=== PATIENT | male | born 1960 | race Caucasian/White ===

== ENCOUNTER 2023-10-04 11:27 | Outpatient (OUT) | payer MEDICARE, SELFPAY ==
--- NOTE | 2023-10-04 11:50 | XR_ITS ---
The [address] [address] Patient Name: MATEO STEARNS MRN: [id number] date: 1960 Sex: M Assigned Patient Location: [facility] Current Patient Location: [facility] Accession/Order Number: [id number] Exam Date: 10/04/2023 11:43 Report Date: 10/04/2023 13:50 At the request of: TANYA FELTON Procedure: XR hand RT min 3V PROCEDURE: XR hand RT min 3V COMPARISON: None. HISTORY: Right Hand Pain M79.641 FINDINGS: BONES:No acute fracture or dislocation. Flexion deformity of the fifth finger. Degenerative changes, severe at the first carpometacarpal joint where [id number]-[id number] articulation and proliferative osteophyte formation is observed SOFT TISSUES:Negative. No visible soft tissue swelling. EFFUSION:None visible. OTHER: Negative. XR/XR hand RT min 3V IMPRESSION: Osteoarthritis Electronically authenticated by: OK CISNEROS Date: 10/04/2023 13:50
--- NOTE | 2023-10-04 11:50 | XR_ITS ---
The [address] [address] Patient Name: MATEO STEARNS MRN: [id number] date: 1960 Sex: M Assigned Patient Location: [facility] Current Patient Location: [facility] Accession/Order Number: [id number] Exam Date: 10/04/2023 11:43 Report Date: 10/04/2023 16:13 At the request of: TANYA FELTON Procedure: XR cervical spine 2-3V XR cervical spine 2-3V, 10/04/2023 11:43 AM EST, [id number] INDICATION: Cervical Pain COMPARISON: None TECHNIQUE: 4 views submitted. FINDINGS: The bones appear osteopenic. There is grade 1 anterolisthesis of C4 on C5. No acute fracture or subluxation is identified. There is moderate disc space narrowing at C6/C7 and moderate anterior osteophyte formation at C3-C4, C5-C6 and C6-C7.. The visualized soft tissues appear unremarkable. There is bilateral facet arthropathy. XR/XR cervical spine 2-3V IMPRESSION: Degenerative changes. No acute fracture or subluxation is seen. Electronically authenticated by: JERRICA CHAIREZ Date: 10/04/2023 16:13
== END 2023-10-04 11:28 | disposition home or self-care (01) ==
LOC: RAD 11:31
PROVIDERS: PCP Nurse Practitioner; Visit Provider Nurse Practitioner
DX: M79.641 Pain in right hand (principal); M47.812 Spondylosis without myelopathy or radiculopathy, cervical region; M19.041 Primary osteoarthritis, right hand
CPT/HCPCS: 72040; 73130

== ENCOUNTER 2023-11-30 12:32 | Outpatient (OUT) | payer MEDICARE, SELFPAY ==
--- OUTSIDE RECORDS SUMMARY | 2023-11-30 12:36 | XMS_ITS | CCD ---
Author Name Unknown Address [address] [place] [address] Organization [facility] Care Team Providers Care Expedition Supervisor Name Role Phone Bryan Quick Attending Provider [phone] TANYA FELTON Primary Care Physician AICHHOLZ, GENERAL INTERNAL MEDICINE PHYSICIAN TANYA Primary Care Unavailable DR LEONOR MA Consulting Unavailable SAMSA ., ROBERTO Admitting Unavailable SAMSA ., ROBERTO Attending Unavailable SAMSA ., ROBERTO Consulting Unavailable AICHHOLZ, GENERAL INTERNAL MEDICINE PHYSICIAN TANYA Admitting Unavailable AICHHOLZ, GENERAL INTERNAL MEDICINE PHYSICIAN TANYA Attending Unavailable AICHHOLZ, GENERAL INTERNAL MEDICINE PHYSICIAN TANYA Consulting Unavailable AICHHOLZ, GENERAL INTERNAL MEDICINE PHYSICIAN TANYA Primary Care Unavailable AICHHOLZ, GENERAL INTERNAL MEDICINE PHYSICIAN TANAY Admitting Unavailable AICHHOLZ, GENERAL INTERNAL MEDICINE PHYSICIAN TANYA Primary Care Unavailable AICHHOLZ, GENERAL INTERNAL MEDICINE PHYSICIAN TANYA Attending Unavailable AICHHOLZ, GENERAL INTERNAL MEDICINE PHYSICIAN TANYA Consulting Unavailable AICHHOLZ, GENERAL INTERNAL MEDICINE PHYSICIAN TANYA Primary Care Unavailable DR LEONOR MA Consulting Unavailable SAMSA ., ROBERTO Admitting Unavailable SAMSA ., ROBERTO Attending Unavailable SAMSA ., ROBERTO Consulting Unavailable DR LEONOR MA Consulting Unavailable SAMSA ., ROBERTO Admitting Unavailable SAMSA ., ROBERTO Attending Unavailable SAMSA ., ROBERTO Consulting Unavailable DR ELSA NOBLE Admitting Unavailable DR OK CISNEROS V Consulting Unavailable AICHHOLZ, GENERAL INTERNAL MEDICINE PHYSICIAN TANYA Primary Care Unavailable DR ELSA NOBLE Attending Unavailable DR ELSA NOBLE Consulting Unavailable SAMSA ., ROBERTO Admitting Unavailable AICHHOLZ, GENERAL INTERNAL MEDICINE PHYSICIAN TANYA Primary Care Unavailable SAMSA ., ROBERTO Attending Unavailable SAMSA ., ROBERTO Consulting Unavailable SAMSA ., ROBERTO Admitting Unavailable AICHHOLZ, GENERAL INTERNAL MEDICINE PHYSICIAN TANYA Primary Care Unavailable ANIL, DR LEONOR Reina Consulting Unavailable SAMSA ., ROBERTO Attending Unavailable SAMSA ., ROBERTO Consulting Unavailable DIONY, Pino Reina Attending Unavailable VALDEZ, Pino Reina Referring Unavailable VALDEZ, Pino Reina Admitting Unavailable VALDEZ, Pino Reina Attending Unavailable VALDEZ, Pino Reina Attending Unavailable VALDEZ, Pino Reina Attending Unavailable VALDEZ, Pino Reina Attending Unavailable VALDEZ, Pino Reina Attending Unavailable VALDEZ, Pino R Referring Unavailable VALDEZ, Pino Reina Admitting Unavailable Allergies Allergy Classification Reported Allergen(s) Allergy Type Date of Onset Reaction(s) Facility (1 source) No Known Medication Allergies; Translations: [No Known Medication Allergies] Propensity to adverse reactions (disorder) [facility] Repository Medications Current Medications Medication Drug Class(es) Dates Sig (Normalized) Sig (Original) aspirin 81 mg oral tablet (6 sources) Platelet Aggregation Inhibitor, Nonsteroidal Anti-inflammatory Drug Start: 08-05-2022 take 81 mg by mouth once daily aspirin 81 mg, Oral, Daily Start Date: 08/05/22 Status: Ordered Start: 05-17-2022 [facility] 81 MG TABLET [facility] ASP[facility]IN [facility] 81 MG TABLET Start Date: 05/17/22 Status: Ordered Tessalon Perles (4 sources) Non-narcotic Antitussive Start: 08-05-2022 Tessalon Perles Oral, q12hr, PRN Cough Start Date: 08/05/22 Status: Ordered budesonide-formo terol 160 mcg-4.5 mcg/inh Inh Aer w/adapter (6 sources) Start: 05-17-2022 take 2 puff(s) by inhalation twice daily budesonide-form oterol 160 mcg-4.5 mcg/inh Inh Aer w/adapter 2 puff(s), Inhalation, BID, Refill(s) 0 Start Date: 05/17/22 Status: Ordered Start: 05-17-2022 budesonide-for moterol 160 mcg-4.5 mcg/inh Inh Aer w/adapter Refill(s) 0 Start Date: 05/17/22 Status: Ordered 24 hr dilTIAZem hydrochloride 180 mg extended release oral capsule (6 sources) Calcium Channel Torres Start: 05-17-2022 take 1 capsule by mouth once daily Dilt-XR 180 mg/24 hours oral capsule, extended release 180 mg = 1 cap(s), Oral, Daily, Refills(s) 0 Start Date: 05/17/22 Status: Ordered Start: 05-17-2022 Dilt-XR 180 mg /24 hours oral capsule, extended release Refills(s) 0 Start Date: 05/17/22 Status: Ordered Protonix (4 sources) Proton Pump Inhibitor Start: 08-05-2022 take 1 dose by mouth once daily roflumilast 0.5 mg oral tablet (6 sources) Phosphodiesterase 4 Inhibitor Start: 05-17-2022 take 1 tablet by mouth once daily Daliresp 500 mcg oral tablet 500 mcg = 1 tab(s), Oral, Daily, Refills(s) 0 Start Date: 05/17/22 Status: Ordered 60 actuat tiotropium 0.0025 mg/actuat inhalation spray (6 sources) Anticholinergic Start: 05-17-2022 take 1 puff(s) by inhalation once daily Spiriva Respimat 60 ACT 2.5 mcg/inh inhalation aerosol one puff, Inhalation, Daily, Refills(s) 0 Start Date: 05/17/22 Status: Ordered Start: 05-17-2022 Spiriva Respim at 60 ACT 2.5 mcg/inh inhalation aerosol Refills(s) 0 Start Date: 05/17/22 Status: Ordered Ventolin HFA 90 mcg/inh Aerosol-Adpt (6 sources) Start: 05-17-2022 take 1 puff(s) by inhalation every four hours Ventolin HFA 90 mcg/inh Aerosol-Adpt 1 puff(s), Inhalation, q4hr Shortness of breath or wheezing, Refill(s) 0 Start Date: 05/17/22 Status: Ordered Start: 05-17-2022 Ventolin HFA 9 0 mcg/inh Aerosol-Adpt Refill(s) 0 Start Date: 05/17/22 Status: Ordered Problems Active Problems Problem Classification Problem Date Documented Da te Episodic/Chronic Alcohol-related disorders (1 source) Alcohol dependence, uncomplicated; Translations: [ALCOHOL DEPENDENCE UNCOMPLICATED] Onset: 2 Chronic Cancer of prostate (2 sources) Malignant neoplasm of prostate; Translations: [Malignant tumor of prostate] Onset: 3 Chronic Chronic obstructive pulmonary disease and bronchiectasis (1 source) Emphysema, unspecified; Translations: [EMPHYSEMA UNSPECIFIED] Onset: 2 Chronic Esophageal disorders (6 sources) Gastroesophageal reflux disease 04-19-2022 Chronic Gout and other crystal arthropathies (6 sources) Gout 04-19-2022 Chronic Osteoarthritis (6 sources) Arthritis 04-19-2022 Chronic Other gastrointestinal disorders (6 sources) Scrotal mass 04-19-2022 Episodic Other nervous system disorders (6 sources) Neuropathy 04-19-2022 Chronic Other screening for suspected conditions (not mental disorders or infectious disease) (1 source) Encounter for screening for malignant neoplasm of prostate; Translations: [Screening for malignant neoplasm done] Onset: 2 Episodic Other skin disorders (3 sources) Sebaceous cyst of skin; Translations: [Sebaceous cyst] Onset: 2 Episodic Pleurisy; pneumothorax; pulmonary collapse (6 sources) Focal atelectasis 04-19-2022 Episodic Respiratory failure; insufficiency; arrest (adult) (6 sources) Chronic hypoxemic respiratory failure 04-19-2022 Chronic Unclassified (6 sources) Patient encounter status 05-17-2022 Unclassified (6 sources) Sebaceous cyst of skin 05-17-2022 Unclassified (1 source) COUGH, UNSPECIFIED; Translations: [COUGH, UNSPECIFIED] Onset: 2 Unclassified (1 source) CONTACT W/AND (SUSP) EXPOS COVID-19; Translations: [CONTACT W/AND (SUSP) EXPOS COVID-19] Onset: 2 Past or Other Problems Problem Classification Problem Date Documented Da te Episodic/Chronic Other aftercare (1 source) Other intermodal 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 service (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 therapy; Translations: [OTH LOCATE TECHNICIAN CURRENT DRUG THERAPY] Onset: 08-13-2022 Episodic Other lower respiratory disease (4 sources) Other nonspecific abnormal finding of lung field; Translations: [OTH NONSPECIFIC ABN FIND LNG FIELD] Onset: 01-04-2023 Episodic Other lower respiratory disease (1 source) Hemoptysis; Translations: [HEMOPTYSIS] Onset: 08-19-2022 Episodic Other lower respiratory disease (4 sources) Pleurodynia; Translations: [PLEURODYNIA] Onset: 08-12-2022 Episodic Other lower respiratory disease (4 sources) Shortness of breath; Translations: [SHORTNESS OF BREATH] Onset: 05-03-2022 Episodic Other nutritional; endocrine; and metabolic disorders (1 source) Abnormal weight loss; Translations: [ABNORMAL WEIGHT LOSS] Onset: 08-19-2022 Episodic Screening and history of mental health and substance abuse codes (1 source) Personal history of nicotine dependence; Translations: [PERSONAL HISTORY OF NICOTINE DEPEND] Onset: 08-13-2022 Episodic Results Test Name Value Interpretation Reference Range Facility IntraOperative Documentson 0 06-09-2023 IntraOperative Documents [id number] #1.00CD:127 [facility] Ambulatory Visit Summaryon 0 06-06-2023 Ambulatory Visit Summary MATEO STEARNS :1960 Visit Date:06/06/2023 Ambulatory Visit Instructions Your Diagnosis Prostate cancer Sebaceous cyst Tests Performed Urnls Dip Stick Auto w/o Microscopy POC 90211 Your Care Team Attending Physician - DIONY CHANDLER, Pino Reina Primary Care Physician - TANYA FELTON CNP This Is Your Medications List Contact prescribing physician if questions or concerns albuterol (Ventolin HFA 90 mcg/inh Aerosol-Adpt) aspirin benzonatate (Tessalon Perles) budesonide-formotero l (budesonide-formoter ol 160 mcg-4.5 mcg/inh Inh Aer w/adapter) diltiazem (Dilt-XR 180 mg/24 hours oral capsule, extended release) pantoprazole (Protonix) roflumilast (Daliresp 500 mcg oral tablet) tiotropium (Spiriva Respimat 60 ACT 2.5 mcg/inh inhalation aerosol) Procedures Performed Arthroplasty of the hip, Colonoscopy, Procedure on foot, Transrectal needle biopsy of prostate. Discharge Vitals Heart Rate (Peripheral) 72 Respiratory Rate 16 Blood Pressure 130/76 Height 175 cm Height 69 in Weight 64 kg Weight 140.8 lb BMI 20.9 What to do next Scheduled Follow-Up Appointments Tuesday 10:45 AM EST With: DIONY CHANDLER, Pino Reina Where: [facility] Patient Educationon 06-06-20 23 Patient Education Oncology Prostate Cancer The prostate is a small gland that produces fluid that makes up semen (seminal fluid). It is located below the bladder in men, in front of the rectum. Prostate cancer is the abnormal growth of cells in the prostate gland. What are the causes? The exact cause of this condition is not known. What increases the risk? You are more likely to develop this condition if: ? You are 65 years of age or older. ? You have a family history of prostate cancer. ? You have a family history of breast and ovarian cancer. ? You have genes that are passed from parent to child (inherited), such as BRCA1 and BRCA2. ? You have Goss syndrome. men and men of descent are diagnosed with prostate cancer at higher rates than other men. The reasons for this are not well understood and are likely due to a combination of genetic and environmental factors. What are the signs or symptoms? Symptoms of this condition include: ? Problems with urination. This may include: ? A weak or interrupted flow of urine. ? Trouble starting or stopping urination. ? Trouble emptying the bladder all the way. ? The need to urinate more often, especially at night. ? Blood in urine or semen. ? Persistent pain or discomfort in the lower back, lower abdomen, or hips. ? Trouble getting an erection. ? Weakness or numbness in the legs or feet. How is this diagnosed? This condition can be diagnosed with: ? A digital rectal exam. For this exam, a health care provider inserts a gloved finger into the rectum to feel the prostate gland. ? A blood test called a prostate-specific antigen (PSA) test. ? A procedure in which a sample of tissue is taken from the prostate and checked under a microscope (prostate biopsy). ? An imaging test called transrectal ultrasonography. Once the condition is diagnosed, tests will be done to determine how far the cancer has spread. This is called staging the cancer. Staging may involve imaging tests, such as a bone scan, CT scan, PET scan, or MRI. Stages of prostate cancer The stages of prostate cancer are as follows: ? Stage 1 (I). At this stage, the cancer is found in the prostate only. The cancer is not visible on imaging tests, and it is usually found by accident, such as during prostate surgery. ? Stage 2 (II). At this stage, the cancer is more advanced than it is in stage 1, but the cancer has not spread outside the prostate. ? Stage 3 (III). At this stage, the cancer has spread beyond the outer layer of the prostate to nearby tissues. The cancer may be found in the seminal vesicles, which are near the bladder and the prostate. ? Stage 4 (IV). At this stage, the cancer has spread to other parts of the body, such as the lymph nodes, bones, bladder, rectum, liver, or lungs. Prostate cancer grading Prostate cancer is also graded according to how the cancer cells look under a microscope. This is called the Hunters score and the total score can range from 6?10, indicating how likely it is that the cancer will spread (metastasize) to other parts of the body. The higher the score, the greater the likelihood that the cancer will spread. ? Brenden 6 or lower: This indicates that the cancer cells look similar to normal prostate cells (well differentiated). ? Hunters 7: This indicates that the cancer cells look somewhat similar to normal prostate cells (moderately differentiated). ? Brenden 8, 9, or 10: This indicates that the cancer cells look very different than normal prostate cells (poorly differentiated). How is this treated? Treatment for this condition depends on several factors, including the stage of the cancer, your age, personal preferences, and your overall health. Talk with your health care provider about treatment options that are recommended for you. Common treatments include: ? Observation for early stage prostate cancer (active surveillance). This involves having exams, blood tests, and in some cases, more biopsies. For some men, this is the only treatment needed. ? Surgery. Types of surgeries include: ? Open surgery (radical prostatectomy). In this surgery, a larger incision is made to remove the prostate. ? A laparoscopic radical prostatectomy. This is a surgery to remove the prostate and lymph nodes through several small incisions. It is often referred to as a minimally invasive surgery. ? A robotic radical prostatectomy. This is laparoscopic surgery to remove the prostate and lymph nodes with the help of robotic arms that are controlled by the surgeon. ? Cryoablation. This is surgery to freeze and destroy cancer cells. ? Radiation treatment. Types of radiation treatment include: ? External beam radiation. This type aims beams of radiation from outside the body at the prostate to destroy cancerous cells. ? Brachytherapy. This type uses radioactive needles, seeds, wires, or tubes that are implanted into the prostate gland. Like external be (more content not included)... Normal [facility] Urology Office/Clinic Noteon 06-06-2023 Urology Office/Clinic Note Chief Complaint elevated PSA HPI Staff Pt is here to review TRUS Bx pathology today. TRUS Bx done 05/17/23 due to a significant rise in his PSA. Pathology report shows 2 positive cores, left base and left lateral base with a GS of 6(3+3) in both. Current PSA done 04/08/23 was 4.46 and previous done 03/15/22 was 0.11. Previous dx of scrotal sebaceous cyst. Dysuria: no Incomplete bladder emptying: no Hematuria: no Frequency: no Urgency: no Nocturia: 1x Stream: no straining good stream Leaking: no Post void dripping: yes Wearing pads/ Depends: no Urge incontinence: no Stress incontinence: no Incontinence without Sensory Awareness: no Abdominal pain: no Flank pain: no Sexual complaints: no History of Present Illness Tests reviewed: reviewed UA, pathology report I have reviewed the previous health record information and history for this patient from Dr. Valdez. I have reviewed and verified the staff HPI to be accurate for this encounter. There have been no associated fever, chills, flank pain, or blood in the urine. Denies any urinary infections since last encounter. Review of Systems PHQ Score Initial Depression Screen Score: 0 ROS - Provider Constitutional: denies weight loss, denies hot flashes. Eyes: denies eye problems. Gastrointestinal: denies nausea, denies vomiting. Cardiovascular: denies chest pain or angina. Integumentary: no dryness Musculoskeletal: denies musculoskeletal symptoms. ENMT: denies otolaryngeal symptoms. Respiratory: no shortness of breath. Heme/Lymph: denies easy bleeding tendency, denies easy bruising tendency. Psychiatric: no confusion, no anxiety. Genitourinary: See HPI. Physical Exam Vitals & Measurements HR: 72(Peripheral) RR: 16 BP: 130/76 HT: 69 in HT: 175 cm WT: 64 kg WT: 140.8 lb BMI: 20.9 General Appearance: alert, no distress, well nourished, well developed male. Genitourinary: normal scrotum, normal testes, normal urethra, normal epididymis, normal vas deferens/spermatic cord. Flank Pain: none. Bladder: nonpalpable. Assessment/Plan 1. Prostate cancer (C61: Malignant neoplasm of prostate) ACTIVE SURVEILLANCE. Denies family history of Prostate cancer. PSA 03/15/2022 was 0.11 04/08/23 - 4.46 S/p TRUS/bx 05/17/23 - Brenden score 6 (3+3) in 2 cores each one is less than 10%. 2 HGPINs. The pathology report was reviewed with the patient in detail today. The report confirms evidence of malignancy. This was discussed with the patient and all questions were answered in terms the patient could understand completely, along with the implications. We will be making plans for further treatment and evaluation as the results demand. Discussed with patient, due to low GS, active surveillance is appropriate. The patient understands and agrees with this plan. -Follow up with PSA and ANNE-MARIE in 6 months or sooner if needed. Pt understands and agrees with plan. All questions/concerns were discussed. Pt to call the office if he encounters any issues prior. Pt acknowledges understanding. 2. Sebaceous cyst (L72.3: Sebaceous cyst) S/p excision of hemiscrotal 2 cm scrotal cyst 01/25/23. Path shows epidermal inclusion cyst, benign. UA today shows trace-lysed blood. Follow-up With When Contact Information DIONY CHANDLER, Pino Reina, FLAQUITO In 6 months [facility] [address], [place] [phone]- [phone] Additional Instructions: PSA and ANNE-MARIE Patient Education Prostate Cancer I, Vesta Cortes, personally scribed for Dr. Valdez on 06/06/2023 11:47:20. . Documentation recorded by the scribeVesta, accurately reflects the services(s) I performed and decisions made by me. Authenticated by Dr. Valdez on 06/06/2023 11:52:45. Problem List/Past Medical History Ongoing Arthritis Chronic GERD Chronic hypoxemic respiratory failure Gout Lobular atelectasis Neuropathy Prostate cancer Screening PSA (prostate specific antigen) Scrotal cyst Sebaceous cyst Historical No qualifying data Procedure/Surgical History Arthroplasty of the hip, Colonoscopy, Procedure on foot, Transrectal needle biopsy of prostate. Medications aspirin, 81 mg, Oral, Daily budesonide-formotero l 160 mcg-4.5 mcg/inh Inh Aer w/adapter, 2 puff(s), Inhalation, BID Daliresp 500 mcg oral tablet, 500 mcg= 1 tab(s), Oral, Daily Dilt-XR 180 mg/24 hours oral capsule, extended release, 180 mg= 1 cap(s), Oral, Daily Protonix, unknown dose, Oral, Daily Spiriva Respimat 60 ACT 2.5 mcg/inh inhalation aerosol, one puff, Inhalation, Daily Tessalon Perles, Oral, q12hr, PRN Ventolin HFA 90 mcg/inh Aerosol-Adpt, 1 puff(s), Inhalation, q4hr, PRN Allergies No Known Medication Allergies Social History Alcohol - Denies Alcohol Use, 06/06/2023 Substance Abuse - Denies Substance Abuse, 06/06/2023 Tobacco Former smoker, quit more than 30 days ago Tobacco Use:. Never Smokeless Tobacco Use:. Cigarettes, 02/07/2023 (more content not included)... Normal [facility] Comment on above: Result Comment: Elec tronically Signed By: Pino VALDEZ MD\.br\Date and Time Signed: 06/06/23 11:52 EDT\.br\Electronically Co-Signed By: Vesta Cortes\.br\Date and Time Co-Signed: 06/06/23 11:47 EDT Prostate Histology ([facility]) on 05-24-2023 Prostate Histology Diagnosis Info Invalid Interpretation Code [facility] Comment on above: Result Comment: A:Pr ostate,Left Lateral Base:Needle Biopsy Interpretation - - Acinar adenocarcinoma of prostate; Brenden score 6(3+3); Tumor measures 0.12 cm in length; 8% of the core involved by tumor; 1 of 1 core involved (see comment). MicroScopic Description - B:Prostate,Left Lateral Mid:Needle Biopsy Interpretation - - Benign prostatic tissue. MicroScopic Description - C:Prostate,Left Lateral Red Bud:Needle Biopsy Interpretation - - Benign prostatic tissue. MicroScopic Description - D:Prostate,Left Base:Needle Biopsy Interpretation - - Acinar adenocarcinoma of prostate; Hunters score 6(3+3); Tumor measures 0.08 cm in length; 4% of the core involved by tumor; 1 of 1 core involved (see comment). MicroScopic Description - - High-grade prostatic intraepithelial neoplasia (HGPIN). E:Prostate,Left Mid:Needle Biopsy Interpretation - - Benign prostatic tissue. MicroScopic Description - F:Prostate,Left Red Bud:Needle Biopsy Interpretation - - Atypical small acinar glands. MicroScopic Description - G:Prostate,Right Base:Needle Biopsy Interpretation - - Benign prostatic tissue. MicroScopic Description - H:Prostate,Right Mid:Needle Biopsy Interpretation - - Benign prostatic tissue. MicroScopic Description - I:Prostate,Right Red Bud:Needle Biopsy Interpretation - - High-grade prostatic intraepithelial neoplasia (HGPIN). MicroScopic Description - J:Prostate,Right Lateral Base:Needle Biopsy Interpretation - - High-grade prostatic intraepithelial neoplasia (HGPIN). MicroScopic Description - K:Prostate,Right Lateral Mid:Needle Biopsy Interpretation - - Benign prostatic tissue. MicroScopic Description - L:Prostate,Right Lateral Red Bud:Needle Biopsy Interpretation - - Benign prostatic tissue. MicroScopic Description - Gross Description Site ID:A color rivera-white fixative Formalin cores 1 units cm Site ID:B color rivera-white fixative Formalin cores 1 units cm Site ID:C color rivera-white fixative Formalin cores 1 units cm Site ID:D color rivera-white fixative Formalin cores 1 units cm Site ID:E color rivera-white fixative Formalin cores 1 units cm Site ID:F color rivera-white fixative Formalin cores 1 units cm Site ID:G color rivera-white fixative Formalin cores 1 units cm Site ID:H color rivera-white fixative Formalin cores 1 units cm Site ID:I color rivera-white fixative Formalin cores 1 units cm Site ID:J color rivera-white fixative Formalin cores 1 units cm Site ID:K color rivera-white fixative Formalin cores 1 units cm Site ID:L color rivera-white fixative Formalin cores 1 units cm Highest grade group: Brenden score 3+3=6, grade group 1. Highest percentage of core involvement: 8 % Cribriform pattern 4: Absent A and D: Adenocarcinoma cells demonstrate lack of basal cell lining per immunostain HMW cytokeratins /p63 and luminal positivity for P504S (PIN4 immunostain). This Grade Group system was recently endorsed by both the International Society of Urological Pathology (ISUP, 2015) and the World Health Organization (WHO). The use of one or more reagents in the above tests is regulated as an analytic specific reagent (ASR). The performance characteristics were determined by the [employer], [place]. They have not been cleared by the [place] Food and Drug Administration. The FDA has determined that such clearance or approval is not necessary. Appropriate positive and negative controls are performed and are acceptable. Electronically signed by : on: 05/24/2023 12:41:39 Performed By: #### 1 [id number] ####[facility] [id number] [place] [address] Consent for Procedure/Surger yon 05-17-2023 Consent for Procedure/Surgery [id number] 3#1.00CD:127 Normal [facility] Consent for Treatmenton 2 Consent for Treatment [id number] #1.00CD:127 Normal [facility] IntraOperative Documentson 0 05-17-2023 IntraOperative Documents [id number] 5#1.00CD:127 Normal [facility] Main OR Intraoperative Recor don 05-17-2023 Main OR Intraoperative Record IntraOp Document Type FTURO Summary Primary Physician: Pino VALDEZ MD Finalized Date/Time: 05/17/23 11:14:47 Pt. Name: JINNYMATEO/Sex: 1960 Male Med Rec #: [id number] Physician: Pino VALDEZ MD Financial #: [id number] Pt. Type: O Room/Bed: / Admit/Disch: 05/17/23 10:34:13 - Institution: Case Times FTURO Entry 1 Patient Times In Room 05/17/23 10:56:00 Out Room 05/17/23 11:14:00 Procedure Times Start 05/17/23 11:01:00 Stop 05/17/23 11:09:00 Anesthesia Times Last Modified By: Diana Kiran RN 05/17/23 11:14:41 Case Attendance FTURO Entry 1 Entry 2 Entry 3 Case Attendee DIONY CHANDLER, Pino Redding SANITATION SUPERVISOR, Diana Albarran RN Role Performed Surgeon - Primary Scrub - Primary Talent Advisor - Primary Time In 05/17/23 10:56:00 05/17/23 10:56:00 05/17/23 10:56:00 Time Out 05/17/23 11:14:00 05/17/23 11:14:00 05/17/23 11:14:00 Procedure PROSTATE TRANSRECTAL PROSTATE TRANSRECTAL PROSTATE TRANSRECTAL ULTRASOUND WITH BIO(.) ULTRASOUND WITH BIO(.) ULTRASOUND WITH BIO(.) Comments Last Modified By: Diana Kiran RN, RN, Diana Silvestre RN 05/17/23 11:14:43 05/17/23 11:14:43 05/17/23 11:14:43 Surgical Procedures FTURO Entry 1 Procedure Description Procedure PROSTATE TRANSRECTAL Modifiers . ULTRASOUND WITH BIOPSY Surgeon Description PROSTATE TRANSRECTAL ULTRASOUND WITH BIOPSY Primary Procedure Yes Primary Surgeon Pino VALDEZ MD Start 05/17/23 11:01:00 Stop 05/17/23 11:09:00 Anesthesia Type Local Surgical Service Urology Wound Class 2 - Clean-Contaminated Last Modified By: Diana Kiran RN 05/17/23 11:09:09 General Case Data FTURO Pre-Care Text: Classifies surgical wound, implements aseptic technique, initiates traffic control Entry 1 Case Information OR URO 1 FT Case Level None Wound Class 2 - Clean-Contaminated Specialty Urology Preop Diagnosis ELEVATED PSA Postop Same As Preop Yes Postop Diagnosis ELEVATED PSA Outcomes Met? Yes Last Modified By: Diana Kiran RN 05/17/23 11:05:23 Post-Care Text: The patient is free from signs and symptoms of infection EU IntraOp - FTURO Pre-Care Text: Implements protective measures prior to operative or invasive procedure, confirms identity before the operative or invasive procedure, verifies operative procedure, surgical site, and laterality Entry 1 EU Perioperative Protocols Procedure(s) PROSTATE TRANSRECTAL Patient Identity Birthday, ID Band ULTRASOUND WITH BIO(.) Verified (select at Check, Patient least 2): Participation Consents / H and P HandP, Surgery/Procedure Operative Site N/A Verified Consent Marking Verified Surgical Site Yes Laterality Verified Yes Verified Procedure Verified Yes Correct Patient Yes Position Verified Availability Equipment, Medication Time Out Pino VALDEZ MD, Verified (If Participants Chanell Redding CST, Applicable) Diana Kiran RN Time Out Complete 05/17/23 10:57:00 Allergies Reviewed? Yes Allergies Reviewed Self/Patient With Body Position Lateral, right side up Prep Area NONE Prep Agents None Skin. Condition Dry, Warm, Unable to Description UNABLE TO VISUALIZE DUE Visualize TO PATIENT PARTIALLY CLOTHED Additional FISH, Other (See Specimens Comment PROSTATE TISSUE X 12 Specimens Collected Comment) SPECIMENS Vitals - EU Blood Pressure 124/80 Pulse 76 bpm Respirations 20 br/min SPO2 97 % EBL 0 IandO - EU Total Intake 0 mL Total Output 0 mL Outcomes Met? Yes Last Modified By: Diana Kiran RN 05/17/23 11:07:17 Post-Care Text: The patient is free from signs and symptoms of injury caused by extraneous objects Sign Out FTURO Entry 1 Before Patient Leaves OR Nurse verbally Yes Nurse verbally Yes confirms with the confirms with the team the name of team that the procedure(s) instrument, sponge, recorded and needle counts are correct (or N/A) Nurse verbally Yes Nurse verbally Yes confirms with the confirms with the team how the team whether there specimen is labeled are any equipment (including patient problems to be name), if applicable addressed Sign Out Complete 05/17/23 11:09:00 Last Modified By: Diana Kiran RN 05/17/23 11:09:08 Case Comments Finalized By: Diana Kiran RN Document Signatures Signed By: Diana Kiran RN 05/17/23 11:14 Normal [facility] Main OR Preoperative Recordo n 05-17-2023 Main OR Preoperative Record Holding Area Document Type FTURO Summary Primary Physician: Pino VALDEZ MD Finalized Date/Time: 05/17/23 10:57:44 Pt. Name: MATEO STEARNS/Sex: 1960 Male Med Rec #: [id number] Physician: Pino VALDEZ MD Financial #: [id number] Pt. Type: O Room/Bed: / Admit/Disch: 05/17/23 10:34:13 - Institution: Case Times Holding FTURO Pre-Care Text: Verifies consent for planned procedure, identifies individual values and wishes concerning care, includes family members in perioperative teaching Secures patient's records' belongings, and valuables, maintains patient's dignity and privacy, and maintains patient confidentiality Entry 1 In Holding 05/17/23 10:47:00 Outcomes Met? Yes Last Modified By: Annia Andersen LPN 05/17/23 10:47:02 Post-Care Text: The patient participates in decisions affecting his or her perioperative plan of care The patient's right to privacy is maintained Surgery Checklist FTURO Entry 1 Patient Birthday, ID Band Procedure Surgical Consent, With Identification: Check, Patient Verification: Patient Participation NPO after Midnight: n/a Date/Time: 05/17/23 10:48:00 Personal Items: Glasses Personal Items glasses Comment: Complaints of Pain: No Skin Integrity Intact, [place], Warm, & Dry Vitals - EU Blood Pressure 124/80 Pulse 76 bpm Respirations 20 br/min SPO2 97 % RN Reviewed Yes Last Modified By: Diana Kiran RN 05/17/23 10:57:42 General Comments: Temp 37.0 Finalized By: Diana Kiran RN Document Signatures Signed By: Annia Andersen LPN 05/17/23 10:51 Diana Kiran RN 05/17/23 10:57 Normal [facility] Operative Reporton Operative Report Patient: MATEO STEARNS Age: 62 years Sex: Male : 1960 Associated Diagnoses: None Author: Pino VALDEZ MD Procedure Operative Information Details: Date/ Time: 05/17/2023 11:14:00. Pre-Op Dx: Elevated PSA - R97.20. Post-Op Dx: Same. Anesthesia Type: Local, Periprostatic Nerve Block. Procedure: Transrectal Ultrasound and Transrectal Ultrasound-Guided Biopsy of the Prostate. Complications: None. Risks/Benefits/Infor med Consent: Surgical risks, benefits, details of the procedure have been explained to the patient, Full informed consent has been obtained. Intraoperative Information Prepped: The patient was brought to the office suite, placed in the modified left lateral Vazquez position, The patient was draped appropriately, 80 mg Gentamicin IM injection administered. Procedure: Then 2% Xylocaine jelly was used for intrarectal anesthesia, After waiting several minutes, a well lubricated ultrasound probe was introduced per rectum, The prostate was carefully evaluated in the AP and Sagittal views. Volume: 26 CC. Specimens Removed: A total of 12 biopsies were taken, 6 from each side, and sent to pathology. Devices Implanted: None. Postoperative Information Discharge: The patient tolerated the procedure well and was discharged home in satisfactory condition, The patient was instructed to (Finish antibiotics, Avoid strenuous activity, Go to the emergency room for gross bleeding, fever, or chills). Radiology Report Procedure: Transrectal Ultrasound of the Prostate, Transrectal US guided needle biopsy of the prostate. Narrative: Ultrasound probe is introduced and performed in the longitudinal and transverse plains, The gland measures (49 MM Length, 43 MM Width, 24 MM Depth, with a calculated volume of 26 CC), The prostatic capsule and seminal vesicles appear to be within normal limits, The peripheral zone demonstrates No abnormalities, Rest of the prostate demonstrates No abnormalities, Ultrasound guidance was then utilized to obtain 12 biopsies, These were sent to pathology for evaluation. Normal [facility] Comment on above: Result Comment: Elec tronically Signed By: DIONY CHANDLER, Pino [email or web address].[email or web address]\Date and Time Signed: 05/17/23 11:16 EDT Outpatient Surgery Discharge Instructionon 05-17-2023 Outpatient Surgery Discharge Instruction [id number] 3#[email or web address]:127 Normal [facility] Patient Educationon 05-17-20 23 Patient Education Custom Transrectal Ultrasound of the Prostate with US guided biopsy ? Even though there are no visible incisions, multiple prostate biopsies have been taken through the rectum and you need to follow some instructions to minimize the risks of bleeding. ? You may see some blood in your urine and stool for up to 1 week (and blood in the semen for several months) ? Diet -You may resume your normal diet, but you may want to avoid alcohol, carbonated drinks, caffeine, and spicy foods, which may increase the irritation from the surgery. -Drink plenty of water to keep the urine clear. ? Activity -You should limit any physical activity for about 48 hours -No heavy lifting or straining (10 pound limit) -No driving a car and limit long car rides for 2 days -No strenuous exercise -No sexual intercourse until this is discussed with your doctor ? Bowels -Try to keep your bowel movements soft to minimize straining to have a bowel movement. -You may use a stool softener or over the counter laxative if needed -Difficult bowel movement may lead to straining and bleeding from the prostate ? Medications -You may resume your home medications unless instructed otherwise -Hold aspirin, ibuprofen, Coumadin (warfarin) and other blood thinners for about two days or until there is no active bleeding unless otherwise instructed -Finish the antibiotic which you have already started ? Things to watch for which would require an Emergency Room visit or call 911: (this is not a complete list) -Persistent or heavy bleeding or blood clots from the rectum or in the urine -Inability to urinate -Fever over 101.5 degrees Fahrenheit, with or without chills -Severe drug reactions with itching, hives or rash -Tenderness or swelling of the calves, chest pain, or shortness of breath ? Please call the office to arrange for your post-operative appointment in 1-2 weeks [phone] or [phone] Normal [facility] Prostate Histology ([facility]) on 05-17-2023 PH Method of Extraction Needle Biopsy Normal [facility] Comment on above: Performed By: #### 1 [id number] ####[facility] [address] [place] [address] PH Number of Jars 2 Invalid Interpretation Code [facility] Comment on above: Performed By: #### 1 [id number] ####[facility] [address] [address] PH Specimen 1 L Base Prostate Normal [facility] Comment on above: Performed By: #### 1 [id number] ####[facility] [address] [address] PH Specimen 10 R Lat Bse Prost Normal [facility] Comment on above: Performed By: #### 1 [id number] ####[facility] [address] [place] [address] PH Specimen 11 R Lat Mid Prost Normal [facility] Comment on above: Performed By: #### 1 [id number] ####[facility] [address] [place] [address] PH Specimen 12 R Lat Apx Prost Normal [facility] Comment on above: Performed By: #### 1 [id number] ####[facility] [address] [place] [address] PH Specimen 2 L Mid Prostate Normal [facility] Comment on above: Performed By: #### 1 [id number] ####[facility] [address] [place] [address] PH Specimen 3 L Apx Prostate Normal [facility] Comment on above: Performed By: #### 1 [id number] ####[facility] [address] [place] [address] PH Specimen 4 L Lat Bse Prost Normal [facility] Comment on above: Performed By: #### 1 [id number] ####[facility] [address] [place] [address] PH Specimen 5 L Lat Mid Prost Normal [facility] Comment on above: Performed By: #### 1 [id number] ####[facility] [address] [place] [address] PH Specimen 6 L Lat Apx Prost Normal [facility] Comment on above: Performed By: #### 1 [id number] ####[facility] [address] [place] [address] PH Specimen 7 R Base Prostate Normal [facility] Comment on above: Performed By: #### 1 [id number] ####[facility] [address] [place] [address] PH Specimen 8 R Mid Prostate Normal [facility] Comment on above: Performed By: #### 1 [id number] ####[facility] [address] [place] [address] PH Specimen 9 R Apx Prostate Normal [facility] Comment on above: Performed By: #### 1 [id number] ####[facility] [address] [place] [address] PH Type of Service Technical Only Normal [facility] Comment on above: Performed By: #### 1 [id number] ####[facility] [address] [place] [address] Lab Reportson 05-16-2023 Lab Reports [id number] #1.00CD:127 Normal [facility] Insurance Correspondenceon 0 04-29-2023 Insurance Correspondence [id number] 5#1.00CD:127 Normal [facility] PSA, FREE AND TOTAL RATIOon 04-13-2023 % Free PSA 12.1 % Normal [facility] Comment on above: Result Comment: The table below lists the probability of prostate cancer for men with non-suspicious ANNE-MARIE results and total PSA between 4 and 10 ng/mL, by patient age (Ernestine et al, DONALDO 1998, 279:1542). % Free PSA 50-64 yr 65-75 yr 0.00-10.00% 56% 55% 10.01-15.00% 24% 35% 15.01-20.00% 17% 23% 20.01-25.00% 10% 20% >25.00% 5% 9% Please note: Ernestine et al did not make specific recommendations regarding the use of percent free PSA for any other population of men. Performed By: #### H ISTGAL #### [facility] [address] [place] [address] Dr. James Crowley Prostate specific Ag [Mass/Vol] 3.4 ng/mL Normal 0.0-4.0 [facility] Comment on above: Result Comment: Rosa Elena HILLIA methodology. . According to the [employer], Serum PSA should decrease and remain at undetectable levels after radical prostatectomy. The AUA defines biochemical recurrence as an initial PSA value 0.2 ng/mL or greater followed by a subsequent confirmatory PSA value 0.2 ng/mL or greater. Values obtained with different assay methods or kits cannot be used interchangeably. Results cannot be interpreted as absolute evidence of the presence or absence of malignant disease. Performed By: #### H ISTGAL #### [facility] [address] [address] [address] James Crowley PSA, Free 0.41 ng/mL Normal N/A [facility] Comment on above: Result Comment: Roch e ECLIA methodology. Performed By: #### H ISTGAL #### [facility] [address] [address] [address] James Crowley CBC AUTO DIFFon 04-08-2023 BASO # 0.1 103/ul Normal 0.0-0.1 [facility] Comment on above: Performed By: #### C BC #### [facility] [address] [place] [address] Dr. James Crowley Basophils/100 WBC (Bld) 0.5 % Normal 0.2-2.0 [facility] Comment on above: Performed By: #### C BC #### [facility] [address] [place] [address] Dr. James Crowley EO # 0.1 103/ul Normal 0.0-0.7 [facility] Comment on above: Performed By: #### C BC #### [facility] [address] [place] [address] Dr. James Crowley Eosinophils/100 WBC (Bld) 1.3 % Normal 0.9-7.0 [facility] Comment on above: Performed By: #### C BC #### [facility] [address] [place] [address] Dr. James Crowley Erythrocyte distribution width (RBC) [Ratio] 13.5 % Normal 11.0-15.0 [facility] Comment on above: Performed By: #### C BC #### [facility] [address] [place] [address] Dr. James Crowley Hematocrit (Bld) [Volume fraction] 48.4 % Normal 42.0-54.0 [facility] Comment on above: Performed By: #### C BC #### [facility] [address] [place] [address] Dr. James Crowley Hemoglobin (Bld) [Mass/Vol] 15.6 g/dL Normal 14.0-18.0 [facility] Comment on above: Performed By: #### C BC #### [facility] [address] [place] [address] Dr. James Crowley IG # 0.08 10e3/ul Critically high 0.00-0.03 [facility] Comment on above: Performed By: #### C BC #### [facility] [address] [place] [address] Dr. James Crowley IG % 0.8 % Critically high 0.0-0.5 [facility] Comment on above: Performed By: #### C BC #### [facility] [address] [place] [address] Dr. James Crowley LYMPH # 3.1 103/ul Normal 1.2-3.8 [facility] Comment on above: Performed By: #### C BC #### [facility] [address] [place] [address] Dr. James Crowley Lymphocytes/100 WBC (Bld) 29.8 % Normal 20.5-60.0 [facility] Comment on above: Performed By: #### C BC #### [facility] [address] [place] [address] Dr. James Crowley MANUAL DIFF REQ NO Normal [facility] Comment on above: Performed By: #### C BC #### [facility] [address] [place] [address] Dr. James Crowley MCH (RBC) [Entitic mass] 29.3 pg Normal 25.9-34.0 [facility] Comment on above: Performed By: #### C BC #### [facility] [address] [place] [address] Dr. James Crowley MCHC (RBC) [Mass/Vol] 32.2 g/dL Normal 29.9-35.2 [facility] Comment on above: Performed By: #### C BC #### [facility] [address] [place] [address] Dr. James Crowley MCV (RBC) [Entitic vol] 90.8 fL Normal 80.0-94.0 [facility] Comment on above: Performed By: #### C BC #### [facility] [address] [place] [address] Dr. James Crowley MONO # 0.6 103/ul Normal 0.3-0.8 [facility] Comment on above: Performed By: #### C BC #### [facility] [address] [place] [address] Dr. James Crowley Monocytes/100 WBC (Bld) 5.9 % Normal 1.7-12.0 [facility] Comment on above: Performed By: #### C BC #### [facility] [address] [place] [address] Dr. James Crowley NEUT # 6.4 103/ul Normal 1.4-6.5 [facility] Comment on above: Performed By: #### C BC #### [facility] [address] [place] [address] Dr. James Crowley Neutrophils/100 WBC (Bld) 61.7 % Normal 43.0-75.0 [facility] Comment on above: Performed By: #### C BC #### [facility] [address] [place] [address] Dr. James Crowley Platelet mean volume (Bld) [Entitic vol] 9.1 fL Critically low 9.5-13.5 [facility] Comment on above: Performed By: #### C BC #### [facility] [address] [place] [address] Dr. James Crowley PLT 320 103/ul Normal 150-450 [facility] Comment on above: Performed By: #### C BC #### [facility] [address] [place] [address] Dr. James Crowley RBC 5.33 106/ul Normal 4.70-6.10 [facility] Comment on above: Performed By: #### C BC #### [facility] [address] [place] [address] Dr. James Crowley WBC 10.4 103/ul Normal 4.0-11.0 [facility] Comment on above: Performed By: #### C BC #### [facility] [address] [place] [address] CHEST W CONon 04-08-2023 CT CHEST W CON EXAMINATION: CT CHEST W CON HISTORY: Lung field abnormal ; follow-up right lung base mass COMPARISON: CT chest 01/04/2023, 10/07/2022, 03/08/2019 TECHNIQUE: Multi-planar CT images were created with IV contrast. Axial, Coronal, and Sagittal images. Dose reduction techniques were achieved by using automated exposure control and/or adjustment of mA and/or kV according to patient size and/or use of iterative reconstruction technique. FINDINGS: LUNGS: Emphysematous changes. 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 PLEURA: No mass, effusion, or pneumothorax. VASCULATURE: No abnormality. AYLA: No mass or adenopathy. MEDIASTINUM: Calcified lymph nodes. CARDIAC: No enlargement, pericardial thickening, or significant calcification. AORTA: Saccular aneurysm projecting left lateral from distal aortic arch, 3.5 cm in total diameter. CHEST WALL: No mass or axillary adenopathy. BONES: No bone lesion or fracture. LIMITED ABDOMEN: No suspicious findings Limited images of the upper abdomen. OTHER: Negative. IMPRESSION: 1. Moderate-marked emphysematous changes throughout the lungs. 2. Clearing of previously seen right basilar infiltrates. No suspicious nodules or findings. 3. Stable saccular aneurysm of distal aortic arch, 3.5 cm in diameter. Electronically authenticated by: LEONOR MA Date: 2023-04-08 10:41 Normal [facility] LIPID PROFILEon 04-08-2023 CHOL-HDL RATIO NORM SEE BELOW Normal [facility] Comment on above: Result Comment: 3.3 - 4.4 LOW RISK 4.4 - 7.1 AVERAGE RISK 7.1 - 11.0 MODERATE RISK >11.0 HIGH RISK Performed By: #### U NEO, LIPID #### [facility] [address] [address] [address] James Crowley Cholesterol [Mass/Vol] 204 mg/dL Critically high <=200 [facility] Comment on above: Performed By: #### U NEO, LIPID #### [facility] [address] [address] [address] James Crowley Cholesterol in HDL [Mass/Vol] 55 mg/dL Normal 40-60 [facility] Comment on above: Performed By: #### U NEO, LIPID #### [facility] [address] [place], [place] [address] Dr. James Crowley Cholesterol in LDL [Mass/Vol] 115.2 mg/dL Normal [facility] Comment on above: Performed By: #### U NEO, LIPID #### [facility] [address] [address] [address] James Crowley Cholesterol.total/Cho lesterol in HDL [Mass ratio] 3.7 {ratio} Normal [facility] Comment on above: Performed By: #### U NEO, LIPID #### [facility] [address] [address] [address] James Crowley HDL NORMAL > or = 60 mg/dl - LOW CARDIOVASCULAR RISK <40 mg/dl - HIGH CARDIOVASCULAR RISK Normal [facility] Comment on above: Performed By: #### U NEO, LIPID #### [facility] [address] [address] [address] James Crowley LDL CALC NORMAL SEE BELOW Normal [facility] Comment on above: Result Comment: <100 mg/dl OPTIMAL 100 - 129 mg/dl NEAR OR ABOVE OPTIMAL 130 - 159 mg/dl BORDERLINE HIGH 160 - 189 mg/dl HIGH >190 mg/dl VERY HIGH Performed By: #### U NEO, LIPID #### [facility] [address] [address] [address] James Crowley Triglyceride [Mass/Vol] 169 mg/dL Critically high <=150 [facility] [facility] Comment on above: Performed By: #### U NEO, LIPID #### [facility] [address] [address] [address] James Crowley VLDL CALC 33.8 mg/dL Normal [facility] Comment on above: Performed By: #### U NEO, LIPID #### [facility] [address] [address] [address] James Crowley PROF 14(COMP METB)on 023 Albumin [Mass/Vol] 3.7 g/dL Normal 3.4-5.0 [facility] Comment on above: Performed By: #### U NEO, LIPID #### [facility] [address] [address] [address] James Crowley Albumin/Globulin [Mass ratio] 0.9 {ratio} Normal [facility] Comment on above: Performed By: #### U NEO, LIPID #### [facility] [address] [address] [address] James Crowley ALP [Catalytic activity/Vol] 86 U/L Normal 46-116 [facility] Comment on above: Performed By: #### U NEO, LIPID #### [facility] [address] [address] [address] James Crowley ALT [Catalytic activity/Vol] 33 U/L Normal 16-63 [facility] Comment on above: Performed By: #### U NEO, LIPID #### [facility] [address] [address] [address] James Crowley Anion gap [Moles/Vol] 14.8 mmol/L Normal [facility] Comment on above: Performed By: #### U NEO, LIPID #### [facility] [address] [address] [address] James Crowley AST [Catalytic activity/Vol] 16 U/L Normal 15-37 [facility] Comment on above: Performed By: #### U NEO, LIPID #### [facility] [address] [address] [address] James Crowley Bilirubin [Mass/Vol] 0.7 mg/dL Normal 0.2-1.0 [facility] Comment on above: Performed By: #### U NEO, LIPID #### [facility] [address] [address] [address] James Crowley Calcium [Mass/Vol] 9.1 mg/dL Normal 8.5-10.1 [facility] Comment on above: Performed By: #### U NEO, LIPID #### [facility] [address] [place] [address] Dr. James Crowley Chloride [Moles/Vol] 107 mmol/L Normal 98-107 [facility] Comment on above: Performed By: #### U NEO, LIPID #### [facility] [address] [address] [address] James Crowley CO2 [Moles/Vol] 28.0 mmol/L Normal 21.0-32.0 [facility] [place] Comment on above: Performed By: #### U NEO, LIPID #### [facility] [address] [place] [address] Dr. James Crowley Creatinine [Mass/Vol] 1.10 mg/dL Normal 0.70-1.30 [facility] Comment on above: Performed By: #### U NEO, LIPID #### [facility] [address] [address] [address] James Crowley EGFR-AF MEXICAN >60 Normal >=60 [facility] Comment on above: Performed By: #### U NEO, LIPID #### [facility] [address] [address] [address] James Crowley EGFR-NON AF MEXICAN >60 Normal >=60 [facility] Comment on above: Performed By: #### U NEO, LIPID #### [facility] [address] [place] [address] Dr. James Crowley Globulin (S) [Mass/Vol] 3.9 g/dL Normal [facility] Comment on above: Performed By: #### U NEO, LIPID #### [facility] [address] [place] [address] Dr. James Crowley Glucose [Mass/Vol] 98 mg/dL Normal 74-106 [facility] Comment on above: Performed By: #### U NEO, LIPID #### [facility] [address] [place] [address] Dr. James Crowley Potassium [Moles/Vol] 3.8 mmol/L Normal 3.5-5.1 [facility] Comment on above: Performed By: #### U NEO, LIPID #### [facility] [address] [address] [address] James Crowley Protein [Mass/Vol] 7.6 g/dL Normal 6.4-8.2 [facility] Comment on above: Performed By: #### U NEO, LIPID #### [facility] [address] [place] [address] Dr. James Crowley Sodium [Moles/Vol] 146 mmol/L Critically high 136-145 [facility] Comment on above: Performed By: #### U NEO, LIPID #### [facility] [address] [place] [address] Dr. James Crowley Urea nitrogen [Mass/Vol] 18.0 mg/dL Normal 7.0-18.0 [facility] Comment on above: Performed By: #### U NEO, LIPID #### [facility] [address] [address] [address] James Crowley Urea nitrogen/Creatinine [Mass ratio] 16.4 mg/mg Normal [facility] Comment on above: Performed By: #### U NEO, LIPID #### [facility] [address] [address] [address] James Crowley URIC ACID SERUMon 04-08-2023 Urate [Mass/Vol] 6.7 mg/dL Normal 3.5-7.2 [facility] [place] Comment on above: Performed By: #### U NEO, LIPID #### [facility] [address] [address] [address] James Crowley Patient Educationon 02-08-20 Patient Education Oncology Cancer Screening for Men A cancer screening is a test or exam that checks for cancer. Your health care provider will recommend specific cancer screenings based on your age, personal history, and family history of cancer. Work with your health care provider to create a cancer screening schedule that protects your health. Why is cancer screening done? Cancer screening is done to look for cancer in the very early stages, before it spreads and becomes harder to treat and before you would start to notice symptoms. Finding cancer early improves the chances of successful treatment. It may save your life. Who should be screened for cancer? All men should be screened for colorectal cancer and skin cancer. Your health care provider may recommend screenings for other types of cancer if: ? You had cancer before. ? You have a family member with cancer. ? You have abnormal genes that could increase the risk of cancer. ? You have risk factors for certain cancers, such as smoking. When you should be screened for cancer depends on: ? Your age. ? Your medical history and your family's medical history. ? Certain lifestyle factors, such as smoking. ? Environmental exposure, such as to asbestos. What are some common cancer screenings? Lung cancer Lung cancer screening is done with a CT scan that looks for abnormal cells in the lungs. Discuss lung cancer screening with your health care provider if you are 55?74 years old and if any of the following apply to you: ? You currently smoke. ? You used to smoke heavily. ? You have a smoking history of 1 pack a day for 30 years or 2 packs a day for 15 years. ? You have quit smoking within the past 15 years. If you smoke heavily or if you used to smoke, you may need to be screened every year. Prostate cancer Prostate cancer screening is done with blood tests and an exam in which a health care provider uses a gloved finger to check prostate size (digital rectal exam). You may need to be screened for prostate cancer if: ? You have risk factors of prostate cancer, such as being or having a close family member with prostate cancer. ? You have inherited gene changes or a genetic condition, including BRCA1 or BRCA2 gene mutations or Goss syndrome. ? You have symptoms of prostate cancer, such as problems urinating or erectile dysfunction. Prostate cancer screening for men with average risk may start at age 50. Men with risk factors may need to be screened earlier at age 40?45. Once you have been screened for prostate cancer, future screening may be recommended based on the results of your blood tests. Colorectal cancer All adults should have screening for colorectal cancer starting at age 50 and continuing until age 75. Your health care provider may recommend screening at age 45. You will have tests every 1?10 years, depending on your results and the type of screening test. If you have a family history of colon or rectal cancer or other risk factors, you may need to start having screenings earlier. Talk with your health care provider about which screening test is right for you and how often you should be screened. Colorectal cancer screening looks for cancer or for growths called polyps that often form before cancer starts. Tests to look for cancer or polyps include: ? Colonoscopy or flexible sigmoidoscopy. For these procedures, a flexible tube with a small camera is inserted into the rectum. ? CT colonography. This test uses X-rays and a contrast dye to check the colon for polyps. If a polyp is found, you may need to have a colonoscopy so the polyp can be located and removed. Tests to look for cancer in the stool (feces) include: ? Guaiac-based fecal occult blood test (FOBT). This test detects blood in stool. It can be done at home with a kit. ? Fecal immunochemical test (FIT). This test detects blood in stool. For this test, you will need to collect stool samples at home. ? Stool DNA test. This test looks for blood in stool and any changes in DNA that can lead to colon cancer. For this test, you will need to collect a stool sample at home and send it to a lab. Skin cancer Skin cancer screening is done by checking the skin for unusual moles or spots and any changes in existing moles. Your health care provider should check your skin for signs of skin cancer at every physical exam. You should check your skin every month and tell your health care provider right away if anything looks unusual. Men with a xpytba-boki-uykjog risk for skin cancer may want to see a neuroscience specialist (bar assistant) for an annual body check. Where to find more information ? National Cancer [place]: https://www.cancer.g ov/about-cancer/scre ening ? Centers for Disease Control and Prevention: https://www.cdc.gov/ cancer/dcpc/preventi on/screening.htm ? [employer]: https://www.cancer.o rg/latest-news/4-can lzz-wigypmwlg-jsbnn- for-men.html Contact a health care (more content not included)... Normal [facility] Urology Office/Clinic Noteon 02-07-2023 Urology Office/Clinic Note Chief Complaint PO HPI Staff PO excision of 2cm scrotal cyst done 01/25/23, review pathology report. Previous DX: PSA screening, scrotal cyst, sebaceous cyst. Dysuria: denies pain or burning Incomplete bladder emptying: denies Hematuria: denies visible blood Frequency: denies Urgency: denies Nocturia: 1x a night Stream: denies hesitancy, denies weak stream Leaking: denies Post void dripping: denies Wearing pads/ Depends: denies Urge incontinence: denies Stress incontinence: denies Incontinence without Sensory Awareness: denies Abdominal pain: denies Flank pain: denies Sexual complaints: denies History of Present Illness Tests reviewed: reviewed UA, pathology. I have reviewed the previous health record information and history for this patient from Dr. Valdez. I have reviewed and verified the staff HPI to be accurate for this encounter. There have been no associated fever, chills, flank pain, or blood in the urine. Denies any urinary infections since last encounter. Review of Systems PHQ Score Initial Depression Screen Score: 0 ROS - Provider Constitutional: denies weight loss, denies hot flashes. Eyes: denies eye problems. Gastrointestinal: denies nausea, denies vomiting. Cardiovascular: denies chest pain or angina. Integumentary: no dryness Musculoskeletal: denies musculoskeletal symptoms. ENMT: denies otolaryngeal symptoms. Respiratory: no shortness of breath. Heme/Lymph: denies easy bleeding tendency, denies easy bruising tendency. Psychiatric: no confusion, no anxiety. Genitourinary: See HPI. Physical Exam Vitals & Measurements HR: 74(Peripheral) BP: 138/77 HT: 69 in HT: 175.0 cm WT: 64 kg WT: 140.8 lb BMI: 20.9 General Appearance: alert, no distress, well nourished, well developed male. Genitourinary: normal scrotum, normal testes, normal urethra, normal epididymis, normal vas deferens/spermatic cord. Flank Pain: none. Bladder: nonpalpable. Assessment/Plan PCP monitors PSA. 1. Sebaceous cyst (L72.3: Sebaceous cyst) S/p excision of hemiscrotal 2 cm scrotal cyst 01/25/23. Path shows epidermal inclusion cyst. UA today negative for blood and infection. Path reviewed with pt, benign. Denies any urinary habit complaints or complications PO. PE: stitch reaction. Follow up PRN. Pt understands and agrees with plan. Follow-up With When Contact Information DIONY CHANDLER, Pino Reina, URL [facility] [address] [place] [address]- Additional Instructions: PRN Patient Education Cancer Screening for Men IRadha, personally scribed for Dr. Valdez on 02/07/2023 12:59:37. . Documentation recorded by the scribe, Radha Nobles, accurately reflects the services(s) I performed and decisions made by me. Authenticated by Dr. Valdez on 02/07/2023 13:05:29. Problem List/Past Medical History Ongoing Arthritis Chronic GERD Chronic hypoxemic respiratory failure Gout Lobular atelectasis Neuropathy Screening PSA (prostate specific antigen) Scrotal cyst Sebaceous cyst Historical No qualifying data Procedure/Surgical History Arthroplasty of the hip, Colonoscopy, Procedure on foot. Medications aspirin, 81 mg, Oral, Daily budesonide-formotero l 160 mcg-4.5 mcg/inh Inh Aer w/adapter, 2 puff(s), Inhalation, BID Daliresp 500 mcg oral tablet, 500 mcg= 1 tab(s), Oral, Daily Dilt-XR 180 mg/24 hours oral capsule, extended release, 180 mg= 1 cap(s), Oral, Daily Protonix, unknown dose, Oral, Daily Spiriva Respimat 60 ACT 2.5 mcg/inh inhalation aerosol, one puff, Inhalation, Daily Tessalon Perles, Oral, q12hr, PRN Ventolin HFA 90 mcg/inh Aerosol-Adpt, 1 puff(s), Inhalation, q4hr, PRN Allergies No Known Medication Allergies Social History Tobacco Former smoker, quit more than 30 days ago Tobacco Use:. Never Smokeless Tobacco Use:. Cigarettes, 02/07/2023 Family History Alcoholism: Father. Emphysema: Father. Immunizations Vaccine Date Status SARS-CoV-2 (COVID-19) mRNAMUL.[id number] 09/25/2022 Recorded SARS-CoV-2 (COVID-19) mRNA BNT-162b2 vax 05/26/2021 Recorded SARS-CoV-2 (COVID-19) mRNA BNT-162b2 vax 05/05/2021 Recorded diphtheria/pertussis , acel/tetanus adult 03/11/2021 Recorded Lab Results Ambulatory Point of Care Results Bilirubin Urine Dipstick: 1+ Small (02/07/23 12:43:00) Blood Urine Dipstick: Negative (02/07/23 12:43:00) Glucose Urine Dipstick: Negative (02/07/23 12:43:00) Ketones Urine Dipstick: Negative (02/07/23 12:43:00) Leukocytes Urine Dipstick: Negative (02/07/23 12:43:00) Nitrite Urine Dipstick: Negative (02/07/23 12:43:00) Protein Urine Dipstick: Negative (02/07/23 12:43:00) Specific [place] Urine Dipstick: 1.010 (02/07/23 12:43:00) Urine Appearance Urine Dipstick: Clear (02/07/23 12:43:00) Urine Color Urine Dipstick: Light yellow (02/07/23 12:43:00) Urobilinogen Urine Dipstick: Normal 0.2-1 EU/dl (02/07/23 12:43:00) pH Uri (more content not included)... Normal [facility] Comment on above: Result Comment: Elec tronically Signed By: Pino VALDEZ MD\.br\Date and Time Signed: 02/07/23 13:05 EDT\.br\Electronically Co-Signed By: Radha Nobles\.br\Date and Time Co-Signed: 02/07/23 13:00 EDT Consent for Procedure/Surger yon 01-25-2023 Consent for Procedure/Surgery [id number] 8#1.00CD:127 [facility] Consent for Treatmenton - Consent for Treatment [id number] #1.00CD:127 [facility] IntraOperative Documentson 0 01-25-2023 IntraOperative Documents [id number] 3#1.00CD:127 [facility] Main OR Intraoperative Recor don 01-25-2023 Main OR Intraoperative Record IntraOp Document Type FTURO Summary Primary Physician: Pino VALDEZ MD Finalized Date/Time: 01/25/23 14:02:36 Pt. Name: MATEO STEARNS/Sex: 1960 Male Med Rec #: [id number] Physician: Pino VALDEZ MD Financial #: [id number] Pt. Type: O Room/Bed: / Admit/Disch: 01/25/23 12:39:00 - Institution: Case Times FTURO Entry 1 Patient Times In Room 01/25/23 13:35:00 Out Room 01/25/23 14:06:00 Procedure Times Start 01/25/23 13:40:00 Stop 01/25/23 14:01:00 Anesthesia Times Last Modified By: Jigar RN, Kinjal NINO 01/25/23 14:01:59 Case Attendance FTURO Entry 1 Entry 2 Entry 3 Case Attendee DIONY CHANDLER, Pino Kimball RN, CNOR, Oswaldo MORENO, Diana Layton Role Performed Surgeon - Primary Talent Advisor - Primary Scrub - Primary Time In 01/25/23 13:35:00 01/25/23 13:35:00 01/25/23 13:35:00 Time Out 01/25/23 14:06:00 01/25/23 14:06:00 01/25/23 14:06:00 Procedure SCROTAL/PERINEAL SCROTAL/PERINEAL SCROTAL/PERINEAL ABSCESS IandD(.) ABSCESS IandD(.) ABSCESS IandD(.) Comments Last Modified By: Jigar RN, CNOR, Jigar RN, CNOR, Jigar MCLEAN, BRADLEYOR, Kinjal 01/25/23 Kinjal 01/25/23 Kinjal 01/25/23 14:02:00 14:02:00 14:02:00 Surgical Procedures FTURO Entry 1 Procedure Description Procedure SCROTAL/PERINEAL Modifiers . ABSCESS IandD Surgeon Description EXCISION OF SCROTAL CYST Primary Procedure Yes Primary Surgeon DIONY CHANDLER, Pino Reina Start 01/25/23 13:40:00 Stop 01/25/23 14:01:00 Anesthesia Type Local Surgical Service Urology Wound Class 4 - Dirty Last Modified By: Jigar MCLEAN, Kinjal NINO 01/25/23 14:02:03 General Case Data FTURO Pre-Care Text: Classifies surgical wound, implements aseptic technique, initiates traffic control Entry 1 Case Information OR URO 1 FT Case Level None Wound Class 4 - Dirty Specialty Urology Preop Diagnosis SCROTAL CYST Postop Same As Preop Yes Postop Diagnosis SCROTAL CYST Outcomes Met? Yes Last Modified By: Jigar MCLEAN, MICA, Kinjal 01/25/23 13:50:35 Post-Care Text: The patient is free from signs and symptoms of infection EU IntraOp - FTURO Pre-Care Text: Implements protective measures prior to operative or invasive procedure, confirms identity before the operative or invasive procedure, verifies operative procedure, surgical site, and laterality Entry 1 EU Perioperative Protocols Procedure(s) SCROTAL/PERINEAL Patient Identity Birthday, Patient ABSCESS IandD(.) Verified (select at Participation least 2): Consents / H and P HandP, Surgery/Procedure Operative Site N/A Verified Consent Marking Verified Surgical Site Yes Laterality Verified n/a Verified Procedure Verified Yes Availability Equipment, Medication Verified (If Applicable) Time Out Pino VALDEZ MD, Time Out Complete 01/25/23 13:34:00 Participants MICA Kimball RN, Ruthann, McClain CST, Kimberly A Allergies Reviewed? Yes Allergies Reviewed Self/Patient With Body Position Supine Prep Area scrotum Prep Agents Betadine Solution Skin. Condition Unable to Visualize Additional Tissue Specimens Collected Vitals - EU Blood Pressure 146/95 Pulse 107 bpm Respirations SPO2 EBL 0 IandO - EU Total Intake 0 mL Total Output 0 mL Outcomes Met? Yes Last Modified By: MICA Kimball RN, Ruthann 01/25/23 13:52:45 Post-Care Text: The patient is free from signs and symptoms of injury caused by extraneous objects Sign Out FTURO Entry 1 Before Patient Leaves OR Nurse verbally Yes Nurse verbally Yes confirms with the confirms with the team the name of team that the procedure(s) instrument, sponge, recorded and needle counts are correct (or N/A) Nurse verbally Yes Nurse verbally Yes confirms with the confirms with the team how the team whether there specimen is labeled are any equipment (including patient problems to be name), if applicable addressed Sign Out Complete 01/25/23 14:04:00 Last Modified By: MICA Kimball RN, Ruthann 01/25/23 14:02:35 Case Comments Finalized By: MICA Kimball RN, Ruthann Document Signatures Signed By: MICA Kimball RN, Ruthann 01/25/23 14:02 Normal [facility] Main OR Preoperative Recordo n 01-25-2023 Main OR Preoperative Record Holding Area Document Type FTURO Summary Primary Physician: Pino VALDEZ MD Finalized Date/Time: 01/25/23 13:41:59 Pt. Name: MATEO STEARNS/Sex: 1960 Male Med Rec #: [id number] Physician: Pino VALDEZ MD Financial #: [id number] Pt. Type: O Room/Bed: / Admit/Disch: 01/25/23 12:39:00 - Institution: Case Times Holding FTURO Pre-Care Text: Verifies consent for planned procedure, identifies individual values and wishes concerning care, includes family members in perioperative teaching Secures patient's records' belongings, and valuables, maintains patient's dignity and privacy, and maintains patient confidentiality Entry 1 In Holding 01/25/23 12:59:00 Outcomes Met? Yes Last Modified By: Domonique Mcleod LPN 01/25/23 12:59:09 Post-Care Text: The patient participates in decisions affecting his or her perioperative plan of care The patient's right to privacy is maintained Surgery Checklist FTURO Entry 1 Patient Birthday, Patient Procedure History and Physical, Identification: Participation Verification: Surgical Consent, With Patient NPO after Midnight: No Date/Time: 01/25/23 12:59:00 Personal Items: Glasses Personal Items clothes Comment: Limitations: na Complaints of Pain: No Pain Comment: na Skin Integrity Intact, [place], Warm, & Dry Vitals - EU Blood Pressure 146/95 Pulse 107 bpm Respirations 18 br/min SPO2 91 % RN Reviewed Yes Last Modified By: MICA Kimball RN, Ruthann 01/25/23 13:41:58 General Comments: temp:36.7 Finalized By: MICA Kimball RN, Ruthann Document Signatures Signed By: Domonique Mcleod LPN 01/25/23 13:01 MICA Kimball RN, Ruthann 01/25/23 13:42 Normal [facility] Operative Reporton Operative Report Patient: MATEO STEARNS Age: 62 years Sex: Male : 1960 Associated Diagnoses: None Author: Pino VALDEZ MD Procedure Operative Information Details: Date/ Time: 01/25/2023 14:10:00. Pre-Op Dx: Condyloma - A63.0, Large scrotal cyst. Post-Op Dx: Scrotal cyst was excised. Anesthesia Type: Local. Procedure: Local Excision of Penile Condyloma, Local excision of a large scrotal cyst. Complications: None. Risks/Benefits/Infor med Consent: Surgical risks, benefits, details of the procedure have been explained to the patient, Full informed consent has been obtained. Intraoperative Information Prepped: The patient was brought to the procedure room, The patient was placed on the table in the supine position, The areas were prepped with Betadine. Anesthesia: The lesions were then anesthetized with infiltrated xylocaine by creating a wheal in the skin underneath them. Procedure: I then used a forceps and a scalpel and excised the lesions, The Bovie was used to coagulate, I then used a 4-0 Vicryl in an interrupted fashion to close the defect, Sterile dressing was applied. Devices Implanted: None. Postoperative Information Discharge: Patient tolerated the procedure well, Follow up will be in a week to remove the sutures. Normal [facility] Comment on above: Result Comment: Elec tronically Signed By: DIONY CHANDLER, Pino Bynum.br\Date and Time Signed: 01/25/23 14:11 EST Patient Educationon 01-25-20 Patient Education Custom Excision Penile Condyloma ? After excision may feel some minor discomfort over the treated areas, sometimes described as a stinging feeling much like a minor burn. ? In the next day or so, small scabs will form. Do not attempt to remove these scabs. ? The following instructions must be followed closely: -If you need pain pills, start before pain becomes intense. Antibiotics and pain pills are frequently less upsetting to your stomach if you take them with food such as crackers or bread. -If you have excessive or persistent pain, swelling, bleeding, nausea, vomiting, difficulty voiding, or any problems, you should first call your surgeon for advice. If you are unable to contact your surgeon, seek help from a hospital emergency room. ? If you were given drugs to make you drowsy or pain medication follow these instructions: -You should spend the remainder of the day and evening resting -You should not attempt to walk, including going to the bathroom without assistance. You may be lightheaded from the medication you received. -Eat light today to avoid nausea. You should be able to return to your normal diet 24 to 36 hours after your procedure. -For the next 24 hours, do not consume alcohol, attempt to drive, use power tools, sign important documents or make important decisions. After that only do so if you feel perfectly normal and alert. -Follow carefully and verbal or written instructions your surgeon may give you. ? Surgeons written instructions with a copy given to patient: -No sex for 2 weeks -You may shower the next day after your procedure. -Take the pain medication and antibiotics as directed Normal [facility] CT CHEST WO CONon 01-04-2023 CT CHEST WO CON EXAMINATION: CT CHEST WO CON HISTORY: Lung field abnormal ; follow-up right upper lobe mass COMPARISON: CT chest 10/07/2022, 08/18/2022 TECHNIQUE: Axial, Coronal, and Sagittal images were created without the administration of IV contrast material. Dose reduction techniques were achieved by using automated exposure control and/or adjustment of mA and/or kV according to patient size and/or use of iterative reconstruction technique. FINDINGS: LUNGS: 2.6 x 1.6 x 1.2 cm new spiculated opacity within anterior lateral right lower lobe adjacent the chest wall. Stable small spiculated opacities scattered within the right upper lobe. Stable, chronic collapse of right middle lobe of uncertain etiology. Marked emphysematous changes throughout the lungs. PLEURA: No mass, effusion, or pneumothorax. VASCULATURE: No abnormality. AYLA: No mass or adenopathy. MEDIASTINUM: No mass or adenopathy. CARDIAC: No enlargement or pericardial thickening. AORTA: No aneurysm or dissection. CHEST WALL: No mass or axillary adenopathy. BONES: No bone lesion or fracture. LIMITED ABDOMEN: No suspicious findings. Limited images of the upper abdomen. OTHER: Negative. IMPRESSION: 1. Interval development of a 2.6 cm spiculated opacity within anterior lateral right lung base; new infectious infiltrates are most likely. Follow-up CT chest without contrast in 3 months to document stability or clearing is needed to exclude malignancy. 2. Stable small spiculated opacities scattered within right upper lobe favoring chronic scarring. 3. Marked emphysematous changes. Electronically authenticated by: LEONOR MA Date: 2023-01-04 10:[address] [facility] [address] CHEST WO CONon 10-07-2022 CT CHEST WO CON EXAMINATION: CT CHEST WO CON HISTORY: Lung field abnormal ; follow-up pulmonary nodules COMPARISON: CT chest 08/18/2022, 04/09/2022 TECHNIQUE: Axial, Coronal, and Sagittal images were created without the administration of IV contrast material. Dose reduction techniques were achieved by using automated exposure control and/or adjustment of mA and/or kV according to patient size and/or use of iterative reconstruction technique. FINDINGS: LUNGS: Spiculated nodular opacities with some stranding within the right upper and middle lobes; decreased in size since prior study. Area of consolidation versus passive atelectasis within medial middle lobe; stable to slightly decreased, with partially patent bronchi. Moderate emphysematous changes. PLEURA: No mass, effusion, or pneumothorax. VASCULATURE: No abnormality. AYLA: Calcified left hilar lymph nodes. No enlarged lymph nodes. MEDIASTINUM: Multiple calcified small lymph nodes. CARDIAC: No enlargement or pericardial thickening. AORTA: No aneurysm or dissection. CHEST WALL: No mass or axillary adenopathy. BONES: No bone lesion or fracture. LIMITED ABDOMEN: Small stone within gallbladder. Limited images of the upper abdomen. OTHER: Negative. IMPRESSION: 1. Interval decrease in size of the spiculated opacities within the right upper lobe and middle lobe which were new on the 08/18/2022 study. Findings favor resolving infectious infiltrate. Consider follow-up CT chest without contrast in 2-3 months to document complete clearing. 2. Chronic granulomatous disease. 3. Cholelithiasis. Electronically authenticated by: LEONOR MA Date: 2022-10-07 16:05 Normal [facility] ACID FAST SMEAR AND CXon Acid Fast Culture Negative Normal [facility] Comment on above: Result Comment: No a tomi fast bacilli isolated after 6 weeks. Performed By: #### U NEO, LIPID #### [facility] [address] [address] [address] James Crowley Acid Fast Smear Negative Normal [facility] Comment on above: Performed By: #### U NEO, LIPID #### [facility] [address] [address] [address] James Crowley [employer] Specimen Processing Concentration Normal [facility] Comment on above: Performed By: #### U NEO, LIPID #### [facility] [address] [address] [address] James Crowley FUNGAL AB QUANTITAIVE DOUBLE IMMUNODIFFUon 08-22-2022 Aspergillus flavus Negative Normal Neg:<1:1 [facility] Comment on above: Performed By: #### F UNGUYI #### [facility] [address] [address] [address] James Crowley Aspergillus fumigatus Negative Normal Neg:<1:1 [facility] Comment on above: Performed By: #### F UNGUYI #### [facility] [address] [address] [address] James Crowley Aspergillus niger Negative Normal Neg:<1:1 [facility] Comment on above: Performed By: #### F UNGUYI #### [facility] [address] [address] [address] James Crowley Blastomyces Negative Normal Neg:<1:1 [facility] Comment on above: Performed By: #### F UNGUYI #### [facility] [address] [address] [address] James Crowley [place] B VIRUS ANTIBODIES on 08-21-2022 [place] B-1 Ab Negative Normal Neg:<1:8 [facility] Comment on above: Performed By: #### C OXSBV #### [facility] [address] [place] [address] Dr. James Crowley [place] B-2 Ab Negative Normal Neg:<1:8 [facility] Comment on above: Performed By: #### C OXSBV #### [facility] [address] [address] [address] James Crowley coxsackie B-3 Ab Negative Normal Neg:<1:8 [facility] Comment on above: Performed By: #### C OXSBV #### [facility] [address] [place] [address] Dr. James Crowley [place] B-4 Ab Negative Normal Neg:<1:8 [facility] Comment on above: Performed By: #### C OXSBV #### [facility] [address] [address] [address] James Crowley [place] B-5 Ab Negative Normal Neg:<1:8 [facility] Comment on above: Performed By: #### C OXSBV #### [facility] [address] [address] [address] James Crowley [place] B-6 Ab Negative Normal Neg:<1:8 [facility] Comment on above: Performed By: #### C OXSBV #### [facility] [address] [address] [address] James Crowley HISTOPLASMA CAP AB QUANT DID on 08-21-2022 Histoplasma Mycelial CF Ab. Negative Normal Neg:<1:2 [facility] Comment on above: Performed By: #### H ISTGAL #### [facility] [address] [place] [address] Dr. James Crowley Histoplasma Yeast CF Ab Negative Normal Neg:<1:2 [facility] Comment on above: Performed By: #### H ISTGAL #### [facility] [address] [place] [address] Dr. James Crowley [place] A VIRUS AB IGMon 0 08-20-2022 [place] A16 IgM Negative Normal Neg:<1:10 [facility] Comment on above: Performed By: #### C OXSIGM #### [facility] [address] [place] [address] Dr. James Crowley [place] A24 IgM Negative Normal Neg:<1:10 [facility] Comment on above: Performed By: #### C OXSIGM #### [facility] [address] [place] [address] Dr. James Crowley [place] A7 IgM Negative Normal Neg:<1:10 [facility] [place] Comment on above: Performed By: #### C OXSIGM #### [facility] [address] [place] [address] Dr. James Crowley [place] A9 IgM Negative Normal Neg:<1:10 [facility] Comment on above: Performed By: #### C OXSIGM #### [facility] [address] [place] [address] Dr. James Crowley HISTOPLASMA GALACTOMANNAN AG URINEon 08-20-2022 Histoplasma Gal'shwetha Ag <0.5 Normal <0.5 ng/mL [facility] Comment on above: Performed By: #### H ISTGAL #### [facility] [address] [place] [address] Dr. James Crowley QUANTIFERON TB GOLD PLUSon 0 08-20-2022 QuantiFERON Criteria Comment Normal [facility] Comment on above: Result Comment: Vick tiFERON-TB Gold Plus is a qualitative indirect test for M tuberculosis infection (including disease) and is intended for use in conjunction with risk assessment, radiography, and other medical and diagnostic evaluations. The QuantiFERON-TB Gold Plus result is determined by subtracting the Nil value from either TB antigen (Ag) value. The Mitogen tube serves as a control for the test. Performed By: #### Q NTTB #### [facility] [address] [place] [address] Dr. James Crowley QuantiFERON Incubation Incubation performed. Normal [facility] Comment on above: Performed By: #### Q NTTB #### [facility] [address] [place] [address] Dr. James Crowley QuantiFERON Mitogen Value >10.00 Normal [facility] Comment on above: Performed By: #### Q NTTB #### [facility] [address] [place] [address] Dr. James Crowley QuantiFERON Nil Value 0.04 IU/mL Normal [facility] Comment on above: Performed By: #### Q NTTB #### [facility] [address] [place] [address] Dr. James Crowley QuantiFERON TB1 Ag Value 0.04 IU/mL Normal [facility] Comment on above: Performed By: #### Q NTTB #### [facility] [address] [place] [address] Dr. James Crowley QuantiFERON TB2 Ag Value 0.05 IU/mL Normal [facility] Comment on above: Performed By: #### Q NTTB #### [facility] [address] [place] [address] Dr. James Crowley QuantiFERON-TB Gold Plus Negative Normal Negative [facility] Comment on above: Result Comment: No r esponse to M tuberculosis antigens detected. Infection with M tuberculosis is unlikely, but high risk individuals should be considered for additional testing (ATS/IDSA/CDC Clinical Practice Guidelines, 2017). The reference range is an Antigen minus Nil result of <0.35 IU/mL. Chemiluminescence immunoassay methodology Performed By: #### Q NTTB #### [facility] [address], [place] [address] Dr. James Crowley CREATININEon 08-18-2022 Creatinine [Mass/Vol] 0.97 mg/dL Normal 0.70-1.30 [facility] Comment on above: Performed By: #### H ISTGAL #### [facility] [address] [address] [address] James Crowley EGFR-AF MEXICAN >60 Normal >=60 [facility] [place] Comment on above: Performed By: #### H ISTGAL #### [facility] [address], [place] [address] Dr. James Crowley EGFR-NON AF MEXICAN >60 Normal >=60 [facility] Comment on above: Performed By: #### H ISTGAL #### [facility] [address] [address] [address] CHEST W CONon 08-18-2022 CT CHEST W CON EXAMINATION: CT CHEST W CON HISTORY: Imaging result abnormal ; right chest pain, acute cough, bloody sputum COMPARISON: CT chest 08/10/2022 TECHNIQUE: Multi-planar CT images were created with IV contrast. Axial, Coronal, and Sagittal images. Dose reduction techniques were achieved by using automated exposure control and/or adjustment of mA and/or kV according to patient size and/or use of iterative reconstruction technique. FINDINGS: LUNGS: Multiple new spiculated opacities scattered within right lung, largest is within lateral aspect of right upper lobe posterior segment, 3.6 x 2.2 x 1.2 cm. Stable, chronic atelectatic collapse versus consolidation of right middle lobe. Small, new patchy opacity within posterior left lung base. PLEURA: No mass, effusion, or pneumothorax. VASCULATURE: No abnormality. AYLA: Calcified lymph nodes. MEDIASTINUM: Calcified lymph nodes suggestive of chronic granulomatous disease. CARDIAC: No enlargement, pericardial thickening, or significant calcification. AORTA: No aneurysm or dissection. CHEST WALL: No mass or axillary adenopathy. BONES: No bone lesion or fracture. LIMITED ABDOMEN: No suspicious findings Limited images of the upper abdomen. OTHER: Negative. IMPRESSION: 1. Multiple new spiculated masses versus infectious infiltrate, predominantly involving the right lung. Findings are new since 04/09/2022. 2. Stable complete collapse of right middle lobe of uncertain etiology. Electronically authenticated by: LEONOR MA Date: 2022-08-18 10:27 Normal [facility] CULTURE SPUTUMon 08-18-2022 CULTURE SPUTUM Isolate 1 Haemophilus parainfluenzae Moderate growth of Normal [facility] Comment on above: Result Comment: Beta -Lactamase: Negative Performed By: #### H ISTGAL #### [facility] [address] [address] [address] James Crowley SPUTUM GRAM STAINon 08-18-20 22 COMMENTS Normal [facility] Comment on above: Performed By: #### H ISTGAL #### [facility] [address] [address] [address] James Crowley DIPHTHEROIDS Normal [facility] Comment on above: Performed By: #### H ISTGAL #### [facility] [address] [address] [address] James Crowley EPITHELIALS <25 Normal [facility] Comment on above: Performed By: #### H ISTGAL #### [facility] [address] [address] [address] James Crowley FUNGAL ELEMENTS Normal [facility] Comment on above: Performed By: #### H ISTGAL #### [facility] [address] [address] [address] James Crowley GRAM NEG BACILLI Normal [facility] Comment on above: Performed By: #### H ISTGAL #### [facility] [address] [address] [address] James KAN NEG DIPPLOCOCCI FEW Normal [facility] Comment on above: Performed By: #### H ISTGAL #### [facility] [address] [address] [address] James Crowley GRAM POS BACILLI Normal [facility] Comment on above: Performed By: #### H ISTGAL #### [facility] [address] [address] [address] James Crowley GRAM POSITIVE COCCI FEW Normal [facility] Comment on above: Performed By: #### H ISTGAL #### [facility] [address], [place] [address] Dr. James Crowley WBC (Bld) [#/Vol] 10*3/uL Normal [facility] Comment on above: Performed By: #### H ISTGAL #### [facility] [address], [place] [address] Dr. James Crowley XR RIBS RT PA Jmaes 2 XR RIBS RT PA CH EXAMINATION: XR RIBS RT PA CH HISTORY: Rib pain COMPARISON: 02/22/2022, 04/09/2022 FINDINGS: LUNGS: Focal density identified in the right midlung significantly increased from the prior exam PLEURA: No pneumothorax, effusion, or pleural thickening. MEDIASTINUM: Soft tissue fullness inferior right hilum CARDIAC: No cardiomegaly or cardiac silhouette abnormality. RIBS: No acute rib fracture OTHER: Negative. IMPRESSION: Increase in focal density in the right midlung. Malignancy should be considered. CT follow-up with contrast is recommended Electronically authenticated by: OK CISNEROS Date: 2022-08-12 13:02 Normal [facility] Covid-19 PCR (CVDTB)on SARS-CoV-2 (COVID-19) RNA SOURAV+probe Ql (Unsp spec) Not detected Normal NOT DETECTED [facility] Comment on above: Result Comment: When diagnostic testing is negative, the possibility of a false negative should be considered in the context of a patient's recent exposures and the presence of clinical signs and symptoms consistent with SARS-CoV-2. This test is not yet approved or cleared by the [place] FDA. When there are no FDA-approved or cleared tests available, and other criteria are met, FDA can make tests available under an emergency access mechanism called an Emergency Use Authorization (EUA). The EUA for this test is supported by the Test Evaluator of Health and Human Service's declaration that circumstances exist to justify the emergency use of in vitro diagnostics for the detection and/or diagnosis of the virus that causes COVID-19. This EUA will remain in effect for the duration of the COVID-19 declaration justifying emergency of IVDs, unless it is terminated or revoked by the FDA (after which the test may no longer be used). Performed By: #### C VDTBH #### [address] [address] [address] James Rey 03-24-2021 L Specimen: [id number] Received: 03/24/21 Status: [place] Barnesalisa Num: [id number] Spec Type: Surgical Subm Dr: Bryan Quick MD Tissues: A Skin-Other than Cyst, tag, debridement or plastic repair (LT NASAL DORSUM) Procedures: HE Stain, Gross/Micro L4 Patient Age/Sex Location Account Attending Physician Mateo Stearns/Oj CÁRDENAS [id number] Bryan Quick MD SPEC NUM: RECD: 03/24/21 STATUS: [place] MATHEWS NUM: [id number] FRANCISCA: 03/24/21 [facility] DR: Bryan Quick MD ENTERED: 03/24/[address] [facility] [address]: SPEC TYPE: Surgical DEPT: S ORDERED: HE Stain, Gross/Micro L4 ORDERED: HE Stain, Gross/Micro L4 Pathological Diagnosis Skin, left nasal dorsum, biopsy: - Actinic keratosis and solar elastosis - Epidermal inclusion cyst Clinical Information Mass increasing in size primary biopsy Gross Description Received in formalin labeled with the patient's name, number and left nasal dorsum are 2 rivera-pink to red, ragged tissue fragments that measure 1.2 cm and 1.4 cm. The resection margin is indeterminate. Entirely submitted in one cassette labeled A1. (SM/JS) Microscopic Description One glass slide with H E stained material has been examined. The microscopic findings support the above pathologic diagnosis. [id number] Specimen: Received: 03/24/21 Status: [place] Barnesalisa Num: [id number] Spec Type: Surgical Subm Dr: Bryan Quick MD Tissues: A Skin-Other than Cyst, tag, debridement or plastic repair (LT NASAL DORSUM) Procedures: HE Stain, Gross/Micro L4 Patient: Mateo Stearns [id number] (Continued) Signed (signature on file) Cindy Garcia MD 03/25/21 1824 [facility] Vital Signs Date Time Vital Sign Value Performing Clinician Dom jesus 06-06-2023 10:36-0400 Blood Pressure Location Pino VALDEZ [facility] 06-06-2023 10:36-0400 Diastolic blood pressure 76 mm[Hg] Pino VALDEZ [facility] 06-06-2023 10:36-0400 Heart rate 72 /min Pino VALDEZ [facility] 06-06-2023 10:36-0400 Respiratory rate 16 /min Pino VALDEZ [facility] 06-06-2023 10:36-0400 Systolic blood pressure 130 mm[Hg] Pino VALDEZ [facility] 02-07-2023 12:42-0400 Blood Pressure Location Pino VALDEZ [facility] 02-07-2023 12:42-0400 Diastolic blood pressure 77 mm[Hg] Pino VALDEZ [facility] 02-07-2023 12:42-0400 Heart rate 74 /min Pino VALDEZ [facility] 02-07-2023 12:42-0400 Systolic blood pressure 138 mm[Hg] Pino VALDEZ [facility] 05-17-2022 12:56-0400 Blood Pressure Location Pino VALDEZ [facility] 05-17-2022 12:56-0400 Diastolic blood pressure 87 mm[Hg] Pino VALDEZ [facility] 05-17-2022 12:56-0400 Heart rate 79 /min Pino VALDEZ [facility] 05-17-2022 12:56-0400 Respiratory rate 16 /min Pino VALDEZ [facility] 05-17-2022 12:56-0400 Systolic blood pressure 139 mm[Hg] Pino VALDEZ [facility] Encounters Encounter Date Encounter Type Care Provider Facility Start: 01-02-2024 ambulatory Pino Omalleyi ty:[facility] Start: 07-22-2023 ambulatory Pino Omalleyi ty:[facility] Start: 06-06-2023 End: 06-07-2023 ambulatory Pnio VALDEZ Facility:[facility] Start: 06-06-2023 End: 06-06-2023 Patient encounter procedure [facility] Start: 05-17-2023 End: 05-18-2023 ambulatory Pino VALDEZ Facility[facility] Start: 05-17-2023 End: 05-17-2023 Patient encounter procedure Pino VALDEZ [facility] Start: 04-12-2023 End: 04-13-2023 ambulatory [facility] TANYA AICHMACIEL Facility:[facility] Start: 04-08-2023 End: 04-09-2023 ambulatory [facility] PHYSICIAN TANYA AICJERICHOZ Facility:[facility] Start: 02-07-2023 End: 02-08-2023 ambulatory Pino VALDEZ Facility:[facility] Start: 02-07-2023 End: 02-07-2023 Patient encounter procedure [facility] Start: 01-25-2023 End: 01-26-2023 ambulatory Pino VALDEZ Facility:[facility] Start: 01-04-2023 End: 01-05-2023 ambulatory [facility] PHYSICIAN TANYA AICHDIAMONDZ Facility:[facility] Start: 10-07-2022 End: 10-08-2022 ambulatory [facility] PHYSICIAN TANYA AICKashmirDIAMONDZ Facility:[facility] Start: 08-18-2022 End: 08-19-2022 ambulatory ROBERTO ALVES . Facility:[facility] Start: 08-12-2022 End: 08-12-[address] ELSA RAE . Facility:[facility] Start: 07-20-2022 End: 08-11-2022 Pre-admission assessment Pinomichelle VALDEZ [facility] Start: 05-17-2022 End: 06-16-2022 Pre-admission assessment Pino Latosha VALDEZ [facility] Start: 05-17-2022 End: 05-17-2022 Patient encounter procedure Pino VALDEZ [facility] Start: 05-03-2022 End: 05-03-2022 ambulatory ROBERTO ALVES . Facility: Start: 03-24-2021 End: 03-24-2021 Departed Referred Bryan Quick Work Phone: [facility] [place] Procedures Date Procedure Procedure Detail Performing Clinician Start: 04-08-2023 PSA screening [facility]IC[facility] PHYSICIAN TANYA FELTON Comment on above: Performed By: #### P [facility] #### [facility] [address] [place] [address] Dr. James Jeffries Pino VALDEZ Procedure on foot Pino LAKESHA LEON Repair of hip Pino VALDEZ Comment on above: Both hips Both hips Transrectal needle b iopsy of prostate Pino VALDEZ Immunizations Immunization Date Immunization Notes Care Provider Jenni dominguez 09-25-2022 SARS-CoV-2 (COVID-19 ) [id number] Pino VALDEZ [facility] 05-26-2021 SARS-CoV-2 (COVID-19 ) mRNA BNT-162b2 vax Pinomichelle VALDEZ [facility] 05-05-2021 SARS-CoV-2 (COVID-19 ) mRNA BNT-162b2 vax Pinomichelle VALDEZ [facility] 03-11-2021 tetanus toxoid, redu liyah diphtheria toxoid, and acellular pertussis vaccine, adsorbed Pinomichelle VALDEZ [facility] [facility] Payers Date Payer Category Payer Medicaid [id number] 1961 Medicare [id number] 1961 Unknown [id number] 1960 Unknown [id number] 2.16.84 [id number] 1958 Unknown [id number] 2.16.84 0.1.190302.3.579.2.593 1958 Unknown [id number] 2.16.84 0.1.274242.3.579.2.593 1958 Unknown [id number] 2.16.84 0.1.053157.3.579.2.593 1958 Unknown [id number] 2.16.84 0.1.376927.3.579.2.593 1958 Unknown [id number] 2.16.84 0.1.648711.3.579.2.593 1958 Unknown [id number] 2.16.84 0.1.684589.3.579.2.593 1958 Unknown [id number] 2.16.84 0.1.335774.3.579.2.593 1958 Unknown [id number] 2.16.8 40.1.561910.3.579.2.727 1958 Unknown [id number] 2.16.8 40.1.555300.3.579.2.727 1958 Unknown [id number] 2.16.8 40.1.501146.3.579.2.727 1958 Unknown [id number] 2.16.8 40.1.584785.3.579.2.727 1958 Unknown [id number] 2.16.8 40.1.900062.3.579.2.727 1958 Unknown [id number] 2.16.8 40.1.174964.3.579.2.727 Self-pay Self Pay [id number] Social History Date Type Detail Facility [facility] Start: 1960 Sex Assigned At Male [facility] Start: 05-17-2022 End: 02-07-2023 Tobacco smoking status Ex-smoker (finding) [facility] Sex Assigned At Male [facility] Tobacco smoking status Never [facility] Goals Date Patient Goal Desired Activity /State Functional Status Date Assessment Result Facility 06-06-2023 Functional Status N/A [facility] 05-17-2023 Functional Status N/A [facility] 02-07-2023 Functional Status N/A [facility] 08-05-2022 N/A [facility] 06-11-2022 Functional Status N/A [facility] 05-17-2022 Functional Status N/A [facility] Clinical Notes 05-17-2022 to 06-06-2023 Note Date & Type Note Facility 06-06-2023 Hospital Discharg e instructions Patient Education 06/06/2023 11:47:03 Prostate Cancer Prostate Cancer The prostate is a small gland that produces fluid that makes up semen (seminal fluid). It is located below the bladder in men, in front of the rectum. Prostate cancer is the abnormal growth of cells in the prostate gland. What are the causes? The exact cause of this condition is not known. What increases the risk? You are more likely to develop this condition if: You are 65 years of age or older. You have a family history of prostate cancer. You have a family history of breast and ovarian cancer. You have genes that are passed from parent to child (inherited), such as BRCA1 and BRCA2. You have Goss syndrome. men and men of descent are diagnosed with prostate cancer at higher rates than other men. The reasons for this are not well understood and are likely due to a combination of genetic and environmental factors. What are the signs or symptoms? Symptoms of this condition include: Problems with urination. This may include: ?A weak or interrupted flow of urine. ?Trouble starting or stopping urination. ?Trouble emptying the bladder all the way. ?The need to urinate more often, especially at night. Blood in urine or semen. Persistent pain or discomfort in the lower back, lower abdomen, or hips. Trouble getting an erection. Weakness or numbness in the legs or feet. How is this diagnosed? This condition can be diagnosed with: A digital rectal exam. For this exam, a health care provider inserts a gloved finger into the rectum to feel the prostate gland. A blood test called a prostate-specific antigen (PSA) test. A procedure in which a sample of tissue is taken from the prostate and checked under a microscope (prostate biopsy). An imaging test called transrectal ultrasonography. Once the condition is diagnosed, tests will be done to determine how far the cancer has spread. This is called staging the cancer. Staging may involve imaging tests, such as a bone scan, CT scan, PET scan, or MRI. Stages of prostate cancer The stages of prostate cancer are as follows: Stage 1 (I). At this stage, the cancer is found in the prostate only. The cancer is not visible on imaging tests, and it is usually found by accident, such as during prostate surgery. Stage 2 (II). At this stage, the cancer is more advanced than it is in stage 1, but the cancer has not spread outside the prostate. Stage 3 (III). At this stage, the cancer has spread beyond the outer layer of the prostate to nearby tissues. The cancer may be found in the seminal vesicles, which are near the bladder and the prostate. Stage 4 (IV). At this stage, the cancer has spread to other parts of the body, such as the lymph nodes, bones, bladder, rectum, liver, or lungs. Prostate cancer grading Prostate cancer is also graded according to how the cancer cells look under a microscope. This is called the Brenden score and the total score can range from 6 10, indicating how likely it is that the cancer will spread (metastasize) to other parts of the body. The higher the score, the greater the likelihood that the cancer will spread. Hunters 6 or lower: This indicates that the cancer cells look similar to normal prostate cells (well differentiated). Hunters 7: This indicates that the cancer cells look somewhat similar to normal prostate cells (moderately differentiated). Brenden 8, 9, or 10: This indicates that the cancer cells look very different than normal prostate cells (poorly differentiated). How is this treated? Treatment for this condition depends on several factors, including the stage of the cancer, your age, personal preferences, and your overall health. Talk with your health care provider about treatment options that are recommended for you. Common treatments include: Observation for early stage prostate cancer (active surveillance). This involves having exams, blood tests, and in some cases, more biopsies. For some men, this is the only treatment needed. Surgery. Types of surgeries include: ?Open surgery (radical prostatectomy). In this surgery, a larger incision is made to remove the prostate. ?A laparoscopic radical prostatectomy. This is a surgery to remove the prostate and lymph nodes through several small incisions. It is often referred to as a minimally invasive surgery. ?A robotic radical prostatectomy. This is laparoscopic surgery to remove the prostate and lymph nodes with the help of robotic arms that are controlled by the surgeon. ?Cryoablation. This is surgery to freeze and destroy cancer cells. Radiation treatment. Types of radiation treatment include: ?External beam radiation. This type aims beams of radiation from outside the body at the prostate to destroy cancerous cells. ?Brachytherapy. This type uses radioactive needles, seeds, wires, or tubes that are implanted into the prostate gland. Like external beam radiation, brachytherapy destroys cancerous cells. An advantage is that this type of radiation limits the damage to surrounding tissue and has fewer side effects. Chemotherapy. This treatment kills cancer cells or stops them from multiplying. It kills both cancer cells and normal cells. Targeted therapy. This treatment uses medicines to kill cancer cells without damaging normal cells. Hormone treatment. This treatment involves taking medicines that act on testosterone, one of the male hormones, by: ?Stopping your body from producing testosterone. ?Blocking testosterone from reaching cancer cells. Follow these instructions at home: Lifestyle Do not use any products that contain nicotine or tobacco. These products include cigarettes, chewing tobacco, and vaping devices, such as e-cigarettes. If you need help quitting, ask your health care provider. Eat a healthy diet. To do this: ?Eat foods that are high in fiber. These include beans, whole grains, and fresh fruits and vegetables. ?Limit foods that are high in fat and sugar. These include fried or sweet foods. Treatment for prostate cancer may affect sexual function. If you have a partner, continue to have intimate moments. This may include touching, holding, hugging, and caressing your partner. Get plenty of sleep. Consider joining a support group for men who have prostate cancer. Meeting with a support group may help you learn to manage the stress of having cancer. General instructions Take msgp-tgw-onospwk and prescription medicines only as told by your health care provider. If you have to go to the hospital, notify your cancer specialist (oncologist). Keep all follow-up visits. This is important. Where to find more information [employer] [employer]: www.cancer.org [employer] [employer]: www.cancer.net National Cancer [place]: www.cancer.gov Contact a health care provider if: You have new or increasing trouble urinating. You have new or increasing blood in your urine. You have new or increasing pain in your hips, back, or chest. Get help right away if: You have weakness or numbness in your legs. You cannot control urination or your bowel movements (incontinence). You have chills or a fever. Summary The prostate is a small gland that is involved in the production of semen. It is located below a man's bladder, in front of the rectum. Prostate cancer is the abnormal growth of cells in the prostate gland. Treatment for this condition depends on the stage of the cancer, your age, personal preferences, and your overall health. Talk with your health care provider about treatment options that are recommended for you. Consider joining a support group for men who have prostate cancer. Meeting with a support group may help you learn to manage the stress of having cancer. This information is not intended to replace advice given to you by your health care provider. Make sure you discuss any questions you have with your health care provider. Document Revised: 02/10/2022 Document Reviewed: 02/10/2022 [email or web address] Patient Education 2022 [employer]. Follow Up Care 04/27/2023 15:15:09 With:DIONY CHANDLER, Pino Reina, URL Address: [facility] [address], [place] [address] [phone] When:Within 6 Month(s) Comments:PSA and ANNE-MARIE [facility] 05-17-2023 Note [id number]:[id number] [facility] 05-17-2023 Hospital Discharg e instructions Patient Education 05/17/2023 11:13:15 [facility] - Transrectal Ultrasound of the Prostate with US guided biopsy Discharge Instructions (CUSTOM) Transrectal Ultrasound of the Prostate with US guided biopsy Even though there are no visible incisions, multiple prostate biopsies have been taken through the rectum and you need to follow some instructions to minimize the risks of bleeding. You may see some blood in your urine and stool for up to 1 week (and blood in the semen for several months) Diet -You may resume your normal diet, but you may want to avoid alcohol, carbonated drinks, caffeine, and spicy foods, which may increase the irritation from the surgery. -Drink plenty of water to keep the urine clear. Activity -You should limit any physical activity for about 48 hours -No heavy lifting or straining (10 pound limit) -No driving a car and limit long car rides for 2 days -No strenuous exercise -No sexual intercourse until this is discussed with your doctor Bowels -Try to keep your bowel movements soft to minimize straining to have a bowel movement. -You may use a stool softener or over the counter laxative if needed -Difficult bowel movement may lead to straining and bleeding from the prostate Medications -You may resume your home medications unless instructed otherwise -Hold aspirin, ibuprofen, Coumadin (warfarin) and other blood thinners for about two days or until there is no active bleeding unless otherwise instructed -Finish the antibiotic which you have already started Things to watch for which would require an Emergency Room visit or call 911: (this is not a complete list) -Persistent or heavy bleeding or blood clots from the rectum or in the urine -Inability to urinate -Fever over 101.5 degrees Fahrenheit, with or without chills -Severe drug reactions with itching, hives or rash -Tenderness or swelling of the calves, chest pain, or shortness of breath Please call the office to arrange for your post-operative appointment in 1-2 weeks [phone] or [phone] Follow Up Care 04/27/2023 15:25:07 With:Pino VALDEZ Address: [facility] [address] [place] [address]- Business (1) When: Unknown Comments:Keep scheduled appointment [facility] 02-07-2023 Hospital Discharg e instructions Patient Education 02/07/2023 08:26:26 Cancer Screening for Men Cancer Screening for Men A cancer screening is a test or exam that checks for cancer. Your health care provider will recommend specific cancer screenings based on your age, personal history, and family history of cancer. Work with your health care provider to create a cancer screening schedule that protects your health. Why is cancer screening done? Cancer screening is done to look for cancer in the very early stages, before it spreads and becomes harder to treat and before you would start to notice symptoms. Finding cancer early improves the chances of successful treatment. It may save your life. Who should be screened for cancer? All men should be screened for colorectal cancer and skin cancer. Your health care provider may recommend screenings for other types of cancer if: You had cancer before. You have a family member with cancer. You have abnormal genes that could increase the risk of cancer. You have risk factors for certain cancers, such as smoking. When you should be screened for cancer depends on: Your age. Your medical history and your family's medical history. Certain lifestyle factors, such as smoking. Environmental exposure, such as to asbestos. What are some common cancer screenings? Lung cancer Lung cancer screening is done with a CT scan that looks for abnormal cells in the lungs. Discuss lung cancer screening with your health care provider if you are 55 74 years old and if any of the following apply to you: You currently smoke. You used to smoke heavily. You have a smoking history of 1 pack a day for 30 years or 2 packs a day for 15 years. You have quit smoking within the past 15 years. If you smoke heavily or if you used to smoke, you may need to be screened every year. Prostate cancer Prostate cancer screening is done with blood tests and an exam in which a health care provider uses a gloved finger to check prostate size (digital rectal exam). You may need to be screened for prostate cancer if: You have risk factors of prostate cancer, such as being or having a close family member with prostate cancer. You have inherited gene changes or a genetic condition, including BRCA1 or BRCA2 gene mutations or Goss syndrome. You have symptoms of prostate cancer, such as problems urinating or erectile dysfunction. Prostate cancer screening for men with average risk may start at age 50. Men with risk factors may need to be screened earlier at age 40 45. Once you have been screened for prostate cancer, future screening may be recommended based on the results of your blood tests. Colorectal cancer All adults should have screening for colorectal cancer starting at age 50 and continuing until age 75. Your health care provider may recommend screening at age 45. You will have tests every 1 10 years, depending on your results and the type of screening test. If you have a family history of colon or rectal cancer or other risk factors, you may need to start having screenings earlier. Talk with your health care provider about which screening test is right for you and how often you should be screened. Colorectal cancer screening looks for cancer or for growths called polyps that often form before cancer starts. Tests to look for cancer or polyps include: Colonoscopy or flexible sigmoidoscopy. For these procedures, a flexible tube with a small camera is inserted into the rectum. CT colonography. This test uses X-rays and a contrast dye to check the colon for polyps. If a polyp is found, you may need to have a colonoscopy so the polyp can be located and removed. Tests to look for cancer in the stool (feces) include: Guaiac-based fecal occult blood test (FOBT). This test detects blood in stool. It can be done at home with a kit. Fecal immunochemical test (FIT). This test detects blood in stool. For this test, you will need to collect stool samples at home. Stool DNA test. This test looks for blood in stool and any changes in DNA that can lead to colon cancer. For this test, you will need to collect a stool sample at home and send it to a lab. Skin cancer Skin cancer screening is done by checking the skin for unusual moles or spots and any changes in existing moles. Your health care provider should check your skin for signs of skin cancer at every physical exam. You should check your skin every month and tell your health care provider right away if anything looks unusual. Men with a wupupu-bset-hbwxtq risk for skin cancer may want to see a neuroscience specialist (bar assistant) for an annual body check. Where to find more information National Cancer [place]: https://www.cancer.gov/about-ca ncer/screening Centers for Disease Control and Prevention: https://www.cdc.gov/cancer/dcpc /prevention/screening.htm [employer] [employer]: https://www.cancer.org/latest-n ews/2-zawrry-jdgjypowy-tests-fo r-men.html Contact a health care provider if: You have concerns about any signs or symptoms of cancer, such as: ?Moles that have an unusual shape or color. ?Changes in existing moles. ?A sore on your skin that does not heal. ?Blood in your urine or stool. ?Fatigue that does not go away. ?Frequent pain or cramping in your abdomen. ?Coughing or trouble breathing that does not go away. ?Coughing up blood. ?Losing weight without trying. ?Changes in urination habits. ?Painful urination or ejaculation. Summary Be aware of and watch for signs and symptoms of cancer, especially symptoms of lung cancer, prostate cancer, colorectal cancer, and skin cancer. Early detection of cancer with cancer screening may save your life. Talk with your health care provider about your specific cancer risks. Work together with your health care provider to create a cancer screening plan that is right for you. This information is not intended to replace advice given to you by your health care provider. Make sure you discuss any questions you have with your health care provider. Document Released: 08/11/2017 Document Revised: 08/03/2019 Document Reviewed: 08/11/2017 [email or web address] Patient Education 2020 [employer]. Follow Up Care 12/10/2022 10:33:39 With:DIONY CHANDLER, Pino Reina, URL Address: [facility] [address] , [place] [address]- When: Unknown [facility] 01-25-2023 Note [id number]:[id number] [facility] 05-17-2022 Hospital Discharg e instructions Patient Education 05/17/2022 13:40:29 Epidermal Cyst, Njke-nm-Hhoj Epidermal Cyst An epidermal cyst is a small, painless lump under your skin. The cyst contains a grayish-white, bad-smelling substance (keratin). Do not try to pop or open an epidermal cyst yourself. What are the causes? A blocked hair follicle. A hair that curls and re-enters the skin instead of growing straight out of the skin. A blocked pore. Irritated skin. An injury to the skin. Certain conditions that are passed along from parent to child (inherited). Human papillomavirus (HPV). Long-term sun damage to the skin. What increases the risk? Having acne. Being overweight. Being 30-40 years old. What are the signs or symptoms? These cysts are usually harmless, but they can get infected. Symptoms of infection may include: Redness. Inflammation. Tenderness. Warmth. Fever. A grayish-white, bad-smelling substance drains from the cyst. Pus drains from the cyst. How is this treated? In many cases, epidermal cysts go away on their own without treatment. If a cyst becomes infected, treatment may include: Opening and draining the cyst, done by a doctor. After draining, you may need minor surgery to remove the rest of the cyst. Antibiotic medicine. Shots of medicines (steroids) that help to reduce inflammation. Surgery to remove the cyst. Surgery may be done if the cyst: ?Becomes large. ?Bothers you. ?Has a chance of turning into cancer. Do not try to open a cyst yourself. Follow these instructions at home: Take trgz-pvj-cqhuqfe and prescription medicines only as told by your doctor. If you were prescribed an antibiotic medicine, take it it as told by your doctor. Do not stop using the antibiotic even if you start to feel better. Keep the area around your cyst clean and dry. Wear loose, dry clothing. Avoid touching your cyst. Check your cyst every day for signs of infection. Check for: ?Redness, swelling, or pain. ?Fluid or blood. ?Warmth. ?Pus or a bad smell. Keep all follow-up visits as told by your doctor. This is important. How is this prevented? Wear clean, dry, clothing. Avoid wearing tight clothing. Keep your skin clean and dry. Take showers or baths every day. Contact a doctor if: Your cyst has symptoms of infection. Your condition does not improve or gets worse. You have a cyst that looks different from other cysts you have had. You have a fever. Get help right away if: Redness spreads from the cyst into the area close by. Summary An epidermal cyst is a sac made of skin tissue. If a cyst becomes infected, treatment may include surgery to open and drain the cyst, or to remove it. Take pxbv-paf-vusrkgb and prescription medicines only as told by your doctor. Contact a doctor if your condition is not improving or is getting worse. Keep all follow-up visits as told by your doctor. This is important. This information is not intended to replace advice given to you by your health care provider. Make sure you discuss any questions you have with your health care provider. Document Released: 12/22/2005 Document Revised: 03/06/2020 Document Reviewed: 08/23/2019 [email or web address] Patient Education 2020 [employer]. 04/19/2022 08:23:29 Testicular Self-Exam Testicular Self-Exam A self-examination of your testicles (testicular self-exam) involves looking at and feeling your testicles for abnormal lumps or swelling. Several things can cause swelling, lumps, or pain in your testicles. Some of these causes are: Injuries. Inflammation. Infection. Buildup of fluids around your testicle (hydrocele). Twisted testicles (testicular torsion). Testicular cancer. Why is it important to do a testicular self-exam? Self-examination of the testicles and the left and right groin areas may be recommended if you are at risk for testicular cancer. Your groin is where your lower abdomen meets your upper thighs. You may be at risk for testicular cancer if you have: An undescended testicle (cryptorchidism). A history of previous testicular cancer. A family history of testicular cancer. How to do a testicular self-exam The testicles are easiest to examine after a warm bath or shower. They are more difficult to examine when you are cold. This is because the muscles attached to the testicles retract and pull them up higher or into the abdomen. A normal testicle is egg-shaped and feels firm. It is smooth and not tender. The spermatic cord can be felt as a firm, spaghetti-like cord at the back of your testicle. Look and feel for changes Stand and hold your penis away from your body. Look at each testicle to check for lumps or swelling. Roll each testicle between your thumb and forefinger, feeling the entire testicle. Feel for: ?Lumps. ?Swelling. ?Discomfort. Check the groin area between your abdomen and upper thighs on both sides of your body. Look and feel for any swelling or bumps that are tender. These could be enlarged lymph nodes. Contact a health care provider if: You find any bumps or lumps, such as a small, hard, pea-sized lump. You find swelling, pain, or soreness. You see or feel any other changes in your testicles. Summary A self-examination of your testicles (testicular self-exam) involves looking at and feeling your testicles for any changes. Self-examination of the testicles and the left and right groin areas may be recommended if you are at risk for testicular cancer. You should check each of your testicles for lumps, swelling, or discomfort. You should check for swelling or tender bumps in your groin area between your lower abdomen and upper thighs. This information is not intended to replace advice given to you by your health care provider. Make sure you discuss any questions you have with your health care provider. Document Released: 02/20/2002 Document Revised: 03/06/2020 Document Reviewed: 10/10/2017 [email or web address] Patient Education 2020 [employer]. Follow Up Care 03/17/2022 10:53:14 With:Pino VALDEZ MD, URL Address: [facility] [address] , [place] [address]- When: Unknown [facility] Evaluation + Plan note Future Appointments Appointment Date:06/08/2022 08:45:00 AM Scheduled Provider: Location:[facility] Appointment Type:Urology CALL PAT FT Appointment Date:06/15/2022 09:00:00 AM Scheduled Provider: Location:[facility] Appointment Type:Urology FT [facility] Evaluation + Plan note Future Appointments Appointment Date:08/23/2022 12:30:00 PM Scheduled Provider:Pino VALDEZ MD Location:[facility] Appointment Type:URO Office Visit [facility] Evaluation + Plan note Future Appointments Appointment Date:06/06/2023 09:45:00 AM Scheduled Provider:Pino VALDEZ MD [facility] App[facility] Type:[facility]O Office Visit Diagnostic Tests PendingProstate Histology ([facility]) 05/17/23 [facility] Evaluation + Plan note Future Appointments Appointment Date:12/09/2023 10:45:00 AM Scheduled Provider:Pino VALDEZ MD Location:[facility] Appointment Type:URO Office Visit Diagnostic Tests PendingPSA Total 06/06/23 [facility] Evaluation note No Assessments Infor mation Available [facility] Hospital course Narrative No data available for this section [facility] Discharge instructions No data available for this section [facility] Progress note No data available for this section [facility] Summary Purpose Family History No Family History Records FoundNo Family History Records FoundNo Family History Records Found Advance Directives No Advanced Directives Records FoundNo Advanced Directives Records FoundNo Advanced Directives Records Found Additional Source Comments (unrecognized sect ion and content) No Status Records FoundNo Status Records FoundNo Status Records Found INFORMATION SOURCE (unrecogn ized section and content) DATE CREATED AUTHOR 04/01/2021 [facility] DATE CREATED AUTHOR AUTHOR'S ORGANIZ ATION 04/13/2023 [facility] DATE CREATED AUTHOR AUTHOR'S ORGANIZ ATION 11/25/2023 [facility] Care Team (unrecognized sect ion and content) Personnel Name: TANYA FELTON CNP Address: [address] Personnel Name: TANYA FELTON CNP Address: [address] Personnel Name: TANYA FELTON CNP Address: [address] [place] [address] [place] Personnel Name: TANYA FELTON CNP Address: Address: [address] [place] [address] Personnel Name: TANYA FELTON CNP Address: Address: [address] [place] [address] Personnel Name: TANYA FELTON CNP Address: Address: [address] [place] [address] FOR RECORDS PERTAINING TO PATIENTS WHO ARE OR HAVE BEEN ENROLLED IN A CHEMICAL DEPENDENCY/SUBSTANCEABUSE PROGRAM, SOME INFORMATION MAY BE OMITTED. This clinical summary was aggregated from multiple sources. Caution should be exercised in using it in the provision of clinical care. This summary normalizes information from multiple sources, and as a consequence, information in this document may materially change the coding, format and clinical context of patient data. In addition, data may be omitted in some cases. CLINICAL DECISIONS SHOULD BE BASED ON THE PRIMARY CLINICAL RECORDS. [facility], [facility]. provides no warranty or guarantee of the accuracy or completeness of information in this document.
[2023-11-30 13:32] LABS: Prostate Specific Antigen Dx 4.22 ng/mL (<=4.00)
== END 2023-11-30 12:33 | disposition home or self-care (01) ==
LOC: LAB 12:33
PROVIDERS: PCP Nurse Practitioner; Visit Provider Urology
DX: C61 Malignant neoplasm of prostate (principal); L72.3 Sebaceous cyst
CPT/HCPCS: 36415; 84153

== ENCOUNTER 2024-01-05 16:25 | Emergency (ER) | payer MEDICARE, MEDICAID, SELFPAY ==
[2024-01-05] VITALS (10 sets, daily range): BP systolic 136; BP diastolic 73; PULSE 89–102; RESP 18–26; TEMP 37.4; O2SAT 81–96; BMI 21.4
--- OUTSIDE RECORDS SUMMARY | 2024-01-05 16:35 | XMS_ITS | CCD ---
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 Name Role Phone Abdelrahman [place] Attending Provider TANYA FELTON Primary Care Physician [phone] AICHHOLZ, COURT COMMISSIONER TANYA Primary Care Unavailable DR LEONOR MA Consulting Unavailable SAMSA ., ROBERTO Admitting Unavailable SAMSA ., ROBERTO Attending Unavailable SAMSA ., ROBERTO Consulting Unavailable AICHHOLZ, COURT COMMISSIONER TANYA Admitting Unavailable AICHHOLZ, COURT COMMISSIONER TANYA Attending Unavailable AICHHOLZ, COURT COMMISSIONER TANYA Consulting Unavailable AICHHOLZ, COURT COMMISSIONER TANYA Primary Care Unavailable AICHHOLZ, COURT COMMISSIONER TANYA Admitting Unavailable AICHHOLZ, COURT COMMISSIONER TANYA Primary Care Unavailable AICHHOLZ, COURT COMMISSIONER TANYA Attending Unavailable AICHHOLZ, COURT COMMISSIONER TANYA Consulting Unavailable AICHHOLZ, COURT COMMISSIONER TANYA Primary Care Unavailable DR LEONOR AM Consulting Unavailable SAMSA ., ROBERTO Admitting Unavailable SAMSA ., ROBERTO Attending Unavailable SAMSA ., ROBERTO Consulting Unavailable DR LEONOR MA Consulting Unavailable SAMSA ., ROBERTO Admitting Unavailable SAMSA ., ROBERTO Attending Unavailable SAMSA ., ROBERTO Consulting Unavailable DR ELSA NOBLE Admitting Unavailable DR OK CISNEROS V Consulting Unavailable AICHHOLZ, COURT COMMISSIONER TANYA Primary Care Unavailable DR ELSA NOBLE Attending Unavailable DR ELSA NOBLE Consulting Unavailable SAMSA ., ROBERTO Admitting Unavailable AICHHOLZ, COURT COMMISSIONER TANYA Primary Care Unavailable SAMSA ., ROBERTO Attending Unavailable SAMSA ., ROBERTO Consulting Unavailable SAMSA ., ROBERTO Admitting Unavailable AICHHOLZ, COURT COMMISSIONER TANYA Primary Care Unavailable ZIEBER, DR LEONOR R Consulting Unavailable SAMSA ., ROBERTO Attending Unavailable SAMSA ., ROBERTO Consulting Unavailable DIONY, Pino Reina Attending Unavailable VALDEZ, Pino Reina Attending Unavailable VALDEZ, Pino Reina Attending Unavailable VALDEZ, Pino Reina Referring Unavailable VALDEZ, Pino Reina Attending Unavailable VALDEZ, Pino Reina Admitting Unavailable VALDEZ, Pino Reina Attending Unavailable VALDEZ, Pino Reina Admitting Unavailable VALDEZ, Pino Reina Referring Unavailable VALDEZ, Pino Reina Attending Unavailable VALDEZ, Pino Reina Attending Unavailable Allergies Allergy Classification Reported Allergen(s) Allergy Type Date of Onset Reaction(s) Facility (1 source) No Known Medication Allergies; Translations: [No Known Medication Allergies] Propensity to adverse reactions (disorder) [facility] Repository Medications Current Medications Medication Drug [...] te Episodic/Chronic Other aftercare (1 source) Other jail (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 therapy; Translations: [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 Your health care provider may also give you more specific instructions. If you have problems or questions, contact your health care provider. What can I expect after the procedure? After the procedure, it is common to have: ? Pain and discomfort near your rectum, especially while sitting. ? Vanleer-colored urine due to small amounts of blood in your urine. ? A burning feeling while urinating. ? Blood in your stool (feces) or bleeding from your rectum. ? Blood in your semen. Follow these instructions at home: Medicines ? Take pcra-wms-dlijejr and prescription medicines only as told by your health care provider. ? If you were given a sedative during your procedure, it can affect you for several hours. Do not drive or operate machinery until your health care provider says that it is safe. ? If you were prescribed an antibiotic medicine, take it as told by your health care provider. Do not stop using the antibiotic even if you start to feel better. Activity ? Return to your normal activities as told by your health care provider. Ask your health care provider what activities are safe for you. ? Ask your health care provider when it is okay for you to resume sexual activity. ? You may have to avoid lifting. Ask your health care provider how much you can safely lift. General instructions ? Drink enough fluid to keep your urine pale yellow. ? Watch your urine, stool, and semen for new or increased bleeding. ? Keep all follow-up visits. This is important. Contact a health care provider if: ? You have any of the following: ? Blood clots in your urine or stool. ? Blood in your urine more than 2 weeks after the procedure. ? Blood in your semen more than 2 months after the procedure. ? New or increased bleeding in your urine, stool, or semen. ? Severe pain in your abdomen. ? Your urine smells bad or unusual. ? You have trouble urinating. ? Your lower abdomen feels firm. ? You have problems getting an erection. ? You have nausea or you vomit. Get help right away if: ? You have a fever or chills. This could be a sign of infection. ? You have bright red urine. ? You have severe pain that does not get better with medicine. ? You cannot urinate. Summary ? After this procedure, it is common to have pain and discomfort around your rectum, especially while sitting. ? You may have blood in your urine and stool after the procedure. ? It is common to have blood in your semen after this procedure. ? Get help right away if you have a fever or chills. This could be a sign of infection. This information is not intended to replace advice given to you by your health care provider. Make sure you discuss any questions you have with your health care provider. Document Revised: 05/10/2022 Document Reviewed: 05/10/2022 [employer] Patient Education ? 2022 [employer]. Transrectal Ultrasound-Guided Prostate Biopsy A transrectal ultrasound-guided prostate biopsy is a procedure to remove samples of prostate tissue for testing. The prostate is a walnut-sized gland that is located below the bladder and in front of the rectum. During this procedure, a small device (probe) is lubricated and put inside the rectum. The probe sends out sound waves that make a picture of the prostate and surrounding tissues (transrectal ultrasound). The images are used to help guide the process of removing the samples. The samples are taken to a lab to be checked for prostate cancer. This procedure is usually done to evaluate the prostate gland of men who have raised (elevated) levels of prostate-specific antigen (PSA), which can be a sign of prostate cancer or prostate enlargement related to aging (benign prostatic hyperplasia, or BPH). Tell a health care provider about: ? Any allergies you have. ? All medicines you are taking, including vitamins, herbs, eye drops, creams, and qgon-mqb-pepzsqu medicines. ? Any problems you or family members have had with anesthetic medicines. ? Any bleeding problems you have. ? Any surgeries you have had. ? Any medical conditions you have. ? Any prostate infections you have had. What are the risks? Generally, this is a safe procedure. However, problems may occur, including: ? Prostate infection. ? Bleeding from the rectum. ? Blood in the urine. ? Allergic reactions to medicines. ? Damage to surrounding structures such as blood vessels, organs, or muscles. ? Difficulty passing urine. ? Nerve damage. This is usually temporary. What happens before the procedure? Medicines Ask your health care provider about: ? Changing or stopping your regular medicines. This is especially important if you are taking diabetes medicines or blood thinners. ? Taking medicines such as aspirin (more content not included)... Normal [facility] Urology Office/Clinic Noteon 01-02-2024 Urology Office/Clinic Note Chief Complaint prostate cancer (ACTIVE SURVEILLANCE) HPI Staff 6 month f/u with PSA. Dx: prostate cancer (ACTIVE SURVEILLANCE) TRUS BX 05/17/23 PSA: 11/30/23 - 4. Dysuria: no Incomplete bladder emptying: no Hematuria: no Frequency: no Urgency: no Nocturia: 2x Stream: very little straining Leaking: rare Post void dripping: rare Wearing pads/ Depends: no Urge incontinence: no Stress incontinence: no Incontinence without Sensory Awareness: no Abdominal pain: no Flank pain: no Sexual complaints: no History of Present Illness Tests reviewed: reviewed UA, PSA I have reviewed the previous health record information and history for this patient from Dr. Valdez. I have reviewed and verified the staff HPI to be accurate for this encounter. Review of Systems PHQ Score Initial Depression Screen Score: 0 SCORE ROS - Provider Constitutional: denies weight loss, [...] HPI. Physical Exam Vitals & Measurements HR: 82(Peripheral) RR: 16 BP: 127/74 HT: 69 in HT: 175 cm WT: 63.1 kg WT: 138.82 lb BMI: 20.6 General Appearance: alert, no distress, well nourished, well developed male. Genitourinary: normal scrotum, normal testes, normal urethra, normal epididymis, normal vas deferens/spermatic cord. Flank Pain: none. Bladder: nonpalpable. Prostate: normal prostate, estimated weight 25 gms, no hard nodule observed. Assessment/Plan 1. Prostate cancer (C61: Malignant neoplasm of prostate) ACTIVE SURVEILLANCE. PSA 03/15/22 - 0.11 04/08/23 - 4.46 11/30/23 - 4.22 ANNE-MARIE: 25g, benign No family history of prostate cancer. S/p TRUS/bx 05/17/23 - Kulpmont score 6 (3+3) in 2 cores each one is less than 10%. 2 HGPINs. States he has mild post void dribbling and occasionally gets up during the night to void. Not bothersome enough to warrant treatment. Discussed PSA level w/ pt, has decreased from prior. Discussed prostate biopsy will need repeated for restaging given most recent biopsy was almost a year ago. -Will schedule repeat TRUS of Prostate with Biopsy. The procedural risks, benefits, details, and treatment alternatives have been discussed with the patient. These include minimal to severe bleeding, infection, blood in the semen, inability to urinate, and severe infection requiring hospitalization and IV antibiotics, among others. Full informed consent has been obtained. Will order Local anesthesia. 2. Sebaceous cyst (L72.3: Sebaceous cyst) S/p excision of hemiscrotal 2 cm scrotal cyst 01/25/23. Path shows epidermal inclusion cyst, benign. UA today negative for blood and infection. Follow-up With When Contact Information DIONY CHANDLER, Pino Reina, URL [facility] [address], [place] [address]- [phone] Additional Instructions: sched repeat TRUS/bx Patient Education Transrectal Ultrasound-Guided Prostate Biopsy, Care After Transrectal Ultrasound-Guided Prostate Biopsy Vesta Mcguire, personally scribed for Dr. Valdez on 01/02/2024 13:51:44. . Documentation recorded by the scribeVesta, accurately reflects the services(s) I performed and decisions made by me. Authenticated by Dr. Valdez on 01/02/2024 13:53:37. Problem List/Past Medical History Ongoing Arthritis Chronic [...] release, 180 mg= 1 cap(s), Oral, Daily predniSONE 10 mg Tab Protonix, unknown dose, Oral, Daily Roflumilast 500 mcg oral tablet Spiriva Respimat 60 ACT 2.5 mcg/inh inhalation [...] 02/07/2023 Family History Alcoholism: Father. Emphysema: Father. I (more content not included)... Normal [facility] Comment on above: Result Comment: Elec tronically Signed By: Pino VALDEZ MD\.br\Date and Time Signed: 01/02/24 13:53 EST\.br\Electronically Co-Signed By: Vesta Cortes.br\Date and Time Co-Signed: 01/02/24 13:52 EST Lab Reportson 12-01-2023 Lab Reports [id number] #1.00TIFF [facility] IntraOperative Documentson 0 06-09-2023 IntraOperative Documents [id number] #1.00CD:127 [facility] Ambulatory Visit Summaryon 0 06-06-2023 Ambulatory Visit Summary MATEO STEARNS :1960 Visit Date:06/06/2023 Ambulatory Visit Instructions Your Diagnosis Prostate cancer Sebaceous cyst Tests Performed Urnls Dip Stick Auto w/o Microscopy POC 99963 Your Care Team Attending Physician - Pino VALDEZ MD Primary Care Physician - TANYA FELTON CNP [...] CHANDLER, Pino Reina Where: [facility] Patient Educationon 06-06-20 23 Patient [...] to normal prostate cells (well differentiated). ? Brenden 7: This indicates that the cancer cells [...] external be (more content not included)... Normal [facility] Urology Office/Clinic Noteon 06-06-2023 Urology Office/Clinic Note [...] 04/08/23 - 4.46 S/p TRUS/bx 05/17/23 - Kulpmont score 6 (3+3) in 2 cores each [...] months [facility] [address], [place] [address] [phone] Additional Instructions: PSA and ANNE-MARIE Patient Education Prostate Cancer I, Vesta Cortes, personally scribed for Dr. Valdez on 06/06/2023 11:47:20. . Documentation recorded by the scribe, Vesta Cortes, accurately reflects the services(s) I performed and [...] Cigarettes, 02/07/2023 (more content not included)... Normal [facility] Comment on above: Result Comment: Elec tronically Signed By: Pino VALDEZ MD\.br\Date and Time Signed: 06/06/23 11:52 EDT\.br\Electronically Co-Signed By: Vesta Cortes\.br\Date and Time Co-Signed: 06/06/23 11:47 EDT Prostate Histology ([facility]) on 05-24-2023 Prostate Histology Diagnosis Info Invalid Interpretation Code [facility] Comment on above: Result Comment: A:Pr ostate,Left Lateral Base:Needle Biopsy Interpretation - - Acinar adenocarcinoma of prostate; Kulpmont score 6(3+3); Tumor measures 0.12 cm in length; 8% of the core involved by tumor; 1 of 1 core involved (see comment). MicroScopic Description - B:Prostate,Left Lateral Mid:Needle Biopsy Interpretation - - Benign prostatic tissue. MicroScopic Description - C:Prostate,Left Lateral Whitestone:Needle Biopsy Interpretation - - Benign prostatic tissue. MicroScopic Description - D:Prostate,Left Base:Needle Biopsy Interpretation - - Acinar adenocarcinoma of prostate; Brenden score 6(3+3); Tumor measures 0.08 cm in length; 4% of the core involved by tumor; 1 of 1 core involved (see comment). MicroScopic Description - - High-grade prostatic intraepithelial neoplasia (HGPIN). E:Prostate,Left Mid:Needle Biopsy Interpretation - - Benign prostatic tissue. MicroScopic Description - F:Prostate,Left Whitestone:Needle Biopsy Interpretation - - Atypical small acinar glands. MicroScopic Description - G:Prostate,Right Base:Needle Biopsy Interpretation - - Benign prostatic tissue. MicroScopic Description - H:Prostate,Right Mid:Needle Biopsy Interpretation - - Benign prostatic tissue. MicroScopic Description - I:Prostate,Right Whitestone:Needle Biopsy Interpretation - - High-grade prostatic intraepithelial neoplasia (HGPIN). MicroScopic Description - J:Prostate,Right Lateral Base:Needle Biopsy Interpretation - - High-grade prostatic intraepithelial neoplasia (HGPIN). MicroScopic Description - K:Prostate,Right Lateral Mid:Needle Biopsy Interpretation - - Benign prostatic tissue. MicroScopic Description - L:Prostate,Right Lateral Whitestone:Needle Biopsy Interpretation - - Benign prostatic tissue. [...] cores 1 units cm Highest grade group: Kulpmont score 3+3=6, grade group 1. Highest percentage [...] The performance characteristics were determined by the [employer] [place], [place]. They have not been cleared by the [place] Food and Drug Administration. The FDA has determined that such clearance or approval is not necessary. Appropriate positive and negative controls are performed and are acceptable. Electronically signed by : on: 05/24/2023 12:41:39 Performed By: #### 1 [id number] ####[facility] [address] [place] [address] Consent for Procedure/Surger yon 05-17-2023 Consent for Procedure/Surgery [id number] 3#1.00CD:127 Normal [facility] Consent for Treatmenton 04-29 Consent for Treatment [id number] #1.00CD:127 Normal [facility] IntraOperative Documentson 0 05-17-2023 IntraOperative Documents [id number] 5#1.00CD:127 Normal [facility] Main OR Intraoperative Recor don 05-17-2023 Main OR Intraoperative Record IntraOp Document Type FTURO Summary Primary Physician: Pino VALDEZ MD Finalized Date/Time: 05/17/23 11:14:47 Pt. Name: MATEO STEARNS Schuyler BolañosB./Sex: 1960 Male Med Rec #: [id number] Physician: Pino VALDEZ MD Financial #: [id number] Pt. Type: O Room/Bed: / Admit/Disch: 05/17/23 10:34:13 - Institution: Case Times FTURO Entry 1 Patient Times In Room 05/17/23 10:56:00 Out Room 05/17/23 11:14:00 Procedure Times Start 05/17/23 11:01:00 Stop 05/17/23 11:09:00 Anesthesia Times Last Modified By: Diana Kiran RN 05/17/23 11:14:41 Case Attendance FTURO Entry 1 Entry 2 Entry 3 Case Attendee Pino VALDEZ MD INSPECTOR PROCESS, Chanell Kiran RN, Diana Kirby Performed Surgeon - Primary Scrub - Primary Crt - Primary Time In 05/17/23 10:56:00 05/17/23 [...] Position Verified Availability Equipment, Medication Time Out DIONY CHANDLER, Pino Reina, Verified (If Participants Chanell Redding CST, Applicable) [...] By: Diana Kiran RN 05/17/23 11:14 Normal [facility] Main OR Preoperative Recordo n 05-17-2023 Main OR Preoperative Record Holding Area Document Type FTURO Summary Primary Physician: Pino VALDEZ MD Finalized Date/Time: 05/17/23 10:57:44 Pt. Name: MATEO STEARNS /Sex: 1960 Male Med Rec #: [id number] Physician: Pino VALDEZ MD Financial #: [id number] Pt. Type: O Room/Bed: / Admit/Disch: 05/17/23 [...] Complaints of Pain: No Skin Integrity Intact, Vanleer, Warm, & Dry Vitals - EU Blood Pressure 124/80 Pulse 76 bpm Respirations 20 br/min SPO2 97 % RN Reviewed Yes Last Modified By: Diana Kiran RN 05/17/23 10:57:42 General Comments: Temp 37.0 Finalized By: Diana Kiran RN Document Signatures Signed By: Annia Andersen LPN 05/17/23 10:51 Diana Kiran RN 05/17/23 10:57 Normal [facility] Operative Reporton Operative Report Patient: MATEO [...] were sent to pathology for evaluation. Normal [facility] Comment on above: Result Comment: Elec tronically Signed By: DIONY CHANDLER, Pino Arrington\Date and Time Signed: 05/17/23 11:16 EDT Outpatient Surgery Discharge Instructionon 05-17-2023 Outpatient Surgery Discharge Instruction [id number] 3#1.00CD:127 Normal [facility] Patient Educationon 05-17-20 Patient Education Custom Transrectal Ultrasound of the [...] for your post-operative appointment in 1-2 weeks [phone] or [phone] Normal [facility] Prostate Histology ([facility]) on 05-17-2023 PH Method of Extraction Needle Biopsy Normal [facility] Comment on above: Performed By: #### 1 [id number] ####[facility] [address] [place] [address] PH Number of Jars 2 Invalid Interpretation Code [facility] Comment on above: Performed By: #### 1 [id number] ####[facility] [address] [place] [address] PH Specimen 1 L Base Prostate Normal [facility] Comment on above: Performed By: #### 1 [id number] ####[facility] [address] [place] [address] PH Specimen 10 R Lat Bse Prost Normal [facility] Comment on above: Performed By: #### 1 [id number] ####[facility] [address] [place] [address] PH Specimen 11 R Lat Mid Prost Normal [facility] Comment on above: Performed By: #### 1 [id number] ####[facility] [address] [place] [address] PH Specimen 12 R Lat Apx Prost Normal [facility] Comment on above: Performed By: #### 1 [id number] ####[facility] [address] [place] [address] PH Specimen 2 L Mid Prostate Normal [facility] Comment on above: Performed By: #### 1 [id number] ####[facility] [address] [place] [address] PH Specimen 3 L Apx Prostate Normal [facility] Comment on above: Performed By: #### 1 [id number] ####[facility] [address] [place] [address] PH Specimen 4 L Lat Bse Prost Normal [facility] Comment on above: Performed By: #### 1 [id number] ####[facility] [address] [place] [address] PH Specimen 5 L Lat Mid Prost Normal [facility] Comment on above: Performed By: #### 1 [id number] ####[facility] [address] [place] [address] PH Specimen 6 L Lat Apx Prost Normal [facility] Comment on above: Performed By: #### 1 [id number] ####[facility] [address] [address] PH Specimen 7 R Base Prostate Normal [facility] Comment on above: Performed By: #### 1 [id number] ####[facility] [address] [address] PH Specimen 8 R Mid Prostate Normal [facility] Comment on above: Performed By: #### 1 [id number] ####[facility] [address] [address] PH Specimen 9 R Apx Prostate Normal [facility] Comment on above: Performed By: #### 1 [id number] ####[facility] [address] [place] [address] PH Type of Service Technical Only Normal [facility] Comment on above: Performed By: #### 1 [id number] ####[facility] [address] [place] [address] Lab Reportson 05-16-2023 Lab Reports [id number] #1.00CD:127 Normal [facility] Insurance Correspondenceon 0 04-29-2023 Insurance Correspondence [id number] 5#1.00CD:127 Normal [facility] PSA, FREE AND TOTAL RATIOon 04-13-2023 % Free PSA 12.1 % Normal [facility] Comment on above: Result Comment: The table [...] men. Performed By: #### H ISTGAL #### [facility] [address] [place] [address] Dr. James Crowley Prostate specific Ag [Mass/Vol] 3.4 ng/mL Normal 0.0-4.0 [facility] Comment on above: Result Comment: Rosa Elena HILLIA methodology. . According to the [place] [employer], Serum PSA should decrease and [...] disease. Performed By: #### H ISTGAL #### [facility] [address] [place] [address] Dr. James Crowley PSA, Free 0.41 ng/mL Normal N/A [facility] Comment on above: Result Comment: Rosa Elena edwards ECLIA methodology. Performed By: #### H ISTGAL #### [facility] [address] [place] [address] Dr. James Crowley CBC AUTO DIFFon 04-08-2023 BASO # 0.1 103/ul Normal 0.0-0.1 [facility] Comment on above: Performed By: #### C BC #### [facility] [address] [place] [address] Dr. James Crowley Basophils/100 WBC (Bld) 0.5 % Normal 0.2-2.0 [facility] Comment on above: Performed By: #### C BC #### [facility] [address] [place] [address] Dr. James Crowley EO # 0.1 103/ul Normal 0.0-0.7 [facility] Comment on above: Performed By: #### C BC #### [facility] [address] [place] [address] Dr. James Crowley Eosinophils/100 WBC (Bld) 1.3 % Normal 0.9-7.0 [facility] Comment on above: Performed By: #### C BC #### [facility] [address] [place] [address] Dr. James Crowley Erythrocyte distribution width (RBC) [Ratio] 13.5 % Normal 11.0-15.0 [facility] Comment on above: Performed By: #### C BC #### [facility] [address] [place] [address] Dr. James Crowley Hematocrit (Bld) [Volume fraction] 48.4 % Normal 42.0-54.0 [facility] Comment on above: Performed By: #### C BC #### [facility] [place] [facility] [address] [place] [address] Dr. James Crowley Hemoglobin (Bld) [Mass/Vol] 15.6 g/dL Normal 14.0-18.0 [facility] Comment on above: Performed By: #### C BC #### [facility] [place] [facility] [address] [place] [address] Dr. James Crowley IG # 0.08 10e3/ul Critically high 0.00-0.03 [facility] Comment on above: Performed By: #### C BC #### [facility] [place] [facility] [address] [place] [address] Dr. James Crowley IG % 0.8 % Critically high 0.0-0.5 [facility] Comment on above: Performed By: #### C BC #### [facility] [place] [facility] [address] [place] [address] Dr. James Crowley LYMPH # 3.1 103/ul Normal 1.2-3.8 [facility] [place] [facility] Comment on above: Performed By: #### C BC #### [facility] [place] [facility] [address] [place] [address] Dr. James Crowley Lymphocytes/100 WBC (Bld) 29.8 % Normal 20.5-60.0 [facility] Comment on above: Performed By: #### C BC #### [facility] [place] [facility] [address] [place] [address] Dr. James Crowley MANUAL DIFF REQ NO Normal [facility] Comment on above: Performed By: #### C BC #### [facility] [place] [facility] [address] [place] [address] Dr. James Crowley MCH (RBC) [Entitic mass] 29.3 pg Normal 25.9-34.0 [facility] Comment on above: Performed By: #### C BC #### [facility] [place] [facility] [address] [place] [address] Dr. James Crowley MCHC (RBC) [Mass/Vol] 32.2 g/dL Normal 29.9-35.2 [facility] Comment on above: Performed By: #### C BC #### [facility] [place] [facility] [address] [place] [address] Dr. James Crowley MCV (RBC) [Entitic vol] 90.8 fL Normal 80.0-94.0 [facility] Comment on above: Performed By: #### C BC #### [facility] [place] [facility] [address] [place] [address] Dr. James Crowley MONO # 0.6 103/ul Normal 0.3-0.8 [facility] Comment on above: Performed By: #### C BC #### [facility] [place] [facility] [address] [place] [address] Dr. James Crowley Monocytes/100 WBC (Bld) 5.9 % Normal 1.7-12.0 [facility] Comment on above: Performed By: #### C BC #### [facility] [place] [facility] [address] [place] [address] Dr. James Crowley NEUT # 6.4 103/ul Normal 1.4-6.5 [facility] Comment on above: Performed By: #### C BC #### [facility] [place] [facility] [address] [place] [address] Dr. James Crowley Neutrophils/100 WBC (Bld) 61.7 % Normal 43.0-75.0 [facility] Comment on above: Performed By: #### C BC #### [facility] [place] [facility] [address] [address] [address] James Crowley Platelet mean volume (Bld) [Entitic vol] 9.1 fL Critically low 9.5-13.5 [facility] Comment on above: Performed By: #### C BC #### [facility] [place] [facility] [address] [address] [address] James Crowley PLT 320 103/ul Normal 150-450 [facility] [place] [facility] Comment on above: Performed By: #### C BC #### [facility] [place] [facility] [address] [address] [address] James Crowley RBC 5.33 106/ul Normal 4.70-6.10 [facility] Comment on above: Performed By: #### C BC #### [facility] [place] [facility] [address] [address] [address] James Crowley WBC 10.4 103/ul Normal 4.0-11.0 [facility] [place] [facility] Comment on above: Performed By: #### C BC #### [facility] [place] [facility] [address] [place] [address] CHEST W CONon [...] by: LEONOR MA Date: 2023-04-08 10:41 Normal [facility] LIPID PROFILEon 04-08-2023 CHOL-HDL RATIO NORM SEE BELOW Normal [facility] Comment on above: Result Comment: 3.3 - 4.4 LOW RISK 4.4 - 7.1 AVERAGE RISK 7.1 - 11.0 MODERATE RISK >11.0 HIGH RISK Performed By: #### U NEO, LIPID #### [facility] [place] [facility] [address] [address] [address] James Crowley Cholesterol [Mass/Vol] 204 mg/dL Critically high <=200 [facility] Comment on above: Performed By: #### U NEO, LIPID #### [facility] [place] [facility] [address] [address] [address] James Crowley Cholesterol in HDL [Mass/Vol] 55 mg/dL Normal 40-60 [facility] Comment on above: Performed By: #### U NEO, LIPID #### [facility] [place] [facility] [address] [address] [address] James Crowley Cholesterol in LDL [Mass/Vol] 115.2 mg/dL Normal [facility] Comment on above: Performed By: #### U NEO, LIPID #### [facility] [place] [facility] [address] [address] [address] James Crowley Cholesterol.total/Cho lesterol in HDL [Mass ratio] 3.7 {ratio} Normal [facility] Comment on above: Performed By: #### U NEO, LIPID #### [facility] [place] [facility] [address] [address] [address] James Crowley HDL NORMAL > or = 60 mg/dl - LOW CARDIOVASCULAR RISK <40 mg/dl - HIGH CARDIOVASCULAR RISK Normal [facility] Comment on above: Performed By: #### U NEO, LIPID #### [facility] [place] [facility] [address] [address] [address] James Crowley LDL CALC NORMAL SEE BELOW Normal [facility] Comment on above: Result Comment: <100 mg/dl OPTIMAL 100 - 129 mg/dl NEAR OR ABOVE OPTIMAL 130 - 159 mg/dl BORDERLINE HIGH 160 - 189 mg/dl HIGH >190 mg/dl VERY HIGH Performed By: #### U NEO, LIPID #### [facility] [place] [facility] [address] [address] [address] James Crowley Triglyceride [Mass/Vol] 169 mg/dL Critically high <=150 [facility] Comment on above: Performed By: #### U NEO, LIPID #### [facility] [place] [facility] [address] [address] [address] James Crowley VLDL CALC 33.8 mg/dL Normal [facility] Comment on above: Performed By: #### U NEO, LIPID #### [facility] [place] [facility] [address] [address] [address] James Crowley PROF 14(COMP METB)on 023 Albumin [Mass/Vol] 3.7 g/dL Normal 3.4-5.0 [facility] Comment on above: Performed By: #### U NEO, LIPID #### [facility] [place] [facility] [address] [address] [address] James Crowley Albumin/Globulin [Mass ratio] 0.9 {ratio} Normal [facility] Comment on above: Performed By: #### U NEO, LIPID #### [facility] [place] [facility] [address] [address] [address] James Crowley ALP [Catalytic activity/Vol] 86 U/L Normal 46-116 [facility] Comment on above: Performed By: #### U NEO, LIPID #### [facility] [place] [facility] [address] [address] [address] James Crowley ALT [Catalytic activity/Vol] 33 U/L Normal 16-63 [facility] Comment on above: Performed By: #### U NEO, LIPID #### [facility] [place] [facility] [address] [address] [address] James Crowley Anion gap [Moles/Vol] 14.8 mmol/L Normal [facility] Comment on above: Performed By: #### U NEO, LIPID #### [facility] [place] [facility] [address] [address] [address] James Crowley AST [Catalytic activity/Vol] 16 U/L Normal 15-37 [facility] Comment on above: Performed By: #### U NEO, LIPID #### [facility] [place] [facility] [address] [address] [address] aJmes Crowley Bilirubin [Mass/Vol] 0.7 mg/dL Normal 0.2-1.0 [facility] Comment on above: Performed By: #### U NEO, LIPID #### [facility] [place] [facility] [address] [address] [address] James Crowley Calcium [Mass/Vol] 9.1 mg/dL Normal 8.5-10.1 [facility] Comment on above: Performed By: #### U NEO, LIPID #### [facility] [place] [facility] [address] [address] [address] James Crowley Chloride [Moles/Vol] 107 mmol/L Normal 98-107 [facility] Comment on above: Performed By: #### U NEO, LIPID #### [facility] [place] [facility] [address] [address] [address] James Crowley CO2 [Moles/Vol] 28.0 mmol/L Normal 21.0-32.0 [facility] Comment on above: Performed By: #### U NEO, LIPID #### [facility] [place] [facility] [address] [address] [address] James Crowley Creatinine [Mass/Vol] 1.10 mg/dL Normal 0.70-1.30 [facility] Comment on above: Performed By: #### U NEO, LIPID #### [facility] [place] [facility] [address] [address] [address] James Crowley EGFR-AF ALGERIAN >60 Normal >=60 [facility] Comment on above: Performed By: #### U NEO, LIPID #### [facility] [place] [facility] [address] [address] [address] James Crowley EGFR-NON AF ALGERIAN >60 Normal >=60 [facility] Comment on above: Performed By: #### U NEO, LIPID #### [facility] [place] [facility] [address] [address] [address] James Crowley Globulin (S) [Mass/Vol] 3.9 g/dL Normal [facility] Comment on above: Performed By: #### U NEO, LIPID #### [facility] [place] [facility] [address] [address] [address] James Crowley Glucose [Mass/Vol] 98 mg/dL Normal 74-106 [facility] Comment on above: Performed By: #### U NEO, LIPID #### [facility] [place] [facility] [address] [address] [address] James Crowley Potassium [Moles/Vol] 3.8 mmol/L Normal 3.5-5.1 [facility] Comment on above: Performed By: #### U NEO, LIPID #### [facility] [place] [facility] [address] [place] [address] Dr. James Crowley Protein [Mass/Vol] 7.6 g/dL Normal 6.4-8.2 [facility] Comment on above: Performed By: #### U NEO, LIPID #### [facility] [place] [facility] [address] [address] [address] James Crowley Sodium [Moles/Vol] 146 mmol/L Critically high 136-145 [facility] Comment on above: Performed By: #### U NEO, LIPID #### [facility] [place] [facility] [address] [address] [address] James Crowley Urea nitrogen [Mass/Vol] 18.0 mg/dL Normal 7.0-18.0 [facility] Comment on above: Performed By: #### U NEO, LIPID #### [facility] [place] [facility] [address] [address] [address] James Crowley Urea nitrogen/Creatinine [Mass ratio] 16.4 mg/mg Normal [facility] Comment on above: Performed By: #### U NEO, LIPID #### [facility] [place] [facility] [address] [address] [address] James Crowley URIC ACID SERUMon 04-08-2023 Urate [Mass/Vol] 6.7 mg/dL Normal 3.5-7.2 [facility] Comment on above: Performed By: #### U NEO, LIPID #### [facility] [place] [facility] [address] [place], [place] [address] Dr. James Crowley Patient Educationon 02-08-20 23 Patient Education Oncology Cancer Screening for Men [...] if anything looks unusual. Men with a ksgxnk-alsi-kbcdpn risk for skin cancer may want to see a property specialist (leg breaker) for an annual body check. Where to find more information ? National Cancer [employer]: https://www.cancer.g ov/about-cancer/scre ening ? Centers for Disease Control and Prevention: https://www.cdc.gov/ cancer/dcpc/preventi on/screening.htm ? [place] [employer]: https://www.cancer.o rg/latest-news/4-can lqj-whhsaynsf-lujrg- for-men.html Contact a health care (more content not included)... Normal [facility] Urology Office/Clinic Noteon 02-07-2023 Urology Office/Clinic [...] Pino Reina, URL [facility] [address], [place] [address]- Additional Instructions: PRN Patient Education Cancer Screening for Men I, Radha Nobles, personally scribed for Dr. Valdez on 02/07/2023 [...] Father. Immunizations Vaccine Date Status SARS-CoV-2 (COVID-19) [id number] 09/25/2022 Recorded SARS-CoV-2 (COVID-19) mRNA BNT-162b2 vax [...] Protein Urine Dipstick: Negative (02/07/23 12:43:00) Specific [place] Urine Dipstick: 1.010 (02/07/23 12:43:00) Urine Appearance Urine Dipstick: Clear (02/07/23 12:43:00) Urine Color Urine Dipstick: Light yellow (02/07/23 12:43:00) Urobilinogen Urine Dipstick: Normal 0.2-1 EU/dl (02/07/23 12:43:00) pH Uri (more content not included)... Normal [facility] Comment on above: Result Comment: Elec tronically Signed By: Pino VALDEZ MD\.br\Date and Time Signed: 02/07/23 13:05 EDT\.br\Electronically Co-Signed By: Radha Nobles\.br\Date and Time Co-Signed: 02/07/23 13:00 EDT Consent for Procedure/Surger yon 01-25-2023 Consent for Procedure/Surgery [id number] 8#1.00CD:127 [facility] Consent for Treatmenton 12-30 Consent for Treatment [id number] #1.00CD:127 [facility] IntraOperative Documentson 0 01-25-2023 IntraOperative Documents [id number] 3#1.00CD:127 [facility] Main OR Intraoperative Recor don 01-25-2023 Main OR Intraoperative Record IntraOp Document Type FTURO Summary Primary Physician: Pino VALDEZ MD Finalized Date/Time: 01/25/23 14:02:36 Pt. Name: MATEO STEARNS Schuyler Strickland./Sex: 1960 Male Med Rec #: [id number] Physician: Pino VALDEZ MD Financial #: [id number] Pt. Type: O Room/Bed: / Admit/Disch: 01/25/23 12:39:00 - Institution: Case Times FTURO Entry 1 Patient Times In Room 01/25/23 13:35:00 Out Room 01/25/23 14:06:00 Procedure Times Start 01/25/23 13:40:00 Stop 01/25/23 14:01:00 Anesthesia Times Last Modified By: Jigar MCLEAN, Kinjal NINO 01/25/23 14:01:59 Case Attendance FTURO Entry 1 Entry 2 Entry 3 Case Attendee DIONY CHANDLER, Pino Kimball RN, CNOR, Oswaldo MORENO, Diana Layton Role Performed Surgeon - Primary Crt - Primary Scrub - Primary Time In 01/25/23 13:35:00 01/25/23 13:35:00 01/25/23 13:35:00 Time Out 01/25/23 14:06:00 01/25/23 14:06:00 01/25/23 14:06:00 Procedure SCROTAL/PERINEAL SCROTAL/PERINEAL SCROTAL/PERINEAL ABSCESS IandD(.) ABSCESS IandD(.) ABSCESS IandD(.) Comments Last Modified By: Jigar MCLEAN, BRADLEYOR, Jigar MCLEAN, BRADLEYOR, Jigar MCLEAN, MICA, Kinjal 01/25/23 Kinjal 01/25/23 Kinjal 01/25/23 14:02:00 14:02:00 14:02:00 Surgical Procedures FTURO Entry 1 Procedure Description Procedure SCROTAL/PERINEAL Modifiers . ABSCESS IandD Surgeon Description EXCISION OF SCROTAL CYST Primary Procedure Yes Primary Surgeon Pino VALDEZ MD Start 01/25/23 13:40:00 Stop 01/25/23 14:01:00 Anesthesia Type Local Surgical Service Urology Wound Class 4 - Dirty Last Modified By: MICA Kimball RN, Kinjal 01/25/23 14:02:03 General Case Data FTURO Pre-Care Text: Classifies surgical wound, implements aseptic technique, initiates traffic control Entry 1 Case Information OR URO 1 FT Case Level None Wound Class 4 - Dirty Specialty Urology Preop Diagnosis SCROTAL CYST Postop Same As Preop Yes Postop Diagnosis SCROTAL CYST Outcomes Met? Yes Last Modified By: MICA Kimball RN, Kinjal 01/25/23 13:50:35 Post-Care Text: The patient [...] MD, Time Out Complete 01/25/23 13:34:00 Participants Jigar MCLEAN, BRADLEYOR, Oswaldo Layton CST, Kimberly A Allergies Reviewed? Yes Allergies [...] MICA Kimball RN, Ruthann 01/25/23 14:02 Normal [facility] Main OR Preoperative Recordo n 01-25-2023 Main OR Preoperative Record Holding Area Document Type FTURO Summary Primary Physician: Pino VALDEZ MD Finalized Date/Time: 01/25/23 13:41:59 Pt. Name: JINNYMATEO./Sex: 1960 Male Med Rec #: [id number] Physician: Pino VALDEZ MD Financial #: [id number] Pt. Type: O Room/Bed: / Admit/Disch: 01/25/23 [...] No Pain Comment: na Skin Integrity Intact, [place], Warm, & Dry Vitals - EU Blood Pressure 146/95 Pulse 107 bpm Respirations 18 br/min SPO2 91 % RN Reviewed Yes Last Modified By: MICA Kimball RN, Ruthann 01/25/23 13:41:58 General Comments: temp:36.7 Finalized By: MICA Kimball RN, Ruthann Document Signatures Signed By: Domonique Mcleod LPN 01/25/23 13:01 MICA Kimball RN, Ruthann 01/25/23 13:42 Normal [facility] Operative Reporton Operative Report Patient: MATEO [...] a week to remove the sutures. Normal [facility] Comment on above: Result Comment: Elec tronically Signed By: Pino VALDEZ MD\.br\Date and Time Signed: 01/25/23 14:11 EST Patient [...] pain medication and antibiotics as directed Normal [facility] CT CHEST WO CONon 01-04-2023 CT [...] by: LEONOR MA Date: 2023-01-04 10:52 Normal [facility] CT CHEST WO CONon 10-07-2022 CT CHEST [...] by: LEONOR MA Date: 2022-10-07 16:05 Normal [facility] [place] [facility] ACID FAST SMEAR AND CXon Acid Fast Culture Negative Normal [facility] Comment on above: Result Comment: No a tomi fast bacilli isolated after 6 weeks. Performed By: #### U NEO, LIPID #### [facility] [place] [facility] [address] [place] [address] Dr. James Crowley Acid Fast Smear Negative Normal [facility] Comment on above: Performed By: #### U NEO, LIPID #### [facility] [place] [facility] [address] [place] [address] Dr. James Crowley [employer] Specimen Processing Concentration Normal [facility] [place] [facility] Comment on above: Performed By: #### U NEO, LIPID #### [facility] [place] [facility] [address] [place] [address] Dr. James Crowley FUNGAL AB QUANTITAIVE DOUBLE IMMUNODIFFUon 08-22-2022 Aspergillus flavus Negative Normal Neg:<1:1 [facility] Comment on above: Performed By: #### F UNGUYI #### [facility] [place] [facility] [address] [place] [address] Dr. James Corwley Aspergillus fumigatus Negative Normal Neg:<1:1 [facility] Comment on above: Performed By: #### F UNGUYI #### [facility] [place] [facility] [address] [place] [address] Dr. James Crowley Aspergillus niger Negative Normal Neg:<1:1 [facility] Comment on above: Performed By: #### F UNGUYI #### [facility] [place] [facility] [address] [place] [address] Dr. James Crowley Blastomyces Negative Normal Neg:<1:1 [facility] Comment on above: Performed By: #### F UNGUYI #### [facility] [place] [facility] [address] [place] [address] Dr. Yilan Crowley [place] B VIRUS ANTIBODIES on 08-21-2022 [place] B-1 Ab Negative Normal Neg:<1:8 [facility] Comment on above: Performed By: #### C OXSBV #### [facility] [place] [facility] [address] [address] [address] James Crowley [place] B-2 Ab Negative Normal Neg:<1:8 [facility] Comment on above: Performed By: #### C OXSBV #### [facility] [place] [facility] [address] [address] [address] James Crowley [place]xs[place]ie B-3 Ab Negative Normal Neg:<1:8 [facility] Comment on above: Performed By: #### C OXSBV #### [facility] [place] [facility] [address] [place] [address] Dr. James Crowley [place] B-4 Ab Negative Normal Neg:<1:8 [facility] Comment on above: Performed By: #### C OXSBV #### [facility] [place] [facility] [address] [place] [address] Dr. James Crowley [place] B-5 Ab Negative Normal Neg:<1:8 [facility] Comment on above: Performed By: #### C OXSBV #### [facility] [place] [facility] [address] [place] [address] Dr. James Crowley [place] B-6 Ab Negative Normal Neg:<1:8 [facility] Comment on above: Performed By: #### C OXSBV #### [facility] [place] [facility] [address] [address] [address] James Crowley HISTOPLASMA CAP AB QUANT DID on 08-21-2022 Histoplasma Mycelial CF Ab. Negative Normal Neg:<1:2 [facility] [place] [facility] Comment on above: Performed By: #### H ISTGAL #### [facility] [place] [facility] [address] [place] [address] Dr. James Crowley Histoplasma Yeast CF Ab Negative Normal Neg:<1:2 [facility] [place] [facility] Comment on above: Performed By: #### H ISTGAL #### [facility] [place] [facility] [address] [address] [address] James Crowley [place] A VIRUS AB IGMon 0 08-20-2022 [place] A16 IgM Negative Normal Neg:<1:10 [facility] Comment on above: Performed By: #### C OXSIGM #### [facility] [place] [facility] [address] [address] [address] James Crowley [place] A24 IgM Negative Normal Neg:<1:10 [facility] Comment on above: Performed By: #### C OXSIGM #### [facility] [place] [facility] [address] [place] [address] Dr. James Crowley [place] A7 IgM Negative Normal Neg:<1:10 [facility] Comment on above: Performed By: #### C OXSIGM #### [facility] [place] [facility] [address] [place] [address] Dr. James Crowley [place] A9 IgM Negative Normal Neg:<1:10 [facility] Comment on above: Performed By: #### C OXSIGM #### [facility] [place] [facility] [address] [place] [address] Dr. James Crowley HISTOPLASMA GALACTOMANNAN AG URINEon 08-20-2022 Histoplasma Gal'shwetha Ag <0.5 Normal <0.5 ng/mL [facility] Comment on above: Performed By: #### H ISTGAL #### [facility] [place] [facility] [address] [place] [address] Dr. James Crowley QUANTIFERON TB GOLD PLUSon 0 08-20-2022 QuantiFERON Criteria Comment Normal [facility] [place] [facility] Comment on above: Result Comment: Vick tiFERON-TB [...] test. Performed By: #### Q NTTB #### [facility] [place] [facility] [address] [place] [address] Dr. James Crowley QuantiFERON Incubation Incubation performed. Normal [facility] [place] [facility] Comment on above: Performed By: #### Q NTTB #### [facility] [place] [facility] [address] [address] [address] James Crowley QuantiFERON Mitogen Value >10.00 Normal [facility] Comment on above: Performed By: #### Q NTTB #### [facility] [place] [facility] [address] [place] [address] Dr. James Crowley QuantiFERON Nil Value 0.04 IU/mL Normal [facility] Comment on above: Performed By: #### Q NTTB #### [facility] [place] [facility] [address] [place] [address] Dr. James Crowley QuantiFERON TB1 Ag Value 0.04 IU/mL Normal [facility] Comment on above: Performed By: #### Q NTTB #### [facility] [place] [facility] [address] [place] [address] Dr. James Crowley QuantiFERON TB2 Ag Value 0.05 IU/mL Normal [facility] Comment on above: Performed By: #### Q NTTB #### [facility] [place] [facility] [address] [place] [address] Dr. James Crowley QuantiFERON-TB Gold Plus Negative Normal Negative [facility] Comment on above: Result Comment: No r esponse to M tuberculosis antigens detected. Infection with M tuberculosis is unlikely, but high risk individuals should be considered for additional testing (ATS/IDSA/CDC Clinical Practice Guidelines, 2017). The reference range is an Antigen minus Nil result of <0.35 IU/mL. Chemiluminescence immunoassay methodology Performed By: #### Q NTTB #### [facility] [place] [facility] [address] [place] [address] Dr. James Crowley CREATININEon 08-18-2022 Creatinine [Mass/Vol] 0.97 mg/dL Normal 0.70-1.30 [facility] [place] [facility] Comment on above: Performed By: #### H ISTGAL #### [facility] [place] [facility] [address] [place] [address] Dr. James Crowley EGFR-AF ALGERIAN >60 Normal >=60 [facility] Comment on above: Performed By: #### H ISTGAL #### [facility] [place] [facility] [address] [address] [address] James Crowley EGFR-NON AF ALGERIAN >60 Normal >=60 [facility] [place] [facility] Comment on above: Performed By: #### H ISTGAL #### [facility] [place] [facility] [address] CHEST W CONon [...] LEONOR MA Date: 2022-08-18 10:27 Normal [facility] [place] [facility] CULTURE SPUTUMon 08-18-2022 CULTURE SPUTUM Isolate 1 Haemophilus parainfluenzae Moderate growth of Normal [facility] [place] [facility] Comment on above: Result Comment: Beta -Lactamase: Negative Performed By: #### H ISTGAL #### [facility] [place] [facility] [address] [address] [address] James Crowley SPUTUM GRAM STAINon 08-18-20 22 COMMENTS Normal [facility] [place] [facility] Comment on above: Performed By: #### H ISTGAL #### [facility] [place] [facility] [address] [address] [address] James Crowley DIPHTHEROIDS Normal [facility] [place] [facility] Comment on above: Performed By: #### H ISTGAL #### [facility] [place] [facility] [address] [address] [address] James Crowley EPITHELIALS <25 Normal [facility] [place] [facility] Comment on above: Performed By: #### H ISTGAL #### [facility] [address] [address] [address] James Crowley FUNGAL ELEMENTS Normal [facility] Comment on above: Performed By: #### H ISTGAL #### [facility] [address] [address] [address] James Crowley GRAM NEG BACILLI [facility] Comment on above: Performed By: #### H ISTGAL #### [facility] [address] [address] [address] aJmes Crowley GRAM NEG DIPPLOCOCCI FEW Normal [facility] Comment on above: Performed By: #### H ISTGAL #### [facility] [address] [address] [address] James Crowley GRAM POS BACILLI Normal [facility] Comment on above: Performed By: #### H ISTGAL #### [facility] [address] [address] [address] James Crowley GRAM POSITIVE COCCI FEW Normal [facility] Comment on above: Performed By: #### H ISTGAL #### [facility] [address] [address] [address] James Crowley WBC (Bld) [#/Vol] 10*3/uL Normal [facility] Comment on above: Performed By: #### H ISTGAL #### [facility] [address] [address] [address] James Crowley XR RIBS RT PA James 2 XR RIBS RT PA CH EXAMINATION: [...] [place] CISNEROS Date: 2022-08-12 13:02 Normal [facility] Covid-19 PCR (CVDTBH)on SARS-CoV-2 (COVID-19) RNA SOURAV+probe Ql (Unsp spec) Not detected Normal NOT DETECTED [facility] Comment on above: Result Comment: When diagnostic [...] for this test is supported by the Child Care Lead Teacher of Health and Human Service's declaration that [...] longer be used). Performed By: #### C VDTB #### [facility] [address] [place] [address] Dr. James Rey 03-24-2021 L Specimen: [id number] Received: 03/24/21 Status: BOSTON Nix Num: [id number] Spec Type: Surgical Subm Dr: Bryan Quick MD Tissues: A Skin-Other than Cyst, tag, debridement or plastic repair (LT NASAL DORSUM) Procedures: HE Stain, Gross/Micro L4 Patient Age/Sex Location Account Attending Physician Mateo Stearns 60/Oj ID [id number] Bryan Quick MD SPEC NUM: RECD: 03/24/21 STATUS: BOSTON LEONKeo NUM: [id number] FRANCISCA: 03/24/[address] [facility] [address]: Bryan Quick MD ENTERED: 03/24/[address]: MYAH TYPE: Surgical DEPT: S ORDERED: HE Stain, [...] microscopic findings support the above pathologic diagnosis. [id number] Specimen: [id number] Received: 03/24/21 Status: BOSTON Nix Num: [id number] Spec Type: Surgical Subm Dr: Bryan Quick MD Tissues: A Skin-Other than Cyst, tag, debridement or plastic repair (LT NASAL DORSUM) Procedures: HE Stain, Gross/Micro L4 Patient: Mateo Stearns [id number] (Continued) Signed (signature on file) Cindy Garcia MD 03/25/21 1824 [facility] Vital Signs Date Time Vital Sign Value Performing Clinician Dom jesus 06-06-2023 10:36-0400 Blood Pressure Location [employer] [facility] 06-06-2023 10:36-0400 Diastolic blood pressure 76 mm[Hg] Pino VALDEZ [facility] 06-06-2023 10:36-0400 Heart rate 72 /min Pino VALDEZ [facility] 06-06-2023 10:36-0400 Respiratory rate 16 /min Pino VALDEZ [facility] 06-06-2023 10:36-0400 Systolic blood pressure 130 mm[Hg] Pino VALDEZ [facility] 02-07-2023 12:42-0400 Blood Pressure Location Pino VALDEZ [facility] 02-07-2023 12:42-0400 Diastolic blood pressure 77 mm[Hg] Pino VALDEZ [facility] 02-07-2023 12:42-0400 Heart rate 74 /min Pino VALDEZ [facility] 02-07-2023 12:42-0400 Systolic blood pressure 138 mm[Hg] Pino VALDEZ [facility] 05-17-2022 12:56-0400 Blood Pressure Location Pino VALDEZ [facility] 05-17-2022 12:56-0400 Diastolic blood pressure 87 mm[Hg] Pinomichelle VALDEZ [facility] 05-17-2022 12:56-0400 Heart rate 79 /min Pinomichelle VALDEZ [facility] 05-17-2022 12:56-0400 Respiratory rate 16 /min Pino VALDEZ [facility] 05-17-2022 12:56-0400 Systolic blood pressure 139 mm[Hg] Pino VALDEZ [facility] [employer] Encounters Encounter Date Encounter Type Care Provider Facility Start: 05-21-2024 ambulatory Pino VALDEZ [facility]ili [facility] Start: 01-02-2024 End: 01-03-2024 ambulatory Pino VALDEZ Facility:[facility] Start: 07-22-2023 ambulatory Pino VALDEZ Facili ty:[facility] Start: 06-06-2023 End: 06-07-2023 ambulatory Pinomichelle VALDEZ Facility:[facility] [place] Start: 06-06-2023 End: 06-06-2023 Patient encounter procedure Pino VALDEZ [facility] Start: 05-17-2023 End: 05-18-2023 ambulatory Pino VALDEZ Facility:[facility] Start: 05-17-2023 End: 05-17-2023 Patient encounter procedure Pion VALDEZ [facility] Start: 04-12-2023 End: 04-13-2023 ambulatory PROMISE FELTON Facility:[facility] Start: 04-08-2023 End: 04-09-[address] COMMISSIONER TANYA AICSUKHWINDER Facility: Start: 02-07-2023 End: 02-08-2023 ambulatory Pino R VALDEZ Facility:[facility] Start: 02-07-2023 End: 02-07-2023 Patient encounter procedure Pino VALDEZ [facility] Start: 01-25-2023 End: 01-26-2023 ambulatory Pino Reina VALDEZ Facility:[facility] Start: 01-04-2023 End: 01-05-[address] COMMISSIONER TANYA FELTON Facility:[facility] Start: 10-07-2022 End: 10-08-[address] COMMISSIONER TANYA PURNIMA Facility:[facility] Start: 08-18-2022 End: 08-19-2022 ambulatory ROBERTO ALVES . Facility:[facility] Start: 08-12-2022 End: 08-12-[address] ELSA RAE . Facility:[facility] Start: 07-20-2022 End: 08-11-2022 Pre-admission assessment Pino VALDEZ [facility] Start: 05-17-2022 End: 06-16-2022 Pre-admission assessment Pino Latosha DIONY [facility] Start: 05-17-2022 End: 05-17-2022 Patient encounter procedure Pino Latosha DIONY [facility] Start: 05-03-2022 End: 05-03-2022 ambulatory ROBERTO ALVES . Facility:[facility] Start: 03-24-2021 End: 03-24-2021 Departed Referred Bryan Quick Work Phone: [facility] [place] Procedures Date Procedure Procedure Detail Performing Clinician Start: 04-08-2023 PSA screening PROMISE FELTON Comment on above: Performed By: #### P [facility] #### [facility] [address] [address] [address] James Crowley Colonoscopy Pino VALDEZ Procedure on foot Pino LEON Repair of hip Pino VALDEZ Comment on above: Both hips Both hips Transrectal needle b iopsy of prostate Pino VALDEZ Immunizations Immunization Date Immunization Notes Care Provider Jenni dominguez 09-25-2022 SARS-CoV-2 (COVID-19 ) mRNAMUL.[id number] Pino VALDEZ [facility] 05-26-2021 SARS-CoV-2 (COVID-19 ) mRNA BNT-162b2 vax Pino VALDEZ [facility] 05-05-2021 SARS-CoV-2 (COVID-19 ) mRNA BNT-162b2 vax Pino VALDEZ [facility] 03-11-2021 tetanus toxoid, redu liyah diphtheria toxoid, and acellular pertussis vaccine, adsorbed Pino VALDEZ [facility] Payers Date Payer Category Payer Medicaid [id number] 1961 Medicare [id number] 1961 Unknown [id number] 1960 Unknown [id number] 2.16.84 0.1.650307.3.579.2.593 1960 Unknown [id number] 2.16.84 0.1.831643.3.579.2.593 1958 Unknown [id number] 2.16.84 0.1.243784.3.579.2.593 1958 Unknown [id number] 2.16.84 0.1.222918.3.579.2.593 1958 Unknown [id number] 2.16.84 0.1.293705.3.579.2.593 1958 Unknown [id number] 2.16.84 0.1.864118.3.579.2.593 1958 Unknown [id number] 2.16.84 0.1.691665.3.579.2.593 1958 Unknown [id number] 2.16.84 0.1.950437.3.579.2.593 1958 Unknown [id number] 2.16.8 40.1.448007.3.579.2.727 1958 Unknown [id number] 2.16.8 40.1.761188.3.579.2.727 1958 Unknown [id number] 2.16.8 40.1.717524.3.579.2.727 1958 Unknown [id number] 2.16.8 40.1.556889.3.579.2.727 1958 Unknown [id number] 2.16.8 40.1.150987.3.579.2.727 1958 Unknown [id number] 2.16.8 40.1.272580.3.579.2.727 1960 Unknown [id number] 2.16.8 40.1.756933.3.579.2.727 Self-pay Self Pay [id number] Social History Date Type Detail Facility Tobacco smoking stat [facility] Unknown if ever smoked [facility] Start: 1960 [facility] Start: 05-17-2022 End: 02-07-2023 Tobacco smoking status Ex-smoker (finding) [facility] Sex Assigned At Male [facility] Tobacco smoking status Never [facility] Goals Date Patient Goal Desired Activity /State Functional Status Date Assessment Result Facility 06-06-2023 Functional Status N/A [facility] 05-17-2023 Functional Status N/A [facility] 02-07-2023 Functional Status N/A [facility] 08-05-2022 N/A [facility] 06-11-2022 Functional Status N/A [facility] 05-17-2022 Functional Status N/A [facility] Clinical Notes 05-17-2022 to 06-06-2023 Note Date [...] under a microscope. This is called the Kulpm[place] score and the total score can range from 6 10, indicating how likely it is that the cancer will spread (metastasize) to other parts of the body. The higher the score, the greater the likelihood that the cancer will spread. Brenden 6 or lower: This indicates that the cancer cells look similar to normal prostate cells (well differentiated). Brenden 7: This indicates that the cancer cells [...] stress of having cancer. General instructions Take vafq-tjp-yupapwl and prescription medicines only as told by your health care provider. If you have to go to the hospital, notify your cancer specialist (oncologist). Keep all follow-up visits. This is important. Where to find more information [place] [employer]: www.cancer.org [place] Society of Clinical Oncology: www.cancer.net National Cancer Hazard: www.cancer.gov Contact a health care provider if: [...] provider. Document Revised: 02/10/2022 Document Reviewed: 02/10/2022 [employer] Patient Education 2022 ExtendEvent. Follow Up Care 04/27/2023 15:15:09 With:DIONY CHANDLER, Pino Reina, URL Address: [facility] [address] , [place] [address]- [phone] When:Within 6 Month(s) Comments:PSA and ANNE-MARIE [facility] 05-17-2023 Note [id number]#[id number]:127 [facility] 05-17-2023 Hospital Discharg e instructions Patient [...] for your post-operative appointment in 1-2 weeks [phone] or [phone] Follow Up Care 04/27/2023 15:25:07 With:Pino VALDEZ Address: [facility] [address] , [place] [address]- Business (1) When: Unknown Comments:Keep scheduled appointment [facility] 02-07-2023 Hospital Discharg e instructions Patient Education [...] including BRCA1 or BRCA2 gene mutations or Gsos syndrome. You have symptoms of prostate cancer, [...] if anything looks unusual. Men with a vgkigq-bwta-elzoaq risk for skin cancer may want to see a property specialist (leg breaker) for an annual body check. Where to find more information National Cancer Hazard: https://www.cancer.gov/about-ca ncer/screening Centers for Disease Control and Prevention: https://www.cdc.gov/cancer/dcpc /prevention/screening.htm [place] [employer]: https://www.cancer.org/latest-n ews/2-gmoytz-gjhulodps-tests-fo r-men.html Contact a health care provider if: [...] 08/11/2017 Document Revised: 08/03/2019 Document Reviewed: 08/11/2017 [employer] Patient Education 2020 ExtendEvent. Follow Up Care 12/10/2022 10:33:39 With:DIONY CHANDLER, Pino Reina, URL Address: [facility] [address], [place] [address]- When: Unknown [facility] 01-25-2023 Note [id number]:127 [facility] 05-17-2022 Hospital Discharg e instructions Patient Education 05/17/2022 13:40:29 Epidermal Cyst, Rjyk-qq-Oivv Epidermal Cyst An epidermal cyst is a [...] yourself. Follow these instructions at home: Take wsur-rrt-wkftxzu and prescription medicines only as told by [...] the cyst, or to remove it. Take gyhk-umf-krofwrn and prescription medicines only as told by [...] 12/22/2005 Document Revised: 03/06/2020 Document Reviewed: 08/23/2019 [employer] Patient Education 2020 ExtendEvent. 04/19/2022 08:23:29 Testicular Self-Exam Testicular Self-Exam A [...] 02/20/2002 Document Revised: 03/06/2020 Document Reviewed: 10/10/2017 [employer] Patient Education 2020 ExtendEvent. Follow Up Care 03/17/2022 10:53:14 With:Pino VALDEZ MD, URL Address: [facility] [address], [place] [address]- When: Unknown [facility] Evaluation + Plan note Future Appointments Appointment Date:06/08/2022 08:45:00 AM Scheduled Provider: Location:[facility] Appointment Type:Urology CALL PAT FT Appointment Date:06/15/2022 09:00:00 AM Scheduled Provider: Location:[facility] Appointment Type:Urology FT [facility] Evaluation + Plan note Future Appointments Appointment Date:08/23/2022 12:30:00 PM Scheduled Provider:Pino VALDEZ MD Location:[facility] Appointment Type:URO Office Visit [facility] Evaluation + Plan note Future Appointments Appointment Date:06/06/2023 09:45:00 AM Scheduled Provider:Pino VALDEZ MD Location:[facility] Appointment Type:URO Office Visit Diagnostic Tests PendingProstate Histology ([facility]) 05/17/23 [facility] Evaluation + Plan note Future Appointments Appointment Date:12/09/2023 10:45:00 AM Scheduled Provider:Pino VALDEZ MD Location:[facility] Appointment Type:URO Office Visit Diagnostic Tests PendingPSA Total 06/06/23 [facility] Evaluation note No Assessments Infor mation Available [facility] Hospital course Narrative No data available for this section [facility] Hospital Discharge instructions No data available for this section [facility] note No data available for this section [facility] Summary Purpose Family History No Family History Records FoundNo Family History Records FoundNo Family History Records Found Advance Directives No Advanced Directives Records FoundNo Advanced Directives Records FoundNo Advanced Directives Records Found Additional Source Comments (unrecognized sect ion and content) No Status Records FoundNo Status Records FoundNo Status Records Found INFORMATION SOURCE (unrecogn ized section and content) DATE CREATED AUTHOR 04/01/2021 [facility] DATE CREATED AUTHOR AUTHOR'S ORGANIZ ATION 04/13/2023 [facility] DATE CREATED AUTHOR AUTHOR'S ORGANIZ ATION 01/03/2024 [facility] Care Team (unrecognized sect ion and content) Personnel Name: TANYA FELTON CNP Address: [address] [place] [address] Personnel Name: TANYA FELTON CNP Address: [address] [place] [address] [place] Personnel Name: TANYA FELTON CNP Address: [address] [place] [address] Personnel Name: TANYA FELTON CNP Address: Address: [address] [place] [address] Personnel Name: TANYA FELTON CNP Address: Address: [address] [place] [address] Personnel Name: TANYA FELTON CNP Address: Address: [address] [place] [address] FOR RECORDS PERTAINING TO PATIENTS WHO ARE [...] BE BASED ON THE PRIMARY CLINICAL RECORDS. [facility] provides no warranty or guarantee of the accuracy or completeness of information in this document.
--- NOTE | 2024-01-05 16:38 | ECG_ITS ---
[facility] Test Date: 2024-01-05 Pat Name: MATEO STEARNS Department: Room: - Gender: Male Die Sinker: : 1960 Requested By: TANYA FELTON Order Number: [id number] Reading MD: DOYLE LOMELI Measurements Intervals [place] Rate: 92 P: 70 NC: 128 QRS: 64 QRSD: 92 T: 270 QT: 310 QTc: 360 Interpretive Statements 1100 Sinus rhythm 4068 Nonspecific Twave abnormality 9130 borderline ECG Electronically Signed On 01-06-2024 6:49:28 EST by DOYLE LOMELI
--- NOTE | 2024-01-05 16:43 | ED_ITS ---
HPI - SOB/Dyspnea General Chief Complaint: Shortness of Breath/Dyspnea Stated Complaint: Shortness of Breath Time Seen by Provider: 01/05/24 16:29 Source: patient Mode of arrival: Wheelchair Limitations: no limitations History of Present Illness HPI Narrative: Patient presents with increased shortness of breath and reddish brown sputum over the last 2 days. He has home O2 to use as needed . He woke around 4am with increased shortness of breath and pain along the right rib cage made worse with coughing and movement. His home O2 sat dropped to 89% on 2LPM NC. No relief with his home inhalers. No chest pain. No GI or symptoms. Hx COPD and sees Dr Shea. Kathie Sánchez is his PCP. Related Data Home Medications Medication Instructions Recorded Confirmed albuterol sulfate 90 mcg/actuation 1 inh inhalation Q4H PRN shortness 01/05/24 01/05/24 aerosol inhaler of breath or wheezing aspirin 81 mg tablet,delayed 81 mg PO DAILY 01/05/24 01/05/24 release budesonide-formoterol HFA 160 2 puff inhalation BID 01/05/24 01/05/24 mcg-4.5 mcg/actuation aerosol inhaler diltiazem HCl 180 mg 180 mg PO DAILY 01/05/24 01/05/24 capsule,extended release 24 hr, controlled pantoprazole 40 mg tablet,delayed 40 mg PO DAILY 01/05/24 01/05/24 release prednisone 10 mg tablet 10 mg PO DAILY 01/05/24 01/05/24 roflumilast 500 mcg tablet 500 mcg PO DAILY 01/05/24 01/05/24 tiotropium bromide 2.5 2 inh inhalation DAILY PRN 01/05/24 01/05/24 mcg/actuation mist for inhalation shortness of breath (Spiriva Respimat) Previous Rx's Medication Instructions Recorded levofloxacin 750 mg tablet 750 mg PO DAILY 4 days #4 tabs 01/05/24 prednisone 20 mg tablet 40 mg (2 x 20 mg) PO DAILY 5 days 01/05/24 #10 tabs Allergies Allergy/AdvReac Type Severity Reaction Status Date / Time No Known Drug Allergies Allergy Verified 01/05/24 16:38 Exam Narrative Exam Narrative: Nurses notes and vital signs reviewed and patient IS hypoxic - only 83% on RA - he was placed on 4LPM NC and sat increased to 96%. afebrile General: tachypneic with frequent cough producing reddish brown sputum. Skin: Warm, dry, no pallor noted. No rash. Head: Normocephalic, atraumatic. Neck: Supple, non-tender. No cervical lymphadenopathy. Eye: Pupils are equal, round and EOMI. No scleral icterus. Ears, Nose, Mouth, and Throat: Oral mucosa is moist Cardiovascular: Tachycardia. Respiratory: Accessory muscle use. Tachypnea but no respiratory distress. Frequent productive cough. Lungs with decreased air exchange globally. Expiratory wheezing and scattered rhonchi Musculoskeletal: normal ROM, no calf or popliteal tenderness, no lower extremity edema/swelling GI: Abdomen is soft, non-distended. Normal bowel sounds. No tenderness to palpation. No rebound, guarding, or rigidity noted. Neurological: A&O x4. No cranial nerve dysfunction observed. No truncal ataxia. Moves all extremities. Sensation intact. Psychiatric: Cooperative and interactive. Normal mood and affect. Constitutional Vital Signs, click to edit/add: Last Vital Signs Temp 99.4 F 01/05/24 16:29 Pulse 98 H 01/05/24 17:20 Resp 19 01/05/24 17:20 BP 136/73 01/05/24 16:33 Pulse Ox 93 L 01/05/24 17:21 O2 Del Method Nasal Cannula 01/05/24 17:21 O2 Flow Rate 3 01/05/24 17:21 Course Vital Signs Vital signs: Vital Signs Temperature 99.4 F 01/05/24 16:29 Pulse Rate 102 H 01/05/24 16:29 Respiratory Rate 26 H 01/05/24 16:29 Blood Pressure 136/73 01/05/24 16:29 Pulse Oximetry 83 L 01/05/24 16:29 Oxygen Delivery Method Room Air 01/05/24 16:29 Temperature 99.4 F 01/05/24 16:29 Pulse Rate 98 H 01/05/24 17:20 Respiratory Rate 19 01/05/24 17:20 Blood Pressure 136/73 01/05/24 16:33 Pulse Oximetry 93 L 01/05/24 17:21 Oxygen Delivery Method Nasal Cannula 01/05/24 17:21 Oxygen Delivery Flow Rate 3 01/05/24 17:21 MDM - SOB/Dyspnea MDM Narrative Medical decision making narrative: Patient was placed on rn cardiac rehab and EKG obtained. Blood drawn and sent for evaluation, including lactate, procalcitonin and blood cultures per sepsis protocol. He was sent for CT angio chest. Patient ordered to receive IV Solumedrol and Duoneb treatment. White blood cell count 23.3 with no left shift. Lactate is normal. Procalcitonin is elevated at 2.44. Swabs for COVID and influenza were negative. He was ordered to receive IV Levaquin. CMP notable for slightly elevated BUN at 23, elevated total bilirubin at 1.6 with direct bilirubin of 0.3. CTA chest = right lung pneumonia most prominently in the right middle lobe. No pulmonary embolism. The patient was informed of results and discharged home with prescription for additional Levaquin, course of 40mg daily prednisone - up from his daily dose of 10mg - and recommendation to return to the emergency department if he worsened. he will call Dr Shea tomorrow and discuss his progress with treatment and any necessary out-patient follow up. Lab Data Attestation: I reviewed the patient's lab results. Labs: Lab Results 01/05/24 01/05/24 Range/Units 16:44 16:45 WBC 23.3 H (4.0-11.0) 10^3/uL RBC 4.94 (4.70-6.10) 10^6/uL Hgb 14.6 (14.0-18.0) g/dL Hct 44.4 (42.0-54.0) % MCV 89.9 (80.0-94.0) fL MCH 29.6 (25.9-34.0) pg MCHC 32.9 (29.9-35.2) g/dL RDW 14.2 (11.0-15.0) % Plt Count 288 (150-450) 10^3/uL MPV 8.9 L (9.5-13.5) fL Seg Neuts % (Manual) 81.0 Band Neutrophils % 5.0 (0-5) % Lymphocytes % (Manual) 10.0 L (20.5-60.0) % Monocytes % (Manual) 4.0 (1.7-12.0) % Eosinophils % (Manual) 0.0 L (0.9-7.0) % Basophils % (Manual) 0.0 L (0.2-2.0) % Neutrophils # (Manual) 18.87 H (1.4-6.5) 10^3/uL Band Neutrophils # 1.2 H (0.0-0.3) 10^3/uL Lymphocytes # (Manual) 2.33 (1.20-3.80) 10^3/uL Monocytes # (Manual) 0.93 H (0.30-0.80) 10^3/uL Eosinophils # (Manual) 0.00 (0.00-0.70) 10^3/uL Basophils # (Manual) 0.00 (0.00-0.10) 10^3/uL Sodium 141 (136-145) mmol/L Potassium 3.8 (3.5-5.1) mmol/L Chloride 104 (98-107) mmol/L Carbon Dioxide 22.8 (21.0-32.0) mmol/L Anion Gap 18.0 BUN 23.0 H (7.0-18.0) mg/dL Creatinine 0.99 (0.70-1.30) mg/dL Est GFR ( Amer) >60 (>=60) Est GFR (Non-Af Amer) >60 (>=60) BUN/Creatinine Ratio 23.2 Glucose 121 H (74-106) mg/dL Lactate 1.5 (0.4-2.0) mmol/L Calcium 9.2 (8.5-10.1) mg/dL Total Bilirubin 1.6 H (0.2-1.0) mg/dL Direct Bilirubin 0.3 H (0.0-0.2) mg/dL AST 17 (15-37) U/L ALT 20 (16-63) U/L Alkaline Phosphatase 73 (46-116) U/L Troponin I High Sens 8.6 (4.0-76.1) pg/mL NT-Pro-B Natriuret Pep 264.0 (<=900.0) pg/mL Total Protein 7.4 (6.4-8.2) g/dL Albumin 3.5 (3.4-5.0) g/dL Globulin 3.9 g/dL Albumin/Globulin Ratio 0.9 Procalcitonin 2.44 H (0.00-0.50) ng/mL Influenza Type A Ag Negative Influenza Type B Ag Negative SARS-CoV-2 Ag (CV2AG) Negative (NEGATIVE) Imaging Data CT scan - chest: Radiologist's impression: ITS Impressions Chest CTA 01/05/24 17:51 IMPRESSION: 1. No pulmonary embolism. 2. Findings compatible with pneumonia in the right lung, most prominently in the right middle lobe. Recommend follow-up chest CT in 3 months after treatment to exclude underlying malignancy. 3. Saccular thoracic aortic aneurysm versus penetrating atheromatous ulcer. 4. Upper abdominal penetrating atheromatous ulcer. 5. Emphysema. Electronically authenticated by: KELBY LOYD Date: 01/05/2024 18:12 ECG Data Attestation: I personally reviewed and interpreted this ECG as follows: Interpretation: EKG interpretation: Emergency Department physician interpretation. Normal sin us rhythm at 92bpm. Normal axis, normal intervals and non specific T wave changes. No ST segment elevation or depression. Discharge Plan Discharge Chief Complaint: Shortness of Breath/Dyspnea Clinical Impression: Acute infective exacerbation of chronic obstructive airway disease, Community acquired pneumonia Patient Disposition: Home, Self-Care Time of Disposition Decision: 18:24 Prescriptions / Home Meds: New levofloxacin 750 mg tablet 750 mg PO DAILY 4 Days Qty: 4 0RF prednisone 20 mg tablet 40 mg PO DAILY 5 Days Qty: 10 0RF No Action albuterol sulfate 90 mcg/actuation HFA aerosol inhaler 1 inh INHALATION Q4H PRN (Reason: shortness of breath or wheezing) aspirin 81 mg tablet,delayed release (DR/EC) 81 mg PO DAILY budesonide-formoterol 160-4.5 mcg/actuation HFA aerosol inhaler 2 puff INHALATION BID diltiazem HCl 180 mg capsule,ext.rel 24h degradable 180 mg PO DAILY pantoprazole 40 mg tablet,delayed release (DR/EC) 40 mg PO DAILY prednisone 10 mg tablet 10 mg PO DAILY roflumilast 500 mcg tablet 500 mcg PO DAILY Spiriva Respimat 2.5 mcg/actuation mist 2 inh INHALATION DAILY PRN (Reason: shortness of breath) Instructions: COPD (Chronic Obstructive Pulmonary Disease) (ED), Community Acquired Pneumonia (ED) Stand Alone Forms: Portal Instructions Referrals: Kathie Sánchez [facility] OPERATOR [Primary Care Provider] - 1 week
[2024-01-05 16:56] LABS: Hematocrit 44.4 % (42.0-54.0); Hemoglobin 14.6 g/dL (14.0-18.0); Mean Corpuscular HGB Conc 32.9 g/dL (29.9-35.2); Mean Corpuscular Hemoglobin 29.6 pg (25.9-34.0); Mean Corpuscular Volume 89.9 fL (80.0-94.0); Mean Platelet Volume 8.9 fL (9.5-13.5); Platelet Count 288 10^3/uL (150-450); Red Blood Count 4.94 10^6/uL (4.70-6.10); Red Cell Distribution Width 14.2 % (11.0-15.0); White Blood Count 23.3 10^3/uL (4.0-11.0)
[2024-01-05] MEDS: METHYLPREDNISOLONE SOD SUCC PF 125 MG/2 ML VIAL IVP (17:00)
[2024-01-05 17:12] LABS: Influenza Virus A Antigen Negative; Influenza Virus B Antigen Negative; Internal Control Within Normal Limits; SARS-CoV-2 Ag NEGATIVE (NEGATIVE)
[2024-01-05 17:12] LABS: Band Neutrophils Absolute 1.2 10^3/uL (0.0-0.3); Lymphocytes Absolute Manual 2.33 10^3/uL (1.20-3.80); Monocytes Absolute Manual 0.93 10^3/uL (0.30-0.80); Segmented Neut Absolute Manual 18.87 10^3/uL (1.4-6.5)
[2024-01-05 17:17] LABS: Alanine Aminotransferase 20 U/L (16-63); Albumin Globulin Ratio 0.9; Albumin Level 3.5 g/dL (3.4-5.0); Alkaline Phosphatase 73 U/L (46-116); Aspartate Amino Transferase 17 U/L (15-37); Bilirubin Direct 0.3 mg/dL (0.0-0.2); Bilirubin Total 1.6 mg/dL (0.2-1.0); Globulin 3.9 g/dL; Total Protein 7.4 g/dL (6.4-8.2)
[2024-01-05 17:22] LABS: Lactate/Lactic Acid 1.5 mmol/L (0.4-2.0)
[2024-01-05 17:27] LABS: BUN Creatinine Ratio 23.2; Calcium 9.2 mg/dL (8.5-10.1); Carbon Dioxide 22.8 mmol/L (21.0-32.0); Chloride 104 mmol/L (98-107); Estimated GFR (African America >60 (>=60); Estimated GFR (Non-African Ame >60 (>=60); Glucose 121 mg/dL (74-106); PROCALCITONIN 2.44 ng/mL (0.00-0.50); Potassium 3.8 mmol/L (3.5-5.1); Sodium 141 mmol/L (136-145); Troponin I High Sensitivity 8.6 pg/mL (4.0-76.1)
--- NOTE | 2024-01-05 17:51 | CT_ITS ---
[address] [address] Patient Name: MATEO STEARNS MRN: [id number] date: 1960 Sex: M Assigned Patient Location: ER Current Patient Location: Accession/Order Number: [id number] Exam Date: 01/05/2024 17:40 Report Date: 01/05/2024 18:12 At the request of: ELSA RAE Procedure: CT angio chest EXAM: CT pulmonary angiogram of the chest using 100 mL of IV iodinated contrast. 3-D imaging was performed. Dose reduction technique used: Automated exposure control and/or adjustment of the mA and/or kV according to patient size and/or use of iterative reconstruction technique. REASON FOR EXAM: hemoptysis, shortness of breath COMPARISON: CT scan dated 04/08/2023 FINDINGS: No pulmonary emboli. No aortic dissection. No pneumothorax. No pleural effusion. No acute fractures. No definite lymphadenopathy in the chest. Right middle lobe airspace opacities and consolidation. Small amount of patchy opacities in the right lung base medially, these have a somewhat nodular appearance. Scattered mucus plugging in the right lung. Saccular aneurysm versus penetrating atheromatous ulcer at the junction of the distal aortic arch and proximal descending thoracic aorta, maximal aortic caliber at this level measures 3.6 cm. Upper abdominal aorta penetrating atheromatous ulcer. Coronary atherosclerotic calcifications. Centrilobular emphysema in both lungs. Remainder unremarkable. CT/CT angio chest IMPRESSION: 1. No pulmonary embolism. 2. Findings compatible with pneumonia in the right lung, most prominently in the right middle lobe. Recommend follow-up chest CT in 3 months after treatment to exclude underlying malignancy. 3. Saccular thoracic aortic aneurysm versus penetrating atheromatous ulcer. 4. Upper abdominal penetrating atheromatous ulcer. 5. Emphysema. Electronically authenticated by: KELBY LYOD Date: 01/05/2024 18:12
[2024-01-05] MEDS: LEVOFLOXACIN IN DEXTROSE 5 % 750 MG/150 ML IV.SOLN 100 MG IV (18:04)
[2024-01-05] MEDS: IPRATROPIUM/ALBUTEROL SULFATE 3 ML AMPUL.NEB IH (18:22)
== END 2024-01-05 18:57 | disposition home or self-care (01) ==
PROVIDERS: Emergency Provider Emergency Medicine; PCP Nurse Practitioner
DX: J18.9 Pneumonia, unspecified organism (principal); J44.0 Chronic obstructive pulmonary disease with (acute) lower respiratory infection; J44.1 Chronic obstructive pulmonary disease with (acute) exacerbation; Z79.82 Long term (current) use of aspirin; Z79.51 Long term (current) use of inhaled steroids; Z79.899 Other long term (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 therapy
CPT/HCPCS: 36415; 71275; 80048; 80076; 83605; 83880; 84145; 84484; 85007; 85027; 87040; 87804; 87811; 93005; 94640; 96374; 96375; 99285; J2930; Q9967

== ENCOUNTER 2024-02-28 11:38 | Outpatient (OUT) | payer MEDICARE, MEDICAID, SELFPAY ==
--- OUTSIDE RECORDS SUMMARY | 2024-02-28 11:56 | XMS_ITS | CCD ---
Author Organization [facility] Care Team Providers Care Compounder Name Role Phone Bryan Quick Attending Provider KATHIE SÁNCHEZ Primary Care Physician AICHHOLZ, POWER MACHINE OPERATOR KATHIE Primary Care Unavailable DR LEONOR MA Consulting Unavailable SAMSA ., ROBERTO Admitting Unavailable SAMSA ., ROBERTO Attending Unavailable SAMSA ., ROBERTO Consulting Unavailable AICHHOLZ, POWER MACHINE OPERATOR KATHIE Admitting Unavailable AICHHOLZ, POWER MACHINE OPERATOR KATHIE Attending Unavailable AICHHOLZ, POWER MACHINE OPERATOR KATHIE Consulting Unavailable AICHHOLZ, POWER MACHINE OPERATOR KATHIE Primary Care Unavailable AICHHOLZ, POWER MACHINE OPERATOR KATHIE Admitting Unavailable AICHHOLZ, POWER MACHINE OPERATOR KATHIE Primary Care Unavailable AICHHOLZ, POWER MACHINE OPERATOR KATHIE Attending Unavailable AICHHOLZ, POWER MACHINE OPERATOR KATHIE Consulting Unavailable AICHHOLZ, POWER MACHINE OPERATOR KATHIE Primary Care Unavailable DR LEONOR MA Consulting Unavailable SAMSA ., ROBERTO Admitting Unavailable SAMSA ., ROBERTO Attending Unavailable SAMSA ., ROBERTO Consulting Unavailable DR LEONOR MA Consulting Unavailable SAMSA ., ROBERTO Admitting Unavailable SAMSA ., ROBERTO Attending Unavailable SAMSA ., ROBERTO Consulting Unavailable DR ELSA NOBLE Admitting Unavailable DR OK CISNEROS V Consulting Unavailable AICHHOLZ, POWER MACHINE OPERATOR KATHIE Primary Care Unavailable DR ELSA NOBLE Attending Unavailable DR ELSA NOBLE Consulting Unavailable SAMSA ., ROBERTO Admitting Unavailable AICHHOLZ, POWER MACHINE OPERATOR KATHIE Primary Care Unavailable SAMSA ., ROBERTO Attending Unavailable SAMSA ., ROBERTO Consulting Unavailable SAMSA ., ROBERTO Admitting Unavailable AICHHOLZ, POWER MACHINE OPERATOR KATHIE Primary Care Unavailable DR LEONOR MA Consulting Unavailable SAMSA ., ROBERTO Attending Unavailable SAMSA ., ROBERTO Consulting Unavailable Pino VALDEZ R Attending Unavailable VALDEZ, Pino R Attending Unavailable VALDEZ, Pino R Attending Unavailable VALDEZ, Pino R Referring Unavailable VALDEZ, Pino R Attending Unavailable VALDEZ, Pino R Admitting Unavailable VALDEZ, Pino R Attending Unavailable VALDEZ, Pino R Admitting Unavailable VALDEZ, Pino R Referring Unavailable VALDEZ, Pino R Attending Unavailable VALDEZ, Pino R Attending Unavailable Princess POST HOLE DIGGING MACHINE OPERATOR, Kathie Unavailable Lanre CHANDLER, Curt Primary Care Provider Allergies Allergy Classification Reported Allergen(s) Allergy Type Date of Onset Reaction(s) Facility (1 source) No Known Medication Allergies; Translations: [No Known Medication Allergies] Propensity to adverse reactions (disorder) [facility] Repository Medications Current Medications Medication Drug Class(es) Dates Sig (Normalized) Sig (Original) [id number] 200 actuat albuterol 0.09 mg/actuat metered dose inhaler (1 source) beta2-Adrenergic Agonist take 2 puff(s) by inhalation every four hours for wheezing albuterol HFA 90 mcg/act inhaler Inhale 2 puffs every 4 (four) hours if needed for wheezing 0 Active amoxicillin 500 mg oral tablet (1 source) Penicillin-class Antibacterial Start: 06-24-2023 take 4 tablets by mouth once at mealtime amoxicillin (Amoxil) 500 MG tablet Indications: History of hip replacement, unspecified laterality 4 tabs PO once 30-60 mins before procedure with food 4 tablet 3 06/24/2023 Active aspirin 81 mg delayed release oral tablet (7 sources) Platelet Aggregation Inhibitor, Nonsteroidal Anti-inflammatory Drug Start: 11-12-2023 End: 02-10-2024 take 1 tablet by mouth in the morning aspirin (Aspirin Low Dose) 81 MG EC tablet Indications: Paroxysmal atrial fibrillation (CMS/HCC) Take 1 tablet (81 mg) by mouth in the morning. 90 tablet 3 11/12/2023 02/10/2024 Active Start: 08-05-2022 take 81 mg by mouth once daily aspirin 81 mg, Oral, Daily Start Date: 08/05/22 Status: Ordered Start: 05-17-2022 [facility] ASP[facility] 81 MG TABLET [facility] ASPIRIN EC 81 MG TABLET Start Date: 05/17/22 Status: Ordered Mike Alvarez (5 sources) Non-narcotic Antitussive Start: 08-05-2022 Malou neil Perles Oral, q12hr, PRN Cough Start Date: 08/05/22 Status: Ordered take 1 capsule by mo [facility] three times daily as needed for cough benzonatate (Tessalon) 200 MG capsule Ta ke 200 mg by mouth 3 (three) times a day as needed for cough Do not crush or chew. 0 Active 60 actuat budesonide 0.16 mg/actuat / formoterol fumarate 0.0045 mg/actuat metered dose inhaler (1 source) Corticosteroid, beta2-Adrenergic Agonist take 2 puff(s) by inhalation in the morning budesonide-formoterol (Symbicort) 160-4.5 MCG/ACT inhaler Inhale 2 puffs in the morning and 2 puffs before bedtime. Rinse mouth with water after use to reduce aftertaste and incidence of candidiasis. Do not swallow.. 0 Active budesonide-formo terol 160 mcg-4.5 mcg/inh Inh Aer w/adapter (6 sources) Start: 2021 take 2 puff(s) by inhalation twice daily budesonide-formoterol 160 mcg-4.5 mcg/inh Inh Aer w/adapter 2 puff(s), Inhalation, BID, Refill(s) 0 Start Date: 05/17/22 Status: Ordered Start: 05-17-2022 budesonide-for moterol 160 mcg-4.5 mcg/inh Inh Aer w/adapter Refill(s) 0 Start Date: 05/17/22 Status: Ordered 24 hr dilTIAZem hydrochloride 180 mg extended release oral capsule (7 sources) Calcium Channel Torres Start: 05-17-2022 take 1 capsule by mouth once daily Dilt-XR 180 mg/24 hours oral capsule, extended release 180 mg = 1 cap(s), Oral, Daily, Refills(s) 0 Start Date: 05/17/22 Status: Ordered Start: 05-17-2022 Dilt-XR 180 mg /24 hours oral capsule, extended release Refills(s) 0 Start Date: 05/17/22 Status: Ordered take 1 capsule by [facility] every twenty-four hours in the morning dilTIAZem XR (Dilacor XR) 180 MG 24 hr capsule Take 180 mg by mouth in the morning. 0 Active 12 hr guaiFENesin 600 mg extended release oral tablet (1 source) take 1 tablet by mouth in the morning, then take 1 tablet by mouth every twelve hours at bedtime guaiFENesin (Mucinex) 600 MG 12 hr tablet Take 1,200 mg by mouth in the morning and 1,200 mg before bedtime. Do not crush, chew, or split.. 0 Active ibuprofen 800 mg oral tablet (1 source) Nonsteroidal Anti-inflammatory Drug take 1 tablet by mouth every six hours as needed for pain ibuprofen 800 MG tablet Take 800 mg by mouth every 6 (six) hours if needed for mild pain 0 Active pantoprazole 40 mg delayed release oral tablet (5 sources) Proton Pump Inhibitor Start: 12-06-19 End: 03-05-20 take 1 tablet by mouth in the morning pantoprazole (ProtoNix) 40 MG EC tablet Indications: Gastro-esophageal reflux disease without esophagitis Take 1 tablet (40 mg) by mouth in the morning. 90 tablet 1 12/06/2023 03/05/2024 Active Start: 08-05-2022 take 1 dose by mouth once willie y predniSONE 10 mg oral tablet (1 source) take 1 tablet by mouth in the morning predniSONE (Deltasone) 10 MG tablet Take 10 mg by mouth in the morning. 0 Active roflumilast 0.5 mg oral tablet (7 sources) Phosphodiesterase 4 Inhibitor Start: 05-17-20 take 1 tablet by mouth once daily Daliresp 500 mcg oral tablet 500 mcg = 1 tab(s), Oral, Daily, Refills(s) 0 Start Date: 05/17/22 Status: Ordered take 1 tablet by mouth once willie y Roflumilast (Daliresp) 500 MCG tablet Take 500 mcg by mouth 1 (one) time each day 0 Active sodium chloride 9 mg/ml inhalation solution (1 source) sodium chloride 0.9 % nebulizer solution Take 3 mL by nebulization if needed for wheezing 0 Active 60 actuat tiotropium 0.0025 mg/actuat inhalation spray (7 sources) Anticholinergic Start: 2 take 1 puff(s) by inhalation once daily Spiriva Respimat 60 ACT 2.5 mcg/inh inhalation aerosol one puff, Inhalation, Daily, Refills(s) 0 Start Date: 05/17/22 Status: Ordered Start: 05-17-2022 Spiriva Respim at 60 ACT 2.5 mcg/inh inhalation aerosol Refills(s) 0 Start Date: 05/17/22 Status: Ordered take 2 puff(s) by in halation in the morning tiotropium (Spiriva Respimat) 2.5 MCG/ACT inhaler Inhale 2 puffs in the morning. 0 Active Ventolin HFA 90 mcg/inh Aerosol-Adpt (6 sources) [...] [Malignant tumor of prostate] Onset: 3 Chronic Cardiac dysrhythmias (1 source) Atrial fibrillation; Translations: [Unspecified atrial fibrillation] Onset: 3 11-12-2023 Chronic Chronic obstructive pulmonary disease and bronchiectasis (1 source) Emphysema, unspecified; Translations: [EMPHYSEMA UNSPECIFIED] Onset: 2 Chronic Esophageal disorders (7 sources) Gastroesophageal reflux disease; Translations: [Gastro-esophageal reflux disease without esophagitis] Onset: 4 04-19-2022 Chronic Gout and other crystal arthropathies (6 sources) Gout 04-19-2022 Chronic Osteoarthritis (6 sources) Arthritis 04-19-2022 Chronic Other gastrointestinal disorders (6 sources) Scrotal mass 04-19-2022 Episodic Other nervous system disorders (6 sources) Neuropathy 04-19-2022 Chronic Other nervous system disorders (1 source) Carpal tunnel syndrome of right wrist; Translations: [Carpal tunnel syndrome, right upper limb] Onset: 3 10-27-2023 Chronic Other screening for suspected conditions (not [...] te Episodic/Chronic Other aftercare (1 source) Other oysterman (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 therapy; Translations: [OTH FDC CURRENT DRUG THERAPY] Onset: 08-13-2022 Episodic Other [...] near your rectum, especially while sitting. ? [place]-colored urine due to small amounts of blood in your urine. ? A burning feeling while urinating. ? Blood in your stool (feces) or bleeding from your rectum. ? Blood in your semen. Follow these instructions at home: Medicines ? Take uvzu-ani-irsllau and prescription medicines only as told by [...] provider. Document Revised: 05/10/2022 Document Reviewed: 05/10/2022 Dr. Z Patient Education ? 2022 [employer]. Transrectal Ultrasound-Guided Prostate Biopsy A transrectal ultrasound-guided [...] including vitamins, herbs, eye drops, creams, and ijng-huo-ijjhkey medicines. ? Any problems you or family [...] as aspirin (more content not included)... Normal [facility] Urology Office/Clinic Noteon 01-02-2024 Urology Office/Clinic Note Chief Complaint prostate cancer (ACTIVE SURVEILLANCE) HPI Staff 6 month f/u with PSA. Dx: prostate cancer (ACTIVE SURVEILLANCE) TRUS BX 05/17/23 PSA: 11/30/23 - 4.22 Dysuria: no Incomplete bladder emptying: no Hematuria: [...] of prostate cancer. S/p TRUS/bx 05/17/23 - Brenden score 6 [...] [facility] [address], [place] [address]- [phone] Additional Instructions: sched repeat TRUS/bx Patient Education Transrectal Ultrasound-Guided Prostate Biopsy, Care After Transrectal Ultrasound-Guided Prostate Biopsy IVesta, personally scribed for Dr. Valdez on 01/02/2024 13:51:44. . Documentation recorded by the scribe, Vesta [...] Father. I (more content not included)... Normal [facility] Comment on above: Result Comment: Elec tronically Signed By: Pino VALDEZ MD\.br\Date and Time Signed: 01/02/24 13:53 EST\.br\Electronically Co-Signed By: Vesta Cortes\.br\Date and Time Co-Signed: 01/02/24 13:52 EST Lab Reportson 12-01-2023 Lab Reports [id number] #1.00TIFF [facility] IntraOperative Documentson 0 06-09-2023 IntraOperative Documents [id number] #1.00CD:127 [facility] Ambulatory Visit Summaryon 0 06-06-2023 Ambulatory Visit Summary JINNYJOSE ANGEL MARSHALLHEMA Payan :1960 Visit Date:06/06/2023 Ambulatory Visit Instructions Your Diagnosis Prostate cancer Sebaceous cyst Tests Performed Urnls Dip Stick Auto w/o Microscopy POC [id number] Your Care Team Attending Physician - Pino VALDEZ MD Primary Care Physician - KATHIE SÁNCHEZ CNP This Is Your Medications List Contact [...] CHANDLER, Pino Reina Where: [facility] Patient Educationon 06-06-20 Patient Education Oncology Prostate Cancer The prostate [...] under a microscope. This is called the [place] score and the total score can range from 6?10, indicating how likely it is that the cancer will spread (metastasize) to other parts of the body. The higher the score, the greater the likelihood that the cancer will spread. ? [place] 6 or lower: This indicates that the cancer cells look similar to normal prostate cells (well differentiated). ? [place] 7: This indicates that the cancer cells [...] external be (more content not included)... Normal [facility] Urology Office/Clinic Noteon 06-06-2023 Urology Office/Clinic Note [...] 04/08/23 - 4.46 S/p TRUS/bx 05/17/23 - [place] score 6 (3+3) in 2 cores each [...] Follow-up With When Contact Information DIONY CHANDLER, FLAQUITO Marcelino In 6 months [facility] [address] [place] [address] [phone] Additional Instructions: PSA and ANNE-MARIE Patient Education [...] Cigarettes, 02/07/2023 (more content not included)... Normal [facility] Comment on above: Result Comment: Elec tronically Signed By: Pino VALDEZ MD\.br\Date and Time Signed: 06/06/23 11:52 EDT\.br\Electronically Co-Signed By: Vesta Cortes\.br\Date and Time Co-Signed: 06/06/23 11:47 EDT Prostate Histology ([facility]) on 05-24-2023 Prostate Histology Diagnosis Info Invalid Interpretation Code [facility] Comment on above: Result Comment: A:Pr ostate,Left Lateral Base:Needle Biopsy Interpretation - - Acinar adenocarcinoma of prostate; Brenden score 6(3+3); Tumor measures 0.12 cm in length; 8% of the core involved by tumor; 1 of 1 core involved (see comment). MicroScopic Description - B:Prostate,Left Lateral Mid:Needle Biopsy Interpretation - - Benign prostatic tissue. MicroScopic Description - C:Prostate,Left Lateral [place]:Needle Biopsy Interpretation - - Benign prostatic tissue. [...] Benign prostatic tissue. MicroScopic Description - F:Prostate,Left [place]:Needle Biopsy Interpretation - - Atypical small acinar glands. MicroScopic Description - G:Prostate,Right Base:Needle Biopsy Interpretation - - Benign prostatic tissue. MicroScopic Description - H:Prostate,Right Mid:Needle Biopsy Interpretation - - Benign prostatic tissue. MicroScopic Description - I:Prostate,Right [place]:Needle Biopsy Interpretation - - High-grade prostatic intraepithelial neoplasia (HGPIN). MicroScopic Description - J:Prostate,Right Lateral Base:Needle Biopsy Interpretation - - High-grade prostatic intraepithelial neoplasia (HGPIN). MicroScopic Description - K:Prostate,Right Lateral Mid:Needle Biopsy Interpretation - - Benign prostatic tissue. MicroScopic Description - L:Prostate,Right Lateral [place]:Needle Biopsy Interpretation - - Benign prostatic tissue. [...] The performance characteristics were determined by the [employer] MD. They have not been cleared by the US Food and Drug Administration. The FDA has determined that such clearance or approval is not necessary. Appropriate positive and negative controls are performed and are acceptable. Electronically signed by : on: 05/24/2023 12:41:39 Performed By: #### 1 [id number] ####[facility] [address] [place] [address] Consent for Procedure/Surger yon 05-17-2023 Consent for Procedure/Surgery [id number] 3#1.00CD:127 Normal [facility] Consent for Treatmenton 2 Consent for Treatment [id number] #1.00CD:127 Normal [facility] IntraOperative Documentson 0 05-17-2023 IntraOperative Documents [id number] 5#1.00CD:127 [facility] Main OR Intraoperative Recor don 05-17-2023 Main OR Intraoperative Record IntraOp Document Type FTURO Summary Primary Physician: Pino VALDEZ MD Finalized Date/Time: 05/17/23 11:14:47 Pt. Name: MATEO STEARNS.O.B./Sex: 1960 Male Med Rec #: [id number] Physician: Pino VALDEZ MD Financial #: [id number] Pt. Type: O Room/Bed: / Admit/Disch: 05/17/23 10:34:13 - Institution: Case Times FTURO Entry 1 Patient Times In Room 05/17/23 10:56:00 Out Room 05/17/23 11:14:00 Procedure Times Start 05/17/23 11:01:00 Stop 05/17/23 11:09:00 Anesthesia Times Last Modified By: Diana Kiran RN 05/17/23 11:14:41 Case Attendance FTURO Entry 1 Entry 2 Entry 3 Case Attendee DIONY CHANDLER, Pino [place] [employer] MAKER, Chanell Kiran RN, Diana Freeman Role Performed Surgeon - Primary Scrub - Primary Medical Supervisor - Primary Time In 05/17/23 10:56:00 05/17/23 [...] By: Diana Kiran RN 05/17/23 11:14 Normal [facility] Main OR Preoperative Recordo n 05-17-2023 Main OR Preoperative Record Holding Area Document Type FTURO Summary Primary Physician: Pino VALDEZ MD Finalized Date/Time: 05/17/23 10:57:44 Pt. Name: MATEO STEARNS /Sex: 1960 Male Med Rec #: [id number] Physician: Pino VALDEZ MD Financial #: [id number] Pt. Type: O Room/Bed: / Admit/Disch: 05/17/23 [...] Complaints of Pain: No Skin Integrity Intact, [place], Warm, & Dry Vitals - EU Blood Pressure 124/80 Pulse 76 bpm Respirations 20 br/min SPO2 97 % RN Reviewed Yes Last Modified By: Diana Kiran RN 05/17/23 10:57:42 General Comments: Temp 37.0 Finalized By: Diana Kiran RN Document Signatures Signed By: Annia Andersen LPN 05/17/23 10:51 Diana Kiran RN 05/17/23 10:57 Normal [facility] Operative Reporton Operative Report Patient: MATEO STEARNS [...] were sent to pathology for evaluation. Normal [facility] Comment on above: Result Comment: Elec tronically Signed By: Pino VALDEZ MD\.br\Date and Time Signed: 05/17/23 11:16 EDT Outpatient Surgery Discharge Instructionon 05-17-2023 Outpatient Surgery Discharge Instruction [id number] 3#1.00CD:127 Normal [facility] Patient Educationon 05-17-20 Patient Education Custom Transrectal [...] for your post-operative appointment in 1-2 weeks [phone] or [phone] Normal [facility] Prostate Histology ([facility]) on 05-17-2023 PH Method of Extraction Needle Biopsy Normal [facility] Comment on above: Performed By: #### 1 [id number] ####[facility] [address] [place] [address] PH Number of Jars 2 Invalid Interpretation Code [facility] Comment on above: Performed By: #### 1 [id number] ####[facility] [address] [place] [address] PH Specimen 1 L Base Prostate Normal [facility] Comment on above: Performed By: #### 1 [id number] ####[facility] [address] [place] [address] PH Specimen 10 R Lat Bse Prost Normal [facility] Comment on above: Performed By: #### 1 [id number] ####[facility] [address] [place] [address] PH Specimen 11 R Lat Mid Prost Normal [facility] Comment on above: Performed By: #### 1 [id number] ####[facility] [address] [place] [address] PH Specimen 12 R Lat Apx Prost Normal [facility] Comment on above: Performed By: #### 1 [id number] ####[facility] [address] [place] [address] PH Specimen 2 L Mid Prostate Normal [facility] Comment on above: Performed By: #### 1 [id number] ####[facility] [address] [place] [address] PH Specimen 3 L Apx Prostate Normal [facility] Comment on above: Performed By: #### 1 [id number] ####[facility] [address] [place] [address] PH Specimen 4 L Lat Bse Prost Normal [facility] Comment on above: Performed By: #### 1 [id number] ####[facility] [address] [place] [address] PH Specimen 5 L Lat Mid Prost Normal [facility] Comment on above: Performed By: #### 1 [id number] ####[facility] [address] [place] [address] PH Specimen 6 L Lat Apx Prost Normal [facility] Comment on above: Performed By: #### 1 [id number] ####[facility] [address] [place] [address] PH Specimen 7 R Base Prostate Normal [facility] Comment on above: Performed By: #### 1 [id number] ####[facility] [address] [place] [address] PH Specimen 8 R Mid Prostate Normal [facility] Comment on above: Performed By: #### 1 [id number] ####[facility] [address] [place] [address] PH Specimen 9 R Apx Prostate Normal [facility] Comment on above: Performed By: #### 1 [id number] ####[facility] [address] [place] [address] PH Type of Service Technical Only Normal [facility] Comment on above: Performed By: #### 1 [id number] ####[facility] [address] [facility] [place] [address] Lab Reportson 05-16-2023 Lab Reports [id number] #1.00CD:127 Normal [facility] Insurance Correspondenceon 0 04-29-2023 Insurance Correspondence [id number] 5#1.00CD:127 Normal [facility] PSA, FREE AND TOTAL RATIOon 04-13-2023 % Free PSA 12.1 % Normal [facility] Comment on above: Result Comment: [...] men. Performed By: #### H ISTGAL #### [facility] [address] [place] [address] Dr. James Crowley Prostate specific Ag [Mass/Vol] 3.4 ng/mL Normal 0.0-4.0 [facility] Comment on above: Result Comment: Rosa Elena HILLIA methodology. . According to the [employer], Serum PSA should decrease and [...] disease. Performed By: #### H ISTGAL #### [facility] [address] [place] [address] Dr. James Crowley PSA, Free 0.41 ng/mL Normal N/A [facility] Comment on above: Result Comment: Rosa Elena edwards ECLIA methodology. Performed By: #### H ISTGAL #### [facility] [address] [place] [address] Dr. James Crowley CBC AUTO DIFFon 04-08-2023 BASO # 0.1 103/ul Normal 0.0-0.1 [facility] Comment on above: Performed By: #### C BC #### [facility] [address] [place] [address] Dr. James Crowley Basophils/100 WBC (Bld) 0.5 % Normal 0.2-2.0 [facility] Comment on above: Performed By: #### C BC #### [facility] [address] [place] [address] Dr. James Crowley EO # 0.1 103/ul Normal 0.0-0.7 [facility] Comment on above: Performed By: #### C BC #### [facility] [address] [place] [address] Dr. James Crowley Eosinophils/100 WBC (Bld) 1.3 % Normal 0.9-7.0 [facility] Comment on above: Performed By: #### C BC #### [facility] [address] [place] [address] Dr. James Crowley Erythrocyte distribution width (RBC) [Ratio] 13.5 % Normal 11.0-15.0 [facility] Comment on above: Performed By: #### C BC #### [facility] [address] [place] [address] Dr. James Crowley Hematocrit (Bld) [Volume fraction] 48.4 % Normal 42.0-54.0 [facility] Comment on above: Performed By: #### C BC #### [facility] [address] [place] [address] Dr. James Crowley Hemoglobin (Bld) [Mass/Vol] 15.6 g/dL Normal 14.0-18.0 [facility] Comment on above: Performed By: #### C BC #### [facility] [address] [place] [address] Dr. James Crowley IG # 0.08 10e3/ul Critically high 0.00-0.03 [facility] Comment on above: Performed By: #### C BC #### [facility] [address] [place] [address] Dr. James Crowley IG % 0.8 % Critically high 0.0-0.5 [facility] Comment on above: Performed By: #### C BC #### [facility] [address] [place] [address] Dr. James Crowley LYMPH # 3.1 103/ul Normal 1.2-3.8 [facility] Comment on above: Performed By: #### C BC #### [facility] [address] [place] [address] Dr. James Crowley Lymphocytes/100 WBC (Bld) 29.8 % Normal 20.5-60.0 [facility] Comment on above: Performed By: #### C BC #### [facility] [address] [place] [address] Dr. James Crowley MANUAL DIFF REQ NO Normal [facility] [facility] Comment on above: Performed By: #### C BC #### [facility] [address] [address] [address] James Crowley MCH (RBC) [Entitic mass] 29.3 pg Normal 25.9-34.0 [facility] Comment on above: Performed By: #### C BC #### [facility] [address] [place] [address] Dr. James Crowley MCHC (RBC) [Mass/Vol] 32.2 g/dL Normal 29.9-35.2 [facility] Comment on above: Performed By: #### C BC #### [facility] [address] [place] [address] Dr. James Crowley MCV (RBC) [Entitic vol] 90.8 fL Normal 80.0-94.0 [facility] Comment on above: Performed By: #### C BC #### [facility] [address] [place] [address] Dr. James Crowley MONO # 0.6 103/ul Normal 0.3-0.8 [facility] Comment on above: Performed By: #### C BC #### [facility] [address] [place] [address] Dr. James Crowley Monocytes/100 WBC (Bld) 5.9 % Normal 1.7-12.0 [facility] Comment on above: Performed By: #### C BC #### [facility] [address] [place] [address] Dr. James Crowley NEUT # 6.4 103/ul Normal 1.4-6.5 [facility] Comment on above: Performed By: #### C BC #### [facility] [address] [place] [address] Dr. James Crowley Neutrophils/100 WBC (Bld) 61.7 % Normal 43.0-75.0 [facility] Comment on above: Performed By: #### C BC #### [facility] [address] [place] [address] Dr. James Crowley Platelet mean volume (Bld) [Entitic vol] 9.1 fL Critically low 9.5-13.5 [facility] Comment on above: Performed By: #### C BC #### [facility] [address], [place] [address] Dr. James Crowley PLT 320 103/ul Normal 150-450 [facility] Comment on above: Performed By: #### C BC #### [facility] [address] [address] [address] James Crowley RBC 5.33 106/ul Normal 4.70-6.10 [facility] Comment on above: Performed By: #### C BC #### [facility] [id number] James Crowley WBC 10.4 103/ul Normal 4.0-11.0 [facility] Comment on above: Performed By: #### C BC #### [facility] [id number] James Crowley CT CHEST W CONon [...] by: LEONOR MA Date: 2023-04-08 10:41 Normal [facility] LIPID PROFILEon 04-08-2023 CHOL-HDL RATIO NORM SEE BELOW Normal [facility] Comment on above: Result Comment: 3.3 - 4.4 LOW RISK 4.4 - 7.1 AVERAGE RISK 7.1 - 11.0 MODERATE RISK >11.0 HIGH RISK Performed By: #### U NEO, LIPID #### [facility] [address], [place] [address] Dr. James Crowley Cholesterol [Mass/Vol] 204 mg/dL Critically high <=200 [facility] Comment on above: Performed By: #### U NEO, LIPID #### [facility] [address], [place] [address] Dr. James Crowley Cholesterol in HDL [Mass/Vol] 55 mg/dL Normal 40-60 [facility] Comment on above: Performed By: #### U NEO, LIPID #### [facility] [address], [place] [address] Dr. James Crowley Cholesterol in LDL [Mass/Vol] 115.2 mg/dL Normal [facility] Comment on above: Performed By: #### U NEO, LIPID #### [facility] [address], [place] [address] Dr. James Crowley Cholesterol.total/Cho lesterol in HDL [Mass ratio] 3.7 {ratio} Normal [facility] Comment on above: Performed By: #### U NEO, LIPID #### [facility] [address], [place] [address] Dr. James Crowley HDL NORMAL > or = 60 mg/dl - LOW CARDIOVASCULAR RISK <40 mg/dl - HIGH CARDIOVASCULAR RISK Normal [facility] Comment on above: Performed By: #### U NEO, LIPID #### [facility] [address], [place] [address] Dr. James Crowley LDL CALC NORMAL SEE BELOW Normal [facility] Comment on above: Result Comment: <100 mg/dl OPTIMAL 100 - 129 mg/dl NEAR OR ABOVE OPTIMAL 130 - 159 mg/dl BORDERLINE HIGH 160 - 189 mg/dl HIGH >190 mg/dl VERY HIGH Performed By: #### U NEO, LIPID #### [facility] [address] [address] [address] James Crowley Triglyceride [Mass/Vol] 169 mg/dL Critically high <=150 [facility] Comment on above: Performed By: #### U NEO, LIPID #### [facility] [address] [place] [address] Dr. James Crowley VLDL CALC 33.8 mg/dL Normal [facility] Comment on above: Performed By: #### U NEO, LIPID #### [facility] [address] [address] [address] James Crowley PROF 14(COMP METB)on 023 Albumin [Mass/Vol] 3.7 g/dL Normal 3.4-5.0 [facility] Comment on above: Performed By: #### U NEO, LIPID #### [facility] [address] [place] [address] Dr. James Crowley Albumin/Globulin [Mass ratio] 0.9 {ratio} Normal [facility] Comment on above: Performed By: #### U NEO, LIPID #### [facility] [address] [place] [address] Dr. James Crowley ALP [Catalytic activity/Vol] 86 U/L Normal 46-116 [facility] Comment on above: Performed By: #### U NEO, LIPID #### [facility] [address] [place] [address] Dr. James Crowley ALT [Catalytic activity/Vol] 33 U/L Normal 16-63 [facility] Comment on above: Performed By: #### U NEO, LIPID #### [facility] [address] [place] [address] Dr. James Crowley Anion gap [Moles/Vol] 14.8 mmol/L Normal [facility] Comment on above: Performed By: #### U NEO, LIPID #### [facility] [address] [place] [address] Dr. James Crowley AST [Catalytic activity/Vol] 16 U/L Normal 15-37 [facility] Comment on above: Performed By: #### U NEO, LIPID #### [facility] [address] [place] [address] Dr. James Crowley Bilirubin [Mass/Vol] 0.7 mg/dL Normal 0.2-1.0 [facility] Comment on above: Performed By: #### U NEO, LIPID #### [facility] [address] [address] [address] James Crowley Calcium [Mass/Vol] 9.1 mg/dL Normal 8.5-10.1 [facility] Comment on above: Performed By: #### U NEO, LIPID #### [facility] [address] [address] [address] James Crowley Chloride [Moles/Vol] 107 mmol/L Normal 98-107 [facility] Comment on above: Performed By: #### U NEO, LIPID #### [facility] [address] [place] [address] Dr. James Crowley CO2 [Moles/Vol] 28.0 mmol/L Normal 21.0-32.0 [facility] Comment on above: Performed By: #### U NEO, LIPID #### [facility] [address] [place] [address] Dr. James Crowley Creatinine [Mass/Vol] 1.10 mg/dL Normal 0.70-1.30 [facility] Comment on above: Performed By: #### U NEO, LIPID #### [facility] [address] [place] [address] Dr. James Crowley EGFR-AF SWEDISH >60 Normal >=60 [facility] Comment on above: Performed By: #### U NEO, LIPID #### [facility] [address] [place] [address] Dr. James Crowley EGFR-NON AF SWEDISH >60 Normal >=60 [facility] Comment on above: Performed By: #### U NEO, LIPID #### [facility] [address] [place] [address] Dr. James Crowley Globulin (S) [Mass/Vol] 3.9 g/dL Normal [facility] Comment on above: Performed By: #### U NEO, LIPID #### [facility] [address] [place] [address] Dr. James Crowley Glucose [Mass/Vol] 98 mg/dL Normal 74-106 [facility] Comment on above: Performed By: #### U NEO, LIPID #### [facility] [address] [address] [address] James Crowley Potassium [Moles/Vol] 3.8 mmol/L Normal 3.5-5.1 [facility] Comment on above: Performed By: #### U NEO, LIPID #### [facility] [address] [address] [address] Jmaes Crowley Protein [Mass/Vol] 7.6 g/dL Normal 6.4-8.2 [facility] Comment on above: Performed By: #### U NEO, LIPID #### [facility] [address] [address] [address] James Crowley Sodium [Moles/Vol] 146 mmol/L Critically high 136-145 [facility] Comment on above: Performed By: #### U NEO, LIPID #### [facility] [address] [address] [address] James Crowley Urea nitrogen [Mass/Vol] 18.0 mg/dL Normal 7.0-18.0 [facility] Comment on above: Performed By: #### U NEO, LIPID #### [facility] [address] [place] [address] Dr. James Crowley Urea nitrogen/Creatinine [Mass ratio] 16.4 mg/mg Normal [facility] Comment on above: Performed By: #### U NEO, LIPID #### [facility] [address] [place] [address] Dr. James Crowley URIC ACID SERUMon 04-08-2023 Urate [Mass/Vol] 6.7 mg/dL Normal 3.5-7.2 [facility] Comment on above: Performed By: #### U NEO, LIPID #### [facility] [address] [place] [address] Dr. James Crowley Patient Educationon 02-08-20 23 [...] if anything looks unusual. Men with a euvtcb-oywq-oymcna risk for skin cancer may want to see a alteration specialist (course instructor) for an annual body check. Where to find more information ? National Cancer [place]: https://www.cancer.g ov/about-cancer/scre ening ? Centers for Disease Control and Prevention: https://www.cdc.gov/ cancer/dcpc/preventi on/screening.htm ? [employer]: https://www.cancer.o rg/latest-news/4-can lyb-hjdrjluwo-jmfos- for-men.html Contact a health care (more content not included)... Normal [facility] Office/Clinic Noteon 02-07-2023 Urology Office/Clinic Note [...] Pino Reina, URL [facility] [address] [place] [address]- Additional Instructions: PRN Patient Education Cancer Screening [...] Father. Immunizations Vaccine Date Status SARS-CoV-2 (COVID-19) mRNAMUL.[id number] 09/25/2022 Recorded SARS-CoV-2 (COVID-19) mRNA BNT-162b2 vax [...] Protein Urine Dipstick: Negative (02/07/23 12:43:00) Specific [place] Urine Dipstick: 1.010 (02/07/23 12:43:00) Urine Appearance Urine Dipstick: Clear (02/07/23 12:43:00) Urine Color Urine Dipstick: Light yellow (02/07/23 12:43:00) Urobilinogen Urine Dipstick: Normal 0.2-1 EU/dl (02/07/23 12:43:00) pH Uri (more content not included)... [facility] Comment on above: Result Comment: Elec tronically Signed By: Pino VALDEZ MD\.br\Date and Time Signed: 02/07/23 13:05 EDT\.br\Electronically Co-Signed By: Radha Nobles\.br\Date and Time Co-Signed: 02/07/23 13:00 EDT Consent for Procedure/Surger yon 01-25-2023 Consent for Procedure/Surgery [id number] 8#1.00CD:127 [facility] Consent for Treatmenton 12-30 Consent for Treatment [id number] #1.00CD:127 [facility] IntraOperative Documentson 0 01-25-2023 IntraOperative Documents [id number] 3#1.00CD:127 Normal [facility] Main OR Intraoperative Recor don 01-25-2023 Main OR Intraoperative Record IntraOp Document Type FTURO Summary Primary Physician: Pino VALDEZ MD Finalized Date/Time: 01/25/23 14:02:36 Pt. Name: MATEO STEARNS Schuyler BolañosB./Sex: 1960 Male Med Rec #: [id number] Physician: Pino VALDEZ MD Financial #: [id number] Pt. Type: O Room/Bed: / Admit/Disch: 01/25/23 12:39:00 - Institution: Case Times FTURO Entry 1 Patient Times In Room 01/25/23 13:35:00 Out Room 01/25/23 14:06:00 Procedure Times Start 01/25/23 13:40:00 Stop 01/25/23 14:01:00 Anesthesia Times Last Modified By: Jigar MCLEAN, BRADLEYOR, Kinjal 01/25/23 14:01:59 Case Attendance FTURO Entry 1 Entry 2 Entry 3 Case Attendee DIONY CHANDLER, Pino Kimball RN, CNOR, Oswaldo MORENO, Diana Layton Role Performed Surgeon - Primary Medical Supervisor - Primary Scrub - Primary Time In 01/25/23 13:35:00 01/25/23 13:35:00 01/25/23 13:35:00 Time Out 01/25/23 14:06:00 01/25/23 14:06:00 01/25/23 14:06:00 Procedure SCROTAL/PERINEAL SCROTAL/PERINEAL SCROTAL/PERINEAL ABSCESS IandD(.) ABSCESS IandD(.) ABSCESS IandD(.) Comments Last Modified By: Jigar RN, CNOR, Jigar RN, CNOR, Jigar RN, CNOR, Kinjal 01/25/23 Kinjal 01/25/23 Kinjal 01/25/23 14:02:00 14:02:00 14:02:00 Surgical Procedures FTURO Entry 1 Procedure Description Procedure SCROTAL/PERINEAL Modifiers . ABSCESS IandD Surgeon Description EXCISION OF SCROTAL CYST Primary Procedure Yes Primary Surgeon Pino VALDEZ MD Start 01/25/23 13:40:00 Stop 01/25/23 14:01:00 Anesthesia Type Local Surgical Service Urology Wound Class 4 - Dirty Last Modified By: MICA Kimball RN, Ruthann 01/25/23 14:02:03 General Case Data FTURO Pre-Care Text: Classifies surgical wound, implements aseptic technique, initiates traffic control Entry 1 Case Information OR URO 1 FT Case Level None Wound Class 4 - Dirty Specialty Urology Preop Diagnosis SCROTAL CYST Postop Same As Preop Yes Postop Diagnosis SCROTAL CYST Outcomes Met? Yes Last Modified By: MICA Kimball RN, Ruthann 01/25/23 13:50:35 Post-Care Text: The patient is [...] Participants MICA Kimball RN, Ruthann, McClain CST, Diana Chaparro Allergies Reviewed? Yes Allergies Reviewed Self/Patient With [...] MICA Kimball RN, Ruthann 01/25/23 14:02 Normal [facility] Main OR Preoperative Recordo n 01-25-2023 Main OR Preoperative Record Holding Area Document Type FTURO Summary Primary Physician: Pino VALDEZ MD Finalized Date/Time: 01/25/23 13:41:59 Pt. Name: MATEO STEARNS Schuyler Strickland./Sex: 1960 Male Med Rec #: [id number] Physician: Pino VALDEZ MD Financial #: [id number] Pt. Type: O Room/Bed: / Admit/Disch: 01/25/23 [...] No Pain Comment: na Skin Integrity Intact, [place], Warm, & Dry Vitals - EU Blood Pressure 146/95 Pulse 107 bpm Respirations 18 br/min SPO2 91 % RN Reviewed Yes Last Modified By: MICA Kimball RN, Ruthann 01/25/23 13:41:58 General Comments: temp:36.7 Finalized By: MICA Kimball RN, Ruthann Document Signatures Signed By: Harsha MEJIADomonique Oj 01/25/23 13:01 MICA Kimball RN, Ruthann 01/25/23 13:42 Normal [facility] Operative Reporton Operative Report Patient: MATEO STEARNS [...] a week to remove the sutures. Normal [facility] Comment on above: Result Comment: Elec tronically Signed By: Pino VALDEZ MD\.br\Date and Time Signed: 01/25/23 14:11 EST Patient Educationon 01-25-20 23 Patient Education Custom Excision Penile Condyloma ? [...] pain medication and antibiotics as directed Normal [facility] CT CHEST WO CONon 01-04-2023 CT CHEST [...] by: LEONOR MA Date: 2023-01-04 10:52 Normal [facility] CT CHEST WO CONon 10-07-2022 [...] by: LEONOR MA Date: 2022-10-07 16:05 Normal [facility] ACID FAST SMEAR AND CXon Acid Fast Culture Negative Normal [facility] Comment on above: Result Comment: No a tomi fast bacilli isolated after 6 weeks. Performed By: #### U NEO, LIPID #### [facility] [address] [address] [address] James Crowley Acid Fast Smear Negative Normal [facility] Comment on above: Performed By: #### U NEO, LIPID #### [facility] [address] [address] [address] James Crowley [employer] Specimen Processing Concentration Normal [facility] Comment on above: Performed By: #### U NEO, LIPID #### [facility] [address] [address] [address] James Crowley FUNGAL AB QUANTITAIVE DOUBLE IMMUNODIFFUon 08-22-2022 Aspergillus flavus Negative Normal Neg:<1:1 [facility] Comment on above: Performed By: #### F UNGUYI #### [facility] [address] [address] [address] James Crowley Aspergillus fumigatus Negative Normal Neg:<1:1 [facility] Comment on above: Performed By: #### F UNGUYI #### [facility] [address] [address] [address] James Crowley Aspergillus niger Negative Normal Neg:<1:1 [facility] Comment on above: Performed By: #### F UNGUYI #### [facility] [address] [address] [address] James Crowley Blastomyces Negative Normal Neg:<1:1 [facility] Comment on above: Performed By: #### F UNGUYI #### [facility] [address] [place] [address] Dr. James Crowley [place] B VIRUS ANTIBODIES on 08-21-2022 [place] B-1 Ab Negative Normal Neg:<1:8 [facility] Comment on above: Performed By: #### C OXSBV #### [facility] [address] [place] [address] Dr. James Crowley [place] B-2 Ab Negative Normal Neg:<1:8 [facility] Comment on above: Performed By: #### C OXSBV #### [facility] [address] [address] [address] James Crowley [place] B-3 Ab Negative Normal Neg:<1:8 [facility] Comment on above: Performed By: #### C OXSBV #### [facility] [address] [address] [address] James Crowley [place] B-4 Ab Negative Normal Neg:<1:8 [facility] Comment on above: Performed By: #### C OXSBV #### [facility] [address] [address] [address] James Crowley [place] B-5 Ab Negative Normal Neg:<1:8 [facility] Comment on above: Performed By: #### C OXSBV #### [facility] [address] [address] [address] James Crowley [place] B-6 Ab Negative Normal Neg:<1:8 [facility] Comment on above: Performed By: #### C OXSBV #### [facility] [address] [address] [address] James Crowley HISTOPLASMA CAP AB QUANT DID on 08-21-2022 Histoplasma Mycelial CF Ab. Negative Normal Neg:<1:2 [facility] Comment on above: Performed By: #### H ISTGAL #### [facility] [address] [address] [address] James Crowley Histoplasma Yeast CF Ab Negative Normal Neg:<1:2 [facility] Comment on above: Performed By: #### H ISTGAL #### [facility] [address] [address] [address] James Crowley [place] A VIRUS AB IGMon 0 08-20-2022 [place] A16 IgM Negative Normal Neg:<1:10 [facility] Comment on above: Performed By: #### C OXSIGM #### [facility] [address] [address] [address] James Crowley [place] A24 IgM Negative Normal Neg:<1:10 [facility] Comment on above: Performed By: #### C OXSIGM #### [facility] [address] [place] [address] Dr. James Desir A7 IgM Negative Normal Neg:<1:10 [facility] Comment on above: Performed By: #### C OXSIGM #### [facility] [address] [place] [address] Dr. James Desir A9 IgM Negative Normal Neg:<1:10 [facility] Comment on above: Performed By: #### C OXSIGM #### [facility] [address] [place] [address] Dr. James Crowley HISTOPLASMA GALACTOMANNAN AG URINEon 08-20-2022 Histoplasma Gal'shwetha Ag <0.5 Normal <0.5 ng/mL [facility] Comment on above: Performed By: #### H ISTGAL #### [facility] [address] [place] [address] Dr. James Crowley QUANTIFERON TB GOLD PLUSon 0 08-20-2022 QuantiFERON Criteria Comment [facility] Comment on above: Result Comment: Vick tiFERON-TB [...] test. Performed By: #### Q NTTB #### [facility] [address] [place] [address] Dr. James Crowley QuantiFERON Incubation Incubation performed. Normal [facility] Comment on above: Performed By: #### Q NTTB #### [facility] [address] [place] [address] Dr. James Crowley QuantiFERON Mitogen Value >10.00 Normal [facility] Comment on above: Performed By: #### Q NTTB #### [facility] [address] [place] [address] Dr. James Crowley QuantiFERON Nil Value 0.04 IU/mL Normal [facility] Comment on above: Performed By: #### Q NTTB #### [facility] [address] [address] [address] James Crowley QuantiFERON TB1 Ag Value 0.04 IU/mL Normal [facility] Comment on above: Performed By: #### Q NTTB #### [facility] [address] [address] [address] James Crowley QuantiFERON TB2 Ag Value 0.05 IU/mL Normal [facility] Comment on above: Performed By: #### Q NTTB #### [facility] [address] [address] [address] James Crowley QuantiFERON-TB Gold Plus Negative Normal Negative [facility] Comment on above: Result Comment: No r esponse to M tuberculosis antigens detected. Infection with M tuberculosis is unlikely, but high risk individuals should be considered for additional testing (ATS/IDSA/CDC Clinical Practice Guidelines, 2017). The reference range is an Antigen minus Nil result of <0.35 IU/mL. Chemiluminescence immunoassay methodology Performed By: #### Q NTTB #### [facility] [address] [place] [address] Dr. James Crowley CREATININEon 08-18-2022 Creatinine [Mass/Vol] 0.97 mg/dL Normal 0.70-1.30 [facility] Comment on above: Performed By: #### H ISTGAL #### [facility] [address] [place] [address] Dr. James Crowley EGFR-AF SWEDISH >60 Normal >=60 [facility] Comment on above: Performed By: #### H ISTGAL #### [facility] [address] [place] [address] Dr. James Crowley EGFR-NON AF SWEDISH >60 Normal >=60 [facility] Comment on above: Performed By: #### H ISTGAL #### [facility] [address] [place] [address] CHEST W CONon [...] LEONOR MA Date: 2022-08-18 10:27 Normal [facility] CULTURE SPUTUMon 08-18-2022 CULTURE SPUTUM Isolate 1 Haemophilus parainfluenzae Moderate growth of Normal [facility] Comment on above: Result Comment: Beta -Lactamase: Negative Performed By: #### H ISTGAL #### [facility] [address] [address] [address] James Crowley SPUTUM GRAM STAINon 08-18-20 22 COMMENTS Normal [facility] Comment on above: Performed By: #### H ISTGAL #### [facility] [address] [address] [address] James Crowley DIPHTHEROIDS Normal [facility] Comment on above: Performed By: #### H ISTGAL #### [facility] [address] [address] [address] James Crowley EPITHELIALS <25 Normal [facility] Comment on above: Performed By: #### H ISTGAL #### [facility] [address] [address] [address] James Crowley FUNGAL ELEMENTS Normal [facility] Comment on above: Performed By: #### H ISTGAL #### [facility] [address] [address] [address] James Crowley GRAM NEG BACILLI Normal [facility] [facility] Comment on above: Performed By: #### H ISTGAL #### [facility] [address] [address] [address] James KAN NEG DIPPLOCOCCI FEW Normal [facility] Comment on above: Performed By: #### H ISTGAL #### [facility] [address] [address] [address] James Crowley GRAM POS BACILLI Normal The [facility] Comment on above: Performed By: #### H ISTGAL #### [facility] [address] [address] [address] James Crowley GRAM POSITIVE COCCI FEW Normal The [facility] Comment on above: Performed By: #### H ISTGAL #### [facility] [address] [address] [address] James Crowley WBC (Bld) [#/Vol] 10*3/uL Normal The [facility] Comment on above: Performed By: #### H ISTGAL #### [facility] [address] [address] [address] James Crowley XR RIBS RT PA [...] [place] CISNEROS Date: 2022-08-12 13:02 Normal [facility] Covid-19 PCR (CVDTB)on SARS-CoV-2 (COVID-19) RNA SOURAV+probe Ql (Unsp spec) Not detected Normal NOT DETECTED [facility] Comment on above: Result Comment: [...] for this test is supported by the [place] of Health and Human Service's declaration that [...] longer be used). Performed By: #### [facility] #### [facility] [address] [place] [address] Dr. James Rey 03-24-2021 L Specimen: [id number] Received: 03/24/21 Status: [place] Nix Num: [id number] Spec Type: Surgical Subm Dr: Bryan Quick MD Tissues: A Skin-Other than Cyst, tag, debridement or plastic repair (LT NASAL DORSUM) Procedures: HE Stain, Gross/Micro L4 Patient Age/Sex Location Account Attending Physician Mateo Sterans/M [place] [id number] Bryan Quick MD SPEC NUM: [id number] RECD: 03/24/21 STATUS: [place] NIX NUM: [id number] FRANCISCA: 03/24/[address] [facility] DR: Bryan Quick MD ENTERED: 03/24/[address] [facility] [address]: MYAH TYPE: Surgical DEPT: S ORDERED: [...] microscopic findings support the above pathologic diagnosis. [id number] Specimen: [id number] Received: 03/24/21 Status: [place] Dinah Num: [id number] Spec Type: Surgical Subm Dr: Bryan Quick MD Tissues: A Skin-Other than Cyst, tag, debridement or plastic repair (LT NASAL DORSUM) Procedures: HE Stain, Gross/Micro L4 Patient: Mateo Stearns [id number] (Continued) Signed (signature on file) Cindy Garcia MD 03/25/[address] [facility] Vital Signs Date Time Vital Sign Value Performing Clinician Dom jesus 06-06-2023 10:36-0400 Blood Pressure Location Pino VALDEZ [facility] 06-06-2023 10:36-0400 Diastolic blood pressure 76 mm[Hg] Pino VALDEZ [facility] 06-06-2023 10:36-0400 Heart rate 72 /min Pino VALDEZ [facility] 06-06-2023 10:36-0400 Respiratory rate 16 /min Pino VALDEZ [facility] 06-06-2023 10:36-0400 Systolic blood pressure 130 mm[Hg] Pino VALDEZ [facility] 02-07-2023 12:42-0400 Blood Pressure Location Pino VALDEZ [facility] 02-07-2023 12:42-0400 Diastolic blood pressure 77 mm[Hg] Pino VALDEZ [facility] 02-07-2023 12:42-0400 Heart rate 74 /min Pino VALDEZ [facility] 02-07-2023 12:42-0400 Systolic blood pressure 138 mm[Hg] Pino VALDEZ [facility] 05-17-2022 12:56-0400 Blood Pressure Location Pino VALDEZ [facility] 05-17-2022 12:56-0400 Diastolic blood pressure 87 mm[Hg] Pino VALDEZ [facility] 05-17-2022 12:56-0400 Heart rate 79 /min Pino VALDEZ [facility] 05-17-2022 12:56-0400 Respiratory rate 16 /min Pino VALDEZ [facility] 05-17-2022 12:56-0400 Systolic blood pressure 139 mm[Hg] Pino VALDEZ [facility] Encounters Encounter Date Encounter Type Care Provider Facility Start: 05-21-2024 ambulatory Pino Omalleyi ty:[facility] [place] Start: 01-05-2024 Clinisync Result Encounter Generic External Data Provider [facility] External Department Unsolicited Start: 01-05-2024 Clinisync Result Encounter Generic External Data Provider [facility] External Department Unsolicited Start: 01-02-2024 End: 01-03-2024 ambulatory Pino VALDEZ Facility:[facility] Start: 07-22-2023 ambulatory Pino Omalleyi ty:[facility] [place] Start: 06-06-2023 End: 06-07-2023 ambulatory Pino VALDEZ Facility:[facility] Start: 06-06-2023 End: 06-06-2023 Patient encounter procedure Pino VALDEZ [facility] [place] Start: 05-17-2023 End: 05-18-2023 ambulatory Pino VALDEZ Facility:[facility] Start: 05-17-2023 End: 05-17-2023 Patient encounter procedure Pino VALDEZ [facility] Start: 04-12-2023 End: 04-13-2023 ambulatory PROMISE SÁNCHEZ Facility:[facility] Start: 04-08-2023 End: 04-09-2023 ambulatory PROMISE SÁNCHEZ Facility:[facility] Start: 02-07-2023 End: 02-08-2023 ambulatory Pino VALDEZ Facility:[facility] Start: 02-07-2023 End: 02-07-2023 Patient encounter procedure Pino VALDEZ [facility] Start: 01-25-2023 End: 01-26-2023 ambulatory Pino VALDEZ Facility:[facility] Start: 01-04-2023 End: 01-05-2023 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 Facility:[facility] Start: 08-12-2022 End: 08-12-[address] ELSA RAE . Facility:[facility] Start: 07-20-2022 End: 08-11-2022 Pre-admission assessment Pino VALDEZ [facility] Start: 05-17-2022 End: 06-16-2022 Pre-admission assessment Pino VLADEZ [facility] Start: 05-17-2022 End: 05-17-2022 Patient encounter procedure Pino VALDEZ [facility] Start: 05-03-2022 End: 05-03-2022 ambulatory ROBERTO ALVES . Facility:[facility] Start: 03-24-2021 End: 03-24-2021 Departed Referred Bryan Quick Work Phone: [facility] [place] Procedures Date Procedure Procedure Detail Performing Clinician Start: 01-05-2024 BLOOD CULTURE 2 Generic External Data Provider Start: 01-05-2024 BLOOD CULTURE 1 Generic External Data Provider Start: 04-08-2023 PSA screening POWER MACHINE OPERATOR KATHIE HAHNDIAMONDMatias Comment on above: Performed By: #### P [facility] #### [facility] [address] [address] [address] James Crowley Colonoscopy Pino VALDEZ Procedure on foot Pino LEON Repair of hip Pino VALDEZ Comment on above: Both hips Both hips Transrectal needle b iopsy of prostate Pino VALDEZ Plan of Treatment Date Care Activity Detail Author Start: 07-29-2023 Influenza vaccination Influenza Vacc ine (#1) [facility] Start: 2023 Pneumococcal Vaccine : 65+ Years (1 - PCV) Pneumococcal Vaccine: 65+ Years (1 - PCV) [facility] Start: 1960 Medicare Annual Well ness (AWV) Medicare Annual Wellness (AWV) [facility] Start: 1960 Screening for malign ant neoplasm of colon [facility] BLOOD CULTURE 1 BLOOD CULTURE 1 Lab Routine 01/05/2024 4:58 PM EST [facility] BLOOD CULTURE 2 BLOOD CULTURE 2 Lab Routine 01/05/2024 5:04 PM EST [facility] Immunizations Immunization Date Immunization Notes Care Provider Jenni [facility] 09-25-2022 SARS-CoV-2 (COVID-19 ) mRNAMUL.[id number] Pino VALDEZ [facility] 05-26-2021 SARS-CoV-2 (COVID-19 ) mRNA BNT-162b2 vax Pinomichelle VALDEZ [facility] 05-05-2021 SARS-CoV-2 (COVID-19 ) mRNA BNT-162b2 vax Pinomichelle VALDEZ [facility] 03-11-2021 tetanus toxoid, redu liyah diphtheria toxoid, and acellular pertussis vaccine, adsorbed Pinomichelle VALDEZ [facility] Payers Date Payer Category Payer Medicare ANTHEM MEDICARE ADVANTAGE ANTHEM MEDICARE ADVANTAGE [id number] 2022-Present [address] [place] [address] [id number] 2020 Medicaid MEDICAID [facility] [id number] 2020-Present [phone] [address] [place] [address] Medicaid [id number] 1959 Medicaid [id number] 1959 Medicare [id number] 1959 Unknown [id number] 1958 Unknown [id number] [id number] 1958 Unknown [id number] 2.16.840.1.836028.3.579.2.593 1958 Unknown [id number] 2.16.840.1.354406.3.579.2.593 1958 Unknown [id number] 2.16.840.1.250133.3.579.2.593 1958 Unknown [id number] 2.16.840.1.116395.3.579.2.593 1958 Unknown [id number] 2.16.840.1.553340.3.579.2.593 1958 Unknown [id number] 2.16.840.1.017613.3.579.2.593 1958 Unknown [id number] 2.16.840.1.931582.3.579.2.593 1958 Unknown [id number] 2.16.840.1.752291.3.579.2.727 1958 Unknown [id number] 2.16.840.1.656311.3.579.2.727 1958 Unknown [id number] 2.16.840.1.279553.3.579.2.727 1958 Unknown [id number] 2.16.840.1.097299.3.579.2.727 1958 Unknown [id number] 2.16.840.1.667261.3.579.2.727 1958 Unknown [id number] 2.16.840.1.976798.3.579.2.727 1958 Unknown [id number] 2.16.840.1.378667.3.579.2.727 Self-pay Self Pay [id number] Social History Date Type Detail [facility] Start: 1960 Sex Assigned At Male F [facility] Start: 05-17-2022 End: 11-13-2023 Tobacco smoking status Ex-smoker (finding) [facility] Start: 11-13-2023 Sex Assigned At Male [facility] Tobacco smoking status Never [facility] End: 11-28-2015 History of tobacco use Current smoker [facility] End: 11-28-2015 History of tobacco use Cigarette Smoker [facility] Start: 11-13-2023 Cigarettes smoked current (pack per day) - Reported 2 [facility] Start: 11-13-2023 Alcohol intake Ex-drinker (finding) [facility] Start: 1960 Sex Assigned At Not on file [facility] Goals Date Patient Goal Desired Activity /State Functional Status Date Assessment Result Facility 06-06-2023 Functional Status N/A [facility] 05-17-2023 Functional Status N/A [facility] 02-07-2023 Functional Status N/A [facility] 08-05-2022 N/A [facility] 06-11-2022 Functional Status N/A [facility] 05-17-2022 Functional Status N/A [facility] Clinical Notes 05-17-2022 [...] the likelihood that the cancer will spread. [place] 6 or lower: This indicates that the cancer cells look similar to normal prostate cells (well differentiated). [place] 7: This indicates that the cancer cells look somewhat similar to normal prostate cells (moderately differentiated). [place] 8, 9, or 10: This indicates that [...] stress of having cancer. General instructions Take mkel-hxd-qkttjrg and prescription medicines only as told by your health care provider. If you have to go to the hospital, notify your cancer specialist (oncologist). Keep all follow-up visits. This is important. Where to find more information [place] [employer]: www.cancer.org [place] Society of Clinical Oncology: www.cancer.net National Cancer [place]: www.cancer.gov Contact a health care provider if: [...] provider. Document Revised: 02/10/2022 Document Reviewed: 02/10/2022 Dr. Z Patient Education 2022 OMGPOP. Follow Up Care 04/27/2023 15:15:09 With:DIONY CHANDLER, Pino Reina, URL Address: [facility] [address] [place] [address]- [phone] When:Within 6 Month(s) Comments:PSA and ANNE-MARIE [facility] 05-17-2023 Note [id number]#[id number]:127 [facility] 05-17-2023 Hospital Discharg e instructions Patient Education [...] for your post-operative appointment in 1-2 weeks [phone] or [phone] Follow Up Care 04/27/2023 15:25:07 With:Pino VALDEZ Address: [facility] [address], [place] [address]- Business (1) When: Unknown Comments:Keep scheduled appointment [facility] 02-07-2023 Hospital Discharg e instructions Patient Education [...] if anything looks unusual. Men with a lvmydt-kkie-mocdpr risk for skin cancer may want to see a alteration specialist (course instructor) for an annual body check. Where to find more information National Cancer [place]: https://www.cancer.gov/about-ca ncer/screening Centers for Disease Control and Prevention: https://www.cdc.gov/cancer/dcpc /prevention/screening.htm [place] [employer]: https://www.cancer.org/latest-n ews/7-egeneb-ecfpnkrcj-tests-fo r-men.html Contact a health care provider if: [...] 08/11/2017 Document Revised: 08/03/2019 Document Reviewed: 08/11/2017 Dr. Z Patient Education 2020 OMGPOP. Follow Up Care 12/10/2022 10:33:39 With:DIONY CHANDLER, Pino Reina, URL Address: [facility] [address], [place] [address]- When: Unknown [facility] 01-25-2023 Note [id number]:127 [facility] 05-17-2022 Hospital Discharg e instructions Patient Education 05/17/2022 13:40:29 Epidermal Cyst, Yojh-ia-Iqre Epidermal Cyst An epidermal cyst is a [...] yourself. Follow these instructions at home: Take oamf-gyh-xqmsuru and prescription medicines only as told by [...] the cyst, or to remove it. Take suft-sqg-pbbchtg and prescription medicines only as told by [...] 12/22/2005 Document Revised: 03/06/2020 Document Reviewed: 08/23/2019 Dr. Z Patient Education 2019 OMGPOP. 04/19/2022 08:23:29 Testicular Self-Exam Testicular Self-Exam A [...] 02/20/2002 Document Revised: 03/06/2020 Document Reviewed: 10/10/2017 Dr. Z Patient Education 2020 OMGPOP. Follow Up Care 03/17/2022 10:53:14 With:DIONY CHANDLER, Pino Reina, URL Address: [facility] [address], [place] [address]- When: Unknown [facility] Evaluation + Plan note Future Appointments Appointment Date:06/08/2022 08:45:00 AM Scheduled Provider: Location:[facility] Appointment Type:Urology CALL PAT FT Appointment Date:06/15/2022 09:00:00 AM Scheduled Provider: Location:[facility] Appointment Type:Urology FT [facility] Evaluation + Plan note Future Appointments Appointment Date:08/23/2022 12:30:00 PM Scheduled Provider:Pino VALDEZ MD Location:[facility] Appointment Type:URO Office Visit [facility] Evaluation + Plan note Future Appointments Appointment Date:06/06/2023 09:45:00 AM Scheduled Provider:Pino VALDEZ MD [facility] Appointment Type:URO Office Visit Diagnostic Tests PendingProstate Histology ([facility]) 05/17/23 [facility] Evaluation + Plan note Future Appointments Appointment Date:12/09/2023 10:45:00 AM Scheduled Provider:Pino VALDEZ MD Location:[facility] Appointment Type:URO Office Visit Diagnostic Tests PendingPSA Total 06/06/23 [facility] Evaluation note No Assessments Infor mation Available [facility] Hospital course Narrative No data available for this section [facility] Hospital Discharge instructions No data available for this section [facility] [place] note No data available for this section [facility] [place] Summary Purpose Family History No Family History Records FoundNo Family History Records FoundNo Family History Records Found Advance Directives No Advanced Directives Records FoundNo Advanced Directives Records FoundNo Advanced Directives Records Found Additional Source Comments (unrecognized sect ion and content) No Status Records FoundNo Status Records FoundNo Status Records Found INFORMATION SOURCE (unrecogn ized section and content) DATE CREATED AUTHOR 04/01/2021 [facility] DATE CREATED AUTHOR AUTHOR'S ORGANIZ ATION 04/13/2023 [facility] DATE CREATED AUTHOR AUTHOR'S ORGANIZ ATION 01/03/2024 [facility] Care Team (unrecognized sect ion and content) Compounder Relationship Specialty Start Date End Date Curt De Dios MD [address] [place] [address] PCP - General Family Medicine 11/11/23 Kathie Sánchez NP [address] [place] [address] Nurse Practitioner Family Medicine 10/03/23 FOR RECORDS PERTAINING TO PATIENTS WHO ARE [...] BE BASED ON THE PRIMARY CLINICAL RECORDS. [employer] provides no warranty or guarantee of the accuracy or completeness of information in this document.
[2024-02-28 12:04] LABS: Basophils Absolute Auto 0.1 10^3/uL (0.0-0.1); Basophils Percent Auto 0.4 % (0.2-2.0); Eosinophils Absolute Auto 0.1 10^3/uL (0.0-0.7); Eosinophils Percent Auto 0.4 % (0.9-7.0); Hemoglobin 14.3 g/dL (14.0-18.0); Immature Granulocytes Abs Auto 0.15 10^3/uL (0.00-0.03); Immature Granulocytes Pct Auto 1.1 % (0.0-0.5); Lymphocytes Absolute Auto 1.7 10^3/uL (1.2-3.8); Lymphocytes Percent Auto 12.6 % (20.5-60.0); Mean Corpuscular HGB Conc 31.8 g/dL (29.9-35.2); Mean Corpuscular Hemoglobin 29.5 pg (25.9-34.0); Mean Corpuscular Volume 92.8 fL (80.0-94.0); Mean Platelet Volume 8.6 fL (9.5-13.5); Monocytes Absolute Auto 0.6 10^3/uL (0.3-0.8); Monocytes Percent Auto 4.3 % (1.7-12.0); Neutrophils Absolute Auto 10.7 10^3/uL (1.4-6.5); Neutrophils Percent Auto 81.2 % (43.0-75.0); Platelet Count 301 10^3/uL (150-450); Red Blood Count 4.85 10^6/uL (4.70-6.10); Red Cell Distribution Width 13.9 % (11.0-15.0); White Blood Count 13.2 10^3/uL (4.0-11.0)
[2024-02-28 13:18] LABS: Alanine Aminotransferase 27 U/L (16-63); Albumin Level 3.5 g/dL (3.4-5.0); Alkaline Phosphatase 71 U/L (46-116); Anion Gap 12.5; Aspartate Amino Transferase 16 U/L (15-37); BUN Creatinine Ratio 15.4; Bilirubin Total 0.9 mg/dL (0.2-1.0); Carbon Dioxide 29.9 mmol/L (21.0-32.0); Chloride 103 mmol/L (98-107); Chol HDL Ratio 2.9; Cholesterol 185 mg/dL (<=200); Estimated GFR (African America >60 (>=60); Estimated GFR (Non-African Ame >60 (>=60); Globulin 3.4 g/dL; Glucose 99 mg/dL (74-106); HDL Cholesterol 63 mg/dL (40-60); Potassium 3.4 mmol/L (3.5-5.1); Sodium 142 mmol/L (136-145); Total Protein 6.9 g/dL (6.4-8.2); Triglycerides 121 mg/dL (<=150); Uric Acid 6.9 mg/dL (3.5-7.2); VLDL CHOLESTEROL 24.2 mg/dL
[2024-02-28 13:21] LABS: Bilirubin Urine NEGATIVE (NEGATIVE); Blood Urine NEGATIVE (NEGATIVE); Clarity Urine CLEAR (CLEAR); Color Urine DK. YELLOW (YELLOW); Glucose Urine UA NEGATIVE (NEGATIVE); Ketones Urine NEGATIVE (NEGATIVE); Leukocyte Esterase Urine NEGATIVE (NEGATIVE); Nitrite Urine NEGATIVE (NEGATIVE); Protein Urine NEGATIVE (NEG/TRACE); Specific Gravity Urine 1.025 (1.005-1.025); Urine Microscopic Indicated NO; Urobilinogen Urine 0.2 EU/dL (0.2-1.0); pH Urine 6.5 (5.0-9.0)
== END 2024-02-28 11:39 | disposition home or self-care (01) ==
LOC: LAB 11:41
PROVIDERS: PCP Nurse Practitioner; Visit Provider Nurse Practitioner
DX: J44.9 Chronic obstructive pulmonary disease, unspecified (principal); E78.2 Mixed hyperlipidemia; M1A.9XX0 Chronic gout, unspecified, without tophus (tophi); I48.0 Paroxysmal atrial fibrillation; K21.9 Gastro-esophageal reflux disease without esophagitis
CPT/HCPCS: 36415; 80053; 80061; 81003; 84550; 85025

== ENCOUNTER 2024-04-09 12:33 | Outpatient (OUT) | payer MEDICARE, MEDICAID, SELFPAY ==
--- NOTE | 2024-04-09 12:45 | CT_ITS ---
[address] [address] Patient Name: MATEO STEARNS MRN: [id number] date: 1960 Sex: M Assigned Patient Location: CT Current Patient Location: CT Accession/Order Number: [id number] Exam Date: 04/09/2024 12:51 Report Date: 04/09/2024 15:18 At the request of: ROBERTO ALVES Procedure: CT chest wo con EXAMINATION: CT chest wo con HISTORY: Pneumonia J18.0, Collapse Of Lung Tissue J98.11 COMPARISON: 01/15/2024 TECHNIQUE: Multi-planar CT images were created with IV contrast. Axial, Coronal, and Sagittal images. Dose reduction techniques were achieved by using automated exposure control and/or adjustment of mA and/or kV according to patient size and/or use of iterative reconstruction technique. FINDINGS: LUNGS: Near complete resolution of right upper and right middle lobe infiltrates with some residual groundglass opacities likely representing chronic scarring. Moderate diffuse centrilobular emphysema. No new significant pulmonary nodule or mass PLEURA: No mass, effusion, or pneumothorax. VASCULATURE: No abnormality. AYLA: No mass or adenopathy. 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 BONES: No bone lesion or fracture. LIMITED ABDOMEN: No suspicious findings. Limited images of the upper abdomen. OTHER: Negative. CT/CT chest wo con IMPRESSION: Near complete resolution of right upper/middle lobe pneumonia Moderate diffuse emphysema Electronically authenticated by: [place] CISNEROS Date: 04/09/2024 15:18
--- OUTSIDE RECORDS SUMMARY | 2024-04-09 12:47 | XMS_ITS | CCD ---
Author Organization [facility] Care Team Providers Care Health Insurance Assessor Name Role Phone Bryan Quick Attending Provider AICKATHIE PRETTY Primary Care Physician AICHHOLZ, DISTRIBUTION OPERATION SUPERVISOR KATHIE Primary Care Unavailable DR LEONOR MA Consulting Unavailable SAMSA ., ROBERTO Admitting Unavailable SAMSA ., ROBERTO Attending Unavailable SAMSA ., ROBERTO Consulting Unavailable AICHHOLZ, DISTRIBUTION OPERATION SUPERVISOR KATHIE Admitting Unavailable AICHHOLZ, DISTRIBUTION OPERATION SUPERVISOR KATHIE Attending Unavailable AICHHOLZ, DISTRIBUTION OPERATION SUPERVISOR KATHIE Consulting Unavailable AICHHOLZ, DISTRIBUTION OPERATION SUPERVISOR KATHIE Primary Care Unavailable AICHHOLZ, DISTRIBUTION OPERATION SUPERVISOR KATHIE Admitting Unavailable AICHHOLZ, DISTRIBUTION OPERATION SUPERVISOR KATHIE Primary Care Unavailable AICHHOLZ, DISTRIBUTION OPERATION SUPERVISOR KATHIE Attending Unavailable AICHHOLZ, DISTRIBUTION OPERATION SUPERVISOR KATHIE Consulting Unavailable AICHHOLZ, DISTRIBUTION OPERATION SUPERVISOR KATHIE Primary Care Unavailable DR LEOONR MA Consulting Unavailable SAMSA ., ROBERTO Admitting Unavailable SAMSA ., ROBERTO Attending Unavailable SAMSA ., ROBERTO Consulting Unavailable DR LEONOR MA Consulting Unavailable SAMSA ., ROBERTO Admitting Unavailable SAMSA ., ROBERTO Attending Unavailable SAMSA ., ROBERTO Consulting Unavailable DR ELSA NOBLE Admitting Unavailable DR OK CISNEROS V Consulting Unavailable AICHHOLZ, DISTRIBUTION OPERATION SUPERVISOR KATHIE Primary Care Unavailable DR ELSA NOBLE Attending Unavailable DR ELSA NOBLE Consulting Unavailable SAMSA ., ROBERTO Admitting Unavailable AICHHOLZ, DISTRIBUTION OPERATION SUPERVISOR KATHIE Primary Care Unavailable SAMSA ., ROBERTO Attending Unavailable SAMSA ., ROBERTO Consulting Unavailable SAMSA ., ROBERTO Admitting Unavailable AICHHOLZ, DISTRIBUTION OPERATION SUPERVISOR KATHIE Primary Care Unavailable DR LEONOR MA Consulting Unavailable SAMSA ., ROBERTO Attending Unavailable SAMSA ., ROBERTO Consulting Unavailable VALDEZ, Pino R Attending Unavailable VALDEZ, Pino R Attending Unavailable VALDEZ, Pino R Attending Unavailable VALDEZ, Pino R Referring Unavailable VALDEZ, Pino R Attending Unavailable VALDEZ, Pino R Admitting Unavailable VALDEZ, Pino R Attending Unavailable VALDEZ, Pino R Admitting Unavailable VALDEZ, Pino R Referring Unavailable VALDEZ, Pino R Attending Unavailable VALDEZ, Pino R Attending Unavailable Princess LIGHT OIL OPERATOR, Kathie Unavailable Curt De Dios MD Primary Care Provider KATHIE SÁNCHEZ Attending Unavailable Allergies Allergy Classification Reported Allergen(s) Allergy Type Date of Onset Reaction(s) Facility (1 source) No Known Medication Allergies; Translations: [No Known Medication Allergies] Propensity to adverse reactions (disorder) [facility] Repository Medications Current Medications Medication Drug Class(es) Dates Sig (Normalized) Sig (Original) [id number] 200 actuat albuterol 0.09 mg/actuat metered dose [...] 08/05/22 Status: Ordered take 1 capsule by [facility] three times daily as needed for cough [...] 05/17/22 Status: Ordered take 1 capsule by [facility] every twenty-four hours in the morning dilTIAZem [...] te Episodic/Chronic Other aftercare (1 source) 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 ? [place]-colored urine due to small amounts of blood in your urine. ? A burning feeling while urinating. ? Blood in your stool (feces) or bleeding from your rectum. ? Blood in your semen. Follow these instructions at home: Medicines ? Take esog-uos-xgroikv and prescription medicines only as told by [...] provider. Document Revised: 05/10/2022 Document Reviewed: 05/10/2022 [email or web address] Patient Education ? 2022 [employer]. Transrectal Ultrasound-Guided Prostate Biopsy A transrectal ultrasound-guided [...] including vitamins, herbs, eye drops, creams, and ufnw-wjr-pitryzv medicines. ? Any problems you or family [...] aspirin (more content not included)... Normal [facility] Urology Office/Clinic Noteon 01-02-2024 Urology [...] [facility] [address], [place] [address] [phone] Additional Instructions: sched repeat TRUS/bx Patient Education [...] Emphysema: Father. I (more content not included)... [facility] Comment on above: Result Comment: Elec tronically Signed By: Pino VALDEZ MD\.br\Date and Time Signed: 01/02/24 13:53 EST\.br\Electronically Co-Signed By: Vesta Cortes\.br\Date and Time Co-Signed: 01/02/24 13:52 EST Lab Reportson 12-01-2023 Lab Reports [id number] #1.00TIFF [facility] IntraOperative Documentson 0 06-09-2023 IntraOperative Documents [id number] #1.00CD:127 [facility] Ambulatory Visit Summaryon 0 06-06-2023 Ambulatory Visit Summary JINNY ALIARAJANIHEMA Payan :1960 Visit Date:06/06/2023 Ambulatory Visit Instructions Your Diagnosis Prostate cancer Sebaceous cyst Tests Performed Urnls Dip Stick Auto w/o Microscopy POC 40039 Your Care Team Attending Physician - Pino [...] CHANDLER, Pino Reina Where: [facility] [place] Patient Educationon 06-06-20 23 Patient Education Oncology [...] likelihood that the cancer will spread. ? [place] 6 or lower: This indicates that the cancer cells look similar to normal prostate cells (well differentiated). ? [place] 7: This indicates that the cancer cells look somewhat similar to normal prostate cells (moderately differentiated). ? [place] 8, 9, or 10: This indicates that [...] external be (more content not included)... Normal [facility] Urology Office/Clinic Noteon 06-06-2023 Urology Office/Clinic Note [...] 04/08/23 - 4.46 S/p TRUS/bx 05/17/23 - Somerset score 6 (3+3) in 2 cores each [...] trace-lysed blood. Follow-up With When Contact Information Pino VALDEZ MD, URL In 6 months [facility] [address] [place] [address] [phone] Additional Instructions: PSA and ANNE-MARIE Patient Education [...] Cigarettes, 02/07/2023 (more content not included)... Normal [facility] Comment on above: Result Comment: Elec tronically Signed By: Pino VALDEZ MD\.br\Date and Time Signed: 06/06/23 11:52 EDT\.br\Electronically Co-Signed By: Vesta Cortes\.br\Date and Time Co-Signed: 06/06/23 11:47 EDT Prostate Histology ([facility]) on 05-24-2023 Prostate Histology Diagnosis Info Invalid Interpretation Code [facility] Comment on above: Result Comment: A:Pr ostate,Left Lateral Base:Needle Biopsy Interpretation - - Acinar adenocarcinoma of prostate; Brenden score 6(3+3); Tumor measures 0.12 cm in length; 8% of the core involved by tumor; 1 of 1 core involved (see comment). MicroScopic Description - B:Prostate,Left Lateral Mid:Needle Biopsy Interpretation - - Benign prostatic tissue. MicroScopic Description - C:Prostate,Left Lateral [place]:Needle Biopsy Interpretation - - Benign prostatic tissue. MicroScopic Description - D:Prostate,Left Base:Needle Biopsy Interpretation - - Acinar adenocarcinoma of prostate; [place] score 6(3+3); Tumor measures 0.08 cm in length; 4% of the core involved by tumor; 1 of 1 core involved (see comment). MicroScopic Description - - High-grade prostatic intraepithelial neoplasia (HGPIN). E:Prostate,Left Mid:Needle Biopsy Interpretation - - Benign prostatic tissue. MicroScopic Description - F:Prostate,Left [place]:Needle Biopsy Interpretation - - Atypical small acinar glands. MicroScopic Description - G:Prostate,Right Base:Needle Biopsy Interpretation - - Benign prostatic tissue. MicroScopic Description - H:Prostate,Right Mid:Needle Biopsy Interpretation - - Benign prostatic tissue. MicroScopic Description - I:Prostate,Right [place]:Needle Biopsy Interpretation - - High-grade prostatic intraepithelial neoplasia (HGPIN). MicroScopic Description - J:Prostate,Right Lateral Base:Needle Biopsy Interpretation - - High-grade prostatic intraepithelial neoplasia (HGPIN). MicroScopic Description - K:Prostate,Right Lateral Mid:Needle Biopsy Interpretation - - Benign prostatic tissue. MicroScopic Description - L:Prostate,Right Lateral [place]:Needle Biopsy Interpretation - - Benign prostatic tissue. [...] cores 1 units cm Highest grade group: [place] score 3+3=6, grade group 1. Highest percentage [...] The performance characteristics were determined by the PeekTila MD. They have not been cleared by the US Food and Drug Administration. The FDA has determined that such clearance or approval is not necessary. Appropriate positive and negative controls are performed and are acceptable. Electronically signed by : on: 05/24/2023 12:41:39 Performed By: #### 1 [id number] ####[facility] [address] [place] [address] Consent for Procedure/Surger yon 05-17-2023 Consent for Procedure/Surgery [id number] 3#1.00CD:127 Normal [facility] Consent for Treatmenton 04-29 Consent for Treatment [id number] #1.00CD:127 Normal [facility] IntraOperative Documentson 0 05-17-2023 IntraOperative Documents [id number]#1.00CD:127 [facility] Main OR Intraoperative Recor don 05-17-2023 Main OR Intraoperative Record IntraOp Document Type FTURO Summary Primary Physician: Pino VALDEZ MD Finalized Date/Time: 05/17/23 11:14:47 Pt. Name: MATEO STEARNS Nuha/Sex: 1960 Male Med Rec #: [id number] Physician: Pino VALDEZ MD Financial #: [id number] Pt. Type: O Room/Bed: / Admit/Disch: 05/17/23 10:34:13 - Institution: Case Times FTURO Entry 1 Patient Times In Room 05/17/23 10:56:00 Out Room 05/17/23 11:14:00 Procedure Times Start 05/17/23 11:01:00 Stop 05/17/23 11:09:00 Anesthesia Times Last Modified By: Diana Kiran RN 05/17/23 11:14:41 Case Attendance FTURO Entry 1 Entry 2 Entry 3 Case Attendee DIONY CHANDLER, Pino Redding DIRECTOR CUSTOM, Chanell Kiran RN, Diana Freeman Role Performed Surgeon - Primary Scrub - Primary Cartoon Designer - Primary Time In 05/17/23 10:56:00 05/17/23 10:56:00 05/17/23 10:56:00 Time Out 05/17/23 11:14:00 05/17/23 11:14:00 05/17/23 11:14:00 Procedure PROSTATE TRANSRECTAL PROSTATE TRANSRECTAL PROSTATE TRANSRECTAL ULTRASOUND WITH BIO(.) ULTRASOUND WITH BIO(.) ULTRASOUND WITH BIO(.) Comments Last Modified By: Qiana MCLEAN, Diana Kiran RN, Diana Silvestre RN 05/17/23 11:14:43 05/17/23 [...] By: Diana Kiran RN 05/17/23 11:14 Normal [facility] Main OR Preoperative Recordo n 05-17-2023 Main OR Preoperative Record Holding Area Document Type FTURO Summary Primary Physician: Pino VALDEZ MD Finalized Date/Time: 05/17/23 10:57:44 Pt. Name: MATEO STEARNS /Sex: 1960 Male Med Rec #: [id number] Physician: Pino VALDEZ MD Financial #: [id number] Pt. Type: O Room/Bed: / Admit/Disch: 05/17/23 [...] Complaints of Pain: No Skin Integrity Intact, [place], Warm, & Dry Vitals - EU Blood Pressure 124/80 Pulse 76 bpm Respirations 20 br/min SPO2 97 % RN Reviewed Yes Last Modified By: Diana Kiran RN 05/17/23 10:57:42 General Comments: Temp 37.0 Finalized By: Diana Kiran RN Document Signatures Signed By: Annia Andersen LPN 05/17/23 10:51 Diana Kiran RN 05/17/23 10:57 Normal [facility] Operative Reporton Operative Report Patient: MATEO STEARNS [...] were sent to pathology for evaluation. Normal [facility] Comment on above: Result Comment: Elec tronically Signed By: Pino VALDEZ MD\.br\Date and Time Signed: 05/17/23 11:16 EDT Outpatient Surgery Discharge Instructionon 05-17-2023 Outpatient Surgery Discharge Instruction [id number] 3#1.00CD:127 Normal [facility] Patient Educationon 05-17-20 23 Patient Education Custom [...] for your post-operative appointment in 1-2 weeks [phone] or [phone] Normal [facility] Prostate Histology ([facility]) on 05-17-2023 PH Method of Extraction Needle Biopsy Normal [facility] Comment on above: Performed By: #### 1 [id number] ####[facility] [address] [place] [address] PH Number of Jars 2 Invalid Interpretation Code [facility] Comment on above: Performed By: #### 1 [id number] ####[facility] [address] [place] [address] PH Specimen 1 L Base Prostate Normal [facility] Comment on above: Performed By: #### 1 [id number] ####[facility] [address] [place] [address] PH Specimen 10 R Lat Bse Prost Normal [facility] Comment on above: Performed By: #### 1 [id number] ####[facility] [address] [address] PH Specimen 11 R Lat Mid Prost Normal [facility] Comment on above: Performed By: #### 1 [id number] ####[facility] [address] [place] [address] PH Specimen 12 R Lat Apx Prost Normal [facility] Comment on above: Performed By: #### 1 [id number] ####[facility] [address] [place] [address] PH Specimen 2 L Mid Prostate Normal [facility] Comment on above: Performed By: #### 1 [id number] ####[facility] [address] [place] [address] PH Specimen 3 L Apx Prostate Normal [facility] Comment on above: Performed By: #### 1 [id number] ####[facility] [address] [place] [address] PH Specimen 4 L Lat Bse Prost Normal [facility] Comment on above: Performed By: #### 1 [id number] ####[facility] [address] [place] [address] PH Specimen 5 L Lat Mid Prost Normal [facility] Comment on above: Performed By: #### 1 [id number] ####[facility] [address] [place] [address] PH Specimen 6 L Lat Apx Prost Normal [facility] Comment on above: Performed By: #### 1 [id number] ####[facility] [address] [place] [address] PH Specimen 7 R Base Prostate Normal [facility] Comment on above: Performed By: #### 1 [id number] ####[facility] [address] [place] [address] PH Specimen 8 R Mid Prostate Normal [facility] Comment on above: Performed By: #### 1 [id number] ####[facility] [address] [place] [address] PH Specimen 9 R Apx Prostate Normal [facility] Comment on above: Performed By: #### 1 [id number] ####[facility] [address] [place] [address] PH Type of Service Technical Only Normal [facility] Comment on above: Performed By: #### 1 [id number] ####[facility] [address] [address] Lab Reportson 05-16-2023 Lab Reports [id number] #1.00CD:127 Normal [facility] Insurance Correspondenceon 0 04-29-2023 Insurance Correspondence [id number] 5#1.00CD:127 Normal [facility] PSA, FREE AND TOTAL RATIOon 04-13-2023 % Free PSA 12.1 % Normal [facility] Comment on above: Result Comment: The table [...] men. Performed By: #### H ISTGAL #### [facility] [address] [place] [address] Dr. James Crowley Prostate specific Ag [Mass/Vol] 3.4 ng/mL Normal 0.0-4.0 [facility] Comment on above: Result Comment: Rosa Elena DESHPANDE methodology. . According to the [employer], Serum PSA should decrease and [...] disease. Performed By: #### H ISTGAL #### [facility] [address] [place] [address] Dr. James Crowley PSA, Free 0.41 ng/mL Normal N/A [facility] Comment on above: Result Comment: Rosa Elena edwards ECLABIODUN methodology. Performed By: #### H ISTGAL #### [facility] [address] [place] [address] Dr. James Crowley CBC AUTO DIFFon 04-08-2023 BASO # 0.1 103/ul Normal 0.0-0.1 [facility] Comment on above: Performed By: #### C BC #### [facility] [address] [place] [address] Dr. James Crowley Basophils/100 WBC (Bld) 0.5 % Normal 0.2-2.0 [facility] Comment on above: Performed By: #### C BC #### [facility] [address] [place] [address] Dr. James Crowley EO # 0.1 103/ul Normal 0.0-0.7 [facility] Comment on above: Performed By: #### C BC #### [facility] [address] [place] [address] Dr. James Crowley Eosinophils/100 WBC (Bld) 1.3 % Normal 0.9-7.0 [facility] Comment on above: Performed By: #### C BC #### [facility] [address] [place] [address] Dr. James Crowley Erythrocyte distribution width (RBC) [Ratio] 13.5 % Normal 11.0-15.0 [facility] Comment on above: Performed By: #### C BC #### [facility] [address] [place] [address] Dr. James Crowley Hematocrit (Bld) [Volume fraction] 48.4 % Normal 42.0-54.0 [facility] Comment on above: Performed By: #### C BC #### [facility] [address] [place] [address] Dr. James Crowley Hemoglobin (Bld) [Mass/Vol] 15.6 g/dL Normal 14.0-18.0 [facility] Comment on above: Performed By: #### C BC #### [facility] [address] [place] [address] Dr. James Crowley IG # 0.08 10e3/ul Critically high 0.00-0.03 [facility] Comment on above: Performed By: #### C BC #### [facility] [address] [place] [address] Dr. James Crowley IG % 0.8 % Critically high 0.0-0.5 [facility] Comment on above: Performed By: #### C BC #### [facility] [address] [place] [address] Dr. James Crowley LYMPH # 3.1 103/ul Normal 1.2-3.8 [facility] Comment on above: Performed By: #### C BC #### [facility] [address] [place] [address] Dr. James Crowley Lymphocytes/100 WBC (Bld) 29.8 % Normal 20.5-60.0 [facility] Comment on above: Performed By: #### C BC #### [facility] [address] [place] [address] Dr. James Crowley MANUAL DIFF REQ NO Normal [facility] Comment on above: Performed By: #### C BC #### [facility] [address] [address] [address] James Crowley MCH (RBC) [Entitic mass] 29.3 pg Normal 25.9-34.0 [facility] Comment on above: Performed By: #### C BC #### [facility] [address] [place] [address] Dr. James Crowley MCHC (RBC) [Mass/Vol] 32.2 g/dL Normal 29.9-35.2 [facility] Comment on above: Performed By: #### C BC #### [facility] [address] [place] [address] Dr. James Crowley MCV (RBC) [Entitic vol] 90.8 fL Normal 80.0-94.0 [facility] Comment on above: Performed By: #### C BC #### [facility] [address] [place] [address] Dr. James Crowley MONO # 0.6 103/ul Normal 0.3-0.8 [facility] Comment on above: Performed By: #### C BC #### [facility] [address] [place] [address] Dr. James Crowley Monocytes/100 WBC (Bld) 5.9 % Normal 1.7-12.0 [facility] Comment on above: Performed By: #### C BC #### [facility] [address] [place] [address] Dr. James Crowley NEUT # 6.4 103/ul Normal 1.4-6.5 [facility] Comment on above: Performed By: #### C BC #### [facility] [address] [place] [address] Dr. James Crowley Neutrophils/100 WBC (Bld) 61.7 % Normal 43.0-75.0 [facility] Comment on above: Performed By: #### C BC #### [facility] [address] [place] [address] Dr. James Crowley Platelet mean volume (Bld) [Entitic vol] 9.1 fL Critically low 9.5-13.5 [facility] Comment on above: Performed By: #### C BC #### [facility] [address] [place], [place] [address] Dr. James Crowley PLT 320 103/ul Normal 150-450 [facility] Comment on above: Performed By: #### C BC #### [facility] [id number] James Crowley RBC 5.33 106/ul Normal 4.70-6.10 [facility] Comment on above: Performed By: #### C BC #### [facility] [id number] James Crowley WBC 10.4 103/ul Normal 4.0-11.0 [facility] Comment on above: Performed By: #### C BC #### [facility] [id number]ley [address] CHEST W CONon [...] by: LEONOR MA Date: 2023-04-08 10:41 Normal [facility] LIPID PROFILEon 04-08-2023 CHOL-HDL RATIO NORM SEE BELOW Normal [facility] Comment on above: Result Comment: 3.3 - 4.4 LOW RISK 4.4 - 7.1 AVERAGE RISK 7.1 - 11.0 MODERATE RISK >11.0 HIGH RISK Performed By: #### U NEO, LIPID #### [facility] [address] [address] [address] James Crowley Cholesterol [Mass/Vol] 204 mg/dL Critically high <=200 [facility] Comment on above: Performed By: #### U NEO, LIPID #### [facility] [address] [address] [address] James Crowley Cholesterol in HDL [Mass/Vol] 55 mg/dL Normal 40-60 [facility] Comment on above: Performed By: #### U NEO, LIPID #### [facility] [address] [address] [address] James Crowley Cholesterol in LDL [Mass/Vol] 115.2 mg/dL Normal [facility] Comment on above: Performed By: #### U NEO, LIPID #### [facility] [address] [address] [address] James Crowley Cholesterol.total/Cho lesterol in HDL [Mass ratio] 3.7 {ratio} Normal [facility] Comment on above: Performed By: #### U NEO, LIPID #### [facility] [address] [address] [address] James Crowley HDL NORMAL > or = 60 mg/dl - LOW CARDIOVASCULAR RISK <40 mg/dl - HIGH CARDIOVASCULAR RISK Normal [facility] Comment on above: Performed By: #### U NEO, LIPID #### [facility] [address] [address] [address] James Crowley LDL CALC NORMAL SEE BELOW Normal [facility] Comment on above: Result Comment: <100 mg/dl OPTIMAL 100 - 129 mg/dl NEAR OR ABOVE OPTIMAL 130 - 159 mg/dl BORDERLINE HIGH 160 - 189 mg/dl HIGH >190 mg/dl VERY HIGH Performed By: #### U NEO, LIPID #### [facility] [address] [address] [address] James Crowley Triglyceride [Mass/Vol] 169 mg/dL Critically high <=150 [facility] Comment on above: Performed By: #### U NEO, LIPID #### [facility] [address] [place] [address] Dr. James Crowley VLDL CALC 33.8 mg/dL Normal [facility] Comment on above: Performed By: #### U NEO, LIPID #### [facility] [address] [address] [address] James Crowley PROF 14(COMP METB)on 023 Albumin [Mass/Vol] 3.7 g/dL Normal 3.4-5.0 [facility] Comment on above: Performed By: #### U NEO, LIPID #### [facility] [address] [place] [address] Dr. James Crowley Albumin/Globulin [Mass ratio] 0.9 {ratio} Normal [facility] Comment on above: Performed By: #### U NEO, LIPID #### [facility] [address] [place] [address] Dr. James Crowley ALP [Catalytic activity/Vol] 86 U/L Normal 46-116 [facility] Comment on above: Performed By: #### U NEO, LIPID #### [facility] [address] [place] [address] Dr. James Crowley ALT [Catalytic activity/Vol] 33 U/L Normal 16-63 [facility] Comment on above: Performed By: #### U NEO, LIPID #### [facility] [address] [place] [address] Dr. James Crowley Anion gap [Moles/Vol] 14.8 mmol/L Normal [facility] Comment on above: Performed By: #### U NEO, LIPID #### [facility] [address] [place] [address] Dr. James Crowley AST [Catalytic activity/Vol] 16 U/L Normal 15-37 [facility] Comment on above: Performed By: #### U NEO, LIPID #### [facility] [address] [place] [address] Dr. James Crowley Bilirubin [Mass/Vol] 0.7 mg/dL Normal 0.2-1.0 [facility] Comment on above: Performed By: #### U NEO, LIPID #### [facility] [address] [place] [address] Dr. James Crowley Calcium [Mass/Vol] 9.1 mg/dL Normal 8.5-10.1 [facility] Comment on above: Performed By: #### U NEO, LIPID #### [facility] [address] [place] [address] Dr. James Crowley Chloride [Moles/Vol] 107 mmol/L Normal 98-107 [facility] Comment on above: Performed By: #### U NEO, LIPID #### [facility] [address] [place] [address] Dr. James Crowley CO2 [Moles/Vol] 28.0 mmol/L Normal 21.0-32.0 [facility] Comment on above: Performed By: #### U ENO, LIPID #### [facility] [address] [place] [address] Dr. James Crowley Creatinine [Mass/Vol] 1.10 mg/dL Normal 0.70-1.30 [facility] Comment on above: Performed By: #### U NEO, LIPID #### [facility] [address] [place] [address] Dr. James Crowley EGFR-AF NAURUAN >60 Normal >=60 [facility] Comment on above: Performed By: #### U NEO, LIPID #### [facility] [address] [place] [address] Dr. James Crowley EGFR-NON AF NAURUAN >60 Normal >=60 [facility] Comment on above: Performed By: #### U ENO, LIPID #### [facility] [address] [place] [address] Dr. James Crowley Globulin (S) [Mass/Vol] 3.9 g/dL Normal [facility] Comment on above: Performed By: #### U NEO, LIPID #### [facility] [address] [place] [address] Dr. James Crowley Glucose [Mass/Vol] 98 mg/dL Normal 74-106 [facility] Comment on above: Performed By: #### U NEO, LIPID #### [facility] [address] [place] [address] Dr. James Crowley Potassium [Moles/Vol] 3.8 mmol/L Normal 3.5-5.1 [facility] Comment on above: Performed By: #### U NEO, LIPID #### [facility] [address] [address] [address] James Crowley Protein [Mass/Vol] 7.6 g/dL Normal 6.4-8.2 [facility] Comment on above: Performed By: #### U NEO, LIPID #### [facility] [address] [place] [address] Dr. James Crowley Sodium [Moles/Vol] 146 mmol/L Critically high 136-145 [facility] Comment on above: Performed By: #### U NEO, LIPID #### [facility] [address] [place] [address] Dr. James Crowley Urea nitrogen [Mass/Vol] 18.0 mg/dL Normal 7.0-18.0 [facility] Comment on above: Performed By: #### U NEO, LIPID #### [facility] [address] [place] [address] Dr. James Crowley Urea nitrogen/Creatinine [Mass ratio] 16.4 mg/mg Normal [facility] Comment on above: Performed By: #### U NEO, LIPID #### [facility] [address] [place] [address] Dr. James Crowley URIC ACID SERUMon 04-08-2023 Urate [Mass/Vol] 6.7 mg/dL Normal 3.5-7.2 [facility] Comment on above: Performed By: #### U NEO, LIPID #### [facility] [address] [place] [address] Dr. James Crowley Patient Educationon 02-08-20 23 [...] if anything looks unusual. 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 Where to find more information ? National Cancer [place]: https://www.cancer.g ov/about-cancer/scre ening ? Centers for Disease Control and Prevention: https://www.cdc.gov/ cancer/dcpc/preventi on/screening.htm ? [employer]: https://www.cancer.o rg/latest-news/4-can kqp-njylpllrx-akffo- for-men.html Contact a health care (more content not included)... Normal [facility] Urology Office/Clinic Noteon 02-07-2023 Urology Office/Clinic Note [...] Urology [address], [place] [address]- Additional Instructions: PRN Patient Education Cancer Screening [...] Father. Immunizations Vaccine Date Status SARS-CoV-2 (COVID-19) [id number] 09/25/2022 Recorded SARS-CoV-2 (COVID-19) mRNA BNT-162b2 vax [...] Protein Urine Dipstick: Negative (02/07/23 12:43:00) Specific [place] Urine Dipstick: 1.010 (02/07/23 12:43:00) Urine Appearance Urine Dipstick: Clear (02/07/23 12:43:00) Urine Color Urine Dipstick: Light yellow (02/07/23 12:43:00) Urobilinogen Urine Dipstick: Normal 0.2-1 EU/dl (02/07/23 12:43:00) pH Uri (more content not included)... [facility] Comment on above: Result Comment: Elec tronically Signed By: Pino VALDEZ MD\.br\Date and Time Signed: 02/07/23 13:05 EDT\.br\Electronically Co-Signed By: Radha Nobles\.br\Date and Time Co-Signed: 02/07/23 13:00 EDT Consent for Procedure/Surger yon 01-25-2023 Consent for Procedure/Surgery [id number] 8#1.00CD:127 [facility] Consent for Treatmenton 12-30 Consent for Treatment [id number] #1.00CD:127 [facility] IntraOperative Documentson 0 01-25-2023 IntraOperative Documents [id number] 3#1.00CD:127 Normal [facility] Main OR Intraoperative Recor don 01-25-2023 Main OR Intraoperative Record IntraOp Document Type FTURO Summary Primary Physician: Pino VALDEZ MD Finalized Date/Time: 01/25/23 14:02:36 Pt. Name: MATEO STEARNS Schuyler Murray/Sex: 1960 Male Med Rec #: [id number] Physician: Pino VALDEZ MD Financial #: [id number] Pt. Type: O Room/Bed: / Admit/Disch: 01/25/23 12:39:00 - Institution: Case Times FTURO Entry 1 Patient Times In Room 01/25/23 13:35:00 Out Room 01/25/23 14:06:00 Procedure Times Start 01/25/23 13:40:00 Stop 01/25/23 14:01:00 Anesthesia Times Last Modified By: Jigar MCLEAN, BRADLEYOR, Kinjal 01/25/23 14:01:59 Case Attendance FTURO Entry 1 Entry 2 Entry 3 Case Attendee Pino VALDEZ MD RN, CNOR, Oswaldo MORENO, Diana Layton Role Performed Surgeon - Primary Cartoon Designer - Primary Scrub - Primary Time In 01/25/23 13:35:00 01/25/23 13:35:00 01/25/23 13:35:00 Time Out 01/25/23 14:06:00 01/25/23 14:06:00 01/25/23 14:06:00 Procedure SCROTAL/PERINEAL SCROTAL/PERINEAL SCROTAL/PERINEAL ABSCESS IandD(.) ABSCESS IandD(.) ABSCESS IandD(.) Comments Last Modified By: Jigar RN, CNOR, Jigar RN, CNOR, Jigar RN, BRADLEYOR, Kinjal 01/25/23 Kinjal 01/25/23 Kinjal 01/25/23 [...] MICA Kimball RN, Ruthann 01/25/23 14:02 Normal [facility] Main OR Preoperative Recordo n 01-25-2023 Main OR Preoperative Record Holding Area Document Type FTURO Summary Primary Physician: Pino VALDEZ MD Finalized Date/Time: 01/25/23 13:41:59 Pt. Name: MATEO STEARNS /Sex: 1960 Male Med Rec #: [id number] Physician: Pino VALDEZ MD Financial #: [id number] Pt. Type: O Room/Bed: / Admit/Disch: 01/25/23 [...] No Pain Comment: na Skin Integrity Intact, [place], Warm, & Dry Vitals - EU Blood Pressure 146/95 Pulse 107 bpm Respirations 18 br/min SPO2 91 % RN Reviewed Yes Last Modified By: MICA Kimball RN, Ruthann 01/25/23 13:41:58 General Comments: temp:36.7 Finalized By: Jigar MCLEAN, Kinjal NINO Document Signatures Signed By: Harsha MEJIADomonique Oj 01/25/23 13:01 MICA Kimball RN, Ruthann 01/25/23 13:42 Normal [facility] Operative Reporton Operative Report Patient: MATEO STEARNS [...] a week to remove the sutures. Normal [facility] Comment on above: Result Comment: Elec tronically [...] pain medication and antibiotics as directed Normal [facility] CT CHEST WO CONon 01-04-2023 CT CHEST [...] by: LEONOR MA Date: 2023-01-04 10:52 Normal [facility] CT CHEST WO CONon 10-07-2022 CT CHEST [...] LEONOR MA Date: 2022-10-07 16:05 Normal [facility] ACID FAST SMEAR AND CXon Acid Fast Culture Negative Normal [facility] Comment on above: Result Comment: No a tomi fast bacilli isolated after 6 weeks. Performed By: #### U NEO, LIPID #### [facility] [address] [address] [address] James Crowley Acid Fast Smear Negative Normal [facility] Comment on above: Performed By: #### U NEO, LIPID #### [facility] [address] [address] [address] James Crowley [employer] Specimen Processing Concentration Normal [facility] Comment on above: Performed By: #### U NEO, LIPID #### [facility] [address] [address] [address] James Crowley FUNGAL AB QUANTITAIVE DOUBLE IMMUNODIFFUon 08-22-2022 Aspergillus flavus Negative Normal Neg:<1:1 [facility] Comment on above: Performed By: #### F UNGUYI #### [facility] [address] [address] [address] James Crowley Aspergillus fumigatus Negative Normal Neg:<1:1 [facility] Comment on above: Performed By: #### F UNGUYI #### [facility] [address] [address] [address] James Crowley Aspergillus niger Negative Normal Neg:<1:1 [facility] Comment on above: Performed By: #### F UNGUYI #### [facility] [address] [address] [address] James Crowlye Blastomyces Negative Normal Neg:<1:1 [facility] Comment on above: Performed By: #### F UNGUYI #### [facility] [address] [place] [address] Dr. James Crowley COXSACKIE B VIRUS ANTIBODIES on 08-21-2022 [place] B-1 Ab Negative Normal Neg:<1:8 [facility] Comment on above: Performed By: #### C OXSBV #### [facility] [address] [place] [address] Dr. James Crowley [place]ie B-2 Ab Negative Normal Neg:<1:8 [facility] Comment on above: Performed By: #### C OXSBV #### [facility] [address] [address] [address] James Crowley coxsackie B-3 Ab Negative Normal Neg:<1:8 [facility] Comment on above: Performed By: #### C OXSBV #### [facility] [address] [address] [address] James Crowley [place] B-4 Ab Negative Normal Neg:<1:8 [facility] Comment on above: Performed By: #### C OXSBV #### [facility] [address] [address] [address] James Crowley [place] B-5 Ab Negative Normal Neg:<1:8 [facility] Comment on above: Performed By: #### C OXSBV #### [facility] [address] [address] [address] James Crowley Coxsarembertoie B-6 Ab Negative Normal Neg:<1:8 [facility] Comment on above: Performed By: #### C OXSBV #### [facility] [address] [address] [address] James Crowley HISTOPLASMA CAP AB QUANT DID on 08-21-2022 Histoplasma Mycelial CF Ab. Negative Normal Neg:<1:2 [facility] Comment on above: Performed By: #### H ISTGAL #### [facility] [address] [address] [address] James Crowley Histoplasma Yeast CF Ab Negative Normal Neg:<1:2 [facility] Comment on above: Performed By: #### H ISTGAL #### [facility] [address] [address] [address] James Crowley [place] A VIRUS AB IGMon 0 08-20-2022 [place] A16 IgM Negative Normal Neg:<1:10 [facility] Comment on above: Performed By: #### C OXSIGM #### [facility] [address] [address] [address] James Crowley [place] A24 IgM Negative Normal Neg:<1:10 [facility] Comment on above: Performed By: #### C OXSIGM #### [facility] [address] [place] [address] Dr. James Crowley [place] A7 IgM Negative Normal Neg:<1:10 [facility] Comment on above: Performed By: #### C OXSIGM #### [facility] [address] [place] [address] Dr. James Crowley [place] A9 IgM Negative Normal Neg:<1:10 [facility] Comment on above: Performed By: #### C OXSIGM #### [facility] [address] [place] [address] Dr. James Crowley HISTOPLASMA GALACTOMANNAN AG URINEon 08-20-2022 Histoplasma Gal'shwetha Ag <0.5 Normal <0.5 ng/mL [facility] Comment on above: Performed By: #### H ISTGAL #### [facility] [address] [place] [address] Dr. James Crowley QUANTIFERON TB GOLD PLUSon 0 08-20-2022 QuantiFERON Criteria Comment [facility] Comment on above: Result Comment: Vick [...] test. Performed By: #### Q NTTB #### [facility] [address] [place] [address] Dr. James Crowley QuantiFERON Incubation Incubation performed. Normal [facility] Comment on above: Performed By: #### Q NTTB #### [facility] [address] [place] [address] Dr. James Crowley QuantiFERON Mitogen Value >10.00 Normal [facility] Comment on above: Performed By: #### Q NTTB #### [facility] [address] [place] [address] Dr. James Crowley QuantiFERON Nil Value 0.04 IU/mL Normal [facility] Comment on above: Performed By: #### Q NTTB #### [facility] [address] [place] [address] Dr. James Crowley QuantiFERON TB1 Ag Value 0.04 IU/mL Normal [facility] Comment on above: Performed By: #### Q NTTB #### [facility] [address] [place] [address] Dr. James Crowley QuantiFERON TB2 Ag Value 0.05 IU/mL Normal [facility] Comment on above: Performed By: #### Q NTTB #### [facility] [address] [place] [address] Dr. James Crowley QuantiFERON-TB Gold Plus Negative Normal Negative [facility] Comment on above: Result Comment: No r esponse to M tuberculosis antigens detected. Infection with M tuberculosis is unlikely, but high risk individuals should be considered for additional testing (ATS/IDSA/CDC Clinical Practice Guidelines, 2017). The reference range is an Antigen minus Nil result of <0.35 IU/mL. Chemiluminescence immunoassay methodology Performed By: #### Q NTTB #### [facility] [address] [place] [address] Dr. James Crowley CREATININEon 08-18-2022 Creatinine [Mass/Vol] 0.97 mg/dL Normal 0.70-1.30 [facility] Comment on above: Performed By: #### H ISTGAL #### [facility] [address] [place] [address] Dr. James Crowley EGFR-AF NAURUAN >60 Normal >=60 [facility] Comment on above: Performed By: #### H ISTGAL #### [facility] [address] [place] [address] Dr. James Crowley EGFR-NON AF NAURUAN >60 Normal >=60 [facility] Comment on above: Performed By: #### H ISTGAL #### [facility] [address] [place] [address] CHEST W CONon [...] LEONOR MA Date: 2022-08-18 10:27 Normal [facility] CULTURE SPUTUMon 08-18-2022 CULTURE SPUTUM Isolate 1 Haemophilus parainfluenzae Moderate growth of Normal [facility] Comment on above: Result Comment: Beta -Lactamase: Negative Performed By: #### H ISTGAL #### [facility] [address] [address] [address] James Crowley SPUTUM GRAM STAINon 08-18-20 22 COMMENTS Normal [facility] Comment on above: Performed By: #### H ISTGAL #### [facility] [address] [address] [address] James Crowley DIPHTHEROIDS Normal [facility] Comment on above: Performed By: #### H ISTGAL #### [facility] [address] [address] [address] James Crowley EPITHELIALS <25 Normal [facility] Comment on above: Performed By: #### H ISTGAL #### [facility] [address] [address] [address] James Crowley FUNGAL ELEMENTS Normal [facility] Comment on above: Performed By: #### H ISTGAL #### [facility] [address] [address] [address] James Crowley GRAM NEG BACILLI Normal [facility] Comment on above: Performed By: #### H ISTGAL #### [facility] [address] [address] [address] James KAN NEG DIPPLOCOCCI FEW Normal [facility] Comment on above: Performed By: #### H ISTGAL #### [facility] [address] [address] [address] James Crowley GRAM POS BACILLI Normal [facility] Comment on above: Performed By: #### H ISTGAL #### [facility] [address] [address] [address] James Crowley GRAM POSITIVE COCCI FEW Normal [facility] Comment on above: Performed By: #### H ISTGAL #### [facility] [address] [address] [address] James Crowley WBC (Bld) [#/Vol] 10*3/uL Normal [facility] Comment on above: Performed By: #### H ISTGAL #### [facility] [address] [address] [address] James Crowley XR RIBS RT PA [...] with contrast is recommended Electronically authenticated by: KO CISNEROS Date: 2022-08-12 13:02 Normal [facility] Covid-19 PCR (CVDTBH)on SARS-CoV-2 (COVID-19) RNA SOURAV+probe Ql (Unsp spec) Not detected Normal NOT DETECTED [facility] Comment on above: Result Comment: When diagnostic [...] for this test is supported by the [place] Man of Health and Human Service's declaration that [...] used). Performed By: #### C VDTB #### [facility] [address] [place] [address] Dr. James Rey 03-24-2021 L Specimen: [id number] Received: 03/24/21 Status: [place] Nix Num: [id number] Spec Type: Surgical Subm Dr: Brayn Quick MD Tissues: A Skin-Other than Cyst, tag, debridement or plastic repair (LT NASAL DORSUM) Procedures: HE Stain, Gross/Micro L4 Patient Age/Sex Location Account Attending Physician Mateo Stearns/M [place] [id number] Bryan Quick MD SPEC NUM: [id number] RECD: 03/24/21 STATUS: [place] NIX NUM: [id number] FRANCISCA: 03/24/[address] [facility] DR: Bryan Quick MD ENTERED: 03/24/[address] [facility] [address]: MYAH TYPE: Surgical DEPT: S ORDERED: [...] microscopic findings support the above pathologic diagnosis. [id number] Specimen: [id number] Received: 03/24/21 Status: [place] Dinah Num: [id number] Spec Type: Surgical Subm Dr: Bryan Quick MD Tissues: A Skin-Other than Cyst, tag, debridement or plastic repair (LT NASAL DORSUM) Procedures: REINA Stain, Gross/Micro L4 Patient: Mateo Stearns [id number] (Continued) Signed (signature on file) Cindy Garcia MD 03/25/21 0527 [facility] Vital Signs Date Time Vital Sign Value Performing Clinician Dom jesus 06-06-2023 10:36-0400 Blood Pressure Location Pino VALDEZ [facility] 06-06-2023 10:36-0400 Diastolic blood pressure 76 mm[Hg] Pino VALDEZ [facility] 06-06-2023 10:36-0400 Heart rate 72 /min Pino VALDEZ [facility] 06-06-2023 10:36-0400 Respiratory rate 16 /min Pino VALDEZ [facility] 06-06-2023 10:36-0400 Systolic blood pressure 130 mm[Hg] Pino VALDEZ [facility] 02-07-2023 12:42-0400 Blood Pressure Location Pino VALDEZ [facility] 02-07-2023 12:42-0400 Diastolic blood pressure 77 mm[Hg] Pino VALDEZ [facility] 02-07-2023 12:42-0400 Heart rate 74 /min Pino VALDEZ [facility] 02-07-2023 12:42-0400 Systolic blood pressure 138 mm[Hg] Pino VALDEZ [facility] 05-17-2022 12:56-0400 Blood Pressure Location Pino VALDEZ [facility] 05-17-2022 12:56-0400 Diastolic blood pressure 87 mm[Hg] Pino VALDEZ [facility] 05-17-2022 12:56-0400 Heart rate 79 /min Pino VALDEZ [facility] 05-17-2022 12:56-0400 Respiratory rate 16 /min P[facility] VALDEZ [facility] 05-17-2022 12:56-0400 Systolic blood pressure 139 mm[Hg] Pino VALDEZ [facility] Encounters Encounter Date Encounter Type Care Provider Facility Start: 05-21-2024 ambulatory Pino VALDEZ Facili ty:[facility] Start: 02-28-2024 End: 02-28-2024 ambulatory KATHIE PRINCESS Not Available Start: 01-05-2024 Clinisync Result Encounter Generic External Data Provider [facility] External Department Unsolicited Start: 01-05-2024 Clinisync Result Encounter Generic External Data Provider [facility] External Department Unsolicited Start: 01-02-2024 End: 01-03-2024 ambulatory Pino VALDEZ Facility:[facility] Start: 07-22-2023 ambulatory Pino Omalleyi ty:[facility] Start: 06-06-2023 End: 06-07-2023 ambulatory Pino VALDEZ Facility:[facility] Start: 06-06-2023 End: 06-06-2023 Patient encounter procedure Pino VALDEZ [facility] Start: 05-17-2023 End: 05-18-2023 ambulatory Pino VALDEZ Facility:[facility] Start: 05-17-2023 End: 05-17-2023 Patient encounter procedure Pino VALDEZ [facility] Start: 04-12-2023 End: 04-13-2023 ambulatory DISTRIBUTION OPERATION SUPERVISOR KATHIE SÁNCHEZ Facility:[facility] Start: 04-08-2023 End: 04-09-2023 ambulatory DISTRIBUTION OPERATION SUPERVISOR KATHIE PRINCESS Facility: Start: 02-07-2023 End: 02-08-2023 ambulatory Pino Reina DIONY Facility:[facility] Start: 02-07-2023 End: 02-07-2023 Patient encounter procedure Pino VALDEZ [facility] Start: 01-25-2023 End: 01-26-2023 ambulatory Pino Latosha DIONY Facility:[facility] Start: 01-04-2023 End: 01-05-2023 ambulatory DISTRIBUTION OPERATION SUPERVISOR KATHIE SÁNCHEZ Facility:[facility] Start: 10-07-2022 End: 10-08-2022 ambulatory DISTRIBUTION OPERATION SUPERVISOR KATHIE SÁNCHEZ Facility:[facility] Start: 08-18-2022 End: 08-19-2022 ambulatory ROBERTO SAMSA . Facility:[facility] Start: 08-12-2022 End: 08-12-[address] ELSA RAE . Facility:[facility] Start: 07-20-2022 End: 08-11-2022 Pre-admission assessment Pino VALDEZ [facility] Start: 05-17-2022 End: 06-16-2022 Pre-admission assessment Pino VALDEZ [facility] Start: 05-17-2022 End: 05-17-2022 Patient encounter procedure Pino VALDEZ [facility] Start: 05-03-2022 End: 05-03-2022 ambulatory ROBERTO SAMSA . Facility:[facility] Start: 03-24-2021 End: 03-24-2021 Departed Referred Bryan Quick Work Phone: [facility] [place] Procedures Date Procedure Procedure Detail Performing Clinician Start: 01-05-2024 BLOOD CULTURE 2 Generic External Data Provider Start: 01-05-2024 BLOOD CULTURE 1 Generic External Data Provider Start: 04-08-2023 PSA screening PROMISE KATHIE PRINCESS Comment on above: Performed By: #### P [facility] #### [facility] [address] [address] [address] James Crowley Colonoscopy Pino VALDEZ Procedure on foot Pino LEON Repair of hip Pino VALDEZ Comment on above: Both hips Both hips Transrectal needle b iopsy of prostate Pino VALDEZ Plan of Treatment Date Care Activity Detail Author Start: 07-29-2023 Influenza vaccination Influenza Vacc ine (#1) [facility] Start: 2023 Pneumococcal Vaccine : 65+ Years (1 - PCV) Pneumococcal Vaccine: 65+ Years (1 - PCV) [facility] Start: 1960 Medicare Annual Well ness (AWV) Medicare Annual Wellness (AWV) [facility] Start: 1960 Screening for malign ant neoplasm of colon [facility] BLOOD CULTURE 1 BLOOD CULTURE 1 Lab Routine 01/05/2024 4:58 PM EST [facility] BLOOD CULTURE 2 BLOOD CULTURE 2 Lab Routine 01/05/2024 5:04 PM EST [facility] Healthcare Immunizations Immunization Date Immunization Notes Care Provider [facility] 09-25-2022 SARS-CoV-2 (COVID-19 ) mRNAMUL.[id number] Pino VALDEZ [facility] 05-26-2021 SARS-CoV-2 (COVID-19 ) mRNA BNT-162b2 vax Pino VALDEZ [facility] 05-05-2021 SARS-CoV-2 (COVID-19 ) mRNA BNT-162b2 vax Pino VALDEZ [facility] 03-11-2021 tetanus toxoid, redu liyah diphtheria toxoid, and acellular pertussis vaccine, adsorbed Pino VALDEZ [facility] Payers Date Payer Category Payer Medicare ANTHEM MEDICARE ADVANTAGE ANTHEM MEDICARE ADVANTAGE [id number] 2022-Present [address] [place] [address] [id number] 2020 Medicaid MEDICAID [place] [facility] [id number] 2020-Present [phone] [address] [place] [address] Medicaid [id number] 1959 Medicaid [id number] 1959 Medicare [id number] 1959 Unknown [id number] 1958 Unknown [id number] 2.16.840.1.953702.3.579.2.593 1958 Unknown [id number] 2.16.840.1.322763.3.579.2.593 1958 Unknown [id number] 2.16.840.1.318291.3.579.2.593 1958 Unknown [id number] 2.16.840.1.596752.3.579.2.593 1958 Unknown [id number] 2.16.840.1.704261.3.579.2.593 1958 Unknown [id number] 2.16.840.1.823590.3.579.2.593 1958 Unknown [id number] 2.16.840.1.328434.3.579.2.593 1958 Unknown [id number] 2.16.840.1.455393.3.579.2.593 1958 Unknown [id number] 2.16.840.1.562527.3.579.2.727 1958 Unknown [id number] 2.16.840.1.436023.3.579.2.727 1958 Unknown [id number] 2.16.840.1.272213.3.579.2.727 1958 Unknown [id number] 2.16.840.1.960067.3.579.2.72 1958 Unknown [id number] 2.16.840.1.296404.3.579.2.72 1958 Unknown [id number] 2.16.840.1.731495.3.579.2.727 1958 Unknown [id number] 2.16.840.1.619365.3.579.2.72 1958 Unknown [id number] 2.16.840.1.468758.3.579.2.1259 Self-pay Self Pay [id number] Social History Date Type Detail Facility Tobacco smoking stat [facility] Unknown if ever smoked [facility] Start: 1960 Sex Assigned At Male [facility] Start: 05-17-2022 End: 11-13-2023 Tobacco smoking status Ex-smoker (finding) [facility] Start: 11-13-2023 [facility] At [facility] Tobacco smoking status [facility] End: 11-28-2015 History of tobacco use Current smoker [facility] End: 11-28-2015 History of tobacco use Cigarette Smoker [facility] Start: 11-13-2023 Cigarettes smoked current (pack per day) - Reported 2 [facility] Start: 11-13-2023 Alcohol intake Ex-drinker (finding) [facility] Start: 1960 Sex Assigned At Not on file [facility] Goals Date Patient Goal Desired Activity /State Functional Status Date Assessment Result Facility 06-06-2023 Functional Status N/A [facility] 05-17-2023 Functional Status N/A [facility] 02-07-2023 Functional Status N/A [facility] 08-05-2022 N/A [facility] 06-11-2022 Functional Status N/A [facility] 05-17-2022 Functional Status N/A [facility] Clinical Notes 05-17-2022 to 06-06-2023 Note [...] stress of having cancer. General instructions Take osgo-ggy-ocltxhh and prescription medicines only as told by your health care provider. If you have to go to the hospital, notify your cancer specialist (oncologist). Keep all follow-up visits. This is important. Where to find more information [employer]: www.cancer.org Indian Society of Clinical Oncology: www.cancer.net National Cancer [place]: www.cancer.gov Contact a health care provider if: [...] provider. Document Revised: 02/10/2022 Document Reviewed: 02/10/2022 [email or web address] Patient Education 2022 [employer] Follow Up Care 04/27/2023 15:15:09 With:DIONY CHANDLER, Pino Reina, URL Address: [facility] [address] [place] [address]- [phone] When:Within 6 Month(s) Comments:PSA and ANNE-MARIE [facility] 05-17-2023 Note [id number]:127 [facility] 05-17-2023 Hospital Discharg e instructions Patient Education [...] for your post-operative appointment in 1-2 weeks [phone] or [phone] Follow Up Care 04/27/2023 15:25:07 With:Pino VALDEZ Address: [facility] [address], [place] [address]- Business (1) When: Unknown Comments:Keep scheduled appointment [facility] 02-07-2023 Hospital Discharg e instructions Patient [...] if anything looks unusual. Men with a nmvxph-rghm-mjkwzp risk for skin cancer may want to see a performance improvement specialist (deck officer) for an annual body check. Where to find more information National Cancer [place]: https://www.cancer.gov/about-ca ncer/screening Centers for Disease Control and Prevention: https://www.cdc.gov/cancer/dcpc /prevention/screening.htm Indian Cancer Society: https://www.cancer.org/latest-n ews/9-cixppy-zngeuoxdv-tests-fo r-men.html Contact a health care provider if: [...] 08/11/2017 Document Revised: 08/03/2019 Document Reviewed: 08/11/2017 [email or web address] Patient Education 2020 [employer] Follow Up Care 12/10/2022 10:33:39 With:DIONY CHANDLER, Pino Reina, URL Address: [facility] [address], [place] [address]- When: Unknown [facility] 01-25-2023 Note [id number]:127 [facility] 05-17-2022 Hospital Discharg e instructions Patient Education 05/17/2022 13:40:29 Epidermal Cyst, Xafs-qz-Ugyd Epidermal Cyst An epidermal cyst is a [...] yourself. Follow these instructions at home: Take xlom-lzf-edcqwti and prescription medicines only as told by [...] the cyst, or to remove it. Take rdyr-dtz-cqerndf and prescription medicines only as told by [...] 12/22/2005 Document Revised: 03/06/2020 Document Reviewed: 08/23/2019 [email or web address] Patient Education 2020 [email or web address] 04/19/2022 08:23:29 Testicular Self-Exam Testicular Self-Exam A [...] 02/20/2002 Document Revised: 03/06/2020 Document Reviewed: 10/10/2017 [email or web address] Patient Education 2020 [employer] Follow Up Care 03/17/2022 10:53:14 With:DIONY CHANDLER, Pino Reina, URL Address: [facility] [address], [place] [address]- When: Unknown [facility] Evaluation + Plan note Future Appointments Appointment Date:06/08/2022 08:45:00 AM Scheduled Provider: Location:[facility] Appointment Type:Urology CALL PAT FT Appointment Date:06/15/2022 09:00:00 AM Scheduled Provider: Location:[facility] Appointment Type:Urology FT [facility] Evaluation + Plan note Future Appointments Appointment Date:08/23/2022 12:30:00 PM Scheduled Provider:Pino VALDEZ MD Location:[facility] Appointment Type:URO Office Visit [facility] Evaluation + Plan note Future Appointments Appointment Date:06/06/2023 09:45:00 AM Scheduled Provider:Pino VALDEZ MD Location:[facility] Appointment Type:URO Office Visit Diagnostic Tests PendingProstate Histology ([facility]) 05/17/23 [facility] Evaluation + Plan note Future Appointments Appointment Date:12/09/2023 10:45:00 AM Scheduled Provider:Pino VALDEZ MD Location:[facility] Appointment Type:URO Office Visit Diagnostic Tests PendingPSA Total 06/06/23 [facility] Evaluation note No Assessments Infor mation Available [facility] Hospital course Narrative No data available for this section [facility] Hospital Discharge instructions No data available for this section [facility] Progress note No data available for this section [facility] Summary Purpose Family History No Family History Records FoundNo Family History Records FoundNo Family History Records FoundNo Family History Records Found Advance Directives No Advanced Directives Records FoundNo Advanced Directives Records FoundNo Advanced Directives Records FoundNo Advanced Directives Records Found Additional Source Comments (unrecognized sect ion and content) No Status Records FoundNo Status Records FoundNo Status Records FoundNo Status Records Found INFORMATION SOURCE (unrecogn ized section and content) DATE CREATED AUTHOR 04/01/2021 [facility] DATE CREATED AUTHOR AUTHOR'S ORGANIZ ATION 04/13/2023 [facility] DATE CREATED AUTHOR AUTHOR'S ORGANIZ ATION 01/03/2024 [facility] DATE CREATED AUTHOR AUTHOR'S ORGANIZ ATION 02/29/2024 [facility] EPIC Care Team (unrecognized sect ion and content) Health Insurance Assessor Relationship Specialty Start Date End Date Curt De Dios MD [address] [place] [place] [id number] PCP - General Family Medicine 11/11/23 Kathie Sánchez NP [address] [place] [id number] Nurse Practitioner Family Medicine 10/03/23 FOR RECORDS [...] BE BASED ON THE PRIMARY CLINICAL RECORDS. [facility]. provides no warranty or guarantee of the accuracy or completeness of information in this document.
== END 2024-04-09 12:34 | disposition home or self-care (01) ==
PROVIDERS: PCP Nurse Practitioner; Visit Provider Internal Medicine
DX: J18.9 Pneumonia, unspecified organism (principal); J98.11 Atelectasis
CPT/HCPCS: 71250

== ENCOUNTER 2024-06-21 14:21 | Outpatient (OUT) | payer MEDICARE, MEDICAID, SELFPAY ==
--- OUTSIDE RECORDS SUMMARY | 2024-06-21 14:47 | XMS_ITS | CCD ---
Author Organization [facility] Informat ion [facility] Care Team Providers Care Mission Systems Engineer Name Role Phone Bryan Quick Attending Provider [phone] KATHIE SÁNCHEZ Primary Care Physician [phone] AICHHOLZ, SPA ASSISTANT MANAGER KATHIE Primary Care Unavailable DR LEONOR MA Consulting Unavailable SAMSA ., ROBERTO Admitting Unavailable SAMSA ., ROBERTO Attending Unavailable SAMSA ., ROBERTO Consulting Unavailable AICHHOLZ, SPA ASSISTANT MANAGER KATHIE Admitting Unavailable AICHHOLZ, SPA ASSISTANT MANAGER KATHIE Attending Unavailable AICHHOLZ, SPA ASSISTANT MANAGER KATHIE Consulting Unavailable AICHHOLZ, SPA ASSISTANT MANAGER KATHIE Primary Care Unavailable AICHHOLZ, SPA ASSISTANT MANAGER KATHIE Admitting Unavailable AICHHOLZ, SPA ASSISTANT MANAGER KATHIE Primary Care Unavailable AICHHOLZ, SPA ASSISTANT MANAGER KATHIE Attending Unavailable AICHHOLZ, SPA ASSISTANT MANAGER KATHIE Consulting Unavailable AICHHOLZ, SPA ASSISTANT MANAGER KATHIE Primary Care Unavailable DR LEONOR MA Consulting Unavailable SAMSA ., ROBERTO Admitting Unavailable SAMSA ., ROBERTO Attending Unavailable SAMSA ., ROBERTO Consulting Unavailable DR LEONOR MA Consulting Unavailable SAMSA ., ROBERTO Admitting Unavailable SAMSA ., ROBERTO Attending Unavailable SAMSA ., ROBERTO Consulting Unavailable DR ELSA NOBLE Admitting Unavailable DR OK CISNEROS V Consulting Unavailable AICHHOLZ, SPA ASSISTANT MANAGER KATHIE Primary Care Unavailable DR ELSA NOBLE Attending Unavailable DR ELSA NOBLE Consulting Unavailable SAMSA ., ROBERTO Admitting Unavailable AICHHOLZ, SPA ASSISTANT MANAGER KATHIE Primary Care Unavailable SAMSA ., ROBERTO Attending Unavailable SAMSA ., ROBERTO Consulting Unavailable SAMSA ., ROBERTO Admitting Unavailable AICHHOLZ, SPA ASSISTANT MANAGER KATHIE Primary Care Unavailable DR LEONOR MA Consulting Unavailable SAMSA ., ROBERTO Attending Unavailable SAMSA ., ROBERTO Consulting Unavailable Aichholz DAG COATER, Kathie Unavailable Curt De Dios MD Primary Care Provider KATHIE SÁNCHEZ Attending Unavailable Pino VALDEZ Attending Unavailable Pino VALDEZ Attending Unavailable Pino VALDEZ Attending Unavailable Pino VALDEZ Attending Unavailable Pino VALDEZ Admitting Unavailable Pino VALDEZ Referring Unavailable Pino VALDEZ Attending Unavailable Peter Arceo DO Primary Care Provider AMANDEEP CRISOSTOMO Attending Unavailable PETER ARCEO Primary Care Unavailab le Allergies Allergy Classification Reported Allergen(s) Allergy Type Date of Onset Reaction(s) Facility (1 source) No Known Medication Allergies; Translations: [No Known Medication Allergies] Propensity to adverse reactions (disorder) [facility] Repository Medications Current Medications Medication Drug Class(es) Dates Sig (Normalized) Sig (Original) Albuterol (2 sources) beta2-Adrenergic Agonist ALBUTER OL SULFATE (PROVENTIL HFA INHALATION) Inhale as instructed. 0 Active take 2 puff(s) by in halation every four hours for wheezing albuterol HFA [...] aspirin 81 mg delayed release oral tablet (10 sources) Platelet Aggregation Inhibitor, Nonsteroidal Anti-inflammatory Drug [...] Start Date: 05/17/22 Status: Ordered Tessalon Perles (8 sources) Non-narcotic Antitussive Start: 08-05-2022 Malou Alvarez Oral, q12hr, PRN Cough Start Date: 08/05/22 Status: Ordered take 1 capsule by [facility] three times daily as needed for cough Benzonatate 200 mg capsule take 1 capsul e by mouth 3 times a day as needed for cough 0 Active Budesonide / formoterol (2 sources) Corticosteroid, beta2-Adrenergic Agonist take 2 puff(s) by mouth twice daily budesonide-formoterol (SYMBICORT) 160-4.5 mcg/actuation inhaler INHALE 2 PUFFS INTO THE LUNGS TWICE A DAY FOR 90 DAYS *RINSE MOUTH AFTER USE* 0 Active take 2 puff(s) by in halation in the morning budesonide-formoterol (Symbicort) 160-4. 5 MCG/ACT inhaler Inhale 2 puffs in the morning and 2 puffs before bedtime. Rinse mouth with water after use to reduce aftertaste and incidence of candidiasis. Do not swallow.. 0 Active budesonide-formoterol 160 mcg-4.5 mcg/inh Inh Aer w/adapter (8 sources) Start: 05-17-2022 take 2 puff(s) by inhalation twice daily budesonide-formoterol 160 mcg-4.5 mcg/inh Inh Aer w/adapter 2 puff(s), Inhalation, BID, Refill(s) 0 Start Date: 05/17/22 Status: Ordered Start: 05-17-2022 budesonide-for moterol 160 mcg-4.5 mcg/inh Inh Aer w/adapter Refill(s) 0 Start Date: 05/17/22 Status: Ordered cycloSPORINE 0.5 mg/ml ophthalmic suspension (1 source) Calcineurin Inhibitor Immunosuppressant Start: 05-14-2024 take 1 drop(s) into the eye(s) twice daily RESTASIS 0.05 % ophthalmic emulsion APPLY ONE DROP IN BOTH EYES 2 TIMES A DAY. 0 05/14/2024 Active 24 hr dilTIAZem hydrochloride 180 mg extended release oral capsule (10 sources) Calcium Channel Torres Start: 05-17-2022 take 1 capsule by mouth once daily Dilt-XR 180 mg/24 hours oral capsule, extended release 180 mg = 1 cap(s), Oral, Daily, Refills(s) 0 Start Date: 05/17/22 Status: Ordered Start: 05-17-2022 Dilt-XR 180 mg /24 hours oral capsule, extended release Refills(s) 0 Start Date: 05/17/22 Status: Ordered take 1 capsule by mo [facility] every twenty-four hours in the morning dilTIAZem XR (Dilacor XR) 180 MG 24 hr capsule Take 180 mg by mouth in the morning. 0 Active doxycycline hyclate 100 mg oral tablet (1 source) Tetracycline-class Drug Start: 05-16-2013 take 1 tablet by mouth twice daily doxycycline 100 mg tablet Take 1 tablet by mouth twice daily. 14 tablet 0 05/16/2013 Active fluticasone / salmeterol (1 source) Corticosteroid, beta2-Adrenergic Agonist take 1 puff(s) by inhalation twice daily fluticasone-salm eterol (ADVAIR DISKUS) 250-50 mcg/dose DsDv Inhale 1 Puff as instructed twice daily. 0 Active 12 hr guaiFENesin 600 mg extended release oral tablet (2 sources) guaiFENesin (MUCINEX) 600 mg 12 hr tablet Take 1,200 mg by mouth. 0 Active Ibuprofen (2 sources) Nonsteroidal Anti-inflammatory Drug IBUPROFEN (ADVIL ORAL) Take by mouth. 0 Active take 1 tablet by dominique every six hours as needed for pain ibuprofen 800 MG tablet Take 800 mg by mouth every 6 (six) hours if needed for mild pain 0 Active pantoprazole 40 mg delayed release oral tablet (8 sources) Proton Pump Inhibitor Start: 08-05-2022 take 1 dose by mouth once daily Start: 05-30-2019 End: 08-26-2024 take 1 tablet by mouth in the morning pantoprazole (ProtoNix) 40 MG EC tablet Indications: Gastro-esophageal reflux disease without esophagitis Take 1 tablet (40 mg) by mouth in the morning. 90 tablet 1 12/06/2023 03/05/2024 Active predniSONE (4 sources) Start: 01-02-2024 predniSONE 10 mg Tab Refills(s) 0 Start Date: 01/02/24 Status: Ordered Start: 05-16-2013 predniSONE 20 mg tablet Take 2 pills daily x 3 days 6 tablet 0 05/16/2013 Active take 1 tablet by dominique in the morning predniSONE (Deltasone) 10 MG tablet Take 10 mg by mouth in the morning. 0 Active Roflumilast (12 sources) Phosphodiesterase 4 Inhibitor Start: 01-02-2024 Roflumilast 500 mcg oral tablet Refills(s) 0 Start Date: 01/02/24 Status: Ordered Start: 05-17-2022 take 1 tablet by dominique th once daily Daliresp 500 mcg oral tablet 500 mcg = 1 tab(s), Oral, Daily, Refills(s) 0 Start Date: 05/17/22 Status: Ordered take 1 tablet by dominique th once daily roflumilast (DALIRESP) 500 mcg tab Take 500 mcg by mouth once daily. 0 Active sodium chloride 9 mg/ml inhalation solution (1 source) sodium chloride 0.9 % nebulizer solution Take 3 mL by nebulization if needed for wheezing 0 Active Sodium Phosphate, Dibasic / Sodium Phosphate, Monobasic (1 source) Start: 4 Fleet Enema 133 mL, Rectal, Once, 133 mL, Refill(s) 0, [facility]pharmacy #[id number], 175, cm, 01/02/24 12:45:00 EST, Height/Length Dosing, 63.1, kg, 01/02/24 12:45:00 EST, Weight Dosing Start Date: 04/17/24 Status: Ordered 60 actuat tiotropium 0.0025 mg/actuat inhalation spray (10 sources) Anticholinergic Start: 2 take 1 puff(s) by inhalation once daily Spiriva Respimat 60 ACT 2.5 mcg/inh inhalation aerosol one puff, Inhalation, Daily, Refills(s) 0 Start Date: 05/17/22 Status: Ordered Start: 05-17-2022 Spiriva Respim at 60 ACT 2.5 mcg/inh inhalation aerosol Refills(s) 0 Start Date: 05/17/22 Status: Ordered take 1 capsule by in halation once daily tiotropium (SPIRIVA WITH HANDIHALER) 18 mcg inhalation capsule Inhale 18 mcg as instructed once daily. 0 Active take 2 puff(s) by in halation in the morning tiotropium (Spiriva Respimat) 2.5 MCG/ACT inhaler Inhale 2 puffs in the morning. 0 Active Ventolin HFA 90 mcg/inh Aerosol-Adpt (8 sources) Start: 05-17-2022 take 1 puff(s) by inhalation every four hours Ventolin HFA 90 mcg/inh Aerosol-Adpt 1 puff(s), Inhalation, q4hr Shortness of breath or wheezing, Refill(s) 0 Start Date: 05/17/22 Status: Ordered Start: 05-17-2022 Ventolin HFA 9 0 mcg/inh Aerosol-Adpt Refill(s) 0 Start Date: 05/17/22 Status: Ordered Problems Active Problems Problem Classification Problem Date Documented Da te Episodic/Chronic Alcohol-related disorders (2 sources) Alcohol dependence, uncomplicated; Translations: [Alcoholism] Onset: 3 05-16-2013 Chronic Cancer of prostate (6 sources) Malignant neoplasm of prostate; Translations: [Malignant tumor of prostate] Onset: 3 Chronic Cardiac dysrhythmias (1 source) Atrial fibrillation; Translations: [Unspecified atrial fibrillation] Onset: 3 11-12-2023 Chronic Chronic obstructive pulmonary disease and bronchiectasis (2 sources) Emphysema, unspecified; Translations: [Chronic obstructive lung disease] Onset: 3 05-16-2013 Chronic Esophageal disorders (9 sources) Gastroesophageal reflux disease; Translations: [Gastro-esophageal reflux disease without esophagitis] Onset: 4 04-19-2022 Chronic Gout and other crystal arthropathies (8 sources) Gout 04-19-2022 Chronic Osteoarthritis (8 sources) Arthritis 04-19-2022 Chronic Other gastrointestinal disorders (8 sources) Scrotal mass 04-19-2022 Episodic Other nervous system disorders (8 sources) Neuropathy 04-19-2022 Chronic Other nervous system disorders (1 source) Carpal tunnel syndrome of right wrist; Translations: [Carpal tunnel syndrome, right upper limb] Onset: 3 10-27-2023 Chronic Other screening for suspected conditions (not mental disorders or infectious disease) (2 sources) Encounter for screening for malignant neoplasm of prostate; Translations: [Screening for malignant neoplasm done] Onset: 2 Episodic Other skin disorders (4 sources) Sebaceous cyst of skin; Translations: [Sebaceous cyst] Onset: 2 Episodic Pleurisy; pneumothorax; pulmonary collapse (8 sources) Focal atelectasis 04-19-2022 Episodic Respiratory failure; insufficiency; arrest (adult) (8 sources) Chronic hypoxemic respiratory failure 04-19-2022 Chronic Unclassified (8 sources) Patient encounter status 05-17-2022 Unclassified (8 sources) Sebaceous cyst of skin 05-17-2022 Unclassified (1 source) COUGH, UNSPECIFIED; Translations: [COUGH, UNSPECIFIED] Onset: 2 Unclassified (1 source) CONTACT W/AND (SUSP) EXPOS COVID-19; Translations: [CONTACT W/AND (SUSP) EXPOS COVID-19] Onset: 2 Past or Other Problems Problem Classification Problem Date Documented Date Episodic/Chronic Other aftercare (1 source) Other termination clerk (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 therapy; Translations: [OTH CERTIFIED PERSONAL CHEF CURRENT DRUG THERAPY] Onset: 08-13-2022 Episodic Other [...] [SHORTNESS OF BREATH] Onset: 05-03-2022 Episodic Other nervous system disorders (1 source) Impairment of balance; Translations: [Other abnormalities of gait and mobility] Onset: 05-16-2013 05-16-2013 Episodic Other nutritional; endocrine; and metabolic disorders (1 source) Abnormal weight loss; Translations: [ABNORMAL WEIGHT LOSS] Onset: 08-19-2022 Episodic Residual codes; unclassified (1 source) Tobacco user; Translations: [Tobacco use] Onset: 05-16-2013 05-16-2013 Episodic Screening and history of mental health and substance abuse codes (1 source) Personal history of nicotine dependence; Translations: [PERSONAL HISTORY OF NICOTINE DEPEND] Onset: 08-13-2022 Episodic Substance-related disorders (1 source) Marijuana user; Translations: [Cannabis use, unspecified, uncomplicated] Onset: 05-16-2013 05-16-2013 Episodic Results Test Name Value Interpretation Reference Range Facility URINALYSIS, REFLEX MICROSCOP ICon 07-05-2024 Bilirubin Ql (U) Negative Negative [facility] Clarity (Unsp spec) Clear [facility] Color (U) Yellow Yellow [facility] Glucose Test strip (U) [Mass/Vol] Negative Negative [facility] Hemoglobin Ql (U) Negative Negative [facility] Interpretation and review of laboratory results Normal [facility] Ketones Ql (U) Negative Negative [facility] Leukocyte esterase Test strip Ql (U) Negative Negative [facility] Nitrite Ql (U) Negative Negative [facility] pH (U) 5.5 [pH] NINF - 8.5 [facility] Protein (U) [Mass/Vol] Negative Negative [facility] Specific gravity (U) [Rel density] 1.009 1.005 - 1.030 [facility] Urobilinogen Ql (U) 0.2 EU/dL 0.2-1.0 EU/dL [facility] This test was developed and its performance characteristics determined by [facility]'s [facility] [place] ([facility]). It has not been cleared or approved by the FDA. -MI is regulated under CLIA as qualified to perform high-complexity testing. This test is used for clinical purposes. It should not be regarded as investigational or for research. [facility] Bilirubin Ql (U) Negative Normal Negative [facility] Comment on above: Order Comment: Speci men Type: URINE SPECIMEN Ordering Facility: [facility] Address: [address] [place] [address] Performed By: #### L [id number] #### [facility] CLIA [id number] [address] [place] [address] [place] Clarity (Unsp spec) Clear Normal Clear [facility] Comment on above: Order Comment: Speci men Type: URINE SPECIMEN Ordering Facility: [facility] Address: [address] [place] [address] Performed By: #### L [id number] #### [facility] CLIA [id number] [address] [place] [address] [place] Color (U) Yellow Normal Yellow [facility] Comment on above: Order Comment: Speci men Type: URINE SPECIMEN Ordering Facility: [facility] Address: [address] [id number] Performed By: #### L [id number] #### [facility] CLIA [id number] [address] [id number] [place] Glucose Test strip (U) [Mass/Vol] Negative Normal Negative [facility] Comment on above: Order Comment: Speci men Type: URINE SPECIMEN Ordering Facility: [facility] Address: [address] [id number] Performed By: #### L [id number] #### [facility] CLIA [id number] [address] [place] [address] [place] Hemoglobin Ql (U) Negative Normal Negative [facility] Comment on above: Order Comment: Speci men Type: URINE SPECIMEN Ordering Facility: [facility] Address: [address] [place] [address] Performed By: #### L [id number] #### [facility] CLIA [id number] [address] [place] [address] [place] Ketones Ql (U) Negative Normal Negative [facility] Comment on above: Order Comment: Speci men Type: URINE SPECIMEN Ordering Facility: [facility] Address: [address] [id number] Performed By: #### L [id number] #### [facility] CLIA [id number] [address] [place], [place] [id number] [place] Leukocyte esterase Test strip Ql (U) Negative Normal Negative [facility] Comment on above: Order Comment: Speci men Type: URINE SPECIMEN Ordering Facility: [facility] Address: [address] [place], [place] [id number] Performed By: #### L [id number] #### [facility] CLIA [id number] [address] [place], [place] [id number] [place] Nitrite Ql (U) Negative Normal Negative [facility] Comment on above: Order Comment: Speci men Type: URINE SPECIMEN Ordering Facility: [facility] Address: [address] [place] [address] Performed By: #### L [id number] #### [facility] CLIA [id number] [address] [place] [address] [place] pH (U) 5.5 [pH] Normal <8.5 [facility] Comment on above: Order Comment: Speci men Type: URINE SPECIMEN Ordering Facility: [facility] Address: [address] [place] [address] Performed By: #### L [id number] #### [facility] CLIA [id number] [address] [place] [address] [place] Protein (U) [Mass/Vol] Negative Normal Negative [facility] Comment on above: Order Comment: Speci men Type: URINE SPECIMEN Ordering Facility: [facility] Address: [address] [place] [address] Performed By: #### L [id number] #### [facility] CLIA [id number] [address] [place] [address] [place] Specific gravity (U) [Rel density] 1.009 Normal 1.005-1.030 [facility] Comment on above: Order Comment: Speci men Type: URINE SPECIMEN Ordering Facility: [facility] Address: [address] [place] [address] Performed By: #### L [id number] #### [facility] CLIA [id number] [address] [place] [address] [place] Urobilinogen Ql (U) 0.2 EU/dL Normal 0.2-1.0 EU/dL [facility] Comment on above: Order Comment: Speci men Type: URINE SPECIMEN Ordering Facility: [facility] Address: [address] [place] [address] Performed By: #### L [id number] #### [facility] CLIA [id number] [address] [id number] [place] Ambulatory Visit Summaryon 0 05-21-2024 Ambulatory Visit Summary MATEO STEARNS :1960 Visit Date:05/21/2024 Ambulatory Visit Instructions Your Diagnosis Prostate cancer Sebaceous cyst Your Care Team Attending Physician - Pino VALDEZ MD Primary Care Physician - KATHIE SÁNCHEZ CNP This Is Your Medications List Contact prescribing physician if questions or concerns albuterol (Ventolin HFA 90 mcg/inh Aerosol-Adpt) aspirin benzonatate (Tessalon Perles) budesonide-formotero l (budesonide-formoter ol 160 mcg-4.5 mcg/inh Inh Aer w/adapter) diltiazem (Dilt-XR 180 mg/24 hours oral capsule, extended release) pantoprazole (Protonix) predniSONE (predniSONE 10 mg Tab) roflumilast (Daliresp 500 mcg oral tablet) roflumilast (Roflumilast 500 mcg oral tablet) tiotropium (Spiriva Respimat 60 ACT 2.5 mcg/inh inhalation aerosol) Procedures Performed Transrectal biopsy of prostate using ultrasound (US) guidance (05/01/2024), Arthroplasty of the hip, Colonoscopy, Procedure on foot, Transrectal needle biopsy of prostate. Discharge Vitals Temperature (Temporal Artery) 37 ?C Heart Rate (Peripheral) 76 Respiratory Rate 16 Blood Pressure 139/84 Height 175 cm Height 69 in Weight 64 kg Weight 140.8 lb BMI 20.9 What to do next You Need to Schedule the Following Appointments Follow Up with DIONY CHANDLER, Pino Reina, URL When: Where: [facility] [address] , [place] [address] [phone] Someone Will Contact You Regarding These Appointments [facility] External Ambulatory Referral, Other (needs to be filled in), Other Referral, Referral to [facility] to discuss prostatectomy, 05/21/24 12:41:00 EDT, Prostate cancer Medications What How Much When Instructions Unchanged albuterol (Ventolin HFA 90 mcg/ inh Aerosol-Adpt) 1 Puffs Inhalation Every 4 hours as needed for Shortness of breath or wheezing Contact prescribing physician if questions or concerns Unchanged aspirin 81 Milligram By Mouth Every day Contact prescribing physician if questions or concerns Unchanged benzonatate (Tessalon Perles) By Mouth Every 12 hours as needed for Cough Contact prescribing physician if questions or concerns Unchanged budesonide-formotero l (budesonide-formoter ol 160 mcg-4.5 mcg/ inh Inh Aer w/ adapter) 2 Puffs Inhalation 2 times a day Contact prescribing physician if questions or concerns Unchanged diltiazem (Dilt-XR 180 mg/ 24 hours oral capsule, extended release) 1 Capsules By Mouth Every day Contact prescribing physician if questions or concerns Unchanged pantoprazole (Protonix) unknown dose By Mouth Every day Contact prescribing physician if questions or concerns Unchanged predniSONE (predniSONE 10 mg Tab) Contact prescribing physician if questions or concerns Unchanged roflumilast (Daliresp 500 mcg oral tablet) 1 Tablets By Mouth Every day Contact prescribing physician if questions or concerns Unchanged roflumilast (Roflumilast 500 mcg oral tablet) Contact prescribing physician if questions or concerns Unchanged tiotropium (Spiriva Respimat 60 ACT 2.5 mcg/ inh inhalation aerosol) one puff Inhalation Every day Contact prescribing physician if questions or concerns Allergies No Known Medication Allergies Problems Ongoing - Any problem that you are currently receiving treatment for. Arthritis Chronic GERD Chronic hypoxemic respiratory failure Gout Lobular atelectasis Neuropathy Prostate cancer Screening PSA (prostate specific antigen) Scrotal cyst Sebaceous cyst Patient Survey You may receive a survey via text or e-mail asking about your office visit. Please share your experience with us by completing your survey. We appreciate your feedback and thank you for choosing us for your care. Education Materials Prostate Cancer The prostate is a small [...] ? The need to urinate more often, espec (more content not included)... Normal [facility] Patient Educationon 05-21-20 Patient Education Oncology Prostate Cancer The prostate [...] likelihood that the cancer will spread. ? [place] 6 or lower: This indicates that the [...] Normal [facility] Urology Office/Clinic Noteon 05-21-2024 Urology Office/Clinic Note Chief Complaint prostate cancer HPI Staff Here to review path report from TRUS/bx done 05/01/24. Last seen in office 01/02/24. Dx: prostate cancer, sebaceous cyst. Dysuria: no Incomplete bladder emptying: no Hematuria: none Frequency: no Urgency: no Nocturia: 2x Stream: good steady no straining Leaking: no Post void dripping: yes Wearing pads/ Depends: no Urge incontinence: no Stress incontinence: no Incontinence without Sensory Awareness: no Abdominal pain: no Flank pain: no Sexual complaints: no History of Present Illness Tests reviewed: reviewed path report I have reviewed the previous health [...] See HPI. Physical Exam Vitals & Measurements T: 37 ?C(Temporal Artery) HR: 76(Peripheral) RR: 16 BP: 139/84 HT: 69 in HT: 175 cm WT: 64 kg WT: 140.8 lb BMI: 20.9 General Appearance: alert, no distress, well nourished, well developed male. Assessment/Plan 1. Prostate cancer (C61: Malignant neoplasm of prostate) ACTIVE SURVEILLANCE. PSA 03/15/22 - 0.11 04/08/23 - 4.46 11/30/23 - 4.22 ANNE-MARIE 04/01/24: 25g, benign No family history of prostate cancer. S/p TRUS/bx 05/17/23 - [place] score 6 (3+3) in 2 cores, each one is less than 10%. 2 HGPINs. S/p TRUS/bx 05/01/24 - [place] 6 (3+3) in 9/12 cores. 30% core involvement. No perineural invasion identified. EMERALD in left lateral apex. Had some pain/discomfort in perineum and with BMs but denies any PO complications. The pathology report was reviewed with the patient in detail today. The report confirms evidence of malignancy which is present in more cores. I discussed with the patient all the treatment options, including brachytherapy, EBRT, SBRT, ADT, combination of therapy options. I went over the pros and cons of each therapy. Explained possible SEs of radiation. Explained that he has high volume cancer and treatment is highly recommended. Discussed referral to radiation oncology or to [facility] to discuss prostatectomy. Pt is very interested in surgical removal. -Referral to [facility] for [facility] 2. Sebaceous cyst (L72.3: Sebaceous cyst) S/p excision of hemiscrotal 2 cm scrotal cyst 01/25/23. Path shows epidermal inclusion cyst, benign.[1] Follow-up With When Contact Information DIONY CHANDLER, Pino Reina, [facility] [address] , [facility] [place] [address] [phone] Additional Instructions: referral to [facility] to discuss prostatectomy Patient Education Prostate Cancer Vesta Mcguire, personally scribed for Dr. Valdez on 05/21/2024 12:43:00. . Documentation recorded by the evansibVesta edwards, accurately reflects the services(s) I performed and decisions made by me. Authenticated by Dr. Valdez on 05/21/2024 12:44:28. Problem List/Past Medical History Ongoing Arthritis Chronic GERD Chronic hypoxemic respiratory failure Gout Lobular atelectasis Neuropathy Prostate cancer Screening PSA (prostate specific antigen) Scrotal cyst Sebaceous cyst Historical No qualifying data Procedure/Surgical History Transrectal biopsy of prostate using ultrasound (US) guidance (05/01/2024), Arthroplasty of the hip, Colonoscopy, Procedure on [...] Tobacco Use:. Never Smokeless Tobacco Use:. Cigarettes, Household tobacco concerns: No. Yes, 05/21/2024 Family History Alcoholism: Father. Emphysema: Father. Immunizations Vaccine Date Status zoster vaccine, inactivated 09/17/2023 Recorded zoste (more content not included)... Normal [facility] Comment on above: Result Comment: Elec tronically Signed By: Pino VALDEZ MD\.br\Date and Time Signed: 05/21/24 12:44 EDT\.br\Electronically Co-Signed By: Vesta Cortes\.br\Date and Time Co-Signed: 05/21/24 12:43 EDT Coding Summary.on 05-17-2024 Coding Summary. GJVMMpck18ZOp0gVb+PG hlYWQ+XH1VOHCkC85elS IiiT5wD6FBEXjZIrreGX GJCFiMVpWberWaWG8bmF NjZXJu IC8+LR8cFWUxLiljrHUd e8U1bZN0O32nja9pIKyz aYW9XABjPvZosdefr4vt iEa8YDeyOeohJhMj FCNzjU00ESO1gB84Ru54 zQMgvIIpr6lloLp0JwPi HBJxZDM0iIaqLXlzm2Iq PWZpD53jmLDbq1Q1 IGNvbGxhcHNlOyBlbXB0 bN6oWYiumugcs5jmwvuv Ulv8qx26uKXlx7Y8tOH5 K2WtyvE7CSYggAZx XmelxFVAgN0kctzcd5ng vrrwKxYcOGLiXBx4LZm5 ZKXmeCcdJwDtWT16CTR9 USJhkeQqT5YyVLMg eJetSgK3n2G0Yn5IZ4LW DrmlH6XYAQXAEOkbbTM+ HO16uf36B9DzExfcPlf4 SKXqTBP6rXP2lP1s BRYrQQjan3T6oFY6V9Dl ujRdlo5hh1zaZXPgGLrw Y95rzWRph4O6GVPikTQ8 KEKkoTzrOoOpoG57 Oyc+MTOxzZsou2SpYdhy c5ggc1efnMd5HbmlYVHk jjLemKpcEXD3j2MqWi0p FIAuqZX3lEL3fS8b DqErMnT8NWnrX378EnUl hWEyXuqoQ08dV6AiyOR+ HVKkXmq8KBMgcKfxGA5u E2PjRKCeaybvkKFx zUqeBP4wLGQgerrcFITc hO7pYHYfK3g7VeGrBpE3 FLvqS9JeUNHtsbiqUf13 pR5oYsInMpD4DVok K4XfnlP2BHIfePCkXOmg AND6Z48ti4I5LPKcTYUb QPH7sXE6dO9xkArpmlwa bGVmdDsgdmVydGlj YEsfJHdoA683SXRpzPsj PkNvZGluZyBEYXRlOiAg MDYvMjAvMjAyNDwvdGQ+ BMYiGDY0lNkuMIWo rCNqKZxjMk5egPzthOow VN2yFHOrmsrxWRUdhT5x HVAnwEBwdAkyOD3yINZw wfqvw879HyMaOMV2 JBNhyJRfY2UjmW5bNqNs FRKgXHCwF6DdyMTsHUgi F648ZYyaPcC5TDCkypMf U8DwFFUlrVvkNiV9 u7Z3Lf3Uw1BtyxsyK2Wy qQXhKhNxVhptVKk2K3La PjwvdHI+TE27KLOiAP93 DKs4MUB9wCwkNQsg WPKuV2ZlfT7kUeQtWFFu ZGRkOyc+PHRhYmxlIHdp ZHRoPScxMDAlJyBzdHls UA1oAr8fQQIyLTYv aZzbrBHaHzOat6bjALGn DSldKX9vaNwxZ3IgvUC1 KADyq1h0Rp60K22vT1Ka dXA+YMMqsBA3jKV8 uA8kKxHkBxP4YXsaT780 FsGbgWMiTvavz0qpo7kd lIf0AmX4BVMqdvOndHlc CHH2a1CcUw70Z77u IHdpZHRoPSIxNSUiIHZh hWwmbr3myB8cOe6+PGNv vAT0fPY6zM6fUvLgPnM0 MRzuS006LvKkaWBu Kiilf8wtd9kycCo9YiCx CJXloeSheKfyDVD5z7Zs Nz27I5RgzQelw4XqFyl9 ks94qMNiv7R2ySM7 P1WdJVQxztprsWZedFoy DE2mZFMbxahxKWQpqW0e RVZlP0z3MuQfFtG1MXos B9XryuX5SWUysYCp MNLtdHDBcQ8cambci4el mmveMzFiIXCkEKi5YAu5 CHAnkSswJmLeAKF3OyV4 BJF3oWWtjB3uqIko cummhE9oOuq+LFI5eEOg aEWYRK3kGmpmmFV+PHRk OVF1lGfiGDxeKDImzQ2s DWPhB2r0UbCwTwJ7 RQdkL6OyihZ3LGRorEVk NKEmkJIHoA2ipjfwj5iq kagpNsUlCQFzRAo9ULq5 LWFsaWduOiBsZWZ0 CzG3DHW1lMPfgN0dzNcw cymxbW5iBdp+QmlydGgg OZH8HRx8F1NoCzy3CIBl pFonVW7ysWPdYIfr Je7exBbcfWqnAG7gTHWx lmglo175IzLgd3caVXYv pGFkIOkrBZL6T16an3D0 VSOnSAEyIAB8qSR3 xW7oiBuvhgeeoOZcjVki buGumSavEUfaMFgaE648 WIZjqVpuTkIhPAx4W2Wn Woi3WYSmzPwhPX0u qXCmSZdqBa2wrSsgdOkc PV0iEHZkhnimf468HwDk r1qaYZKaaAMtGUbsBLI3 U11by7M3WAIdCLLz MIR1bNF1lH3moHufgkic bGVmdDsgdmVydGljYWwt MVqvK859LUNppLbqKdEr bUf9X1NgNfx0CHOu eCtkEY1shHGjYEuwOw4k oKzvuKjqTK1oSQPsgmvi t991BfWbb8kpJJKcyJLl DJtcSNA9P41aq1O7 WGDsKDCjKUD8eYE9yJ8m bGlnbjogbGVmdDsgdmVy tPhkALdrPAbmJ341JIFh cDsnPlBhdGllbnQg ZGekBTn5K8RbCwwxsPY+ MT57URYrRV81yFCkpNYz r3wdoOp8ImQuPLCmIDS4 wUozMLemv5NtKNFc S35jcATwk9L6TMWbbOoo mEOcKsMlfAE7jZ4mEFvv tqcik2ainmlqIiyzi1mv su64mG61D85oPLyz ZHRoPSIzMCUiIHZhbGln ag5eiK7aPs8+PGNvbCB3 fHS4aZ7fFVYfJkB9KGyz T231MlFmjDSuTgvy u0eep6vntZn9ZnE0KZUt bqIopRqsCWO1m9CjHn88 D76tOWarLTToKWKqFWWd ZCWlbNlqbd7psC8o Ii8+WLPcpAW8iWE5kU7b OgRqMoT0KMgnW624IjXk qJGeDvpkW56wD1QmhOK+ AFIoKwo9CNRdpUhh TL6bqGBsAVsoJb2rBVS7 NtYtZaVwKFmjL5CbCGGs mhirkmirhLQ8IONxRESp sT40Yx1usXqmUFUl kVGMhV3cuvvwk5jfhljz CzLjMRXlIRa9XJb0AJGn uLftBvKsBNU9TcR6SEJ9 jKNtlH6voQxrbqwf rO2zZ0FzBJVkygfuIl48 uQ9yEsWwUkQ3VKzlMiw+ KA2TGHmoS7gRCJNDC9ST RVIgVzwvdGQ+PHRk KZT6vUgnAZnyCUZmkM4d NLFbI9v2QuApLuJ6ZRtf T9PvPRGjhniwTm46kH3i FwOeFoU3VPndH3Ym itP0LGXxlFDkRWdrNIF4 A42bm9I8KXDfWYAyJFS0 xOJ8zT0seVebtaxzpXQg dDsgdmVydGljYWwt QAxcL017FQVhkCaiQqF4 SoB2OtK8EOi5M5KvKub3 OXQuwNjiGP3zgHDzWQxv Ux4cwZtqqDxrXY5m WEGkhsdbCETavA9aSUDj fCHvkKipEE2cYHQspwkj a719TwJdJRV3KBLorKFl U1VsdC7dBsDpDRLf VLTqK1GqxZCnVKjiW093 ZMlhLsF6RDTybqIqE5Vg MEOzyPrkMfI5e1Y8Om78 NSBZZWFyczwvdGQ+ MLLdQLU6cJzbDPosQRRd nF6lKCAdZ6e6MmZuLtE9 ZXtlO7MiJTOebcmhTr64 cM5mZkMbTvQ5GSxx O7CdnjN3EQPjmHPjWPfk OFH7V61st3S4IXXaRRGr ZOR3dUR8vP0gkEvhodvk bGVmdDsgdmVydGlj YHunWNdqO973OTOlpPvs Yv5yiLY5E7WwQvx1NDEl iNmfSQ0qgFEqVKhxGh2i tPfnaJalUJ2dRUPs aesiSUSwwD6kHTBelIXj tYkfWH9vVJZnafaah545 AaAhQTC4PTZhkXZaE7Ez aP7vXtBeULNkOSYx O9IebEVjTNlwP762JQzt LaA0FAWoqsHeK2OrNABy fQgxVtW6x6D8Qk5OjCZb SMJlUY38SB69QH79 D3QwRuizeAKpkHZ+PHRh YmxlIHdpZHRoPScxMDAl VgBlpWzwWF5vQu0oOSRd LWNvbGxhcHNlOiBj i0tmYJQnFOlbDA7shOmw U1XdiWH3LSHws5j1Bd83 G40hZ7McjMD+PGNvbCB3 sTW3oI2sDcCsNgB5 DPuvB403NeHspXRhUfho q2fiz9jlxVd6VyNxCXYk cgQzzObnWHZ8h1WlKb06 U25oIXjsFAFgBFOi XRLzFNKcoYdtsy5pjG4u Ii8+XPXumGP9lZW8eT7o XuXpBjW6UBnwA658YcDk jDQiMcdtZ26fJ3Xb dXA+CGNfHjd8IHKehOla YI2xyNJmDFdlMg4dNQI7 LdBiPfLjEYomH8VyEAKy iwqdkmnaoVZ4IWPt AIXggP58Nv4csOrnCy0k IBSzJGB4HWJokEPzI9Yu sA1wOsFqFBPkWZVgL2Xw eLLyQQkgF080WAlq RfF8PSHfzwZfE1RzFKSo aYaxUeQ4r6L1Cf5HqLor sKBcIO2oLaQrGVj7L3Si Tzz9DMYjwPozWF7c nGCkXAxqAm4yrOnlgOrf QA8tRFCtccnhq728IxQy j7oeAVSkwJJjLRioTFQ2 K80pr8W3PHOrMNUf UDS4rQU1vC5lfPfibymz bGVmdDsgdmVydGljYWwt MMfyG325ZPOloZreYvIQ Ujk9B4NhBwa9OMUq eKuzZM4ynMKbQHhwOx2e xQrkuJqzAY2tJLHiennm j699MnSgl0ubLYPkzKKk WKesVZG5B89ag7Q7 RKIwJJJiCIS9zMK6jZ9z bGlnbjogbGVmdDsgdmVy sMewQBghCTvoQ094LRVg dRgkCf9ZQpd8T4Cw Mni8ZKTadWnaYJ1jjIOi MJfmSz4zqEsoiEieZJ7y EGGyzmelh635PuMui4pd IDEwcHQgVGltZXM7 X03oi0E1HVWwBXFpYNZ0 yVY0lS0bsIohxrimrXUr dDsgdmVydGljYWwtYWxp T614WNZzwMbaCyGa eWVyOjwvdGQ+XM41wm85 M3ZqQhwePvt2MNGiLEK2 fIA7xY0jEZPuGIeyg0X4 nUM2F8ZgfgAyuc3m x0wrUJTvMDleD (more content not included)... Normal [facility] Prostate Histology ([facility]) on 05-16-2024 Prostate Histology Diagnosis Info Invalid Interpretation Code [facility] Comment on above: Order Comment: left base x 3 bites Left lateral mid x 3 bites Left apex x 4 bites Result Comment: A:Pr ostate,Left Lateral Base:Needle Biopsy Interpretation - - Acinar adenocarcinoma of prostate; [place] score 6(3+3); Tumor measures 0.6 cm in length; 30% of the core involved by tumor; 1 of 1 core involved; Perineural invasion not identified. MicroScopic Description - B:Prostate,Left Base:Needle Biopsy Interpretation - - Benign prostatic tissue. MicroScopic Description - C:Prostate,Left Lateral Mid:Needle Biopsy Interpretation - - Acinar adenocarcinoma of prostate; [place] score 6(3+3); Tumor measures 0.1 cm in length; 8% of the core involved by tumor; 1 of 1 core involved; Perineural invasion not identified. MicroScopic Description - D:Prostate,Left Mid:Needle Biopsy Interpretation - - Acinar adenocarcinoma of prostate; [place] score 6(3+3); Tumor measures 0.1 cm in length; 6% of the core involved by tumor; 1 of 1 core involved; Perineural invasion not identified. MicroScopic Description - E:Prostate,Left Lateral [place]:Needle Biopsy Interpretation - - Atypical glands suspicious but not diagnostic for adenocarcinoma. MicroScopic Description - F:Prostate,Left [place]:Needle Biopsy Interpretation - - Benign prostatic tissue. MicroScopic Description - G:Prostate,Right Base:Needle Biopsy Interpretation - - Benign prostatic tissue. MicroScopic Description - H:Prostate,Right Lateral Base:Needle Biopsy Interpretation - - Benign prostatic tissue. MicroScopic Description - I:Prostate,Right Mid:Needle Biopsy Interpretation - - Benign prostatic tissue. MicroScopic Description - J:Prostate,Right Lateral Mid:Needle Biopsy Interpretation - - Benign prostatic tissue. MicroScopic Description - K:Prostate,Right [place]:Needle Biopsy Interpretation - - Benign prostatic tissue. MicroScopic Description - L:Prostate,Right Lateral [place]:Needle Biopsy Interpretation - - Benign prostatic tissue. MicroScopic Description - M:Prostate,Left Base:Needle Biopsy Interpretation - - Acinar adenocarcinoma of prostate; [place] score 6(3+3); Tumor measures 0.2 cm in length; 9% of the core involved by tumor; 1 of 1 core involved; Perineural invasion not identified. MicroScopic Description - N:Prostate,Left Base:Needle Biopsy Interpretation - - Acinar adenocarcinoma of prostate; [place] score 6(3+3); Tumor measures 0.4 cm in length; 16% of the core involved by tumor; 2 of 3 cores involved; Perineural invasion not identified. MicroScopic Description - O:Prostate,Left Lateral Mid:Needle Biopsy Interpretation - - Acinar adenocarcinoma of prostate; [place] score 6(3+3); Tumor measures 0.1 cm in length; 8% of the core involved by tumor; 1 of 1 core involved; Perineural invasion not identified. MicroScopic Description - P:Prostate,Left Lateral Mid:Needle Biopsy Interpretation - - Acinar adenocarcinoma of prostate; [place] score 6(3+3); Tumor measures 0.1 cm in length; 25% of the core involved by tumor; 1 of 2 cores involved; Perineural invasion not identified. MicroScopic Description - Q:Prostate,Left [place]:Needle Biopsy Interpretation - - Acinar adenocarcinoma of prostate; [place] score 6(3+3); Tumor measures 0.1 cm in length; 3% of the core involved by tumor; 1 of 2 cores involved; MicroScopic Description - R:Prostate,Left [place]:Needle Biopsy Interpretation - - Benign prostatic tissue. MicroScopic Description - Gross Description Site ID:A color rivera-white fixative Formalin cores 1 units cm Site ID:B color rivera-white fixative Formalin cores 1 units cm Site ID:C color rivera-white fixative Formalin cores 2 units cm Site ID:D color rivera-white fixative Formalin cores 1 units cm Site ID:E color rivera-white fixative Formalin cores 1 units cm May Not Survive Processing Site ID:F color rivera-white fixative Formalin cores 1 units cm Site ID:G color rivera-white fixative Formalin cores 1 units cm Site ID:H color rivera-white fixative Formalin cores 1 units cm fragmented Site ID:I color rivera-white fixative Formalin cores 1 units cm coily Site ID:J color rivera-white fixative Formalin cores 1 units cm coily Site ID:K color rivera-white fixative Formalin cores 1 units cm wispy Site ID:L color rivera-white fixative Formalin cores 1 units cm Site ID:M color rivera-white fixative Formalin cores 1 units cm Site ID:N color rivera-white fixative Formalin cores 2 units cm Site ID:O color rivera-white fixative Formalin cores 1 units cm Site ID:P color rivera-white fixative Formalin cores 1 units cm Site ID:Q color rivera-white fixative Formalin cores 2 units cm Site ID:R color rivera-white fixative Formalin cores 2 units cm Immunohistochemical staining with PIN4 performed on parts A, C, D, L, M, N, O, P, Q and R which supports the diagnosis. Electronically signed by : on: 05/16/2024 11:46:32 Performed By: #### 1 [id number] #### [facility] [address] [place] [address] Consent for Procedure/Surger yon 05-01-2024 Consent for Procedure/Surgery [id number] #1.00TIFF Normal [facility] Consent for Treatmenton -0 Consent for Treatment [id number] #1.00TIFF Normal [facility] IntraOperative Documentson 0 05-01-2024 IntraOperative Documents [id number] #1.00TIFF Normal [facility] Main OR Intraoperative Recor don 05-01-2024 Main OR Intraoperative Record IntraOp Document Type FTURO Summary Primary Physician: Pino VALDEZ MD Finalized Date/Time: 05/01/24 12:17:31 Pt. Name: MATEO STEARNS Schuyler Breen/Sex: 1960 Male Med Rec #: [id number] Physician: iPno VALDEZ MD Financial #: [id number] Pt. Type: O Room/Bed: / Admit/Disch: 05/01/24 10:18:15 - Institution: Case Times FTURO Entry 1 Patient Times In Room 05/01/24 11:31:00 Out Room 05/01/24 12:03:00 Procedure Times Start 05/01/24 11:35:00 Stop 05/01/24 11:56:00 Anesthesia Times Last Modified By: Gila MCLEAN, aMra Whitlock 05/01/24 12:03:31 Case Attendance FTURO Entry 1 Entry 2 Entry 3 Case Attendee DIONY CHANDLER, Pino Wong RN, Mara Chacon CST, Diana A Vanesa P Role Performed Surgeon - Primary Volleyball Commentator - Primary Scrub - Primary Time In 05/01/24 11:31:00 05/01/24 11:31:00 05/01/24 11:31:00 Time Out 05/01/24 12:03:00 05/01/24 12:03:00 05/01/24 12:03:00 Procedure PROSTATE TRANSRECTAL PROSTATE TRANSRECTAL PROSTATE TRANSRECTAL ULTRASOUND WITH BIO(.) ULTRASOUND WITH BIO(.) ULTRASOUND WITH BIO(.) Comments Last Modified By: Gila MCLEAN, Mara Wong RN, Mara Wong RN, Mara Whitlock 05/01/24 Vanesa P 05/01/24 Vanesa P 05/01/24 12:03:31 12:03:31 12:03:31 Surgical Procedures FTURO Entry 1 Procedure Description Procedure PROSTATE TRANSRECTAL Modifiers . ULTRASOUND WITH BIOPSY Surgeon Description PROSTATE TRANSRECTAL ULTRASOUND WITH BIOPSY Primary Procedure Yes Primary Surgeon Pino VALDEZ MD Start 05/01/24 11:35:00 Stop 05/01/24 11:56:00 Anesthesia Type Local Surgical Service Urology Wound Class 2 - Clean-Contaminated Last Modified By: Gila MCLEAN, Mara Whitlock 05/01/24 11:56:48 General Case Data FTURO Pre-Care Text: Classifies surgical wound, implements aseptic technique, initiates traffic control Entry 1 Case Information OR URO 1 FT Case Level None Wound Class 2 - Clean-Contaminated Specialty Urology Preop Diagnosis PROSTATE CANCER Postop Same As Preop Yes Postop Diagnosis PROSTATE CANCER Outcomes Met? Yes Last Modified By: Gila MCLEAN, Mara Whitlock 05/01/24 11:40:52 Post-Care Text: The patient is free from [...] Laterality Verified n/a Verified Procedure Verified Yes Correct Patient Yes Position Verified Availability Equipment, Medication Time Out Pino VALDEZ MD, Verified (If Participants Mara Wong RN Applicable) Oswaldo Corey CST Diana Krysta Time Out Complete 05/01/24 11:35:00 Allergies Reviewed? Yes Allergies Reviewed Self/Patient With Body Position Lateral, right side up Prep Area RECTAL AREA Prep Agents Betadine Solution Skin. Condition Unable to Visualize Description CLOTHED Vitals - EU Blood Pressure Pulse Respirations SPO2 IandO - EU Outcomes Met? Yes Last Modified By: Mara Wong RN 05/01/24 11:41:59 Post-Care Text: The patient is free from signs and symptoms of injury caused by extraneous objects General Comments: SPECIMEN: 1) LEFT BASE 2) LEFT APEX ADDITIONAL SPECIMEN SENT -Chencho WONG RN Sign Out FTURO Entry 1 Before Patient Leaves OR Nurse verbally Yes Nurse verbally Yes confirms with the confirms with the team the name of team that the procedure(s) instrument, sponge, recorded and needle counts are correct (or N/A) Nurse verbally n/a Nurse verbally Yes confirms with the confirms with the team how the team whether there specimen is labeled are any equipment (including patient problems to be name), if applicable addressed Sign Out Complete 05/01/24 11:56:00 Last Modified By: Mara Wong RN 05/01/24 11:56:48 Case Comments Finalized By: Mara Wong RN Document Signatures Signed By: Mara Wong RN 05/01/24 12:17 Normal [facility] Main OR Preoperative Recordo n 05-01-2024 Main OR Preoperative Record Holding Area Document Type FTURO Summary Primary Physician: Pino VALDEZ MD Finalized Date/Time: 05/01/24 11:27:32 Pt. Name: MATEO STEARNS/Sex: 1960 Male Med Rec #: [id number] Physician: Pino VALDEZ MD Financial #: [id number] Pt. Type: O Room/Bed: / Admit/Disch: 05/01/24 10:18:15 - Institution: Case Times Holding FTURO Pre-Care Text: Verifies consent for planned procedure, identifies individual values and wishes concerning care, includes family members in perioperative teaching Secures patient's records' belongings, and valuables, maintains patient's dignity and privacy, and maintains patient confidentiality Entry 1 In Holding 05/01/24 11:21:00 Outcomes Met? Yes Last Modified By: MICA Kimball RN, Ruthann 05/01/24 11:21:12 Post-Care Text: The patient participates in decisions affecting his or her perioperative plan of care The patient's right to privacy is maintained Surgery Checklist FTURO Entry 1 Patient Birthday, ID Band Procedure History and Physical, Identification: Check, Patient Verification: Surgical Consent, With Participation Patient NPO after Midnight: n/a Personal Items: Glasses Personal Items clothes Limitations: a-fib Comment: Complaints of Pain: No Skin Integrity Unable to Visualize Vitals - EU Blood Pressure 150/69 Pulse 93 bpm Respirations 16 br/min SPO2 90 % Additional None RN Reviewed Yes Specimens Collected Last Modified By: MICA Kimball RN, Ruthann 05/01/24 11:22:47 Finalized By: MICA Kimball RN, Ruthann Document Signatures Signed By: MICA Kimball RN, Ruthann 05/01/24 11:22 MICA Kimball RN, Ruthann 05/01/24 11:25 MICA Kimball RN, Ruthann 05/01/24 11:27 Normal [facility] Operative Reporton Operative Report Patient: MATEO STEARNS Age: 63 years Sex: Male : 1960 Associated Diagnoses: None Author: Pino VALDEZ MD Procedure Operative Information Details: Date/ Time: 05/01/2024 12:01:00. Pre-Op Dx: Hx of Prostate CA - Z85.46. Post-Op Dx: Same. Anesthesia Type: Local, Periprostatic [...] in the AP and Sagittal views. Volume: 18 CC. Specimens Removed: 3 biopsies were taken from the left base. 3 biopsies were taken from the left lateral base. 2 biopsies from the left mid and 4 biopsies from the left apex. 2 biopsies were taken from each of the base mid and apex on the right side. Devices Implanted: None. Postoperative Information Discharge: The [...] longitudinal and transverse plains, The gland measures (41 MM Length, 39 MM Width, 21 MM Depth, with a calculated volume of 18 CC), The prostatic capsule and seminal vesicles appear to be within normal limits, The peripheral zone demonstrates No abnormalities, Rest of the prostate demonstrates No abnormalities, Ultrasound guidance was then utilized to obtain 12 biopsies, These were sent to pathology for evaluation, 18 total biopsies were taken. Normal [facility] Comment on above: Result Comment: Elec tronically Signed By: DIONY CHANDLER, Pino [email or web address].[email or web address]\Date and Time Signed: 05/01/24 12:04 EDT Outpatient Surgery Discharge Instructionon 05-01-2024 Outpatient Surgery Discharge Instruction [id number] #1.00TIFF Normal [facility] Patient Educationon 05-01-20 24 Patient Education Custom Transrectal Ultrasound of the [...] for your post-operative appointment in 1-2 weeks [phone] or [phone] Normal [facility] Prostate Histology ([facility]) on 05-01-2024 PH Method of Extraction Needle Biopsy Normal [facility] Comment on above: Order Comment: left base x 3 bites Left lateral mid x 3 bites Left apex x 4 bites Performed By: #### 1 [id number] #### [facility] [address] [place] [address] PH Number of Jars 3 Invalid Interpretation Code [facility] Comment on above: Order Comment: left base x 3 bites Left lateral mid x 3 bites Left apex x 4 bites Performed By: #### 1 [id number] #### [facility] [address] [place] [address] PH Specimen 1 L Apx Prostate Normal [facility] Comment on above: Order Comment: left base x 3 bites Left lateral mid x 3 bites Left apex x 4 bites Performed By: #### 1 [id number] #### [facility] [address] [place] [address] PH Specimen 10 R Lat Bse Prost Normal [facility] Comment on above: Order Comment: left base x 3 bites Left lateral mid x 3 bites Left apex x 4 bites Performed By: #### 1 [id number] #### [facility] [address] [place] [address] PH Specimen 11 R Lat Mid Prost Normal [facility] Comment on above: Order Comment: left base x 3 bites Left lateral mid x 3 bites Left apex x 4 bites Performed By: #### 1 [id number] #### [facility] [address] [place] [address] PH Specimen 12 R Lat Apx Prost Normal [facility] Comment on above: Order Comment: left base x 3 bites Left lateral mid x 3 bites Left apex x 4 bites Performed By: #### 1 [id number] #### [facility] [address] [place] [address] PH Specimen 2 L Base Prostate Normal [facility] Comment on above: Order Comment: left base x 3 bites Left lateral mid x 3 bites Left apex x 4 bites Performed By: #### 1 [id number] #### [facility] [address] [place] [address] PH Specimen 3 L Lat Apx Prost Normal [facility] Comment on above: Order Comment: left base x 3 bites Left lateral mid x 3 bites Left apex x 4 bites Performed By: #### 1 [id number] #### [facility] [address] [place] [address] PH Specimen 4 L Lat Bse Prost Normal [facility] Comment on above: Order Comment: left base x 3 bites Left lateral mid x 3 bites Left apex x 4 bites Performed By: #### 1 [id number] #### [facility] [address] [place] [address] PH Specimen 5 L Lat Mid Prost Normal [facility] Comment on above: Order Comment: left base x 3 bites Left lateral mid x 3 bites Left apex x 4 bites Performed By: #### 1 [id number] #### [facility] [address] [place] [address] PH Specimen 6 L Mid Prostate Normal [facility] Comment on above: Order Comment: left base x 3 bites Left lateral mid x 3 bites Left apex x 4 bites Performed By: #### 1 [id number] #### [facility] [address] [place] [address] PH Specimen 7 R Apx Prostate Normal [facility] Comment on above: Order Comment: left base x 3 bites Left lateral mid x 3 bites Left apex x 4 bites Performed By: #### 1 [id number] #### [facility] [address] [place] [address] PH Specimen 8 R Base Prostate Normal [facility] Comment on above: Order Comment: left base x 3 bites Left lateral mid x 3 bites Left apex x 4 bites Performed By: #### 1 [id number] #### [facility] [address] [place] [address] PH Specimen 9 R Mid Prostate Normal [facility] Comment on above: Order Comment: left base x 3 bites Left lateral mid x 3 bites Left apex x 4 bites Performed By: #### 1 [id number] #### [facility] [address] [place] [address] PH Type of Service Technical Only Normal [facility] Comment on above: Order Comment: left base x 3 bites Left lateral mid x 3 bites Left apex x 4 bites Performed By: #### 1 [id number] #### [facility] [address] [place] [address] Patient Educationon 01-02-20 24 Patient Education Oncology Transrectal Ultrasound-Guided Prostate Biopsy, [...] near your rectum, especially while sitting. ? [place]-colored urine due to small amounts of blood in your urine. ? A burning feeling while urinating. ? Blood in your stool (feces) or bleeding from your rectum. ? Blood in your semen. Follow these instructions at home: Medicines ? Take [id number] and prescription medicines only as told by [...] provider. Document Revised: 05/10/2022 Document Reviewed: 05/10/2022 Service Route Patient Education ? 2022 [employer]. Transrectal Ultrasound-Guided Prostate Biopsy A transrectal ultrasound-guided [...] including vitamins, herbs, eye drops, creams, and ztzb-pnc-wicrxlo medicines. ? Any problems you or family [...] as aspirin (more content not included)... Normal [facility] Urology Office/Clinic Noteon 01-02-2024 Urology [...] of prostate cancer. S/p TRUS/bx 05/17/23 - [place] score 6 (3+3) in 2 cores each [...] When Contact Information DIONY CHANDLER, Pino Reina, [facility] [address], [place] [address]- [phone] Additional Instructions: sched repeat TRUS/bx Patient Education Transrectal Ultrasound-Guided Prostate Biopsy, Care After Transrectal Ultrasound-Guided Prostate Biopsy I, Vesta Cortes, personally scribed for Dr. Valdez on 01/02/2024 [...] Father. I (more content not included)... Normal [facility] Comment on above: Result Comment: Elec tronically Signed By: Pino VALDEZ MD\.br\Date and Time Signed: 01/02/24 13:53 EST\.br\Electronically Co-Signed By: Vesta Cortes\.br\Date and Time Co-Signed: 01/02/24 13:52 EST Lab Reportson 12-01-2023 Lab Reports [id number] Normal [facility] Ambulatory Visit Summaryon 0 06-06-2023 Ambulatory Visit Summary JINNYALIARAJANIHEMA Payan :1960 Visit Date:06/06/2023 Ambulatory Visit Instructions Your Diagnosis Prostate cancer Sebaceous cyst Tests Performed Urnls Dip Stick Auto w/o Microscopy POC 34621 Your Care Team Attending Physician - Pino [...] Follow-Up Appointments Tuesday 10:45 AM EST With: Pino VALDEZ MD Where: [facility] [place] [facility] Patient Educationon 06-06-20 23 Patient [...] likelihood that the cancer will spread. ? [place] 6 or lower: This indicates that the cancer cells look similar to normal prostate cells (well differentiated). ? [place] 7: This indicates that the cancer cells look somewhat similar to normal prostate cells (moderately differentiated). ? [place] 8, 9, or 10: This indicates that [...] 04/08/23 - 4.46 S/p TRUS/bx 05/17/23 - [place] score 6 (3+3) in 2 cores each [...] Contact Information DIONY CHANDLER, Pino Reina, URL In 6 months [facility] [address], [place] [address] [phone] Additional Instructions: PSA and ANNE-MARIE Patient Education [...] Cortes\.br\Date and Time Co-Signed: 06/06/23 11:47 EDT PSA, FREE AND TOTAL RATIOon 04-13-2023 % Free PSA 12.1 % Normal [facility] Comment on above: Result Comment: The table [...] men. Performed By: #### H ISTGAL #### [facility] [address] [place] [address] Dr. James Crowley Prostate specific Ag [Mass/Vol] 3.4 ng/mL Normal 0.0-4.0 [facility] Comment on above: Result Comment: Rosa Elena DESHPANDE methodology. . According to the [place] [employer], Serum PSA should decrease and [...] disease. Performed By: #### H ISTGAL #### [facility] [address] [place] [address] Dr. James Crowley PSA, Free 0.41 ng/mL Normal N/A [facility] Comment on above: Result Comment: Rosa Elena DESHPANDE methodology. Performed By: #### H ISTGAL #### [facility] [address] [place] [address] Dr. James Crowley CBC AUTO DIFFon 04-08-2023 BASO # 0.1 103/ul Normal 0.0-0.1 [facility] Comment on above: Performed By: #### C BC #### [facility] [address] [place] [address] Dr. James Crowley Basophils/100 WBC (Bld) 0.5 % Normal 0.2-2.0 [facility] Comment on above: Performed By: #### C BC #### [facility] [address] [place] [address] Dr. James Crowley EO # 0.1 103/ul Normal 0.0-0.7 [facility] Comment on above: Performed By: #### C BC #### [facility] [address] [place] [address] Dr. James Crowley Eosinophils/100 WBC (Bld) 1.3 % Normal 0.9-7.0 [facility] Comment on above: Performed By: #### C BC #### [facility] [address] [place] [address] Dr. James Crowley Erythrocyte distribution width (RBC) [Ratio] 13.5 % Normal 11.0-15.0 [facility] Comment on above: Performed By: #### C BC #### [facility] [address] [place] [address] Dr. James Crowley Hematocrit (Bld) [Volume fraction] 48.4 % Normal 42.0-54.0 [facility] Comment on above: Performed By: #### C BC #### [facility] [address] [place] [address] Dr. James Crowley Hemoglobin (Bld) [Mass/Vol] 15.6 g/dL Normal 14.0-18.0 [facility] Comment on above: Performed By: #### C BC #### [facility] [address] [place] [address] Dr. James Crowley IG # 0.08 10e3/ul Critically high 0.00-0.03 [facility] Comment on above: Performed By: #### C BC #### [facility] [address] [place] [address] Dr. James Crowley IG % 0.8 % Critically high 0.0-0.5 [facility] Comment on above: Performed By: #### C BC #### [facility] [address] [place] [address] Dr. James Crowley LYMPH # 3.1 103/ul Normal 1.2-3.8 [facility] Comment on above: Performed By: #### C BC #### [facility] [address] [place] [address] Dr. James Crowley Lymphocytes/100 WBC (Bld) 29.8 % Normal 20.5-60.0 [facility] Comment on above: Performed By: #### C BC #### [facility] [address] [place] [address] Dr. James Crowley MANUAL DIFF REQ NO Normal [facility] Comment on above: Performed By: #### C BC #### [facility] [address] [place] [address] Dr. James Crowley MCH (RBC) [Entitic mass] 29.3 pg Normal 25.9-34.0 [facility] Comment on above: Performed By: #### C BC #### [facility] [address] [place] [address] Dr. James Crowley MCHC (RBC) [Mass/Vol] 32.2 g/dL Normal 29.9-35.2 [facility] Comment on above: Performed By: #### C BC #### [facility] [address] [place] [address] Dr. James Crowley MCV (RBC) [Entitic vol] 90.8 fL Normal 80.0-94.0 [facility] Comment on above: Performed By: #### C BC #### [facility] [address] [place] [address] Dr. James Crowley MONO # 0.6 103/ul Normal 0.3-0.8 [facility] Comment on above: Performed By: #### C BC #### [facility] [address] [place] [address] Dr. James Crowley Monocytes/100 WBC (Bld) 5.9 % Normal 1.7-12.0 [facility] Comment on above: Performed By: #### C BC #### [facility] [address] [place] [address] Dr. James Crowley NEUT # 6.4 103/ul Normal 1.4-6.5 [facility] Comment on above: Performed By: #### C BC #### [facility] [address] [place] [address] Dr. James Crowley Neutrophils/100 WBC (Bld) 61.7 % Normal 43.0-75.0 [facility] Comment on above: Performed By: #### C BC #### [facility] [address] [place] [address] Dr. James rCowley Platelet mean volume (Bld) [Entitic vol] 9.1 fL Critically low 9.5-13.5 [facility] Comment on above: Performed By: #### C BC #### [facility] [address] [place], [place] [address] Dr. James Crowley PLT 320 103/ul Normal 150-450 [facility] Comment on above: Performed By: #### C BC #### [facility] [address] [address] [address] James Crowley RBC 5.33 106/ul Normal 4.70-6.10 [facility] Comment on above: Performed By: #### C BC #### [facility] [id number] James Crowley WBC 10.4 103/ul Normal 4.0-11.0 [facility] Comment on above: Performed By: #### C BC #### [facility] [address] [address] [address] CHEST W CONon [...] by: LEONOR MA Date: 2023-04-08 10:41 Normal [facility] LIPID PROFILEon 04-08-2023 CHOL-HDL RATIO NORM SEE BELOW Normal [facility] Comment on above: Result Comment: 3.3 - 4.4 LOW RISK 4.4 - 7.1 AVERAGE RISK 7.1 - 11.0 MODERATE RISK >11.0 HIGH RISK Performed By: #### U NEO, LIPID #### [facility] [address], [place] [address] Dr. James Crowley Cholesterol [Mass/Vol] 204 mg/dL Critically high <=200 [facility] Comment on above: Performed By: #### U NEO, LIPID #### [facility] [address] [address] [address] James Crowley Cholesterol in HDL [Mass/Vol] 55 mg/dL Normal 40-60 [facility] Comment on above: Performed By: #### U NEO, LIPID #### [facility] [address] [address] [address] James Crowley Cholesterol in LDL [Mass/Vol] 115.2 mg/dL Normal [facility] Comment on above: Performed By: #### U NEO, LIPID #### [facility] [address], [place] [address] Dr. James Crowley Cholesterol.total/C holesterol in HDL [Mass ratio] 3.7 {ratio} Normal [facility] Comment on above: Performed By: #### U NEO, LIPID #### [facility] [address] [place], [place] [address] Dr. James Crowley HDL NORMAL > or = 60 mg/dl - LOW CARDIOVASCULAR RISK <40 mg/dl - HIGH CARDIOVASCULAR RISK Normal [facility] Comment on above: Performed By: #### U NEO, LIPID #### [facility] [id number] James Crowley LDL CALC NORMAL SEE BELOW Normal [facility] Comment on above: Result Comment: <100 mg/dl OPTIMAL 100 - 129 mg/dl NEAR OR ABOVE OPTIMAL 130 - 159 mg/dl BORDERLINE HIGH 160 - 189 mg/dl HIGH >190 mg/dl VERY HIGH Performed By: #### U NEO, LIPID #### [facility] [address] [address] [address] James Crowley Triglyceride [Mass/Vol] 169 mg/dL Critically high <=150 [facility] Comment on above: Performed By: #### U NEO, LIPID #### [facility] [address] [address] [address] James Crowley VLDL CALC 33.8 mg/dL Normal [facility] Comment on above: Performed By: #### U NEO, LIPID #### [facility] [address] [address] [address] James Crowley PROF 14(COMP METB)on 023 Albumin [Mass/Vol] 3.7 g/dL Normal 3.4-5.0 [facility] Comment on above: Performed By: #### U NEO, LIPID #### [facility] [address] [place] [address] Dr. James Crowley Albumin/Globulin [Mass ratio] 0.9 {ratio} Normal [facility] Comment on above: Performed By: #### U NEO, LIPID #### [facility] [address] [place] [address] Dr. James Crowley ALP [Catalytic activity/Vol] 86 U/L Normal 46-116 [facility] Comment on above: Performed By: #### U NEO, LIPID #### [facility] [address] [address] [address] James Crowley ALT [Catalytic activity/Vol] 33 U/L Normal 16-63 [facility] Comment on above: Performed By: #### U NEO, LIPID #### [facility] [address] [address] [address] James Crowley Anion gap [Moles/Vol] 14.8 mmol/L Normal [facility] Comment on above: Performed By: #### U NEO, LIPID #### [facility] [address] [address] [address] James Crowley AST [Catalytic activity/Vol] 16 U/L Normal 15-37 [facility] Comment on above: Performed By: #### U NEO, LIPID #### [facility] [address] [address] [address] James Crowley Bilirubin [Mass/Vol] 0.7 mg/dL Normal 0.2-1.0 [facility] Comment on above: Performed By: #### U NEO, LIPID #### [facility] [address] [address] [address] James Crowley Calcium [Mass/Vol] 9.1 mg/dL Normal 8.5-10.1 [facility] Comment on above: Performed By: #### U NEO, LIPID #### [facility] [address] [address] [address] James Crowley Chloride [Moles/Vol] 107 mmol/L Normal 98-107 [facility] Comment on above: Performed By: #### U NEO, LIPID #### [facility] [address] [address] [address] James Crowley CO2 [Moles/Vol] 28.0 mmol/L Normal 21.0-32.0 [place] Comment on above: Performed By: #### U NEO, LIPID #### [facility] [address] [place] [address] Dr. James Crowley Creatinine [Mass/Vol] 1.10 mg/dL Normal 0.70-1.30 [facility] Comment on above: Performed By: #### U NEO, LIPID #### [facility] [address] [place] [address] Dr. James Crowley EGFR-AF ECUADOREAN >60 Normal >=60 [place] Comment on above: Performed By: #### U NEO, LIPID #### [facility] [address] [address] [address] James Crowley EGFR-NON AF ECUADOREAN >60 Normal >=60 [facility] Comment on above: Performed By: #### U NEO, LIPID #### [facility] [address] [place] [address] Dr. James Crowley Globulin (S) [Mass/Vol] 3.9 g/dL Normal [facility] Comment on above: Performed By: #### U NEO, LIPID #### [facility] [address] [address] [address] James Crowley Glucose [Mass/Vol] 98 mg/dL Normal 74-106 [facility] Comment on above: Performed By: #### U NEO, LIPID #### [facility] [address] [address] [address] James Crowley Potassium [Moles/Vol] 3.8 mmol/L Normal 3.5-5.1 [facility] Comment on above: Performed By: #### U NEO, LIPID #### [facility] [address] [address] [address] James Crowley Protein [Mass/Vol] 7.6 g/dL Normal 6.4-8.2 [facility] Comment on above: Performed By: #### U NEO, LIPID #### [facility] [address] [address] [address] James Crowley Sodium [Moles/Vol] 146 mmol/L Critically high 136-145 [facility] Comment on above: Performed By: #### U NEO, LIPID #### [facility] [address] [address] [address] James Crowley Urea nitrogen [Mass/Vol] 18.0 mg/dL Normal 7.0-18.0 [facility] Comment on above: Performed By: #### U NEO, LIPID #### [facility] [address] [address] [address] James Crowley Urea nitrogen/Creatinine [Mass ratio] 16.4 mg/mg Normal [facility] Comment on above: Performed By: #### U NEO, LIPID #### [facility] [address] [address] [address] James Crowley URIC ACID SERUMon 04-08-2023 Urate [Mass/Vol] 6.7 mg/dL Normal 3.5-7.2 [place] Comment on above: Performed By: #### U NEO, LIPID #### [facility] [address] [address] [address] CHEST WO CONon 01-04-2023 CT CHEST [...] by: LEONOR MA Date: 2023-01-04 10:52 Normal [facility] [address] CHEST WO CONon 10-07-2022 CT CHEST [...] by: LEONOR MA Date: 2022-10-07 16:05 Normal [facility] ACID FAST SMEAR AND CXon Acid Fast Culture Negative Normal [facility] Comment on above: Result Comment: No a tomi fast bacilli isolated after 6 weeks. Performed By: #### U NEO, LIPID #### [facility] [address] [address] [address] James Crowley Acid Fast Smear Negative Normal [facility] Comment on above: Performed By: #### U NEO, LIPID #### [facility] [address] [address] [address] James Crowley [employer] Specimen Processing Concentration Normal [facility] Comment on above: Performed By: #### U NEO, LIPID #### [facility] [address] [address] [address] James Crowley FUNGAL AB QUANTITAIVE DOUBLE IMMUNODIFFUon 08-22-2022 Aspergillus flavus Negative Normal Neg:<1:1 [facility] Comment on above: Performed By: #### F UNGUYI #### [facility] [address] [address] [address] James Crowley Aspergillus fumigatus Negative Normal Neg:<1:1 [facility] Comment on above: Performed By: #### F UNGUYI #### [facility] [address] [address] [address] James Crowley Aspergillus niger Negative Normal Neg:<1:1 [facility] Comment on above: Performed By: #### F UNGUYI #### [facility] [address] [address] [address] James Crowley Blastomyces Negative Normal Neg:<1:1 [facility] Comment on above: Performed By: #### F UNGUYI #### [facility] [address] [address] [address] James Crowley COXSACKIE B VIRUS ANTIBODIES on 08-21-2022 [place] B-1 Ab Negative Normal Neg:<1:8 [facility] Comment on above: Performed By: #### C OXSBV #### [facility] [address] [place] [address] Dr. James Crowley [place] B-2 Ab Negative Normal Neg:<1:8 [facility] Comment on above: Performed By: #### C OXSBV #### [facility] [address] [place] [address] Dr. James Crowley coxsackie B-3 Ab Negative Normal Neg:<1:8 [facility] Comment on above: Performed By: #### C OXSBV #### [facility] [address] [place] [address] Dr. James Crowley [place] B-4 Ab Negative Normal Neg:<1:8 [facility] Comment on above: Performed By: #### C OXSBV #### [facility] [address] [address] [address] James Crowley [place] B-5 Ab Negative Normal Neg:<1:8 [facility] Comment on above: Performed By: #### C OXSBV #### [facility] [address] [address] [address] James Crowley [place] B-6 Ab Negative Normal Neg:<1:8 [facility] Comment on above: Performed By: #### C OXSBV #### [facility] [address] [address] [address] James Crowley HISTOPLASMA CAP AB QUANT DID on 08-21-2022 Histoplasma Mycelial CF Ab. Negative Normal Neg:<1:2 [facility] Comment on above: Performed By: #### H ISTGAL #### [facility] [address] [address] [address] James Crowley Histoplasma Yeast CF Ab Negative Normal Neg:<1:2 [facility] Comment on above: Performed By: #### H ISTGAL #### [facility] [address] [address] [address] James Crowley COX[place] A VIRUS AB IGMon 0 08-20-2022 [place] A16 IgM Negative Normal Neg:<1:10 [facility] Comment on above: Performed By: #### C OXSIGM #### [facility] [address] [place] [address] Dr. James Crowley [place] A24 IgM Negative Normal Neg:<1:10 [facility] Comment on above: Performed By: #### C OXSIGM #### [facility] [address] [address] [address] James Crowley [place] A7 IgM Negative Normal Neg:<1:10 [place] Comment on above: Performed By: #### C OXSIGM #### [facility] [address] [address] [address] James Crowley [place] A9 IgM Negative Normal Neg:<1:10 [facility] Comment on above: Performed By: #### C OXSIGM #### [facility] [address] [address] [address] James Crowley HISTOPLASMA GALACTOMANNAN AG URINEon 08-20-2022 Histoplasma Gal'shwetha Ag <0.5 Normal <0.5 ng/mL [facility] Comment on above: Performed By: #### H ISTGAL #### [facility] [address] [address] [address] James Crowley QUANTIFERON TB GOLD PLUSon 0 08-20-2022 QuantiFERON Criteria Comment Normal [facility] Comment on above: Result Comment: Vick [...] test. Performed By: #### Q NTTB #### [facility] [address] [place] [address] Dr. James Crowley QuantiFERON Incubation Incubation performed. Normal [facility] Comment on above: Performed By: #### Q NTTB #### [facility] [address] [place] [address] Dr. James Crowley QuantiFERON Mitogen Value >10.00 Normal [facility] Comment on above: Performed By: #### Q NTTB #### [facility] [address] [place] [address] Dr. James Crowley QuantiFERON Nil Value 0.04 IU/mL Normal [facility] Comment on above: Performed By: #### Q NTTB #### [facility] [address] [place] [address] Dr. James Crowley QuantiFERON TB1 Ag Value 0.04 IU/mL Normal [facility] Comment on above: Performed By: #### Q NTTB #### [facility] [address] [place] [address] Dr. James Crowley QuantiFERON TB2 Ag Value 0.05 IU/mL Normal [facility] Comment on above: Performed By: #### Q NTTB #### [facility] [address] [place] [address] Dr. James Crowley QuantiFERON-TB Gold Plus Negative Normal Negative [facility] Comment on above: Result Comment: No r esponse to M tuberculosis antigens detected. Infection with M tuberculosis is unlikely, but high risk individuals should be considered for additional testing (ATS/IDSA/CDC Clinical Practice Guidelines, 2017). The reference range is an Antigen minus Nil result of <0.35 IU/mL. Chemiluminescence immunoassay methodology Performed By: #### Q NTTB #### [facility] [address] [address] [address] James Crowley CREATININEon 08-18-2022 Creatinine [Mass/Vol] 0.97 mg/dL Normal 0.70-1.30 [facility] Comment on above: Performed By: #### H ISTGAL #### [facility] [address] [place], [place] [address] Dr. James Crowley EGFR-AF ECUADOREAN >60 Normal >=60 [place] Comment on above: Performed By: #### H ISTGAL #### [facility] [address] [address] [address] James Crowley EGFR-NON AF ECUADOREAN >60 Normal >=60 [facility] Comment on above: Performed By: #### H ISTGAL #### [facility] [address] [address] [address] CHEST W CONon [...] LEONOR MA Date: 2022-08-18 10:27 Normal [facility] CULTURE SPUTUMon 08-18-2022 CULTURE SPUTUM Isolate 1 Haemophilus parainfluenzae Moderate growth of Normal [facility] Comment on above: Result Comment: Beta -Lactamase: Negative Performed By: #### H ISTGAL #### [facility] [address] [address] [address] James Crowley SPUTUM GRAM STAINon 08-18-20 22 COMMENTS Normal [facility] Comment on above: Performed By: #### H ISTGAL #### [facility] [address] [address] [address] James Crowley DIPHTHEROIDS [facility] Comment on above: Performed By: #### H ISTGAL #### [facility] [address] [address] [address] James Crowley EPITHELIALS <25 Normal [facility] Comment on above: Performed By: #### H ISTGAL #### [facility] [address] [address] [address] James Crowley FUNGAL ELEMENTS Normal [facility] Comment on above: Performed By: #### H ISTGAL #### [facility] [address] [address] [address] James Crowley GRAM NEG BACILLI Normal [place] Comment on above: Performed By: #### H ISTGAL #### [facility] [address] [address] [address] James KAN NEG DIPPLOCOCCI FEW [facility] Comment on above: Performed By: #### H ISTGAL #### [facility] [address] [address] [address] James Crowley GRAM POS BACILLI Normal [facility] Comment on above: Performed By: #### H ISTGAL #### [facility] [address] [address] [address] James Crowley GRAM POSITIVE COCCI FEW Normal [facility] Comment on above: Performed By: #### H ISTGAL #### [facility] [address], [place] [address] Dr. James Crowley WBC (Bld) [#/Vol] 10*3/uL Normal [facility] Comment on above: Performed By: #### H ISTGAL #### [facility] [address] [address] [address] James Crowley XR RIBS RT PA [...] [place] CISNEROS Date: 2022-08-12 13:02 Normal [facility] Covid-19 PCR (CVDTB)on SARS-CoV-2 (COVID-19) RNA SOURAV+probe Ql (Unsp spec) Not detected Normal NOT DETECTED [facility] Comment on above: Result Comment: When [...] for this test is supported by the [place] of Health and Human Service's declaration that [...] used). Performed By: #### C VDTBH #### [facility] [address] [place] [id number] [address] James Rey 03-24-2021 L Specimen: [id number] Received: 03/24/21 Status: [place] Nix Num: [id number] Spec Type: Surgical Subm Dr: Bryan Quick MD Tissues: A Skin-Other than Cyst, tag, debridement or plastic repair (LT NASAL DORSUM) Procedures: HE Stain, Gross/Micro L4 Patient Age/Sex Location Account Attending Physician Mateo Stearns/Oj CÁRDENAS [id number] Bryan Quick MD SPEC NUM: RECD: 03/24/21 STATUS: [place] NIX NUM: [id number] FRANCISCA: 03/24/21 [facility] DR: Bryan Quick MD ENTERED: 03/24/[address] [facility] [address]: SPEC TYPE: Surgical DEPT: S ORDERED: HE Stain, Gross/Micro L4 ORDERED: HE Stain, Gross/Micro L4 Pathological Diagnosis Skin, left nasal dorsum, biopsy: - Actinic keratosis and solar elastosis - Epidermal inclusion cyst Clinical Information Mass increasing in size primary biopsy Gross Description Received in formalin labeled with the patient's name, number and left nasal dorsum are 2 rviera-pink to red, ragged tissue fragments that measure 1.2 cm and 1.4 cm. The resection margin is indeterminate. Entirely submitted in one cassette labeled A1. (SM/JS) Microscopic Description One glass slide with H E stained material has been examined. The microscopic findings support the above pathologic diagnosis. [id number] Specimen: Received: 03/24/21 Status: [place] Nix Num: [id number] Spec Type: Surgical Subm Dr: Bryan Quick MD Tissues: A Skin-Other than Cyst, tag, debridement or plastic repair (LT NASAL DORSUM) Procedures: HE Stain, Gross/Micro L4 Patient: Mateo Stearns [id number] (Continued) Signed (signature on file) Cindy Garcia MD 03/25/21 1824 [facility] Vital Signs Date Time Vital Sign Value Performing Clinician Dom jesus 05-21-2024 11:35-0400 Blood Pressure Location Pino Audacious [facility] 05-21-2024 11:35-0400 Body temperature 98.6 [degF] Pino Audacious [facility] 05-21-2024 11:35-0400 Diastolic blood pressure 84 mm[Hg] Pino VALDEZ [facility] 05-21-2024 11:35-0400 Heart rate 76 /min Pino [facility]acious [facility] 05-21-2024 11:35-0400 Respiratory rate 16 /min Pino Audacious [facility] 05-21-2024 11:35-0400 Systolic blood pressure 139 mm[Hg] Pino VALDEZ [facility] 06-06-2023 10:36-0400 Blood Pressure Location Pino VALDEZ [facility] 06-06-2023 10:36-0400 Diastolic blood pressure 76 mm[Hg] Pino VALDEZ [facility] 06-06-2023 10:36-0400 Heart rate 72 /min Pino VALDEZ [facility] 06-06-2023 10:36-0400 Respiratory rate 16 /min Pino VALDEZ [facility] 06-06-2023 10:36-0400 Systolic blood pressure 130 mm[Hg] Pino VALDEZ [facility] 02-07-2023 12:42-0400 Blood Pressure Location Pino VALDEZ [facility] 02-07-2023 12:42-0400 Diastolic blood pressure 77 mm[Hg] Pino VALDEZ [facility] 02-07-2023 12:42-0400 Heart rate 74 /min Pino VALDEZ [facility] 02-07-2023 12:42-0400 Systolic blood pressure 138 mm[Hg] Pino VALDEZ [facility] 05-17-2022 12:56-0400 Blood Pressure Location Pino VALDEZ [facility] 05-17-2022 12:56-0400 Diastolic blood pressure 87 mm[Hg] Pino VALDEZ [facility] 05-17-2022 12:56-0400 Heart rate 79 /min Pinomichelle VALDEZ [facility] 05-17-2022 12:56-0400 Respiratory rate 16 /min Pino VALDEZ [facility] [place] 05-17-2022 12:56-0400 Systolic blood pressure 139 mm[Hg] Pino VALDEZ [facility] En[facility]ters Encounter Date Encounter Type Care Provider Facility Start: 06-01-2024 End: 06-01-2024 ambulatory Amandeep Crisostomo MD Work Phone: Urology Start: 05-21-2024 End: 05-21-2024 ambulatory Pino VALDEZ Facility:[facility] Start: 05-21-2024 End: 05-21-2024 Patient encounter procedure Pino VALDEZ [facility] [place] Start: 05-01-2024 End: 05-01-2024 ambulatory Pino VALDEZ [facility] Start: 05-01-2024 End: 05-01-2024 Patient encounter procedure Pino VALDEZ [facility] Start: 02-28-2024 End: 02-28-2024 ambulatory KATHIE SÁNCHEZ Not Available Start: 01-05-2024 Clinisync Result Encounter Generic External Data Provider [facility] External Department Unsolicited Start: 01-05-2024 Clinisync Result Encounter Generic External Data Provider [facility] External Department Unsolicited Start: 01-02-2024 End: 01-02-2024 ambulatory Pino VALDEZ Facility:[facility] Start: 07-22-2023 ambulatory Pino Omalleyi ty:[facility] [place] Start: 06-06-2023 End: 06-06-2023 ambulatory Pino VALDEZ Facility:[facility] [place] Start: 06-06-2023 End: 06-06-2023 Patient encounter procedure Pino VALDEZ [facility] Start: 05-17-2023 End: 05-17-2023 Patient encounter procedure Pino VALDEZ [facility] Start: 04-12-2023 End: 04-13-2023 ambulatory SPA ASSISTANT MANAGER KATHIE SÁNCHEZ Facility:[facility] Start: 04-08-2023 End: 04-09-2023 ambulatory SPA ASSISTANT MANAGER KATHIE AICKashmirDIAMONDMatias Facility:[facility] Start: 02-07-2023 End: 02-07-2023 Patient encounter procedure Pino VALDEZ [facility] Start: 01-04-2023 End: 01-05-2023 ambulatory SPA ASSISTANT MANAGER KATHIE SÁNCHEZ Facility:[facility] Start: 10-07-2022 End: 10-08-2022 ambulatory SPA ASSISTANT MANAGER KATHIE AICSUKHWINDER Facility:[facility] Start: 08-18-2022 End: 08-19-2022 ambulatory ROBERTO ALVES . Facility:[facility] Start: 08-12-2022 End: 08-12-[address] ELSA RAE . Facility:[facility] Start: 07-20-2022 End: 08-11-2022 Pre-admission assessment Pino VALDEZ [facility] Start: 05-17-2022 End: 06-16-2022 Pre-admission assessment Pino VALDEZ [facility] Start: 05-17-2022 End: 05-17-2022 Patient encounter procedure Pino VALDEZ [facility] Start: 05-03-2022 End: 05-03-2022 ambulatory ROBERTO ALVES . Facility: Start: 03-24-2021 End: 03-24-2021 Departed Referred Bryan Quick Work Phone: [facility] [place] Procedures Date Procedure Procedure Detail Performing Clinician Start: 06-01-2024 Urnls dip stick/tabl et rgnt auto w/o microscopy Bulk Order Provider Start: 05-01-2024 Transrectal biopsy o f prostate using ultrasound guidance Pinomichelle VALDEZ Start: 01-05-2024 BLOOD CULTURE 2 Generic External Data Provider Start: 01-05-2024 BLOOD CULTURE 1 Generic External Data Provider Start: 04-08-2023 PSA screening SPA ASSISTANT MANAGER KATHIE SÁNCHEZ Comment on above: Performed By: #### [facility] #### [facility] [address] [place] [address] Dr. James Crowley Colonoscopy Pino VALDEZ Procedure on foot Pino LAKESHA LEON Repair of hip Pino VALDEZ Comment on above: Both hips Both hips Transrectal needle b iopsy of prostate Pino VALDEZ Plan of Treatment Date Care Activity Detail Author Start: 03-11-2031 Urine microalbumin profile DTaP,Tdap,Td Vaccine (2 - Td or Tdap) [facility] Start: 07-29-2024 Influenza vaccination Influenza Vacc ine (#1) [facility] Start: 11-28-2023 Advance Directive Discussion Advance Directive Discussion [facility] Start: 11-28-2023 Behavioral Health Screening Behavioral Health Screening [facility] Start: 07-29-2023 Covid-19 Vaccine ( season) Covid-19 Vaccine ( season) [facility] Start: 07-29-2023 Influenza vaccination Influenza Vacc ine (#1) [facility] Start: 2023 Pneumococcal Vaccine : 65+ Years (1 - PCV) Pneumococcal Vaccine: 65+ Years (1 - PCV) [facility] Start: 2018 RSV Vaccine (1 - 1-d ose 60+ series) RSV Vaccine (1 - 1-dose 60+ series) [facility] Start: 2013 Prostate specific an tigen measurement Prostate Cancer Screening Discussion [facility] Start: 2003 Diabetes Screening Diabetes Screenin g [facility] Start: 2003 Screening for malign ant neoplasm of colon [facility] Start: 1993 Lipid panel Lipid Screening [facility] Start: 1988 Zoledronic acid therapy Alpha- 1 Antitrypsin Deficiency Screening [facility] Start: 1976 Annual PCP Team 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 Therapy sully Disease Visit Annual PCP Team Chronic Disease Visit [facility] Start: 1976 Hepatitis C screening Hepatitis C Sc reening [facility] Start: 1976 HIV screening HIV Screening [facility] Start: 1976 Spirometry Spirometry [facility] Start: 1964 Pneumococcal Vaccine : 65+ (1 of 2 - PCV) Pneumococcal Vaccine: 65+ (1 of 2 - PCV) [facility] Start: 1958 Abdominal aortic ane urysm screening Abdominal Aortic Aneurysm Screening [facility] Start: 1958 Medicare Annual Well ness (AWV) Medicare Annual Wellness (AWV) [facility] Start: 1958 Screening for malign ant neoplasm of colon [facility] BLOOD CULTURE 1 BLOOD CULTURE 1 Lab Routine 01/05/2024 4:58 PM EST [facility] BLOOD CULTURE 2 BLOOD CULTURE 2 Lab Routine 01/05/2024 5:04 PM EST [facility] Immunizations Immunization Date Immunization Notes Care Provider Jenni dominguez 09-17-2023 zoster vaccine recombinant Pino VALDEZ [facility] 07-04-2023 zoster vaccine recombinant Pino VALDEZ [facility] 09-25-2022 SARS-CoV-2 (COVID-19 ) [id number] Pino VALDEZ [facility] 05-26-2021 SARS-CoV-2 (COVID-19 ) mRNA BNT-162b2 vax Pino VALDEZ [facility] 05-05-2021 SARS-CoV-2 (COVID-19 ) mRNA BNT-162b2 vax Pino VALDEZ [facility] 03-11-2021 tetanus toxoid, redu liyah diphtheria toxoid, and acellular pertussis vaccine, adsorbed Pino VALDEZ [facility] Payers Date Payer Category Payer Unknown [facility] MEDICARE ADVANTAGE HMO [id number] 2023-Present [phone] [address] [place] [address] O [id number] 2022 Medicare [facility]MERLY [facility] MEDICARE ADVANTAGE FORMERLY [facility] MEDICARE ADVANTAGE [id number] 2022-Present [address] [place] [address] [id number] 2020 Medicaid MEDICAID [facility] [id number] 2020-Present [phone] [address] [place] [address] Medicaid [id number] 1959 Medicaid [id number] 1959 Medicare [id number] 1959 Unknown [id number] 1958 Unknown [id number] 1958 Unknown [id number] [id number] 1958 Unknown [id number] [id number] 1958 Unknown [id number] 1958 Unknown [id number] [id number] 1958 Unknown [id number] [id number] 1958 Unknown [id number] [id number] 1958 Unknown [id number] [id number] 1958 Unknown [id number] [id number] 1958 Unknown [id number] [id number] 1958 Unknown [id number] [id number] 1958 Unknown [id number] [id number] 1958 Unknown [id number] [id number] 1958 Unknown [id number] [id number] Self-pay Self Pay [id number] Social History Date Type Detail [facility] Start: 1960 Sex Assigned At Male F [facility] Start: 05-17-2022 End: 05-21-2024 Tobacco smoking status Ex-smoker (finding) [facility] Start: 11-13-2023 End: 06-01-2024 Sex Assigned At Male [facility] Tobacco smoking status Never [facility] End: 11-28-2015 History of tobacco use Current smoker [facility] End: 11-28-2015 History of tobacco use Cigarette Smoker [facility] Start: 11-13-2023 End: 06-01-2024 Cigarettes smoked current (pack per day) - Reported 2 [facility] Start: 11-13-2023 Alcohol intake Ex-drinker (finding) [facility] Start: 1960 Sex Assigned At Not on file [facility] Start: 05-16-2013 Tobacco smoking stat [facility] Smokes tobacco daily [facility] Start: 05-16-2013 Tobacco use and exposure Smokeless tobacco non-user [facility] Start: 05-16-2013 Alcohol intake Current drinke r of alcohol (finding) [facility] Goals Date Patient Goal Desired Activity /State Functional Status Date Assessment Result Facility 05-21-2024 Functional Status N/A [facility] 06-06-2023 Functional Status N/A [facility] 05-17-2023 Functional Status N/A [facility] 02-07-2023 Functional Status N/A [facility] 08-05-2022 N/A [facility] 06-11-2022 Functional Status N/A [facility] 05-17-2022 Functional Status N/A [facility] Clinical Notes 05-17-2022 to 06-01-2024 Note Date & Type Note Facility 06-01-2024 Note Patient Outreach (UR OLMN) MATEO STEARNS ([id number]) 1960 M Date Time Provider Department 06/01/24 AMANDEEP CRISOSTOMO During your visit today, we recorded the following information about you: Allergies As of Date: 06/01/2024 (No Known Allergies) Date Reviewed: 06/01/2024 Reviewed by: Garrett Davis MA - Fully Assessed Visit Diagnosis:Screening for genitourinary condition [Z13.89] Order(s):URINALYSIS, REFLEX MICROSCOPIC [[id number]] Order #: [id number]. #:[id number] Prescriptions as of 06/04/2024 - aspirin, enteric coated (ASPIRIN, ENTERIC COATED) 81 mg EC tablet TAKE 1 TABLET (81 MG) BY MOUTH IN THE MORNING - Benzonatate 200 mg capsule take 1 capsule by mouth 3 times a day as needed for cough - budesonide-formoterol (SYMBICORT) 160-4.5 mcg/actuation inhaler INHALE 2 PUFFS INTO THE LUNGS TWICE A DAY FOR 90 DAYS *RINSE MOUTH AFTER USE* - RESTASIS 0.05 % ophthalmic emulsion APPLY ONE DROP IN BOTH EYES 2 TIMES A DAY. - dilTIAZem XR (DILACOR XR) 180 mg 24 hr capsule Take 180 mg by mouth once daily. - guaiFENesin (MUCINEX) 600 mg 12 hr tablet Take 1,200 mg by mouth. - pantoprazole DR (PROTONIX) 40 mg tablet Take 40 mg by mouth. - roflumilast (DALIRESP) 500 mcg tab Take 500 mcg by mouth once daily. - tiotropium (SPIRIVA WITH HANDIHALER) 18 mcg inhalation capsule Inhale 18 mcg as instructed once daily. - ALBUTEROL SULFATE (PROVENTIL HFA INHALATION) Inhale as instructed. - IBUPROFEN (ADVIL ORAL) Take by mouth. - fluticasone-salmeterol (ADVAIR DISKUS) 250-50 mcg/dose DsDv Inhale 1 Puff as instructed twice daily. - doxycycline 100 mg tablet Take 1 tablet by mouth twice daily. - predniSONE 20 mg tablet Take 2 pills daily x 3 days Problem List As Of Date 06/01/2024 Noted Resolved Imbalance [R26.89] 05/16/2013 COPD (chronic obstructive pulmonary disease) [J*05/16/2013 Tobacco abuse [Z72.0] 05/16/2013 Alcoholism [F10.20] 05/16/2013 Marijuana smoker [F12.90] 05/16/2013 Encounter Status:Closed by ZAHEER DOYLEUSER on 06/04/24 [facility] 05-21-2024 Hospital Discharg e instructions Patient Education 05/21/2024 12:39:10 Prostate Cancer Prostate Cancer The prostate is [...] under a microscope. This is called the [place] score and the total score can range from 6 10, indicating how likely it is that the cancer will spread (metastasize) to other parts of the body. The higher the score, the greater the likelihood that the cancer will spread. [place] 6 or lower: This indicates that the cancer cells look similar to normal prostate cells (well differentiated). Bren[place] 7: This indicates that the cancer cells look somewhat similar to normal prostate cells (moderately differentiated). [place] 8, 9, or 10: This indicates that [...] stress of having cancer. General instructions Take ucnk-qll-wrbeozx and prescription medicines only as told by your health care provider. If you have to go to the hospital, notify your cancer specialist (oncologist). Keep all follow-up visits. This is important. Where to find more information [place] [employer]: www.cancer.org [place] Society of Clinical Oncology: www.cancer.net National Cancer [place]: www.cancer.gov Contact a health care provider if: [...] provider. Document Revised: 02/10/2022 Document Reviewed: 02/10/2022 Service Route Patient Education 2022 [employer]. Follow Up Care 01/02/2024 13:58:04 With:DIONY CHANDLER, Pino Reina, URL Address: [facility] [address] , [place] [address]- [phone] When: Unknown [facility] 05-01-2024 Hospital Discharg e instructions Patient Education 05/01/2024 11:59:06 [facility] - Transrectal Ultrasound of the Prostate [...] for your post-operative appointment in 1-2 weeks [phone] or [phone] Follow Up Care 03/15/2024 14:41:59 With:Pino VALDEZ Address: [address] [place] [address]- Business (1) When: Unknown Comments:Keep scheduled appointment [facility] 05-01-2024 Note [id number] [facility] 06-06-2023 Hospital Discharg e instructions Patient Education [...] similar to normal prostate cells (well differentiated). [place] 7: This indicates that the cancer cells [...] stress of having cancer. General instructions Take vkco-yrg-swwwmrw and prescription medicines only as told by your health care provider. If you have to go to the hospital, notify your cancer specialist (oncologist). Keep all follow-up visits. This is important. Where to find more information [place] [employer]: www.cancer.org [place] Society of Clinical Oncology: www.cancer.net National Cancer [place]: www.cancer.gov Contact a health care provider if: [...] provider. Document Revised: 02/10/2022 Document Reviewed: 02/10/2022 Service Route Patient Education 2022 [employer]. Follow Up Care 04/27/2023 15:15:09 With:DIONY CHANDLER, Pino Reina, URL Address: [facility] [address] , [place] [address]- [phone] When:Within 6 Month(s) Comments:PSA and ANNE-MARIE [facility] [place] 05-17-2023 Hospital Discharg e instructions Patient Education [...] for your post-operative appointment in 1-2 weeks [phone] or [phone] Follow Up Care 04/27/2023 15:25:07 With:Pino VALDEZ Address: [facility] [address], [place] [address]- Business (1) When: Unknown Comments:Keep scheduled appointment [facility] 02-07-2023 Hospital Discharg e instructions [...] if anything looks unusual. Men with a ptjodp-wtim-lvhkhx risk for skin cancer may want to see a distribution specialist (mechanic welder truck driver) for an annual body check. Where to find more information National Cancer [place]: https://www.cancer.gov/about-ca ncer/screening Centers for Disease Control and Prevention: https://www.cdc.gov/cancer/dcpc /prevention/screening.htm [place] [employer]: https://www.cancer.org/latest-n ews/3-gphzdd-gvoyqaoee-tests-fo r-men.html Contact a health care provider if: [...] 08/11/2017 Document Revised: 08/03/2019 Document Reviewed: 08/11/2017 Service Route Patient Education 2020 [employer]. Follow Up Care 12/10/2022 10:33:39 With:DIONY CHANDLER, Pino Reina, URL Address: [facility] [address] [place] [address]- When: Unknown [facility] 05-17-2022 Hospital Discharg e instructions Patient Education 05/17/2022 13:40:29 Epidermal Cyst, Esss-oi-Maow Epidermal Cyst An epidermal cyst is a [...] yourself. Follow these instructions at home: Take huqj-chd-ryqmnfv and prescription medicines only as told by [...] the cyst, or to remove it. Take zlno-nbg-lipgala and prescription medicines only as told by [...] 12/22/2005 Document Revised: 03/06/2020 Document Reviewed: 08/23/2019 Service Route Patient Education 2019 [employer]. 04/19/2022 08:23:29 Testicular Self-Exam Testicular Self-Exam A [...] 02/20/2002 Document Revised: 03/06/2020 Document Reviewed: 10/10/2017 Service Route Patient Education 2020 [employer]. Follow Up Care 03/17/2022 10:53:14 With:Pino VALDEZ MD, URL Address: [facility] [address], [place] [address]- When: Unknown [facility] Evaluation + Plan note Future Appointments Appointment Date:06/08/2022 08:45:00 AM Scheduled Provider: Location:[facility] Appointment Type:Urology CALL PAT FT Appointment Date:06/15/2022 09:00:00 AM Scheduled Provider: Location:[facility] Appointment Type:Urology FT [facility] Evaluation + Plan note Future Appointments Appointment Date:08/23/2022 12:30:00 PM Scheduled Provider:Pino VALDEZ MD [facility] App[facility] Type:URO Office Visit [facility] Evaluation + Plan note Future Appointments Appointment Date:06/06/2023 09:45:00 AM Scheduled Provider:Pino VALDEZ MD [facility] Appoint[facility] Type:URO Office Visit Diagnostic Tests PendingProstate Histology ([facility]) 05/17/23 [facility] Evaluation + Plan note Future Appointments Appointment Date:12/09/2023 10:45:00 AM Scheduled Provider:Pino VALDEZ MD [facility] Appoint[facility] Type:URO Office Visit Diagnostic Tests PendingPSA Total 7/10/23 [facility] Evaluation + Plan note Future Appointments Appointment Date:05/21/2024 11:30:00 AM Scheduled Provider:Pino VALDEZ MD Location:[facility] Appointment Type:URO Office Visit Diagnostic Tests PendingProstate Histology ([facility]) 05/01/24 [facility] Evaluation + Plan note [facility] Evaluation note No Assessments Infor mation Available [facility] Evaluation note Diagnosis Screening for genitourinary condition Screening for other and unspecified genitourinary condition documented in [facility] Narrative No data available for this section [facility] [employer] [facility] Discharge instructions No data available for this section [facility] No data available for this section [facility] [employer] reason for referral (narrative) Referred by: Pino VALDEZ MD [facility] [employer] Summary Purpose Family History No Family History Records FoundNo Family History Records FoundNo Family History Records Found No data available for this section No Family History Records Found No data available for this section No Family History Records FoundNo Family History [...] section and content) DATE CREATED AUTHOR 04/01/2021 [facility] [facility] DATE CREATED AUTHOR AUTHOR'S ORGANIZ ATION 04/13/2023 [facility] pital DATE CREATED AUTHOR AUTHOR'S ORGANIZ ATION 02/29/2024 [facility] DATE CREATED AUTHOR AUTHOR'S ORGANIZ ATION 05/18/2024 Robert Melendez [facility] DATE CREATED AUTHOR AUTHOR'S ORGANIZ ATION 05/22/2024 Robert Plumas [facility] DATE CREATED AUTHOR AUTHOR'S ORGANIZ ATION 06/12/2024 [facility] Care Team (unrecognized sect ion and content) Mission Systems Engineer Relationship Specialty Start Date End Date Curt De Dios MD [address] [place] [id number] PCP - General Family Medicine 11/11/23 Kathie Sánchez NP [address] [place] [address] Nurse Practitioner Family Medicine 10/03/23 Mission Systems Engineer Relationship Specialty Start Date End Date Peter Arceo DO PCP - General Family Medicine 05/11/13 Source Comments (unrecognize d section and content) In the event this informatio n is protected by the Federal Confidentiality of Alcohol and Drug Abuse Patient Records regulations: The Federal rules restrict any use of the information to criminally investigate or prosecute any alcohol or drug abuse patient.[facility] FOR RECORDS PERTAINING TO PATIENTS WHO ARE [...] BE BASED ON THE PRIMARY CLINICAL RECORDS. [facility]. provides no warranty or guarantee of the accuracy or completeness of information in this document.
[2024-06-21 15:58] LABS: Prostate Specific Antigen Dx 6.82 ng/mL (<=4.00)
== END 2024-06-21 14:22 | disposition home or self-care (01) ==
LOC: LAB 14:24
PROVIDERS: PCP Nurse Practitioner
DX: C61 Malignant neoplasm of prostate (principal)
CPT/HCPCS: 36415; 84153

== ENCOUNTER 2024-09-07 09:53 | Outpatient (OUT) | payer MEDICARE, MEDICAID, SELFPAY ==
--- OUTSIDE RECORDS SUMMARY | 2024-09-07 10:00 | XMS_ITS | CCD ---
Author Organization [facility] Care Team Providers Care Loading Manager Name Role Phone Bryan Quick Attending Provider PURNIMA KATHIE Les Primary Care Physician [phone] AICHHOLZ, AIRCRAFT MAINTENANCE INSTRUCTOR KATHIE Primary Care Unavailable DR LEONOR MA Consulting Unavailable SAMSA ., ROBERTO Admitting Unavailable SAMSA ., ROBERTO Attending Unavailable SAMSA ., ROBERTO Consulting Unavailable AICHHOLZ, AIRCRAFT MAINTENANCE INSTRUCTOR KATHIE Admitting Unavailable AICHHOLZ, AIRCRAFT MAINTENANCE INSTRUCTOR KATHIE Attending Unavailable AICHHOLZ, AIRCRAFT MAINTENANCE INSTRUCTOR KATHIE Consulting Unavailable AICHHOLZ, AIRCRAFT MAINTENANCE INSTRUCTOR KATHIE Primary Care Unavailable AICHHOLZ, AIRCRAFT MAINTENANCE INSTRUCTOR KATHIE Admitting Unavailable AICHHOLZ, AIRCRAFT MAINTENANCE INSTRUCTOR KATHIE Primary Care Unavailable AICHHOLZ, AIRCRAFT MAINTENANCE INSTRUCTOR KATHIE Attending Unavailable AICHHOLZ, AIRCRAFT MAINTENANCE INSTRUCTOR KATHIE Consulting Unavailable AICHHOLZ, AIRCRAFT MAINTENANCE INSTRUCTOR KATHIE Primary Care Unavailable DR LEONOR MA Consulting Unavailable SAMSA ., ROBERTO Admitting Unavailable SAMSA ., ROBERTO Attending Unavailable SAMSA ., ROBERTO Consulting Unavailable DR LEONOR MA Consulting Unavailable SAMSA ., ROBERTO Admitting Unavailable SAMSA ., ROBERTO Attending Unavailable SAMSA ., ROBERTO Consulting Unavailable DR ELSA NOBLE Admitting Unavailable DR OK CISNEROS V Consulting Unavailable AICHHOLZ, AIRCRAFT MAINTENANCE INSTRUCTOR KATHIE Primary Care Unavailable DR ELSA NOBLE Attending Unavailable DR ELSA NBOLE Consulting Unavailable SAMSA ., ROBERTO Admitting Unavailable AICHHOLZ, AIRCRAFT MAINTENANCE INSTRUCTOR KATHIE Primary Care Unavailable SAMSA ., ROBERTO Attending Unavailable SAMSA ., ROBERTO Consulting Unavailable SAMSA ., ROBERTO Admitting Unavailable AICHHOLZ, AIRCRAFT MAINTENANCE INSTRUCTOR KATHIE Primary Care Unavailable DR LEONOR MA Consulting Unavailable SAMSA ., ROBERTO Attending Unavailable SAMSA ., ROBERTO Consulting Unavailable Aichholz COUNTER CONTROL OPERATOR, Kathie Unavailable Curt De Dios MD Primary Care Provider [phone] KATHIE SÁNCHEZ Attending Unavailable VALDEZ, Rufina Reina Attending Unavailable VALDEZ, Rufina R Attending Unavailable VALDEZ, Rufina R Attending Unavailable VALDEZ, Rufina R Attending Unavailable VALDEZ, Rufina R Admitting Unavailable VALDEZ, Rufina R Referring Unavailable VALDEZ, Rufina R Attending Unavailable ArceoPeter harvey DO Primary Care Provider Kathie Sánchez CNP Primary Care Provider Peter Arceo DO Primary Care Provider Severo FRENCH Attending Unavailable KATHIE SÁNCHEZ Primary Care Unavailable RUFINA VALDEZ Referring Unavailable ARCEOPETER HARVEY Primary Care Unavailab Severo Nice Attending Unavailable ARCEOPETER HARVEY Primary Care Unavailab AMANDEEP Bridges Attending Unavailable Allergies Allergy Classification Reported Allergen(s) Allergy Type Date of Onset Reaction(s) Facility (1 source) No Known Medication Allergies; Translations: [No Known Medication Allergies] Propensity to adverse reactions (disorder) [facility] Repository Medications Current Medications Medication Drug Class(es) Dates Sig (Normalized) Sig (Original) Albuterol (5 sources) beta2-Adrenergic Agonist ALBUTER OL SULFATE (PROVENTIL [...] aspirin 81 mg delayed release oral tablet (13 sources) Platelet Aggregation Inhibitor, Nonsteroidal Anti-inflammatory Drug [...] Start Date: 05/17/22 Status: Ordered Mike Alvarez (11 sources) Non-narcotic Antitussive Start: 08-05-2022 Malou Alvarez Oral, q12hr, PRN Cough Start Date: 08/05/22 Status: Ordered take [address] [facility] three times daily as needed for cough Benzonatate 200 mg capsule take 1 capsul e by mouth 3 times a day as needed for cough 0 Active Budesonide / formoterol (5 sources) Corticosteroid, beta2-Adrenergic Agonist take 2 puff(s) [...] Status: Ordered cycloSPORINE 0.5 mg/ml ophthalmic suspension (4 sources) Calcineurin Inhibitor Immunosuppressant Start: 05-14-2024 take 1 drop(s) into the eye(s) twice daily RESTASIS 0.05 % ophthalmic emulsion APPLY ONE DROP IN BOTH EYES 2 TIMES A DAY. 0 05/14/2024 Active 24 hr dilTIAZem hydrochloride 180 mg extended release oral capsule (13 sources) Calcium Channel Torres Start: 05-17-2022 take 1 capsule by mouth once daily Dilt-XR 180 mg/24 hours oral capsule, extended release 180 mg = 1 cap(s), Oral, Daily, Refills(s) 0 Start Date: 05/17/22 Status: Ordered Start: 05-17-2022 Dilt-XR 180 mg /24 hours oral capsule, extended release Refills(s) 0 Start Date: 05/17/22 Status: Ordered take [address] [facility] every twenty-four hours in the morning dilTIAZem XR (Dilacor XR) 180 MG 24 hr capsule Take 180 mg by mouth in the morning. 0 Active doxycycline hyclate 100 mg oral tablet (4 sources) Tetracycline-class Drug Start: 05-16-2013 take 1 tablet by mouth twice daily doxycycline 100 mg tablet Take 1 tablet by mouth twice daily. 14 tablet 0 05/16/2013 Active fluticasone / salmeterol (4 sources) Corticosteroid, beta2-Adrenergic Agonist take 1 puff(s) by inhalation twice daily fluticasone-salm eterol (ADVAIR DISKUS) 250-50 mcg/dose DsDv Inhale 1 Puff as instructed twice daily. 0 Active 12 hr guaiFENesin 600 mg extended release oral tablet (5 sources) guaiFENesin (MUCINEX) 600 mg 12 hr tablet Take 1,200 mg by mouth. 0 Active Ibuprofen (5 sources) Nonsteroidal Anti-inflammatory Drug IBUPROFEN (ADVIL ORAL) Take by mouth. 0 Active take 1 tablet by [facility] every six hours as needed for pain ibuprofen 800 MG tablet Take 800 mg by mouth every 6 (six) hours if needed for mild pain 0 Active pantoprazole 40 mg delayed release oral tablet (11 sources) Proton Pump Inhibitor Start: 08-05-2022 take 1 dose by mouth once daily Start: 05-30-2019 End: 08-26-[address] (PROTONIX) 4 0 mg tablet Take 40 mg by mouth. 0 05/30/2019 08/26/2024 Active predniSONE (7 sources) Start: 01-02-2024 predniSONE 10 mg Tab Refills(s) 0 Start Date: 01/02/24 Status: Ordered Start: 05-16-2013 predniSONE 20 mg tablet Take 2 pills daily x 3 days 6 tablet 0 05/16/2013 Active take 1 tablet by dominique in the morning predniSONE (Deltasone) 10 MG tablet Take 10 mg by mouth in the morning. 0 Active Roflumilast (15 sources) Phosphodiesterase 4 Inhibitor Start: 01-02-2024 Roflumilast 500 mcg oral tablet Refills(s) 0 Start Date: 01/02/24 Status: Ordered Start: 05-17-2022 take 1 tablet by dominique th once daily Daliresp 500 mcg oral tablet 500 mcg = 1 tab(s), Oral, Daily, Refills(s) 0 Start Date: 05/17/22 Status: Ordered take 1 tablet by dominique once daily roflumilast (DALIRESP) 500 mcg tab Take 500 mcg by mouth once daily. 0 Active sodium chloride 9 mg/ml inhalation solution (1 source) sodium chloride 0.9 % nebulizer solution Take 3 mL by nebulization if needed for wheezing 0 Active Sodium Phosphate, Dibasic / Sodium Phosphate, Monobasic (1 source) Start: 4 Fleet Enema 133 mL, Rectal, Once, 133 mL, Refill(s) 0, [facility]pharm[facility] #[id number], 175, cm, 01/02/24 12:45:00 EST, Height/Length Dosing, 63.1, kg, 01/02/24 12:45:00 EST, Weight Dosing Start Date: 04/17/24 Status: Ordered 60 actuat tiotropium 0.0025 mg/actuat inhalation spray (13 sources) Anticholinergic Start: 2 take 1 puff(s) [...] Date Documented Da te Episodic/Chronic Alcohol-related disorders (5 sources) Alcohol dependence, uncomplicated; Translations: [Alcoholism] Onset: 3 05-16-2013 Chronic Cancer of prostate (11 sources) Malignant neoplasm of prostate; Translations: [Malignant tumor of prostate] Onset: 3 Chronic Cardiac dysrhythmias (1 source) Atrial fibrillation; Translations: [Unspecified atrial fibrillation] Onset: 3 11-12-2023 Chronic Chronic obstructive pulmonary disease and bronchiectasis (5 sources) Emphysema, unspecified; Translations: [Chronic obstructive lung [...] Date Episodic/Chronic Other aftercare (1 source) Other long term care social worker (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 therapy; Translations: [OTH NURSING HOME CURRENT DRUG THERAPY] Onset: 08-13-2022 Episodic Other [...] Onset: 05-03-2022 Episodic Other nervous system disorders (4 sources) Impairment of balance; Translations: [Other abnormalities of gait and mobility] Onset: 05-16-2013 05-16-2013 Episodic Other nutritional; endocrine; and metabolic disorders (1 source) Abnormal weight loss; Translations: [ABNORMAL WEIGHT LOSS] Onset: 08-19-2022 Episodic Residual codes; unclassified (4 sources) Tobacco user; Translations: [Tobacco use] Onset: 05-16-2013 05-16-2013 Episodic Screening and history of mental health and substance abuse codes (1 source) Personal history of nicotine dependence; Translations: [PERSONAL HISTORY OF NICOTINE DEPEND] Onset: 08-13-2022 Episodic Substance-related disorders (4 sources) Marijuana user; Translations: [Cannabis use, unspecified, uncomplicated] Onset: 05-16-2013 05-16-2013 Episodic Results Test Name Value Interpretation Reference Range Facility [facility] 07-12-2024 CNOV Office Visit (RADTSA) MATEO STEARNS ([id number]) 1960 M Date Time Provider Department 07/12/24 1:15 PM Severo FRENCH During your visit today, we recorded the following information about you: Temperature Pulse Respiration Blood pressure 98.1 degrees 95/minute 18/minute 157/83 Weight 67.8 kg Severo French MD 07/12/2024 1:34 PM Signed Radiation Oncology - Prostate Cancer Follow-up note PATIENT NAME: Mateo Stearns PATIENT DIAGNOSIS: 63 year old male with prostate adenocarcinoma, initial PSA 4.46, biopsy Brenden score 3 + 3 = 6 (grade group 1), clinical stage T1c, N0, M0, stage I [cT1a-c/T2a, N0, M0, PSA <10, GG 1] (AJCC 8th ed.), s/p TRUS Random biopsy. HPI: Patient here for follow-up. He had Decipher testing. Decipher score: 0.43 (low risk) PSA 11/30/2023 4.22. 06/21/2024 6.8 Prior Radiation Therapy, Collagen Vascular Disease, or Inflammatory Bowel Disease: No Any implanted or external electric devices? No Currently on Anticoagulation: No History of Hip Replacement: No History of Prior TURP: No ALLERGIES No Known Allergies aspirin, enteric coated (ASPIRIN, ENTERIC COATED) 81 mg EC tablet TAKE 1 TABLET (81 MG) BY MOUTH IN THE MORNING Benzonatate 200 mg capsule take 1 capsule by mouth 3 times a day as needed for cough budesonide-formotero l (SYMBICORT) 160-4.5 mcg/actuation inhaler INHALE 2 PUFFS INTO THE LUNGS TWICE A DAY FOR 90 DAYS *RINSE MOUTH AFTER USE* RESTASIS 0.05 % ophthalmic emulsion APPLY ONE DROP IN BOTH EYES 2 TIMES A DAY. dilTIAZem XR (DILACOR XR) 180 mg 24 hr capsule Take 180 mg by mouth once daily. guaiFENesin (MUCINEX) 600 mg 12 hr tablet Take 1,[address] (PROTONIX) 40 mg tablet Take 40 mg by mouth. roflumilast (DALIRESP) 500 mcg tab Take 500 mcg by mouth once daily. tiotropium (SPIRIVA WITH HANDIHALER) 18 mcg inhalation capsule Inhale 18 mcg as instructed once daily. ALBUTEROL SULFATE (PROVENTIL HFA INHALATION) Inhale as instructed. IBUPROFEN (ADVIL ORAL) Take by mouth. fluticasone-salmeter ol (ADVAIR DISKUS) 250-50 mcg/dose DsDv Inhale 1 Puff as instructed twice daily. doxycycline 100 mg tablet Take 1 tablet by mouth twice daily. predniSONE 20 mg tablet Take 2 pills daily x 3 days PAST MEDICAL HISTORY No date: Atrial fibrillation (HCC) No date: COPD (chronic obstructive pulmonary disease) ([facility]) No date: Emphysema of lung ([facility]) No date: GERD (gastroesophageal reflux disease) PAST SURGICAL HISTORY 1967: ELBOW; Left No date: FOOT RIGHT OP SURGERY No date: REVISE MEDIAN N/CARPAL TUNNEL SURG; Left No date: TOTAL HIP REPLACEMENT; Bilateral FAMILY HISTORY Problem Relation Age of Onset COPD Father Social History Tobacco Use Smoking status: Former Packs/day: 2.50 Years: 37.00 Additional pack years: 0.00 Total pack years: 92.50 Types: Cigarettes Quit date: 2016 Years since quittin.6 Smokeless tobacco: Never Vaping Use Vaping Use: Never used Substance Use Topics Alcohol use: Not Currently Comment: quit 2016 Drug use: Not Currently Frequency: 2.0 times per week Types: Marijuana REVIEW OF SYSTEMS: GENERAL: feeling well without fatigue, no recent change in weight NECK: denies swelling or pain in neck RESPIRATORY: chronic lung disease under good control with current medication CARDIOVASCULAR: no chest pain, no palpitations MUSCULOSKELETAL: denies any painful or swollen joints, no muscle aches SKIN: no rash ENDOCRINE: denies cold/heat intolerance, denies polyuria or polydipsia, no goiter As noted in HPI PHYSICAL EXAM: VS: BP 157/83 Pulse 95 Temp 36.7 ?C (98.1 ?F) Resp 18 Wt 67.8 kg (149 lb 7.6 oz) SpO2 95% BMI 23.41 kg/m? KARNOFSKY PERFORMANCE STATUS: 100 General Appearance: Alert and oriented. No acute distress. Lymphatics: No palpable lymphadenopathy. GENITOURINARY: Deferred exam RECTAL: Deferred exam RADIOLOGY/LABORATORY DATA: see HPI ASSESSMENT/PLAN: Prostate adenocarcinoma, initial PSA 4.46, biopsy Franklin score 3 + 3 = 6 (grade group 1), clinical stage T1c, N0, M0, stage I [cT1a-c/T2a, N0, M0, PSA <10, GG 1] (AJCC 8th ed.), s/p TRUS Random biopsy. Prostate cancer (C61), 2019 NCCN Risk Group: Low Risk Group Clinical State: Localized Cancer - New Diagnosis Discussed options at length with the patient again. Patient still unsure what he wants to do in terms of treatment. We again discussed active surveillance. Discussed his decipher test for which is low risk but close to intermediate risk. Patient has had a second PSA drawn that has risen from 4.2-6.8 in 6 months. Patient did not want to make that decision at this time but seems to be leaning toward definitive treatment, at this time not interested in surgery. He does however want to wait a couple months and I think this would not be unreasonable can potentially be checked (more content not included)... Normal [facility] CNOVon 06-21-2024 CNOV Office Visit (ENRIQUEA) MATEO STEARNS ([id number]) 1960 M Date Time Provider Department 06/21/24 1:15 PM Severo FRENCH During your visit today, we recorded the following information about you: Temperature Pulse Respiration Blood pressure 97.5 degrees 86/minute 20/minute 124/75 Weight Height 67.8 kg 1.702 m Inez CallJACKIE 06/21/2024 1:50 PM Signed Pacemaker/Defibrilla tor?N Previous Cancer(s)?N Previous Radiation?N Lupus/Scleroderma?N On body monitoring device?N AUA= 5 Severo French MD 06/21/2024 1:50 PM Signed Radiation Oncology - Prostate Cancer New Patient/Consult Note PATIENT NAME: Mateo Stearns PATIENT REQUESTING PROVIDER: Dr. Valdez DIAGNOSIS: 63 year old male with prostate adenocarcinoma, initial PSA 4.46, biopsy Brenden score 3 + 3 = 6 (grade group 1), clinical stage T1c, N0, M0, stage I [cT1a-c/T2a, N0, M0, PSA <10, GG 1] (AJCC 8th ed.), s/p TRUS Random biopsy. HPI: 63 year old male with prostate adenocarcinoma who presents for an opinion regarding the role of radiation therapy in the management of the patient's disease. Final recommendations will be communicated back to the requesting physician by way of the shared medical record, or letter to requesting physician via US mail. The patient was diagnosed with prostate cancer and comes in today to discuss treatment options. Patient initially presented April 2023 with elevated PSA and prostate biopsy demonstrating Brenden 6 adenocarcinoma in 2 cores. (Left lateral base and left base) He was placed on active surveillance. PSA 11/30/2023 was 4.22. He underwent repeat prostate biopsy on 05/01/2024 with the finding of adenocarcinoma, Brenden 6 (3+3) from left lateral base, left base, left, left mid, left apical cores. (6/16 cores involoved) Staging Studies: None Previous Treatment for Prostate Cancer: None Genomic Testing: None The patient reports the following pertinent history: Urinary frequency (D/N): 4-6/1-2 Dysuria: No Incontinence: 1- No pads Hematuria: No - Total AUA Score: Were doing on his Bowel Movement Frequency: 1/day Bowel Movement Quality: Normal Blood per Rectum: No Last Colonoscopy: na Baseline Erectile Function: 5- No erections Androgen Deprivation: none Prior Radiation Therapy, Collagen Vascular Disease, or Inflammatory Bowel Disease: No Any implanted or external electric devices? No Currently on Anticoagulation: No History of Hip Replacement: No History of Prior TURP: No ALLERGIES No Known Allergies aspirin, enteric coated (ASPIRIN, ENTERIC COATED) 81 mg EC tablet TAKE 1 TABLET (81 MG) BY MOUTH IN THE MORNING Benzonatate 200 mg capsule take 1 capsule by mouth 3 times a day as needed for cough budesonide-formotero l (SYMBICORT) 160-4.5 mcg/actuation inhaler INHALE 2 PUFFS INTO THE LUNGS TWICE A DAY FOR 90 DAYS *RINSE MOUTH AFTER USE* RESTASIS 0.05 % ophthalmic emulsion APPLY ONE DROP IN BOTH EYES 2 TIMES A DAY. dilTIAZem XR (DILACOR XR) 180 mg 24 hr capsule Take 180 mg by mouth once daily. guaiFENesin (MUCINEX) 600 mg 12 hr tablet Take 1,[address] (PROTONIX) 40 mg tablet Take 40 mg by mouth. roflumilast (DALIRESP) 500 mcg tab Take 500 mcg by mouth once daily. tiotropium (SPIRIVA WITH HANDIHALER) 18 mcg inhalation capsule Inhale 18 mcg as instructed once daily. ALBUTEROL SULFATE (PROVENTIL HFA INHALATION) Inhale as instructed. IBUPROFEN (ADVIL ORAL) Take by mouth. fluticasone-salmeter ol (ADVAIR DISKUS) 250-50 mcg/dose DsDv Inhale 1 Puff as instructed twice daily. doxycycline 100 mg tablet Take 1 tablet by mouth twice daily. predniSONE 20 mg tablet Take 2 pills daily x 3 days PAST MEDICAL HISTORY Diagnosis Date Atrial fibrillation (HCC) COPD (chronic obstructive pulmonary disease) (HCC) Emphysema of lung (HCC) GERD (gastroesophageal reflux disease) PAST SURGICAL HISTORY Procedure Laterality Date ELBOW Left 1967 FOOT RIGHT OP SURGERY REVISE MEDIAN N/CARPAL TUNNEL SURG Left TOTAL HIP REPLACEMENT Bilateral FAMILY HISTORY Problem Relation Age of Onset COPD Father Social History Tobacco Use Smoking status: Former Packs/day: 2.50 Years: 37.00 Additional pack years: 0.00 Total pack years: 92.50 Types: Cigarettes Quit date: 2016 Years since quittin.5 Smokeless tobacco: Never Vaping Use Vaping Use: Never used Substance Use Topics Alcohol use: Not Currently Comment: quit 2016 Drug use: Not Currently Frequency: 2.0 times per week Types: Marijuana REVIEW OF SYSTEMS: GENERAL: feeling well without fatigue, no recent change in weight NECK: denies swelling or pain in neck RESPIRATORY: chronic lung disease under good control with current medication CARDIOVASCULAR: no chest pain, no palpitations MUSCULOSKELETAL: denies any painful or swollen joints, no muscle aches (more content not included)... Normal [facility] CNOVon 06-01-2024 CNOV Office Visit (UROLMN) JINNYMATEO Payan ([id number]) 1960 M Date Time Provider Department 06/01/24 1:45 PM AMANDEEP CRISOSTOMO UROADYN During your visit today, we recorded the following information about you: Pulse Blood pressure Weight Height 88/minute 138/81 68 kg 1.753 m Amandeep Crisostomo MD 06/24/2024 4:18 PM Signed Referring Provider: Chief Complaint: Recently diagnosed CaP HPI: 63 year old male from [place], [place] with a PMHx of COPD (40 pack-year smoker), Afib (on ASA), and GERD diagnosed with CAP in 05/20 which showed 2 cores of Franklin 6 disease. He has sever COPD with shortness of breath on exertion and O2 saturation in high 80s. He was started on . In , his PSA was 4.22 and his urology decided to repeat a biopsy with 8/18 cores positive for Brenden 6 disease. Past surgical Hx: total hip replacement, denies any abdominal surgeries History: Voiding history: wakes up 3-4x a night, strong stream, denies any gross hematuria No longer sexually active and does not really have erections Family History of Genitourinary Cancer: Unsure REVIEW OF SYSTEMS GENERAL:No weight loss, malaise or fevers., SEE HPI HEENT:Negative for frequent or significant headaches, No changes in hearing or vision, no nose bleeds or other nasal problems RESPIRATORY: Severe COPD, Wheezing, Shortness of breath CARDIOVASCULAR: Negative for chest pain, leg swelling or palpitations. GASTROINTESTINAL: Negative for abdominal discomfort, blood in stools or black stools or change in bowel habits GENITOURINARY: No history of dysuria, frequency or incontinence MUSCULOSKELETAL: Negative for joint pain or swelling, back pain or muscle pain. NEUROLOGIC:Negative for focal numbness or weakness, headaches and dizziness or syncope. HEMATOLOGIC/LYMPHATI C/IMMUNOLOGIC:Negati ve for prolonged bleeding, bruising easily or swollen nodes. ENDOCRINE: Negative for cold or heat intolerance, polyuria, polydipsia and goiter. The remainder of the ROS was negative. HISTORIES PAST MEDICAL HISTORY Diagnosis Date COPD (chronic obstructive pulmonary disease) Current Outpatient Medications Medication Sig RESTASIS 0.05 % ophthalmic emulsion APPLY ONE DROP IN BOTH EYES 2 TIMES A DAY. pantoprazole DR (PROTONIX) 40 mg tablet Take 40 mg by mouth. aspirin, enteric coated (ASPIRIN, ENTERIC COATED) 81 mg EC tablet TAKE 1 TABLET (81 MG) BY MOUTH IN THE MORNING Benzonatate 200 mg capsule take 1 capsule by mouth 3 times a day as needed for cough budesonide-formotero l (SYMBICORT) 160-4.5 mcg/actuation inhaler INHALE 2 PUFFS INTO THE LUNGS TWICE A DAY FOR 90 DAYS *RINSE MOUTH AFTER USE* dilTIAZem XR (DILACOR XR) 180 mg 24 hr capsule Take 180 mg by mouth once daily. guaiFENesin (MUCINEX) 600 mg 12 hr tablet Take 1,200 mg by mouth. roflumilast (DALIRESP) 500 mcg tab Take 500 mcg by mouth once daily. tiotropium (SPIRIVA WITH HANDIHALER) 18 mcg inhalation capsule Inhale 18 mcg as instructed once daily. ALBUTEROL SULFATE (PROVENTIL HFA INHALATION) Inhale as instructed. IBUPROFEN (ADVIL ORAL) Take by mouth. fluticasone-salmeter ol (ADVAIR DISKUS) 250-50 mcg/dose DsDv Inhale 1 Puff as instructed twice daily. doxycycline 100 mg tablet Take 1 tablet by mouth twice daily. predniSONE 20 mg tablet Take 2 pills daily x 3 days No current facility-administere d medications for this visit. FAMILY HISTORY Problem Relation Age of Onset COPD Father Cancer Maternal Grandmother Cancer Maternal Grandfather Cancer Paternal Grandmother Cancer Paternal Grandfather SOCIAL HISTORY Social History Tobacco Use Smoking status: Every Day Packs/day: 2.50 Years: 37.00 Additional pack years: 0.00 Total pack years: 92.50 Types: Cigarettes Smokeless tobacco: Never Substance Use Topics Alcohol use: Yes Drug use: Yes Frequency: 2.0 times per week Types: Marijuana PHYSICAL EXAMINATION General appearance: Well appearing, alert, in no acute distress, and well-hydrated, well nourished Back: no pain to palpation over spine or costovertebral angles, reflexes are 2+ and symmetric, motor and sensory appear to be normal Lungs: Positive findings: wheezing Heart: Not examined Abdomen: Normal abdominal exam, Abdomen soft, non-tender. Bowel sounds normal. No masses, organomegaly Extremities: Extremities normal. No deformities, edema, or skin discoloration. Good capillary refill. Musculoskeletal: Spine range of motion normal. Muscular strength intact, No joint swelling, deformity, or tenderness Genitourinary: Deferred LABS PSA 12/21: 4.22 IMAGING No imaging to review Assessment 63 year old male from [place], [place] with a PMHx of COPD (40 pack-year smoker and poor oxygenation status), Afib (on ASA), and GERD diagnosed with CAP in 05/20 which showed 2 cores of Franklin 6 disease. Recently had more + cores on a repeat biopsy and is here (more content not included)... Normal [facility] URINALYSIS, REFLEX MICROSCOP ICon 06-01-2024 Bilirubin Ql (U) Negative Negative [facility] Clarity (Unsp spec) Clear Clear [facility] Color (U) Yellow Yellow [facility] Glucose Test strip (U) [Mass/Vol] Negative Negative [facility] Hemoglobin Ql (U) Negative Negative [facility] Interpretation and review of laboratory results Normal [facility] Ketones Ql (U) Negative Negative [facility] Leukocyte esterase Test strip Ql (U) Negative Negative [facility] Nitrite Ql (U) Negative Negative [facility] pH (U) 5.5 [pH] NINF - 8.5 [facility] Protein (U) [Mass/Vol] Negative Negative [facility] Specific gravity (U) [Rel density] 1.009 1.005 - 1.030 [facility] Urobilinogen Ql (U) 0.2 EU/dL 0.2-1.0 EU/dL [facility] This test was developed and its performance characteristics determined by [facility]'s Amandeep Meza [facility] Issue ([facility] It has not been cleared or approved by the FDA. [facility] is regulated under CLIA as qualified to perform high-complexity testing. This test is used for clinical purposes. It should not be regarded as investigational or for research. [facility] Bilirubin Ql (U) Negative Normal Negative [facility] Comment on above: Order Comment: Speci men Type: URINE SPECIMEN Ordering Facility: [facility] Address: [address] [place] [address] Performed By: #### L [id number] #### [facility] CLIA [id number] [address] [place] [address] [place] Clarity (Unsp spec) Clear Normal Clear [facility] Comment on above: Order Comment: Speci men Type: URINE SPECIMEN Ordering Facility: [facility] Address: [address] [place] [address] Performed By: #### L [id number] #### [facility] CLIA [id number] [address] [place] [address] [place] Color (U) Yellow Normal Yellow [facility] Comment on above: Order Comment: Speci men Type: URINE SPECIMEN Ordering Facility: [facility] Address: [address] [place] [address] Performed By: #### L [id number] #### [facility] CLIA [id number] [address] [place] [address] [place] Glucose Test strip (U) [Mass/Vol] Negative Normal Negative [facility] Comment on above: Order Comment: Speci men Type: URINE SPECIMEN Ordering Facility: [facility] Address: [address] [place] [address] Performed By: #### L [id number] #### [facility] CLIA [id number] [address] [place] [address] [place] Hemoglobin Ql (U) Negative Normal Negative [facility] Comment on above: Order Comment: Speci men Type: URINE SPECIMEN Ordering Facility: [facility] Address: [address] [place] [address] Performed By: #### L [id number] #### [facility] CLIA [id number] [address] [place] [address] [place] Ketones Ql (U) Negative Normal Negative [facility] Comment on above: Order Comment: Speci men Type: URINE SPECIMEN Ordering Facility: [facility] Address: [address] [place] [address] Performed By: #### L [id number] #### [facility] CLIA [id number] [address] [place] [address] [place] Leukocyte esterase Test strip Ql (U) Negative Normal Negative [facility] Comment on above: Order Comment: Speci men Type: URINE SPECIMEN Ordering Facility: [facility] Address: [address] [place] [address] Performed By: #### L [id number] #### [facility] CLIA [id number] [address] [place] [address] [place] Nitrite Ql (U) Negative Normal Negative [facility] Comment on above: Order Comment: Speci men Type: URINE SPECIMEN Ordering Facility: [facility] Address: [address] [place] [address] Performed By: #### L [id number] #### [facility] CLIA [id number] [address] [place] [address] [place] pH (U) 5.5 [pH] Normal <8.5 [facility] Comment on above: Order Comment: Speci men Type: URINE SPECIMEN Ordering Facility: [facility] Address: [address] [place] [address] Performed By: #### L [id number] #### [facility] CLIA [id number] [address] [place] [address] [place] Protein (U) [Mass/Vol] Negative Normal Negative [facility] Comment on above: Order Comment: Speci men Type: URINE SPECIMEN Ordering Facility: [facility] Address: [address] [place] [address] Performed By: #### L [id number] #### [facility] CLIA [id number] [address] [place] [address] [place] Specific gravity (U) [Rel density] 1.009 Normal 1.005-1.030 [facility] Comment on above: Order Comment: Speci men Type: URINE SPECIMEN Ordering Facility: [facility] Address: [address] [place] [address] Performed By: #### L [id number] #### [facility] CLIA [id number] [address] [place] [address] [place] Urobilinogen Ql (U) 0.2 EU/dL Normal 0.2-1.0 EU/dL [facility] Comment on above: Order Comment: Speci men Type: URINE SPECIMEN Ordering Facility: [facility] Address: [address] [place] [address] Performed By: #### L [id number] #### [facility] CLIA [id number] [address] [place] [address] [place] Ambulatory Visit Summaryon 0 05-21-2024 Ambulatory Visit Summary MATEO STEARNS :1960 Visit Date:05/21/2024 Ambulatory Visit Instructions Your Diagnosis Prostate cancer Sebaceous cyst Your Care Team Attending Physician - DIONY CHANDLER, Rufina Reina Primary Care Physician - KATHIE SÁNCHEZ CNP [...] Following Appointments Follow Up with DIONY CHANDLER, FLAQUITO Marcelino When: Where: [facility] [address], [place] [phone] Someone Will Contact You Regarding These Appointments [facility] External Ambulatory Referral, Other (needs to be [...] often, espec (more content not included)... Normal [facility] Patient Educationon 05-21-20 Patient Education Oncology Prostate [...] under a microscope. This is called the Franklin score and the total score can range [...] external be (more content not included)... Normal [facility] Urology Office/Clinic Noteon 05-21-2024 Urology Office/Clinic Note [...] of prostate cancer. S/p TRUS/bx 05/17/23 - Franklin score 6 (3+3) in 2 cores, each one is less than 10%. 2 HGPINs. S/p TRUS/bx 05/01/24 - Franklin 6 (3+3) in 9/12 cores. 30% core [...] Follow-up With When Contact Information DIONY CHANDLER, Rufina Reina, URL [facility] [address] [place] [phone] Additional Instructions: referral to [facility] to discuss prostatectomy Patient Education Prostate Cancer I, Vesta Cortes, personally scribed for Dr. aVldez on 05/21/2024 12:43:00. . Documentation recorded by the scribe, Vesta [...] Recorded zoste (more content not included)... Normal [facility] Comment on above: Result Comment: Elec tronically Signed By: Rufina VALDEZ MD\.br\Date and Time Signed: 05/21/24 12:44 EDT\.br\Electronically Co-Signed By: Vesta Cortes\.br\Date and Time Co-Signed: 05/21/24 12:43 EDT Coding Summary.on 05-17-2024 Coding Summary. LZQEPgyl63KOv4gNy+PG hlYWQ+JI3NFRCdC84ggB EfdV5zD9FELZpXUfupWJ XUJWwTLnEadeEkCU4emQ NjZXJu IC8+SD6zWPYrZptacEQn s5J6uTK9Q04bfb7bEWbd wBC6FWBnSmMmlfazx2bp nIn9BOlyQcnpTbWq YCFydQ61UIZ9lN75Ow80 uXYslQLos2cghQh4UkHo QWFiSPS0tChwEAypn2Ql GFCcM35maRZrj6O3 IGNvbGxhcHNlOyBlbXB0 iF1hGUorixood2qbavtc Unq1dn28lNStf9J8qUN3 L9JdxdB2LTOeyKVv PtvnsMDJvA0kqodxx1wj vdihVxBqUUEnPOt6KNj2 TAZthVmfItFjHX80HLT2 JJVeklEjG0WwGTPi hTjrVxA6v8S9Mh8CC2MR HnqxV4EEEHPKROpcjOR+ VC52lc13P1JgEpglVsh9 ETXmFTD0oSI8nM0n VXDrEYwvu2L4iPU0I6Js xmFogl8qj0cjGZHtIZss W75ftNBym7S6HIXxvOX7 HQMjiGtlYkWpuZ85 Oyc+TDTviEtup4HiXdev n0hsp0shqMr2PfpyZRPw tfVouRhdKHK7e0OlXo9d GXMazLG2kJT8pD6t BcEpTvG9UMkqD861HpWf jISmQdffG34tO3ZyfLM+ BPEwVvp1MRLitUxvOU6l N7CaFBSeztcpjOJu rIuaBO1wJHJvmwlgKMIr bU0nNMAxL0e2HqKsNdM5 WUyoA8AdXRDgnojqRx73 iI2rDePpXmB3UWox Z3LvjlT6MNChcXAzBCug QSB5Y05yk8O7AVYgUJYq UIW4wDN0aR3mpAycbgdl bGVmdDsgdmVydGlj ZGlxKSiaJ025RBRzaDdf PkNvZGluZyBEYXRlOiAg MDYvMjAvMjAyNDwvdGQ+ PUMyGKG6iEiwZKCm yPJaRAupUk0doXtlvKvp NH0eEGOlcwcjJIUqnD9i EKHfmWBhcIbpBX4aUJQv usnok202GhTeVQZ5 VLYofIOxR7TmcE8lZdKt AZJuQMMjD7EjuTEyYOel J175SDmzRsF8JMKfccFa E2CyFZPkkFlwZcY1 b2G2Um8Le6YudytyL3Sd hTVbInNjUnzzCMk3H7Mg PjwvdHI+ZM31VTGkYJ67 KUn7JEH5fQdiQWes FTFyN7XobE0xRtQhIRXl ZGRkOyc+PHRhYmxlIHdp ZHRoPScxMDAlJyBzdHls UB8wIe8zYTTqRQBx iEfhjSXkMsCxj8dyQASw ANdaMQ3dbQjrD0IgnYM5 OLElo9i0Kz19E55dP3Ug dXA+TDVgbBX3cLV7 pY3xSjUnGmH1AQfjF793 VeMjrOJlGdxly3nqz6oj vFc7RqD8YOJqheIolBpk BLJ7u9VdMk91U93w IHdpZHRoPSIxNSUiIHZh uVjtpi7fbS6pJn5+PGNv tEK1bPI5pG6pHaWnDzL1 JUpkX488MfAsaWVf Rldol1bty3vpnDb4KuZx QEClhkEasAhqKDC6b7Zm Gi57P9XkvZowk7XtMic0 vy34eCKud8P9gHJ2 B4KxJFWtrrougEJyxNpr ET1oDQZpkwpuBVYfhL9a ZKHcB9u0FkOaDtT8RQbl R3SerwR3QDRqgEHy ALTvrCSCfC8culwym8xv hveyQrFoZAJlUGg9AJd6 VOBnlDtnTpBqVXQ5PoX5 JNS7lSRsyO3yqUsk ttlgoK4qWmf+NMT3dAGc rPORSI4zOsxtiZG+PHRk XQD7eKmuQYltJLDesP3p OEMrQ6q4McOtBmX7 NPtpS6AmnuJ6USNqsSGi HHTmtXRGsU0smnaxq0di pxyhOlKbNANbQXv3OZy4 LWFsaWduOiBsZWZ0 HhG2IKJ7rEVzeZ0jhPje bbqndR0sGud+QmlydGgg NYF4FMs2S5WzBjb5QDXj kTpmMF3wpKSgUVkn Ig1vcRikbJoeIL6pMTLt iicka131AjDfu0ukKUEb dHNwOYnuCHY4P86cl0M6 ORZkCIIjJXM1gOM7 dR3hgSufgnbnxBOxiAsi ojQtoKrdJQtmYPuxG358 AXGpkTcyEjDeBLu3J1Rx Szc8VUNqyDnvDJ8a fLRkIHmbGq2rbSrjyFoe ZK5qHCVmunymt225GdQb o8euVTFwlFFuQWtyUCG7 P15fy8G2HPOgNHEh WCU9nPK7pW8gzAhsfogq bGVmdDsgdmVydGljYWwt IAewD686YHLskHwjMgUr eRj1U9FbQcy0JJJx aGbeRB5adTPdFDngDz7u dJwgiUcqUD6jMLFhzkfm r487XkVia3vfLGDhkNHq HPezGKR2U24ag7Q1 RQSnPDVrYDD2yOL1sM3h bGlnbjogbGVmdDsgdmVy gWqhTSxkXFxyB748BYOm cDsnPlBhdGllbnQg TGbjHKk9K0HuCwrulJW+ GC66SZDfWX95mNVvgXVa q2vrsGy5PcKuIWLxMOK4 nAouZIwxq4JwESPw P54dlNSwu4D9LYTtmMrz vOVgHcOztGE1cB6rPDti dlcbj2pbmuiwOeufk0zv kl71xT04B10bFSvd ZHRoPSIzMCUiIHZhbGln js3zdC7cXw7+PGNvbCB3 tHU4qP5zCXIrOuF8SDfk J490JmVdrKGqXevj u5iwx9untRs5ReV2GHCi epSgtYoqACW4y0QaXc94 U25vYXcyEWVkLHGbTRVq QIQjfUjswg2lqW2m Ii8+ATHqkDN7gNK2aU5i WnWmGjQ1UCsuQ172LaDl zIPpQkduQ71hB9IwwAE+ VPIeNfy3ZMOoqYot PQ2ypITbYYjyPz4rHBU8 LaHwNmAyCGcwM3SoKKCo ehyqohsyhVI9JEUhECKw wD71Wr9emXghRFKs gQXYzO9jqneyi7xttuxn BbUaQWJdFTj5PNk1ICUx uVnpPkEnCQW7DcQ8KBY5 nHRxdR4epWpkrhub kY1iV1EfHPGufsxfAs37 fS0rQlRfIiW9QTmhCkz+ BI7BXKymU9gRKESJT9OA RVIgVzwvdGQ+PHRk LIK6kIpzMPomUNAzmS6z HXNrF7s9OpLoWaH7QGhi M5GaVMPdpehkBf90vG3k IiHpGuE8HAioD5Gi thH0QTZexHJvJYynKRA8 D70mn3A9XLOtTKWlEGM4 vHF7kN8fsTznrbqaqQEb dDsgdmVydGljYWwt OOtkR995WMQmeMzhOiK9 RwN2GwA3ELn6I1WdTcn6 NBBiwJxiTQ4yzLRlGBxc Yv7vdKgmjOheQL5m GTJtrvrqHWCidH3oIMOy wSCaiLkxGO2eVMHqwztr g850ZwWbBQK5HZSqyKUq K0XpaJ4mXnIoGQYt DTEhZ7YltLNdLKnmU217 RNqeKzD2RIZzvbTbI2Rs TQTyuQxlBkC7a5F7Qi57 NSBZZWFyczwvdGQ+ WLKrIWU9qJbtJVdzVGUn uD5zIHZvL1j7CwNzXzU5 PUkgK7HyQDGgiiksTd82 kT3sZxXhCpK8JMyp H1WxvdE1VLGzgDWrTDxw DJY7P31il8U2LRUuMHWj QNL2rJN5uD4cdTotzson bGVmdDsgdmVydGlj QWslJOssN774OYLiyTom Xv2scZQ4C4IcHfc8BNYi yCfcDY6wgOUoEYnsRt5w zQfnhVkmPG8fUVHz cymzNEXdnT7kDUGkkOOp nTeuFO0yWZHqtunrv870 SvGhNLU1XCXmmFMwK5Ar xL2gQeWuNCNqSMMv H7WeqBWbPOhgF610IBvo OwH5SGGwctKiK4OrTCKv cHfjOvB7l0Y8Hu9ErJYh MZDuXD01SW77IZ29 R5KaQocpiEWoqMI+PHRh YmxlIHdpZHRoPScxMDAl KdIqlTklMS6xDh8cKBDk LWNvbGxhcHNlOiBj y7kmJBGnYPbtCQ4eiOai A5KfhET9MKDdf1p5Tq15 X42iO6WhzVE+PGNvbCB3 kMG9sJ4vJoShRzD6 ACawI842RqIkkRXlZawl h0kvx4izlXq2PtMuRHEu foHekVidOKK1d2JrQr87 Q59tBRgwKXAnHZWf LBRrHKQxrTctty3gsN2n Ii8+RUTisIG3iJG4yD8b RyNyFhL7BLesI813AuId pPSoAkzgM93oC7Mf dXA+QRVlZud3MUVmxSgu MN9fkHDsGTefNy7eEWP9 DeXbGuRgHXhqN3VwVMSg qvojaxjqeNK7ROBp MGQomE71Tq9ygGqcPu2x YLTuJSJ2FRKohEDiS6Vf cI8rUlRkKTUzETVnK5Uv oLGdRCkbK406HKjr WvS2GNWnmnZoZ0SnEQGx hSndHcL4k0I7Jm8CqMni qNTnOB9zMbXcZKs9R4Vv Ees1TJCbsJsrJJ6p lXYtBZopQh3kmKhejVkz OM2ySAHoeydqv484MkNn j3rvUNHfaPBoMUyfRFD1 W69jg1R0TVOsABIp YSP8gXK5lB8vmRsqqixj bGVmdDsgdmVydGljYWwt TLkhL080ZFHzxOdnIwOC Xen4S1NySvu6XKZj sSlkQV6ekHOrQKrrNh5i aPbguKkcZH4kTFLecope z395XsMev5ctJLUgiASi BLjrNCP0D57ml7O0 IFTcTUWfPWK1rFA3zN5l bGlnbjogbGVmdDsgdmVy yDjkAIvyGNszY976SHGh uYqzTa9YPpf9M9Iv Cfu7SFUvwCdjCK9szSYd ZCjlBl4baHfkhLttJA4i MCVrqiawi177NyNmc7gm IDEwcHQgVGltZXM7 F05xw3M3BQUtKNQrCRA6 fKY4jG6cmFjjofeqsMIx dDsgdmVydGljYWwtYWxp G518XVQfaSypUhRw eWVyOjwvdGQ+CD11mj82 P7XrKqlpJrk8SKAnYUO4 qCW2zA2pEMHhDEwde1U9 qUX1I3GjsyKkyq5p w1vaTFCeVWasH (more content not included)... Normal [facility] Prostate Histology ([facility]) on 05-16-2024 Prostate Histology Diagnosis Info Invalid Interpretation Code [facility] Comment on above: Order Comment: left base x 3 bites Left lateral mid x 3 bites Left apex x 4 bites Result Comment: A:Pr ostate,Left Lateral Base:Needle Biopsy Interpretation - - Acinar adenocarcinoma of prostate; Franklin score 6(3+3); Tumor measures 0.6 cm in length; 30% of the core involved by tumor; 1 of 1 core involved; Perineural invasion not identified. MicroScopic Description - B:Prostate,Left Base:Needle Biopsy Interpretation - - Benign prostatic tissue. MicroScopic Description - C:Prostate,Left Lateral Mid:Needle Biopsy Interpretation - - Acinar adenocarcinoma of prostate; Franklin score 6(3+3); Tumor measures 0.1 cm in length; 8% of the core involved by tumor; 1 of 1 core involved; Perineural invasion not identified. MicroScopic Description - D:Prostate,Left Mid:Needle Biopsy Interpretation - - Acinar adenocarcinoma of prostate; Franklin score 6(3+3); Tumor measures 0.1 cm in length; 6% of the core involved by tumor; 1 of 1 core involved; Perineural invasion not identified. MicroScopic Description - E:Prostate,Left Lateral [place]:Needle Biopsy Interpretation - - Atypical glands suspicious but not diagnostic for adenocarcinoma. MicroScopic Description - F:Prostate,Left [place]:Needle Biopsy Interpretation - - Benign prostatic tissue. MicroScopic Description - G:Prostate,Right Base:Needle Biopsy Interpretation - - Benign prostatic tissue. MicroScopic Description - H:Prostate,Right Lateral Base:Needle Biopsy Interpretation - - Benign prostatic tissue. MicroScopic Description - I:Prostate,Right Mid:Needle Biopsy Interpretation - - Benign prostatic tissue. MicroScopic Description - J:Prostate,Right Lateral Mid:Needle Biopsy Interpretation - - Benign prostatic tissue. MicroScopic Description - K:Prostate,Right [place]:Needle Biopsy Interpretation - - Benign prostatic tissue. MicroScopic Description - L:Prostate,Right Lateral [place]:Needle Biopsy Interpretation - - Benign prostatic tissue. MicroScopic Description - M:Prostate,Left Base:Needle Biopsy Interpretation - - Acinar adenocarcinoma of prostate; Brenden score 6(3+3); Tumor measures 0.2 cm in length; 9% of the core involved by tumor; 1 of 1 core involved; Perineural invasion not identified. MicroScopic Description - N:Prostate,Left Base:Needle Biopsy Interpretation - - Acinar adenocarcinoma of prostate; Brenden score 6(3+3); Tumor measures 0.4 cm in length; 16% of the core involved by tumor; 2 of 3 cores involved; Perineural invasion not identified. MicroScopic Description - O:Prostate,Left Lateral Mid:Needle Biopsy Interpretation - - Acinar adenocarcinoma of prostate; Franklin score 6(3+3); Tumor measures 0.1 cm in [...] invasion not identified. MicroScopic Description - Q:Prostate,Left [place]:Needle Biopsy Interpretation - - Acinar adenocarcinoma of prostate; Franklin score 6(3+3); Tumor measures 0.1 cm in length; 3% of the core involved by tumor; 1 of 2 cores involved; MicroScopic Description - R:Prostate,Left [place]:Needle Biopsy Interpretation - - Benign prostatic tissue. [...] on: 05/16/2024 11:46:32 Performed By: #### 1 [id number] #### [address] [address] Consent for Procedure/Surger yon 05-01-2024 Consent for Procedure/Surgery [id number] #1.00TIFF Normal [facility] Consent for Treatmenton Consent for Treatment [id number] #1.00TIFF Normal [facility] IntraOperative Documentson 0 05-01-2024 IntraOperative Documents [id number] #1.00TIFF Normal [facility] Main OR Intraoperative Recor don 05-01-2024 Main OR Intraoperative Record IntraOp Document Type FTURO Summary Primary Physician: Rufina VALDEZ MD Finalized Date/Time: 05/01/24 12:17:31 Pt. Name: MATEO STEARNS Nuha/Sex: 1960 Male Med Rec #: [id number] Physician: Rufina VALDEZ MD Financial #: [id number] Pt. Type: O Room/Bed: / Admit/Disch: 05/01/24 10:18:15 - Institution: Case Times FTURO Entry 1 Patient Times In Room 05/01/24 11:31:00 Out Room 05/01/24 12:03:00 Procedure Times Start 05/01/24 11:35:00 Stop 05/01/24 11:56:00 Anesthesia Times Last Modified By: Gila MCLEAN, Mara Whitlock 05/01/24 12:03:31 Case Attendance FTURO Entry 1 Entry 2 Entry 3 Case Attendee DIONY CHANDLER, Rufina Wong RN, Mara Chacon CST, Diana Whitlock Role Performed Surgeon - Primary Garage Door Service Technician - Primary Scrub - Primary Time In 05/01/24 11:31:00 05/01/24 11:31:00 05/01/24 11:31:00 Time Out 05/01/24 12:03:00 05/01/24 12:03:00 05/01/24 12:03:00 Procedure PROSTATE TRANSRECTAL PROSTATE TRANSRECTAL PROSTATE TRANSRECTAL ULTRASOUND WITH BIO(.) ULTRASOUND WITH BIO(.) ULTRASOUND WITH BIO(.) Comments Last Modified By: Gila MCLEAN, Mara Wong RN, Mara Wong RN, Mara Whitlock 05/01/24 Vanesa Whitlock 05/01/24 Vanesa P 05/01/24 12:03:31 12:03:31 12:03:31 Surgical Procedures FTURO Entry 1 Procedure Description Procedure PROSTATE TRANSRECTAL Modifiers . ULTRASOUND WITH BIOPSY Surgeon Description PROSTATE TRANSRECTAL ULTRASOUND WITH BIOPSY Primary Procedure Yes Primary Surgeon Rufina VALDEZ MD Start 05/01/24 11:35:00 Stop 05/01/24 [...] CANCER Outcomes Met? Yes Last Modified By: Mara Wong RN 05/01/24 11:40:52 Post-Care Text: The patient is [...] Position Verified Availability Equipment, Medication Time Out IDONY CHANDLER, Rufina Reina, Verified (If Participants Mara Wong RN Applicable) Oswaldo Corey CST, Diana Chaparro Time Out Complete 05/01/24 11:35:00 Allergies Reviewed? [...] By: Mara Wong RN 05/01/24 12:17 Normal [facility] Main OR Preoperative Recordo n 05-01-2024 Main OR Preoperative Record Holding Area Document Type FTURO Summary Primary Physician: Rufina VALDEZ MD Finalized Date/Time: 05/01/24 11:27:32 Pt. Name: MATEO STEARNS Schuyler Breen/Sex: 1960 Male Med Rec #: [id number] Physician: Rufina VALDEZ MD Financial #: [id number] Pt. Type: O Room/Bed: / Admit/Disch: 05/01/24 [...] RN, Ruthann 05/01/24 11:25 MICA Kimball RN, Kinjal 05/01/24 11:27 Normal [facility] Operative Reporton Operative Report Patient: MATEO STEARNS Age: 63 years Sex: Male : 1960 Associated Diagnoses: None Author: Rufina VALDEZ MD Procedure Operative Information Details: Date/ [...] evaluation, 18 total biopsies were taken. Normal [facility] Comment on above: Result Comment: Elec jordinally Signed By: DIONY CHANDLER, Rufina Arrington\Date and Time Signed: 05/01/24 12:04 EDT Outpatient Surgery Discharge Instructionon 05-01-2024 Outpatient Surgery Discharge Instruction [id number] #1.00TIFF Normal [facility] Patient Educationon 05-01-20 Patient Education Custom Transrectal Ultrasound of the [...] for your post-operative appointment in 1-2 weeks [phone] or [phone] Normal [facility] Prostate Histology ([facility]) on 05-01-2024 PH Method of Extraction Needle Biopsy Normal [facility] Comment on above: Order Comment: left base x 3 bites Left lateral mid x 3 bites Left apex x 4 bites Performed By: #### 1 [id number] #### [facility] [address] [place] [address] PH Number of Jars 3 Invalid Interpretation Code [facility] Comment on above: Order Comment: left base x 3 bites Left lateral mid x 3 bites Left apex x 4 bites Performed By: #### 1 [id number] #### [facility] [address] [place] [address] PH Specimen 1 L Apx Prostate Normal [facility] Comment on above: Order Comment: left base x 3 bites Left lateral mid x 3 bites Left apex x 4 bites Performed By: #### 1 [id number] #### [facility] [address] [place] [address] PH Specimen 10 R Lat Bse Prost Normal [facility] Comment on above: Order Comment: left base x 3 bites Left lateral mid x 3 bites Left apex x 4 bites Performed By: #### 1 [id number] #### [facility] [address] [place] [address] PH Specimen 11 R Lat Mid Prost Normal [facility] Comment on above: Order Comment: left base x 3 bites Left lateral mid x 3 bites Left apex x 4 bites Performed By: #### 1 [id number] #### [facility] [address] [place] [address] PH Specimen 12 R Lat Apx Prost Normal [facility] Comment on above: Order Comment: left base x 3 bites Left lateral mid x 3 bites Left apex x 4 bites Performed By: #### 1 [id number] #### [facility] [address] [place] [address] PH Specimen 2 L Base Prostate Normal [facility] Comment on above: Order Comment: left base x 3 bites Left lateral mid x 3 bites Left apex x 4 bites Performed By: #### 1 [id number] #### [facility] [address] [place] [address] PH Specimen 3 L Lat Apx Prost Normal [facility] Comment on above: Order Comment: left base x 3 bites Left lateral mid x 3 bites Left apex x 4 bites Performed By: #### 1 [id number] #### [facility] [address] [place] [address] PH Specimen 4 L Lat Bse Prost Normal [facility] Comment on above: Order Comment: left base x 3 bites Left lateral mid x 3 bites Left apex x 4 bites Performed By: #### 1 [id number] #### [facility] [address] [place] [address] PH Specimen 5 L Lat Mid Prost Normal [facility] Comment on above: Order Comment: left base x 3 bites Left lateral mid x 3 bites Left apex x 4 bites Performed By: #### 1 [id number] #### [facility] [address] [place] [address] PH Specimen 6 L Mid Prostate Normal [facility] Comment on above: Order Comment: left base x 3 bites Left lateral mid x 3 bites Left apex x 4 bites Performed By: #### 1 [id number] #### [facility] [address] [place] [address] PH Specimen 7 R Apx Prostate Normal [facility] Comment on above: Order Comment: left base x 3 bites Left lateral mid x 3 bites Left apex x 4 bites Performed By: #### 1 [id number] #### [facility] [address] [place] [address] PH Specimen 8 R Base Prostate Normal [facility] Comment on above: Order Comment: left base x 3 bites Left lateral mid x 3 bites Left apex x 4 bites Performed By: #### 1 [id number] #### [facility] [address] [place] [address] PH Specimen 9 R Mid Prostate Normal [facility] Comment on above: Order Comment: left base x 3 bites Left lateral mid x 3 bites Left apex x 4 bites Performed By: #### 1 [id number] #### [facility] [address] [place] [address] PH Type of Service Technical Only Normal [facility] Comment on above: Order Comment: left base x 3 bites Left lateral mid x 3 bites Left apex x 4 bites Performed By: #### 1 [id number] #### [facility] [address] [place] [address] Patient Educationon 01-02-20 Patient Education Oncology Transrectal [...] near your rectum, especially while sitting. ? [place]-colored urine due to small amounts of blood in your urine. ? A burning feeling while urinating. ? Blood in your stool (feces) or bleeding from your rectum. ? Blood in your semen. Follow these instructions at home: Medicines ? Take egkv-rpe-dguyyje and prescription medicines only as told by [...] provider. Document Revised: 05/10/2022 Document Reviewed: 05/10/2022 [employer] Patient Education ? 2022 [email or web address]. Transrectal Ultrasound-Guided Prostate Biopsy A transrectal ultrasound-guided [...] including vitamins, herbs, eye drops, creams, and wtej-osk-drdratp medicines. ? Any problems you or family [...] as aspirin (more content not included)... Normal [facility] Office/Clinic Noteon 01-02-2024 Urology Office/Clinic Note [...] Follow-up With When Contact Information DIONY CHANDLER, Rufina Reina, URL [facility] [address] [place] [phone] Additional Instructions: sched repeat TRUS/bx Patient Education [...] Father. I (more content not included)... Normal [facility] Comment on above: Result Comment: Elec tronically Signed By: Rufina VALDEZ MD\.br\Date and Time Signed: 01/02/24 13:53 EST\.br\Electronically Co-Signed By: Vesta Cortes\.br\Date and Time Co-Signed: 01/02/24 13:52 EST Lab Reportson 12-01-2023 Lab Reports [id number] [facility] Ambulatory Visit Summaryon 0 06-06-2023 Ambulatory Visit Summary MATEO STEARNS :1960 Visit Date:06/06/2023 Ambulatory Visit Instructions Your Diagnosis Prostate cancer Sebaceous cyst Tests Performed Urnls Dip Stick Auto w/o Microscopy POC 68560 Your Care Team Attending Physician - Rufina VALDEZ MD Primary Care Physician - KATHIE [...] Tuesday 10:45 AM EST With: DIONY CHANDLER, Rufina Reina Where: [facility] [...] under a microscope. This is called the Franklin score and the total score can range [...] external be (more content not included)... Normal [facility] Urology Office/Clinic Noteon 06-06-2023 Urology Office/Clinic [...] Follow-up With When Contact Information DIONY CHANDLER, Rufina Reina, URL In 6 months [facility] [address], [place] [address] [phone] Additional Instructions: PSA and ANNE-MARIE Patient Education [...] Cigarettes, 02/07/2023 (more content not included)... Normal [facility] Comment on above: Result Comment: Elec tronically Signed By: Rufina VALDEZ MD\.br\Date and Time Signed: 06/06/23 11:52 EDT\.br\Electronically Co-Signed By: Vesta Cortes\.br\Date and Time Co-Signed: 06/06/23 11:47 EDT PSA, FREE AND TOTAL RATIOon 04-13-2023 % Free PSA 12.1 % Normal [facility] Comment on above: Result Comment: The [...] men. Performed By: #### H ISTGAL #### [facility] [address] [address] [address] James Crowley Prostate specific Ag [Mass/Vol] 3.4 ng/mL Normal 0.0-4.0 [facility] Comment on above: Result Comment: Rosa Elena DESHPANDE methodology. . According to the [place] [employer], Serum PSA should decrease and [...] disease. Performed By: #### H ISTGAL #### [facility] [address] [address] [address] James Crowley PSA, Free 0.41 ng/mL Normal N/A [facility] Comment on above: Result Comment: Rosa Elena DESHPANDE methodology. Performed By: #### H ISTGAL #### [facility] [address] [place] [address] Dr. James Crowley CBC AUTO DIFFon 04-08-2023 BASO # 0.1 103/ul Normal 0.0-0.1 [facility] Comment on above: Performed By: #### C BC #### [facility] [address] [place] [address] Dr. James Crowley Basophils/100 WBC (Bld) 0.5 % Normal 0.2-2.0 [facility] Comment on above: Performed By: #### C BC #### [facility] [address] [place] [address] Dr. James Crowley EO # 0.1 103/ul Normal 0.0-0.7 [facility] Comment on above: Performed By: #### C BC #### [facility] [address] [place] [address] Dr. James Crowley Eosinophils/100 WBC (Bld) 1.3 % Normal 0.9-7.0 [facility] Comment on above: Performed By: #### C BC #### [facility] [address] [place] [address] Dr. James Crowley Erythrocyte distribution width (RBC) [Ratio] 13.5 % Normal 11.0-15.0 [facility] Comment on above: Performed By: #### C BC #### [facility] [address] [place] [address] Dr. James Crowley Hematocrit (Bld) [Volume fraction] 48.4 % Normal 42.0-54.0 [facility] Comment on above: Performed By: #### C BC #### [facility] [address] [place] [address] Dr. James Crowley Hemoglobin (Bld) [Mass/Vol] 15.6 g/dL Normal 14.0-18.0 [facility] Comment on above: Performed By: #### C BC #### [facility] [address] [place] [address] Dr. James Crowley IG # 0.08 10e3/ul Critically high 0.00-0.03 [facility] Comment on above: Performed By: #### C BC #### [facility] [address] [place] [address] Dr. James Crowley IG % 0.8 % Critically high 0.0-0.5 [facility] Comment on above: Performed By: #### C BC #### [facility] [address] [place] [address] Dr. James Crowley LYMPH # 3.1 103/ul Normal 1.2-3.8 [facility] Comment on above: Performed By: #### C BC #### [facility] [address] [place] [address] Dr. James Crowley Lymphocytes/100 WBC (Bld) 29.8 % Normal 20.5-60.0 [facility] Comment on above: Performed By: #### C BC #### [facility] [address] [place] [address] Dr. James Crowley MANUAL DIFF REQ NO Normal [facility] Comment on above: Performed By: #### C BC #### [facility] [address] [place] [address] Dr. James Crowley MCH (RBC) [Entitic mass] 29.3 pg Normal 25.9-34.0 [facility] Comment on above: Performed By: #### C BC #### [facility] [address] [place] [address] Dr. James Crowley MCHC (RBC) [Mass/Vol] 32.2 g/dL Normal 29.9-35.2 [facility] Comment on above: Performed By: #### C BC #### [facility] [address] [place] [address] Dr. James Crowley MCV (RBC) [Entitic vol] 90.8 fL Normal 80.0-94.0 [facility] Comment on above: Performed By: #### C BC #### [facility] [address] [place] [address] Dr. James Crowley MONO # 0.6 103/ul Normal 0.3-0.8 [facility] Comment on above: Performed By: #### C BC #### [facility] [address] [address] [address] James Crowley Monocytes/100 WBC (Bld) 5.9 % Normal 1.7-12.0 [facility] Comment on above: Performed By: #### C BC #### [facility] [address] [address] [address] James Crowley NEUT # 6.4 103/ul Normal 1.4-6.5 [facility] Comment on above: Performed By: #### C BC #### [facility] [address] [address] [address] James Crowley Neutrophils/100 WBC (Bld) 61.7 % Normal 43.0-75.0 [facility] Comment on above: Performed By: #### C BC #### [facility] [address] [place] [address] Dr. James Crowley Platelet mean volume (Bld) [Entitic vol] 9.1 fL Critically low 9.5-13.5 [facility] Comment on above: Performed By: #### C BC #### [facility] [address] [place] [address] Dr. James Crowley PLT 320 103/ul Normal 150-450 [facility] Comment on above: Performed By: #### C BC #### [facility] [address] [place] [address] Dr. James Crowley RBC 5.33 106/ul Normal 4.70-6.10 [facility] Comment on above: Performed By: #### C BC #### [facility] [address] [place] [address] Dr. James Crowley WBC 10.4 103/ul Normal 4.0-11.0 [facility] Comment on above: Performed By: #### C BC #### [facility] [address] [place] [address] CHEST W CONon [...] by: LEONOR MA Date: 2023-04-08 10:41 Normal [facility] LIPID PROFILEon 04-08-2023 CHOL-HDL RATIO NORM SEE BELOW Normal [facility] Comment on above: Result Comment: 3.3 - 4.4 LOW RISK 4.4 - 7.1 AVERAGE RISK 7.1 - 11.0 MODERATE RISK >11.0 HIGH RISK Performed By: #### U NEO, LIPID #### [facility] [address] [address] [address] James Crowley Cholesterol [Mass/Vol] 204 mg/dL Critically high <=200 [facility] Comment on above: Performed By: #### U NEO, LIPID #### [facility] [address] [address] [address] James Crowley Cholesterol in HDL [Mass/Vol] 55 mg/dL Normal 40-60 [facility] Comment on above: Performed By: #### U NEO, LIPID #### [facility] [address] [address] [address] James Crowley Cholesterol in LDL [Mass/Vol] 115.2 mg/dL Normal [facility] Comment on above: Performed By: #### U NEO, LIPID #### [facility] [address] [address] [address] James Crowley Cholesterol.total/C holesterol in HDL [Mass ratio] 3.7 {ratio} Normal [facility] Comment on above: Performed By: #### U NEO, LIPID #### [facility] [address] [address] [address] James Crowley HDL NORMAL > or = 60 mg/dl - LOW CARDIOVASCULAR RISK <40 mg/dl - HIGH CARDIOVASCULAR RISK Normal [facility] Comment on above: Performed By: #### U NEO, LIPID #### [facility] [address] [address] [address] James Crowley LDL CALC NORMAL SEE BELOW Normal [facility] Comment on above: Result Comment: <100 mg/dl OPTIMAL 100 - 129 mg/dl NEAR OR ABOVE OPTIMAL 130 - 159 mg/dl BORDERLINE HIGH 160 - 189 mg/dl HIGH >190 mg/dl VERY HIGH Performed By: #### U NEO, LIPID #### [facility] [address] [address] [address] James Crowley Triglyceride [Mass/Vol] 169 mg/dL Critically high <=150 [facility] Comment on above: Performed By: #### U NEO, LIPID #### [facility] [address] [address] [address] James Crowley VLDL CALC 33.8 mg/dL Normal [facility] Comment on above: Performed By: #### U NEO, LIPID #### [facility] [address] [address] [address] James Crowley PROF 14(COMP METB)on 023 Albumin [Mass/Vol] 3.7 g/dL Normal 3.4-5.0 [facility] Comment on above: Performed By: #### U NEO, LIPID #### [facility] [address] [address] [address] James Crowley Albumin/Globulin [Mass ratio] 0.9 {ratio} Normal [facility] Comment on above: Performed By: #### U NEO, LIPID #### [facility] [address] [address] [address] James Crowley ALP [Catalytic activity/Vol] 86 U/L Normal 46-116 [facility] Comment on above: Performed By: #### U NEO, LIPID #### [facility] [address] [address] [address] James Crowley ALT [Catalytic activity/Vol] 33 U/L Normal 16-63 [facility] Comment on above: Performed By: #### U NEO, LIPID #### [facility] [address] [address] [address] James Crowley Anion gap [Moles/Vol] 14.8 mmol/L Normal [facility] Comment on above: Performed By: #### U NEO, LIPID #### [facility] [address] [address] [address] James Crowley AST [Catalytic activity/Vol] 16 U/L Normal 15-37 [facility] Comment on above: Performed By: #### U NEO, LIPID #### [facility] [address] [address] [address] James Crowley Bilirubin [Mass/Vol] 0.7 mg/dL Normal 0.2-1.0 [facility] Comment on above: Performed By: #### U NEO, LIPID #### [facility] [address] [address] [address] James Crowley Calcium [Mass/Vol] 9.1 mg/dL Normal 8.5-10.1 [facility] Comment on above: Performed By: #### U NEO, LIPID #### [facility] [address] [address] [address] James Crowley Chloride [Moles/Vol] 107 mmol/L Normal 98-107 [facility] Comment on above: Performed By: #### U NEO, LIPID #### [facility] [address] [address] [address] James Crowley CO2 [Moles/Vol] 28.0 mmol/L Normal 21.0-32.0 [facility] Comment on above: Performed By: #### U NEO, LIPID #### [facility] [address] [address] [address] James Crowley Creatinine [Mass/Vol] 1.10 mg/dL Normal 0.70-1.30 [facility] Comment on above: Performed By: #### U NEO, LIPID #### [facility] [address] [address] [address] James Crowley EGFR-AF [place] >60 Normal >=60 [facility] Comment on above: Performed By: #### U NEO, LIPID #### [facility] [address] [address] [address] James Crowley EGFR-NON AF [place] >60 Normal >=60 [facility] Comment on above: Performed By: #### U NEO, LIPID #### [facility] [address] [address] [address] James Crowley Globulin (S) [Mass/Vol] 3.9 g/dL Normal [facility] Comment on above: Performed By: #### U NEO, LIPID #### [facility] [address] [address] [address] James Crowley Glucose [Mass/Vol] 98 mg/dL Normal 74-106 [facility] Comment on above: Performed By: #### U NEO, LIPID #### [facility] [address] [address] [address] James Crowley Potassium [Moles/Vol] 3.8 mmol/L Normal 3.5-5.1 [facility] Comment on above: Performed By: #### U NEO, LIPID #### [facility] [address] [address] [address] James Crowley Protein [Mass/Vol] 7.6 g/dL Normal 6.4-8.2 [facility] Comment on above: Performed By: #### U NEO, LIPID #### [facility] [address] [address] [address] James Crowley Sodium [Moles/Vol] 146 mmol/L Critically high 136-[address] [facility] Comment on above: Performed By: #### U NEO, LIPID #### [facility] [address] [place], [place] [address] Dr. James Crowley Urea nitrogen [Mass/Vol] 18.0 mg/dL Normal 7.0-18.0 [facility] Comment on above: Performed By: #### U NEO, LIPID #### [facility] [address] [place], [place] [address] Dr. James Crowley Urea nitrogen/Creatinine [Mass ratio] 16.4 mg/mg Normal [facility] Comment on above: Performed By: #### U NEO, LIPID #### [facility] [address] [place], [place] [address] Dr. James Crowley URIC ACID SERUMon 04-08-2023 Urate [Mass/Vol] 6.7 mg/dL Normal 3.5-7.2 [facility] Comment on above: Performed By: #### U NEO, LIPID #### [facility] [address] [address] [address] CHEST WO CONon [...] LEONOR MA Date: 2023-01-04 10:52 Normal [facility] CT CHEST WO CONon 10-07-2022 CT CHEST [...] LEONOR MA Date: 2022-10-07 16:05 Normal [facility] ACID FAST SMEAR AND CXon Acid Fast Culture Negative Normal [facility] Comment on above: Result Comment: No a tomi fast bacilli isolated after 6 weeks. Performed By: #### U NEO, LIPID #### [facility] [address] [address] [address] James Crowley Acid Fast Smear Negative Normal [facility] Comment on above: Performed By: #### U NEO, LIPID #### [facility] [address] [address] [address] James Crowley [employer] Specimen Processing Concentration Normal [facility] Comment on above: Performed By: #### U NEO, LIPID #### [facility] [address] [address] [address] James Crowley FUNGAL AB QUANTITAIVE DOUBLE IMMUNODIFFUon 08-22-2022 Aspergillus flavus Negative Normal Neg:<1:1 [facility] Comment on above: Performed By: #### F UNGUYI #### [facility] [address] [address] [address] James Crowley Aspergillus fumigatus Negative Normal Neg:<1:1 [facility] Comment on above: Performed By: #### F UNGUYI #### [facility] [address] [address] [address] James Crowley Aspergillus niger Negative Normal Neg:<1:1 [facility] Comment on above: Performed By: #### F UNGUYI #### [facility] [address] [address] [address] James Crowley Blastomyces Negative Normal Neg:<1:1 [facility] Comment on above: Performed By: #### F UNGUYI #### [facility] [address] [address] [address] James Crowley COXSACKIE B VIRUS ANTIBODIES on 08-21-2022 [place] B-1 Ab Negative Normal Neg:<1:8 [facility] Comment on above: Performed By: #### C OXSBV #### [facility] [address] [address] [address] James Crowley [place] B-2 Ab Negative Normal Neg:<1:8 [facility] Comment on above: Performed By: #### C OXSBV #### [facility] [address] [address] [address] Yilan Crowley coxsackie B-3 Ab Negative Normal Neg:<1:8 [facility] Comment on above: Performed By: #### C OXSBV #### [facility] [address] [place] [address] Dr. James Crowley Coxsarembertoie B-4 Ab Negative Normal Neg:<1:8 [facility] Comment on above: Performed By: #### C OXSBV #### [facility] [address] [place] [address] Dr. James Crowley Coxsare[place]toie B-5 Ab Negative Normal Neg:<1:8 [facility] Comment on above: Performed By: #### C OXSBV #### [facility] [address] [place] [address] Dr. James Crowley Coxsaerinn B-6 Ab Negative Normal Neg:<1:8 [facility] Comment on above: Performed By: #### C OXSBV #### [facility] [address] [place] [address] Dr. James Crowley HISTOPLASMA CAP AB QUANT DID on 08-21-2022 Histoplasma Mycelial CF Ab. Negative Normal Neg:<1:2 [facility] Comment on above: Performed By: #### H ISTGAL #### [facility] [address] [place] [address] Dr. James Crowley Histoplasma Yeast CF Ab Negative Normal Neg:<1:2 [facility] Comment on above: Performed By: #### H ISTGAL #### [facility] [address] [place] [address] Dr. James Crowley [place] A VIRUS AB IGMon 0 08-20-2022 [place] A16 IgM Negative Normal Neg:<1:10 [facility] Comment on above: Performed By: #### C OXSIGM #### [facility] [address] [place] [address] Dr. James Crowley [place] A24 IgM Negative Normal Neg:<1:10 [facility] Comment on above: Performed By: #### C OXSIGM #### [facility] [address] [place] [address] Dr. James Crowley Coxsaer[place] A7 IgM Negative Normal Neg:<1:10 [facility] Comment on above: Performed By: #### C OXSIGM #### [facility] [address] [place] [address] Dr. James Altamiranosaerinn A9 IgM Negative Normal Neg:<1:10 [facility] Comment on above: Performed By: #### C OXSIGM #### [facility] [address] [place] [address] Dr. James Crowley HISTOPLASMA GALACTOMANNAN AG URINEon 08-20-2022 Histoplasma Gal'shwetha Ag <0.5 Normal <0.5 ng/mL [facility] Comment on above: Performed By: #### H ISTGAL #### [facility] [address] [place] [address] Dr. James Crowley QUANTIFERON TB GOLD PLUSon 0 08-20-2022 QuantiFERON Criteria Comment Normal [facility] Comment on above: Result Comment: Vick [...] test. Performed By: #### Q NTTB #### [facility] [address] [place] [address] Dr. James Crowley QuantiFERON Incubation Incubation performed. Normal [facility] Comment on above: Performed By: #### Q NTTB #### [facility] [address] [place] [address] Dr. James Crowley QuantiFERON Mitogen Value >10.00 Normal [facility] Comment on above: Performed By: #### Q NTTB #### [facility] [address] [place] [address] Dr. James Crowley QuantiFERON Nil Value 0.04 IU/mL Normal [facility] Comment on above: Performed By: #### Q NTTB #### [facility] [address] [place] [address] Dr. James Crowley QuantiFERON TB1 Ag Value 0.04 IU/mL Normal [facility] Comment on above: Performed By: #### Q NTTB #### [facility] [address] [place] [address] Dr. James Crowley QuantiFERON TB2 Ag Value 0.05 IU/mL Normal [facility] Comment on above: Performed By: #### Q NTTB #### [facility] [address] [address] [address] James Crowley QuantiFERON-TB Gold Plus Negative Normal Negative [facility] Comment on above: Result Comment: No r esponse to M tuberculosis antigens detected. Infection with M tuberculosis is unlikely, but high risk individuals should be considered for additional testing (ATS/IDSA/CDC Clinical Practice Guidelines, 2017). The reference range is an Antigen minus Nil result of <0.35 IU/mL. Chemiluminescence immunoassay methodology Performed By: #### Q NTTB #### [facility] [address] [place] [address] Dr. James Crowley CREATININEon 08-18-2022 Creatinine [Mass/Vol] 0.97 mg/dL Normal 0.70-1.30 [facility] Comment on above: Performed By: #### H ISTGAL #### [facility] [address] [place] [address] Dr. James Crowley EGFR-AF [place] >60 Normal >=60 [facility] Comment on above: Performed By: #### H ISTGAL #### [facility] [address] [place] [address] Dr. James Crowley EGFR-NON AF [place] >60 Normal >=60 [facility] Comment on above: Performed By: #### H ISTGAL #### [facility] [address] [place] [address] CHEST W CONon [...] LEONOR MA Date: 2022-08-18 10:27 Normal [facility] CULTURE SPUTUMon 08-18-2022 CULTURE SPUTUM Isolate 1 Haemophilus parainfluenzae Moderate growth of Normal [facility] Comment on above: Result Comment: Beta -Lactamase: Negative Performed By: #### H ISTGAL #### [facility] [address] [address] [address] James Crowley SPUTUM GRAM STAINon 08-18-20 22 COMMENTS Normal [facility] Comment on above: Performed By: #### H ISTGAL #### [facility] [address] [address] [address] James Crolwey DIPHTHEROIDS Normal [facility] Comment on above: Performed By: #### H ISTGAL #### [facility] [address] [address] [address] James Crowley EPITHELIALS <25 Normal [facility] Comment on above: Performed By: #### H ISTGAL #### [facility] [address] [address] [address] James Crowley FUNGAL ELEMENTS Normal [facility] Comment on above: Performed By: #### H ISTGAL #### [facility] [address] [address] [address] James Crowley GRAM NEG BACILLI Normal [facility] Comment on above: Performed By: #### H ISTGAL #### [facility] [address] [address] [address] James Crowley GRAM NEG DIPPLOCOCCI FEW Normal [facility] Comment on above: Performed By: #### H ISTGAL #### [facility] [address] [address] [address] James Crowley GRAM POS BACILLI Normal [facility] Comment on above: Performed By: #### H ISTGAL #### [facility] [address] [address] [address] James Crowley GRAM POSITIVE COCCI FEW Normal [facility] Comment on above: Performed By: #### H ISTGAL #### [facility] [address] [address] [address] James Crowley WBC (Bld) [#/Vol] 10*3/uL Normal [facility] Comment on above: Performed By: #### H ISTGAL #### [facility] [address] [address] [address] James Crowley XR RIBS RT PA [...] [place] CISNEROS Date: 2022-08-12 13:02 Normal [facility] Covid-19 PCR (CVDTBH)on SARS-CoV-2 (COVID-19) RNA SOURAV+probe Ql (Unsp spec) Not detected Normal NOT DETECTED [facility] Comment on above: Result Comment: When diagnostic [...] for this test is supported by the [place] of Health and Human Service's declaration that [...] longer be used). Performed By: #### C [facility] #### [facility] [address] [place] [address] Dr. James Rey 03-24-2021 L Specimen: [id number] Received: 03/24/21 Status: [place] Nix Num: [id number] Spec Type: Surgical Subm Dr: Bryan Quick MD Tissues: A Skin-Other than Cyst, tag, debridement or plastic repair (LT NASAL DORSUM) Procedures: HE Stain, Gross/Micro L4 Patient Age/Sex Location Account Attending Physician Mateo Stearns 60/M [place] [id number] Bryan Quick MD SPEC NUM: [id number] RECD: 03/24/21 STATUS: [place] NIX NUM: [id number] FRANCISCA: 03/24/21 [facility] DR: Bryan Quick MD ENTERED: 03/24/[address] [facility] [address]: MYAH TYPE: Surgical DEPT: S ORDERED: [...] microscopic findings support the above pathologic diagnosis. [id number] Specimen: [id number] Received: 03/24/21 Status: [place] Dinah Num: [id number] Spec Type: Surgical Subm Dr: Bryan Quick MD Tissues: A Skin-Other than Cyst, tag, debridement or plastic repair (LT NASAL DORSUM) Procedures: HE Stain, Gross/Micro L4 Patient: Mateo Stearns [id number] (Continued) Signed (signature on file) Cindy Garcia MD 03/25/21 7913 [facility] Vital Signs Date Time Vital Sign Value Performing Clinician Gregoryi ann marie 07-12-2024 13:06-0400 Body mass index (BMI) [Ratio] 23.41 kg/m2 NA Engeler MD Work Phone: [facility] 07-12-2024 13:06-0400 Body temperature 98.1 [degF] MEI French MD Work Phone: [facility] 07-12-2024 13:06-0400 Body weight 67.8 kg MEI French MD Work Phone: [facility] 07-12-2024 13:06-0400 Diastolic blood pressure 83 mm[Hg] MEI French MD Work Phone: [facility] 07-12-2024 13:06-0400 Heart rate 95 /min MEI French MD Work Phone: [facility] 07-12-2024 13:06-0400 Respiratory rate 18 /min MEI French MD Work Phone: [facility] 07-12-2024 13:06-0400 SaO2% (BldA) [Mass fraction] 95 % MEI French MD Work Phone: [facility] 07-12-2024 13:06-0400 Systolic blood pressure 157 mm[Hg] MEI French MD Work Phone: [facility] 06-21-2024 13:13-0400 Body height 170.2 cm MEI French MD Work Phone: [facility] 06-21-2024 13:13-0400 Body mass index (BMI) [Ratio] 23.41 kg/m2 MEI French MD Work Phone: [facility] 06-21-2024 13:13-0400 Body temperature 97.5 [degF] MEI French MD Work Phone: [facility] 06-21-2024 13:13-0400 Body weight 67.8 kg MEI French MD Work Phone: [facility] 06-21-2024 13:13-0400 Diastolic blood pressure 75 mm[Hg] MEI French MD Work Phone: [facility] 06-21-2024 13:13-0400 Heart rate 86 /min MEI French MD Work Phone: [facility] 06-21-2024 13:13-0400 Respiratory rate 20 /min MEI French MD Work Phone: [facility] 06-21-2024 13:13-0400 SaO2% (BldA) [Mass fraction] 95 % MEI French MD Work Phone: [facility] 06-21-2024 13:13-0400 Systolic blood pressure 124 mm[Hg] MEI French MD Work Phone: [facility] 06-01-2024 13:13-0400 Body height 175.3 cm Amandeep Crisostomo MD Work Phone: [facility] 06-01-2024 13:13-0400 Body mass index (BMI) [Ratio] 22.14 kg/m2 Amandeep Crisostomo MD Work Phone: [facility] 06-01-2024 13:13-0400 Body weight 68 kg Amandeep Crisostomo MD Work Phone: [facility] 06-01-2024 13:13-0400 Diastolic blood pressure 81 mm[Hg] Amandeep Crisostomo MD Work Phone: [facility] 06-01-2024 13:13-0400 Heart rate 88 /min Amandeep Crisostomo MD Work Phone: [facility] 06-01-2024 13:13-0400 Systolic blood pressure 138 mm[Hg] Amandeep Crisostomo MD Work Phone: [facility] 05-21-2024 11:35-0400 Blood Pressure Location Rufina VALDEZ [facility] 05-21-2024 11:35-0400 Body temperature 98.6 [degF] Rufina VALDEZ [facility] 05-21-2024 11:35-0400 Diastolic blood pressure 84 mm[Hg] Rufina VALDEZ [facility] 05-21-2024 11:35-0400 Heart rate 76 /min Rufina VALDEZ [facility] 05-21-2024 11:35-0400 Respiratory rate 16 /min Rufina VALDEZ [facility] 05-21-2024 11:35-0400 Systolic blood pressure 139 mm[Hg] Rufina VALDEZ [facility] 06-06-2023 10:36-0400 Blood Pressure Location Rufina VALDEZ [facility] 06-06-2023 10:36-0400 Diastolic blood pressure 76 mm[Hg] Rufina VALDEZ [facility] 06-06-2023 10:36-0400 Heart rate 72 /min Rufina VALDEZ [facility] 06-06-2023 10:36-0400 Respiratory rate 16 /min Rufina VALDEZ [facility] 06-06-2023 10:36-0400 Systolic blood pressure 130 mm[Hg] Rufina VALDEZ [facility] 02-07-2023 12:42-0400 Blood Pressure Location Rufina VALDEZ [facility] 02-07-2023 12:42-0400 Diastolic blood pressure 77 mm[Hg] Rufina VALDEZ [facility] 02-07-2023 12:42-0400 Heart rate 74 /min Rufina VALDEZ [facility] 02-07-2023 12:42-0400 Systolic blood pressure 138 mm[Hg] Rufina VALDEZ [facility] 05-17-2022 12:56-0400 Blood Pressure Location Rufina VALDEZ [facility] 05-17-2022 12:56-0400 Diastolic blood pressure 87 mm[Hg] Rufina VALDEZ [facility] 05-17-2022 12:56-0400 Heart rate 79 /min Rufina VALDEZ [facility] 05-17-2022 12:56-0400 Respiratory rate 16 /min Rufinamichelle VALDEZ [facility] 05-17-2022 12:56-0400 Systolic blood pressure 139 mm[Hg] Rufina VALDEZ [facility] Encounters Encounter Date Encounter Type Care Provider Facility Start: 07-12-2024 End: 07-12-2024 ambulatory Severo FRENCH Facility:[facility] Start: 07-12-2024 End: 07-12-2024 Patient encounter procedure Severo French MD Work Phone: Radiation Oncology Comment on above: Malignant neoplasm o f prostate (HCC) (Primary Dx) Start: 06-21-2024 End: 06-21-2024 ambulatory RUFINA VALDEZ Facility:[facility] Start: 06-21-2024 End: 06-21-2024 Patient encounter procedure Severo French MD Work Phone: Radiation Oncology Comment on above: Malignant neoplasm o f prostate (HCC) (Primary Dx) Start: 06-01-2024 End: 06-01-2024 ambulatory Amandeep Crisostomo MD Work Phone: Urology Start: 06-01-2024 End: 06-01-2024 Patient encounter procedure Amandeep Crisostomo MD Work Phone: Urology Comment on above: Prostate cancer (HCC ) (Primary Dx) Start: 05-21-2024 End: 05-21-2024 ambulatory Rufina VALDEZ Facility:[facility] Start: 05-21-2024 End: 05-21-2024 Patient encounter procedure Rufina VALDEZ [facility] Start: 05-01-2024 End: 05-01-2024 ambulatory Rufina VALDEZ Facility:[facility] Start: 05-01-2024 End: 05-01-2024 Patient encounter procedure Rufina VALDEZ [facility] Start: 02-28-2024 End: 02-28-2024 ambulatory KATHIE PURNIMA Not Available Start: 01-05-2024 Clinisync Result Encounter Generic External Data Provider [facility] External [facility] Unsolicited Start: 01-05-2024 Clinisync Result Encounter Generic External Data Provider [facility] External Department Unsolicited Start: 01-02-2024 End: 01-02-2024 ambulatory Rufina VALDEZ Facility:[facility] Start: 07-22-2023 ambulatory Rufina VALDEZ Facili ty:[facility] Start: 06-06-2023 End: 06-06-2023 ambulatory Rufina VALDEZ Facility:[facility] Start: 06-06-2023 End: 06-06-2023 Patient encounter procedure Rufina VALDEZ [facility] Start: 05-17-2023 End: 05-17-2023 Patient encounter procedure Rufina VALDEZ [facility] Start: 04-12-2023 End: 04-13-2023 ambulatory PROMISE SÁNCHEZ Facility:[facility] Start: 04-08-2023 End: 04-09-2023 ambulatory PROMISE SÁNCHEZ Facility:[facility] Start: 02-07-2023 End: 02-07-2023 Patient encounter procedure Rufina VALDEZ [facility] Start: 01-04-2023 End: 01-05-2023 ambulatory PROMISE 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 Facility:[facility] Start: 08-12-2022 End: 08-12-[address] ELSA RAE . Facility:[facility] Start: 07-20-2022 End: 08-11-2022 Pre-admission assessment Rufina VALDEZ [facility] Start: 05-17-2022 End: 06-16-2022 Pre-admission assessment Rufina VALDEZ [facility] Start: 05-17-2022 End: 05-17-2022 Patient encounter procedure Rufina VALDZE [facility] Start: 05-03-2022 End: 05-03-2022 ambulatory ROBERTO ALVES . 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 James Crowley Colonoscopy Rufina VALDEZ Procedure on foot Rufina LEON Repair of hip Rufina VALDEZ Comment on above: Both hips Both hips Transrectal needle b iopsy of prostate Rufina VALDEZ Plan of Treatment Date Care Activity Detail Author Start: 03-11-2031 Urine microalbumin profile DTaP,Tdap,Td Vaccine (2 - Td or Tdap) [facility] Start: 09-21-2024 End: 12-21-2024 Prostate specific Ag [Mass/volume] in Serum or Plasma PROSTATE-SPECIFIC ANTIGEN DIAGNOSTIC Lab Routine Malignant neoplasm of prostate (HCC) Expected: 09/21/2024, Expires: 12/21/2024 [facility] Work Phone: Comment on above: Expected: 09/21/2024 , Expires: 12/21/2024 Start: 09-11-2024 End: 09-11-2024 Patient encounter procedure 09/11/2024 1:45 PM EDT Office Visit Radiation Oncology [address] [place] [address] [place] [address] Severo French MD [address] [place] [address] [place] [address] 2 month rv [facility] Comment on above: 2 month rv Start: 07-29-2024 Influenza vaccination Influenza Vacc ine (#1) [facility] Start: 07-12-2024 End: 07-12-2024 Patient encounter procedure 07/12/2024 1:15 PM EDT Office Visit Radiation Oncology [address] [place] [address] [place] [address] Severo French MD [address] [place] [address] 3 week rv-Decipher results Rad[facility] Oncology Comment on above: 3 week rv-Decipher r esults Start: 06-01-2024 End: 08-31-2024 Prostate specific Ag [Mass/volume] in Serum or Plasma PROSTATE-SPECIFIC ANTIGEN DIAGNOSTIC Lab Routine Prostate cancer (HCC) Expected: 06/01/2024, Expires: 08/31/2024 [facility] Work Phone: Comment on above: Expected: 06/01/2024 , Expires: 08/31/2024 Start: 11-28-2023 Advance Directive Discussion Advance Directive Discussion [facility] Start: 11-28-2023 Behavioral Health Screening Behavioral Health Screening [facility] Start: 07-29-2023 Covid-19 Vaccine () Covid-19 Vaccine () [facility] Start: 07-29-2023 Influenza vaccination Influenza Vacc ine (#1) [facility] Start: 2023 Pneumococcal Vaccine : 65+ Years (1 - PCV) Pneumococcal Vaccine: 65+ Years (1 - PCV) [facility] Start: 2018 RSV Vaccine (1 - 1-d ose 60+ series) RSV Vaccine (1 - 1-dose 60+ series) [facility] Start: 2013 Prostate specific antigen measurement Prostate Cancer Screening Discussion [facility] Start: 2008 Screening for malign ant neoplasm of lung Lung Cancer Screening [facility] Start: 2003 Diabetes Screening Diabetes Screenin g [facility] Start: 2003 Screening for malign ant neoplasm of colon [facility] Start: 1993 Lipid panel Lipid Screening [facility] Start: 1988 Zoledronic acid therapy Alpha- 1 Antitrypsin Deficiency Screening [facility] Start: 1976 Annual PCP Team Custom Shoemaker sully Disease Visit Annual PCP Team Chronic Disease Visit [facility] Start: 1976 Anxiety Screening Anxiety Screening [facility] Start: 1976 Depression Screening Depression Scre ening [facility] Start: 1976 Hepatitis C screening Hepatitis C Sc reening [facility] Start: 1976 HIV screening HIV Screening [facility] Start: 1976 Spirometry Spirometry [facility] Start: 1964 Pneumococcal Vaccine : 65+ (1 of 2 - PCV) Pneumococcal Vaccine: 65+ (1 of 2 - PCV) [facility] Start: 1958 Abdominal aortic aneurysm screening Abdominal Aortic Aneurysm Screening [facility] Start: 1958 Medicare Annual Wellness (AWV) Medicare Annual Wellness (AWV) [facility] Start: 1958 Screening for malign ant neoplasm of colon [facility] BLOOD CULTURE 1 BLOOD CULTURE 1 Lab Routine 01/05/2024 4:58 PM EST [facility] BLOOD CULTURE 2 BLOOD CULTURE 2 Lab Routine 01/05/2024 5:04 PM EST [facility] End: 06-01-2025 Prostate specific Ag [Mass/volume] in Serum or Plasma PROSTATE-SPECIFIC ANTIGEN DIAGNOSTIC Lab Routine Prostate cancer (HCC) Every 6 months for 3 Occurrences starting 06/01/2024 until 06/01/2025 [facility] Comment on above: Every 6 months for 3 Occurrences starting 06/01/2024 until 06/01/2025 Immunizations Immunization Date Immunization Notes Care Provider Jenni dominguez 09-17-2023 zoster vaccine recombinant Rufina VALDEZ [facility] 07-04-2023 zoster vaccine recombinant Rufina VALDEZ [facility] 09-25-2022 SARS-CoV-2 (COVID-19 ) [id number] Rufina VALDEZ [facility] 05-26-2021 SARS-CoV-2 (COVID-19 ) mRNA BNT-162e5 vax Rufina VALDEZ [facility] 05-05-2021 SARS-CoV-2 (COVID-19 ) mRNA BNT-162b2 vax Rufina VALDEZ [facility] 03-11-2021 tetanus toxoid, redu liyah diphtheria toxoid, and acellular pertussis vaccine, adsorbed Rufina VALDEZ [facility] Payers Date Payer Category Payer Unknown [employer] S [employer] BL[employer] MEDICARE ADVANTAGE HMO [id number] 2023-Present [phone] [address] [place] [address] HMO [id number] 2022 Medicare ANTHEM MEDICARE ADVANTAGE [facility] MEDICARE ADVANTAGE [id number] 2022-Present [address] [place] [address] [id number] 2020 Medicaid MEDICAID [facility] [id number] 2020-Present [phone] [address] [place] [address] Medicaid [id number] 1959 Medicaid [id number] 1959 Medicare [id number] 1959 Unknown [id number] 1958 Unknown [id number] 1958 Unknown [id number] 1958 Unknown [id number] 1958 Unknown [id number] 1958 Unknown [id number] 1958 Unknown [id number] 1958 Unknown [id number] [id number] 1958 Unknown [id number] [id number] 1958 Unknown [id number] 1958 Unknown [id number] 1958 Unknown [id number] [id number] 1958 Unknown [id number] [id number] 1958 Unknown [id number] [id number] 1958 Unknown [id number] Self-pay Self Pay [id number] Social History Date Type Detail Facility Tobacco smoking stat [facility] Unknown if ever smoked [facility] Start: 1960 Sex Assigned At Male [facility] Start: 05-17-2022 End: 06-21-2024 Tobacco smoking status Ex-smoker (finding) [facility] Start: 11-13-2023 End: 06-21-2024 Sex Assigned At Male [facility] Tobacco smoking status Never [facility] End: 11-28-2016 History of tobacco use Current smoker [facility] End: 11-28-2016 History of tobacco use Cigarette Smoker [facility] Start: 11-13-2023 End: 06-21-2024 Cigarettes smoked current (pack per day) - Reported 2 [facility] Start: 11-13-2023 End: 07-12-2024 Alcohol intake Ex-drinker (finding) [facility] Start: 1960 Sex Assigned At Not on file N [facility] Start: 05-16-2013 Tobacco smoking stat us [facility] Smokes tobacco daily [facility] Start: 05-16-2013 End: 06-21-2024 Tobacco use and exposure Smokeless tobacco non-user [facility] Start: 05-16-2013 Alcohol intake Current drinke r of alcohol (finding) [facility] Start: 06-21-2024 Alcohol Comment quit 2015 [facility] Goals Date Patient Goal Desired Activity /State Functional Status Date Assessment Result Facility 05-21-2024 Functional Status N/A [facility] 06-06-2023 Functional Status N/A [facility] 05-17-2023 Functional Status N/A [facility] 02-07-2023 Functional Status N/A [facility] 08-05-2022 N/A [facility] 06-11-2022 Functional Status N/A [facility] 05-17-2022 Functional Status N/A [facility] Clinical Notes 05-17-2022 to 07-12-2024 Severo French MD - 07/12/2024 1:15 PM Severo Henderson MD - 06/21/2024 1:17 PM Inez Devi LPN - 06/21/2024 1:08 PM Inez Devi LPN - 06/21/2024 1:08 PM EDT Note Date & Type Note Facility 07-12-2024 History of Presen t illness Narrative Radiation Oncology - Prostate Cancer Follow-up note PATIENT NAME: Mateo Stearns PATIENT DIAGNOSIS: 63 year old male with prostate adenocarcinoma, initial PSA 4.46, biopsy Franklin score 3 + 3 = 6 (grade group 1), clinical stage T1c, N0, M0, stage I [cT1a-c/T2a, N0, M0, PSA <10, GG 1] (AJCC 8th ed.), s/p TRUS Random biopsy. HPI: Patient here for follow-up. He had Decipher testing. Decipher score: 0.43 (low risk) PSA 11/30/2023 4.22. 06/21/2024 6.8 Prior Radiation Therapy, Collagen Vascular Disease, or Inflammatory Bowel Disease: No Any implanted or external electric devices? No Currently on Anticoagulation: No History of Hip Replacement: No History of Prior TURP: No ALLERGIES No Known Allergies aspirin, enteric coated (ASPIRIN, ENTERIC COATED) 81 mg EC tablet TAKE 1 TABLET (81 MG) BY MOUTH IN THE MORNING Benzonatate 200 mg capsule take 1 capsule by mouth 3 times a day as needed for cough budesonide-formoterol (SYMBICORT) 160-4.5 mcg/actuation inhaler INHALE 2 PUFFS INTO THE LUNGS TWICE A DAY FOR 90 DAYS *RINSE MOUTH AFTER USE* RESTASIS 0.05 % ophthalmic emulsion APPLY ONE DROP IN BOTH EYES 2 TIMES A DAY. dilTIAZem XR (DILACOR XR) 180 mg 24 hr capsule Take 180 mg by mouth once daily. guaiFENesin (MUCINEX) 600 mg 12 hr tablet Take 1,[address]op[address] (PROTONIX) 40 mg tablet Take 40 mg by mouth. roflumilast (DALIRESP) 500 mcg tab Take 500 mcg by mouth once daily. tiotropium (SPIRIVA WITH HANDIHALER) 18 mcg inhalation capsule Inhale 18 mcg as instructed once daily. ALBUTEROL SULFATE (PROVENTIL HFA INHALATION) Inhale as instructed. IBUPROFEN (ADVIL ORAL) Take by mouth. fluticasone-salmeterol (ADVAIR DISKUS) 250-50 mcg/dose DsDv Inhale 1 Puff as instructed twice daily. doxycycline 100 mg tablet Take 1 tablet by mouth twice daily. predniSONE 20 mg tablet Take 2 pills daily x 3 days PAST MEDICAL HISTORY No date: Atrial fibrillation (HCC) No date: COPD (chronic obstructive pulmonary disease) (HCC) No date: Emphysema of lung (HCC) No date: GERD (gastroesophageal reflux disease) PAST SURGICAL HISTORY 1966: ELBOW; Left No date: FOOT RIGHT OP SURGERY No date: REVISE MEDIAN N/CARPAL TUNNEL SURG; Left No date: TOTAL HIP REPLACEMENT; Bilateral FAMILY HISTORY Problem Relation Age of Onset COPD Father Social History Tobacco Use Smoking status: Former Packs/day: 2.50 Years: 37.00 Additional pack years: 0.00 Total pack years: 92.50 Types: Cigarettes Quit date: 2016 Years since quittin.6 Smokeless tobacco: Never Vaping Use Vaping Use: Never used Substance Use Topics Alcohol use: Not Currently Comment: quit 2015 Drug use: Not Currently Frequency: 2.0 times per week Types: Marijuana REVIEW OF SYSTEMS: GENERAL: feeling well without fatigue, no recent change in weight NECK: denies swelling or pain in neck RESPIRATORY: chronic lung disease under good control with current medication CARDIOVASCULAR: no chest pain, no palpitations MUSCULOSKELETAL: denies any painful or swollen joints, no muscle aches SKIN: no rash ENDOCRINE: denies cold/heat intolerance, denies polyuria or polydipsia, no goiter As noted in HPI PHYSICAL EXAM: VS: BP 157/83 Pulse 95 Temp 36.7 C (98.1 F) Resp 18 Wt 67.8 kg (149 lb 7.6 oz) SpO2 95% BMI 23.41 kg/m KARNOFSKY PERFORMANCE STATUS: 100 General Appearance: Alert and oriented. No acute distress. Lymphatics: No palpable lymphadenopathy. GENITOURINARY: Deferred exam RECTAL: Deferred exam RADIOLOGY/LABORATORY DATA: see HPI ASSESSMENT/PLAN: Prostate adenocarcinoma, initial PSA 4.46, biopsy Brenden score 3 + 3 = 6 (grade group 1), clinical stage T1c, N0, M0, stage I [cT1a-c/T2a, N0, M0, PSA <10, GG 1] (AJCC 8th ed.), s/p TRUS Random biopsy. Prostate cancer (C61), 2019 NCCN Risk Group: Low Risk Group Clinical State: Localized Cancer - New Diagnosis Discussed options at length with the patient again. Patient still unsure what he wants to do in terms of treatment. We again discussed active surveillance. Discussed his decipher test for which is low risk but close to intermediate risk. Patient has had a second PSA drawn that has risen from 4.2-6.8 in 6 months. Patient did not want to make that decision at this time but seems to be leaning toward definitive treatment, at this time not interested in surgery. He does however want to wait a couple months and I think this would not be unreasonable can potentially be checked PSA in 2 to 3 months. Signed by: Severo French MD cc: Kathie Sánchez, AIRCRAFT MAINTENANCE INSTRUCTOR ([facility]) [address] [place] [address] Rufina Valdez [address] [place] [address] documented in this encounter [facility] 07-12-2024 Note HNO ID: [id number] Author: Severo FRENCH MD Service: ? Author Type: Physician Type: Progress Notes Filed: 07/12/2024 13:34 Note Text: Radiation Oncology - Prostate Cancer Follow-up note PATIENT NAME: Mateo Stearns PATIENT DIAGNOSIS: 63 year old male with prostate adenocarcinoma, initial PSA 4.46, biopsy Brenden score 3 + 3 = 6 (grade group 1), clinical stage T1c, N0, M0, stage I [cT1a-c/T2a, N0, M0, PSA <10, GG 1] (AJCC 8th ed.), s/p TRUS Random biopsy. HPI: Patient here for follow-up. He had Decipher testing. Decipher score: 0.43 (low risk) PSA 11/30/2023 4.22. 06/21/2024 6.8 Prior Radiation Therapy, Collagen Vascular Disease, or Inflammatory Bowel Disease: No Any implanted or external electric devices? No Currently on Anticoagulation: No History of Hip Replacement: No History of Prior TURP: No ALLERGIES No Known Allergies aspirin, enteric coated (ASPIRIN, ENTERIC COATED) 81 mg EC tablet TAKE 1 TABLET (81 MG) BY MOUTH IN THE MORNING Benzonatate 200 mg capsule take 1 capsule by mouth 3 times a day as needed for cough budesonide-formoterol (SYMBICORT) 160-4.5 mcg/actuation inhaler INHALE 2 PUFFS INTO THE LUNGS TWICE A DAY FOR 90 DAYS *RINSE MOUTH AFTER USE* RESTASIS 0.05 % ophthalmic emulsion APPLY ONE DROP IN BOTH EYES 2 TIMES A DAY. dilTIAZem XR (DILACOR XR) 180 mg 24 hr capsule Take 180 mg by mouth once daily. guaiFENesin (MUCINEX) 600 mg 12 hr tablet Take 1,[address] (PROTONIX) 40 mg tablet Take 40 mg by mouth. roflumilast (DALIRESP) 500 mcg tab Take 500 mcg by mouth once daily. tiotropium (SPIRIVA WITH HANDIHALER) 18 mcg inhalation capsule Inhale 18 mcg as instructed once daily. ALBUTEROL SULFATE (PROVENTIL HFA INHALATION) Inhale as instructed. IBUPROFEN (ADVIL ORAL) Take by mouth. fluticasone-salmeterol (ADVAIR DISKUS) 250-50 mcg/dose DsDv Inhale 1 Puff as instructed twice daily. doxycycline 100 mg tablet Take 1 tablet by mouth twice daily. predniSONE 20 mg tablet Take 2 pills daily x 3 days PAST MEDICAL HISTORY No date: Atrial fibrillation (HCC) No date: COPD (chronic obstructive pulmonary disease) (HCC) No date: Emphysema of lung (HCC) No date: GERD (gastroesophageal reflux disease) PAST SURGICAL HISTORY 1967: ELBOW; Left No date: FOOT RIGHT OP SURGERY No date: REVISE MEDIAN N/CARPAL TUNNEL SURG; Left No date: TOTAL HIP REPLACEMENT; Bilateral FAMILY HISTORY Problem Relation Age of Onset COPD Father Social History Tobacco Use Smoking status: Former Packs/day: 2.50 Years: 37.00 Additional pack years: 0.00 Total pack years: 92.50 Types: Cigarettes Quit date: 2016 Years since quittin.6 Smokeless tobacco: Never Vaping Use Vaping Use: Never used Substance Use Topics Alcohol use: Not Currently Comment: quit 2015 Drug use: Not Currently Frequency: 2.0 times per week Types: Marijuana REVIEW OF SYSTEMS: GENERAL: feeling well without fatigue, no recent change in weight NECK: denies swelling or pain in neck RESPIRATORY: chronic lung disease under good control with current medication CARDIOVASCULAR: no chest pain, no palpitations MUSCULOSKELETAL: denies any painful or swollen joints, no muscle aches SKIN: no rash ENDOCRINE: denies cold/heat intolerance, denies polyuria or polydipsia, no goiter As noted in HPI PHYSICAL EXAM: VS: BP 157/83 Pulse 95 Temp 36.7 ?C (98.1 ?F) Resp 18 Wt 67.8 kg (149 lb 7.6 oz) SpO2 95% BMI 23.41 kg/m? KARNOFSKY PERFORMANCE STATUS: 100 General Appearance: Alert and oriented. No acute distress. Lymphatics: No palpable lymphadenopathy. GENITOURINARY: Deferred exam RECTAL: Deferred exam RADIOLOGY/LABORATORY DATA: see HPI ASSESSMENT/PLAN: Prostate adenocarcinoma, initial PSA 4.46, biopsy Franklin score 3 + 3 = 6 (grade group 1), clinical stage T1c, N0, M0, stage I [cT1a-c/T2a, N0, M0, PSA <10, GG 1] (AJCC 8th ed.), s/p TRUS Random biopsy. Prostate cancer (C61), 2019 NCCN Risk Group: Low Risk Group Clinical State: Localized Cancer - New Diagnosis Discussed options at length with the patient again. Patient still unsure what he wants to do in terms of treatment. We again discussed active surveillance. Discussed his decipher test for which is low risk but close to intermediate risk. Patient has had a second PSA drawn that has risen from 4.2-6.8 in 6 months. Patient did not want to make that decision at this time but seems to be leaning toward definitive treatment, at this time not interested in surgery. He does however want to wait a couple months and I think this would not be unreasonable can potentially be checked PSA in 2 to 3 months. Signed by: Severo French MD cc: Kathie Sánchez, AIRCRAFT MAINTENANCE INSTRUCTOR ([facility]) [address] [place] [address] Rufina Valdez [address] [place] [address] [facility] 06-21-2024 Note HNO ID: [id number] Author: Severo FRENCH MD Service: ? Author Type: Physician Type: Progress Notes Filed: 06/21/2024 13:50 Note Text: Radiation Oncology - Prostate Cancer New Patient/Consult Note PATIENT NAME: Mateo Stearns PATIENT REQUESTING PROVIDER: Dr. Valdez DIAGNOSIS: 63 year old male with prostate adenocarcinoma, initial PSA 4.46, biopsy Franklin score 3 + 3 = 6 (grade group 1), clinical stage T1c, N0, M0, stage I [cT1a-c/T2a, N0, M0, PSA <10, GG 1] (AJCC 8th ed.), s/p TRUS Random biopsy. HPI: 63 year old male with prostate adenocarcinoma who presents for an opinion regarding the role of radiation therapy in the management of the patient's disease. Final recommendations will be communicated back to the requesting physician by way of the shared medical record, or letter to requesting physician via [place] mail. The patient was diagnosed with prostate cancer and comes in today to discuss treatment options. Patient initially presented April 2023 with elevated PSA and prostate biopsy demonstrating Brenden 6 adenocarcinoma in 2 cores. (Left lateral base and left base) He was placed on active surveillance. PSA 11/30/2023 was 4.22. He underwent repeat prostate biopsy on 05/01/2024 with the finding of adenocarcinoma, Franklin 6 (3+3) from left lateral base, left base, left, left mid, left apical cores. (05/13 cores involoved) Staging Studies: None Previous Treatment for Prostate Cancer: None Genomic Testing: None The patient reports the following pertinent history: Urinary frequency (D/N): 4-6/1-2 Dysuria: No Incontinence: 1- No pads Hematuria: No - Total AUA Score: Were doing on his Bowel Movement Frequency: 1/day Bowel Movement Quality: Normal Blood per Rectum: No Last Colonoscopy: na Baseline Erectile Function: 5- No erections Androgen Deprivation: none Prior Radiation Therapy, Collagen Vascular Disease, or Inflammatory Bowel Disease: No Any implanted or external electric devices? No Currently on Anticoagulation: No History of Hip Replacement: No History of Prior TURP: No ALLERGIES No Known Allergies aspirin, enteric coated (ASPIRIN, ENTERIC COATED) 81 mg EC tablet TAKE 1 TABLET (81 MG) BY MOUTH IN THE MORNING Benzonatate 200 mg capsule take 1 capsule by mouth 3 times a day as needed for cough budesonide-formoterol (SYMBICORT) 160-4.5 mcg/actuation inhaler INHALE 2 PUFFS INTO THE LUNGS TWICE A DAY FOR 90 DAYS *RINSE MOUTH AFTER USE* RESTASIS 0.05 % ophthalmic emulsion APPLY ONE DROP IN BOTH EYES 2 TIMES A DAY. dilTIAZem XR (DILACOR XR) 180 mg 24 hr capsule Take 180 mg by mouth once daily. guaiFENesin (MUCINEX) 600 mg 12 hr tablet Take 1,[address] mouth[address] (PROTONIX) 40 mg tablet Take 40 mg by mouth. roflumilast (DALIRESP) 500 mcg tab Take 500 mcg by mouth once daily. tiotropium (SPIRIVA WITH HANDIHALER) 18 mcg inhalation capsule Inhale 18 mcg as instructed once daily. ALBUTEROL SULFATE (PROVENTIL HFA INHALATION) Inhale as instructed. IBUPROFEN (ADVIL ORAL) Take by mouth. fluticasone-salmeterol (ADVAIR DISKUS) 250-50 mcg/dose DsDv Inhale 1 Puff as instructed twice daily. doxycycline 100 mg tablet Take 1 tablet by mouth twice daily. predniSONE 20 mg tablet Take 2 pills daily x 3 days PAST MEDICAL HISTORY Diagnosis Date Atrial fibrillation (HCC) COPD (chronic obstructive pulmonary disease) (HCC) Emphysema of lung (HCC) GERD (gastroesophageal reflux disease) PAST SURGICAL HISTORY Procedure Laterality Date ELBOW Left 1967 FOOT RIGHT OP SURGERY REVISE MEDIAN N/CARPAL TUNNEL SURG Left TOTAL HIP REPLACEMENT Bilateral FAMILY HISTORY Problem Relation Age of Onset COPD Father Social History Tobacco Use Smoking status: Former Packs/day: 2.50 Years: 37.00 Additional pack years: 0.00 Total pack years: 92.50 Types: Cigarettes Quit date: 2016 Years since quittin.5 Smokeless tobacco: Never Vaping Use Vaping Use: Never used Substance Use Topics Alcohol use: Not Currently Comment: quit 2015 Drug use: Not Currently Frequency: 2.0 times per week Types: Marijuana REVIEW OF SYSTEMS: GENERAL: feeling well without fatigue, no recent change in weight NECK: denies swelling or pain in neck RESPIRATORY: chronic lung disease under good control with current medication CARDIOVASCULAR: no chest pain, no palpitations MUSCULOSKELETAL: denies any painful or swollen joints, no muscle aches SKIN: no rash ENDOCRINE: denies cold/heat intolerance, denies polyuria or polydipsia, no goiter As noted in HPI PHYSICAL EXAM: VS: BP 124/75 Pulse 86 Temp 36.4 ?C (97.5 ?F) Resp 20 Ht 170.2 cm (5' 7 ) Wt 67.8 kg (149 lb 7.6 oz) SpO2 95% BMI 23.41 kg/m? KARNOFSKY PERFORMANCE STATUS: 100 General Appearance: Alert and oriented. No acute distress. HEENT: NCAT. Sclera anicteric. PERRL. EOMI. Neck: Normal ROM. No palpable cervical or supraclavicular adenopathy. Chest: No respir (more content not included)... [facility] 06-21-2024 History of Presen t illness Narrative Radiation Oncology - Prostate Cancer New Patient/Consult Note PATIENT NAME: Mateo Stearns PATIENT REQUESTING PROVIDER: Dr. Valdez DIAGNOSIS: 63 year old male with prostate adenocarcinoma, initial PSA 4.46, biopsy Brenden score 3 + 3 = 6 (grade group 1), clinical stage T1c, N0, M0, stage I [cT1a-c/T2a, N0, M0, PSA <10, GG 1] (AJCC 8th ed.), s/p TRUS Random biopsy. HPI: 63 year old male with prostate adenocarcinoma who presents for an opinion regarding the role of radiation therapy in the management of the patient's disease. Final recommendations will be communicated back to the requesting physician by way of the shared medical record, or letter to requesting physician via [place] mail. The patient was diagnosed with prostate cancer and comes in today to discuss treatment options. Patient initially presented April 2023 with elevated PSA and prostate biopsy demonstrating Franklin 6 adenocarcinoma in 2 cores. (Left lateral base and left base) He was placed on active surveillance. PSA 11/30/2023 was 4.22. He underwent repeat prostate biopsy on 05/01/2024 with the finding of adenocarcinoma, Franklin 6 (3+3) from left lateral base, left base, left, left mid, left apical cores. (6/16 cores involoved) Staging Studies: None Previous Treatment for Prostate Cancer: None Genomic Testing: None The patient reports the following pertinent history: Urinary frequency (D/N): 4-6/1-2 Dysuria: No Incontinence: 1- No pads Hematuria: No - Total AUA Score: Were doing on his Bowel Movement Frequency: 1/day Bowel Movement Quality: Normal Blood per Rectum: No Last Colonoscopy: na Baseline Erectile Function: 5- No erections Androgen Deprivation: none Prior Radiation Therapy, Collagen Vascular Disease, or Inflammatory Bowel Disease: No Any implanted or external electric devices? No Currently on Anticoagulation: No History of Hip Replacement: No History of Prior TURP: No ALLERGIES No Known Allergies aspirin, enteric coated (ASPIRIN, ENTERIC COATED) 81 mg EC tablet TAKE 1 TABLET (81 MG) BY MOUTH IN THE MORNING Benzonatate 200 mg capsule take 1 capsule by mouth 3 times a day as needed for cough budesonide-formoterol (SYMBICORT) 160-4.5 mcg/actuation inhaler INHALE 2 PUFFS INTO THE LUNGS TWICE A DAY FOR 90 DAYS *RINSE MOUTH AFTER USE* RESTASIS 0.05 % ophthalmic emulsion APPLY ONE DROP IN BOTH EYES 2 TIMES A DAY. dilTIAZem XR (DILACOR XR) 180 mg 24 hr capsule Take 180 mg by mouth once daily. guaiFENesin (MUCINEX) 600 mg 12 hr tablet Take 1,[address] (PROTONIX) 40 mg tablet Take 40 mg by mouth. roflumilast (DALIRESP) 500 mcg tab Take 500 mcg by mouth once daily. tiotropium (SPIRIVA WITH HANDIHALER) 18 mcg inhalation capsule Inhale 18 mcg as instructed once daily. ALBUTEROL SULFATE (PROVENTIL HFA INHALATION) Inhale as instructed. IBUPROFEN (ADVIL ORAL) Take by mouth. fluticasone-salmeterol (ADVAIR DISKUS) 250-50 mcg/dose DsDv Inhale 1 Puff as instructed twice daily. doxycycline 100 mg tablet Take 1 tablet by mouth twice daily. predniSONE 20 mg tablet Take 2 pills daily x 3 days PAST MEDICAL HISTORY Diagnosis Date Atrial fibrillation (HCC) COPD (chronic obstructive pulmonary disease) (HCC) Emphysema of lung (HCC) GERD (gastroesophageal reflux disease) PAST SURGICAL HISTORY Procedure Laterality Date ELBOW Left 1967 FOOT RIGHT OP SURGERY REVISE MEDIAN N/CARPAL TUNNEL SURG Left TOTAL HIP REPLACEMENT Bilateral FAMILY HISTORY Problem Relation Age of Onset COPD Father Social History Tobacco Use Smoking status: Former Packs/day: 2.50 Years: 37.00 Additional pack years: 0.00 Total pack years: 92.50 Types: Cigarettes Quit date: 2016 Years since quittin.5 Smokeless tobacco: Never Vaping Use Vaping Use: Never used Substance Use Topics Alcohol use: Not Currently Comment: quit 2016 Drug use: Not Currently Frequency: 2.0 times per week Types: Marijuana REVIEW OF SYSTEMS: GENERAL: feeling well without fatigue, no recent change in weight NECK: denies swelling or pain in neck RESPIRATORY: chronic lung disease under good control with current medication CARDIOVASCULAR: no chest pain, no palpitations MUSCULOSKELETAL: denies any painful or swollen joints, no muscle aches SKIN: no rash ENDOCRINE: denies cold/heat intolerance, denies polyuria or polydipsia, no goiter As noted in HPI PHYSICAL EXAM: VS: BP 124/75 Pulse 86 Temp 36.4 C (97.5 F) Resp 20 Ht 170.2 cm (5' 7 ) Wt 67.8 kg (149 lb 7.6 oz) SpO2 95% BMI 23.41 kg/m KARNOFSKY PERFORMANCE STATUS: 100 General Appearance: Alert and oriented. No acute distress. HEENT: NCAT. Sclera anicteric. PERRL. EOMI. Neck: Normal ROM. No palpable cervical or supraclavicular adenopathy. Chest: No respiratory distress. Lungs clear to auscultation bilaterally. Heart: Regular rate and rhythm. Abdomen: Soft. Nontender. Nondistended. Musculoskeletal: No edema. Normal ROM in extremities. No bone or spine tenderness. Neuro: Speech fluent. Gait normal. No focal deficits. Skin: No rashes noted Lymphatics: No palpable lymphadenopathy. GENITOURINARY: Deferred exam RECTAL: Deferred exam RADIOLOGY/LABORATORY DATA: see HPI ASSESSMENT/PLAN: Prostate adenocarcinoma, initial PSA 4.46, biopsy Franklin score 3 + 3 = 6 (grade group 1), clinical stage T1c, N0, M0, stage I [cT1a-c/T2a, N0, M0, PSA <10, GG 1] (AJCC 8th ed.), s/p TRUS Random biopsy. Prostate cancer (C61), 2019 NCCN Risk Group: Low Risk Group Clinical State: Localized Cancer - New Diagnosis Patient presents with a localized low risk adenocarcinoma of the prostate. Initially on active surveillance with increased percentage of biopsy cores involved on second biopsy. Patient is seeking opinions regarding potential treatment options. He is considering surgery versus active surveillance. I did discuss with him general options for localized low risk prostate cancer. We discussed both active surveillance and definitive treatment strategies. Discussed at length potential options including radiation and brachytherapy. I do feel patient would be appropriate For brachytherapy. Potential acute and long-term risks discussed. Patient still somewhat hesitant about pursuing treatment given his other medical issues. I would like to obtain decipher test to help with further management decisions. Will plan to see him back after this. Signed by: Severo French MD cc: Kathie Sánchez, AIRCRAFT MAINTENANCE INSTRUCTOR ([facility]) [address] [place] [address] Rufina Valdez [address] [place] [id number] documented in this encounter [facility] 06-21-2024 Nurse Note Pacemaker/Defibrillator?N Previous Cancer(s)?N Previous Radiation?N Lupus/Scleroderma?N On body monitoring device?N AUA= 5 [facility] 06-21-2024 Nurse Note Pacemaker/Defibrillator?N Previous Cancer(s)?N Previous Radiation?N Lupus/Scleroderma?N On body monitoring device?N AUA= 5 documented in this encounter [facility] 06-01-2024 Note HNO ID: [id number] Author: AMANDEEP CRISOSTOMO MD Service: ? Author Type: Physician Type: Progress Notes Filed: 06/24/2024 16:18 Note Text: Referring Provider: Chief Complaint: Recently diagnosed CaP HPI: 63 year old male from [place], [place] with a PMHx of COPD (40 pack-year smoker), Afib (on ASA), and GERD diagnosed with CAP in 05/20 which showed 2 cores of Brenden 6 disease. He has sever COPD with shortness of breath on exertion and O2 saturation in high 80s. He was started on . In , his PSA was 4.22 and his urology decided to repeat a biopsy with 8/18 cores positive for Franklin 6 disease. Past surgical Hx: total hip replacement, denies any abdominal surgeries History: Voiding history: wakes up 3-4x a night, strong stream, denies any gross hematuria No longer sexually active and does not really have erections Family History of Genitourinary Cancer: Unsure REVIEW OF SYSTEMS GENERAL:No weight loss, malaise or fevers., SEE HPI HEENT:Negative for frequent or significant headaches, No changes in hearing or vision, no nose bleeds or other nasal problems RESPIRATORY: Severe COPD, Wheezing, Shortness of breath CARDIOVASCULAR: Negative for chest pain, leg swelling or palpitations. GASTROINTESTINAL: Negative for abdominal discomfort, blood in stools or black stools or change in bowel habits GENITOURINARY: No history of dysuria, frequency or incontinence MUSCULOSKELETAL: Negative for joint pain or swelling, back pain or muscle pain. NEUROLOGIC:Negative for focal numbness or weakness, headaches and dizziness or syncope. HEMATOLOGIC/LYMPHATIC/IMMUNOLOG IC:Negative for prolonged bleeding, bruising easily or swollen nodes. ENDOCRINE: Negative for cold or heat intolerance, polyuria, polydipsia and goiter. The remainder of the ROS was negative. HISTORIES PAST MEDICAL HISTORY Diagnosis Date COPD (chronic obstructive pulmonary disease) Current Outpatient Medications Medication Sig RESTASIS 0.05 % ophthalmic emulsion APPLY ONE DROP IN BOTH EYES 2 TIMES A DAY. pantoprazole DR (PROTONIX) 40 mg tablet Take 40 mg by mouth. aspirin, enteric coated (ASPIRIN, ENTERIC COATED) 81 mg EC tablet TAKE 1 TABLET (81 MG) BY MOUTH IN THE MORNING Benzonatate 200 mg capsule take 1 capsule by mouth 3 times a day as needed for cough budesonide-formoterol (SYMBICORT) 160-4.5 mcg/actuation inhaler INHALE 2 PUFFS INTO THE LUNGS TWICE A DAY FOR 90 DAYS *RINSE MOUTH AFTER USE* dilTIAZem XR (DILACOR XR) 180 mg 24 hr capsule Take 180 mg by mouth once daily. guaiFENesin (MUCINEX) 600 mg 12 hr tablet Take 1,200 mg by mouth. roflumilast (DALIRESP) 500 mcg tab Take 500 mcg by mouth once daily. tiotropium (SPIRIVA WITH HANDIHALER) 18 mcg inhalation capsule Inhale 18 mcg as instructed once daily. ALBUTEROL SULFATE (PROVENTIL HFA INHALATION) Inhale as instructed. IBUPROFEN (ADVIL ORAL) Take by mouth. fluticasone-salmeterol (ADVAIR DISKUS) 250-50 mcg/dose DsDv Inhale 1 Puff as instructed twice daily. doxycycline 100 mg tablet Take 1 tablet by mouth twice daily. predniSONE 20 mg tablet Take 2 pills daily x 3 days No current facility-administered medications for this visit. FAMILY HISTORY Problem Relation Age of Onset COPD Father Cancer Maternal Grandmother Cancer Maternal Grandfather Cancer Paternal Grandmother Cancer Paternal Grandfather SOCIAL HISTORY Social History Tobacco Use Smoking status: Every Day Packs/day: 2.50 Years: 37.00 Additional pack years: 0.00 Total pack years: 92.50 Types: Cigarettes Smokeless tobacco: Never Substance Use Topics Alcohol use: Yes Drug use: Yes Frequency: 2.0 times per week Types: Marijuana PHYSICAL EXAMINATION General appearance: Well appearing, alert, in no acute distress, and well-hydrated, well nourished Back: no pain to palpation over spine or costovertebral angles, reflexes are 2+ and symmetric, motor and sensory appear to be normal Lungs: Positive findings: wheezing Heart: Not examined Abdomen: Normal abdominal exam, Abdomen soft, non-tender. Bowel sounds normal. No masses, organomegaly Extremities: Extremities normal. No deformities, edema, or skin discoloration. Good capillary refill. Musculoskeletal: Spine range of motion normal. Muscular strength intact, No joint swelling, deformity, or tenderness Genitourinary: Deferred LABS PSA 12/21: 4.22 IMAGING No imaging to review Assessment 63 year old male from [place], [place] with a PMHx of COPD (40 pack-year smoker and poor oxygenation status), Afib (on ASA), and GERD diagnosed with CAP in 05/20 which showed 2 cores of Franklin 6 disease. Recently had more + cores on a repeat biopsy and is here to discuss treatment options. He currently has low risk disease. We discussed the treatment options which include continued active surveillance, RARP, and XRT including EBRT or brachytherapy. Given patient's COPD status he may not be best candidate for surgery an (more content not included)... [facility] 06-01-2024 History of Presen t illness Narrative Referring Provider: Chief Complaint: Recently diagnosed CaP HPI: 63 year old male from [place], [place] with a PMHx of COPD (40 pack-year smoker), Afib (on ASA), and GERD diagnosed with CAP in 05/20 which showed 2 cores of Franklin 6 disease. He has sever COPD with shortness of breath on exertion and O2 saturation in high 80s. He was started on . In , his PSA was 4.22 and his urology decided to repeat a biopsy with 8/18 cores positive for Brenden 6 disease. Past surgical Hx: total hip replacement, denies any abdominal surgeries History: Voiding history: wakes up 3-4x a night, strong stream, denies any gross hematuria No longer sexually active and does not really have erections Family History of Genitourinary Cancer: Unsure REVIEW OF SYSTEMS GENERAL:No weight loss, malaise or fevers., SEE HPI HEENT:Negative for frequent or significant headaches, No changes in hearing or vision, no nose bleeds or other nasal problems RESPIRATORY: Severe COPD, Wheezing, Shortness of breath CARDIOVASCULAR: Negative for chest pain, leg swelling or palpitations. GASTROINTESTINAL: Negative for abdominal discomfort, blood in stools or black stools or change in bowel habits GENITOURINARY: No history of dysuria, frequency or incontinence MUSCULOSKELETAL: Negative for joint pain or swelling, back pain or muscle pain. NEUROLOGIC:Negative for focal numbness or weakness, headaches and dizziness or syncope. HEMATOLOGIC/LYMPHATIC/IMMUNOLOG IC:Negative for prolonged bleeding, bruising easily or swollen nodes. ENDOCRINE: Negative for cold or heat intolerance, polyuria, polydipsia and goiter. The remainder of the ROS was negative. HISTORIES PAST MEDICAL HISTORY Diagnosis Date COPD (chronic obstructive pulmonary disease) Current Outpatient Medications Medication Sig RESTASIS 0.05 % ophthalmic emulsion APPLY ONE DROP IN BOTH EYES 2 TIMES A DAY. pantoprazole DR (PROTONIX) 40 mg tablet Take 40 mg by mouth. aspirin, enteric coated (ASPIRIN, ENTERIC COATED) 81 mg EC tablet TAKE 1 TABLET (81 MG) BY MOUTH IN THE MORNING Benzonatate 200 mg capsule take 1 capsule by mouth 3 times a day as needed for cough budesonide-formoterol (SYMBICORT) 160-4.5 mcg/actuation inhaler INHALE 2 PUFFS INTO THE LUNGS TWICE A DAY FOR 90 DAYS *RINSE MOUTH AFTER USE* dilTIAZem XR (DILACOR XR) 180 mg 24 hr capsule Take 180 mg by mouth once daily. guaiFENesin (MUCINEX) 600 mg 12 hr tablet Take 1,200 mg by mouth. roflumilast (DALIRESP) 500 mcg tab Take 500 mcg by mouth once daily. tiotropium (SPIRIVA WITH HANDIHALER) 18 mcg inhalation capsule Inhale 18 mcg as instructed once daily. ALBUTEROL SULFATE (PROVENTIL HFA INHALATION) Inhale as instructed. IBUPROFEN (ADVIL ORAL) Take by mouth. fluticasone-salmeterol (ADVAIR DISKUS) 250-50 mcg/dose DsDv Inhale 1 Puff as instructed twice daily. doxycycline 100 mg tablet Take 1 tablet by mouth twice daily. predniSONE 20 mg tablet Take 2 pills daily x 3 days No current facility-administered medications for this visit. FAMILY HISTORY Problem Relation Age of Onset COPD Father Cancer Maternal Grandmother Cancer Maternal Grandfather Cancer Paternal Grandmother Cancer Paternal Grandfather SOCIAL HISTORY Social History Tobacco Use Smoking status: Every Day Packs/day: 2.50 Years: 37.00 Additional pack years: 0.00 Total pack years: 92.50 Types: Cigarettes Smokeless tobacco: Never Substance Use Topics Alcohol use: Yes Drug use: Yes Frequency: 2.0 times per week Types: Marijuana PHYSICAL EXAMINATION General appearance: Well appearing, alert, in no acute distress, and well-hydrated, well nourished Back: no pain to palpation over spine or costovertebral angles, reflexes are 2+ and symmetric, motor and sensory appear to be normal Lungs: Positive findings: wheezing Heart: Not examined Abdomen: Normal abdominal exam, Abdomen soft, non-tender. Bowel sounds normal. No masses, organomegaly Extremities: Extremities normal. No deformities, edema, or skin discoloration. Good capillary refill. Musculoskeletal: Spine range of motion normal. Muscular strength intact, No joint swelling, deformity, or tenderness Genitourinary: Deferred LABS PSA 12/21: 4.22 IMAGING No imaging to review Assessment 63 year old male from [place], [place] with a PMHx of COPD (40 pack-year smoker and poor oxygenation status), Afib (on ASA), and GERD diagnosed with CAP in 05/20 which showed 2 cores of Franklin 6 disease. Recently had more + cores on a repeat biopsy and is here to discuss treatment options. He currently has low risk disease. We discussed the treatment options which include continued active surveillance, RARP, and XRT including EBRT or brachytherapy. Given patient's COPD status he may not be best candidate for surgery and may benefit from continued surveillance. Plan -Continue with -PSA today and then PSA every 6 months -Follow-up with Tisha Kirby in 6 months Amandeep Crisostomo MD documented in this encounter [facility] 06-01-2024 Note Patient Outreach (UR OLMN) MATEO STEARNS ([id number]) 1960 M Date Time Provider Department 06/01/24 AMANDEEP CRISOSTOMO During your visit today, we recorded the following information about you: Allergies As of Date: 06/01/2024 (No Known Allergies) Date Reviewed: 06/01/2024 Reviewed by: Garrett Davis MA - Fully Assessed Visit Diagnosis:Screening for genitourinary condition [Z13.89] Order(s):URINALYSIS, REFLEX MICROSCOPIC [CSY7755] Order #: [id number]. #:[id number] Prescriptions as of 06/04/2024 - aspirin, enteric [...] Marijuana smoker [F12.90] 05/16/2013 Encounter Status:Closed by YANIRA, PRODUSER on 06/04/24 [facility] 05-21-2024 Hospital Discharg e instructions Patient [...] under a microscope. This is called the Franklin score and the total score can range from 6 10, indicating how likely it is that the cancer will spread (metastasize) to other parts of the body. The higher the score, the greater the likelihood that the cancer will spread. Franklin 6 or lower: This indicates that the cancer cells look similar to normal prostate cells (well differentiated). Franklin 7: This indicates that the cancer cells look somewhat similar to normal prostate cells (moderately differentiated). Franklin 8, 9, or 10: This indicates that [...] stress of having cancer. General instructions Take cnre-fyv-gfvvibu and prescription medicines only as told by your health care provider. If you have to go to the hospital, notify your cancer specialist (oncologist). Keep all follow-up visits. This is important. Where to find more information [place] [employer]: www.cancer.org [place] Society of Clinical Oncology: www.cancer.net National Cancer Issue: www.cancer.gov Contact a health care provider if: [...] provider. Document Revised: 02/10/2022 Document Reviewed: 02/10/2022 [employer] Patient Education 2022 [email or web address]. Follow Up Care 01/02/2024 13:58:04 With:DIONY CHANDLER, Rufina Reina, URL Address: [facility] [address] , [place] [address] [phone] When: Unknown [facility] 05-01-2024 Hospital Discharg e instructions Patient Education [...] for your post-operative appointment in 1-2 weeks [phone] or [phone] Follow Up Care 03/15/2024 14:41:59 With:Rufina VALDEZ Address: [address] [place], [place] [id number] [facility] (1) When: Unknown Comments:Keep scheduled appointment [facility] 05-01-2024 Note [id number] [facility] 06-06-2023 Hospital Discharg e instructions Patient Education [...] the likelihood that the cancer will spread. Franklin 6 or lower: This indicates that the cancer cells look similar to normal prostate cells (well differentiated). Brenden 7: This indicates that the cancer cells look somewhat similar to normal prostate cells (moderately differentiated). Franklin 8, 9, or 10: This indicates that [...] stress of having cancer. General instructions Take jtja-ibn-qcvquee and prescription medicines only as told by your health care provider. If you have to go to the hospital, notify your cancer specialist (oncologist). Keep all follow-up visits. This is important. Where to find more information [place] [employer]: www.cancer.org [place] [employer] of Clinical Oncology: www.cancer.net National Cancer Issue: www.cancer.gov Contact a health care provider if: [...] provider. Document Revised: 02/10/2022 Document Reviewed: 02/10/2022 [employer] Patient Education 2022 [email or web address]. Follow Up Care 04/27/2023 15:15:09 With:DIONY CHANDLER, Rufina Reina, URL Address: [facility] [address] , [place] [address] [phone] When:Within 6 Month(s) Comments:PSA and ANNE-MARIE [facility] 05-17-2023 Hospital Discharg e instructions Patient Education [...] for your post-operative appointment in 1-2 weeks [phone] or [phone] Follow Up Care 04/27/2023 15:25:07 With:Rufina VALDEZ Address: [facility] [address] [place] [address]- Business (1) When: Unknown Comments:Keep scheduled appointment [facility] 02-07-2023 Hospital Discharg e instructions [...] if anything looks unusual. Men with a wynmcz-oqyi-bemync risk for skin cancer may want to see a personnel placement specialist (manager food) for an annual body check. Where to find more information National Cancer Issue: https://www.cancer.gov/about-ca ncer/screening Centers for Disease Control and Prevention: https://www.cdc.gov/cancer/dcpc /prevention/screening.htm [place] [employer] Society: https://www.cancer.org/latest-n ews/7-phwufx-dsrlmtwhw-tests-fo r-men.html Contact a health care provider if: [...] 08/11/2017 Document Revised: 08/03/2019 Document Reviewed: 08/11/2017 [employer] Patient Education 2020 [email or web address]. Follow Up Care 12/10/2022 10:33:39 With:DIONY CHANDLER, Rufina Reina, URL Address: [facility] [address] , [place] [address]- When: Unknown [facility] 05-17-2022 Hospital Discharg e instructions Patient Education 05/17/2022 13:40:29 Epidermal Cyst, Hvbp-az-Orve Epidermal Cyst An epidermal cyst is a [...] yourself. Follow these instructions at home: Take anng-rdi-htxgkvj and prescription medicines only as told by [...] the cyst, or to remove it. Take bepn-qic-xsqhbym and prescription medicines only as told by [...] 12/22/2005 Document Revised: 03/06/2020 Document Reviewed: 08/23/2019 [employer] Patient Education 2019 [email or web address]. 04/19/2022 08:23:29 Testicular Self-Exam Testicular Self-Exam A [...] 02/20/2002 Document Revised: 03/06/2020 Document Reviewed: 10/10/2017 [employer] Patient Education 2020 [email or web address]. Follow Up Care 03/17/2022 10:53:14 With:Rufina VALDEZ MD, URL Address: [facility] [address], [place] [address]- When: Unknown [facility] Evaluation + Plan note Future Appointments Appointment Date:06/08/2022 08:45:00 AM Scheduled Provider: Location:[facility] Appointment Type:Urology CALL PAT FT Appointment Date:06/15/2022 09:00:00 AM Scheduled Provider: Location:[facility] Appointment Type:Urology FT [facility] Evaluation + Plan note Future Appointments Appointment Date:08/23/2022 12:30:00 PM Scheduled Provider:Rufina VALDEZ MD Location:[facility] Appointment Type:URO Office Visit [facility] Evaluation + Plan note Future Appointments Appointment Date:06/06/2023 09:45:00 AM Scheduled Provider:Rufina VALDEZ MD [facility] Type:[facility]O Office Visit Diagnostic Tests PendingProstate Histology ([facility]) 05/17/23 [facility] Evaluation + Plan note Future Appointments Appointment Date:12/09/2023 10:45:00 AM Scheduled Provider:Rufina VALDEZ MD Location:[facility] Appointment Type:URO Office Visit Diagnostic Tests PendingPSA Total 06/06/23 [facility] GI Track Evaluation + Plan note Future Appointments Appointment Date:05/21/2024 11:30:00 AM Scheduled Provider:Rufina VALDEZ MD Location:[facility] Appointment Type:URO Office Visit Diagnostic Tests PendingProstate Histology ([facility]) 05/01/24 [facility] Evaluation + Plan note [facility] GI Track Evaluation note No Assessments Infor mation [facility] Evaluation note Diagnosis Screening for genitourinary condition Screening for other and unspecified genitourinary condition [facility] Diagnosis Malignant neoplasm of prostate (HCC)- Primary Malignant neoplasm of prostate documented in this encounter [facility] note* Diagnosis Prostate cancer (HCC)- Primary Malignant neoplasm of prostate documented in this encounter [facility] note* Diagnosis Malignant neoplasm of prostate (HCC)- Primary Malignant neoplasm of prostate [facility] N[facility] No data available for this section [facility] Hospital Discharge instructions No data available for this section [facility] No data available for this section [facility] GI Track reason for referral (narrative) Referred by: Rufina VALDEZ MD [facility] GI Track Summary Purpose Family History No Family History [...] section and content) DATE CREATED AUTHOR 04/01/2021 [facility] [place] [facility] DATE CREATED AUTHOR AUTHOR'S ORGANIZ ATION 04/13/2023 [facility] DATE CREATED AUTHOR AUTHOR'S ORGANIZ ATION 02/29/2024 [facility] EP[facility] DATE CREATED AUTHOR AUTHOR'S ORGANIZ ATION 05/18/2024 [facility] DATE CREATED AUTHOR AUTHOR'S ORGANIZ ATION 05/22/2024 [facility] DATE CREATED AUTHOR AUTHOR'S ORGANIZ ATION 07/14/2024 [facility] Care Team (unrecognized sect ion and content) Loading Manager Relationship Specialty Start Date End Date Curt De Dios MD [address] [place] [id number] PCP - General Family Medicine 11/11/23 Kathie Sánchez, COUNTER CONTROL OPERATOR [address] [place] [phone] Nurse Practitioner Family Medicine 10/03/23 Loading Manager Relationship Specialty Start Date End Date Peter Arceo DO PCP - General Family Medicine 05/11/13 Loading Manager Relationship Specialty Start Date End Date Kathie Sánchez AIRCRAFT MAINTENANCE INSTRUCTOR [address], [place] [id number] PCP - General Family Medicine 06/21/24 Loading Manager Relationship Specialty Start Date End Date Peter Arceo DO PCP - General Family Medicine 05/11/13 06/20/24 Loading Manager Relationship Specialty Start Date End Date RichKathie lynch Jessika, AIRCRAFT MAINTENANCE INSTRUCTOR [address] [place] [address] PCP - General Family Medicine 06/21/24 Source Comments (unrecognize d section and content) In the event this informatio n is protected by the Federal Confidentiality of Alcohol and Drug Abuse Patient Records regulations: The Federal rules restrict any use of the information to criminally investigate or prosecute any alcohol or drug abuse patient.[facility] the event this information is protected by the Federal Confidentiality of Alcohol and Drug Abuse Patient Records regulations: The Federal rules restrict any use of the information to criminally investigate or prosecute any alcohol or drug abuse patient.[facility] the event this information is protected by the Federal Confidentiality of Alcohol and Drug Abuse Patient Records regulations: The Federal rules restrict any use of the information to criminally investigate or prosecute any alcohol or drug abuse patient.[facility] the event this information is protected by the Federal Confidentiality of Alcohol and Drug Abuse Patient Records regulations: The Federal rules restrict any use of the information to criminally investigate or prosecute any alcohol or drug abuse patient.[facility] Reason for Visit (unrecogniz ed section and content) Reason Comments Consult Reason Comments New Patient Elevated PSA Reason Comments Prostate Cancer FOR RECORDS PERTAINING TO PATIENTS WHO ARE [...] BE BASED ON THE PRIMARY CLINICAL RECORDS. [employer] [facility]. provides no warranty or guarantee of the accuracy or completeness of information in this document.
== END 2024-09-07 09:54 | disposition home or self-care (01) ==
PROVIDERS: PCP Nurse Practitioner; Visit Provider Radiology Radiation Oncology
DX: C61 Malignant neoplasm of prostate (principal)
CPT/HCPCS: 36415; 84153

== ENCOUNTER 2024-09-14 09:23 | Outpatient (OUT) | payer MEDICARE, MEDICAID, SELFPAY ==
--- OUTSIDE RECORDS SUMMARY | 2024-09-14 09:27 | XMS_ITS | CCD ---
[facility] Care Team Providers Care Staff Command And Control Officer Name Role Phone Bryan Quick Attending Provider KATHIE SÁNCHEZ Primary Care Physician [phone] AICHHOLZ, TUFTING MACHINE OPERATOR KATHIE Primary Care Unavailable DR LEONOR MA Consulting Unavailable SAMSA ., ROBERTO Admitting Unavailable SAMSA ., ROBERTO Attending Unavailable SAMSA ., ROBERTO Consulting Unavailable AICHHOLZ, TUFTING MACHINE OPERATOR KATHIE Admitting Unavailable AICHHOLZ, TUFTING MACHINE OPERATOR KATHIE Attending Unavailable AICHHOLZ, TUFTING MACHINE OPERATOR KATHIE Consulting Unavailable AICHHOLZ, TUFTING MACHINE OPERATOR KATHIE Primary Care Unavailable AICHHOLZ, TUFTING MACHINE OPERATOR KATHIE Admitting Unavailable AICHHOLZ, TUFTING MACHINE OPERATOR KATHIE Primary Care Unavailable AICHHOLZ, TUFTING MACHINE OPERATOR KATHIE Attending Unavailable AICHHOLZ, TUFTING MACHINE OPERATOR KATHIE Consulting Unavailable AICHHOLZ, TUFTING MACHINE OPERATOR KATHIE Primary Care Unavailable DR LEONOR MA Consulting Unavailable SAMSA ., ROBERTO Admitting Unavailable SAMSA ., ROBERTO Attending Unavailable SAMSA ., ROBERTO Consulting Unavailable DR LEONOR MA Consulting Unavailable SAMSA ., ROBERTO Admitting Unavailable SAMSA ., ROBERTO Attending Unavailable SAMSA ., ROBERTO Consulting Unavailable DR ELSA NOBLE Admitting Unavailable DR OK CISNEROS V Consulting Unavailable AICHHOLZ, TUFTING MACHINE OPERATOR KATHIE Primary Care Unavailable DR ELSA NOBLE Attending Unavailable DR ELSA NOBLE Consulting Unavailable SAMSA ., ROBERTO Admitting Unavailable AICHHOLZ, TUFTING MACHINE OPERATOR KATHIE Primary Care Unavailable SAMSA ., ROBERTO Attending Unavailable SAMSA ., ROBERTO Consulting Unavailable SAMSA ., ROBERTO Admitting Unavailable AICHHOLZ, TUFTING MACHINE OPERATOR KATHIE Primary Care Unavailable DR LEONOR MA Consulting Unavailable SAMSA ., ROBERTO Attending Unavailable SAMSA ., ROBERTO Consulting Unavailable Aichholz HOSPITALITY RECRUITER, Kathie Unavailable Lanre CHANDLER, Curt Primary Care Provider [phone] KATHIE SÁNCHEZ Attending Unavailable Rufina VALDEZ Attending Unavailable Rufina VALDEZ Attending Unavailable DIONY, Rufina Reina Attending Unavailable Rufina VALDEZ Attending Unavailable Rufina VALDEZ Admitting Unavailable DIONY, Rufina Reina Referring Unavailable Rufina VALDEZ Attending Unavailable Arceo DO, Peter Cruz Primary Care Provider Princess TUFTING MACHINE OPERATOR, Kathie Rosen Primary Care Provider Arceo DO, Peter Cruz Primary Care Provider Princess HOSPITALITY RECRUITER, Kathie Unavailable Princess HOSPITALITY RECRUITER, Kathie Unavailable Curt De Dios MD Primary Care Provider Princess HOSPITALITY RECRUITER, Kathie Unavailable AMANDEEP CRISOSTOMO Attending Unavailable PETER ARCEO Primary Care Unavailab Severo Nice Referring Unavailable KATHIE SÁNCHEZ Primary Care Unavailable PRINCESS, KATHIE ROSEN Primary Care Unavailable Severo FRENCH Attending Unavailable KATHIE SÁNCHEZ Primary Care Unavailable Severo FRENCH Attending Unavailable Severo FRENCH Attending Unavailable PETER ARCEO Primary Care Unavailab RUFINA Man Referring Unavailable Allergies Allergy Classification Reported Allergen(s) Allergy Type Date of Onset Reaction(s) Facility (1 source) No Known Medication Allergies; Translations: [No Known Medication Allergies] Propensity to adverse reactions (disorder) [facility] Repository Medications Current Medications Medication Drug Class(es) Dates Sig (Normalized) Sig (Original) Albuterol (7 sources) beta2-Adrenergic Agonist ALBUTER OL SULFATE (PROVENTIL HFA INHALATION) Inhale as instructed. Active take 2 puff(s) by in halation every four hours for wheezing albuterol HFA 90 mcg/act inhaler Inhale 2 puffs every 4 (four) hours if needed for wheezing Active ALBUTEROL SULFAT E (PROVENTIL HFA INHALATION) Inhale as instructed. 0 Active amoxicillin 500 mg oral tablet (1 source) Penicillin-class Antibacterial Start: 06-24-2023 take 4 tablets by mouth once at mealtime amoxicillin (Amoxil) 500 MG tablet Indications: History of hip replacement, unspecified laterality 4 tabs PO once 30-60 mins before procedure with food 4 tablet 3 06/24/2023 Active aspirin 81 mg delayed release oral tablet (15 sources) Platelet Aggregation Inhibitor, Nonsteroidal Anti-inflammatory Drug [...] Start Date: 05/17/22 Status: Ordered Mike Alvarez (13 sources) Non-narcotic Antitussive Start: 08-05-2022 Malou Alvarez Oral, q12hr, PRN Cough Start Date: 08/05/22 Status: Ordered take 1 capsule by [facility] three times daily as needed for cough Benzonatate 200 mg capsule take 1 capsul e by mouth 3 times a day as needed for cough Active Budesonide / formoterol (7 sources) Corticosteroid, beta2-Adrenergic Agonist take 2 puff(s) by mouth twice daily budesonide-formoterol (SYMBICORT) 160-4.5 mcg/actuation inhaler INHALE 2 PUFFS INTO THE LUNGS TWICE A DAY FOR 90 DAYS *RINSE MOUTH AFTER USE* Active take 2 puff(s) by in halation in the morning budesonide-formoterol (Symbicort) 160-4. 5 MCG/ACT inhaler Inhale 2 puffs in the morning and 2 puffs before bedtime. Rinse mouth with water after use to reduce aftertaste and incidence of candidiasis. Do not swallow.. Active take 2 puff(s) by mouth twice da sujit budesonide-formoterol (SYMBICORT) 160-4.5 mcg/actuation inhaler INHALE 2 PUFFS INTO THE LUNGS TWICE A DAY FOR 90 DAYS *RINSE MOUTH AFTER USE* 0 Active budesonide-formoterol 160 mcg-4.5 mcg/inh Inh Aer w/adapter (8 sources) Start: 05-17-2022 take 2 puff(s) by inhalation twice daily budesonide-formoterol 160 mcg-4.5 mcg/inh Inh Aer w/adapter 2 puff(s), Inhalation, BID, Refill(s) 0 Start Date: 05/17/22 Status: Ordered Start: 05-17-2022 budesonide-for moterol 160 mcg-4.5 mcg/inh Inh Aer w/adapter Refill(s) 0 Start Date: 05/17/22 Status: Ordered cycloSPORINE 0.5 mg/ml ophthalmic suspension (5 sources) Calcineurin Inhibitor Immunosuppressant Start: 05-14-2024 take 1 drop(s) into the eye(s) twice daily RESTASIS 0.05 % ophthalmic emulsion APPLY ONE DROP IN BOTH EYES 2 TIMES A DAY. 05/14/2024 Active 24 hr dilTIAZem hydrochloride 180 mg extended release oral capsule (15 sources) Calcium Channel Torres Start: 07-16-2024 End: 10-14-2024 take 1 capsule by mouth once daily dilTIAZem XR (Dilacor XR) 180 MG 24 hr capsule Indications: Atrial fibrillation (CMS/HCC) Take 1 capsule (180 mg) by mouth Daily 90 capsule 1 07/16/2024 10/14/2024 Active Start: 05-17-2022 take 1 capsule by [facility] once daily Dilt-XR 180 mg/24 hours oral capsule, extended release 180 mg = 1 cap(s), Oral, Daily, Refills(s) 0 Start Date: 05/17/22 Status: Ordered Start: 05-17-2022 Dilt-XR 180 mg /24 hours oral capsule, extended release Refills(s) 0 Start Date: 05/17/22 Status: Ordered take 1 capsule by [facility] every twenty-four hours in the morning dilTIAZem XR (Dilacor XR) 180 MG 24 hr capsule Take 180 mg by mouth in the morning. 0 Active doxycycline hyclate 100 mg oral tablet (5 sources) Tetracycline-class Drug Start: 05-16-2013 take 1 tablet by mouth twice daily doxycycline 100 mg tablet Take 1 tablet by mouth twice daily. 14 tablet 0 05/16/2013 Active fluticasone / salmeterol (5 sources) Corticosteroid, beta2-Adrenergic Agonist take 1 puff(s) by inhalation twice daily fluticasone-salm eterol (ADVAIR DISKUS) 250-50 mcg/dose DsDv Inhale 1 Puff as instructed twice daily. Active take 1 puff(s) by in halation twice daily fluticasone-salmeterol (ADVAIR DISKUS) 2 50-50 mcg/dose DsDv Inhale 1 Puff as instructed twice daily. 0 Active 12 hr guaiFENesin 600 mg extended release oral tablet (7 sources) guaiFENesin (MUC INEX) 600 mg 12 hr tablet Take 1,200 mg by mouth. Active Ibuprofen (7 sources) Nonsteroidal Anti-inflammatory Drug IBUPROFEN (ADVIL ORAL) Take by mouth. Active take 1 tablet by dominique th every six hours as needed for pain ibuprofen 800 MG tablet Take 800 mg by mouth every 6 (six) hours if needed for mild pain Active IBUPROFEN (ADVIL ORAL) Take by mouth. 0 Active pantoprazole 40 mg delayed release oral tablet (13 sources) Proton Pump Inhibitor Start: 08-05-2022 take 1 dose by mouth once daily Start: 05-30-2019 End: 08-26-[address] (PROTONIX) 4 0 mg tablet Take 40 mg by mouth. 05/30/2019 Active predniSONE 10 mg oral tablet (10 sources) Start: 01-02-2024 predniSONE (DE LTASONE) 10 mg tablet Refills(s) 0 01/02/2024 Active Start: 01-02-2024 predniSONE 10 mg Tab Refills(s) 0 Start Date: 01/02/24 Status: Ordered Start: 05-16-2013 predniSONE 20 mg tablet Take 2 pills daily x 3 days 6 tablet 0 05/16/2013 Active Roflumilast (17 sources) Phosphodiesterase 4 Inhibitor Start: 01-02-2024 Roflumilast [...] Take 500 mcg by mouth once daily. Active sodium chloride 9 mg/ml inhalation solution (2 sources) sodium chloride 0.9 % nebulizer solution Take 3 mL by nebulization if needed for wheezing Active Sodium Phosphate, Dibasic / Sodium Phosphate, Monobasic (1 source) Start: 4 Fleet Enema 133 mL, Rectal, Once, 133 mL, Refill(s) 0, [facility]/pharmacy #[id number], 175, cm, 01/02/24 12:45:00 EST, Height/Length Dosing, 63.1, kg, 01/02/24 12:45:00 EST, Weight Dosing Start Date: 04/17/24 Status: Ordered 60 actuat tiotropium 0.0025 mg/actuat inhalation spray (15 sources) Anticholinergic Start: 2 take 1 puff(s) [...] Inhale 18 mcg as instructed once daily. Active take 2 puff(s) by in halation in the morning tiotropium (Spiriva Respimat) 2.5 MCG/ACT inhaler Inhale 2 puffs in the morning. Active Ventolin HFA 90 mcg/inh Aerosol-Adpt (8 [...] Date Documented Da te Episodic/Chronic Alcohol-related disorders (7 sources) Alcohol dependence, uncomplicated; Translations: [Alcoholism] Onset: 3 05-16-2013 Chronic Anxiety disorders (1 source) Anxiety disorder; Translations: [Anxiety disorder, unspecified] Onset: 7 02-28-2024 Chronic Aortic; peripheral; and visceral artery aneurysms (1 source) Abdominal aortic aneurysm without rupture; Translations: [Abdominal aortic aneurysm (AAA) without rupture] Onset: 4 04-10-2024 Chronic Cancer of prostate (13 sources) Malignant neoplasm of prostate; Translations: [Malignant tumor of prostate] Onset: 3 Chronic Cardiac dysrhythmias (2 sources) Atrial fibrillation; Translations: [Unspecified atrial fibrillation] Onset: 3 11-12-2023 Chronic Chronic obstructive pulmonary disease and bronchiectasis (8 sources) Emphysema, unspecified; Translations: [Chronic obstructive lung disease] Onset: 3 05-16-2013 Chronic Disorders of lipid metabolism (1 source) Mixed hyperlipidemia; Translations: [Mixed hyperlipidemia] Onset: 4 02-28-2024 Chronic Esophageal disorders (10 sources) Gastroesophageal reflux disease; Translations: [Gastro-esophageal reflux disease without esophagitis] Onset: 4 04-19-2022 Chronic Gout and other crystal arthropathies (9 sources) Gout; Translations: [Gout, unspecified] Onset: 4 04-19-2022 Chronic Osteoarthritis (9 sources) Arthritis; Translations: [Osteoarthritis of left hip joint] Onset: 7 04-19-2022 Chronic Other gastrointestinal disorders (8 sources) Scrotal mass 04-19-2022 Episodic Other nervous system disorders (9 sources) Neuropathy; Translations: [Polyneuropathy, unspecified] Onset: 4 04-19-2022 Chronic Other nervous system disorders (2 sources) Carpal tunnel syndrome of right wrist; Translations: [...] 04-19-2022 Episodic Respiratory failure; insufficiency; arrest (adult) (9 sources) Chronic hypoxemic respiratory failure; Translations: [Chronic respiratory failure with hypoxia] Onset: 04-19-2022 Chronic Unclassified (8 sources) Patient encounter status 05-17-2022 Unclassified (8 sources) Sebaceous cyst of skin 05-17-2022 Unclassified (1 source) COUGH, UNSPECIFIED; Translations: [COUGH, UNSPECIFIED] Onset: 2 Unclassified (1 source) CONTACT W/AND (SUSP) EXPOS COVID-19; Translations: [CONTACT W/AND (SUSP) EXPOS COVID-19] Onset: 2 Past or Other Problems Problem Classification Problem Date Documented Date Episodic/Chronic Mood disorders (1 source) Mood disorders Onset: 02-28-2024 02-28-2024 Other aftercare (1 source) Other vermin exterminator (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 therapy; Translations: [OTH CUSTODIAL CURRENT DRUG THERAPY] Onset: 08-13-2022 Episodic Other [...] [SHORTNESS OF BREATH] Onset: 05-03-2022 Episodic Other lower respiratory disease (1 source) Lung mass; Translations: [Other nonspecific abnormal finding of lung field] Onset: 02-28-2024 02-28-2024 Episodic Other nervous system disorders (5 sources) Impairment of balance; Translations: [Other abnormalities of gait and mobility] Onset: 05-16-2013 05-16-2013 Episodic Other nutritional; endocrine; and metabolic disorders (1 source) Abnormal weight loss; Translations: [ABNORMAL WEIGHT LOSS] Onset: 08-19-2022 Episodic Residual codes; unclassified (5 sources) Tobacco user; Translations: [Tobacco use] Onset: 05-16-2013 05-16-2013 Episodic Screening and history of mental health and substance abuse codes (1 source) Personal history of nicotine dependence; Translations: [PERSONAL HISTORY OF NICOTINE DEPEND] Onset: 08-13-2022 Episodic Spondylosis; intervertebral disc disorders; other back problems (1 source) Lumbar radiculopathy; Translations: [Radiculopathy, lumbar region] Onset: 02-28-2024 02-28-2024 Episodic Substance-related disorders (5 sources) Marijuana user; Translations: [Cannabis use, unspecified, uncomplicated] Onset: 05-16-2013 05-16-2013 Episodic Unclassified (1 source) Onset: 02-28-2024 02-28-2024 Results Test Name Value Interpretation Reference Range Facility [facility] PSA, DIAGNOSTICon 09-07 Interpretation and review of laboratory results Abnormal [facility] PROSTATE SPECIFIC ANTIGEN DX 7.20 ng/mL High NINF - 4.00 ng/mL [facility] CNOVon 07-12-2024 CNOV Office Visit (RADTSA) JINNYMATEO Payan ([id number]) 1960 M Date Time Provider Department 07/12/24 [...] ASSESSMENT/PLAN: Prostate adenocarcinoma, initial PSA 4.46, biopsy Offerle score 3 + 3 = 6 (grade [...] be checked (more content not included)... Normal [facility] CNOVon 06-21-2024 CNOV Office Visit (RADTSA) MATEO STEARNS ([id number]) 1960 M Date Time Provider Department 06/21/24 1:15 PM Severo FRENCH During your visit today, we recorded the following information about you: Temperature Pulse Respiration Blood pressure 97.5 degrees 86/minute 20/minute 124/75 Weight Height 67.8 kg 1.702 m Dayanna Call LPN 06/21/2024 1:50 PM Signed Pacemaker/Defibrilla tor?N Previous Cancer(s)?N Previous Radiation?N Lupus/Scleroderma?N On body monitoring device?N AUA= 5 Severo French MD 06/21/2024 1:50 PM Signed Radiation Oncology - Prostate Cancer New Patient/Consult Note PATIENT NAME: Mateo Stearns PATIENT REQUESTING PROVIDER: Dr. Valdez DIAGNOSIS: 63 year old male with prostate adenocarcinoma, initial PSA 4.46, biopsy Offerle score 3 + 3 = 6 (grade [...] muscle aches (more content not included)... Normal [facility] CNOVon 06-01-2024 CNOV Office Visit (UROLMN) MATEO STEARNS ([id number]) 1960 M Date Time Provider Department 06/01/24 1:45 PM AMANDEEP CRISOSTOMO During your visit today, we recorded the following information about you: Pulse Blood pressure Weight Height 88/minute 138/81 68 kg 1.753 m Amandeep Crisostomo MD 06/24/2024 4:18 PM Signed Referring Provider: Chief Complaint: Recently diagnosed CaP HPI: 63 year old male from [place], [place] with a PMHx of COPD (40 pack-year smoker), Afib (on ASA), and GERD diagnosed with CAP in 05/20 which showed 2 cores of Offerle 6 disease. He has sever COPD with shortness of breath on exertion and O2 saturation in high 80s. He was started on . In , his PSA was 4.22 and his urology decided to repeat a biopsy with 8/18 cores positive for Offerle 6 disease. Past surgical Hx: total hip [...] review Assessment 63 year old male from [place], [place] with a PMHx of COPD (40 pack-year smoker and poor oxygenation status), Afib (on ASA), and GERD diagnosed with CAP in 05/20 which showed 2 cores of Offerle 6 disease. Recently had more + cores on a repeat biopsy and is here (more content not included)... Normal [facility] URINALYSIS, REFLEX MICROSCOP ICon 06-01-2024 Bilirubin Ql (U) Negative Negative [facility] Clarity (Unsp spec) Clear Clear [facility] Color (U) Yellow Yellow [facility] Glucose Test strip (U) [Mass/Vol] Negative Negative [facility] Hemoglobin Ql (U) Negative Negative [facility] Interpretation and review of laboratory results Normal [facility] Ketones Ql (U) Negative Negative [facility] Leukocyte esterase Test strip Ql (U) Negative Negative [facility] Nitrite Ql (U) Negative Negative [facility] pH (U) 5.5 [pH] NINF - 8.5 [facility] Protein (U) [Mass/Vol] Negative Negative [facility] Specific gravity (U) [Rel density] 1.009 1.005 - 1.030 [facility] Urobilinogen Ql (U) 0.2 EU/dL 0.2-1.0 EU/dL [facility] This test was developed and its performance characteristics determined by [facility]'s [facility] ([facility]). It has not been cleared or approved by the FDA. [facility] is regulated under CLIA as qualified to perform high-complexity testing. This test is used for clinical purposes. It should not be regarded as investigational or for research. [facility] Bilirubin Ql (U) Negative Normal Negative [facility] Comment on above: Order Comment: Speci men Type: URINE SPECIMEN Ordering Facility: [facility] Address: [address] [place] [address] Performed By: #### L [id number] #### [facility] CLIA [id number] [address] [place] [address] [place] Clarity (Unsp spec) Clear Normal Clear [facility] Comment on above: Order Comment: Speci men Type: URINE SPECIMEN Ordering Facility: [facility] Address: [address] [place] [address] Performed By: #### L [id number] #### [facility] CLIA [id number] [address] [place] [address] [place] Color (U) Yellow Normal Yellow [facility] Comment on above: Order Comment: Speci men Type: URINE SPECIMEN Ordering Facility: [facility] Address: [address] [place] [address] Performed By: #### L [id number] #### [facility] CLIA [id number] [address] [place] [address] [place] Glucose Test strip (U) [Mass/Vol] Negative Normal Negative [facility] Comment on above: Order Comment: Speci men Type: URINE SPECIMEN Ordering Facility: [facility] Address: [address] [place] [address] Performed By: #### L [id number] #### [facility] CLIA [id number] [address] [place] [address] [place] Hemoglobin Ql (U) Negative Normal Negative [facility] Comment on above: Order Comment: Speci men Type: URINE SPECIMEN Ordering Facility: [facility] Address: [address] [place] [address] Performed By: #### L [id number] #### [facility] CLIA [id number] [address] [place] [address] [place] Ketones Ql (U) Negative Normal Negative [facility] Comment on above: Order Comment: Speci men Type: URINE SPECIMEN Ordering Facility: [facility] Address: [address] [place] [address] Performed By: #### L [id number] #### [facility] CLIA [id number] [address] [place] [address] [place] Leukocyte esterase Test strip Ql (U) Negative Normal Negative [facility] Comment on above: Order Comment: Speci men Type: URINE SPECIMEN Ordering Facility: [facility] Address: [address] [place] [address] Performed By: #### L [id number] #### [facility] CLIA [id number] [address] [place] [address] [place] Nitrite Ql (U) Negative Normal Negative [facility] Comment on above: Order Comment: Speci men Type: URINE SPECIMEN Ordering Facility: [facility] Address: [address] [place] [address] Performed By: #### L [id number] #### [facility] CLIA [id number] [address] [place] [address] [place] pH (U) 5.5 [pH] Normal <8.5 [facility] Comment on above: Order Comment: Speci men Type: URINE SPECIMEN Ordering Facility: [facility] Address: [address] [place] [address] Performed By: #### L [id number] #### [facility] CLIA [id number] [address] [place] [address] [place] Protein (U) [Mass/Vol] Negative Normal Negative [facility] Comment on above: Order Comment: Speci men Type: URINE SPECIMEN Ordering Facility: [facility] Address: [address] [place] [address] Performed By: #### L [id number] #### [facility] CLIA [id number] [address] [place] [address] [place] Specific gravity (U) [Rel density] 1.009 Normal 1.005-1.030 [facility] Comment on above: Order Comment: Speci men Type: URINE SPECIMEN Ordering Facility: [facility] Address: [address] [place] [address] Performed By: #### L [id number] #### [facility] CLIA [id number] [address] [place] [address] [place] Urobilinogen Ql (U) 0.2 EU/dL Normal 0.2-1.0 EU/dL [facility] Comment on above: Order Comment: Speci men Type: URINE SPECIMEN Ordering Facility: [facility] Address: [address] [place] [address] Performed By: #### L [id number] #### [facility] CLIA [id number] [address] [place] [address] [place] Ambulatory Visit Summaryon 0 05-21-2024 Ambulatory Visit Summary MATEO STEARNS :1960 Visit Date:05/21/2024 Ambulatory Visit Instructions Your Diagnosis Prostate cancer Sebaceous cyst Your Care Team Attending Physician - Rufina [...] Following Appointments Follow Up with DIONY CHANDLER, Rufina Reina, URL When: Where: [facility] [address] , [place] [address]- [phone] Someone Will Contact You Regarding These Appointments [facility] External Ambulatory Referral, Other (needs to be [...] often, espec (more content not included)... Normal [facility] Patient Educationon 05-21-20 Patient Education [...] under a microscope. This is called the Offerle score and the total score can range [...] be (more content not included)... Normal [facility] Urology Office/Clinic Noteon 05-21-2024 Urology [...] of prostate cancer. S/p TRUS/bx 05/17/23 - Offerle score 6 (3+3) in 2 cores, each one is less than 10%. 2 HGPINs. S/p TRUS/bx 05/01/24 - Offerle 6 (3+3) in 9/12 cores. 30% core [...] Rufina Reina, URL [facility] [address], [place] [address]- [phone] Additional Instructions: referral to [facility] to discuss [...] Recorded zoste (more content not included)... Normal [facility] Comment on above: Result Comment: Elec tronically Signed By: Rufina VALDEZ MD\.br\Date and Time Signed: 05/21/24 12:44 EDT\.br\Electronically Co-Signed By: Vesta Cortes\.br\Date and Time Co-Signed: 05/21/24 12:43 EDT Coding Summary.on 05-17-2024 Coding Summary. DOGULddo03VKg1uPu+PG hlYWQ+XU3AWSKvJ68tcX AahA9yJ3AMFWiJSisnXP FTADdGAzRhhaBpAD2cyI NjZXJu IC8+CY9eGPYfIqqgyOJg a9V4kAV4Z21vkn5yUOha vUU9ROZdDqZrwqgye7fz bOc4YTgqMnnxZuVe POWygJ74SIL8iK55Jj50 bCNmoLEhk7finDo3KcHd FFObDWG4gRmlLSzcx1In SFWhO39uwQCry3E0 IGNvbGxhcHNlOyBlbXB0 eO7hZFuevpevw3wduhka Ixu2oi82oDHuk0R7kME1 T3GvjeF4LABmiCOv MpctqQBJaF1krkbme8ux clokUcOdIFToTWn4JFu3 KPLwgBvvLjRxPH27GQR9 SFCcguIsN8NkZNHp kNzpXoA7c9G1Bn4SY7QP FatnX4VSBXRYQBwvoLT+ AS59kw33X5JzSmjhCcq1 PLViBNO7tJM7aH6p TKAxOSeoa6Y0aRV8U6Xl jyMxlh6lj1pzXWVcFSsp W07kaDByl8G1GSNhjOD3 LXFazIasArQpdG92 Oyc+DSIvrFndm5MwDncp p4mal3vqsNt5XrvwEJLa ckYjlNehRPM1i5TuLh2y QFVkaZA1gBJ5aC7z AlEcTrQ9KSrbJ007FqAh fKJoGiqlS92hK9BhnYL+ ZSAdUfd1RCVaqKlhKK3b K7BpDLKkrmsaeJCp kKgcII5bIJUjpvrhBVCv tB1iBWWqB8t4QkTiUeX8 DFfkB1NnKDHaftmaEq89 oU1fYvFsFdP7IIdc U8TupyR3DUIcdWWyHCsd QIF7Q99kn4C2EGXdMHMi JVM9iNX0hT2axHphzbxf bGVmdDsgdmVydGlj QTsaRIkmF154YCImvMxo PkNvZGluZyBEYXRlOiAg MDYvMjAvMjAyNDwvdGQ+ SIAcYAO0mIfpKEVj zVXgVTvnKz9cvFtubDap PW5jBIDocuflKDEaoO4t UJPkaUMrjHdqJV9hJYWm fmlte215IwZeCKX1 YBAbtHHqP3VluB2aFuTl YEUcJVLlG6LvxHInFXnx L679DCqtXwW2UHSjvfRs W9OpSHSiaVxxWcZ4 p2H0Ok4Kp2ImtuukP8Xr kJVfCqIuIvhmIOv6P2Sy PjwvdHI+UA82HCQmUJ95 RIj6HHM2rPboUNhl JMYuB4PrmE2iNbXlJRJj ZGRkOyc+PHRhYmxlIHdp ZHRoPScxMDAlJyBzdHls KJ5vWn1lGNZyUOWh mYyhoJGkUaTke0ajKRLx OCoaQB2fnUjmG1BlqPR1 ZHOir1v7Rs57F46lJ6Rd dXA+HFDdpMR2jVE3 uV8vVgBaBiV5RPymE614 WbBepSOtAwvwu4etg5xh zHz4OfY5AYJyjkLwcBtb ZFR9w0XvZo60O34a IHdpZHRoPSIxNSUiIHZh vIdexn0zcJ3mIt9+PGNv iQV9pHU8sM5dJlVnKcC1 QRejA567LmUvpMTc Vwdox9oua3jpfJo4GoDf JVWxfiWxnKjdWNR4h4Hd Ye81C8DfuFjes9DoNia6 hz77iYFkr5D8fNJ2 X6EtZJSkzaypgLMcaJds OO1pZXBpxkyiXFKqkI1r PSLuN1x2EqUjTuU4XQid A2WrkiU4BLMueRXi DYAncJZFrF5rmxoul5vc swgoIjBhBHPuDSf1OJc9 QLIlxUkbDzDfJEN7McH1 VPL0eZTdsH2qgXto ecjzvH1eAgn+EAE4zOAd tJUDLA7kTgoywMN+PHRk WFA1cUtcBUbaTOGjcL7o QYEgH7b3RoAhArT1 INjvK8LnwhJ0DHHvqQDz WOMitRWIgQ1zgavjv8tu vgakNxPkYEKsJJa1XCi8 LWFsaWduOiBsZWZ0 AeW9IFL6dBOnwD6acWrq wemwuN1fOwb+QmlydGgg YUO4AJj9R2QwHju1RSHk qJrxSD5lbGGoKCax Ol4gxCvltJysGZ5xVGBy yijme020EiWih7usONUf kNYjGAhyPQZ6T96pp4R9 HFUbNMQrWRY4mIH7 lC9alOrqnreieULysHan euBqrDqdWRjuSDvqW249 NWGvvGwhGnMkYWq5O0Mp Czt4SUWnnJdvQD8p tPDmAOetIf3pgJsncBmb JA2lHNWscxzfa506NyVo v7sePTNcdIEyYMfsOJQ5 J80gj8N2COUzRKFt OXE7jUN4aD6kbNktndhy bGVmdDsgdmVydGljYWwt VTdzG636AOPmaRjhDzOb eNe2Z2FrHen4PDMu yWlwES1izJXiPEekRu8v uRyhmGyeVG5nFKPxuflo v380IiWwu0vbDMFksILj FLubOGG9W89oc8S4 UKAhNRHbWVI5jMT6iZ8j bGlnbjogbGVmdDsgdmVy lWtpQMncSJxwF743ZECh cDsnPlBhdGllbnQg ILwqXYa0S3DyQmxtaEQ+ ZW07UABvVK14hCXgbLSk l2tioAx2KhUkZEWsTXL7 fWsoYBxam5FaXGHy W58ppZSuk0V3CVWhlNeq xKRqIgAekRF5qZ4bZMfo lfgyx6uhciswEdbiz0zi is08hA04K16qWVvy ZHRoPSIzMCUiIHZhbGln ps0bsV6eCz3+PGNvbCB3 bRD9lU7iNLJaFnW5CPtz Y467CwUoiAIsMbfh z0jiq6mjzAq7AeS7POYw vfEsuMjvIMT1s6YjIl68 B64cSFmtOADoUOSsJEYn AVSivItwrd9vvG3v Ii8+CLXhyWI5rTL3uF2s YwKdQcJ1XCumT038HkJv fVWfStzpB17xK1EcmWG+ XFGkEsw1GMAjvMle BX8muYPdVKzhUw4rBYW2 NiKyEpKrEXjgX3EeFTVi iibwlgafnON2FYYhXDDi wP60Bq2sfOupWVPx sWLMxM3gqckyo5nrivrp SkOhFAHkDVp9GNd0EIHb qRfrAaKkETB0XsO2HLO2 xHOqwQ8huMudxtbp wC7rY9KcUIVbxhsyJp11 yS1sTpVeQfK7GVnpHmk+ BK0FXAoyK4rXSAVRF2XA RVIgVzwvdGQ+PHRk YTF9qDnwXLjlIKNpgA2s IATxZ8o2NcWaFsI8PZvr U2GhGZLrinfwTf84dR6q WuPsQfG0WJgnW6Tc leG9DCMoiSSaVPrdGCT6 G20tk8N1UZEwRFUlSAA4 fIC1cK5upPpjsoyybXAs dDsgdmVydGljYWwt OSgdP367OQKpiQpnUsB7 MeF0ThS1TZa6V7IyLdt4 ZCUcmIguRW5agVKeXYpr Xt6fjUeyaCnuXF7j FZVwuobbHRRvnZ7yQATg uIGepIfzAD9uJSFlrvye r244VrKnPVX1STInsMRk I2UikK0yZwYkAFXu OSFlB0OcmGTwOWofA166 XEzhMhH6YHXxedRnB6Ss IKCaaWopDsY2n1N8Ir24 NSBZZWFyczwvdGQ+ ONYxTOC0aLqaSZklSLVw hJ4pYYPlN4n4CmDwDmC5 WFomZ5WlXZHysondLw08 hC3bCiBgQoW6WAbs L8XmaeM2MLZtxRSjXFux ECQ1E15ky0U7EKCuBFWz RZX6yDR7nJ8euIvhqcgp bGVmdDsgdmVydGlj ZQxyLUsdB296TMNxsKtr Qt5wzOJ9J3PrJzx8UNKd iCkyEU2neFRaIBheZt2i aHlztXzhNH4hPIPq enjfJVSqkR7lAVTioVGb uWraOB1eTBLhthvmq227 AtIjTSB8EGUpnJIsL3Uc fE0nRvWbZKWsXDHi G3RrvBEnVJcfE843JFwv RuM0PEWkpfDjQ6ZkXWFj rAckTjK6i8O2Xx8BsHGb RVLaVR78VO45UA93 A0JrRsiuxPUhqFF+PHRh YmxlIHdpZHRoPScxMDAl GhWboOkcPX0qZc4zWDTl LWNvbGxhcHNlOiBj n3rmFYZtQEthPM1coHil V3LriJI6IRSyx4z2Ui19 F45rZ4ReiDC+PGNvbCB3 dCC9lP3eBiLoSpK5 LQkxA961FzEvdVCiFakz d1eud9lidXw7CiChPLYr bzNkdSynZEP8p1PyOu73 U02hHFydGKCpWGSt IUUoWVZsmPnfdo8teL9h Ii8+KXAsxGS5jZJ5wN4t MwGdAuE2FIpaU106WyUy uUBvEuanI59zZ8Uv dXA+NVYiBfn6KSOsjQwd WO0uyJRpMXgpUh0vKZG8 TeDuHiVlVRuiI2ZhKYBn xrfbaskpaQW7NAHz VBXmnC81Dn1yqFkzDc8t CZElKIV5DCEwbZFcZ8Qh iL2wGnUoKRUpCXJgN0To aRLjVOuaO636DYlj EzR3BHHjfuNiB9GvCRJl lKwdYhR6v0J6Ty7LdSlz bGAfEB8oOkMvIBl8J7Ig Fip7LAXbbVqoCW3s kMKlYXtpRm2zpZuahWwo QM6vWMRvbtvru588JgJq m4xxTROyiEIeIGfjSJN6 M24pe3V6LRXiLGUj ZDX5rCH1yD6iiLjtulga bGVmdDsgdmVydGljYWwt BIfvP682WOGbpYidRaJR Gbs1P5AtUqo1ABHk eLjzAN5wzJSpGVgwQb3h mFeitQetGE4dRKKcrdqt u157RhGxd6ylKKOnsLLx MCyvVRA8O37mb5M5 AFNpJVCdRGX4tIT5oZ5p bGlnbjogbGVmdDsgdmVy eDinLDvxNFtrJ637FKJc rNdzNo2PZge7K3Oz Fwc8DCHttFonWE8tgTMy DEyfCh8miQgxgLejXB6x ZYCjqlxsd991PaBrd1fx IDEwcHQgVGltZXM7 V27ak1L5OVRiCIJoPZZ5 gCI9mO9wkWpfmnkkhNQd dDsgdmVydGljYWwtYWxp T579OMRimLalKlFb eWVyOjwvdGQ+MY27ev27 J5BbCrwgOva2KFOiXCH3 pGC1aF9gTHDrSMhgp6O8 hYI5D0CqgpLhxr6v z2yyJVNvVIgiR (more content not included)... Normal [facility] Prostate Histology ([facility]) on 05-16-2024 Prostate Histology Diagnosis Info Invalid Interpretation Code [facility] Comment on above: Order Comment: left base x 3 bites Left lateral mid x 3 bites Left apex x 4 bites Result Comment: A:Pr ostate,Left Lateral Base:Needle Biopsy Interpretation - - Acinar adenocarcinoma of prostate; Offerle score 6(3+3); Tumor measures 0.6 cm in length; 30% of the core involved by tumor; 1 of 1 core involved; Perineural invasion not identified. MicroScopic Description - B:Prostate,Left Base:Needle Biopsy Interpretation - - Benign prostatic tissue. MicroScopic Description - C:Prostate,Left Lateral Mid:Needle Biopsy Interpretation - - Acinar adenocarcinoma of prostate; Offerle score 6(3+3); Tumor measures 0.1 cm in [...] not identified. MicroScopic Description - E:Prostate,Left Lateral [place]:Needle Biopsy Interpretation - - Atypical glands suspicious but not diagnostic for adenocarcinoma. MicroScopic Description - F:Prostate,Left [place]:Needle Biopsy Interpretation - - Benign prostatic tissue. MicroScopic Description - G:Prostate,Right Base:Needle Biopsy Interpretation - - Benign prostatic tissue. MicroScopic Description - H:Prostate,Right Lateral Base:Needle Biopsy Interpretation - - Benign prostatic tissue. MicroScopic Description - I:Prostate,Right Mid:Needle Biopsy Interpretation - - Benign prostatic tissue. MicroScopic Description - J:Prostate,Right Lateral Mid:Needle Biopsy Interpretation - - Benign prostatic tissue. MicroScopic Description - K:Prostate,Right [place]:Needle Biopsy Interpretation - - Benign prostatic tissue. MicroScopic Description - L:Prostate,Right Lateral [place]:Needle Biopsy Interpretation - - Benign prostatic tissue. MicroScopic Description - M:Prostate,Left Base:Needle Biopsy Interpretation - - Acinar adenocarcinoma of prostate; Brenden score 6(3+3); Tumor measures 0.2 cm in length; 9% of the core involved by tumor; 1 of 1 core involved; Perineural invasion not identified. MicroScopic Description - N:Prostate,Left Base:Needle Biopsy Interpretation - - Acinar adenocarcinoma of prostate; Offerle score 6(3+3); Tumor measures 0.4 cm in length; 16% of the core involved by tumor; 2 of 3 cores involved; Perineural invasion not identified. MicroScopic Description - O:Prostate,Left Lateral Mid:Needle Biopsy Interpretation - - Acinar adenocarcinoma of prostate; Offerle score 6(3+3); Tumor measures 0.1 cm in [...] invasion not identified. MicroScopic Description - Q:Prostate,Left [place]:Needle Biopsy Interpretation - - Acinar adenocarcinoma of prostate; Brenden score 6(3+3); Tumor measures 0.1 cm in length; 3% of the core involved by tumor; 1 of 2 cores involved; MicroScopic Description - R:Prostate,Left [place]:Needle Biopsy Interpretation - - Benign prostatic tissue. [...] on: 05/16/2024 11:46:32 Performed By: #### 1 [id number] #### [facility] [address] [place] [address] Consent for Procedure/Surger yon 05-01-2024 Consent for Procedure/Surgery [id number] #1.00TIFF Normal [facility] Consent for Treatmenton 06-0 Consent for Treatment [id number] #1.00TIFF Normal [facility] IntraOperative Documentson 0 05-01-2024 IntraOperative Documents [id number] #1.00TIFF Normal [facility] Main OR Intraoperative Recor don 05-01-2024 Main OR Intraoperative Record IntraOp Document Type FTURO Summary Primary Physician: Rufina VALDEZ MD Finalized Date/Time: 05/01/24 12:17:31 Pt. Name: MATEO STEARNS/Sex: 1960 Male Med Rec #: [id number] Physician: Rufina VALDEZ MD Financial #: [id number] Pt. Type: O Room/Bed: / Admit/Disch: 05/01/24 [...] Diana Whitlock Role Performed Surgeon - Primary Director Of User Experience - Primary Scrub - Primary Time In [...] Position Verified Availability Equipment, Medication Time Out Rufina VALDEZ MD, Verified (If Participants Gila MCLEAN, Mara Applicable) Oswaldo Corey CST, Kimberly A Time Out Complete 05/01/24 11:35:00 Allergies Reviewed? [...] By: Mara Wong RN 05/01/24 12:17 Normal [facility] Main OR Preoperative Recordo n 05-01-2024 Main OR Preoperative Record Holding Area Document Type FTURO Summary Primary Physician: Rufina VALDEZ MD Finalized Date/Time: 05/01/24 11:27:32 Pt. Name: JOSE ANGEL STEARNSHEMA Strickland./Sex: 1960 Male Med Rec #: [id number] Physician: Rufina VALDEZ MD Financial #: [id number] Pt. Type: O Room/Bed: / Admit/Disch: 05/01/24 10:18:15 - Institution: Case Times Holding FTURO Pre-Care Text: Verifies consent for planned procedure, identifies individual values and wishes concerning care, includes family members in perioperative teaching Secures patient's records' belongings, and valuables, maintains patient's dignity and privacy, and maintains patient confidentiality Entry 1 In Holding 05/01/24 11:21:00 Outcomes Met? Yes Last Modified By: Jigar MCLEAN, Kinjal NINO 05/01/24 11:21:12 Post-Care Text: The patient participates [...] MICA Kimball RN, Ruthann 05/01/24 11:27 Normal [facility] Operative Reporton Operative Report Patient: MATEO [...] evaluation, 18 total biopsies were taken. Normal [facility] Comment on above: Result Comment: Elec tronically Signed By: DIONY CHANDLER, Rufina Bynum.brenda\Date and Time Signed: 05/01/24 12:04 EDT Outpatient Surgery Discharge Instructionon 05-01-2024 Outpatient Surgery Discharge Instruction [id number] #1.00TIFF Normal [facility] Patient Educationon 05-01-20 24 Patient Education Custom [...] for your post-operative appointment in 1-2 weeks [phone] or [phone] Normal [facility] Prostate Histology ([facility]) on 05-01-2024 PH Method of Extraction Needle Biopsy Normal [facility] Comment on above: Order Comment: left base x 3 bites Left lateral mid x 3 bites Left apex x 4 bites Performed By: #### 1 [id number] #### [facility] [address] [place] [address] PH Number of Jars 3 Invalid Interpretation Code [facility] Comment on above: Order Comment: left base x 3 bites Left lateral mid x 3 bites Left apex x 4 bites Performed By: #### 1 [id number] #### [facility] [address] [place] [address] PH Specimen 1 L Apx Prostate Normal [facility] Comment on above: Order Comment: left base x 3 bites Left lateral mid x 3 bites Left apex x 4 bites Performed By: #### 1 [id number] #### [facility] [address] [place] [address] PH Specimen 10 R Lat Bse Prost Normal [facility] Comment on above: Order Comment: left base x 3 bites Left lateral mid x 3 bites Left apex x 4 bites Performed By: #### 1 [id number] #### [facility] [address] [place] [address] PH Specimen 11 R Lat Mid Prost Normal [facility] Comment on above: Order Comment: left base x 3 bites Left lateral mid x 3 bites Left apex x 4 bites Performed By: #### 1 [id number] #### [facility] [address] [place] [address] PH Specimen 12 R Lat Apx Prost Normal [facility] Comment on above: Order Comment: left base x 3 bites Left lateral mid x 3 bites Left apex x 4 bites Performed By: #### 1 [id number] #### [facility] [address] [place] [address] PH Specimen 2 L Base Prostate Normal [facility] Comment on above: Order Comment: left base x 3 bites Left lateral mid x 3 bites Left apex x 4 bites Performed By: #### 1 [id number] #### [facility] [address] [place] [address] PH Specimen 3 L Lat Apx Prost Normal [facility] Comment on above: Order Comment: left base x 3 bites Left lateral mid x 3 bites Left apex x 4 bites Performed By: #### 1 [id number] #### [facility] [address] [place] [address] PH Specimen 4 L Lat Bse Prost Normal [facility] Comment on above: Order Comment: left base x 3 bites Left lateral mid x 3 bites Left apex x 4 bites Performed By: #### 1 [id number] #### [facility] [address] [place] [address] PH Specimen 5 L Lat Mid Prost Normal [facility] Comment on above: Order Comment: left base x 3 bites Left lateral mid x 3 bites Left apex x 4 bites Performed By: #### 1 [id number] #### [facility] [address] [place] [address] PH Specimen 6 L Mid Prostate Normal [facility] Comment on above: Order Comment: left base x 3 bites Left lateral mid x 3 bites Left apex x 4 bites Performed By: #### 1 [id number] #### [facility] [address] [place] [address] PH Specimen 7 R Apx Prostate Normal [facility] Comment on above: Order Comment: left base x 3 bites Left lateral mid x 3 bites Left apex x 4 bites Performed By: #### 1 [id number] #### [facility] [address] [place] [address] PH Specimen 8 R Base Prostate Normal [facility] Comment on above: Order Comment: left base x 3 bites Left lateral mid x 3 bites Left apex x 4 bites Performed By: #### 1 [id number] #### [facility] [address] [place] [address] PH Specimen 9 R Mid Prostate Normal [facility] Comment on above: Order Comment: left base x 3 bites Left lateral mid x 3 bites Left apex x 4 bites Performed By: #### 1 [id number] #### [facility] [address] [place] [address] PH Type of Service Technical Only Normal [facility] Comment on above: Order Comment: left base x 3 bites Left lateral mid x 3 bites Left apex x 4 bites Performed By: #### 1 [id number] #### [facility] [address] [place] [address] Patient Educationon 01-02-20 24 Patient Education Oncology [...] near your rectum, especially while sitting. ? [place]-colored urine due to small amounts of blood in your urine. ? A burning feeling while urinating. ? Blood in your stool (feces) or bleeding from your rectum. ? Blood in your semen. Follow these instructions at home: Medicines ? Take xczl-tbl-sthwhot and prescription medicines only as told by [...] provider. Document Revised: 05/10/2022 Document Reviewed: 05/10/2022 [employer] Patient Education ? 2022 [employer] Transrectal Ultrasound-Guided Prostate Biopsy A transrectal ultrasound-guided [...] including vitamins, herbs, eye drops, creams, and fpnl-qls-fnxndwj medicines. ? Any problems you or family [...] as aspirin (more content not included)... Normal [facility] Urology Office/Clinic Noteon 01-02-2024 Urology Office/Clinic [...] Reina, URL [facility] [address] [place] [address] [phone] Additional Instructions: sched repeat TRUS/bx Patient Education [...] Emphysema: Father. I (more content not included)... [facility] Comment on above: Result Comment: Elec tronically Signed By: Rufina VALDEZ MD\.br\Date and Time Signed: 01/02/24 13:53 EST\.br\Electronically Co-Signed By: Vesta Cortes\.br\Date and Time Co-Signed: 01/02/24 13:52 EST Lab Reportson 12-01-2023 Lab Reports [id number] #1.00TIFF [facility] Ambulatory Visit Summaryon 0 06-06-2023 Ambulatory Visit Summary MATEO STEARNS :1960 Visit Date:06/06/2023 Ambulatory Visit Instructions Your Diagnosis Prostate cancer Sebaceous cyst Tests Performed Urnls Dip Stick Auto w/o Microscopy POC 77068 Your Care Team Attending Physician - Rufina [...] Follow-Up Appointments Tuesday 10:45 AM EST With: Rufina VALDEZ MD Where: [facility] Patient Educationon 06-06-20 Patient Education Oncology [...] external be (more content not included)... Normal [facility] Urology Office/Clinic Noteon 06-06-2023 Urology [...] [facility] [address], [place] [address] [phone] Additional Instructions: PSA and ANNE-MARIE Patient Education Prostate Cancer IVesta, personally scribed for Dr. Valdez on 06/06/2023 11:47:20. . Documentation recorded by the Vesta zapata, accurately reflects the services(s) I performed and [...] Cigarettes, 02/07/2023 (more content not included)... Normal [facility] Comment on above: Result Comment: Elec tronically Signed By: Rufina VALDEZ MD\.br\Date and Time Signed: 06/06/23 11:52 EDT\.br\Electronically Co-Signed By: Vesta Cortes\.br\Date and Time Co-Signed: 06/06/23 11:47 EDT PSA, FREE AND TOTAL RATIOon 04-13-2023 % Free PSA 12.1 % Normal [facility] Comment on above: Result Comment: [...] men. Performed By: #### H ISTGAL #### [facility] [address] [place] [address] Dr. James Crowley Prostate specific Ag [Mass/Vol] 3.4 ng/mL Normal 0.0-4.0 [facility] Comment on above: Result Comment: Rosa Elena DESHPANDE methodology. . According to the [employer], Serum PSA should decrease and [...] disease. Performed By: #### H ISTGAL #### [facility] [address] [place] [address] Dr. James Crowley PSA, Free 0.41 ng/mL Normal N/A [facility] Comment on above: Result Comment: Rosa Elena DESHPANDE methodology. Performed By: #### H ISTGAL #### [facility] [address] [place] [address] Dr. James Crowley CBC AUTO DIFFon 04-08-2023 BASO # 0.1 103/ul Normal 0.0-0.1 [facility] Comment on above: Performed By: #### C BC #### [facility] [address] [place] [address] Dr. James Crowley Basophils/100 WBC (Bld) 0.5 % Normal 0.2-2.0 [facility] Comment on above: Performed By: #### C BC #### [facility] [address] [place] [address] Dr. James Crowley EO # 0.1 103/ul Normal 0.0-0.7 [facility] Comment on above: Performed By: #### C BC #### [facility] [address] [place] [address] Dr. James Crowley Eosinophils/100 WBC (Bld) 1.3 % Normal 0.9-7.0 [facility] Comment on above: Performed By: #### C BC #### [facility] [address] [place] [address] Dr. James Crowley Erythrocyte distribution width (RBC) [Ratio] 13.5 % Normal 11.0-15.0 [facility] Comment on above: Performed By: #### C BC #### [facility] [address] [place] [address] Dr. James Crowley Hematocrit (Bld) [Volume fraction] 48.4 % Normal 42.0-54.0 [facility] Comment on above: Performed By: #### C BC #### [facility] [address] [place] [address] Dr. James Crowley Hemoglobin (Bld) [Mass/Vol] 15.6 g/dL Normal 14.0-18.0 [facility] Comment on above: Performed By: #### C BC #### [facility] [address] [place] [address] Dr. James Crowley IG # 0.08 10e3/ul Critically high 0.00-0.03 [facility] Comment on above: Performed By: #### C BC #### [facility] [address] [place] [address] Dr. James Crowley IG % 0.8 % Critically high 0.0-0.5 [facility] Comment on above: Performed By: #### C BC #### [facility] [address] [place] [address] Dr. James Crowley LYMPH # 3.1 103/ul Normal 1.2-3.8 [facility] Comment on above: Performed By: #### C BC #### [facility] [address] [place] [address] Dr. James Crowley Lymphocytes/100 WBC (Bld) 29.8 % Normal 20.5-60.0 [facility] Comment on above: Performed By: #### C BC #### [facility] [address] [place] [address] Dr. James Crowley MANUAL DIFF REQ NO Normal [facility] Comment on above: Performed By: #### C BC #### [facility] [address] [place] [address] Dr. James Crowley MCH (RBC) [Entitic mass] 29.3 pg Normal 25.9-34.0 [facility] Comment on above: Performed By: #### C BC #### [facility] [address] [place] [address] Dr. James Crowley MCHC (RBC) [Mass/Vol] 32.2 g/dL Normal 29.9-35.[address] [facility] Comment on above: Performed By: #### C BC #### [facility] [address] [place] [address] Dr. James Crowley MCV (RBC) [Entitic vol] 90.8 fL Normal 80.0-94.0 [facility] Comment on above: Performed By: #### C BC #### [facility] [address] [place] [address] Dr. James Crowley MONO # 0.6 103/ul Normal 0.3-0.8 [facility] Comment on above: Performed By: #### C BC #### [facility] [address] [place] [address] Dr. James Crowley Monocytes/100 WBC (Bld) 5.9 % Normal 1.7-12.0 [facility] Comment on above: Performed By: #### C BC #### [facility] [address] [place] [address] Dr. James Crowley NEUT # 6.4 103/ul Normal 1.4-6.[address] [facility] Comment on above: Performed By: #### C BC #### [facility] [address] [place] [address] Dr. James Crowley Neutrophils/100 WBC (Bld) 61.7 % Normal 43.0-75.[address] [facility] Comment on above: Performed By: #### C BC #### [facility] [address] [place] [address] Dr. James Crowley Platelet mean volume (Bld) [Entitic vol] 9.1 fL Critically low 9.5-13.5 [facility] Comment on above: Performed By: #### C BC #### [facility] [address] [place] [address] Dr. James Crowley PLT 320 103/ul Normal 150-450 [facility] Comment on above: Performed By: #### C BC #### [facility] [address] [place], [place] [address] Dr. James Crowley RBC 5.33 106/ul Normal 4.70-6.10 [facility] Comment on above: Performed By: #### C BC #### [facility] [address] [place], [place] [address] Dr. James Crowley WBC 10.4 103/ul Normal 4.0-11.0 [facility] Comment on above: Performed By: #### C BC #### [facility] [address] [place], [place] [address] CHEST W CONon [...] MA Date: 2023-04-08 10:41 Normal [facility] LIPID PROFILEon 04-08-2023 CHOL-HDL RATIO NORM SEE BELOW Normal [facility] Comment on above: Result Comment: 3.3 - 4.4 LOW RISK 4.4 - 7.1 AVERAGE RISK 7.1 - 11.0 MODERATE RISK >11.0 HIGH RISK Performed By: #### U NEO, LIPID #### [facility] [address] [address] [address] Jamse Crowley Cholesterol [Mass/Vol] 204 mg/dL Critically high <=200 [facility] Comment on above: Performed By: #### U NEO, LIPID #### [facility] [address] [address] Dr. James Crowley Cholesterol in HDL [Mass/Vol] 55 mg/dL Normal 40-60 [facility] Comment on above: Performed By: #### U NEO, LIPID #### [facility] [address] [address] [address] James Crowley Cholesterol in LDL [Mass/Vol] 115.2 mg/dL Normal [facility] Comment on above: Performed By: #### U NEO, LIPID #### [facility] [address] [address] [address] James Crowley Cholesterol.total/C holesterol in HDL [Mass ratio] 3.7 {ratio} Normal [facility] Comment on above: Performed By: #### U NEO, LIPID #### [facility] [address] [address] [address] James Crowley HDL NORMAL > or = 60 mg/dl - LOW CARDIOVASCULAR RISK <40 mg/dl - HIGH CARDIOVASCULAR RISK Normal [facility] Comment on above: Performed By: #### U NEO, LIPID #### [facility] [address] [address] [address] James Crowley LDL CALC NORMAL SEE BELOW Normal [facility] Comment on above: Result Comment: <100 mg/dl OPTIMAL 100 - 129 mg/dl NEAR OR ABOVE OPTIMAL 130 - 159 mg/dl BORDERLINE HIGH 160 - 189 mg/dl HIGH >190 mg/dl VERY HIGH Performed By: #### U NEO, LIPID #### [facility] [address] [address] [address] James Crowley Triglyceride [Mass/Vol] 169 mg/dL Critically high <=150 [facility] Comment on above: Performed By: #### U NEO, LIPID #### [facility] [address] [address] [address] James Crowley VLDL CALC 33.8 mg/dL Normal [facility] Comment on above: Performed By: #### U NEO, LIPID #### [facility] [address] [address] [address] James Crowley PROF 14(COMP METB)on 023 Albumin [Mass/Vol] 3.7 g/dL Normal 3.4-5.0 [facility] Comment on above: Performed By: #### U NEO, LIPID #### [facility] [address] [place] [address] Dr. James Crowley Albumin/Globulin [Mass ratio] 0.9 {ratio} Normal [facility] Comment on above: Performed By: #### U NEO, LIPID #### [facility] [address] [address] [address] James Crowley ALP [Catalytic activity/Vol] 86 U/L Normal 46-116 [facility] Comment on above: Performed By: #### U NEO, LIPID #### [facility] [address] [address] [address] James Crowley ALT [Catalytic activity/Vol] 33 U/L Normal 16-63 [facility] Comment on above: Performed By: #### U NEO, LIPID #### [facility] [address] [address] [address] James Crowley Anion gap [Moles/Vol] 14.8 mmol/L Normal [facility] Comment on above: Performed By: #### U NEO, LIPID #### [facility] [address] [address] [address] James Crowley AST [Catalytic activity/Vol] 16 U/L Normal 15-37 [facility] Comment on above: Performed By: #### U NEO, LIPID #### [facility] [address] [address] [address] James Crowley Bilirubin [Mass/Vol] 0.7 mg/dL Normal 0.2-1.0 [facility] Comment on above: Performed By: #### U NEO, LIPID #### [facility] [address] [address] [address] James Crowley Calcium [Mass/Vol] 9.1 mg/dL Normal 8.5-10.1 [facility] Comment on above: Performed By: #### U NEO, LIPID #### [facility] [address] [address] [address] James Crowley Chloride [Moles/Vol] 107 mmol/L Normal 98-107 [facility] Comment on above: Performed By: #### U NEO, LIPID #### [facility] [address] [address] [address] James Crowley CO2 [Moles/Vol] 28.0 mmol/L Normal 21.0-32.0 [facility] Comment on above: Performed By: #### U NEO, LIPID #### [facility] [address] [address] [address] James Crowley Creatinine [Mass/Vol] 1.10 mg/dL Normal 0.70-1.30 [facility] Comment on above: Performed By: #### U NEO, LIPID #### [facility] [address] [address] [address] James Crowley EGFR-AF CYMRO >60 Normal >=60 [facility] Comment on above: Performed By: #### U NEO, LIPID #### [facility] [address] [address] [address] James Crowley EGFR-NON AF CYMRO >60 Normal >=[address] [facility] Comment on above: Performed By: #### U NEO, LIPID #### [facility] [address] [address] [address] James Crowley Globulin (S) [Mass/Vol] 3.9 g/dL Normal [facility] Comment on above: Performed By: #### U NEO, LIPID #### [facility] [address] [address] [address] James Crowley Glucose [Mass/Vol] 98 mg/dL Normal 74-[address] [facility] Comment on above: Performed By: #### U NEO, LIPID #### [facility] [address] [address] [address] James Crowley Potassium [Moles/Vol] 3.8 mmol/L Normal 3.5-5.1 [facility] Comment on above: Performed By: #### U NEO, LIPID #### [facility] [address] [address] [address] James Crowley Protein [Mass/Vol] 7.6 g/dL Normal 6.4-8.2 [facility] Comment on above: Performed By: #### U NEO, LIPID #### [facility] [address] [address] [address] James Crowley Sodium [Moles/Vol] 146 mmol/L Critically high 136-145 [facility] Comment on above: Performed By: #### U NEO, LIPID #### [facility] [address] [address] [address] James Crowley Urea nitrogen [Mass/Vol] 18.0 mg/dL Normal 7.0-18.0 [facility] Comment on above: Performed By: #### U NEO, LIPID #### [facility] [address] [address] [address] James Crowley Urea nitrogen/Creatinine [Mass ratio] 16.4 mg/mg Normal [facility] Comment on above: Performed By: #### U NEO, LIPID #### [facility] [address] [address] [address] James Crowley URIC ACID SERUMon 04-08-2023 Urate [Mass/Vol] 6.7 mg/dL Normal 3.5-7.2 [facility] Comment on above: Performed By: #### U NEO, LIPID #### [facility] [address] [place] [address] CHEST WO CONon [...] MA Date: 2023-01-04 10:52 Normal [facility] CT CHEST WO CONon 10-07-2022 [...] LEONOR MA Date: 2022-10-07 16:05 Normal [facility] ACID FAST SMEAR AND CXon Acid Fast Culture Negative Normal [facility] Comment on above: Result Comment: No a tomi fast bacilli isolated after 6 weeks. Performed By: #### U NEO, LIPID #### [facility] [address] [place] [address] Dr. James Crowley Acid Fast Smear Negative Normal [facility] Comment on above: Performed By: #### U NEO, LIPID #### [facility] [address] [address] [address] James Crowley [employer] Specimen Processing Concentration Normal [facility] Comment on above: Performed By: #### U NEO, LIPID #### [facility] [address] [address] [address] James Crowley FUNGAL AB QUANTITAIVE DOUBLE IMMUNODIFFUon 08-22-2022 Aspergillus flavus Negative Normal Neg:<1:1 [facility] Comment on above: Performed By: #### F UNGUYI #### [facility] [address] [address] [address] James Crowley Aspergillus fumigatus Negative Normal Neg:<1:1 [facility] Comment on above: Performed By: #### F UNGUYI #### [facility] [address] [place] [address] Dr. James Crowley Aspergillus niger Negative Normal Neg:<1:1 [facility] Comment on above: Performed By: #### F UNGUYI #### [facility] [address] [place] [address] Dr. James Crowley Blastomyces Negative Normal Neg:<1:[address] [facility] Comment on above: Performed By: #### F UNGUYI #### [facility] [address] [place] [address] Dr. James Crowley COXSACKIE B VIRUS ANTIBODIES on 08-21-2022 Coxsackie B-1 Ab Negative Normal Neg:<1:8 [facility] Comment on above: Performed By: #### C OXSBV #### [facility] [address] [place] [address] Dr. James Crowley Coxsackie B-2 Ab Negative Normal Neg:<1:8 [facility] Comment on above: Performed By: #### C OXSBV #### [facility] [address] [place] [address] Dr. James Crowley coxsackie B-3 Ab Negative Normal Neg:<1:8 [facility] Comment on above: Performed By: #### C OXSBV #### [facility] [address] [place] [address] Dr. James Crowley Coxsackie B-4 Ab Negative Normal Neg:<1:8 [facility] Comment on above: Performed By: #### C OXSBV #### [facility] [address] [place] [address] Dr. James Crowley Coxsackie B-5 Ab Negative Normal Neg:<1:8 [facility] Comment on above: Performed By: #### C OXSBV #### [facility] [address] [place] [address] Dr. James Crowley Coxsackie B-6 Ab Negative Normal Neg:<1:8 [facility] Comment on above: Performed By: #### C OXSBV #### [facility] [address] [place] [address] Dr. James Crowley HISTOPLASMA CAP AB QUANT DID on 08-21-2022 Histoplasma Mycelial CF Ab. Negative Normal Neg:<1:[address] [facility] Comment on above: Performed By: #### H ISTGAL #### [facility] [address] [address] [address] James Crowley Histoplasma Yeast CF Ab Negative Normal Neg:<1:[address] [facility] Comment on above: Performed By: #### H ISTGAL #### [facility] [address] [address] [address] James Crowley COX[place] A VIRUS AB IGMon 0 08-20-2022 [place] A16 IgM Negative Normal Neg:<1:10 [facility] Comment on above: Performed By: #### C OXSIGM #### [facility] [address] [address] [address] James Crowley [place] A24 IgM Negative Normal Neg:<1:10 [facility] Comment on above: Performed By: #### C OXSIGM #### [facility] [address] [place] [address] Dr. James Crowley [place]ie A7 IgM Negative Normal Neg:<1:10 [facility] Comment on above: Performed By: #### C OXSIGM #### [facility] [address] [place] [address] Dr. James Crowley [place] A9 IgM Negative Normal Neg:<1:10 [facility] Comment on above: Performed By: #### C OXSIGM #### [facility] [address] [place] [address] Dr. aJmes Crowley HISTOPLASMA GALACTOMANNAN AG URINEon 08-20-2022 Histoplasma Gal'shwetha Ag <0.5 Normal <0.5 ng/mL [facility] Comment on above: Performed By: #### H ISTGAL #### [facility] [address] [place] [address] Dr. James Crowley QUANTIFERON TB GOLD PLUSon 0 08-20-2022 QuantiFERON Criteria Comment Normal [facility] Comment on above: Result Comment: Vick tiFERON-TB [...] test. Performed By: #### Q NTTB #### [facility] [address] [place] [address] Dr. James Crowley QuantiFERON Incubation Incubation performed. Normal [facility] Comment on above: Performed By: #### Q NTTB #### [facility] [address] [place] [address] Dr. James Crowley QuantiFERON Mitogen Value >10.00 Normal [facility] Comment on above: Performed By: #### Q NTTB #### [facility] [address] [place] [address] Dr. James Crowley QuantiFERON Nil Value 0.04 IU/mL Normal [facility] Comment on above: Performed By: #### Q NTTB #### [facility] [address] [place] [address] Dr. James Crowley QuantiFERON TB1 Ag Value 0.04 IU/mL Normal [facility] Comment on above: Performed By: #### Q NTTB #### [facility] [address] [place] [address] Dr. James Crowley QuantiFERON TB2 Ag Value 0.05 IU/mL Normal [facility] Comment on above: Performed By: #### Q NTTB #### [facility] [address] [place] [address] Dr. James Crowley QuantiFERON-TB Gold Plus Negative Normal Negative [facility] Comment on above: Result Comment: No r esponse to M tuberculosis antigens detected. Infection with M tuberculosis is unlikely, but high risk individuals should be considered for additional testing (ATS/IDSA/CDC Clinical Practice Guidelines, 2017). The reference range is an Antigen minus Nil result of <0.35 IU/mL. Chemiluminescence immunoassay methodology Performed By: #### Q NTTB #### [facility] [address] [place] [address] Dr. James Crowley CREATININEon 08-18-2022 Creatinine [Mass/Vol] 0.97 mg/dL Normal 0.70-1.30 [facility] Comment on above: Performed By: #### H ISTGAL #### [facility] [address] [address] [address] James Crowley EGFR-AF CYMRO >60 Normal >=60 [facility] Comment on above: Performed By: #### H ISTGAL #### [facility] [address] [address] [address] James Crowley EGFR-NON AF CYMRO >60 Normal >=[address] [facility] Comment on above: Performed By: #### H ISTGAL #### [facility] [address] [address] CHEST W CONon [...] LEONOR MA Date: 2022-08-18 10:[address] [facility] CULTURE SPUTUMon 08-18-2022 CULTURE SPUTUM Isolate 1 Haemophilus parainfluenzae Moderate growth of Normal [facility] Comment on above: Result Comment: Beta -Lactamase: Negative Performed By: #### H ISTGAL #### [facility] [address] [address] [address] James Crowley SPUTUM GRAM STAINon 08-18-20 COMMENTS Normal [facility] Comment on above: Performed By: #### H ISTGAL #### [facility] [address] [address] [address] James Crowley DIPHTHEROIDS Normal [facility] Comment on above: Performed By: #### H ISTGAL #### [facility] [address] [address] [address] James Crowley EPITHELIALS <25 Normal [facility] Comment on above: Performed By: #### H ISTGAL #### [facility] [address] [address] [address] James Crowley FUNGAL ELEMENTS Normal [facility] Comment on above: Performed By: #### H ISTGAL #### [facility] [address] [address] [address] James Crowley GRAM NEG BACILLI [facility] Comment on above: Performed By: #### H ISTGAL #### [facility] [address] [address] [address] James KAN NEG DIPPLOCOCCI FEW [facility] Comment on above: Performed By: #### H ISTGAL #### [facility] [address] [address] [address] James KAN POS BACILLI Normal [facility] Comment on above: Performed By: #### H ISTGAL #### [facility] [address] [address] [address] James Crowley GRAM POSITIVE COCCI FEW Normal [facility] Comment on above: Performed By: #### H ISTGAL #### [facility] [address] [address] [address] James Crowley WBC (Bld) [#/Vol] 10*3/uL Normal [facility] Comment on above: Performed By: #### H ISTGAL #### [facility] [address] [address] [address] James Crowley XR RIBS RT PA [...] [place] CISNEROS Date: 2022-08-12 13:[address] [facility] Covid-19 PCR (CVDTB)on SARS-CoV-2 (COVID-19) RNA SOURAV+probe Ql (Unsp spec) Not detected Normal NOT DETECTED [facility] Comment on above: Result Comment: [...] for this test is supported by the [employer] of [employer] and Human Service's declaration that [...] longer be used). Performed By: #### [facility] #### [facility] [address] [address] [address] James Rey 03-24-2021 L Specimen: Received: 03/24/21 Status: [place] Barnesalisa Num: [id number] Spec Type: Surgical Subm Dr: Bryan Quick MD Tissues: A Skin-Other than Cyst, tag, debridement or plastic repair (LT NASAL DORSUM) Procedures: HE Stain, Gross/Micro L4 Patient Age/Sex Location Account Attending Physician Mateo Stearns/Oj CÁRDENAS [id number] Bryan Quick MD SPEC NUM: RECD: 03/24/21 STATUS: [place] BISI NUM: [id number] FRANCISCA: 03/24/[address]: Bryan Quick MD ENTERED: 03/24/[address]: SPEC TYPE: Surgical DEPT: S ORDERED: [...] microscopic findings support the above pathologic diagnosis. [id number] Specimen: [id number] Received: 03/24/21 Status: [place] Nix Num: [id number] Spec Type: Surgical Subm Dr: Bryan Quick MD Tissues: A Skin-Other than Cyst, tag, debridement or plastic repair (LT NASAL DORSUM) Procedures: HE Stain, Gross/Micro L4 Patient: Mateo Stearns [id number] (Continued) Signed (signature on file) Cindy Garcia MD 03/25/21 1824 [facility] Vital Signs Date Time Vital Sign Value Performing Clinician Dom jesus 07-12-2024 13:06-0400 Body mass index (BMI) [Ratio] 23.41 kg/m2 MEI French MD Work Phone: [facility] 07-12-2024 13:06-0400 Body temperature 98.1 [degF] MEI French MD Work Phone: [facility] 07-12-2024 13:06-0400 Body weight 67.8 kg MEI French MD Work Phone: [facility] 07-12-2024 13:06-0400 Diastolic blood pressure 83 mm[Hg] MEI French MD Work Phone: [facility] 07-12-2024 13:06-0400 Heart rate 95 /min MEI French MD Work Phone: [facility] 07-12-2024 13:06-0400 Respiratory rate 18 /min MEI French MD Work Phone: [facility] 07-12-2024 13:06-0400 SaO2% (BldA) [Mass fraction] 95 % MEI French MD Work Phone: [facility] 07-12-2024 13:06-0400 Systolic blood pressure 157 mm[Hg] MEI French MD Work Phone: [facility] 06-21-2024 13:13-0400 Body height 170.2 cm MEI French MD Work Phone: [facility] 06-21-2024 13:13-0400 Body mass index (BMI) [Ratio] 23.41 kg/m2 MEI French MD Work Phone: [facility] 06-21-2024 13:13-0400 Body temperature 97.5 [degF] MEI French MD Work Phone: [facility] 06-21-2024 13:13-0400 Body weight 67.8 kg MEI French MD Work Phone: [facility] 06-21-2024 13:13-0400 Diastolic blood pressure 75 mm[Hg] MEI French MD Work Phone: [facility] 06-21-2024 13:13-0400 Heart rate 86 /min MEI French MD Work Phone: [facility] 06-21-2024 13:13-0400 Respiratory rate 20 /min MEI French MD Work Phone: [facility] 06-21-2024 13:13-0400 SaO2% (BldA) [Mass fraction] 95 % MEI French MD Work Phone: [facility] 06-21-2024 13:13-0400 Systolic blood pressure 124 mm[Hg] MEI French MD Work Phone: [facility] 06-01-2024 13:13-0400 Body height 175.3 cm Amandeep Crisostomo MD Work Phone: [facility] 06-01-2024 13:13-0400 Body mass index (BMI) [Ratio] 22.14 kg/m2 Amandeep Crisostomo MD Work Phone: [facility] 06-01-2024 13:13-0400 Body weight 68 kg Amandeep Crisostomo MD Work Phone: [facility] 06-01-2024 13:13-0400 Diastolic blood pressure 81 mm[Hg] Amandeep Crisostomo MD Work Phone: [facility] 06-01-2024 13:13-0400 Heart rate 88 /min Amandeep Crisostomo MD Work Phone: [facility] 06-01-2024 13:13-0400 Systolic blood pressure 138 mm[Hg] Amandeep Crisostomo MD Work Phone: [facility] 05-21-2024 11:35-0400 Blood Pressure Location Rufina VALDEZ [facility] 05-21-2024 11:35-0400 Body temperature 98.6 [degF] Rufina VALDEZ [facility] 05-21-2024 11:35-0400 Diastolic blood pressure 84 mm[Hg] Rufina VALDEZ [facility] 05-21-2024 11:35-0400 Heart rate 76 /min Rufina VALDEZ [facility] 05-21-2024 11:35-0400 Respiratory rate 16 /min Rufina VALDEZ [facility] 05-21-2024 11:35-0400 Systolic blood pressure 139 mm[Hg] Rufina VALDEZ [facility] 06-06-2023 10:36-0400 Blood Pressure Location Rufina VALDEZ [facility] 06-06-2023 10:36-0400 Diastolic blood pressure 76 mm[Hg] Rufina VALDEZ [facility] 06-06-2023 10:36-0400 Heart rate 72 /min Rufina VALDEZ [facility] 06-06-2023 10:36-0400 Respiratory rate 16 /min Rufina VALDEZ [facility] 06-06-2023 10:36-0400 Systolic blood pressure 130 mm[Hg] Rufina VALDEZ [facility] 02-07-2023 12:42-0400 Blood Pressure Location Rufina VALDEZ [facility] 02-07-2023 12:42-0400 Diastolic blood pressure 77 mm[Hg] Rufina VALDEZ [facility] 02-07-2023 12:42-0400 Heart rate 74 /min Rufina VALDEZ [facility] 02-07-2023 12:42-0400 Systolic blood pressure 138 mm[Hg] Rufina VALDEZ [facility] 05-17-2022 12:56-0400 Blood Pressure Location Rufina VALDEZ [facility] 05-17-2022 12:56-0400 Diastolic blood pressure 87 mm[Hg] Rufina VALDEZ [facility] 05-17-2022 12:56-0400 Heart rate 79 /min Rufina VALDEZ [facility] 05-17-2022 12:56-0400 Respiratory rate 16 /min Rufina VALDEZ [facility] 05-17-2022 12:56-0400 Systolic blood pressure 139 mm[Hg] Rufina VALDEZ [facility] Encounters Encounter Date Encounter Type Care Provider Facility Start: 09-11-2024 End: 09-11-2024 ambulatory Severo FRENCH Facility:[facility] Comment on above: Patient Education Start: 09-07-2024 End: 09-07-2024 Clinisync Result Encounter Generic External Data Provider [facility] External Department Unsolicited Start: 09-07-2024 End: 09-07-2024 Clinisync Result Encounter Generic External Data Provider [facility] External Department Unsolicited Start: 07-12-2024 End: 07-12-2024 ambulatory KATHIE JAYE SÁNCHEZ Facility:[facility] Start: 07-12-2024 End: 07-12-2024 Patient encounter procedure Severo French MD Work Phone: Radiation Oncology Comment on above: Malignant neoplasm o f prostate (HCC) (Primary Dx) Start: 06-21-2024 End: 06-21-2024 ambulatory Severo FRENCH Facility:[facility] Start: 06-21-2024 End: 06-21-2024 Patient encounter procedure [...] Start: 05-21-2024 End: 05-21-2024 ambulatory Rufina VALDEZ Facility:[place] Start: 05-21-2024 End: 05-21-2024 Patient encounter procedure Rufina VALDEZ [facility] [place] Start: 05-01-2024 End: 05-01-2024 ambulatory Rufina VALDEZ Facility[place] Start: 05-01-2024 End: 05-01-2024 Patient encounter procedure Rufina VALDEZ [facility] Start: 02-28-2024 Patient encounter procedure Generic Provider [facility] Start: 02-28-2024 End: 02-28-2024 ambulatory KATHIE AICHHOLZ Not Available Start: 01-05-2024 Clinisync Result Encounter Generic External Data Provider [facility] Unsolicited Start: 01-05-2024 Clinisync Result Encounter Generic External Data Provider [facility] Unsolicited Start: 01-02-2024 End: 01-02-2024 ambulatory Rufina VALDEZ Facility:[place] Start: 07-22-2023 ambulatory Rufina VALDEZ Facili ty:[place] Start: 06-06-2023 End: 06-06-2023 ambulatory Rufina VALDEZ Facility:[place] Start: 06-06-2023 End: 06-06-2023 Patient encounter procedure Rufina VALDEZ [facility] Start: 05-17-2023 End: 05-17-2023 Patient encounter procedure Rufina VALDEZ [facility] Start: 04-12-2023 End: 04-13-2023 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 Facility:[facility] Start: 08-12-2022 End: 08-12-[address] ELSA RAE . Facility:[facility] Start: 07-20-2022 End: 08-11-2022 Pre-admission assessment Rufina VALDEZ [facility] Start: 05-17-2022 End: 06-16-2022 Pre-admission assessment Rufina VALDEZ [facility] Start: 05-17-2022 End: 05-17-2022 Patient encounter procedure Rufina VALDEZ [facility] Start: 05-03-2022 End: 05-03-2022 ambulatory ROBERTO ALVES . Facility:[facility] Start: 03-24-2021 End: 03-24-2021 Departed Referred Bryan Quick Work Phone: [facility] [place] Procedures Date Procedure Procedure Detail Performing Clinician Start: 09-07-2024 MHPT PSA, DIAGNOSTIC Ge neric External Data Provider Start: 06-01-2024 Urnls dip stick/tabl et rgnt auto w/o microscopy Bulk Order Provider Start: 05-01-2024 Transrectal biopsy o f prostate using ultrasound guidance Rufina VALDEZ Start: 01-05-2024 BLOOD CULTURE 2 Generic External Data Provider Start: 01-05-2024 BLOOD CULTURE 1 Generic External Data Provider Start: 04-08-2023 PSA screening PROMISE SÁNCHEZ Comment on above: Performed By: #### P [facility] #### [facility] [address] [place] [address] Dr. James Crowley Start: 10-19-2022 Colonoscopy Generic Pr ovider Colonoscopy Rufina VALDEZ Procedure on foot Rufina LEON Repair of hip Rufina VALDEZ Comment on above: Both hips Both hips Transrectal needle b iopsy of prostate Rufina VALDEZ Plan of Treatment Date Care Activity Detail Author Start: 10-19-2032 Screening for malign ant neoplasm of colon [facility] Start: 03-11-2031 Urine microalbumin profile DTaP,Tdap,Td Vaccine (2 - Td or Tdap) [facility] Start: 09-07-2029 Prostate specific antigen measurement Prostate Cancer Screening Discussion [facility] Start: 02-27-2025 Medicare Annual Wellness (AWV) Medicare Annual Wellness (AWV) [facility] Start: 02-27-2025 Pneumococcal Vaccine : 65+ Years (1 of 2 - PCV) Pneumococcal Vaccine: 65+ Years (1 of 2 - PCV) [facility] Comment on above: Postponed from 07/21 (Patient Refused) Start: 09-21-2024 End: 12-21-2024 Prostate specific Ag [Mass/volume] in Serum or Plasma PROSTATE-SPECIFIC ANTIGEN DIAGNOSTIC Lab Routine Malignant neoplasm of prostate (HCC) Expected: 09/21/2024, Expires: 12/21/2024 [facility] Work Phone: Comment on above: Expected: 09/21/2024 , Expires: 12/21/2024 Start: 09-17-2024 End: 09-17-2024 Patient encounter procedure Radiation Oncology Comment on above: Pre Sim - treating P norbert - SHAYY Sim - treating Pelvi s - SHAYY Start: 09-13-2024 End: 09-13-2024 Patient encounter procedure 09/13/2024 10:30 AM EDT Office Visit [facility] [address] [place] [address] Kathie Sánchez, DONALD [address] [place] [id number] [facility] Start: 09-11-2024 End: 09-11-2024 Patient encounter procedure 09/11/2024 1:45 PM EDT Office Visit Rad[facility] On[facility] [address] [place] [address] [place] [address] Severo French MD [address] [place] [address] 2 month rv Radiation Oncology Comment on above: 2 month rv Start: 07-29-2024 Covid-19 Vaccine ( season) Covid-19 Vaccine ( season) [facility] Start: 07-29-2024 Influenza vaccination Influenza Vacc ine (#1) [facility] Start: 07-12-2024 End: 07-12-2024 Patient encounter procedure 07/12/2024 1:15 PM EDT Office Visit Radiation Oncology [address] [place] [address] Severo French MD [address] [place] [address] 3 week rv-Decipher results Radiation Oncology Comment on above: 3 week rv-Decipher r esults Start: 06-01-2024 End: 08-31-2024 Prostate specific Ag [Mass/volume] in Serum or Plasma PROSTATE-SPECIFIC ANTIGEN DIAGNOSTIC Lab Routine Prostate cancer (HCC) Expected: 06/01/2024, Expires: 08/31/2024 [facility] Work Phone: Comment on above: Expected: 06/01/2024 , Expires: 08/31/2024 Start: 11-28-2023 Advance Directive Discussion Advance Directive Discussion [facility] Start: 11-28-2023 Behavioral Health Screening Behavioral Health Screening [facility] Start: 07-29-2023 Covid-19 Vaccine ( season) Covid-19 Vaccine () [facility] Start: 07-29-2023 Influenza vaccination Influenza Vacc ine (#1) [facility] Start: 2023 Pneumococcal Vaccine : 65+ Years (1 - PCV) Pneumococcal Vaccine: 65+ Years (1 - PCV) [facility] Start: 2018 RSV Vaccine (1 - 1-d ose 60+ series) RSV Vaccine (1 - 1-dose 60+ series) [facility] Start: 2013 Prostate specific antigen measurement Prostate Cancer Screening Discussion [facility] Start: 2008 Screening for malign ant neoplasm of lung Lung Cancer Screening [facility] Start: 2003 Diabetes Screening Diabetes Screenin g [facility] Start: 2003 Screening for malign ant neoplasm of colon [facility] Start: 1993 Lipid panel Lipid Screening [facility] Start: 1988 Zoledronic acid therapy Alpha- 1 Antitrypsin Deficiency Screening [facility] Start: 1976 Annual PCP Team [employer] Disease Visit Annual PCP Team Chronic Disease Visit [facility] Start: 1976 Anxiety Screening Anxiety Screening [facility] Start: 1976 Depression Screening Depression Scre ening [facility] Start: 1976 Hepatitis C screening Hepatitis C Sc reening [facility] Start: 1976 HIV screening HIV Screening [facility] Start: 1976 Spirometry Spirometry [facility] Start: 1964 Pneumococcal Vaccine : 65+ (1 of 2 - PCV) Pneumococcal Vaccine: 65+ (1 of 2 - PCV) [facility] Start: 1958 Abdominal aortic aneurysm screening Abdominal Aortic Aneurysm Screening [facility] Start: 1958 Medicare Annual Wellness (AWV) Medicare Annual Wellness (AWV) [facility] Start: 1958 Screening for malign ant neoplasm of colon [facility] BLOOD CULTURE 1 BLOOD CULTURE 1 Lab Routine 01/05/2024 4:58 PM EST [facility] BLOOD CULTURE 2 BLOOD CULTURE 2 Lab Routine 01/05/2024 5:04 PM EST [facility] End: 06-01-2025 Prostate specific Ag [Mass/volume] in Serum or Plasma PROSTATE-SPECIFIC ANTIGEN DIAGNOSTIC Lab Routine Prostate cancer (HCC) Every 6 months for 3 Occurrences starting 06/01/2024 until 06/01/2025 [facility] Comment on above: Every 6 months for 3 Occurrences starting 06/01/2024 until 06/01/2025 Immunizations Immunization Date Immunization Notes Care Provider Jenni dominguez 09-17-2023 zoster vaccine recombinant Rufina VALDEZ [facility] 07-04-2023 zoster vaccine recombinant Rufina VALDEZ [facility] 09-25-2022 SARS-CoV-2 (COVID-19 ) [id number] Rufina VALDEZ [facility] 05-26-2021 SARS-CoV-2 (COVID-19 ) mRNA BNT-162b2 vax Rufina VALDEZ [facility] 05-05-2021 SARS-CoV-2 (COVID-19 ) mRNA BNT-162b2 vax Rufina VALDEZ [facility] 03-11-2021 tetanus toxoid, redu liyah diphtheria toxoid, and acellular pertussis vaccine, adsorbed Rufinamichelle VALDEZ [facility] Payers Date Payer Category Payer Unknown [facility] MEDICARE ADVANTAGE O [id number] 2023-Present [phone] [address] [place] [address] O [id number] 2022 Medicare [facility] MEDICARE ADVANTAGE [facility] MEDICARE ADVANTAGE [id number] 2022-Present [address] [place] [address] [id number] 2020 Medicaid MEDICAID [facility] [id number] 2020-Present [phone] [address] [place] [address] Medicaid [id number] 1959 Medicaid [id number] 1959 Medicare [id number] 1959 Unknown [id number] 1958 Unknown [id number] 1958 Unknown [id number] 1958 Unknown [id number] 1958 Unknown [id number] 1958 Unknown [id number] 1958 Unknown [id number] 1958 Unknown [id number] 1958 Unknown [id number] [id number] 1958 Unknown [id number] 1958 Unknown [id number] 1958 Unknown [id number] 1958 Unknown [id number] 1958 Unknown [id number] 1958 Unknown [id number] Self-pay Self Pay [id number] Social History Date Type Detail Facility Tobacco smoking stat [facility] Unknown if ever smoked [facility] Start: 1960 Sex Assigned At Male F [facility] Start: 05-17-2022 End: 09-11-2024 Tobacco smoking status Ex-smoker (finding) [facility] Start: 11-13-2023 End: 06-21-2024 Sex Assigned At Male [facility] Tobacco smoking status Never [facility] Start: 11-28-1975 End: 11-28-2016 History of tobacco use Current smoker [facility] Start: 11-28-1975 End: 11-28-2016 History of tobacco use Cigarette Smoker [facility] Start: 11-13-2023 End: 06-21-2024 Cigarettes smoked current (pack per day) - Reported 2 [facility] Start: 11-13-2023 End: 09-11-2024 Alcohol intake Ex-drinker (finding) [facility] Start: 1960 Sex Assigned At Not on file N [facility] Start: 05-16-2013 Tobacco smoking stat us WIIS Smokes tobacco daily [facility] Start: 05-16-2013 End: 09-11-2024 Tobacco use and exposure Smokeless tobacco non-user [facility] Start: 05-16-2013 Alcohol intake Current drinke r of alcohol (finding) [facility] Start: 06-21-2024 Alcohol Comment quit 2016 [facility] Within the last year , have you been afraid of your partner or ex-partner? No [facility] Do you belong to any clubs or organizations such as orthodox groups, unions, fraternal or athletic groups, or school groups? Yes [facility] Are you now , , , , never or living with a partner? [facility] How often to you hav e a drink containing alcohol? Never [facility] How hard is it for y ou to pay for the very basics like food, housing, medical care, and heating Not very hard [facility] Do you feel stress - tense, restless, nervous, or anxious, or unable to sleep at night because your mind is troubled all the time - these days [OSQ] Only a little [facility] (I/We) worried vanessa er (my/our) food would run out before (I/we) got money to buy more. Never true [facility] Goals Date Patient Goal Desired Activity /State Functional Status Date Assessment Result Facility 05-21-2024 Functional Status N/A [facility] 06-06-2023 Functional Status N/A [facility] 05-17-2023 Functional Status N/A [facility] 02-07-2023 Functional Status N/A [facility] 08-05-2022 N/A [facility] 06-11-2022 Functional Status N/A [facility] 05-17-2022 Functional Status N/A [facility] Clinical Notes 05-17-2022 to 09-11-2024 Dayanna Call LPN - 09/11/2024 2:21 PM Dayanna Devi LPN - 09/11/2024 2:21 PM Severo Henderson MD - 07/12/2024 1:15 PM Severo Henderson MD - 06/21/2024 1:17 PM EDT Note Date & Type Note Facility 09-11-2024 Nurse Note Radiation Therapy - Patient Education Note PATIENT NAME: Mateo Stearns PATIENT September 11, 2024 [facility] FACILITY/LOCATION: [facility] READINESS TO LEARN Cognitive Ability: Alert and oriented Motivation to learn: Interested Family Support: unable to assess. Yang is currently raising his 5 year old grandson alone. He states he's very independent and will do well. Instruction provide to: Patient Patient learns best by: Multiple Methods Factors effecting learning: None Physical limitations effecting learning: None LEARNING RESPONSE Diagnosis: Pt simulated today for radiation therapy to pelvis. Education Topic/Teaching Points: Radiation therapy, Side effects, and OTV: Method of instruction: Written instruction/Handouts Verbal instruction Patient /Family response: Patient verbalized understanding of radiation treatments, side effects, OTV, and transportation. Follow-up plan: Patient instructed to call with any further issues Recommend - Recommend continued instruction and follow up as directed Contact information given. Supplemental material: Informational handouts on Bladder function, Diarrhea, Fatigue, Skin changes, and patient education binder. Referral (recommendation): None, Pt denied need for social work, van service, and water mangle tender. Was PED reviewed? No Patient has an Onbody or Implanted device: No Signed by: Dayanna Call RN [facility] 09-11-2024 Nurse Note Radiation Therapy - Patient Education Note PATIENT NAME: Mateo Stearns PATIENT September 11, 2024 [facility] FACILITY/LOCATION: [facility] READINESS TO LEARN Cognitive Ability: Alert and oriented Motivation to learn: Interested Family Support: unable to assess. Yang is currently raising his 5 year old grandson alone. He states he's very independent and will do well. Instruction provide to: Patient Patient learns best by: Multiple Methods Factors effecting learning: None Physical limitations effecting learning: None LEARNING RESPONSE Diagnosis: Pt simulated today for radiation therapy to pelvis. Education Topic/Teaching Points: Radiation therapy, Side effects, and OTV: Method of instruction: Written instruction/Handouts Verbal instruction Patient /Family response: Patient verbalized understanding of radiation treatments, side effects, OTV, and transportation. Follow-up plan: Patient instructed to call with any further issues Recommend - Recommend continued instruction and follow up as directed Contact information given. Supplemental material: Informational handouts on Bladder function, Diarrhea, Fatigue, Skin changes, and patient education binder. Referral (recommendation): None, Pt denied need for social work, van service, and water mangle tender. Was PED reviewed? No Patient has an Onbody or Implanted device: No Signed by: Dayanna Call RN documented in this encounter [facility] 09-11-2024 Note Education (RADSLIMEA) MATEO STEARNS ([id number]) 1960 M Date Time Provider Department 09/11/24 DAYANNA CALL Reason for Visit: Patient Education [91] Visit Notes: >> Dayanna Call LPN Tue Sep 11, 2024 2:21 PM Status: Signed Radiation Therapy - Patient Education Note PATIENT NAME: Mateo Stearns PATIENT September 11, 2024 [facility] FACILITY/LOCATION: [facility] READINESS TO LEARN Cognitive Ability: Alert and oriented Motivation to learn: Interested Family Support: unable to assess. Yang is currently raising his 5 year old grandson alone. He states he's very independent and will do well. Instruction provide to: Patient Patient learns best by: Multiple Methods Factors effecting learning: None Physical limitations effecting learning: None LEARNING RESPONSE Diagnosis: Pt simulated today for radiation therapy to pelvis. Education Topic/Teaching Points: Radiation therapy, Side effects, and OTV: Method of instruction: Written instruction/Handouts Verbal instruction Patient /Family response: Patient verbalized understanding of radiation treatments, side effects, OTV, and transportation. Follow-up plan: Patient instructed to call with any further issues Recommend - Recommend continued instruction and follow up as directed Contact information given. Supplemental material: Informational handouts on Bladder function, Diarrhea, Fatigue, Skin changes, and patient education binder. Referral (recommendation): None, Pt denied need for social work, van service, and water mangle tender. Was PED reviewed? No Patient has an Onbody or Implanted device: No Signed by: Dayanna Call RN During your visit today, we recorded the following information about you: Allergies As of Date: 09/11/2024 (No Known Allergies) Date Reviewed: 09/11/2024 Reviewed by: Dayanna Call LPN - Fully Assessed Prescriptions as of 09/11/2024 - predniSONE (DELTASONE) 10 mg tablet Refills(s) 0 - aspirin, enteric coated (ASPIRIN, ENTERIC COATED) [...] Take 2 pills daily x 3 days Encounter Status:Closed by DAYANNA CALL on 09/11/24 [facility] 07-12-2024 History of Presen t illness Narrative [...] No date: COPD (chronic obstructive pulmonary disease) ([facility]) No date: Emphysema of lung ([facility]) No date: GERD (gastroesophageal reflux disease) PAST [...] ASSESSMENT/PLAN: Prostate adenocarcinoma, initial PSA 4.46, biopsy Offerle score 3 + 3 = 6 (grade [...] by: Severo French MD cc: Kathie Sánchez, TUFTING MACHINE OPERATOR ([facility]) [address] [place] [address] Rufina Valdez [address] [place] [address] documented in this encounter [facility] 07-12-2024 Note HNO ID: [id number] Author: Severo FRENCH MD Service: ? Author [...] by: Severo French MD cc: Kathie Sánchez, TUFTING MACHINE OPERATOR ([facility]) [address] [place] [address] Rufina Valdez [address] [place] [address] [facility] 06-21-2024 Note HNO ID: [id number] Author: Severo FRENCH MD Service: ? Author [...] on 05/01/2024 with the finding of adenocarcinoma, Offerle 6 (3+3) from left lateral base, left [...] Chest: No respir (more content not included)... [facility] 06-21-2024 History of Presen t illness Narrative Radiation Oncology - Prostate Cancer New Patient/Consult Note PATIENT NAME: Mateo Stearns PATIENT REQUESTING PROVIDER: Dr. [place]dez DIAGNOSIS: 63 year old male with prostate adenocarcinoma, initial PSA 4.46, biopsy Offerle score 3 + 3 = 6 (grade [...] with elevated PSA and prostate biopsy demonstrating Offerle 6 adenocarcinoma in 2 cores. (Left lateral [...] ASSESSMENT/PLAN: Prostate adenocarcinoma, initial PSA 4.46, biopsy Offerle score 3 + 3 = 6 (grade [...] by: Severo French MD cc: Kathie Sánchez, TUFTING MACHINE OPERATOR ([facility]) [address] [place] [address] Rufina Valdez [address] [place] [address] documented in this encounter [facility] 06-21-2024 Nurse Note Pacemaker/Defibrillator?N Previous Cancer(s)?N Previous Radiation?N Lupus/Scleroderma?N On body monitoring device?N AUA= 5 [facility] 06-21-2024 Nurse Note Pacemaker/Defibrillator?N Previous Cancer(s)?N Previous Radiation?N Lupus/Scleroderma?N On body monitoring device?N AUA= 5 documented in this encounter [facility] 06-01-2024 Note HNO ID: [id number] Author: AMANDEEP CRISOSTOMO MD Service: ? Author Type: Physician Type: Progress Notes Filed: 06/24/2024 16:18 Note Text: Referring Provider: Chief Complaint: Recently diagnosed CaP HPI: 63 year old male from [place], [place] with a PMHx of COPD (40 pack-year smoker), Afib (on ASA), and GERD diagnosed with CAP in 05/20 which showed 2 cores of Offerle 6 disease. He has sever COPD with [...] review Assessment 63 year old male from [place], [place] with a PMHx of COPD (40 pack-year smoker and poor oxygenation status), Afib (on ASA), and GERD diagnosed with CAP in 05/20 which showed 2 cores of Brenden 6 disease. Recently had more + cores on a repeat biopsy and is here to discuss treatment options. He currently has low risk disease. We discussed the treatment options which include continued active surveillance, RARP, and XRT including EBRT or brachytherapy. Given patient's COPD status he may not be best candidate for surgery an (more content not included)... [facility] 06-01-2024 History of Presen t illness Narrative Referring Provider: Chief Complaint: Recently diagnosed CaP HPI: 63 year old male from [place], [place] with a PMHx of COPD (40 pack-year smoker), Afib (on ASA), and GERD diagnosed with CAP in 05/20 which showed 2 cores of Offerle 6 disease. He has sever COPD with shortness of breath on exertion and O2 saturation in high 80s. He was started on . In , his PSA was 4.22 and his urology decided to repeat a biopsy with 8/18 cores positive for Offerle 6 disease. Past surgical Hx: total hip [...] review Assessment 63 year old male from [place], [place] with a PMHx of COPD (40 pack-year smoker and poor oxygenation status), Afib (on ASA), and GERD diagnosed with CAP in 05/20 which showed 2 cores of Offerle 6 disease. Recently had more + cores [...] Amandeep Crisostomo MD documented in this encounter [facility] 06-01-2024 Note Patient Outreach (UR OLMN) MATEO STEARNS ([id number]) 1960 M Date Time Provider Department 06/01/24 AMANDEEP CRISOSTOMO During your visit today, we recorded the following information about you: Allergies As of Date: 06/01/2024 (No Known Allergies) Date Reviewed: 06/01/2024 Reviewed by: Garrett Davis MA - Fully Assessed Visit Diagnosis:Screening for genitourinary condition [Z13.89] Order(s):URINALYSIS, REFLEX MICROSCOPIC [LUF9557] Order #: [id number]. #:[id number] Prescriptions as of 06/04/2024 - aspirin, enteric [...] Marijuana smoker [F12.90] 05/16/2013 Encounter Status:Closed by NESHA DOYLE on 06/04/24 [facility] 05-21-2024 Hospital Discharg e instructions Patient [...] the likelihood that the cancer will spread. Offerle 6 or lower: This indicates that the cancer cells look similar to normal prostate cells (well differentiated). Brenden 7: This indicates that the cancer cells look somewhat similar to normal prostate cells (moderately differentiated). Offerle 8, 9, or 10: This indicates that [...] stress of having cancer. General instructions Take vbng-ong-qhiiyzc and prescription medicines only as told by your health care provider. If you have to go to the hospital, notify your cancer specialist (oncologist). Keep all follow-up visits. This is important. Where to find more information [employer]: www.cancer.org [place] Society of Clinical Oncology: www.cancer.net National Cancer Capac: www.cancer.gov Contact a health care provider if: [...] provider. Document Revised: 02/10/2022 Document Reviewed: 02/10/2022 [employer] Patient Education 2022 [employer]. Follow Up Care 01/02/2024 13:58:04 With:DIONY CHANDLER, Rufina Reina, URL Address: [facility] [address] , [place] [address]- [phone] When: Unknown [facility] 05-01-2024 Hospital Discharg e instructions [...] for your post-operative appointment in 1-2 weeks [phone] or [phone] Follow Up Care 03/15/2024 14:41:59 With:Rufina DIONY Address: [address] [place] [address] [place] [address]- Business (1) When: Unknown Comments:Keep scheduled appointment [facility] 05-01-2024 Note [id number] [facility] 06-06-2023 Hospital Discharg e instructions Patient [...] under a microscope. This is called the Offerle score and the total score can range [...] similar to normal prostate cells (moderately differentiated). Offerle 8, 9, or 10: This indicates that [...] stress of having cancer. General instructions Take ktaz-tjs-xenidba and prescription medicines only as told by your health care provider. If you have to go to the hospital, notify your cancer specialist (oncologist). Keep all follow-up visits. This is important. Where to find more information [employer] Society: www.cancer.org [employer] Society of Clinical Oncology: www.cancer.net National Cancer Capac: www.cancer.gov Contact a health care provider if: [...] provider. Document Revised: 02/10/2022 Document Reviewed: 02/10/2022 [employer] Patient Education 2022 [employer]. Follow Up Care 04/27/2023 15:15:09 With:DIONY CHANDLER, Rufina Reina, URL Address: [facility] [address] , [place] [address]- [phone] When:Within 6 Month(s) Comments:PSA and ANNE-MARIE [facility] 05-17-2023 Hospital Discharg e instructions [...] for your post-operative appointment in 1-2 weeks [phone] or [phone] Follow Up Care 04/27/2023 15:25:07 With:Rufina VALDEZ Address: [facility] [address], [place] [address]- Business (1) When: Unknown Comments:Keep scheduled appointment [facility] 02-07-2023 Hospital Discharg e instructions Patient [...] if anything looks unusual. Men with a edogpr-teck-ehthss risk for skin cancer may want to see a tuberculosis specialist (fuel cell designer) for an annual body check. Where to find more information National Cancer Capac: https://www.cancer.gov/about-ca ncer/screening Centers for Disease Control and Prevention: https://www.cdc.gov/cancer/dcpc /prevention/screening.htm [employer] Society: https://www.cancer.org/latest-n ews/3-uvxtzl-huijsfsaz-tests-fo r-men.html Contact a health care provider if: [...] 08/11/2017 Document Revised: 08/03/2019 Document Reviewed: 08/11/2017 [employer] Patient Education 2020 [employer] Follow Up Care 12/10/2022 10:33:39 With:DIONY CHANDLER, Rufina Reina, URL Address: [facility] [address], [place] [address]- When: Unknown [facility] [place] 05-17-2022 Hospital Discharg e instructions Patient Education 05/17/2022 13:40:29 Epidermal Cyst, Getq-js-Urny Epidermal Cyst An epidermal cyst is a [...] yourself. Follow these instructions at home: Take ouyi-fka-ohzegmt and prescription medicines only as told by [...] the cyst, or to remove it. Take fuij-ozj-inqcosc and prescription medicines only as told by [...] 12/22/2005 Document Revised: 03/06/2020 Document Reviewed: 08/23/2019 [employer] Patient Education 2020 [employer] 04/19/2022 08:23:29 Testicular Self-Exam Testicular Self-Exam [...] 02/20/2002 Document Revised: 03/06/2020 Document Reviewed: 10/10/2017 [employer] Patient Education 2019 [employer] Follow Up Care 03/17/2022 10:53:14 With:Rufina VALDEZ MD, URL Address: [facility] [address], [place] [address]- When: Unknown [facility] Evaluation + Plan note Future Appointments Appointment Date:06/08/2022 08:45:00 AM Scheduled Provider: Location:[facility] Appointment Type:Urology CALL PAT FT Appointment Date:06/15/2022 09:00:00 AM Scheduled Provider: Location:[facility] Appointment Type:Urology FT [facility] Evaluation + Plan note Future Appointments Appointment Date:08/23/2022 12:30:00 PM Scheduled Provider:Rufina VALDEZ MD Location:[facility] Appointment Type:URO Office Visit [facility] Evaluation + Plan note Future Appointments Appointment Date:06/06/2023 09:45:00 AM Scheduled Provider:Rufina VALDEZ MD Location:[facility] Appointment Type:URO Office Visit Diagnostic Tests PendingProstate Histology ([facility]) 05/17/23 [facility] Evaluation + Plan note Future Appointments Appointment Date:12/09/2023 10:45:00 AM Scheduled Provider:[facility] Office Visit Diagnostic Tests PendingPSA Total 06/06/23 [facility] Evaluation + Plan note Future Appointments Appointment Date:05/21/2024 11:30:00 AM Scheduled Provider:Rufina VALDEZ MD Location:[facility] Appointment Type:URO Office Visit Diagnostic Tests PendingProstate Histology ([facility]) 05/01/24 [facility] Evaluation + Plan note [facility] Evaluation note No Assessments Infor mation Available [facility] Evaluation note Diagnosis Screening for genitourinary condition Screening for other and unspecified genitourinary condition documented [facility] Diagnosis Malignant neoplasm of prostate (HCC)- Primary Malignant neoplasm of prostate [facility] Diagnosis Prostate cancer (HCC)- Primary Malignant neoplasm of prostate documented in [facility]* Diagnosis Malignant neoplasm of prostate (HCC)- Primary Malignant neoplasm of prostate documented in this [facility] Narrative No data available for this section [facility] Hospital Discharge instructions No data available for this section [facility] No data available for this section [facility] [employer] reason for referral (narrative) Referred by: DIONY CHANDLER, Rufina Reina [facility] [employer] Summary Purpose Family History No Family History [...] section and content) DATE CREATED AUTHOR 04/01/2021 [facility] DATE CREATED AUTHOR AUTHOR'S ORGANIZ ATION 04/13/2023 [facility] DATE CREATED AUTHOR AUTHOR'S ORGANIZ ATION 02/29/2024 [facility] EPIC DATE CREATED AUTHOR AUTHOR'S ORGANIZ ATION 05/18/[address] [facility] DATE CREATED AUTHOR AUTHOR'S ORGANIZ ATION 05/22/[address] [facility] DATE CREATED AUTHOR AUTHOR'S ORGANIZ ATION 09/13/2024 [facility] Care Team (unrecognized sect ion and content) Staff Command And Control Officer Relationship Specialty Start Date End Date Curt De Dios MD [address] [place] [phone] PCP - General Family Medicine 11/11/23 Kathie Sánchez NP [address] [place] [phone] Nurse Practitioner Family Medicine 10/03/23 Staff Command And Control Officer Relationship Specialty Start Date End Date Peter Arceo DO PCP - General Family Medicine 05/11/13 Staff Command And Control Officer Relationship Specialty Start Date End Date Kathie Sánchez CNP [address] [place] [address] PCP - General Family Medicine 06/21/24 Staff Command And Control Officer Relationship Specialty Start Date End Date Peter Arceo DO PCP - General Family Medicine 05/11/13 06/20/24 Staff Command And Control Officer Relationship Specialty Start Date End Date Kathie Sánchez TUFTING MACHINE OPERATOR [address] [place] [address] PCP - General Family Medicine 06/21/24 Staff Command And Control Officer Relationship Specialty Start Date End Date Kathie Sánchez NP [address] [place] [phone] PCP - Crow LAFLEUR 12/29/23 Curt De Dios MD [address] [place] [phone] PCP - General Family Medicine 02/28/24 Kathie Sánchez NP [address] [place] [address] Nurse Practitioner Family Medicine 10/03/23 Kathie Sánchez NP [address] [place] [phone] Nurse Practitioner Family Medicine 02/28/24 Staff Command And Control Officer Relationship Specialty Start Date End Date Kathie Sánchez CNP [address] [place], [place] [id number] PCP - General Family Medicine 06/21/24 Source Comments (unrecognize d section and content) In the event this informatio n is protected by the Federal Confidentiality of Alcohol and Drug Abuse Patient Records regulations: The Federal rules restrict any use of the information to criminally investigate or prosecute any alcohol or drug abuse patient.[facility] Hospital[facility] the event this information is protected by the Federal Confidentiality of Alcohol and Drug Abuse Patient Records regulations: The Federal rules restrict any use of the information to criminally investigate or prosecute any alcohol or drug abuse patient.[facility] HospitalIn the event this information is protected by the Federal Confidentiality of Alcohol and Drug Abuse Patient Records regulations: The Federal rules restrict any use of the information to criminally investigate or prosecute any alcohol or drug abuse patient.[facility] HospitalIn the event this information is protected by the Federal Confidentiality of Alcohol and Drug Abuse Patient Records regulations: The Federal rules restrict any use of the information to criminally investigate or prosecute any alcohol or drug abuse patient.[facility] HospitalIn the event this information is protected by the Federal Confidentiality of Alcohol and Drug Abuse Patient Records regulations: The Federal rules restrict any use of the information to criminally investigate or prosecute any alcohol or drug abuse patient.[facility] Reason for Visit (unrecogniz ed section and content) Reason Comments Consult Reason Comments New Patient Elevated PSA Reason Comments Prostate Cancer Reason Comments Patient Education FOR RECORDS PERTAINING TO PATIENTS WHO ARE [...] BE BASED ON THE PRIMARY CLINICAL RECORDS. [employer] [facility]. provides no warranty or guarantee of the accuracy or completeness of information in this document.
--- NOTE | 2024-09-14 09:30 | XR_ITS ---
The [address] [address] Patient Name: MATEO STEARNS MRN: [id number] date: 1960 Sex: M Assigned Patient Location: [facility] Current Patient Location: Accession/Order Number: [id number] Exam Date: 09/14/2024 09:38 Report Date: 09/17/2024 14:00 At the request of: TANYA FELTON Procedure: XR cervical spine 2-3V EXAMINATION: XR cervical spine 2-3V HISTORY: Degenerative Disc Disease Cervical COMPARISON: 10/04/2023 FINDINGS: BONES: 4 mm anterolisthesis of C4 on C5. Mild to moderate spondylosis. Moderate facet osteoarthropathy. DISC SPACES: Altered level disc space narrowing PARASPINOUS: Negative. No paraspinous abnormality is seen. OTHER: Negative. XR/XR cervical spine 2-3V IMPRESSION: Stable moderate degenerative changes and L4 anterolisthesis Electronically authenticated by: OK CISNEROS Date: 09/17/2024 14:00
== END 2024-09-14 09:24 | disposition home or self-care (01) ==
PROVIDERS: PCP Nurse Practitioner; Visit Provider Nurse Practitioner
DX: M50.30 Other cervical disc degeneration, unspecified cervical region (principal)
CPT/HCPCS: 72040

== ENCOUNTER 2024-11-28 12:55 | Emergency (ER) | payer MEDICARE, MEDICAID, SELFPAY ==
--- OUTSIDE RECORDS SUMMARY | 2024-11-28 13:01 | XMS_ITS | CCD ---
Author Organization [facility] Care Team Providers Care Industrial Management Teacher Name Role Phone Bryan Quick Attending Provider [phone] PRINCESS KATHIE Les Primary Care Physician AICHHOLZ, TANK BUILDER SUPERVISOR KATHIE Primary Care Unavailable DR LEONOR MA Consulting Unavailable SAMSA ., ROBERTO Admitting Unavailable SAMSA ., ROBERTO Attending Unavailable SAMSA ., ROBERTO Consulting Unavailable AICHHOLZ, TANK BUILDER SUPERVISOR KATHIE Admitting Unavailable AICHHOLZ, TANK BUILDER SUPERVISOR KATHIE Attending Unavailable AICHHOLZ, TANK BUILDER SUPERVISOR KATHIE Consulting Unavailable AICHHOLZ, TANK BUILDER SUPERVISOR KATHIE Primary Care Unavailable AICHHOLZ, TANK BUILDER SUPERVISOR KATHIE Admitting Unavailable AICHHOLZ, TANK BUILDER SUPERVISOR KATHIE Primary Care Unavailable AICHHOLZ, TANK BUILDER SUPERVISOR KATHIE Attending Unavailable AICHHOLZ, TANK BUILDER SUPERVISOR KATHIE Consulting Unavailable AICHHOLZ, TANK BUILDER SUPERVISOR KATHIE Primary Care Unavailable DR LEONOR MA Consulting Unavailable SAMSA ., ROBERTO Admitting Unavailable SAMSA ., ROBERTO Attending Unavailable SAMSA ., ROBERTO Consulting Unavailable DR LEONOR MA Consulting Unavailable SAMSA ., ROBERTO Admitting Unavailable SAMSA ., ROBERTO Attending Unavailable SAMSA ., ROBERTO Consulting Unavailable DR ELSA NOBLE Admitting Unavailable DR OK CISNEROS V Consulting Unavailable AICHHOLZ, TANK BUILDER SUPERVISOR KATHIE Primary Care Unavailable DR ELSA NOBLE Attending Unavailable DR ELSA NOBLE Consulting Unavailable SAMSA ., ROBERTO Admitting Unavailable AICHHOLZ, TANK BUILDER SUPERVISOR KATHIE Primary Care Unavailable SAMSA ., ROBERTO Attending Unavailable SAMSA ., ROBERTO Consulting Unavailable SAMSA ., ROBERTO Admitting Unavailable AICHHOLZ, TANK BUILDER SUPERVISOR KATHIE Primary Care Unavailable DR LEONOR MA Consulting Unavailable SAMSA ., ROBERTO Attending Unavailable SAMSA ., ROBERTO Consulting Unavailable Aichholz CHECK PILOT, Kathie Unavailable Lanre CHANDLER, Curt Primary Care Provider [phone] VORA, Rufina R Attending Unavailable VORA, Rufina R Attending Unavailable VORA, Rufina R Attending Unavailable VORA, Rufina R Attending Unavailable VORA, Rufina R Admitting Unavailable VORA, Rufina R Referring Unavailable VORA, Rufina R Attending Unavailable Bhat DO, Peter Cruz Primary Care Provider Aichholz TANK BUILDER SUPERVISOR, Kathie Jessika Primary Care Provider Bhat DO, Peter Cruz Primary Care Provider Aichholz CHECK PILOT, Kathie Unavailable Aichholz CHECK PILOT, Kathie Unavailable Lanre CHANDLER, Curt Primary Care Provider [phone] Aichholz CHECK PILOT, Kathie Unavailable Umu Schultz Unavailable Unavailable AICHHOLZ, KATHIE Attending Unavailable AICHHOLZ, KATHIE Attending Unavailable AICHHOLZ, KATHIE Attending Unavailable ENGELER, G GOPAL Referring Unavailable AICHHOLZ, KATHIE JESSIKA Primary Care Unavailable ENGELER, G GOPAL Referring Unavailable AICHHOLZ, KATHIE JESSIKA Primary Care Unavailable ENGELER, G GOPAL Attending Unavailable AICHHOLZ, KATHIE JESSIKA Primary Care Unavailable ENGELER, G GOPAL Referring Unavailable AICHHOLZ, KATHIE JESSIKA Primary Care Unavailable ENGELER, G GOPAL Referring Unavailable AICHHOLZ, KATHIE JESSIKA Primary Care Unavailable ENGELER, G GOPAL Attending Unavailable AICHHOLZ, KATHIE JESSIKA Primary Care Unavailable ENGELER, G GOPAL Referring Unavailable AICHHOLZ, KATHIE JESSIKA Primary Care Unavailable ENGELER, G GOPAL Referring Unavailable AICHHOLZ, KATHIE JESSIKA Primary Care Unavailable ENGELER, G GOPAL Attending Unavailable AICHHOLZ, KATHIE JESSIKA Primary Care Unavailable ENGELER, G GOPAL Attending Unavailable AICHHOLZ, KATHIE JESSIKA Primary Care Unavailable ENGELER, G GOPAL Referring Unavailable AICHHOLZ, KATHIE JESSIKA Primary Care Unavailable ENGELER, G GOPAL Referring Unavailable AICHHOLZ, KATHIE JESSIKA Primary Care Unavailable ENGELER, G GOPAL Referring Unavailable AICHHOLZ, KATHIE JESSIKA Primary Care Unavailable AICHHOLZ, KATHIE JESSIKA Primary Care Unavailable ENGELER, G GOPAL Referring Unavailable AICHHOLZ, KATHIE JESSIKA Primary Care Unavailable ENGELER, G GOPAL Referring Unavailable AICHHOLZ, KATHIE JESSIKA Primary Care Unavailable ENGELER, G GOPAL Referring Unavailable AICHHOLZ, KATHIE JESSIKA Primary Care Unavailable ENGELER, G GOPAL Attending Unavailable [facility] Primary Care Unavailable AICHHOLZ, KATHIE JESSIKA Primary Care Unavailable ENGELER, G GOPAL Referring Unavailable ENGELER, G GOPAL Referring Unavailable AICHHOLZ, KATHIE JESSIKA Primary Care Unavailable ENGELER, G GOPAL Attending Unavailable AICHHOLZ, KATHIE JESSIKA Primary Care Unavailable ENGELER, G GOPAL Referring Unavailable AICHHOLZ, KATHIE JESSIKA Primary Care Unavailable ENGELER, G GOPAL Attending Unavailable AICHOLZ, KATHIE JESSIKA Primary Care Unavailable ENGELER, G GOPAL Referring Unavailable AICHHOLZ, KATHIE JESSIKA Primary Care Unavailable ENGELER, G GOPAL Referring Unavailable AICHHOLZ, KATHIE JESSIKA Primary Care Unavailable ENGELER, G GOPAL Referring Unavailable AICHHOLZ, KATHIE JESSIKA Primary Care Unavailable ENGELER, G GOPAL Attending Unavailable ENGELER, G GOPAL Referring Unavailable AICHHOLZ, KATHIE JESSIKA Primary Care Unavailable ENGELER, G GOPAL Referring Unavailable AICHOLZ, KATHIE JESSIKA Primary Care Unavailable ENGELER, G GOPAL Referring Unavailable AICHOLZ, KATHIE JESSIKA Primary Care Unavailable ENGELER, G GOPAL Attending Unavailable AICHOLZ, KATHIE JESSIKA Primary Care Unavailable ENGELER, G GOPAL Referring Unavailable AICHOLZ, KATHIE JESSIKA Primary Care Unavailable ENGELER, G GOPAL Attending Unavailable RUFINA VORA Referring Unavailable BHATPETER A Primary Care Unavailable AMANDEEP CRISOSTOMO Unavailable PETER BHAT Primary Care Unavailable ENGELER, G GOPAL Referring Unavailable AICHHOLZ, KATHIE JESSIKA Primary Care Unavailable ENGELER, G GOPAL Attending Unavailable AICHHOLZ, KATHIE JESSIKA Primary Care Unavailable ENGELER, G GOPAL Referring Unavailable AICHHOLZ, KATHIE JESSIKA Primary Care Unavailable ENGELER, G GOPAL Referring Unavailable AICHHOLZ, KATHIE JESSIKA Primary Care Unavailable ENGELER, G GOPAL Attending Unavailable ENGELER, G GOPAL Referring Unavailable AICHHOLZ, KATHIE JESSIKA Primary Care Unavailable ENGINGERSevero Attending Unavailable ENGELER, G GOPAL Referring Unavailable AICHOLZ, KATHIE JESSIKA Primary Care Unavailable AICHHOLMatias, KATHIE JESSIKA Primary Care Unavailable ENGELER, Severo MILLER Attending Unavailable ENGELER, G GOPAL Referring Unavailable AICHOLZ, KATHIE JESSIKA Primary Care Unavailable ENGELER, G GOPAL Referring Unavailable AICHOLZ, KATHIE JESSIKA Primary Care Unavailable ENGELER, G GOPAL Referring Unavailable [facility] K[facility]IE JESSIKA Primary Care Unavailable ENGELER, G GOPAL Referring Unavailable AICHOLZ, KATHIE JESSIKA Primary Care Unavailable ENGELER, G GOPAL Referring Unavailable AICHOLZ, KATHIE JESSIKA Primary Care Unavailable ENGELER, G GOPAL Referring Unavailable [facility] K[facility] JESSIKA Primary Care Unavailable Allergies Allergy Classification Reported Allergen(s) Allergy Type Date of Onset Reaction(s) Facility (1 source) No Known Medication Allergies; Translations: [No Known Medication Allergies] Propensity to adverse reactions (disorder) [facility] Medications Current Medications Medication Drug Class(es) Dates Sig (Normalized) Sig (Original) Albuterol (20 sources) beta2-Adrenergic Agonist take 2 puff(s) by inhalation every four hours for wheezing albuterol HFA 90 mcg/act inhaler Inhale 2 puffs every 4 (four) hours if needed for wheezing Active ALBUTEROL SULFAT E (PROVENTIL HFA INHALATION) Inhale as instructed. Active ALBUTEROL SULFAT E (PROVENTIL HFA INHALATION) [...] aspirin 81 mg delayed release oral tablet (20 sources) Platelet Aggregation Inhibitor, Nonsteroidal Anti-inflammatory Drug [...] Start Date: 05/17/22 Status: Ordered Tessalon Perles (20 sources) Non-narcotic Antitussive Start: 08-05-2022 Malou Alvarez Oral, q12hr, PRN Cough Start Date: 08/05/22 Status: Ordered take 1 capsule by [facility] three times daily as needed for cough Benzonatate 200 mg capsule take 1 capsul e by mouth 3 times a day as needed for cough Active Budesonide / formoterol (20 sources) Corticosteroid, beta2-Adrenergic Agonist take 2 puff(s) [...] AFTER USE* Active take 2 puff(s) by mouth twice [...] Status: Ordered cycloSPORINE 0.5 mg/ml ophthalmic suspension (20 sources) Calcineurin Inhibitor Immunosuppressant Start: 05-14-2024 take 1 drop(s) into the eye(s) twice daily RESTASIS 0.05 % ophthalmic emulsion APPLY ONE DROP IN BOTH EYES 2 TIMES A DAY. 05/14/2024 Active Start: 05-14-2024 take 1 drop(s) into the eye(s) every twelve hours Restasis 0.05 % ophthalmic emulsion Administer 1 drop into both eyes every 12 (twelve) hours 05/14/2024 Active doxycycline hyclate 100 mg oral tablet (20 sources) Tetracycline-class Drug Start: 05-16-2013 take 1 tablet by mouth twice daily doxycycline 100 mg tablet Take 1 tablet by mouth twice daily. 14 tablet 0 05/16/2013 Active fluticasone / salmeterol (20 sources) Corticosteroid, beta2-Adrenergic Agonist take 1 puff(s) by inhalation twice daily fluticasone-salm eterol (ADVAIR DISKUS) 250-50 mcg/dose DsDv Inhale 1 Puff as instructed twice daily. Active take 1 puff(s) by in halation twice daily fluticasone-salmeterol (ADVAIR DISKUS) 2 50-50 mcg/dose DsDv Inhale 1 Puff as instructed twice daily. 0 Active 12 hr guaiFENesin 600 mg extended release oral tablet (20 sources) guaiFENesin (MUC INEX) 600 mg 12 hr tablet Take 1,200 mg by mouth. Active predniSONE 10 mg oral tablet (20 sources) Start: 01-02-2024 predniSONE (DE LTASONE) 10 mg tablet Refills(s) 0 01/02/2024 Active Start: 01-02-2024 predniSONE 10 mg Tab Refills(s) 0 Start Date: 01/02/24 Status: Ordered Start: 05-16-2013 predniSONE 20 mg tablet Take 2 pills daily x 3 days 6 tablet 0 05/16/2013 Active Roflumilast (20 sources) Phosphodiesterase 4 Inhibitor Start: 01-02-2024 Roflumilast [...] Active sodium chloride 9 mg/ml inhalation solution (10 sources) sodium chloride 0.9 % nebulizer solution Take 3 mL by nebulization if needed for wheezing Active Sodium Phosphate, Dibasic / Sodium Phosphate, Monobasic (1 source) Start: 4 Fleet Enema 133 mL, Rectal, Once, 133 mL, Refill(s) 0, [facility]/pharmacy #[id number], 175, cm, 01/02/24 12:45:00 EST, Height/Length Dosing, 63.1, kg, 01/02/24 12:45:00 EST, Weight Dosing Start Date: 04/17/24 Status: Ordered 60 actuat tiotropium 0.0025 mg/actuat inhalation spray (20 sources) Anticholinergic Start: 2 take 1 puff(s) [...] Refill(s) 0 Start Date: 05/17/22 Status: Ordered Completed/Discontinued Medications Medication Drug Class(es) Dates Sig (Normalized) Sig (Original) 24 hr dilTIAZem hydrochloride 180 mg extended release oral capsule (20 sources) Calcium Channel Torres Start: 05-17-2022 End: 01-14-2025 take 1 capsule by mouth once daily dilTIAZem XR (Dilacor XR) 180 MG 24 hr capsule Indications: Atrial fibrillation (CMS/HCC) Take 1 capsule (180 mg) by mouth Daily 90 capsule 1 07/16/2024 10/16/2024 Discontinued (Reorder) Start: 05-17-2022 Dilt-XR 180 mg /24 hours oral capsule, extended release Refills(s) 0 Start Date: 05/17/22 Status: Ordered take 1 capsule by [facility] every twenty-four hours in the morning dilTIAZem XR (Dilacor XR) 180 MG 24 hr capsule Take 180 mg by mouth in the morning. 0 Active ibuprofen 800 mg oral tablet (20 sources) Nonsteroidal Anti-inflammatory Drug Start: 09-13-2024 End: 10-13-2024 take 1 tablet by mouth every eight hours for pain ibuprofen 800 MG tablet Indications: Other chronic pain Take 1 tablet (800 mg) by mouth every 8 (eight) hours if needed for mild pain Take with food 90 tablet 1 09/13/2024 10/13/2024 End: 09-13-2024 take 1 tablet by mouth every six hours as needed for pain ibuprofen 800 MG tablet Take 800 mg by mouth every 6 (six) hours if needed for mild pain 09/13/2024 Discontinued (Reorder) IBUPROFEN (ADVIL ORAL) Take by mouth. Active IBUPROFEN (ADVIL ORAL) Take by mouth. 0 Active pantoprazole 40 mg delayed release oral tablet (20 sources) Proton Pump Inhibitor Start: 08-05-2022 take 1 dose by mouth once daily Start: 05-30-2019 End: 01-14-[address] (PROTONIX) 4 0 mg tablet Take 40 mg by mouth. 05/30/2019 Active tiZANidine 4 mg oral tablet (9 sources) Central alpha-2 Adrenergic Agonist Start: 09-13-2024 End: 01-14-2025 tiZANidine (Zanaflex) 4 MG tablet Indications: DDD (degenerative disc disease), cervical Take 1 tablet (4 mg) by mouth as needed at bedtime for muscle spasms for up to 15 days May take 1/2-1 pill at bedtime 15 tablet 09/13/2024 10/16/2024 Discontinued (Reorder) Problems Active Problems Problem Classification Problem Date Documented Da te Episodic/Chronic Alcohol-related disorders (20 sources) Alcohol dependence, uncomplicated; Translations: [Alcoholism] Onset: 3 05-16-2013 Chronic Anxiety disorders (9 sources) Anxiety disorder; Translations: [Anxiety disorder, unspecified] Onset: 7 02-28-2024 Chronic Aortic; peripheral; and visceral artery aneurysms (20 sources) Abdominal aortic aneurysm without rupture; Translations: [Abdominal aortic aneurysm (AAA) without rupture] Onset: 4 04-10-2024 Chronic Cancer of prostate (20 sources) Malignant neoplasm of prostate; Translations: [Malignant tumor of prostate] Onset: 3 Chronic Cardiac dysrhythmias (12 sources) Atrial fibrillation; Translations: [Unspecified atrial fibrillation] Onset: 3 11-12-2023 Chronic Chronic obstructive pulmonary disease and bronchiectasis (20 sources) Emphysema, unspecified; Translations: [Chronic obstructive lung disease] Onset: 3 05-16-2013 Chronic Coagulation and hemorrhagic disorders (10 sources) Thrombophilia; Translations: [Other thrombophilia] Onset: 4 09-13-2024 Chronic Disorders of lipid metabolism (9 sources) Mixed hyperlipidemia; Translations: [Mixed hyperlipidemia] Onset: 4 02-28-2024 Chronic Esophageal disorders (20 sources) Gastroesophageal reflux disease; Translations: [Gastro-esophageal reflux disease without esophagitis] Onset: 4 04-19-2022 Chronic Gout and other crystal arthropathies (17 sources) Gout; Translations: [Gout, unspecified] Onset: 4 04-19-2022 Chronic Osteoarthritis (17 sources) Arthritis; Translations: [Osteoarthritis of left hip joint] Onset: 7 04-19-2022 Chronic Other gastrointestinal disorders (16 sources) Scrotal mass; Translations: [Follicular cyst of the skin and subcutaneous tissue, unspecified] Onset: 4 04-19-2022 Episodic Other nervous system disorders (17 sources) Neuropathy; Translations: [Polyneuropathy, unspecified] Onset: 4 04-19-2022 Chronic Other nervous system disorders (10 sources) Carpal tunnel syndrome of right wrist; Translations: [Carpal tunnel syndrome, right upper limb] Onset: 3 10-27-2023 Chronic Other nervous system disorders (9 sources) Chronic pain; Translations: [Other chronic pain] Onset: 4 09-13-2024 Chronic Other screening for suspected conditions (not mental disorders or infectious disease) (2 sources) Encounter for screening for malignant neoplasm of prostate; Translations: [Screening for malignant neoplasm done] Onset: 2 Episodic Other skin disorders (4 sources) Sebaceous cyst of skin; Translations: [Sebaceous cyst] Onset: 2 Episodic Peripheral and visceral atherosclerosis (10 sources) Atherosclerosis of aorta; Translations: [Atherosclerosis of aorta] Onset: 4 09-13-2024 Chronic Pleurisy; pneumothorax; pulmonary collapse (8 sources) Focal atelectasis 04-19-2022 Episodic Respiratory failure; insufficiency; arrest (adult) (19 sources) Chronic hypoxemic respiratory failure; Translations: [Chronic respiratory failure with hypoxia] Onset: 4 04-19-2022 Chronic Spondylosis; intervertebral disc disorders; other back problems (11 sources) Degeneration of cervical intervertebral disc; Translations: [Other cervical disc degeneration, unspecified cervical region] Onset: 4 09-13-2024 Chronic Unclassified (8 sources) Patient encounter status 05-17-2022 Unclassified (8 sources) Sebaceous cyst of skin 05-17-2022 Unclassified (1 source) COUGH, UNSPECIFIED; Translations: [COUGH, UNSPECIFIED] Onset: 2 Unclassified (1 source) CONTACT W/AND (SUSP) EXPOS COVID-19; Translations: [CONTACT W/AND (SUSP) EXPOS COVID-19] Onset: 2 Past or Other Problems Problem Classification Problem Date Documented Date Episodic/Chronic Mood disorders (9 sources) Mood disorders Onset: 02-28-2024 02-28-2024 Other aftercare (1 source) Other snf (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 therapy; Translations: [OTH CUSTODIAL CURRENT [...] Onset: 05-03-2022 Episodic Other lower respiratory disease (9 sources) Lung mass; Translations: [Other nonspecific abnormal finding of lung field] Onset: 02-28-2024 02-28-2024 Episodic Other nervous system disorders (20 sources) Impairment of balance; Translations: [Other abnormalities of gait and mobility] Onset: 05-16-2013 05-16-2013 Episodic Other nutritional; endocrine; and metabolic disorders (1 source) Abnormal weight loss; Translations: [ABNORMAL WEIGHT LOSS] Onset: 08-19-2022 Episodic Residual codes; unclassified (20 sources) Tobacco user; Translations: [Tobacco use] Onset: 05-16-2013 05-16-2013 Episodic Screening and history of mental health and substance abuse codes (1 source) Personal history of nicotine dependence; Translations: [PERSONAL HISTORY OF NICOTINE DEPEND] Onset: 08-13-2022 Episodic Spondylosis; intervertebral disc disorders; other back problems (9 sources) Lumbar radiculopathy; Translations: [Radiculopathy, lumbar region] Onset: 02-28-2024 02-28-2024 Episodic Substance-related disorders (20 sources) Marijuana user; Translations: [Cannabis use, unspecified, uncomplicated] Onset: 05-16-2013 05-16-2013 Episodic Unclassified (9 sources) Onset: 02-28-2024 02-28-2024 Results Test Name Value Interpretation Reference Range Facility [facility] 11-02-2024 CNOV Office Visit (RADTSA ) MATEO STEARNS ([id number]) 1960 M Date Time Provider Department 11/02/24 10:30 AM Severo DENT During your visit today, we recorded the following information about you: Temperature Pulse Respiration Blood pressure 98.4 degrees 100/minute 18/minute 118/82 Severo Dent MD 11/09/2024 11:44 AM Signed Radiation Oncology - On Treatment Review (OTR) Note PATIENT NAME: Mateo Stearns PATIENT DIAGNOSIS: Prostate adenocarcinoma, initial PSA 4.46, biopsy [place] score 3 + 3 = 6 (grade group 1), clinical stage T1c, N0, M0, stage I [cT1a-c/T2a, N0, M0, PSA <10, GG 1] (AJCC 8th ed.), s/p TRUS Random biopsy. COURSE: definitive AREA TREATED: Pelvis/prostate CURRENT DOSE: 7000 cGy in 28fx PLANNED DOSE: 7000 cGy in 28 fx SUBJECTIVE: No significant changes. EXAM: 11/02/24 1033 BP: 118/82 Pulse: 100 Resp: 18 Temp: 36.9 ?C (98.4 ?F) SpO2: 97% KPS: 100 General Appearance: Alert and oriented. No acute distress. Radiation dermatitis: No IMAGING/LAB RESULTS: Hemoglobin (g/dL) Date Value 10/11/2024 14.8 Hematocrit (%) Date Value 10/11/2024 43.8 WBC (k/uL) Date Value 10/11/2024 14.12 Platelet Count (k/uL) Date Value 10/11/2024 317 Treatment chart checked: Yes Patient treatment site reviewed and verified:Yes Port films reviewed and current:Yes Medications started: None ASSESSMENT/PLAN: Patient finishes today. He has done well. Follow-up as scheduled. Severo Dent MD Allergies As of Date: 11/02/2024 (No Known Allergies) Date Reviewed: 10/15/2024 Reviewed by: Dayanna Call LPN - Fully Assessed Reason for Visit: Radiotherapy On-treatment Visit [1722] Primary Visit Diagnosis:Malignant neoplasm of prostate (HCC) [C61] Order(s):PROSTATE-SPE CIFIC ANTIGEN DIAGNOSTIC [SQPSA] Order #: [id number] FUTURE Prescriptions as of 11/09/2024 - predniSONE (DELTASONE) 10 mg tablet Refills(s) [...] IBUPROFEN (ADVIL ORAL) Take by mouth. - fluticasone-salmetero l (ADVAIR DISKUS) 250-50 mcg/dose DsDv Inhale 1 Puff as instructed twice daily. - doxycycline 100 mg tablet Take 1 tablet by mouth twice daily. - predniSONE 20 mg tablet Take 2 pills daily x 3 days Problem List As Of Date 11/02/2024 Noted Resolved Imbalance [R26.89] 05/16/2013 COPD (chronic obstructive pulmonary disease) [J*05/16/2013 Tobacco abuse [Z72.0] 05/16/2013 Alcoholism [F10.20] 05/16/2013 Marijuana smoker [F12.90] 05/16/2013 Prostate cancer (HCC) [C61] 06/24/2024 Encounter Status:Closed by Severo DENT on 11/09/24 [facility] 10[facility]29-[facility]24 CNOV Office Visit (RADTSA ) MATEO STEARNS ([id number]) 1960 Date Time Provider Department 10/29/24 10:30 AM Severo DENT During your visit today, we recorded the following information about you: Temperature Pulse Respiration Blood pressure 97.9 degrees 81/minute 18/minute 126/84 Weight 67.7 kg Severo Dent MD 10/29/2024 10:54 AM Signed Radiation Oncology - On Treatment Review (OTR) Note PATIENT NAME: Mateo Stearns PATIENT DIAGNOSIS: Prostate adenocarcinoma, initial PSA 4.46, biopsy [place] score 3 + 3 = 6 (grade group 1), clinical stage T1c, N0, M0, stage I [cT1a-c/T2a, N0, M0, PSA <10, GG 1] (AJCC 8th ed.), s/p TRUS Random biopsy. COURSE: definitive AREA TREATED: Pelvis/prostate CURRENT DOSE: 6000 cGy in 24 fx PLANNED DOSE: 7000 cGy in 28 fx SUBJECTIVE: No significant changes. Mild diarrhea. Mild increased urinary frequency. EXAM: 10/29/24 1028 BP: 126/84 Pulse: 81 Resp: 18 Temp: 36.6 ?C (97.9 ?F) SpO2: 95% Weight: 67.7 kg (149 lb 4 oz) KPS: 100 General Appearance: Alert and oriented. No acute distress. Radiation dermatitis: No IMAGING/LAB RESULTS: Hemoglobin (g/dL) Date Value 10/11/2024 14.8 Hematocrit (%) Date Value 10/11/2024 43.8 WBC (k/uL) Date Value 10/11/2024 14.12 Platelet Count (k/uL) Date Value 10/11/2024 317 Treatment chart checked: Yes Patient treatment site reviewed and verified:Yes Port films reviewed and current:Yes Medications started: None ASSESSMENT/PLAN:Patie nt doing well. Chart and imaging reviewed. Continue radiation as outlined. Patient will finish later this week. Follow-up care discussed. Severo Dent MD Allergies As of Date: 10/29/2024 (No Known Allergies) Date Reviewed: 10/15/2024 Reviewed by: Dayanna Call LPN - Fully Assessed Reason for Visit: Radiotherapy On-treatment Visit [1722] Primary Visit Diagnosis:Malignant neoplasm of prostate (HCC) [C61] Prescriptions as of 10/29/2024 - predniSONE (DELTASONE) 10 mg tablet Refills(s) [...] IBUPROFEN (ADVIL ORAL) Take by mouth. - fluticasone-salmetero l (ADVAIR DISKUS) 250-50 mcg/dose DsDv Inhale 1 Puff as instructed twice daily. - doxycycline 100 mg tablet Take 1 tablet by mouth twice daily. - predniSONE 20 mg tablet Take 2 pills daily x 3 days Problem List As Of Date 10/29/2024 Noted Resolved Imbalance [R26.89] 05/16/2013 COPD (chronic obstructive pulmonary disease) [J*05/16/2013 Tobacco abuse [Z72.0] 05/16/2013 Alcoholism [F10.20] 05/16/2013 Marijuana smoker [F12.90] 05/16/2013 Prostate cancer (HCC) [C61] 06/24/2024 Encounter Status:Closed by Severo DENT on 10/29/24 [facility] 10[facility]22-2024 CNOV Office Visit (RADTSA ) MATEO STEARNS ([id number]) 1960 M Date Time Provider Department 10/22/24 10:30 AM Severo DENT RADTSA During your visit today, we recorded the following information about you: Temperature Pulse Respiration Blood pressure 97.1 degrees 71/minute 18/minute 127/81 Weight 67.6 kg Severo Dent MD 10/22/2024 10:51 AM Signed Radiation Oncology - On Treatment Review (OTR) Note PATIENT NAME: Mateo Stearns PATIENT DIAGNOSIS: Prostate adenocarcinoma, initial PSA 4.46, biopsy [place] score 3 + 3 = 6 (grade group 1), clinical stage T1c, N0, M0, stage I [cT1a-c/T2a, N0, M0, PSA <10, GG 1] (AJCC 8th ed.), s/p TRUS Random biopsy. COURSE: definitive AREA TREATED: Pelvis/prostate CURRENT DOSE: 5250 cGy in 21 fx PLANNED DOSE: 7000 cGy in 28 fx SUBJECTIVE: Diarrhea well-controlled with Imodium. Stable mild dysuria. No other changes. EXAM: 10/22/24 1026 BP: 127/81 Pulse: 71 Resp: 18 Temp: 36.2 ?C (97.1 ?F) SpO2: 91% Weight: 67.6 kg (149 lb 0.5 oz) KPS: 100 General Appearance: Alert and oriented. No acute distress. Radiation dermatitis: No IMAGING/LAB RESULTS: Hemoglobin (g/dL) Date Value 10/11/2024 14.8 Hematocrit (%) Date Value 10/11/2024 43.8 WBC (k/uL) Date Value 10/11/2024 14.12 Platelet Count (k/uL) Date Value 10/11/2024 317 Treatment chart checked: Yes Patient treatment site reviewed and verified:Yes Port films reviewed and current:Yes Medications started: None ASSESSMENT/PLAN:Leandro nt doing well. Chart and imaging reviewed. Continue radiation as outlined. G Gopal Dent MD Allergies As of Date: 10/22/2024 (No Known Allergies) Date Reviewed: 10/15/2024 Reviewed by: Dayanna Call LPN - Fully Assessed Reason for Visit: Radiotherapy On-treatment Visit [1722] Primary Visit Diagnosis:Malignant neoplasm of prostate (HCC) [C61] Prescriptions as of 10/22/2024 - predniSONE (DELTASONE) 10 mg tablet Refills(s) [...] IBUPROFEN (ADVIL ORAL) Take by mouth. - fluticasone-salmetero l (ADVAIR DISKUS) 250-50 mcg/dose DsDv Inhale 1 Puff as instructed twice daily. - doxycycline 100 mg tablet Take 1 tablet by mouth twice daily. - predniSONE 20 mg tablet Take 2 pills daily x 3 days Problem List As Of Date 10/22/2024 Noted Resolved Imbalance [R26.89] 05/16/2013 COPD (chronic obstructive pulmonary disease) [J*05/16/2013 Tobacco abuse [Z72.0] 05/16/2013 Alcoholism [F10.20] 05/16/2013 Marijuana smoker [F12.90] 05/16/2013 Prostate cancer (HCC) [C61] 06/24/2024 Encounter Status:Closed by Severo DENT on 10/22/24 [facility] CNOVon 10-15-2024 CNOV Office Visit (RADTSA ) JINNYMATEO Payan ([id number]) 1960 Date Time Provider Department 10/15/24 10:30 AM Severo DENT RADTSA During your visit today, we recorded the following information about you: Temperature Pulse Respiration Blood pressure 97.8 degrees 87/minute 16/minute 121/81 Weight 67.9 kg Severo Dent MD 10/15/2024 3:22 PM Signed Radiation Oncology - On Treatment Review (OTR) Note PATIENT NAME: Mateo Stearns PATIENT DIAGNOSIS: Prostate adenocarcinoma, initial PSA 4.46, biopsy [place] score 3 + 3 = 6 (grade group 1), clinical stage T1c, N0, M0, stage I [cT1a-c/T2a, N0, M0, PSA <10, GG 1] (AJCC 8th ed.), s/p TRUS Random biopsy. COURSE: definitive AREA TREATED: Pelvis/prostate CURRENT DOSE: 3750 cGy in 15 fx PLANNED DOSE: 7000 cGy in 28 fx SUBJECTIVE: Has had some mild diarrhea over the last week. Mild dysuria. No other changes. EXAM: 10/15/24 1045 BP: 121/81 Pulse: 87 Resp: 16 Temp: 36.6 ?C (97.8 ?F) SpO2: 95% Weight: 67.9 kg (149 lb 11.1 oz) KPS: 100 General Appearance: Alert and oriented. No acute distress. Radiation dermatitis: No IMAGING/LAB RESULTS: Hemoglobin (g/dL) Date Value 10/11/2024 14.8 Hematocrit (%) Date Value 10/11/2024 43.8 WBC (k/uL) Date Value 10/11/2024 14.12 Platelet Count (k/uL) Date Value 10/11/2024 317 Treatment chart checked: Yes Patient treatment site reviewed and verified:Yes Port films reviewed and current:Yes Medications started: None ASSESSMENT/PLAN: Patient doing well. Discussed diet and Imodium use for diarrhea. Chart and imaging reviewed. Continue radiation as outlined. WBC slightly elevated may reflect recent URI. I did recheck in 2 weeks. Severo Dent MD Allergies As of Date: 10/15/2024 (No Known Allergies) Date Reviewed: 10/15/2024 Reviewed by: Dayanna Call LPN - Fully Assessed Reason for Visit: Radiotherapy On-treatment Visit [1722] Primary Visit Diagnosis:Malignant neoplasm of prostate (HCC) [C61] Prescriptions as of 10/15/2024 - predniSONE (DELTASONE) 10 mg tablet Refills(s) [...] IBUPROFEN (ADVIL ORAL) Take by mouth. - fluticasone-salmetero l (ADVAIR DISKUS) 250-50 mcg/dose DsDv Inhale 1 Puff as instructed twice daily. - doxycycline 100 mg tablet Take 1 tablet by mouth twice daily. - predniSONE 20 mg tablet Take 2 pills daily x 3 days Problem List As Of Date 10/15/2024 Noted Resolved Imbalance [R26.89] 05/16/2013 COPD (chronic obstructive pulmonary disease) [J*05/16/2013 Tobacco abuse [Z72.0] 05/16/2013 Alcoholism [F10.20] 05/16/2013 Marijuana smoker [F12.90] 05/16/2013 Prostate cancer (HCC) [C61] 06/24/2024 Encounter Status:Closed by Severo DENT on 10/15/24 [facility] CBC W Auto Differential pane l (Bld)on 10-11-2024 Basophils (Bld) [#/Vol] 0.04 10*3/uL [facility] Differential cell count method Nom (Bld) Auto [facility] Eosinophils (Bld) [#/Vol] 0.07 10*3/uL [facility] Immature granulocytes (Bld) [#/Vol] 0.16 10*3/uL High [facility] Immature granulocytes/100 WBC (Bld) 1.1 % [facility] Lymphocytes (Bld) [#/Vol] 1.10 10*3/uL [facility] Monocytes (Bld) [#/Vol] 0.45 10*3/uL [facility] Neutrophils (Bld) [#/Vol] 12.30 10*3/uL High [facility] Nucleated RBC (Bld) [#/Vol] [facility] Nucleated RBC/100 WBC (Bld) [Ratio] 0.0 % /100 WBC [facility] Platelet mean volume (Bld) [Entitic vol] 8.6 fL Low 9.0 - 12.7 fL [facility] Platelets (Bld) [#/Vol] 317 10*3/uL [facility] WBC (Bld) [#/Vol] 14.12 10*3/uL High [facility] Basophils (Bld) [#/Vol] 0.04 10*3/uL Normal <0.11 [facility] Comment on above: Order Comment: Speci men Type: BLOOD SPECIMENOrdering Facility: [facility] Address: [address] [place] [address] Performed By: #### 5 7021-8 ####[facility] [id number] [place] [address] Basophils/100 WBC (Bld) 0.3 % Normal [facility] Comment on above: Order Comment: Speci men Type: BLOOD SPECIMENOrdering Facility: [facility] Address: [address] [place] [address] Performed By: #### 5 7021-8 ####[facility] [id number] [place] [address] Differential cell count method Nom (Bld) Auto Normal [facility] Comment on above: Order Comment: Speci men Type: BLOOD SPECIMENOrdering Facility: [facility] Address: [address] [place] [address] Performed By: #### 5 7021-8 ####[facility] [id number] [place] [address] Eosinophils (Bld) [#/Vol] 0.07 10*3/uL Normal <0.46 [facility] Comment on above: Order Comment: Speci men Type: BLOOD SPECIMENOrdering Facility: [facility] Address: [address] [place] [address] Performed By: #### 5 7021-8 ####[facility] [id number] [place] [address] Eosinophils/100 WBC (Bld) 0.5 % Normal [facility] Comment on above: Order Comment: Speci men Type: BLOOD SPECIMENOrdering Facility: [facility] Address: [address] [place] [address] Performed By: #### 5 7021-8 ####[facility] [id number] [place] [address] Erythrocyte distribution width (RBC) [Ratio] 13.6 % Normal 11.5-15.0 [facility] Comment on above: Order Comment: Speci men Type: BLOOD SPECIMENOrdering Facility: [facility] Address: [address] [place] [address] Performed By: #### 5 7021-8 ####[facility] [id number] [place] [address] Hematocrit (Bld) [Volume fraction] 43.8 % Normal 39.0-51.0 [facility] Comment on above: Order Comment: Speci men Type: BLOOD SPECIMENOrdering Facility: [facility] Address: [address] [place] [address] Performed By: #### 5 7021-8 ####[facility] [id number] [place] [address] Hemoglobin (Bld) [Mass/Vol] 14.8 g/dL Normal 13.0-17.0 [facility] Comment on above: Order Comment: Speci men Type: BLOOD SPECIMENOrdering Facility: [facility] Address: [address] [place] [address] Performed By: #### 5 7021-8 ####[facility] [id number] [place] [address] Immature granulocytes (Bld) [#/Vol] 0.16 10*3/uL High <0.10 [facility] Comment on above: Order Comment: Speci men Type: BLOOD SPECIMENOrdering Facility: [facility] Address: [address] [place], [place] [address] Performed By: #### 5 7021-8 ####[facility] [id number] [place] [address] Immature granulocytes/100 WBC (Bld) 1.1 % Normal [facility] Comment on above: Order Comment: Speci men Type: BLOOD SPECIMENOrdering Facility: [facility] Address: [address] [place] [address] Performed By: #### 5 7021-8 ####[facility] [id number] [place] [address] Lymphocytes (Bld) [#/Vol] 1.10 10*3/uL Normal 1.00-4.00 [facility] Comment on above: Order Comment: Speci men Type: BLOOD SPECIMENOrdering Facility: [facility] Address: [address] [place] [address] Performed By: #### 5 7021-8 ####[facility] [id number] [place] [address] Lymphocytes/100 WBC (Bld) 7.8 % Normal [facility] Comment on above: Order Comment: Speci men Type: BLOOD SPECIMENOrdering Facility: [facility] Address: [address] [place] [address] Performed By: #### 5 7021-8 ####[facility] [id number] [place] [address] MCH (RBC) [Entitic mass] 30.4 pg Normal 26.0-34.0 [facility] Comment on above: Order Comment: Speci men Type: BLOOD SPECIMENOrdering Facility: [facility] Address: [address] [place] [address] Performed By: #### 5 7021-8 ####[facility] [id number] [place] [address] MCHC (RBC) [Mass/Vol] 33.8 g/dL Normal 30.5-36.0 [facility] Comment on above: Order Comment: Speci men Type: BLOOD SPECIMENOrdering Facility: [facility] Address: [address] [place] [address] Performed By: #### 5 7021-8 ####[facility] [id number] [place] [address] MCV (RBC) [Entitic vol] 89.9 fL Normal 80.0-100.0 [facility] Comment on above: Order Comment: Speci men Type: BLOOD SPECIMENOrdering Facility: [facility] Address: [address] [place] [address] Performed By: #### 5 7021-8 ####[facility] [id number] [place] [address] Monocytes (Bld) [#/Vol] 0.45 10*3/uL Normal <0.87 [facility] Comment on above: Order Comment: Speci men Type: BLOOD SPECIMENOrdering Facility: [facility] Address: [address] [place] [address] Performed By: #### 5 7021-8 ####[facility] [id number] [place] [address] Monocytes/100 WBC (Bld) 3.2 % Normal [facility] Comment on above: Order Comment: Speci men Type: BLOOD SPECIMENOrdering Facility: [facility] Address: [address] [place] [address] Performed By: #### 5 7021-8 ####[facility] [id number] [place] [address] Neutrophils (Bld) [#/Vol] 12.30 10*3/uL High 1.45-7.50 [facility] Comment on above: Order Comment: Speci men Type: BLOOD SPECIMENOrdering Facility: [facility] Address: [address] [place] [address] Performed By: #### 5 7021-8 ####[facility] [id number] [place] [address] Neutrophils/100 WBC (Bld) 87.1 % Normal [facility] Comment on above: Order Comment: Speci men Type: BLOOD SPECIMENOrdering Facility: [facility] Address: [address] [place] [address] Performed By: #### 5 7021-8 ####[facility] [id number] [place] [address] Nucleated RBC (Bld) [#/Vol] 10*3/uL Normal <0.01 [facility] Comment on above: Order Comment: Speci men Type: BLOOD SPECIMENOrdering Facility: [facility] Address: [address] [place] [address] Performed By: #### 5 7021-8 ####[facility] [id number] [place] [address] Nucleated RBC/100 WBC (Bld) [Ratio] 0.0 /100 WBC Normal [facility] Comment on above: Order Comment: Speci men Type: BLOOD SPECIMENOrdering Facility: [facility] Address: [address] [place] [address] Performed By: #### 5 7021-8 ####[facility] [id number] [place] [address] Platelet mean volume (Bld) [Entitic vol] 8.6 fL Low 9.0-12.7 [facility] Comment on above: Order Comment: Speci men Type: BLOOD SPECIMENOrdering Facility: [facility] Address: [address] [place] [address] Performed By: #### 5 7021-8 ####[facility] [id number] [place] [address] Platelets (Bld) [#/Vol] 317 10*3/uL Normal 150-400 [facility] Comment on above: Order Comment: Speci men Type: BLOOD SPECIMENOrdering Facility: [facility] Address: [address] [place] [address] Performed By: #### 5 7021-8 ####[facility] [id number] [place] [address] RBC (Bld) [#/Vol] 4.87 10*6/uL Normal 4.20-6.00 [facility] Comment on above: Order Comment: Speci men Type: BLOOD SPECIMENOrdering Facility: [facility] Address: [address] [place] [address] Performed By: #### 5 7021-8 ####[facility] LABCLIA [id number] [place] [address] WBC (Bld) [#/Vol] 14.12 10*3/uL High 3.70-11.00 [facility] Comment on above: Order Comment: Speci men Type: BLOOD SPECIMENOrdering Facility: [facility] Address: [address] [place] [address] Performed By: #### 5 7021-8 ####[facility] LABCLIA [id number] [place] [address] [facility] CBC W AUTO DIFF BLDon [facility] BASOPHILS # BLD AUTO 0.04 [facility] DIFFERENTIAL METHOD BLD Auto [facility] EOSINOPHIL # BLD AUTO 0.07 [facility] LYMPHOCYTES # BLD AUTO 1.1 [facility] MONOCYTES # BLD AUTO 0.45 [facility] NEUTROPHILS # BLD AUTO 12.3 [facility] NRBC # BLD AUTO <0.01 [facility] NRBC/100 WBC BLD-RTO 0 /100 WBC [facility] PLATELET # BLD AUTO 317 [facility] PMV BLD AUTO 8.6 fL Low 9.0 - 12.7 fL [facility] WBC # BLD AUTO 14.12 [facility] IMM GRANULOCYTES # BLD AUTO 0.16 High [facility] IMM GRANULOCYTES/LEUK NFR BLD AUTO 1.1 % [facility] Specimen Type: BLOOD SPECIMEN Ordering Facility: [facility] Address: [address] [place] [address] Original Ordering Provider: Severo Mohan 10-11-2024 CNOV Office Visit (RADTSA ) JINNYMATEO ([id number]) 1960 M Date Time Provider Department 10/11/24 10:45 AM LAB/PORT RADT ANA ALCALA During your visit today, we recorded the following information about you: Dayanna Call LPN 10/11/2024 10:55 AM Signed Mateo Stearns presents in office today for: Lab Draw only . Ordering Provider: Gopal Dent M.D. Test (s) ordered: CBC Method for obtaining blood: Phlebotomy was performed, accessing left antecubital vein. Needle removed intact. Dressing secured. Patient denies discomfort, dizziness, light-headedness or weakness and left the department without assist. Dayanna Call LPN Referring Provider: Severo DENT [[id number]] Allergies As of Date: 10/11/2024 (No Known Allergies) Date Reviewed: 10/01/2024 Reviewed by: Mona Melvin RN - Fully Assessed Visit Diagnosis:Malignant neoplasm of prostate (HCC) [C61] Order(s):COMPLETE BLOOD COUNT AND DIFFERENTIAL [SQCBCDIF] Order #: [id number]. #:[id number] Prescriptions as of 10/11/2024 - predniSONE (DELTASONE) 10 mg tablet Refills(s) [...] 1,200 mg by mouth. - pantoprazole DR PagePROTONIX) 40 mg tablet Take 40 mg by mouth. - roflumilast (DALIRESP) 500 mcg tab Take 500 mcg by mouth once daily. - tiotropium (SPIRIVA WITH HANDIHALER) 18 mcg inhalation capsule Inhale 18 mcg as instructed once daily. - ALBUTEROL SULFATE (PROVENTIL HFA INHALATION) Inhale as instructed. - IBUPROFEN (ADVIL ORAL) Take by mouth. - fluticasone-salmetero l (ADVAIR DISKUS) 250-50 mcg/dose DsDv Inhale 1 Puff as instructed twice daily. - doxycycline 100 mg tablet Take 1 tablet by mouth twice daily. - predniSONE 20 mg tablet Take 2 pills daily x 3 days Problem List As Of Date 10/11/2024 Noted Resolved Imbalance [R26.89] 05/16/2013 COPD (chronic obstructive pulmonary disease) [J*05/16/2013 Tobacco abuse [Z72.0] 05/16/2013 Alcoholism [F10.20] 05/16/2013 Marijuana smoker [F12.90] 05/16/2013 Prostate cancer (HCC) [C61] 06/24/2024 Visit Notes: >> Dayanna Call LPN Janina Oct 11, 2024 10:55 AM Status: Signed Mateo Stearns presents in office today for: Lab Draw only . Ordering Provider: Gopal Dent M.D. Test (s) ordered: CBC Method for obtaining blood: Phlebotomy was performed, accessing left antecubital vein. Needle removed intact. Dressing secured. Patient denies discomfort, dizziness, light-headedness or weakness and left the department without assist. Dayanna Call LPN Encounter Status:Closed by DAYANNA CALL on 10/11/24 Normal [facility] - Hematology and Cell countson 10-11-2024 Basophils/100 WBC (Bld) 0.3 % [facility] Eosinophils/100 WBC (Bld) 0.5 % [facility] Erythrocyte distribution width (RBC) [Ratio] 13.6 % 11.5 - 15.0 % [facility] Hematocrit (Bld) [Volume fraction] 43.8 % 39.0 - 51.0 % [facility] Hemoglobin (Bld) [Mass/Vol] 14.8 g/dL 13.0 - 17.0 g/dL [facility] Lymphocytes/100 WBC (Bld) 7.8 % [facility] MCH (RBC) [Entitic mass] 30.4 pg 26.0 - 34.0 pg [facility] MCHC (RBC) [Mass/Vol] 33.8 g/dL 30.5 - 36.0 g/dL [facility] MCV (RBC) [Entitic vol] 89.9 fL 80.0 - 100.0 fL [facility] Monocytes/100 WBC (Bld) 3.2 % [facility] Neutrophils/100 WBC (Bld) 87.1 % [facility] RBC (Bld) [#/Vol] 4.87 10*6/uL 4.20 - 6.0 0 m/uL [facility] No Panel Informationon 10-11 Interpretation and review of laboratory results Abnormal [facility] CNOVon 10-08-2024 CNOV Office Visit (RADTSA ) JINNYMATEO Payan ([id number]) 1960 M Date Time Provider Department 10/08/24 10:30 AM Severo DENT During your visit today, we recorded the following information about you: Temperature Pulse Respiration Blood pressure 96.7 degrees 103/minute 18/minute 165/76 Weight 68.6 kg Severo Dent MD 10/08/2024 2:18 PM Signed Radiation Oncology - On Treatment Review (OTR) Note PATIENT NAME: Mateo Stearns PATIENT DIAGNOSIS: Prostate adenocarcinoma, initial PSA 4.46, biopsy [place] score 3 + 3 = 6 (grade group 1), clinical stage T1c, N0, M0, stage I [cT1a-c/T2a, N0, M0, PSA <10, GG 1] (AJCC 8th ed.), s/p TRUS Random biopsy. COURSE: definitive AREA TREATED: Pelvis/prostate CURRENT DOSE: 2500 cGy in 10 fx PLANNED DOSE: 7000 cGy in 28 fx SUBJECTIVE: Has some mild sinus symptoms, improving. Mild dysuria. No other issues. Denies fever. EXAM: 10/08/24 1034 BP: 165/76 Pulse: 103 Resp: 18 Temp: (!) 35.9 ?C (96.7 ?F) SpO2: 90% Weight: 68.6 kg (151 lb 3.8 oz) KPS: 100 General Appearance: Alert and oriented. No acute distress. Radiation dermatitis: No IMAGING/LAB RESULTS: Hemoglobin (g/dL) Date Value 10/04/2024 15.0 Hematocrit (%) Date Value 10/04/2024 43.9 WBC (k/uL) Date Value 10/04/2024 11.30 Platelet Count (k/uL) Date Value 10/04/2024 330 Treatment chart checked: Yes Patient treatment site reviewed and verified:Yes Port films reviewed and current:Yes Medications started: None ASSESSMENT/PLAN: Patient doing well. Mild URI improving. Chart and imaging reviewed. Continue radiation as outlined. Slight elevation WBC recheck this week. Severo Dent MD Allergies As of Date: 10/08/2024 (No Known Allergies) Date Reviewed: 10/01/2024 Reviewed by: Mona Melvin RN - Fully Assessed Primary Visit Diagnosis:Malignant neoplasm of prostate (HCC) [C61] Order(s):COMPLETE BLOOD COUNT AND DIFFERENTIAL [SQCBCDIF] Order #: [id number] FUTURE Prescriptions as of 10/08/2024 - predniSONE (DELTASONE) 10 mg tablet Refills(s) [...] IBUPROFEN (ADVIL ORAL) Take by mouth. - fluticasone-salmetero l (ADVAIR DISKUS) 250-50 mcg/dose DsDv Inhale 1 Puff as instructed twice daily. - doxycycline 100 mg tablet Take 1 tablet by mouth twice daily. - predniSONE 20 mg tablet Take 2 pills daily x 3 days Problem List As Of Date 10/08/2024 Noted Resolved Imbalance [R26.89] 05/16/2013 COPD (chronic obstructive pulmonary disease) [J*05/16/2013 Tobacco abuse [Z72.0] 05/16/2013 Alcoholism [F10.20] 05/16/2013 Marijuana smoker [F12.90] 05/16/2013 Prostate cancer (HCC) [C61] 06/24/2024 Encounter Status:Closed by Severo DENT on 10/08/24 Normal [facility] CBC W Auto Differential pane l (Bld)on 10-04-2024 Basophils (Bld) [#/Vol] 0.03 10*3/uL [facility] Differential cell count method Nom (Bld) Auto [facility] Eosinophils (Bld) [#/Vol] [facility] Eosinophils/100 WBC (Bld) 0.0 % [facility] Hemoglobin (Bld) [Mass/Vol] 15.0 g/dL 13.0 - 17.0 g/dL [facility] Immature granulocytes (Bld) [#/Vol] 0.10 10*3/uL High [facility] Immature granulocytes/100 WBC (Bld) 0.9 % [facility] Lymphocytes (Bld) [#/Vol] 1.30 10*3/uL [facility] Monocytes (Bld) [#/Vol] 0.40 10*3/uL [facility] Neutrophils (Bld) [#/Vol] 9.47 10*3/uL High [facility] Nucleated RBC (Bld) [#/Vol] NINF [facility] Nucleated RBC/100 WBC (Bld) [Ratio] 0.0 % /100 WBC [facility] Platelet mean volume (Bld) [Entitic vol] 8.6 fL Low 9.0 - 12.7 fL [facility] Platelets (Bld) [#/Vol] 330 10*3/uL [facility] WBC (Bld) [#/Vol] 11.30 10*3/uL High [facility] Basophils (Bld) [#/Vol] 0.03 10*3/uL Normal <0.11 [facility] Comment on above: Order Comment: Speci men Type: BLOOD SPECIMENOrdering Facility: [facility] Address: [address] [place] [address] Performed By: #### 5 7021-8 ####[facility] [id number] [place] [address] Basophils/100 WBC (Bld) 0.3 % Normal [facility] Comment on above: Order Comment: Speci men Type: BLOOD SPECIMENOrdering Facility: [facility] Address: [address] [place] [address] Performed By: #### 5 7021-8 ####[facility] [id number] [place] [address] Differential cell count method Nom (Bld) Auto Normal [facility] Comment on above: Order Comment: Speci men Type: BLOOD SPECIMENOrdering Facility: [facility] Address: [address] [place] [address] Performed By: #### 5 7021-8 ####[facility] [id number] [place] [address] Eosinophils (Bld) [#/Vol] 10*3/uL Normal <0.46 [facility] Comment on above: Order Comment: Speci men Type: BLOOD SPECIMENOrdering Facility: [facility] Address: [address] [place] [address] Performed By: #### 5 7021-8 ####[facility] [id number] [place] [address] Eosinophils/100 WBC (Bld) 0.0 % Normal [facility] Comment on above: Order Comment: Speci men Type: BLOOD SPECIMENOrdering Facility: [facility] Address: [address] [place] [address] Performed By: #### 5 7021-8 ####[facility] [id number] [place] [address] Erythrocyte distribution width (RBC) [Ratio] 13.5 % Normal 11.5-15.0 [facility] Comment on above: Order Comment: Speci men Type: BLOOD SPECIMENOrdering Facility: [facility] Address: [address] [place] [address] Performed By: #### 5 7021-8 ####[facility] [id number] [place] [address] Hematocrit (Bld) [Volume fraction] 43.9 % Normal 39.0-51.0 [facility] Comment on above: Order Comment: Speci men Type: BLOOD SPECIMENOrdering Facility: [facility] Address: [address] [place] [address] Performed By: #### 5 7021-8 ####[facility] [id number] [place] [address] Hemoglobin (Bld) [Mass/Vol] 15.0 g/dL Normal 13.0-17.0 [facility] Comment on above: Order Comment: Speci men Type: BLOOD SPECIMENOrdering Facility: [facility] [facility] Address: [address] [place] [address] Performed By: #### 5 7021-8 ####[facility] [id number] [place] [address] Immature granulocytes (Bld) [#/Vol] 0.10 10*3/uL High <0.10 [facility] Comment on above: Order Comment: Speci men Type: BLOOD SPECIMENOrdering Facility: [facility] Address: [address] [place] [address] Performed By: #### 5 7021-8 ####[facility] [id number] [place] [address] Immature granulocytes/100 WBC (Bld) 0.9 % Normal [facility] Comment on above: Order Comment: Speci men Type: BLOOD SPECIMENOrdering Facility: [facility] Address: [address] [place] [address] Performed By: #### 5 7021-8 ####[facility] [id number] [place] [address] Lymphocytes (Bld) [#/Vol] 1.30 10*3/uL Normal 1.00-4.00 [facility] Comment on above: Order Comment: Speci men Type: BLOOD SPECIMENOrdering Facility: [facility] Address: [address] [place] [address] Performed By: #### 5 7021-8 ####[facility] [id number] [place] [address] Lymphocytes/100 WBC (Bld) 11.5 % Normal [facility] Comment on above: Order Comment: Speci men Type: BLOOD SPECIMENOrdering Facility: [facility] Address: [address] [place] [address] Performed By: #### 5 7021-8 ####[facility] [id number] [place] [address] MCH (RBC) [Entitic mass] 30.5 pg Normal 26.0-34.0 [facility] Comment on above: Order Comment: Speci men Type: BLOOD SPECIMENOrdering Facility: [facility] Address: [address] [place] [address] Performed By: #### 5 7021-8 ####[facility] [id number] [place] [address] MCHC (RBC) [Mass/Vol] 34.2 g/dL Normal 30.5-36.0 [facility] Comment on above: Order Comment: Speci men Type: BLOOD SPECIMENOrdering Facility: [facility] Address: [address] [place] [address] Performed By: #### 5 7021-8 ####[facility] [id number] [place] [address] MCV (RBC) [Entitic vol] 89.2 fL Normal 80.0-100.0 [facility] Comment on above: Order Comment: Speci men Type: BLOOD SPECIMENOrdering Facility: [facility] Address: [address] [place] [address] Performed By: #### 5 7021-8 ####[facility] [id number] [place] [address] Monocytes (Bld) [#/Vol] 0.40 10*3/uL Normal <0.87 [facility] Comment on above: Order Comment: Speci men Type: BLOOD SPECIMENOrdering Facility: [facility] Address: [address] [place] [address] Performed By: #### 5 7021-8 ####[facility] [id number] [place] [address] Monocytes/100 WBC (Bld) 3.5 % Normal [facility] Comment on above: Order Comment: Speci men Type: BLOOD SPECIMENOrdering Facility: [facility] Address: [address] [place] [address] Performed By: #### 5 7021-8 ####[facility] [id number] [place] [address] Neutrophils (Bld) [#/Vol] 9.47 10*3/uL High 1.45-7.50 [facility] Comment on above: Order Comment: Speci men Type: BLOOD SPECIMENOrdering Facility: [facility] Address: [address] [place] [address] Performed By: #### 5 7021-8 ####[facility] [id number] [place] [address] Neutrophils/100 WBC (Bld) 83.8 % Normal [facility] Comment on above: Order Comment: Speci men Type: BLOOD SPECIMENOrdering Facility: [facility] Address: [address] [place] [address] Performed By: #### 5 7021-8 ####[facility] [id number] [place] [address] Nucleated RBC (Bld) [#/Vol] 10*3/uL Normal <0.01 [facility] Comment on above: Order Comment: Speci men Type: BLOOD SPECIMENOrdering Facility: [facility] Address: [address] [place] [address] Performed By: #### 5 7021-8 ####[facility] [id number] [place] [address] Nucleated RBC/100 WBC (Bld) [Ratio] 0.0 /100 WBC Normal [facility] Comment on above: Order Comment: Speci men Type: BLOOD SPECIMENOrdering Facility: [facility] Address: [address] [place] [address] Performed By: #### 5 7021-8 ####[facility] [id number] [place] [address] Platelet mean volume (Bld) [Entitic vol] 8.6 fL Low 9.0-12.7 [facility] Comment on above: Order Comment: Speci men Type: BLOOD SPECIMENOrdering Facility: [facility] Address: [address] [place] [address] Performed By: #### 5 7021-8 ####[facility] [id number] [place] [address] Platelets (Bld) [#/Vol] 330 10*3/uL Normal 150-400 [facility] Comment on above: Order Comment: Speci men Type: BLOOD SPECIMENOrdering Facility: [facility] Address: [address] [place] [address] Performed By: #### 5 7021-8 ####[facility] LABIA [id number] [place] [address] RBC (Bld) [#/Vol] 4.92 10*6/uL Normal 4.20-6.00 [facility] Comment on above: Order Comment: Speci men Type: BLOOD SPECIMENOrdering Facility: [facility] Address: [address] [place] [address] Performed By: #### 5 7021-8 ####[facility] LABIA [id number] [place] [address] WBC (Bld) [#/Vol] 11.30 10*3/uL High 3.70-11.00 [facility] Comment on above: Order Comment: Speci men Type: BLOOD SPECIMENOrdering Facility: [facility] Address: [address] [place] [address] Performed By: #### 5 7021-8 ####[facility] LABIA [id number] [place] [address] [facility] CBC W AUTO DIFF BLDon [facility] BASOPHILS # BLD AUTO 0.03 [facility] DIFFERENTIAL METHOD BLD Auto [facility] EOSINOPHIL # BLD AUTO <0.03 [facility] LYMPHOCYTES # BLD AUTO 1.3 [facility] MONOCYTES # BLD AUTO 0.4 [facility] NEUTROPHILS # BLD AUTO 9.47 High [facility] NRBC # BLD AUTO <0.01 [facility] NRBC/100 WBC BLD-RTO 0 /100 WBC [facility] PLATELET # BLD AUTO 330 [facility] PMV BLD AUTO 8.6 fL Low 9.0 - 12.7 fL [facility] WBC # BLD AUTO 11.3 High [facility] Eosinophils/100 WBC (Bld) 0 % [facility] Hemoglobin (Bld) [Mass/Vol] 15 g/dL 13.0 - 17.0 g/dL [facility] IMM GRANULOCYTES # BLD AUTO 0.1 High NINF [facility] IMM GRANULOCYTES/LEUK NFR BLD AUTO 0.9 % [facility] Specimen Type: BLOOD SPECIMEN Ordering Facility: [facility] Address: [facility] [place] [address] Original Ordering Provider: Severo DENT CLINISYELAINA Mohan 10-04-2024 CNOV Office Visit (RADTSA ) MATEO STEARNS ([id number]) 1960 M Date Time Provider Department 10/04/24 2:30 PM LAB/PORT RADT ANA ALCALA During your visit today, we recorded the following information about you: Dayanna Call LPN 10/04/2024 3:20 PM Signed Mateo Stearns presents in office today for: Lab Draw only . Ordering Provider: Gopal Dent M.D. Test (s) ordered: CBC Method for obtaining blood: Phlebotomy was performed, accessing left antecubital vein. Needle removed intact. Dressing secured. Patient denies discomfort, dizziness, light-headedness or weakness and left the department without assist. Dayanna Call LPN Allergies As of Date: 10/04/2024 (No Known Allergies) Date Reviewed: 10/01/2024 Reviewed by: Mona Melvin, RN - Fully Assessed Visit Diagnosis:Malignant neoplasm of prostate (HCC) [C61] Order(s):COMPLETE BLOOD COUNT AND DIFFERENTIAL [SQCBCDIF] Order #: [id number]. #:[id number] Prescriptions as of 10/04/2024 - predniSONE (DELTASONE) 10 mg tablet Refills(s) [...] IBUPROFEN (ADVIL ORAL) Take by mouth. - fluticasone-salmetero l (ADVAIR DISKUS) 250-50 mcg/dose DsDv Inhale 1 Puff as instructed twice daily. - doxycycline 100 mg tablet Take 1 tablet by mouth twice daily. - predniSONE 20 mg tablet Take 2 pills daily x 3 days Problem List As Of Date 10/04/2024 Noted Resolved Imbalance [R26.89] 05/16/2013 COPD (chronic obstructive pulmonary disease) [J*05/16/2013 Tobacco abuse [Z72.0] 05/16/2013 Alcoholism [F10.20] 05/16/2013 Marijuana smoker [F12.90] 05/16/2013 Prostate cancer (HCC) [C61] 06/24/2024 Visit Notes: >> Dayanna Call LPN Janina Oct 04, 2024 3:20 PM Status: Signed Mateo Stearns presents in office today for: Lab Draw only . Ordering Provider: Gopal Dent M.D. Test (s) ordered: CBC Method for obtaining blood: Phlebotomy was performed, accessing left antecubital vein. Needle removed intact. Dressing secured. Patient denies discomfort, dizziness, light-headedness or weakness and left the department without assist. Dayanna Call LPN Encounter Status:Closed by DAYANNA CALL on 10/04/24 Normal [facility] - Hematology and Cell countson 10-04-2024 Basophils/100 WBC (Bld) 0.3 % [facility] Erythrocyte distribution width (RBC) [Ratio] 13.5 % 11.5 - 15.0 % [facility] Hematocrit (Bld) [Volume fraction] 43.9 % 39.0 - 51.0 % [facility] Lymphocytes/100 WBC (Bld) 11.5 % [facility] MCH (RBC) [Entitic mass] 30.5 pg 26.0 - 34.0 pg [facility] MCHC (RBC) [Mass/Vol] 34.2 g/dL 30.5 - 36.0 g/dL [facility] MCV (RBC) [Entitic vol] 89.2 fL 80.0 - 100.0 fL [facility] Monocytes/100 WBC (Bld) 3.5 % [facility] Neutrophils/100 WBC (Bld) 83.8 % [facility] RBC (Bld) [#/Vol] 4.92 10*6/uL 4.20 - 6.0 0 m/uL [facility] No Panel Informationon 10-04 Interpretation and review of laboratory results Abnormal [facility] CNOVon 10-01-2024 CNOV Office Visit (RADTSA ) MATEO STEARNS ([id number]) 1960 M Date Time Provider Department 10/01/24 10:30 AM Severo DENT During your visit today, we recorded the following information about you: Temperature Pulse Respiration Blood pressure 97.9 degrees 99/minute 18/minute 129/83 Weight 67.6 kg Severo Dent MD 10/01/2024 10:51 AM Signed Radiation Oncology - On Treatment Review (OTR) Note PATIENT NAME: Mateo Stearns PATIENT DIAGNOSIS: Prostate adenocarcinoma, initial PSA 4.46, biopsy Brenden score 3 + 3 = 6 (grade group 1), clinical stage T1c, N0, M0, stage I [cT1a-c/T2a, N0, M0, PSA <10, GG 1] (AJCC 8th ed.), s/p TRUS Random biopsy. COURSE: definitive AREA TREATED: Pelvis/prostate CURRENT DOSE: 1250 cGy in 5 fx PLANNED DOSE: 7000 cGy in 28 fx SUBJECTIVE: Has some mild sinus symptoms no other issues. EXAM: 10/01/24 1042 BP: 129/83 Pulse: 99 Resp: 18 Temp: 36.6 ?C (97.9 ?F) SpO2: (!) 87% Weight: 67.6 kg (149 lb 0.5 oz) KPS: 100 General Appearance: Alert and oriented. No acute distress. Radiation dermatitis: No IMAGING/LAB RESULTS: None Treatment chart checked: Yes Patient treatment site reviewed and verified:Yes Port films reviewed and current:Yes Medications started: None ASSESSMENT/PLAN: Patient doing well. Chart and imaging reviewed. Continue radiation as outlined. Severo Dent MD Allergies As of Date: 10/01/2024 (No Known Allergies) Date Reviewed: 10/01/2024 Reviewed by: Mona Melvin RN - Fully Assessed Primary Visit Diagnosis:Malignant neoplasm of prostate (HCC) [C61] Prescriptions as of 10/01/2024 - predniSONE (DELTASONE) 10 mg tablet Refills(s) [...] IBUPROFEN (ADVIL ORAL) Take by mouth. - fluticasone-salmetero l (ADVAIR DISKUS) 250-50 mcg/dose DsDv Inhale 1 Puff as instructed twice daily. - doxycycline 100 mg tablet Take 1 tablet by mouth twice daily. - predniSONE 20 mg tablet Take 2 pills daily x 3 days Problem List As Of Date 10/01/2024 Noted Resolved Imbalance [R26.89] 05/16/2013 COPD (chronic obstructive pulmonary disease) [J*05/16/2013 Tobacco abuse [Z72.0] 05/16/2013 Alcoholism [F10.20] 05/16/2013 Marijuana smoker [F12.90] 05/16/2013 Prostate cancer (HCC) [C61] 06/24/2024 Encounter Status:Closed by Severo DENT on 10/01/24 [facility] CNOVon 09-25-2024 CNOV Office Visit (RADTSA ) MATEO STEARNS ([id number]) 1960 M Date Time Provider Department 09/25/24 2:00 PM Severo DENT RADTSA During your visit today, we recorded the following information about you: Weight 67.1 kg Severo Dent MD 09/26/2024 4:56 PM Signed Radiation Oncology - On Treatment Review (OTR) Note PATIENT NAME: Mateo Stearns PATIENT DIAGNOSIS: Prostate adenocarcinoma, initial PSA 4.46, biopsy Brenden score 3 + 3 = 6 (grade group 1), clinical stage T1c, N0, M0, stage I [cT1a-c/T2a, N0, M0, PSA <10, GG 1] (AJCC 8th ed.), s/p TRUS Random biopsy. COURSE: definitive AREA TREATED: Pelvis/prostate CURRENT DOSE: 250 cGy in 1 fx PLANNED DOSE: 7000 cGy in 28 fx SUBJECTIVE: Here to start radiation, doing well. EXAM: KPS: 100 General Appearance: Alert and oriented. No acute distress. Radiation dermatitis: No IMAGING/LAB RESULTS: None Treatment chart checked: Yes Patient treatment site reviewed and verified:Yes Port films reviewed and current:Yes Medications started: None ASSESSMENT/PLAN: Patient starting radiation today. Plan of care and expectations again reviewed. Plan, MU calculations and qa report reviewed. Initial imaging including cone beam ct and verification reviewed and approved. First treatment given. Continue radiation as prescribed. Severo Dent MD Referring Provider: Severo DENT [[id number]] Allergies As of Date: 09/25/2024 (No Known Allergies) Date Reviewed: 09/25/2024 Reviewed by: Mona Melvin RN - Fully Assessed Reason for Visit: Radiotherapy On-treatment Visit [1722] Primary Visit Diagnosis:Malignant neoplasm of prostate (HCC) [C61] Prescriptions as of 09/26/2024 - predniSONE (DELTASONE) 10 mg tablet Refills(s) [...] IBUPROFEN (ADVIL ORAL) Take by mouth. - fluticasone-salmetero l (ADVAIR DISKUS) 250-50 mcg/dose DsDv Inhale 1 Puff as instructed twice daily. - doxycycline 100 mg tablet Take 1 tablet by mouth twice daily. - predniSONE 20 mg tablet Take 2 pills daily x 3 days Problem List As Of Date 09/25/2024 Noted Resolved Imbalance [R26.89] 05/16/2013 COPD (chronic obstructive pulmonary disease) [J*05/16/2013 Tobacco abuse [Z72.0] 05/16/2013 Alcoholism [F10.20] 05/16/2013 Marijuana smoker [F12.90] 05/16/2013 Prostate cancer (HCC) [C61] 06/24/2024 Encounter Status:Closed by Severo DENT on 09/26/24 [facility] 09-24-2024 [facility] Telephone (RADTSA) MATEO STEARNS ([id number]) 1960 M Date Time Provider Department 09/24/24 Severo DENT RADSLIME During your visit today, we recorded the following information about you: Dayanna Call LPN 09/24/2024 10:56 AM Signed CBC order pending your approval. Dayanna Call RN Allergies As of Date: 09/24/2024 (No Known Allergies) Date Reviewed: 09/11/2024 Reviewed by: Dayanna Call LPN - Fully Assessed Reason for Visit: Orders [681] Cmt: CBC Primary Visit Diagnosis:Malignant neoplasm of prostate (HCC) [C61] Order(s):COMPLETE BLOOD COUNT AND DIFFERENTIAL [SQCBCDIF] Order #: [id number] FUTURE Prescriptions as of 09/24/2024 - predniSONE (DELTASONE) 10 mg tablet Refills(s) [...] IBUPROFEN (ADVIL ORAL) Take by mouth. - fluticasone-salmetero l (ADVAIR DISKUS) 250-50 mcg/dose DsDv Inhale 1 Puff as instructed twice daily. - doxycycline 100 mg tablet Take 1 tablet by mouth twice daily. - predniSONE 20 mg tablet Take 2 pills daily x 3 days Problem List As Of Date 09/24/2024 Noted Resolved Imbalance [R26.89] 05/16/2013 COPD (chronic obstructive pulmonary disease) [J*05/16/2013 Tobacco abuse [Z72.0] 05/16/2013 Alcoholism [F10.20] 05/16/2013 Marijuana smoker [F12.90] 05/16/2013 Prostate cancer (HCC) [C61] 06/24/2024 Encounter Status:Closed by DAYANNA CALL on 09/24/24 [facility] 09-17-2024 CNOV Office Visit (RADTSA ) JINNYMATEO Payan ([id number]) 1960 M Date Time Provider Department 09/17/24 11:45 AM Severo DENT During your visit today, we recorded the following information about you: Referring Provider: Severo DENT [[id number]] Allergies As of Date: 09/17/2024 (No Known Allergies) Date Reviewed: 09/11/2024 Reviewed by: Dayanna Call LPN - Fully Assessed Reason for Visit: Simulation Request Form [4065] Primary Visit Diagnosis:Malignant neoplasm of prostate (HCC) [C61] Order(s):RADIATION TREATMENT PER RADIATION ONCOLOGIST PLAN [2620047] Order #: [id number]: 1 PT ED CANCER [1400793] Order #: [id number]: 1 CT SIM PLANNING RADIATION ONCOLOGY [3755657] Order #: [id number] Prescriptions as of 09/17/2024 - predniSONE (DELTASONE) 10 mg tablet Refills(s) [...] IBUPROFEN (ADVIL ORAL) Take by mouth. - fluticasone-salmetero l (ADVAIR DISKUS) 250-50 mcg/dose DsDv Inhale 1 Puff as instructed twice daily. - doxycycline 100 mg tablet Take 1 tablet by mouth twice daily. - predniSONE 20 mg tablet Take 2 pills daily x 3 days Problem List As Of Date 09/17/2024 Noted Resolved Imbalance [R26.89] 05/16/2013 COPD (chronic obstructive pulmonary disease) [J*05/16/2013 Tobacco abuse [Z72.0] 05/16/2013 Alcoholism [F10.20] 05/16/2013 Marijuana smoker [F12.90] 05/16/2013 Prostate cancer (HCC) [C61] 06/24/2024 Encounter Status:Closed by Severo DENT on 09/17/24 [facility] 09-14-2024 [facility] Telephone (RADTSA) MATEO STEARNS ([id number]) 1960 Date Time Provider Department 09/14/24 Severo DENT RADmobintentA During your visit today, we recorded the following information about you: Mona Melvin RN 09/14/2024 12:28 PM Signed PT called in with multiple financial concerns regarding his treatment. He would like to speak to someone regarding if his treatment will be authorized and what out of pocket costs he may have. PSS- can you set him up with the correct dept for this? He also mentioned needing assistance with gas driving back and forth. I let him know I will send this to [employer] to reach out to him to see what assistance she may be able to provide with mileage reimbursement or gas cards. [employer]- please contact pt. CARIDAD Hirsch Autumn, HUC 09/14/2024 12:50 PM Signed I called and spoke with the Patient and I have him scheduled with a PFA appointment (Phone call) to discuss his Financial Questions on 09/18/24 at 9 am. DARRIUS Mckee Allergies As of Date: 09/14/2024 (No Known Allergies) Date Reviewed: 09/11/2024 Reviewed by: Dayanna Call LPN - Fully Assessed Reason for Visit: Financial Questions [Other] Prescriptions as of 09/14/2024 - predniSONE (DELTASONE) 10 mg tablet Refills(s) [...] IBUPROFEN (ADVIL ORAL) Take by mouth. - fluticasone-salmetero l (ADVAIR DISKUS) 250-50 mcg/dose DsDv Inhale 1 Puff as instructed twice daily. - doxycycline 100 mg tablet Take 1 tablet by mouth twice daily. - predniSONE 20 mg tablet Take 2 pills daily x 3 days Problem List As Of Date 09/14/2024 Noted Resolved Imbalance [R26.89] 05/16/2013 COPD (chronic obstructive pulmonary disease) [J*05/16/2013 Tobacco abuse [Z72.0] 05/16/2013 Alcoholism [F10.20] 05/16/2013 Marijuana smoker [F12.90] 05/16/2013 Prostate cancer (HCC) [C61] 06/24/2024 Encounter Status:Closed by MONA MELVIN on 09/14/24 [facility] CNOVon 09-11-2024 CNOV Office Visit (RADTSA ) MATEO STEARNS ([id number]) 1960 M Date Time Provider Department 09/11/24 1:45 PM Severo DENT During your visit today, we recorded the following information about you: Temperature Pulse Respiration Blood pressure 97.8 degrees 80/minute 18/minute 146/82 Weight 68.1 kg Dayanna Call LPN 09/11/2024 1:44 PM Signed AUA= 3 Severo Dent MD 09/18/2024 12:03 PM Signed Radiation Oncology - Prostate Cancer Follow-up note PATIENT NAME: Mateo Stearns PATIENT DIAGNOSIS: Prostate adenocarcinoma, initial PSA 4.46, biopsy Brenden score 3 + 3 = 6 (grade group 1), clinical stage T1c, N0, M0, stage I [cT1a-c/T2a, N0, M0, PSA <10, GG 1] (AJCC 8th ed.), s/p TRUS Random biopsy. HPI: Patient in for follow-up to discuss treatment options again. Laboratory: Decipher genomic risk score: 0.43 (low risk) PSA. (no units) Date Value 09/07/2024 7.20 11/30/2023 4.22. 06/21/2024 6.8 Prior Radiation Therapy, Collagen Vascular Disease, or Inflammatory Bowel Disease: No Any implanted or external electric devices? No Currently on Anticoagulation: No History of Hip Replacement: No History of Prior TURP: No ALLERGIES No Known Allergies predniSONE (DELTASONE) 10 mg tablet Refills(s) 0 aspirin, enteric coated (ASPIRIN, ENTERIC COATED) 81 [...] instructed. IBUPROFEN (ADVIL ORAL) Take by mouth. fluticasone-salmetero l (ADVAIR DISKUS) 250-50 mcg/dose DsDv Inhale 1 Puff as instructed twice daily. doxycycline 100 mg tablet Take 1 tablet by mouth twice daily. predniSONE 20 mg tablet Take 2 pills daily x 3 days (Patient not taking: Reported on 09/11/2024) PAST MEDICAL HISTORY Diagnosis Date Atrial fibrillation (HCC) COPD (chronic obstructive pulmonary disease) (HCC) Emphysema of lung (HCC) GERD (gastroesophageal reflux disease) PAST SURGICAL HISTORY Procedure Laterality Date ELBOW Left 1967 FOOT RIGHT OP SURGERY REVISE MEDIAN N/CARPAL TUNNEL SURG Left TOTAL HIP REPLACEMENT Bilateral FAMILY HISTORY Problem Relation Age of Onset COPD Father Social History Tobacco Use Smoking status: Former Current packs/day: 0.00 Average packs/day: 2.5 packs/day for 37.0 years (92.5 ttl pk-yrs) Types: Cigarettes Start date: 1979 Quit date: 2017 Years since quittin.8 Smokeless tobacco: Never Vaping Use Vaping status: Never Used Substance Use Topics Alcohol use: Not Currently [...] noted in HPI PHYSICAL EXAM: VS: BP 146/82 Pulse 80 Temp 36.6 ?C (97.8 ?F) Resp 18 Wt 68.1 kg (150 lb 2.1 oz) SpO2 94% BMI 23.51 kg/m? KARNOFSKY PERFORMANCE STATUS: 100 General Appearance: Alert and oriented. No acute distress. Lymphatics: No palpable lymphadenopathy. GENITOURINARY: Deferred exam RECTAL: Deferred exam RADIOLOGY/LABORATORY DATA: see HPI ASSESSMENT/PLAN: Prostate adenocarcinoma, initial PSA 4.46, biopsy [place] score 3 + 3 = 6 (grade group 1), clinical stage T1c, N0, M0, stage I [cT1a-c/T2a, N0, M0, PSA <10, GG 1] (AJCC 8th ed.), s/p TRUS Random biopsy. Prostate cancer (C61), 2019 NCCN Risk Group: Low Risk Group Clinical State: Localized Cancer - New Diagnosis Patient states he does not want to pursue surgery or invasive procedures. Does not want to consider prostate brachytherapy. Does want to consider external beam treatment. Discussed both acute and potential long-term effects of all options. Again discussed watchful waiting. Will plan to proceed with definitive course of treatment, 70 Gy and 28 fractions using IMRT a (more content not included)... Normal [facility] PSA, DIAGNOSTICon 09-07 Interpretation and review of laboratory results Abnormal [facility] PROSTATE SPECIFIC ANTIGEN DX 7.20 ng/mL High NINF - 4.00 ng/mL [facility] CLINISYNC No Panel Informationon 09-07 [facility] CNOVon 07-12-2024 CNOV Office Visit (RADTSA ) MATEO STEARNS ([id number]) 1960 M Date Time Provider Department 07/12/24 1:15 PM Severo DENT During your visit today, we recorded the following information about you: Temperature Pulse Respiration Blood pressure 98.1 degrees 95/minute 18/minute 157/83 Weight 67.8 kg Severo Dent MD 07/12/2024 1:34 PM Signed Radiation Oncology - Prostate Cancer Follow-up note PATIENT NAME: Mateo Stearns PATIENT DIAGNOSIS: 63 year old male with prostate adenocarcinoma, initial PSA 4.46, biopsy [place] score 3 + 3 = 6 (grade [...] instructed. IBUPROFEN (ADVIL ORAL) Take by mouth. fluticasone-salmetero l (ADVAIR DISKUS) 250-50 mcg/dose DsDv Inhale 1 [...] ASSESSMENT/PLAN: Prostate adenocarcinoma, initial PSA 4.46, biopsy [place] score 3 + 3 = 6 (grade [...] be checked (more content not included)... Normal [facility] CNOVon 06-21-2024 CNOV Office Visit (RADTSA ) JINNYMATEO MARSHALL ([id number]) 1960 M Date Time Provider Department 06/21/24 1:15 PM Severo DENT During your visit today, we recorded the following information about you: Temperature Pulse Respiration Blood pressure 97.5 degrees 86/minute 20/minute 124/75 Weight Height 67.8 kg 1.702 m Dayanna Call LPN 06/21/2024 1:50 PM Signed Pacemaker/Defibrillat or?N Previous Cancer(s)?N Previous Radiation?N Lupus/Scleroderma?N On body monitoring device?N AUA= 5 Severo Dent MD 06/21/2024 1:50 PM Signed Radiation Oncology - Prostate Cancer New Patient/Consult Note PATIENT NAME: Mateo Stearns PATIENT REQUESTING PROVIDER: Dr. Vora DIAGNOSIS: 63 year old male with prostate adenocarcinoma, initial PSA 4.46, biopsy [place] score 3 + 3 = 6 (grade [...] instructed. IBUPROFEN (ADVIL ORAL) Take by mouth. fluticasone-salmetero l (ADVAIR DISKUS) 250-50 mcg/dose DsDv Inhale 1 [...] muscle aches (more content not included)... Normal [facility] CNOVon 06-01-2024 CNOV Office Visit (ZAK ) MATEO STEARNS ([id number]) 1960 Date Time Provider Department 06/01/24 1:45 PM AMANDEEP CRISOSTOMO During your visit today, we recorded the following information about you: Pulse Blood pressure Weight Height 88/minute 138/81 68 kg 1.753 m Amandeep Crisostomo MD 06/24/2024 4:18 PM Signed Referring Provider: Chief Complaint: Recently diagnosed CaP HPI: 63 year old male from [place], [place] with a PMHx of COPD (40 [...] a biopsy with 8/18 cores positive for [place] 6 disease. Past surgical Hx: total hip [...] or weakness, headaches and dizziness or syncope. HEMATOLOGIC/LYMPHATIC /IMMUNOLOGIC:Negative for prolonged bleeding, bruising easily or swollen [...] instructed. IBUPROFEN (ADVIL ORAL) Take by mouth. fluticasone-salmetero l (ADVAIR DISKUS) 250-50 mcg/dose DsDv Inhale 1 [...] review Assessment 63 year old male from [place], [place] with a PMHx of COPD (40 pack-year smoker and poor oxygenation status), Afib (on ASA), and GERD diagnosed with CAP in 05/20 which showed 2 cores of Brenden 6 disease. Recently had more + cores on a repeat biopsy and is here (more content not included)... Normal [facility] URINALYSIS, REFLEX MICROSCOP ICon 06-01-2024 Bilirubin Ql (U) Negative Negative [facility] Clarity (Unsp spec) Clear Clear [facility] Color (U) Yellow Yellow [facility] Glucose Test strip (U) [Mass/Vol] Negative Negative [facility] Hemoglobin Ql (U) Negative Negative [facility] Interpretation and review of laboratory results Normal [facility] Ketones Ql (U) Negative Negative [facility] Leukocyte esterase Test strip Ql (U) Negative Negative [facility] Nitrite Ql (U) Negative Negative [facility] pH (U) 5.5 [pH] NINF - 8.5 [facility] Protein (U) [Mass/Vol] Negative Negative [facility] Specific gravity (U) [Rel density] 1.009 1.005 - 1.030 [facility] Urobilinogen Ql (U) 0.2 EU/dL 0.2-1.0 EU/dL [facility] This test was developed and its performance characteristics determined by [facility]'s Amandeep JHarley [facility] Pathology and Laboratory Medicine [place] (-[facility]). It has not been cleared or approved by the FDA. -[facility] is regulated under CLIA as qualified to perform high-complexity testing. This test is used for clinical purposes. It should not be regarded as investigational or for research. [facility] Bilirubin Ql (U) Negative Normal Negative [facility] Comment on above: Order Comment: Speci men Type: URINE SPECIMENOrdering Facility: [facility] Address: [address] [place] [address] Performed By: #### L [id number] ####[facility] LABCLIA [id number] [place] [address] [place] Clarity (Unsp spec) Clear Normal Clear [facility] Comment on above: Order Comment: Speci men Type: URINE SPECIMENOrdering Facility: [facility] Address: [address] [place] [address] Performed By: #### L [id number] ####[facility] LABCLIA [id number] [place] [address] [place] Color (U) Yellow Normal Yellow [facility] Comment on above: Order Comment: Speci men Type: URINE SPECIMENOrdering Facility: [facility] Address: [address] [place] [address] Performed By: #### L [id number] ####[facility] LABCLIA [id number] [place] [address] [place] Glucose Test strip (U) [Mass/Vol] Negative Normal Negative [facility] Comment on above: Order Comment: Speci men Type: URINE SPECIMENOrdering Facility: [facility] Address: [address] [place] [address] Performed By: #### L [id number] ####[facility] LABCLIA [id number] [place] [address] [place] Hemoglobin Ql (U) Negative Normal Negative [facility] Comment on above: Order Comment: Speci men Type: URINE SPECIMENOrdering Facility: [facility] Address: [address] [place] [address] Performed By: #### L [id number] ####[facility] LABCLIA [id number] [place] [address] [place] Ketones Ql (U) Negative Normal Negative [facility] Comment on above: Order Comment: Speci men Type: URINE SPECIMENOrdering Facility: [facility] Address: [address] [id number] Performed By: #### L [id number] ####[facility] LABCLIA [id number] [place] [address] [place] Leukocyte esterase Test strip Ql (U) Negative Normal Negative [facility] Comment on above: Order Comment: Speci men Type: URINE SPECIMENOrdering Facility: [facility] Address: [address] [place] [address] Performed By: #### L [id number] ####[facility] LABCLIA [id number] [place] [address] [place] Nitrite Ql (U) Negative Normal Negative [facility] Comment on above: Order Comment: Speci men Type: URINE SPECIMENOrdering Facility: [facility] Address: [address] [place] [address] Performed By: #### L [id number] ####[facility] LABCLIA [id number] [place] [address] [place] pH (U) 5.5 [pH] Normal <8.5 [facility] Comment on above: Order Comment: Speci men Type: URINE SPECIMENOrdering Facility: [facility] Address: [address] [place] [address] Performed By: #### L [id number] ####[facility] LABIA [id number] [place] [address] [place] Protein (U) [Mass/Vol] Negative Normal Negative [facility] Comment on above: Order Comment: Speci men Type: URINE SPECIMENOrdering Facility: [facility] Address: [address] [place] [address] Performed By: #### L [id number] ####[facility] LABIA [id number] [place] [address] [place] Specific gravity (U) [Rel density] 1.009 Normal 1.005-1.030 [facility] Comment on above: Order Comment: Speci men Type: URINE SPECIMENOrdering Facility: [facility] Address: [address] [place] [address] Performed By: #### L [id number] ####[facility] LABCLIA [id number] [place] [address] [place] Urobilinogen Ql (U) 0.2 EU/dL Normal 0.2-1.0 EU/dL [facility] Comment on above: Order Comment: Speci men Type: URINE SPECIMENOrdering Facility: [facility] Address: [address] [place] [address] Performed By: #### L [id number] ####[facility] LABCLIA [id number] [address] [address] [place] Ambulatory Visit Summaryon [...] 90 mcg/inh Aerosol-Adpt) aspirin benzonatate (Tessalon Perles) budesonide-formoterol (budesonide-formotero l 160 mcg-4.5 mcg/inh Inh Aer w/adapter) diltiazem [...] Follow Up with DIONY CHANDLER, Rufina Reina, URMaximiliano When: Where: [facility] [address] , [place] [address] [phone] Someone Will Contact You Regarding These Appointments [facility] External Ambulatory Referral, Other (needs [...] prescribing physician if questions or concerns Unchanged budesonide-formoterol (budesonide-formotero l 160 mcg-4.5 mcg/ inh Inh Aer w/ [...] often, espec (more content not included)... Normal [facility] Patient Educationon 05-21-20 Patient Education Oncology [...] under a microscope. This is called the [place] score and the total score can range from 6?10, indicating how likely it is that the cancer will spread (metastasize) to other parts of the body. The higher the score, the greater the likelihood that the cancer will spread. ? [place] 6 or lower: This indicates that the [...] external be (more content not included)... Normal [facility] Urology Office/Clinic Noteon 05-21-2024 Urology Office/Clinic [...] and history for this patient from Dr. Vora. I have reviewed and verified the staff [...] - Brenden score 6 (3+3) in 2 cores, each one is less than 10%. 2 HGPINs. S/p TRUS/bx 05/01/24 - [place] 6 (3+3) in 9/12 cores. 30% core [...] [facility] [address], [place] [address] [phone] Additional Instructions: referral to [facility] to discuss prostatectomy Patient Education Prostate Cancer Vesta Mcguire, personally scribed for Dr. Vora on 05/21/2024 12:43:00. . Documentation recorded by the scribe, Vesta Cortes, accurately reflects the services(s) I performed and decisions made by me. Authenticated by Dr. Vora on 05/21/2024 12:44:28. Problem List/Past Medical History [...] prostate. Medications aspirin, 81 mg, Oral, Daily budesonide-formoterol 160 mcg-4.5 mcg/inh Inh Aer w/adapter, 2 [...] Recorded zoste (more content not included)... Normal [facility] Comment on above: Result Comment: Elec tronically Signed By: Rufina VORA MD\.br\Date and Time Signed: 05/21/24 12:44 EDT\.br\Electronically Co-Signed By: Vesta Cortes\.br\Date and Time Co-Signed: 05/21/24 12:43 EDT Coding Summary.on 05-17-2024 Coding Summary. IAOGZbyz34LFt4qJs+PG h lYWQ+TC3BMSGoM36ciNXf wL3tP2CEFFwOSzrbVZMJB YcCGvXvojSpIP0hmIWqUJ Ju IC8+GD6pNJUrHraddJMbk 5O2iSV2Q84xtb5vEFsljT U2AHLdLcZxoobvb9okvZg 6IDcuNmluOyBt AHMynA34KEH5qP11Xs47i SFsnNHhj0dyhEq4PmXnXG XmVTP9dMtiNVcfa2DfLPX cP76fbARmn0Q4 VQDxcRnvjBKfHjLoqIX4g U8aOHqjkgvyj9dncbpgVh k3mg68iVPqd2M9kTW8I7X oonY8IYDmpJZl JxeirFTZtY6rxhgum5igr lvnKsHuBGJjPRy3FYe6RF RasCbkHgVoKL76MWA5WGS owcQtO2BaGFYi dHsjZdA3d5H4Qp3CU6TEC srjX1BWJTACCFqupDS+PC 78cb69D9DdRcvjSnh6NNX aSMR7pMO4pA7k URMzTOpxs0E2hGX1P9Hwv fAprc4vv1efODXhNNwuK5 1noAPob1O1GGNvvSF6PEY yoAepQaJeeZ57 Oyc+LNQotBiiw8QkVvvrd 5dup0espWh8ZgwoQGXcis BaxQhiLHO4k8QbOn1jVVB khDS9wTB3dD3z TpKyFpF5NEphK317ZdGvo LLbAmvhX89qR4EqdJT+PH ImYkp0AWFihFivZZ6xU3E hZGRpbmctbGVm kPlkSB7xOHQwjvlyVAJcd Z6yATLhY8t7RzKwPmL6WP fkZ7WlLVZjieooHi99tB1 zQgHhUsN8APbf S9AnrjY2VULaqHBqSXzkS ZO5P25ve7J7WSVpJXQpZJ S5rLW2bL9gcHiiyurkkVQ mdDsgdmVydGlj AZvnSBomO512KOFhaToiN kNvZGluZyBEYXRlOiAgMD YvMjAvMjAyNDwvdGQ+PHR tBXG0mRmhQDNy yVYgMLwjAi9vcDbauBofH K3ySFJxuzziDJJuiC5fFG QmzYQzoTteYN0xZDKvrql yr685XmXtJYV0 CAMffPWrI2BssF7aOdFxF IQySQYyS5ZpsSMvIDqxQ0 60ILdeDyS0MGYqlxDpG2Y sLWFsaWduOiB0 z4L7Gs3Wh0TadjtkV5Bll EUaIqQoLipeENg5W3JeMo wvdHI+WY34MQIqJF29KDe 8GTG5xBnaZFxz GFQwM4AavK6vRrUyKDHlI GRkOyc+PHRhYmxlIHdpZH RoPScxMDAlJyBzdHlsZT0 xPv3uBJNyGZWu oIxrwPImEjAtq3zfMWPeX CzxUI3bcLybQ9LdkRP0II Piq0g8Wq76L40dQ8UazGW +BTBcoFQ3bIK6 uB9yAzEdLwM7QQsnM059B bUkuMHnEfgok5peb9ycsK n9BgO9MIPvtxYsrErzKCJ 3s7VbPz32N69q IHdpZHRoPSIxNSUiIHZhb Eylhj4rdU3pFm0+PGNvbC Y9qRL7iS1oQkDrRkP0NMh vP353YcIedDEo Jywah0rou8wklWv9EhPjD UTpvlIzvYtmPRH8x9OrPc 48Q3WscEazq8MgClg1vz7 0mNPaa2Q4rYQ1 O6OwKOWgurgpcAXqdDhlW Y4zUKBdcgxbEDTrpD6vUY RlQ9c5NqJfDwK0RZzvZ1A fbfW3FLKebZFu YJKsgDWZyK1vvbwnx9qnb gtbVfRzKTLpHUl1AWb1KS OujIbdDeCnRJO1AxC3IEN 3lDRfaN8czPzv bdxszM9zRoa+CQK2zPAjt MUPCS9sQrgtoZB+PHRkIH O4sOldOEexABGniW6bDVV vH0j4BtXxCtN3 EHovC3MlqyG9XTLkkNNsM RTieDIQwO4sikofr3drve ebNgIkCEJyCYn6GAc8XQX saWduOiBsZWZ0 WuI3GCH9jGSqnX2gtBsjn fdynG9qWzj+QmlydGggRG L2TTb9W3CpMoy6TZIoyJi cQU5klHRqGYqm Zi4hzWljvTsvQA3zSJHxp dxej921NxUdi8ciEJMxwZ DgEPamFEK5U73jk9U9NXC kRZDyMYG3jLV5 kC6mkFvyyhxeyZYbsQqdb dUdiHprFGtxSAxlX717SC CoxPnbLnTgQZg8V6BcUjq 2AYSivIbxXZ1h eYRuESliVd6jmDpcoZutB Q1dGUWlthnfr503LrJmv6 cwJNXriZJvSKnsYEI1D02 zu6M5UZWmBRAz UWP9qNW8pH1nzJpgpvcat GVmdDsgdmVydGljYWwtYW xqB365KABsrWjbJiTmwQc 0H9PfQvd9RGCm kDhfDR4hbHKuERlzYz8go JoptTxnLR7gDDDjuybvh9 49JeZvf1hiLDCcoVXuRNh iQUK5N20uh4F1 WYGnDBKpRDT2gXF3fB6ks GlnbjogbGVmdDsgdmVydG ezTCjpPLdoX534IRTkgUo nPlBhdGllbnQg NJvzYVy6S9IhOrxpmSZ+P R14LWMcVJ08hHVinONlb8 tdiCn9LsCsISVzCBJ3eNk yRXuil5DmRRDf Y25khPMkl3Q5HGHxuQsyt GRqGqHazFA9dQ1sPUtjda ksv3zvfucdQtame1dumx1 3fX08Q59tZDha ZHRoPSIzMCUiIHZhbGlnb c3klE4rAy0+AHMcySZ1tU Z1aR9fAFLsZwC6HRroW64 9InRvcCIvPjxj h6zcj4sskGs1SlV8PSYau dVznUfzNTO0n7ZuCc47S6 9sIHdpZHRoPSIyMCUiIHZ olItuoq3bnZ8t Ii8+FCBnhHK8bMH3vB6wW pTbTmG8AMltZ928SxEknN JzCdyeQ36lO8EimOJ+PHR qUxd8LQGlvZay KY1wpWLiIEutUu5mNEV3P uHfLyViHLdgI6ClOBHpfg zmmazkvCG4FDQoQNFkpR4 2Hp7ghYehUKBf iSKUwD8jdjlyi8hiymqyU cOyUWCiMLt6JCr8PZHsvO plNdFfEHA9LnH5EYZ7uQT euA5ziFpfofii wK2uT5BvSKFpksewZd60a U4yKdSuSlC0AUsyNij+SE 9KBJphQ2sXUQAZK6PMHXS gVzwvdGQ+PHRk ZJZ2rPloCYfhRZVsbL1qL EZnT7g7GcCuZdI1FUapX6 UzUZKkvllhUq88gD8eIuM cKyU1IXquO6Ao deV3SIKcgUIoWFtcAGZ3A 52fd9R5WZIdEJVoAYR0dU I5wA6flWsguiesnZNsdBb gdmVydGljYWwt TZrsX158SWQtiBveMdV6T aT0DbB8QPr8A5TqYep0HK QuaHgwUS7kgTJnLJnvBk9 omKkpdHahWJ9q FRAhcgvaJNRzrD8mCEPno BRueJeyOO5gAQXxirhng6 34WnVkSAT2ZZYdiAJxY0W peY5vSiJmFGTt MMSaD3JvsNRaCWlqZ473V ZieWxN6ECNfycLyI8SxSH DrvLrjRlX7b8M5Th99CQR ZZWFyczwvdGQ+ PAToGWQ9oUdhQDepDAMih K9zVXBgR0r7WjReKeU1NR ngC8VqSSEzhkkaZw06kQ0 aEcZyAjW9RCbl U1JvzuA2XHNzwTCnTOhuX OA3F82sc9Z8WAVrXXMgOY S9mAL3lO0ieObjuezanHS mdDsgdmVydGlj YPwfKOarN773YWAatHrkH p2baJY6Q3ZnZzt1ZDYsuR ydWE6raNSaBVhcPp4mgBb brRdtGT3nBYJt powjUIPrqE6fPDOilTJhm WihKY9mWXXlqhgqj047Xv PrRMW5LNUmjJHlJ3EajQ3 yOiAjMDAwMDAw V4DqrBYbJQxbN079UUofP dX1TWJlwlBkE5UzHSArjS lfSdJ8t1R7Cq4QoKMbGXO gNS00KO08KN74 Q8LaVqhvvVLtnAD+PHRhY mxlIHdpZHRoPScxMDAlJy XnwQwzHW0eMh0tNFYhYUI vbGxhcHNlOiBj a9jgNFCwMVxrLA8ugOkyT 7VokYI2BGBwg5t2Of91Z4 2pJ5OvjMK+SDAgfTL5oAV 4mK3jHaKyCiT2 FZxrM415PnZlfBVxEefab 4vei5xuxAe8XdZeLDSovg EneJegWHX4l6XmSu37X98 sIHdpZHRoPSIy TAXtHWNlcQpyvi7goV2tQ i8+BTKynJR7lTG4aG6hIv KrCyP8FNwqN611GuAwgLR bQofrY90cT1Sk dXA+PQZmCya5XWEctZeaM S2rqEDuOOuiNo4fPJU3Yq UzVyJkTJjhM2QdYWKepuy ldfxwzEF0OAWl GLFukP67Ni8hpVmdRg3xV CTpYQK9RAWjyJCuN1OuuA 7gMgHcDUAtSLDeP3YbrXY mKCohB644VHxf PhI5VHXbnuZjH3IpYWDvh WmvGqZ2x3R3Bg8DhOpdaB FxZX8iTsFkEKz9R8WzUmu 2TNGcxXxfEX0x zKJyTKflDn8fxUlkdYdbG V3jLSMnjgdft304VpVpq6 hjTODkhOQfJQcqTQK8O55 da5R7BQUtYEFi SAZ9eSJ9cT0zyPfzsgisp GVmdDsgdmVydGljYWwtYW toS060KHNzgSszLbVQUhj 7P5ZrNuv4TFIf cAifOA9gtOOxULpuAu2sx EzewHllEW3dSMMtlgrvu3 30MuWse0faKUVskCBbFGh lXZE5Y05ph4V6 YFBlIZLnARH7rPB3qQ5oh GlnbjogbGVmdDsgdmVydG mrTGdaYYhvD141RDDarMd rRt9WPxn5X2Oj Xrx1PPQarXyhDN7rdBIjG ZxzCb4alEvwrUppPU8tFY Agndjtv989HqLzn4caEZU wcHQgVGltZXM7 U52nm6B7LYTeVGHzFYN8l PR0jW0ajViueoghbLFodS hdasQmpQgyHHiwDOfjC68 6IHRvcDsnPlBh eWVyOjwvdGQ+YB27pv48O 7OjEzenRar9CTZdSNM7qX S4bY3oFAXcRBjec5Y5zSK 9K0FpqjTncx0b d7mhEPGhXHmlR (more content not included)... Normal [facility] Prostate Histology ([facility]) on 05-16-2024 Prostate Histology Diagnosis Info Invalid Interpretation Code [facility] Comment on above: Order Comment: [...] not identified. MicroScopic Description - E:Prostate,Left Lateral Fulda:Needle Biopsy Interpretation - - Atypical glands suspicious but not diagnostic for adenocarcinoma. MicroScopic Description - F:Prostate,Left Fulda:Needle Biopsy Interpretation - - Benign prostatic tissue. MicroScopic Description - G:Prostate,Right Base:Needle Biopsy Interpretation - - Benign prostatic tissue. MicroScopic Description - H:Prostate,Right Lateral Base:Needle Biopsy Interpretation - - Benign prostatic tissue. MicroScopic Description - I:Prostate,Right Mid:Needle Biopsy Interpretation - - Benign prostatic tissue. MicroScopic Description - J:Prostate,Right Lateral Mid:Needle Biopsy Interpretation - - Benign prostatic tissue. MicroScopic Description - K:Prostate,Right Fulda:Needle Biopsy Interpretation - - Benign prostatic tissue. MicroScopic Description - L:Prostate,Right Lateral Fulda:Needle Biopsy Interpretation - - Benign prostatic tissue. [...] invasion not identified. MicroScopic Description - Q:Prostate,Left Fulda:Needle Biopsy Interpretation - - Acinar adenocarcinoma of prostate; Brenden score 6(3+3); Tumor measures 0.1 cm in length; 3% of the core involved by tumor; 1 of 2 cores involved; MicroScopic Description - R:Prostate,Left Fulda:Needle Biopsy Interpretation - - Benign prostatic tissue. [...] on: 05/16/2024 11:46:32 Performed By: #### 1 [id number] #### [facility] [address] [place] [address] Consent for Procedure/Surger yon 05-01-2024 Consent for Procedure/Surgery [id number] .00TIFF Normal [facility] Consent for Treatmenton 060 Consent for Treatment [id number] .00TIFF Normal [facility] IntraOperative Documentson 0 05-01-2024 IntraOperative Documents [id number] .00TIFF [facility] Main OR Intraoperative Recor don 05-01-2024 Main OR Intraoperative Record IntraOp Document Type FTURO Summary Primary Physician: Rufina VORA MD Finalized Date/Time: 05/01/24 12:17:31 Pt. Name: MATEO STEARNS/Sex: 1960 Male Med Rec #: [id number] Physician: Rufina VORA MD Financial #: [id number] Pt. Type: O Room/Bed: / Admit/Disch: 05/01/24 [...] Diana Whitlock Role Performed Surgeon - Primary Terrazzo Finisher - Primary Scrub - Primary Time In [...] WITH BIOPSY Primary Procedure Yes Primary Surgeon DIONY CHANDLER, Rufina Reina Start 05/01/24 11:35:00 Stop 05/01/24 11:56:00 Anesthesia [...] Verified Availability Equipment, Medication Time Out Rufina VORA MD, Verified (If Participants Gila MCLEAN, Mara Randhawa) Vanesa Whitlock, Oswaldo HOMEWORKER, Diana A Time Out Complete 05/01/24 11:35:00 Allergies [...] By: Mara Wong RN 05/01/24 12:17 Normal [facility] Main OR Preoperative Recordo n 05-01-2024 Main OR Preoperative Record Holding Area Document Type FTURO Summary Primary Physician: Rufina VORA MD Finalized Date/Time: 05/01/24 11:27:32 Pt. Name: MATEO STEARNS./Sex: 1960 Male Med Rec #: [id number] Physician: Rufina VORA MD Financial #: [id number] Pt. Type: O Room/Bed: / Admit/Disch: 05/01/24 [...] MICA Kimball RN, Ruthann 05/01/24 11:27 Normal [facility] Operative Reporton Operative Report Patient: MATEO STEARNS Age: 63 years Sex: Male : 1960 Associated Diagnoses: None Author: Rufina VORA MD Procedure Operative Information Details: Date/ Time: 05/01/2024 12:01:00. Pre-Op Dx: Hx of Prostate CA - Z85.46. Post-Op Dx: Same. Anesthesia Type: Local, Periprostatic Nerve Block. Procedure: Transrectal Ultrasound and Transrectal Ultrasound-Guided Biopsy of the Prostate. Complications: None. Risks/Benefits/Inform ed Consent: Surgical risks, benefits, details of the [...] evaluation, 18 total biopsies were taken. Normal [facility] Comment on above: Result Comment: Elec tronically Signed By: DIONY CHANDLER, Rufina Bynum.brenda\Date and Time Signed: 05/01/24 12:04 EDT Outpatient Surgery Discharge Instructionon 05-01-2024 Outpatient Surgery Discharge Instruction [id number] .[id number] Normal [facility] Patient Educationon 05-01-20 Patient Education Custom [...] for your post-operative appointment in 1-2 weeks [phone] or [phone] Normal [facility] Prostate Histology ([facility]) on 05-01-2024 PH Method of Extraction Needle Biopsy Normal [facility] Comment on above: Order Comment: left base x 3 bites Left lateral mid x 3 bites Left apex x 4 bites Performed By: #### 1 [id number] #### [facility] [address] [place] [address] PH Number of Jars 3 Invalid Interpretation Code [facility] Comment on above: Order Comment: left base x 3 bites Left lateral mid x 3 bites Left apex x 4 bites Performed By: #### 1 [id number] #### [facility] [address] [place] [address] PH Specimen 1 L Apx Prostate Normal [facility] Comment on above: Order Comment: left base x 3 bites Left lateral mid x 3 bites Left apex x 4 bites Performed By: #### 1 [id number] #### [facility] [address] [place] [address] PH Specimen 10 R Lat Bse Prost Normal [facility] Comment on above: Order Comment: left base x 3 bites Left lateral mid x 3 bites Left apex x 4 bites Performed By: #### 1 [id number] #### [facility] [address] [place] [address] PH Specimen 11 R Lat Mid Prost Normal [facility] Comment on above: Order Comment: left base x 3 bites Left lateral mid x 3 bites Left apex x 4 bites Performed By: #### 1 [id number] #### [facility] [address] [place] [address] PH Specimen 12 R Lat Apx Prost Normal [facility] Comment on above: Order Comment: left base x 3 bites Left lateral mid x 3 bites Left apex x 4 bites Performed By: #### 1 [id number] #### [facility] [address] [place] [address] PH Specimen 2 L Base Prostate Normal [facility] Comment on above: Order Comment: left base x 3 bites Left lateral mid x 3 bites Left apex x 4 bites Performed By: #### 1 [id number] #### [facility] [address] [place] [address] PH Specimen 3 L Lat Apx Prost Normal [facility] Comment on above: Order Comment: left base x 3 bites Left lateral mid x 3 bites Left apex x 4 bites Performed By: #### 1 [id number] #### [facility] [address] [place] [address] PH Specimen 4 L Lat Bse Prost Normal [facility] Comment on above: Order Comment: left base x 3 bites Left lateral mid x 3 bites Left apex x 4 bites Performed By: #### 1 [id number] #### [facility] [address] [place] [address] PH Specimen 5 L Lat Mid Prost Normal [facility] Comment on above: Order Comment: left base x 3 bites Left lateral mid x 3 bites Left apex x 4 bites Performed By: #### 1 [id number] #### [facility] [address] [place] [address] PH Specimen 6 L Mid Prostate Normal [facility] Comment on above: Order Comment: left base x 3 bites Left lateral mid x 3 bites Left apex x 4 bites Performed By: #### 1 [id number] #### [facility] [address] [place] [address] PH Specimen 7 R Apx Prostate Normal [facility] Comment on above: Order Comment: left base x 3 bites Left lateral mid x 3 bites Left apex x 4 bites Performed By: #### 1 [id number] #### [facility] [address] [place] [address] PH Specimen 8 R Base Prostate Normal [facility] Comment on above: Order Comment: left base x 3 bites Left lateral mid x 3 bites Left apex x 4 bites Performed By: #### 1 [id number] #### [facility] [address] [place] [address] PH Specimen 9 R Mid Prostate Normal [facility] Comment on above: Order Comment: left base x 3 bites Left lateral mid x 3 bites Left apex x 4 bites Performed By: #### 1 [id number] #### [facility] [address] [place] [address] PH Type of Service Technical Only Normal [facility] Comment on above: Order Comment: left base x 3 bites Left lateral mid x 3 bites Left apex x 4 bites Performed By: #### 1 [id number] #### [facility] [address] [place] [address] Patient Educationon 01-02-20 24 Patient Education Oncology [...] near your rectum, especially while sitting. ? [place]-colored urine due to small amounts of blood in your urine. ? A burning feeling while urinating. ? Blood in your stool (feces) or bleeding from your rectum. ? Blood in your semen. Follow these instructions at home: Medicines ? Take ifck-jfk-ehhrwdo and prescription medicines only as told by [...] provider. Document Revised: 05/10/2022 Document Reviewed: 05/10/2022 [employer] Patient Education ? 2022 [employer]. Transrectal Ultrasound-Guided Prostate Biopsy A transrectal ultrasound-guided [...] including vitamins, herbs, eye drops, creams, and [id number] medicines. ? Any problems you or family [...] aspirin (more content not included)... Normal [facility] Urology Office/Clinic Noteon 01-02-2024 Urology Office/Clinic Note [...] and history for this patient from Dr. Vora. I have reviewed and verified the staff [...] of prostate cancer. S/p TRUS/bx 05/17/23 - [place] score 6 (3+3) in 2 cores each [...] When Contact Information DIONY CHANDLER, Rufina Reina, [facility] [address] , [place] [address]- [phone] Additional Instructions: sched repeat TRUS/bx Patient Education Transrectal Ultrasound-Guided Prostate Biopsy, Care After Transrectal Ultrasound-Guided Prostate Biopsy I, Vesta Cortes, personally scribed for Dr. Vora on 01/02/2024 13:51:44. . Documentation recorded by the scribe, Vesta Cortes, accurately reflects the services(s) I performed and decisions made by me. Authenticated by Dr. Vora on 01/02/2024 13:53:37. Problem List/Past Medical History Ongoing Arthritis Chronic GERD Chronic hypoxemic respiratory failure Gout Lobular atelectasis Neuropathy Prostate cancer Screening PSA (prostate specific antigen) Scrotal cyst Sebaceous cyst Historical No qualifying data Procedure/Surgical History Arthroplasty of the hip, Colonoscopy, Procedure on foot, Transrectal needle biopsy of prostate. Medications aspirin, 81 mg, Oral, Daily budesonide-formoterol 160 mcg-4.5 mcg/inh Inh Aer w/adapter, 2 [...] Father. I (more content not included)... Normal [facility] Comment on above: Result Comment: Elec tronically Signed By: Rufina VORA MD\.br\Date and Time Signed: 01/02/24 13:53 EST\.br\Electronically Co-Signed By: Vesta Cortes\.br\Date and Time Co-Signed: 01/02/24 13:52 EST Lab Reportson 12-01-2023 Lab Reports [id number] .[id number] [facility] Ambulatory Visit Summaryon 0 06-06-2023 Ambulatory Visit Summary MATEO STEARNS :1960 Visit Date:06/06/2023 Ambulatory Visit Instructions Your Diagnosis Prostate cancer Sebaceous cyst Tests Performed Urnls Dip Stick Auto w/o Microscopy POC 91318 Your Care Team Attending Physician - Rufina VORA MD Primary Care Physician - KATHIE SÁNCHEZ CNP This Is Your Medications List Contact prescribing physician if questions or concerns albuterol (Ventolin HFA 90 mcg/inh Aerosol-Adpt) aspirin benzonatate (Tessalon Perles) budesonide-formoterol (budesonide-formotero l 160 mcg-4.5 mcg/inh Inh Aer w/adapter) diltiazem [...] CHANDLER, Rufina Reina Where: [facility] [place] Normal [facility] Patient Educationon 06-06-20 23 Patient Education Oncology [...] to normal prostate cells (well differentiated). ? [place] 7: This indicates that the cancer cells [...] external be (more content not included)... Normal [facility] Urology Office/Clinic Noteon 06-06-2023 Urology Office/Clinic [...] and history for this patient from Dr. Vora. I have reviewed and verified the staff [...] months [facility] [address], [place] [address] [phone] Additional Instructions: PSA and ANNE-MARIE Patient Education Prostate Cancer I, Vesta Cortes, personally scribed for Dr. Vora on 06/06/2023 11:47:20. . Documentation recorded by the scribe, Vesta Cortes, accurately reflects the services(s) I performed and decisions made by me. Authenticated by Dr. Vora on 06/06/2023 11:52:45. Problem List/Past Medical History Ongoing Arthritis Chronic GERD Chronic hypoxemic respiratory failure Gout Lobular atelectasis Neuropathy Prostate cancer Screening PSA (prostate specific antigen) Scrotal cyst Sebaceous cyst Historical No qualifying data Procedure/Surgical History Arthroplasty of the hip, Colonoscopy, Procedure on foot, Transrectal needle biopsy of prostate. Medications aspirin, 81 mg, Oral, Daily budesonide-formoterol 160 mcg-4.5 mcg/inh Inh Aer w/adapter, 2 [...] Cigarettes, 02/07/2023 (more content not included)... Normal [facility] Comment on above: Result Comment: Elec tronically Signed By: Rufina VORA MD\.br\Date and Time Signed: 06/06/23 11:52 EDT\.br\Electronically Co-Signed By: Vesta Cortes.br\Date and Time Co-Signed: 06/06/23 11:47 EDT PSA, FREE AND TOTAL RATIOon 04-13-2023 % Free PSA 12.1 % Normal [facility] Comment on above: Result Comment: The [...] men. Performed By: #### H ISTGAL #### [facility] [address] [place] [address] Dr. James Crowley Prostate specific Ag [Mass/Vol] 3.4 ng/mL Normal 0.0-4.0 [facility] Comment on above: Result Comment: Rosa Elena DESHPANDE methodology. . According to the [employer], Serum PSA should decrease and [...] disease. Performed By: #### H ISTGAL #### [facility] [address] [place] [address] Dr. James Crowley PSA, Free 0.41 ng/mL Normal N/A [facility] Comment on above: Result Comment: Rosa Elena edwards ECLIA methodology. Performed By: #### H ISTGAL #### [facility] [address] [place] [address] Dr. James Crowley CBC AUTO DIFFon 04-08-2023 BASO # 0.1 103/ul Normal 0.0-0.1 [facility] Comment on above: Performed By: #### C BC #### [facility] [address] [place] [address] Dr. James Crowley Basophils/100 WBC (Bld) 0.5 % Normal 0.2-2.0 [facility] Comment on above: Performed By: #### C BC #### [facility] [address] [place] [address] Dr. James Crowley EO # 0.1 103/ul Normal 0.0-0.7 [facility] Comment on above: Performed By: #### C BC #### [facility] [address] [place] [address] Dr. James Crowley Eosinophils/100 WBC (Bld) 1.3 % Normal 0.9-7.0 [facility] Comment on above: Performed By: #### C BC #### [facility] [address] [place] [address] Dr. James Crowley Erythrocyte distribution width (RBC) [Ratio] 13.5 % Normal 11.0-15.0 [facility] Comment on above: Performed By: #### C BC #### [facility] [address] [place] [address] Dr. James Crowley Hematocrit (Bld) [Volume fraction] 48.4 % Normal 42.0-54.0 [facility] Comment on above: Performed By: #### C BC #### [facility] [address] [place] [address] Dr. James Crowley Hemoglobin (Bld) [Mass/Vol] 15.6 g/dL Normal 14.0-18.0 [facility] Comment on above: Performed By: #### C BC #### [facility] [address] [place] [address] Dr. James Crowley IG # 0.08 10e3/ul Critically high 0.00-0.03 [facility] Comment on above: Performed By: #### C BC #### [facility] [address] [place] [address] Dr. James Crowley IG % 0.8 % Critically high 0.0-0.5 [facility] Comment on above: Performed By: #### C BC #### [facility] [address] [place] [address] Dr. James Crowley LYMPH # 3.1 103/ul Normal 1.2-3.8 [facility] Comment on above: Performed By: #### C BC #### [facility] [address] [place] [address] Dr. James Crowley Lymphocytes/100 WBC (Bld) 29.8 % Normal 20.5-60.0 [facility] Comment on above: Performed By: #### C BC #### [facility] [address] [place] [address] Dr. James Crowley MANUAL DIFF REQ NO Normal [facility] Comment on above: Performed By: #### C BC #### [facility] [address] [place] [address] Dr. James Crowley MCH (RBC) [Entitic mass] 29.3 pg Normal 25.9-34.0 [facility] Comment on above: Performed By: #### C BC #### [facility] [address] [place] [address] Dr. James Crowley MCHC (RBC) [Mass/Vol] 32.2 g/dL Normal 29.9-35.2 [facility] Comment on above: Performed By: #### C BC #### [facility] [address] [place] [address] Dr. James Crowley MCV (RBC) [Entitic vol] 90.8 fL Normal 80.0-94.0 [facility] Comment on above: Performed By: #### C BC #### [facility] [address] [place] [address] Dr. James Crowley MONO # 0.6 103/ul Normal 0.3-0.8 [facility] Comment on above: Performed By: #### C BC #### [facility] [address] [place] [address] Dr. Jaems Crowley Monocytes/100 WBC (Bld) 5.9 % Normal 1.7-12.0 [facility] Comment on above: Performed By: #### C BC #### [facility] [address] [place] [address] Dr. James Crowley NEUT # 6.4 103/ul Normal 1.4-6.5 [facility] Comment on above: Performed By: #### C BC #### [facility] [address] [place] [address] Dr. James Crowley Neutrophils/100 WBC (Bld) 61.7 % Normal 43.0-75.0 [facility] Comment on above: Performed By: #### C BC #### [facility] [address] [place] [address] Dr. James Crowley Platelet mean volume (Bld) [Entitic vol] 9.1 fL Critically low 9.5-13.5 [facility] Comment on above: Performed By: #### C BC #### [facility] [address] [address] [address] James Crowley PLT 320 103/ul Normal 150-450 [facility] Comment on above: Performed By: #### C BC #### [facility] [address] [place] [address] Dr. James Crowley RBC 5.33 106/ul Normal 4.70-6.10 [facility] Comment on above: Performed By: #### C BC #### [facility] [address] [place] [address] Dr. James Crowley WBC 10.4 103/ul Normal 4.0-11.0 [facility] Comment on above: Performed By: #### C BC #### [facility] [address] [place] [address] CHEST W CONon 04-08-2023 CT CHEST W CON EXAMINATION: CT CHES T W CON HISTORY: Lung field abnormal ; [...] by: LEONOR MA Date: 2023-04-08 10:41 Normal [facility] LIPID PROFILEon 04-08-2023 CHOL-HDL RATIO NORM SEE BELOW Normal [facility] Comment on above: Result Comment: 3.3 - 4.4 LOW RISK 4.4 - 7.1 AVERAGE RISK 7.1 - 11.0 MODERATE RISK >11.0 HIGH RISK Performed By: #### U NEO, LIPID #### [facility] [address] [address] [address] James Crowley Cholesterol [Mass/Vol] 204 mg/dL Critically high <=200 [facility] Comment on above: Performed By: #### U NEO, LIPID #### [facility] [address] [address] [address] James Crowley Cholesterol in HDL [Mass/Vol] 55 mg/dL Normal 40-60 [facility] Comment on above: Performed By: #### U NEO, LIPID #### [facility] [address] [address] [address] James Crowley Cholesterol in LDL [Mass/Vol] 115.2 mg/dL Normal [facility] Comment on above: Performed By: #### U NEO, LIPID #### [facility] [address] [address] [address] James Crowley Cholesterol.total/C holesterol in HDL [Mass ratio] 3.7 {ratio} Normal [facility] Comment on above: Performed By: #### U NEO, LIPID #### [facility] [address] [address] [address] James Crowley HDL NORMAL > or = 60 mg/dl - LO W CARDIOVASCULAR RISK <40 mg/dl - HIGH CARDIOVASCULAR RISK Normal [facility] Comment on above: Performed By: #### U NEO, LIPID #### [facility] [address] [address] [address] James Crowley LDL CALC NORMAL SEE BELOW Normal [facility] Comment on above: Result Comment: <100 mg/dl OPTIMAL 100 - 129 mg/dl NEAR OR ABOVE OPTIMAL 130 - 159 mg/dl BORDERLINE HIGH 160 - 189 mg/dl HIGH >190 mg/dl VERY HIGH Performed By: #### U NEO, LIPID #### [facility] [address] [address] [address] James Crowley Triglyceride [Mass/Vol] 169 mg/dL Critically high <=150 [facility] Comment on above: Performed By: #### U NEO, LIPID #### [facility] [address] [address] [address] James Crowley VLDL CALC 33.8 mg/dL Normal [facility] Comment on above: Performed By: #### U NEO, LIPID #### [facility] [address] [address] [address] James Crowley PROF 14(COMP METB)on 023 Albumin [Mass/Vol] 3.7 g/dL Normal 3.4-5.0 [facility] Comment on above: Performed By: #### U NEO, LIPID #### [facility] [address] [address] [address] James Crowley Albumin/Globulin [Mass ratio] 0.9 {ratio} Normal [facility] Comment on above: Performed By: #### U NEO, LIPID #### [facility] [address] [address] [address] James Crowley ALP [Catalytic activity/Vol] 86 U/L Normal 46-116 [facility] Comment on above: Performed By: #### U NEO, LIPID #### [facility] [address] [address] [address] James Crowley ALT [Catalytic activity/Vol] 33 U/L Normal 16-63 [facility] Comment on above: Performed By: #### U NEO, LIPID #### [facility] [address] [address] [address] James Crowley Anion gap [Moles/Vol] 14.8 mmol/L Normal [facility] Comment on above: Performed By: #### U NEO, LIPID #### [facility] [address] [address] [address] James Crowley AST [Catalytic activity/Vol] 16 U/L Normal 15-37 [facility] Comment on above: Performed By: #### U NEO, LIPID #### [facility] [address] [address] [address] James Crowley Bilirubin [Mass/Vol] 0.7 mg/dL Normal 0.2-1.0 [facility] Comment on above: Performed By: #### U NEO, LIPID #### [facility] [address] [address] [address] James Crowley Calcium [Mass/Vol] 9.1 mg/dL Normal 8.5-10.1 [facility] Comment on above: Performed By: #### U NEO, LIPID #### [facility] [address] [place] [address] Dr. James Crowley Chloride [Moles/Vol] 107 mmol/L Normal 98-107 [facility] Comment on above: Performed By: #### U NEO, LIPID #### [facility] [address] [place] [address] Dr. James Crowley CO2 [Moles/Vol] 28.0 mmol/L Normal 21.0-32.0 [facility] Comment on above: Performed By: #### U NEO, LIPID #### [facility] [address] [place] [address] Dr. James Crowley Creatinine [Mass/Vol] 1.10 mg/dL Normal 0.70-1.30 [facility] Comment on above: Performed By: #### U NEO, LIPID #### [facility] [address] [place] [address] Dr. James Crowley EGFR-AF NEW ZEALANDER >60 Normal >=60 [facility] Comment on above: Performed By: #### U NEO, LIPID #### [facility] [address] [address] [address] James Crowley EGFR-NON AF [place]ANDER >60 Normal >=60 [facility] Comment on above: Performed By: #### U NEO, LIPID #### [facility] [address] [address] [address] James Crowley Globulin (S) [Mass/Vol] 3.9 g/dL Normal [facility] Comment on above: Performed By: #### U NEO, LIPID #### [facility] [address] [address] [address] James Crowley Glucose [Mass/Vol] 98 mg/dL Normal 74-106 [facility] Comment on above: Performed By: #### U NEO, LIPID #### [facility] [address] [address] [address] James Crowley Potassium [Moles/Vol] 3.8 mmol/L Normal 3.5-5.1 [facility] Comment on above: Performed By: #### U NEO, LIPID #### [facility] [address] [address] [address] James Crowley Protein [Mass/Vol] 7.6 g/dL Normal 6.4-8.2 [facility] Comment on above: Performed By: #### U NEO, LIPID #### [facility] [address] [address] [address] James Crowley Sodium [Moles/Vol] 146 mmol/L Critically high 136-145 [facility] Comment on above: Performed By: #### U NEO, LIPID #### [facility] [address] [address] [address] James Crowley Urea nitrogen [Mass/Vol] 18.0 mg/dL Normal 7.0-18.0 [facility] Comment on above: Performed By: #### U NEO, LIPID #### [facility] [address] [address] [address] James Crowley Urea nitrogen/Creatinine [Mass ratio] 16.4 mg/mg Normal [facility] Comment on above: Performed By: #### U NEO, LIPID #### [facility] [address] [address] [address] James Crowley URIC ACID SERUMon 04-08-2023 Urate [Mass/Vol] 6.7 mg/dL Normal 3.5-7.2 [facility] Comment on above: Performed By: #### U NEO, LIPID #### [facility] [address] CHEST WO CONon 01-04-2023 CT CHEST WO CON EXAMINATION: CT CHES T WO CON HISTORY: Lung field abnormal ; [...] LEONOR MA Date: 2023-01-04 10:52 Normal [facility] CT CHEST WO CONon 10-07-2022 CT CHEST WO CON EXAMINATION: CT CHES T WO CON HISTORY: Lung field abnormal ; [...] by: LEONOR MA Date: 2022-10-07 16:05 Normal [facility] ACID FAST SMEAR AND CXon Acid Fast Culture Negative Normal [facility] Comment on above: Result Comment: No a tomi fast bacilli isolated after 6 weeks. Performed By: #### U NEO, LIPID #### [facility] [address] [address] [address] James Crowley Acid Fast Smear Negative Normal [facility] Comment on above: Performed By: #### U NEO, LIPID #### [facility] [address] [address] [address] James Crowley [employer] Specimen Processing Concentration Normal [facility] Comment on above: Performed By: #### U NEO, LIPID #### [facility] [address] [address] [address] James Crowley FUNGAL AB QUANTITAIVE DOUBLE IMMUNODIFFUon 08-22-2022 Aspergillus flavus Negative Normal Neg:<1:1 [facility] Comment on above: Performed By: #### F UNGUYI #### [facility] [address] [address] [address] James Crowley Aspergillus fumigatus Negative Normal Neg:<1:1 [facility] Comment on above: Performed By: #### F UNGUYI #### [facility] [address] [address] [address] James Crowley Aspergillus niger Negative Normal Neg:<1:1 [facility] Comment on above: Performed By: #### F UNGUYI #### [facility] [address] [address] [address] James Crowley Blastomyces Negative Normal Neg:<1:1 [facility] Comment on above: Performed By: #### F UNGUYI #### [facility] [address] [address] [address] James Crowley COXSACKIE B VIRUS ANTIBODIES on 08-21-2022 [place] B-1 Ab Negative Normal Neg:<1:8 [facility] Comment on above: Performed By: #### C OXSBV #### [facility] [address] [address] [address] James Crowley [place] B-2 Ab Negative Normal Neg:<1:8 [facility] Comment on above: Performed By: #### C OXSBV #### [facility] [address] [place] [address] Dr. James Crowley coxsackie B-3 Ab Negative Normal Neg:<1:8 [facility] Comment on above: Performed By: #### C OXSBV #### [facility] [address] [address] [address] James Crowley [place] B-4 Ab Negative Normal Neg:<1:8 [facility] Comment on above: Performed By: #### C OXSBV #### [facility] [address] [address] [address] James Crowley [place] B-5 Ab Negative Normal Neg:<1:8 [facility] Comment on above: Performed By: #### C OXSBV #### [facility] [address] [address] [address] James Crowley [place] B-6 Ab Negative Normal Neg:<1:8 [facility] Comment on above: Performed By: #### C OXSBV #### [facility] [address] [place] [address] Dr. James Crowley HISTOPLASMA CAP AB QUANT DID on 08-21-2022 Histoplasma Mycelial CF Ab. Negative Normal Neg:<1:2 [facility] Comment on above: Performed By: #### H ISTGAL #### [facility] [address] [address] [address] James Cleaningoplasma Yeast CF Ab Negative Normal Neg:<1:2 [facility] Comment on above: Performed By: #### H ISTGAL #### [facility] [address] [place] [address] Dr. James Crowley [place] A VIRUS AB IGMon 0 08-20-2022 [place] A16 IgM Negative Normal Neg:<1:10 [facility] Comment on above: Performed By: #### C OXSIGM #### [facility] [address] [place] [address] Dr. James Crowley Coxsarembertoie A24 IgM Negative Normal Neg:<1:10 [facility] Comment on above: Performed By: #### C OXSIGM #### [facility] [address] [place] [address] Dr. James Crowley Coxsaremberto[place] A7 IgM Negative Normal Neg:<1:10 [facility] Comment on above: Performed By: #### C OXSIGM #### [facility] [address] [place] [address] Dr. James Altamiranosarembertoie A9 IgM Negative Normal Neg:<1:10 [facility] Comment on above: Performed By: #### C OXSIGM #### [facility] [address] [place] [address] Dr. James Crowley HISTOPLASMA GALACTOMANNAN AG URINEon 08-20-2022 Histoplasma Gal'shwetha Ag <0.5 Normal <0.5 ng/mL [facility] Comment on above: Performed By: #### H ISTGAL #### [facility] [address] [address] [address] James Crowley QUANTIFERON TB GOLD PLUSon 0 08-20-2022 QuantiFERON Criteria Comment Normal [facility] Comment on above: Result Comment: Vick [...] test. Performed By: #### Q NTTB #### [facility] [address] [place] [address] Dr. James Crowley QuantiFERON Incubation Incubation performed. Normal [facility] Comment on above: Performed By: #### Q NTTB #### [facility] [address] [place] [address] Dr. James Crowley QuantiFERON Mitogen Value >10.00 Normal [facility] Comment on above: Performed By: #### Q NTTB #### [facility] [address] [place] [address] Dr. James Crowley QuantiFERON Nil Value 0.04 IU/mL Normal [facility] Comment on above: Performed By: #### Q NTTB #### [facility] [address] [place] [address] Dr. James Crowley QuantiFERON TB1 Ag Value 0.04 IU/mL Normal [facility] Comment on above: Performed By: #### Q NTTB #### [facility] [address] [place] [address] Dr. James Crowley QuantiFERON TB2 Ag Value 0.05 IU/mL Normal [facility] Comment on above: Performed By: #### Q NTTB #### [facility] [address] [place] [address] Dr. James Crowley QuantiFERON-TB Gold Plus Negative Normal Negative [facility] Comment on above: Result Comment: No r esponse to M tuberculosis antigens detected. Infection with M tuberculosis is unlikely, but high risk individuals should be considered for additional testing (ATS/IDSA/CDC Clinical Practice Guidelines, 2017). The reference range is an Antigen minus Nil result of <0.35 IU/mL. Chemiluminescence immunoassay methodology Performed By: #### Q NTTB #### [facility] [address] [address] [address] James Crowley CREATININEon 08-18-2022 Creatinine [Mass/Vol] 0.97 mg/dL Normal 0.70-1.30 [facility] Comment on above: Performed By: #### H ISTGAL #### [facility] [address] [place] [address] Dr. James Crowley EGFR-AF NEW ZEALANDER >60 Normal >=60 [facility] Comment on above: Performed By: #### H ISTGAL #### [facility] [address] [place] [address] Dr. James Crowley EGFR-NON AF NEW ZEALANDER >60 Normal >=60 [facility] Comment on above: Performed By: #### H ISTGAL #### [facility] [address] [place] [address] CHEST W CONon 08-18-2022 CT CHEST W CON EXAMINATION: CT CHES T W CON HISTORY: Imaging result abnormal ; [...] LEONOR MA Date: 2022-08-18 10:27 Normal [facility] CULTURE SPUTUMon 08-18-2022 CULTURE SPUTUM Isolate 1 Haemophilus parainfluenzae Moderate growth of Normal [facility] Comment on above: Result Comment: Beta -Lactamase: Negative Performed By: #### H ISTGAL #### [facility] [address] [place] [address] Dr. James Crowley SPUTUM GRAM STAINon 08-18-20 22 COMMENTS Normal [facility] Comment on above: Performed By: #### H ISTGAL #### [facility] [address] [place] [address] Dr. James Crowley DIPHTHEROIDS Normal [facility] Comment on above: Performed By: #### H ISTGAL #### [facility] [address] [address] [address] James Crowley EPITHELIALS <25 Normal [facility] Comment on above: Performed By: #### H ISTGAL #### [facility] [address] [address] [address] James Crowley FUNGAL ELEMENTS Normal [facility] Comment on above: Performed By: #### H ISTGAL #### [facility] [address] [address] [address] James Crowley GRAM NEG BACILLI Normal [facility] Comment on above: Performed By: #### H ISTGAL #### [facility] [address] [address] [address] James KAN NEG DIPPLOCOCCI FEW Normal [facility] Comment on above: Performed By: #### H ISTGAL #### [facility] [address] [place] [address] Dr. James Crowley GRAM POS BACILLI Normal [facility] Comment on above: Performed By: #### H ISTGAL #### [facility] [address] [place], [place] [address] Dr. James Crowley GRAM POSITIVE COCCI FEW Normal [facility] Comment on above: Performed By: #### H ISTGAL #### [facility] [address] [place], [place] [address] Dr. James Crowley WBC (Bld) [#/Vol] 10*3/uL Normal [facility] Comment on above: Performed By: #### H ISTGAL #### [facility] [address] [place], [place] [address] Dr. James Crowley XR RIBS RT PA James XR RIBS RT PA CH EXAMINATION: XR [...] [place] CISNEROS Date: 2022-08-12 13:02 Normal [facility] Covid-19 PCR (CVDTB)on SARS-CoV-2 (COVID-19) RNA SOURAV+probe Ql (Unsp spec) Not detected Normal NOT DETECTED [facility] Comment on above: Result Comment: [...] for this test is supported by the Automation Operator of Health and Human Service's declaration [...] used). Performed By: #### C VDTBH #### [facility] [address] [place] [address] Dr. James Rey 03-24-2021 L - -------- Specimen: [id number] Received: 03/24/21 Status: BOSTON Mathews Num: [id number] Spec Type: Surgical Subm Dr: Bryan Quick MD Tissues: A Skin-Other than Cyst, tag, debridement or plastic repair (LT NASAL DORSUM) Procedures: HE Stain, Gross/Micro L4 -------- Patient Age/Sex Location Account Attending Physician -------- Mateo Stearns/Oj CÁRDENAS [id number] Bryan Quick MD -------- SPEC NUM: RECD: 03/24/21 STATUS: DONTASaturnino MATHEWS NUM: [id number] FRANCISCA: 03/24/[address] [facility] DR: Bryan Quick MD ENTERED: 03/24/[address] [facility] [address]: MYAH TYPE: Surgical DEPT: S [...] microscopic findings support the above pathologic diagnosis. [id number] -------- -------- Specimen: Received: 03/24/21 Status: BOSTON Mathews Num: [id number] Spec Type: Surgical Subm Dr: Bryan Quick MD Tissues: A Skin-Other than Cyst, tag, debridement or plastic repair (LT NASAL DORSUM) Procedures: HE Stain, Gross/Micro L4 -------- Patient: Mateo Stearns [id number] (Continued) -------- Signed (signature on file) Cindy Garcia MD 03/25/211823 [facility] Vital Signs Date Time Vital Sign Value Performing Clinician Facility 11-02-2024 10:33-0500 Body temperature 98.4 [degF] MEI Dent MD Work Phone: [facility] 11-02-2024 10:33-0500 Diastolic blood pressure 82 mm[Hg] MEI Dent MD Work Phone: [facility] 11-02-2024 10:33-0500 Heart rate 100 /min MEI Dent MD Work Phone: [facility] 11-02-2024 10:33-0500 Respiratory rate 18 /min MEI Dent MD Work Phone: [facility] 11-02-2024 10:33-0500 SaO2% (BldA) [Mass fraction] 97 % MEI Dent MD Work Phone: [facility] 11-02-2024 10:33-0500 Systolic blood pressure 118 mm[Hg] MEI Dent MD Work Phone: [facility] 10-29-2024 10:28-0500 Body mass index (BMI) [Ratio] 23.38 kg/m2 MEI Dent MD Work Phone: [facility] 10-29-2024 10:28-0500 Body temperature 97.9 [degF] MEI Dent MD Work Phone: [facility] 10-29-2024 10:28-0500 Body weight 67.7 kg MEI Dent MD Work Phone: [facility] 10-29-2024 10:28-0500 Diastolic blood pressure 84 mm[Hg] MEI Dent MD Work Phone: [facility] 10-29-2024 10:28-0500 Heart rate 81 /min MEI Dent MD Work Phone: [facility] 10-29-2024 10:28-0500 Respiratory rate 18 /min MEI Dent MD Work Phone: [facility] 10-29-2024 10:28-0500 SaO2% (BldA) [Mass fraction] 95 % MEI Dent MD Work Phone: [facility] 10-29-2024 10:28-0500 Systolic blood pressure 126 mm[Hg] MEI Dent MD Work Phone: [facility] 10-22-2024 10:26-0500 Body mass index (BMI) [Ratio] 23.34 kg/m2 MEI Dent MD Work Phone: [facility] 10-22-2024 10:26-0500 Body temperature 97.11 [degF] MEI Dent MD Work Phone: [facility] 10-22-2024 10:26-0500 Body weight 67.6 kg MEI Dent MD Work Phone: [facility] 10-22-2024 10:26-0500 Diastolic blood pressure 81 mm[Hg] MEI Dent MD Work Phone: [facility] 10-22-2024 10:26-0500 Heart rate 71 /min MEI Dent MD Work Phone: [facility] 10-22-2024 10:26-0500 Respiratory rate 18 /min MEI Dent MD Work Phone: [facility] 10-22-2024 10:26-0500 SaO2% (BldA) [Mass fraction] 91 % MEI Dent MD Work Phone: [facility] 10-22-2024 10:26-0500 Systolic blood pressure 127 mm[Hg] EMI Dent MD Work Phone: [facility] 10-16-2024 10:59-0500 Body height 175.3 cm Kathie Sánchez CHECK PILOT Work Phone: [facility] 10-16-2024 10:59-0500 Body mass index (BMI) [Ratio] 22.21 kg/m2 Kathie Princess CHECK PILOT Work Phone: [facility] 10-16-2024 10:59-0500 Body temperature 98.01 [degF] Kathie Marimarz CHECK PILOT Work Phone: [facility] 10-16-2024 10:59-0500 Body weight 68.22 kg Kathie Princess CHECK PILOT Work Phone: [facility] 10-16-2024 10:59-0500 Diastolic blood pressure 78 mm[Hg] Kathie Marimarz CHECK PILOT Work Phone: [facility] 10-16-2024 10:59-0500 Heart rate 78 /min Kathie Marimarz CHECK PILOT Work Phone: [facility] 10-16-2024 10:59-0500 Respiratory rate 20 /min Kathie Princess CHECK PILOT Work Phone: [facility] 10-16-2024 10:59-0500 SaO2% (BldA) [Mass fraction] 92 % Kathie Princess CHECK PILOT Work Phone: [facility] 10-16-2024 10:59-0500 Systolic blood pressure 110 mm[Hg] Kathie Hunterrach CHECK PILOT Work Phone: [facility] 10-15-2024 10:45-0500 Body mass index (BMI) [Ratio] 23.45 kg/m2 MEI Dent MD Work Phone: [facility] 10-15-2024 10:45-0500 Body temperature 97.81 [degF] MEI Dent MD Work Phone: [facility] 10-15-2024 10:45-0500 Body weight 67.9 kg MEI Dent MD Work Phone: [facility] 10-15-2024 10:45-0500 Diastolic blood pressure 81 mm[Hg] MEI Dent MD Work Phone: [facility] 10-15-2024 10:45-0500 Heart rate 87 /min MEI Dent MD Work Phone: [facility] 10-15-2024 10:45-0500 Respiratory rate 16 /min MEI Dent MD Work Phone: [facility] 10-15-2024 10:45-0500 SaO2% (BldA) [Mass fraction] 95 % MEI Dent MD Work Phone: [facility] 10-15-2024 10:45-0500 Systolic blood pressure 121 mm[Hg] MEI Dent MD Work Phone: [facility] 10-08-2024 10:34-0500 Body mass index (BMI) [Ratio] 23.69 kg/m2 MEI Dent MD Work Phone: [facility] 10-08-2024 10:34-0500 Body temperature 96.69 [degF] MEI Dent MD Work Phone: [facility] 10-08-2024 10:34-0500 Body weight 68.6 kg MEI Dent MD Work Phone: [facility] 10-08-2024 10:34-0500 Diastolic blood pressure 76 mm[Hg] MEI Dent MD Work Phone: [facility] 10-08-2024 10:34-0500 Heart rate 103 /min MEI Detn MD Work Phone: [facility] 10-08-2024 10:34-0500 Respiratory rate 18 /min MEI Dent MD Work Phone: [facility] 10-08-2024 10:34-0500 SaO2% (BldA) [Mass fraction] 90 % MEI Dent MD Work Phone: [facility] 10-08-2024 10:34-0500 Systolic blood pressure 165 mm[Hg] MEI Dent MD Work Phone: [facility] 10-01-2024 10:42-0500 Body mass index (BMI) [Ratio] 23.34 kg/m2 MEI Dent MD Work Phone: [facility] 10-01-2024 10:42-0500 Body temperature 97.9 [degF] MEI Dent MD Work Phone: [facility] 10-01-2024 10:42-0500 Body weight 67.6 kg MEI Dent MD Work Phone: [facility] 10-01-2024 10:42-0500 Diastolic blood pressure 83 mm[Hg] MEI Dent MD Work Phone: [facility] 10-01-2024 10:42-0500 Heart rate 99 /min MEI Dent MD Work Phone: [facility] 10-01-2024 10:42-0500 Respiratory rate 18 /min MEI Dent MD Work Phone: [facility] 10-01-2024 10:42-0500 SaO2% (BldA) [Mass fraction] 87 % MEI Dent MD Work Phone: [facility] Comment on above: Wearing mask, Normal for him with mask o n 10-01-2024 10:42-0500 Systolic blood pressure 129 mm[Hg] MEI Dent MD Work Phone: [facility] 09-25-2024 14:15-0400 Body mass index (BMI) [Ratio] 23.17 kg/m2 MEI Dent MD Work Phone: [facility] 09-25-2024 14:15-0400 Body weight 67.1 kg MEI Dent MD Work Phone: [facility] 09-13-2024 10:27-0400 Body height 175.3 cm Kathie Sánchez CHECK PILOT Work Phone: [facility] 09-13-2024 10:27-0400 Body mass index (BMI) [Ratio] 21.8 kg/m2 Kathietopher Sánchez CHECK PILOT Work Phone: [facility] 09-13-2024 10:27-0400 Body temperature 98.4 [degF] Kathietopher Sánchez CHECK PILOT Work Phone: [facility] 09-13-2024 10:27-0400 Body weight 66.95 kg Kathietopher Sánchez CHECK PILOT Work Phone: [facility] 09-13-2024 10:27-0400 Heart rate 96 /min Kathie Sánchez CHECK PILOT Work Phone: [facility] 09-13-2024 10:27-0400 Respiratory rate 10 /min Kathie Princess CHECK PILOT Work Phone: [facility] 09-13-2024 10:27-0400 SaO2% (BldA) [Mass fraction] 97 % Kathie Sánchez CHECK PILOT Work Phone: [facility] 09-11-2024 13:33-0400 Body mass index (BMI) [Ratio] 23.51 kg/m2 MEI Dent MD Work Phone: [facility] 09-11-2024 13:33-0400 Body temperature 97.81 [degF] MEI Dent MD Work Phone: [facility] 09-11-2024 13:33-0400 Body weight 68.1 kg MEI Dent MD Work Phone: [facility] 09-11-2024 13:33-0400 Diastolic blood pressure 82 mm[Hg] MEI Dent MD Work Phone: [facility] 09-11-2024 13:33-0400 Heart rate 80 /min MEI Dent MD Work Phone: [facility] 09-11-2024 13:33-0400 Respiratory rate 18 /min MEI Dent MD Work Phone: [facility] 09-11-2024 13:33-0400 SaO2% (BldA) [Mass fraction] 94 % MEI Dent MD Work Phone: [facility] 09-11-2024 13:33-0400 Systolic blood pressure 146 mm[Hg] MEI Dent MD Work Phone: [facility] 07-12-2024 13:06-0400 Body mass index (BMI) [Ratio] 23.41 kg/m2 MEI Dent MD Work Phone: [facility] 07-12-2024 13:06-0400 Body temperature 98.1 [degF] MEI Dent MD Work Phone: [facility] 07-12-2024 13:06-0400 Body weight 67.8 kg MEI Dent MD Work Phone: [facility] 07-12-2024 13:06-0400 Diastolic blood pressure 83 mm[Hg] MEI Dent MD Work Phone: [facility] 07-12-2024 13:06-0400 Heart rate 95 /min MEI Dent MD Work Phone: [facility] 07-12-2024 13:06-0400 Respiratory rate 18 /min MEI Dent MD Work Phone: [facility] 07-12-2024 13:06-0400 SaO2% (BldA) [Mass fraction] 95 % MEI Dent MD Work Phone: [facility] 07-12-2024 13:06-0400 Systolic blood pressure 157 mm[Hg] MEI Dent MD Work Phone: [facility] 06-21-2024 13:13-0400 Body height 170.2 cm MEI Dent MD Work Phone: [facility] 06-21-2024 13:13-0400 Body mass index (BMI) [Ratio] 23.41 kg/m2 MEI Dent MD Work Phone: [facility] 06-21-2024 13:13-0400 Body temperature 97.5 [degF] NA Manolo CHANDLER Work Phone: [facility] 06-21-2024 13:13-0400 Body weight 67.8 kg MEI Dent MD Work Phone: [facility] 06-21-2024 13:13-0400 Diastolic blood pressure 75 mm[Hg] MEI Dent MD Work Phone: [facility] 06-21-2024 13:13-0400 Heart rate 86 /min MEI Dent MD Work Phone: [facility] 06-21-2024 13:13-0400 Respiratory rate 20 /min MEI Dent MD Work Phone: [facility] 06-21-2024 13:13-0400 SaO2% (BldA) [Mass fraction] 95 % MEI Dent MD Work Phone: [facility] 06-21-2024 13:13-0400 Systolic blood pressure 124 mm[Hg] MEI Dent MD Work Phone: [facility] 06-01-2024 13:13-0400 Body height 175.3 cm Amandeep Crisostomo MD Work Phone: [facility] 06-01-2024 13:13-0400 Body mass index (BMI) [Ratio] 22.14 kg/m2 Amandeep Crisostomo MD Work Phone: [facility] 06-01-2024 13:13-0400 Body weight 68 kg Amandeep Crisostomo MD Work Phone: [facility] 06-01-2024 13:13-0400 Diastolic blood pressure 81 mm[Hg] Amandeep Crisostomo MD Work Phone: [facility] 06-01-2024 13:13-0400 Heart rate 88 /min Amandeep Crisostomo MD Work Phone: [facility] 06-01-2024 13:13-0400 Systolic blood pressure 138 mm[Hg] Amandeep Crisostomo MD Work Phone: [facility] 05-21-2024 11:35-0400 Blood Pressure Location Rufina VORA [facility] 05-21-2024 11:35-0400 Body temperature 98.6 [degF] Rufina VORA [facility] 05-21-2024 11:35-0400 Diastolic blood pressure 84 mm[Hg] Rufina VORA [facility] 05-21-2024 11:35-0400 Heart rate 76 /min Rufina VORA [facility] 05-21-2024 11:35-0400 Respiratory rate 16 /min Rufina VORA [facility] 05-21-2024 11:35-0400 Systolic blood pressure 139 mm[Hg] Rufina VORA [facility] 06-06-2023 10:36-0400 Blood Pressure Location Rufina VORA [facility] 06-06-2023 10:36-0400 Diastolic blood pressure 76 mm[Hg] Rufina VORA [facility] 06-06-2023 10:36-0400 Heart rate 72 /min Rufina VORA [facility] 06-06-2023 10:36-0400 Respiratory rate 16 /min Rufina VORA [facility] 06-06-2023 10:36-0400 Systolic blood pressure 130 mm[Hg] Rufina VORA [facility] 02-07-2023 12:42-0400 Blood Pressure Location Rufian VORA [facility] 02-07-2023 12:42-0400 Diastolic blood pressure 77 mm[Hg] Rufina VORA [facility] 02-07-2023 12:42-0400 Heart rate 74 /min Rufina VORA [facility] 02-07-2023 12:42-0400 Systolic blood pressure 138 mm[Hg] Rufina VORA [facility] 05-17-2022 12:56-0400 Blood Pressure Location Rufina VORA [facility] 05-17-2022 12:56-0400 Diastolic blood pressure 87 mm[Hg] Rufina VORA [facility] 05-17-2022 12:56-0400 Heart rate 79 /min Rufina VORA [facility] 05-17-2022 12:56-0400 Respiratory rate 16 /min Rufina VORA [facility] 05-17-2022 12:56-0400 Systolic blood pressure 139 mm[Hg] Rufina VORA [facility] En[facility] Encounter Date Encounter Type Care Provider Facility Start: 11-26-2024 End: 11-26-2024 Social Gregoria DESHPANDE Hematology/Oncology Start: 11-02-2024 End: 11-09-2024 Radiation Oncology Note Severo Dent MD Work Phone: [facility] Comment on above: Completion Note Start: 11-02-2024 End: 11-09-2024 Patient encounter procedure Severo Dent MD Work Phone: [facility]iation [facility]cology Comment on above: Malignant neoplasm o f prostate (HCC) (Primary Dx) Start: 11-02-2024 End: 11-02-2024 ambulatory Severo DENT Facility:[facility] Start: 11-01-2024 End: 11-01-2024 ambulatory Severo DENT Facility:[facility] Start: 10-31-2024 End: 10-31-2024 ambulatory Severo DENT Facility:[facility] Start: 10-30-2024 End: 10-30-2024 ambulatory Severo DENT Facility:[facility] Start: 10-29-2024 End: 10-29-2024 Patient encounter procedure Severo Dent MD Work Phone: Radiation Oncology Comment on above: Malignant neoplasm o f prostate (HCC) (Primary Dx) Start: 10-29-2024 End: 10-29-2024 ambulatory Severo DENT Facility:[facility] Start: 10-26-2024 End: 10-26-2024 Work Umu Fidencio SAF[employer] Hematology/Oncology Start: 10-24-2024 End: 10-24-2024 ambulatory Severo DENT Facility:[facility] Start: 10-23-2024 End: 10-23-2024 ambulatory Severo DENT Facility:[facility] Start: 10-22-2024 End: 10-22-2024 Patient encounter procedure Severo Dent MD Work Phone: Radiation Oncology Comment on above: Malignant neoplasm o f prostate (HCC) (Primary Dx) Start: 10-22-2024 End: 10-22-2024 ambulatory Severo DENT Facility:[facility] Start: 10-21-2024 End: 10-21-2024 ambulatory Severo DENT Facility:[facility] Start: 10-19-2024 End: 10-19-2024 ambulatory Severo DENT Facility:[facility] Start: 10-18-2024 End: 10-18-2024 ambulatory Severo DENT Facility:[facility] Start: 10-17-2024 End: 10-17-2024 ambulatory Severo DENT Facility:[facility] Start: 10-16-2024 End: 10-16-2024 Bamboo flowsheet Kathie Sánchez CHECK PILOT Work Phone: [facility] Start: 10-16-2024 End: 10-16-2024 Bamboo flowsheet Kathie Sánchez CHECK PILOT Work Phone: [facility] Start: 10-16-2024 End: 10-16-2024 Office outpatient visit 15 minutes Kathie Sánchez CHECK PILOT Work Phone: [facility] Comment on above: DDD (degenerative di sc disease), cervical (Primary Dx); Atrial fibrillation (CMS/HCC); Gastro-esophageal reflux disease without esophagitis; Prostate cancer (CMS/HCC) Start: 10-16-2024 End: 10-16-2024 ambulatory KAHTIE SÁNCHEZ Not Available Start: 10-15-2024 End: 10-15-2024 Patient encounter procedure Severo Dent MD Work Phone: Radiation Oncology Comment on above: Malignant neoplasm o f prostate (HCC) (Primary Dx) Start: 10-15-2024 End: 10-15-2024 ambulatory Severo GOPAL DENT Facility:[facility] Start: 10-12-2024 End: 10-12-2024 ambulatory Severo DENT Facility:[facility] Start: 10-11-2024 End: 10-11-2024 Clinisync Result Encounter Generic External Data Provider [facility] External Department Unsolicited Start: 10-11-2024 End: 10-11-2024 Clinisync Result Encounter Generic External Data Provider [facility] External Department Unsolicited Start: 10-11-2024 End: 10-11-2024 Patient encounter procedure [facility] Work Phone: Radiation Oncology Comment on above: Malignant neoplasm o f prostate (HCC) Start: 10-11-2024 End: 10-11-2024 ambulatory Severo GOPAL DENT Facility:[facility] Start: 10-10-2024 End: 10-10-2024 ambulatory Severo DENT Facility:[facility] Start: 10-09-2024 End: 10-09-2024 ambulatory KATHIE SÁNCHEZ Facility:[facility] Start: 10-08-2024 End: 10-08-2024 Patient encounter procedure Severo Dent MD Work Phone: Radiation Oncology Comment on above: Malignant neoplasm o f prostate (HCC) (Primary Dx) Start: 10-08-2024 End: 10-08-2024 ambulatory Severo DENT Facility:[facility] Start: 10-05-2024 End: 10-05-2024 ambulatory Severo DENT Facility:[facility] Start: 10-04-2024 End: 10-05-2024 ambulatory KATHIE SÁNCHEZ Facility:[facility] Start: 10-04-2024 End: 10-04-2024 Patient encounter procedure [facility] [place] Work Phone: Radiation Oncology Comment on above: Malignant neoplasm o f prostate (HCC) Start: 10-04-2024 End: 10-04-2024 Clinisync Result Encounter Generic External Data Provider [facility] External Department Unsolicited Start: 10-04-2024 End: 10-04-2024 Clinisync Result Encounter Generic External Data Provider [facility] External Department Unsolicited Start: 10-03-2024 End: 10-03-2024 ambulatory Severo DENT Facility:[facility] Start: 10-02-2024 End: 10-02-2024 ambulatory Severo DENT Facility:[facility] Start: 10-01-2024 End: 10-01-2024 Patient encounter procedure Severo Dent MD Work Phone: Radiation Oncology Comment on above: Malignant neoplasm o f prostate (HCC) (Primary Dx) Start: 10-01-2024 End: 10-01-2024 ambulatory Severo DENT Facility:[facility] Start: 09-28-2024 End: 09-28-2024 ambulatory Severo DENT Facility:[facility] Start: 09-27-2024 End: 09-27-2024 ambulatory Severo DENT Facility:[facility] Start: 09-26-2024 End: 09-26-2024 ambulatory Severo DENT Facility:[facility] Start: 09-25-2024 End: 09-25-2024 Social Work [facility] Hematology/Oncology Comment on above: Malignant neoplasm o f prostate (HCC) (Primary Dx) Start: 09-24-2024 End: 09-24-2024 Telephone encounter Severo Dent MD Work Phone: Radiation Oncology Comment on above: Orders (CBC ) Start: 09-18-2024 End: 09-18-2024 Social Work [facility] Hematology/Oncology Start: 09-17-2024 End: 09-27-2024 Radiation Oncology Note Severo Dent MD Work Phone: Radiation Oncology Comment on above: Simulation Note Treatment Planning Start: 09-17-2024 End: 09-18-2024 ambulatory Severo DENT Facility:[facility] Start: 09-17-2024 End: 09-27-2024 Patient encounter procedure Severo Dent MD Work Phone: Radiation Oncology Comment on above: Malignant neoplasm o f prostate (HCC) (Primary Dx) Start: 09-14-2024 End: 09-14-2024 Telephone encounter Severo Gopal Dent MD Work Phone: Radiation Oncology Comment on above: Financial Questions Start: 09-13-2024 End: 09-13-2024 Bamboo flowsheet Kathie Sánchez CHECK PILOT Work Phone: [facility] Start: 09-13-2024 End: 09-13-2024 Bamboo flowsheet Kathie Sánchez CHECK PILOT Work Phone: [facility] Start: 09-13-2024 End: 09-13-2024 Office outpatient visit 15 minutes Kathie Sánchez CHECK PILOT Work Phone: [facility] Comment on above: DDD (degenerative di sc disease), cervical (Primary Dx); Other thrombophilia (CMS/HCC); Chronic respiratory failure with hypoxia (CMS/HCC); Abdominal aortic aneurysm, without rupture, unspecified (CMS/HCC); Thoracic aortic aneurysm, without rupture, unspecified (CMS/HCC); Atherosclerosis of aorta (CMS/HCC); Other chronic pain Start: 09-13-2024 End: 09-13-2024 ambulatory KATHIE SÁNCHEZ Not Available Start: 09-11-2024 End: 09-11-2024 ambulatory Dayanna Call LPN Radiation Oncology Comment on above: Patient Education Start: 09-11-2024 End: 09-11-2024 Patient encounter procedure Severo Gopal Dent MD Work Phone: Radiation Oncology Comment on above: Malignant neoplasm o f prostate (HCC) (Primary Dx) Start: 09-07-2024 End: 09-07-2024 Clinisync Result Encounter Generic External Data Provider [facility] External Department Unsolicited Start: 09-07-2024 End: 09-07-2024 Clinisync Result Encounter Generic External Data Provider [facility] External Department Unsolicited Start: 07-12-2024 End: 07-12-2024 ambulatory Severo DENT Facility:[facility] Start: 07-12-2024 End: 07-12-2024 Patient encounter procedure G Gopal Engeler MD Work Phone: Radiation Oncology Comment on above: Malignant neoplasm o f prostate (HCC) (Primary Dx) Start: 06-21-2024 End: 06-21-2024 ambulatory Severo DENT Facility:[facility] Start: 06-21-2024 End: 06-21-2024 Patient encounter procedure Severo Dent MD Work Phone: Radiation Oncology Comment on above: Malignant neoplasm o f prostate (HCC) (Primary Dx) Start: 06-01-2024 End: 06-01-2024 ambulatory Amandeep Crisostomo MD Work Phone: Urology Start: 06-01-2024 End: 06-01-2024 Patient encounter procedure Amandeep Crisostomo MD Work Phone: Urology Comment on above: Prostate cancer (HCC ) (Primary Dx) Start: 05-21-2024 End: 05-21-2024 ambulatory Rufina VORA Facility:[facility] Start: 05-21-2024 End: 05-21-2024 Patient encounter procedure Rufina VORA [facility] Start: 05-01-2024 End: 05-01-2024 ambulatory Rufina VORA Facility:[facility] Start: 05-01-2024 End: 05-01-2024 Patient encounter procedure Rufina VORA [facility] Start: 02-28-2024 Patient encounter procedure Generic Provider [facility] Start: 02-28-2024 End: 02-28-2024 ambulatory KATHIE SÁNCHEZ Not Available Start: 01-05-2024 Clinisync Result Encounter Generic External Data Provider [facility] External Department Unsolicited Start: 01-05-2024 Clinisync Result Encounter Generic External Data Provider [facility] External Department Unsolicited Start: 01-02-2024 End: 01-02-2024 ambulatory Rufina VORA Facility:[facility] Start: 07-22-2023 ambulatory [facility]ufina VOR[facility] Start: 06-06-2023 End: 06-06-2023 ambulatory Rufina VORA Facility:[facility] Start: 06-06-2023 End: 06-06-2023 Patient encounter procedure Rufina VORA [facility] Start: 05-17-2023 End: 05-17-2023 Patient encounter procedure Rufina VORA [facility] Start: 04-12-2023 End: 04-13-2023 ambulatory TANK BUILDER SUPERVISOR KATHIE AICSUKHWINDER Facility:[facility] Start: 04-08-2023 End: 04-09-2023 ambulatory TANK BUILDER SUPERVISOR KATHIE AICSUKHWINDER Facility:[facility] Start: 02-07-2023 End: 02-07-2023 Patient encounter procedure Rufina VORA [facility] Start: 01-04-2023 End: 01-05-2023 ambulatory TANK BUILDER SUPERVISOR KATHIE PRINCESS Facility:[facility] Start: 10-07-2022 End: 10-08-2022 ambulatory TANK BUILDER SUPERVISOR KATHIE AICKashmirHOLZ Facility:[facility] Start: 08-18-2022 End: 08-19-2022 ambulatory ROBERTO JOSELYN . Facility:[facility] Start: 08-12-2022 End: 08-12-[address] ESLA RAE . Facility:[facility] Start: 07-20-2022 End: 08-11-2022 Pre-admission assessment Rufina VORA [facility] Start: 05-17-2022 End: 06-16-2022 Pre-admission assessment Rufina VORA [facility] Start: 05-17-2022 End: 05-17-2022 Patient encounter procedure Rufina VORA [facility] Start: 05-03-2022 End: 05-03-2022 ambulatory ROBERTO ALVES . Facility: Start: 03-24-2021 End: 03-24-2021 Departed Referred Bryan Quick Work Phone: [facility] [place] Procedures Date Procedure Procedure Detail Performing Clinician Start: 10-11-2024 [facility] CBC W AUTO DIFF BLD Generic External Data Provider Start: 10-11-2024 Blood count complete auto&auto difrntl wbc G Gopal Dent MD Work Phone: Start: 10-04-2024 [facility] CBC W AUTO DIFF BLD Generic External Data Provider Start: 10-04-2024 Blood count complete auto&auto difrntl wbc G Gopal Dent MD Work Phone: Start: 09-07-2024 PSA screening [facility] Provi kd Start: 09-07-2024 MHPT PSA, DIAGNOSTIC Ge neric External Data Provider Start: 06-01-2024 Urnls dip stick/tabl et rgnt auto w/o microscopy Bulk Order Provider Start: 05-01-2024 Transrectal biopsy o f prostate using ultrasound guidance Rufina VORA Start: 01-05-2024 BLOOD CULTURE 2 Generic External Data Provider Start: 01-05-2024 BLOOD CULTURE 1 Generic External Data Provider Start: 04-08-2023 PSA screening PROMISE SÁNCHEZ Comment on above: Performed By: #### [facility] #### [facility] [address] [place] [address] Dr. James Crowley Start: 10-19-2022 Colonoscopy Generic Pr ovider Colonoscopy Rufina VORA Procedure on foot Rufina LEON Repair of hip Rufina VORA Comment on above: Both hips Both hips Transrectal needle b iopsy of prostate Rufina VORA Plan of Treatment Date Care Activity Detail Author Start: 10-19-2032 Screening for malign ant neoplasm of colon [facility] Start: 03-11-2031 Urine microalbumin profile DTaP,Tdap,Td Vaccine (2 - Td or Tdap) [facility] Start: 09-07-2029 Prostate specific antigen measurement Prostate Cancer Screening Discussion [facility] Start: 02-27-2025 Medicare Annual Well ness (AWV) Medicare Annual Wellness (AWV) [facility] Start: 02-27-2025 Pneumococcal Vaccine : 65+ Years (1 of 2 - PCV) Pneumococcal Vaccine: 65+ Years (1 of 2 - PCV) [facility] Comment on above: Postponed from 07/21 (Patient Refused) Start: 12-17-2024 End: 12-17-2024 Patient encounter procedure 12/17/2024 9:40 AM EST Office Visit [facility] [address] [place] [address] Kathie Sánchez NP [address] [place] [address] [facility] Start: 12-12-2024 End: 12-12-2024 Patient encounter procedure 12/12/2024 10:00 AM EST Office Visit Radiation Oncology [address] [place] [address] [place] [address] Severo Dent MD [address] [place] [address] 3-4 week follow up Radiation Oncology Comment on above: 3-4 week follow up Start: 11-30-2024 End: 11-30-2024 Patient encounter procedure Radiation Oncology Comment on above: 3-4 week follow up Start: 11-27-2024 End: 02-26-2025 Prostate specific Ag [Mass/volume] in Serum or Plasma PROSTATE-SPECIFIC ANTIGEN DIAGNOSTIC Lab Routine Malignant neoplasm of prostate (HCC) Expected: 11/27/2024, Expires: 02/26/2025 [facility] Work Phone: Comment on above: Expected: 11/27/2024 , Expires: 02/26/2025 Start: 11-23-2024 End: 11-23-2024 Patient encounter procedure 11/23/2024 10:00 AM EST Office Visit [facility] [address] [place] [address] labs [facility] Comment on above: labs Start: 11-02-2024 End: 11-02-2024 Patient encounter procedure 11/02/2024 10:15 AM EST Appointment Radiation Oncology [address] [place] [address] Prostate Radiation Oncology Comment on above: Prostate Start: 11-01-2024 End: 11-01-2024 Patient encounter procedure Radiation Oncology Comment on above: Prostate FINAL OTV Fx Start: 10-31-2024 End: 10-31-2024 Patient encounter procedure 10/31/2024 10:15 AM EST Appointment Radiation Oncology [address] [place] [address] Prostate Radiation Oncology Comment on above: Prostate Start: 10-30-2024 End: 10-30-2024 Patient encounter procedure 10/30/2024 10:15 AM EST Appointment Radiation Oncology [address] [place] [address] Prostate Radiation Oncology Comment on above: Prostate Start: 10-29-2024 End: 10-29-2024 Patient encounter procedure Radiation Oncology Comment on above: Prostate Location: [facility] Start: 10-24-2024 End: 10-24-2024 Patient encounter procedure 10/24/2024 10:15 AM EST Appointment Radiation Oncology [address] [place] [address] Prostate Radiation Oncology Comment on above: Prostate Start: 10-23-2024 End: 10-23-2024 Patient encounter procedure 10/23/2024 10:15 AM EST Appointment Radiation Oncology [address] [place] [address] Prostate Radiation Oncology Comment on above: Prostate Start: 10-22-2024 End: 10-22-2024 Patient encounter procedure Radiation Oncology Comment on above: Prostate Location: [facility] Start: 10-21-2024 End: 10-21-2024 Patient encounter procedure 10/21/2024 10:15 AM EST Appointment Radiation Oncology [address] [facility] [place] [address] Prostate Radiation Oncology Comment on above: Prostate Start: 10-19-2024 End: 10-19-2024 Patient encounter procedure 10/19/2024 10:15 AM EST Appointment Radiation Oncology [address] [facility] [address] [place] [address] Prostate Radiation Oncology Comment on above: Prostate Start: 10-18-2024 End: 10-18-2024 Patient encounter procedure 10/18/2024 10:15 AM EST Appointment Radiation Oncology [address] [facility] [facility] [place] [address] Prostate Radiation Oncology Comment on above: Prostate Start: 10-17-2024 End: 10-17-2024 Patient encounter procedure 10/17/2024 10:15 AM EST Appointment Radiation Oncology [address] [facility] [facility] [place] [address] Prostate Radiation Oncology Comment on above: Prostate Start: 10-16-2024 End: 10-16-2024 Patient encounter procedure [facility] Comment on above: Prostate DDD (degenerative di sc disease), cervical (Primary Dx); Atrial fibrillation (CMS/HCC); Gastro-esophageal reflux disease without esophagitis Start: 10-15-2024 End: 10-15-2024 Patient encounter procedure Radiation Oncology Comment on above: Prostate Location: [facility] Start: 10-12-2024 End: 10-12-2024 Patient encounter procedure 10/12/2024 10:15 AM EST Appointment Radiation Oncology [address] [place] [address] Prostate Radiation Oncology Comment on above: Prostate Start: 10-11-2024 End: 01-10-2025 CBC W Auto Differential panel - Blood COMPLETE BLOOD COUNT AND DIFFERENTIAL Lab Routine Malignant neoplasm of prostate (HCC) Expected: 10/11/2024, Expires: 01/10/2025 [facility] Work Phone: Comment on above: Expected: 10/11/2024 , Expires: 01/10/2025 Start: 10-11-2024 End: 10-11-2024 Patient encounter procedure 10/11/2024 10:30 AM EST Appointment Radiation Oncology [address] [place] [address] Prostate Radiation Oncology Comment on above: Prostate Start: 10-10-2024 End: 10-10-2024 Patient encounter procedure 10/10/2024 10:30 AM EST Appointment Radiation Oncology [address] [place] [address] Prostate Radiation Oncology Comment on above: Prostate Start: 10-09-2024 End: 10-09-2024 Patient encounter procedure 10/09/2024 10:30 AM EST Appointment Radiation Oncology [address] [place] [address] Prostate Radiation Oncology Comment on above: Prostate Start: 10-08-2024 End: 10-08-2024 Patient encounter procedure Radiation Oncology Comment on above: Prostate Location: [facility] Start: 10-05-2024 End: 10-05-2024 Patient encounter procedure 10/05/2024 10:15 AM EST Appointment Radiation Oncology [address] [place] [address] Prostate Radiation Oncology Comment on above: Prostate Start: 10-04-2024 End: 10-04-2024 Patient encounter procedure 10/04/2024 2:15 PM EST Appointment Radiation Oncology [address] [place] [address] Prostate - appt in [place] before Radiation Oncology Comment on above: Prostate - appt in [place] before Start: 10-04-2024 End: 01-03-2025 CBC W Auto Differential panel - Blood COMPLETE BLOOD COUNT AND DIFFERENTIAL Lab Routine Malignant neoplasm of prostate (HCC) Expected: 10/04/2024, Expires: 01/03/2025 [facility] Work Phone: Comment on above: Expected: 10/04/2024 , Expires: 01/03/2025 Start: 10-04-2024 End: 10-04-2024 Patient encounter procedure 10/04/2024 10:15 AM EST Appointment Radiation Oncology [address] [place] [address] Prostate Radiation Oncology Comment on above: Prostate Start: 10-03-2024 End: 10-03-2024 Patient encounter procedure 10/03/2024 10:15 AM EST Appointment Radiation Oncology [address] [place] [address] Prostate Radiation Oncology Comment on above: Prostate Start: 10-02-2024 End: 10-02-2024 Patient encounter procedure 10/02/2024 10:15 AM EST Appointment Radiation Oncology [address] [place] [address] Prostate Radiation Oncology Comment on above: Prostate Start: 10-01-2024 End: 10-01-2024 Patient encounter procedure Radiation Oncology Comment on above: Prostate Location: [facility] Start: 09-28-2024 End: 09-28-2024 Patient encounter procedure 09/28/2024 2:45 PM EDT Appointment Radiation Oncology [address] [place] [address] Prostate Radiation Oncology Comment on above: Prostate Start: 09-27-2024 End: 09-27-2024 Patient encounter procedure 09/27/2024 2:45 PM EDT Appointment Radiation Oncology [address] [place] [address] Prostate Radiation Oncology Comment on above: Prostate Start: 09-26-2024 End: 09-26-2024 Patient encounter procedure 09/26/2024 11:30 AM EDT Appointment Radiation Oncology [address] [place] [address] Prostate Radiation Oncology Comment on above: Prostate Start: 09-25-2024 End: 09-25-2024 Patient encounter procedure Radiation Oncology Comment on above: NEW START PROSTATE Prostate - would lik e 10:3010:45 Start: 09-21-2024 End: 12-21-2024 Prostate specific Ag [Mass/volume] in Serum or Plasma PROSTATE-SPECIFIC ANTIGEN DIAGNOSTIC Lab Routine Malignant neoplasm of prostate (HCC) Expected: 09/21/2024, Expires: 12/21/2024 [facility] Work Phone: Comment on above: Expected: 09/21/2024 , Expires: 12/21/2024 Start: 09-18-2024 End: 09-18-2024 Patient encounter procedure 09/18/2024 9:00 AM EDT Office [place] [address] Financial Questions for upcoming treatments [facility] Screening Comment on above: Financial Questions for upcoming treatments Start: 09-17-2024 End: 09-17-2024 Patient encounter procedure Radiation Oncology Comment on above: Pre Sim - treating P norbert - SHAYY Sim - treating Pelvi s - SHAYY Start: 09-13-2024 End: 09-13-2025 XR Cervical spine 2 or 3 Views XR cervical spine 2 or 3 views Imaging Routine DDD (degenerative disc disease), cervical Expected: 09/13/2024 (Approximate), Expires: 09/13/2025 [facility] Work Phone: Comment on above: Expected: 09/13/2024 (Approximate), Expires: 09/13/2025 Start: 09-13-2024 End: 09-13-2024 Patient encounter procedure [facility] Comment on above: Other thrombophilia (CMS/HCC); Chronic respiratory failure with hypoxia (CMS/HCC); Abdominal aortic aneurysm, without rupture, unspecified (CMS/HCC); Thoracic aortic aneurysm, without rupture, unspecified (CMS/HCC); Atherosclerosis of aorta (CMS/HCC) Start: 09-11-2024 End: 09-11-2024 Patient encounter procedure 09/11/2024 1:45 PM EDT Office Visit Radiation Oncology [address] [facility] [place] [address] Severo Dent MD [address] [place] [address] [place] [address] 2 month rv Radiation Oncology Comment on above: 2 month rv Start: 07-29-2024 Covid-19 Vaccine ( season) Covid-19 Vaccine ( season) [facility] Start: 07-29-2024 Influenza vaccination Influenza Vacc ine (#1) [facility] Start: 07-12-2024 End: 07-12-2024 Patient encounter procedure 07/12/2024 1:15 PM EDT Office Visit Radiation Oncology [address] [facility] [facility] [place] [address] Severo Dent MD [address] [place] [address] [place] [address] 3 week rv-Decipher results Radiation Oncology Comment on above: 3 week rv-Decipher r esults Start: 06-01-2024 End: 08-31-2024 Prostate specific Ag [Mass/volume] in Serum or Plasma PROSTATE-SPECIFIC ANTIGEN DIAGNOSTIC Lab Routine Prostate cancer (HCC) Expected: 06/01/2024, Expires: 08/31/2024 [facility] Work Phone: Comment on above: Expected: 06/01/2024 , Expires: 08/31/2024 Start: 11-28-2023 Advance Directive Discussion Advance Directive Discussion [facility] Start: 11-28-2023 Behavioral Health Screening Behavioral Health Screening [facility] Start: 07-29-2023 Covid-19 Vaccine () Covid-19 Vaccine () [facility] Start: 07-29-2023 Influenza vaccination Influenza Vacc ine (#1) [facility] Start: 2023 Pneumococcal Vaccine : 65+ Years (1 - PCV) Pneumococcal Vaccine: 65+ Years (1 - PCV) [facility] Start: 2018 RSV Vaccine (1 - 1-d ose 60+ series) RSV Vaccine (1 - 1-dose 60+ series) [facility] Start: 2013 Prostate specific antigen measurement Prostate Cancer Screening Discussion [facility] Start: 2008 Screening for malign ant neoplasm of lung Lung Cancer Screening [facility] Start: 2003 Diabetes Screening Diabetes Screenin g [facility] Start: 2003 Screening for malign ant neoplasm of colon [facility] Start: 1993 Lipid panel Lipid Screening [facility] Start: 1988 Zoledronic acid therapy Alpha- 1 Antitrypsin Deficiency Screening [facility] Start: 1976 Annual PCP Team Credit Associate sully Disease Visit Annual PCP Team Chronic Disease Visit [facility] Start: 1976 Anxiety Screening Anxiety Screening [facility] Start: 1976 Depression Screening Depression Scre ening [facility] Start: 1976 Hepatitis C screening Hepatitis C Sc lissett [facility] Start: 1976 HIV screening HIV Screening [facility] Start: 1976 Spirometry Spirometry [facility] Start: 1964 Pneumococcal Vaccine : 65+ (1 of 2 - PCV) Pneumococcal Vaccine: 65+ (1 of 2 - PCV) [facility] Start: 1958 Abdominal aortic aneurysm screening Abdominal Aortic Aneurysm Screening [facility] Start: 1958 Medicare Annual Well ness (AWV) Medicare Annual Wellness (AWV) [facility] Start: 1958 Screening for malign ant neoplasm of colon [facility] BLOOD CULTURE 1 BLOOD CULTURE 1 Lab Routine 01/05/2024 4:58 PM EST [facility] BLOOD CULTURE 2 BLOOD CULTURE 2 Lab Routine 01/05/2024 5:04 PM EST [facility] CT Guidance for radiation treatment of Unspecified body region CT SIM PLANNING RADIATION ONCOLOGY Radiology Routine Malignant neoplasm of prostate (HCC) Ordered: 09/17/2024 [facility] Work Phone: Comment on above: Ordered: 09/17/2024 End: 06-01-2025 Prostate specific Ag [Mass/volume] in Serum or Plasma PROSTATE-SPECIFIC ANTIGEN DIAGNOSTIC Lab Routine Prostate cancer (HCC) Every 6 months for 3 Occurrences starting 06/01/2024 until 06/01/2025 [facility] Comment on above: Every 6 months for 3 Occurrences starting 06/01/2024 until 06/01/2025 Immunizations Immunization Date Immunization Notes Care Provider Fa [facility] 08-17-2024 Pneumococcal Conjuga te PCV 20 Kathie Sánchez NP Work Phone: [facility] 08-17-2024 RSV, recombinant, protein subunit RSVpreF, adjuvant reconstitu, 120mcg/0.5mL, PF (Arexvy) Kathie Sánchez NP Work Phone: [facility] 09-17-2023 zoster vaccine recombinant Rufina VORA [facility] 07-04-2023 zoster vaccine recombinant Rufina VORA [facility] 09-25-2022 SARS-CoV-2 (COVID-19 ) [id number] Rufina VORA [facility] 05-26-2021 SARS-CoV-2 (COVID-19 ) mRNA BNT-162b2 vax Rufina VORA [facility] 05-05-2021 SARS-CoV-2 (COVID-19 ) mRNA BNT-162b2 vax Rufina VORA [facility] 03-11-2021 tetanus toxoid, redu liyah diphtheria toxoid, and acellular pertussis vaccine, adsorbed Rufina VORA [facility] Payers Date Payer Category Payer Unknown [facility] MEDICARE ADVANTAGE HMO [id number] 2023-Present [phone] [address] [place] [id number] [id number] 2022 Medicare FOR[facility]LY [facility] MEDICARE ADVANTAGE FORMERLY [facility] MEDICARE ADVANTAGE [id number] 2022-Present [address] [place] [address] [id number] 2022 Medicare (Managed Care) [facility] Member Subscriber Plan / Payer (Effective 2022-Present) Name: Mateo Stearns Relation to Subscriber: Self Name: Mateo Stearns Payer ID: Not on file Group ID: [id number] Type: Not on file Address: [address] [id number] 2020 Medicaid [id number] 1959 Medicaid [id number] 1959 Medicare [id number] 1959 Unknown [id number] 1958 Unknown [id number] 2.16.840.1.415261.3.579.2. 593 1958 Unknown [id number] 2.16.840.1.726193.3.579.2. 593 1958 Unknown [id number] 2.16.840.1.103419.3.579.2. 593 1958 Unknown [id number] 2.16.840.1.144466.3.579.2. 593 1958 Unknown [id number] 2.16.840.1.257928.3.579.2. 593 1958 Unknown [id number] 2.16.840.1.711942.3.579.2. 593 1958 Unknown [id number] 2.16.840.1.005436.3.579.2. 593 1958 Unknown [id number] 2.16.840.1.628425.3.579.2. 593 1958 Unknown [id number] 2.16.840.1.402408.3.579.2. 727 1958 Unknown [id number] 2.16.840.1.225701.3.579.2. 727 1958 Unknown [id number] 2.16.840.1.259313.3.579.2. 727 1958 Unknown [id number] 2.16.840.1.038158.3.579.2. 727 1958 Unknown [id number] 2.16.840.1.972965.3.579.2. 727 1958 Unknown [id number] 2.16.840.1.661082.3.579.2. 1259 1958 Unknown [id number] 2.16.840.1.939706.3.579.2. 1259 1958 Unknown [id number] 2.16.840.1.433032.3.579.2. 1259 Self-pay Self Pay [id number] Social History Date Type Detail [facility] Start: 1960 Sex Assigned At Male [facility] Start: 05-17-2022 End: 09-11-2024 Tobacco smoking status Ex-smoker (finding) [facility] Start: 11-13-2023 End: 06-21-2024 Sex Assigned At Male [facility] Tobacco smoking status Never [facility] Start: 11-28-1975 End: 11-28-2016 History of tobacco use Current smoker [facility] Start: 11-28-1975 End: 11-28-2016 History of tobacco use Cigarette Smoker [facility] Start: 11-13-2023 End: 06-21-2024 Cigarettes smoked current (pack per day) - Reported 2 [facility] Start: 11-13-2023 End: 11-02-2024 Alcohol intake Ex-drinker (finding) [facility] Start: 1960 Sex Assigned At Not on file N [facility] Start: 05-16-2013 [facility] Start: 05-16-2013 End: 09-11-2024 Tobacco use and exposure Smokeless tobacco non-user [facility] Start: 05-16-2013 Alcohol intake Current drinke r of alcohol (finding) [facility] Start: 06-21-2024 Alcohol Comment quit 2016 [facility] Within the last year , have you been afraid of your partner or ex-partner? No [facility] Do you belong to any clubs or organizations such as religion groups, unions, fraternal or athletic groups, or [...] Only a little [facility] (I/We) worried wheth er (my/our) food would run out before (I/we) got money to buy more. Never true [facility] Goals Date Patient Goal Desired Activity /State Functional Status Date Assessment Result Facility 05-21-2024 Functional Status N/A [facility] 06-06-2023 Functional Status N/A [facility] 05-17-2023 Functional Status N/A [facility] 02-07-2023 Functional Status N/A [facility] 08-05-2022 N/A [facility] 06-11-2022 Functional Status N/A [facility] 05-17-2022 Functional Status N/A [facility] Clinical Notes 05-17-2022 to 11-26-2024 Umu Nicolas LSW - 11/26/2024 1:08 PM Severo Melo MD - 11/02/2024 10:42 AM Severo Melo MD - 11/02/2024 12:00 AM Severo Melo MD - 10/29/2024 10:24 AM EST Note Date & Type Note Facility 11-26-2024 Note HNO ID: [id number] Author: UMU NICOLAS LSW Service: ? Author Type: Flight Surveyor Type: Progress Notes Filed: 11/26/2024 13:09 Note Text: SOCIAL WORK FOLLOW UP NOTE[facility] Date of service:11/26/24 TOPICS ADDRESSED: community resources PLAN: Continue follow up as needed Assigned SW listed in Care Team tab: Yes SW completed and faxed October 2024 mileage reimbursement log to [facility]. SUSANNA Sotomayor [facility] 11-26-2024 History of Present illness Narrative SOCIAL WORK FOLLOW UP NOTE: [facility] Date of service:11/26/24 TOPICS ADDRESSED: community resources PLAN: Continue follow up as needed Assigned SW listed in Care Team tab: Yes SW completed and faxed October 2024 mileage reimbursement log to [facility]. SUSANNA Sotomayor documented in this encounter [facility] 11-02-2024 Note HNO ID: [id number] Author: Severo DENT MD Service: ? Author Type: Physician Type: Progress Notes Filed: 11/09/2024 11:44 Note Text: Radiation Oncology - On Treatment Review (OTR) Note PATIENT NAME: Mateo Stearns PATIENT DIAGNOSIS: Prostate adenocarcinoma, initial PSA 4.46, biopsy [place] score 3 + 3 = 6 (grade group 1), clinical stage T1c, N0, M0, stage I [cT1a-c/T2a, N0, M0, PSA <10, GG 1] (AJCC 8th ed.), s/p TRUS Random biopsy. COURSE: definitive AREA TREATED: Pelvis/prostate CURRENT DOSE: 7000 cGy in 28fx PLANNED DOSE: 7000 cGy in 28 fx SUBJECTIVE: No significant changes. EXAM: 11/02/24 1033 BP: 118/82 Pulse: 100 Resp: 18 Temp: 36.9 ?C (98.4 ?F) SpO2: 97% KPS: 100 General Appearance: Alert and oriented. No acute distress. Radiation dermatitis: No IMAGING/LAB RESULTS: Hemoglobin (g/dL) Date Value 10/11/2024 14.8 Hematocrit (%) Date Value 10/11/2024 43.8 WBC (k/uL) Date Value 10/11/2024 14.12 Platelet Count (k/uL) Date Value 10/11/2024 317 Treatment chart checked: Yes Patient treatment site reviewed and verified:Yes Port films reviewed and current:Yes Medications started: None ASSESSMENT/PLAN: Patient finishes today. He has done well. Follow-up as scheduled. Severo Dent MD [facility] 11-02-2024 History of Present illness Narrative Radiation Oncology - On Treatment Review (OTR) Note PATIENT NAME: Mateo Stearns PATIENT DIAGNOSIS: Prostate adenocarcinoma, initial PSA 4.46, biopsy Brenden score 3 + 3 = 6 (grade group 1), clinical stage T1c, N0, M0, stage I [cT1a-c/T2a, N0, M0, PSA <10, GG 1] (AJCC 8th ed.), s/p TRUS Random biopsy. COURSE: definitive AREA TREATED: Pelvis/prostate CURRENT DOSE: 7000 cGy in 28fx PLANNED DOSE: 7000 cGy in 28 fx SUBJECTIVE: No significant changes. EXAM: 11/02/24 1033 BP: 118/82 Pulse: 100 Resp: 18 Temp: 36.9 C (98.4 F) SpO2: 97% KPS: 100 General Appearance: Alert and oriented. No acute distress. Radiation dermatitis: No IMAGING/LAB RESULTS: Hemoglobin (g/dL) Date Value 10/11/2024 14.8 Hematocrit (%) Date Value 10/11/2024 43.8 WBC (k/uL) Date Value 10/11/2024 14.12 Platelet Count (k/uL) Date Value 10/11/2024 317 Treatment chart checked: Yes Patient treatment site reviewed and verified:Yes Port films reviewed and current:Yes Medications started: None ASSESSMENT/PLAN: Patient finishes today. He has done well. Follow-up as scheduled. Severo Dent MD documented in this encounter [facility] 11-02-2024 History of Present illness Narrative [facility] Radiation Oncology Department RADIATION ONCOLOGY - COMPLETION NOTE PATIENT: MATEO STEARNS: 1960 DATES OF TREATMENT: 09/25/24 - 11/02/24 DIAGNOSIS: Prostate adenocarcinoma, initial PSA 4.46, biopsy [place] score 3 + 3 = 6 (grade group 1), clinical stage T1c, N0, M0, stage I [cT1a-c/T2a, N0, M0, PSA <10, GG 1] (AJCC 8th ed.), s/p TRUS Random biopsy. AREA TREATED: PROSTATEPELVIS DELIVERED DOSE: Area: PROSTATEPELVIS 7,000 cGy in 28 fractions, 2 ARCS, VMAT, 10MV WITH DAILY CBCT TOTAL: 7,000 cGy in 28 fractions ELAPSED TIME: 38 days. CLINICAL SUMMARY: The patient tolerated radiation with overall good tolerance. The patient was able to complete treatment as intended without break interruption or modification of prescription plan. The disease response will be assessed in clinic. The patient will be seen again in 4 weeks for post radiation follow-up. Staff Physician Gopal Dent M.D. / KAYA 42:37 PM Electronically Signed cc: Kathie Sánchez, PROMISE Vora documented in this encounter [facility] 11-02-2024 Note HNO ID: [id number] Author: Severo DENT MD Service: ? Author Type: Physician Type: Progress Notes Filed: 11/08/2024 14:37 Note Text: [facility] Radiation Oncology Department RADIATION ONCOLOGY - COMPLETION NOTE PATIENT: MATEO STEARNS: 1960 DATES OF TREATMENT: 09/25/24 - 11/02/24 DIAGNOSIS: Prostate adenocarcinoma, initial PSA 4.46, biopsy Brenden score 3 + 3 = 6 (grade group 1), clinical stage T1c, N0, M0, stage I [cT1a-c/T2a, N0, M0, PSA <10, GG 1] (AJCC 8th ed.), s/p TRUS Random biopsy. AREA TREATED: PROSTATEPELVIS DELIVERED DOSE: Area: PROSTATEPELVIS 7,000 cGy in 28 fractions, 2 ARCS, VMAT, 10MV WITH DAILY CBCT TOTAL: 7,000 cGy in 28 fractions ELAPSED TIME: 38 days. CLINICAL SUMMARY: The patient tolerated radiation with overall good tolerance. The patient was able to complete treatment as intended without break interruption or modification of prescription plan. The disease response will be assessed in clinic. The patient will be seen again in 4 weeks for post radiation follow-up. Staff Physician Gopal Dent M.D. / NRS :37 PM Electronically Signed cc: Kathie Sánchez, PROMISE Vora [facility] 10-29-2024 Note HNO ID: [id number] Author: Severo DENT MD Service: ? Author Type: Physician Type: Progress Notes Filed: 10/29/2024 10:54 Note Text: Radiation Oncology - On Treatment Review (OTR) Note PATIENT NAME: Mateo Stearns PATIENT DIAGNOSIS: Prostate adenocarcinoma, initial PSA 4.46, biopsy [place] score 3 + 3 = 6 (grade group 1), clinical stage T1c, N0, M0, stage I [cT1a-c/T2a, N0, M0, PSA <10, GG 1] (AJCC 8th ed.), s/p TRUS Random biopsy. COURSE: definitive AREA TREATED: Pelvis/prostate CURRENT DOSE: 6000 cGy in 24 fx PLANNED DOSE: 7000 cGy in 28 fx SUBJECTIVE: No significant changes. Mild diarrhea. Mild increased urinary frequency. EXAM: 10/29/24 1028 BP: 126/84 Pulse: 81 Resp: 18 Temp: 36.6 ?C (97.9 ?F) SpO2: 95% Weight: 67.7 kg (149 lb 4 oz) KPS: 100 General Appearance: Alert and oriented. No acute distress. Radiation dermatitis: No IMAGING/LAB RESULTS: Hemoglobin (g/dL) Date Value 10/11/2024 14.8 Hematocrit (%) Date Value 10/11/2024 43.8 WBC (k/uL) Date Value 10/11/2024 14.12 Platelet Count (k/uL) Date Value 10/11/2024 317 Treatment chart checked: Yes Patient treatment site reviewed and verified:Yes Port films reviewed and current:Yes Medications started: None ASSESSMENT/PLAN:Patient doing well. Chart and imaging reviewed. Continue radiation as outlined. Patient will finish later this week. Follow-up care discussed. Severo Dent MD [facility] 10-29-2024 History of Present illness Narrative Radiation Oncology - On Treatment Review (OTR) Note PATIENT NAME: Mateo Stearns PATIENT DIAGNOSIS: Prostate adenocarcinoma, initial PSA 4.46, biopsy [place] score 3 + 3 = 6 (grade group 1), clinical stage T1c, N0, M0, stage I [cT1a-c/T2a, N0, M0, PSA <10, GG 1] (AJCC 8th ed.), s/p TRUS Random biopsy. COURSE: definitive AREA TREATED: Pelvis/prostate CURRENT DOSE: 6000 cGy in 24 fx PLANNED DOSE: 7000 cGy in 28 fx SUBJECTIVE: No significant changes. Mild diarrhea. Mild increased urinary frequency. EXAM: 10/29/24 1028 BP: 126/84 Pulse: 81 Resp: 18 Temp: 36.6 C (97.9 F) SpO2: 95% Weight: 67.7 kg (149 lb 4 oz) KPS: 100 General Appearance: Alert and oriented. No acute distress. Radiation dermatitis: No IMAGING/LAB RESULTS: Hemoglobin (g/dL) Date Value 10/11/2024 14.8 Hematocrit (%) Date Value 10/11/2024 43.8 WBC (k/uL) Date Value 10/11/2024 14.12 Platelet Count (k/uL) Date Value 10/11/2024 317 Treatment chart checked: Yes Patient treatment site reviewed and verified:Yes Port films reviewed and current:Yes Medications started: None ASSESSMENT/PLAN:Patient doing well. Chart and imaging reviewed. Continue radiation as outlined. Patient will finish later this week. Follow-up care discussed. Severo Dent MD documented in this encounter [facility] 10-26-2024 Note HNO ID: [id number] Author: UMU NICOLAS LSW Service: ? Author Type: Flight Surveyor Type: Progress Notes Filed: 10/26/2024 10:44 Note Text: SOCIAL WORK FOLLOW UP NOTE: [facility] Date of service:10/26/24 TOPICS ADDRESSED: community resources PLAN: Continue follow up as needed Assigned SW listed in Care Team tab: Yes SW completed and faxed September 2024 mileage reimbursement log to [facility] SUSANNA Sotomayor [facility] 10-26-2024 History of Present illness Narrative SOCIAL WORK FOLLOW UP NOTE: [facility] Date of service:10/26/24 TOPICS ADDRESSED: community resources PLAN: Continue follow up as needed Assigned SW listed in Care Team tab: Yes SW completed and faxed September 2024 mileage reimbursement log to [facility] SUSANNA Sotomayor documented in this encounter [facility] 10-22-2024 Note HNO ID: [id number] Author: Severo DENT MD Service: ? Author Type: Physician Type: Progress Notes Filed: 10/22/2024 10:51 Note Text: Radiation Oncology - On Treatment Review (OTR) Note PATIENT NAME: Mateo Stearns PATIENT DIAGNOSIS: Prostate adenocarcinoma, initial PSA 4.46, biopsy [place] score 3 + 3 = 6 (grade group 1), clinical stage T1c, N0, M0, stage I [cT1a-c/T2a, N0, M0, PSA <10, GG 1] (AJCC 8th ed.), s/p TRUS Random biopsy. COURSE: definitive AREA TREATED: Pelvis/prostate CURRENT DOSE: 5250 cGy in 21 fx PLANNED DOSE: 7000 cGy in 28 fx SUBJECTIVE: Diarrhea well-controlled with Imodium. Stable mild dysuria. No other changes. EXAM: 10/22/24 1026 BP: 127/81 Pulse: 71 Resp: 18 Temp: 36.2 ?C (97.1 ?F) SpO2: 91% Weight: 67.6 kg (149 lb 0.5 oz) KPS: 100 General Appearance: Alert and oriented. No acute distress. Radiation dermatitis: No IMAGING/LAB RESULTS: Hemoglobin (g/dL) Date Value 10/11/2024 14.8 Hematocrit (%) Date Value 10/11/2024 43.8 WBC (k/uL) Date Value 10/11/2024 14.12 Platelet Count (k/uL) Date Value 10/11/2024 317 Treatment chart checked: Yes Patient treatment site reviewed and verified:Yes Port films reviewed and current:Yes Medications started: None ASSESSMENT/PLAN:Patient doing well. Chart and imaging reviewed. Continue radiation as outlined. Severo Dent MD [facility] 10-22-2024 History of Present illness Narrative Radiation Oncology - On Treatment Review (OTR) Note PATIENT NAME: Mateo Stearns PATIENT DIAGNOSIS: Prostate adenocarcinoma, initial PSA 4.46, biopsy [place] score 3 + 3 = 6 (grade group 1), clinical stage T1c, N0, M0, stage I [cT1a-c/T2a, N0, M0, PSA <10, GG 1] (AJCC 8th ed.), s/p TRUS Random biopsy. COURSE: definitive AREA TREATED: Pelvis/prostate CURRENT DOSE: 5250 cGy in 21 fx PLANNED DOSE: 7000 cGy in 28 fx SUBJECTIVE: Diarrhea well-controlled with Imodium. Stable mild dysuria. No other changes. EXAM: 10/22/24 1026 BP: 127/81 Pulse: 71 Resp: 18 Temp: 36.2 C (97.1 F) SpO2: 91% Weight: 67.6 kg (149 lb 0.5 oz) KPS: 100 General Appearance: Alert and oriented. No acute distress. Radiation dermatitis: No IMAGING/LAB RESULTS: Hemoglobin (g/dL) Date Value 10/11/2024 14.8 Hematocrit (%) Date Value 10/11/2024 43.8 WBC (k/uL) Date Value 10/11/2024 14.12 Platelet Count (k/uL) Date Value 10/11/2024 317 Treatment chart checked: Yes Patient treatment site reviewed and verified:Yes Port films reviewed and current:Yes Medications started: None ASSESSMENT/PLAN:Patient doing well. Chart and imaging reviewed. Continue radiation as outlined. Severo Dent MD documented in this encounter [facility] 10-16-2024 History of Present illness Narrative Associated Problem(s): Prostate cancer (CMS/HCC) Continue with radiation treatment Images from the original note were not included. Mateo Stearns is a 64 y.o. male presents with chief complaint of No chief complaint on file. HPI: Recheck on Cervical neck pain: Since last visit had xrays, NSAID, as well as muscle relaxer script Does feel like the pain has improved some, still with pain and intermittent NT in the C7-C8 dermatome of LUE Not acute neck pain. Muscle relaxers are helping as well SUBJECTIVE: MEDICATIONS: Current Outpatient Medications Medication Instructions albuterol HFA 90 mcg/act inhaler 2 puffs, Inhalation, Every 4 hours PRN aspirin 81 mg, Oral, Daily benzonatate (TESSALON) 200 mg, Oral, 3 times daily PRN, Do not crush or chew. budesonide-formoterol (Symbicort) 160-4.5 MCG/ACT inhaler 2 puffs, Inhalation, 2 times daily RT, Rinse mouth with water after use to reduce aftertaste and incidence of candidiasis. Do not swallow. dilTIAZem XR (DILACOR XR) 180 mg, Oral, Daily guaiFENesin (MUCINEX) 1,200 mg, Oral, 2 times daily, Do not crush, chew, or split. pantoprazole (PROTONIX) 40 mg, Oral, Daily before breakfast predniSONE (DELTASONE) 10 mg, Oral, Daily Restasis 0.05 % ophthalmic emulsion 1 drop, Every 12 hours Roflumilast (DALIRESP) 500 mcg, Oral, Daily sodium chloride 0.9 % nebulizer solution 3 mL, Nebulization, As needed tiotropium (Spiriva Respimat) 2.5 MCG/ACT inhaler 2 puffs, Inhalation, Daily tiZANidine (ZANAFLEX) 4 mg, Oral, Nightly PRN, May take 1/2-1 pill at bedtime ALLERGIES: No Known Allergies REVIEW OF SYMPTOMS: Review of Systems Constitutional: Negative for activity change, appetite change, chills, fatigue, fever and unexpected weight change. HENT: Negative for congestion, ear pain, nosebleeds, rhinorrhea, sinus pressure, sneezing, sore throat, trouble swallowing and voice change. Eyes: Negative for pain, discharge and visual disturbance. Respiratory: Positive for cough, shortness of breath and wheezing. Negative for apnea and chest tightness. Cardiovascular: Negative for chest pain, palpitations and leg swelling. Gastrointestinal: Negative for abdominal distention, abdominal pain, blood in stool, constipation, diarrhea, nausea and vomiting. Genitourinary: Negative for decreased urine volume, difficulty urinating, dysuria, flank pain and hematuria. Musculoskeletal: Positive for neck pain and neck stiffness. Negative for arthralgias, back pain, joint swelling and myalgias. Skin: Negative for color change, rash and wound. Neurological: Positive for numbness. Negative for dizziness, tremors, seizures, weakness and headaches. Psychiatric/Behavioral: Negative for agitation, decreased concentration, hallucinations, self-injury, sleep disturbance and suicidal ideas. The patient is not nervous/anxious. Hematological: Negative for adenopathy. Does not bruise/bleed easily. Endocrine: Negative for cold intolerance, heat intolerance, polydipsia, polyphagia and polyuria. Allergic/Immunologic: Negative for environmental allergies and food allergies. PAST MEDICAL HISTORY Past Medical History: Diagnosis Date Alcoholism (CMS/HCC) Atrial fibrillation (CMS/HCC) Azygos lobe Carpal tunnel syndrome, bilateral Centrilobular emphysema (CMS/HCC) Chronic GERD 12/06/2023 Chronic hypoxemic respiratory failure (CMS/HCC) Chronic lumbar radiculopathy Collapse of left lung 2014 (L) LUNG COLLAPSE / CHEST TUBE COPD (chronic obstructive pulmonary disease) (CMS/HCC) 2016 COPD / IMFLAMMATION OF LUNG DENIES BLOODBORNE DISEASES Elevated PSA Gout, arthritis History of pneumothorax History of tobacco abuse Hyperlipidemia (CMS/HCC) Lobular atelectasis Neuropathy Prostate cancer (CMS/HCC) Right lower lobe lung mass Scrotal mass Tubular adenoma polyp of rectum [place] poylps. Past Surgical History: Procedure Laterality Date BRONCHOSCOPY CARPAL TUNNEL RELEASE Left 05/03/[address] MARQUIS COLONOSCOPY W/ POLYPECTOMY CYST REMOVAL Cyst removed on chest and face CYST REMOVAL Excision of inflamed inclusion cyst left buttocks 4.5 cm. Intermediate closure of 4.5 cm left buttock FOOT SURGERY Right FRACTURE SURGERY Right 2006 HEEL FX W/ PINNING TOTAL HIP ARTHROPLASTY Right 06/16/2017 DR MARQUIS TOTAL HIP ARTHROPLASTY Left 11/15/2017 DR MARQUIS family history includes Alcohol abuse in his father; Chronic bronchitis in his mother; Emphysema in his father; Heart disease in his father and mother; Hypertension in his father. OBJECTIVE: Visit Vitals BP 110/78 (BP Location: Left arm, Patient Position: Sitting, BP Cuff Size: Adult long) Pulse 78 Temp 98 F (Temporal) Resp 20 Ht 5' 9 Wt 150 lb 6.4 oz SpO2 92% BMI 22.21 kg/m Smoking Status Former BSA 1.82 m Physical Exam Vitals and nursing note reviewed. Constitutional: Appearance: Normal appearance. HENT: Head: Normocephalic. Right Ear: External ear normal. Left Ear: External ear normal. Nose: Nose normal. Mouth/Throat: Mouth: Mucous membranes are moist. Pharynx: Oropharynx is clear. Eyes: Extraocular Movements: Extraocular movements intact. Conjunctiva/sclera: Conjunctivae normal. Cardiovascular: Rate and Rhythm: Normal rate and regular rhythm. Pulses: Normal pulses. Heart sounds: Normal heart sounds. Pulmonary: Effort: Pulmonary effort is normal. Breath sounds: Wheezing present. Musculoskeletal: Cervical back: Neck supple. Right lower leg: No edema. Left lower leg: No edema. Comments: Decreased end ROM all planes for cervical spine, +tightness in trap region Skin: General: Skin is warm and dry. Capillary Refill: Capillary refill takes 2 to 3 seconds. Neurological: General: No focal deficit present. Mental Status: He is alert. Psychiatric: Mood and Affect: Mood normal. Behavior: Behavior normal. Thought Content: Thought content normal. Judgment: Judgment normal. ASSESSMENT AND PLAN: Follow up in about 2 months (around 12/16/2024) for Recheck. Problem List Items Addressed This Visit Atrial fibrillation (CMS/HCC) Relevant Medications dilTIAZem XR (Dilacor XR) 180 MG 24 hr capsule Prostate cancer (CMS/HCC) Continue with radiation treatment DDD (degenerative disc disease), cervical - Primary Since last visit had xray neck, on NSAIDS and muscle relaxers Is doing somewhat better, is requesting a refill on his muscle relaxers Time spent describing DDD, role of dermatomes in helping to isolate where more of issues is at, discussed spondylthesis as well Offered pain mgmt referral, he has declined this . PT has declined as well At this point he is doing better, but is also doing radiation therapy daily. I have given him some hand out on neck stretching exercises, he will try these We will fu in 2 months and at that time he should be through his cancer treatments and we will see how is doing with HEP and his symtpoms Relevant Medications tiZANidine (Zanaflex) 4 MG tablet Other Visit Diagnoses Gastro-esophageal reflux disease without esophagitis Relevant Medications pantoprazole (ProtoNix) 40 MG EC tablet Associated Problem(s): DDD (degenerative disc disease), cervical Since last visit had xray neck, on NSAIDS and muscle relaxers Is doing somewhat better, is requesting a refill on his muscle relaxers Time spent describing DDD, role of dermatomes in helping to isolate where more of issues is at, discussed spondylthesis as well Offered pain mgmt referral, he has declined this . PT has declined as well At this point he is doing better, but is also doing radiation therapy daily. I have given him some hand out on neck stretching exercises, he will try these We will fu in 2 months and at that time he should be through his cancer treatments and we will see how is doing with HEP and his symtpoms documented in this encounter [facility] 10-16-2024 Instructions Kathie Sánchez NP - 10/16/2024 11:00 AM EST Will give you some hand outs on stretching exercises Follow up in November 2024 for recheck documented in this encounter [facility] 10-15-2024 Note HNO ID: [id number] Author: Severo DENT MD Service: ? Author Type: Physician Type: Progress Notes Filed: 10/15/2024 15:22 Note Text: Radiation Oncology - On Treatment Review (OTR) Note PATIENT NAME: Mateo Stearns PATIENT DIAGNOSIS: Prostate adenocarcinoma, initial PSA 4.46, biopsy [place] score 3 + 3 = 6 (grade group 1), clinical stage T1c, N0, M0, stage I [cT1a-c/T2a, N0, M0, PSA <10, GG 1] (AJCC 8th ed.), s/p TRUS Random biopsy. COURSE: definitive AREA TREATED: Pelvis/prostate CURRENT DOSE: 3750 cGy in 15 fx PLANNED DOSE: 7000 cGy in 28 fx SUBJECTIVE: Has had some mild diarrhea over the last week. Mild dysuria. No other changes. EXAM: 10/15/24 1045 BP: 121/81 Pulse: 87 Resp: 16 Temp: 36.6 ?C (97.8 ?F) SpO2: 95% Weight: 67.9 kg (149 lb 11.1 oz) KPS: 100 General Appearance: Alert and oriented. No acute distress. Radiation dermatitis: No IMAGING/LAB RESULTS: Hemoglobin (g/dL) Date Value 10/11/2024 14.8 Hematocrit (%) Date Value 10/11/2024 43.8 WBC (k/uL) Date Value 10/11/2024 14.12 Platelet Count (k/uL) Date Value 10/11/2024 317 Treatment chart checked: Yes Patient treatment site reviewed and verified:Yes Port films reviewed and current:Yes Medications started: None ASSESSMENT/PLAN: Patient doing well. Discussed diet and Imodium use for diarrhea. Chart and imaging reviewed. Continue radiation as outlined. WBC slightly elevated may reflect recent URI. I did recheck in 2 weeks. Severo Dent MD [facility] 10-15-2024 History of Present illness Narrative Radiation Oncology - On Treatment Review (OTR) Note PATIENT NAME: Mateo Stearns PATIENT DIAGNOSIS: Prostate adenocarcinoma, initial PSA 4.46, biopsy [place] score 3 + 3 = 6 (grade group 1), clinical stage T1c, N0, M0, stage I [cT1a-c/T2a, N0, M0, PSA <10, GG 1] (AJCC 8th ed.), s/p TRUS Random biopsy. COURSE: definitive AREA TREATED: Pelvis/prostate CURRENT DOSE: 3750 cGy in 15 fx PLANNED DOSE: 7000 cGy in 28 fx SUBJECTIVE: Has had some mild diarrhea over the last week. Mild dysuria. No other changes. EXAM: 10/15/24 1045 BP: 121/81 Pulse: 87 Resp: 16 Temp: 36.6 C (97.8 F) SpO2: 95% Weight: 67.9 kg (149 lb 11.1 oz) KPS: 100 General Appearance: Alert and oriented. No acute distress. Radiation dermatitis: No IMAGING/LAB RESULTS: Hemoglobin (g/dL) Date Value 10/11/2024 14.8 Hematocrit (%) Date Value 10/11/2024 43.8 WBC (k/uL) Date Value 10/11/2024 14.12 Platelet Count (k/uL) Date Value 10/11/2024 317 Treatment chart checked: Yes Patient treatment site reviewed and verified:Yes Port films reviewed and current:Yes Medications started: None ASSESSMENT/PLAN: Patient doing well. Discussed diet and Imodium use for diarrhea. Chart and imaging reviewed. Continue radiation as outlined. WBC slightly elevated may reflect recent URI. I did recheck in 2 weeks. Severo Dent MD documented in this encounter [facility] 10-11-2024 Nurse Note Mateo Stearns presents in office today for: Lab Draw only . Ordering Provider: Gopal Dent M.D. Test (s) ordered: CBC Method for obtaining blood: Phlebotomy was performed, accessing left antecubital vein. Needle removed intact. Dressing secured. Patient denies discomfort, dizziness, light-headedness or weakness and left the department without assist. Dayanna Call LPN [facility] 10-11-2024 Nurse Note Mateo Stearns presents in office today for: Lab Draw only . Ordering Provider: Gopal Dent M.D. Test (s) ordered: CBC Method for obtaining blood: Phlebotomy was performed, accessing left antecubital vein. Needle removed intact. Dressing secured. Patient denies discomfort, dizziness, light-headedness or weakness and left the department without assist. Dayanna Call LPN documented in this encounter [facility] 10-08-2024 Note HNO ID: [id number] Author: Severo DENT MD Service: ? Author Type: Physician Type: Progress Notes Filed: 10/08/2024 14:18 Note Text: Radiation Oncology - On Treatment Review (OTR) Note PATIENT NAME: Mateo Stearns PATIENT DIAGNOSIS: Prostate adenocarcinoma, initial PSA 4.46, biopsy [place] score 3 + 3 = 6 (grade group 1), clinical stage T1c, N0, M0, stage I [cT1a-c/T2a, N0, M0, PSA <10, GG 1] (AJCC 8th ed.), s/p TRUS Random biopsy. COURSE: definitive AREA TREATED: Pelvis/prostate CURRENT DOSE: 2500 cGy in 10 fx PLANNED DOSE: 7000 cGy in 28 fx SUBJECTIVE: Has some mild sinus symptoms, improving. Mild dysuria. No other issues. Denies fever. EXAM: 10/08/24 1034 BP: 165/76 Pulse: 103 Resp: 18 Temp: (!) 35.9 ?C (96.7 ?F) SpO2: 90% Weight: 68.6 kg (151 lb 3.8 oz) KPS: 100 General Appearance: Alert and oriented. No acute distress. Radiation dermatitis: No IMAGING/LAB RESULTS: Hemoglobin (g/dL) Date Value 10/04/2024 15.0 Hematocrit (%) Date Value 10/04/2024 43.9 WBC (k/uL) Date Value 10/04/2024 11.30 Platelet Count (k/uL) Date Value 10/04/2024 330 Treatment chart checked: Yes Patient treatment site reviewed and verified:Yes Port films reviewed and current:Yes Medications started: None ASSESSMENT/PLAN: Patient doing well. Mild URI improving. Chart and imaging reviewed. Continue radiation as outlined. Slight elevation WBC recheck this week. Severo Dent MD [facility] 10-08-2024 History of Present illness Narrative Radiation Oncology - On Treatment Review (OTR) Note PATIENT NAME: Mateo Stearns PATIENT DIAGNOSIS: Prostate adenocarcinoma, initial PSA 4.46, biopsy [place] score 3 + 3 = 6 (grade group 1), clinical stage T1c, N0, M0, stage I [cT1a-c/T2a, N0, M0, PSA <10, GG 1] (AJCC 8th ed.), s/p TRUS Random biopsy. COURSE: definitive AREA TREATED: Pelvis/prostate CURRENT DOSE: 2500 cGy in 10 fx PLANNED DOSE: 7000 cGy in 28 fx SUBJECTIVE: Has some mild sinus symptoms, improving. Mild dysuria. No other issues. Denies fever. EXAM: 10/08/24 1034 BP: 165/76 Pulse: 103 Resp: 18 Temp: (!) 35.9 C (96.7 F) SpO2: 90% Weight: 68.6 kg (151 lb 3.8 oz) KPS: 100 General Appearance: Alert and oriented. No acute distress. Radiation dermatitis: No IMAGING/LAB RESULTS: Hemoglobin (g/dL) Date Value 10/04/2024 15.0 Hematocrit (%) Date Value 10/04/2024 43.9 WBC (k/uL) Date Value 10/04/2024 11.30 Platelet Count (k/uL) Date Value 10/04/2024 330 Treatment chart checked: Yes Patient treatment site reviewed and verified:Yes Port films reviewed and current:Yes Medications started: None ASSESSMENT/PLAN: Patient doing well. Mild URI improving. Chart and imaging reviewed. Continue radiation as outlined. Slight elevation WBC recheck this week. Severo Dent MD documented in this encounter [facility] 10-04-2024 Nurse Note Mateo Stearns presents in office today for: Lab Draw only . Ordering Provider: Gopal Dent M.D. Test (s) ordered: CBC Method for obtaining blood: Phlebotomy was performed, accessing left antecubital vein. Needle removed intact. Dressing secured. Patient denies discomfort, dizziness, light-headedness or weakness and left the department without assist. Dayanna Call LPN [facility] 10-04-2024 Nurse Note Mateo Stearns presents in office today for: Lab Draw only . Ordering Provider: Gopal Dent M.D. Test (s) ordered: CBC Method for obtaining blood: Phlebotomy was performed, accessing left antecubital vein. Needle removed intact. Dressing secured. Patient denies discomfort, dizziness, light-headedness or weakness and left the department without assist. Dayanna Call LPN documented in this encounter [facility] 10-01-2024 Note HNO ID: [id number] Author: Severo DENT MD Service: ? Author Type: Physician Type: Progress Notes Filed: 10/01/2024 10:51 Note Text: Radiation Oncology - On Treatment Review (OTR) Note PATIENT NAME: Mateo Stearns PATIENT DIAGNOSIS: Prostate adenocarcinoma, initial PSA 4.46, biopsy [place] score 3 + 3 = 6 (grade group 1), clinical stage T1c, N0, M0, stage I [cT1a-c/T2a, N0, M0, PSA <10, GG 1] (AJCC 8th ed.), s/p TRUS Random biopsy. COURSE: definitive AREA TREATED: Pelvis/prostate CURRENT DOSE: 1250 cGy in 5 fx PLANNED DOSE: 7000 cGy in 28 fx SUBJECTIVE: Has some mild sinus symptoms no other issues. EXAM: 10/01/24 1042 BP: 129/83 Pulse: 99 Resp: 18 Temp: 36.6 ?C (97.9 ?F) SpO2: (!) 87% Weight: 67.6 kg (149 lb 0.5 oz) KPS: 100 General Appearance: Alert and oriented. No acute distress. Radiation dermatitis: No IMAGING/LAB RESULTS: None Treatment chart checked: Yes Patient treatment site reviewed and verified:Yes Port films reviewed and current:Yes Medications started: None ASSESSMENT/PLAN: Patient doing well. Chart and imaging reviewed. Continue radiation as outlined. Severo Dent MD [facility] 10-01-2024 History of Present illness Narrative Radiation Oncology - On Treatment Review (OTR) Note PATIENT NAME: Mateo Stearns PATIENT DIAGNOSIS: Prostate adenocarcinoma, initial PSA 4.46, biopsy [place] score 3 + 3 = 6 (grade group 1), clinical stage T1c, N0, M0, stage I [cT1a-c/T2a, N0, M0, PSA <10, GG 1] (AJCC 8th ed.), s/p TRUS Random biopsy. COURSE: definitive AREA TREATED: Pelvis/prostate CURRENT DOSE: 1250 cGy in 5 fx PLANNED DOSE: 7000 cGy in 28 fx SUBJECTIVE: Has some mild sinus symptoms no other issues. EXAM: 10/01/24 1042 BP: 129/83 Pulse: 99 Resp: 18 Temp: 36.6 C (97.9 F) SpO2: (!) 87% Weight: 67.6 kg (149 lb 0.5 oz) KPS: 100 General Appearance: Alert and oriented. No acute distress. Radiation dermatitis: No IMAGING/LAB RESULTS: None Treatment chart checked: Yes Patient treatment site reviewed and verified:Yes Port films reviewed and current:Yes Medications started: None ASSESSMENT/PLAN: Patient doing well. Chart and imaging reviewed. Continue radiation as outlined. Severo Dent MD documented in this encounter [facility] 09-25-2024 Note HNO ID: [id number] Author: [employer] NICOLAS LSW Service: ? Author Type: Flight Surveyor Type: Progress Notes Filed: 09/25/2024 14:02 Note Text: SOCIAL WORK FOLLOW UP NOTE: [facility] Date of service:09/25/24 TOPICS ADDRESSED: community resources PLAN: Continue follow up as needed Assigned SW listed in Care Team tab: Yes SW completed and faxed a mileage reimbursement form on the Patient's behalf to [facility] for the month of August 2024. SUSANNA Sotomayor [facility] 09-25-2024 History of Present illness Narrative SOCIAL WORK FOLLOW UP NOTE: [facility] Date of service:09/25/24 TOPICS ADDRESSED: community resources PLAN: Continue follow up as needed Assigned SW listed in Care Team tab: Yes SW completed and faxed a mileage reimbursement form on the Patient's behalf to [facility] for the month of August 2024. SUSANNA Sotomayor documented in this encounter [facility] 09-25-2024 History of Present illness Narrative Radiation Oncology - On Treatment Review (OTR) Note PATIENT NAME: Mateo Stearns PATIENT DIAGNOSIS: Prostate adenocarcinoma, initial PSA 4.46, biopsy [place] score 3 + 3 = 6 (grade group 1), clinical stage T1c, N0, M0, stage I [cT1a-c/T2a, N0, M0, PSA <10, GG 1] (AJCC 8th ed.), s/p TRUS Random biopsy. COURSE: definitive AREA TREATED: Pelvis/prostate CURRENT DOSE: 250 cGy in 1 fx PLANNED DOSE: 7000 cGy in 28 fx SUBJECTIVE: Here to start radiation, doing well. EXAM: KPS: 100 General Appearance: Alert and oriented. No acute distress. Radiation dermatitis: No IMAGING/LAB RESULTS: None Treatment chart checked: Yes Patient treatment site reviewed and verified:Yes Port films reviewed and current:Yes Medications started: None ASSESSMENT/PLAN: Patient starting radiation today. Plan of care and expectations again reviewed. Plan, MU calculations and qa report reviewed. Initial imaging including cone beam ct and verification reviewed and approved. First treatment given. Continue radiation as prescribed. Severo Dnet MD documented in this encounter [facility] 09-25-2024 Note HNO ID: [id number] Author: Severo DENT MD Service: ? Author Type: Physician Type: Progress Notes Filed: 09/26/2024 16:56 Note Text: Radiation Oncology - On Treatment Review (OTR) Note PATIENT NAME: Mateo Stearns PATIENT DIAGNOSIS: Prostate adenocarcinoma, initial PSA 4.46, biopsy [place] score 3 + 3 = 6 (grade group 1), clinical stage T1c, N0, M0, stage I [cT1a-c/T2a, N0, M0, PSA <10, GG 1] (AJCC 8th ed.), s/p TRUS Random biopsy. COURSE: definitive AREA TREATED: Pelvis/prostate CURRENT DOSE: 250 cGy in 1 fx PLANNED DOSE: 7000 cGy in 28 fx SUBJECTIVE: Here to start radiation, doing well. EXAM: KPS: 100 General Appearance: Alert and oriented. No acute distress. Radiation dermatitis: No IMAGING/LAB RESULTS: None Treatment chart checked: Yes Patient treatment site reviewed and verified:Yes Port films reviewed and current:Yes Medications started: None ASSESSMENT/PLAN: Patient starting radiation today. Plan of care and expectations again reviewed. Plan, MU calculations and qa report reviewed. Initial imaging including cone beam ct and verification reviewed and approved. First treatment given. Continue radiation as prescribed. Severo Dent MD [facility] 09-24-2024 Telephone encounter Note CBC order pending your approval. Dayanna Call RN [facility] 09-24-2024 Miscellaneous Notes CBC order pending your approval. Dayanna Call RN documented in this encounter [facility] 09-18-2024 Note HNO ID: [id number] Author: [employer] NICOLAS LSW Service: ? Author Type: Flight Surveyor Type: Progress Notes Filed: 09/18/2024 14:01 Note Text: SOCIAL WORK FOLLOW UP NOTE: [facility] Date of service:09/18/24 Mateo Stearns is being seen for a follow up social work visit. Today's visit includes: patient TOPICS ADDRESSED: finances and community resources PLAN: Assist with financial support applications, Continue follow up as needed , and Referral to community resource Assigned SW listed in Care Team tab: Yes Referral received to discuss financial assistance programs. SW called Patient and offered a referral to [facility] for their mileage reimbursement. Patient was agreeable and a referral was made. This SW will begin to submit monthly mileage logs to [facility] on the Patient's behalf. SW will remain available and will follow up as appropriate. SUSANNA Sotomayor [facility] 09-18-2024 History of Present illness Narrative SOCIAL WORK FOLLOW UP NOTE: [facility] Date of service:09/18/24 Mateo Stearns is being seen for a follow up social work visit. Today's visit includes: patient TOPICS ADDRESSED: finances and community resources PLAN: Assist with financial support applications, Continue follow up as needed , and Referral to community resource Assigned SW listed in Care Team tab: Yes Referral received to discuss financial assistance programs. SW called Patient and offered a referral to [facility] for their mileage reimbursement. Patient was agreeable and a referral was made. This SW will begin to submit monthly mileage logs to [facility] on the Patient's behalf. SW will remain available and will follow up as appropriate. SUSANNA Sotomayor documented in this encounter [facility] 09-17-2024 History of Present illness Narrative JINNY ALIAJACKELINE Payan [id number] 09/17/2024 [facility] Radiation Oncology Department SIMULATION NOTE DATE OF SIMULATION: 09/17/2024 THERAPIST: Sabina Rico MACHINE: [employer] DIAGNOSIS: Malignant neoplasm of [id number] AREA: PELVIS CONTRAST: None <Select> Consent in Epic: Yes PATIENT POSITION: Supine. FIXATION DEVICE: In order to achieve accurate and reproducible treatments, the patient is immobilized with THE ORFIT AIO SYSTEM. A time-out was conducted and recorded by the therapist. CT scan was completed for target localization and planning. Field arrangement will be determined after plan has been completed. The patient is scheduled for a verification simulation on the treatment machine to ensure proper set-up and field arrangement is correct prior to the first treatment of primary and boost ren if applicable. Patient education will be completed per nursing. Electronically Signed Gopal Dent M.D. / MARIUSZ 44:32 PM documented in this encounter [facility] 09-17-2024 History of Present illness Narrative JINNYJOSE ANGEL MARSHALLHEMA Payan [id number] 09/17/2024 [facility] Department of Radiation Oncology Treatment Planning Note For reasons stated in the consult note, Mateo Stearns is a candidate for radiation therapy. Based on review and interpretation of the relevant diagnostic studies together with the exam findings, Mateo Stearns was simulated on 09/17/2024 at which time the target volume and/or requisite ren were delineated, as indicated in the simulation note, to be treated according to the prescription. The treatment target and organs at risk were contoured on the simulation scan using the fused MRI /. After reviewing multiple treatment plans with dosimetry, the best plan was approved to deliver the prescribed course of radiation to the target area using inverse planning to allow for the best isodose distribution, treating to the 97% isodose line with 10MV and 2 ren. Custom MLC asym jaws for IMRT were the treatment devices used to shape/modify the beams. Limiting dose to normal tissue was confirmed upon review of the calculated dose volume histogram. IMRT planning was used because it best met the dose/volume constraints for the organs at risk for this patient, better than what could be achieved using conventional or 3D planning. The specific dose requirements for the PTV, organs at risk and dose-volume histograms are contained in this treatment plan and/or elsewhere in the medical record. A completed summary of this plan dated 09/21/2024 incorporated herein by reference includes dose, beam arrangements, energy, blocking, isodose distribution, and/or ports and DVH. Electronically Signed Gopal Dent M.D. :19 AM documented in this encounter [facility] 09-17-2024 Note HNO ID: [id number] Author: Severo DENT MD Service: ? Author Type: Physician Type: Progress Notes Filed: 09/18/2024 16:32 Note Text: MATEO STEARNS [id number] 09/17/2024 [facility] Radiation Oncology Department SIMULATION NOTE DATE OF SIMULATION: 09/17/2024 THERAPIST: Sabina Rico MACHINE: [employer] DIAGNOSIS: Malignant neoplasm of [id number] AREA: PELVIS CONTRAST: None Consent in Epic: Yes PATIENT POSITION: Supine. FIXATION DEVICE: In order to achieve accurate and reproducible treatments, the patient is immobilized with THE ORFIT AIO SYSTEM. A time-out was conducted and recorded by the therapist. CT scan was completed for target localization and planning. Field arrangement will be determined after plan has been completed. The patient is scheduled for a verification simulation on the treatment machine to ensure proper set-up and field arrangement is correct prior to the first treatment of primary and boost ren if applicable. Patient education will be completed per nursing. Electronically Signed Gopal Dent M.D. / KG :32 PM [facility] 09-17-2024 Note HNO ID: [id number] Author: Severo DENT MD Service: ? Author Type: Physician Type: Progress Notes Filed: 09/26/2024 08:19 Note Text: MATEO STEARNS [id number] 09/17/2024 [facility] Department of Radiation Oncology Treatment Planning Note For reasons stated in the consult note, Mateo Stearns is a candidate for radiation therapy. Based on review and interpretation of the relevant diagnostic studies together with the exam findings, Mateo Stearns was simulated on 09/17/2024 at which time the target volume and/or requisite ren were delineated, as indicated in the simulation note, to be treated according to the prescription. The treatment target and organs at risk were contoured on the simulation scan using the fused MRI /. After reviewing multiple treatment plans with dosimetry, the best plan was approved to deliver the prescribed course of radiation to the target area using inverse planning to allow for the best isodose distribution, treating to the 97% isodose line with 10MV and 2 ren. Custom MLC asym jaws for IMRT were the treatment devices used to shape/modify the beams. Limiting dose to normal tissue was confirmed upon review of the calculated dose volume histogram. IMRT planning was used because it best met the dose/volume constraints for the organs at risk for this patient, better than what could be achieved using conventional or 3D planning. The specific dose requirements for the PTV, organs at risk and dose-volume histograms are contained in this treatment plan and/or elsewhere in the medical record. A completed summary of this plan dated 09/21/2024 incorporated herein by reference includes dose, beam arrangements, energy, blocking, isodose distribution, and/or ports and DVH. Electronically Signed Gopal Dent M.D. :19 AM [facility] 09-14-2024 Telephone encounter Note I called and spoke with the Patient and I have him scheduled with a [facility] appointment (Phone call) to discuss his Financial Questions on 09/18/24 at 9 am. DARRIUS Mckee [facility] 09-14-2024 Miscellaneous Notes I called and spoke with the Patient and I have him scheduled with a [facility] appointment (Phone call) to discuss his Financial Questions on 09/18/24 at 9 am. DARRIUS Mckee PT called in with multiple financial concerns regarding his treatment. He would like to speak to someone regarding if his treatment will be authorized and what out of pocket costs he may have. PSS- can you set him up with the correct dept for this? He also mentioned needing assistance with gas driving back and forth. I let him know I will send this to [employer] to reach out to him to see what assistance she may be able to provide with mileage reimbursement or gas cards. [facility]- please contact pt. Mona Melvin RN documented in this encounter [facility] 09-14-2024 Telephone encounter Note PT called in with multiple financial concerns regarding his treatment. He would like to speak to someone regarding if his treatment will be authorized and what out of pocket costs he may have. PSS- can you set him up with the correct dept for this? He also mentioned needing assistance with gas driving back and forth. I let him know I will send this to [employer] to reach out to him to see what assistance she may be able to provide with mileage reimbursement or gas cards. [facility]- please contact pt. Mona Melvin RN [facility] 09-13-2024 History of Present illness Narrative Associated Problem(s): DDD (degenerative disc disease), cervical Check xray, trial muscle relaxer Stretching exercises, fu in 4 weeks Consider further work up if needed (PT/pain mgmt/MRI) Associated Problem(s): Other chronic pain Wanted refill of prn ibuprofen Pt is going to start radiation prep on Tuesday he is doing 5 weeks Pt has been having left arm pain that starts in the back/left shoulder blade goes down the arm and tingling in the arm/hands Images from the original note were not included. Mateo Stearns is a 64 y.o. male presents with chief complaint of No chief complaint on file. HPI: Here for recheck: COPD: continue with Samsa, no major changes in his condition Prostate Cancer: is going to be starting external beam radiation in the next week of so C/o left shoulder blade and arm pain : 3 weeks, no injury, constant, no decreased strength, +NT in the C7-C8 dermatome pattern, pain described as achy. Mild neck pain, no ant shoulder pain SUBJECTIVE: MEDICATIONS: Current Outpatient Medications Medication Instructions albuterol HFA 90 mcg/act inhaler 2 puffs, Inhalation, Every 4 hours PRN aspirin 81 mg, Oral, Daily benzonatate (TESSALON) 200 mg, Oral, 3 times daily PRN, Do not crush or chew. budesonide-formoterol (Symbicort) 160-4.5 MCG/ACT inhaler 2 puffs, Inhalation, 2 times daily RT, Rinse mouth with water after use to reduce aftertaste and incidence of candidiasis. Do not swallow. dilTIAZem XR (DILACOR XR) 180 mg, Oral, Daily guaiFENesin (MUCINEX) 1,200 mg, Oral, 2 times daily, Do not crush, chew, or split. ibuprofen 800 mg, Oral, Every 8 hours PRN, Take with food pantoprazole (PROTONIX) 40 mg, Oral, Daily before breakfast predniSONE (DELTASONE) 10 mg, Oral, Daily Restasis 0.05 % ophthalmic emulsion 1 drop, Every 12 hours Roflumilast (DALIRESP) 500 mcg, Oral, Daily sodium chloride 0.9 % nebulizer solution 3 mL, Nebulization, As needed tiotropium (Spiriva Respimat) 2.5 MCG/ACT inhaler 2 puffs, Inhalation, Daily tiZANidine (ZANAFLEX) 4 mg, Oral, Nightly PRN, May take 1/2-1 pill at bedtime ALLERGIES: No Known Allergies REVIEW OF SYMPTOMS: Review of Systems Constitutional: Negative for activity change, appetite change and unexpected weight change. HENT: Negative for ear pain, nosebleeds, sneezing, trouble swallowing and voice change. Eyes: Negative for pain, discharge and visual disturbance. Respiratory: Positive for cough, shortness of breath and wheezing. Negative for apnea and chest tightness. Cardiovascular: Negative for leg swelling. Gastrointestinal: Negative for abdominal distention, blood in stool, constipation and diarrhea. Genitourinary: Negative for decreased urine volume, difficulty urinating, dysuria and hematuria. Musculoskeletal: Positive for arthralgias and neck stiffness. Skin: Negative for color change. Neurological: Negative for dizziness, tremors and seizures. Psychiatric/Behavioral: Negative for agitation, decreased concentration, hallucinations, self-injury and suicidal ideas. The patient is not nervous/anxious. Hematological: Negative for adenopathy. Does not bruise/bleed easily. Endocrine: Negative for cold intolerance, heat intolerance, polydipsia and polyuria. Allergic/Immunologic: Negative for environmental allergies and food allergies. PAST MEDICAL HISTORY Past Medical History: Diagnosis Date Alcoholism (CMS/HCC) Atrial fibrillation ([facility]/HCC) Azygos lobe Carpal tunnel syndrome, bilateral Centrilobular emphysema (CMS/HCC) Chronic GERD 12/06/2023 Chronic hypoxemic respiratory failure (CMS/HCC) Chronic lumbar radiculopathy Collapse of left lung 2014 (L) LUNG COLLAPSE / CHEST TUBE COPD (chronic obstructive pulmonary disease) (CMS/HCC) 2016 COPD / IMFLAMMATION OF LUNG DENIES BLOODBORNE DISEASES Elevated PSA Gout, arthritis History of pneumothorax History of tobacco abuse Hyperlipidemia (CMS/HCC) Lobular atelectasis Neuropathy Prostate cancer (CMS/HCC) Right lower lobe lung mass Scrotal mass Tubular adenoma polyp of rectum [place] poylps. Past Surgical History: Procedure Laterality Date BRONCHOSCOPY CARPAL TUNNEL RELEASE Left 05/03/[address] MARQUIS COLONOSCOPY W/ POLYPECTOMY CYST REMOVAL Cyst removed on chest and face CYST REMOVAL Excision of inflamed inclusion cyst left buttocks 4.5 cm. Intermediate closure of 4.5 cm left buttock FOOT SURGERY Right FRACTURE SURGERY Right 2006 HEEL FX W/ PINNING TOTAL HIP ARTHROPLASTY Right 06/16/2017 DR MARQUIS TOTAL HIP ARTHROPLASTY Left 11/15/2017 DR MARQUIS family history includes Alcohol abuse in his father; Chronic bronchitis in his mother; Emphysema in his father; Heart disease in his father and mother; Hypertension in his father. OBJECTIVE: Visit Vitals Pulse 96 Temp 98.4 F (Temporal) Resp 10 Ht 5' 9 Wt 147 lb 9.6 oz SpO2 97% BMI 21.80 kg/m Smoking Status Former BSA 1.81 m Physical Exam Vitals and nursing note reviewed. Constitutional: Appearance: Normal appearance. HENT: Head: Normocephalic. Right Ear: External ear normal. Left Ear: External ear normal. Nose: Nose normal. Mouth/Throat: Mouth: Mucous membranes are moist. Pharynx: Oropharynx is clear. Eyes: Extraocular Movements: Extraocular movements intact. Conjunctiva/sclera: Conjunctivae normal. Neck: Vascular: No carotid bruit. Cardiovascular: Rate and Rhythm: Normal rate and regular rhythm. Pulses: Normal pulses. Heart sounds: Normal heart sounds. Pulmonary: Effort: Pulmonary effort is normal. Breath sounds: Wheezing (exp) and rhonchi present. Abdominal: General: Bowel sounds are normal. Palpations: Abdomen is soft. There is no mass. Tenderness: There is no abdominal tenderness. There is no guarding. Hernia: A hernia is present. Musculoskeletal: Cervical back: Neck supple. Right lower leg: No edema. Left lower leg: No edema. Comments: Cervical neck: forward flexed, left shoulder blade pain with end range flex/ext and rotation. Hand grasps=bilat, DTR's 2+ bilat UE Skin: General: Skin is warm and dry. Capillary Refill: Capillary refill takes 2 to 3 seconds. Neurological: General: No focal deficit present. Mental Status: He is alert. Psychiatric: Mood and Affect: Mood normal. Behavior: Behavior normal. Thought Content: Thought content normal. Judgment: Judgment normal. ASSESSMENT AND PLAN: No follow-ups on file. Problem List Items Addressed This Visit Chronic respiratory failure with hypoxia (CMS/HCC) Fu per dr alves Atherosclerosis of aorta (CMS/HCC) Per CT Thoracic aortic aneurysm, without rupture, unspecified (CMS/HCC) Per CT Other thrombophilia (CMS/HCC) On anti coagulation DDD (degenerative disc disease), cervical - Primary Check xray, trial muscle relaxer Stretching exercises, fu in 4 weeks Consider further work up if needed (PT/pain mgmt/MRI) Relevant Medications tiZANidine (Zanaflex) 4 MG tablet Other Relevant Orders XR cervical spine 2 or 3 views Other chronic pain Wanted refill of prn ibuprofen Relevant Medications ibuprofen 800 MG tablet Other Visit Diagnoses Abdominal aortic aneurysm, without rupture, unspecified (CMS/HCC) Associated Problem(s): Other thrombophilia (CMS/HCC) On anti coagulation Associated Problem(s): Atherosclerosis of aorta (CMS/HCC) Per CT Associated Problem(s): Thoracic aortic aneurysm, without rupture, unspecified (CMS/HCC) Per CT Associated Problem(s): Chronic respiratory failure with hypoxia (CMS/HCC) Fu per dr alves documented in this encounter [facility] 09-11-2024 Nurse Note Radiation Therapy - Patient Education Note PATIENT NAME: Mateo Stearns PATIENT September 11, 2024 [facility]/LOCATION: [facility] READINESS TO LEARN Cognitive Ability: Alert and oriented Motivation to learn: Interested Family Support: unable to assess. Alia is currently raising his 5 year old [...] need for social work, van service, and silk worker. Was PED reviewed? No Patient has an Onbody or Implanted device: No Signed by: Dayanna Call RN [facility] 09-11-2024 Nurse Note Radiation Therapy - Patient Education Note PATIENT NAME: Mateo Stearns PATIENT September 11, 2024 [facility]/LOCATION: [facility] READINESS TO LEARN Cognitive Ability: Alert and oriented Motivation to learn: Interested Family Support: unable to assess. Alia is currently raising his 5 year old [...] need for social work, van service, and silk worker. Was PED reviewed? No Patient has an Onbody or Implanted device: No Signed by: Dayanna Call RN documented in this encounter [facility] 09-11-2024 History of Present illness Narrative Radiation Oncology - Prostate Cancer Follow-up note PATIENT NAME: Mateo Stearns PATIENT DIAGNOSIS: Prostate adenocarcinoma, initial PSA 4.46, biopsy [place] score 3 + 3 = 6 (grade group 1), clinical stage T1c, N0, M0, stage I [cT1a-c/T2a, N0, M0, PSA <10, GG 1] (AJCC 8th ed.), s/p TRUS Random biopsy. HPI: Patient in for follow-up to discuss treatment options again. Laboratory: [employer] genomic risk score: 0.43 (low risk) PSA. (no units) Date Value 09/07/2024 7.20 11/30/2023 4.22. 06/21/2024 6.8 Prior Radiation Therapy, Collagen Vascular Disease, or Inflammatory Bowel Disease: No Any implanted or external electric devices? No Currently on Anticoagulation: No History of Hip Replacement: No History of Prior TURP: No ALLERGIES No Known Allergies predniSONE (DELTASONE) 10 mg tablet Refills(s) 0 aspirin, enteric coated (ASPIRIN, ENTERIC COATED) 81 [...] Take 2 pills daily x 3 days (Patient not taking: Reported on 09/11/2024) PAST MEDICAL HISTORY Diagnosis Date Atrial fibrillation (HCC) COPD (chronic obstructive pulmonary disease) (HCC) Emphysema of lung (HCC) GERD (gastroesophageal reflux disease) PAST SURGICAL HISTORY Procedure Laterality Date ELBOW Left 1967 FOOT RIGHT OP SURGERY REVISE MEDIAN N/CARPAL TUNNEL SURG Left TOTAL HIP REPLACEMENT Bilateral FAMILY HISTORY Problem Relation Age of Onset COPD Father Social History Tobacco Use Smoking status: Former Current packs/day: 0.00 Average packs/day: 2.5 packs/day for 37.0 years (92.5 ttl pk-yrs) Types: Cigarettes Start date: 1979 Quit date: 2016 Years since quittin.8 Smokeless tobacco: Never Vaping Use Vaping status: Never Used Substance Use Topics Alcohol use: Not Currently [...] noted in HPI PHYSICAL EXAM: VS: BP 146/82 Pulse 80 Temp 36.6 C (97.8 F) Resp 18 Wt 68.1 kg (150 lb 2.1 oz) SpO2 94% BMI 23.51 kg/m KARNOFSKY PERFORMANCE STATUS: 100 General Appearance: [...] State: Localized Cancer - New Diagnosis Patient states he does not want to pursue surgery or invasive procedures. Does not want to consider prostate brachytherapy. Does want to consider external beam treatment. Discussed both acute and potential long-term effects of all options. Again discussed watchful waiting. Will plan to proceed with definitive course of treatment, 70 Gy and 28 fractions using IMRT and IGRT. Signed by: Severo Dent MD cc: Kathie Sánchez, TANK BUILDER SUPERVISOR ([facility]) [address] [place] [address] Rufina Vora [address] [place] [address] documented in this encounter [facility] 09-11-2024 Note HNO ID: [id number] Author: Severo DENT MD Service: ? Author Type: Physician Type: Progress Notes Filed: 09/18/2024 12:03 Note Text: Radiation Oncology - Prostate Cancer Follow-up note PATIENT NAME: Mateo Stearns PATIENT DIAGNOSIS: Prostate adenocarcinoma, initial PSA 4.46, biopsy Brenden score 3 + 3 = 6 (grade group 1), clinical stage T1c, N0, M0, stage I [cT1a-c/T2a, N0, M0, PSA <10, GG 1] (AJCC 8th ed.), s/p TRUS Random biopsy. HPI: Patient in for follow-up to discuss treatment options again. Laboratory: [employer] genomic risk score: 0.43 (low risk) PSA. (no units) Date Value 09/07/2024 7.20 11/30/2023 4.22. 06/21/2024 6.8 Prior Radiation Therapy, Collagen Vascular Disease, or Inflammatory Bowel Disease: No Any implanted or external electric devices? No Currently on Anticoagulation: No History of Hip Replacement: No History of Prior TURP: No ALLERGIES No Known Allergies predniSONE (DELTASONE) 10 mg tablet Refills(s) 0 aspirin, enteric coated (ASPIRIN, ENTERIC COATED) 81 [...] Take 2 pills daily x 3 days (Patient not taking: Reported on 09/11/2024) PAST MEDICAL HISTORY Diagnosis Date Atrial fibrillation (HCC) COPD (chronic obstructive pulmonary disease) (HCC) Emphysema of lung (HCC) GERD (gastroesophageal reflux disease) PAST SURGICAL HISTORY Procedure Laterality Date ELBOW Left 1967 FOOT RIGHT OP SURGERY REVISE MEDIAN N/CARPAL TUNNEL SURG Left TOTAL HIP REPLACEMENT Bilateral FAMILY HISTORY Problem Relation Age of Onset COPD Father Social History Tobacco Use Smoking status: Former Current packs/day: 0.00 Average packs/day: 2.5 packs/day for 37.0 years (92.5 ttl pk-yrs) Types: Cigarettes Start date: 1979 Quit date: 2017 Years since quittin.8 Smokeless tobacco: Never Vaping Use Vaping status: Never Used Substance Use Topics Alcohol use: Not Currently [...] noted in HPI PHYSICAL EXAM: VS: BP 146/82 Pulse 80 Temp 36.6 ?C (97.8 ?F) Resp 18 Wt 68.1 kg (150 lb 2.1 oz) SpO2 94% BMI 23.51 kg/m? KARNOFSKY PERFORMANCE STATUS: 100 General Appearance: [...] State: Localized Cancer - New Diagnosis Patient states he does not want to pursue surgery or invasive procedures. Does not want to consider prostate brachytherapy. Does want to consider external beam treatment. Discussed both acute and potential long-term effects of all options. Again discussed watchful waiting. Will plan to proceed with definitive course of treatment, 70 Gy and 28 fractions using IMRT and IGRT. Signed by: Severo Dent MD cc: Kathie Sánchez TANK BUILDER SUPERVISOR ([facility]) [address] [place] [address] Rufina Vora [address] [place] [address] [facility] 09-11-2024 Nurse Note AUA= 3 [facility] 09-11-2024 Nurse Note AUA= 3 documented in this encounter [facility] 09-11-2024 Note Education (RADTSA) MATEO STEARNS ([id number]) 1960 M Date Time Provider Department 09/11/24 DAYANNA CALL Reason for Visit: Patient Education [91] Visit Notes: >> Dayanna Call LPN Tue Sep 11, 2024 2:21 PM Status: Signed Radiation Therapy - Patient Education Note PATIENT NAME: Mateo Stearns PATIENT September 11, 2024 [facility] [place]/LOCATION: [facility] READINESS TO LEARN Cognitive Ability: Alert and oriented Motivation to learn: Interested Family Support: unable to assess. Alia is currently raising his 5 year old [...] need for social work, van service, and silk worker. Was PED reviewed? No Patient has an [...] Encounter Status:Closed by DAYANNA CALL on 09/11/24 [facility] 07-12-2024 History of Present illness Narrative Radiation Oncology - Prostate Cancer [...] No date: COPD (chronic obstructive pulmonary disease) ([facility]) No date: Emphysema of lung ([facility]) No date: GERD (gastroesophageal [...] ASSESSMENT/PLAN: Prostate adenocarcinoma, initial PSA 4.46, biopsy [place] score 3 + 3 = 6 (grade [...] 2 to 3 months. Signed by: Severo Dent MD cc: Kathie Sánchez, TANK BUILDER SUPERVISOR ([facility]) [address] [place] [address] Rufina Vora [address] [place] [address] documented in this encounter [facility] 07-12-2024 Note HNO ID: [id number] Author: Severo DENT MD Service: ? Author Type: Physician Type: [...] 2 to 3 months. Signed by: Severo Dent MD cc: Kathie Sánchez, TANK BUILDER SUPERVISOR ([facility]) [address] [place] [address] Rufina Vora [address] [place] [address] [facility] 06-21-2024 Note HNO ID: [id number] Author: Severo DENT MD Service: ? Author Type: Physician Type: Progress Notes Filed: 06/21/2024 13:50 Note Text: Radiation Oncology - Prostate Cancer New Patient/Consult Note PATIENT NAME: Mateo Stearns PATIENT REQUESTING PROVIDER: Dr. Vora DIAGNOSIS: 63 year old male with prostate [...] with elevated PSA and prostate biopsy demonstrating [place] 6 adenocarcinoma in 2 cores. (Left lateral base and left base) He was placed on active surveillance. PSA 11/30/2023 was 4.22. He underwent repeat prostate biopsy on 05/01/2024 with the finding of adenocarcinoma, [place] 6 (3+3) from left lateral base, left [...] Chest: No respir (more content not included)... [facility] 06-21-2024 History of Present illness Narrative Radiation Oncology - Prostate Cancer New Patient/Consult Note PATIENT NAME: Mateo Stearns PATIENT REQUESTING PROVIDER: Dr. Vora DIAGNOSIS: 63 year old male with prostate adenocarcinoma, initial PSA 4.46, biopsy [place] score 3 + 3 = 6 (grade [...] on 05/01/2024 with the finding of adenocarcinoma, [place] 6 (3+3) from left lateral base, left [...] him back after this. Signed by: Severo Dent MD cc: Kathie Sánchez, TANK BUILDER SUPERVISOR ([facility]) [address] [place] [address] Rufina Vora [address] [place] [address] documented in this encounter [facility] 06-21-2024 Nurse Note Pacemaker/Defibrillator?N Previous Cancer(s)?N Previous Radiation?N Lupus/Scleroderma?N On body monitoring device?N AUA= 5 [facility] 06-21-2024 Nurse Note Pacemaker/Defibrillator?N Previous Cancer(s)?N Previous Radiation?N Lupus/Scleroderma?N On body monitoring device?N AUA= 5 documented in this encounter [facility] 06-01-2024 Note HNO ID: [id number] Author: AMANDEEP CRISOSTOMO MD Service: ? Author Type: Physician Type: Progress Notes Filed: 06/24/2024 16:18 Note Text: Referring Provider: Chief Complaint: Recently diagnosed CaP HPI: 63 year old male from [place], [place] with a PMHx of COPD (40 [...] a biopsy with 8/18 cores positive for [place] 6 disease. Past surgical Hx: total hip [...] or weakness, headaches and dizziness or syncope. HEMATOLOGIC/LYMPHATIC/IMMUNOLOGIC :Negative for prolonged bleeding, bruising easily or swollen [...] review Assessment 63 year old male from [place], [place] with a PMHx of COPD (40 pack-year smoker and poor oxygenation status), Afib (on ASA), and GERD diagnosed with CAP in 05/20 which showed 2 cores of [place] 6 disease. Recently had more + cores on a repeat biopsy and is here to discuss treatment options. He currently has low risk disease. We discussed the treatment options which include continued active surveillance, RARP, and XRT including EBRT or brachytherapy. Given patient's COPD status he may not be best candidate for surgery an (more content not included)... [facility] 06-01-2024 History of Present illness Narrative Referring Provider: Chief Complaint: Recently diagnosed CaP HPI: 63 year old male from [place], [place] with a PMHx of COPD (40 [...] or weakness, headaches and dizziness or syncope. HEMATOLOGIC/LYMPHATIC/IMMUNOLOGIC :Negative for prolonged bleeding, bruising easily or swollen [...] review Assessment 63 year old male from [place], [place] with a PMHx of COPD (40 [...] Amandeep Crisostomo MD documented in this encounter [facility] 06-01-2024 Note Patient Outreach (UR OLMN) MATEO STEARNS ([id number]) 1960 M Date Time Provider Department 06/01/24 AMANDEEP CRISOSTOMO During your visit today, we recorded the following information about you: Allergies As of Date: 06/01/2024 (No Known Allergies) Date Reviewed: 06/01/2024 Reviewed by: Garrett Davis MA - Fully Assessed Visit Diagnosis:Screening for genitourinary condition [Z13.89] Order(s):URINALYSIS, REFLEX MICROSCOPIC [[id number]] Order #: [id number]. #:[id number] Prescriptions as of 06/04/2024 - aspirin, enteric [...] Encounter Status:Closed by NESHA DOYLE on 06/04/24 [facility] 05-21-2024 Hospital Discharge instructions Patient Education 05/21/2024 12:39:10 Prostate Cancer [...] stress of having cancer. General instructions Take chla-fff-bssxiyc and prescription medicines only as told by your health care provider. If you have to go to the hospital, notify your cancer specialist (oncologist). Keep all follow-up visits. This is important. Where to find more information [employer] Cancer Society: www.cancer.org [place] Society of Clinical Oncology: www.cancer.net National Cancer [place]: www.cancer.gov Contact a health care provider if: [...] provider. Document Revised: 02/10/2022 Document Reviewed: 02/10/2022 [employer] Patient Education 2022 [employer]. Follow Up Care 01/02/2024 13:58:04 With:DIONY CHANDLER, HIRAM MarcelinoL Address: [facility] [address] [place] [address]- [phone] When: Unknown [facility] [place] 05-01-2024 Hospital Discharge instructions Patient Education 05/01/2024 11:59:06 EU - [...] for your post-operative appointment in 1-2 weeks [phone] or [phone] Follow Up Care 03/15/2024 14:41:59 With:Rufina VORA Address: [address] [place] [id number]- Business (1) When: Unknown Comments:Keep scheduled appointment [facility] 05-01-2024 Note [id number] [facility] 06-06-2023 Hospital Discharge instructions Patient Education 06/06/2023 11:47:03 Prostate Cancer [...] the likelihood that the cancer will spread. [place] 6 or lower: This indicates that the cancer cells look similar to normal prostate cells (well differentiated). [place] 7: This indicates that the cancer cells look somewhat similar to normal prostate cells (moderately differentiated). [place] 8, 9, or 10: This indicates that [...] stress of having cancer. General instructions Take foun-dga-vpwwqmf and prescription medicines only as told by your health care provider. If you have to go to the hospital, notify your cancer specialist (oncologist). Keep all follow-up visits. This is important. Where to find more information [employer] Cancer Society: www.cancer.org [place] Society of Clinical Oncology: www.cancer.net National Cancer [place]: www.cancer.gov Contact a health care provider if: [...] provider. Document Revised: 02/10/2022 Document Reviewed: 02/10/2022 [employer] Patient Education 2022 [employer]. Follow Up Care 04/27/2023 15:15:09 With:DIONY CHANDLER, Rufina Reina, URL Address: [facility] [address] , [place] [phone] When:Within 6 Month(s) Comments:PSA and ANNE-MARIE [facility] [place] 05-17-2023 Hospital Discharge instructions Patient Education 05/17/2023 11:13:15 EU - [...] for your post-operative appointment in 1-2 weeks [phone] or [phone] Follow Up Care 04/27/2023 15:25:07 With:Rufina VORA Address: [facility] [address] , [place] [address]- [facility] (1) When: Unknown Comments:Keep scheduled appointment [facility] 02-07-2023 Hospital Discharge instructions Patient Education 02/07/2023 08:26:26 Cancer Screening [...] if anything looks unusual. Men with a nouarw-dphl-xkyhrk risk for skin cancer may want to see a event specialist food demonstrator (collar turner) for an annual body check. Where to find more information National Cancer [place]: https://www.cancer.gov/about-canc er/screening Centers for Disease Control and Prevention: https://www.cdc.gov/cancer/dcpc/p revention/screening.htm [place] Cancer Society: https://www.cancer.org/latest-new s/5-abiaod-kphzlrbpm-dukji-yft-kq n.html Contact a health care provider if: You [...] 08/11/2017 Document Revised: 08/03/2019 Document Reviewed: 08/11/2017 [employer] Patient Education 2020 [employer] Follow Up Care 12/10/2022 10:33:39 With:DIONY CHANDLER, Rufina Reina, URL Address: [facility] [address], [place] [address]- When: Unknown [facility] 05-17-2022 Hospital Discharge instructions Patient Education 05/17/2022 13:40:29 Epidermal Cyst, Hjdr-gs-Syra Epidermal Cyst An epidermal cyst is a [...] yourself. Follow these instructions at home: Take tbbb-tdc-cuymqbb and prescription medicines only as told by [...] the cyst, or to remove it. Take omrd-kny-rsipzen and prescription medicines only as told by [...] 12/22/2005 Document Revised: 03/06/2020 Document Reviewed: 08/23/2019 [employer] Patient Education 2019 [employer] 04/19/2022 08:23:29 Testicular Self-Exam Testicular Self-Exam [...] 02/20/2002 Document Revised: 03/06/2020 Document Reviewed: 10/10/2017 [employer] Patient Education 2020 [employer] Follow Up Care 03/17/2022 10:53:14 With:Rufina VORA MD, URL Address: [facility] [address], [place] [address]- When: Unknown [facility] Evaluation + Plan note Future Appointments Appointment Date:06/08/2022 08:45:00 AM Scheduled Provider: Location:[facility] Appointment Type:Urology CALL PAT FT Appointment Date:06/15/2022 09:00:00 AM Scheduled Provider: Location:[facility] Appointment Type:Urology FT [facility] Evaluation + Plan note Future Appointments Appointment Date:08/23/2022 12:30:00 PM Scheduled Provider:Rufina VORA MD Location:[facility] Appointment Type:URO Office Visit [facility] Evaluation + Plan note Future Appointments Appointment Date:06/06/2023 09:45:00 AM Scheduled Provider:Rufina VORA MD Location:[facility] Appointment Type:URO Office Visit Diagnostic Tests PendingProstate Histology ([facility]) 05/17/23 [facility] Evaluation + Plan note Future Appointments Appointment Date:12/09/2023 10:45:00 AM Scheduled Provider:Rufina VORA MD Location:[facility] Appointment Type:URO Office Visit Diagnostic Tests PendingPSA Total 06/06/23 [facility] Evaluation + Plan note Future Appointments Appointment Date:05/21/2024 11:30:00 AM Scheduled Provider:[facility]uf[facility]A [facility] Office Visit Diagnostic Tests PendingProstate Histology ([facility]) 05/01/24 [facility] Evaluation + Plan note [facility] Evaluation note No Assessments Infor mation Available [facility] Evaluation note Diagnosis Screening for genitourinary condition Screening for other and unspecified genitourinary condition [facility] Diagnosis Malignant neoplasm of prostate (HCC)- Primary Malignant neoplasm of prostate [facility] Diagnosis Prostate cancer (HCC)- Primary Malignant neoplasm of prostate [facility] Diagnosis Malignant neoplasm of prostate (HCC)- Primary Malignant neoplasm of prostate [facility] Diagnosis Encounter for subsequent annual wellness visit (AWV) in Medicare patient- Primary Chronic obstructive pulmonary disease, unspecified COPD type (CMS/HCC) Paroxysmal atrial fibrillation (CMS/HCC) Atrial fibrillation Chronic GERD Chronic gout without tophus, unspecified cause, unspecified site Mixed hyperlipidemia (CMS/HCC) Mixed hyperlipidemia DDD (degenerative disc disease), cervical- Primary Degeneration of cervical intervertebral disc Other thrombophilia (CMS/HCC) Chronic respiratory failure with hypoxia (CMS/HCC) Abdominal aortic aneurysm, without rupture, unspecified (CMS/HCC) Thoracic aortic aneurysm, without rupture, unspecified (CMS/HCC) Atherosclerosis of aorta (CMS/HCC) Atherosclerosis of aorta Other chronic pain [facility] Malignant neoplasm of prostate (HCC)- Primary Malignant neoplasm of prostate [facility] Diagnosis Malignant neoplasm of prostate (HCC)- Primary Malignant neoplasm of prostate [facility] Diagnosis Malignant neoplasm of prostate (HCC)- Primary Malignant neoplasm of prostate documented in this encounter [facility] ClinicEvaluation note* Diagnosis Malignant neoplasm of prostate (HCC)- Primary Malignant neoplasm of prostate [facility] Diagnosis Malignant neoplasm of prostate (HCC)- Primary Malignant neoplasm of prostate [facility] Diagnosis Malignant neoplasm of prostate (HCC) Malignant neoplasm of prostate [facility] Diagnosis Malignant neoplasm of prostate (HCC)- Primary Malignant neoplasm of prostate [facility] Diagnosis Malignant neoplasm of prostate (HCC) Malignant neoplasm of prostate [facility] Diagnosis Malignant neoplasm of prostate (HCC)- Primary Malignant neoplasm of prostate [facility] Diagnosis Encounter for subsequent annual wellness visit (AWV) in Medicare patient- Primary Chronic obstructive pulmonary disease, unspecified COPD type (CMS/HCC) Paroxysmal atrial fibrillation (CMS/HCC) Atrial fibrillation Chronic GERD Chronic gout without tophus, unspecified cause, unspecified site Mixed hyperlipidemia (CMS/HCC) Mixed hyperlipidemia DDD (degenerative disc disease), cervical- Primary Degeneration of cervical intervertebral disc Other thrombophilia (CMS/HCC) Chronic respiratory failure with hypoxia (CMS/HCC) Abdominal aortic aneurysm, without rupture, unspecified (CMS/HCC) Thoracic aortic aneurysm, without rupture, unspecified (CMS/HCC) Atherosclerosis of aorta (CMS/HCC) Atherosclerosis of aorta Other chronic pain DDD (degenerative disc disease), cervical- Primary Degeneration of cervical intervertebral disc Atrial fibrillation (CMS/HCC) Atrial fibrillation Gastro-esophageal reflux disease without esophagitis Prostate cancer (CMS/HCC) Malignant neoplasm of prostate documented in this encounter [facility]* Diagnosis Malignant neoplasm of prostate (HCC)- Primary Malignant neoplasm of prostate [facility] Diagnosis Malignant neoplasm of prostate (HCC)- Primary Malignant neoplasm of prostate [facility] Narrative No data available for this section [facility] Hospital Discharge instructions No data available for this section [facility] No data available for this section [facility] reason for referral (narrative) Referred by: Rufina VORA MD [facility] Summary Purpose Family History No Family [...] Directives Records FoundNo Advanced Directives Records Found Reason for Referral Specialty Diagnoses / Procedures Referred By Contac t Referred To Contact Diagnoses Malignant neoplasm of prostate (HCC) Procedures CT SIM PLANNING RADIATION ONCOLOGY THER RAD 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 Severo Dent MD [address] [place] [address] [place] [address] Referral ID Status Reason Start Date Expiration Date Visits Requested Visits Authorized [id number] New Request PCP Requested Referral 4 12/16/2024 1 1 Additional Source Comments (unrecognized sect ion and content) No Status Records FoundNo Status Records FoundNo Status Records FoundNo Status Records FoundNo Status Records FoundNo Status Records Found INFORMATION SOURCE (unrecogn ized section and content) DATE CREATED AUTHOR 04/01/2021 [facility] DATE CREATED AUTHOR AUTHOR'S ORGANIZ ATION 04/13/2023 [facility] DATE CREATED AUTHOR AUTHOR'S ORGANIZ ATION 05/18/2024 [facility] DATE CREATED AUTHOR AUTHOR'S ORGANIZ ATION 05/22/2024 [facility] DATE CREATED AUTHOR AUTHOR'S ORGANIZ ATION 10/18/2024 [facility] dical Specialists [facility] DATE CREATED AUTHOR AUTHOR'S ORGANIZ ATION 11/27/2024 [facility] Care Team (unrecognized sect ion and content) Industrial Management Teacher Relationship Specialty Start Date End Date Curt De Dios MD [address] [place] [phone] PCP - General Family Medicine 11/11/23 Kathie Sánchez, CHECK PILOT [address] [place] [address] Nurse Practitioner Family Medicine 10/03/23 Industrial Management Teacher Relationship Specialty Start Date End Date Peter Bhat DO PCP - General Family Medicine 05/11/13 Industrial Management Teacher Relationship Specialty Start Date End Date Kathie Sánchez TANK BUILDER SUPERVISOR [address], [place] [id number] PCP - General Family Medicine 06/21/24 Industrial Management Teacher Relationship Specialty Start Date End Date Peter Bhat PCP - General Family Medicine 05/11/13 06/20/24 Industrial Management Teacher Relationship Specialty Start Date End Date Kathie Sánchez, TANK BUILDER SUPERVISOR [address] [place] [address] PCP - General Family Medicine 06/21/24 Industrial Management Teacher Relationship Specialty Start Date End Date Kathie Sánchez NP [address] [place] [phone] PCP - [facility] 12/29/23 Curt De Dios MD [address] [place] [phone] PCP - General Family Medicine 02/28/24 Kathie Sánchez NP [address] [place] [phone] Nurse Practitioner Family Medicine 10/03/23 Kathie Sánchez NP [address] [place] [phone] Nurse Practitioner Family Medicine 02/28/24 Industrial Management Teacher Relationship Specialty Start Date End Date Kathie Sánchez, TANK BUILDER SUPERVISOR [address] [place] [address] PCP - General Family Medicine 06/21/24 Industrial Management Teacher Relationship Specialty Start Date End Date Kathie Sánchez NP [address] [place] [address] PCP - [facility] 12/29/23 Curt De Dios MD [address] [place] [address] PCP - General Family Medicine 02/28/24 Kathie Sánchez NP [address] [place] [address] Nurse Practitioner Family Medicine 10/03/23 Kathie Sánchez NP [address] [place] [address] Nurse Practitioner Family Medicine 02/28/24 Industrial Management Teacher Relationship Specialty Start Date End Date Kathie Sánchez NP [address] [place] [address] PCP - [facility] 12/29/23 Curt De Dios MD [address] [place] [address] PCP - General Family Medicine 02/28/24 Kathie Sánchez NP [address] [place] [address] Nurse Practitioner Family Medicine 10/03/23 Kathie Sánchez NP [address] [place] [address] Nurse Practitioner Family Medicine 02/28/24 Industrial Management Teacher Relationship Specialty Start Date End Date Kathie Sánchez CNP [address] [place] [address] PCP - General Family Medicine 06/21/24 Industrial Management Teacher Relationship Specialty Start Date End Date Kathie Sánchez CNP [address] [place] [address] PCP - General Family Medicine 06/21/24 Industrial Management Teacher Relationship Specialty Start Date End Date Kathie Sánchez CNP [address] [place] [address] PCP - General Family Medicine 06/21/24 Umu Nicolas, SAFETY BELT INSTALLER Flight Surveyor 09/18/24 Industrial Management Teacher Relationship Specialty Start Date End Date Kathie Sánchez CNP [address] [place] [address] PCP - General Family Medicine 06/21/24 Umu Nicolas, SAFETY BELT INSTALLER Flight Surveyor 09/18/24 Industrial Management Teacher Relationship Specialty Start Date End Date Kathie Sánchez CNP [address] [place] [address] PCP - General Family Medicine 06/21/24 Umu Nicolas, SAFETY BELT INSTALLER Flight Surveyor 09/18/24 Industrial Management Teacher Relationship Specialty Start Date End Date Kathie Sánchez CNP [address] [place] [address] PCP - General Family Medicine 06/21/24 Umu Nicolas, SAFETY BELT INSTALLER Flight Surveyor 09/18/24 Industrial Management Teacher Relationship Specialty Start Date End Date Kathie Sánchez TANK BUILDER SUPERVISOR [address] [place] [address] PCP - General Family Medicine 06/21/24 Umu Nicolas, SAFETY BELT INSTALLER Flight Surveyor 09/18/24 Industrial Management Teacher Relationship Specialty Start Date End Date Kathie Sánchez TANK BUILDER SUPERVISOR [address] [place] [address] PCP - General Family Medicine 06/21/24 Umu Nicolas, SAFETY BELT INSTALLER Flight Surveyor 09/18/24 Industrial Management Teacher Relationship Specialty Start Date End Date Kathie Sánchez CNP [address] [place] [address] PCP - General Family Medicine 06/21/24 Umu Nicolas, SAFETY BELT INSTALLER Flight Surveyor 09/18/24 Industrial Management Teacher Relationship Specialty Start Date End Date Kathie Sánchez TANK BUILDER SUPERVISOR [address] [place] [address] PCP - General Family Medicine 06/21/24 Umu Nicolas, SAFETY BELT INSTALLER Flight Surveyor 09/18/24 Industrial Management Teacher Relationship Specialty Start Date End Date Kathie Sánchez NP [address] [place] [phone] PCP - [facility] 12/29/23 Curt De Dios MD [address] [place] [address] PCP - General Family Medicine 02/28/24 Kathie Sánchez NP [address] [place] [address] Nurse Practitioner Family Medicine 10/03/23 Kathie Sánchez NP [address] [place] [address] Nurse Practitioner Family Medicine 02/28/24 Industrial Management Teacher Relationship Specialty Start Date End Date Kathie Sánchez CNP [address] [place] [address] PCP - General Family Medicine 06/21/24 Umu Nicolas LSW Flight Surveyor 09/18/24 Industrial Management Teacher Relationship Specialty Start Date End Date Kathie Sánchez CNP [address] [place] [address] PCP - General Family Medicine 06/21/24 Umu Nicolas LSW Flight Surveyor 09/18/24 Industrial Management Teacher Relationship Specialty Start Date End Date Kathie Sánchez CNP [address] [place] [address] PCP - General Family Medicine 06/21/24 Umu Nicolas LSW Flight Surveyor 09/18/24 Industrial Management Teacher Relationship Specialty Start Date End Date Kathie Sánchez NP [address] [place] [address] PCP - [facility] 12/29/23 Curt De Dios MD [address] [place] [address] PCP - General Family Medicine 02/28/24 Kathie Sánchez NP [address] [place] [address] Nurse Practitioner Family Medicine 10/03/23 Kathie Sánchez NP [address] [place] [address] Nurse Practitioner Family Medicine 02/28/24 Industrial Management Teacher Relationship Specialty Start Date End Date Kathie Sánchez NP [address] [place] [address] PCP - [facility] 12/29/23 Curt De Dios MD [address] [place] [address] PCP - General Family Medicine 02/28/24 Kathie Sánchez NP [address] [place] [address] Nurse Practitioner Family Medicine 10/03/23 Kathie Sánchez NP [address] [place] [address] Nurse Practitioner Family Medicine 02/28/24 Industrial Management Teacher Relationship Specialty Start Date End Date Kathie Sánchez NP [address] [place] [address] PCP - [facility] 12/29/23 Curt De Dios MD [address] [place] [address] PCP - General Family Medicine 02/28/24 Kathie Sánchez NP [address] [place] [address] Nurse Practitioner Family Medicine 10/03/23 Kathie Sánchez NP [address] [place] [address] Nurse Practitioner Family Medicine 02/28/24 Industrial Management Teacher Relationship Specialty Start Date End Date Kathie Sánchez CNP [address] [place] [address] PCP - General Family Medicine 06/21/24 Umu Nicolas LSW Flight Surveyor 09/18/24 Industrial Management Teacher Relationship Specialty Start Date End Date Kathie Sánchez CNP [address] [place] [address] PCP - General Family Medicine 06/21/24 Umu Nicolas, SAFETY BELT INSTALLER Flight Surveyor 09/18/24 Industrial Management Teacher Relationship Specialty Start Date End Date Kathie Sánchez CNP [address] [place] [address] PCP - General Family Medicine 06/21/24 Umu Nicolas LSW Flight Surveyor 09/18/24 Industrial Management Teacher Relationship Specialty Start Date End Date Kathie Sánchez CNP [address] [place] [address] PCP - General Family Medicine 06/21/24 Umu Nicolas, SAFETY BELT INSTALLER Flight Surveyor 09/18/24 Industrial Management Teacher Relationship Specialty Start Date End Date Kathie Sánchez CNP [address] [place] [address] PCP - General Family Medicine 06/21/24 Umu Nicolas LSW Flight Surveyor 09/18/24 Source Comments (unrecognize d section and content) In the event this informatio n is protected by the Federal Confidentiality of Alcohol and Drug Abuse Patient Records regulations: The Federal rules restrict any use of the information to criminally investigate or prosecute any alcohol or drug abuse patient.[facility] the event this information is protected by the Federal Confidentiality of Alcohol and Drug Abuse Patient Records regulations: The Federal rules restrict any use of the information to criminally investigate or prosecute any alcohol or drug abuse patient.[facility] the event this information is protected by the Federal Confidentiality of Alcohol and Drug Abuse Patient Records regulations: The Federal rules restrict any use of the information to criminally investigate or prosecute any alcohol or drug abuse patient.[facility] the event this information is protected by the Federal Confidentiality of Alcohol and Drug Abuse Patient Records regulations: The Federal rules restrict any use of the information to criminally investigate or prosecute any alcohol or drug abuse patient.[facility] the event this information is protected by the Federal Confidentiality of Alcohol and Drug Abuse Patient Records regulations: The Federal rules restrict any use of the information to criminally investigate or prosecute any alcohol or drug abuse patient.[facility] the event this information is protected by the Federal Confidentiality of Alcohol and Drug Abuse Patient Records regulations: The Federal rules restrict any use of the information to criminally investigate or prosecute any alcohol or drug abuse patient.[facility] Hospital[facility] the event this information is protected by the Federal Confidentiality of Alcohol and Drug Abuse Patient Records regulations: The Federal rules restrict any use of the information to criminally investigate or prosecute any alcohol or drug abuse patient.[facility] HospitalIn the event this information is protected by the Federal Confidentiality of Alcohol and Drug Abuse Patient Records regulations: The Federal rules restrict any use of the information to criminally investigate or prosecute any alcohol or drug abuse patient.[facility] Hospital[facility] the event this information is protected by the Federal Confidentiality of Alcohol and Drug Abuse Patient Records regulations: The Federal rules restrict any use of the information to criminally investigate or prosecute any alcohol or drug abuse patient.[facility] HospitalIn the event this information is protected by the Federal Confidentiality of Alcohol and Drug Abuse Patient Records regulations: The Federal rules restrict any use of the information to criminally investigate or prosecute any alcohol or drug abuse patient.[facility] Hospital[facility] the event this information is protected by the Federal Confidentiality of Alcohol and Drug Abuse Patient Records regulations: The Federal rules restrict any use of the information to criminally investigate or prosecute any alcohol or drug abuse patient.[facility] Hospital[facility] the event this information is protected by the Federal Confidentiality of Alcohol and Drug Abuse Patient Records regulations: The Federal rules restrict any use of the information to criminally investigate or prosecute any alcohol or drug abuse patient.[facility] HospitalIn the event this information is protected by the Federal Confidentiality of Alcohol and Drug Abuse Patient Records regulations: The Federal rules restrict any use of the information to criminally investigate or prosecute any alcohol or drug abuse patient.[facility] HospitalIn the event this information is protected by the Federal Confidentiality of Alcohol and Drug Abuse Patient Records regulations: The Federal rules restrict any use of the information to criminally investigate or prosecute any alcohol or drug abuse patient.[facility] Hospital[facility] the event this information is protected by the Federal Confidentiality of Alcohol and Drug Abuse Patient Records regulations: The Federal rules restrict any use of the information to criminally investigate or prosecute any alcohol or drug abuse patient.[facility] HospitalIn the event this information is protected by the Federal Confidentiality of Alcohol and Drug Abuse Patient Records regulations: The Federal rules restrict any use of the information to criminally investigate or prosecute any alcohol or drug abuse patient.[facility] HospitalIn the event this information is protected by the Federal Confidentiality of Alcohol and Drug Abuse Patient Records regulations: The Federal rules restrict any use of the information to criminally investigate or prosecute any alcohol or drug abuse patient.[facility] HospitalIn the event this information is protected by the Federal Confidentiality of Alcohol and Drug Abuse Patient Records regulations: The Federal rules restrict any use of the information to criminally investigate or prosecute any alcohol or drug abuse patient.[facility] HospitalIn the event this information is protected by the Federal Confidentiality of Alcohol and Drug Abuse Patient Records regulations: The Federal rules restrict any use of the information to criminally investigate or prosecute any alcohol or drug abuse patient.[facility] HospitalIn the event this information is protected by the Federal Confidentiality of Alcohol and Drug Abuse Patient Records regulations: The Federal rules restrict any use of the information to criminally investigate or prosecute any alcohol or drug abuse patient.[facility] HospitalIn the event this information is protected by the Federal Confidentiality of Alcohol and Drug Abuse Patient Records regulations: The Federal rules restrict any use of the information to criminally investigate or prosecute any alcohol or drug abuse patient.[facility] HospitalIn the event this information is protected by the Federal Confidentiality of Alcohol and Drug Abuse Patient Records regulations: The Federal rules restrict any use of the information to criminally investigate or prosecute any alcohol or drug abuse patient.[facility] HospitalIn the event this information is protected by the Federal Confidentiality of Alcohol and Drug Abuse Patient Records regulations: The Federal rules restrict any use of the information to criminally investigate or prosecute any alcohol or drug abuse patient.[facility] HospitalIn the event this information is protected by the Federal Confidentiality of Alcohol and Drug Abuse Patient Records regulations: The Federal rules restrict any use of the information to criminally investigate or prosecute any alcohol or drug abuse patient.[facility] HospitalIn the event this information is protected by the Federal Confidentiality of Alcohol and Drug Abuse Patient Records regulations: The Federal rules restrict any use of the information to criminally investigate or prosecute any alcohol or drug abuse patient.[facility] Reason for Visit (unrecogniz ed section and content) Reason Comments Consult Reason Comments New Patient Elevated PSA Reason Comments Prostate Cancer Reason Comments Patient Education Reason Comments Financial Questions Reason Onset Date Comments Simulation Request Form 09/17/2024 Reason Comments Orders CBC Reason Comments Radiotherapy On-treatment Visit FOR RECORDS PERTAINING TO PATIENTS WHO ARE [...] BE BASED ON THE PRIMARY CLINICAL RECORDS. [facility]. provides no warranty or guarantee of the accuracy or completeness of information in this document.
[2024-11-28 13:46] VITALS: BP 109/76; PULSE 91; TEMP 37.2; O2SAT 92; BMI 23.2
--- NOTE | 2024-11-28 13:57 | XR_ITS ---
[address] [address] Patient Name: MATEO STEARNS MRN: [id number] date: 1960 Sex: M Assigned Patient Location: ER Current Patient Location: ER Accession/Order Number: [id number] Exam Date: 11/28/2024 14:02 Report Date: 11/28/2024 15:01 At the request of: REANNA JEAN Procedure: XR chest 2V EXAM: XR chest 2V INDICATION: SOB. COMPARISON: Chest x-ray 08/12/2022. TECHNIQUE: Two views of the chest FINDINGS: Normal cardiomediastinal contours. Normal pulmonary vasculature. Emphysema. No acute infiltrate. Right midlung linear scarring. No pleural effusion or pneumothorax. No acute osseous abnormality. XR/XR chest 2V IMPRESSION: No acute cardiopulmonary process. Electronically authenticated by: NICOLE JAMES Date: 11/28/2024 15:01
--- NOTE | 2024-11-28 14:54 | ECG_ITS ---
[facility] Test Date: 2024-11-28 Pat Name: MATEO STEARNS Department: Room: - Gender: Male Plasma Processor: : 1960 Requested By: [id number] Order Number: [id number] Reading MD: DOYLE LOMELI Measurements Intervals [place] Rate: 97 P: 77 MA: 132 QRS: 83 QRSD: 78 T: 90 QT: 320 QTc: 375 Interpretive Statements 1100 Sinus rhythm 4068 Nonspecific [place] abnormality 9130 borderline ECG Compared to ECG 01/05/2024 16:40:34 No significant changes Electronically Signed On 12-01-2024 8:07:28 EST by DOYLE LOMELI
--- NOTE | 2024-11-28 14:55 | ED.URI1 ---
HPI - URI/Sore Throat General Chief Complaint: Upper Respiratory Infection Stated Complaint: SOB, CONGESTED, COUGH Time Seen by Provider: 11/28/24 14:49 Source: patient Limitations: no limitations History of Present Illness HPI Narrative: Patient is a 64-year-old male with a history of COPD who presents to the emergency department for difficulty breathing last night, he states he is feeling better this morning but is still having bodyaches and productive cough. He is concerned he may have pneumonia. He was seen in this emergency department 1 year ago and diagnosed with right-sided pneumonia. He states he feels the same as he did previously. He has had no objective fevers or hemoptysis. He denies chest pain. He is supposed to wear oxygen at nighttime, he states he typically only uses it as needed, last night he was feeling more short of breath and weak and did use his oxygen by nasal cannula. He is a former smoker. Related Data Home Medications ?Medication ?Instructions ?Recorded ?Confirmed albuterol sulfate 90 mcg/actuation 1 inh inhalation Q4H PRN shortness 01/05/24 11/28/24 aerosol inhaler of breath or wheezing aspirin 81 mg tablet,delayed 81 mg PO DAILY 01/05/24 11/28/24 release budesonide-formoterol HFA 160 2 puff inhalation BID 01/05/24 11/28/24 mcg-4.5 mcg/actuation aerosol inhaler diltiazem HCl 180 mg 180 mg PO DAILY 01/05/24 11/28/24 capsule,extended release 24 hr, controlled pantoprazole 40 mg tablet,delayed 40 mg PO DAILY 01/05/24 11/28/24 release prednisone 10 mg tablet 10 mg PO DAILY 01/05/24 11/28/24 roflumilast 500 mcg tablet 500 mcg PO DAILY 01/05/24 11/28/24 tiotropium bromide 2.5 2 inh inhalation DAILY PRN 01/05/24 11/28/24 mcg/actuation mist for inhalation shortness of breath (Spiriva Respimat) Previous Rx's ?Medication ?Instructions ?Recorded albuterol sulfate 2.5 mg/3 mL 2.5 mg (3 mL) inhalation Q6H PRN 11/28/24 (0.083 %) solution for nebulization shortness of breath or wheezing #90 mL doxycycline hyclate 100 mg tablet 100 mg PO BID 10 days #20 tabs 11/28/24 methylprednisolone 4 mg tablets in See Rx Instructions .Route 11/28/24 a dose pack (Medrol (Blas)) .COMPLEX #21 ea Allergies Allergy/AdvReac Type Severity Reaction Status Date / Time No Known Drug Allergies Allergy Verified 11/28/24 13:53 Review of Systems ROS Constitutional Denies: fever or chills Ears, nose, mouth, and throat Denies: throat pain or nasal congestion Cardiovascular Denies: chest pain Respiratory Reports: shortness of breath, cough, wheezing and change in phlegm color; Denies: coughing up blood Gastrointestinal Denies: nausea, vomiting or diarrhea Musculoskeletal Denies: back pain Integumentary/Breast Denies: rash Neurological Denies: numbness in extremities or weakness in extremities Hematologic/Lymphatic Denies: easy bruising or easy bleeding PFSH PFSH Social History Little interest or pleasure in doing things: not at all Feeling down, depressed, or hopeless: not at all Exam Narrative Exam Narrative: Gen.: Awake, alert, in no distress Head: Normocephalic, atraumatic ENT: Moist mucous membranes Respiratory: No respiratory distress, speaks in full sentences, scattered expiratory rhonchi Cardio: Regular rate and rhythm Extremities: Moves extremities equally Psych: Normal mood and affect Neuro: No focal neuro deficit Skin: Warm, dry, intact Constitutional Vital Signs, click to edit/add: Last Vital Signs Temp 99 F 11/28/24 13:46 Pulse 96 H 11/28/24 15:11 Resp 11/28/24 13:46 BP 109/76 11/28/24 13:46 Pulse Ox 95 11/28/24 15:11 O2 Del Method Room Air 11/28/24 15:11 Course Vital Signs Vital signs: Vital Signs Temperature 99 F 11/28/24 13:46 Pulse Rate 91 H 11/28/24 13:46 Respiratory Rate 11/28/24 13:46 Blood Pressure 109/76 11/28/24 13:46 Pulse Oximetry 92 L 11/28/24 13:46 Temperature 99 F 11/28/24 13:46 Pulse Rate 96 H 11/28/24 15:11 Respiratory Rate 11/28/24 13:46 Blood Pressure 109/76 11/28/24 13:46 Pulse Oximetry 95 11/28/24 15:11 Oxygen Delivery Method Room Air 11/28/24 15:11 MDM - URI/Sore Throat MDM Narrative Medical decision making narrative: Patient declined IV placement and labs. He states he is essentially just coming to the emergency department to make sure he does not have pneumonia. He has as needed oxygen as needed at home. He was given oral prednisone as he declined Solu-Medrol. Breathing treatment given in the ER. He should continue breathing treatments at home, he will be placed on an antibiotic and steroid taper. Follow-up with PCP and return to the emergency department if symptoms change or worsen. SUPERVISED APC VISIT, PHYSICIAN ATTESTATION: Based on the medical record the care appears appropriate. ? Medical Records Attestation: I reviewed the patient's medical records. Lab Data Attestation: I reviewed the patient's lab results. Labs: Lab Results 11/28/24 Range/Units 13:56 Influenza Type A Ag Negative Influenza Type B Ag Negative SARS-CoV-2 Ag (CV2AG) Negative (NEGATIVE) Imaging Data Chest x-ray: Attestation: I have reviewed the pertinent imaging results. Radiologist's impression: ITS Impressions Chest X-Ray 11/28/24 13:57 IMPRESSION: No acute cardiopulmonary process. Electronically authenticated by: NICOLE JAMES Date: 11/28/2024 15:01 Discharge Plan Discharge Chief Complaint: Upper Respiratory Infection Clinical Impression: Acute infective exacerbation of chronic obstructive airway disease, Upper respiratory infection Patient Disposition: Home, Self-Care Time of Disposition Decision: 16:07 Condition: Good Prescriptions / Home Meds: New albuterol sulfate 2.5 mg /3 mL (0.083 %) solution for nebulization 2.5 mg inhalation Q6H PRN (Reason: shortness of breath or wheezing) Qty: 90 0RF methylprednisolone [Medrol (Blas)] 4 mg tablets,dose pack See Rx Instructions .ROUTE .COMPLEX Qty: 21 0RF Rx Instructions: Taper as directed doxycycline hyclate 100 mg tablet 100 mg PO BID 10 Days Qty: 20 0RF No Action albuterol sulfate 90 mcg/actuation HFA aerosol inhaler 1 inh INHALATION Q4H PRN (Reason: shortness of breath or wheezing) aspirin 81 mg tablet,delayed release (DR/EC) 81 mg PO DAILY budesonide-formoterol 160-4.5 mcg/actuation HFA aerosol inhaler 2 puff INHALATION BID diltiazem HCl 180 mg capsule,ext.rel 24h degradable 180 mg PO DAILY pantoprazole 40 mg tablet,delayed release (DR/EC) 40 mg PO DAILY prednisone 10 mg tablet 10 mg PO DAILY roflumilast 500 mcg tablet 500 mcg PO DAILY Spiriva Respimat 2.5 mcg/actuation mist 2 inh INHALATION DAILY PRN (Reason: shortness of breath) Print Language: Malaysian Instructions: Upper Respiratory Infection (ED), COPD (Chronic Obstructive Pulmonary Disease) (ED) Referrals: Kathie Sánchez [employer] [Primary Care Provider] - 1 week
[2024-11-28] MEDS: ALBUTEROL SULFATE 2.5 MG/3 ML VIAL NEB IH (15:09)
[2024-11-28 15:11] VITALS: PULSE 96; O2SAT 95
[2024-11-28] MEDS: PREDNISONE 20 MG TABLET 60 MG PO (15:53)
[2024-11-28 16:03] LABS: Influenza Virus A Antigen Negative; Influenza Virus B Antigen Negative; Internal Control Within Normal Limits; SARS-CoV-2 Ag NEGATIVE (NEGATIVE)
[2024-11-28 16:04] LABS: Internal Control Within Normal Limits
--- NOTE | 2024-11-28 16:37 | PC.NURSE ---
patient concerned with pneumonia since last night he started to feel like his cold was getting worse. patient states that he has been treating his cold symtpoms with dayquil and he feels better but did not take it today. moist cough, patient always takes prednisone and muscinex to help loosen secreations from copd. had an episode of weakness and chill last night. able to ambulate with steady gait here.
[2024-11-28 16:41] VITALS: BP 160/80; PULSE 93; O2SAT 95
== END 2024-11-28 16:41 | disposition home or self-care (01) ==
PROVIDERS: Emergency Provider Emergency Medicine; PCP Nurse Practitioner
DX: J44.1 Chronic obstructive pulmonary disease with (acute) exacerbation (principal); J06.9 Acute upper respiratory infection, unspecified; Z87.01 Personal history of pneumonia (recurrent); Z87.891 Personal history of nicotine dependence
CPT/HCPCS: 71046; 80053; 82800; 83605; 83880; 84484; 87040; 87804; 87811; 93005; 94640; 99285; J7512

== ENCOUNTER 2024-12-05 10:21 | Outpatient (OUT) | payer MEDICARE, MEDICAID, SELFPAY | END 2024-12-05 10:22 | disposition home or self-care (01) | LOC: LAB 10:23 | PROVIDERS: PCP Nurse Practitioner; Visit Provider Radiology Radiation Oncology | DX: C61 Malignant neoplasm of prostate (principal) | CPT/HCPCS: 36415; 84153 ==

== ENCOUNTER 2024-12-05 10:37 | Emergency (ER) | payer MEDICARE, MEDICAID, SELFPAY ==
[2024-12-05 10:52] VITALS: BP 108/58; PULSE 76; TEMP 36.4; O2SAT 95; BMI 22.7
--- NOTE | 2024-12-05 11:55 | ED.GENADUL1 ---
HPI HPI - General Adult General Chief complaint: Back Pain/Injury Stated complaint: UPPER BACK PAIN, L RIB PAIN Time Seen by Provider: 12/05/24 10:38 Source: patient Mode of arrival: walk-in History of Present Illness HPI narrative: Patient presents to ED complaining of left thoracic back pain. He has recently had a cough and was seen in the ER. Chest x-ray showed no acute pneumonia. He was placed on antibiotics and steroids. He stopped the steroids with 2-1/2 days left because he was not sure if they were helping or making the back pain worse. He said his pain is not too bad right now but it comes and goes and will feel like sharp stabbing pain sometimes. He said he took Motrin but it did not really help. He also reports recently he had his doctor tell him that he had a cervical spine disc issue. He was having some pain that was radiating down the back of his arm into his fingers and causing pain and tingling. He does have severe arthritis and has been a chronic smoker his whole life. Patient states the cough is actually getting better but the back pain comes and goes still. Pain is reproducible on palpation and worse with a cough or sneeze. No distress he is resting comfortably in the room no other complaints at this time Related Data Home Medications ?Medication ?Instructions ?Recorded ?Confirmed albuterol sulfate 90 mcg/actuation 1 inh inhalation Q4H PRN shortness 01/05/24 12/05/24 aerosol inhaler of breath or wheezing aspirin 81 mg tablet,delayed 81 mg PO DAILY 01/05/24 12/05/24 release budesonide-formoterol HFA 160 2 puff inhalation BID 01/05/24 12/05/24 mcg-4.5 mcg/actuation aerosol inhaler diltiazem HCl 180 mg 180 mg PO DAILY 01/05/24 12/05/24 capsule,extended release 24 hr, controlled pantoprazole 40 mg tablet,delayed 40 mg PO DAILY 01/05/24 12/05/24 release roflumilast 500 mcg tablet 500 mcg PO DAILY 01/05/24 12/05/24 tiotropium bromide 2.5 2 inh inhalation DAILY PRN 01/05/24 12/05/24 mcg/actuation mist for inhalation shortness of breath (Spiriva Respimat) Previous Rx's ?Medication ?Instructions ?Recorded albuterol sulfate 2.5 mg/3 mL 2.5 mg (3 mL) inhalation Q6H PRN 11/28/24 (0.083 %) solution for nebulization shortness of breath or wheezing #90 mL methylprednisolone 4 mg tablets in See Rx Instructions .Route 11/28/24 a dose pack (Medrol (Blas)) .COMPLEX #21 ea hydrocodone 5 mg-acetaminophen 325 1 tab PO Q6H PRN pain #14 tabs 12/05/24 mg tablet Allergies Allergy/AdvReac Type Severity Reaction Status Date / Time No Known Drug Allergies Allergy Verified 12/05/24 10:48 Opioid HPI Opioid Management Most Recent Opioid Data: Last Pain Scale 8 12/05/24 11:25 12/05/24 Review of Systems ROS Status of ROS 10 or more systems reviewed and unremarkable except as noted in history and below PFSH [facility] Social History Little interest or pleasure in doing things: not at all Feeling down, depressed, or hopeless: not at all Exam Narrative Exam Narrative: General: alert, no acute distress Cardiovascular: regular rate and rhythm, normal peripheral perfusion. Respiratory: Lungs CTA, respirations non labored. Extremities: no deformity, no trauma. Neurological: oriented x 4, LOC appropriate for age. Tenderness to palpation in the thoracic paraspinal muscles and scapular region. Normal distal pulses and sensation and strength Constitutional Vital Signs, click to edit/add: Last Vital Signs Temp 97.5 F L 12/05/24 10:52 Pulse 76 12/05/24 10:52 Resp 18 12/05/24 10:52 BP 108/58 12/05/24 10:52 Pulse Ox 95 12/05/24 10:52 O2 Del Method Room Air 12/05/24 10:52 Course Vital Signs Vital signs: Vital Signs Temperature 97.5 F L 12/05/24 10:52 Pulse Rate 76 12/05/24 10:52 Respiratory Rate 18 12/05/24 10:52 Blood Pressure 108/58 12/05/24 10:52 Pulse Oximetry 95 12/05/24 10:52 Oxygen Delivery Method Room Air 12/05/24 10:52 Temperature 97.5 F L 12/05/24 10:52 Pulse Rate 76 12/05/24 10:52 Respiratory Rate 18 12/05/24 10:52 Blood Pressure 108/58 12/05/24 10:52 Pulse Oximetry 95 12/05/24 10:52 Oxygen Delivery Method Room Air 12/05/24 10:52 Medical Decision Making [facility] Narrative Medical decision making narrative: Patient was instructed to finish out the steroids as this may help the pain. It sounds like it is muscle spasms and tenderness from the recent cough and cold. Patient most likely also has arthritis in his thoracic spine since he does have it in his hips and his neck as well. I will send him home with some [place] for pain if needed. Follow-up with his primary provider outpatient if this is not getting better. Return to ED certainly if worsening symptoms or concerns. Patient was neurologically intact comfortable with care plan for home Differential Diagnosis Differential Diagnosis: Thoracic back strain, arthritis, pneumonia, pneumothorax Discharge Plan Discharge Chief Complaint: Back Pain/Injury Clinical Impression: Thoracic back pain Patient Disposition: Home, Self-Care Time of Disposition Decision: 11:20 Condition: Good Mode of Transportation: Private Vehicle Prescriptions / Home Meds: New hydrocodone-acetaminophen 5-325 mg tablet 1 tab PO Q6H PRN (Reason: pain) Qty: 14 0RF No Action albuterol sulfate 90 mcg/actuation HFA aerosol inhaler 1 inh INHALATION Q4H PRN (Reason: shortness of breath or wheezing) aspirin 81 mg tablet,delayed release (DR/EC) 81 mg PO DAILY budesonide-formoterol 160-4.5 mcg/actuation HFA aerosol inhaler 2 puff INHALATION BID diltiazem HCl 180 mg capsule,ext.rel 24h degradable 180 mg PO DAILY pantoprazole 40 mg tablet,delayed release (DR/EC) 40 mg PO DAILY roflumilast 500 mcg tablet 500 mcg PO DAILY Spiriva Respimat 2.5 mcg/actuation mist 2 inh INHALATION DAILY PRN (Reason: shortness of breath) albuterol sulfate 2.5 mg /3 mL (0.083 %) solution for nebulization 2.5 mg inhalation Q6H PRN (Reason: shortness of breath or wheezing) Qty: 90 0RF methylprednisolone [Medrol (Blas)] 4 mg tablets,dose pack See Rx Instructions .ROUTE .COMPLEX Qty: 21 0RF Rx Instructions: Taper as directed Print Language: Nepali Instructions: Back Pain (ED) Referrals: Kathie Sánchez NP [Primary Care Provider] - 1 week Discharge Date/Time: 12/05/24 11:28
== END 2024-12-05 11:28 | disposition home or self-care (01) ==
PROVIDERS: Emergency Provider Emergency Medicine; PCP Nurse Practitioner
DX: M54.6 Pain in thoracic spine (principal); C61 Malignant neoplasm of prostate
CPT/HCPCS: 36415; 84153; 99283

== ENCOUNTER 2025-01-10 11:42 | Emergency (ER) | payer MEDICARE, MEDICAID, SELFPAY ==
[2025-01-10 11:47] VITALS: BP 142/84; PULSE 119; TEMP 36.6; O2SAT 96; BMI 21.4
--- OUTSIDE RECORDS SUMMARY | 2025-01-10 11:49 | XMS_ITS | CCD ---
Author Organization [facility] Care Team Providers Care Managing Partner Name Role Phone Bryan Quick Attending Provider [phone] AICHMACIEL KATHIE J Primary Care Physician AICHHOLZ, ROOF DESIGNER KATHIE Primary Care Unavailable DR LEONOR MA Consulting Unavailable SAMSA ., ROBERTO Admitting Unavailable SAMSA ., ROBERTO Attending Unavailable SAMSA ., ROBERTO Consulting Unavailable AICHHOLZ, ROOF DESIGNER KATHIE Admitting Unavailable AICHHOLZ, ROOF DESIGNER KATHIE Attending Unavailable AICHHOLZ, ROOF DESIGNER KATHIE Consulting Unavailable AICHHOLZ, ROOF DESIGNER KATHIE Primary Care Unavailable AICHHOLZ, ROOF DESIGNER KATHIE Admitting Unavailable AICHHOLZ, ROOF DESIGNER KATHIE Primary Care Unavailable AICHHOLZ, ROOF DESIGNER KATHIE Attending Unavailable AICHHOLZ, ROOF DESIGNER KATHIE Consulting Unavailable AICHHOLZ, ROOF DESIGNER KATHIE Primary Care Unavailable DR LEONOR MA Consulting Unavailable SAMSA ., ROBERTO Admitting Unavailable SAMSA ., ROBERTO Attending Unavailable SAMSA ., ROBERTO Consulting Unavailable DR LEONOR MA Consulting Unavailable SAMSA ., ROBERTO Admitting Unavailable SAMSA ., ROBERTO Attending Unavailable SAMSA ., ROBERTO Consulting Unavailable DR ELSA NOBLE Admitting Unavailable DR OK CISNEROS V Consulting Unavailable AICHHOLZ, ROOF DESIGNER KATHIE Primary Care Unavailable DR ELSA NOBLE Attending Unavailable DR ELSA NOBLE Consulting Unavailable SAMSA ., ROBERTO Admitting Unavailable AICHHOLZ, ROOF DESIGNER KATHIE Primary Care Unavailable SAMSA ., ROBERTO Attending Unavailable SAMSA ., ROBERTO Consulting Unavailable SAMSA ., ROBERTO Admitting Unavailable AICHHOLZ, ROOF DESIGNER KATHIE Primary Care Unavailable DR LEONOR MA Consulting Unavailable SAMSA ., ROBERTO Attending Unavailable SAMSA ., ROBERTO Consulting Unavailable Aichholz WIND COMMISSIONING TECHNICIAN, Kathie Unavailable Lanre CHANDLER, Curt Primary Care Provider VORARufina R Attending Unavailable VORA, Rufina R Attending Unavailable VORA, Rufina R Attending Unavailable VORA, Rufina R Attending Unavailable VORA, Rufina R Admitting Unavailable VORA, Rufina R Referring Unavailable VORA, Rufina R Attending Unavailable Bhat DO, Peter Cruz Primary Care Provider Aichholz ROOF DESIGNER, Kathie Rosen Primary Care Provider Bhat DO, Peter Cruz Primary Care Provider Aichholz WIND COMMISSIONING TECHNICIAN, Kathie Unavailable Aichholz WIND COMMISSIONING TECHNICIAN, Kathie Unavailable Lanre CHANDLER, Curt Primary Care Provider [phone] Aichholz WIND COMMISSIONING TECHNICIAN, Kathie Unavailable Umu Schultz Unavailable Unavailable ENGELER, G GOPAL Referring Unavailable AICHHOLZ, KATHIE JAYE Primary Care Unavailable ENGELER, G GOPAL Referring Unavailable AICHHOLZ, KATHIE JAYE Primary Care Unavailable ENGELER, G GOPAL Referring Unavailable AICHHOLZ, KATHIE JAYE Primary Care Unavailable ENGELER, G GOPAL Referring Unavailable AICHHOLZ, KATHIE JAYE Primary Care Unavailable ENGELER, G GOPAL Referring Unavailable AICHHOLZ, KATHIE JAYE Primary Care Unavailable ENGELER, G GOPAL Referring Unavailable AICHHOLZ, KATHIE JAYE Primary Care Unavailable ENGELER, G GOPAL Referring Unavailable AICHHOLZ, KATHIE JAYE Primary Care Unavailable ENGELER, G GOPAL Referring Unavailable AICHHOLZ, KATHIE JAYE Primary Care Unavailable ENGELER, G GOPAL Attending Unavailable AICHHOLZ, KATHIE JAYE Primary Care Unavailable ENGELER, G GOPAL Attending Unavailable AICHHOLZ, KATHIE JAYE Primary Care Unavailable ENGELER, G GOPAL Attending Unavailable AICHHOLZ, KATHIE JAYE Primary Care Unavailable RUFINA VORA Referring Unavailable ENGELER, G GOPAL Attending Unavailable BHAT, PETER A Primary Care Unavailable AMANDEEP CRISOSTOMO Attending Unavailable BHAT, PETER A Primary Care Unavailable ENGELER, G GOPAL Attending Unavailable AICHHOLZ, KATHIE JAYE Primary Care Unavailable ENGELER, G GOPAL Attending Unavailable AICHHOLZ, KATHIE JAYE Primary Care Unavailable ENGELER, G GOPAL Referring Unavailable AICHHOLZ, KATHIE JAYE Primary Care Unavailable ENGELER, G GOPAL Referring Unavailable AICHHOLZ, KATHIE JAYE Primary Care Unavailable AICHHOLZ, KATHIE JAYE Primary Care Unavailable AICHHOLZ, KATHIE JAYE Primary Care Unavailable ENGELER, G GOPAL Referring Unavailable ENGELER, G GOPAL Attending Unavailable AICHHOLZ, KATHIE JAYE Primary Care Unavailable ENGELER, G GOPAL Referring Unavailable ENGELER, G GOPAL Attending Unavailable AICHHOLZ, KATHIE JAYE Primary Care Unavailable ENGELER, G GOPAL Referring Unavailable AICHHOLZ, KATHIE JAYE Primary Care Unavailable ENGELER, G GOPAL Referring Unavailable AICHHOLZ, KATHIE JAYE Primary Care Unavailable ENGELER, G GOPAL Attending Unavailable AICHHOLZ, KATHIE JAYE Primary Care Unavailable ENGELER, G GOPAL Referring Unavailable AICHHOLZ, KATHIE JAYE Primary Care Unavailable ENGELER, G GOPAL Attending Unavailable ENGELER, G GOPAL Referring Unavailable AICHHOLZ, KATHIE JAYE Primary Care Unavailable ENGELER, G GOPAL Attending Unavailable ENGELER, G GOPAL Referring Unavailable AICHHOLZ, KATHIE JAYE Primary Care Unavailable ENGELER, G GOPAL Referring Unavailable AICHHOLZ, KATHIE JAYE Primary Care Unavailable ENGELER, G GOPAL Referring Unavailable AICHHOLZ, KATHIE JAYE Primary Care Unavailable ENGELER, G GOPAL Attending Unavailable AICHHOLZ, KATHIE JAYE Primary Care Unavailable ENGELER, G GOPAL Referring Unavailable AICHHOLZ, KATHIE JAYE Primary Care Unavailable ENGELER, G GOPAL Attending Unavailable AICHHOLZ, KATHIE JAYE Primary Care Unavailable ENGELER, G GOPAL Referring Unavailable AICHHOLZ, KATHIE JAYE Primary Care Unavailable ENGELER, G GOPAL Attending Unavailable AICHHOLZ, KATHIE JAYE Primary Care Unavailable ENGELER, G GOPAL Referring Unavailable AICHHOLZ, KATHIE JAYE Primary Care Unavailable ENGELER, G GOPAL Referring Unavailable AICHHOLZ, KATHIE JAYE Primary Care Unavailable ENGELER, G GOPAL Referring Unavailable AICHHOLZ, KATHIE JAYE Primary Care Unavailable ENGELER, G GOPAL Referring Unavailable AICHHOLZ, KATHIE JAYE Primary Care Unavailable ENGELER, G GOPAL Referring Unavailable AICHHOLZ, KATHIE JAYE Primary Care Unavailable ENGELER, G GOPAL Referring Unavailable AICHHOLZ, KATHIE JAYE Primary Care Unavailable ENGELER, G GOPAL Attending Unavailable AICHHOLZ, KATHIE JAYE Primary Care Unavailable ENGELER, G GOPAL Referring Unavailable AICHHOLZ, KATHIE JAYE Primary Care Unavailable ENGELER, G GOPAL Referring Unavailable AICHHOLZ, KATHIE JAYE Primary Care Unavailable ENGELER, G GOPAL Referring Unavailable AICHHOLZ, KATHIE JAYE Primary Care Unavailable ENGELER, G GOPAL Referring Unavailable AICHHOLZ, KATHIE JAYE Primary Care Unavailable ENGELER, G GOPAL Referring Unavailable AICHHOLZ, KATHIE JAYE Primary Care Unavailable ENGELER, G GOPAL Referring Unavailable AICHHOLZ, KATHIE JAYE Primary Care Unavailable Lissa Garza MA Unavailable Unavailable Andrade Pendleton OD Unavailable KAREN VALDOVINOS Attending Unavailable PRINCESS, KATHIE Attending Unavailable KATHIE SÁNCHEZ Attending Unavailable RICHKATHIE ST Attending Unavailable Rufina VORA Attending Unavailable Allergies Allergy Classification Reported Allergen(s) Allergy Type Date of Onset Reaction(s) Facility (2 sources) No Known Medication Allergies; Translations: [No Known Medication Allergies] Propensity to adverse reactions (disorder) [facility] Medications Current Medications Medication Drug Class(es) Dates Sig (Normalized) Sig (Original) acetaminophen 325 mg / HYDROcodone bitartrate 5 mg oral tablet (2 sources) Opioid Agonist Start: 12-05-2024 HYDROcodone-aceta minophen ([place]) 5-325 MG tablet 12/05/2024 Active albuterol 0.83 mg/ml inhalation solution (20 sources) beta2-Adrenergic Agonist Start: 11-28-2024 albuterol (2.5 MG/3ML) 0.083% nebulizer solution INHALE 1 VIAL VIA NEBULIZER EVERY 6 HOURS NEEDED FOR SHORTNESS OF BREATH OR WHEEZING 11/28/2024 Active take 2 puff(s) by in halation [...] Platelet Aggregation Inhibitor, Nonsteroidal Anti-inflammatory Drug Start: 11-11-2024 End: 02-09-2025 take 1 tablet by mouth once daily aspirin ([facility] Aspirin Low Dose) 81 MG EC tablet Indications: Paroxysmal atrial fibrillation (CMS/HCC) Take 1 tablet (81 mg) by mouth Daily 90 tablet 3 11/11/2024 02/09/2025 Active Start: 11-12-2023 End: 02-10-2024 take 1 tablet [...] (20 sources) Non-narcotic Antitussive Start: 08-05-2022 Malou neil Perles Oral, q12hr, PRN Cough Start Date: 08/05/22 Status: Ordered take 1 capsule by [facility] three times daily as needed for cough benzonatate (Tessalon) 200 MG capsule Ta ke 200 mg by mouth 3 (three) times a day as needed for cough Do not crush or chew. Active 60 actuat budesonide 0.16 mg/actuat / formoterol fumarate 0.0045 mg/actuat metered dose inhaler (20 sources) Corticosteroid, beta2-Adrenergic Agonist take 2 [...] Refill(s) 0 Start Date: 05/17/22 Status: Ordered Comirnaty 30 MCG/0.3ML suspension prefilled syringe (2 sources) Start: 09-21-2024 Comirnaty 30 MCG/0.3ML suspension prefilled syringe 09/21/2024 Active cycloSPORINE 0.5 mg/ml ophthalmic suspension (20 sources) Calcineurin Inhibitor Immunosuppressant Start: 05-14-2024 take 1 drop(s) into the eye(s) every twelve hours Restasis 0.05 % ophthalmic emulsion Administer 1 drop into both eyes every 12 (twelve) hours 05/14/2024 Active Start: 05-14-2024 take 1 drop(s) [...] mg) by mouth Daily 90 capsule 1 10/16/2024 01/14/2025 Active Start: 05-17-2022 Dilt-XR 180 mg /24 hours oral capsule, extended release Refills(s) 0 Start Date: 05/17/22 Status: Ordered take 1 capsule by [facility] every twenty-four hours in the morning dilTIAZem [...] mg extended release oral tablet (20 sources) take 1 tablet by mouth in the morning, then take 1 tablet by mouth every twelve hours at bedtime guaiFENesin (Mucinex) 600 MG 12 hr tablet Take 1,200 mg by mouth in the morning and 1,200 mg before bedtime. Do not crush, chew, or split.. Active pantoprazole 40 mg delayed release oral tablet (20 sources) Proton Pump Inhibitor Start: 2 take 1 dose by mouth once daily Start: 05-30-2019 End: 01-14-2025 take 1 tablet by mouth before mealtime pantoprazole (ProtoNix) 40 MG EC tablet Indications: Gastro-esophageal reflux disease without esophagitis Take 1 tablet (40 mg) by mouth in the morning. Take before meals. 90 tablet 1 10/16/2024 01/14/2025 Active Hefeisqfkog-Gwgphmln-Epkspcc ac 1-0.5-0.075 % solution (1 source) Start: 01-02-2025 Xktdzsqqmpt-Nkaxuhwj-Zeidfaf ac 1-0.5-0.075 % solution Indications: Age-related nuclear cataract of both eyes Administer 1 drop into affected eye(s) in the morning and 1 drop at noon and 1 drop in the evening and 1 drop before bedtime. 10 mL 1 01/02/2025 Active predniSONE 10 mg oral tablet (20 sources) Start: 01-02-2024 predniSONE (DELTASONE) 10 mg tablet Refills(s) 0 01/02/2024 Active [...] take 1 tablet by dominique once daily Roflumilast (Daliresp) 500 MCG tablet Take 500 mcg by mouth 1 (one) time each day Active sodium chloride 9 mg/ml inhalation solution (13 sources) sodium chloride 0.9 % nebulizer solution Take 3 mL by nebulization if needed for wheezing Active Sodium Phosphate, Dibasic / Sodium Phosphate, Monobasic (1 source) Start: 4 Fleet Enema 133 mL, Rectal, Once, 133 mL, Refill(s) 0, [facility]/pharmacy #[id number], 175, cm, 01/02/24 12:45:00 EST, [...] Inhale 2 puffs in the morning. Active take 1 capsule by in halation once daily tiotropium (SPIRIVA WITH HANDIHALER) 18 mcg inhalation capsule Inhale 18 mcg as instructed once daily. Active tiZANidine 4 mg oral tablet (13 sources) Central alpha-2 Adrenergic Agonist Start: 09-13-2024 End: 01-14-2025 tiZANidine (Zanaflex) 4 MG tablet Indications: DDD (degenerative disc disease), cervical Take 1 tablet (4 mg) by mouth as needed at bedtime for muscle spasms May take 1/2-1 pill at bedtime 90 tablet 10/16/2024 01/14/2025 Active Ventolin HFA 90 mcg/inh Aerosol-Adpt (8 [...] Drug Class(es) Dates Sig (Normalized) Sig (Original) ibuprofen 800 mg oral tablet (20 sources) [...] (ADVIL ORAL) Take by mouth. 0 Active Problems Active Problems Problem Classification Problem Date Documented Date Episodic/Chronic Anxiety disorders (12 sources) Anxiety disorder; Translations: [Anxiety disorder, unspecified] Onset: 11-17-2017 02-28-2024 Chronic Aortic; peripheral; and visceral artery aneurysms (20 sources) Abdominal aortic aneurysm without rupture; Translations: [Abdominal aortic aneurysm (AAA) without rupture] Onset: 04-10-2024 04-10-2024 Chronic Cancer of prostate (20 sources) Malignant neoplasm of prostate; Translations: [Malignant tumor of prostate] Onset: 06-06-2023 Chronic Cardiac dysrhythmias (15 sources) Atrial fibrillation; Translations: [Unspecified atrial fibrillation] Onset: 11-12-2023 11-12-2023 Chronic Cataract (2 sources) Bilateral age-related nuclear cataracts; Translations: [Age-related nuclear cataract, bilateral] Onset: 01-02-2025 01-02-2025 Chronic Chronic obstructive pulmonary disease and bronchiectasis (20 sources) Emphysema, unspecified; Translations: [Chronic obstructive lung disease] Onset: 05-16-2013 05-16-2013 Chronic Coagulation and hemorrhagic disorders (13 sources) Thrombophilia; Translations: [Other thrombophilia] Onset: 09-13-2024 09-13-2024 Chronic Disorders of lipid metabolism (12 sources) Mixed hyperlipidemia; Translations: [Mixed hyperlipidemia] Onset: 02-28-2024 02-28-2024 Chronic Esophageal disorders (20 sources) Gastroesophageal reflux disease; Translations: [Gastro-esophageal reflux disease without esophagitis] Onset: 12-06-2023 04-19-2022 Chronic Gout and other crystal arthropathies (20 sources) Gout; Translations: [Gout, unspecified] Onset: 02-28-2024 04-19-2022 Chronic Osteoarthritis (20 sources) Arthritis; Translations: [Osteoarthritis of left hip joint] Onset: 11-14-2017 04-19-2022 Chronic Other nervous system disorders (20 sources) Neuropathy; Translations: [Polyneuropathy, unspecified] Onset: 02-28-2024 04-19-2022 Chronic Other nervous system disorders (13 sources) Carpal tunnel syndrome of right wrist; Translations: [Carpal tunnel syndrome, right upper limb] Onset: 10-27-2023 10-27-2023 Chronic Other nervous system disorders (12 sources) Chronic pain; Translations: [Other chronic pain] Onset: 09-13-2024 09-13-2024 Chronic Other screening for suspected conditions (not mental disorders or infectious disease) (2 sources) Encounter for screening for malignant neoplasm of prostate; Translations: [Screening for malignant neoplasm done] Onset: 05-17-2022 Episodic Other skin disorders (4 sources) Sebaceous cyst of skin; Translations: [Sebaceous cyst] Onset: 05-17-2022 Episodic Peripheral and visceral atherosclerosis (13 sources) Atherosclerosis of aorta; Translations: [Atherosclerosis of aorta] Onset: 09-13-2024 09-13-2024 Chronic Pleurisy; pneumothorax; pulmonary collapse (8 sources) Focal atelectasis 04-19-2022 Episodic Respiratory failure; insufficiency; arrest (adult) (20 sources) Chronic hypoxemic respiratory failure; Translations: [Chronic respiratory failure with hypoxia] Onset: 02-28-2024 04-19-2022 Chronic Spondylosis; intervertebral disc disorders; other back problems (14 sources) Degeneration of cervical intervertebral disc; Translations: [Other cervical disc degeneration, unspecified cervical region] Onset: 09-13-2024 09-13-2024 Chronic Unclassified (8 sources) Patient encounter status 05-17-2022 Unclassified (8 sources) Sebaceous cyst of skin 05-17-2022 Unclassified (1 source) COUGH, UNSPECIFIED; Translations: [COUGH, UNSPECIFIED] Onset: 05-06-2022 Unclassified (1 source) CONTACT W/AND (SUSP) EXPOS COVID-19; Translations: [CONTACT W/AND (SUSP) EXPOS COVID-19] Onset: 05-06-2022 Past or Other Problems Problem Classification Problem Date Documented Da te Episodic/Chronic Alcohol-related disorders (20 sources) Alcohol dependence, uncomplicated; Translations: [Alcoholism] Onset: 05-16-2013 Resolved: 12-17-2024 05-16-2013 Chronic Mood disorders (12 sources) Mood disorders Onset: 02-28-2024 02-28-2024 Other aftercare (1 source) Other prison (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 therapy; Translations: [OTH [facility] CURRENT DRUG THERAPY] Onset: 08-13-2022 Episodic Other gastrointestinal disorders (19 sources) Scrotal mass; Translations: [Follicular cyst of the skin and subcutaneous tissue, unspecified] Onset: 09-13-2024 04-19-2022 Episodic Other lower respiratory disease (4 sources) [...] Onset: 05-03-2022 Episodic Other lower respiratory disease (12 sources) Lung mass; Translations: [Other nonspecific abnormal [...] Spondylosis; intervertebral disc disorders; other back problems (12 sources) Lumbar radiculopathy; Translations: [Radiculopathy, lumbar region] Onset: 02-28-2024 02-28-2024 Episodic Substance-related disorders (20 sources) Marijuana user; Translations: [Cannabis use, unspecified, uncomplicated] Onset: 05-16-2013 05-16-2013 Episodic Unclassified (12 sources) Onset: 02-28-2024 02-28-2024 Results Test Name Value Interpretation Reference Range Facility [facility] Eye[facility]Orbit - bilateralon 0 01-02-2025 Diagnosis: Cataract both eyes (OU) Testing Indication: Performed for preop measurements in the determination of an intraocular lens (IOL) for both eyes (OU) Test Reliability: Good quality both eyes (OU) Interpretation: Good measurements for intraocular lens (IOL) calculation purposes. Calculation made for both eyes (OU). [facility] Radiology Study observation (narrative) [facility] MHPT PSA, DIAGNOSTICon 12-05 Interpretation and review of laboratory results Abnormal [facility] PROSTATE SPECIFIC ANTIGEN DX 4.2 ng/mL High NINF - 4.00 ng/mL [facility]IN[facility] No Panel Informationon 12-05 [facility] CNOVon 11-02-2024 CNOV Office Visit (RADTSA ) JINNYMATEO Payan ([id number]) 1960 M Date Time Provider Department 11/02/24 10:30 AM Severo DENT During your visit today, we recorded the following information about you: Temperature Pulse Respiration Blood pressure 98.4 degrees 100/minute 18/minute 118/82 Severo Dent MD 11/09/2024 11:44 AM Signed Radiation Oncology - On Treatment Review (OTR) Note PATIENT NAME: Mateo Stearns PATIENT DIAGNOSIS: Prostate adenocarcinoma, initial PSA 4.46, biopsy Hewitt score 3 + 3 = 6 (grade [...] Order(s):PROSTATE-SPE CIFIC ANTIGEN DIAGNOSTIC [SQPSA] Order #: [id number] FUTURE Prescriptions as of 11/09/2024 - predniSONE [...] Encounter Status:Closed by Severo DENT on 11/09/24 [facility] CNOVon 10-29-2024 CNOV Office Visit (RADTSA ) MATEO STEARNS ([id number]) 1960 M Date Time Provider Department 10/29/24 10:30 AM Severo DENT [facility] During your visit today, we recorded the following information about you: Temperature Pulse Respiration Blood pressure 97.9 degrees 81/minute 18/minute 126/84 Weight 67.7 kg Severo Dent MD 10/29/2024 10:54 AM Signed Radiation Oncology - On Treatment Review (OTR) Note PATIENT NAME: Mateo Stearns PATIENT DIAGNOSIS: Prostate adenocarcinoma, initial PSA 4.46, biopsy Hewitt score 3 + 3 = 6 (grade [...] Encounter Status:Closed by Severo DENT on 10/29/24 [facility] CNOVon 10-22-2024 CNOV Office Visit (RADTSA ) MATEO STEARNS ([id number]) 1960 M Date Time Provider Department 10/22/24 10:30 AM Severo DENT RADTSA During your visit today, we recorded the following information about you: Temperature Pulse Respiration Blood pressure 97.1 degrees 71/minute 18/minute 127/81 Weight 67.6 kg Severo Dent MD 10/22/2024 10:51 AM Signed Radiation Oncology - On Treatment Review (OTR) Note PATIENT NAME: Mateo Stearns PATIENT DIAGNOSIS: Prostate adenocarcinoma, initial PSA 4.46, biopsy Hewitt score 3 + 3 = 6 (grade [...] Severo Dent MD Allergies As of Date: 10/22/2024 [...] Encounter Status:Closed by Severo DENT on 10/22/24 [facility] 10-15-2024 CNOV Office Visit (ENRIQUEA ) MATEO STEARNS ([id number]) 1960 M Date Time Provider Department 10/15/24 10:30 AM Severo DENT During your visit [...] Status:Closed by Severo DENT on 10/15/24 Normal [facility] CBC W Auto Differential pane l (Bld)on 10-11-2024 Basophils (Bld) [#/Vol] 0.04 10*3/uL [facility] Differential cell count method Nom (Bld) Auto [facility] Eosinophils (Bld) [#/Vol] 0.07 10*3/uL [facility] Immature granulocytes (Bld) [#/Vol] 0.16 10*3/uL High [facility] Immature granulocytes/100 WBC (Bld) 1.1 % [facility] Lymphocytes (Bld) [#/Vol] 1.10 10*3/uL [facility] Monocytes (Bld) [#/Vol] 0.45 10*3/[facility] Neutrophils (Bld) [#/Vol] 12.30 10*3/uL High [facility] Nucleated RBC (Bld) [#/Vol] [facility] Nucleated RBC/100 WBC (Bld) [Ratio] 0.0 % /100 WBC [facility] Platelet mean volume (Bld) [Entitic vol] 8.6 fL Low 9.0 - 12.7 fL [facility] Platelets (Bld) [#/Vol] 317 10*3/uL [facility] WBC (Bld) [#/Vol] 14.12 10*3/uL High [facility] Basophils (Bld) [#/Vol] 0.04 10*3/uL Normal <0.11 [facility] Comment on above: Order Comment: Speci men Type: BLOOD SPECIMENOrdering Facility: [facility] Address: [address] [place] [address] Performed By: #### 5 7021-8 ####[facility] LABCLIA [id number] [place] [address] Basophils/100 WBC (Bld) 0.3 % Normal [facility] Comment on above: Order Comment: Speci men Type: BLOOD SPECIMENOrdering Facility: [facility] Address: [address] [place] [address] Performed By: #### 5 7021-8 ####[facility]CLIA [id number] [place] [address] Differential cell count method Nom (Bld) Auto Normal [facility] Comment on above: Order Comment: Speci men Type: BLOOD SPECIMENOrdering Facility: [facility] Address: [address] [place] [address] Performed By: #### 5 7021-8 ####[facility]CL[facility] [id number] [place] [address] Eosinophils (Bld) [#/Vol] 0.07 10*3/uL Normal <0.46 [facility] Comment on above: Order Comment: Speci men Type: BLOOD SPECIMENOrdering Facility: [facility] Address: [address] [place] [address] Performed By: #### 5 7021-8 ####[facility]CLIA [id number] [place] [address] Eosinophils/100 WBC (Bld) 0.5 % Normal [facility] Comment on above: Order Comment: Speci men Type: BLOOD SPECIMENOrdering Facility: [facility] Address: [address] [place] [address] Performed By: #### 5 7021-8 ####[facility] LABIA [id number] [place] [address] Erythrocyte distribution width (RBC) [Ratio] 13.6 % Normal 11.5-15.0 [facility] Comment on above: Order Comment: Speci men Type: BLOOD SPECIMENOrdering Facility: [facility] Address: [address] [place] [address] Performed By: #### 5 7021-8 ####[facility]CL[facility] [id number] [place] [address] Hematocrit (Bld) [Volume fraction] 43.8 % Normal 39.0-51.0 [facility] Comment on above: Order Comment: Speci men Type: BLOOD SPECIMENOrdering Facility: [facility] Address: [address] [place] [address] Performed By: #### 5 7021-8 ####[facility] LABIA [id number] [place] [address] Hemoglobin (Bld) [Mass/Vol] 14.8 g/dL Normal 13.0-17.0 [facility] Comment on above: Order Comment: Speci men Type: BLOOD SPECIMENOrdering Facility: [facility] Address: [address] [place] [address] Performed By: #### 5 7021-8 ####[facility]CLIA [id number] [place] [address] Immature granulocytes (Bld) [#/Vol] 0.16 10*3/uL High <0.10 [facility] Comment on above: Order Comment: Speci men Type: BLOOD SPECIMENOrdering Facility: [facility] Address: [address] [place] [address] Performed By: #### 5 7021-8 ####[facility] LABCLIA [id number] [place] [address] Immature granulocytes/100 WBC (Bld) 1.1 % Normal [facility] Comment on above: Order Comment: Speci men Type: BLOOD SPECIMENOrdering Facility: [facility] Address: [address] [place] [address] Performed By: #### 5 7021-8 ####[facility] LABCLIA [id number] [place] [address] Lymphocytes (Bld) [#/Vol] 1.10 10*3/uL Normal 1.00-4.00 [facility] Comment on above: Order Comment: Speci men Type: BLOOD SPECIMENOrdering Facility: [facility] Address: [address] [place] [address] Performed By: #### 5 7021-8 ####[facility] LABCLIA [id number] [place] [address] Lymphocytes/100 WBC (Bld) 7.8 % Normal [facility] Comment on above: Order Comment: Speci men Type: BLOOD SPECIMENOrdering Facility: [facility] Address: [address] [place] [address] Performed By: #### 5 7021-8 ####[facility] LABCLIA [id number] [place] [address] MCH (RBC) [Entitic mass] 30.4 pg Normal 26.0-34.0 [facility] Comment on above: Order Comment: Speci men Type: BLOOD SPECIMENOrdering Facility: [facility] Address: [address] [place] [address] Performed By: #### 5 7021-8 ####[facility] LABCLIA [id number] [place] [address] MCHC (RBC) [Mass/Vol] 33.8 g/dL Normal 30.5-36.0 [facility] Comment on above: Order Comment: Speci men Type: BLOOD SPECIMENOrdering Facility: [facility] Address: [address] [place] [address] Performed By: #### 5 7021-8 ####[facility] LABIA [id number] [place] [address] MCV (RBC) [Entitic vol] 89.9 fL Normal 80.0-100.0 [facility] Comment on above: Order Comment: Speci men Type: BLOOD SPECIMENOrdering Facility: [facility] Address: [address] [place] [address] Performed By: #### 5 7021-8 ####[facility] LABIA [id number] [place] [address] Monocytes (Bld) [#/Vol] 0.45 10*3/uL Normal <0.87 [facility] Comment on above: Order Comment: Speci men Type: BLOOD SPECIMENOrdering Facility: [facility] Address: [address] [place] [address] Performed By: #### 5 7021-8 ####[facility] LABIA [id number] [place] [address] Monocytes/100 WBC (Bld) 3.2 % Normal [facility] Comment on above: Order Comment: Speci men Type: BLOOD SPECIMENOrdering Facility: [facility] Address: [address] [place] [address] Performed By: #### 5 7021-8 ####[facility] LABCLIA [id number] [place] [address] Neutrophils (Bld) [#/Vol] 12.30 10*3/uL High 1.45-7.50 [facility] Comment on above: Order Comment: Speci men Type: BLOOD SPECIMENOrdering Facility: [facility] Address: [address] [place] [address] Performed By: #### 5 7021-8 ####[facility] LABCLIA [id number] [place] [address] Neutrophils/100 WBC (Bld) 87.1 % Normal [facility] Comment on above: Order Comment: Speci men Type: BLOOD SPECIMENOrdering Facility: [facility] Address: [address] [place] [address] Performed By: #### 5 7021-8 ####[facility] LABCLIA [id number] [place] [address] Nucleated RBC (Bld) [#/Vol] 10*3/uL Normal <0.01 [facility] Comment on above: Order Comment: Speci men Type: BLOOD SPECIMENOrdering Facility: [facility] Address: [address] [place] [address] Performed By: #### 5 7021-8 ####[facility] LABCLIA [id number] [place] [address] Nucleated RBC/100 WBC (Bld) [Ratio] 0.0 /100 WBC Normal [facility] Comment on above: Order Comment: Speci men Type: BLOOD SPECIMENOrdering Facility: [facility] Address: [address] [place] [address] Performed By: #### 5 7021-8 ####[facility] LABIA [id number] [place] [address] Platelet mean volume (Bld) [Entitic vol] 8.6 fL Low 9.0-12.7 [facility] Comment on above: Order Comment: Speci men Type: BLOOD SPECIMENOrdering Facility: [facility] Address: [address] [place] [address] Performed By: #### 5 7021-8 ####[facility] LABCLIA [id number] [place] [address] Platelets (Bld) [#/Vol] 317 10*3/uL Normal 150-400 [facility] Comment on above: Order Comment: Speci men Type: BLOOD SPECIMENOrdering Facility: [facility] Address: [address] [place] [address] Performed By: #### 5 7021-8 ####[facility] LABIA [id number] [place] [address] RBC (Bld) [#/Vol] 4.87 10*6/uL Normal 4.20-6.00 [facility] Comment on above: Order Comment: Speci men Type: BLOOD SPECIMENOrdering Facility: [facility] Address: [address] [place] [address] Performed By: #### 5 7021-8 ####[facility] LABIA [id number] [place] [address] WBC (Bld) [#/Vol] 14.12 10*3/uL High 3.70-11.00 [facility] Comment on above: Order Comment: Speci men Type: BLOOD SPECIMENOrdering Facility: [facility] Address: [address] [place] [address] Performed By: #### 5 7021-8 ####[facility] LABIA [id number] [place] [address] [facility] CBC W AUTO DIFF BLDon [facility] BASOPHILS # BLD AUTO 0.04 [facility] DIFFERENTIAL METHOD BLD Auto [facility] EOSINOPHIL # BLD AUTO 0.07 [facility] LYMPHOCYTES # BLD AUTO 1.1 [facility] MONOCYTES # BLD AUTO 0.45 [facility] NEUTROPHILS # BLD AUTO 12.3 High [facility] NRBC # BLD AUTO <0.01 [facility] NRBC/100 WBC BLD-RTO 0 /100 WBC [facility] PLATELET # BLD AUTO 317 [facility] PMV BLD AUTO 8.6 fL Low 9.0 - 12.7 fL [facility] WBC # BLD AUTO 14.12 High [facility] IMM GRANULOCYTES # BLD AUTO 0.16 High [facility] IMM GRANULOCYTES/LEUK NFR BLD AUTO 1.1 % [facility] Specimen Type: BLOOD SPECIMEN [facility] Address: [address] [place] [address] Original Ordering Provider: Severo DENT [facility] 10-11-2024 CNOV Office Visit (RADTSA ) MATEO STEARNS ([id number]) 1960 M Date Time Provider Department 10/11/24 10:45 AM LAB/PORT MIRELLAT ANA ALCALA During your visit today, we [...] Dayanna Call LPN Referring Provider: Severo DENT [[id number]] Allergies As of Date: 10/11/2024 (No Known Allergies) Date Reviewed: 10/01/2024 Reviewed by: Mona Melvin, CARIDAD - Fully Assessed Visit Diagnosis:Malignant neoplasm of prostate (HCC) [C61] Order(s):COMPLETE BLOOD COUNT AND DIFFERENTIAL [SQCBCDIF] Order #: [id number]. #:[id number] Prescriptions as of 10/11/2024 - predniSONE (DELTASONE) [...] 06/24/2024 Visit Notes: >> Dayanna Call LPN [facility] Oct 11, 2024 10:55 AM Status: Signed [...] Status:Closed by DAYANNA CALL on 10/11/24 Normal [facility] Laboratory - Hematology and Cell countson 10-11-2024 Basophils/100 WBC (Bld) 0.3 % [facility] Eosinophils/100 WBC (Bld) 0.5 % [facility] Erythrocyte distribution width (RBC) [Ratio] 13.6 % 11.5 - 15.0 % [facility] Hematocrit (Bld) [Volume fraction] 43.8 % 39.0 - 51.0 % [facility] Hemoglobin (Bld) [Mass/Vol] 14.8 g/dL 13.0 - 17.0 g/dL [facility] Lymphocytes/100 WBC (Bld) 7.8 % [facility] MCH (RBC) [Entitic mass] 30.4 pg 26.0 - 34.0 pg [facility] MCHC (RBC) [Mass/Vol] 33.8 g/dL 30.5 - 36.0 g/dL [facility] MCV (RBC) [Entitic vol] 89.9 fL 80.0 - 100.0 fL [facility] Monocytes/100 WBC (Bld) 3.2 % [facility] Neutrophils/100 WBC (Bld) 87.1 % [facility] RBC (Bld) [#/Vol] 4.87 10*6/uL 4.20 - 6.0 0 m/uL [facility] No Panel Informationon 10-11 Interpretation and review of laboratory results Abnormal [facility] CNOVon 10-08-2024 CNOV Office Visit (RADTSA ) MATEO [id number]) 1960 M Date Time Provider Department 10/08/24 [...] Date Reviewed: 10/01/2024 Reviewed by: Mona Melvin, CARIDAD - Fully Assessed Primary Visit Diagnosis:Malignant neoplasm of prostate (HCC) [C61] Order(s):COMPLETE BLOOD COUNT AND DIFFERENTIAL [SQCBCDIF] Order #: [id number] FUTURE Prescriptions as of 10/08/2024 - predniSONE [...] 05/16/2013 Marijuana smoker [F12.90] 05/16/2013 Prostate cancer ([facility]) [C61] 06/24/2024 Encounter Status:Closed by Severo DENT on 10/08/24 Normal [facility] CBC W Auto Differential pane l (Bld)on 10-04-2024 Basophils (Bld) [#/Vol] 0.03 10*3/uL [facility] Differential cell count method Nom (Bld) Auto [facility] Eosinophils (Bld) [#/Vol] [facility] Eosinophils/100 WBC (Bld) 0.0 % [facility] Hemoglobin (Bld) [Mass/Vol] 15.0 g/dL 13.0 - 17.0 g/dL [facility] Immature granulocytes (Bld) [#/Vol] 0.10 10*3/uL High [facility] Immature granulocytes/100 WBC (Bld) 0.9 % [facility] Lymphocytes (Bld) [#/Vol] 1.30 10*3/uL [facility] Monocytes (Bld) [#/Vol] 0.40 10*3/uL [facility] Neutrophils (Bld) [#/Vol] 9.47 10*3/uL High [facility] Nucleated RBC (Bld) [#/Vol] [facility] Nucleated RBC/100 WBC (Bld) [Ratio] 0.0 % /100 WBC [facility] Platelet mean volume (Bld) [Entitic vol] 8.6 fL Low 9.0 - 12.7 fL [facility] Platelets (Bld) [#/Vol] 330 10*3/uL [facility] WBC (Bld) [#/Vol] 11.30 10*3/uL High [facility] Basophils (Bld) [#/Vol] 0.03 10*3/uL Normal <0.11 [facility] Comment on above: Order Comment: Speci men Type: BLOOD SPECIMENOrdering Facility: [facility] Address: [address] [place] [address] Performed By: #### 5 7021-8 ####[facility] LABCLIA [id number] [place] [address] Basophils/100 WBC (Bld) 0.3 % Normal [facility] Comment on above: Order Comment: Speci men Type: BLOOD SPECIMENOrdering Facility: [facility] Address: [address] [place] [address] Performed By: #### 5 7021-8 ####[facility] LABCLIA [id number] [place] [address] Differential cell count method Nom (Bld) Auto Normal [facility] Comment on above: Order Comment: Speci men Type: BLOOD SPECIMENOrdering Facility: [facility] Address: [address] [place] [address] Performed By: #### 5 7021-8 ####[facility] LABCLIA [id number] [place] [address] Eosinophils (Bld) [#/Vol] 10*3/uL Normal <0.46 [facility] Comment on above: Order Comment: Speci men Type: BLOOD SPECIMENOrdering Facility: [facility] Address: [address] [place] [address] Performed By: #### 5 7021-8 ####[facility] LABCLIA [id number] [place] [address] Eosinophils/100 WBC (Bld) 0.0 % Normal [facility] Comment on above: Order Comment: Speci men Type: BLOOD SPECIMENOrdering Facility: [facility] Address: [address] [place] [address] Performed By: #### 5 7021-8 ####[facility] LABCLIA [id number] [place] [address] Erythrocyte distribution width (RBC) [Ratio] 13.5 % Normal 11.5-15.0 [facility] Comment on above: Order Comment: Speci men Type: BLOOD SPECIMENOrdering Facility: [facility] Address: [address] [place] [address] Performed By: #### 5 7021-8 ####[facility] LABCLIA [id number] [place] [address] Hematocrit (Bld) [Volume fraction] 43.9 % Normal 39.0-51.0 [facility] Comment on above: Order Comment: Speci men Type: BLOOD SPECIMENOrdering Facility: [facility] Address: [address] [place] [address] Performed By: #### 5 7021-8 ####[facility] LABCLIA [id number] [place] [address] Hemoglobin (Bld) [Mass/Vol] 15.0 g/dL Normal 13.0-17.0 [facility] Comment on above: Order Comment: Speci men Type: BLOOD SPECIMENOrdering Facility: [facility] Address: [address] [place] [address] Performed By: #### 5 7021-8 ####[facility] LABCLIA [id number] [place] [address] Immature granulocytes (Bld) [#/Vol] 0.10 10*3/uL High <0.10 [facility] Comment on above: Order Comment: Speci men Type: BLOOD SPECIMENOrdering Facility: [facility] Address: [address] [place] [address] Performed By: #### 5 7021-8 ####[facility] LABCLIA [id number] [place] [address] Immature granulocytes/100 WBC (Bld) 0.9 % Normal [facility] Comment on above: Order Comment: Speci men Type: BLOOD SPECIMENOrdering Facility: [facility] Address: [address] [place] [address] Performed By: #### 5 7021-8 ####[facility] LABCLIA [id number] [place] [address] Lymphocytes (Bld) [#/Vol] 1.30 10*3/uL Normal 1.00-4.00 [facility] Comment on above: Order Comment: Speci men Type: BLOOD SPECIMENOrdering Facility: [facility] Address: [address] [place] [address] Performed By: #### 5 7021-8 ####[facility] LABCLIA [id number] [place] [address] Lymphocytes/100 WBC (Bld) 11.5 % Normal [facility] Comment on above: Order Comment: Speci men Type: BLOOD SPECIMENOrdering Facility: [facility] Address: [address] [place] [address] Performed By: #### 5 7021-8 ####[facility] LABCLIA [id number] [place] [address] MCH (RBC) [Entitic mass] 30.5 pg Normal 26.0-34.0 [facility] Comment on above: Order Comment: Speci men Type: BLOOD SPECIMENOrdering Facility: [facility] Address: [address] [place] [address] Performed By: #### 5 7021-8 ####[facility] LABCLIA [id number] [place] [address] MCHC (RBC) [Mass/Vol] 34.2 g/dL Normal 30.5-36.0 [facility] Comment on above: Order Comment: Speci men Type: BLOOD SPECIMENOrdering Facility: [facility] Address: [address] [place] [address] Performed By: #### 5 7021-8 ####[facility] LABIA [id number] [place] [address] MCV (RBC) [Entitic vol] 89.2 fL Normal 80.0-100.0 [facility] Comment on above: Order Comment: Speci men Type: BLOOD SPECIMENOrdering Facility: [facility] Address: [address] [place] [address] Performed By: #### 5 7021-8 ####[facility] LABIA [id number] [place] [address] Monocytes (Bld) [#/Vol] 0.40 10*3/uL Normal <0.87 [facility] Comment on above: Order Comment: Speci men Type: BLOOD SPECIMENOrdering Facility: [facility] Address: [address] [place] [address] Performed By: #### 5 7021-8 ####[facility] LABCLIA [id number] [place] [address] Monocytes/100 WBC (Bld) 3.5 % Normal [facility] Comment on above: Order Comment: Speci men Type: BLOOD SPECIMENOrdering Facility: [facility] Address: [address] [place] [address] Performed By: #### 5 7021-8 ####[facility] LABCLIA [id number] [place] [address] Neutrophils (Bld) [#/Vol] 9.47 10*3/uL High 1.45-7.50 [facility] Comment on above: Order Comment: Speci men Type: BLOOD SPECIMENOrdering Facility: [facility] Address: [address] [place] [address] Performed By: #### 5 7021-8 ####[facility] LABCLIA [id number] [place] [address] Neutrophils/100 WBC (Bld) 83.8 % Normal [facility] Comment on above: Order Comment: Speci men Type: BLOOD SPECIMENOrdering Facility: [facility] Address: [address] [place] [address] Performed By: #### 5 7021-8 ####[facility] LABCLIA [id number] [place] [address] Nucleated RBC (Bld) [#/Vol] 10*3/uL Normal <0.01 [facility] Comment on above: Order Comment: Speci men Type: BLOOD SPECIMENOrdering Facility: [facility] Address: [address] [place] [address] Performed By: #### 5 7021-8 ####[facility] LABCLIA [id number] [place] [address] Nucleated RBC/100 WBC (Bld) [Ratio] 0.0 /100 WBC Normal [facility] Comment on above: Order Comment: Speci men Type: BLOOD SPECIMENOrdering Facility: [facility] Address: [address] [place] [address] Performed By: #### 5 7021-8 ####[facility] LABCLIA [id number] [place] [address] Platelet mean volume (Bld) [Entitic vol] 8.6 fL Low 9.0-12.7 [facility] Comment on above: Order Comment: Speci men Type: BLOOD SPECIMENOrdering Facility: [facility] Address: [address] [place] [address] Performed By: #### 5 7021-8 ####[facility] LABCLIA [id number] [place] [address] Platelets (Bld) [#/Vol] 330 10*3/uL Normal 150-400 [facility] Comment on above: Order Comment: Speci men Type: BLOOD SPECIMENOrdering Facility: [facility] Address: [address] [place] [address] Performed By: #### 5 7021-8 ####[facility] LABCLIA [id number] [place] [address] RBC (Bld) [#/Vol] 4.92 10*6/uL Normal 4.20-6.00 [facility] Comment on above: Order Comment: Speci men Type: BLOOD SPECIMENOrdering Facility: [facility] Address: [address] [place] [address] Performed By: #### 5 7021-8 ####[facility] LABCLIA [id number] [place] [address] WBC (Bld) [#/Vol] 11.30 10*3/uL High 3.70-11.00 [facility] Comment on above: Order Comment: Speci men Type: BLOOD SPECIMENOrdering Facility: [facility] Address: [address] [place] [address] Performed By: #### 5 7021-8 ####[facility] LABCLIA [id number] [place] [address] [facility] CBC W AUTO DIFF BLDon [facility] BASOPHILS # BLD AUTO 0.03 [facility] DIFFERENTIAL METHOD BLD Auto [facility] EOSINOPHIL # BLD AUTO <0.03 [facility] LYMPHOCYTES # BLD AUTO 1.3 [facility] MONOCYTES # BLD AUTO 0.4 [facility] NEUTROPHILS # BLD AUTO 9.47 High [facility] NRBC # BLD AUTO <0.01 [facility] NRBC/100 WBC BLD-RTO 0 /100 WBC [facility] CCF PLATELET # BLD AUTO 330 [facility] PMV BLD AUTO 8.6 fL Low 9.0 - 12.7 fL [facility] WBC # BLD AUTO 11.3 High [facility] Eosinophils/100 WBC (Bld) 0 % [facility] Hemoglobin (Bld) [Mass/Vol] 15 g/dL 13.0 - 17.0 g/dL [facility] IMM GRANULOCYTES # BLD AUTO 0.1 High [facility] IMM GRANULOCYTES/LEUK NFR BLD AUTO 0.9 % [facility] Specimen Type: BLOOD SPECIMEN [facility] Address: [address] [place] [address] Original Ordering Provider: Severo DENT CLINBETO Mohan 10-04-2024 CNOV Office Visit (RADTSA ) MATEO STEARNS ([id number]) 1960 M Date Time Provider Department 10/04/24 2:30 PM LAB/PORT RAJESH ANA RADTSA During your visit today, we recorded [...] BLOOD COUNT AND DIFFERENTIAL [SQCBCDIF] Order #: [id number]. #:[id number] Prescriptions as of 10/04/2024 - predniSONE (DELTASONE) [...] 06/24/2024 Visit Notes: >> Dayanna Call LPN [facility] Oct 04, 2024 3:20 PM Status: Signed Aliadelma Schuyler Stearns presents in office today for: Lab Draw only . Ordering Provider: Gopal Dent M.D. Test (s) ordered: CBC Method for obtaining blood: Phlebotomy was performed, accessing left antecubital vein. Needle removed intact. Dressing secured. Patient denies discomfort, dizziness, light-headedness or weakness and left the department without assist. Dayanna Call LPN Encounter Status:Closed by DAYANNA CALL on 10/04/24 Normal [facility] - Hematology and Cell countson 10-04-2024 Basophils/100 WBC (Bld) 0.3 % [facility] Erythrocyte distribution width (RBC) [Ratio] 13.5 % 11.5 - 15.0 % [facility] Hematocrit (Bld) [Volume fraction] 43.9 % 39.0 - 51.0 % [facility] Lymphocytes/100 WBC (Bld) 11.5 % [facility] MCH (RBC) [Entitic mass] 30.5 pg 26.0 - 34.0 pg [facility] MCHC (RBC) [Mass/Vol] 34.2 g/dL 30.5 - 36.0 g/dL [facility] MCV (RBC) [Entitic vol] 89.2 fL 80.0 - 100.0 fL [facility] Monocytes/100 WBC (Bld) 3.5 % [facility] Neutrophils/100 WBC (Bld) 83.8 % [facility] RBC (Bld) [#/Vol] 4.92 10*6/uL 4.20 - 6.0 0 m/uL [facility] No Panel Informationon 10-04 Interpretation and review of laboratory results Abnormal [facility] CNOVon 10-01-2024 CNOV Office Visit (RADTSA ) MATEO STEARNS ([id number]) 1960 M Date Time Provider Department 10/01/24 10:30 AM Severo DENT During your visit today, we recorded the following information about you: Temperature Pulse Respiration Blood pressure 97.9 degrees 99/minute 18/minute 129/83 Weight 67.6 kg Severo Dent MD 10/01/2024 10:51 AM Signed Radiation Oncology - On Treatment Review (OTR) Note PATIENT NAME: Mateo Stearns PATIENT DIAGNOSIS: Prostate adenocarcinoma, initial PSA 4.46, biopsy Hewitt score 3 + 3 = 6 (grade [...] Encounter Status:Closed by Severo DENT on 10/01/24 [facility] CNOVon 09-25-2024 CNOV Office Visit (RADTSA ) MATEO STEARNS ([id number]) 1960 M Date Time Provider Department 09/25/24 2:00 PM Severo DENT During your visit today, we recorded the following information about you: Weight 67.1 kg Severo Dent MD 09/26/2024 4:56 PM Signed Radiation Oncology - On Treatment Review (OTR) Note PATIENT NAME: Mateo Stearns PATIENT DIAGNOSIS: Prostate adenocarcinoma, initial PSA 4.46, biopsy Hewitt score 3 + 3 = 6 (grade [...] Severo Dent MD Referring Provider: Severo DENT [[id number]] Allergies As of Date: 09/25/2024 (No Known Allergies) Date Reviewed: 09/25/2024 Reviewed by: Mona Melvin, CARIDAD - Fully Assessed Reason for Visit: Radiotherapy [...] Encounter Status:Closed by Severo DENT on 09/26/24 [facility] Tracy 09-24-2024 SANDEE Telephone (MIRELLAContractor CopilotA) MATEO STEARNS ([id number]) 1960 M Date Time Provider Department 09/24/24 Sevreo DENT During your visit today, we recorded [...] BLOOD COUNT AND DIFFERENTIAL [SQCBCDIF] Order #: [id number] FUTURE Prescriptions as of 09/24/2024 - predniSONE [...] Encounter Status:Closed by DAYANNA CALL on 09/24/24 [facility] CNOVon 09-17-2024 CNOV Office Visit (ENRIQUEA ) MATEO STEARNS ([id number]) 1960 M Date Time Provider Department 09/17/24 11:45 AM Severo DENT During your visit today, we recorded the following information about you: Referring Provider: Severo DENT [[id number]] Allergies As of Date: 09/17/2024 (No Known Allergies) Date Reviewed: 09/11/2024 Reviewed by: Dayanna Call LPN - Fully Assessed Reason for Visit: Simulation Request Form [7384] Primary Visit Diagnosis:Malignant neoplasm of prostate (HCC) [C61] Order(s):RADIATION TREATMENT PER RADIATION ONCOLOGIST PLAN [[id number]] Order #: [id number]: 1 PT ED CANCER [[id number]] Order #: [id number]: 1 CT SIM PLANNING RADIATION ONCOLOGY [2803991] Order #: [id number] Prescriptions as of 09/17/2024 - predniSONE (DELTASONE) [...] Encounter Status:Closed by Severo DENT on 09/17/24 [facility] [place] 09-14-2024 SANDEE Telephone ([employer]) JINNYMATEO MARSHALL ([id number]) 1960 M Date Time Provider Department 09/14/24 Severo DENT During your visit today, we [...] Encounter Status:Closed by MONA MELVIN on 09/14/24 [facility] CNOVon 09-11-2024 CNOV Office Visit (RADTSA ) MATEO STEARNS ([id number]) 1960 M Date Time Provider Department 09/11/24 1:45 PM Severo DENT During your visit today, we recorded the following information about you: Temperature Pulse Respiration Blood pressure 97.8 degrees 80/minute 18/minute 146/82 Weight 68.1 kg Dayanna Call LPN 09/11/2024 1:44 PM Signed AUA= 3 Severo Dent MD 09/18/2024 12:03 PM Signed Radiation Oncology - Prostate Cancer Follow-up note PATIENT NAME: Mateo Payan Jinny PATIENT DIAGNOSIS: Prostate adenocarcinoma, initial PSA 4.46, biopsy Hewitt score 3 + 3 = 6 (grade group 1), clinical stage T1c, N0, M0, stage I [cT1a-c/T2a, N0, M0, PSA <10, GG 1] (AJCC 8th ed.), s/p TRUS Random biopsy. HPI: Patient in for follow-up to discuss treatment options again. Laboratory: Burstly genomic risk score: 0.43 (low risk) PSA. [...] IMRT a (more content not included)... [facility] Interpretation and review of laboratory results Abnormal [facility] PROSTATE SPECIFIC ANTIGEN DX 7.20 ng/mL High NINF - 4.00 ng/mL [facility] CLINISYNC No Panel Informationon 09-07 [facility] CNOVon 07-12-2024 CNOV Office Visit (RADTSA ) MATEO STEARNS ([id number]) 1960 M Date Time Provider Department 07/12/24 [...] No date: COPD (chronic obstructive pulmonary disease) ([facility]ERLY [facility]) No date: Emphysema of lung ([facility]) No date: GERD (gastroesophageal reflux disease) PAST [...] pack years: 92.50 Types: Cigarettes Quit date: 2017 Years since quittin.6 Smokeless tobacco: Never Vaping [...] ASSESSMENT/PLAN: Prostate adenocarcinoma, initial PSA 4.46, biopsy Hewitt score 3 + 3 = 6 (grade [...] be checked (more content not included)... Normal [facility] CNOVon 06-21-2024 CNOV Office Visit (RADTSA ) MATEO STEARNS ([id number]) 1960 Oj Date Time Provider Department 06/21/24 1:15 PM Severo DENT During your visit today, we recorded the following information about you: Temperature Pulse Respiration Blood pressure 97.5 degrees 86/minute 20/minute 124/75 Weight Height 67.8 kg 1.702 m Dayanna CallJACKIE 06/21/2024 1:50 PM Signed Pacemaker/Defibrillat or?N Previous [...] with elevated PSA and prostate biopsy demonstrating Hewitt 6 adenocarcinoma in 2 cores. (Left lateral base and left base) He was placed on active surveillance. PSA 11/30/2023 was 4.22. He underwent repeat prostate biopsy on 05/01/2024 with the finding of adenocarcinoma, Hewitt 6 (3+3) from left lateral base, left [...] muscle aches (more content not included)... Normal [facility] CNOVon 06-01-2024 CNOV Office Visit (UROLMN ) MATEO STEARNS ([id number]) 1960 M Date Time Provider Department 06/01/24 1:45 PM AMANDEEP CRISOSTOMO UROOh During your visit today, we recorded the following information about you: Pulse Blood pressure Weight Height 88/minute 138/81 68 kg 1.753 m Amandeep Crisostomo MD 06/24/2024 4:18 PM Signed Referring Provider: Chief Complaint: Recently diagnosed CaP HPI: 63 year old male from [place], [place] with a PMHx of COPD (40 pack-year smoker), Afib (on ASA), and GERD diagnosed with CAP in 05/20 which showed 2 cores of Hewitt 6 disease. He has sever COPD with shortness of breath on exertion and O2 saturation in high 80s. He was started on . In , his PSA was 4.22 and his urology decided to repeat a biopsy with 8/18 cores positive for Hewitt 6 disease. Past surgical Hx: total hip [...] review Assessment 63 year old male from [place], [place] with a PMHx of COPD (40 pack-year smoker and poor oxygenation status), Afib (on ASA), and GERD diagnosed with CAP in 05/20 which showed 2 cores of Brenden 6 disease. Recently had more + cores on a repeat biopsy and is here (more content not included)... Normal [facility] URINALYSIS, REFLEX MICROSCOP ICon 06-01-2024 Bilirubin Ql (U) Negative Negative [facility] Clarity (Unsp spec) Clear Clear [facility] Color (U) Yellow Yellow [facility] Glucose Test strip (U) [Mass/Vol] Negative Negative [facility] Hemoglobin Ql (U) Negative Negative [facility] Interpretation and review of laboratory results Normal [facility] Ketones Ql (U) Negative Negative [facility] Leukocyte esterase Test strip Ql (U) Negative Negative [facility] Nitrite Ql (U) Negative Negative [facility] pH (U) 5.5 [pH] NINF - 8.5 [facility] Protein (U) [Mass/Vol] Negative Negative [facility] Specific gravity (U) [Rel density] 1.009 1.005 - 1.030 [facility] Urobilinogen Ql (U) 0.2 EU/dL 0.2-1.0 EU/dL [facility] This test was developed and its performance characteristics determined by [facility]'s [facility] [place] ([facility]). It has not been cleared or approved by the FDA. [facility] is regulated under CLIA as qualified to perform high-complexity testing. This test is used for clinical purposes. It should not be regarded as investigational or for research. [facility] Bilirubin Ql (U) Negative Normal Negative [facility] Comment on above: Order Comment: Speci men Type: URINE SPECIMENOrdering Facility: [facility] Address: [address] [place] [address] Performed By: #### L [id number] ####[facility] LABCLIA [id number] [place] [address] [place] Clarity (Unsp spec) Clear Normal [facility] Comment on above: Order Comment: Speci men Type: URINE SPECIMENOrdering Facility: [facility] Address: [address] [place] [address] Performed By: #### L [id number] ####[facility] LABCLIA [id number] [place] [address] [place] Color (U) Yellow Normal Yellow [facility] Comment on above: Order Comment: Speci men Type: URINE SPECIMENOrdering Facility: [facility] Address: [address] [place] [address] Performed By: #### L [id number] ####[facility] LABCLIA [id number] [place] [address] [place] Glucose Test strip (U) [Mass/Vol] Negative Normal Negative [facility] Comment on above: Order Comment: Speci men Type: URINE SPECIMENOrdering Facility: [facility] Address: [address] [place] [address] Performed By: #### L [id number] ####[facility] LABCLIA [id number] [place] [address] [place] Hemoglobin Ql (U) Negative Normal Negative [facility] Comment on above: Order Comment: Speci men Type: URINE SPECIMENOrdering Facility: [facility] Address: [address] [place] [address] Performed By: #### L [id number] ####[facility] LABCLIA [id number] [place] [address] [place] Ketones Ql (U) Negative Normal Negative [facility] Comment on above: Order Comment: Speci men Type: URINE SPECIMENOrdering Facility: [facility] Address: [address] [place] [address] Performed By: #### L [id number] ####[facility] LABCLIA [id number] [place] [address] [place] Leukocyte esterase Test strip Ql (U) Negative Normal Negative [facility] Comment on above: Order Comment: Speci men Type: URINE SPECIMENOrdering Facility: [facility] Address: [address] [place] [address] Performed By: #### L [id number] ####[facility] LABCLIA [id number] [place] [address] [place] Nitrite Ql (U) Negative Normal Negative [facility] Comment on above: Order Comment: Speci men Type: URINE SPECIMENOrdering Facility: [facility] Address: [address] [place] [address] Performed By: #### L [id number] ####[facility] LABCLIA [id number] [place] [address] [place] pH (U) 5.5 [pH] Normal <8.5 [facility] Comment on above: Order Comment: Speci men Type: URINE SPECIMENOrdering Facility: [facility] Address: [address] [place] [address] Performed By: #### L [id number] ####[facility] LABCLIA [id number] [place] [address] [place] Protein (U) [Mass/Vol] Negative Normal Negative [facility] Comment on above: Order Comment: Speci men Type: URINE SPECIMENOrdering Facility: [facility] Address: [address] [place] [address] Performed By: #### L [id number] ####[facility] LABIA [id number] [place] [address] [place] [facility] Specific gravity (U) [Rel density] 1.009 Normal 1.005-1.030 [facility] Comment on above: Order Comment: Speci men Type: URINE SPECIMENOrdering Facility: [facility] Address: [address] [place] [address] Performed By: #### L [id number] ####[facility] LABIA [id number] [address] [place] Urobilinogen Ql (U) 0.2 EU/dL Normal 0.2-1.0 EU/dL [facility] Comment on above: Order Comment: Speci men Type: URINE SPECIMENOrdering Facility: [facility] Address: [address] [place] [address] Performed By: #### L [id number] ####[facility] [id number] [address] [place] Ambulatory Visit Summaryon 0 05-21-2024 Ambulatory Visit Summary MATEO STEARNS Schuyler :1960 Visit Date:05/21/2024 Ambulatory Visit Instructions Your [...] Where: [facility] [address], [place] [address] [phone] Someone Will Contact You Regarding These Appointments [facility] External Ambulatory Referral, Other (needs to be [...] often, espec (more content not included)... Normal [facility] Patient Educationon 05-21-20 Patient Education Oncology Prostate [...] under a microscope. This is called the Hewitt score and the total score can range from 6?10, indicating how likely it is that the cancer will spread (metastasize) to other parts of the body. The higher the score, the greater the likelihood that the cancer will spread. ? Hewitt 6 or lower: This indicates that the cancer cells look similar to normal prostate cells (well differentiated). ? Brenden 7: This indicates that the cancer cells look somewhat similar to normal prostate cells (moderately differentiated). ? Hewitt 8, 9, or 10: This indicates that [...] be (more content not included)... Normal [facility] Urology Office/Clinic Noteon 05-21-2024 Urology [...] of prostate cancer. S/p TRUS/bx 05/17/23 - Hewitt score 6 (3+3) in 2 cores, each one is less than 10%. 2 HGPINs. S/p TRUS/bx 05/01/24 - Brenden 6 (3+3) in 9/12 cores. 30% core [...] Follow-up With When Contact Information DIONY CHANDLER, uRfina Reina, URL [facility] [address], [place] [address] [phone] Additional Instructions: referral to [facility] to discuss prostatectomy Patient Education Prostate Cancer I, Vesta Cortes, personally scribed for Dr. Vora on 05/21/2024 [...] Recorded zoste (more content not included)... Normal [facility] Comment on above: Result Comment: Elec tronically Signed By: DIONY CHANDLER, Rufina Reina\.br\Date and Time Signed: 05/21/24 12:44 EDT\.br\Electronically Co-Signed By: Vesta Cortes\.br\Date and Time Co-Signed: 05/21/24 12:43 EDT Coding Summary.on 05-17-2024 Coding Summary. DDVWBwsi64JZc9wVa+PG h lYWQ+XE2ZSPEbO69kyQBy xK8rT1RTYXzZYlytNEFXK WhFYcYyzhDoFY9fpFOwBR Ju IC8+NR2wWPTgMvqrlZAtc 1D5zHR8J42gph7uKPqbgO V5MONuMaHnuobcy0cctSk 6IDcuNmluOyBt IMNzwC84JAK0pQ68Cc05w MUrzIPuy6hrrXv6EgMjWB HsUSO4gTnjCTgpv5CeIMZ uT15chTNgh4V6 ZGQpoLlgkZLgRoGvwKD5i L8vRPxvkgptz7jpdrgvCc f7uj56xRJfy7B4jPB9Y8P zzjE2MWWjeEGb CfproWOKfT1mdhjwu9ltj pjrZnRaXFCxZAp0OIj5LS YanWomUpTuOJ71FHN3BVI citQpE6TxIREe oKpvUiB0b7C7Xr9TA2JCC ojjN5LEREJHELoxuVW+PC 74ju10Q8XyBxatTrb3NUM jGQD0xZK0vB7f DDCcNPdsv8J2lJX4B6Akc sRocz7xw8zbWENzKSpgO0 7hzSPhk4G2JGJhnVK0AMM flRttZwXykQ75 Oyc+YYOcuBbay6SkWzecm 3tcg4ywnSg5NnvyYHIthx RxsBxbTAC3b5IdYl2wZWG ftUM3hNT4bJ2l RbHcIpH6NBotH533VwVwx ZTuXcizA14iC6JezTU+PH FvVxp5YVKiuMkpBO5zJ7Y hZGRpbmctbGVm wExwHV1qNAJvhxykBWEdi F2vBOGwH6x8HjQmWnZ7WG gsP8AoKUTjakfoJp92pM5 eUgMcEpN2CKdd I7EbloX6PPEowTUhLAkwT EK3S96qq1N3HMYsGUWhSG E5dUG4zX8atDjgobzluDX mdDsgdmVydGlj OTdcMKlrC362XSPjmNuuK kNvZGluZyBEYXRlOiAgMD YvMjAvMjAyNDwvdGQ+PHR cUVE8kAtkLDNo sOJzMYtyVo1rgZkefPspG E5kDTKihhkpNRWeqL3xNY FolESzeJwcVP2lOXAubmd vr624EhPnOLD4 LLPnxPAfR5HqzN4wTxZyK YYfDUWcD6ZelQCpQDqcY5 12QJwzDfC7MQFeeaGsX4Q sLWFsaWduOiB0 l2O2Tl9Tq3MdoxetR3Ehx RFsXlQmUzueWGr6P8LxNv wvdHI+ZI37GMQwBC93GId 9AWC9aFhbCQsb KJDlK8UttR3qNyEyYNCeH GRkOyc+PHRhYmxlIHdpZH RoPScxMDAlJyBzdHlsZT0 bUn0pTJHjNVFw gLbzkVKjYqMbs1ahCLClY EmxVV0qeOuqL1EyoPQ0CA Mbj2v2Yw51Q09kY2YulNO +CTPxiGK5ySV3 vK9kVbNdRdM3FGgcT209E tUyhZCsSctav6bnn3zbrG r1UtA0GUNdydOwoZrlYZY 0w4IcSy04W59v IHdpZHRoPSIxNSUiIHZhb Njqii7leK0nVt3+PGNvbC Q2dGF6wB0jUsGiOdM1LXs qM395FvUalWAy Ikdkr0lsm8acqXa1AwDpF AIsnvYvzPzkXCT1x4JhUk 80D0EttPicu4QiVrb0vo6 2nCCea5B2vGS7 X5NuKTHambfjkHUdpCptK Z6lHMXkfpxsHPExkI5pOJ DeX8a2BlXaFpU5CYojN8P legH2QFVtiCNf LGKdwPGLtU8ldqzyk2mkv wxwFfTwMAEpMXy5EAa1DW AzmBfdShExCYM6NlD4BME 5lKBjiQ9myVjt cieisI7wPvr+ZRJ7fNMpf XJIUQ6dBsqghEO+PHRkIH X8rOebBRjeRWToiO7dPYB nF2m0DfAlNpY8 XLtpD1KfwtZ9JXTwbUQtP AGnzKSDcN7bbirwf3ykol orJsWeAGIpWMl0IGj2HAG saWduOiBsZWZ0 CeY7XVW7cZJayZ8guKady jiszA3hCii+QmlydGggRG L0PWg3N7RbGeb9MOUniUv sIC4kzDQhNQog Dv1hyMejgClgGW8cIGDit efok309IvKvr1svCHSzhH JgAYuzSFX5I29cp4Q7FXE nBUWwMMX3tBG4 cQ2yxMbgboahqDOxlLkac cVomQrxRThsWIiuV644TJ UfyGmxPdEgIXj7K3OzKtb 2RKLmdHpnBJ8b hTJpCKahTe7fzVwmsYwmR A8xMEGafzwzl545ZoIhu1 yhHFQteJYtBMxhLGM4B36 ck7L6ZJXjDOUk KJE4sIU7tX8srFdjvdoqa GVmdDsgdmVydGljYWwtYW qpX463QOCdwOarJzAidLc 1N0PtEpp3LQSy hCwlCG1kvSWcWQweHz4gp JiygJxpOJ7tJYOvqokra7 80XtLpa1tuVDPttYBpUAs jVYD9D67yu4W4 JDXpKRTaEZB4gZG9kM2ws GlnbjogbGVmdDsgdmVydG ulGImwDAdqJ496XTTwdSh nPlBhdGllbnQg WVqbHDi6D2BrStndvXJ+P A01NSFzAJ13zLPqjNQbw3 mraIy3LmXoCTRkSYL1gGi uBLhoz4ZsWJOe V10wqXKnp5L9FDSfuWneb XOmOxPmbZX8cE4nHJqijj kdw2eszhrxBuror1imvz0 1pO72O08tKCqv ZHRoPSIzMCUiIHZhbGlnb y6ohJ7oHf9+FIJbuVC0cH E7cZ5dBUHoMgT3XXgdJ99 9InRvcCIvPjxj m4wpx4glzUq2WgI2KXImb tTwmIcdWID0k4AyKv17R3 9sIHdpZHRoPSIyMCUiIHZ nnIsdls5bxJ5t Ii8+RHYhoUI3sMB4kU2qO gLuLsJ9TZxiS291MuEzyC QuFstbE01eF4MthWX+PHR mFcb3AZDbyQxv WU3lgYAaMWstKg7wZSQ3W xXcYhUzHRcmC5LtRYApnb iwvbqqnJY1BHCtJQIdwK6 3Tk7hhEtsLHAw aTXPqB2bjcjzh6ixomkzA qUlUZSwXQw5HFq9DRIppA suYpHqQAZ4FkV6TVN4tXO mwF9sqMneuwdj pD3hD3FeKWHirhnnVa24j H3oXfAlNuG3GGotMcx+SE 4EUOusW4jDPDDDA3CHAPR gVzwvdGQ+PHRk HPM2gGwuUExrGHOqwN8mX NXkK8k0YqZdIyX8OHtdX2 UdVHRwkyjdSk24cU8pKeY oQyU7KUenU6Pn pvH2ZWEsaBNnNYfeJTR9F 50py4Y1GYSuBVGjNLX7fS K8gA7epWaoqzuinCWofAx gdmVydGljYWwt FEvlO141IXDioDwrLkA6H bI8ZzM7ZWi3T4RlPcg0TN IdaAwhCE2fuTZrPWubIq4 mtXzlqRolDX0p TUCoihamGCMavH6tPVBsc DOruJjuQG5yNPMmiuimi3 26BkObCYI6XZDuhLDkV3K qwF1iJhZvTDLo GFTiE8IsiGToFKxfD339P TwdQuG6PEBeeiMzI6ObIK KjeFdeGrN1l5M4Da22DGP ZZWFyczwvdGQ+ WCDzNSJ0hCcwUXzdXYCbr X8sOTOkS6f9GyMmYgM0BM erQ9JpLJQmfuofVz80mB9 eDwKdTzY4NTwx S1KerbR2YWUdxTDcXXukM HV9I01zt8P7HSXmLFWeDE R9xQJ3pN1jhQihjttrtRB mdDsgdmVydGlj ETjoMVliD498USMagCqnC c7toBE5Y4WmRry3EPEznY swVK3njHYfXIxrBl0tnDn viKgeUQ1dSNWx pmxyPALzsM2vGMEahJEzk WvtRS5vINStvulfi694Ub HbQSQ7IVDqtEDlF5GxzG5 yOiAjMDAwMDAw E3VahJNcECgsM755CWkzT iM0GPOnqzLjT3IfCOLeaV kkVdY4e8B7Dk9ZpTIyAFU pJE26YC10KL49 Q6HgWrkpzNUkbDM+PHRhY mxlIHdpZHRoPScxMDAlJy OlfHtkFZ3eUn1nEERdJBH vbGxhcHNlOiBj t8voZIOgZBhsAY7aqXntH 6EybJN9WPHea8x9Wm66G5 3sO9FayFL+KTHmgZY3cLC 3cS8bOkSxZrB6 RIqxS895ZgZntZDiCvkqe 7ckg4bqtCo7ZaYiMUBjhs OfjVbpSQZ7p6QmHn46U70 sIHdpZHRoPSIy YXPfDSHnaAixxb3dvO7qU i8+LGJykST2cJV8zB3qJg RqKoB4WYaxA335MyLvfXI gMlzkM94hK8Ui dXA+ZHXrByq4ELJbzAckF N7ztHAwRFvxWi4xPFN7Sz XwPiOlEIbsT9LdJKMqrdw dxzcwlGG1THUp ATWifA05Ji8qiFmiMy2gC ZGcQKP9PCYdoLPxW8JneW 6wVrXjVLXkTOLwF4RokHI gFDulR208AVat BeD5VZDsteWrC4PvOBYvv PdsPvQ5p6V1Hp1WyLnpfH YeBR3xOwIyXQv6M2IvLez 6EEXzmEmnIZ4e pZOeBKzeSm4vrCqlvAaoX A2zIVSqqblbg754UqFhx7 znRMMfqTVpGRxkEMC5Y81 re9K3MBPhZZJp LLI1hAP8gR3fsLjocbgmu GVmdDsgdmVydGljYWwtYW kzB773JCPldAfrGdCTVbt 0M0DbTtn7SFPv nKnaSJ9loUMuKObgCt8oq ZqitFzoPE6oBGHhdkhwt9 67UvTfw7laEDGkzDBeFAs vMWQ6D96oj4U0 NYQhBAHpURH1gXW2qA1dt GlnbjogbGVmdDsgdmVydG mxIYkzLDtbG832XEXatDv nFr8SEdr3N5Ar Vcv5GUDhnVjoGH0tgXWhX KtoHz3iqNdlrAwfIO6tQH Dyswjri456LzOkr1tlDGC wcHQgVGltZXM7 D27jj2D7ZUElBHBzXOT1t VO4vY7miKmowqmmnNNnlJ fpsvPtaRfhGEzuICkvK17 6IHRvcDsnPlBh eWVyOjwvdGQ+SJ10kp15H 6ThXvcqPgw1AKSpDWC7qP L7vC9vLZRoNKmzb1D1aCG 5T6HrvwMedf7q n9aiAWBjJBpoU (more content not included)... Normal [facility] Prostate Histology ([facility]) on 05-16-2024 Prostate Histology Diagnosis Info Invalid Interpretation Code [facility] Comment on above: Order Comment: left base [...] Interpretation - - Acinar adenocarcinoma of prostate; Hewitt score 6(3+3); Tumor measures 0.1 cm in [...] not identified. MicroScopic Description - E:Prostate,Left Lateral [place]:Needle Biopsy Interpretation - - Atypical glands suspicious but not diagnostic for adenocarcinoma. MicroScopic Description - F:Prostate,Left [place]:Needle Biopsy Interpretation - - Benign prostatic tissue. MicroScopic Description - G:Prostate,Right Base:Needle Biopsy Interpretation - - Benign prostatic tissue. MicroScopic Description - H:Prostate,Right Lateral Base:Needle Biopsy Interpretation - - Benign prostatic tissue. MicroScopic Description - I:Prostate,Right Mid:Needle Biopsy Interpretation - - Benign prostatic tissue. MicroScopic Description - J:Prostate,Right Lateral Mid:Needle Biopsy Interpretation - - Benign prostatic tissue. MicroScopic Description - K:Prostate,Right [place]:Needle Biopsy Interpretation - - Benign prostatic tissue. MicroScopic Description - L:Prostate,Right Lateral [place]:Needle Biopsy Interpretation - - Benign prostatic tissue. MicroScopic Description - M:Prostate,Left Base:Needle Biopsy Interpretation - - Acinar adenocarcinoma of prostate; Hewitt score 6(3+3); Tumor measures 0.2 cm in [...] Interpretation - - Acinar adenocarcinoma of prostate; Hewitt score 6(3+3); Tumor measures 0.1 cm in length; 8% of the core involved by tumor; 1 of 1 core involved; Perineural invasion not identified. MicroScopic Description - P:Prostate,Left Lateral Mid:Needle Biopsy Interpretation - - Acinar adenocarcinoma of prostate; Hewitt score 6(3+3); Tumor measures 0.1 cm in length; 25% of the core involved by tumor; 1 of 2 cores involved; Perineural invasion not identified. MicroScopic Description - Q:Prostate,Left [place]:Needle Biopsy Interpretation - - Acinar adenocarcinoma of prostate; Brenden score 6(3+3); Tumor measures 0.1 cm in length; 3% of the core involved by tumor; 1 of 2 cores involved; MicroScopic Description - R:Prostate,Left [place]:Needle Biopsy Interpretation - - Benign prostatic tissue. [...] on: 05/16/2024 11:46:32 Performed By: #### 1 [id number] #### [address] [address] Consent for Procedure/Surger yon 05-01-2024 Consent for Procedure/Surgery [id number] .[id number] Normal [facility] Consent for Treatmenton Consent for Treatment [id number] Normal [facility] IntraOperative Documentson 0 05-01-2024 IntraOperative Documents [id number] .[id number] Normal [facility] Main OR Intraoperative Recor don 05-01-2024 Main OR Intraoperative Record IntraOp Document Type FTURO Summary Primary Physician: Rufina VORA MD Finalized Date/Time: 05/01/24 12:17:31 Pt. Name: MATEO STEARNS /Sex: 1960 Male Med Rec #: [id number] Physician: Rufina VORA MD Financial #: [id number] Pt. Type: O Room/Bed: / Admit/Disch: 05/01/24 [...] Diana Whitlock Role Performed Surgeon - Primary Wrapping Machine Helper - Primary Scrub - Primary Time In [...] BIOPSY Primary Procedure Yes Primary Surgeon Rufina VORA MD Start 05/01/24 11:35:00 Stop 05/01/24 11:56:00 Anesthesia Type Local Surgical Service Urology Wound Class 2 - Clean-Contaminated Last Modified By: Mara Wong RN 05/01/24 11:56:48 General Case Data FTURO Pre-Care [...] Availability Equipment, Medication Time Out DIONY CHANDLER, Rufina Reina, Verified (If Participants Gila MCLEAN, Mara Applicable) Oswaldo Corey CST, Diana Chaparro Time [...] By: Mara Wong RN 05/01/24 12:17 Normal [facility] Main OR Preoperative Recordo n 05-01-2024 Main OR Preoperative Record Holding Area Document Type FTURO Summary Primary Physician: Rufina VORA MD Finalized Date/Time: 05/01/24 11:27:32 Pt. Name: JINNY ALIARAJANIHEMA Breen/Sex: 1960 Male Med Rec #: [id number] Physician: Rufina VORA MD Financial #: [id number] Pt. Type: O Room/Bed: / Admit/Disch: 05/01/24 [...] Kimball RN, Ruthann 05/01/24 11:22:47 Finalized By: Jigar RN, CNOR, Kinjal Document Signatures Signed By: MICA Kimball RN, Kinjal 05/01/24 11:22 MICA Kimball RN, Kinjal 05/01/24 11:25 MICA Kimball RN, Kinjal 05/01/24 11:27 Normal [facility] Operative Reporton Operative Report Patient: [...] evaluation, 18 total biopsies were taken. Normal [facility] Comment on above: Result Comment: Rigo grijalva Signed By: DIONY CHANDLER, Rufina Arrington\Date and Time Signed: 05/01/24 12:04 EDT Outpatient Surgery Discharge Instructionon 05-01-2024 Outpatient Surgery Discharge Instruction [id number] Normal [facility] Patient Educationon 05-01-20 Patient Education Custom Transrectal [...] for your post-operative appointment in 1-2 weeks [phone] or [phone] Normal [facility] Prostate Histology ([facility]) on 05-01-2024 PH Method of Extraction Needle Biopsy Normal [facility] Comment on above: Order Comment: left base x 3 bites Left lateral mid x 3 bites Left apex x 4 bites Performed By: #### 1 [id number] #### [facility] [address] [place] [address] PH Number of Jars 3 Invalid Interpretation Code [facility] Comment on above: Order Comment: left base x 3 bites Left lateral mid x 3 bites Left apex x 4 bites Performed By: #### 1 [id number] #### [facility] [address] [place] [address] PH Specimen 1 L Apx Prostate Normal [facility] Comment on above: Order Comment: left base x 3 bites Left lateral mid x 3 bites Left apex x 4 bites Performed By: #### 1 [id number] #### [facility] [address] [place] [address] PH Specimen 10 R Lat Bse Prost [facility] Comment on above: Order Comment: left base x 3 bites Left lateral mid x 3 bites Left apex x 4 bites Performed By: #### 1 [id number] #### [facility] [address] [place] [address] PH Specimen 11 R Lat Mid Prost [facility] Comment on above: Order Comment: left base x 3 bites Left lateral mid x 3 bites Left apex x 4 bites Performed By: #### 1 [id number] #### [facility] [address] [place] [address] PH Specimen 12 R Lat Apx Prost [facility] Comment on above: Order Comment: left base x 3 bites Left lateral mid x 3 bites Left apex x 4 bites Performed By: #### 1 [id number] #### [facility] [address] [place] [address] PH Specimen 2 L Base Prostate Normal [facility] Comment on above: Order Comment: left base x 3 bites Left lateral mid x 3 bites Left apex x 4 bites Performed By: #### 1 [id number] #### [facility] [address] [place] [address] PH Specimen 3 L Lat Apx Prost Normal [facility] Comment on above: Order Comment: left base x 3 bites Left lateral mid x 3 bites Left apex x 4 bites Performed By: #### 1 [id number] #### [facility] [address] [place] [address] PH Specimen 4 L Lat Bse Prost Normal [facility] Comment on above: Order Comment: left base x 3 bites Left lateral mid x 3 bites Left apex x 4 bites Performed By: #### 1 [id number] #### [facility] [address] [place] [address] PH Specimen 5 L Lat Mid Prost Normal [facility] Comment on above: Order Comment: left base x 3 bites Left lateral mid x 3 bites Left apex x 4 bites Performed By: #### 1 [id number] #### [facility] [address] [place] [address] PH Specimen 6 L Mid Prostate Normal [facility] Comment on above: Order Comment: left base x 3 bites Left lateral mid x 3 bites Left apex x 4 bites Performed By: #### 1 [id number] #### [facility] [address] [place] [address] PH Specimen 7 R Apx Prostate Normal [facility] Comment on above: Order Comment: left base x 3 bites Left lateral mid x 3 bites Left apex x 4 bites Performed By: #### 1 [id number] #### [facility] [address] [place] [address] PH Specimen 8 R Base Prostate Normal [facility] Comment on above: Order Comment: left base x 3 bites Left lateral mid x 3 bites Left apex x 4 bites Performed By: #### 1 [id number] #### [facility] [address] [place] [address] PH Specimen 9 R Mid Prostate Normal [facility] Comment on above: Order Comment: left base x 3 bites Left lateral mid x 3 bites Left apex x 4 bites Performed By: #### 1 [id number] #### [facility] [address] [place] [address] PH Type of Service Technical Only Normal [facility] Comment on above: Order Comment: left base x 3 bites Left lateral mid x 3 bites Left apex x 4 bites Performed By: #### 1 [id number] #### [facility] [address] [place] [address] Patient Educationon 01-02-20 Patient Education Oncology Transrectal [...] near your rectum, especially while sitting. ? Adeline-colored urine due to small amounts of blood in your urine. ? A burning feeling while urinating. ? Blood in your stool (feces) or bleeding from your rectum. ? Blood in your semen. Follow these instructions at home: Medicines ? Take tuco-faf-fsxnnwz and prescription medicines only as told by [...] provider. Document Revised: 05/10/2022 Document Reviewed: 05/10/2022 [employer] Patient Education ? 2022 [employer]. Transrectal Ultrasound-Guided Prostate Biopsy A transrectal ultrasound-guided [...] including vitamins, herbs, eye drops, creams, and ncfe-qlj-mffudru medicines. ? Any problems you or family [...] as aspirin (more content not included)... Normal [facility] Office/Clinic Noteon 01-02-2024 Urology Office/Clinic Note [...] of prostate cancer. S/p TRUS/bx 05/17/23 - Hewitt score 6 (3+3) in 2 cores each [...] Reina, URL [facility] [address] [place] [address] [phone] Additional Instructions: sched repeat TRUS/bx Patient Education Transrectal Ultrasound-Guided Prostate Biopsy, Care After Transrectal Ultrasound-Guided Prostate Biopsy Vesta Mcguire, personally scribed for Dr. Vora on 01/02/2024 [...] Emphysema: Father. I (more content not included)... [facility] Comment on above: Result Comment: Elec tronically Signed By: Rufina VORA MD\.br\Date and Time Signed: 01/02/24 13:53 EST\.br\Electronically Co-Signed By: Vesta Cortesbr\Date and Time Co-Signed: 01/02/24 13:52 EST Lab Reportson 12-01-2023 Lab Reports [id number] [facility] Ambulatory Visit Summaryon 0 06-06-2023 Ambulatory Visit Summary MATEO STEARNS :1960 Visit Date:06/06/2023 Ambulatory Visit Instructions Your Diagnosis Prostate cancer Sebaceous cyst Tests Performed Urnls Dip Stick Auto w/o Microscopy POC 18315 Your Care Team Attending Physician - Rufina [...] CHANDLER, Rufina Reina Where: [facility] Patient Educationon 06-06-20 23 Patient Education Oncology [...] under a microscope. This is called the Hewitt score and the total score can range from 6?10, indicating how likely it is that the cancer will spread (metastasize) to other parts of the body. The higher the score, the greater the likelihood that the cancer will spread. ? Hewitt 6 or lower: This indicates that the [...] external be (more content not included)... Normal [facility] Office/Clinic Noteon 06-06-2023 Urology Office/Clinic Note [...] 04/08/23 - 4.46 S/p TRUS/bx 05/17/23 - Hewitt score 6 (3+3) in 2 cores each [...] When Contact Information DIONY CHANDLER, Rufina Reina, FLAQUITO In 6 months [facility] [address], [place] [address]- [phone] Additional Instructions: PSA and ANNE-MARIE Patient Education [...] Cigarettes, 02/07/2023 (more content not included)... Normal [facility] Comment on above: Result Comment: Elec tronically Signed By: Rufina VORA MD\.br\Date and Time Signed: 06/06/23 11:52 EDT\.br\Electronically Co-Signed By: Vesta Cortes\.br\Date and Time Co-Signed: 06/06/23 11:47 EDT PSA, FREE AND TOTAL RATIOon 04-13-2023 % Free PSA 12.1 % Normal [facility] Comment on above: Result Comment: The [...] #### H ISTGAL #### [facility] [address] [place] [address] Dr. James Crowley Prostate specific Ag [Mass/Vol] 3.4 ng/mL Normal 0.0-4.0 [facility] Comment on above: Result Comment: Rosa Elena DESHPANDE methodology. . According to the [place] [employer], Serum PSA should decrease [...] #### H ISTGAL #### [facility] [address] [place] [address] Dr. James Crowley PSA, Free 0.41 ng/mL Normal N/A [facility] Comment on above: Result Comment: Rosa Elena DESHPANDE methodology. Performed By: #### H ISTGAL #### [facility] [address] [place] [address] Dr. James Crowley CBC AUTO DIFFon 04-08-2023 BASO # 0.1 103/ul Normal 0.0-0.1 [facility] Comment on above: Performed By: #### C BC #### [facility] [address] [place] [address] Dr. James Crowley Basophils/100 WBC (Bld) 0.5 % Normal 0.2-2.0 [facility] Comment on above: Performed By: #### C BC #### [facility] [address] [place] [address] Dr. James Crowley EO # 0.1 103/ul Normal 0.0-0.7 [facility] Comment on above: Performed By: #### C BC #### [facility] [address] [place] [address] Dr. James Crowley Eosinophils/100 WBC (Bld) 1.3 % Normal 0.9-7.0 [facility] Comment on above: Performed By: #### C BC #### [facility] [address] [place] [address] Dr. James Crowley Erythrocyte distribution width (RBC) [Ratio] 13.5 % Normal 11.0-15.0 [facility] Comment on above: Performed By: #### C BC #### [facility] [address] [place] [address] Dr. James Crowley Hematocrit (Bld) [Volume fraction] 48.4 % Normal 42.0-54.0 [facility] Comment on above: Performed By: #### C BC #### [facility] [address] [place] [address] Dr. James Crowley Hemoglobin (Bld) [Mass/Vol] 15.6 g/dL Normal 14.0-18.0 [facility] Comment on above: Performed By: #### C BC #### [facility] [address] [place] [address] Dr. James Crowley IG # 0.08 10e3/ul Critically high 0.00-0.03 [facility] Comment on above: Performed By: #### C BC #### [facility] [address] [place] [address] Dr. James Crowley IG % 0.8 % Critically high 0.0-0.5 [facility] Comment on above: Performed By: #### C BC #### [facility] [address] [place] [address] Dr. James Crowley LYMPH # 3.1 103/ul Normal 1.2-3.8 [facility] Comment on above: Performed By: #### C BC #### [facility] [address] [place] [address] Dr. James Crowley Lymphocytes/100 WBC (Bld) 29.8 % Normal 20.5-60.0 [facility] Comment on above: Performed By: #### C BC #### [facility] [address] [place] [address] Dr. James Crowley MANUAL DIFF REQ NO Normal [facility] Comment on above: Performed By: #### C BC #### [facility] [address] [place] [address] Dr. James Crowley MCH (RBC) [Entitic mass] 29.3 pg Normal 25.9-34.0 [facility] Comment on above: Performed By: #### C BC #### [facility] [address] [place] [address] Dr. James Crowley MCHC (RBC) [Mass/Vol] 32.2 g/dL Normal 29.9-35.[address] [facility] Comment on above: Performed By: #### C BC #### [facility] [address] [place] [address] Dr. James Crowley MCV (RBC) [Entitic vol] 90.8 fL Normal 80.0-94.0 [facility] Comment on above: Performed By: #### C BC #### [facility] [address] [place] [address] Dr. James Crowley MONO # 0.6 103/ul Normal 0.3-0.[address] [facility] Comment on above: Performed By: #### C BC #### [facility] [address] [place] [address] Dr. James Crowley Monocytes/100 WBC (Bld) 5.9 % Normal 1.7-12.[address] [facility] Comment on above: Performed By: #### C BC #### [facility] [address] [place] [address] Dr. James Crowley NEUT # 6.4 103/ul Normal 1.4-6.[address] [facility] Comment on above: Performed By: #### C BC #### [facility] [address] [place] [address] Dr. James Crowley Neutrophils/100 WBC (Bld) 61.7 % Normal 43.0-75.[address] [facility] Comment on above: Performed By: #### C BC #### [facility] [address] [place] [address] Dr. James Crowley Platelet mean volume (Bld) [Entitic vol] 9.1 fL Critically low 9.5-13.[address] [facility] Comment on above: Performed By: #### C BC #### [facility] [address] [place] [address] Dr. James Crowley PLT 320 103/ul Normal 150-[address] [facility] Comment on above: Performed By: #### C BC #### [facility] [address] [place] [address] Dr. James Crowley RBC 5.33 106/ul Normal 4.70-6.[address] [facility] Comment on above: Performed By: #### C BC #### [facility] [address] [place] [address] Dr. James Crowley WBC 10.4 103/ul Normal 4.0-11.[address] [facility] Comment on above: Performed By: #### C BC #### [facility] [address] [place] [address] CHEST W CONon [...] MA Date: 2023-04-08 10:41 Normal [facility] LIPID PROFILEon 04-08-2023 CHOL-HDL RATIO NORM SEE BELOW Normal [facility] Comment on above: Result Comment: 3.3 - 4.4 LOW RISK 4.4 - 7.1 AVERAGE RISK 7.1 - 11.0 MODERATE RISK >11.0 HIGH RISK Performed By: #### U NEO, LIPID #### [facility] [address] [place], [place] [address] Dr. James Crowley Cholesterol [Mass/Vol] 204 mg/dL Critically high <=200 [facility] Comment on above: Performed By: #### U NEO, LIPID #### [facility] [address] [place], [place] [address] Dr. James Crowley Cholesterol in HDL [Mass/Vol] 55 mg/dL Normal 40-60 [facility] Comment on above: Performed By: #### U NEO, LIPID #### [facility] [address] [place] [address] [address] James Crowley Cholesterol in LDL [Mass/Vol] 115.2 mg/dL Normal [facility] Comment on above: Performed By: #### U NEO, LIPID #### [facility] [address] [place] [address] [address] James Crowley Cholesterol.total/C holesterol in HDL [Mass ratio] 3.7 {ratio} Normal [facility] Comment on above: Performed By: #### U NEO, LIPID #### [facility] [address] [place] [address] [address] James Crowely HDL NORMAL > or = 60 mg/dl - LO W CARDIOVASCULAR RISK <40 mg/dl - HIGH CARDIOVASCULAR RISK Normal [facility] Comment on above: Performed By: #### U NEO, LIPID #### [facility] [address] [place] [address] [address] James Crowley LDL CALC NORMAL SEE BELOW Normal [facility] Comment on above: Result Comment: <100 mg/dl OPTIMAL 100 - 129 mg/dl NEAR OR ABOVE OPTIMAL 130 - 159 mg/dl BORDERLINE HIGH 160 - 189 mg/dl HIGH >190 mg/dl VERY HIGH Performed By: #### U NEO, LIPID #### [facility] [address] [address] [address] James Crowley Triglyceride [Mass/Vol] 169 mg/dL Critically high <=[address] [facility] Comment on above: Performed By: #### U NEO, LIPID #### [facility] [address] [place] [address] [address] James Crowley VLDL CALC 33.8 mg/dL Normal [facility] Comment on above: Performed By: #### U NEO, LIPID #### [facility] [address] [id number] James Crowley PROF 14(COMP METB)on 023 Albumin [Mass/Vol] 3.7 g/dL Normal 3.4-5.0 [facility] Comment on above: Performed By: #### U NEO, LIPID #### [facility] [address] [address] [address] James Crowley Albumin/Globulin [Mass ratio] 0.9 {ratio} Normal [facility] Comment on above: Performed By: #### U NEO, LIPID #### [facility] [address] [place] [address] [address] James Crowley ALP [Catalytic activity/Vol] 86 U/L Normal 46-116 [facility] Comment on above: Performed By: #### U NEO, LIPID #### [facility] [address] [address] [address] James Crowley ALT [Catalytic activity/Vol] 33 U/L Normal 16-63 [facility] Comment on above: Performed By: #### U NEO, LIPID #### [facility] [address] [place] [address] Dr. James Crowley Anion gap [Moles/Vol] 14.8 mmol/L Normal [facility] Comment on above: Performed By: #### U NEO, LIPID #### [facility] [address] [place] [address] Dr. James Crowley AST [Catalytic activity/Vol] 16 U/L Normal 15-37 [facility] Comment on above: Performed By: #### U NEO, LIPID #### [facility] [address] [place] [address] Dr. James Crowley Bilirubin [Mass/Vol] 0.7 mg/dL Normal 0.2-1.0 [facility] Comment on above: Performed By: #### U NEO, LIPID #### [facility] [address] [place] [address] Dr. James Crowley Calcium [Mass/Vol] 9.1 mg/dL Normal 8.5-10.1 [facility] Comment on above: Performed By: #### U NEO, LIPID #### [facility] [address] [place] [address] Dr. James Crowley Chloride [Moles/Vol] 107 mmol/L Normal 98-107 [facility] Comment on above: Performed By: #### U NEO, LIPID #### [facility] [address] [address] [address] James Crowley CO2 [Moles/Vol] 28.0 mmol/L Normal 21.0-32.0 [facility] Comment on above: Performed By: #### U NEO, LIPID #### [facility] [address] [place] [address] Dr. James Crowley Creatinine [Mass/Vol] 1.10 mg/dL Normal 0.70-1.[address] [facility] Comment on above: Performed By: #### U NEO, LIPID #### [facility] [address] [place] [address] Dr. James Crowley EGFR-AF NIGERIAN >60 Normal >=60 [facility] Comment on above: Performed By: #### U NEO, LIPID #### [facility] [address] [place] [address] Dr. James Crowley EGFR-NON AF NIGERIAN >60 Normal >=[address] [facility] Comment on above: Performed By: #### U NEO, LIPID #### [facility] [address] [place] [address] Dr. James Crowley Globulin (S) [Mass/Vol] 3.9 g/dL Normal [facility] Comment on above: Performed By: #### U NEO, LIPID #### [facility] [address] [place] [address] Dr. James Crowley Glucose [Mass/Vol] 98 mg/dL Normal 74-106 [facility] Comment on above: Performed By: #### U NEO, LIPID #### [facility] [address] [place] [address] Dr. James Crowley Potassium [Moles/Vol] 3.8 mmol/L Normal 3.5-5.[address] [facility] Comment on above: Performed By: #### U NEO, LIPID #### [facility] [address] [place] [address] Dr. James Crowley Protein [Mass/Vol] 7.6 g/dL Normal 6.4-8.2 [facility] Comment on above: Performed By: #### U NEO, LIPID #### [facility] [address] [place] [address] Dr. James Crowley Sodium [Moles/Vol] 146 mmol/L Critically high 136-145 [facility] Comment on above: Performed By: #### U NEO, LIPID #### [facility] [address] [address] [address] James Crowley Urea nitrogen [Mass/Vol] 18.0 mg/dL Normal 7.0-18.0 [facility] Comment on above: Performed By: #### U NEO, LIPID #### [facility] [address] [address] [address] James Crowley Urea nitrogen/Creatinine [Mass ratio] 16.4 mg/mg Normal [facility] Comment on above: Performed By: #### U NEO, LIPID #### [facility] [address] [place] [address] Dr. James Crowley URIC ACID SERUMon 04-08-2023 Urate [Mass/Vol] 6.7 mg/dL Normal 3.5-7.2 [facility] Comment on above: Performed By: #### U NEO, LIPID #### [facility] [address] [place] [address] CHEST WO CONon [...] LEONOR MA Date: 2023-01-04 10:52 Normal [facility] CT CHEST WO CONon 10-07-2022 CT [...] 2022-10-07 16:05 Normal [facility] ACID FAST SMEAR AND CXon Acid Fast Culture Negative Normal [facility] Comment on above: Result Comment: No a tomi fast bacilli isolated after 6 weeks. Performed By: #### U NEO, LIPID #### [facility] [address] [address] [address] James Crowley Acid Fast Smear Negative Normal [facility] Comment on above: Performed By: #### U NEO, LIPID #### [facility] [address] [address] [address] James Crowley AF[employer] Specimen Processing Concentration Normal [facility] Comment on above: Performed By: #### U NEO, LIPID #### [facility] [address] [address] [address] James Crowley FUNGAL AB QUANTITAIVE DOUBLE IMMUNODIFFUon 08-22-2022 Aspergillus flavus Negative Normal Neg:<1:1 [facility] Comment on above: Performed By: #### F UNGUYI #### [facility] [address] [address] [address] James Crowley Aspergillus fumigatus Negative Normal Neg:<1:1 [facility] Comment on above: Performed By: #### F UNGUYI #### [facility] [address] [address] [address] James Crowley Aspergillus niger Negative Normal Neg:<1:1 [facility] Comment on above: Performed By: #### F UNGUYI #### [facility] [address] [address] [address] James Crowley Blastomyces Negative Normal Neg:<1:1 [facility] Comment on above: Performed By: #### F UNGUYI #### [facility] [address] [place] [address] Dr. James Crowley COXSACKIE B VIRUS ANTIBODIES on 08-21-2022 Coxsackie B-1 Ab Negative Normal Neg:<1:8 [facility] Comment on above: Performed By: #### C OXSBV #### [facility] [address] [place] [address] Dr. James Crowley Coxsackie B-2 Ab Negative Normal Neg:<1:8 [facility] Comment on above: Performed By: #### C OXSBV #### [facility] [address] [address] [address] James Crowley coxsackie B-3 Ab Negative Normal Neg:<1:8 [facility] Comment on above: Performed By: #### C OXSBV #### [facility] [address] [address] [address] James Crowley Coxsackie B-4 Ab Negative Normal Neg:<1:8 [facility] Comment on above: Performed By: #### C OXSBV #### [facility] [address] [place] [address] Dr. James Crowley Coxsackie B-5 Ab Negative Normal Neg:<1:8 [facility] Comment on above: Performed By: #### C OXSBV #### [facility] [address] [place] [address] Dr. James Crowley Coxsackie B-6 Ab Negative Normal Neg:<1:8 [facility] Comment on above: Performed By: #### C OXSBV #### [facility] [address] [place] [address] Dr. James Crowley HISTOPLASMA CAP AB QUANT DID on 08-21-2022 Histoplasma Mycelial CF Ab. Negative Normal Neg:<1:2 [facility] Comment on above: Performed By: #### H ISTGAL #### [facility] [address] [place] [address] Dr. James Crowley Histoplasma Yeast CF Ab Negative Normal Neg:<1:[address] [facility] Comment on above: Performed By: #### H ISTGAL #### [facility] [address] [place] [address] Dr. James Crowley COXSACKIE A VIRUS AB IGMon 0 08-20-2022 Cox[place]ie A16 IgM Negative Normal Neg:<1:10 [facility] Comment on above: Performed By: #### C OXSIGM #### [facility] [address] [place] [address] Dr. James Crowley Coxsackie A24 IgM Negative Normal Neg:<1:10 [facility] Comment on above: Performed By: #### C OXSIGM #### [facility] [address] [place] [address] Dr. James Crowley Coxsackie A7 IgM Negative Normal Neg:<1:10 [facility] Comment on above: Performed By: #### C OXSIGM #### [facility] [address] [place] [address] Dr. James Crowley Coxsackie A9 IgM Negative Normal Neg:<1:10 [facility] Comment on above: Performed By: #### C OXSIGM #### [facility] [address] [place] [address] Dr. James Crowley HISTOPLASMA GALACTOMANNAN AG URINEon 08-20-2022 Histoplasma Gal'shwteha Ag <0.5 Normal <0.5 ng/mL [facility] Comment on above: Performed By: #### H ISTGAL #### [facility] [address] [place] [address] Dr. James Crowley QUANTIFERON TB GOLD PLUSon 0 08-20-2022 QuantiFERON Criteria Comment [facility] Comment on above: Result Comment: Vick [...] #### Q NTTB #### [facility] [address] [place] [address] Dr. James Crowley QuantiFERON Incubation Incubation performed. Normal [facility] Comment on above: Performed By: #### Q NTTB #### [facility] [address] [place] [address] Dr. James Crowley QuantiFERON Mitogen Value >10.00 Normal [facility] Comment on above: Performed By: #### Q NTTB #### [facility] [address] [place] [address] Dr. James Crowley QuantiFERON Nil Value 0.04 IU/mL [facility] [facility] Comment on above: Performed By: #### Q NTTB #### [facility] [address] [place] [address] Dr. James Crowley QuantiFERON TB1 Ag Value 0.04 IU/mL Normal [facility] Comment on above: Performed By: #### Q NTTB #### [facility] [address] [place] [address] Dr. James Crowley QuantiFERON TB2 Ag Value 0.05 IU/mL Normal [facility] Comment on above: Performed By: #### Q NTTB #### [facility] [address] [place] [address] Dr. James Crwoley QuantiFERON-TB Gold Plus Negative Normal Negative [facility] Comment on above: Result Comment: No r esponse to M tuberculosis antigens detected. Infection with M tuberculosis is unlikely, but high risk individuals should be considered for additional testing (ATS/IDSA/CDC Clinical Practice Guidelines, 2017). The reference range is an Antigen minus Nil result of <0.35 IU/mL. Chemiluminescence immunoassay methodology Performed By: #### Q NTTB #### [facility] [address] [place] [address] Dr. James Crowley CREATININEon 08-18-2022 Creatinine [Mass/Vol] 0.97 mg/dL Normal 0.70-1.30 [facility] Comment on above: Performed By: #### H ISTGAL #### [facility] [address] [place] [address] Dr. James Crowley EGFR-AF NIGERIAN >60 Normal >=60 [facility] Comment on above: Performed By: #### H ISTGAL #### [facility] [address] [place] [address] Dr. James Crowley EGFR-NON AF NIGERIAN >60 Normal >=60 [facility] Comment on above: Performed By: #### H ISTGAL #### [facility] [address] [place] [address] CHEST W CONon 08-18-2022 CT CHEST [...] 2022-08-18 10:27 Normal [address] [facility] CULTURE SPUTUMon 08-18-2022 CULTURE SPUTUM Isolate 1 Haemophilus parainfluenzae Moderate growth of Normal The [facility] Comment on above: Result Comment: Beta -Lactamase: Negative Performed By: #### H ISTGAL #### [facility] [address] [address] [address] James Crowley SPUTUM GRAM STAINon 08-18-20 22 COMMENTS Normal [facility] Comment on above: Performed By: #### H ISTGAL #### [facility] [address] [address] [address] James Crowley DIPHTHEROIDS Normal The [facility] Comment on above: Performed By: #### H ISTGAL #### [facility] [address] [address] [address] James Crowley EPITHELIALS <25 Normal [address] [facility] Comment on above: Performed By: #### H ISTGAL #### [facility] [address] [address] [address] James Crowley FUNGAL ELEMENTS Normal [facility] Comment on above: Performed By: #### H ISTGAL #### [facility] [address] [address] [address] James Crowley GRAM NEG BACILLI Normal [facility] Comment on above: Performed By: #### H ISTGAL #### [facility] [address] [address] [address] James Crowley GRAM NEG DIPPLOCOCCI FEW Normal The [facility] Comment on above: Performed By: #### H ISTGAL #### [facility] [address] [address] [address] James Crowley GRAM POS BACILLI Normal [facility] Comment on above: Performed By: #### H ISTGAL #### [facility] [address] [address] [address] James Crowley GRAM POSITIVE COCCI FEW Normal [facility] Comment on above: Performed By: #### H ISTGAL #### [facility] [address] [address] [address] James Crowley WBC (Bld) [#/Vol] 10*3/uL Normal [facility] Comment on above: Performed By: #### H ISTGAL #### [facility] [address] [address] [address] James Crowley XR RIBS RT PA [...] 2022-08-12 13:02 Normal [address] [facility] Covid-19 PCR (CVDTBH)on SARS-CoV-2 (COVID-19) RNA SOURAV+probe Ql (Unsp spec) Not detected Normal NOT DETECTED The [facility] Comment on above: Result Comment: When [...] for this test is supported by the [employer] of Health and Human Service's declaration that [...] longer be used). Performed By: #### [facility] #### [facility] [address] [place] [address] Dr. James Rey 03-24-2021 L - -------- Specimen: [id number] Received: 03/24/21 Status: [place] Nix Num: [id number] Spec Type: Surgical Subm Dr: Bryan Quick MD Tissues: A Skin-Other than Cyst, tag, debridement or plastic repair (LT NASAL DORSUM) Procedures: HE Stain, Gross/Micro L4 -------- Patient Age/Sex Location Account Attending Physician -------- Mateo Stearns 60/M [place] [id number] Bryan Quick MD -------- SPEC NUM: [id number] RECD: 03/24/21 STATUS: [place] BISI NUM: [id number] FRANCISCA: 03/24/[address] [facility] [address]: Bryan Quick MD ENTERED: 03/24/[address] [facility] [address]: MYAH TYPE: Surgical DEPT: S ORDERED: [...] microscopic findings support the above pathologic diagnosis. [id number] -------- -------- Specimen: [id number] Received: 03/24/21 Status: [place] Nix Num: [id number] Spec Type: Surgical Subm Dr: Bryan Quick MD Tissues: A Skin-Other than Cyst, tag, debridement or plastic repair (LT NASAL DORSUM) Procedures: HE Stain, Gross/Micro L4 -------- Patient: Mateo Stearns [id number] (Continued) -------- Signed (signature on file) Cindy Garcia MD 03/25/21 9127 [facility] Vital Signs Date Time Vital Sign Value Performing Clinician Facility 12-12-2024 09:53-0500 Body mass index (BMI) [Ratio] 22.69 kg/m2 MEI Dent MD Work Phone: [facility] 12-12-2024 09:53-0500 Body temperature 98.71 [degF] MEI Dent MD Work Phone: [facility] 12-12-2024 09:53-0500 Body weight 65.7 kg MEI Dent MD Work Phone: [facility] 12-12-2024 09:53-0500 Diastolic blood pressure 88 mm[Hg] MEI Dent MD Work Phone: [facility] 12-12-2024 09:53-0500 Heart rate 81 /min MEI Dent MD Work Phone: [facility] 12-12-2024 09:53-0500 Respiratory rate 18 /min MEI Dent MD Work Phone: [facility] 12-12-2024 09:53-0500 SaO2% (BldA) [Mass fraction] 90 % MEI Dent MD Work Phone: [facility] 12-12-2024 09:53-0500 Systolic blood pressure 131 mm[Hg] MEI Dent MD Work Phone: [facility] 11-02-2024 10:33-0500 Body temperature 98.4 [degF] MEI Dent MD Work Phone: [facility] 11-02-2024 10:33-0500 Diastolic blood pressure 82 mm[Hg] MEI Dent MD Work Phone: [facility] 11-02-2024 10:33-0500 Heart rate 100 /min EMI Dent MD Work Phone: [facility] 11-02-2024 10:33-0500 Respiratory rate 18 /min MEI Dent MD Work Phone: [facility] 11-02-2024 10:33-0500 SaO2% (BldA) [Mass fraction] 97 % MEI Dent MD Work Phone: [facility] 11-02-2024 10:33-0500 Systolic blood pressure 118 mm[Hg] MEI Dent MD Work Phone: [facility] 10-29-2024 10:28-0500 Body mass index (BMI) [Ratio] 23.38 kg/m2 MEI Dent MD Work Phone: [facility] 10-29-2024 10:28-0500 Body temperature 97.9 [degF] MEI Dent MD Work Phone: [facility] 10-29-2024 10:28-0500 Body weight 67.7 kg MEI Dent MD Work Phone: [facility] 10-29-2024 10:28-0500 Diastolic blood pressure 84 mm[Hg] MEI Dent MD Work Phone: [facility] 10-29-2024 10:28-0500 Heart rate 81 /min MEI Dent MD Work Phone: [facility] 10-29-2024 10:28-0500 Respiratory rate 18 /min MEI Dent MD Work Phone: [facility] 10-29-2024 10:28-0500 SaO2% (BldA) [Mass fraction] 95 % MEI Dent MD Work Phone: [facility] 10-29-2024 10:28-0500 Systolic blood pressure 126 mm[Hg] MEI Dent MD Work Phone: [facility] 10-22-2024 10:26-0500 Body mass index (BMI) [Ratio] 23.34 kg/m2 MEI Dent MD Work Phone: [facility] 10-22-2024 10:26-0500 Body temperature 97.11 [degF] MEI Dent MD Work Phone: [facility] 10-22-2024 10:26-0500 Body weight 67.6 kg MEI Dent MD Work Phone: [facility] 10-22-2024 10:26-0500 Diastolic blood pressure 81 mm[Hg] MEI Dent MD Work Phone: [facility] 10-22-2024 10:26-0500 Heart rate 71 /min MEI Dent MD Work Phone: [facility] 10-22-2024 10:26-0500 Respiratory rate 18 /min MEI Dent MD Work Phone: [facility] 10-22-2024 10:26-0500 SaO2% (BldA) [Mass fraction] 91 % MEI Dent MD Work Phone: [facility] 10-22-2024 10:26-0500 Systolic blood pressure 127 mm[Hg] MEI Dent MD Work Phone: [facility] 10-16-2024 10:59-0500 Body height 175.3 cm Kathie Sánchez WIND COMMISSIONING TECHNICIAN Work Phone: [facility] 10-16-2024 10:59-0500 Body mass index (BMI) [Ratio] 22.21 kg/m2 Kathie Princess WIND COMMISSIONING TECHNICIAN Work Phone: [facility] 10-16-2024 10:59-0500 Body temperature 98.01 [degF] Kathie Princess WIND COMMISSIONING TECHNICIAN Work Phone: [facility] 10-16-2024 10:59-0500 Body weight 68.22 kg Kathie Princess WIND COMMISSIONING TECHNICIAN Work Phone: [facility] 10-16-2024 10:59-0500 Diastolic blood pressure 78 mm[Hg] Kathie Princess WIND COMMISSIONING TECHNICIAN Work Phone: [facility] 10-16-2024 10:59-0500 Heart rate 78 /min Kathie Princess WIND COMMISSIONING TECHNICIAN Work Phone: [facility] 10-16-2024 10:59-0500 Respiratory rate 20 /min Kathie Princess WIND COMMISSIONING TECHNICIAN Work Phone: [facility] 10-16-2024 10:59-0500 SaO2% (BldA) [Mass fraction] 92 % Kathie Huntermaciel WIND COMMISSIONING TECHNICIAN Work Phone: [facility] 10-16-2024 10:59-0500 Systolic blood pressure 110 mm[Hg] Kathie Richemmaciel WIND COMMISSIONING TECHNICIAN Work Phone: [facility] 10-15-2024 10:45-0500 Body mass index (BMI) [Ratio] 23.45 kg/m2 MEI Dent MD Work Phone: [facility] 10-15-2024 10:45-0500 Body temperature 97.81 [degF] MEI Dent MD Work Phone: [facility] 10-15-2024 10:45-0500 Body weight 67.9 kg MEI Dent MD Work Phone: [facility] 10-15-2024 10:45-0500 Diastolic blood pressure 81 mm[Hg] MEI Dent MD Work Phone: [facility] 10-15-2024 10:45-0500 Heart rate 87 /min MEI Dent MD Work Phone: [facility] 10-15-2024 10:45-0500 Respiratory rate 16 /min MEI Dent MD Work Phone: [facility] 10-15-2024 10:45-0500 SaO2% (BldA) [Mass fraction] 95 % MEI Dent MD Work Phone: [facility] 10-15-2024 10:45-0500 Systolic blood pressure 121 mm[Hg] MEI Dent MD Work Phone: [facility] 10-08-2024 10:34-0500 Body mass index (BMI) [Ratio] 23.69 kg/m2 MEI Dent MD Work Phone: [facility] 10-08-2024 10:34-0500 Body temperature 96.69 [degF] MEI Dent MD Work Phone: [facility] 10-08-2024 10:34-0500 Body weight 68.6 kg MEI Dent MD Work Phone: [facility] 10-08-2024 10:34-0500 Diastolic blood pressure 76 mm[Hg] MEI Dent MD Work Phone: [facility] 10-08-2024 10:34-0500 Heart rate 103 /min MEI Dent MD Work Phone: [facility] 10-08-2024 10:34-0500 Respiratory rate 18 /min MEI Dent MD Work Phone: [facility] 10-08-2024 10:34-0500 SaO2% (BldA) [Mass fraction] 90 % MEI Dent MD Work Phone: [facility] 10-08-2024 10:34-0500 Systolic blood pressure 165 mm[Hg] MEI Dent MD Work Phone: [facility] 10-01-2024 10:42-0500 Body mass index (BMI) [Ratio] 23.34 kg/m2 MEI Dent MD Work Phone: [facility] 10-01-2024 10:42-0500 Body temperature 97.9 [degF] MEI Dent MD Work Phone: [facility] 10-01-2024 10:42-0500 Body weight 67.6 kg MEI Dent MD Work Phone: [facility] 10-01-2024 10:42-0500 Diastolic blood pressure 83 mm[Hg] MEI Dent MD Work Phone: [facility] 10-01-2024 10:42-0500 Heart rate 99 /min MEI Dent MD Work Phone: [facility] 10-01-2024 10:42-0500 Respiratory rate 18 /min MEI Dent MD Work Phone: [facility] 10-01-2024 10:42-0500 SaO2% (BldA) [Mass fraction] 87 % MEI Dent MD Work Phone: [facility] Comment on above: Wearing mask, Normal for him with mask o n 10-01-2024 10:42-0500 Systolic blood pressure 129 mm[Hg] MEI Dent MD Work Phone: [facility] 09-25-2024 14:15-0400 Body mass index (BMI) [Ratio] 23.17 kg/m2 MEI Dent MD Work Phone: [facility] 09-25-2024 14:15-0400 Body weight 67.1 kg MEI Dent MD Work Phone: [facility] 09-13-2024 10:27-0400 Body height 175.3 cm Kathie Sánchez WIND COMMISSIONING TECHNICIAN Work Phone: [facility] 09-13-2024 10:27-0400 Body mass index (BMI) [Ratio] 21.8 kg/m2 Kathie Princess WIND COMMISSIONING TECHNICIAN Work Phone: [facility] 09-13-2024 10:27-0400 Body temperature 98.4 [degF] Kathie Princess WIND COMMISSIONING TECHNICIAN Work Phone: [facility] 09-13-2024 10:27-0400 Body weight 66.95 kg Kathie Princess WIND COMMISSIONING TECHNICIAN Work Phone: [facility] 09-13-2024 10:27-0400 Heart rate 96 /min Kathie Marimarz WIND COMMISSIONING TECHNICIAN Work Phone: [facility] 09-13-2024 10:27-0400 Respiratory rate 10 /min Kathie Marimarz WIND COMMISSIONING TECHNICIAN Work Phone: [facility] 09-13-2024 10:27-0400 SaO2% (BldA) [Mass fraction] 97 % Kathie Princess WIND COMMISSIONING TECHNICIAN Work Phone: [facility] 09-11-2024 13:33-0400 Body mass index (BMI) [Ratio] 23.51 kg/m2 MEI Dent MD Work Phone: [facility] 09-11-2024 13:33-0400 Body temperature 97.81 [degF] MEI Dent MD Work Phone: [facility] 09-11-2024 13:33-0400 Body weight 68.1 kg MEI Dent MD Work Phone: [facility] 09-11-2024 13:33-0400 Diastolic blood pressure 82 mm[Hg] MEI Dent MD Work Phone: [facility] 09-11-2024 13:33-0400 Heart rate 80 /min MEI Dent MD Work Phone: [facility] 09-11-2024 13:33-0400 Respiratory rate 18 /min MEI Dent MD Work Phone: [facility] 09-11-2024 13:33-0400 SaO2% (BldA) [Mass fraction] 94 % MEI Dent MD Work Phone: [facility] 09-11-2024 13:33-0400 Systolic blood pressure 146 mm[Hg] MEI Dent MD Work Phone: [facility] 07-12-2024 13:06-0400 Body mass index (BMI) [Ratio] 23.41 kg/m2 MEI Dent MD Work Phone: [facility] 07-12-2024 13:06-0400 Body temperature 98.1 [degF] MEI Dent MD Work Phone: [facility] 07-12-2024 13:06-0400 Body weight 67.8 kg MEI Dent MD Work Phone: [facility] 07-12-2024 13:06-0400 Diastolic blood pressure 83 mm[Hg] MEI Dent MD Work Phone: [facility] 07-12-2024 13:06-0400 Heart rate 95 /min MEI Dent MD Work Phone: [facility] 07-12-2024 13:06-0400 Respiratory rate 18 /min MEI Dent MD Work Phone: [facility] 07-12-2024 13:06-0400 SaO2% (BldA) [Mass fraction] 95 % MEI Dent MD Work Phone: [facility] 07-12-2024 13:06-0400 Systolic blood pressure 157 mm[Hg] NA Manolo CHANDLER Work Phone: [facility] 06-21-2024 13:13-0400 Body height 170.2 cm NA Manolo CHANDLER Work Phone: [facility] 06-21-2024 13:13-0400 Body mass index (BMI) [Ratio] 23.41 kg/m2 MEI Dent MD Work Phone: [facility] 06-21-2024 13:13-0400 Body temperature 97.5 [degF] NA Manolo CHANDLER Work Phone: [facility] 06-21-2024 13:13-0400 Body weight 67.8 kg MEI Dent MD Work Phone: [facility] 06-21-2024 13:13-0400 Diastolic blood pressure 75 mm[Hg] MEI Dent MD Work Phone: [facility] 06-21-2024 13:13-0400 Heart rate 86 /min MEI Dent MD Work Phone: [facility] 06-21-2024 13:13-0400 Respiratory rate 20 /min MEI Dent MD Work Phone: [facility] 06-21-2024 13:13-0400 SaO2% (BldA) [Mass fraction] 95 % MEI Dent MD Work Phone: [facility] 06-21-2024 13:13-0400 Systolic blood pressure 124 mm[Hg] MEI Dent MD Work Phone: [facility] 06-01-2024 13:13-0400 Body height 175.3 cm Amandeep Crisostomo MD Work Phone: [facility] 06-01-2024 13:13-0400 Body mass index (BMI) [Ratio] 22.14 kg/m2 Amandeep Crisostomo MD Work Phone: [facility] 06-01-2024 13:13-0400 Body weight 68 kg Amandeep Crisostomo MD Work Phone: [facility] 06-01-2024 13:13-0400 Diastolic blood pressure 81 mm[Hg] Amandeep Crisostomo MD Work Phone: [facility] 06-01-2024 13:13-0400 Heart rate 88 /min Amandeep Crisostomo MD Work Phone: [facility] 06-01-2024 13:13-0400 Systolic blood pressure 138 mm[Hg] Amandeep Crisostomo MD Work Phone: [facility] 05-21-2024 11:35-0400 Blood Pressure Location Rufina VORA [facility] 05-21-2024 11:35-0400 Body temperature 98.6 [degF] Rufina VORA [facility] 05-21-2024 11:35-0400 Diastolic blood pressure 84 mm[Hg] Rufina VORA [facility] 05-21-2024 11:35-0400 Heart rate 76 /min Rufina VORA [facility] 05-21-2024 11:35-0400 Respiratory rate 16 /min Rufina VORA [facility] 05-21-2024 11:35-0400 Systolic blood pressure 139 mm[Hg] Rufina VORA [facility] 06-06-2023 10:36-0400 Blood Pressure Location Rufina VORA [facility] 06-06-2023 10:36-0400 Diastolic blood pressure 76 mm[Hg] Rufina VORA [facility] 06-06-2023 10:36-0400 Heart rate 72 /min Rufina VORA [facility] 06-06-2023 10:36-0400 Respiratory rate 16 /min Rufina VORA [facility] 06-06-2023 10:36-0400 Systolic blood pressure 130 mm[Hg] Rufina VORA [facility] 02-07-2023 12:42-0400 Blood Pressure Location Rufina VORA [facility] 02-07-2023 12:42-0400 Diastolic blood pressure 77 mm[Hg] Rufina VORA [facility] 02-07-2023 12:42-0400 Heart rate 74 /min Rufina VORA [facility] 02-07-2023 12:42-0400 Systolic blood pressure 138 mm[Hg] Rufina VORA [facility] 05-17-2022 12:56-0400 Blood Pressure Location Rufina VORA [facility] 05-17-2022 12:56-0400 Diastolic blood pressure 87 mm[Hg] Rufina VORA [facility] 05-17-2022 12:56-0400 Heart rate 79 /min Rufina VORA [facility] 05-17-2022 12:56-0400 Respiratory rate 16 /min Rufina VORA [facility] 05-17-2022 12:56-0400 Systolic blood pressure 139 mm[Hg] Rufina VORA [facility] Encounters Encounter Date Encounter Type Care Provider Facility Start: 01-11-2025 ambulatory Rufina Omalleyi ty:[facility] Start: 01-02-2025 End: 01-02-2025 Bamboo flowsheet Karen Valdovinos DO Work Phone: [facility] Start: 01-02-2025 End: 01-02-2025 Bamboo flowsheet Karen Valdovinos DO Work Phone: [facility] Start: 01-02-2025 End: 01-02-2025 ambulatory KAREN VALDOVINOS Not Available Start: 12-12-2024 End: 12-12-2024 ambulatory Severo DENT Facility:[facility] Start: 12-12-2024 End: 12-12-2024 Patient encounter procedure Severo Dent MD Work Phone: [facility] Comment on above: Malignant neoplasm o f prostate (HCC) (Primary Dx) Start: 12-05-2024 End: 12-05-2024 Clinisync Result Encounter Generic External Data Provider [facility] External Department Unsolicited Start: 12-05-2024 End: 12-05-2024 Clinisync Result Encounter Generic External Data Provider [facility] External Department Unsolicited Start: 11-26-2024 End: 11-26-2024 Social Work [facility] H[facility] Start: 11-02-2024 End: 11-09-2024 Radiation Oncology Note Severo Dent MD Work Phone: [facility] Comment on above: Completion Note Start: 11-02-2024 End: 11-09-2024 Patient encounter procedure Severo Dent MD Work Phone: [facility] Comment on above: Malignant neoplasm o f prostate (HCC) (Primary Dx) Start: 11-02-2024 End: 11-02-2024 ambulatory Severo DENT Facility:[facility] Start: 11-01-2024 End: 11-01-2024 ambulatory Severo DENT Facility:[facility] Start: 10-31-2024 End: 10-31-2024 ambulatory Severo DENT Facility:[facility] Start: 10-30-2024 End: 10-30-2024 ambulatory Severo DENT Facility:[facility] Start: 10-29-2024 End: 10-29-2024 Patient encounter procedure Severo Dent MD Work Phone: [facility] Comment on above: Malignant neoplasm o f prostate (HCC) (Primary Dx) Start: 10-29-2024 End: 10-29-2024 ambulatory Severo DENT Facility:[facility] Start: 10-26-2024 End: 10-26-2024 Social Work [facility] H[facility]/On[facility] Start: 10-24-2024 End: 10-24-2024 ambulatory Severo DENT Facility:[facility] Start: 10-23-2024 End: 10-23-2024 ambulatory Severo DENT Facility:[facility] Start: 10-22-2024 End: 10-22-2024 Patient encounter procedure Severo Dent MD Work Phone: [facility] Comment on above: Malignant neoplasm o f prostate (HCC) (Primary Dx) Start: 10-22-2024 End: 10-22-2024 ambulatory Severo DENT Facility:[facility] Start: 10-21-2024 End: 10-21-2024 ambulatory Severo DENT Facility:[facility] Start: 10-19-2024 End: 10-19-2024 ambulatory Severo DENT Facility:[facility] Start: 10-18-2024 End: 10-18-2024 ambulatory Severo DENT Facility:[facility] Start: 10-17-2024 End: 10-17-2024 ambulatory Severo DENT Facility:[facility] Start: 10-16-2024 End: 10-16-2024 Bamboo flowsheet Kathie Sánchez NP Work Phone: [facility] Start: 10-16-2024 End: 10-16-2024 Bamboo flowsheet Kathie Sánchez WIND COMMISSIONING TECHNICIAN Work Phone: [facility] Start: 10-16-2024 End: 10-16-2024 Office outpatient visit 15 minutes Kathie Sánchez NP Work Phone: [facility] Comment on above: DDD (degenerative di sc disease), cervical (Primary Dx); Atrial fibrillation (CMS/HCC); Gastro-esophageal reflux disease without esophagitis; Prostate cancer (CMS/HCC) Start: 10-16-2024 End: 10-16-2024 ambulatory Severo DENT Facility:[facility] Start: 10-15-2024 End: 10-15-2024 Patient encounter procedure Severo Dent MD Work Phone: [facility]cology Comment on above: Malignant neoplasm o f prostate (HCC) (Primary Dx) Start: 10-15-2024 End: 10-15-2024 ambulatory Severo DENT Facility:[facility] Start: 10-12-2024 End: 10-12-2024 ambulatory Severo PEREZLatosha Facility:[facility] Start: 10-11-2024 End: 10-11-2024 Clinisync Result Encounter Generic External Data Provider [facility] External Department Unsolicited Start: 10-11-2024 End: 10-11-2024 Clinisync Result Encounter Generic External Data Provider [facility] External Department Unsolicited Start: 10-11-2024 End: 10-11-2024 Patient encounter procedure Lab/Jacky Perez Work Phone: [facility]cology Comment on above: Malignant neoplasm o f prostate (HCC) Start: 10-11-2024 End: 10-11-2024 ambulatory Severo DENT Facility:[facility] Start: 10-10-2024 End: 10-10-2024 ambulatory [facility]ENT [facility] [facility] Start: 10-09-2024 End: 10-09-2024 ambulatory Severo GOPAL DENT Facility:[facility] Start: 10-08-2024 End: 10-08-2024 Patient encounter procedure Severo Dent MD Work Phone: Radiation Oncology Comment on above: Malignant neoplasm o f prostate (HCC) (Primary Dx) Start: 10-08-2024 End: 10-08-2024 ambulatory Severo GOPAL DENT Facility:[facility] Start: 10-05-2024 End: 10-05-2024 ambulatory Severo GOPAL DENT Facility:[facility] Start: 10-04-2024 End: 10-05-2024 ambulatory KATHIE SÁNCHEZ Facility:[facility] Start: 10-04-2024 End: 10-04-2024 Patient encounter procedure Lab/Port Rajesh Perez Work Phone: Radiation Oncology Comment on above: Malignant neoplasm o f prostate (HCC) Start: 10-04-2024 End: 10-04-2024 Clinisync Result Encounter Generic External Data Provider [facility] External Department Unsolicited Start: 10-04-2024 End: 10-04-2024 Clinisync Result Encounter Generic External Data Provider [facility] External Department Unsolicited Start: 10-03-2024 End: 10-03-2024 ambulatory Severo DENT Facility:[facility] Start: 10-02-2024 End: 10-02-2024 ambulatory Severo DENT Facility:[facility] Start: 10-01-2024 End: 10-01-2024 Patient encounter procedure Severo Dent MD Work Phone: Radiation Oncology Comment on above: Malignant neoplasm o f prostate (HCC) (Primary Dx) Start: 10-01-2024 End: 10-01-2024 ambulatory Severo DENT Facility:[facility] Start: 09-28-2024 End: 09-28-2024 ambulatory Severo DENT Facility:[facility] Start: 09-27-2024 End: 09-27-2024 ambulatory Severo DENT Facility:[facility] Start: 09-26-2024 End: 09-26-2024 ambulatory Severo DENT Facility:[facility] Start: 09-25-2024 End: 09-25-2024 Social Work [facility] Hematology/Oncology Comment on above: Malignant neoplasm o f prostate (HCC) (Primary Dx) Start: 09-24-2024 End: 09-24-2024 Telephone encounter Severo Dent MD Work Phone: Radiation Oncology Comment on above: Orders (CBC ) Start: 09-18-2024 End: 09-18-2024 Social Work [facility] Hematology/Oncology Start: 09-17-2024 End: 09-27-2024 Radiation Oncology Note Severo Dent MD Work Phone: Radiation Oncology Comment on above: Simulation Note Treatment Planning Start: 09-17-2024 End: 09-18-2024 ambulatory Severo DENT Facility:[facility] Start: 09-17-2024 End: 09-27-2024 Patient encounter procedure Severo Dent MD Work Phone: Radiation Oncology Comment on above: Malignant neoplasm o f prostate (HCC) (Primary Dx) Start: 09-14-2024 End: 09-14-2024 Telephone encounter Severo Dent MD Work Phone: Radiation Oncology Comment on above: Financial Questions Start: 09-13-2024 End: 09-13-2024 Bamboo flowsheet Kathie Sánchez WIND COMMISSIONING TECHNICIAN Work Phone: [facility] Start: 09-13-2024 End: 09-13-2024 Bamboo flowsheet Kathie Sánchez WIND COMMISSIONING TECHNICIAN Work Phone: [facility] Start: 09-13-2024 End: 09-13-2024 Office outpatient visit 15 minutes Kathie Princess WIND COMMISSIONING TECHNICIAN Work Phone: [facility] Comment on above: DDD (degenerative di sc disease), cervical (Primary Dx); Other thrombophilia (CMS/HCC); Chronic respiratory failure with hypoxia (CMS/HCC); Abdominal aortic aneurysm, without rupture, unspecified (CMS/HCC); Thoracic aortic aneurysm, without rupture, unspecified (CMS/HCC); Atherosclerosis of aorta (CMS/HCC); Other chronic pain Start: 09-13-2024 End: 09-13-2024 ambulatory KATHIE PRINCESS Not Available Start: 09-11-2024 End: 09-11-2024 ambulatory Dayanna Call LPN Radiation Oncology Comment on above: Patient Education Start: 09-11-2024 End: 09-11-2024 Patient encounter procedure Severo Dent MD Work Phone: Radiation Oncology Comment on above: Malignant neoplasm o f prostate (HCC) (Primary Dx) Start: 09-07-2024 End: 09-07-2024 Clinisync Result Encounter Generic External Data Provider [facility] External Department Unsolicited Start: 09-07-2024 End: 09-07-2024 Clinisync Result Encounter Generic External Data Provider [facility] External Department Unsolicited Start: 07-12-2024 End: 07-12-2024 ambulatory Severo DENT Facility:[facility] Start: 07-12-2024 End: 07-12-2024 Patient encounter procedure Severo Dent MD Work Phone: Radiation Oncology Comment on above: Malignant neoplasm o f prostate (HCC) (Primary Dx) Start: 06-21-2024 End: 06-21-2024 ambulatory RUFINA VORA Facility:[facility] Start: 06-21-2024 End: 06-21-2024 Patient encounter [...] Start: 05-21-2024 End: 05-21-2024 ambulatory Rufina VORA Facility:[facility] Start: 05-21-2024 End: 05-21-2024 Patient encounter procedure Rufina VORA [facility] Start: 05-01-2024 End: 05-01-2024 ambulatory Rufina VORA Facility:[facility] Start: 05-01-2024 End: 05-01-2024 Patient encounter procedure Rufina VORA [facility] Start: 02-28-2024 Patient encounter procedure Generic Provider [facility] Start: 02-28-2024 End: 02-28-2024 ambulatory KATHIE SÁNCHEZ Not Available Start: 01-05-2024 Clinisync Result Encounter Generic External Data Provider [facility] External Department Unsolicited Start: 01-05-2024 Clinisync Result Encounter Generic External Data Provider [facility] External Department Unsolicited Start: 01-02-2024 End: 01-02-2024 ambulatory Rufina VORA Facility:[facility] Start: 07-22-2023 ambulatory Rufina VORA Facili ty:[facility] Start: 06-06-2023 End: 06-06-2023 ambulatory Rufina VORA Facility:[facility] Start: 06-06-2023 End: 06-06-2023 Patient encounter procedure Rufina VORA [facility] Start: 05-17-2023 End: 05-17-2023 Patient encounter procedure Rufina VORA [facility] Start: 04-12-2023 End: 04-13-2023 ambulatory ROOF DESIGNER KATHIE SÁNCHEZ Facility:[facility] Start: 04-08-2023 End: 04-09-2023 ambulatory PROMISE SÁNCHEZ Facility:[facility] Start: 02-07-2023 End: 02-07-2023 Patient encounter procedure Rufina VORA [facility] Start: 01-04-2023 End: 01-05-2023 ambulatory PROMISE SÁNCHEZ Facility:[facility] Start: 10-07-2022 End: 10-08-2022 ambulatory ROOF DESIGNER KATHIE SÁNCHEZ Facility:[facility] Start: 08-18-2022 End: 08-19-2022 ambulatory ROBERTO ALVES . Facility:[facility] Start: 08-12-2022 End: 08-12-[address] ELSA RAE . Facility:[facility] Start: 07-20-2022 End: 08-11-2022 Pre-admission assessment Rufina VORA [facility] Start: 05-17-2022 End: 06-16-2022 Pre-admission assessment Rufina VORA [facility] Start: 05-17-2022 End: 05-17-2022 Patient encounter procedure Rufina VORA [facility] Start: 05-03-2022 End: 05-03-2022 ambulatory ROBERTO ALVES . Facility:[facility] Start: 03-24-2021 End: 03-24-2021 Departed Referred Bryan Abdelrahman Work Phone: [facility] [place] Procedures Date Procedure Procedure Detail Performing Clinician Start: 01-02-2025 Oph bmtry prtl coher intrfrmtry io lens pwr erna Valdovinos DO Work Phone: Start: 01-02-2025 End: 01-02-2025 Ophth medical xm&eval compre new pt 1/> vst Age-related nuclear cataract of both eyes Karen Valdovinos DO Work Phone: Comment on above: Age-related nuclear cataract of both eyes (Primary Dx) Start: 12-05-2024 PSA screening [facility] Provi kd Start: 12-05-2024 MHPT PSA, DIAGNOSTIC Ge neric External Data Provider Start: 10-11-2024 [facility] CBC W AUTO DIFF [...] External Data Provider Start: 04-08-2023 PSA screening ROOF DESIGNER KATHIE HUNTERDIAMONDMatias Comment on above: Performed By: #### P [facility] #### [facility] [address] [place] [address] Dr. James Crowley Start: 10-19-2022 Colonoscopy Generic Pr ovider Colonoscopy Rufina VORA Procedure on foot Rufina LEON Repair of hip Rufina VORA Comment on above: Both hips Both hips Transrectal needle biopsy of prostate Rufina VORA Plan of Treatment Date Care Activity Detail Author Start: 10-19-2032 Screening for malign ant neoplasm of colon [facility] Start: 03-11-2031 Urine microalbumin profile DTaP,Tdap,Td Vaccine (2 - Td or Tdap) [facility] Start: 12-05-2029 Prostate specific antigen measurement Prostate Cancer Screening Discussion [facility] Start: 09-07-2029 Prostate specific antigen measurement Prostate Cancer Screening Discussion [facility] Start: 06-12-2025 End: 06-12-2025 ambulatory 06/12/2025 11:00 AM EDT Visit (SP) Office Hematology/Oncology [address] [place] [address] Cat Baker APRN.ROOF DESIGNER [address] [place] [address] survivorship Hematology/Oncology Comment on above: survivorship Start: 06-12-2025 End: 06-12-2025 Patient encounter procedure 06/12/2025 10:30 AM EDT Office Visit Radiation Oncology [address] [place] [address] Severo Dent MD [address] [place] [address] 6 month Follow up Radiation Oncology Comment on above: 6 month Follow up Start: 06-11-2025 End: 09-10-2025 Prostate specific Ag [Mass/volume] in Serum or Plasma PROSTATE-SPECIFIC ANTIGEN DIAGNOSTIC Lab Routine Malignant neoplasm of prostate (HCC) Expected: 06/11/2025 (Approximate), Expires: 09/10/2025 [facility] Work Phone: Comment on above: Expected: 06/11/2025 (Approximate), Expires: 09/10/2025 Start: 02-27-2025 Medicare Annual Well ness (AWV) Medicare Annual Wellness (AWV) [facility] Start: 02-27-2025 Pneumococcal Vaccine : 65+ Years (1 of 2 - PCV) Pneumococcal Vaccine: 65+ Years (1 of 2 - PCV) [facility] Comment on above: Postponed from 07/21 (Patient Refused) Start: 01-08-2025 End: 01-08-2025 Patient encounter procedure 01/08/2025 9:00 AM EST Office Visit [facility] [address] [place] [address] Kathie Sánchez, DONALD [address] [place] [id number] [facility] Start: 01-02-2025 End: 01-02-2025 Patient encounter procedure [facility] Comment on above: Arrived Start: 12-17-2024 End: 12-17-2024 Patient encounter procedure 12/17/2024 9:40 AM EST Office Visit [facility] [address] [place] [address] Kathie Sánchez NP [address] [place] [phone] [facility] Start: 12-12-2024 End: 12-12-2024 Patient encounter procedure 12/12/2024 10:00 AM EST Office Visit Radiation Oncology [address] [place] [address] [place] [address] Severo Dent MD [address] [place] [address] 3-4 week follow up Radiation Oncology Comment on above: 3-4 week follow up Start: 11-30-2024 End: 11-30-2024 Patient encounter procedure Radiation Oncology Comment on above: 3-4 week follow up Start: 11-28-2024 Advance Directive Discussion Advance Directive Discussion [facility] Start: 11-27-2024 End: 02-26-2025 Prostate specific Ag [Mass/volume] in Serum or Plasma PROSTATE-SPECIFIC ANTIGEN DIAGNOSTIC Lab Routine Malignant neoplasm of prostate (HCC) Expected: 11/27/2024, Expires: 02/26/2025 [facility] Work Phone: Comment on above: Expected: 11/27/2024 , Expires: 02/26/2025 Start: 11-23-2024 End: 11-23-2024 Patient encounter procedure 11/23/2024 10:00 AM EST Office Visit [facility] [address] [place] [address] labs [facility] Comment on above: labs Start: 11-02-2024 End: 11-02-2024 Patient encounter procedure 11/02/2024 10:15 AM EST Appointment Radiation Oncology [address] [place] [address] Prostate Radiation Oncology Comment on above: Prostate Start: 11-01-2024 End: 11-01-2024 Patient encounter procedure Radiation Oncology Comment on above: Prostate FINAL OTV Fx Start: 10-31-2024 End: 10-31-2024 Patient encounter procedure 10/31/2024 10:15 AM EST Appointment Radiation Oncology [address] [place] [address] Prostate Radiation Oncology Comment on above: Prostate Start: 10-30-2024 End: 10-30-2024 Patient encounter procedure 10/30/2024 10:15 AM EST Appointment Radiation Oncology [address] [place] [address] Prostate Radiation Oncology Comment on above: Prostate Start: 10-29-2024 End: 10-29-2024 Patient encounter procedure Radiation Oncology Comment on above: Prostate Location: [facility] Start: 10-24-2024 End: 10-24-2024 Patient encounter procedure 10/24/2024 10:15 AM EST Appointment Radiation Oncology [address] [place] [address] Prostate Radiation Oncology Comment on above: Prostate Start: 10-23-2024 End: 10-23-2024 Patient encounter procedure 10/23/2024 10:15 AM EST Appointment Radiation Oncology [address] [place] [address] Prostate Radiation Oncology Comment on above: Prostate Start: 10-22-2024 End: 10-22-2024 Patient encounter procedure Radiation Oncology Comment on above: Prostate Location: [facility] Start: 10-21-2024 End: 10-21-2024 Patient encounter procedure 10/21/2024 10:15 AM EST Appointment Radiation Oncology [address] [place] [address] Prostate Radiation Oncology Comment on above: Prostate Start: 10-19-2024 End: 10-19-2024 Patient encounter procedure 10/19/2024 10:15 AM EST Appointment Radiation Oncology [address] [place] [address] Prostate Radiation Oncology Comment on above: Prostate Start: 10-18-2024 End: 10-18-2024 Patient encounter procedure 10/18/2024 10:15 AM EST Appointment Radiation On[facility] [address] [facility] [address] [place] [address] Prostate Radiation Oncology Comment on above: Prostate Start: 10-17-2024 End: 10-17-2024 Patient encounter procedure 10/17/2024 10:15 AM EST Appointment Radiation Oncology [address] [facility] [place] [address] Prostate Radiation Oncology Comment on above: Prostate [...] Radiation Oncology [address] [place] [address] Prostate Radiation Oncology Comment on above: Prostate Start: 10-11-2024 End: 01-10-2025 CBC W Auto Differential panel - Blood COMPLETE BLOOD COUNT AND DIFFERENTIAL Lab Routine Malignant neoplasm of prostate (HCC) Expected: 10/11/2024, Expires: 01/10/2025 [facility] Work Phone: Comment on above: Expected: 10/11/2024 , Expires: 01/10/2025 Start: 10-11-2024 End: 10-11-2024 Patient encounter procedure 10/11/2024 10:30 AM EST Appointment Radiation Oncology [address] [place] [address] Prostate Radiation Oncology Comment on above: Prostate Start: 10-10-2024 End: 10-10-2024 Patient encounter procedure 10/10/2024 10:30 AM EST Appointment Radiation Oncology [address] [place] [address] Prostate Radiation Oncology Comment on above: Prostate Start: 10-09-2024 End: 10-09-2024 Patient encounter procedure 10/09/2024 10:30 AM EST Appointment Radiation Oncology [address] [place] [address] Prostate Radiation Oncology Comment on above: Prostate Start: 10-08-2024 End: 10-08-2024 Patient encounter procedure Radiation Oncology Comment on above: Prostate Location: [facility] Start: 10-05-2024 End: 10-05-2024 Patient encounter procedure 10/05/2024 10:15 AM EST Appointment Radiation Oncology [address] [place] [address] Prostate Radiation Oncology Comment on above: Prostate Start: 10-04-2024 End: 10-04-2024 Patient encounter procedure 10/04/2024 2:15 PM EST Appointment Radiation Oncology [address] [place] [address] Prostate - appt in [place] before Radiation Oncology Comment on above: Prostate - appt in [place] before Start: 10-04-2024 End: 01-03-2025 CBC W Auto Differential panel - Blood COMPLETE BLOOD COUNT AND DIFFERENTIAL Lab Routine Malignant neoplasm of prostate (HCC) Expected: 10/04/2024, Expires: 01/03/2025 [facility] Work Phone: Comment on above: Expected: 10/04/2024 , Expires: 01/03/2025 Start: 10-04-2024 End: 10-04-2024 Patient encounter procedure 10/04/2024 10:15 AM EST Appointment Radiation Oncology [address] [place] [address] Prostate Radiation Oncology Comment on above: Prostate Start: 10-03-2024 End: 10-03-2024 Patient encounter procedure 10/03/2024 10:15 AM EST Appointment Radiation Oncology [address] [place] [address] Prostate Radiation Oncology Comment on above: Prostate Start: 10-02-2024 End: 10-02-2024 Patient encounter procedure 10/02/2024 10:15 AM EST Appointment Radiation Oncology [address] [place] [address] Prostate Radiation Oncology Comment on above: Prostate Start: 10-01-2024 End: 10-01-2024 Patient encounter procedure Radiation Oncology Comment on above: Prostate Location: [facility] Start: 09-28-2024 End: 09-28-2024 Patient encounter procedure 09/28/2024 2:45 PM EDT Appointment Radiation Oncology [address] [place] [address] Prostate Radiation Oncology Comment on above: Prostate Start: 09-27-2024 End: 09-27-2024 Patient encounter procedure 09/27/2024 2:45 PM EDT Appointment Radiation Oncology [address] [place] [address] Prostate Radiation Oncology Comment on above: Prostate Start: 09-26-2024 End: 09-26-2024 Patient encounter procedure 09/26/2024 11:30 AM EDT Appointment Radiation Oncology [address] [place] [address] Prostate Radiation Oncology Comment on above: Prostate Start: 09-25-2024 End: 09-25-2024 Patient encounter procedure Radiation Oncology Comment on above: [place] PROSTATE Prostate - would lik e 10:10:45 Start: 09-21-2024 End: 12-21-2024 Prostate specific Ag [Mass/volume] in Serum or Plasma PROSTATE-SPECIFIC ANTIGEN DIAGNOSTIC Lab Routine Malignant neoplasm of prostate (HCC) Expected: 09/21/2024, Expires: 12/21/2024 [facility] Work Phone: Comment on above: Expected: 09/21/2024 , Expires: 12/21/2024 Start: 09-18-2024 End: 09-18-2024 Patient encounter procedure 09/18/2024 9:00 AM EDT Office [place] [address] Financial Questions for upcoming treatments Financial Clearance [...] disease), cervical Expected: 09/13/2024 (Approximate), Expires: 09/13/2025 [facility] Work Phone: Comment on above: Expected: 09/13/2024 (Approximate), Expires: 09/13/2025 Start: 09-13-2024 End: 09-13-2024 Patient encounter procedure [facility] Comment on above: Other thrombophilia (CMS/HCC); Chronic respiratory failure with hypoxia (CMS/HCC); Abdominal aortic aneurysm, without rupture, unspecified (CMS/HCC); Thoracic aortic aneurysm, without rupture, unspecified (CMS/HCC); Atherosclerosis of aorta (CMS/HCC) Start: 09-11-2024 End: 09-11-2024 Patient encounter procedure 09/11/2024 1:45 PM EDT Office Visit Radiation Oncology [address] [place] [address] Severo Dent MD [address] [place] [address] [place] [address] 2 month rv Radiation Oncology Comment on above: 2 month rv Start: 07-29-2024 Covid-19 Vaccine ( season) Covid-19 Vaccine () [facility] Start: 07-29-2024 Influenza vaccination Influenza Vacc ine (#1) [facility] Start: 07-12-2024 End: 07-12-2024 Patient encounter procedure 07/12/2024 1:15 PM EDT Office Visit Radiation Oncology [address] [place] [address] Severo Dent MD [address] [place] [address] [place] [address] 3 week rv-Decipher results Radiation Oncology Comment on above: 3 week rv-Decipher r esults Start: 06-01-2024 End: 08-31-2024 Prostate specific Ag [Mass/volume] in Serum or Plasma PROSTATE-SPECIFIC ANTIGEN DIAGNOSTIC Lab Routine Prostate cancer (HCC) Expected: 06/01/2024, Expires: 08/31/2024 [facility] Work Phone: Comment on above: Expected: 06/01/2024 , Expires: 08/31/2024 Start: 11-28-2023 Advance Directive Discussion Advance Directive Discussion [facility] Start: 11-28-2023 Behavioral Health Screening Behavioral Health Screening [facility] Start: 07-29-2023 Covid-19 Vaccine () Covid-19 Vaccine () [facility] Start: 07-29-2023 Influenza vaccination Influenza Vacc ine (#1) [facility] Start: 2023 Pneumococcal Vaccine : 65+ Years (1 - PCV) Pneumococcal Vaccine: 65+ Years (1 - PCV) [facility] Start: 2018 RSV Vaccine (1 - 1-d ose 60+ series) RSV Vaccine (1 - 1-dose 60+ series) [facility] Start: 2013 Prostate specific antigen measurement Prostate Cancer Screening Discussion [facility] Start: 2008 Screening for malign ant neoplasm of lung Lung Cancer Screening [facility] Start: 2003 Diabetes Screening Diabetes Screenin g [facility] Start: 2003 Screening for malign ant neoplasm of colon [facility] Start: 1993 Lipid panel Lipid Screening [facility] Start: 1988 Zoledronic acid therapy Alpha- 1 Antitrypsin Deficiency Screening [facility] Start: 1976 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 Annual PCP Team Chronic Disease Visit [facility] Start: 1976 Anxiety Screening Anxiety Screening [facility] Start: 1976 Depression Screening Depression Scre ening [facility] Start: 1976 Hepatitis C screening Hepatitis C Sc lissett [facility] Start: 1976 HIV screening HIV Screening [facility] Start: 1976 Spirometry Spirometry [facility] Start: 1964 Pneumococcal Vaccine : 65+ (1 of 2 - PCV) Pneumococcal Vaccine: 65+ (1 of 2 - PCV) [facility] Start: 1958 Abdominal aortic aneurysm screening Abdominal Aortic Aneurysm Screening [facility] Start: 1958 Medicare Annual Well ness (AWV) Medicare Annual Wellness (AWV) [facility] Start: 1958 Screening for malign ant neoplasm of colon [facility] BLOOD CULTURE 1 BLOOD CULTURE 1 Lab Routine 01/05/2024 4:58 PM EST [facility] BLOOD CULTURE 2 BLOOD CULTURE 2 Lab Routine 01/05/2024 5:04 PM EST [facility] CT Guidance for radiation treatment of Unspecified body region CT SIM PLANNING RADIATION ONCOLOGY Radiology Routine Malignant neoplasm of prostate (HCC) Ordered: 09/17/2024 [facility] Work Phone: Comment on above: Ordered: 09/17/2024 End: 06-01-2025 Prostate specific Ag [Mass/volume] in Serum or Plasma PROSTATE-SPECIFIC ANTIGEN DIAGNOSTIC Lab Routine Prostate cancer (HCC) Every 6 months for 3 Occurrences starting 06/01/2024 until 06/01/2025 [facility] Comment on above: Every 6 months for 3 Occurrences starting 06/01/2024 until 06/01/2025 Immunizations Immunization Date Immunization Notes Care Provider Fa [facility] 08-17-2024 Pneumococcal Conjuga te PCV 20 Kathie Sánchez NP Work Phone: [facility] 08-17-2024 RSV, recombinant, protein subunit RSVpreF, adjuvant reconstitu, 120mcg/0.5mL, PF (Arexvy) Kathie Sánchez NP Work Phone: [facility] 09-17-2023 zoster vaccine recombinant Rufina VROA [facility] 07-04-2023 zoster vaccine recombinant Rufina VORA [facility] 09-25-2022 SARS-CoV-2 (COVID-19 ) [id number] Rufina VORA [facility] 05-26-2021 SARS-CoV-2 (COVID-19 ) mRNA BNT-162b2 vax Rufina VORA [facility] 05-05-2021 SARS-CoV-2 (COVID-19 ) mRNA BNT-162b2 vax Rufina DIONY [facility] 03-11-2021 tetanus toxoid, redu liyah diphtheria toxoid, and acellular pertussis vaccine, adsorbed Rufina DIONY [facility] Payers Date Payer Category Payer Unknown [facility] ANTH MEDICARE ADVANTAGE HMO [id number] 2023-Present [phone] [address] [place] [phone] O [id number] 2022 Medicare [employer]AGE [employer]AGE [id number] 2022-Present [address] [place] [id number] 2022 Medicare (Managed Care) [facility] [id number] 2020 Medicaid [id number] 1959 Medicaid [id number] 1959 Medicare [id number] 1959 Unknown [id number] 1960 Unknown [id number] [id number]. 593 1960 Unknown [id number] 2.16.840.1.316855.3.579.2. 593 1960 Unknown [id number] 2.16.840.1.642716.3.579.2. 593 1960 Unknown [id number] 2.16.840.1.733255.3.579.2. 593 1960 Unknown [id number] 2.16.840.1.484953.3.579.2. 593 1960 Unknown [id number] 2.16.840.1.664167.3.579.2. 593 1960 Unknown [id number] 2.16.840.1.065736.3.579.2. 593 1960 Unknown [id number] 2.16.840.1.096205.3.579.2. 593 1960 Unknown [id number] 2.16.840.1.569230.3.579.2. 727 1960 Unknown [id number] 2.16.840.1.992754.3.579.2. 727 1960 Unknown [id number] 2.16.840.1.069720.3.579.2. 727 1960 Unknown [id number] 2.16.840.1.373463.3.579.2. 727 1960 Unknown [id number] 2.16.840.1.468361.3.579.2. 727 1960 Unknown [id number] 2.16.840.1.539530.3.579.2. 1259 1960 Unknown [id number] 2.16.840.1.645592.3.579.2. 1259 1960 Unknown [id number] 2.16.840.1.540002.3.579.2. 1259 1960 Unknown [id number] 2.16.840.1.651260.3.579.2. 1259 1960 Unknown [id number] 2.16.840.1.756805.3.579.2. 727 Self-pay Self Pay [id number] Social History Date Type Detail Facility [facility] Start: 1960 Sex Assigned At Male [facility] Start: 05-17-2022 End: 11-13-2023 Tobacco smoking status Ex-smoker (finding) [facility] Start: 11-13-2023 End: 02-28-2024 Sex Assigned At Male [facility] Tobacco smoking status Never [facility] Start: 11-28-1975 End: 11-28-2016 History of tobacco use Current smoker [facility] Start: 11-28-1975 End: 11-28-2016 History of tobacco use Cigarette Smoker [facility] Start: 11-13-2023 End: 02-28-2024 Cigarettes smoked current (pack per day) - Reported 2 [facility] Start: 11-13-2023 End: 01-02-2025 Alcohol intake Ex-drinker (finding) [facility] Start: 1960 Sex Assigned At Not on file [facility] Start: 05-16-2013 [facility] Start: 05-16-2013 End: 09-11-2024 Tobacco use and exposure Smokeless tobacco non-user [facility] Start: 05-16-2013 Alcohol intake Current drinke r of alcohol (finding) [facility] Start: 06-21-2024 Alcohol Comment quit [address] [place] [address] Within the last year , have you been afraid of your partner or ex-partner? No [facility] Do you belong to any clubs or organizations such as bahai groups, unions, fraternal or athletic groups, or [...] Facility 05-21-2024 Functional Status N/A [facility] 06-06-2023 Functional Status N/A [facility] 05-17-2023 Functional Status N/A [facility] 02-07-2023 Functional Status N/A [facility] 08-05-2022 N/A [facility] 06-11-2022 Functional Status N/A [facility] 05-17-2022 Functional Status N/A [facility] Clinical Notes 05-17-2022 to 01-02-2025 Karen Valdovinos, - 01/02/2025 10:45 AM Severo Melo MD - 12/12/2024 10:00 AM Mona Eugene RN - 12/12/2024 9:56 AM Umu Gallaghre LSW - 11/26/2024 1:08 PM ESTPatient Instructions Note Date & Type Note Facility 01-02-2025 History of Present illness Narrative Images from the original note were not included. Subjective Patient ID: Mateo Stearns is a 64 y.o. male. Chief Complaint Cataract HPI Cataract In both eyes. Associated symptoms include blurred vision, glare and haloes. Severity is moderate. Onset was gradual. Frequency is constant. Context: distance vision, mid-range vision and near vision. Since onset it is gradually worsening. Treatments tried include eye drops and glasses. Response to treatment was no improvement. Comments Pt presents for cataract evaluation referred by Dr. Pendleton. Pt uses glasses fulltime they are OTC readers +1.50. States he has dry eyes both eyes (OU) is using restasis BID both eyes (OU). Pt states he wants to know if there are any procedures for dry eye help. Does states he has never tried warm compresses. Pt states he does not see well in the daylight. Pt was having radiation treatments for his prostate ( had 28 treatments) denies any use of flomax. No Flomax No latex allergies No pacemakers or Defib Last edited by Karen Valdovinos DO on 01/02/2025 11:29 AM. Current Outpatient Medications (Ophthalmic Agents) Medication Sig Dispense Refill Uojkjhzlbzg-Gadkfdwf-Gcsrrigqc 1-0.5-0.075 % solution Administer 1 drop into affected eye(s) in the morning and 1 drop at noon and 1 drop in the evening and 1 drop before bedtime. 10 mL 1 Restasis 0.05 % ophthalmic emulsion Administer 1 drop into both eyes every 12 (twelve) hours No current facility-administered medications for this visit. (Ophthalmic Agents) Current Outpatient Medications (Other) Medication Sig Dispense Refill albuterol (2.5 MG/3ML) 0.083% nebulizer solution INHALE 1 VIAL VIA NEBULIZER EVERY 6 HOURS NEEDED FOR SHORTNESS OF BREATH OR WHEEZING albuterol HFA 90 mcg/act inhaler Inhale 2 puffs every 4 (four) hours if needed for wheezing aspirin ([facility] Aspirin Low Dose) 81 MG EC tablet Take 1 tablet (81 mg) by mouth Daily 90 tablet 3 benzonatate (Tessalon) 200 MG capsule Take 200 mg by mouth 3 (three) times a day as needed for cough Do not crush or chew. budesonide-formoterol (Symbicort) 160-4.5 MCG/ACT inhaler Inhale 2 puffs in the morning and 2 puffs before bedtime. Rinse mouth with water after use to reduce aftertaste and incidence of candidiasis. Do not swallow.. Comirnaty 30 MCG/0.3ML suspension prefilled syringe dilTIAZem XR (Dilacor XR) 180 MG 24 hr capsule Take 1 capsule (180 mg) by mouth Daily 90 capsule 1 guaiFENesin (Mucinex) 600 MG 12 hr tablet Take 1,200 mg by mouth in the morning and 1,200 mg before bedtime. Do not crush, chew, or split.. HYDROcodone-acetaminophen ([place]) 5-325 MG tablet pantoprazole (ProtoNix) 40 MG EC tablet Take 1 tablet (40 mg) by mouth in the morning. Take before meals. 90 tablet 1 Roflumilast (Daliresp) 500 MCG tablet Take 500 mcg by mouth 1 (one) time each day sodium chloride 0.9 % nebulizer solution Take 3 mL by nebulization if needed for wheezing tiotropium (Spiriva Respimat) 2.5 MCG/ACT inhaler Inhale 2 puffs in the morning. tiZANidine (Zanaflex) 4 MG tablet Take 1 tablet (4 mg) by mouth as needed at bedtime for muscle spasms May take 1/2-1 pill at bedtime 90 tablet 0 No current facility-administered medications for this visit. (Other) Past Medical History: Diagnosis Date Alcoholism ([facility]) Atrial fibrillation ([facility]) Azygos lobe Carpal tunnel syndrome, bilateral Centrilobular emphysema ([facility]) Chronic GERD 12/06/2023 Chronic hypoxemic respiratory failure ([facility]) Chronic lumbar radiculopathy Collapse of left lung 2014 (L) LUNG COLLAPSE / CHEST TUBE COPD (chronic obstructive pulmonary disease) ([facility]/HCC) 2016 COPD / IMFLAMMATION OF LUNG DENIES BLOODBORNE DISEASES Elevated PSA Gout, arthritis History of pneumothorax History of tobacco abuse Hyperlipidemia ([facility]) Lobular atelectasis Neuropathy Prostate cancer ([facility]) Right lower lobe lung mass Scrotal mass Tubular adenoma polyp of rectum Tubularvillas poylps. No Known Allergies Review of Systems Constitutional: Negative. HENT: Negative. Eyes: Negative. Respiratory: Negative. Cardiovascular: Negative. Gastrointestinal: Negative. Genitourinary: Negative. Musculoskeletal: Negative. Skin: Negative. Neurological: Negative. Psychiatric/Behavioral: Negative. Hematological: Negative. Endocrine: Negative. Allergic/Immunologic: Negative. Objective Base Eye Exam Visual Acuity (Snellen - Linear) Right Left Dist sc 20/60 -1 20/50 Dist cc 20/60 -2 20/50 Correction: Glasses Tonometry (Applanation, 11:31 AM) Right Left Pressure 16 17 Pupils Pupils Right PERRL Left PERRL Visual Pandey Left Right Full Full Extraocular Movement Right Left Full, Ortho Full, Ortho Neuro/Psych Oriented x3: Yes Dilation Both eyes: 1.0% Mydriacyl @ 11:08 AM Additional Tests Keratometry K1 Newbury K2 Newbury Right 42.25 2 43.50 92 Left 42.00 152 42.50 62 Glare Testing High Right 20/200 Left 20/200 Slit Lamp and Fundus Exam External Exam Right Left External Rosacea Rosacea Slit Lamp Exam Right Left Lids/Lashes Blepharitis, Ptosis Blepharitis, Ptosis Conjunctiva/Sclera White and quiet White and quiet Cornea Decreased tear film Decreased tear film Anterior Chamber Deep and quiet Deep and quiet Iris Round and reactive Round and reactive Lens 2-3+ Nuclear sclerosis, Vacuoles, 3+ Posterior subcapsular cataract 2-3+ Nuclear sclerosis, Vacuoles, 2+ Posterior subcapsular cataract Anterior Vitreous Normal Normal Fundus Exam Right Left Disc Hazy view Hazy view Macula Normal Normal Vessels Normal Normal Periphery Normal Normal Refraction Wearing Rx Add Right +1.50 Left +1.50 Type: OTC Manifest Refraction Sphere Cylinder Newbury Right Left +3.50 -2.00 094 Final Rx Sphere Dist VA Right +2.00 20/50 Left +2.00 20/50 Expiration Date: 01/02/2026 Assessment/Plan Age-related nuclear cataract of both eyes - Visually Significant Cataract, OU: I discussed the risks, benefits, alternatives, and expectations of cataract surgery. A complete ophthalmic exam was performed and it was determined that the cataracts were a primary source of vision decline, affecting activities of daily living, necessitating removal. Limited vision post-surgery may occur with pre-existing conditions affecting other areas of the eye or the brain was explained and the patient displayed an understanding. The overall objective is to improve ADLs, not eliminate glasses or restore vision to 20/20. Tests were reviewed - the different lens options were explained including the [id number] fees for any upgrades. Intraocular lens (IOL) selection may be altered either prior to or during the procedure based on the doctor's discretion including reverting to a traditional intraocular lens (IOL). They understood that there will exist the potential of glasses prescription need post surgery for near, distance or possibly both. The patient stated a full understanding and a desire to proceed with the procedure. The patient received cataract measurements and had any additional questions answered. - A complete exam was performed including a physical exam: General: AAOx3 and NAD, Lungs: Clear, Heart: RRR, Abdomen: S/NT/ND, Extremities: no pitting edema. - Coordination of care will be shared with Dr. Pendleton. Cataract Surgery for OD will take place - 02/04 and OS - 02/25. documented in this encounter [facility] 12-12-2024 History of Present illness Narrative Radiation Oncology - Follow Up Note PATIENT NAME: Mateo Stearns PATIENT DIAGNOSIS: Prostate adenocarcinoma, initial PSA 4.46, biopsy Brenden score 3 + 3 = 6 (grade group 1), clinical stage T1c, N0, M0, stage I [cT1a-c/T2a, N0, M0, PSA <10, GG 1] (AJCC 8th ed.), s/p TRUS Random biopsy. RADIATION SUMMARY: DATES OF TREATMENT: 09/25/24 - 11/02/24 AREA TREATED: PROSTATEPELVIS DELIVERED DOSE: Area: PROSTATEPELVIS 7,000 cGy in 28 fractions, 2 ARCS, VMAT, 10MV WITH DAILY CBCT TOTAL: 7,000 cGy in 28 fractions ELAPSED TIME: 38 days. INTERVAL HISTORY: The patient presents for routine follow-up after completion of radiation October. He did have recent bronchitis and is recovering however. Bladder and bowel function good. No dysuria or hematuria. PSA HISTORY: PSA. (no units) Date Value 12/05/2024 4.2 09/07/2024 7.20 ALLERGIES No Known Allergies tiZANidine (ZANAFLEX) 4 mg tablet Take 4 mg by mouth. predniSONE (DELTASONE) 10 mg tablet Refills(s) 0 [...] Take 2 pills daily x [address] (PROTONIX) 40 mg tablet Take 40 mg by mouth. REVIEW OF SYSTEMS: D/N = 4-04/28 Hematuria: none Dysuria: none Incontinence: none Urgency: none Medications to aid urination: no Bowel movement frequency: 1/day Bowel movement quality: normal Blood per rectum: none AUA: 2 PHYSICAL EXAM: BP 131/88 Pulse 81 Temp 37.1 C (98.7 F) Resp 18 Wt 65.7 kg (144 lb 13.5 oz) SpO2 90% BMI 22.69 kg/m KPS: 100 General Appearance: Alert and oriented. No acute distress. ASSESSMENT/PLAN: Prostate adenocarcinoma, initial PSA 4.46, biopsy Brenden score 3 + 3 = 6 (grade group 1), clinical stage T1c, N0, M0, stage I [cT1a-c/T2a, N0, M0, PSA <10, GG 1] (AJCC 8th ed.), s/p TRUS Random biopsy. Overall doing fairly well. Good initial PSA response. No significant postradiation related issues. Recommend continued follow-up including PSA in 6 months. Signed by: Severo Dent MD cc: Kathie Sánchez, ROOF DESIGNER ([facility]) [address] [place] [address] No referring provider defined for this encounter. AUA 2 Mona Melvin, CARIDAD documented in this encounter [facility] 11-26-2024 Note HNO ID: [id number] Author: UMU NICOLAS LSW Service: ? Author Type: Tram Operator Type: Progress Notes Filed: 11/26/2024 13:09 Note Text: SOCIAL WORK FOLLOW UP NOTE: [facility] Date of service:11/26/24 TOPICS ADDRESSED: community resources PLAN: Continue follow up as needed Assigned SW listed in Care Team tab: Yes SW completed and faxed October 2024 mileage reimbursement log to [facility]. SUSANNA Sotomayor [facility] 11-26-2024 History of Present illness Narrative SOCIAL WORK FOLLOW UP NOTE: [facility] Date of service:11/26/24 TOPICS ADDRESSED: community resources PLAN: Continue follow up as needed Assigned SW listed in Care Team tab: Yes SW completed and faxed October 2024 mileage reimbursement log to [facility]. SUSANNA Sotomayor documented in this encounter [facility] 11-02-2024 Note HNO ID: [id number] Author: Severo DENT MD Service: ? Author [...] well. Follow-up as scheduled. Severo Dent MD [facility] 11-02-2024 History of Present illness Narrative [...] Severo Dent MD documented in this encounter [facility] 11-02-2024 History of Present illness Narrative [facility] Radiation Oncology Department RADIATION ONCOLOGY - [...] Staff Physician Gopal Dent M.D. / NRS 42:37 PM Electronically Signed cc: Kathie Sánchez, PROMISE Vora documented in this encounter [facility] 11-02-2024 Note HNO ID: [id number] Author: Severo DENT MD Service: ? Author Type: Physician Type: Progress Notes Filed: 11/08/2024 14:37 Note Text: [facility] Radiation Oncology Department RADIATION ONCOLOGY - COMPLETION NOTE PATIENT: MATEO STEARNS: 1960 DATES OF TREATMENT: 09/25/24 - 11/02/24 DIAGNOSIS: Prostate adenocarcinoma, initial PSA 4.46, biopsy Hewitt score 3 + 3 = 6 (grade [...] Electronically Signed cc: Kathie Sánchez, PROMISE Vora [facility] 10-29-2024 Note HNO ID: [id number] Author: Severo DENT MD Service: ? Author Type: Physician Type: Progress Notes Filed: 10/29/2024 10:54 Note Text: Radiation Oncology - On Treatment Review (OTR) Note PATIENT NAME: Mateo Stearns PATIENT DIAGNOSIS: Prostate adenocarcinoma, initial PSA 4.46, biopsy Hewitt score 3 + 3 = 6 (grade [...] week. Follow-up care discussed. Severo Dent MD [facility] 10-29-2024 History of Present illness Narrative Radiation Oncology - On Treatment Review (OTR) Note PATIENT NAME: Mateo Stearns PATIENT DIAGNOSIS: Prostate adenocarcinoma, initial PSA 4.46, biopsy Hewitt score 3 + 3 = 6 (grade [...] Severo Dent MD documented in this encounter [facility] 10-26-2024 Note HNO ID: [id number] Author: UMU NICOLAS LSW Service: ? Author Type: Tram Operator Type: Progress Notes Filed: 10/26/2024 10:44 Note Text: SOCIAL WORK FOLLOW UP NOTE: [facility] Date of service:10/26/24 TOPICS ADDRESSED: community resources PLAN: Continue follow up as needed Assigned SW listed in Care Team tab: Yes SW completed and faxed September 2024 mileage reimbursement log to [facility] SUSANNA Sotomayor [facility] 10-26-2024 History of Present illness Narrative SOCIAL WORK FOLLOW UP NOTE: [facility] Date of service:10/26/24 TOPICS ADDRESSED: community resources PLAN: Continue follow up as needed Assigned SW listed in Care Team tab: Yes SW completed and faxed September 2024 mileage reimbursement log to [facility] UmuSUSANNA Grande documented in this encounter [facility] 10-22-2024 Note HNO ID: [id number] Author: Severo DENT MD Service: ? Author [...] Continue radiation as outlined. Severo Dent MD [facility] 10-22-2024 History of Present illness Narrative Radiation Oncology - On Treatment Review (OTR) Note PATIENT NAME: Mateo Stearns PATIENT DIAGNOSIS: Prostate adenocarcinoma, initial PSA 4.46, biopsy Hewitt score 3 + 3 = 6 (grade [...] Severo Dent MD documented in this encounter [facility] 10-16-2024 History of Present illness Narrative [...] HISTORY Past Medical History: Diagnosis Date Alcoholism ([facility]) Atrial fibrillation ([facility]) Azygos lobe Carpal tunnel syndrome, bilateral Centrilobular emphysema ([facility]/H[facility]) Chronic GERD 12/06/2023 Chronic hypoxemic respiratory failure ([facility]/HCC) Chronic lumbar radiculopathy Collapse of left lung 2014 (L) LUNG COLLAPSE / CHEST TUBE COPD (chronic obstructive pulmonary disease) ([facility]) 2016 COPD / IMFLAMMATION OF LUNG DENIES [...] and his symtpoms documented in this encounter [facility] 10-16-2024 Instructions Kathie Sánchez NP - 10/16/2024 11:00 AM EST Will give you some hand outs on stretching exercises Follow up in November 2024 for recheck documented in this encounter [facility] 10-15-2024 Note HNO ID: [id number] Author: Severo DENT MD Service: ? Author Type: Physician Type: Progress Notes Filed: 10/15/2024 15:22 Note Text: Radiation Oncology - On Treatment Review (OTR) Note PATIENT NAME: Mateo Stearns PATIENT DIAGNOSIS: Prostate adenocarcinoma, initial PSA 4.46, biopsy Hewitt score 3 + 3 = 6 (grade [...] recheck in 2 weeks. Severo Dent MD [facility] 10-15-2024 History of Present illness Narrative Radiation Oncology - On Treatment Review (OTR) Note PATIENT NAME: Mateo Stearns PATIENT DIAGNOSIS: Prostate adenocarcinoma, initial PSA 4.46, biopsy Hewitt score 3 + 3 = 6 (grade [...] Severo Dent MD documented in this encounter [facility] 10-11-2024 Nurse Note Aliadelma Schuyler Stearns presents in office today for: Lab Draw only . Ordering Provider: Gopal Dent M.D. Test (s) ordered: CBC Method for obtaining blood: Phlebotomy was performed, accessing left antecubital vein. Needle removed intact. Dressing secured. Patient denies discomfort, dizziness, light-headedness or weakness and left the department without assist. Dayanna Call LPN [facility] 10-11-2024 Nurse Note Mateo Stearns presents in office today for: Lab Draw only . Ordering Provider: Gopal Dent M.D. Test (s) ordered: CBC Method for obtaining blood: Phlebotomy was performed, accessing left antecubital vein. Needle removed intact. Dressing secured. Patient denies discomfort, dizziness, light-headedness or weakness and left the department without assist. Dayanna Call LPN documented in this encounter [facility] 10-08-2024 Note HNO ID: [id number] Author: Severo DENT MD Service: ? Author [...] WBC recheck this week. Severo Dent MD [facility] 10-08-2024 History of Present illness Narrative Radiation Oncology - On Treatment Review (OTR) Note PATIENT NAME: Mateo Stearns PATIENT DIAGNOSIS: Prostate adenocarcinoma, initial PSA 4.46, biopsy Hewitt score 3 + 3 = 6 (grade [...] Severo Dent MD documented in this encounter [facility] 10-04-2024 Nurse Note Mateo Stearns presents in office today for: Lab Draw only . Ordering Provider: Gopal Dent M.D. Test (s) ordered: CBC Method for obtaining blood: Phlebotomy was performed, accessing left antecubital vein. Needle removed intact. Dressing secured. Patient denies discomfort, dizziness, light-headedness or weakness and left the department without assist. Dayanna Call LPN [facility] 10-04-2024 Nurse Note Mateo Stearns presents in office today for: Lab Draw only . Ordering Provider: Gopal Dent M.D. Test (s) ordered: CBC Method for obtaining blood: Phlebotomy was performed, accessing left antecubital vein. Needle removed intact. Dressing secured. Patient denies discomfort, dizziness, light-headedness or weakness and left the department without assist. Dayanna Call LPN documented in this encounter [facility] 10-01-2024 Note HNO ID: [id number] Author: Severo DENT MD Service: ? Author [...] Continue radiation as outlined. Severo Dent MD [facility] 10-01-2024 History of Present illness Narrative [...] Severo Dent MD documented in this encounter [facility] 09-25-2024 Note HNO ID: [id number] Author: UMU NICOLAS LSW Service: ? Author Type: Tram Operator Type: Progress Notes Filed: 09/25/2024 14:02 Note Text: SOCIAL WORK FOLLOW UP NOTE: [facility] Date of service:09/25/24 TOPICS ADDRESSED: community resources PLAN: Continue follow up as needed Assigned SW listed in Care Team tab: Yes SW completed and faxed a mileage reimbursement form on the Patient's behalf to [facility] for the month of August 2024. SUSANNA Sotomayor [facility] 09-25-2024 History of Present illness Narrative SOCIAL WORK FOLLOW UP NOTE: [facility] Date of service:09/25/24 TOPICS ADDRESSED: community resources PLAN: Continue follow up as needed Assigned SW listed in Care Team tab: Yes SW completed and faxed a mileage reimbursement form on the Patient's behalf to [facility] for the month of August 2024. SUSANNA Sotomayor documented in this encounter [facility] 09-25-2024 History of Present illness Narrative Radiation Oncology - On Treatment Review (OTR) Note PATIENT NAME: Mateo Stearns PATIENT DIAGNOSIS: Prostate adenocarcinoma, initial PSA 4.46, biopsy Hewitt score 3 + 3 = 6 (grade [...] Continue radiation as prescribed. Severo Dent MD documented in this encounter [facility] 09-25-2024 Note HNO ID: [id number] Author: Severo DENT MD Service: ? Author [...] Continue radiation as prescribed. Severo Dent MD [facility] 09-24-2024 Telephone encounter Note CBC order pending your approval. Dayanna Call RN [facility] 09-24-2024 Miscellaneous Notes CBC order pending your approval. Dayanna Call RN documented in this encounter [facility] 09-18-2024 Note HNO ID: [id number] Author: UMU NICOLAS LSW Service: ? Author Type: Tram Operator Type: Progress Notes Filed: 09/18/2024 14:01 Note Text: SOCIAL WORK FOLLOW UP NOTE: [facility] Date of service:09/18/24 Mateo Stearns is [...] will follow up as appropriate. SUSANNA Sotomayor [facility] 09-18-2024 History of Present illness Narrative SOCIAL WORK FOLLOW UP NOTE: [facility] Date of service:09/18/24 Mateo Stearns is [...] appropriate. SUSANNA Sotomayor documented in this encounter [facility] 09-17-2024 History of Present illness Narrative JINNY, JOSE ANGELHEMA Schuyler [id number] 09/17/2024 [facility] Radiation Oncology Department SIMULATION NOTE DATE OF SIMULATION: 09/17/2024 THERAPIST: Sabina Rico MACHINE: Dyyno DIAGNOSIS: Malignant neoplasm of [id number] AREA: PELVIS CONTRAST: None <Select> Consent in [...] the first treatment of primary and boost pandey if applicable. Patient education will be completed per nursing. Electronically Signed Gopal Dent M.D. / KG 44:32 PM documented in this encounter [facility] 09-17-2024 History of Present illness Narrative MATEO STEARNS [id number] 09/17/2024 [facility] Department of Radiation Oncology Treatment Planning Note For reasons stated in the consult note, Mateo Stearns is a candidate for radiation therapy. Based on review and interpretation of the relevant diagnostic studies together with the exam findings, Mateo Stearns was simulated on 09/17/2024 at which time the target volume and/or requisite pandey were delineated, as indicated in the simulation [...] 97% isodose line with 10MV and 2 pandey. Custom MLC asym jaws for IMRT were [...] and DVH. Electronically Signed Gopal Dent M.D. 48:19 AM documented in this encounter [facility] 09-17-2024 Note HNO ID: [id number] Author: Severo DENT MD Service: ? Author Type: Physician Type: Progress Notes Filed: 09/18/2024 16:32 Note Text: MATEO STEARNS [id number] 09/17/2024 [facility] Radiation Oncology Department SIMULATION NOTE DATE OF SIMULATION: 09/17/2024 THERAPIST: Sabina Rico MACHINE: Dyyno DIAGNOSIS: Malignant neoplasm of [id number] AREA: PELVIS CONTRAST: None Consent in Epic: [...] the first treatment of primary and boost pandey if applicable. Patient education will be completed per nursing. Electronically Signed Gopal Dent M.D. / MARIUSZ 44:32 PM [facility] 09-17-2024 Note HNO ID: [id number] Author: Severo DENT MD Service: ? Author Type: Physician Type: Progress Notes Filed: 09/26/2024 08:19 Note Text: MATEO STEARNS [id number] 09/17/2024 [facility] Department of Radiation Oncology Treatment Planning Note For reasons stated in the consult note, Mateo Stearns is a candidate for radiation therapy. Based on review and interpretation of the relevant diagnostic studies together with the exam findings, Mateo Stearns was simulated on 09/17/2024 at which time the target volume and/or requisite pandey were delineated, as indicated in the simulation [...] 97% isodose line with 10MV and 2 pandey. Custom MLC asym jaws for IMRT were [...] and DVH. Electronically Signed Gopal Dent M.D. 48:19 AM [facility] 09-14-2024 Telephone encounter Note I called and spoke with the Patient and I have him scheduled with a PFA appointment (Phone call) to discuss his Financial Questions on 09/18/24 at 9 am. DARRIUS Mckee [facility] 09-14-2024 Miscellaneous Notes I called and [...] Mona Melvin RN documented in this encounter [facility] 09-14-2024 Telephone encounter Note PT called [...] Umu- please contact pt. 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 Was PED reviewed? 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 Was PED reviewed? No Patient has an Onbody or Implanted device: No Signed by: Dayanna Call RN documented in this encounter [facility] 09-11-2024 History of Present illness Narrative [...] ASSESSMENT/PLAN: Prostate adenocarcinoma, initial PSA 4.46, biopsy Hewitt score 3 + 3 = 6 (grade [...] by: Severo Dent MD cc: Kathie Sánchez, ROOF DESIGNER ([facility]) [address] [place] [address] Rufina Vora [facility] [place] [address] documented in this encounter [facility] 09-11-2024 Note HNO ID: [id number] Author: Severo DENT MD Service: ? Author Type: Physician Type: Progress Notes Filed: 09/18/2024 12:03 Note Text: Radiation Oncology - Prostate Cancer Follow-up note PATIENT NAME: Mateo Stearns PATIENT DIAGNOSIS: Prostate adenocarcinoma, initial PSA 4.46, biopsy Hewitt score 3 + 3 = 6 (grade [...] ASSESSMENT/PLAN: Prostate adenocarcinoma, initial PSA 4.46, biopsy Hewitt score 3 + 3 = 6 (grade [...] by: Severo Dent MD cc: Kathie Sánchez, ROOF DESIGNER ([facility]) [address] [place] [address] Rufina Vora [address] [place] [address] [facility] 09-11-2024 Nurse Note AUA= 3 [facility] 09-11-2024 Nurse Note AUA= 3 documented in this encounter [facility] 09-11-2024 Note Education (CARI) JINNYMATEO MARSHALL ([id number]) 1960 M Date Time Provider Department 09/11/24 DAYANNA CALL Reason for Visit: Patient Education [91] Visit Notes: >> Dayanna Call LPN Tue Sep 11, 2024 2:21 PM Status: Signed Radiation Therapy - Patient Education Note PATIENT NAME: Mateo Stearns PATIENT September 11, 2024 [facility]/LOCATION: [facility] READINESS TO LEARN Cognitive Ability: Alert and [...] need for 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 Was PED reviewed? No Patient has an [...] Encounter Status:Closed by DAYANNA CALL on 09/11/24 [facility] 07-12-2024 History of Present illness Narrative [...] ASSESSMENT/PLAN: Prostate adenocarcinoma, initial PSA 4.46, biopsy Hewitt score 3 + 3 = 6 (grade [...] by: Severo Dent MD cc: Kathie Sánchez, ROOF DESIGNER ([facility]) [address] [place] [address] Rufina Vora [address] [place] [address] documented in this encounter [facility] 07-12-2024 Note HNO ID: [id number] Author: Severo DENT MD Service: ? Author Type: Physician Type: Progress Notes Filed: 07/12/2024 13:34 Note Text: Radiation Oncology - Prostate Cancer Follow-up note PATIENT NAME: Mateo Stearns PATIENT DIAGNOSIS: 63 year old male with prostate adenocarcinoma, initial PSA 4.46, biopsy Hewitt score 3 + 3 = 6 (grade [...] No date: COPD (chronic obstructive pulmonary disease) ([facility]) No date: Emphysema of lung ([facility]) No date: GERD (gastroesophageal reflux disease) PAST [...] pack years: 92.50 Types: Cigarettes Quit date: 2017 Years since quittin.6 Smokeless tobacco: Never Vaping [...] by: Severo Dent MD cc: Kathie Sánchez, ROOF DESIGNER ([facility]) [address] [place] [address] Rufina Vora [address] [place] [address] [facility] 06-21-2024 Note HNO ID: [id number] Author: Severo DENT MD Service: ? Author Type: Physician Type: Progress Notes Filed: 06/21/2024 13:50 Note Text: Radiation Oncology - Prostate Cancer New Patient/Consult Note PATIENT NAME: Mateo Stearns PATIENT REQUESTING PROVIDER: Dr. Vora DIAGNOSIS: 63 year old male with prostate adenocarcinoma, initial PSA 4.46, biopsy Hewitt score 3 + 3 = 6 (grade [...] with elevated PSA and prostate biopsy demonstrating Hewitt 6 adenocarcinoma in 2 cores. (Left lateral base and left base) He was placed on active surveillance. PSA 11/30/2023 was 4.22. He underwent repeat prostate biopsy on 05/01/2024 with the finding of adenocarcinoma, Hewitt 6 (3+3) from left lateral base, left base, left, left mid, left apical cores. (16 cores involoved) Staging Studies: None Previous Treatment [...] Chest: No respir (more content not included)... [facility] 06-21-2024 History of Present illness Narrative [...] with elevated PSA and prostate biopsy demonstrating Hewitt 6 adenocarcinoma in 2 cores. (Left lateral base and left base) He was placed on active surveillance. PSA 11/30/2023 was 4.22. He underwent repeat prostate biopsy on 05/01/2024 with the finding of adenocarcinoma, Brenden 6 (3+3) from left lateral base, left base, left, left mid, left apical cores. (/16 cores involoved) Staging Studies: None Previous Treatment [...] pack years: 92.50 Types: Cigarettes Quit date: 2017 Years since quittin.5 Smokeless tobacco: Never Vaping [...] by: Severo Dent MD cc: Kathie Sánchez, ROOF DESIGNER ([facility]) [address] [place] [address] Rufina Latosha Vora [address] [place] [address] documented in this encounter [facility] 06-21-2024 Nurse Note Pacemaker/Defibrillator?N Previous Cancer(s)?N Previous Radiation?N Lupus/Scleroderma?N On body monitoring device?N AUA= 5 [facility] 06-21-2024 Nurse Note Pacemaker/Defibrillator?N Previous Cancer(s)?N Previous Radiation?N Lupus/Scleroderma?N On body monitoring device?N AUA= 5 documented in this encounter [facility] 06-01-2024 Note HNO ID: [id number] Author: AMANDEEP CRISOSTOMO MD Service: ? Author Type: Physician Type: Progress Notes Filed: 06/24/2024 16:18 Note Text: Referring Provider: Chief Complaint: Recently diagnosed CaP HPI: 63 year old male from [place], [place] with a PMHx of COPD (40 pack-year smoker), Afib (on ASA), and GERD diagnosed with CAP in 05/20 which showed 2 cores of Hewitt 6 disease. He has sever COPD with shortness of breath on exertion and O2 saturation in high 80s. He was started on . In , his PSA was 4.22 and his urology decided to repeat a biopsy with 8/18 cores positive for Hewitt 6 disease. Past surgical Hx: total hip [...] review Assessment 63 year old male from [place], [place] with a PMHx of COPD (40 [...] for surgery an (more content not included)... [facility] 06-01-2024 History of Present illness Narrative Referring Provider: Chief Complaint: Recently diagnosed CaP HPI: 63 year old male from [place], [place] with a PMHx of COPD (40 pack-year smoker), Afib (on ASA), and GERD diagnosed with CAP in 05/20 which showed 2 cores of Hewitt 6 disease. He has sever COPD with shortness of breath on exertion and O2 saturation in high 80s. He was started on . In , his PSA was 4.22 and his urology decided to repeat a biopsy with 8/18 cores positive for Hewitt 6 disease. Past surgical Hx: total hip [...] review Assessment 63 year old male from [place], [place] with a PMHx of COPD (40 [...] Amandeep Crisostomo MD documented in this encounter [facility] 06-01-2024 Note Patient Outreach (UR OLMN) MATEO STEARNS ([id number]) 1960 Date Time Provider Department 06/01/24 AMANDEEP CRISOSTOMO During your visit today, we recorded the following information about you: Allergies As of Date: 06/01/2024 (No Known Allergies) Date Reviewed: 06/01/2024 Reviewed by: Garrett Davis MA - Fully Assessed Visit Diagnosis:Screening for genitourinary condition [Z13.89] Order(s):URINALYSIS, REFLEX MICROSCOPIC [[id number]] Order #: [id number]. #:[id number] Prescriptions as of 06/04/2024 - aspirin, enteric [...] Marijuana smoker [F12.90] 05/16/2013 Encounter Status:Closed by BleepBleeps, PRODUSER on 06/04/24 [facility] 05-21-2024 Hospital Discharge instructions Patient Education [...] under a microscope. This is called the Hewitt score and the total score can range from 6 10, indicating how likely it is that the cancer will spread (metastasize) to other parts of the body. The higher the score, the greater the likelihood that the cancer will spread. Hewitt 6 or lower: This indicates that the [...] stress of having cancer. General instructions Take oayk-ygk-sqpyvsf and prescription medicines only as told by your health care provider. If you have to go to the hospital, notify your cancer specialist (oncologist). Keep all follow-up visits. This is important. Where to find more information [place] [employer]: www.cancer.org [place] Society of Clinical Oncology: www.cancer.net National Cancer Shell[place]: www.cancer.gov Contact a health care provider if: [...] provider. Document Revised: 02/10/2022 Document Reviewed: 02/10/2022 [employer] Patient Education 2022 [employer]. Follow Up Care 01/02/2024 13:58:04 With:DIONY CHANDLER, Rufina Reina, URL Address: [facility] [address] [place] [address] [phone] When: Unknown [facility] 05-01-2024 Hospital Discharge instructions Patient Education 05/01/2024 [...] for your post-operative appointment in 1-2 weeks [phone] or [phone] Follow Up Care 03/15/2024 14:41:59 With:Rufina VORA Address: [address] [place], [place] [id number]- Business (1) When: Unknown Comments:Keep scheduled appointment [facility] 05-01-2024 Note [id number]#[id number] [facility] 06-06-2023 Hospital Discharge instructions Patient Education 06/06/2023 [...] similar to normal prostate cells (moderately differentiated). Hewitt 8, 9, or 10: This indicates that [...] stress of having cancer. General instructions Take sxnx-wmm-qlermdk and prescription medicines only as told by your health care provider. If you have to go to the hospital, notify your cancer specialist (oncologist). Keep all follow-up visits. This is important. Where to find more information [place] [employer]: www.cancer.org [place] Society of Clinical Oncology: www.cancer.net National Cancer [place]: www.cancer.gov Contact a health care provider if: [...] provider. Document Revised: 02/10/2022 Document Reviewed: 02/10/2022 [employer] Patient Education 2022 [employer]. Follow Up Care 04/27/2023 15:15:09 With:DIONY CHANDLER, Rufina Reina, URL Address: [facility] [address], [place] [address]- [phone] When:Within 6 Month(s) Comments:PSA and ANNE-MARIE [facility] [place] 05-17-2023 Hospital Discharge instructions Patient Education [...] for your post-operative appointment in 1-2 weeks [phone] or [phone] Follow Up Care 04/27/2023 15:25:07 With:Rufina VORA Address: [facility] [address] [place] [address]- [facility] (1) When: Unknown Comments:Keep scheduled appointment [facility] 02-07-2023 Hospital Discharge instructions Patient Education [...] if anything looks unusual. Men with a unchwr-qqjv-rxispv risk for skin cancer may want to see a catalog specialist (milk receiver) for an annual body check. Where to find more information National Cancer Shellman: https://www.cancer.gov/about-canc er/screening Centers for Disease Control and Prevention: https://www.cdc.gov/cancer/dcpc/p revention/screening.htm [place] [employer]: https://www.cancer.org/latest-new s/8-iqhouk-pmxryoaff-kxgoh-fpp-al n.html Contact a health care provider if: [...] 08/11/2017 Document Revised: 08/03/2019 Document Reviewed: 08/11/2017 [employer] Patient Education 2020 [employer]. Follow Up Care 12/10/2022 10:33:39 With:DIONY CHANDLER, Rufina Reina, URL Address: [facility] [address] [place] [address]- When: Unknown [facility] 05-17-2022 Hospital Discharge instructions Patient Education 05/17/2022 13:40:29 Epidermal Cyst, Aoxv-uz-Rlxb Epidermal Cyst An epidermal cyst is a [...] yourself. Follow these instructions at home: Take efsa-gbw-lxnyfxc and prescription medicines only as told by [...] the cyst, or to remove it. Take eewz-vnt-alksidt and prescription medicines only as told by [...] 12/22/2005 Document Revised: 03/06/2020 Document Reviewed: 08/23/2019 [employer] Patient Education 2020 [employer]. 04/19/2022 08:23:29 Testicular Self-Exam Testicular Self-Exam A [...] 02/20/2002 Document Revised: 03/06/2020 Document Reviewed: 10/10/2017 [employer] Patient Education 2020 [employer]. Follow Up Care 03/17/2022 10:53:14 With:Rufina VORA MD, URL Address: [facility] [address], [place] [address]- When: Unknown [facility] Evaluation + Plan note Future Appointments Appointment Date:06/08/2022 08:45:00 AM Scheduled Provider: Location:[facility] Appointment Type:Urology CALL PAT FT Appointment Date:06/15/2022 09:00:00 AM Scheduled Provider: Location:[facility] Appointment Type:Urology FT [facility] Evaluation + Plan note Future Appointments Appointment Date:08/23/2022 12:30:00 PM Scheduled Provider:[facility]uf[facility] Office Visit [facility] Evaluation + Plan note Future Appointments Appointment Date:06/06/2023 09:45:00 AM Scheduled Provider:Rufina VORA MD Location:[facility] Appointment Type:URO Office Visit Diagnostic Tests PendingProstate Histology ([facility]) 05/17/23 [facility] Evaluation + Plan note Future Appointments Appointment Date:12/09/2023 10:45:00 AM Scheduled Provider:Rufina VORA MD Location:[facility] Appointment Type:URO Office Visit Diagnostic Tests PendingPSA Total 06/06/23 [facility] Evaluation + Plan note Future Appointments Appointment Date:05/21/2024 11:30:00 AM Scheduled Provider:Rufina VORA MD Location:[facility] Appointment Type:URO Office Visit Diagnostic Tests PendingProstate Histology ([facility]) 05/01/24 [facility] Evaluation + Plan note [facility] Evaluation note No Assessments Infor mation Available [facility] Evaluation note Diagnosis Screening for genitourinary condition Screening for other and unspecified genitourinary condition [facility] Malignant neoplasm of prostate (HCC)- Primary Malignant neoplasm of prostate [facility] Diagnosis Prostate cancer (HCC)- Primary Malignant neoplasm of prostate [facility] Diagnosis Malignant neoplasm of prostate (HCC)- Primary Malignant neoplasm of prostate [facility] Diagnosis Encounter for subsequent annual wellness [...] Other chronic pain [facility] Diagnosis Malignant neoplasm of prostate (HCC)- Primary Malignant neoplasm of prostate documented in this encounter [facility] note* Diagnosis Malignant neoplasm of prostate (HCC)- Primary Malignant neoplasm of prostate [facility] Diagnosis Malignant neoplasm of prostate (HCC)- Primary Malignant neoplasm of prostate [facility] Diagnosis Malignant neoplasm of prostate (HCC)- Primary Malignant neoplasm of prostate [facility] Diagnosis Malignant neoplasm of prostate (HCC)- Primary Malignant neoplasm of prostate [facility] Diagnosis Malignant neoplasm of prostate (HCC) Malignant neoplasm of prostate [facility] Diagnosis Malignant neoplasm of prostate (HCC)- Primary Malignant neoplasm of prostate [facility] Diagnosis Malignant neoplasm of prostate (HCC) Malignant neoplasm of prostate [facility] Diagnosis Malignant neoplasm of prostate (HCC)- Primary Malignant neoplasm of prostate [facility] Diagnosis Encounter for subsequent annual wellness [...] neoplasm of prostate [facility] Diagnosis Malignant neoplasm of prostate (HCC)- Primary Malignant neoplasm of prostate [facility] Diagnosis Malignant neoplasm of prostate (HCC)- Primary Malignant neoplasm of prostate [facility] Diagnosis Malignant neoplasm of prostate (HCC)- Primary Malignant neoplasm of prostate [facility] Diagnosis Encounter for subsequent annual wellness [...] Prostate cancer (CMS/HCC) Malignant neoplasm of prostate Age-related nuclear cataract of both eyes- Primary [facility] Narr[facility] No data available for this section [facility] Hospital Discharge instructions No data available for this section [facility] No data available for this section [facility] reason for referral (narrative) Referred by: DIONY CHANDLER, Rufina Reina [facility] Summary Purpose Family History No Family History Records FoundNo Family History Records Found No data available for this section No data available for this section No [...] 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 Severo Dent MD [address] [place] [address] [place] [address] Referral ID Status Reason Start Date Expiration Date Visits Requested Visits Authorized [id number] New Request PCP Requested Referral 4 12/16/2024 1 1 Additional Source Comments (unrecognized sect ion and content) No Status Records FoundNo Status Records FoundNo Status Records FoundNo Status Records FoundNo Status Records FoundNo Status Records Found INFORMATION SOURCE (unrecogn ized section and content) DATE CREATED AUTHOR 04/01/2021 [facility] DATE CREATED AUTHOR AUTHOR'S ORGANIZ ATION 04/13/2023 [facility] [place] [facility] DATE CREATED AUTHOR AUTHOR'S ORGANIZ ATION 05/22/2024 [facility] DATE CREATED AUTHOR AUTHOR'S ORGANIZ ATION 12/15/2024 [facility] DATE CREATED AUTHOR AUTHOR'S ORGANIZ ATION 01/04/2025 [facility] DATE CREATED AUTHOR AUTHOR'S ORGANIZ ATION 01/09/2025 [facility] Care Team (unrecognized sect ion and content) Managing Partner Relationship Specialty Start Date End Date Curt De Dios MD [address] [place] [address] PCP - General Family Medicine 11/11/23 Kathie Sánchez WIND COMMISSIONING TECHNICIAN [address] [place] [address] Nurse Practitioner Family Medicine 10/03/23 Managing Partner Relationship Specialty Start Date End Date Peter Bhat DO PCP - General Family Medicine 05/11/13 Managing Partner Relationship Specialty Start Date End Date Kathie Sánchez ROOF DESIGNER [address], [place] [id number] PCP - General Family Medicine 06/21/24 Managing Partner Relationship Specialty Start Date End Date Peter Bhat DO PCP - General Family Medicine 05/11/13 06/20/24 Managing Partner Relationship Specialty Start Date End Date Kathie Sánchez CNP [address] [place] [address] PCP - General Family Medicine 06/21/24 Managing Partner Relationship Specialty Start Date End Date Kathie Sánchez NP [address] [place] [address] PCP - Crow LAFLEUR 12/29/23 Curt De Dios MD [address] [place] [address] PCP - General Family Medicine 02/28/24 Kathie Sánchez NP [address] [place] [address] Nurse Practitioner Family Medicine 10/03/23 Kathie Sánchez NP [address] [place] [address] Nurse Practitioner Family Medicine 02/28/24 Managing Partner Relationship Specialty Start Date End Date Kathie Sánchez ROOF DESIGNER [address] [place] [address] PCP - General Family Medicine 06/21/24 Managing Partner Relationship Specialty Start Date End Date Kathie Sánchez NP [address] [place] [address] PCP - Crow LAFLEUR 12/29/23 Curt De Dios MD [address] [place] [address] PCP - General Family Medicine 02/28/24 Kathie Sánchez NP [address] [place] [address] Nurse Practitioner Family Medicine 10/03/23 Kathie Sánchez NP [address] [place] [address] Nurse Practitioner Family Medicine 02/28/24 Managing Partner Relationship Specialty Start Date End Date Kathie Sánchez NP [address] [place] [phone] PCP - [place] 12/29/23 Curt De Dios MD [address] [place] [address] PCP - General Family Medicine 02/28/24 Kathie Sánchez NP [address] [place] [address] Nurse Practitioner Family Medicine 10/03/23 Kathie Sánchez NP [address] [place] [address] Nurse Practitioner Family Medicine 02/28/24 Managing Partner Relationship Specialty Start Date End Date Kathie Sánchez CNP [address] [place], [place] [id number] PCP - General Family Medicine 06/21/24 Managing Partner Relationship Specialty Start Date End Date Kathie Sánchez CNP [address] [place] [address] PCP - General Family Medicine 06/21/24 Managing Partner Relationship Specialty Start Date End Date Kathie Sánchez CNP [address] [place] [address] PCP - General Family Medicine 06/21/24 Umu Nicolas, OPERATIONS TEAM LEADER Tram Operator 09/18/24 Managing Partner Relationship Specialty Start Date End Date Kathie Sánchez CNP [address] [place] [address] PCP - General Family Medicine 06/21/24 Umu Nicolas LSW Tram Operator 09/18/24 Managing Partner Relationship Specialty Start Date End Date Kathie Sánchez CNP [address] [place] [address] PCP - General Family Medicine 06/21/24 Umu Nicolas LSW Tram Operator 09/18/24 Managing Partner Relationship Specialty Start Date End Date Kathie Sánchez CNP [address] [place] [address] PCP - General Family Medicine 06/21/24 Umu Nicolas, OPERATIONS TEAM LEADER Tram Operator 09/18/24 Managing Partner Relationship Specialty Start Date End Date Kathie Sánchez CNP [address] [place] [address] PCP - General Family Medicine 06/21/24 Umu Nicolas, OPERATIONS TEAM LEADER Tram Operator 09/18/24 Managing Partner Relationship Specialty Start Date End Date Kathie Sánchez ROOF DESIGNER [address] [place] [address] PCP - General Family Medicine 06/21/24 Umu Nicolas, OPERATIONS TEAM LEADER Tram Operator 09/18/24 Managing Partner Relationship Specialty Start Date End Date Kathie Sánchez ROOF DESIGNER [address] [place] [address] PCP - General Family Medicine 06/21/24 Umu Nicolas, OPERATIONS TEAM LEADER Tram Operator 09/18/24 Managing Partner Relationship Specialty Start Date End Date Kathie Sánchez CNP [address] [place] [address] PCP - General Family Medicine 06/21/24 Umu Nicolas, OPERATIONS TEAM LEADER Tram Operator 09/18/24 Managing Partner Relationship Specialty Start Date End Date Kathie Sánchez NP [address] [place] [address] PCP - [place] LAFLEUR 12/29/23 Curt De Dios MD [address] [place] [address] PCP - General Family Medicine 02/28/24 Kathie Sánchez NP [address] [place] [address] Nurse Practitioner Family Medicine 10/03/23 Kathie Sánchez NP [address] [place] [address] Nurse Practitioner Family Medicine 02/28/24 Managing Partner Relationship Specialty Start Date End Date Kathie Sánchez CNP [address] [place] [address] PCP - General Family Medicine 06/21/24 Umu Nicolas LSW Tram Operator 09/18/24 Managing Partner Relationship Specialty Start Date End Date Kathie Sánchez ROOF DESIGNER [address] [place] [address] PCP - General Family Medicine 06/21/24 Umu Nicolas LSW Tram Operator 09/18/24 Managing Partner Relationship Specialty Start Date End Date Kathie Sánchez ROOF DESIGNER [address] [place] [address] PCP - General Family Medicine 06/21/24 Umu Nicolas LSW Tram Operator 09/18/24 Managing Partner Relationship Specialty Start Date End Date Kathie Sánchez NP [address] [place] [phone] PCP - [place] LAFLEUR 12/29/23 Curt De Dios MD [address] [place] [address] PCP - General Family Medicine 02/28/24 Kathie Sánchez NP [address] [place] [address] Nurse Practitioner Family Medicine 10/03/23 Kathie Sánchez NP [address] [place] [address] Nurse Practitioner Family Medicine 02/28/24 Managing Partner Relationship Specialty Start Date End Date Kathie Sánchez NP [address] [place] [address] PCP - [place] LAFLEUR 12/29/23 Curt De Dios MD [address] [place] [address] PCP - General Family Medicine 02/28/24 Kathie Sánchez NP [address] [place] [address] Nurse Practitioner Family Medicine 10/03/23 Kathie Sánchez NP [address] [place] [address] Nurse Practitioner Family Medicine 02/28/24 Managing Partner Relationship Specialty Start Date End Date Kathie Sánchez NP [address] [place] [phone] PCP - [place] LAFLEUR 12/29/23 Curt De Dios MD [address] [place] [address] PCP - General Family Medicine 02/28/24 Kathie Sánchez NP [address] [place] [address] Nurse Practitioner Family Medicine 10/03/23 Kathie Sánchez NP [address] [place] [address] Nurse Practitioner Family Medicine 02/28/24 Managing Partner Relationship Specialty Start Date End Date Kathie Sánchez CNP [address] [place] [address] PCP - General Family Medicine 06/21/24 Umu Nicolas, OPERATIONS TEAM LEADER Tram Operator 09/18/24 Managing Partner Relationship Specialty Start Date End Date Kathie Sánchez CNP [address] [place] [address] PCP - General Family Medicine 06/21/24 Umu Nicolas LSW Tram Operator 09/18/24 Managing Partner Relationship Specialty Start Date End Date Kathie Sánchez CNP [address] [place] [address] PCP - General Family Medicine 06/21/24 Umu Nicolas LSW Tram Operator 09/18/24 Managing Partner Relationship Specialty Start Date End Date Kathie Sánchez CNP [address] [place] [address] PCP - General Family Medicine 06/21/24 Umu Nicolas LSW Tram Operator 09/18/24 Managing Partner Relationship Specialty Start Date End Date Kathie Sánchez CNP [address] [place] [address] PCP - General Family Medicine 06/21/24 Umu Nicolas LSW Tram Operator 09/18/24 Managing Partner Relationship Specialty Start Date End Date Kathie Sánchez CNP [address] [place] [address] PCP - General Family Medicine 06/21/24 Umu Nicolas LSW Tram Operator 09/18/24 Managing Partner Relationship Specialty Start Date End Date Kathie Sánchez NP [address] [place] [address] PCP - [place] LAFLEUR 12/29/23 Curt De Dios MD [address] [place] [address] PCP - General Family Medicine 02/28/24 Kathie Sánchez NP [address] [place] [address] Nurse Practitioner Family Medicine 10/03/23 Kathie Sánchez NP [address] [place] [address] Nurse Practitioner Family Medicine 02/28/24 Lissa Garza MA Family Medicine 12/05/24 Managing Partner Relationship Specialty Start Date End Date Kathie Sánchez NP [address] [place] [address] PCP - [place] LAFLEUR 12/29/23 Curt De Dios MD [address] [place] [address] PCP - General Family Medicine 02/28/24 Kathie Sánchez NP [address] [place] [address] Nurse Practitioner Family Medicine 10/03/23 Kathie Sánchez NP [address] [place] [address] Nurse Practitioner Family Medicine 02/28/24 Lissa Garza MA Family Medicine 12/05/24 Andrade Pendleton OD [address] [place] [address] Referring Physician Optometry 01/02/25 Source Comments (unrecognize d section and content) In the event this informatio n is protected by the Federal Confidentiality of Alcohol and Drug Abuse Patient Records regulations: The Federal rules restrict any use of the information to criminally investigate or prosecute any alcohol or drug abuse patient.[facility] the event this information is protected by the Federal Confidentiality of Alcohol and Drug Abuse Patient Records regulations: The Federal rules restrict any use of the information to criminally investigate or prosecute any alcohol or drug abuse patient.[facility] the event this information is protected by the Federal Confidentiality of Alcohol and Drug Abuse Patient Records regulations: The Federal rules restrict any use of the information to criminally investigate or prosecute any alcohol or drug abuse patient.[facility] the event this information is protected by the Federal Confidentiality of Alcohol and Drug Abuse Patient Records regulations: The Federal rules restrict any use of the information to criminally investigate or prosecute any alcohol or drug abuse patient.[facility] the event this information is protected by the Federal Confidentiality of Alcohol and Drug Abuse Patient Records regulations: The Federal rules restrict any use of the information to criminally investigate or prosecute any alcohol or drug abuse patient.[facility] the event this information is protected by the Federal Confidentiality of Alcohol and Drug Abuse Patient Records regulations: The Federal rules restrict any use of the information to criminally investigate or prosecute any alcohol or drug abuse patient.[facility] the event this information is protected by the Federal Confidentiality of Alcohol and Drug Abuse Patient Records regulations: The Federal rules restrict any use of the information to criminally investigate or prosecute any alcohol or drug abuse patient.[facility] the event this information is protected by the Federal Confidentiality of Alcohol and Drug Abuse Patient Records regulations: The Federal rules restrict any use of the information to criminally investigate or prosecute any alcohol or drug abuse patient.[facility] the event this information is protected by the Federal Confidentiality of Alcohol and Drug Abuse Patient Records regulations: The Federal rules restrict any use of the information to criminally investigate or prosecute any alcohol or drug abuse patient.[facility] the event this information is protected by the Federal Confidentiality of Alcohol and Drug Abuse Patient Records regulations: The Federal rules restrict any use of the information to criminally investigate or prosecute any alcohol or drug abuse patient.[facility] the event this information is protected by the Federal Confidentiality of Alcohol and Drug Abuse Patient Records regulations: The Federal rules restrict any use of the information to criminally investigate or prosecute any alcohol or drug abuse patient.[facility] the event this information is protected by the Federal Confidentiality of Alcohol and Drug Abuse Patient Records regulations: The Federal rules restrict any use of the information to criminally investigate or prosecute any alcohol or drug abuse patient.[facility] the event this information is protected by the Federal Confidentiality of Alcohol and Drug Abuse Patient Records regulations: The Federal rules restrict any use of the information to criminally investigate or prosecute any alcohol or drug abuse patient.[facility] the event this information is protected by the Federal Confidentiality of Alcohol and Drug Abuse Patient Records regulations: The Federal rules restrict any use of the information to criminally investigate or prosecute any alcohol or drug abuse patient.[facility] the event this information is protected by the Federal Confidentiality of Alcohol and Drug Abuse Patient Records regulations: The Federal rules restrict any use of the information to criminally investigate or prosecute any alcohol or drug abuse patient.[facility] the event this information is protected by the Federal Confidentiality of Alcohol and Drug Abuse Patient Records regulations: The Federal rules restrict any use of the information to criminally investigate or prosecute any alcohol or drug abuse patient.[facility] the event this information is protected by the Federal Confidentiality of Alcohol and Drug Abuse Patient Records regulations: The Federal rules restrict any use of the information to criminally investigate or prosecute any alcohol or drug abuse patient.[facility] the event this information is protected by the Federal Confidentiality of Alcohol and Drug Abuse Patient Records regulations: The Federal rules restrict any use of the information to criminally investigate or prosecute any alcohol or drug abuse patient.[facility] the event this information is protected by the Federal Confidentiality of Alcohol and Drug Abuse Patient Records regulations: The Federal rules restrict any use of the information to criminally investigate or prosecute any alcohol or drug abuse patient.[facility]In the event this information is protected by the Federal Confidentiality of Alcohol and Drug Abuse Patient Records regulations: The Federal rules restrict any use of the information to criminally investigate or prosecute any alcohol or drug abuse patient.[facility] the event this information is protected by the Federal Confidentiality of Alcohol and Drug Abuse Patient Records regulations: The Federal rules restrict any use of the information to criminally investigate or prosecute any alcohol or drug abuse patient.[facility] the event this information is protected by the Federal Confidentiality of Alcohol and Drug Abuse Patient Records regulations: The Federal rules restrict any use of the information to criminally investigate or prosecute any alcohol or drug abuse patient.[facility] the event this information is protected by the Federal Confidentiality of Alcohol and Drug Abuse Patient Records regulations: The Federal rules restrict any use of the information to criminally investigate or prosecute any alcohol or drug abuse patient.[facility] the event this information is protected by the Federal Confidentiality of Alcohol and Drug Abuse Patient Records regulations: The Federal rules restrict any use of the information to criminally investigate or prosecute any alcohol or drug abuse patient.[facility] the event this information is protected by the Federal Confidentiality of Alcohol and Drug Abuse Patient Records regulations: The Federal rules restrict any use of the information to criminally investigate or prosecute any alcohol or drug abuse patient.[facility]In the event this information is protected by the Federal Confidentiality of Alcohol and Drug Abuse Patient Records regulations: The Federal rules restrict any use of the information to criminally investigate or prosecute any alcohol or drug abuse patient.[facility] Reason for Visit (unrecogniz ed section and content) Reason Comments Consult Reason Comments New Patient Elevated PSA Reason Comments Prostate Cancer Reason Comments Patient Education Reason Comments Financial Questions Reason Onset Date Comments Simulation Request Form 09/17/2024 Reason Comments Orders CBC Reason Comments Radiotherapy On-treatment Visit Reason Comments Cataract FOR RECORDS PERTAINING TO PATIENTS WHO ARE [...] BE BASED ON THE PRIMARY CLINICAL RECORDS. [facility]. provides no warranty or guarantee of the accuracy or completeness of information in this document.
--- NOTE | 2025-01-10 11:58 | ED_ITS ---
HPI - Abdominal Pain General Chief Complaint: Abdominal Pain Stated Complaint: ABDOMINAL PAIN Time Seen by Provider: 01/10/25 11:47 Mode of arrival: walk-in History of Present Illness HPI narrative: 64-year-old male presents for abdominal pain. It started yesterday afternoon and it has been there since. It is everywhere on the abdomen. He states he has had diarrhea 7 times in the last 1 had a small amount of blood in it. No vomiting but he states he has been dry heaving. No fever or trauma. Related Data Home Medications ?Medication ?Instructions ?Recorded ?Confirmed albuterol sulfate 90 mcg/actuation 1 inh inhalation Q4H PRN shortness 01/05/24 01/10/25 aerosol inhaler of breath or wheezing aspirin 81 mg tablet,delayed 81 mg PO DAILY 01/05/24 01/10/25 release budesonide-formoterol HFA 160 2 puff inhalation BID 01/05/24 01/10/25 mcg-4.5 mcg/actuation aerosol inhaler diltiazem HCl 180 mg 180 mg PO DAILY 01/05/24 01/10/25 capsule,extended release 24 hr, controlled pantoprazole 40 mg tablet,delayed 40 mg PO DAILY 01/05/24 01/10/25 release roflumilast 500 mcg tablet 500 mcg PO DAILY 01/05/24 01/10/25 tiotropium bromide 2.5 2 inh inhalation DAILY PRN 01/05/24 01/10/25 mcg/actuation mist for inhalation shortness of breath (Spiriva Respimat) Previous Rx's ?Medication ?Instructions ?Recorded albuterol sulfate 2.5 mg/3 mL 2.5 mg (3 mL) inhalation Q6H PRN 11/28/24 (0.083 %) solution for nebulization shortness of breath or wheezing #90 mL Allergies Allergy/AdvReac Type Severity Reaction Status Date / Time No Known Drug Allergies Allergy Verified 12/05/24 10:48 Review of Systems ROS Narrative A ten point review of systems is negative except as noted above. PFSH PFSH Social History Little interest or pleasure in doing things: not at all Feeling down, depressed, or hopeless: not at all Exam Narrative Exam Narrative: Nurses note and vital signs reviewed and patient is not hypoxic. General: The patient appears well and in no apparent distress. Patient is resting comfortably on cart. Skin: Warm, dry, no pallor noted. There is no rash noted. Head: Normocephalic, atraumatic Eye: Normal conjunctiva, no drainage Ears, Nose, Mouth, and Throat: oral mucosa is moist. Nares patent. Cardiovascular: Regular Rate and Rhythm Respiratory: Patient is in no distress, no accessory muscle use, lungs are clear to auscultation, no wheezing, rales or rhonchi Back: non-tender GI: Soft and nondistended. He has mild tenderness without mass Musculoskeletal: The patient has no evidence of calf tenderness, no pitting edema, symmetrical pulses noted bilaterally Neurological: A&O, normal speech Psychiatric: Cooperative Constitutional Vital Signs, click to edit/add: Last Vital Signs Temp 97.8 F 01/10/25 11:47 Pulse 116 H 01/10/25 12:34 Resp 20 01/10/25 12:34 BP 126/74 01/10/25 12:34 Pulse Ox 92 L 01/10/25 12:34 O2 Del Method Room Air 01/10/25 12:34 Course Vital Signs Vital signs: Vital Signs Temperature 97.8 F 01/10/25 11:47 Pulse Rate 119 H 01/10/25 11:47 Respiratory Rate 20 01/10/25 11:47 Blood Pressure 142/84 H 01/10/25 11:47 Pulse Oximetry 96 01/10/25 11:47 Temperature 97.8 F 01/10/25 11:47 Pulse Rate 116 H 01/10/25 12:34 Respiratory Rate 20 01/10/25 12:34 Blood Pressure 126/74 01/10/25 12:34 Pulse Oximetry 92 L 01/10/25 12:34 Oxygen Delivery Method Room Air 01/10/25 12:34 MDM - Abdominal Pain MDM Narrative Medical decision making narrative: The patient is found to have enteritis on his CAT scan. He has minimal tenderness and does not require admission to the hospital at this point. Antibiotic not indicated. Incidental note of aneurysm is found as well and he is referred to Dr. Piper. Treatment diagnosis and follow-up were discussed with the patient. Differential Diagnosis Differential diagnosis: Likely abdominal pain, diverticulitis and gastroenteritis Lab Data Attestation: I reviewed the patient's lab results. Labs: Lab Results 01/10/25 Range/Units 12:03 WBC 20.1 H (4.0-11.0) 10^3/uL RBC 5.80 (4.70-6.10) 10^6/uL Hgb 17.5 (14.0-18.0) g/dL Hct 52.9 (42.0-54.0) % MCV 91.2 (80.0-94.0) fL MCH 30.2 (25.9-34.0) pg MCHC 33.1 (29.9-35.2) g/dL RDW 14.1 (11.0-15.0) % Plt Count 313 (150-450) 10^3/uL MPV 8.8 L (9.5-13.5) fL Neut % (Auto) 85.4 H (43.0-75.0) % Lymph % (Auto) 7.6 L (20.5-60.0) % Williams % (Auto) 5.4 (1.7-12.0) % Eos % (Auto) 0.1 L (0.9-7.0) % Baso % (Auto) 0.3 (0.2-2.0) % Neut # (Auto) 17.1 H (1.4-6.5) 10^3/uL Lymph # (Auto) 1.5 (1.2-3.8) 10^3/uL Williams # (Auto) 1.1 H (0.3-0.8) 10^3/uL Eos # (Auto) 0.0 (0.0-0.7) 10^3/uL Baso # (Auto) 0.1 (0.0-0.1) 10^3/uL Abs Immat Gran (auto) 0.24 H (0.00-0.03) 10^3/uL Imm/Tot Granulo (auto) 1.2 H (0.0-0.5) % Sodium 140 (136-145) mmol/L Potassium 4.3 (3.5-5.1) mmol/L Chloride 103 (98-107) mmol/L Carbon Dioxide 26.0 (21.0-32.0) mmol/L Anion Gap 15.3 BUN 32.0 H (7.0-18.0) mg/dL Creatinine 2.01 H (0.70-1.30) mg/dL Est GFR ( Amer) 41 L (>=60 mL/min/1.73m^2) Est GFR (Non-Af Amer) 33 L (>=60 mL/min/1.73m^2) BUN/Creatinine Ratio 15.9 Glucose 177 H (74-106) mg/dL Lactate 1.9 (0.4-2.0) mmol/L Calcium 9.0 (8.5-10.1) mg/dL Total Bilirubin 1.4 H (0.2-1.0) mg/dL Direct Bilirubin 0.2 (0.0-0.2) mg/dL AST 24 (15-37) U/L ALT 31 (16-63) U/L Alkaline Phosphatase 88 (46-116) U/L Total Protein 6.8 (6.4-8.2) g/dL Albumin 3.3 L (3.4-5.0) g/dL Globulin 3.5 g/dL Albumin/Globulin Ratio 0.9 Amylase 35 (25-115) U/L Lipase 16.0 (16.0-77.0) U/L Imaging Data CT scan - abdomen: Radiologist's impression: ITS Impressions Abdomen/Pelvis CT 01/10/25 11:58 IMPRESSION: 1. Marked enteritis involving a 20 cm long segment of small bowel within the left abdomen. No bowel obstruction. No convincing ischemia. 2. Marked atherosclerotic disease of aorta and major branches. While there is significant atherosclerosis at the origin of the superior mesenteric artery, there is no additional calcifications within the mesenteric arteries extending into the right side of the abdomen towards the area of bowel thickening. 3. 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 Electronically authenticated by: LEONOR MA Date: 01/10/2025 13:53 Discharge Plan Discharge Chief Complaint: Abdominal Pain Clinical Impression: Enteritis Patient Disposition: Home, Self-Care Time of Disposition Decision: 14:01 Condition: Good Mode of Transportation: Private Vehicle Prescriptions / Home Meds: No Action albuterol sulfate 90 mcg/actuation HFA aerosol inhaler 1 inh INHALATION Q4H PRN (Reason: shortness of breath or wheezing) aspirin 81 mg tablet,delayed release (DR/EC) 81 mg PO DAILY budesonide-formoterol 160-4.5 mcg/actuation HFA aerosol inhaler 2 puff INHALATION BID diltiazem HCl 180 mg capsule,ext.rel 24h degradable 180 mg PO DAILY pantoprazole 40 mg tablet,delayed release (DR/EC) 40 mg PO DAILY roflumilast 500 mcg tablet 500 mcg PO DAILY Spiriva Respimat 2.5 mcg/actuation mist 2 inh INHALATION DAILY PRN (Reason: shortness of breath) albuterol sulfate 2.5 mg /3 mL (0.083 %) solution for nebulization 2.5 mg inhalation Q6H PRN (Reason: shortness of breath or wheezing) Qty: 90 0RF Print Language: Romanian Instructions: Enteritis (ED) Additional Instructions: Follow-up with Dr. Piper regarding the aortic aneurysm that was identified today on the CAT scan. Referrals: Kathie Sánchez NP [Primary Care Provider] - 1 week Sadie Piper MD [Physician] - 1 week
--- NOTE | 2025-01-10 11:58 | CT_ITS ---
[address] [address] Patient Name: MATEO STEARNS MRN: [id number] date: 1960 Sex: M Assigned Patient Location: ER Current Patient Location: Accession/Order Number: [id number] Exam Date: 01/10/2025 13:05 Report Date: 01/10/2025 13:53 At the request of: MANDO PATEL Procedure: CT abdomen pelvis wo con EXAMINATION: CT abdomen pelvis wo con HISTORY: Diffuse pain , abdominal pain, diarrhea, dry heaves COMPARISON: No relevant comparison available. TECHNIQUE: Axial, Coronal, and Sagittal images were obtained without and/or with IV contrast as indicated by examination type. Dose reduction techniques were achieved by using automated exposure control and/or adjustment of mA and/or kV according to patient size and/or use of iterative reconstruction technique. FINDINGS: LUNG BASES: No visible pulmonary or pleural disease. LIVER: No enlargement, atrophy, suspicious density, or significant focal lesion. BILIARY: No dilatation or calcification. PANCREAS: No lesion, fluid collection, or abnormal duct dilatation. SPLEEN: No enlargement or focal lesion. ADRENALS: No mass or enlargement. KIDNEYS: No mass, obstruction, or calcification. BOWEL/MESENTERY: Marked circumferential wall thickening of approximately 20 cm of small bowel within the lateral left abdomen with mild inflammatory changes/edema within the adjacent mesentery. No bowel obstruction. Mild diverticulosis of the distal colon without acute inflammatory changes. Normal appendix. AORTA/VASCULAR: Saccular aneurysm projecting leftward from the aorta at the level of the diaphragm kathy; overall 3.3 cm diameter of the aorta and aneurysm. Marked atherosclerotic disease of aorta and branches. RETROPERITONEUM: No mass or adenopathy. LYMPH NODES: No adenopathy. URINARY BLADDER: No visible focal wall thickening, lesion, or calculus. PELVIC ORGANS: No visible mass. Pelvic organs appropriate for patient age. ABDOMINAL WALL: Tiny fat filled umbilical hernia without strangulation. BONES: Marked degenerative disc disease L5-S1. Moderate at L4-5. Bilateral hip replacements. OTHER: Negative. CT/CT abdomen pelvis wo con IMPRESSION: 1. Marked enteritis involving a 20 cm long segment of small bowel within the left abdomen. No bowel obstruction. No convincing ischemia. 2. Marked atherosclerotic disease of aorta and major branches. While there is significant atherosclerosis at the origin of the superior mesenteric artery, there is no additional calcifications within the mesenteric arteries extending into the right side of the abdomen towards the area of bowel thickening. 3. 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 Electronically authenticated by: LEONOR MA Date: 01/10/2025 13:53
[2025-01-10 12:12] LABS: Basophils Absolute Auto 0.1 10^3/uL (0.0-0.1); Basophils Percent Auto 0.3 % (0.2-2.0); Eosinophils Percent Auto 0.1 % (0.9-7.0); Hematocrit 52.9 % (42.0-54.0); Hemoglobin 17.5 g/dL (14.0-18.0); Immature Granulocytes Abs Auto 0.24 10^3/uL (0.00-0.03); Immature Granulocytes Pct Auto 1.2 % (0.0-0.5); Lymphocytes Absolute Auto 1.5 10^3/uL (1.2-3.8); Lymphocytes Percent Auto 7.6 % (20.5-60.0); Mean Corpuscular HGB Conc 33.1 g/dL (29.9-35.2); Mean Corpuscular Hemoglobin 30.2 pg (25.9-34.0); Mean Corpuscular Volume 91.2 fL (80.0-94.0); Mean Platelet Volume 8.8 fL (9.5-13.5); Monocytes Absolute Auto 1.1 10^3/uL (0.3-0.8); Monocytes Percent Auto 5.4 % (1.7-12.0); Neutrophils Absolute Auto 17.1 10^3/uL (1.4-6.5); Neutrophils Percent Auto 85.4 % (43.0-75.0); Platelet Count 313 10^3/uL (150-450); Red Cell Distribution Width 14.1 % (11.0-15.0); White Blood Count 20.1 10^3/uL (4.0-11.0)
[2025-01-10 12:23] LABS: Anion Gap 15.3; BUN Creatinine Ratio 15.9; Chloride 103 mmol/L (98-107); Estimated GFR (African America 41 (>=60 mL/min/1.73m^2); Estimated GFR (Non-African Ame 33 (>=60 mL/min/1.73m^2); Glucose 177 mg/dL (74-106); Potassium 4.3 mmol/L (3.5-5.1); Sodium 140 mmol/L (136-145)
[2025-01-10 12:28] LABS: Alanine Aminotransferase 31 U/L (16-63); Albumin Globulin Ratio 0.9; Albumin Level 3.3 g/dL (3.4-5.0); Alkaline Phosphatase 88 U/L (46-116); Amylase 35 U/L (25-115); Aspartate Amino Transferase 24 U/L (15-37); Bilirubin Direct 0.2 mg/dL (0.0-0.2); Bilirubin Total 1.4 mg/dL (0.2-1.0); Globulin 3.5 g/dL; Total Protein 6.8 g/dL (6.4-8.2)
[2025-01-10 12:34] VITALS: BP 126/74; PULSE 116; O2SAT 92
[2025-01-10] MEDS: 0.9 % SODIUM CHLORIDE 1,000 ML 1000 ML IV (13:11)
[2025-01-10 13:43] LABS: Lactate/Lactic Acid 1.9 mmol/L (0.4-2.0)
== END 2025-01-10 14:40 | disposition home or self-care (01) ==
PROVIDERS: Emergency Provider Emergency Medicine; PCP Nurse Practitioner
DX: K52.9 Noninfective gastroenteritis and colitis, unspecified (principal); I71.9 Aortic aneurysm of unspecified site, without rupture
CPT/HCPCS: 36415; 74176; 80048; 80076; 82150; 83605; 83690; 85025; 96360; 99284

== ENCOUNTER 2025-01-13 17:59 | Inpatient (IN) | payer MEDICARE, MEDICAID, SELFPAY ==
--- OUTSIDE RECORDS SUMMARY | 2025-01-13 18:06 | XMS_ITS | CCD ---
Author Organization [facility] Care Team Providers Care Research And Development Specialist Name Role Phone Bryan Quick Attending Provider AICHKATHIE ST Primary Care Physician AICHHOLZ, STAFF RADIOGRAPHER KATHIE Primary Care Unavailable DR LEONOR MA Consulting Unavailable SAMSA ., ROBERTO Admitting Unavailable SAMSA ., ROBERTO Attending Unavailable SAMSA ., ROBERTO Consulting Unavailable AICHHOLZ, STAFF RADIOGRAPHER AKTHIE Admitting Unavailable AICHHOLZ, STAFF RADIOGRAPHER KATHIE Attending Unavailable AICHHOLZ, STAFF RADIOGRAPHER KATHIE Consulting Unavailable AICHHOLZ, STAFF RADIOGRAPHER KATHIE Primary Care Unavailable AICHHOLZ, STAFF RADIOGRAPHER KATHIE Admitting Unavailable AICHHOLZ, STAFF RADIOGRAPHER KATHIE Primary Care Unavailable AICHHOLZ, STAFF RADIOGRAPHER KATHIE Attending Unavailable AICHHOLZ, STAFF RADIOGRAPHER KATHIE Consulting Unavailable AICHHOLZ, STAFF RADIOGRAPHER KATHIE Primary Care Unavailable DR LEONOR MA Consulting Unavailable SAMSA ., ROBERTO Admitting Unavailable SAMSA ., ROBERTO Attending Unavailable SAMSA ., ROBERTO Consulting Unavailable DR LEONOR MA Consulting Unavailable SAMSA ., ROBERTO Admitting Unavailable SAMSA ., ROBERTO Attending Unavailable SAMSA ., ROBERTO Consulting Unavailable DR ELSA NOBLE Admitting Unavailable DR OK CISNEROS V Consulting Unavailable AICHHOLZ, STAFF RADIOGRAPHER KATHIE Primary Care Unavailable DR ELSA NOBLE Attending Unavailable DR ELSA NOBLE Consulting Unavailable SAMSA ., ROBERTO Admitting Unavailable AICHHOLZ, STAFF RADIOGRAPHER KATHIE Primary Care Unavailable SAMSA ., ROBERTO Attending Unavailable SAMSA ., ROBERTO Consulting Unavailable SAMSA ., ROBERTO Admitting Unavailable AICHHOLZ, STAFF RADIOGRAPHER KATHIE Primary Care Unavailable DR LEONOR MA Consulting Unavailable SAMSA ., ROBERTO Attending Unavailable SAMSA ., ROBERTO Consulting Unavailable Aichholz SUPERVISOR AIRPLANE FLIGHT ATTENDANT, Kathie Unavailable Lanre CHANDLER, Curt Primary Care Provider Rufina VORA Attending Unavailable VORA, Rufina R Attending Unavailable VORA, Rufina R Attending Unavailable VORA, Rufina R Attending Unavailable VORA, Rufina R Admitting Unavailable VORA, Rufina R Referring Unavailable Rufina VORA R Attending Unavailable Bhat DO, Peter Cruz Primary Care Provider Aichholz STAFF RADIOGRAPHER, Kathie Rosen Primary Care Provider Bhat DOPeter Primary Care Provider Aichholz SUPERVISOR AIRPLANE FLIGHT ATTENDANT, Kathie Unavailable Aichholz SUPERVISOR AIRPLANE FLIGHT ATTENDANT, Kathie Unavailable Lanre CHANDLER, Curt Primary Care Provider Aichholz SUPERVISOR AIRPLANE FLIGHT ATTENDANT, Kathie Unavailable Umu Schultz Unavailable Unavailable ENGELER, [...] Care Unavailable ENGELER, G GOPAL Referring Unavailable AICHHOLTANK SalcedoA JAYE Primary Care Unavailable ENGELER, G GOPAL Referring Unavailable AICHHOLMatias, KATHIE ROSEN Primary Care Unavailable ENGELER, G GOPAL Attending Unavailable AICHHOLZ, KATHIE JAYE Primary Care Unavailable ENGELER, G GOPAL Referring Unavailable AICHHOLMatias, KATHIE JAYE Primary Care Unavailable ENGELER, G GOPAL Referring Unavailable AICHHOLZ, KATHIE ROSEN Primary Care Unavailable ENGELER, G GOPAL Referring Unavailable AICHHOLZ, KATHIE JAYE Primary Care Unavailable ENGELER, G GOPAL Referring Unavailable AICHHOLZ, KATHIE JAYE Primary Care Unavailable ENGELER, G GOPAL Referring Unavailable AICKashmirHOLMatias, KATHIE ROSEN Primary Care Unavailable ENGELER, G GOPAL Referring Unavailable AICHHOLMatias, KATHIE ROSEN Primary Care Unavailable Lissa Garza MA Unavailable Unavailable Andrade Pendleton OD Unavailable KAREN VALDOVINOS Attending Unavailable KATHIE SÁNCHEZ Attending Unavailable KATHIE SÁNCHEZ Attending Unavailable KATHIE SÁNCHEZ Attending Unavailable Rufina VORA Attending Unavailable Rufina VORA Attending Unavailable Allergies Allergy Classification Reported Allergen(s) Allergy Type Date of Onset Reaction(s) Facility (2 sources) No Known Medication Allergies; Translations: [No Known Medication Allergies] Propensity to adverse reactions (disorder) [facility] Repository Medications Current Medications Medication Drug Class(es) Dates Sig (Normalized) Sig (Original) acetaminophen 325 mg / HYDROcodone bitartrate 5 mg oral tablet (2 sources) Opioid Agonist Start: 12-05-2024 HYDROcodone-aceta minophen ([place]) 5-325 MG tablet 12/05/2024 Active albuterol 0.83 [...] Status: Ordered take 1 capsule by mo uth three times daily as needed for cough [...] budesonide-formoterol 160 mcg-4.5 mcg/inh Inh Aer w/adapter (9 sources) Start: 05-17-2022 take 2 puff(s) by [...] 05/17/22 Status: Ordered take 1 capsule by [facility] every twenty-four hours in the morning [...] Do not crush, chew, or split.. Active Protonix (20 sources) Proton Pump Inhibitor Start: 2 take 1 dose by mouth once daily Start: 05-30-2019 End: 01-14-2025 take 1 tablet by mouth before mealtime pantoprazole (ProtoNix) 40 MG EC tablet Indications: Gastro-esophageal reflux disease without esophagitis Take 1 tablet (40 mg) by mouth in the morning. Take before meals. 90 tablet 1 10/16/2024 01/14/2025 Active Hvfivulrlje-Hgvjiqpk-Plxxywq ac 1-0.5-0.075 % solution (1 source) Start: 01-02-2025 Lxsqgxusfun-Cmndzzbb-Qlauqrq ac 1-0.5-0.075 % solution Indications: Age-related nuclear [...] mL, Rectal, Once, 133 mL, Refill(s) 0, [facility]/pharmacy #[id number], 175, cm, 01/02/24 [...] 01/14/2025 Active Ventolin HFA 90 mcg/inh Aerosol-Adpt (9 sources) Start: 05-17-2022 take 1 puff(s) by [...] Classification Problem Date Documented Da te Episodic/Chronic Anxiety disorders (12 sources) Anxiety disorder; Translations: [Anxiety disorder, unspecified] Onset: 7 02-28-2024 Chronic Aortic; peripheral; and visceral artery aneurysms (20 sources) Abdominal aortic aneurysm without rupture; Translations: [Abdominal aortic aneurysm (AAA) without rupture] Onset: 4 04-10-2024 Chronic Cancer of prostate (20 sources) Malignant neoplasm of prostate; Translations: [Malignant tumor of prostate] Onset: 3 Chronic Cardiac dysrhythmias (15 sources) Atrial fibrillation; Translations: [Unspecified atrial fibrillation] Onset: 3 11-12-2023 Chronic Cataract (2 sources) Bilateral age-related nuclear cataracts; Translations: [Age-related nuclear cataract, bilateral] Onset: 5 01-02-2025 Chronic Chronic obstructive pulmonary disease and bronchiectasis (20 sources) Emphysema, unspecified; Translations: [Chronic obstructive lung disease] Onset: 3 05-16-2013 Chronic Coagulation and hemorrhagic disorders (13 sources) Thrombophilia; Translations: [Other thrombophilia] Onset: 4 09-13-2024 Chronic Disorders of lipid metabolism (12 sources) Mixed hyperlipidemia; Translations: [Mixed hyperlipidemia] Onset: 4 02-28-2024 Chronic Esophageal disorders (20 sources) Gastroesophageal reflux disease; Translations: [Gastro-esophageal reflux disease without esophagitis] Onset: 4 04-19-2022 Chronic Gout and other crystal arthropathies (20 sources) Gout; Translations: [Gout, unspecified] Onset: 4 04-19-2022 Chronic Osteoarthritis (20 sources) Arthritis; Translations: [Osteoarthritis of left hip joint] Onset: 7 04-19-2022 Chronic Other gastrointestinal disorders (20 sources) Scrotal mass; Translations: [Follicular cyst of the skin and subcutaneous tissue, unspecified] Onset: 4 04-19-2022 Episodic Other nervous system disorders (20 sources) Neuropathy; Translations: [Polyneuropathy, unspecified] Onset: 4 04-19-2022 Chronic Other nervous system disorders (13 sources) Carpal tunnel syndrome of right wrist; Translations: [Carpal tunnel syndrome, right upper limb] Onset: 3 10-27-2023 Chronic Other nervous system disorders (12 [...] Onset: 2 Episodic Peripheral and visceral atherosclerosis (13 sources) Atherosclerosis of aorta; Translations: [Atherosclerosis of aorta] Onset: 4 09-13-2024 Chronic Pleurisy; pneumothorax; pulmonary collapse (9 sources) Focal atelectasis 04-19-2022 Episodic Respiratory failure; insufficiency; arrest (adult) (20 sources) Chronic hypoxemic respiratory failure; Translations: [Chronic respiratory failure with hypoxia] Onset: 4 04-19-2022 Chronic Spondylosis; intervertebral disc disorders; other back problems (14 sources) Degeneration of cervical intervertebral disc; Translations: [Other cervical disc degeneration, unspecified cervical region] Onset: 4 09-13-2024 Chronic Unclassified (9 sources) Patient encounter status 05-17-2022 Unclassified (9 sources) Sebaceous cyst of skin 05-17-2022 Unclassified (1 source) COUGH, UNSPECIFIED; Translations: [COUGH, UNSPECIFIED] Onset: 2 Unclassified (1 source) CONTACT W/AND (SUSP) EXPOS COVID-19; Translations: [CONTACT W/AND (SUSP) EXPOS COVID-19] Onset: 2 Past or Other Problems Problem Classification Problem Date Documented Date Episodic/Chronic Alcohol-related disorders (20 sources) Alcohol dependence, uncomplicated; Translations: [Alcoholism] Onset: 05-16-2013 Resolved: 12-17-2024 05-16-2013 Chronic Mood disorders (12 sources) Mood disorders Onset: 02-28-2024 02-28-2024 Other aftercare (1 source) Other fdc (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 therapy; Translations: [OTH DESIGN ENGINEERING TECHNICIAN CURRENT DRUG THERAPY] Onset: 08-13-2022 Episodic [...] purposes. Calculation made for both eyes (OU). [facility] Study observation (narrative) [facility] MHPT PSA, DIAGNOSTICon 12-05 Interpretation and review of laboratory results Abnormal [facility] PROSTATE SPECIFIC ANTIGEN DX 4.2 ng/mL High NINF - 4.00 ng/mL [facility] No Panel Informationon 12-05 [facility] CNOVon 11-02-2024 CNOV Office Visit (RADTSA ) JINNYMATEO MARSHALL ([id number]) 1960 M Date Time Provider Department 11/02/24 10:30 AM Severo DENT During your visit today, we recorded the following information about you: Temperature Pulse Respiration Blood pressure 98.4 degrees 100/minute 18/minute 118/82 Severo Dent MD 11/09/2024 11:44 AM Signed Radiation Oncology - On Treatment Review (OTR) Note PATIENT NAME: Mateo Stearns PATIENT DIAGNOSIS: Prostate adenocarcinoma, initial PSA 4.46, biopsy Marne score 3 + 3 = 6 (grade [...] Order(s):PROSTATE-SPE CIFIC ANTIGEN DIAGNOSTIC [SQPSA] Order #: [id number] FUTURE Prescriptions as of 11/09/2024 - predniSONE [...] Encounter Status:Closed by Severo DENT on 11/09/24 [facility] CNOVon 10-29-2024 CNOV Office Visit (RADTSA ) MATEO STEARNS ([id number]) 1960 M Date Time Provider Department 10/29/24 10:30 AM Severo DENT [facility] During your visit today, we recorded the [...] Encounter Status:Closed by Severo DENT on 10/29/24 [facility] CNOVon 10-22-2024 CNOV Office Visit (RADTSA ) MATEO STEARNS ([id number]) 1960 M Date Time Provider Department 10/22/24 10:30 AM Severo DENT RADSLIME[facility] During your visit today, we recorded the [...] Encounter Status:Closed by Severo DENT on 10/22/24 [facility] 10-15-2024 CNOV Office Visit (RADTSA ) MATEO STEARNS ([id number]) 1960 M Date Time Provider Department 10/15/24 [...] Status:Closed by Severo DENT on 10/15/24 [facility] Auto Differential pane l (Bld)on 10-11-2024 Basophils (Bld) [#/Vol] 0.04 10*3/uL [facility] Differential cell count method Nom (Bld) Auto [facility] Eosinophils (Bld) [#/Vol] 0.07 10*3/uL [facility] Immature granulocytes (Bld) [#/Vol] 0.16 10*3/uL High [facility] Immature granulocytes/100 WBC (Bld) 1.1 % [facility] Lymphocytes (Bld) [#/Vol] 1.10 10*3/uL [facility] Monocytes (Bld) [#/Vol] 0.45 10*3/uL [facility] Neutrophils (Bld) [#/Vol] 12.30 10*3/uL High [facility] Nucleated RBC (Bld) [#/Vol] [facility] Nucleated RBC/100 WBC (Bld) [Ratio] 0.0 % /100 WBC [facility] Platelet mean volume (Bld) [Entitic vol] 8.6 fL Low 9.0 - 12.7 fL [facility] Platelets (Bld) [#/Vol] 317 10*3/uL [facility] WBC (Bld) [#/Vol] 14.12 10*3/uL High [facility] Basophils (Bld) [#/Vol] 0.04 10*3/uL Normal <0.11 [facility] Comment on above: Order Comment: Speci men Type: BLOOD SPECIMENOrdering Facility: [facility] Address: [address] [place] [address] Performed By: #### 5 7021-8 ####[facility] LABCLIA [id number] [place] [address] Basophils/100 WBC (Bld) 0.3 % Normal [facility] Comment on above: Order Comment: Speci men Type: BLOOD SPECIMENOrdering Facility: [facility] Address: [address] [place] [address] Performed By: #### 5 7021-8 ####[facility] LABCLIA [id number] [place] [address] Differential cell count method Nom (Bld) Auto Normal [facility] Comment on above: Order Comment: Speci men Type: BLOOD SPECIMENOrdering Facility: [facility] Address: [address] [place] [address] Performed By: #### 5 7021-8 ####[facility] LABCLIA [id number] [place] [address] Eosinophils (Bld) [#/Vol] 0.07 10*3/uL Normal <0.46 [facility] Comment on above: Order Comment: Speci men Type: BLOOD SPECIMENOrdering Facility: [facility] Address: [address] [place] [address] Performed By: #### 5 7021-8 ####[facility] LABCLIA [id number] [place] [address] Eosinophils/100 WBC (Bld) 0.5 % Normal [facility] Comment on above: Order Comment: Speci men Type: BLOOD SPECIMENOrdering Facility: [facility] Address: [address] [place] [address] Performed By: #### 5 7021-8 ####[facility] LABCLIA [id number] [place] [address] Erythrocyte distribution width (RBC) [Ratio] 13.6 % Normal 11.5-15.0 [facility] Comment on above: Order Comment: Speci men Type: BLOOD SPECIMENOrdering Facility: [facility] Address: [address] [place] [address] Performed By: #### 5 7021-8 ####[facility] LABCLIA [id number] [place] [address] Hematocrit (Bld) [Volume fraction] 43.8 % Normal 39.0-51.0 [facility] Comment on above: Order Comment: Speci men Type: BLOOD SPECIMENOrdering Facility: [facility] Address: [address] [place] [address] Performed By: #### 5 7021-8 ####[facility] LABIA [id number] [place] [address] Hemoglobin (Bld) [Mass/Vol] 14.8 g/dL Normal 13.0-17.0 [facility] Comment on above: Order Comment: Speci men Type: BLOOD SPECIMENOrdering Facility: [facility] Address: [address] [place] [address] Performed By: #### 5 7021-8 ####[facility] LABCLIA [id number] [place] [address] Immature granulocytes (Bld) [#/Vol] 0.16 10*3/uL High <0.10 [facility] Comment on above: Order Comment: Speci men Type: BLOOD SPECIMENOrdering Facility: [facility] Address: [address] [place] [address] Performed By: #### 5 7021-8 ####[facility] LABCLIA [id number] [place] [address] Immature granulocytes/100 WBC (Bld) 1.1 % Normal [facility] Comment on above: Order Comment: Speci men Type: BLOOD SPECIMENOrdering Facility: [facility] Address: [address] [place] [address] Performed By: #### 5 7021-8 ####[facility] LABCLIA [id number] [place] [address] Lymphocytes (Bld) [#/Vol] 1.10 10*3/uL Normal 1.00-4.00 [facility] Comment on above: Order Comment: Speci men Type: BLOOD SPECIMENOrdering Facility: [facility] Address: [address] [place] [address] Performed By: #### 5 7021-8 ####[facility] LABCLIA [id number] [place] [address] Lymphocytes/100 WBC (Bld) 7.8 % Normal [facility] Comment on above: Order Comment: Speci men Type: BLOOD SPECIMENOrdering Facility: [facility] Address: [address] [place] [address] Performed By: #### 5 7021-8 ####[facility] LABCLIA [id number] [place] [address] MCH (RBC) [Entitic mass] 30.4 pg Normal 26.0-34.0 [facility] Comment on above: Order Comment: Speci men Type: BLOOD SPECIMENOrdering Facility: [facility] Address: [address] [place] [address] Performed By: #### 5 7021-8 ####[facility] LABCLIA [id number] [place] [address] MCHC (RBC) [Mass/Vol] 33.8 g/dL Normal 30.5-36.0 [facility] Comment on above: Order Comment: Speci men Type: BLOOD SPECIMENOrdering Facility: [facility] Address: [address] [place] [address] Performed By: #### 5 7021-8 ####[facility] LABIA [id number] [place] [address] MCV (RBC) [Entitic vol] 89.9 fL Normal 80.0-100.0 [facility] Comment on above: Order Comment: Speci men Type: BLOOD SPECIMENOrdering Facility: [facility] Address: [address] [place] [address] Performed By: #### 5 7021-8 ####[facility] LABIA [id number] [place] [address] Monocytes (Bld) [#/Vol] 0.45 10*3/uL Normal <0.87 [facility] Comment on above: Order Comment: Speci men Type: BLOOD SPECIMENOrdering Facility: [facility] Address: [address] [place] [address] Performed By: #### 5 7021-8 ####[facility] LABIA [id number] [place] [address] Monocytes/100 WBC (Bld) 3.2 % Normal [facility] Comment on above: Order Comment: Speci men Type: BLOOD SPECIMENOrdering Facility: [facility] Address: [address] [place] [address] Performed By: #### 5 7021-8 ####[facility] LABCLIA [id number] [place] [address] Neutrophils (Bld) [#/Vol] 12.30 10*3/uL High 1.45-7.50 [facility] Comment on above: Order Comment: Speci men Type: BLOOD SPECIMENOrdering Facility: [facility] Address: [address] [place] [address] Performed By: #### 5 7021-8 ####[facility] LABCLIA [id number] [place] [address] Neutrophils/100 WBC (Bld) 87.1 % Normal [facility] Comment on above: Order Comment: Speci men Type: BLOOD SPECIMENOrdering Facility: [facility] Address: [address] [place] [address] Performed By: #### 5 7021-8 ####[facility] LABCLIA [id number] [place] [address] Nucleated RBC (Bld) [#/Vol] 10*3/uL Normal <0.01 [facility] Comment on above: Order Comment: Speci men Type: BLOOD SPECIMENOrdering Facility: [facility] Address: [address] [place] [address] Performed By: #### 5 7021-8 ####[facility] LABCLIA [id number] [place] [address] Nucleated RBC/100 WBC (Bld) [Ratio] 0.0 /100 WBC Normal [facility] Comment on above: Order Comment: Speci men Type: BLOOD SPECIMENOrdering Facility: [facility] Address: [address] [place] [address] Performed By: #### 5 7021-8 ####[facility] LABIA [id number] [place] [address] Platelet mean volume (Bld) [Entitic vol] 8.6 fL Low 9.0-12.7 [facility] Comment on above: Order Comment: Speci men Type: BLOOD SPECIMENOrdering Facility: [facility] Address: [address] [place] [address] Performed By: #### 5 7021-8 ####[facility] LABCLIA [id number] [place] [address] Platelets (Bld) [#/Vol] 317 10*3/uL Normal 150-400 [facility] Comment on above: Order Comment: Speci men Type: BLOOD SPECIMENOrdering Facility: [facility] Address: [address] [place] [address] Performed By: #### 5 7021-8 ####[facility] LABIA [id number] [place] [address] RBC (Bld) [#/Vol] 4.87 10*6/uL Normal 4.20-6.00 [facility] Comment on above: Order Comment: Speci men Type: BLOOD SPECIMENOrdering Facility: [facility] Address: [address] [place] [address] Performed By: #### 5 7021-8 ####[facility] LABIA [id number] [place] [address] WBC (Bld) [#/Vol] 14.12 10*3/uL High 3.70-11.00 [facility] Comment on above: Order Comment: Speci men Type: BLOOD SPECIMENOrdering Facility: [facility] Address: [address] [place] [address] Performed By: #### 5 7021-8 ####[facility] LABIA [id number] [place] [address] [facility] CBC W AUTO DIFF BLDon [facility] BASOPHILS # BLD AUTO 0.04 [facility] DIFFERENTIAL METHOD BLD Auto [facility] EOSINOPHIL # BLD AUTO 0.07 [facility] LYMPHOCYTES # BLD AUTO 1.1 [facility] MONOCYTES # BLD AUTO 0.45 [facility] NEUTROPHILS # BLD AUTO 12.3 High [facility] NRBC # BLD AUTO <0.01 NINF [facility] NRBC/100 WBC BLD-RTO 0 /100 WBC [facility] PLATELET # BLD AUTO 317 [facility] PMV BLD AUTO 8.6 fL Low 9.0 - 12.7 fL [facility] WBC # BLD AUTO 14.12 High [facility] IMM GRANULOCYTES # BLD AUTO 0.16 High [facility] IMM GRANULOCYTES/LEUK NFR BLD AUTO 1.1 % [facility] Specimen Type: BLOOD SPECIMEN [facility] Address: [address] [place] [address] Original Ordering Provider: Severo DENT [facility] 10-11-2024 CNOV Office Visit (RADTSA ) MATEO STEARNS ([id number]) 1960 M Date Time Provider Department 10/11/24 [...] Dayanna Call LPN Referring Provider: Severo DENT [[id number]] Allergies As of Date: 10/11/2024 (No Known Allergies) Date Reviewed: 10/01/2024 Reviewed by: Mona Melvin, CARIDAD - Fully Assessed Visit Diagnosis:Malignant neoplasm of prostate (HCC) [C61] Order(s):COMPLETE BLOOD COUNT AND DIFFERENTIAL [SQCBCDIF] Order #: [id number]. #:[id number] Prescriptions as of 10/11/2024 - predniSONE (DELTASONE) [...] Status:Closed by DAYANNA CALL on 10/11/24 Normal [facility] Laboratory - Hematology and Cell countson 10-11-2024 Basophils/100 WBC (Bld) 0.3 % [facility] Eosinophils/100 WBC (Bld) 0.5 % [facility] Erythrocyte distribution width (RBC) [Ratio] 13.6 % 11.5 - 15.0 % [facility] Hematocrit (Bld) [Volume fraction] 43.8 % 39.0 - 51.0 % [facility] Hemoglobin (Bld) [Mass/Vol] 14.8 g/dL 13.0 - 17.0 g/dL [facility] Lymphocytes/100 WBC (Bld) 7.8 % [facility] MCH (RBC) [Entitic mass] 30.4 pg 26.0 - 34.0 pg [facility] MCHC (RBC) [Mass/Vol] 33.8 g/dL 30.5 - 36.0 g/dL [facility] MCV (RBC) [Entitic vol] 89.9 fL 80.0 - 100.0 fL [facility] Monocytes/100 WBC (Bld) 3.2 % [facility] Neutrophils/100 WBC (Bld) 87.1 % [facility] RBC (Bld) [#/Vol] 4.87 10*6/uL 4.20 - 6.0 0 m/uL [facility] No Panel Informationon 10-11 Interpretation and review of laboratory results Abnormal [facility] CNOVon 10-08-2024 CNOV Office Visit (RADTSA ) MATEO [id number]) 1960 M Date Time Provider Department 10/08/24 10:30 AM Severo DENT During your visit today, we recorded the following information about you: Temperature Pulse Respiration Blood pressure 96.7 degrees 103/minute 18/minute 165/76 Weight 68.6 kg Severo Dent MD 10/08/2024 2:18 PM Signed Radiation Oncology - On Treatment Review (OTR) Note PATIENT NAME: Mateo Stearns PATIENT DIAGNOSIS: Prostate adenocarcinoma, initial PSA 4.46, biopsy Marne score 3 + 3 = 6 (grade [...] BLOOD COUNT AND DIFFERENTIAL [SQCBCDIF] Order #: [id number] FUTURE Prescriptions as of 10/08/2024 - predniSONE [...] Status:Closed by Severo DENT on 10/08/24 Normal [facility] CBC W Auto Differential pane l (Bld)on 10-04-2024 Basophils (Bld) [#/Vol] 0.03 10*3/uL [facility] Differential cell count method Nom (Bld) Auto [facility] Eosinophils (Bld) [#/Vol] [facility] Eosinophils/100 WBC (Bld) 0.0 % [facility] Hemoglobin (Bld) [Mass/Vol] 15.0 g/dL 13.0 - 17.0 g/dL [facility] Immature granulocytes (Bld) [#/Vol] 0.10 10*3/uL High [facility] Immature granulocytes/100 WBC (Bld) 0.9 % [facility] Lymphocytes (Bld) [#/Vol] 1.30 10*3/uL [facility] Monocytes (Bld) [#/Vol] 0.40 10*3/uL [facility] Neutrophils (Bld) [#/Vol] 9.47 10*3/uL High [facility] Nucleated RBC (Bld) [#/Vol] [facility] Nucleated RBC/100 WBC (Bld) [Ratio] 0.0 % /100 WBC [facility] Platelet mean volume (Bld) [Entitic vol] 8.6 fL Low 9.0 - 12.7 fL [facility] Platelets (Bld) [#/Vol] 330 10*3/uL [facility] WBC (Bld) [#/Vol] 11.30 10*3/uL High [facility] Basophils (Bld) [#/Vol] 0.03 10*3/uL Normal <0.11 [facility] Comment on above: Order Comment: Speci men Type: BLOOD SPECIMENOrdering Facility: [facility] Address: [address] [place] [address] Performed By: #### 5 7021-8 ####[facility] LABCLIA [id number] [place] [address] Basophils/100 WBC (Bld) 0.3 % Normal [facility] Comment on above: Order Comment: Speci men Type: BLOOD SPECIMENOrdering Facility: [facility] Address: [address] [place] [address] Performed By: #### 5 7021-8 ####[facility] LABCLIA [id number] [place] [address] Differential cell count method Nom (Bld) Auto Normal [facility] Comment on above: Order Comment: Speci men Type: BLOOD SPECIMENOrdering Facility: [facility] Address: [address] [place] [address] Performed By: #### 5 7021-8 ####[facility] LABCLIA [id number] [place] [address] Eosinophils (Bld) [#/Vol] 10*3/uL Normal <0.46 [facility] Comment on above: Order Comment: Speci men Type: BLOOD SPECIMENOrdering Facility: [facility] Address: [address] [place] [address] Performed By: #### 5 7021-8 ####[facility] LABCLIA [id number] [place] [address] Eosinophils/100 WBC (Bld) 0.0 % Normal [facility] Comment on above: Order Comment: Speci men Type: BLOOD SPECIMENOrdering Facility: [facility] Address: [address] [place] [address] Performed By: #### 5 7021-8 ####[facility] LABCLIA [id number] [place] [address] Erythrocyte distribution width (RBC) [Ratio] 13.5 % Normal 11.5-15.0 [facility] Comment on above: Order Comment: Speci men Type: BLOOD SPECIMENOrdering Facility: [facility] Address: [address] [place] [address] Performed By: #### 5 7021-8 ####[facility] LABCLIA [id number] [place] [address] Hematocrit (Bld) [Volume fraction] 43.9 % Normal 39.0-51.0 [facility] Comment on above: Order Comment: Speci men Type: BLOOD SPECIMENOrdering Facility: [facility] Address: [address] [place] [address] Performed By: #### 5 7021-8 ####[facility] LABCLIA [id number] [place] [address] Hemoglobin (Bld) [Mass/Vol] 15.0 g/dL Normal 13.0-17.0 [facility] Comment on above: Order Comment: Speci men Type: BLOOD SPECIMENOrdering Facility: [facility] Address: [address] [place] [address] Performed By: #### 5 7021-8 ####[facility] LABCLIA [id number] [place] [address] Immature granulocytes (Bld) [#/Vol] 0.10 10*3/uL High <0.10 [facility] Comment on above: Order Comment: Speci men Type: BLOOD SPECIMENOrdering Facility: [facility] Address: [address] [place] [address] Performed By: #### 5 7021-8 ####[facility] LABCLIA [id number] [place] [address] Immature granulocytes/100 WBC (Bld) 0.9 % Normal [facility] Comment on above: Order Comment: Speci men Type: BLOOD SPECIMENOrdering Facility: [facility] Address: [address] [place] [address] Performed By: #### 5 7021-8 ####[facility] LABCLIA [id number] [place] [address] Lymphocytes (Bld) [#/Vol] 1.30 10*3/uL Normal 1.00-4.00 [facility] Comment on above: Order Comment: Speci men Type: BLOOD SPECIMENOrdering Facility: [facility] Address: [address] [place] [address] Performed By: #### 5 7021-8 ####[facility] LABCLIA [id number] [place] [address] Lymphocytes/100 WBC (Bld) 11.5 % Normal [facility] Comment on above: Order Comment: Speci men Type: BLOOD SPECIMENOrdering Facility: [facility] Address: [address] [place] [address] Performed By: #### 5 7021-8 ####[facility] LABCLIA [id number] [place] [address] MCH (RBC) [Entitic mass] 30.5 pg Normal 26.0-34.0 [facility] Comment on above: Order Comment: Speci men Type: BLOOD SPECIMENOrdering Facility: [facility] Address: [address] [place] [address] Performed By: #### 5 7021-8 ####[facility] LABCLIA [id number] [place] [address] MCHC (RBC) [Mass/Vol] 34.2 g/dL Normal 30.5-36.0 [facility] Comment on above: Order Comment: Speci men Type: BLOOD SPECIMENOrdering Facility: [facility] Address: [address] [place] [address] Performed By: #### 5 7021-8 ####[facility] LABIA [id number] [place] [address] MCV (RBC) [Entitic vol] 89.2 fL Normal 80.0-100.0 [facility] Comment on above: Order Comment: Speci men Type: BLOOD SPECIMENOrdering Facility: [facility] Address: [address] [place] [address] Performed By: #### 5 7021-8 ####[facility] LABIA [id number] [place] [address] Monocytes (Bld) [#/Vol] 0.40 10*3/uL Normal <0.87 [facility] Comment on above: Order Comment: Speci men Type: BLOOD SPECIMENOrdering Facility: [facility] Address: [address] [place] [address] Performed By: #### 5 7021-8 ####[facility] LABCLIA [id number] [place] [address] Monocytes/100 WBC (Bld) 3.5 % Normal [facility] Comment on above: Order Comment: Speci men Type: BLOOD SPECIMENOrdering Facility: [facility] Address: [address] [place] [address] Performed By: #### 5 7021-8 ####[facility] LABCLIA [id number] [place] [address] Neutrophils (Bld) [#/Vol] 9.47 10*3/uL High 1.45-7.50 [facility] Comment on above: Order Comment: Speci men Type: BLOOD SPECIMENOrdering Facility: [facility] Address: [address] [place] [address] Performed By: #### 5 7021-8 ####[facility] LABCLIA [id number] [place] [address] Neutrophils/100 WBC (Bld) 83.8 % Normal [facility] Comment on above: Order Comment: Speci men Type: BLOOD SPECIMENOrdering Facility: [facility] Address: [address] [place] [address] Performed By: #### 5 7021-8 ####[facility] LABCLIA [id number] [place] [address] Nucleated RBC (Bld) [#/Vol] 10*3/uL Normal <0.01 [facility] Comment on above: Order Comment: Speci men Type: BLOOD SPECIMENOrdering Facility: [facility] Address: [address] [place] [address] Performed By: #### 5 7021-8 ####[facility] LABCLIA [id number] [place] [address] Nucleated RBC/100 WBC (Bld) [Ratio] 0.0 /100 WBC Normal [facility] Comment on above: Order Comment: Speci men Type: BLOOD SPECIMENOrdering Facility: [facility] Address: [address] [place] [address] Performed By: #### 5 7021-8 ####[facility] LABCLIA [id number] [place] [address] Platelet mean volume (Bld) [Entitic vol] 8.6 fL Low 9.0-12.7 [facility] Comment on above: Order Comment: Speci men Type: BLOOD SPECIMENOrdering Facility: [facility] Address: [address] [place] [address] Performed By: #### 5 7021-8 ####[facility] LABCLIA [id number] [place] [address] Platelets (Bld) [#/Vol] 330 10*3/uL Normal 150-400 [facility] Comment on above: Order Comment: Speci men Type: BLOOD SPECIMENOrdering Facility: [facility] Address: [address] [place] [address] Performed By: #### 5 7021-8 ####[facility] LABCLIA [id number] [place] [address] RBC (Bld) [#/Vol] 4.92 10*6/uL Normal 4.20-6.00 [facility] Comment on above: Order Comment: Speci men Type: BLOOD SPECIMENOrdering Facility: [facility] Address: [address] [place] [address] Performed By: #### 5 7021-8 ####[facility] LABCLIA [id number] [place] [address] WBC (Bld) [#/Vol] 11.30 10*3/uL High 3.70-11.00 [facility] Comment on above: Order Comment: Speci men Type: BLOOD SPECIMENOrdering Facility: [facility] Address: [address] [place] [address] Performed By: #### 5 7021-8 ####[facility] LABCLIA [id number] [place] [address] [facility] CBC W AUTO DIFF BLDon [facility] BASOPHILS # BLD AUTO 0.03 [facility] DIFFERENTIAL METHOD BLD Auto [facility] EOSINOPHIL # BLD AUTO <0.03 [facility] LYMPHOCYTES # BLD AUTO 1.3 [facility] MONOCYTES # BLD AUTO 0.4 [facility] NEUTROPHILS # BLD AUTO 9.47 High [facility] NRBC # BLD AUTO <0.01 [facility] NRBC/100 WBC BLD-RTO 0 /100 WBC [facility] PLATELET # BLD AUTO 330 [facility] PMV BLD AUTO 8.6 fL Low 9.0 - 12.7 fL [facility] WBC # BLD AUTO 11.3 High [facility] Eosinophils/100 WBC (Bld) 0 % [facility] Hemoglobin (Bld) [Mass/Vol] 15 g/dL 13.0 - 17.0 g/dL [facility] IMM GRANULOCYTES # BLD AUTO 0.1 High [facility] IMM GRANULOCYTES/LEUK NFR BLD AUTO 0.9 % [facility] Specimen Type: BLOOD SPECIMEN [facility] Address: [address] [place] [address] Original Ordering Provider: Severo Mohan 10-04-2024 CNOV Office Visit (RADTSA ) MATEO STEARNS ([id number]) 1960 M Date Time Provider Department 10/04/24 2:30 PM LAB/PORT RAJESH ANA MIRELLATSKrysta During your visit today, we recorded the [...] BLOOD COUNT AND DIFFERENTIAL [SQCBCDIF] Order #: [id number]. #:[id number] Prescriptions as of 10/04/2024 - predniSONE (DELTASONE) [...] 06/24/2024 Visit Notes: >> Dayanna Call LPN [facility] Oct 04, 2024 3:20 PM Status: Signed [...] Status:Closed by DAYANNA CALL on 10/04/24 Normal [facility] Laboratory - Hematology and Cell countson 10-04-2024 Basophils/100 WBC (Bld) 0.3 % [facility] Erythrocyte distribution width (RBC) [Ratio] 13.5 % 11.5 - 15.0 % [facility] Hematocrit (Bld) [Volume fraction] 43.9 % 39.0 - 51.0 % [facility] Lymphocytes/100 WBC (Bld) 11.5 % [facility] MCH (RBC) [Entitic mass] 30.5 pg 26.0 - 34.0 pg [facility] MCHC (RBC) [Mass/Vol] 34.2 g/dL 30.5 - 36.0 g/dL [facility] MCV (RBC) [Entitic vol] 89.2 fL 80.0 - 100.0 fL [facility] Monocytes/100 WBC (Bld) 3.5 % [facility] Neutrophils/100 WBC (Bld) 83.8 % [facility] RBC (Bld) [#/Vol] 4.92 10*6/uL 4.20 - 6.0 0 m/uL [facility] No Panel Informationon 10-04 Interpretation and review of laboratory results Abnormal [facility] CNOVon 10-01-2024 CNOV Office Visit (RADTSA ) MATEO STEARNS ([id number]) 1960 M Date Time Provider Department 10/01/24 [...] by: Mona Melvin, RN - Fully Assessed Primary Visit Diagnosis:Malignant [...] Encounter Status:Closed by Severo DENT on 10/01/24 [facility] CNOVon 09-25-2024 CNOV Office Visit (RADTSA ) MATEO STEARNS ([id number]) 1960 M Date Time Provider Department 09/25/24 [...] Severo Dent MD Referring Provider: Severo DENT [[id number]] Allergies As of Date: 09/25/2024 (No Known [...] Encounter Status:Closed by Severo DENT on 09/26/24 [facility] 09-24-2024 SANDEE Telephone (ENRIQUEA) MATEO STEARNS ([id number]) 1960 M Date Time Provider Department 09/24/24 Severo DENT During your visit today, we [...] BLOOD COUNT AND DIFFERENTIAL [SQCBCDIF] Order #: [id number] FUTURE Prescriptions as of 09/24/2024 - predniSONE [...] Encounter Status:Closed by DAYANNA CALL on 09/24/24 [facility] CNOVon 09-17-2024 CNOV Office Visit (CARI ) MATEO STEARNS ([id number]) 1960 M Date Time Provider Department 09/17/24 11:45 AM Severo DENT During your visit today, we recorded the following information about you: Referring Provider: Severo DENT [[id number]] Allergies As of Date: 09/17/2024 (No Known Allergies) Date Reviewed: 09/11/2024 Reviewed by: Dayanna Call LPN - Fully Assessed Reason for Visit: Simulation Request Form [8985] Primary Visit Diagnosis:Malignant neoplasm of prostate (HCC) [C61] Order(s):RADIATION TREATMENT PER RADIATION ONCOLOGIST PLAN [[id number]] Order #: [id number]: 1 PT ED CANCER [[id number]] Order #: [id number]: 1 CT SIM PLANNING RADIATION ONCOLOGY [[id number]] Order #: [id number] Prescriptions as of 09/17/2024 - predniSONE (DELTASONE) [...] Encounter Status:Closed by Severo DENT on 09/17/24 [facility] 09-14-2024 SANDEE Telephone (MIRELLAAmpulseA) JINNYMATEO MARSHALL ([id number]) 1960 M Date Time Provider Department 09/14/24 [...] Encounter Status:Closed by MONA MELVIN on 09/14/24 [facility] CNOVon 09-11-2024 CNOV Office Visit (RADTSA ) MATEO STEARNS Schuyler ([id number]) 1960 M Date Time Provider Department 09/11/24 [...] DIAGNOSIS: Prostate adenocarcinoma, initial PSA 4.46, biopsy Marne score 3 + 3 = 6 (grade group 1), clinical stage T1c, N0, M0, stage I [cT1a-c/T2a, N0, M0, PSA <10, GG 1] (AJCC 8th ed.), s/p TRUS Random biopsy. HPI: Patient in for follow-up to discuss treatment options again. Laboratory: [employer] genomic risk score: 0.43 (low risk) PSA. [...] IMRT a (more content not included)... [facility], [facility]07 Interpretation and review of laboratory results Abnormal [facility] PROSTATE SPECIFIC ANTIGEN DX 7.20 ng/mL High NINF - 4.00 ng/mL [facility] No Panel Informationon 09-07 [facility] CNOVon 07-12-2024 CNOV Office Visit (RADTSA ) MATEO STEARNS ([id number]) 1960 M Date Time Provider Department 07/12/24 [...] be checked (more content not included)... Normal [facility] CNOVon 06-21-2024 CNOV Office Visit (RADTSA ) MATEO STEARNS ([id number]) 1960 [place] Date Time Provider Department 06/21/24 [...] with prostate adenocarcinoma, initial PSA 4.46, biopsy Marne score 3 + 3 = 6 (grade [...] muscle aches (more content not included)... Normal [facility] CNOVon 06-01-2024 CNOV Office Visit (UROLMN ) MATEO STEARNS ([id number]) 1960 M Date Time Provider Department 06/01/24 1:45 PM AMANDEEP CRISOSTOMO URON During your visit today, we recorded the following information about you: Pulse Blood pressure Weight Height 88/minute 138/81 68 kg 1.753 m Amandeep Crisostomo MD 06/24/2024 4:18 PM Signed Referring Provider: Chief Complaint: Recently diagnosed CaP HPI: 63 year old male from [place], [place] with a PMHx of COPD (40 pack-year smoker), Afib (on ASA), and GERD diagnosed with CAP in 05/20 which showed 2 cores of Marne 6 disease. He has sever COPD with [...] review Assessment 63 year old male from [place], [place] with a PMHx of COPD (40 pack-year smoker and poor oxygenation status), Afib (on ASA), and GERD diagnosed with CAP in 05/20 which showed 2 cores of Marne 6 disease. Recently had more + cores on a repeat biopsy and is here (more content not included)... Normal [facility] URINALYSIS, REFLEX MICROSCOP ICon 06-01-2024 Bilirubin Ql (U) Negative Negative [facility] Clarity (Unsp spec) Clear Clear [facility] Color (U) Yellow Yellow [facility] Glucose Test strip (U) [Mass/Vol] Negative Negative [facility] Hemoglobin Ql (U) Negative Negative [facility] Interpretation and review of laboratory results Normal [facility] Ketones Ql (U) Negative Negative [facility] Leukocyte esterase Test strip Ql (U) Negative Negative [facility] Nitrite Ql (U) Negative Negative [facility] pH (U) 5.5 [pH] NINF - 8.5 [facility] Protein (U) [Mass/Vol] Negative Negative [facility] Specific gravity (U) [Rel density] 1.009 1.005 - 1.030 [facility] Urobilinogen Ql (U) 0.2 EU/dL 0.2-1.0 EU/dL [facility] This test was developed and its performance characteristics determined by [facility]'s Amandeep Derrick [facility] [place] ([facility]). It has not been cleared or approved by the FDA. [facility] is regulated under CLIA as qualified to perform high-complexity testing. This test is used for clinical purposes. It should not be regarded as investigational or for research. [facility] Bilirubin Ql (U) Negative Normal Negative [facility] Comment on above: Order Comment: Speci men Type: URINE SPECIMENOrdering Facility: [facility] Address: [address] [place] [address] Performed By: #### L [id number] ####[facility] LABCLIA [id number] [place] [address] [place] Clarity (Unsp spec) Clear Normal Clear [facility] Comment on above: Order Comment: Speci men Type: URINE SPECIMENOrdering Facility: [facility] Address: [address] [place] [address] Performed By: #### L [id number] ####[facility] LABCLIA [id number] [place] [address] [place] Color (U) Yellow Normal Yellow [facility] Comment on above: Order Comment: Speci men Type: URINE SPECIMENOrdering Facility: [facility] Address: [address] [place] [address] Performed By: #### L [id number] ####[facility] LABCLIA [id number] [place] [address] [place] Glucose Test strip (U) [Mass/Vol] Negative Normal Negative [facility] Comment on above: Order Comment: Speci men Type: URINE SPECIMENOrdering Facility: [facility] Address: [address] [place] [address] Performed By: #### L [id number] ####[facility] LABCLIA [id number] [place] [address] [place] Hemoglobin Ql (U) Negative Normal Negative [facility] Comment on above: Order Comment: Speci men Type: URINE SPECIMENOrdering Facility: [facility] Address: [address] [place] [address] Performed By: #### L [id number] ####[facility] LABCLIA [id number] [place] [address] [place] Ketones Ql (U) Negative Normal Negative [facility] Comment on above: Order Comment: Speci men Type: URINE SPECIMENOrdering Facility: [facility] Address: [address] [place] [address] Performed By: #### L [id number] ####[facility] LABCLIA [id number] [place] [address] [place] Leukocyte esterase Test strip Ql (U) Negative Normal Negative [facility] Comment on above: Order Comment: Speci men Type: URINE SPECIMENOrdering Facility: [facility] Address: [address] [place] [address] Performed By: #### L [id number] ####[facility] LABCLIA [id number] [place] [address] [place] Nitrite Ql (U) Negative Normal Negative [facility] Comment on above: Order Comment: Speci men Type: URINE SPECIMENOrdering Facility: [facility] Address: [address] [place] [address] Performed By: #### L [id number] ####[facility] LABCLIA [id number] [place] [address] [place] pH (U) 5.5 [pH] Normal <8.5 [facility] Comment on above: Order Comment: Speci men Type: URINE SPECIMENOrdering Facility: [facility] Address: [address] [place] [address] Performed By: #### L [id number] ####[facility] LABCLIA [id number] [place] [address] [place] Protein (U) [Mass/Vol] Negative Normal Negative [facility] Comment on above: Order Comment: Speci men Type: URINE SPECIMENOrdering Facility: [facility] Address: [address] [place] [address] Performed By: #### L [id number] ####[facility] [id number] [address] STATES OF [facility] Specific gravity (U) [Rel density] 1.009 Normal 1.005-1.030 [facility] Comment on above: Order Comment: Speci men Type: URINE SPECIMENOrdering Facility: [facility] Address: [address] [place] [address] Performed By: #### L [id number] ####[facility] [id number] [address] [place] Urobilinogen Ql (U) 0.2 EU/dL Normal 0.2-1.0 EU/dL [facility] Comment on above: Order Comment: Speci men Type: URINE SPECIMENOrdering Facility: [facility] Address: [address] [place] [address] Performed By: #### L [id number] ####[facility] [id number] [address] [place] Ambulatory Visit Summaryon 0 05-21-2024 Ambulatory Visit Summary JOSE ANGEL STEARNSHEMA Payan :1960 Visit Date:05/21/2024 Ambulatory Visit Instructions Your [...] [facility] [address], [place] [address] [phone] Someone Will Contact You Regarding These Appointments [facility] External Ambulatory Referral, Other (needs to be [...] often, espec (more content not included)... Normal [facility] Patient Educationon 05-21-20 Patient Education Oncology [...] likelihood that the cancer will spread. ? Marne 6 or lower: This indicates that the cancer cells look similar to normal prostate cells (well differentiated). ? Brenden 7: This indicates that the cancer cells look somewhat similar to normal prostate cells (moderately differentiated). ? Marne 8, 9, or 10: This indicates that [...] external be (more content not included)... Normal [facility] Urology Office/Clinic Noteon 05-21-2024 Urology Office/Clinic [...] 10%. 2 HGPINs. S/p TRUS/bx 05/01/24 - Marne 6 (3+3) in 9/12 cores. 30% core [...] [facility] [address], [place] [address] [phone] Additional Instructions: referral to [facility] to discuss [...] 12:43 EDT Coding Summary.on 05-17-2024 Coding Summary. OOGAPqvc46OVr6dRv+PG h lYWQ+IJ7SCBHwC68pjPGt gA0kO8QOHUhTJstzZUBWT EvIPkMpoeLqDZ2jnHSlHX Ju IC8+TA5uXIFfSsyfrPZqu 9A3yOU4P10znj7jGZapxR J5QPJhNsVlhrufg7dwsSb 6IDcuNmluOyBt WKLhcX06WYD4tZ40Zu74b OYbqXWpf8gdkNf0XzAmHH MmPLX3fDgcHIkcj4MoETK qD25xrSRni5M7 UDMkaVqqrKWqMoLsiDO6h R4nGFildsrgs3peaxijJg a5wo41mBInw1H3wSL9S7T hoiJ9FJBarTSa XebgkULNxQ7bcvzub8crv hkrYwVtFWUxEBc5ZAk0OD CnoRecQiHeQC74IKB9TYS wmnInQ5RhUVRz uGrjWiJ1o8G5Zt8BX5CVS hgyE0BNLRIVJBqtoZX+PC 05ez94T8VcUtzmCue3VKS mIFJ5lGR1oD2w IKAlKEtbt7Q0qMK8O9Clp qYuzq4ux7gfGBKiDFcyK3 3beNKij9T8NCPdpWJ8SMB rzOkdFmSttJ95 Oyc+TFJbpElfg3DsEyivl 7svn5cknSn6LpdnDKJpbl BihNszILQ9a8EjCn3aSXZ ywYI7tJQ3pE7u NmFeKxW8AHawX101NwVsb MMdLnqfD37bX9CuvFM+PH OlSqp2COSuwEryKQ9sM9B hZGRpbmctbGVm dOhbUT8nYKGnenupHRIss Z5pZMTdA2i9CeAeJoM4ML hiB5GpYVMvfslwXx45sJ3 cNiNdYpK8JMtj S8KpwwT8UOMikWWjFHvrT LH6V74eh6I0DGUoNOPgUI X9iKJ9mT7bhQntwxqadRN mdDsgdmVydGlj IQlaBPnmE589FVCkxWzxO kNvZGluZyBEYXRlOiAgMD YvMjAvMjAyNDwvdGQ+PHR mFHV6mVuvDKCs nTFsUCqzZg6zdKpotLpjV A7nMEKcjsfxHZOacB9qMS CjqSBlbXiyWP8xDMKnfgo yv405DfJdXJW7 BUItnUSnH5LqgF4kFiQrX JScXJViZ4ZxoTJrMKjnG4 77QMqaWwP7DRNfchZiE0P sLWFsaWduOiB0 z4O8Jh4Mz6BnuobgY4Quk WJeUlKkZjhoWGu3L2WiMc wvdHI+GJ25IGTsFZ54MOu 9ATH5hTdkKZcj EUMiR5NxxB2eNdLnKKUiU GRkOyc+PHRhYmxlIHdpZH RoPScxMDAlJyBzdHlsZT0 fRi0hCKZpFIHi dBtepWAaJxGcl2sxPSYjG NtaEV9kgDymI7IhaTL0MY Rqg6b4Vf66K97lD2AcdLW +KFEguBV2iEZ1 cF9fHcZgMzJ3MIhkS161C yTteKMxYnqfm8jcb6pcsN n1LnZ9NAWghcCsyOifIYM 1u2RyWj71V41f IHdpZHRoPSIxNSUiIHZhb Pwxur2flV2fOg4+PGNvbC O7fQK3yD0iKyEdKhH8TZe bU766JvRekGEi Xafgo8pmf7wjmMo2FmAbI JYawuRrwXsoPKV7g6WgJw 74T7AcdXmuy4NmOur5pq6 3fMUhx3T5zQQ6 Y0CdVFDyxdiglAUrgToaQ M1oDKUioiweITUojR4bEY DaF3h5RhAiBmY8TShoB1Q glrX3NXWztTLr JRZepTMTfQ8ftngdl4mor zyaVfYlNRDqMKn2KTf4BV PmvAzzRwNzUGX2AeG8LOM 5yJSlkK4qrRlm bwxxyE4bAgn+FLP0fQIrr ATTWZ8gIplfoTA+PHRkIH A7tDeaICvxQQNomB0kFED vX8s7HhKdDiK3 WJrjH6LytoO7FYQybVGwW XSvzKBCeF3yvgalw0zikf ltFaDlWZQdXFx5LXe7FSX saWduOiBsZWZ0 OdS7HQE3xOYwbL6zuMqop lsryM1tYaz+QmlydGggRG Y6SQe3Q2RfKog9ZIZnmBf sYE5zaQKnERpr Vj3jwRdlpLsbGG4eDWGre wgkh493QaRsc5fkGMSbfZ KgWXeyTQB6F95pw5X8SGX jHCHqEAK6zOI6 gO2mvAcwehaovXQahSlwx eHncWhlVExmXXwyA612QL MgqGimDsEgEIu0A3IdXxg 7VEXfiPcxYH7z lOEhUOnvHg1loHslgEqkF T2zBGTevswwh141RtJdm0 pfLVFhjXRnHOesBDA6S10 ox0K8RWCsGCHf NIV1uVP6lP4ewOyomlvmn GVmdDsgdmVydGljYWwtYW joE399TCWhaGrfOfOesLu 9I7SwEdr2WDOm vGhkJX6zuEIbGOyqOc3ez OlufRbdMB4iBHRllducj6 60ChBjy2moWVJyuKStFBk nZRJ5B67ib0V5 UGClZOGiLFN4qXZ8qY5um GlnbjogbGVmdDsgdmVydG myJEnnOEnfS120OXCuhTy nPlBhdGllbnQg SZtxZMz5H6WmBelajWC+P W57RCEgOQ77sPHakZNxa1 iqyNc3DyKgUSBfMHD6fLz jBTqzv5IzUZQa E30klENrb4I1EUOvjIqjo PEsLeAutXJ1wB7bBIyzaa ssp8szfdxjSmrie6dptk9 4rM46L21vJJbj ZHRoPSIzMCUiIHZhbGlnb s7bsN8tBl4+CAMblNG0lV L7cH3gCPLdFqJ1LKzoA09 9InRvcCIvPjxj o0cjv1imiEk1LbA1LDItw dSeoLbgMWH6n5PgEx77K7 9sIHdpZHRoPSIyMCUiIHZ ahKbmap5lmX0r Ii8+GTNqkWY6lWI2fW1gB yWuHtK0ABlpS395AbCcoS ZrUwsdO74oQ9SofZB+PHR rSsl1WSNzbXwm HY4qhFBgOUmnRg1bZMO0O lNwZlIePAloI8ZdQMRqkn lhhqjfrTT5CGElIEEuzE0 9Df2wkHpqPPUy xAFIeO3sxanmq4khqlcuI xYpGKXkUMx7LGb6EABokD yjEvMbHBR3OyE9MKL4fQT ccB8sfPmmsujc rT8wY1DwRKPetelvXq90f P6vEbVoXzX0UJmvUoc+SE 4IUAqtX3aSTJAQV5VVHBN gVzwvdGQ+PHRk MZA2qLevJAbbWBEyeE9xW HZoN8v6CbHkRvV5AQzzL2 BmAZDbadrbUj25bJ7oMkM kNpV1NUgyE4Yl ebL2DOOhlHLnTTbxRDZ5U 89vw5I2VVLfJHOhGRN8jD A3nO7uuKvkvpvnbZUlrSu gdmVydGljYWwt SZcdG267NZFooWyqUeR9B gE2YdT4DGr1T0VsKkr7BG VlmIoyZL3uhRZoEEvsBi8 myLlekTlcIU8a CPGmgjwyJTEnaL7gBVRlk AAukKfzVB2iAIJaxcjqw3 20AcZcVBH9JUGyrQXzZ2I vhD6kYrWfFLLx TUPkV5GleHLxIBzyP472L AceSsL5ZGBqzxCxH9EkTR FltUruTlB1g7J8Lm22ZRQ ZZWFyczwvdGQ+ WFMrNSM4iXhqGEasTNJqb L6kCXDxK8a9WmBwSgV3FD qdY1SzSBUouggsLl24vL7 wVbTaNeL0LSbz C7RuyrG8YLCruTQlKUltB CJ0M23ma3P1KOZiYFIjAZ I7bSF0gG7xaXyimeavbJC mdDsgdmVydGlj FYzmOFieI439JDVsyZyrS o3xzTF1K5PvDlp6AZLahV ciGO9efDIdTKgfAa5dqMu jpTdjVK1cYJMd wqucDWHbaT6pWOOhwLIrg UjqUZ2hCXIunrviw393Cg HtTAQ3QGKmaYKbR5YweI2 yOiAjMDAwMDAw V4OrxUIyCOxsN056ZFqdU nG3QFAstjNsF9KnVWZzaP rfAkC2b5J5Mn6PbLDrKQS nGO28ND60ZH56 T5EeIxcaoCFpiWJ+PHRhY mxlIHdpZHRoPScxMDAlJy OslRmiQE9qQv0pYTIdINX vbGxhcHNlOiBj a1toZWUxNTkxRN2llRfuS 3EkwMN0YQMyo2d6Ld01P5 6dA1UbrRC+EPKwbWJ9xCM 8lD2wGrLhAdS6 TQwoO102BrTxzRNuFyhcr 3igx8svqSm6HiMjSCDnmz TsvEfpQUS1c8OdEz79I97 sIHdpZHRoPSIy SDMhEPZnpUznbx1ydS3wO i8+OVBisXP1iFC8tE8iAe AxIpK9LPsxR243CwFazEM hNmldJ55bD0Fy dXA+UXVkFld6JZIcjWkjO H6ydSFqJFdxOm7pQFU9Ny BwUrWlFWdgM6XjQDTasiq gharvfWY8EJLn NUMjoU32Rs6ibHopDn5nX WQeGSU8OYRgzLWjJ6FytO 3dAzUwWTPoLMFoG6QkzGC aVWalB640WLbg XbZ8SZAacbYfI3AnXWNro PikIiB7k6Q4He4TvPkadC LbJW1uYpYaQHe3C7KzEii 6MDUemCuiCO9d eWHnTCljZa0iiBcaaFyjK K4mMVMnbctjs305IcPtm5 dqSUGgiVPtIItdEJP6M86 xu1F2QWLyKOQq ACE5oNO3rL5tzBpksjvxs GVmdDsgdmVydGljYWwtYW nwK665BGGzaTpaXgVUCrh 0L7SgAmi2WAPq wMlfEC6acOHjEZjmNe8qi BhoyAxsRK2zSKXrnmaon8 37XlKyt5tcRBUlcDXuJXz rPCE1R58kn0E1 OGGuVPMoZYZ8yJU9jJ0mo GlnbjogbGVmdDsgdmVydG suAPnrZExaN330ZLUhoRv sIq4NMjw2L4Cc Lad9VETrxVkwSQ1nfRXkA ObjZz0sfGblmXwvZU4xUY Fcjbdfl885WyWsj5xcATS wcHQgVGltZXM7 B01jk5L1NWOeESUlRVR0o WK8rI2qrFpgwbfwtDQzcR pgeqKwvSlkSPeuXClqQ15 6IHRvcDsnPlBh eWVyOjwvdGQ+CK91vc07U 2OqLtlaFxn3OZMgHRY6xR I9qF7iJNJfAFmzy7W3lFR 1I6CzmoCjhv3r x6mbBBDgJVxuM (more content not included)... Normal [facility] Prostate Histology ([facility]) on 05-16-2024 Prostate Histology Diagnosis Info Invalid Interpretation Code [facility] Comment on above: Order Comment: left [...] Interpretation - - Acinar adenocarcinoma of prostate; Marne score 6(3+3); Tumor measures 0.1 cm in length; 6% of the core involved by tumor; 1 of 1 core involved; Perineural invasion not identified. MicroScopic Description - E:Prostate,Left Lateral [place]:Needle Biopsy Interpretation - - Atypical glands suspicious but not diagnostic for adenocarcinoma. MicroScopic Description - F:Prostate,Left [place]:Needle Biopsy Interpretation - - Benign prostatic tissue. MicroScopic Description - G:Prostate,Right Base:Needle Biopsy Interpretation - - Benign prostatic tissue. MicroScopic Description - H:Prostate,Right Lateral Base:Needle Biopsy Interpretation - - Benign prostatic tissue. MicroScopic Description - I:Prostate,Right Mid:Needle Biopsy Interpretation - - Benign prostatic tissue. MicroScopic Description - J:Prostate,Right Lateral Mid:Needle Biopsy Interpretation - - Benign prostatic tissue. MicroScopic Description - K:Prostate,Right [place]:Needle Biopsy Interpretation - - Benign prostatic tissue. MicroScopic Description - L:Prostate,Right Lateral [place]:Needle Biopsy Interpretation - - Benign prostatic tissue. [...] invasion not identified. MicroScopic Description - Q:Prostate,Left [place]:Needle Biopsy Interpretation - - Acinar adenocarcinoma of prostate; Brenden score 6(3+3); Tumor measures 0.1 cm in length; 3% of the core involved by tumor; 1 of 2 cores involved; MicroScopic Description - R:Prostate,Left [place]:Needle Biopsy Interpretation - - Benign prostatic tissue. [...] on: 05/16/2024 11:46:32 Performed By: #### 1 [id number] #### [address] [address] Consent for Procedure/Surger yon 05-01-2024 Consent for Procedure/Surgery [id number] .00TIFF Normal [facility] Consent for Treatmenton Consent for Treatment [id number] .00TIFF Normal [facility] IntraOperative Documentson 0 05-01-2024 IntraOperative Documents [id number] .00TIFF Vikki [facility] Main OR Intraoperative Recor don 05-01-2024 Main OR Intraoperative Record IntraOp Document Type FTURO Summary Primary Physician: Rufina VORA MD Finalized Date/Time: 05/01/24 12:17:31 Pt. Name: MATEO STEARNS /Sex: 1960 Male Med Rec #: [id number] Physician: Rufina VORA MD Financial #: [id number] Pt. 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 Name: JINNY ALIARAJANIHEMA Breen/Sex: 1960 Male Med Rec #: [id number] Physician: Rufina VORA MD Financial #: [id number] Pt. Type: O Room/Bed: / Admit/Disch: 05/01/24 [...] evaluation, 18 total biopsies were taken. Normal [facility] Comment on above: Result Comment: Elec tronically Signed By: DIONY CHANDLER, Rufina Arrington\Date and Time Signed: 05/01/24 12:04 EDT Outpatient Surgery Discharge Instructionon 05-01-2024 Outpatient Surgery Discharge Instruction [id number] .[id number] Normal [facility] Patient Educationon 05-01-20 Patient Education Custom [...] for your post-operative appointment in 1-2 weeks [phone] or [phone] Normal [facility] Prostate Histology ([facility]) on 05-01-2024 PH Method of Extraction Needle Biopsy Normal [facility] Comment on above: Order Comment: left base x 3 bites Left lateral mid x 3 bites Left apex x 4 bites Performed By: #### 1 [id number] #### [facility] [address] [place] [address] PH Number of Jars 3 Invalid Interpretation Code [facility] Comment on above: Order Comment: left base x 3 bites Left lateral mid x 3 bites Left apex x 4 bites Performed By: #### 1 [id number] #### [facility] [address] [place] [address] PH Specimen 1 L Apx Prostate Normal [facility] Comment on above: Order Comment: left base x 3 bites Left lateral mid x 3 bites Left apex x 4 bites Performed By: #### 1 [id number] #### [facility] [address] [place] [address] PH Specimen 10 R Lat Bse Prost Normal [facility] Comment on above: Order Comment: left base x 3 bites Left lateral mid x 3 bites Left apex x 4 bites Performed By: #### 1 [id number] #### [facility] [address] [place] [address] PH Specimen 11 R Lat Mid Prost Normal [facility] Comment on above: Order Comment: left base x 3 bites Left lateral mid x 3 bites Left apex x 4 bites Performed By: #### 1 [id number] #### [facility] [address] [place] [address] PH Specimen 12 R Lat Apx Prost Normal [facility] Comment on above: Order Comment: left base x 3 bites Left lateral mid x 3 bites Left apex x 4 bites Performed By: #### 1 [id number] #### [facility] [address] [place] [address] PH Specimen 2 L Base Prostate Normal [facility] Comment on above: Order Comment: left base x 3 bites Left lateral mid x 3 bites Left apex x 4 bites Performed By: #### 1 [id number] #### [facility] [address] [place] [address] PH Specimen 3 L Lat Apx Prost Normal [facility] Comment on above: Order Comment: left base x 3 bites Left lateral mid x 3 bites Left apex x 4 bites Performed By: #### 1 [id number] #### [facility] [address] [place] [address] PH Specimen 4 L Lat Bse Prost Normal [facility] Comment on above: Order Comment: left base x 3 bites Left lateral mid x 3 bites Left apex x 4 bites Performed By: #### 1 [id number] #### [facility] [address] [place] [address] PH Specimen 5 L Lat Mid Prost Normal [facility] Comment on above: Order Comment: left base x 3 bites Left lateral mid x 3 bites Left apex x 4 bites Performed By: #### 1 [id number] #### [facility] [address] [place] [address] PH Specimen 6 L Mid Prostate Normal [facility] Comment on above: Order Comment: left base x 3 bites Left lateral mid x 3 bites Left apex x 4 bites Performed By: #### 1 [id number] #### [facility] [address] [place] [address] PH Specimen 7 R Apx Prostate Normal [facility] Comment on above: Order Comment: left base x 3 bites Left lateral mid x 3 bites Left apex x 4 bites Performed By: #### 1 [id number] #### [facility] [address] [place] [address] PH Specimen 8 R Base Prostate Normal [facility] Comment on above: Order Comment: left base x 3 bites Left lateral mid x 3 bites Left apex x 4 bites Performed By: #### 1 [id number] #### [facility] [address] [place] [address] PH Specimen 9 R Mid Prostate Normal [facility] Comment on above: Order Comment: left base x 3 bites Left lateral mid x 3 bites Left apex x 4 bites Performed By: #### 1 [id number] #### [facility] [address] [place] [address] PH Type of Service Technical Only Normal [facility] Comment on above: Order Comment: left base x 3 bites Left lateral mid x 3 bites Left apex x 4 bites Performed By: #### 1 [id number] #### [facility] [address] [place] [address] Patient Educationon 01-02-20 Patient Education Oncology Transrectal [...] near your rectum, especially while sitting. ? [place]-colored urine due to small amounts of blood in your urine. ? A burning feeling while urinating. ? Blood in your stool (feces) or bleeding from your rectum. ? Blood in your semen. Follow these instructions at home: Medicines ? Take uaoo-pqo-ozuvwlg and prescription medicines only as told by [...] provider. Document Revised: 05/10/2022 Document Reviewed: 05/10/2022 [employer] Patient Education ? 2022 [employer] Transrectal Ultrasound-Guided Prostate Biopsy A transrectal ultrasound-guided [...] including vitamins, herbs, eye drops, creams, and tlte-tlw-gsvhmfk medicines. ? Any problems you or family [...] as aspirin (more content not included)... Normal [facility] Urology Office/Clinic Noteon 01-02-2024 Urology Office/Clinic [...] of prostate cancer. S/p TRUS/bx 05/17/23 - Marne score 6 (3+3) in 2 cores each [...] Rufina Reina, [facility] [address] [place] [address] [phone] Additional Instructions: sched repeat TRUS/bx Patient Education Transrectal Ultrasound-Guided Prostate Biopsy, Care After Transrectal Ultrasound-Guided Prostate Biopsy IVesta, personally scribed for Dr. Vora on 01/02/2024 13:51:44. . Documentation recorded by the evansibjerry, Vesta Cortes, accurately reflects the services(s) I [...] Father. I (more content not included)... Normal [facility] Comment on above: Result Comment: Elec tronically Signed By: Rufina VORA MD\.br\Date and Time Signed: 01/02/24 13:53 EST\.br\Electronically Co-Signed By: Vesta Cortesbr\Date and Time Co-Signed: 01/02/24 13:52 EST Lab Reportson 12-01-2023 Lab Reports [id number] .00TIFF [facility] Ambulatory Visit Summaryon 0 06-06-2023 Ambulatory Visit Summary MATEO STEARNS :1960 Visit Date:06/06/2023 Ambulatory Visit Instructions Your Diagnosis Prostate cancer Sebaceous cyst Tests Performed Urnls Dip Stick Auto w/o Microscopy POC 39604 Your Care Team Attending Physician - Rufina [...] Reina Where: [facility] Patient Educationon 06-06-20 23 Patient Education [...] under a microscope. This is called the Marne score and the total score can range from 6?10, indicating how likely it is that the cancer will spread (metastasize) to other parts of the body. The higher the score, the greater the likelihood that the cancer will spread. ? Marne 6 or lower: This indicates that the [...] external be (more content not included)... Normal [facility] Urology Office/Clinic Noteon 06-06-2023 Urology Office/Clinic [...] months [facility] [address], [place] [address]- [phone] Additional Instructions: PSA and ANNE-MARIE Patient Education Prostate Cancer I, Vesta Corets, personally scribed for Dr. Vora on 06/06/2023 [...] Cigarettes, 02/07/2023 (more content not included)... Normal [facility] Comment on above: Result Comment: Elec tronically Signed By: Rufina VORA MD\.br\Date and Time Signed: 06/06/23 11:52 EDT\.br\Electronically Co-Signed By: Vesta Cortes\.br\Date and Time Co-Signed: 06/06/23 11:47 EDT PSA, FREE AND TOTAL RATIOon 04-13-2023 % Free PSA 12.1 % Normal [facility] Comment [...] men. Performed By: #### H ISTGAL #### [facility] [address] [place] [address] Dr. James Crowley Prostate specific Ag [Mass/Vol] 3.4 ng/mL Normal 0.0-4.0 [facility] Comment on above: Result Comment: Rosa Elena edwards ECLIA methodology. . According to the [employer], Serum PSA should decrease and [...] disease. Performed By: #### H ISTGAL #### [facility] [address] [place] [address] Dr. James Crowley PSA, Free 0.41 ng/mL Normal N/A [facility] Comment on above: Result Comment: Rosa Elena DESHPANDE methodology. Performed By: #### H ISTGAL #### [facility] [address] [place] [address] Dr. James Crowley CBC AUTO DIFFon 04-08-2023 BASO # 0.1 103/ul Normal 0.0-0.1 [facility] Comment on above: Performed By: #### C BC #### [facility] [address] [place] [address] Dr. James Crowley Basophils/100 WBC (Bld) 0.5 % Normal 0.2-2.0 [facility] Comment on above: Performed By: #### C BC #### [facility] [address] [place] [address] Dr. James Crowley EO # 0.1 103/ul Normal 0.0-0.7 [facility] Comment on above: Performed By: #### C BC #### [facility] [address] [place] [address] Dr. James Crowley Eosinophils/100 WBC (Bld) 1.3 % Normal 0.9-7.0 [facility] Comment on above: Performed By: #### C BC #### [facility] [address] [place] [address] Dr. James Crowley Erythrocyte distribution width (RBC) [Ratio] 13.5 % Normal 11.0-15.0 [facility] Comment on above: Performed By: #### C BC #### [facility] [address] [place] [address] Dr. James Crowley Hematocrit (Bld) [Volume fraction] 48.4 % Normal 42.0-54.0 [facility] Comment on above: Performed By: #### C BC #### [facility] [address] [place] [address] Dr. James Crowley Hemoglobin (Bld) [Mass/Vol] 15.6 g/dL Normal 14.0-18.0 [facility] Comment on above: Performed By: #### C BC #### [facility] [address] [place] [address] Dr. James Crowley IG # 0.08 10e3/ul Critically high 0.00-0.03 [facility] Comment on above: Performed By: #### C BC #### [facility] [address] [place] [address] Dr. James Crowley IG % 0.8 % Critically high 0.0-0.5 [facility] Comment on above: Performed By: #### C BC #### [facility] [address] [place] [address] Dr. James Crowley LYMPH # 3.1 103/ul Normal 1.2-3.8 [facility] Comment on above: Performed By: #### C BC #### [facility] [address] [place] [address] Dr. James Crowley Lymphocytes/100 WBC (Bld) 29.8 % Normal 20.5-60.0 [facility] Comment on above: Performed By: #### C BC #### [facility] [address] [place] [address] Dr. James Crowley MANUAL DIFF REQ NO Normal [facility] Comment on above: Performed By: #### C BC #### [facility] [address] [place] [address] Dr. James Crowley MCH (RBC) [Entitic mass] 29.3 pg Normal 25.9-34.0 [facility] Comment on above: Performed By: #### C BC #### [facility] [address] [place] [address] Dr. James Crowley MCHC (RBC) [Mass/Vol] 32.2 g/dL Normal 29.9-35.2 [facility] Comment on above: Performed By: #### C BC #### [facility] [address] [place] [address] Dr. James Crowley MCV (RBC) [Entitic vol] 90.8 fL Normal 80.0-94.0 [facility] Comment on above: Performed By: #### C BC #### [facility] [address] [place] [address] Dr. James Crowley MONO # 0.6 103/ul Normal 0.3-0.8 [facility] Comment on above: Performed By: #### C BC #### [facility] [address] [place] [address] Dr. James Crowley Monocytes/100 WBC (Bld) 5.9 % Normal 1.7-12.0 [facility] Comment on above: Performed By: #### C BC #### [facility] [address] [place] [address] Dr. James Crowley NEUT # 6.4 103/ul Normal 1.4-6.5 [facility] Comment on above: Performed By: #### C BC #### [facility] [address] [place] [address] Dr. James Crowley Neutrophils/100 WBC (Bld) 61.7 % Normal 43.0-75.0 [facility] Comment on above: Performed By: #### C BC #### [facility] [address] [place] [address] Dr. James Crowley Platelet mean volume (Bld) [Entitic vol] 9.1 fL Critically low 9.5-13.5 [facility] Comment on above: Performed By: #### C BC #### [facility] [address] [place] [address] Dr. James Crowley PLT 320 103/ul Normal 150-450 [facility] Comment on above: Performed By: #### C BC #### [facility] [address] [place] [address] Dr. James Crowley RBC 5.33 106/ul Normal 4.70-6.10 [facility] Comment on above: Performed By: #### C BC #### [facility] [address] [place] [address] Dr. James Crowley WBC 10.4 103/ul Normal 4.0-11.0 [facility] Comment on above: Performed By: #### C BC #### [facility] [address] [place] [address] CHEST W CONon [...] MA Date: 2023-04-08 10:41 Normal [facility] LIPID PROFILEon 04-08-2023 CHOL-HDL RATIO NORM SEE BELOW Normal [facility] Comment on above: Result Comment: 3.3 - 4.4 LOW RISK 4.4 - 7.1 AVERAGE RISK 7.1 - 11.0 MODERATE RISK >11.0 HIGH RISK Performed By: #### U NEO, LIPID #### [facility] [address] [place], [place] [address] Dr. James Crowley Cholesterol [Mass/Vol] 204 mg/dL Critically high <=200 [facility] Comment on above: Performed By: #### U NEO, LIPID #### [facility] [address] [place], [place] [address] Dr. James Crowley Cholesterol in HDL [Mass/Vol] 55 mg/dL Normal 40-60 [facility] Comment on above: Performed By: #### U NEO, LIPID #### [facility] [address] [place] [address] [address] James Crowley Cholesterol in LDL [Mass/Vol] 115.2 mg/dL Normal [facility] Comment on above: Performed By: #### U NEO, LIPID #### [facility] [address] [place] [address] [address] James Crowley Cholesterol.total/C holesterol in HDL [Mass ratio] 3.7 {ratio} Normal [facility] Comment on above: Performed By: #### U NEO, LIPID #### [facility] [address] [address] [address] James Crowley HDL NORMAL > or = 60 mg/dl - LO W CARDIOVASCULAR RISK <40 mg/dl - HIGH CARDIOVASCULAR RISK Normal [facility] Comment on above: Performed By: #### U NEO, LIPID #### [facility] [address] [address] [address] James Crowley LDL CALC NORMAL SEE BELOW Normal [facility] Comment on above: Result Comment: <100 mg/dl OPTIMAL 100 - 129 mg/dl NEAR OR ABOVE OPTIMAL 130 - 159 mg/dl BORDERLINE HIGH 160 - 189 mg/dl HIGH >190 mg/dl VERY HIGH Performed By: #### U NEO, LIPID #### [facility] [address] [address] [address] James Crowley Triglyceride [Mass/Vol] 169 mg/dL Critically high <=150 [facility] Comment on above: Performed By: #### U NEO, LIPID #### [facility] [address] [address] [address] James Crowley VLDL CALC 33.8 mg/dL Normal [facility] Comment on above: Performed By: #### U NEO, LIPID #### [facility] [address] [address] [address] James Crowley PROF 14(COMP METB)on 023 Albumin [Mass/Vol] 3.7 g/dL Normal 3.4-5.0 [facility] Comment on above: Performed By: #### U NEO, LIPID #### [facility] [address] [address] [address] James Crowley Albumin/Globulin [Mass ratio] 0.9 {ratio} Normal [facility] Comment on above: Performed By: #### U NEO, LIPID #### [facility] [address] [address] [address] James Crowley ALP [Catalytic activity/Vol] 86 U/L Normal 46-116 [facility] Comment on above: Performed By: #### U NEO, LIPID #### [facility] [address] [address] [address] James Crowley ALT [Catalytic activity/Vol] 33 U/L Normal 16-63 [facility] Comment on above: Performed By: #### U NOE, LIPID #### [facility] [address] [address] [address] James Crowley Anion gap [Moles/Vol] 14.8 mmol/L Normal [facility] Comment on above: Performed By: #### U NEO, LIPID #### [facility] [address] [address] [address] James Crowley AST [Catalytic activity/Vol] 16 U/L Normal 15-37 [facility] Comment on above: Performed By: #### U NEO, LIPID #### [facility] [address] [address] [address] James Crowley Bilirubin [Mass/Vol] 0.7 mg/dL Normal 0.2-1.0 [facility] Comment on above: Performed By: #### U NEO, LIPID #### [facility] [address] [address] [address] James Crowley Calcium [Mass/Vol] 9.1 mg/dL Normal 8.5-10.1 [facility] Comment on above: Performed By: #### U NEO, LIPID #### [facility] [address] [address] [address] James Crowley Chloride [Moles/Vol] 107 mmol/L Normal 98-107 [facility] Comment on above: Performed By: #### U NEO, LIPID #### [facility] [address] [address] [address] James Crowley CO2 [Moles/Vol] 28.0 mmol/L Normal 21.0-32.0 [facility] Comment on above: Performed By: #### U NEO, LIPID #### [facility] [address] [address] [address] James Crowley Creatinine [Mass/Vol] 1.10 mg/dL Normal 0.70-1.30 [facility] Comment on above: Performed By: #### U NEO, LIPID #### [facility] [address] [address] [address] James Crowley EGFR-AF MACEDONIAN >60 Normal >=60 [facility] Comment on above: Performed By: #### U NEO, LIPID #### [facility] [address] [address] [address] James Crowley EGFR-NON AF MACEDONIAN >60 Normal >=60 [facility] Comment on above: Performed By: #### U NEO, LIPID #### [facility] [address] [address] [address] James Crowley Globulin (S) [Mass/Vol] 3.9 g/dL Normal [facility] Comment on above: Performed By: #### U NEO, LIPID #### [facility] [address] [address] [address] James Crowley Glucose [Mass/Vol] 98 mg/dL Normal 74-106 [facility] Comment on above: Performed By: #### U NEO, LIPID #### [facility] [address] [address] [address] James Crowley Potassium [Moles/Vol] 3.8 mmol/L Normal 3.5-5.1 [facility] Comment on above: Performed By: #### U NEO, LIPID #### [facility] [address] [address] [address] James Crowley Protein [Mass/Vol] 7.6 g/dL Normal 6.4-8.2 [facility] Comment on above: Performed By: #### U NEO, LIPID #### [facility] [address] [address] [address] James Crowley Sodium [Moles/Vol] 146 mmol/L Critically high 136-145 [facility] Comment on above: Performed By: #### U NEO, LIPID #### [facility] [address] [address] [address] James Crowley Urea nitrogen [Mass/Vol] 18.0 mg/dL Normal 7.0-18.0 [facility] Comment on above: Performed By: #### U NEO, LIPID #### [facility] [address] [address] [address] James Crowley Urea nitrogen/Creatinine [Mass ratio] 16.4 mg/mg Normal [facility] Comment on above: Performed By: #### U NEO, LIPID #### [facility] [address] [place] [address] Dr. James Crowley URIC ACID SERUMon 04-08-2023 Urate [Mass/Vol] 6.7 mg/dL Normal 3.5-7.2 [facility] Comment on above: Performed By: #### U NEO, LIPID #### [facility] [address] [place] [address] CHEST WO CONon [...] LEONOR MA Date: 2023-01-04 10:52 Normal [facility] CT CHEST WO CONon 10-07-2022 CT [...] LEONOR MA Date: 2022-10-07 16:05 Normal [facility] ACID FAST SMEAR AND CXon Acid Fast Culture Negative Normal [facility] Comment on above: Result Comment: No a tomi fast bacilli isolated after 6 weeks. Performed By: #### U NEO, LIPID #### [facility] [address] [address] [address] James Crowley Acid Fast Smear Negative Normal [facility] Comment on above: Performed By: #### U NEO, LIPID #### [facility] [address] [address] [address] James Crowley [employer] Specimen Processing Concentration Normal [facility] Comment on above: Performed By: #### U NEO, LIPID #### [facility] [address] [address] [address] James Crowley FUNGAL AB QUANTITAIVE DOUBLE IMMUNODIFFUon 08-22-2022 Aspergillus flavus Negative Normal Neg:<1:1 [facility] Comment on above: Performed By: #### F UNGUYI #### [facility] [address] [address] [address] James Crowley Aspergillus fumigatus Negative Normal Neg:<1:1 [facility] Comment on above: Performed By: #### F UNGUYI #### [facility] [address] [address] [address] James Crowley Aspergillus niger Negative Normal Neg:<1:1 [facility] Comment on above: Performed By: #### F UNGUYI #### [facility] [address] [address] [address] James Crowley Blastomyces Negative Normal Neg:<1:1 [facility] Comment on above: Performed By: #### F UNGUYI #### [facility] [address] [address] [address] James Crowley COXSACKIE B VIRUS ANTIBODIES on 08-21-2022 Coxs[place]ie B-1 Ab Negative Normal Neg:<1:8 [facility] Comment on above: Performed By: #### C OXSBV #### [facility] [address] [address] [address] James Crowley Coxsackie B-2 Ab Negative Normal Neg:<1:8 [facility] Comment on above: Performed By: #### C OXSBV #### [facility] [address] [address] [address] James Crowley coxsarembertoie B-3 Ab Negative Normal Neg:<1:8 [facility] Comment on above: Performed By: #### C OXSBV #### [facility] [address] [address] [address] James Crowley Coxsackie B-4 Ab Negative Normal Neg:<1:8 [facility] Comment on above: Performed By: #### C OXSBV #### [facility] [address] [place] [address] Dr. James Crowley Coxsarembertoie B-5 Ab Negative Normal Neg:<1:8 [facility] Comment on above: Performed By: #### C OXSBV #### [facility] [address] [place] [address] Dr. James Altamiranosarembertoie B-6 Ab Negative Normal Neg:<1:8 [facility] Comment on above: Performed By: #### C OXSBV #### [facility] [address] [place] [address] Dr. James Crowley HISTOPLASMA CAP AB QUANT DID on 08-21-2022 Histoplasma Mycelial CF Ab. Negative Normal Neg:<1:2 [facility] Comment on above: Performed By: #### H ISTGAL #### [facility] [address] [place] [address] Dr. James Crowley Histoplasma Yeast CF Ab Negative Normal Neg:<1:2 [facility] Comment on above: Performed By: #### H ISTGAL #### [facility] [address] [place] [address] Dr. James Crowley COXSACKIE A VIRUS AB IGMon 0 08-20-2022 [place] A16 IgM Negative Normal Neg:<1:10 [facility] Comment on above: Performed By: #### C OXSIGM #### [facility] [address] [place] [address] Dr. James Altamiranosaerinn A24 IgM Negative Normal Neg:<1:10 [facility] Comment on above: Performed By: #### C OXSIGM #### [facility] [address] [place] [address] Dr. James Crowley Coxsaerinn A7 IgM Negative Normal Neg:<1:10 [facility] Comment on above: Performed By: #### C OXSIGM #### [facility] [address] [place] [address] Dr. James Crowley Coxsaerinn A9 IgM Negative Normal Neg:<1:10 [facility] Comment on above: Performed By: #### C OXSIGM #### [facility] [address] [place] [address] Dr. James Crowley HISTOPLASMA GALACTOMANNAN AG URINEon 08-20-2022 Histoplasma Gal'shwetha Ag <0.5 Normal <0.5 ng/mL [facility] Comment on above: Performed By: #### H ISTGAL #### [facility] [address] [place] [address] Dr. James Crowley QUANTIFERON TB GOLD PLUSon 0 08-20-2022 QuantiFERON Criteria Comment Normal [facility] Comment [...] test. Performed By: #### Q NTTB #### [facility] [address] [place] [address] Dr. James Crowley QuantiFERON Incubation Incubation performed. Normal [facility] Comment on above: Performed By: #### Q NTTB #### [facility] [address] [place] [address] Dr. James Crowley QuantiFERON Mitogen Value >10.00 Normal [facility] Comment on above: Performed By: #### Q NTTB #### [facility] [address] [place] [address] Dr. James Crowley QuantiFERON Nil Value 0.04 IU/mL Normal [facility] Comment on above: Performed By: #### Q NTTB #### [facility] [address] [place] [address] Dr. James Crowley QuantiFERON TB1 Ag Value 0.04 IU/mL Normal [facility] Comment on above: Performed By: #### Q NTTB #### [facility] [address] [place] [address] Dr. James Crowley QuantiFERON TB2 Ag Value 0.05 IU/mL Normal [facility] Comment on above: Performed By: #### Q NTTB #### [facility] [address] [place] [address] Dr. James Crowley QuantiFERON-TB Gold Plus Negative Normal Negative [facility] Comment on above: Result Comment: No r esponse to M tuberculosis antigens detected. Infection with M tuberculosis is unlikely, but high risk individuals should be considered for additional testing (ATS/IDSA/CDC Clinical Practice Guidelines, 2017). The reference range is an Antigen minus Nil result of <0.35 IU/mL. Chemiluminescence immunoassay methodology Performed By: #### Q NTTB #### [facility] [address] [place] [address] Dr. James Crowley CREATININEon 08-18-2022 Creatinine [Mass/Vol] 0.97 mg/dL Normal 0.70-1.30 [facility] Comment on above: Performed By: #### H ISTGAL #### [facility] [address] [place] [address] Dr. James Crowley EGFR-AF MACEDONIAN >60 Normal >=60 [facility] Comment on above: Performed By: #### H ISTGAL #### [facility] [address] [place] [address] Dr. James Crowley EGFR-NON AF MACEDONIAN >60 Normal >=60 [facility] Comment on above: Performed By: #### H ISTGAL #### [facility] [address] [place] [address] CHEST W CONon [...] LEONOR MA Date: 2022-08-18 10:27 Normal [facility] CULTURE SPUTUMon 08-18-2022 CULTURE SPUTUM Isolate 1 Haemophilus parainfluenzae Moderate growth of Normal [facility] Comment on above: Result Comment: Beta -Lactamase: Negative Performed By: #### H ISTGAL #### [facility] [address] [address] [address] James Crowley SPUTUM GRAM STAINon 08-18-20 22 COMMENTS Normal [facility] Comment on above: Performed By: #### H ISTGAL #### [facility] [address] [address] [address] James Crowley DIPHTHEROIDS Normal [facility] Comment on above: Performed By: #### H ISTGAL #### [facility] [address] [address] [address] James Crowley EPITHELIALS <25 Normal [facility] Comment on above: Performed By: #### H ISTGAL #### [facility] [address] [address] [address] James Crowley FUNGAL ELEMENTS Normal [facility] Comment on above: Performed By: #### H ISTGAL #### [facility] [address] [address] [address] James Crowley GRAM NEG BACILLI Normal [facility] Comment on above: Performed By: #### H ISTGAL #### [facility] [address] [address] [address] James Crowley GRAM NEG DIPPLOCOCCI FEW Normal [facility] Comment on above: Performed By: #### H ISTGAL #### [facility] [address] [address] [address] James Crowley GRAM POS BACILLI Normal [facility] Comment on above: Performed By: #### H ISTGAL #### [facility] [address] [address] [address] James Crowley GRAM POSITIVE COCCI FEW Normal [facility] Comment on above: Performed By: #### H ISTGAL #### [facility] [address] [address] [address] James Crowley WBC (Bld) [#/Vol] 10*3/uL Normal [facility] Comment on above: Performed By: #### H ISTGAL #### [facility] [address] [address] [address] James Crowley XR RIBS RT PA [...] [place] CISNEROS Date: 2022-08-12 13:02 Normal [facility] Covid-19 PCR (CVDTB)on SARS-CoV-2 (COVID-19) RNA SOURAV+probe Ql (Unsp spec) Not detected Normal NOT DETECTED [facility] Comment on above: Result Comment: When [...] for this test is supported by the [place] of Health and Human Service's declaration that [...] longer be used). Performed By: #### [facility] #### [facility] [address] [place] [address] Dr. James Rey 03-24-2021 L - -------- Specimen: [id number] Received: 03/24/21 Status: BOSTON Mathews Num: [id number] Spec Type: Surgical Subm Dr: Bryan Quick MD Tissues: A Skin-Other than Cyst, tag, debridement or plastic repair (LT NASAL DORSUM) Procedures: HE Stain, Gross/Micro L4 -------- Patient Age/Sex Location Account Attending Physician -------- Mateo Stearns 60/M [place] [id number] Bryan Quick MD -------- SPEC NUM: [id number] RECD: 03/24/21 STATUS: BOSTON MATHEWS NUM: [id number] FRANCISCA: 03/24/21 [facility] DR: Bryan Quick MD ENTERED: 03/24/21 [facility] DR: MYAH TYPE: Surgical DEPT: S [...] microscopic findings support the above pathologic diagnosis. [id number] -------- -------- Specimen: [id number] Received: 03/24/21 Status: BOSTON Dinah Num: [id number] Spec Type: Surgical Subm Dr: Bryan Quick MD Tissues: A Skin-Other than Cyst, tag, debridement or plastic repair (LT NASAL DORSUM) Procedures: REINA Collier, Gross/Micro L4 -------- Patient: Mateo Stearns [id number] (Continued) -------- Signed (signature on file) Cindy Garcia MD 03/25/21 1824 [facility] Vital Signs Date Time Vital Sign Value Performing Clinician Facility 12-12-2024 09:53-0500 Body mass index (BMI) [Ratio] 22.69 kg/m2 MEI Dent MD Work Phone: [facility] 12-12-2024 09:53-0500 Body temperature 98.71 [degF] MEI Dent MD Work Phone: [facility] 12-12-2024 09:53-0500 Body weight 65.7 kg MEI Dent MD Work Phone: [facility] 12-12-2024 09:53-0500 Diastolic blood pressure 88 mm[Hg] MEI Dent MD Work Phone: [facility] 12-12-2024 09:53-0500 Heart rate 81 /min MEI Dent MD Work Phone: [facility] 12-12-2024 09:53-0500 Respiratory rate 18 /min MEI Dent MD Work Phone: [facility] 12-12-2024 09:53-0500 SaO2% (BldA) [Mass fraction] 90 % MEI Dent MD Work Phone: [facility] 12-12-2024 09:53-0500 Systolic blood pressure 131 mm[Hg] MEI Dent MD Work Phone: [facility] 11-02-2024 10:33-0500 Body temperature 98.4 [degF] MEI Dent MD Work Phone: [facility] 11-02-2024 10:33-0500 Diastolic blood pressure 82 mm[Hg] MEI Dent MD Work Phone: [facility] 11-02-2024 10:33-0500 Heart rate 100 /min MEI Dent MD Work Phone: [facility] 11-02-2024 10:33-0500 Respiratory rate 18 /min MEI Dent MD Work Phone: [facility] 11-02-2024 10:33-0500 SaO2% (BldA) [Mass fraction] 97 % MEI Dent MD Work Phone: [facility] 11-02-2024 10:33-0500 Systolic blood pressure 118 mm[Hg] MEI Dent MD Work Phone: [facility] 10-29-2024 10:28-0500 Body mass index (BMI) [Ratio] 23.38 kg/m2 MEI Dent MD Work Phone: [facility] 10-29-2024 10:28-0500 Body temperature 97.9 [degF] MEI Dent MD Work Phone: [facility] 10-29-2024 10:28-0500 Body weight 67.7 kg MEI Dent MD Work Phone: [facility] 10-29-2024 10:28-0500 Diastolic blood pressure 84 mm[Hg] MEI Dent MD Work Phone: [facility] 10-29-2024 10:28-0500 Heart rate 81 /min MEI Dent MD Work Phone: [facility] 10-29-2024 10:28-0500 Respiratory rate 18 /min MEI Dent MD Work Phone: [facility] 10-29-2024 10:28-0500 SaO2% (BldA) [Mass fraction] 95 % MEI Dent MD Work Phone: [facility] 10-29-2024 10:28-0500 Systolic blood pressure 126 mm[Hg] MEI Dent MD Work Phone: [facility] 10-22-2024 10:26-0500 Body mass index (BMI) [Ratio] 23.34 kg/m2 MEI Dent MD Work Phone: [facility] 10-22-2024 10:26-0500 Body temperature 97.11 [degF] MEI Dent MD Work Phone: [facility] 10-22-2024 10:26-0500 Body weight 67.6 kg MEI Dent MD Work Phone: [facility] 10-22-2024 10:26-0500 Diastolic blood pressure 81 mm[Hg] MEI Dent MD Work Phone: [facility] 10-22-2024 10:26-0500 Heart rate 71 /min MEI Dent MD Work Phone: [facility] 10-22-2024 10:26-0500 Respiratory rate 18 /min MEI Dent MD Work Phone: [facility] 10-22-2024 10:26-0500 SaO2% (BldA) [Mass fraction] 91 % MEI Dent MD Work Phone: [facility] 10-22-2024 10:26-0500 Systolic blood pressure 127 mm[Hg] MEI Dent MD Work Phone: [facility] 10-16-2024 10:59-0500 Body height 175.3 cm Kathie Sánchez [employer] Work Phone: [facility] 10-16-2024 10:59-0500 Body mass index (BMI) [Ratio] 22.21 kg/m2 Kathie Princess [employer] Work Phone: [facility] 10-16-2024 10:59-0500 Body temperature 98.01 [degF] Kathie Sánchez [employer] Work Phone: [facility] 10-16-2024 10:59-0500 Body weight 68.22 kg Kathie Princess [employer] Work Phone: [facility] 10-16-2024 10:59-0500 Diastolic blood pressure 78 mm[Hg] Kathie Princess [employer] Work Phone: [facility] 10-16-2024 10:59-0500 Heart rate 78 /min Kathie Princess [employer] Work Phone: [facility] 10-16-2024 10:59-0500 Respiratory rate 20 /min Kathie Hunterrach [employer] Work Phone: [facility] 10-16-2024 10:59-0500 SaO2% (BldA) [Mass fraction] 92 % Kathie Hunterrach [employer] Work Phone: [facility] 10-16-2024 10:59-0500 Systolic blood pressure 110 mm[Hg] Kathie Hunterrach [employer] Work Phone: [facility] 10-15-2024 10:45-0500 Body mass index (BMI) [Ratio] 23.45 kg/m2 MEI Dent MD Work Phone: [facility] 10-15-2024 10:45-0500 Body temperature 97.81 [degF] MEI Dent MD Work Phone: [facility] 10-15-2024 10:45-0500 Body weight 67.9 kg MEI Dent MD Work Phone: [facility] 10-15-2024 10:45-0500 Diastolic blood pressure 81 mm[Hg] MEI Dent MD Work Phone: [facility] 10-15-2024 10:45-0500 Heart rate 87 /min MEI Dent MD Work Phone: [facility] 10-15-2024 10:45-0500 Respiratory rate 16 /min MEI Dent MD Work Phone: [facility] 10-15-2024 10:45-0500 SaO2% (BldA) [Mass fraction] 95 % MEI Dnet MD Work Phone: [facility] 10-15-2024 10:45-0500 Systolic blood pressure 121 mm[Hg] MEI Dent MD Work Phone: [facility] 10-08-2024 10:34-0500 Body mass index (BMI) [Ratio] 23.69 kg/m2 MEI Dent MD Work Phone: [facility] 10-08-2024 10:34-0500 Body temperature 96.69 [degF] MEI Dent MD Work Phone: [facility] 10-08-2024 10:34-0500 Body weight 68.6 kg MEI Dent MD Work Phone: [facility] 10-08-2024 10:34-0500 Diastolic blood pressure 76 mm[Hg] MEI Dent MD Work Phone: [facility] 10-08-2024 10:34-0500 Heart rate 103 /min MEI Dent MD Work Phone: [facility] 10-08-2024 10:34-0500 Respiratory rate 18 /min MEI Dent MD Work Phone: [facility] 10-08-2024 10:34-0500 SaO2% (BldA) [Mass fraction] 90 % MEI Dent MD Work Phone: [facility] 10-08-2024 10:34-0500 Systolic blood pressure 165 mm[Hg] EMI Dent MD Work Phone: [facility] 10-01-2024 10:42-0500 Body mass index (BMI) [Ratio] 23.34 kg/m2 MEI Dent MD Work Phone: [facility] 10-01-2024 10:42-0500 Body temperature 97.9 [degF] MEI Dent MD Work Phone: [facility] 10-01-2024 10:42-0500 Body weight 67.6 kg MEI Dent MD Work Phone: [facility] 10-01-2024 10:42-0500 Diastolic blood pressure 83 mm[Hg] MEI Dent MD Work Phone: [facility] 10-01-2024 10:42-0500 Heart rate 99 /min MEI Dent MD Work Phone: [facility] 10-01-2024 10:42-0500 Respiratory rate 18 /min MEI Dent MD Work Phone: [facility] 10-01-2024 10:42-0500 SaO2% (BldA) [Mass fraction] 87 % MEI Dent MD Work Phone: [facility] Comment on above: Wearing mask, Normal for him with mask o n 10-01-2024 10:42-0500 Systolic blood pressure 129 mm[Hg] MEI Dent MD Work Phone: [facility] 09-25-2024 14:15-0400 Body mass index (BMI) [Ratio] 23.17 kg/m2 MEI Dent MD Work Phone: [facility] 09-25-2024 14:15-0400 Body weight 67.1 kg MEI Dent MD Work Phone: [facility] 09-13-2024 10:27-0400 Body height 175.3 cm Kathie Sánchez SUPERVISOR AIRPL[employer] FLIGHT ATTENDANT Work Phone: [facility] 09-13-2024 10:27-0400 Body mass index (BMI) [Ratio] 21.8 kg/m2 Kathiekrysta Sánchez SUPERVISOR [employer]PL[employer] FLIGHT ATTENDANT Work Phone: [facility] 09-13-2024 10:27-0400 Body temperature 98.4 [degF] Kathie Princess SUPERVISOR AIRPLANE FLIGHT ATTENDANT Work Phone: [facility] 09-13-2024 10:27-0400 Body weight 66.95 kg Kathie Princess SUPERVISOR AIRPLANE FLIGHT ATTENDANT Work Phone: [facility] 09-13-2024 10:27-0400 Heart rate 96 /min Kathie Princess SUPERVISOR AIRPL[employer] FLIGHT ATTENDANT Work Phone: [facility] 09-13-2024 10:27-0400 Respiratory rate 10 /min Kathie Princess SUPERVISOR AIRPL[employer] FLIGHT ATTENDANT Work Phone: [facility] 09-13-2024 10:27-0400 SaO2% (BldA) [Mass fraction] 97 % Kathie Princess SUPERVISOR AIRPL[employer] FLIGHT ATTENDANT Work Phone: [facility] 09-11-2024 13:33-0400 Body mass index (BMI) [Ratio] 23.51 kg/m2 MEI Dent MD Work Phone: [facility] 09-11-2024 13:33-0400 Body temperature 97.81 [degF] MEI Dent MD Work Phone: [facility] 09-11-2024 13:33-0400 Body weight 68.1 kg MEI Dent MD Work Phone: [facility] 09-11-2024 13:33-0400 Diastolic blood pressure 82 mm[Hg] MEI Dent MD Work Phone: [facility] 09-11-2024 13:33-0400 Heart rate 80 /min MEI Dent MD Work Phone: [facility] 09-11-2024 13:33-0400 Respiratory rate 18 /min MEI Dent MD Work Phone: [facility] 09-11-2024 13:33-0400 SaO2% (BldA) [Mass fraction] 94 % MEI Dent MD Work Phone: [facility] 09-11-2024 13:33-0400 Systolic blood pressure 146 mm[Hg] MEI Dent MD Work Phone: [facility] 07-12-2024 13:06-0400 Body mass index (BMI) [Ratio] 23.41 kg/m2 MEI Dent MD Work Phone: [facility] 07-12-2024 13:06-0400 Body temperature 98.1 [degF] MEI Dent MD Work Phone: [facility] 07-12-2024 13:06-0400 Body weight 67.8 kg MEI Detn MD Work Phone: [facility] 07-12-2024 13:06-0400 Diastolic blood pressure 83 mm[Hg] MEI Dent MD Work Phone: [facility] 07-12-2024 13:06-0400 Heart rate 95 /min MEI Dent MD Work Phone: [facility] 07-12-2024 13:06-0400 Respiratory rate 18 /min MEI Dent MD Work Phone: [facility] 07-12-2024 13:06-0400 SaO2% (BldA) [Mass fraction] 95 % MEI Dent MD Work Phone: [facility] 07-12-2024 13:06-0400 Systolic blood pressure 157 mm[Hg] MEI Dent MD Work Phone: [facility] 06-21-2024 13:13-0400 Body height 170.2 cm MEI Dent MD Work Phone: [facility] 06-21-2024 13:13-0400 Body mass index (BMI) [Ratio] 23.41 kg/m2 MEI Dent MD Work Phone: [facility] 06-21-2024 13:13-0400 Body temperature 97.5 [degF] MEI Dent MD Work Phone: [facility] 06-21-2024 13:13-0400 Body weight 67.8 kg MEI Dent MD Work Phone: [facility] 06-21-2024 13:13-0400 Diastolic blood pressure 75 mm[Hg] MEI Dent MD Work Phone: [facility] 06-21-2024 13:13-0400 Heart rate 86 /min MEI Dent MD Work Phone: [facility] 06-21-2024 13:13-0400 Respiratory rate 20 /min MEI Dent MD Work Phone: [facility] 06-21-2024 13:13-0400 SaO2% (BldA) [Mass fraction] 95 % MEI Dent MD Work Phone: [facility] 06-21-2024 13:13-0400 Systolic blood pressure 124 mm[Hg] MEI Dent MD Work Phone: [facility] 06-01-2024 13:13-0400 Body height 175.3 cm Amandeep Crisostomo MD Work Phone: [facility] 06-01-2024 13:13-0400 Body mass index (BMI) [Ratio] 22.14 kg/m2 Amandeep Crisostomo MD Work Phone: [facility] 06-01-2024 13:13-0400 Body weight 68 kg Amandeep Crisostomo MD Work Phone: [facility] 06-01-2024 13:13-0400 Diastolic blood pressure 81 mm[Hg] Amandeep Crisostomo MD Work Phone: [facility] 06-01-2024 13:13-0400 Heart rate 88 /min Amandeep Crisostomo MD Work Phone: [facility] 06-01-2024 13:13-0400 Systolic blood pressure 138 mm[Hg] Amandeep Crisostomo MD Work Phone: [facility] 05-21-2024 11:35-0400 Blood Pressure Location Rufina VORA [facility] 05-21-2024 11:35-0400 Body temperature 98.6 [degF] Rufina VORA [facility] 05-21-2024 11:35-0400 Diastolic blood pressure 84 mm[Hg] Rufina VORA [facility] 05-21-2024 11:35-0400 Heart rate 76 /min Rufina VORA [facility] 05-21-2024 11:35-0400 Respiratory rate 16 /min Rufina VORA [facility] 05-21-2024 11:35-0400 Systolic blood pressure 139 mm[Hg] Rufina VORA [facility] 06-06-2023 10:36-0400 Blood Pressure Location Rufina VORA [facility] 06-06-2023 10:36-0400 Diastolic blood pressure 76 mm[Hg] Rufina VORA [facility] 06-06-2023 10:36-0400 Heart rate 72 /min Rufina VORA [facility] 06-06-2023 10:36-0400 Respiratory rate 16 /min Rufina VORA [facility] 06-06-2023 10:36-0400 Systolic blood pressure 130 mm[Hg] Rufina VORA [facility] 02-07-2023 12:42-0400 Blood Pressure Location Rufina VORA [facility] 02-07-2023 12:42-0400 Diastolic blood pressure 77 mm[Hg] Rufina VORA [facility] 02-07-2023 12:42-0400 Heart rate 74 /min Rufina VORA [facility] 02-07-2023 12:42-0400 Systolic blood pressure 138 mm[Hg] Rufina VORA [facility] 05-17-2022 12:56-0400 Blood Pressure Location Rufina VORA [facility] 05-17-2022 12:56-0400 Diastolic blood pressure 87 mm[Hg] Rufina VORA [facility] 05-17-2022 12:56-0400 Heart rate 79 /min [facility] VOR[facility] 05-17-2022 12:56-0400 Respiratory rate 16 /min Rufina VORA [facility] 05-17-2022 12:56-0400 Systolic blood pressure 139 mm[Hg] Rufina VORA [facility] Encounters Encounter Date Encounter Type Care Provider Facility Start: 01-18-2025 ambulatory Rufina VORA Facili ty: [facility] Start: 01-11-2025 End: 01-11-2025 ambulatory Rufina VORA Facility:[facility] Start: 01-11-2025 End: 01-11-2025 Patient encounter procedure Rufina VORA [facility] Start: 01-02-2025 End: 01-02-2025 Bamboo flowsheet Karen Valdovinos DO Work Phone: [facility] Start: 01-02-2025 End: 01-02-2025 Bamboo flowsheet Karen Valdovinos DO Work Phone: [facility] Start: 01-02-2025 End: 01-02-2025 ambulatory KAREN VALDOVINOS Not Available Start: 12-12-2024 End: 12-12-2024 ambulatory Severo DENT Facility:[facility] Start: 12-12-2024 End: 12-12-2024 Patient encounter [...] 11-26-2024 End: 11-26-2024 Social Work [facility] Hematology/Oncology Start: 11-02-2024 End: 11-09-2024 Radiation Oncology Note Severo Dent MD Work Phone: Radiation Oncology Comment on above: Completion Note Start: 11-02-2024 End: 11-09-2024 Patient encounter procedure Severo Dent MD Work Phone: Radiation Oncology Comment on above: Malignant neoplasm o f prostate (HCC) (Primary Dx) Start: 11-02-2024 End: 11-02-2024 ambulatory Severo DENT Facility:[facility] Start: 11-01-2024 End: 11-01-2024 ambulatory Severo DENT Facility:[facility] Start: 10-31-2024 End: 10-31-2024 ambulatory Severo DENT Facility:[facility] Start: 10-30-2024 End: 10-30-2024 ambulatory Severo DENT Facility:[facility] Start: 10-29-2024 End: 10-29-2024 Patient encounter procedure Severo Dent MD Work Phone: Radiation Oncology Comment on above: Malignant neoplasm o f prostate (HCC) (Primary Dx) Start: 10-29-2024 End: 10-29-2024 ambulatory Severo DENT Facility:[facility] Start: 10-26-2024 End: 10-26-2024 Social Work [facility] Hematology/Oncology Start: 10-24-2024 End: 10-24-2024 ambulatory Severo DENT Facility:[facility] Start: 10-23-2024 End: 10-23-2024 ambulatory Severo DENT Facility:[facility] Start: 10-22-2024 End: 10-22-2024 Patient encounter procedure Severo Dent MD Work Phone: Radiation Oncology Comment on above: Malignant neoplasm o f prostate (HCC) (Primary Dx) Start: 10-22-2024 End: 10-22-2024 ambulatory Severo DENT Facility:[facility] Start: 10-21-2024 End: 10-21-2024 ambulatory Severo FIOREGÉNESIS Facility:[facility] Start: 10-19-2024 End: 10-19-2024 ambulatory Severo GOPAL DENT Facility:[facility] Start: 10-18-2024 End: 10-18-2024 ambulatory Severo FIOREGÉNESIS Facility:[facility] Start: 10-17-2024 End: 10-17-2024 ambulatory Severo FIOREGÉNESIS Facility:[facility] Start: 10-16-2024 End: 10-16-2024 Bamboo flowsheet [...] Start: 10-16-2024 End: 10-16-2024 ambulatory Severo DENT Facility:[facility] Start: 10-15-2024 End: 10-15-2024 Patient encounter procedure Severo Dent MD Work Phone: Radiation Oncology Comment on above: Malignant neoplasm o f prostate (HCC) (Primary Dx) Start: 10-15-2024 End: 10-15-2024 ambulatory Severo DENT Facility:[facility] Start: 10-12-2024 End: 10-12-2024 ambulatory Severo DENT Facility:[facility] Start: 10-11-2024 End: 10-11-2024 Clinisync Result Encounter Generic External Data Provider [facility] Unsolicited Start: 10-11-2024 End: 10-11-2024 Clinisync Result Encounter Generic External Data Provider [facility] External Department Unsolicited Start: 10-11-2024 End: 10-11-2024 Patient encounter procedure [facility] Work Phone: Radiation Oncology Comment on above: Malignant neoplasm o f prostate (HCC) Start: 10-11-2024 End: 10-11-2024 ambulatory Severo DENT Facility:[facility] Start: 10-10-2024 End: 10-10-2024 ambulatory Severo DENT Facility:[facility] Start: 10-09-2024 End: 10-09-2024 ambulatory Severo DENT Facility:[facility] Start: 10-08-2024 End: 10-08-2024 Patient encounter procedure Severo Dent MD Work Phone: Radiation Oncology Comment on above: Malignant neoplasm o f prostate (HCC) (Primary Dx) Start: 10-08-2024 End: 10-08-2024 ambulatory Severo DENT Facility:[facility] Start: 10-05-2024 End: 10-05-2024 ambulatory Severo DENT Facility:[facility] Start: 10-04-2024 End: 10-05-2024 ambulatory KATHIE SÁNCHEZ Facility:[facility] Start: 10-04-2024 End: 10-04-2024 Patient encounter procedure [facility] [place] Work Phone: Radiation Oncology Comment on above: Malignant neoplasm o f prostate (HCC) Start: 10-04-2024 End: 10-04-2024 Clinisync Result Encounter Generic External Data Provider [facility] External Department Unsolicited Start: 10-04-2024 End: 10-04-2024 Clinisync Result Encounter Generic External Data Provider [facility] External Department Unsolicited Start: 10-03-2024 End: 10-03-2024 ambulatory Severo DENT Facility:[facility] Start: 10-02-2024 End: 10-02-2024 ambulatory G GOPAL DENT Facility:[facility] Start: 10-01-2024 End: 10-01-2024 Patient encounter procedure Severo Dent MD Work Phone: Radiation Oncology Comment on above: Malignant neoplasm o f prostate (HCC) (Primary Dx) Start: 10-01-2024 End: 10-01-2024 ambulatory Severo GOPAL ENGGÉNESIS Facility:[facility] Start: 09-28-2024 End: 09-28-2024 ambulatory Severo FIOREGÉNESIS Facility:[facility] Start: 09-27-2024 End: 09-27-2024 ambulatory Severo FIOREGÉNESIS Facility:[facility] Start: 09-26-2024 End: 09-26-2024 ambulatory Severo FIOREGÉNESIS Facility:[facility] Start: 09-25-2024 End: 09-25-2024 Social Work [...] Start: 09-17-2024 End: 09-18-2024 ambulatory Severo DENT Facility:[facility] Start: 09-17-2024 End: 09-27-2024 Patient encounter procedure Severo Dent MD Work Phone: Radiation Oncology Comment on above: Malignant neoplasm o f prostate (HCC) (Primary Dx) Start: 09-14-2024 End: 09-14-2024 Telephone encounter Severo Dent MD Work Phone: Radiation Oncology Comment on above: Financial Questions Start: 09-13-2024 End: 09-13-2024 Bamboo flowsheet Kathie Hunterrach SUPERVISOR [employer]IGHT ATTENDANT Work Phone: [facility] Start: 09-13-2024 End: 09-13-2024 Bamboo flowsheet Kathie Richkashmirrach SUPERVISOR [employer] FLIGHT ATTENDANT Work Phone: [facility] Start: 09-13-2024 End: 09-13-2024 Office outpatient visit 15 minutes Kathie Sánchez SUPERVISOR [employer]PL[employer] FLIGHT ATTENDANT Work Phone: [facility] Comment on [...] Start: 07-12-2024 End: 07-12-2024 ambulatory Severo DENT Facility:[facility] Start: 07-12-2024 End: 07-12-2024 Patient encounter procedure Severo Dent MD Work Phone: Radiation Oncology Comment on above: Malignant neoplasm o f prostate (HCC) (Primary Dx) Start: 06-21-2024 End: 06-21-2024 ambulatory RUFINA VORA Facility:[facility] Start: 06-21-2024 End: 06-21-2024 Patient encounter procedure G Gopal Dent MD Work Phone: Radiation Oncology Comment on above: Malignant neoplasm o f prostate (HCC) (Primary Dx) Start: 06-01-2024 End: 06-01-2024 ambulatory Amandeep Crisostomo MD Work Phone: Urology Start: 06-01-2024 End: 06-01-2024 Patient encounter procedure Amandeep Crisostomo MD Work Phone: Urology Comment on above: Prostate cancer (HCC ) (Primary Dx) Start: 05-21-2024 End: 05-21-2024 ambulatory Rufina VORA Facility:[facility] Start: 05-21-2024 End: 05-21-2024 Patient encounter procedure Rufina VORA [facility] Start: 05-01-2024 End: 05-01-2024 ambulatory Rufina VORA Facility:[facility] Start: 05-01-2024 End: 05-01-2024 Patient encounter procedure Rufina VORA [facility] Start: 02-28-2024 Patient encounter procedure Generic Provider [facility] Start: 02-28-2024 End: 02-28-2024 ambulatory KATHIE RINCONSUKHWINDER Not Available Start: 01-05-2024 Clinisync Result Encounter Generic External Data Provider [facility] External Department Unsolicited Start: 01-05-2024 Clinisync Result Encounter Generic External Data Provider [facility] External Department Unsolicited Start: 01-02-2024 End: 01-02-2024 ambulatory Rufina VORA Facility:[facility] Start: 07-22-2023 ambulatory Rufina VORA Facili ty:[facility] Start: 06-06-2023 End: 06-06-2023 ambulatory Rufina VORA Facility:[facility] Start: 06-06-2023 End: 06-06-2023 Patient encounter procedure Rufina VORA [facility] Start: 05-17-2023 End: 05-17-2023 Patient encounter procedure Rufina VORA [facility] Start: 04-12-2023 End: 04-13-2023 ambulatory PROMISE SÁNCHEZ Facility:[facility] Start: 04-08-2023 End: 04-09-2023 ambulatory PROMISE SÁNCHEZ Facility:[facility] Start: 02-07-2023 End: 02-07-2023 Patient encounter procedure Rufina VORA [facility] Start: 01-04-2023 End: 01-05-2023 ambulatory PROMISE 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 Facility:[facility] Start: 08-12-2022 End: 08-12-[address] ELSA RAE . Facility:[facility] Start: 07-20-2022 End: 08-11-2022 Pre-admission assessment Rufina VORA [facility] Start: 05-17-2022 End: 06-16-2022 Pre-admission assessment Rufina VORA [facility] Start: 05-17-2022 End: 05-17-2022 Patient encounter procedure Rufina VORA [facility] Start: 05-03-2022 End: 05-03-2022 ambulatory ROBERTO SAMSA . Facility:[facility] Start: 03-24-2021 End: 03-24-2021 Departed Referred Bryan Quick Work Phone: [facility] [place] Procedures Date Procedure Procedure Detail Performing Clinician Start: 01-02-2025 Oph bmtry prtl coher intrfrmtry io lens pwr erna Karen Valdovinos DO Work Phone: Start: 01-02-2025 End: 01-02-2025 [facility] medical xm&eval compre new pt 1/> vst [...] Comment on above: Performed By: #### P [facility] #### [facility] [address] [place] [address] Dr. James Crowley Start: 10-19-2022 Colonoscopy Generic Pr ovider Colonoscopy Rufina VORA Procedure on foot Rufina LEON Repair of hip Rufina VORA Comment on above: Both hips Both hips Transrectal needle biopsy of prostate Rufina VORA Plan of Treatment Date Care Activity Detail Author Start: 10-19-2032 Screening for malign ant neoplasm of colon [facility] Start: 03-11-2031 Urine microalbumin profile DTaP,Tdap,Td Vaccine (2 - Td or Tdap) [facility] Start: 12-05-2029 Prostate specific antigen measurement Prostate Cancer Screening Discussion [facility] Start: 09-07-2029 Prostate specific antigen measurement Prostate Cancer Screening Discussion [facility] Start: 06-12-2025 End: 06-12-2025 ambulatory 06/12/2025 11:00 AM EDT Visit (SP) Office Hematology/Oncology [address] [place] [address] Cat Baker APRN.STAFF RADIOGRAPHER [address] [place] [address] survivorship Hematology/Oncology Comment on above: survivorship Start: 06-12-2025 End: 06-12-2025 Patient encounter procedure 06/12/2025 10:30 AM EDT Office Visit Radiation Oncology [address] [place] [address] Severo Dent MD [address] [place] [address] 6 month Follow up Radiation Oncology Comment on above: 6 month Follow up Start: 06-11-2025 End: 09-10-2025 Prostate specific Ag [Mass/volume] in Serum or Plasma PROSTATE-SPECIFIC ANTIGEN DIAGNOSTIC Lab Routine Malignant neoplasm of prostate (HCC) Expected: 06/11/2025 (Approximate), Expires: 09/10/2025 [facility] Work Phone: Comment on above: Expected: 06/11/2025 (Approximate), Expires: 09/10/2025 Start: 02-27-2025 Medicare Annual Well ness (AWV) Medicare Annual Wellness (AWV) [facility] Start: 02-27-2025 Pneumococcal Vaccine : 65+ Years (1 of 2 - PCV) Pneumococcal Vaccine: 65+ Years (1 of 2 - PCV) [facility] Comment on above: Postponed from 07/21 (Patient Refused) Start: 01-08-2025 End: 01-08-2025 Patient encounter procedure 01/08/2025 9:00 AM EST Office Visit [facility] [address] [place] [address] Kathie Sánchez, DONALD [address] [place] [address] [facility] Start: 01-02-2025 End: 01-02-2025 Patient encounter procedure [facility] Comment on above: Arrived Start: 12-17-2024 End: 12-17-2024 Patient encounter procedure 12/17/2024 9:40 AM EST Office Visit [facility] [address] [place] [address] Kathie Sánchez, SUPERVISOR [employer]PL[employer] FLIGHT ATTENDANT [address] [place] [phone] [facility] Start: 12-12-2024 End: 12-12-2024 Patient encounter procedure 12/12/2024 10:00 AM EST Office Visit Radiation Oncology [address] [place] [address] [place] [address] Severo Dent MD [address] [place] [address] 3-4 week follow up Radiation Oncology Comment on above: 3-4 week follow up Start: 11-30-2024 End: 11-30-2024 Patient encounter procedure Radiation Oncology Comment on above: 3-4 week follow up Start: 11-28-2024 Advance Directive Discussion Advance Directive Discussion [facility] Start: 11-27-2024 End: 02-26-2025 Prostate specific Ag [Mass/volume] in Serum or Plasma PROSTATE-SPECIFIC ANTIGEN DIAGNOSTIC Lab Routine Malignant neoplasm of prostate (HCC) Expected: 11/27/2024, Expires: 02/26/2025 [facility] Work Phone: Comment on above: Expected: 11/27/2024 , Expires: 02/26/2025 Start: 11-23-2024 End: 11-23-2024 Patient encounter procedure 11/23/2024 10:00 AM EST Office Visit [facility] [address] [place] [address] labs [facility] Comment on above: labs Start: 11-02-2024 End: 11-02-2024 Patient encounter procedure 11/02/2024 10:15 AM EST Appointment Radiation Oncology [address] [place] [address] Prostate Radiation Oncology Comment on above: Prostate Start: 11-01-2024 End: 11-01-2024 Patient encounter procedure Radiation Oncology Comment on above: Prostate FINAL OTV Fx Start: 10-31-2024 End: 10-31-2024 Patient encounter procedure 10/31/2024 10:15 AM EST Appointment Radiation Oncology [address] [place] [address] Prostate Radiation Oncology Comment on above: Prostate Start: 10-30-2024 End: 10-30-2024 Patient encounter procedure 10/30/2024 10:15 AM EST Appointment Radiation Oncology [address] [place] [address] Prostate Radiation Oncology Comment on above: Prostate Start: 10-29-2024 End: 10-29-2024 Patient encounter procedure Radiation Oncology Comment on above: Prostate Location: [facility] Start: 10-24-2024 End: 10-24-2024 Patient encounter procedure 10/24/2024 10:15 AM EST Appointment Radiation Oncology [address] [place] [address] Prostate Radiation Oncology Comment on above: Prostate Start: 10-23-2024 End: 10-23-2024 Patient encounter procedure 10/23/2024 10:15 AM EST Appointment Radiation Oncology [address] [place] [address] Prostate Radiation Oncology Comment on above: Prostate Start: 10-22-2024 End: 10-22-2024 Patient encounter procedure Radiation Oncology Comment on above: Prostate Location: [facility] Start: 10-21-2024 End: 10-21-2024 Patient encounter procedure 10/21/2024 10:15 AM EST Appointment Radiation Oncology [address] [place] [address] Prostate Radiation Oncology Comment on above: Prostate Start: 10-19-2024 End: 10-19-2024 Patient encounter procedure 10/19/2024 10:15 AM EST Appointment Radiation Oncology [address] [place] [address] Prostate Radiation Oncology Comment on above: Prostate Start: 10-18-2024 End: 10-18-2024 Patient encounter procedure 10/18/2024 10:15 AM EST Appointment Radiation Oncology [address] [place] [address] Prostate Radiation Oncology Comment on above: Prostate Start: 10-17-2024 End: 10-17-2024 Patient encounter procedure 10/17/2024 10:15 AM EST Appointment Radiation Oncology [address] [place] [address] Prostate Radiation Oncology Comment on above: Prostate [...] 10:15 AM EST Appointment Radiation Oncology [address] [place] [address] Prostate Radiation Oncology Comment on above: Prostate Start: 10-11-2024 End: 01-10-2025 CBC W Auto Differential panel - Blood COMPLETE BLOOD COUNT AND DIFFERENTIAL Lab Routine Malignant neoplasm of prostate (HCC) Expected: 10/11/2024, Expires: 01/10/2025 [facility] Work Phone: Comment on above: Expected: 10/11/2024 , Expires: 01/10/2025 Start: 10-11-2024 End: 10-11-2024 Patient encounter procedure 10/11/2024 10:30 AM EST Appointment Radiation Oncology [address] [place] [address] Prostate Radiation Oncology Comment on above: Prostate Start: 10-10-2024 End: 10-10-2024 Patient encounter procedure 10/10/2024 10:30 AM EST Appointment Radiation Oncology [address] [place] [address] Prostate Radiation Oncology Comment on above: Prostate Start: 10-09-2024 End: 10-09-2024 Patient encounter procedure 10/09/2024 10:30 AM EST Appointment Radiation Oncology [address] [place] [address] Prostate Radiation Oncology Comment on above: Prostate Start: 10-08-2024 End: 10-08-2024 Patient encounter procedure Radiation Oncology Comment on above: Prostate Location: [facility] Start: 10-05-2024 End: 10-05-2024 Patient encounter procedure 10/05/2024 10:15 AM EST Appointment Radiation Oncology [address] [place] [address] Prostate Radiation Oncology Comment on above: Prostate Start: 10-04-2024 End: 10-04-2024 Patient encounter procedure 10/04/2024 2:15 PM EST Appointment Radiation Oncology [address] [place] [address] Prostate - appt in [place] before Radiation Oncology Comment on above: Prostate - appt in [place] before Start: 10-04-2024 End: 01-03-2025 CBC W Auto Differential panel - Blood COMPLETE BLOOD COUNT AND DIFFERENTIAL Lab Routine Malignant neoplasm of prostate (HCC) Expected: 10/04/2024, Expires: 01/03/2025 [facility] Work Phone: Comment on above: Expected: 10/04/2024 , Expires: 01/03/2025 Start: 10-04-2024 End: 10-04-2024 Patient encounter procedure 10/04/2024 10:15 AM EST Appointment Radiation Oncology [address] [place] [address] Prostate Radiation Oncology Comment on above: Prostate Start: 10-03-2024 End: 10-03-2024 Patient encounter procedure 10/03/2024 10:15 AM EST Appointment Radiation Oncology [address] [place] [address] Prostate Radiation Oncology Comment on above: Prostate Start: 10-02-2024 End: 10-02-2024 Patient encounter procedure 10/02/2024 10:15 AM EST Appointment Radiation Oncology [address] [place] [address] Prostate Radiation Oncology Comment on above: Prostate Start: 10-01-2024 End: 10-01-2024 Patient encounter procedure Radiation Oncology Comment on above: Prostate Location: [facility] Start: 09-28-2024 End: 09-28-2024 Patient encounter procedure 09/28/2024 2:45 PM EDT Appointment Radiation Oncology [address] [place] [address] Prostate Radiation Oncology Comment on above: Prostate Start: 09-27-2024 End: 09-27-2024 Patient encounter procedure 09/27/2024 2:45 PM EDT Appointment Radiation Oncology [address] [place] [address] Prostate Radiation Oncology Comment on above: Prostate Start: 09-26-2024 End: 09-26-2024 Patient encounter procedure 09/26/2024 11:30 AM EDT Appointment Radiation Oncology [address] [place] [address] Prostate Radiation Oncology Comment on above: Prostate Start: 09-25-2024 End: 09-25-2024 Patient encounter procedure Radiation Oncology Comment on above: NEW START PROSTATE Prostate - would lik e 10:10:45 Start: 09-21-2024 End: 12-21-2024 Prostate specific Ag [Mass/volume] in Serum or Plasma PROSTATE-SPECIFIC ANTIGEN DIAGNOSTIC Lab Routine Malignant neoplasm of prostate (HCC) Expected: 09/21/2024, Expires: 12/21/2024 [facility] Work Phone: Comment on above: Expected: 09/21/2024 , Expires: 12/21/2024 Start: 09-18-2024 End: 09-18-2024 Patient encounter procedure 09/18/2024 9:00 AM EDT Office [place] [address] Financial Questions for upcoming treatments Financial Clearance [...] disease), cervical Expected: 09/13/2024 (Approximate), Expires: 09/13/2025 [facility] Work Phone: Comment on above: Expected: 09/13/2024 (Approximate), Expires: 09/13/2025 Start: 09-13-2024 End: 09-13-2024 Patient encounter procedure [facility] Comment on above: Other thrombophilia (CMS/HCC); Chronic respiratory failure with hypoxia (CMS/HCC); Abdominal aortic aneurysm, without rupture, unspecified (CMS/HCC); Thoracic aortic aneurysm, without rupture, unspecified (CMS/HCC); Atherosclerosis of aorta (CMS/HCC) Start: 09-11-2024 End: 09-11-2024 Patient encounter procedure 09/11/2024 1:45 PM EDT Office Visit Radiation Oncology [address] [place] [address] [place] [address] Severo Dent MD [address] [place] [address] [place] [address] 2 month rv Radiation Oncology Comment on above: 2 month rv Start: 07-29-2024 Covid-19 Vaccine ( season) Covid-19 Vaccine ( season) [facility] Start: 07-29-2024 Influenza vaccination Influenza Vacc ine (#1) [facility] Start: 07-12-2024 End: 07-12-2024 Patient encounter procedure 07/12/2024 1:15 PM EDT Office Visit Radiation Oncology [address] [place] [address] Severo Dent MD [address] [place] [address] 3 week rv-Decipher results Radiation Oncology Comment on above: 3 week rv-Decipher r esults Start: 06-01-2024 End: 08-31-2024 Prostate specific Ag [Mass/volume] in Serum or Plasma PROSTATE-SPECIFIC ANTIGEN DIAGNOSTIC Lab Routine Prostate cancer (HCC) Expected: 06/01/2024, Expires: 08/31/2024 [facility] Work Phone: Comment on above: Expected: 06/01/2024 , Expires: 08/31/2024 Start: 11-28-2023 Advance Directive Discussion Advance Directive Discussion [facility] Start: 11-28-2023 Behavioral Health Screening Behavioral Health Screening [facility] Start: 07-29-2023 Covid-19 Vaccine () Covid-19 Vaccine () [facility] Start: 07-29-2023 Influenza vaccination Influenza Vacc ine (#1) [facility] Start: 2023 Pneumococcal Vaccine : 65+ Years (1 - PCV) Pneumococcal Vaccine: 65+ Years (1 - PCV) [facility] Start: 2018 RSV Vaccine (1 - 1-d ose 60+ series) RSV Vaccine (1 - 1-dose 60+ series) [facility] Start: 2013 Prostate specific antigen measurement Prostate Cancer Screening Discussion [facility] Start: 2008 Screening for malign ant neoplasm of lung Lung Cancer Screening [facility] Start: 2003 Diabetes Screening Diabetes Screenin g [facility] Start: 2003 Screening for malign ant neoplasm of colon [facility] Start: 1993 Lipid panel Lipid Screening [facility] Start: 1988 Zoledronic acid therapy Alpha- 1 Antitrypsin Deficiency Screening [facility] Start: 1976 Annual PCP Team Time Lock Expert sully Disease Visit Annual PCP Team Chronic Disease Visit [facility] Start: 1976 Anxiety Screening Anxiety Screening [facility] Start: 1976 Depression Screening Depression Scre ening [facility] Start: 1976 Hepatitis C screening Hepatitis C Sc lissett [facility] Start: 1976 HIV screening HIV Screening [facility] Start: 1976 Spirometry Spirometry [facility] Start: 1964 Pneumococcal Vaccine : 65+ (1 of 2 - PCV) Pneumococcal Vaccine: 65+ (1 of 2 - PCV) [facility] Start: 1958 Abdominal aortic aneurysm screening Abdominal Aortic Aneurysm Screening [facility] Start: 1958 Medicare Annual Well ness (AWV) Medicare Annual Wellness (AWV) [facility] Start: 1958 Screening for malign ant neoplasm of colon [facility] BLOOD CULTURE 1 BLOOD CULTURE 1 Lab Routine 01/05/2024 4:58 PM EST [facility] BLOOD CULTURE 2 BLOOD CULTURE 2 Lab Routine 01/05/2024 5:04 PM EST [facility] CT Guidance for radiation treatment of Unspecified body region CT SIM PLANNING RADIATION ONCOLOGY Radiology Routine Malignant neoplasm of prostate (HCC) Ordered: 09/17/2024 [facility] Work Phone: Comment on above: Ordered: 09/17/2024 End: 06-01-2025 Prostate specific Ag [Mass/volume] in Serum or Plasma PROSTATE-SPECIFIC ANTIGEN DIAGNOSTIC Lab Routine Prostate cancer (HCC) Every 6 months for 3 Occurrences starting 06/01/2024 until 06/01/2025 [facility] Comment on above: Every 6 months for 3 Occurrences starting 06/01/2024 until 06/01/2025 Immunizations Immunization Date Immunization Notes Care Provider Fa hayleyty 08-17-2024 Pneumococcal Conjuga te PCV 20 Kathie Sánchez SUPERVISOR [employer]PLANE FLIGHT ATTENDANT Work Phone: [facility] 08-17-2024 RSV, recombinant, protein subunit RSVpreF, adjuvant reconstitu, 120mcg/0.5mL, PF (Arexvy) Kathie Sánchez NP Work Phone: [facility] 09-17-2023 zoster vaccine recombinant Rufina VORA [facility] 07-04-2023 zoster vaccine recombinant Rufina VORA [facility] 09-25-2022 SARS-CoV-2 (COVID-19 ) [id number] Rufina VORA [facility] 05-26-2021 SARS-CoV-2 (COVID-19 ) mRNA BNT-162b2 vax Rufina VORA [facility] 05-05-2021 SARS-CoV-2 (COVID-19 ) mRNA BNT-162b2 vax Rufina VORA [facility] 03-11-2021 tetanus toxoid, redu liyah diphtheria toxoid, and acellular pertussis vaccine, adsorbed Rufinamichelle VORA [facility] Payers Date Payer Category Payer Unknown [facility] MEDICARE ADVANTAGE HMO [id number] 2023-Present [phone] [address] [place] [id number] [facility] [id number] 2022 Medicare [facility] MEDIC[facility] ADVANTAGE [facility] MEDIC[facility] ADV[facility] [id number] 2022-Present [address] [place] [id number] 2022 Medicare (Managed Care) [facility] ADVANTAGE Member Subscriber Plan / Payer (Effective 2022-Present) Name: Mateo Stearns Relation to Subscriber: Self Name: Mateo Stearns Payer ID: Not on file Group ID: [id number] Type: Not on file Address: [address] [id number] 2020 Medicaid [id number] 1959 Medicaid [id number] 1959 Medicare [id number] 1959 Unknown [id number] 1958 Unknown [id number] 2.16.840.1.853608.3.579.2. 593 1958 Unknown [id number] 2.16.840.1.982688.3.579.2. 593 1958 Unknown [id number] 2.16.840.1.451545.3.579.2. 593 1958 Unknown [id number] 2.16.840.1.493089.3.579.2. 593 1958 Unknown [id number] 2.16.840.1.633927.3.579.2. 593 1958 Unknown [id number] 2.16.840.1.301569.3.579.2. 593 1958 Unknown [id number] 2.16.840.1.661249.3.579.2. 593 1958 Unknown [id number] 2.16.840.1.408186.3.579.2. 593 1958 Unknown [id number] 2.16.840.1.368328.3.579.2. 727 1958 Unknown [id number] 2.16.840.1.353665.3.579.2. 727 1958 Unknown [id number] 2.16.840.1.135658.3.579.2. 727 1958 Unknown [id number] 2.16.840.1.619143.3.579.2. 727 1958 Unknown [id number] 2.16.840.1.505371.3.579.2. 727 1958 Unknown [id number] 2.16.840.1.999808.3.579.2. 9 1958 Unknown [id number] 2.16.840.1.352219.3.579.2. 9 1958 Unknown [id number] 2.16.840.1.583625.3.579.2. 9 1958 Unknown [id number] 2.16.840.1.860579.3.579.2. 1258 1958 Unknown [id number] 2.16.840.1.020523.3.579.2. 727 1958 Unknown [id number] 2.16.840.1.986715.3.579.2. 7 Self-pay Self Pay [id number] Social History Date Type Detail Facility Tobacco smoking stat [facility] Unknown if ever smoked [facility] Start: 1960 Sex Assigned At Male [facility] Start: 05-17-2022 End: 01-08-2025 Tobacco smoking status Ex-smoker (finding) [facility] Start: 11-13-2023 End: 02-28-2024 Sex Assigned At Male [facility] Tobacco smoking status Never [facility] Start: 11-28-1975 End: 11-28-2016 History of tobacco use Current smoker [facility] Start: 11-28-1975 End: 11-28-2016 History of tobacco use Cigarette Smoker [facility] Start: 11-13-2023 End: 02-28-2024 Cigarettes smoked current (pack per day) - Reported 2 [facility] Start: 11-13-2023 End: 01-02-2025 Alcohol intake Ex-drinker (finding) [facility] Start: 1960 Sex Assigned At Not on file [facility] Start: 05-16-2013 Tobacco smoking stat us NHIS Smokes tobacco daily [facility] Start: 05-16-2013 End: 09-11-2024 Tobacco use and exposure Smokeless tobacco non-user [facility] Start: 05-16-2013 Alcohol intake Current drinke r of alcohol (finding) [facility] Start: 06-21-2024 Alcohol Comment quit 2016 [facility] Within the last year , have you been afraid of your partner or ex-partner? No [facility] Do you belong to any clubs or organizations such as catholic groups, unions, fraternal or athletic groups, or [...] [facility] 05-[facility]23 Functional Status N/A [facility] 02-07-2023 Functional Status N/A [facility] 08-05-2022 N/A [facility] 06-11-2022 Functional Status N/A [facility] 05-17-2022 Functional Status N/A [facility] Clinical Notes 05-17-2022 to 01-02-2025 Karen Valdovinos DO - 01/02/2025 10:45 AM Severo Melo MD - 12/12/2024 10:00 AM Mona Eugene RN - 12/12/2024 9:56 AM Umu Gallagher LSW - 11/26/2024 1:08 PM ESTPatient Instructions [...] Medications (Ophthalmic Agents) Medication Sig Dispense Refill Wjxenqveajc-Hmxuhith-Mnwliqgho 1-0.5-0.075 % solution Administer 1 drop into [...] Do not crush, chew, or split.. HYDROcodone-acetaminophen (Adelanto) 5-325 MG tablet pantoprazole (ProtoNix) 40 MG [...] (Other) Past Medical History: Diagnosis Date Alcoholism (CMS/HCC) [...] of pneumothorax History of tobacco abuse Hyperlipidemia ([facility]) Lobular atelectasis Neuropathy Prostate cancer ([facility]) Right lower lobe lung mass Scrotal mass [...] @ 11:08 AM Additional Tests Keratometry K1 Elrod K2 Elrod Right 42.25 2 43.50 92 Left 42.00 [...] +1.50 Type: OTC Manifest Refraction Sphere Cylinder Elrod Right Left +3.50 -2.00 094 Final Rx [...] different lens options were explained including the sws-xh-aftbad fees for any upgrades. Intraocular lens (IOL) [...] OS - 02/25. documented in this encounter [facility] 12-12-2024 History of Present illness Narrative Radiation Oncology - Follow Up Note PATIENT NAME: Mateo Stearns PATIENT DIAGNOSIS: Prostate adenocarcinoma, initial PSA 4.46, biopsy Marne score 3 + 3 = 6 (grade [...] by: Severo Dent MD cc: Kathie Sánchez, STAFF RADIOGRAPHER ([facility]) [address] [place] [address] No referring provider defined for this encounter. AUA 2 Mona Melvin RN documented in this encounter [facility] 11-26-2024 Note HNO ID: [id number] Author: UMU NICOLAS LSW Service: ? Author Type: Shade Hanger Type: Progress Notes Filed: 11/26/2024 13:09 Note Text: SOCIAL WORK FOLLOW UP NOTE: [facility] Date of service:11/26/24 TOPICS ADDRESSED: community resources PLAN: Continue follow up as needed Assigned SW listed in Care Team tab: Yes SW completed and faxed October 2024 mileage reimbursement log to [facility]. SUSANNA Sotomayor [facility] 11-26-2024 History of Present illness Narrative SOCIAL WORK FOLLOW UP NOTE: [facility] Date of service:11/26/24 TOPICS ADDRESSED: community resources PLAN: Continue follow up as needed Assigned SW listed in Care Team tab: Yes SW completed and faxed October 2024 mileage reimbursement log to [facility]. SUSANNA Sotomayor documented in this encounter [facility] 11-02-2024 Note HNO ID: [id number] Author: Severo DENT MD Service: ? Author Type: Physician Type: Progress Notes Filed: 11/09/2024 11:44 Note Text: Radiation Oncology - On Treatment Review (OTR) Note PATIENT NAME: Mateo Stearns PATIENT DIAGNOSIS: Prostate adenocarcinoma, initial PSA 4.46, biopsy Marne score 3 + 3 = 6 (grade [...] well. Follow-up as scheduled. Severo Dent MD [facility] 11-02-2024 History of Present illness Narrative [...] Severo Dent MD documented in this encounter [facility] 11-02-2024 History of Present illness Narrative [facility] Radiation Oncology Department RADIATION ONCOLOGY - COMPLETION [...] Staff Physician Gopal Dent M.D. / KAYA :37 PM documented in this encounter [facility] 11-02-2024 Note HNO ID: [id number] Author: Severo DENT MD Service: ? Author Type: Physician Type: Progress Notes Filed: 11/08/2024 14:37 Note Text: [facility] Radiation Oncology Department RADIATION ONCOLOGY - COMPLETION NOTE PATIENT: MATEO STEARNS: 1960 DATES OF TREATMENT: 09/25/24 - 11/02/24 DIAGNOSIS: Prostate adenocarcinoma, initial PSA 4.46, biopsy Marne score 3 + 3 = 6 (grade [...] Staff Physician Gopal Dent M.D. / KAYA :37 PM Electronically Signed cc: PROMISE Gil Dr. [facility] 10-29-2024 Note HNO ID: [id number] Author: Severo DENT MD Service: ? Author Type: Physician Type: Progress Notes Filed: 10/29/2024 10:54 Note Text: Radiation Oncology - On Treatment Review (OTR) Note PATIENT NAME: Mateo Stearns PATIENT DIAGNOSIS: Prostate adenocarcinoma, initial PSA 4.46, biopsy Marne score 3 + 3 = 6 (grade [...] week. Follow-up care discussed. Severo Dent MD [facility] 10-29-2024 History of Present illness Narrative [...] Severo Dent MD documented in this encounter [facility] 10-26-2024 Note HNO ID: [id number] Author: UMU NICOLAS LSW Service: ? Author Type: Shade Hanger Type: Progress Notes Filed: 10/26/2024 10:44 Note Text: SOCIAL WORK FOLLOW UP NOTE: [facility] Date of service:10/26/24 TOPICS ADDRESSED: community resources PLAN: Continue follow up as needed Assigned SW listed in Care Team tab: Yes SW completed and faxed September 2024 mileage reimbursement log to [facility] SUSANNA Sotomayor [facility] 10-26-2024 History of Present illness Narrative SOCIAL WORK FOLLOW UP NOTE: [facility] Date of service:10/26/24 TOPICS ADDRESSED: community resources PLAN: Continue follow up as needed Assigned SW listed in Care Team tab: Yes SW completed and faxed September 2024 mileage reimbursement log to [facility] SUSANNA Sotomayor documented in this encounter [facility] 10-22-2024 Note HNO ID: [id number] Author: Severo DENT MD Service: ? Author Type: Physician Type: Progress Notes Filed: 10/22/2024 10:51 Note Text: Radiation Oncology - On Treatment Review (OTR) Note PATIENT NAME: Mateo Stearns PATIENT DIAGNOSIS: Prostate adenocarcinoma, initial PSA 4.46, biopsy Marne score 3 + 3 = 6 (grade [...] Continue radiation as outlined. Severo Dent MD [facility] 10-22-2024 History of Present illness Narrative [...] Severo Dent MD documented in this encounter [facility] 10-16-2024 History of Present illness Narrative Associated [...] and his symtpoms documented in this encounter [facility] 10-16-2024 Instructions Kathie Sánchez NP - 10/16/2024 11:00 AM EST Will give you some hand outs on stretching exercises Follow up in November 2024 for recheck documented in this encounter [facility] 10-15-2024 Note HNO ID: [id number] Author: Severo DENT MD Service: ? Author Type: Physician Type: Progress Notes Filed: 10/15/2024 15:22 Note Text: Radiation Oncology - On Treatment Review (OTR) Note PATIENT NAME: Mateo Stearns PATIENT DIAGNOSIS: Prostate adenocarcinoma, initial PSA 4.46, biopsy Marne score 3 + 3 = 6 (grade [...] recheck in 2 weeks. Severo Dent MD [facility] 10-15-2024 History of Present illness Narrative [...] Severo Dent MD documented in this encounter [facility] 10-11-2024 Nurse Note Mateo Stearns presents in office today for: Lab Draw only . Ordering Provider: Gopal Dent M.D. Test (s) ordered: CBC Method for obtaining blood: Phlebotomy was performed, accessing left antecubital vein. Needle removed intact. Dressing secured. Patient denies discomfort, dizziness, light-headedness or weakness and left the department without assist. Dayanna Call LPN [facility] 10-11-2024 Nurse Note Mateo Stearns presents in office today for: Lab Draw only . Ordering Provider: Gopal Dent M.D. Test (s) ordered: CBC Method for obtaining blood: Phlebotomy was performed, accessing left antecubital vein. Needle removed intact. Dressing secured. Patient denies discomfort, dizziness, light-headedness or weakness and left the department without assist. Dayanna Call LPN documented in this encounter [facility] 10-08-2024 Note HNO ID: [id number] Author: Severo DENT MD Service: ? Author [...] WBC recheck this week. Severo Dent MD [facility] 10-08-2024 History of Present illness Narrative Radiation Oncology - On Treatment Review (OTR) Note PATIENT NAME: Mateo Stearns PATIENT DIAGNOSIS: Prostate adenocarcinoma, initial PSA 4.46, biopsy Marne score 3 + 3 = 6 (grade [...] Severo Dent MD documented in this encounter [facility] 10-04-2024 Nurse Note Mateo Stearns presents in office today for: Lab Draw only . Ordering Provider: Gopal Dent M.D. Test (s) ordered: CBC Method for obtaining blood: Phlebotomy was performed, accessing left antecubital vein. Needle removed intact. Dressing secured. Patient denies discomfort, dizziness, light-headedness or weakness and left the department without assist. Dayanna Call LPN [facility] 10-04-2024 Nurse Note Mateo Stearns presents in office today for: Lab Draw only . Ordering Provider: Gopal Dent M.D. Test (s) ordered: CBC Method for obtaining blood: Phlebotomy was performed, accessing left antecubital vein. Needle removed intact. Dressing secured. Patient denies discomfort, dizziness, light-headedness or weakness and left the department without assist. Dayanna Call LPN documented in this encounter [facility] 10-01-2024 Note HNO ID: [id number] Author: Severo DENT MD Service: ? Author Type: Physician Type: Progress Notes Filed: 10/01/2024 10:51 Note Text: Radiation Oncology - On Treatment Review (OTR) Note PATIENT NAME: Mateo Stearns PATIENT DIAGNOSIS: Prostate adenocarcinoma, initial PSA 4.46, biopsy Marne score 3 + 3 = 6 (grade [...] Continue radiation as outlined. Severo Dent MD [facility] 10-01-2024 History of Present illness Narrative Radiation Oncology - On Treatment Review (OTR) Note PATIENT NAME: Mateo Stearns PATIENT DIAGNOSIS: Prostate adenocarcinoma, initial PSA 4.46, biopsy Marne score 3 + 3 = 6 (grade [...] Severo Dent MD documented in this encounter [facility] 09-25-2024 Note HNO ID: [id number] Author: UMU NICOLAS LSW Service: ? Author Type: Shade Hanger Type: Progress Notes Filed: 09/25/2024 14:02 Note Text: SOCIAL WORK FOLLOW UP NOTE: [facility] Date of service:09/25/24 TOPICS ADDRESSED: community resources PLAN: Continue follow up as needed Assigned SW listed in Care Team tab: Yes SW completed and faxed a mileage reimbursement form on the Patient's behalf to [facility] Services for the month of August 2024. SUSANNA Sotomayor [facility] 09-25-2024 History of Present illness Narrative SOCIAL WORK FOLLOW UP NOTE: [facility] Date of service:09/25/24 TOPICS ADDRESSED: community resources PLAN: Continue follow up as needed Assigned SW listed in Care Team tab: Yes SW completed and faxed a mileage reimbursement form on the Patient's behalf to [facility] Services for the month of August 2024. SUSANNA Sotomayor documented in this encounter [facility] 09-25-2024 History of Present illness Narrative Radiation Oncology - On Treatment Review (OTR) Note PATIENT NAME: Mateo Stearns PATIENT DIAGNOSIS: Prostate adenocarcinoma, initial PSA 4.46, biopsy Marne score 3 + 3 = 6 (grade [...] Severo Dent MD documented in this encounter [facility] 09-25-2024 Note HNO ID: [id number] Author: Severo DENT MD Service: ? Author [...] Continue radiation as prescribed. Severo Dent MD [facility] 09-24-2024 Telephone encounter Note CBC order pending your approval. Dayanna Call RN [facility] 09-24-2024 Miscellaneous Notes CBC order pending your approval. Dayanna Call RN documented in this encounter [facility] 09-18-2024 Note HNO ID: [id number] Author: UMU NICOLAS LSW Service: ? Author Type: Shade Hanger Type: Progress Notes Filed: 09/18/2024 14:01 Note Text: SOCIAL WORK FOLLOW UP NOTE: RUST Date of service:09/18/24 Mateo Stearns is being [...] will follow up as appropriate. SUSANNA Sotomayor [facility] 09-18-2024 History of Present illness Narrative SOCIAL WORK FOLLOW UP NOTE: RUST Date of service:09/18/24 Mateo Stearns is being [...] appropriate. SUSANNA Sotomayor documented in this encounter [facility] 09-17-2024 History of Present illness Narrative MATEO STEARNS [id number] 09/17/2024 [facility] Radiation Oncology Department SIMULATION NOTE DATE OF SIMULATION: 09/17/2024 THERAPIST: Sabina Rico MACHINE: Monitoring Division DIAGNOSIS: Malignant neoplasm of [id number] AREA: PELVIS CONTRAST: None <Select> Consent in [...] MARIUSZ 44:32 PM documented in this encounter [facility] 09-17-2024 History of Present illness Narrative MATEO STEARNS [id number] 09/17/2024 [facility] Department of Radiation Oncology Treatment Planning Note [...] M.D. :19 AM documented in this encounter [facility] 09-17-2024 Note HNO ID: [id number] Author: Severo DENT MD Service: ? Author Type: Physician Type: Progress Notes Filed: 09/18/2024 16:32 Note Text: MATEO STEARNS Schuyler [id number] 09/17/2024 [facility] Radiation Oncology Department SIMULATION NOTE DATE OF SIMULATION: 09/17/2024 THERAPIST: Sabina Rico MACHINE: Monitoring Division DIAGNOSIS: Malignant neoplasm of [id number] AREA: PELVIS CONTRAST: None Consent in Epic: [...] Gopal Dent M.D. / KG :32 PM [facility] 09-17-2024 Note HNO ID: [id number] Author: Severo DENT MD Service: ? Author Type: Physician Type: Progress Notes Filed: 09/26/2024 08:19 Note Text: MATEO STEARNS Schuyler [id number] 09/17/2024 [facility] Department of Radiation Oncology Treatment Planning Note [...] Electronically Signed Gopal Dent M.D. 48:19 AM [facility] 09-14-2024 Telephone encounter Note I called and spoke with the Patient and I have him scheduled with a PFA appointment (Phone call) to discuss his Financial Questions on 09/18/24 at 9 am. DARRIUS Mckee [facility] 09-14-2024 Miscellaneous Notes I called and spoke [...] Mona Melvin RN documented in this encounter [facility] 09-14-2024 Telephone encounter Note PT called in [...] Umu- please contact pt. Mona Melvin RN [facility] 09-13-2024 History of Present illness Narrative Associated [...] per dr alves documented in this encounter [facility] 09-11-2024 Nurse Note Radiation Therapy - Patient Education Note PATIENT NAME: Mateo Stearns PATIENT September 11, 2024 [facility] FACILITY[facility]LOCATION: [facility] READINESS TO LEARN Cognitive Ability: Alert [...] need for social work, van service, and crutch maker. Was PED reviewed? No Patient has an Onbody or Implanted device: No Signed by: Dayanna Call RN [facility] 09-11-2024 Nurse Note Radiation Therapy - Patient Education Note PATIENT NAME: Mateo Stearns PATIENT September 11, 2024 [facility] FACILITY[facility]LOCATION: [facility] READINESS TO LEARN Cognitive Ability: Alert [...] need for social work, van service, and crutch maker. Was PED reviewed? No Patient has an Onbody or Implanted device: No Signed by: Dayanna Call RN documented in this encounter [facility] 09-11-2024 History of Present illness Narrative Radiation Oncology - Prostate Cancer Follow-up note PATIENT NAME: Mateo Stearns PATIENT DIAGNOSIS: Prostate adenocarcinoma, initial PSA 4.46, biopsy Marne score 3 + 3 = 6 (grade group 1), clinical stage T1c, N0, M0, stage I [cT1a-c/T2a, N0, M0, PSA <10, GG 1] (AJCC 8th ed.), s/p TRUS Random biopsy. HPI: Patient in for follow-up to discuss treatment options again. Laboratory: [facility] genomic risk score: 0.43 (low risk) PSA. [...] ASSESSMENT/PLAN: Prostate adenocarcinoma, initial PSA 4.46, biopsy Marne score 3 + 3 = 6 (grade [...] by: Severo Dent MD cc: Kathie Sánchez, STAFF RADIOGRAPHER (Dr) [address] [place] [address] Rufina Vora [address] [place] [address] documented in this encounter [facility] 09-11-2024 Note HNO ID: [id number] Author: Severo DENT MD Service: ? Author Type: Physician Type: Progress Notes Filed: 09/18/2024 12:03 Note Text: Radiation Oncology - Prostate Cancer Follow-up note PATIENT NAME: Mateo Stearns PATIENT DIAGNOSIS: Prostate adenocarcinoma, initial PSA 4.46, biopsy Marne score 3 + 3 = 6 (grade group 1), clinical stage T1c, N0, M0, stage I [cT1a-c/T2a, N0, M0, PSA <10, GG 1] (AJCC 8th ed.), s/p TRUS Random biopsy. HPI: Patient in for follow-up to discuss treatment options again. Laboratory: [facility] genomic risk score: 0.43 (low risk) PSA. [...] ASSESSMENT/PLAN: Prostate adenocarcinoma, initial PSA 4.46, biopsy Marne score 3 + 3 = 6 (grade [...] by: Severo Dent MD cc: Kathie Sánchez, STAFF RADIOGRAPHER (Dr) [address] [place] [address] Rufina Vora [address] [place] [address] [facility] 09-11-2024 Nurse Note AUA= 3 [facility] 09-11-2024 Nurse Note AUA= 3 documented in this encounter [facility] 09-11-2024 Note Education (CARI) JINNYJOSE ANGELHEMA Schuyler ([id number]) 1960 M Date Time Provider Department 09/11/24 DAYANNA CALL RADGERARDO Reason for Visit: Patient Education [91] Visit Notes: >> Dayanna Call LPN e Sep 11, 2024 2:21 PM Status: Signed Radiation Therapy - Patient Education Note PATIENT NAME: Mateo Stearns PATIENT September 11, 2024 [facility] FACILITY[facility]LOC[facility]: [facility] READINESS TO LEARN Cognitive Ability: Alert [...] need for social work, van service, and crutch maker. Was PED reviewed? No Patient has an [...] Encounter Status:Closed by DAYANNA CALL on 09/11/24 [facility] 07-12-2024 History of Present illness Narrative Radiation Oncology - Prostate Cancer Follow-up note PATIENT NAME: Mateo Stearns PATIENT DIAGNOSIS: 63 year old male with prostate adenocarcinoma, initial PSA 4.46, biopsy Marne score 3 + 3 = 6 (grade [...] ASSESSMENT/PLAN: Prostate adenocarcinoma, initial PSA 4.46, biopsy Marne score 3 + 3 = 6 (grade [...] by: Severo Dent MD cc: Kathie Sánchez, STAFF RADIOGRAPHER ([facility]) [address] [place] [address] Rufina Vora [address] [place] [address] documented in this encounter [facility] 07-12-2024 Note HNO ID: [id number] Author: Severo DENT MD Service: ? Author [...] ASSESSMENT/PLAN: Prostate adenocarcinoma, initial PSA 4.46, biopsy Marne score 3 + 3 = 6 (grade [...] by: Severo Dent MD cc: Kathie Sánchez, STAFF RADIOGRAPHER ([facility]) [address] [place] [address] Rufina Vora [address] [place] [address] [facility] 06-21-2024 Note HNO ID: [id number] Author: Severo DENT MD Service: ? Author [...] with elevated PSA and prostate biopsy demonstrating Marne 6 adenocarcinoma in 2 cores. (Left lateral [...] Chest: No respir (more content not included)... [facility] 06-21-2024 History of Present illness Narrative [...] with elevated PSA and prostate biopsy demonstrating Marne 6 adenocarcinoma in 2 cores. (Left lateral [...] ASSESSMENT/PLAN: Prostate adenocarcinoma, initial PSA 4.46, biopsy Marne score 3 + 3 = 6 (grade [...] by: Severo Dent MD cc: Kathie Sánchez, STAFF RADIOGRAPHER ([facility]) [address] [place] [address] Rufina [address] [place] [address] documented in this encounter [facility] 06-21-2024 Nurse Note Pacemaker/Defibrillator?N Previous Cancer(s)?N Previous Radiation?N Lupus/Scleroderma?N On body monitoring device?N AUA= 5 [facility] 06-21-2024 Nurse Note Pacemaker/Defibrillator?N Previous Cancer(s)?N Previous Radiation?N Lupus/Scleroderma?N On body monitoring device?N AUA= 5 documented in this encounter [facility] 06-01-2024 Note HNO ID: [id number] Author: AMANDEEP CRISOSTOMO MD Service: ? Author Type: Physician Type: Progress Notes Filed: 06/24/2024 16:18 Note Text: Referring Provider: Chief Complaint: Recently diagnosed CaP HPI: 63 year old male from [place], [place] with a PMHx of COPD (40 [...] a biopsy with 8/18 cores positive for Marne 6 disease. Past surgical Hx: total hip [...] review Assessment 63 year old male from [place], [place] with a PMHx of COPD (40 pack-year smoker and poor oxygenation status), Afib (on ASA), and GERD diagnosed with CAP in 05/20 which showed 2 cores of Marne 6 disease. Recently had more + cores on a repeat biopsy and is here to discuss treatment options. He currently has low risk disease. We discussed the treatment options which include continued active surveillance, RARP, and XRT including EBRT or brachytherapy. Given patient's COPD status he may not be best candidate for surgery an (more content not included)... [facility] 06-01-2024 History of Present illness Narrative Referring Provider: Chief Complaint: Recently diagnosed CaP HPI: 63 year old male from [place], [place] with a PMHx of COPD (40 [...] a biopsy with 8/18 cores positive for Marne 6 disease. Past surgical Hx: total hip [...] review Assessment 63 year old male from [place], [place] with a PMHx of COPD (40 [...] MD documented in this encounter [facility] 06-01-2024 Note Patient Outreach (UR OLMN) MATEO STEARNS ([id number]) 1960 Date Time Provider Department 06/01/24 AMANDEEP CRISOSTOMO UROADYN During your visit today, we recorded the following information about you: Allergies As of Date: 06/01/2024 (No Known Allergies) Date Reviewed: 06/01/2024 Reviewed by: Garrett Davis MA - Fully Assessed Visit Diagnosis:Screening for genitourinary condition [Z13.89] Order(s):URINALYSIS, REFLEX MICROSCOPIC [[id number]] Order #: [id number]. #:[id number] Prescriptions as of 06/04/2024 - aspirin, enteric [...] Encounter Status:Closed by NESHA DOYLE on 06/04/24 [facility] 05-21-2024 Hospital Discharge instructions Patient Education [...] similar to normal prostate cells (moderately differentiated). Marne 8, 9, or 10: This indicates that [...] stress of having cancer. General instructions Take okza-liu-ktjqntk and prescription medicines only as told by your health care provider. If you have to go to the hospital, notify your cancer specialist (oncologist). Keep all follow-up visits. This is important. Where to find more information [place] [employer]: www.cancer.org [place] Society of Clinical Oncology: www.cancer.net National Cancer [place]: www.cancer.gov Contact a health care provider if: [...] provider. Document Revised: 02/10/2022 Document Reviewed: 02/10/2022 [employer] Patient Education 2022 [employer] Follow Up Care 01/02/2024 13:58:04 With:DIONY CHANDLER, Rufina Reina, URL Address: [facility] [address] , [place] [phone] When: Unknown [facility] 05-01-2024 Hospital Discharge instructions Patient Education 05/01/2024 [...] for your post-operative appointment in 1-2 weeks [phone] or [phone] Follow Up Care 03/15/2024 14:41:59 With:Rufina VORA Address: [address] [place] [address]- Business (1) When: Unknown Comments:Keep scheduled appointment [facility] 05-01-2024 Note [id number] [facility] 06-06-2023 Hospital Discharge instructions Patient Education [...] the likelihood that the cancer will spread. Marne 6 or lower: This indicates that the cancer cells look similar to normal prostate cells (well differentiated). Marne 7: This indicates that the cancer cells [...] stress of having cancer. General instructions Take uumo-wfc-tadaelm and prescription medicines only as told by your health care provider. If you have to go to the hospital, notify your cancer specialist (oncologist). Keep all follow-up visits. This is important. Where to find more information [place] [employer]: www.cancer.org [place] Society of Clinical Oncology: www.cancer.net National Cancer [place]: www.cancer.gov Contact a health care provider if: [...] provider. Document Revised: 02/10/2022 Document Reviewed: 02/10/2022 [employer] Patient Education 2022 [employer] Follow Up Care 04/27/2023 15:15:09 With:DIONY CHANDLER, Rufina Reina, URL Address: [facility] [address], [place] [phone] When:Within 6 Month(s) Comments:PSA and ANNE-MARIE [facility] 05-17-2023 Hospital Discharge instructions Patient Education 05/17/2023 [...] for your post-operative appointment in 1-2 weeks [phone] or [phone] Follow Up Care 04/27/2023 15:25:07 With:Rufina VORA Address: [facility] [address] [place] [address]- Business (1) When: Unknown Comments:Keep scheduled appointment [facility] 02-07-2023 Hospital Discharge instructions Patient Education [...] if anything looks unusual. Men with a lmsnxv-vkrr-naihxu risk for skin cancer may want to see a skin pass operator (sandblast carver) for an annual body check. Where to find more information National Cancer [place]: https://www.cancer.gov/about-canc er/screening Centers for Disease Control and Prevention: https://www.cdc.gov/cancer/dcpc/p revention/screening.htm [place] [employer]: https://www.cancer.org/latest-new s/2-qdshnh-gpuqyrsit-ocnlj-vut-ph n.html Contact a health care provider if: [...] 08/11/2017 Document Revised: 08/03/2019 Document Reviewed: 08/11/2017 [employer] Patient Education 2020 [employer] Follow Up Care 12/10/2022 10:33:39 With:DIONY CHANDLER, Rufina Reina, URL Address: [facility] [address], [place] [address]- When: Unknown [facility] 05-17-2022 Hospital Discharge instructions Patient Education 05/17/2022 13:40:29 Epidermal Cyst, Krqs-eq-Qawy Epidermal Cyst An epidermal cyst is a [...] yourself. Follow these instructions at home: Take urwk-xao-ojpxeij and prescription medicines only as told by [...] the cyst, or to remove it. Take zeyx-gxe-hkkygec and prescription medicines only as told by [...] 12/22/2005 Document Revised: 03/06/2020 Document Reviewed: 08/23/2019 [employer] Patient Education 2020 [employer] 04/19/2022 08:23:29 Testicular Self-Exam Testicular Self-Exam A [...] 02/20/2002 Document Revised: 03/06/2020 Document Reviewed: 10/10/2017 [employer] Patient Education 2020 [employer] Follow Up Care 03/17/2022 10:53:14 With:DIONY CHANDLER, Rufina Reina, URL Address: [facility] [address] , [place] [address]- When: Unknown [facility] Evaluation + Plan note Future Appointments Appointment Date:06/08/2022 08:45:00 AM Scheduled Provider: Location:[facility] Appointment Type:Urology CALL PAT FT Appointment Date:06/15/2022 09:00:00 AM Scheduled Provider: Location:[facility] Appointment Type:Urology FT [facility] Evaluation + Plan note Future Appointments Appointment Date:08/23/2022 12:30:00 PM Scheduled Provider:Rufina VORA MD Location:[facility] Appointment Type:URO Office Visit [facility] Evaluation + Plan note Future Appointments Appointment Date:06/06/2023 09:45:00 AM Scheduled Provider:Rufina VORA MD Location:[facility] Appointment Type:URO Office Visit Diagnostic Tests PendingProstate Histology ([facility]) 05/17/23 [facility] Evaluation + Plan note Future Appointments Appointment Date:12/09/2023 10:45:00 AM Scheduled Provider:Rufina VORA MD Location:[facility] Appointment Type:URO Office Visit Diagnostic Tests PendingPSA Total 06/06/23 [facility] Evaluation + Plan note Future Appointments Appointment Date:05/21/2024 11:30:00 AM Scheduled Provider:Rufina VORA MD Location:[facility] Appointment Type:URO Office Visit Diagnostic Tests PendingProstate Histology ([facility]) 05/01/24 [facility] Evaluation + Plan note [facility] Evaluation + Plan note Future Appointments Appointment Date:01/18/2025 10:30:00 AM Scheduled Provider:Rufina VORA MD Location:[facility] Appointment Type:URO Office Visit [facility] Evaluation note No Assessments Infor mation Available [facility] Evaluation note Diagnosis Screening for genitourinary [...] Other chronic pain [facility] Diagnosis Malignant neoplasm of prostate (HCC)- Primary Malignant neoplasm of prostate [facility]* Diagnosis Malignant neoplasm of prostate (HCC)- Primary Malignant neoplasm of prostate [facility] Diagnosis Malignant neoplasm of prostate (HCC)- Primary Malignant neoplasm of prostate [facility]* Diagnosis Malignant neoplasm of prostate (HCC)- Primary Malignant neoplasm of prostate [facility]* Diagnosis Malignant neoplasm of prostate (HCC)- Primary Malignant neoplasm of prostate [facility]* Diagnosis Malignant neoplasm of prostate (HCC) Malignant neoplasm of prostate [facility]* Diagnosis Malignant neoplasm of prostate (HCC)- Primary Malignant neoplasm of prostate [facility] Diagnosis Malignant neoplasm of prostate (HCC) Malignant neoplasm of prostate [facility]* Diagnosis Malignant neoplasm of prostate (HCC)- Primary Malignant neoplasm of prostate [facility] Diagnosis Encounter for subsequent annual wellness [...] neoplasm of prostate [facility] Diagnosis Malignant neoplasm of prostate (HCC)- Primary Malignant neoplasm of prostate documented in this encounter [facility] note* Diagnosis Malignant neoplasm of prostate (HCC)- Primary Malignant neoplasm of prostate documented in this encounter [facility] note* Diagnosis Malignant neoplasm of prostate (HCC)- Primary Malignant neoplasm of prostate documented in this encounter [facility] note* Diagnosis Encounter for subsequent annual wellness [...] both eyes- Primary [facility] Narrative No data available for this section [facility] Hospital Discharge instructions No data available for this section [facility] No data available for this section [facility] reason for referral (narrative) Referred by: DIONY CHANDLER, Rufina Reina [facility] Summary Purpose Family History No Family History Records FoundNo Family History Records Found No data available for this section No data available for this section No Family History Records FoundNo Family History Records FoundNo Family History Records Found No data available for this section No Family History Records Found Advance Directives No [...] 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 Severo Dent MD [address] [place] [address] [place] [address] Referral ID Status Reason Start Date Expiration Date Visits Requested Visits Authorized [id number] New Request PCP Requested Referral 4 12/16/2024 1 1 Additional Source Comments (unrecognized sect ion and content) No Status Records FoundNo Status Records FoundNo Status Records FoundNo Status Records FoundNo Status Records FoundNo Status Records Found INFORMATION SOURCE (unrecogn ized section and content) DATE CREATED AUTHOR 04/01/2021 [facility] DATE CREATED AUTHOR AUTHOR'S ORGANIZ ATION 04/13/2023 [facility] DATE CREATED AUTHOR AUTHOR'S ORGANIZ ATION 05/22/[address] [facility] DATE CREATED AUTHOR AUTHOR'S ORGANIZ ATION 12/15/2024 [facility] DATE CREATED AUTHOR AUTHOR'S ORGANIZ ATION 01/04/2025 [facility] DATE CREATED AUTHOR AUTHOR'S ORGANIZ ATION 01/13/[address] [facility] Care Team (unrecognized sect ion and content) Research And Development Specialist Relationship Specialty Start Date End Date Curt De Dios MD [address] [place] [address] PCP - General Family Medicine 11/11/23 Kathie Sánchez NP [address] [place] [address] Nurse Practitioner Family Medicine 10/03/23 Research And Development Specialist Relationship Specialty Start Date End Date Peter Bhat DO PCP - General Family Medicine 05/11/13 Research And Development Specialist Relationship Specialty Start Date End Date Kathie Sánchez, STAFF RADIOGRAPHER [address] [place] [address] PCP - General Family Medicine 06/21/24 Research And Development Specialist Relationship Specialty Start Date End Date Peter Bhat DO PCP - General Family Medicine 05/11/13 06/20/24 Research And Development Specialist Relationship Specialty Start Date End Date Kathie Sánchez STAFF RADIOGRAPHER [address] [place] [address] PCP - General Family Medicine 06/21/24 Research And Development Specialist Relationship Specialty Start Date End Date Kathie Sánchez NP [address] [place] [address] PCP - Crow LAFLEUR 12/29/23 Curt De Dios MD [address] [place] [address] PCP - General Family Medicine 02/28/24 Kathie Sánchez NP [address] [place] [address] Nurse Practitioner Family Medicine 10/03/23 Kathie Sánchez NP [address] [place] [address] Nurse Practitioner Family Medicine 02/28/24 Research And Development Specialist Relationship Specialty Start Date End Date Kathie Sánchez CNP [address] [place] [address] PCP - General Family Medicine 06/21/24 Research And Development Specialist Relationship Specialty Start Date End Date Kathie Sánchez NP [address] [place] [address] PCP - Crow LAFLEUR 12/29/23 Curt De Dios MD [address] [place] [address] PCP - General Family Medicine 02/28/24 Kathie Sánchez NP [address] [place] [address] Nurse Practitioner Family Medicine 10/03/23 Kathie Sánchez NP [address] [place] [address] Nurse Practitioner Family Medicine 02/28/24 Research And Development Specialist Relationship Specialty Start Date End Date Kathie Sánchez NP [address] [place] [address] PCP - Crow LAFLEUR 12/29/23 Curt De Dios MD [address] [place] [address] PCP - General Family Medicine 02/28/24 Kathie Sánchez NP [address] [place] [address] Nurse Practitioner Family Medicine 10/03/23 Kathie Sánchez NP [address] [place] [address] Nurse Practitioner Family Medicine 02/28/24 Research And Development Specialist Relationship Specialty Start Date End Date Kathie Sánchez CNP [address] [place] [address] PCP - General Family Medicine 06/21/24 Research And Development Specialist Relationship Specialty Start Date End Date Kathie Sánchez CNP [address] [place] [address] PCP - General Family Medicine 06/21/24 Research And Development Specialist Relationship Specialty Start Date End Date Kathie Sánchez CNP [address] [place] [address] PCP - General Family Medicine 06/21/24 Umu Nicolas LSW [employer] 09/18/24 Research And Development Specialist Relationship Specialty Start Date End Date Kathie Sánchez CNP [address] [place] [address] PCP - General Family Medicine 06/21/24 Umu Nicolas LSW [employer] 09/18/24 Research And Development Specialist Relationship Specialty Start Date End Date Kathie Sánchez CNP [address] [place] [address] PCP - General Family Medicine 06/21/24 Umu Nicolas, SECOND CHEF [employer] 09/18/24 Research And Development Specialist Relationship Specialty Start Date End Date Kathie Sánchez CNP [address] [place] [address] PCP - General Family Medicine 06/21/24 Umu Nicolas, SECOND CHEF [employer] 09/18/24 Research And Development Specialist Relationship Specialty Start Date End Date Kathie Sánchez, STAFF RADIOGRAPHER [address] [place] [address] PCP - General Family Medicine 06/21/24 Umu Nicolas, SECOND CHEF [employer] 09/18/24 Research And Development Specialist Relationship Specialty Start Date End Date Kathie Sánchez CNP [address] [place] [address] PCP - General Family Medicine 06/21/24 Umu Nicolas, SECOND CHEF [employer] 09/18/24 Research And Development Specialist Relationship Specialty Start Date End Date Kathie Sánchez CNP [address] [place] [address] PCP - General Family Medicine 06/21/24 Umu Nicolas, SECOND CHEF [employer] 09/18/24 Research And Development Specialist Relationship Specialty Start Date End Date Kathie Sánchez STAFF RADIOGRAPHER [address] [place] [address] PCP - General Family Medicine 06/21/24 Umu Nicolas, SECOND CHEF [employer] 09/18/24 Research And Development Specialist Relationship Specialty Start Date End Date Kathie Sánchez NP [address] [place] [address] PCP - Crow LAFLEUR 12/29/23 Curt De Dios MD [address] [place] [address] PCP - General Family Medicine 02/28/24 Kathie Sánchez NP [address] [place] [address] Nurse Practitioner Family Medicine 10/03/23 Kathie Sánchez NP [address] [place] [address] Nurse Practitioner Family Medicine 02/28/24 Research And Development Specialist Relationship Specialty Start Date End Date Kathie Sánchez CNP [address] [place] [address] PCP - General Family Medicine 06/21/24 Umu Nicolas, SECOND CHEF [employer] 09/18/24 Research And Development Specialist Relationship Specialty Start Date End Date Kathie Sánchez CNP [address] [place] [address] PCP - General Family Medicine 06/21/24 Umu Nicolas LSW [employer] 09/18/24 Research And Development Specialist Relationship Specialty Start Date End Date Kathie Sánchez CNP [address] [place] [address] PCP - General Family Medicine 06/21/24 Umu Nicolas, SECOND CHEF [employer] 09/18/24 Research And Development Specialist Relationship Specialty Start Date End Date Kathie Sánchez NP [address] [place] [address] PCP - Crow LAFLEUR 12/29/23 Curt De Dios MD [address] [place] [address] PCP - General Family Medicine 02/28/24 Kathie Sánchez NP [address] [place] [address] Nurse Practitioner Family Medicine 10/03/23 Kathie Sánchez NP [address] [place] [address] Nurse Practitioner Family Medicine 02/28/24 Research And Development Specialist Relationship Specialty Start Date End Date Kathie Sánchez NP [address] [place] [address] PCP - Crow LAFLEUR 12/29/23 Curt De Dios MD [address] [place] [address] PCP - General Family Medicine 02/28/24 Kathie Sánchez NP [address] [place] [address] Nurse Practitioner Family Medicine 10/03/23 Kathie Sánchez NP [address] [place] [address] Nurse Practitioner Family Medicine 02/28/24 Research And Development Specialist Relationship Specialty Start Date End Date Kathie Sánchez NP [address] [place] [address] PCP - Crow LAFLEUR 12/29/23 Curt De Dios MD [address] [place] [address] PCP - General Family Medicine 02/28/24 Kathie Sánchez NP [address] [place] [address] Nurse Practitioner Family Medicine 10/03/23 Kathie Sánchez NP [address] [place] [address] Nurse Practitioner Family Medicine 02/28/24 Research And Development Specialist Relationship Specialty Start Date End Date Kathie Sánchez CNP [address] [place] [address] PCP - General Family Medicine 06/21/24 Umu Nicolas LSW [employer] 09/18/24 Research And Development Specialist Relationship Specialty Start Date End Date Kathie Sánchez CNP [address] [place] [address] PCP - General Family Medicine 06/21/24 Umu Nicolas LSW [employer] 09/18/24 Research And Development Specialist Relationship Specialty Start Date End Date Kathie Sánchez CNP [address] [place] [address] PCP - General Family Medicine 06/21/24 Umu Nicolas, SECOND CHEF [employer] 09/18/24 Research And Development Specialist Relationship Specialty Start Date End Date Kathie Sánchez STAFF RADIOGRAPHER [address] [place] [address] PCP - General Family Medicine 06/21/24 Umu Nicolas, SECOND CHEF [employer] 09/18/24 Research And Development Specialist Relationship Specialty Start Date End Date Kathie Sánchez STAFF RADIOGRAPHER [address] [place] [address] PCP - General Family Medicine 06/21/24 Umu Nicolas, SECOND CHEF [employer] 09/18/24 Research And Development Specialist Relationship Specialty Start Date End Date Kathie Sánchez CNP [address] [place] [address] PCP - General Family Medicine 06/21/24 Umu Nicolas LSW [employer] 09/18/24 Research And Development Specialist Relationship Specialty Start Date End Date Kathie Sánchez NP [address] [place] [address] PCP - Crow LAFLEUR 12/29/23 Curt De Dios MD [address] [place] [address] PCP - General Family Medicine 02/28/24 Kathie Sánchez NP [address] [place] [address] [address] Nurse Practitioner Family Medicine 10/03/23 Kathie Sánchez NP [address] [place] [address] Nurse Practitioner Family Medicine 02/28/24 Lissa Garza MA Family [facility] 12/05/24 Research And Development Specialist Relationship Specialty Start Date End Date Kathie Sánchez NP [address] [place] [address] PCP - Crow LAFLEUR 12/29/23 Curt De Dios MD [address] [place] [address] PCP - General Family Medicine 02/28/24 Kathie Sánchez NP [address] [place] [address] Nurse Practitioner Family Medicine 10/03/23 Kathie Sánchez NP [address] [place] [address] Nurse Practitioner Family Medicine 02/28/24 Lissa Garza MA Family Medicine 12/05/24 Andrade Pendleton OD [address] [place] [address] [place] [address] Referring Physician Optometry 01/02/25 Source Comments (unrecognize d section and content) In the event this informatio n is protected by the Federal Confidentiality of Alcohol and Drug Abuse Patient Records regulations: The Federal rules restrict any use of the information to criminally investigate or prosecute any alcohol or drug abuse patient.[facility] TroyIn the event this information is protected by the Federal Confidentiality of Alcohol and Drug Abuse Patient Records regulations: The Federal rules restrict any use of the information to criminally investigate or prosecute any alcohol or drug abuse patient.[facility] TroyIn the event this information is protected by the Federal Confidentiality of Alcohol and Drug Abuse Patient Records regulations: The Federal rules restrict any use of the information to criminally investigate or prosecute any alcohol or drug abuse patient.[facility] TroyIn the event this information is protected by the Federal Confidentiality of Alcohol and Drug Abuse Patient Records regulations: The Federal rules restrict any use of the information to criminally investigate or prosecute any alcohol or drug abuse patient.[facility] TroyIn the event this information is protected by the Federal Confidentiality of Alcohol and Drug Abuse Patient Records regulations: The Federal rules restrict any use of the information to criminally investigate or prosecute any alcohol or drug abuse patient.[facility] TroyIn the event this information is protected by the Federal Confidentiality of Alcohol and Drug Abuse Patient Records regulations: The Federal rules restrict any use of the information to criminally investigate or prosecute any alcohol or drug abuse patient.[facility] TroyIn the event this information is protected by the Federal Confidentiality of Alcohol and Drug Abuse Patient Records regulations: The Federal rules restrict any use of the information to criminally investigate or prosecute any alcohol or drug abuse patient.[facility] TroyIn the event this information is protected by the Federal Confidentiality of Alcohol and Drug Abuse Patient Records regulations: The Federal rules restrict any use of the information to criminally investigate or prosecute any alcohol or drug abuse patient.[facility] TroyIn the event this information is protected by the Federal Confidentiality of Alcohol and Drug Abuse Patient Records regulations: The Federal rules restrict any use of the information to criminally investigate or prosecute any alcohol or drug abuse patient.[facility] TroyIn the event this information is protected by the Federal Confidentiality of Alcohol and Drug Abuse Patient Records regulations: The Federal rules restrict any use of the information to criminally investigate or prosecute any alcohol or drug abuse patient.[facility] TroyIn the event this information is protected by the Federal Confidentiality of Alcohol and Drug Abuse Patient Records regulations: The Federal rules restrict any use of the information to criminally investigate or prosecute any alcohol or drug abuse patient.[facility] TroyIn the event this information is protected by the Federal Confidentiality of Alcohol and Drug Abuse Patient Records regulations: The Federal rules restrict any use of the information to criminally investigate or prosecute any alcohol or drug abuse patient.[facility] TroyIn the event this information is protected by the Federal Confidentiality of Alcohol and Drug Abuse Patient Records regulations: The Federal rules restrict any use of the information to criminally investigate or prosecute any alcohol or drug abuse patient.[facility] TroyIn the event this information is protected by the Federal Confidentiality of Alcohol and Drug Abuse Patient Records regulations: The Federal rules restrict any use of the information to criminally investigate or prosecute any alcohol or drug abuse patient.[facility] TroyIn the event this information is protected by the Federal Confidentiality of Alcohol and Drug Abuse Patient Records regulations: The Federal rules restrict any use of the information to criminally investigate or prosecute any alcohol or drug abuse patient.[facility] TroyIn the event this information is protected by the Federal Confidentiality of Alcohol and Drug Abuse Patient Records regulations: The Federal rules restrict any use of the information to criminally investigate or prosecute any alcohol or drug abuse patient.[facility] TroyIn the event this information is protected by the Federal Confidentiality of Alcohol and Drug Abuse Patient Records regulations: The Federal rules restrict any use of the information to criminally investigate or prosecute any alcohol or drug abuse patient.[facility] TroyIn the event this information is protected by the Federal Confidentiality of Alcohol and Drug Abuse Patient Records regulations: The Federal rules restrict any use of the information to criminally investigate or prosecute any alcohol or drug abuse patient.[facility] TroyIn the event this information is protected by the Federal Confidentiality of Alcohol and Drug Abuse Patient Records regulations: The Federal rules restrict any use of the information to criminally investigate or prosecute any alcohol or drug abuse patient.[facility] TroyIn the event this information is protected by the Federal Confidentiality of Alcohol and Drug Abuse Patient Records regulations: The Federal rules restrict any use of the information to criminally investigate or prosecute any alcohol or drug abuse patient.[facility] TroyIn the event this information is protected by the Federal Confidentiality of Alcohol and Drug Abuse Patient Records regulations: The Federal rules restrict any use of the information to criminally investigate or prosecute any alcohol or drug abuse patient.[facility] TroyIn the event this information is protected by the Federal Confidentiality of Alcohol and Drug Abuse Patient Records regulations: The Federal rules restrict any use of the information to criminally investigate or prosecute any alcohol or drug abuse patient.[facility] TroyIn the event this information is protected by the Federal Confidentiality of Alcohol and Drug Abuse Patient Records regulations: The Federal rules restrict any use of the information to criminally investigate or prosecute any alcohol or drug abuse patient.[facility] TroyIn the event this information is protected by the Federal Confidentiality of Alcohol and Drug Abuse Patient Records regulations: The Federal rules restrict any use of the information to criminally investigate or prosecute any alcohol or drug abuse patient.[facility] TroyIn the event this information is protected by the Federal Confidentiality of Alcohol and Drug Abuse Patient Records regulations: The Federal rules restrict any use of the information to criminally investigate or prosecute any alcohol or drug abuse patient.[facility] TroyIn the event this information is protected by the Federal Confidentiality of Alcohol and Drug Abuse Patient Records regulations: The Federal rules restrict any use of the information to criminally investigate or prosecute any alcohol or drug abuse patient.[facility] Reason for Visit (unrecogniz ed section and [...] BE BASED ON THE PRIMARY CLINICAL RECORDS. [facility] [employer] [facility]. provides no warranty or guarantee of the accuracy or completeness of information in this document.
[2025-01-13 18:12] VITALS: BP 117/84; PULSE 93; TEMP 37.6; O2SAT 96; BMI 22.7
--- NOTE | 2025-01-13 19:27 | XR_ITS ---
The [address] [address] Patient Name: MATEO STEARNS MRN: [id number] date: 1960 Sex: M Assigned Patient Location: ER Current Patient Location: ER Accession/Order Number: [id number] Exam Date: 01/13/2025 19:34 Report Date: 01/13/2025 22:02 At the request of: BATSHEVA BATISTA Procedure: XR hip RT 2V w/ pelvis EXAM: XR hip RT 2V w/ pelvis HISTORY: fall onto right hip COMPARISON: None. TECHNIQUE: 3 views of the right hip FINDINGS: Status post bilateral total hip arthroplasty. No hardware complication. There is no dislocation. There is a lucent line through the subtrochanteric region, suspicious for nondisplaced fracture. XR/XR hip RT 2V w/ pelvis IMPRESSION: a lucent line through the subtrochanteric region, suspicious for nondisplaced fracture. Electronically authenticated by: TERE FIELD Date: 01/13/2025 22:02
--- NOTE | 2025-01-13 19:29 | ED.FALL1 ---
HPI HPI - Fall General Chief Complaint: Fall Stated Complaint: FALL Time Seen by Provider: 01/13/25 19:19 Source: patient Mode of arrival: ambulance Limitations: no limitations History of Present Illness HPI Narrative: This 64-year-old male with history of COPD who is home oxygen dependent presents for evaluation of right hip pain. He was walking outside and missed a step and landed on his right hip. EMS was called. He was unable to get up after falling. They were able to help him up and then he was able to slightly weight-bear with his walker. He denies striking his head. He did hit his left hand and has a skin tear on the palmar aspect of the right thumb. He has no neck or back pain. He states he has had hip replacement surgery in the past. He states he has not had much to eat or drink today because he was here recently for abdominal pain and it has not resolved yet. He has some mild nausea but denies any vomiting or diarrhea. His pain is in the right hip joint area and worse with any movement. He also requested to be tested for COVID-19 because he is having cough and runny nose and feels like her shortness of breath was worse than usual Related Data Home Medications ?Medication ?Instructions ?Recorded ?Confirmed albuterol sulfate 90 mcg/actuation 1 inh inhalation Q4H PRN shortness 01/05/24 01/10/25 aerosol inhaler of breath or wheezing aspirin 81 mg tablet,delayed 81 mg PO DAILY 01/05/24 01/10/25 release budesonide-formoterol HFA 160 2 puff inhalation BID 01/05/24 01/10/25 mcg-4.5 mcg/actuation aerosol inhaler diltiazem HCl 180 mg 180 mg PO DAILY 01/05/24 01/10/25 capsule,extended release 24 hr, controlled pantoprazole 40 mg tablet,delayed 40 mg PO DAILY 01/05/24 01/10/25 release roflumilast 500 mcg tablet 500 mcg PO DAILY 01/05/24 01/10/25 tiotropium bromide 2.5 2 inh inhalation DAILY PRN 01/05/24 01/10/25 mcg/actuation mist for inhalation shortness of breath (Spiriva Respimat) Previous Rx's ?Medication ?Instructions ?Recorded albuterol sulfate 2.5 mg/3 mL 2.5 mg (3 mL) inhalation Q6H PRN 11/28/24 (0.083 %) solution for nebulization shortness of breath or wheezing #90 mL Allergies Allergy/AdvReac Type Severity Reaction Status Date / Time No Known Drug Allergies Allergy Verified 01/13/25 18:12 Opioid HPI Opioid Management Most Recent Pain and Opioid Data: Last Pain Scale 8 01/13/25 21:48 01/13/25 Review of Systems ROS Status of ROS 10 or more systems reviewed and unremarkable except as noted in history and below PFSH PFS Social History Little interest or pleasure in doing things: not at all Feeling down, depressed, or hopeless: not at all Exam Narrative Exam Narrative: Vital signs and Nursing Notes reviewed: Patient is afebrile with a normal pulse, normal blood pressure, he is not hypoxic with pulse ox of 96% on 2 L General: Awake, alert, oriented, GCS 15, thin uncomfortable appearing adult male, mild exertional dyspnea HEENT: Normocephalic atraumatic, mucous membranes are moist and pink, eyes are clear, normal conjunctiva, vision is grossly intact Neck: Supple, no midline bony vertebral tenderness or step-off Chest: Coarse breath sounds bilaterally with mild expiratory wheezing and conversational and exertional dyspnea, no rhonchi or rales appreciated CVS: Regular rate and rhythm S1-S2, no murmurs rubs or gallops, pulses are brisk and equal bilaterally ABD: Soft, nondistended, nontender, no rebound guarding or rigidity, bowel sounds are normal, no pulsatile masses appreciated Extremities: There is tenderness over the right hip over the patient is able to flex at the right hip and knee. There is a superficial abrasion on the medial aspect of the left thenar eminence/thumb, there is no length discrepancy between the left and right leg. Skin: Normal in appearance without rash,pallor, petechiae or purpura Neuro: No focal deficits Constitutional Vital Signs, click to edit/add: Last Vital Signs Temp 99.6 F 01/13/25 18:12 Pulse 93 H 01/13/25 18:12 Resp 18 01/13/25 18:12 BP 117/84 01/13/25 18:12 Pulse Ox 96 01/13/25 18:12 O2 Del Method Nasal Cannula 01/13/25 18:12 O2 Flow Rate 2 01/13/25 18:12 Course Vital Signs Vital signs: Vital Signs Temperature 99.6 F 01/13/25 18:12 Pulse Rate 93 H 01/13/25 18:12 Respiratory Rate 18 01/13/25 18:12 Blood Pressure 117/84 01/13/25 18:12 Pulse Oximetry 96 01/13/25 18:12 Oxygen Delivery Method Nasal Cannula 01/13/25 18:12 Oxygen Delivery Flow Rate 2 01/13/25 18:12 Temperature 99.6 F 01/13/25 18:12 Pulse Rate 93 H 01/13/25 18:12 Respiratory Rate 18 01/13/25 18:12 Blood Pressure 117/84 01/13/25 18:12 Pulse Oximetry 96 01/13/25 18:12 Oxygen Delivery Method Nasal Cannula 01/13/25 18:12 Oxygen Delivery Flow Rate 2 01/13/25 18:12 MDM - Fall MDM Narrative Medical decision making narrative: This 64-year-old male is brought to the emergency department by EMS from home after he fell outside after missing a stair. He fell onto his right hip. He also sustained a skin tear to his left hand. He denies striking his head. He has no neck or back pain. He is on home oxygen. He states he was recently in the emergency department for abdominal pain. I reviewed his visit from that time and it was found that he had enteritis. He states he is still not feeling well from the enteritis and has not had anything to eat today. He did have an empty bag of chocolate chip cookies in his jacket pocket as well as another cookie that he had not eaten yet. He denies any chest pain or worsening shortness of breath. He does have a history of COPD and is home oxygen dependent. He requested to be COVID tested because he has had some increasing shortness of breath and nasal congestion. An IV was placed and he was medicated with IV fluids, Zofran and 2 doses of morphine. He had moderate relief of his pain with the morphine. Routine labs are reviewed. He has a normal white count and hemoglobin. Electrolytes are normal. He was negative for COVID-19. X-ray of the chest was reviewed by radiology and does not show any acute findings. X-ray of the right hip shows a nondisplaced fracture of the right proximal femur. The hardware in both of his hips appears to be intact. The results of these findings were discussed with the patient and the hospitalist. He is excepted for admission. The hospitalist requested that I add on an influenza test due to his upper respiratory symptoms and he is positive for influenza A. He was given a dose of Tamiflu prior to being transferred to the floor. Medical Records Medical records narrative: [place] [address] XRay Report Signed Patient: MATEO STEARNS MR#: [id number] : 1960 Acct:[id number] Age/Sex: 64 / M ADM Date: 01/13/25 Loc: ER Attending Dr: Ordering Physician: Althea Ag Date of Service: 01/13/25 Procedure(s): XR chest 1V Accession Number(s): [id number] cc: Kathie Sánchez NP; Althea Ag~ The [address] [address] Patient Name: MATEO STEARNS MRN: [id number] date: 1960 Sex: M Assigned Patient Location: ER Current Patient Location: ER Accession/Order Number: [id number] Exam Date: 01/13/2025 19:50 Report Date: 01/13/2025 22:05 At the request of: ALTHEA AG Procedure: XR chest 1V EXAM: XR chest 1V HISTORY: SOB COMPARISON: 04/09/2024 TECHNIQUE: Chest X-ray AP, 1 view FINDINGS: Support devices: None. Lungs/pleura: No consolidation, effusion, or pneumothorax. Heart and mediastinum: Normal contours. Bones: No acute abnormality identified. XR/XR chest 1V Impression: No radiographic evidence of acute cardiopulmonary process. Electronically authenticated by: TERE FIELD Date: 01/13/2025 22:05 Lab Data Labs: Lab Results 01/13/25 01/13/25 01/13/25 Range/Units 19:15 20:05 21:04 WBC 7.3 (4.0-11.0) 10^3/uL RBC 4.08 L (4.70-6.10) 10^6/uL Hgb 12.4 L (14.0-18.0) g/dL Hct 36.6 L (42.0-54.0) % MCV 89.7 (80.0-94.0) fL MCH 30.4 (25.9-34.0) pg MCHC 33.9 (29.9-35.2) g/dL RDW 13.9 (11.0-15.0) % Plt Count 173 (150-450) 10^3/uL MPV 10.3 (9.5-13.5) fL Neut % (Auto) 83.6 H (43.0-75.0) % Lymph % (Auto) 9.8 L (20.5-60.0) % [place] % (Auto) 4.8 (1.7-12.0) % Eos % (Auto) 0.0 L (0.9-7.0) % Baso % (Auto) 0.3 (0.2-2.0) % Neut # (Auto) 6.1 (1.4-6.5) 10^3/uL Lymph # (Auto) 0.7 L (1.2-3.8) 10^3/uL [place] # (Auto) 0.4 (0.3-0.8) 10^3/uL Eos # (Auto) 0.0 (0.0-0.7) 10^3/uL Baso # (Auto) 0.0 (0.0-0.1) 10^3/uL Abs Immat Gran (auto) 0.11 H (0.00-0.03) 10^3/uL Imm/Tot Granulo (auto) 1.5 H (0.0-0.5) % Sodium 140 (136-145) mmol/L Potassium 4.6 (3.5-5.1) mmol/L Chloride 106 (98-107) mmol/L Carbon Dioxide 25.8 (21.0-32.0) mmol/L Anion Gap 12.8 BUN 17.0 (7.0-18.0) mg/dL Creatinine 1.07 (0.70-1.30) mg/dL Est GFR ( Amer) >60 (>=60 mL/min/1.73m^2) Est GFR (Non-Af Amer) >60 (>=60 mL/min/1.73m^2) BUN/Creatinine Ratio 15.9 Glucose 90 (74-106) mg/dL Calcium 7.5 L (8.5-10.1) mg/dL Influenza Type A Ag Positive A Influenza Type B Ag Negative SARS-CoV-2 Ag (CV2AG) Negative (NEGATIVE) Discharge Plan Discharge Chief Complaint: Fall Clinical Impression: Fall from standing, Influenza A, Closed fracture of proximal end of femur, COPD (chronic obstructive pulmonary disease) Patient Disposition: Admitted as Observation Time of Disposition Decision: 22:56 Condition: Good Prescriptions / Home Meds: No Action albuterol sulfate 90 mcg/actuation HFA aerosol inhaler 1 inh INHALATION Q4H PRN (Reason: shortness of breath or wheezing) aspirin 81 mg tablet,delayed release (DR/EC) 81 mg PO DAILY budesonide-formoterol 160-4.5 mcg/actuation HFA aerosol inhaler 2 puff INHALATION BID diltiazem HCl 180 mg capsule,ext.rel 24h degradable 180 mg PO DAILY pantoprazole 40 mg tablet,delayed release (DR/EC) 40 mg PO DAILY roflumilast 500 mcg tablet 500 mcg PO DAILY Spiriva Respimat 2.5 mcg/actuation mist 2 inh INHALATION DAILY PRN (Reason: shortness of breath) albuterol sulfate 2.5 mg /3 mL (0.083 %) solution for nebulization 2.5 mg inhalation Q6H PRN (Reason: shortness of breath or wheezing) Qty: 90 0RF Print Language: Peruvian Referrals: Kathie Sánchez RESIDENT INTERN [Primary Care Provider] - 1 week
[2025-01-13 19:47] LABS: Internal Control Within Normal Limits; SARS-CoV-2 Ag NEGATIVE (NEGATIVE)
--- NOTE | 2025-01-13 19:48 | XR_ITS ---
The [address] [address] Patient Name: MATEO STEARNS MRN: [id number] date: 1960 Sex: M Assigned Patient Location: ER Current Patient Location: ER Accession/Order Number: [id number] Exam Date: 01/13/2025 19:50 Report Date: 01/13/2025 22:05 At the request of: BATSHEVA MARKER Procedure: XR chest 1V EXAM: XR chest 1V HISTORY: SOB COMPARISON: 04/09/2024 TECHNIQUE: Chest X-ray AP, 1 view FINDINGS: Support devices: None. Lungs/pleura: No consolidation, effusion, or pneumothorax. Heart and mediastinum: Normal contours. Bones: No acute abnormality identified. XR/XR chest 1V Impression: No radiographic evidence of acute cardiopulmonary process. Electronically authenticated by: TERE FIELD Date: 01/13/2025 22:05
[2025-01-13] MEDS: ONDANSETRON PF 4 MG/2 ML VIAL IV (20:05)
[2025-01-13] MEDS: MORPHINE SULFATE 4 MG/ML VIAL IV ×2 (20:05→21:48)
[2025-01-13] MEDS: 0.9 % SODIUM CHLORIDE 1,000 ML 1000 ML IV (20:06)
[2025-01-13 20:15] LABS: Basophils Percent Auto 0.3 % (0.2-2.0); Hematocrit 36.6 % (42.0-54.0); Hemoglobin 12.4 g/dL (14.0-18.0); Immature Granulocytes Abs Auto 0.11 10^3/uL (0.00-0.03); Immature Granulocytes Pct Auto 1.5 % (0.0-0.5); Lymphocytes Absolute Auto 0.7 10^3/uL (1.2-3.8); Lymphocytes Percent Auto 9.8 % (20.5-60.0); Mean Corpuscular HGB Conc 33.9 g/dL (29.9-35.2); Mean Corpuscular Hemoglobin 30.4 pg (25.9-34.0); Mean Corpuscular Volume 89.7 fL (80.0-94.0); Mean Platelet Volume 10.3 fL (9.5-13.5); Monocytes Absolute Auto 0.4 10^3/uL (0.3-0.8); Monocytes Percent Auto 4.8 % (1.7-12.0); Neutrophils Absolute Auto 6.1 10^3/uL (1.4-6.5); Neutrophils Percent Auto 83.6 % (43.0-75.0); Platelet Count 173 10^3/uL (150-450); Red Blood Count 4.08 10^6/uL (4.70-6.10); Red Cell Distribution Width 13.9 % (11.0-15.0); White Blood Count 7.3 10^3/uL (4.0-11.0)
[2025-01-13 21:18] LABS: Anion Gap 12.8; BUN Creatinine Ratio 15.9; Calcium 7.5 mg/dL (8.5-10.1); Carbon Dioxide 25.8 mmol/L (21.0-32.0); Chloride 106 mmol/L (98-107); Estimated GFR (African America >60 (>=60 mL/min/1.73m^2); Estimated GFR (Non-African Ame >60 (>=60 mL/min/1.73m^2); Glucose 90 mg/dL (74-106); Potassium 4.6 mmol/L (3.5-5.1); Sodium 140 mmol/L (136-145)
[2025-01-13] MEDS: BACITRACIN 0.9 GM PACKET 1 PACKET TOPICAL (21:49)
[2025-01-13 22:40] LABS: Influenza Virus A Antigen Positive; Influenza Virus B Antigen Negative; Internal Control Within Normal Limits
[2025-01-13] MEDS: IPRATROPIUM/ALBUTEROL SULFATE 3 ML AMPUL.NEB IH (22:48)
[2025-01-13 22:51] VITALS: PULSE 71; O2SAT 91
[2025-01-13 23:00] VITALS: BP 145/87; PULSE 102; TEMP 37; O2SAT 98
[2025-01-13] MEDS: HYDROMORPHONE HCL 1 MG/ML CARTRIDGE IVP (23:29)
[2025-01-13] MEDS: 0.9 % SODIUM CHLORIDE 1,000 ML 100 ML IV (23:31)
[2025-01-14] VITALS (24 sets, daily range): BP systolic 143–156; BP diastolic 65–88; PULSE 80–118; TEMP 36.5–37.2; O2SAT 84–95; BMI 22.1
--- OUTSIDE RECORDS SUMMARY | 2025-01-14 01:06 | XMS_ITS | CCD ---
Demographics Address [address] [facility] [address] [place] [id number] Mobile Preferred Language en Marital Status Denominational Affiliation Unknown Race White Ethnic Group Not or Lati no Author Organization [facility] Care Team Providers Care Blasting Clay Miner Name Role Phone Bryan Quick Attending Provider AICHKATHIE ST Primary Care Physician [phone] AICHHOLZ, STEAM CRANE OPERATOR KATHIE Primary Care Unavailable DR LEONOR MA Consulting Unavailable SAMSA ., ROBERTO Admitting Unavailable SAMSA ., ROBERTO Attending Unavailable SAMSA ., ROBERTO Consulting Unavailable AICHHOLZ, STEAM CRANE OPERATOR KATHIE Admitting Unavailable AICHHOLZ, STEAM CRANE OPERATOR KATHIE Attending Unavailable AICHHOLZ, STEAM CRANE OPERATOR KATHIE Consulting Unavailable AICHHOLZ, STEAM CRANE OPERATOR KATHIE Primary Care Unavailable AICHHOLZ, STEAM CRANE OPERATOR KATHIE Admitting Unavailable AICHHOLZ, STEAM CRANE OPERATOR KATHIE Primary Care Unavailable AICHHOLZ, STEAM CRANE OPERATOR KATHIE Attending Unavailable AICHHOLZ, STEAM CRANE OPERATOR KATHIE Consulting Unavailable AICHHOLZ, STEAM CRANE OPERATOR KATHIE Primary Care Unavailable DR LEONOR MA Consulting Unavailable SAMSA ., ROBERTO Admitting Unavailable SAMSA ., ROBERTO Attending Unavailable SAMSA ., ROBERTO Consulting Unavailable DR LEONOR MA Consulting Unavailable SAMSA ., ROBERTO Admitting Unavailable SAMSA ., ROBERTO Attending Unavailable SAMSA ., ROBERTO Consulting Unavailable DR ELSA NOBLE Admitting Unavailable DR OK CISNEROS V Consulting Unavailable AICHHOLZ, STEAM CRANE OPERATOR KATHIE Primary Care Unavailable DR ELSA NOBLE Attending Unavailable DR ELSA NOBLE Consulting Unavailable SAMSA ., ROBERTO Admitting Unavailable AICHHOLZ, STEAM CRANE OPERATOR KATHIE Primary Care Unavailable SAMSA ., ROBERTO Attending Unavailable SAMSA ., ROBERTO Consulting Unavailable SAMSA ., ROBERTO Admitting Unavailable AICHHOLZ, STEAM CRANE OPERATOR KATHIE Primary Care Unavailable DR LEONOR MA Consulting Unavailable SAMSA ., ROBERTO Attending Unavailable SAMSA ., ROBERTO Consulting Unavailable Aichholz BACK STRIP MACHINE OPERATOR, Kathie Unavailable Lanre CHANDLER, Curt Primary Care Provider Rufina VORA Attending Unavailable VORA, Rufina R Attending Unavailable VORA, Rufina R Attending Unavailable VORA, Rufina R Attending Unavailable VORA, Rufina R Admitting Unavailable VORA, Rufina R Referring Unavailable Rufina VORA R Attending Unavailable Bhat DO, Peter Cruz Primary Care Provider Aichholz STEAM CRANE OPERATOR, Kathie Rosen Primary Care Provider [phone] Bhat DOPeter Primary Care Provider Aichholz BACK STRIP MACHINE OPERATOR, Kathie Unavailable Aichholz BACK STRIP MACHINE OPERATOR, Kathie Unavailable Lanre CHANDLER, Curt Primary Care Provider [phone] Aichholz BACK STRIP MACHINE OPERATOR, Kathie Unavailable Umu Schultz Unavailable Unavailable ENGELER, G GOPAL Referring Unavailable AICHHOLZ, KAHTIE JAYE Primary Care Unavailable ENGELER, G GOPAL [...] Propensity to adverse reactions (disorder) [facility] Repository Medications Current Medications Medication Drug Class(es) Dates Sig (Normalized) Sig (Original) acetaminophen 325 mg / HYDROcodone bitartrate 5 mg oral tablet (2 sources) Opioid Agonist Start: 12-05-2024 HYDROcodone-aceta minophen (Spring) 5-325 MG tablet 12/05/2024 Active albuterol 0.83 [...] Status: Ordered take [address] [facility] every twenty-four hours in the [...] meals. 90 tablet 1 10/16/2024 01/14/2025 Active Gzxrgzchrgr-Bsbljgwj-Vhrvepz ac 1-0.5-0.075 % solution (1 source) Start: 01-02-2025 Qqukblawltq-Fowouaqx-Ggngeer ac 1-0.5-0.075 % solution Indications: Age-related nuclear [...] mL, Rectal, Once, 133 mL, Refill(s) 0, [facility]/pharmacy #[id number], 175, cm, 01/02/24 12:45:00 EST, [...] 02-28-2024 02-28-2024 Other aftercare (1 source) Other senior care (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 therapy; Translations: [OTH MOLD BUILDER CURRENT DRUG THERAPY] Onset: 08-13-2022 Episodic Other [...] made for both eyes (OU). [facility] Radiology Study observation (narrative) [facility] MHPT PSA, DIAGNOSTICon 12-05 Interpretation and review of laboratory results Abnormal [facility] PROSTATE SPECIFIC ANTIGEN DX 4.2 ng/mL High NINF - 4.00 ng/mL [facility] No Panel Informationon 12-05 [facility] CNOVon 11-02-2024 CNOV Office Visit (RADTSA ) JINNYMATEO MARSHALL ([id number]) 1960 M Date Time Provider Department 11/02/24 10:30 AM Severo DENT During your visit today, we recorded the following information about you: Temperature Pulse Respiration Blood pressure 98.4 degrees 100/minute 18/minute 118/82 Severo Dent MD 11/09/2024 11:44 AM Signed Radiation Oncology - On Treatment Review (OTR) Note PATIENT NAME: Mateo Stearns PATIENT DIAGNOSIS: Prostate adenocarcinoma, initial PSA 4.46, biopsy Richards score 3 + 3 = 6 (grade [...] Order(s):PROSTATE-SPE CIFIC ANTIGEN DIAGNOSTIC [SQPSA] Order #: [id number] FUTURE Prescriptions as of 11/09/2024 - predniSONE [...] Encounter Status:Closed by Severo DENT on 11/09/24 [facility] CNOVon 10-29-2024 CNOV Office Visit (RADTSA ) MATEO STEARNS ([id number]) 1960 M Date Time Provider Department 10/29/24 10:30 AM Severo DENT [facility] During your visit today, we recorded the [...] Encounter Status:Closed by Severo DENT on 10/29/24 [facility] CNOVon 10-22-2024 CNOV Office Visit (RADTSA ) MATEO STEARNS ([id number]) 1960 M Date Time Provider Department 10/22/24 [...] Encounter Status:Closed by Severo DENT on 10/22/24 [facility] 10-15-2024 CNOV Office Visit (RADTSA ) MATEO STEARNS ([id number]) 1960 M Date Time Provider Department 10/15/24 [...] Status:Closed by Severo DENT on 10/15/24 Normal [facility] CBC W Auto Differential pane l (Bld)on 10-11-2024 Basophils (Bld) [#/Vol] 0.04 10*3/uL [facility] Differential cell count method Nom (Bld) Auto [facility] Eosinophils (Bld) [#/Vol] 0.07 10*3/uL [facility] Immature granulocytes (Bld) [#/Vol] 0.16 10*3/uL High [facility] Immature granulocytes/100 WBC (Bld) 1.1 % [facility] Lymphocytes (Bld) [#/Vol] 1.10 10*3/uL [facility] Monocytes (Bld) [#/Vol] 0.45 10*3/uL [facility] Neutrophils (Bld) [#/Vol] 12.30 10*3/uL High [facility] Nucleated RBC (Bld) [#/Vol] [facility] Nucleated RBC/100 WBC (Bld) [Ratio] 0.0 % /100 WBC [facility] Platelet mean volume (Bld) [Entitic vol] 8.6 fL Low 9.0 - 12.7 fL [facility] Platelets (Bld) [#/Vol] 317 10*3/uL [facility] WBC (Bld) [#/Vol] 14.12 10*3/uL High [facility] Basophils (Bld) [#/Vol] 0.04 10*3/uL Normal <0.11 [facility] Comment on above: Order Comment: Speci men Type: BLOOD SPECIMENOrdering Facility: [facility] Address: [address] [place] [address] Performed By: #### 5 7021-8 ####[facility] LABCLIA [id number] [place] [address] Basophils/100 WBC (Bld) 0.3 % Normal [facility] Comment on above: Order Comment: Speci men Type: BLOOD SPECIMENOrdering Facility: [facility] Address: [address] [place] [address] Performed By: #### 5 7021-8 ####[facility] LABCLIA [id number] [place] [address] Differential cell count method Nom (Bld) Auto Normal [facility] Comment on above: Order Comment: Speci men Type: BLOOD SPECIMENOrdering Facility: [facility] Address: [address] [place] [address] Performed By: #### 5 7021-8 ####[facility] LABCLIA [id number] [place] [address] Eosinophils (Bld) [#/Vol] 0.07 10*3/uL Normal <0.46 [facility] Comment on above: Order Comment: Speci men Type: BLOOD SPECIMENOrdering Facility: [facility] Address: [address] [place] [address] Performed By: #### 5 7021-8 ####[facility] LABCLIA [id number] [place] [address] Eosinophils/100 WBC (Bld) 0.5 % Normal [facility] Comment on above: Order Comment: Speci men Type: BLOOD SPECIMENOrdering Facility: [facility] Address: [address] [place] [address] Performed By: #### 5 7021-8 ####[facility] LABCLIA [id number] [place] [address] Erythrocyte distribution width (RBC) [Ratio] 13.6 % Normal 11.5-15.0 [facility] Comment on above: Order Comment: Speci men Type: BLOOD SPECIMENOrdering Facility: [facility] Address: [address] [place] [address] Performed By: #### 5 7021-8 ####[facility] LABCLIA [id number] [place] [address] Hematocrit (Bld) [Volume fraction] 43.8 % Normal 39.0-51.0 [facility] Comment on above: Order Comment: Speci men Type: BLOOD SPECIMENOrdering Facility: [facility] Address: [address] [place] [address] Performed By: #### 5 7021-8 ####[facility] LABIA [id number] [place] [address] Hemoglobin (Bld) [Mass/Vol] 14.8 g/dL Normal 13.0-17.0 [facility] Comment on above: Order Comment: Speci men Type: BLOOD SPECIMENOrdering Facility: [facility] Address: [address] [place] [address] Performed By: #### 5 7021-8 ####[facility] LABCLIA [id number] [place] [address] Immature granulocytes (Bld) [#/Vol] 0.16 10*3/uL High <0.10 [facility] Comment on above: Order Comment: Speci men Type: BLOOD SPECIMENOrdering Facility: [facility] Address: [address] [place] [address] Performed By: #### 5 7021-8 ####[facility] LABCLIA [id number] [place] [address] Immature granulocytes/100 WBC (Bld) 1.1 % Normal [facility] Comment on above: Order Comment: Speci men Type: BLOOD SPECIMENOrdering Facility: [facility] Address: [address] [place] [address] Performed By: #### 5 7021-8 ####[facility] LABCLIA [id number] [place] [address] Lymphocytes (Bld) [#/Vol] 1.10 10*3/uL Normal 1.00-4.00 [facility] Comment on above: Order Comment: Speci men Type: BLOOD SPECIMENOrdering Facility: [facility] Address: [address] [place] [address] Performed By: #### 5 7021-8 ####[facility] LABCLIA [id number] [place] [address] Lymphocytes/100 WBC (Bld) 7.8 % Normal [facility] Comment on above: Order Comment: Speci men Type: BLOOD SPECIMENOrdering Facility: [facility] Address: [address] [place] [address] Performed By: #### 5 7021-8 ####[facility] LABCLIA [id number] [place] [address] MCH (RBC) [Entitic mass] 30.4 pg Normal 26.0-34.0 [facility] Comment on above: Order Comment: Speci men Type: BLOOD SPECIMENOrdering Facility: [facility] Address: [address] [place] [address] Performed By: #### 5 7021-8 ####[facility] LABCLIA [id number] [place] [address] MCHC (RBC) [Mass/Vol] 33.8 g/dL Normal 30.5-36.0 [facility] Comment on above: Order Comment: Speci men Type: BLOOD SPECIMENOrdering Facility: [facility] Address: [address] [place] [address] Performed By: #### 5 7021-8 ####[facility] LABIA [id number] [place] [address] MCV (RBC) [Entitic vol] 89.9 fL Normal 80.0-100.0 [facility] Comment on above: Order Comment: Speci men Type: BLOOD SPECIMENOrdering Facility: [facility] Address: [address] [place] [address] Performed By: #### 5 7021-8 ####[facility] LABIA [id number] [place] [address] Monocytes (Bld) [#/Vol] 0.45 10*3/uL Normal <0.87 [facility] Comment on above: Order Comment: Speci men Type: BLOOD SPECIMENOrdering Facility: [facility] Address: [address] [place] [address] Performed By: #### 5 7021-8 ####[facility] LABIA [id number] [place] [address] Monocytes/100 WBC (Bld) 3.2 % Normal [facility] Comment on above: Order Comment: Speci men Type: BLOOD SPECIMENOrdering Facility: [facility] Address: [address] [place] [address] Performed By: #### 5 7021-8 ####[facility] LABCLIA [id number] [place] [address] Neutrophils (Bld) [#/Vol] 12.30 10*3/uL High 1.45-7.50 [facility] Comment on above: Order Comment: Speci men Type: BLOOD SPECIMENOrdering Facility: [facility] Address: [address] [place] [address] Performed By: #### 5 7021-8 ####[facility] LABCLIA [id number] [place] [address] Neutrophils/100 WBC (Bld) 87.1 % Normal [facility] Comment on above: Order Comment: Speci men Type: BLOOD SPECIMENOrdering Facility: [facility] Address: [address] [place] [address] Performed By: #### 5 7021-8 ####[facility] LABCLIA [id number] [place] [address] Nucleated RBC (Bld) [#/Vol] 10*3/uL Normal <0.01 [facility] Comment on above: Order Comment: Speci men Type: BLOOD SPECIMENOrdering Facility: [facility] Address: [address] [place] [address] Performed By: #### 5 7021-8 ####[facility] LABCLIA [id number] [place] [address] Nucleated RBC/100 WBC (Bld) [Ratio] 0.0 /100 WBC Normal [facility] Comment on above: Order Comment: Speci men Type: BLOOD SPECIMENOrdering Facility: [facility] Address: [address] [place] [address] Performed By: #### 5 7021-8 ####[facility] LABIA [id number] [place] [address] Platelet mean volume (Bld) [Entitic vol] 8.6 fL Low 9.0-12.7 [facility] Comment on above: Order Comment: Speci men Type: BLOOD SPECIMENOrdering Facility: [facility] Address: [address] [place] [address] Performed By: #### 5 7021-8 ####[facility] LABCLIA [id number] [place] [address] Platelets (Bld) [#/Vol] 317 10*3/uL Normal 150-400 [facility] Comment on above: Order Comment: Speci men Type: BLOOD SPECIMENOrdering Facility: [facility] Address: [address] [place] [address] Performed By: #### 5 7021-8 ####[facility] LABIA [id number] [place] [address] RBC (Bld) [#/Vol] 4.87 10*6/uL Normal 4.20-6.00 [facility] Comment on above: Order Comment: Speci men Type: BLOOD SPECIMENOrdering Facility: [facility] Address: [address] [place] [address] Performed By: #### 5 7021-8 ####[facility] LABIA [id number] [place] [address] WBC (Bld) [#/Vol] 14.12 10*3/uL High 3.70-11.00 [facility] Comment on above: Order Comment: Speci men Type: BLOOD SPECIMENOrdering Facility: [facility] Address: [address] [place] [address] Performed By: #### 5 7021-8 ####[facility] LABIA [id number] [place] [address] [facility] CBC W AUTO DIFF BLDon [facility] BASOPHILS # BLD AUTO 0.04 [facility] DIFFERENTIAL METHOD BLD Auto [facility] EOSINOPHIL # BLD AUTO 0.07 [facility] LYMPHOCYTES # BLD AUTO 1.1 [facility] MONOCYTES # BLD AUTO 0.45 [facility] NEUTROPHILS # BLD AUTO 12.3 High [facility] NRBC # BLD AUTO <0.01 NINF [facility] NRBC/100 WBC BLD-RTO 0 /100 WBC [facility] PLATELET # BLD AUTO 317 [facility] PMV BLD AUTO 8.6 fL Low 9.0 - 12.7 fL [facility] WBC # BLD AUTO 14.12 High [facility] IMM GRANULOCYTES # BLD AUTO 0.16 High [facility] IMM GRANULOCYTES/LEUK NFR BLD AUTO 1.1 % [facility] Specimen Type: BLOOD SPECIMEN [facility] Address: [address] [place] [address] Original Ordering Provider: Severo DENT [facility] 10-11-2024 CNOV Office Visit (RADTSA ) MATEO STEARNS ([id number]) 1960 M Date Time Provider Department 10/11/24 [...] Dayanna Call LPN Referring Provider: Severo DENT [[id number]] Allergies As of Date: 10/11/2024 (No Known Allergies) Date Reviewed: 10/01/2024 Reviewed by: Mona Melvin, CARIDAD - Fully Assessed Visit Diagnosis:Malignant neoplasm of prostate (HCC) [C61] Order(s):COMPLETE BLOOD COUNT AND DIFFERENTIAL [SQCBCDIF] Order #: [id number]. #:[id number] Prescriptions as of 10/11/2024 - predniSONE (DELTASONE) [...] Status:Closed by DAYANNA CALL on 10/11/24 Normal [facility] Laboratory - Hematology and Cell countson 10-11-2024 Basophils/100 WBC (Bld) 0.3 % [facility] Eosinophils/100 WBC (Bld) 0.5 % [facility] Erythrocyte distribution width (RBC) [Ratio] 13.6 % 11.5 - 15.0 % [facility] Hematocrit (Bld) [Volume fraction] 43.8 % 39.0 - 51.0 % [facility] Hemoglobin (Bld) [Mass/Vol] 14.8 g/dL 13.0 - 17.0 g/dL [facility] Lymphocytes/100 WBC (Bld) 7.8 % [facility] MCH (RBC) [Entitic mass] 30.4 pg 26.0 - 34.0 pg [facility] MCHC (RBC) [Mass/Vol] 33.8 g/dL 30.5 - 36.0 g/dL [facility] MCV (RBC) [Entitic vol] 89.9 fL 80.0 - 100.0 fL [facility] Monocytes/100 WBC (Bld) 3.2 % [facility] Neutrophils/100 WBC (Bld) 87.1 % [facility] RBC (Bld) [#/Vol] 4.87 10*6/uL 4.20 - 6.0 0 m/uL [facility] No Panel Informationon 10-11 Interpretation and review of laboratory results Abnormal [facility] CNOVon 10-08-2024 CNOV Office Visit (RADTSA ) MATEO [id number]) 1960 M Date Time Provider Department 10/08/24 10:30 AM Severo DENT During your visit today, we recorded the following information about you: Temperature Pulse Respiration Blood pressure 96.7 degrees 103/minute 18/minute 165/76 Weight 68.6 kg Severo Dent MD 10/08/2024 2:18 PM Signed Radiation Oncology - On Treatment Review (OTR) Note PATIENT NAME: Mateo Stearns PATIENT DIAGNOSIS: Prostate adenocarcinoma, initial PSA 4.46, biopsy Richards score 3 + 3 = 6 (grade [...] BLOOD COUNT AND DIFFERENTIAL [SQCBCDIF] Order #: [id number] FUTURE Prescriptions as of 10/08/2024 - predniSONE [...] Status:Closed by Severo DENT on 10/08/24 Normal [facility] CBC W Auto Differential pane l (Bld)on 10-04-2024 Basophils (Bld) [#/Vol] 0.03 10*3/uL [facility] Differential cell count method Nom (Bld) Auto [facility] Eosinophils (Bld) [#/Vol] [facility] Eosinophils/100 WBC (Bld) 0.0 % [facility] Hemoglobin (Bld) [Mass/Vol] 15.0 g/dL 13.0 - 17.0 g/dL [facility] Immature granulocytes (Bld) [#/Vol] 0.10 10*3/uL High [facility] Immature granulocytes/100 WBC (Bld) 0.9 % [facility] Lymphocytes (Bld) [#/Vol] 1.30 10*3/uL [facility] Monocytes (Bld) [#/Vol] 0.40 10*3/uL [facility] Neutrophils (Bld) [#/Vol] 9.47 10*3/uL High [facility] Nucleated RBC (Bld) [#/Vol] [facility] Nucleated RBC/100 WBC (Bld) [Ratio] 0.0 % /100 WBC [facility] Platelet mean volume (Bld) [Entitic vol] 8.6 fL Low 9.0 - 12.7 fL [facility] Platelets (Bld) [#/Vol] 330 10*3/uL [facility] WBC (Bld) [#/Vol] 11.30 10*3/uL High [facility] Basophils (Bld) [#/Vol] 0.03 10*3/uL Normal <0.11 [facility] Comment on above: Order Comment: Speci men Type: BLOOD SPECIMENOrdering Facility: [facility] Address: [address] [place] [address] Performed By: #### 5 7021-8 ####[facility] LABCLIA [id number] [place] [address] Basophils/100 WBC (Bld) 0.3 % Normal [facility] Comment on above: Order Comment: Speci men Type: BLOOD SPECIMENOrdering Facility: [facility] Address: [address] [place] [address] Performed By: #### 5 7021-8 ####[facility] LABCLIA [id number] [place] [address] Differential cell count method Nom (Bld) Auto Normal [facility] Comment on above: Order Comment: Speci men Type: BLOOD SPECIMENOrdering Facility: [facility] Address: [address] [place] [address] Performed By: #### 5 7021-8 ####[facility] LABCLIA [id number] [place] [address] Eosinophils (Bld) [#/Vol] 10*3/uL Normal <0.46 [facility] Comment on above: Order Comment: Speci men Type: BLOOD SPECIMENOrdering Facility: [facility] Address: [address] [place] [address] Performed By: #### 5 7021-8 ####[facility] LABCLIA [id number] [place] [address] Eosinophils/100 WBC (Bld) 0.0 % Normal [facility] Comment on above: Order Comment: Speci men Type: BLOOD SPECIMENOrdering Facility: [facility] Address: [address] [place] [address] Performed By: #### 5 7021-8 ####[facility] LABCLIA [id number] [place] [address] Erythrocyte distribution width (RBC) [Ratio] 13.5 % Normal 11.5-15.0 [facility] Comment on above: Order Comment: Speci men Type: BLOOD SPECIMENOrdering Facility: [facility] Address: [address] [place] [address] Performed By: #### 5 7021-8 ####[facility] LABCLIA [id number] [place] [address] Hematocrit (Bld) [Volume fraction] 43.9 % Normal 39.0-51.0 [facility] Comment on above: Order Comment: Speci men Type: BLOOD SPECIMENOrdering Facility: [facility] Address: [address] [place] [address] Performed By: #### 5 7021-8 ####[facility] LABCLIA [id number] [place] [address] Hemoglobin (Bld) [Mass/Vol] 15.0 g/dL Normal 13.0-17.0 [facility] Comment on above: Order Comment: Speci men Type: BLOOD SPECIMENOrdering Facility: [facility] Address: [address] [place] [address] Performed By: #### 5 7021-8 ####[facility] LABCLIA [id number] [place] [address] Immature granulocytes (Bld) [#/Vol] 0.10 10*3/uL High <0.10 [facility] Comment on above: Order Comment: Speci men Type: BLOOD SPECIMENOrdering Facility: [facility] Address: [address] [place] [address] Performed By: #### 5 7021-8 ####[facility] LABCLIA [id number] [place] [address] Immature granulocytes/100 WBC (Bld) 0.9 % Normal [facility] Comment on above: Order Comment: Speci men Type: BLOOD SPECIMENOrdering Facility: [facility] Address: [address] [place] [address] Performed By: #### 5 7021-8 ####[facility] LABCLIA [id number] [place] [address] Lymphocytes (Bld) [#/Vol] 1.30 10*3/uL Normal 1.00-4.00 [facility] Comment on above: Order Comment: Speci men Type: BLOOD SPECIMENOrdering Facility: [facility] Address: [address] [place] [address] Performed By: #### 5 7021-8 ####[facility] LABCLIA [id number] [place] [address] Lymphocytes/100 WBC (Bld) 11.5 % Normal [facility] Comment on above: Order Comment: Speci men Type: BLOOD SPECIMENOrdering Facility: [facility] Address: [address] [place] [address] Performed By: #### 5 7021-8 ####[facility] LABCLIA [id number] [place] [address] MCH (RBC) [Entitic mass] 30.5 pg Normal 26.0-34.0 [facility] Comment on above: Order Comment: Speci men Type: BLOOD SPECIMENOrdering Facility: [facility] Address: [address] [place] [address] Performed By: #### 5 7021-8 ####[facility] LABCLIA [id number] [place] [address] MCHC (RBC) [Mass/Vol] 34.2 g/dL Normal 30.5-36.0 [facility] Comment on above: Order Comment: Speci men Type: BLOOD SPECIMENOrdering Facility: [facility] Address: [address] [place] [address] Performed By: #### 5 7021-8 ####[facility] LABIA [id number] [place] [address] MCV (RBC) [Entitic vol] 89.2 fL Normal 80.0-100.0 [facility] Comment on above: Order Comment: Speci men Type: BLOOD SPECIMENOrdering Facility: [facility] Address: [address] [place] [address] Performed By: #### 5 7021-8 ####[facility] [facility] [id number] [place] [address] Monocytes (Bld) [#/Vol] 0.40 10*3/uL Normal <0.87 [facility] Comment on above: Order Comment: Speci men Type: BLOOD SPECIMENOrdering Facility: [facility] Address: [address] [place] [address] Performed By: #### 5 7021-8 ####[facility] LABCLIA [id number] [place] [address] Monocytes/100 WBC (Bld) 3.5 % Normal [facility] Comment on above: Order Comment: Speci men Type: BLOOD SPECIMENOrdering Facility: [facility] Address: [address] [place] [address] Performed By: #### 5 7021-8 ####[facility] LABCLIA [id number] [place] [address] Neutrophils (Bld) [#/Vol] 9.47 10*3/uL High 1.45-7.50 [facility] Comment on above: Order Comment: Speci men Type: BLOOD SPECIMENOrdering Facility: [facility] Address: [address] [place] [address] Performed By: #### 5 7021-8 ####[facility] LABCLIA [id number] [place] [address] Neutrophils/100 WBC (Bld) 83.8 % Normal [facility] Comment on above: Order Comment: Speci men Type: BLOOD SPECIMENOrdering Facility: [facility] Address: [address] [place] [address] Performed By: #### 5 7021-8 ####[facility] LABCLIA [id number] [place] [address] Nucleated RBC (Bld) [#/Vol] 10*3/uL Normal <0.01 [facility] Comment on above: Order Comment: Speci men Type: BLOOD SPECIMENOrdering Facility: [facility] Address: [address] [place] [address] Performed By: #### 5 7021-8 ####[facility] LABCLIA [id number] [place] [address] Nucleated RBC/100 WBC (Bld) [Ratio] 0.0 /100 WBC Normal [facility] Comment on above: Order Comment: Speci men Type: BLOOD SPECIMENOrdering Facility: [facility] Address: [address] [place] [address] Performed By: #### 5 7021-8 ####[facility] LABCLIA [id number] [place] [address] Platelet mean volume (Bld) [Entitic vol] 8.6 fL Low 9.0-12.7 [facility] Comment on above: Order Comment: Speci men Type: BLOOD SPECIMENOrdering Facility: [facility] Address: [address] [place] [address] Performed By: #### 5 7021-8 ####[facility] LABCLIA [id number] [place] [address] Platelets (Bld) [#/Vol] 330 10*3/uL Normal 150-400 [facility] Comment on above: Order Comment: Speci men Type: BLOOD SPECIMENOrdering Facility: [facility] Address: [address] [place] [address] Performed By: #### 5 7021-8 ####[facility] LABCLIA [id number] [place] [address] RBC (Bld) [#/Vol] 4.92 10*6/uL Normal 4.20-6.00 [facility] Comment on above: Order Comment: Speci men Type: BLOOD SPECIMENOrdering Facility: [facility] Address: [address] [place] [address] Performed By: #### 5 7021-8 ####[facility] LABCLIA [id number] [place] [address] WBC (Bld) [#/Vol] 11.30 10*3/uL High 3.70-11.00 [facility] Comment on above: Order Comment: Speci men Type: BLOOD SPECIMENOrdering Facility: [facility] Address: [address] [place] [address] Performed By: #### 5 7021-8 ####[facility] LABCLIA [id number] [place] [address] [facility] CBC W AUTO DIFF BLDon [facility] BASOPHILS # BLD AUTO 0.03 [facility] DIFFERENTIAL METHOD BLD Auto [facility] EOSINOPHIL # BLD AUTO <0.03 [facility] LYMPHOCYTES # BLD AUTO 1.3 [facility] MONOCYTES # BLD AUTO 0.4 [facility] NEUTROPHILS # BLD AUTO 9.47 High [facility] NRBC # BLD AUTO <0.01 [facility] NRBC/100 WBC BLD-RTO 0 /100 WBC [facility] PLATELET # BLD AUTO 330 [facility] PMV BLD AUTO 8.6 fL Low 9.0 - 12.7 fL [facility] WBC # BLD AUTO 11.3 High [facility] Eosinophils/100 WBC (Bld) 0 % [facility] Hemoglobin (Bld) [Mass/Vol] 15 g/dL 13.0 - 17.0 g/dL [facility] IMM GRANULOCYTES # BLD AUTO 0.1 High [facility] IMM GRANULOCYTES/LEUK NFR BLD AUTO 0.9 % [facility] Specimen Type: BLOOD SPECIMEN [facility] Address: [address] [place] [address] Original Ordering Provider: Severo Mohan 10-04-2024 CNOV Office Visit (RADTSA ) MATEO STEARNS ([id number]) 1960 M Date Time Provider Department 10/04/24 [...] BLOOD COUNT AND DIFFERENTIAL [SQCBCDIF] Order #: [id number]. #:[id number] Prescriptions as of 10/04/2024 - predniSONE (DELTASONE) [...] 06/24/2024 Visit Notes: >> Dayanna Call LPN [facility] Oct 04, 2024 3:20 PM Status: [...] Status:Closed by DAYANNA CALL on 10/04/24 Normal [facility] Laboratory - Hematology and Cell countson 10-04-2024 Basophils/100 WBC (Bld) 0.3 % [facility] Erythrocyte distribution width (RBC) [Ratio] 13.5 % 11.5 - 15.0 % [facility] Hematocrit (Bld) [Volume fraction] 43.9 % 39.0 - 51.0 % [facility] Lymphocytes/100 WBC (Bld) 11.5 % [facility] MCH (RBC) [Entitic mass] 30.5 pg 26.0 - 34.0 pg [facility] MCHC (RBC) [Mass/Vol] 34.2 g/dL 30.5 - 36.0 g/dL [facility] MCV (RBC) [Entitic vol] 89.2 fL 80.0 - 100.0 fL [facility] Monocytes/100 WBC (Bld) 3.5 % [facility] Neutrophils/100 WBC (Bld) 83.8 % [facility] RBC (Bld) [#/Vol] 4.92 10*6/uL 4.20 - 6.0 0 m/uL [facility] No Panel Informationon 10-04 Interpretation and review of laboratory results Abnormal [facility] CNOVon 10-01-2024 CNOV Office Visit (RADTSA ) MATEO STEARNS ([id number]) 1960 M Date Time Provider Department 10/01/24 [...] Encounter Status:Closed by Severo DENT on 10/01/24 [facility] CNOVon 09-25-2024 CNOV Office Visit (RADTSA ) MATEO STEARNS ([id number]) 1960 M Date Time Provider Department 09/25/24 [...] Severo Dent MD Referring Provider: Severo DENT [[id number]] Allergies As of Date: 09/25/2024 (No Known [...] Encounter Status:Closed by Severo DENT on 09/26/24 [facility] Tracy 09-24-2024 SANDEE Telephone (ENRIQUEA) MATEO STEARNS ([id number]) 1960 M Date Time Provider Department 09/24/24 [...] BLOOD COUNT AND DIFFERENTIAL [SQCBCDIF] Order #: [id number] FUTURE Prescriptions as of 09/24/2024 - predniSONE [...] Encounter Status:Closed by DAYANNA CALL on 09/24/24 [facility] CNOVon 09-17-2024 CNOV Office Visit (CARI ) MATEO STEARNS ([id number]) 1960 M Date Time Provider Department 09/17/24 11:45 AM Severo DENT During your visit today, we recorded the following information about you: Referring Provider: Severo DENT [[id number]] Allergies As of Date: 09/17/2024 (No Known Allergies) Date Reviewed: 09/11/2024 Reviewed by: Dayanna Call LPN - Fully Assessed Reason for Visit: Simulation Request Form [8175] Primary Visit Diagnosis:Malignant neoplasm of prostate (HCC) [C61] Order(s):RADIATION TREATMENT PER RADIATION ONCOLOGIST PLAN [[id number]] Order #: [id number]: 1 PT ED CANCER [[id number]] Order #: [id number]: 1 CT SIM PLANNING RADIATION ONCOLOGY [[id number]] Order #: [id number] Prescriptions as of 09/17/2024 - predniSONE (DELTASONE) [...] Encounter Status:Closed by Severo DENT on 09/17/24 [facility] [place] 09-14-2024 SANDEE Telephone ([employer]) JINNYMATEO MARSHALL ([id number]) 1960 M Date Time Provider Department 09/14/24 [...] Encounter Status:Closed by MONA MELVIN on 09/14/24 [facility] CNOVon 09-11-2024 CNOV Office Visit (RADTSA ) MATEO STEARNS Schuyler ([id number]) 1960 M Date Time Provider Department 09/11/24 [...] DIAGNOSIS: Prostate adenocarcinoma, initial PSA 4.46, biopsy Richards score 3 + 3 = 6 (grade group 1), clinical stage T1c, N0, M0, stage I [cT1a-c/T2a, N0, M0, PSA <10, GG 1] (AJCC 8th ed.), s/p TRUS Random biopsy. HPI: Patient in for follow-up to discuss treatment options again. Laboratory: thesixtyone genomic risk score: 0.43 (low risk) PSA. [...] IMRT a (more content not included)... [facility], [facility]-07 Interpretation and review of laboratory results Abnormal [facility] PROSTATE SPECIFIC ANTIGEN DX 7.20 ng/mL High NINF - 4.00 ng/mL [facility] No Panel Informationon 09-07 [facility] CNOVon 07-12-2024 CNOV Office Visit (RADTSA ) MATEO STEARNS ([id number]) 1960 M Date Time Provider Department 07/12/24 [...] be checked (more content not included)... Normal [facility] CNOVon 06-21-2024 CNOV Office Visit (RADTSA ) MATEO STEARNS ([id number]) 1960 [place] Date Time Provider Department 06/21/24 [...] with prostate adenocarcinoma, initial PSA 4.46, biopsy Richards score 3 + 3 = 6 (grade [...] muscle aches (more content not included)... Normal [facility] CNOVon 06-01-2024 CNOV Office Visit (UROLMN ) MATEO STEARNS ([id number]) 1960 M Date Time Provider Department 06/01/24 1:45 PM AMANDEEP CRISOSTOMO URON During your visit today, we recorded the following information about you: Pulse Blood pressure Weight Height 88/minute 138/81 68 kg 1.753 m Amandeep Crisostomo MD 06/24/2024 4:18 PM Signed Referring Provider: Chief Complaint: Recently diagnosed CaP HPI: 63 year old male from [place], [place] with a PMHx of COPD (40 pack-year smoker), Afib (on ASA), and GERD diagnosed with CAP in 05/20 which showed 2 cores of Richards 6 disease. He has sever COPD with [...] review Assessment 63 year old male from [place], [place] with a PMHx of COPD (40 pack-year smoker and poor oxygenation status), Afib (on ASA), and GERD diagnosed with CAP in 05/20 which showed 2 cores of Richards 6 disease. Recently had more + cores on a repeat biopsy and is here (more content not included)... Normal [facility] URINALYSIS, REFLEX MICROSCOP ICon 06-01-2024 Bilirubin Ql (U) Negative Negative [facility] Clarity (Unsp spec) Clear Clear [facility] Color (U) Yellow Yellow [facility] Glucose Test strip (U) [Mass/Vol] Negative Negative [facility] Hemoglobin Ql (U) Negative Negative [facility] Interpretation and review of laboratory results Normal [facility] Ketones Ql (U) Negative Negative [facility] Leukocyte esterase Test strip Ql (U) Negative Negative [facility] Nitrite Ql (U) Negative Negative [facility] pH (U) 5.5 [pH] NINF - 8.5 [facility] Protein (U) [Mass/Vol] Negative Negative [facility] Specific gravity (U) [Rel density] 1.009 1.005 - 1.030 [facility] Urobilinogen Ql (U) 0.2 EU/dL 0.2-1.0 EU/dL [facility] This test was developed and its performance characteristics determined by [facility]'s Amandeep Derrick [place] [place] ([facility]). It has not been cleared or approved by the FDA. [facility] is regulated under CLIA as qualified to perform high-complexity testing. This test is used for clinical purposes. It should not be regarded as investigational or for research. [facility] Bilirubin Ql (U) Negative Normal Negative [facility] Comment on above: Order Comment: Speci men Type: URINE SPECIMENOrdering Facility: [facility] Address: [address] [place] [address] Performed By: #### L [id number] ####[facility] LABCLIA [id number] [place] [address] [place] Clarity (Unsp spec) Clear Normal Clear [facility] Comment on above: Order Comment: Speci men Type: URINE SPECIMENOrdering Facility: [facility] Address: [address] [place] [address] Performed By: #### L [id number] ####[facility] LABCLIA [id number] [place] [address] [place] Color (U) Yellow Normal Yellow [facility] Comment on above: Order Comment: Speci men Type: URINE SPECIMENOrdering Facility: [facility] Address: [address] [place] [address] Performed By: #### L [id number] ####[facility] LABCLIA [id number] [place] [address] [place] Glucose Test strip (U) [Mass/Vol] Negative Normal Negative [facility] Comment on above: Order Comment: Speci men Type: URINE SPECIMENOrdering Facility: [facility] Address: [address] [place] [address] Performed By: #### L [id number] ####[facility] LABCLIA [id number] [place] [address] [place] Hemoglobin Ql (U) Negative Normal Negative [facility] Comment on above: Order Comment: Speci men Type: URINE SPECIMENOrdering Facility: [facility] Address: [address] [place] [address] Performed By: #### L [id number] ####[facility] LABCLIA [id number] [place] [address] [place] Ketones Ql (U) Negative Normal Negative [facility] Comment on above: Order Comment: Speci men Type: URINE SPECIMENOrdering Facility: [facility] Address: [address] [place] [address] Performed By: #### L [id number] ####[facility] LABCLIA [id number] [place] [address] [place] Leukocyte esterase Test strip Ql (U) Negative Normal Negative [facility] Comment on above: Order Comment: Speci men Type: URINE SPECIMENOrdering Facility: [facility] Address: [address] [place] [address] Performed By: #### L [id number] ####[facility] LABCLIA [id number] [place] [address] [place] Nitrite Ql (U) Negative Normal Negative [facility] Comment on above: Order Comment: Speci men Type: URINE SPECIMENOrdering Facility: [facility] Address: [address] [place] [address] Performed By: #### L [id number] ####[facility] LABCLIA [id number] [place] [address] [place] pH (U) 5.5 [pH] Normal <8.5 [facility] Comment on above: Order Comment: Speci men Type: URINE SPECIMENOrdering Facility: [facility] Address: [address] [place] [address] Performed By: #### L [id number] ####[facility] LABCLIA [id number] [place] [address] [place] Protein (U) [Mass/Vol] Negative Normal Negative [facility] Comment on above: Order Comment: Speci men Type: URINE SPECIMENOrdering Facility: [facility] Address: [address] [place] [address] Performed By: #### L [id number] ####[facility] [id number] [address] [place] [facility] Specific gravity (U) [Rel density] 1.009 Normal 1.005-1.030 [facility] Comment on above: Order Comment: Speci men Type: URINE SPECIMENOrdering Facility: [facility] Address: [address] [place] [address] Performed By: #### L [id number] ####[facility] [id number] [address] [place] Urobilinogen Ql (U) 0.2 EU/dL Normal 0.2-1.0 EU/dL [facility] Comment on above: Order Comment: Speci men Type: URINE SPECIMENOrdering Facility: [facility] Address: [address] [place] [address] Performed By: #### L [id number] ####[facility] [id number] [address] [place] Ambulatory Visit Summaryon 0 [...] [facility] [address], [place] [phone] Someone Will Contact You Regarding These Appointments [facility] External Ambulatory Referral, Other (needs to be [...] (more content not included)... Normal [facility] Patient Educationon 05-21-20 Patient Education Oncology [...] likelihood that the cancer will spread. ? Richards 6 or lower: This indicates that the cancer cells look similar to normal prostate cells (well differentiated). ? Brenden 7: This indicates that the cancer cells look somewhat similar to normal prostate cells (moderately differentiated). ? Richards 8, 9, or 10: This indicates that [...] (more content not included)... Normal [facility] Urology Office/Clinic Noteon 05-21-2024 Urology Office/Clinic [...] 10%. 2 HGPINs. S/p TRUS/bx 05/01/24 - Richards 6 (3+3) in 9/12 cores. 30% core [...] [facility] [address], [place] [phone] Additional Instructions: referral to [facility] to discuss [...] zoste (more content not included)... Normal [facility] Comment on above: Result Comment: Elec tronically Signed By: Rufina VORA MD\.br\Date and Time Signed: 05/21/24 12:44 EDT\.br\Electronically Co-Signed By: Vesta Cortes\.br\Date and Time Co-Signed: 05/21/24 12:43 EDT Coding Summary.on 05-17-2024 Coding Summary. KQDJNhuk94XNp3uNq+PG h lYWQ+WE6APAPdT26xnRWy rG8mW6JRMVuWFxprYZEZA IqJSoTvoyZjJT9wsKKtEA Ju IC8+DT8kSXIqFqwglHBui 0U2cLL1X41itm8gBGmtaM Q5BRWaBbDymhoek3smoGy 6IDcuNmluOyBt WUVzuF64POX2uR45Om37c KFpuOZox6jrnPl5RbFbJK NbYAL2gBlkPWsmv0ZyZMC gN87skLImj7X6 OMKtmGiddIHrNeFrpKS3k Q9mPUfdzjkfg5wgmbfuVd i3wv41nWFjg3T0jLI6C1G fvvR9FMXxbRCl ZtookLFUcR7ymmasa1qph xmbHmIpNHOqPZw2SLb4WN EpoZzgApIuWD31LTX8KCP cwpWaF8TsGOYt oSmxIlA7v1J8Bi1LW5FLT toiQ9MBSDOZMDlbdDA+PC 90ju27A6OtQzhgIsk5COC xAOH9fKC8eW8i PNFjGPhis4E3uTW9W7Tqo pHhhu8jz1rwVCJsQXrmR5 2zpOLae1F5ZNJlgRL2GCS enQhfOwNnfJ69 Oyc+RGFbqAasd5VfTcpoa 1ttd0zkdDp7WahfJFSuwh LxbXccQZN7m4KaBm1sGSN emAM8uEX9eE2n LlEpVjM9GPepA725PrYpd YFfDbanL88fQ9NhaSR+PH LmNpw3SJVguKtyMX3aB4X hZGRpbmctbGVm xWvwAB1vJDIzrumzOQLhc Q6uBKXgO0t8AzEaZqV0DO fhC6JdDLRzgatkCt14dH1 uQlBdNsK7QTjb U0DlnaE1VWCpxVIjVWxdL QT2U02rx6R5KRDiZWKrQS N5oUV4vX9qhQbfetcuyPB mdDsgdmVydGlj HCgtBVoaF941YGNcsPtuL kNvZGluZyBEYXRlOiAgMD YvMjAvMjAyNDwvdGQ+PHR gZJM5bPpfCMTg sLTbKUlaUi8hlQaapPlrX T5dTBOsplnfVXVjdY4aLR TpoAMfgEutAR8cNFRwwbh jt697WbHiBFL4 DHOqqAZdL9EiaZ9yDcZmJ CTsGQUeZ9YnqAPcQLbsW2 27LHmgVfS8VQOohhQeU0F sLWFsaWduOiB0 p5F1Ai7Sd2SvvmynT3Pmg ODlApLlKxwtRQf6C2RxVb wvdHI+XU96PCQrAV86XWp 0CSM3nDvzRPuq FBQaD6QweG9qQnLsDHYxP GRkOyc+PHRhYmxlIHdpZH RoPScxMDAlJyBzdHlsZT0 hWx6uXKNpRRTu yMqieMQvSpUkw2kqGQOgA RmhEJ8zcJocT9WwdBJ5WR Dcu0g4Lh04B13yX1BbsYX +DSQfrTE3pEF4 gP3tVjQkFdB3KCvoB559M kSoqGIdQhuxm8oai3afiU u5EwT4HJBdcdMgdLieNTN 4b2DsSc58T07q IHdpZHRoPSIxNSUiIHZhb Zijix8jlU1fSc5+PGNvbC W6qVH4wN6xXvTgIwU0ZQy dO708XrCblVOd Gsywa3djl2naeHm0StNhE EOjxnEenIdvSKD8t1WzNv 92T1RmpOyut2SpBrq9zc3 3zHBmj0W5aZW9 T3XzGSGvyvqivIZbkNaaW S2dJEEaxtzfYTQhyA4fAQ NzN0f7BsQqOkC3OXtrW8P yuiF0GHIhfTWx BXSkvMWJfJ4pkyxvs1lcj hhvKjLgFUByAKt0RAe5PD ViuIkmDeAbRGJ8NaJ0LHX 6fPQpxT6lgFzt lheqtR9cMne+NLB6nYFep QRPXA5pBepbwYJ+PHRkIH T7pXisBOayDHMveO9nEBX sZ9b2OjAuYxC0 KTboT8IpfeM0TYLhwXApO IRddBUNyV6nnuxxq0mzpx avUuKgBOXnVGd1CAr9UIU saWduOiBsZWZ0 AuB4EAB9sGIjeV9daIkbp qbimC1kZtz+QmlydGggRG K4XRy9N0HpYir7TAKmiDi tEO7ouWWyAGqb Hi4vzKzmwVcnTI3wXKBmb pnmz130EwDzv6avGPDadA HnCSlvBYO9P43xy8O6PYE rRTYzXDG2kMM4 rU6itCtokinnyEEyqYxqe qVihFyzHCnnGKpxC801NI AhpOlqQaHdFSm1E3LvFqb 5WGXpbNvjXT5a cWLnQYmkWe0jmDdxjOuoM D2wMLFnhspxd807TtXfh1 osEHNsnAZeEDnzPKN3K04 mz0U7XRDdKRUk VVD1gYN4tP8ypZeeepgsq GVmdDsgdmVydGljYWwtYW lgB639XKVwpAibAgLnzUd 8V6KkOvn9DLBz jQsyOG5edPNnJCuhVt1ax EvdxUwrYZ4pZENrzjllh9 55CuDzb0gsGGFzyCOfPMs gSMZ9J00be9S6 FZErPLSmXJP0kNP6zA3ca GlnbjogbGVmdDsgdmVydG hoVOhdPWuaW429YKYrpHz nPlBhdGllbnQg PDkoFDh7A7RxBqxxyEQ+P V90MOSdCU30eFDlfNUyv1 ybeJo7SjZaWBSzBMB3hZv fHDfnz9JrRDRa Q78nqUJyt6H5FGPbkOizq QGtVyHdjVC5lQ9tNTprcu net7etchdnSuxln1wvgl4 2cL05Z63eCQew ZHRoPSIzMCUiIHZhbGlnb r4gsU9lNl4+EHBysAR5oK I8rV2wCGFuFcW4ANgvD26 9InRvcCIvPjxj q1bkd1jgfXy7NjB2LAJbf eTsoYixJDV7b5MqCa65Z0 9sIHdpZHRoPSIyMCUiIHZ sdVnxrk5xkZ8e Ii8+FXPezVB5aFL1wO5zP jInVyA9NHyhS437HjHegS PhHnymI63jB6MdgDN+PHR rTvy4KKHwqKcp BY8byTYiCKaeWg1uWCP1B tOtRnWxEWquY1OmFCHrwc qrxsoudBA1NZOqAEZpcZ7 6Pd3ciPhzJEMo yUDZmQ7nflizx6vpknsoM iBzXMJcYMr2ZCs6BEPgwC hgAhBcDNY6BaM8CRP1lRA riS1gpXruzmjm bU7cU1DsTIZglenxDp19i G6mKiFxYtO8SXznKdk+SE 8RCBhvF1pNOWXRM3HLANX gVzwvdGQ+PHRk UHC6gMkyUNwtIXXydR0xJ MDfC2r4SyHgEoO1HZoqN2 MoIWKznkzjCo87tR4jQbA aEkB8TSivA3Lb vcC4PTQiwSYeHKlvWLQ5P 07jd9B1VQGyBMUfYOU6iH O8xV4wbMnlnzmlcPRghKj gdmVydGljYWwt ZAnkJ291SATshItbSlP0M vF8HcH2KSl3K6HhWms1ZK SriRglHV0umMMtOTcpBy4 otAffuZsrWD7s JFJkxabgUDWbjC6aOYMyl RUypFcmQS1uFYDilasnq4 62FtKcTOQ9LZOxwJMeG3X feD3rMbEfTNQf ZARfW4VacBMlZVnhA744X XgtHmY4VWXocsIfS3UcSR QnkBodPgA1e7K8Gb76YMF ZZWFyczwvdGQ+ RSIfNET1hYueWOaxDTOce H1hSCSpJ4w5IjCcJhL3BS ecV2ZqRYMdhhnhHb31sY3 lUhHxJyO0JWvb H1DqprZ6FXMdhGLbTYusZ DV5A94gc5E5KSDaUPIzRJ Y7vMS1zJ5ksIwuurkreIB mdDsgdmVydGlj QVleDHehN495UYPzyMjhK t4cgWK9U6XcKco5ABOjpW gdGR3qcDGvEOpsNd8fiHs caPlrNH5jWKJt foqoDVGyfI8yDRHqwWVpe GmoGR1pYKXkuniuz982Vx VvUEI8JRYdbHIyJ6NonB5 yOiAjMDAwMDAw B4BbmIVuPBwkY859ANflJ aV2SPMnzdMyS2TbGBUujA dhRkP7n8K3Mj4DbCJbLAV bCW27JU06FK01 U9CjCykmoZWaqUQ+PHRhY mxlIHdpZHRoPScxMDAlJy YofTmaOQ7tKt0sGZPiMWE vbGxhcHNlOiBj p9haHNQgBVuqOO0fdOupT 3GmbDE0YCJlx7q5Kt89A4 0tG1AlqBH+AYZkiHM8xBG 4bI2oUxPaGkJ5 AFuwH201ZjFgaUOiUbybb 6bfg5ejlYl2GdZyHIOdqh LfdRvmXQE5q2JsDw19L56 sIHdpZHRoPSIy EGBeNMQipVmzvs6yiT4kW i8+YMHgwMD6fRN6eH8lYg JsJuL5ITbqT260JqQoiAS dIkuqR68eC4Gq dXA+TIMpTjd7BLGxaYhyP Z5rgDWzDRtbCb7zZCF9Vn GwFzKbLXvcD0ArMECdorg mrirotLZ9POSh GUUkpZ29Kb5xbBjeHw5dE JRcRGT9EVMpnCJoW2VjqN 3jPuDcPELfDVEzP9WntHB fCHkzM633FSzg UgN2SQYqryAkD7ToEGZcl VtqRlD6w0E9Lh2SjHfahJ AuJH2nLxLkFCa2G5XiHwv 2AAUkwJkmEY3f tJAlGCkxXt4anWqztAccO C8wFAIbstqhc808IfYut5 qaDXVnuTQoWAwqAAY0N89 dv0N7GBJhXRXz ORK4sXW8vH9tyHzbvdvyv GVmdDsgdmVydGljYWwtYW rwT899GGPriPniStXAGzh 1H4IcZih4GOLp xVnbNA4rrISeTYpaRw2am RolgCdrFS2wLOHdwslyo5 64ToJuo4kpIFCrbGZlGYr zZNH0X62dj9F8 HOLoIOBaDFD0lSK7cV5do GlnbjogbGVmdDsgdmVydG dlOGepGYhkR636RSUtnYx yLy2NFfo8K7Zz Vbu3XBAnaPwzHU1neMKmZ DnlDr8ljOhflLhiIC9iWA Ozuuwsa196HkBkn4pvEKP wcHQgVGltZXM7 N60zh7W6SGAaBVEsFWV7m SZ5kL5ekYmcrxgqcUBtsW scrkIwmYonOMbuDMvxB49 6IHRvcDsnPlBh eWVyOjwvdGQ+NR42qb09L 7XxNvjaVhm1MJGxHMW3gB U8eU6qBYLkJUkvr4M0yLE 5N5KbyfLufj1g t2tzNFHbVNjgH (more content not included)... Normal [facility] Prostate Histology ([facility]) on 05-16-2024 Prostate Histology Diagnosis Info Invalid Interpretation Code [facility] Comment on above: Order Comment: left [...] Interpretation - - Acinar adenocarcinoma of prostate; Richards score 6(3+3); Tumor measures 0.1 cm in length; 6% of the core involved by tumor; 1 of 1 core involved; Perineural invasion not identified. MicroScopic Description - E:Prostate,Left Lateral [employer]:Needle Biopsy Interpretation - - Atypical glands suspicious but not diagnostic for adenocarcinoma. MicroScopic Description - F:Prostate,Left [employer]:Needle Biopsy Interpretation - - Benign prostatic tissue. MicroScopic Description - G:Prostate,Right Base:Needle Biopsy Interpretation - - Benign prostatic tissue. MicroScopic Description - H:Prostate,Right Lateral Base:Needle Biopsy Interpretation - - Benign prostatic tissue. MicroScopic Description - I:Prostate,Right Mid:Needle Biopsy Interpretation - - Benign prostatic tissue. MicroScopic Description - J:Prostate,Right Lateral Mid:Needle Biopsy Interpretation - - Benign prostatic tissue. MicroScopic Description - K:Prostate,Right [employer]:Needle Biopsy Interpretation - - Benign prostatic tissue. MicroScopic Description - L:Prostate,Right Lateral [employer]:Needle Biopsy Interpretation - - Benign prostatic tissue. [...] invasion not identified. MicroScopic Description - Q:Prostate,Left [employer]:Needle Biopsy Interpretation - - Acinar adenocarcinoma of prostate; Brenden score 6(3+3); Tumor measures 0.1 cm in length; 3% of the core involved by tumor; 1 of 2 cores involved; MicroScopic Description - R:Prostate,Left [employer]:Needle Biopsy Interpretation - - Benign prostatic tissue. MicroScopic Description - Gross Description Site ID:A color rivera-white fixative Formalin cores 1 units cm Site ID:B color rivera-white fixative Formalin cores 1 units cm Site ID:C color rievra-white fixative Formalin cores 2 units cm Site [...] on: 05/16/2024 11:46:32 Performed By: #### [id number] #### [address] [address] Consent for Procedure/Surger yon 05-01-2024 Consent for Procedure/Surgery [id number] Normal [facility] Consent for Treatmenton Consent for Treatment [id number] Normal [facility] IntraOperative Documentson 0 05-01-2024 IntraOperative Documents [id number] .00TIFF Vikki [facility] Main OR Intraoperative Recor don 05-01-2024 Main OR Intraoperative Record IntraOp Document Type FTURO Summary Primary Physician: Rufina VORA MD Finalized Date/Time: 05/01/24 12:17:31 Pt. Name: MATEO STEARNS /Sex: 1960 Male Med Rec #: [id number] Physician: Rufina VORA MD Financial #: [id number] Pt. Type: O Room/Bed: / Admit/Disch: 05/01/24 [...] Diana Whitlock Role Performed Surgeon - Primary Chemical Recovery Operator - Primary Scrub - Primary Time In [...] Wong RN 05/01/24 12:17 Normal [facility] Main OR Preoperative Recordo n 05-01-2024 Main OR Preoperative Record Holding Area Document Type FTURO Summary Primary Physician: Rufina VORA MD Finalized Date/Time: 05/01/24 11:27:32 Pt. Name: JINNY ALIARAJANIHEMA Breen/Sex: 1960 Male Med Rec #: [id number] Physician: Rufina VORA MD Financial #: [id number] Pt. Type: O Room/Bed: / Admit/Disch: 05/01/24 10:18:15 - Institution: Case Times Holding FTURO Pre-Care Text: Verifies consent for planned procedure, identifies individual values and wishes concerning care, includes family members in perioperative teaching Secures patient's records' belongings, and valuables, maintains patient's dignity and privacy, and maintains patient confidentiality Entry 1 In Holding 05/01/24 11:21:00 Outcomes Met? Yes Last Modified By: MICA iKmball RN, Ruthann 05/01/24 11:21:12 Post-Care Text: The [...] Kimball RN, Kinjal 05/01/24 11:27 Normal [facility] Operative Reporton Operative Report Patient: [...] total biopsies were taken. Normal [facility] Comment on above: Result Comment: Elec tronically Signed By: DIONY CHANDLER, Rufina Arrington\Date and Time Signed: 05/01/24 12:04 EDT Outpatient Surgery Discharge Instructionon 05-01-2024 Outpatient Surgery Discharge Instruction [id number] .[id number] Normal [facility] Patient Educationon 05-01-20 Patient Education Custom [...] for your post-operative appointment in 1-2 weeks [phone] or [phone] Normal [facility] Prostate Histology ([facility]) on 05-01-2024 PH Method of Extraction Needle Biopsy Normal [facility] Comment on above: Order Comment: left base x 3 bites Left lateral mid x 3 bites Left apex x 4 bites Performed By: #### 1 [id number] #### [facility] [address] [place] [address] PH Number of Jars 3 Invalid Interpretation Code [facility] Comment on above: Order Comment: left base x 3 bites Left lateral mid x 3 bites Left apex x 4 bites Performed By: #### 1 [id number] #### [facility] [address] [place] [address] PH Specimen 1 L Apx Prostate Normal [facility] Comment on above: Order Comment: left base x 3 bites Left lateral mid x 3 bites Left apex x 4 bites Performed By: #### 1 [id number] #### [facility] [address] [place] [address] PH Specimen 10 R Lat Bse Prost Normal [facility] Comment on above: Order Comment: left base x 3 bites Left lateral mid x 3 bites Left apex x 4 bites Performed By: #### 1 [id number] #### [facility] [address] [place] [address] PH Specimen 11 R Lat Mid Prost Normal [facility] Comment on above: Order Comment: left base x 3 bites Left lateral mid x 3 bites Left apex x 4 bites Performed By: #### 1 [id number] #### [facility] [address] [place] [address] PH Specimen 12 R Lat Apx Prost Normal [facility] Comment on above: Order Comment: left base x 3 bites Left lateral mid x 3 bites Left apex x 4 bites Performed By: #### 1 [id number] #### [facility] [address] [place] [address] PH Specimen 2 L Base Prostate Normal [facility] Comment on above: Order Comment: left base x 3 bites Left lateral mid x 3 bites Left apex x 4 bites Performed By: #### 1 [id number] #### [facility] [address] [place] [address] PH Specimen 3 L Lat Apx Prost Normal [facility] Comment on above: Order Comment: left base x 3 bites Left lateral mid x 3 bites Left apex x 4 bites Performed By: #### 1 [id number] #### [facility] [address] [place] [address] PH Specimen 4 L Lat Bse Prost Normal [facility] Comment on above: Order Comment: left base x 3 bites Left lateral mid x 3 bites Left apex x 4 bites Performed By: #### 1 [id number] #### [facility] [address] [place] [address] PH Specimen 5 L Lat Mid Prost Normal [facility] Comment on above: Order Comment: left base x 3 bites Left lateral mid x 3 bites Left apex x 4 bites Performed By: #### 1 [id number] #### [facility] [address] [place] [address] PH Specimen 6 L Mid Prostate Normal [facility] Comment on above: Order Comment: left base x 3 bites Left lateral mid x 3 bites Left apex x 4 bites Performed By: #### 1 [id number] #### [facility] [address] [place] [address] PH Specimen 7 R Apx Prostate Normal [facility] Comment on above: Order Comment: left base x 3 bites Left lateral mid x 3 bites Left apex x 4 bites Performed By: #### 1 [id number] #### [facility] [address] [place] [address] PH Specimen 8 R Base Prostate Normal [facility] Comment on above: Order Comment: left base x 3 bites Left lateral mid x 3 bites Left apex x 4 bites Performed By: #### 1 [id number] #### [facility] [address] [place] [address] PH Specimen 9 R Mid Prostate Normal [facility] Comment on above: Order Comment: left base x 3 bites Left lateral mid x 3 bites Left apex x 4 bites Performed By: #### 1 [id number] #### [facility] [address] [place] [address] PH Type of Service Technical Only Normal [facility] Comment on above: Order Comment: left base x 3 bites Left lateral mid x 3 bites Left apex x 4 bites Performed By: #### 1 [id number] #### [facility] [address] [place] [address] Patient Educationon 01-02-20 Patient Education Oncology Transrectal [...] near your rectum, especially while sitting. ? Nevis-colored urine due to small amounts of blood in your urine. ? A burning feeling while urinating. ? Blood in your stool (feces) or bleeding from your rectum. ? Blood in your semen. Follow these instructions at home: Medicines ? Take ilur-zeh-xavotux and prescription medicines only as told by [...] provider. Document Revised: 05/10/2022 Document Reviewed: 05/10/2022 [employer] Patient Education ? 2022 [facility] [facility]. Transrectal Ultrasound-Guided Prostate Biopsy A transrectal ultrasound-guided [...] including vitamins, herbs, eye drops, creams, and aacu-vun-nyekcaq medicines. ? Any problems you or family [...] (more content not included)... Normal [facility] Urology Office/Clinic Noteon 01-02-2024 Urology Office/Clinic [...] of prostate cancer. S/p TRUS/bx 05/17/23 - Richards score 6 (3+3) in 2 cores each [...] Reina, URL [facility] [address] [place] [phone] Additional Instructions: sched repeat TRUS/bx Patient Education [...] (more content not included)... Normal [facility] Comment on above: Result Comment: Elec tronically Signed By: Rufina VORA MD\.br\Date and Time Signed: 01/02/24 13:53 EST\.br\Electronically Co-Signed By: Vesta Cortesbr\Date and Time Co-Signed: 01/02/24 13:52 EST Lab Reportson 12-01-2023 Lab Reports [id number] .00TIFF [facility] Ambulatory Visit Summaryon 0 06-06-2023 Ambulatory Visit Summary MATEO STEARNS :1960 Visit Date:06/06/2023 Ambulatory Visit Instructions Your Diagnosis Prostate cancer Sebaceous cyst Tests Performed Urnls Dip Stick Auto w/o Microscopy POC 73789 Your Care Team Attending Physician - Rufina [...] CHANDLER, Rufina Reina Where: [facility] Patient Educationon 06-06-20 23 Patient Education Oncology [...] under a microscope. This is called the Richards score and the total score can range from 6?10, indicating how likely it is that the cancer will spread (metastasize) to other parts of the body. The higher the score, the greater the likelihood that the cancer will spread. ? Richards 6 or lower: This indicates that the [...] (more content not included)... Normal [facility] Urology Office/Clinic Noteon 06-06-2023 Urology Office/Clinic [...] 04/08/23 - 4.46 S/p TRUS/bx 05/17/23 - Bernden score 6 (3+3) in 2 cores each [...] [facility] [address], [place] [phone] Additional Instructions: PSA and ANNE-MARIE Patient Education [...] (more content not included)... Normal [facility] Comment on above: Result Comment: Elec tronically Signed By: Rufina VORA MD\.br\Date and Time Signed: 06/06/23 11:52 EDT\.br\Electronically Co-Signed By: Vesta Cortes\.br\Date and Time Co-Signed: 06/06/23 11:47 EDT PSA, FREE AND TOTAL RATIOon 04-13-2023 % Free PSA 12.1 % Normal [facility] Comment on above: Result Comment: The table [...] By: #### H ISTGAL #### [facility] [address] [place] [address] Dr. James Crowley Prostate specific Ag [Mass/Vol] 3.4 ng/mL Normal 0.0-4.0 [facility] Comment on above: Result Comment: Rosa Elena edwards ECLIA methodology. . According to the [employer], Serum PSA should decrease and [...] By: #### H ISTGAL #### [facility] [address] [place] [address] Dr. James Crowley PSA, Free 0.41 ng/mL Normal N/A [facility] Comment on above: Result Comment: Rosa Elena DESHPANDE methodology. Performed By: #### H ISTGAL #### [facility] [address] [place] [address] Dr. James Crowley CBC AUTO DIFFon 04-08-2023 BASO # 0.1 103/ul Normal 0.0-0.1 [facility] Comment on above: Performed By: #### C BC #### [facility] [address] [place] [address] Dr. James Crowley Basophils/100 WBC (Bld) 0.5 % Normal 0.2-2.0 [facility] Comment on above: Performed By: #### C BC #### [facility] [address] [place] [address] Dr. James Crowley EO # 0.1 103/ul Normal 0.0-0.7 [facility] Comment on above: Performed By: #### C BC #### [facility] [address] [place] [address] Dr. James Crowley Eosinophils/100 WBC (Bld) 1.3 % Normal 0.9-7.0 [facility] Comment on above: Performed By: #### C BC #### [facility] [address] [place] [address] Dr. James Crowley Erythrocyte distribution width (RBC) [Ratio] 13.5 % Normal 11.0-15.0 [facility] Comment on above: Performed By: #### C BC #### [facility] [address] [place] [address] Dr. James Crowley Hematocrit (Bld) [Volume fraction] 48.4 % Normal 42.0-54.0 [facility] Comment on above: Performed By: #### C BC #### [facility] [address] [place] [address] Dr. James Crowley Hemoglobin (Bld) [Mass/Vol] 15.6 g/dL Normal 14.0-18.0 [facility] Comment on above: Performed By: #### C BC #### [facility] [address] [place] [address] Dr. James Crowley IG # 0.08 10e3/ul Critically high 0.00-0.03 [facility] Comment on above: Performed By: #### C BC #### [facility] [address] [place] [address] Dr. James Crowley IG % 0.8 % Critically high 0.0-0.5 [facility] Comment on above: Performed By: #### C BC #### [facility] [address] [place] [address] Dr. James Crowley LYMPH # 3.1 103/ul Normal 1.2-3.8 [facility] Comment on above: Performed By: #### C BC #### [facility] [address] [place] [address] Dr. James Crowley Lymphocytes/100 WBC (Bld) 29.8 % Normal 20.5-60.0 [facility] Comment on above: Performed By: #### C BC #### [facility] [address] [place] [address] Dr. James Crowley MANUAL DIFF REQ NO Normal [facility] Comment on above: Performed By: #### C BC #### [facility] [address] [place] [address] Dr. James Crowley MCH (RBC) [Entitic mass] 29.3 pg Normal 25.9-34.0 [facility] Comment on above: Performed By: #### C BC #### [facility] [address] [place] [address] Dr. James Crowley MCHC (RBC) [Mass/Vol] 32.2 g/dL Normal 29.9-35.2 [facility] Comment on above: Performed By: #### C BC #### [facility] [address] [place] [address] Dr. James Crowley MCV (RBC) [Entitic vol] 90.8 fL Normal 80.0-94.0 [facility] Comment on above: Performed By: #### C BC #### [facility] [address] [place] [address] Dr. James Crowley MONO # 0.6 103/ul Normal 0.3-0.8 [facility] Comment on above: Performed By: #### C BC #### [facility] [address] [place] [address] Dr. James Crowley Monocytes/100 WBC (Bld) 5.9 % Normal 1.7-12.0 [facility] Comment on above: Performed By: #### C BC #### [facility] [address] [place] [address] Dr. James Crowley NEUT # 6.4 103/ul Normal 1.4-6.5 [facility] Comment on above: Performed By: #### C BC #### [facility] [address] [place] [address] Dr. James Crowley Neutrophils/100 WBC (Bld) 61.7 % Normal 43.0-75.0 [facility] Comment on above: Performed By: #### C BC #### [facility] [address] [place] [address] Dr. James Crowley Platelet mean volume (Bld) [Entitic vol] 9.1 fL Critically low 9.5-13.5 [facility] Comment on above: Performed By: #### C BC #### [facility] [address] [place] [address] Dr. James Crowley PLT 320 103/ul Normal 150-450 [facility] Comment on above: Performed By: #### C BC #### [facility] [address] [place] [address] Dr. James Crowley RBC 5.33 106/ul Normal 4.70-6.10 [facility] Comment on above: Performed By: #### C BC #### [facility] [address] [place] [address] Dr. James Crowley WBC 10.4 103/ul Normal 4.0-11.0 [facility] Comment on above: Performed By: #### C BC #### [facility] [address] [place] [address] CHEST W CONon [...] by: LEONOR MA Date: 2023-04-08 10:41 Normal [facility] LIPID PROFILEon 04-08-2023 CHOL-HDL RATIO NORM SEE BELOW Normal [facility] Comment on above: Result Comment: 3.3 - 4.4 LOW RISK 4.4 - 7.1 AVERAGE RISK 7.1 - 11.0 MODERATE RISK >11.0 HIGH RISK Performed By: #### U NEO, LIPID #### [facility] [address] [place], [place] [address] Dr. James Crowley Cholesterol [Mass/Vol] 204 mg/dL Critically high <=200 [facility] Comment on above: Performed By: #### U NEO, LIPID #### [facility] [address] [place], [place] [address] Dr. James Crowley Cholesterol in HDL [Mass/Vol] 55 mg/dL Normal 40-60 [facility] Comment on above: Performed By: #### U NEO, LIPID #### [facility] [address] [place] [address] [address] James Crowley Cholesterol in LDL [Mass/Vol] 115.2 mg/dL Normal [facility] Comment on above: Performed By: #### U NEO, LIPID #### [facility] [address] [place] [address] [address] James Crowley Cholesterol.total/C holesterol in HDL [Mass ratio] 3.7 {ratio} Normal [facility] Comment on above: Performed By: #### U NEO, LIPID #### [facility] [address] [place] [address] [address] James Crowley HDL NORMAL > or = 60 mg/dl - LO W CARDIOVASCULAR RISK <40 mg/dl - HIGH CARDIOVASCULAR RISK Normal [facility] Comment on above: Performed By: #### U NEO, LIPID #### [facility] [address] [place] [address] [address] James Crowley LDL CALC NORMAL SEE BELOW Normal [facility] Comment on above: Result Comment: <100 mg/dl OPTIMAL 100 - 129 mg/dl NEAR OR ABOVE OPTIMAL 130 - 159 mg/dl BORDERLINE HIGH 160 - 189 mg/dl HIGH >190 mg/dl VERY HIGH Performed By: #### U NEO, LIPID #### [facility] [address] [place] [address] [address] James Crowley Triglyceride [Mass/Vol] 169 mg/dL Critically high <=150 [facility] Comment on above: Performed By: #### U NEO, LIPID #### [facility] [address] [place] [address] [address] James Crowley VLDL CALC 33.8 mg/dL Normal [facility] Comment on above: Performed By: #### U NEO, LIPID #### [facility] [address] [place] [address] [address] James Crowley PROF 14(COMP METB)on 023 Albumin [Mass/Vol] 3.7 g/dL Normal 3.4-5.0 [facility] Comment on above: Performed By: #### U NEO, LIPID #### [facility] [address] [place] [address] [address] James Crowley Albumin/Globulin [Mass ratio] 0.9 {ratio} Normal [facility] Comment on above: Performed By: #### U NEO, LIPID #### [facility] [address] [place] [address] [address] James Crowley ALP [Catalytic activity/Vol] 86 U/L Normal 46-116 [facility] Comment on above: Performed By: #### U NEO, LIPID #### [facility] [address] [place] [address] [address] James Crowley ALT [Catalytic activity/Vol] 33 U/L Normal 16-63 [facility] Comment on above: Performed By: #### U NEO, LIPID #### [facility] [address] [place] [address] [address] James Crowley Anion gap [Moles/Vol] 14.8 mmol/L Normal [facility] Comment on above: Performed By: #### U NEO, LIPID #### [facility] [address] [place] [address] [address] James Crowley AST [Catalytic activity/Vol] 16 U/L Normal 15-37 [facility] Comment on above: Performed By: #### U NEO, LIPID #### [facility] [address] [place] [address] [address] James Crowley Bilirubin [Mass/Vol] 0.7 mg/dL Normal 0.2-1.0 [facility] Comment on above: Performed By: #### U NEO, LIPID #### [facility] [address] [place] [address] [address] James Crowley Calcium [Mass/Vol] 9.1 mg/dL Normal 8.5-10.1 [facility] Comment on above: Performed By: #### U NEO, LIPID #### [facility] [address] [place] [address] [address] James Crowley Chloride [Moles/Vol] 107 mmol/L Normal 98-107 [facility] Comment on above: Performed By: #### U NEO, LIPID #### [facility] [address] [place] [address] [address] James Crowley CO2 [Moles/Vol] 28.0 mmol/L Normal 21.0-32.0 [facility] Comment on above: Performed By: #### U NEO, LIPID #### [facility] [address] [place] [address] [address] James Crowley Creatinine [Mass/Vol] 1.10 mg/dL Normal 0.70-1.30 [facility] Comment on above: Performed By: #### U NEO, LIPID #### [facility] [address] [place] [address] [address] James Crowley EGFR-AF CZECH >60 Normal >=60 [facility] Comment on above: Performed By: #### U NEO, LIPID #### [facility] [address] [place] [address] [address] James Crowley EGFR-NON AF CZECH >60 Normal >=60 [facility] Comment on above: Performed By: #### U NEO, LIPID #### [facility] [address] [place] [address] [address] James Crowley Globulin (S) [Mass/Vol] 3.9 g/dL Normal [facility] Comment on above: Performed By: #### U NEO, LIPID #### [facility] [address] [place] [address] [address] James Crowley Glucose [Mass/Vol] 98 mg/dL Normal 74-106 [facility] Comment on above: Performed By: #### U NEO, LIPID #### [facility] [address] [place] [address] [address] James Crowley Potassium [Moles/Vol] 3.8 mmol/L Normal 3.5-5.1 [facility] Comment on above: Performed By: #### U NEO, LIPID #### [facility] [address] [place] [address] [address] James Crowley Protein [Mass/Vol] 7.6 g/dL Normal 6.4-8.2 [facility] Comment on above: Performed By: #### U NEO, LIPID #### [facility] [address] [place] [address] [address] James Crowley Sodium [Moles/Vol] 146 mmol/L Critically high 136-145 [facility] Comment on above: Performed By: #### U NEO, LIPID #### [facility] [address] [place] [address] [address] James Crowley Urea nitrogen [Mass/Vol] 18.0 mg/dL Normal 7.0-18.0 [facility] Comment on above: Performed By: #### U NEO, LIPID #### [facility] [address] [place] [address] [address] James Crowley Urea nitrogen/Creatinine [Mass ratio] 16.4 mg/mg Normal [facility] Comment on above: Performed By: #### U NEO, LIPID #### [facility] [address] [place] [address] Dr. James Crowley URIC ACID SERUMon 04-08-2023 Urate [Mass/Vol] 6.7 mg/dL Normal 3.5-7.2 [facility] Comment on above: Performed By: #### U NEO, LIPID #### [facility] [address] [place] [address] CHEST WO CONon [...] Date: 2023-01-04 10:52 Normal [facility] CT CHEST WO CONon 10-07-2022 CT [...] Date: 2022-10-07 16:05 Normal [facility] ACID FAST SMEAR AND CXon Acid Fast Culture Negative Normal [facility] Comment on above: Result Comment: No a tomi fast bacilli isolated after 6 weeks. Performed By: #### U NEO, LIPID #### [facility] [address] [place] [address] [address] James Crowley Acid Fast Smear Negative Normal [facility] Comment on above: Performed By: #### U NEO, LIPID #### [facility] [address] [place] [address] [address] James Crowley [employer] Specimen Processing Concentration Normal [facility] Comment on above: Performed By: #### U NEO, LIPID #### [facility] [address] [place] [address] Dr. James Crowley FUNGAL AB QUANTITAIVE DOUBLE IMMUNODIFFUon 08-22-2022 Aspergillus flavus Negative Normal Neg:<1:1 [facility] Comment on above: Performed By: #### F UNGUYI #### [facility] [address] [address] [address] James Crowley Aspergillus fumigatus Negative Normal Neg:<1:1 [facility] Comment on above: Performed By: #### F UNGUYI #### [facility] [address] [address] [address] James Crowley Aspergillus niger Negative Normal Neg:<1:1 [facility] Comment on above: Performed By: #### F UNGUYI #### [facility] [address] [address] [address] James Crowley Blastomyces Negative Normal Neg:<1:1 [facility] Comment on above: Performed By: #### F UNGUYI #### [facility] [address] [address] [address] James Crowley COXSACKIE B VIRUS ANTIBODIES on 08-21-2022 [place] B-1 Ab Negative Normal Neg:<1:8 [facility] Comment on above: Performed By: #### C OXSBV #### [facility] [address] [address] [address] James Crowley Coxsackie B-2 Ab Negative Normal Neg:<1:8 [facility] Comment on above: Performed By: #### C OXSBV #### [facility] [address] [address] [address] James Crowley coxsarembertoie B-3 Ab Negative Normal Neg:<1:8 [facility] Comment on above: Performed By: #### C OXSBV #### [facility] [address] [address] [address] James Crowley Coxsackie B-4 Ab Negative Normal Neg:<1:8 [facility] Comment on above: Performed By: #### C OXSBV #### [facility] [address] [place] [address] Dr. James Crowley Coxsarembertoie B-5 Ab Negative Normal Neg:<1:8 [facility] Comment on above: Performed By: #### C OXSBV #### [facility] [address] [place] [address] Dr. James Altamiranosarembertoie B-6 Ab Negative Normal Neg:<1:8 [facility] Comment on above: Performed By: #### C OXSBV #### [facility] [address] [place] [address] Dr. James Crowley HISTOPLASMA CAP AB QUANT DID on 08-21-2022 Histoplasma Mycelial CF Ab. Negative Normal Neg:<1:2 [facility] Comment on above: Performed By: #### H ISTGAL #### [facility] [address] [place] [address] Dr. James Crowley Histoplasma Yeast CF Ab Negative Normal Neg:<1:2 [facility] Comment on above: Performed By: #### H ISTGAL #### [facility] [address] [place] [address] Dr. James Crowley COXSACKIE A VIRUS AB IGMon 0 08-20-2022 [place] A16 IgM Negative Normal Neg:<1:10 [facility] Comment on above: Performed By: #### C OXSIGM #### [facility] [address] [place] [address] Dr. James Altamiranosaerinn A24 IgM Negative Normal Neg:<1:10 [facility] Comment on above: Performed By: #### C OXSIGM #### [facility] [address] [place] [address] Dr. James Crowley Coxsaerinn A7 IgM Negative Normal Neg:<1:10 [facility] Comment on above: Performed By: #### C OXSIGM #### [facility] [address] [place] [address] Dr. James Crowley Coxsaerinn A9 IgM Negative Normal Neg:<1:10 [facility] Comment on above: Performed By: #### C OXSIGM #### [facility] [address] [place] [address] Dr. James Crowley HISTOPLASMA GALACTOMANNAN AG URINEon 08-20-2022 Histoplasma Gal'shwetha Ag <0.5 Normal <0.5 ng/mL [facility] Comment on above: Performed By: #### H ISTGAL #### [facility] [address] [place] [address] Dr. James Crowley QUANTIFERON TB GOLD PLUSon 0 08-20-2022 QuantiFERON Criteria Comment Normal [facility] Comment on above: Result Comment: Vick tiFERON-TB [...] By: #### Q NTTB #### [facility] [address] [place] [address] Dr. James Crowley QuantiFERON Incubation Incubation performed. Normal [facility] Comment on above: Performed By: #### Q NTTB #### [facility] [address] [place] [address] Dr. James Crowley QuantiFERON Mitogen Value >10.00 Normal [facility] Comment on above: Performed By: #### Q NTTB #### [facility] [address] [place] [address] Dr. James Crowley QuantiFERON Nil Value 0.04 IU/mL Normal [facility] Comment on above: Performed By: #### Q NTTB #### [facility] [address] [place] [address] Dr. James Crowley QuantiFERON TB1 Ag Value 0.04 IU/mL Normal [facility] Comment on above: Performed By: #### Q NTTB #### [facility] [address] [place] [address] Dr. James Crowley QuantiFERON TB2 Ag Value 0.05 IU/mL Normal [facility] Comment on above: Performed By: #### Q NTTB #### [facility] [address] [place] [address] Dr. James Crowley QuantiFERON-TB Gold Plus Negative Normal Negative [facility] Comment on above: Result Comment: No r esponse to M tuberculosis antigens detected. Infection with M tuberculosis is unlikely, but high risk individuals should be considered for additional testing (ATS/IDSA/CDC Clinical Practice Guidelines, 2017). The reference range is an Antigen minus Nil result of <0.35 IU/mL. Chemiluminescence immunoassay methodology Performed By: #### Q NTTB #### [facility] [address] [place] [address] Dr. James Crowley CREATININEon 08-18-2022 Creatinine [Mass/Vol] 0.97 mg/dL Normal 0.70-1.30 [facility] Comment on above: Performed By: #### H ISTGAL #### [facility] [address] [place] [address] Dr. James Crowley EGFR-AF CZECH >60 Normal >=60 [facility] Comment on above: Performed By: #### H ISTGAL #### [facility] [address] [place] [address] Dr. James Crowley EGFR-NON AF CZECH >60 Normal >=60 [facility] Comment on above: Performed By: #### H ISTGAL #### [facility] [address] [place] [address] CHEST W CONon [...] Date: 2022-08-18 10:27 Normal [facility] CULTURE SPUTUMon 08-18-2022 CULTURE SPUTUM Isolate 1 Haemophilus parainfluenzae Moderate growth of Normal [facility] Comment on above: Result Comment: Beta -Lactamase: Negative Performed By: #### H ISTGAL #### [facility] [address] [address] [address] James Crowley SPUTUM GRAM STAINon 08-18-20 22 COMMENTS Normal [facility] Comment on above: Performed By: #### H ISTGAL #### [facility] [address] [address] [address] James Crowley DIPHTHEROIDS Normal [facility] Comment on above: Performed By: #### H ISTGAL #### [facility] [address] [address] [address] James Crowley EPITHELIALS <25 Normal [facility] Comment on above: Performed By: #### H ISTGAL #### [facility] [address] [address] [address] James Crowley FUNGAL ELEMENTS Normal [facility] Comment on above: Performed By: #### H ISTGAL #### [facility] [address] [address] [address] James Crowley GRAM NEG BACILLI Normal [facility] Comment on above: Performed By: #### H ISTGAL #### [facility] [address] [address] [address] James Crowley GRAM NEG DIPPLOCOCCI FEW Normal [facility] Comment on above: Performed By: #### H ISTGAL #### [facility] [address] [address] [address] James Crowley GRAM POS BACILLI Normal [facility] Comment on above: Performed By: #### H ISTGAL #### [facility] [address] [address] [address] James Crowley GRAM POSITIVE COCCI FEW Normal [facility] Comment on above: Performed By: #### H ISTGAL #### [facility] [address] [address] [address] James Crowley WBC (Bld) [#/Vol] 10*3/uL Normal [facility] Comment on above: Performed By: #### H ISTGAL #### [facility] [address] [address] [address] James Crowley XR RIBS RT PA [...] Date: 2022-08-12 13:02 Normal [facility] Covid-19 PCR (CVDTB)on SARS-CoV-2 (COVID-19) RNA SOURAV+probe Ql (Unsp spec) Not detected Normal NOT DETECTED [facility] Comment on above: Result Comment: When [...] for this test is supported by the [employer] of [employer] and Human Service's declaration that [...] longer be used). Performed By: #### [facility] #### [facility] [address] [place] [address] Dr. James Rey 03-24-2021 L - -------- Specimen: [id number] Received: 03/24/21 Status: BOSTON Mathews Num: [id number] Spec Type: Surgical Subm Dr: Bryan Quick MD Tissues: A Skin-Other than Cyst, tag, debridement or plastic repair (LT NASAL DORSUM) Procedures: HE Stain, Gross/Micro L4 -------- Patient Age/Sex Location Account Attending Physician -------- Mateo Stearns 60/M [place] [id number] Bryan Quick MD -------- SPEC NUM: [id number] RECD: 03/24/21 STATUS: [place] MATHEWS NUM: [id number] FRANCISCA: 03/24/21 [facility] DR: Bryan Quick MD ENTERED: 03/24/[address] [facility] DR: MYAH TYPE: Surgical DEPT: S [...] microscopic findings support the above pathologic diagnosis. [id number] -------- -------- Specimen: [id number] Received: 03/24/21 Status: [place] Dinah Num: [id number] Spec Type: Surgical Subm Dr: Bryan Quick MD Tissues: A Skin-Other than Cyst, tag, debridement or plastic repair (LT NASAL DORSUM) Procedures: REINA Collier, Gross/Micro L4 -------- Patient: Mateo Stearns [id number] (Continued) -------- Signed (signature on file) Cindy Garcia MD 03/25/21 1824 [facility] Vital Signs Date Time Vital Sign Value Performing Clinician Facility 12-12-2024 09:53-0500 Body mass index (BMI) [Ratio] 22.69 kg/m2 MEI Dent MD Work Phone: [facility] 12-12-2024 09:53-0500 Body temperature 98.71 [degF] MEI Dent MD Work Phone: [facility] 12-12-2024 09:53-0500 Body weight 65.7 kg MEI Dent MD Work Phone: [facility] 12-12-2024 09:53-0500 Diastolic blood pressure 88 mm[Hg] MEI Dent MD Work Phone: [facility] 12-12-2024 09:53-0500 Heart rate 81 /min MEI Dent MD Work Phone: [facility] 12-12-2024 09:53-0500 Respiratory rate 18 /min MEI Dent MD Work Phone: [facility] 12-12-2024 09:53-0500 SaO2% (BldA) [Mass fraction] 90 % MEI Dent MD Work Phone: [facility] 12-12-2024 09:53-0500 Systolic blood pressure 131 mm[Hg] MEI Dent MD Work Phone: [facility] 11-02-2024 10:33-0500 Body temperature 98.4 [degF] MEI Dent MD Work Phone: [facility] 11-02-2024 10:33-0500 Diastolic blood pressure 82 mm[Hg] MEI Dent MD Work Phone: [facility] 11-02-2024 10:33-0500 Heart rate 100 /min MEI Dent MD Work Phone: [facility] 11-02-2024 10:33-0500 Respiratory rate 18 /min MEI Dent MD Work Phone: [facility] 11-02-2024 10:33-0500 SaO2% (BldA) [Mass fraction] 97 % MEI Dent MD Work Phone: [facility] 11-02-2024 10:33-0500 Systolic blood pressure 118 mm[Hg] MEI Dent MD Work Phone: [facility] 10-29-2024 10:28-0500 Body mass index (BMI) [Ratio] 23.38 kg/m2 MEI Dent MD Work Phone: [facility] 10-29-2024 10:28-0500 Body temperature 97.9 [degF] MEI Dent MD Work Phone: [facility] 10-29-2024 10:28-0500 Body weight 67.7 kg MEI Dent MD Work Phone: [facility] 10-29-2024 10:28-0500 Diastolic blood pressure 84 mm[Hg] MEI Dent MD Work Phone: [facility] 10-29-2024 10:28-0500 Heart rate 81 /min MEI Dent MD Work Phone: [facility] 10-29-2024 10:28-0500 Respiratory rate 18 /min MEI Dent MD Work Phone: [facility] 10-29-2024 10:28-0500 SaO2% (BldA) [Mass fraction] 95 % MEI Dent MD Work Phone: [facility] 10-29-2024 10:28-0500 Systolic blood pressure 126 mm[Hg] MEI Dent MD Work Phone: [facility] 10-22-2024 10:26-0500 Body mass index (BMI) [Ratio] 23.34 kg/m2 MEI Dent MD Work Phone: [facility] 10-22-2024 10:26-0500 Body temperature 97.11 [degF] MEI Dent MD Work Phone: [facility] 10-22-2024 10:26-0500 Body weight 67.6 kg MEI Dent MD Work Phone: [facility] 10-22-2024 10:26-0500 Diastolic blood pressure 81 mm[Hg] MEI Dent MD Work Phone: [facility] 10-22-2024 10:26-0500 Heart rate 71 /min MEI Dent MD Work Phone: [facility] 10-22-2024 10:26-0500 Respiratory rate 18 /min MEI Dent MD Work Phone: [facility] 10-22-2024 10:26-0500 SaO2% (BldA) [Mass fraction] 91 % MEI Dent MD Work Phone: [facility] 10-22-2024 10:26-0500 Systolic blood pressure 127 mm[Hg] MEI Dent MD Work Phone: [facility] 10-16-2024 10:59-0500 Body height 175.3 cm Kathie Sánchez BACK [employer] MACHINE OPERATOR Work Phone: [facility] 10-16-2024 10:59-0500 Body mass index (BMI) [Ratio] 22.21 kg/m2 Kathie Princess BACK STR[employer] MACHINE OPERATOR Work Phone: [facility] 10-16-2024 10:59-0500 Body temperature 98.01 [degF] Kathie Sánchez BACK STRIP MACHINE OPERATOR Work Phone: [facility] 10-16-2024 10:59-0500 Body weight 68.22 kg Kathie Princess BACK STRIP MACHINE OPERATOR Work Phone: [facility] 10-16-2024 10:59-0500 Diastolic blood pressure 78 mm[Hg] Kathie Princess BACK STRIP MACHINE OPERATOR Work Phone: [facility] 10-16-2024 10:59-0500 Heart rate 78 /min Kathie Princess BACK STRIP MACHINE OPERATOR Work Phone: [facility] 10-16-2024 10:59-0500 Respiratory rate 20 /min Kathie Hunterrach BACK STRIP MACHINE OPERATOR Work Phone: [facility] 10-16-2024 10:59-0500 SaO2% (BldA) [Mass fraction] 92 % Kathie Hunterrach BACK STRIP MACHINE OPERATOR Work Phone: [facility] 10-16-2024 10:59-0500 Systolic blood pressure 110 mm[Hg] Kathie Hunterrach BACK STRIP MACHINE OPERATOR Work Phone: [facility] 10-15-2024 10:45-0500 Body mass index (BMI) [Ratio] 23.45 kg/m2 MEI Dent MD Work Phone: [facility] 10-15-2024 10:45-0500 Body temperature 97.81 [degF] MEI Dent MD Work Phone: [facility] 10-15-2024 10:45-0500 Body weight 67.9 kg MEI Dent MD Work Phone: [facility] 10-15-2024 10:45-0500 Diastolic blood pressure 81 mm[Hg] MEI Dent MD Work Phone: [facility] 10-15-2024 10:45-0500 Heart rate 87 /min MEI Dent MD Work Phone: [facility] 10-15-2024 10:45-0500 Respiratory rate 16 /min MEI Dent MD Work Phone: [facility] 10-15-2024 10:45-0500 SaO2% (BldA) [Mass fraction] 95 % MEI Dent MD Work Phone: [facility] 10-15-2024 10:45-0500 Systolic blood pressure 121 mm[Hg] MEI Dent MD Work Phone: [facility] 10-08-2024 10:34-0500 Body mass index (BMI) [Ratio] 23.69 kg/m2 MEI Dent MD Work Phone: [facility] 10-08-2024 10:34-0500 Body temperature 96.69 [degF] MEI Dent MD Work Phone: [facility] 10-08-2024 10:34-0500 Body weight 68.6 kg MEI Dent MD Work Phone: [facility] 10-08-2024 10:34-0500 Diastolic blood pressure 76 mm[Hg] MEI Dent MD Work Phone: [facility] 10-08-2024 10:34-0500 Heart rate 103 /min MEI Dent MD Work Phone: [facility] 10-08-2024 10:34-0500 Respiratory rate 18 /min MEI Dent MD Work Phone: [facility] 10-08-2024 10:34-0500 SaO2% (BldA) [Mass fraction] 90 % MEI Dent MD Work Phone: [facility] 10-08-2024 10:34-0500 Systolic blood pressure 165 mm[Hg] MEI Dent MD Work Phone: [facility] 10-01-2024 10:42-0500 Body mass index (BMI) [Ratio] 23.34 kg/m2 MEI Dent MD Work Phone: [facility] 10-01-2024 10:42-0500 Body temperature 97.9 [degF] MEI Dent MD Work Phone: [facility] 10-01-2024 10:42-0500 Body weight 67.6 kg MEI Dent MD Work Phone: [facility] 10-01-2024 10:42-0500 Diastolic blood pressure 83 mm[Hg] MEI Dent MD Work Phone: [facility] 10-01-2024 10:42-0500 Heart rate 99 /min MEI Dent MD Work Phone: [facility] 10-01-2024 10:42-0500 Respiratory rate 18 /min MEI Dent MD Work Phone: [facility] 10-01-2024 10:42-0500 SaO2% (BldA) [Mass fraction] 87 % MEI Dent MD Work Phone: [facility] Comment on above: Wearing mask, Normal for him with mask o n 10-01-2024 10:42-0500 Systolic blood pressure 129 mm[Hg] MEI Dent MD Work Phone: [facility] 09-25-2024 14:15-0400 Body mass index (BMI) [Ratio] 23.17 kg/m2 MEI Dent MD Work Phone: [facility] 09-25-2024 14:15-0400 Body weight 67.1 kg MEI Dent MD Work Phone: [facility] 09-13-2024 10:27-0400 Body height 175.3 cm Kathie Sánchez BACK STRIP MACHINE OPERATOR Work Phone: [facility] 09-13-2024 10:27-0400 Body mass index (BMI) [Ratio] 21.8 kg/m2 Kathiekrysta Sánchez BACK STRIP MACHINE OPERATOR Work Phone: [facility] 09-13-2024 10:27-0400 Body temperature 98.4 [degF] Kathie Princess BACK STRIP MACHINE OPERATOR Work Phone: [facility] 09-13-2024 10:27-0400 Body weight 66.95 kg Kathie Princess BACK STRIP MACHINE OPERATOR Work Phone: [facility] 09-13-2024 10:27-0400 Heart rate 96 /min Kathie Princess BACK STRIP MACHINE OPERATOR Work Phone: [facility] 09-13-2024 10:27-0400 Respiratory rate 10 /min Kathie Princess BACK STRIP MACHINE OPERATOR Work Phone: [facility] 09-13-2024 10:27-0400 SaO2% (BldA) [Mass fraction] 97 % Kathie Princess BACK STRIP MACHINE OPERATOR Work Phone: [facility] 09-11-2024 13:33-0400 Body mass index (BMI) [Ratio] 23.51 kg/m2 MEI Dent MD Work Phone: [facility] 09-11-2024 13:33-0400 Body temperature 97.81 [degF] MEI Dent MD Work Phone: [facility] 09-11-2024 13:33-0400 Body weight 68.1 kg MEI Dent MD Work Phone: [facility] 09-11-2024 13:33-0400 Diastolic blood pressure 82 mm[Hg] MEI Dent MD Work Phone: [facility] 09-11-2024 13:33-0400 Heart rate 80 /min MEI Dent MD Work Phone: [facility] 09-11-2024 13:33-0400 Respiratory rate 18 /min MEI Dent MD Work Phone: [facility] 09-11-2024 13:33-0400 SaO2% (BldA) [Mass fraction] 94 % MEI Dent MD Work Phone: [facility] 09-11-2024 13:33-0400 Systolic blood pressure 146 mm[Hg] MEI Dent MD Work Phone: [facility] 07-12-2024 13:06-0400 Body mass index (BMI) [Ratio] 23.41 kg/m2 MEI Dent MD Work Phone: [facility] 07-12-2024 13:06-0400 Body temperature 98.1 [degF] MEI Dent MD Work Phone: [facility] 07-12-2024 13:06-0400 Body weight 67.8 kg MEI Dent MD Work Phone: [facility] 07-12-2024 13:06-0400 Diastolic blood pressure 83 mm[Hg] MEI Dent MD Work Phone: [facility] 07-12-2024 13:06-0400 Heart rate 95 /min MEI Dent MD Work Phone: [facility] 07-12-2024 13:06-0400 Respiratory rate 18 /min MEI Dent MD Work Phone: [facility] 07-12-2024 13:06-0400 SaO2% (BldA) [Mass fraction] 95 % MEI Dent MD Work Phone: [facility] 07-12-2024 13:06-0400 Systolic blood pressure 157 mm[Hg] MEI Dent MD Work Phone: [facility] 06-21-2024 13:13-0400 Body height 170.2 cm MEI Dent MD Work Phone: [facility] 06-21-2024 13:13-0400 Body mass index (BMI) [Ratio] 23.41 kg/m2 MEI Dent MD Work Phone: [facility] 06-21-2024 13:13-0400 Body temperature 97.5 [degF] MEI Dent MD Work Phone: [facility] 06-21-2024 13:13-0400 Body weight 67.8 kg MEI Dent MD Work Phone: [facility] 06-21-2024 13:13-0400 Diastolic blood pressure 75 mm[Hg] MEI Dent MD Work Phone: [facility] 06-21-2024 13:13-0400 Heart rate 86 /min MEI Dent MD Work Phone: [facility] 06-21-2024 13:13-0400 Respiratory rate 20 /min MEI Dent MD Work Phone: [facility] 06-21-2024 13:13-0400 SaO2% (BldA) [Mass fraction] 95 % MEI Dent MD Work Phone: [facility] 06-21-2024 13:13-0400 Systolic blood pressure 124 mm[Hg] MEI Dent MD Work Phone: [facility] 06-01-2024 13:13-0400 Body height 175.3 cm Amandeep Crisostomo MD Work Phone: [facility] 06-01-2024 13:13-0400 Body mass index (BMI) [Ratio] 22.14 kg/m2 Amandeep Crisostomo MD Work Phone: [facility] 06-01-2024 13:13-0400 Body weight 68 kg Amandeep Crisostomo MD Work Phone: [facility] 06-01-2024 13:13-0400 Diastolic blood pressure 81 mm[Hg] Amandeep Crisostomo MD Work Phone: [facility] 06-01-2024 13:13-0400 Heart rate 88 /min Amandeep Crisostomo MD Work Phone: [facility] 06-01-2024 13:13-0400 Systolic blood pressure 138 mm[Hg] Amandeep Crisostomo MD Work Phone: [facility] 05-21-2024 11:35-0400 Blood Pressure Location Rufina VORA [facility] 05-21-2024 11:35-0400 Body temperature 98.6 [degF] Rufina VORA [facility] 05-21-2024 11:35-0400 Diastolic blood pressure 84 mm[Hg] Rufina VORA [facility] 05-21-2024 11:35-0400 Heart rate 76 /min Rufina VORA [facility] 05-21-2024 11:35-0400 Respiratory rate 16 /min Rufina VORA [facility] 05-21-2024 11:35-0400 Systolic blood pressure 139 mm[Hg] Rufina VORA [facility] 06-06-2023 10:36-0400 Blood Pressure Location Rufina VORA [facility] 06-06-2023 10:36-0400 Diastolic blood pressure 76 mm[Hg] Rufina VORA [facility] 06-06-2023 10:36-0400 Heart rate 72 /min Rufina VORA [facility] 06-06-2023 10:36-0400 Respiratory rate 16 /min Rufina VORA [facility] 06-06-2023 10:36-0400 Systolic blood pressure 130 mm[Hg] Rufina VORA [facility] 02-07-2023 12:42-0400 Blood Pressure Location Rufina VORA [facility] 02-07-2023 12:42-0400 Diastolic blood pressure 77 mm[Hg] Rufina VORA [facility] 02-07-2023 12:42-0400 Heart rate 74 /min Rufina VORA [facility] 02-07-2023 12:42-0400 Systolic blood pressure 138 mm[Hg] Rufina VORA [facility] 05-17-2022 12:56-0400 Blood Pressure Location Rufina VORA [facility] 05-17-2022 12:56-0400 Diastolic blood pressure 87 mm[Hg] Rufina VORA [facility] 05-17-2022 12:56-0400 Heart rate 79 /min Rufina VORA [facility] 05-17-2022 12:56-0400 Respiratory rate 16 /min Rufina [facility] [facility] [place] 05-17-2022 12:56-0400 Systolic blood pressure 139 mm[Hg] Rufina VORA [facility] [place] Encounters Encounter Date Encounter Type Care Provider Facility Start: 01-18-2025 ambulatory Rufina VORA Facili ty: [place] Start: 01-11-2025 End: 01-11-2025 ambulatory Rufina VORA Facility:[facility] Start: 01-11-2025 End: 01-11-2025 Patient encounter procedure Rufina VORA [facility] [place] Start: 01-02-2025 End: 01-02-2025 Bamboo flowsheet Karen Valdovinos DO Work Phone: [facility] Start: 01-02-2025 End: 01-02-2025 Bamboo flowsheet Karen Valdovinos DO Work Phone: [facility] Start: 01-02-2025 End: 01-02-2025 ambulatory KAREN VALDOVINOS Not Available Start: 12-12-2024 End: 12-12-2024 ambulatory Severo DENT Facility:[facility] Start: 12-12-2024 End: 12-12-2024 Patient encounter procedure Severo Dent MD Work Phone: Radiation Oncology Comment on above: Malignant neoplasm o f prostate (HCC) (Primary Dx) Start: 12-05-2024 End: 12-05-2024 Clinisync Result Encounter Generic External Data Provider [facility] External Department Unsolicited Start: 12-05-2024 End: 12-05-2024 Clinisync Result Encounter Generic External Data Provider [facility] External Department Unsolicited Start: 11-26-2024 End: 11-26-2024 Social Work [facility] Hematology/Oncology Start: 11-02-2024 End: 11-09-2024 Radiation Oncology Note Severo Dent MD Work Phone: Radiation Oncology Comment on above: Completion Note Start: 11-02-2024 End: 11-09-2024 Patient encounter procedure Severo Dent MD Work Phone: Radiation Oncology Comment on above: Malignant neoplasm o f prostate (HCC) (Primary Dx) Start: 11-02-2024 End: 11-02-2024 ambulatory Severo DENT Facility:[facility] Start: 11-01-2024 End: 11-01-2024 ambulatory Severo DENT Facility:[facility] Start: 10-31-2024 End: 10-31-2024 ambulatory Severo DENT Facility:[facility] Start: 10-30-2024 End: 10-30-2024 ambulatory Severo DENT Facility:[facility] Start: 10-29-2024 End: 10-29-2024 Patient encounter procedure Severo Dent MD Work Phone: Radiation Oncology Comment on above: Malignant neoplasm o f prostate (HCC) (Primary Dx) Start: 10-29-2024 End: 10-29-2024 ambulatory Severo DENT Facility:[facility] Start: 10-26-2024 End: 10-26-2024 Social Work [facility] Hematology/Oncology Start: 10-24-2024 End: 10-24-2024 ambulatory Severo DENT Facility:[facility] Start: 10-23-2024 End: 10-23-2024 ambulatory Severo DENT Facility:[facility] Start: 10-22-2024 End: 10-22-2024 Patient encounter procedure Severo Dent MD Work Phone: Radiation Oncology Comment on above: Malignant neoplasm o f prostate (HCC) (Primary Dx) Start: 10-22-2024 End: 10-22-2024 ambulatory Severo DENT Facility:[facility] Start: 10-21-2024 End: 10-21-2024 ambulatory Severo FIOREGÉNESIS Facility:[facility] Start: 10-19-2024 End: 10-19-2024 ambulatory Severo GOPAL DENT Facility:[facility] Start: 10-18-2024 End: 10-18-2024 ambulatory Severo FIOREGÉNESIS Facility:[facility] Start: 10-17-2024 End: 10-17-2024 ambulatory Severo FIOREGÉNESIS Facility:[facility] Start: 10-16-2024 End: 10-16-2024 Bamboo flowsheet Kathie [...] Start: 10-16-2024 End: 10-16-2024 ambulatory Severo DENT Facility:[facility] Start: 10-15-2024 End: 10-15-2024 Patient encounter procedure Severo Dent MD Work Phone: Radiation Oncology Comment on above: Malignant neoplasm o f prostate (HCC) (Primary Dx) Start: 10-15-2024 End: 10-15-2024 ambulatory Severo DENT Facility:[facility] Start: 10-12-2024 End: 10-12-2024 ambulatory Severo DENT Facility:[facility] Start: 10-11-2024 End: 10-11-2024 Clinisync Result Encounter Generic External Data Provider [facility] External Department Unsolicited Start: 10-11-2024 End: 10-11-2024 Clinisync Result Encounter Generic External Data Provider [facility] External Department Unsolicited Start: 10-11-2024 End: 10-11-2024 Patient encounter procedure [facility] Work Phone: Radiation Oncology Comment on above: Malignant neoplasm o f prostate (HCC) Start: 10-11-2024 End: 10-11-2024 ambulatory Severo DENT Facility:[facility] Start: 10-10-2024 End: 10-10-2024 ambulatory Severo DENT Facility:[facility] Start: 10-09-2024 End: 10-09-2024 ambulatory Severo DENT Facility:[facility] Start: 10-08-2024 End: 10-08-2024 Patient encounter procedure Severo Dent MD Work Phone: Radiation Oncology Comment on above: Malignant neoplasm o f prostate (HCC) (Primary Dx) Start: 10-08-2024 End: 10-08-2024 ambulatory Severo DENT Facility:[facility] Start: 10-05-2024 End: 10-05-2024 ambulatory Severo DENT Facility:[facility] Start: 10-04-2024 End: 10-05-2024 ambulatory KATHIE SÁNCHEZ Facility:[facility] Start: 10-04-2024 End: 10-04-2024 Patient encounter procedure [facility] [place] Work Phone: Radiation Oncology Comment on above: Malignant neoplasm o f prostate (HCC) Start: 10-04-2024 End: 10-04-2024 Clinisync Result Encounter Generic External Data Provider [facility] External Department Unsolicited Start: 10-04-2024 End: 10-04-2024 Clinisync Result Encounter Generic External Data Provider [facility] External Department Unsolicited Start: 10-03-2024 End: 10-03-2024 ambulatory Severo DENT Facility:[facility] Start: 10-02-2024 End: 10-02-2024 ambulatory G GOPAL DENT Facility:[facility] Start: 10-01-2024 End: 10-01-2024 Patient encounter procedure Severo Dent MD Work Phone: Radiation Oncology Comment on above: Malignant neoplasm o f prostate (HCC) (Primary Dx) Start: 10-01-2024 End: 10-01-2024 ambulatory Severo GOPAL ENGGÉNESIS Facility:[facility] Start: 09-28-2024 End: 09-28-2024 ambulatory Severo FIOREGÉNESIS Facility:[facility] Start: 09-27-2024 End: 09-27-2024 ambulatory Severo FIOREGÉNESIS Facility:[facility] Start: 09-26-2024 End: 09-26-2024 ambulatory Severo FIOREGÉNESIS Facility:[facility] Start: 09-25-2024 End: 09-25-2024 Social Work [facility] [...] Start: 09-17-2024 End: 09-18-2024 ambulatory Severo DENT Facility:[facility] Start: 09-17-2024 End: 09-27-2024 Patient encounter procedure Severo Dent MD Work Phone: Radiation Oncology Comment on above: Malignant neoplasm o f prostate (HCC) (Primary Dx) Start: 09-14-2024 End: 09-14-2024 Telephone encounter Severo Dent MD Work Phone: Radiation Oncology Comment on above: Financial Questions Start: 09-13-2024 End: 09-13-2024 Bamboo flowsheet Kathie Hunterrach BACK STRIP MACHINE OPERATOR Work Phone: [facility] Start: 09-13-2024 End: 09-13-2024 Bamboo flowsheet Kathie Richkashmirrach BACK STRIP MACHINE OPERATOR Work Phone: [facility] Start: 09-13-2024 End: 09-13-2024 Office outpatient visit 15 minutes Kathie Sánchez BACK STRIP MACHINE OPERATOR Work Phone: [facility] Comment on [...] Start: 07-12-2024 End: 07-12-2024 ambulatory Severo DENT Facility:[facility] Start: 07-12-2024 End: 07-12-2024 Patient encounter procedure Severo Dent MD Work Phone: Radiation Oncology Comment on above: Malignant neoplasm o f prostate (HCC) (Primary Dx) Start: 06-21-2024 End: 06-21-2024 ambulatory RUFINA VORA Facility:[facility] Start: 06-21-2024 End: 06-21-2024 Patient encounter procedure [...] encounter procedure Rufina VORA [facility] Start: 05-01-2024 End: 05-01-2024 ambulatory Rufina VORA Facility:[facility] Start: 05-01-2024 End: 05-01-2024 Patient encounter procedure Rufina VORA [facility] Start: 02-28-2024 Patient encounter procedure Generic Provider [facility] Start: 02-28-2024 End: 02-28-2024 ambulatory KATHIE RINCONSUKHWINDER Not Available Start: 01-05-2024 Clinisync Result Encounter Generic External Data Provider [facility] External Department Unsolicited Start: 01-05-2024 Clinisync Result Encounter Generic External Data Provider [facility] External Department Unsolicited Start: 01-02-2024 End: 01-02-2024 ambulatory Rufina VORA Facility:[facility] [place] Start: 07-22-2023 ambulatory Rufina VORA Facili ty:[facility] [place] Start: 06-06-2023 End: 06-06-2023 ambulatory Rufina VORA Facility:[facility] [place] Start: 06-06-2023 End: 06-06-2023 Patient encounter procedure Rufina VORA [facility] Start: 05-17-2023 End: 05-17-2023 Patient encounter procedure Rufina VORA [facility] Start: 04-12-2023 End: 04-13-2023 ambulatory PROMISE SÁNCHEZ Facility:[facility] Start: 04-08-2023 End: 04-09-2023 ambulatory PROMISE SÁNCHEZ Facility:[facility] Start: 02-07-2023 End: 02-07-2023 Patient encounter procedure Rufina VORA [facility] Start: 01-04-2023 End: 01-05-2023 ambulatory PROMISE 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 Facility:[facility] Start: 08-12-2022 End: 08-12-[address] ELSA RAE . Facility:[facility] Start: 07-20-2022 End: 08-11-2022 Pre-admission assessment Rufina VORA [facility] Start: 05-17-2022 End: 06-16-2022 Pre-admission assessment Rufina VORA [facility] Start: 05-17-2022 End: 05-17-2022 Patient encounter procedure Rufina VORA [facility] Start: 05-03-2022 End: 05-03-2022 ambulatory ROBERTO SAMSA . Facility:[facility] Start: 03-24-2021 End: 03-24-2021 Departed Referred Bryan Quick Work Phone: [facility] Main Leiter Procedures Date Procedure Procedure Detail Performing Clinician Start: 01-02-2025 Oph bmtry prtl coher intrfrmtry io lens pwr erna Karen Valdovinos DO Work Phone: Start: 01-02-2025 End: 01-02-2025 [facility] medical xm&eval compre new pt 1/> vst [...] on above: Performed By: #### P [facility] #### [facility] [address] [place] [address] Dr. James Crowley Start: 10-19-2022 Colonoscopy Generic Pr ovider Colonoscopy Rufina VORA Procedure on foot Rufina LEON Repair of hip Rufina VORA Comment on above: Both hips Both hips Transrectal needle biopsy of prostate uRfina VORA Plan of Treatment Date Care Activity Detail Author Start: 10-19-2032 Screening for malign ant neoplasm of colon [facility] Start: 03-11-2031 Urine microalbumin profile DTaP,Tdap,Td Vaccine (2 - Td or Tdap) [facility] Start: 12-05-2029 Prostate specific antigen measurement Prostate Cancer Screening Discussion [facility] Start: 09-07-2029 Prostate specific antigen measurement Prostate Cancer Screening Discussion [facility] Start: 06-12-2025 End: 06-12-2025 ambulatory 06/12/2025 11:00 AM EDT Visit (SP) Office Hematology/Oncology [address] [place] [address] Cat Baker APRN.STEAM CRANE OPERATOR [address] [place] [address] survivorship Hematology/Oncology Comment on above: survivorship Start: 06-12-2025 End: 06-12-2025 Patient encounter procedure 06/12/2025 10:30 AM EDT Office Visit Radiation Oncology [address] [place] [address] Severo Dent MD [address] [place] [address] 6 month Follow up Radiation Oncology Comment on above: 6 month Follow up Start: 06-11-2025 End: 09-10-2025 Prostate specific Ag [Mass/volume] in Serum or Plasma PROSTATE-SPECIFIC ANTIGEN DIAGNOSTIC Lab Routine Malignant neoplasm of prostate (HCC) Expected: 06/11/2025 (Approximate), Expires: 09/10/2025 [facility] Work Phone: Comment on above: Expected: 06/11/2025 (Approximate), Expires: 09/10/2025 Start: 02-27-2025 Medicare Annual Well ness (AWV) Medicare Annual Wellness (AWV) [facility] Start: 02-27-2025 Pneumococcal Vaccine : 65+ Years (1 of 2 - PCV) Pneumococcal Vaccine: 65+ Years (1 of 2 - PCV) [facility] Comment on above: Postponed from 07/21 (Patient Refused) Start: 01-08-2025 End: 01-08-2025 Patient encounter procedure 01/08/2025 9:00 AM EST Office Visit [facility] [address] [place] [address] Kathie Sánchez, DONALD [address] [place] [address] [facility] Start: 01-02-2025 End: 01-02-2025 Patient encounter procedure [facility] Comment on above: Arrived Start: 12-17-2024 End: 12-17-2024 Patient encounter procedure 12/17/2024 9:40 AM EST Office Visit [facility] [address] [place] [address] Kathie Sánchez, BACK STRIP MACHINE OPERATOR [address] [place] [phone] [facility] Start: 12-12-2024 End: 12-12-2024 Patient encounter procedure 12/12/2024 10:00 AM EST Office Visit Radiation Oncology [address] [place] [address] [place] [address] Severo Dent MD [address] [place] [address] 3-4 week follow up Radiation Oncology Comment on above: 3-4 week follow up Start: 11-30-2024 End: 11-30-2024 Patient encounter procedure Radiation Oncology Comment on above: 3-4 week follow up Start: 11-28-2024 Advance Directive Discussion Advance Directive Discussion [facility] Start: 11-27-2024 End: 02-26-2025 Prostate specific Ag [Mass/volume] in Serum or Plasma PROSTATE-SPECIFIC ANTIGEN DIAGNOSTIC Lab Routine Malignant neoplasm of prostate (HCC) Expected: 11/27/2024, Expires: 02/26/2025 [facility] Work Phone: Comment on above: Expected: 11/27/2024 , Expires: 02/26/2025 Start: 11-23-2024 End: 11-23-2024 Patient encounter procedure 11/23/2024 10:00 AM EST Office Visit [facility] [address] [place] [address] labs [facility] Comment on above: labs Start: 11-02-2024 End: 11-02-2024 Patient encounter procedure 11/02/2024 10:15 AM EST Appointment Radiation Oncology [address] [place] [address] Prostate Radiation Oncology Comment on above: Prostate Start: 11-01-2024 End: 11-01-2024 Patient encounter procedure Radiation Oncology Comment on above: Prostate FINAL OTV Fx Start: 10-31-2024 End: 10-31-2024 Patient encounter procedure 10/31/2024 10:15 AM EST Appointment Radiation Oncology [address] [place] [address] Prostate Radiation Oncology Comment on above: Prostate Start: 10-30-2024 End: 10-30-2024 Patient encounter procedure 10/30/2024 10:15 AM EST Appointment Radiation Oncology [address] [place] [address] Prostate Radiation Oncology Comment on above: Prostate Start: 10-29-2024 End: 10-29-2024 Patient encounter procedure Radiation Oncology Comment on above: Prostate Location: [facility] Start: 10-24-2024 End: 10-24-2024 Patient encounter procedure 10/24/2024 10:15 AM EST Appointment Radiation Oncology [address] [place] [address] Prostate Radiation Oncology Comment on above: Prostate Start: 10-23-2024 End: 10-23-2024 Patient encounter procedure 10/23/2024 10:15 AM EST Appointment Radiation Oncology [address] [place] [address] Prostate Radiation Oncology Comment on above: Prostate Start: 10-22-2024 End: 10-22-2024 Patient encounter procedure Radiation Oncology Comment on above: Prostate Location: [facility] Start: 10-21-2024 End: 10-21-2024 Patient encounter procedure 10/21/2024 10:15 AM EST Appointment Radiation Oncology [address] [place] [address] Prostate Radiation Oncology Comment on above: Prostate Start: 10-19-2024 End: 10-19-2024 Patient encounter procedure 10/19/2024 10:15 AM EST Appointment Radiation Oncology [address] [place] [address] Prostate Radiation Oncology Comment on above: Prostate Start: 10-18-2024 End: 10-18-2024 Patient encounter procedure 10/18/2024 10:15 AM EST Appointment Radiation Oncology [address] [place] [address] Prostate Radiation Oncology Comment on above: Prostate Start: 10-17-2024 End: 10-17-2024 Patient encounter procedure 10/17/2024 10:15 AM EST Appointment Radiation Oncology [address] [place] [address] Prostate Radiation Oncology Comment on above: Prostate [...] 10:15 AM EST Appointment Radiation Oncology [address] [place] [address] Prostate Radiation Oncology Comment on above: Prostate Start: 10-11-2024 End: 01-10-2025 CBC W Auto Differential panel - Blood COMPLETE BLOOD COUNT AND DIFFERENTIAL Lab Routine Malignant neoplasm of prostate (HCC) Expected: 10/11/2024, Expires: 01/10/2025 [facility] Work Phone: Comment on above: Expected: 10/11/2024 , Expires: 01/10/2025 Start: 10-11-2024 End: 10-11-2024 Patient encounter procedure 10/11/2024 10:30 AM EST Appointment Radiation Oncology [address] [place] [address] Prostate Radiation Oncology Comment on above: Prostate Start: 10-10-2024 End: 10-10-2024 Patient encounter procedure 10/10/2024 10:30 AM EST Appointment Radiation Oncology [address] [place] [address] Prostate Radiation Oncology Comment on above: Prostate Start: 10-09-2024 End: 10-09-2024 Patient encounter procedure 10/09/2024 10:30 AM EST Appointment Radiation Oncology [address] [place] [address] Prostate Radiation Oncology Comment on above: Prostate Start: 10-08-2024 End: 10-08-2024 Patient encounter procedure Radiation Oncology Comment on above: Prostate Location: [facility] Start: 10-05-2024 End: 10-05-2024 Patient encounter procedure 10/05/2024 10:15 AM EST Appointment Radiation Oncology [address] [place] [address] Prostate Radiation Oncology Comment on above: Prostate Start: 10-04-2024 End: 10-04-2024 Patient encounter procedure 10/04/2024 2:15 PM EST Appointment Radiation Oncology [address] [place] [address] Prostate - appt in [place] before Radiation Oncology Comment on above: Prostate - appt in [place] before Start: 10-04-2024 End: 01-03-2025 CBC W Auto Differential panel - Blood COMPLETE BLOOD COUNT AND DIFFERENTIAL Lab Routine Malignant neoplasm of prostate (HCC) Expected: 10/04/2024, Expires: 01/03/2025 [facility] Work Phone: Comment on above: Expected: 10/04/2024 , Expires: 01/03/2025 Start: 10-04-2024 End: 10-04-2024 Patient encounter procedure 10/04/2024 10:15 AM EST Appointment Radiation Oncology [address] [place] [address] Prostate Radiation Oncology Comment on above: Prostate Start: 10-03-2024 End: 10-03-2024 Patient encounter procedure 10/03/2024 10:15 AM EST Appointment Radiation Oncology [address] [place] [address] Prostate Radiation Oncology Comment on above: Prostate Start: 10-02-2024 End: 10-02-2024 Patient encounter procedure 10/02/2024 10:15 AM EST Appointment Radiation Oncology [address] [place] [address] Prostate Radiation Oncology Comment on above: Prostate Start: 10-01-2024 End: 10-01-2024 Patient encounter procedure Radiation Oncology Comment on above: Prostate Location: [facility] Start: 09-28-2024 End: 09-28-2024 Patient encounter procedure 09/28/2024 2:45 PM EDT Appointment Radiation Oncology [address] [place] [address] Prostate Radiation Oncology Comment on above: Prostate Start: 09-27-2024 End: 09-27-2024 Patient encounter procedure 09/27/2024 2:45 PM EDT Appointment Radiation Oncology [address] [place] [address] Prostate Radiation Oncology Comment on above: Prostate Start: 09-26-2024 End: 09-26-2024 Patient encounter procedure 09/26/2024 11:30 AM EDT Appointment Radiation Oncology [address] [place] [address] Prostate Radiation Oncology Comment on above: Prostate Start: 09-25-2024 End: 09-25-2024 Patient encounter procedure Radiation Oncology Comment on above: NEW START PROSTATE Prostate - would lik e 10:10:45 Start: 09-21-2024 End: 12-21-2024 Prostate specific Ag [Mass/volume] in Serum or Plasma PROSTATE-SPECIFIC ANTIGEN DIAGNOSTIC Lab Routine Malignant neoplasm of prostate (HCC) Expected: 09/21/2024, Expires: 12/21/2024 [facility] Work Phone: Comment on above: Expected: 09/21/2024 , Expires: 12/21/2024 Start: 09-18-2024 End: 09-18-2024 Patient encounter procedure 09/18/2024 9:00 AM EDT Office [place] [address] Financial Questions for upcoming treatments Financial Clearance [...] disease), cervical Expected: 09/13/2024 (Approximate), Expires: 09/13/2025 [facility] Work Phone: Comment on above: Expected: 09/13/2024 (Approximate), Expires: 09/13/2025 Start: 09-13-2024 End: 09-13-2024 Patient encounter procedure [facility] Comment on above: Other thrombophilia (CMS/HCC); Chronic respiratory failure with hypoxia (CMS/HCC); Abdominal aortic aneurysm, without rupture, unspecified (CMS/HCC); Thoracic aortic aneurysm, without rupture, unspecified (CMS/HCC); Atherosclerosis of aorta (CMS/HCC) Start: 09-11-2024 End: 09-11-2024 Patient encounter procedure 09/11/2024 1:45 PM EDT Office Visit Radiation Oncology [address] [place] [address] [place] [address] Severo Dent MD [address] [place] [address] [place] [address] 2 month rv Radiation Oncology Comment on above: 2 month rv Start: 07-29-2024 Covid-19 Vaccine ( season) Covid-19 Vaccine ( season) [facility] Start: 07-29-2024 Influenza vaccination Influenza Vacc ine (#1) [facility] Start: 07-12-2024 End: 07-12-2024 Patient encounter procedure 07/12/2024 1:15 PM EDT Office Visit Radiation Oncology [address] [place] [address] Severo Dent MD [address] [place] [address] 3 week rv-Decipher results Radiation Oncology Comment on above: 3 week rv-Decipher r esults Start: 06-01-2024 End: 08-31-2024 Prostate specific Ag [Mass/volume] in Serum or Plasma PROSTATE-SPECIFIC ANTIGEN DIAGNOSTIC Lab Routine Prostate cancer (HCC) Expected: 06/01/2024, Expires: 08/31/2024 [facility] Work Phone: Comment on above: Expected: 06/01/2024 , Expires: 08/31/2024 Start: 11-28-2023 Advance Directive Discussion Advance Directive Discussion [facility] Start: 11-28-2023 Behavioral Health Screening Behavioral Health Screening [facility] Start: 07-29-2023 Covid-19 Vaccine () Covid-19 Vaccine () [facility] Start: 07-29-2023 Influenza vaccination Influenza Vacc ine (#1) [facility] Start: 2023 Pneumococcal Vaccine : 65+ Years (1 - PCV) Pneumococcal Vaccine: 65+ Years (1 - PCV) [facility] Start: 2018 RSV Vaccine (1 - 1-d ose 60+ series) RSV Vaccine (1 - 1-dose 60+ series) [facility] Start: 2013 Prostate specific antigen measurement Prostate Cancer Screening Discussion [facility] Start: 2008 Screening for malign ant neoplasm of lung Lung Cancer Screening [facility] Start: 2003 Diabetes Screening Diabetes Screenin g [facility] Start: 2003 Screening for malign ant neoplasm of colon [facility] Start: 1993 Lipid panel Lipid Screening [facility] Start: 1988 Zoledronic acid therapy Alpha- 1 Antitrypsin Deficiency Screening [facility] Start: 1976 Annual PCP Team Embryology Professor sully Disease Visit Annual PCP Team Chronic Disease Visit [facility] Start: 1976 Anxiety Screening Anxiety Screening [facility] Start: 1976 Depression Screening Depression Scre ening [facility] Start: 1976 Hepatitis C screening Hepatitis C Sc lissett [facility] Start: 1976 HIV screening HIV Screening [facility] Start: 1976 Spirometry Spirometry [facility] Start: 1964 Pneumococcal Vaccine : 65+ (1 of 2 - PCV) Pneumococcal Vaccine: 65+ (1 of 2 - PCV) [facility] Start: 1958 Abdominal aortic aneurysm screening Abdominal Aortic Aneurysm Screening [facility] Start: 1958 Medicare Annual Well ness (AWV) Medicare Annual Wellness (AWV) [facility] Start: 1958 Screening for malign ant neoplasm of colon [facility] BLOOD CULTURE 1 BLOOD CULTURE 1 Lab Routine 01/05/2024 4:58 PM EST [facility] BLOOD CULTURE 2 BLOOD CULTURE 2 Lab Routine 01/05/2024 5:04 PM EST [facility] CT Guidance for radiation treatment of Unspecified body region CT SIM PLANNING RADIATION ONCOLOGY Radiology Routine Malignant neoplasm of prostate (HCC) Ordered: 09/17/2024 [facility] Work Phone: Comment on above: Ordered: 09/17/2024 End: 06-01-2025 Prostate specific Ag [Mass/volume] in Serum or Plasma PROSTATE-SPECIFIC ANTIGEN DIAGNOSTIC Lab Routine Prostate cancer (HCC) Every 6 months for 3 Occurrences starting 06/01/2024 until 06/01/2025 [facility] Comment on above: Every 6 months for 3 Occurrences starting 06/01/2024 until 06/01/2025 Immunizations Immunization Date Immunization Notes Care Provider Fa hayleyty 08-17-2024 Pneumococcal Conjuga te PCV 20 Kathie Sánchez BACK STRIP MACHINE OPERATOR Work Phone: [facility] 08-17-2024 RSV, recombinant, protein subunit RSVpreF, adjuvant reconstitu, 120mcg/0.5mL, PF (Arexvy) Kathie Sánchez NP Work Phone: [facility] 09-17-2023 zoster vaccine recombinant Rufina VORA [facility] 07-04-2023 zoster vaccine recombinant Rufina VORA [facility] 09-25-2022 SARS-CoV-2 (COVID-19 ) [id number] Rufina VORA [facility] 05-26-2021 SARS-CoV-2 (COVID-19 ) mRNA BNT-162b2 vax Rufina VORA [facility] 05-05-2021 SARS-CoV-2 (COVID-19 ) mRNA BNT-162b2 vax Rufina VORA [facility] 03-11-2021 tetanus toxoid, redu liyah diphtheria toxoid, and acellular pertussis vaccine, adsorbed Rufinamichelle VORA [facility] Payers Date Payer Category Payer Unknown [facility] MEDIC[facility] ADVANT[facility] HMO [id number] 2023-Present [phone] [address] [place] [id number] [facility] [id number] 2022 Medicare [facility] [id number] 2022-Present [address] [place] [id number] 2022 Medicare (Managed Care) [facility] ADV[facility] Member Subscriber Plan / Payer (Effective 2022-Present) Name: Mateo Stearns Relation to Subscriber: Self Name: Mateo Stearns Payer ID: Not on file Group ID: [id number] Type: Not on file Address: [address] [id number] 2020 Medicaid [id number] 1959 Medicaid [id number] 1959 Medicare [id number] 1959 Unknown [id number] 1958 Unknown [id number] 2.16.840.1.526067.3.579.2. 593 1958 Unknown [id number] 2.16.840.1.606119.3.579.2. 593 1958 Unknown [id number] 2.16.840.1.121507.3.579.2. 593 1958 Unknown [id number] 2.16.840.1.532166.3.579.2. 593 1958 Unknown [id number] 2.16.840.1.246941.3.579.2. 593 1958 Unknown [id number] 2.16.840.1.780593.3.579.2. 593 1958 Unknown [id number] 2.16.840.1.140844.3.579.2. 593 1958 Unknown [id number] 2.16.840.1.493664.3.579.2. 593 1958 Unknown [id number] 2.16.840.1.242369.3.579.2. 727 1958 Unknown [id number] 2.16.840.1.615514.3.579.2. 727 1958 Unknown [id number] 2.16.840.1.769805.3.579.2. 727 1958 Unknown [id number] 2.16.840.1.058734.3.579.2. 727 1958 Unknown [id number] 2.16.840.1.816063.3.579.2. 727 1958 Unknown [id number] 2.16.840.1.559488.3.579.2. 9 1958 Unknown [id number] 2.16.840.1.081149.3.579.2. 9 1958 Unknown [id number] 2.16.840.1.975507.3.579.2. 9 1958 Unknown [id number] 2.16.840.1.624124.3.579.2. 1258 1958 Unknown [id number] 2.16.840.1.311458.3.579.2. 727 1958 Unknown [id number] 2.16.840.1.262153.3.579.2. 7 Self-pay Self Pay [id number] Social History Date Type Detail Facility Tobacco smoking stat [facility] Unknown if ever smoked [facility] Start: 1960 Sex Assigned At Male [facility] Start: 05-17-2022 End: 01-08-2025 Tobacco smoking status Ex-smoker (finding) [facility] Start: 11-13-2023 End: 02-28-2024 Sex Assigned At Male [facility] Tobacco smoking status Never [facility] Start: 11-28-1975 End: 11-28-2016 History of tobacco use Current smoker [facility] Start: 11-28-1975 End: 11-28-2016 History of tobacco use Cigarette Smoker [facility] Start: 11-13-2023 End: 02-28-2024 Cigarettes smoked current (pack per day) - Reported 2 [facility] Start: 11-13-2023 End: 01-02-2025 Alcohol intake Ex-drinker (finding) [facility] Start: 1960 Sex Assigned At Not on file [facility] Start: 05-16-2013 Tobacco smoking stat us [facility] Smokes tobacco daily [facility] Start: 05-16-2013 End: 09-11-2024 Tobacco use and exposure Smokeless tobacco non-user [facility] Start: 05-16-2013 Alcohol intake Current drinke r of alcohol (finding) [facility] Start: 06-21-2024 Alcohol Comment quit 2016 [facility] Within the last year , have you been afraid of your partner or ex-partner? No [facility] Do you belong to any clubs or organizations such as mandaen groups, unions, fraternal or athletic groups, or [...] 05-21-2024 Functional Status N/A [facility] 06-06-2023 Functional Status N/A [facility] 05-17-2023 Functional Status N/A [facility] 02-07-2023 Functional Status N/A [facility] 08-05-2022 N/A [facility] 06-11-2022 Functional Status N/A [facility] 05-17-2022 Functional Status N/A [facility] Clinical Notes 05-17-2022 to 01-02-2025 Karen Valdovinos [...] Medications (Ophthalmic Agents) Medication Sig Dispense Refill Axvwwiymxuq-Lmvvbvlx-Ovdrufbhn 1-0.5-0.075 % solution Administer 1 drop into [...] Do not crush, chew, or split.. HYDROcodone-acetaminophen (Spring) 5-325 MG tablet pantoprazole (ProtoNix) 40 MG [...] of pneumothorax History of tobacco abuse Hyperlipidemia ([facility]) Lobular atelectasis Neuropathy Prostate cancer ([facility]) Right lower lobe lung mass Scrotal mass [...] @ 11:08 AM Additional Tests Keratometry K1 [place] K2 [place] Right 42.25 2 43.50 92 Left 42.00 [...] +1.50 Type: OTC Manifest Refraction Sphere Cylinder [place] Right Left +3.50 -2.00 094 Final Rx [...] different lens options were explained including the jbl-la-xnokim fees for any upgrades. Intraocular lens (IOL) [...] OS - 02/25. documented in this encounter [facility] 12-12-2024 History of Present illness Narrative Radiation Oncology - Follow Up Note PATIENT NAME: Mateo Stearns PATIENT DIAGNOSIS: Prostate adenocarcinoma, initial PSA 4.46, biopsy Richards score 3 + 3 = 6 (grade [...] by: Severo Dent MD cc: Kathie Sánchez, STEAM CRANE OPERATOR ([facility]) [address] [place] [address] No referring provider defined for this encounter. AUA 2 Mona Melvin RN documented in this encounter [facility] 11-26-2024 Note HNO ID: [id number] Author: UMU NICOLAS LSW Service: ? Author Type: Agricultural Chemist Type: Progress Notes Filed: 11/26/2024 13:09 Note Text: SOCIAL WORK FOLLOW UP NOTE: [facility] Date of service:11/26/24 TOPICS ADDRESSED: community resources PLAN: Continue follow up as needed Assigned SW listed in Care Team tab: Yes SW completed and faxed October 2024 mileage reimbursement log to [facility]. SUSANNA Sotomayor [facility] 11-26-2024 History of Present illness Narrative SOCIAL WORK FOLLOW UP NOTE: [facility] Date of service:11/26/24 TOPICS ADDRESSED: community resources PLAN: Continue follow up as needed Assigned SW listed in Care Team tab: Yes SW completed and faxed October 2024 mileage reimbursement log to [facility]. SUSANNA Sotomayor documented in this encounter [facility] 11-02-2024 Note HNO ID: [id number] Author: Severo DENT MD Service: ? Author Type: Physician Type: Progress Notes Filed: 11/09/2024 11:44 Note Text: Radiation Oncology - On Treatment Review (OTR) Note PATIENT NAME: Mateo Stearns PATIENT DIAGNOSIS: Prostate adenocarcinoma, initial PSA 4.46, biopsy Richards score 3 + 3 = 6 (grade [...] well. Follow-up as scheduled. Severo Dent MD [facility] 11-02-2024 History of Present illness Narrative [...] Severo Dent MD documented in this encounter [facility] 11-02-2024 History of Present illness Narrative [facility] Radiation Oncology Department RADIATION ONCOLOGY - [...] KAYA :37 PM documented in this encounter [facility] 11-02-2024 Note HNO ID: [id number] Author: Severo DENT MD Service: ? Author Type: Physician Type: Progress Notes Filed: 11/08/2024 14:37 Note Text: [facility] Radiation Oncology Department RADIATION ONCOLOGY - COMPLETION NOTE PATIENT: MATEO STEARNS: 1960 DATES OF TREATMENT: 09/25/24 - 11/02/24 DIAGNOSIS: Prostate adenocarcinoma, initial PSA 4.46, biopsy Richards score 3 + 3 = 6 (grade [...] PM Electronically Signed cc: PROMISE Gil Dr. [facility] 10-29-2024 Note HNO ID: [id number] Author: Severo DENT MD Service: ? Author Type: Physician Type: Progress Notes Filed: 10/29/2024 10:54 Note Text: Radiation Oncology - On Treatment Review (OTR) Note PATIENT NAME: Mateo Stearns PATIENT DIAGNOSIS: Prostate adenocarcinoma, initial PSA 4.46, biopsy Richards score 3 + 3 = 6 (grade [...] week. Follow-up care discussed. Severo Dent MD [facility] 10-29-2024 History of Present illness Narrative [...] Severo Dent MD documented in this encounter [facility] 10-26-2024 Note HNO ID: [id number] Author: UMU NICOLAS LSW Service: ? Author Type: Agricultural Chemist Type: Progress Notes Filed: 10/26/2024 10:44 Note Text: SOCIAL WORK FOLLOW UP NOTE: [facility] Date of service:10/26/24 TOPICS ADDRESSED: community resources PLAN: Continue follow up as needed Assigned SW listed in Care Team tab: Yes SW completed and faxed September 2024 mileage reimbursement log to [facility] SUSANNA Sotomayor [facility] 10-26-2024 History of Present illness Narrative SOCIAL WORK FOLLOW UP NOTE: [facility] Date of service:10/26/24 TOPICS ADDRESSED: community resources PLAN: Continue follow up as needed Assigned SW listed in Care Team tab: Yes SW completed and faxed September 2024 mileage reimbursement log to [facility] SUSANNA Sotomayor documented in this encounter [facility] 10-22-2024 Note HNO ID: [id number] Author: Severo DENT MD Service: ? Author Type: Physician Type: Progress Notes Filed: 10/22/2024 10:51 Note Text: Radiation Oncology - On Treatment Review (OTR) Note PATIENT NAME: Mateo Stearns PATIENT DIAGNOSIS: Prostate adenocarcinoma, initial PSA 4.46, biopsy Richards score 3 + 3 = 6 (grade [...] Continue radiation as outlined. Severo Dent MD [facility] 10-22-2024 History of Present illness Narrative [...] Severo Dent MD documented in this encounter [facility] 10-16-2024 History of Present illness Narrative [...] and his symtpoms documented in this encounter [facility] 10-16-2024 Instructions Kathie Sánchez NP - 10/16/2024 11:00 AM EST Will give you some hand outs on stretching exercises Follow up in November 2024 for recheck documented in this encounter [facility] 10-15-2024 Note HNO ID: [id number] Author: Severo DENT MD Service: ? Author Type: Physician Type: Progress Notes Filed: 10/15/2024 15:22 Note Text: Radiation Oncology - On Treatment Review (OTR) Note PATIENT NAME: Mateo Stearns PATIENT DIAGNOSIS: Prostate adenocarcinoma, initial PSA 4.46, biopsy Richards score 3 + 3 = 6 (grade [...] recheck in 2 weeks. Severo Dent MD [facility] 10-15-2024 History of Present illness Narrative [...] Severo Dent MD documented in this encounter [facility] 10-11-2024 Nurse Note Mateo Stearns presents in office today for: Lab Draw only . Ordering Provider: Gopal Dent M.D. Test (s) ordered: CBC Method for obtaining blood: Phlebotomy was performed, accessing left antecubital vein. Needle removed intact. Dressing secured. Patient denies discomfort, dizziness, light-headedness or weakness and left the department without assist. Dayanna Call LPN [facility] 10-11-2024 Nurse Note Mateo Stearns presents in office today for: Lab Draw only . Ordering Provider: Gopal Dent M.D. Test (s) ordered: CBC Method for obtaining blood: Phlebotomy was performed, accessing left antecubital vein. Needle removed intact. Dressing secured. Patient denies discomfort, dizziness, light-headedness or weakness and left the department without assist. Dayanna Call LPN documented in this encounter [facility] 10-08-2024 Note HNO ID: [id number] Author: Severo DENT MD Service: ? Author [...] WBC recheck this week. Severo Dent MD [facility] 10-08-2024 History of Present illness Narrative Radiation Oncology - On Treatment Review (OTR) Note PATIENT NAME: Mateo Stearns PATIENT DIAGNOSIS: Prostate adenocarcinoma, initial PSA 4.46, biopsy Richards score 3 + 3 = 6 (grade [...] Severo Dent MD documented in this encounter [facility] 10-04-2024 Nurse Note Mateo Stearns presents in office today for: Lab Draw only . Ordering Provider: Gopal Dent M.D. Test (s) ordered: CBC Method for obtaining blood: Phlebotomy was performed, accessing left antecubital vein. Needle removed intact. Dressing secured. Patient denies discomfort, dizziness, light-headedness or weakness and left the department without assist. Dayanna Call LPN [facility] 10-04-2024 Nurse Note Mateo Stearns presents in office today for: Lab Draw only . Ordering Provider: Gopal Dent M.D. Test (s) ordered: CBC Method for obtaining blood: Phlebotomy was performed, accessing left antecubital vein. Needle removed intact. Dressing secured. Patient denies discomfort, dizziness, light-headedness or weakness and left the department without assist. Dayanna Call LPN documented in this encounter [facility] 10-01-2024 Note HNO ID: [id number] Author: Severo DENT MD Service: ? Author Type: Physician Type: Progress Notes Filed: 10/01/2024 10:51 Note Text: Radiation Oncology - On Treatment Review (OTR) Note PATIENT NAME: Mateo Stearns PATIENT DIAGNOSIS: Prostate adenocarcinoma, initial PSA 4.46, biopsy Richards score 3 + 3 = 6 (grade [...] Continue radiation as outlined. Severo Dent MD [facility] 10-01-2024 History of Present illness Narrative Radiation Oncology - On Treatment Review (OTR) Note PATIENT NAME: Mateo Stearns PATIENT DIAGNOSIS: Prostate adenocarcinoma, initial PSA 4.46, biopsy Richards score 3 + 3 = 6 (grade [...] Severo Dent MD documented in this encounter [facility] 09-25-2024 Note HNO ID: [id number] Author: UMU NICOLAS LSW Service: ? Author Type: Agricultural Chemist Type: Progress Notes Filed: 09/25/2024 14:02 Note Text: SOCIAL WORK FOLLOW UP NOTE: [facility] Date of service:09/25/24 TOPICS ADDRESSED: community resources PLAN: Continue follow up as needed Assigned SW listed in Care Team tab: Yes SW completed and faxed a mileage reimbursement form on the Patient's behalf to [facility] Services for the month of August 2024. SUSANNA Sotomayor [facility] 09-25-2024 History of Present illness Narrative SOCIAL WORK FOLLOW UP NOTE: [facility] Date of service:09/25/24 TOPICS ADDRESSED: community resources PLAN: Continue follow up as needed Assigned SW listed in Care Team tab: Yes SW completed and faxed a mileage reimbursement form on the Patient's behalf to [facility] for the month of August 2024. SUSANNA Sotomayor documented in this encounter [facility] 09-25-2024 History of Present illness Narrative Radiation Oncology - On Treatment Review (OTR) Note PATIENT NAME: Mateo Stearns PATIENT DIAGNOSIS: Prostate adenocarcinoma, initial PSA 4.46, biopsy Richards score 3 + 3 = 6 (grade [...] Severo Dent MD documented in this encounter [facility] 09-25-2024 Note HNO ID: [id number] Author: Severo DENT MD Service: ? Author [...] Continue radiation as prescribed. Severo Dent MD [facility] 09-24-2024 Telephone encounter Note CBC order pending your approval. Dayanna Call RN [facility] 09-24-2024 Miscellaneous Notes CBC order pending your approval. Dayanna Call RN documented in this encounter [facility] 09-18-2024 Note HNO ID: [id number] Author: UMU NICOLAS LSW Service: ? Author Type: Agricultural Chemist Type: Progress Notes Filed: 09/18/2024 14:01 Note Text: SOCIAL WORK FOLLOW UP NOTE: [facility] Date of service:09/18/24 Mateo Stearns [...] will follow up as appropriate. SUSANNA Sotomayor [facility] 09-18-2024 History of Present illness Narrative SOCIAL WORK FOLLOW UP NOTE: [facility] Date of service:09/18/24 Mateo Stearns [...] appropriate. SUSANNA Sotomayor documented in this encounter [facility] 09-17-2024 History of Present illness Narrative MATEO STEARNS [id number] 09/17/2024 [facility] Radiation Oncology Department SIMULATION NOTE DATE OF SIMULATION: 09/17/2024 THERAPIST: Sabina Rico MACHINE: Lexplique DIAGNOSIS: Malignant neoplasm of [id number] AREA: PELVIS CONTRAST: None <Select> Consent in [...] MARIUSZ 44:32 PM documented in this encounter [facility] 09-17-2024 History of Present illness Narrative MATEO STEARNS [id number] 09/17/2024 [facility] Department of Radiation Oncology Treatment Planning [...] M.D. :19 AM documented in this encounter [facility] 09-17-2024 Note HNO ID: [id number] Author: Severo DENT MD Service: ? Author Type: Physician Type: Progress Notes Filed: 09/18/2024 16:32 Note Text: MATEO STEARNS Schuyler [id number] 09/17/2024 [facility] Radiation Oncology Department SIMULATION NOTE DATE OF SIMULATION: 09/17/2024 THERAPIST: Sabina Rico MACHINE: Lexplique DIAGNOSIS: Malignant neoplasm of [id number] AREA: PELVIS CONTRAST: None Consent in Epic: [...] Gopal Dent M.D. / KG :32 PM [facility] 09-17-2024 Note HNO ID: [id number] Author: Severo DENT MD Service: ? Author Type: Physician Type: Progress Notes Filed: 09/26/2024 08:19 Note Text: MATEO STEARNS Schuyler [id number] 09/17/2024 [facility] Department of Radiation Oncology Treatment Planning [...] Electronically Signed Gopal Dent M.D. 48:19 AM [facility] 09-14-2024 Telephone encounter Note I called and spoke with the Patient and I have him scheduled with a PFA appointment (Phone call) to discuss his Financial Questions on 09/18/24 at 9 am. DARRIUS Mckee [facility] 09-14-2024 Miscellaneous Notes I called and [...] Mona Melvin RN documented in this encounter [facility] 09-14-2024 Telephone encounter Note PT called [...] Umu- please contact pt. Mona Melvin RN [facility] 09-13-2024 History of Present illness Narrative [...] per dr alves documented in this encounter [facility] 09-11-2024 Nurse Note Radiation Therapy - Patient Education Note PATIENT NAME: Mateo Stearns PATIENT September 11, 2024 [facility] FACILITY/LOCATION: [facility] READINESS TO [...] need for social work, van service, and warehouse hand. Was PED reviewed? No Patient has an Onbody or Implanted device: No Signed by: Dayanna Call RN [facility] 09-11-2024 Nurse Note Radiation Therapy - Patient Education Note PATIENT NAME: Mateo Stearns PATIENT September 11, 2024 [facility] FACILITY[facility]LOCATION: [facility] READINESS TO [...] need for social work, van service, and warehouse hand. Was PED reviewed? No Patient has an Onbody or Implanted device: No Signed by: Dayanna Call RN documented in this encounter [facility] 09-11-2024 History of Present illness Narrative Radiation Oncology - Prostate Cancer Follow-up note PATIENT NAME: Mateo Stearns PATIENT DIAGNOSIS: Prostate adenocarcinoma, initial PSA 4.46, biopsy Richards score 3 + 3 = 6 (grade group 1), clinical stage T1c, N0, M0, stage I [cT1a-c/T2a, N0, M0, PSA <10, GG 1] (AJCC 8th ed.), s/p TRUS Random biopsy. HPI: Patient in for follow-up to discuss treatment options again. Laboratory: thesixtyone genomic risk score: 0.43 (low risk) PSA. [...] ASSESSMENT/PLAN: Prostate adenocarcinoma, initial PSA 4.46, biopsy Richards score 3 + 3 = 6 (grade [...] by: Severo Dent MD cc: Kathie Sánchez, STEAM CRANE OPERATOR (Dr) [address] [place] [address] Rufina Vora [address] [place] [address] documented in this encounter [facility] 09-11-2024 Note HNO ID: [id number] Author: Severo DENT MD Service: ? Author Type: Physician Type: Progress Notes Filed: 09/18/2024 12:03 Note Text: Radiation Oncology - Prostate Cancer Follow-up note PATIENT NAME: Mateo Stearns PATIENT DIAGNOSIS: Prostate adenocarcinoma, initial PSA 4.46, biopsy Richards score 3 + 3 = 6 (grade group 1), clinical stage T1c, N0, M0, stage I [cT1a-c/T2a, N0, M0, PSA <10, GG 1] (AJCC 8th ed.), s/p TRUS Random biopsy. HPI: Patient in for follow-up to discuss treatment options again. Laboratory: thesixtyone genomic risk score: 0.43 (low risk) PSA. [...] ASSESSMENT/PLAN: Prostate adenocarcinoma, initial PSA 4.46, biopsy Richards score 3 + 3 = 6 (grade [...] by: Severo Dent MD cc: Kathie Sánchez, STEAM CRANE OPERATOR (Dr) [address] [place] [address] Rufina Vora [address] [place] [address] [facility] 09-11-2024 Nurse Note AUA= 3 [facility] 09-11-2024 Nurse Note AUA= 3 documented in this encounter [facility] 09-11-2024 Note Education (CARI) JINNYJOSE ANGELHEMA Schuyler ([id number]) 1960 M Date Time Provider Department 09/11/24 DAYANNA CALL RADGERARDO Reason for Visit: Patient Education [91] Visit Notes: >> Dayanna Call LPN e Sep 11, 2024 2:21 PM Status: Signed Radiation Therapy - Patient Education Note PATIENT NAME: Mateo Stearns PATIENT September 11, 2024 [facility] FACILITY[facility]LOC[facility]: [facility] READINESS TO [...] need for social work, van service, and warehouse hand. Was PED reviewed? No Patient has an [...] Encounter Status:Closed by DAYANNA CALL on 09/11/24 [facility] 07-12-2024 History of Present illness Narrative Radiation Oncology - Prostate Cancer Follow-up note PATIENT NAME: Mateo Stearns PATIENT DIAGNOSIS: 63 year old male with prostate adenocarcinoma, initial PSA 4.46, biopsy Richards score 3 + 3 = 6 (grade [...] ASSESSMENT/PLAN: Prostate adenocarcinoma, initial PSA 4.46, biopsy Richards score 3 + 3 = 6 (grade [...] by: Severo Dent MD cc: Kathie Sánchez, STEAM CRANE OPERATOR ([facility]) [address] [place] [address] Rufina Vora [address] [place] [address] documented in this encounter [facility] 07-12-2024 Note HNO ID: [id number] Author: Severo DENT MD Service: ? Author [...] ASSESSMENT/PLAN: Prostate adenocarcinoma, initial PSA 4.46, biopsy Richards score 3 + 3 = 6 (grade [...] by: Severo Dent MD cc: Kathie Sánchez, STEAM CRANE OPERATOR ([facility]) [address] [place] [address] Rufina Vora [address] [place] [address] [facility] 06-21-2024 Note HNO ID: [id number] Author: Severo DENT MD Service: ? Author [...] with elevated PSA and prostate biopsy demonstrating Richards 6 adenocarcinoma in 2 cores. (Left lateral [...] Chest: No respir (more content not included)... [facility] 06-21-2024 History of Present illness Narrative Radiation Oncology - Prostate Cancer New Patient/Consult Note PATIENT NAME: Mateo Stearns PATIENT REQUESTING PROVIDER: Dr. Voar DIAGNOSIS: 63 year old male with prostate [...] with elevated PSA and prostate biopsy demonstrating Richards 6 adenocarcinoma in 2 cores. (Left lateral [...] ASSESSMENT/PLAN: Prostate adenocarcinoma, initial PSA 4.46, biopsy Richards score 3 + 3 = 6 (grade [...] by: Severo Dent MD cc: Kathie Sánchez, STEAM CRANE OPERATOR ([facility]) [address] [place] [address] Rufina [address] [place] [address] documented in this encounter [facility] 06-21-2024 Nurse Note Pacemaker/Defibrillator?N Previous Cancer(s)?N Previous Radiation?N Lupus/Scleroderma?N On body monitoring device?N AUA= 5 [facility] 06-21-2024 Nurse Note Pacemaker/Defibrillator?N Previous Cancer(s)?N Previous Radiation?N Lupus/Scleroderma?N On body monitoring device?N AUA= 5 documented in this encounter [facility] 06-01-2024 Note HNO ID: [id number] Author: AMANDEEP CRISOSTOMO MD Service: ? Author Type: Physician Type: Progress Notes Filed: 06/24/2024 16:18 Note Text: Referring Provider: Chief Complaint: Recently diagnosed CaP HPI: 63 year old male from [place], [place] with a PMHx of COPD (40 [...] a biopsy with 8/18 cores positive for Richards 6 disease. Past surgical Hx: total hip [...] review Assessment 63 year old male from [place], [place] with a PMHx of COPD (40 pack-year smoker and poor oxygenation status), Afib (on ASA), and GERD diagnosed with CAP in 05/20 which showed 2 cores of Richards 6 disease. Recently had more + cores on a repeat biopsy and is here to discuss treatment options. He currently has low risk disease. We discussed the treatment options which include continued active surveillance, RARP, and XRT including EBRT or brachytherapy. Given patient's COPD status he may not be best candidate for surgery an (more content not included)... [facility] [place] [facility] 06-01-2024 History of Present illness Narrative Referring Provider: Chief Complaint: Recently diagnosed CaP HPI: 63 year old male from [place], [place] with a PMHx of COPD (40 [...] a biopsy with 8/18 cores positive for Richards 6 disease. Past surgical Hx: total hip [...] review Assessment 63 year old male from [place], [place] with a PMHx of COPD (40 [...] Amandeep Crisostomo MD documented in this encounter [facility] 06-01-2024 Note Patient Outreach (UR OLMN) MATEO STEARNS ([id number]) 1960 Date Time Provider Department 06/01/24 AMANDEEP CRISOSTOMO UROADYN During your visit today, we recorded the following information about you: Allergies As of Date: 06/01/2024 (No Known Allergies) Date Reviewed: 06/01/2024 Reviewed by: Garrett Davis MA - Fully Assessed Visit Diagnosis:Screening for genitourinary condition [Z13.89] Order(s):URINALYSIS, REFLEX MICROSCOPIC [MEB6411] Order #: [id number]. #:[id number] Prescriptions as of 06/04/2024 - aspirin, enteric [...] Encounter Status:Closed by NESHA DOYLE on 06/04/24 [facility] [place] [facility] 05-21-2024 Hospital Discharge instructions Patient Education [...] similar to normal prostate cells (moderately differentiated). Richards 8, 9, or 10: This indicates that [...] stress of having cancer. General instructions Take nfnx-uiz-kgxztmf and prescription medicines only as told by your health care provider. If you have to go to the hospital, notify your cancer specialist (oncologist). Keep all follow-up visits. This is important. Where to find more information [employer]: www.cancer.org [employer] Society of Clinical Oncology: www.cancer.net National Cancer [place]: www.cancer.gov Contact a health care provider if: [...] provider. Document Revised: 02/10/2022 Document Reviewed: 02/10/2022 [employer] Patient Education 2022 [employer]. Follow Up Care 01/02/2024 13:58:04 With:DIONY CHANDLER, Rufina Reina, URL Address: [facility] [address] , [place] [address]- [phone] When: Unknown [facility] 05-01-2024 Hospital Discharge instructions Patient Education 05/01/2024 [...] for your post-operative appointment in 1-2 weeks [phone] or [phone] Follow Up Care 03/15/2024 14:41:59 With:Rufina VORA Address: [address] [place] [address]- Business (1) When: Unknown Comments:Keep scheduled appointment [facility] 05-01-2024 Note [id number] [facility] 06-06-2023 Hospital Discharge instructions Patient Education [...] the likelihood that the cancer will spread. Richards 6 or lower: This indicates that the cancer cells look similar to normal prostate cells (well differentiated). Richards 7: This indicates that the cancer cells [...] stress of having cancer. General instructions Take byrt-ehr-mzicqhu and prescription medicines only as told by your health care provider. If you have to go to the hospital, notify your cancer specialist (oncologist). Keep all follow-up visits. This is important. Where to find more information [employer]: www.cancer.org [place] Society of Clinical Oncology: www.cancer.net National Cancer [place]: www.cancer.gov Contact a health care provider if: [...] provider. Document Revised: 02/10/2022 Document Reviewed: 02/10/2022 [employer] Patient Education 2022 [employer]. Follow Up Care 04/27/2023 15:15:09 With:DIONY CHANDLER, Rufina Reina, URL Address: [facility] [address], [place] [phone] When:Within 6 Month(s) Comments:PSA and ANNE-MARIE [facility] 05-17-2023 Hospital Discharge instructions Patient Education [...] for your post-operative appointment in 1-2 weeks [phone] or [phone] Follow Up Care 04/27/2023 15:25:07 With:Rufina VORA Address: [facility] [address] [place] [address]- Business (1) When: Unknown Comments:Keep scheduled appointment [facility] 02-07-2023 Hospital Discharge instructions Patient Education [...] if anything looks unusual. Men with a ldcuat-pzdr-ntsxjw risk for skin cancer may want to see a skin diving teacher (batch mixer) for an annual body check. Where to find more information National Cancer [place]: https://www.cancer.gov/about-canc er/screening Centers for Disease Control and Prevention: https://www.cdc.gov/cancer/dcpc/p revention/screening.htm [employer]: https://www.cancer.org/latest-new s/8-bpfsmb-rxzbknpqv-bxqay-tay-bt n.html Contact a health care provider if: [...] 08/11/2017 Document Revised: 08/03/2019 Document Reviewed: 08/11/2017 [employer]iction Patient Education 2020 [employer]. Follow Up Care 12/10/2022 10:33:39 With:DIONY CHANDLER, Rufina Reina, URL Address: [facility] [address], [place] [address]- When: Unknown [facility] 05-17-2022 Hospital Discharge instructions Patient Education 05/17/2022 13:40:29 Epidermal Cyst, Yyft-xs-Rtbb Epidermal Cyst An epidermal cyst is a [...] yourself. Follow these instructions at home: Take yqhe-dsc-xyvqvic and prescription medicines only as told by [...] the cyst, or to remove it. Take raau-bcw-skqliga and prescription medicines only as told by [...] 12/22/2005 Document Revised: 03/06/2020 Document Reviewed: 08/23/2019 [employer] Patient Education 2020 [employer]. 04/19/2022 08:23:29 Testicular Self-Exam Testicular Self-Exam A [...] 02/20/2002 Document Revised: 03/06/2020 Document Reviewed: 10/10/2017 [employer] Patient Education 2020 [employer]. Follow Up Care 03/17/2022 10:53:14 With:DIONY CHANDLER, Rufina Reina, URL Address: [facility] [address] , [place] [address]- When: Unknown [facility] Evaluation + Plan note Future Appointments Appointment Date:06/08/2022 08:45:00 AM Scheduled Provider: Location:[facility] Appointment Type:Urology CALL PAT FT Appointment Date:06/15/2022 09:00:00 AM Scheduled Provider: Location:[facility] Appointment Type:Urology FT [facility] Evaluation + Plan note Future Appointments Appointment Date:08/23/2022 12:30:00 PM Scheduled Provider:Rufina VORA MD Location:[facility] Appointment Type:URO Office Visit [facility] Evaluation + Plan note Future Appointments Appointment Date:06/06/2023 09:45:00 AM Scheduled Provider:Rufina VORA MD Location:[facility] Appointment Type:URO Office Visit Diagnostic Tests PendingProstate Histology ([facility]) 05/17/23 [facility] Evaluation + Plan note Future Appointments Appointment Date:12/09/2023 10:45:00 AM Scheduled Provider:Rufina VORA MD Location:[facility] Appointment Type:URO Office Visit Diagnostic Tests PendingPSA Total 06/06/23 [facility] Evaluation + Plan note Future Appointments Appointment Date:05/21/2024 11:30:00 AM Scheduled Provider:Rufina VORA MD Location:[facility] Appointment Type:URO Office Visit Diagnostic Tests PendingProstate Histology ([facility]) 05/01/24 [facility] Evaluation + Plan note [facility] Evaluation + Plan note Future Appointments Appointment Date:01/18/2025 10:30:00 AM Scheduled Provider:Rufina VORA MD Location:[facility] Appointment Type:URO Office Visit [facility] Evaluation note No Assessments Infor mation Available [facility] Evaluation note Diagnosis Screening for [...] Other chronic pain [facility] Diagnosis Malignant neoplasm of prostate (HCC)- Primary Malignant neoplasm of prostate [facility] Diagnosis Malignant neoplasm of prostate (HCC)- Primary Malignant neoplasm of prostate [facility] Diagnosis Malignant neoplasm of prostate (HCC)- Primary Malignant neoplasm of prostate [facility]* Diagnosis Malignant neoplasm of prostate (HCC)- Primary Malignant neoplasm of prostate [facility]* Diagnosis Malignant neoplasm of prostate (HCC)- Primary Malignant neoplasm of prostate [facility]* Diagnosis Malignant neoplasm of prostate (HCC) Malignant neoplasm of prostate [facility]* Diagnosis Malignant neoplasm of prostate (HCC)- Primary Malignant neoplasm of prostate [facility] Diagnosis Malignant neoplasm of prostate (HCC) Malignant neoplasm of prostate [facility]* Diagnosis Malignant neoplasm of prostate (HCC)- Primary Malignant neoplasm of prostate [facility] Diagnosis Encounter for subsequent annual wellness [...] neoplasm of prostate documented in this encounter [facility]* Diagnosis Malignant neoplasm of prostate (HCC)- Primary Malignant neoplasm of prostate documented in this encounter [facility] note* Diagnosis Malignant neoplasm of prostate (HCC)- Primary Malignant neoplasm of prostate documented in this encounter [facility] note* Diagnosis Malignant neoplasm of prostate (HCC)- Primary Malignant neoplasm of prostate documented in this encounter [facility] note* Diagnosis Encounter for subsequent annual wellness [...] both eyes- [facility] N[facility] No data available for this section [facility] Hospital Discharge instructions No data available for this section [facility] No data available for this section [facility] reason for referral (narrative) Referred by: DIONY CHANDLER, Rufina Reina [facility] Summary Purpose Family History No Family [...] 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 Severo Dent MD [address] [place] [address] [place] [address] Referral ID Status Reason Start Date Expiration Date Visits Requested Visits Authorized [id number] New Request PCP Requested Referral 4 12/16/2024 1 1 Additional Source Comments (unrecognized sect ion and content) No Status Records FoundNo Status Records FoundNo Status Records FoundNo Status Records FoundNo Status Records FoundNo Status Records Found INFORMATION SOURCE (unrecogn ized section and content) DATE CREATED AUTHOR 04/01/2021 [facility] DATE CREATED AUTHOR AUTHOR'S ORGANIZ ATION 04/13/2023 [facility] DATE CREATED AUTHOR AUTHOR'S ORGANIZ ATION 05/22/2024 [facility] DATE CREATED AUTHOR AUTHOR'S ORGANIZ ATION 12/15/2024 [facility] [place] [facility] DATE CREATED AUTHOR AUTHOR'S ORGANIZ ATION 01/04/2025 [facility] DATE CREATED AUTHOR AUTHOR'S ORGANIZ ATION 01/13/2025 [facility] Care Team (unrecognized sect ion and content) Blasting Clay Miner Relationship Specialty Start Date End Date Curt De Dios MD [address] [place] [address] PCP - General Family Medicine 11/11/23 Kathie Sánchez NP [address] [place] [address] Nurse Practitioner Family Medicine 10/03/23 Blasting Clay Miner Relationship Specialty Start Date End Date Peter Bhat DO PCP - General Family Medicine 05/11/13 Blasting [employer] Miner Relationship Specialty Start Date End Date Kathie Sánchez, STEAM CRANE OPERATOR [address] [place] [address] PCP - General Family Medicine 06/21/24 Blasting Clay Miner Relationship Specialty Start Date End Date Peter Bhat DO PCP - General Family Medicine 05/11/13 06/20/24 Blasting Clay Miner Relationship Specialty Start Date End Date Kathie Sánchez STEAM CRANE OPERATOR [address] [place] [address] PCP - General Family Medicine 06/21/24 Blasting Clay Miner Relationship Specialty Start Date End Date Kathie Sánchze NP [address] [place] [address] PCP - Crow LAFLEUR 12/29/23 Curt De Dios MD [address] [place] [address] PCP - General Family Medicine 02/28/24 Kathie Sánchez NP [address] [place] [address] Nurse Practitioner Family Medicine 10/03/23 Kathie Sánchez NP [address] [place] [address] Nurse Practitioner Family Medicine 02/28/24 Blasting [employer] Miner Relationship Specialty Start Date End Date Kathie Sánchez CNP [address] [place] [address] PCP - General Family Medicine 06/21/24 Blasting Clay Miner Relationship Specialty Start Date End Date Kathie Sánchez NP [address] [place] [address] PCP - Crow LAFLEUR 12/29/23 Curt De Dios MD [address] [place] [address] PCP - General Family Medicine 02/28/24 Kathie Sánchez NP [address] [place] [address] Nurse Practitioner Family Medicine 10/03/23 Kathie Sánchez NP [address] [place] [address] Nurse Practitioner Family Medicine 02/28/24 Blasting Clay Miner Relationship Specialty Start Date End Date Kathie Sánchez NP [address] [place] [address] PCP - Crow LAFLEUR 12/29/23 Curt De Dios MD [address] [place] [address] PCP - General Family Medicine 02/28/24 Kathie Sánchez NP [address] [place] [address] Nurse Practitioner Family Medicine 10/03/23 Kathie Sánchez NP [address] [place] [address] Nurse Practitioner Family Medicine 02/28/24 Blasting Clay Miner Relationship Specialty Start Date End Date Kathie Sánchez CNP [address] [place] [address] PCP - General Family Medicine 06/21/24 Blasting Clay Miner Relationship Specialty Start Date End Date Kathie Sánchez CNP [address] [place] [address] PCP - General Family Medicine 06/21/24 Blasting Clay Miner Relationship Specialty Start Date End Date Kathie Sánchez CNP [address] [place] [address] PCP - General Family Medicine 06/21/24 Umu Nicolas LSW Agricultural Chemist 09/18/24 Blasting Clay Miner Relationship Specialty Start Date End Date Kathie Sánchez CNP [address] [place] [address] PCP - General Family Medicine 06/21/24 Umu Nicolas LSW Agricultural Chemist 09/18/24 Blasting Clay Miner Relationship Specialty Start Date End Date Kathie Sánchez CNP [address] [place] [address] PCP - General Family Medicine 06/21/24 Umu Nicolas, YOKER MACHINE OPERATOR Agricultural Chemist 09/18/24 Blasting Clay Miner Relationship Specialty Start Date End Date Kathie Sánchez CNP [address] [place] [address] PCP - General Family Medicine 06/21/24 Umu Nicolas, YOKER MACHINE OPERATOR Agricultural Chemist 09/18/24 Blasting Clay Miner Relationship Specialty Start Date End Date Kathie Sánchez, STEAM CRANE OPERATOR [address] [place] [address] PCP - General Family Medicine 06/21/24 Umu Nicolas, YOKER MACHINE OPERATOR Agricultural Chemist 09/18/24 Blasting Clay Miner Relationship Specialty Start Date End Date Kathie Sánchez CNP [address] [place] [address] PCP - General Family Medicine 06/21/24 Umu Nicolas, YOKER MACHINE OPERATOR Agricultural Chemist 09/18/24 Blasting Clay Miner Relationship Specialty Start Date End Date Kathie Sánchez CNP [address] [place] [address] PCP - General Family Medicine 06/21/24 Umu Nicolas, YOKER MACHINE OPERATOR Agricultural Chemist 09/18/24 Blasting Clay Miner Relationship Specialty Start Date End Date Kathie Sánchez STEAM CRANE OPERATOR [address] [place] [address] PCP - General Family Medicine 06/21/24 Umu Nicolas, YOKER MACHINE OPERATOR Agricultural Chemist 09/18/24 Blasting Clay Miner Relationship Specialty Start Date End Date Kathie Sánchez NP [address] [place] [address] PCP - Crow LAFLEUR 12/29/23 Curt De Dios MD [address] [place] [address] PCP - General Family Medicine 02/28/24 Kathie Sánchez NP [address] [place] [address] Nurse Practitioner Family Medicine 10/03/23 Katihe Sánchez NP [address] [place] [address] Nurse Practitioner Family Medicine 02/28/24 Blasting Clay Miner Relationship Specialty Start Date End Date Kathie Sánchez CNP [address] [place] [address] PCP - General Family Medicine 06/21/24 Umu Nicolas, YOKER MACHINE OPERATOR Agricultural Chemist 09/18/24 Blasting Clay Miner Relationship Specialty Start Date End Date Kathie Sánchez CNP [address] [place] [address] PCP - General Family Medicine 06/21/24 Umu Nicolas LSW Agricultural Chemist 09/18/24 Blasting Clay Miner Relationship Specialty Start Date End Date Kathie Sánchez CNP [address] [place] [address] PCP - General Family Medicine 06/21/24 Umu Nicolas, YOKER MACHINE OPERATOR Agricultural Chemist 09/18/24 Blasting Clay Miner Relationship Specialty Start Date End Date Kathie Sánchez NP [address] [place] [address] PCP - Crow LAFLEUR 12/29/23 Curt De Dios MD [address] [place] [address] PCP - General Family Medicine 02/28/24 Kathie áSnchez NP [address] [place] [address] Nurse Practitioner Family Medicine 10/03/23 Kathie Sánchez NP [address] [place] [address] Nurse Practitioner Family Medicine 02/28/24 Blasting Clay Miner Relationship Specialty Start Date End Date Kathie Sánchez NP [address] [place] [address] PCP - Crow LAFLEUR 12/29/23 Curt De Dios MD [address] [place] [address] PCP - General Family Medicine 02/28/24 Kathie Sánchez NP [address] [place] [address] Nurse Practitioner Family Medicine 10/03/23 Kathie Sánchez NP [address] [place] [address] Nurse Practitioner Family Medicine 02/28/24 Blasting Clay Miner Relationship Specialty Start Date End Date Kathei Sánchez NP [address] [place] [address] PCP - Crow LAFLEUR 12/29/23 Curt De Dios MD [address] [place] [address] PCP - General Family Medicine 02/28/24 Kathie Sánchez NP [address] [place] [address] Nurse Practitioner Family Medicine 10/03/23 Kathie Sánchez NP [address] [place] [address] Nurse Practitioner Family Medicine 02/28/24 Blasting Clay Miner Relationship Specialty Start Date End Date Kathie Sánchez CNP [address] [place] [address] PCP - General Family Medicine 06/21/24 Umu Nicolas LSW Agricultural Chemist 09/18/24 Blasting Clay Miner Relationship Specialty Start Date End Date Kathie Sánchez CNP [address] [place] [address] PCP - General Family Medicine 06/21/24 Umu Nicolas LSW Agricultural Chemist 09/18/24 Blasting Clay Miner Relationship Specialty Start Date End Date Kathie Sánchez CNP [address] [place] [address] PCP - General Family Medicine 06/21/24 Umu Nicolas, YOKER MACHINE OPERATOR Agricultural Chemist 09/18/24 Blasting Clay Miner Relationship Specialty Start Date End Date Kathie Sánchez STEAM CRANE OPERATOR [address] [place] [address] PCP - General Family Medicine 06/21/24 Umu Nicolas, YOKER MACHINE OPERATOR Agricultural Chemist 09/18/24 Blasting Clay Miner Relationship Specialty Start Date End Date Kathie Sánchez STEAM CRANE OPERATOR [address] [place] [address] PCP - General Family Medicine 06/21/24 Umu Nicolas, YOKER MACHINE OPERATOR Agricultural Chemist 09/18/24 Blasting Clay Miner Relationship Specialty Start Date End Date Kathie Sánchez CNP [address] [place] [address] PCP - General Family Medicine 06/21/24 Umu Nicolas LSW Agricultural Chemist 09/18/24 Blasting Clay Miner Relationship Specialty Start Date End Date Kathie Sánchez NP [address] [place] [address] PCP - Crow LAFLEUR 12/29/23 Curt De Dios MD [address] [place] [address] PCP - General Family Medicine 02/28/24 Kathie Sánchez NP [address] [place] [address] Nurse Practitioner Family Medicine 10/03/23 Kathie Sánchez NP [address] [place] [address] Nurse Practitioner Family Medicine 02/28/24 Lissa Garza MA Family [facility] 12/05/24 Blasting Clay Miner Relationship Specialty Start Date End Date Kathie Sánchez NP [address] [place] [address] PCP - Crow LAFLEUR 12/29/23 Curt De Dios MD [address] [place] [address] PCP - General Family Medicine 02/28/24 Kathie Sánchez NP [address] [place] [address] Nurse Practitioner Family Medicine 10/03/23 Kathie Sánchez NP [address] [place] [address] Nurse Practitioner Family Medicine 02/28/24 Lissa Garza MA Family Medicine 12/05/24 Andrade Pendleton OD [address] [place] [address] [place] [address] Referring Physician Optometry 01/02/25 Source Comments (unrecognize d section and content) In the event this informatio n is protected by the Federal Confidentiality of Alcohol and Drug Abuse Patient Records regulations: The Federal rules restrict any use of the information to criminally investigate or prosecute any alcohol or drug abuse patient.[facility] event this information is protected by the Federal Confidentiality of Alcohol and Drug Abuse Patient Records regulations: The Federal rules restrict any use of the information to criminally investigate or prosecute any alcohol or drug abuse patient.[facility] the event this information is protected by the Federal Confidentiality of Alcohol and Drug Abuse Patient Records regulations: The Federal rules restrict any use of the information to criminally investigate or prosecute any alcohol or drug abuse patient.[facility] the event this information is protected by the Federal Confidentiality of Alcohol and Drug Abuse Patient Records regulations: The Federal rules restrict any use of the information to criminally investigate or prosecute any alcohol or drug abuse patient.[facility] the event this information is protected by the Federal Confidentiality of Alcohol and Drug Abuse Patient Records regulations: The Federal rules restrict any use of the information to criminally investigate or prosecute any alcohol or drug abuse patient.[facility] the event this information is protected by the Federal Confidentiality of Alcohol and Drug Abuse Patient Records regulations: The Federal rules restrict any use of the information to criminally investigate or prosecute any alcohol or drug abuse patient.[facility] Hospital[facility] the event this information is protected by the Federal Confidentiality of Alcohol and Drug Abuse Patient Records regulations: The Federal rules restrict any use of the information to criminally investigate or prosecute any alcohol or drug abuse patient.[facility] HospitalIn the event this information is protected by the Federal Confidentiality of Alcohol and Drug Abuse Patient Records regulations: The Federal rules restrict any use of the information to criminally investigate or prosecute any alcohol or drug abuse patient.[facility]In the event this information is protected by the Federal Confidentiality of Alcohol and Drug Abuse Patient Records regulations: The Federal rules restrict any use of the information to criminally investigate or prosecute any alcohol or drug abuse patient.[facility] the event this information is protected by the Federal Confidentiality of Alcohol and Drug Abuse Patient Records regulations: The Federal rules restrict any use of the information to criminally investigate or prosecute any alcohol or drug abuse patient.[facility]In the event this information is protected by the Federal Confidentiality of Alcohol and Drug Abuse Patient Records regulations: The Federal rules restrict any use of the information to criminally investigate or prosecute any alcohol or drug abuse patient.[facility] Hospital[facility] the event this information is protected by the Federal Confidentiality of Alcohol and Drug Abuse Patient Records regulations: The Federal rules restrict any use of the information to criminally investigate or prosecute any alcohol or drug abuse patient.[facility] the event this information is protected by the Federal Confidentiality of Alcohol and Drug Abuse Patient Records regulations: The Federal rules restrict any use of the information to criminally investigate or prosecute any alcohol or drug abuse patient.[facility] the event this information is protected by the Federal Confidentiality of Alcohol and Drug Abuse Patient Records regulations: The Federal rules restrict any use of the information to criminally investigate or prosecute any alcohol or drug abuse patient.[facility] HospitalIn the event this information is protected by the Federal Confidentiality of Alcohol and Drug Abuse Patient Records regulations: The Federal rules restrict any use of the information to criminally investigate or prosecute any alcohol or drug abuse patient.[facility] the event this information is protected by the Federal Confidentiality of Alcohol and Drug Abuse Patient Records regulations: The Federal rules restrict any use of the information to criminally investigate or prosecute any alcohol or drug abuse patient.[facility] Hospital[facility] the event this information is protected by the Federal Confidentiality of Alcohol and Drug Abuse Patient Records regulations: The Federal rules restrict any use of the information to criminally investigate or prosecute any alcohol or drug abuse patient.[facility] HospitalIn the event this information is protected by the Federal Confidentiality of Alcohol and Drug Abuse Patient Records regulations: The Federal rules restrict any use of the information to criminally investigate or prosecute any alcohol or drug abuse patient.[facility] HospitalIn the event this information is protected by the Federal Confidentiality of Alcohol and Drug Abuse Patient Records regulations: The Federal rules restrict any use of the information to criminally investigate or prosecute any alcohol or drug abuse patient.[facility] HospitalIn the event this information is protected by the Federal Confidentiality of Alcohol and Drug Abuse Patient Records regulations: The Federal rules restrict any use of the information to criminally investigate or prosecute any alcohol or drug abuse patient.[facility] HospitalIn the event this information is protected by the Federal Confidentiality of Alcohol and Drug Abuse Patient Records regulations: The Federal rules restrict any use of the information to criminally investigate or prosecute any alcohol or drug abuse patient.[facility] HospitalIn the event this information is protected by the Federal Confidentiality of Alcohol and Drug Abuse Patient Records regulations: The Federal rules restrict any use of the information to criminally investigate or prosecute any alcohol or drug abuse patient.[facility] HospitalIn the event this information is protected by the Federal Confidentiality of Alcohol and Drug Abuse Patient Records regulations: The Federal rules restrict any use of the information to criminally investigate or prosecute any alcohol or drug abuse patient.[facility] HospitalIn the event this information is protected by the Federal Confidentiality of Alcohol and Drug Abuse Patient Records regulations: The Federal rules restrict any use of the information to criminally investigate or prosecute any alcohol or drug abuse patient.[facility] HospitalIn the event this information is protected by the Federal Confidentiality of Alcohol and Drug Abuse Patient Records regulations: The Federal rules restrict any use of the information to criminally investigate or prosecute any alcohol or drug abuse patient.[facility] HospitalIn the event this information is protected by the Federal Confidentiality of Alcohol and Drug Abuse Patient Records regulations: The Federal rules restrict any use of the information to criminally investigate or prosecute any alcohol or drug abuse patient.[facility] Reason for Visit (unrecogniz ed section [...] BE BASED ON THE PRIMARY CLINICAL RECORDS. [facility] [employer] [facility]. provides no warranty or guarantee of the accuracy or completeness of information in this document.
[2025-01-14] MEDS: OSELTAMIVIR PHOSPHATE 75 MG CAPSULE PO (01:16)
--- NOTE | 2025-01-14 01:54 | PC.NURSE ---
Pt's daughter in law Xiomara called and asked for an update. This RN asked pt if he was okay for information to be shared over the phone with her, pt stated that she could have information. Update provided to Xiomara over the phone at this time.
[2025-01-14] MEDS: HYDROMORPHONE HCL 1 MG/ML CARTRIDGE IVP (04:05)
[2025-01-14] MEDS: ALBUTEROL SULFATE 2.5 MG/3 ML VIAL NEB IH ×4 (04:10→20:31)
[2025-01-14 04:41] LABS: Bilirubin Urine SMALL (NEGATIVE); Blood Urine NEGATIVE (NEGATIVE); Clarity Urine CLEAR (CLEAR); Color Urine YELLOW (YELLOW); Glucose Urine UA NEGATIVE (NEGATIVE); Ketones Urine 15 mg/dL (NEGATIVE); Leukocyte Esterase Urine NEGATIVE (NEGATIVE); Nitrite Urine NEGATIVE (NEGATIVE); Protein Urine 30 mg/dL (NEG/TRACE); Specific Gravity Urine >=1.030 (1.005-1.025); Urobilinogen Urine 0.2 EU/dL (0.2-1.0); pH Urine 5.5 (5.0-9.0)
[2025-01-14 04:49] LABS: Bacteria Urine TRACE #/HPF (NONE SEEN); Cast Seen? SEEN #/LPF (NONE SEEN); Coarse Granular Casts Urine RARE; Crystals Seen? None Seen #/HPF (None Seen); Mucus Urine NONE SEEN (NONE SEEN); RBC Urine 0-2 #/HPF (0-2); Squamous Epithelial Cell Urine NONE SEEN #/LPF (NONE/RARE); Urine Culture Indicated NO; WBC Urine 0-2 #/HPF (NONE SEEN); White Blood Cell Casts Urine RARE
[2025-01-14 06:18] LABS: Basophils Percent Auto 0.2 % (0.2-2.0); Hematocrit 37.3 % (42.0-54.0); Hemoglobin 12.1 g/dL (14.0-18.0); Immature Granulocytes Abs Auto 0.06 10^3/uL (0.00-0.03); Immature Granulocytes Pct Auto 0.9 % (0.0-0.5); Lymphocytes Absolute Auto 0.8 10^3/uL (1.2-3.8); Lymphocytes Percent Auto 12.7 % (20.5-60.0); Mean Corpuscular HGB Conc 32.4 g/dL (29.9-35.2); Mean Corpuscular Hemoglobin 29.7 pg (25.9-34.0); Mean Corpuscular Volume 91.6 fL (80.0-94.0); Mean Platelet Volume 8.8 fL (9.5-13.5); Monocytes Absolute Auto 0.4 10^3/uL (0.3-0.8); Monocytes Percent Auto 6.5 % (1.7-12.0); Neutrophils Absolute Auto 5.3 10^3/uL (1.4-6.5); Neutrophils Percent Auto 79.7 % (43.0-75.0); Platelet Count 192 10^3/uL (150-450); Red Blood Count 4.07 10^6/uL (4.70-6.10); Red Cell Distribution Width 13.8 % (11.0-15.0); White Blood Count 6.6 10^3/uL (4.0-11.0)
[2025-01-14 06:34] LABS: Anion Gap 13.4; BUN Creatinine Ratio 14.4; Carbon Dioxide 26.1 mmol/L (21.0-32.0); Chloride 104 mmol/L (98-107); Estimated GFR (African America >60 (>=60 mL/min/1.73m^2); Estimated GFR (Non-African Ame >60 (>=60 mL/min/1.73m^2); Glucose 90 mg/dL (74-106); Magnesium 1.8 mg/dL (1.8-2.4); Potassium 3.5 mmol/L (3.5-5.1); Sodium 140 mmol/L (136-145)
[2025-01-14] MEDS: 0.9 % SODIUM CHLORIDE 1,000 ML 100 ML IV (08:22)
[2025-01-14] MEDS: ENOXAPARIN SODIUM 40 MG/0.4 ML SYRINGE SUBQ (08:23)
[2025-01-14] MEDS: ASPIRIN 81 MG TABLET.DR PO (08:23)
[2025-01-14] MEDS: DOCUSATE SODIUM 100 MG CAPSULE 200 MG PO (08:23)
[2025-01-14] MEDS: HYDROCODONE/ACET 5-325 MG TABLET 2 TAB PO ×2 (08:23→16:53)
[2025-01-14] MEDS: OMEPRAZOLE 40 MG CAPSULE.DR PO (08:23)
[2025-01-14] MEDS: ROFLUMILAST 500 MCG TABLET PO (08:23)
[2025-01-14] MEDS: DILTIAZEM HCL 180 MG CAP.ER.24H PO (08:23)
[2025-01-14] MEDS: PREDNISONE 10 MG TABLET PO (11:00)
[2025-01-14] MEDS: SODIUM CHLORIDE 0.65% OCEAN NASAL SPRAY 2 SPRAY NS ×2 (11:00→21:04)
--- NOTE | 2025-01-14 11:07 | PM.HP ---
HPI H&P: HPI History of Present Illness Chief complaint: FALL,RT HIP FX, COPD Narrative: 64 y/o male to ER with right hip pain after a fall. History of COPD on home oxygen. Walking outside and missed a step landing on right hip. Severe pain and unable to get up. History of bilateral hip replacements. Severe pain to bear weight and to ER. Recently to ER with GI symptoms and enteritis. Reports worsening cough over past few days. In ER x-ray showed normal hardware but nondisplaced fracture of femur. Influenza A positive. Admitted for treatment. Started tamiflu. Reports pain improved with medication. No pain at rest but pain if put weight or try to move leg. Opioid HPI Opioid Management Most Recent Pain and Opioid Data: Last Pain Scale 0 01/14/25 11:01 01/14/25 Last Pain Assessment 01/14/25 11:01 Last MAR Pain Assessment 01/14/25 08:23 Last ORT Total Score 3 01/14/25 01:09 01/14/25 Last ORT Risk Category Low Risk 01/14/25 01:09 01/14/25 Review of Systems ROS Constitutional Denies: fever, chills or fatigue Cardiovascular Denies: chest pain, palpitations or edema Respiratory Reports: shortness of breath, cough and wheezing Gastrointestinal Reports: abdominal pain and nausea; Denies: vomiting or diarrhea Genitourinary Denies: painful urination [facility] Medical History (Updated 01/14/25 @ 09:18 by Curt De Dios MD) Upper respiratory infection ?J06.9 - Acute upper respiratory infection, unspecified (ICD-10) Acute infective exacerbation of chronic obstructive airway disease ?J44.1 - Chronic obstructive pulmonary disease with (acute) exacerbation (ICD-10) Community acquired pneumonia ?J18.9 - Pneumonia, unspecified organism (ICD-10) Thoracic back pain ?M54.6 - Pain in thoracic spine (ICD-10) Enteritis ?K52.9 - Noninfective gastroenteritis and colitis, unspecified (ICD-10) Social History Little interest or pleasure in doing things: not at all Feeling down, depressed, or hopeless: not at all Meds Home Medications and Allergies Home Medications ?Medication ?Instructions ?Recorded ?Confirmed ?Type albuterol sulfate 90 mcg/actuation 2 inh inhalation Q4H PRN shortness 01/05/24 01/14/25 History aerosol inhaler of breath or wheezing aspirin 81 mg tablet,delayed 81 mg PO DAILY 01/05/24 01/13/25 History release budesonide-formoterol HFA 160 2 puff inhalation BID 01/05/24 01/13/25 History mcg-4.5 mcg/actuation aerosol inhaler diltiazem HCl 180 mg 180 mg PO DAILY 01/05/24 01/13/25 History capsule,extended release 24 hr, controlled pantoprazole 40 mg tablet,delayed 40 mg PO DAILY 01/05/24 01/13/25 History release roflumilast 500 mcg tablet 500 mcg PO DAILY 01/05/24 01/13/25 History albuterol sulfate 2.5 mg/3 mL 2.5 mg (3 mL) inhalation Q6H PRN 11/28/24 01/13/25 Rx (0.083 %) solution for nebulization shortness of breath or wheezing #90 mL ibuprofen 800 mg tablet 800 mg PO Q8H PRN pain 01/13/25 01/14/25 History prednisone 10 mg tablet 10 mg PO DAILY 01/13/25 01/14/25 History tizanidine 4 mg tablet 4 mg PO BEDTIME PRN muscle spasm 01/13/25 01/14/25 History cyclosporine 0.05 % eye drops in a 1 drp ophthalmic (eye) BID 01/14/25 01/14/25 History dropperette Allergies Allergy/AdvReac Type Severity Reaction Status Date / Time No Known Drug Allergies Allergy Verified 01/13/25 18:12 Exam Constitutional Vital Signs, click to edit/add: Last Vital Signs Temp 98.0 F 01/14/25 07:45 Pulse 105 H 01/14/25 10:00 Resp 20 01/14/25 07:45 BP 150/77 H 01/14/25 07:45 Pulse Ox 92 L 01/14/25 07:45 O2 Del Method Nasal Cannula 01/14/25 07:45 O2 Flow Rate 3 01/14/25 07:45 Documenting provider has reviewed patient's vital signs: yes Common normals: no apparent distress, oriented x3 and alert HENMT Common normals: normocephalic Eye Common normals: PERRL and EOMs intact bilaterally Respiratory Common normals: normal respiratory effort and clear to auscultation bilaterally Cardio Common normals: regular rate, regular rhythm, no gallops, no murmurs and no rub GI Common normals: Normal to inspection, nondistended, normoactive bowel sounds present and non-tender Extremity Common normals: no pedal edema Results Labs Labs: Short CBC 01/13/25 01/14/25 Range/Units 20:05 05:44 WBC 7.3 6.6 (4.0-11.0) 10^3/uL Hgb 12.4 L 12.1 L (14.0-18.0) g/dL Hct 36.6 L 37.3 L (42.0-54.0) % Plt Count 173 192 (150-450) 10^3/uL BMP 01/13/25 01/14/25 21:04 05:44 Sodium 140 140 Potassium 4.6 3.5 Chloride 106 104 Carbon Dioxide 25.8 26.1 BUN 17.0 15.0 Creatinine 1.07 1.04 Glucose 90 90 Calcium 7.5 L 8.0 L Urine 01/14/25 Range/Units 04:00 Urine Color Yellow (YELLOW) Urine Clarity Clear (CLEAR) Urine pH 5.5 (5.0-9.0) Ur Specific [place] >=1.030 A (1.005-1.025) Urine Protein 30 A (NEG/TRACE) mg/dL Urine Glucose (UA) Negative (NEGATIVE) mg/dL Assessment and Plan Assessment and Plan (1) Closed fracture of proximal end of femur: (2) S/P bilateral hip replacements: (3) Influenza A: (4) Chronic hypoxic respiratory failure: (5) COPD (chronic obstructive pulmonary disease): (6) Paroxysmal atrial fibrillation: (7) Fall from standing: Plan Found hip fracture after fall and ER stated not surgical. Consult ortho for weight bearing status. Continue norco for pain. Resume home medication. Started on tamiflu for influenza. Will start PT/OT. Plan for at least a 2 midnight stay for inpatient medically necessary services.
[2025-01-14] MEDS: BUDESONIDE 0.5 MG/2 ML AMPULE NEB IH ×2 (11:11→20:31)
--- NOTE | 2025-01-14 11:21 | CM.NOTE ---
Rounds made with Dr. De Dios, pt changed to inpatient status and consulted ortho for further recommendations. PT will evaluate pt for discharge planning.
--- NOTE | 2025-01-14 11:30 | CM.NOTE ---
Important Message From Medicare discussed with pt, pt verbalizes understanding and signs paper. Original given to pt and copy placed on pt's chart.
--- NOTE | 2025-01-14 15:10 | P.ORCN_ITS ---
History of Present Illness [facility] Consult date: 01/14/25 Requesting physician: Curt De Dios Chief complaint: FALL,RT HIP FX, COPD Narrative: Patient is a 64-year-old male with a past surgical history of bilateral total hip arthroplasties that suffered a fall from standing yesterday after attempting to go down 1 step. Patient had presented to the emergency department where a periprosthetic right femur fracture was noted on x-ray. Ortho was consulted for further evaluation and management. Patient states that he fell directly onto his right leg and was not able to place much weight onto this extremity after the fall. Today his pain is controlled. He does also have influenza A and has been short of breath and is on oxygen currently as well. [facility] Medical History (Updated 01/14/25 @ 09:18 by Curt De Dios MD) Upper respiratory infection ?J06.9 - Acute upper respiratory infection, unspecified (ICD-10) Acute infective exacerbation of chronic obstructive airway disease ?J44.1 - Chronic obstructive pulmonary disease with (acute) exacerbation (ICD-10) Community acquired pneumonia ?J18.9 - Pneumonia, unspecified organism (ICD-10) Thoracic back pain ?M54.6 - Pain in thoracic spine (ICD-10) Enteritis ?K52.9 - Noninfective gastroenteritis and colitis, unspecified (ICD-10) Social History Little interest or pleasure in doing things: not at all Feeling down, depressed, or hopeless: not at all Meds Home Medications and Allergies Home Medications ?Medication ?Instructions ?Recorded ?Confirmed ?Type albuterol sulfate 90 mcg/actuation 2 inh inhalation Q4H PRN shortness 01/05/24 01/14/25 History aerosol inhaler of breath or wheezing aspirin 81 mg tablet,delayed 81 mg PO DAILY 01/05/24 01/13/25 History release budesonide-formoterol HFA 160 2 puff inhalation BID 01/05/24 01/13/25 History mcg-4.5 mcg/actuation aerosol inhaler diltiazem HCl 180 mg 180 mg PO DAILY 01/05/24 01/13/25 History capsule,extended release 24 hr, controlled pantoprazole 40 mg tablet,delayed 40 mg PO DAILY 01/05/24 01/13/25 History release roflumilast 500 mcg tablet 500 mcg PO DAILY 01/05/24 01/13/25 History albuterol sulfate 2.5 mg/3 mL 2.5 mg (3 mL) inhalation Q6H PRN 11/28/24 01/13/25 Rx (0.083 %) solution for nebulization shortness of breath or wheezing #90 mL ibuprofen 800 mg tablet 800 mg PO Q8H PRN pain 01/13/25 01/14/25 History prednisone 10 mg tablet 10 mg PO DAILY 01/13/25 01/14/25 History tizanidine 4 mg tablet 4 mg PO BEDTIME PRN muscle spasm 01/13/25 01/14/25 History cyclosporine 0.05 % eye drops in a 1 drp ophthalmic (eye) BID 01/14/25 01/14/25 History dropperette Allergies Allergy/AdvReac Type Severity Reaction Status Date / Time No Known Drug Allergies Allergy Verified 01/13/25 18:12 Exam Narrative Exam Narrative: On exam patient patient has some shortness of breath with speaking, nasal cannula in place, in no distress, alert and oriented x 3. On inspection of the right thigh there is a scar on the lateral thigh, no ecchymosis, no erythema, tenderness with palpation of the thigh. Attempting to move the right knee causes too much pain. Thigh compartments are soft and compressible. Sensation is intact bilateral lower extremities. 2+ DP pulse palpated. 5/5 dorsiflexion/plantarflexion. Constitutional Vital Signs, click to edit/add: Last Vital Signs Temp 97.8 F 01/14/25 11:41 Pulse 90 01/14/25 14:00 Resp 20 01/14/25 11:41 BP 150/74 H 01/14/25 11:41 Pulse Ox 90 L 01/14/25 11:41 O2 Del Method Nasal Cannula 01/14/25 11:41 O2 Flow Rate 5 01/14/25 11:41 Results Labs Labs: Abnormal lab results 01/13/25 01/13/25 01/13/25 Range/Units 19:15 20:05 21:04 RBC 4.08 L (4.70-6.10) 10^6/uL Hgb 12.4 L (14.0-18.0) g/dL Hct 36.6 L (42.0-54.0) % MPV (9.5-13.5) fL Neut % (Auto) 83.6 H (43.0-75.0) % Lymph % (Auto) 9.8 L (20.5-60.0) % Eos % (Auto) 0.0 L (0.9-7.0) % Lymph # (Auto) 0.7 L (1.2-3.8) 10^3/uL Abs Immat Gran (auto) 0.11 H (0.00-0.03) 10^3/uL Imm/Tot Granulo (auto) 1.5 H (0.0-0.5) % Calcium 7.5 L (8.5-10.1) mg/dL Ur Specific [place] (1.005-1.025) Urine Protein (NEG/TRACE) mg/dL Urine Ketones (NEGATIVE) mg/dL Urine Bilirubin (NEGATIVE) Urine WBC (NONE SEEN) #/HPF Urine Bacteria (NONE SEEN) #/HPF Urine Casts (NONE SEEN) #/LPF Influenza Type A Ag Positive A 01/14/25 01/14/25 Range/Units 04:00 05:44 RBC 4.07 L (4.70-6.10) 10^6/uL Hgb 12.1 L (14.0-18.0) g/dL Hct 37.3 L (42.0-54.0) % MPV 8.8 L (9.5-13.5) fL Neut % (Auto) 79.7 H (43.0-75.0) % Lymph % (Auto) 12.7 L (20.5-60.0) % Eos % (Auto) 0.0 L (0.9-7.0) % Lymph # (Auto) 0.8 L (1.2-3.8) 10^3/uL Abs Immat Gran (auto) 0.06 H (0.00-0.03) 10^3/uL Imm/Tot Granulo (auto) 0.9 H (0.0-0.5) % Calcium 8.0 L (8.5-10.1) mg/dL Ur Specific [place] >=1.030 A (1.005-1.025) Urine Protein 30 A (NEG/TRACE) mg/dL Urine Ketones 15 A (NEGATIVE) mg/dL Urine Bilirubin Small A (NEGATIVE) Urine WBC 0-2 A (NONE SEEN) #/HPF Urine Bacteria Trace A (NONE SEEN) #/HPF Urine Casts Seen A (NONE SEEN) #/LPF Influenza Type A Ag H & H 01/13/25 01/14/25 Range/Units 20:05 05:44 Hgb 12.4 L 12.1 L (14.0-18.0) g/dL Hct 36.6 L 37.3 L (42.0-54.0) % All other labs normal. Assessment and Plan Assessment and Plan (1) Closed fracture of proximal end of femur: Assessment and Plan: Right periprosthetic femur fracture -X-rays of the right hip were reviewed from the ED from 01/13 that reveal a lucent line through the subtrochanteric region, suspicious for nondisplaced fracture. -Nonweightbearing right lower extremity x 6 weeks -Pain control, PT/OT evaluation -From Ortho standpoint patient can discharge if pain remains controlled -Follow-up with Dr. Mart in 2 weeks Discussed with my Supervising Physician, Dr Mart. (2) S/P bilateral hip replacements: (3) Influenza A: (4) Chronic hypoxic respiratory failure: (5) COPD (chronic obstructive pulmonary disease): (6) Paroxysmal atrial fibrillation: (7) Fall from standing:
--- NOTE | 2025-01-14 15:27 | CM.NOTE ---
Discussed with pt PT recommendations for skilled therapy at discharge. Pt is in agreement and would like to see if [facility] any bed availability. SW updated on pt's choice and she will send referral.
--- NOTE | 2025-01-14 15:42 | SWNOTE1 ---
See case management note. Recommended SNF for pt. Pt is agreeable and wants the [facility]. Referral sent to [facility]. Referral included face sheet, ED note, H&P, provider notes, case management report, ortho consult, nursing notes, diagnostic imaging, med list, and PT/OT notes.
--- NOTE | 2025-01-14 15:51 | SWNOTE1 ---
SW called [employer] and pt is prescribed 2 liters of home 02 continuous and this was from 07/18/22. SW let nurse know.
--- NOTE | 2025-01-14 16:22 | SWNOTE1 ---
ROMA received call from Ash at [facility]. She voiced they can accept, but wants pt to be aware that his insurance will likely not cover for 6 weeks on non weight bearing. There is a chance his insurance will cut him. Ash also asking about emergency contacts. ROMA to verify. ROMA spoke to pt. Pt is aware his insurance will likely cut him as he went through this with his mother. Pt is hoping to get home sooner. SW also asked about emergency contacts. Pt would like his grandson, Alexandre to be primary and Liana to be second contact. SW to call and update with registration. Pt did ask about how it will work with his 5 year old grandson. He is with his mom now. They are on good terms. He has legal custody of grandson. SW advised that he should call his tread cutter to see since he is going to rehab. Pt voiced understanding. SW called registration and updated the contacts.
--- NOTE | 2025-01-14 16:27 | SWNOTE1 ---
SW checked for PT note again to send to [facility], no note in yet.
[2025-01-14] MEDS: CYCLOSPORINE 0.05% 1 EACH OP (23:00)
[2025-01-15] VITALS (21 sets, daily range): BP systolic 106–168; BP diastolic 60–84; PULSE 72–114; TEMP 36.4–36.7; O2SAT 85–99
[2025-01-15] MEDS: TIZANIDINE HCL 4 MG TABLET PO (01:15)
[2025-01-15] MEDS: ALBUTEROL SULFATE 2.5 MG/3 ML VIAL NEB IH (04:01)
[2025-01-15 06:17] LABS: Basophils Percent Auto 0.2 % (0.2-2.0); Eosinophils Percent Auto 0.2 % (0.9-7.0); Hematocrit 33.7 % (42.0-54.0); Immature Granulocytes Abs Auto 0.05 10^3/uL (0.00-0.03); Immature Granulocytes Pct Auto 0.9 % (0.0-0.5); Lymphocytes Absolute Auto 0.8 10^3/uL (1.2-3.8); Mean Corpuscular HGB Conc 32.6 g/dL (29.9-35.2); Mean Corpuscular Hemoglobin 29.6 pg (25.9-34.0); Mean Corpuscular Volume 90.6 fL (80.0-94.0); Mean Platelet Volume 8.7 fL (9.5-13.5); Monocytes Absolute Auto 0.3 10^3/uL (0.3-0.8); Monocytes Percent Auto 5.1 % (1.7-12.0); Neutrophils Absolute Auto 4.4 10^3/uL (1.4-6.5); Neutrophils Percent Auto 79.6 % (43.0-75.0); Platelet Count 173 10^3/uL (150-450); Red Blood Count 3.72 10^6/uL (4.70-6.10); Red Cell Distribution Width 13.7 % (11.0-15.0); White Blood Count 5.5 10^3/uL (4.0-11.0)
[2025-01-15 06:35] LABS: Anion Gap 8.3; BUN Creatinine Ratio 15.7; Carbon Dioxide 27.3 mmol/L (21.0-32.0); Chloride 104 mmol/L (98-107); Estimated GFR (African America >60 (>=60 mL/min/1.73m^2); Estimated GFR (Non-African Ame >60 (>=60 mL/min/1.73m^2); Glucose 142 mg/dL (74-106); Magnesium 1.9 mg/dL (1.8-2.4); Potassium 3.6 mmol/L (3.5-5.1); Sodium 136 mmol/L (136-145)
[2025-01-15] MEDS: ROFLUMILAST 500 MCG TABLET PO (09:24)
[2025-01-15] MEDS: SODIUM CHLORIDE 0.65% OCEAN NASAL SPRAY 2 SPRAY NS (09:24)
[2025-01-15] MEDS: ENOXAPARIN SODIUM 40 MG/0.4 ML SYRINGE SUBQ (09:24)
[2025-01-15] MEDS: ASPIRIN 81 MG TABLET.DR PO (09:25)
[2025-01-15] MEDS: OMEPRAZOLE 40 MG CAPSULE.DR PO (09:25)
[2025-01-15] MEDS: PREDNISONE 20 MG TABLET 40 MG PO (09:25)
[2025-01-15] MEDS: DOCUSATE SODIUM 100 MG CAPSULE 200 MG PO (09:25)
[2025-01-15] MEDS: BENZONATATE 100 MG CAPSULE 200 MG PO (09:25)
[2025-01-15] MEDS: DILTIAZEM HCL 180 MG CAP.ER.24H PO (09:25)
[2025-01-15] MEDS: CYCLOSPORINE 0.05% 1 EACH OP ×2 (09:27→22:33)
--- NOTE | 2025-01-15 09:41 | SWNOTE1 ---
SW checked for PT eval, it was deferred last evening. SW called therapy room and spoke to OT, unsure of where PT was. SW to check med/surge floor.
[2025-01-15 10:13] LABS: ABG PCO2 46.4 mmHg (35.0-45.0); Base Excess ABG 2.1 mmol/L (-2.0-2.0); HCO3 ABG 27.3 mmol/L (22.0-26.0); pH ABG 7.378 (7.350-7.450)
[2025-01-15 10:14] LABS: Allen Test POSITIVE (POSITIVE); Liters per Minute 4; O2 Mode NC; Oxygen Saturation ABG 91.1 %; Puncture Site RR
[2025-01-15 10:24] LABS: PO2 ABG 59.5 mmHg (80.0-100.0)
[2025-01-15] MEDS: BUDESONIDE 0.5 MG/2 ML AMPULE NEB IH ×2 (10:33→20:24)
[2025-01-15] MEDS: IPRATROPIUM/ALBUTEROL SULFATE 3 ML AMPUL.NEB IH ×3 (10:33→20:24)
[2025-01-15] MEDS: HYDROCODONE/ACET 5-325 MG TABLET 2 TAB PO (10:36)
[2025-01-15] MEDS: GUAIFENESIN 600 MG TAB.ER.12H PO ×2 (10:37→22:32)
[2025-01-15] MEDS: LORAZEPAM 2 MG/ML VIAL 1 MG IV (10:45)
[2025-01-15] MEDS: DOXYCYCLINE HYCLATE 100 MG in 0.9 % SODIUM CHLORIDE 100 ML IV ×2 (10:45→22:32)
--- NOTE | 2025-01-15 10:54 | CM.NOTE ---
Rounds made with Dr. Webb, pt continues to c/o SOB at rest. Dr. Webb will increase steroid, continue breathing treatments. PT will evaluate pt today for discharge planning. No discharge.
--- NOTE | 2025-01-15 11:15 | SWNOTE1 ---
PT lupe completed. SW faxed to Ro[facility] at [facility] for precert to be started.
--- NOTE | 2025-01-15 11:39 | P.IMPN_ITS ---
Progress Note: A&P Assessment and Plan (1) Acute and chronic respiratory failure with hypoxia: Assessment and Plan: Patient uses 2 to 3 L of oxygen via nasal cannula at home. Currently on 5 L of oxygen and is still hypoxic with increased work of breathing, and appears short of breath at rest. ABG also consistent with hypoxemia. Patient started on DuoNebs, IV Solu-Medrol, added guaifenesin. Will put on high flow oxygen. If no improvement, may need BiPAP therapy. Added IV doxycycline for suspected superimposed bacterial infection. Monitor closely for respiratory decline and low threshold for transfer to ICU if no improvement. (2) Influenza A: Assessment and Plan: Currently on Tamiflu. Continue with same. (3) COPD (chronic obstructive pulmonary disease): Assessment and Plan: COPD exacerbation likely secondary to influenza A infection along with suspected superimposed bacterial pneumonia. Patient started on IV Solu-Medrol along with DuoNebs. Qualifiers: COPD type: COPD with acute exacerbation Qualified Code(s): J44.1 - Chronic obstructive pulmonary disease with (acute) exacerbation (4) HTN (hypertension): Assessment and Plan: Blood pressure is poorly controlled likely due to acute illness and IV steroids. On IV hydralazine as needed. Added lisinopril 20 mg once daily Qualifiers: Hypertension type: primary hypertension Qualified Code(s): I10 - Essential (primary) hypertension (5) Closed fracture of proximal end of femur: Assessment and Plan: Conservative treatment. Nonweightbearing and follow-up with orthopedic as outpatient in 2 weeks. (6) Paroxysmal atrial fibrillation: Assessment and Plan: Patient in and out of A-fib but rate controlled overall. Not on anticoagulation. Continue with Cardizem. (7) Fall from standing: Assessment and Plan: PT/OT evaluation. Will need rehab once medically stable for discharge Qualifiers: Encounter type: subsequent encounter Qualified Code(s): W19.XXXD - Unspecified fall, subsequent encounter Plan Case discussed with case management, patient's nurse. I explained current medical illness to patient and answered his questions and addressed his concerns. Patient will need continued inpatient treatment for acute on chronic respiratory failure secondary to COPD exacerbation. Continue with IV Solu- Medrol, DuoNebs and doxycycline. Monitor closely. Patient placed on high flow oxygen for hypoxia on 5 to 6 L of oxygen via nasal cannula. I am hoping that will also help a little with work of breathing. If no improvement and respiratory decline-will transition to BiPAP with low threshold for transfer to ICU. Internal Medicine - PN: Subj Subjective Interval history: Seen and examined. Patient is short of breath, using accessory muscles of respiration. On 5 L of oxygen via nasal cannula. Has productive cough with a sputum. Feels and appears uncomfortable and short of breath at rest. Exam Constitutional Vital Signs, click to edit/add: Last Vital Signs Temp 97.7 F 01/15/25 08:59 Pulse 96 H 01/15/25 09:48 Resp 24 H 01/15/25 08:59 BP 168/84 H 01/15/25 08:59 Pulse Ox 94 L 01/15/25 08:59 O2 Del Method Nasal Cannula 01/15/25 08:59 O2 Flow Rate 4 01/15/25 08:59 Common normals: oriented x3 General appearance: in distress respiratory Other: Appears poorly nourished. Laying in bed Respiratory Effort & inspection: tachypneic, respiratory distress, actively coughing and uses accessory muscles Auscultation: rhonchi, wheezes and diminished lung sounds Other: Dyspneic at rest and conversational dyspnea noted Cardio Common normals: regular rate, regular rhythm, S1 normal heart sound and S2 normal heart sound Rate: regular rate Rhythm: abnormal rhythm GI Common normals: Normal to inspection, nondistended, normoactive bowel sounds present, soft to palpation, non-tender and no hepatosplenomegaly Extremity Common normals: normal to inspection and full ROM Neuro Common normals: oriented x3, moves all extremities and no focal motor deficits Psych Common normals: mental status grossly normal and thought process normal Internal Medicine - PN: Obj Da Labs Labs: Laboratory Results - last 24 hr 01/15/25 01/15/25 06:00 10:05 WBC 5.5 RBC 3.72 L Hgb 11.0 L Hct 33.7 L MCV 90.6 MCH 29.6 MCHC 32.6 RDW 13.7 Plt Count 173 MPV 8.7 L Neut % (Auto) 79.6 H Lymph % (Auto) 14.0 L [place] % (Auto) 5.1 Eos % (Auto) 0.2 L Baso % (Auto) 0.2 Neut # (Auto) 4.4 Lymph # (Auto) 0.8 L [place] # (Auto) 0.3 Eos # (Auto) 0.0 Baso # (Auto) 0.0 Abs Immat Gran (auto) 0.05 H Imm/Tot Granulo (auto) 0.9 H Puncture Site Rr ABG pH 7.378 ABG pCO2 46.4 H ABG pO2 59.5 L* ABG HCO3 27.3 H ABG O2 Saturation 91.1 ABG Base Excess 2.1 H Memo Test Positive O2 Liters/Min 4 Sodium 136 Potassium 3.6 Chloride 104 Carbon Dioxide 27.3 Anion Gap 8.3 BUN 13.0 Creatinine 0.83 Est GFR ( Amer) >60 Est GFR (Non-Af Amer) >60 BUN/Creatinine Ratio 15.7 Glucose 142 H Calcium 8.0 L Magnesium 1.9
--- NOTE | 2025-01-15 12:54 | RESP.RT ---
given per nursing
--- NOTE | 2025-01-15 13:35 | SWNOTE1 ---
SW faxed updated OT note, physician note, labs, vitals, nursing notes, and med list to the [facility] for precert. SW also notified [facility] of pt being on high flow oxygen.
[2025-01-15] MEDS: LISINOPRIL 20 MG TABLET PO (15:13)
[2025-01-15] MEDS: LEVOFLOXACIN IN DEXTROSE 5 % 750 MG/150 ML PREMIX 100 MG IV (15:14)
[2025-01-15] MEDS: METHYLPREDNISOLONE SOD SUCC PF 40 MG/ML VIAL IVP ×2 (15:14→22:32)
[2025-01-16] VITALS (26 sets, daily range): BP systolic 138–163; BP diastolic 75–91; PULSE 82–120; TEMP 36.6–36.8; O2SAT 81–99
[2025-01-16] MEDS: IPRATROPIUM/ALBUTEROL SULFATE 3 ML AMPUL.NEB IH ×4 (04:23→20:02)
[2025-01-16] MEDS: TIZANIDINE HCL 4 MG TABLET PO (05:55)
[2025-01-16] MEDS: METHYLPREDNISOLONE SOD SUCC PF 40 MG/ML VIAL IVP ×3 (05:55→21:42)
[2025-01-16 06:13] LABS: Hematocrit 37.4 % (42.0-54.0); Hemoglobin 12.2 g/dL (14.0-18.0); Immature Granulocytes Abs Auto 0.02 10^3/uL (0.00-0.03); Immature Granulocytes Pct Auto 0.6 % (0.0-0.5); Lymphocytes Absolute Auto 0.3 10^3/uL (1.2-3.8); Lymphocytes Percent Auto 9.5 % (20.5-60.0); Mean Corpuscular HGB Conc 32.6 g/dL (29.9-35.2); Mean Corpuscular Hemoglobin 29.3 pg (25.9-34.0); Mean Corpuscular Volume 89.7 fL (80.0-94.0); Mean Platelet Volume 8.7 fL (9.5-13.5); Monocytes Absolute Auto 0.1 10^3/uL (0.3-0.8); Monocytes Percent Auto 2.9 % (1.7-12.0); Platelet Count 204 10^3/uL (150-450); Red Blood Count 4.17 10^6/uL (4.70-6.10); Red Cell Distribution Width 13.6 % (11.0-15.0); White Blood Count 3.5 10^3/uL (4.0-11.0)
[2025-01-16 06:31] LABS: Anion Gap 14.8; BUN Creatinine Ratio 19.2; Calcium 8.8 mg/dL (8.5-10.1); Carbon Dioxide 27.4 mmol/L (21.0-32.0); Chloride 100 mmol/L (98-107); Estimated GFR (African America >60 (>=60 mL/min/1.73m^2); Estimated GFR (Non-African Ame >60 (>=60 mL/min/1.73m^2); Glucose 121 mg/dL (74-106); Magnesium 1.8 mg/dL (1.8-2.4); Potassium 4.2 mmol/L (3.5-5.1); Sodium 138 mmol/L (136-145)
[2025-01-16] MEDS: LISINOPRIL 20 MG TABLET PO (08:36)
[2025-01-16] MEDS: DILTIAZEM HCL 180 MG CAP.ER.24H PO (08:36)
[2025-01-16] MEDS: OMEPRAZOLE 40 MG CAPSULE.DR PO (08:36)
[2025-01-16] MEDS: GUAIFENESIN 600 MG TAB.ER.12H PO ×2 (08:36→21:42)
[2025-01-16] MEDS: ROFLUMILAST 500 MCG TABLET PO (08:36)
[2025-01-16] MEDS: ASPIRIN 81 MG TABLET.DR PO (08:36)
[2025-01-16] MEDS: ENOXAPARIN SODIUM 40 MG/0.4 ML SYRINGE SUBQ (08:36)
[2025-01-16] MEDS: CYCLOSPORINE 0.05% 1 EACH OP ×2 (08:37→21:42)
[2025-01-16] MEDS: DOXYCYCLINE HYCLATE 100 MG in 0.9 % SODIUM CHLORIDE 100 ML IV ×2 (09:11→21:43)
--- NOTE | 2025-01-16 10:18 | P.IMPN_ITS ---
Progress Note: A&P Assessment and Plan (1) Acute and chronic respiratory failure with hypoxia: Assessment and Plan: Patient weaned off to 2 L oxygen via nasal cannula. Continue with treatment for influenza A, reports bacterial pneumonia along with IV steroids/DuoNebs for COPD exacerbation. Monitor. (2) Right upper lobe pneumonia: Assessment and Plan: Right upper lobe pneumonia noted on chest x-ray. Patient on IV doxycycline and Levaquin. At high risk of resistant organism due to chronic prednisone use and lung disease Qualifiers: Pneumonia type: due to unspecified organism Qualified Code(s): J18.9 - Pneumonia, unspecified organism (3) Influenza A: Assessment and Plan: Currently on Tamiflu. Continue with same. (4) COPD (chronic obstructive pulmonary disease): Assessment and Plan: COPD exacerbation likely secondary to influenza A infection along with suspected superimposed bacterial pneumonia. Patient improving. Continue with Solu-Medrol and DuoNebs. Qualifiers: COPD type: COPD with acute exacerbation Qualified Code(s): J44.1 - Chr onic obstructive pulmonary disease with (acute) exacerbation (5) HTN (hypertension): Assessment and Plan: Blood pressure is still above goal but overall improved after lisinopril was added. IV hydralazine as needed. Qualifiers: Hypertension type: primary hypertension Qualified Code(s): I10 - Essential (primary) hypertension (6) Closed fracture of proximal end of femur: Assessment and Plan: Conservative treatment. Nonweightbearing and follow-up with orthopedic as outpatient in 2 weeks. (7) Paroxysmal atrial fibrillation: Assessment and Plan: Patient in and out of A-fib but rate controlled overall. Not on anticoagulation. Continue with Cardizem. (8) Fall from standing: Assessment and Plan: PT/OT evaluation. Will need rehab once medically stable for discharge Qualifiers: Encounter type: subsequent encounter Qualified Code(s): W19.XXXD - Unspecified fall, subsequent encounter Plan Case discussed with case management, patient's nurse. Patient will need continued inpatient treatment for acute on chronic respiratory failure secondary to COPD exacerbation, RUL PNA. Continue with IV Solu-Medrol, DuoNebs and IV abx. Internal Medicine - PN: Subj Subjective Interval history: Seen and examined. Patient doing considerably better today and currently on 2 L of oxygen. He is still dyspneic during conversation. No overnight events. Patient reports poor oral intake and anorexia. From breathing point of view, he still does not feel well Exam Constitutional Vital Signs, click to edit/add: Last Vital Signs Temp 98.2 F 01/16/25 07:59 Pulse 95 H 01/16/25 10:00 Resp 20 01/16/25 07:59 BP 143/80 H 01/16/25 07:59 Pulse Ox 94 L 01/16/25 08:13 O2 Del Method Nasal Cannula 01/16/25 08:13 O2 Flow Rate 2 01/16/25 08:13 FiO2 40 01/16/25 04:23 Common normals: oriented x3 Other: Appears poorly nourished. Laying in bed Respiratory Effort & inspection: tachypneic Auscultation: rhonchi and diminished lung sounds Other: Dyspneic at rest and conversational dyspnea noted Cardio Common normals: regular rate, regular rhythm, S1 normal heart sound and S2 normal heart sound Rate: regular rate Rhythm: abnormal rhythm Extremity Common normals: normal to inspection and full ROM Neuro Common normals: oriented x3, moves all extremities and no focal motor deficits Psych Common normals: mental status grossly normal and thought process normal Internal Medicine - PN: Obj Da Labs Labs: Laboratory Results - last 24 hr 01/15/25 01/16/25 10:05 05:42 WBC 3.5 L RBC 4.17 L Hgb 12.2 L Hct 37.4 L MCV 89.7 MCH 29.3 MCHC 32.6 RDW 13.6 Plt Count 204 MPV 8.7 L Neut % (Auto) 87.0 H Lymph % (Auto) 9.5 L [place] % (Auto) 2.9 Eos % (Auto) 0.0 L Baso % (Auto) 0.0 L Neut # (Auto) 3.0 Lymph # (Auto) 0.3 L [place] # (Auto) 0.1 L Eos # (Auto) 0.0 Baso # (Auto) 0.0 Abs Immat Gran (auto) 0.02 Imm/Tot Granulo (auto) 0.6 H Puncture Site Rr ABG pH 7.378 ABG pCO2 46.4 H ABG pO2 59.5 L* ABG HCO3 27.3 H ABG O2 Saturation 91.1 ABG Base Excess 2.1 H Memo Test Positive O2 Liters/Min 4 Sodium 138 Potassium 4.2 Chloride 100 Carbon Dioxide 27.4 Anion Gap 14.8 BUN 15.0 Creatinine 0.78 Est GFR ( Amer) >60 Est GFR (Non-Af Amer) >60 BUN/Creatinine Ratio 19.2 Glucose 121 H Calcium 8.8 Magnesium 1.8
--- NOTE | 2025-01-16 10:54 | CM.NOTE ---
Rounds made with Dr. Webb. Dr. Webb discussed diagnostic test and treatment plan keiko Cunha. Plan at discharge is for [facility]. Currently awaiting precert for SNF. No discharge planned for today.
--- NOTE | 2025-01-16 11:05 | PT.DAILY ---
Physical Therapy Daily Note PT Daily Note/Assess Start: 01/16/25 10:59 Freq: Status: Active Protocol: Document 01/16/25 10:59 RADHA (Rec: 01/16/25 11:05 [id number]) Physical Therapy Daily Note/Assessment Time In/Time Out Time In 10:10 Time Out 10:40 Pain In Pain N/A Pain Out Pain N/A Subjective Subjective Pt supine upon arrival. Needs motivation to participate with PT this morning. Eventually agreeable to get attempt getting into BS chair. Therapeutic Exercise Time Therapeutic Exercise 4 Minutes (minutes) Therapeutic Exercise 0 Units Therapeutic Exercise Treatment Therapeutic Exercise Seated AP, LAQ (difficult on R), marches (painful on R) Treatment , add squeezes 10-15x ea. Therapeutic Activity Time Therapeutic Activity 10 Minutes (minutes) Therapeutic Activity 1 Units Therapeutic Activity Treatment Bed Mobility Ability Moderate Assist Therapeutic Activity Supine>sit ModA. Dizziness when sits EOB. IV site is Comments bleeding. Nursing aware and assists with cleaning it up . Pts sits EOB while gown is changed - requires UE support to maintain upright posture. Pt is SOB. refuses to get into BS chair but agreeable to remain sitting at EOB with alarm set. Nursing notified pt remains sitting EOB. Call light within reach. Total Physical Therapy Time Total Therapy 14 Minutes Total Physical 1 Therapy Units Summary Daily Note Summary Semi-complaint with session. Cont to require assistance for bed mobility. UE support needed to maintain static seated balance.
[2025-01-16] MEDS: BUDESONIDE 0.5 MG/2 ML AMPULE NEB IH ×2 (11:20→20:02)
--- NOTE | 2025-01-16 12:23 | SWNOTE1 ---
SW faxed updated PT/OT, physician notes, vitals, labs, and nursing notes to [facility] precert.
[2025-01-16] MEDS: ALPRAZOLAM 0.5 MG TABLET PO ×2 (12:25→21:42)
[2025-01-16] MEDS: LEVOFLOXACIN IN DEXTROSE 5 % 750 MG/150 ML PREMIX 100 MG IV (12:26)
--- NOTE | 2025-01-16 14:41 | SWNOTE1 ---
ROMA received message from [facility] at [facility] and pt is approved to go. ROMA reached out to Dr. Webb to see if pt is medically stable for discharge, waiting to hear back.
--- NOTE | 2025-01-16 14:52 | SWNOTE1 ---
ROMA heard back from Dr. Webb and pt is not stable for discharge today. ROMA let Raph[facility] know. ROMA did ask [facility] how long precert is good through, waiting to hear back.
--- NOTE | 2025-01-16 14:55 | SWNOTE1 ---
[facility] at [facility] let SW know that the precert is good through 01/20.
[2025-01-17] VITALS (22 sets, daily range): BP systolic 104–160; BP diastolic 70–81; PULSE 84–115; TEMP 36.4–36.8; O2SAT 90–98
[2025-01-17] MEDS: IPRATROPIUM/ALBUTEROL SULFATE 3 ML AMPUL.NEB IH ×4 (04:04→20:08)
[2025-01-17] MEDS: METHYLPREDNISOLONE SOD SUCC PF 40 MG/ML VIAL IVP ×2 (05:34→21:43)
[2025-01-17] MEDS: ASPIRIN 81 MG TABLET.DR PO (08:30)
[2025-01-17] MEDS: DILTIAZEM HCL 180 MG CAP.ER.24H PO (08:31)
[2025-01-17] MEDS: GUAIFENESIN 600 MG TAB.ER.12H PO ×2 (08:32→21:42)
[2025-01-17] MEDS: LISINOPRIL 20 MG TABLET PO (08:32)
[2025-01-17] MEDS: ENOXAPARIN SODIUM 40 MG/0.4 ML SYRINGE SUBQ (08:32)
[2025-01-17] MEDS: OMEPRAZOLE 40 MG CAPSULE.DR PO (08:36)
[2025-01-17] MEDS: ROFLUMILAST 500 MCG TABLET PO (08:36)
[2025-01-17] MEDS: CYCLOSPORINE 0.05% 1 EACH OP ×2 (08:44→21:43)
[2025-01-17] MEDS: ALPRAZOLAM 0.5 MG TABLET PO ×2 (08:50→21:42)
[2025-01-17] MEDS: DOXYCYCLINE HYCLATE 100 MG in 0.9 % SODIUM CHLORIDE 100 ML IV ×2 (09:45→21:42)
--- NOTE | 2025-01-17 09:57 | SWNOTE1 ---
No discharge today, SW let [facility] know maybe tomorrow. SW to send updates.
--- NOTE | 2025-01-17 10:00 | CM.NOTE ---
Rounds made with Dr. Webb, pt remains on 3L NC. RN states pt does drop O2 sat with ambulation but able to recover quickly. No discharge today. Pt will discharge to [facility] for skilled rehab when medically stable.
--- NOTE | 2025-01-17 10:47 | PM.IMPN1 ---
Progress Note: A&P Assessment and Plan (1) Acute and chronic respiratory failure with hypoxia: Assessment and Plan: Currently on 3 L of oxygen via nasal cannula. Clinically improving. Wean off oxygen as tolerated. (2) Right upper lobe pneumonia: Assessment and Plan: Patient on IV doxycycline and Levaquin. At high risk of resistant organism due to chronic prednisone use and lung disease Likely superimposed bacterial pneumonia on influenza A pneumonia Qualifiers: Pneumonia type: due to unspecified organism Qualified Code(s): J18.9 - Pneumonia, unspecified organism (3) Influenza A: Assessment and Plan: Currently on Tamiflu. Continue with same. (4) COPD (chronic obstructive pulmonary disease): Assessment and Plan: COPD exacerbation likely secondary to influenza A infection along with superimposed bacterial pneumonia. Patient clinically improving. Decrease Solu-Medrol to every 12 dosing. Continue with DuoNebs. Qualifiers: COPD type: COPD with acute exacerbation Qualified Code(s): J44.1 - Chronic obstructive pulmonary disease with (acute) exacerbation (5) HTN (hypertension): Assessment and Plan: Blood pressure is still above goal but overall improved after lisinopril was added. IV hydralazine as needed. Qualifiers: Hypertension type: primary hypertension Qualified Code(s): I10 - Essential (primary) hypertension (6) Closed fracture of proximal end of femur: Assessment and Plan: Conservative treatment. Nonweightbearing and follow-up with orthopedic as outpatient in 2 weeks. (7) Paroxysmal atrial fibrillation: Assessment and Plan: Patient in and out of A-fib but rate controlled overall. Not on anticoagulation. Continue with Cardizem. (8) Fall from standing: Assessment and Plan: PT/OT evaluation. Will need rehab once medically stable for discharge Qualifiers: Encounter type: subsequent encounter Qualified Code(s): W19.XXXD - Unspecified fall, subsequent encounter Plan Patient continuing to improve however is still considerably short of breath, dyspneic at rest with conversational dyspnea. Needs continued treatment and close monitoring for COPD exacerbation/right upper lobe pneumonia and influenza pneumonia. Patient's clinical course/treatment plan and diagnostic testing discussed with the patient and his nurse. Care plan also discussed with community mental health social worker, case management. Patient will need residential facility once medically stable for discharge. He is approved for SNF placement and can be discharged once medically stable. Internal Medicine - PN: Subj Subjective Interval history: Seen and examined. Continues to feel better and improved but is still short of breath at rest and experiencing conversational dyspnea. No overnight events. Exam Constitutional Vital Signs, click to edit/add: Last Vital Signs Temp 98.1 F 01/17/25 07:00 Pulse 99 H 01/17/25 09:53 Resp 18 01/17/25 07:00 BP 155/80 H 01/17/25 08:32 Pulse Ox 91 L 01/17/25 07:54 O2 Del Method Nasal Cannula 01/17/25 07:00 O2 Flow Rate 3 01/17/25 07:00 FiO2 40 01/16/25 04:23 Common normals: oriented x3 Other: Appears poorly nourished. Laying in bed Respiratory Auscultation: rhonchi and diminished lung sounds Other: Dyspneic at rest and conversational dyspnea noted Cardio Common normals: regular rate, regular rhythm, S1 normal heart sound and S2 normal heart sound Rate: regular rate Rhythm: abnormal rhythm Extremity Common normals: normal to inspection and full ROM Neuro Common normals: oriented x3, moves all extremities and no focal motor deficits Psych Common normals: mental status grossly normal and thought process normal
--- NOTE | 2025-01-17 11:20 | PT.DAILY ---
Physical Therapy Daily Note PT Daily Note/Assess Start: 01/16/25 10:59 Freq: Status: Active Protocol: Document 01/17/25 10:55 [email or web address] (Rec: 01/17/25 11:20 [id number] [id number]) Physical Therapy Daily Note/Assessment Time In/Time Out Time In 10:55 Time Out 11:12 Subjective Subjective Pain 5/10. Doing better. Breathing seems to be better now too. Therapeutic Exercise Time Therapeutic Exercise 8 Minutes (minutes) Therapeutic Exercise 0 Units Therapeutic Exercise Treatment Therapeutic Exercise Supine exercises with isometrics and AAROM R LE, AROM L Treatment LE to improve strength. Therapeutic Activity Time Therapeutic Activity 10 Minutes (minutes) Therapeutic Activity 1 Units Therapeutic Activity Treatment Bed Mobility Ability Minimum Assist Chair Transfer Minimum Assist Ability Therapeutic Activity Patient EOB upon arrival, on 5 L O2. Sit to stand at RW Comments with NWB R LE min assist from EOB. Able to scoot 2 steps to head of bed with NWB on R LE and min assist x1 with use of RW. Sit to supine min assist at LE's. Total Physical Therapy Time Total Therapy 18 Minutes Total Physical 1 Therapy Units Summary Daily Note Summary Improved ability with bed mobility and transfers. Exercises in supine position to work on L LE strength to promote improved ability with R NWB. Patient does report that R lateral ankle is sore, upon skin check noted a small superficial wound, notified nursing. Recommend SNF at [facility] due to patient requiring assistance for safe transfers with NWB status, needs to build strength and improve safety.
[2025-01-17] MEDS: BUDESONIDE 0.5 MG/2 ML AMPULE NEB IH ×2 (11:45→20:08)
[2025-01-17] MEDS: LEVOFLOXACIN IN DEXTROSE 5 % 750 MG/150 ML PREMIX 100 MG IV (12:01)
--- NOTE | 2025-01-17 12:31 | SWNOTE1 ---
ROMA faxed updated PT/OT, physician notes, labs, vitals, and nursing notes to [facility].
[2025-01-18] VITALS (9 sets, daily range): BP systolic 150–160; BP diastolic 77; PULSE 77–107; TEMP 36.6–36.7; O2SAT 90–96
[2025-01-18] MEDS: BENZONATATE 100 MG CAPSULE 200 MG PO (03:55)
[2025-01-18] MEDS: IPRATROPIUM/ALBUTEROL SULFATE 3 ML AMPUL.NEB IH ×2 (04:11→10:51)
--- NOTE | 2025-01-18 07:30 | CM.NOTE ---
2nd Important Message From Medicare discussed with pt, pt denies questions or concerns.
[2025-01-18] MEDS: ASPIRIN 81 MG TABLET.DR PO (08:00)
[2025-01-18] MEDS: ENOXAPARIN SODIUM 40 MG/0.4 ML SYRINGE SUBQ (08:00)
[2025-01-18] MEDS: METHYLPREDNISOLONE SOD SUCC PF 40 MG/ML VIAL IVP (08:00)
[2025-01-18] MEDS: LISINOPRIL 20 MG TABLET PO (08:00)
[2025-01-18] MEDS: GUAIFENESIN 600 MG TAB.ER.12H PO (08:00)
[2025-01-18] MEDS: DILTIAZEM HCL 180 MG CAP.ER.24H PO (08:00)
[2025-01-18] MEDS: OMEPRAZOLE 40 MG CAPSULE.DR PO (08:00)
[2025-01-18] MEDS: ROFLUMILAST 500 MCG TABLET PO (08:01)
[2025-01-18] MEDS: CYCLOSPORINE 0.05% 1 EACH OP (08:01)
--- NOTE | 2025-01-18 09:41 | SWNOTE1 ---
SW received message from case management and pt is stable for discharge today to [facility]. SW to set up transport.
--- NOTE | 2025-01-18 10:36 | P.DS_ITS ---
DS: Providers Provider Date of admission: 01/14/25 11:13 Primary care physician: Kathie Sánchez NP Admitting clinician: Curt De Dios Attending physician on admission: Curt De Dios Consults: 01/14/25 Consult to Orthopedic Surgery Routine Consulting Provider: James Mart Reason For Exam: Reason for consultation: Right hip non-displaced fx. Has provider been notified: Yes Occupational Therapy Eval and Treat Routine Reason for consultation: non-displaced rt hip fx. Has provider been notified: Yes Physical Therapy Eval and Treat Routine Reason for consultation: non-displaced rt hip fx. Has provider been notified: Yes Attending physician on discharge: Shaikh Jon Discharging clinician: Shaikh Jon Anticipated date of discharge: 01/18/25 DS: Diagnosis Discharge Diagnosis (1) Acute and chronic respiratory failure with hypoxia: (2) Right upper lobe pneumonia: Qualifiers: Pneumonia type: due to unspecified organism Qualified Code(s): J18.9 - Pneumonia, unspecified organism (3) Influenza A: (4) COPD (chronic obstructive pulmonary disease): Qualifiers: COPD type: COPD with acute exacerbation Qualified Code(s): J44.1 - Chronic obstructive pulmonary disease with (acute) exacerbation (5) HTN (hypertension): Qualifiers: Hypertension type: primary hypertension Qualified Code(s): I10 - Essential (primary) hypertension (6) Closed fracture of proximal end of femur: (7) Paroxysmal atrial fibrillation: (8) Fall from standing: Qualifiers: Encounter type: subsequent encounter Qualified Code(s): W19.XXXD - Unspecified fall, subsequent encounter DS: Summary Hospital Course Hospital Course: 64-year-old male with past medical history of COPD/emphysema, chronic res piratory failure with hypoxia on 2 to 3 L of oxygen via nasal cannula, was experiencing generalized weakness, worsening shortness of breath and cough for which she had increase his oxygen to 5 L of oxygen by himself for past couple of days. He fell while walking outside and was brought over to ED for further evaluation. Patient was found to have acute on chronic respiratory failure with hypoxia secondary to COPD exacerbation along with nondisplaced subtrochanteric fracture on the right on x-ray. He tested positive for influenza. Patient was admitted for pain control, PT/OT evaluation, orthopedic evaluation along with treatment of acute on chronic respiratory failure with hypoxia. His chest x-ray also revealed right middle lobe pneumonia. Patient was treated with IV Solu- Medrol, DuoNebs for COPD exacerbation. He was treated with IV doxycycline and Levaquin for treatment of community-acquired pneumonia. He was also given Tamiflu for influenza. During hospital admission, he had worsening hypoxia and required high flow oxygen persistent hypoxia on 6 L of oxygen via nasal cannula. He clinically improved from respiratory point of view and was weaned off to 3 L of oxygen via nasal cannula. Patient's hip fracture is nonsurgical and he will need nonweightbearing for 6 weeks on right side and will need follow-up with orthopedic surgery in 2 weeks. Patient is doing much better from respiratory point of view today and is medically stable for discharge. He will need oral Levaquin for 5 days and prednisone taper. He does not need Tamiflu upon discharge. Patient educated on worrisome signs and symptoms and was instructed to return to ED if he develop worsening hypoxia, shortness of breath. Patient will need follow-up with PCP in 1 to 2 weeks. Status at Discharge Overall status at discharge: patient is progressing back to baseline Time Spent with Patient Time attestation: Total time spent providing and/or coordinating discharge services: Time spent: greater than 30 minutes Exam Constitutional Vital Signs, click to edit/add: Last Vital Signs Temp 98.0 F 01/18/25 08:00 Pulse 107 H 01/18/25 09:51 Resp 18 01/18/25 08:00 BP 150/77 H 01/18/25 08:00 Pulse Ox 92 L 01/18/25 08:00 O2 Del Method Nasal Cannula 01/18/25 08:00 O2 Flow Rate 3 01/18/25 08:00 FiO2 40 01/16/25 04:23 Common normals: oriented x3 Other: Appears poorly nourished. Laying in bed Respiratory Common normals: normal respiratory effort and no use of accessory muscles Auscultation: diminished lung sounds Other: No wheezing. Coarse breath sounds Cardio Common normals: regular rate, regular rhythm, S1 normal heart sound and S2 normal heart sound Rate: regular rate Rhythm: abnormal rhythm Extremity Common normals: normal to inspection and full ROM Neuro Common normals: oriented x3, moves all extremities and no focal motor deficits Psych Common normals: mental status grossly normal and thought process normal Discharge Plan Discharge Disposition: [facility] Condition: Good Discharge Medications: New prednisone 20 mg tablet 20 mg PO DAILY Qty: 20 0RF Rx Instructions: 3 tab x 3 days, 2 tab x 3 days, 1 tab x 3 days, 1/2 tab x 4 days levofloxacin 750 mg tablet 750 mg PO DAILY 5 Days Qty: 5 0RF Continued albuterol sulfate 90 mcg/actuation HFA aerosol inhaler 2 inh INHALATION Q4H PRN (Reason: shortness of breath or wheezing) aspirin 81 mg tablet,delayed release (DR/EC) 81 mg PO DAILY budesonide-formoterol 160-4.5 mcg/actuation HFA aerosol inhaler 2 puff INHALATION BID diltiazem HCl 180 mg capsule,ext.rel 24h degradable 180 mg PO DAILY pantoprazole 40 mg tablet,delayed release (DR/EC) 40 mg PO DAILY roflumilast 500 mcg tablet 500 mcg PO DAILY ibuprofen 800 mg tablet 800 mg PO Q8H PRN (Reason: pain) tizanidine 4 mg tablet 4 mg PO BEDTIME PRN (Reason: muscle spasm) cyclosporine 0.05 % dropperette 1 drp OPHTHALMIC (EYE) BID albuterol sulfate 2.5 mg /3 mL (0.083 %) solution for nebulization 2.5 mg inhalation Q6H PRN (Reason: shortness of breath or wheezing) Qty: 90 0RF Discontinued prednisone 10 mg tablet 10 mg PO DAILY Print Language: Luxembourgish [employer] Instructions: Discharge to [facility] skilled Forms: Portal Instructions Follow Up Appointments: Call Dr. Mart (orthopedic) at [phone] to schedule a follow up appt. for 2 weeks following discharge. [facility]
--- NOTE | 2025-01-18 10:40 | SWNOTE1 ---
SW called and set up [facility] for 2:30. SW notified [facility] and nurse of time. SW completed HENS yesterday.
[2025-01-18] MEDS: BUDESONIDE 0.5 MG/2 ML AMPULE NEB IH (10:51)
[2025-01-18] MEDS: DOXYCYCLINE HYCLATE 100 MG in 0.9 % SODIUM CHLORIDE 100 ML IV (10:53)
--- NOTE | 2025-01-18 10:56 | CM.NOTE ---
Rounds made with Dr. Webb, pt will discharge to [facility] for skilled therapy today.
--- NOTE | 2025-01-18 11:19 | SWNOTE1 ---
ROMA faxed over dc med rec, dc summary, and vitals to [facility].
--- NOTE | 2025-01-18 11:23 | PT.DAILY ---
Physical Therapy Daily Note PT Daily Note/Assess Start: 01/16/25 10:59 Freq: Status: Active Protocol: Document 01/18/25 11:10 GISEL (Rec: 01/18/25 11:23 GISEL [id number]) Physical Therapy Daily Note/Assessment Time In/Time Out Time In 11:10 Time Out 11:20 Subjective Subjective Patient reports I am just miserable. Is going to [facility] within the next couple of hours per report. Does agree to bed level exercises, I just laid back down from eating a late breakfast. Therapeutic Exercise Time Therapeutic Exercise 8 Minutes (minutes) Therapeutic Exercise 1 Units Therapeutic Exercise Treatment Therapeutic Exercise Supine exercises B LE with AP, QS and GS. B heel-slides Treatment . L hip abduction. AAROM SLR on R LE. 10 reps each. Total Physical Therapy Time Total Therapy 8 Minutes Total Physical 1 Therapy Units Summary Daily Note Summary Patient demonstrates improved ability with R LE mobility in bed today. Patient denies questions about WB status, self reports getting to commode with assistance while maintaining R NWB. Patient is being DC to SNF today for rehab.
== END 2025-01-18 15:11 | DRG 193 ==
LOC: ER 22:56 → MS 01-14 11:15
PROVIDERS: Physician Assistant; Registered Nurse; Admitting Provider Family Medicine; Emergency Provider Emergency Medicine; PCP Nurse Practitioner; Visit Provider Internal Medicine
DX: J10.08 Influenza due to other identified influenza virus with other specified pneumonia (principal); J96.21 Acute and chronic respiratory failure with hypoxia; S72.001A Fracture of unspecified part of neck of right femur, initial encounter for closed fracture; M97.01XA Periprosthetic fracture around internal prosthetic right hip joint, initial encounter; J15.9 Unspecified bacterial pneumonia; J43.9 Emphysema, unspecified; W10.8XXA Fall (on) (from) other stairs and steps, initial encounter; Z99.81 Dependence on supplemental oxygen; Z79.82 Long term (current) use of aspirin; Z96.643 Presence of artificial hip joint, bilateral; Z87.01 Personal history of pneumonia (recurrent); I48.0 Paroxysmal atrial fibrillation; I10 Essential (primary) hypertension
CPT/HCPCS: 36415; 36600; 71045; 73502; 80048; 80053; 81001; 82805; 83735; 85025; 87070; 87804; 87811; 94640; 94667; 94668; 94761; 94799; 96374; 96375; 96376; 97110; 97163; 97165; 97530; 97535; 99285; G0378; J1171; J1650; J2060; J2270; J2405; J2919; J7512

== ENCOUNTER 2025-02-11 10:09 | Outpatient (OUT) | payer MEDICARE, MEDICAID, SELFPAY ==
--- NOTE | 2025-02-11 | XR_ITS ---
The [address] [address] Patient Name: MATEO STEARNS MRN: [id number] date: 1960 Sex: M Assigned Patient Location: Current Patient Location: Accession/Order Number: [id number] Exam Date: 02/11/2025 12:31 Report Date: 02/11/2025 12:34 At the request of: LEONOR LERNER MD Procedure: XR hip RT 2V w/ pelvis Right hip 2 views of one view pelvis. Reason for exam: Questionable fracture through the subtrochanteric region. COMPARISON: Right hip series 01/13/2025. FINDINGS: The lucency involving the subtrochanteric region of the right hip the left conspicuous but still appears to be present likely related to technique. Right hip prosthesis is grossly unchanged. XR/XR hip RT 2V w/ pelvis IMPRESSION: No significant change in right hip findings compared to the prior study. The suspected fracture line is less conspicuous but still appears to be present likely due to imaging technique. Impression dictated by: Terri Judd Jr.OHarley02/11/2025 12:34 PM Dictation Location: [place] [address] Electronically authenticated by: [id number] Y Date: 02/11/2025 12:34
== END 2025-02-11 10:10 | disposition home or self-care (01) ==
LOC: EC 10:09
PROVIDERS: PCP Nurse Practitioner; Visit Provider Orthopaedic Surgery
DX: M97.01XD 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, subsequent encounter (principal)
CPT/HCPCS: 73502

== ENCOUNTER 2025-02-23 11:10 | Inpatient (IN) | payer MEDICARE, MEDICAID, SELFPAY ==
[2025-02-23] VITALS (11 sets, daily range): BP systolic 118–150; BP diastolic 71–86; PULSE 83–108; TEMP 36.5–36.9; O2SAT 92–97; BMI 19.6; BMI 20.5
--- OUTSIDE RECORDS SUMMARY | 2025-02-23 11:17 | XMS_ITS | CCD ---
Author Organization [facility] Care Team Providers Care Senior Java Architect Name Role Phone Bryan Quick Attending Provider AICHMACIEL KATHIE J Primary Care Physician [phone] AICHHOLZ, NUCLEAR REACTOR OPERATOR KATHIE Primary Care Unavailable DR LEONOR MA Consulting Unavailable SAMSA ., ROBERTO Admitting Unavailable SAMSA ., ROBERTO Attending Unavailable SAMSA ., ROBERTO Consulting Unavailable AICHHOLZ, NUCLEAR REACTOR OPERATOR KATIHE Admitting Unavailable AICHHOLZ, NUCLEAR REACTOR OPERATOR KATHIE Attending Unavailable AICHHOLZ, NUCLEAR REACTOR OPERATOR KATHIE Consulting Unavailable AICHHOLZ, NUCLEAR REACTOR OPERATOR KATHIE Primary Care Unavailable AICHHOLZ, NUCLEAR REACTOR OPERATOR KATHIE Admitting Unavailable AICHHOLZ, NUCLEAR REACTOR OPERATOR KATHIE Primary Care Unavailable AICHHOLZ, NUCLEAR REACTOR OPERATOR KATHIE Attending Unavailable AICHHOLZ, NUCLEAR REACTOR OPERATOR KATHIE Consulting Unavailable AICHHOLZ, NUCLEAR REACTOR OPERATOR KATHIE Primary Care Unavailable DR LEONOR MA Consulting Unavailable SAMSA ., ROBERTO Admitting Unavailable SAMSA ., ROBERTO Attending Unavailable SAMSA ., ROBERTO Consulting Unavailable DR LEONOR MA Consulting Unavailable SAMSA ., ROBERTO Admitting Unavailable SAMSA ., ROBERTO Attending Unavailable SAMSA ., ROBERTO Consulting Unavailable DR ELSA NOBLE Admitting Unavailable DR OK CISNEROS V Consulting Unavailable AICHHOLZ, NUCLEAR REACTOR OPERATOR KATHIE Primary Care Unavailable DR ELSA NOBLE Attending Unavailable DR ELSA NOBLE Consulting Unavailable SAMSA ., ROBERTO Admitting Unavailable AICHHOLZ, NUCLEAR REACTOR OPERATOR KATHIE Primary Care Unavailable SAMSA ., ROBERTO Attending Unavailable SAMSA ., ROBERTO Consulting Unavailable SAMSA ., ROBERTO Admitting Unavailable AICHHOLZ, NUCLEAR REACTOR OPERATOR KATHIE Primary Care Unavailable DR LEONOR MA Consulting Unavailable SAMSA ., ROBERTO Attending Unavailable SAMSA ., ROBERTO Consulting Unavailable Aichholz ASSISTANT PROFESSOR OF MARINE BIOLOGY, Kathie Unavailable Lanre CHANDLER, Curt Primary Care Provider VORARufina R Attending Unavailable VORA, Rufina R Attending Unavailable VORA, Rufina R Attending Unavailable VORA, Rufina R Attending Unavailable VORA, Rufina R Admitting Unavailable VORA, Rufina R Referring Unavailable VORA, Rufina R Attending Unavailable Bhat DO, Peter Cruz Primary Care Provider Aichholz NUCLEAR REACTOR OPERATOR, Kathie Rosen Primary Care Provider Bhat DO, Peter Cruz Primary Care Provider Aichholz ASSISTANT PROFESSOR OF MARINE BIOLOGY, Kathie Unavailable Aichholz ASSISTANT PROFESSOR OF MARINE BIOLOGY, Kathie Unavailable Lanre CHANDLER, Curt Primary Care Provider Aichholz ASSISTANT PROFESSOR OF MARINE BIOLOGY, Kathie Unavailable Umu Schultz Unavailable Unavailable ENGELER, [...] ENGELER, G GOPAL Referring Unavailable AICHHOLZ, KATHIE JAEY Primary Care Unavailable ENGELER, G GOPAL Attending [...] Medication Allergies] Propensity to adverse reactions (disorder) [facility] Repository Medications Current Medications Medication Drug Class(es) Dates Sig (Normalized) Sig (Original) acetaminophen 325 mg / HYDROcodone bitartrate 5 mg oral tablet (3 sources) Opioid Agonist Start: 12-05-2024 HYDROcodone-aceta minophen ([place]) 5-325 MG tablet 12/05/2024 Active albuterol 0.83 [...] 08/05/22 Status: Ordered take 1 capsule by [facility] three times daily as needed for cough [...] budesonide-formoterol 160 mcg-4.5 mcg/inh Inh Aer w/adapter (10 sources) Start: 05-17-2022 take 2 puff(s) by [...] by mouth Daily 90 capsule 1 10/16/2024 Active Start: 05-17-2022 Dilt-XR 180 mg /24 hours oral capsule, extended release Refills(s) 0 Start Date: 05/17/22 Status: Ordered take 1 capsule by [facility] every twenty-four hours in the morning dilTIAZem [...] Do not crush, chew, or split.. Active metoclopramide 10 mg oral tablet (1 source) Dopamine-2 Receptor Antagonist Start: 02-23-20 End: 03-24-20 take 1 tablet by mouth in the morning, then take 1 tablet by mouth in the evening, then take 1 tablet by mouth at bedtime metoclopramide (Reglan) 10 MG tablet Indications: Nausea Take 1 tablet (10 mg) by mouth in the morning and 1 tablet (10 mg) in the evening and 1 tablet (10 mg) before bedtime. 90 tablet 02/22/2025 03/24/2025 Active pantoprazole 40 mg delayed release oral tablet (20 sources) Proton Pump Inhibitor Start: 08-05-20 take 1 dose by mouth once daily Start: 05-30-2019 End: 01-14-2025 take 1 tablet by mouth before mealtime pantoprazole (ProtoNix) 40 MG EC tablet Indications: Gastro-esophageal reflux disease without esophagitis Take 1 tablet (40 mg) by mouth in the morning. Take before meals. 90 tablet 1 10/16/2024 Active Uhqhwkjopkr-Bwgirkzz-Qpueypa ac 1-0.5-0.075 % solution (4 sources) Start: 01-02-2025 Vlyctpioqmp-Bxbczsgu-Znzrpgr ac 1-0.5-0.075 % solution Indications: Age-related nuclear [...] 05/16/2013 Active take 1 tablet by dominique th once daily predniSONE (Deltasone) 20 MG tablet Take 20 mg by mouth Daily Active Roflumilast (20 sources) Phosphodiesterase 4 Inhibitor Start: 01-02-2024 Roflumilast 500 mcg oral tablet Refills(s) 0 Start Date: 01/02/24 Status: Ordered Start: 05-17-2022 take 1 tablet by dominique th once daily Daliresp 500 mcg oral tablet 500 mcg = 1 tab(s), Oral, Daily, Refills(s) 0 Start Date: 05/17/22 Status: Ordered take 1 tablet by dominique th once daily Roflumilast (Daliresp) 500 MCG tablet Take 500 mcg by mouth 1 (one) time each day Active sodium chloride 9 mg/ml inhalation solution (16 sources) sodium chloride 0.9 % nebulizer solution [...] daily. Active tiZANidine 4 mg oral tablet (16 sources) Central alpha-2 Adrenergic Agonist Start: 09-13-2024 End: 01-14-2025 tiZANidine (Zanaflex) 4 MG tablet Indications: DDD (degenerative disc disease), cervical Take 1 tablet (4 mg) by mouth as needed at bedtime for muscle spasms May take 1/2-1 pill at bedtime 90 tablet 10/16/2024 Active Ventolin HFA 90 mcg/inh Aerosol-Adpt (10 sources) Start: 05-17-2022 take 1 puff(s) by [...] Problem Date Documented Date Episodic/Chronic Anxiety disorders (15 sources) Anxiety disorder; Translations: [Anxiety disorder, unspecified] Onset: 11-17-2017 02-28-2024 Chronic Aortic; peripheral; and visceral artery aneurysms (20 sources) Abdominal aortic aneurysm without rupture; Translations: [Abdominal aortic aneurysm (AAA) without rupture] Onset: 04-10-2024 04-10-2024 Chronic Cancer of prostate (20 sources) Malignant neoplasm of prostate; Translations: [Malignant tumor of prostate] Onset: 06-06-2023 Chronic Cardiac dysrhythmias (18 sources) Atrial fibrillation; Translations: [Unspecified atrial fibrillation] Onset: 11-12-2023 11-12-2023 Chronic Cataract (5 sources) Bilateral age-related nuclear cataracts; Translations: [Age-related nuclear cataract, bilateral] Onset: 01-02-2025 01-02-2025 Chronic Chronic obstructive pulmonary disease and bronchiectasis (20 sources) Emphysema, unspecified; Translations: [Chronic obstructive lung disease] Onset: 05-16-2013 05-16-2013 Chronic Coagulation and hemorrhagic disorders (16 sources) Thrombophilia; Translations: [Other thrombophilia] Onset: 09-13-2024 09-13-2024 Chronic Disorders of lipid metabolism (15 sources) Mixed hyperlipidemia; Translations: [Mixed hyperlipidemia] Onset: 02-28-2024 02-28-2024 Chronic Esophageal disorders (20 sources) Gastroesophageal reflux disease; Translations: [Gastro-esophageal reflux disease without esophagitis] Onset: 12-06-2023 04-19-2022 Chronic Gout and other crystal arthropathies (20 sources) Gout; Translations: [Gout, unspecified] Onset: 02-28-2024 04-19-2022 Chronic Nausea and vomiting (2 sources) Nausea; Translations: [Nausea] Onset: 02-22-2025 02-22-2025 Episodic Osteoarthritis (20 sources) Arthritis; Translations: [Osteoarthritis of left hip joint] Onset: 11-14-2017 04-19-2022 Chronic Other nervous system disorders (20 sources) Neuropathy; Translations: [Polyneuropathy, unspecified] Onset: 02-28-2024 04-19-2022 Chronic Other nervous system disorders (16 sources) Carpal tunnel syndrome of right wrist; Translations: [Carpal tunnel syndrome, right upper limb] Onset: 10-27-2023 10-27-2023 Chronic Other nervous system disorders (15 sources) Chronic pain; Translations: [Other chronic pain] Onset: 09-13-2024 09-13-2024 Chronic Other screening for suspected conditions (not mental disorders or infectious disease) (2 sources) Encounter for screening for malignant neoplasm of prostate; Translations: [Screening for malignant neoplasm done] Onset: 05-17-2022 Episodic Other skin disorders (4 sources) Sebaceous cyst of skin; Translations: [Sebaceous cyst] Onset: 05-17-2022 Episodic Peripheral and visceral atherosclerosis (16 sources) Atherosclerosis of aorta; Translations: [Atherosclerosis of aorta] Onset: 09-13-2024 09-13-2024 Chronic Pleurisy; pneumothorax; pulmonary collapse (10 sources) Focal atelectasis 04-19-2022 Episodic Respiratory failure; insufficiency; arrest (adult) (20 sources) Chronic hypoxemic respiratory failure; Translations: [Chronic respiratory failure with hypoxia] Onset: 02-28-2024 04-19-2022 Chronic Spondylosis; intervertebral disc disorders; other back problems (17 sources) Degeneration of cervical intervertebral disc; Translations: [Other cervical disc degeneration, unspecified cervical region] Onset: 09-13-2024 09-13-2024 Chronic Unclassified (10 sources) Patient encounter status 05-17-2022 Unclassified (10 sources) Sebaceous cyst of skin 05-17-2022 Unclassified (1 source) COUGH, UNSPECIFIED; Translations: [COUGH, UNSPECIFIED] Onset: 05-06-2022 Unclassified (1 source) CONTACT W/AND (SUSP) EXPOS COVID-19; Translations: [CONTACT W/AND (SUSP) EXPOS COVID-19] Onset: 05-06-2022 Past or Other Problems Problem Classification Problem Date Documented Da te Episodic/Chronic Alcohol-related disorders (20 sources) Alcohol dependence, uncomplicated; Translations: [Alcoholism] Onset: 05-16-2013 Resolved: 12-17-2024 05-16-2013 Chronic Mood disorders (15 sources) Mood disorders Onset: 02-28-2024 02-28-2024 Other aftercare (1 source) Other intermediate (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 therapy; Translations: [OTH ELIGIBILITY SUPERVISOR CURRENT DRUG THERAPY] Onset: 08-13-2022 Episodic Other gastrointestinal disorders (20 sources) Scrotal mass; [...] Onset: 05-03-2022 Episodic Other lower respiratory disease (15 sources) Lung mass; Translations: [Other nonspecific abnormal [...] Spondylosis; intervertebral disc disorders; other back problems (15 sources) Lumbar radiculopathy; Translations: [Radiculopathy, lumbar region] Onset: 02-28-2024 02-28-2024 Episodic Substance-related disorders (20 sources) Marijuana user; Translations: [Cannabis use, unspecified, uncomplicated] Onset: 05-16-2013 05-16-2013 Episodic Unclassified (15 sources) Onset: 02-28-2024 02-28-2024 Results Test Name Value Interpretation Reference Range Facility XR Hip - right [address] [place] [address] XRay Report Signed Patient: MATEO STEARNS MR#: [id number] : 1960 Acct:[id number] Age/Sex: 64 / M ADM Date: 02/11/25 Loc: EC Attending Dr: Leonor Mart M.D. Ordering Physician: Leonor Mart M.D. Date of Service: 02/11/25 Procedure(s): XR hip RT 2V w/ pelvis Accession Number(s): [id number] cc: Kathie Sánchez ASSISTANT PROFESSOR OF MARINE BIOLOGY; Leonor Mart M.D. [place] [id number] Patient Name: MATEO STEARNS MRN: [id number] date: 1960 Sex: M Assigned Patient Location: Current Patient Location: Accession/Order Number: [id number] Exam Date: 02/11/2025 12:31 Report Date: 02/11/2025 12:34 At the request of: LEONOR MART MD Procedure: XR hip RT 2V w/ pelvis Right hip 2 views of one view pelvis. Reason for exam: Questionable fracture through the subtrochanteric region. COMPARISON: Right hip series 01/13/2025. FINDINGS: The lucency involving the subtrochanteric region of the right hip the left conspicuous but still appears to be present likely related to technique. Right hip prosthesis is grossly unchanged. XR/XR hip RT 2V w/ pelvis IMPRESSION: No significant change in right hip findings compared to the prior study. The suspected fracture line is less conspicuous but still appears to be present likely due to imaging technique. Impression dictated by: Bobby Cummings Jr., D.O.02/11/2025 12:34 PM Dictation Location: [place] [address] Electronically authenticated by: [id number] Y Date: 02/11/2025 12:34 Dictated By: Bobby Cummings M.D. Signed By: 02/11/25 1236 DD/ 1234 TD/TT: Stone Rougher: [facility] Radiology, Radiologist, - 02/11/2025 [place] [address] XRay Report Signed Patient: MATEO STEARNS MR#: [id number] : 1960 Acct:[id number] Age/Sex: 64 / M ADM Date: 02/11/25 Loc: Attending Dr: Leonor Mart M.D. Ordering Physician: Leonor Mart M.D. Date of Service: 02/11/25 Procedure(s): XR hip RT 2V w/ pelvis Accession Number(s): [id number] cc: Kathie Sánchez ASSISTANT PROFESSOR OF MARINE BIOLOGY; Leonor Mart M.D. The [address] [address] Patient Name: MATEO STEARNS MRN: [facility]:[id number] date: 1960 Sex: M Assigned Patient Location: Current Patient Location: Accession/Order Number: [id number] Exam Date: 02/11/2025 12:31 Report Date: 02/11/2025 12:34 At the request of: LEONOR MART MD Procedure: XR hip RT 2V w/ pelvis Right hip 2 views of one view pelvis. Reason for exam: Questionable fracture through the subtrochanteric region. COMPARISON: Right hip series 01/13/2025. FINDINGS: The lucency involving the subtrochanteric region of the right hip the left conspicuous but still appears to be present likely related to technique. Right hip prosthesis is grossly unchanged. XR/XR hip RT 2V w/ pelvis IMPRESSION: No significant change in right hip findings compared to the prior study. The suspected fracture line is less conspicuous but still appears to be present likely due to imaging technique. Impression dictated by: Bobby Cummings Jr., D.O.02/11/2025 12:34 PM Dictation Location: [place] [address] Electronically authenticated by: [id number] Y Date: 02/11/2025 12:34 Dictated By: Bobby Cummings M.D. Signed By: 02/11/25 1236 DD/ 1234 TD/TT: Stone Rougher: [facility] Radiology Study observation (narrative) [facility] XR Hip - right 3 ViewsOrdere d By: Radiologist Radiology on 02-11-2025 [facility] Work Phone: [facility] Eye[facility]Orbit - bilateralon 0 01-02-2025 Diagnosis: Cataract both eyes (OU) Testing Indication: Performed for preop measurements in the determination of an intraocular lens (IOL) for both eyes (OU) Test Reliability: Good quality both eyes (OU) Interpretation: Good measurements for intraocular lens (IOL) calculation purposes. Calculation made for both eyes (OU). [facility] Radiology Study observation (narrative) [facility] MHPT PSA, DIAGNOSTICon 12-05 Interpretation and review of laboratory results Abnormal [facility] PROSTATE SPECIFIC ANTIGEN DX 4.2 ng/mL High NINF - 4.00 ng/mL [facility] No Panel Informationon 12-05 [facility] CNOVon 11-02-2024 CNOV Office Visit (RADTSA ) MATEO STEARNS ([id number]) 1960 M Date Time Provider Department 11/02/24 10:30 AM Severo DENT During your visit today, we recorded the following information about you: Temperature Pulse Respiration Blood pressure 98.4 degrees 100/minute 18/minute 118/82 Severo Dent MD 11/09/2024 11:44 AM Signed Radiation Oncology - On Treatment Review (OTR) Note PATIENT NAME: Mateo Stearns PATIENT DIAGNOSIS: Prostate adenocarcinoma, initial PSA 4.46, biopsy Westford score 3 + 3 = 6 (grade [...] Order(s):PROSTATE-SPE CIFIC ANTIGEN DIAGNOSTIC [SQPSA] Order #: [id number] FUTURE Prescriptions as of 11/09/2024 - predniSONE [...] Encounter Status:Closed by Severo DENT on 11/09/24 [facility] 10-29-2024 CNOV Office Visit (RADTSA ) MATEO STEARNS ([id number]) 1960 M Date Time Provider Department 10/29/24 [...] 06/24/2024 Encounter Status:Closed by Severo DENT on 12/2/24 [facility] CNOVon 10-22-2024 CNOV Office Visit (RADTSA ) MATEO STEARNS ([id number]) 1960 M Date Time Provider Department 10/22/24 10:30 AM Severo DENT RADTSA During your visit today, we recorded the following information about you: Temperature Pulse Respiration Blood pressure 97.1 degrees 71/minute 18/minute 127/81 Weight 67.6 kg Severo Dent MD 10/22/2024 10:51 AM Signed Radiation Oncology - On Treatment Review (OTR) Note PATIENT NAME: Mateo Stearns PATIENT DIAGNOSIS: Prostate adenocarcinoma, initial PSA 4.46, biopsy Westford score 3 + 3 = 6 (grade [...] films reviewed and current:Yes Medications started: None ASSESSMENT/PLAN:Jennifere nt doing well. Chart and imaging reviewed. [...] Encounter Status:Closed by Severo DENT on 10/22/24 [facility] CNOVon 10-15-2024 CNOV Office Visit (RADTSA ) JINNYMATEO MARSHALL ([id number]) 1960 M Date Time Provider Department 10/15/24 10:30 AM Severo DENT RADTSA During your visit today, we recorded the following information about you: Temperature Pulse Respiration Blood pressure 97.8 degrees 87/minute 16/minute 121/81 Weight 67.9 kg Severo Dent MD 10/15/2024 3:22 PM Signed Radiation Oncology - On Treatment Review (OTR) Note PATIENT NAME: Mateo Stearns PATIENT DIAGNOSIS: Prostate adenocarcinoma, initial PSA 4.46, biopsy Westford score 3 + 3 = 6 (grade [...] by Severo DENT on 10/15/24 Normal [facility] CBC W Auto Differential pane l (Bld)on 10-11-2024 Basophils (Bld) [#/Vol] 0.04 10*3/uL [facility] Differential cell count method Nom (Bld) Auto [facility] Eosinophils (Bld) [#/Vol] 0.07 10*3/uL [facility] Immature granulocytes (Bld) [#/Vol] 0.16 10*3/uL High [facility] Immature granulocytes/100 WBC (Bld) 1.1 % [facility] Lymphocytes (Bld) [#/Vol] 1.10 10*3/uL [facility] Monocytes (Bld) [#/Vol] 0.45 10*3/uL [facility] Neutrophils (Bld) [#/Vol] 12.30 10*3/uL [facility] Nucleated RBC (Bld) [#/Vol] [facility] Nucleated RBC/100 WBC (Bld) [Ratio] 0.0 % /[address] [facility] Platelet mean volume (Bld) [Entitic vol] 8.6 fL Low 9.0 - 12.[address] [facility] Platelets (Bld) [#/Vol] 317 10*3/uL [facility] WBC (Bld) [#/Vol] 14.12 10*3/uL High [facility] Basophils (Bld) [#/Vol] 0.04 10*3/uL Normal <0.11 [facility] Comment on above: Order Comment: Speci men Type: BLOOD SPECIMENOrdering Facility: [facility] Address: [address] [place] [address] Performed By: #### 5 7021-8 ####[facility]CL[facility] [id number] [place] [address] Basophils/100 WBC (Bld) 0.3 % Normal [facility] Comment on above: Order Comment: Speci men Type: BLOOD SPECIMENOrdering Facility: [facility] Address: [address] [place] [address] Performed By: #### 5 7021-8 ####[facility]CL[facility] [id number] [place] [address] Differential cell count method Nom (Bld) Auto Normal [facility] Comment on above: Order Comment: Speci men Type: BLOOD SPECIMENOrdering Facility: [facility] Address: [address] [place] [address] Performed By: #### 5 7021-8 ####[facility] [id number] [place] [address] Eosinophils (Bld) [#/Vol] 0.07 10*3/uL Normal <0.46 [facility] Comment on above: Order Comment: Speci men Type: BLOOD SPECIMENOrdering Facility: [facility] Address: [address] [place] [address] Performed By: #### 5 7021-8 ####[facility] [id number] [place] [address] Eosinophils/100 WBC (Bld) 0.5 % Normal [facility] Comment on above: Order Comment: Speci men Type: BLOOD SPECIMENOrdering Facility: [facility] Address: [address] [place] [address] Performed By: #### 5 7021-8 ####[facility]CL[facility] [id number] [place] [address] Erythrocyte distribution width (RBC) [Ratio] 13.6 % Normal 11.5-15.0 [facility] Comment on above: Order Comment: Speci men Type: BLOOD SPECIMENOrdering Facility: [facility] Address: [address] [place] [address] Performed By: #### 5 7021-8 ####[facility]CL[facility] [id number] [place] [address] Hematocrit (Bld) [Volume fraction] 43.8 % Normal 39.0-51.0 [facility] Comment on above: Order Comment: Speci men Type: BLOOD SPECIMENOrdering Facility: [facility] Address: [address] [place] [address] Performed By: #### 5 7021-8 ####[facility]CL[facility] [id number] [place] [address] Hemoglobin (Bld) [Mass/Vol] 14.8 g/dL Normal 13.0-17.0 [facility] Comment on above: Order Comment: Speci men Type: BLOOD SPECIMENOrdering Facility: [facility] Address: [address] [place] [address] Performed By: #### 5 7021-8 ####[facility]CL[facility] [id number] [place] [address] Immature granulocytes (Bld) [#/Vol] 0.16 10*3/uL High <0.10 [facility] Comment on above: Order Comment: Speci men Type: BLOOD SPECIMENOrdering Facility: [facility] Address: [address] [place] [address] Performed By: #### 5 7021-8 ####[facility]CL[facility] [id number] [place] [address] Immature granulocytes/100 WBC (Bld) 1.1 % Normal [facility] Comment on above: Order Comment: Speci men Type: BLOOD SPECIMENOrdering Facility: [facility] Address: [address] [place] [address] Performed By: #### 5 7021-8 ####[facility]CL[facility] [id number] [place] [address] Lymphocytes (Bld) [#/Vol] 1.10 10*3/uL Normal 1.00-4.00 [facility] Comment on above: Order Comment: Speci men Type: BLOOD SPECIMENOrdering Facility: [facility] Address: [address] [place] [address] Performed By: #### 5 7021-8 ####[facility]CL[facility] [id number] [place] [address] Lymphocytes/100 WBC (Bld) 7.8 % Normal [facility] Comment on above: Order Comment: Speci men Type: BLOOD SPECIMENOrdering Facility: [facility] Address: [address] [place] [address] Performed By: #### 5 7021-8 ####[facility]CL[facility] [id number] [place] [address] MCH (RBC) [Entitic mass] 30.4 pg Normal 26.0-34.0 [facility] Comment on above: Order Comment: Speci men Type: BLOOD SPECIMENOrdering Facility: [facility] Address: [address] [place] [address] Performed By: #### 5 7021-8 ####[facility]CLIA [id number] [place] [address] MCHC (RBC) [Mass/Vol] 33.8 g/dL Normal 30.5-36.0 [facility] Comment on above: Order Comment: Speci men Type: BLOOD SPECIMENOrdering Facility: [facility] Address: [address] [place] [address] Performed By: #### 5 7021-8 ####[facility]CL[facility] [id number] [place] [address] MCV (RBC) [Entitic vol] 89.9 fL Normal 80.0-100.0 [facility] Comment on above: Order Comment: Speci men Type: BLOOD SPECIMENOrdering Facility: [facility] Address: [address] [place] [address] Performed By: #### 5 7021-8 ####[facility]CL[facility] [id number] [place] [address] Monocytes (Bld) [#/Vol] 0.45 10*3/uL Normal <0.87 [facility] Comment on above: Order Comment: Speci men Type: BLOOD SPECIMENOrdering Facility: [facility] Address: [address] [place] [address] Performed By: #### 5 7021-8 ####[facility]CL[facility] [id number] [place] [address] Monocytes/100 WBC (Bld) 3.2 % Normal [facility] Comment on above: Order Comment: Speci men Type: BLOOD SPECIMENOrdering Facility: [facility] Address: [address] [place] [address] Performed By: #### 5 7021-8 ####[facility] LABCLIA [id number] [place] [address] Neutrophils (Bld) [#/Vol] 12.30 10*3/uL High 1.45-7.50 [facility] Comment on above: Order Comment: Speci men Type: BLOOD SPECIMENOrdering Facility: [facility] Address: [address] [place] [address] Performed By: #### 5 7021-8 ####[facility] LABCLIA [id number] [place] [address] Neutrophils/100 WBC (Bld) 87.1 % Normal [facility] Comment on above: Order Comment: Speci men Type: BLOOD SPECIMENOrdering Facility: [facility] Address: [address] [place] [address] Performed By: #### 5 7021-8 ####[facility] LABCLIA [id number] [place] [address] Nucleated RBC (Bld) [#/Vol] 10*3/uL Normal <0.01 [facility] Comment on above: Order Comment: Speci men Type: BLOOD SPECIMENOrdering Facility: [facility] Address: [address] [place] [address] Performed By: #### 5 7021-8 ####[facility] LABCLIA [id number] [place] [address] Nucleated RBC/100 WBC (Bld) [Ratio] 0.0 /100 WBC Normal [facility] Comment on above: Order Comment: Speci men Type: BLOOD SPECIMENOrdering Facility: [facility] Address: [address] [place] [address] Performed By: #### 5 7021-8 ####[facility] LABCLIA [id number] [place] [address] Platelet mean volume (Bld) [Entitic vol] 8.6 fL Low 9.0-12.7 [facility] Comment on above: Order Comment: Speci men Type: BLOOD SPECIMENOrdering Facility: [facility] Address: [address] [place] [address] Performed By: #### 5 7021-8 ####[facility] LABIA [id number] [place] [address] Platelets (Bld) [#/Vol] 317 10*3/uL Normal 150-400 [facility] Comment on above: Order Comment: Speci men Type: BLOOD SPECIMENOrdering Facility: [facility] Address: [address] [place] [address] Performed By: #### 5 7021-8 ####[facility] LABIA [id number] [place] [address] RBC (Bld) [#/Vol] 4.87 10*6/uL Normal 4.20-6.00 [facility] Comment on above: Order Comment: Speci men Type: BLOOD SPECIMENOrdering Facility: [facility] Address: [address] [place] [address] Performed By: #### 5 7021-8 ####[facility] LABCLIA [id number] [place] [address] WBC (Bld) [#/Vol] 14.12 10*3/uL High 3.70-11.00 [facility] Comment on above: Order Comment: Speci men Type: BLOOD SPECIMENOrdering Facility: [facility] Address: [address] [place] [address] [place] [address] Performed By: #### 5 7021-8 ####[facility] LABCLIA [id number] [place] [address] [facility] CBC W AUTO DIFF BLDon [facility] BASOPHILS # BLD AUTO 0.04 [facility] DIFFERENTIAL METHOD BLD Auto [facility] EOSINOPHIL # BLD AUTO 0.07 [facility] LYMPHOCYTES # BLD AUTO 1.1 [facility] MONOCYTES # BLD AUTO 0.45 [facility] NEUTROPHILS # BLD AUTO 12.3 High [facility] NRBC # BLD AUTO <0.01 [facility] NRBC/100 WBC BLD-RTO 0 /100 WBC [facility] PLATELET # BLD AUTO 317 [facility] PMV BLD AUTO 8.6 fL Low 9.0 - 12.7 fL [facility] WBC # BLD AUTO 14.12 High [facility] IMM GRANULOCYTES # BLD AUTO 0.16 High [facility] IMM GRANULOCYTES/LEUK NFR BLD AUTO 1.1 % [facility] Specimen Type: BLOOD SPECIMEN [facility] Address: [address] [place] [address] Original Ordering Provider: Severo Mohan 10-11-2024 CNOV Office Visit (RADTSA ) MATEO STEARNS ([id number]) 1960 M Date Time Provider Department 10/11/24 10:45 AM LAB/PORT MIRELLAT ANA ALCALA During your visit today, we recorded the following information about you: Dayanna Call LPN 10/11/2024 10:55 AM Signed Mateo Payan Jinny presents in office today for: Lab Draw only . Ordering Provider: Goapl Dent M.D. Test (s) ordered: CBC Method for obtaining blood: Phlebotomy was performed, accessing left antecubital vein. Needle removed intact. Dressing secured. Patient denies discomfort, dizziness, light-headedness or weakness and left the department without assist. Dayanna Call LPN Referring Provider: Severo DENT [[id number]] Allergies As of Date: 10/11/2024 (No Known Allergies) Date Reviewed: 10/01/2024 Reviewed by: Mona Melvin RN - Fully Assessed Visit Diagnosis:Malignant neoplasm of prostate (HCC) [C61] Order(s):COMPLETE BLOOD COUNT AND DIFFERENTIAL [SQCBCDIF] Order #: [id number]. #:[id number] Prescriptions as of 10/11/2024 - predniSONE (DELTASONE) [...] 06/24/2024 Visit Notes: >> Dayanna Call LPN [facility] Oct 11, 2024 10:55 AM Status: [...] by DAYANNA CALL on 10/11/24 Normal [facility] Laboratory - Hematology and Cell countson 10-11-2024 Basophils/100 WBC (Bld) 0.3 % [facility] Eosinophils/100 WBC (Bld) 0.5 % [facility] Erythrocyte distribution width (RBC) [Ratio] 13.6 % 11.5 - 15.0 % [facility] Hematocrit (Bld) [Volume fraction] 43.8 % 39.0 - 51.0 % [facility] Hemoglobin (Bld) [Mass/Vol] 14.8 g/dL 13.0 - 17.0 g/dL [facility] Lymphocytes/100 WBC (Bld) 7.8 % [facility] MCH (RBC) [Entitic mass] 30.4 pg 26.0 - 34.[address] [facility] MCHC (RBC) [Mass/Vol] 33.8 g/dL 30.5 - 36.0 g/dL [facility] MCV (RBC) [Entitic vol] 89.9 fL 80.0 - 100.[address] [facility] Monocytes/100 WBC (Bld) 3.2 % [facility] Neutrophils/100 WBC (Bld) 87.1 % [facility] RBC (Bld) [#/Vol] 4.87 10*6/uL 4.20 - 6.0 0 m/uL [facility] No Panel Informationon 10-11 Interpretation and review of laboratory results Abnormal [facility] CNOVon 10-08-2024 CNOV Office Visit (RADTSA ) JINNYMATEO ([id number]) 1960 M Date Time Provider Department 10/08/24 [...] BLOOD COUNT AND DIFFERENTIAL [SQCBCDIF] Order #: [id number] FUTURE Prescriptions as of 10/08/2024 - predniSONE [...] by Severo DENT on 10/08/24 Normal [facility] CBC W Auto Differential pane l (Bld)on 10-04-2024 Basophils (Bld) [#/Vol] 0.03 10*3/uL [facility] Differential cell count method Nom (Bld) Auto [facility] Eosinophils (Bld) [#/Vol] [facility] Eosinophils/100 WBC (Bld) 0.0 % [facility] Hemoglobin (Bld) [Mass/Vol] 15.0 g/dL 13.0 - 17.0 g/dL [facility] Immature granulocytes (Bld) [#/Vol] 0.10 10*3/uL High [facility] Immature granulocytes/100 WBC (Bld) 0.9 % [facility] Lymphocytes (Bld) [#/Vol] 1.30 10*3/uL [facility] Monocytes (Bld) [#/Vol] 0.40 10*3/uL [facility] Neutrophils (Bld) [#/Vol] 9.47 10*3/uL High [facility] Nucleated RBC (Bld) [#/Vol] [facility] Nucleated RBC/100 WBC (Bld) [Ratio] 0.0 % /[address] [facility] Platelet mean volume (Bld) [Entitic vol] 8.6 fL Low 9.0 - 12.[address] [facility] Platelets (Bld) [#/Vol] 330 10*3/uL [facility] WBC (Bld) [#/Vol] 11.30 10*3/uL High [facility] Basophils (Bld) [#/Vol] 0.03 10*3/uL Normal <0.11 [facility] Comment on above: Order Comment: Speci men Type: BLOOD SPECIMENOrdering Facility: [facility] Address: [address] [place] [address] Performed By: #### 5 7021-8 ####[facility] LABCLIA [id number] [place] [address] Basophils/100 WBC (Bld) 0.3 % Normal [facility] Comment on above: Order Comment: Speci men Type: BLOOD SPECIMENOrdering Facility: [facility] Address: [address] [place] [address] Performed By: #### 5 7021-8 ####[facility] LABCLIA [id number] [place] [address] Differential cell count method Nom (Bld) Auto Normal [facility] Comment on above: Order Comment: Speci men Type: BLOOD SPECIMENOrdering Facility: [facility] Address: [address] [place] [address] Performed By: #### 5 7021-8 ####[facility] LABCLIA [id number] [place] [address] Eosinophils (Bld) [#/Vol] 10*3/uL Normal <0.46 [facility] Comment on above: Order Comment: Speci men Type: BLOOD SPECIMENOrdering Facility: [facility] Address: [address] [place] [address] Performed By: #### 5 7021-8 ####[facility] LABCLIA [id number] [place] [address] Eosinophils/100 WBC (Bld) 0.0 % Normal [facility] Comment on above: Order Comment: Speci men Type: BLOOD SPECIMENOrdering Facility: [facility] Address: [address] [place] [address] Performed By: #### 5 7021-8 ####[facility] LABCLIA [id number] [place] [address] Erythrocyte distribution width (RBC) [Ratio] 13.5 % Normal 11.5-15.0 [facility] Comment on above: Order Comment: Speci men Type: BLOOD SPECIMENOrdering Facility: [facility] Address: [address] [place] [address] Performed By: #### 5 7021-8 ####[facility] LABCLIA [id number] [place] [address] Hematocrit (Bld) [Volume fraction] 43.9 % Normal 39.0-51.0 [facility] Comment on above: Order Comment: Speci men Type: BLOOD SPECIMENOrdering Facility: [facility] Address: [address] [place] [address] Performed By: #### 5 7021-8 ####[facility] LABCLIA [id number] [place] [address] Hemoglobin (Bld) [Mass/Vol] 15.0 g/dL Normal 13.0-17.0 [facility] Comment on above: Order Comment: Speci men Type: BLOOD SPECIMENOrdering Facility: [facility] Address: [address] [place] [address] Performed By: #### 5 7021-8 ####[facility] LABCLIA [id number] [place] [address] Immature granulocytes (Bld) [#/Vol] 0.10 10*3/uL High <0.10 [facility] Comment on above: Order Comment: Speci men Type: BLOOD SPECIMENOrdering Facility: [facility] Address: [address] [place] [address] Performed By: #### 5 7021-8 ####[facility] LABCLIA [id number] [place] [address] Immature granulocytes/100 WBC (Bld) 0.9 % Normal [facility] Comment on above: Order Comment: Speci men Type: BLOOD SPECIMENOrdering Facility: [facility] Address: [address] [place] [address] Performed By: #### 5 7021-8 ####[facility] LABCLIA [id number] [place] [address] Lymphocytes (Bld) [#/Vol] 1.30 10*3/uL Normal 1.00-4.00 [facility] Comment on above: Order Comment: Speci men Type: BLOOD SPECIMENOrdering Facility: [facility] Address: [address] [place] [address] Performed By: #### 5 7021-8 ####[facility] LABCLIA [id number] [place] [address] Lymphocytes/100 WBC (Bld) 11.5 % Normal [facility] Comment on above: Order Comment: Speci men Type: BLOOD SPECIMENOrdering Facility: [facility] Address: [address] [place] [address] Performed By: #### 5 7021-8 ####[facility] LABCLIA [id number] [place] [address] MCH (RBC) [Entitic mass] 30.5 pg Normal 26.0-34.0 [facility] Comment on above: Order Comment: Speci men Type: BLOOD SPECIMENOrdering Facility: [facility] Address: [address] [place] [address] Performed By: #### 5 7021-8 ####[facility] LABCLIA [id number] [place] [address] MCHC (RBC) [Mass/Vol] 34.2 g/dL Normal 30.5-36.0 [facility] Comment on above: Order Comment: Speci men Type: BLOOD SPECIMENOrdering Facility: [facility] Address: [address] [place] [address] Performed By: #### 5 7021-8 ####[facility] LABCLIA [id number] [place] [address] MCV (RBC) [Entitic vol] 89.2 fL Normal 80.0-100.0 [facility] Comment on above: Order Comment: Speci men Type: BLOOD SPECIMENOrdering Facility: [facility] Address: [address] [place] [address] Performed By: #### 5 7021-8 ####[facility] LABCLIA [id number] [place] [address] Monocytes (Bld) [#/Vol] 0.40 10*3/uL Normal <0.87 [facility] Comment on above: Order Comment: Speci men Type: BLOOD SPECIMENOrdering Facility: [facility] Address: [address] [place] [address] Performed By: #### 5 7021-8 ####[facility] LABCLIA [id number] [place] [address] Monocytes/100 WBC (Bld) 3.5 % Normal [facility] Comment on above: Order Comment: Speci men Type: BLOOD SPECIMENOrdering Facility: [facility] Address: [address] [place] [address] Performed By: #### 5 7021-8 ####[facility] LABCLIA [id number] [place] [address] Neutrophils (Bld) [#/Vol] 9.47 10*3/uL High 1.45-7.50 [facility] Comment on above: Order Comment: Speci men Type: BLOOD SPECIMENOrdering Facility: [facility] Address: [address] [place] [address] Performed By: #### 5 7021-8 ####[facility] LABCLIA [id number] [place] [address] Neutrophils/100 WBC (Bld) 83.8 % Normal [facility] Comment on above: Order Comment: Speci men Type: BLOOD SPECIMENOrdering Facility: [facility] Address: [address] [place] [address] Performed By: #### 5 7021-8 ####[facility] LABCLIA [id number] [place] [address] Nucleated RBC (Bld) [#/Vol] 10*3/uL Normal <0.01 [facility] Comment on above: Order Comment: Speci men Type: BLOOD SPECIMENOrdering Facility: [facility] Address: [address] [place] [address] Performed By: #### 5 7021-8 ####[facility] LABCLIA [id number] [place] [address] Nucleated RBC/100 WBC (Bld) [Ratio] 0.0 /100 WBC Normal [facility] Comment on above: Order Comment: Speci men Type: BLOOD SPECIMENOrdering Facility: [facility] Address: [address] [place] [address] Performed By: #### 5 7021-8 ####[facility] LABIA [id number] [place] [address] Platelet mean volume (Bld) [Entitic vol] 8.6 fL Low 9.0-12.7 [facility] Comment on above: Order Comment: Speci men Type: BLOOD SPECIMENOrdering Facility: [facility] Address: [address] [place] [address] Performed By: #### 5 7021-8 ####[facility] LABCLIA [id number] [place] [address] Platelets (Bld) [#/Vol] 330 10*3/uL Normal 150-400 [facility] Comment on above: Order Comment: Speci men Type: BLOOD SPECIMENOrdering Facility: [facility] Address: [address] [place] [address] Performed By: #### 5 7021-8 ####[facility] LABCLIA [id number] [place] [address] RBC (Bld) [#/Vol] 4.92 10*6/uL Normal 4.20-6.00 [facility] Comment on above: Order Comment: Speci men Type: BLOOD SPECIMENOrdering Facility: [facility] Address: [address] [place] [address] Performed By: #### 5 7021-8 ####[facility] LABCLIA [id number] [place] [address] WBC (Bld) [#/Vol] 11.30 10*3/uL High 3.70-11.00 [facility] Comment on above: Order Comment: Speci men Type: BLOOD SPECIMENOrdering Facility: [facility] Address: [address] [place] [address] Performed By: #### 5 7021-8 ####[facility] LABCLIA [id number] [place] [address] [facility] CBC W AUTO DIFF BLDon [facility] BASOPHILS # BLD AUTO 0.03 [facility] DIFFERENTIAL METHOD BLD Auto [facility] EOSINOPHIL # BLD AUTO <0.03 [facility] LYMPHOCYTES # BLD AUTO 1.3 [facility] MONOCYTES # BLD AUTO 0.4 [facility] NEUTROPHILS # BLD AUTO 9.47 [facility] NRBC # BLD AUTO <0.01 [facility] NRBC/100 WBC BLD-RTO 0 /100 WBC [facility] PLATELET # BLD AUTO 330 [facility] PMV BLD AUTO 8.6 fL Low 9.0 - 12.7 fL [facility] WBC # BLD AUTO 11.3 High [facility] Eosinophils/100 WBC (Bld) 0 % [facility] Hemoglobin (Bld) [Mass/Vol] 15 g/dL 13.0 - 17.0 g/dL [facility] IMM GRANULOCYTES # BLD AUTO 0.1 High [facility] IMM GRANULOCYTES/LEUK NFR BLD AUTO 0.9 % [facility] Specimen Type: BLOOD SPECIMEN [facility] Address: [address], [place] [id number] Original Ordering Provider: Severo Mohan 10-04-2024 CNOV Office Visit (RADTSA ) MATEO STEARNS ([id number]) 1960 M Date Time Provider Department 10/04/24 [...] BLOOD COUNT AND DIFFERENTIAL [SQCBCDIF] Order #: [id number]. #:[id number] Prescriptions as of 10/04/2024 - predniSONE (DELTASONE) [...] 06/24/2024 Visit Notes: >> Dayanna Call LPN [facility] Oct 04, 2024 3:20 PM Status: [...] by DAYANNA CALL on 10/04/24 Normal [facility] Laboratory - Hematology and Cell countson 10-04-2024 Basophils/100 WBC (Bld) 0.3 % [facility] Erythrocyte distribution width (RBC) [Ratio] 13.5 % 11.5 - 15.0 % [facility] Hematocrit (Bld) [Volume fraction] 43.9 % 39.0 - 51.0 % [facility] Lymphocytes/100 WBC (Bld) 11.5 % [facility] MCH (RBC) [Entitic mass] 30.5 pg 26.0 - 34.[address] [facility] MCHC (RBC) [Mass/Vol] 34.2 g/dL 30.5 - 36.0 g/dL [facility] MCV (RBC) [Entitic vol] 89.2 fL 80.0 - 100.[address] [facility] Monocytes/100 WBC (Bld) 3.5 % [facility] Neutrophils/100 WBC (Bld) 83.8 % [facility] RBC (Bld) [#/Vol] 4.92 10*6/uL 4.20 - 6.0 0 m/uL [facility] No Panel Informationon 10-04 Interpretation and review of laboratory results Abnormal [facility] CNOVon 10-01-2024 CNOV Office Visit (RADTSA ) JINNYMATEO MARSHALL ([id number]) 1960 M Date Time Provider Department 10/01/24 10:30 AM Severo DENT During your visit today, we recorded the following information about you: Temperature Pulse Respiration Blood pressure 97.9 degrees 99/minute 18/minute 129/83 Weight 67.6 kg Severo Dent MD 10/01/2024 10:51 AM Signed Radiation Oncology - On Treatment Review (OTR) Note PATIENT NAME: Mateo Stearns PATIENT DIAGNOSIS: Prostate adenocarcinoma, initial PSA 4.46, biopsy Westford score 3 + 3 = 6 (grade [...] Encounter Status:Closed by Severo DENT on 10/01/24 [facility] CNOVon 09-25-2024 CNOV Office Visit (RADTSA ) MATEO STEARNS ([id number]) 1960 M Date Time Provider Department 09/25/24 2:00 PM Severo DENT [facility] During your visit today, we recorded the following information about you: Weight 67.1 kg Severo Dent MD 09/26/2024 4:56 PM Signed Radiation Oncology - On Treatment Review (OTR) Note PATIENT NAME: Mateo Stearns PATIENT DIAGNOSIS: Prostate adenocarcinoma, initial PSA 4.46, biopsy Westford score 3 + 3 = 6 (grade [...] Severo Dent MD Referring Provider: Severo DENT [[id number]] Allergies As of Date: 09/25/2024 (No Known [...] Encounter Status:Closed by Severo DENT on 09/26/24 [facility] 09-24-2024 [facility] Telephone ([employer] ITA) MATEO STEARNS ([id number]) 1960 M Date Time Provider Department 09/24/24 Severo DENT [facility] During your visit today, we [...] BLOOD COUNT AND DIFFERENTIAL [SQCBCDIF] Order #: [id number] FUTURE Prescriptions as of 09/24/2024 - predniSONE [...] Encounter Status:Closed by DAYANNA CALL on 09/24/24 [facility] 09-17-2024 CNOV Office Visit (RADTSA ) MATEO STEARNS ([id number]) 1960 Date Time Provider Department 09/17/24 11:45 AM Severo DENT During your visit today, we recorded the following information about you: Referring Provider: Severo DENT [[id number]] Allergies As of Date: 09/17/2024 (No Known Allergies) Date Reviewed: 09/11/2024 Reviewed by: Dayanna Call LPN - Fully Assessed Reason for Visit: Simulation Request Form [4065] Primary Visit Diagnosis:Malignant neoplasm of prostate (HCC) [C61] Order(s):RADIATION TREATMENT PER RADIATION ONCOLOGIST PLAN [[id number]] Order #: [id number]: 1 PT ED CANCER [[id number]] Order #: [id number]: 1 CT SIM PLANNING RADIATION ONCOLOGY [[id number]] Order #: [id number] Prescriptions as of 09/17/2024 - predniSONE (DELTASONE) [...] Encounter Status:Closed by Severo DENT on 09/17/24 [facility] 09-14-2024 CNPN Telephone (RADTSA) MATEO STEARNS ([id number]) 1960 Date Time Provider Department 09/14/24 Severo DENT [employer] During your visit today, we recorded the [...] Encounter Status:Closed by MONA MELVIN on 09/14/24 [facility] CNOVon 09-11-2024 CNOV Office Visit (RADTSA ) MATEO STEARNS ([id number]) 1960 M Date Time Provider Department 09/11/24 [...] DIAGNOSIS: Prostate adenocarcinoma, initial PSA 4.46, biopsy Westford score 3 + 3 = 6 (grade group 1), clinical stage T1c, N0, M0, stage I [cT1a-c/T2a, N0, M0, PSA <10, GG 1] (AJCC 8th ed.), s/p TRUS Random biopsy. HPI: Patient in for follow-up to discuss treatment options again. Laboratory: HEXIO genomic risk score: 0.43 (low risk) PSA. [...] IMRT a (more content not included)... [facility] Interpretation and review of laboratory results Abnormal [facility] PROSTATE SPECIFIC ANTIGEN DX 7.20 ng/mL High NINF - 4.00 ng/mL [facility] CLINISYNC No Panel Informationon 09-07 [facility] CNOVon 07-12-2024 CNOV Office Visit (RADTSA ) MATEO STEARNS ([id number]) 1960 [place] Date Time Provider Department 07/12/24 1:15 PM [...] with prostate adenocarcinoma, initial PSA 4.46, biopsy Westford score 3 + 3 = 6 (grade [...] checked (more content not included)... Normal [facility] CNOVon 06-21-2024 CNOV Office Visit (RADTSA ) JINNYMATEO MARSHALL ([id number]) 1960 M Date Time Provider Department 06/21/24 [...] on 05/01/2024 with the finding of adenocarcinoma, Westford 6 (3+3) from left lateral base, left [...] aches (more content not included)... Normal [facility] CNOVon 06-01-2024 CNOV Office Visit (ZAK ) MATEO STEARNS ([id number]) 1960 [place] Date Time Provider Department 06/01/24 1:45 PM AMANDEEP CRISOSTOMO During your visit today, we recorded the following information about you: Pulse Blood pressure Weight Height 88/minute 138/81 68 kg 1.753 m Amandeep Crisostomo MD 06/24/2024 4:18 PM Signed Referring Provider: Chief Complaint: Recently diagnosed CaP HPI: 63 year old male from [place], [place] with a PMHx of COPD (40 pack-year smoker), Afib (on ASA), and GERD diagnosed with CAP in 05/20 which showed 2 cores of Westford 6 disease. He has sever COPD with [...] review Assessment 63 year old male from [place], [place] with a PMHx of COPD (40 pack-year smoker and poor oxygenation status), Afib (on ASA), and GERD diagnosed with CAP in 05/20 which showed 2 cores of Westford 6 disease. Recently had more + cores on a repeat biopsy and is here (more content not included)... Normal [facility] URINALYSIS, REFLEX MICROSCOP ICon 06-01-2024 Bilirubin Ql (U) Negative Negative [facility] Clarity (Unsp spec) Clear Clear [facility] Color (U) Yellow Yellow [facility] Glucose Test strip (U) [Mass/Vol] Negative Negative [facility] Hemoglobin Ql (U) Negative Negative [facility] Interpretation and review of laboratory results Normal [facility] Ketones Ql (U) Negative Negative [facility] Leukocyte esterase Test strip Ql (U) Negative Negative [facility] Nitrite Ql (U) Negative Negative [facility] pH (U) 5.5 [pH] NINF - 8.[address] [facility] Protein (U) [Mass/Vol] Negative Negative [facility] Specific gravity (U) [Rel density] 1.009 1.005 - 1.[address] [facility] Urobilinogen Ql (U) 0.2 EU/dL 0.2-1.0 EU/dL [facility] This test was developed and its performance characteristics determined by [facility]'s [facility] ([facility]). It has not been cleared or approved by the FDA. [facility] is regulated under CLIA as qualified to perform high-complexity testing. This test is used for clinical purposes. It should not be regarded as investigational or for research. [facility] Bilirubin Ql (U) Negative Normal Negative [facility] Comment on above: Order Comment: Speci men Type: URINE SPECIMENOrdering Facility: [facility] Address: [address] [place] [address] Performed By: #### L [id number] ####[facility] LABIA [id number] [place] [address] [place] Clarity (Unsp spec) Clear Normal Clear [facility] Comment on above: Order Comment: Speci men Type: URINE SPECIMENOrdering Facility: [facility] Address: [address] [place] [address] Performed By: #### L [id number] ####[facility] [id number] [place] [address] [place] Color (U) Yellow Normal Yellow [facility] Comment on above: Order Comment: Speci men Type: URINE SPECIMENOrdering Facility: [facility] Address: [address] [id number] Performed By: #### L [id number] ####[facility] LABCLIA [id number] [address] [address] [place] Glucose Test strip (U) [Mass/Vol] Negative Normal Negative [facility] Comment on above: Order Comment: Speci men Type: URINE SPECIMENOrdering Facility: [facility] Address: [address] [place], [place] [address] Performed By: #### L [id number] ####[facility] LABCLIA [id number] [place] [address] [place] Hemoglobin Ql (U) Negative Normal Negative [facility] Comment on above: Order Comment: Speci men Type: URINE SPECIMENOrdering Facility: [facility] Address: [address] [place], [place] [address] Performed By: #### L [id number] ####[facility] LABCLIA [id number] [place] [address] [place] Ketones Ql (U) Negative Normal Negative [facility] Comment on above: Order Comment: Speci men Type: URINE SPECIMENOrdering Facility: [facility] Address: [address] [id number] Performed By: #### L [id number] ####[facility] LABCLIA [id number] [place] [id number] [place] Leukocyte esterase Test strip Ql (U) Negative Normal Negative [facility] Comment on above: Order Comment: Speci men Type: URINE SPECIMENOrdering Facility: [facility] Address: [address] [place], [place] [address] Performed By: #### L [id number] ####[facility] LABCLIA [id number] [place] [id number] [place] Nitrite Ql (U) Negative Normal Negative [facility] Comment on above: Order Comment: Speci men Type: URINE SPECIMENOrdering Facility: [facility] Address: [address] [place] [address] Performed By: #### L [id number] ####[facility] LABCLIA [id number] [place] [address] [place] pH (U) 5.5 [pH] Normal <8.5 [facility] Comment on above: Order Comment: Speci men Type: URINE SPECIMENOrdering Facility: [facility] Address: [address] [place] [address] Performed By: #### L [id number] ####[facility]IA [id number] [place] [address] [place] Protein (U) [Mass/Vol] Negative Normal Negative [facility] Comment on above: Order Comment: Speci men Type: URINE SPECIMENOrdering Facility: [facility] Address: [address] [place] [address] Performed By: #### L [id number] ####[facility]IA [id number] [place] [address] [place] Specific gravity (U) [Rel density] 1.009 Normal 1.005-1.030 [facility] Comment on above: Order Comment: Speci men Type: URINE SPECIMENOrdering Facility: [facility] Address: [address] [place] [address] Performed By: #### L [id number] ####[facility] LABIA [id number] [place] [address] [place] Urobilinogen Ql (U) 0.2 EU/dL Normal 0.2-1.0 EU/dL [facility] Comment on above: Order Comment: Speci men Type: URINE SPECIMENOrdering Facility: [facility] Address: [address] [place] [address] Performed By: #### L [id number] ####[facility] LABCLIA [id number] [address] [address] [place] Ambulatory Visit Summaryon [...] [facility] [address] , [place] [phone] Someone Will Contact You Regarding These Appointments [facility] External Ambulatory Referral, Other (needs to be [...] often, espec (more content not included)... Normal [facility] Patient Educationon 05-21-20 Patient Education Oncology Prostate [...] under a microscope. This is called the Westford score and the total score can range from 6?10, indicating how likely it is that the cancer will spread (metastasize) to other parts of the body. The higher the score, the greater the likelihood that the cancer will spread. ? Westford 6 or lower: This indicates that the cancer cells look similar to normal prostate cells (well differentiated). ? Brenden 7: This indicates that the cancer cells look somewhat similar to normal prostate cells (moderately differentiated). ? Westford 8, 9, or 10: This indicates that [...] external be (more content not included)... Normal [facility] Urology Office/Clinic Noteon 05-21-2024 Urology Office/Clinic Note [...] 10%. 2 HGPINs. S/p TRUS/bx 05/01/24 - Westford 6 (3+3) in 9/12 cores. 30% core [...] Reina, URL [facility] [address] [place] [phone] Additional Instructions: referral to [facility] to discuss prostatectomy Patient Education Prostate Cancer IVesta, personally scribed for Dr. Vora on 05/21/2024 12:43:00. . Documentation recorded by the scribVesta edwards, accurately reflects the services(s) I performed [...] Recorded zoste (more content not included)... Normal [facility] Comment on above: Result Comment: Elec tronically Signed By: Rufina VORA MD\.br\Date and Time Signed: 05/21/24 12:44 EDT\.br\Electronically Co-Signed By: Vesta Cortes\.br\Date and Time Co-Signed: 05/21/24 12:43 EDT Coding Summary.on 05-17-2024 Coding Summary. [id number]+PG h lYWQ+KW0VJBCoI75mhXYn wA2zH0ECMTwZUsrjQMXMI OeTCsQzvkDzGJ1niDTmQV Ju IC8+VP3wPYCxJmncnNYbr 0Z2tWE4Z38fnf0oXMxrdQ M0UMJnZxVdmkrjr4ykuTl 6IDcuNmluOyBt KBVayS75BRP8dC53An07g AQnfCEgr3jryHt1AqDpLD XxSLK5oAzaIIudg2NxLWK gA87fmMCwi3N2 UKTwcJdppYXyMuSxvER1r W5gYVhdjcftn2xrnaepSe z9iu78yBCzu6B6yYE8J7E ayaW3DFVpoSQy WvywnUMEeC0hpvrif9lau bhwVlJgWNMnWKg8NHy0VE YppVzaGvQbNO95SYE4ASX odkAqF6KiGYMn lAvbXsQ7p1W3Fk6WG4RFQ bdxC7JMLJXMUNcigTR+PC 32jb81J6DwPnooFgy5SWZ bSJL0fEK6vQ0j VMFpPLhkj3M0pAQ4P3Ixg oWadm1wb8pyZIKqCQqiX5 3syRTnq2Q8QMBxbQR4BOV dhKnyQjNyqP68 Oyc+VSKlgErjd9ZgWlnig 8vjc7ztpIh3DrylWCDbyu VmkSjxDNN8y5EfVq1tMSI ycTP1wRA5gW5t EaGjCcS3KIflM232QwDgm BAbGdmzT87aZ2HrkNV+PH KqBvv7BBZrqAoeOQ1jJ1V hZGRpbmctbGVm nZcvYO3gTFPstxbuIFPsf D0wOJSmM2z0IhXqChI8SN dsT6ObRORwnktvJq29nI1 pFdWyDdA0TDdj S1QvtpT6TYEomSHtHNzmX TT7N67fv9V8TFBgRMGqTE S8rLO8zX2weSvwpfvoyZO mdDsgdmVydGlj FQhbMZsaQ130TDGfeNraT kNvZGluZyBEYXRlOiAgMD YvMjAvMjAyNDwvdGQ+PHR gWWO1uQsbVVDs iQZkHAnuUc9dyGcpnBjsB Z2zCAOpwiuqXBFyiV4lKJ ScyPAdcBjdKC1xMUCphka mj504FfMxJGX0 WXQmeEFdL3HeaV3gXfYnM CBvPAEhQ4YuuQYpHFrkQ9 31CRptBmQ0ETGwkyZsL8Y sLWFsaWduOiB0 t0Z5Dw6Uh3EnypicJ5Cuc TGeArIwGigkJBu5N1EgNy wvdHI+DU06ICWoTF91ISb 3TPA2dQqdVWxf PNHxS2WjvY1zJwGiNQWlF GRkOyc+PHRhYmxlIHdpZH RoPScxMDAlJyBzdHlsZT0 pSo4cWNIuOXKq gSajrAAjJyVac6mbDMVzM QciEL2igSshB4EsmEX8XY Gij4d0Ut17T77zP6ZvtKF +TYSrmVO2rJH6 jZ8wFyNkDdQ0AGksH368H dYquARnQroor2orl5rnzL d7WjO9DJZfwcEcqNaiVGW 5m7VtYt74M55u IHdpZHRoPSIxNSUiIHZhb Atzuz4qwX3qUc6+PGNvbC S8eSD9dH3rZlRhDwW0VFn yO512NmUucBYl Rbrpv9dnw6tcxTs9NcOgH FIdblVmkUvhWYN4j9GwNs 46U9FqxNmbj9AfFhb3np8 8yKBuk7C5kIA2 Q7HxSOEgqelyrSNalBtkA U4qATKdvawoYCUarG2zJX DlA3u9LwWqDvB2OTvzM2B ljoN7WPNcmGSu DMBtuCWFnD0cmlegy9ole kqeHsZvHPEdGNd2QHm8FG YagWbwUbLbOCJ7OvU2IVU 7jOFabJ5kuKwn dauxsN1nWae+DCJ7yZEbd PBDHA7eAtwojZF+PHRkIH U6kIgrSBtvZVCiiQ8hPDO hM4d2LpSgQvX4 LOhiZ8DhpsV8HSDwhUJdV XMphQCFjF3ivbikb8varb coEcNtPSQqXEm1YLk0OOR saWduOiBsZWZ0 ZgD2GFL5aQTjhC3dcDplt patwH5bPro+QmlydGggRG E1FBm8K9PqCud0GJDonXa nHL9nmRXwQSrr If1thBehfKgoZL4oKETdm lshq704FaYav4evDFZriH ZiBOenNHB7O66od2W9JEH yXJNbKHL0nPV3 wR3xxVpkxuexfVVkrOlyg yNuyCjpJEnxLCjiW829DO WmtXiiRuDqKRa6V0ZzSvw 6GZVzlWqbCU7x kPVfXFtnVa6sdOqwbTorE D6aIDNbokpim927CsAvs8 gpIUOfvRViINgvOPW9K48 tn1I0SYVuWJKu YVD0xEI5oZ4mzMbaucgwi GVmdDsgdmVydGljYWwtYW wlN464HBQdxNoxDrGqeZu 9U8TcPny3WUBz jWunTE3rrAWmIYleNh3bf PmtmIudRL4xRIAzdlawb4 17CmWip8iaZOQyjEBoJDl kSLT0W30zn8I3 FOGnTCKeQCK0nDP3sI5uv GlnbjogbGVmdDsgdmVydG esVQolCItiO007TFLvdMb nPlBhdGllbnQg VXyfPAk1I0XqJbdzcYG+P A53TUVpAG41uMTluUMyp4 gviPu4TtUeKGZeRWC3oAo bLZzxd0CoYFTj C88liTPhq5I7JZNyoZgkg GMrHzBynTP8lJ7gVXtrxo bvd9kuxlpbKvvdi3ywdz3 1iF93L19pXQdn ZHRoPSIzMCUiIHZhbGlnb z1foB4kCv9+BFXfgWG7qS J1lN1lYYVjWkV3OPhlX75 9InRvcCIvPjxj k8gwl2exrHw1KrA3KCWci jOmcWdjKHS3n7DnPa71F7 9sIHdpZHRoPSIyMCUiIHZ idBehpr8gaN1o Ii8+VBKbnSD0gQG3xQ6kU hUjYcM6SMieX188CjFeoD ToPixyU45wK4RtqPI+PHR sTnv0TIHaqJtc NC0wpLMxWVbxOf7lRQO5A hJnIaQmBVxmA3ZvVWAmez jjsctbkVB8HLTsMDTwcY3 9Ap7ddAktEYBg xHOBgB8bcqsxu1kajvhbJ qIyKYGiKSg7GLf9DSHfzH wfLcKuMDI9RdP7DEH4dQD qpX8ccJwnfcer iT0tN0PoMRCkppjeEk29z O8fNuNgYxW3HAugCzd+SE 3XSTnoR0kTIXNJF0XUMWO gVzwvdGQ+PHRk EDG4qYkxTRvhHHJgxG3zS GTbH4t3SrZxJeV1CWpcJ8 DzZUUfoyqfJk17bQ6oAhB vKbG8OUjpF9Rh fsU5ZPTqnPUqLZxzETS8O 73cy5V4HXMiOVSmXTY6iO T1bX0txDzharizoIKlgWa gdmVydGljYWwt IXujA492VUCctRtwVuU5N xH7EfA7KQc2V2ZaBpp8WX BevQqxIH7xtNGpHJytNt1 avCmajDdrLG1q GZYyevjuGBMgoF1bRGUtn YUrbJtuTK2aOEDgavkcp6 00YgPtBYE0KDTqgALyP2U hlF8oIsPiAAEk LHZqT7SkvHJgZTfwK963Q MgtEtD8RXUtkxWmG1FoOH VfiAkzMyW1x3O9Lu87EZD ZZWFyczwvdGQ+ GLVoSNK5hImfVIcoZSTao I8pNBQlM3w7LpQiRxY4VE iwS1PhHHJgddbdAq34sR9 jXjYnFhT7CCff N7XwaxW8DQCgwRNiFHshE EZ2N80yg0N4YCAnBKGrPH R3jIW2xB7sbRmkvgrpvWQ mdDsgdmVydGlj XJpwRBifB607VYSdiIppK w4ggNN1C9OoNgu0YZNmaR mmJP3ngQZjBTbsAr8miHc nrMqwBP0sLVKb xtxpMJSkaB6hCAXjhJYqv QqySG3lZLYngvmop176Or AzADX0GPVkaGFrJ0IhnS0 yOiAjMDAwMDAw F5PbsZBuTPhrJ259QBgjB sZ6MBKcgfAaE2FtQBHjrH ukFqG3u4A2Ty2HcORmTOA mTU34VT00GW90 N7RxUffoeZGimFN+PHRhY mxlIHdpZHRoPScxMDAlJy NagTzcKW7pGa8dFSIrABT vbGxhcHNlOiBj t0hkVGWzYRhpDX6qgIcpL 0YzhAZ8CYUrm1v8Zf69P0 8vE3NonPV+IYEmaWV2vFH 5qN7cFkPjMvG0 BNmzM075MtOrnWXnZfqky 5lxy2cljLf0OoXvSKBsiq PerOykBCE9b7KaLc46B02 sIHdpZHRoPSIy OQBaLEDikHlcou9imN7bN i8+OATrmPE6vQQ8fL1cWc SkGjS8LLgjC503BxGuiVN cXnwyE15aL9Hy dXA+BVLrIca9XUAdjMcuF O8ybOKcJMieJf8uJTQ6Ly RoPbOxEFkeQ9WhAMPqpiy xiivwhNY9AFGs UMOpzI83Vn3glKvgSu0yF VEvOEL2WJFalRQyI9GudR 9mXrRuSCLxTPMbB3DghSH mFMikB690FRwe OzZ0JIZnhxXqW4HcJUJlg VipHdP6s7G8Px6XmDrhhY GbBB0pGwThVXb1N4KpVeg 7WZPbvYozKF2x vQNhIXvoLr5kcXshmPqpI X6bUFQjdmkmf393HhVkd0 jaMXGlnEHhXHytZVU7P41 si1A3XPVdLIQl HDW5yAO3wU4jtBjaerfjx GVmdDsgdmVydGljYWwtYW vbA180SXQwsYcoWvHRKdg 3N6MfGgq4LFQq nJbtQL9uhOGsXHxdHn1uk CiydCmfIL0lCRIpmyxja3 49RaYvd8ecJGRzzQAbXUc sNLG6X98ud1J9 TWZrXHXaCDE7eTW9kD7or GlnbjogbGVmdDsgdmVydG zlOFpeAVdnT840AYYsgGe nIy1LRas4W4Cu Kvb6EFSbuZaeMR4dhHOkD VmdEv3swYtznCneHY4iTW Ahiecfw687IfEmo5fzLCB wcHQgVGltZXM7 B37mg9A9IMYmAZAzIKD9n OM1aA7tgAgsicmhuPIvxA kafpZdwSbqBIweWNloA84 6IHRvcDsnPlBh eWVyOjwvdGQ+NZ50nn70F 7HzHbgvAsi1QGHtATY8wA H8kW0zXPGxVBknd6P6lRV 5C1QicpUpqw4m p0vjVLZiCKciD (more content not included)... Normal [facility] Prostate Histology ([facility]) on 05-16-2024 Prostate Histology Diagnosis Info Invalid Interpretation Code [facility] Comment on above: Order Comment: left base [...] Interpretation - - Acinar adenocarcinoma of prostate; Westford score 6(3+3); Tumor measures 0.1 cm in [...] not identified. MicroScopic Description - E:Prostate,Left Lateral Hartman:Needle Biopsy Interpretation - - Atypical glands suspicious but not diagnostic for adenocarcinoma. MicroScopic Description - F:Prostate,Left Hartman:Needle Biopsy Interpretation - - Benign prostatic tissue. MicroScopic Description - G:Prostate,Right Base:Needle Biopsy Interpretation - - Benign prostatic tissue. MicroScopic Description - H:Prostate,Right Lateral Base:Needle Biopsy Interpretation - - Benign prostatic tissue. MicroScopic Description - I:Prostate,Right Mid:Needle Biopsy Interpretation - - Benign prostatic tissue. MicroScopic Description - J:Prostate,Right Lateral Mid:Needle Biopsy Interpretation - - Benign prostatic tissue. MicroScopic Description - K:Prostate,Right Hartman:Needle Biopsy Interpretation - - Benign prostatic tissue. MicroScopic Description - L:Prostate,Right Lateral Hartman:Needle Biopsy Interpretation - - Benign prostatic tissue. MicroScopic Description - M:Prostate,Left Base:Needle Biopsy Interpretation - - Acinar adenocarcinoma of prostate; Brenden score 6(3+3); Tumor measures 0.2 cm in length; 9% of the core involved by tumor; 1 of 1 core involved; Perineural invasion not identified. MicroScopic Description - N:Prostate,Left Base:Needle Biopsy Interpretation - - Acinar adenocarcinoma of prostate; Westford score 6(3+3); Tumor measures 0.4 cm in [...] Interpretation - - Acinar adenocarcinoma of prostate; Westford score 6(3+3); Tumor measures 0.1 cm in length; 25% of the core involved by tumor; 1 of 2 cores involved; Perineural invasion not identified. MicroScopic Description - Q:Prostate,Left Hartman:Needle Biopsy Interpretation - - Acinar adenocarcinoma of prostate; Westford score 6(3+3); Tumor measures 0.1 cm in length; 3% of the core involved by tumor; 1 of 2 cores involved; MicroScopic Description - R:Prostate,Left Hartman:Needle Biopsy Interpretation - - Benign prostatic tissue. [...] on: 05/16/2024 11:46:32 Performed By: #### 1 [id number] #### [facility] [address] [place] [address] Consent for Procedure/Surger yon 05-01-2024 Consent for Procedure/Surgery [id number] .[id number] Normal [facility] Consent for Treatmenton -0 Consent for Treatment [id number] .[id number] Normal [facility] IntraOperative Documentson 0 05-01-2024 IntraOperative Documents [id number] .00TIFF Normal [facility] Main OR Intraoperative Recor don 05-01-2024 Main OR Intraoperative Record IntraOp Document Type FTURO Summary Primary Physician: Rufina VORA MD Finalized Date/Time: 05/01/24 12:17:31 Pt. Name: MATEO STEARNS Nuha/Sex: 1960 Male Med Rec #: [id number] Physician: Rufina VORA MD Financial #: [id number] Pt. Type: O Room/Bed: / Admit/Disch: 05/01/24 [...] Diana Whitlock Role Performed Surgeon - Primary Ophthalmic Surgeon - Primary Scrub - Primary Time In [...] Out Rufina VORA MD, Verified (If Participants Mara Wong RN Applicable) Oswaldo Corey CST, Kimberly A Time [...] By: Mara Wong RN 05/01/24 12:17 Normal [facility] Main OR Preoperative Recordo n 05-01-2024 Main OR Preoperative Record Holding Area Document Type FTURO Summary Primary Physician: Rufina VORA MD Finalized Date/Time: 05/01/24 11:27:32 Pt. Name: MATEO STEARNS/Sex: 1960 Male Med Rec #: [id number] Physician: Rufina VORA MD Financial #: [id number] Pt. Type: O Room/Bed: / Admit/Disch: 05/01/24 [...] MICA Kimball RN, Ruthann 05/01/24 11:27 Normal [facility] Operative Reporton Operative Report Patient: MATEO STEARNS [...] evaluation, 18 total biopsies were taken. Normal [facility] Comment on above: Result Comment: Elec tronically Signed By: DIONY CHANDLER, Rufina Bynum.brenda\Date and Time Signed: 05/01/24 12:04 EDT Outpatient Surgery Discharge Instructionon 05-01-2024 Outpatient Surgery Discharge Instruction [id number] Normal [facility] Patient Educationon 05-01-20 Patient Education Custom Transrectal [...] for your post-operative appointment in 1-2 weeks [phone] or [phone] Normal [facility] Prostate Histology ([facility]) on 05-01-2024 PH Method of Extraction Needle Biopsy Normal [facility] Comment on above: Order Comment: left base x 3 bites Left lateral mid x 3 bites Left apex x 4 bites Performed By: #### 1 [id number] #### [facility] [address] [place] [address] PH Number of Jars 3 Invalid Interpretation Code [facility] Comment on above: Order Comment: left base x 3 bites Left lateral mid x 3 bites Left apex x 4 bites Performed By: #### 1 [id number] #### [facility] [address] [place] [address] PH Specimen 1 L Apx Prostate Normal [facility] Comment on above: Order Comment: left base x 3 bites Left lateral mid x 3 bites Left apex x 4 bites Performed By: #### 1 [id number] #### [facility] [address] [place] [address] PH Specimen 10 R Lat Bse Prost Normal [facility] Comment on above: Order Comment: left base x 3 bites Left lateral mid x 3 bites Left apex x 4 bites Performed By: #### 1 [id number] #### [facility] [address] [place] [address] PH Specimen 11 R Lat Mid Prost Normal [facility] Comment on above: Order Comment: left base x 3 bites Left lateral mid x 3 bites Left apex x 4 bites Performed By: #### 1 [id number] #### [facility] [address] [place] [address] PH Specimen 12 R Lat Apx Prost Normal [facility] Comment on above: Order Comment: left base x 3 bites Left lateral mid x 3 bites Left apex x 4 bites Performed By: #### 1 [id number] #### [facility] [address] [place] [address] PH Specimen 2 L Base Prostate Normal [facility] Comment on above: Order Comment: left base x 3 bites Left lateral mid x 3 bites Left apex x 4 bites Performed By: #### 1 [id number] #### [facility] [address] [place] [address] PH Specimen 3 L Lat Apx Prost Normal [facility] Comment on above: Order Comment: left base x 3 bites Left lateral mid x 3 bites Left apex x 4 bites Performed By: #### 1 [id number] #### [facility] [address] [place] [address] PH Specimen 4 L Lat Bse Prost Normal [facility] Comment on above: Order Comment: left base x 3 bites Left lateral mid x 3 bites Left apex x 4 bites Performed By: #### 1 [id number] #### [facility] [address] [place] [address] PH Specimen 5 L Lat Mid Prost Normal [facility] Comment on above: Order Comment: left base x 3 bites Left lateral mid x 3 bites Left apex x 4 bites Performed By: #### 1 [id number] #### [facility] [address] [place] [address] PH Specimen 6 L Mid Prostate Normal [facility] Comment on above: Order Comment: left base x 3 bites Left lateral mid x 3 bites Left apex x 4 bites Performed By: #### 1 [id number] #### [facility] [address] [place] [address] PH Specimen 7 R Apx Prostate Normal [facility] Comment on above: Order Comment: left base x 3 bites Left lateral mid x 3 bites Left apex x 4 bites Performed By: #### 1 [id number] #### [facility] [address] [place] [address] PH Specimen 8 R Base Prostate Normal [facility] Comment on above: Order Comment: left base x 3 bites Left lateral mid x 3 bites Left apex x 4 bites Performed By: #### 1 [id number] #### [facility] [address] [place] [address] PH Specimen 9 R Mid Prostate Normal [facility] Comment on above: Order Comment: left base x 3 bites Left lateral mid x 3 bites Left apex x 4 bites Performed By: #### 1 [id number] #### [facility] [address] [place] [address] PH Type of Service Technical Only Normal [facility] Comment on above: Order Comment: left base x 3 bites Left lateral mid x 3 bites Left apex x 4 bites Performed By: #### 1 [id number] #### [facility] [address] [place] [address] Patient Educationon 01-02-20 Patient Education Oncology Transrectal [...] near your rectum, especially while sitting. ? [place]-colored urine due to small amounts of blood in your urine. ? A burning feeling while urinating. ? Blood in your stool (feces) or bleeding from your rectum. ? Blood in your semen. Follow these instructions at home: Medicines ? Take unkg-fkv-jyikswn and prescription medicines only as told by [...] provider. Document Revised: 05/10/2022 Document Reviewed: 05/10/2022 [employer] Patient Education ? 2022 [employer] Transrectal Ultrasound-Guided Prostate Biopsy A transrectal [...] including vitamins, herbs, eye drops, creams, and ftri-zjo-mcizkth medicines. ? Any problems you or family [...] as aspirin (more content not included)... Normal [facility] Urology Office/Clinic Noteon 01-02-2024 Urology Office/Clinic Note [...] of prostate cancer. S/p TRUS/bx 05/17/23 - [place] score 6 (3+3) in 2 cores each [...] [facility] [address], [place] [phone] [id number] Additional Instructions: sched repeat TRUS/bx Patient Education [...] Father. I (more content not included)... Normal [facility] Comment on above: Result Comment: Elec tronically Signed By: Rufina VORA MD\.br\Date and Time Signed: 01/02/24 13:53 EST\.br\Electronically Co-Signed By: Vesta Cortes\.br\Date and Time Co-Signed: 01/02/24 13:52 EST [facility] 12-01-2023 Lab Reports [id number] Normal [facility] Ambulatory Visit Summaryon 0 06-06-2023 Ambulatory Visit Summary MATEO STEARNS :1960 Visit Date:06/06/2023 Ambulatory Visit Instructions Your Diagnosis Prostate cancer Sebaceous cyst Tests Performed Urnls Dip Stick Auto w/o Microscopy POC [id number] Your Care Team Attending Physician - Rufina [...] CHANDLER, Rufina Reina Where: [facility] [place] Normal [facility] Patient Educationon 06-06-20 23 Patient Education Oncology [...] under a microscope. This is called the Westford score and the total score can range from 6?10, indicating how likely it is that the cancer will spread (metastasize) to other parts of the body. The higher the score, the greater the likelihood that the cancer will spread. ? Brenden 6 or lower: This indicates that the cancer cells look similar to normal prostate cells (well differentiated). ? Westford 7: This indicates that the cancer cells look somewhat similar to normal prostate cells (moderately differentiated). ? Westford 8, 9, or 10: This indicates that [...] external be (more content not included)... Normal [facility] Urology Office/Clinic Noteon 06-06-2023 Urology Office/Clinic Note [...] 04/08/23 - 4.46 S/p TRUS/bx 05/17/23 - Westford score 6 (3+3) in 2 cores each [...] In 6 months [facility] [address] [place] [phone]- [phone] Additional Instructions: PSA and ANNE-MARIE Patient Education [...] Cigarettes, 02/07/2023 (more content not included)... Normal [facility] Comment on above: Result Comment: Elec tronically Signed By: Rufina VORA MD\.br\Date and Time Signed: 06/06/23 11:52 EDT\.br\Electronically Co-Signed By: Vesta Cortes\.br\Date and Time Co-Signed: 06/06/23 11:47 EDT PSA, FREE AND TOTAL RATIOon 04-13-2023 % Free PSA 12.1 % Normal [facility] Comment on above: Result Comment: The [...] ISTGAL #### [facility] [address] [place] [address] Dr. James Crowley Prostate specific Ag [Mass/Vol] 3.4 ng/mL Normal 0.0-4.0 [facility] Comment on above: Result Comment: Rosa Elena DESHPANDE methodology. . According to the [place] [employer], Serum PSA should decrease and [...] ISTGAL #### [facility] [address] [place] [address] Dr. James Crowley PSA, Free 0.41 ng/mL Normal N/A [facility] Comment on above: Result Comment: Rosa Elena DESHPANDE methodology. Performed By: #### H ISTGAL #### [facility] [address] [place] [address] Dr. James Crowley CBC AUTO DIFFon 04-08-2023 BASO # 0.1 103/ul Normal 0.0-0.1 [facility] Comment on above: Performed By: #### C BC #### [facility] [address] [place] [address] Dr. James Crowley Basophils/100 WBC (Bld) 0.5 % Normal 0.2-2.0 [facility] Comment on above: Performed By: #### C BC #### [facility] [address] [place] [address] Dr. James Crowley EO # 0.1 103/ul Normal 0.0-0.7 [facility] Comment on above: Performed By: #### C BC #### [facility] [address] [address] [address] James Crowley Eosinophils/100 WBC (Bld) 1.3 % Normal 0.9-7.0 [facility] Comment on above: Performed By: #### C BC #### [facility] [address] [place] [address] Dr. James Crowley Erythrocyte distribution width (RBC) [Ratio] 13.5 % Normal 11.0-15.0 [facility] Comment on above: Performed By: #### C BC #### [facility] [address] [place] [address] Dr. James Crowley Hematocrit (Bld) [Volume fraction] 48.4 % Normal 42.0-54.0 [facility] Comment on above: Performed By: #### C BC #### [facility] [address] [place] [address] Dr. James Crowley Hemoglobin (Bld) [Mass/Vol] 15.6 g/dL Normal 14.0-18.0 [facility] Comment on above: Performed By: #### C BC #### [facility] [address] [place] [address] Dr. James Crowley IG # 0.08 10e3/ul Critically high 0.00-0.03 [facility] Comment on above: Performed By: #### C BC #### [facility] [address] [place] [address] Dr. James Crowley IG % 0.8 % Critically high 0.0-0.5 [facility] Comment on above: Performed By: #### C BC #### [facility] [address] [place] [address] Dr. James Crowley LYMPH # 3.1 103/ul Normal 1.2-3.8 [facility] Comment on above: Performed By: #### C BC #### [facility] [address] [place] [address] Dr. James Crowley Lymphocytes/100 WBC (Bld) 29.8 % Normal 20.5-60.0 [facility] Comment on above: Performed By: #### C BC #### [facility] [address] [place] [address] Dr. James Crowley MANUAL DIFF REQ NO Normal [facility] Comment on above: Performed By: #### C BC #### [facility] [address] [place] [address] Dr. James Crowley MCH (RBC) [Entitic mass] 29.3 pg Normal 25.9-34.0 [facility] Comment on above: Performed By: #### C BC #### [facility] [address] [place] [address] Dr. James Crowley MCHC (RBC) [Mass/Vol] 32.2 g/dL Normal 29.9-35.2 [facility] Comment on above: Performed By: #### C BC #### [facility] [address] [place] [address] Dr. James Crowley MCV (RBC) [Entitic vol] 90.8 fL Normal 80.0-94.0 [facility] Comment on above: Performed By: #### C BC #### [facility] [address] [place] [address] Dr. James Crowley MONO # 0.6 103/ul Normal 0.3-0.8 [facility] Comment on above: Performed By: #### C BC #### [facility] [address] [place] [address] Dr. James Crowley Monocytes/100 WBC (Bld) 5.9 % Normal 1.7-12.0 [facility] Comment on above: Performed By: #### C BC #### [facility] [address] [place] [address] Dr. James Crowley NEUT # 6.4 103/ul Normal 1.4-6.5 [facility] Comment on above: Performed By: #### C BC #### [facility] [address] [place] [address] Dr. James Crowley Neutrophils/100 WBC (Bld) 61.7 % Normal 43.0-75.0 [facility] Comment on above: Performed By: #### C BC #### [facility] [address] [place] [address] Dr. James Crowley Platelet mean volume (Bld) [Entitic vol] 9.1 fL Critically low 9.5-13.5 [facility] Comment on above: Performed By: #### C BC #### [facility] [address] [place] [address] Dr. James Crowley PLT 320 103/ul Normal 150-450 [facility] Comment on above: Performed By: #### C BC #### [facility] [address] [place] [address] Dr. James Crowley RBC 5.33 106/ul Normal 4.70-6.10 [facility] Comment on above: Performed By: #### C BC #### [facility] [address] [place] [address] Dr. James Crowley WBC 10.4 103/ul Normal 4.0-11.0 [facility] Comment on above: Performed By: #### C BC #### [facility] [address] [place] [address] CHEST W CONon [...] by: LEONOR MA Date: 2023-04-08 10:41 Normal [facility] LIPID PROFILEon 04-08-2023 CHOL-HDL RATIO NORM SEE BELOW Normal [facility] Comment on above: Result Comment: 3.3 - 4.4 LOW RISK 4.4 - 7.1 AVERAGE RISK 7.1 - 11.0 MODERATE RISK >11.0 HIGH RISK Performed By: #### U NEO, LIPID #### [facility] [address] [address] [address] James Crowley Cholesterol [Mass/Vol] 204 mg/dL Critically high <=200 [facility] Comment on above: Performed By: #### U NEO, LIPID #### [facility] [address] [address] [address] James Crowley Cholesterol in HDL [Mass/Vol] 55 mg/dL Normal 40-60 [facility] Comment on above: Performed By: #### U NEO, LIPID #### [facility] [address] [address] [address] James Crowley Cholesterol in LDL [Mass/Vol] 115.2 mg/dL Normal [facility] Comment on above: Performed By: #### U NEO, LIPID #### [facility] [address] [address] [address] James Crowley Cholesterol.total/C holesterol in HDL [Mass ratio] 3.7 {ratio} Normal [facility] Comment on above: Performed By: #### U NEO, LIPID #### [facility] [address] [address] [address] James Crowley HDL NORMAL > or = 60 mg/dl - LO W CARDIOVASCULAR RISK <40 mg/dl - HIGH CARDIOVASCULAR RISK Normal [facility] Comment on above: Performed By: #### U NEO, LIPID #### [facility] [address] [address] [address] James Crowley LDL CALC NORMAL SEE BELOW Normal [facility] Comment on above: Result Comment: <100 mg/dl OPTIMAL 100 - 129 mg/dl NEAR OR ABOVE OPTIMAL 130 - 159 mg/dl BORDERLINE HIGH 160 - 189 mg/dl HIGH >190 mg/dl VERY HIGH Performed By: #### U NEO, LIPID #### [facility] [address] [place] [address] Dr. James Crowley Triglyceride [Mass/Vol] 169 mg/dL Critically high <=150 [facility] Comment on above: Performed By: #### U NEO, LIPID #### [facility] [address] [place] [address] Dr. James Crowley VLDL CALC 33.8 mg/dL Normal [facility] Comment on above: Performed By: #### U NEO, LIPID #### [facility] [address] [place] [address] Dr. James Crowley PROF 14(COMP METB)on 023 Albumin [Mass/Vol] 3.7 g/dL Normal 3.4-5.0 [facility] Comment on above: Performed By: #### U NEO, LIPID #### [facility] [address] [place] [address] Dr. James Crowley Albumin/Globulin [Mass ratio] 0.9 {ratio} Normal [facility] Comment on above: Performed By: #### U NEO, LIPID #### [facility] [address] [place] [address] Dr. James Crowley ALP [Catalytic activity/Vol] 86 U/L Normal 46-116 [facility] Comment on above: Performed By: #### U NEO, LIPID #### [facility] [address] [place] [address] Dr. James Crowley ALT [Catalytic activity/Vol] 33 U/L Normal 16-63 [facility] Comment on above: Performed By: #### U NEO, LIPID #### [facility] [address] [place] [address] Dr. Jaems Crowley Anion gap [Moles/Vol] 14.8 mmol/L Normal [facility] Comment on above: Performed By: #### U NEO, LIPID #### [facility] [address] [place] [address] Dr. James Crowley AST [Catalytic activity/Vol] 16 U/L Normal 15-37 [facility] Comment on above: Performed By: #### U NEO, LIPID #### [facility] [address] [place] [address] Dr. James Crowley Bilirubin [Mass/Vol] 0.7 mg/dL Normal 0.2-1.0 [facility] Comment on above: Performed By: #### U NEO, LIPID #### [facility] [address] [address] [address] James Crowley Calcium [Mass/Vol] 9.1 mg/dL Normal 8.5-10.1 [facility] Comment on above: Performed By: #### U NEO, LIPID #### [facility] [address] [place] [address] Dr. James Crowley Chloride [Moles/Vol] 107 mmol/L Normal 98-107 [facility] Comment on above: Performed By: #### U NEO, LIPID #### [facility] [address] [place] [address] Dr. James Crowley CO2 [Moles/Vol] 28.0 mmol/L Normal 21.0-32.0 [facility] Comment on above: Performed By: #### U NEO, LIPID #### [facility] [address] [place] [address] Dr. James Crowley Creatinine [Mass/Vol] 1.10 mg/dL Normal 0.70-1.30 [facility] Comment on above: Performed By: #### U NEO, LIPID #### [facility] [address] [place] [address] Dr. James Crowley EGFR-AF ANGOLAN >60 Normal >=60 [facility] Comment on above: Performed By: #### U NEO, LIPID #### [facility] [address] [place] [address] Dr. James Crowley EGFR-NON AF ANGOLAN >60 Normal >=60 [facility] Comment on above: Performed By: #### U NEO, LIPID #### [facility] [address] [place] [address] Dr. James Crowley Globulin (S) [Mass/Vol] 3.9 g/dL Normal [facility] Comment on above: Performed By: #### U NEO, LIPID #### [facility] [address] [place] [address] Dr. James Crowley Glucose [Mass/Vol] 98 mg/dL Normal 74-106 [facility] Comment on above: Performed By: #### U NEO, LIPID #### [facility] [address] [place] [address] Dr. James Crowley Potassium [Moles/Vol] 3.8 mmol/L Normal 3.5-5.1 [facility] Comment on above: Performed By: #### U NEO, LIPID #### [facility] [address] [place] [address] Dr. James Crowley Protein [Mass/Vol] 7.6 g/dL Normal 6.4-8.2 [facility] Comment on above: Performed By: #### U NEO, LIPID #### [facility] [address] [place] [address] Dr. James Crowley Sodium [Moles/Vol] 146 mmol/L Critically high 136-145 [facility] Comment on above: Performed By: #### U NEO, LIPID #### [facility] [address] [place] [address] Dr. James Crowley Urea nitrogen [Mass/Vol] 18.0 mg/dL Normal 7.0-18.0 [facility] Comment on above: Performed By: #### U NEO, LIPID #### [facility] [address] [place] [address] Dr. James Crowley Urea nitrogen/Creatinine [Mass ratio] 16.4 mg/mg Normal [facility] Comment on above: Performed By: #### U NEO, LIPID #### [facility] [address] [place] [address] Dr. James Crowley URIC ACID SERUMon 04-08-2023 Urate [Mass/Vol] 6.7 mg/dL Normal 3.5-7.2 [facility] Comment on above: Performed By: #### U NEO, LIPID #### [facility] [address] [place] [address] CHEST WO CONon [...] by: LEONOR MA Date: 2023-01-04 10:52 Normal [facility] CT CHEST WO CONon 10-07-2022 CT [...] by: LEONOR MA Date: 2022-10-07 16:05 Normal [facility] ACID FAST SMEAR AND CXon Acid Fast Culture Negative Normal [facility] Comment on above: Result Comment: No a tomi fast bacilli isolated after 6 weeks. Performed By: #### U NEO, LIPID #### [facility] [address] [address] [address] James Crowley Acid Fast Smear Negative Normal [facility] Comment on above: Performed By: #### U NEO, LIPID #### [facility] [address] [address] [address] James Crowley [employer] Specimen Processing Concentration Normal [facility] Comment on above: Performed By: #### U NEO, LIPID #### [facility] [address] [address] [address] James Crowley FUNGAL AB QUANTITAIVE DOUBLE IMMUNODIFFUon 08-22-2022 Aspergillus flavus Negative Normal Neg:<1:1 [facility] Comment on above: Performed By: #### F UNGUYI #### [facility] [address] [address] [address] James Crowley Aspergillus fumigatus Negative Normal Neg:<1:1 [facility] Comment on above: Performed By: #### F UNGUYI #### [facility] [address] [address] [address] James Crowley Aspergillus niger Negative Normal Neg:<1:1 [facility] Comment on above: Performed By: #### F UNGUYI #### [facility] [address] [address] [address] James Crowley Blastomyces Negative Normal Neg:<1:1 [facility] Comment on above: Performed By: #### F UNGUYI #### [facility] [address] [address] [address] James Crowley COXSACKIE B VIRUS ANTIBODIES on 08-21-2022 [place] B-1 Ab Negative Normal Neg:<1:8 [facility] Comment on above: Performed By: #### C OXSBV #### [facility] [address] [address] [address] James Crowley [place] B-2 Ab Negative Normal Neg:<1:8 [facility] Comment on above: Performed By: #### C OXSBV #### [facility] [address] [address] [address] James Crowley coxsackie B-3 Ab Negative Normal Neg:<1:8 [facility] Comment on above: Performed By: #### C OXSBV #### [facility] [address] [address] [address] James Crowley [place] B-4 Ab Negative Normal Neg:<1:8 [facility] Comment on above: Performed By: #### C OXSBV #### [facility] [address] [address] [address] James Crowley [place] B-5 Ab Negative Normal Neg:<1:8 [facility] Comment on above: Performed By: #### C OXSBV #### [facility] [address] [address] [address] James Crowley [place] B-6 Ab Negative Normal Neg:<1:8 [facility] Comment on above: Performed By: #### C OXSBV #### [facility] [address] [address] [address] James Crowley HISTOPLASMA CAP AB QUANT DID on 08-21-2022 Histoplasma Mycelial CF Ab. Negative Normal Neg:<1:2 [facility] Comment on above: Performed By: #### H ISTGAL #### [facility] [address] [place] [address] Dr. James Cleaningoplasma Yeast CF Ab Negative Normal Neg:<1:2 [facility] Comment on above: Performed By: #### H ISTGAL #### [facility] [address] [place] [address] Dr. James Crowley [place] A VIRUS AB IGMon 0 08-20-2022 [place] A16 IgM Negative Normal Neg:<1:10 [facility] Comment on above: Performed By: #### C OXSIGM #### [facility] [address] [place] [address] Dr. James Crowley [place] A24 IgM Negative Normal Neg:<1:10 [facility] Comment on above: Performed By: #### C OXSIGM #### [facility] [address] [place] [address] Dr. James Crowley [place] A7 IgM Negative Normal Neg:<1:10 [facility] Comment on above: Performed By: #### C OXSIGM #### [facility] [address] [place] [address] Dr. James Crowley [place] A9 IgM Negative Normal Neg:<1:10 [facility] Comment on above: Performed By: #### C OXSIGM #### [facility] [address] [place] [address] Dr. James Crowley HISTOPLASMA GALACTOMANNAN AG URINEon 08-20-2022 Histoplasma Gal'shwetha Ag <0.5 Normal <0.5 ng/mL [facility] Comment on above: Performed By: #### H ISTGAL #### [facility] [address] [place] [address] Dr. James Crowley QUANTIFERON TB GOLD PLUSon 0 08-20-2022 QuantiFERON Criteria Comment Normal [facility] Comment on above: Result Comment: Vick [...] NTTB #### [facility] [address] [place] [address] Dr. James Crowley QuantiFERON Incubation Incubation performed. Normal [facility] Comment on above: Performed By: #### Q NTTB #### [facility] [address] [place] [address] Dr. James Crowley QuantiFERON Mitogen Value >10.00 Normal [facility] Comment on above: Performed By: #### Q NTTB #### [facility] [address] [place] [address] Dr. James Crowley QuantiFERON Nil Value 0.04 IU/mL Normal [facility] Comment on above: Performed By: #### Q NTTB #### [facility] [address] [place] [address] Dr. James Crowley QuantiFERON TB1 Ag Value 0.04 IU/mL Normal [facility] Comment on above: Performed By: #### Q NTTB #### [facility] [address] [place] [address] Dr. James Crowley QuantiFERON TB2 Ag Value 0.05 IU/mL Normal [facility] Comment on above: Performed By: #### Q NTTB #### [facility] [address] [place] [address] Dr. James Crowley QuantiFERON-TB Gold Plus Negative Normal Negative [facility] Comment on above: Result Comment: No r esponse to M tuberculosis antigens detected. Infection with M tuberculosis is unlikely, but high risk individuals should be considered for additional testing (ATS/IDSA/CDC Clinical Practice Guidelines, 2017). The reference range is an Antigen minus Nil result of <0.35 IU/mL. Chemiluminescence immunoassay methodology Performed By: #### Q NTTB #### [facility] [address] [address] [address] James Crowley CREATININEon 08-18-2022 Creatinine [Mass/Vol] 0.97 mg/dL Normal 0.70-1.30 [facility] Comment on above: Performed By: #### H ISTGAL #### [facility] [address] [address] [address] James Crowley EGFR-AF ANGOLAN >60 Normal >=60 [facility] Comment on above: Performed By: #### H ISTGAL #### [facility] [address] [address] [address] James Crowley EGFR-NON AF ANGOLAN >60 Normal >=60 [facility] Comment on above: Performed By: #### H ISTGAL #### [facility] [address] [address] [address] CHEST W CONon [...] Haemophilus parainfluenzae Moderate growth of Normal [facility] Comment on above: Result Comment: Beta -Lactamase: Negative Performed By: #### H ISTGAL #### [facility] [address] [address] [address] James Crowley SPUTUM GRAM STAINon 08-18-20 22 COMMENTS Normal [facility] Comment on above: Performed By: #### H ISTGAL #### [facility] [address] [address] [address] James Crowley DIPHTHEROIDS Normal [facility] Comment on above: Performed By: #### H ISTGAL #### [facility] [address] [place] [address] Dr. James Crowley EPITHELIALS <25 Normal [facility] Comment on above: Performed By: #### H ISTGAL #### [facility] [address] [address] [address] James Crowley FUNGAL ELEMENTS Normal [facility] Comment on above: Performed By: #### H ISTGAL #### [facility] [address] [address] [address] James KAN NEG BACILLI Normal [facility] Comment on above: Performed By: #### H ISTGAL #### [facility] [address] [address] [address] James KAN NEG DIPPLOCOCCI FEW [facility] Comment on above: Performed By: #### H ISTGAL #### [facility] [address] [address] [address] James KAN POS BACILLI [facility] Comment on above: Performed By: #### H ISTGAL #### [facility] [address] [address] [address] James Crowley GRAM POSITIVE COCCI FEW Normal [facility] Comment on above: Performed By: #### H ISTGAL #### [facility] [address], [place] [address] Dr. James Crowley WBC (Bld) [#/Vol] 10*3/uL Normal [facility] Comment on above: Performed By: #### H ISTGAL #### [facility] [address], [place] [address] Dr. James Crowley XR RIBS RT PA [...] KO CISNEROS Date: 2022-08-12 13:02 Normal [facility] [...] for this test is supported by the [place] of Health and Human Service's declaration that [...] used). Performed By: #### C VDTBH #### [facility] [address] [place] [address] Dr. James Rey 03-24-2021 L - -------- Specimen: [id number] Received: 03/24/21 Status: [place] Dinah Num: [id number] Spec Type: Surgical Subm Dr: Bryan Quick MD Tissues: A Skin-Other than Cyst, tag, debridement or plastic repair (LT NASAL DORSUM) Procedures: HE Stain, Gross/Micro L4 -------- Patient Age/Sex Location Account Attending Physician -------- Mateo Stearns/Oj CÁRDENAS [id number] Bryan Quick MD -------- SPEC NUM: RECD: 03/24/21 STATUS: [place] MATHEWS NUM: [id number] FRANCISCA: 03/24/[address]: Bryan Quick MD ENTERED: 03/24/21 [facility] DR: SPEC TYPE: Surgical DEPT: S ORDERED: [...] microscopic findings support the above pathologic diagnosis. [id number] -------- -------- Specimen: Received: 03/24/21 Status: [place] Barnesalisa Num: [id number] Spec Type: Surgical Subm Dr: Bryan Quick MD Tissues: A Skin-Other than Cyst, tag, debridement or plastic repair (LT NASAL DORSUM) Procedures: HE Stain, Gross/Micro L4 -------- Patient: Mateo Stearns [id number] (Continued) -------- Signed (signature on file) Cindy Garcia MD 03/25/21 1824 [facility] Vital Signs Date Time Vital Sign Value Performing Clinician Facility 12-12-2024 09:53-0500 Body mass index (BMI) [Ratio] 22.69 kg/m2 MEI Dent MD Work Phone: [facility] 12-12-2024 09:53-0500 Body temperature 98.71 [degF] MEI Dent MD Work Phone: [facility] 12-12-2024 09:53-0500 Body weight 65.7 kg MEI Dent MD Work Phone: [facility] 12-12-2024 09:53-0500 Diastolic blood pressure 88 mm[Hg] MEI Dent MD Work Phone: [facility] 12-12-2024 09:53-0500 Heart rate 81 /min MEI Dent MD Work Phone: [facility] 12-12-2024 09:53-0500 Respiratory rate 18 /min MEI Dent MD Work Phone: [facility] 12-12-2024 09:53-0500 SaO2% (BldA) [Mass fraction] 90 % MEI Dent MD Work Phone: [facility] 12-12-2024 09:53-0500 Systolic blood pressure 131 mm[Hg] MEI Dent MD Work Phone: [facility] 11-02-2024 10:33-0500 Body temperature 98.4 [degF] MEI Dent MD Work Phone: [facility] 11-02-2024 10:33-0500 Diastolic blood pressure 82 mm[Hg] MEI Dent MD Work Phone: [facility] 11-02-2024 10:33-0500 Heart rate 100 /min MEI Dent MD Work Phone: [facility] 11-02-2024 10:33-0500 Respiratory rate 18 /min MEI Dent MD Work Phone: [facility] 11-02-2024 10:33-0500 SaO2% (BldA) [Mass fraction] 97 % MEI Dent MD Work Phone: [facility] 11-02-2024 10:33-0500 Systolic blood pressure 118 mm[Hg] MEI Dent MD Work Phone: [facility] 10-29-2024 10:28-0500 Body mass index (BMI) [Ratio] 23.38 kg/m2 MEI Dent MD Work Phone: [facility] 10-29-2024 10:28-0500 Body temperature 97.9 [degF] MEI Dent MD Work Phone: [facility] 10-29-2024 10:28-0500 Body weight 67.7 kg MEI Dent MD Work Phone: [facility] 10-29-2024 10:28-0500 Diastolic blood pressure 84 mm[Hg] MEI Dent MD Work Phone: [facility] 10-29-2024 10:28-0500 Heart rate 81 /min MEI Dent MD Work Phone: [facility] 10-29-2024 10:28-0500 Respiratory rate 18 /min MEI Dent MD Work Phone: [facility] 10-29-2024 10:28-0500 SaO2% (BldA) [Mass fraction] 95 % MEI Dent MD Work Phone: [facility] 10-29-2024 10:28-0500 Systolic blood pressure 126 mm[Hg] MEI Dent MD Work Phone: [facility] 10-22-2024 10:26-0500 Body mass index (BMI) [Ratio] 23.34 kg/m2 MEI Dent MD Work Phone: [facility] 10-22-2024 10:26-0500 Body temperature 97.11 [degF] MEI Dent MD Work Phone: [facility] 10-22-2024 10:26-0500 Body weight 67.6 kg MEI Dent MD Work Phone: [facility] 10-22-2024 10:26-0500 Diastolic blood pressure 81 mm[Hg] MEI Dent MD Work Phone: [facility] 10-22-2024 10:26-0500 Heart rate 71 /min MEI Dent MD Work Phone: [facility] 10-22-2024 10:26-0500 Respiratory rate 18 /min MEI Dent MD Work Phone: [facility] 10-22-2024 10:26-0500 SaO2% (BldA) [Mass fraction] 91 % MEI Dent MD Work Phone: [facility] 10-22-2024 10:26-0500 Systolic blood pressure 127 mm[Hg] MEI Dent MD Work Phone: [facility] 10-16-2024 10:59-0500 Body height 175.3 cm Kathie Sánchez NP Work Phone: [facility] 10-16-2024 10:59-0500 Body mass index (BMI) [Ratio] 22.21 kg/m2 Kathie Huntermaciel ASSISTANT PROFESSOR OF MARINE BIOLOGY Work Phone: [facility] 10-16-2024 10:59-0500 Body temperature 98.01 [degF] Kathie Villanuevacris ASSISTANT PROFESSOR OF MARINE BIOLOGY Work Phone: [facility] 10-16-2024 10:59-0500 Body weight 68.22 kg Kathie Huntermaciel ASSISTANT PROFESSOR OF MARINE BIOLOGY Work Phone: [facility] 10-16-2024 10:59-0500 Diastolic blood pressure 78 mm[Hg] Kathie Huntermaciel ASSISTANT PROFESSOR OF MARINE BIOLOGY Work Phone: [facility] 10-16-2024 10:59-0500 Heart rate 78 /min Kathie Villanuevacris ASSISTANT PROFESSOR OF MARINE BI[employer]Y Work Phone: [facility] 10-16-2024 10:59-0500 Respiratory rate 20 /min Kathie Huntermaciel ASSISTANT PROFESSOR OF MARINE BI[employer]Y Work Phone: [facility] 10-16-2024 10:59-0500 SaO2% (BldA) [Mass fraction] 92 % Kathie Huntermaciel ASSISTANT PROFESSOR OF MARINE BIOLOGY Work Phone: [facility] 10-16-2024 10:59-0500 Systolic blood pressure 110 mm[Hg] Kathie Villanuevacris ASSISTANT PROFESSOR OF MARINE BIOLOGY Work Phone: [facility] 10-15-2024 10:45-0500 Body mass index (BMI) [Ratio] 23.45 kg/m2 MEI Dent MD Work Phone: [facility] 10-15-2024 10:45-0500 Body temperature 97.81 [degF] MEI Dent MD Work Phone: [facility] 10-15-2024 10:45-0500 Body weight 67.9 kg MEI Dent MD Work Phone: [facility] 10-15-2024 10:45-0500 Diastolic blood pressure 81 mm[Hg] MEI Dent MD Work Phone: [facility] 10-15-2024 10:45-0500 Heart rate 87 /min MEI Dent MD Work Phone: [facility] 10-15-2024 10:45-0500 Respiratory rate 16 /min MEI Dent MD Work Phone: [facility] 10-15-2024 10:45-0500 SaO2% (BldA) [Mass fraction] 95 % MEI Dent MD Work Phone: [facility] 10-15-2024 10:45-0500 Systolic blood pressure 121 mm[Hg] MEI Dent MD Work Phone: [facility] 10-08-2024 10:34-0500 Body mass index (BMI) [Ratio] 23.69 kg/m2 MEI Dent MD Work Phone: [facility] 10-08-2024 10:34-0500 Body temperature 96.69 [degF] MEI Dent MD Work Phone: [facility] 10-08-2024 10:34-0500 Body weight 68.6 kg MEI Dent MD Work Phone: [facility] 10-08-2024 10:34-0500 Diastolic blood pressure 76 mm[Hg] MEI Dent MD Work Phone: [facility] 10-08-2024 10:34-0500 Heart rate 103 /min MEI Dent MD Work Phone: [facility] 10-08-2024 10:34-0500 Respiratory rate 18 /min MEI Dent MD Work Phone: [facility] 10-08-2024 10:34-0500 SaO2% (BldA) [Mass fraction] 90 % MEI Dent MD Work Phone: [facility] 10-08-2024 10:34-0500 Systolic blood pressure 165 mm[Hg] MEI Dent MD Work Phone: [facility] 10-01-2024 10:42-0500 Body mass index (BMI) [Ratio] 23.34 kg/m2 MEI Dent MD Work Phone: [facility] 10-01-2024 10:42-0500 Body temperature 97.9 [degF] MEI Dent MD Work Phone: [facility] 10-01-2024 10:42-0500 Body weight 67.6 kg MEI Dent MD Work Phone: [facility] 10-01-2024 10:42-0500 Diastolic blood pressure 83 mm[Hg] MEI Dent MD Work Phone: [facility] 10-01-2024 10:42-0500 Heart rate 99 /min MEI Dent MD Work Phone: [facility] 10-01-2024 10:42-0500 Respiratory rate 18 /min MEI Dent MD Work Phone: [facility] 10-01-2024 10:42-0500 SaO2% (BldA) [Mass fraction] 87 % MEI Dent MD Work Phone: [facility] Comment on above: Wearing mask, Normal for him with mask o n 10-01-2024 10:42-0500 Systolic blood pressure 129 mm[Hg] MEI Dent MD Work Phone: [facility] 09-25-2024 14:15-0400 Body mass index (BMI) [Ratio] 23.17 kg/m2 MEI Dent MD Work Phone: [facility] 09-25-2024 14:15-0400 Body weight 67.1 kg MEI Dent MD Work Phone: [facility] 09-13-2024 10:27-0400 Body height 175.3 cm Kathie Sánchez NP Work Phone: [facility] 09-13-2024 10:27-0400 Body mass index (BMI) [Ratio] 21.8 kg/m2 Kathie Sánchez ASSISTANT PROFESSOR OF MARINE BIOLOGY Work Phone: [facility] 09-13-2024 10:27-0400 Body temperature 98.4 [degF] Kathie Sánchez ASSISTANT PROFESSOR OF MARINE BIOLOGY Work Phone: [facility] 09-13-2024 10:27-0400 Body weight 66.95 kg Kathie Sánchez ASSISTANT PROFESSOR OF MARINE BI[employer]Y Work Phone: [facility] 09-13-2024 10:27-0400 Heart rate 96 /min Kathie Sánchez ASSISTANT PROFESSOR OF MARINE BI[employer]Y Work Phone: [facility] 09-13-2024 10:27-0400 Respiratory rate 10 /min Kathie Minayaelder ASSISTANT PROFESSOR OF MARINE BI[employer]Y Work Phone: [facility] 09-13-2024 10:27-0400 SaO2% (BldA) [Mass fraction] 97 % Kathie Minayaelder ASSISTANT PROFESSOR OF MARINE [employer]Y Work Phone: [facility] 09-11-2024 13:33-0400 Body mass index (BMI) [Ratio] 23.51 kg/m2 MEI Dent MD Work Phone: [facility] 09-11-2024 13:33-0400 Body temperature 97.81 [degF] MEI Dent MD Work Phone: [facility] 09-11-2024 13:33-0400 Body weight 68.1 kg MEI Dent MD Work Phone: [facility] 09-11-2024 13:33-0400 Diastolic blood pressure 82 mm[Hg] MEI Dent MD Work Phone: [facility] 09-11-2024 13:33-0400 Heart rate 80 /min MEI Dent MD Work Phone: [facility] 09-11-2024 13:33-0400 Respiratory rate 18 /min MEI Dent MD Work Phone: [facility] 09-11-2024 13:33-0400 SaO2% (BldA) [Mass fraction] 94 % MEI Dent MD Work Phone: [facility] 09-11-2024 13:33-0400 Systolic blood pressure 146 mm[Hg] MEI Dent MD Work Phone: [facility] 07-12-2024 13:06-0400 Body mass index (BMI) [Ratio] 23.41 kg/m2 MEI Dent MD Work Phone: [facility] 07-12-2024 13:06-0400 Body temperature 98.1 [degF] MEI Dent MD Work Phone: [facility] 07-12-2024 13:06-0400 Body weight 67.8 kg MEI Dent MD Work Phone: [facility] 07-12-2024 13:06-0400 Diastolic blood pressure 83 mm[Hg] MEI Dent MD Work Phone: [facility] 07-12-2024 13:06-0400 Heart rate 95 /min MEI Dent MD Work Phone: [facility] 07-12-2024 13:06-0400 Respiratory rate 18 /min MEI Dent MD Work Phone: [facility] 07-12-2024 13:06-0400 SaO2% (BldA) [Mass fraction] 95 % MEI Dent MD Work Phone: [facility] 07-12-2024 13:06-0400 Systolic blood pressure 157 mm[Hg] MEI Dent MD Work Phone: [facility] 06-21-2024 13:13-0400 Body height 170.2 cm MEI Dent MD Work Phone: [facility] 06-21-2024 13:13-0400 Body mass index (BMI) [Ratio] 23.41 kg/m2 MEI Dent MD Work Phone: [facility] 06-21-2024 13:13-0400 Body temperature 97.5 [degF] MEI Dent MD Work Phone: [facility] 06-21-2024 13:13-0400 Body weight 67.8 kg NA Manolo CHANDLER Work Phone: [facility] 06-21-2024 13:13-0400 Diastolic blood pressure 75 mm[Hg] MEI Dent MD Work Phone: [facility] 06-21-2024 13:13-0400 Heart rate 86 /min MEI Dent MD Work Phone: [facility] 06-21-2024 13:13-0400 Respiratory rate 20 /min MEI Dent MD Work Phone: [facility] 06-21-2024 13:13-0400 SaO2% (BldA) [Mass fraction] 95 % MEI Dent MD Work Phone: [facility] 06-21-2024 13:13-0400 Systolic blood pressure 124 mm[Hg] MEI Dent MD Work Phone: [facility] 06-01-2024 13:13-0400 Body height 175.3 cm Amandeep Crisostomo MD Work Phone: [facility] 06-01-2024 13:13-0400 Body mass index (BMI) [Ratio] 22.14 kg/m2 Amandeep Crisostomo MD Work Phone: [facility] 06-01-2024 13:13-0400 Body weight 68 kg Amandeep Crisostomo MD Work Phone: [facility] 06-01-2024 13:13-0400 Diastolic blood pressure 81 mm[Hg] Amandeep Crisostomo MD Work Phone: [facility] 06-01-2024 13:13-0400 Heart rate 88 /min Amandeep Crisostomo MD Work Phone: [facility] 06-01-2024 13:13-0400 Systolic blood pressure 138 mm[Hg] Amandeep Crisostomo MD Work Phone: [facility] 05-21-2024 11:35-0400 Blood Pressure Location Rufina VORA [facility] 05-21-2024 11:35-0400 Body temperature 98.6 [degF] Rufina VORA [facility] 05-21-2024 11:35-0400 Diastolic blood pressure 84 mm[Hg] Rufina VORA [facility] 05-21-2024 11:35-0400 Heart rate 76 /min Rufina VORA [facility] 05-21-2024 11:35-0400 Respiratory rate 16 /min Rufina VORA [facility] 05-21-2024 11:35-0400 Systolic blood pressure 139 mm[Hg] Rufina VORA [facility] 06-06-2023 10:36-0400 Blood Pressure Location Rufina VORA [facility] 06-06-2023 10:36-0400 Diastolic blood pressure 76 mm[Hg] Rufina VORA [facility] 06-06-2023 10:36-0400 Heart rate 72 /min Rufina VORA [facility] 06-06-2023 10:36-0400 Respiratory rate 16 /min Rufina VORA [facility] 06-06-2023 10:36-0400 Systolic blood pressure 130 mm[Hg] Rufina VORA [facility] 02-07-2023 12:42-0400 Blood Pressure Location Rufina VORA [facility] 02-07-2023 12:42-0400 Diastolic blood pressure 77 mm[Hg] Rufina VORA [facility] 02-07-2023 12:42-0400 Heart rate 74 /min Rufina VORA [facility] 02-07-2023 12:42-0400 Systolic blood pressure 138 mm[Hg] Rufian VORA [facility] 05-17-2022 12:56-0400 Blood Pressure Location Rufinamichelle VORA [facility] 05-17-2022 12:56-0400 Diastolic blood pressure 87 mm[Hg] Rufina VORA [facility] 05-17-2022 12:56-0400 Heart rate 79 /min Rufinamichelle VORA [facility] 05-17-2022 12:56-0400 Respiratory rate 16 /min Rufina VORA [facility] 05-17-2022 12:56-0400 Systolic blood pressure 139 mm[Hg] Rufina VORA [facility] Encounters Encounter Date Encounter Type Care Provider Facility Start: 02-22-2025 End: 02-22-2025 Telephone encounter Kathie Sánchez ASSISTANT PROFESSOR OF [employer] Work Phone: [facility] Comment on above: Nausea (Primary Dx) Start: 02-11-2025 End: 02-11-2025 Clinisync Result Encounter Generic External Data Provider [facility] External Department Unsolicited Start: 02-11-2025 End: 02-11-2025 Clinisync Result Encounter Generic External Data Provider [facility] External Department Unsolicited Start: 01-18-2025 End: 01-18-2025 ambulatory Rufina VORA Facility:[facility] Start: 01-18-2025 End: 01-18-2025 Patient encounter procedure Rufina VORA [facility] Start: 01-11-2025 End: 01-11-2025 ambulatory Rufina VORA Facility:[facility] Start: 01-11-2025 End: 01-11-2025 Patient encounter procedure Rufina VORA [facility] Start: 01-02-2025 End: 01-02-2025 Bamboo flowsheet Karen Valdovinos DO Work Phone: [facility] Start: 01-02-2025 End: 01-02-2025 Bamboo flowsheet Karen Valdovinos DO Work Phone: [facility] Start: 01-02-2025 End: 01-02-2025 ambulatory KAREN VALDOVINOS Not Available Start: 12-12-2024 End: 12-12-2024 ambulatory Severo DENT Facility:[facility] Start: 12-12-2024 End: 12-12-2024 Patient encounter procedure Severo Dent MD Work Phone: [facility] Comment on above: Malignant neoplasm o f prostate (HCC) (Primary Dx) Start: 12-05-2024 End: 12-05-2024 Clinisync Result Encounter Generic External Data Provider [facility] External Department Unsolicited Start: 12-05-2024 End: 12-05-2024 Clinisync Result Encounter Generic External Data Provider [facility] External Department Unsolicited Start: 11-26-2024 End: 11-26-2024 Social Work [facility] Hematology/Oncology Start: 11-02-2024 End: 11-09-2024 Radiation Oncology Note Severo Dent MD Work Phone: [facility] Comment on above: Completion Note Start: 11-02-2024 End: 11-09-2024 Patient encounter procedure Severo Dent MD Work Phone: [facility] Comment on above: Malignant neoplasm o f prostate (HCC) (Primary Dx) Start: 11-02-2024 End: 11-02-2024 ambulatory Sveero DENT Facility:[facility] Start: 11-01-2024 End: 11-01-2024 ambulatory Severo DENT Facility:[facility] Start: 10-31-2024 End: 10-31-2024 ambulatory Severo DENT Facility:[facility] Start: 10-30-2024 End: 10-30-2024 ambulatory Severo DENT Facility:[facility] Start: 10-29-2024 End: 10-29-2024 Patient encounter procedure Severo Dent MD Work Phone: [facility] Comment on above: Malignant neoplasm o f prostate (HCC) (Primary Dx) Start: 10-29-2024 End: 10-29-2024 ambulatory Severo DENT Facility:[facility] Start: 10-26-2024 End: 10-26-2024 Social Work [facility] Hematology/Oncology Start: 10-24-2024 End: 10-24-2024 ambulatory Severo DENT Facility:[facility] Start: 10-23-2024 End: 10-23-2024 ambulatory Severo DENT Facility:[facility] Start: 10-22-2024 End: 10-22-2024 Patient encounter procedure Severo Dent MD Work Phone: [facility] Comment on above: Malignant neoplasm o f prostate (HCC) (Primary Dx) Start: 10-22-2024 End: 10-22-2024 ambulatory Severo DENT Facility:[facility] Start: 10-21-2024 End: 10-21-2024 ambulatory Severo DENT Facility:[facility] Start: 10-19-2024 End: 10-19-2024 ambulatory Severo DENT Facility:[facility] Start: 10-18-2024 End: 10-18-2024 ambulatory Severo DENT Facility:[facility] Start: 10-17-2024 End: 10-17-2024 ambulatory Severo DENT Facility:[facility] Start: 10-16-2024 End: 10-16-2024 Bamboo flowsheet Kathie Sánchez ASSISTANT PROFESSOR OF [employer]Y Work Phone: [facility] Start: 10-16-2024 End: 10-16-2024 Bamboo flowsheet Kathie Sánchez ASSISTANT PROFESSOR OF [employer]INE [employer] Work Phone: [facility] Start: 10-16-2024 End: 10-16-2024 Office outpatient visit 15 minutes Kathie Sánchez NP Work Phone: [facility] Comment on above: DDD (degenerative di sc disease), cervical (Primary Dx); Atrial fibrillation (CMS/HCC); Gastro-esophageal reflux disease without esophagitis; Prostate cancer (CMS/HCC) Start: 10-16-2024 End: 10-16-2024 ambulatory Severo DENT Facility:[facility] Start: 10-15-2024 End: 10-15-2024 Patient encounter procedure Severo Dent MD Work Phone: [facility] Comment on above: Malignant neoplasm o f prostate (HCC) (Primary Dx) Start: 10-15-2024 End: 10-15-2024 ambulatory Severo DENT Facility:[facility] Start: 10-12-2024 End: 10-12-2024 ambulatory Severo DENT Facility:[facility] Start: 10-11-2024 End: 10-11-2024 Clinisync Result Encounter Generic External Data Provider [facility] External Department Unsolicited Start: 10-11-2024 End: 10-11-2024 Clinisync Result Encounter Generic External Data Provider [facility] External Department Unsolicited Start: 10-11-2024 End: 10-11-2024 Patient encounter procedure Lab/Jacky Perez Work Phone: [facility] Comment on above: Malignant neoplasm o f prostate (HCC) Start: 10-11-2024 End: 10-11-2024 ambulatory Severo GOPAL DENT Facility:[facility] Start: 10-10-2024 End: 10-10-2024 ambulatory Severo DENT Facility:[facility] Start: 10-09-2024 End: 10-09-2024 ambulatory Severo GOPAL DENT Facility:[facility] Start: 10-08-2024 End: 10-08-2024 Patient encounter procedure Severo Dent MD Work Phone: [facility] Comment on above: Malignant neoplasm o f prostate (HCC) (Primary Dx) Start: 10-08-2024 End: 10-08-2024 ambulatory Severo GOPAL DENT Facility:[facility] Start: 10-05-2024 End: 10-05-2024 ambulatory Severo GOPAL DENT Facility:[facility] Start: 10-04-2024 End: 10-05-2024 ambulatory KATHIE SÁNCHEZ Facility:[facility] Start: 10-04-2024 End: 10-04-2024 Patient encounter procedure Lab/[place] [facility] Perez Work Phone: [facility] Comment on above: Malignant neoplasm o f prostate (HCC) Start: 10-04-2024 End: 10-04-2024 Clinisync Result Encounter Generic External Data Provider [facility] External Department Unsolicited Start: 10-04-2024 End: 10-04-2024 Clinisync Result Encounter Generic External Data Provider [facility] External Department Unsolicited Start: 10-03-2024 End: 10-03-2024 ambulatory Severo DENT Facility:[facility] Start: 10-02-2024 End: 10-02-2024 ambulatory Severo DENT Facility:[facility] Start: 10-01-2024 End: 10-01-2024 Patient encounter procedure Severo Dent MD Work Phone: [facility] Comment on above: Malignant neoplasm o f prostate (HCC) (Primary Dx) Start: 10-01-2024 End: 10-01-2024 ambulatory Severo DENT Facility:[facility] Start: 09-28-2024 End: 09-28-2024 ambulatory Severo DENT Facility:[facility] Start: 09-27-2024 End: 09-27-2024 ambulatory Severo DENT Facility:[facility] Start: 09-26-2024 End: 09-26-2024 ambulatory Severo DENT Facility:[facility] Start: 09-25-2024 End: 09-25-2024 Social Work Umu Nicolas [facility] Hematology/Oncology Comment on above: Malignant neoplasm o f prostate (HCC) (Primary Dx) Start: 09-24-2024 End: 09-24-2024 Telephone encounter Severo Dent MD Work Phone: Radiation Oncology Comment on above: Orders (CBC ) Start: 09-18-2024 End: 09-18-2024 Social Work Umu Nicolas [facility] Hematology/Oncology Start: 09-17-2024 End: 09-27-2024 Radiation Oncology Note Severo Dent MD Work Phone: Radiation Oncology Comment on above: Simulation Note Treatment Planning Start: 09-17-2024 End: 09-18-2024 ambulatory Severo DENT Facility:[facility] Start: 09-17-2024 End: 09-27-2024 Patient encounter procedure Severo Dent MD Work Phone: Radiation Oncology Comment on above: Malignant neoplasm o f prostate (HCC) (Primary Dx) Start: 09-14-2024 End: 09-14-2024 Telephone encounter Severo Dent MD Work Phone: Radiation Oncology Comment on above: Financial Questions Start: 09-13-2024 End: 09-13-2024 Bamboo flowsheet Kathie Sánchez ASSISTANT PROFESSOR OF MARINE BIOLOGY Work Phone: [facility] Start: 09-13-2024 End: 09-13-2024 Bamboo flowsheet Kathie Sánchez ASSISTANT PROFESSOR OF MARINE BIOLOGY Work Phone: [facility] Start: 09-13-2024 End: 09-13-2024 Office outpatient visit 15 minutes Kathie Princess BENNETT Work Phone: [facility] Comment on above: [...] Start: 07-12-2024 End: 07-12-2024 ambulatory Severo DENT Facility:[facility] Start: 07-12-2024 End: 07-12-2024 Patient encounter procedure Severo Dent MD Work Phone: Radiation Oncology Comment on above: Malignant neoplasm o f prostate (HCC) (Primary Dx) Start: 06-21-2024 End: 06-21-2024 ambulatory RUFINA VORA Facility:[facility] Start: 06-21-2024 End: 06-21-2024 Patient encounter procedure [...] encounter procedure Rufina VORA [facility] Start: 05-01-2024 End: 05-01-2024 ambulatory Rufina VORA Facility:[facility] Start: 05-01-2024 End: 05-01-2024 Patient encounter procedure Rufina VORA [facility] Start: 02-28-2024 Patient encounter procedure Generic Provider [facility] Start: 02-28-2024 End: 02-28-2024 ambulatory KATHIE SÁNCHEZ Not Available Start: 01-05-2024 Clinisync Result Encounter Generic External Data Provider [facility] Unsolicited Start: 01-05-2024 Clinisync Result Encounter Generic External Data Provider [facility] External Department Unsolicited Start: 01-02-2024 End: 01-02-2024 ambulatory Rufina VORA Facility:[facility] Start: 07-22-2023 ambulatory Rufina VORA Facili ty:[facility] Start: 06-06-2023 End: 06-06-2023 ambulatory Rufina VORA Facility:[facility] Start: 06-06-2023 End: 06-06-2023 Patient encounter procedure Rufina VORA [facility] Start: 05-17-2023 End: 05-17-2023 Patient encounter procedure Rufina VORA [facility] Start: 04-12-2023 End: 04-13-2023 ambulatory NUCLEAR REACTOR OPERATOR KATHIE SÁNCHEZ Facility:[facility] Start: 04-08-2023 End: 04-09-2023 ambulatory PROMISE SÁNCHEZ Facility:[facility] Start: 02-07-2023 End: 02-07-2023 Patient encounter procedure Rufina VORA [facility] Start: 01-04-2023 End: 01-05-2023 ambulatory PROMISE SÁNCHEZ Facility:[facility] Start: 10-07-2022 End: 10-08-2022 ambulatory NUCLEAR REACTOR OPERATOR KATHIE SÁNCHEZ Facility:[facility] Start: 08-18-2022 End: 08-19-2022 ambulatory ROBERTO JOSELYN . Facility:[facility] Start: 08-12-2022 End: 08-12-[address] ELSA RAE . Facility:[facility] Start: 07-20-2022 End: 08-11-2022 Pre-admission assessment Rufina VORA [facility] Start: 05-17-2022 End: 06-16-2022 Pre-admission assessment Rufina VORA [facility] Start: 05-17-2022 End: 05-17-2022 Patient encounter procedure Rufina VORA [facility] Start: 05-03-2022 End: 05-03-2022 ambulatory ROBERTO ALVES . Facility:[facility] Start: 03-24-2021 End: 03-24-2021 Departed Referred Bryan Abdelrahman Work Phone: [facility] [place] Procedures Date Procedure Procedure Detail Performing Clinician Start: 02-11-2025 Radex hip unilateral with pelvis 2-3 views Generic External Data Provider Start: 01-02-2025 Oph bmtry prtl coher intrfrmtry io lens pwr erna Valdovinos DO Work Phone: Start: 01-02-2025 End: 01-02-2025 [facility] medical xm&eval compre new pt [...] above: Performed By: #### [facility] #### [facility] [address] [place] [address] Dr. James Crowley Start: 10-19-2022 Colonoscopy Generic Pr ovider Colonoscopy Rufina VORA Procedure on foot Rufina LEON Repair of hip Rufina VORA Comment on above: Both hips Both hips Transrectal needle biopsy of prostate Rufina VORA Plan of Treatment Date Care Activity Detail Author Start: 10-19-2032 Screening for malign ant neoplasm of colon [facility] Start: 03-11-2031 Urine microalbumin profile DTaP,Tdap,Td Vaccine (2 - Td or Tdap) [facility] Start: 12-05-2029 Prostate specific antigen measurement Prostate Cancer Screening Discussion [facility] Start: 09-07-2029 Prostate specific antigen measurement Prostate Cancer Screening Discussion [facility] Start: 06-12-2025 End: 06-12-2025 ambulatory 06/12/2025 11:00 AM EDT Visit (SP) Office Hematology/Oncology [address] [place] [address] Cat Baker APRN.NUCLEAR REACTOR OPERATOR [address] [place] [address] survivorship Hematology/Oncology Comment on above: survivorship Start: 06-12-2025 End: 06-12-2025 Patient encounter procedure 06/12/2025 10:30 AM EDT Office Visit Radiation Oncology [address] [address] Severo Dent MD [address] [place] [address] 6 month Follow up Radiation Oncology Comment on above: 6 month Follow up Start: 06-11-2025 End: 09-10-2025 Prostate specific Ag [Mass/volume] in Serum or Plasma PROSTATE-SPECIFIC ANTIGEN DIAGNOSTIC Lab Routine Malignant neoplasm of prostate (HCC) Expected: 06/11/2025 (Approximate), Expires: 09/10/2025 [facility] Work Phone: Comment on above: Expected: 06/11/2025 (Approximate), Expires: 09/10/2025 Start: 02-27-2025 Medicare Annual Well ness (AWV) Medicare Annual Wellness (AWV) [facility] Start: 02-27-2025 Pneumococcal Vaccine : 65+ Years (1 of 2 - PCV) Pneumococcal Vaccine: 65+ Years (1 of 2 - PCV) [facility] Comment on above: Postponed from 07/21 (Patient Refused) Start: 02-25-2025 End: 02-25-2025 Patient encounter procedure 02/25/2025 10:00 AM EDT Office Visit [facility] [address] [place] [address] Ratna Craven, ASSISTANT PROFESSOR OF MARINE BIOLOGY [address] [place] [address] [facility] Start: 01-08-2025 End: 01-08-2025 Patient encounter procedure 01/08/2025 9:00 AM EST Office Visit [facility] [address] [place] [address] Kathie Sánchez, DONALD [address] [place] [phone] [facility] Start: 01-02-2025 End: 01-02-2025 Patient encounter procedure [facility] Comment on above: Arrived Start: 12-17-2024 End: 12-17-2024 Patient encounter procedure 12/17/2024 9:40 AM EST Office Visit [facility] [address] [place] [address] Kathie Sánchez, ASSISTANT PROFESSOR OF MARINE BIOLOGY [address] [place] [phone] [facility] Start: 12-12-2024 End: 12-12-2024 Patient encounter procedure 12/12/2024 10:00 AM EST Office Visit Radiation Oncology [address] [place] [address] [place] [address] Severo Dent MD [address] [place] [address] 3-4 week follow up Radiation Oncology Comment on above: 3-4 week follow up Start: 11-30-2024 End: 11-30-2024 Patient encounter procedure Radiation Oncology Comment on above: 3-4 week follow up Start: 11-28-2024 Advance Directive Discussion Advance Directive Discussion [facility] Start: 11-27-2024 End: 02-26-2025 Prostate specific Ag [Mass/volume] in Serum or Plasma PROSTATE-SPECIFIC ANTIGEN DIAGNOSTIC Lab Routine Malignant neoplasm of prostate (HCC) Expected: 11/27/2024, Expires: 02/26/2025 [facility] Work Phone: Comment on above: Expected: 11/27/2024 , Expires: 02/26/2025 Start: 11-23-2024 End: 11-23-2024 Patient encounter procedure 11/23/2024 10:00 AM EST Office Visit [facility] [address] [place] [address] labs [facility] Comment on above: labs Start: 11-02-2024 End: 11-02-2024 Patient encounter procedure 11/02/2024 10:15 AM EST Appointment Radiation Oncology [address] [place] [address] Prostate Radiation Oncology Comment on above: Prostate Start: 11-01-2024 End: 11-01-2024 Patient encounter procedure Radiation Oncology Comment on above: Prostate FINAL OTV Fx Start: 10-31-2024 End: 10-31-2024 Patient encounter procedure 10/31/2024 10:15 AM EST Appointment Radiation Oncology [address] [place] [address] Prostate Radiation Oncology Comment on above: Prostate Start: 10-30-2024 End: 10-30-2024 Patient encounter procedure 10/30/2024 10:15 AM EST Appointment Radiation Oncology [address] [place] [address] Prostate Radiation Oncology Comment on above: Prostate Start: 10-29-2024 End: 10-29-2024 Patient encounter procedure Radiation Oncology Comment on above: Prostate Location: [facility] Start: 10-24-2024 End: 10-24-2024 Patient encounter procedure 10/24/2024 10:15 AM EST Appointment Radiation Oncology [address] [place] [address] Prostate Radiation Oncology Comment on above: Prostate Start: 10-23-2024 End: 10-23-2024 Patient encounter procedure 10/23/2024 10:15 AM EST Appointment Radiation Oncology [address] [place] [address] Prostate Radiation Oncology Comment on above: Prostate Start: 10-22-2024 End: 10-22-2024 Patient encounter procedure Radiation Oncology Comment on above: Prostate Location: [facility] Start: 10-21-2024 End: 10-21-2024 Patient encounter procedure 10/21/2024 10:15 AM EST Appointment Radiation Oncology [address] [place] [address] Prostate Radiation Oncology Comment on above: Prostate Start: 10-19-2024 End: 10-19-2024 Patient encounter procedure 10/19/2024 10:15 AM EST Appointment Radiation Oncology [address] [place] [address] Prostate Radiation Oncology Comment on above: Prostate Start: 10-18-2024 End: 10-18-2024 Patient encounter procedure 10/18/2024 10:15 AM EST Appointment Radiation Oncology [address] [place] [address] Prostate Radiation Oncology Comment on above: Prostate Start: 10-17-2024 End: 10-17-2024 Patient encounter procedure 10/17/2024 10:15 AM EST Appointment Radiation Oncology [address] [place] [address] Prostate Radiation Oncology Comment on above: Prostate [...] 10:15 AM EST Appointment Radiation Oncology [address] [place] [address] Prostate Radiation Oncology Comment on above: Prostate Start: 10-11-2024 End: 01-10-2025 CBC W Auto Differential panel - Blood COMPLETE BLOOD COUNT AND DIFFERENTIAL Lab Routine Malignant neoplasm of prostate (HCC) Expected: 10/11/2024, Expires: 01/10/2025 [facility] Work Phone: Comment on above: Expected: 10/11/2024 , Expires: 01/10/2025 Start: 10-11-2024 End: 10-11-2024 Patient encounter procedure 10/11/2024 10:30 AM EST Appointment Radiation Oncology [address] [place] [address] Prostate Radiation Oncology Comment on above: Prostate Start: 10-10-2024 End: 10-10-2024 Patient encounter procedure 10/10/2024 10:30 AM EST Appointment Radiation Oncology [address] [place] [address] Prostate Radiation Oncology Comment on above: Prostate Start: 10-09-2024 End: 10-09-2024 Patient encounter procedure 10/09/2024 10:30 AM EST Appointment Radiation Oncology [address] [place] [address] Prostate Radiation Oncology Comment on above: Prostate Start: 10-08-2024 End: 10-08-2024 Patient encounter procedure Radiation Oncology Comment on above: Prostate Location: [facility] Start: 10-05-2024 End: 10-05-2024 Patient encounter procedure 10/05/2024 10:15 AM EST Appointment Radiation Oncology [address] [place] [address] Prostate Radiation Oncology Comment on above: Prostate Start: 10-04-2024 End: 10-04-2024 Patient encounter procedure 10/04/2024 2:15 PM EST Appointment Radiation Oncology [address] [place] [address] Prostate - appt in [place] before Radiation Oncology Comment on above: Prostate - appt in [place] before Start: 10-04-2024 End: 01-03-2025 CBC W Auto Differential panel - Blood COMPLETE BLOOD COUNT AND DIFFERENTIAL Lab Routine Malignant neoplasm of prostate (HCC) Expected: 10/04/2024, Expires: 01/03/2025 [facility] Work Phone: Comment on above: Expected: 10/04/2024 , Expires: 01/03/2025 Start: 10-04-2024 End: 10-04-2024 Patient encounter procedure 10/04/2024 10:15 AM EST Appointment Radiation Oncology [address] [place] [address] Prostate Radiation Oncology Comment on above: Prostate Start: 10-03-2024 End: 10-03-2024 Patient encounter procedure 10/03/2024 10:15 AM EST Appointment Radiation Oncology [address] [place] [address] Prostate Radiation Oncology Comment on above: Prostate Start: 10-02-2024 End: 10-02-2024 Patient encounter procedure 10/02/2024 10:15 AM EST Appointment Radiation Oncology [address] [place] [address] Prostate Radiation Oncology Comment on above: Prostate Start: 10-01-2024 End: 10-01-2024 Patient encounter procedure Radiation Oncology Comment on above: Prostate Location: [facility] Start: 09-28-2024 End: 09-28-2024 Patient encounter procedure 09/28/2024 2:45 PM EDT Appointment Radiation Oncology [address] [place] [address] Prostate Radiation Oncology Comment on above: Prostate Start: 09-27-2024 End: 09-27-2024 Patient encounter procedure 09/27/2024 2:45 PM EDT Appointment Radiation Oncology [address] [place] [address] Prostate Radiation Oncology Comment on above: Prostate Start: 09-26-2024 End: 09-26-2024 Patient encounter procedure 09/26/2024 11:30 AM EDT Appointment Radiation Oncology [address] [place] [address] Prostate Radiation Oncology Comment on above: Prostate Start: 09-25-2024 End: 09-25-2024 Patient encounter procedure Radiation Oncology Comment on above: NEW START PROSTATE Prostate - would lik e :10:45 Start: 09-21-2024 End: 12-21-2024 Prostate specific Ag [Mass/volume] in Serum or Plasma PROSTATE-SPECIFIC ANTIGEN DIAGNOSTIC Lab Routine Malignant neoplasm of prostate (HCC) Expected: 09/21/2024, Expires: 12/21/2024 [facility] Work Phone: Comment on above: Expected: 09/21/2024 , Expires: 12/21/2024 Start: 09-18-2024 End: 09-18-2024 Patient encounter procedure 09/18/2024 9:00 AM EDT Office Visit Financial Clearance Phone Screening [facility]95 Financial Questions for upcoming treatments Financial Clearance [...] disease), cervical Expected: 09/13/2024 (Approximate), Ex[facility]: [facility] Work Phone: Comment on above: Expected: 09/13/2024 (Approximate), Expires: 09/13/2025 Start: 09-13-2024 End: 09-13-2024 [facility] Comment on above: Other thrombophilia (CMS/HCC); Chronic respiratory failure with hypoxia (CMS/HCC); Abdominal aortic aneurysm, without rupture, unspecified (CMS/HCC); Thoracic aortic aneurysm, without rupture, unspecified (CMS/HCC); Atherosclerosis of aorta (CMS/HCC) Start: 09-11-2024 End: 09-11-2024 Patient encounter procedure 09/11/2024 1:45 PM EDT Office Visit Radiation Oncology [address] [facility] [place] [address] Severo Dent MD [address] [place] [address] 2 month rv Radiation Oncology Comment on above: 2 month rv Start: 07-29-2024 Covid-19 Vaccine ( season) Covid-19 Vaccine () [facility] Start: 07-29-2024 Influenza vaccination Influenza Vacc ine (#1) [facility] Start: 07-12-2024 End: 07-12-2024 Patient encounter procedure 07/12/2024 1:15 PM EDT Office Visit Radiation Oncology [address] [place] [address] Severo Dent MD [address] [place] [address] 3 week rv-Decipher results Radiation Oncology Comment on above: 3 week rv-Decipher r esults Start: 06-01-2024 End: 08-31-2024 Prostate specific Ag [Mass/volume] in Serum or Plasma PROSTATE-SPECIFIC ANTIGEN DIAGNOSTIC Lab Routine Prostate cancer (HCC) Expected: 06/01/2024, Expires: 08/31/2024 [facility] Work Phone: Comment on above: Expected: 06/01/2024 , Expires: 08/31/2024 Start: 11-28-2023 Advance Directive Discussion Advance Directive Discussion [facility] Start: 11-28-2023 Behavioral Health Screening Behavioral Health Screening [facility] Start: 07-29-2023 Covid-19 Vaccine ( season) Covid-19 Vaccine () [facility] Start: 07-29-2023 Influenza vaccination Influenza Vacc ine (#1) [facility] Start: 2023 Pneumococcal Vaccine : 65+ Years (1 - PCV) Pneumococcal Vaccine: 65+ Years (1 - PCV) [facility] Start: 2018 RSV Vaccine (1 - 1-d ose 60+ series) RSV Vaccine (1 - 1-dose 60+ series) [facility] Start: 2013 Prostate specific antigen measurement Prostate Cancer Screening Discussion [facility] Start: 2008 Screening for malign ant neoplasm of lung Lung Cancer Screening [facility] Start: 2003 Diabetes Screening Diabetes Screenin g [facility] Start: 2003 Screening for malign ant neoplasm of colon [facility] Start: 1993 Lipid panel Lipid Screening [facility] Start: 1988 Zoledronic acid therapy Alpha- 1 Antitrypsin Deficiency Screening [facility] Start: 1976 Annual PCP Team [place] Disease Visit Annual PCP Team Chronic Disease Visit [facility] Start: 1976 Anxiety Screening Anxiety Screening [facility] Start: 1976 Depression Screening Depression Scre ening [facility] Start: 1976 Hepatitis C screening Hepatitis C Sc caitning [facility] Start: 1976 HIV screening HIV Screening [facility] Start: 1976 Spirometry Spirometry [facility] Start: 1964 Pneumococcal Vaccine : 65+ (1 of 2 - PCV) Pneumococcal Vaccine: 65+ (1 of 2 - PCV) [facility] Start: 1958 Abdominal aortic aneurysm screening Abdominal Aortic Aneurysm Screening [facility] Start: 1958 Medicare Annual Well ness (AWV) Medicare Annual Wellness (AWV) [facility] Start: 1958 Screening for malign ant neoplasm of colon [facility] BLOOD CULTURE 1 BLOOD CULTURE 1 Lab Routine 01/05/2024 4:58 PM EST [facility] BLOOD CULTURE 2 BLOOD CULTURE 2 Lab Routine 01/05/2024 5:04 PM EST [facility] CT Guidance for radiation treatment of Unspecified body region CT SIM PLANNING RADIATION ONCOLOGY Radiology Routine Malignant neoplasm of prostate (HCC) Ordered: 09/17/2024 [facility] Work Phone: Comment on above: Ordered: 09/17/2024 End: 06-01-2025 Prostate specific Ag [Mass/volume] in Serum or Plasma PROSTATE-SPECIFIC ANTIGEN DIAGNOSTIC Lab Routine Prostate cancer (HCC) Every 6 months for 3 Occurrences starting 06/01/2024 until 06/01/[address] [facility] Comment on above: Every 6 months for 3 Occurrences starting 06/01/2024 until 06/01/2025 Immunizations Immunization Date Immunization Notes Care Provider Fa cility 08-17-2024 Pneumococcal Conjuga te PCV 20 Kathie Sánchez NP Work Phone: [facility] 08-17-2024 RSV, recombinant, protein subunit RSVpreF, adjuvant reconstitu, 120mcg/0.5mL, PF (Arexvy) Kathie Sánchez NP Work Phone: [facility] 09-17-2023 zoster vaccine recombinant Rufina VORA [facility] 07-04-2023 zoster vaccine recombinant Rufina VORA [facility] 09-25-2022 SARS-CoV-2 (COVID-19 ) [id number] Rufina VORA [facility] 05-26-2021 SARS-CoV-2 (COVID-19 ) mRNA BNT-162b2 vax Rufinamichelle VORA [facility] 05-05-2021 SARS-CoV-2 (COVID-19 ) mRNA BNT-162b2 vax Rufinamichelle VORA [facility] 03-11-2021 tetanus toxoid, redu liyah diphtheria toxoid, and acellular pertussis vaccine, adsorbed Rufina DIONY [facility] Payers Date Payer Category Payer Unknown [facility] ANTH MEDICARE ADVANTAGE O [id number] 2023-Present [phone] [address] [place] [id number] [facility] [id number] 2022 Medicare [facility] MEDICARE ADVANTAGE [facility] MEDICARE ADVANTAGE [id number] 2022-Present [address] [place] [id number] 2022 Medicare (Managed Care) [employer] [id number] 2020 Medicaid [id number] 1959 Medicaid [id number] 1959 Medicare [id number] 1959 Unknown [id number] 1958 Unknown [id number] 2.16.840.1.070397.3.579.2. 593 1958 Unknown [id number] 2.16.840.1.676340.3.579.2. 593 1958 Unknown [id number] 2.16.840.1.742435.3.579.2. 593 1958 Unknown [id number] 2.16.840.1.058045.3.579.2. 593 1958 Unknown [id number] 2.16.840.1.989175.3.579.2. 593 1958 Unknown [id number] 2.16.840.1.727618.3.579.2. 593 1958 Unknown [id number] 2.16.840.1.671747.3.579.2. 593 1958 Unknown [id number] 2.16.840.1.997607.3.579.2. 593 1958 Unknown [id number] 2.16.840.1.296190.3.579.2. 727 1958 Unknown [id number] 2.16.840.1.347286.3.579.2. 727 1958 Unknown [id number] 2.16.840.1.763979.3.579.2. 727 1958 Unknown [id number] 2.16.840.1.975951.3.579.2. 727 1958 Unknown [id number] 2.16.840.1.417592.3.579.2. 727 1958 Unknown [id number] 2.16.840.1.917325.3.579.2. 1259 1958 Unknown [id number] 2.16.840.1.463013.3.579.2. 1259 1958 Unknown [id number] 2.16.840.1.582854.3.579.2. 1259 1958 Unknown [id number] 2.16.840.1.031217.3.579.2. 9 1958 Unknown [id number] 2.16.840.1.260054.3.579.2. 727 1958 Unknown [id number] 2.16.840.1.141308.3.579.2. 727 Self-pay Self Pay [id number] Social History Date Type Detail Facility Tobacco smoking stat [facility] Unknown if ever smoked [facility] Start: 1960 Sex Assigned At Male F [facility] Start: 05-17-2022 End: 11-13-2023 Tobacco smoking status Ex-smoker (finding) [facility] Start: 11-13-2023 End: 02-28-2024 Sex Assigned At Male [facility] Tobacco smoking status Never [facility] Start: 11-28-1975 End: 11-28-2016 History of tobacco use Current smoker [facility] Start: 11-28-1975 End: 11-28-2016 History of tobacco use Cigarette Smoker [facility] Start: 11-13-2023 End: 02-28-2024 Cigarettes smoked current (pack per day) - Reported 2 [facility] Start: 11-13-2023 End: 01-02-2025 Alcohol intake Ex-drinker (finding) [facility] Start: 1960 Sex Assigned At Not on file [facility] Start: 05-16-2013 Tobacco smoking stat us WIIS Smokes tobacco daily [facility] Start: 05-16-2013 End: 09-11-2024 Tobacco use and exposure Smokeless tobacco non-user [facility] [facility]: [facility]16[facility]2013 Alcohol intake Current drinke r of alcohol (finding) [facility] Start: 06-21-2024 Alcohol Comment quit 2016 [facility] Within the last year , have you been afraid of your partner or ex-partner? No [facility] Do you belong to any clubs or organizations such as rastafarian groups, unions, fraternal or athletic groups, or [...] 05-21-2024 Functional Status N/A [facility] 06-06-2023 Functional Status N/A [facility] 05-17-2023 Functional Status N/A [facility] 02-07-2023 Functional Status N/A [facility] 08-05-2022 N/A [facility] 06-11-2022 Functional Status N/A [facility] 05-17-2022 Functional Status N/A [facility] Clinical Notes 05-17-2022 to 02-22-2025 Telephone Encounter - Kathie Sánchez NP - 02/22/2025 10:04 AM EDTTelephone Encounter - Kathie Sánchez NP - 02/22/2025 10:04 AM Ketty Valdovinos DO - 01/02/2025 10:45 AM ESTPatient Instructions Note Date & Type Note Facility 02-22-2025 Telephone encounter Note Who is prescribing him reglan and for what reason? Maybe from the cancer doctor??? I am not sure who or why he is getting it. Can you find out a little more about that?? [place] [facility] 02-22-2025 Miscellaneous Notes Who is prescribing him reglan and for what reason? Maybe from the cancer doctor??? I am not sure who or why he is getting it. Can you find out a little more about that?? [place] documented in this encounter [facility] 01-02-2025 History of Present illness Narrative Images [...] Medications (Ophthalmic Agents) Medication Sig Dispense Refill Wmbzhohobyp-Onfzkmnp-Ewqsdcozl 1-0.5-0.075 % solution Administer 1 drop into [...] Do not crush, chew, or split.. HYDROcodone-acetaminophen (Monument) 5-325 MG tablet pantoprazole (ProtoNix) 40 MG [...] (Other) Past Medical History: Diagnosis Date Alcoholism ([facility]) Atrial fibrillation ([facility]) Azygos lobe Carpal tunnel syndrome, bilateral Centrilobular emphysema ([facility]) Chronic GERD 12/06/2023 Chronic hypoxemic respiratory failure ([facility]) Chronic lumbar radiculopathy Collapse of left lung 2014 (L) LUNG COLLAPSE / CHEST TUBE COPD (chronic obstructive pulmonary disease) ([facility]) 2016 COPD / IMFLAMMATION OF LUNG DENIES BLOODBORNE DISEASES Elevated PSA Gout, arthritis History of pneumothorax History of tobacco abuse Hyperlipidemia ([facility]) Lobular atelectasis Neuropathy Prostate cancer ([facility]) Right lower lobe lung mass [...] @ 11:08 AM Additional Tests Keratometry K1 Osseo K2 Osseo Right 42.25 2 43.50 92 Left 42.00 [...] +1.50 Type: OTC Manifest Refraction Sphere Cylinder Osseo Right Left +3.50 -2.00 094 Final Rx [...] different lens options were explained including the gqn-lj-fdhnxv fees for any upgrades. Intraocular lens (IOL) [...] OS - 02/25. documented in this encounter [facility] 12-12-2024 History of Present illness Narrative Radiation Oncology - Follow Up Note PATIENT NAME: Mateo Stearns PATIENT DIAGNOSIS: Prostate adenocarcinoma, initial PSA 4.46, biopsy Westford score 3 + 3 = 6 (grade [...] by: Severo Dent MD cc: Kathie Sánchez, NUCLEAR REACTOR OPERATOR ([facility]) [address] [place] [address] No referring provider defined for this encounter. AUA 2 Mona Melvin RN documented in this encounter [facility] 11-26-2024 Note HNO ID: [id number] Author: [facility] NICOLAS LSW Service: ? Author Type: Toll Gate Tender Type: Progress Notes Filed: 11/26/2024 13:09 Note Text: SOCIAL WORK FOLLOW UP NOTE: [facility] Date of service:11/26/24 TOPICS ADDRESSED: community resources PLAN: Continue follow up as needed Assigned SW listed in Care Team tab: Yes SW completed and faxed October 2024 mileage reimbursement log to [facility]. SUSANNA Sotomayor [facility] 11-26-2024 History of Present illness Narrative SOCIAL WORK FOLLOW UP NOTE: [facility] Date of service:11/26/24 TOPICS ADDRESSED: community resources PLAN: Continue follow up as needed Assigned SW listed in Care Team tab: Yes SW completed and faxed October 2024 mileage reimbursement log to [facility]. SUSANNA Sotomayor documented in this encounter [facility] 11-02-2024 Note HNO ID: [id number] Author: Severo DENT MD Service: ? Author Type: Physician Type: Progress Notes Filed: 11/09/2024 11:44 Note Text: Radiation Oncology - On Treatment Review (OTR) Note PATIENT NAME: Mateo Stearns PATIENT DIAGNOSIS: Prostate adenocarcinoma, initial PSA 4.46, biopsy Westford score 3 + 3 = 6 (grade [...] Follow-up as scheduled. Severo Dent MD [facility] 11-02-2024 History of Present illness Narrative Radiation Oncology - On Treatment Review (OTR) Note PATIENT NAME: Mateo Stearns PATIENT DIAGNOSIS: Prostate adenocarcinoma, initial PSA 4.46, biopsy Westford score 3 + 3 = 6 (grade [...] Severo Dent MD documented in this encounter [facility] 11-02-2024 History of Present illness Narrative [facility] Radiation Oncology Department RADIATION ONCOLOGY - COMPLETION NOTE PATIENT: MATEO STEARNS: 1960 DATES OF TREATMENT: 09/25/24 - 11/02/24 DIAGNOSIS: Prostate adenocarcinoma, initial PSA 4.46, biopsy Westford score 3 + 3 = 6 (grade [...] Sánchez, PROMISE Vora documented in this encounter [facility] 11-02-2024 Note HNO ID: [id number] Author: Severo DENT MD Service: ? Author Type: Physician Type: Progress Notes Filed: 11/08/2024 14:37 Note Text: [facility] Radiation Oncology Department RADIATION ONCOLOGY - COMPLETION NOTE PATIENT: MATEO STEARNS: 1960 DATES OF TREATMENT: 09/25/24 - 11/02/24 DIAGNOSIS: Prostate adenocarcinoma, initial PSA 4.46, biopsy Westford score 3 + 3 = 6 (grade [...] Electronically Signed cc: Kathie Sánchez, PROMISE Vora [facility] 10-29-2024 Note HNO ID: [id number] Author: Severo DENT MD Service: ? Author Type: Physician Type: Progress Notes Filed: 10/29/2024 10:54 Note Text: Radiation Oncology - On Treatment Review (OTR) Note PATIENT NAME: Mateo Stearns PATIENT DIAGNOSIS: Prostate adenocarcinoma, initial PSA 4.46, biopsy Westford score 3 + 3 = 6 (grade [...] Follow-up care discussed. Severo Dent MD [facility] 10-29-2024 History of Present illness Narrative [...] Severo Dent MD documented in this encounter [facility] 10-26-2024 Note HNO ID: [id number] Author: UMU NICOLAS LSW Service: ? Author Type: Toll Gate Tender Type: Progress Notes Filed: 10/26/2024 10:44 Note Text: [facility] FOLLOW UP [facility] Date of service:10/26/24 TOPICS ADDRESSED: community resources PLAN: Continue follow up as needed Assigned SW listed in Care Team tab: Yes SW completed and faxed September 2024 mileage reimbursement log to [facility] SUSANNA Sotomayor [facility] 10-26-2024 History of Present illness Narrative SOCIAL WORK FOLLOW UP NOTE[facility] Date of service:10/26/24 TOPICS ADDRESSED: community resources PLAN: Continue follow up as needed Assigned SW listed in Care Team tab: Yes SW completed and faxed September 2024 mileage reimbursement log to [facility] SUSANNA Sotomayor documented in this encounter [facility] 10-22-2024 Note HNO ID: [id number] Author: Severo DENT MD Service: ? Author Type: Physician Type: Progress Notes Filed: 10/22/2024 10:51 Note Text: Radiation Oncology - On Treatment Review (OTR) Note PATIENT NAME: Mateo Stearns PATIENT DIAGNOSIS: Prostate adenocarcinoma, initial PSA 4.46, biopsy Westford score 3 + 3 = 6 (grade [...] radiation as outlined. Severo Dent MD [facility] 10-22-2024 History of Present illness Narrative Radiation Oncology - On Treatment Review (OTR) Note PATIENT NAME: Mateo Stearns PATIENT DIAGNOSIS: Prostate adenocarcinoma, initial PSA 4.46, biopsy Westford score 3 + 3 = 6 (grade [...] Severo Dent MD documented in this encounter [facility] 10-16-2024 History of Present illness Narrative Associated [...] Chronic GERD 12/06/2023 Chronic hypoxemic respiratory failure ([facility]) Chronic lumbar radiculopathy Collapse of left lung [...] and his symtpoms documented in this encounter [facility] 10-16-2024 Instructions Kathie Sánchez NP - 10/16/2024 11:00 AM EST Will give you some hand outs on stretching exercises Follow up in November 2024 for recheck documented in this encounter [facility] 10-15-2024 Note HNO ID: [id number] Author: Severo DENT MD Service: ? Author Type: Physician Type: Progress Notes Filed: 10/15/2024 15:22 Note Text: Radiation Oncology - On Treatment Review (OTR) Note PATIENT NAME: Mateo Stearns PATIENT DIAGNOSIS: Prostate adenocarcinoma, initial PSA 4.46, biopsy Westford score 3 + 3 = 6 (grade [...] in 2 weeks. Severo Dent MD [facility] 10-15-2024 History of Present illness Narrative [...] Severo Dent MD documented in this encounter [facility] 10-11-2024 Nurse Note Mateo Stearns presents in office today for: Lab Draw only . Ordering Provider: Gopal Dent M.D. Test (s) ordered: CBC Method for obtaining blood: Phlebotomy was performed, accessing left antecubital vein. Needle removed intact. Dressing secured. Patient denies discomfort, dizziness, light-headedness or weakness and left the department without assist. Dayanna Call LPN [facility] 10-11-2024 Nurse Note Mateo Stearns presents in office today for: Lab Draw only . Ordering Provider: Gopal Dent M.D. Test (s) ordered: CBC Method for obtaining blood: Phlebotomy was performed, accessing left antecubital vein. Needle removed intact. Dressing secured. Patient denies discomfort, dizziness, light-headedness or weakness and left the department without assist. Dayanna Call LPN documented in this encounter [facility] 10-08-2024 Note HNO ID: [id number] Author: Severo DENT MD Service: ? Author [...] recheck this week. Severo Dent MD [facility] 10-08-2024 History of Present illness Narrative Radiation Oncology - On Treatment Review (OTR) Note PATIENT NAME: Mateo Stearns PATIENT DIAGNOSIS: Prostate adenocarcinoma, initial PSA 4.46, biopsy Westford score 3 + 3 = 6 (grade [...] Severo Dent MD documented in this encounter [facility] 10-04-2024 Nurse Note Mateo Stearns presents in office today for: Lab Draw only . Ordering Provider: Gopal Dent M.D. Test (s) ordered: CBC Method for obtaining blood: Phlebotomy was performed, accessing left antecubital vein. Needle removed intact. Dressing secured. Patient denies discomfort, dizziness, light-headedness or weakness and left the department without assist. Dayanna Call LPN [facility] 10-04-2024 Nurse Note Mateo Stearns presents in office today for: Lab Draw only . Ordering Provider: Gopal Dent M.D. Test (s) ordered: CBC Method for obtaining blood: Phlebotomy was performed, accessing left antecubital vein. Needle removed intact. Dressing secured. Patient denies discomfort, dizziness, light-headedness or weakness and left the department without assist. Dayanna Call LPN documented in this encounter [facility] 10-01-2024 Note HNO ID: [id number] Author: Severo DENT MD Service: ? Author Type: Physician Type: Progress Notes Filed: 10/01/2024 10:51 Note Text: Radiation Oncology - On Treatment Review (OTR) Note PATIENT NAME: Mateo Stearns PATIENT DIAGNOSIS: Prostate adenocarcinoma, initial PSA 4.46, biopsy Westford score 3 + 3 = 6 (grade [...] radiation as outlined. Severo Dent MD [facility] 10-01-2024 History of Present illness Narrative [...] Severo Dent MD documented in this encounter [facility] 09-25-2024 Note HNO ID: [id number] Author: UMU NICOLAS LSW Service: ? Author Type: Toll Gate Tender Type: Progress Notes Filed: 09/25/2024 14:02 Note Text: SOCIAL WORK FOLLOW UP NOTE: [facility] Date of service:09/25/24 TOPICS ADDRESSED: community resources PLAN: Continue follow up as needed Assigned SW listed in Care Team tab: Yes SW completed and faxed a mileage reimbursement form on the Patient's behalf to [facility] for the month of August 2024. SUSANNA Sotomayor [facility] 09-25-2024 History of Present illness Narrative SOCIAL WORK FOLLOW UP NOTE: [facility] Date of service:09/25/24 TOPICS ADDRESSED: community resources PLAN: Continue follow up as needed Assigned SW listed in Care Team tab: Yes SW completed and faxed a mileage reimbursement form on the Patient's behalf to [facility] for the month of August 2024. SUSANNA Sotomayor documented in this encounter [facility] 09-25-2024 History of Present illness Narrative Radiation [...] Severo Dent MD documented in this encounter [facility] 09-25-2024 Note HNO ID: [id number] Author: Severo DENT MD Service: ? Author Type: Physician Type: Progress Notes Filed: 09/26/2024 16:56 Note Text: Radiation Oncology - On Treatment Review (OTR) Note PATIENT NAME: Mateo Stearns PATIENT DIAGNOSIS: Prostate adenocarcinoma, initial PSA 4.46, biopsy Westford score 3 + 3 = 6 (grade [...] radiation as prescribed. Severo Dent MD [facility] 09-24-2024 Telephone encounter Note CBC order pending your approval. Dayanna Call RN [facility] 09-24-2024 Miscellaneous Notes CBC order pending your approval. Dayanna Call RN documented in this encounter [facility] 09-18-2024 Note HNO ID: [id number] Author: UMU NICOLAS LSW Service: ? Author Type: Toll Gate Tender Type: Progress Notes Filed: 09/18/2024 14:01 Note Text: SOCIAL WORK FOLLOW UP NOTE: [facility] Date of service:09/18/24 Mateo Stearns is [...] follow up as appropriate. SUSANNA Sotomayor [facility] 09-18-2024 History of Present illness Narrative SOCIAL WORK FOLLOW UP NOTE: [facility] Date of service:09/18/24 Mateo Stearns is [...] appropriate. SUSANNA Sotomayor documented in this encounter [facility] 09-17-2024 History of Present illness Narrative MATEO STEARNS [id number] 09/17/[address] [facility] Radiation Oncology Department SIMULATION NOTE DATE OF SIMULATION: 09/17/2024 THERAPIST: Sabina Rico MACHINE: TextMaster DIAGNOSIS: Malignant neoplasm of [id number] AREA: PELVIS CONTRAST: None <Select> Consent in [...] MARIUSZ 44:32 PM documented in this encounter [facility] 09-17-2024 History of Present illness Narrative MATEO STEARNS [id number] 09/17/[address] [facility] Department of Radiation Oncology Treatment Planning [...] M.D. 48:19 AM documented in this encounter [facility] 09-17-2024 Note HNO ID: [id number] Author: Severo DENT MD Service: ? Author Type: Physician Type: Progress Notes Filed: 09/18/2024 16:32 Note Text: MATEO STEARNS [id number] 09/17/[address] [facility] Radiation Oncology Department SIMULATION NOTE DATE OF SIMULATION: 09/17/2024 THERAPIST: Sabina Rico MACHINE: TextMaster DIAGNOSIS: Malignant neoplasm of [id number] AREA: PELVIS CONTRAST: None Consent in Epic: [...] Electronically Signed Gopal Dent M.D. / MARIUSZ :32 PM [facility] 09-17-2024 Note HNO ID: [id number] Author: Severo DENT MD Service: ? Author Type: Physician Type: Progress Notes Filed: 09/26/2024 08:19 Note Text: MATEO STEARNS [id number] 09/17/[address] [facility] Department of Radiation Oncology Treatment Planning [...] Electronically Signed Gopal Dent M.D. :19 AM [facility] 09-14-2024 Telephone encounter Note I called and spoke with the Patient and I have him scheduled with a PFA appointment (Phone call) to discuss his Financial Questions on 09/18/24 at 9 am. DARRIUS Mckee [facility] 09-14-2024 Miscellaneous Notes I called and spoke [...] Mona Melvin RN documented in this encounter [facility] 09-14-2024 Telephone encounter Note PT called in [...] Umu- please contact pt. Mona Melvin RN [facility] 09-13-2024 History of Present illness Narrative Associated [...] per dr alves documented in this encounter [facility] 09-11-2024 Nurse Note Radiation Therapy - Patient Education Note PATIENT NAME: Mateo Stearns PATIENT September 11, 2024 [facility] FACILITY/LOCATION: [facility] READINESS TO LEARN Cognitive Ability: [...] need for social work, van service, and transport assistant. Was PED reviewed? No Patient has an Onbody or Implanted device: No Signed by: Dayanna Call RN [facility] 09-11-2024 Nurse Note Radiation Therapy - Patient Education Note PATIENT NAME: Mateo Stearns PATIENT September 11, 2024 [facility] FACILITY/LOCATION: [facility] READINESS TO LEARN Cognitive Ability: [...] need for social work, van service, and transport assistant. Was PED reviewed? No Patient has an Onbody or Implanted device: No Signed by: Dayanna Call RN documented in this encounter [facility] 09-11-2024 History of Present illness Narrative Radiation Oncology - Prostate Cancer Follow-up note PATIENT NAME: Mateo Stearns PATIENT DIAGNOSIS: Prostate adenocarcinoma, initial PSA 4.46, biopsy Westford score 3 + 3 = 6 (grade group 1), clinical stage T1c, N0, M0, stage I [cT1a-c/T2a, N0, M0, PSA <10, GG 1] (AJCC 8th ed.), s/p TRUS Random biopsy. HPI: Patient in for follow-up to discuss treatment options again. Laboratory: HEXIO genomic risk score: 0.43 (low risk) PSA. [...] by: Severo Dent MD cc: Kathie Sánchez, NUCLEAR REACTOR OPERATOR ([facility]) [address] [place] [address] Rufina Vora [address] [place] [address] documented in this encounter [facility] 09-11-2024 Note HNO ID: [id number] Author: Severo DENT MD Service: ? Author Type: Physician Type: Progress Notes Filed: 09/18/2024 12:03 Note Text: Radiation Oncology - Prostate Cancer Follow-up note PATIENT NAME: Mateo Stearns PATIENT DIAGNOSIS: Prostate adenocarcinoma, initial PSA 4.46, biopsy Westford score 3 + 3 = 6 (grade group 1), clinical stage T1c, N0, M0, stage I [cT1a-c/T2a, N0, M0, PSA <10, GG 1] (AJCC 8th ed.), s/p TRUS Random biopsy. HPI: Patient in for follow-up to discuss treatment options again. Laboratory: HEXIO genomic risk score: 0.43 (low risk) PSA. [...] ASSESSMENT/PLAN: Prostate adenocarcinoma, initial PSA 4.46, biopsy Westford score 3 + 3 = 6 (grade [...] by: Severo Dent MD cc: Kathie Sánchez, NUCLEAR REACTOR OPERATOR ([facility]) [address] [place] [address] Rufina Vora [address] [place] [address] [facility] 09-11-2024 Nurse Note AUA= [address] [facility] 09-11-2024 Nurse Note AUA= 3 documented in this encounter [facility] 09-11-2024 Note Education (RADTSA) MATEO STEARNS ([id number]) 1960 M Date Time Provider Department 09/11/24 DAYANNA CALL RADSLIMEA Reason for Visit: Patient Education [91] Visit Notes: >> Dayanna Call LPN Tue Sep 11, 2024 2:21 PM Status: Signed Radiation Therapy - Patient Education Note PATIENT NAME: Mateo Stearns PATIENT September 11, 2024 [facility] FACILITY/LOCATION: [facility] READINESS TO LEARN Cognitive Ability: [...] need for social work, van service, and transport assistant. Was PED reviewed? No Patient has an [...] Status:Closed by DAYANNA CALL on 09/11/24 [facility] 07-12-2024 History of Present illness Narrative Radiation Oncology - Prostate Cancer Follow-up note PATIENT NAME: Mateo Stearns PATIENT DIAGNOSIS: 63 year old male with prostate adenocarcinoma, initial PSA 4.46, biopsy Westford score 3 + 3 = 6 (grade [...] by: Severo Dent MD cc: Kathie Sánchez, NUCLEAR REACTOR OPERATOR ([facility]) [address] [place] [address] Rufina Vora [address] [place] [address] documented in this encounter [facility] 07-12-2024 Note HNO ID: [id number] Author: Severo DENT MD Service: ? Author [...] by: Severo Dent MD cc: Kathie Sánchez, NUCLEAR REACTOR OPERATOR ([facility]) [address] [place] [address] Rufina Vora [address] [place] [address] [facility] 06-21-2024 Note HNO ID: [id number] Author: Severo DENT MD Service: ? Author Type: Physician Type: Progress Notes Filed: 06/21/2024 13:50 Note Text: Radiation Oncology - Prostate Cancer New Patient/Consult Note PATIENT NAME: Mateo Stearns PATIENT REQUESTING PROVIDER: Dr. Vora DIAGNOSIS: 63 year old male with prostate adenocarcinoma, initial PSA 4.46, biopsy Westford score 3 + 3 = 6 (grade [...] on 05/01/2024 with the finding of adenocarcinoma, Westford 6 (3+3) from left lateral base, left base, left, left mid, left apical cores. (616 cores involoved) Staging Studies: None Previous Treatment [...] No respir (more content not included)... [facility] 06-21-2024 History of Present illness Narrative Radiation Oncology - Prostate Cancer New Patient/Consult Note PATIENT NAME: Mateo Stearns PATIENT REQUESTING PROVIDER: Dr. Vora DIAGNOSIS: 63 year old male with prostate adenocarcinoma, initial PSA 4.46, biopsy Westford score 3 + 3 = 6 (grade [...] base, left, left mid, left apical cores. (616 cores involoved) Staging Studies: None Previous Treatment [...] by: Severo Dent MD cc: Kathie Sánchez, NUCLEAR REACTOR OPERATOR ([facility]) [address] [place] [address] Rufina Vora [address] [place] [address] documented in this encounter [facility] 06-21-2024 Nurse Note Pacemaker/Defibrillator?N Previous Cancer(s)?N Previous Radiation?N Lupus/Scleroderma?N On body monitoring device?N AUA= [address] [facility] 06-21-2024 Nurse Note Pacemaker/Defibrillator?N Previous Cancer(s)?N Previous Radiation?N Lupus/Scleroderma?N On body monitoring device?N AUA= 5 documented in this encounter [facility] 06-01-2024 Note HNO ID: [id number] Author: AMANDEEP CRISOSTOMO MD Service: ? Author Type: Physician Type: Progress Notes Filed: 06/24/2024 16:18 Note Text: Referring Provider: Chief Complaint: Recently diagnosed CaP HPI: 63 year old male from [place], [place] with a PMHx of COPD (40 [...] review Assessment 63 year old male from [place], [place] with a PMHx of COPD (40 pack-year smoker and poor oxygenation status), Afib (on ASA), and GERD diagnosed with CAP in 05/20 which showed 2 cores of Westford 6 disease. Recently had more + cores on a repeat biopsy and is here to discuss treatment options. He currently has low risk disease. We discussed the treatment options which include continued active surveillance, RARP, and XRT including EBRT or brachytherapy. Given patient's COPD status he may not be best candidate for surgery an (more content not included)... [facility] 06-01-2024 History of Present illness Narrative Referring Provider: Chief Complaint: Recently diagnosed CaP HPI: 63 year old male from [place], [place] with a PMHx of COPD (40 [...] review Assessment 63 year old male from [place], [place] with a PMHx of COPD (40 pack-year smoker and poor oxygenation status), Afib (on ASA), and GERD diagnosed with CAP in 05/20 which showed 2 cores of Westford 6 disease. Recently had more + cores [...] Amandeep Crisostomo MD documented in this encounter [facility] 06-01-2024 Note Patient Outreach (UR OLMN) MATEO STEARNS ([id number]) 1960 M Date Time Provider Department 06/01/24 AMANDEEP CRISOSTOMO During your visit today, we recorded the following information about you: Allergies As of Date: 06/01/2024 (No Known Allergies) Date Reviewed: 06/01/2024 Reviewed by: Garrett Davis MA - Fully Assessed Visit Diagnosis:Screening for genitourinary condition [Z13.89] Order(s):URINALYSIS, REFLEX MICROSCOPIC [SXO5389] Order #: [id number]. #:[id number] Prescriptions as of 06/04/2024 - aspirin, enteric [...] Marijuana smoker [F12.90] 05/16/2013 Encounter Status:Closed by [employer] on 06/04/24 [facility] 05-21-2024 Hospital Discharge instructions Patient Education [...] under a microscope. This is called the Westford score and the total score can range [...] stress of having cancer. General instructions Take guhr-kgp-ywfybit and prescription medicines only as told by your health care provider. If you have to go to the hospital, notify your cancer specialist (oncologist). Keep all follow-up visits. This is important. Where to find more information [place] Cancer Society: www.cancer.org [place] Society of Clinical Oncology: www.cancer.net National Cancer Hillside: www.cancer.gov Contact a health care provider if: [...] provider. Document Revised: 02/10/2022 Document Reviewed: 02/10/2022 [employer] Patient Education 2022 [employer]. Follow Up Care 01/02/2024 13:58:04 With:DIONY CHANDLER, Rufina Reina, URL Address: [facility] [address], [place] [phone] When: Unknown [facility] 05-01-2024 Hospital Discharge instructions Patient Education [...] for your post-operative appointment in 1-2 weeks [phone] or [phone] Follow Up Care 03/15/2024 14:41:59 With:Rufina DIONY Address: [address] [place], [place] [id number] Business (1) When: Unknown Comments:Keep scheduled appointment [facility] 05-01-2024 Note [id number] [facility] 06-06-2023 Hospital Discharge instructions Patient Education 06/06/2023 [...] similar to normal prostate cells (moderately differentiated). Westford 8, 9, or 10: This indicates that [...] stress of having cancer. General instructions Take ywni-kjv-ouobgle and prescription medicines only as told by your health care provider. If you have to go to the hospital, notify your cancer specialist (oncologist). Keep all follow-up visits. This is important. Where to find more information [place] Cancer Society: www.cancer.org [place] Society of Clinical Oncology: www.cancer.net National Cancer Hillside: www.cancer.gov Contact a health care provider if: [...] provider. Document Revised: 02/10/2022 Document Reviewed: 02/10/2022 [employer] Patient Education 2022 [employer]. Follow Up Care 04/27/2023 15:15:09 With:DIONY CHANDLER, Rufina Reina, URL Address: [facility] [address] [place] [address] [phone] When:Within 6 Month(s) Comments:PSA and ANNE-MARIE [facility] 05-17-2023 Hospital Discharge instructions Patient Education 05/17/2023 [...] for your post-operative appointment in 1-2 weeks [phone] or [phone] Follow Up Care 04/27/2023 15:25:07 With:Rufina VORA Address: [facility] [address] [place] [address]- Business (1) When: Unknown Comments:Keep scheduled appointment [facility] 02-07-2023 Hospital Discharge instructions Patient [...] if anything looks unusual. Men with a lzizpz-zumj-ggqrjq risk for skin cancer may want to see a member service specialist (rib matcher and fitter) for an annual body check. Where to find more information National Cancer Hillside: https://www.cancer.gov/about-canc er/screening Centers for Disease Control and Prevention: https://www.cdc.gov/cancer/dcpc/p revention/screening.htm [place] Cancer Society: https://www.cancer.org/latest-new s/2-bnnjjy-djrxhhpbz-vnjby-ijx-zs n.html Contact a health care provider if: [...] 08/11/2017 Document Revised: 08/03/2019 Document Reviewed: 08/11/2017 [employer] Patient Education 2020 [employer] Follow Up Care 12/10/2022 10:33:39 With:DIONY CHANDLER, Rufina Reina, URL Address: [facility] [address] [place] [address]- When: Unknown [facility] 05-17-2022 Hospital Discharge instructions Patient Education 05/17/2022 13:40:29 Epidermal Cyst, Hhhl-ku-Xmno Epidermal Cyst An epidermal cyst is a [...] yourself. Follow these instructions at home: Take ukrx-pis-khgossd and prescription medicines only as told by [...] the cyst, or to remove it. Take fbmy-weq-trfncyp and prescription medicines only as told by [...] 12/22/2005 Document Revised: 03/06/2020 Document Reviewed: 08/23/2019 [employer] Patient Education 2019 [employer]. 04/19/2022 08:23:29 Testicular Self-Exam Testicular Self-Exam A [...] 02/20/2002 Document Revised: 03/06/2020 Document Reviewed: 10/10/2017 [employer] Patient Education 2020 [employer]. Follow Up Care 03/17/2022 10:53:14 With:Rufina VORA MD, URL Address: [facility] [address], [place] [address]- When: Unknown [facility] Evaluation + Plan note Future Appointments Appointment Date:06/08/2022 08:45:00 AM Scheduled Provider: Location:[facility] Appointment Type:Urology CALL PAT FT Appointment Date:06/15/2022 09:00:00 AM Scheduled Provider: Location:[facility] Appointment Type:Urology FT [facility] Evaluation + Plan note Future Appointments Appointment Date:08/23/2022 12:30:00 PM Scheduled Provider:Ruf[facility]ORA MD [facility]O Office Visit [facility] Evaluation + Plan note Future Appointments Appointment Date:06/06/2023 09:45:00 AM Scheduled Provider:Rufina VORA MD [facility] App[facility] Type:URO Office Visit Diagnostic Tests PendingProstate Histology ([facility]) 05/17/23 [facility] Evaluation + Plan note Future Appointments Appointment Date:12/09/2023 10:45:00 AM Scheduled Provider:Rufina VORA MD [facility] App[facility] Type:URO Office Visit Diagnostic Tests PendingPSA Total 06/06/23 [facility] Evaluation + Plan note Future Appointments Appointment Date:05/21/2024 11:30:00 AM Scheduled Provider:Rufina VORA MD [facility] App[facility] Type:URO Office Visit Diagnostic Tests PendingProstate Histology ([facility]) 05/01/24 [facility] Evaluation + Plan note [facility] Evaluation + Plan note Future Appointments Appointment Date:01/18/2025 10:30:00 AM Scheduled Provider:Rufina VORA MD Location:[facility] Appointment Type:URO Office Visit [facility] Evaluation note No Assessments Infor mation Available [facility] Evaluation note Diagnosis Screening for genitourinary condition Screening for other and unspecified genitourinary condition [facility] Diagnosis Malignant neoplasm of prostate (HCC)- Primary Malignant neoplasm of prostate [facility] Diagnosis Prostate cancer (HCC)- Primary Malignant neoplasm of prostate [facility] Diagnosis Malignant neoplasm of prostate (HCC)- Primary Malignant neoplasm of prostate [facility] [place] [facility] Diagnosis Encounter for subsequent annual wellness [...] Other chronic [facility] Malignant neoplasm of prostate (HCC)- Primary Malignant neoplasm of prostate [facility] [place] Diagnosis Malignant neoplasm of prostate (HCC)- Primary Malignant neoplasm of prostate [facility] [place] [facility] Diagnosis Malignant neoplasm of prostate (HCC)- Primary Malignant neoplasm of prostate documented [facility] [place] [facility] Diagnosis Malignant neoplasm of prostate (HCC)- Primary Malignant neoplasm of prostate [facility] [place] Diagnosis Malignant neoplasm of prostate (HCC)- Primary Malignant neoplasm of prostate documented in this encounter [facility] note* Diagnosis Malignant neoplasm of prostate (HCC) Malignant neoplasm of prostate documented in this encounter [facility] note* Diagnosis Malignant neoplasm of prostate (HCC)- Primary Malignant neoplasm of prostate documented in this encounter [facility] note* Diagnosis Malignant neoplasm of prostate (HCC) Malignant neoplasm of prostate documented in this encounter [facility] note* Diagnosis Malignant neoplasm of prostate (HCC)- Primary Malignant neoplasm of prostate documented in this encounter [facility] note* Diagnosis Encounter for subsequent annual [...] neoplasm of prostate documented in this encounter [facility] note* Diagnosis Malignant neoplasm of prostate (HCC)- Primary Malignant neoplasm of prostate documented in this encounter [facility] note* Diagnosis Malignant neoplasm of prostate (HCC)- Primary Malignant neoplasm of prostate documented in this encounter [facility] note* Diagnosis Malignant neoplasm of prostate (HCC)- Primary Malignant neoplasm of prostate documented in this encounter [facility] note* Diagnosis Encounter for subsequent annual [...] eyes- Primary [facility] Encounter for subsequent annual wellness [...] Prostate cancer (CMS/HCC) Malignant neoplasm of prostate Nausea- Primary Nausea alone documented in this encounter [facility] Narrative No data available for this section [facility] Hospital Discharge instructions No data available for this section [facility] No data available for this section [facility] reason for referral (narrative) Referred by: DIONY CHANDLER, Rufina Reina [facility] Summary Purpose Family History No [...] 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 Severo Dent MD [address] [place] [address] [place] [address] Referral ID Status Reason Start Date Expiration Date Visits Requested Visits Authorized [id number] New Request PCP Requested Referral 4 12/16/2024 1 1 Additional Source Comments (unrecognized sect ion and content) No Status Records FoundNo Status Records FoundNo Status Records FoundNo Status Records FoundNo Status Records FoundNo Status Records Found INFORMATION SOURCE (unrecogn ized section and content) DATE CREATED AUTHOR 04/01/2021 [facility] DATE CREATED AUTHOR AUTHOR'S ORGANIZ ATION 04/13/2023 [facility] DATE CREATED AUTHOR AUTHOR'S ORGANIZ ATION 05/22/2024 [facility] DATE CREATED AUTHOR AUTHOR'S ORGANIZ ATION 12/15/2024 [facility] DATE CREATED AUTHOR AUTHOR'S ORGANIZ ATION 01/04/2025 [facility] DATE CREATED AUTHOR AUTHOR'S ORGANIZ ATION 01/21/2025 [facility] Care Team (unrecognized sect ion and content) Senior Java Architect Relationship Specialty Start Date End Date Curt De Dios MD [address] [place] [address] PCP - General Family Medicine 11/11/23 Kathie Sánchez NP [address] [place] [address] Nurse Practitioner Family Medicine 10/03/23 Senior Java Architect Relationship Specialty Start Date End Date Peter Bhat DO PCP - General Family Medicine 05/11/13 Senior Java Architect Relationship Specialty Start Date End Date Kathie Sánchez NUCLEAR REACTOR OPERATOR [address] [place] [address] PCP - General Family Medicine 06/21/24 Senior Java Architect Relationship Specialty Start Date End Date Peter BhatDO PCP - General Family Medicine 05/11/13 06/20/24 Senior Java Architect Relationship Specialty Start Date End Date Kathie Sánchez, NUCLEAR REACTOR OPERATOR [address] [place] [address] PCP - General Family Medicine 06/21/24 Senior Java Architect Relationship Specialty Start Date End Date Kathie Sánchez NP [address] [place] [address] PCP - Crow LAFLEUR 12/29/23 Curt De Dios MD [address] [place] [address] PCP - General Family Medicine 02/28/24 Kathie Sánchez NP [address] [place] [address] Nurse Practitioner Family Medicine 10/03/23 Kathie Sánchez NP [address] [place] [address] Nurse Practitioner Family Medicine 02/28/24 Senior Java Architect Relationship Specialty Start Date End Date Kathie Sánchez NUCLEAR REACTOR OPERATOR [address] [place] [address] PCP - General Family Medicine 06/21/24 Senior Java Architect Relationship Specialty Start Date End Date Kathie Sánchez NP [address] [place] [address] PCP - Crow LAFLEUR 12/29/23 Curt De Dios MD [address] [place] [address] PCP - General Family Medicine 02/28/24 Kathie Sánchez NP [address] [place] [address] Nurse Practitioner Family Medicine 10/03/23 Kathie Sánchez NP [address] [place] [address] Nurse Practitioner Family Medicine 02/28/24 Senior Java Architect Relationship Specialty Start Date End Date Kathie Sánchez NP [address] [place] [address] PCP - Crow LAFLEUR 12/29/23 Curt De Dios MD [address] [place] [address] PCP - General Family Medicine 02/28/24 Kathie Sánchez NP [address] [place] [address] Nurse Practitioner Family Medicine 10/03/23 Kathie Sánchez NP [address] [place] [address] Nurse Practitioner Family Medicine 02/28/24 Senior Java Architect Relationship Specialty Start Date End Date Kathie Sánchez CNP [address] [place] [address] PCP - General Family Medicine 06/21/24 Senior Java Architect Relationship Specialty Start Date End Date Kathie Sánchez CNP [address] [place] [address] PCP - General Family Medicine 06/21/24 Senior Java Architect Relationship Specialty Start Date End Date Kathie Sánchez CNP [address] [place] [address] PCP - General Family Medicine 06/21/24 Umu Nicolas LSW Toll Gate Tender 09/18/24 Senior Java Architect Relationship Specialty Start Date End Date Kathie Sánchez CNP [address] [place] [address] PCP - General Family Medicine 06/21/24 Umu Nicolas, ADVERTISEMENT COMPOSITOR Toll Gate Tender 09/18/24 Senior Java Architect Relationship Specialty Start Date End Date Kathie Sánchez CNP [address] [place] [address] PCP - General Family Medicine 06/21/24 Umu Nicolas, ADVERTISEMENT COMPOSITOR Toll Gate Tender 09/18/24 Senior Java Architect Relationship Specialty Start Date End Date Kathie Sánchez CNP [address] [place] [address] PCP - General Family Medicine 06/21/24 Umu Nicolas, ADVERTISEMENT COMPOSITOR Toll Gate Tender 09/18/24 Senior Java Architect Relationship Specialty Start Date End Date Kathie Sánchez, PROMISE [address] [place] [address] PCP - General Family Medicine 06/21/24 Umu Nicolas, ADVERTISEMENT COMPOSITOR Toll Gate Tender 09/18/24 Senior Java Architect Relationship Specialty Start Date End Date Kathie Sánchze, PROMISE [address] [place] [address] PCP - General Family Medicine 06/21/24 Umu Nicolas, ADVERTISEMENT COMPOSITOR Toll Gate Tender 09/18/24 Senior Java Architect Relationship Specialty Start Date End Date Kathie Sánchez, NUCLEAR REACTOR OPERATOR [address] [place] [address] PCP - General Family Medicine 06/21/24 Umu Nicolas, ADVERTISEMENT COMPOSITOR Toll Gate Tender 09/18/24 Senior Java Architect Relationship Specialty Start Date End Date Kathie Sánchez, NUCLEAR REACTOR OPERATOR [address] [place] [address] PCP - General Family Medicine 06/21/24 Umu Nicolas, ADVERTISEMENT COMPOSITOR Toll Gate Tender 09/18/24 Senior Java Architect Relationship Specialty Start Date End Date Kathie Sánchez, DONALD [address] [place] [address] PCP - [facility] LAFLEUR 12/29/23 Curt De Dios MD [address] [place] [address] PCP - General Family Medicine 02/28/24 Kathie Sánchez NP [address] [place] [address] Nurse Practitioner Family Medicine 10/03/23 Kathie Sánchez NP [address] [place] [address] Nurse Practitioner Family Medicine 02/28/24 Senior Java Architect Relationship Specialty Start Date End Date Kathie Sánchez CNP [address] [place] [address] PCP - General Family Medicine 06/21/24 Umu Nicolas LSW Toll Gate Tender 09/18/24 Senior Java Architect Relationship Specialty Start Date End Date Kathie Sánchez CNP [address] [place] [address] PCP - General Family Medicine 06/21/24 Umu Nicolas LSW Toll Gate Tender 09/18/24 Senior Java Architect Relationship Specialty Start Date End Date Kathie Sánchez NUCLEAR REACTOR OPERATOR [address] [place] [address] PCP - General Family Medicine 06/21/24 Umu Nicolas LSW Toll Gate Tender 09/18/24 Senior Java Architect Relationship Specialty Start Date End Date Kathie Sánchez NP [address] [place] [address] PCP - [facility] LAFLEUR 12/29/23 Curt De Dios MD [address] [place] [address] PCP - General Family Medicine 02/28/24 Kathie Sánchez NP [address] [place] [address] Nurse Practitioner Family Medicine 10/03/23 Kathie Sánchez NP [address] [place] [address] Nurse Practitioner Family Medicine 02/28/24 Senior Java Architect Relationship Specialty Start Date End Date Kathie Sánchez NP [address] [place] [address] PCP - [facility] 12/29/23 Curt De Dios MD [address] [place] [address] PCP - General Family Medicine 02/28/24 Kathie Sánchez NP [address] [place] [address] Nurse Practitioner Family Medicine 10/03/23 Kathie Sánchez NP [address] [place] [address] Nurse Practitioner Family Medicine 02/28/24 Senior Java Architect Relationship Specialty Start Date End Date Kathie Sánchez NP [address] [place] [address] PCP - Crow LAFLEUR 12/29/23 Curt De Dios MD [address] [place] [address] PCP - General Family Medicine 02/28/24 Kathie Sánchez NP [address] [place] [address] Nurse Practitioner Family Medicine 10/03/23 Kathie Sánchez NP [address] [place] [address] Nurse Practitioner Family Medicine 02/28/24 Senior Java Architect Relationship Specialty Start Date End Date Kathie Sánchez CNP [address] [place] [address] PCP - General Family Medicine 06/21/24 Umu Nicolas LSW Toll Gate Tender 09/18/24 Senior Java Architect Relationship Specialty Start Date End Date Kathie Sánchez CNP [address] [place] [address] PCP - General Family Medicine 06/21/24 Umu Nicolas LSW Toll Gate Tender 09/18/24 Senior Java Architect Relationship Specialty Start Date End Date Kathie Sánchez CNP [address] [place] [address] PCP - General Family Medicine 06/21/24 Umu Nicolas LSW Toll Gate Tender 09/18/24 Senior Java Architect Relationship Specialty Start Date End Date Kathie Sánchez CNP [address] [place] [address] PCP - General Family Medicine 06/21/24 Umu Nicolas LSW Toll Gate Tender 09/18/24 Senior Java Architect Relationship Specialty Start Date End Date Kathie Sánchez NUCLEAR REACTOR OPERATOR [address] [place] [address] PCP - General Family Medicine 06/21/24 Umu Nicolas LSW Toll Gate Tender 09/18/24 Senior Java Architect Relationship Specialty Start Date End Date Kathie Sánchez NUCLEAR REACTOR OPERATOR [address] [place] [address] PCP - General Family Medicine 06/21/24 Umu Nicolas LSW Toll Gate Tender 09/18/24 Senior Java Architect Relationship Specialty Start Date End Date Kathie Sánchez NP [address] [place] [address] PCP - Crow LAFLEUR 12/29/23 Curt De Dios MD [address] [place] [address] PCP - General Family Medicine 02/28/24 Kathie Sánchez NP [address] [place] [address] Nurse Practitioner Family Medicine 10/03/23 Kathie Sánchez NP [address] [place] [address] Nurse Practitioner Family Medicine 02/28/24 Lissa Garza MA Family Medicine 12/05/24 Senior Java Architect Relationship Specialty Start Date End Date Kathie Sánchez NP [address] [place] [address] PCP - Crow LAFLEUR 12/29/23 Curt De Dios MD [address] [place] [address] PCP - General Family Medicine 02/28/24 Kathie Sánchez NP [address] [place] [address] Nurse Practitioner Family Medicine 10/03/23 Kathie Sánchez NP [address] [place] [address] Nurse Practitioner Family Medicine 02/28/24 Lissa Garza MA Family Medicine 12/05/24 Andrade Pendleton OD [address] [place] [address] [place] [address] Referring Physician Optometry 01/02/25 Senior Java Architect Relationship Specialty Start Date End Date Kathie Sánchez NP [address] [place] [address] PCP - Crow LAFLEUR 12/29/23 Curt De Dios MD [address] [place] [address] PCP - General Family Medicine 02/28/24 Kathie Sánchez NP [address] [place] [address] Nurse Practitioner Family Medicine 10/03/23 Kathie Sánchez NP [address] [place] [address] Nurse Practitioner Family Medicine 02/28/24 Lissa Garza MA Family Medicine 12/05/24 Andrade Pendleton, OD [address] [place] [address] Referring Physician Optometry 01/02/25 Senior Java Architect Relationship Specialty Start Date End Date Kathie Sánchez NP [address] [place] [address] PCP - [facility] 12/29/23 Curt De Dios MD [address] [place] [address] PCP - General Family Medicine 02/28/24 Kathie Sánchez NP [address] [place] [address] Nurse Practitioner Family Medicine 10/03/23 Kathie Sánchez NP [address] [place] [address] Nurse Practitioner Family Medicine 02/28/24 Lissa Garza, MIQUEL Family Medicine 12/05/24 Andrade Pendleton, OD [address] [place] [address] Referring Physician Optometry 01/02/25 Source Comments (unrecognize d section and content) In the event this informatio n is protected by the Federal Confidentiality of Alcohol and Drug Abuse Patient Records regulations: The Federal rules restrict any use of the information to criminally investigate or prosecute any alcohol or drug abuse patient.[facility] the event this information is protected by the Federal Confidentiality of Alcohol and Drug Abuse Patient Records regulations: The Federal rules restrict any use of the information to criminally investigate or prosecute any alcohol or drug abuse patient.[facility] the event this information is protected by the Federal Confidentiality of Alcohol and Drug Abuse Patient Records regulations: The Federal rules restrict any use of the information to criminally investigate or prosecute any alcohol or drug abuse patient.[facility] CenterIn the event this information is protected by the Federal Confidentiality of Alcohol and Drug Abuse Patient Records regulations: The Federal rules restrict any use of the information to criminally investigate or prosecute any alcohol or drug abuse patient.[facility] CenterIn the event this information is protected by the Federal Confidentiality of Alcohol and Drug Abuse Patient Records regulations: The Federal rules restrict any use of the information to criminally investigate or prosecute any alcohol or drug abuse patient.[facility] CenterIn the event this information is protected by the Federal Confidentiality of Alcohol and Drug Abuse Patient Records regulations: The Federal rules restrict any use of the information to criminally investigate or prosecute any alcohol or drug abuse patient.[facility] CenterIn the event this information is protected by the Federal Confidentiality of Alcohol and Drug Abuse Patient Records regulations: The Federal rules restrict any use of the information to criminally investigate or prosecute any alcohol or drug abuse patient.[facility] CenterIn the event this information is protected by the Federal Confidentiality of Alcohol and Drug Abuse Patient Records regulations: The Federal rules restrict any use of the information to criminally investigate or prosecute any alcohol or drug abuse patient.[facility] CenterIn the event this information is protected by the Federal Confidentiality of Alcohol and Drug Abuse Patient Records regulations: The Federal rules restrict any use of the information to criminally investigate or prosecute any alcohol or drug abuse patient.[facility] CenterIn the event this information is protected by the Federal Confidentiality of Alcohol and Drug Abuse Patient Records regulations: The Federal rules restrict any use of the information to criminally investigate or prosecute any alcohol or drug abuse patient.[facility] CenterIn the event this information is protected by the Federal Confidentiality of Alcohol and Drug Abuse Patient Records regulations: The Federal rules restrict any use of the information to criminally investigate or prosecute any alcohol or drug abuse patient.[facility] CenterIn the event this information is protected by the Federal Confidentiality of Alcohol and Drug Abuse Patient Records regulations: The Federal rules restrict any use of the information to criminally investigate or prosecute any alcohol or drug abuse patient.[facility] CenterIn the event this information is protected by the Federal Confidentiality of Alcohol and Drug Abuse Patient Records regulations: The Federal rules restrict any use of the information to criminally investigate or prosecute any alcohol or drug abuse patient.[facility] CenterIn the event this information is protected by the Federal Confidentiality of Alcohol and Drug Abuse Patient Records regulations: The Federal rules restrict any use of the information to criminally investigate or prosecute any alcohol or drug abuse patient.[facility] CenterIn the event this information is protected by the Federal Confidentiality of Alcohol and Drug Abuse Patient Records regulations: The Federal rules restrict any use of the information to criminally investigate or prosecute any alcohol or drug abuse patient.[facility] CenterIn the event this information is protected by the Federal Confidentiality of Alcohol and Drug Abuse Patient Records regulations: The Federal rules restrict any use of the information to criminally investigate or prosecute any alcohol or drug abuse patient.[facility] CenterIn the event this information is protected by the Federal Confidentiality of Alcohol and Drug Abuse Patient Records regulations: The Federal rules restrict any use of the information to criminally investigate or prosecute any alcohol or drug abuse patient.[facility] CenterIn the event this information is protected by the Federal Confidentiality of Alcohol and Drug Abuse Patient Records regulations: The Federal rules restrict any use of the information to criminally investigate or prosecute any alcohol or drug abuse patient.[facility] CenterIn the event this information is protected by the Federal Confidentiality of Alcohol and Drug Abuse Patient Records regulations: The Federal rules restrict any use of the information to criminally investigate or prosecute any alcohol or drug abuse patient.[facility] CenterIn the event this information is protected by the Federal Confidentiality of Alcohol and Drug Abuse Patient Records regulations: The Federal rules restrict any use of the information to criminally investigate or prosecute any alcohol or drug abuse patient.[facility] CenterIn the event this information is protected by the Federal Confidentiality of Alcohol and Drug Abuse Patient Records regulations: The Federal rules restrict any use of the information to criminally investigate or prosecute any alcohol or drug abuse patient.[facility] CenterIn the event this information is protected by the Federal Confidentiality of Alcohol and Drug Abuse Patient Records regulations: The Federal rules restrict any use of the information to criminally investigate or prosecute any alcohol or drug abuse patient.[facility] CenterIn the event this information is protected by the Federal Confidentiality of Alcohol and Drug Abuse Patient Records regulations: The Federal rules restrict any use of the information to criminally investigate or prosecute any alcohol or drug abuse patient.[facility] CenterIn the event this information is protected by the Federal Confidentiality of Alcohol and Drug Abuse Patient Records regulations: The Federal rules restrict any use of the information to criminally investigate or prosecute any alcohol or drug abuse patient.[facility] CenterIn the event this information is protected by the Federal Confidentiality of Alcohol and Drug Abuse Patient Records regulations: The Federal rules restrict any use of the information to criminally investigate or prosecute any alcohol or drug abuse patient.[facility] CenterIn the event this information is protected by the Federal Confidentiality of Alcohol and Drug Abuse Patient Records regulations: The Federal rules restrict any use of the information to criminally investigate or prosecute any alcohol or drug abuse patient.[facility] Reason for Visit (unrecogniz ed section and [...] BE BASED ON THE PRIMARY CLINICAL RECORDS. [facility] [employer] [facility]. provides no warranty or guarantee of the accuracy or completeness of information in this document.
--- NOTE | 2025-02-23 11:49 | ED.GENADUL1 ---
HPI HPI - General Adult General Chief complaint: Nausea/Vomiting/Diarrhea Stated complaint: loss of appetite Time Seen by Provider: 02/23/25 11:12 Source: patient and medical record Source information: ems Mode of arrival: ambulance Limitations: physical limitation Limitations comment: r femur fx History of Present Illness HPI narrative: cc - decreased appetite, abd pain Pt just got out of the [facility] for rehab of a non-displaced hip fx that did not require surgery - he was not weight bearing and was placed at [facility] because he could not take care of himself at home. He says that since leaving the [facility] his appetite has been decreasing, he eats and drinks less daily and I am feeling shaky . 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 He said that he got xanax while in the hospital and at the [facility] to help me sleep at night but is no longer on it once he was discharged home. He admits to some waxing and waning abd pain. No nausea or vomiting, no diarrhea. The pain is localized to the mid abdomen. He denies pain at this time. Related Data Home Medications ?Medication ?Instructions ?Recorded ?Confirmed albuterol sulfate 90 mcg/actuation 2 inh inhalation Q4H PRN shortness 01/05/24 02/23/25 aerosol inhaler of breath or wheezing aspirin 81 mg tablet,delayed 81 mg PO DAILY 01/05/24 02/23/25 release budesonide-formoterol HFA 160 2 puff inhalation BID 01/05/24 02/23/25 mcg-4.5 mcg/actuation aerosol inhaler diltiazem HCl 180 mg 180 mg PO DAILY 01/05/24 02/23/25 capsule,extended release 24 hr, controlled pantoprazole 40 mg tablet,delayed 40 mg PO DAILY 01/05/24 02/23/25 release roflumilast 500 mcg tablet 500 mcg PO DAILY 01/05/24 02/23/25 ibuprofen 800 mg tablet 800 mg PO Q8H PRN pain 01/13/25 02/23/25 cyclosporine 0.05 % eye drops in a 1 drp ophthalmic (eye) BID 01/14/25 02/23/25 dropperette metoclopramide HCl 10 mg tablet 10 mg PO Q8H PRN nausea and 02/23/25 02/23/25 vomiting Previous Rx's ?Medication ?Instructions ?Recorded albuterol sulfate 2.5 mg/3 mL 2.5 mg (3 mL) inhalation Q6H PRN 01/18/25 (0.083 %) solution for nebulization shortness of breath or wheezing #90 mL Allergies Allergy/AdvReac Type Severity Reaction Status Date / Time No Known Drug Allergies Allergy Verified 02/23/25 11:12 Opioid HPI Opioid Management Most Recent Opioid Data: Last Pain Scale 8 01/16/25 11:13 01/16/25 Last Pain Intensity 8 01/16/25 11:13 01/16/25 Last ORT Total Score 3 01/14/25 01:09 01/14/25 Last ORT Risk Category Low Risk 01/14/25 01:09 01/14/25 [facility] History (Updated 02/23/25 @ 14:52 by Daniel Hargrove) Right upper lobe pneumonia ?J18.9 - Pneumonia, unspecified organism (ICD-10) HTN (hypertension) ?I10 - Essential (primary) hypertension (ICD-10) Acute and chronic respiratory failure with hypoxia ?J96.21 - Acute and chronic respiratory failure with hypoxia (ICD-10) Paroxysmal atrial fibrillation ?I48.0 - Paroxysmal atrial fibrillation (ICD-10) Chronic hypoxic respiratory failure ?J96.11 - Chronic respiratory failure with hypoxia (ICD-10) COPD (chronic obstructive pulmonary disease) ?J44.9 - Chronic obstructive pulmonary disease, unspecified (ICD-10) Closed fracture of proximal end of femur ?S72.009A - Fracture of unspecified part of neck of unspecified femur, initial encounter for closed fracture (ICD-10) Influenza A ?J10.1 - Influenza due to other identified influenza virus with other respiratory manifestations (ICD-10) Fall from standing ?W19.XXXA - Unspecified fall, initial encounter (ICD-10) Upper respiratory infection ?J06.9 - Acute upper respiratory infection, unspecified (ICD-10) Acute infective exacerbation of chronic obstructive airway disease ?J44.1 - Chronic obstructive pulmonary disease with (acute) exacerbation (ICD-10) Community acquired pneumonia ?J18.9 - Pneumonia, unspecified organism (ICD-10) Thoracic back pain ?M54.6 - Pain in thoracic spine (ICD-10) Enteritis ?K52.9 - Noninfective gastroenteritis and colitis, unspecified (ICD-10) Surgical History (Updated 01/22/25 @ 00:00 by ) S/P bilateral hip replacements ?Z96.643 - Presence of artificial hip joint, bilateral (ICD-10) Social History Little interest or pleasure in doing things: not at all Feeling down, depressed, or hopeless: not at all Exam Narrative Exam Narrative: Nurses notes and vital signs reviewed and patient is not hypoxic. afebrile General: Well-appearing and in no apparent distress. Skin: Warm, dry, no pallor noted. No rash. Head: Normocephalic, atraumatic. Neck: Supple, non-tender. Eye: Pupils are equal, round and EOMI. No scleral icterus. Ears, Nose, Mouth, and Throat: Oral mucosa is moist Cardiovascular: tachycardia. Respiratory: No accessory muscle use or respiratory distress. Lungs are clear to auscultation, no wheezing, rales or rhonchi Back: No midline thoracic or lumbar vertebral tenderness. No CVA tenderness Musculoskeletal: normal ROM, no calf or popliteal tenderness, no lower extremity edema/swelling GI: Abdomen is soft, non-distended. Normal bowel sounds. No solid or pulsatile masses appreciated. No tenderness to palpation. No rebound, guarding, or rigidity noted. Neurological: A&O x4. No cranial nerve dysfunction observed. No truncal ataxia. Moves all extremities. Sensation intact. Psychiatric: Cooperative and interactive. Normal mood and affect. Constitutional Vital Signs, click to edit/add: Last Vital Signs Temp 98.5 F 02/23/25 11:12 Pulse 108 H 02/23/25 11:12 Resp 20 02/23/25 11:12 BP 128/79 02/23/25 14:00 Pulse Ox 97 02/23/25 14:00 O2 Del Method Room Air 02/23/25 11:12 Course Vital Signs Vital signs: Vital Signs Temperature 98.5 F 02/23/25 11:12 Pulse Rate 108 H 02/23/25 11:12 Respiratory Rate 20 02/23/25 11:12 Blood Pressure 133/86 02/23/25 11:12 Pulse Oximetry 92 L 02/23/25 11:12 Oxygen Delivery Method Room Air 02/23/25 11:12 Temperature 98.5 F 02/23/25 11:12 Pulse Rate 108 H 02/23/25 11:12 Respiratory Rate 20 02/23/25 11:12 Blood Pressure 128/79 02/23/25 14:00 Pulse Oximetry 97 02/23/25 14:00 Oxygen Delivery Method Room Air 02/23/25 11:12 Medical Decision Making MDM Narrative Medical decision making narrative: CT of the abdomen pelvis does not reveal any acute abnormality to account for the patient's decreased appetite and difficulty eating. White blood cell elevated at 13,000 but the remainder of his blood testing was unremarkable. Urine was negative. Patient struggling at home, does not have home health, since being discharged from the [facility]. Call placed to the on-call hospitalist to discuss admission for this patient with malnourishment, Kathie functional decline, inability to care for himself, as well as decreased appetite which is contributing to his decreased oral intake. Dr Robertson and I discussed this patient's case - inability to care for hmself without home health and limits on his mobility - he is non weight5 bearing due to the hip fracture. Dr Robertson will admit him to [facility]. Lab Data Lab results reviewed: Yes I reviewed the patient's lab results Labs: Lab Results 02/23/25 02/23/25 Range/Units 11:58 12:04 WBC 13.2 H (4.0-11.0) 10^3/uL RBC 4.15 L (4.70-6.10) 10^6/uL Hgb 12.2 L (14.0-18.0) g/dL Hct 37.5 L (42.0-54.0) % MCV 90.4 (80.0-94.0) fL MCH 29.4 (25.9-34.0) pg MCHC 32.5 (29.9-35.2) g/dL RDW 14.8 (11.0-15.0) % Plt Count 363 (150-450) 10^3/uL MPV 8.7 L (9.5-13.5) fL Neut % (Auto) 92.7 H (43.0-75.0) % Lymph % (Auto) 3.6 L (20.5-60.0) % [place] % (Auto) 2.6 (1.7-12.0) % Eos % (Auto) 0.1 L (0.9-7.0) % Baso % (Auto) 0.2 (0.2-2.0) % Neut # (Auto) 12.3 H (1.4-6.5) 10^3/uL Lymph # (Auto) 0.5 L (1.2-3.8) 10^3/uL [place] # (Auto) 0.3 (0.3-0.8) 10^3/uL Eos # (Auto) 0.0 (0.0-0.7) 10^3/uL Baso # (Auto) 0.0 (0.0-0.1) 10^3/uL Abs Immat Gran (auto) 0.11 H (0.00-0.03) 10^3/uL Imm/Tot Granulo (auto) 0.8 H (0.0-0.5) % Sodium 142 (136-145) mmol/L Potassium 3.3 L (3.5-5.1) mmol/L Chloride 104 (98-107) mmol/L Carbon Dioxide 30.9 (21.0-32.0) mmol/L Anion Gap 10.4 BUN 18.0 (7.0-18.0) mg/dL Creatinine 0.73 (0.70-1.30) mg/dL Est GFR ( Amer) >60 (>=60 mL/min/1.73m^2) Est GFR (Non-Af Amer) >60 (>=60 mL/min/1.73m^2) BUN/Creatinine Ratio 24.7 Glucose 108 H (74-106) mg/dL Calcium 9.1 (8.5-10.1) mg/dL Magnesium 1.7 L (1.8-2.4) mg/dL Total Bilirubin 0.7 (0.2-1.0) mg/dL AST 21 (15-37) U/L ALT 23 (16-63) U/L Alkaline Phosphatase 82 (46-116) U/L Total Protein 6.8 (6.4-8.2) g/dL Albumin 3.2 L (3.4-5.0) g/dL Globulin 3.6 g/dL Albumin/Globulin Ratio 0.9 Lipase 29.0 (16.0-77.0) U/L Urine Color Yellow (YELLOW) Urine Clarity Clear (CLEAR) Urine pH 6.5 (5.0-9.0) Ur Specific [place] 1.020 (1.005-1.025) Urine Protein Negative (NEG/TRACE) mg/dL Urine Glucose (UA) Negative (NEGATIVE) mg/dL Urine Ketones Negative (NEGATIVE) mg/dL Urine Occult Blood Negative (NEGATIVE) Urine Nitrite Negative (NEGATIVE) Urine Bilirubin Negative (NEGATIVE) Urine Urobilinogen 0.2 (0.2-1.0) EU/dL Ur Leukocyte Esterase Negative (NEGATIVE) Urine RBC 0-2 (0-2) #/HPF Urine WBC 0-2 A (NONE SEEN) #/HPF Ur Squamous Epith Cells Rare (NONE/RARE) #/LPF Urine Crystals None seen (None Seen) #/HPF Urine Bacteria Trace A (NONE SEEN) #/HPF Urine Casts None seen (NONE SEEN) #/LPF Urine Mucus Small A (NONE SEEN) Ur Culture Indicated? No Imaging Data CT scan - abdomen: Radiologist's impression: no acute abnormality noted. Discharge Plan Discharge Chief Complaint: Nausea/Vomiting/Diarrhea Clinical Impression: Declining functional status, Malnutrition, Nausea, Anorexia Patient Disposition: Admitted As Inpatient Time of Disposition Decision: 14:51 Prescriptions / Home Meds: No Action albuterol sulfate 90 mcg/actuation HFA aerosol inhaler 2 inh INHALATION Q4H PRN (Reason: shortness of breath or wheezing) aspirin 81 mg tablet,delayed release (DR/EC) 81 mg PO DAILY budesonide-formoterol 160-4.5 mcg/actuation HFA aerosol inhaler 2 puff INHALATION BID diltiazem HCl 180 mg capsule,ext.rel 24h degradable 180 mg PO DAILY pantoprazole 40 mg tablet,delayed release (DR/EC) 40 mg PO DAILY roflumilast 500 mcg tablet 500 mcg PO DAILY ibuprofen 800 mg tablet 800 mg PO Q8H PRN (Reason: pain) cyclosporine 0.05 % dropperette 1 drp OPHTHALMIC (EYE) BID albuterol sulfate 2.5 mg /3 mL (0.083 %) solution for nebulization 2.5 mg inhalation Q6H PRN (Reason: shortness of breath or wheezing) Qty: 90 0RF metoclopramide HCl 10 mg tablet 10 mg PO Q8H PRN (Reason: nausea and vomiting) Print Language: Monegasque Additional Instructions: Dr Robertson's service Referrals: Kathie Sánchez [employer]IC[employer] SPECIALIST [Primary Care Provider] - 1 week
[2025-02-23 12:04] LABS: Basophils Percent Auto 0.2 % (0.2-2.0); Eosinophils Percent Auto 0.1 % (0.9-7.0); Hematocrit 37.5 % (42.0-54.0); Hemoglobin 12.2 g/dL (14.0-18.0); Immature Granulocytes Abs Auto 0.11 10^3/uL (0.00-0.03); Immature Granulocytes Pct Auto 0.8 % (0.0-0.5); Lymphocytes Absolute Auto 0.5 10^3/uL (1.2-3.8); Lymphocytes Percent Auto 3.6 % (20.5-60.0); Mean Corpuscular HGB Conc 32.5 g/dL (29.9-35.2); Mean Corpuscular Hemoglobin 29.4 pg (25.9-34.0); Mean Corpuscular Volume 90.4 fL (80.0-94.0); Mean Platelet Volume 8.7 fL (9.5-13.5); Monocytes Absolute Auto 0.3 10^3/uL (0.3-0.8); Monocytes Percent Auto 2.6 % (1.7-12.0); Neutrophils Absolute Auto 12.3 10^3/uL (1.4-6.5); Neutrophils Percent Auto 92.7 % (43.0-75.0); Platelet Count 363 10^3/uL (150-450); Red Blood Count 4.15 10^6/uL (4.70-6.10); Red Cell Distribution Width 14.8 % (11.0-15.0); White Blood Count 13.2 10^3/uL (4.0-11.0)
[2025-02-23 12:12] LABS: Bilirubin Urine NEGATIVE (NEGATIVE); Blood Urine NEGATIVE (NEGATIVE); Clarity Urine CLEAR (CLEAR); Color Urine YELLOW (YELLOW); Glucose Urine UA NEGATIVE (NEGATIVE); Ketones Urine NEGATIVE (NEGATIVE); Leukocyte Esterase Urine NEGATIVE (NEGATIVE); Nitrite Urine NEGATIVE (NEGATIVE); Protein Urine NEGATIVE (NEG/TRACE); Urobilinogen Urine 0.2 EU/dL (0.2-1.0); pH Urine 6.5 (5.0-9.0)
[2025-02-23 12:19] LABS: Bacteria Urine TRACE #/HPF (NONE SEEN); Mucus Urine SMALL (NONE SEEN); RBC Urine 0-2 #/HPF (0-2); WBC Urine 0-2 #/HPF (NONE SEEN)
[2025-02-23 12:20] LABS: Cast Seen? NONE SEEN #/LPF (NONE SEEN); Crystals Seen? None Seen #/HPF (None Seen); Squamous Epithelial Cell Urine RARE #/LPF (NONE/RARE); Urine Culture Indicated NO
[2025-02-23 12:21] LABS: Alanine Aminotransferase 23 U/L (16-63); Albumin Globulin Ratio 0.9; Albumin Level 3.2 g/dL (3.4-5.0); Alkaline Phosphatase 82 U/L (46-116); Anion Gap 10.4; Aspartate Amino Transferase 21 U/L (15-37); BUN Creatinine Ratio 24.7; Bilirubin Total 0.7 mg/dL (0.2-1.0); Calcium 9.1 mg/dL (8.5-10.1); Carbon Dioxide 30.9 mmol/L (21.0-32.0); Chloride 104 mmol/L (98-107); Estimated GFR (African America >60 (>=60 mL/min/1.73m^2); Estimated GFR (Non-African Ame >60 (>=60 mL/min/1.73m^2); Globulin 3.6 g/dL; Glucose 108 mg/dL (74-106); Magnesium 1.7 mg/dL (1.8-2.4); Potassium 3.3 mmol/L (3.5-5.1); Sodium 142 mmol/L (136-145); Total Protein 6.8 g/dL (6.4-8.2)
[2025-02-23] MEDS: 0.9 % SODIUM CHLORIDE 1,000 ML 999 ML IV (12:22)
[2025-02-23] MEDS: PROMETHAZINE HCL 25 MG TABLET PO (15:08)
[2025-02-23] MEDS: ONDANSETRON PF 4 MG/2 ML VIAL IV (15:08)
--- OUTSIDE RECORDS SUMMARY | 2025-02-23 16:04 | XMS_ITS | CCD ---
Author Organization [facility] Care Team Providers Care Cigar Packing Examiner Name Role Phone Bryan Quick Attending Provider [phone] AICHMACIEL KATHIE J Primary Care Physician [phone] AICHHOLZ, SEASONAL CUSTOMER SERVICE ASSOCIATE KATHIE Primary Care Unavailable DR LEONOR MA Consulting Unavailable SAMSA ., ROBERTO Admitting Unavailable SAMSA ., ROBERTO Attending Unavailable SAMSA ., ROBERTO Consulting Unavailable AICHHOLZ, SEASONAL CUSTOMER SERVICE ASSOCIATE KATHIE Admitting Unavailable AICHHOLZ, SEASONAL CUSTOMER SERVICE ASSOCIATE KATHIE Attending Unavailable AICHHOLZ, SEASONAL CUSTOMER SERVICE ASSOCIATE KATHIE Consulting Unavailable AICHHOLZ, SEASONAL CUSTOMER SERVICE ASSOCIATE KATHEI Primary Care Unavailable AICHHOLZ, SEASONAL CUSTOMER SERVICE ASSOCIATE KATHIE Admitting Unavailable AICHHOLZ, SEASONAL CUSTOMER SERVICE ASSOCIATE KATHIE Primary Care Unavailable AICHHOLZ, SEASONAL CUSTOMER SERVICE ASSOCIATE KATHIE Attending Unavailable AICHHOLZ, SEASONAL CUSTOMER SERVICE ASSOCIATE KATHIE Consulting Unavailable AICHHOLZ, SEASONAL CUSTOMER SERVICE ASSOCIATE KATHIE Primary Care Unavailable DR LEONOR MA Consulting Unavailable SAMSA ., ROBERTO Admitting Unavailable SAMSA ., ROBERTO Attending Unavailable SAMSA ., ROBERTO Consulting Unavailable DR LEONOR MA Consulting Unavailable SAMSA ., ROBERTO Admitting Unavailable SAMSA ., ROBERTO Attending Unavailable SAMSA ., ROBERTO Consulting Unavailable DR ELSA NOBLE Admitting Unavailable DR OK CISNEROS V Consulting Unavailable AICHHOLZ, SEASONAL CUSTOMER SERVICE ASSOCIATE KATHIE Primary Care Unavailable DR ELSA NOBLE Attending Unavailable DR ELSA NOBLE Consulting Unavailable SAMSA ., ROBERTO Admitting Unavailable AICHHOLZ, SEASONAL CUSTOMER SERVICE ASSOCIATE KATHIE Primary Care Unavailable SAMSA ., ROBERTO Attending Unavailable SAMSA ., ROBERTO Consulting Unavailable SAMSA ., ROBERTO Admitting Unavailable AICHHOLZ, SEASONAL CUSTOMER SERVICE ASSOCIATE KATHIE Primary Care Unavailable DR LEONOR MA Consulting Unavailable SAMSA ., ROBERTO Attending Unavailable SAMSA ., ROBERTO Consulting Unavailable Aichholz OIL WELL FISHING TOOL TECHNICIAN, Kathie Unavailable Lanre CHANDLER, Curt Primary Care Provider VORARufina R Attending Unavailable VORA, Rufina R Attending Unavailable VORA, Rufina R Attending Unavailable VORA, Rufina R Attending Unavailable VORA, Rufina R Admitting Unavailable VORA, Rufina R Referring Unavailable VORA, Rufina R Attending Unavailable Bhat DO, Peter Cruz Primary Care Provider Aichholz SEASONAL CUSTOMER SERVICE ASSOCIATE, Kathie Rosen Primary Care Provider Bhat DO, Peter Cruz Primary Care Provider Aichholz OIL WELL FISHING TOOL TECHNICIAN, Kathie Unavailable Aichholz OIL WELL FISHING TOOL TECHNICIAN, Kathie Unavailable Lanre CHANDLER, Curt Primary Care Provider [phone] Aichholz OIL WELL FISHING TOOL TECHNICIAN, Kathie Unavailable Umu Schultz Unavailable Unavailable [...] Medication Allergies] Propensity to adverse reactions (disorder) [facility] Repository Medications Current Medications Medication Drug Class(es) Dates Sig (Normalized) Sig (Original) acetaminophen 325 mg / HYDROcodone bitartrate 5 mg oral tablet (3 sources) Opioid Agonist Start: 12-05-2024 HYDROcodone-aceta minophen ([place]) 5-325 MG tablet 12/05/2024 Active albuterol 0.83 [...] 08/05/22 Status: Ordered take 1 capsule by [facility] three times daily as needed for [...] 05/17/22 Status: Ordered take 1 capsule by [facility] every twenty-four hours in the morning [...] before meals. 90 tablet 1 10/16/2024 Active Selswqqljef-Gomxsamc-Sgthayd ac 1-0.5-0.075 % solution (4 sources) Start: 01-02-2025 Awcfujrtpet-Tqnzwdaa-Pbavowk ac 1-0.5-0.075 % solution Indications: Age-related nuclear [...] mL, Rectal, Once, 133 mL, Refill(s) 0, [facility]/pharmacy #[id number], 175, cm, 01/02/24 12:45:00 EST, [...] 02-28-2024 02-28-2024 Other aftercare (1 source) Other chcf (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 therapy; Translations: [OTH INTENSIVE CARE ANAESTHETIST CURRENT DRUG THERAPY] Onset: 08-13-2022 Episodic Other [...] Facility XR Hip - right [address] [place] [address] XRay Report Signed Patient: AMTEO STEARNS MR#: [id number] : 1960 Acct:[id number] Age/Sex: 64 / M ADM Date: 02/11/25 Loc: EC Attending Dr: Leonor Mart M.D. Ordering Physician: Leonor Mart M.D. Date of Service: 02/11/25 Procedure(s): XR hip RT 2V w/ pelvis Accession Number(s): [id number] cc: Kathie Sánchez OIL WELL FISHING TOOL TECHNICIAN; Leonor Mart M.D. [place] [id number] Patient Name: MATEO STEARNS MRN: [id number] date: 1960 Sex: M Assigned Patient Location: Current Patient Location: Accession/Order Number: [id number] Exam Date: 02/11/2025 12:31 Report Date: 02/11/2025 [...] Cummings Jr., D.O.02/11/2025 12:34 PM Dictation Location: [place] [address] Electronically authenticated by: [id number] Y Date: 02/11/2025 12:34 Dictated By: Bobby Cummings M.D. Signed By: 02/11/25 1236 DD/ 1234 TD/TT: Fruit Trimmer: [facility] Radiology, Radiologist, - 02/11/2025 [place] [address] XRay Report Signed Patient: MATEO STEARNS MR#: [id number] : 1960 Acct:[id number] Age/Sex: 64 / M ADM Date: 02/11/25 Loc: Attending Dr: Leonor Mart M.D. Ordering Physician: Leonor Mart M.D. Date of Service: 02/11/25 Procedure(s): XR hip RT 2V w/ pelvis Accession Number(s): [id number] cc: Kathie Sánchez OIL WELL FISHING TOOL TECHNICIAN; Leonor Mart M.D. The [address] [address] Patient Name: MATEO STEARNS MRN: [facility]:[id number] date: 1960 Sex: M Assigned Patient Location: Current Patient Location: Accession/Order Number: [id number] Exam Date: 02/11/2025 12:31 Report Date: 02/11/2025 [...] Cummings Jr., D.O.02/11/2025 12:34 PM Dictation Location: [place] [address] Electronically authenticated by: [id number] Y Date: 02/11/2025 12:34 Dictated By: Bobyb Cummings M.D. Signed By: 02/11/25 1236 DD/ 1234 TD/TT: Fruit Trimmer: [facility] Radiology Study observation (narrative) [facility] XR Hip - right 3 ViewsOrdere d By: Radiologist Radiology on 02-11-2025 [facility] Work Phone: US Eye+Orbit - bilateralon 0 01-02-2025 Diagnosis: Cataract both eyes (OU) Testing Indication: Performed for preop measurements in the determination of an intraocular lens (IOL) for both eyes (OU) Test Reliability: Good quality both eyes (OU) Interpretation: Good measurements for intraocular lens (IOL) calculation purposes. Calculation made for both eyes (OU). [facility] Radiology Study observation (narrative) [facility] MHPT PSA, DIAGNOSTICon 12-05 Interpretation and review of laboratory results Abnormal [facility] PROSTATE SPECIFIC ANTIGEN DX 4.2 ng/mL High NINF - 4.00 ng/mL [facility] No Panel Informationon 12-05 [facility] CNOVon 11-02-2024 CNOV Office Visit (RADTSA ) MATEO STEARNS ([id number]) 1960 M Date Time Provider Department 11/02/24 10:30 AM Severo DENT During your visit today, we recorded the following information about you: Temperature Pulse Respiration Blood pressure 98.4 degrees 100/minute 18/minute 118/82 Severo Dent MD 11/09/2024 11:44 AM Signed Radiation Oncology - On Treatment Review (OTR) Note PATIENT NAME: Mateo Stearns PATIENT DIAGNOSIS: Prostate adenocarcinoma, initial PSA 4.46, biopsy Attapulgus score 3 + 3 = 6 (grade [...] Order(s):PROSTATE-SPE CIFIC ANTIGEN DIAGNOSTIC [SQPSA] Order #: [id number] FUTURE Prescriptions as of 11/09/2024 - predniSONE [...] Encounter Status:Closed by Severo DENT on 11/09/24 [facility] [place] 10-29-2024 CNOV Office Visit (RADTSA ) MATEO STEARNS ([id number]) 1960 M Date Time Provider Department 10/29/24 [...] Encounter Status:Closed by Severo DENT on 12/2/24 [facility] CNOVon 10-22-2024 CNOV Office Visit (RADTSA ) MATEO STEARNS ([id number]) 1960 M Date Time Provider Department 10/22/24 10:30 AM Severo DENT RADTSA During your visit today, we recorded the following information about you: Temperature Pulse Respiration Blood pressure 97.1 degrees 71/minute 18/minute 127/81 Weight 67.6 kg Severo Dent MD 10/22/2024 10:51 AM Signed Radiation Oncology - On Treatment Review (OTR) Note PATIENT NAME: Mateo Stearns PATIENT DIAGNOSIS: Prostate adenocarcinoma, initial PSA 4.46, biopsy Attapulgus score 3 + 3 = 6 (grade [...] Encounter Status:Closed by Severo DENT on 10/22/24 [facility] CNOVon 10-15-2024 CNOV Office Visit (RADTSA ) JINNYMATEO MARSHALL ([id number]) 1960 M Date Time Provider Department 10/15/24 10:30 AM Severo DENT RADTSA During your visit today, we recorded the following information about you: Temperature Pulse Respiration Blood pressure 97.8 degrees 87/minute 16/minute 121/81 Weight 67.9 kg Severo Dent MD 10/15/2024 3:22 PM Signed Radiation Oncology - On Treatment Review (OTR) Note PATIENT NAME: Mateo Stearns PATIENT DIAGNOSIS: Prostate adenocarcinoma, initial PSA 4.46, biopsy Attapulgus score 3 + 3 = 6 (grade [...] Status:Closed by Severo DENT on 10/15/24 Normal [facility] CBC W Auto Differential pane l (Bld)on 10-11-2024 Basophils (Bld) [#/Vol] 0.04 10*3/uL [place] Differential cell count method Nom (Bld) Auto [facility] Eosinophils (Bld) [#/Vol] 0.07 10*3/uL [place] Immature granulocytes (Bld) [#/Vol] 0.16 10*3/uL High [place] Immature granulocytes/100 WBC (Bld) 1.1 % [facility] Lymphocytes (Bld) [#/Vol] 1.10 10*3/uL [facility] Monocytes (Bld) [#/Vol] 0.45 10*3/uL [place] Neutrophils (Bld) [#/Vol] 12.30 10*3/uL [facility] Nucleated RBC (Bld) [#/Vol] [place] Nucleated RBC/100 WBC (Bld) [Ratio] 0.0 % /100 WBC [facility] Platelet mean volume (Bld) [Entitic vol] 8.6 fL Low 9.0 - 12.7 fL [facility] Platelets (Bld) [#/Vol] 317 10*3/uL [facility] WBC (Bld) [#/Vol] 14.12 10*3/uL High [facility] Basophils (Bld) [#/Vol] 0.04 10*3/uL Normal <0.11 [facility] Comment on above: Order Comment: Speci men Type: BLOOD SPECIMENOrdering Facility: [facility] Address: [address] [place] [address] Performed By: #### 5 7021-8 ####[facility] LABCLIA [id number] [place] [address] Basophils/100 WBC (Bld) 0.3 % Normal [facility] Comment on above: Order Comment: Speci men Type: BLOOD SPECIMENOrdering Facility: [facility] Address: [address] [place] [address] Performed By: #### 5 7021-8 ####[facility] LABCLIA [id number] [place] [address] Differential cell count method Nom (Bld) Auto Normal [facility] Comment on above: Order Comment: Speci men Type: BLOOD SPECIMENOrdering Facility: [facility] Address: [address] [place] [address] Performed By: #### 5 7021-8 ####[facility] LABCLIA [id number] [place] [address] Eosinophils (Bld) [#/Vol] 0.07 10*3/uL Normal <0.46 [facility] Comment on above: Order Comment: Speci men Type: BLOOD SPECIMENOrdering Facility: [facility] Address: [address] [place] [address] Performed By: #### 5 7021-8 ####[facility] LABCLIA [id number] [place] [address] Eosinophils/100 WBC (Bld) 0.5 % Normal [facility] Comment on above: Order Comment: Speci men Type: BLOOD SPECIMENOrdering Facility: [facility] Address: [address] [place] [address] Performed By: #### 5 7021-8 ####[facility] LABCLIA [id number] [place] [address] Erythrocyte distribution width (RBC) [Ratio] 13.6 % Normal 11.5-15.0 [facility] Comment on above: Order Comment: Speci men Type: BLOOD SPECIMENOrdering Facility: [facility] Address: [address] [place] [address] Performed By: #### 5 7021-8 ####[facility] LABCLIA [id number] [place] [address] Hematocrit (Bld) [Volume fraction] 43.8 % Normal 39.0-51.0 [facility] Comment on above: Order Comment: Speci men Type: BLOOD SPECIMENOrdering Facility: [facility] Address: [address] [place] [address] Performed By: #### 5 7021-8 ####[facility] LABCLIA [id number] [place] [address] Hemoglobin (Bld) [Mass/Vol] 14.8 g/dL Normal 13.0-17.0 [facility] Comment on above: Order Comment: Speci men Type: BLOOD SPECIMENOrdering Facility: [facility] Address: [address] [place] [address] Performed By: #### 5 7021-8 ####[facility] LABCLIA [id number] [place] [address] Immature granulocytes (Bld) [#/Vol] 0.16 10*3/uL High <0.10 [facility] Comment on above: Order Comment: Speci men Type: BLOOD SPECIMENOrdering Facility: [facility] Address: [address] [place] [address] Performed By: #### 5 7021-8 ####[facility] LABCLIA [id number] [place] [address] Immature granulocytes/100 WBC (Bld) 1.1 % Normal [facility] Comment on above: Order Comment: Speci men Type: BLOOD SPECIMENOrdering Facility: [facility] Address: [address] [place] [address] Performed By: #### 5 7021-8 ####[facility] LABCLIA [id number] [place] [address] Lymphocytes (Bld) [#/Vol] 1.10 10*3/uL Normal 1.00-4.00 [facility] Comment on above: Order Comment: Speci men Type: BLOOD SPECIMENOrdering Facility: [facility] Address: [address] [place] [address] Performed By: #### 5 7021-8 ####[facility] LABCLIA [id number] [place] [address] Lymphocytes/100 WBC (Bld) 7.8 % Normal [facility] Comment on above: Order Comment: Speci men Type: BLOOD SPECIMENOrdering Facility: [facility] Address: [address] [place] [address] Performed By: #### 5 7021-8 ####[facility] LABCLIA [id number] [place] [address] MCH (RBC) [Entitic mass] 30.4 pg Normal 26.0-34.0 [facility] Comment on above: Order Comment: Speci men Type: BLOOD SPECIMENOrdering Facility: [facility] Address: [address] [place] [address] Performed By: #### 5 7021-8 ####[facility] LABCLIA [id number] [place] [address] MCHC (RBC) [Mass/Vol] 33.8 g/dL Normal 30.5-36.0 [facility] Comment on above: Order Comment: Speci men Type: BLOOD SPECIMENOrdering Facility: [facility] Address: [address] [place] [address] Performed By: #### 5 7021-8 ####[facility] LABCLIA [id number] [place] [address] MCV (RBC) [Entitic vol] 89.9 fL Normal 80.0-100.0 [facility] Comment on above: Order Comment: Speci men Type: BLOOD SPECIMENOrdering Facility: [facility] Address: [address] [place] [address] Performed By: #### 5 7021-8 ####[facility] LABCLIA [id number] [place] [address] Monocytes (Bld) [#/Vol] 0.45 10*3/uL Normal <0.87 [facility] Comment on above: Order Comment: Speci men Type: BLOOD SPECIMENOrdering Facility: [facility] Address: [address] [place] [address] Performed By: #### 5 7021-8 ####[facility] LABCLIA [id number] [place] [address] Monocytes/100 WBC (Bld) 3.2 % Normal [facility] Comment on above: Order Comment: Speci men Type: BLOOD SPECIMENOrdering Facility: [facility] Address: [address] [place] [address] Performed By: #### 5 7021-8 ####[facility] LABCLIA [id number] [place] [address] Neutrophils (Bld) [#/Vol] 12.30 10*3/uL High 1.45-7.50 [facility] Comment on above: Order Comment: Speci men Type: BLOOD SPECIMENOrdering Facility: [facility] Address: [address] [place] [address] Performed By: #### 5 7021-8 ####[facility] LABCLIA [id number] [place] [address] Neutrophils/100 WBC (Bld) 87.1 % Normal [facility] Comment on above: Order Comment: Speci men Type: BLOOD SPECIMENOrdering Facility: [facility] Address: [address] [place] [address] Performed By: #### 5 7021-8 ####[facility] LABCLIA [id number] [place] [address] Nucleated RBC (Bld) [#/Vol] 10*3/uL Normal <0.01 [facility] Comment on above: Order Comment: Speci men Type: BLOOD SPECIMENOrdering Facility: [facility] Address: [address] [place] [address] Performed By: #### 5 7021-8 ####[facility] LABCLIA [id number] [place] [address] Nucleated RBC/100 WBC (Bld) [Ratio] 0.0 /100 WBC Normal [facility] Comment on above: Order Comment: Speci men Type: BLOOD SPECIMENOrdering Facility: [facility] Address: [address] [place] [address] Performed By: #### 5 7021-8 ####[facility] LABCLIA [id number] [place] [address] Platelet mean volume (Bld) [Entitic vol] 8.6 fL Low 9.0-12.7 [facility] Comment on above: Order Comment: Speci men Type: BLOOD SPECIMENOrdering Facility: [facility] Address: [address] [place] [address] Performed By: #### 5 7021-8 ####[facility] LABIA [id number] [place] [address] Platelets (Bld) [#/Vol] 317 10*3/uL Normal 150-400 [facility] Comment on above: Order Comment: Speci men Type: BLOOD SPECIMENOrdering Facility: [facility] Address: [address] [place] [address] Performed By: #### 5 7021-8 ####[facility] LABIA [id number] [place] [address] RBC (Bld) [#/Vol] 4.87 10*6/uL Normal 4.20-6.00 [facility] Comment on above: Order Comment: Speci men Type: BLOOD SPECIMENOrdering Facility: [facility] Address: [address] [place] [address] Performed By: #### 5 7021-8 ####[facility] LABCLIA [id number] [place] [address] WBC (Bld) [#/Vol] 14.12 10*3/uL High 3.70-11.00 [facility] Comment on above: Order Comment: Speci men Type: BLOOD SPECIMENOrdering Facility: [facility] Address: [address] [place] [address] [place] [address] Performed By: #### 5 7021-8 ####[facility] LABCLIA [id number] [place] [address] [facility] CBC W AUTO DIFF BLDon [facility] BASOPHILS # BLD AUTO 0.04 [facility] DIFFERENTIAL METHOD BLD Auto [facility] EOSINOPHIL # BLD AUTO 0.07 [facility] LYMPHOCYTES # BLD AUTO 1.1 [facility] MONOCYTES # BLD AUTO 0.45 [facility] NEUTROPHILS # BLD AUTO 12.3 High [facility] NRBC # BLD AUTO <0.01 [facility] Center Specimen Type: BLOOD SPECIMEN Ordering Facility: [facility] Address: [address] [place] [address] Original Ordering Provider: Severo Mohan 10-11-2024 CNOV Office Visit (RADTSA ) MATEO STEARNS ([id number]) 1960 M Date Time Provider Department 10/11/24 [...] and left the department without assist. Dayanna Clal LPN Referring Provider: Severo DENT [[id number]] Allergies As of Date: 10/11/2024 (No Known Allergies) Date Reviewed: 10/01/2024 Reviewed by: Mona Melvin RN - Fully Assessed Visit Diagnosis:Malignant neoplasm of prostate (HCC) [C61] Order(s):COMPLETE BLOOD COUNT AND DIFFERENTIAL [SQCBCDIF] Order #: [id number]. #:[id number] Prescriptions as of 10/11/2024 - predniSONE (DELTASONE) [...] 06/24/2024 Visit Notes: >> Dayanna Call LPN [facility] Oct 11, 2024 10:55 AM Status: Signed [...] Status:Closed by DAYANNA CALL on 10/11/24 Normal [facility] Laboratory - Hematology and Cell countson 10-11-2024 Basophils/100 WBC (Bld) 0.3 % [facility] Eosinophils/100 WBC (Bld) 0.5 % [facility] Erythrocyte distribution width (RBC) [Ratio] 13.6 % 11.5 - 15.0 % [facility] Hematocrit (Bld) [Volume fraction] 43.8 % 39.0 - 51.0 % [facility] Hemoglobin (Bld) [Mass/Vol] 14.8 g/dL 13.0 - 17.0 g/dL [facility] Lymphocytes/100 WBC (Bld) 7.8 % [facility] MCH (RBC) [Entitic mass] 30.4 pg 26.0 - 34.0 pg [facility] MCHC (RBC) [Mass/Vol] 33.8 g/dL 30.5 - 36.0 g/dL [facility] MCV (RBC) [Entitic vol] 89.9 fL 80.0 - 100.0 fL [facility] Monocytes/100 WBC (Bld) 3.2 % [facility] Neutrophils/100 WBC (Bld) 87.1 % [facility] RBC (Bld) [#/Vol] 4.87 10*6/uL 4.20 - 6.0 0 m/uL [facility] No Panel Informationon 10-11 Interpretation and review of laboratory results Abnormal [facility] CNOVon 10-08-2024 CNOV Office Visit (RADTSA ) JINNYMATEO ([id number]) 1960 M Date Time Provider Department 10/08/24 [...] BLOOD COUNT AND DIFFERENTIAL [SQCBCDIF] Order #: [id number] FUTURE Prescriptions as of 10/08/2024 - predniSONE [...] Status:Closed by Severo DENT on 10/08/24 Normal [facility] CBC W Auto Differential pane l (Bld)on 10-04-2024 Basophils (Bld) [#/Vol] 0.03 10*3/uL [place] Differential cell count method Nom (Bld) Auto [facility] Eosinophils (Bld) [#/Vol] [place] Eosinophils/100 WBC (Bld) 0.0 % [facility] Hemoglobin (Bld) [Mass/Vol] 15.0 g/dL 13.0 - 17.0 g/dL [facility] Immature granulocytes (Bld) [#/Vol] 0.10 10*3/uL High [place] Immature granulocytes/100 WBC (Bld) 0.9 % [facility] Lymphocytes (Bld) [#/Vol] 1.30 10*3/uL [facility] Monocytes (Bld) [#/Vol] 0.40 10*3/uL [place] Neutrophils (Bld) [#/Vol] 9.47 10*3/uL High [facility] Nucleated RBC (Bld) [#/Vol] [place] Nucleated RBC/100 WBC (Bld) [Ratio] 0.0 % /100 WBC [facility] Platelet mean volume (Bld) [Entitic vol] 8.6 fL Low 9.0 - 12.7 fL [facility] Platelets (Bld) [#/Vol] 330 10*3/uL [facility] WBC (Bld) [#/Vol] 11.30 10*3/uL High [facility] Basophils (Bld) [#/Vol] 0.03 10*3/uL Normal <0.11 [facility] Comment on above: Order Comment: Speci men Type: BLOOD SPECIMENOrdering Facility: [facility] Address: [address] [place] [address] Performed By: #### 5 7021-8 ####[facility] LABCLIA [id number] [place] [address] Basophils/100 WBC (Bld) 0.3 % Normal [facility] Comment on above: Order Comment: Speci men Type: BLOOD SPECIMENOrdering Facility: [facility] Address: [address] [place] [address] Performed By: #### 5 7021-8 ####[facility] LABCLIA [id number] [place] [address] Differential cell count method Nom (Bld) Auto Normal [facility] Comment on above: Order Comment: Speci men Type: BLOOD SPECIMENOrdering Facility: [facility] Address: [address] [place] [address] Performed By: #### 5 7021-8 ####[facility] LABCLIA [id number] [place] [address] Eosinophils (Bld) [#/Vol] 10*3/uL Normal <0.46 [facility] Comment on above: Order Comment: Speci men Type: BLOOD SPECIMENOrdering Facility: [facility] Address: [address] [place] [address] Performed By: #### 5 7021-8 ####[facility] LABCLIA [id number] [place] [address] Eosinophils/100 WBC (Bld) 0.0 % Normal [facility] Comment on above: Order Comment: Speci men Type: BLOOD SPECIMENOrdering Facility: [facility] Address: [address] [place] [address] Performed By: #### 5 7021-8 ####[facility] LABCLIA [id number] [place] [address] Erythrocyte distribution width (RBC) [Ratio] 13.5 % Normal 11.5-15.0 [facility] Comment on above: Order Comment: Speci men Type: BLOOD SPECIMENOrdering Facility: [facility] Address: [address] [place] [address] Performed By: #### 5 7021-8 ####[facility] LABCLIA [id number] [place] [address] Hematocrit (Bld) [Volume fraction] 43.9 % Normal 39.0-51.0 [facility] [facility] Comment on above: Order Comment: Speci men Type: BLOOD SPECIMENOrdering Facility: [facility] Address: [address] [place] [address] Performed By: #### 5 7021-8 ####[facility] LABCLIA [id number] [place] [address] Hemoglobin (Bld) [Mass/Vol] 15.0 g/dL Normal 13.0-17.0 [facility] Comment on above: Order Comment: Speci men Type: BLOOD SPECIMENOrdering Facility: [facility] Address: [address] [place] [address] Performed By: #### 5 7021-8 ####[facility] LABCLIA [id number] [place] [address] Immature granulocytes (Bld) [#/Vol] 0.10 10*3/uL High <0.10 [facility] Comment on above: Order Comment: Speci men Type: BLOOD SPECIMENOrdering Facility: [facility] Address: [address] [place] [address] Performed By: #### 5 7021-8 ####[facility] LABCLIA [id number] [place] [address] Immature granulocytes/100 WBC (Bld) 0.9 % Normal [facility] Comment on above: Order Comment: Speci men Type: BLOOD SPECIMENOrdering Facility: [facility] Address: [address] [place] [address] Performed By: #### 5 7021-8 ####[facility] LABCLIA [id number] [place] [address] Lymphocytes (Bld) [#/Vol] 1.30 10*3/uL Normal 1.00-4.00 [facility] Comment on above: Order Comment: Speci men Type: BLOOD SPECIMENOrdering Facility: [facility] Address: [address] [place] [address] Performed By: #### 5 7021-8 ####[facility] LABCLIA [id number] [place] [address] Lymphocytes/100 WBC (Bld) 11.5 % Normal [facility] Comment on above: Order Comment: Speci men Type: BLOOD SPECIMENOrdering Facility: [facility] Address: [address] [place] [address] Performed By: #### 5 7021-8 ####[facility] LABCLIA [id number] [place] [address] MCH (RBC) [Entitic mass] 30.5 pg Normal 26.0-34.0 [facility] Comment on above: Order Comment: Speci men Type: BLOOD SPECIMENOrdering Facility: [facility] Address: [address] [place] [address] Performed By: #### 5 7021-8 ####[facility] LABCLIA [id number] [place] [address] MCHC (RBC) [Mass/Vol] 34.2 g/dL Normal 30.5-36.0 [facility] Comment on above: Order Comment: Speci men Type: BLOOD SPECIMENOrdering Facility: [facility] Address: [address] [place] [address] Performed By: #### 5 7021-8 ####[facility] LABCLIA [id number] [place] [address] MCV (RBC) [Entitic vol] 89.2 fL Normal 80.0-100.0 [facility] Comment on above: Order Comment: Speci men Type: BLOOD SPECIMENOrdering Facility: [facility] Address: [address] [place] [address] Performed By: #### 5 7021-8 ####[facility] LABCLIA [id number] [place] [address] Monocytes (Bld) [#/Vol] 0.40 10*3/uL Normal <0.87 [facility] Comment on above: Order Comment: Speci men Type: BLOOD SPECIMENOrdering Facility: [facility] Address: [address] [place] [address] Performed By: #### 5 7021-8 ####[facility] LABCLIA [id number] [place] [address] Monocytes/100 WBC (Bld) 3.5 % Normal [facility] Comment on above: Order Comment: Speci men Type: BLOOD SPECIMENOrdering Facility: [facility] Address: [address] [place] [address] Performed By: #### 5 7021-8 ####[facility] LABCLIA [id number] [place] [address] Neutrophils (Bld) [#/Vol] 9.47 10*3/uL High 1.45-7.50 [facility] Comment on above: Order Comment: Speci men Type: BLOOD SPECIMENOrdering Facility: [facility] Address: [address] [place] [address] Performed By: #### 5 7021-8 ####[facility] LABCLIA [id number] [place] [address] Neutrophils/100 WBC (Bld) 83.8 % Normal [facility] Comment on above: Order Comment: Speci men Type: BLOOD SPECIMENOrdering Facility: [facility] Address: [address] [place] [address] Performed By: #### 5 7021-8 ####[facility] LABCLIA [id number] [place] [address] Nucleated RBC (Bld) [#/Vol] 10*3/uL Normal <0.01 [facility] Comment on above: Order Comment: Speci men Type: BLOOD SPECIMENOrdering Facility: [facility] Address: [address] [place] [address] Performed By: #### 5 7021-8 ####[facility] LABCLIA [id number] [place] [address] Nucleated RBC/100 WBC (Bld) [Ratio] 0.0 /100 WBC Normal [facility] Comment on above: Order Comment: Speci men Type: BLOOD SPECIMENOrdering Facility: [facility] Address: [address] [place] [address] Performed By: #### 5 7021-8 ####[facility] LABIA [id number] [place] [address] Platelet mean volume (Bld) [Entitic vol] 8.6 fL Low 9.0-12.7 [facility] Comment on above: Order Comment: Speci men Type: BLOOD SPECIMENOrdering Facility: [facility] Address: [address] [place] [address] Performed By: #### 5 7021-8 ####[facility] LABCLIA [id number] [place] [address] Platelets (Bld) [#/Vol] 330 10*3/uL Normal 150-400 [facility] Comment on above: Order Comment: Speci men Type: BLOOD SPECIMENOrdering Facility: [facility] Address: [address] [place] [address] Performed By: #### 5 7021-8 ####[facility] LABCLIA [id number] [place] [address] RBC (Bld) [#/Vol] 4.92 10*6/uL Normal 4.20-6.00 [facility] Comment on above: Order Comment: Speci men Type: BLOOD SPECIMENOrdering Facility: [facility] Address: [address] [place] [address] Performed By: #### 5 7021-8 ####[facility] LABCLIA [id number] [place] [address] WBC (Bld) [#/Vol] 11.30 10*3/uL High 3.70-11.00 [facility] Comment on above: Order Comment: Speci men Type: BLOOD SPECIMENOrdering Facility: [facility] Address: [address] [place] [address] Performed By: #### 5 7021-8 ####[facility] LABCLIA [id number] [place] [address] [facility] CBC W AUTO DIFF BLDon [facility] BASOPHILS # BLD AUTO 0.03 [facility] DIFFERENTIAL METHOD BLD Auto [facility] EOSINOPHIL # BLD AUTO <0.03 [facility] LYMPHOCYTES # BLD AUTO 1.3 [facility] MONOCYTES # BLD AUTO 0.4 [facility] NEUTROPHILS # BLD AUTO 9.47 [facility] NRBC # BLD AUTO <0.01 [facility] [...] Healthcare Specimen Type: BLOOD SPECIMEN [facility] Address: [address], [place] [id number] Original Ordering Provider: Severo Mohan 10-04-2024 CNOV Office Visit (RADTSA ) MATEO STEARNS ([id number]) 1960 M Date Time Provider Department 10/04/24 [...] BLOOD COUNT AND DIFFERENTIAL [SQCBCDIF] Order #: [id number]. #:[id number] Prescriptions as of 10/04/2024 - predniSONE (DELTASONE) [...] 06/24/2024 Visit Notes: >> Dayanna Call LPN [facility] Oct 04, 2024 3:20 PM Status: Signed [...] Status:Closed by DAYANNA CALL on 10/04/24 Normal [facility] Laboratory - Hematology and Cell countson 10-04-2024 Basophils/100 WBC (Bld) 0.3 % [facility] Erythrocyte distribution width (RBC) [Ratio] 13.5 % 11.5 - 15.0 % [facility] Hematocrit (Bld) [Volume fraction] 43.9 % 39.0 - 51.0 % [facility] Lymphocytes/100 WBC (Bld) 11.5 % [facility] MCH (RBC) [Entitic mass] 30.5 pg 26.0 - 34.0 pg [facility] MCHC (RBC) [Mass/Vol] 34.2 g/dL 30.5 - 36.0 g/dL [facility] MCV (RBC) [Entitic vol] 89.2 fL 80.0 - 100.0 fL [facility] Monocytes/100 WBC (Bld) 3.5 % [facility] Neutrophils/100 WBC (Bld) 83.8 % [facility] RBC (Bld) [#/Vol] 4.92 10*6/uL 4.20 - 6.0 0 m/uL [facility] No Panel Informationon 10-04 Interpretation and review of laboratory results Abnormal [facility] CNOVon 10-01-2024 CNOV Office Visit (RADTSA ) JINNYMATEO MARSHALL ([id number]) 1960 M Date Time Provider Department 10/01/24 10:30 AM Severo DENT During your visit today, we recorded the following information about you: Temperature Pulse Respiration Blood pressure 97.9 degrees 99/minute 18/minute 129/83 Weight 67.6 kg Severo Dent MD 10/01/2024 10:51 AM Signed Radiation Oncology - On Treatment Review (OTR) Note PATIENT NAME: Mateo Stearns PATIENT DIAGNOSIS: Prostate adenocarcinoma, initial PSA 4.46, biopsy Attapulgus score 3 + 3 = 6 (grade [...] Encounter Status:Closed by Severo DENT on 10/01/24 [facility] CNOVon 09-25-2024 CNOV Office Visit (RADTSA ) MATEO STEARNS ([id number]) 1960 M Date Time Provider Department 09/25/24 2:00 PM Severo DENT [facility] During your visit today, we recorded the following information about you: Weight 67.1 kg Severo Dent MD 09/26/2024 4:56 PM Signed Radiation Oncology - On Treatment Review (OTR) Note PATIENT NAME: Mateo Stearns PATIENT DIAGNOSIS: Prostate adenocarcinoma, initial PSA 4.46, biopsy Attapulgus score 3 + 3 = 6 (grade [...] Severo Dent MD Referring Provider: Severo DENT [[id number]] Allergies As of Date: 09/25/2024 (No Known [...] Encounter Status:Closed by Severo DENT on 09/26/24 [facility] 09-24-2024 [facility] Telephone (NavPrescienceA) MATEO STEARNS ([id number]) 1960 M Date Time Provider Department 09/24/24 Severo DENT [facility] During your visit today, we [...] BLOOD COUNT AND DIFFERENTIAL [SQCBCDIF] Order #: [id number] FUTURE Prescriptions as of 09/24/2024 - predniSONE [...] Encounter Status:Closed by DAYANNA CALL on 09/24/24 [facility] 09-17-2024 CNOV Office Visit (RADTSA ) MATEO STEARNS ([id number]) 1960 Date Time Provider Department 09/17/24 11:45 AM Severo DENT During your visit today, we recorded the following information about you: Referring Provider: Severo DENT [[id number]] Allergies As of Date: 09/17/2024 (No Known Allergies) Date Reviewed: 09/11/2024 Reviewed by: Dayanna Call LPN - Fully Assessed Reason for Visit: Simulation Request Form [4065] Primary Visit Diagnosis:Malignant neoplasm of prostate (HCC) [C61] Order(s):RADIATION TREATMENT PER RADIATION ONCOLOGIST PLAN [[id number]] Order #: [id number]: 1 PT ED CANCER [[id number]] Order #: [id number]: 1 CT SIM PLANNING RADIATION ONCOLOGY [[id number]] Order #: [id number] Prescriptions as of 09/17/2024 - predniSONE (DELTASONE) [...] Encounter Status:Closed by Severo DENT on 09/17/24 [facility] 09-14-2024 CNPN Telephone (RADTSA) MATEO STEARNS ([id number]) 1960 Date Time Provider Department 09/14/24 Severo DENT [facility] [employer] During your visit today, we recorded the [...] Encounter Status:Closed by MONA MELVIN on 09/14/24 [facility] CNOVon 09-11-2024 CNOV Office Visit (RADTSA ) MATEO STEARNS ([id number]) 1960 M Date Time Provider Department 09/11/24 [...] DIAGNOSIS: Prostate adenocarcinoma, initial PSA 4.46, biopsy Attapulgus score 3 + 3 = 6 (grade group 1), clinical stage T1c, N0, M0, stage I [cT1a-c/T2a, N0, M0, PSA <10, GG 1] (AJCC 8th ed.), s/p TRUS Random biopsy. HPI: Patient in for follow-up to discuss treatment options again. Laboratory: [employer] genomic risk score: 0.43 (low risk) PSA. [...] IMRT a (more content not included)... [facility], [facility]-07 Interpretation and review of laboratory results Abnormal [facility] PROSTATE SPECIFIC ANTIGEN DX 7.20 ng/mL High NINF - 4.00 ng/mL [facility] CLINISYNC No Panel Informationon 09-07 [facility] CNOVon 07-12-2024 CNOV Office Visit (RADTSA ) MATEO STEARNS ([id number]) 1960 [place] Date Time Provider Department 07/12/24 [...] with prostate adenocarcinoma, initial PSA 4.46, biopsy Attapulgus score 3 + 3 = 6 (grade [...] be checked (more content not included)... Normal [facility] CNOVon 06-21-2024 CNOV Office Visit (RADTSA ) JINNYMATEO MARSHALL ([id number]) 1960 M Date Time Provider Department 06/21/24 [...] on 05/01/2024 with the finding of adenocarcinoma, Attapulgus 6 (3+3) from left lateral base, left [...] muscle aches (more content not included)... Normal [facility] CNOVon 06-01-2024 CNOV Office Visit (ZAK ) MATEO STEARNS ([id number]) 1960 [place] Date Time Provider Department 06/01/24 1:45 PM AMANDEEP CRISOSTOMO During your visit today, we recorded the following information about you: Pulse Blood pressure Weight Height 88/minute 138/81 68 kg 1.753 m Amandeep Crisostomo MD 06/24/2024 4:18 PM Signed Referring Provider: Chief Complaint: Recently diagnosed CaP HPI: 63 year old male from [place], [place] with a PMHx of COPD (40 pack-year smoker), Afib (on ASA), and GERD diagnosed with CAP in 05/20 which showed 2 cores of Attapulgus 6 disease. He has sever COPD with [...] review Assessment 63 year old male from [place], [place] with a PMHx of COPD (40 pack-year smoker and poor oxygenation status), Afib (on ASA), and GERD diagnosed with CAP in 05/20 which showed 2 cores of Attapulgus 6 disease. Recently had more + cores on a repeat biopsy and is here (more content not included)... Normal [facility] URINALYSIS, REFLEX MICROSCOP ICon 06-01-2024 Bilirubin Ql (U) Negative Negative [facility] Clarity (Unsp spec) Clear Clear [facility] Color (U) Yellow Yellow [facility] Glucose Test strip (U) [Mass/Vol] Negative Negative [facility] Hemoglobin Ql (U) Negative Negative [facility] Interpretation and review of laboratory results Normal [facility] Ketones Ql (U) Negative Negative [facility] Leukocyte esterase Test strip Ql (U) Negative Negative [facility] Nitrite Ql (U) Negative Negative [facility] pH (U) 5.5 [pH] NINF - 8.5 [facility] Protein (U) [Mass/Vol] Negative Negative [facility] Specific gravity (U) [Rel density] 1.009 1.005 - 1.030 [facility] Urobilinogen Ql (U) 0.2 EU/dL 0.2-1.0 EU/dL [facility] This test was developed and its performance characteristics determined by [facility] [place] ([facility]). It has not been cleared or approved by the FDA. [facility] is regulated under CLIA as qualified to perform high-complexity testing. This test is used for clinical purposes. It should not be regarded as investigational or for research. [facility] Bilirubin Ql (U) Negative Normal Negative [facility] Comment on above: Order Comment: Speci men Type: URINE SPECIMENOrdering Facility: [facility] Address: [address] [place] [address] Performed By: #### L [id number] ####[facility] LABIA [id number] [place] [address] [place] Clarity (Unsp spec) Clear Normal Clear [facility] Comment on above: Order Comment: Speci men Type: URINE SPECIMENOrdering Facility: [facility] Address: [address] [place] [address] Performed By: #### L [id number] ####[facility] [id number] [place] [address] [place] Color (U) Yellow Normal Yellow [facility] Comment on above: Order Comment: Speci men Type: URINE SPECIMENOrdering Facility: [facility] Address: [address] [place] [id number] Performed By: #### L [id number] ####[facility] LABCLIA [id number] [address] [address] [place] Glucose Test strip (U) [Mass/Vol] Negative Normal Negative [facility] Comment on above: Order Comment: Speci men Type: URINE SPECIMENOrdering Facility: [facility] Address: [address] [place], [place] [address] Performed By: #### L [id number] ####[facility] LABCLIA [id number] [place] [address] [place] Hemoglobin Ql (U) Negative Normal Negative [facility] Comment on above: Order Comment: Speci men Type: URINE SPECIMENOrdering Facility: [facility] Address: [address] [place], [place] [address] Performed By: #### L [id number] ####[facility] LABCLIA [id number] [place] [address] [place] Ketones Ql (U) Negative Normal Negative [facility] Comment on above: Order Comment: Speci men Type: URINE SPECIMENOrdering Facility: [facility] Address: [address] [place] [id number] Performed By: #### L [id number] ####[facility] LABCLIA [id number] [place] [id number] [place] Leukocyte esterase Test strip Ql (U) Negative Normal Negative [facility] Comment on above: Order Comment: Speci men Type: URINE SPECIMENOrdering Facility: [facility] Address: [address] [place], [place] [address] Performed By: #### L [id number] ####[facility] LABCLIA [id number] [place] [id number] [place] Nitrite Ql (U) Negative Normal Negative [facility] Comment on above: Order Comment: Speci men Type: URINE SPECIMENOrdering Facility: [facility] Address: [address] [place] [address] Performed By: #### L [id number] ####[facility] LABCLIA [id number] [place] [address] [place] pH (U) 5.5 [pH] Normal <8.5 [facility] Comment on above: Order Comment: Speci men Type: URINE SPECIMENOrdering Facility: [facility] Address: [address] [place] [address] Performed By: #### L [id number] ####[facility] LABIA [id number] [place] [address] [place] Protein (U) [Mass/Vol] Negative Normal Negative [facility] Comment on above: Order Comment: Speci men Type: URINE SPECIMENOrdering Facility: [facility] Address: [address] [place] [address] Performed By: #### L [id number] ####[facility] LABIA [id number] [place] [address] [place] Specific gravity (U) [Rel density] 1.009 Normal 1.005-1.030 [facility] Comment on above: Order Comment: Speci men Type: URINE SPECIMENOrdering Facility: [facility] Address: [address] [place] [address] Performed By: #### L [id number] ####[facility] LABIA [id number] [place] [address] [place] Urobilinogen Ql (U) 0.2 EU/dL Normal 0.2-1.0 EU/dL [facility] Comment on above: Order Comment: Speci men Type: URINE SPECIMENOrdering Facility: [facility] Address: [address] [place] [address] Performed By: #### L [id number] ####[facility] LABCLIA [id number] [address] [address] [place] Ambulatory Visit Summaryon [...] Urology [address] , [place] [phone] Someone Will Contact You Regarding These Appointments [facility] [place]ulatory Referral, Other (needs to be [...] often, espec (more content not included)... Normal [facility] Patient Educationon 05-21-20 Patient Education Oncology [...] under a microscope. This is called the Attapulgus score and the total score can range from 6?10, indicating how likely it is that the cancer will spread (metastasize) to other parts of the body. The higher the score, the greater the likelihood that the cancer will spread. ? Attapulgus 6 or lower: This indicates that the cancer cells look similar to normal prostate cells (well differentiated). ? Brenden 7: This indicates that the cancer cells look somewhat similar to normal prostate cells (moderately differentiated). ? Attapulgus 8, 9, or 10: This indicates that [...] external be (more content not included)... Normal [facility] Urology Office/Clinic Noteon 05-21-2024 Urology Office/Clinic [...] 10%. 2 HGPINs. S/p TRUS/bx 05/01/24 - Attapulgus 6 (3+3) in 9/12 cores. 30% core [...] URL [facility] [address] [place] [phone] Additional Instructions: referral to [facility] to discuss [...] Recorded zoste (more content not included)... Normal [facility] Comment on above: Result Comment: Elec tronically Signed By: Rufina VORA MD\.br\Date and Time Signed: 05/21/24 12:44 EDT\.br\Electronically Co-Signed By: Vesta Cortes\.br\Date and Time Co-Signed: 05/21/24 12:43 EDT Coding Summary.on 05-17-2024 Coding Summary. MGKRPbfi12SKl6bAt+PG h lYWQ+QF8BWIUtI38khNCb iD8zP9ASIEiRZhkvRQVYU UpEDvBrbfFbZQ9teCFyXH Ju IC8+MI2tFVMrQmyvbRIvs 9H5sEO9R00obw4qCZiyyQ J4QOZvToDwakjez1ujeOm 6IDcuNmluOyBt ZEAndI93WKW8bU64Ql36c TUfhGGtr8rurAv2ZcAnLM DoIMP3gXfcHPidg7ZnHIO oP85cvDZpq4K6 DUPpeBkvuSDgHgSffOO3j F2vBNkrxjhzu1ayvysuZy g6bd56lTMvz2K5tBF9S0S yjaG7TZHulDXe CcnmvDBWmO9mhtuhq9ckz eyzXdOiTDSpHUo6QUk5CO CctJldHnVjHR34GEA7ZSU eraDsV5WlGTPs hIybApO0x1D1Mr8XP5BTN qfdU2PTIPXRIYtxmGR+PC 56sf76F0YhBsafNfx1AXN wNIM2uFC6oP3d QPNeSWrkq3O6tXT0S4Gly mCmin0ha4sdCEBwLVrqO1 1wwDDnh9Z4LZCsqAN2EEB wmSzyNkOokS53 Oyc+OKRjhNyyi5VrUytlx 8oue3irrAr3ArzlOVZlbb BarBscXTO2j4MuOc0cRCT nqVE6oIV6tJ3z CmOmNgJ5FNagA081JqSoy YYfSegwV50lI7NbnQR+PH SaKdg6CTYakLswBI7pN2Y hZGRpbmctbGVm lShmUG2vMUHdjxzkLGLse D1qPYCuF7a5ZuCbFgH3BX rpS9MnZEKibupqGd24bQ0 dJhRzRpI9BCdd J0JiznD1PJQgpIReLZlhO SR6I24nu9V9AUUbUKByBR X5rGI1lA3urHcggqouiKU mdDsgdmVydGlj RXkdHSuiS250RLKbhFaoY kNvZGluZyBEYXRlOiAgMD YvMjAvMjAyNDwvdGQ+PHR jWWZ8rYnrPNUk rIRxYEppCh4eyEtnkSmdT Q5bXNGueynbSNZrkV4kFQ JvpGOvlJxjIQ0zMKEemwr sq916VlBoJRZ0 PJPhiWEwX3PnlY4nQfQmG TXjYHVhO4SsvIVxCTnxR4 46CUxeHyK4JNJldhKlQ5J sLWFsaWduOiB0 s8H9Nu6Wq1DqompnD2Fqe KZqGoKnAobcUOa8U0JjZj wvdHI+JI16NAPuKG40EXt 6XTG9sKmlRTke TYKfO9ZuxM7tOnTjXIMaD GRkOyc+PHRhYmxlIHdpZH RoPScxMDAlJyBzdHlsZT0 cNh2nNITaGIYi jHerbRGfKrDlj4uiULEgL OhgCH6cjFcmO0LnhXH2IZ Ubz2z3Ww55Q56gD1DzsAS +UMUcmJL3hTX0 zA2kLfVyZgU2SOwcK399H lFmgTIwSpbjp1bhb9wffM k1JeO3JLIyebTwfAppQMW 2b1NyKk80S65f IHdpZHRoPSIxNSUiIHZhb Fcksf1mhV4tQc5+PGNvbC B6xRH3oG5vDuAuLvD5OFe pI393EdJdjNVk Rouaf6dxj6jxpSi2XkLlE GEmbsUlyXjmBKY3p2MaQk 16M8BdwIipd4MlGdg0ea4 1tBTsi0F9tAT4 W4QqXDXfalgvvFWdsJidD U6rXRTxdhcnZBJbgZ2hGD JxE2y9EmMyYaD2MYrvG4Z sfvN5XNKphWPy UTTcfHEYwK7neccad8los apwOpCfHGBiTYg1VVe4GU VlzOuhZuCnDGJ5CtN0FUO 1qOSeuX7olJpu erdsyD9bLwd+AWU0rQZya NVJTR1yFohewHR+PHRkIH B4eNvmJRleLOFdcP6tWKK pI5c0DcKvKfD1 QUwmV0EscxA9ECUivVCsG ZOvcLHAsO2osxxyz3yisl kyZwJzTEJvVGy2UEs3XEE saWduOiBsZWZ0 YrM2TKF8gZWfbY0xwVvpa veqhJ2eYdw+QmlydGggRG R6VXd1K7VqMqz3ZOMptBz yHI6lzNHhDGlg Jh4svPzxdXjkSH7fLRLro pzwf618ZsDaw5jgRTHqqN GhFZxnEZW3G95uy1F2ACL aCMDoZUV2jFR7 nD1qbUoqhutniQQcdWbou bHzcMfoOKrkXNipA788WG OckUgeZxDeVFb0W8WeWyw 1YHYweEujOJ6j iAMfVNtiKq3dgTiewKqiH T8cPNBcubipz092ZzXhx3 ezZEYjlIEiKJsnOXB1Y33 rq3Y9OJTiWHYr CUG4yQM1nY4mlEldknodb GVmdDsgdmVydGljYWwtYW mkO407SGZkqJnbFaVmuIx 4O3IaTgr5NOCp tLicPS2yvJKcRFdpMm6wy HnsiLluHD9nMTXbgfrbe0 49BfRkx8qfKDAlhMNeXNv cXYR8G90ng8Z0 RIJhNMDwBZO1uFF8mD4ki GlnbjogbGVmdDsgdmVydG iiZKmsECrsY576YYMsvKw nPlBhdGllbnQg WCyxDLo8C5TsOzsntLS+P Z76AFSoEY60pCIiePNjb1 kicJo1YgWjRWVoQIT4pEb pMTlpd7WgYXXd Y22ggPRyx9M3PUDvrUsrh UXqOlYsvBV0tO5rZNuqym vyw5dxqfksFetrv1koye7 1yE63T13zTPgk ZHRoPSIzMCUiIHZhbGlnb v5lgU9vKg9+TICcvAI9zM V4iJ6jRROaRcY6NVgzS18 9InRvcCIvPjxj t8kqw4mykDv0QnT8TTLsy jZsnLozLKJ9n2HyUs85B6 9sIHdpZHRoPSIyMCUiIHZ zlBjzrr7mhE1r Ii8+YSMmjRQ0rQU8zR2yB sHlCwU5WFguG463QsBvkH YiHmlpW85uM0XvkPD+PHR fCct9LOToaEsw UT5uxRSkNWuzHx2fARM3B zPcYcPoPQrmS2IkTWRvgz fbdlexkSQ2DFUbDQFxyT2 2Ys6qmNalIGOi tPFKhE9sstjbb5vdnwzoQ jUuZQYuEDa2MTg1JSVnpG onNdOzMJY2ZoJ3PDJ7tWR bwX2onFfyyuzu oG6vZ9JuXJFswisjFa16z L3cNnJzDdV1BMnkEdg+SE 9LGQjaL4sEELFLJ4ZKRJZ gVzwvdGQ+PHRk QBD4kCxaBRxzHJCdzH0cA WOuF8y6UpSmHfA2ULpsP4 JqZHPdgslcBg49qL1kNvF cEwD9NHqpC1Ag gqG5QHTukPSgDAriWZU4N 89zw4A0UQPbPZAtLCP6xU A1fS8tbZvnbnzemMLeeAp gdmVydGljYWwt ELojH319UMBeeSazMlX2B nD5JuU8RKp6Z6CuTqn4VL VokZziBT6nfMFaMRbsMp9 ciUujcDzqVO5o GEEaioohOFAjbK8zGZWkz POvsQocBI2kDXRsyrfhg0 01KbPvMRF0XIEcoVVnC5R zlQ6gFoRjRJRd QHDwX8TgePSxPYohX430I ExhOmS3BCHbzbLkW6UbKU BbhGxqSjQ4q5K2Ji39MLS ZZWFyczwvdGQ+ IFFpMSM5fAzjDLfzIAQuj E0qPBZyX4v9WqVoIpR9AM guQ6KpNSKtreqvJi69lM4 uWxXhLaK7SOql Z5UmjnD2JTZzvUVuBCzjO QV6L61tw2B2JTQoEVPwUW Q2lWG8hE5oaOuqztqegXG mdDsgdmVydGlj GCjtHHvjT205AMRgsBjsD y4dnXM3Z6JbSfs4UOJbzE cuGD6soYEtVHmsMj6lsLr cnJonNK8cDLGl bubrRGKrlV4mGYUdvPVws TsaMD1iRUQoyuvej276Ho RyQVK2VLVmqSTwT3YgkA8 yOiAjMDAwMDAw V3VnmGEgKJtdB709VCyqZ mH2OBPznrWhQ7TvLNUpaC mwYwF8y4A6Jz8GaNLrQUV bHO37OG92CV15 M3ObFkbbtXSxjPJ+PHRhY mxlIHdpZHRoPScxMDAlJy NcvAvpCG1yHo6uYWBtOVM vbGxhcHNlOiBj f6ypGQImUYylON2seDtfD 9ZlhAG2ROFqs6x7Bt56P6 2lU0OnuHS+OYMlrHX1mQQ 9lP3hMuMiYdT6 CBquE890GvOvpKAqYbnad 0kks5ttoSb6ShJcKVKvgx VcaZnaZIB9k3VwPd05E77 sIHdpZHRoPSIy YSGqKSGdhMzbfa7dbR2uT i8+LABrqNO8kSD5sB3uNu LoOiK9EEheK685GnBcgXP tCjsbT41bZ3No dXA+RBNsZip2YMMuuBsvG Q1bvPLpKZvhZq2jMKV2Di OhEpCaAFpoC8WmSPZukat oredckCW5WCHr PJVbaL21Yg3xeZyaYy2yA DUjWDL8YNFauTOlG8VmvO 6pLeDgTPKhFUTbW2HlfQG hBMzdU851XHqm UdX6RVZtfmYaJ1GdYKUda NsnCvT9m2T7Gx6QwEplgF LsUA2gQjXwKTk2Q6KqOdp 7ORXuqFxsXM9w oWRzDVjmNa9vpIjnxGcaM O8gYEQbogwpb995OsVws5 mcVPSnkXOlQCvdSWX1F21 vr6F2BNLuQUVr OKE0eLR7iR4ntZmddudym GVmdDsgdmVydGljYWwtYW ysM043SDCxdQlnTgHRPnl 4M7VqIli8SLLb dEipSI6ieIDmSJkhCu3io XbjuBorWL5hLURabdayg5 11HqFue9txNRWojREnHEa rCXC5E38dr9G2 RBCnKUHmNQV7tHQ6oG8sg GlnbjogbGVmdDsgdmVydG icMDxzFQsfG234ABDzjWr gZr3GTym6N7Mi Inf1JTKdgZwoPV6nwOKfV EttDs2feUyvaUicXG4uOM Xviutns430UqZgx8vkBFR wcHQgVGltZXM7 H47fe9R3YEBbLWIdEJU6m PV4yM6dpSnjhfvxvXTcnR geatWdsBlkMPuaMUqgH89 6IHRvcDsnPlBh eWVyOjwvdGQ+YV73qe71L 5JhRwcnRvl0ZWQhATC7yK D6eA4aIKDgJShjq6P1gCJ 1J0EmcsYxro1g l7yvXMDkWFlhR (more content not included)... Normal [facility] Prostate Histology ([facility]) on 05-16-2024 Prostate Histology Diagnosis Info Invalid Interpretation Code [facility] Comment on above: Order Comment: left [...] Interpretation - - Acinar adenocarcinoma of prostate; Attapulgus score 6(3+3); Tumor measures 0.1 cm in [...] not identified. MicroScopic Description - E:Prostate,Left Lateral Lissie:Needle Biopsy Interpretation - - Atypical glands suspicious but not diagnostic for adenocarcinoma. MicroScopic Description - F:Prostate,Left Lissie:Needle Biopsy Interpretation - - Benign prostatic tissue. MicroScopic Description - G:Prostate,Right Base:Needle Biopsy Interpretation - - Benign prostatic tissue. MicroScopic Description - H:Prostate,Right Lateral Base:Needle Biopsy Interpretation - - Benign prostatic tissue. MicroScopic Description - I:Prostate,Right Mid:Needle Biopsy Interpretation - - Benign prostatic tissue. MicroScopic Description - J:Prostate,Right Lateral Mid:Needle Biopsy Interpretation - - Benign prostatic tissue. MicroScopic Description - K:Prostate,Right Lissie:Needle Biopsy Interpretation - - Benign prostatic tissue. MicroScopic Description - L:Prostate,Right Lateral Lissie:Needle Biopsy Interpretation - - Benign prostatic tissue. MicroScopic Description - M:Prostate,Left Base:Needle Biopsy Interpretation - - Acinar adenocarcinoma of prostate; Brenden score 6(3+3); Tumor measures 0.2 cm in length; 9% of the core involved by tumor; 1 of 1 core involved; Perineural invasion not identified. MicroScopic Description - N:Prostate,Left Base:Needle Biopsy Interpretation - - Acinar adenocarcinoma of prostate; Attapulgus score 6(3+3); Tumor measures 0.4 cm in [...] Interpretation - - Acinar adenocarcinoma of prostate; Attapulgus score 6(3+3); Tumor measures 0.1 cm in length; 25% of the core involved by tumor; 1 of 2 cores involved; Perineural invasion not identified. MicroScopic Description - Q:Prostate,Left Lissie:Needle Biopsy Interpretation - - Acinar adenocarcinoma of prostate; Attapulgus score 6(3+3); Tumor measures 0.1 cm in length; 3% of the core involved by tumor; 1 of 2 cores involved; MicroScopic Description - R:Prostate,Left Lissie:Needle Biopsy Interpretation - - Benign prostatic tissue. [...] on: 05/16/2024 11:46:32 Performed By: #### 1 [id number] #### [facility] [address] [place] [address] Consent for Procedure/Surger yon 05-01-2024 Consent for Procedure/Surgery [id number] .00TIFF Normal [facility] Consent for Treatmenton -0 Consent for Treatment [id number] .00TIFF Normal [facility] IntraOperative Documentson 0 05-01-2024 IntraOperative Documents [id number] .00TIFF Normal [facility] Main OR Intraoperative Recor don 05-01-2024 Main OR Intraoperative Record IntraOp Document Type FTURO Summary Primary Physician: Rufina VORA MD Finalized Date/Time: 05/01/24 12:17:31 Pt. Name: MATEO STEARNS Nuha/Sex: 1960 Male Med Rec #: [id number] Physician: Rufina VORA MD Financial #: [id number] Pt. Type: O Room/Bed: / Admit/Disch: 05/01/24 [...] Diana Whitlock Role Performed Surgeon - Primary Millwright Apprentice - Primary Scrub - Primary Time In [...] By: Mara Wong RN 05/01/24 12:17 Normal [facility] Main OR Preoperative Recordo n 05-01-2024 Main OR Preoperative Record Holding Area Document Type FTURO Summary Primary Physician: Rufina VORA MD Finalized Date/Time: 05/01/24 11:27:32 Pt. Name: MATEO STEARNS/Sex: 1960 Male Med Rec #: [id number] Physician: Rufina VORA MD Financial #: [id number] Pt. Type: O Room/Bed: / Admit/Disch: 05/01/24 [...] MICA Kimball RN, Ruthann 05/01/24 11:27 Normal [facility] Operative Reporton Operative Report Patient: MATEO [...] evaluation, 18 total biopsies were taken. Normal [facility] Comment on above: Result Comment: Elec tronically Signed By: DIONY CHANDLER, Rufina Bynum.brenda\Date and Time Signed: 05/01/24 12:04 EDT Outpatient Surgery Discharge Instructionon 05-01-2024 Outpatient Surgery Discharge Instruction [id number] .00TIFF Normal [facility] Patient Educationon 05-01-20 Patient Education Custom [...] for your post-operative appointment in 1-2 weeks [phone] or [phone] Normal [facility] Prostate Histology ([facility]) on 05-01-2024 PH Method of Extraction Needle Biopsy Normal [facility] Comment on above: Order Comment: left base x 3 bites Left lateral mid x 3 bites Left apex x 4 bites Performed By: #### 1 [id number] #### [facility] [address] [place] [address] PH Number of Jars 3 Invalid Interpretation Code [facility] Comment on above: Order Comment: left base x 3 bites Left lateral mid x 3 bites Left apex x 4 bites Performed By: #### 1 [id number] #### [facility] [address] [place] [address] PH Specimen 1 L Apx Prostate Normal [facility] Comment on above: Order Comment: left base x 3 bites Left lateral mid x 3 bites Left apex x 4 bites Performed By: #### 1 [id number] #### [facility] [address] [place] [address] PH Specimen 10 R Lat Bse Prost Normal [facility] Comment on above: Order Comment: left base x 3 bites Left lateral mid x 3 bites Left apex x 4 bites Performed By: #### 1 [id number] #### [facility] [address] [place] [address] PH Specimen 11 R Lat Mid Prost Normal [facility] Comment on above: Order Comment: left base x 3 bites Left lateral mid x 3 bites Left apex x 4 bites Performed By: #### 1 [id number] #### [facility] [address] [place] [address] PH Specimen 12 R Lat Apx Prost Normal [facility] Comment on above: Order Comment: left base x 3 bites Left lateral mid x 3 bites Left apex x 4 bites Performed By: #### 1 [id number] #### [facility] [address] [place] [address] PH Specimen 2 L Base Prostate Normal [facility] Comment on above: Order Comment: left base x 3 bites Left lateral mid x 3 bites Left apex x 4 bites Performed By: #### 1 [id number] #### [facility] [address] [place] [address] PH Specimen 3 L Lat Apx Prost Normal [facility] Comment on above: Order Comment: left base x 3 bites Left lateral mid x 3 bites Left apex x 4 bites Performed By: #### 1 [id number] #### [facility] [address] [place] [address] PH Specimen 4 L Lat Bse Prost Normal [facility] Comment on above: Order Comment: left base x 3 bites Left lateral mid x 3 bites Left apex x 4 bites Performed By: #### 1 [id number] #### [facility] [address] [place] [address] PH Specimen 5 L Lat Mid Prost Normal [facility] Comment on above: Order Comment: left base x 3 bites Left lateral mid x 3 bites Left apex x 4 bites Performed By: #### 1 [id number] #### [facility] [address] [place] [address] PH Specimen 6 L Mid Prostate Normal [facility] Comment on above: Order Comment: left base x 3 bites Left lateral mid x 3 bites Left apex x 4 bites Performed By: #### 1 [id number] #### [facility] [address] [place] [address] PH Specimen 7 R Apx Prostate Normal [facility] Comment on above: Order Comment: left base x 3 bites Left lateral mid x 3 bites Left apex x 4 bites Performed By: #### 1 [id number] #### [facility] [address] [place] [address] PH Specimen 8 R Base Prostate Normal [facility] Comment on above: Order Comment: left base x 3 bites Left lateral mid x 3 bites Left apex x 4 bites Performed By: #### 1 [id number] #### [facility] [address] [place] [address] PH Specimen 9 R Mid Prostate Normal [facility] Comment on above: Order Comment: left base x 3 bites Left lateral mid x 3 bites Left apex x 4 bites Performed By: #### 1 [id number] #### [facility] [address] [place] [address] PH Type of Service Technical Only Normal [facility] Comment on above: Order Comment: left base x 3 bites Left lateral mid x 3 bites Left apex x 4 bites Performed By: #### 1 [id number] #### [facility] [address] [place] [address] Patient Educationon 01-02-20 Patient Education Oncology Transrectal [...] near your rectum, especially while sitting. ? [place]-colored urine due to small amounts of blood in your urine. ? A burning feeling while urinating. ? Blood in your stool (feces) or bleeding from your rectum. ? Blood in your semen. Follow these instructions at home: Medicines ? Take zifl-zfp-tibtair and prescription medicines only as told by [...] provider. Document Revised: 05/10/2022 Document Reviewed: 05/10/2022 [employer] Patient Education ? 2022 [employer] Transrectal Ultrasound-Guided Prostate Biopsy A transrectal [...] including vitamins, herbs, eye drops, creams, and hnxm-kww-yhxgxya medicines. ? Any problems you or family [...] as aspirin (more content not included)... Normal [facility] Urology Office/Clinic Noteon 01-02-2024 Urology Office/Clinic [...] of prostate cancer. S/p TRUS/bx 05/17/23 - Attapulgus score 6 (3+3) in 2 cores each [...] Urology [address], [place] [address]- [phone] Additional Instructions: sched repeat TRUS/bx Patient Education [...] Father. I (more content not included)... Normal [facility] Comment on above: Result Comment: Elec tronically Signed By: Rufina VORA MD\.br\Date and Time Signed: 01/02/24 13:53 EST\.br\Electronically Co-Signed By: Vesta Cortes\.br\Date and Time Co-Signed: 01/02/24 13:52 EST Lab Reportson 12-01-2023 Lab Reports [id number] .00TIFF Normal [facility] Ambulatory Visit Summaryon 0 06-06-2023 Ambulatory Visit Summary MATEO STEARNS :1960 Visit Date:06/06/2023 Ambulatory Visit Instructions Your Diagnosis Prostate cancer Sebaceous cyst Tests Performed Urnls Dip Stick Auto w/o Microscopy POC 56912 Your Care Team Attending Physician - Ruifna VORA MD Primary Care Physician - KATHIE [...] CHANDLER, Rufina Reina Where: [facility] [place] Normal [facility] Patient Educationon 06-06-20 23 Patient Education [...] under a microscope. This is called the Attapulgus score and the total score can range from 6?10, indicating how likely it is that the cancer will spread (metastasize) to other parts of the body. The higher the score, the greater the likelihood that the cancer will spread. ? Brenden 6 or lower: This indicates that the cancer cells look similar to normal prostate cells (well differentiated). ? Attapulgus 7: This indicates that the cancer cells look somewhat similar to normal prostate cells (moderately differentiated). ? Attapulgus 8, 9, or 10: This indicates that [...] external be (more content not included)... Normal [facility] Urology Office/Clinic Noteon 06-06-2023 Urology Office/Clinic [...] 04/08/23 - 4.46 S/p TRUS/bx 05/17/23 - Attapulgus score 6 (3+3) in 2 cores each [...] months [facility] [address] [place] [address]- [phone] Additional Instructions: PSA and ANNE-MARIE Patient Education [...] Cigarettes, 02/07/2023 (more content not included)... Normal [facility] Comment on above: Result Comment: Elec tronically Signed By: Rufina VORA MD\.br\Date and Time Signed: 06/06/23 11:52 EDT\.br\Electronically Co-Signed By: Vesta Cortes\.br\Date and Time Co-Signed: 06/06/23 11:47 EDT PSA, FREE AND TOTAL RATIOon 04-13-2023 % Free PSA 12.1 % Normal [facility] Comment on above: Result Comment: The [...] men. Performed By: #### H ISTGAL #### [facility] [address] [place] [address] Dr. James Crowley Prostate specific Ag [Mass/Vol] 3.4 ng/mL Normal 0.0-4.0 [facility] Comment on above: Result Comment: Rosa Elena DESHPANDE methodology. . According to the [employer], Serum PSA should decrease and [...] disease. Performed By: #### H ISTGAL #### [facility] [address] [place] [address] Dr. James Crowley PSA, Free 0.41 ng/mL Normal N/A [facility] Comment on above: Result Comment: Rosa Elena DESHPANDE methodology. Performed By: #### H ISTGAL #### [facility] [address] [place] [address] Dr. James Crowley CBC AUTO DIFFon 04-08-2023 BASO # 0.1 103/ul Normal 0.0-0.1 [facility] Comment on above: Performed By: #### C BC #### [facility] [address] [place] [address] Dr. James Crowley Basophils/100 WBC (Bld) 0.5 % Normal 0.2-2.0 [facility] Comment on above: Performed By: #### C BC #### [facility] [address] [place] [address] Dr. James Crowley EO # 0.1 103/ul Normal 0.0-0.7 [facility] Comment on above: Performed By: #### C BC #### [facility] [address] [address] [address] James Crowley Eosinophils/100 WBC (Bld) 1.3 % Normal 0.9-7.0 [facility] Comment on above: Performed By: #### C BC #### [facility] [address] [place] [address] Dr. James Crowley Erythrocyte distribution width (RBC) [Ratio] 13.5 % Normal 11.0-15.0 [facility] Comment on above: Performed By: #### C BC #### [facility] [address] [place] [address] Dr. James Crowley Hematocrit (Bld) [Volume fraction] 48.4 % Normal 42.0-54.0 [facility] Comment on above: Performed By: #### C BC #### [facility] [address] [place] [address] Dr. James Crowley Hemoglobin (Bld) [Mass/Vol] 15.6 g/dL Normal 14.0-18.0 [facility] Comment on above: Performed By: #### C BC #### [facility] [address] [place] [address] Dr. James Crowley IG # 0.08 10e3/ul Critically high 0.00-0.03 [facility] Comment on above: Performed By: #### C BC #### [facility] [address] [place] [address] Dr. James Crowley IG % 0.8 % Critically high 0.0-0.5 [facility] Comment on above: Performed By: #### C BC #### [facility] [address] [place] [address] Dr. James Crowley LYMPH # 3.1 103/ul Normal 1.2-3.8 [facility] Comment on above: Performed By: #### C BC #### [facility] [address] [place] [address] Dr. James Crowley Lymphocytes/100 WBC (Bld) 29.8 % Normal 20.5-60.0 [facility] Comment on above: Performed By: #### C BC #### [facility] [address] [place] [address] Dr. James Crowley MANUAL DIFF REQ NO Normal [facility] Comment on above: Performed By: #### C BC #### [facility] [address] [place] [address] Dr. James Crowley MCH (RBC) [Entitic mass] 29.3 pg Normal 25.9-34.0 [facility] Comment on above: Performed By: #### C BC #### [facility] [address] [place] [address] Dr. James Crowley MCHC (RBC) [Mass/Vol] 32.2 g/dL Normal 29.9-35.2 [facility] Comment on above: Performed By: #### C BC #### [facility] [address] [place] [address] Dr. James Crowley MCV (RBC) [Entitic vol] 90.8 fL Normal 80.0-94.0 [facility] Comment on above: Performed By: #### C BC #### [facility] [address] [place] [address] Dr. James Crowley MONO # 0.6 103/ul Normal 0.3-0.8 [facility] Comment on above: Performed By: #### C BC #### [facility] [address] [place] [address] Dr. James Crowley Monocytes/100 WBC (Bld) 5.9 % Normal 1.7-12.0 [facility] Comment on above: Performed By: #### C BC #### [facility] [address] [place] [address] Dr. James Crowley NEUT # 6.4 103/ul Normal 1.4-6.5 [facility] Comment on above: Performed By: #### C BC #### [facility] [address] [place] [address] Dr. James Crowley Neutrophils/100 WBC (Bld) 61.7 % Normal 43.0-75.0 [facility] Comment on above: Performed By: #### C BC #### [facility] [address] [place] [address] Dr. James Crowley Platelet mean volume (Bld) [Entitic vol] 9.1 fL Critically low 9.5-13.5 [facility] Comment on above: Performed By: #### C BC #### [facility] [address] [place] [address] Dr. James Crowley PLT 320 103/ul Normal 150-450 [facility] Comment on above: Performed By: #### C BC #### [facility] [address] [place] [address] Dr. James Crowley RBC 5.33 106/ul Normal 4.70-6.10 [facility] Comment on above: Performed By: #### C BC #### [facility] [address] [place] [address] Dr. James Crowley WBC 10.4 103/ul Normal 4.0-11.0 [facility] Comment on above: Performed By: #### C BC #### [facility] [address] [place] [address] CHEST W CONon [...] by: LEONOR MA Date: 2023-04-08 10:41 Normal [facility] LIPID PROFILEon 04-08-2023 CHOL-HDL RATIO NORM SEE BELOW Normal [facility] Comment on above: Result Comment: 3.3 - 4.4 LOW RISK 4.4 - 7.1 AVERAGE RISK 7.1 - 11.0 MODERATE RISK >11.0 HIGH RISK Performed By: #### U NEO, LIPID #### [facility] [address] [address] [address] James Crowley Cholesterol [Mass/Vol] 204 mg/dL Critically high <=200 [facility] Comment on above: Performed By: #### U NEO, LIPID #### [facility] [address] [address] [address] James Crowley Cholesterol in HDL [Mass/Vol] 55 mg/dL Normal 40-60 [facility] Comment on above: Performed By: #### U NEO, LIPID #### [facility] [address] [address] [address] James Crowley Cholesterol in LDL [Mass/Vol] 115.2 mg/dL Normal [facility] Comment on above: Performed By: #### U NEO, LIPID #### [facility] [address] [address] [address] James Crowley Cholesterol.total/C holesterol in HDL [Mass ratio] 3.7 {ratio} Normal [facility] Comment on above: Performed By: #### U NEO, LIPID #### [facility] [address] [address] [address] James Crowley HDL NORMAL > or = 60 mg/dl - LO W CARDIOVASCULAR RISK <40 mg/dl - HIGH CARDIOVASCULAR RISK Normal [facility] Comment on above: Performed By: #### U NEO, LIPID #### [facility] [address] [address] [address] James Crowley LDL CALC NORMAL SEE BELOW Normal [facility] Comment on above: Result Comment: <100 mg/dl OPTIMAL 100 - 129 mg/dl NEAR OR ABOVE OPTIMAL 130 - 159 mg/dl BORDERLINE HIGH 160 - 189 mg/dl HIGH >190 mg/dl VERY HIGH Performed By: #### U NEO, LIPID #### [facility] [address] [place] [address] Dr. James Crowley Triglyceride [Mass/Vol] 169 mg/dL Critically high <=150 [facility] Comment on above: Performed By: #### U NEO, LIPID #### [facility] [address] [place] [address] Dr. James Crowley VLDL CALC 33.8 mg/dL Normal [facility] Comment on above: Performed By: #### U NEO, LIPID #### [facility] [address] [place] [address] Dr. James Crowley PROF 14(COMP METB)on 023 Albumin [Mass/Vol] 3.7 g/dL Normal 3.4-5.0 [facility] Comment on above: Performed By: #### U NEO, LIPID #### [facility] [address] [place] [address] Dr. James Crowley Albumin/Globulin [Mass ratio] 0.9 {ratio} Normal [facility] Comment on above: Performed By: #### U NEO, LIPID #### [facility] [address] [place] [address] Dr. James Crowley ALP [Catalytic activity/Vol] 86 U/L Normal 46-116 [facility] Comment on above: Performed By: #### U NEO, LIPID #### [facility] [address] [place] [address] Dr. James Crowley ALT [Catalytic activity/Vol] 33 U/L Normal 16-63 [facility] Comment on above: Performed By: #### U NEO, LIPID #### [facility] [address] [place] [address] Dr. James Crowley Anion gap [Moles/Vol] 14.8 mmol/L Normal [facility] Comment on above: Performed By: #### U NEO, LIPID #### [facility] [address] [place] [address] Dr. James Crowley AST [Catalytic activity/Vol] 16 U/L Normal 15-37 [facility] Comment on above: Performed By: #### U NEO, LIPID #### [facility] [address] [place] [address] Dr. James Crowley Bilirubin [Mass/Vol] 0.7 mg/dL Normal 0.2-1.0 [facility] Comment on above: Performed By: #### U NEO, LIPID #### [facility] [address] [address] [address] James Crowley Calcium [Mass/Vol] 9.1 mg/dL Normal 8.5-10.1 [facility] Comment on above: Performed By: #### U NEO, LIPID #### [facility] [address] [place] [address] Dr. James Crowley Chloride [Moles/Vol] 107 mmol/L Normal 98-107 [facility] Comment on above: Performed By: #### U ENO, LIPID #### [facility] [address] [place] [address] Dr. James Crowley CO2 [Moles/Vol] 28.0 mmol/L Normal 21.0-32.0 [facility] Comment on above: Performed By: #### U NEO, LIPID #### [facility] [address] [place] [address] Dr. James Crowley Creatinine [Mass/Vol] 1.10 mg/dL Normal 0.70-1.30 [facility] Comment on above: Performed By: #### U NEO, LIPID #### [facility] [address] [place] [address] Dr. James Crowley EGFR-AF FINNISH >60 Normal >=60 [facility] Comment on above: Performed By: #### U NEO, LIPID #### [facility] [address] [place] [address] Dr. James Crowley EGFR-NON AF FINNISH >60 Normal >=60 [facility] Comment on above: Performed By: #### U NEO, LIPID #### [facility] [address] [place] [address] Dr. James Crowley Globulin (S) [Mass/Vol] 3.9 g/dL Normal [facility] Comment on above: Performed By: #### U NEO, LIPID #### [facility] [address] [place] [address] Dr. James Crowley Glucose [Mass/Vol] 98 mg/dL Normal 74-106 [facility] Comment on above: Performed By: #### U NEO, LIPID #### [facility] [address] [place] [address] Dr. James Crowley Potassium [Moles/Vol] 3.8 mmol/L Normal 3.5-5.1 [facility] Comment on above: Performed By: #### U NEO, LIPID #### [facility] [address] [place] [address] Dr. James Crowley Protein [Mass/Vol] 7.6 g/dL Normal 6.4-8.2 [facility] Comment on above: Performed By: #### U NEO, LIPID #### [facility] [address] [place] [address] Dr. James Crowley Sodium [Moles/Vol] 146 mmol/L Critically high 136-145 [facility] Comment on above: Performed By: #### U NEO, LIPID #### [facility] [address] [place] [address] Dr. James Crowley Urea nitrogen [Mass/Vol] 18.0 mg/dL Normal 7.0-18.0 [facility] Comment on above: Performed By: #### U NEO, LIPID #### [facility] [address] [place] [address] Dr. James Crowley Urea nitrogen/Creatinine [Mass ratio] 16.4 mg/mg Normal [facility] Comment on above: Performed By: #### U NEO, LIPID #### [facility] [address] [place] [address] Dr. James Crowley URIC ACID SERUMon 04-08-2023 Urate [Mass/Vol] 6.7 mg/dL Normal 3.5-7.2 [facility] Comment on above: Performed By: #### U NEO, LIPID #### [facility] [address] [place] [address] CHEST WO CONon [...] by: LEONOR MA Date: 2023-01-04 10:[address] [facility] [address] CHEST WO CONon 10-07-2022 CT [...] by: LEONOR MA Date: 2022-10-07 16:05 Normal [facility] ACID FAST SMEAR AND CXon Acid Fast Culture Negative Normal [facility] Comment on above: Result Comment: No a tomi fast bacilli isolated after 6 weeks. Performed By: #### U NEO, LIPID #### [facility] [address] [address] [address] James Crowley Acid Fast Smear Negative Normal [facility] Comment on above: Performed By: #### U NEO, LIPID #### [facility] [address] [address] [address] James Crowley [employer] Specimen Processing Concentration Normal [facility] Comment on above: Performed By: #### U NEO, LIPID #### [facility] [address] [address] [address] James Crowley FUNGAL AB QUANTITAIVE DOUBLE IMMUNODIFFUon 08-22-2022 Aspergillus flavus Negative Normal Neg:<1:1 [facility] Comment on above: Performed By: #### F UNGUYI #### [facility] [address] [address] [address] James Crowley Aspergillus fumigatus Negative Normal Neg:<1:1 [facility] Comment on above: Performed By: #### F UNGUYI #### [facility] [address] [address] [address] James Crowley Aspergillus niger Negative Normal Neg:<1:1 [facility] Comment on above: Performed By: #### F UNGUYI #### [facility] [address] [address] [address] James Crowley Blastomyces Negative Normal Neg:<1:1 [facility] Comment on above: Performed By: #### F UNGUYI #### [facility] [address] [address] [address] Jmaes Crowley COXSACKIE B VIRUS ANTIBODIES on 08-21-2022 [place] B-1 Ab Negative Normal Neg:<1:8 [facility] Comment on above: Performed By: #### C OXSBV #### [facility] [address] [address] [address] James Crowley [place] B-2 Ab Negative Normal Neg:<1:8 [facility] Comment on above: Performed By: #### C OXSBV #### [facility] [address] [address] [address] James Crowley coxsackie B-3 Ab Negative Normal Neg:<1:8 [facility] Comment on above: Performed By: #### C OXSBV #### [facility] [address] [address] [address] James Crowley [place] B-4 Ab Negative Normal Neg:<1:8 [facility] Comment on above: Performed By: #### C OXSBV #### [facility] [address] [address] [address] James Crowley [place] B-5 Ab Negative Normal Neg:<1:8 [facility] Comment on above: Performed By: #### C OXSBV #### [facility] [address] [address] [address] James Crowley [place] B-6 Ab Negative Normal Neg:<1:8 [facility] Comment on above: Performed By: #### C OXSBV #### [facility] [address] [address] [address] James Crowley HISTOPLASMA CAP AB QUANT DID on 08-21-2022 Histoplasma Mycelial CF Ab. Negative Normal Neg:<1:2 [facility] Comment on above: Performed By: #### H ISTGAL #### [facility] [address] [place] [address] Dr. James Cleaningoplasma Yeast CF Ab Negative Normal Neg:<1:2 [facility] Comment on above: Performed By: #### H ISTGAL #### [facility] [address] [place] [address] Dr. James Crowley COX[place] A VIRUS AB IGMon 0 08-20-2022 [place] A16 IgM Negative Normal Neg:<1:10 [facility] Comment on above: Performed By: #### C OXSIGM #### [facility] [address] [place] [address] Dr. James Crowley [place] A24 IgM Negative Normal Neg:<1:10 [facility] Comment on above: Performed By: #### C OXSIGM #### [facility] [address] [place] [address] Dr. James Crowley [place] A7 IgM Negative Normal Neg:<1:10 [facility] Comment on above: Performed By: #### C OXSIGM #### [facility] [address] [place] [address] Dr. James Crowley [place] A9 IgM Negative Normal Neg:<1:10 [facility] Comment on above: Performed By: #### C OXSIGM #### [facility] [address] [place] [address] Dr. James Crowley HISTOPLASMA GALACTOMANNAN AG URINEon 08-20-2022 Histoplasma Gal'shwetha Ag <0.5 Normal <0.5 ng/mL [facility] Comment on above: Performed By: #### H ISTGAL #### [facility] [address] [place] [address] Dr. James Crowley QUANTIFERON TB GOLD PLUSon 0 08-20-2022 QuantiFERON Criteria Comment Normal [facility] Comment on above: Result Comment: Vick [...] test. Performed By: #### Q NTTB #### [facility] [address] [place] [address] Dr. James Crowley QuantiFERON Incubation Incubation performed. Normal [facility] Comment on above: Performed By: #### Q NTTB #### [facility] [address] [place] [address] Dr. James Crowley QuantiFERON Mitogen Value >10.00 Normal [facility] Comment on above: Performed By: #### Q NTTB #### [facility] [address] [place] [address] Dr. James Crowley QuantiFERON Nil Value 0.04 IU/mL [facility] Comment on above: Performed By: #### Q NTTB #### [facility] [address] [place] [address] Dr. James Crowley QuantiFERON TB1 Ag Value 0.04 IU/mL [facility] Comment on above: Performed By: #### Q NTTB #### [facility] [address] [place] [address] Dr. James Crowley QuantiFERON TB2 Ag Value 0.05 IU/mL [facility] Comment on above: Performed By: #### Q NTTB #### [facility] [address] [place] [address] Dr. James Crowley QuantiFERON-TB Gold Plus Negative Normal Negative [facility] Comment on above: Result Comment: No r esponse to M tuberculosis antigens detected. Infection with M tuberculosis is unlikely, but high risk individuals should be considered for additional testing (ATS/IDSA/CDC Clinical Practice Guidelines, 2017). The reference range is an Antigen minus Nil result of <0.35 IU/mL. Chemiluminescence immunoassay methodology Performed By: #### Q NTTB #### [facility] [address] [address] [address] James Crowley CREATININEon 08-18-2022 Creatinine [Mass/Vol] 0.97 mg/dL Normal 0.70-1.30 [facility] Comment on above: Performed By: #### H ISTGAL #### [facility] [address] [address] [address] James Crowley EGFR-AF FINNISH >60 Normal >=60 [facility] Comment on above: Performed By: #### H ISTGAL #### [facility] [address] [address] [address] James Crowley EGFR-NON AF FINNISH >60 Normal >=60 [facility] Comment on above: Performed By: #### H ISTGAL #### [facility] [address] [address] CHEST W CONon [...] LEONOR MA Date: 2022-08-18 10:27 Normal [facility] CULTURE SPUTUMon 08-18-2022 CULTURE SPUTUM Isolate 1 Haemophilus parainfluenzae Moderate growth of Normal [facility] Comment on above: Result Comment: Beta -Lactamase: Negative Performed By: #### H ISTGAL #### [facility] [address] [address] [address] James Crowley SPUTUM GRAM STAINon 08-18-20 22 COMMENTS Normal [facility] Comment on above: Performed By: #### H ISTGAL #### [facility] [address] [address] [address] James Crowley DIPHTHEROIDS Normal [facility] Comment on above: Performed By: #### H ISTGAL #### [facility] [address] [place] [address] Dr. James Crowley EPITHELIALS <25 Normal [facility] Comment on above: Performed By: #### H ISTGAL #### [facility] [address] [address] [address] James Crowley FUNGAL ELEMENTS Normal [facility] Comment on above: Performed By: #### H ISTGAL #### [facility] [address] [address] [address] James KAN NEG BACILLI Normal [facility] Comment on above: Performed By: #### H ISTGAL #### [facility] [address] [address] [address] James KAN NEG DIPPLOCOCCI FEW [facility] Comment on above: Performed By: #### H ISTGAL #### [facility] [address] [address] [address] James KAN POS BACILLI [facility] Comment on above: Performed By: #### H ISTGAL #### [facility] [address] [address] [address] James Crowley GRAM POSITIVE COCCI FEW Normal [facility] Comment on above: Performed By: #### H ISTGAL #### [facility] [address] [place], [place] [address] Dr. James Crowley WBC (Bld) [#/Vol] 10*3/uL Normal [facility] Comment on above: Performed By: #### H ISTGAL #### [facility] [address] [place], [place] [address] Dr. James Crowley XR RIBS RT PA [...] [place] CISNEROS Date: 2022-08-12 13:02 Normal [facility] Covid-19 PCR (CVDTB)on SARS-CoV-2 (COVID-19) RNA SOURAV+probe Ql (Unsp spec) Not detected Normal NOT DETECTED [facility] Comment on above: Result Comment: When [...] for this test is supported by the Branch Operation Evaluation Manager of Health and Human Service's declaration that [...] used). Performed By: #### C VDTBH #### [facility] [address] [place] [address] Dr. James Rey 03-24-2021 L - -------- Specimen: [id number] Received: 03/24/21 Status: BOSTON Dinah Num: [id number] Spec Type: Surgical Subm Dr: Bryan Quick MD Tissues: A Skin-Other than Cyst, tag, debridement or plastic repair (LT NASAL DORSUM) Procedures: HE Stain, Gross/Micro L4 -------- Patient Age/Sex Location Account Attending Physician -------- Mateo Stearns/Oj CÁRDENAS [id number] Bryan Quick MD -------- SPEC NUM: RECD: 03/24/21 STATUS: BOSTON MATHEWS NUM: [id number] FRANCISCA: 03/24/[address]: Bryan Quick MD ENTERED: 03/24/21 [facility] DR: SPEC TYPE: Surgical DEPT: S ORDERED: [...] microscopic findings support the above pathologic diagnosis. [id number] -------- -------- Specimen: Received: 03/24/21 Status: BOSTON Barnesalisa Num: [id number] Spec Type: Surgical Subm Dr: Bryan Quick MD Tissues: A Skin-Other than Cyst, tag, debridement or plastic repair (LT NASAL DORSUM) Procedures: HE Stain, Gross/Micro L4 -------- Patient: Mateo Stearns [id number] (Continued) -------- Signed (signature on file) Cindy Garcia MD 03/25/21 1824 [facility] Vital Signs Date Time Vital Sign Value Performing Clinician Facility 12-12-2024 09:53-0500 Body mass index (BMI) [Ratio] 22.69 kg/m2 MEI Dent MD Work Phone: [facility] 12-12-2024 09:53-0500 Body temperature 98.71 [degF] MEI Dent MD Work Phone: [facility] 12-12-2024 09:53-0500 Body weight 65.7 kg MEI Dent MD Work Phone: [facility] 12-12-2024 09:53-0500 Diastolic blood pressure 88 mm[Hg] MEI Dent MD Work Phone: [facility] 12-12-2024 09:53-0500 Heart rate 81 /min MEI Dent MD Work Phone: [facility] 12-12-2024 09:53-0500 Respiratory rate 18 /min MEI Dent MD Work Phone: [facility] 12-12-2024 09:53-0500 SaO2% (BldA) [Mass fraction] 90 % MEI Dent MD Work Phone: [facility] 12-12-2024 09:53-0500 Systolic blood pressure 131 mm[Hg] MEI Dent MD Work Phone: [facility] 11-02-2024 10:33-0500 Body temperature 98.4 [degF] MEI Dent MD Work Phone: [facility] 11-02-2024 10:33-0500 Diastolic blood pressure 82 mm[Hg] MEI Dent MD Work Phone: [facility] 11-02-2024 10:33-0500 Heart rate 100 /min MEI Dent MD Work Phone: [facility] 11-02-2024 10:33-0500 Respiratory rate 18 /min MEI Dent MD Work Phone: [facility] 11-02-2024 10:33-0500 SaO2% (BldA) [Mass fraction] 97 % MEI Dent MD Work Phone: [facility] 11-02-2024 10:33-0500 Systolic blood pressure 118 mm[Hg] MEI Dent MD Work Phone: [facility] 10-29-2024 10:28-0500 Body mass index (BMI) [Ratio] 23.38 kg/m2 MEI Dent MD Work Phone: [facility] 10-29-2024 10:28-0500 Body temperature 97.9 [degF] MEI Dent MD Work Phone: [facility] 10-29-2024 10:28-0500 Body weight 67.7 kg MEI Dent MD Work Phone: [facility] 10-29-2024 10:28-0500 Diastolic blood pressure 84 mm[Hg] MEI Dent MD Work Phone: [facility] 10-29-2024 10:28-0500 Heart rate 81 /min MEI Dent MD Work Phone: [facility] 10-29-2024 10:28-0500 Respiratory rate 18 /min MEI Dent MD Work Phone: [facility] 10-29-2024 10:28-0500 SaO2% (BldA) [Mass fraction] 95 % MEI Dent MD Work Phone: [facility] 10-29-2024 10:28-0500 Systolic blood pressure 126 mm[Hg] MEI Dent MD Work Phone: [facility] 10-22-2024 10:26-0500 Body mass index (BMI) [Ratio] 23.34 kg/m2 MEI Dent MD Work Phone: [facility] 10-22-2024 10:26-0500 Body temperature 97.11 [degF] MEI Dent MD Work Phone: [facility] 10-22-2024 10:26-0500 Body weight 67.6 kg MEI Dent MD Work Phone: [facility] 10-22-2024 10:26-0500 Diastolic blood pressure 81 mm[Hg] MEI Dent MD Work Phone: [facility] 10-22-2024 10:26-0500 Heart rate 71 /min MEI Dent MD Work Phone: [facility] 10-22-2024 10:26-0500 Respiratory rate 18 /min MEI Dent MD Work Phone: [facility] 10-22-2024 10:26-0500 SaO2% (BldA) [Mass fraction] 91 % MEI Dent MD Work Phone: [facility] 10-22-2024 10:26-0500 Systolic blood pressure 127 mm[Hg] MEI Dent MD Work Phone: [facility] 10-16-2024 10:59-0500 Body height 175.3 cm Kathie Sánchez NP Work Phone: [facility] 10-16-2024 10:59-0500 Body mass index (BMI) [Ratio] 22.21 kg/m2 Kathie Huntermaciel [employer]ING [employer] TECHNICIAN Work Phone: [facility] 10-16-2024 10:59-0500 Body temperature 98.01 [degF] Kathie Villanuevacris [employer]ING [employer] TECHNICIAN Work Phone: [facility] 10-16-2024 10:59-0500 Body weight 68.22 kg Kathie Huntermaciel [employer]ING TO[employer] TECHNICIAN Work Phone: [facility] 10-16-2024 10:59-0500 Diastolic blood pressure 78 mm[Hg] Kathie Huntermaciel [employer]ING [employer] TECHNICIAN Work Phone: [facility] 10-16-2024 10:59-0500 Heart rate 78 /min Kathie Villanuevacris [employer]ING [employer] TECHNICIAN Work Phone: [facility] 10-16-2024 10:59-0500 Respiratory rate 20 /min Kathie Huntermaciel [employer]ING TOOL TECHNICIAN Work Phone: [facility] 10-16-2024 10:59-0500 SaO2% (BldA) [Mass fraction] 92 % Kathie Huntermaciel [employer]ING [employer] TECHNICIAN Work Phone: [facility] 10-16-2024 10:59-0500 Systolic blood pressure 110 mm[Hg] Kathie Villanuevacris [employer]ING [employer] TECHNICIAN Work Phone: [facility] 10-15-2024 10:45-0500 Body mass index (BMI) [Ratio] 23.45 kg/m2 MEI Dent MD Work Phone: [facility] 10-15-2024 10:45-0500 Body temperature 97.81 [degF] MEI Dent MD Work Phone: [facility] 10-15-2024 10:45-0500 Body weight 67.9 kg MEI Dent MD Work Phone: [facility] 10-15-2024 10:45-0500 Diastolic blood pressure 81 mm[Hg] MEI Dent MD Work Phone: [facility] 10-15-2024 10:45-0500 Heart rate 87 /min MEI Dent MD Work Phone: [facility] 10-15-2024 10:45-0500 Respiratory rate 16 /min MEI Dent MD Work Phone: [facility] 10-15-2024 10:45-0500 SaO2% (BldA) [Mass fraction] 95 % MEI Dent MD Work Phone: [facility] 10-15-2024 10:45-0500 Systolic blood pressure 121 mm[Hg] MEI Dent MD Work Phone: [facility] 10-08-2024 10:34-0500 Body mass index (BMI) [Ratio] 23.69 kg/m2 MEI Dent MD Work Phone: [facility] 10-08-2024 10:34-0500 Body temperature 96.69 [degF] MEI Dent MD Work Phone: [facility] 10-08-2024 10:34-0500 Body weight 68.6 kg MEI Dent MD Work Phone: [facility] 10-08-2024 10:34-0500 Diastolic blood pressure 76 mm[Hg] MEI Dent MD Work Phone: [facility] 10-08-2024 10:34-0500 Heart rate 103 /min EMI Dent MD Work Phone: [facility] 10-08-2024 10:34-0500 Respiratory rate 18 /min MEI Dent MD Work Phone: [facility] 10-08-2024 10:34-0500 SaO2% (BldA) [Mass fraction] 90 % MEI Dent MD Work Phone: [facility] 10-08-2024 10:34-0500 Systolic blood pressure 165 mm[Hg] MEI Dent MD Work Phone: [facility] 10-01-2024 10:42-0500 Body mass index (BMI) [Ratio] 23.34 kg/m2 MEI Dent MD Work Phone: [facility] 10-01-2024 10:42-0500 Body temperature 97.9 [degF] MEI Dent MD Work Phone: [facility] 10-01-2024 10:42-0500 Body weight 67.6 kg MEI Dent MD Work Phone: [facility] 10-01-2024 10:42-0500 Diastolic blood pressure 83 mm[Hg] MEI Dent MD Work Phone: [facility] 10-01-2024 10:42-0500 Heart rate 99 /min MEI Dent MD Work Phone: [facility] 10-01-2024 10:42-0500 Respiratory rate 18 /min MEI Dent MD Work Phone: [facility] 10-01-2024 10:42-0500 SaO2% (BldA) [Mass fraction] 87 % MEI Dent MD Work Phone: [facility] Comment on above: Wearing mask, Normal for him with mask o n 10-01-2024 10:42-0500 Systolic blood pressure 129 mm[Hg] MEI Dent MD Work Phone: [facility] 09-25-2024 14:15-0400 Body mass index (BMI) [Ratio] 23.17 kg/m2 MEI Dent MD Work Phone: [facility] 09-25-2024 14:15-0400 Body weight 67.1 kg MEI Dent MD Work Phone: [facility] 09-13-2024 10:27-0400 Body height 175.3 cm Kathie Sánchez NP Work Phone: [facility] 09-13-2024 10:27-0400 Body mass index (BMI) [Ratio] 21.8 kg/m2 Kathie Sánchez [employer] TECHNICIAN Work Phone: [facility] 09-13-2024 10:27-0400 Body temperature 98.4 [degF] Kathie Sánchez [employer]ING [employer] TECHNICIAN Work Phone: [facility] 09-13-2024 10:27-0400 Body weight 66.95 kg Kathie Sánchez [employer]ING [employer] TECHNICIAN Work Phone: [facility] 09-13-2024 10:27-0400 Heart rate 96 /min Kathie Sánchez [employer]ING [employer] TECHNICIAN Work Phone: [facility] 09-13-2024 10:27-0400 Respiratory rate 10 /min Kathie Minayaelder [employer]ING [employer] TECHNICIAN Work Phone: [facility] 09-13-2024 10:27-0400 SaO2% (BldA) [Mass fraction] 97 % Kathie Minayaelder [employer]ING [employer] TECHNICIAN Work Phone: [facility] 09-11-2024 13:33-0400 Body mass index (BMI) [Ratio] 23.51 kg/m2 MEI Dent MD Work Phone: [facility] 09-11-2024 13:33-0400 Body temperature 97.81 [degF] MEI Dent MD Work Phone: [facility] 09-11-2024 13:33-0400 Body weight 68.1 kg MEI Dent MD Work Phone: [facility] 09-11-2024 13:33-0400 Diastolic blood pressure 82 mm[Hg] MEI Dent MD Work Phone: [facility] 09-11-2024 13:33-0400 Heart rate 80 /min MEI Dent MD Work Phone: [facility] 09-11-2024 13:33-0400 Respiratory rate 18 /min MEI Dent MD Work Phone: [facility] 09-11-2024 13:33-0400 SaO2% (BldA) [Mass fraction] 94 % MEI Dent MD Work Phone: [facility] 09-11-2024 13:33-0400 Systolic blood pressure 146 mm[Hg] MEI Dent MD Work Phone: [facility] 07-12-2024 13:06-0400 Body mass index (BMI) [Ratio] 23.41 kg/m2 MEI Dent MD Work Phone: [facility] 07-12-2024 13:06-0400 Body temperature 98.1 [degF] MEI Dent MD Work Phone: [facility] 07-12-2024 13:06-0400 Body weight 67.8 kg MEI Dent MD Work Phone: [facility] 07-12-2024 13:06-0400 Diastolic blood pressure 83 mm[Hg] MEI Dent MD Work Phone: [facility] 07-12-2024 13:06-0400 Heart rate 95 /min MEI Dent MD Work Phone: [facility] 07-12-2024 13:06-0400 Respiratory rate 18 /min MEI Dent MD Work Phone: [facility] 07-12-2024 13:06-0400 SaO2% (BldA) [Mass fraction] 95 % MEI Dent MD Work Phone: [facility] 07-12-2024 13:06-0400 Systolic blood pressure 157 mm[Hg] MEI Dent MD Work Phone: [facility] 06-21-2024 13:13-0400 Body height 170.2 cm MEI Dent MD Work Phone: [facility] 06-21-2024 13:13-0400 Body mass index (BMI) [Ratio] 23.41 kg/m2 MEI Dent MD Work Phone: [facility] 06-21-2024 13:13-0400 Body temperature 97.5 [degF] MEI Dent MD Work Phone: [facility] 06-21-2024 13:13-0400 Body weight 67.8 kg NA Manolo CHANDLER Work Phone: [facility] 06-21-2024 13:13-0400 Diastolic blood pressure 75 mm[Hg] MEI Dent MD Work Phone: [facility] 06-21-2024 13:13-0400 Heart rate 86 /min MEI Dent MD Work Phone: [facility] 06-21-2024 13:13-0400 Respiratory rate 20 /min MEI Dent MD Work Phone: [facility] 06-21-2024 13:13-0400 SaO2% (BldA) [Mass fraction] 95 % MEI Dent MD Work Phone: [facility] 06-21-2024 13:13-0400 Systolic blood pressure 124 mm[Hg] MEI Dent MD Work Phone: [facility] 06-01-2024 13:13-0400 Body height 175.3 cm Amandeep Crisostomo MD Work Phone: [facility] 06-01-2024 13:13-0400 Body mass index (BMI) [Ratio] 22.14 kg/m2 Amandeep Crisostomo MD Work Phone: [facility] 06-01-2024 13:13-0400 Body weight 68 kg Amandeep Crisostomo MD Work Phone: [facility] 06-01-2024 13:13-0400 Diastolic blood pressure 81 mm[Hg] Amandeep Crisostomo MD Work Phone: [facility] 06-01-2024 13:13-0400 Heart rate 88 /min Amandeep Crisostomo MD Work Phone: [facility] 06-01-2024 13:13-0400 Systolic blood pressure 138 mm[Hg] Amandeep Crisostomo MD Work Phone: [facility] 05-21-2024 11:35-0400 Blood Pressure Location Rufina VORA [facility] 05-21-2024 11:35-0400 Body temperature 98.6 [degF] Rufina VORA [facility] 05-21-2024 11:35-0400 Diastolic blood pressure 84 mm[Hg] Rufina VORA [facility] 05-21-2024 11:35-0400 Heart rate 76 /min Rufina VORA [facility] 05-21-2024 11:35-0400 Respiratory rate 16 /min Rufina VORA [facility] 05-21-2024 11:35-0400 Systolic blood pressure 139 mm[Hg] Rufina [facility]OR[facility] of [facility] 06-06-2023 10:36-0400 Blood Pressure Location Rufina VORA [facility] 06-06-2023 10:36-0400 Diastolic blood pressure 76 mm[Hg] Rufina VORA [facility] 06-06-2023 10:36-0400 Heart rate 72 /min Rufina VORA [facility] 06-06-2023 10:36-0400 Respiratory rate 16 /min Rufina VORA [facility] 06-06-2023 10:36-0400 Systolic blood pressure 130 mm[Hg] Rufina VORA [facility] 02-07-2023 12:42-0400 Blood Pressure Location Rufina VORA [facility] 02-07-2023 12:42-0400 Diastolic blood pressure 77 mm[Hg] Rufina VORA [facility] 02-07-2023 12:42-0400 Heart rate 74 /min Rufina VORA [facility] 02-07-2023 12:42-0400 Systolic blood pressure 138 mm[Hg] Rufina VORA [facility] 05-17-2022 12:56-0400 Blood Pressure Location Rufinamichelle VORA [facility] 05-17-2022 12:56-0400 Diastolic blood pressure 87 mm[Hg] Rufina VORA [facility] 05-17-2022 12:56-0400 Heart rate 79 /min Rufinamichelle VORA [facility] 05-17-2022 12:56-0400 Respiratory rate 16 /min Rufina VORA [facility] 05-17-2022 12:56-0400 Systolic blood pressure 139 mm[Hg] Rufina VORA [facility] Encounters Encounter Date Encounter Type Care Provider Facility Start: 02-22-2025 End: 02-22-2025 Telephone encounter Kathie Sánchez OIL WELL FISHING TOOL TECHNICIAN Work Phone: [facility] Comment on above: Nausea (Primary Dx) Start: 02-11-2025 End: 02-11-2025 Clinisync Result Encounter Generic External Data Provider [facility] External Department Unsolicited Start: 02-11-2025 End: 02-11-2025 Clinisync Result Encounter Generic External Data Provider [facility] External Department Unsolicited Start: 01-18-2025 End: 01-18-2025 ambulatory Rufina VORA Facility:[facility] Start: 01-18-2025 End: 01-18-2025 Patient encounter procedure Rufina VORA [facility] Start: 01-11-2025 End: 01-11-2025 ambulatory Rufina VORA Facility:[facility] Start: 01-11-2025 End: 01-11-2025 Patient encounter procedure Rufina VORA [facility] Start: 01-02-2025 End: 01-02-2025 Bamboo flowsheet Karen Valdovinos DO Work Phone: [facility] Start: 01-02-2025 End: 01-02-2025 Bamboo flowsheet Karen Valdovinos DO Work Phone: [facility] Start: 01-02-2025 End: 01-02-2025 ambulatory KAREN VALDOVINOS Not Available Start: 12-12-2024 End: 12-12-2024 ambulatory Severo DENT Facility:[facility] Start: 12-12-2024 End: 12-12-2024 Patient [...] 11-26-2024 End: 11-26-2024 Social Work [facility] Hematology/Oncology Start: 11-02-2024 End: 11-09-2024 Radiation Oncology Note Severo Dent MD Work Phone: Radiation Oncology Comment on above: Completion Note Start: 11-02-2024 End: 11-09-2024 Patient encounter procedure Severo Dent MD Work Phone: Radiation Oncology Comment on above: Malignant neoplasm o f prostate (HCC) (Primary Dx) Start: 11-02-2024 End: 11-02-2024 ambulatory Severo DENT Facility:[facility] Start: 11-01-2024 End: 11-01-2024 ambulatory Severo DENT Facility:[facility] Start: 10-31-2024 End: 10-31-2024 ambulatory Severo DENT Facility:[facility] Start: 10-30-2024 End: 10-30-2024 ambulatory Severo DENT Facility:[facility] Start: 10-29-2024 End: 10-29-2024 Patient encounter procedure Severo Dent MD Work Phone: Radiation Oncology Comment on above: Malignant neoplasm o f prostate (HCC) (Primary Dx) Start: 10-29-2024 End: 10-29-2024 ambulatory Severo DENT Facility:[facility] Start: 10-26-2024 End: 10-26-2024 Social Work [facility] Hematology/Oncology Start: 10-24-2024 End: 10-24-2024 ambulatory Severo DENT Facility:[facility] Start: 10-23-2024 End: 10-23-2024 ambulatory Severo DENT Facility:[facility] Start: 10-22-2024 End: 10-22-2024 Patient encounter procedure Severo Dent MD Work Phone: Radiation Oncology Comment on above: Malignant neoplasm o f prostate (HCC) (Primary Dx) Start: 10-22-2024 End: 10-22-2024 ambulatory Severo DENT Facility:[facility] Start: 10-21-2024 End: 10-21-2024 ambulatory Severo DENT Facility:[facility] Start: 10-19-2024 End: 10-19-2024 ambulatory Severo DENT Facility:[facility] Start: 10-18-2024 End: 10-18-2024 ambulatory Severo DENT Facility:[facility] Start: 10-17-2024 End: 10-17-2024 ambulatory Severo DENT Facility:[facility] Start: 10-16-2024 End: 10-16-2024 Bamboo flowsheet Kathie Sánchez OIL WELL FISHING TOOL TECHNICIAN Work Phone: [facility] Start: 10-16-2024 End: 10-16-2024 Bamboo flowsheet Kathie Sánchez OIL WELL FISHING TOOL TECHNICIAN Work Phone: [facility] Start: 10-16-2024 End: 10-16-2024 Office outpatient visit 15 minutes Kathie Sánchez NP Work Phone: [facility] Comment on above: DDD (degenerative di sc disease), cervical (Primary Dx); Atrial fibrillation (CMS/HCC); Gastro-esophageal reflux disease without esophagitis; Prostate cancer (CMS/HCC) Start: 10-16-2024 End: 10-16-2024 ambulatory Severo DENT Facility:[facility] Start: 10-15-2024 End: 10-15-2024 Patient encounter procedure Severo Dent MD Work Phone: Radiation Oncology Comment on above: Malignant neoplasm o f prostate (HCC) (Primary Dx) Start: 10-15-2024 End: 10-15-2024 ambulatory Severo DENT Facility:[facility] Start: 10-12-2024 End: 10-12-2024 ambulatory Severo DENT Facility:[facility] Start: 10-11-2024 End: 10-11-2024 Clinisync Result Encounter Generic External Data Provider [facility] External Department Unsolicited Start: 10-11-2024 End: 10-11-2024 Clinisync Result Encounter Generic External Data Provider [facility] External Department Unsolicited Start: 10-11-2024 End: 10-11-2024 Patient encounter procedure Lab/Jacky Perez Work Phone: Radiation Oncology Comment on above: Malignant neoplasm o f prostate (HCC) Start: 10-11-2024 End: 10-11-2024 ambulatory Severo GOPAL DENT Facility:[facility] Start: 10-10-2024 End: 10-10-2024 ambulatory Severo DENT Facility:[facility] Start: 10-09-2024 End: 10-09-2024 ambulatory Severo GOPAL DENT Facility:[facility] Start: 10-08-2024 End: 10-08-2024 Patient encounter procedure Severo Dent MD Work Phone: Radiation Oncology Comment on above: Malignant neoplasm o f prostate (HCC) (Primary Dx) Start: 10-08-2024 End: 10-08-2024 ambulatory Severo GOPAL DENT Facility:[facility] Start: 10-05-2024 End: 10-05-2024 ambulatory Severo GOPAL DENT Facility:[facility] Start: 10-04-2024 End: 10-05-2024 ambulatory KATHIE SÁNCHEZ Facility:[facility] Start: 10-04-2024 End: 10-04-2024 Patient encounter procedure Lab/[place] Perez Work Phone: Radiation Oncology Comment on above: Malignant neoplasm o f prostate (HCC) Start: 10-04-2024 End: 10-04-2024 Clinisync Result Encounter Generic External Data Provider [facility] External Department Unsolicited Start: 10-04-2024 End: 10-04-2024 Clinisync Result Encounter Generic External Data Provider [facility] External Department Unsolicited Start: 10-03-2024 End: 10-03-2024 ambulatory Severo DENT Facility:[facility] Start: 10-02-2024 End: 10-02-2024 ambulatory Severo DENT Facility:[facility] Start: 10-01-2024 End: 10-01-2024 Patient encounter procedure Severo Dent MD Work Phone: Radiation Oncology Comment on above: Malignant neoplasm o f prostate (HCC) (Primary Dx) Start: 10-01-2024 End: 10-01-2024 ambulatory Severo EDNT Facility:[facility] Start: 09-28-2024 End: 09-28-2024 ambulatory Severo DENT Facility:[facility] Start: 09-27-2024 End: 09-27-2024 ambulatory Severo DENT Facility:[facility] Start: 09-26-2024 End: 09-26-2024 ambulatory Severo DENT Facility:[facility] Start: 09-25-2024 End: 09-25-2024 Social Work [facility] Hematology/Oncology Comment on above: Malignant neoplasm o f prostate (HCC) (Primary Dx) Start: 09-24-2024 End: 09-24-2024 Telephone encounter Severo Dent MD Work Phone: Radiation Oncology Comment on above: Orders (CBC ) Start: 09-18-2024 End: 09-18-2024 Social Work [facility] Hematology/Oncology Start: 09-17-2024 End: 09-27-2024 Radiation Oncology Note Severo Dent MD Work Phone: Radiation Oncology Comment on above: Simulation Note Treatment Planning Start: 09-17-2024 End: 09-18-2024 ambulatory Severo DENT Facility:[facility] Start: 09-17-2024 End: 09-27-2024 Patient encounter procedure Severo Dent MD Work Phone: Radiation Oncology Comment on above: Malignant neoplasm o f prostate (HCC) (Primary Dx) Start: 09-14-2024 End: 09-14-2024 Telephone encounter Severo Dent MD Work Phone: Radiation Oncology Comment on above: Financial Questions Start: 09-13-2024 End: 09-13-2024 Bamboo flowsheet Kathie Sánchez OIL WELL FISHING TOOL TECHNICIAN Work Phone: [facility] Start: 09-13-2024 End: 09-13-2024 Bamboo flowsheet Kathie Sánchez OIL WELL FISHING TOOL TECHNICIAN Work Phone: [facility] Start: [...] Start: 07-12-2024 End: 07-12-2024 ambulatory Severo DENT Facility:[facility] Start: 07-12-2024 End: 07-12-2024 Patient encounter procedure Severo Dent MD Work Phone: Radiation Oncology Comment on above: Malignant neoplasm o f prostate (HCC) (Primary Dx) Start: 06-21-2024 End: 06-21-2024 ambulatory RUFINA VORA Facility:[facility] Start: 06-21-2024 End: 06-21-2024 Patient encounter procedure Severo Dent MD Work Phone: Radiation Oncology Comment on above: Malignant neoplasm o f prostate (HCC) (Primary Dx) Start: 06-01-2024 End: 06-01-2024 ambulatory Amandeep Crisostomo MD Work Phone: Urology Start: 06-01-2024 End: 06-01-2024 Patient encounter procedure Amandeep Crisotsomo MD Work Phone: Urology Comment on above: Prostate cancer (HCC ) (Primary Dx) Start: 05-21-2024 End: 05-21-2024 ambulatory Rufina VORA Facility:[facility] Start: 05-21-2024 End: 05-21-2024 Patient encounter procedure Rufina VORA [facility] Start: 05-01-2024 End: 05-01-2024 ambulatory Rufina VORA [place] Start: 05-01-2024 End: 05-01-2024 Patient encounter procedure Rufina VORA [facility] Start: 02-28-2024 Patient encounter procedure Generic Provider [facility] Start: 02-28-2024 End: 02-28-2024 ambulatory KATHIE SÁNCHEZ Not Available Start: 01-05-2024 Clinisync Result Encounter Generic External Data Provider [facility] External Department Unsolicited Start: 01-05-2024 Clinisync Result Encounter Generic External Data Provider [facility] External Department Unsolicited Start: 01-02-2024 End: 01-02-2024 ambulatory Rufina VORA Facility:[facility] Start: 07-22-2023 ambulatory Rufina VORA Facili ty:[facility] Start: 06-06-2023 End: 06-06-2023 ambulatory Rufina VORA Facility:[facility] Start: 06-06-2023 End: 06-06-2023 Patient encounter procedure Rufina VORA [facility] Start: 05-17-2023 End: 05-17-2023 Patient encounter procedure Rufina VORA [facility] Start: 04-12-2023 End: 04-13-2023 ambulatory SEASONAL CUSTOMER SERVICE ASSOCIATE KATHIE SÁNCHEZ Facility:[facility] Start: 04-08-2023 End: 04-09-2023 ambulatory PROMISE SÁNCHEZ Facility:[facility] Start: 02-07-2023 End: 02-07-2023 Patient encounter procedure Rufina VORA [facility] Start: 01-04-2023 End: 01-05-2023 ambulatory PROMISE SÁNCHEZ Facility:[facility] Start: 10-07-2022 End: 10-08-2022 ambulatory SEASONAL CUSTOMER SERVICE ASSOCIATE KATHIE SÁNCHEZ Facility:[facility] Start: 08-18-2022 End: 08-19-2022 ambulatory ROBERTO JOSELYN . Facility:[facility] Start: 08-12-2022 End: 08-12-[address] ELSA RAE . Facility:[facility] Start: 07-20-2022 End: 08-11-2022 Pre-admission assessment Rufina VORA [facility] Start: 05-17-2022 End: 06-16-2022 Pre-admission assessment Rufina VORA [facility] Start: 05-17-2022 End: 05-17-2022 Patient encounter procedure Rufina VORA [facility] Start: 05-03-2022 End: 05-03-2022 ambulatory ROBERTO ALVES . Facility:[facility] Start: 03-24-2021 End: 03-24-2021 Departed Referred Bryan Abdelrahman Work Phone: [facility] [place] Procedures Date Procedure Procedure Detail Performing Clinician Start: 02-11-2025 Radex hip unilateral with pelvis 2-3 views Generic External Data Provider Start: 01-02-2025 Oph bmtry prtl coher intrfrmtry io lens pwr erna Valdovinos DO Work Phone: Start: 01-02-2025 End: 01-02-2025 [facility] medical xm&eval compre new pt 1/> [...] Comment on above: Performed By: #### [facility] #### [facility] [address] [place] [address] Dr. James Crowley Start: 10-19-2022 Colonoscopy Generic [...] DTaP,Tdap,Td Vaccine (2 - Td or Tdap) [facility] Start: 12-05-2029 Prostate specific antigen measurement Prostate Cancer Screening Discussion [facility] Start: 09-07-2029 Prostate specific antigen measurement Prostate Cancer Screening Discussion [facility] Start: 06-12-2025 End: 06-12-2025 ambulatory 06/12/2025 11:00 AM EDT Visit (SP) Office Hematology/Oncology [address] [place] [address] Cat Baker APRN.SEASONAL CUSTOMER SERVICE ASSOCIATE [address] [place] [address] survivorship Hematology/Oncology Comment on above: survivorship Start: 06-12-2025 End: 06-12-2025 Patient encounter procedure 06/12/2025 10:30 AM EDT Office Visit Radiation Oncology [address] [place] [address] Severo Dent MD [address] [place] [address] 6 month Follow up Radiation Oncology Comment on above: 6 month Follow up Start: 06-11-2025 End: 09-10-2025 Prostate specific Ag [Mass/volume] in Serum or Plasma PROSTATE-SPECIFIC ANTIGEN DIAGNOSTIC Lab Routine Malignant neoplasm of prostate (HCC) Expected: 06/11/2025 (Approximate), Expires: 09/10/2025 [facility] Work Phone: Comment on above: Expected: 06/11/2025 (Approximate), Expires: 09/10/2025 Start: 02-27-2025 Medicare Annual Well ness (AWV) Medicare Annual Wellness (AWV) [facility] Start: 02-27-2025 Pneumococcal Vaccine : 65+ Years (1 of 2 - PCV) Pneumococcal Vaccine: 65+ Years (1 of 2 - PCV) [facility] Comment on above: Postponed from 07/21 (Patient Refused) Start: 02-25-2025 End: 02-25-2025 Patient encounter procedure 02/25/2025 10:00 AM EDT Office Visit [facility] [address] [place] [address] Ratna Craven, OIL WELL FISHING TOOL TECHNICIAN [address] [place] [address] [facility] Start: 01-08-2025 End: 01-08-2025 Patient encounter procedure 01/08/2025 9:00 AM EST Office Visit [facility] [address] [place] [address] Kathie Sánchez, DONALD [address] [place] [phone] [facility] Start: 01-02-2025 End: 01-02-2025 Patient encounter procedure [facility] Comment on above: Arrived Start: 12-17-2024 End: 12-17-2024 Patient encounter procedure 12/17/2024 9:40 AM EST Office Visit [facility] [address] [place] [address] Kathie Sánchez, OIL WELL FISHING TOOL TECHNICIAN [address] [place] [phone] [facility] Start: 12-12-2024 End: 12-12-2024 Patient encounter procedure 12/12/2024 10:00 AM EST Office Visit Radiation Oncology [address] [place] [address] [place] [address] Severo Dent MD [address] [place] [address] 3-4 week follow up Radiation Oncology Comment on above: 3-4 week follow up Start: 11-30-2024 End: 11-30-2024 Patient encounter procedure Radiation Oncology Comment on above: 3-4 week follow up Start: 11-28-2024 Advance Directive Discussion Advance Directive Discussion [facility] Start: 11-27-2024 End: 02-26-2025 Prostate specific Ag [Mass/volume] in Serum or Plasma PROSTATE-SPECIFIC ANTIGEN DIAGNOSTIC Lab Routine Malignant neoplasm of prostate (HCC) Expected: 11/27/2024, Expires: 02/26/2025 [facility] Work Phone: Comment on above: Expected: 11/27/2024 , Expires: 02/26/2025 Start: 11-23-2024 End: 11-23-2024 Patient encounter procedure 11/23/2024 10:00 AM EST Office Visit [facility] [address] [place] [address] labs [facility] Comment on above: labs Start: 11-02-2024 End: 11-02-2024 Patient encounter procedure 11/02/2024 10:15 AM EST Appointment Radiation Oncology [address] [place] [address] Prostate Radiation Oncology Comment on above: Prostate Start: 11-01-2024 End: 11-01-2024 Patient encounter procedure Radiation Oncology Comment on above: Prostate FINAL OTV Fx Start: 10-31-2024 End: 10-31-2024 Patient encounter procedure 10/31/2024 10:15 AM EST Appointment Radiation Oncology [address] [place] [address] Prostate Radiation Oncology Comment on above: Prostate Start: 10-30-2024 End: 10-30-2024 Patient encounter procedure 10/30/2024 10:15 AM EST Appointment Radiation Oncology [address] [place] [address] Prostate Radiation Oncology Comment on above: Prostate Start: 10-29-2024 End: 10-29-2024 Patient encounter procedure Radiation Oncology Comment on above: Prostate Location: [facility] Start: 10-24-2024 End: 10-24-2024 Patient encounter procedure 10/24/2024 10:15 AM EST Appointment Radiation Oncology [address] [place] [address] Prostate Radiation Oncology Comment on above: Prostate Start: 10-23-2024 End: 10-23-2024 Patient encounter procedure 10/23/2024 10:15 AM EST Appointment Radiation Oncology [address] [place] [address] Prostate Radiation Oncology Comment on above: Prostate Start: 10-22-2024 End: 10-22-2024 Patient encounter procedure Radiation Oncology Comment on above: Prostate Location: [facility] Start: 10-21-2024 End: 10-21-2024 Patient encounter procedure 10/21/2024 10:15 AM EST Appointment Radiation Oncology [address] [place] [address] Prostate Radiation Oncology Comment on above: Prostate Start: 10-19-2024 End: 10-19-2024 Patient encounter procedure 10/19/2024 10:15 AM EST Appointment Radiation Oncology [address] [place] [address] Prostate Radiation Oncology Comment on above: Prostate Start: 10-18-2024 End: 10-18-2024 Patient encounter procedure 10/18/2024 10:15 AM EST Appointment Radiation Oncology [address] [place] [address] Prostate Radiation Oncology Comment on above: Prostate Start: 10-17-2024 End: 10-17-2024 Patient encounter procedure 10/17/2024 10:15 AM EST Appointment Radiation Oncology [address] [place] [address] Prostate Radiation Oncology Comment on above: Prostate [...] 10:15 AM EST Appointment Radiation Oncology [address] [place] [address] Prostate Radiation Oncology Comment on above: Prostate Start: 10-11-2024 End: 01-10-2025 CBC W Auto Differential panel - Blood COMPLETE BLOOD COUNT AND DIFFERENTIAL Lab Routine Malignant neoplasm of prostate (HCC) Expected: 10/11/2024, Expires: 01/10/2025 [facility] Work Phone: Comment on above: Expected: 10/11/2024 , Expires: 01/10/2025 Start: 10-11-2024 End: 10-11-2024 Patient encounter procedure 10/11/2024 10:30 AM EST Appointment Radiation Oncology [address] [place] [address] Prostate Radiation Oncology Comment on above: Prostate Start: 10-10-2024 End: 10-10-2024 Patient encounter procedure 10/10/2024 10:30 AM EST Appointment Radiation Oncology [address] [place] [address] Prostate Radiation Oncology Comment on above: Prostate Start: 10-09-2024 End: 10-09-2024 Patient encounter procedure 10/09/2024 10:30 AM EST Appointment Radiation Oncology [address] [place] [address] Prostate Radiation Oncology Comment on above: Prostate Start: 10-08-2024 End: 10-08-2024 Patient encounter procedure Radiation Oncology Comment on above: Prostate Location: [facility] Start: 10-05-2024 End: 10-05-2024 Patient encounter procedure 10/05/2024 10:15 AM EST Appointment Radiation Oncology [address] [place] [address] Prostate Radiation Oncology Comment on above: Prostate Start: 10-04-2024 End: 10-04-2024 Patient encounter procedure 10/04/2024 2:15 PM EST Appointment Radiation Oncology [address] [place] [address] Prostate - appt in [place] before Radiation Oncology Comment on above: Prostate - appt in [place] before Start: 10-04-2024 End: 01-03-2025 CBC W Auto Differential panel - Blood COMPLETE BLOOD COUNT AND DIFFERENTIAL Lab Routine Malignant neoplasm of prostate (HCC) Expected: 10/04/2024, Expires: 01/03/2025 [facility] Work Phone: Comment on above: Expected: 10/04/2024 , Expires: 01/03/2025 Start: 10-04-2024 End: 10-04-2024 Patient encounter procedure 10/04/2024 10:15 AM EST Appointment Radiation Oncology [address] [place] [address] Prostate Radiation Oncology Comment on above: Prostate Start: 10-03-2024 End: 10-03-2024 Patient encounter procedure 10/03/2024 10:15 AM EST Appointment Radiation Oncology [address] [place] [address] Prostate Radiation Oncology Comment on above: Prostate Start: 10-02-2024 End: 10-02-2024 Patient encounter procedure 10/02/2024 10:15 AM EST Appointment Radiation Oncology [address] [place] [address] Prostate Radiation Oncology Comment on above: Prostate Start: 10-01-2024 End: 10-01-2024 Patient encounter procedure Radiation Oncology Comment on above: Prostate Location: [facility] Start: 09-28-2024 End: 09-28-2024 Patient encounter procedure 09/28/2024 2:45 PM EDT Appointment Radiation Oncology [address] [place] [address] Prostate Radiation Oncology Comment on above: Prostate Start: 09-27-2024 End: 09-27-2024 Patient encounter procedure 09/27/2024 2:45 PM EDT Appointment Radiation Oncology [address] [place] [address] Prostate Radiation Oncology Comment on above: Prostate Start: 09-26-2024 End: 09-26-2024 Patient encounter procedure 09/26/2024 11:30 AM EDT Appointment Radiation Oncology [address] [place] [address] Prostate Radiation Oncology Comment on above: Prostate Start: 09-25-2024 End: 09-25-2024 Patient encounter procedure Radiation Oncology Comment on above: NEW START PROSTATE Prostate - would lik e :10:45 Start: 09-21-2024 End: 12-21-2024 Prostate specific Ag [Mass/volume] in Serum or Plasma PROSTATE-SPECIFIC ANTIGEN DIAGNOSTIC Lab Routine Malignant neoplasm of prostate (HCC) Expected: 09/21/2024, Expires: 12/21/2024 [facility] Work Phone: Comment on above: Expected: 09/21/2024 , Expires: 12/21/2024 Start: 09-18-2024 End: 09-18-2024 Patient encounter procedure 09/18/2024 9:00 AM EDT Office Visit Financial Clearance Phone Screening [facility] Financial Questions for upcoming treatments Financial Clearance [...] disease), cervical Expected: 09/13/2024 (Approximate), Ex[facility]: [facility]13/20[facility] Phone: Comment on above: Expected: 09/13/2024 (Approximate), Expires: 09/13/2025 Start: 09-13-2024 End: 09-13-2024 [facility] Comment on above: Other thrombophilia (CMS/HCC); Chronic respiratory failure with hypoxia (CMS/HCC); Abdominal aortic aneurysm, without rupture, unspecified (CMS/HCC); Thoracic aortic aneurysm, without rupture, unspecified (CMS/HCC); Atherosclerosis of aorta (CMS/HCC) Start: 09-11-2024 End: 09-11-2024 Patient encounter procedure 09/11/2024 1:45 PM EDT Office Visit Radiation Oncology [address] [place] [address] Severo Dent MD [address] [place] [address] 2 month rv Radiation Oncology Comment on above: 2 month rv Start: 07-29-2024 Covid-19 Vaccine ( season) Covid-19 Vaccine () [facility] Start: 07-29-2024 Influenza vaccination Influenza Vacc ine (#1) [facility] Start: 07-12-2024 End: 07-12-2024 Patient encounter procedure 07/12/2024 1:15 PM EDT Office Visit Radiation Oncology [address] [place] [address] Severo Dent MD [address] [place] [address] 3 week rv-Decipher results Radiation Oncology Comment on above: 3 week rv-Decipher r esults Start: 06-01-2024 End: 08-31-2024 Prostate specific Ag [Mass/volume] in Serum or Plasma PROSTATE-SPECIFIC ANTIGEN DIAGNOSTIC Lab Routine Prostate cancer (HCC) Expected: 06/01/2024, Expires: 08/31/2024 [facility] Work Phone: Comment on above: Expected: 06/01/2024 , Expires: 08/31/2024 Start: 11-28-2023 Advance Directive Discussion Advance Directive Discussion [facility] Start: 11-28-2023 Behavioral Health Screening Behavioral Health Screening [facility] Start: 07-29-2023 Covid-19 Vaccine ( season) Covid-19 Vaccine () [facility] Start: 07-29-2023 Influenza vaccination Influenza Vacc ine (#1) [facility] Start: 2023 Pneumococcal Vaccine : 65+ Years (1 - PCV) Pneumococcal Vaccine: 65+ Years (1 - PCV) [facility] Start: 2018 RSV Vaccine (1 - 1-d ose 60+ series) RSV Vaccine (1 - 1-dose 60+ series) [facility] Start: 2013 Prostate specific antigen measurement Prostate Cancer Screening Discussion [facility] Start: 2008 Screening for malign ant neoplasm of lung Lung Cancer Screening [facility] Start: 2003 Diabetes Screening Diabetes Screenin g [facility] Start: 2003 Screening for malign ant neoplasm of colon [facility] Start: 1993 Lipid panel Lipid Screening [facility] Start: 1988 Zoledronic acid therapy Alpha- 1 Antitrypsin Deficiency Screening [facility] Start: 1976 Annual PCP Team Associate [employer] sully Disease Visit Annual PCP Team Chronic Disease Visit [facility] Start: 1976 Anxiety Screening Anxiety Screening [facility] Start: 1976 Depression Screening Depression Scre ening [facility] Start: 1976 Hepatitis C screening Hepatitis C Sc caitning [facility] Start: 1976 HIV screening HIV Screening [facility] Start: 1976 Spirometry Spirometry [facility] Start: 1964 Pneumococcal Vaccine : 65+ (1 of 2 - PCV) Pneumococcal Vaccine: 65+ (1 of 2 - PCV) [facility] Start: 1958 Abdominal aortic aneurysm screening Abdominal Aortic Aneurysm Screening [facility] Start: 1958 Medicare Annual Well [...] Malignant neoplasm of prostate (HCC) Ordered: 09/17/2024 [facility] Work Phone: Comment on above: Ordered: 09/17/2024 End: 06-01-2025 Prostate specific Ag [Mass/volume] in Serum or Plasma PROSTATE-SPECIFIC ANTIGEN DIAGNOSTIC Lab Routine Prostate cancer (HCC) Every 6 months for 3 Occurrences starting 06/01/2024 until 06/01/2025 [facility] Comment on above: Every 6 months for 3 Occurrences starting 06/01/2024 until 06/01/2025 Immunizations Immunization Date Immunization Notes Care Provider Fa cility 08-17-2024 Pneumococcal Conjuga te PCV 20 Kathie Sánchez NP Work Phone: [facility] 08-17-2024 RSV, recombinant, protein subunit RSVpreF, adjuvant reconstitu, 120mcg/0.5mL, PF (Arexvy) Kathie Sánchez NP Work Phone: [facility] 09-17-2023 zoster vaccine recombinant Rufina VORA [facility] 07-04-2023 zoster vaccine recombinant Rufina VORA [facility] 09-25-2022 SARS-CoV-2 (COVID-19 ) [id number] Rufina VORA [facility] 05-26-2021 SARS-CoV-2 (COVID-19 ) mRNA BNT-162b2 vax Rufinamichelle VORA [facility] 05-05-2021 SARS-CoV-2 (COVID-19 ) mRNA BNT-162b2 vax Rufinamichelle VORA [facility] 03-11-2021 tetanus toxoid, redu liyah diphtheria toxoid, and acellular pertussis vaccine, adsorbed Rufina DIONY [facility] Payers Date Payer Category Payer Unknown [facility] ANTH MEDICARE ADVANTAGE O [id number] 2023-Present [phone] [address] [place] [id number] [facility] [id number] 2022 Medicare [facility] [employer] [id number] 2022-Present [address] [place] [id number] 2022 Medicare (Managed Care) [employer] [id number] 2020 Medicaid [id number] 1959 Medicaid [id number] 1959 Medicare [id number] 1959 Unknown [id number] 1958 Unknown [id number] 2.16.840.1.824443.3.579.2. 593 1958 Unknown [id number] 2.16.840.1.964448.3.579.2. 593 1958 Unknown [id number] 2.16.840.1.356166.3.579.2. 593 1958 Unknown [id number] 2.16.840.1.632930.3.579.2. 593 1958 Unknown [id number] 2.16.840.1.355126.3.579.2. 593 1958 Unknown [id number] 2.16.840.1.434773.3.579.2. 593 1958 Unknown [id number] 2.16.840.1.810643.3.579.2. 593 1958 Unknown [id number] 2.16.840.1.760495.3.579.2. 593 1958 Unknown [id number] 2.16.840.1.197551.3.579.2. 727 1958 Unknown [id number] 2.16.840.1.364157.3.579.2. 727 1958 Unknown [id number] 2.16.840.1.735177.3.579.2. 727 1958 Unknown [id number] 2.16.840.1.452713.3.579.2. 727 1958 Unknown [id number] 2.16.840.1.665858.3.579.2. 727 1958 Unknown [id number] 2.16.840.1.924833.3.579.2. 1259 1958 Unknown [id number] 2.16.840.1.080321.3.579.2. 1259 1958 Unknown [id number] 2.16.840.1.210490.3.579.2. 1259 1958 Unknown [id number] 2.16.840.1.335841.3.579.2. 9 1958 Unknown [id number] 2.16.840.1.531912.3.579.2. 727 1958 Unknown [id number] 2.16.840.1.890994.3.579.2. 727 Self-pay Self Pay [id number] Social History Date Type Detail Facility Tobacco smoking stat [facility] Unknown if ever smoked [facility] Start: 1960 Sex Assigned At Male F [facility] Start: 05-17-2022 End: 11-13-2023 Tobacco smoking status Ex-smoker (finding) [facility] Start: 11-13-2023 End: 02-28-2024 Sex Assigned At Male [facility] Tobacco smoking status Never [facility] Start: 11-28-1975 End: 11-28-2016 History of tobacco use Current smoker [facility] Start: 11-28-1975 End: 11-28-2016 History of tobacco use Cigarette Smoker [facility] Start: 11-13-2023 End: 02-28-2024 Cigarettes smoked current (pack per day) - Reported 2 [facility] Start: 11-13-2023 End: 01-02-2025 Alcohol intake Ex-drinker (finding) [facility] Start: 1960 Sex Assigned At Not on file [facility] Start: 05-16-2013 Tobacco smoking stat us GAIS Smokes tobacco daily [facility] Start: 05-16-2013 End: 09-11-2024 Tobacco use and exposure Smokeless tobacco non-user [facility] Start: 05-16-2013 Alcohol intake Current drinke r of alcohol (finding) [facility] Start: 06-21-2024 Alcohol Comment quit 2016 [facility] Within the last year , have you been afraid of your partner or ex-partner? No [facility] Do you belong to any clubs or organizations such as restorationist groups, unions, fraternal or athletic groups, or [...] 05-21-2024 Functional Status N/A [facility] 06-06-2023 Functional Status N/A [facility] 05-17-2023 Functional Status N/A [facility] 02-07-2023 Functional Status N/A [facility] 08-05-2022 N/A [facility] 06-11-2022 Functional Status N/A [facility] 05-17-2022 Functional Status N/A [facility] [place] Clinical Notes 05-17-2022 to 02-22-2025 [...] out a little more about that?? [place] [facility] 02-22-2025 Miscellaneous Notes Who is prescribing him reglan and for what reason? Maybe from the cancer doctor??? I am not sure who or why he is getting it. Can you find out a little more about that?? [place] documented in this encounter [facility] 01-02-2025 History of Present illness Narrative Images [...] Medications (Ophthalmic Agents) Medication Sig Dispense Refill Mtohhxwblqe-Qiranlgb-Acxtgvzmz 1-0.5-0.075 % solution Administer 1 drop into [...] Do not crush, chew, or split.. HYDROcodone-acetaminophen ([place]na) 5-325 MG tablet pantoprazole (ProtoNix) 40 MG [...] (Other) Past Medical History: Diagnosis Date Alcoholism ([facility]) Atrial fibrillation ([facility]) Azygos lobe Carpal tunnel syndrome, bilateral Centrilobular emphysema ([facility]) Chronic GERD 12/06/2023 Chronic hypoxemic respiratory failure ([facility]) Chronic lumbar radiculopathy Collapse of left lung 2014 (L) LUNG COLLAPSE / CHEST TUBE COPD (chronic obstructive pulmonary disease) ([facility]) 2016 COPD / IMFLAMMATION OF LUNG DENIES BLOODBORNE DISEASES Elevated PSA Gout, arthritis History of pneumothorax History of tobacco abuse Hyperlipidemia ([facility]) Lobular atelectasis Neuropathy Prostate cancer ([facility]) Right lower lobe lung mass [...] @ 11:08 AM Additional Tests Keratometry K1 Hollister K2 Hollister Right 42.25 2 43.50 92 Left 42.00 [...] +1.50 Type: OTC Manifest Refraction Sphere Cylinder Hollister Right Left +3.50 -2.00 094 Final Rx [...] different lens options were explained including the [id number] fees for any upgrades. Intraocular lens (IOL) [...] DIAGNOSIS: Prostate adenocarcinoma, initial PSA 4.46, biopsy Attapulgus score 3 + 3 = 6 (grade [...] by: Severo Dent MD cc: Kathie Sánchez, SEASONAL CUSTOMER SERVICE ASSOCIATE ([facility]) [address] [place] [address] No referring provider defined for this encounter. AUA 2 Mona Melvin RN documented in this encounter [facility] 11-26-2024 Note HNO ID: [id number] Author: [facility] NICOLAS LSW Service: ? Author Type: Prenatal Teacher Type: Progress Notes Filed: 11/26/2024 13:09 Note Text: SOCIAL WORK FOLLOW UP NOTE: [facility] Date of service:11/26/24 TOPICS ADDRESSED: community resources PLAN: Continue follow up as needed Assigned SW listed in Care Team tab: Yes SW completed and faxed October 2024 mileage reimbursement log to [facility]. SUSANNA Sotomayor [facility] 11-26-2024 History of Present illness Narrative SOCIAL WORK FOLLOW UP NOTE: [facility] Date of service:11/26/24 TOPICS ADDRESSED: community resources PLAN: Continue follow up as needed Assigned SW listed in Care Team tab: Yes SW completed and faxed October 2024 mileage reimbursement log to [facility]. SUSANNA Sotomayor documented in this encounter [facility] 11-02-2024 Note HNO ID: [id number] Author: Severo DENT MD Service: ? Author Type: Physician Type: Progress Notes Filed: 11/09/2024 11:44 Note Text: Radiation Oncology - On Treatment Review (OTR) Note PATIENT NAME: Mateo Stearns PATIENT DIAGNOSIS: Prostate adenocarcinoma, initial PSA 4.46, biopsy Attapulgus score 3 + 3 = 6 (grade [...] well. Follow-up as scheduled. Severo Dent MD [facility] 11-02-2024 History of Present illness Narrative Radiation Oncology - On Treatment Review (OTR) Note PATIENT NAME: Mateo Stearns PATIENT DIAGNOSIS: Prostate adenocarcinoma, initial PSA 4.46, biopsy Attapulgus score 3 + 3 = 6 (grade [...] Severo Dent MD documented in this encounter [facility] 11-02-2024 History of Present illness Narrative [facility] Radiation Oncology Department RADIATION ONCOLOGY - COMPLETION NOTE PATIENT: MATEO STEARNS: 1960 DATES OF TREATMENT: 09/25/24 - 11/02/24 DIAGNOSIS: Prostate adenocarcinoma, initial PSA 4.46, biopsy Attapulgus score 3 + 3 = 6 (grade [...] Sánchez, PROMISE Vora documented in this encounter [facility] 11-02-2024 Note HNO ID: [id number] Author: Severo DENT MD Service: ? Author Type: Physician Type: Progress Notes Filed: 11/08/2024 14:37 Note Text: [facility] Radiation Oncology Department RADIATION ONCOLOGY - COMPLETION NOTE PATIENT: MATEO STEARNS: 1960 DATES OF TREATMENT: 09/25/24 - 11/02/24 DIAGNOSIS: Prostate adenocarcinoma, initial PSA 4.46, biopsy Attapulgus score 3 + 3 = 6 (grade [...] Electronically Signed cc: Kathie Sánchez, PROMISE Vora [facility] 10-29-2024 Note HNO ID: [id number] Author: Severo DENT MD Service: ? Author Type: Physician Type: Progress Notes Filed: 10/29/2024 10:54 Note Text: Radiation Oncology - On Treatment Review (OTR) Note PATIENT NAME: Mateo Stearns PATIENT DIAGNOSIS: Prostate adenocarcinoma, initial PSA 4.46, biopsy Attapulgus score 3 + 3 = 6 (grade [...] week. Follow-up care discussed. Severo Dent MD [facility] 10-29-2024 History of Present illness Narrative [...] Severo Dent MD documented in this encounter [facility] 10-26-2024 Note HNO ID: [id number] Author: [facility] NICOLAS LSW Service: ? Author Type: Prenatal Teacher Type: Progress Notes Filed: 10/26/2024 10:44 Note Text: SOCIAL WORK FOLLOW UP NOTE[facility] Date of service:10/26/24 TOPICS ADDRESSED: community resources PLAN: Continue follow up as needed Assigned SW listed in Care Team tab: Yes SW completed and faxed September 2024 mileage reimbursement log to [facility] SUSANNA Sotomayor [facility] 10-26-2024 History of Present illness Narrative SOCIAL WORK FOLLOW UP NOTE: [facility] Date of service:10/26/24 TOPICS ADDRESSED: community resources PLAN: Continue follow up as needed Assigned SW listed in Care Team tab: Yes SW completed and faxed September 2024 mileage reimbursement log to [facility] SUSANNA Sotomayor documented in this encounter [facility] 10-22-2024 Note HNO ID: [id number] Author: Severo DENT MD Service: ? Author Type: Physician Type: Progress Notes Filed: 10/22/2024 10:51 Note Text: Radiation Oncology - On Treatment Review (OTR) Note PATIENT NAME: Mateo Stearns PATIENT DIAGNOSIS: Prostate adenocarcinoma, initial PSA 4.46, biopsy Attapulgus score 3 + 3 = 6 (grade [...] Continue radiation as outlined. Severo Dent MD [facility] 10-22-2024 History of Present illness Narrative Radiation Oncology - On Treatment Review (OTR) Note PATIENT NAME: Mateo Stearns PATIENT DIAGNOSIS: Prostate adenocarcinoma, initial PSA 4.46, biopsy Attapulgus score 3 + 3 = 6 (grade [...] Severo Dent MD documented in this encounter [facility] 10-16-2024 History of Present illness [...] Chronic GERD 12/06/2023 Chronic hypoxemic respiratory failure ([facility]/HCC) Chronic lumbar radiculopathy Collapse of [...] [facility] Note HNO ID: [id number] Author: Severo DENT MD Service: ? Author Type: Physician Type: Progress Notes Filed: 10/15/2024 15:22 Note Text: Radiation Oncology - On Treatment Review (OTR) Note PATIENT NAME: Mateo Stearns PATIENT DIAGNOSIS: Prostate adenocarcinoma, initial PSA 4.46, biopsy Attapulgus score 3 + 3 = 6 (grade [...] recheck in 2 weeks. Severo Dent MD [facility] 10-15-2024 History of Present illness Narrative [...] Severo Dent MD documented in this encounter [facility] 10-11-2024 Nurse Note Mateo Stearns presents in office today for: Lab Draw only . Ordering Provider: Gopal Dent M.D. Test (s) ordered: CBC Method for obtaining blood: Phlebotomy was performed, accessing left antecubital vein. Needle removed intact. Dressing secured. Patient denies discomfort, dizziness, light-headedness or weakness and left the department without assist. Dayanna Call LPN [facility] 10-11-2024 Nurse Note Mateo Stearns presents in office today for: Lab Draw only . Ordering Provider: Gopal Dent M.D. Test (s) ordered: CBC Method for obtaining blood: Phlebotomy was performed, accessing left antecubital vein. Needle removed intact. Dressing secured. Patient denies discomfort, dizziness, light-headedness or weakness and left the department without assist. Dayanna Call LPN documented in this encounter [facility] 10-08-2024 Note HNO ID: [id number] Author: Severo DENT MD Service: ? Author [...] WBC recheck this week. Severo Dent MD [facility] 10-08-2024 History of Present illness Narrative Radiation Oncology - On Treatment Review (OTR) Note PATIENT NAME: Mateo Stearns PATIENT DIAGNOSIS: Prostate adenocarcinoma, initial PSA 4.46, biopsy Attapulgus score 3 + 3 = 6 (grade [...] Severo Dent MD documented in this encounter [facility] 10-04-2024 Nurse Note Mateo Stearns presents in office today for: Lab Draw only . Ordering Provider: Gopal Dent M.D. Test (s) ordered: CBC Method for obtaining blood: Phlebotomy was performed, accessing left antecubital vein. Needle removed intact. Dressing secured. Patient denies discomfort, dizziness, light-headedness or weakness and left the department without assist. Dayanna Call LPN [facility] 10-04-2024 Nurse Note Mateo Stearns presents in office today for: Lab Draw only . Ordering Provider: Gopal Dent M.D. Test (s) ordered: CBC Method for obtaining blood: Phlebotomy was performed, accessing left antecubital vein. Needle removed intact. Dressing secured. Patient denies discomfort, dizziness, light-headedness or weakness and left the department without assist. Dayanna Call LPN documented in this encounter [facility] 10-01-2024 Note HNO ID: [id number] Author: Severo DENT MD Service: ? Author Type: Physician Type: Progress Notes Filed: 10/01/2024 10:51 Note Text: Radiation Oncology - On Treatment Review (OTR) Note PATIENT NAME: Mateo Stearns PATIENT DIAGNOSIS: Prostate adenocarcinoma, initial PSA 4.46, biopsy Attapulgus score 3 + 3 = 6 (grade [...] Continue radiation as outlined. Severo Dent MD [facility] 10-01-2024 History of Present illness Narrative [...] Severo Dent MD documented in this encounter [facility] 09-25-2024 Note HNO ID: [id number] Author: UMU NICOLAS LSW Service: ? Author Type: Prenatal Teacher Type: Progress Notes Filed: 09/25/2024 14:02 Note Text: SOCIAL WORK FOLLOW UP NOTE: [facility] Date of service:09/25/24 TOPICS ADDRESSED: community resources PLAN: Continue follow up as needed Assigned SW listed in Care Team tab: Yes SW completed and faxed a mileage reimbursement form on the Patient's behalf to [facility] for the month of August 2024. SUSANNA Sotomayor [facility] 09-25-2024 History of Present illness Narrative SOCIAL WORK FOLLOW UP NOTE: [facility] Date of service:09/25/24 TOPICS ADDRESSED: community resources PLAN: Continue follow up as needed Assigned SW listed in Care Team tab: Yes SW completed and faxed a mileage reimbursement form on the Patient's behalf to [facility] for the month of August 2024. SUSANNA Sotomayor documented in this encounter [facility] 09-25-2024 History of Present illness [...] Severo Dent MD documented in this encounter [facility] 09-25-2024 Note HNO ID: [id number] Author: Severo DENT MD Service: ? Author Type: Physician Type: Progress Notes Filed: 09/26/2024 16:56 Note Text: Radiation Oncology - On Treatment Review (OTR) Note PATIENT NAME: Mateo Stearns PATIENT DIAGNOSIS: Prostate adenocarcinoma, initial PSA 4.46, biopsy Attapulgus score 3 + 3 = 6 (grade [...] Continue radiation as prescribed. Severo Dent MD [facility] 09-24-2024 Telephone encounter Note CBC order pending your approval. Dayanna Call RN [facility] 09-24-2024 Miscellaneous Notes CBC order pending your approval. Dayanna Call RN documented in this encounter [facility] 09-18-2024 Note HNO ID: [id number] Author: [facility]MU NICOLAS LSW Service: ? Author Type: Prenatal Teacher Type: Progress Notes Filed: 09/18/2024 14:01 Note Text: SOCIAL WORK FOLLOW UP NOTE: [facility] Date of service:09/18/24 Mateo Stearns [...] will follow up as appropriate. SUSANNA Sotomayor [facility] 09-18-2024 History of Present illness Narrative SOCIAL WORK FOLLOW UP NOTE: [facility] Date of service:09/18/24 Mateo Stearns [...] appropriate. SUSANNA Sotomayor documented in this encounter [facility] 09-17-2024 History of Present illness Narrative MATEO STEARNS [id number] 09/17/2024 [facility] Radiation Oncology Department SIMULATION NOTE DATE OF SIMULATION: 09/17/2024 THERAPIST: Sabina Rico MACHINE: Codenomicon DIAGNOSIS: Malignant neoplasm of [id number] AREA: PELVIS CONTRAST: None <Select> Consent in [...] MARIUSZ 44:32 PM documented in this encounter [facility] 09-17-2024 History of Present illness Narrative MATEO STEARNS [id number] 09/17/2024 [facility] Department of Radiation Oncology Treatment Planning Note [...] M.D. 48:19 AM documented in this encounter [facility] 09-17-2024 Note HNO ID: [id number] Author: Severo DENT MD Service: ? Author Type: Physician Type: Progress Notes Filed: 09/18/2024 16:32 Note Text: MATEO STEARNS [id number] 09/17/2024 [facility] Radiation Oncology Department SIMULATION NOTE DATE OF SIMULATION: 09/17/2024 THERAPIST: Sbaina Rico MACHINE: Codenomicon DIAGNOSIS: Malignant neoplasm of [id number] AREA: PELVIS CONTRAST: None Consent in Epic: [...] Gopal Dent M.D. / MARIUSZ :32 PM [facility] 09-17-2024 Note HNO ID: [id number] Author: Severo DENT MD Service: ? Author Type: Physician Type: Progress Notes Filed: 09/26/2024 08:19 Note Text: MATEO STEARNS [id number] 09/17/2024 [facility] Department of Radiation Oncology Treatment Planning Note [...] Electronically Signed Gopal Dent M.D. :19 AM [facility] 09-14-2024 Telephone encounter Note I called and spoke with the Patient and I have him scheduled with a PFA appointment (Phone call) to discuss his Financial Questions on 09/18/24 at 9 am. DARRIUS Mckee [facility] 09-14-2024 Miscellaneous Notes I called [...] Mona Melvin RN documented in this encounter [facility] 09-14-2024 Telephone encounter Note PT [...] [facility]- please contact pt. Mona Melvin RN [facility] 09-13-2024 History of Present illness [...] NAME: Mateo Stearns PATIENT September 11, 2024 [facility] FACILITY/LOCATION: [facility] READINESS TO LEARN Cognitive Ability: [...] need for social work, van service, and registry rn. Was PED reviewed? No Patient has an Onbody or Implanted device: No Signed by: Dayanna Call RN [facility] 09-11-2024 Nurse Note Radiation Therapy - Patient Education Note PATIENT NAME: Mateo Stearns PATIENT September 11, 2024 [facility] FACILITY/LOCATION: [facility] READINESS TO LEARN Cognitive Ability: [...] need for social work, van service, and registry rn. Was PED reviewed? No Patient has an Onbody or Implanted device: No Signed by: Dayanna Call RN documented in this encounter [facility] 09-11-2024 History of Present illness Narrative Radiation Oncology - Prostate Cancer Follow-up note PATIENT NAME: Mateo Stearns PATIENT DIAGNOSIS: Prostate adenocarcinoma, initial PSA 4.46, biopsy Attapulgus score 3 + 3 = 6 (grade group 1), clinical stage T1c, N0, M0, stage I [cT1a-c/T2a, N0, M0, PSA <10, GG 1] (AJCC 8th ed.), s/p TRUS Random biopsy. HPI: Patient in for follow-up to discuss treatment options again. Laboratory: [employer] genomic risk score: 0.43 (low risk) PSA. [...] by: Severo Dent MD cc: Kathie Sánchez, SEASONAL CUSTOMER SERVICE ASSOCIATE ([facility]) [address] [place] [address] Rufina Vora [address] [place] [address] documented in this encounter [facility] 09-11-2024 Note HNO ID: [id number] Author: Severo DENT MD Service: ? Author Type: Physician Type: Progress Notes Filed: 09/18/2024 12:03 Note Text: Radiation Oncology - Prostate Cancer Follow-up note PATIENT NAME: Mateo Stearns PATIENT DIAGNOSIS: Prostate adenocarcinoma, initial PSA 4.46, biopsy Attapulgus score 3 + 3 = 6 (grade group 1), clinical stage T1c, N0, M0, stage I [cT1a-c/T2a, N0, M0, PSA <10, GG 1] (AJCC 8th ed.), s/p TRUS Random biopsy. HPI: Patient in for follow-up to discuss treatment options again. Laboratory: [employer] genomic risk score: 0.43 (low risk) PSA. [...] ASSESSMENT/PLAN: Prostate adenocarcinoma, initial PSA 4.46, biopsy Attapulgus score 3 + 3 = 6 (grade [...] by: Severo Dent MD cc: Kathie Sánchez, SEASONAL CUSTOMER SERVICE ASSOCIATE ([facility]) [address] [place] [address] Rufina Vora [address] [place] [address] [facility] 09-11-2024 Nurse Note AUA= 3 [facility] 09-11-2024 Nurse Note AUA= 3 documented in this encounter [facility] 09-11-2024 Note Education (RADTSA) MATEO STEARNS ([id number]) 1960 M Date Time Provider Department 09/11/24 DAYANNA CALL RADSLIMEA Reason for Visit: Patient Education [91] Visit Notes: >> Dayanna Call LPN Tue Sep 11, 2024 2:21 PM Status: Signed Radiation Therapy - Patient Education Note PATIENT NAME: Mateo Stearns PATIENT September 11, 2024 [facility] FACILITY/LOCATION: [facility] READINESS TO LEARN Cognitive Ability: [...] need for social work, van service, and registry rn. Was PED reviewed? No Patient has an [...] Encounter Status:Closed by DAYANNA CALL on 09/11/24 [facility] 07-12-2024 History of Present illness Narrative Radiation Oncology - Prostate Cancer Follow-up note PATIENT NAME: Mateo Stearns PATIENT DIAGNOSIS: 63 year old male with prostate adenocarcinoma, initial PSA 4.46, biopsy Attapulgus score 3 + 3 = 6 (grade [...] by: Severo Dent MD cc: Kathie Sánchez, SEASONAL CUSTOMER SERVICE ASSOCIATE ([facility]) [address] [place] [address] Rufina Vora [address] [place] [address] documented in this encounter [facility] 07-12-2024 Note HNO ID: [id number] Author: Severo DENT MD Service: ? Author [...] by: Severo Dent MD cc: Kathie Sánchez, SEASONAL CUSTOMER SERVICE ASSOCIATE ([facility]) [address] [place] [address] Rufina Vora [address] [place] [address] [facility] 06-21-2024 Note HNO ID: [id number] Author: Severo DENT MD Service: ? Author Type: Physician Type: Progress Notes Filed: 06/21/2024 13:50 Note Text: Radiation Oncology - Prostate Cancer New Patient/Consult Note PATIENT NAME: Mateo Stearns PATIENT REQUESTING PROVIDER: Dr. Vora DIAGNOSIS: 63 year old male with prostate adenocarcinoma, initial PSA 4.46, biopsy Attapulgus score 3 + 3 = 6 (grade [...] on 05/01/2024 with the finding of adenocarcinoma, Attapulgus 6 (3+3) from left lateral base, left [...] Chest: No respir (more content not included)... [facility] 06-21-2024 History of Present illness Narrative Radiation Oncology - Prostate Cancer New Patient/Consult Note PATIENT NAME: Mateo Stearns PATIENT REQUESTING PROVIDER: Dr. Vora DIAGNOSIS: 63 year old male with prostate adenocarcinoma, initial PSA 4.46, biopsy Attapulgus score 3 + 3 = 6 (grade [...] by: Severo Dent MD cc: Kathie Sánchez, SEASONAL CUSTOMER SERVICE ASSOCIATE ([facility]) [address] [place] [address] Rufina Vora [address] [place] [address] documented in this encounter [facility] 06-21-2024 Nurse Note Pacemaker/Defibrillator?N Previous Cancer(s)?N Previous Radiation?N Lupus/Scleroderma?N On body monitoring device?N AUA= 5 [facility] 06-21-2024 Nurse Note Pacemaker/Defibrillator?N Previous Cancer(s)?N Previous Radiation?N Lupus/Scleroderma?N On body monitoring device?N AUA= 5 documented in this encounter [facility] 06-01-2024 Note HNO ID: [id number] Author: AMANDEEP CRISOSTOMO MD Service: ? Author Type: Physician Type: Progress Notes Filed: 06/24/2024 16:18 Note Text: Referring Provider: Chief Complaint: Recently diagnosed CaP HPI: 63 year old male from [place], [place] with a PMHx of COPD (40 [...] review Assessment 63 year old male from [place], [place] with a PMHx of COPD (40 pack-year smoker and poor oxygenation status), Afib (on ASA), and GERD diagnosed with CAP in 05/20 which showed 2 cores of Attapulgus 6 disease. Recently had more + cores on a repeat biopsy and is here to discuss treatment options. He currently has low risk disease. We discussed the treatment options which include continued active surveillance, RARP, and XRT including EBRT or brachytherapy. Given patient's COPD status he may not be best candidate for surgery an (more content not included)... [facility] 06-01-2024 History of Present illness Narrative Referring Provider: Chief Complaint: Recently diagnosed CaP HPI: 63 year old male from [place], [place] with a PMHx of COPD (40 [...] review Assessment 63 year old male from [place], [place] with a PMHx of COPD (40 pack-year smoker and poor oxygenation status), Afib (on ASA), and GERD diagnosed with CAP in 05/20 which showed 2 cores of Attapulgus 6 disease. Recently had more + cores [...] Amandeep Crisostomo MD documented in this encounter [facility] 06-01-2024 Note Patient Outreach (UR OLMN) MATEO STEARNS ([id number]) 1960 M Date Time Provider Department 06/01/24 AMANDEEP CRISOSTOMO During your visit today, we recorded the following information about you: Allergies As of Date: 06/01/2024 (No Known Allergies) Date Reviewed: 06/01/2024 Reviewed by: Garrett Davis MA - Fully Assessed Visit Diagnosis:Screening for genitourinary condition [Z13.89] Order(s):URINALYSIS, REFLEX MICROSCOPIC [CAY1827] Order #: [id number]. #:[id number] Prescriptions as of 06/04/2024 - aspirin, enteric [...] Marijuana smoker [F12.90] 05/16/2013 Encounter Status:Closed by [email or web address] on 06/04/24 [facility] 05-21-2024 Hospital Discharge instructions Patient Education [...] under a microscope. This is called the Attapulgus score and the total score can range [...] stress of having cancer. General instructions Take czzf-gdz-spepwfz and prescription medicines only as told by your health care provider. If you have to go to the hospital, notify your cancer specialist (oncologist). Keep all follow-up visits. This is important. Where to find more information [employer] [employer] Society: www.cancer.org Hait[place] Society of Clinical Oncology: www.cancer.net National Cancer Ke[place]: www.cancer.gov Contact a health care provider if: [...] provider. Document Revised: 02/10/2022 Document Reviewed: 02/10/2022 Local [employer] Patient Education 2022 [employer]. Follow Up Care 01/02/2024 13:58:04 With:DIONY CHANDLER, Rufina Reina, URL Address: [facility] [address], [place] [address] [phone] When: Unknown [facility] 05-01-2024 Hospital Discharge instructions Patient Education [...] for your post-operative appointment in 1-2 weeks [phone] or [phone] Follow Up Care 03/15/2024 14:41:59 With:Rufina DIONY Address: [address] [place], [place] [id number] Business (1) When: Unknown Comments:Keep scheduled appointment [facility] 05-01-2024 Note [id number] [facility] 06-06-2023 Hospital Discharge instructions Patient Education [...] similar to normal prostate cells (moderately differentiated). Attapulgus 8, 9, or 10: This indicates that [...] stress of having cancer. General instructions Take uyav-iqz-pfkwsjf and prescription medicines only as told by your health care provider. If you have to go to the hospital, notify your cancer specialist (oncologist). Keep all follow-up visits. This is important. Where to find more information [employer] Cancer Society: www.cancer.org [place] Society of Clinical Oncology: www.cancer.net National Cancer [place]: www.cancer.gov Contact a health care provider if: [...] provider. Document Revised: 02/10/2022 Document Reviewed: 02/10/2022 [employer] Patient Education 2022 [employer]. Follow Up Care 04/27/2023 15:15:09 With:DIONY CHANDLER, Rufina Reina, URL Address: [facility] [address] [place] [address] [phone] When:Within 6 Month(s) Comments:PSA and ANNE-MARIE [facility] 05-17-2023 Hospital Discharge instructions Patient Education [...] for your post-operative appointment in 1-2 weeks [phone] or [phone] Follow Up Care 04/27/2023 15:25:07 With:Rufina VORA Address: [facility] [address] [place] [address]- Business (1) When: Unknown Comments:Keep scheduled appointment [facility] 02-07-2023 Hospital Discharge instructions Patient Education [...] if anything looks unusual. Men with a cfyacj-oyfc-ryifqu risk for skin cancer may want to see a skin installer (tire worker) for an annual body check. Where to find more information National Cancer Ke[place]: https://www.cancer.gov/about-canc er/screening Centers for Disease Control and Prevention: https://www.cdc.gov/cancer/dcpc/p revention/screening.htm [employer] Cancer Society: https://www.cancer.org/latest-new s/8-poaogc-phgjvgyis-wehon-lga-er n.html Contact a health care provider if: [...] 08/11/2017 Document Revised: 08/03/2019 Document Reviewed: 08/11/2017 [employer] Patient Education 2020 [employer] Follow Up Care 12/10/2022 10:33:39 With:DIONY CHANDLER, Rufina Reina, URL Address: [facility] [address] [place] [address]- When: Unknown [facility] 05-17-2022 Hospital Discharge instructions Patient Education 05/17/2022 13:40:29 Epidermal Cyst, Mjlo-fz-Bwqa Epidermal Cyst An epidermal cyst is a [...] yourself. Follow these instructions at home: Take excs-dhn-vpmrbgh and prescription medicines only as told by [...] the cyst, or to remove it. Take cpls-sje-peuqrxc and prescription medicines only as told by [...] 12/22/2005 Document Revised: 03/06/2020 Document Reviewed: 08/23/2019 [employer] Patient Education 2019 [employer]. 04/19/2022 08:23:29 Testicular Self-Exam Testicular Self-Exam A [...] 02/20/2002 Document Revised: 03/06/2020 Document Reviewed: 10/10/2017 [employer] Patient Education 2020 [employer]. Follow Up Care 03/17/2022 10:53:14 With:Rufina VORA MD, URL Address: [facility] [address], [place] [address]- When: Unknown [facility] Evaluation + Plan note Future Appointments Appointment Date:06/08/2022 08:45:00 AM Scheduled Provider: Location:[facility] Appointment Type:Urology CALL PAT FT Appointment Date:06/15/2022 09:00:00 AM Scheduled Provider: Location:[facility] Appointment Type:Urology FT [facility] Evaluation + Plan note Future Appointments Appointment Date:08/23/2022 12:30:00 PM Scheduled Provider:Rufina VORA MD [facility] Appoint[facility] Type:URO Office Visit [facility] Evaluation + Plan note Future Appointments Appointment Date:06/06/2023 09:45:00 AM Scheduled Provider:Rufina VORA MD [facility] Appointment Type:URO Office Visit Diagnostic Tests PendingProstate Histology ([facility]) 05/17/23 [facility] Evaluation + Plan note Future Appointments Appointment Date:12/09/2023 10:45:00 AM Scheduled Provider:Rufina VORA MD [facility] Appoint[facility] Type:URO Office Visit Diagnostic Tests PendingPSA Total 06/06/23 [facility] Evaluation + Plan note Future Appointments Appointment Date:05/21/2024 11:30:00 AM Scheduled Provider:Rufina VORA MD [facility] Appointment Type:URO Office Visit Diagnostic Tests PendingProstate Histology ([facility]) 05/01/24 [facility] Evaluation + Plan note [facility] Evaluation + Plan note Future Appointments Appointment Date:01/18/2025 10:30:00 AM Scheduled Provider:Rufina VORA MD Location:[facility] Appointment Type:URO Office Visit [facility] Evaluation note No Assessments Infor mation Available [facility] Evaluation note Diagnosis Screening for genitourinary condition Screening for other and unspecified genitourinary condition [facility] Malignant neoplasm of prostate (HCC)- Primary Malignant neoplasm of prostate [facility] Diagnosis Prostate cancer (HCC)- Primary Malignant neoplasm of prostate [facility] Diagnosis Malignant neoplasm of prostate (HCC)- Primary Malignant neoplasm of prostate [facility] Diagnosis Encounter for subsequent annual wellness [...] Other chronic pain [facility] Malignant neoplasm of prostate (HCC)- Primary Malignant neoplasm of prostate [facility] Diagnosis Malignant neoplasm of prostate (HCC)- Primary Malignant neoplasm of prostate [facility] Diagnosis Malignant neoplasm of prostate (HCC)- Primary Malignant neoplasm of prostate [facility] Diagnosis Malignant neoplasm of prostate (HCC)- Primary Malignant neoplasm of prostate [facility] Diagnosis Malignant neoplasm of prostate (HCC)- Primary Malignant neoplasm of prostate documented in this encounter [facility] note* Diagnosis Malignant neoplasm of prostate (HCC) Malignant neoplasm of prostate documented in this encounter [facility] note* Diagnosis Malignant neoplasm of prostate (HCC)- Primary Malignant neoplasm of prostate documented in this encounter [facility] note* Diagnosis Malignant neoplasm of prostate (HCC) Malignant neoplasm of prostate documented in this encounter [facility] note* Diagnosis Malignant neoplasm of prostate (HCC)- Primary Malignant neoplasm of prostate documented in this encounter [facility] note* Diagnosis Encounter for subsequent annual [...] neoplasm of prostate documented in this encounter [facility] note* Diagnosis Malignant neoplasm of prostate (HCC)- Primary Malignant neoplasm of prostate documented in this encounter [facility] note* Diagnosis Malignant neoplasm of prostate (HCC)- Primary Malignant neoplasm of prostate documented in this encounter [facility] note* Diagnosis Malignant neoplasm of prostate (HCC)- Primary Malignant neoplasm of prostate documented in this encounter [facility] note* Diagnosis Encounter for subsequent annual [...] Primary Nausea alone documented in this encounter [facility] Narrative No data available for this section [facility] Hospital Discharge instructions No data available for this section [facility] No data available for this section [facility] reason for referral (narrative) Referred by: DIONY CHANDLER, Rufina Reina [facility] Summary Purpose Family History No Family [...] 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 Severo Dent MD [address] [place] [address] [place] [address] Referral ID Status Reason Start Date Expiration Date Visits Requested Visits Authorized [id number] New Request PCP Requested Referral 4 12/16/2024 1 1 Additional Source Comments (unrecognized sect ion and content) No Status Records FoundNo Status Records FoundNo Status Records FoundNo Status Records FoundNo Status Records FoundNo Status Records Found INFORMATION SOURCE (unrecogn ized section and content) DATE CREATED AUTHOR 04/01/2021 [facility] DATE CREATED AUTHOR AUTHOR'S ORGANIZ ATION 04/13/2023 [facility] DATE CREATED AUTHOR AUTHOR'S ORGANIZ ATION 05/22/2024 [facility] DATE CREATED AUTHOR AUTHOR'S ORGANIZ ATION 12/15/2024 [facility] DATE CREATED AUTHOR AUTHOR'S ORGANIZ ATION 01/04/2025 [facility] DATE CREATED AUTHOR AUTHOR'S ORGANIZ ATION 01/21/2025 [facility] Care Team (unrecognized sect ion and content) Cigar Packing Examiner Relationship Specialty Start Date End Date Curt De Dios MD [address] [place] [address] PCP - General Family Medicine 11/11/23 Kathie Sánchez NP [address] [place] [address] Nurse Practitioner Family Medicine 10/03/23 Cigar Packing Examiner Relationship Specialty Start Date End Date Peter Bhat DO PCP - General Family Medicine 05/11/13 Cigar Packing Examiner Relationship Specialty Start Date End Date Kathie Sánchez SEASONAL CUSTOMER SERVICE ASSOCIATE [address] [place] [address] PCP - General Family Medicine 06/21/24 Cigar Packing Examiner Relationship Specialty Start Date End Date Peter BhatDO PCP - General Family Medicine 05/11/13 06/20/24 Cigar Packing Examiner Relationship Specialty Start Date End Date Kathie Sánchez, SEASONAL CUSTOMER SERVICE ASSOCIATE [address] [place] [address] PCP - General Family Medicine 06/21/24 Cigar Packing Examiner Relationship Specialty Start Date End Date Kathie Sánchez NP [address] [place] [address] PCP - Crow LAFLEUR 12/29/23 Curt De Dios MD [address] [place] [id number] PCP - General Family Medicine 02/28/24 Kathie Sánchez NP [address] [place] [address] Nurse Practitioner Family Medicine 10/03/23 Kathie Sánchez NP [address] [place] [address] Nurse Practitioner Family Medicine 02/28/24 Cigar Packing Examiner Relationship Specialty Start Date End Date Kathie Sánchez SEASONAL CUSTOMER SERVICE ASSOCIATE [address] [place] [address] PCP - General Family Medicine 06/21/24 Cigar Packing Examiner Relationship Specialty Start Date End Date Kathie Sánchez NP [address] [place] [address] PCP - Crow LAFLEUR 12/29/23 Curt De Dios MD [address] [place] [address] PCP - General Family Medicine 02/28/24 Kathie Sánchez NP [address] [place] [address] Nurse Practitioner Family Medicine 10/03/23 Kathie Sánchez NP [address] [place] [address] Nurse Practitioner Family Medicine 02/28/24 Cigar Packing Examiner Relationship Specialty Start Date End Date Kathie Sánchez NP [address] [place] [address] PCP - Crow LAFLEUR 12/29/23 Curt De Dios MD [address] [place] [address] PCP - General Family Medicine 02/28/24 Kathie Sánchez NP [address] [place] [address] Nurse Practitioner Family Medicine 10/03/23 Kathie Sánchez NP [address] [place] [address] Nurse Practitioner Family Medicine 02/28/24 Cigar Packing Examiner Relationship Specialty Start Date End Date Kathie Sánchez CNP [address] [place] [address] PCP - General Family Medicine 06/21/24 Cigar Packing Examiner Relationship Specialty Start Date End Date Kathie Sánchez CNP [address] [place] [address] PCP - General Family Medicine 06/21/24 Cigar Packing Examiner Relationship Specialty Start Date End Date Kathie Sánchez CNP [address] [place] [address] PCP - General Family Medicine 06/21/24 Umu Nicolas LSW Prenatal Teacher 09/18/24 Cigar Packing Examiner Relationship Specialty Start Date End Date Kathie Sánchez CNP [address] [place] [address] PCP - General Family Medicine 06/21/24 Umu Nicolas, SNAKER Prenatal Teacher 09/18/24 Cigar Packing Examiner Relationship Specialty Start Date End Date Kathie Sánchez CNP [address] [place] [address] PCP - General Family Medicine 06/21/24 Umu Nicolas, SNAKER Prenatal Teacher 09/18/24 Cigar Packing Examiner Relationship Specialty Start Date End Date Kathie Sánchez CNP [address] [place] [address] PCP - General Family Medicine 06/21/24 Umu Nicolas, SNAKER Prenatal Teacher 09/18/24 Cigar Packing Examiner Relationship Specialty Start Date End Date Kathie Sánchez, PROMISE [address] [place] [address] PCP - General Family Medicine 06/21/24 Umu Nicolas, SNAKER Prenatal Teacher 09/18/24 Cigar Packing Examiner Relationship Specialty Start Date End Date Kathie Sánchez, PROMISE [address] [place] [address] PCP - General Family Medicine 06/21/24 Umu Nicolas, SNAKER Prenatal Teacher 09/18/24 Cigar Packing Examiner Relationship Specialty Start Date End Date Kathie Sánchez, SEASONAL CUSTOMER SERVICE ASSOCIATE [address] [place] [address] PCP - General Family Medicine 06/21/24 Umu Nicolas, SNAKER Prenatal Teacher 09/18/24 Cigar Packing Examiner Relationship Specialty Start Date End Date Kathie Sánchez, SEASONAL CUSTOMER SERVICE ASSOCIATE [address] [place] [address] PCP - General Family Medicine 06/21/24 Umu Nicolas, SNAKER Prenatal Teacher 09/18/24 Cigar Packing Examiner Relationship Specialty Start Date End Date Kathie Sánchez, DONALD [address] [place] [address] PCP - Crow LAFLEUR 12/29/23 Curt De Dios MD [address] [place] [address] PCP - General Family Medicine 02/28/24 Kathie Sánchez NP [address] [place] [address] Nurse Practitioner Family Medicine 10/03/23 Kathie Sánchez NP [address] [place] [address] Nurse Practitioner Family Medicine 02/28/24 Cigar Packing Examiner Relationship Specialty Start Date End Date Kathie Sánchez CNP [address] [place] [address] PCP - General Family Medicine 06/21/24 Umu Nicolas LSW Prenatal Teacher 09/18/24 Cigar Packing Examiner Relationship Specialty Start Date End Date Kathie Sánchez CNP [address] [place] [address] PCP - General Family Medicine 06/21/24 Umu Nicolas LSW Prenatal Teacher 09/18/24 Cigar Packing Examiner Relationship Specialty Start Date End Date Kathie Sánchez SEASONAL CUSTOMER SERVICE ASSOCIATE [address] [place] [address] PCP - General Family Medicine 06/21/24 Umu Nicolas LSW Prenatal Teacher 09/18/24 Cigar Packing Examiner Relationship Specialty Start Date End Date Kathie Sánchez NP [address] [place] [address] PCP - Crow LAFLEUR 12/29/23 Curt De Dios MD [address] [place] [address] PCP - General Family Medicine 02/28/24 Kathie Sánchez NP [address] [place] [address] Nurse Practitioner Family Medicine 10/03/23 Kathie Sánchez NP [address] [place] [address] Nurse Practitioner Family Medicine 02/28/24 Cigar Packing Examiner Relationship Specialty Start Date End Date Kathie Sánchez NP [address] [place] [address] PCP - [facility] 12/29/23 Curt De Dios MD [address] [place] [id number] PCP - General Family Medicine 02/28/24 Kathie Sánchez NP [address] [place] [phone] Nurse Practitioner Family Medicine 10/03/23 Kathie Sánchez NP [address] [place] [phone] Nurse Practitioner Family Medicine 02/28/24 Cigar Packing Examiner Relationship Specialty Start Date End Date Kathie Sánchez NP [address] [place] [phone] PCP - Crow LAFLEUR 12/29/23 Curt De Dios MD [address] [place] [address] PCP - General Family Medicine 02/28/24 Kathie Sánchez NP [address] [place] [id number] Nurse Practitioner Family Medicine 10/03/23 Kathie Sánchez NP [address] [place] [address] Nurse Practitioner Family Medicine 02/28/24 Cigar Packing Examiner Relationship Specialty Start Date End Date Kathie Sánchez CNP [address] [place] [address] PCP - General Family Medicine 06/21/24 Umu Nicolas LSW Prenatal Teacher 09/18/24 Cigar Packing Examiner Relationship Specialty Start Date End Date Kathie Sánchez CNP [address] [place] [address] PCP - General Family Medicine 06/21/24 Umu Nicolas LSW Prenatal Teacher 09/18/24 Cigar Packing Examiner Relationship Specialty Start Date End Date Kathie Sánchez CNP [address] [place] [address] PCP - General Family Medicine 06/21/24 Umu Nicolas LSW Prenatal Teacher 09/18/24 Cigar Packing Examiner Relationship Specialty Start Date End Date Kathie Sánchez CNP [address] [place] [address] PCP - General Family Medicine 06/21/24 Umu Nicolas LSW Prenatal Teacher 09/18/24 Cigar Packing Examiner Relationship Specialty Start Date End Date Kathie Sánchez SEASONAL CUSTOMER SERVICE ASSOCIATE [address] [place] [address] PCP - General Family Medicine 06/21/24 Umu Nicolas LSW Prenatal Teacher 09/18/24 Cigar Packing Examiner Relationship Specialty Start Date End Date Kathie Sánchez SEASONAL CUSTOMER SERVICE ASSOCIATE [address] [place] [address] PCP - General Family Medicine 06/21/24 Umu Nicolas LSW Prenatal Teacher 09/18/24 Cigar Packing Examiner Relationship Specialty Start Date End Date Kathie Sánchez NP [address] [place] [phone] PCP - Crow LAFLEUR 12/29/23 Curt De Dios MD [address] [place] [address] PCP - General Family Medicine 02/28/24 Kathie Sánchez NP [address] [place] [phone] Nurse Practitioner Family Medicine 10/03/23 Kathie Sánchez NP [address] [place] [address] Nurse Practitioner Family Medicine 02/28/24 Lissa Garza MA Family Medicine 12/05/24 Cigar Packing Examiner Relationship Specialty Start Date End Date Kathie Sánchez NP [address] [place] [phone] PCP - Crow LAFLEUR 12/29/23 Curt De Dios MD [address] [place] [phone] PCP - General Family Medicine 02/28/24 Kathie Sánchez NP [address] [place] [phone] Nurse Practitioner Family Medicine 10/03/23 Kathie Sánchez NP [address] [place] [phone] Nurse Practitioner Family Medicine 02/28/24 Lissa Garza MA Family Medicine 12/05/24 Andrade Pendleton OD [address] [place] [address] [place] [address] Referring Physician Optometry 01/02/25 Cigar Packing Examiner Relationship Specialty Start Date End Date Kathie Sánchez NP [address] [place] [phone] PCP - Crow LAFLEUR 12/29/23 Curt De Dios MD [address] [place] [phone] PCP - General Family Medicine 02/28/24 Kathie Sánchez NP [address] [place] [phone] Nurse Practitioner Family Medicine 10/03/23 Kathie Sánchez NP [address] [place] [phone] Nurse Practitioner Family Medicine 02/28/24 Lissa Garza MA Family Medicine 12/05/24 Andrade Pendleton, OD [address] [place] [address] Referring Physician Optometry 01/02/25 Cigar Packing Examiner Relationship Specialty Start Date End Date Kathie Sánchez NP [address] [place] [phone] PCP - [facility] 12/29/23 Curt De Dios MD [address] [place] [phone] PCP - General Family Medicine 02/28/24 Kathie Sánchez NP [address] [place] [phone] Nurse Practitioner Family Medicine 10/03/23 Kathie Sánchez NP [address] [place] [phone] Nurse Practitioner Family Medicine 02/28/24 Lissa Garza, MIQUEL Family Medicine 12/05/24 Andrade Pendleton, OD [address] [place] [address] Referring Physician Optometry 01/02/25 Source Comments (unrecognize d section and content) In the event this informatio n is protected by the Federal Confidentiality of Alcohol and Drug Abuse Patient Records regulations: The Federal rules restrict any use of the information to criminally investigate or prosecute any alcohol or drug abuse patient.[facility] the event this information is protected by the Federal Confidentiality of Alcohol and Drug Abuse Patient Records regulations: The Federal rules restrict any use of the information to criminally investigate or prosecute any alcohol or drug abuse patient.[facility] Center[facility] the event this information is protected by the Federal Confidentiality of Alcohol and Drug Abuse Patient Records regulations: The Federal rules restrict any use of the information to criminally investigate or prosecute any alcohol or drug abuse patient.[facility] the event this information is protected by the Federal Confidentiality of Alcohol and Drug Abuse Patient Records regulations: The Federal rules restrict any use of the information to criminally investigate or prosecute any alcohol or drug abuse patient.[facility] Center[facility] the event this information is protected by the Federal Confidentiality of Alcohol and Drug Abuse Patient Records regulations: The Federal rules restrict any use of the information to criminally investigate or prosecute any alcohol or drug abuse patient.[facility] Center[facility] the event this information is protected by the Federal Confidentiality of Alcohol and Drug Abuse Patient Records regulations: The Federal rules restrict any use of the information to criminally investigate or prosecute any alcohol or drug abuse patient.[facility] Center[facility] the event this information is protected by the Federal Confidentiality of Alcohol and Drug Abuse Patient Records regulations: The Federal rules restrict any use of the information to criminally investigate or prosecute any alcohol or drug abuse patient.[facility] Center[facility] the event this information is protected by the Federal Confidentiality of Alcohol and Drug Abuse Patient Records regulations: The Federal rules restrict any use of the information to criminally investigate or prosecute any alcohol or drug abuse patient.[facility] Center[facility] the event this information is protected by the Federal Confidentiality of Alcohol and Drug Abuse Patient Records regulations: The Federal rules restrict any use of the information to criminally investigate or prosecute any alcohol or drug abuse patient.[facility] Center[facility] the event this information is protected by the Federal Confidentiality of Alcohol and Drug Abuse Patient Records regulations: The Federal rules restrict any use of the information to criminally investigate or prosecute any alcohol or drug abuse patient.[facility] CenterIn the event this information is protected by the Federal Confidentiality of Alcohol and Drug Abuse Patient Records regulations: The Federal rules restrict any use of the information to criminally investigate or prosecute any alcohol or drug abuse patient.[facility] CenterIn the event this information is protected by the Federal Confidentiality of Alcohol and Drug Abuse Patient Records regulations: The Federal rules restrict any use of the information to criminally investigate or prosecute any alcohol or drug abuse patient.[facility] Center[facility] the event this information is protected by the Federal Confidentiality of Alcohol and Drug Abuse Patient Records regulations: The Federal rules restrict any use of the information to criminally investigate or prosecute any alcohol or drug abuse patient.[facility] Center[facility] the event this information is protected by the Federal Confidentiality of Alcohol and Drug Abuse Patient Records regulations: The Federal rules restrict any use of the information to criminally investigate or prosecute any alcohol or drug abuse patient.[facility] CenterIn the event this information is protected by the Federal Confidentiality of Alcohol and Drug Abuse Patient Records regulations: The Federal rules restrict any use of the information to criminally investigate or prosecute any alcohol or drug abuse patient.[facility] CenterIn the event this information is protected by the Federal Confidentiality of Alcohol and Drug Abuse Patient Records regulations: The Federal rules restrict any use of the information to criminally investigate or prosecute any alcohol or drug abuse patient.[facility] CenterIn the event this information is protected by the Federal Confidentiality of Alcohol and Drug Abuse Patient Records regulations: The Federal rules restrict any use of the information to criminally investigate or prosecute any alcohol or drug abuse patient.[facility] CenterIn the event this information is protected by the Federal Confidentiality of Alcohol and Drug Abuse Patient Records regulations: The Federal rules restrict any use of the information to criminally investigate or prosecute any alcohol or drug abuse patient.[facility] CenterIn the event this information is protected by the Federal Confidentiality of Alcohol and Drug Abuse Patient Records regulations: The Federal rules restrict any use of the information to criminally investigate or prosecute any alcohol or drug abuse patient.[facility] CenterIn the event this information is protected by the Federal Confidentiality of Alcohol and Drug Abuse Patient Records regulations: The Federal rules restrict any use of the information to criminally investigate or prosecute any alcohol or drug abuse patient.[facility] CenterIn the event this information is protected by the Federal Confidentiality of Alcohol and Drug Abuse Patient Records regulations: The Federal rules restrict any use of the information to criminally investigate or prosecute any alcohol or drug abuse patient.[facility] CenterIn the event this information is protected by the Federal Confidentiality of Alcohol and Drug Abuse Patient Records regulations: The Federal rules restrict any use of the information to criminally investigate or prosecute any alcohol or drug abuse patient.[facility] CenterIn the event this information is protected by the Federal Confidentiality of Alcohol and Drug Abuse Patient Records regulations: The Federal rules restrict any use of the information to criminally investigate or prosecute any alcohol or drug abuse patient.[facility] CenterIn the event this information is protected by the Federal Confidentiality of Alcohol and Drug Abuse Patient Records regulations: The Federal rules restrict any use of the information to criminally investigate or prosecute any alcohol or drug abuse patient.[facility] CenterIn the event this information is protected by the Federal Confidentiality of Alcohol and Drug Abuse Patient Records regulations: The Federal rules restrict any use of the information to criminally investigate or prosecute any alcohol or drug abuse patient.[facility] CenterIn the event this information is protected by the Federal Confidentiality of Alcohol and Drug Abuse Patient Records regulations: The Federal rules restrict any use of the information to criminally investigate or prosecute any alcohol or drug abuse patient.[facility] Reason for Visit (unrecogniz ed [...] BE BASED ON THE PRIMARY CLINICAL RECORDS. [facility] [facility]. provides no warranty or guarantee of the accuracy or completeness of information in this document.
[2025-02-23 18:22] LABS: Lactate/Lactic Acid 0.7 mmol/L (0.4-2.0)
--- NOTE | 2025-02-23 18:50 | P.HP_ITS ---
HPI H&P: HPI History of Present Illness Chief complaint: Functional decline malnutrition nausea Narrative: Patient presented to the emergency room with increasing weakness, when I saw patient up on the medical surgical floor, he also describes cough productive of sputum, colored in nature, increasing weakness since the cough started over the last 2 days, he has a recent discharge from extended-care facility Opioid HPI Opioid Management Most Recent Pain and Opioid Data: Last Pain Scale 8 01/16/25 11:13 01/16/25 Last Pain Intensity 8 01/16/25 11:13 01/16/25 Last Pain Assessment 02/23/25 17:56 Last ORT Total Score 11 02/23/25 16:09 02/23/25 Last ORT Risk Category High Risk 02/23/25 16:09 02/23/25 Review of Systems ROS Status of ROS 10 or more systems reviewed and unremark able except as noted in history and below [facility] Medical History (Updated 02/23/25 @ 14:52 by Daniel Hargrove) Right upper lobe pneumonia ?J18.9 - Pneumonia, unspecified organism (ICD-10) HTN (hypertension) ?I10 - Essential (primary) hypertension (ICD-10) Acute and chronic respiratory failure with hypoxia ?J96.21 - Acute and chronic respiratory failure with hypoxia (ICD-10) Paroxysmal atrial fibrillation ?I48.0 - Paroxysmal atrial fibrillation (ICD-10) Chronic hypoxic respiratory failure ?J96.11 - Chronic respiratory failure with hypoxia (ICD-10) COPD (chronic obstructive pulmonary disease) ?J44.9 - Chronic obstructive pulmonary disease, unspecified (ICD-10) Closed fracture of proximal end of femur ?S72.009A - Fracture of unspecified part of neck of unspecified femur, initial encounter for closed fracture (ICD-10) Influenza A ?J10.1 - Influenza due to other identified influenza virus with other respiratory manifestations (ICD-10) Fall from standing ?W19.XXXA - Unspecified fall, initial encounter (ICD-10) Upper respiratory infection ?J06.9 - Acute upper respiratory infection, unspecified (ICD-10) Acute infective exacerbation of chronic obstructive airway disease ?J44.1 - Chronic obstructive pulmonary disease with (acute) exacerbation (ICD-10) Community acquired pneumonia ?J18.9 - Pneumonia, unspecified organism (ICD-10) Thoracic back pain ?M54.6 - Pain in thoracic spine (ICD-10) Enteritis ?K52.9 - Noninfective gastroenteritis and colitis, unspecified (ICD-10) Surgical History (Updated 01/22/25 @ 00:00 by ) S/P bilateral hip replacements ?Z96.643 - Presence of artificial hip joint, bilateral (ICD-10) Family History (Updated 02/23/25 @ 16:12 by Shannen Guzman) Mother Family history of CHF (congestive heart failure) Father Family history of COPD (chronic obstructive pulmonary disease) Uncle Family history of cancer Son Family history of diabetes mellitus Social History (Updated 02/23/25 @ 16:14 by Shannen Guzman) Within the past year, how often did you have a drink containing alcohol: never Within the past year, how often did you have six or more drinks on one occasion: never Score interpretation: A score less than 4 is consistent with normal alcohol consumption. Smoking status: Former smoker Non-prescribed substance use: denies use Previous occupational history: retired/ disabled Highest level of school completed/degree received: 9th grade Are you now , , , , never or living with a partner: Little interest or pleasure in doing things: not at all Feeling down, depressed, or hopeless: not at all Meds Home Medications and Allergies Home Medications ?Medication ?Instructions ?Recorded ?Confirmed ?Type albuterol sulfate 90 mcg/actuation 2 inh inhalation Q4H PRN shortness 01/05/24 02/23/25 History aerosol inhaler of breath or wheezing aspirin 81 mg tablet,delayed 81 mg PO DAILY 01/05/24 02/23/25 History release budesonide-formoterol HFA 160 2 puff inhalation BID 01/05/24 02/23/25 History mcg-4.5 mcg/actuation aerosol inhaler diltiazem HCl 180 mg 180 mg PO DAILY 01/05/24 02/23/25 History capsule,extended release 24 hr, controlled pantoprazole 40 mg tablet,delayed 40 mg PO DAILY 01/05/24 02/23/25 History release roflumilast 500 mcg tablet 500 mcg PO DAILY 01/05/24 02/23/25 History ibuprofen 800 mg tablet 800 mg PO Q8H PRN pain 01/13/25 02/23/25 History cyclosporine 0.05 % eye drops in a 1 drp ophthalmic (eye) BID 01/14/25 02/23/25 History dropperette albuterol sulfate 2.5 mg/3 mL 2.5 mg (3 mL) inhalation Q6H PRN 01/18/25 02/23/25 Rx (0.083 %) solution for nebulization shortness of breath or wheezing #90 mL metoclopramide HCl 10 mg tablet 10 mg PO Q8H PRN nausea and 02/23/25 02/23/25 History vomiting Allergies Allergy/AdvReac Type Severity Reaction Status Date / Time No Known Drug Allergies Allergy Verified 02/23/25 11:12 Exam Constitutional Vital Signs, click to edit/add: Last Vital Signs Temp 98.2 F 02/23/25 16:09 Pulse 86 02/23/25 16:09 Resp 20 02/23/25 16:09 BP 141/86 02/23/25 16:09 Pulse Ox 93 L 02/23/25 16:09 O2 Del Method Nasal Cannula 02/23/25 16:09 O2 Flow Rate 3 02/23/25 16:09 Documenting provider has reviewed patient's vital signs: yes Common normals: no apparent distress Chest Common normals: inspection of chest normal and palpation of chest normal Respiratory Common normals: normal respiratory effort and no retractions; not clear to ascultation bilaterally Auscultation: rhonchi Cardio Common normals: regular rate and regular rhythm GI Common normals: Normal to inspection, nondistended, normoactive bowel sounds present Extremity Common normals: normal to inspection and no clubbing, cyanosis or edema Results Labs Labs: Short CBC 02/23/25 Range/Units 11:58 WBC 13.2 H (4.0-11.0) 10^3/uL Hgb 12.2 L (14.0-18.0) g/dL Hct 37.5 L (42.0-54.0) % Plt Count 363 (150-450) 10^3/uL BMP 02/23/25 11:58 Sodium 142 Potassium 3.3 L Chloride 104 Carbon Dioxide 30.9 BUN 18.0 Creatinine 0.73 Glucose 108 H Calcium 9.1 Liver Function 02/23/25 Range/Units 11:58 Total Bilirubin 0.7 (0.2-1.0) mg/dL AST 21 (15-37) U/L ALT 23 (16-63) U/L Alkaline Phosphatase 82 (46-116) U/L Albumin 3.2 L (3.4-5.0) g/dL Urine 02/23/ Range/Units 12:04 Urine Color Yellow (YELLOW) Urine Clarity Clear (CLEAR) Urine pH 6.5 (5.0-9.0) Ur Specific [place] 1.020 (1.005-1.025) Urine Protein Negative (NEG/TRACE) mg/dL Urine Glucose (UA) Negative (NEGATIVE) mg/dL Assessment and Plan Assessment and Plan (1) Nausea: (2) Malnutrition: (3) HTN (hypertension): Qualifiers: Hypertension type: primary hypertension Qualified Code(s): I10 - Essential (primary) hypertension (4) COPD (chronic obstructive pulmonary disease): Qualifiers: COPD type: COPD with acute exacerbation Qualified Code(s): J44.1 - Chr onic obstructive pulmonary disease with (acute) exacerbation (5) Closed fracture of proximal end of femur: Plan Admission findings: Tachycardia, respiratory distress, uncontrolled hypertension, leukocytosis secondary to acute exacerbation of COPD, with possible nosocomil infection Acute exacerbation of COPD due to acute bronchitis-start patient on aerosol treatments and antibiotics and steroids, try to obtain sputum culture Hypokalemia-supplement Hypomagnesemia-supplement Iron deficiency anemia-monitor daily Closed fracture of proximal end of femur-consult orthopedics in 2 days continue nonweightbearing GERD-continue with home medications Hypertension-continue with home medications Admission status: Patient with recent discharge from a extended care facility with acute exacerbation of COPD secondary to acute bronchitis, medically necessary treatment will span 2 midnights. Inpatient status
[2025-02-23] MEDS: MAGNESIUM OXIDE 400 MG TABLET PO (22:15)
[2025-02-23] MEDS: ENSURE HP 237 ML LIQUID PO (22:15)
[2025-02-23] MEDS: POTASSIUM CHLORIDE 10 MEQ ER TABLET PO (22:15)
[2025-02-23] MEDS: LEVOFLOXACIN IN DEXTROSE 5 % 750 MG/150 ML PREMIX 100 MG IV (22:16)
[2025-02-23] MEDS: METHYLPREDNISOLONE SOD SUCC PF 125 MG/2 ML VIAL 60 MG IVP (22:16)
[2025-02-23] MEDS: IPRATROPIUM/ALBUTEROL SULFATE 3 ML AMPUL.NEB IH (22:23)
[2025-02-23 23:42] LABS: Influenza Virus A Antigen Negative; Influenza Virus B Antigen Negative; Internal Control Within Normal Limits; SARS-CoV-2 Ag NEGATIVE (NEGATIVE)
[2025-02-24] VITALS (11 sets, daily range): BP systolic 131–147; BP diastolic 68–92; PULSE 95–112; TEMP 36.6–36.9; O2SAT 90–95
[2025-02-24] MEDS: METHYLPREDNISOLONE SOD SUCC PF 125 MG/2 ML VIAL 60 MG IVP (03:18)
[2025-02-24] MEDS: IPRATROPIUM/ALBUTEROL SULFATE 3 ML AMPUL.NEB IH ×4 (04:43→22:07)
[2025-02-24 06:27] LABS: Basophils Percent Auto 0.1 % (0.2-2.0); Eosinophils Percent Auto 0.1 % (0.9-7.0); Hematocrit 37.7 % (42.0-54.0); Hemoglobin 12.2 g/dL (14.0-18.0); Immature Granulocytes Abs Auto 0.05 10^3/uL (0.00-0.03); Immature Granulocytes Pct Auto 0.6 % (0.0-0.5); Lymphocytes Absolute Auto 0.7 10^3/uL (1.2-3.8); Lymphocytes Percent Auto 8.6 % (20.5-60.0); Mean Corpuscular HGB Conc 32.4 g/dL (29.9-35.2); Mean Corpuscular Volume 89.5 fL (80.0-94.0); Mean Platelet Volume 9.2 fL (9.5-13.5); Monocytes Percent Auto 0.3 % (1.7-12.0); Neutrophils Absolute Auto 7.8 10^3/uL (1.4-6.5); Neutrophils Percent Auto 90.3 % (43.0-75.0); Platelet Count 339 10^3/uL (150-450); Red Blood Count 4.21 10^6/uL (4.70-6.10); Red Cell Distribution Width 14.8 % (11.0-15.0); White Blood Count 8.6 10^3/uL (4.0-11.0)
[2025-02-24 06:42] LABS: Anion Gap 16.1; BUN Creatinine Ratio 13.4; Carbon Dioxide 27.4 mmol/L (21.0-32.0); Chloride 102 mmol/L (98-107); Estimated GFR (African America >60 (>=60 mL/min/1.73m^2); Estimated GFR (Non-African Ame >60 (>=60 mL/min/1.73m^2); Glucose 140 mg/dL (74-106); Magnesium 1.7 mg/dL (1.8-2.4); Potassium 3.5 mmol/L (3.5-5.1); Sodium 142 mmol/L (136-145)
[2025-02-24] MEDS: ALBUTEROL SULFATE 2.5 MG/3 ML VIAL NEB IH (09:06)
--- NOTE | 2025-02-24 09:38 | P.PN_ITS ---
Progress Note: Subjective Subjective Interval history: Feels about the same as previous day, still has consistent cough, feels a little shaky today which may be steroid-induced Exam Constitutional Vital Signs, click to edit/add: Last Vital Signs Temp 98 F 02/24/25 07:20 Pulse 96 H 02/24/25 07:20 Resp 20 02/24/25 07:20 BP 147/84 H 02/24/25 07:20 Pulse Ox 93 L 02/24/25 07:20 O2 Del Method Nasal Cannula 02/24/25 07:20 O2 Flow Rate 3 02/24/25 07:20 Documenting provider has reviewed patient's vital signs: yes Common normals: apparent distress (Seems anxious today) Chest Common normals: inspection of chest normal and palpation of chest normal Respiratory Common normals: normal respiratory effort and no retractions; not clear to ascultation bilaterally Auscultation: rhonchi (Unchanged); no wheezes Cardio Common normals: regular rate and regular rhythm GI Common normals: Normal to inspection, nondistended, normoactive bowel sounds present Extremity Common normals: normal to inspection and no clubbing, cyanosis or edema Progress Note: Objective Labs Labs: Short CBC 02/23/25 02/24/25 Range/Units 11:58 05:42 WBC 13.2 H 8.6 (4.0-11.0) 10^3/uL Hgb 12.2 L 12.2 L (14.0-18.0) g/dL Hct 37.5 L 37.7 L (42.0-54.0) % Plt Count 363 339 (150-450) 10^3/uL BMP 02/23/25 02/24/25 11:58 05:42 Sodium 142 142 Potassium 3.3 L 3.5 Chloride 104 102 Carbon Dioxide 30.9 27.4 BUN 18.0 11.0 Creatinine 0.73 0.82 Glucose 108 H 140 H Calcium 9.1 9.0 Liver Function 02/23/25 Range/Units 11:58 Total Bilirubin 0.7 (0.2-1.0) mg/dL AST 21 (15-37) U/L ALT 23 (16-63) U/L Alkaline Phosphatase 82 (46-116) U/L Albumin 3.2 L (3.4-5.0) g/dL Urine 02/23/25 Range/Units 12:04 Urine Color Yellow (YELLOW) Urine Clarity Clear (CLEAR) Urine pH 6.5 (5.0-9.0) Ur Specific [place] 1.020 (1.005-1.025) Urine Protein Negative (NEG/TRACE) mg/dL Urine Glucose (UA) Negative (NEGATIVE) mg/dL Progress Note: A&P Assessment and Plan (1) Nausea: (2) Malnutrition: (3) HTN (hypertension): Qualifiers: Hypertension type: primary hypertension Qualified Code(s): I10 - Essential (primary) hypertension (4) COPD (chronic obstructive pulmonary disease): Qualifiers: COPD type: COPD with acute exacerbation Qualified Code(s): J44.1 - Chronic obstructive pulmonary disease with (acute) exacerbation (5) Closed fracture of proximal end of femur: Plan Admission findings: Tachycardia, respiratory distress, uncontrolled hypertension, leukocytosis secondary to acute exacerbation of COPD, with possible nosocomil infection Acute exacerbation of COPD due to acute bronchitis-right blood cell count is improved, maintain current treatment plan Hypokalemia-improved to normal Hypomagnesemia-continue supplementation Iron deficiency anemia-monitor daily Closed fracture of proximal end of femur-consult orthopedics in 2 days continue nonweightbearing GERD-continue with home medications Hypertension-continue with home medications Admission status: Patient with recent discharge from a extended care facility with acute exacerbation of COPD secondary to acute bronchitis, medically necessary treatment will span 2 midnights. Inpatient status ?
[2025-02-24] MEDS: DILTIAZEM HCL 180 MG CAP.ER.24H PO (10:01)
[2025-02-24] MEDS: ASPIRIN 81 MG TABLET.DR PO (10:01)
[2025-02-24] MEDS: PANTOPRAZOLE SODIUM 40 MG TABLET.DR PO (10:01)
[2025-02-24] MEDS: ROFLUMILAST 500 MCG TABLET PO (10:02)
[2025-02-24] MEDS: MAGNESIUM OXIDE 400 MG TABLET PO ×2 (10:02→20:26)
[2025-02-24] MEDS: POTASSIUM CHLORIDE 10 MEQ ER TABLET PO ×2 (10:02→20:26)
[2025-02-24] MEDS: CYCLOSPORINE 0.05% OP (10:04)
[2025-02-24] MEDS: METHYLPREDNISOLONE SOD SUCC PF 125 MG/2 ML VIAL 40 MG IVP ×2 (10:09→17:06)
[2025-02-24] MEDS: CETIRIZINE HCL 10 MG TABLET PO (10:12)
[2025-02-24] MEDS: OLANZapine 5 MG TABLET PO (10:18)
[2025-02-24] MEDS: BUDESONIDE 0.5 MG/2 ML AMPULE NEB IH ×2 (11:02→22:07)
[2025-02-24] MEDS: DOXEPIN HCL 10 MG CAPSULE PO (20:27)
[2025-02-25] VITALS (9 sets, daily range): BP systolic 139–152; BP diastolic 71–85; PULSE 95–110; TEMP 36.6; O2SAT 90–95
[2025-02-25] MEDS: METHYLPREDNISOLONE SOD SUCC PF 125 MG/2 ML VIAL 40 MG IVP (04:16)
[2025-02-25] MEDS: IPRATROPIUM/ALBUTEROL SULFATE 3 ML AMPUL.NEB IH ×4 (04:43→22:18)
[2025-02-25 06:33] LABS: Hematocrit 36.6 % (42.0-54.0); Immature Granulocytes Abs Auto 0.04 10^3/uL (0.00-0.03); Immature Granulocytes Pct Auto 0.6 % (0.0-0.5); Lymphocytes Absolute Auto 0.4 10^3/uL (1.2-3.8); Lymphocytes Percent Auto 6.7 % (20.5-60.0); Mean Corpuscular HGB Conc 32.8 g/dL (29.9-35.2); Mean Corpuscular Hemoglobin 29.3 pg (25.9-34.0); Mean Corpuscular Volume 89.3 fL (80.0-94.0); Mean Platelet Volume 9.1 fL (9.5-13.5); Monocytes Absolute Auto 0.3 10^3/uL (0.3-0.8); Neutrophils Absolute Auto 5.8 10^3/uL (1.4-6.5); Neutrophils Percent Auto 88.7 % (43.0-75.0); Platelet Count 330 10^3/uL (150-450); Red Cell Distribution Width 15.1 % (11.0-15.0); White Blood Count 6.5 10^3/uL (4.0-11.0)
[2025-02-25 06:47] LABS: Anion Gap 11.8; BUN Creatinine Ratio 21.5; Carbon Dioxide 29.4 mmol/L (21.0-32.0); Chloride 107 mmol/L (98-107); Estimated GFR (African America >60 (>=60 mL/min/1.73m^2); Estimated GFR (Non-African Ame >60 (>=60 mL/min/1.73m^2); Glucose 173 mg/dL (74-106); Potassium 4.2 mmol/L (3.5-5.1); Sodium 144 mmol/L (136-145)
--- NOTE | 2025-02-25 07:53 | P.PN_ITS ---
Progress Note: Subjective Subjective Interval history: Overall feels better than the previous day, less anxiety compared to previous day related to the steroids Exam Constitutional Vital Signs, click to edit/add: Last Vital Signs Temp 97.8 F 02/25/25 04:00 Pulse 95 H 02/25/25 04:43 Resp 16 02/25/25 04:43 BP 145/73 H 02/25/25 04:00 Pulse Ox 95 02/25/25 04:43 O2 Del Method Nasal Cannula 02/25/25 04:43 O2 Flow Rate 3 02/25/25 04:43 Documenting provider has reviewed patient's vital signs: yes Common normals: apparent distress (Seems anxious today) Chest Common normals: inspection of chest normal and palpation of chest normal Respiratory Common normals: normal respiratory effort and no retractions; not clear to ascultation bilaterally Auscultation: rhonchi (Improved with better air exchange); no wheezes Cardio Common normals: regular rate, regular rhythm and no murmurs GI Common normals: Normal to inspection, nondistended, normoactive bowel sounds present, soft to palpation, non-tender and no masses Extremity Common normals: normal to inspection and no clubbing, cyanosis or edema Progress Note: Objective Labs Labs: Short CBC 02/25/25 Range/Units 06:11 WBC 6.5 (4.0-11.0) 10^3/uL Hgb 12.0 L (14.0-18.0) g/dL Hct 36.6 L (42.0-54.0) % Plt Count 330 (150-450) 10^3/uL BMP 02/25/25 06:11 Sodium 144 Potassium 4.2 Chloride 107 Carbon Dioxide 29.4 BUN 20.0 H Creatinine 0.93 Glucose 173 H Calcium 9.0 Progress Note: A&P Assessment and Plan (1) Nausea: (2) Malnutrition: (3) HTN (hypertension): Qualifiers: Hypertension type: primary hypertension Qualified Code(s): I10 - Essential (primary) hypertension (4) COPD (chronic obstructive pulmonary disease): Qualifiers: COPD type: COPD with acute exacerbation Qualified Code(s): J44.1 - Chronic obstructive pulmonary disease with (acute) exacerbation (5) Closed fracture of proximal end of femur: Plan Admission findings: Tachycardia, respiratory distress, uncontrolled hypertension, leukocytosis secondary to acute exacerbation of COPD, with possible nosocomil infection Acute exacerbation of COPD due to acute bronchitis-still supplemental oxygen which she does not use at home despite the diagnosis of her chronic hypoxic respiratory failure, this would be an acute exacerbation but not had a need to use his supplemental oxygen recently. Maintain current treatment plan reevaluate later today after Ortho Hypokalemia-improved to normal Hypomagnesemia-reviewed labs continue supplement Iron deficiency anemia-monitor daily Closed fracture of proximal end of Right femur-Ortho eval today, fracture occurred 6 weeks ago GERD-continue with home medications Hypertension-continue with home medications Admission status: Patient with recent discharge from a extended care facility with acute exacerbation of COPD secondary to acute bronchitis, medically necessary treatment will span 2 midnights. Inpatient status ?
--- NOTE | 2025-02-25 08:15 | CM.NOTE ---
Rounds made with Dr. Robertson, Dr. Mart consulted on pt for femur fx. Fx took place about 6 weeks ago, pt NWB status at this time awaiting further recommendations from [facility]. No discharge today. Case Management and SW will f/u with pt for discharge planning.
--- NOTE | 2025-02-25 08:19 | CM.NOTE ---
Pt does have home oxygen through [employer]. Pt states his PCP was working on setting him up with HH services ([facility]).
--- NOTE | 2025-02-25 08:23 | CM.NOTE ---
Important Message From Medicare discussed with pt, pt verbalizes understanding and signs paper. Original given to pt and copy placed in pt's chart.
[2025-02-25] MEDS: ROFLUMILAST 500 MCG TABLET PO (08:31)
[2025-02-25] MEDS: OLANZapine 5 MG TABLET PO (08:31)
[2025-02-25] MEDS: MAGNESIUM OXIDE 400 MG TABLET PO ×2 (08:31→20:49)
[2025-02-25] MEDS: DILTIAZEM HCL 180 MG CAP.ER.24H PO (08:31)
[2025-02-25] MEDS: POTASSIUM CHLORIDE 10 MEQ ER TABLET PO ×2 (08:31→20:49)
[2025-02-25] MEDS: PANTOPRAZOLE SODIUM 40 MG TABLET.DR PO (08:31)
[2025-02-25] MEDS: CETIRIZINE HCL 10 MG TABLET PO (08:31)
[2025-02-25] MEDS: ASPIRIN 81 MG TABLET.DR PO (08:31)
[2025-02-25] MEDS: ENSURE HP 237 ML LIQUID PO (08:31)
--- NOTE | 2025-02-25 09:23 | XR_ITS ---
The [address] [address] Patient Name: MATEO STEARNS MRN: [id number] date: 1960 Sex: M Assigned Patient Location: [place] Current Patient Location: [place] Accession/Order Number: [id number] Exam Date: 02/25/2025 11:54 Report Date: 02/25/2025 11:59 At the request of: LEONOR LERNER MD Procedure: XR hip RT 2V w/ pelvis RIGHT HIP WITH AP PELVIS - 3 views COMPARISON: 02/11/2025 CLINICAL DATA: Follow-up right hip replacement and fracture AP view of the pelvis as well as AP and frog-lateral views of the right hip were obtained. Patient has bilateral hip replacements. As visualized, the hardware appears intact and unchanged from the prior. There is still subtle linear lucency through the cortex with adjacent sclerosis below the lesser trochanter on the frog lateral view AP healing suggesting potential nondisplaced fracture. No developing fracture or dislocation is identified. The hip joint spaces are maintained. There is no significant arthritic disease. The SI joints are intact. There is mild degenerative change at the lower imaged lumbar spine. No soft tissue abnormalities are present. XR/XR hip RT 2V w/ pelvis IMPRESSION: STABLE HIP REPLACEMENTS. STABLE HEALING SUBTROCHANTERIC RIGHT HIP FRACTURE. NO ACUTE BONY FINDINGS. Impression dictated by: Tawnya Ramirez M.D.02/25/2025 11:59 AM Dictation Location: [place] [address] Electronically authenticated by: [id number] Y Date: 02/25/2025 11:59
[2025-02-25] MEDS: METHYLPREDNISOLONE SOD SUCC PF 40 MG/ML VIAL IVP ×2 (09:34→17:17)
[2025-02-25] MEDS: IBUPROFEN 400 MG TABLET 800 MG PO (09:34)
[2025-02-25] MEDS: BUDESONIDE 0.5 MG/2 ML AMPULE NEB IH ×2 (10:00→22:18)
--- NOTE | 2025-02-25 12:06 | SWNOTE1 ---
SW called [facility] and pt is prescribed 2 liters continuous and this was from back in 2020.
--- NOTE | 2025-02-25 13:36 | CM.NOTE ---
Discussed with pt preventative medicine for COPD, pt does f/u with Dr. Shea as outpatient. Pt has appt scheduled at end of February.
--- NOTE | 2025-02-25 13:40 | PM.ORCN ---
History of Present Illness HPI Consult date: 02/25/25 Requesting physician: Anil Robertson Chief complaint: Functional decline malnutrition nausea Narrative: Patient is a 64-year-old with a history of COPD and right periprosthetic femur fracture who had presented to the ER 2 days ago with complaints of malnourishment, Poly functional decline, inability to care for himself, and abdominal pain after being discharged from a extended care facility. He is also had an exacerbation of his COPD. Orthopedics was consulted during his inpatient stay to reevaluate his weightbearing status. We initially saw him inpatient for this fracture on 01/14/2025 and just recently in the office on 02/11/2025 and had recommended to continue with his nonweightbearing status to his right lower extremity. Today patient denies any pain. He was having a hard time at home given his nonweightbearing status to the right leg and lack of help with activities of daily living. [facility] Medical History (Updated 02/23/25 @ 14:52 by Daniel Hargrove) Right upper lobe pneumonia ?J18.9 - Pneumonia, unspecified organism (ICD-10) HTN (hypertension) ?I10 - Essential (primary) hypertension (ICD-10) Acute and chronic respiratory failure with hypoxia ?J96.21 - Acute and chronic respiratory failure with hypoxia (ICD-10) Paroxysmal atrial fibrillation ?I48.0 - Paroxysmal atrial fibrillation (ICD-10) Chronic hypoxic respiratory failure ?J96.11 - Chronic respiratory failure with hypoxia (ICD-10) COPD (chronic obstructive pulmonary disease) ?J44.9 - Chronic obstructive pulmonary disease, unspecified (ICD-10) Closed fracture of proximal end of femur ?S72.009A - Fracture of unspecified part of neck of unspecified femur, initial encounter for closed fracture (ICD-10) Influenza A ?J10.1 - Influenza due to other identified influenza virus with other respiratory manifestations (ICD-10) Fall from standing ?W19.XXXA - Unspecified fall, initial encounter (ICD-10) Upper respiratory infection ?J06.9 - Acute upper respiratory infection, unspecified (ICD-10) Acute infective exacerbation of chronic obstructive airway disease ?J44.1 - Chronic obstructive pulmonary disease with (acute) exacerbation (ICD-10) Community acquired pneumonia ?J18.9 - Pneumonia, unspecified organism (ICD-10) Thoracic back pain ?M54.6 - Pain in thoracic spine (ICD-10) Enteritis ?K52.9 - Noninfective gastroenteritis and colitis, unspecified (ICD-10) Surgical History (Updated 01/22/25 @ 00:00 by ) S/P bilateral hip replacements ?Z96.643 - Presence of artificial hip joint, bilateral (ICD-10) Family History (Updated 02/23/25 @ 16:12 by Shannen Guzman) Mother Family history of CHF (congestive heart failure) Father Family history of COPD (chronic obstructive pulmonary disease) Uncle Family history of cancer Son Family history of diabetes mellitus Social History (Updated 02/23/25 @ 16:14 by Shannen Guzman) Within the past year, how often did you have a drink containing alcohol: never Within the past year, how often did you have six or more drinks on one occasion: never Score interpretation: A score less than 4 is consistent with normal alcohol consumption. Smoking status: Former smoker Non-prescribed substance use: denies use Previous occupational history: retired/ disabled Highest level of school completed/degree received: 9th grade Are you now , , , , never or living with a partner: Little interest or pleasure in doing things: not at all Feeling down, depressed, or hopeless: not at all Meds Home Medications and Allergies Home Medications ?Medication ?Instructions ?Recorded ?Confirmed ?Type albuterol sulfate 90 mcg/actuation 2 inh inhalation Q4H PRN shortness 01/05/24 02/23/25 History aerosol inhaler of breath or wheezing aspirin 81 mg tablet,delayed 81 mg PO DAILY 01/05/24 02/23/25 History release budesonide-formoterol HFA 160 2 puff inhalation BID 01/05/24 02/23/25 History mcg-4.5 mcg/actuation aerosol inhaler diltiazem HCl 180 mg 180 mg PO DAILY 01/05/24 02/23/25 History capsule,extended release 24 hr, controlled pantoprazole 40 mg tablet,delayed 40 mg PO DAILY 01/05/24 02/23/25 History release roflumilast 500 mcg tablet 500 mcg PO DAILY 01/05/24 02/23/25 History ibuprofen 800 mg tablet 800 mg PO Q8H PRN pain 01/13/25 02/23/25 History cyclosporine 0.05 % eye drops in a 1 drp ophthalmic (eye) BID 01/14/25 02/23/25 History dropperette albuterol sulfate 2.5 mg/3 mL 2.5 mg (3 mL) inhalation Q6H PRN 01/18/25 02/23/25 Rx (0.083 %) solution for nebulization shortness of breath or wheezing #90 mL metoclopramide HCl 10 mg tablet 10 mg PO Q8H PRN nausea and 02/23/25 02/23/25 History vomiting Allergies Allergy/AdvReac Type Severity Reaction Status Date / Time No Known Drug Allergies Allergy Verified 02/23/25 11:12 Exam Narrative Exam Narrative: On exam patient is in no distress, age-appropriate, alert and oriented x 3. On inspection skin is intact, no erythema, no warmth to touch. Right thigh and calf are nontender, soft, and compressible. No palpable cords. Full knee and hip ROM. Negative logroll. 5/5 strength DF/PF bilaterally. 2+ DP pulses palpated bilaterally. Sensation intact with light touch distally. Constitutional Vital Signs, click to edit/add: Last Vital Signs Temp 97.9 F 02/25/25 08:36 Pulse 95 H 02/25/25 10:01 Resp 18 02/25/25 08:36 BP 152/85 H 02/25/25 08:36 Pulse Ox 95 02/25/25 10:01 O2 Del Method Nasal Cannula 02/25/25 10:01 O2 Flow Rate 3 02/25/25 10:01 Results Labs Labs: Abnormal lab results 02/25/25 Range/Units 06:11 RBC 4.10 L (4.70-6.10) 10^6/uL Hgb 12.0 L (14.0-18.0) g/dL Hct 36.6 L (42.0-54.0) % RDW 15.1 H (11.0-15.0) % MPV 9.1 L (9.5-13.5) fL Neut % (Auto) 88.7 H (43.0-75.0) % Lymph % (Auto) 6.7 L (20.5-60.0) % Eos % (Auto) 0.0 L (0.9-7.0) % Baso % (Auto) 0.0 L (0.2-2.0) % Lymph # (Auto) 0.4 L (1.2-3.8) 10^3/uL Abs Immat Gran (auto) 0.04 H (0.00-0.03) 10^3/uL Imm/Tot Granulo (auto) 0.6 H (0.0-0.5) % BUN 20.0 H (7.0-18.0) mg/dL Glucose 173 H (74-106) mg/dL H & H 02/23/25 02/24/25 02/25/25 Range/Units 11:58 05:42 06:11 Hgb 12.2 L 12.2 L 12.0 L (14.0-18.0) g/dL Hct 37.5 L 37.7 L 36.6 L (42.0-54.0) % All other labs normal. Assessment and Plan Assessment and Plan (1) Nausea: (2) Malnutrition: (3) HTN (hypertension): Qualifiers: Hypertension type: primary hypertension Qualified Code(s): I10 - Essential (primary) hypertension (4) COPD (chronic obstructive pulmonary disease): Qualifiers: COPD type: COPD with acute exacerbation Qualified Code(s): J44.1 - Chronic obstructive pulmonary disease with (acute) exacerbation (5) Closed fracture of proximal end of femur: Assessment and Plan: Right periprosthetic femur fracture-6 weeks out from injury -Three-view x-rays of the right hip were reviewed from today, subtrochanteric periprosthetic femur fracture seen best on the frog-leg lateral does have some increased callus formation but fracture line is still evident. -X-rays reviewed with Dr. Mart and we are still recommending nonweightbearing to the right lower extremity, likely for another 4 weeks. -Patient can follow-up as scheduled in office 03/04/25 Plan discussed and agreed upon by my Supervising Physician, Dr Mart.
--- NOTE | 2025-02-25 15:10 | SWNOTE1 ---
ROMA received call from Edith at [facility]. Pt had reached out to her with concerns about going home and the discharge plans. ROMA let Edith know that we were waiting on ortho consult to determine needs at discharge and if pt needs SNF again. SW to go speak with pt. SW did see ortho consult documented and will need at least 4 more weeks NWB. SW stopped in to speak with pt. SW and pt spoke about nursing facility/rehab. 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 SW explained there is a chance his insurance will deny, but there is also a chance they will approved since he did get cut and tried it at home and ended up back at hospital. Pt voiced he just can't do it at home right now with the wheelchair, oxygen, and weakness. ROMA assured pt that we will try to get approval again. ROMA explained to pt that just like last time we have to send to a facility and they submit to insurance and insurance makes the final determination. Pt does not want [facility] again. ROMA provided list from medicare.gov. Pt would like to try [facility] and if they can not, then work towards [facility]. Pt voiced he is scared of having to go back home on his own. He stated he does not really have anyone except a friend to help him. ROMA again let pt know that we will try and go from there. Pt in agreement. ROMA reached out to Melissa at [facility]. She stated she will have an opening on Tuesday. ROMA reached out to Florencia at [facility]. She will review referral and has an opening. Referral sent to [facility]. Referral included face sheet, ED note, H&P, provider notes, case management report, ortho consult, nursing notes, diagnostic imaging, and med list. ROMA called PT/OT to see if they are coming back to see pt, no answer. ROMA to call back again.
--- NOTE | 2025-02-25 15:31 | SWNOTE1 ---
SW called over to physical therapy to see if someone was available to come over and see pt, unsure as they were booked rest of day.
--- NOTE | 2025-02-25 16:10 | SWNOTE1 ---
SW stopped back in to let pt know [facility] does not have an opening until later this week. Pt's daughter in room as well. SW let them know that [facility] is reviewing referral. Pt again voiced his concerns about not getting approved for SNF and not being able to do it at home. SW did let him know that he does have Medicaid, SW asked if he has ever thought about going to nursing facility [employer]? SW did stated it may be different once he can bear weight, but he may need to stay at nursing facility under his Medicaid if he is not able to care for himself at home. Pt seemed a little confused by all this and SW attempted to explain that his Medicaid would be form of payment. Daughter did ask if they would take his disability. SW let her know that we can go down that road if he does not get approved by his [employer] and can't return safely to home.
[2025-02-25] MEDS: DOXEPIN HCL 10 MG CAPSULE 20 MG PO (22:48)
[2025-02-26] VITALS (11 sets, daily range): BP systolic 142–168; BP diastolic 70–90; PULSE 84–116; TEMP 36.3–36.7; O2SAT 91–98
[2025-02-26] MEDS: METHYLPREDNISOLONE SOD SUCC PF 40 MG/ML VIAL IVP ×3 (04:00→17:27)
[2025-02-26] MEDS: IPRATROPIUM/ALBUTEROL SULFATE 3 ML AMPUL.NEB IH ×3 (04:30→22:49)
[2025-02-26 05:54] LABS: Hematocrit 35.6 % (42.0-54.0); Hemoglobin 11.6 g/dL (14.0-18.0); Immature Granulocytes Abs Auto 0.05 10^3/uL (0.00-0.03); Immature Granulocytes Pct Auto 0.7 % (0.0-0.5); Lymphocytes Absolute Auto 0.5 10^3/uL (1.2-3.8); Lymphocytes Percent Auto 6.6 % (20.5-60.0); Mean Corpuscular HGB Conc 32.6 g/dL (29.9-35.2); Mean Corpuscular Hemoglobin 29.3 pg (25.9-34.0); Mean Corpuscular Volume 89.9 fL (80.0-94.0); Monocytes Absolute Auto 0.2 10^3/uL (0.3-0.8); Neutrophils Absolute Auto 6.8 10^3/uL (1.4-6.5); Neutrophils Percent Auto 89.7 % (43.0-75.0); Platelet Count 289 10^3/uL (150-450); Red Blood Count 3.96 10^6/uL (4.70-6.10); Red Cell Distribution Width 15.1 % (11.0-15.0); White Blood Count 7.6 10^3/uL (4.0-11.0)
[2025-02-26 06:09] LABS: Anion Gap 13.4; BUN Creatinine Ratio 29.5; Calcium 8.8 mg/dL (8.5-10.1); Carbon Dioxide 28.7 mmol/L (21.0-32.0); Chloride 106 mmol/L (98-107); Estimated GFR (African America >60 (>=60 mL/min/1.73m^2); Estimated GFR (Non-African Ame >60 (>=60 mL/min/1.73m^2); Glucose 135 mg/dL (74-106); Potassium 4.1 mmol/L (3.5-5.1); Sodium 144 mmol/L (136-145)
[2025-02-26] MEDS: CETIRIZINE HCL 10 MG TABLET PO (09:24)
[2025-02-26] MEDS: MAGNESIUM OXIDE 400 MG TABLET PO ×2 (09:24→21:05)
[2025-02-26] MEDS: POTASSIUM CHLORIDE 10 MEQ ER TABLET PO ×2 (09:24→21:05)
[2025-02-26] MEDS: ROFLUMILAST 500 MCG TABLET PO (09:24)
[2025-02-26] MEDS: OLANZapine 5 MG TABLET PO (09:24)
[2025-02-26] MEDS: ASPIRIN 81 MG TABLET.DR PO (09:24)
[2025-02-26] MEDS: PANTOPRAZOLE SODIUM 40 MG TABLET.DR PO (09:24)
[2025-02-26] MEDS: DILTIAZEM HCL 180 MG CAP.ER.24H PO (09:24)
[2025-02-26] MEDS: IBUPROFEN 400 MG TABLET 800 MG PO (09:32)
[2025-02-26] MEDS: BUDESONIDE 0.5 MG/2 ML AMPULE NEB IH ×2 (11:14→22:49)
--- NOTE | 2025-02-26 11:18 | CM.NOTE ---
Rounds made with Dr. De Dios, pt continues to require oxygen. PT and OT will evaluate pt today. Continue treatment, no discharge today.
[2025-02-26] MEDS: DOCUSATE SODIUM 100 MG CAPSULE PO ×2 (11:36→21:05)
--- NOTE | 2025-02-26 11:47 | PM.PN ---
Progress Note: Subjective Subjective Interval history: Patient stable this am. Continues to have mild SOB and cough. Remains on oxygen. Reports mild hip pain and worse with PT. Difficult to transfer and maintain NWB to [facility]. Normal appetite and no emesis or diarrhea. No chest pain or palpitations. Exam Constitutional Vital Signs, click to edit/add: Last Vital Signs Temp 97.4 F L 02/26/25 11:34 Pulse 100 H 02/26/25 11:34 Resp 22 H 02/26/25 11:34 BP 149/70 H 02/26/25 11:34 Pulse Ox 93 L 02/26/25 11:34 O2 Del Method Nasal Cannula 02/26/25 11:34 O2 Flow Rate 3 02/26/25 11:34 Documenting provider has reviewed patient's vital signs: yes Common normals: no apparent distress, oriented x3 and alert HENMT Common normals: normocephalic Eye Common normals: PERRL and EOMs intact bilaterally Respiratory Common normals: normal respiratory effort Auscultation: wheezes expiratory wheezes and diminished lung sounds Cardio Common normals: regular rate, regular rhythm, no gallops, no murmurs and no rub GI Common normals: Normal to inspection, nondistended, normoactive bowel sounds present and non-tender Extremity Common normals: no pedal edema Progress Note: Objective Labs Labs: Short CBC 02/26/25 Range/Units 05:49 WBC 7.6 (4.0-11.0) 10^3/uL Hgb 11.6 L (14.0-18.0) g/dL Hct 35.6 L (42.0-54.0) % Plt Count 289 (150-450) 10^3/uL BMP 02/26/25 05:49 Sodium 144 Potassium 4.1 Chloride 106 Carbon Dioxide 28.7 BUN 26.0 H Creatinine 0.88 Glucose 135 H Calcium 8.8 Progress Note: A&P Assessment and Plan (1) Acute infective exacerbation of chronic obstructive airway disease: (2) Acute bronchitis: (3) Closed fracture of neck of right femur with routine healing: (4) HTN (hypertension): Qualifiers: Hypertension type: primary hypertension Qualified Code(s): I10 - Essential (primary) hypertension (5) Paroxysmal atrial fibrillation: Plan Patient slowly improving. Continue steroids and breathing treatments for COPD. Wean O2 as tolerated. Continue PT/OT for weakness. Ortho recommends non weight bearing for at least 4 more weaks. Information sent to insurance for precertification.
--- NOTE | 2025-02-26 12:00 | CM.NOTE ---
E-mailed Florencia at [facility] progress notes, PT and OT evaluations. Called Florencia to confirm they had been received.
[2025-02-26] MEDS: CYCLOSPORINE 0.05% OP (21:09)
[2025-02-26] MEDS: DOXEPIN HCL 10 MG CAPSULE 20 MG PO (22:59)
[2025-02-27] VITALS (9 sets, daily range): BP systolic 140–153; BP diastolic 65–82; PULSE 87–118; TEMP 36.3–36.8; O2SAT 94–97
[2025-02-27] MEDS: METHYLPREDNISOLONE SOD SUCC PF 40 MG/ML VIAL IVP ×3 (02:56→17:20)
[2025-02-27] MEDS: IPRATROPIUM/ALBUTEROL SULFATE 3 ML AMPUL.NEB IH ×4 (04:00→23:25)
[2025-02-27 05:29] LABS: Basophils Percent Auto 0.1 % (0.2-2.0); Hematocrit 38.7 % (42.0-54.0); Hemoglobin 12.2 g/dL (14.0-18.0); Immature Granulocytes Abs Auto 0.06 10^3/uL (0.00-0.03); Immature Granulocytes Pct Auto 0.9 % (0.0-0.5); Lymphocytes Absolute Auto 0.4 10^3/uL (1.2-3.8); Lymphocytes Percent Auto 6.5 % (20.5-60.0); Mean Corpuscular HGB Conc 31.5 g/dL (29.9-35.2); Mean Corpuscular Hemoglobin 28.5 pg (25.9-34.0); Mean Corpuscular Volume 90.4 fL (80.0-94.0); Mean Platelet Volume 9.3 fL (9.5-13.5); Monocytes Absolute Auto 0.2 10^3/uL (0.3-0.8); Monocytes Percent Auto 3.2 % (1.7-12.0); Neutrophils Absolute Auto 6.1 10^3/uL (1.4-6.5); Neutrophils Percent Auto 89.3 % (43.0-75.0); Platelet Count 298 10^3/uL (150-450); Red Blood Count 4.28 10^6/uL (4.70-6.10); White Blood Count 6.8 10^3/uL (4.0-11.0)
[2025-02-27 05:46] LABS: Anion Gap 12.1; Calcium 8.7 mg/dL (8.5-10.1); Carbon Dioxide 29.7 mmol/L (21.0-32.0); Chloride 107 mmol/L (98-107); Estimated GFR (African America >60 (>=60 mL/min/1.73m^2); Estimated GFR (Non-African Ame >60 (>=60 mL/min/1.73m^2); Glucose 133 mg/dL (74-106); Potassium 3.8 mmol/L (3.5-5.1); Sodium 145 mmol/L (136-145)
--- NOTE | 2025-02-27 07:53 | CM.NOTE ---
2nd Important Message from Medicare discussed with pt, pt denies questions or concerns.
[2025-02-27] MEDS: POTASSIUM CHLORIDE 10 MEQ ER TABLET PO ×2 (09:40→21:35)
[2025-02-27] MEDS: DILTIAZEM HCL 180 MG CAP.ER.24H PO (09:40)
[2025-02-27] MEDS: PANTOPRAZOLE SODIUM 40 MG TABLET.DR PO (09:40)
[2025-02-27] MEDS: MAGNESIUM OXIDE 400 MG TABLET PO ×2 (09:40→21:35)
[2025-02-27] MEDS: OLANZapine 5 MG TABLET PO (09:40)
[2025-02-27] MEDS: ROFLUMILAST 500 MCG TABLET PO (09:40)
[2025-02-27] MEDS: CETIRIZINE HCL 10 MG TABLET PO (09:40)
[2025-02-27] MEDS: ASPIRIN 81 MG TABLET.DR PO (09:41)
--- NOTE | 2025-02-27 10:30 | CM.NOTE ---
Rounds made with Dr. Robertson, discussed plan of care with pt. Pt verbalizes feeling increased SOB, Dr. De Dios will get CT of chest today and start antibiotic. Pt continues on oxygen @3L [place].
[2025-02-27] MEDS: BUDESONIDE 0.5 MG/2 ML AMPULE NEB IH ×2 (11:02→23:25)
--- NOTE | 2025-02-27 11:07 | CT_ITS ---
The [address] [address] Patient Name: MATEO STEARNS MRN: [id number] date: 1960 Sex: M Assigned Patient Location: Current Patient Location: Accession/Order Number: [id number] Exam Date: 02/27/2025 11:37 Report Date: 02/27/2025 11:51 At the request of: TEO LOWRY MD Procedure: CT chest wo con CT CHEST WITHOUT CONTRAST COMPARISON: 04/09/2024 CLINICAL DATA: Shortness of breath. Exacerbation of COPD. Spiral images were obtained through the chest without contrast. Images were reviewed using both narrow and wide window settings. This CT exam was performed using one or more following dose reduction techniques: Automated exposure control, adjustment of the mA and/or kV according to patient size, or use of iterative reconstruction technique. The heart is within normal limits for size. A trace amount of pericardial fluid is seen. Coronary disease is noted. The ascending aorta is normal in diameter. There is redemonstration of a saccular aneurysm off the superior aspect of the aortic arch with diameter approximately 4.3 cm on the reconstructions, previously 3.5 cm at a comparable level. A small saccular aneurysm is again seen at the diaphragmatic hiatus extending toward the left. Diameter at this site is 3 cm, not significantly changed. There is prominent atherosclerotic plaque at the aortic arch, descending aorta and proximal great vessels. There are calcified mediastinal and hilar lymph nodes. Minor gynecomastia is seen. There is similar wedge deformity at T9 and developing which deformity at the inferior aspect of T7 where there is sclerosis. Mild endplate spurring is also seen. An azygos lobe is visualized. There is obstructive lung disease with airspace lucencies a subpleural blebs. Scarring is present. No developing consolidation, pleural effusion or pneumothorax is seen. No soft tissue pulmonary nodularity is noted. Limited cuts through the upper abdomen show splenic granulomas. CT/CT chest wo con IMPRESSION: ENLARGING SACCULAR ANEURYSM AT THE AORTIC ARCH AND SIMILAR AT THE DIAPHRAGMATIC HIATUS. OBSTRUCTIVE LUNG DISEASE. GRANULOMATOUS CHANGES. PULMONARY SCARRING. NEW T7 COMPRESSION DEFORMITY. Impression dictated by: Tawnya Ramirez M.D.02/27/2025 11:51 AM Dictation Location: [place] [address] Electronically authenticated by: [id number] Y Date: 02/27/2025 11:51
--- NOTE | 2025-02-27 11:23 | PM.PN ---
Progress Note: Subjective Subjective Interval history: C/o worsening SOB this am. Continues to have SOB and cough but getting worse. Feels like not able to take deep breath. Afebrile. Remains on oxygen. Reports mild hip pain and worse with PT. Difficult to transfer and maintain NWB to E. Normal appetite and no emesis or diarrhea. No chest pain or palpitations. Exam Constitutional Vital Signs, click to edit/add: Last Vital Signs Temp 97.8 F 02/27/25 08:00 Pulse 118 H 02/27/25 08:00 Resp 24 H 02/27/25 08:00 BP 152/82 H 02/27/25 08:00 Pulse Ox 95 02/27/25 08:00 O2 Del Method Nasal Cannula 02/27/25 08:00 O2 Flow Rate 3 02/27/25 08:00 Documenting provider has reviewed patient's vital signs: yes Common normals: no apparent distress, oriented x3 and alert HENMT Common normals: normocephalic Eye Common normals: PERRL and EOMs intact bilaterally Respiratory Auscultation: wheezes expiratory wheezes and diminished lung sounds Cardio Common normals: regular rate, regular rhythm, no gallops, no murmurs and no rub GI Common normals: Normal to inspection, nondistended, normoactive bowel sounds present and non-tender Extremity Common normals: no pedal edema Progress Note: Objective Labs Labs: Short CBC 02/27/25 Range/Units 04:59 WBC 6.8 (4.0-11.0) 10^3/uL Hgb 12.2 L (14.0-18.0) g/dL Hct 38.7 L (42.0-54.0) % Plt Count 298 (150-450) 10^3/uL BMP 02/27/25 04:59 Sodium 145 Potassium 3.8 Chloride 107 Carbon Dioxide 29.7 BUN 32.0 H Creatinine 0.80 Glucose 133 H Calcium 8.7 Progress Note: A&P Assessment and Plan (1) Acute infective exacerbation of chronic obstructive airway disease: (2) Acute bronchitis: (3) Closed fracture of neck of right femur with routine healing: (4) HTN (hypertension): Qualifiers: Hypertension type: primary hypertension Qualified Code(s): I10 - Essential (primary) hypertension (5) Paroxysmal atrial fibrillation: Plan SOB worse and increased tightness. Check CT chest. Sputum culture pending and start levaquin and rocephin. Continue steroids and breathing treatments. Continue PT for weakness. Monitor vitals.
[2025-02-27] MEDS: CEFTRIAXONE 1,000 MG in 0.9 % SODIUM CHLORIDE 50 ML 100 MG IV (12:23)
--- NOTE | 2025-02-27 12:47 | PT.DAILY ---
Physical Therapy Daily Note PT Daily Note/Assess Start: 02/27/25 12:39 Freq: Status: Active Protocol: Document 02/27/25 11:20 ESHULTZ (Rec: 02/27/25 12:46 ESHULTZ [id number]) Physical Therapy Daily Note/Assessment Time In/Time Out Time In 11:19 Time Out 11:27 Subjective Subjective Patient reports having difficulty with breathing and SOB today. Agreeable to supine exercises. Therapeutic Exercise Time Therapeutic Exercise 8 Minutes (minutes) Therapeutic Exercise 1 Units Therapeutic Exercise Treatment Therapeutic Exercise Supine exercises: Treatment Quad sets x 10 Ankle pumps x 10 Exercises stopped due to radiology coming to get patient for scans. Patient transferred from bed to wheelchair with RW MOD A x2 maintaining NWB status on R LE and assistance for O2 line Total Physical Therapy Time Total Therapy 8 Minutes Total Physical 1 Therapy Units Summary Daily Note Summary Patient tolerated treatment well, is reporting difficulty breathing with SOB but agreeable to exercises in bed. Patient transferred into wheelchair and taken for scans, therefore PT treatment is stopped early today.
[2025-02-27] MEDS: LEVOFLOXACIN IN DEXTROSE 5 % 750 MG/150 ML PREMIX 100 MG IV (13:10)
[2025-02-27] MEDS: 0.9 % SODIUM CHLORIDE 250 ML 10 ML IV (13:11)
--- NOTE | 2025-02-27 14:36 | SWNOTE1 ---
[facility] did start precert on 02/25/25. ROMA sent over updated PT/OT notes from today, physician note, labs, vitals, and nursing notes to Florencia at [facility].
--- NOTE | 2025-02-27 15:25 | SWNOTE1 ---
ROMA spoke with Florencia at [facility] and precert is still pending as she spoke with insurance.
[2025-02-27] MEDS: CYCLOSPORINE 0.05% OP (17:20)
--- NOTE | 2025-02-27 18:59 | NUTR.NU ---
Dietitian consult completed. Educated pt on need for a balanced diet including high-quality PRO at every meal. Provided handout, ?Planning Healthy Meals.? Pt receptive, indicated understanding. However, he lives alone and doesn?t always eat regular meals. Suggested Mobile Meals when he returns to his apartment. Will continue to follow PRN.
[2025-02-27] MEDS: ONDANSETRON PF 4 MG/2 ML VIAL IV (21:40)
[2025-02-27] MEDS: DOXEPIN HCL 10 MG CAPSULE 20 MG PO (23:40)
[2025-02-28] VITALS (8 sets, daily range): BP systolic 123–188; BP diastolic 76–104; PULSE 89–121; TEMP 36.4–36.8; O2SAT 92–97
[2025-02-28] MEDS: METHYLPREDNISOLONE SOD SUCC PF 40 MG/ML VIAL IVP ×3 (02:59→18:05)
[2025-02-28] MEDS: IPRATROPIUM/ALBUTEROL SULFATE 3 ML AMPUL.NEB IH ×4 (04:06→23:31)
[2025-02-28 06:27] LABS: Basophils Percent Auto 0.1 % (0.2-2.0); Hematocrit 39.9 % (42.0-54.0); Hemoglobin 12.8 g/dL (14.0-18.0); Immature Granulocytes Abs Auto 0.08 10^3/uL (0.00-0.03); Immature Granulocytes Pct Auto 1.2 % (0.0-0.5); Lymphocytes Absolute Auto 0.3 10^3/uL (1.2-3.8); Lymphocytes Percent Auto 4.4 % (20.5-60.0); Mean Corpuscular HGB Conc 32.1 g/dL (29.9-35.2); Mean Corpuscular Hemoglobin 28.8 pg (25.9-34.0); Mean Corpuscular Volume 89.9 fL (80.0-94.0); Mean Platelet Volume 9.3 fL (9.5-13.5); Monocytes Absolute Auto 0.3 10^3/uL (0.3-0.8); Monocytes Percent Auto 3.7 % (1.7-12.0); Neutrophils Absolute Auto 6.2 10^3/uL (1.4-6.5); Neutrophils Percent Auto 90.6 % (43.0-75.0); Platelet Count 272 10^3/uL (150-450); Red Blood Count 4.44 10^6/uL (4.70-6.10); Red Cell Distribution Width 14.8 % (11.0-15.0); White Blood Count 6.8 10^3/uL (4.0-11.0)
[2025-02-28 06:36] LABS: BUN Creatinine Ratio 31.4; Calcium 8.7 mg/dL (8.5-10.1); Carbon Dioxide 27.1 mmol/L (21.0-32.0); Chloride 107 mmol/L (98-107); Estimated GFR (African America >60 (>=60 mL/min/1.73m^2); Estimated GFR (Non-African Ame >60 (>=60 mL/min/1.73m^2); Glucose 126 mg/dL (74-106); Potassium 4.1 mmol/L (3.5-5.1); Sodium 144 mmol/L (136-145)
[2025-02-28] MEDS: CYCLOSPORINE 0.05% OP ×2 (07:53→18:05)
--- NOTE | 2025-02-28 10:00 | CM.NOTE ---
Rounds made with Dr. De Dios, discussed with pt about denial for skilled therapy. Pt at this time would like to look into care home care with Medicaid. Message SW and she will reach out to [facility]. Pt could possibly discharge today.
--- NOTE | 2025-02-28 10:01 | SWNOTE1 ---
ROMA had an email and voicemail from pt's insurance. They are requesting a peer to peer be completed on patient for him to go to SNF. SW to provide doctor with peer to peer information to be scheduled by 5:00pm today.
--- NOTE | 2025-02-28 10:18 | SWNOTE1 ---
Case management let doctor know about peer to peer. Doctor is not going to complete peer to peer. Pt will be discharged. ROMA has sent a message to Florencia at [facility] to see if pt can go oil heaterman under his Medicaid. Waiting to hear back.
[2025-02-28] MEDS: BUDESONIDE 0.5 MG/2 ML AMPULE NEB IH ×2 (10:43→23:31)
[2025-02-28] MEDS: DILTIAZEM HCL 180 MG CAP.ER.24H PO (10:52)
[2025-02-28] MEDS: ASPIRIN 81 MG TABLET.DR PO (10:52)
[2025-02-28] MEDS: ROFLUMILAST 500 MCG TABLET PO (10:53)
[2025-02-28] MEDS: MAGNESIUM OXIDE 400 MG TABLET PO ×2 (10:53→21:22)
--- NOTE | 2025-02-28 10:53 | PT.DAILY ---
Physical Therapy Daily Note PT Daily Note/Assess Start: 02/27/25 12:39 Freq: Status: Active Protocol: Document 02/28/25 10:10 GISEL (Rec: 02/28/25 10:52 GISEL [id number]) Physical Therapy Daily Note/Assessment Time In/Time Out Time In 10:08 Time Out 10:29 Subjective Subjective Patient reports continued difficulty with breathing but is agreeable to supine/seated exercises. Therapeutic Exercise Time Therapeutic Exercise 21 Minutes (minutes) Therapeutic Exercise 1 Units Therapeutic Exercise Treatment Therapeutic Exercise Supine: Treatment Ankle pumps x 10 SLR x 10 Hip abd x 10 Heel slides x 10 QS x 10 GS x 10 Seated EOB: Marches x 10 LAQ x 10 Hip abd x 10 Add squeezes x 10 Therapeutic Activity Treatment Bed Mobility Ability Modified Independent Therapeutic Activity Was able to sit EOB unsupported with good balance while Comments completing seated B LE strengthening exercises. Total Physical Therapy Time Total Therapy 21 Minutes Total Physical 1 Therapy Units Summary Daily Note Summary Patient continues to have difficulty with breathing but is motivated and agreeable to exercises today. Several rest breaks required in between exercises due to difficulty breathing, but patient recovers well each time. Patient in bed with call light in reach and all needs met post treatment. Recommend SNF at [place] to continue to strengthen B LE.
[2025-02-28] MEDS: DOCUSATE SODIUM 100 MG CAPSULE PO ×2 (10:54→21:22)
[2025-02-28] MEDS: CETIRIZINE HCL 10 MG TABLET PO (10:54)
[2025-02-28] MEDS: POTASSIUM CHLORIDE 10 MEQ ER TABLET PO ×2 (10:54→21:22)
[2025-02-28] MEDS: OLANZapine 5 MG TABLET PO (10:54)
[2025-02-28] MEDS: PANTOPRAZOLE SODIUM 40 MG TABLET.DR PO (10:55)
[2025-02-28] MEDS: CEFTRIAXONE 1,000 MG in 0.9 % SODIUM CHLORIDE 50 ML 100 MG IV (12:08)
[2025-02-28] MEDS: LEVOFLOXACIN IN DEXTROSE 5 % 750 MG/150 ML PREMIX 100 MG IV (12:41)
--- NOTE | 2025-02-28 15:01 | SWNOTE1 ---
[facility] is not able to accept mcc per their DON and administration as he does not have a supervisor intermediates payor. ROMA asked about his Medicaid. She stated he has [place] Medicaid and that does not cover supervisor intermediates. ROMA called our financial dept and did confirm this. ROMA then reached out to Melissa at [facility] to see if they are able to assist with supervisor intermediates care in regards to Medicaid. Melissa stated it should be an easy transition as he already qualifies for Medicaid. She stated she can review and try to move beds around for supervisor intermediates. Referral sent to [facility]. Referral included face sheet, ED note, H&P, provider notes, case management report, ortho consult, nursing notes, diagnostic imaging, med list, and PT/OT notes.
--- NOTE | 2025-02-28 15:05 | SWNOTE1 ---
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 ROMA updated the doctor and pt is able to stay tonight and discharge tomorrow. ROMA updated nurse and patient.
--- NOTE | 2025-02-28 15:06 | SWNOTE1 ---
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 Pt did ask if he will be getting therapy? SW explained he will not initially since his [employer] medicare denied. SW stated he is going there middle or intermediate school principal as he is not safe to return home. SW asked pt if he felt safe to go home? Pt stated no way that he can't return home at this time. SW advised pt that for the time he will be living at [facility]. SW let him know once his Medicaid is switched over, there is a possibility they can get some therapy under his Medicaid. SW also let him know that once he can bear weight and is getting around better he can always return home if he wants to. Pt voiced understanding.
--- NOTE | 2025-02-28 16:38 | P.PN_ITS ---
Progress Note: Subjective Subjective Interval history: Patient stable this am. Continues to have SOB and cough and worse with activity.. Afebrile. Remains on oxygen. Reports mild hip pain and worse with PT. Difficult to transfer and maintain NWB to [facility]. Normal appetite and no emesis or diarrhea. No chest pain or palpitations. Exam Constitutional Vital Signs, click to edit/add: Last Vital Signs Temp 98.2 F 02/28/25 11:31 Pulse 121 H 02/28/25 15:57 Resp 18 02/28/25 11:31 BP 157/76 H 02/28/25 11:31 Pulse Ox 95 02/28/25 15:57 O2 Del Method Nasal Cannula 02/28/25 15:57 O2 Flow Rate 3 02/28/25 15:57 Documenting provider has reviewed patient's vital signs: yes Common normals: no apparent distress, oriented x3 and alert HENMT Common normals: normocephalic Eye Common normals: PERRL and EOMs intact bilaterally Respiratory Auscultation: wheezes expiratory wheezes and diminished lung sounds Cardio Common normals: regular rate, regular rhythm, no gallops, no murmurs and no rub GI Common normals: Normal to inspection, nondistended, normoactive bowel sounds present and non-tender Extremity Common normals: no pedal edema Progress Note: Objective Labs Labs: Short CBC 02/28/25 Range/Units 05:58 WBC 6.8 (4.0-11.0) 10^3/uL Hgb 12.8 L (14.0-18.0) g/dL Hct 39.9 L (42.0-54.0) % Plt Count 272 (150-450) 10^3/uL [facility] 02/28/25 05:58 Sodium 144 Potassium 4.1 Chloride 107 Carbon Dioxide 27.1 BUN 27.0 H Creatinine 0.86 Glucose 126 H Calcium 8.7 Progress Note: A&P Assessment and Plan (1) Acute infective exacerbation of chronic obstructive airway disease: (2) Acute bronchitis: (3) Closed fracture of neck of right femur with routine healing: (4) HTN (hypertension): Qualifiers: Hypertension type: primary hypertension Qualified Code(s): I10 - Essential (primary) hypertension (5) 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 CT without infiltrate. Aneurysm slightly larger and need to follow with vascular as outpatient. Continues to have difficulty with transfers and movement. Likely will need SNF.
[2025-02-28] MEDS: ENSURE HP 237 ML LIQUID PO (21:22)
[2025-03-01] MEDS: DOXEPIN HCL 10 MG CAPSULE 20 MG PO (00:18)
[2025-03-01 00:48] VITALS: BP 154/80; PULSE 93; TEMP 36.6; O2SAT 93
[2025-03-01] MEDS: IPRATROPIUM/ALBUTEROL SULFATE 3 ML AMPUL.NEB IH ×2 (04:11→11:04)
[2025-03-01 04:12] VITALS: PULSE 110; O2SAT 93
[2025-03-01] MEDS: METHYLPREDNISOLONE SOD SUCC PF 40 MG/ML VIAL IVP ×2 (04:13→10:06)
[2025-03-01 04:34] VITALS: BP 165/77; PULSE 106; TEMP 36.5; O2SAT 92
[2025-03-01 06:16] LABS: Hematocrit 40.7 % (42.0-54.0); Hemoglobin 12.9 g/dL (14.0-18.0); Mean Corpuscular HGB Conc 31.7 g/dL (29.9-35.2); Mean Corpuscular Hemoglobin 28.7 pg (25.9-34.0); Mean Corpuscular Volume 90.4 fL (80.0-94.0); Mean Platelet Volume 9.3 fL (9.5-13.5); Platelet Count 285 10^3/uL (150-450); Red Cell Distribution Width 14.8 % (11.0-15.0); White Blood Count 6.7 10^3/uL (4.0-11.0)
[2025-03-01 06:28] LABS: Anion Gap 12.7; BUN Creatinine Ratio 39.8; Calcium 8.5 mg/dL (8.5-10.1); Carbon Dioxide 29.2 mmol/L (21.0-32.0); Chloride 107 mmol/L (98-107); Estimated GFR (African America >60 (>=60 mL/min/1.73m^2); Estimated GFR (Non-African Ame >60 (>=60 mL/min/1.73m^2); Glucose 131 mg/dL (74-106); Potassium 3.9 mmol/L (3.5-5.1); Sodium 145 mmol/L (136-145)
[2025-03-01 06:32] LABS: Monocytes Absolute Manual 0.26 10^3/uL (0.30-0.80); Segmented Neut Absolute Manual 6.03 10^3/uL (1.4-6.5)
[2025-03-01] MEDS: OLANZapine 5 MG TABLET PO (08:23)
[2025-03-01] MEDS: ROFLUMILAST 500 MCG TABLET PO (08:23)
[2025-03-01] MEDS: CYCLOSPORINE 0.05% OP (08:23)
[2025-03-01] MEDS: MAGNESIUM OXIDE 400 MG TABLET PO (08:23)
[2025-03-01] MEDS: DOCUSATE SODIUM 100 MG CAPSULE PO (08:23)
[2025-03-01] MEDS: ASPIRIN 81 MG TABLET.DR PO (08:23)
[2025-03-01] MEDS: POTASSIUM CHLORIDE 10 MEQ ER TABLET PO (08:23)
[2025-03-01] MEDS: ENSURE HP 237 ML LIQUID PO (08:23)
[2025-03-01] MEDS: PANTOPRAZOLE SODIUM 40 MG TABLET.DR PO (08:23)
[2025-03-01] MEDS: CETIRIZINE HCL 10 MG TABLET PO (08:23)
[2025-03-01] MEDS: DILTIAZEM HCL 180 MG CAP.ER.24H PO (08:23)
[2025-03-01 08:32] VITALS: BP 143/76; PULSE 94; TEMP 36.6; O2SAT 92
--- NOTE | 2025-03-01 09:10 | SWNOTE1 ---
ROMA faxed CRF, dc med rec, pre-admission review form, and [facility] to [facility] to request pt's level of care.
[2025-03-01] MEDS: OXYMETAZOLINE HCL 0.05% NASAL SPRAY 2 SPRAY NS (10:06)
--- NOTE | 2025-03-01 10:11 | SWNOTE1 ---
ROMA received level of care from [facility]. ROMA sent to Melissa at [facility]. Pt is discharging today. ROMA faxed over dc med rec, LOC, and CRF to Melissa at [facility]. ROMA also faxed updated labs and vitals.
--- NOTE | 2025-03-01 10:35 | CM.NOTE ---
Rounds made with Dr. De Dios. Plan for discharge to [facility] terminal carman today. Mr. Rajput verbalizes understanding.
[2025-03-01] MEDS: BUDESONIDE 0.5 MG/2 ML AMPULE NEB IH (11:04)
[2025-03-01 11:06] VITALS: PULSE 95; O2SAT 95
--- NOTE | 2025-03-01 11:12 | P.DS_ITS ---
DS: Providers Provider Date of admission: 02/23/25 15:55 Primary care physician: Kathie Sánchez NP Consults: 02/23/25 Consult to Dietitian Routine Reason for consultation: malnutrition Consult to Chain Saw Driver Routine Reason for consult:: Home Health 02/23/25 17:47 Consult to Pharmacy Routine Consulting Provider: Reason for consultation: Please [place] me when Med Rec is Updated Has provider been notified: No 02/25/25 Occupational Therapy Eval and Treat Routine Reason for consultation: weakness Physical Therapy Eval and Treat Routine Reason for consultation: weaknes 02/25/25 07:02 Consult to Orthopedic Surgery Routine Consulting Provider: James Mart Reason For Exam: Reason for consultation: fx Has provider been notified: No 02/26/25 Consult to Pulmonology Routine Consulting Provider: Josué Shea Reason for consultation: COPD exacerbation Has provider been notified: No DS: Diagnosis Discharge Diagnosis (1) Acute infective exacerbation of chronic obstructive airway disease: (2) Acute bronchitis: (3) Acute and chronic respiratory failure with hypoxia: (4) Closed fracture of neck of right femur with routine healing: (5) HTN (hypertension): Qualifiers: Hypertension type: primary hypertension Qualified Code(s): I10 - Essential (primary) hypertension (6) 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 64 y/o male with recent right hip fracture and NWB presented to ER with weakness and SOB. Spent several weeks at SNF then discharged home. Once home continued to have weakness and difficulty with transfers. Severe SOB and chest tight. History of COPD and to ER. Afebrile. WBC 13. CT abdomen and pelvis negative. Admitted for treatment. Hospital course: Started steroids and breathing treatments. Developed hypoxia and on oxygen. Reports uses oxygen when needed and typically when COPD worse. Started PT/OT. Ortho consulted and x-ray showed healing fracture. Recommend NWB for at least 4 weeks[address] SOB worse and CT without infiltrate. Started rocephin and levaquin. Aortic arch aneurysm again noted and slightly larger. Patient was scheduled to see vascular. Breathing improved. Insurance denied SNF. business services analyst arranged for ECF. Transferred in stable condition. Will complete antibiotics and steroids as directed. Follow with ortho and vascular surgery as scheduled. Time Spent with Patient Time attestation: Total time spent providing and/or coordinating discharge services: Time spent: greater than 30 minutes Exam Constitutional Vital Signs, click to edit/add: Last Vital Signs Temp 97.8 F 03/01/25 08:32 Pulse 95 H 03/01/25 11:06 Resp 18 03/01/25 08:32 BP 143/76 H 03/01/25 08:32 Pulse Ox 95 03/01/25 11:06 O2 Del Method Nasal Cannula 03/01/25 11:06 O2 Flow Rate 3 03/01/25 11:06 Documenting provider has reviewed patient's vital signs: yes Common normals: no apparent distress, oriented x3 and alert HENMT Common normals: normocephalic Eye Common normals: PERRL and EOMs intact bilaterally Respiratory Common normals: normal respiratory effort and clear to auscultation bilaterally Cardio Common normals: regular rate, regular rhythm, no gallops, no murmurs and no rub GI Common normals: Normal to inspection, nondistended, normoactive bowel sounds present and non-tender Extremity Common normals: no pedal edema DS: Data Data Completed and Pending Labs on day of discharge: Labs from last 24 hours 03/01/25 05:33 WBC 6.7 RBC 4.50 L Hgb 12.9 L Hct 40.7 L MCV 90.4 MCH 28.7 MCHC 31.7 RDW 14.8 Plt Count 285 MPV 9.3 L Seg Neuts % (Manual) 90.0 H Lymphocytes % (Manual) 6.0 L Monocytes % (Manual) 4.0 Eosinophils % (Manual) 0.0 L Basophils % (Manual) 0.0 L Neutrophils # (Manual) 6.03 Lymphocytes # (Manual) 0.40 L Monocytes # (Manual) 0.26 L Eosinophils # (Manual) 0.00 Basophils # (Manual) 0.00 Sodium 145 Potassium 3.9 Chloride 107 Carbon Dioxide 29.2 Anion Gap 12.7 BUN 37.0 H Creatinine 0.93 Est GFR ( Amer) >60 Est GFR (Non-Af Amer) >60 BUN/Creatinine Ratio 39.8 Glucose 131 H Calcium 8.5 Discharge Plan Discharge Disposition: Xfer SNF Discharge Medications: New prednisone 50 mg tablet 50 mg PO DAILY 5 Days Qty: 5 0RF levofloxacin 750 mg tablet 750 mg PO DAILY 7 Days Qty: 7 0RF cefdinir 300 mg capsule 300 mg PO BID 10 Days Qty: 20 0RF Continued albuterol sulfate 90 mcg/actuation HFA aerosol inhaler 2 inh INHALATION Q4H PRN (Reason: shortness of breath or wheezing) aspirin 81 mg tablet,delayed release (DR/EC) 81 mg PO DAILY budesonide-formoterol 160-4.5 mcg/actuation HFA aerosol inhaler 2 puff INHALATION BID diltiazem HCl 180 mg capsule,ext.rel 24h degradable 180 mg PO DAILY pantoprazole 40 mg tablet,delayed release (DR/EC) 40 mg PO DAILY roflumilast 500 mcg tablet 500 mcg PO DAILY ibuprofen 800 mg tablet 800 mg PO Q8H PRN (Reason: pain) cyclosporine 0.05 % dropperette 1 drp OPHTHALMIC (EYE) BID albuterol sulfate 2.5 mg /3 mL (0.083 %) solution for nebulization 2.5 mg inhalation Q6H PRN (Reason: shortness of breath or wheezing) Qty: 90 0RF metoclopramide HCl 10 mg tablet 10 mg PO Q8H PRN (Reason: nausea and vomiting) Print Language: Indonesian Vp Training/Activity Therapy Teacher Instructions: Discharge to [facility] long term care pharmacist Forms: Portal Instructions Follow Up Appointments: Dr. Feliz Sierra office February @11:10 phone [phone]. [address] Barron Sierra office February 8:30 phone# [phone]
--- NOTE | 2025-03-01 11:13 | SWNOTE1 ---
Pt is ready for dc today to [facility]. SW has faxed all discharge paperwork to [facility]. 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 ROMA set up [facility] transport for 12:30. SW notified nurse, [facility], and pt of discharge time. ROMA completed [facility] paperwork and took packet to the floor.
== END 2025-03-01 13:12 | DRG 190 ==
LOC: ER 14:52 → MS 16:02
PROVIDERS: Family Medicine; Admitting Provider Family Medicine; Emergency Provider Emergency Medicine; PCP Nurse Practitioner; Visit Provider Family Medicine
DX: J44.1 Chronic obstructive pulmonary disease with (acute) exacerbation (principal); J96.21 Acute and chronic respiratory failure with hypoxia; E44.0 Moderate protein-calorie malnutrition; J20.9 Acute bronchitis, unspecified; J44.0 Chronic obstructive pulmonary disease with (acute) lower respiratory infection; E87.6 Hypokalemia; E83.42 Hypomagnesemia; D50.9 Iron deficiency anemia, unspecified; R11.0 Nausea; K21.9 Gastro-esophageal reflux disease without esophagitis; I10 Essential (primary) hypertension; S72.009D Fracture of unspecified part of neck of unspecified femur, subsequent encounter for closed fracture with routine healing; X58.XXXD Exposure to other specified factors, subsequent encounter; Z87.01 Personal history of pneumonia (recurrent); I48.0 Paroxysmal atrial fibrillation; Z79.82 Long term (current) use of aspirin; Z79.899 Other long term (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 therapy; F10.21 Alcohol dependence, in remission; Z96.643 Presence of artificial hip joint, bilateral; Z87.891 Personal history of nicotine dependence; I71.22 Aneurysm of the aortic arch, without rupture; R63.0 Anorexia; Z68.20 Body mass index [BMI] 20.0-20.9, adult
CPT/HCPCS: 36415; 71045; 71250; 73502; 74177; 80048; 80053; 81001; 83605; 83690; 83735; 85007; 85025; 85027; 87070; 87086; 87205; 87804; 87811; 94640; 94667; 94668; 94761; 96374; 97110; 97161; 97165; 97535; 99285; J0696; J2405; J2919; Q0169; Q9967

== ENCOUNTER 2025-03-29 09:14 | Outpatient (OUT) | payer MEDICARE, MEDICAID, SELFPAY ==
--- NOTE | 2025-03-29 | NM_ITS ---
Patient Name: MATEO STEARNS MR#: [id number] : 1960 Exam Date: 03/29/2025 Ordering Doctor: DR RENE CLARK M.D. RADIOLOGY REPORT PROCEDURE: NM AGATHA PERF SPECT REST STR COMPARISON: None. INDICATIONS: PRE-OP CARDIOVASCULAR EXAM TECHNIQUE: Exam Description: Stress/Rest one day protocol gated SPECT Rest Imagin.0 mCi Tc-99m Cardiolite IV on 03/29/2025 Stress Imaging 31.5 mCi Tc-99m Cardiolite IV on 03/29/2025 Exercise Protocol: 0.4 mg Lexiscan given IV Heart Rate (bpm): Rest: 92 Max: 118 PMHR: 76 Blood Pressure: Rest: 158/90 Max: 158/90 Symptoms: Rest and peak stress ECG findings were pending, and the exercise portion of the study was pending per attending physician [facility]. For more details, please see separate cardiac stress test report. FINDINGS: QUALITY OF STUDY: Good PERFUSION DEFECT: LOCATION: Inferoapical SIZE: Small SEVERITY: Mild TYPE: Reversible WALL MOTION: Normal LV SIZE: 64 mL. TID / TCD: 1.0 LVEF: Calculated EF 67%. SUMMARY: Myocardial perfusion imaging study is abnormal CONCLUSION: 1. Myocardial perfusion is abnormal with soft tissue attenuation 2. There is a small, partially reversible inferoapical perfusion defect suggestive of ischemia 3. Global left ventricular systolic function is normal 4. No evidence of transient ischemic dilatation Dictated by: Veronica Pope M.D. on 03/29/2025 at 13:38 Approved by: Veronica Pope M.D. on 03/29/2025 at 13:42
--- NOTE | 2025-03-29 09:30 | CA_ITS ---
Patient Name: MATEO STEARNS MR#: [id number] : 1960 Exam Date: 03/29/2025 Ordering Doctor: DR RENE CLARK M.D. ECHOCARDIOGRAM REPORT PROCEDURE: CA ECHO DOPPLER COMPLETE INDICATIONS: Preop, atrial fibrillation, COPD, emphysema COMPARISON: None. DESCRIPTION: COMPLETE ECHOCARDIOGRAM Real-time transthoracic echocardiography with 2D, M-mode, spectral and color flow Doppler performed. QUALITY: Technical quality was good. LEFT VENTRICLE: Normal chamber size. Mildly thickened septal wall. Normal left ventricle stock function without wall motion abnormalities. LV EF: Normal left ventricular ejection fraction 55% DIASTOLIC: Indeterminate diastolic function. ATRIAL SEPTUM: Visually appears intact. LEFT ATRIUM: Normal chamber size. RIGHT ATRIUM: Normal chamber size. RIGHT VENTRICLE: Normal chamber size. Normal right ventricular systolic function. TRICUSPID VALVE: Normal mobility and thickness. No stenosis with trivial regurgitation. Doppler studies reveal mildly (35-45) elevated right sided pressures.RVSP 36 mmHg MITRAL VALVE: Normal mobility and thickness. No evidence of mitral valve stenosis. There is no mitral annular calcification. No mitral regurgitation. AORTIC VALVE: Normal trileaflet appearance. No visible sclerosis. Normal leaflet mobility. No evidence of aortic valve stenosis. No aortic regurgitation. AORTIC ROOT: Normal diameter and appearance. Ascending aorta is normal in size. PULMONIC VALVE: Normal thickness and mobility. No stenosis. No regurgitation. PERICARDIUM: No evidence of pericardial effusion. IVC: Normal size and normal collapse PLEURA: CONCLUSION: Mild septal thickening Normal left ventricular size and systolic function without wall motion abnormalities, ejection fraction 55% Indeterminate left ventricular diastolic function Normal right ventricle size and systolic function Mild pulmonary hypertension, RVSP 36 mmHg No significant valvular abnormalities Adult Echocardiography Procedure Report Left Ventricle LVEDD (3.7 - 5.6 cm): 4.15 cm LVESD (2.2 - 4.0 cm): 2.81 cm LVIVS thickness (0.6 - 1.2 cm): 1.29 cm LVPW thickness (0.5 - 1.0 cm): 0.83 cm e': 0.05 m/s E - e': 12.33 LVOT Max Gradient: 1.45 mm[Hg] LVOT Area (cm2): 0.60 m/s Peak Velocity (LVOT): 0.60 m/s Mean Velocity (LVOT): 0.41 m/s LVOT Diameter 2.22 cm Left Ventricular Ejection Fraction: Left Atrium LA Volume Index (2D A2C): 25.77 ml/m2 Left Atrium Systolic Dimension: 3.06 cm Mitral Valve MV E to A Ratio: 0.93 MV Max Gradient: MV Mean Gradient: Mitral Valve A-Wave Peak Velocity: 0.66 m/s Mitral Valve E-Wave Peak Velocity: 0.61 m/s Cardiovascular Orifice Area: Right Ventricle RV Internal Diastolic Dimension: Aorta AO Root Diam: 3.21 cm Ascending Ao Diam: 2.88 cm Aortic Valve AoV Area (Peak Jose): 2.84 cm2, 2.84 cm2 AoV Area (VTI): 3.36 cm2, 3.36 cm2 Deceleration Daniels: Pressure Half-Time: Peak Velocity(Antegrade Flow): 0.82 m/s Peak Gradient(Antegrade Flow): 2.71 mm[Hg] Mean Velocity(Antegrade Flow): 0.56 m/s Mean Gradient(Antegrade Flow): 1.43 mm[Hg] Velocity Time Integral: 16.56 cm Tricuspid Valve Peak Velocity (Regurgitant Flow): 2.86 m/s Peak Velocity: Pulmonic Valve Mean Gradient: 1.14 mm[Hg] Mean Velocity: 0.50 m/s Peak Velocity: 0.77 m/s, 0.73 m/s Peak Gradient: 2.14 mm[Hg], 2.36 mm[Hg] Right Atrium Right Atrium Systolic Pressure: 30.83 ml, 30.83 ml Dictated by: Evelin Renteria MD on 03/29/2025 at 17:34 Approved by: Evelin Renteria MD on 03/29/2025 at 17:41
--- NOTE | 2025-03-29 11:09 | PC.NURSE ---
Nursing Note Cardiac Stress Test Reviewed: Medication, allergies and patient history reviewed. Stress Test: [ x] Patient tolerated stress test well. [ ] Patient unable to tolerate walking on treadmill. Switched to Lexiscan stress test. [x ] No chest pain noted per patient [ ] Chest pain that resolved prior to leaving stress lab. [x ] No dyspnea noted. [ ] Dyspnea that resolved prior to leaving stress lab. [ x] Patient left stress lab asymptomatic and hemodynamically stable. [ ] Patient taken to the Emergency Room due to non-resolving symptoms following stress test. [ ] Patient achieved target heart rate. [ ] Patient unable to achieve target heart rate. [ x] Aminophylline administered as reversal agent to Lexiscan (Regadenoson). [ ] Nitro administered. Nursing Comments:Pt had Lexiscan test done. Pt had no CP and no SOB but stated he had a headache and abdominal pain that would not go away after 6 minutes after Karen was given. Aminophylline was given and pt stated he felt much better but still had a slight but tolerable headache. Pt left stress lab in to go to cafeteria for breakfast prior to second set of images.
[2025-03-29] MEDS: AMINOPHYLLINE 250 MG/10 ML VIAL 50 MG IVP (11:12)
[2025-03-29] MEDS: REGADENOSON 0.4 MG/5 ML SYRINGE IV (11:12)
--- NOTE | 2025-03-29 18:05 | P.STRESS_ITS ---
Stress Test Stress Test Allergies Allergy/AdvReac Type Severity Reaction Status Date / Time No Known Drug Allergies Allergy Verified 02/23/25 11:12 Requesting physician: RENE CLARK Procedure: Lexiscan EKG stress test General Information: Reason for Stress Test: [Preop evaluation] Cardiac History and Risk Factors: [] Resting 12 - Lead Electrocardiogram: Normal sinus rhythm with sinus arrhythmia, heart rate 84 bpm, poor R progression V1-V3, no T or ST changes Stress Test: Protocol: [Lexiscan 0.4 mg IV injected] Exercise Capacity: [Not applicable] Blood Pressure Response: [Normal] Rhythm: [Sinus rhythm, occasional PACs and PVCs noted] ST - Response: [No ST changes] Patient Response: [Abdominal pain and headache resolved with aminophylline, no chest pain or shortness of breath] Interpretation: Negative Lexiscan EKG stress test for ischemia Myocardial perfusion stress images the result will be reported separately Evelin Renteria MD [facility]
== END 2025-03-29 09:15 | disposition home or self-care (01) ==
LOC: CARD 09:15
PROVIDERS: PCP Nurse Practitioner; Visit Provider Internal Medicine Interventional Cardiology
DX: Z01.810 Encounter for preprocedural cardiovascular examination (principal); I48.0 Paroxysmal atrial fibrillation
CPT/HCPCS: 78452; 93017; 93306; A9500; J0280; J2785

== ENCOUNTER 2025-04-04 08:23 | Outpatient (OUT) | payer MEDICARE, MEDICAID, SELFPAY ==
[2025-04-04 08:56] LABS: Basophils Percent Auto 0.2 % (0.2-2.0); Eosinophils Percent Auto 0.2 % (0.9-7.0); Hematocrit 35.8 % (42.0-54.0); Hemoglobin 11.4 g/dL (14.0-18.0); Immature Granulocytes Abs Auto 0.08 10^3/uL (0.00-0.03); Immature Granulocytes Pct Auto 0.9 % (0.0-0.5); Mean Corpuscular HGB Conc 31.8 g/dL (29.9-35.2); Mean Corpuscular Hemoglobin 28.3 pg (25.9-34.0); Mean Corpuscular Volume 88.8 fL (80.0-94.0); Mean Platelet Volume 8.7 fL (9.5-13.5); Monocytes Absolute Auto 0.6 10^3/uL (0.3-0.8); Monocytes Percent Auto 7.3 % (1.7-12.0); Neutrophils Percent Auto 68.4 % (43.0-75.0); Platelet Count 370 10^3/uL (150-450); Red Blood Count 4.03 10^6/uL (4.70-6.10); Red Cell Distribution Width 14.8 % (11.0-15.0); White Blood Count 8.8 10^3/uL (4.0-11.0)
[2025-04-04 10:18] LABS: Anion Gap 11.3; BUN Creatinine Ratio 19.8; Calcium 9.2 mg/dL (8.5-10.1); Carbon Dioxide 28.1 mmol/L (21.0-32.0); Chloride 102 mmol/L (98-107); Estimated GFR (African America >60 (>=60 mL/min/1.73m^2); Estimated GFR (Non-African Ame >60 (>=60 mL/min/1.73m^2); Glucose 101 mg/dL (74-106); Potassium 3.4 mmol/L (3.5-5.1); Sodium 138 mmol/L (136-145)
== END 2025-04-04 08:24 | disposition home or self-care (01) ==
PROVIDERS: PCP Nurse Practitioner; Visit Provider Family Medicine
DX: J18.9 Pneumonia, unspecified organism (principal); J96.21 Acute and chronic respiratory failure with hypoxia; J44.1 Chronic obstructive pulmonary disease with (acute) exacerbation; I10 Essential (primary) hypertension
CPT/HCPCS: 36415; 80048; 85025

== ENCOUNTER 2025-06-05 08:31 | Outpatient (OUT) | payer MEDICARE, MEDICAID, SELFPAY ==
--- OUTSIDE RECORDS SUMMARY | 2025-03-20 11:45 | XMS_ITS ---
Author Organization [facility] Address [address] [place] [address] [place] [address] Care Team Providers Care Ophthalmic Surgeon Name Role Phone Robin Epps Primary Care Provider Pa White Unavailable [phone] Encounters Encounter Location Date Provider Diagnosis [address] [address] 03/20/2025 Pa Rose Plan Of Treatment No Information Progress Notes * Alphonse STEARNSDOB: [birth year] (64 yo M)Acc No.[id number]:03/20/2025 Patient: Kashmir OrnelasAlphonse MARSHALL Provider: Oj Rose DPM :1960 A ge:64 Y S ex:Male Date:03/20/2025 Address:[id number] Pcp:Robin Epps Subjective: * Chief Complaints: * * Medical History: Objective: * Vitals: Assessment: Plan: * Treatment: * Images: * Electronic signature of [place] in [facility] Rose on 06/05/2025 at 08:36 AM EDT Sign off status: Pending * Provider: Oj Rose DPM Date: 03/20/2025 Generated for Dot gerber/Jyoti/Yvan on: 06/05/2025 08:36 AM EDT
--- OUTSIDE RECORDS SUMMARY | 2025-04-24 05:00 | XMS_ITS ---
Author Organization [facility] in [place] Address [address] [place] [address] Care Team Providers Care Radioisotope Technologist Name Role Phone Kathie Sánchez CNP Primary Care Provider Unavail Josué Busch Unavailable [phone] REASON FOR VISIT 6 Mos F/U -COPD O2 Encounters Encounter Location Date Provider Diagnosis Pulmonary Medicine [place] [address] [place] [address] 04/24/2025 Josué Shea Plan Of Treatment No Information Progress Notes * Alphonse RAJPUTDOB: [birth year] (64 yo M)Acc No.[id number]:04/24/2025 UNLOCKED PROGRESS NOTE Follow Up Patient: Alphonse CH Provider: Oh Shea DO :1960 A ge:64 Y S ex:Male Date:04/24/2025 Address:[address] [place] [address], [address], [place], [id number] Pcp:Kathie Sánchez CNP Subjective: * Chief Complaints: * 1 . 6 Mos F/U -COPD O2. * Medical History: Objective: * Vitals: Assessment: Plan: * Treatment: * * Electronic signature of Shireen Shea DO on 06/05/2025 at 08:36 AM EDT Sign off status: Pending Visit Status: R /S (Rescheduled) * Provider: Oh Shea, DO Date: 0 04/24/2025 Generated for Dot gerber/Jyoti/Yvan on: 0 06/05/2025 08:36 AM EDT
--- OUTSIDE RECORDS SUMMARY | 2025-04-25 06:30 | XMS_ITS ---
Author Organization The [facility] in [place] Address [address] [place] [address] Care Team Providers Care Stave Cutting Supervisor Name Role Phone Kathie Sánchez CNP Primary Care Provider Unavail Josué Busch Unavailable [phone] REASON FOR VISIT 6 Mos F/U -COPD O2 Encounters Encounter Location Date Provider Diagnosis Pulmonary Medicine [place] [address] [place] [address] 04/25/2025 Josué Shea Plan Of Treatment No Information Progress Notes * Alphonse RAJPUTDOB: [birth year] (64 yo M)Acc No.[id number]:04/25/2025 UNLOCKED PROGRESS NOTE Follow Up Patient: Alphonse CH Provider: Oh Shea DO :1960 A ge:64 Y S ex:Male Date:04/25/2025 Address:[address] [place] [address], [address], [facility] Pcp:Kathie Sánchez CNP Subjective: * Chief Complaints: * 1 . 6 Mos F/U -COPD O2. * Medical History: Objective: * Vitals: Assessment: Plan: * Treatment: * * Electronic signature of Shireen Shea DO on 06/05/2025 at 08:37 AM EDT Sign off status: Pending Visit Status: R /S (Rescheduled) * Provider: Oh Shea, DO Date: 0 04/25/2025 Generated for Dot gerber/Jyoti/Yvan on: 0 06/05/2025 08:37 AM EDT
--- OUTSIDE RECORDS SUMMARY | 2025-05-13 10:00 | XMS_ITS ---
Author Organization [facility] Address [address] [place] [address] Care Team Providers Care Online Trader Name Role Phone James Mart Unavailable [phone] Self, Referral Unavailable Unavailable REASON FOR VISIT RIGHT LEG PAIN Encounters Encounter Location Date Provider Diagnosis [facility] [facility] [address] [facility] [address] [place] [address] 05/13/2025 James Mart Plan Of Treatment Next Appt Details Provider Name:James Malik and, 07/17/2025 10:45:00 AM, [address] [facility] [address], [place], [address], Progress Notes * MATEO STEARNS WDOB:[birth year] (64 yo M)Acc No.[id number]:05/13/2025 Patient: MATEO CH Provider: Ruby Mart MD :1960 A ge:64 Y S ex:Male Date:05/13/2025 Address:[address] [place], [place] [id number] Subjective: * Chief Complaints: * 1 . RIGHT LEG PAIN. * Medical History: Objective: * Vitals: Assessment: Plan: * Treatment: Forms: * Images: * Electronic signature of Chris Mart MD on 06/05/2025 at 08:36 AM EDT Sign off status: Pending * Provider: Ruby Mart MD Date: 05/13/2025 Generated for Dot gerber/Jyoti/eTcharlysmitting on: 06/05/2025 08:36 AM EDT
--- OUTSIDE RECORDS SUMMARY | 2025-05-15 06:30 | XMS_ITS ---
Author Organization [facility] Address [address] [place] [address] Care Team Providers Care Iron Melter Name Role Phone James Mart Unavailable [phone] Self, Referral Unavailable Unavailable MarielAlyson Unavailable [phone] Allergies No Known Allergies REASON FOR VISIT RIGHT LEG PAIN Encounters Encounter Location Date Provider Diagnosis [place] [facility] [address] [facility] [address] [place] [address] [place] [address] 05/15/2025 Alyson Floyd Periprosthetic fract ure around internal prosthetic right hip joint, subsequent encounter M97.01XD Assessments Encounter Date Diagnosis (ICD Code) Assessment Notes Treatment Notes Treatment Clinical Notes Section Notes 05/15/2025 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, subsequent encounter (ICD-10 - M97.01XD) 05/15/2025 Other His fracture is healed however he is still having weakness from his underlying lack of strength from disuse. I recommended continuing with gait training and physical therapy and encouraged him to get up walking with the walker as much as possible throughout the day. We will follow-up with him in 2 months just to reassess his progress. Plan has been agreed upon by my supervising physician, Dr. Barron MD. Plan Of Treatment Treatment Notes Assessment Notes Other His fracture is healed however he is still having weakness from his underlying lack of strength from disuse. I recommended continuing with gait training and physical therapy and encouraged him to get up walking with the walker as much as possible throughout the day. We will follow-up with him in 2 months just to reassess his progress. Plan has been agreed upon by my supervising physician, Dr. Barron MD. Pending Test Test Name Order Date PT EVAL AND TREAT 05/15/2025 SCC- HIP W/ PELVIS, RIGHT [id number] 05/15/20 Next Appt Details Follow Up: 2 Months, Reason: Provider Name:James Malik and, 07/17/2025 10:45:00 AM, [address] [facility] , [place] [address], [place], [address], Progress Notes * MATEO STEARNS WDOB:[birth year] (64 yo M)Acc No.[id number]:05/15/2025 Patient: MATEO CH Provider: Halina Floyd CNP :1960 A ge:64 Y S ex:Male Date:05/15/2025 Address:[address] [place] [address] [address] Subjective: * Chief Complaints: * 1 . RIGHT LEG PAIN. * HPI: G eneral Info per Patient Report: Patient follows up today for recheck of his right subtrochanteric periprosthetic fracture. He has not had any pain. He is concerned that he is still having weakness in his legs. His COPD with oxygen therapy does limit the length of walking he does but he is able to walk about 70-80 feet with his walker. He doesn't get much exercise throughout the day since he is at an [facility]. Therapy has been inconsistent due to other health complications. * Medical History: A lcoholism: Yes, Cancer: Yes, Cancer Type: Prostate, COPD: : Yes, CPAP Machine:: No, Emphysema: Yes, Gout:: Yes, Healthcare worker: No, Heart condition:: Yes, Latex Allergy: No, Have you been in close contact with someone who has had MRSA within the last year?: No, Have you ever had or presently have MRSA?: No, Have you been seen by a dentist in the last year?: Yes, Do you have any dental problems i.e. Broken, loose, or chipped teeth, absess, gum disease?: No. * Family History: G randparents: Other. F ather: Lung Disease,Alcoholism. * Allergies: N .K.D.A. Objective: * Vitals: * Examination: G eneral examination: T he patient is a age-appropriate [], alert and oriented x3 and in no acute distress. Well-dressed and well-groomed. Stands with normal body position and in a calm mood. On examination today he has good strength with hip flexion and leg extension. No pain with hip rotation. . No lymphadenopathy. Skin is intact throughout the extremities with no open wounds or lesions. No masses appreciated. Palpable pulses distally and brisk capillary refill. Deep tendon reflexes are intact and symmetric. Intact sensation to light touch. No deformity on inspection. specific exam: x-ray imaging studies: X-ray of the right hip and pelvis taken today in clinic and interpreted me show healing of the subtrochanteric fracture with stable position of the prosthesis. specific exam: x-ray imaging studies: Assement:. Assessment: * Assessment: 1. P eriprosthetic fracture around internal prosthetic right hip joint, subsequent encounter - M97.01XD (Primary) Plan: * Treatment: 2. O thers Notes: His fracture is healed however he is still having weakness from his underlying lack of strength from disuse. I recommended continuing with gait training and physical therapy and encouraged him to get up walking with the walker as much as possible throughout the day. We will follow-up with him in 2 months just to reassess his progress. Plan has been agreed upon by my supervising physician, Dr. Barron MD. * Procedure Codes: 7 3502 X-RAY EXAM HIP UNI 2-3 VIEWS * Follow Up: 2 Months Forms: * Images: * Electronic signature of Alyson Floyd CNP on 06/05/2025 at 08:37 AM EDT Sign off status: Pending * Provider: Halina Floyd CNP Date: 05/15/2025 Generated for Dot gerber/Jyoti/Ismaelitting on: 0 06/05/2025 08:37 AM EDT History and Physical Notes * HPI (History of Present Illness) Category Sub-Category Detail Notes Category Not es General Info per Patient Report Patient follows up shaji dawkins for recheck of his right subtrochanteric periprosthetic fracture. He has not had any pain. He is concerned that he is still having weakness in his legs. His COPD with oxygen therapy does limit the length of walking he does but he is able to walk about 70-80 feet with his walker. He doesn't get much exercise throughout the day since he is at an [facility]. Therapy has been inconsistent due to other health complications. Examination Category Sub-Category Detail Notes Category Not es General examination The patient is a age-appropriate [], alert and oriented x3 and in no acute distress. Well-dressed and well-groomed. Stands with normal body position and in a calm mood. On examination today he has good strength with hip flexion and leg extension. No pain with hip rotation. . No lymphadenopathy. Skin is intact throughout the extremities with no open wounds or lesions. No masses appreciated. Palpable pulses distally and brisk capillary refill. Deep tendon reflexes are intact and symmetric. Intact sensation to light touch. No deformity on inspection. specific exam: x-ray imaging studies: X-ray of the right hip and pelvis taken today in clinic and interpreted me show healing of the subtrochanteric fracture with stable position of the prosthesis. specific exam: x-ray imaging studies: Assement:
--- OUTSIDE RECORDS SUMMARY | 2025-05-20 06:00 | XMS_ITS ---
Author Organization [facility] in [place] Address [address] [place] [address] Care Team Providers Care Lead Sprinkler Name Role Phone Kathie Sánchez CNP Primary Care Provider Unavail able Germainsa Josué Jean [phone] Allergies No Known Allergies REASON FOR VISIT 6 Mos F/U -COPD O2 Medications Medication SIG (Take, Route, Frequency, Duration) Notes Start Date End Date Status predniSONE 10 MG 1 tablet Orally QD for 30 days Take with food Not-Taking Sodium Chloride 0.9 % as directed Inhalation Active Pantoprazole Sodium 40 MG 1 tablet Orally Once a day Active Mucinex 600 MG 1 tablet as needed Orally every 12 hrs Active Benzonatate 200 MG 1 capsule PRN cough Orally TID for 30 days 01/10/2024 Active Aspirin 81 MG 1 tablet Orally Once a day Active Ibuprofen 800 MG 1 tablet with food or milk as needed Orally every 8 hrs Active dilTIAZem HCl ER 180 MG 1 tablet Orally Once a day Active Daliresp 500 MCG 1 tablet Orally QD for 90 days Active Spiriva Respimat 2.5 MCG/ACT 2 puffs Inhalation QD for 90 days Active Ventolin HFA 108 (90 Base) MCG/ACT 2 puffs as needed for SOB Inhalation Q4H for 90 days Active Budesonide-Formoterol Fumarate 160-4.5 MCG/ACT 2 puffs Inhalation BID for 90 days Rinse after use Rinse after use Active Daliresp 500 MCG 1 tablet Orally QD for 90 days Active Social History Tobacco Use: Social History Observation Description Date Details (start date - stop date) Former Smoker NA - NA Tobacco Control (Standard) Question Answer Notes Tobacco use: Former smoker How long has it been since y ou last smoked? Greater than 10 years Additional Findings: Tobacco non-user Ex -very heavy cigarette smoker (40+/day) Vital Signs Weight 130.0 lbs 05/20/2025 Height 69 in 05/20/2025 Blood pressure systolic 104 mm Hg 05/20/20 25 Blood pressure diastolic 50 mm Hg 025 Temperature 96.9 degrees Fahrenheit 05/20/20 25 Heart Rate 95 /min 05/20/2025 Respiratory Rate 18 /min 05/20/2025 BMI 19.2 kg/m2 05/20/2025 Oximetry 94 % 05/20/2025 Weight reported by patient Encounters Encounter Location Date Provider Diagnosis Pulmonary Medicine [place] [address] [place] [address] 05/20/2025 Josué Shea Chronic respiratory failure with hypoxia J96.11 ; Centrilobular emphysema J43.2 ; History of tobacco abuse Z87.891 ; Collapse of lung tissue J98.11 ; 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 He is actually wearing O2 today @ 3L/min and states he feels better wearing it. 05/20/2025 Centrilobular emphysema (ICD-10 - J43.2) Prior treatment: Symbicort + Spiriva, Dulera, Breo, Advair Seems to be experiencing an exacerbation of COPD, provoked post-op. New wheezes on examination. On triple inhaled therapy already. He would benefit from a prednisone taper (if okay to give with recent fracture). If he does not improve after that, consider CXR. No crackles or rhonchi on exam, does not appear acutely ill. F/U 6 months. 05/20/2025 History of tobacco abuse (ICD-10 - Z87.891) 2ppd x40 years, quit 11/2015 LDCT was due March 2025, but on hold d/t more recent issues. 05/20/2025 Collapse of lung tissue (ICD-10 - J98.11) Chronic RML collapse. 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 05/20/2025 History of pneumothorax (ICD-10 - Z87.09) Left spontaneous pneumothorax, s/p thoracostomy tube 201205/20/2025 Other Plan Of Treatment Medication Medication Name Sig Start Date Stop Date Notes Spiriva Respimat 2.5 MCG/ACT 2 puffs Inhalation QD for 90 days Ventolin HFA 108 (90 Base) MCG/ACT 2 puffs as needed for SOB Inhalation Q4H for 90 days Budesonide-Formoterol Fumarate 160-4.5 MCG/ACT 2 puffs Inhalation BID for 90 days Rinse after use Daliresp 500 MCG 1 tablet Orally QD f or 90 days Treatment Notes Assessment Notes Chronic respiratory failure with hypoxia Hgrq-cu-eweh encounter performed with the patient to document continued need for supplemental oxygen (O2). He is actually wearing O2 today @ 3L/min and states he feels better wearing it. Centrilobular emphysema Seems to be experiencing an exacerbation of COPD, provoked post-op. New wheezes on examination. On triple inhaled therapy already. He would benefit from a prednisone taper (if okay to give with recent fracture). If he does not improve after that, consider CXR. No crackles or rhonchi on exam, does not appear acutely ill. F/U 6 months. History of tobacco abuse LDCT was due March 2025, but on hold d/t more recent issues. Collapse of lung tissue Chronic RML collapse. assisted (current) use of i nhaled steroids Patient was counseled to rinse & gargle with water after inhaled corticosteroid use. Next Appt Details Follow Up: 6 Months, Reason: COPD Procedure Notes * Category Sub-Category Detail Notes PFT Data: 09/29/2020-FEV1/F VC: 37%-FEV1: 41%-FVC: 85%-Bronchodilator response: None-RV: 312%-T%-DLCO: 29%-Flow-volume loop: Very severe obstruction06/13/2017-FEV1/FVC: 40%-FEV1: 43%-FVC: 81%-LRK33-66%: 17%-Bronchodilator response: None-MVV: 43%-RV: 165%-T%-DLCO: 30% Alpha-1 Antitrypsin Screening Date: 07/03/2020 Genotype: M/M Progress Notes * Alphonse RAJPUTDOB: [birth year] (64 yo M)Acc No.[id number]:05/20/2025 Follow Up Patient: Alphonse CH Provider: Oh Shea DO :1960 A ge:64 Y S ex:Male Date:05/20/2025 Address:[address] [place], [place] [id number] Pcp:Kathie Sánchez SAFETY LEAD Check In:09:50 AM Timck O ut:10:34 AM EST Subjective: * Chief Complaints: * 6 Mos F/U -COPD O2 * HPI: G eneral: Updated patient history - he was doing fairly well up until ~01/13/2025. He was at his monther's where he tripped and fractured his right femur. He was at [facility] to recouperate. He is no longer non weight bearing, but he continues to have difficulty with ambulation and arrives here today in a wheelchair. He then was going to have an aortic aneurysm repair. Prior to that, he failed a stress test and subsequent cardiac catheterization noted LAD stenosis - he had 2 MIRANDA placed and is to be on lifelong Plavix & ASA. He developed PAF around this time, but this has since resolved. He underwent the percutaneous endovascular aorta repair ~04/30/2025, but it was unable to be completed d/t development of cartilage? He was intubated and on a ventilator for this procedure. After the procedure, he complains of worsening dyspnea and chest tightness. He denies any aspiration, hoarseness or dysphonia, or tracheal wheeze. He remains on Symbicort 160 and Spiriva, as well as DuoNeb. He does not feel they are helping as much as in the past. Kashmir edwards has no idea how long he is going to be at [facility]. MA Intake Comments:. Patient presents for a follow-up for COPD. Patient is currently on 3L O2. Patient is currently at the [facility] due recently falling and fracturing his femur. Patient is unable to walk at this time due to weakness. Patient complains of worsening SOB & Cough since his AAA repair on 04/30/2025. Patient is receiving Symbicort, Spiriva and his nebulizer at [facility]. Patient is under the care of [facility] Cardiology. * ROS: G eneral/Constitutional: Fever or sweats d enies. C hange of appetite d enies. C hills d enies. W eight Change d enies. H EENT: Dry mouth d enies. S ore throat d enies. O ral Ulcers d enies. P ost Nasal Drip D enies. C ongestion D enies. H oarseness?Denies. C ardiovascular: Tachycardia d enies. C hest pain d enies. P alpitations d enies. R espiratory: Chest tightness a dmits. P leurisy D enies. D yspnea a dmits. C ough p roductive. H emoptysis n one since treated for pneumonia. W heezing d enies. G astrointestinal: Acid Reflux/GERD/Heartburn d enies. D ysphagia d enies. M usculoskeletal: Arthralgias/joint pain r ight femur pain/weakness. S kin: Easy bruising d enies. R kalli d enies. ? N eurologic: Seizures d enies. T remor d enies. H ematology: Abnormal Bleeding d enies. P sychiatric: Anxiety d enies. 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 Modified On:02/07/2024 Status:confirmed J98.11 Collapse of lung tis danis Modified On:02/07/2024 Status:confirmed I10 Essential (primary) hypertension Modified On:02/03/2025 Status:confirmed J44.1 Chronic obstructive pulmonary disease with (acute) exacerbation Modified On:02/03/2025 Status:confirmed J31.0 Chronic rhinitis Modified On:02/19/2025 Status:confirmed R63.0 Anorexia Modified On:02/19/2025 Status:confirmed E46 Malnutrition Modified On:03/29/2025 Status:confirmed D72.829 Leukocytosis Modified On:03/29/2025 Status:confirmed * Medical History: * Surgical History: B ronchoscopy 03/28/2019left thoracostomy tube placement: secondary spontaneous pneumothorax 2012left hip replacement right hip replacement right foot surgery cyst removal-chest/face prostate biopsy ardiac Catheterization with stent placement 04/05/2025bdominal aortic aneurysm repair 04/30/2025 * Hospitalization/Major Diagno stic Procedure: F all-TBH 01/13/2025 * Family History: F ather: alcoholism, emphysema. M other: respiratory diseases, diagnosed with Unspecified heart disease. * Social History: T obacco Use: T obacco Control (Standard) T obacco use: F ormer smoker H ow long has it been since you last smoked??Greater than 10 years A dditional Findings: Tobacco non-user E x-very heavy cigarette smoker (40+/day) LM: Additional Tobacco Questions N umber of Years Pt Smoked: 4 0 ; Quit 2015 N umber of Packs per Day: 2 = 80 pack-years When did you stop smokin11/2015. M iscellaneous: C affeine: more than 4 cups per day. Ambulatory Assistance E quipment: W heelchair Occupation O ccupation: U nemployed Pets: none. D rugs/Alcohol: D rugs H ave you used drugs other than those for medical reasons in the past 12 months? N o D oes the Patient have a History of Drug Abuse in the Past? N o Caffeine I ntake: m ore than 4 cups per day Soda Do you drink alcohol?: No. Do you smoke marijuana?: Denies. * Medications: T akingAspirin 81 MG Tablet Delayed Release 1 tablet Orally Once a day Benzonatate 200 MG Capsule 1 capsule PRN cough Orally TID Budesonide-Formoterol Fumarate 160-4.5 MCG/ACT Aerosol 2 puffs Inhalation BID Rinse after use, Notes to Pharmacist: Rinse after useDaliresp(Roflumilast) 500 MCG Tablet 1 tablet Orally QD dilTIAZem HCl ER 180 MG Tablet Extended Release 24 Hour 1 tablet Orally Once a day Ibuprofen 800 MG Tablet 1 tablet with food or milk as needed Orally every 8 hrs Mucinex(guaiFENesin ER) 600 MG Tablet Extended Release 12 Hour 1 tablet as needed Orally every 12 hrs Pantoprazole Sodium 40 MG Tablet Delayed Release 1 tablet Orally Once a day Sodium Chloride 0.9 % Nebulization Solution as directed Inhalation Spiriva Respimat(Tiotropium [place] Monohydrate) 2.5 MCG/ACT Aerosol Solution 2 puffs Inhalation QD Ventolin HFA(Albuterol Sulfate HFA) 108 (90 Base) MCG/ACT Aerosol Solution 2 puffs as needed for SOB Inhalation Q4H Taking Aspirin 81 MG Tablet Delayed Release 1 tablet Orally Once a day Taking Benzonatate 200 MG Capsule 1 capsule PRN cough Orally TID Taking Budesonide-Formoterol Fumarate 160-4.5 MCG/ACT Aerosol 2 puffs Inhalation BID Rinse after use, Notes to Pharmacist: Rinse after useTaking Daliresp(Roflumilast) 500 MCG Tablet 1 tablet Orally QD Taking dilTIAZem HCl ER 180 MG Tablet Extended Release 24 Hour 1 tablet Orally Once a day Taking Ibuprofen 800 MG Tablet 1 tablet with food or milk as needed Orally every 8 hrs Taking Mucinex(guaiFENesin ER) 600 MG Tablet Extended Release 12 Hour 1 tablet as needed Orally every 12 hrs Taking Pantoprazole Sodium 40 MG Tablet Delayed Release 1 tablet Orally Once a day Taking Sodium Chloride 0.9 % Nebulization Solution as directed Inhalation Taking Spiriva Respimat(Tiotropium [place] Monohydrate) 2.5 MCG/ACT Aerosol Solution 2 puffs Inhalation QD Taking Ventolin HFA(Albuterol Sulfate HFA) 108 (90 Base) MCG/ACT Aerosol Solution 2 puffs as needed for SOB Inhalation Q4H Not-Taking/PRNpredniSONE 10 MG Tablet 1 tablet Orally QD Take with foodNot- Taking/PRN predniSONE 10 MG Tablet 1 tablet Orally QD Take with foodDiscontinuedArexvy(RSVPreF3 Vac Recomb Adjuvanted) 120 MCG/0.5ML Suspension Reconstituted as directed Intramuscular once Prevnar 20(Pneumococcal 20-Poppy Conj Vacc) 0.5 ML Suspension Prefilled Syringe as directed Intramuscular once Medication List reviewed and reconciled with the patientDiscontinued Arexvy(RSVPreF3 Vac Recomb Adjuvanted) 120 MCG/0.5ML Suspension Reconstituted as directed Intramuscular once Discontinued Prevnar 20(Pneumococcal 20-Poppy Conj Vacc) 0.5 ML Suspension Prefilled Syringe as directed Intramuscular once Medication List reviewed and reconciled with the patient * Allergies: N .K.D.A.no[Allergies Verified] Objective: * Vitals: W t:130.0lbs, Ht: 69 in, BP:sittin/50mm Hg, Temp:Forehead:96.9F, HR:95/min, RR:18/min, BMI:19.2Index, Oxygen sat %:Oxygen 3l:94%, Ht-cm: 175.26 cm, Wt-k.97 kg. Weight reported by patient. * Examination: E xam: GENERAL APPEARANCE: A ppears stated age. Skin D usky appearance. Mouth P ink and moist. No candidiasis. Oropharynx/Tongue M allampati Class II. Trachea M idline. Chest I ncreased A-P Diameter. Respiratory H ypertympanic to percussion. Auscultation P reviously clear. Now diminished with mildly diffuse expiratory wheezes. No dullness to percussion. No decreased or increased tactile fremitus. Cardiac R egular rate and rhythm. Gastrointestinal N ormal. Vascular N o edema. Musculoskeletal I n wheelchair. Neurological F ocal, intact. Psychiatric A lert and oriented x3. Mentation/Cognition N ormal. Assessment: * Assessment: 1. C entrilobular emphysema - J43.2 (Primary) N otes :Prior treatment: Symbicort + Spiriva, Dulera, Breo, Advair 2 . C hronic respiratory failure with hypoxia - J96.11 3 .?History of tobacco abuse - Z87.891 N otes :2ppd x40 years, quit 11/2015 4 . C ollapse of lung tissue - J98.11 5 . A zygos lobe of lung - Q33.1 6 . L tianna term (current) use of inhaled steroids - Z79.51 ? 7 . H istory of pneumothorax - Z87.09 N otes :Left spontaneous pneumothorax, s/p thoracostomy tube 2012 Plan: * Treatment: 2. C hronic respiratory failure with hypoxia Notes: Qlje-xd-ewnk encounter performed with the patient to document continued need for supplemental oxygen (O2). He is actually wearing O2 today @ 3L/min and states he feels better wearing it. 3. H istory of tobacco abuse Notes: LDCT was due March 2025, but on hold d/t more recent issues. 4. C ollapse of lung tissue Notes: Chronic RML collapse. 5. L tianna term (current) use of inhaled steroids Notes: Patient was counseled to rinse & gargle with water after inhaled corticosteroid use. ? * Procedures: A lpha-1 Antitrypsin: Screening Date: 0 07/03/2020. Genotype: M /M. P FT: Data: 09/29/2020 -FEV1/FVC: 37% -FEV1: 41% -FVC: 85% -Bronchodilator response: None -RV: 312% -T% -DLCO: 29% -Flow-volume loop: Very severe obstruction 06/13/2017 -FEV1/FVC: 40% -FEV1: 43% -FVC: 81% -QSR84-00%: 17% -Bronchodilator response: None -MVV: 43% -RV: 165% -T% -DLCO: 30%. * Procedure Codes: * Preventive Medicine: COVID Vaccination: H as patient had COVID Vaccination? COVID Vaccination Y es 09/21/2024 Immunization Status: P neumovacc P revnar 20-08/17/2024. I nfluenza P t Refused. Z ostivax 1 . B oostrix 0 03/11/2021. Screenings/Counseling: F ALL RISK SCREENING Fall Risk Assessment: N o falls in the past year Are you afraid of falling? Y es T OBACCO ACTION PLAN Patient counselled on the dangers of tobacco use and urged to quit. 0 05/20/2025 Former Education on smoking effects provided?05/20/2025 Former F YADY EXCLUSION Reason: P atient Reason refused/declined Type of Patient Reason: D rug declined by patient B OR ACTION PLAN Below Normal BMI Follow-up D ietary education for weight gain R SV-08/17/2024. * Follow Up: 6 Months (Reason: COPD) * * Sign off status: Completed Visit Status: C HK (Check Out) true * Provider: Oh Shea DO Date: 0 05/20/2025 Generated for Dot gerber/Jyoti/Ismaelitting on: 0 06/05/2025 08:36 AM EDT History and Physical Notes * HPI (History of Present Illness) Category Sub-Category Detail Notes Category Not es General Patient present s for a follow-up for COPD. Patient is currently on 3L O2. Patient is currently at the [facility] due recently falling and fracturing his femur. Patient is unable to walk at this time due to weakness. Patient complains of worsening SOB & Cough since his AAA repair on 04/30/2025. Patient is receiving Symbicort, Spiriva and his nebulizer at the [facility]. Patient is under the care of [facility] Cardiology. Examination Category Sub-Category Detail Notes Category Not es Exam GENERAL APPEARANCE: Appears stated age Skin Dusky appearance Mouth Lawrence and moist. No c andidiasis Trachea Midline Chest Increased A-P Diamet er Ribs Sternum Scar Supraclavicular (Virchow) node Respiratory Hypertympanic to per cussion Auscultation Previously clear. No w diminished with mildly diffuse expiratory wheezes. No dullness to percussion. No decreased or increased tactile fremitus Percussion Egophony Bronchophony Fremitus Whispered pectoriloquy Cardiac Regular rate and rhy thm Gastrointestinal Normal Vascular No edema Musculoskeletal In wheelchair Neurological Focal, intact Psychiatric Alert and oriented x 3 Mentation/Cognition Normal Oropharynx/Tongue Mallampati Class II
--- OUTSIDE RECORDS SUMMARY | 2025-05-27 10:59 | XMS_ITS | Encounter Summary ---
Author Organization [employer] tem Address [id number] [address] [place] [address] Care Team Providers Care Fighting Vehicle Infantryman Name Role Phone Curt De Dios MD Primary Care Provider [phone] Reason for Referral * Diagnostic Imaging (Routine) - Closed Specialty Diagnoses / Procedures Referred By Contac t Referred To Contact Radiology Diagnoses Penetrating atherosclerotic ulcer of aorta Procedures CT angiogram chest Sadie Piper MD [address], [address] [address] Phone: tel: fax: Referral ID Status Reason Start Date Expiration Date Visits Re quested Visits Authorized [id number] Closed 04/03/2025 04/03/2026 1 1 * Diagnostic Imaging (Routine) - Closed Specialty Diagnoses / Procedures Referred By Contac t Referred To Contact Radiology Diagnoses Penetrating atherosclerotic ulcer of aorta Procedures CT angiogram abdomen and pelvis Sadie Piper MD [address], [address] [address] Phone: tel: fax: Referral ID Status Reason Start Date Expiration Date Visits Re quested Visits Authorized [id number] Closed 04/03/2025 04/03/2026 1 1 Reason for Visit * Diagnostic Imaging (Routine) - Closed Specialty Diagnoses / Procedures Referred By Contac t Referred To Contact Radiology Diagnoses Penetrating atherosclerotic ulcer of aorta Procedures CT angiogram chest Sadie Piper MD [address], [address] [address] Phone: tel: fax: Referral ID Status Reason Start Date Expiration Date Visits Re quested Visits Authorized [id number] Closed 04/03/2025 04/03/2026 1 1 Encounter Details Date Type Department Care Team (Latest Contact Info) Description 05/27/2025 10:59 AM EDT - 05/27/2025 11:59 PM EDT Hospital Encounter [facility] - CT Imaging [address] [place] [address] Sadie Piper MD [address], [address] [address] Penetrating atherosclerotic ulcer of aorta Discharge Disposition: Home Social History Tobacco Use Types Packs/Day Years Used Date Smoking Tobacco: Former Cigarettes Smokeless Tobacco: Never Alcohol Use Standard Drinks/Week Comments No 0 (1 standard drink = 0.6 oz pure alcohol) quit drinking 2 years ago; august 2015 [facility] Utilities Answer Date Recorded In the past 12 months has [employer], gas, oil, or water [employer] threatened to shut off services in your [...] progress towards goal: safe transition back to [facility] for long-term care services. documented as [...] 05/29/2025 9:30 AM us Sadie Piper MD [facility] [place] [facility] CT ORDERABLES Final Resul t * CT [...] documented as of this encounter Care Teams Fighting Vehicle Infantryman Relationship Specialty Start Date End Date Curt De Dios MD [address] [facility] [place] [address] PCP - General Family Medicine 05/27/25 documented as of this encounter
--- OUTSIDE RECORDS SUMMARY | 2025-05-30 10:00 | XMS_ITS | Encounter Summary ---
Author Organization [employer] [facility] tem Address [facility] [id number] [address] [place] [address] Care Team Providers Care Program Production Specialist Name Role Phone Teo Lowry MD Primary Care Provider [phone] Reason for Visit * Reason Comments tevar 04-09-25 testing done in [place] angiogram chest 6/ Encounter Details Date Type Department Care Team (Latest Contact Info) Description 05/30/2025 10:00 AM EDT [facility] [place] [address] [place] [address] Sadie Piper MD [address], [address] [address] Penetrating atherosclerotic ulcer of aorta (Primary Dx); Aneurysm of descending thoracic aorta without rupture Social History Tobacco Use Types Packs/Day Years Used Date Smoking Tobacco: Former Cigarettes Smokeless Tobacco: Never Alcohol Use Standard Drinks/Week Comments No 0 (1 standard drink = 0.6 oz pure alcohol) quit drinking 2 years ago; august 2015 [facility] Utilities Answer Date Recorded In the past 12 months has [employer], gas, oil, or water [employer] threatened to shut off services in your [...] on file documented as of this encounter Last Filed Vital Signs Vital Sign Reading Time Taken Comments Blood Pressure 141/70 05/30/2025 10:19 AM EDT Pulse 81 05/30/2025 10:19 AM EDT Temperature - - Respiratory Rate - - Oxygen Saturation - - Inhaled Oxygen Concentration - - Weight 59 kg (130 lb) 05/30/2025 10:19 AM EDT Height 170.2 cm (5' 7 ) 05/30/2025 10:19 AM EDT Body Mass Index 20.36 05/30/2025 10:19 AM EDT documented in this encounter Progress Notes * Sadie Piper MD - 05/30/2025 10:00 AM EDT Images from the original note were not included. To: TEO LOWRY MD HPI: Alphonse Rajput is a 64 y.o. male with large penetrating aortic ulcer in the outer curve just distal to the subclavian. We tried now via and [employer] device with the device would not track. The TEVAR was aborted at that time. I sent his information to both [facility] and [facility] and we will attempt to do TEVAR using a different device with different mechanics hopefully it would track. I discussed with the patient that he has PICU needs to be addressed however because of the complexities of thecalcium in the anatomy some devices may not work. There was no way to confirm for sure before trying to get the device up in the right place. He understands. Procedure risks benefits and alternativeswere explained.. Review of Systems: Review of Systems Constitutional: Negative. HENT: Negative. Respiratory: Negative. Cardiovascular: Negative. Gastrointestinal: Negative. Endocrine: Negative. Genitourinary: Negative. Musculoskeletal: Negative. Skin: Negative. Neurological: Negative. Hematological: Negative. Medications: Current Outpatient Medications on File Prior to Visit Medication Sig Dispense Refill albuterol (PROVENTIL HFA;VENTOLIN HFA) 90 mcg/actuation inhaler Inhale 2 puffs every 6 (six) hours as needed for wheezing Indications: chronic obstructive pulmonary disease. albuterol (PROVENTIL,VENTOLIN) 2.5 mg /3 mL (0.083 %) nebulizer solution Inhale 3 mL (2.5 mg total)by nebulization every 6 (six) hours as needed for wheezing Indications: chronic obstructive pulmonary disease. apixaban (ELIQUIS) 2.5 mg tablet Take 1 tablet (2.5 mg total) by mouth in the morning and 1 tablet (2.5 mg total) before bedtime. afib. aspirin 81 mg Take 1 tablet (81 mg total) by mouth in the morning. A fib. 3 atorvastatin (LIPITOR) 40 mg tablet Take 1 tablet (40 mg total) by mouth before bedtime. Indications: excessive fat in the blood. budesonide-formoteroL (SYMBICORT) 160-4.5 mcg/actuation inhaler Inhale 2 puffs in the morning and 2puffs before bedtime. Respiratory failure. busPIRone (BUSPAR) 10 mg tablet Take 1 tablet (10 mg total) by mouth 3 (three) times a day Indications: repeated episodes of anxiety. calcium carbonate-vitamin D3 (OSCAL 500 + D) 500 mg (1,250 mg) - 200 units per tablet Take 1 tabletby mouth in the morning and 1 tablet in the evening. Take with meals. supplement. cycloSPORINE (RESTASIS) 0.05 % ophthalmic emulsion Administer 1 drop to both eyes every 12 (twelve)hours. Tear production diltiazem XR (DILACOR XR) 180 MG 24 hr capsule Take 1 capsule (180 mg total) by mouth in the morning. Indications: high blood pressure. fluticasone propionate (FLONASE) 50 mcg/actuation nasal spray Administer 1 spray into each nostril in the morning. Indications: inflammation of the nose due to an allergy. guaiFENesin (MUCINEX) 600 mg tablet extended release 12hr Take 1 tablet (600 mg total) by mouth every 12 (twelve) hours. copd melatonin 5 mg tablet,chewable Chew 2 tablets and swallow nightly. sleep metoclopramide (REGLAN) 10 mg tablet Take 1 tablet (10 mg total) by mouth in the morning and 1 tablet (10 mg total) at noon and 1 tablet (10 mg total) before bedtime. metoprolol succinate XL (TOPROL XL) 50 mg 24 hr tablet Take 1 tablet (50 mg total) by mouth in the morning. Indications: high blood pressure. ondansetron (ZOFRAN) 4 mg tablet Take 1 tablet (4 mg total) by mouth every 8 (eight) hours as needed for nausea or vomiting. nausea pantoprazole (PROTONIX) 40 mg EC tablet Take 1 tablet (40 mg total) by mouth in the morning. Indications: gastroesophageal reflux disease. 2 REMERON 15 mg tablet Take 2 tablets (30 mg total) by mouth nightly Indications: major depressive disorder. ROFLUMILAST ORAL Take 500 mcg by mouth in the morning. COPD. traZODone (DESYREL) 50 mg tablet Take 1 tablet (50 mg total) by mouth nightly Indications: insomniaassociated with depression. clopidogreL (PLAVIX) 75 mg tablet Take 1 tablet (75 mg total) by mouth in the morning. afib. docusate sodium (COLACE) 100 mg capsule Take 1 capsule (100 mg total) by mouth in the morning and 1capsule (100 mg total) before bedtime. Indications: constipation. (Patient not taking: Reported on 05/30/2025) ipratropium-albuteroL (DUONEB) 0.5 mg-3 mg(2.5 mg base)/3 mL nebulizer Inhale 3 mL by nebulization 4 (four) times a day Indications: bronchi muscle spasm resulting from COPD. oxyCODONE-acetaminophen (PERCOCET) 5-325 mg per tablet Take 1 tablet by mouth every 4 (four) hours as needed for pain Indications: pain. Max Daily Amount: 6 tablets (Patient not taking: Reported on 05/30/2025) No current facility-administered medications on file prior to visit. Past Medical History: Past Medical History: Diagnosis Date Abdominal aortic aneurysm (AAA) without rupture Acute and chronic respiratory failure with hypoxia ([facility]) Anemia Anxiety Arthritis Atrial fibrillation ([facility]) Chronic respiratory failure ([facility]) Cognitive communication deficit Colitis COPD (chronic obstructive pulmonary disease) ([facility]) Depression Dysphagia, oropharyngeal phase Emphysema of lung ([facility]) Fracture of unspecified part of neck of unspecified femur, subsequent encounter for closed fracturewith routine healing Hypertension Insomnia disorder Muscle weakness Pneumonia Unspecified protein-calorie malnutrition Visual impairment glasses Past Surgical History: Past Surgical History: Procedure Laterality Date CARPAL TUNNEL RELEASE Left FOOT FUSION Right shattered heel JOINT REPLACEMENT right hip REPLACEMENT TOTAL JOINT HIP Left 11/15/2017 Performed by Jr Sylvain Rosenbaum DO at [facility] THORACIC ARTERIOGRAM WITH IVUS N/A 04/30/2025 Performed by Sadie Piper MD at [facility] Social and Family History: Social History Socioeconomic History Marital status: Spouse name: Not on file Number of children: Not on file Years of education: Not on file Highest education level: Not on file Occupational History Not on file Tobacco Use Smoking status: Former Types: Cigarettes Smokeless tobacco: Never Substance and Sexual Activity Alcohol use: No Comment: quit drinking 2 years ago; august 2015 Drug use: No Sexual activity: Never Other Topics Concern Not on file Social History Narrative Not on file Social Drivers of Health Financial Resource Strain: Low Risk (04/05/2025) Received from [facility] Overall Financial Resource Strain (CARDIA) Difficulty of Paying Living Expenses: Not very hard Food Insecurity: No Food Insecurity (05/01/2025) Hunger Screening Food Insecurity - Worry: Never True Food Insecurity - Inability: Never True Transportation Needs: No Transportation Needs (05/01/2025) PRAPARE - Transportation Lack of Transportation (Medical): No Lack of Transportation (Non-Medical): No Physical Activity: Inactive (02/28/2024) Received from [facility] Exercise Vital Sign Days of Exercise per Week: 0 days Minutes of Exercise per Session: 0 min Stress: No Stress Concern Present (02/28/2024) Received from [facility] of Occupational Health - Occupational Stress Questionnaire Feeling of Stress : Only a little Social Connections: Moderately Isolated (02/28/2024) Received from [facility] Social Connection and Isolation Panel [NHANES] Frequency of Communication with Friends and Family: Three times a week Frequency of Social Gatherings with Friends and Family: Never Attends Alevism Services: Never Active Member of Clubs or Organizations: Yes Attends Club or Organization Meetings: Never Marital Status: Interpersonal Safety: Patient Declined (05/01/2025) Humiliation, Afraid, Rape, and Kick questionnaire Fear of Current or Ex-Partner: Patient declined Emotionally Abused: Patient declined Physically Abused: Patient declined Sexually Abused: Patient declined Housing Instability: Low Risk (05/01/2025) Housing Instability Housing Instability: No Family History Problem Relation Age of Onset Heart disease Mother COPD Father Heart disease Father Recent Labs: Recent and relative labs were reviewed and interpreted and contributed to the assessment and plan below. Vitals: BP 141/70 (BP Site: Right Arm, BP Postition: Sitting, BP CUFF SIZE: M (9-13 inches)) Pulse 81 Ht 170.2 cm (5' 7 ) Wt 59 kg (130 lb) BMI 20.36 kg/m?? Body mass index is 20.36 kg/m??. Physical Exam: Physical Exam Constitutional: Appearance: Normal appearance. HENT: Head: Normocephalic and atraumatic. Mouth/Throat: Mouth: Mucous membranes are moist. Eyes: Extraocular Movements: Extraocular movements intact. Pupils: Pupils are equal, round, and reactive to light. Cardiovascular: Rate and Rhythm: Normal rate and regular rhythm. Pulmonary: Effort: Pulmonary effort is normal. Breath sounds: Normal breath sounds. Abdominal: General: Abdomen is flat. Bowel sounds are normal. Palpations: Abdomen is soft. Musculoskeletal: General: Normal range of motion. Cervical back: Normal range of motion. Skin: General: Skin is warm and dry. Neurological: General: No focal deficit present. Mental Status: He is alert and oriented to person, place, and time. Mental status is at baseline. Psychiatric: Mood and Affect: Mood normal. Behavior: Behavior normal. Thought Content: Thought content normal. Judgment: Judgment normal. Recent testing: CTA chest abdomen and pelvis Assessment and Plan: Problem List Penetrating atherosclerotic ulcer of aorta - Primary Current Assessment & Plan We will try to do TEVAR using a different device. Thoracic aortic aneurysm Alphonse was seen today for tevar 04-09-25 testing done in [place] angiogram chest Diagnoses and all orders for this visit: Penetrating atherosclerotic ulcer of aorta Aneurysm of descending thoracic aorta without rupture Sadie Piper MD, CELSO, RPVI, FSVS, FACS [facility] This note was created with the assistance of a speech recognition program. While intending to generate a timely document that accurately reflects the content of the visit, no guarantee can be provided that every grammatical or spelling mistake has been or will be identified or corrected. Thank you for your understanding. documented in this encounter Miscellaneous Notes * Assessment & Plan Note - Sadie Piper MD - 05/30/2025 10:35 AM EDT Associated Problem(s): Penetrating atherosclerotic ulcer of aorta We will try to do TEVAR using a different device. documented in this encounter Plan of Treatment Not on file documented as of this encounter Goals Goal Patient Goal Type Associated Problems Recent Progress Patient-Stated? Author Safe Discharge General Yes Linda Bhat, CARIDAD Note: Evaluation of progress towards goal: safe transition back to [facility] for long-term care services. documented as of this encounter Visit Diagnoses Diagnosis Penetrating atherosclerotic ulcer of aorta- Primary Aneurysm of descending thoracic aorta without rupture documented in this encounter Additional Health Concerns Assessment Noted Time PHQ-9 Depression Total Score: 1 05/01/20 25 10:30 AM EDT documented as of this encounter Care Teams Program Production Specialist Relationship Specialty Start Date End Date Teo Lowry MD [address] [place] [address] PCP - General Family Medicine 05/27/25 documented as of this encounter
--- OUTSIDE RECORDS SUMMARY | 2025-06-05 08:36 | XMS_ITS | Clinical Summary ---
Author Organization [employer] tem Address [id number] [address] [place] [address] Care Team Providers Care Layout Artist Name Role Phone Curt De Dios MD Primary Care Provider [phone] Allergies No known active allergies Medications albuterol (PROVENTIL HFA;VENTOLIN HFA) 90 mcg/actuation inhalerIndicatio ns:chronic obstructive pulmonary disease Inhale 2 puffs every 6 (six) hours as needed for wheezing Indications: chronic obstructive pulmonary disease. Active diltiazem XR (DILACOR XR) 180 MG 24 hr capsuleIndicatio ns:hypertension Take 1 capsule (180 mg total) by mouth in the morning. Indications: high blood pressure. Active aspirin 81 mg Take 1 tablet (81 mg total) by mouth in the morning. A fib. 3 05/21/20 19 Active pantoprazole (PROTONIX) 40 mg EC tabletIndication s:gastroesophage al reflux disease Take 1 tablet (40 mg total) by mouth in the morning. Indications: gastroesophageal reflux disease. 2 05/30/20 19 Active docusate sodium (COLACE) 100 mg capsuleIndicatio ns:constipation Take 1 capsule (100 mg total) by mouth in the morning and 1 capsule (100 mg total) before bedtime. Indications: constipation. 03/04/20 25 Active cycloSPORINE (RESTASIS) 0.05 % ophthalmic emulsion Administer 1 drop to both eyes every 12 (twelve) hours. Tear production 05/14/20 24 Active metoclopramide (REGLAN) 10 mg tablet Take 1 tablet (10 mg total) by mouth in the morning and 1 tablet (10 mg total) at noon and 1 tablet (10 mg total) before bedtime. 02/23/20 25 Active REMERON 15 mg tabletIndication s:major depressive disorder Take 2 tablets (30 mg total) by mouth nightly Indications: major depressive disorder. 03/06/20 25 Active ROFLUMILAST ORAL Take 500 mcg by mouth in the morning. COPD. Active melatonin 5 mg tablet,chewable Chew 2 tablets and swallow nightly. sleep Active budesonide-formo teroL (SYMBICORT) 160-4.5 mcg/actuation inhaler Inhale 2 puffs in the morning and 2 puffs before bedtime. Respiratory failure. Active ondansetron (ZOFRAN) 4 mg tablet Take 1 tablet (4 mg total) by mouth every 8 (eight) hours as needed for nausea or vomiting. nausea Active traZODone (DESYREL) 50 mg tabletIndication s:insomnia associated with depression Take 1 tablet (50 mg total) by mouth nightly Indications: insomnia associated with depression. Active albuterol (PROVENTIL,FOREST GOPI) 2.5 mg /3 mL (0.083 %) nebulizer solutionIndicati ons:chronic obstructive pulmonary disease Inhale 3 mL (2.5 mg total) by nebulization every 6 (six) hours as needed for wheezing Indications: chronic obstructive pulmonary disease. Active ipratropium-albu teroL (DUONEB) 0.5 mg-3 mg(2.5 mg base)/3 mL nebulizerIndicat ions:chronic obstructive pulmonary disease with bronchospasms Inhale 3 mL by nebulization 4 (four) times a day Indications: bronchi muscle spasm resulting from COPD. Active busPIRone (BUSPAR) 10 mg tabletIndication s:generalized anxiety disorder Take 1 tablet (10 mg total) by mouth 3 (three) times a day Indications: repeated episodes of anxiety. Active atorvastatin (LIPITOR) 40 mg tabletIndication s:hyperlipidemia Take 1 tablet (40 mg total) by mouth before bedtime. Indications: excessive fat in the blood. Active clopidogreL (PLAVIX) 75 mg tablet Take 1 tablet (75 mg total) by mouth in the morning. afib. Active apixaban (ELIQUIS) 2.5 mg tablet Take 1 tablet (2.5 mg total) by mouth in the morning and 1 tablet (2.5 mg total) before bedtime. afib. Active fluticasone propionate (FLONASE) 50 mcg/actuation nasal sprayIndications :allergic rhinitis Administer 1 spray into each nostril in the morning. Indications: inflammation of the nose due to an allergy. Active oxyCODONE-acetam inophen (PERCOCET) 5-325 mg per tabletIndication s:pain Take 1 tablet by mouth every 4 (four) hours as needed for pain Indications: pain. Max Daily Amount: 6 tablets Active metoprolol succinate XL (TOPROL XL) 50 mg 24 hr tabletIndication s:hypertension Take 1 tablet (50 mg total) by mouth in the morning. Indications: high blood pressure. Active guaiFENesin (MUCINEX) 600 mg tablet extended release 12hr Take 1 tablet (600 mg total) by mouth every 12 (twelve) hours. copd Active calcium carbonate-vitami n D3 (OSCAL 500 + D) 500 mg (1,250 mg) - 200 units per tablet Take 1 tablet by mouth in the morning and 1 tablet in the evening. Take with meals. supplement. Active HYDROcodone-acet aminophen (NORCO) 5-325 mg per tablet Take 1 tablet by mouth every 4 (four) hours as needed. 12/05/19 25 2024 Active Problems Problem Noted Date Diagnosed Date Thoracic aortic aneurysm 04/30/2025 Penetrating atherosclerotic ulcer of aorta 03/07 Assessment & Plan (05/30/2025 10:35 AM EDT): We will try to do TEVAR using a different device. Assessment & Plan (03/07/2025 11:59 AM EDT): He has 2 ulcers small 1 in the visceral segment in the abdomen and 1 in the thoracic aorta just distal to the subclavian. The thoracic ulcer is large. I discussed with him endovascular repair. Discussed risk of stroke and spinal cord ischemia. Discussed alternatives risk benefits of each. We will plan on TEVAR with cardiac risk stratification first Primary osteoarthritis of left hip 11/14/2017 Encounters Date Type Department Care Team Description 05/30/2025 10:00 AM EDT Office Visit [facility] [address] [place] [address] Sadie Piper MD Penetrating atherosclerotic ulcer of aorta (Primary Dx); Aneurysm of descending thoracic aorta without rupture 05/27/2025 10:59 AM EDT - 05/27/2025 11:59 PM EDT Hospital Encounter [facility] - CT Imaging [address] [place] [address] Sadie Piper MD Penetrating atherosclerotic ulcer of aorta Discharge Disposition: Home 05/27/2025 Travel 04/30/2025 11:56 AM EDT Anesthesia Event [facility] - Surgery [address] [place] [address]. [place] [address] Randell Sawant MD 04/30/2025 11:30 AM EDT - 04/30/2025 2:15 PM EDT Surgery [facility] - Surgery [address] [place] [address]. [place] [address] Sadie Piper MD THORACIC ARTERIOGRAM WITH IVUS 04/30/2025 8:53 AM EDT - 05/01/2025 2:36 PM EDT Hospital Encounter [facility] - [facility] [address] Acute [address] [place] [phone] Sadie Piper MD Discharge Disposition: Fdc Facility-Medicare Cert 04/30/2025 Travel 04/17/2025 Documentation [facility] [address] [place] [address] Indigo Mishra RN 04/17/2025 Travel 04/16/2025 8:00 AM EDT Support Visit [facility] On [address] [address] 04/03/2025 Orders Only [facility] [address] [place] [address] Shantelle Morales Penetrating atherosclerotic ulcer of aorta (Primary Dx) 03/27/2025 Travel 03/26/2025 8:30 AM EDT Support Visit [facility] [address] [place] [address] 03/07/2025 11:10 AM EDT Office Visit [facility] [address] [place] [address] Sadie Piper MD Penetrating atherosclerotic ulcer of aorta (Primary Dx) 03/07/2025 Travel from Last 3 Months Immunizations Immunization Administration Dates Next Due Pneumococcal Conjugate 20-valent 08/17/2024 RSV, recombinant, protein gay bunit RSVpreF, adjuvant reconstituted, 0.5 mL, PF 08/17/2024 Tdap 03/11/2021 Unknown Vaccine Or Immune Globulin 03/20,09/21/2024,08/17/2024,2022,07/04/2023,09/25/2022,05/26/2021,0 05/05/2021,03/11/2021 Zoster Vaccine Recombinant 09/17/2023,07/04/2023 Family History Medical History Relation Name Comments COPD Father Heart disease Father Heart disease Mother Relation Name Status Comments Father Mother Alive Social History Tobacco Use Types Packs/Day Years Used Date Smoking Tobacco: Former Cigarettes Smokeless Tobacco: Never Tobacco Cessation:Counseling Given: Not Answered Alcohol Use Standard Drinks/Week Comments No 0 (1 standard drink = 0.6 oz pure alcohol) quit drinking 2 years ago; august 2015 [facility] [employer] Answer Date Recorded In the past 12 months has [employer], [employer], oil, or water [employer] threatened to shut off services in your [...] on file Sexual Orientation Not on file Last Filed Vital Signs Vital Sign Reading Time Taken Comments Blood Pressure 141/70 05/30/2025 10:19 AM EDT Pulse 81 05/30/2025 10:19 AM EDT Temperature 36.5 C (97.7 F) 05/01/2025 11:15 AM EDT Respiratory Rate 18 05/01/2025 1:41 PM EDT Oxygen Saturation 95% 05/01/2025 1:41 PM EDT Inhaled Oxygen Concentration - - Weight 59 kg (130 lb) 05/30/2025 10:19 AM EDT Height 170.2 cm (5' 7 ) 05/30/2025 10:19 AM EDT Body Mass Index 20.36 05/30/2025 10:19 AM EDT Plan of Treatment Health Maintenance Due Date Last Done Comments Abdominal Aortic Aneurysm (A AA) Screen 2023 Fall Risk Screening 2023 COVID-19 Vaccine (2023-12 5 season) 2025 09/21/2024, 09/25/2022, 05/26/2021, Additional history exists Influenza Vaccine 07/29/2025 Depression Screening 05/01/2026 05/01/2025 Tobacco Screening 05/27/2026 05/27/2025 Adult BMI Screening 05/30/2026 05/30/2025 Colonoscopy 10/15/2030 10/15/2020, 07/04/2019 DTaP,Tdap and Td Vaccines (2 - Td or Tdap) 03/11/2031 03/11/2021 Zoster (Shingles) Vaccine Completed 09/17/2023, 05/2023 Goals Goal Patient Goal Type Associated Problems Recent Progress Patient-Stated? Author Safe Discharge General Yes Linda Bhat, RN Note: Evaluation of progress towards goal: safe transition back to [facility] for long-term care services. Medical Devices Implanted Type Area Equipment Validation Engineer Device Identifier Shelf Expiration Date Model / Serial / Lot Cup Actb 50mm Pncl Sect Pinn Sector W/Gription 50mm - Sn/A - [id number] Implanted:Qty : 1 on 11/15/2017 by Sylvain Rosenbaum Jr., DO at [facility] Orthopedic Implant Left: Hip DEPUY 08/27/2027 [id number] / N/A / [id number] Stm Fem 160mm 14 Crl Amt Ti Koehler Corail Amt Collar Size 14 - Sn/A - [id number] Implanted:Qty : 1 on 11/15/2017 by Sylvain Rosenbaum Jr., DO at [facility] Orthopedic Implant Left: Hip DEPUY 05/27/2022 [id number] / N/A / [id number] Ins Actb 50mm 32mm +4mm Ntrl Altrx +4 Neut [id number] - Sn/A - [id number] Implanted:Qty : 1 on 11/15/2017 by Sylvain Rosenbaum Jr., DO at [facility] Orthopedic Implant Left: Hip DEPUY 08/27/2022 [id number] / N/A / [id number] Hip Dep Pf Spcl Mtl Construct - [id number] Implanted:Qty : 1 on 11/15/2017 by Sylvain Rosenbaum Jr., DO at [facility] Orthopedic Implant Left: Hip DEPUY DEP-17 / / Elmntr Hl Drlc Pncl Hip Mrthn [place] Positive Stop - Sn/A - [id number] Implanted:Qty : 1 on 11/15/2017 by Sylvain Rosenbaum Jr., DO at [facility] Other Implant Left: Hip DEPUY 05/27/2025 [id number] / N/A / [id number] Hd Fem 32mm 32 +5mm Std Articul/Brandon Ball 32 +5 Br - Sn/A - [id number] Implanted:Qty : 1 on 11/15/2017 by Sylvain Rosenbaum Jr., DO at [facility] Other Implant Left: Hip DEPUY 08/27/2022 [id number] / N/A / [id number] Scr Hip Canc Cnn Gription 25mm Pinn Can Bone Screw [id number] - Sn/A - [id number] Implanted:Qty : 1 on 11/15/2017 by Sylvain Rosenbaum Jr., DO at [facility] Screw Left: Hip DEPUY 09/27/2027 [id number] / N/A / [id number] Procedures Procedure Name Priority Date/Time Associated Diagnosis Comments CT CTA CHEST Routine 05/28/2025 2:22 PM EDT Penetrating atherosclerotic ulcer of aorta CT CTA ABD AND PELVIS Routine 05/28/2025 2:22 PM EDT Penetrating atherosclerotic ulcer of aorta CBC WITH AUTO DIFFERENTIAL Routine 05/01/2025 3:50 AM EDT BASIC METABOLIC PANEL Routine 05/01/2025 3:50 AM EDT REPEATED ABORH Routine 04/30/2025 5:12 PM EDT CBC WITH AUTO DIFFERENTIAL Routine 04/30/2025 5:11 PM EDT IONIZED MAGNESIUM Routine 04/30/2025 5:1 1 PM EDT BASIC METABOLIC PANEL Routine 04/30/2025 5:11 PM EDT FL TRACK VASCULAR OPERATIVE Routine 04/30/2025 1:38 PM EDT POCT ABG RAPID K GLU ICA HH Routine 04/30/2025 12:22 PM EDT SD ANES ART LINE Routine 04/30/2025 12:17 PM EDT SD AN ELECTIVE ENDOTRACHEAL AIRWAY Routine 04/30/2025 12:11 PM EDT ENDOGRAFT BYPASS THORACIC AORTA 04/30/2025 11:56 AM EDT Penetrating atherosclerotic ulcer of aorta Case Notes SHANTELLE REQ 45W/ 90W PER ILANA 04/11 per MS, 135W, 165T (CMF) [facility] [phone] GENERAL - [place] SPINAL APRIL[employer] Special Needs [facility] [phone] APRIL[employer] REPEATED ABORH Routine 04/30/2025 9:57 AM EDT TYPE AND SCREEN STAT 04/30/2025 9:57 AM EDT HM COLONOSCOPY Routine 07/04/2019 8:35 AM EDT from Last 3 Months or Most Recently Relevant to Health Maintenance Results * CT angiogram chest (05/28/2025 2:22 [...] 05/29/2025 9:30 AM us Sadie Piper MD IM CT ORDERABLES Final Resul t * (ABNORMAL) CBC auto differential (05/01/2025 3:50 AM EDT) Only the most recent of2 resultswithin the time period is included. WBC 8.1 4 - 11 x10E9/L 05/01/2025 4:43 AM EDT [facility] RBC Count 3.80(L) 4.1 - 5.7 X10E12/L 05/01/2025 4:43 AM EDT [facility] Hemoglobin 10.7(L) 13 - 17 g/dL 05/01/2025 4:43 AM EDT [facility] Hematocrit 31.5(L) 39 - 50 % 05/01/2025 4:43 AM EDT [facility] MCV 83 80 - 100 fL 05/01/2025 4:43 AM EDT [facility] MCH 28.2 27 - 34 pg 05/01/2025 4:43 AM EDT [facility] MCHC 34.0 32 - 36 g/dL 05/01/2025 4:43 AM EDT [facility] RDW 15.9(H) 11.5 - 15 % 05/01/2025 4:43 AM EDT [facility] Platelet Count 218 150 - 450 X10E9/L 05/01/2025 4:43 AM EDT [facility] MPV 7.4 7 - 12 fL 05/01/2025 4:43 AM EDT [facility] Neutrophils % 77.2 % 05/01/2025 4:43 AM EDT [facility] Lymphocytes % 15.3 % 05/01/2025 4:43 AM EDT [facility] Monocytes % 7.2 % 05/01/2025 4:43 AM EDT [facility] Eosinophils % 0.0 % 05/01/2025 4:43 AM EDT [facility] Basophils % 0.3 % 05/01/2025 4:43 AM EDT [facility] Neutrophils Absolute (A) 6.3 1.5 - 6.6 10*3/uL 05/01/2025 4:43 AM EDT [facility] Lymphocytes Absolute 1.2 1.0 - 3.5 10*3/uL 05/01/2025 4:43 AM EDT [facility] Monocytes Absolute 0.6 0.0 - 0.9 10*3/uL 05/01/2025 4:43 AM EDT [facility] Eosinophils Absolute 0.0 0.0 - 0.4 10*3/uL 05/01/2025 4:43 AM EDT [facility] Basophils Absolute 0.0 0.0 - 0.2 10*3/uL 05/01/2025 4:43 AM EDT [facility] Differential Type AUTOMATED DIFFERENTIAL 05/01/2025 4:43 AM EDT [facility] Blood Venous blood / Unknown 05/01/2025 3:50 AM EDT 05/01/2025 3:50 AM EDT us Malia Gil MD LAB BLOOD ORDERABLES Final R esult [facility] [address] [place] [address], * (ABNORMAL) Basic Metabolic Panel (05/01/2025 3:50 AM EDT) Only the most recent of2 resultswithin the time period is included. SODIUM 138 134 - 146 mmol/L 05/01/2025 5:08 AM EDT [facility] POTASSIUM 4.1 3.5 - 5.0 mmol/L 05/01/2025 5:08 AM EDT [facility] CHLORIDE 101 98 - 109 mmol/L 05/01/2025 5:08 AM EDT [facility] CARBON DIOXIDE 29 22 - 32 mmol/L 05/01/2025 5:08 AM EDT [facility] ANION GAP 8 5 - 15 mmol/L 05/01/2025 5:08 AM EDT [facility] BLOOD UREA NITROGEN 22 5 - 27 mg/dL 05/01/2025 5:08 AM EDT [facility] CREATININE 0.66 0.60 - 1.30 mg/dL 05/01/2025 5:08 AM EDT [facility] Comment:METHOD TRACEABLE TO IDMS STANDARD GLUCOSE 145(H) 65 - 99 mg/dL 05/01/2025 5:08 AM EDT [facility] CALCIUM 8.9 8.5 - 10.5 mg/dL 05/01/2025 5:08 AM EDT [facility] EGFR Non-Race Dependent >90 >=60 ml/min/1.7 3sq.m 05/01/2025 5:08 AM EDT [facility] Comment: Reported eGFR is based on the CKD-EPI 2020 equation that does not use a race coefficient. Blood Venous blood / Unknown 05/01/2025 3:50 AM EDT 05/01/2025 3:50 AM EDT Malia Gil MD LAB BLOOD ORDERABLES Final R esult [facility] [address] [place] [address], * ABO Rh Repeat (04/30/2025 5:12 PM EDT) Only the most recent of2 resultswithin the time period is included. ABO O 04/30/2025 11:53 PM EDT [facility] RH Positive 04/30/2025 11:53 PM EDT [facility] Blood Venous blood / Unknown 04/30/2025 5:12 PM EDT 04/30/2025 5:12 PM EDT Sadie Piper MD BLOOD BANK TEST ORDERABLES Fi nal Result Performing Organization Address City/[facility]/ZIP Co de Phone Number [facility] [place] [address] [place] [address], [facility] [address] [place] [address], * (ABNORMAL) Ionized magnesium (04/30/2025 5:11 PM EDT) IONIZED MAGNESIUM 0.33(L) 0.45 - 0.74 mmol/L 04/30/2025 5:37 PM EDT [facility] Blood Venous blood / Unknown 04/30/2025 5:11 PM EDT 04/30/2025 5:11 PM EDT Malia Gil MD LAB BLOOD ORDERABLES Final R esult Performing Organization Address City/[facility]/ZIP Co de Phone Number [facility] [address] [place] [address], * Fluoroscopy track vascular operative (04/30/2025 1:38 PM EDT) Narrative SYSTEMGENERATED, DOCUMENTATION - 04/30/2025 1:39 PM EDT Please refer to the vascular OP note for a dictation on this exam. Sadie Piper MD IMG FLUOROSCOPY ORDERABLES Fi nal Result * (ABNORMAL) POCT ABG Rapid K GLU ICA HH (04/30/2025 12:22 PM EDT) POC Potassium 4.3 3.5 - 5.0 mmol/L 04/30/2025 12:25 PM EDT [facility] POC Glucose 121(H) 65 - 99 mg/dL 04/30/2025 12:25 PM EDT [facility] POC HGB 11.4(L) 13.0 - 17.0 g/dL 04/30/2025 12:25 PM EDT [facility] POC Hematocrit 35(L) 39 - 49 % 04/30/2025 12:25 PM EDT [facility] POC Ionized Calcium 4.7 4.5 - 5.3 mg/dL 04/30/2025 12:25 PM EDT [facility] Sample type Arterial 04/30/2025 12:25 PM EDT [facility] Body Temp 37.00 >=37 C 04/30/2025 12:25 PM EDT [facility] pH, Arterial 7.457(H) 7.350 - 7.450 04/30/2025 12:25 PM EDT [facility] pCO2, Arterial 38.1 35.0 - 45.0 mmHg 04/30/2025 12:25 PM EDT [facility] PO2, Arterial 254(H) 80 - 100 mmHg 04/30/2025 12:25 PM EDT [facility] Base, Excess 3.0(H) 0.0 - 2.0 mmol/L 04/30/2025 12:25 PM EDT [facility] HCO3, Arterial 26.9(H) 22.0 - 26.0 mmol/L 04/30/2025 12:25 PM EDT [facility] %O2 Saturation, Arterial 100.3 >90.0 % 04/30/2025 12:25 PM EDT [facility] Memo's test NA 04/30/2025 12:25 PM EDT [facility] Sample site A LINE 04/30/2025 12:25 PM EDT [facility] Insp. O2 conc. 100.0 % 04/30/2025 12:25 PM T [facility] Arterial site (attribute) (Blood, Arterial) 04/30/2025 12:22 PM EDT 04/30/2025 12:25 PM EDT us Sadie Piper MD POINT OF CARE TEST ORDERABLES Final Result [facility] [address] [place] [address], [place] * SD ANES ART LINE (04/30/2025 12:17 PM EDT) Narrative Antwon Llanos SRNA - 04/30/2025 12:17 PM EDT SACHIN Mcmillan 04/30/2025 12:17 PM Art Line Performed by: SACHIN Mcmillan Authorized by: Randell Sawant MD Patient Location: OR Start Time: 04/30/2025 12:14 PM Service Provider: Randell Sawant MD WOOL DYER ( if not the service provider): STELLA Mariee Placed By: SACHIN Mcmillan Complete checklist: Patient Identified, IV Checked, Risks and Benefits Discussed, Surgical Consent, Monitors and Equipment Checked, Pre-op Evaluation and Timeout Performed Fire Risk Assessment Score: 0 Site Prep: Chlorhexadine and Isopropyl Alcohol and Maximum Sterile Barriers Used Hand Hygiene Performed Prior to Insertion: Yes Site Prep Agent has Completely Dried Before Insertion: Yes Local Anesthetic: Injectable Patient Prep Prior to AL Insertion: General Anesthesia Size: 20 G Total Catheter Length (inches): 1 4 Location: Radial Orientation: Right Securement Method: Transparent Dressing, Steri-Stips and Taped Specimen Obtained: Yes Placement Technique: Anatomical Landmarks and Guidewire Insertion Attempts: 1 Patient Tolerance: Tolerated Well no arterial injury us Randell Sawant MD SD ANESTHESIA Final Result * SD AN ELECTIVE ENDOTRACHEAL AIRWAY (04/30/2025 12:11 PM EDT) Antwon Velásquez SRNA - 04/30/2025 12:11 PM EDT SACHIN Mcmillan 04/30/2025 12:16 PM Airway Patient location during procedure: OR Urgency: Elective Date/Time: 04/30/2025 12:11 PM Airway not difficult IV In Situ: Peripheral General Information and Staff Service Provider: Randell Sawant MD WOOL DYER: STELLA Mariee Student: SACHIN Mcmillan Placed by: STELLA Mariee Patient Identified, IV Checked, Risks and Benefits Discussed, Surgical Consent, Monitors and Equipment Checked, Pre-op Evaluation and Timeout Performed Fire Risk Assessment Score: 0 Consent for Emergent Airway (if performed for an anesthetic, see related documentation for consents) Risks and benefits: risks, benefits and alternatives were discussed Indications and Patient Condition Sedation level: Deep Preoxygenated: yesPatient position: Supine and Sniffing MILS maintained throughout Mask difficulty assessment: Vent By Mask Indications for airway management: Anesthesia and Airway Protection Complications: No Complicating Factors: No Final Airway Details Final airway type: ETT Endotracheal airway: Cuffed, ETT - Single Lumen, Inflated and Pre-Curved Techniques used for successful ETT Placement: Direct Laryngoscopy and With Stylet Cormack-Lehane Classification: Grade I Endotracheal tube insertion site: Oral No Bite Block Placed Dentition Check Pre: Dentures/Partials Removed and See Pre-Evaluaton documentation Post Intubation Trauma? No Visibility: Cords Clear Blade: Eil Blade size: #3 Placement verified by: chest auscultation, capnography and symmetrical chest wall movement ETT size: 8.0 mm Measured from: Lips Secured at (cm): 23 Randell Sawant MD ANESTHESIA ORDERABLES Final Res ult * Type and screen (Pre-op) (04/30/2025 9:57 AM EDT) ABO O 04/30/2025 11:03 AM EDT [facility] RH Positive 04/30/2025 11:03 AM EDT [facility] Antibody Screen Negative 04/30/2025 11:03 AM EDT [facility] Blood Venous blood / Unknown 04/30/2025 9:57 AM EDT 04/30/2025 9:57 AM EDT Sadie Piper MD BLOOD BANK TEST ORDERABLES Ed ited Result - Final [facility] [address] [place] [address], [facility] [address] [place] [address], from Last 3 Months Insurance MEDICAID [place] [employer] MEDICARE Care Teams Layout Artist Relationship Specialty Start Date End Date Curt De Dios MD [address] [place] [id number] PCP - General Family Medicine 05/27/25
--- OUTSIDE RECORDS SUMMARY | 2025-06-05 08:36 | XMS_ITS | Encounter Summary ---
Author Organization [employer] Address [id number] [address] [place] [address] Care Team Providers Care Home Care Aide Name Role Phone Curt De Dios MD Primary Care Provider [phone] Reason for Referral * Specialty Diagnoses / Procedures Referred By Contac t Referred To Contact Vascular Surgery JESSICA OLSEN TOWER [address] [place] [address] Phone: tel: fax: Referral ID Status Reason Start Date Expiration Date Visits Re quested Visits Authorized Encounter Details Date Type Department Care Team (Late st Contact Info) Description 02/22/2025 Orders Only [facility] [address] [place] [address] Spencer Rose MD [address] [place] [address] Social History Tobacco Use Types Packs/Day Years Used Date Smoking Tobacco: Former Cigarettes Smokeless Tobacco: Never Alcohol Use Standard Drinks/Week Comments No 0 (1 standard drink = 0.6 oz pure alcohol) quit drinking 2 years ago; august 2015 Childcare Answer Date Recorded Childcare Unknown 05/10/2019 Employment Answer Date Recorded Employment Unknown 05/10/2019 Purpose - Life Answer Date Recorded Purpose and direction in life Unknown Sex and Gender Information Value Date Recorded Sex Assigned at Not on file Legal Sex Male 8:50 AM EDT Gender Identity Not on file Sexual Orientation Not on file documented as of this encounter Plan of Treatment Not on file documented as of this encounter Procedures Procedure Name Priority Date/Time Associated Diagnosis Comments AMB REFERRAL TO VASCULAR SURGERY Routine 02/15/2025 9:38 AM EDT documented in this encounter Results * Ambulatory referral to Vascular Surgery (02/15/2025 9:38 AM EDT) us Spencer Rose MD OUTPATIENT REFERRAL ORDERABLE S Final Result MANUALLY TRANSCRIBED RESULTS documented in this encounter Visit Diagnoses Not on filedocumented in this encounter Care Teams Home Care Aide Relationship Specialty Start Date End Date Curt De Dios MD [address] [place] [address] PCP - General Family Medicine 05/27/25 documented as of this encounter
--- OUTSIDE RECORDS SUMMARY | 2025-06-05 08:36 | XMS_ITS | Patient Health Record ---
Author Organization [facility] Address [address] [place] [address] [place] [address] Care Team Providers Care Geospatial Intelligence Analyst Name Role Phone Supriya, Jessicamorro Primary Care Provider Pa White Unavailable [phone] Reason For Referral No Information Encounters Encounter Location Date Provider Diagnosis [facility] [address] [place] [address] 03/20/2025 Pa Rose Plan Of Treatment No Information Insurance Providers Payer Name Payer Address Payer Phone Subscriber Number Group Number Insured Name Patient Relationship to Insured Coverage Start Date Coverage End Date [employer] and [employer] Shield [address] [place] [address] [id number] Alphonse Rajput Self - patient is the insured Medicaid [place] [employer] [address] [place] [address] [id number] Alphonse Rajput Self - patient is the insured
--- OUTSIDE RECORDS SUMMARY | 2025-06-05 08:36 | XMS_ITS | Encounter Summary ---
Author Organization [facility] tem Address [id number] [address] [place] [address] Care Team Providers Care Studio Sales Associate Name Role Phone Curt De Dios MD Primary Care Provider [phone] Encounter Details Date Type Department Care Team (Late st Contact Info) Description 04/17/2025 Documentation [facility] On [address] [address] Indigo Mishra RN Social History Tobacco Use Types Packs/Day Years [...] got money to buy more. Never True 03/07/2025 Within the past 12 months th e food we bought just didn't last and we didn't have money to get more. Never True 03/07/2025 Purpose - Life Answer Date Recorded Purpose and direction in life Unknown Sex and Gender Information Value Date Recorded Sex Assigned at Not on file Legal Sex Male 8:50 AM EDT Gender Identity Not on file Sexual Orientation Not on file documented as of this encounter Miscellaneous Notes * Perioperative Nursing Note - Indigo Mishra RN - 04/17/2025 3:58 PM EDT Faxed PAT instructions to [facility] [phone] documented in this encounter Plan of Treatment Not on file documented as of this encounter Visit Diagnoses Not on filedocumented in this encounter Care Teams Studio Sales Associate Relationship Specialty Start Date End Date Curt De Dios MD [address] [place] [address] PCP - General Family Medicine 05/27/25 documented as of this encounter
--- OUTSIDE RECORDS SUMMARY | 2025-06-05 08:36 | XMS_ITS | Encounter Summary ---
Author Organization [employer] Address [id number] [address] [place] [address] Care Team Providers Care Laundry Room Attendant Name Role Phone Curt De Dios MD Primary Care Provider [phone] Encounter Details Date Type Department Care Team (Latest Contact Info) Description 05/27/2025 Travel Social History Tobacco Use Types Packs/Day Years Used Date Smoking Tobacco: Former Cigarettes Smokeless Tobacco: Never Alcohol Use Standard Drinks/Week Comments No 0 (1 standard drink = 0.6 oz pure alcohol) quit drinking 2 years ago; august 2015 [facility] Utilities Answer Date Recorded In the past 12 months has th [employer], gas, oil, or water [employer] threatened to shut off services in your [...] Diagnoses Not on filedocumented in this encounter Additional Health Concerns Assessment Noted Time PHQ-9 Depression Total Score: 1 05/01/20 25 10:30 AM EDT documented as of this encounter Care Teams Laundry Room Attendant Relationship Specialty Start Date End Date Curt De Dios MD [address] [place] [address] PCP - General Family Medicine 05/27/25 documented as of this encounter
--- OUTSIDE RECORDS SUMMARY | 2025-06-05 08:37 | XMS_ITS | Encounter Summary ---
Author Organization [facility] Address [address] [place] [address] Care Team Providers Care Design Engineering Technician Name Role Phone Kathie Sánchez NP Unavailable [phone] Curt De Dios MD Primary Care Provider [phone] Kathie Sánchez NP Unavailable [phone] Debra Woods LPN Unavailable Unavailable Curt De Dios MD Primary Care Provider [phone] Kathie Sánchez NP Unavailable [phone] Lissa Garza MA Unavailable [phone] Andrade Pendleton OD Unavailable Encounter Details Date Type Department Care Team (Late st Contact Info) Description 11/13/2023 Abstract [facility] [address] [place] [address] Kathie Sánchez NP [address] [place] [address] Social History Tobacco Use Types Packs/Day Years Used Date Smoking Tobacco: Former Cigarettes 2 40 0 11/1975 - 11/2015 Tobacco Cessation:Counseling Given: Not Answered Alcohol Use Standard Drinks/Week Comments Not Currently 0 (1 standard drink = 0.6 oz pur e alcohol) Sex and Gender Information Value Date Recorded Sex Assigned at Not on file Legal Sex Male 7:47 PM EDT Gender Identity Not on file Sexual Orientation Not on file documented as of this encounter Plan of Treatment Not on file documented as of this encounter Visit Diagnoses Not on filedocumented in this encounter Care Teams Design Engineering Technician Relationship Specialty Start Date End Date Curt De Dios MD [address] [place] [address] PCP - General Family Medicine 11/11/23 02/27/24 Kathie Sánchez NP [address] [place] [address] PCP - Crow LAFLEUR 12/29/23 Curt De Dios MD [address] [place] [address] PCP - General Family Medicine 02/28/24 05/01/25 Kathie Sánchez NP [address] [place] [address] Nurse Practitioner Family Medicine 10/03/23 Debra Woods LPN Registered Nurse Family Medicine 02/28/24 02/29/24 Kathie Sánchez NP [address] [place] [address] Nurse Practitioner Family Medicine 02/28/24 Lissa Garza MA [address] [place] [address] Family Medicine 12/05/24 03/06/25 Andrade Pendleton OD [address] [place] [address] Referring Physician Optometry 01/02/25 documented as of this encounter
--- OUTSIDE RECORDS SUMMARY | 2025-06-05 08:37 | XMS_ITS | Encounter Summary ---
Author Organization [facility] Address [address] [place] [address] Care Team Providers Care Gravity Prospecting Observer Name Role Phone Kathie Sánchez HYDRAULIC BARKER OPERATOR Unavailable [phone] Kathie Sánchez HYDRAULIC BARKER OPERATOR Unavailable [phone] Curt De Dios MD Primary Care Provider Kathie Sánchez NP Unavailable [phone] Lissa Garza MA Unavailable [phone] Andrade Pendleton OD Unavailable Encounter Details Date Type Department Care Team (Late st Contact Info) Description 02/25/2025 Orders Only [facility] [address] [place] [address] James Mart MD [address] [place] [address] [place] [address] Social History Tobacco Use Types Packs/Day Years Used Date Smoking Tobacco: Former Cigarettes 2 40 0 11/1975 - 11/2015 Alcohol Use Standard Drinks/Week Comments Not Currently 0 (1 standard drink = 0.6 oz pur e alcohol) Humiliation, Afraid, Rape, and Kick questionnair e Answer Date Recorded Within the last year, have y ou been afraid of your partner or ex-partner? No 02/28/2024 Within the last year, have y ou been humiliated or emotionally abused in other ways by your partner or ex-partner? No Within the last year, have y ou been kicked, hit, slapped, or otherwise physically hurt by your partner or ex-partner? No 02/28/2024 Within the last year, have y ou been raped or forced to have any kind of sexual activity by your partner or ex-partner? No 02/28/2024 Social Connection and Isolation Panel [NHANES] A nswer Date Recorded In a typical week, how many times do you talk on the phone with family, friends, or neighbors? Three times a week 02/28/2024 How often do you get togethe r with friends or relatives? Never 02/28/2024 How often do you attend chur ch or judaism services? Never 02/28/2024 Do you belong to any clubs o r organizations such as samaritan groups, unions, fraternal or athletic groups, or school groups? Yes 02/28/2024 How often do you attend meet ings of the clubs or organizations you belong to? Never 02/28/2024 Are you , , di vorced, , never , or living with a partner? 02/28/2024 AUDIT-C Answer Date Recorded Q1: How often do you have a drink containing alcohol? Never 02/28/2024 Q2: How many drinks containi ng alcohol do you have on a typical day when you are drinking? Patient does not drink Q3: How often do you have si x or more drinks on one occasion? Never 02/28/2024 Overall Financial Resource Strain (CARDIA) Answe r Date Recorded How hard is it for you to pa y for the very basics like food, housing, medical care, and heating? Not very hard 02/28/2024 PHQ-2 Answer Date Recorded Patient Health Questionnaire-2 Score 0 02/28/2024 [facility] - Occupational Stress Questionnaire Answer Date Recorded Do you feel stress - tense, restless, nervous, or anxious, or unable to sleep at night because your mind is troubled all the time - these days? Only a little 02/28/2024 Exercise Vital Sign Answer Date Recorde d On average, how many days pe r week do you engage in moderate to strenuous exercise (like a brisk walk)? 0 days 02/28/2024 On average, how many minutes do you engage in exercise at this level? 0 min 02/28/2024 Hunger Vital Sign Answer Date Recorded Within the past 12 months, y ou worried that your food would run out before you got the money to buy more. Never true 02/28/20 Within the past 12 months, t he food you bought just didn't last and you didn't have money to get more. Never true 02/28/2024 PRAPARE - Transportation Answer Date Re corded In the past 12 months, has l ack of transportation kept you from medical appointments or from getting medications? No 12/2023 In the past 12 months, has l ack of transportation kept you from meetings, work, or from getting things needed for daily living? No 02/28/2024 Housing Stability Vital Sign Answer Thony e Recorded In the last 12 months, was t here a time when you were not able to pay the mortgage or rent on time? No 02/28/2024 In the last 12 months, how many places have you lived? 1 02/28/2024 In the last 12 months, was t here a time when you did not have a steady place to sleep or slept in a skilled nursing (including now)? No 02/28/2024 Sex and Gender Information Value Date Recorded Sex Assigned at Not on file Legal Sex Male 7:47 PM EDT Gender Identity Not on file Sexual Orientation Not on file documented as of this encounter Plan of Treatment Not on file documented as of this encounter Procedures Procedure Name Priority Date/Time Associated Diagnosis Comments XR HIP 2 OR 3 VW RIGHT Routine 02/25/2025 1:29 PM EDT documented in this encounter Results * XR hip right 2 or 3 views (02/25/2025 1:29 PM EDT) Anatomical Region Laterality Modality Lower Extremities, Hip Right Radiograp hic Imaging us James Mart MD IMG XR PROCEDURES Final Res ult documented in this encounter Visit Diagnoses Not on filedocumented in this encounter Additional Health Concerns Assessment Noted Time PHQ-9 Depression Total Score: 2 02/28/20 24 10:39 AM EDT A fall risk assessment has been complete d for the patient 02/28/2024 10:39 AM EDT documented as of this encounter Care Teams Gravity Prospecting Observer Relationship Specialty Start Date End Date Kathie Sánchez NP [address] [place] [address] PCP - Crow LAFLEUR 12/29/23 Curt De Dios MD [address] [place] [address] PCP - General Family Medicine 02/28/24 05/01/25 Kathie Sánchez NP [address] [place] [address] Nurse Practitioner Family Medicine 10/03/23 Kathie Sánchez NP [address] [place] [address] Nurse Practitioner Family Medicine 02/28/24 Lissa Garza MA [address] [place] [address] Family Medicine 12/05/24 03/06/25 Andrade Pendleton OD [address] [place] [address] Referring Physician Optometry 01/02/25 documented as of this encounter
--- OUTSIDE RECORDS SUMMARY | 2025-06-05 08:37 | XMS_ITS | Encounter Summary ---
Author Organization [facility] Address [address] [place] [address] Care Team Providers Care Filter Tank Tender Name Role Phone Kathie Sánchez NP Unavailable [phone] Curt De Dios MD Primary Care Provider [phone] Kathie Sánchez NP Unavailable [phone] Debra Woods LPN Unavailable Unavailable Curt De Dios MD Primary Care Provider [phone] Kathie Sánchez NP Unavailable [phone] Lissa Garza MA Unavailable [phone] Andrade Pendleton OD Unavailable Encounter Details Date Type Department Care Team (Late st Contact Info) Description 01/18/2024 Orders Only [facility] [address] [place] [address] Kathie Sánchez NP [address] [place] [address] Social History Tobacco Use Types Packs/Day Years [...] Procedure Name Priority Date/Time Associated Diagnosis Comments ELECTROCARDIOGRAM REPORT Routine 2:21 PM EST documented in this encounter Results * Electrocardiogram Report (01/05/2024 2:21 PM EST) Kathie Sánchez TOWER LOADER OPERATOR IN CLINIC/BEDSIDE ORDERABLES Fi nal Result documented in this encounter Visit Diagnoses Not on filedocumented in this encounter Care Teams Filter Tank Tender Relationship Specialty Start Date End Date Curt De Dios MD [address] [place] [address] PCP - General Family Medicine 11/11/23 02/27/24 Kathie Sánchez NP [address] [place] [address] PCP - Crow LAFLEUR 12/29/23 Curt De Dios MD [address] [place] [address] PCP - General Family Medicine 02/28/24 05/01/25 Kathie Sánchez NP [address] [place] [address] Nurse Practitioner Family Medicine 10/03/23 Debra Woods LPN Registered Nurse Family Medicine 02/28/24 02/29/24 Kathie Sánchez NP [address] [place] [address] Nurse Practitioner Family Medicine 02/28/24 Lissa Garza, MIQUEL [address] [place] [address] Family Medicine 12/05/24 03/06/25 Andrade Pendleton OD [address] [place] [address] Referring Physician Optometry 01/02/25 documented as of this encounter
--- OUTSIDE RECORDS SUMMARY | 2025-06-05 08:37 | XMS_ITS | Clinical Summary ---
Author Organization [facility] Address [address] [place] [address] Care Team Providers Care Settlement Technician Name Role Phone Curt De Dios MD Primary Care Provider [phone] Allergies No known active allergies Medications albuterol 2.5 mg /3 mL (0.083 %) nebulizer solution 2.5 mg every 4 (four) hours if needed. 5 Active budesonide-formote roL (Symbicort) 160-4.5 mcg/actuation inhaler Inhale 2 puffs twice a day. Active calcium carbonate-vitamin D3 (Os-Pamela 500 + D3) 500 mg-5 mcg (200 unit) tablet Take 1 tablet by mouth twice a day. 9 Active guaiFENesin (Mucinex) 600 mg 12 hr tablet Take 1,200 mg by mouth two times daily. Active HYDROcodone-acetam inophen (Donaldson) 5-325 mg tablet Take 1 tablet by mouth every 4 (four) hours if needed. 5 Active Remeron 15 mg tablet Take 15 mg by mouth in the morning. 5 Active pantoprazole (ProtoNix) 40 mg EC tablet Take 40 mg by mouth in the morning. 9 Active roflumilast (Daliresp) 500 mcg tablet Take 500 mcg by mouth in the morning. 9 Active apixaban (Eliquis) 2.5 mg tabletIndications: Coronary artery disease Take 1 tablet (2.5 mg) by mouth two times daily for 198 doses. 60 tablet 3 5 025 Active atorvastatin (Lipitor) 40 mg tabletIndications: Coronary artery disease Take 1 tablet (40 mg) by mouth at bedtime for 99 doses. 30 tablet 3 5 025 Active clopidogrel (Plavix) 75 mg tabletIndications: Coronary artery disease Take 1 tablet (75 mg) by mouth in the morning for 98 doses. 30 tablet 3 5 025 Active metoprolol succinate XL (Toprol-XL) 50 mg 24 hr tabletIndications: Coronary artery disease Take 1 tablet (50 mg) by mouth in the morning for 98 doses. Do not crush or chew. Do not start before April 07, 2025. 30 tablet 3 5 025 Active aspirin 81 mg EC tabletIndications: Coronary artery disease Take 1 tablet (81 mg) by mouth in the morning for 99 doses. 30 tablet 3 5 025 Active dilTIAZem XR (Dilacor XR) 180 mg 24 hr capsule Take 180 mg by mouth in the morning. 5 Active busPIRone (Buspar) 10 mg tablet Take 10 mg by mouth two times daily. 5 Active fluticasone (Flonase) 50 mcg/actuation nasal spray Administer 1 spray into affected nostril(s) in the morning. 5 Active ondansetron ODT (Zofran-ODT) 4 mg disintegrating tablet Take 4 mg by mouth every 8 (eight) hours if needed. 5 Active metoclopramide (Reglan) 10 mg tablet Take 10 mg by mouth 3 times a day. 5 Active Spiriva Respimat 2.5 mcg/actuation inhaler Inhale 2 puffs in the morning. 5 Active traZODone (Desyrel) 50 mg tablet Take 50 mg by mouth at bedtime. 5 Active Active Problems Problem Noted Date Diagnosed Date Fall (on) (from) other stairs and steps, initial encounter 05/08/2025 Fracture of bone adjacent to prosthesis 06/11/20 25 Coronary artery disease (CAD) excluded Coronary artery disease 04/05/2025 Assessment & Plan (04/05/2025 1:02 PM EDT): As above Abnormal stress test 04/02/2025 Assessment & Plan (04/05/2025 1:02 PM EDT): Status post left heart cath with drug-eluting stents telemetry dual antiplatelet meds pain control follow-up with cardiology Arthritis 03/15/2025 Lobular atelectasis 03/15/2025 Sebaceous cyst 03/15/2025 Penetrating atherosclerotic ulcer of aorta 03/07 Depression, unspecified 03/06/2025 Cognitive communication deficit 03/04/2025 Dysphagia, oropharyngeal phase 03/04/2025 Muscle weakness (generalized) 03/04/2025 Acute upper respiratory infection, unspecified 0 03/01/2025 Anemia, unspecified 03/01/2025 Essential (primary) hypertension 03/01/2025 Fracture of unspecified part of neck of unspecified femur, subsequent encounter for closed fracture with routine healing 03/01/2025 Malnutrition 03/01/2025 Noninfective gastroenteritis and colitis, unspec ified 03/01/2025 Pain in thoracic spine 03/01/2025 Pneumonia, unspecified organism 03/01/2025 Primary insomnia 03/01/2025 Nausea 02/22/2025 Age-related nuclear cataract of both eyes 2024 Atherosclerosis of aorta 09/13/2024 DDD (degenerative disc disease), cervical 2023 Other chronic pain 09/13/2024 Other thrombophilia 09/13/2024 Scrotal cyst 09/13/2024 Thoracic aortic aneurysm, without rupture, unspe cified 09/13/2024 Assessment & Plan (04/05/2025 1:02 PM EDT): For now keep blood pressure below 130/88 and heart rate below 88 follow-up with vascular surgery Abdominal aortic aneurysm (AAA) without rupture 04/10/2024 Overview (03/15/2025): Noted on CT chest 04/20, 2.3cm, stable, sacular aneurysm left lateral distal aortic arch Centrilobular emphysema 02/28/2024 Chronic respiratory failure with hypoxia 024 Gout, unspecified 02/28/2024 Lumbar radiculopathy 02/28/2024 Lung mass 02/28/2024 Mixed hyperlipidemia 02/28/2024 Neuropathy 02/28/2024 Prostate cancer 02/28/2024 Encounter for subsequent nereida [facility] wellness visit (AWV) in Medicare patient 02/28/2024 Chronic GERD 12/06/2023 Paroxysmal atrial fibrillation 11/12/2023 Assessment & Plan (04/05/2025 1:02 PM EDT): Has history remote history of paroxysmal atrial fibrillation currently maintained on diltiazem and aspirin check to the vascular score appear to be 1 for age and 1 for vascular disease patient is not on oral anticoagulation extensive bruising and upcoming surgery will 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-up with network intelligence analyst Carpal tunnel syndrome of right wrist 10/27/2023 Overview (03/15/2025): EMG RUE 10/26/2023 mod CTS Cellulitis of left lower limb 11/18/2017 Anxiety disorder, unspecified 11/17/2017 Primary osteoarthritis of left hip 11/14/2017 Difficulty walking 06/24/2017 Alcoholism 05/16/2013 COPD (chronic obstructive pulmonary disease) Assessment & Plan (04/05/2025 1:02 PM EDT): Bronchodilators supplemental oxygen Imbalance 05/16/2013 Marijuana smoker 05/16/2013 Tobacco abuse 05/16/2013 Encounters Date Type Department Care Team Description 05/08/2025 10:00 AM EDT Follow-Up [address] [address] Sylvain Fajardo MD PAF (paroxysmal atrial fibrillation) (CMS/HCC) (Primary Dx); Coronary artery disease involving viejas coronary artery of viejas heart without angina pectoris; Shortness of breath; Status post insertion of drug eluting coronary artery stent 05/08/2025 Orders Only [address] [address] ProviderDavey MD 05/02/2025 Telephone [place] [address] [facility] [place] [address] Nereida Pedro MA 04/05/2025 9:00 AM EDT - 04/05/2025 10:00 AM EDT Surgery [facility] V[facility] Lab [address] [place] [address] Sylvain Fajardo MD Coronary angiography 04/05/2025 8:32 AM EDT - 04/06/2025 11:35 PM EDT Hospital Encounter [facility] [address] [facility] [place] [address] Sylvain Fajardo MD Sanaullah, Babar, MD Coronary artery disease (Primary Dx); Abnormal stress test Discharge Disposition: Detention Facility () 04/05/2025 Travel 04/02/2025 Orders Only [place] [address] [facility] [place] [address] ChunSandra MA Abnormal stress test 04/02/[address] [address] Sandra Mccollum MA 03/15/2025 1:30 PM EDT Office Visit [address] [address] Sylvain Fajardo MD PAF (paroxysmal atrial fibrillation) (CMS/HCC) (Primary Dx); Preop cardiovascular exam; Shortness of breath from Last 3 Months Family History Medical History Relation Name Comments Emphysema Father Accidental Sister Relation Name Status Comments Father Mother Sister Social History Tobacco Use Types Packs/Day Years Used Date Smoking Tobacco: Former Cigarettes Smokeless Tobacco: Never Tobacco Cessation:Counseling Given: Not Answered Alcohol Use Standard Drinks/Week Comments Not Currently 0 (1 standard drink = 0.6 oz pur e alcohol) former [facility] Utilities Answer Date Recorded In the past 12 months has Vook, oil, or water Vimessa threatened to shut off services in your home? No 04/05/2025 Humiliation, Afraid, Rape, and Kick questionnair e Answer Date Recorded Within the last year, have y ou been afraid of your partner or ex-partner? No 04/05/2025 Emotionally Abused Not on file 04/05/2025 Physically Abused Not on file 04/05/2025 Sexually Abused Not on file 04/05/2025 Overall Financial Resource Strain (CARDIA) Answe r Date Recorded How hard is it for you to pa y for the very basics like food, housing, medical care, and heating? Not very hard 04/05/2025 Transportation Answer Date Recorded In the past 12 months, has l ack of transportation kept you from medical appointments or from getting medications? No 04/05/2025 Lack of Transportation (Non-Medical) Not on file 04/05/2025 Housing Stability Vital Sign Answer Thony e Recorded In the last 12 months, was t here a time when you were not able to pay the mortgage or rent on time? No 04/05/2025 Number of Times Moved in the Last Year Not on fi le 04/05/2025 At any time in the past 12 m [facility], were you homeless or living in a [facility] (including now)? No 04/05/2025 Hunger Vital Sign Answer Date Recorded Within the past 12 months, y ou worried that your food would run out before you got the money to buy more. Never true 04/05/20 25 Ran Out of Food in the Last Year Not on file 04/05/2025 Sex and Gender Information Value Date Recorded Sex Assigned at Not on file Legal Sex Male 10:22 PM EDT Gender Identity Not on file Sexual Orientation Not on file Last Filed Vital Signs Vital Sign Reading Time Taken Comments Blood Pressure 110/76 05/08/2025 10:11 AM EDT Pulse 91 05/08/2025 10:11 AM EDT Temperature 36.8 C (98.2 F) 04/06/2025 2:48 PM EDT Respiratory Rate 25 04/06/2025 2:48 PM EDT Oxygen Saturation 93% 05/08/2025 10:11 AM EDT Inhaled Oxygen Concentration - - Weight 60.3 kg (133 lb) 05/08/2025 10:11 AM EDT Height 175.3 cm (5' 9 ) 05/08/2025 10:11 AM EDT Body Mass Index 19.64 05/08/2025 10:11 AM EDT Plan of Treatment Health Maintenance Due Date Last Done Comments CT Colonography 1958 Colonoscopy 1958 Colorectal Cancer Screening 1958 FIT-DNA 1958 FIT 1958 FOBT 1960 Medicare Annual Wellness (AWV) 1960 Sigmoidoscopy 1958 Depression Screening 1970 COVID-19 Vaccine ( season) 2024 09/21/2024, 09/25/2022, 05/26/2021, Additional history exists Influenza Vaccine (#1) 2025 Fall Risk Screening 04/06/2026 04/06/2025 Adult Tetanus 03/11/2031 03/11/2021 Zoster Vaccines Completed 09/17/2023, 07/04/2023 Pneumococcal Vaccine: 50+ Years Completed 08/17/2024 HIB Vaccines Aged Out No longer eligi ble based on patient's age to complete this topic HPV Vaccines Aged Out No longer eligi ble based on patient's age to complete this topic IPV Vaccines Aged Out No longer eligi ble based on patient's age to complete this topic Meningococcal B Vaccine Aged Out No l onger eligible based on patient's age to complete this topic Meningococcal Vaccine Aged Out No neil shira eligible based on patient's age to complete this topic Rotavirus Vaccines Aged Out No longer eligible based on patient's age to complete this topic Medical Devices Implanted Type Area Mathematics Instructor Device Identifier Shelf Expiration Date Model / Serial / Lot Stent,Synergy Xd Mr [id number] - [id number] - [id number] Implanted:Qty : 1 on 04/05/2025 by Sylvain Fajardo MD at [facility] Drug Eluting Stent Left: Heart DATAllegro [id number] 12/11/2026 [id number] / [id number] / [id number] Procedures Procedure Name Priority Date/Time Associated Diagnosis Comments ECG 12-LEAD Routine 05/08/2025 10:57 AM EDT ECG 12-LEAD Routine 04/06/2025 11:59 AM EDT LIPID PANEL Add-On 04/05/2025 1:14 PM EDT HEMOGLOBIN A1C Add-On 04/05/2025 1:14 PM EDT CBC WITH AUTO DIFFERENTIAL Routine 04/05/2025 1:14 PM EDT MAGNESIUM Routine 04/05/2025 1:14 PM EDT COMPREHENSIVE METABOLIC PANEL Routine 04/05/2025 1:14 PM EDT CBC AND DIFFERENTIAL Routine 04/05/2025 1:14 PM EDT ECG 12-LEAD Today 04/05/2025 12:15 PM EDT PERC CORONARY INTERVENTION Routine 04/05/2025 10:42 AM EDT Abnormal stress test LEFT HEART CATH Routine 04/05/2025 10:42 AM EDT Abnormal stress test CORONARY ANGIOGRAPHY Routine 04/05/2025 10:42 AM EDT Abnormal stress test POCT ACT Routine 04/05/2025 10:42 AM EDT POCT ACT Routine 04/05/2025 10:20 AM EDT POCT ACT Routine 04/05/2025 9:51 AM EDT ECG 12-LEAD Routine 04/05/2025 8:58 AM EDT ECG 12 LEAD UNIT PERFORMED Routine 03/15/2025 1:18 PM EDT Preop cardiovascular exam from Last 3 Months Results * ECG 12 lead (05/08/2025 10:57 AM EDT) Only the most recent of4 resultswithin the time period is included. us Historical Provider ECG ORDERABLES Final Res ult * (ABNORMAL) CBC auto differential (04/05/2025 1:14 PM EDT) Auto WBC 9.86 4.00 - 10.60 10*3/uL 04/05/2025 1:51 PM EDT [facility] ([facility]) RBC 4.03(L) 4.20 - 5.70 10*6/uL 04/05/2025 1:51 PM EDT [facility] ([facility]) Hemoglobin 11.4(L) 13.0 - 17.0 g/dL 04/05/2025 1:51 PM EDT [facility] ([facility]) Hematocrit 36.2(L) 39.0 - 50.0 % 04/05/2025 1:51 PM EDT [facility] ([facility]) MCV 89.8 82.0 - 98.0 fL 04/05/2025 1:51 PM EDT [facility] ([facility]) MCH 28.3 27.0 - 33.0 pg 04/05/2025 1:51 PM EDT [facility] ([facility]) MCHC 31.5(L) 32.0 - 35.0 g/dL 04/05/2025 1:51 PM EDT [facility] ([facility]) RDW 15.0 11.5 - 15.0 % 04/05/2025 1:51 PM EDT [facility] ([facility]) Neutrophils % 76.7(H) 40.0 - 72.0 % 04/05/2025 1:51 PM EDT [facility] ([facility]) Lymphocytes % 14.8(L) 20.0 - 45.0 % 04/05/2025 1:51 PM EDT [facility] ([facility]) Monocytes % 5.9 5.0 - 12.0 % 04/05/2025 1:51 PM EDT [facility] ([facility]) Eosinophils % 0.6 0.0 - 6.0 % 04/05/2025 1:51 PM EDT [facility] ([facility]) Basophils % 0.6 0.0 - 1.0 % 04/05/2025 1:51 PM EDT [facility] ([facility]) Neutrophils Absolute 7.56 1.60 - 7.60 10*3/uL 04/05/2025 1:51 PM EDT [facility] ([facility]) Lymphocytes Absolute 1.46 1.20 - 4.00 10*3/uL 04/05/2025 1:51 PM EDT [facility] ([facility]) Monocytes Absolute 0.58 0.10 - 1.00 10*3/uL 04/05/2025 1:51 PM EDT [facility] ([facility]) Eosinophils Absolute 0.06 0.00 - 0.50 10*3/uL 04/05/2025 1:51 PM EDT [facility] ([facility]) Basophils Absolute 0.06 0.00 - 0.20 10*3/uL 04/05/2025 1:51 PM EDT [facility] ([facility]) Platelets 359 150 - 400 10*3/uL 04/05/2025 1:51 PM EDT [facility] ([facility]) nRBC % 0.0 0 % 04/05/2025 1:51 PM EDT [facility] ([facility]) Immature Granulocytes % 1.4(H) 0.0 - 1.0 % 04/05/2025 1:51 PM EDT [facility] ([facility]) Immature Granulocytes Absolute 0.14 0.00 - 0.20 10*3/uL 04/05/2025 1:51 PM EDT [facility] ([facility]) Blood Venous blood specimen / Unknown Arterial Line / Unknown 04/05/2025 1:14 PM EDT 04/05/2025 1:17 PM EDT us Denis Manuel MD LAB BLOOD ORDERABLES Final Re sult [facility]) [address] [place] [address] * (ABNORMAL) Magnesium (04/05/2025 1:14 PM EDT) Magnesium 1.7(L) 1.9 - 2.7 mg/dL 04/05/2025 1:44 PM EDT [facility] ([facility]) Blood Venous blood specimen / Unknown Arterial Line / Unknown 04/05/2025 1:14 PM EDT 04/05/2025 1:17 PM EDT Denis Manuel MD LAB BLOOD ORDERABLES Final Re sult [facility]) [address] [place] [address] * Hemoglobin A1c (04/05/2025 1:14 PM EDT) Hemoglobin A1C 5.0 4.0 - 6.0 % 04/06/2025 2:09 PM EDT [facility] ([facility]) Estimated Average Glucose 97 mg/dL 04/06/2025 2:09 PM EDT [facility] ([facility]) Blood Venous blood specimen / Unknown Arterial Line / Unknown 04/05/2025 1:14 PM EDT 04/05/2025 1:17 PM EDT Evelin Renteria MD LAB BLOOD ORDERABLES Final Resul t Performing Organization Address City/[facility] Care [facility]/ZIP Co de Phone Number [facility]) [address] [place] [phone] * Lipid panel (04/05/2025 1:14 PM EDT) Triglycerides 61 <150 mg/dL 04/06/2025 12:29 PM EDT [facility] ([facility]) Comment: TRIGLYCERIDE REFERENCE RANGE: 20 YEARS AND OLDER CARDIOVASCULAR RISK LESS THAN 150 mg/dL LOW RISK 150 TO 199 mg/dL BORDERLINE RISK 200 mg/dL AND GREATER HIGH RISK Cholesterol 136 120 - 200 mg/dL 04/06/2025 12:29 PM EDT [facility] ([facility]) LDL Calculated 83 0 - 160 mg/dL 04/06/2025 12:29 PM EDT [facility] ([facility]) HDL 41 23 - 92 mg/dL 04/06/2025 12:29 PM EDT [facility] ([facility]) Non HDL Cholesterol 95 04/06/2025 12:29 PM EDT [facility] ([facility]) Total VLDL-C 12 0 - 40 mg/dL 04/06/2025 12:29 PM EDT [facility] ([facility]) Cholesterol/HDL Ratio 3.3 mg/dL 04/06/2025 12:29 PM EDT [facility] ([facility]) Blood Venous blood specimen / Unknown Arterial Line / Unknown 04/05/2025 1:14 PM EDT 04/05/2025 1:17 PM EDT us Evelin Renteria MD LAB BLOOD ORDERABLES Final Resul t [facility]) [address], [place] [id number] * (ABNORMAL) Comprehensive metabolic panel (04/05/2025 1:14 PM EDT) Sodium 141 136 - 145 mmol/L 04/05/2025 1:44 PM EDT [facility] ([facility]) Potassium 3.7 3.5 - 5.1 mmol/L 04/05/2025 1:44 PM EDT [facility] ([facility]) Chloride 106 98 - 107 mmol/L 04/05/2025 1:44 PM EDT [facility] ([facility]) CO2 27 21 - 31 mmol/L 04/05/2025 1:44 PM EDT [facility] ([facility]) Anion Gap 12 7 - 20 mmol/L 04/05/2025 1:44 PM EDT [facility] ([facility]) BUN 18 7 - 25 mg/dL 04/05/2025 1:44 PM EDT [facility] ([facility]) Creatinine 0.72 0.70 - 1.30 mg/dL 04/05/2025 1:44 PM EDT [facility] ([facility]) BUN/Creatinine Ratio 25.0 07/2025 1:44 PM EDT [facility] ([facility]) Glucose 107(H) 70 - 100 mg/dL 04/05/2025 1:44 PM EDT [facility] ([facility]) Calcium 8.7 8.6 - 10.3 mg/dL 04/05/2025 1:44 PM EDT [facility] ([facility]) AST 15 13 - 39 U/L 04/05/2025 1:44 PM EDT [facility] ([facility]) ALT (SGPT) 9 7 - 52 U/L 04/05/2025 1:44 PM EDT [facility] ([facility]) Alkaline Phosphatase 63 34 - 104 U/L 04/05/2025 1:44 PM EDT [facility] ([facility]) Total Protein 6.3 6.0 - 8.3 g/dL 04/05/2025 1:44 PM EDT [facility] ([facility]) Albumin 3.4(L) 3.5 - 5.7 g/dL 04/05/2025 1:44 PM EDT [facility] ([facility]) Total Bilirubin 0.3 0.3 - 1.0 mg/dL 04/05/2025 1:44 PM EDT [facility] ([facility]) eGFR 100.8 >60.0 mL/min/1. 73m*2 04/05/2025 1:44 PM EDT [facility] ([facility]) Comment:The [facility] s estimated glomerular filtration rate (eGFR) will no longer include consideration of race in its calculation. The [employer] s eGFR Task Force developed new recommendations for the estimation of the glomerular filtration rate in the [place] They recommend immediate implementation of the new equation refit without the race variable in all laboratories because the calculation does not include race. In addition to not including race in the calculation and reporting, it included diversity in its development, and has acceptable performance characteristics and potential consequences that do not disproportionately affect any one group of individuals. Blood Venous blood specimen / Unknown Arterial Line / Unknown 04/05/2025 1:14 PM EDT 04/05/2025 1:17 PM EDT us Denis Manuel MD LAB BLOOD ORDERABLES Final Re sult [facility]) [address] [place] [address] * CORONARY ANGIOGRAPHY, LEFT HEART CATH, PERC CORONARY INTERVENTION (04/05/2025 10:42 AM EDT) Anatomical Region Laterality Modality Other Narrative 04/05/2025 1:08 PM EDT PROCEDURE PHYSICIAN: Sylvain Fajardo MD . Indications: Alphonse Rajput is a 64 y.o. male was evaluated recently in cardiology clinic because of upcoming endovascular repair of aortic aneurysm. He has COPD and severe peripheral vascular disease. He has shortness of breath on exertion. A stress test showed ischemia. He was referred for cardiac catheterization. He has prior history of paroxysmal atrial fibrillation without any clear evidence of recurrence. On presentation today he was found to be in atrial fibrillation with rapid ventricular response. Assistants: Dr Clement Saba. Procedure Performed: Bilateral selective coronary angiogram. Left heart catheterization. Successful balloon angioplasty and drug eluting stenting of two 90% stenotic lesions in the proximal and mid left anterior descending coronary artery, with reduction of the stenoses to 0% by a single Synergy XD 3.0 x 48 mm drug eluting stent, post-dilated to 3.25 mm at high pressures. Administration of intracoronary nitroglycerin. Access into the left radial artery under ultrasound guidance. Methods: Procedure was explained to the patient with risks and benefits; he signed informed consent. he was brought to the agriculture laborer in a fasting state. The left wrist area was prepped and draped in usual fashion. Micropuncture technique was used for access in the left radial artery. A 6-Sierra [place]an x 11 cm sheath was placed. Verapamil was given through the sheath, and heparin was administered intravenously. The 6-[place]an JR4 catheter was navigated across the aortic valve over a wire and used to perform left heart catheterization with measurement of pressures. Pullback across the aortic valve was performed with measurement of pressures. Bilateral selective coronary angiography was then performed using 6-S[place]an JL4 and JR4 diagnostic catheters. Catheters were removed. Heparin was administered intravenously and therapeutic ACT was confirmed during the rest of the procedure. A 6-[place]an XB 3.5 guiding catheter was advanced and used to engage the left coronary ostium. Baseline FAMILIA flow was 3. A [employer] coronary guide wire was advanced to the distal LAD coronary artery. We decided to protect the diagonal branch with a wire. A BMW coronary guidewire was then advanced and used to attempt wiring of the diagonal branch which had its origin at the site of the proximal LAD stenosis. Due to the angle of takeoff being 90 degrees there was inability to wire it. Therefore the wire was exchanged to a Fielder hydrophilic wire with a special curve and after multiple attempts there was ability to advance the wire into the diagonal branch. A 3.25 x 15 mm NC noncompliant balloon was advanced and used to performed balloon angioplasty at the site of the stenoses in the proximal and mid LAD with inflations up to 12 Wyatt. The balloon was retracted. Angiography was performed. A Synergy XD 3.0 x 48 mm drug-eluting stent was advanced and deployed at 8 Wyatt across the stenosis. Angiography was performed and this showed patency of the diagonal branch. The Fielder wire was retracted from the diagonal branch. The stent balloon was then inflated at 11 wyatt for nominal deployment of the stent. The stent was then postdilated using NC emerge 3.25 x 15 mm noncompliant balloon inflated up to 20 wyatt throughout the length of the stented segment. Intracoronary nitroglycerin was administered followed by angiography which revealed excellent result with reduction of the stenosis to 0%, no evidence of dissection or perforation and FAMILIA 3 flow in the coronary artery and branches. The guiding catheter and wire were removed. The patient was loaded with clopidogrel 600 mg at the end of the procedure. Hemostasis was achieved by TR band in the radial artery. he tolerated the procedure well and was transferred back to the cardiovascular recovery area. Hemodynamic Data: LV: 110/21, 11 AO: 113/74 (88) Coronary angiography: This is a right-dominant circulation. Left Main: This arises from the left coronary cusp. It bifurcates into left anterior descending and circumflex vessels. The left main has mild distal ectasia but no obstructive lesions. Left anterior descending: This is heavily calcified in its proximal to mid segments. The proximal segment has a 90% stenosis right at the takeoff of a large septal branch and a large diagonal branch. The diagonal branch itself has a 40% ostial stenosis. The mid segment of the LAD has a 90% hazy stenosis. Both proximal and mid LAD stenoses were reduced to 0% by a single Synergy XD drug-eluting stent. The distal LAD and diagonal branch have mild disease. Circumflex: This is a non-dominant vessel. The first obtuse marginal branch has minimal disease. The second obtuse marginal branch is a moderate caliber vessel and has a 90% proximal stenosis. This is best managed medically. The main circumflex in the midsegment has diffuse 30% stenotic lesion but no obstructive disease. Right coronary artery: This arises from the right coronary cusp. It is a dominant vessel. The proximal segment has a 50% stenosis. The mid segment has diffuse 20% disease. The distal segment has a 30% stenosis. The PDA and PLV branches have mild disease. Impression/Findings: Two 90% stenoses in the proximal and mid LAD both treated by a single Synergy XD drug-eluting stent. Severe stenosis in the proximal segment of the 2nd OM branch of the circumflex which is best managed medically. Moderate disease elsewhere. Normal left filling pressures. No aortic valve stenosis by hemodynamic measurement. Note is made of heavy calcifications seen in the ostial to proximal segments of the left subclavian artery. Plan: Medical therapy for coronary artery disease. Aspirin 81 mg daily for life. Dual antiplatelet therapy with Aspirin 81 mg daily for life and Clopidogrel 75 mg daily. Statin therapy for life. Risk factor control. Patient will be admitted to the hospital for control of atrial fibrillation and rapid ventricular response. I recommend starting low-dose Eliquis 2.5 mg twice daily. The patient is scheduled for endovascular repair of aortic aneurysm on 04/09/2025. He can proceed at low to intermediate cardiac risk. Dual antiplatelet therapy will have to be continued in the perioperative period. Eliquis can be held 2 days prior to the surgery. Eliquis should be resumed as soon as possible after the surgery. In 1 to 2 weeks the patient can stop aspirin and continue clopidogrel and Eliquis therapy. Follow up in Cardiology Clinic. Sylvain Fajardo MD Study Details Abnormal stress test [R94.39], Preop cardiovascular exam [Z01.810] Sylvain Fajardo MD CV CARDIAC CATH PROCEDURES F inal Result * (ABNORMAL) POC Activated Clotting Time (04/05/2025 10:42 AM EDT) Only the most recent of3 resultswithin the time period is included. 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
--- OUTSIDE RECORDS SUMMARY | 2025-06-05 08:37 | XMS_ITS | Encounter Summary ---
Author Organization [facility] Address [address] [place] [address] Care Team Providers Care Artist Blacksmith Name Role Phone Kathie Sánchez SENIOR SYSTEMS PROGRAMMER Unavailable [phone] Kathie Sánchez SENIOR SYSTEMS PROGRAMMER Unavailable [phone] Curt De Dios MD Primary Care Provider Kathie Sánchez NP Unavailable [phone] Lissa Garza MA Unavailable [phone] Andrade Pendleton OD Unavailable Encounter Details Date Type Department Care Team (Late st Contact Info) Description 01/10/2025 Orders Only [facility] [address] [place] [id number] Pedro Rose MD [address] [place] [address] Social History Tobacco Use Types Packs/Day Years [...] often do you attend chur ch or orthodoxy services? Never 02/28/2024 Do you belong to any clubs o r organizations such as bahai groups, unions, fraternal [...] Recorded Patient Health Questionnaire-2 Score 0 02/28/2024 [facility] Occupat ional Health - Occupational Stress [...] place to sleep or slept in a jail (including now)? No 02/28/2024 Sex and Gender Information Value Date Recorded Sex Assigned at Not on file Legal Sex Male 7:47 PM EDT Gender Identity Not on file Sexual Orientation Not on file documented as of this encounter Plan of Treatment Not on file documented as of this encounter Procedures Procedure Name Priority Date/Time Associated Diagnosis Comments CT ABDOMEN PELVIS WO IV CONTRAST Routine 01/10/2025 2:03 PM EST documented in this encounter Results * CT abdomen pelvis wo IV contrast (01/10/2025 2:03 PM EST) Anatomical Region Laterality Modality Body, Pelvis, Abdomen Computed T omography Pedro Rose MD IMG CT PROCEDURES Final Resul t documented in this encounter Visit Diagnoses Not on filedocumented in this encounter Additional Health Concerns Assessment Noted Time PHQ-9 Depression Total Score: 2 02/28/20 24 10:39 AM EDT A fall risk assessment has been complete d for the patient 02/28/2024 10:39 AM EDT documented as of this encounter Care Teams Artist Blacksmith Relationship Specialty Start Date End Date Kathie Sánchez NP [address] [place] [phone] PCP - Crow LAFLEUR 12/29/23 Crut De Dios MD [address] [place] [phone] PCP - General Family Medicine 02/28/24 05/01/25 Kathie Sánchez NP [address] [place] [address] Nurse Practitioner Family Medicine 10/03/23 Kathie Sánchez NP [address] [place] [phone] Nurse Practitioner Family Medicine 02/28/24 Lissa Garza MA [address] [place] [address] Family Medicine 12/05/24 03/06/25 Andrade Pendleton OD [address] [place] [phone] Referring Physician Optometry 01/02/25 documented as of this encounter
--- OUTSIDE RECORDS SUMMARY | 2025-06-05 08:37 | XMS_ITS | Clinical Summary ---
Author Organization [facility] Address [address] [place], [place] [id number] Care Team Providers Care Study Assistant Name Role Phone Kathie Sánchez Jessika VIRGEN Primary Care Provider [phone] Umu Nicolas Unavailable Unavailable Allergies No known active allergies Medications tiotropium (SPIRIVA WITH HANDIHALER) 18 mcg inhalation capsule Inhale 18 mcg as instructed once daily. Active ALBUTEROL SULFATE (PROVENTIL HFA INHALATION) Inhale as instructed. Active IBUPROFEN (ADVIL ORAL) Take by mouth. Ac tive fluticasone-sandra meterol (ADVAIR DISKUS) 250-50 mcg/dose DsDv Inhale 1 Puff as instructed twice daily. Active doxycycline 100 mg tablet Take 1 tablet by mouth twice daily. 14 tablet 0 3 Active predniSONE 20 mg tablet Take 2 pills daily x 3 days 6 tablet 0 3 Active aspirin, enteric coated (ASPIRIN, ENTERIC COATED) 81 mg EC tablet TAKE 1 TABLET (81 MG) BY MOUTH IN THE MORNING Active Benzonatate 200 mg capsule take 1 capsule by mouth 3 times a day as needed for cough Active budesonide-form oterol (SYMBICORT) 160-4.5 mcg/actuation inhaler INHALE 2 PUFFS INTO THE LUNGS TWICE A DAY FOR 90 DAYS *RINSE MOUTH AFTER USE* Active RESTASIS 0.05 % ophthalmic emulsion APPLY ONE DROP IN BOTH EYES 2 TIMES A DAY. 4 Active dilTIAZem XR (DILACOR XR) 180 mg 24 hr capsule Take 180 mg by mouth once daily. Active guaiFENesin (MUCINEX) 600 mg 12 hr tablet Take 1,200 mg by mouth. Active pantoprazole DR (PROTONIX) 40 mg tablet Take 40 mg by mouth. 9 Active roflumilast (DALIRESP) 500 mcg tab Take 500 mcg by mouth once daily. Active predniSONE (DELTASONE) 10 mg tablet Refills(s) 0 4 Active Active Problems Problem Noted Date Diagnosed Date Prostate cancer 06/24/2024 Imbalance 05/16/2013 COPD (chronic obstructive pulmonary disease) Tobacco abuse 05/16/2013 Alcoholism 05/16/2013 Marijuana smoker 05/16/2013 Family History Medical History Relation Comments COPD Father Relation Status Comments Father Maternal Grandfather Maternal Grandmother Paternal Grandfather Paternal Grandmother Social History Tobacco Use Types Packs/Day Years Used Date Smoking Tobacco: Former Cigarettes 2.5 37 1 980 - 2016 Smokeless Tobacco: Never Tobacco Cessation:Counseling Given: Not Answered Alcohol Use Standard Drinks/Week Comments Not Currently 0 (1 standard drink = 0.6 oz pur e alcohol) quit 2015 PHQ-2 Answer Date Recorded PHQ-2 score 0 09/11/2024 Area Deprivation Index Answer Date Guy rded National Score (1-100), lower number is lower ri sk 79 06/21/2024 State Score (1-10), lower number is lower risk 7 06/21/2024 Data from: https://www.neighborhoodatlas.medicine.[facility].edu/. Last address used for calculation [address] [place] [address] 06/21/2024 Sex and Gender Information Value Date Recorded Sex Assigned at Not on file Legal Sex Male 10:17 AM EST Gender Identity Not on file Sexual Orientation Not on file Last Filed Vital Signs Vital Sign Reading Time Taken Comments Blood Pressure 131/88 12/12/2024 9:53 AM EST Pulse 81 12/12/2024 9:53 AM EST Temperature 37.1 C (98.7 F) 12/12/2024 9:53 AM EST Respiratory Rate 18 12/12/2024 9:53 AM EST Oxygen Saturation 90% 12/12/2024 9:53 AM EST Inhaled Oxygen Concentration - - Weight 65.7 kg (144 lb 13.5 oz) 12/12/2024 9:53 AM EST Height 170.2 cm (5' 7 ) 06/21/2024 1:13 PM EDT Body Mass Index 22.69 06/21/2024 1:13 PM EDT Plan of Treatment Upcoming Encounters Date Type Department Care Team (Late st Contact Info) Description 06/12/2025 10:30 AM EDT Office Visit Radiation Oncology [address] [place] [address] Severo French MD [address] [place] [address] 6 month Follow up 06/12/2025 11:00 AM EDT Visit (SP) Office Hematology/Oncology [address] [place] [address] Cat Baker, DINING ROOM HOST/HOSTESS.LORRY WEIGHER [address] [place] [address] survivorship Health Maintenance Due Date Last Done Comments Abdominal Aortic Aneurysm Screening 1960 Annual PCP Team Chronic Dise ase Visit 1976 Anxiety Screening 1976 Depression Screening 1976 Hepatitis C Screening 1976 CT Colonography 2003 Cologuard (FIT-DNA) 2003 Colonoscopy 2003 Colorectal Cancer Screening 2003 Fecal Occult Blood 2003 Sigmoidoscopy 2003 Advance Directive Discussion 11/28/2024 Medicare Advantage Annual We llness Visit 11/28/2024 Covid-19 Vaccine ( - 2023-2 5 season) 2025 09/21/2024, 09/25/2022, 05/26/2021, Additional history exists Influenza Vaccine (#1) 2025 Lung Cancer Screening 02/27/2026 02/27/2025 Diabetes Screening 05/01/2028 05/01/2025, 0 04/30/2025, 04/05/2025, Additional history exists Prostate Cancer Screening Discussion 12/05/2029 12/05/2024, 09/07/2024 Lipid Screening 04/05/2030 04/05/2025 DTaP,Tdap,Td Vaccine (2 - Td or Tdap) 03/11/2031 03/11/2021 Shingrix Vaccine Completed 09/17/2023, 07/04/2023 Pneumococcal Vaccine: 50+ Completed 08/17/2024 RSV Vaccine Completed 08/17/2024 Procedures Procedure Name Priority Date/Time Associated Diagnosis Comments PSA (OUTSIDE) Routine 12/05/2024 from Last 3 Months or Most Recently Relevant to Health Maintenance Results * PSA (OUTSIDE) (12/05/2024) PSA. 4.2 BLOOD SPECIMEN / Unknown 12/05/2024 [facility] Provider LABORATORY Final Result from Last 3 Months or Most Recently Relevant to Health Maintenance Insurance [employer] MEDICARE ADVANTAGE O Care Teams Study Assistant Relationship Specialty Start Date End Date Kathie Sánchez, LORRY WEIGHER [address] [place] [address] PCP - General Family Medicine 06/21/24 Umu Nicolas LSW Roll Capper 09/18/24
--- OUTSIDE RECORDS SUMMARY | 2025-06-05 08:37 | XMS_ITS ---
Author Organization [facility] Address [address] [place] [address] Care Team Providers Care Document Clerk Name Role Phone Curt De Dios MD Primary Care Provider [phone] Active Problems Problem Noted Date Diagnosed Date Fall (on) (from) other stairs and steps, initial encounter 05/08/2025 Fracture of bone adjacent to prosthesis 05/08/20 25 Coronary artery disease (CAD) excluded 5 Coronary artery disease 04/05/2025 Assessment & Plan [...] 02/28/2024 Prostate cancer 02/28/2024 Encounter for subsequent [facility] visit (AWV) in Medicare patient 02/28/2024 [...] bruising and upcoming surgery will follow-up with sugar grinder Carpal tunnel syndrome of right wrist 10/27/2023 Overview (03/15/2025): EMG RUE 10/26/2023 mod CTS Cellulitis of left lower limb 11/18/2017 Anxiety disorder, unspecified 11/17/2017 Primary osteoarthritis of left hip 11/14/2017 Difficulty walking 06/24/2017 Alcoholism 05/16/2013 COPD (chronic obstructive pulmonary disease) Assessment & Plan (04/05/2025 1:02 PM EDT): Bronchodilators supplemental oxygen Imbalance 05/16/2013 Marijuana smoker 05/16/2013 Tobacco abuse 05/16/2013 Current Treatment and Therapy Plans No current plan information found. Past Treatment and Therapy Plans No past plan information found. Lifetime Dose Tracking * Chemical Lifetime Dose Automatic Entry Manual Entr y Fluoro Time 27.29 minutes 0 minutes 27.29 minutes Air Kerma 861 mGy 0 mGy 861 mGy
--- OUTSIDE RECORDS SUMMARY | 2025-06-05 08:37 | XMS_ITS | Encounter Summary ---
Author Organization [facility] Address [address] [place] [address] Care Team Providers Care Screening Specialist Name Role Phone Kathie Sánchez NP Unavailable [phone] Kathie Sánchez NP Unavailable [phone] Curt De Dios MD Primary Care Provider [phone] Kathie Sánchez NP Unavailable [phone] Lissa Garza MA Unavailable [phone] Andrade Pendleton OD Unavailable Encounter Details Date Type Department Care Team (Late st Contact Info) Description 04/09/2024 Clinisync Result Encounter [facility] External Department Unsolicited Provider, Generic External Data Social History Tobacco Use Types Packs/Day Years [...] often do you attend chur ch or quaker services? Never 02/28/2024 Do you belong to [...] Recorded Patient Health Questionnaire-2 Score 0 02/28/2024 [facility] Occupat ional Health - Occupational Stress [...] money to buy more. Never true 02/28/20 24 Within the past 12 months, t he [...] place to sleep or slept in a senior care (including now)? No 02/28/2024 Sex and Gender Information Value Date Recorded Sex Assigned at Not on file Legal Sex Male 7:47 PM EDT Gender Identity Not on file Sexual Orientation Not on file documented as of this encounter Plan of Treatment Not on file documented as of this encounter Procedures Procedure Name Priority Date/Time Associated Diagnosis Comments CT CHEST WO CON 04/09/2024 3:18 PM EDT documented in this encounter Results * CT CHEST WO CON (04/09/2024 3:18 PM EDT) Anatomical Region Laterality Modality Other 04/09/2024 3:18 PM EDT Narrative 04/09/2024 3:21 [place] [address] CT Scan Report Signed Patient: ALPHONSE STEARNS MR#: [id number] : 1960 Acct:[id number] Age/Sex: 63 / M ADM Date: 04/09/24 Loc: CT Attending Dr: Josué Alves D.O. Ordering Physician: Josué Alves D.O. Date of Service: 04/09/24 Procedure(s): CT chest wo con Accession Number(s): [id number] cc: Kathie Sánchez NP The [address] [address] Patient Name: ALPHONSE STEARNS MRN: [id number] date: 1960 Sex: M Assigned Patient Location: CT Current Patient Location: CT Accession/Order Number: [id number] Exam Date: 04/09/2024 12:51 Report Date: 04/09/2024 15:18 At the request of: JOSUÉ ALVES Procedure: CT chest wo con EXAMINATION: CT chest wo con HISTORY: Pneumonia J18.0, Collapse Of Lung Tissue J98.11 COMPARISON: 01/15/2024 TECHNIQUE: Multi-planar CT images were created with IV contrast. Axial, Coronal, and Sagittal images. Dose reduction techniques were achieved by using automated exposure control and/or adjustment of mA and/or kV according to patient size and/or use of iterative reconstruction technique. FINDINGS: LUNGS: Near complete resolution of right upper and right middle lobe infiltrates with some residual groundglass opacities likely representing chronic scarring. Moderate diffuse centrilobular emphysema. No new significant pulmonary nodule or mass PLEURA: No mass, effusion, or pneumothorax. VASCULATURE: No abnormality. AYLA: No mass or adenopathy. 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 BONES: No bone lesion or fracture. LIMITED ABDOMEN: No suspicious findings. Limited images of the upper abdomen. OTHER: Negative. CT/CT chest wo con IMPRESSION: Near complete resolution of right upper/middle lobe pneumonia Moderate diffuse emphysema Electronically authenticated by: OK CISNEROS Date: 04/09/2024 15:18 Dictated By: Ok Cisneros M.D. Signed By: 04/09/24 1521 DD/ 1518 TD/TT: Cutting Torch Operator: Procedure Note Radiology, Radiologist, - 04/09/[address] [address] [address] Scan Report Signed Patient: ALPHONSE STEARNS WMR#: [id number] : 1960cct:[id number] Age/Sex: 63 / MADM Date: 04/09/24 Loc: CT Attending Dr: Josué Alves D.O. Ordering Physician: Josué Alves D.O. Date of Service: 04/09/24 Procedure(s): CT chest wo con Accession Number(s): [id number] cc: Kathie Sánchez NP [address] [address] Patient Name: ALPHONSE STEARNS MRN: [id number] date: 1960 Sex: M Assigned Patient Location: CT Current Patient Location: CT Accession/Order Number: [id number] Exam Date: 04/09/2024 12:51 Report Date: 04/09/2024 15:18 At the request of: JOSUÉ ALVES Procedure: CT chest wo con EXAMINATION: CT chest wo con HISTORY: Pneumonia J18.0, Collapse Of Lung Tissue J98.11 COMPARISON: 01/15/2024 TECHNIQUE: Multi-planar CT images were created with IV contrast. Axial, Coronal, and Sagittal images. Dose reduction techniques were achieved byusing automated exposure control and/or adjustment of mA and/or kV according to patient size and/or use of iterative reconstruction technique. FINDINGS: LUNGS: Near complete resolution of right upper and right middle lobe infiltrates with some residual groundglass opacities likely representing chronic scarring. Moderate diffuse centrilobular emphysema. No newsignificant pulmonary nodule or mass PLEURA: No mass, effusion, or pneumothorax. VASCULATURE: No abnormality. AYLA: No mass or adenopathy. MEDIASTINUM: Calcified pretracheal and subcarinal lymph nodes CARDIAC: No enlargement or pericardial effusion Coronary artery calcifications: Moderate AORTA: Saccular aneurysm along the left lateral distal aortic arch,grossly stable measuring 2.3 cm in AP dimension. Left lateral saccular aneurysm ofthe abdominal aorta at the level of the diaphragm, stable CHEST WALL: No mass or axillary adenopathy. BONES: No bone lesion or fracture. LIMITED ABDOMEN: No suspicious findings. Limited images of the upperabdomen. OTHER: Negative. CT/CT chest wo con IMPRESSION: Near complete resolution of right upper/middle lobe pneumonia Moderate diffuse emphysema Electronically authenticated by: OK CISNEROS Date: 04/09/2024 15:18 Dictated By: Ok Cisneros M.D. Signed By:04/09/24 1521 DD/ 1518 TD/TT: Cutting Torch Operator: us Generic External Data Provider [facility] Final Result documented in this encounter Visit Diagnoses Not on filedocumented in this encounter Additional Health Concerns Assessment Noted Time PHQ-9 Depression Total Score: 2 02/28/20 10:39 AM EDT A fall risk assessment has been complete d for the patient 02/28/2024 10:39 AM EDT documented as of this encounter Care Teams Screening Specialist Relationship Specialty Start Date End Date Kathie Sánchez NP [address] [place] [address] PCP - [place] 12/29/23 Curt De Dios MD [address] [place] [address] PCP - General Family Medicine 02/28/24 05/01/25 Kathie Sánchez NP [address] [place] [phone] Nurse Practitioner Family Medicine 10/03/23 Kathie Sánchez NP [address] [place] [phone] Nurse Practitioner Family Medicine 02/28/24 Lissa Garza MA [address] [place] [address] Family Medicine 12/05/24 03/06/25 Andrade Pendleton OD [address] [place] [phone] Referring Physician Optometry 01/02/25 documented as of this encounter
--- OUTSIDE RECORDS SUMMARY | 2025-06-05 08:37 | XMS_ITS | Encounter Summary ---
Author Organization [facility] Address [address] [place] [address] Care Team Providers Care Or Nurse Manager Name Role Phone Kathie Sánchez NP Unavailable [phone] Kathie Sánchez WILDLIFE [employer] G[employer]OT[employer]OR Unavailable [phone] Curt De Dios MD Primary Care Provider Kathie Sánchez NP Unavailable [phone] Lissa Garza MA Unavailable [phone] Andrade Pendleton OD Unavailable Encounter Details Date Type Department Care Team (Late st Contact Info) Description 01/14/2025 Orders Only [facility] [address] [facility] [place] [address] Althea Ag MD [address] [place] [address] Social History Tobacco Use Types Packs/Day Years [...] often do you attend chur ch or buddhism services? Never 02/28/2024 Do you belong to any clubs o r organizations such as zoroastrianism groups, unions, fraternal or athletic groups, or [...] Recorded Patient Health Questionnaire-2 Score 0 02/28/2024 [facility] - [...] place to sleep or slept in a halfway (including now)? No 02/28/2024 Sex and Gender [...] HIP 2 OR 3 VW RIGHT Routine 01/14/2025 9:16 AM EST XR CHEST 1 VIEW Routine 01/14/2025 9:15 AM EST documented in this encounter Results * XR hip right 2 or 3 views (01/14/2025 9:16 AM EST) Anatomical Region Laterality Modality Lower Extremities, Hip Right Radiograp hic Imaging us Althea [facility] XR PROCEDURES Final Result * XR chest 1 view (01/14/2025 9:15 AM EST) Anatomical Region Laterality Modality Chest Radiographic Veronique ging us Althea [facility] XR PROCEDURES Final Result documented in this encounter Visit Diagnoses Not on filedocumented in this encounter Additional Health Concerns Assessment Noted Time PHQ-9 Depression Total Score: 2 02/28/20 10:39 AM EDT A fall risk assessment has been complete d for the patient 02/28/2024 10:39 AM EDT documented as of this encounter Care Teams Or Nurse Manager Relationship Specialty Start Date End Date Kathie Sánchez NP [address] [place] [phone] PCP - Crow LAFLEUR 12/29/23 Curt De Dios MD [address] [place] [phone] PCP - General Family Medicine 02/28/24 05/01/25 Kathie Sánchez NP [address] [place] [phone] Nurse Practitioner Family Medicine 10/03/23 Kathie Sánchez NP [address] [place] [phone] Nurse Practitioner Family Medicine 02/28/24 Lissa Garza ID [id number] [place] [address] Family Medicine 12/05/24 03/06/25 Andrade Pendleton OD [address] [place] [phone] Referring Physician Optometry 01/02/25 documented as of this encounter
--- OUTSIDE RECORDS SUMMARY | 2025-06-05 08:37 | XMS_ITS | Patient Health Record ---
Author Organization [facility] Address [address] [place] [address] Care Team Providers Care News Correspondent Name Role Phone James Mart Unavailable [phone] Self, Referral Unavailable Unavailable Alyson Floyd Unavailable [phone] Harmony Tran Unavailable Results Component Value Reference Range Notes SCC- HIP W/ PELVIS, RIGHT [id number] Reviewed date:02/14/2025 03:56:24 PM Interpretation: Performing Lab: Notes/Report: Reason For Referral No Information Problems Problem Type SNOMED Code ICD Code Onset Dates Problem Status W/U Status Risk Notes Problem 001635425 Nausea (R11.0) Active confirmed Problem 991470843 Fall (on) (from) other stairs and steps, initial encounter (W10.8XXA) Active confirmed Problem 582743042 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, initial encounter (M97.01XA) Active confirmed Problem 592055586 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, subsequent encounter (M97.01XD) Active confirmed Problem 64922182 Malnutrition, unspecified type (E46) Active confirmed Encounters Encounter Location Date Provider Diagnosis [facility] [address] [place] [address] [place] [address] 05/15/2025 Alyson Floyd 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, subsequent encounter M97.01XD [facility] [address] [facility] [place] [address] 01/14/2025 Harmony Tran 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, initial encounter M97.01XA and Fall (on) (from) other stairs and steps, initial encounter W10.8XXA [facility] [address] [facility] [place] [address] [place] [address] 02/11/2025 Harmony Tran 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, subsequent encounter M97.01XD [facility] [address] [place] [facility] [place] [address] 02/25/2025 Harmony [facility] Malnutrition, unspecified type E46 ; Nausea R11.0 and 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, subsequent encounter M97.01XD [facility] [address] [facility] [place] [address] [place] [address] 04/01/2025 James Mart Acute right hip pain M25.551 and 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, subsequent encounter M97.01XD Assessments Encounter Date Diagnosis (ICD Code) Assessment Notes Treatment Notes Treatment Clinical Notes Section Notes 01/14/2025 Fall (on) (from) other stairs and steps, initial encounter (ICD-10 - W10.8XXA) M 01/14/2025 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, initial encounter (ICD-10 - M97.01XA) M 02/11/2025 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, subsequent encounter (ICD-10 - M97.01XD) 02/25/2025 Nausea (ICD-10 - R11.0) 02/25/2025 Malnutrition, unspecified type (ICD-10 - E46) 04/01/2025 Acute right hip pain (ICD-10 - M25.551) 05/15/2025 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, subsequent encounter (ICD-10 - M97.01XD) 04/01/2025 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, subsequent encounter (ICD-10 - M97.01XD) 02/25/2025 Periprosthetic fracture around internal prosthetic right hip [...] by my supervising physician, Dr. Barron MD. 02/11/2025 Other Patient is now a month out from injury after a fall with his right femur periprosthetic fracture. I have recommended continuing nonweightbearing to the right lower extremity. We will see patient back in a month for reevaluation and to repeat x-rays. 04/01/2025 Other Patient is doing well. Will have physical therapy work with him on gait training and weightbearing as tolerated. He will gradually progress his weightbearing over the next 2 to 3 weeks. Will follow-up in 6 weeks to repeat x-rays and reassess his progress. Import medication Plan Of Treatment Pending Test Test Name Order Date PT EVAL AND TREAT 05/15/2025 SCC- HIP W/ PELVIS, RIGHT [id number] 04/01/20 SCC- HIP W/ PELVIS, RIGHT [id number] 05/15/20 Next Appt Details Provider Name:James Malik and, 07/17/2025 10:45:00 AM, [address] [facility] , [address], [address], Insurance Providers Payer Name Payer Address Payer Phone Subscriber Number Group Number Insured Name Patient Relationship to Insured Coverage Start Date Coverage End Date Medicare [place] [employer] [address] [place] [address] [id number] [id number] MATEO STEARNS Self - patient is the insured 4 [place] [employer] [address] [place] [address] [id number] MATEO STEARNS Self - patient is the insured [facility] [address] [place] [address] [id number] MATEO STEARNS Self - patient is the insured 5 Medical (General) History Medical History History ICD Code Alcoholism: Yes Cancer: Yes Cancer Type: Prostate COPD: : Yes CPAP Machine:: No Emphysema: Yes Gout:: Yes Healthcare worker: No Heart condition:: Yes Latex Allergy: No Have you been in close conta ct with someone who has had MRSA within the last year?: No Have you ever had or presently have MRSA ?: No Have you been seen by a dentist in the l ast year?: Yes Do you have any dental probl ems i.e. Broken, loose, or chipped teeth, absess, gum disease?: No
--- OUTSIDE RECORDS SUMMARY | 2025-06-05 08:37 | XMS_ITS | Patient Health Record ---
Author Organization [facility] in [place] Address [address] [place] [address] Care Team Providers Care Supervisor Audit Clerks Name Role Phone Richemrach VIRGEN Kathie Primary Care Provider Unavail able Josué Shea Unavailable [phone] Allergies No Known Allergies Results Component Value Reference Range Notes MAGNESIUM Reviewed date:02/24/2025 04:01:58 PM Interpretation: Performing Lab: Notes/Report: [facility] , Magnesium 1.7 1.8-2.4 mg/dL Performing Lab: see note ML - [facility] LB PROF CHEM 8 (BAS METB) Reviewed date:02/24/2025 04:01:58 PM Interpretation: Performing Lab: Notes/Report: [facility] , Sodium 142 136-145 mmol/L Potassium 3.5 3.5-5.1 mmol/L Chloride 102 98-107 mmol/L Carbon Dioxide 27.4 21.0-32.0 mmol/L Anion Gap 16.1 Glucose 140 74-106 mg/dL Blood Urea Nitrogen 11.0 7.0-18.0 mg/dL Creatinine 0.82 0.70-1.30 mg/dL Estimated GFR ( Mansi >60 >=60 mL/min/1.73m 2 Estimated GFR (Non- Chaya >60 >=60 mL/min/1.73m 2 BUN Creatinine Ratio 13.4 Calcium 9.0 8.5-10.1 mg/dL Performing Lab: see note ML - [facility] LB Epithelial Cells Reviewed date:02/27/2025 07:46:31 PM Interpretation: Performing Lab: Notes/Report: [facility] , Epithelial Cells See Below For Report Epithelial Cells None seen Performing Lab: see note LC - [facility] LB Result 1 Reviewed date:02/27/2025 07:46:31 PM Interpretation: Performing Lab: Notes/Report: [facility] , Result 1 See Below For Report Result 1 Many gram positive rods. Performing Lab: see note LC - [facility] LB Result 2 Reviewed date:02/27/2025 07:46:31 PM Interpretation: Performing Lab: Notes/Report: [facility] , Result 2 See Below For Report Result 2 Few gram positive cocci Performing Lab: see note LC - [facility] LB Result 3 Reviewed date:02/27/2025 07:46:31 PM Interpretation: Performing Lab: Notes/Report: [facility] , Result 3 See Below For Report Result 3 ALTERNATIVE DISPUTE RESOLUTION MEDIATOR Performing Lab: see note LC - [facility] LB Result 4 Reviewed date:02/27/2025 07:46:31 PM Interpretation: Performing Lab: Notes/Report: [facility] , Result 4 See Below For Report Result 4 ALTERNATIVE DISPUTE RESOLUTION MEDIATOR Performing Lab: see note LC - [facility] LB Gram Stain Evaluation Reviewed date:02/27/2025 07:46:31 PM Interpretation: Performing Lab: Notes/Report: [facility] , Gram Stain Evaluation See Below For Report Gram Stain Evaluation This specimen is of good quality and is acceptable for routine Gram Stain Evaluation bacterial culture. Gram Stain Evaluation This specimen is of good quality and is acceptable for routine Performing Lab: see note LC - [facility] LB Lower Respiratory Culture Reviewed date:02/27/2025 07:46:31 PM Interpretation: Performing Lab: Notes/Report: [facility] , Lower Respiratory Culture See Below For Report Lower Respiratory Culture WILL FOLLOW Lower Respiratory Culture Routine respiratory juanis Lower Respiratory Culture WILL FOLLOW Lower Respiratory Culture Performed at: [facility] Lower Respiratory Culture WILL FOLLOW Lower Respiratory Culture [address] [place], [place] [id number] Lower Respiratory Culture WILL FOLLOW Lower Respiratory Culture Accountant Tax: Iván Damon PhD, Phone: [phone] Lower Respiratory Culture WILL FOLLOW Performing Lab: see note LC - [facility] LB SEE REPORT - Sole Dyer Id information not found for OBX-specific digital media producer legend CBC AUTO DIFF Reviewed date:03/03/2025 03:33:06 PM Interpretation: Performing Lab: Notes/Report: [facility] , White Blood Count 6.7 4.0-11.0 10 3/uL Red Blood Count 4.50 4.70-6.10 10 6/uL Hemoglobin 12.9 14.0-18.0 g/dL Hematocrit 40.7 42.0-54.0 % Mean Corpuscular Volume 90.4 80.0-94.0 fL Mean Corpuscular Hemoglobin 28.7 25.9-34.0 pg Mean Corpuscular HGB Conc 31.7 29.9-35.2 g/dL Red Cell Distribution Width 14.8 11.0-15.0 % Platelet Count 285 150-450 10 3/uL Mean Platelet Volume 9.3 9.5-13.5 fL Performing Lab: see note ML - [facility] LB PROF CHEM 8 (BAS DEDE) Reviewed date:03/03/2025 03:33:06 PM Interpretation: Performing Lab: Notes/Report: [facility] , Sodium 145 136-145 mmol/L Potassium 3.9 3.5-5.1 mmol/L Chloride 107 98-107 mmol/L Carbon Dioxide 29.2 21.0-32.0 mmol/L Anion Gap 12.7 Glucose 131 74-106 mg/dL Blood Urea Nitrogen 37.0 7.0-18.0 mg/dL Creatinine 0.93 0.70-1.30 mg/dL Estimated GFR ( Mansi >60 >=60 mL/min/1.73m 2 Estimated GFR (Non- Chaya >60 >=60 mL/min/1.73m 2 BUN Creatinine Ratio 39.8 Calcium 8.5 8.5-10.1 mg/dL Performing Lab: see note ML - [facility] LB Manual Differential Reviewed date:03/03/2025 03:33:06 PM Interpretation: Performing Lab: Notes/Report: [facility] , Segmented Neutrophils % Manual 90.0 43.0-75.0 Lymphocytes Percent Manual 6.0 20.5-60.0 % Monocytes Percent Manual 4.0 1.7-12.0 % Eosinophils Percent Manual 0.0 0.9-7.0 % Basophils Percent Manual 0.0 0.2-2.0 % Segmented Neut Absolute Manual 6.03 1.4-6.5 10 3/uL Lymphocytes Absolute Manual 0.40 1.20-3.80 10 3/uL Monocytes Absolute Manual 0.26 0.30-0.80 10 3/uL Eosinophils Absolute Manual 0.00 0.00-0.70 10 3/uL Basophils Abs Manual 0.00 0.00-0.10 10 3/uL Performing Lab: see note - [facility] LB PROF CHEM 8 (BAS METB) Reviewed date:02/28/2025 05:22:07 PM Interpretation: Performing Lab: Notes/Report: [facility] , Sodium 144 136-145 mmol/L Potassium 4.1 3.5-5.1 mmol/L Chloride 107 98-107 mmol/L Carbon Dioxide 27.1 21.0-32.0 mmol/L Anion Gap 14.0 Glucose 126 74-106 mg/dL Blood Urea Nitrogen 27.0 7.0-18.0 mg/dL Creatinine 0.86 0.70-1.30 mg/dL Estimated GFR ( Mansi >60 >=60 mL/min/1.73m 2 Estimated GFR (Non- Chaya >60 >=60 mL/min/1.73m 2 BUN Creatinine Ratio 31.4 Calcium 8.7 8.5-10.1 mg/dL Performing Lab: see note ML - [facility] LB CBC AUTO DIFF Reviewed date:02/28/2025 05:22:07 PM Interpretation: Performing Lab: Notes/Report: [facility] , White Blood Count 6.8 4.0-11.0 10 3/uL Red Blood Count 4.44 4.70-6.10 10 6/uL Hemoglobin 12.8 14.0-18.0 g/dL Hematocrit 39.9 42.0-54.0 % Mean Corpuscular Volume 89.9 80.0-94.0 fL Mean Corpuscular Hemoglobin 28.8 25.9-34.0 pg Mean Corpuscular HGB Conc 32.1 29.9-35.2 g/dL Red Cell Distribution Width 14.8 11.0-15.0 % Platelet Count 272 150-450 10 3/uL Mean Platelet Volume 9.3 9.5-13.5 fL Neutrophils Percent Auto 90.6 43.0-75.0 % Lymphocytes Percent Auto 4.4 20.5-60.0 % Monocytes Percent Auto 3.7 1.7-12.0 % Eosinophils Percent Auto 0.0 0.9-7.0 % Basophils Percent Auto 0.1 0.2-2.0 % Immature Granulocytes Pct Auto 1.2 0.0-0.5 % Neutrophils Absolute Auto 6.2 1.4-6.5 10 3/uL Lymphocytes Absolute Auto 0.3 1.2-3.8 10 3/uL Monocytes Absolute Auto 0.3 0.3-0.8 10 3/uL Eosinophils Absolute Auto 0.0 0.0-0.7 10 3/uL Basophils Absolute Auto 0.0 0.0-0.1 10 3/uL Immature Granulocytes Abs Auto 0.08 0.00-0.03 10 3/uL Performing Lab: see note [facility] LB PROF CHEM 8 (KRISTIN AGUAYO) Reviewed date:02/27/2025 07:46:31 PM Interpretation: Performing Lab: Notes/Report: [facility] , Sodium 145 136-145 mmol/L Potassium 3.8 3.5-5.1 mmol/L Chloride 107 98-107 mmol/L Carbon Dioxide 29.7 21.0-32.0 mmol/L Anion Gap 12.1 Glucose 133 74-106 mg/dL Blood Urea Nitrogen 32.0 7.0-18.0 mg/dL Creatinine 0.80 0.70-1.30 mg/dL Estimated GFR ( Mansi >60 >=60 mL/min/1.73m 2 Estimated GFR (Non- Chaya >60 >=60 mL/min/1.73m 2 BUN Creatinine Ratio 40.0 Calcium 8.7 8.5-10.1 mg/dL Performing Lab: see note - [facility] LB CBC AUTO DIFF Reviewed date:02/27/2025 07:46:31 PM Interpretation: Performing Lab: Notes/Report: [facility] , White Blood Count 6.8 4.0-11.0 10 3/uL Red Blood Count 4.28 4.70-6.10 10 6/uL Hemoglobin 12.2 14.0-18.0 g/dL Hematocrit 38.7 42.0-54.0 % Mean Corpuscular Volume 90.4 80.0-94.0 fL Mean Corpuscular Hemoglobin 28.5 25.9-34.0 pg Mean Corpuscular HGB Conc 31.5 29.9-35.2 g/dL Red Cell Distribution Width 15.0 11.0-15.0 % Platelet Count 298 150-450 10 3/uL Mean Platelet Volume 9.3 9.5-13.5 fL Neutrophils Percent Auto 89.3 43.0-75.0 % Lymphocytes Percent Auto 6.5 20.5-60.0 % Monocytes Percent Auto 3.2 1.7-12.0 % Eosinophils Percent Auto 0.0 0.9-7.0 % Basophils Percent Auto 0.1 0.2-2.0 % Immature Granulocytes Pct Auto 0.9 0.0-0.5 % Neutrophils Absolute Auto 6.1 1.4-6.5 10 3/uL Lymphocytes Absolute Auto 0.4 1.2-3.8 10 3/uL Monocytes Absolute Auto 0.2 0.3-0.8 10 3/uL Eosinophils Absolute Auto 0.0 0.0-0.7 10 3/uL Basophils Absolute Auto 0.0 0.0-0.1 10 3/uL Immature Granulocytes Abs Auto 0.06 0.00-0.03 10 3/uL Performing Lab: see note ML - [facility] LB PROF CHEM 8 (BAS METB) Reviewed date:02/26/2025 04:26:35 PM Interpretation: Performing Lab: Notes/Report: [facility] , Sodium 144 136-145 mmol/L Potassium 4.1 3.5-5.1 mmol/L Chloride 106 98-107 mmol/L Carbon Dioxide 28.7 21.0-32.0 mmol/L Anion Gap 13.4 Glucose 135 74-106 mg/dL Blood Urea Nitrogen 26.0 7.0-18.0 mg/dL Creatinine 0.88 0.70-1.30 mg/dL Estimated GFR ( Mansi >60 >=60 mL/min/1.73m 2 Estimated GFR (Non- Chaya >60 >=60 mL/min/1.73m 2 BUN Creatinine Ratio 29.5 Calcium 8.8 8.5-10.1 mg/dL Performing Lab: see note - [facility] LB CBC AUTO DIFF Reviewed date:02/26/2025 04:26:35 PM Interpretation: Performing Lab: Notes/Report: [facility] , White Blood Count 7.6 4.0-11.0 10 3/uL Red Blood Count 3.96 4.70-6.10 10 6/uL Hemoglobin 11.6 14.0-18.0 g/dL Hematocrit 35.6 42.0-54.0 % Mean Corpuscular Volume 89.9 80.0-94.0 fL Mean Corpuscular Hemoglobin 29.3 25.9-34.0 pg Mean Corpuscular HGB Conc 32.6 29.9-35.2 g/dL Red Cell Distribution Width 15.1 11.0-15.0 % Platelet Count 289 150-450 10 3/uL Mean Platelet Volume 9.0 9.5-13.5 fL Neutrophils Percent Auto 89.7 43.0-75.0 % Lymphocytes Percent Auto 6.6 20.5-60.0 % Monocytes Percent Auto 3.0 1.7-12.0 % Eosinophils Percent Auto 0.0 0.9-7.0 % Basophils Percent Auto 0.0 0.2-2.0 % Immature Granulocytes Pct Auto 0.7 0.0-0.5 % Neutrophils Absolute Auto 6.8 1.4-6.5 10 3/uL Lymphocytes Absolute Auto 0.5 1.2-3.8 10 3/uL Monocytes Absolute Auto 0.2 0.3-0.8 10 3/uL Eosinophils Absolute Auto 0.0 0.0-0.7 10 3/uL Basophils Absolute Auto 0.0 0.0-0.1 10 3/uL Immature Granulocytes Abs Auto 0.05 0.00-0.03 10 3/uL Performing Lab: see note ML - [facility] LB White Blood Cells Reviewed date:02/27/2025 07:46:31 PM Interpretation: Performing Lab: Notes/Report: [facility] , White Blood Cells See Below For Report White Blood Cells White Blood Cells Many White Blood Cells Performing Lab: see note LC - [facility] LB CBC AUTO DIFF Reviewed date:02/24/2025 04:01:58 PM Interpretation: Performing Lab: Notes/Report: [facility] , White Blood Count 8.6 4.0-11.0 10 3/uL Red Blood Count 4.21 4.70-6.10 10 6/uL Hemoglobin 12.2 14.0-18.0 g/dL Hematocrit 37.7 42.0-54.0 % Mean Corpuscular Volume 89.5 80.0-94.0 fL Mean Corpuscular Hemoglobin 29.0 25.9-34.0 pg Mean Corpuscular HGB Conc 32.4 29.9-35.2 g/dL Red Cell Distribution Width 14.8 11.0-15.0 % Platelet Count 339 150-450 10 3/uL Mean Platelet Volume 9.2 9.5-13.5 fL Neutrophils Percent Auto 90.3 43.0-75.0 % Lymphocytes Percent Auto 8.6 20.5-60.0 % Monocytes Percent Auto 0.3 1.7-12.0 % Eosinophils Percent Auto 0.1 0.9-7.0 % Basophils Percent Auto 0.1 0.2-2.0 % Immature Granulocytes Pct Auto 0.6 0.0-0.5 % Neutrophils Absolute Auto 7.8 1.4-6.5 10 3/uL Lymphocytes Absolute Auto 0.7 1.2-3.8 10 3/uL Monocytes Absolute Auto 0.0 0.3-0.8 10 3/uL Eosinophils Absolute Auto 0.0 0.0-0.7 10 3/uL Basophils Absolute Auto 0.0 0.0-0.1 10 3/uL Immature Granulocytes Abs Auto 0.05 0.00-0.03 10 3/uL Performing Lab: see note ML - [facility] LB Urine Culture, Routine Reviewed date:02/26/2025 09:38:48 PM Interpretation: Performing Lab: Notes/Report: [facility] , Urine Culture, Routine See Below For Report Urine Culture, Routine Urine Culture, Routine Mixed urogenital juanis Urine Culture, Routine Urine Culture, Routine Less than 10,000 colonies/mL Urine Culture, Routine Urine Culture, Routine Performed at: - [facility] [place] Urine Culture, Routine Urine Culture, Routine [address] [place], [place] [id number] Urine Culture, Routine Urine Culture, Routine Accountant Tax: Eitan Damon PhD, Phone: [phone] Urine Culture, Routine Performing Lab: see note LC - [facility] LB SEE REPORT - Sole Dyer Id information not found for OBX-specific digital media producer legend SARS-CoV-2 Ag* Reviewed date:02/24/2025 04:01:58 PM Interpretation: Performing Lab: Notes/Report: [facility] , SARS-CoV-2 Ag NEGATIVE NEGATIVE This test has not been FDA cleared or approved, but has been authorized by the FDA under an Emergency Use Authorization (EUA) for use by authorized laboratories certified under CLIA that meet the requirements to perform moderate or high complexity testing. This test has been authorized only for the detection of proteins from SARS-CoV-2, not for any other viruses or pathogens. The emergency use of this test is authorized for the duration of the declaration that circumstances exist justifying the authorization of emergency use of in vitro diagnostic tests for detection and/or diagnosis of Covid-19 under section 564(b)(1) of the Act, 21 U.S.C. 360bbb-3(b)(1), unless the declaration is terminated or authorization is revoked sooner. Performing Lab: see note ML - [facility] LB LACTATE or LACTIC ACID Reviewed date:02/24/2025 04:01:58 PM Interpretation: Performing Lab: Notes/Report: [facility] , Lactate/Lactic Acid 0.7 0.4-2.0 mmol/L Performing Lab: see note ML - [facility] LB INFLUENZA A AND B AG Reviewed date:02/24/2025 04:01:58 PM Interpretation: Performing Lab: Notes/Report: [facility] , Influenza Virus A Antigen Negative Negative for Flu A protein antigen. Infection due to Flu A cannot be ruled out. Flu A antigen in the sample may be below the detection limit of the test. Influenza Virus B Antigen Negative Negative for Flu B protein antigen. Infection due to Flu B cannot be ruled out. Flu B antigen in the sample may be below the detection limit of the test. Performing Lab: see note ML - [facility] LB PROF CHEM 8 (BAS METB) Reviewed date:02/25/2025 09:27:38 PM Interpretation: Performing Lab: Notes/Report: [facility] , Sodium 144 136-145 mmol/L Potassium 4.2 3.5-5.1 mmol/L Chloride 107 98-107 mmol/L Carbon Dioxide 29.4 21.0-32.0 mmol/L Anion Gap 11.8 Glucose 173 74-106 mg/dL Blood Urea Nitrogen 20.0 7.0-18.0 mg/dL Creatinine 0.93 0.70-1.30 mg/dL Estimated GFR ( Mansi >60 >=60 mL/min/1.73m 2 Estimated GFR (Non- Chaya >60 >=60 mL/min/1.73m 2 BUN Creatinine Ratio 21.5 Calcium 9.0 8.5-10.1 mg/dL Performing Lab: see note ML - [facility] LB CBC AUTO DIFF Reviewed date:02/25/2025 09:27:38 PM Interpretation: Performing Lab: Notes/Report: [facility] , White Blood Count 6.5 4.0-11.0 10 3/uL Red Blood Count 4.10 4.70-6.10 10 6/uL Hemoglobin 12.0 14.0-18.0 g/dL Hematocrit 36.6 42.0-54.0 % Mean Corpuscular Volume 89.3 80.0-94.0 fL Mean Corpuscular Hemoglobin 29.3 25.9-34.0 pg Mean Corpuscular HGB Conc 32.8 29.9-35.2 g/dL Red Cell Distribution Width 15.1 11.0-15.0 % Platelet Count 330 150-450 10 3/uL Mean Platelet Volume 9.1 9.5-13.5 fL Neutrophils Percent Auto 88.7 43.0-75.0 % Lymphocytes Percent Auto 6.7 20.5-60.0 % Monocytes Percent Auto 4.0 1.7-12.0 % Eosinophils Percent Auto 0.0 0.9-7.0 % Basophils Percent Auto 0.0 0.2-2.0 % Immature Granulocytes Pct Auto 0.6 0.0-0.5 % Neutrophils Absolute Auto 5.8 1.4-6.5 10 3/uL Lymphocytes Absolute Auto 0.4 1.2-3.8 10 3/uL Monocytes Absolute Auto 0.3 0.3-0.8 10 3/uL Eosinophils Absolute Auto 0.0 0.0-0.7 10 3/uL Basophils Absolute Auto 0.0 0.0-0.1 10 3/uL Immature Granulocytes Abs Auto 0.04 0.00-0.03 10 3/uL Performing Lab: see note ML - [facility] LB Reason For Referral No Information Medications Medication SIG (Take, Route, Frequency, Duration) Notes Start Date End Date Status Benzonatate 200 MG 1 capsule PRN cough Orally TID for 30 days 01/10/2024 Active predniSONE 10 MG 1 tablet Orally QD for 30 days Take with food Not-Taking Aspirin 81 MG 1 tablet Orally Once a day Active Sodium Chloride 0.9 % as directed Inhalation Active Spiriva Respimat 2.5 MCG/ACT 2 puffs Inhalation QD for 90 days Active Ibuprofen 800 MG 1 tablet with food or milk as needed Orally every 8 hrs Active Ventolin HFA 108 (90 Base) MCG/ACT 2 puffs as needed for SOB Inhalation Q4H for 90 days Active dilTIAZem HCl ER 180 MG 1 tablet Orally Once a day Active Budesonide-Formoterol Fumarate 160-4.5 MCG/ACT 2 puffs Inhalation BID for 90 days Rinse after use Rinse after use Active Pantoprazole Sodium 40 MG 1 tablet Orally Once a day Active Daliresp 500 MCG 1 tablet Orally QD for 90 days Active Mucinex 600 MG 1 tablet as needed Orally every 12 hrs Active Daliresp 500 MCG 1 tablet Orally QD for 90 days Active Immunizations Vaccine Route Administration Date Status Comme nts Arexvy Unknown 08/17/2024 Administered Pageflakes Syringe Pre -Filled 30 mcg/0.3 mL Unknown 09/21/2024 Administered Pneumococcal (Prevnar 20) Unknown 08/17/2024 Administer ed SARS-COV-2 (COVID 19) bivale nt 30 mcg/0.3 ml dose Unknown 09/25/2022 Administered Tdap (Boostrix) Unknown 03/11/2021 Administered ZOSTER (SHINGLES) VACCINE (HZV) Unknown 07/04/2023 Admi nistered ZOSTER (SHINGLES) VACCINE (HZV) Unknown 09/17/2023 Admi nistered Social History Tobacco Use: Social History Observation Description Date Details (start date - stop date) Former Smoker NA - NA Tobacco Control (Standard) Question Answer Notes Tobacco use: Former smoker How long has it been since y ou last smoked? Greater than 10 years Additional Findings: Tobacco non-user Ex -very heavy cigarette smoker (40+/day) Problems Problem Type SNOMED Code ICD Code Onset Dates Problem Status W/U Status Risk Notes Problem 12830268 Essential (primary) hypertension (I10) Active confirmed Problem 94082700 Chronic rhinitis (J31.0) Active confirmed Problem Centrilobular emphysema (60654616) Centrilobular emphysema (J43.2) Active confirmed Prior treatment: Symbicort + Spiriva, Dulera, Breo, Advair Problem 836872337 Chronic obstructive pulmonary disease with (acute) exacerbation (J44.1) Active confirmed Problem Chronic respiratory failure (92400303) Chronic respiratory failure with hypoxia (J96.11) Active confirmed Problem 00758496 Anorexia (R63.0) Active confirmed Problem Long-term current use of inhaled steroid (481242107) 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 (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.51) Active confirmed Problem Pneumonia (674202707) Pneumonia (J18.9) Active confirmed Problem History of pneumothorax (149273429) History of pneumothorax (Z87.09) Active confirmed Left spontaneous pneumothorax, s/p thoracostomy tube 2012 Problem Leukocytosis (922609597) Leukocytosis (D72.829) Active confirmed Problem Malnutrition (3738418) Malnutrition (E46) Active confirmed Problem Ex-tobacco user (finding) (307477536) History of tobacco abuse (Z87.891) Active confirmed 2ppd x40 years, quit 11/2015 Problem 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 Problem Atelectasis (80211502) Collapse of lung tissue (J98.11) Active confirmed Vital Signs Heart Rate 95 /min 05/20/2025 Weight reported by patient Temperature 96.9 degrees Fahrenheit 05/20/2025 Weig ht reported by patient Respiratory Rate 18 /min 05/20/2025 Weight repo rted by patient Blood pressure diastolic 50 mm Hg 05/20/2025 Ben ght reported by patient Oximetry 94 % 05/20/2025 Weight reported by patient Height 69 in 05/20/2025 Weight reported by patient Blood pressure systolic 104 mm Hg 05/20/2025 Weig ht reported by patient Weight 130.0 lbs 05/20/2025 Weight reported by patient BMI 19.2 kg/m2 05/20/2025 Weight reported by patient Encounters Encounter Location Date Provider Diagnosis [facility] [place] [address] [place] [address] 08/08/2024 Josué Shea Chronic respiratory failure with hypoxia J96.11 ; Centrilobular emphysema J43.2 ; Collapse of lung tissue J98.11 ; 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 ; 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 Z79.51 ; retirement (current) use of systemic steroids Z79.52 ; History of tobacco abuse Z87.891 ; History of pneumothorax Z87.09 ; Encounter for screening for malignant neoplasm of respiratory organs Z12.2 and Encounter for immunization Z23 [facility] [place] [address] [place] [address] 05/20/2025 [facility] Chronic respiratory failure with hypoxia J96.11 ; Centrilobular emphysema J43.2 ; History of tobacco abuse Z87.891 ; Collapse of lung tissue J98.11 ; 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 ; retirement (current) use of inhaled steroids Z79.51 and History of pneumothorax Z87.09 [facility] [place] [address] [place] [address] 01/24/2025 [facility] Pulmonary [facility] [address] [place] [address] 03/25/2025 [facility] Pulmonary [facility] [address] [place] [address] 04/23/2025 [facility] Assessments Encounter Date Diagnosis (ICD Code) Assessment Notes Treatment Notes Treatment Clinical Notes Section Notes 08/08/2024 Chronic respiratory failure with hypoxia (ICD-10 - J96.11) Johh-[id number] encounter performed with the patient to document continued need for supplemental oxygen (O2). He brought his O2 to the office today, more out of spite in my opinion just because I told him he needs it. He is also increasing flow to 4L/min to make it run out faster to get a new tank? I explained to him that he needs. Still has hypoxic episodes at home; he admits that his saturations dropped to 87% on room air when walking around at home. Explained that increasing O2 arbitrarily can be detrimental and sometimes contribute to increased carbon oxide retention. He was instructed to use the oxygen as prescribed. 05/20/2025 Chronic respiratory failure with hypoxia (ICD-10 - J96.11) [id number] encounter performed with the patient to document [...] but on hold d/t more recent issues. 08/08/2024 Centrilobular emphysema (ICD-10 - J43.2) Prior treatment: Symbicort + Spiriva, Dulera, Breo, Advair Remains on Symbicort + Spiriva and daily prednisone. Continue current treatment. 08/08/2024 Collapse of lung tissue (ICD-10 - J98.11) Chronic RML collapse. Infiltrate in December is improved on March imaging. 08/08/2024 Azygos lobe of lung (ICD-10 - Q33.1) 05/20/2025 Collapse of lung tissue (ICD-10 - J98.11) Chronic RML collapse. 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 08/08/2024 termite exterminator helper (current) use of systemic steroids (ICD-10 - Z79.52) Discussed adverse effects of skilled nursing systemic steroids including, but not limited to: increased risk of cataracts, elevated blood sugars/worsening of underlying diabetes mellitus, impaired wound healing, gastrointestinal ulcers, osteoporosis. 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 05/20/2025 History of pneumothorax (ICD-10 - Z87.09) Left spontaneous pneumothorax, s/p thoracostomy tube 201208/08/2024 History of tobacco abuse (ICD-10 - Z87.891) 2ppd x40 years, quit 11/2015 Will resume annual LDCT testing - due March 2025. 08/08/2024 History of pneumothorax (ICD-10 - Z87.09) Left spontaneous pneumothorax, s/p thoracostomy tube 201208/08/2024 Encounter for screening for malignant neoplasm of respiratory organs (ICD-10 - Z12.2) 08/08/2024 Encounter for immunization (ICD-10 - Z23) Had an extended discussion regarding vaccines. Please see HPI. His thought process does not make logical sense regarding pneumococcal vaccine. After exposing the falicy of his argument, he voiced agreement to proceed with Prevnar 20 along with Arexvy (RSV), but he stated he still would not get the influenza vaccine. I explained that for him, influenza and COVID vaccines are recommended given his severe pulmonary disease, but ultimately it is his choice whether or not to get them. 08/08/2024 Other 05/20/2025 Other Plan Of Treatment Future Test Test Name Order Date CT Chest Low Dose for Screening* 024 Insurance Providers Payer Name Payer Address Payer Phone Subscriber Number Group Number Insured Name Patient Relationship to Insured Coverage Start Date Coverage End Date ANTHEM MEDIBLUE DUAL ADV PRIMARY MEDICARE [address] [place] [address] [id number] [facility] Ted Rajput Self - patient is the insured 4 MEDICAID [place] 2ND INS [address] [place], [place] [id number] Ted Rajput Self - patient is the insured Medical (General) History Medical History History ICD Code Centrilobular emphysema J43.2 Chronic respiratory failure with hypoxia J96.11 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 Collapse of lung tissue J98.11 Adenomatous polyp of rectum D12.8 Gastroesophageal reflux disease K21.9 Atrial fibrillation, unspecified I48.91 Bilateral carpal tunnel syndrome G56.03 Chronic lumbar radiculopathy M54.16 Gout M10.9 Hyperlipidemia E78.5 retirement (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) use of inhaled stero 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
--- OUTSIDE RECORDS SUMMARY | 2025-06-05 08:38 | XMS_ITS | Encounter Summary ---
Author Organization [facility] Address [address] [place] [address] Care Team Providers Care Inserting Operator Name Role Phone Kathie Sánchez MONOTYPE MECHANIC Unavailable [phone] Kathie Sánchez MONOTYPE MECHANIC Unavailable [phone] Curt De Dios MD Primary Care Provider [phone] Kathie Sánchez NP Unavailable [phone] Andrade Pendleton OD Unavailable Encounter Details Date Type Department Care Team (Late st Contact Info) Description 03/12/2025 Abstract [facility] [address] [place] [address] Unallocated, Noms Provider, [address] [place], [place] [id number] Social History Tobacco Use Types Packs/Day Years [...] often do you attend chur ch or synagogue services? Never 02/28/2024 Do you belong to any clubs o r organizations such as mandaeism groups, unions, fraternal or athletic groups, or [...] Recorded Patient Health Questionnaire-2 Score 0 02/28/2024 [facility] - Occupational Stress [...] place to sleep or slept in a custodial (including now)? No 02/28/2024 Sex and Gender [...] documented as of this encounter Care Teams Inserting Operator Relationship Specialty Start Date End Date Kathie Sánchez NP [address] [place] [address] PCP - Crow LAFLEUR 12/29/23 Curt De Dios MD [address] [place] [address] PCP - General Family Medicine 02/28/24 05/01/25 Kathie Sánchez NP [address] [place] [address] Nurse Practitioner Family Medicine 10/03/23 Kathie Sánchez NP [address] [place] [address] Nurse Practitioner Family Medicine 02/28/24 Andrade Pendleton OD [address] [place] [phone] Referring Physician Optometry 01/02/25 documented as of this encounter
--- OUTSIDE RECORDS SUMMARY | 2025-06-05 08:38 | XMS_ITS | Encounter Summary ---
Author Organization [facility] Address [address] [place] [address] Care Team Providers Care Flask Pusher Name Role Phone Kathie Sánchez NP Unavailable [phone] Kathie Sánchez NP Unavailable [phone] Curt De Dios MD Primary Care Provider [phone] Kathie Sánchez NP Unavailable [phone] Lissa Garza MA Unavailable [phone] Andrade Pendleton OD Unavailable Encounter Details Date Type Department Care Team (Late st Contact Info) Description 09/17/2024 Clinisync Result Encounter [facility] External Department Unsolicited Kathie Sánchez NP [address] [place] [address] Social History Tobacco Use Types Packs/Day Years [...] often do you attend chur ch or episcopalian services? Never 02/28/2024 Do you belong to any clubs o r organizations such as uatsdin groups, unions, fraternal or athletic groups, or [...] Recorded Patient Health Questionnaire-2 Score 0 02/28/2024 [facility] - Occupational [...] place to sleep or slept in a longterm (including now)? No 02/28/2024 Sex and Gender Information Value Date Recorded Sex Assigned at Not on file Legal Sex Male 7:47 PM EDT Gender Identity Not on file Sexual Orientation Not on file documented as of this encounter Plan of Treatment Not on file documented as of this encounter Procedures Procedure Name Priority Date/Time Associated Diagnosis Comments XR CERVICAL SPINE 2-3V 09/17/2024 2:00 PM EDT documented in this encounter Results * XR CERVICAL SPINE 2-3V (09/17/2024 2:00 PM EDT) Anatomical Region Laterality Modality Other 09/17/2024 2:00 PM EDT Narrative 09/17/2024 2:03 PM EDT The [address] [address] XRay Report Signed Patient: ALPHONSE STEARNS MR#: [id number] : 1960 Acct:[id number] Age/Sex: 64 / M ADM Date: 09/14/24 Loc: RAD Attending Dr: Kathie Sánchez CASE FOLDER Ordering Physician: Kathie Sánchez NP Date of Service: 09/14/24 Procedure(s): XR cervical spine 2-3V Accession Number(s): [id number] cc: Kathie Sánchez NP The [place] [address] Patient Name: ALPHONSE STEARNS MRN: [id number] date: 1960 Sex: M Assigned Patient Location: RAD Current Patient Location: Accession/Order Number: [id number] Exam Date: 09/14/2024 09:38 Report Date: 09/17/2024 14:00 At the request of: KATHIE SÁNCHEZ Procedure: XR cervical spine 2-3V EXAMINATION: XR cervical spine 2-3V HISTORY: Degenerative Disc Disease Cervical COMPARISON: 10/04/2023 FINDINGS: BONES: 4 mm anterolisthesis of C4 on C5. Mild to moderate spondylosis. Moderate facet osteoarthropathy. DISC SPACES: Altered level disc space narrowing PARASPINOUS: Negative. No paraspinous abnormality is seen. OTHER: Negative. XR/XR cervical spine 2-3V IMPRESSION: Stable moderate degenerative changes and L4 anterolisthesis Electronically authenticated by: OK CISNEROS Date: 09/17/2024 14:00 Dictated By: Ok Cisneros M.D. Signed By: 09/17/24 1403 DD/ 1400 TD/TT: Stave Inspector: Procedure Note Radiology, Radiologist, MD - 09/17/2024 [place] [address] XRay Report Signed Patient: ALPHONSE STEARNS WMR#: [id number] : 1960cct:[id number] Age/Sex: 64 / MADM Date: 09/14/24 Loc: RAD Attending Dr: Kathie Sánchez CASE FOLDER Ordering Physician: Kathie Sánchez NP Date of Service: 09/14/24 Procedure(s): XR cervical spine 2-3V Accession Number(s): [id number] cc: Kathie Sánchez NP [address] [address] Patient Name: ALPHONSE STEARNS MRN: [id number] date: 1960 Sex: M Assigned Patient Location: [facility] Current Patient Location: Accession/Order Number: [id number] Exam Date: 09/14/2024 09:38 Report Date: 09/17/2024 14:00 At the request of: KATHIE SÁNCHEZ Procedure: XR cervical spine 2-3V EXAMINATION: XR cervical spine 2-3V HISTORY: Degenerative Disc Disease Cervical COMPARISON: 10/04/2023 FINDINGS: BONES: 4 mm anterolisthesis of C4 on C5. Mild to moderate spondylosis. Moderate facet osteoarthropathy. DISC SPACES: Altered level disc space narrowing PARASPINOUS: Negative. No paraspinous abnormality is seen. OTHER: Negative. XR/XR cervical spine 2-3V IMPRESSION: Stable moderate degenerative changes and L4 anterolisthesis Electronically authenticated by: OK CISNEROS Date: 09/17/2024 14:00 Dictated By: Ok Cisneros M.D. Signed By:09/17/24 1403 DD/ 1400 TD/TT: Stave Inspector: Kathie Sánchez NP [facility] Final Result documented in this encounter Visit Diagnoses Not on filedocumented in this encounter Additional Health Concerns Assessment Noted Time PHQ-9 Depression Total Score: 2 02/28/20 10:39 AM EDT A fall risk assessment has been complete d for the patient 02/28/2024 10:39 AM EDT documented as of this encounter Care Teams Flask Pusher Relationship Specialty Start Date End Date Kathie Sánchez NP [address] [place] [address] PCP - Crow LAFLEUR 12/29/23 Curt De Dios MD [address] [place] [phone] PCP - General Family Medicine 02/28/24 05/01/25 Kathie Sánchez NP [address] [place] [address] Nurse Practitioner Family Medicine 10/03/23 Kathie Sánchez NP [address] [place] [address] Nurse Practitioner Family Medicine 02/28/24 Lissa Garza MA [address] [place] [address] Family Medicine 12/05/24 03/06/25 Andrade Pendleton OD [address] [place] [address] Referring Physician Optometry 01/02/25 documented as of this encounter
--- OUTSIDE RECORDS SUMMARY | 2025-06-05 08:38 | XMS_ITS | Encounter Summary ---
Author Organization [facility] Address [address] [facility] [place] [address] Care Team Providers Care Printed Circuit Layout Taper Name Role Phone Kathie Sánchez NP Unavailable [phone] Kathie Sánchez NP Unavailable [phone] Curt De Dios MD Primary Care Provider [phone] Kathie Sánchez NP Unavailable [phone] Lissa Garza MA Unavailable [phone] Andrade Pendleton OD Unavailable Encounter Details Date Type Department Care Team (Late st Contact Info) Description 09/17/2024 Orders Only [facility] [address] [place] [address] Kathie Snáchez GOLF SALES ASSOCIATE [address] [place] [address] Social History Tobacco Use Types Packs/Day Years [...] often do you attend chur ch or taoism services? Never 02/28/2024 Do you belong to any clubs o r organizations such as oriental orthodox groups, unions, fraternal or athletic groups, [...] Recorded Patient Health Questionnaire-2 Score 0 02/28/2024 [facility]ational Stress Questionnaire Answer [...] place to sleep or slept in a snf (including now)? No 02/28/2024 Sex and Gender Information Value Date Recorded Sex Assigned at Not on file Legal Sex Male 7:47 PM EDT Gender Identity Not on file Sexual Orientation Not on file documented as of this encounter Plan of Treatment Not on file documented as of this encounter Procedures Procedure Name Priority Date/Time Associated Diagnosis Comments XR CERVICAL SPINE 2-3 VIEWS Routine 09/17/2024 2:58 PM EDT documented in this encounter Results * XR cervical spine 2 or 3 views (09/17/2024 2:58 PM EDT) Anatomical Region Laterality Modality Spine, C-spine Radiographic Veronique ging us Kathie Sánchez NP IMG XR PROCEDURES Final Result documented in this encounter Visit Diagnoses Not on filedocumented in this encounter Additional Health Concerns Assessment Noted Time PHQ-9 Depression Total Score: 2 02/28/20 24 10:39 AM EDT A fall risk assessment has been complete d for the patient 02/28/2024 10:39 AM EDT documented as of this encounter Care Teams Printed Circuit Layout Taper Relationship Specialty Start Date End Date Kathie Sánchez NP [address] [place] [phone] PCP - Crow LAFLEUR 12/29/23 Curt De Dios MD [address] [place] [address] PCP - General Family Medicine 02/28/24 05/01/25 Kathie Sánchez NP [address] [place] [address] Nurse Practitioner Family Medicine 10/03/23 Kathie Sánchez NP [address] [place] [address] Nurse Practitioner Family Medicine 02/28/24 Lissa Garza MA [address] [place] [address] Family Medicine 12/05/24 03/06/25 Andrade Pendleton OD [address] [place] [phone] Referring Physician Optometry 01/02/25 documented as of this encounter
--- OUTSIDE RECORDS SUMMARY | 2025-06-05 08:38 | XMS_ITS | Encounter Summary ---
Author Organization [facility] Address [address] [facility] [place] [address] Care Team Providers Care Overnight Stocker Name Role Phone Kathie Sánchez NP Unavailable [phone] Kathie Sánchez NP Unavailable [phone] Curt De Dios MD Primary Care Provider Kathie Sánchez NP Unavailable [phone] Lissa Garza MA Unavailable [phone] Andrade Pendleton OD Unavailable Encounter Details Date Type Department Care Team (Late st Contact Info) Description 11/29/2024 Orders Only [facility] [address] [place] [address] Kathie Sánchez EDGE MOLDER [address] [place] [address] Social History Tobacco Use Types Packs/Day Years [...] often do you attend chur ch or anabaptist services? Never 02/28/2024 Do you belong to any clubs o r organizations such as adventism groups, unions, fraternal or athletic groups, or [...] Recorded Patient Health Questionnaire-2 Score 0 02/28/2024 [facility] Questionnaire Answer [...] place to sleep or slept in a long-term (including now)? No 02/28/2024 Sex and Gender Information Value Date Recorded Sex Assigned at Not on file Legal Sex Male 7:47 PM EDT Gender Identity Not on file Sexual Orientation Not on file documented as of this encounter Plan of Treatment Not on file documented as of this encounter Procedures Procedure Name Priority Date/Time Associated Diagnosis Comments XR CHEST 2 VIEWS Routine 11/29/2024 10:15 AM EST documented in this encounter Results * XR chest 2 views (11/29/2024 10:15 AM EST) Anatomical Region Laterality Modality Chest Radiographic Veronique ging us Kathie Sánchez NP IMG XR PROCEDURES Final Result documented in this encounter Visit Diagnoses Not on filedocumented in this encounter Additional Health Concerns Assessment Noted Time PHQ-9 Depression Total Score: 2 02/28/20 10:39 AM EDT A fall risk assessment has been complete d for the patient 02/28/2024 10:39 AM EDT documented as of this encounter Care Teams Overnight Stocker Relationship Specialty Start Date End Date Kathie Sánchez NP [address] [place] [phone] PCP - Crow LAFLEUR 12/29/23 Curt De Dios MD [address] [place] [phone] PCP - General Family Medicine 02/28/24 05/01/25 Kathie Sánchez NP [address] [place] [address] Nurse Practitioner Family Medicine 10/03/23 Kathie Sánchez NP [address] [place] [phone] Nurse Practitioner Family Medicine 02/28/24 Lissa Garza MA [address] [place] [address] Family Medicine 12/05/24 03/06/25 Andrade Pendleton OD [address] [place] [address] Referring Physician Optometry 01/02/25 documented as of this encounter
--- OUTSIDE RECORDS SUMMARY | 2025-06-05 08:38 | XMS_ITS | Continuity of Care Document ---
Author Organization [facility] Address [address] [place] [address] Insurance Providers Payer Plan Claims Address Claims Phone Policy Number Group Number Relation Employer Guarantor Name Guarantor Guarantor Address Guarantor Phone [employer] [address], [place] [address] tel:[phone] [id number] [employer] AGE [employer] are [employer] [address], [place] [address] tel:[phone] [id number] [employer] Advant age HMO [employer] ARE [employer] HMO [address], [place] [address] tel:[phone] [id number] Problems Condition ICD9 code ICD10 code SNOMED code Start Date End Date S tatus Chronic obstructive pulmonary disease with (acute) exacerbation J44.1 03/01/2025 Acti ve Chronic respiratory failure with hypoxia J96.11 03/01/2025 Acti ve Acute and chronic respiratory failure with hypoxia J96.21 03/01/2025 Active Unspecified protein-calorie malnutrition E46 03/01/2025 Active Fracture of unspecified part of neck of unspecified femur, subsequent encounter for closed fracture with routine healing S72.009D 03/01/2025 Active Pneumonia, unspecified organism J18.9 03/01/2025 Active Acute upper respiratory infection, unspecified J06.9 03/01/2025 Ac tive Paroxysmal atrial fibrillation I48.0 03/01/2025 Active Anemia, unspecified D64.9 03/01/2025 A ctive Gastro-esophageal reflux disease without esophagitis K21.9 03/01/2025 Active Noninfective gastroenteritis and colitis, unspecified K52.9 03/01/2025 Acti ve Pain in thoracic spine M54.6 03/01/2025 Active Essential (primary) hypertension I10 03/01/2025 Active Dysphagia, oropharyngeal phase R13.12 03/04/2025 Active Cognitive communication deficit R41.841 03/04/2025 Active Muscle weakness (generalized) M62.81 03/04/2025 Active Difficulty in walking, not elsewhere classified R26.2 03/04/2025 Active Primary insomnia F51.01 03/01/2025 Acti ve Depression, unspecified F32.A 03/06/2025 Active Abdominal aortic aneurysm, without rupture, unspecified I71.40 03/14/2025 Acti ve Results Test Value / Unit Interpretation Reference Ran ge Tuberculosis reaction wheal[ 74939-7] Tuberculosis reaction wheal [55186-5] 0 mm NEG Tuberculosis reaction wheal[ 35235-9] Tuberculosis reaction wheal [20386-5] See note TB test Tuberculosis reaction wheal[ 96406-7] Tuberculosis reaction wheal [87849-0] 0 mm NEG Allergies, adverse reactions, alerts No known allergies and adverse reactions Medications Medication Instructions Route Dosage Frequency Start Date Stop Date Indications Status albuterol sulfate 2.5 mg /3 mL (0.083 %) solution for nebulization (albuterol sulfate) 3ml, inhalation, Every 6 Hours - PRN, as needed for SOB or wheezing inhalatio n 1.0 6.0 h 03/21 Active albuterol sulfate 90 mcg/actuation HFA aerosol inhaler (albuterol sulfate) 2 inh, inhalation, Every 4 Hours - PRN, as needed for SOB or wheezing inhalatio n 1.0 4.0 h 2024 Active aspirin 81 mg tablet,delayed release (DR/EC) (aspirin) 1 tab, oral, Once A Day oral 1.0 1.0 d 2024 Paroxysmal atrial fibrillation Active budesonide-form oterol 160-4.5 mcg/actuation HFA aerosol inhaler (budesonide-for moterol) 2 inh, inhalation, Twice A Day inhalatio n 1.0 12.0 h 2024 Chronic respiratory failure with hypoxia Active cefdinir 300 mg capsule (cefdinir) 1 capsule, oral, Twice A Day oral 1.0 12.0 h 03/01 Pneumonia, unspecified organism Active cefdinir 300 mg capsule (cefdinir) 1 capsule, oral, Twice A Day oral 1.0 12.0 h 03/10 Pneumonia, unspecified organism Active cyclosporine 0.05 % dropperette (cyclosporine) 1 drop, ophthalmic (eye), Twice A Day, for tear production 1.0 12.0 h 2024 Active diltiazem HCl 180 mg capsule,ext.rel 24h degradable (diltiazem HCl) 1 capsule, oral, Once A Day oral 1.0 1.0 d 2024 Essential (primary) hypertension Active ibuprofen 800 mg tablet (ibuprofen) 1 tab, oral, Every 8 Hours - PRN, for pain oral 1.0 8.0 h 2024 Active levofloxacin 750 mg tablet (levofloxacin) 1 tablet, oral, Once A Day oral 1.0 1.0 d 03/01 Pneumonia, unspecified organism Active levofloxacin 750 mg tablet (levofloxacin) 1 tablet, oral, Once A Day oral 1.0 1.0 d 03/07 Pneumonia, unspecified organism Active metoclopramide HCl 10 mg tablet (metoclopramide HCl) 1 tab, oral, Every 8 Hours - PRN, as needed for nausea and vomiting oral 1.0 8.0 h 03/08 Active pantoprazole 40 mg tablet,delayed release (DR/EC) (pantoprazole) 1 tab, oral, Once A Day oral 1.0 1.0 d 2024 Gastro-esopha geal reflux disease without esophagitis Active prednisone 50 mg tablet (prednisone) 1 tablet, oral, Once A Day oral 1.0 1.0 d 03/01 Chronic obstructive pulmonary disease with (acute) exacerbation Active prednisone 50 mg tablet (prednisone) 1 tablet, oral, Once A Day oral 1.0 1.0 d 03/05 Chronic obstructive pulmonary disease with (acute) exacerbation Active roflumilast 500 mcg tablet (roflumilast) 1 tab, oral, Once A Day oral 1.0 1.0 d 2024 Chronic obstructive pulmonary disease with (acute) exacerbation Active Colace (docusate sodium) 100 mg capsule (Colace (docusate sodium)) 1 cap, oral, Twice A Day, constipation oral 1.0 12.0 h 2024 Active melatonin 5 mg tablet (melatonin) 1 tab, oral, At Bedtime, insomnia oral 1.0 03/04 Active hydroxyzine HCl 25 mg tablet (hydroxyzine HCl) 1 tab, oral, Three Times A Day - PRN, anxiety oral 1.0 8.0 h 03/06 Active Remeron (mirtazapine) 15 mg tablet (Remeron (mirtazapine)) 15mg, oral, At Bedtime, for appetite and depression oral 1.0 03/25 Depression, unspecified Active hydroxyzine HCl 25 mg tablet (hydroxyzine HCl) 1 tab, oral, Three Times A Day - PRN, anxiety oral 1.0 8.0 h 03/19 Active ondansetron HCl 4 mg tablet (ondansetron HCl) 4mg, oral, Three Times A Day oral 1.0 8.0 h 2024 Active trazodone 50 mg tablet (trazodone) 25mg, oral, At Bedtime, Give half tab to equal 25mg oral 1.0 03/11 Active Miralax (polyethylene glycol 3350) 17 gram/dose powder (Miralax (polyethylene glycol 3350)) 17 gram, oral, Once A Day oral 1.0 1.0 d 2024 Active trazodone 50 mg tablet (trazodone) 50mg, oral, At Bedtime, Give half tab to equal 25mg oral 1.0 03/12 Active trazodone 50 mg tablet (trazodone) 50mg, oral, At Bedtime oral 1.0 2024 Primary insomnia Active Spikevax 3978-7582(12y up)(PF) (covid vac 24-25(12up)(mod )(pf)) 50 mcg/0.5 mL syringe (Spikevax 7179-5302(12y up)(PF) (covid vac 24-25(12up)(mod )(pf))) 0.5ml, intramuscular , Once - One Time intramusc ular 1.0 03/20 Active albuterol sulfate 2.5 mg /3 mL (0.083 %) solution for nebulization (albuterol sulfate) 3ml, inhalation, Every 2 Hours - PRN, shortness of breath inhalatio n 1.0 2.0 h 2024 Chronic obstructive pulmonary disease with (acute) exacerbation Active ipratropium-alb uterol 0.5 mg-3 mg(2.5 mg base)/3 mL solution for nebulization (ipratropium-al buterol) 3ml, inhalation, Every 6 Hours inhalatio n 1.0 6.0 h 03/22 Chronic obstructive pulmonary disease with (acute) exacerbation Active Spikevax 3780-7362(12y up)(PF) (covid vac 24-25(12up)(mod )(pf)) 50 mcg/0.5 mL syringe (Spikevax 0260-0826(12y up)(PF) (covid vac 24-25(12up)(mod )(pf))) 0.5ml, intramuscular , Once - One Time intramusc ular 1.0 03/20 Active ipratropium-alb uterol 0.5 mg-3 mg(2.5 mg base)/3 mL solution for nebulization (ipratropium-al buterol) 3ml, inhalation, Four Times A Day, 4 times daily while awake inhalatio n 1.0 6.0 h 2024 Chronic obstructive pulmonary disease with (acute) exacerbation Active buspirone 10 mg tablet (buspirone) 10 mg, oral, Three Times A Day oral 1.0 8.0 h 2024 Active Remeron (mirtazapine) 30 mg tablet (Remeron (mirtazapine)) 30mg, oral, At Bedtime oral 1.0 2024 Active Flonase Allergy Relief (fluticasone propionate) 50 mcg/actuation spray,suspensio n (Flonase Allergy Relief (fluticasone propionate)) one spray each nostril, nasal, Once A Day nasal 1.0 1.0 d 2024 Chronic obstructive pulmonary disease with (acute) exacerbation Active Mucinex (guaifenesin) 600 mg tablet extended release 12hr (Mucinex (guaifenesin)) 600 mg, oral, Twice A Day oral 1.0 12.0 h 2024 Chronic obstructive pulmonary disease with (acute) exacerbation Active Vital Signs Date Vital Result Comment 03/01/2025 02:19 PM Oxygen Saturation 92 % 03/01/2025 01:55 PM Temperature 98.5 [degF] Oxygen Saturation 92 % Respiratory Rate 22 /min Heart Rate 148 /min Blood Pressure Systolic 160 mm[Hg] Blood Pressure Diastolic 70 mm[Hg] 03/01/2025 01:56 PM Body Height 67 [in_us] 03/01/2025 01:53 PM Temperature 98.5 [degF] Oxygen Saturation 92 % Respiratory Rate 22 /min Heart Rate 148 /min Blood Pressure Systolic 160 mm[Hg] Blood Pressure Diastolic 70 mm[Hg] 03/01/2025 10:44 PM Temperature 98.3 [degF] Oxygen Saturation 95 % Respiratory Rate 24 /min Heart Rate 130 /min Blood Pressure Systolic 158 mm[Hg] Blood Pressure Diastolic 75 mm[Hg] 03/02/2025 08:35 AM Oxygen Saturation 96 % 03/02/2025 10:46 AM Temperature 98.2 [degF] Respiratory Rate 16 /min Heart Rate 96 /min Blood Pressure Systolic 150 mm[Hg] Blood Pressure Diastolic 70 mm[Hg] 03/02/2025 10:47 AM Oxygen Saturation 98 % 03/03/2025 02:16 AM Temperature 98.4 [degF] Oxygen Saturation 101 % Respiratory Rate 16 /min Heart Rate 16 /min Blood Pressure Systolic 165 mm[Hg] Blood Pressure Diastolic 87 mm[Hg] 03/03/2025 08:20 AM Oxygen Saturation 99 % 03/03/2025 08:21 AM Temperature 98.1 [degF] Respiratory Rate 16 /min Heart Rate 16 /min Blood Pressure Systolic 145 mm[Hg] Blood Pressure Diastolic 82 mm[Hg] 03/03/2025 08:23 AM Oxygen Saturation 98 % 03/03/2025 12:24 PM Oxygen Saturation 98 % 03/04/2025 12:33 AM Temperature 98.2 [degF] Oxygen Saturation 96 % Respiratory Rate 18 /min Heart Rate 100 /min Blood Pressure Systolic 169 mm[Hg] Blood Pressure Diastolic 86 mm[Hg] 03/04/2025 09:56 AM Temperature 98.5 [degF] Oxygen Saturation 96 % Respiratory Rate 20 /min Heart Rate 118 /min Blood Pressure Systolic 120 mm[Hg] Blood Pressure Diastolic 70 mm[Hg] 03/04/2025 12:30 PM Heart Rate 100 /min 03/04/2025 06:49 PM Oxygen Saturation 96 % 03/04/2025 02:38 PM Body Weight 127 [lb_av] Body Mass Index 19.89 kg/m2 03/04/2025 11:56 PM Temperature 98.4 [degF] Oxygen Saturation 98 % Respiratory Rate 18 /min Heart Rate 82 /min Blood Pressure Systolic 122 mm[Hg] Blood Pressure Diastolic 80 mm[Hg] 03/05/2025 01:24 PM Oxygen Saturation 97 % 03/06/2025 05:46 AM Temperature 98.4 [degF] Oxygen Saturation 97 % Respiratory Rate 18 /min Heart Rate 78 /min Blood Pressure Systolic 161 mm[Hg] Blood Pressure Diastolic 86 mm[Hg] 03/06/2025 02:49 PM Oxygen Saturation 98 % 03/07/2025 01:19 AM Temperature 98.2 [degF] 03/07/2025 01:18 AM Oxygen Saturation 97 % 03/07/2025 01:21 AM Oxygen Saturation 98 % Respiratory Rate 18 /min Heart Rate 80 /min Blood Pressure Systolic 140 mm[Hg] Blood Pressure Diastolic 82 mm[Hg] 03/07/2025 12:40 PM Oxygen Saturation 97 % 03/08/2025 07:53 AM Temperature 97.9 [degF] Oxygen Saturation 96 % Respiratory Rate 18 /min Heart Rate 78 /min Blood Pressure Systolic 136 mm[Hg] Blood Pressure Diastolic 84 mm[Hg] 03/08/2025 08:57 AM Oxygen Saturation 95 % 03/08/2025 01:50 PM Oxygen Saturation 95 % 03/09/2025 06:23 AM Temperature 98.4 [degF] Oxygen Saturation 94 % Respiratory Rate 16 /min Heart Rate 88 /min Blood Pressure Systolic 129 mm[Hg] Blood Pressure Diastolic 67 mm[Hg] 03/09/2025 05:33 PM Oxygen Saturation 93 % 03/09/2025 05:32 PM Oxygen Saturation 93 % 03/09/2025 11:48 PM Oxygen Saturation 94 % 03/10/2025 06:31 AM Temperature 98.3 [degF] Respiratory Rate 18 /min Heart Rate 82 /min Blood Pressure Systolic 130 mm[Hg] Blood Pressure Diastolic 70 mm[Hg] 03/10/2025 01:49 PM Oxygen Saturation 96 % 03/11/2025 12:27 AM Temperature 97.3 [degF] Respiratory Rate 16 /min Heart Rate 72 /min Blood Pressure Systolic 138 mm[Hg] Blood Pressure Diastolic 80 mm[Hg] 03/11/2025 12:25 AM Oxygen Saturation 95 % 03/11/2025 08:39 AM Oxygen Saturation 95 % 03/12/2025 02:33 AM Temperature 97.7 [degF] Oxygen Saturation 96 % Respiratory Rate 16 /min Heart Rate 74 /min Blood Pressure Systolic 103 mm[Hg] Blood Pressure Diastolic 68 mm[Hg] 03/12/2025 08:56 AM Oxygen Saturation 97 % 03/13/2025 01:18 AM Temperature 99.2 [degF] Oxygen Saturation 92 % Respiratory Rate 16 /min Heart Rate 86 /min Blood Pressure Systolic 124 mm[Hg] Blood Pressure Diastolic 65 mm[Hg] 03/13/2025 08:51 AM Oxygen Saturation 93 % 03/13/2025 03:20 PM Oxygen Saturation 93 % 03/14/2025 01:36 AM Temperature 98.6 [degF] Oxygen Saturation 90 % Respiratory Rate 16 /min Heart Rate 88 /min Blood Pressure Systolic 113 mm[Hg] Blood Pressure Diastolic 55 mm[Hg] 03/14/2025 02:44 PM Oxygen Saturation 92 % 03/14/2025 12:46 PM Body Weight 126 [lb_av] Body Mass Index 19.73 kg/m2 03/14/2025 10:51 PM Oxygen Saturation 93 % 03/15/2025 01:47 AM Temperature 98.4 [degF] Oxygen Saturation 94 % Respiratory Rate 16 /min Heart Rate 93 /min Blood Pressure Systolic 128 mm[Hg] Blood Pressure Diastolic 80 mm[Hg] 03/15/2025 12:05 PM Body Weight 124 [lb_av] Body Mass Index 19.42 kg/m2 03/15/2025 01:52 PM Oxygen Saturation 93 % 03/15/2025 12:02 PM Body Weight 124 [lb_av] Body Mass Index 19.42 kg/m2 03/15/2025 10:52 PM Oxygen Saturation 92 % 03/16/2025 02:55 AM Temperature 98 [degF] Respiratory Rate 18 /min Heart Rate 84 /min Blood Pressure Systolic 132 mm[Hg] Blood Pressure Diastolic 69 mm[Hg] 03/16/2025 09:05 AM Oxygen Saturation 93 % 03/17/2025 03:21 AM Temperature 98.4 [degF] Oxygen Saturation 94 % Respiratory Rate 18 /min Heart Rate 99 /min Blood Pressure Systolic 132 mm[Hg] Blood Pressure Diastolic 68 mm[Hg] 03/17/2025 09:10 AM Oxygen Saturation 95 % 03/17/2025 11:39 PM Temperature 98.2 [degF] Oxygen Saturation 95 % Respiratory Rate 18 /min Heart Rate 95 /min Blood Pressure Systolic 126 mm[Hg] Blood Pressure Diastolic 76 mm[Hg] 03/18/2025 03:02 PM Oxygen Saturation 96 % 03/18/2025 09:58 PM Oxygen Saturation 94 % 03/18/2025 11:54 PM Temperature 98.4 [degF] Respiratory Rate 20 /min Heart Rate 96 /min Blood Pressure Systolic 137 mm[Hg] Blood Pressure Diastolic 93 mm[Hg] 03/18/2025 11:53 PM Oxygen Saturation 95 % 03/19/2025 01:23 PM Oxygen Saturation 95 % 03/19/2025 06:52 PM Oxygen Saturation 95 % 03/19/2025 11:44 PM Temperature 98.1 [degF] Oxygen Saturation 96 % Respiratory Rate 16 /min Heart Rate 100 /min Blood Pressure Systolic 109 mm[Hg] Blood Pressure Diastolic 74 mm[Hg] 03/20/2025 08:47 AM Oxygen Saturation 93 % 03/20/2025 12:49 PM Body Weight 126.4 [lb_av] Body Mass Index 19.79 kg/m2 03/20/2025 09:09 PM Oxygen Saturation 92 % 03/21/2025 12:21 AM Temperature 98.3 [degF] Oxygen Saturation 95 % Respiratory Rate 18 /min Heart Rate 98 /min Blood Pressure Systolic 130 mm[Hg] Blood Pressure Diastolic 78 mm[Hg] 03/21/2025 12:23 AM Oxygen Saturation 95 % 03/21/2025 10:43 AM Oxygen Saturation 88 % 03/21/2025 03:21 PM Oxygen Saturation 90 % 03/22/2025 12:14 AM Oxygen Saturation 93 % 03/22/2025 10:41 AM Oxygen Saturation 93 % 03/22/2025 11:43 PM Oxygen Saturation 93 % 03/23/2025 01:42 PM Oxygen Saturation 92 % 03/23/2025 06:05 PM Oxygen Saturation 93 % 03/23/2025 10:32 PM Oxygen Saturation 94 % 03/24/2025 01:21 PM Oxygen Saturation 95 % 03/24/2025 04:35 PM Oxygen Saturation 94 % 03/24/2025 11:22 PM Oxygen Saturation 95 % 03/25/2025 08:23 AM Oxygen Saturation 95 % 03/25/2025 10:34 AM Oxygen Saturation 91 % 03/26/2025 01:47 AM Oxygen Saturation 90 % 03/26/2025 08:53 AM Oxygen Saturation 92 % 03/26/2025 11:25 PM Oxygen Saturation 93 % 03/26/2025 01:21 PM Oxygen Saturation 93 % 03/27/2025 08:36 AM Oxygen Saturation 97 % 03/27/2025 05:04 PM Oxygen Saturation 95 % 03/27/2025 11:52 PM Oxygen Saturation 96 % 03/28/2025 01:28 PM Oxygen Saturation 93 % 03/28/2025 08:13 PM Oxygen Saturation 93 % 03/29/2025 01:40 PM Oxygen Saturation 95 % 03/29/2025 05:25 PM Oxygen Saturation 95 % 03/29/2025 04:38 PM Body Weight 135.5 [lb_av] Body Mass Index 21.22 kg/m2 03/29/2025 11:38 PM Oxygen Saturation 94 % 03/30/2025 12:32 PM Oxygen Saturation 93 % 03/31/2025 02:23 AM Oxygen Saturation 94 % 03/31/2025 09:00 AM Oxygen Saturation 95 % 04/01/2025 12:25 AM Oxygen Saturation 96 % 04/01/2025 01:54 PM Oxygen Saturation 90 % 04/01/2025 05:59 PM Oxygen Saturation 91 % Social History No smoking Hx information available Encounters Type CPT Code Date Location Provider Indication s encounter report 03/01/2025 10:48 AM Jessica Epps MD encounter report 03/01/2025 01:35 PM Jessica Epps MD Advance Directives Directive Description Verification Date Supporting Document(s) Resuscitation Other Directive
--- OUTSIDE RECORDS SUMMARY | 2025-06-05 08:38 | XMS_ITS | Clinical Summary ---
Author Organization [facility] Address [address] [place] [address] Care Team Providers Care Clark Driver Name Role Phone Kathie Sánchez TRAIN INSPECTOR Unavailable [phone] Kathie Sánchez TRAIN INSPECTOR Unavailable [phone] Kathie Sánchez TRAIN INSPECTOR Unavailable [phone] Andarde Pendleton OD Unavailable Allergies No known active allergies Medications albuterol HFA 90 mcg/act inhaler Inhale 2 puffs every 4 (four) hours if needed for wheezing Active tiotropium (Spiriva Respimat) 2.5 MCG/ACT inhaler Inhale 2 puffs in the morning. Active Roflumilast (Daliresp) 500 MCG tablet Take 500 mcg by mouth 1 (one) time each day Active budesonide-formo terol (Symbicort) 160-4.5 MCG/ACT inhaler Inhale 2 puffs in the morning and 2 puffs before bedtime. Rinse mouth with water after use to reduce aftertaste and incidence of candidiasis. Do not swallow.. Active sodium chloride 0.9 % nebulizer solution Take 3 mL by nebulization if needed for wheezing Active Restasis 0.05 % ophthalmic emulsion Administer 1 drop into both eyes every 12 (twelve) hours 05/14/20 24 Active dilTIAZem XR (Dilacor XR) 180 MG 24 hr capsuleIndicatio ns:Atrial fibrillation (HCC) Take 1 capsule (180 mg) by mouth Daily 90 capsule 1 10/16/20 24 Active pantoprazole (ProtoNix) 40 MG EC tabletIndication s:Gastro-esophag eal reflux disease without esophagitis Take 1 tablet (40 mg) by mouth in the morning. Take before meals. 90 tablet 1 10/16/20 24 Active tiZANidine (Zanaflex) 4 MG tabletIndication s:DDD (degenerative disc disease), cervical Take 1 tablet (4 mg) by mouth as needed at bedtime for muscle spasms May take 1/2-1 pill at bedtime 90 tablet 10/16/20 24 Active albuterol (2.5 MG/3ML) 0.083% nebulizer solution INHALE 1 VIAL VIA NEBULIZER EVERY 6 HOURS NEEDED FOR SHORTNESS OF BREATH OR WHEEZING 11/28/19 25 Active Prednisolon-Moxi flox-Bromfenac 1-0.5-0.075 % solutionIndicati ons:Age-related nuclear cataract of both eyes Administer 1 drop into affected eye(s) in the morning and 1 drop at noon and 1 drop in the evening and 1 drop before bedtime. 10 mL 1 01/02/20 25 Active aspirin 81 MG EC tablet Take 81 mg by mouth Daily Active metoclopramide (Reglan) 10 MG tabletIndication s:Nausea Take 1 tablet (10 mg) by mouth in the morning and 1 tablet (10 mg) in the evening and 1 tablet (10 mg) before bedtime. 90 tablet 02/23/20 25 Active cefdinir (Omnicef) 300 MG capsule 03/01/20 25 Active levoFLOXacin (Levaquin) 750 MG tablet 03/01/20 25 Active predniSONE (Deltasone) 50 MG tablet 03/01/20 25 Active HYDROcodone-acet aminophen (Adams) 5-325 MG tabletIndication s:Other chronic pain Take 1 tablet by mouth every 4 (four) hours if needed for severe pain 180 tablet 04/11/20 25 025 Active Problems Problem Noted Date Diagnosed Date Nausea 02/22/2025 Age-related nuclear cataract of both eyes 2024 Atherosclerosis of aorta 09/13/2024 Assessment & Plan (09/13/2024 7:15 AM EDT): Per CT Thoracic aortic aneurysm, without rupture, unspe cified 09/13/2024 Assessment & Plan (09/13/2024 7:15 AM EDT): Per CT Other thrombophilia (HHS-HCC) 09/13/2024 Assessment & Plan (09/13/2024 7:16 AM EDT): On anti coagulation Scrotal cyst 09/13/2024 DDD (degenerative disc disease), cervical 2023 Assessment & Plan (10/16/2024 11:39 AM EST): Since last visit had xray neck, on [...] is doing with HEP and his symtpoms Assessment & Plan (09/13/2024 11:23 AM EDT): Check xray, trial muscle relaxer Stretching exercises, fu in 4 weeks Consider further work up if needed (PT/pain mgmt/MRI) Other chronic pain 09/13/2024 Assessment & Plan (09/13/2024 11:22 AM EDT): Wanted refill of prn ibuprofen Abdominal aortic aneurysm (AAA) without rupture 04/10/2024 Overview (04/10/2024): Noted on CT chest 04/20, 2.3cm, stable, sacular aneurysm left lateral distal aortic arch Centrilobular emphysema 02/28/2024 Chronic respiratory failure with hypoxia 024 Assessment & Plan (09/13/2024 7:15 AM EDT): Fu per dr spivey Lumbar radiculopathy 02/28/2024 Gout, unspecified 02/28/2024 Assessment & Plan (02/28/2024 11:19 AM EDT): No changes Check labs Mixed hyperlipidemia 02/28/2024 Assessment & Plan (02/28/2024 11:19 AM EDT): Check labs Neuropathy 02/28/2024 Prostate cancer 02/28/2024 Assessment & Plan (10/16/2024 11:35 AM EST): Continue with radiation treatment Lung mass 02/28/2024 Encounter for subsequent [facility] wellness visit (AWV) in Medicare patient 02/28/2024 Assessment & Plan (02/28/2024 11:19 AM EDT): \Reviewed Ht/Wt/BMI Recommend eye exam yearly Recommend dental exams twice a year Balance work/leisure activities Exercises is recommended most days of the week (appropriate as chronic conditions allow) Follow up yearly and prn Chronic GERD 12/06/2023 Assessment & Plan (02/28/2024 11:19 AM EDT): No changes to current meds Paroxysmal atrial fibrillation 11/12/2023 Assessment & Plan (02/28/2024 11:18 AM EDT): NSR today, and cont asa and cardizem Carpal tunnel syndrome of right wrist 10/27/2023 Overview (10/27/2023): EMG RUE 10/26/2023 mod CTS Anxiety disorder, unspecified 11/17/2017 Primary osteoarthritis of left hip 11/14/2017 COPD (chronic obstructive pulmonary disease) Assessment & Plan (02/28/2024 11:18 AM EDT): Continue with current meds, cont w Dr Spivey as well Declines Pneumovax 23 Resolved Problems Problem Noted Date Diagnosed Date Resolved Date Alcoholism 05/16/2013 12/17/2024 Encounters Date Type Department Care Team Description 05/02/2025 Patient Outreach [facility] [id number] [place] [address] Sri Hicks, LOAN APPROVER 04/11/2025 Telephone [facility] [address] [facility] [address] [place] [address] Melissa Meyers NP 04/08/2025 Patient Outreach [facility] [address] [place] [address] Sri Hicks, LOAN APPROVER 04/04/2025 Clinisync Result Encounter [facility] External Department Unsolicited Robin Epps MD 03/29/2025 Clinisync Result Encounter [facility] External Department Unsolicited Provider, Generic External Data 03/29/2025 Clinisync Result Encounter [facility] External Department Unsolicited Provider, Generic External Data 03/12/2025 Abstract [facility] [address] [facility] [address] [place] [address] Unallocated, Noms MD Mi 03/06/2025 Patient Outreach [place] [address] [place] [address] Lissa Garza MA from Last 3 Months Immunizations Immunization Administration Dates Next Due Pneumococcal Conjugate PCV 20 08/17/2024 RSV, recombinant, protein gay bunit RSVpreF, adjuvant reconstitu, 120mcg/0.5mL, PF (Arexvy) 08/17/2024 Tdap 03/11/2021 Zoster, Recombinant 09/17/2023,07/04/2023 Family History Medical History Relation Name Comments Alcohol abuse Father Emphysema Father Heart disease Father Hypertension Father Chronic bronchitis Mother Heart disease Mother Relation Name Status Comments [...] often do you attend chur ch or congregation services? Never 02/28/2024 Do you belong to any clubs o r organizations such as sabianist groups, unions, fraternal or athletic groups, or [...] Recorded Patient Health Questionnaire-2 Score 0 02/28/2024 [facility] - Occupational Stress [...] place to sleep or slept in a penitentiary (including now)? No 02/28/2024 Sex and Gender Information Value Date Recorded Sex Assigned at Not on file Legal Sex Male 7:47 PM EDT Gender Identity Not on file Sexual Orientation Not on file Last Filed Vital Signs Vital Sign Reading Time Taken Comments Blood Pressure 110/78 10/16/2024 10:59 AM EST Pulse 78 10/16/2024 10:59 AM EST Temperature 36.7 C (98 F) 10/16/2024 10:59 AM EST Respiratory Rate 20 10/16/2024 10:59 AM EST Oxygen Saturation 92% 10/16/2024 10:59 AM EST Inhaled Oxygen Concentration - - Weight 68.2 kg (150 lb 6.4 oz) 10/16/2024 10:59 AM EST Height 175.3 cm (5' 9 ) 10/16/2024 10:59 AM EST Body Mass Index 22.21 10/16/2024 10:59 AM EST Plan of Treatment Health Maintenance Due Date Last Done Comments CT Colonography 1960 FIT-DNA 1960 FIT 1960 FOBT 1960 Lung Cancer Screening Shared Decision Making Sigmoidoscopy 1960 Colonoscopy 10/19/2032 10/19/2022 Colorectal Cancer Screening 10/19/2032 Pneumococcal Vaccine: 65+ Years Completed 4 Influenza Vaccine Discontinued Procedures Procedure Name Priority Date/Time Associated Diagnosis Comments ALL BASIC METABOLIC PANEL Routine 04/04/2025 8:47 AM EDT ALL CBC WITH AUTO DIFF Routine 04/04/2025 8:47 AM EDT CA ECHO DOPPLER COMPLETE 03/29/2025 5:41 PM EDT NM SANDI PERF SPECT REST STR 03/29/2025 1:42 PM EDT from Last 3 Months Results * (ABNORMAL) ALL CBC WITH AUTO DIFF (04/04/2025 8:47 AM EDT) [facility] WBC 8.8 4.0 - 11.0 10 3/uL TB[facility] RBC 4.03(L) 4.70 - 6.10 10 6/uL TB[facility] TB[facility] HGB 11.4(L) 14.0 - 18.0 g/dL TBH TBH HCT 35.8(L) 42.0 - 54.0 % TBH [facility] MCV 88.8 80.0 - 94.0 fL TBH TBH MCH 28.3 25.9 - 34.0 pg TBH TBH MCHC 31.8 29.9 - 35.2 g/dL TBH TBH RDW 14.8 11.0 - 15.0 % TBH TBH PLT 370 150 - 450 10 3/uL TBH TBH MPV 8.7(L) 9.5 - 13.5 fL TBH NEUTROPHILS PERCENT AUTO 68.4 43.0 - 75.0 % TBH LYMPHOCYTES PERCENT AUTO 23.0 20.5 - 60.0 % TBH MONOCYTES PERCENT AUTO 7.3 1.7 - 12.0 % TBH TBH EO % 0.2(L) 0.9 - 7.0 % TBH BASOPHILS PERCENT AUTO 0.2 0.2 - 2.0 % TBH IMMATURE GRANULOCYTES PCT AUTO 0.9(H) 0.0 - 0.5 % TBH NEUTROPHILS ABSOLUTE AUTO 6.0 1.4 - 6.5 10 3/uL TBH LYMPHOCYTES ABSOLUTE AUTO 2.0 1.2 - 3.8 10 3/uL TBH MONOCYTES ABSOLUTE AUTO 0.6 0.3 - 0.8 10 3/uL TBH TBH EO # 0.0 0.0 - 0.7 10 3/uL TBH BASOPHILS ABSOLUTE AUTO 0.0 0.0 - 0.1 10 3/uL TBH IMMATURE GRANULOCYTES ABS AUTO 0.08(H) 0.00 - 0.03 10 3/uL TBH 04/04/2025 8:47 AM EDT 04/04/2025 8:51 AM EDT Narrative [facility] - 04/04/2025 9:01 AM EDT Robin WRAY [facility] * (ABNORMAL) ALL BASIC METABOLIC PANEL (04/04/2025 8:47 AM EDT) SODIUM 138 136 - 145 mmol/L TBH POTASSIUM 3.4(L) 3.5 - 5.1 mmol/L [facility] CHLORIDE 102 98 - 107 mmol/L TBH CARBON DIOXIDE 28.1 21.0 - 32.0 mmol/L TBH ANION GAP 11.3 TBH GLUCOSE 101 74 - 106 mg/dL TBH BLOOD UREA NITROGEN 18.0 7.0 - 18.0 mg/dL TBH CREATININE 0.91 0.70 - 1.30 mg/dL TBH TBH EGFR-AF BENINESE >60 >=60 mL/min/1.7 3m 2 TBH TBH EGFR-NON AF BENINESE >60 >=60 mL/min/1.7 3m 2 TBH BUN CREATININE RATIO 19.8 TBH CALCIUM 9.2 8.5 - 10.1 mg/dL TBH 04/04/2025 8:47 AM EDT 04/04/2025 8:51 AM EDT Narrative [facility] - 04/04/2025 10:29 AM EDT us Robin WRAY Final Result [facility] * CA ECHO DOPPLER COMPLETE (03/29/2025 5:41 PM EDT) Anatomical Region Laterality Modality Other 03/29/2025 5:41 PM EDT Narrative 03/29/2025 5:43 [place] [address] Cardiology Report Signed Patient: MATEO STEARNS MR#: [id number] : 1960 Acct:[id number] Age/Sex: 64 / M ADM Date: 03/29/25 Loc: CARD Attending Dr: RENE CLARK Ordering Physician: RENE CLARK Date of Service: 03/29/25 Procedure(s): CA echo doppler complete Accession Number(s): [id number] cc: Kathie Sánchez TRAIN INSPECTOR; RENE CLARK Patient Name: MATEO STEARNS MR#: [id number] : 1960 Exam Date: 03/29/2025 Ordering Doctor: DR RENE CLARK M.D. ECHOCARDIOGRAM REPORT PROCEDURE: CA ECHO DOPPLER COMPLETE INDICATIONS: Preop, atrial fibrillation, COPD, emphysema COMPARISON: None. DESCRIPTION: COMPLETE ECHOCARDIOGRAM Real-time transthoracic echocardiography with 2D, M-mode, spectral and color flow Doppler performed. QUALITY: Technical quality was good. LEFT VENTRICLE: Normal chamber size. Mildly thickened septal wall. Normal left ventricle stock function without wall motion abnormalities. LV EF: Normal left ventricular ejection fraction 55% DIASTOLIC: Indeterminate diastolic function. ATRIAL SEPTUM: Visually appears intact. LEFT ATRIUM: Normal chamber size. RIGHT ATRIUM: Normal chamber size. RIGHT VENTRICLE: Normal chamber size. Normal right ventricular systolic function. TRICUSPID VALVE: Normal mobility and thickness. No stenosis with trivial regurgitation. Doppler studies reveal mildly (35-45) elevated right sided pressures.RVSP 36 mmHg MITRAL VALVE: Normal mobility and thickness. No evidence of mitral valve stenosis. There is no mitral annular calcification. No mitral regurgitation. AORTIC VALVE: Normal trileaflet appearance. No visible sclerosis. Normal leaflet mobility. No evidence of aortic valve stenosis. No aortic regurgitation. AORTIC ROOT: Normal diameter and appearance. Ascending aorta is normal in size. PULMONIC VALVE: Normal thickness and mobility. No stenosis. No regurgitation. PERICARDIUM: No evidence of pericardial effusion. IVC: Normal size and normal collapse PLEURA: CONCLUSION: Mild septal thickening Normal left ventricular size and systolic function without wall motion abnormalities, ejection fraction 55% Indeterminate left ventricular diastolic function Normal right ventricle size and systolic function Mild pulmonary hypertension, RVSP 36 mmHg No significant valvular abnormalities Adult Echocardiography Procedure Report Left Ventricle LVEDD (3.7 - 5.6 cm): 4.15 cm LVESD (2.2 - 4.0 cm): 2.81 cm LVIVS thickness (0.6 - 1.2 cm): 1.29 cm LVPW thickness (0.5 - 1.0 cm): 0.83 cm e': 0.05 m/s E - e': 12.33 LVOT Max Gradient: 1.45 mm[Hg] LVOT Area (cm2): 0.60 m/s Peak Velocity (LVOT): 0.60 m/s Mean Velocity (LVOT): 0.41 m/s LVOT Diameter 2.22 cm Left Ventricular Ejection Fraction: Left Atrium LA Volume Index (2D A2C): 25.77 ml/m2 Left Atrium Systolic Dimension: 3.06 cm Mitral Valve MV E to A Ratio: 0.93 MV Max Gradient: MV Mean Gradient: Mitral Valve A-Wave Peak Velocity: 0.66 m/s Mitral Valve E-Wave Peak Velocity: 0.61 m/s Cardiovascular Orifice Area: Right Ventricle RV Internal Diastolic Dimension: Aorta AO Root Diam: 3.21 cm Ascending Ao Diam: 2.88 cm Aortic Valve AoV Area (Peak Jose): 2.84 cm2, 2.84 cm2 AoV Area (VTI): 3.36 cm2, 3.36 cm2 Deceleration [place]: Pressure Half-Time: Peak Velocity(Antegrade Flow): 0.82 m/s Peak Gradient(Antegrade Flow): 2.71 mm[Hg] Mean Velocity(Antegrade Flow): 0.56 m/s Mean Gradient(Antegrade Flow): 1.43 mm[Hg] Velocity Time Integral: 16.56 cm Tricuspid Valve Peak Velocity (Regurgitant Flow): 2.86 m/s Peak Velocity: Pulmonic Valve Mean Gradient: 1.14 mm[Hg] Mean Velocity: 0.50 m/s Peak Velocity: 0.77 m/s, 0.73 m/s Peak Gradient: 2.14 mm[Hg], 2.36 mm[Hg] Right Atrium Right Atrium Systolic Pressure: 30.83 ml, 30.83 ml Dictated by: Evelin Renteria MD on 03/29/2025 at 17:34 Approved by: Evelin Renteria MD on 03/29/2025 at 17:41 Dictated By: Evelin Renteria M.D. Signed By: 03/29/251742 DD/ 40 TD/TT: Booking Prizer: Procedure Note Radiology, Radiologist, - 03/29/2025 [place] [address] Cardiology Report Signed Patient: MATEO STEARNS WMR#: [id number] : 1960cct:[id number] Age/Sex: 64 / MADM Date: 03/29/25 Loc: CARD Attending Dr: RENE CLARK Ordering Physician: RENE CLARK Date of Service: 03/29/25 Procedure(s): CA echo doppler complete Accession Number(s): [id number] cc: Kathie Sánchez TRAIN INSPECTOR; RENE CLARK Patient Name: MATEO STEARNS MR#: [id number] : 1960 Exam Date: 03/29/2025 Ordering Doctor: DR RENE CLARK M.D. ECHOCARDIOGRAM REPORT PROCEDURE: CA ECHO DOPPLER COMPLETE INDICATIONS: Preop, atrial fibrillation, COPD, emphysema COMPARISON: None. DESCRIPTION: COMPLETE ECHOCARDIOGRAM Real-time transthoracic echocardiography with 2D, M-mode, spectral and color flow Dopplerperformed. QUALITY: Technical quality was good. LEFT VENTRICLE: Normal chamber size. Mildly thickened septal wall. Normal left ventricle stock function without wall motion abnormalities. LV EF: Normal left ventricular ejection fraction 55% DIASTOLIC: Indeterminate diastolic function. ATRIAL SEPTUM: Visually appears intact. LEFT ATRIUM: Normal chamber size. RIGHT ATRIUM: Normal chamber size. RIGHT VENTRICLE: Normal chamber size. Normal right ventricularsystolic function. TRICUSPID VALVE: Normal mobility and thickness. No stenosis withtrivial regurgitation. Doppler studies reveal mildly (35-45) elevated right sided pressures.RVSP 36 mmHg MITRAL VALVE: Normal mobility and thickness. No evidence of mitralvalve stenosis. There is no mitral annular calcification. No mitralregurgitation. AORTIC VALVE: Normal trileaflet appearance. No visible sclerosis.Normal leaflet mobility. No evidence of aortic valve stenosis. No aortic regurgitation. AORTIC ROOT: Normal diameter and appearance. Ascending aorta is normal in size. PULMONIC VALVE: Normal thickness and mobility. No stenosis. No regurgitation. PERICARDIUM: No evidence of pericardial effusion. IVC: Normal size and normal collapse PLEURA: CONCLUSION: Mild septal thickening Normal left ventricular size and systolic function without wall motion abnormalities, ejection fraction 55% Indeterminate left ventricular diastolic function Normal right ventricle size and systolic function Mild pulmonary hypertension, RVSP 36 mmHg No significant valvular abnormalities Adult Echocardiography Procedure Report Left Ventricle LVEDD (3.7 - 5.6 cm): 4.15 cm LVESD (2.2 - 4.0 cm): 2.81 cm LVIVS thickness (0.6 - 1.2 cm): 1.29 cm LVPW thickness (0.5 - 1.0 cm): 0.83 cm e': 0.05 m/s E - e': 12.33 LVOT Max Gradient: 1.45 mm[Hg] LVOT Area (cm2): 0.60 m/s Peak Velocity (LVOT): 0.60 m/s Mean Velocity (LVOT): 0.41 m/s LVOT Diameter 2.22 cm Left Ventricular Ejection Fraction: Left Atrium LA Volume Index (2D A2C): 25.77 ml/m2 Left Atrium Systolic Dimension: 3.06 cm Mitral Valve MV E to A Ratio: 0.93 MV Max Gradient: MV Mean Gradient: Mitral Valve A-Wave Peak Velocity: 0.66 m/s Mitral Valve E-Wave Peak Velocity: 0.61 m/s Cardiovascular Orifice Area: Right Ventricle RV Internal Diastolic Dimension: Aorta AO Root Diam: 3.21 cm Ascending Ao Diam: 2.88 cm Aortic Valve AoV Area (Peak Jose): 2.84 cm2, 2.84 cm2 AoV Area (VTI): 3.36 cm2, 3.36 cm2 Deceleration [place]: Pressure Half-Time: Peak Velocity(Antegrade Flow): 0.82 m/s Peak Gradient(Antegrade Flow): 2.71 mm[Hg] Mean Velocity(Antegrade Flow): 0.56 m/s Mean Gradient(Antegrade Flow): 1.43 mm[Hg] Velocity Time Integral: 16.56 cm Tricuspid Valve Peak Velocity (Regurgitant Flow): 2.86 m/s Peak Velocity: Pulmonic Valve Mean Gradient: 1.14 mm[Hg] Mean Velocity: 0.50 m/s Peak Velocity: 0.77 m/s, 0.73 m/s Peak Gradient: 2.14 mm[Hg], 2.36 mm[Hg] Right Atrium Right Atrium Systolic Pressure: 30.83 ml, 30.83 ml Dictated by: Evelin Renteria MD on 03/29/2025 at 17:34 Approved by: Evelin Renteria MD on 03/29/2025 at 17:41 Dictated By: Evelin Renteria M.D. Signed By:03/29/251742 DD/ 40 TD/TT: Booking Prizer: Generic External Data Provider [facility] Final Result * NM SANDI PERF SPECT REST STR (03/29/2025 1:42 PM EDT) Anatomical Region Laterality Modality Other 03/29/2025 1:42 PM EDT Narrative 03/29/2025 1:43 [place] [address] Nuclear Medicine Report Signed Patient: MATEO STEARNS MR#: [id number] : 1960 Acct:[id number] Age/Sex: 64 / M ADM Date: 03/29/25 Loc: CARD Attending Dr: RENE CLARK Ordering Physician: RENE CLARK Date of Service: 03/29/25 Procedure(s): NM sandi perf SPECT rest str Accession Number(s): [id number] cc: Kathie Sánchez NP; RENE CLARK Patient Name: MATEO STEARNS MR#: [id number] : 1960 Exam Date: 03/29/2025 Ordering Doctor: DR RENE CLARK M.D. RADIOLOGY REPORT PROCEDURE: NM SANDI PERF SPECT REST STR COMPARISON: None. INDICATIONS: PRE-OP CARDIOVASCULAR EXAM TECHNIQUE: Exam Description: Stress/Rest one day protocol gated SPECT Rest Imagin.0 mCi Tc-99m Cardiolite IV on 03/29/2025 Stress Imaging 31.5 mCi Tc-99m Cardiolite IV on 03/29/2025 Exercise Protocol: 0.4 mg Lexiscan given IV Heart Rate (bpm): Rest: 92 Max: 118 PMHR: 76 Blood Pressure: Rest: 158/90 Max: 158/90 Symptoms: Rest and peak stress ECG findings were pending, and the exercise portion of the study was pending per attending physician [facility]. For more details, please see separate cardiac stress test report. FINDINGS: QUALITY OF STUDY: Good PERFUSION DEFECT: LOCATION: Inferoapical SIZE: Small SEVERITY: Mild TYPE: Reversible WALL MOTION: Normal LV SIZE: 64 mL. TID / TCD: 1.0 LVEF: Calculated EF 67%. SUMMARY: Myocardial perfusion imaging study is abnormal CONCLUSION: 1. Myocardial perfusion is abnormal with soft tissue attenuation 2. There is a small, partially reversible inferoapical perfusion defect suggestive of ischemia 3. Global left ventricular systolic function is normal 4. No evidence of transient ischemic dilatation Dictated by: Veronica Pope M.D. on 03/29/2025 at 13:38 Approved by: Veronica Pope M.D. on 03/29/2025 at 13:42 Dictated By: Veronica Pope M.D. Signed By: 03/29/25 1343 DD/ 1342 TD/TT: Booking Prizer: Procedure Note Radiology, Radiologist, - 03/29/2025 [place] [address] Nuclear Medicine Report Signed Patient: MATEO STEARNS WMR#: [id number] : 8Acct:[id number] Age/Sex: 64 / MADM Date: 03/29/25 Loc: CARD Attending Dr: RENE CLARK Ordering Physician: RENE CLARK Date of Service: 03/29/25 Procedure(s): NM sandi perf SPECT rest str Accession Number(s): [id number] cc: Kathie Sánchez NP; RENE CLARK Patient Name: MATEO STEARNS MR#: [id number] : 1960 Exam Date: 03/29/2025 Ordering Doctor: DR RENE CLARK M.D. RADIOLOGY REPORT PROCEDURE: NM SANDI PERF SPECT REST STR COMPARISON: None. INDICATIONS: PRE-OP CARDIOVASCULAR EXAM TECHNIQUE: Exam Description: Stress/Rest one day protocol gated SPECT Rest Imagin.0 mCi Tc-99m Cardiolite IV on 03/29/2025 Stress Imaging 31.5 mCi Tc-99m Cardiolite IV on 03/29/2025 Exercise Protocol: 0.4 mg Lexiscan given IV Heart Rate (bpm): Rest: 92 Max: 118 PMHR: 76 Blood Pressure: Rest: 158/90 Max: 158/90 Symptoms: Rest and peak stress ECG findings were pending, and the exercise portionof the study was pending per attending physician [facility]. For more details,please see separate cardiac stress test report. FINDINGS: QUALITY OF STUDY: Good PERFUSION DEFECT: LOCATION: Inferoapical SIZE: Small SEVERITY: Mild TYPE: Reversible WALL MOTION: Normal LV SIZE: 64 mL. TID / TCD: 1.0 LVEF: Calculated EF 67%. SUMMARY: Myocardial perfusion imaging study is abnormal CONCLUSION: 1. Myocardial perfusion is abnormal with soft tissue attenuation 2. There is a small, partially reversible inferoapical perfusion defect suggestive of ischemia 3. Global left ventricular systolic function is normal 4. No evidence of transient ischemic dilatation Dictated by: Veronica Pope M.D. on 03/29/2025 at 13:38 Approved by: Veronica Pope M.D. on 03/29/2025 at 13:42 Dictated By: Veronica Pope M.D. Signed By:03/29/25 1343 DD/ 1342 TD/TT: Booking Prizer: Generic External Data Provider [facility] Final Result from Last 3 Months Insurance [employer] MEDICAID [place] Care Teams Clark Driver Relationship Specialty Start Date End Date Kathie Sáncehz NP [address] [place] [phone] PCP - Crow LAFLEUR 12/29/23 Kathie Sánchez NP [address] [place] [address] Nurse Practitioner Family Medicine 10/03/23 Kathie Sánchez NP [address] [place] [address] Nurse Practitioner Family Medicine 02/28/24 Andrade Pendleton OD [address] [place] [address] Referring Physician Optometry 01/02/25
[2025-06-05 10:06] LABS: Prostate Specific Antigen Dx 0.80 ng/mL (<=4.00)
== END 2025-06-05 08:32 | disposition home or self-care (01) ==
PROVIDERS: PCP Nurse Practitioner; Visit Provider Radiology Radiation Oncology
DX: C61 Malignant neoplasm of prostate (principal)
CPT/HCPCS: 36415; 84153

== ENCOUNTER 2025-06-08 17:15 | Inpatient (IN) | payer MEDICARE, MEDICAID, SELFPAY ==
--- OUTSIDE RECORDS SUMMARY | 2025-03-20 11:45 | XMS_ITS ---
Author Organization [facility] Address [address] [place] [address] [place] [address] Care Team Providers Care Avaya Engineer Name Role Phone Robin Epps Primary Care Provider Pa White Unavailable [phone] Encounters Encounter Location Date Provider Diagnosis [address] [address] 03/20/2025 Pa Rose Plan Of Treatment No Information Progress Notes * Alphonse STEARNSDOB: [birth year] (64 yo M)Acc No.[id number]:03/20/2025 Patient: Kashmir OrnelasAlphonse MARSHALL Provider: Oj Rose DPM :1960 A ge:64 Y S ex:Male Date:03/20/2025 Address:[id number] Pcp:Robin Epps Subjective: * Chief Complaints: * * Medical History: Objective: * Vitals: Assessment: Plan: * Treatment: * Images: * Electronic signature of Eugene in RAVI Rose on 06/08/2025 at 05:30 PM EDT Sign off status: Pending * Provider: Oj Rose DPM Date: 03/20/2025 Generated for Dot gerber/Jyoti/Yvan on: 06/08/2025 05:30 PM EDT
--- OUTSIDE RECORDS SUMMARY | 2025-04-24 05:00 | XMS_ITS ---
Author Organization [facility] in [place] Address [address] [place] [address] Care Team Providers Care Transmissions Systems Operator Name Role Phone Kathie Sánchez CNP Primary Care Provider Unavail Josué Busch Unavailable [phone] REASON FOR VISIT 6 Mos F/U -COPD O2 Encounters Encounter Location Date Provider Diagnosis Pulmonary Medicine [place] [address] [place] [address] 04/24/2025 Josué Shea Plan Of Treatment No Information Progress Notes * Alphonse RAJPUTDOB: [birth year] (64 yo M)Acc No.[id number]:04/24/2025 UNLOCKED PROGRESS NOTE Follow Up Patient: Alphonse CH Provider: Oh Shea DO :1960 A ge:64 Y S ex:Male Date:04/24/2025 Address:[address] [place] [address], [address], [place], [id number] Pcp:Kathie Sánchez CNP Subjective: * Chief Complaints: * 1 . 6 Mos F/U -COPD O2. * Medical History: Objective: * Vitals: Assessment: Plan: * Treatment: * * Electronic signature of Shireen Shea DO on 06/08/2025 at 05:30 PM EDT Sign off status: Pending Visit Status: R /S (Rescheduled) * Provider: Oh Shea, DO Date: 0 04/24/2025 Generated for Dot gerber/Jyoti/Yvan on: 0 06/08/2025 05:30 PM EDT
--- OUTSIDE RECORDS SUMMARY | 2025-04-25 06:30 | XMS_ITS ---
Author Organization The [facility] in [place] Address [address] [place] [address] Care Team Providers Care Tank Worker Name Role Phone Kathie Sánchez CNP Primary Care Provider Unavail Josué Busch Unavailable [phone] REASON FOR VISIT 6 Mos F/U -COPD O2 Encounters Encounter Location Date Provider Diagnosis Pulmonary Medicine [place] [address] [place] [address] 04/25/2025 Josué Shea Plan Of Treatment No Information Progress Notes * Alphonse RAJPUTDOB: [birth year] (64 yo M)Acc No.[id number]:04/25/2025 UNLOCKED PROGRESS NOTE Follow Up Patient: Alphonse CH Provider: Oh Shea DO :1960 A ge:64 Y S ex:Male Date:04/25/2025 Address:[address] [place] [address], [address], [place], [id number] Pcp:Kathie Sánchez CNP Subjective: * Chief Complaints: * 1 . 6 Mos F/U -COPD O2. * Medical History: Objective: * Vitals: Assessment: Plan: * Treatment: * * Electronic signature of Shireen Shea DO on 06/08/2025 at 05:31 PM EDT Sign off status: Pending Visit Status: R /S (Rescheduled) * Provider: Oh Shea, DO Date: 0 04/25/2025 Generated for Dot gerber/Jyoti/Yvan on: 0 06/08/2025 05:31 PM EDT
--- OUTSIDE RECORDS SUMMARY | 2025-05-13 10:00 | XMS_ITS ---
Author Organization [facility] Address [address] [place] [address] Care Team Providers Care Oracle Bpm Consultant Name Role Phone James Mart Unavailable [phone] Self, Referral Unavailable Unavailable REASON FOR VISIT RIGHT LEG PAIN Encounters Encounter Location Date Provider Diagnosis [facility] [facility] [address] [facility] [address] [place] [address] 05/13/2025 James Mart Plan Of Treatment Next Appt Details Provider Name:James Malik and, 07/17/2025 10:45:00 AM, [address] [facility] [address] [facility] [address], [place], [address], Progress Notes * MTAEO STEARNS WDOB:[birth year] (64 yo M)Acc No.[id number]:05/13/2025 Patient: MATEO CH Provider: Ruby Mart MD :1960 A ge:64 Y S ex:Male Date:05/13/2025 Address:[address] [place], [place] [id number] Subjective: * Chief Complaints: * 1 . RIGHT LEG PAIN. * Medical History: Objective: * Vitals: Assessment: Plan: * Treatment: Forms: * Images: * Electronic signature of Chris Mart MD on 06/08/2025 at 05:30 PM EDT Sign off status: Pending * Provider: Ruby Mart MD Date: 05/13/2025 Generated for Dot gerber/Jyoti/eTransmitting on: 06/08/2025 05:30 PM EDT
--- OUTSIDE RECORDS SUMMARY | 2025-05-27 10:59 | XMS_ITS | Encounter Summary ---
Author Organization [email or web address] tem Address [facility] [id number] [address] [place] [address] Care Team Providers Care Sponge Packer Name Role Phone Curt De Dios MD Primary Care Provider [phone] Reason for Referral * Diagnostic Imaging (Routine) - Closed Specialty Diagnoses / Procedures Referred By Contac t Referred To Contact Radiology Diagnoses Penetrating atherosclerotic ulcer of aorta Procedures CT angiogram chest Sadie Piper MD [address], [address] [address] Phone: tel: fax: Referral ID Status Reason Start Date Expiration Date Visits Re quested Visits Authorized [id number] Closed 04/03/2025 04/03/2026 1 1 * Diagnostic Imaging (Routine) - Closed Specialty Diagnoses / Procedures Referred By Contac t Referred To Contact Radiology Diagnoses Penetrating atherosclerotic ulcer of aorta Procedures CT angiogram abdomen and pelvis Sadie Piper MD [address], [address] [address] Phone: tel: fax: Referral ID Status Reason Start Date Expiration Date Visits Re quested Visits Authorized [id number] Closed 04/03/2025 04/03/2026 1 1 Reason for Visit * Diagnostic Imaging (Routine) - Closed Specialty Diagnoses / Procedures Referred By Contac t Referred To Contact Radiology Diagnoses Penetrating atherosclerotic ulcer of aorta Procedures CT angiogram chest Sadie Piper MD [address], [address] [address] Phone: tel: fax: Referral ID Status Reason Start Date Expiration Date Visits Re quested Visits Authorized [id number] Closed 04/03/2025 04/03/2026 1 1 Encounter Details Date Type Department Care Team (Latest Contact Info) Description 05/27/2025 10:59 AM EDT - 05/27/2025 11:59 PM EDT Hospital Encounter [facility] - CT Imaging [address] [place] [address] Sadie Piper MD [address], [address] [address] Penetrating atherosclerotic ulcer of aorta Discharge Disposition: Home Social History Tobacco Use Types Packs/Day Years Used Date Smoking Tobacco: Former Cigarettes Smokeless Tobacco: Never Alcohol Use Standard Drinks/Week Comments No 0 (1 standard drink = 0.6 oz pure alcohol) quit drinking 2 years ago; august 2015 [facility] Utilities Answer Date Recorded In the past 12 months has [employer], gas, oil, or water [employer] threatened to shut off services in your home? No 05/01/2025 AUDIT-C Answer Date Recorded Q1: How often do you have a drink containing alcohol? Never 05/01/2025 Q2: How many drinks containi ng alcohol do you have on a typical day when you are drinking? Patient does not drink Q3: How often do you have si x or more drinks on one occasion? Never 05/01/2025 PHQ-2 Answer Date Recorded Total Score 1 05/01/2025 PRAPARE - Transportation Answer Date Re corded In the past 12 months, has l ack of transportation kept you from medical appointments or from getting medications? No 02/2025 In the past 12 months, has l ack of transportation kept you from meetings, work, or from getting things needed for daily living? No 05/01/2025 Housing Instability Answer Date Recorde d Are you worried or concerned that in the next two months you may not have stable housing that you own, rent or stay in as a part of a household? No 05/01/2025 Childcare Answer Date Recorded Childcare Unknown 05/10/2019 Employment Answer Date Recorded Employment Unknown 05/10/2019 Hunger Screening Answer Date Recorded Within the past 12 months we worried whether our food would run out before we got money to buy more. Never True 05/01/2025 Within the past 12 months th e food we bought just didn't last and we didn't have money to get more. Never True 05/01/2025 Purpose - Life Answer Date Recorded Purpose and direction in life Unknown Sex and Gender Information Value Date Recorded Sex Assigned at Not on file Legal Sex Male 8:50 AM EDT Gender Identity Not on file Sexual Orientation Not on file documented as of this encounter Medications at Time of Discharge albuterol (PROVENTIL HFA;VENTOLIN HFA) 90 mcg/actuation inhalerIndications :chronic obstructive pulmonary disease Inhale 2 puffs every 6 (six) hours as needed for wheezing Indications: chronic obstructive pulmonary disease. albuterol (PROVENTIL,VENTOLI N) 2.5 mg /3 mL (0.083 %) nebulizer solutionIndication s:chronic obstructive pulmonary disease Inhale 3 mL (2.5 mg total) by nebulization every 6 (six) hours as needed for wheezing Indications: chronic obstructive pulmonary disease. apixaban (ELIQUIS) 2.5 mg tablet Take 1 tablet (2.5 mg total) by mouth in the morning and 1 tablet (2.5 mg total) before bedtime. afib. aspirin 81 mg Take 1 tablet (81 mg total) by mouth in the morning. A fib. 3 9 atorvastatin (LIPITOR) 40 mg tabletIndications: hyperlipidemia Take 1 tablet (40 mg total) by mouth before bedtime. Indications: excessive fat in the blood. budesonide-formote roL (SYMBICORT) 160-4.5 mcg/actuation inhaler Inhale 2 puffs in the morning and 2 puffs before bedtime. Respiratory failure. busPIRone (BUSPAR) 10 mg tabletIndications: generalized anxiety disorder Take 1 tablet (10 mg total) by mouth 3 (three) times a day Indications: repeated episodes of anxiety. calcium carbonate-vitamin D3 (OSCAL 500 + D) 500 mg (1,250 mg) - 200 units per tablet Take 1 tablet by mouth in the morning and 1 tablet in the evening. Take with meals. supplement. clopidogreL (PLAVIX) 75 mg tablet Take 1 tablet (75 mg total) by mouth in the morning. afib. cycloSPORINE (RESTASIS) 0.05 % ophthalmic emulsion Administer 1 drop to both eyes every 12 (twelve) hours. Tear production 4 diltiazem XR (DILACOR XR) 180 MG 24 hr capsuleIndications :hypertension Take 1 capsule (180 mg total) by mouth in the morning. Indications: high blood pressure. docusate sodium (COLACE) 100 mg capsuleIndications :constipation Take 1 capsule (100 mg total) by mouth in the morning and 1 capsule (100 mg total) before bedtime. Indications: constipation. 5 fluticasone propionate (FLONASE) 50 mcg/actuation nasal sprayIndications:a llergic rhinitis Administer 1 spray into each nostril in the morning. Indications: inflammation of the nose due to an allergy. guaiFENesin (MUCINEX) 600 mg tablet extended release 12hr Take 1 tablet (600 mg total) by mouth every 12 (twelve) hours. copd ipratropium-albute roL (DUONEB) 0.5 mg-3 mg(2.5 mg base)/3 mL nebulizerIndicatio ns:chronic obstructive pulmonary disease with bronchospasms Inhale 3 mL by nebulization 4 (four) times a day Indications: bronchi muscle spasm resulting from COPD. melatonin 5 mg tablet,chewable Chew 2 tablets and swallow nightly. sleep metoclopramide (REGLAN) 10 mg tablet Take 1 tablet (10 mg total) by mouth in the morning and 1 tablet (10 mg total) at noon and 1 tablet (10 mg total) before bedtime. 5 metoprolol succinate XL (TOPROL XL) 50 mg 24 hr tabletIndications: hypertension Take 1 tablet (50 mg total) by mouth in the morning. Indications: high blood pressure. ondansetron (ZOFRAN) 4 mg tablet Take 1 tablet (4 mg total) by mouth every 8 (eight) hours as needed for nausea or vomiting. nausea oxyCODONE-acetamin ophen (PERCOCET) 5-325 mg per tabletIndications: pain Take 1 tablet by mouth every 4 (four) hours as needed for pain Indications: pain. Max Daily Amount: 6 tablets pantoprazole (PROTONIX) 40 mg EC tabletIndications: gastroesophageal reflux disease Take 1 tablet (40 mg total) by mouth in the morning. Indications: gastroesophageal reflux disease. 2 9 REMERON 15 mg tabletIndications: major depressive disorder Take 2 tablets (30 mg total) by mouth nightly Indications: major depressive disorder. 5 ROFLUMILAST ORAL Take 500 mcg by mouth in the morning. COPD. traZODone (DESYREL) 50 mg tabletIndications: insomnia associated with depression Take 1 tablet (50 mg total) by mouth nightly Indications: insomnia associated with depression. documented as of this encounter Plan of Treatment Not on file documented as of this encounter Goals Goal Patient Goal Type Associated Problems Recent Progress Patient-Stated? Author Safe Discharge General Yes Linda Bhat, RN Note: Evaluation of progress towards goal: safe transition back [facility] for [facility]term care services. documented as of this encounter Procedures Procedure Name Priority Date/Time Associated Diagnosis Comments CT CTA CHEST Routine 05/28/2025 2:22 PM EDT Penetrating atherosclerotic ulcer of aorta CT CTA ABD AND PELVIS Routine 05/28/2025 2:22 PM EDT Penetrating atherosclerotic ulcer of aorta documented in this encounter Results * CT angiogram chest (05/28/2025 2:22 PM EDT) Anatomical Region Laterality Modality Lung, Body, Chest, Vascular, Body Covera N/A Computed Tomography 05/29/2025 9:15 AM EDT Narrative 05/29/2025 9:30 AM EDT CLINICAL INFORMATION: . Penetrating atherosclerotic ulcer of aorta TECHNIQUE: CT angiography of the chest, abdomen and pelvis with intravenous contrast. MIP reformats were generated on a separate workstation under concurrent physician supervision and reviewed to further define anatomy and possible pathology. All CT scans at this facility use dose modulation, iterative reconstruction, and/or weight based dosing when appropriate to reduce radiation dose to as low as reasonably achievable. COMPARISON: 02/27/2025 CT chest without intravenous contrast. CT abdomen pelvis 02/23/2025. FINDINGS: Vascular: Ascending aorta is nonaneurysmal. Conventional three-vessel branching pattern of the aortic arch. Heavy burden of calcified atherosclerotic disease at the origin of the left subclavian artery with near complete stenosis. Just proximal to the branching of the innominate artery into the right carotid and subclavian artery there is a thrombosed aneurysm sac measuring up to 1.1 x 0.8 cm. Aneurysm of the descending aorta just distal to the left subclavian artery measuring up to 4.8 x 4.7 cm in conglomeration with the adjacent contiguous lumen. Heavy burden of mixed atherosclerotic disease throughout the descending aorta. At the level of the aortic hiatus there is saccular aneurysm measuring up to 1.7 x 1 cm, a conglomeration with the adjacent aortic lumen measuring up to 3.2 x 2.4 cm. Origins of the celiac and superior mesenteric arteries are patent. Conventional celiac anatomy. Inferior mesenteric arteries patent. Bilateral renal arteries are patent with moderate stenosis secondary to predominantly calcified atherosclerotic disease. Pelvic arterial outflow is patent. There is a short segment dissection in the left common iliac artery. Other findings: No solid visceral abnormality. Bullous emphysema. Normal variation azygous fissure and lobe. No suspicious pulmonary nodules or masses. Age compatible degenerative changes throughout the osseous structures. IMPRESSION: * Aneurysm descending aorta just distal to the aortic arch measuring up to 4.8 cm. 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 * Saccular aneurysm at the aortic hiatus measuring up to 1.7 cm. 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 * Moderate stenosis bilateral renal artery secondary to predominately calcified atherosclerotic disease. * Bullous emphysema. Finalized by Rudy Paige MD on 05/29/2025 9:30 AM Procedure Note Rudy Paige MD - 05/29/2025 CLINICAL INFORMATION: . Penetrating atherosclerotic ulcer of aorta TECHNIQUE: CT angiography of the chest, abdomen and pelvis with intravenous contrast. MIP reformats were generated on a separate workstation under concurrentphysician supervision and reviewed to further define anatomy and possiblepathology. All CT scans at this facility use dose modulation, iterativereconstruction, and/or weight based dosing when appropriate to reduceradiation dose to as low as reasonably achievable. COMPARISON: 02/27/2025 CT chest without intravenous contrast. CT abdomen pelvis02/23/2025. FINDINGS: Vascular: Ascending aorta is nonaneurysmal. Conventional three-vessel branchingpattern of the aortic arch. Heavy burden of calcified atherosclerotic disease at the origin of theleft subclavian artery with near complete stenosis. Just proximal to the branching of the innominate artery into the rightcarotid and subclavian artery there is a thrombosed aneurysm sac measuringup to 1.1 x 0.8 cm. Aneurysm of the descending aorta just distal to the left subclavian arterymeasuring up to 4.8 x 4.7 cm in conglomeration with the adjacentcontiguous lumen. Heavy burden of mixed atherosclerotic disease throughout the descendingaorta. At the level of the aortic hiatus there is saccular aneurysmmeasuring up to 1.7 x 1 cm, a conglomeration with the adjacent aorticlumen measuring up to 3.2 x 2.4 cm. Origins of the celiac and superior mesenteric arteries are patent.Conventional celiac anatomy. Inferior mesenteric arteries patent. Bilateral renal arteries are patent with moderate stenosis secondary topredominantly calcified atherosclerotic disease. Pelvic arterial outflow is patent. There is a short segment dissection inthe left common iliac artery. Other findings: No solid visceral abnormality. Bullous emphysema. Normal variation azygousfissure and lobe. No suspicious pulmonary nodules or masses. Age compatible degenerative changes throughout the osseous structures. IMPRESSION: * Aneurysm descending aorta just distal to the aortic arch measuring upto 4.8 cm. 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 * Saccular aneurysm at the aortic hiatus measuring up to 1.7 cm. 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 * Moderate stenosis bilateral renal artery secondary to predominatelycalcified atherosclerotic disease. * Bullous emphysema. Finalized by Rudy Paige MD on 05/29/2025 9:30 AM us Sadie Piper MD [facility] CT ORDERABLES Final Resul t * CT angiogram abdomen and pelvis (05/28/2025 2:22 PM EDT) Anatomical Region Laterality Modality Body, Abdomen, Body Covera N/A Compu orion Tomography 05/29/2025 9:15 AM EDT Narrative 05/29/2025 9:30 AM EDT CLINICAL INFORMATION: . Penetrating atherosclerotic ulcer of aorta TECHNIQUE: CT angiography of the chest, abdomen and pelvis with intravenous contrast. MIP reformats were generated on a separate workstation under concurrent physician supervision and reviewed to further define anatomy and possible pathology. All CT scans at this facility use dose modulation, iterative reconstruction, and/or weight based dosing when appropriate to reduce radiation dose to as low as reasonably achievable. COMPARISON: 02/27/2025 CT chest without intravenous contrast. CT abdomen pelvis 02/23/2025. FINDINGS: Vascular: Ascending aorta is nonaneurysmal. Conventional three-vessel branching pattern of the aortic arch. Heavy burden of calcified atherosclerotic disease at the origin of the left subclavian artery with near complete stenosis. Just proximal to the branching of the innominate artery into the right carotid and subclavian artery there is a thrombosed aneurysm sac measuring up to 1.1 x 0.8 cm. Aneurysm of the descending aorta just distal to the left subclavian artery measuring up to 4.8 x 4.7 cm in conglomeration with the adjacent contiguous lumen. Heavy burden of mixed atherosclerotic disease throughout the descending aorta. At the level of the aortic hiatus there is saccular aneurysm measuring up to 1.7 x 1 cm, a conglomeration with the adjacent aortic lumen measuring up to 3.2 x 2.4 cm. Origins of the celiac and superior mesenteric arteries are patent. Conventional celiac anatomy. Inferior mesenteric arteries patent. Bilateral renal arteries are patent with moderate stenosis secondary to predominantly calcified atherosclerotic disease. Pelvic arterial outflow is patent. There is a short segment dissection in the left common iliac artery. Other findings: No solid visceral abnormality. Bullous emphysema. Normal variation azygous fissure and lobe. No suspicious pulmonary nodules or masses. Age compatible degenerative changes throughout the osseous structures. IMPRESSION: * Aneurysm descending aorta just distal to the aortic arch measuring up to 4.8 cm. 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 * Saccular aneurysm at the aortic hiatus measuring up to 1.7 cm. 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 * Moderate stenosis bilateral renal artery secondary to predominately calcified atherosclerotic disease. * Bullous emphysema. Finalized by Rudy Paige MD on 05/29/2025 9:30 AM Procedure Note Rudy Paige MD - 05/29/2025 CLINICAL INFORMATION: . Penetrating atherosclerotic ulcer of aorta TECHNIQUE: CT angiography of the chest, abdomen and pelvis with intravenous contrast. MIP reformats were generated on a separate workstation under concurrentphysician supervision and reviewed to further define anatomy and possiblepathology. All CT scans at this facility use dose modulation, iterativereconstruction, and/or weight based dosing when appropriate to reduceradiation dose to as low as reasonably achievable. COMPARISON: 02/27/2025 CT chest without intravenous contrast. CT abdomen pelvis02/23/2025. FINDINGS: Vascular: Ascending aorta is nonaneurysmal. Conventional three-vessel branchingpattern of the aortic arch. Heavy burden of calcified atherosclerotic disease at the origin of theleft subclavian artery with near complete stenosis. Just proximal to the branching of the innominate artery into the rightcarotid and subclavian artery there is a thrombosed aneurysm sac measuringup to 1.1 x 0.8 cm. Aneurysm of the descending aorta just distal to the left subclavian arterymeasuring up to 4.8 x 4.7 cm in conglomeration with the adjacentcontiguous lumen. Heavy burden of mixed atherosclerotic disease throughout the descendingaorta. At the level of the aortic hiatus there is saccular aneurysmmeasuring up to 1.7 x 1 cm, a conglomeration with the adjacent aorticlumen measuring up to 3.2 x 2.4 cm. Origins of the celiac and superior mesenteric arteries are patent.Conventional celiac anatomy. Inferior mesenteric arteries patent. Bilateral renal arteries are patent with moderate stenosis secondary topredominantly calcified atherosclerotic disease. Pelvic arterial outflow is patent. There is a short segment dissection inthe left common iliac artery. Other findings: No solid visceral abnormality. Bullous emphysema. Normal variation azygousfissure and lobe. No suspicious pulmonary nodules or masses. Age compatible degenerative changes throughout the osseous structures. IMPRESSION: * Aneurysm descending aorta just distal to the aortic arch measuring upto 4.8 cm. 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 * Saccular aneurysm at the aortic hiatus measuring up to 1.7 cm. 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 * Moderate stenosis bilateral renal artery secondary to predominatelycalcified atherosclerotic disease. * Bullous emphysema. Finalized by Rudy Paige MD on 05/29/2025 9:30 AM Sadie Piper MD IMG CT ORDERABLES Final Resul t documented in this encounter Visit Diagnoses Diagnosis Penetrating atherosclerotic ulcer of aorta documented in this encounter Administered Medications Inactive Administered Medications - up to 3 most recent administrations Medication Order MAR Action Action Date Dose Rate Site iohexoL (OMNIPAQUE) 350 mg iodine/mL injection 100 mL 100 mL, intravenous, Once in imaging, contrast, Starting on Tue05/27/25 at 1111, For 1 dose, VESICANT (RED) Given 05/27/2025 11:21 AM EDT 100 mL sodium chloride 0.9 % flush 10 mL 10 mL, intravenous, As needed, line care, Starting on Tue05/27/25 at 1111 Given 05/27/2025 11:20 AM EDT 10 mL sodium chloride 0.9 % radiology injection 80 mL, intravenous, Once in imaging, pre/post contrast, Starting on Tue05/27/25 at 1111, For 1 dose Given 05/27/2025 11:20 AM EDT 80 mL documented in this encounter Additional Health Concerns Assessment Noted Time PHQ-9 Depression Total Score: 1 05/01/20 10:30 AM EDT documented as of this encounter Care Teams Sponge Packer Relationship Specialty Start Date End Date Curt De Dios MD [address] [place] [address] PCP - General Family Medicine 05/27/25 documented as of this encounter
--- OUTSIDE RECORDS SUMMARY | 2025-05-27 10:59 | XMS_ITS | Encounter Summary ---
Author Organization [employer] tem Address [id number] [address] [place] [address] Care Team Providers Care Sand Caster Name Role Phone Curt De Dios MD Primary Care Provider [phone] Reason for Referral * Diagnostic Imaging (Routine) - Closed Specialty Diagnoses / Procedures Referred By Contac t Referred To Contact Radiology Diagnoses Penetrating atherosclerotic ulcer of aorta Procedures CT angiogram chest Sadie Piper MD [address], [address] [address] Phone: tel: fax: Referral ID Status Reason Start Date Expiration Date Visits Re quested Visits Authorized [id number] Closed 04/03/2025 04/03/2026 1 1 * Diagnostic Imaging (Routine) - Closed Specialty Diagnoses / Procedures Referred By Contac t Referred To Contact Radiology Diagnoses Penetrating atherosclerotic ulcer of aorta Procedures CT angiogram abdomen and pelvis Sadie Piper MD [address], [address] [address] Phone: tel: fax: Referral ID Status Reason Start Date Expiration Date Visits Re quested Visits Authorized [id number] Closed 04/03/2025 04/03/2026 1 1 Reason for Visit * Diagnostic Imaging (Routine) - Closed Specialty Diagnoses / Procedures Referred By Contac t Referred To Contact Radiology Diagnoses Penetrating atherosclerotic ulcer of aorta Procedures CT angiogram chest Sadie Piper MD [address], [address] [address] Phone: tel: fax: Referral ID Status Reason Start Date Expiration Date Visits Re quested Visits Authorized [id number] Closed 04/03/2025 04/03/2026 1 1 Encounter Details Date Type Department Care Team (Latest Contact Info) Description 05/27/2025 10:59 AM EDT - 05/27/2025 11:59 PM EDT Hospital Encounter [facility] - CT Imaging [address] [place] [address] Sadie Piper MD [address], [address] [address] Penetrating atherosclerotic ulcer of aorta Discharge Disposition: Home Social History Tobacco Use Types Packs/Day Years Used Date Smoking Tobacco: Former Cigarettes Smokeless Tobacco: Never Alcohol Use Standard Drinks/Week Comments No 0 (1 standard drink = 0.6 oz pure alcohol) quit drinking 2 years ago; august 2015 [facility] Utilities Answer Date Recorded In the past 12 months has [employer], gas, oil, or water [employer] threatened to shut off services in your [...] as of this encounter Plan of Treatment Upcoming Encounters Date Type Department Care Team (Latest Contact Info) Description 06/18/2025 10:00 AM EDT [facility] On [address] [address] 07/02/2025 8:00 AM EDT Hospital Encounter [facility] Surgery [address] [place] [address]. [place] [address] Sadie Piper MD [address], [address] [address] 07/02/2025 8:00 AM EDT - 07/02/2025 11:00 AM EDT Surgery [facility] Surgery [address] [place] [address]. [place] [address] Sadie Piper MD [address], [facility] [address] [place] [address] [facility] [[id number] (CPT )] 07/31/2025 10:30 AM EDT Appointment [facility] - CT Imaging [address] [place] [id number] Sadie Piper MD [address], [address] [place] [address] 08/08/2025 9:40 AM EDT Office Visit [facility] [place] [place] [address] Sadie Piper MD [address], [address] [place] [address] Scheduled Procedures Name Priority Associated Diagnoses Date/Ti me ENDOGRAFT [employer]AC[facility] AORTA Penetrating atherosclerotic ulcer of aorta Aneurysm of descending thoracic aorta without rupture 07/02/2025 8:00 AM EDT documented as of this encounter Goals Goal Patient Goal Type Associated Problems Recent Progress Patient-Stated? Author Safe Discharge General Yes Linda Bhat, RN Note: Evaluation of progress towards goal: safe transition back to [facility] for long-term care services. documented as of [...] 05/29/2025 9:30 AM us Sadie Piper MD IMG CT ORDERABLES Final Resul t * CT [...] Diagnoses Diagnosis Penetrating atherosclerotic ulcer of aorta Penetrating atherosclerotic ulcer of aorta Aneurysm of descending thoracic aorta without rupture documented in this encounter Administered Medications Inactive [...] documented as of this encounter Care Teams Sand Caster Relationship Specialty Start Date End Date Curt De Dios MD [address] [place] [address] PCP - General Family Medicine 05/27/25 documented as of this encounter
--- OUTSIDE RECORDS SUMMARY | 2025-05-30 10:00 | XMS_ITS | Encounter Summary ---
Author Organization [employer] [facility] tem Address [id number] [address] [place] [address] Care Team Providers Care Coding Educator Name Role Phone Curt Lowry MD Primary Care Provider [phone] Reason for Visit * Reason Comments tevar 04-09-25 testing done [place] angiogram chest 6/ Encounter Details Date Type Department Care Team (Latest Contact Info) Description 05/30/2025 10:00 AM EDT [facility] [place] [address] [place] [address] Sadie Piper MD [address], [address] [address] Penetrating atherosclerotic ulcer of aorta (Primary Dx); Aneurysm of descending thoracic aorta without rupture Social History Tobacco Use Types Packs/Day Years Used Date Smoking Tobacco: Former Cigarettes Smokeless Tobacco: Never Alcohol Use Standard Drinks/Week Comments No 0 (1 standard drink = 0.6 oz pure alcohol) quit drinking 2 years ago; august 2015 [facility] Utilities Answer Date Recorded In the past 12 months has [employer], gas, oil, or water [employer] threatened to shut off services in your [...] the original note were not included. To: CURT LOWRY MD HPI: Alphonse Rajput is a [...] Acute and chronic respiratory failure with hypoxia ([facility]) Anemia Anxiety Arthritis Atrial fibrillation ([facility]) Chronic respiratory failure ([facility]) Cognitive communication deficit Colitis COPD (chronic obstructive pulmonary disease) ([facility]) Depression Dysphagia, oropharyngeal phase Emphysema of lung ([facility]) Fracture of unspecified part of neck [...] Performed by Jr Sylvain Rosenbaum DO at [facility] THORACIC ARTERIOGRAM WITH IVUS N/A 04/30/2025 Performed by Sadie Piper MD at [facility] Social and Family History: Social History Socioeconomic [...] Strain: Low Risk (04/05/2025) Received from [facility] Overall Financial Resource Strain (CARDIA) Difficulty of Paying Living Expenses: Not very hard Food Insecurity: No Food Insecurity (05/01/2025) Hunger Screening Food Insecurity - Worry: Never True Food Insecurity - Inability: Never True Transportation Needs: No Transportation Needs (05/01/2025) PRAPARE - Transportation Lack of Transportation (Medical): No Lack of Transportation (Non-Medical): No Physical Activity: Inactive (02/28/2024) Received from [facility] Exercise Vital Sign Days of Exercise per Week: 0 days Minutes of Exercise per Session: 0 min Stress: No Stress Concern Present (02/28/2024) Received from [facility] [place] of Occupational Health - Occupational Stress Questionnaire Feeling of Stress : Only a little Social Connections: Moderately Isolated (02/28/2024) Received from [facility] Social Connection and Isolation Panel [NHANES] Frequency of Communication with Friends and Family: Three times a week Frequency of Social Gatherings with Friends and Family: Never Attends Orthodoxy Services: Never Active Member of Clubs or [...] today for tevar 04-09-25 testing done [place] angiogram chest Diagnoses and all orders for this visit: Penetrating atherosclerotic ulcer of aorta Aneurysm of descending thoracic aorta without rupture Sadie Piper MD, CELSO, RPVI, FSVS, FACS [facility] This note was created [...] documented in this encounter Plan of Treatment Upcoming Encounters Date Type Department Care Team (Latest Contact Info) Description 06/18/2025 10:00 AM EDT [facility] On [address] [address] 07/02/2025 8:00 AM EDT Hospital Encounter [facility] - Surgery [address] [place] [id number] Sadie Piper MD [address], [address] [address] 07/02/2025 8:00 AM EDT - 07/02/2025 11:00 AM EDT Surgery [facility] - Surgery [address] [place] [phone] Sadie Piper MD [address], [address] [place] [address] ENDOGRAFT BYPASS THORACIC AORTA [[id number] (CPT )] 07/31/2025 10:30 AM EDT Appointment [facility] - CT Imaging [address] [place] [address] Sadie Piper MD [address], [address] [place] [address] 08/08/2025 9:40 AM EDT Office Visit [facility] [place] [address] [place] [address] Sadie Piper MD [address], [facility] [address] [place] [address] Scheduled Procedures Name Priority Associated Diagnoses Date/Ti me ENDOGRAFT BYPASS THORACIC AORTA Penetrating atherosclerotic ulcer of aorta Aneurysm of descending thoracic aorta without rupture 07/02/2025 8:00 AM EDT documented as of this encounter Goals Goal Patient Goal Type Associated Problems Recent Progress Patient-Stated? Author Safe Discharge General Yes Linda Bhat, RN Note: Evaluation of progress towards goal: safe transition back to [facility] for long-term care services. documented as of this encounter Visit Diagnoses Diagnosis Penetrating atherosclerotic ulcer of aorta- Primary Aneurysm of descending thoracic aorta without rupture Penetrating atherosclerotic ulcer of aorta Aneurysm of descending thoracic aorta without rupture documented in this encounter Additional Health Concerns Assessment Noted Time PHQ-9 Depression Total Score: 1 05/01/20 10:30 AM EDT documented as of this encounter Care Teams Coding Educator Relationship Specialty Start Date End Date Curt Lowry MD [address] [place] [address] PCP - General Family Medicine 05/27/25 documented as of this encounter
--- OUTSIDE RECORDS SUMMARY | 2025-05-30 10:00 | XMS_ITS | Encounter Summary ---
Author Organization [employer] [facility] tem Address [id number] [address] [place] [address] Care Team Providers Care Soda Flaker Name Role Phone Teo Lowry MD Primary Care Provider [phone] Reason for Visit * Reason Comments tevar 04-09-25 testing done in [place] angiogram chest 6/ Encounter Details Date Type Department Care Team (Latest Contact Info) Description 05/30/2025 10:00 AM EDT [facility] [place] [address] [place] [address] Sadie Piper MD [address], [address] [address] Penetrating atherosclerotic ulcer of aorta (Primary Dx); Aneurysm of descending thoracic aorta without rupture Social History Tobacco Use Types Packs/Day Years Used Date Smoking Tobacco: Former Cigarettes Smokeless Tobacco: Never Alcohol Use Standard Drinks/Week Comments No 0 (1 standard drink = 0.6 oz pure alcohol) quit drinking 2 years ago; august 2015 [facility] Utilities Answer Date Recorded In the past 12 months has [employer], gas, oil, or water [employer] threatened to shut off services in your [...] Acute and chronic respiratory failure with hypoxia ([facility]) Anemia Anxiety Arthritis Atrial fibrillation ([facility]) Chronic respiratory failure ([facility]) Cognitive communication deficit Colitis COPD (chronic obstructive pulmonary disease) ([facility]) Depression Dysphagia, oropharyngeal phase Emphysema of lung ([facility]) Fracture of unspecified part of neck of unspecified femur, subsequent encounter for closed fracturewith routine healing Hypertension Insomnia disorder Muscle weakness Pneumonia Unspecified protein-calorie malnutrition Visual impairment glasses Past Surgical History: Past Surgical History: Procedure Laterality Date CARPAL TUNNEL RELEASE Left FOOT FUSION Right shattered heel JOINT REPLACEMENT right hip REPLACEMENT TOTAL JOINT HIP Left 11/15/2017 Performed by Jr Sylvain Rosenbaum DO at [facility] THORACIC ARTERIOGRAM WITH IVUS N/A 04/30/2025 Performed by Sadie Piper MD at [facility] Social and Family History: Social History [...] Strain: Low Risk (04/05/2025) Received from [facility] Overall Financial Resource Strain (CARDIA) Difficulty of Paying Living Expenses: Not very hard Food Insecurity: No Food Insecurity (05/01/2025) Hunger Screening Food Insecurity - Worry: Never True Food Insecurity - Inability: Never True Transportation Needs: No Transportation Needs (05/01/2025) PRAPARE - Transportation Lack of Transportation (Medical): No Lack of Transportation (Non-Medical): No Physical Activity: Inactive (02/28/2024) Received from [facility] Exercise Vital Sign Days of Exercise per Week: 0 days Minutes of Exercise per Session: 0 min Stress: No Stress Concern Present (02/28/2024) Received from [facility] [place] of Occupational Health - Occupational Stress Questionnaire Feeling of Stress : Only a little Social Connections: Moderately Isolated (02/28/2024) Received from [facility] Social Connection and Isolation Panel [NHANES] Frequency of Communication with Friends and Family: Three times a week Frequency of Social Gatherings with Friends and Family: Never Attends [employer] Services: Never Active Member of Clubs or [...] today for tevar 04-09-25 testing done in [place] angiogram chest Diagnoses and all orders [...] progress towards goal: safe transition back to [facility] for long-term care services. documented as of this encounter Visit Diagnoses Diagnosis Penetrating atherosclerotic ulcer of aorta- Primary Aneurysm of descending thoracic aorta without rupture documented in this encounter Additional Health Concerns Assessment Noted Time PHQ-9 Depression Total Score: 1 05/01/20 25 10:30 AM EDT documented as of this encounter Care Teams Soda Flaker Relationship Specialty Start Date End Date Teo Lowry MD [address] [place] [address] PCP - General Family Medicine 05/27/25 documented as of this encounter
[2025-06-08] VITALS (45 sets, daily range): BP systolic 78–131; BP diastolic 47–84; PULSE 101–203; TEMP 36.8; O2SAT 88–97; BMI 19.8
[2025-06-08] MEDS: AMIODARONE IN DEXTROSE,ISO-OSM 150 MG/100 ML PIGGYBACK 600 MG IV (17:30)
--- OUTSIDE RECORDS SUMMARY | 2025-06-08 17:30 | XMS_ITS | Patient Health Record ---
Author Organization [facility] Address [address] [place] [address] [place] [address] Care Team Providers Care Lap Maker Name Role Phone Supriya, Jessicamorro Primary Care Provider Pa White Unavailable [phone] Reason For Referral No Information Encounters Encounter Location Date Provider Diagnosis [facility] [address] [facility] [place] [address] 03/20/2025 Pa Rose Plan Of Treatment No Information Insurance Providers Payer Name Payer Address Payer Phone Subscriber Number Group Number Insured Name Patient Relationship to Insured Coverage Start Date Coverage End Date [employer] [address] [place] [address] [id number] Alphonse Rajput Self - patient is the insured Medicaid [place] [employer] [address] [place] [id number] Alphonse Rajput Self - patient is the insured
--- OUTSIDE RECORDS SUMMARY | 2025-06-08 17:30 | XMS_ITS | Clinical Summary ---
Author Organization [employer] tem Address [id number] [address] [place] [address] Care Team Providers Care Carpenters Helper Name Role Phone Curt De Dios MD Primary Care Provider [phone] Allergies No known active allergies Medications albuterol [...] AM EDT Office Visit [facility] [place] [address] Sadie Piper MD Penetrating atherosclerotic ulcer of aorta (Primary Dx); Aneurysm of descending thoracic aorta without rupture 05/27/2025 10:59 AM EDT - 05/27/2025 11:59 PM EDT Hospital Encounter [facility] - CT Imaging [address] [place] [address] Sadie Piper MD Penetrating atherosclerotic ulcer of aorta Discharge Disposition: Home 05/27/2025 Travel 04/30/2025 11:56 AM EDT Anesthesia Event [facility] - Surgery [address] [place] [address]. [place] [address] Randell Sawant MD 04/30/2025 11:30 AM EDT - 04/30/2025 2:15 PM EDT Surgery [facility] - Surgery [address] [place] [address]. [place] [address] Sadie Piper MD THORACIC ARTERIOGRAM WITH IVUS 04/30/2025 8:53 AM EDT - 05/01/2025 2:36 PM EDT Hospital Encounter [facility] - GINA [address] Acute [address] [place] [address] Sadie Piper MD Discharge Disposition: Jail Facility-Medicare Cert 04/30/2025 Travel 04/17/2025 Documentation [facility] On [address] [place] [address] Indigo Mishra RN 04/17/2025 Travel 04/16/2025 8:00 AM EDT Support Visit [facility] On [address] [address] 04/03/2025 Orders Only [facility] [address] [place] [address] Shantelle Morales Penetrating atherosclerotic ulcer of aorta (Primary Dx) 03/27/2025 Travel 03/26/2025 8:30 AM EDT Support Visit [facility] On [address] [place] [address] from Last 3 Months Immunizations Immunization Administration [...] quit drinking 2 years ago; august 2015 [facility] Prescient Answer Date Recorded In the past 12 months has th [employer], gas, oil, or water [employer] threatened to shut off services in your [...] 2023 Fall Risk Screening 2023 COVID-19 Vaccine (2023-2 5 season) 2025 09/21/2024, 09/25/2022, 05/26/2021, Additional [...] progress towards goal: safe transition back to [facility] for long-term care services. Medical Devices Implanted Type Area Vp Director Of Finance Device Identifier Shelf Expiration Date Model / Serial / Lot Cup Actb 50mm Pncl Sect Pinn Sector W/Gription 50mm - Sn/A - [id number] Implanted:Qty : 1 on 11/15/2017 by Sylvain Rosenbaum Jr., DO at [facility] Orthopedic Implant Left: Hip DEPUY 08/27/2027 [id number] / N/A / [id number] Stm Fem 160mm 14 Crl Amt Ti Koehler Corail Amt Collar Size 14 - Sn/A - [id number] Implanted:Qty : 1 on 11/15/2017 by Sylvain Rosenbaum Jr., DO at [facility] Orthopedic Implant Left: Hip DEPUY 05/27/2022 [id number] / N/A / [id number] Ins Actb 50mm 32mm +4mm Ntrl Altrx +4 Neut [id number] - Sn/A - [id number] Implanted:Qty : 1 on 11/15/2017 by Sylvain Rosenbaum Jr., DO at [facility] Orthopedic Implant Left: Hip DEPUY 08/27/2022 [id number] / N/A / [id number] Hip Dep Pf Spcl Mtl Construct - [id number] Implanted:Qty : 1 on 11/15/2017 by Sylvain Rosenbaum Jr., DO at [facility] Orthopedic Implant Left: Hip DEPUY DEP-17 / / Elmntr Hl Drlc Pncl Hip Mrthn [place] Positive Stop - Sn/A - [id number] Implanted:Qty : 1 on 11/15/2017 by Sylvain Rosenbaum Jr., DO at [facility] Other Implant Left: Hip DEPUY 05/27/2025 [id number] / N/A / [id number] Hd Fem 32mm 32 +5mm Std Articul/Brandon Ball 32 +5 Br - Sn/A - [id number] Implanted:Qty : 1 on 11/15/2017 by Sylvain Rosenbaum Jr., DO at [facility] Other Implant Left: Hip DEPUY 08/27/2022 [id number] / N/A / [id number] Scr Hip Canc Cnn Gription 25mm Pinn Can Bone Screw [id number] - Sn/A - [id number] Implanted:Qty : 1 on 11/15/2017 by Sylvain Rosenbaum Jr., DO at [facility] Screw Left: Hip DEPUY 09/27/2027 [id number] / N/A / [id number] Procedures Procedure Name Priority Date/Time Associated Diagnosis [...] ICA HH Routine 04/30/2025 12:22 PM EDT AL ANES ART LINE Routine 04/30/2025 12:17 PM EDT AL AN ELECTIVE ENDOTRACHEAL AIRWAY Routine 04/30/2025 12:11 PM EDT ENDOGRAFT BYPASS THORACIC AORTA 04/30/2025 11:56 AM EDT Penetrating atherosclerotic ulcer of aorta Case Notes SHANTELLE CAROLYNQ 45W/ 90W PER ILANA 04/11 per MS, 135W, 165T (CMF) [facility] [phone] GENERAL - POSSBLE SPINAL APRIL--[employer] Special Needs [facility] [phone] APRIL--[employer] REPEATED ABORH Routine 04/30/2025 9:57 AM [...] on 05/29/2025 9:30 AM Sadie Piper MD IM CT ORDERABLES Final Resul t * (ABNORMAL) CBC auto differential (05/01/2025 3:50 AM EDT) Only the most recent of2 resultswithin the time period is included. WBC 8.1 4 - 11 x10E9/L 05/01/2025 4:43 AM EDT [facility] RBC Count 3.80(L) 4.1 - 5.7 X10E12/L 05/01/2025 4:43 AM EDT [facility] Hemoglobin 10.7(L) 13 - 17 g/dL 05/01/2025 4:43 AM EDT [facility] Hematocrit 31.5(L) 39 - 50 % 05/01/2025 4:43 AM EDT [facility] MCV 83 80 - 100 fL 05/01/2025 4:43 AM EDT [facility] MCH 28.2 27 - 34 pg 05/01/2025 4:43 AM EDT [facility] MCHC 34.0 32 - 36 g/dL 05/01/2025 4:43 AM EDT [facility] RDW 15.9(H) 11.5 - 15 % 05/01/2025 4:43 AM EDT [facility] Platelet Count 218 150 - 450 X10E9/L 05/01/2025 4:43 AM EDT [facility] MPV 7.4 7 - 12 fL 05/01/2025 4:43 AM EDT [facility] Neutrophils % 77.2 % 05/01/2025 4:43 AM EDT [facility] Lymphocytes % 15.3 % 05/01/2025 4:43 AM EDT [facility] Monocytes % 7.2 % 05/01/2025 4:43 AM EDT [facility] Eosinophils % 0.0 % 05/01/2025 4:43 AM EDT [facility] Basophils % 0.3 % 05/01/2025 4:43 AM EDT [facility] Neutrophils Absolute (A) 6.3 1.5 - 6.6 10*3/uL 05/01/2025 4:43 AM EDT [facility] Lymphocytes Absolute 1.2 1.0 - 3.5 10*3/uL 05/01/2025 4:43 AM EDT [facility] Monocytes Absolute 0.6 0.0 - 0.9 10*3/uL 05/01/2025 4:43 AM EDT [facility] Eosinophils Absolute 0.0 0.0 - 0.4 10*3/uL 05/01/2025 4:43 AM EDT [facility] Basophils Absolute 0.0 0.0 - 0.2 10*3/uL 05/01/2025 4:43 AM EDT [facility] Differential Type AUTOMATED DIFFERENTIAL 05/01/2025 4:43 AM EDT [facility] Blood Venous blood / Unknown 05/01/2025 3:50 AM EDT 05/01/2025 3:50 AM EDT us Malia Gil MD LAB BLOOD ORDERABLES Final R esult [facility] [address] [place] [address], * (ABNORMAL) Basic Metabolic Panel (05/01/2025 3:50 AM EDT) Only the most recent of2 resultswithin the time period is included. SODIUM 138 134 - 146 mmol/L 05/01/2025 5:08 AM EDT [facility] POTASSIUM 4.1 3.5 - 5.0 mmol/L 05/01/2025 5:08 AM EDT [facility] CHLORIDE 101 98 - 109 mmol/L 05/01/2025 5:08 AM EDT [facility] CARBON DIOXIDE 29 22 - 32 mmol/L 05/01/2025 5:08 AM EDT [facility] ANION GAP 8 5 - 15 mmol/L 05/01/2025 5:08 AM EDT [facility] BLOOD UREA NITROGEN 22 5 - 27 mg/dL 05/01/2025 5:08 AM EDT [facility] CREATININE 0.66 0.60 - 1.30 mg/dL 05/01/2025 5:08 AM EDT [facility] Comment:METHOD TRACEABLE TO [facility] STANDARD GLUCOSE 145(H) 65 - 99 mg/dL 05/01/2025 5:08 AM EDT [facility] CALCIUM 8.9 8.5 - 10.5 mg/dL 05/01/2025 5:08 AM EDT [facility] EGFR Non-Race Dependent >90 >=60 ml/min/1.7 3sq.m 05/01/2025 5:08 AM EDT [facility] Comment: Reported eGFR is based on the CKD-EPI 2020 equation that does not use a race coefficient. Blood Venous blood / Unknown 05/01/2025 3:50 AM EDT 05/01/2025 3:50 AM EDT Malia Gil MD LAB BLOOD ORDERABLES Final R esult [facility] [address] [place] [address], * ABO Rh Repeat (04/30/2025 5:12 PM EDT) Only the most recent of2 resultswithin the time period is included. ABO O 04/30/2025 11:53 PM EDT [facility] RH Positive 04/30/2025 11:53 PM EDT [facility] Blood Venous blood / Unknown 04/30/2025 5:12 PM EDT 04/30/2025 5:12 PM EDT Sadie Piper MD BLOOD BANK TEST ORDERABLES Fi nal Result [facility] [address] [facility] [place] [address], [facility] [address] [place] [address], [place] * (ABNORMAL) Ionized magnesium (04/30/2025 5:11 PM EDT) [facility] IONIZED MAGNESIUM 0.33(L) 0.45 - 0.74 mmol/L 04/30/2025 5:37 PM EDT [facility] Blood Venous blood / Unknown 04/30/2025 5:11 PM EDT 04/30/2025 5:11 PM EDT Malia Gil MD LAB BLOOD ORDERABLES Final R esult [facility] [address] [place] [address], [place] [phone] * Fluoroscopy track vascular operative (04/30/2025 1:38 PM EDT) Narrative SYSTEMGENERATED, DOCUMENTATION - 04/30/2025 1:39 PM EDT Please refer to the vascular OP note for a dictation on this exam. Sadie Piper MD IMG FLUOROSCOPY ORDERABLES Fi nal Result * (ABNORMAL) POCT ABG Rapid K GLU ICA HH (04/30/2025 12:22 PM EDT) [facility] POC Potassium 4.3 3.5 - 5.0 mmol/L 04/30/2025 12:25 PM EDT [facility] POC Glucose 121(H) 65 - 99 mg/dL 04/30/2025 12:25 PM EDT [facility] POC HGB 11.4(L) 13.0 - 17.0 g/dL 04/30/2025 12:25 PM EDT [facility] POC Hematocrit 35(L) 39 - 49 % 04/30/2025 12:25 PM EDT [facility] POC Ionized Calcium 4.7 4.5 - 5.3 mg/dL 04/30/2025 12:25 PM EDT [facility] Sample type Arterial 04/30/2025 12:25 PM EDT [facility] Body Temp 37.00 >=37 C 04/30/2025 12:25 PM EDT [facility] pH, Arterial 7.457(H) 7.350 - 7.450 04/30/2025 12:25 PM EDT [facility] pCO2, Arterial 38.1 35.0 - 45.0 mmHg 04/30/2025 12:25 PM EDT [facility] PO2, Arterial 254(H) 80 - 100 mmHg 04/30/2025 12:25 PM EDT [facility] Base, Excess 3.0(H) 0.0 - 2.0 mmol/L 04/30/2025 12:25 PM EDT [facility] HCO3, Arterial 26.9(H) 22.0 - 26.0 mmol/L 04/30/2025 12:25 PM EDT [facility] %O2 Saturation, Arterial 100.3 >90.0 % 04/30/2025 12:25 PM EDT [facility] Memo's test NA 04/30/2025 12:25 PM EDT [facility] Sample site A LINE 04/30/2025 12:25 PM EDT [facility] Insp. O2 conc. 100.0 % 04/30/2025 12:25 PM EDT [facility] Arterial site (attribute) (Blood, Arterial) 04/30/2025 12:22 PM EDT 04/30/2025 12:25 PM EDT us Sadie Piper MD POINT OF CARE TEST ORDERABLES Final Result Performing Organization Address City/State/[facility] Co de Phone Number [facility] [address] [place] [address], * AL ANES ART LINE (04/30/2025 12:17 PM EDT) Narrative Antwon Llanos SRNA - 04/30/2025 12:17 PM EDT SACHIN Mcmillan 04/30/2025 12:17 PM Art Line Performed by: SACHIN Mcmillan Authorized by: Randell Sawant MD Patient Location: OR Start Time: 04/30/2025 12:14 PM Service Provider: Randell Sawant MD FLOUR WORKER ( if not the service provider): STELLA [...] 20 G Total Catheter Length (inches): 1 01/29 Location: Radial Orientation: Right Securement Method: Transparent Dressing, Steri-Stips and Taped Specimen Obtained: Yes Placement Technique: Anatomical Landmarks and Guidewire Insertion Attempts: 1 Patient Tolerance: Tolerated Well no arterial injury us Randell Sawant MD AL ANESTHESIA Final Result * AL AN ELECTIVE ENDOTRACHEAL AIRWAY (04/30/2025 12:11 PM EDT) Antwon Velásquez SRNA - 04/30/2025 12:11 PM EDT SACHIN Mcmillan 04/30/2025 12:16 PM Airway Patient location during procedure: OR Urgency: Elective Date/Time: 04/30/2025 12:11 PM Airway not difficult IV In Situ: Peripheral General Information and Staff Service Provider: Randell Sawant MD FLOUR WORKER: STELLA Mariee Student: SACHIN Mcmillan Placed by: [...] Intubation Trauma? No Visibility: Cords Clear Blade: Eli Blade size: #3 Placement verified by: chest auscultation, capnography and symmetrical chest wall movement ETT size: 8.0 mm Measured from: Lips Secured at (cm): 23 us Randell Sawant MD ANESTHESIA ORDERABLES Final Res ult * Type and screen (Pre-op) (04/30/2025 9:57 AM EDT) ABO O 04/30/2025 11:03 AM EDT [facility] RH Positive 04/30/2025 11:03 AM EDT [facility] Antibody Screen Negative 04/30/2025 11:03 AM EDT [facility] Blood Venous blood / Unknown 04/30/2025 9:57 AM EDT 04/30/2025 9:57 AM EDT us Sadie Piper MD BLOOD BANK TEST ORDERABLES Ed ited Result - Final [facility] [address] [place] [address], [facility] [address] [place] [address], from Last 3 Months Insurance MEDICAID [place] MEDICARE Care Teams Carpenters Helper Relationship Specialty Start Date End Date Curt De Dios MD [address] [place] [address] PCP - General Family Medicine 05/27/25
--- OUTSIDE RECORDS SUMMARY | 2025-06-08 17:30 | XMS_ITS | Encounter Summary ---
Author Organization [place] tem Address [id number] [address] [place] [address] Care Team Providers Care Water Ski Assembler Name Role Phone Curt De Dios MD Primary Care Provider [phone] Encounter Details Date Type Department Care Team (Late st Contact Info) Description 04/17/2025 Documentation [facility] On [address] [address] Indigo Mishra RN Social History Tobacco Use [...] 3:58 PM EDT Faxed PAT instructions to [facility] [phone] documented in this encounter Plan of Treatment Not on file documented as of this encounter Visit Diagnoses Not on filedocumented in this encounter Care Teams Water Ski Assembler Relationship Specialty Start Date End Date Curt De Dios MD [address] [place] [address] PCP - General Family Medicine 05/27/25 documented as of this encounter
--- OUTSIDE RECORDS SUMMARY | 2025-06-08 17:30 | XMS_ITS | Encounter Summary ---
Author Organization [employer] tem Address [id number] [address] [place] [address] Care Team Providers Care Laboratory Monitor Name Role Phone Curt De Dios MD Primary Care Provider [phone] Reason for Referral * Specialty Diagnoses / Procedures Referred By Contac t Referred To Contact Vascular Surgery JESSICA OLSEN TOWER [address] [place] [address] Phone: tel: fax: Referral ID Status Reason Start Date Expiration Date Visits Re quested Visits Authorized Encounter Details Date Type Department Care Team (Late st Contact Info) Description 02/22/2025 Orders Only [facility] [address] [place] [address] Spencer Rose MD [address] [place] [address] Social History Tobacco Use Types Packs/Day Years [...] Vascular Surgery (02/15/2025 9:38 AM EDT) us Specner Rose MD OUTPATIENT REFERRAL ORDERABLE S Final Result MANUALLY TRANSCRIBED RESULTS documented in this encounter Visit Diagnoses Not on filedocumented in this encounter Care Teams Laboratory Monitor Relationship Specialty Start Date End Date Curt De Dios MD [address] [place] [address] PCP - General Family Medicine 05/27/25 documented as of this encounter
--- OUTSIDE RECORDS SUMMARY | 2025-06-08 17:30 | XMS_ITS | Encounter Summary ---
Author Organization [facility] Address [address] [place] [address] Care Team Providers Care Student Name Role Phone Kathie Sánchez NP Unavailable [phone] Kathie Sánchez CONSOLIDATOR Unavailable [phone] Kathie Sánchez CONSOLIDATOR Unavailable [phone] Andrade Pendleton OD Unavailable Encounter Details Date Type Department Care Team (Late st Contact Info) Description 06/05/2025 Clinisync Result Encounter [facility] External Department Unsolicited [...] any clubs o r organizations such as evangelical groups, unions, fraternal or athletic groups, or [...] Recorded Patient Health Questionnaire-2 Score 0 02/28/2024 [facility] - [...] Procedure Name Priority Date/Time Associated Diagnosis Comments MHPT PSA, DIAGNOSTIC Routine 06/05/2025 8:53 AM EDT documented in this encounter Results * MHPT PSA, DIAGNOSTIC (06/05/2025 8:53 AM EDT) PROSTATE SPECIFIC ANTIGEN DX 0.80 <=4.00 ng/mL [facility] 06/05/2025 8:53 AM EDT 06/05/2025 8:54 AM EDT Narrative [facility] - 06/05/2025 10:15 AM EDT us Generic External Data Provider [facility] F inal Result [facility] documented in this encounter Visit Diagnoses Not on filedocumented in this encounter Additional Health Concerns Assessment Noted Time PHQ-9 Depression Total Score: 2 02/28/20 24 10:39 AM EDT A fall risk assessment has been complete d for the patient 02/28/2024 10:39 AM EDT documented as of this encounter Care Teams Student Relationship Specialty Start Date End Date Kathie Sánchez NP [address] [place] [address] PCP - Crow LAFLEUR 12/29/23 Kathie Sánchez NP [address] [place] [address] Nurse Practitioner Family Medicine 10/03/23 Kathie Sánchez NP [address] [place] [address] Nurse Practitioner Family Medicine 02/28/24 Andrade Pendleton OD [address] [place] [address] Referring Physician Optometry 01/02/25 documented as of this encounter
--- OUTSIDE RECORDS SUMMARY | 2025-06-08 17:30 | XMS_ITS | Encounter Summary ---
Author Organization [employer] Address [id number] [address] [place] [address] Care Team Providers Care Route Vending Machine Servicer Name Role Phone Curt De Dios MD Primary Care Provider [phone] Encounter Details Date Type Department Care Team (Latest Contact Info) Description 05/27/2025 Travel Social History Tobacco Use Types Packs/Day Years Used Date Smoking Tobacco: Former Cigarettes Smokeless Tobacco: Never Alcohol Use Standard Drinks/Week Comments No 0 (1 standard drink = 0.6 oz pure alcohol) quit drinking 2 years ago; august 2015 [facility] Utilities Answer Date Recorded In the past 12 months has th [employer], gas, oil, or water [employer] threatened to shut off services in your [...] Patient-Stated? Author Safe Discharge General Yes Linda Baht, RN Note: Evaluation of progress towards goal: safe transition back to [facility] for long-term care services. documented as of this encounter Visit Diagnoses Not on filedocumented in this encounter Additional Health Concerns Assessment Noted Time PHQ-9 Depression Total Score: 1 05/01/20 25 10:30 AM EDT documented as of this encounter Care Teams Route Vending Machine Servicer Relationship Specialty Start Date End Date Curt De Dios MD [address] [place] [address] PCP - General Family Medicine 05/27/25 documented as of this encounter
--- OUTSIDE RECORDS SUMMARY | 2025-06-08 17:31 | XMS_ITS | Encounter Summary ---
Author Organization [facility] Address [address] [facility] [place] [address] Care Team Providers Care Otr Truck Driver Name Role Phone Kathie Sánchez NP Unavailable [phone] Kathie Sánchez NP Unavailable [phone] Curt De Dios MD Primary Care Provider Kathie Sánchez NP Unavailable [phone] Lissa Garza MA Unavailable [phone] Andrade Pendleton OD Unavailable Encounter Details Date Type Department Care Team (Late st Contact Info) Description 09/17/2024 Orders Only [facility] [address] [place] [address] Kathie Sánchez STRUCTURES TECHNICIAN [address] [place] [address] Social History Tobacco Use Types Packs/Day Years [...] often do you attend chur ch or hindu services? Never 02/28/2024 Do you belong to any clubs o r organizations such as yarsani groups, unions, fraternal or athletic groups, or [...] Recorded Patient Health Questionnaire-2 Score 0 02/28/2024 [facility] - Occupational Stress Questionnaire [...] place to sleep or slept in a usp (including now)? No 02/28/2024 Sex and Gender [...] documented as of this encounter Care Teams Otr Truck Driver Relationship Specialty Start Date End Date Kathie Sánchez NP [address] [place] [address] PCP - Crow LAFLEUR 12/29/23 Curt De Dios MD [address] [place] [address] PCP - General Family Medicine 02/28/24 05/01/25 Kathie Sánchez NP [address] [place] [address] Nurse Practitioner Family Medicine 10/03/23 Kathie Sánchez NP [address] [place] [address] Nurse Practitioner Family Medicine 02/28/24 Lissa Garza MA [address] [place] [address] Family Medicine 12/05/24 03/06/25 Andrade Pendleton OD [address] [place] [address] Referring Physician Optometry 01/02/25 documented as of this encounter
--- OUTSIDE RECORDS SUMMARY | 2025-06-08 17:31 | XMS_ITS | Encounter Summary ---
Author Organization [facility] Address [address] [place] [address] Care Team Providers Care Uplands Division Director Name Role Phone Kathie Sánchez NP Unavailable [phone] Kathie Sánchez DENTAL ASSISTING INSTRUCTOR Unavailable [phone] Curt De Dios MD Primary Care Provider [phone] Kathie Sánchez NP Unavailable [phone] Lissa Garza MA Unavailable [phone] Andrade Pendleton OD Unavailable Encounter Details Date Type Department Care Team (Late st Contact Info) Description 01/14/2025 Orders Only [facility] [address] [facility] [place] [address] Althea Ag MD [address] [place] [address] Social History Tobacco Use Types [...] often do you attend chur ch or spiritism services? Never 02/28/2024 Do you belong to any clubs o r organizations such as orthodoxy groups, unions, fraternal or athletic groups, or [...] Recorded Patient Health Questionnaire-2 Score 0 02/28/2024 [facility] ional Health - Occupational [...] place to sleep or slept in a intermediate (including now)? No 02/28/2024 Sex and Gender [...] documented as of this encounter Care Teams Uplands Division Director Relationship Specialty Start Date End Date Kathie Sánchez NP [address] [place] [address] PCP - Crow LAFLEUR 12/29/23 Curt De Dios MD [address] [place] [address] PCP - General Family Medicine 02/28/24 05/01/25 Kathie Sánchez NP [address] [place] [address] Nurse Practitioner Family Medicine 10/03/23 Kathie Sánchez NP [address] [place] [address] Nurse Practitioner Family Medicine 02/28/24 Lissa Garza SC [address] [place] [address] Family Medicine 12/05/24 03/06/25 Andrade Pendleton OD [address] [place] [address] Referring Physician Optometry 01/02/25 documented as of this encounter
--- OUTSIDE RECORDS SUMMARY | 2025-06-08 17:31 | XMS_ITS | Encounter Summary ---
Author Organization [facility] Address [address] [place] [address] Care Team Providers Care Insurance Billing Specialist Name Role Phone Kathie Sánchez NP Unavailable [phone] Curt De Dios MD Primary Care Provider [phone] Kathie Sánchez NP Unavailable [phone] Debra Woods LPN Unavailable Unavailable Curt De Dios MD Primary Care Provider [phone] Kathie Sánchez NP Unavailable [phone] Lissa Garza MA Unavailable [phone] Andrade Pendleton OD Unavailable Encounter Details Date Type Department Care Team (Late st Contact Info) Description 01/18/2024 Orders Only [facility] [address] [place] [address] Kathie Sánchez NP [address] [place] [address] Social History Tobacco Use Types Packs/Day Years [...] Report (01/05/2024 2:21 PM EST) Kathie Sánchez GRADUATE ASSISTANT IN CLINIC/BEDSIDE ORDERABLES Fi nal Result documented in this encounter Visit Diagnoses Not on filedocumented in this encounter Care Teams Insurance Billing Specialist Relationship Specialty Start Date End Date Curt De Dios MD [address] [place] [address] PCP - General Family Medicine 11/11/23 02/27/24 Kathie Sánchez NP [address] [place] [address] PCP - Crow LAFLEUR 12/29/23 Curt De Dios MD [address] [place] [address] PCP - General Family Medicine 02/28/24 05/01/25 Kathie Sánchez NP [address] [place] [address] Nurse Practitioner Family Medicine 10/03/23 Debra Woods LPN Registered Nurse Family Medicine 02/28/24 02/29/24 Kathie Sánchez NP [address] [place] [address] Nurse Practitioner Family Medicine 02/28/24 Lissa Garza, MIQUEL [address] [place] [address] Family Medicine 12/05/24 03/06/25 Andrade Pendleton OD [address] [place] [address] Referring Physician Optometry 01/02/25 documented as of this encounter
--- OUTSIDE RECORDS SUMMARY | 2025-06-08 17:31 | XMS_ITS | Encounter Summary ---
Author Organization [facility] Address [address] [place] [address] Care Team Providers Care Middle [employer] Assistant Principal Name Role Phone Kathie Sánchez NP Unavailable [phone] Curt De Dios MD Primary Care Provider [phone] Kathie Sánchez NP Unavailable [phone] Debra Woods LPN Unavailable Unavailable Curt De Dios MD Primary Care Provider [phone] Kathie Sánchez NP Unavailable [phone] Lissa Garza MA Unavailable [phone] Andrade Pendleton OD Unavailable Encounter Details Date Type Department Care Team (Late st Contact Info) Description 11/13/2023 Abstract [facility] [address] [place] [id number] Kathie Sánchez NP [address] [place] [address] Social History Tobacco Use Types Packs/Day Years [...] on filedocumented in this encounter Care Teams Middle School Assistant Principal Relationship Specialty Start Date End Date Curt De Dios MD [address] [place] [address] PCP - General Family Medicine 11/11/23 02/27/24 Kathie Sánchez NP [address] [place] [address] PCP - Crow LAFLEUR 12/29/23 Curt De Dios MD [address] [place] [address] PCP - General Family Medicine 02/28/24 05/01/25 Kathie Sánchez NP [address] [place] [address] Nurse Practitioner Family Medicine 10/03/23 Debra Woods LPN Registered Nurse Family Medicine 02/28/24 02/29/24 Kathie Sánchez NP [address] [place] [address] Nurse Practitioner Family Medicine 02/28/24 Lissa Garza MA [address] [place] [address] Family Medicine 12/05/24 03/06/25 Andrade Pendleton OD [address] [place] [address] Referring Physician Optometry 01/02/25 documented as of this encounter
--- OUTSIDE RECORDS SUMMARY | 2025-06-08 17:31 | XMS_ITS | Encounter Summary ---
Author Organization [facility] Address [address] [place] [address] Care Team Providers Care Corporate Pilot Name Role Phone Kathie Sánchez CONCRETE BLOCK LAYER Unavailable [phone] Kathie Sánchez CONCRETE BLOCK LAYER Unavailable [phone] Curt De Dios MD Primary Care Provider [phone] Kathie Sánchez NP Unavailable [phone] Andrade Pendleton OD Unavailable Encounter Details Date Type Department Care Team (Late st Contact Info) Description 03/12/2025 Abstract [facility] [address] [place] [address] Unallocated, Noms Provider, [address] [place], [place] [address] Social History Tobacco Use Types Packs/Day Years [...] often do you attend chur ch or samaritan services? Never 02/28/2024 Do you belong to any clubs o r organizations such as scientology groups, unions, fraternal or athletic groups, or [...] Recorded Patient Health Questionnaire-2 Score 0 02/28/2024 [facility] - Occupational Stress [...] place to sleep or slept in a half-way (including now)? No 02/28/2024 Sex and Gender [...] documented as of this encounter Care Teams Corporate Pilot Relationship Specialty Start Date End Date Kathie Sánchez NP [address] [place] [address] PCP - Crow LAFLEUR 12/29/23 Curt De Dios MD [address] [place] [address] PCP - General Family Medicine 02/28/24 05/01/25 Kathie Sánchez NP [address] [place] [address] Nurse Practitioner Family Medicine 10/03/23 Kathie Sánchez NP [address] [place] [address] Nurse Practitioner Family Medicine 02/28/24 Andrade Pendleton OD [address] [place] [address] Referring Physician Optometry 01/02/25 documented as of this encounter
--- OUTSIDE RECORDS SUMMARY | 2025-06-08 17:31 | XMS_ITS | Encounter Summary ---
Author Organization [facility] Address [address] [facility] [place] [address] Care Team Providers Care Metal Neutralizer Name Role Phone Kathie Sánchez NP Unavailable [phone] Kathie Sánchez NP Unavailable [phone] Curt De Dios MD Primary Care Provider [phone] Kathie Sánchez NP Unavailable [phone] Lissa Garza MA Unavailable [phone] Andrade Pendleton OD Unavailable Encounter Details Date Type Department Care Team (Late st Contact Info) Description 11/29/2024 Orders Only [facility] [address] [place] [address] Kathie Sánchez DESK DIRECTOR [address] [place] [address] Social History Tobacco Use Types Packs/Day Years [...] often do you attend chur ch or adventism services? Never 02/28/2024 Do you belong to [...] Recorded Patient Health Questionnaire-2 Score 0 02/28/2024 [facility] Questionnaire [...] documented as of this encounter Care Teams Metal Neutralizer Relationship Specialty Start Date End Date Kathie Sánchez NP [address] [place] [address] PCP - Crow LAFLEUR 12/29/23 Curt De Dios MD [address] [place] [address] PCP - General Family Medicine 02/28/24 05/01/25 Kathie Sánchez NP [address] [place] [address] Nurse Practitioner Family Medicine 10/03/23 Kathie Sánchez NP [address] [place] [address] Nurse Practitioner Family Medicine 02/28/24 Lissa Garza MA [address] [place] [address] Family Medicine 12/05/24 03/06/25 Andrade Pendleton OD [address] [place] [address] Referring Physician Optometry 01/02/25 documented as of this encounter
--- OUTSIDE RECORDS SUMMARY | 2025-06-08 17:31 | XMS_ITS | Encounter Summary ---
Author Organization [facility] Address [address] [place] [address] Care Team Providers Care Non Destructive Testing Scientist Name Role Phone Kathie Sánchez PRODUCTION OPERATIONS MANAGER Unavailable [phone] Kathie Sánchez PRODUCTION OPERATIONS MANAGER Unavailable [phone] Curt De Dios MD Primary Care Provider Kathie Sánchez NP Unavailable [phone] Lissa Garza MA Unavailable [phone] Andrade Pendleton OD Unavailable Encounter Details Date Type Department Care Team (Late st Contact Info) Description 01/10/2025 Orders Only [facility] [address] [place] [address] Pedro Rose MD [address] [place] [address] Social History Tobacco Use Types [...] any clubs o r organizations such as mormon groups, unions, fraternal or athletic groups, or [...] Recorded Patient Health Questionnaire-2 Score 0 02/28/2024 [facility] Occupat ional Health - Occupational Stress [...] place to sleep or slept in a mcfp (including now)? No 02/28/2024 Sex and Gender [...] documented as of this encounter Care Teams Non Destructive Testing Scientist Relationship Specialty Start Date End Date aKthie Sánchez NP [address] [place] [address] PCP - Crow LAFLEUR 12/29/23 Curt De Dios MD [address] [place] [address] PCP - General Family Medicine 02/28/24 05/01/25 Kathie Sánchez NP [address] [place] [address] Nurse Practitioner Family Medicine 10/03/23 Kathie Sánchez NP [address] [place] [address] Nurse Practitioner Family Medicine 02/28/24 Lissa Garza MA [address] [place] [address] Family Medicine 12/05/24 03/06/25 Andrade Pendleton OD [address] [place] [address] Referring Physician Optometry 01/02/25 documented as of this encounter
--- OUTSIDE RECORDS SUMMARY | 2025-06-08 17:31 | XMS_ITS ---
Author Organization [facility] Address [address] [place] [address] Care Team Providers Care Career Services Officer Name Role Phone Curt De Dios MD Primary Care Provider [phone] Active Problems Problem Noted Date Diagnosed Date [...] 02/28/2024 Prostate cancer 02/28/2024 Encounter for subsequent [facility] wellness visit (AWV) in Medicare patient [...] bruising and upcoming surgery will follow-up with target developer Carpal tunnel syndrome of right wrist 10/27/2023 [...]
--- OUTSIDE RECORDS SUMMARY | 2025-06-08 17:31 | XMS_ITS | CCD ---
Author Organization [facility] Care Team Providers Care Linux System Engineer Name Role Phone Bryan Quick Attending Provider [phone] KATHIE SÁNCHEZ Primary Care Physician AICHHOLZ, MANAGER TECHNICAL TRAINING KATHIE Primary Care Unavailable DR LEONOR MA Consulting Unavailable SAMSA ., ROBERTO Admitting Unavailable SAMSA ., ROBERTO Attending Unavailable SAMSA ., ROBERTO Consulting Unavailable AICHHOLZ, MANAGER TECHNICAL TRAINING KATHIE Admitting Unavailable AICHHOLZ, MANAGER TECHNICAL TRAINING KATHIE Attending Unavailable AICHHOLZ, MANAGER TECHNICAL TRAINING KATHIE Consulting Unavailable AICHHOLZ, MANAGER TECHNICAL TRAINING KATHIE Primary Care Unavailable AICHHOLZ, MANAGER TECHNICAL TRAINING KATHIE Admitting Unavailable AICHHOLZ, MANAGER TECHNICAL TRAINING KATHIE Primary Care Unavailable AICHHOLZ, MANAGER TECHNICAL TRAINING KATHIE Attending Unavailable AICHHOLZ, MANAGER TECHNICAL TRAINING KATHIE Consulting Unavailable AICHHOLZ, MANAGER TECHNICAL TRAINING KATHIE Primary Care Unavailable DR LEONOR MA Consulting Unavailable SAMSA ., ROBERTO Admitting Unavailable SAMSA ., ROBERTO Attending Unavailable SAMSA ., ROBERTO Consulting Unavailable DR LEONOR MA Consulting Unavailable SAMSA ., ROBERTO Admitting Unavailable SAMSA ., ROBERTO Attending Unavailable SAMSA ., ROBERTO Consulting Unavailable DR ELSA NOBLE Admitting Unavailable DR OK CISNEROS V Consulting Unavailable AICHHOLZ, MANAGER TECHNICAL TRAINING KATHIE Primary Care Unavailable DR ELSA NOBLE Attending Unavailable DR ELSA NOBLE Consulting Unavailable SAMSA ., ROBERTO Admitting Unavailable AICHHOLZ, MANAGER TECHNICAL TRAINING KATHIE Primary Care Unavailable SAMSA ., ROBERTO Attending Unavailable SAMSA ., ROBERTO Consulting Unavailable SAMSA ., ROBERTO Admitting Unavailable AICHHOLZ, MANAGER TECHNICAL TRAINING KATHIE Primary Care Unavailable DR LEONOR MA Consulting Unavailable SAMSA ., ROBERTO Attending Unavailable SAMSA ., ROBERTO Consulting Unavailable Aichholz SKIRT CLIPPER, Kathie Unavailable Lanre CHANDLER, Curt Primary Care Provider Rufina VORA Attending Unavailable Rufina VORA Attending Unavailable Rufina VORA Attending Unavailable Rufina VORA Attending Unavailable Rufina VORA Admitting Unavailable Rufina VORA Referring Unavailable Rufina VORA Attending Unavailable Bhat DO, Peter Cruz Primary Care Provider Aichholz MANAGER TECHNICAL TRAINING, Kathie Rosen Primary Care Provider [phone] Bhat DOPeter Primary Care Provider Aichholz SKIRT CLIPPER, Kathie Unavailable Aichholz SKIRT CLIPPER, Kathie Unavailable Curt Lowry MD Primary Care Provider Aichholz SKIRT CLIPPER, Kathie Unavailable Umu Schultz Unavailable Unavailable ENGELER, [...] Referring Unavailable ENGELER, G GOPAL Attending Unavailable BHAT PETER A Primary Care Unavailable AMANDEEP CRISOSTOMO Attending Unavailable PETER BHAT Primary Care Unavailable ENGELER, G GOPAL Attending [...] Care Unavailable Lissa Garza MA Unavailable Unavailable Keerthi DQUUE Andrade R Unavailable KAREN VALDOVINOS Attending Unavailable PRINCESS KATHIE Attending Unavailable JOVANIHOLMatias, KATHIE Attending Unavailable JOVANIHOLMatias, KATHIE Attending Unavailable Rufina VORA Attending Unavailable Rufina VORA Attending Unavailable Diana Bush MD Primary Care Provider ROSS, DIANA E Referring Unavailable ROSS, DAINA E Primary Care Unavailable ROSS, DIANA E Referring Unavailable ROSS, DIANA E Primary Care Unavailable LEANDRA, MOHAMED F Admitting Unavailable LEANDRA, MOHAMED F Attending Unavailable ROSS, DIANA E Primary Care Unavailable LEANDRA, MOHAMED F Referring Unavailable ROSS, DIANA E Primary Care Unavailable EDUARDO RENE Attending Unavailable EDUARDO RENE Admitting Unavailable DENIS ANGEL Attending Unavailable RENE FAJARDO Referring Unavailable EDUARDO RENE Referring Unavailable MARIMAR RENTERIAAR Referring Unavailable RENE FAJARDO Attending Unavailable LEANDRA, MOHAMED F Attending Unavailable LEANDRA, MOHAMED F Referring Unavailable CURT LOWRY Primary Care Unavailable Curt Lowry MD Primary Care Provider [phone] LEANDRA, MOHAMED F Attending Unavailable ROSS, DIANA E Referring Unavailable ROSS, DIANA E Primary Care Unavailable ROSS, DIANA E Referring Unavailable ROSS, DIANA E Primary Care Unavailable ROSS, DIANA E Referring Unavailable ROSS, DIANA E Primary Care Unavailable LEANDRA, MOHAMED F Attending Unavailable DIANA BUSH Referring Unavailable CURT LOWRY Primary Care Unavailable Allergies Allergy Classification Reported Allergen(s) Allergy Type Date of Onset Reaction(s) Facility (2 sources) No Known Medication Allergies; Translations: [No Known Medication Allergies] Propensity to adverse reactions (disorder) [facility] Repository Medications Current Medications Medication Drug Class(es) Dates Sig (Normalized) Sig (Original) acetaminophen 325 mg / oxyCODONE hydrochloride 5 mg oral tablet (4 sources) Opioid Agonist oxyCODONE-acetam i nophen (PERCOCET) 5-325 mg per tablet Indications: pain Take 1 tablet by mouth every 4 (four) hours as needed for pain Indications: pain. Max Daily Amount: 6 tablets Active amoxicillin 500 mg oral tablet (1 source) Penicillin-class Antibacterial Start: 06-24-2023 take 4 tablets by mouth once at mealtime amoxicillin (Amoxil) 500 MG tablet Indications: History of hip replacement, unspecified laterality 4 tabs PO once 30-60 mins before procedure with food 4 tablet 3 06/24/2023 Active apixaban 2.5 mg oral tablet (4 sources) Factor Xa Inhibitor take 1 tablet by mouth in the morning, then take 1 tablet by mouth at bedtime apixaban (ELIQUIS) 2.5 mg tablet Take 1 tablet (2.5 mg total) by mouth in the morning and 1 tablet (2.5 mg total) before bedtime. afib. Active Tessalon Perles (20 sources) Non-narcotic Antitussive Start: 08-05-2022 Tessalon Perles Oral, q12hr, PRN Cough Start Date: 08/05/22 Status: Ordered take [address] [facility] three times daily as needed for [...] not swallow.. Active take 2 puff(s) by in halation in the morning budesonide-formoteroL (SYMBICORT) 160-4. 5 mcg/actuation inhaler Inhale 2 puffs in the morning and 2 puffs before bedtime. Respiratory failure. take 2 puff(s) by in halation in the morning budesonide-formoteroL (SYMBICORT) 160-4. 5 mcg/actuation inhaler Inhale 2 puffs in the morning and 2 puffs before bedtime. Respiratory failure. Active take 2 puff(s) by mouth twice [...] Refill(s) 0 Start Date: 05/17/22 Status: Ordered cefdinir 300 mg oral capsule (6 sources) Cephalosporin Antibacterial Start: 03-01-2025 End: 03-10-2025 cefdinir (Omnicef) 300 MG capsule 03/01/2025 Active Comirnaty 30 MCG/0.3ML suspension prefilled syringe (2 [...] EYES 2 TIMES A DAY. 05/14/2024 Active cycloSPORINE (RESTASIS) 0.05 % ophthalmic emulsion (7 sources) Start: 05-14-2024 take 1 drop(s) into the eye(s) every twelve hours cycloSPORINE (RESTASIS) 0.05 % ophthalmic emulsion Administer 1 drop to both eyes every 12 (twelve) hours. Tear production 05/14/2024 Start: 05-14-2024 take 1 drop(s) into the eye(s) every twelve hours cycloSPORINE (RESTASIS) 0.05 % ophthalmic emulsion Administer 1 drop to both eyes every 12 (twelve) hours. Tear production 05/14/2024 Active Start: 05-14-2024 take 1 drop(s) into the eye(s) every twelve hours cycloSPORINE (RESTASIS) 0.05 % ophthalmic emulsion Administer 1 drop to both eyes every 12 (twelve) hours. 05/14/2024 Active 24 hr dilTIAZem hydrochloride 180 mg extended release oral capsule (20 sources) Calcium Channel Torres Start: 05-17-2022 End: 01-14-2025 take 1 capsule by mouth once daily dilTIAZem XR (Dilacor XR) 180 MG 24 hr capsule Indications: Atrial fibrillation (HCC) Take 1 capsule (180 mg) by mouth Daily 90 capsule 1 10/16/2024 Active Start: 05-17-2022 Dilt-XR 180 mg /24 hours oral capsule, extended release Refills(s) 0 Start Date: 05/17/22 Status: Ordered take [address] [facility] every twenty-four hours in the morning diltiazem XR (DILACOR XR) 180 MG 24 hr capsule Indications: hypertension Take 1 capsule (180 mg total) by mouth in the morning. Indications: high blood pressure. Active docusate sodium 100 mg oral capsule (7 sources) Start: 03-04-2025 take 1 capsule by mouth in the morning, then take 1 capsule by mouth at bedtime docusate sodium (COLACE) 100 mg capsule Indications: constipation Take 1 capsule (100 mg total) by mouth in the morning and 1 capsule (100 mg total) before bedtime. Indications: constipation. 03/04/2025 Active doxycycline hyclate 100 mg oral tablet (20 sources) Tetracycline-class Drug Start: 05-16-2013 take 1 tablet by mouth twice daily doxycycline 100 mg tablet Take 1 tablet by mouth twice daily. 14 tablet 0 05/16/2013 Active fluticasone propionate 0.05 mg/actuat metered dose nasal spray (4 sources) Corticosteroid take 1 spray(s) nasal route in the morning fluticasone propionate (FLONASE) 50 mcg/actuation nasal spray Indications: allergic rhinitis Administer 1 spray into each nostril in the morning. Indications: inflammation of the nose due to an allergy. Active fluticasone / salmeterol (20 sources) Corticosteroid, beta2-Adrenergic Agonist take 1 puff(s) by inhalation twice daily fluticasone-salmet rome (ADVAIR DISKUS) 250-50 mcg/dose DsDv Inhale 1 Puff as instructed twice daily. Active take 1 puff(s) by in halation twice daily fluticasone-salmeterol (ADVAIR DISKUS) 2 50-50 mcg/dose DsDv Inhale 1 Puff as instructed twice daily. 0 Active 12 hr guaiFENesin 600 mg extended release oral tablet (20 sources) take 1 tablet by dominique th once guaiFENesin (MUCINEX) 600 mg tablet extended release 12hr Take 1 tablet (600 mg total) by mouth every 12 (twelve) hours. copd Active take 1 tablet by dominique th in the morning, then take 1 tablet by mouth every twelve hours at bedtime guaiFENesin (Mucinex) 600 MG 12 hr table t Take 1,200 mg by mouth in the morning and 1,200 mg before bedtime. Do not crush, chew, or split.. Active hydrOXYzine hydrochloride 25 mg oral tablet (1 source) Antihistamine Start: 03-06-2025 End: 03-19-2025 take 1 tablet by mouth every eight hours as needed for anxiety hydrOXYzine (ATARAX) 25 mg tablet Take 1 tablet (25 mg total) by mouth every 8 (eight) hours as needed for anxiety. 03/06/2025 03/19/2025 Active levoFLOXacin 750 mg oral tablet (5 sources) Quinolone Antimicrobial Start: 03-01-2025 levoFLOXacin (Levaquin) 750 MG tablet 03/01/2025 Active melatonin 5 mg chewable tablet (7 sources) melatonin 5 mg tablet,chewable Chew 2 tablets and swallow nightly. sleep Active metoclopramide 10 mg oral tablet (15 sources) Dopamine-2 Receptor Antagonist Start: 02-22-2025 End: 03-24-2025 take 1 tablet by mouth in the morning, then take 1 tablet by mouth in the evening, then take 1 tablet by mouth at bedtime metoclopramide (Reglan) 10 MG tablet Indications: Nausea Take 1 tablet (10 mg) by mouth in the morning and 1 tablet (10 mg) in the evening and 1 tablet (10 mg) before bedtime. 90 tablet 02/22/2025 Active mirtazapine 15 mg oral tablet (7 sources) Start: 03-06-2025 take 2 tablets by mouth once daily REMERON 15 mg tablet Indications: major depressive disorder Take 2 tablets (30 mg total) by mouth nightly Indications: major depressive disorder. 03/06/2025 Active Start: 03-06-2025 take 1 tablet by dominique once daily REMERON 15 mg tablet Take 1 tablet (15 mg total) by mouth nightly. 03/06/2025 Active pantoprazole 40 mg delayed release oral tablet (20 sources) Proton Pump Inhibitor Start: 08-05-2022 take 1 dose by mouth once daily Start: 05-30-2019 End: 05-01-2025 take 1 tablet by mouth before mealtime pantoprazole (ProtoNix) 40 MG EC tablet Indications: Gastro-esophageal reflux disease without esophagitis Take 1 tablet (40 mg) by mouth in the morning. Take before meals. 90 tablet 1 10/16/2024 Active Tmzxotuqmss-Jqqxuxzw-Mjvctni ac 1-0.5-0.075 % solution (11 sources) Start: 01-02-2025 Udsphuiiuzq-Ludhkwbo-Nwyucsh ac 1-0.5-0.075 % solution Indications: Age-related nuclear cataract of both eyes Administer 1 drop into affected eye(s) in the morning and 1 drop at noon and 1 drop in the evening and 1 drop before bedtime. 10 mL 1 01/02/2025 Active predniSONE 50 mg oral tablet (20 sources) Start: 03-01-2025 predniSONE (Deltasone) 50 MG tablet 03/01/2025 Active Start: 01-02-2024 predniSONE (DE LTASONE) 10 mg [...] 0 Start Date: 05/17/22 Status: Ordered Start: 06-06-2019 End: 03-27-2025 take 1 tablet by mouth once daily DALIRESP 500 mcg tablet Take 500 mcg by mouth daily. 0 06/06/2019 03/27/2025 Discontinued (Therapy completed) take 500 ug by mouth in the morning ROFLUMILAST ORAL Take 500 mcg by mouth in the morning. COPD. take 500 ug by mouth in the morning ROFLUMILAST ORAL Take 500 mcg by mouth in the morning. COPD. Active take 500 ug by mouth in the morning ROFLUMILAST ORAL Take 500 mcg by mouth in the morning. Active Sodium Phosphate, Dibasic / Sodium Phosphate, Monobasic (1 source) Start: 04-17-2024 Fleet Enema 13 3 mL, Rectal, Once, 133 mL, Refill(s) 0, [facility]/pharmacy #[id number], 175, cm, 01/02/24 12:45:00 EST, Height/Length Dosing, 63.1, kg, 01/02/24 12:45:00 EST, Weight Dosing Start Date: 04/17/24 Status: Ordered 60 actuat tiotropium 0.0025 mg/actuat inhalation spray (20 sources) Anticholinergic Start: 05-17-2022 take 1 puff(s) [...] Inhale 2 puffs in the morning. Active End: 03-27-2025 take 1 capsule by inhalation once tiotropium (SPIRIVA) 18 mcg per inhalation capsule Place 1 capsule into inhaler and inhale once daily. 2.5 mcg per actuation 03/27/2025 Discontinued (Therapy completed) take 1 capsule by in halation once daily tiotropium (SPIRIVA WITH HANDIHALER) 18 mcg inhalation capsule Inhale 18 mcg as instructed once daily. Active tiZANidine 4 mg oral tablet (20 sources) Central alpha-2 Adrenergic Agonist Start: 09-13-2024 [...] / HYDROcodone bitartrate 5 mg oral tablet (7 sources) Opioid Agonist Start: 04-30-2025 End: 05-01-2025 take 1 tablet by mouth every six hours as needed for pain 1 tablet, oral, Every 6 hours PRN, severe pain - pain scale 7-10, Starting on Tue04/30/25 at 2159, Look-alike/sound- alike medication - verify indication for use. Start: 12-05-2024 End: 05-11-2025 take 1 tablet by mouth every four hours for pain HYDROcodone-acetaminophen (Marion) 5-325 MG tablet Indications: Other chronic pain Take 1 tablet by mouth every 4 (four) hours if needed for severe pain 180 tablet 04/11/2025 05/11/2025 Active Start: 12-05-2024 HYDROcodone-ac etaminophen (Marion) 5-325 MG tablet 12/05/2024 Active albuterol 0.83 mg/ml inhalation solution (20 sources) beta2-Adrenergic Agonist Start: 11-28-2024 End: 05-01-2025 take 2.5 mg by inhalation every six hours as needed for dyspnea and wheezing 2.5 mg, nebulization, Every 6 hours PRN, shortness of breath, wheezing, Starting on Tue04/30/25 at 2159, Implement INPATIENT/ED Bronchodilator Clinical Practice Guidelines? Yes Start: 11-28-2024 albuterol (2.5 MG/3ML) 0.083% nebulizer solution INHALE 1 VIAL VIA NEBULIZER EVERY 6 HOURS NEEDED FOR SHORTNESS OF BREATH OR WHEEZING 11/28/2024 Active take 2 puff(s) by in halation every four hours for wheezing albuterol HFA 90 mcg/act inhaler Inhale 2 puffs every 4 (four) hours if needed for wheezing Active take 2 puff(s) by in halation every six hours as needed for chronic obstructive pulmonary disease albuterol (PROVENTIL HFA;VENTOLIN HFA) 90 mcg/actuation inhaler Indications: chronic obstructive pulmonary disease Inhale 2 puffs every 6 (six) hours as needed for wheezing Indications: chronic obstructive pulmonary disease. Active ALBUTEROL SULFAT E (PROVENTIL HFA INHALATION) Inhale as instructed. Active ALBUTEROL SULFAT E (PROVENTIL HFA INHALATION) Inhale as instructed. 0 Active albuterol 0.833 mg/ml / ipratropium bromide 0.167 mg/ml inhalation solution (7 sources) Anticholinergic, beta2-Adrenergic Agonist Start: 04-30-2025 End: 04-30-2025 3 mL, nebulization, Once as needed, shortness of breath, Starting on Tue04/30/25 at 1030, For 1 dose, Pre-op, Implement INPATIENT/ED Bronchodilator Clinical Practice Guidelines? Yes take 3 mL by inhalat ion four times daily ipratropium-albuteroL (DUONEB) 0.5 mg-3 mg(2.5 mg base)/3 mL nebulizer Indications: chronic obstructive pulmonary disease with bronchospasms Inhale 3 mL by nebulization 4 (four) times a day Indications: bronchi muscle spasm resulting from COPD. Active aprepitant 40 mg oral capsule (1 source) Substance P/Neurokinin-1 Receptor Antagonist Start: 04-30-2025 End: 04-30-2025 take 40 mg by mouth once 40 mg, oral, Once, On Tue04/30/25 at 1000, For 1 dose, Pre-op aspirin 81 mg delayed release oral tablet (20 sources) Platelet Aggregation Inhibitor, Nonsteroidal Anti-inflammatory Drug Start: 08-05-2022 take 81 mg by mouth once daily aspirin 81 mg, Oral, Daily Start Date: 08/05/22 Status: Ordered Start: 05-17-2022 [facility] ASP[facility] 81 MG TABLET [facility] ASP[facility]IN [facility] 81 MG TABLET Start Date: 05/17/22 Status: Ordered Start: 05-21-2019 End: 05-01-2025 take 81 mg by mouth once daily 81 mg, oral, Daily, Fir st dose on Tue04/30/25 at 1415, Do not crush or chew. atorvastatin 10 mg oral tablet (5 sources) HMG-CoA Reductase Inhibitor Start: 04-30-2025 End: 05-01-2025 take 10 mg by mouth once daily 10 mg, oral, Nightly, First dose on Tue04/30/25 at 2200, Look-alike/sound-alike medication - verify indication for use. take 1 tablet by mouth at bedtim e atorvastatin (LIPITOR) 40 mg tablet Indications: hyperlipidemia Take 1 tablet (40 mg total) by mouth before bedtime. Indications: excessive fat in the blood. Active benzocaine 0.2 mg/mg topical ointment (2 sources) Standardized Chemical Allergen End: 03-27-2025 benzocaine (BOIL RELIEF) 20 % ointment Apply 1 application topically 2 (two) times a day. left buttock 03/27/2025 Discontinued (Therapy completed) budesonide/formoterol fumarate (SYMBICORT INHL) (2 sources) End: 03-27-2025 budesonide/formoterol fumarate (SYMBICORT INHL) Inhale. 03/27/2025 Discontinued (Duplicate Listing) budesonide/formo terol fumarate (SYMBICORT INHL) Inhale. Active busPIRone hydrochloride 10 mg oral tablet (7 sources) Start: 04-30-2025 End: 05-01-2025 take 10 mg by mouth three times daily for anxiety 10 mg, oral, 3 times daily, First dose on Tue04/30/25 at 2215, Look-alike/sound-alike medication - verify indication for use. Avoid grapefruit juice., Indications: generalized anxiety disorder calcium carbonate 1250 mg / cholecalciferol 200 unt oral tablet (6 sources) Vitamin D Start: 05-02-2019 End: 03-27-2025 take 1 tablet by mouth twice daily OS-JUAN 500 + D3 500 mg(1,250mg) -200 unit per tablet Take 1 tablet by mouth 2 (two) times a day. 5 05/02/2019 03/27/2025 Discontinued (Therapy completed) take 1 tablet by dominique th once in the morning calcium carbonate-vitamin D3 (OSCAL 500 + D) 500 mg (1,250 mg) - 200 units per tablet Take 1 tablet by mouth in the morning and 1 tablet in the evening. Take with meals. supplement. Active calcium chloride 0.0014 meq/ml / potassium chloride 0.004 meq/ml / sodium chloride 0.103 meq/ml / sodium lactate 0.028 meq/ml injectable solution (1 source) Start: 04-30-2025 End: 05-01-2025 take 50 mL intravenously every hour 50 mL/hr, intravenous, Continuous, Starting on Tue04/30/25 at 1415, For 1 day clopidogrel 75 mg oral tablet (5 sources) P2Y12 Platelet Inhibitor Start: 05-01-2025 End: 05-01-2025 take 75 mg by mouth once daily 75 mg, oral, Daily, First dose on Tue05/01/25 at 0900, Look-alike/sound-a like medication - verify indication for use. 1 ml fentaNYL 0.05 mg/ml injection (3 sources) Opioid Agonist Start: 04-30-2025 End: 04-30-2025 25 mcg, intravenous, Every 5 min PRN, Pain Scale 1-5, Starting on Tue04/30/25 at 1356, PACU (only), Up to a maximum dose of 150 mcg. Look-alike/sound-a like medication - verify indication for use. End: 03-27-2025 fentaNYL (DURAGESIC) 12 mcg/ hr Place 1 patch on the skin every 3 (three) days. 03/27/2025 Discontinued (Therapy completed) 14 actuat fluticasone furoate 0.1 mg/actuat / vilanterol 0.025 mg/actuat dry powder inhaler (2 sources) Corticosteroid, beta2-Adrenergic Agonist End: 03-27-2025 take 1 puff(s) by inhalation once daily fluticasone-vilanterol (BREO ELLIPTA) 100-25 mcg/dose blister with device Inhale 1 puff daily. 03/27/2025 Discontinued (Therapy completed) folic acid 1 mg / polysaccharide iron complex 150 mg / vitamin b12 0.025 mg oral capsule (2 sources) Vitamin B12 End: 03-27-2025 take 1 capsule by mouth once daily iron ps pcfmptq-[id number] acid (NIFEREX FORTE) 150-25-1 mg-mcg-mg capsule Take 1 capsule by mouth daily. 03/27/2025 Discontinued (Therapy completed) 60 actuat formoterol fumarate 0.005 mg/actuat / mometasone furoate 0.2 mg/actuat metered dose inhaler (2 sources) Corticosteroid, beta2-Adrenergic Agonist Start: 05-29-2019 End: 03-27-2025 take 2 puff(s) by mouth twice daily DULERA 200-5 mcg/actuation inhaler INHALE 2 PUFFS BY MOUTH TWICE A DAY *RINSE MOUTH AFTER USE* 5 05/29/2019 03/27/2025 Discontinued (Therapy completed) 1 ml hydrALAZINE hydrochloride 20 mg/ml injection (1 source) Arteriolar Vasodilator Start: 04-30-2025 End: 05-01-2025 take 10 mg intravenously every six hours as needed 10 mg, intravenous, Every 6 hours PRN, high blood pressure, Starting on Tue04/30/25 at 1412, For systolic blood pressure greater than 160 mmHg, hold for Hr > 100 Look-alike/sound-alike medication - verify indication for use. Administer IV doses as a slow IV push; maximum rate: 5 mg/minute. ibuprofen 800 mg oral tablet (20 sources) Nonsteroidal Anti-inflammatory Drug Start: 03-01-2025 End: 05-01-2025 ibuprofen (MOTRIN) 800 mg tablet Indications: pain Take 1 tablet (800 mg total) by mouth in the morning and 1 tablet (800 mg total) at noon and 1 tablet (800 mg total) before bedtime. Indications: pain. 03/01/2025 05/01/2025 Discontinued (Stop Taking at Discharge) Start: 09-13-2024 End: 10-13-2024 take 1 tablet [...] (ADVIL ORAL) Take by mouth. 0 Active 4 ml labetalol hydrochloride 5 mg/ml cartridge (1 source) beta-Adrenergic Torres Start: 04-30-2025 End: 05-01-2025 take 20 mg intravenously every six hours as needed 20 mg, intravenous, Every 6 hours PRN, high blood pressure, Starting on Tue04/30/25 at 1412, For systolic blood pressure greater than 160 mmHg, hold for Hr magnesium sulfate 0.0277 meq/ml / potassium sulfate 0.0374 meq/ml / sodium sulfate 0.257 meq/ml oral solution (2 sources) Start: 09-26-2020 End: 03-27-2025 sodium,potassium ,mag sulfates (SUPREP BOWEL PREP KIT) 17.5-3.13-1.6 gram recon soln 177 ml,actual weight, 2 times daily, Oral 1 kit 09/26/2020 03/27/2025 Discontinued (Therapy completed) 24 hr metoprolol succinate 25 mg extended release oral tablet (5 sources) beta-Adrenergic Torres Start: 05-01-2025 End: 05-01-2025 take 50 mg by mouth once daily for hypertension 50 mg, oral, Daily, First dose on Tue05/01/25 at 0900, Look-alike/sound -alike medication - verify indication for use. Do not crush or chew., Indications: hypertension take 1 tablet by dominique th every twenty-four hours in the morning metoprolol succinate XL (TOPROL XL) 50 m g 24 hr tablet Indications: hypertension Take 1 tablet (50 mg total) by mouth in the morning. Indications: high blood pressure. Active 2 ml ondansetron 2 mg/ml injection (7 sources) Serotonin-3 Receptor Antagonist Start: 04-30-2025 End: 05-01-2025 take 4 mg intravenously every four hours as needed for nausea take 1 tablet by dominique th every eight hours as needed for nausea and vomiting ondansetron (ZOFRAN) 4 mg tablet Take 1 tablet (4 mg total) by mouth every 8 (eight) hours as needed for nausea or vomiting. nausea Active prasterone 50 mg oral capsule (2 sources) Start: 06-04-2019 End: 03-27-2025 take 2 capsules by mouth once daily DHEA 50 mg capsule Take 2 capsules by mouth daily. 5 06/04/2019 03/27/2025 Discontinued (Therapy completed) rivaroxaban 10 mg oral tablet (2 sources) Factor Xa Inhibitor End: 03-27-2025 take 1 tablet by mouth once daily rivaroxaban (XARELTO) 10 mg tablet Take 10 mg by mouth daily. 03/27/2025 Discontinued (Therapy completed) 125 ml sodium chloride 9 mg/ml prefilled syringe (20 sources) Start: 04-30-2025 End: 05-01-2025 3 mL, intravenous, Every 12 hours scheduled, First dose on Tue04/30/25 at 1415 Start: 04-30-2025 End: 05-01-2025 sodium chloride 0.9 % nebulizer solution Take 3 mL by nebulization if needed for wheezing Active traZODone hydrochloride 100 mg oral tablet (7 sources) Serotonin Reuptake Inhibitor Start: 04-30-2025 End: 05-01-2025 take 50 mg by mouth once daily for depression 50 mg, oral, Nightly, First dose on Tue04/30/25 at 2200, Look-alike/sound-alike medication - verify indication for use., Indications: insomnia associated with depression take 1 tablet by mouth once willie y traZODone (DESYREL) 50 mg tablet Indications: insomnia associated with depression Take 1 tablet (50 mg total) by mouth nightly Indications: insomnia associated with depression. Active Problems Active Problems Problem Classification Problem Date Documented Date Episodic/Chronic Anxiety disorders (20 sources) Anxiety disorder; Translations: [Anxiety disorder, unspecified] Onset: 11-17-2017 02-28-2024 Chronic Aortic; peripheral; and visceral artery aneurysms (20 sources) Abdominal aortic aneurysm without rupture; Translations: [Abdominal aortic aneurysm (AAA) without rupture] Onset: 04-10-2024 04-10-2024 Chronic Cancer of prostate (20 sources) Malignant neoplasm of prostate; Translations: [Malignant tumor of prostate] Onset: 06-06-2023 Chronic Cardiac dysrhythmias (20 sources) Atrial fibrillation; Translations: [Unspecified atrial fibrillation] Onset: 11-12-2023 11-12-2023 Chronic Cataract (12 sources) Bilateral age-related nuclear cataracts; Translations: [Age-related nuclear cataract, bilateral] Onset: 01-02-2025 01-02-2025 Chronic Chronic obstructive pulmonary disease and bronchiectasis (20 sources) Emphysema, unspecified; Translations: [Chronic obstructive lung disease] Onset: 05-16-2013 05-16-2013 Chronic Coagulation and hemorrhagic disorders (20 sources) Thrombophilia; Translations: [Other thrombophilia] Onset: 09-13-2024 09-13-2024 Chronic Coronary atherosclerosis and other heart disease (2 sources) Atherosclerotic heart disease of [place] coronary artery without angina pectoris; Translations: [Atherosclerotic heart disease of [place] coronary artery without angina pectoris] Onset: 04-05-2025 Chronic Coronary atherosclerosis and other heart disease (2 sources) Presence of coronary angioplasty implant and graft; Translations: [Presence of coronary angioplasty implant and graft] Onset: 05-08-2025 Episodic Disorders of lipid metabolism (20 sources) Mixed hyperlipidemia; Translations: [Mixed hyperlipidemia] Onset: 02-28-2024 02-28-2024 Chronic Esophageal disorders (20 sources) Gastroesophageal reflux disease; Translations: [Gastro-esophageal reflux disease without esophagitis] Onset: 12-06-2023 04-19-2022 Chronic Gout and other crystal arthropathies (20 sources) Gout; Translations: [Gout, unspecified] Onset: 02-28-2024 04-19-2022 Chronic Osteoarthritis (20 sources) Arthritis; Translations: [Osteoarthritis of left hip joint] Onset: 11-14-2017 04-19-2022 Chronic Other lower respiratory disease (6 sources) Shortness of breath; Translations: [SHORTNESS OF BREATH] Onset: 05-03-2022 Episodic Other nervous system disorders (20 sources) Neuropathy; Translations: [Polyneuropathy, unspecified] Onset: 02-28-2024 04-19-2022 Chronic Other nervous system disorders (20 sources) Carpal tunnel syndrome of right wrist; Translations: [Carpal tunnel syndrome, right upper limb] Onset: 10-27-2023 10-27-2023 Chronic Other nervous system disorders (20 sources) Chronic pain; Translations: [Other chronic pain] Onset: 09-13-2024 09-13-2024 Chronic Other screening for suspected conditions (not mental disorders or infectious disease) (4 sources) Encounter for screening for malignant neoplasm of prostate; Translations: [Screening for malignant neoplasm done] Onset: 05-17-2022 Episodic Other skin disorders (4 sources) Sebaceous cyst of skin; Translations: [Sebaceous cyst] Onset: 05-17-2022 Episodic Peripheral and visceral atherosclerosis (20 sources) Atherosclerosis of aorta; Translations: [Atherosclerosis of aorta] Onset: 09-13-2024 09-13-2024 Chronic Pleurisy; pneumothorax; pulmonary collapse (10 sources) Focal atelectasis 04-19-2022 Episodic Residual codes; unclassified (1 source) Pain, unspecified; Translations: [Pain, unspecified] Onset: 03-12-2025 Episodic Respiratory failure; insufficiency; arrest (adult) (20 sources) Chronic hypoxemic respiratory failure; Translations: [Chronic respiratory failure with hypoxia] Onset: 02-28-2024 04-19-2022 Chronic Spondylosis; intervertebral disc disorders; other back problems (20 sources) Degeneration of cervical intervertebral disc; Translations: [Other cervical disc degeneration, unspecified cervical region] Onset: 09-13-2024 09-13-2024 Chronic Unclassified (10 sources) Patient encounter status 05-17-2022 Unclassified (10 sources) Sebaceous cyst of skin 05-17-2022 Unclassified (1 source) COUGH, UNSPECIFIED; Translations: [COUGH, UNSPECIFIED] Onset: 05-06-2022 Unclassified (1 source) CONTACT W/AND (SUSP) EXPOS COVID-19; Translations: [CONTACT W/AND (SUSP) EXPOS COVID-19] Onset: 05-06-2022 Unclassified (4 sources) Autogenerated Problem Onset: 03-13-2025 03-13-2025 Unclassified (1 source) Thoracic aortic aneurysm, without rupture, unspecified; Translations: [Thoracic aortic aneurysm, without rupture, unspecified] Onset: 04-30-2025 Unclassified (1 source) 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] Onset: 04-30-2025 Unclassified (1 source) Aneurysm of the descending thoracic aorta, without rupture; Translations: [Aneurysm of the descending thoracic aorta, without rupture] Onset: 04-30-2025 Unclassified (1 source) tevar 04-09-25 testing done [place] angiogram chest 6/ Onset: 05-30-2025 Unclassified (1 source) Post-op Aneurysm Repair Onset: 03-07-2025 Past or Other Problems Problem Classification Problem Date Documented Da te Episodic/Chronic Alcohol-related disorders (20 sources) Alcohol dependence, uncomplicated; Translations: [Alcoholism] Onset: 05-16-2013 Resolved: 12-17-2024 05-16-2013 Chronic Mood disorders (20 sources) Mood disorders Onset: 02-28-2024 Resolved: 05-01-2025 02-28-2024 Nausea and vomiting (9 sources) Nausea; Translations: [Nausea] Onset: 02-22-2025 02-22-2025 Episodic Other aftercare (1 source) Other director long term care (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 therapy; Translations: [OTH RESIDENTIAL CURRENT DRUG THERAPY] Onset: 08-13-2022 Episodic Other [...] Onset: 08-12-2022 Episodic Other lower respiratory disease (20 sources) Lung mass; Translations: [Other nonspecific abnormal [...] Spondylosis; intervertebral disc disorders; other back problems (20 sources) Lumbar radiculopathy; Translations: [Radiculopathy, lumbar region] Onset: 02-28-2024 02-28-2024 Episodic Substance-related disorders (20 sources) Marijuana user; Translations: [Cannabis use, unspecified, uncomplicated] Onset: 05-16-2013 05-16-2013 Episodic Unclassified (20 sources) Onset: 02-28-2024 02-28-2024 Results Test Name Value Interpretation Reference Range Facility PT PSA, DIAGNOSTICon 06-05 PROSTATE SPECIFIC ANTIGEN DX 0.8 ng/mL NINF - 4.00 ng/mL [facility] CT CTA ABD AND PELVISon CT CTA ABD AND PELVIS CT CTA ABD AND PELVIS CLINICAL INFORMATION: . Penetrating atherosclerotic ulcer of [...] Rudy Paige MD on 05/29/2025 9:30 AM [facility] CT CTA CHESTon 05-29-[address] CTA CHEST CLINICAL INFORMATION: . Penetrating atherosclerotic ulcer of [...] Rudy Paige MD on 05/29/2025 9:30 AM Normal [facility] 37on 05-08-2025 37 1. Stop aspirin. 2. Continue clopidogrel 75 mg once daily. 3. Increase Eliquis to 5 mg twice daily. 4. Continue metoprolol succinate 50 mg once daily. This is to replace the diltiazem that you used to take in the past. 5. Follow-up with pulmonary for the shortness of breath. 6. Follow-up with Dr. Piper from vascular surgery for management of the aortic ulcer. 7. Follow-up in cardiology in 6 months. Normal [facility] Follow-Upon 05-08-2025 Follow-Up [id number] Mateo Stearns Schuyler 1960 M Date Provider Department Center 05/08/2025 [facility] Family History Problem Relation Age of Onset Emphysema Father Accidental Sister Family Status - Relation Status Age at Mother Father Sister Level of Service:55806 MS OFFICE/OUTPATIENT ESTABLISHED MOD MDM 30 MIN [facility] Orders Onlyon 05-08-2025 Orders Only [id number] Mateo Stearns 1960 M Date Provider Department [place] 05/08/2025 [id number], HISTORICAL [facility] Family History Problem Relation Age of Onset Emphysema Father Accidental Sister Family Status - Relation Status Age at Mother Father Sister Normal [facility] BASIC METABOLIC PANELon 06-0 Anion gap [Moles/Vol] 8 mmol/L Normal 5-15 [facility] Comment on above: Performed By: #### B MP #### [facility] ([facility]) [address] [place] [address] VIR Calcium [Mass/Vol] 8.9 mg/dL Normal 8.5-10.5 [facility] Comment on above: Performed By: #### B MP #### [facility] ([facility]) [address] [place] [address] VIR Chloride [Moles/Vol] 101 mmol/L Normal 98-109 [facility] Comment on above: Performed By: #### B MP #### [facility] ([facility]) [address] [place] [address] VIR CO2 [Moles/Vol] 29 mmol/L Normal 22-32 [facility] Comment on above: Performed By: #### B MP #### [facility] ([facility]) [address] [place] [address] VIR Creatinine [Mass/Vol] 0.66 mg/dL Normal 0.60-1.30 [facility] Comment on above: Result Comment: METH OD TRACEABLE TO IDMS STANDARD Performed By: #### B MP #### [facility] ([facility]) [address] [place] [address] VIR EGFR (CKD-EPI) NON-RACE DEPENDENT >^90 Normal >=60 [facility] Comment on above: Result Comment: Repo rted eGFR is based on the CKD-EPI 2020 equation that does not use a race coefficient. Performed By: #### B MP #### [facility] ([facility]) [address] [place] [address] VIR Glucose [Mass/Vol] 145 mg/dL High 65-99 [facility] Comment on above: Performed By: #### B MP #### [facility] ([facility]) [address] [place] [address] VIR Potassium [Moles/Vol] 4.1 mmol/L Normal 3.5-5.0 [facility] Comment on above: Performed By: #### B MP #### [facility] ([facility]) [address] [place] [address] VIR Sodium [Moles/Vol] 138 mmol/L Normal 134-146 [facility] Comment on above: Performed By: #### B MP #### [facility] ([facility]) [address] [place] [address] VIR Urea nitrogen [Mass/Vol] 22 mg/dL Normal 5-27 [facility] Comment on above: Performed By: #### B MP #### [facility] ([facility]) [address] [place] [address] VIR Basic Metabolic Panelon 06-0 Anion gap [Moles/Vol] 8 mmol/L 5 - 15 mmol/L [facility] Calcium [Mass/Vol] 8.9 mg/dL 8.5 - 10. 5 mg/dL [facility] Chloride [Moles/Vol] 101 mmol/L 98 - 109 mmol/L [facility] CO2 [Moles/Vol] 29 mmol/L 22 - 32 mmol/L [facility] Creatinine [Mass/Vol] 0.66 mg/dL 0.60 - 1.30 mg/dL [facility] Comment on above: METHOD TRACEABLE TO IDMS STANDARD EGFR Non-Race Dependent - PINF [facility] Comment on above: Reported eGFR is bas ed on the CKD-EPI 2020 equation that does not use a race coefficient. Glucose [Mass/Vol] 145 mg/dL High 65 - 99 mg/dL [facility] Interpretation and review of laboratory results Abnormal [facility] Potassium [Moles/Vol] 4.1 mmol/L 3.5 - 5.0 mmol/L [facility] Sodium [Moles/Vol] 138 mmol/L 134 - 146 mmol/L [facility] Urea nitrogen [Mass/Vol] 22 mg/dL 5 - 27 mg/dL [facility] CBC WITH AUTO DIFFERENTIALon 05-01-2025 BASOPHILS ABSOLUTE COUNT (10*3/UL) BY AUTOMATED COUNT 0.0 10*3/uL Normal 0.0-0.2 [facility] Comment on above: Performed By: #### C BCA #### [facility] ([facility]) [address] [place] [address] VIR BASOPHILS RELATIVE PERCENT BY AUTOMATED COUNT 0.3 % Normal [facility] Comment on above: Performed By: #### C BCA #### [facility] ([facility]) [address] [place] [address] VIR CELLAVISION DIFFERENTIAL TYPE AUTOMATED DIFFERENTIAL Normal [facility] Comment on above: Performed By: #### C BCA #### [facility] ([facility]) [address] [place] [address] VIR Eosinophils (Bld) [#/Vol] 0.0 10*3/uL Normal 0.0-0.4 [facility] Comment on above: Performed By: #### C BCA #### [facility] ([facility]) [address] [place] [address] VIR EOSINOPHILS RELATIVE PERCENT BY AUTOMATED COUNT 0.0 % Normal [facility] Comment on above: Performed By: #### C BCA #### [facility] ([facility]) [address] [place] [address] VIR Erythrocyte distribution width (RBC) [Ratio] 15.9 % High 11.5-15 [facility] Comment on above: Performed By: #### C BCA #### [facility] ([facility]) [address] [place] [address] VIR Hematocrit (Bld) [Volume fraction] 31.5 % Low 39-50 [facility] Comment on above: Performed By: #### C BCA #### [facility] ([facility]) [address] [place] [address] VIR Hemoglobin (Bld) [Mass/Vol] 10.7 g/dL Low 13-17 [facility] Comment on above: Performed By: #### C BCA #### [facility] ([facility]) [address] [place] [address] VIR LYMPHOCYTES ABSOLUTE COUNT (10*3/UL) BY AUTOMATED COUNT 1.2 10*3/uL Normal 1.0-3.5 [facility] Comment on above: Performed By: #### C BCA #### [facility] ([facility]) [address] [place] [address] VIR LYMPHOCYTES RELATIVE PERCENT BY AUTOMATED COUNT 15.3 % Normal [facility] Comment on above: Performed By: #### C BCA #### [facility] ([facility]) [address] [place] [address] VIR MCH (RBC) [Entitic mass] 28.2 pg Normal 27-34 [facility] Comment on above: Performed By: #### C BCA #### [facility] ([facility]) [address] [place] [address] VIR MCHC (RBC) [Mass/Vol] 34.0 g/dL Normal 32-36 [facility] Comment on above: Performed By: #### C BCA #### [facility] ([facility]) [address] [place] [address] VIR MCV (RBC) [Entitic vol] 83 fL Normal 80-100 [facility] Comment on above: Performed By: #### C BCA #### [facility] ([facility]) [address] [place] [address] VIR MONOCYTES ABSOLUTE COUNT (10*3/UL) BY AUTOMATED COUNT 0.6 10*3/uL Normal 0.0-0.9 [facility] Comment on above: Performed By: #### C BCA #### [facility] ([facility]) [address] [place] [address] VIR MONOCYTES RELATIVE PERCENT BY AUTOMATED COUNT 7.2 % Normal [facility] Comment on above: Performed By: #### C BCA #### [facility] ([facility]) [address] [place] [address] VIR NEUTROPHILS ABSOLUTE COUNT BY AUTOMATED COUNT 6.3 10*3/uL Normal 1.5-6.6 [facility] Comment on above: Performed By: #### C BCA #### [facility] ([facility]) [address] [place] [address] VIR NEUTROPHILS RELATIVE PERCENT BY AUTOMATED COUNT 77.2 % Normal [facility] Comment on above: Performed By: #### C BCA #### [facility] ([facility]) [address] [place] [address] VIR Platelet mean volume (Bld) [Entitic vol] 7.4 fL Normal 7-12 [facility] Comment on above: Performed By: #### C BCA #### [facility] ([facility]) [address] [place] [address] VIR Platelets (Bld) [#/Vol] 218 10*3/uL Normal 150-450 [facility] Comment on above: Performed By: #### C BCA #### [facility] ([facility]) [address] [place] [address] VIR RBC COUNT 3.80 X10E12/L Low 4.1-5.7 [facility] Comment on above: Performed By: #### C BCA #### [facility] ([facility]) [address] [place] [address] VIR WBC (Bld) [#/Vol] 8.1 10*3/uL Normal 4-11 [facility] Comment on above: Performed By: #### C BCA #### [facility] ([facility]) [address] [place] [address] VIR CBC auto differentialon -0 Basophils (Bld) [#/Vol] 0 10*3/uL 0.0 - 0.2 10*3/uL [facility] Basophils/100 WBC (Bld) 0.3 % [facility] Differential cell count method Nom (Bld) AUTOMATED DIFFERENTIAL [facility] Eosinophils (Bld) [#/Vol] 0 10*3/uL 0.0 - 0.4 10*3/uL [facility] Eosinophils/100 WBC (Bld) 0 % [facility] Erythrocyte distribution width (RBC) [Ratio] 15.9 % High 11.5 - 15 % [facility] Hematocrit (Bld) [Volume fraction] 31.5 % Low 39 - 50 % [facility] Hemoglobin (Bld) [Mass/Vol] 10.7 g/dL Low 13 - 17 g/dL [facility] Interpretation and review of laboratory results Abnormal [facility] Lymphocytes (Bld) [#/Vol] 1.2 10*3/uL 1.0 - 3.5 10*3/uL [facility] Lymphocytes/100 WBC (Bld) 15.3 % [facility] MCH (RBC) [Entitic mass] 28.2 pg 27 - 34 pg [facility] MCHC (RBC) [Mass/Vol] 34 g/dL 32 - 36 g/dL [facility] MCV (RBC) [Entitic vol] 83 fL 80 - 100 fL [facility] Monocytes (Bld) [#/Vol] 0.6 10*3/uL 0.0 - 0.9 10*3/uL [facility] Monocytes/100 WBC (Bld) 7.2 % [facility] Neutrophils (Bld) [#/Vol] 6.3 10*3/uL 1.5 - 6.6 10*3/uL [facility] Neutrophils/100 WBC (Bld) 77.2 % [facility] Platelet mean volume (Bld) [Entitic vol] 7.4 fL 7 - 12 fL [facility] Platelets (Bld) [#/Vol] 218 10*3/uL [facility] RBC (Bld) [#/Vol] 3.8 10*6/uL Low [facility] WBC LM Ql (Sput) 8.1 [facility] ABO Rh [place] 04-30-2025 ABO O [facility] Rh Nom (Bld) Positive [facility] ABO O [facility] Rh Nom (Bld) Positive [facility] BASIC METABOLIC PANELon Anion gap [Moles/Vol] 11 mmol/L Normal 5-15 [facility] Comment on above: Performed By: #### B MP #### [facility] ([facility]) [address] [place] [address] VIR Calcium [Mass/Vol] 9.3 mg/dL Normal 8.5-10.5 [facility] Comment on above: Performed By: #### B MP #### [facility] ([facility]) [address] [place] [address] VIR Chloride [Moles/Vol] 102 mmol/L Normal 98-109 [facility] Comment on above: Performed By: #### B MP #### [facility] ([facility]) [address] [place] [address] VIR CO2 [Moles/Vol] 25 mmol/L Normal 22-32 [facility] Comment on above: Performed By: #### B MP #### [facility] ([facility]) [address] [place] [address] VIR Creatinine [Mass/Vol] 0.62 mg/dL Normal 0.60-1.30 [facility] Comment on above: Result Comment: METH OD TRACEABLE TO IDMS STANDARD Performed By: #### B MP #### [facility] ([facility]) [address] [place] [address] VIR EGFR (CKD-EPI) NON-RACE DEPENDENT >^90 Normal >=60 [facility] Comment on above: Result Comment: Repo rted eGFR is based on the CKD-EPI 2020 equation that does not use a race coefficient. Performed By: #### B MP #### [facility] ([facility]) [address] [place] [address] VIR Glucose [Mass/Vol] 119 mg/dL High 65-99 [facility] Comment on above: Performed By: #### B MP #### [facility] ([facility]) [address] [place] [address] VIR Potassium [Moles/Vol] 4.2 mmol/L Normal 3.5-5.0 [facility] Comment on above: Performed By: #### B MP #### [facility] ([facility]) [address] [place] [address] VIR Sodium [Moles/Vol] 138 mmol/L Normal 134-146 [facility] Comment on above: Performed By: #### B MP #### [facility] ([facility]) [address] [place] [address] VIR Urea nitrogen [Mass/Vol] 16 mg/dL Normal 5-27 [facility] Comment on above: Performed By: #### B MP #### [facility] ([facility]) [address] [place] [address] VIR Basic Metabolic Panelon Anion gap [Moles/Vol] 11 mmol/L 5 - 15 mmol/L [facility] Calcium [Mass/Vol] 9.3 mg/dL 8.5 - 10. 5 mg/dL [facility] Chloride [Moles/Vol] 102 mmol/L 98 - 109 mmol/L [facility] CO2 [Moles/Vol] 25 mmol/L 22 - 32 mmol/L [facility] Creatinine [Mass/Vol] 0.62 mg/dL 0.60 - 1.30 mg/dL [facility] Comment on above: METHOD TRACEABLE TO IDNC STANDARD EGFR Non-Race Dependent - PINF [facility] Comment on above: Reported eGFR is bas ed on the CKD-EPI 2020 equation that does not use a race coefficient. Glucose [Mass/Vol] 119 mg/dL High 65 - 99 mg/dL [facility] Interpretation and review of laboratory results Abnormal [facility] Potassium [Moles/Vol] 4.2 mmol/L 3.5 - 5.0 mmol/L [facility] Sodium [Moles/Vol] 138 mmol/L 134 - 146 mmol/L [facility] Urea nitrogen [Mass/Vol] 16 mg/dL 5 - 27 mg/dL [facility] CBC WITH AUTO DIFFERENTIALon 04-30-2025 BASOPHILS ABSOLUTE COUNT (10*3/UL) BY AUTOMATED COUNT 0.0 10*3/uL Normal 0.0-0.2 [facility] Comment on above: Performed By: #### C BCA #### [facility] ([facility]) [address] [place] [address] VIR BASOPHILS RELATIVE PERCENT BY AUTOMATED COUNT 0.4 % Normal [facility] Comment on above: Performed By: #### C BCA #### [facility] ([facility]) [address] [place] [address] VIR CELLAVISION DIFFERENTIAL TYPE AUTOMATED DIFFERENTIAL Normal [facility] Comment on above: Performed By: #### C BCA #### [facility] ([facility]) [address] [place] [address] VIR Eosinophils (Bld) [#/Vol] 0.0 10*3/uL Normal 0.0-0.4 [facility] Comment on above: Performed By: #### C BCA #### [facility] ([facility]) [address] [place] [address] VIR EOSINOPHILS RELATIVE PERCENT BY AUTOMATED COUNT 0.4 % Normal [facility] Comment on above: Performed By: #### C BCA #### [facility] ([facility]) [address] [place] [address] VIR Erythrocyte distribution width (RBC) [Ratio] 16.0 % High 11.5-15 [facility] Comment on above: Performed By: #### C BCA #### [facility] ([facility]) [address] [place] [address] VIR Hematocrit (Bld) [Volume fraction] 35.1 % Low 39-50 [facility] Comment on above: Performed By: #### C BCA #### [facility] ([facility]) [address] [place] [address] VIR Hemoglobin (Bld) [Mass/Vol] 11.7 g/dL Low 13-17 [facility] Comment on above: Performed By: #### C BCA #### [facility] LABORATORY ([facility]) [address] [place] [address] VIR LYMPHOCYTES ABSOLUTE COUNT (10*3/UL) BY AUTOMATED COUNT 0.5 10*3/uL Low 1.0-3.5 [facility] Comment on above: Performed By: #### C BCA #### [facility] ([facility]) [address] [place] [address] VIR LYMPHOCYTES RELATIVE PERCENT BY AUTOMATED COUNT 6.8 % Normal [facility] Comment on above: Performed By: #### C BCA #### [facility] ([facility]) [address] [place] [address] VIR MCH (RBC) [Entitic mass] 27.7 pg Normal 27-34 [facility] Comment on above: Performed By: #### C BCA #### [facility] ([facility]) [address] [place] [address] VIR MCHC (RBC) [Mass/Vol] 33.5 g/dL Normal 32-36 [facility] Comment on above: Performed By: #### C BCA #### [facility] ([facility]) [address] [place] [address] VIR MCV (RBC) [Entitic vol] 83 fL Normal 80-100 [facility] Comment on above: Performed By: #### C BCA #### [facility] ([facility]) [address] [place] [address] VIR MONOCYTES ABSOLUTE COUNT (10*3/UL) BY AUTOMATED COUNT 0.2 10*3/uL Normal 0.0-0.9 [facility] Comment on above: Performed By: #### C BCA #### [facility] ([facility]) [address] [place] [address] VIR MONOCYTES RELATIVE PERCENT BY AUTOMATED COUNT 2.5 % Normal [facility] Comment on above: Performed By: #### C BCA #### [facility] ([facility]) [address] [place] [address] VIR NEUTROPHILS ABSOLUTE COUNT BY AUTOMATED COUNT 6.8 10*3/uL High 1.5-6.6 [facility] Comment on above: Performed By: #### C BCA #### [facility] ([facility]) [address] [place] [address] VIR NEUTROPHILS RELATIVE PERCENT BY AUTOMATED COUNT 89.9 % Normal [facility] Comment on above: Performed By: #### C BCA #### [facility] ([facility]) [address] [place] [address] VIR Platelet mean volume (Bld) [Entitic vol] 7.3 fL Normal 7-12 [facility] Comment on above: Performed By: #### C BCA #### [facility] ([facility]) [address] [place] [address] VIR Platelets (Bld) [#/Vol] 215 10*3/uL Normal 150-450 [facility] Comment on above: Performed By: #### C BCA #### [facility] ([facility]) [address] [place] [address] VIR RBC COUNT 4.24 X10E12/L Normal 4.1-5.7 [facility] Comment on above: Performed By: #### C BCA #### [facility] ([facility]) [address] [place] [address] VIR WBC (Bld) [#/Vol] 7.5 10*3/uL Normal 4-11 [facility] Comment on above: Performed By: #### C BCA #### [facility] ([facility]) [address] [place] [address] VIR CBC auto differentialon 06-0 -2024 Basophils (Bld) [#/Vol] 0 10*3/uL 0.0 - 0.2 10*3/uL [facility] Basophils/100 WBC (Bld) 0.4 % [facility] Differential cell count method Nom (Bld) AUTOMATED DIFFERENTIAL [facility] Eosinophils (Bld) [#/Vol] 0 10*3/uL 0.0 - 0.4 10*3/uL [facility] Eosinophils/100 WBC (Bld) 0.4 % [facility] Erythrocyte distribution width (RBC) [Ratio] 16 % High 11.5 - 15 % [facility] Hematocrit (Bld) [Volume fraction] 35.1 % Low 39 - 50 % [facility] Hemoglobin (Bld) [Mass/Vol] 11.7 g/dL Low 13 - 17 g/dL [facility] Interpretation and review of laboratory results Abnormal [facility] Lymphocytes (Bld) [#/Vol] 0.5 10*3/uL Low 1.0 - 3.5 10*3/uL [facility] Lymphocytes/100 WBC (Bld) 6.8 % [facility] MCH (RBC) [Entitic mass] 27.7 pg 27 - 34 pg [facility] MCHC (RBC) [Mass/Vol] 33.5 g/dL 32 - 36 g/dL [facility] MCV (RBC) [Entitic vol] 83 fL 80 - 100 fL [facility] Monocytes (Bld) [#/Vol] 0.2 10*3/uL 0.0 - 0.9 10*3/uL [facility] Monocytes/100 WBC (Bld) 2.5 % [facility] Neutrophils (Bld) [#/Vol] 6.8 10*3/uL High 1.5 - 6.6 10*3/uL [facility] Neutrophils/100 WBC (Bld) 89.9 % [facility] Platelet mean volume (Bld) [Entitic vol] 7.3 fL 7 - 12 fL [facility] Platelets (Bld) [#/Vol] 215 10*3/uL [facility] RBC (Bld) [#/Vol] 4.24 10*6/uL [facility] WBC LM Ql (Sput) 7.5 [facility] IONIZED MAGNESIUMon 04-30-20 25 Magnesium [Moles/Vol] 0.33 mmol/L Low 0.45-0.74 [facility] Comment on above: Performed By: #### I MAG #### [facility] ([facility]) [address] [place] [address] VIR Ionized magnesiumon 04-30-20 25 Interpretation and review of laboratory results Abnormal [facility] Magnesium Ionized ISE (Bld) [Moles/Vol] 0.33 mmol/L Low 0.45 - 0.74 mmol/L [facility] POCT ABG RAPID K GLU ICA HHo n 04-30-2025 BASE,EXCESS 3.0 mmol/L High 0.0-2.0 [facility] Comment on above: Performed By: #### A [id number] #### [facility] ([facility]) [address] [place] [address] VIR Body temperature 98.6 [degF] Normal >=37 [facility] Comment on above: Performed By: #### A [id number] #### [facility] ([facility]) [address] [place] [address] VIR Glucose [Mass/Vol] 121 mg/dL High 65-99 [facility] Comment on above: Performed By: #### A [id number] #### [facility] ([facility]) [address] [place] [address] VIR HCO3 (Bld) [Moles/Vol] 26.9 mmol/L High 22.0-26.0 [facility] Comment on above: Performed By: #### A [id number] #### [facility] ([facility]) [address] [place] [address] VIR Hematocrit (Bld) [Volume fraction] 35 % Low 39-49 [facility] Comment on above: Performed By: #### A [id number] #### [facility] ([facility]) [address] [place] [address] VIR Hemoglobin (Bld) [Mass/Vol] 11.4 g/dL Low 13.0-17.0 [facility] Comment on above: Performed By: #### A [id number] #### [facility] ([facility]) [address] [place] [address] VIR INSP. O2 CONC. 100.0 % Normal [facility] Comment on above: Performed By: #### A [id number] #### [facility] ([facility]) [address] [place] [address] VIR Oxygen saturation in Blood 100.3 % Normal >90.0 [facility] Comment on above: Performed By: #### A [id number] #### [facility] ([facility]) [address] [place] [address] VIR PCO2 ARTERIAL 38.1 mmHg Normal 35.0-45.0 [facility] Comment on above: Performed By: #### A [id number] #### [facility] ([facility]) [address] [place] [address] VIR PH ARTERIAL 7.457 High 7.350-7.450 [facility] Comment on above: Performed By: #### A [id number] #### [facility] ([facility]) [address] [place] [address] VIR PO2 ARTERIAL 254 mmHg High 80-100 [facility] Comment on above: Performed By: #### A [id number] #### [facility] ([facility]) [address] [place] [address] VIR POC ALLIE'S TEST Normal [facility] Comment on above: Performed By: #### A [id number] #### [facility] ([facility]) [address] [place] [address] VIR PORTABLE ICA 4.7 mg/dL Normal 4.5-5.3 [facility] Comment on above: Performed By: #### A [id number] #### [facility] ([facility]) [address] [place] [address] VIR Potassium [Moles/Vol] 4.3 mmol/L Normal 3.5-5.0 [facility] Comment on above: Performed By: #### A [id number] #### [facility] ([facility]) [address] [place] [address] VIR SAMPLE SITE A LINE Normal [facility] Comment on above: Performed By: #### A [id number] #### [facility] ([facility]) [address] [place] [address] VIR SAMPLE TYPE Arterial Normal [facility] Comment on above: Performed By: #### A [id number] #### [facility] ([facility]) [address] [place] [address] VIR POCT ABG Rapid K GLU ICA HHo n 04-30-2025 Arterial patency Wrist artery --pre arterial puncture [facility] Base excess Calc (Bld) [Moles/Vol] 3 mmol/L High 0.0 - 2.0 mmol/L [facility] Calcium.ionized (Bld) [Moles/Vol] 4.7 mg/dL 4.5 - 5.3 mg/dL [facility] CO2 (Bld) [Partial pressure] 38.1 mm[Hg] [facility] Glucose [Mass/Vol] 121 mg/dL High 65 - 99 mg/dL [facility] HCO3 (Bld) [Moles/Vol] 26.9 mmol/L High 22.0 - 26.0 mmol/L [facility] Hematocrit (Bld) [Volume fraction] 35 % Low 39 - 49 % [facility] Hemoglobin (Bld) [Mass/Vol] 11.4 g/dL Low 13.0 - 17.0 g/dL [facility] Interpretation and review of laboratory results Abnormal [facility] Oxygen (Bld) [Partial pressure] 254 mm[Hg] High [facility] Oxygen/Inspired gas setting [Volume Fraction] Ventilator 100.0 % [facility] pH (Bld) 7.457 [pH] High 7.350 - 7.450 [facility] Potassium [Moles/Vol] 4.3 mmol/L 3.5 - 5.0 mmol/L [facility] Specimen site Narrative A LINE [facility] Specimen type Nom (Spec) Arterial [facility] REPEATED ABORHon 04-30-2025 ABO_INTEP O Normal [facility] Comment on above: Performed By: #### A TESFAYE #### [facility] ([facility]) [address] [place] [address] VIR RH_INTEP Positive Normal [facility] Comment on above: Performed By: #### A TESFAYE #### [facility] ([facility]) [address] [place] [address] VIR RFA Guidance for vascular ac cess of Vesselon 04-30-2025 Please refer to the vascular OP note for a dictation on this exam. [facility] TYPE AND SCREENon 04-30-2025 ABO_INTEP O Normal [facility] Comment on above: Performed By: #### T SC #### [facility] ([facility]) [address] [facility] [address] VIR Performed By: #### A TESFAYE #### [facility] ([facility]) [address] [facility] [place] [address] VIR RH_INTEP Positive Normal [facility] Comment on above: Performed By: #### T SC #### [facility] ([facility]) [address] [facility] [address] [address] VIR Performed By: #### A TESFAYE #### [facility] ([facility]) [address] [place] [address] VIR Type and screen (Pre-op)on 0 04-30-2025 ABO O [facility] Rh Nom (Bld) Positive [facility] 30on 04-06-2025 30 Daily Case Managemen t Update Barriers to Discharge: Authorization required to return to [facility]. SW submitting prior authorization request. Diet: Dietary Orders (From admission, onward) Start Ordered 04/05/25 1607 Regular Diet Diet effective now Question: Room Service? Answer: Yes 04/05/25 1606 Physician Expected Discharge Date: 04/06/2025 Discharge Delays: Waiting on discharge facility authorization [108] PT Six Click Score: OT Six Click Score: PT Recommendations: OT Recommendations: New Consults: Consult Orders (From admission, onward) Start Ordered 04/05/25 1056 Inpatient consult to Cardiology Once Specialty: Cardiology Provider: (Not yet assigned) Question Answer Comment [facility] CARDIOLOGY TEAM Reason for Consult? AFIB CAD PCI Level of Consultation Consultation and Management 04/05/25 1055 Normal [facility] 30 The patient is Moderately Stable - Low risk of patient condition declining or worsening The patient's goals for the shift include comfort/rest The clinical goals for the shift include vital signs stable Problem: Pain - Adult Goal: Verbalizes/displays adequate comfort level or baseline comfort level Outcome: Progressing Problem: Safety - Adult Goal: Free from fall injury Outcome: Progressing Problem: Chronic Conditions and Co-morbidities Goal: Patient's chronic conditions and co-morbidity symptoms are monitored and maintained or improved Outcome: Progressing Normal [facility] DSon 04-06-2025 DS Admission Admitted 04/05/2025 for Abnormal stress test Discharge Diagnosis Abnormal stress test Cad Htn Hld PAF Discharge Disposition Home or Self Care () Discharge Medications Your medication list START taking these medications Instructions Last Dose Given Next Dose Due apixaban 2.5 mg tablet Commonly known as: Eliquis Take 1 tablet (2.5 mg) by mouth two times daily for 198 doses. aspirin 81 mg EC tablet Start taking on: April 07, 2025 Take 1 tablet (81 mg) by mouth in the morning for 99 doses. atorvastatin 40 mg tablet Commonly known as: Lipitor Take 1 tablet (40 mg) by mouth at bedtime for 99 doses. clopidogrel 75 mg tablet Commonly known as: Plavix Start taking on: April 07, 2025 Take 1 tablet (75 mg) by mouth in the morning for 98 doses. metoprolol succinate XL 50 mg 24 hr tablet Commonly known as: Toprol-XL Start taking on: April 07, 2025 Take 1 tablet (50 mg) by mouth in the morning for 98 doses. Do not crush or chew. Do not start before April 07, 2025. CONTINUE taking these medications Instructions Last Dose Given Next Dose Due albuterol 2.5 mg /3 mL (0.083 %) nebulizer solution budesonide-formoteroL 160-4.5 mcg/actuation inhaler Commonly known as: Symbicort guaiFENesin 600 mg 12 hr tablet Commonly known as: Mucinex HYDROcodone-acetaminop hen 5-325 mg tablet Commonly known as: Marion Os-Juan 500 + D3 500 mg-5 mcg (200 unit) tablet Generic drug: calcium carbonate-vitamin D3 pantoprazole 40 mg EC tablet Commonly known as: ProtoNix Remeron 15 mg tablet Generic drug: mirtazapine roflumilast 500 mcg tablet Commonly known as: Daliresp Where to Get Your Medications These medications were sent to [facility] - [place], [place] - [address], [facility] [address] apixaban 2.5 mg tablet aspirin 81 mg EC tablet atorvastatin 40 mg tablet clopidogrel 75 mg tablet metoprolol succinate XL 50 mg 24 hr tablet Activity Normal activity as tolerated, Follow fallprecatiouns Diet Allergies Patient has no known allergies. Hospital Course htn Coronary artery disease status post PCI to proximal and mid LAD Normal LVEF 55% based on transthoracic echocardiogram in [facility] on 03/29/2025 Paroxysmal atrial fibrillation, CHADSVASC of 2 given age and CAD. Thoracic aortic aneurysm with plan for endovascular repair as per vascular team. 5.HDL Eliquis started serial labs diet pain control Total time spent 35 minutes Pertinent Physical Exam At Time of Discharge Physical Exam Vitals reviewed. Constitutional: Appearance: Normal appearance. HENT: Head: Normocephalic and atraumatic. Nose: Nose normal. Mouth/Throat: Mouth: Mucous membranes are moist. Pharynx: Oropharynx is clear. Eyes: Extraocular Movements: Extraocular movements intact. Conjunctiva/sclera: Conjunctivae normal. Pupils: Pupils are equal, round, and reactive to light. Cardiovascular: Rate and Rhythm: Normal rate and regular rhythm. Pulmonary: Effort: Pulmonary effort is normal. Breath sounds: Normal breath sounds. Abdominal: General: Abdomen is flat. Bowel sounds are normal. Palpations: Abdomen is soft. Musculoskeletal: General: Normal range of motion. Cervical back: Normal range of motion and neck supple. Skin: General: Skin is warm and dry. Capillary Refill: Capillary refill takes 2 to 3 seconds. Neurological: Mental Status: He is alert. Mental status is at baseline. Psychiatric: Behavior: Behavior normal. Lab Results Labs Reviewed COMPREHENSIVE METABOLIC PANEL - Abnormal Result Value Sodium 141 Potassium 3.7 Chloride 106 CO2 27 Anion Gap 12 BUN 18 Creatinine 0.72 BUN/Creatinine Ratio 25.0 Glucose 107 (*) Calcium 8.7 AST 15 ALT (SGPT) 9 Alkaline Phosphatase 63 Total Protein 6.3 Albumin 3.4 (*) Total Bilirubin 0.3 eGFR 100.8 MAGNESIUM - Abnormal Magnesium 1.7 (*) CBC WITH AUTO DIFFERENTIAL - Abnormal Auto WBC 9.86 RBC 4.03 (*) Hemoglobin 11.4 (*) Hematocrit 36.2 (*) MCV 89.8 MCH 28.3 MCHC 31.5 (*) RDW 15.0 Neutrophils % 76.7 (*) Lymphocytes % 14.8 (*) Monocytes % 5.9 Eosinophils % 0.6 Basophils % 0.6 Neutrophils Absolute 7.56 Lymphocytes Absolute 1.46 Monocytes Absolute 0.58 Eosinophils Absolute 0.06 Basophils Absolute 0.06 Platelets 359 nRBC % 0.0 Immature Granulocytes % 1.4 (*) Immature Granulocytes Absolute 0.14 CBC AND DIFFERENTIAL Narrative: The following orders were created for panel order CBC and differential. Procedure Abnormality Status --------- ------ CBC auto differential[[id number]] Abnormal Final result Please view results for these tests on the individual orders. LIPID PANEL Triglycerides 61 Cholesterol 136 LDL Calculated 83 HDL 41 Non HDL Cholesterol 95 Total VLDL-C 12 Cholesterol/HDL Ratio 3.3 HEMOGLOBIN A1C Nutrition Scr (more content not included)... Normal [facility] 30on 04-05-2025 30 The patient is Moderately Stable - Low risk of patient condition declining or worsening The patient's goals for the shift include comfort/rest The clinical goals for the shift include vital signs stable Problem: Safety - Adult Goal: Free from fall injury Outcome: Progressing Problem: Pain - Adult Goal: Verbalizes/displays adequate comfort level or baseline comfort level Outcome: Progressing Normal [facility] 30 The patient is Moderately Stable - Low risk of patient condition declining or worsening The patient's goals for the shift include The clinical goals for the shift include Problem: Pain - Adult Goal: Verbalizes/displays adequate comfort level or baseline comfort level Outcome: Progressing Problem: Safety - Adult Goal: Free from fall injury Outcome: Progressing Normal [facility] CBC WITH AUTO DIFFERENTIALon 04-05-2025 Basophils (Bld) [#/Vol] 0.06 10*3/uL Normal 0.00-0.20 [facility] Comment on above: Performed By: #### L [id number] ####[facility] ([facility])[address] [place] [address] Basophils/100 WBC (Bld) 0.6 % Normal 0.0-1.0 [facility] Comment on above: Performed By: #### L [id number] ####[facility] ([facility])[address] [place] [address] Eosinophils (Bld) [#/Vol] 0.06 10*3/uL Normal 0.00-0.50 [facility] Comment on above: Performed By: #### L [id number] ####[facility] ([facility])[address] [place] [address] Eosinophils/100 WBC (Bld) 0.6 % Normal 0.0-6.0 [facility] Comment on above: Performed By: #### L [id number] ####[facility] ([facility])[address] [place] [address] Erythrocyte distribution width (RBC) [Ratio] 15.0 % Normal 11.5-15.0 [facility] Comment on above: Performed By: #### L [id number] ####[facility] ([facility])[address] [place] [address] ERYTHROCYTE MEAN CORPUSCULAR HEMOGLOBIN CONCENTRATION (G/DL) BY AUTOMATED 31.5 g/dL Low 32.0-35.0 [facility] Comment on above: Performed By: #### L [id number] ####[facility] ([facility])[address] [place] [address] Hematocrit (Bld) [Volume fraction] 36.2 % Low 39.0-50.0 [facility] Comment on above: Performed By: #### L [id number] ####[facility] ([facility])[address] [place] [address] Hemoglobin (Bld) [Mass/Vol] 11.4 g/dL Low 13.0-17.0 [facility] Comment on above: Performed By: #### L [id number] ####[facility] ([facility])[address] [place] [address] Immature granulocytes (Bld) [#/Vol] 0.14 10*3/uL Normal 0.00-0.20 [facility] Comment on above: Performed By: #### L [id number] ####[facility] ([facility])[address] [place] [address] Immature granulocytes/100 WBC (Bld) 1.4 % High 0.0-1.0 [facility] Comment on above: Performed By: #### L [id number] ####[facility] ([facility])[address] [place] [address] Lymphocytes (Bld) [#/Vol] 1.46 10*3/uL Normal 1.20-4.00 [facility] Comment on above: Performed By: #### L [id number] ####[facility] ([facility])[address] [place] [address] Lymphocytes/100 WBC (Bld) 14.8 % Low 20.0-45.0 [facility] Comment on above: Performed By: #### L [id number] ####[facility] ([facility])[address] [place] [address] MCH (RBC) [Entitic mass] 28.3 pg Normal 27.0-33.0 [facility] Comment on above: Performed By: #### L [id number] ####[facility] ([facility])[address] [place] [address] MCV (RBC) [Entitic vol] 89.8 fL Normal 82.0-98.0 [facility] Comment on above: Performed By: #### L [id number] ####[facility] ([facility])[address] [place] [address] Monocytes (Bld) [#/Vol] 0.58 10*3/uL Normal 0.10-1.00 [facility] Comment on above: Performed By: #### L [id number] ####[facility] ([facility])[address] [place] [address] Monocytes/100 WBC (Bld) 5.9 % Normal 5.0-12.0 [facility] Comment on above: Performed By: #### L [id number] ####[facility] ([facility])[address] [place] [address] Neutrophils (Bld) [#/Vol] 7.56 10*3/uL Normal 1.60-7.60 [facility] Comment on above: Performed By: #### L [id number] ####[facility] ([facility])[address] [place] [address] Neutrophils/100 WBC (Bld) 76.7 % High 40.0-72.0 [facility] Comment on above: Performed By: #### L [id number] ####[facility] ([facility])[address] [place] [address] NRBC (PER 100 WBCS) BY AUTOMATED COUNT 0.0 % Normal 0 [facility] Comment on above: Performed By: #### L [id number] ####[facility] ([facility])[address] [place] [address] PLATELETS (10*3/UL) IN BLOOD AUTOMATED COUNT 359 10*3/uL Normal 150-400 [facility] Comment on above: Performed By: #### L [id number] ####[facility] ([facility])[address] [place] [address] RBC (Bld) [#/Vol] 4.03 10*6/uL Low 4.20-5.70 [facility] Comment on above: Performed By: #### L [id number] ####[facility] ([facility])[address] [place] [address] WBC (Bld) [#/Vol] 9.86 10*3/uL Normal 4.00-10.60 [facility] Comment on above: Performed By: #### L [id number] ####[facility] HOSPITAL)[address] [place] [address] COMPREHENSIVE METABOLIC PANE Candido 04-05-2025 Albumin [Mass/Vol] 3.4 g/dL Low 3.5-5.7 [facility] Comment on above: Performed By: #### L [id number] #### [facility] ([facility]) [address] [place] [address] ALP [Catalytic activity/Vol] 63 U/L Normal 34-104 [facility] Comment on above: Performed By: #### L [id number] #### [facility] ([facility]) [address] [place] [address] ALT [Catalytic activity/Vol] 9 U/L Normal 7-52 [facility] Comment on above: Performed By: #### L [id number] #### [facility] ([facility]) [address] [place] [address] Anion gap [Moles/Vol] 12 mmol/L Normal 7-20 [facility] Comment on above: Performed By: #### L [id number] #### [facility] ([facility]) [address] [place] [address] AST [Catalytic activity/Vol] 15 U/L Normal 13-39 [facility] Comment on above: Performed By: #### L [id number] #### [facility] ([facility]) [address] [place] [address] Bilirubin [Mass/Vol] 0.3 mg/dL Normal 0.3-1.0 [facility] Comment on above: Performed By: #### L [id number] #### [facility] ([facility]) [address] [place] [address] Calcium [Mass/Vol] 8.7 mg/dL Normal 8.6-10.3 [facility] Comment on above: Performed By: #### L [id number] #### [facility] ([facility]) [address] [place] [address] Chloride [Moles/Vol] 106 mmol/L Normal 98-107 [facility] Comment on above: Performed By: #### L [id number] #### [facility] ([facility]) [address] [place] [address] CO2 [Moles/Vol] 27 mmol/L Normal 21-31 [facility] Comment on above: Performed By: #### L [id number] #### [facility] ([facility]) [address] [place] [address] Creatinine [Mass/Vol] 0.72 mg/dL Normal 0.70-1.30 [facility] Comment on above: Performed By: #### L [id number] #### [facility] ([facility]) [address] [place] [address] GLOMERULAR FILTRATION RATE ML/MIN/1.73 SQ M.PREDICTED 100.8 mL/min/1.73m*2 Normal >60.0 [facility] Comment on above: Result Comment: The [facility]???s estimated glomerular filtration rate (eGFR) will no longer include consideration of race in its calculation. The National Kidney Foundation???s eGFR Task Force developed new recommendations for [...] disproportionately affect any one group of individuals. Performed By: #### L AB17 #### [facility] ([facility]) [address] [place] [address] Glucose [Mass/Vol] 107 mg/dL High 70-100 [facility] Comment on above: Performed By: #### L [id number] #### [facility] ([facility]) [address] [place] [address] Potassium [Moles/Vol] 3.7 mmol/L Normal 3.5-5.1 [facility] Comment on above: Performed By: #### L [id number] #### [facility] ([facility]) [address] [place] [address] Protein [Mass/Vol] 6.3 g/dL Normal 6.0-8.3 [facility] Comment on above: Performed By: #### L [id number] #### [facility] ([facility]) [address] [place] [address] Sodium [Moles/Vol] 141 mmol/L Normal 136-145 [facility] Comment on above: Performed By: #### L [id number] #### [facility] ([facility]) [address] [place] [address] Urea nitrogen [Mass/Vol] 18 mg/dL Normal 7-25 [facility] Comment on above: Performed By: #### L [id number] #### [facility] ([facility]) [address] [facility] [place] [address] UREA NITROGEN/CREATININE (MASS RATIO) IN SER/PLAS 25.0 Normal [facility] Comment on above: Performed By: #### L [id number] #### [facility] ([facility]) [address] [place] [place] [address] HEMOGLOBIN A1Con 04-05-2025 Glucose [Mass/Vol] 97 mg/dL Normal [facility] Comment on above: Performed By: #### L AB90 ####[facility] ([facility])[address] [facility] [place] [address] HbA1c (Bld) [Mass fraction] 5.0 % Normal 4.0-6.0 [facility] Comment on above: Performed By: #### L [id number] ####[facility] ([facility])[address] [place] [address] HPon 04-05-2025 HP H&P reviewed. The patient was examined and there are no changes to the H&P. Normal [facility] LIPID PANELon 04-05-2025 CHOL/HDL 3.3 mg/dL Normal [facility] Comment on above: Performed By: #### L [id number] #### [facility] ([facility]) [address] [place] [address] Cholesterol [Mass/Vol] 136 mg/dL Normal 120-200 [facility] Comment on above: Performed By: #### L [id number] #### [facility] ([facility]) [address] [facility] [place] [address] Magnesium [Mass/Vol] 61 mg/dL Normal <150 [facility] Comment on above: Result Comment: TRIG LYCERIDE REFERENCE RANGE: 20 YEARS AND OLDER CARDIOVASCULAR RISK LESS THAN 150 mg/dL LOW RISK 150 TO 199 mg/dL BORDERLINE RISK 200 mg/dL AND GREATER HIGH RISK Performed By: #### L [id number] #### [facility] ([facility]) [address] [place] [address] Magnesium [Mass/Vol] 83 mg/dL Normal 0-160 [facility] Comment on above: Performed By: #### L [id number] #### [facility] ([facility]AKER) [address] [place] [address] Magnesium [Mass/Vol] 41 mg/dL Normal 23-92 [facility] Comment on above: Performed By: #### L [id number] #### [facility] ([facility]AKER) [address] [place] [address] NON HDL CHOL. (LDL+VLDL) 95 Normal [facility] Comment on above: Performed By: #### L [id number] #### [facility] ([facility]AKER) [address] [place] [address] TOTAL VLDL-C 12 mg/dL Normal 0-40 [facility] Comment on above: Performed By: #### L [id number] #### [facility] ([facility]ER) [address] [place] [address] MAGNESIUMon 04-05-2025 Magnesium [Mass/Vol] 1.7 mg/dL Low 1.9-2.7 [facility] Comment on above: Performed By: #### L [id number] ####[facility] (BEAKER)[address] [place] [address] ALL CBC WITH AUTO DIFFon BASOPHILS ABSOLUTE AUTO 0 [facility] Basophils/100 WBC (Bld) 0.2 % 0.2 - 2.0 % [facility] Eosinophils/100 WBC (Bld) 0.2 % Low 0.9 - 7.0 % [facility] Erythrocyte distribution width (RBC) [Ratio] 14.8 % 11.0 - 15.0 % [facility] Hematocrit (Bld) [Volume fraction] 35.8 % Low 42.0 - 54.0 % [facility] Hemoglobin (Bld) [Mass/Vol] 11.4 g/dL Low 14.0 - 18.0 g/dL [facility] IMMATURE GRANULOCYTES ABS AUTO 0.08 High [facility] Immature granulocytes/100 WBC (Bld) 0.9 % High 0.0 - 0.5 % [facility] Interpretation and review of laboratory results Abnormal [facility] LYMPHOCYTES ABSOLUTE AUTO 2 [facility] Lymphocytes/100 WBC (Bld) 23 % 20.5 - 60.0 % [facility] MCH (RBC) [Entitic mass] 28.3 pg 25.9 - 34.0 pg [facility] MCHC (RBC) [Mass/Vol] 31.8 g/dL 29.9 - 35.2 g/dL [facility] MCV (RBC) [Entitic vol] 88.8 fL 80.0 - 94.0 fL [facility] MONOCYTES ABSOLUTE AUTO 0.6 [facility] Monocytes/100 WBC (Bld) 7.3 % 1.7 - 12.0 % [facility] NEUTROPHILS ABSOLUTE AUTO 6 [facility] Neutrophils/100 WBC (Bld) 68.4 % 43.0 - 75.0 % [facility] Platelet mean volume (Bld) [Entitic vol] 8.7 fL Low 9.5 - 13.5 fL [facility] TBH EO # 0 [facility] PLT 370 [facility] RBC 4.03 Low [facility] WBC 8.8 [facility] 36on 04-02-2025 36 Regarding stress justin t result from 03/29/2025: MD Sandra Pozo MA Stress test was abnormal. I also discussed with Dr. Piper. We decided to proceed with cardiac catheterization. Please schedule him for left heart catheterization and coronary angiography for this 04/05/2025 at 9 am. I added an addendum to the last visit. he might need CBC and BMP prior to that. Mora in the medical laboratory specialist was able to get ahold of the [facility]. She will fax instructions and orders to them. Normal [facility] Orders Onlyon 04-02-2025 Orders Only [id number] Jinny,Mateo Payan 1960 M Date Provider Department Center 04/02/2025 [facility] Family History Problem Relation Age of Onset Emphysema Father Accidental Sister Family Status - Relation Status Age at Mother Father Sister Normal [facility] CA ECHO DOPPLER COMPLETEon 0 03-29-2025 [facility] [address] [place] [address] Cardiology Report Signed Patient: JINNYMATEO Payan MR#: [id number] : 1960 Acct:[id number] Age/Sex: 64 / M ADM Date: 03/29/25 Loc: CARD Attending Dr: RENE FAJARDO Ordering Physician: RENE FAJARDO Date of Service: 03/29/25 Procedure(s): CA echo doppler complete Accession Number(s): [id number] cc: Kathie Sánchez NP; RENE FAJARDO Patient Name: MATEO STEARNS MR#: [id number] : 1960 Exam Date: 03/29/2025 Ordering Doctor: DR RENE FAJARDO M.D. ECHOCARDIOGRAM REPORT PROCEDURE: CA ECHO DOPPLER [...] Area (VTI): 3.36 cm2, 3.36 cm2 Deceleration Webster: Pressure Half-Time: Peak Velocity(Antegrade Flow): 0.82 m/s Peak Gradient(Antegrade Flow): 2.71 mm[Hg] Mean Velocity(Antegrade Flow): 0.56 m/s Mean Gradient(Antegrade Flow): 1.43 mm[Hg] Velocity Time Integral: 16.56 cm Tricuspid Valve Peak Velocity (Regurgitant Flow): 2.86 m/s Peak Velocity: Pulmonic Valve Mean Gradient: 1.14 mm[Hg] Mean Velocity: 0.50 m/s Peak Velocity: 0.77 m/s, 0.73 m/s Peak Gradient: 2.14 mm[Hg], 2.36 (more content not included)... [facility] Radiology, Radiologist, MD - 03/29/[address] [address] Cardiology Report Signed Patient: MATEO STEARNS MR#: [id number] : 1960 Acct:[id number] Age/Sex: 64 / M ADM Date: 03/29/25 Loc: CARD Attending Dr: RENE FAJARDO Ordering Physician: RENE FAJARDO Date of Service: 03/29/25 Procedure(s): CA echo doppler complete Accession Number(s): [id number] cc: Kathie Sánchez NP; RENE FAJARDO Patient Name: MATEO STEARNS MR#: [id number] : 1960 Exam Date: 03/29/2025 Ordering Doctor: DR RENE FAJARDO M.D. ECHOCARDIOGRAM REPORT PROCEDURE: CA ECHO DOPPLER [...] Area (VTI): 3.36 cm2, 3.36 cm2 Deceleration Webster: Pressure Half-Time: Peak Velocity(Antegrade Flow): 0.82 m/s [...] MD on 03/29/2025 at 17:34 Approved by: Eevlin Renteria MD on 03/29/2025 at 17:41 Dictated By: Evelin Renteria M.D. Signed By: 03/29/25 174 DD/ 40 TD/TT: Bead Filler: [facility] Radiology Study observation (narrative) [facility] CA ECHO DOPPLER COMPLETEOrde red By: Radiologist Radiology on 03-29-2025 [facility] Work Phone: NM AGATHA PERF SPECT REST STRon 03-29-2025 [place] [address] Nuclear Medicine Report Signed Patient: MATEO STEARNS MR#: [id number] : 1960 Acct:[id number] Age/Sex: 64 / M ADM Date: 03/29/25 Loc: CARD Attending Dr: RENE FAJARDO Ordering Physician: RENE FAJARDO Date of Service: 03/29/25 Procedure(s): NM agatha perf SPECT rest str Accession Number(s): [id number] cc: Kathie Sánchez SKIRT CLIPPER; RENE FAJARDO Patient Name: MATEO STEARNS MR#: [id number] : 1960 Exam Date: 03/29/2025 Ordering Doctor: DR RENE FAJARDO M.D. RADIOLOGY REPORT PROCEDURE: NM AGATHA PERF SPECT REST STR COMPARISON: None. INDICATIONS: [...] the study was pending per attending physician [facility]. For more details, please see separate cardiac [...] Signed By: 03/29/25 1343 DD/ 1342 TD/TT: Bead Filler: [facility] Radiology, Radiologist, - 03/29/2025 [place] [address] Nuclear Medicine Report Signed Patient: MATEO STEARNS MR#: [id number] : 1960 Acct:[id number] Age/Sex: 64 / M ADM Date: 03/29/25 Loc: CARD Attending Dr: RENE FAJARDO Ordering Physician: RENE FAJARDO Date of Service: 03/29/25 Procedure(s): NM agatha perf SPECT rest str Accession Number(s): [id number] cc: Kathie Sánchez SKIRT CLIPPER; RENE FAJARDO Patient Name: MATEO STEARNS MR#: [id number] : 1960 Exam Date: 03/29/2025 Ordering Doctor: DR RENE FAJARDO M.D. RADIOLOGY REPORT PROCEDURE: NM AGATHA PERF SPECT REST STR COMPARISON: None. INDICATIONS: [...] the study was pending per attending physician [facility]. For more details, please see separate cardiac [...] Signed By: 03/29/25 1343 DD/ 1342 TD/TT: Bead Filler: [facility] Radiology Study observation (narrative) [facility] NM AGATHA PERF SPECT REST STROr dered By: Radiologist Radiology on 03-29-2025 [facility] Work Phone: HPon 03-15-2025 [facility] Cardiology [facility] Subjective Mateo Stearns is a 64 y.o. year old male patient being seen for surgery clearence for AAA. Patient denies chest pain, palpitations or leg swelling. C/O SOB. Patient states he has had previous A-Fib. Patient Active Problem List Diagnosis Abdominal aortic aneurysm (AAA) without rupture Age-related nuclear cataract of both eyes Alcoholism ([facility]/HCC) Anxiety disorder, unspecified Arthritis Atherosclerosis of aorta Carpal tunnel syndrome of right wrist Centrilobular emphysema (CMS/HCC) Chronic GERD Chronic respiratory failure with hypoxia (CMS/HCC) COPD (chronic obstructive pulmonary disease) (CMS/HCC) DDD (degenerative disc disease), cervical Gout, unspecified Imbalance Lobular atelectasis Lumbar radiculopathy Lung mass Marijuana smoker Mixed hyperlipidemia Neuropathy Other chronic pain Other thrombophilia Paroxysmal atrial fibrillation (CMS/HCC) Penetrating atherosclerotic 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 Prostate cancer (CMS/HCC) Encounter for subsequent annual wellness visit (AWV) in Medicare patient Scrotal cyst Sebaceous cyst Thoracic aortic aneurysm, without rupture, unspecified Tobacco abuse Cellulitis of left lower limb Difficulty walking Nausea Family History Problem Relation Name Age of Onset Emphysema Father Accidental Sister Social History Tobacco Use Smoking status: Former Types: Cigarettes Smokeless tobacco: Never Substance Use Topics Alcohol use: Not Currently Comment: former Drug use: Never HPI Mateo is seen as a new patient for preoperative evaluation for vascular surgery. He is a 64-year-old man with penetrating thoracic aortic ulcer. He is planned for endovascular repair by Dr. Sadie Piper at [facility] vascular. Prior medical history is significant for COPD, emphysema [Was admitted with pneumonia to the [facility] in December 2024] and atrial fibrillation. In addition he has a recent hip fracture being treated conservatively. he is currently maintained on oxygen therapy all the time for his COPD. He has constant shortness of breath with exertion. No significant lower extremity edema. He denies chest pain. Atrial fibrillation appears to be a remote history 8 years ago without any clear clinical evidence of recurrence. He is currently maintained on aspirin 81 mg daily and diltiazem. He has extensive ecchymosis and bruising in the upper extremities. Review of Systems Respiratory: Positive for shortness of breath. Objective Visit Vitals BP 115/75 (BP Location: Right arm, Patient Position: Sitting) Pulse 99 Ht 1.702 m (5' 7 ) Wt 57.6 kg (127 lb) SpO2 93% BMI 19.89 kg/m??? Smoking Status Former BSA 1.65 m??? Physical Exam Constitutional: Appearance: He is well-developed. He is not ill-appearing. Comments: using oxygen by nasal prongs HENT: Head: Normocephalic and atraumatic. Nose: Nose normal. Eyes: General: No scleral icterus. Pupils: Pupils are equal, round, and reactive to light. Neck: Thyroid: No thyromegaly. Vascular: No JVD. Cardiovascular: Rate and Rhythm: Normal rate and regular rhythm. Pulses: Radial pulses are 2+ on the right side and 2+ on the left side. Heart sounds: Normal heart sounds. No murmur heard. No friction rub. No gallop. Pulmonary: Effort: Pulmonary effort is normal. No respiratory distress. Breath sounds: Normal breath sounds. No wheezing or rales. Chest: Chest wall: No tenderness. Abdominal: General: Bowel sounds are normal. There is no distension. Palpations: Abdomen is soft. Tenderness: There is no abdominal tenderness. Musculoskeletal: General: No swelling. Cervical back: Neck supple. Comments: In wheelchair Skin: General: Skin is warm and dry. Findings: Ecchymosis (upper extremities) present. Neurological: General: No focal deficit present. Mental Status: He is alert and oriented to person, place, and time. Psychiatric: Mood and Affect: Mood normal. Behavior: Behavior is cooperative. Judgment: Judgment normal. Allergies No Known Allergies Medications Current Outpatient Medications: albuterol 2.5 mg /3 mL (0.083 %) nebulizer solution, 2.5 mg every 4 (four) hours if needed., Disp: , Rfl: albuterol 90 mcg/actuation inhaler, Inhale 2 puffs every 4 (four) hours if needed., Disp: , Rfl: aspirin 81 mg EC tablet, Take 81 mg by mouth in the morning., Disp: , Rfl: budesonide-formoteroL (Symbicort) 160-4.5 mcg/actuation inhaler, Inhale 2 puffs twice a day., Disp: , Rfl: calcium carbonate-vitamin D3 (Os-Juan 500 + D3) 500 mg-5 mcg (200 unit) tablet, Take 1 tablet by mouth twice a day., Disp: , Rfl: cefdinir (Omnicef) 300 mg capsule, Take 300 mg by mouth two times daily., Disp: , Rfl: cycloSPORINE (Restasis) 0.05 % ophthalmic emulsion, Administer 1 drop into affected eye(s) every 12 (twelve) hours., Disp: , Rfl: dilT (more content not included)... Normal [facility] Office Visiton 03-15-2025 Follow-up visit [id number] Mateo Stearns 1960 M Date Provider Department Center 03/15/2025 RENE [facility] CARD [facility] Family History Problem Relation Age of Onset Emphysema Father Accidental Sister Family Status - Relation Status Age at Mother Father Sister Level of Service:41616 MS OFFICE/OUTPATIENT NEW MODERATE MDM 45 MINUTES Normal [facility] URINE CULTURE, ROUTINEon Bacteria identified Cx Nom (U) Urine Culture, Routine [facility] Bacteria identified Cx Nom (U) Mixed urogenital juanis [facility] Bacteria identified Cx Nom (U) Less than 10,000 colonies/mL [facility] Bacteria identified Cx Nom (U) Performed at: [facility] Bacteria identified Cx Nom (U) [address] [place], [place] [id number] [facility] Bacteria identified Cx Nom (U) Coal Chemist: Iván Damon PhD, Phone: [phone] [facility] EPITHELIAL CELLSon Epithelial cells LM Ql (Urine sed) Epithelial Cells None seen [facility] No Panel Informationon 02-25 [facility] RESULT 1on 02-25-2025 RESULT 1 Result 1 Many gram positive rods. [facility] RESULT 2on 02-25-2025 RESULT 2 Result 2 Few gram positive cocci [facility] RESULT 3on 02-25-2025 RESULT 3 Result 3 SKIRT CLIPPER [facility] RESULT 4on 02-25-2025 RESULT 4 Result 4 SKIRT CLIPPER [facility] WHITE BLOOD CELLSon 02-26-20 WHITE BLOOD CELLS White Blood Cells [facility] WHITE BLOOD CELLS Many [facility] XR Hip - right [address] [place] [address] XRay Report Signed Patient: MATEO STEARNS MR#: [id number] : 1960 Acct:[id number] Age/Sex: 64 / M ADM Date: 02/11/25 Loc: EC Attending Dr: Leonor Mart M.D. Ordering Physician: Leonor Mart M.D. Date of Service: 02/11/25 Procedure(s): XR hip RT 2V w/ pelvis Accession Number(s): [id number] cc: Kathie Sánchez SKIRT CLIPPER; Leonor Mart M.D. The [place] [id number] Patient Name: MATEO STEARNS MRN: [facility]:[id number] date: 1960 Sex: M Assigned Patient Location: Current Patient Location: Accession/Order Number: [id number] Exam Date: 02/11/2025 12:31 Report Date: 02/11/2025 [...] Cummings Jr., D.O.02/11/2025 12:34 PM Dictation Location: [place] [address] Electronically authenticated by: [id number] Y Date: 02/11/2025 12:34 Dictated By: Bobby Cummings M.D. Signed By: 02/11/25 1236 DD/ 1234 TD/TT: Bead Filler: [facility] Radiology, Radiologist, MD - 02/11/2025 [place] [address] XRay Report Signed Patient: MATEO STEARNS MR#: [id number] : 1960 Acct:[id number] Age/Sex: 64 / M ADM Date: 02/11/25 Loc: Attending Dr: Leonor Mart M.D. Ordering Physician: Leonor Mart M.D. Date of Service: 02/11/25 Procedure(s): XR hip RT 2V w/ pelvis Accession Number(s): [id number] cc: Kathie Sánchez SKIRT CLIPPER; Leonor Mart M.D. The [place] [address] Patient Name: MATEO STEARNS MRN: [facility]:[id number] date: 1960 Sex: M Assigned Patient Location: Current Patient Location: Accession/Order Number: [id number] Exam Date: 02/11/2025 12:31 Report Date: 02/11/2025 [...] Cummings Jr., D.O.02/11/2025 12:34 PM Dictation Location: [place] [address] Electronically authenticated by: [id number] Y Date: 02/11/2025 12:34 Dictated By: Bobby Cummings M.D. Signed By: 02/11/25 1236 DD/ 1234 TD/TT: Bead Filler: [facility] Radiology Study observation (narrative) [facility] XR Hip - right 3 ViewsOrdere d By: Radiologist Radiology on 02-11-2025 [facility] Work Phone: US Eye+Orbit - bilateralon 0 01-02-2025 Diagnosis: Cataract both eyes (OU) Testing Indication: Performed for preop measurements in the determination of an intraocular lens (IOL) for both eyes (OU) Test Reliability: Good quality both eyes (OU) Interpretation: Good measurements for intraocular lens (IOL) calculation purposes. Calculation made for both eyes (OU). [facility] Radiology Study observation (narrative) [facility] MHPT PSA, DIAGNOSTICon 12-05 Interpretation and review of laboratory results Abnormal [facility] PROSTATE SPECIFIC ANTIGEN DX 4.2 ng/mL High NINF - 4.00 ng/mL [facility] No Panel Informationon 12-05 [facility] CNOVon 11-02-2024 CNOV Office Visit (RADTSA ) MATEO STEARNS ([id number]) 1960 M Date Time Provider Department 11/02/24 [...] Visit Diagnosis:Malignant neoplasm of prostate (HCC) [C61] Order(s):PROSTATE-SPEC IFIC ANTIGEN DIAGNOSTIC [SQPSA] Order #: [id number] FUTURE Prescriptions as of 11/09/2024 - predniSONE [...] Encounter Status:Closed by Severo DENT on 11/09/24 [facility] CNOVon 10-29-2024 CNOV Office Visit (RADTSA ) MATEO STEARNS ([id number]) 1960 Date Time Provider Department 10/29/24 10:30 AM Severo DENT During your visit today, we recorded the following information about you: Temperature Pulse Respiration Blood pressure 97.9 degrees 81/minute 18/minute 126/84 Weight 67.7 kg Severo Dent MD 10/29/2024 10:54 AM Signed Radiation Oncology - On Treatment Review (OTR) Note PATIENT NAME: Mateo Stearns PATIENT DIAGNOSIS: Prostate adenocarcinoma, initial PSA 4.46, biopsy Rbenden score 3 + 3 = 6 (grade [...] films reviewed and current:Yes Medications started: None ASSESSMENT/PLAN:Patien t doing well. Chart and imaging reviewed. Continue [...] Encounter Status:Closed by Severo DENT on 10/29/24 Normal [facility] CNOVon 10-22-2024 CNOV Office Visit (RADTSA ) MATEO STEARNS ([id number]) 1960 M Date Time Provider Department 10/22/24 [...] films reviewed and current:Yes Medications started: None ASSESSMENT/PLAN:Patien t doing well. Chart and imaging reviewed. Continue [...] Encounter Status:Closed by Severo DENT on 10/22/24 [facility] CNOVon 10-15-2024 CNOV Office Visit (RADTSA ) MATEO STEARNS ([id number]) 1960 M Date Time Provider Department 10/15/24 [...] URI. I did recheck in 2 weeks. G Gopal Dent MD Allergies As of Date: 10/15/2024 [...] Status:Closed by Severo DENT on 10/15/24 Normal [facility] CBC W Auto Differential pane l (Bld)on 10-11-2024 Basophils (Bld) [#/Vol] 0.04 10*3/uL [facility] Differential cell count method Nom (Bld) Auto [facility] Eosinophils (Bld) [#/Vol] 0.07 10*3/uL [facility] Immature granulocytes (Bld) [#/Vol] 0.16 10*3/uL High [facility] Immature granulocytes/100 WBC (Bld) 1.1 % [facility] Lymphocytes (Bld) [#/Vol] 1.10 10*3/uL [facility] Monocytes (Bld) [#/Vol] 0.45 10*3/uL [facility] Neutrophils (Bld) [#/Vol] 12.30 10*3/uL High [facility] Nucleated RBC (Bld) [#/Vol] [facility] Nucleated RBC/100 WBC (Bld) [Ratio] 0.0 % /100 WBC [facility] Platelet mean volume (Bld) [Entitic vol] 8.6 fL Low 9.0 - 12.7 fL [facility] Platelets (Bld) [#/Vol] 317 10*3/uL [facility] WBC (Bld) [#/Vol] 14.12 10*3/uL High [facility] Basophils (Bld) [#/Vol] 0.04 10*3/uL Normal <0.11 [facility] Comment on above: Order Comment: Speci men Type: BLOOD SPECIMENOrdering Facility: [facility] Address: [address] [place] [address] Performed By: #### 5 7021-8 ####[facility] LABCLIA [id number] [place] [address] Basophils/100 WBC (Bld) 0.3 % Normal [facility] Comment on above: Order Comment: Speci men Type: BLOOD SPECIMENOrdering Facility: [facility] Address: [address] [place] [address] Performed By: #### 5 7021-8 ####[facility] LABCLIA [id number] [place] [address] Differential cell count method Nom (Bld) Auto Normal [facility] Comment on above: Order Comment: Speci men Type: BLOOD SPECIMENOrdering Facility: [facility] Address: [address] [place] [address] Performed By: #### 5 7021-8 ####[facility] LABCLIA [id number] [place] [address] Eosinophils (Bld) [#/Vol] 0.07 10*3/uL Normal <0.46 [facility] Comment on above: Order Comment: Speci men Type: BLOOD SPECIMENOrdering Facility: [facility] Address: [address] [place] [address] Performed By: #### 5 7021-8 ####[facility] LABCLIA [id number] [place] [address] Eosinophils/100 WBC (Bld) 0.5 % Normal [facility] Comment on above: Order Comment: Speci men Type: BLOOD SPECIMENOrdering Facility: [facility] Address: [address] [place] [address] Performed By: #### 5 7021-8 ####[facility] LABCLIA [id number] [place] [address] Erythrocyte distribution width (RBC) [Ratio] 13.6 % Normal 11.5-15.0 [facility] Comment on above: Order Comment: Speci men Type: BLOOD SPECIMENOrdering Facility: [facility] Address: [address] [place] [address] Performed By: #### 5 7021-8 ####[facility] LABCLIA [id number] [place] [address] Hematocrit (Bld) [Volume fraction] 43.8 % Normal 39.0-51.0 [facility] Comment on above: Order Comment: Speci men Type: BLOOD SPECIMENOrdering Facility: [facility] Address: [address] [place] [address] Performed By: #### 5 7021-8 ####[facility] LABCLIA [id number] [place] [address] Hemoglobin (Bld) [Mass/Vol] 14.8 g/dL Normal 13.0-17.0 [facility] Comment on above: Order Comment: Speci men Type: BLOOD SPECIMENOrdering Facility: [facility] Address: [address] [place] [address] Performed By: #### 5 7021-8 ####[facility] LABCLIA [id number] [place] [address] Immature granulocytes (Bld) [#/Vol] 0.16 10*3/uL High <0.10 [facility] Comment on above: Order Comment: Speci men Type: BLOOD SPECIMENOrdering Facility: [facility] Address: [address] [place] [address] Performed By: #### 5 7021-8 ####[facility] LABCLIA [id number] [place] [address] Immature granulocytes/100 WBC (Bld) 1.1 % Normal [facility] Comment on above: Order Comment: Speci men Type: BLOOD SPECIMENOrdering Facility: [facility] Address: [address] [place] [address] Performed By: #### 5 7021-8 ####[facility] LABCLIA [id number] [place] [address] Lymphocytes (Bld) [#/Vol] 1.10 10*3/uL Normal 1.00-4.00 [facility] Comment on above: Order Comment: Speci men Type: BLOOD SPECIMENOrdering Facility: [facility] Address: [address] [place] [address] Performed By: #### 5 7021-8 ####[facility] LABCLIA [id number] [place] [address] Lymphocytes/100 WBC (Bld) 7.8 % Normal [facility] Comment on above: Order Comment: Speci men Type: BLOOD SPECIMENOrdering Facility: [facility] Address: [address] [place] [address] Performed By: #### 5 7021-8 ####[facility] LABCLIA [id number] [place] [address] MCH (RBC) [Entitic mass] 30.4 pg Normal 26.0-34.0 [facility] Comment on above: Order Comment: Speci men Type: BLOOD SPECIMENOrdering Facility: [facility] Address: [address] [place] [address] Performed By: #### 5 7021-8 ####[facility] LABCLIA [id number] [place] [address] MCHC (RBC) [Mass/Vol] 33.8 g/dL Normal 30.5-36.0 [facility] Comment on above: Order Comment: Speci men Type: BLOOD SPECIMENOrdering Facility: [facility] Address: [address] [place] [address] Performed By: #### 5 7021-8 ####[facility] LABIA [id number] [place] [address] MCV (RBC) [Entitic vol] 89.9 fL Normal 80.0-100.0 [facility] Comment on above: Order Comment: Speci men Type: BLOOD SPECIMENOrdering Facility: [facility] Address: [address] [place] [address] Performed By: #### 5 7021-8 ####[facility] LABCLIA [id number] [place] [address] Monocytes (Bld) [#/Vol] 0.45 10*3/uL Normal <0.87 [facility] Comment on above: Order Comment: Speci men Type: BLOOD SPECIMENOrdering Facility: [facility] Address: [address] [place] [address] Performed By: #### 5 7021-8 ####[facility] LABCLIA [id number] [place] [address] Monocytes/100 WBC (Bld) 3.2 % Normal [facility] Comment on above: Order Comment: Speci men Type: BLOOD SPECIMENOrdering Facility: [facility] Address: [address] [place] [address] Performed By: #### 5 7021-8 ####[facility] LABCLIA [id number] [place] [address] Neutrophils (Bld) [#/Vol] 12.30 10*3/uL High 1.45-7.50 [facility] Comment on above: Order Comment: Speci men Type: BLOOD SPECIMENOrdering Facility: [facility] Address: [address] [place] [address] Performed By: #### 5 7021-8 ####[facility] LABCLIA [id number] [place] [address] Neutrophils/100 WBC (Bld) 87.1 % Normal [facility] Comment on above: Order Comment: Speci men Type: BLOOD SPECIMENOrdering Facility: [facility] Address: [address] [place] [address] Performed By: #### 5 7021-8 ####[facility] LABCLIA [id number] [place] [address] Nucleated RBC (Bld) [#/Vol] 10*3/uL Normal <0.01 [facility] Comment on above: Order Comment: Speci men Type: BLOOD SPECIMENOrdering Facility: [facility] Address: [address] [place] [address] Performed By: #### 5 7021-8 ####[facility] LABCLIA [id number] [place] [address] Nucleated RBC/100 WBC (Bld) [Ratio] 0.0 /100 WBC Normal [facility] Comment on above: Order Comment: Speci men Type: BLOOD SPECIMENOrdering Facility: [facility] Address: [address] [place] [address] Performed By: #### 5 7021-8 ####[facility] LABCLIA [id number] [place] [address] Platelet mean volume (Bld) [Entitic vol] 8.6 fL Low 9.0-12.7 [facility] Comment on above: Order Comment: Speci men Type: BLOOD SPECIMENOrdering Facility: [facility] Address: [address] [place] [address] Performed By: #### 5 7021-8 ####[facility] LABCLIA [id number] [place] [address] Platelets (Bld) [#/Vol] 317 10*3/uL Normal 150-400 [facility] Comment on above: Order Comment: Speci men Type: BLOOD SPECIMENOrdering Facility: [facility] Address: [address] [place] [address] Performed By: #### 5 7021-8 ####[facility] LABIA [id number] [place] [address] RBC (Bld) [#/Vol] 4.87 10*6/uL Normal 4.20-6.00 [facility] Comment on above: Order Comment: Speci men Type: BLOOD SPECIMENOrdering Facility: [facility] Address: [address] [place] [address] Performed By: #### 5 7021-8 ####[facility] LABCLIA [id number] [place] [address] WBC (Bld) [#/Vol] 14.12 10*3/uL High 3.70-11.00 [facility] Comment on above: Order Comment: Speci men Type: BLOOD SPECIMENOrdering Facility: [facility] Address: [address] [id number] Performed By: #### 5 7021-8 ####[facility] LABCLIA [id number] [place] [address] [facility] CBC W AUTO DIFF BLDon [facility] BASOPHILS # BLD AUTO 0.04 [facility] [place] DIFFERENTIAL METHOD BLD Auto [facility] EOSINOPHIL # BLD AUTO 0.07 [facility] [place] LYMPHOCYTES # BLD AUTO 1.1 [facility] MONOCYTES # BLD AUTO 0.45 [facility] [place] NEUTROPHILS # BLD AUTO 12.3 High [facility] NRBC # BLD AUTO <0.01 [facility] [place] NRBC/100 WBC BLD-RTO 0 /100 WBC [facility] PLATELET # BLD AUTO 317 [facility] PMV BLD AUTO 8.6 fL Low 9.0 - 12.7 fL [facility] WBC # BLD AUTO 14.12 High [facility] IMM GRANULOCYTES # BLD AUTO 0.16 High [facility] [place] IMM GRANULOCYTES/LEUK NFR BLD AUTO 1.1 % [facility] Specimen Type: BLOOD SPECIMEN [facility] Address: [address] [place] [address] Original Ordering Provider: Severo Mohan 10-11-2024 CNOV Office Visit (RADTSA ) JINNYMATEO MARSHALL ([id number]) 1960 M Date Time Provider Department 10/11/24 10:45 AM LAB/[facility] ANA CARI During your visit today, we recorded the following information about you: Dayanna Call LPN 10/11/2024 10:55 AM Signed Mateo Schuyler Stearns presents in office today for: Lab Draw only . Ordering Provider: Gopal Dent M.D. Test (s) ordered: CBC Method for obtaining blood: Phlebotomy was performed, accessing left antecubital vein. Needle removed intact. Dressing secured. Patient denies discomfort, dizziness, light-headedness or weakness and left the department without assist. Dayanna Call LPN Referring Provider: Severo DENT [[id number]] Allergies As of Date: 10/11/2024 (No Known Allergies) Date Reviewed: 10/01/2024 Reviewed by: Mona Melvin RN - Fully Assessed Visit Diagnosis:Malignant neoplasm of prostate (HCC) [C61] Order(s):COMPLETE BLOOD COUNT AND DIFFERENTIAL [SQCBCDIF] Order #: [id number]. #:[id number] Prescriptions as of 10/11/2024 - predniSONE (DELTASONE) [...] 06/24/2024 Visit Notes: >> Dayanna Call LPN [facility] Oct 11, 2024 10:55 AM Status: Signed [...] Status:Closed by DAYANNA CALL on 10/11/24 Normal [facility] Laboratory - Hematology and Cell countson 10-11-2024 Basophils/100 WBC (Bld) 0.3 % [facility] Eosinophils/100 WBC (Bld) 0.5 % [facility] Erythrocyte distribution width (RBC) [Ratio] 13.6 % 11.5 - 15.0 % [facility] Hematocrit (Bld) [Volume fraction] 43.8 % 39.0 - 51.0 % [facility] Hemoglobin (Bld) [Mass/Vol] 14.8 g/dL 13.0 - 17.0 g/dL [facility] Lymphocytes/100 WBC (Bld) 7.8 % [facility] MCH (RBC) [Entitic mass] 30.4 pg 26.0 - 34.0 pg [facility] MCHC (RBC) [Mass/Vol] 33.8 g/dL 30.5 - 36.0 g/dL [facility] MCV (RBC) [Entitic vol] 89.9 fL 80.0 - 100.0 fL [facility] Monocytes/100 WBC (Bld) 3.2 % [facility] Neutrophils/100 WBC (Bld) 87.1 % [facility] RBC (Bld) [#/Vol] 4.87 10*6/uL 4.20 - 6.0 0 m/uL [facility] No Panel Informationon 10-11 Interpretation and review of laboratory results Abnormal [facility] CNOVon 10-08-2024 CNOV Office Visit (RADTSA ) JINNYMATEO MARSHALL ([id number]) 1960 M Date Time Provider Department 10/08/24 [...] outlined. Slight elevation WBC recheck this week. G Gopal Dent MD Allergies As of Date: 10/08/2024 (No Known Allergies) Date Reviewed: 10/01/2024 Reviewed by: Mona Melvin RN - Fully Assessed Primary Visit Diagnosis:Malignant neoplasm of prostate (HCC) [C61] Order(s):COMPLETE BLOOD COUNT AND DIFFERENTIAL [SQCBCDIF] Order #: [id number] FUTURE Prescriptions as of 10/08/2024 - predniSONE [...] Status:Closed by Severo DENT on 10/08/24 Normal [facility] CBC W Auto Differential pane l (Bld)on 10-04-2024 Basophils (Bld) [#/Vol] 0.03 10*3/uL [facility] Differential cell count method Nom (Bld) Auto [facility] Eosinophils (Bld) [#/Vol] [facility] Eosinophils/100 WBC (Bld) 0.0 % [facility] Hemoglobin (Bld) [Mass/Vol] 15.0 g/dL 13.0 - 17.0 g/dL [facility] Immature granulocytes (Bld) [#/Vol] 0.10 10*3/uL High [facility] Immature granulocytes/100 WBC (Bld) 0.9 % [facility] Lymphocytes (Bld) [#/Vol] 1.30 10*3/uL [facility] Monocytes (Bld) [#/Vol] 0.40 10*3/uL [facility] Neutrophils (Bld) [#/Vol] 9.47 10*3/uL High [facility] Nucleated RBC (Bld) [#/Vol] [facility] Nucleated RBC/100 WBC (Bld) [Ratio] 0.0 % /100 WBC [facility] Platelet mean volume (Bld) [Entitic vol] 8.6 fL Low 9.0 - 12.7 fL [facility] Platelets (Bld) [#/Vol] 330 10*3/uL [facility] WBC (Bld) [#/Vol] 11.30 10*3/uL High [facility] Basophils (Bld) [#/Vol] 0.03 10*3/uL Normal <0.11 [facility] Comment on above: Order Comment: Speci men Type: BLOOD SPECIMENOrdering Facility: [facility] Address: [address] [place] [address] Performed By: #### 5 7021-8 ####[facility] LABCLIA [id number] [place] [address] Basophils/100 WBC (Bld) 0.3 % Normal [facility] Comment on above: Order Comment: Speci men Type: BLOOD SPECIMENOrdering Facility: [facility] Address: [address] [place] [address] Performed By: #### 5 7021-8 ####[facility] LABCLIA [id number] [place] [address] Differential cell count method Nom (Bld) Auto Normal [facility] Comment on above: Order Comment: Speci men Type: BLOOD SPECIMENOrdering Facility: [facility] Address: [address] [place] [address] Performed By: #### 5 7021-8 ####[facility] LABCLIA [id number] [place] [address] Eosinophils (Bld) [#/Vol] 10*3/uL Normal <0.46 [facility] Comment on above: Order Comment: Speci men Type: BLOOD SPECIMENOrdering Facility: [facility] Address: [address] [place] [address] Performed By: #### 5 7021-8 ####[facility] LABCLIA [id number] [place] [address] Eosinophils/100 WBC (Bld) 0.0 % Normal [facility] Comment on above: Order Comment: Speci men Type: BLOOD SPECIMENOrdering Facility: [facility] Address: [address] [place] [address] Performed By: #### 5 7021-8 ####[facility] LABCLIA [id number] [place] [address] Erythrocyte distribution width (RBC) [Ratio] 13.5 % Normal 11.5-15.0 [facility] Comment on above: Order Comment: Speci men Type: BLOOD SPECIMENOrdering Facility: [facility] Address: [address] [place] [address] Performed By: #### 5 7021-8 ####[facility] LABCLIA [id number] [place] [address] Hematocrit (Bld) [Volume fraction] 43.9 % Normal 39.0-51.0 [facility] Comment on above: Order Comment: Speci men Type: BLOOD SPECIMENOrdering Facility: [facility] Address: [address] [place] [address] Performed By: #### 5 7021-8 ####[facility] LABIA [id number] [place] [address] Hemoglobin (Bld) [Mass/Vol] 15.0 g/dL Normal 13.0-17.0 [facility] Comment on above: Order Comment: Speci men Type: BLOOD SPECIMENOrdering Facility: [facility] Address: [address] [place] [address] Performed By: #### 5 7021-8 ####[facility] LABCLIA [id number] [place] [address] Immature granulocytes (Bld) [#/Vol] 0.10 10*3/uL High <0.10 [facility] Comment on above: Order Comment: Speci men Type: BLOOD SPECIMENOrdering Facility: [facility] Address: [address] [place] [address] Performed By: #### 5 7021-8 ####[facility] LABCLIA [id number] [place] [address] Immature granulocytes/100 WBC (Bld) 0.9 % Normal [facility] Comment on above: Order Comment: Speci men Type: BLOOD SPECIMENOrdering Facility: [facility] Address: [address] [place] [address] Performed By: #### 5 7021-8 ####[facility] LABCLIA [id number] [place] [address] Lymphocytes (Bld) [#/Vol] 1.30 10*3/uL Normal 1.00-4.00 [facility] Comment on above: Order Comment: Speci men Type: BLOOD SPECIMENOrdering Facility: [facility] Address: [address] [place] [address] Performed By: #### 5 7021-8 ####[facility] LABCLIA [id number] [place] [address] Lymphocytes/100 WBC (Bld) 11.5 % Normal [facility] Comment on above: Order Comment: Speci men Type: BLOOD SPECIMENOrdering Facility: [facility] Address: [address] [place] [address] Performed By: #### 5 7021-8 ####[facility] LABCLIA [id number] [place] [address] MCH (RBC) [Entitic mass] 30.5 pg Normal 26.0-34.0 [facility] Comment on above: Order Comment: Speci men Type: BLOOD SPECIMENOrdering Facility: [facility] Address: [address] [place] [address] Performed By: #### 5 7021-8 ####[facility] LABIA [id number] [place] [address] MCHC (RBC) [Mass/Vol] 34.2 g/dL Normal 30.5-36.0 [facility] Comment on above: Order Comment: Speci men Type: BLOOD SPECIMENOrdering Facility: [facility] Address: [address] [place] [address] Performed By: #### 5 7021-8 ####[facility] LABCLIA [id number] [place] [address] MCV (RBC) [Entitic vol] 89.2 fL Normal 80.0-100.0 [facility] Comment on above: Order Comment: Speci men Type: BLOOD SPECIMENOrdering Facility: [facility] Address: [address] [place] [address] Performed By: #### 5 7021-8 ####[facility] LABCLIA [id number] [place] [address] Monocytes (Bld) [#/Vol] 0.40 10*3/uL Normal <0.87 [facility] Comment on above: Order Comment: Speci men Type: BLOOD SPECIMENOrdering Facility: [facility] Address: [address] [place] [address] Performed By: #### 5 7021-8 ####[facility] LABCLIA [id number] [place] [address] Monocytes/100 WBC (Bld) 3.5 % Normal [facility] Comment on above: Order Comment: Speci men Type: BLOOD SPECIMENOrdering Facility: [facility] Address: [address] [place] [address] Performed By: #### 5 7021-8 ####[facility] LABCLIA [id number] [place] [address] Neutrophils (Bld) [#/Vol] 9.47 10*3/uL High 1.45-7.50 [facility] Comment on above: Order Comment: Speci men Type: BLOOD SPECIMENOrdering Facility: [facility] Address: [address] [place] [address] Performed By: #### 5 7021-8 ####[facility] LABCLIA [id number] [place] [address] Neutrophils/100 WBC (Bld) 83.8 % Normal [facility] Comment on above: Order Comment: Speci men Type: BLOOD SPECIMENOrdering Facility: [facility] Address: [address] [place] [address] Performed By: #### 5 7021-8 ####[facility] LABCLIA [id number] [place] [address] Nucleated RBC (Bld) [#/Vol] 10*3/uL Normal <0.01 [facility] Comment on above: Order Comment: Speci men Type: BLOOD SPECIMENOrdering Facility: [facility] Address: [address] [place] [address] Performed By: #### 5 7021-8 ####[facility] LABCLIA [id number] [place] [address] Nucleated RBC/100 WBC (Bld) [Ratio] 0.0 /100 WBC Normal [facility] Comment on above: Order Comment: Speci men Type: BLOOD SPECIMENOrdering Facility: [facility] Address: [address] [place] [address] Performed By: #### 5 7021-8 ####[facility] LABCLIA [id number] [place] [address] Platelet mean volume (Bld) [Entitic vol] 8.6 fL Low 9.0-12.7 [facility] Comment on above: Order Comment: Speci men Type: BLOOD SPECIMENOrdering Facility: [facility] Address: [address] [place] [address] Performed By: #### 5 7021-8 ####[facility] LABCLIA [id number] [place] [address] Platelets (Bld) [#/Vol] 330 10*3/uL Normal 150-400 [facility] Comment on above: Order Comment: Speci men Type: BLOOD SPECIMENOrdering Facility: [facility] Address: [address] [place] [address] Performed By: #### 5 7021-8 ####[facility] LABCLIA [id number] [place] [address] RBC (Bld) [#/Vol] 4.92 10*6/uL Normal 4.20-6.00 [facility] [place] [facility] Comment on above: Order Comment: Speci men Type: BLOOD SPECIMENOrdering Facility: [facility] Address: [address] [place] [address] Performed By: #### 5 7021-8 ####[facility] LABCLIA [id number] [place] [address] WBC (Bld) [#/Vol] 11.30 10*3/uL High 3.70-11.00 [facility] Comment on above: Order Comment: Speci men Type: BLOOD SPECIMENOrdering Facility: [facility] Address: [address] [place] [address] Performed By: #### 5 7021-8 ####[facility] LABCLIA [id number] [place] [address] [facility] CBC W AUTO DIFF BLDon [facility] BASOPHILS # BLD AUTO 0.03 [facility] [place] DIFFERENTIAL METHOD BLD Auto [facility] EOSINOPHIL # BLD AUTO <0.03 [facility] [place] LYMPHOCYTES # BLD AUTO 1.3 [facility] MONOCYTES # BLD AUTO 0.4 [facility] [place] NEUTROPHILS # BLD AUTO 9.47 High [facility] NRBC # BLD AUTO <0.01 [facility] [place] NRBC/100 WBC BLD-RTO 0 /100 WBC [facility] PLATELET # BLD AUTO 330 [facility] PMV BLD AUTO 8.6 fL Low 9.0 - 12.7 fL [facility] WBC # BLD AUTO 11.3 High [facility] Eosinophils/100 WBC (Bld) 0 % [facility] Hemoglobin (Bld) [Mass/Vol] 15 g/dL 13.0 - 17.0 g/dL [facility] IMM GRANULOCYTES # BLD AUTO 0.1 High NINF [facility] IMM GRANULOCYTES/LEUK NFR BLD AUTO 0.9 % [facility] Healthcare Specimen Type: BLOOD SPECIMEN [facility] Address: [address], [place] [id number] Original Ordering Provider: Severo Mohan 10-04-2024 CNOV Office Visit (RADTSA ) MATEO STEARNS ([id number]) 1960 M Date Time Provider Department 10/04/24 [...] BLOOD COUNT AND DIFFERENTIAL [SQCBCDIF] Order #: [id number]. #:[id number] Prescriptions as of 10/04/2024 - predniSONE (DELTASONE) [...] 06/24/2024 Visit Notes: >> Dayanna Call LPN [facility] Oct 04, 2024 3:20 PM Status: Signed [...] Status:Closed by DAYANNA CALL on 10/04/24 Normal [facility] Laboratory - Hematology and Cell countson 10-04-2024 Basophils/100 WBC (Bld) 0.3 % [facility] Erythrocyte distribution width (RBC) [Ratio] 13.5 % 11.5 - 15.0 % [facility] Hematocrit (Bld) [Volume fraction] 43.9 % 39.0 - 51.0 % [facility] Lymphocytes/100 WBC (Bld) 11.5 % [facility] MCH (RBC) [Entitic mass] 30.5 pg 26.0 - 34.0 pg [facility] MCHC (RBC) [Mass/Vol] 34.2 g/dL 30.5 - 36.0 g/dL [facility] MCV (RBC) [Entitic vol] 89.2 fL 80.0 - 100.0 fL [facility] Monocytes/100 WBC (Bld) 3.5 % [facility] Neutrophils/100 WBC (Bld) 83.8 % [facility] RBC (Bld) [#/Vol] 4.92 10*6/uL 4.20 - 6.0 0 m/uL [facility] No Panel Informationon 10-04 Interpretation and review of laboratory results Abnormal [facility] CNOVon 10-01-2024 CNOV Office Visit (RADTSA ) JINNYMATEO MARSHALL ([id number]) 1960 M Date Time Provider Department 10/01/24 10:30 AM Severo DENT During your visit today, we recorded the following information about you: Temperature Pulse Respiration Blood pressure 97.9 degrees 99/minute 18/minute 129/83 Weight 67.6 kg Severo Dent MD 10/01/2024 10:51 AM Signed Radiation Oncology - On Treatment Review (OTR) Note PATIENT NAME: Mateo Stearns PATIENT DIAGNOSIS: Prostate adenocarcinoma, initial PSA 4.46, biopsy Alfred score 3 + 3 = 6 (grade [...] Encounter Status:Closed by Severo DENT on 10/01/24 [facility] CNOVon 09-25-2024 CNOV Office Visit (RADTSA ) MATEO STEARNS ([id number]) 1960 M Date Time Provider Department 09/25/24 2:00 PM Severo DENT [facility] During your visit today, we recorded the following information about you: Weight 67.1 kg Severo Dent MD 09/26/2024 4:56 PM Signed Radiation Oncology - On Treatment Review (OTR) Note PATIENT NAME: Mateo Stearns PATIENT DIAGNOSIS: Prostate adenocarcinoma, initial PSA 4.46, biopsy Alfred score 3 + 3 = 6 (grade [...] Severo Dent MD Referring Provider: Severo DENT [[id number]] Allergies As of Date: 09/25/2024 (No Known [...] Encounter Status:Closed by Severo DENT on 09/26/24 [facility] 09-24-2024 [facility] Telephone (AvokiaA) MATEO STEARNS ([id number]) 1960 M Date Time Provider Department 09/24/24 Severo DENT [employer] During your visit today, we recorded the [...] BLOOD COUNT AND DIFFERENTIAL [SQCBCDIF] Order #: [id number] FUTURE Prescriptions as of 09/24/2024 - predniSONE [...] Encounter Status:Closed by DAYANNA CALL on 09/24/24 [facility] CNOVon 09-17-2024 CNOV Office Visit (RADTSA ) MATEO STEARNS ([id number]) 1960 Date Time Provider Department 09/17/24 11:45 AM Severo DENT During your visit today, we recorded the following information about you: Referring Provider: Severo DENT [[id number]] Allergies As of Date: 09/17/2024 (No Known Allergies) Date Reviewed: 09/11/2024 Reviewed by: Dayanna Call LPN - Fully Assessed Reason for Visit: Simulation Request Form [4065] Primary Visit Diagnosis:Malignant neoplasm of prostate (HCC) [C61] Order(s):RADIATION TREATMENT PER RADIATION ONCOLOGIST PLAN [[id number]] Order #: [id number]: 1 PT ED CANCER [2630362] Order #: [id number]: 1 CT SIM PLANNING RADIATION ONCOLOGY [1327632] Order #: [id number] Prescriptions as of 09/17/2024 - predniSONE (DELTASONE) [...] Encounter Status:Closed by Severo DENT on 09/17/24 [facility] 09-14-2024 [facility] Telephone (AvokiaA) MATEO STEARNS ([id number]) 1960 Date Time Provider Department 09/14/24 Severo [...] and I have him scheduled with a [facility] appointment (Phone call) to discuss his Financial [...] Encounter Status:Closed by MONA MELVIN on 09/14/24 [facility] CNOVon 09-11-2024 CNOV Office Visit (RADTSA ) MATEO STEARNS ([id number]) 1960 M Date Time Provider Department 09/11/24 1:45 PM Severo DENT RADTSA During your visit [...] ASSESSMENT/PLAN: Prostate adenocarcinoma, initial PSA 4.46, biopsy Alfred score 3 + 3 = 6 (grade [...] IMRT a (more content not included)... [facility] Interpretation and review of laboratory results Abnormal [facility] PROSTATE SPECIFIC ANTIGEN DX 7.20 ng/mL High NINF - 4.00 ng/mL [facility] No Panel Informationon 09-07 [facility] CNOVon 07-12-2024 CNOV Office Visit (RADTSA ) MATEO STEARNS ([id number]) 1960 [place] Date Time Provider Department 07/12/24 [...] be checked (more content not included)... Normal [facility] CNOVon 06-21-2024 CNOV Office Visit (RADTSA ) MATEO STEARNS ([id number]) 1960 M Date Time Provider Department 06/21/24 1:15 PM Severo DENT During your visit today, we recorded the following information about you: Temperature Pulse Respiration Blood pressure 97.5 degrees 86/minute 20/minute 124/75 Weight Height 67.8 kg 1.702 m Dayanna Call LPN 06/21/2024 1:50 PM Signed Pacemaker/Defibrillato r?N Previous Cancer(s)?N Previous Radiation?N Lupus/Scleroderma?N On body monitoring device?N AUA= 5 Severo Dent MD 06/21/2024 1:50 PM Signed Radiation Oncology - Prostate Cancer New Patient/Consult Note PATIENT NAME: Mateo Stearns PATIENT REQUESTING PROVIDER: Dr. Vora DIAGNOSIS: 63 year old male with prostate adenocarcinoma, initial PSA 4.46, biopsy Alfred score 3 + 3 = 6 (grade [...] muscle aches (more content not included)... Normal [facility] CNOVon 06-01-2024 CNOV Office Visit (ZAK ) MATEO STEARNS ([id number]) 1960 [place] Date Time Provider Department 06/01/24 1:45 PM AMANDEEP CRISOSTOMO During your visit today, we recorded the following information about you: Pulse Blood pressure Weight Height 88/minute 138/81 68 kg 1.753 m Amandeep Crisostomo MD 06/24/2024 4:18 PM Signed Referring Provider: Chief Complaint: Recently diagnosed CaP HPI: 63 year old male from [place], [place] with a PMHx of COPD (40 pack-year smoker), Afib (on ASA), and GERD diagnosed with CAP in 05/20 which showed 2 cores of Alfred 6 disease. He has sever COPD with [...] or weakness, headaches and dizziness or syncope. HEMATOLOGIC/LYMPHATIC/ IMMUNOLOGIC:Negative for prolonged bleeding, bruising easily or swollen [...] review Assessment 63 year old male from [place], [place] with a PMHx of COPD (40 pack-year smoker and poor oxygenation status), Afib (on ASA), and GERD diagnosed with CAP in 05/20 which showed 2 cores of Brenden 6 disease. Recently had more + cores on a repeat biopsy and is here (more content not included)... Normal [facility] URINALYSIS, REFLEX MICROSCOP ICon 06-01-2024 Bilirubin Ql (U) Negative Negative [facility] Clarity (Unsp spec) Clear Clear [facility] Color (U) Yellow Yellow [facility] Glucose Test strip (U) [Mass/Vol] Negative Negative [facility] Hemoglobin Ql (U) Negative Negative [facility] Interpretation and review of laboratory results Normal [facility] Ketones Ql (U) Negative Negative [facility] Leukocyte esterase Test strip Ql (U) Negative Negative [facility] Nitrite Ql (U) Negative Negative [facility] pH (U) 5.5 [pH] NINF - 8.5 [facility] Protein (U) [Mass/Vol] Negative Negative [facility] Specific gravity (U) [Rel density] 1.009 1.005 - 1.030 [facility] Urobilinogen Ql (U) 0.2 EU/dL 0.2-1.0 EU/dL [facility] This test was developed and its performance characteristics determined by [facility]'s [facility] Pathology and Laboratory Medicine [place] ([facility]). It has not been cleared or approved by the FDA. -[facility] is regulated under CLIA as qualified to perform high-complexity testing. This test is used for clinical purposes. It should not be regarded as investigational or for research. [facility] Bilirubin Ql (U) Negative Normal Negative [facility] Comment on above: Order Comment: Speci men Type: URINE SPECIMENOrdering Facility: [facility] Address: [address] [place] [address] Performed By: #### L [id number] ####[facility] LABIA [id number] [place] [address] [place] Clarity (Unsp spec) Clear Normal Clear [facility] [place] [facility] Comment on above: Order Comment: Speci men Type: URINE SPECIMENOrdering Facility: [facility] Address: [address] [place] [address] Performed By: #### L [id number] ####[facility] LABIA [id number] [place] [address] [place] Color (U) Yellow Normal Yellow [facility] Comment on above: Order Comment: Speci men Type: URINE SPECIMENOrdering Facility: [facility] Address: [address] [place] [address] Performed By: #### L [id number] ####[facility] LABCLIA [id number] [place] [address] [place] Glucose Test strip (U) [Mass/Vol] Negative Normal Negative [facility] Comment on above: Order Comment: Speci men Type: URINE SPECIMENOrdering Facility: [facility] Address: [address] [place] [address] Performed By: #### L [id number] ####[facility] LABCLIA [id number] [place] [address] [place] Hemoglobin Ql (U) Negative Normal Negative [place] Comment on above: Order Comment: Speci men Type: URINE SPECIMENOrdering Facility: [facility] Address: [address] [place] [address] Performed By: #### L [id number] ####[facility] LABCLIA [id number] [place] [address] [place] Ketones Ql (U) Negative Normal Negative [facility] Comment on above: Order Comment: Speci men Type: URINE SPECIMENOrdering Facility: [facility] Address: [address] [place] [address] Performed By: #### L [id number] ####[facility] LABCLIA [id number] [place] [address] [place] Leukocyte esterase Test strip Ql (U) Negative Normal Negative [facility] Comment on above: Order Comment: Speci men Type: URINE SPECIMENOrdering Facility: [facility] Address: [address] [place], [place] [address] Performed By: #### L [id number] ####[facility] LABCLIA [id number] [place] [address] [place] Nitrite Ql (U) Negative Normal Negative [facility] Comment on above: Order Comment: Speci men Type: URINE SPECIMENOrdering Facility: [facility] Address: [address] [place] [address] Performed By: #### L [id number] ####[facility] LABCLIA [id number] [place] [address] [place] pH (U) 5.5 [pH] Normal <8.5 [facility] Comment on above: Order Comment: Speci men Type: URINE SPECIMENOrdering Facility: [facility] Address: [address] [place] [address] Performed By: #### L [id number] ####[facility] LABCLIA [id number] [place] [address] [place] Protein (U) [Mass/Vol] Negative Normal Negative [facility] Comment on above: Order Comment: Speci men Type: URINE SPECIMENOrdering Facility: [facility] Address: [address] [place] [address] Performed By: #### L [id number] ####[facility] LABCLIA [id number] [place] [address] [place] Specific gravity (U) [Rel density] 1.009 Normal 1.005-1.030 [facility] Comment on above: Order Comment: Speci men Type: URINE SPECIMENOrdering Facility: [facility] Address: [address] [place] [address] Performed By: #### L [id number] ####[facility] LABIA [id number] [place] [address] [place] Urobilinogen Ql (U) 0.2 EU/dL Normal 0.2-1.0 EU/dL [facility] Comment on above: Order Comment: Speci men Type: URINE SPECIMENOrdering Facility: [facility] Address: [address] [place] [address] Performed By: #### L [id number] ####[facility] LABCLIA [id number] JOSE ALFREDOAsia [place]AY[place]DO [id number] [address] [place] Ambulatory Visit Summaryon [...] mcg/inh Aerosol-Adpt) aspirin benzonatate (Tessalon Perles) budesonide-formoterol (budesonide-formoterol 160 mcg-4.5 mcg/inh Inh Aer w/adapter) diltiazem [...] [facility] [address] , [place] [phone] Someone Will Contact You Regarding These Appointments [facility] External Ambulatory Referral, Other (needs [...] physician if questions or concerns Unchanged budesonide-formoterol (budesonide-formoterol 160 mcg-4.5 mcg/ inh Inh Aer w/ [...] often, espec (more content not included)... Normal [facility] Patient Educationon 05-21-20 Patient Education Oncology [...] likelihood that the cancer will spread. ? Alfred 6 or lower: This indicates that the cancer cells look similar to normal prostate cells (well differentiated). ? Alfred 7: This indicates that the cancer cells [...] external be (more content not included)... Normal [facility] Urology Office/Clinic Noteon 05-21-2024 Urology Office/Clinic [...] 10%. 2 HGPINs. S/p TRUS/bx 05/01/24 - Alfred 6 (3+3) in 9/12 cores. 30% core [...] Reina, URL [facility] [address] [place] [address] [phone] Additional Instructions: referral to [facility] to discuss [...] zoste (more content not included)... Normal [facility] Comment on above: Result Comment: Elec tronically Signed By: Rufina VORA MD\.br\Date and Time Signed: 05/21/24 12:44 EDT\.br\Electronically Co-Signed By: Vesta Cortes\.br\Date and Time Co-Signed: 05/21/24 12:43 EDT Coding Summary.on 05-17-2024 Coding Summary. JCPEIevp25DAl5cTn+PG hl YWQ+MY2HRBQtR50xaOAisR 1vW4NXULpKZrucQGJXDTeH XdBjyeHsEV5stRBdSNDs IC8+EC1qQDGwSncahOWoi4 K9bUC9O50iaa0mGNmtzGF2 LTUtUoFqftlib5ywdKq5OM cuNmluOyBt DQHogC97SMX4cH47Ip66pS HagWXqc6uluVy0GlJfGJZo JCK8aSubCOcxg4KkEARkH3 0baYPdk1G9 UZHqfRfqpEDvAtGstNK4dS 5tYNehprqex6bygdstXas5 yt03wGQck5C4tOA1T4Qach Q3CJYuqQTv NryicNOVxI6svgkof9osjd cyVtAqSCOyUAa6BEn1XUQf zGwpUpEdTU15HZB9RNBxov KlY3MhTOZa kXonLgO7w9I0Yq1DO0TMAh mjM5RVLFWSNOcmjEM+PC90 ai14Y0OsIlirSez4OASkSX X4cJD1wU9h CGGxDIoqu4U5nRW7L1Uwzg Stqq3nj9feGPQwTNqxL94d xGXvi6K7CABspUU8DVNznC aaAkMvfY82 Oyc+LYMjxUpsm2RhGnwev1 sev5mtoIv8OaimIQTiypHa wRjtYIS0l5GjBz3mIQIaxD P9zAE6kD3n RbQwYdN1KSpkQ024FvNbnB FoWwxdD41cF6FqdDC+PHRy Nuv6XGIvvCccCT6jN5ZbZN RpbmctbGVm mWybDO0aGSGlqlnzMWBuyB 0xMZXcS0m7TnHlBnJ1ZMer W0LeBINntlcvPn53aS7wHi ByGfL0DYej G7BxexO0TBSipLCsGRzsTZ F5K84um3Q5SSKjAKYsVMB2 cNQ1nP5twLhdhxjjjQZbcW sgdmVydGlj EFkjBJadX205WYAquSlgNh NvZGluZyBEYXRlOiAgMDYv MjAvMjAyNDwvdGQ+PHRkIH V0kRkeISVb xQDmYWjxGy9ckXbvaTgqAL 2wUMRvhltpLRZsgE1tLYSo wHTiiNgmZX8kWRMvnxnea5 79UzJmMWS2 STXitNNgO4XufT5iQlDrGK NoJDFeB6FmeDCnYIilP082 IRdsWtQ1ATIsgyAwZ5PpSS FsaWduOiB0 q9X3Gc9Du2PiioxcC7AqoA NkXxMkSgdkFUo5N8DzOlmm dHI+IA91KIWrSF91FGz6TL Q4yAwxUSvt YTNdS4BdqS0rAjHeQIIoEW RkOyc+PHRhYmxlIHdpZHRo EIxkDEZzCoKkxCszNR1gTj 9yZGVyLWNv gUlcmZEuXzFef8rqZLXiNB fpVS7naPfnI5OzuAC4TAEf w2o1Ly15T05qH9JzuZF+PG DekIA6oIZ5 kQ2xGtSsSzW7NVrgN659En KlqTIgPqnal3mik5nclJo3 NeU5ZNJbrsEnzKbrIHY1w2 GwIu93K40a IHdpZHRoPSIxNSUiIHZhbG kgcv7uyY1qKq8+PGNvbCB3 cBO5iL5qBdXlYhX3ITdrN1 49InRvcCIv Hivlg1cey0othBm9JeNuQQ BqmxSufGgaVMK7r1SyCf51 K4RntKzqp2RhMhl7ln32nJ Zly6U9iPP3 Z8UuOUTulebaqZDudHgvWJ 3uKISdspqoSIBtvC9rOJRm G4x5QaFpSeT1NEgoC9Leyk L0WVZopQKq UAKdkLXWaO5ihhetb1pjsr keZzUwTTXeQWk3IUg4CTZs bObtGlKuDHS7HjC3EQT9pL XmeV7ssUdd zbuusE4dDdv+EQC3iOMyfA CWKK6mQzgehCB+PHRkIHN0 aAahWPftIGCisB4dNCMhQ1 w9DdUwLiH3 KPzkF1WdabM9IJFfbQYeRU NhmSHUeI8cbtytf2ejnhuc MsSkPYBjIFo4RRu8WBKedP duOiBsZWZ0 FuY9LBO8pXBngX5trTccjr qyoA0pAea+QmlydGggRGF0 YRx0O5AiUgg2OFMphYffUJ 0ncGFkZGlu Pj6lhDmteJyjAE8rLEUzle pdt423HoObd1gkOOSceBXk MXqrDXZ1T59td7F4MBTnXW DqALP1mVE8 yT2xhVxskzhpjWHcpNugjf MmgJkiQOpoEDwvM071XOOc dYuyOnIaEEm8Z0XrPlx9BX JtpIfoEE1i mHFiHCyeCl7qxIuunOkdZA 5rLXTsmptea300QbPdi0hd GHLxaYRlWOnkDYG2U12vd9 B8DEBhZCSq WYG8zAU2tC0bzTnlzrdiaN VmdDsgdmVydGljYWwtYWxp A012UVFdhAplBxKalNn4B3 UwPxt8IUUl vMokEH8iqGJyAQjeKp3quT ajbTplDM4rSFMuumnrf754 KdRna3mcRXSufBQpGVwcSP E9E30ha9K6 OPKaAVIvHAQ6oSS4yB9zxO lnbjogbGVmdDsgdmVydGlj RObaAYdgY868YWZoqNpkDq BhdGllbnQg SQjzDOb0R8RgSrokjYU+PC 67ZZHaNY59xLHunEAnp4aq eKt2BmPsGSWjLAK6gFzmKD kpo0DnRABr X54xbVMcn8X8KYNmoRubiV JnZxYygJI1bU4bKIosppdy e0vbeycxNivzv3okhd99mD 12A71iOInd ZHRoPSIzMCUiIHZhbGlnbj 0jiJ0gGi9+OAOqnEV6uDP6 zV2eQPMlNiK2TIhgT133Tm RvcCIvPjxj m9deo0uxiDc6BwF0VRWmex VorUrnEOV5f4ZeFq99A78x IHdpZHRoPSIyMCUiIHZhbG qmaj1hjI8v Ii8+WSMajZN1nMF1pJ8pVk EqZcF5CSkiP630SjWwfBTq RivuD74aY4QnsOM+PHRyPj p5PNHzdWsu XS6zbBApORxmJg2yZBC7Le QeXlMiVOkoN7CqTSExzktt iobfjIC8FJMpKERjdO13Ci 9udDogMTBw hIDVhO2nrqrbq4ntsdwaTl EhPLYpZJb3UDe4DZTejLjx SaOrKVZ5LfJ9WSS4kDGhqC 1hbGlnbjog sB0bM6DzXSIlhaujLf74qE 7iCqIjFkT1LVrdTwm+SE9Z CWgpX9uZDOULD7NWMWErNx wvdGQ+PHRk DYX1bPymEFszTANsuG3fUE LfT1q6RlEiRyS3HIfxI3Ml FCXrmrkwSb64cQ0bEnNeUe T5BUupU2Kn xsF4MEUavYCuARjgKUP8F9 6zk9A1CDFfUMUqTVH6xYT8 zR3ltAtduscmlDChkQdkjx VydGljYWwt ODdqZ133YMMjaTqfYnQ7Gk Q1JfL0KHq9O0OaGxf1CCMp jBqgJH4jjYVjBUsvOn7ipL arwJqbPY0q TKTvzhqmHVCfbW2aTZQmqI GsnTftZU8lLYUbarhzp687 NrTxRIE2CLVydFOjD3LbnS 9yOiAjMDAw WYCnS1NlxYTlGLvdM113CC okRjC6EITxwaZmJ2LvGXRj zAkaDuA0r3J5Ec89YDNRFI FyczwvdGQ+ LCGpIAX9sSurIHzhQIRzpP 2nZZVrH1n5TtFuPnT8XViv T6OtRUJqxhatFe37rF0pDz ZeUqB6WEag H7XwnwU2DAPbjMFiEJpcSU F6S59vt4V3XBBcBCOtXJB8 lPV8yW6nnHhrsiubsKYpuY sgdmVydGlj LPgxYZxsN044KMSsvGbnKg 4fcDB4F8BpUse9FMZwnEay SW7lsCFgOKyfAc6gjCnqjQ crGB9tUGVe mxteNJZvjG5wMZCzdLJcvZ zgGJ6zEECocyogb155AdUa LEG3CNQdlPJrW7CrwI0pUi AjMDAwMDAw G1ZqnBToFAyxV382IKrpNr H9KIRbqfDzB9BsDJLgiAob HiE6r5J7Az8FvXPeVFLnZN 64VA98DP08 X1ZnOcudhAVzoKA+PHRhYm xlIHdpZHRoPScxMDAlJyBz yHzeTP3dAa9kFNLeSERarW xhcHNlOiBj v2boNRHbEVcbUY7lyAonG7 WwiYA2VKBbv8u9Kk91M48i I2HcpQE+WUBzlBL7oHU1fX 9tWhIkPsE8 NDasC258UiJbiVOtLutih1 pnz2xoeOn2KoLvJDDumcTk rGkvKMG6j8VnAz08W11kWA dpZHRoPSIy RUAiMFJlyDrunq2fsU2zVv 8+LTSivYF6mQC1uQ3jGdJn UrN6NUleL956CwGqhYBrCp jbS06rP7Hg dXA+LTAtJpb3SVRufTxvKZ 1vcOCjSVguQa5zATD8NeHd RaZiYWtwB2RtRFCxcsqeju jpoIJ8LOBi FWXrwF53Gz4ndIemLn3cWN JnUBG5NNRmrNNoW2LqcY8p JfDqCVXvVSAeL1RivQLhQP qrG887IXgc UvE1BWKozsCrL0PdUNBkqR rvWyK8b6V7Xk2YfEiowGDd TX3xBpTzRYb5R4GnQyf4DR InxCdcRN4w mWEcDQapVa9tyDidgCmzYS 7jHRJaedhet444DrMqy4wm DMVxqGGbOBbrYSB8L51bh8 R5YUWnTYRj NDQ1sWN8fC5iuPyocjjweI VmdDsgdmVydGljYWwtYWxp E806WVEzeFqgGqIDFcy6L4 FbVlu1KTKg yKfvRP6fcNDqJLmzCh7csA lwxCvfQJ5wBXUlabiqg742 WhEaz0rkQPJlrGWqFLqdWL Q0P41nt4E8 YITfZJLjYQW6yDK5rF5lsR lnbjogbGVmdDsgdmVydGlj PHylAHkiO389YMAmoGuiXc 1LHuo6Z4Ol Tuf6OAVahJmnYP5hcBUfLR dgHg5imLipyQguPG7yLILw sxnqp787SiVru2ptKPHcmW QgVGltZXM7 I80ne6E4TXUmPNVjAGE2kF K1mV6iwWvwvqmtrGSdqPet wgZmoSbdSDtvFKydP744XB RvcDsnPlBh eWVyOjwvdGQ+LI36qo70C5 EoZngnCre2KGXzRZS1lNK8 zZ9hKFQvMQqgr8R3oIJ0Y1 SsoqNbho9i z6ccNIHtRXpgC (more content not included)... Normal [facility] Prostate Histology ([facility]) on 05-16-2024 Prostate Histology Diagnosis Info Invalid Interpretation Code [facility] Comment on above: Order Comment: [...] not identified. MicroScopic Description - E:Prostate,Left Lateral Jermyn:Needle Biopsy Interpretation - - Atypical glands suspicious but not diagnostic for adenocarcinoma. MicroScopic Description - F:Prostate,Left Jermyn:Needle Biopsy Interpretation - - Benign prostatic tissue. MicroScopic Description - G:Prostate,Right Base:Needle Biopsy Interpretation - - Benign prostatic tissue. MicroScopic Description - H:Prostate,Right Lateral Base:Needle Biopsy Interpretation - - Benign prostatic tissue. MicroScopic Description - I:Prostate,Right Mid:Needle Biopsy Interpretation - - Benign prostatic tissue. MicroScopic Description - J:Prostate,Right Lateral Mid:Needle Biopsy Interpretation - - Benign prostatic tissue. MicroScopic Description - K:Prostate,Right Jermyn:Needle Biopsy Interpretation - - Benign prostatic tissue. MicroScopic Description - L:Prostate,Right Lateral Jermyn:Needle Biopsy Interpretation - - Benign prostatic tissue. [...] Interpretation - - Acinar adenocarcinoma of prostate; Alfred score 6(3+3); Tumor measures 0.1 cm in length; 25% of the core involved by tumor; 1 of 2 cores involved; Perineural invasion not identified. MicroScopic Description - Q:Prostate,Left Jermyn:Needle Biopsy Interpretation - - Acinar adenocarcinoma of prostate; Alfred score 6(3+3); Tumor measures 0.1 cm in length; 3% of the core involved by tumor; 1 of 2 cores involved; MicroScopic Description - R:Prostate,Left Jermyn:Needle Biopsy Interpretation - - Benign prostatic tissue. [...] on: 05/16/2024 11:46:32 Performed By: #### 1 [id number] #### [facility] [address] [place] [address] Consent for Procedure/Surger yon 05-01-2024 Consent for Procedure/Surgery [id number]#1.0 0TIFF Normal [facility] Consent for Treatmenton -0 Consent for Treatment [id number]#1.0 0TIFF Normal [facility] IntraOperative Documentson 0 05-01-2024 IntraOperative Documents [id number]#1.0 0TIFF Normal [facility] Main OR Intraoperative Recor don 05-01-2024 Main OR Intraoperative Record IntraOp Document Type FTURO Summary Primary Physician: Rufina VORA MD Finalized Date/Time: 05/01/24 12:17:31 Pt. Name: MATEO STEARNS/Sex: 1960 Male Med Rec #: [id number] Physician: Rufina VORA MD Financial #: [id number] Pt. Type: O Room/Bed: / Admit/Disch: 05/01/24 [...] Diana Whitlock Role Performed Surgeon - Primary Internal Medicine Specialist - Primary Scrub - Primary Time In 05/01/24 11:31:00 05/01/24 11:31:00 05/01/24 11:31:00 Time Out 05/01/24 12:03:00 05/01/24 12:03:00 05/01/24 12:03:00 Procedure PROSTATE TRANSRECTAL PROSTATE TRANSRECTAL PROSTATE TRANSRECTAL ULTRASOUND WITH BIO(.) ULTRASOUND WITH BIO(.) ULTRASOUND WITH BIO(.) Comments Last Modified By: Gila MCLEAN, Mara Wong RN, Mara Wong RN, Mara Whitlock 05/01/24 Vanesa Whitlock 05/01/24 Vanesa Whitlock 05/01/24 12:03:31 12:03:31 12:03:31 Surgical Procedures FTURO [...] By: Mara Wong RN 05/01/24 12:17 Normal [facility] Main OR Preoperative Recordo n 05-01-2024 Main OR Preoperative Record Holding Area Document Type FTURO Summary Primary Physician: Rufina VORA MD Finalized Date/Time: 05/01/24 11:27:32 Pt. Name: MATEO STEARNS/Sex: 1960 Male Med Rec #: [id number] Physician: Rufina VORA MD Financial #: [id number] Pt. Type: O Room/Bed: / Admit/Disch: 05/01/24 [...] MICA Kimball RN, Ruthann 05/01/24 11:27 Normal [facility] Operative Reporton Operative Report Patient: MATEO STEARNS Age: 63 years Sex: Male : 1960 Associated Diagnoses: None Author: Rufina VORA MD Procedure Operative Information Details: Date/ Time: 05/01/2024 12:01:00. Pre-Op Dx: Hx of Prostate CA - Z85.46. Post-Op Dx: Same. Anesthesia Type: Local, Periprostatic Nerve Block. Procedure: Transrectal Ultrasound and Transrectal Ultrasound-Guided Biopsy of the Prostate. Complications: None. Risks/Benefits/Informe d Consent: Surgical risks, benefits, details of the [...] evaluation, 18 total biopsies were taken. Normal [facility] Comment on above: Result Comment: Elec tronically Signed By: DIONY CHANDLER, Rufina Bynum.brenda\Date and Time Signed: 05/01/24 12:04 EDT Outpatient Surgery Discharge Instructionon 05-01-2024 Outpatient Surgery Discharge Instruction [id number] 0TIFF Normal [facility] Patient Educationon 05-01-20 Patient Education Custom [...] for your post-operative appointment in 1-2 weeks [phone] or [phone] Normal [facility] Prostate Histology ([facility]) on 05-01-2024 PH Method of Extraction Needle Biopsy Normal [facility] Comment on above: Order Comment: left base x 3 bites Left lateral mid x 3 bites Left apex x 4 bites Performed By: #### 1 [id number] #### [facility] [address] [place] [address] PH Number of Jars 3 Invalid Interpretation Code [facility] Comment on above: Order Comment: left base x 3 bites Left lateral mid x 3 bites Left apex x 4 bites Performed By: #### 1 [id number] #### [facility] [address] [place] [address] PH Specimen 1 L Apx Prostate Normal [facility] Comment on above: Order Comment: left base x 3 bites Left lateral mid x 3 bites Left apex x 4 bites Performed By: #### 1 [id number] #### [facility] [address] [place] [address] PH Specimen 10 R Lat Bse Prost Normal [facility] Comment on above: Order Comment: left base x 3 bites Left lateral mid x 3 bites Left apex x 4 bites Performed By: #### 1 [id number] #### [facility] [address] [place] [address] PH Specimen 11 R Lat Mid Prost Normal [facility] Comment on above: Order Comment: left base x 3 bites Left lateral mid x 3 bites Left apex x 4 bites Performed By: #### 1 [id number] #### [facility] [address] [place] [address] PH Specimen 12 R Lat Apx Prost Normal [facility] Comment on above: Order Comment: left base x 3 bites Left lateral mid x 3 bites Left apex x 4 bites Performed By: #### 1 [id number] #### [facility] [address] [place] [address] PH Specimen 2 L Base Prostate Normal [facility] Comment on above: Order Comment: left base x 3 bites Left lateral mid x 3 bites Left apex x 4 bites Performed By: #### 1 [id number] #### [facility] [address] [place] [address] PH Specimen 3 L Lat Apx Prost Normal [facility] Comment on above: Order Comment: left base x 3 bites Left lateral mid x 3 bites Left apex x 4 bites Performed By: #### 1 [id number] #### [facility] [address] [place] [address] PH Specimen 4 L Lat Bse Prost Normal [facility] Comment on above: Order Comment: left base x 3 bites Left lateral mid x 3 bites Left apex x 4 bites Performed By: #### 1 [id number] #### [facility] [address] [place] [address] PH Specimen 5 L Lat Mid Prost Normal [facility] Comment on above: Order Comment: left base x 3 bites Left lateral mid x 3 bites Left apex x 4 bites Performed By: #### 1 [id number] #### [facility] [address] [place] [address] PH Specimen 6 L Mid Prostate Normal [facility] Comment on above: Order Comment: left base x 3 bites Left lateral mid x 3 bites Left apex x 4 bites Performed By: #### 1 [id number] #### [facility] [address] [place] [address] PH Specimen 7 R Apx Prostate Normal [facility] Comment on above: Order Comment: left base x 3 bites Left lateral mid x 3 bites Left apex x 4 bites Performed By: #### 1 [id number] #### [facility] [address] [place] [address] PH Specimen 8 R Base Prostate Normal [facility] Comment on above: Order Comment: left base x 3 bites Left lateral mid x 3 bites Left apex x 4 bites Performed By: #### 1 [id number] #### [facility] [address] [place] [address] PH Specimen 9 R Mid Prostate Normal [facility] Comment on above: Order Comment: left base x 3 bites Left lateral mid x 3 bites Left apex x 4 bites Performed By: #### 1 [id number] #### [facility] [address] [place] [address] PH Type of Service Technical Only Normal [facility] Comment on above: Order Comment: left base x 3 bites Left lateral mid x 3 bites Left apex x 4 bites Performed By: #### 1 [id number] #### [facility] [address] [place] [address] Patient Educationon 01-02-20 Patient Education Oncology Transrectal [...] near your rectum, especially while sitting. ? Decorah-colored urine due to small amounts of blood in your urine. ? A burning feeling while urinating. ? Blood in your stool (feces) or bleeding from your rectum. ? Blood in your semen. Follow these instructions at home: Medicines ? Take nknv-szs-ruakwex and prescription medicines only as told by [...] provider. Document Revised: 05/10/2022 Document Reviewed: 05/10/2022 [employer] Patient Education ? 2022 Simple Admit. Transrectal Ultrasound-Guided Prostate Biopsy A transrectal ultrasound-guided [...] including vitamins, herbs, eye drops, creams, and mdzj-kyf-luzzpyl medicines. ? Any problems you or family [...] aspirin (more content not included)... Normal [facility] Urology Office/Clinic Noteon 01-02-2024 Urology Office/Clinic [...] of prostate cancer. S/p TRUS/bx 05/17/23 - Alfred score 6 (3+3) in 2 cores each [...] [facility] [address], [place] [phone] Additional Instructions: sched repeat TRUS/bx Patient Education [...] Father. I (more content not included)... Normal [facility] Comment on above: Result Comment: Elec tronically Signed By: Rufina VORA MD\.br\Date and Time Signed: 01/02/24 13:53 EST\.br\Electronically Co-Signed By: Vesta Cortes\.br\Date and Time Co-Signed: 01/02/24 13:52 EST Lab Reportson 12-01-2023 Lab Reports [id number] 0TIFF Normal [facility] Ambulatory Visit Summaryon 0 06-06-2023 Ambulatory Visit Summary MATEO STEARNS :1960 Visit Date:06/06/2023 Ambulatory Visit Instructions Your Diagnosis Prostate cancer Sebaceous cyst Tests Performed Urnls Dip Stick Auto w/o Microscopy POC 61368 Your Care Team Attending Physician - Rufina VORA MD Primary Care Physician - KATHIE SÁNCHEZ CNP This Is Your Medications List Contact prescribing physician if questions or concerns albuterol (Ventolin HFA 90 mcg/inh Aerosol-Adpt) aspirin benzonatate (Tessalon Perles) budesonide-formoterol (budesonide-formoterol 160 mcg-4.5 mcg/inh Inh Aer w/adapter) diltiazem [...] CHANDLER, Rufina Reina Where: [facility] [place] Normal [facility] Patient Educationon 06-06-20 23 Patient Education [...] under a microscope. This is called the Alfred score and the total score can range from 6?10, indicating how likely it is that the cancer will spread (metastasize) to other parts of the body. The higher the score, the greater the likelihood that the cancer will spread. ? Alfred 6 or lower: This indicates that the cancer cells look similar to normal prostate cells (well differentiated). ? Alfred 7: This indicates that the cancer cells [...] external be (more content not included)... Normal [facility] Urology Office/Clinic Noteon 06-06-2023 Urology [...] 04/08/23 - 4.46 S/p TRUS/bx 05/17/23 - Alfred score 6 (3+3) in 2 cores each [...] [facility] [address], [place] [phone] Additional Instructions: PSA and ANNE-MARIE Patient Education [...] Cigarettes, 02/07/2023 (more content not included)... Normal [facility] Comment on above: [...] men. Performed By: #### H ISTGAL #### [facility] [address] [place] [address] Dr. James Crowley Prostate specific Ag [Mass/Vol] 3.4 ng/mL Normal 0.0-4.0 [facility] Comment on above: Result Comment: Rosa Elena khan ECLIA methodology. . According to the [place] [employer], Serum PSA should decrease and [...] disease. Performed By: #### H ISTGAL #### [facility] [address] [place] [address] Dr. James Crowley PSA, Free 0.41 ng/mL Normal N/A [facility] Comment on above: Result Comment: Rosa Elena khan ECLIA methodology. Performed By: #### H ISTGAL #### [facility] [address] [place] [address] Dr. James Crowley CBC AUTO DIFFon 04-08-2023 BASO # 0.1 103/ul Normal 0.0-0.1 [facility] Comment on above: Performed By: #### C BC #### [facility] [address] [place] [address] Dr. James Crowley Basophils/100 WBC (Bld) 0.5 % Normal 0.2-2.0 [facility] Comment on above: Performed By: #### C BC #### [facility] [address] [place] [address] Dr. James Crowley EO # 0.1 103/ul Normal 0.0-0.7 [facility] Comment on above: Performed By: #### C BC #### [facility] [address] [address] [address] James Crowley Eosinophils/100 WBC (Bld) 1.3 % Normal 0.9-7.0 [facility] Comment on above: Performed By: #### C BC #### [facility] [address] [place] [address] Dr. James Crowley Erythrocyte distribution width (RBC) [Ratio] 13.5 % Normal 11.0-15.0 [facility] Comment on above: Performed By: #### C BC #### [facility] [address] [place] [address] Dr. James Crolwey Hematocrit (Bld) [Volume fraction] 48.4 % Normal 42.0-54.0 [facility] Comment on above: Performed By: #### C BC #### [facility] [address] [place] [address] Dr. James Crowley Hemoglobin (Bld) [Mass/Vol] 15.6 g/dL Normal 14.0-18.0 [facility] Comment on above: Performed By: #### C BC #### [facility] [address] [place] [address] Dr. James Crowley IG # 0.08 10e3/ul Critically high 0.00-0.03 [facility] Comment on above: Performed By: #### C BC #### [facility] [address] [place] [address] Dr. James Crowley IG % 0.8 % Critically high 0.0-0.5 [facility] Comment on above: Performed By: #### C BC #### [facility] [address] [place] [address] Dr. James Crowley LYMPH # 3.1 103/ul Normal 1.2-3.8 [facility] Comment on above: Performed By: #### C BC #### [facility] [address] [place] [address] Dr. James Crowley Lymphocytes/100 WBC (Bld) 29.8 % Normal 20.5-60.0 [facility] Comment on above: Performed By: #### C BC #### [facility] [address] [place] [address] Dr. James Crowley MANUAL DIFF REQ NO Normal [facility] Comment on above: Performed By: #### C BC #### [facility] [address] [place] [address] Dr. James Crowley MCH (RBC) [Entitic mass] 29.3 pg Normal 25.9-34.0 [facility] Comment on above: Performed By: #### C BC #### [facility] [address] [place] [address] Dr. James Crowley MCHC (RBC) [Mass/Vol] 32.2 g/dL Normal 29.9-35.2 [facility] Comment on above: Performed By: #### C BC #### [facility] [address] [place] [address] Dr. James Crowley MCV (RBC) [Entitic vol] 90.8 fL Normal 80.0-94.0 [facility] Comment on above: Performed By: #### C BC #### [facility] [address] [place] [address] Dr. James Crowley MONO # 0.6 103/ul Normal 0.3-0.8 [facility] Comment on above: Performed By: #### C BC #### [facility] [address] [place] [address] Dr. James Crowley Monocytes/100 WBC (Bld) 5.9 % Normal 1.7-12.0 [facility] Comment on above: Performed By: #### C BC #### [facility] [address] [place] [address] Dr. James Crowley NEUT # 6.4 103/ul Normal 1.4-6.5 [facility] Comment on above: Performed By: #### C BC #### [facility] [address] [place] [address] Dr. James Crowley Neutrophils/100 WBC (Bld) 61.7 % Normal 43.0-75.0 [facility] Comment on above: Performed By: #### C BC #### [facility] [address] [place], [place] [address] Dr. James Crowley Platelet mean volume (Bld) [Entitic vol] 9.1 fL Critically low 9.5-13.5 [facility] Comment on above: Performed By: #### C BC #### [facility] [address] [address] [address] James Crowley PLT 320 103/ul Normal 150-450 [facility] Comment on above: Performed By: #### C BC #### [facility] [address] [address] [address] James Crowley RBC 5.33 106/ul Normal 4.70-6.10 [facility] Comment on above: Performed By: #### C BC #### [facility] [address] [address] [address] James Corwley WBC 10.4 103/ul Normal 4.0-11.0 [facility] Comment on above: Performed By: #### C BC #### [facility] [address] [place] [address] CHEST W CONon [...] 04-08-2023 CHOL-HDL RATIO NORM SEE BELOW Normal [facility] Comment on above: Result Comment: 3.3 - 4.4 LOW RISK 4.4 - 7.1 AVERAGE RISK 7.1 - 11.0 MODERATE RISK >11.0 HIGH RISK Performed By: #### U NEO, LIPID #### [facility] [address] [address] [address] James Crowley Cholesterol [Mass/Vol] 204 mg/dL Critically high <=200 [facility] Comment on above: Performed By: #### U NEO, LIPID #### [facility] [address] [address] [address] James Crowley Cholesterol in HDL [Mass/Vol] 55 mg/dL Normal 40-60 [facility] Comment on above: Performed By: #### U NEO, LIPID #### [facility] [address] [address] [address] James Crowley Cholesterol in LDL [Mass/Vol] 115.2 mg/dL Normal [facility] Comment on above: Performed By: #### U NEO, LIPID #### [facility] [address] [address] [address] James Crowley Cholesterol.total/C holesterol in HDL [Mass ratio] 3.7 {ratio} Normal [facility] Comment on above: Performed By: #### U NEO, LIPID #### [facility] [address] [address] [address] James Crowley HDL NORMAL > or = 60 mg/dl - LO W CARDIOVASCULAR RISK <40 mg/dl - HIGH CARDIOVASCULAR RISK Normal [facility] Comment on above: Performed By: #### U NEO, LIPID #### [facility] [address] [address] [address] James Crowley LDL CALC NORMAL SEE BELOW Normal [facility] Comment on above: Result Comment: <100 mg/dl OPTIMAL 100 - 129 mg/dl NEAR OR ABOVE OPTIMAL 130 - 159 mg/dl BORDERLINE HIGH 160 - 189 mg/dl HIGH >190 mg/dl VERY HIGH Performed By: #### U NEO, LIPID #### [facility] [address] [address] [address] James Crowley Triglyceride [Mass/Vol] 169 mg/dL Critically high <=150 [facility] Comment on above: Performed By: #### U NEO, LIPID #### [facility] [address] [address] [address] James Crowley VLDL CALC 33.8 mg/dL Normal [facility] Comment on above: Performed By: #### U NEO, LIPID #### [facility] [address] [address] [address] James Crowley PROF 14(COMP METB)on 023 Albumin [Mass/Vol] 3.7 g/dL Normal 3.4-5.0 [facility] Comment on above: Performed By: #### U NEO, LIPID #### [facility] [address] [address] [address] James Crowley Albumin/Globulin [Mass ratio] 0.9 {ratio} Normal [facility] Comment on above: Performed By: #### U NEO, LIPID #### [facility] [address] [address] [address] James Crowley ALP [Catalytic activity/Vol] 86 U/L Normal 46-116 [facility] Comment on above: Performed By: #### U NEO, LIPID #### [facility] [address] [address] [address] James Crowley ALT [Catalytic activity/Vol] 33 U/L Normal 16-63 [facility] Comment on above: Performed By: #### U NEO, LIPID #### [facility] [address] [address] [address] James Crowley Anion gap [Moles/Vol] 14.8 mmol/L Normal [facility] Comment on above: Performed By: #### U NEO, LIPID #### [facility] [address] [address] [address] James Crowley AST [Catalytic activity/Vol] 16 U/L Normal 15-37 [facility] Comment on above: Performed By: #### U NEO, LIPID #### [facility] [address] [address] [address] James Crowley Bilirubin [Mass/Vol] 0.7 mg/dL Normal 0.2-1.0 [facility] Comment on above: Performed By: #### U NEO, LIPID #### [facility] [address] [address] [address] James Crowley Calcium [Mass/Vol] 9.1 mg/dL Normal 8.5-10.1 [facility] Comment on above: Performed By: #### U NEO, LIPID #### [facility] [address] [address] [address] James Crowley Chloride [Moles/Vol] 107 mmol/L Normal 98-107 [facility] Comment on above: Performed By: #### U NEO, LIPID #### [facility] [address] [address] [address] James Crowley CO2 [Moles/Vol] 28.0 mmol/L Normal 21.0-32.0 [facility] Comment on above: Performed By: #### U NEO, LIPID #### [facility] [address] [address] [address] James Crowley Creatinine [Mass/Vol] 1.10 mg/dL Normal 0.70-1.30 [facility] Comment on above: Performed By: #### U NEO, LIPID #### [facility] [address] [place] [address] Dr. James Crowley EGFR-AF MARTINIQUAIS >60 Normal >=60 [facility] Comment on above: Performed By: #### U NEO, LIPID #### [facility] [address] [place] [address] Dr. James Crowley EGFR-NON AF MARTINIQUAIS >60 Normal >=60 [facility] Comment on above: Performed By: #### U NEO, LIPID #### [facility] [address] [address] [address] James Crowley Globulin (S) [Mass/Vol] 3.9 g/dL Normal [facility] Comment on above: Performed By: #### U NEO, LIPID #### [facility] [address] [address] [address] James Crowley Glucose [Mass/Vol] 98 mg/dL Normal 74-106 [facility] Comment on above: Performed By: #### U NEO, LIPID #### [facility] [address] [address] [address] James Crowley Potassium [Moles/Vol] 3.8 mmol/L Normal 3.5-5.1 [facility] Comment on above: Performed By: #### U NEO, LIPID #### [facility] [address] [place] [address] Dr. James Crowley Protein [Mass/Vol] 7.6 g/dL Normal 6.4-8.2 [facility] Comment on above: Performed By: #### U NEO, LIPID #### [facility] [address] [place] [address] Dr. James Crowley Sodium [Moles/Vol] 146 mmol/L Critically high 136-145 [facility] Comment on above: Performed By: #### U NEO, LIPID #### [facility] [address] [place] [address] Dr. James Crowley Urea nitrogen [Mass/Vol] 18.0 mg/dL Normal 7.0-18.0 [facility] Comment on above: Performed By: #### U NEO, LIPID #### [facility] [address] [place] [address] Dr. James Crowley Urea nitrogen/Creatinine [Mass ratio] 16.4 mg/mg Normal [facility] Comment on above: Performed By: #### U NEO, LIPID #### [facility] [address] [place] [address] Dr. James Crowley URIC ACID SERUMon 04-08-2023 Urate [Mass/Vol] 6.7 mg/dL Normal 3.5-7.2 [facility] Comment on above: Performed By: #### U NEO, LIPID #### [facility] [address] [address] [address] CHEST WO CONon [...] LEONOR MA Date: 2023-01-04 10:52 Normal [facility] CT CHEST WO CONon 10-07-2022 CT [...] AND CXon Acid Fast Culture Negative Normal [facility] Comment on above: Result Comment: No a tomi fast bacilli isolated after 6 weeks. Performed By: #### U NEO, LIPID #### [facility] [address] [address] [address] James Crowley Acid Fast Smear Negative [facility] Comment on above: Performed By: #### U NEO, LIPID #### [facility] [address] [address] [address] James Crowley [employer] Specimen Processing Concentration Normal [facility] Comment on above: Performed By: #### U NEO, LIPID #### [facility] [address] [address] [address] James Crowley FUNGAL AB QUANTITAIVE DOUBLE IMMUNODIFFUon 08-22-2022 Aspergillus flavus Negative Normal Neg:<1:1 [facility] Comment on above: Performed By: #### F UNGUYI #### [facility] [address] [address] [address] James Crowley Aspergillus fumigatus Negative Normal Neg:<1:1 [facility] Comment on above: Performed By: #### F UNGUYI #### [facility] [address] [place] [address] Dr. James Crowley Aspergillus niger Negative Normal Neg:<1:1 [facility] Comment on above: Performed By: #### F UNGUYI #### [facility] [address] [place] [address] Dr. James Crowley Blastomyces Negative Normal Neg:<1:1 [facility] Comment on above: Performed By: #### F UNGUYI #### [facility] [address] [place] [address] Dr. James Crowley COXSACKIE B VIRUS ANTIBODIES on 08-21-2022 [place] B-1 Ab Negative Normal Neg:<1:8 [facility] Comment on above: Performed By: #### C OXSBV #### [facility] [address] [place] [address] Dr. James Crowley Coxsackie B-2 Ab Negative Normal Neg:<1:8 [facility] Comment on above: Performed By: #### C OXSBV #### [facility] [address] [place] [address] Dr. James Crowley coxsackie B-3 Ab Negative Normal Neg:<1:8 [facility] Comment on above: Performed By: #### C OXSBV #### [facility] [address] [place] [address] Dr. James Crowley Coxsackie B-4 Ab Negative Normal Neg:<1:8 [facility] Comment on above: Performed By: #### C OXSBV #### [facility] [address] [place] [address] Dr. James Crowley Coxsackie B-5 Ab Negative Normal Neg:<1:8 [facility] Comment on above: Performed By: #### C OXSBV #### [facility] [address] [place] [address] Dr. James Crowley Coxsackie B-6 Ab Negative Normal Neg:<1:8 [facility] Comment on above: Performed By: #### C OXSBV #### [facility] [address] [place] [address] Dr. James Crowley HISTOPLASMA CAP AB QUANT DID on 08-21-2022 Histoplasma Mycelial CF Ab. Negative Normal Neg:<1:2 [facility] Comment on above: Performed By: #### H ISTGAL #### [facility] [address] [place] [address] Dr. James Cleaningoplasma Yeast CF Ab Negative Normal Neg:<1:2 [facility] Comment on above: Performed By: #### H ISTGAL #### [facility] [address] [place] [address] Dr. James Crowley COXSACKIE A VIRUS AB IGMon 0 08-20-2022 [place] A16 IgM Negative Normal Neg:<1:10 [facility] Comment on above: Performed By: #### C OXSIGM #### [facility] [address] [place] [address] Dr. James Crowley [place]ack[place] A24 IgM Negative Normal Neg:<1:10 [facility] Comment on above: Performed By: #### C OXSIGM #### [facility] [address] [place] [address] Dr. James Crowley [place]ack[place] A7 IgM Negative Normal Neg:<1:10 [facility] Comment on above: Performed By: #### C OXSIGM #### [facility] [address] [place] [address] Dr. James Crowley [place]sackie A9 IgM Negative Normal Neg:<1:10 [facility] Comment on above: Performed By: #### C OXSIGM #### [facility] [address] [place] [address] Dr. James Crowley HISTOPLASMA GALACTOMANNAN AG URINEon 08-20-2022 Histoplasma Gal'shwetha Ag <0.5 Normal <0.5 ng/mL [facility] Comment on above: Performed By: #### H ISTGAL #### [facility] [address] [place] [address] Dr. James Crowley QUANTIFERON TB GOLD PLUSon 0 08-20-2022 QuantiFERON Criteria Comment Normal [facility] Comment on above: [...] test. Performed By: #### Q NTTB #### [facility] [address] [place] [address] Dr. James Crowley QuantiFERON Incubation Incubation performed. Normal [facility] Comment on above: Performed By: #### Q NTTB #### [facility] [address] [place] [address] Dr. James Crowley QuantiFERON Mitogen Value >10.00 Normal [facility] Comment on above: Performed By: #### Q NTTB #### [facility] [address] [place] [address] Dr. James Crowley QuantiFERON Nil Value 0.04 IU/mL Normal [facility] Comment on above: Performed By: #### Q NTTB #### [facility] [address] [place] [address] Dr. James Crowley QuantiFERON TB1 Ag Value 0.04 IU/mL Normal [facility] Comment on above: Performed By: #### Q NTTB #### [facility] [address] [place] [address] Dr. James Crowley QuantiFERON TB2 Ag Value 0.05 IU/mL Normal [facility] Comment on above: Performed By: #### Q NTTB #### [facility] [address] [place] [address] Dr. James Crowley QuantiFERON-TB Gold Plus Negative [...] methodology Performed By: #### Q NTTB #### [facility] [address] [place] [address] Dr. James Crowley CREATININEon 08-18-2022 Creatinine [Mass/Vol] 0.97 mg/dL Normal 0.70-1.30 [facility] Comment on above: Performed By: #### H ISTGAL #### [facility] [address] [place] [address] Dr. James Crowley EGFR-AF MARTINIQUAIS >60 Normal >=60 [facility] Comment on above: Performed By: #### H ISTGAL #### [facility] [address] [place] [address] Dr. James Crowley EGFR-NON AF MARTINIQUAIS >60 Normal >=60 [facility] Comment on above: Performed By: #### H ISTGAL #### [facility] [address] [place] [address] CHEST W CONon [...] LEONOR MA Date: 2022-08-18 10:27 Normal [facility] CULTURE SPUTUMon 08-18-2022 CULTURE SPUTUM Isolate 1 Haemophilus parainfluenzae Moderate growth of Normal [facility] Comment on above: Result Comment: Beta -Lactamase: Negative Performed By: #### H ISTGAL #### [facility] [address] [address] [address] James Crowley SPUTUM GRAM STAINon 08-18-20 22 COMMENTS Normal [facility] Comment on above: Performed By: #### H ISTGAL #### [facility] [address] [address] [address] James Crowley DIPHTHEROIDS Normal [facility] Comment on above: Performed By: #### H ISTGAL #### [facility] [address] [address] [address] James Crowley EPITHELIALS <25 Normal [facility] Comment on above: Performed By: #### H ISTGAL #### [facility] [address] [address] [address] James Crowley FUNGAL ELEMENTS Normal [facility] Comment on above: Performed By: #### H ISTGAL #### [facility] [address] [address] [address] James KAN NEG BACILLI Normal [facility] Comment on above: Performed By: #### H ISTGAL #### [facility] [address] [address] [address] James KAN NEG DIPPLOCOCCI FEW Normal [facility] Comment on above: Performed By: #### H ISTGAL #### [facility] [address] [place] [address] Dr. James KAN POS BACILLI Normal [facility] Comment on above: Performed By: #### H ISTGAL #### [facility] [address] [address] [address] Yilan Crowley GRAM POSITIVE COCCI FEW Normal [facility] Comment on above: Performed By: #### H ISTGAL #### [facility] [address] [address] [address] James Crowley WBC (Bld) [#/Vol] 10*3/uL Normal [facility] Comment on above: Performed By: #### H ISTGAL #### [facility] [address] [address] [address] James Crowley XR RIBS RT PA [...] [place] CISNEROS Date: 2022-08-12 13:02 Normal [facility] Covid-19 PCR (CVDTB)on SARS-CoV-2 (COVID-19) RNA SOURAV+probe Ql (Unsp spec) Not detected Normal NOT DETECTED [facility] Comment on above: Result Comment: When [...] for this test is supported by the Financial Services Officer of Health and Human Service's declaration that [...] longer be used). Performed By: #### C TB [address] [address] [address] James Rey 03-24-2021 L -- ---- Specimen: [id number] Received: 03/24/21 Status: BOSTON Dinah Num: [id number] Spec Type: Surgical Subm Dr: Bryan Quick MD Tissues: A Skin-Other than Cyst, tag, debridement or plastic repair (LT NASAL DORSUM) Procedures: HE Stain, Gross/Micro L4 ---- Patient Age/Sex Location Account Attending Physician ---- Mateo Stearns/Oj CÁRDENAS [id number] Bryan Quick MD ---- SPEC NUM: RECD: 03/24/21 STATUS: BOSTON MATHEWS NUM: [id number] FRANCISCA: 03/24/21 [facility] DR: Bryan Quick MD ENTERED: 03/24/21 [facility] DR: SPEC TYPE: Surgical DEPT: [...] microscopic findings support the above pathologic diagnosis. [id number] ---- ---- Specimen: Received: 03/24/21 Status: BOSTON Dinah Num: [id number] Spec Type: Surgical Subm Dr: Bryan Quick MD Tissues: A Skin-Other than Cyst, tag, debridement or plastic repair (LT NASAL DORSUM) Procedures: HE Stain, Gross/Micro L4 ---- Patient: Mateo Stearns [id number] (Continued) ---- Signed (signature on file) Cindy Garcia MD 03/25/21 1824 [facility] Vital Signs Date Time Vital Sign Value Performing Clinician Facility 05-30-2025 [id number] Body height 170.2 cm Sadie Piper MD Work Phone: [facility] 05-30-2025 10:19-0400 Body mass index (BMI) [Ratio] 20.36 kg/m2 Sadie Piper MD Work Phone: [facility] 05-30-2025 10:19-0400 Body weight 58.97 kg Sadie Piper MD Work Phone: [facility] 05-30-2025 10:19-0400 Diastolic blood pressure 70 mm[Hg] Sadie Piper MD Work Phone: [facility] 05-30-2025 10:19-0400 Heart rate 81 /min [facility] 05-30-2025 10:19-0400 Systolic blood pressure 141 mm[Hg] Sadie Piper MD Work Phone: [facility] 05-01-2025 13:41-0400 Heart rate 75 /min Sadie Piper MD Work Phone: [facility] 05-01-2025 13:41-0400 Respiratory rate 18 /min Sadie Piper MD Work Phone: [facility] 05-01-2025 13:41-0400 SaO2% (BldA) [Mass fraction] 95 % Sadie Piper MD Work Phone: [facility] 05-01-2025 11:15-0400 Body temperature 97.7 [degF] Sadie Piper MD Work Phone: [facility] 05-01-2025 11:15-0400 Diastolic blood pressure 82 mm[Hg] Sadie Piper MD Work Phone: [facility] 05-01-2025 11:15-0400 Systolic blood pressure 120 mm[Hg] Sadie Piper MD Work Phone: [facility] 05-01-2025 10:28-0400 Body height 170.2 cm Sadie Piper MD Work Phone: [facility] 05-01-2025 10:28-0400 Body mass index (BMI) [Ratio] 20.36 kg/m2 Sadie Piper MD Work Phone: [facility] 05-01-2025 10:28-0400 Body weight 58.97 kg Sadie Piper MD Work Phone: [facility] 04-30-2025 12:25-0400 Body temperature 98.6 [degF] Sadie Piper MD Work Phone: [facility] 04-30-2025 12:25-0400 SaO2% (BldA) [Mass fraction] 100.3 % Sadie Piper MD Work Phone: [facility] 03-07-2025 11:03-0400 Body height 170.2 cm Sadie Piper MD Work Phone: [facility] 03-07-2025 11:03-0400 Body mass index (BMI) [Ratio] 19.89 kg/m2 Sadie Piper MD Work Phone: [facility] 03-07-2025 11:03-0400 Body temperature 97.7 [degF] Sadie Piper MD Work Phone: [facility] 03-07-2025 11:03-0400 Body weight 57.61 kg Sadie Piper MD Work Phone: [facility] 03-07-2025 11:03-0400 Diastolic blood pressure 62 mm[Hg] Sadie Piper MD Work Phone: [facility] 03-07-2025 11:03-0400 Heart rate 80 /min Sadie Piper MD Work Phone: [facility] Comment on above: irregular 03-07-2025 11:03-0400 SaO2% (BldA) [Mass fraction] 97 % Sadie Piper MD Work Phone: [facility] 03-07-2025 11:03-0400 Systolic blood pressure 126 mm[Hg] Sadie Piper MD Work Phone: [facility] 12-12-2024 09:53-0500 Body mass index (BMI) [Ratio] 22.69 kg/m2 MEI Dent MD Work Phone: [facility] 12-12-2024 09:53-0500 Body temperature 98.71 [degF] MEI Dent MD Work Phone: [facility] 12-12-2024 09:53-0500 Body weight 65.7 kg MEI Dent MD Work Phone: [facility] 12-12-2024 09:53-0500 Diastolic blood pressure 88 mm[Hg] MEI Dent MD Work Phone: [facility] 12-12-2024 09:53-0500 Heart rate 81 /min MEI Dent MD Work Phone: [facility] 12-12-2024 09:53-0500 Respiratory rate 18 /min MEI Dent MD Work Phone: [facility] 12-12-2024 09:53-0500 SaO2% (BldA) [Mass fraction] 90 % MEI Dent MD Work Phone: [facility] 12-12-2024 09:53-0500 Systolic blood pressure 131 mm[Hg] MEI Dent MD Work Phone: [facility] 11-02-2024 10:33-0500 Body temperature 98.4 [degF] MEI Dent MD Work Phone: [facility] 11-02-2024 10:33-0500 Diastolic blood pressure 82 mm[Hg] MEI Dent MD Work Phone: [facility] 11-02-2024 10:33-0500 Heart rate 100 /min MEI Dent MD Work Phone: [facility] 11-02-2024 10:33-0500 Respiratory rate 18 /min MEI Dent MD Work Phone: [facility] 11-02-2024 10:33-0500 SaO2% (BldA) [Mass fraction] 97 % MEI Dent MD Work Phone: [facility] 11-02-2024 10:33-0500 Systolic blood pressure 118 mm[Hg] MEI Dent MD Work Phone: [facility] 10-29-2024 10:28-0500 Body mass index (BMI) [Ratio] 23.38 kg/m2 MEI Dent MD Work Phone: [facility] 10-29-2024 10:28-0500 Body temperature 97.9 [degF] MEI Dent MD Work Phone: [facility] 10-29-2024 10:28-0500 Body weight 67.7 kg MEI Dent MD Work Phone: [facility] 10-29-2024 10:28-0500 Diastolic blood pressure 84 mm[Hg] MEI Dent MD Work Phone: [facility] 10-29-2024 10:28-0500 Heart rate 81 /min MEI Dent MD Work Phone: [facility] 10-29-2024 10:28-0500 Respiratory rate 18 /min MEI Dent MD Work Phone: [facility] 10-29-2024 10:28-0500 SaO2% (BldA) [Mass fraction] 95 % MEI Dent MD Work Phone: [facility] 10-29-2024 10:28-0500 Systolic blood pressure 126 mm[Hg] MEI Dent MD Work Phone: [facility] 10-22-2024 10:26-0500 Body mass index (BMI) [Ratio] 23.34 kg/m2 MEI Dent MD Work Phone: [facility] 10-22-2024 10:26-0500 Body temperature 97.11 [degF] MEI Dent MD Work Phone: [facility] 10-22-2024 10:26-0500 Body weight 67.6 kg EMI Dent MD Work Phone: [facility] 10-22-2024 10:26-0500 Diastolic blood pressure 81 mm[Hg] MEI Dent MD Work Phone: [facility] 10-22-2024 10:26-0500 Heart rate 71 /min MEI Dent MD Work Phone: [facility] 10-22-2024 10:26-0500 Respiratory rate 18 /min MEI Dent MD Work Phone: [facility] 10-22-2024 10:26-0500 SaO2% (BldA) [Mass fraction] 91 % MEI Dent MD Work Phone: [facility] 10-22-2024 10:26-0500 Systolic blood pressure 127 mm[Hg] MEI Dent MD Work Phone: [facility] 10-16-2024 10:59-0500 Body height 175.3 cm Kathie Villaneuvaosvaldoz [employer] Work Phone: [facility] 10-16-2024 10:59-0500 Body mass index (BMI) [Ratio] 22.21 kg/m2 Kathie Aichholz [employer] Work Phone: [facility] 10-16-2024 10:59-0500 Body temperature 98.01 [degF] Kathie Richhholz [employer] Work Phone: [facility] 10-16-2024 10:59-0500 Body weight 68.22 kg Kathie Richhholz [employer] Work Phone: [facility] 10-16-2024 10:59-0500 Diastolic blood pressure 78 mm[Hg] Kathie Aichholz [employer] Work Phone: [facility] 10-16-2024 10:59-0500 Heart rate 78 /min Kathie Richhholz [employer] Work Phone: [facility] 10-16-2024 10:59-0500 Respiratory rate 20 /min Kathie Aichholz [employer] Work Phone: [facility] 10-16-2024 10:59-0500 SaO2% (BldA) [Mass fraction] 92 % Kathie Richhholz [employer] Work Phone: [facility] 10-16-2024 10:59-0500 Systolic blood pressure 110 mm[Hg] Kathie Richhholz [employer] Work Phone: [facility] 10-15-2024 10:45-0500 Body mass index (BMI) [Ratio] 23.45 kg/m2 MEI Dent MD Work Phone: [facility] 10-15-2024 10:45-0500 Body temperature 97.81 [degF] MEI Dent MD Work Phone: [facility] 10-15-2024 10:45-0500 Body weight 67.9 kg MEI Dent MD Work Phone: [facility] 10-15-2024 10:45-0500 Diastolic blood pressure 81 mm[Hg] MEI Dent MD Work Phone: [facility] 10-15-2024 10:45-0500 Heart rate 87 /min MEI Dent MD Work Phone: [facility] 10-15-2024 10:45-0500 Respiratory rate 16 /min MEI Dent MD Work Phone: [facility] 10-15-2024 10:45-0500 SaO2% (BldA) [Mass fraction] 95 % MEI Dent MD Work Phone: [facility] 10-15-2024 10:45-0500 Systolic blood pressure 121 mm[Hg] MEI Dent MD Work Phone: [facility] 10-08-2024 10:34-0500 Body mass index (BMI) [Ratio] 23.69 kg/m2 MEI Dent MD Work Phone: [facility] 10-08-2024 10:34-0500 Body temperature 96.69 [degF] MEI Dent MD Work Phone: [facility] 10-08-2024 10:34-0500 Body weight 68.6 kg MEI Dent MD Work Phone: [facility] 10-08-2024 10:34-0500 Diastolic blood pressure 76 mm[Hg] MEI Dent MD Work Phone: [facility] 10-08-2024 10:34-0500 Heart rate 103 /min MEI Dent MD Work Phone: [facility] 10-08-2024 10:34-0500 Respiratory rate 18 /min MEI Dent MD Work Phone: [facility] 10-08-2024 10:34-0500 SaO2% (BldA) [Mass fraction] 90 % MEI Dent MD Work Phone: [facility] 10-08-2024 10:34-0500 Systolic blood pressure 165 mm[Hg] MEI Dent MD Work Phone: [facility] 10-01-2024 10:42-0500 Body mass index (BMI) [Ratio] 23.34 kg/m2 MEI Dent MD Work Phone: [facility] 10-01-2024 10:42-0500 Body temperature 97.9 [degF] MEI Dent MD Work Phone: [facility] 10-01-2024 10:42-0500 Body weight 67.6 kg MEI Dent MD Work Phone: [facility] 10-01-2024 10:42-0500 Diastolic blood pressure 83 mm[Hg] MEI Dent MD Work Phone: [facility] 10-01-2024 10:42-0500 Heart rate 99 /min MEI Dent MD Work Phone: [facility] 10-01-2024 10:42-0500 Respiratory rate 18 /min MEI Dent MD Work Phone: [facility] 10-01-2024 10:42-0500 SaO2% (BldA) [Mass fraction] 87 % MEI Dent MD Work Phone: [facility] Comment on above: Wearing mask, Normal for him with mask o n 10-01-2024 10:42-0500 Systolic blood pressure 129 mm[Hg] MEI Dent MD Work Phone: [facility] 09-25-2024 14:15-0400 Body mass index (BMI) [Ratio] 23.17 kg/m2 MEI Dent MD Work Phone: [facility] 09-25-2024 14:15-0400 Body weight 67.1 kg MEI Dent MD Work Phone: [facility] 09-13-2024 10:27-0400 Body height 175.3 cm Kathie Sánchez NP Work Phone: [facility] 09-13-2024 10:27-0400 Body mass index (BMI) [Ratio] 21.8 kg/m2 Kathie Sánchez [employer] Work Phone: [facility] 09-13-2024 10:27-0400 Body temperature 98.4 [degF] Kathie Sánchez [employer] Work Phone: [facility] 09-13-2024 10:27-0400 Body weight 66.95 kg Kathie Sánchez [employer] Work Phone: [facility] 09-13-2024 10:27-0400 Heart rate 96 /min Kathie Minayamatias [employer] Work Phone: [facility] 09-13-2024 10:27-0400 Respiratory rate 10 /min Kathie Sánchez [employer] Work Phone: [facility] 09-13-2024 10:27-0400 SaO2% (BldA) [Mass fraction] 97 % Kathie Sánchez [employer] Work Phone: [facility] 09-11-2024 13:33-0400 Body mass index (BMI) [Ratio] 23.51 kg/m2 MEI Dent MD Work Phone: [facility] 09-11-2024 13:33-0400 Body temperature 97.81 [degF] MEI Dent MD Work Phone: [facility] 09-11-2024 13:33-0400 Body weight 68.1 kg MEI eDnt MD Work Phone: [facility] 09-11-2024 13:33-0400 Diastolic blood pressure 82 mm[Hg] MEI Dent MD Work Phone: [facility] 09-11-2024 13:33-0400 Heart rate 80 /min MEI Dent MD Work Phone: [facility] 09-11-2024 13:33-0400 Respiratory rate 18 /min MEI Dent MD Work Phone: [facility] 09-11-2024 13:33-0400 SaO2% (BldA) [Mass fraction] 94 % MEI Dent MD Work Phone: [facility] 09-11-2024 13:33-0400 Systolic blood pressure 146 mm[Hg] MEI Dent MD Work Phone: [facility] 07-12-2024 13:06-0400 Body mass index (BMI) [Ratio] 23.41 kg/m2 MEI Dent MD Work Phone: [facility] 07-12-2024 13:06-0400 Body temperature 98.1 [degF] MEI Dent MD Work Phone: [facility] [facility] 07-12-2024 13:06-0400 Body weight 67.8 kg MEI Dent MD Work Phone: [facility] 07-12-2024 13:06-0400 Diastolic blood pressure 83 mm[Hg] MEI Dent MD Work Phone: [facility] 07-12-2024 13:06-0400 Heart rate 95 /min MEI Dent MD Work Phone: [facility] 07-12-2024 13:06-0400 Respiratory rate 18 /min MEI Dent MD Work Phone: [facility] 07-12-2024 13:06-0400 SaO2% (BldA) [Mass fraction] 95 % MEI Dent MD Work Phone: [facility] 07-12-2024 13:06-0400 Systolic blood pressure 157 mm[Hg] MEI Dent MD Work Phone: [facility] 06-21-2024 13:13-0400 Body height 170.2 cm MEI Dent MD Work Phone: [facility] 06-21-2024 13:13-0400 Body mass index (BMI) [Ratio] 23.41 kg/m2 MEI Dent MD Work Phone: [facility] 06-21-2024 13:13-0400 Body temperature 97.5 [degF] MEI Dent MD Work Phone: [facility] 06-21-2024 13:13-0400 Body weight 67.8 kg MEI Dent MD Work Phone: [facility] 06-21-2024 13:13-0400 Diastolic blood pressure 75 mm[Hg] MEI Dent MD Work Phone: [facility] 06-21-2024 13:13-0400 Heart rate 86 /min MEI Dent MD Work Phone: [facility] 06-21-2024 13:13-0400 Respiratory rate 20 /min MEI Dent MD Work Phone: [facility] 06-21-2024 13:13-0400 SaO2% (BldA) [Mass fraction] 95 % MEI Dent MD Work Phone: [facility] 06-21-2024 13:13-0400 Systolic blood pressure 124 mm[Hg] MEI Dent MD Work Phone: [facility] 06-01-2024 13:13-0400 Body height 175.3 cm Amandeep Crisostomo MD Work Phone: [facility] 06-01-2024 13:13-0400 Body mass index (BMI) [Ratio] 22.14 kg/m2 Amandeep Crisostomo MD Work Phone: [facility] 06-01-2024 13:13-0400 Body weight 68 kg Amandeep Crisostomo MD Work Phone: [facility] 06-01-2024 13:13-0400 Diastolic blood pressure 81 mm[Hg] Amandeep Crisostomo MD Work Phone: [facility] 06-01-2024 13:13-0400 Heart rate 88 /min Amandeep Crisostomo MD Work Phone: [facility] 06-01-2024 13:13-0400 Systolic blood pressure 138 mm[Hg] Amandeep Crisostomo MD Work Phone: [facility] 05-21-2024 11:35-0400 Blood Pressure Location Rufina VORA [facility] 05-21-2024 11:35-0400 Body temperature 98.6 [degF] Rufina VORA [facility] 05-21-2024 11:35-0400 Diastolic blood pressure 84 mm[Hg] Rufina VORA [facility] 05-21-2024 11:35-0400 Heart rate 76 /min Rufina VORA [facility] 05-21-2024 11:35-0400 Respiratory rate 16 /min Rufina VORA [facility] 05-21-2024 11:35-0400 Systolic blood pressure 139 mm[Hg] Rufina VORA [facility] 06-06-2023 10:36-0400 Blood Pressure Location Rufina VORA [facility] 06-06-2023 10:36-0400 Diastolic blood pressure 76 mm[Hg] Rufina VORA [facility] 06-06-2023 10:36-0400 Heart rate 72 /min Rufina VORA [facility] 06-06-2023 10:36-0400 Respiratory rate 16 /min Rufina VORA [facility] 06-06-2023 10:36-0400 Systolic blood pressure 130 mm[Hg] Rufina VORA [facility] 02-07-2023 12:42-0400 Blood Pressure Location Rufinamichelle VORA [facility] 02-07-2023 12:42-0400 Diastolic blood pressure 77 mm[Hg] Rufina VORA [facility] 02-07-2023 12:42-0400 Heart rate 74 /min Rufina VORA [facility] 02-07-2023 12:42-0400 Systolic blood pressure 138 mm[Hg] Rufina VORA [facility] 05-17-2022 12:56-0400 Blood Pressure Location Rufinamichelle VORA [facility] 05-17-2022 12:56-0400 Diastolic blood pressure 87 mm[Hg] Rufinamichelle VORA [facility] 05-17-2022 12:56-0400 Heart rate 79 /min Rufinamichelle VORA [facility] 05-17-2022 12:56-0400 Respiratory rate 16 /min Rufinamichelle VORA [facility] 05-17-2022 12:56-0400 Systolic blood pressure 139 mm[Hg] Rufina VORA [facility] Encounters Encounter Date Encounter Type Care Provider Facility Start: 06-05-2025 End: 06-05-2025 Clinisync Result Encounter Generic External Data Provider [facility] External [facility] Unsolicited Start: 06-05-2025 End: 06-05-2025 Clinisync Result Encounter Generic External Data Provider [facility] External Department Unsolicited Start: 05-30-2025 End: 05-30-2025 ambulatory [facility] Start: 05-30-2025 End: 05-30-2025 Office outpatient visit 25 minutes Sadie Piper MD Work Phone: [facility] Comment on above: 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); Aneurysm of descending thoracic aorta without rupture Start: 05-27-2025 End: 05-27-2025 ambulatory [facility] Start: 05-08-2025 End: 05-08-2025 ambulatory [facility] Start: 05-02-2025 End: 05-02-2025 ambulatory [facility] Start: 04-30-2025 End: 05-01-2025 ambulatory [facility] Start: 04-30-2025 End: 05-01-2025 Evaluation and management of inpatient Sadie Piper MD Work Phone: [facility] Start: 04-17-2025 End: 04-17-2025 Evaluation and management of inpatient DIANA E [facility] Start: 04-16-2025 End: 04-17-2025 Admission to [facility] Phone Call Provider 4 [facility] Start: 04-11-2025 End: 04-11-2025 Telephone encounter Carol Meyers NP Work Phone: [facility] Start: 04-06-2025 Evaluation and manag ement of inpatient [facility] Start: 04-05-2025 Evaluation and manag ement of inpatient [facility] Start: 04-05-2025 ambulatory [facility] Start: 04-05-2025 End: 04-06-2025 Evaluation and management of inpatient [facility] Start: 04-04-2025 End: 04-04-2025 Clinisync Result Encounter Robin Epps MD Work Phone: [facility] External Department Unsolicited Start: 04-04-2025 End: 04-04-2025 Clinisync Result Encounter Robin Epps MD Work Phone: [facility] External [facility] Unsolicited Start: 04-03-2025 End: 04-03-2025 Orders Only [facility] Comment on above: 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) Start: 03-29-2025 End: 03-29-2025 Clinisync Result Encounter Generic External Data Provider [facility] External Department Unsolicited Start: 03-29-2025 End: 03-29-2025 Clinisync Result Encounter Generic External Data Provider [facility] External Department Unsolicited Start: 03-27-2025 End: 03-27-2025 Evaluation and management of inpatient [facility] Start: 03-26-2025 End: 03-27-2025 Admission to [facility] Phone Call Provider 3 [facility] Start: 03-15-2025 End: 03-15-2025 ambulatory [facility] Start: 03-15-2025 End: 03-15-2025 Encounter for preprocedural cardiovascular examination [facility] Start: 03-12-2025 ambulatory [facility] Start: 03-07-2025 End: 03-07-2025 Office outpatient new 45 minutes Sadie Piper MD Work Phone: [facility] Comment on above: 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) Start: 03-07-2025 End: 03-07-2025 ambulatory SADIE PIPER [facility] Start: 02-24-2025 End: 02-25-2025 Clinisync Result Encounter Generic External Data Provider [facility] External Department Unsolicited Start: 02-24-2025 End: 02-25-2025 Clinisync Result Encounter Generic External Data Provider [facility] External Department Unsolicited Start: 02-23-2025 End: 02-26-2025 Clinisync Result Encounter Generic External Data Provider [facility] External Department Unsolicited Start: 02-23-2025 End: 02-26-2025 Clinisync Result Encounter Generic External Data Provider [facility] External Department Unsolicited Start: 02-22-2025 End: 02-22-2025 Telephone encounter Kathie Princess SKIRT CLIPPER Work Phone: [facility] Comment on above: Nausea (Primary Dx) Start: 02-11-2025 End: 02-11-2025 Clinisync Result Encounter Generic External Data Provider [facility] External Department Unsolicited Start: 02-11-2025 End: 02-11-2025 Clinisync Result Encounter Generic External Data Provider [facility] External Department Unsolicited Start: 01-18-2025 End: 01-18-2025 ambulatory Rufina VORA Facility:[facility] Start: 01-18-2025 End: 01-18-2025 Patient encounter procedure Rufina VORA [facility] Start: 01-11-2025 End: 01-11-2025 ambulatory Rufina VORA Facility:[facility] Start: 01-11-2025 End: 01-11-2025 Patient encounter procedure Rufina VORA [facility] Start: 01-02-2025 End: 01-02-2025 Bamboo flowsheet Karen Valdovinos DO Work Phone: [facility] Start: 01-02-2025 End: 01-02-2025 Bamboo flowsheet Karen Valdovinos DO Work Phone: [facility] Start: 01-02-2025 End: 01-02-2025 ambulatory KAREN VALDOVINOS Not Available Start: 12-12-2024 End: 12-12-2024 ambulatory Severo DENT Facility:[facility] Start: 12-12-2024 End: 12-12-2024 Patient encounter procedure Severo Dent MD Work Phone: [facility] Comment on above: Malignant neoplasm o f prostate (HCC) (Primary Dx) Start: 12-05-2024 End: 12-05-2024 Clinisync Result Encounter Generic External Data Provider [facility] External Department Unsolicited Start: 12-05-2024 End: 12-05-2024 Clinisync Result Encounter Generic External Data Provider [facility] External Department Unsolicited Start: 11-26-2024 End: 11-26-2024 Social Work [facility] Start: 11-02-2024 End: 11-09-2024 Rad[facility] Oncology Note Severo Dent MD Work Phone: [facility] Comment on above: Completion Note Start: 11-02-2024 End: 11-09-2024 Patient encounter procedure Severo Dent MD Work Phone: [facility] Comment on above: Malignant neoplasm o f prostate (HCC) (Primary Dx) Start: 11-02-2024 End: 11-02-2024 ambulatory Severo DENT Facility:[facility] Start: 11-01-2024 End: 11-01-2024 ambulatory Severo DENT Facility:[facility] Start: 10-31-2024 End: 10-31-2024 ambulatory Severo DENT Facility:[facility] Start: 10-30-2024 End: 10-30-2024 ambulatory Severo DENT Facility:[facility] Start: 10-29-2024 End: 10-29-2024 Patient encounter procedure Severo Dent MD Work Phone: [facility] Comment on above: Malignant neoplasm o f prostate (HCC) (Primary Dx) Start: 10-29-2024 End: 10-29-2024 ambulatory Severo DENT Facility:[facility] Start: 10-26-2024 End: 10-26-2024 Social Work [facility] H[facility]/On[facility] Start: 10-24-2024 End: 10-24-2024 ambulatory Severo GOPAL ENGGÉNESIS Facility:[facility] Start: 10-23-2024 End: 10-23-2024 ambulatory Severo DENT Facility:[facility] Start: 10-22-2024 End: 10-22-2024 Patient encounter procedure Severo Dent MD Work Phone: Radiation Oncology Comment on above: Malignant neoplasm o f prostate (HCC) (Primary Dx) Start: 10-22-2024 End: 10-22-2024 ambulatory Severo PEREZLatosha Facility:[facility] Start: 10-21-2024 End: 10-21-2024 ambulatory Severo DENT Facility:[facility] Start: 10-19-2024 End: 10-19-2024 ambulatory [facility] Facility:[facility] Start: 10-18-2024 End: 10-18-2024 ambulatory [facility] Facility:[facility] Start: 10-17-2024 End: 10-17-2024 ambulatory Severo DENT Facility:[facility] Start: 10-16-2024 End: 10-16-2024 Bamboo flowsheet Kathie Sánchez NP Work Phone: [facility] Start: 10-16-2024 End: 10-16-2024 Bamboo flowsheet Kathie Sánchez SK[employer]PER Work Phone: [facility] Start: 10-16-2024 End: 10-16-2024 Office outpatient visit 15 minutes Kathie Sánchez NP Work Phone: [facility] Comment on above: DDD (degenerative di sc disease), cervical (Primary Dx); Atrial fibrillation (CMS/HCC); Gastro-esophageal reflux disease without esophagitis; Prostate cancer (CMS/HCC) Start: 10-16-2024 End: 10-16-2024 ambulatory Severo DENT Facility:[facility] Start: 10-15-2024 End: 10-15-2024 Patient encounter procedure Severo Dent MD Work Phone: Radiation Oncology Comment on above: Malignant neoplasm o f prostate (HCC) (Primary Dx) Start: 10-15-2024 End: 10-15-2024 ambulatory Severo GOPAL DENT Facility:[facility] Start: 10-12-2024 End: 10-12-2024 ambulatory Severo GOPAL DENT Facility:[facility] Start: 10-11-2024 End: 10-11-2024 Clinisync Result Encounter Generic External Data Provider [facility] External Department Unsolicited Start: 10-11-2024 End: 10-11-2024 Clinisync Result Encounter Generic External Data Provider [facility] External Department Unsolicited Start: 10-11-2024 End: 10-11-2024 Patient encounter procedure [facility] Work Phone: [facility] Comment on above: Malignant neoplasm o f prostate (HCC) Start: 10-11-2024 End: 10-11-2024 ambulatory Severo GOPAL DENT Facility:[facility] Start: 10-10-2024 End: 10-10-2024 ambulatory Severo GOPAL DENT Facility:[facility] Start: 10-09-2024 End: 10-09-2024 ambulatory Severo GOPAL DENT Facility:[facility] Start: 10-08-2024 End: 10-08-2024 Patient encounter procedure Severo Dent MD Work Phone: [facility] Comment on above: Malignant neoplasm o f prostate (HCC) (Primary Dx) Start: 10-08-2024 End: 10-08-2024 ambulatory Severo DENT Facility:[facility] Start: 10-05-2024 End: 10-05-2024 ambulatory Severo DENT Facility:[facility] Start: 10-04-2024 End: 10-05-2024 ambulatory KATHIE SÁNCHEZ Facility:[facility] Start: 10-04-2024 End: 10-04-2024 Patient encounter procedure [facility] [place] Work Phone: [facility] Comment on above: Malignant neoplasm o f prostate (HCC) Start: 10-04-2024 End: 10-04-2024 Clinisync Result Encounter Generic External Data Provider [facility] External Department Unsolicited Start: 10-04-2024 End: 10-04-2024 Clinisync Result Encounter Generic External Data Provider [facility] External Department Unsolicited Start: 10-03-2024 End: 10-03-2024 ambulatory Severo GOPAL CHRISLatosha Facility:[facility] Start: 10-02-2024 End: 10-02-2024 ambulatory Severo DENT Facility:[facility] Start: 10-01-2024 End: 10-01-2024 Patient encounter procedure Severo Dent MD Work Phone: [facility] Comment on above: Malignant neoplasm o f prostate (HCC) (Primary Dx) Start: 10-01-2024 End: 10-01-2024 ambulatory Severo GOPAL DENT Facility:[facility] Start: 09-28-2024 End: 09-28-2024 ambulatory Severo GOPAL ENGGÉNESIS Facility:[facility] Start: 09-27-2024 End: 09-27-2024 ambulatory Severo POTTSJESSA DENT Facility:[facility] Start: 09-26-2024 End: 09-26-2024 ambulatory Severo PEREZLatosha Facility:[facility] Start: 09-25-2024 End: 09-25-2024 Social Work [...] Start: 09-17-2024 End: 09-18-2024 ambulatory Severo DENT Facility:[facility] Start: 09-17-2024 End: 09-27-2024 Patient encounter procedure Severo Dent MD Work Phone: Radiation Oncology Comment on above: Malignant neoplasm o f prostate (HCC) (Primary Dx) Start: 09-14-2024 End: 09-14-2024 Telephone encounter G Gopal Dent MD Work Phone: Radiation Oncology Comment on above: Financial Questions Start: 09-13-2024 End: 09-13-2024 Bamboo flowsheet Kathie Princess [employer]PER Work Phone: [facility] Start: 09-13-2024 End: 09-13-2024 Bamboo flowsheet Kathie Princess [employer]PER Work Phone: [facility] Start: 09-13-2024 End: 09-13-2024 Office outpatient visit 15 minutes Kathie Sánchez [employer] Work Phone: [facility] Comment on [...] Start: 07-12-2024 End: 07-12-2024 ambulatory Severo DENT Facility:[facility] Start: 07-12-2024 End: 07-12-2024 Patient encounter procedure Severo Dent MD Work Phone: Radiation Oncology Comment on above: Malignant neoplasm o f prostate (HCC) (Primary Dx) Start: 06-21-2024 End: 06-21-2024 ambulatory RUFINA VORA Facility:[facility] Start: 06-21-2024 End: 06-21-2024 Patient encounter [...] Start: 05-21-2024 End: 05-21-2024 ambulatory Rufina VORA Facility: [facility] Start: 05-21-2024 End: 05-21-2024 Patient encounter procedure Rufina VORA [facility] Start: 05-01-2024 End: 05-01-2024 ambulatory Rufina VORA Facility:[facility] Start: 05-01-2024 End: 05-01-2024 Patient encounter procedure Rufina VORA [facility] Start: 02-28-2024 Patient encounter procedure Generic Provider [facility] Start: 02-28-2024 End: 02-28-2024 ambulatory KATHIE SÁNCHEZ Not Available Start: 01-05-2024 Clinisync Result Encounter Gen rayray External Data Provider [facility] External Department Unsolicited Start: 01-05-2024 Clinisync Result Encounter Gen rayray External Data Provider [facility] External Department Unsolicited Start: 01-02-2024 End: 01-02-2024 ambulatory Rufina VORA Facility:[facility] Start: 07-22-2023 ambulatory Rufina VORA Facili ty:[facility] Start: 06-06-2023 End: 06-06-2023 ambulatory Rufina VORA Facility:[facility] Start: 06-06-2023 End: 06-06-2023 Patient encounter procedure Rufina VORA [facility] Start: 05-17-2023 End: 05-17-2023 Patient encounter procedure Rufina VORA [facility] Start: 04-12-2023 End: 04-13-2023 ambulatory MANAGER TECH[employer]ICAL TRAINING KATHIE AICHHOLZ Facility:[facility] Start: 04-08-2023 End: 04-09-2023 ambulatory MANAGER TECHNICAL TRAINING KATHIE AICHHOLZ Facility:[facility] Start: 02-07-2023 End: 02-07-2023 Patient encounter procedure Rufina VORA [facility] Start: 01-04-2023 End: 01-05-2023 ambulatory MANAGER TECHN[employer] TRAINING KATHIE AICHHOLZ Facility:[facility] Start: 10-07-2022 End: 10-08-2022 ambulatory MANAGER TECHNICAL TRAINING KATHIE AICHHOLZ Facility:[facility] Start: 08-18-2022 End: 08-19-2022 ambulatory ROBERTO JOSELYN . Facility:[facility] Start: 08-12-2022 End: 08-12-[address] ELSA RAE . Facility:[facility] Start: 07-20-2022 End: 08-11-2022 Pre-admission assessment Rufina VORA [facility] Start: 05-17-2022 End: 06-16-2022 Pre-admission assessment Rufina VORA [facility] Start: 05-17-2022 End: 05-17-2022 Patient encounter procedure Rufina VORA [facility] Start: 05-03-2022 End: 05-03-2022 ambulatory ROBERTO ALVES . Facility: Start: 03-24-2021 End: 03-24-2021 Departed Referred Bryan Quick Work Phone: [facility] [place] Procedures Date Procedure Procedure Detail Performing Clinician Start: 06-05-2025 MHPT PSA, DIAGNOSTIC Ge neric External Data Provider Start: 05-01-2025 Basic metabolic pane l calcium total Malia Gil MD Work Phone: Start: 05-01-2025 Adult depression screening assessment Sadie Piper MD Work Phone: Start: 04-30-2025 REPEATED CORETTA Piper MD Work Phone: Start: 04-30-2025 Glucose quantitative blood xcpt reagent strip Malia Gil MD Work Phone: Start: 04-30-2025 Fluoroscopy up to 1 hour physician/qhp time Sadie Piper MD Work Phone: Start: 04-30-2025 Calcium ionized Sadie Piper MD Work Phone: Start: 04-30-2025 End: 04-30-2025 ENDOGRAFT BYPASS [employer] AORTA Sadie Piper MD Work Phone: Start: 04-30-2025 Antibody screen Sadie Piper MD Work Phone: Start: 04-30-2025 Antibody screen DIANA BUSH Comment on above: Performed By: #### T SC #### [facility] [address] [place] [address] VIR Start: 04-30-2025 Blood typing serolog ic abo Sadie Piper MD Work Phone: Start: 04-30-2025 REPEATED CORETTA Piper MD Work Phone: Start: 04-04-2025 ALL CBC WITH AUTO DIFF Robin Epps MD Work Phone: Start: 03-29-2025 CA ECHO DOPPLER COMPLETE Generic External Data Provider Start: 03-29-2025 NM AGATHA PERF SPECT RE ST STR Generic External Data Provider Start: 02-24-2025 Epithelial cells LM Ql (Urine sed) Generic External Data Provider Start: 02-24-2025 GRAM STAIN EVALUATION G eneric External Data Provider Start: 02-24-2025 Leukocytes [#/volume ] in Blood Generic External Data Provider Start: 02-24-2025 LOWER RESPIRATORY CULTURE Generic External Data Provider Start: 02-24-2025 RESULT 1 Generic Ex ternal Data Provider Start: 02-24-2025 RESULT 2 Generic Ex ternal Data Provider Start: 02-24-2025 RESULT 3 Generic Ex ternal Data Provider Start: 02-24-2025 RESULT 4 Generic Ex ternal Data Provider Start: 02-23-2025 Bacteria identified in Urine by Culture Generic External Data Provider Start: 02-11-2025 Radex hip unilateral with pelvis 2-3 views Generic External Data Provider Start: 01-02-2025 Oph bmtry prtl coher intrfrmtry io lens pwr juan Karen Valdovinos DO Work Phone: Start: 01-02-2025 [...] External Data Provider Start: 04-08-2023 PSA screening MANAGER TECHNICAL TRAINING KATHIE PRINCESS Comment on above: Performed By: #### P SAS #### [facility] [address] [place] [address] Dr. James Crowley Start: 10-19-2022 Colonoscopy Generic Pr ovider Start: 10-15-2020 Colonoscopy aSdie yang MD Work Phone: Colonoscopy Rufina VORA Procedure on foot Rufina LAKESHA LEON Repair of hip Rufina VORA Comment on above: Both hips Both hips Transrectal needle biopsy of prostate Rufina VORA Plan of Treatment Date Care Activity Detail Author Start: 10-19-2032 Screening for malign ant neoplasm of colon [facility] Start: 03-11-2031 DTaP,Tdap and Td Vaccines (2 - Td or Tdap) DTaP,Tdap and Td Vaccines (2 - Td or Tdap) [facility] Start: 03-11-2031 Urine microalbumin profile DTaP,Tdap,Td Vaccine (2 - Td or Tdap) [facility] Start: 10-15-2030 Screening for malign ant neoplasm of colon Colonoscopy [facility] Start: 12-05-2029 Prostate specific antigen measurement Prostate Cancer Screening Discussion [facility] Start: 09-07-2029 Prostate specific antigen measurement Prostate Cancer Screening Discussion [facility] Start: 05-27-2026 Tobacco Screening Tobacco Screening [facility] Start: 05-01-2026 Adult BMI Screening Adult BMI Screen ing [facility] Start: 05-01-2026 Depression Screening Depression Scre ening [facility] Start: 03-27-2026 Tobacco Screening Tobacco Screening [facility] Start: 03-07-2026 Adult BMI Screening Adult BMI Screen ing [facility] Start: 03-07-2026 Tobacco Screening Tobacco Screening [facility] Start: 07-29-2025 Influenza vaccination Influenza Vacc ine [facility] Start: 06-12-2025 End: 06-12-2025 ambulatory 06/12/2025 11:00 AM EDT Visit (SP) Office Hematology/Oncology [address] [place] [address] Cat Baker, LINE APPLIANCE ASSEMBLER.MANAGER TECHNICAL TRAINING [address] [place] [address] survivorship Hematology/Oncology Comment on above: survivorship Start: 06-12-2025 End: 06-12-2025 Patient encounter procedure 06/12/2025 10:30 AM EDT Office Visit Radiation Oncology [address] [place] [address] Severo Dent MD [address] [place] [address] 6 month Follow up Radiation Oncology Comment on above: 6 month Follow up Start: 06-11-2025 End: 09-10-2025 Prostate specific Ag [Mass/volume] in Serum or Plasma PROSTATE-SPECIFIC ANTIGEN DIAGNOSTIC Lab Routine Malignant neoplasm of prostate (HCC) Expected: 06/11/2025 (Approximate), Expires: 09/10/2025 [facility] Work Phone: Comment on above: Expected: 06/11/2025 (Approximate), Expires: 09/10/2025 Start: 05-30-2025 End: 05-30-2025 Patient encounter procedure 05/30/2025 10:00 AM EDT Office Visit [facility] [address] [place] [phone] Sadie Piper MD [address], [address] [address] [facility] Start: 05-27-2025 End: 05-27-2025 Patient encounter procedure 05/27/2025 11:30 AM EDT Appointment [facility] [address] [address] Sadie Piper MD [address], [address] [place] [address] [facility] Start: 05-09-2025 End: 05-09-2025 Patient encounter procedure [facility] Start: 05-06-2025 End: 05-06-2025 Patient encounter procedure 05/06/2025 11:30 AM EDT Appointment [facility] [address] [place] [address] Sadie Piper MD [address], [address] [place] [address] [facility] Start: 04-30-2025 End: 04-30-2025 Admission to same day surgery center 04/30/2025 11:30 AM EDT - 04/30/2025 2:15 PM EDT Surgery [address] [phone] Sadie Piper MD [address], [address] [place] [address] ENDOGRAFT BYPASS THORACIC AORTA [facility] Comment on above: ENDOGRAFT BYPASS THO RACIC AORTA Start: 04-30-2025 End: 04-30-2025 ENDOGRAFT BYPASS THORACIC AORTA ENDOGRAFT BYPASS THORACIC AORTA Penetrating atherosclerotic ulcer of aorta 04/30/2025 11:30 AM EDT [facility] Start: 04-30-2025 Subsequent hospital visit by physician 04/30/2025 11:30 AM EDT Hospital Encounter [facility] Surgery [address] [place] [phone] Sadie Piper MD [address], [address] [place] [address] [facility] Start: 04-09-2025 End: 04-09-2025 Admission to same day surgery center 04/09/2025 10:00 AM EDT - 04/09/2025 12:00 PM EDT Surgery [address] [place] [address] Sadie Piper MD [address], [facility] [address] [place] [address] ENDOGRAFT BYPASS THORACIC AORTA [facility] Comment on above: ENDOGRAFT BYPASS THO RACIC AORTA Start: 04-09-2025 End: 04-09-2025 ENDOGRAFT BYPASS THORACIC AORTA ENDOGRAFT BYPASS THORACIC AORTA Penetrating atherosclerotic ulcer of aorta 04/09/2025 10:00 AM EDT [facility] Start: 04-09-2025 Subsequent hospital visit by physician 04/09/2025 10:00 AM EDT Hospital Encounter [address] [place] [address] Sadie Piper MD [address], [address] [place] [address] [facility] Start: 04-03-2025 End: 04-03-2026 CT Chest WO and CT angiogram Coronary arteries W contrast IV CT angiogram chest Imaging Routine Penetrating atherosclerotic ulcer of aorta Expected: 04/03/2025, Expires: 04/03/2026 [facility] Comment on above: Expected: 04/03/2025 , Expires: 04/03/2026 Start: 04-03-2025 End: 04-03-2026 CTA Abdominal vessels and Pelvis vessels W contrast IV CT angiogram abdomen and pelvis Imaging Routine Penetrating atherosclerotic ulcer of aorta Expected: 04/03/2025, Expires: 04/03/2026 [facility] Work Phone: Comment on above: Expected: 04/03/2025 , Expires: 04/03/2026 Start: 03-22-2025 COVID-19 Vaccine ( season) COVID-19 Vaccine ( season) [facility] Start: 02-27-2025 Medicare Annual Wellness (AWV) Medicare Annual Wellness (AWV) [facility] Start: 02-27-2025 Pneumococcal Vaccine : 65+ Years (1 of 2 - PCV) Pneumococcal Vaccine: 65+ Years (1 of 2 - PCV) [facility] Comment on above: Postponed from 07/21 (Patient Refused) Start: 02-25-2025 End: 02-25-2025 Patient encounter procedure 02/25/2025 10:00 AM EDT Office Visit [facility] [address] [facility] [address] [place] [address] Ratna Craven, SKIRT CLIPPER [address] [place] [address] [facility] Start: 01-08-2025 End: 01-08-2025 Patient encounter procedure 01/08/2025 9:00 AM EST Office Visit [facility] [address] [place] [phone] Kathie Sánchez, SKIRT CLIPPER [address] [place] [phone] [facility] Start: 01-02-2025 End: 01-02-2025 Patient encounter procedure [facility] Comment on above: Arrived Start: 12-17-2024 End: 12-17-2024 Patient encounter procedure 12/17/2024 9:40 AM EST Office Visit [facility] [address] [place] [phone] Kathie Sánchez, SKIRT CLIPPER [address] [place] [address] [facility] Start: 12-12-2024 End: 12-12-2024 Patient encounter procedure 12/12/2024 10:00 AM EST Office Visit Radiation Oncology [address] [place] [address] Severo Dent MD [address] [facility] [place] [address] 3-4 week follow up Radiation Oncology Comment on above: 3-4 week follow up Start: 11-30-2024 End: 11-30-2024 Patient encounter procedure Radiation Oncology Comment on above: 3-4 week follow up Start: 11-28-2024 Advance Directive Discussion Advance Directive Discussion [facility] Start: 11-27-2024 End: 02-26-2025 Prostate specific Ag [Mass/volume] in Serum or Plasma PROSTATE-SPECIFIC ANTIGEN DIAGNOSTIC Lab Routine Malignant neoplasm of prostate (HCC) Expected: 11/27/2024, Expires: 02/26/2025 [facility] Work Phone: Comment on above: Expected: 11/27/2024 , Expires: 02/26/2025 Start: 11-23-2024 End: 11-23-2024 Patient encounter procedure 11/23/2024 10:00 AM EST Office Visit [facility] [address] [place] [address] [facility] Comment on above: labs Start: 11-02-2024 End: 11-02-2024 Patient encounter procedure 11/02/2024 10:15 AM EST Appointment Radiation Oncology [address] [place] [address] Prostate Radiation Oncology Comment on above: Prostate Start: 11-01-2024 End: 11-01-2024 Patient encounter procedure Radiation Oncology Comment on above: Prostate FINAL OTV Fx 26-28 Start: 10-31-2024 End: 10-31-2024 Patient encounter procedure 10/31/2024 10:15 AM EST Appointment Radiation Oncology [address] [place] [address] Prostate Radiation Oncology Comment on above: Prostate Start: 10-30-2024 End: 10-30-2024 Patient encounter procedure 10/30/2024 10:15 AM EST Appointment Radiation Oncology [address] [place] [address] Prostate Radiation Oncology Comment on above: Prostate Start: 10-29-2024 End: 10-29-2024 Patient encounter procedure Radiation Oncology Comment on above: Prostate Location: [facility] Start: 10-24-2024 End: 10-24-2024 Patient encounter procedure 10/24/2024 10:15 AM EST Appointment Radiation Oncology [address] [place] [address] Prostate Radiation Oncology Comment on above: Prostate Start: 10-23-2024 End: 10-23-2024 Patient encounter procedure 10/23/2024 10:15 AM EST Appointment Radiation Oncology [address] [place] [address] Prostate Radiation Oncology Comment on above: Prostate Start: 10-22-2024 End: 10-22-2024 Patient encounter procedure Radiation Oncology Comment on above: Prostate Location: [facility] Start: 10-21-2024 End: 10-21-2024 Patient encounter procedure 10/21/2024 10:15 AM EST Appointment Radiation Oncology [address] [place] [address] Prostate Radiation Oncology Comment on above: Prostate Start: 10-19-2024 End: 10-19-2024 Patient encounter procedure 10/19/2024 10:15 AM EST Appointment Radiation Oncology [address] [place] [address] Prostate Radiation Oncology Comment on above: Prostate Start: 10-18-2024 End: 10-18-2024 Patient encounter procedure 10/18/2024 10:15 AM EST Appointment Radiation Oncology [address] [place] [address] Prostate Radiation Oncology Comment on above: Prostate Start: 10-17-2024 End: 10-17-2024 Patient encounter procedure 10/17/2024 10:15 AM EST Appointment Radiation Oncology [address] [place] [address] Prostate Radiation Oncology Comment on above: Prostate [...] 10:15 AM EST Appointment Radiation Oncology [address] [facility] [address] Prostate Radiation Oncology Comment on above: Prostate Start: 10-11-2024 End: 01-10-2025 CBC W Auto Differential panel - Blood COMPLETE BLOOD COUNT AND DIFFERENTIAL Lab Routine Malignant neoplasm of prostate (HCC) Expected: 10/11/2024, Expires: 01/10/2025 [facility] Work Phone: Comment on above: Expected: 10/11/2024 , Expires: 01/10/2025 Start: 10-11-2024 End: 10-11-2024 Patient encounter procedure 10/11/2024 10:30 AM EST Appointment Radiation Oncology [address] [place] [address] Prostate Radiation Oncology Comment on above: Prostate Start: 10-10-2024 End: 10-10-2024 Patient encounter procedure 10/10/2024 10:30 AM EST Appointment Radiation Oncology [address] [facility] [place] [address] Prostate Radiation Oncology Comment on above: Prostate Start: 10-09-2024 End: 10-09-2024 Patient encounter procedure 10/09/2024 10:30 AM EST Appointment Radiation Oncology [address] [place] [address] Prostate Radiation Oncology Comment on above: Prostate Start: 10-08-2024 End: 10-08-2024 Patient encounter procedure Radiation Oncology Comment on above: Prostate Location: [facility] Start: 10-05-2024 End: 10-05-2024 Patient encounter procedure 10/05/2024 10:15 AM EST Appointment Radiation Oncology [address] [place] [address] Prostate Radiation Oncology Comment on above: Prostate Start: 10-04-2024 End: 10-04-2024 Patient encounter procedure 10/04/2024 2:15 PM EST Appointment Radiation Oncology [address] [place] [address] Prostate - appt in [place] before Radiation Oncology Comment on above: Prostate - appt in [place] before Start: 10-04-2024 End: 01-03-2025 CBC W Auto Differential panel - Blood COMPLETE BLOOD COUNT AND DIFFERENTIAL Lab Routine Malignant neoplasm of prostate (HCC) Expected: 10/04/2024, Expires: 01/03/2025 [facility] Work Phone: Comment on above: Expected: 10/04/2024 , Expires: 01/03/2025 Start: 10-04-2024 End: 10-04-2024 Patient encounter procedure 10/04/2024 10:15 AM EST Appointment Radiation Oncology [address] [place] [address] Prostate Radiation Oncology Comment on above: Prostate Start: 10-03-2024 End: 10-03-2024 Patient encounter procedure 10/03/2024 10:15 AM EST Appointment Radiation Oncology [address] [place] [address] Prostate Radiation Oncology Comment on above: Prostate Start: 10-02-2024 End: 10-02-2024 Patient encounter procedure 10/02/2024 10:15 AM EST Appointment Radiation Oncology [address] [place] [address] Prostate Radiation Oncology Comment on above: Prostate Start: 10-01-2024 End: 10-01-2024 Patient encounter procedure Radiation Oncology Comment on above: Prostate Location: [facility] Start: 09-28-2024 End: 09-28-2024 Patient encounter procedure 09/28/2024 2:45 PM EDT Appointment Radiation Oncology [address] [place] [address] Prostate Radiation Oncology Comment on above: Prostate Start: 09-27-2024 End: 09-27-2024 Patient encounter procedure 09/27/2024 2:45 PM EDT Appointment Radiation Oncology [address] [place] [address] Prostate Radiation Oncology Comment on above: Prostate Start: 09-26-2024 End: 09-26-2024 Patient encounter procedure 09/26/2024 11:30 AM EDT Appointment Radiation Oncology [address] [place] [address] Prostate Radiation Oncology Comment on above: Prostate Start: 09-25-2024 End: 09-25-2024 Patient encounter procedure Radiation Oncology Comment on above: [place] PROSTATE Prostate - would lik e 10:10:45 Start: 09-21-2024 End: 12-21-2024 Prostate specific Ag [Mass/volume] in Serum or Plasma PROSTATE-SPECIFIC ANTIGEN DIAGNOSTIC Lab Routine Malignant neoplasm of prostate (HCC) Expected: 09/21/2024, Expires: 12/21/2024 [facility] Work Phone: Comment on above: Expected: 09/21/2024 , Expires: 12/21/2024 Start: 09-18-2024 End: 09-18-2024 Patient encounter procedure 09/18/2024 9:00 AM EDT Office [place] [address] Financial Questions for upcoming treatments Financial Clearance [...] disease), cervical Expected: 09/13/2024 (Approximate), Expires: 09/13/2025 [facility] Work Phone: Comment on above: Expected: 09/13/2024 (Approximate), Expires: 09/13/2025 Start: 09-13-2024 End: 09-13-2024 Patient encounter procedure [facility] Comment on above: Other thrombophilia (CMS/HCC); Chronic respiratory failure with hypoxia (CMS/HCC); Abdominal aortic aneurysm, without rupture, unspecified (CMS/HCC); Thoracic aortic aneurysm, without rupture, unspecified (CMS/HCC); Atherosclerosis of aorta (CMS/HCC) Start: 09-11-2024 End: 09-11-2024 Patient encounter procedure 09/11/2024 1:45 PM EDT Office Visit Radiation Oncology [address] [place] [address] Severo Dent MD [address] [place] [address] [place] [address] 2 month rv Radiation Oncology Comment on above: 2 month rv Start: 07-29-2024 Covid-19 Vaccine () Covid-19 Vaccine () [facility] Start: 07-29-2024 Influenza vaccination Influenza Vacc ine (#1) [facility] Start: 07-12-2024 End: 07-12-2024 Patient encounter procedure 07/12/2024 1:15 PM EDT Office Visit Radiation Oncology [address] [place] [address] Severo Dent MD [address] [place] [address] [place] [address] 3 week rv-Decipher results Radiation Oncology Comment on above: 3 week rv-Decipher r esults Start: 06-01-2024 End: 08-31-2024 Prostate specific Ag [Mass/volume] in Serum or Plasma PROSTATE-SPECIFIC ANTIGEN DIAGNOSTIC Lab Routine Prostate cancer (HCC) Expected: 06/01/2024, Expires: 08/31/2024 [facility] Work Phone: Comment on above: Expected: 06/01/2024 , Expires: 08/31/2024 Start: 11-28-2023 Advance Directive Discussion Advance Directive Discussion [facility] Start: 11-28-2023 Behavioral Health Screening Behavioral Health Screening [facility] Start: 07-29-2023 Covid-19 Vaccine () Covid-19 Vaccine () [facility] Start: 07-29-2023 Influenza vaccination Influenza Vacc ine (#1) [facility] Start: 2023 Abdominal aortic aneurysm screening Abdominal Aortic Aneurysm (AAA) Screen [facility] Start: 2023 Fall Risk Screening Fall Risk Screen ing [facility] Start: 2023 Pneumococcal Vaccine : 65+ Years (1 - PCV) Pneumococcal Vaccine: 65+ Years (1 - PCV) [facility] Start: 2018 RSV Vaccine (1 - 1-d ose 60+ series) RSV Vaccine (1 - 1-dose 60+ series) [facility] Start: 2013 Prostate specific antigen measurement Prostate Cancer Screening Discussion [facility] Start: 2008 Screening for malign ant neoplasm of lung Lung Cancer Screening [facility] Start: 2003 Diabetes Screening Diabetes Screenin g [facility] Start: 2003 Screening for malign ant neoplasm of colon [facility] Start: 1993 Lipid panel Lipid Screening [facility] Start: 1988 Zoledronic acid therapy Alpha- 1 Antitrypsin Deficiency Screening [facility] Start: 1976 Adult BMI Screening Adult BMI Screen ing [facility] Start: 1976 Annual PCP Team Field Pipelines Supervisor sully Disease Visit Annual PCP Team Chronic Disease Visit [facility] Start: 1976 Anxiety Screening Anxiety Screening [facility] Start: 1976 Depression Screening Depression Scre [facility] Start: 1976 Hepatitis C screening [facility] Start: 1976 HIV screening HIV Screening [facility] Start: 1976 Spirometry Spirometry [facility] Start: 1970 Depression Screening Depression Scre ing [facility] Start: 1970 Tobacco Screening Tobacco Screening [facility] Start: 1964 Pneumococcal Vaccine : 65+ (1 of 2 - PCV) Pneumococcal Vaccine: 65+ (1 of 2 - PCV) [facility] Start: 1958 Abdominal aortic aneurysm screening Abdominal Aortic Aneurysm Screening [facility] Start: 1958 Medicare Annual Wellness (AWV) Medicare Annual Wellness (AWV) [facility] Start: 1958 Screening for malign ant neoplasm of colon [facility] Start: 1958 Screening for malign ant neoplasm of lung Lung Cancer Screening Shared Decision Making [facility] BLOOD CULTURE 1 BLOOD CULTURE 1 Lab Routine 01/05/2024 4:58 PM EST [facility] BLOOD CULTURE 2 BLOOD CULTURE 2 Lab Routine 01/05/2024 5:04 PM EST [facility] End: 04-03-2026 Creatinine includes GFR, serum Creatinine includes GFR, serum Lab Routine Penetrating atherosclerotic ulcer of aorta 1 Occurrences starting 04/03/2025 until 04/03/2026 [facility] Comment on above: 1 Occurrences starti ng 04/03/2025 until 04/03/2026 CT Guidance for radiation treatment of Unspecified body region CT SIM PLANNING RADIATION ONCOLOGY Radiology Routine Malignant neoplasm of prostate (HCC) Ordered: 09/17/2024 [facility] Work Phone: Comment on above: Ordered: 09/17/2024 LOWER RESPIRATORY CULTURE LOWER RESPIRATORY CULTURE Lab Routine 02/24/2025 9:10 AM EDT [facility] End: 06-01-2025 Prostate specific Ag [Mass/volume] in Serum or Plasma PROSTATE-SPECIFIC ANTIGEN DIAGNOSTIC Lab Routine Prostate cancer (HCC) Every 6 months for 3 Occurrences starting 06/01/2024 until 06/01/2025 [facility] Comment on above: Every 6 months for 3 Occurrences starting 06/01/2024 until 06/01/2025 Immunizations Immunization Date Immunization Notes Care Provider [facility] 03-20-2025 unknown vaccine or immune globulin Sadie Piper MD Work Phone: [facility] 09-21-2024 unknown vaccine or immune globulin Sadie Piper MD Work Phone: [facility] 08-17-2024 Pneumococcal Conjuga te PCV 20 Kathie Sánchez SKIRT CLIPPER Work Phone: [facility] 08-17-2024 RSV, recombinant, protein subunit RSVpreF, adjuvant reconstitu, 120mcg/0.5mL, PF (Arexvy) Kathie Sánchez SKIRT CLIPPER Work Phone: [facility] 08-17-2024 unknown vaccine or immune globulin Sadie Piper MD Work Phone: [facility] 09-17-2023 unknown vaccine or immune globulin Sadie Piper MD Work Phone: [facility] 09-17-2023 zoster vaccine recombinant Rufina VORA [facility] 07-04-2023 unknown vaccine or immune globulin Sadie Piper MD Work Phone: [facility] 07-04-2023 zoster vaccine recombinant Rufina VORA [facility] 09-25-2022 SARS-CoV-2 (COVID-19 ) [id number] Rufina VORA [facility] 09-25-2022 unknown vaccine or immune globulin Sadie Piper MD Work Phone: [facility] 05-26-2021 SARS-CoV-2 (COVID-19 ) mRNA BNT-162b2 vax Rufina VORA [facility] 05-26-2021 unknown vaccine or immune globulin Sadie Piper MD Work Phone: [facility] 05-05-2021 SARS-CoV-2 (COVID-19 ) mRNA BNT-162b2 vax Rufina VORA [facility] 05-05-2021 unknown vaccine or immune globulin Sadie Piper MD Work Phone: [facility] 03-11-2021 tetanus toxoid, redu liyah diphtheria toxoid, and acellular pertussis vaccine, adsorbed Rufina VORA [facility] 03-11-2021 unknown vaccine or immune globulin Sadie Piper MD Work Phone: [facility] Payers Date Payer Category Payer Medicare HMO ANTH MEDICARE Member Subscriber Plan / Payer (Effective 2023-Present) Name: Mateo Stearns Relation to Subscriber: Self Name: Mateo Stearns Payer ID: [id number] (NAIC) Group ID: [id number] Type: Not on file Address: [address] [place] [id number] 2023 Unknown ANTHEM BLUE CROS S AND BLUE SHIELD ANTHEM MEDICARE ADVANTAGE HMO [id number] 2023-Present [phone] [address] [place] [address] [id number] 2022 Medicare (Managed Care) CROW EDICARE ADVANTAGE [id number] 2020 Medicaid [id number]. [id number] 2020 Medicare [id number] [id number]. [id number] 2017 Medicaid [id number] 1959 Medicaid [id number] 1959 Medicare [id number] 1959 Unknown [id number] 1958 Unknown [id number] 2.16.840.1.990113.3.579.2. 593 1958 Unknown [id number] 2.16.840.1.954052.3.579.2. 593 1958 Unknown [id number] 2.16.840.1.497143.3.579.2. 593 1958 Unknown [id number] 2.16.840.1.449646.3.579.2. 593 1958 Unknown [id number] 2.16.840.1.226387.3.579.2. 593 1958 Unknown [id number] 2.16.840.1.565742.3.579.2. 593 1958 Unknown [id number] 2.16.840.1.841782.3.579.2. 593 1958 Unknown [id number] 2.16840.1.387513.3.579.2. 593 1958 Unknown [id number] 2.16840.1.446431.3.579.2. 727 1958 Unknown [id number] 2.16.840.1.614371.3.579.2. 727 1958 Unknown [id number] 2.16840.1.151212.3.579.2. 727 1958 Unknown [id number] 2.16.840.1.572662.3.579.2. 727 1958 Unknown [id number] 2.16.840.1.423459.3.579.2. 727 1958 Unknown [id number] 2.16.840.1.904528.3.579.2. 1259 1958 Unknown [id number] 2.16.840.1.376754.3.579.2. 1259 1958 Unknown [id number] 2.16.840.1.452347.3.579.2. 1259 1958 Unknown [id number] 2.16.840.1.123226.3.579.2. 1259 1958 Unknown [id number] 2.16.840.1.802714.3.579.2. 727 1958 Unknown [id number] 2.16.840.1.043184.3.579.2. 727 1958 Unknown [id number] 2.16.840.1.486814.3.579.2. 1286 1958 Unknown [id number] 2.16.840.1.225600.3.579.2. 1286 1958 Unknown [id number] 2.16.840.1.257459.3.579.2. 1286 1958 Unknown [id number] 2.16.840.1.402269.3.579.2. 1286 1958 Unknown [id number] 2.16.840.1.236220.3.579.2. 1286 1958 Unknown [id number] 2.16.840.1.053124.3.579.2. 1286 1958 Unknown [id number] 2.16.840.1.817290.3.579.2. 1286 1958 Unknown [id number] 2.16.840.1.456599.3.579.2. 1286 1958 Unknown [id number] 2.16.840.1.511592.3.579.2. 1286 1958 Unknown [id number] 2.16.840.1.802757.3.579.2. 1286 Self-pay Self Pay [id number] Social History Date Type Detail Facility [facility] Start: 1960 Sex Assigned At Male [facility] Start: 05-17-2022 End: 11-13-2023 Tobacco smoking status Ex-smoker (finding) [facility] Start: 11-13-2023 End: 02-28-2024 Sex Assigned At Male [facility] Tobacco smoking status Never [facility] Start: 11-28-1975 End: 11-28-2016 History of tobacco use Current smoker [facility] Start: 11-28-1975 End: 11-28-2016 History of tobacco use Cigarette Smoker [facility] [facility] Start: 11-13-2023 End: 02-28-2024 Cigarettes smoked current (pack per day) - Reported 2 [facility] Start: 11-13-2023 End: 05-30-2025 Alcohol intake Ex-drinker (finding) [facility] Start: 1960 Sex Assigned At Not on file N [facility] Start: 05-16-2013 Tobacco smoking stat us NVIS Smokes tobacco daily [facility] Start: 05-16-2013 End: 03-07-2025 Tobacco use and exposure Smokeless tobacco non-user [facility] Start: 05-16-2013 Alcohol intake Current drinke r of alcohol (finding) [facility] Start: 06-21-2024 Alcohol Comment quit [address] [place] [address] Within the last year , have you been afraid of your partner or ex-partner? No [facility] Do you belong to any clubs or organizations such as quaker groups, unions, fraternal or athletic groups, or [...] to buy more. Never true [facility] Start: 03-07-2025 End: 05-27-2025 Alcoholic beverage intake Current non-drinker of alcohol (finding) [facility] Start: 11-15-2017 Alcohol Comment quit drinking 2 years ago; august 2015 [facility] Start: 07-07-2017 Sex Male (finding) [facility] Medical Equipment Procedure Code Equipment Code Equipment Origin al Text Equipment Identifier Dates Cup Actb 50mm Pn cl Sect Pinn Sector W/Gription 50mm - Sn/A - [id number] Start: 11-15-2017 Stm Fem 160mm 14 Crl Amt Ti Koehler Corail Amt Collar Size 14 - Sn/A - [id number] Start: 11-15-2017 Ins Actb 50mm 32 mm +4mm Ntrl Altrx +4 Neut [id number] - Sn/A - [id number] Start: 11-15-2017 Hip Dep Pf Spcl Mtl Construct - [id number] Start: 11-15-2017 Elmntr Hl Drlc P ncl Hip Mrthn Jermyn Hole Ashley Positive Stop - Sn/A - [id number] Start: 11-15-2017 Hd Fem 32mm 32 + 5mm Std Articul/Brandon Ball 32 +5 Br - Sn/A - [id number] Start: 11-15-2017 Scr Hip Canc Cnn Gription 25mm Pinn Can Bone Screw [id number] - Sn/A - [id number] Start: 11-15-2017 Goals Date Patient Goal Desired Activity /State Personal health goal Personal health goal Comment on above: Formatting of this n ote might be different from the original. Evaluation of progress towards goal: safe transition back to [facility] for long-term care services. Functional Status Date Assessment Result Facility 05-01-2025 Total score [AUDIT-C] 0 05/01/20 25 10:30 AM Kaia Sanford, CARIDAD [facility] 05-01-2025 Humiliation, Afraid, Rape, and Kick questionnaire [HARK] [facility] 05-21-2024 Functional Status N/A [facility] 06-06-2023 Functional Status N/A [facility] 05-17-2023 Functional Status N/A [facility] 02-07-2023 Functional Status N/A [facility] 08-05-2022 N/A [facility] 06-11-2022 Functional Status N/A [facility] 05-17-2022 Functional Status N/A [facility] [employer] Work Phone: [facility] [employer] [facility] Clinical Notes 05-17-2022 to 05-30-2025 Assessment & Plan Note - Sadie Piper MD - 05/30/2025 10:35 AM EDTAssessment & Plan Note - Sadie Piper MD - 05/30/2025 10:35 AM EDTMkt Piper MD - 05/30/2025 10:00 AM EDT Note Date & Type Note Facility 05-30-2025 Evaluation + Plan note Associated Problem(s): Penetrating atherosclerotic ulcer of aorta We will try to do TEVAR using a different device. [facility] 05-30-2025 Miscellaneous Notes Associated Problem(s): Penetrating atherosclerotic ulcer of aorta We will try to do TEVAR using a different device. documented in this encounter [facility] 05-30-2025 History of Presen t illness Narrative Images from the original note were not included. To: CURT LOWRY MD HPI: Mateo Stearns is a 64 y.o. male with large [...] addressed however because of the complexities of the calcium in the anatomy some devices may not work. There was no way to confirm for sure before trying to get the device up in the right place. He understands. Procedure risks benefits and alternatives were explained.. Review of Systems: Review of Systems [...] nebulizer solution Inhale 3 mL (2.5 mg total) by [...] eyes every 12 (twelve) hours. Tear production diltiazem XR (DILACOR XR) 180 [...] mouth nightly Indications: insomnia associated with depression. clopidogreL (PLAVIX) 75 mg tablet [...] Acute and chronic respiratory failure with hypoxia ([facility]) Anemia Anxiety Arthritis Atrial fibrillation ([facility]) Chronic respiratory failure ([facility]) Cognitive communication deficit Colitis COPD (chronic obstructive pulmonary disease) ([facility]) Depression Dysphagia, oropharyngeal phase Emphysema of lung ([facility]) Fracture of unspecified part of neck of unspecified femur, subsequent encounter for closed fracture with routine healing Hypertension Insomnia disorder Muscle weakness Pneumonia Unspecified protein-calorie malnutrition Visual impairment glasses Past Surgical History: Past Surgical History: Procedure Laterality Date CARPAL TUNNEL RELEASE Left FOOT FUSION Right shattered heel JOINT REPLACEMENT right hip REPLACEMENT TOTAL JOINT HIP Left 11/15/2017 Performed by Jr Rene Rosenbaum DO at [facility] THORACIC ARTERIOGRAM WITH IVUS N/A 04/30/2025 Performed by Sadie Piper MD at [facility] Social and Family History: Social History [...] Strain: Low Risk (04/05/2025) Received from [facility] Overall Financial Resource Strain (CARDIA) Difficulty of Paying Living Expenses: Not very hard Food Insecurity: No Food Insecurity (05/01/2025) Hunger Screening Food Insecurity - Worry: Never True Food Insecurity - Inability: Never True Transportation Needs: No Transportation Needs (05/01/2025) PRAPARE - Transportation Lack of Transportation (Medical): No Lack of Transportation (Non-Medical): No Physical Activity: Inactive (02/28/2024) Received from [facility] Exercise Vital Sign Days of Exercise per Week: 0 days Minutes of Exercise per Session: 0 min Stress: No Stress Concern Present (02/28/2024) Received from [facility] - Occupational Stress Questionnaire Feeling of Stress : Only a little Social Connections: Moderately Isolated (02/28/2024) Received from [facility] Social Connection and Isolation Panel [NHANES] Frequency of Communication with Friends and Family: Three times a week Frequency of Social Gatherings with Friends and Family: Never Attends [employer] Services: Never Active Member of Clubs or [...] Wt 59 kg (130 lb) BMI 20.36 kg/m Body mass index is 20.36 kg/m . Physical Exam: Physical Exam Constitutional: Appearance: Normal [...] using a different device. Thoracic aortic aneurysm Mateo was seen today for tevar 04-09-25 testing done [place] angiogram chest Diagnoses and all orders for this visit: Penetrating atherosclerotic ulcer of aorta Aneurysm of descending thoracic aorta without rupture Sadie Piper MD, CELSO, RPVI, FSVS, FACS [facility] This note was created with the assistance of a speech recognition program. While intending to generate a timely document that accurately reflects the content of the visit, no guarantee can be provided that every grammatical or spelling mistake has been or will be identified or corrected. Thank you for your understanding. documented in this encounter [facility] 05-08-2025 Note [facility] Subjective Mateo Stearns is a 64 y.o. year old male patient being seen for S/P PTCA stent. Patient states he still has SOB, a lot of pain and due to the aneurysm surgery which was not done due to cartilage built up. Patient states he feels like that the AAA surgery caused him to feel like it was a big set back health sinha. Patient would like to know why he is still needing to take his diltiazem, patient states he was told it would be stopped. Patient Active Problem List Diagnosis Abdominal aortic aneurysm (AAA) without rupture Age-related nuclear cataract of both eyes Alcoholism (CMS/HCC) Anxiety disorder, unspecified Arthritis Atherosclerosis of aorta Carpal tunnel syndrome of right wrist Centrilobular emphysema (CMS/HCC) Chronic GERD Chronic respiratory failure with hypoxia (CMS/HCC) COPD (chronic obstructive pulmonary disease) (CMS/HCC) DDD (degenerative disc disease), cervical Gout, unspecified Imbalance Lobular atelectasis Lumbar radiculopathy Lung mass Marijuana smoker Mixed hyperlipidemia Neuropathy Other chronic pain Other thrombophilia Paroxysmal atrial fibrillation (CMS/HCC) Penetrating atherosclerotic 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 Prostate cancer (CMS/HCC) Encounter for subsequent annual wellness visit (AWV) in Medicare patient Scrotal cyst Sebaceous cyst Thoracic aortic aneurysm, without rupture, unspecified Tobacco abuse Cellulitis of left lower limb Difficulty walking Nausea Abnormal stress test Coronary artery disease Coronary artery disease (CAD) excluded Acute upper respiratory infection, unspecified Anemia, unspecified Cognitive communication deficit Depression, unspecified Dysphagia, oropharyngeal phase Essential (primary) hypertension Fall (on) (from) other stairs and steps, initial encounter Fracture of bone adjacent to prosthesis Fracture of unspecified part of neck of unspecified femur, subsequent encounter for closed fracture with routine healing Malnutrition Muscle weakness (generalized) Noninfective gastroenteritis and colitis, unspecified Pain in thoracic spine Pneumonia, unspecified organism Primary insomnia Family History Problem Relation Name Age of Onset Emphysema Father Accidental Sister Social History Tobacco Use Smoking status: Former Types: Cigarettes Smokeless tobacco: Never Substance Use Topics Alcohol use: Not Currently Comment: former Drug use: Never HPI Initial visit 03/15/2025: Mateo is seen as a new patient for preoperative evaluation for vascular surgery. He is a 64-year-old man with penetrating thoracic aortic ulcer. He is planned for endovascular repair by Dr. Sadie Piper at [facility] vascular. Prior medical history is significant for COPD, emphysema [Was admitted with pneumonia to the [facility] in December 2024] and atrial fibrillation. In addition he has a recent hip fracture being treated conservatively. he is currently maintained on oxygen therapy all the time for his COPD. He has constant shortness of breath with exertion. No significant lower extremity edema. He denies chest pain. Atrial fibrillation appears to be a remote history 8 years ago without any clear clinical evidence of recurrence. He is currently maintained on aspirin 81 mg daily and diltiazem. He has extensive ecchymosis and bruising in the upper extremities. Follow-up visit 05/08/2025: He is seen in follow-up. After last visit, His stress test showed evidence of ischemia. I discussed with Dr. Piper from vascular surgery and we decided to proceed with cardiac catheterization. On arrival to the procedure he was found to be in atrial fibrillation with rapid ventricular response. Cardiac catheterization showed severe stenosis in the LAD to which she underwent a drug-eluting stent and did well with the procedure. He was discharged on aspirin, clopidogrel, and Eliquis 2.5 mg twice daily. In addition he was given atorvastatin 40 mg daily and metoprolol succinate 50 mg daily. His Cardizem was discontinued. He reverted to sinus rhythm during that admission. Following that he was admitted at [facility] with Dr. Piper to undergo thoracic repair of penetrating thoracic aortic ulcer. Endovascular repair could not be performed. The procedure was aborted. Today he reports that he has no chest pain. He reports that his shortness of breath has worsened after the procedure by vascular surgery. During that procedure he was placed under general anesthesia and mechanical ventilation. He has no lower extremity edema. No bleeding issues. Review of Systems Respiratory: Positive for shortness of breath. Objective Visit Vitals BP 110/76 (BP Location: Left arm, Patient Position: Sitting) Pulse 91 Ht 1.753 m (5' 9 ) Wt 60.3 kg (133 lb) SpO2 93% BMI 19.64 kg/m??? Smoking Status Former BSA 1.71 m??? (more content not included)... [facility] 05-01-2025 Nurse Note Transport here to drive pt to nursing facility. Pt has his own w/c and all his belongings are packed up. PIV removed without issue. Report called in to receiving facility, all question answered. [facility] 05-01-2025 Nurse Note Transport here to drive pt to nursing facility. Pt has his own w/c and all his belongings are packed up. PIV removed without issue. Report called in to receiving facility, all question answered. Patient arrived to the unit at this time . Denies pain. Pt alert et oriented, able to make needs known. Oriented to room and unit. Bed in low position call light within reach. Assessment completed. Skin assessment completed. Pt currently on oxygen 2L/m which is also uses at [facility]. Elliott continue to monitor. documented in this encounter [facility] 05-01-2025 Progress note Formatting of t his note might be different from the original. DISCHARGE PLANNING NOTE W/c transport to [facility] via PTN, confirmed in zoll for 05/01 at 1430. [employer] 05-01-2025 Miscellaneous Notes DISCHARGE PLANNING NOTE W/c transport to [facility] via PTN, confirmed in zoll for 05/01 at 1430. Images from the original note were not included. Initial Discharge Planning Assessment Television Specialist met with patient at bedside, introduced self, explained role. Patient alert and oriented, able to participate in discharge conversation. Initial Assessment Flowsheet Row Most Recent Value Patient Information Initial Pre-Hospitalization Assessment Completed? Completed Primary Caregiver Self Support System Friends Discharge Planning Living Arrangements Private Residence, Alone Assistance Needed ADLs Care Facility Name [facility] No Type of Residence Private residence, Apartment Who is the existing DME Provider? Other [unknown] Stressors Income Information IP Hunger/Food Insecurity Screening Within the past 12 months we worried whether our food would run out before we got money to buy more. Never True Within the past 12 months the food we bought just didn't last and we didn't have money to get more. Never True Hunger Screening Complete? Yes Pt. Eligible for Food / Voucher No Caregiver/Family Member Caregiver/Support System Limitations Caregiver/Support Systems Limitations (Check All That Apply) No Caregiver Needed Patient/Caregiver Goals Patient/Caregiver Goals Alf Care Skilled [facility] Care Extended Care Facility (Wildlife Biologist) Community Provider Referral Community Provider Referral None Services Requested Patient expects to be discharged to: SNF Does the patient wish to have family/friend/caregiver involved in their discharge planning? No, the patient does not wish to have family/friend/caregiver involved in their discharge planning Discharge Disposition Skilled Return Skilled Return Name [facility] Skilled Return Skilled Return Who is the existing DME Provider? Other [unknown] Does the patient need discharge transportation arranged? Yes Transportation Arranged [facility] Mobility issues discussed with transportation provider Yes Patient choice offered Patient declined List Provided Patient declined Patient Declined Active with Provider DC Planning Complete Discharge Milestones Yes Prior to admission patient was at [facility] for rehab. He was unclear if he is there as a long-term care patient, as he stated he is out of skilled days and mentioned having to pay to be there. He states his goal is to return home to his 2nd floor apartment in [place], [place], but he has not been able to be independent with ADLs and mobility yet, so he remains at the facility. Medical equipment patient used prior to admission includes: walker, wheelchair, 2-3 L oxygen continuous (unsure of company). Patient denies need for transportation (he does not drive, relies on facility transportation)/ food (provided at facility)/ prescription medication assistance resources. CN discussed discharge resources with patient. He agrees to returning to [facility]; CN placed a return referral. Pt stated facility has transportation through the facility that will pick him up at discharge. PCP: DIANA BUSH MD PCP and pharmacy confirmed with patient. DIANA BUSH MD added to Follow Up Providers for Summary of Care communication. The patient lacks significant family support. Goals: Goals Patient Stated Safe Discharge (pt-stated) Evaluation of progress towards goal: safe transition back to [facility] for long-term care services. Will continue to follow as plan of care develops. Please feel free to reach out for any discharge planning questions. - Linda Bhat RN 05/01/25 11:45 AM Addendum: CRF and discharge orders reviewed. CRF sent to facility. CN tasked [facility] transport, waiting on confirmed time. Facility able to accept back today. - Linda Bhat RN 05/01/25 12:47 PM Addendum: [facility] transport time scheduled for 1430 back to [facility]. Bedside RN and facility notified. - Linda Bhat RN 05/01/25 1:07 PM Problem: Pain Goal: Patient goal is pain score less than 4, able to rest, and participant in treatment plan as appropriate Description: INTERVENTIONS: 1. Encourage patient or legal fraud representative to report early pain and ask for pain medicine when needed 2. Assess pain using appropriate pain scale and include the scale used when documenting 3. Administer analgesics based on type and severity of pain and evaluate response within appropriate time frame 4. Implement non-pharmacological measures as appropriate and evaluate response 5. Consider cultural and social influences on pain and pain management 6. Notify LIP if interventions ineffective or patient reports new pain 7. Monitor vital signs including pulse ox, end-tidal CO2 based on pain intervention 8. Reassess pain per policy 9. Teach patient or legal fraud representative interventions for comforting Outcome: Progressing Note: Evaluation of progress towards goal: Patient rates pain as tolerable this shift. Patient encouraged to report need for pain medications as needed. Patient assessed for pain using appropriate pain scale. Problem: Safety Goal: Patient will be injury free during hospitalization Description: INTERVENTIONS: 1. Assess patient's risk for falls and implement fall prevention plan of care per policy 2. Provide and maintain a safe environment 3. Proper use of double Identifiers 4. Medication administration using the 5 rights 5. Hand hygiene 6. Specimens are labeled at the bedside 7. Instruct patient/ patient fraud representative about use of safety devices 8. Include patient/ patient fraud representative in decisions related to safety Outcome: Progressing Note: Evaluation of progress towards goal: Safety maintained and call light within reach. No falls or injuries this shift. Bed rails up x2. Orientation reviewed. Hourly rounded maintained. Will continue to maintain safety until end of this shift Problem: Infection Goal: Absence of infection during hospitalization Description: INTERVENTIONS 1. Assess and monitor for signs and symptoms of infection. 2. Monitor lab/diagnostic results. 3. Monitor all insertion sites i.e., indwelling lines, tubes and drains. 4. Monitor endotracheal (as able) and nasal secretions for changes in amount and color. 5. Administer medications as ordered. 6. Instruct and encourage patient and family to use good hand hygiene technique. 7. Identify and instruct patient/patient fraud representative in use of appropriate isolation precautions for identified infection/symptoms. 8. Provide and discuss with patient/patient fraud representative on educational MDRO sheet. 9. Encourage and monitor nutritional status daily and consult vendor specialist if indicated. 10. Implement neutropenic guidelines as needed. Outcome: Progressing Note: Evaluation of progress towards goal: Patient evaluated for s/s of infection. Patient's vital signs, labs, and diagnostic results are being monitored each shift. Brief Post-op Note NAME: Mateo Stearns : 1960 PROCEDURE DATE: 04/30/2025 Surgeon: Surgeons and Role: * Sadie Piper MD - Primary Assistants: Staff: Internal Medicine Specialist Primary: Annia Aviles RN Director Weights And Measures: Darrin Decker Internal Medicine Specialist Relief: Lynn Rivas RN Scrub Relief: ST Jacques Scrub Person: ST Cedric Fellow: Malia Gil MD Customer Relationship Specialist Resident: Patsy Singh MD Pre-op Diagnosis: 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] Procedure Details: Procedure(s) with comments: THORACIC ARTERIOGRAM WITH IVUS - POSS SPINAL - Wound Class: Clean Anesthesia Type: General Post-Op Diagnosis Codes: * 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] Complications: Additions (Drains, Specimens, Implants): Estimated Blood Loss: 150 mL OB Surgical Procedure Blood Loss: Anesthesia EBL: * No values recorded between 04/30/2025 11:56 AM and 04/30/2025 1:58 PM * OB QBL: * No values recorded between 04/30/2025 11:56 AM and 04/30/2025 1:58 PM * Total IV Fluids: Intravenous fluids were administered Condition: Findings: Percutaneous access bilateral ALLOCATIONS CLERK Percutaneous closure of bilateral ALLOCATIONS CLERK with proglide closure device IVUS Aortogram Case aborted as unable to delivery TEVAR endograft pass the aortic arch despite multiple maneuvers Palp DP bilaterally Small hematoma in left groin Flat for 4 hours, until 1800, groin check prior to sitting up Neuro intact documented in this encounter [facility] 05-01-2025 Hospital course Narrative Images from the original note were not included. HOSPITAL DISCHARGE SUMMARY Patient ID: Mateo Stearns Acct: [id number] Patient's PCP: DIANA BUSH MD Admit Date: 04/30/2025 Discharge Date: Length of Stay: 1 Days Admitting Physician: Sadie Piper MD Discharge Physician: Sadie Piper MD Discharge Diagnoses: Patient Active Problem List Diagnosis Date Noted Thoracic aortic aneurysm 04/30/2025 Penetrating atherosclerotic ulcer of aorta 03/07/2025 Primary osteoarthritis of left hip 11/14/2017 Past Medical History: Diagnosis Date Abdominal aortic aneurysm (AAA) without rupture Acute and chronic respiratory failure with hypoxia ([facility]) Anemia Anxiety Arthritis Atrial fibrillation ([facility]) Chronic respiratory failure ([facility]) Cognitive communication deficit Colitis COPD (chronic obstructive pulmonary disease) ([facility]) Depression Dysphagia, oropharyngeal phase Emphysema of lung ([facility]) Fracture of unspecified part of neck of unspecified femur, subsequent encounter for closed fracture with routine healing Hypertension Insomnia disorder Muscle weakness Pneumonia Unspecified protein-calorie malnutrition Visual impairment glasses The patient was seen and examined on day of discharge and this discharge summary is in conjunction with any daily progress note from day of discharge. Code Status: Code Status Information Code Status Not on file Summary of Hospital Course: Mateo Stearns is a 64 y.o. male who presented to [facility] for attempted TEVAR procedure. Surgery was initially attempted on 04/30/2025 and it was unsuccessful due to not being able to pass endograft past aortic arch. Patient was sent to recovery and then back to his step-down room. He remains stable at this time. The above is only intended to summarize the hospital course. Please see complete medical record for further details. Consults: None Significant Diagnostic Studies: Fluoroscopy track vascular operative Result Date: 04/30/2025 Narrative: Please refer to the vascular OP note for a dictation on this exam. Cardiac catheterization Result Date: 04/05/2025 Narrative: PROCEDURE PHYSICIAN: Rene Fajardo MD . Indications: Mateo Stearns is a 64 y.o. male was evaluated [...] informed consent. he was brought to the medical laboratory specialist in a fasting state. The left wrist area was prepped and draped in usual fashion. Micropuncture technique was used for access in the left radial artery. A 6-Cuban x 11 cm sheath was placed. Verapamil was given through the sheath, and heparin was administered intravenously. The 6-Cuban JR4 catheter was navigated across the aortic valve over a wire and used to perform left heart catheterization with measurement of pressures. Pullback across the aortic valve was performed with measurement of pressures. Bilateral selective coronary angiography was then performed using 6-Cuban JL4 and JR4 diagnostic catheters. Catheters were removed. Heparin was administered intravenously and therapeutic ACT was confirmed during the rest of the procedure. A 6-Cuban XB 3.5 guiding catheter was advanced and used to engage the left coronary ostium. Baseline FAMILIA flow was 3. A [employer] coronary guide wire was advanced to the [...] mid LAD with inflations up to 12 Micheal. The balloon was retracted. Angiography was performed. A Synergy XD 3.0 x 48 mm drug-eluting stent was advanced and deployed at 8 Micheal across the stenosis. Angiography was performed and this showed patency of the diagonal branch. The Fielder wire was retracted from the diagonal branch. The stent balloon was then inflated at 11 micheal for nominal deployment of the stent. The stent was then postdilated using NC emerge 3.25 x 15 mm noncompliant balloon inflated up to 20 micheal throughout the length of the stented segment. [...] Eliquis therapy. Follow up in Cardiology Clinic. Rene Fajardo MD Study Details Abnormal stress test [R94.39], Preop cardiovascular exam [Z01.810] Treatments: As noted above Disposition: Discharge to home Discharge Condition: good. Discharge Instructions: Take all medications as prescribed, keep all follow-up appointments Follow Up: cheduled Outpatient Follow Up: Future Appointments Date Time Provider Department Center 05/27/2025 11:30 AM [facility] CT1 (450#) [facility] CT [facility] 05/30/2025 10:00 AM Sadie Piper MD [facility] Follow-up Information DIANA BUSH MD Follow up. Specialty: Family Medicine Contact information: [address] [facility] [address] Scheduled Appointments May 27, 2025 11:30 AM (Arrive by 11:00 AM) CT CTA/CTV combination with contrast with [facility] CT1 (450#) [facility] - [facility] Imaging ([facility]) [address] [facility] [id number] DIET: No food or drink 4 hours prior to exam. WHAT TO BRING: If your physician gave you the order, you must bring your order to the appointment. *PLEASE BRING YOUR INSURANCE CARD, PHOTO ID, COPAY, AND A LIST OF ALL MEDICATIONS TO YOUR APPOINTMENT. ADDITIONAL PREP: Please inform your physician if you are allergic to IV contrast or may be . ARRIVAL TIME: Arrive 30 minutes prior to your appointment. May 30, 2025 10:00 AM (Arrive by 9:45 AM) POST OPERATION VISIT with Sadie Piper MD [facility] ([facility]) [address] [place] [id number] At the time of your visit please be aware of the following COVID-19 information: If you develop a new cough, fever, or shortness of breath, please call before your appointment. Please plan to arrive at least 15 minutes earlier than your appointment time as screening and registration may take longer than anticipated. Completing eCheck-in to pre-register and pay any prepayments due will allow you to have an expedited arrival process for your visit. Please be aware that the [facility] facility you are visiting may require you to wear a mask. It will not be unusual if you find that masking is required in some locations and not required in other locations. The determination is made based on the amount of COVID transmission and infection rate in the community where the facility is located. Please be prepared to wear a mask if the facility you are visiting requires masking. Masks are available upon entry into the facility; however, it is best to bring your own mask and put it on before entering the facility. If wearing a mask is not possible due to an underlying health condition, please work with your care team on an alternate plan before your scheduled appointment. With primary care provider, DIANA BUSH MD, as needed Discharge Medications: Medication List START taking these medications Instructions Last Dose Given Next Dose Due atorvastatin 40 mg tablet Commonly known as: LIPITOR Take 1 tablet (40 mg total) by mouth before bedtime. Indications: excessive fat in the blood. CONTINUE taking these medications Instructions Last Dose Given Next Dose Due * albuterol 2.5 mg /3 mL (0.083 %) nebulizer solution Commonly known as: PROVENTIL,VENTOLIN Inhale 3 mL (2.5 mg total) by nebulization every 6 (six) hours as needed for wheezing Indications: chronic obstructive pulmonary disease. * albuterol 90 mcg/actuation inhaler Commonly known as: PROVENTIL HFA;VENTOLIN HFA Inhale 2 puffs every 6 (six) hours as needed for wheezing Indications: chronic obstructive pulmonary disease. aspirin 81 mg Take 1 tablet (81 mg total) by mouth in the morning. A fib. budesonide-formoteroL 160-4.5 mcg/actuation inhaler Commonly known as: SYMBICORT Inhale 2 puffs in the morning and 2 puffs before bedtime. Respiratory failure. busPIRone 10 mg tablet Commonly known as: BUSPAR Take 1 tablet (10 mg total) by mouth 3 (three) times a day Indications: repeated episodes of anxiety. calcium carbonate-vitamin D3 500 mg (1,250 mg) - 200 units per tablet Commonly known as: OSCAL 500 + D Take 1 tablet by mouth in the morning and 1 tablet in the evening. Take with meals. supplement. clopidogreL 75 mg tablet Commonly known as: PLAVIX Take 1 tablet (75 mg total) by mouth in the morning. afib. cycloSPORINE 0.05 % ophthalmic emulsion Commonly known as: RESTASIS Administer 1 drop to both eyes every 12 (twelve) hours. Tear production dilTIAZem XR 180 MG 24 hr capsule Commonly known as: DILACOR XR Take 1 capsule (180 mg total) by mouth in the morning. Indications: high blood pressure. ELIQUIS 2.5 mg tablet Generic drug: apixaban Take 1 tablet (2.5 mg total) by mouth in the morning and 1 tablet (2.5 mg total) before bedtime. afib. fluticasone propionate 50 mcg/actuation nasal spray Commonly known as: FLONASE Administer 1 spray into each nostril in the morning. Indications: inflammation of the nose due to an allergy. guaiFENesin 600 mg tablet extended release 12hr Commonly known as: MUCINEX Take 1 tablet (600 mg total) by mouth every 12 (twelve) hours. copd HYDROcodone-acetaminophen 5-325 mg per tablet Commonly known as: NORCO Take 1 tablet by mouth every 4 (four) hours as needed. ipratropium-albuteroL 0.5 mg-3 mg(2.5 mg base)/3 mL nebulizer Commonly known as: DUONEB Inhale 3 mL by nebulization 4 (four) times a day Indications: bronchi muscle spasm resulting from COPD. melatonin 5 mg tablet,chewable Chew 2 tablets and swallow nightly. sleep metoclopramide 10 mg tablet Commonly known as: REGLAN Take 1 tablet (10 mg total) by mouth in the morning and 1 tablet (10 mg total) at noon and 1 tablet (10 mg total) before bedtime. metoprolol succinate XL 50 mg 24 hr tablet Commonly known as: TOPROL XL Take 1 tablet (50 mg total) by mouth in the morning. Indications: high blood pressure. ondansetron 4 mg tablet Commonly known as: ZOFRAN Take 1 tablet (4 mg total) by mouth every 8 (eight) hours as needed for nausea or vomiting. nausea pantoprazole 40 mg EC tablet Commonly known as: PROTONIX Take 1 tablet (40 mg total) by mouth in the morning. Indications: gastroesophageal reflux disease. REMERON 15 mg tablet Generic drug: mirtazapine Take 2 tablets (30 mg total) by mouth nightly Indications: major depressive disorder. ROFLUMILAST ORAL Take 500 mcg by mouth in the morning. COPD. traZODone 50 mg tablet Commonly known as: DESYREL Take 1 tablet (50 mg total) by mouth nightly Indications: insomnia associated with depression. * This list has 2 medication(s) that are the same as other medications prescribed for you. Read the directions carefully, and ask your doctor or other care provider to review them with you. STOP taking these medications ibuprofen 800 mg tablet Commonly known as: MOTRIN ASK your doctor about these medications Instructions Last Dose Given Next Dose Due COLACE 100 mg capsule Generic drug: docusate sodium Take 1 capsule (100 mg total) by mouth in the morning and 1 capsule (100 mg total) before bedtime. Indications: constipation. oxyCODONE-acetaminophen 5-325 mg per tablet Commonly known as: PERCOCET Take 1 tablet by mouth every 4 (four) hours as needed for pain Indications: pain. Max Daily Amount: 6 tablets Discharge Activity Level: As tolerated Discharge Diet: Regular texture Physical Exam at Discharge Patient was seen and examined bedside. It was not appear to be in any acute distress or acute events overnight. His vital signs are stable and he has palpable pedal pulses. His surgical incisions are clean dry and intact without any signs of infection. Plan of care was discussed with him with Dr. Oj Fermin that he will return in 1 month to re-attempt intervention. Patient is in agreement with the plan of care. He has no further concerns or questions at this time. Time Spent on discharge is more than 30 minutes in the examination, evaluation, counseling and review of medications and discharge plan. [place] 05/01/25 1317 documented in this encounter [facility] 05-01-2025 Progress note Formatting of t his note is different from the original. Images from the original note were not included. Initial Discharge Planning Assessment Television Specialist met with patient at bedside, introduced self, explained role. Patient alert and oriented, able to participate in discharge conversation. Initial Assessment Flowsheet Row Most Recent Value Patient Information Initial Pre-Hospitalization Assessment Completed? Completed Primary Caregiver Self Support System Friends Discharge Planning Living Arrangements Private Residence, Alone Assistance Needed ADLs Care Facility Name [facility] No Type of Residence Private residence, Apartment Who is the existing DME Provider? Other [unknown] Stressors Income Information IP Hunger/Food Insecurity Screening Within the past 12 months we worried whether our food would run out before we got money to buy more. Never True Within the past 12 months the food we bought just didn't last and we didn't have money to get more. Never True Hunger Screening Complete? Yes Pt. Eligible for Food / Voucher No Caregiver/Family Member Caregiver/Support System Limitations Caregiver/Support Systems Limitations (Check All That Apply) No Caregiver Needed Patient/Caregiver Goals Patient/Caregiver Goals Alf Care [facility] Community Provider Referral Community Provider Referral None Services Requested Patient expects to be discharged to: SNF Does the patient wish to have family/friend/caregiver involved in their discharge planning? No, the patient does not wish to have family/friend/caregiver involved in their discharge planning Discharge Disposition Skilled Return Skilled Return Name [facility] Skilled Return Skilled Return Who is the existing DME Provider? Other [unknown] Does the patient need discharge transportation arranged? Yes Transportation Arranged [facility] Mobility issues discussed with transportation provider Yes Patient choice offered Patient declined List Provided Patient declined Patient Declined Active with Provider DC Planning Complete Discharge Milestones Yes Prior to admission patient was at [facility] for rehab. He was unclear if he is there as a long-term care patient, as he stated he is out of skilled days and mentioned having to pay to be there. He states his goal is to return home to his 2nd floor apartment in [place], [place], but he has not been able to be independent with ADLs and mobility yet, so he remains at the facility. Medical equipment patient used prior to admission includes: walker, wheelchair, 2-3 L oxygen continuous (unsure of company). Patient denies need for transportation (he does not drive, relies on facility transportation)/ food (provided at facility)/ prescription medication assistance resources. CN discussed discharge resources with patient. He agrees to returning to [facility]; CN placed a return referral. Pt stated facility has transportation through the facility that will pick him up at discharge. PCP: DIANA BUSH MD PCP and pharmacy confirmed with patient. DIANA BUSH MD added to Follow Up Providers for Summary of Care communication. The patient lacks significant family support. Goals: Goals Patient Stated Safe Discharge (pt-stated) Evaluation of progress towards goal: safe transition back to [facility] for long-term care services. Will continue to follow as plan of care develops. Please feel free to reach out for any discharge planning questions. - Linda Bhat RN 05/01/25 11:45 AM Addendum: CRF and discharge orders reviewed. CRF sent to facility. CN tasked ambulette transport, waiting on confirmed time. Facility able to accept back today. - Linda Bhat RN 05/01/25 12:47 PM Addendum: [facility] transport time scheduled for 1430 back to [facility]. Bedside RN and facility notified. - Linda Bhat RN 05/01/25 1:07 PM [facility] 05-01-2025 History of Presen t illness Narrative Images from the original note were not included. [facility] PROGRESS NOTE Subjective: He was seen at bedside this morning, no acute events overnight. He is POD1 s/p perc access bilateral ALLOCATIONS CLERK, IVUS, and aborted TEVAR due to inability to deliver endograft pass aortic arch despite multiple attempts. His bilateral groin sites are c/d/I and closed with skin glue. He denies any pain in the area. Vitals: Vitals: 05/01/25 0731 BP: 105/72 Pulse: 91 Resp: 18 Temp: 36.7 C (98 F) SpO2: 90% I/O last 3 completed shifts: In: 1580 [P.O.:330; I.V.:1250] Out: 1300 [Urine:1150; Blood:150] I/O this shift: In: - Out: 480 [Urine:480] Physical Exam: General: Awake, alert and oriented x3, in no acute distress HENT: Head atraumatic, normocephalic, external ears and nose are normal Neck: Supple, trachea midline Eyes: Conjunctivae clear, non-icteric, EOMI Pulmonary: Regular, non-labored respirations, without use of accessory muscles, no stridor Cardiac: Regular rate and rhythm, non-edematous x4 extremities Abdomen: Soft, non-tender, non-distended Musculoskeletal: Range of motion grossly normal x4 extremities, no deformity x4 extremities Neurological: CN 2-12 grossly intact, sensation grossly intact Skin: bilateral groin sites c/d/i Vascular: palpable DP/PT in BLE Labs: Lab Results Component Value Date WBC 8.1 05/01/2025 HGB 10.7 (L) 05/01/2025 HCT 31.5 (L) 05/01/2025 MCV 83 05/01/2025 PLT 218 05/01/2025 Lab Results Component Value Date SODIUM 138 05/01/2025 K 4.1 05/01/2025 CL 101 05/01/2025 CO2 29 05/01/2025 BUN 22 05/01/2025 CREATININE 0.66 05/01/2025 GLU 145 (H) 05/01/2025 CALCIUM 8.9 05/01/2025 Lab Results Component Value Date ALT 18 10/19/2017 AST 21 10/19/2017 ALKPHOS 97 10/19/2017 Lab Results Component Value Date INR 1.1 10/19/2017 INR 1.0 08/08/2017 PROTIME 12.4 10/19/2017 PROTIME 10.7 08/08/2017 Medications: aspirin, 81 mg, oral, Daily atorvastatin, 10 mg, oral, Nightly busPIRone, 10 mg, oral, TID clopidogreL, 75 mg, oral, Daily metoprolol succinate XL, 50 mg, oral, Daily pantoprazole, 40 mg, oral, Daily sodium chloride, 3 mL, intravenous, Q12H ANN traZODone, 50 mg, oral, Nightly lactated ringer's, 50 mL/hr, Last Rate: 50 mL/hr (04/30/252203) Assessment and Plan: Mateo Stearns is a 64 y.o. male is s/p aborted TEVAR due to inability to pass endograft passed aortic arch. Pain and nausea control prn Plan for discharge today and return in 1 month for re-intervention Micah Kowalski MD General Surgery Resident, PGY1 Cosigned by Huber Fermin MD at 05/01/2025 11:45 AM EDT Associated attestation - Huber Fermin MD - 05/01/2025 11:45 AM EDT Patient was seen on the rounds today with residents. Both groins patient sites are clean and both feet are well perfused. Situation discussed with patient regarding events from surgery yesterday and all questions were answered. He is ready to go home and we followed on outpatient basis in the clinic. Agree with above assessment and plan of care. documented in this encounter [facility] 04-30-2025 Plan of care note Problem: Pain Goal: Patient goal is pain score less than 4, able to rest, and participant in treatment plan as appropriate Description: INTERVENTIONS: 1. Encourage patient or legal fraud representative to report early pain and ask for pain medicine when needed 2. Assess pain using appropriate pain scale and include the scale used when documenting 3. Administer analgesics based on type and severity of pain and evaluate response within appropriate time frame 4. Implement non-pharmacological measures as appropriate and evaluate response 5. Consider cultural and social influences on pain and pain management 6. Notify LIP if interventions ineffective or patient reports new pain 7. Monitor vital signs including pulse ox, end-tidal CO2 based on pain intervention 8. Reassess pain per policy 9. Teach patient or legal fraud representative interventions for comforting Outcome: Progressing Note: Evaluation of progress towards goal: Patient rates pain as tolerable this shift. Patient encouraged to report need for pain medications as needed. Patient assessed for pain using appropriate pain scale. Problem: Safety Goal: Patient will be injury free during hospitalization Description: INTERVENTIONS: 1. Assess patient's risk for falls and implement fall prevention plan of care per policy 2. Provide and maintain a safe environment 3. Proper use of double Identifiers 4. Medication administration using the 5 rights 5. Hand hygiene 6. Specimens are labeled at the bedside 7. Instruct patient/ patient fraud representative about use of safety devices 8. Include patient/ patient fraud representative in decisions related to safety Outcome: Progressing Note: Evaluation of progress towards goal: Safety maintained and call light within reach. No falls or injuries this shift. Bed rails up x2. Orientation reviewed. Hourly rounded maintained. Will continue to maintain safety until end of this shift Problem: Infection Goal: Absence of infection during hospitalization Description: INTERVENTIONS 1. Assess and monitor for signs and symptoms of infection. 2. Monitor lab/diagnostic results. 3. Monitor all insertion sites i.e., indwelling lines, tubes and drains. 4. Monitor endotracheal (as able) and nasal secretions for changes in amount and color. 5. Administer medications as ordered. 6. Instruct and encourage patient and family to use good hand hygiene technique. 7. Identify and instruct patient/patient fraud representative in use of appropriate isolation precautions for identified infection/symptoms. 8. Provide and discuss with patient/patient fraud representative on educational MDRO sheet. 9. Encourage and monitor nutritional status daily and consult vendor specialist if indicated. 10. Implement neutropenic guidelines as needed. Outcome: Progressing Note: Evaluation of progress towards goal: Patient evaluated for s/s of infection. Patient's vital signs, labs, and diagnostic results are being monitored each shift. [facility] 04-30-2025 Nurse Note Patient arrived to the unit at this time . Denies pain. Pt alert et oriented, able to make needs known. Oriented to room and unit. Bed in low position call light within reach. Assessment completed. Skin assessment completed. Pt currently on oxygen 2L/m which is also uses at [facility]. Elliott continue to monitor. [facility] 04-30-2025 Procedure note Brief Post-op Note NAME: Mateo Stearns : 1960 PROCEDURE DATE: 04/30/2025 Surgeon: Surgeons and Role: * Sadie Piper MD - Primary Assistants: Staff: Internal Medicine Specialist Primary: Annia Aviles RN Director Weights And Measures: Darrin Decker Internal Medicine Specialist Relief: Lynn Rivas RN Scrub Relief: ST Jacques Scrub Person: ST Cedric Fellow: Malia Gil MD Customer Relationship Specialist Resident: Patsy Singh MD Pre-op Diagnosis: 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] Procedure Details: Procedure(s) with comments: THORACIC ARTERIOGRAM WITH IVUS - POSS SPINAL - Wound Class: Clean Anesthesia Type: General Post-Op Diagnosis Codes: * 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] Complications: Additions (Drains, Specimens, Implants): Estimated Blood Loss: 150 mL OB Surgical Procedure Blood Loss: Anesthesia EBL: * No values recorded between 04/30/2025 11:56 AM and 04/30/2025 1:58 PM * OB QBL: * No values recorded between 04/30/2025 11:56 AM and 04/30/2025 1:58 PM * Total IV Fluids: Intravenous fluids were administered Condition: Findings: Percutaneous access bilateral ALLOCATIONS CLERK Percutaneous closure of bilateral ALLOCATIONS CLERK with proglide closure device IVUS Aortogram Case aborted as unable to delivery TEVAR endograft pass the aortic arch despite multiple maneuvers Palp DP bilaterally Small hematoma in left groin Flat for 4 hours, until 1800, groin check prior to sitting up Neuro intact [employer] Work Phone: 04-30-2025 Attending History and physical note HISTORY AND PHYSICAL INTERVAL NOTE: Mateo Stearns 1960 [id number] H&P reviewed. The patient was examined and there are no changes to the H&P. Sadie Piper MD Source Note - Denis Angel MD - 04/05/2025 12:56 PM EDT Images from the original note were not included. Hospital Medicine History and Physical 04/05/2025 12:56 PM THE HOSPITALIST TEAM PREFERS TO USE [employer] CHAT FOR NON-URGENT COMMUNICATION 7AM-7PM. IF I DO NOT RESPOND WITHIN 20 MINUTES OR URGENT MATTERS, PLEASE CALL THROUGH THE SPEECH PATHOLOGIST ASSISTANT. FROM 7PM-7AM, PLEASE PAGE [phone](COVR). Chief Complaint No chief complaint on file. History of Present Illness Mateo Stearns is an 64 y.o. 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 from cardiac Bsw with the underwent left heart cath with a post procedure diagnosis of 290% stenosis in the proximal and mid LAD both treated by single Synergy XD drug-eluting stent moderate disease elsewhere normal left filling pressures and no evidence of aortic valve stenosis. Patient recently had preop evaluation done by cardiology, endovascular repair of aortic aneurysm. Patient had history of COPD peripheral vascular disease and history of complaint progressive shortness of breath/before that he had a stress test done which was positive for ischemic changes and so underwent left heart cath as above other underlying medical problem paroxysmal atrial fibrillation, history of abdominal aortic aneurysm without rupture chronic GERD which has been stable with proton pump inhibitor Review of System and Physical Exam Temp: [36.8 C (98.2 F)] 36.8 C (98.2 F) Heart Rate: [82-150] 82 Resp: [16-26] 19 BP: (103-177)/(59-81) 117/74 Physical Exam Vitals reviewed. Constitutional: Appearance: Normal appearance. HENT: Head: Normocephalic and atraumatic. Nose: Nose normal. Mouth/Throat: Mouth: Mucous membranes are moist. Pharynx: Oropharynx is clear. Eyes: Extraocular Movements: Extraocular movements intact. Pupils: [...] of motion. Cervical back: Normal range of motion and neck supple. Skin: General: Skin is warm and dry. Capillary Refill: Capillary refill takes 2 to 3 seconds. Neurological: Mental Status: He is alert. Mental status is at baseline. Psychiatric: Behavior: Behavior normal. Review of Systems Constitutional: Negative. HENT: Negative. Eyes: Negative. Respiratory: Negative. Cardiovascular: Negative. Gastrointestinal: Negative. Endocrine: Negative. Genitourinary: Negative. Musculoskeletal: Negative. Allergic/Immunologic: Negative. Neurological: Negative. Hematological: Negative. Psychiatric/Behavioral: Negative. Assessment and Plan Assessment & Plan Abnormal stress test Status post left heart cath with drug-eluting stents telemetry dual antiplatelet meds pain control follow-up with cardiology Coronary artery disease As above COPD (chronic obstructive pulmonary disease) ([facility]) Bronchodilators supplemental oxygen Paroxysmal atrial fibrillation ([facility]) Has history remote history of paroxysmal atrial fibrillation currently maintained on diltiazem and aspirin check to the vascular score appear to be 1 for age and 1 for vascular disease patient is not on oral anticoagulation extensive bruising and upcoming surgery will follow-up with billet recorder Thoracic aortic aneurysm, without rupture, unspecified For now keep blood pressure below 130/88 and heart rate below 88 follow-up with vascular surgery CODE STATUS full code VTE Prophylaxis: Will obtain CBC to check platelet and cell count and stable. Subcu heparin ----- Focus of this inpatient stay will remain on problems that need acute care setting for care. We will review available studies and will order additional labs, imaging and other studies as appropriate. As needed medicines are ordered as appropriate. VTE Prophylaxis will be ordered as appropriate. Please see above for management plan for individual hospital problems. Home medications are reviewed and will be continued as appropriate. Patient will be continued to be followed during this hospital stay by a member of [facility]. Past Medical History Past Medical History: Diagnosis Date Aneurysm Atrial fibrillation ([facility]) Cancer ([facility]) COPD (chronic obstructive pulmonary disease) ([facility]) Prostate cancer ([facility]) Past Surgical History Past Surgical History: Procedure Laterality Date TOTAL HIP ARTHROPLASTY Left TOTAL HIP ARTHROPLASTY Right Social History Social History Socioeconomic History Marital status: Spouse name: Not on file Number of children: Not on file Years of education: Not on file Highest education level: Not on file Occupational History Not on file Tobacco Use Smoking status: Former Types: Cigarettes Smokeless tobacco: Never Substance and Sexual Activity Alcohol use: Not Currently Comment: former Drug use: Never Sexual activity: Defer Other Topics Concern Not on file Social History Narrative Not on file Social Determinants of Health Financial Resource Strain: Low Risk (02/28/2024) Received from [facility] Overall Financial Resource Strain (CARDIA) Difficulty of Paying Living Expenses: Not very hard Food Insecurity: No Food Insecurity (03/07/2025) Received from [facility] Hunger Screening Within the past 12 months we worried whether our food would run out before we got money to buy more.: Never True Within the past 12 months the food we bought just didn't last and we didn't have money to get more.: Never True Transportation Needs: No Transportation Needs (02/28/2024) Received from [facility] PRAPARE - Transportation Lack of Transportation (Medical): No Lack of Transportation (Non-Medical): No Physical Activity: Inactive (02/28/2024) Received from [facility] Exercise Vital Sign Days of Exercise per Week: 0 days Minutes of Exercise per Session: 0 min Stress: No Stress Concern Present (02/28/2024) Received from [facility] [employer] Occupational Health - Occupational Stress Questionnaire Feeling of Stress : Only a little Social Connections: Moderately Isolated (02/28/2024) Received from [facility] Social Connection and Isolation Panel [NHANES] Frequency of Communication with Friends and Family: Three times a week Frequency of Social Gatherings with Friends and Family: Never Attends [employer] Services: Never Active Member of Clubs or Organizations: Yes Attends Club or Organization Meetings: Never Marital Status: Intimate Partner Violence: Not At Risk (02/28/2024) Received from [facility] Humiliation, Afraid, Rape, and Kick questionnaire Fear of Current or Ex-Partner: No Emotionally Abused: No Physically Abused: No Sexually Abused: No Housing Stability: Low Risk (02/28/2024) Received from [facility] Housing Stability Vital Sign Unable to Pay for Housing in the Last Year: No Number of Places Lived in the Last Year: 1 Unstable Housing in the Last Year: No Family History family history includes Accidental in his sister; Emphysema in his father. Allergies has No Known Allergies. Prior to Admission Medications Medications Prior to Admission Medication Sig Dispense Refill Last Dose albuterol 2.5 mg /3 mL (0.083 %) nebulizer solution 2.5 mg every 4 (four) hours if needed. 04/04/2025 budesonide-formoteroL (Symbicort) 160-4.5 mcg/actuation inhaler Inhale 2 puffs twice a day. 04/04/2025 pantoprazole (ProtoNix) 40 mg EC tablet Take 40 mg by mouth in the morning. 04/04/2025 Remeron 15 mg tablet Take 15 mg by mouth in the morning. 04/04/2025 roflumilast (Daliresp) 500 mcg tablet Take 500 mcg by mouth in the morning. 04/04/2025 calcium carbonate-vitamin D3 (Os-Juan 500 + D3) 500 mg-5 mcg (200 unit) tablet Take 1 tablet by mouth twice a day. Unknown guaiFENesin (Mucinex) 600 mg 12 hr tablet Take 1,200 mg by mouth two times daily. Not Taking HYDROcodone-acetaminophen (Marion) 5-325 mg tablet Take 1 tablet by mouth every 4 (four) hours if needed. Not Taking Labs Labs Reviewed CBC AND DIFFERENTIAL Narrative: The following orders were created for panel order CBC and differential. Procedure Abnormality Status --------- ------ CBC auto differential[[id number]] Please view results for these tests on the individual orders. COMPREHENSIVE METABOLIC PANEL MAGNESIUM CBC WITH AUTO DIFFERENTIAL Imaging ECG 12 lead Atrial fibrillation Abnormal ECG When compared with ECG of 05-APR-2025 08:54, Vent. rate has decreased BY 65 BPM Criteria for Anterior infarct are no longer Present ST no longer depressed in Inferior lead ST no longer depressed in Lateral T wave inversion no longer evident in Inferior lead T wave amplitude has decreased in Anterior leads Electrocardiogram, 12-lead Atrial fibrillation with rapid ventricular response with premature ventricular or aberrantly conducted complexes Anterior infarct , age undetermined ST & T wave abnormality, consider inferior ischemia Abnormal ECG When compared with ECG of 09-SEP-2015 13:25, Significant changes have occurred Confirmed by Maximiliano WADE, KAN Meza ([id number]) on 04/05/2025 9:37:46 AM Signed Denis Angel MD [facility] 04/05/2025 12:56 PM [facility] 04-30-2025 History and physical note HISTORY AND PHYSICAL INTERVAL NOTE: Mateo Stearns 1960 [id number] H&P reviewed. The patient was examined and there are no changes to the H&P. Sadie Piper MD Source Note - Denis Angel MD - 04/05/2025 12:56 PM EDT Images from the original note were not included. Hospital Medicine History and Physical 04/05/2025 12:56 PM THE HOSPITALIST TEAM PREFERS TO USE [employer] CHAT FOR NON-URGENT COMMUNICATION 7AM-7PM. IF I DO NOT RESPOND WITHIN 20 MINUTES OR URGENT MATTERS, PLEASE CALL THROUGH THE SPEECH PATHOLOGIST ASSISTANT. FROM 7PM-7AM, PLEASE PAGE [phone](COVR). Chief Complaint No chief complaint on file. History of Present Illness Mateo Stearns is an 64 y.o. 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 from cardiac Bsw with the underwent left heart cath with a post procedure diagnosis of 290% stenosis in the proximal and mid LAD both treated by single Synergy XD drug-eluting stent moderate disease elsewhere normal left filling pressures and no evidence of aortic valve stenosis. Patient recently had preop evaluation done by cardiology, endovascular repair of aortic aneurysm. Patient had history of COPD peripheral vascular disease and history of complaint progressive shortness of breath/before that he had a stress test done which was positive for ischemic changes and so underwent left heart cath as above other underlying medical problem paroxysmal atrial fibrillation, history of abdominal aortic aneurysm without rupture chronic GERD which has been stable with proton pump inhibitor Review of System and Physical Exam Temp: [36.8 C (98.2 F)] 36.8 C (98.2 F) Heart Rate: [82-150] 82 Resp: [16-26] 19 BP: (103-177)/(59-81) 117/74 Physical Exam Vitals reviewed. Constitutional: Appearance: Normal appearance. HENT: Head: Normocephalic and atraumatic. Nose: Nose normal. Mouth/Throat: Mouth: Mucous membranes are moist. Pharynx: Oropharynx is clear. Eyes: Extraocular Movements: Extraocular movements intact. Pupils: [...] of motion. Cervical back: Normal range of motion and neck supple. Skin: General: Skin is warm and dry. Capillary Refill: Capillary refill takes 2 to 3 seconds. Neurological: Mental Status: He is alert. Mental status is at baseline. Psychiatric: Behavior: Behavior normal. Review of Systems Constitutional: Negative. HENT: Negative. Eyes: Negative. Respiratory: Negative. Cardiovascular: Negative. Gastrointestinal: Negative. Endocrine: Negative. Genitourinary: Negative. Musculoskeletal: Negative. Allergic/Immunologic: Negative. Neurological: Negative. Hematological: Negative. Psychiatric/Behavioral: Negative. Assessment and Plan Assessment & Plan Abnormal stress test Status post left heart cath with drug-eluting stents telemetry dual antiplatelet meds pain control follow-up with cardiology Coronary artery disease As above COPD (chronic obstructive pulmonary disease) ([facility]) Bronchodilators supplemental oxygen Paroxysmal atrial fibrillation ([facility]) Has history remote history of paroxysmal atrial fibrillation currently maintained on diltiazem and aspirin check to the vascular score appear to be 1 for age and 1 for vascular disease patient is not on oral anticoagulation extensive bruising and upcoming surgery will follow-up with billet recorder Thoracic aortic aneurysm, without rupture, unspecified For now keep blood pressure below 130/88 and heart rate below 88 follow-up with vascular surgery CODE STATUS full code VTE Prophylaxis: Will obtain CBC to check platelet and cell count and stable. Subcu heparin ----- Focus of this inpatient stay will remain on problems that need acute care setting for care. We will review available studies and will order additional labs, imaging and other studies as appropriate. As needed medicines are ordered as appropriate. VTE Prophylaxis will be ordered as appropriate. Please see above for management plan for individual hospital problems. Home medications are reviewed and will be continued as appropriate. Patient will be continued to be followed during this hospital stay by a member of [facility]. Past Medical History Past Medical History: Diagnosis Date Aneurysm Atrial fibrillation ([facility]) Cancer ([facility]) COPD (chronic obstructive pulmonary disease) ([facility]) Prostate cancer ([facility]) Past Surgical History Past Surgical History: Procedure Laterality Date TOTAL HIP ARTHROPLASTY Left TOTAL HIP ARTHROPLASTY Right Social History Social History Socioeconomic History Marital status: Spouse name: Not on file Number of children: Not on file Years of education: Not on file Highest education level: Not on file Occupational History Not on file Tobacco Use Smoking status: Former Types: Cigarettes Smokeless tobacco: Never Substance and Sexual Activity Alcohol use: Not Currently Comment: former Drug use: Never Sexual activity: Defer Other Topics Concern Not on file Social History Narrative Not on file Social Determinants of Health Financial Resource Strain: Low Risk (02/28/2024) Received from [facility] Overall Financial Resource Strain (CARDIA) Difficulty of Paying Living Expenses: Not very hard Food Insecurity: No Food Insecurity (03/07/2025) Received from [facility] Hunger Screening Within the past 12 months we worried whether our food would run out before we got money to buy more.: Never True Within the past 12 months the food we bought just didn't last and we didn't have money to get more.: Never True Transportation Needs: No Transportation Needs (02/28/2024) Received from [facility] PRAPARE - Transportation Lack of Transportation (Medical): No Lack of Transportation (Non-Medical): No Physical Activity: Inactive (02/28/2024) Received from [facility] Exercise Vital Sign Days of Exercise per Week: 0 days Minutes of Exercise per Session: 0 min Stress: No Stress Concern Present (02/28/2024) Received from [facility] [employer] - Occupational Stress Questionnaire Feeling of Stress : Only a little Social Connections: Moderately Isolated (02/28/2024) Received from [facility] Social Connection and Isolation Panel [NHANES] Frequency of Communication with Friends and Family: Three times a week Frequency of Social Gatherings with Friends and Family: Never Attends [employer] Services: Never Active Member of Clubs or Organizations: Yes Attends Club or Organization Meetings: Never Marital Status: Intimate Partner Violence: Not At Risk (02/28/2024) Received from [facility] Humiliation, Afraid, Rape, and Kick questionnaire Fear of Current or Ex-Partner: No Emotionally Abused: No Physically Abused: No Sexually Abused: No Housing Stability: Low Risk (02/28/2024) Received from [facility] Housing Stability Vital Sign Unable to Pay for Housing in the Last Year: No Number of Places Lived in the Last Year: 1 Unstable Housing in the Last Year: No Family History family history includes Accidental in his sister; Emphysema in his father. Allergies has No Known Allergies. Prior to Admission Medications Medications Prior to Admission Medication Sig Dispense Refill Last Dose albuterol 2.5 mg /3 mL (0.083 %) nebulizer solution 2.5 mg every 4 (four) hours if needed. 04/04/2025 budesonide-formoteroL (Symbicort) 160-4.5 mcg/actuation inhaler Inhale 2 puffs twice a day. 04/04/2025 pantoprazole (ProtoNix) 40 mg EC tablet Take 40 mg by mouth in the morning. 04/04/2025 Remeron 15 mg tablet Take 15 mg by mouth in the morning. 04/04/2025 roflumilast (Daliresp) 500 mcg tablet Take 500 mcg by mouth in the morning. 04/04/2025 calcium carbonate-vitamin D3 (Os-Juan 500 + D3) 500 mg-5 mcg (200 unit) tablet Take 1 tablet by mouth twice a day. Unknown guaiFENesin (Mucinex) 600 mg 12 hr tablet Take 1,200 mg by mouth two times daily. Not Taking HYDROcodone-acetaminophen (Marion) 5-325 mg tablet Take 1 tablet by mouth every 4 (four) hours if needed. Not Taking Labs Labs Reviewed CBC AND DIFFERENTIAL Narrative: The following orders were created for panel order CBC and differential. Procedure Abnormality Status --------- ------ CBC auto differential[[id number]] Please view results for these tests on the individual orders. COMPREHENSIVE METABOLIC PANEL MAGNESIUM CBC WITH AUTO DIFFERENTIAL Imaging ECG 12 lead Atrial fibrillation Abnormal ECG When compared with ECG of 05-APR-2025 08:54, Vent. rate has decreased BY 65 BPM Criteria for Anterior infarct are no longer Present ST no longer depressed in Inferior lead ST no longer depressed in Lateral T wave inversion no longer evident in Inferior lead T wave amplitude has decreased in Anterior leads Electrocardiogram, 12-lead Atrial fibrillation with rapid ventricular response with premature ventricular or aberrantly conducted complexes Anterior infarct , age undetermined ST & T wave abnormality, consider inferior ischemia Abnormal ECG When compared with ECG of 09-SEP-2015 13:25, Significant changes have occurred Confirmed by Maximiliano WADE, KAN Meza ([id number]) on 04/05/2025 9:37:46 AM Signed Denis Angel MD [facility] 04/05/2025 12:56 PM HISTORY AND PHYSICAL INTERVAL NOTE: Mateo Stearns 1960 [id number] H&P reviewed. The patient was examined and there are no changes to the H&P. Sadie Piper MD Source Note - Huber Cardenas MD - 04/06/2025 10:58 AM EDT Images from the original note were not included. Attestation with edits by Evelin Renteria MD at 04/06/2025 11:04 PM I personally saw and examined the patient on the same date of service as resident/fellow Dr Cardenas. I discussed the findings and therapeutic plan with the resident/fellow Dr Cardenas. I agree with the documentation, except for any edits/updates below. Teaching Physician's Revisions: None Evelin Renteria MD, [facility] Cardiology Progress Note Subjective Subjective: Patient was seen and examined. Reported feeling well. No chest pain, or shortness of breath. No abdominal pain, nausea, or vomiting. No orthopnea or paroxysmal nocturnal dyspnea. No lower leg swelling. No acute events overnight. Objective Current Facility-Administered Medications: acetaminophen (Tylenol) tablet 650 mg, 650 mg, oral, q6h PRN, Meghna Zavaleta CNP, 650 mg at 04/05/25 2302 albuterol 2.5 mg /3 mL (0.083 %) nebulizer solution 2.5 mg, 2.5 mg, nebulization, q8h PRN, Denis Angel MD apixaban (Eliquis) tablet 2.5 mg, 2.5 mg, oral, BID, Huber Cardenas MD aspirin EC tablet 81 mg, 81 mg, oral, Daily, Clement Saba MD calcium carbonate-vitamin D3 500 mg-5 mcg (200 unit) per tablet 1 tablet, 1 tablet, oral, BID, Denis Angel MD, 1 tablet at 04/06/25 0950 clopidogrel (Plavix) tablet 75 mg, 75 mg, oral, Daily, Clement Saba MD, 75 mg at 04/06/25 0950 guaiFENesin (Mucinex) 12 hr tablet 1,200 mg, 1,200 mg, oral, BID, Denis Angel MD, 1,200 mg at 04/06/25 0950 HYDROcodone-acetaminophen (Marion) 5-325 mg per tablet 1 tablet, 1 tablet, oral, q4h PRN, Denis Angel MD, 1 tablet at 04/05/25 1312 melatonin tablet 5 mg, 5 mg, oral, Nightly PRN, Meghna Zavaleta CNP, 5 mg at 04/05/25 2149 mirtazapine (Remeron) tablet 15 mg, 15 mg, oral, Daily, Denis Angel MD, 15 mg at 04/06/25 0950 mometasone-formoterol (Dulera 100) 100-5 mcg/actuation inhaler 1 puff, 1 puff, inhalation, BID, Denis Angel MD, 1 puff at 04/06/25 0800 pantoprazole (ProtoNix) EC tablet 40 mg, 40 mg, oral, Daily, Denis Angel MD, 40 mg at 04/06/25 0950 roflumilast (Daliresp) tablet 500 mcg, 500 mcg, oral, Daily, Denis Angel MD, 500 mcg at 04/06/25 0950 Objective: Patient Vitals for the past 24 hrs: BP Temp Temp src Pulse Resp SpO2 Weight 04/06/25 0958 145/90 36.8 C (98.2 F) Temporal 98 26 -- -- 04/06/25 0433 133/67 36.6 C (97.9 F) Temporal 80 17 98 % 60.7 kg (133 lb 12.8 oz) 04/05/25 2303 140/88 36.3 C (97.3 F) Temporal 110 19 98 % -- 04/05/25 1945 120/58 36.2 C (97.2 F) Temporal 107 22 95 % -- 04/05/25 1600 -- 36.2 C (97.2 F) Temporal -- -- -- -- 04/05/25 1200 -- 36.8 C (98.2 F) Temporal -- -- -- -- 04/05/25 1145 117/74 -- -- 82 19 -- -- 04/05/25 1130 128/73 -- -- 97 26 -- -- 04/05/25 1115 125/67 -- -- (!) 113 20 -- -- Physical Examination: Physical Exam Constitutional: General: He is not in acute distress. Appearance: He is not ill-appearing. HENT: Head: Normocephalic and atraumatic. Cardiovascular: Rate and Rhythm: Normal rate and regular rhythm. Heart sounds: Normal heart sounds. No murmur heard. Pulmonary: Effort: No respiratory distress. Breath sounds: Normal breath sounds. No wheezing or rales. Abdominal: Palpations: Abdomen is soft. Tenderness: There is no abdominal tenderness. Musculoskeletal: Cervical back: Normal range of motion and neck supple. Right lower leg: No edema. Left lower leg: No edema. Skin: General: Skin is warm and dry. Capillary Refill: Capillary refill takes less than 2 seconds. Neurological: Mental Status: He is alert and oriented to person, place, and time. Mental status is at baseline. Relevant Lab Results Encounter Date: 04/05/25 ECG 12 lead Result Value Ventricular Rate 89 QRS DURATION 78 QT Interval 344 QTC CALCULATION(BAZETT) 418 R-Sherwood 59 T Wave Sherwood 53 Impression Atrial fibrillation Abnormal ECG When compared with ECG of 05-APR-2025 08:54, Vent. rate has decreased BY 65 BPM Criteria for Anterior infarct are no longer Present ST no longer depressed in Inferior lead ST no longer depressed in Lateral T wave inversion no longer evident in Inferior lead T wave amplitude has decreased in Anterior leads Confirmed by Maximiliano ROYAL, L.S. (2) on 04/05/2025 1:35:27 PM No results found for: CKTOTAL , CKMB , CKMBINDEX , TROPONINI No echocardiogram results found for the past 12 months No nuclear medicine results found for the past 12 months Relevant Imaging Results ECG 12 lead Atrial fibrillation Abnormal ECG When compared with ECG of 05-APR-2025 08:54, Vent. rate has decreased BY 65 BPM Criteria for Anterior infarct are no longer Present ST no longer depressed in Inferior lead ST no longer depressed in Lateral T wave inversion no longer evident in Inferior lead T wave amplitude has decreased in Anterior leads Confirmed by Kory ROYAL., L.S. (2) on 04/05/2025 1:35:27 PM Cardiac catheterization PROCEDURE PHYSICIAN: Rene Fajardo MD . Indications: Mateo Stearns is a 64 y.o. male was evaluated [...] informed consent. he was brought to the medical laboratory specialist in a fasting state. The left wrist area was prepped and draped in usual fashion. Micropuncture technique was used for access in the left radial artery. A 6-Cuban x 11 cm sheath was placed. Verapamil was given through the sheath, and heparin was administered intravenously. The 6-Cuban JR4 catheter was navigated across the aortic valve over a wire and used to perform left heart catheterization with measurement of pressures. Pullback across the aortic valve was performed with measurement of pressures. Bilateral selective coronary angiography was then performed using 6-Cuban JL4 and JR4 diagnostic catheters. Catheters were removed. Heparin was administered intravenously and therapeutic ACT was confirmed during the rest of the procedure. A 6-Cuban XB 3.5 guiding catheter was advanced and used to engage the left coronary ostium. Baseline FAMILIA flow was 3. A [employer] coronary guide wire was advanced to the distal LAD coronary artery. We decided to protect the diagonal branch with a wire. A [employer] coronary guidewire was then advanced and used [...] mid LAD with inflations up to 12 Micheal. The balloon was retracted. Angiography was performed. A Synergy XD 3.0 x 48 mm drug-eluting stent was advanced and deployed at 8 Micheal across the stenosis. Angiography was performed and this showed patency of the diagonal branch. The Fielder wire was retracted from the diagonal branch. The stent balloon was then inflated at 11 micheal for nominal deployment of the stent. The stent was then postdilated using NC emerge 3.25 x 15 mm noncompliant balloon inflated up to 20 micheal throughout the length of the stented segment. [...] Eliquis therapy. Follow up in Cardiology Clinic. Rene Fajardo MD Electrocardiogram, 12-lead Atrial fibrillation with rapid ventricular response with premature ventricular or aberrantly conducted complexes Anterior infarct , age undetermined ST & T wave abnormality, consider inferior ischemia Abnormal ECG When compared with ECG of 09-SEP-2015 13:25, Significant changes have occurred Confirmed by Maximiliano WADE, KAN Meza ([id number]) on 04/05/2025 9:37:46 AM ASSESSMENT Coronary artery disease status post PCI to proximal and mid LAD Normal LVEF 55% based on transthoracic echocardiogram in [facility] on 03/29/2025 Paroxysmal atrial fibrillation, CHADSVASC of 2 given age and CAD. Thoracic aortic aneurysm with plan for endovascular repair as per vascular team. PLAN Dual antiplatelet therapy with aspirin and Plavix will need to be resumed perioperatively. Add Lipitor 40 mg Obtain A1c and Lipid panel Start low dose Eliquis 2.5 mg bid, as patient will be on triple therapy until he gets his surgery done with vascular team, after that he can be taken off aspirin and started on full dose Eliquis in addition to plavix, this was discussed with . Start on Toprol 50 mg daily and discontinue cardizem. Remainder of care as per primary team and other consultative services No objection to discharge from cardiology standpoint. This note was, at least in part, completed using a voice milk pickup truck driver system. Every effort was made to ensure accuracy. However, inadvertent computerized milk pickup truck driver errors may be present. Huber Cardenas MD PGY-4 Wire Frame Lamp Shade Maker [facility] documented in this encounter [facility] 04-30-2025 Attending History and physical note HISTORY AND PHYSICAL INTERVAL NOTE: Mateo Vergarayt 1960 [id number] H&P reviewed. The patient was examined and there are no changes to the H&P. Sadie Piper MD Source Note - Huber Cardenas MD - 04/06/2025 10:58 AM EDT Images from the original note were not included. Attestation with edits by Evelin Renteria MD at 04/06/2025 11:04 PM I personally saw and examined the patient on the same date of service as resident/fellow Dr Cardenas. I discussed the findings and therapeutic plan with the resident/fellow Dr Cardenas. I agree with the documentation, except for any edits/updates below. Teaching Physician's Revisions: None Evelin Renteria MD, [facility] Cardiology Progress Note Subjective Subjective: Patient was seen and examined. Reported feeling well. No chest pain, or shortness of breath. No abdominal pain, nausea, or vomiting. No orthopnea or paroxysmal nocturnal dyspnea. No lower leg swelling. No acute events overnight. Objective Current Facility-Administered Medications: acetaminophen (Tylenol) tablet 650 mg, 650 mg, oral, q6h PRN, Meghna Zavaleta, MANAGER TECHNICAL TRAINING, 650 mg at 04/05/25 2302 albuterol 2.5 mg /3 mL (0.083 %) nebulizer solution 2.5 mg, 2.5 mg, nebulization, q8h PRN, Denis Angel MD apixaban (Eliquis) tablet 2.5 mg, 2.5 mg, oral, BID, Huber Cardenas MD aspirin EC tablet 81 mg, 81 mg, oral, Daily, Clement Saba MD calcium carbonate-vitamin D3 500 mg-5 mcg (200 unit) per tablet 1 tablet, 1 tablet, oral, BID, Denis Angel MD, 1 tablet at 04/06/25 0950 clopidogrel (Plavix) tablet 75 mg, 75 mg, oral, Daily, Clement Saba MD, 75 mg at 04/06/25 0950 guaiFENesin (Mucinex) 12 hr tablet 1,200 mg, 1,200 mg, oral, BID, Denis Angel MD, 1,200 mg at 04/06/25 0950 HYDROcodone-acetaminophen (Marion) 5-325 mg per tablet 1 tablet, 1 tablet, oral, q4h PRN, Denis Angel MD, 1 tablet at 04/05/25 1312 melatonin tablet 5 mg, 5 mg, oral, Nightly PRN, Meghna Zavaleta, MANAGER TECHNICAL TRAINING, 5 mg at 04/05/25 2149 mirtazapine (Remeron) tablet 15 mg, 15 mg, oral, Daily, Denis Angel MD, 15 mg at 04/06/25 0950 mometasone-formoterol (Dulera 100) 100-5 mcg/actuation inhaler 1 puff, 1 puff, inhalation, BID, Denis Angel MD, 1 puff at 04/06/25 0800 pantoprazole (ProtoNix) EC tablet 40 mg, 40 mg, oral, Daily, Denis Angel MD, 40 mg at 04/06/25 0950 roflumilast (Daliresp) tablet 500 mcg, 500 mcg, oral, Daily, Denis Angel MD, 500 mcg at 04/06/25 0950 Objective: Patient Vitals for the past 24 hrs: BP Temp Temp src Pulse Resp SpO2 Weight 04/06/25 0958 145/90 36.8 C (98.2 F) Temporal 98 26 -- -- 04/06/25 0433 133/67 36.6 C (97.9 F) Temporal 80 17 98 % 60.7 kg (133 lb 12.8 oz) 04/05/25 2303 140/88 36.3 C (97.3 F) Temporal 110 19 98 % -- 04/05/25 1945 120/58 36.2 C (97.2 F) Temporal 107 22 95 % -- 04/05/25 1600 -- 36.2 C (97.2 F) Temporal -- -- -- -- 04/05/25 1200 -- 36.8 C (98.2 F) Temporal -- -- -- -- 04/05/25 1145 117/74 -- -- 82 19 -- -- 04/05/25 1130 128/73 -- -- 97 26 -- -- 04/05/25 1115 125/67 -- -- (!) 113 20 -- -- Physical Examination: Physical Exam Constitutional: General: He is not in acute distress. Appearance: He is not ill-appearing. HENT: Head: Normocephalic and atraumatic. Cardiovascular: Rate and Rhythm: Normal rate and regular rhythm. Heart sounds: Normal heart sounds. No murmur heard. Pulmonary: Effort: No respiratory distress. Breath sounds: Normal breath sounds. No wheezing or rales. Abdominal: Palpations: Abdomen is soft. Tenderness: There is no abdominal tenderness. Musculoskeletal: Cervical back: Normal range of motion and neck supple. Right lower leg: No edema. Left lower leg: No edema. Skin: General: Skin is warm and dry. Capillary Refill: Capillary refill takes less than 2 seconds. Neurological: Mental Status: He is alert and oriented to person, place, and time. Mental status is at baseline. Relevant Lab Results Encounter Date: 04/05/25 ECG 12 lead Result Value Ventricular Rate 89 QRS DURATION 78 QT Interval 344 QTC CALCULATION(BAZETT) 418 R-Sherwood 59 T Wave Sherwood 53 Impression Atrial fibrillation Abnormal ECG When compared with ECG of 05-APR-2025 08:54, Vent. rate has decreased BY 65 BPM Criteria for Anterior infarct are no longer Present ST no longer depressed in Inferior lead ST no longer depressed in Lateral T wave inversion no longer evident in Inferior lead T wave amplitude has decreased in Anterior leads Confirmed by Maximiliano ROYAL, L.S. (2) on 04/05/2025 1:35:27 PM No results found for: CKTOTAL , CKMB , CKMBINDEX , TROPONINI No echocardiogram results found for the past 12 months No nuclear medicine results found for the past 12 months Relevant Imaging Results ECG 12 lead Atrial fibrillation Abnormal ECG When compared with ECG of 05-APR-2025 08:54, Vent. rate has decreased BY 65 BPM Criteria for Anterior infarct are no longer Present ST no longer depressed in Inferior lead ST no longer depressed in Lateral T wave inversion no longer evident in Inferior lead T wave amplitude has decreased in Anterior leads Confirmed by Maximiliano ROYAL, L.S. (2) on 04/05/2025 1:35:27 PM Cardiac catheterization PROCEDURE PHYSICIAN: Rene Fajardo MD . Indications: Mateo Stearns is a 64 y.o. male was evaluated [...] informed consent. he was brought to the medical laboratory specialist in a fasting state. The left wrist area was prepped and draped in usual fashion. Micropuncture technique was used for access in the left radial artery. A 6-Cuban x 11 cm sheath was placed. Verapamil was given through the sheath, and heparin was administered intravenously. The 6-Cuban JR4 catheter was navigated across the aortic valve over a wire and used to perform left heart catheterization with measurement of pressures. Pullback across the aortic valve was performed with measurement of pressures. Bilateral selective coronary angiography was then performed using 6-Cuban JL4 and JR4 diagnostic catheters. Catheters were removed. Heparin was administered intravenously and therapeutic ACT was confirmed during the rest of the procedure. A 6-Cuban XB 3.5 guiding catheter was advanced and used to engage the left coronary ostium. Baseline FAMILIA flow was 3. A [employer] coronary guide wire was advanced to the [...] mid LAD with inflations up to 12 Micheal. The balloon was retracted. Angiography was performed. A Synergy XD 3.0 x 48 mm drug-eluting stent was advanced and deployed at 8 Micheal across the stenosis. Angiography was performed and this showed patency of the diagonal branch. The Fielder wire was retracted from the diagonal branch. The stent balloon was then inflated at 11 micheal for nominal deployment of the stent. The stent was then postdilated using NC emerge 3.25 x 15 mm noncompliant balloon inflated up to 20 micheal throughout the length of the stented segment. [...] Eliquis therapy. Follow up in Cardiology Clinic. Rene Fajardo MD Electrocardiogram, 12-lead Atrial fibrillation with rapid ventricular response with premature ventricular or aberrantly conducted complexes Anterior infarct , age undetermined ST & T wave abnormality, consider inferior ischemia Abnormal ECG When compared with ECG of 09-SEP-2015 13:25, Significant changes have occurred Confirmed by Maximiliano WADE, KAN Meza ([id number]) on 04/05/2025 9:37:46 AM ASSESSMENT Coronary artery disease status post PCI to proximal and mid LAD Normal LVEF 55% based on transthoracic echocardiogram in [facility] on 03/29/2025 Paroxysmal atrial fibrillation, CHADSVASC of 2 given age and CAD. Thoracic aortic aneurysm with plan for endovascular repair as per vascular team. PLAN Dual antiplatelet therapy with aspirin and Plavix will need to be resumed perioperatively. Add Lipitor 40 mg Obtain A1c and Lipid panel Start low dose Eliquis 2.5 mg bid, as patient will be on triple therapy until he gets his surgery done with vascular team, after that he can be taken off aspirin and started on full dose Eliquis in addition to plavix, this was discussed with . Start on Toprol 50 mg daily and discontinue cardizem. Remainder of care as per primary team and other consultative services No objection to discharge from cardiology standpoint. This note was, at least in part, completed using a voice milk pickup truck driver system. Every effort was made to ensure accuracy. However, inadvertent computerized milk pickup truck driver errors may be present. Huber Cardenas MD PGY-4 Wire Frame Lamp Shade Maker [facility] 04-16-2025 Instructions Formatting of th is note might be different from the original. Your surgery/procedure is scheduled at [facility] on 04/30/2025 at 1130 Arrival Time 0930 [facility] Address: [address] [place] [address]. [address] Parking lot located on [facility]. Report to the Entrance B. Check in at the information desk the surgery. The waiting room located on the second floor. If you have any questions prior to surgery, please call Pre-Admission Clinic at [phone] between 7:30 am and 4:30 pm Tuesday through Tuesday. If you have questions the morning of surgery, please call the Pre-op Department at [phone]. Notify your SURGEON if you develop any illness such as a cold, cough, fever, sore throat, vomiting or are hospitalized between now and your surgery. Medication Instructions (Do not stop your medications without consulting the prescribing physician). Take the following medications the morning of surgery with a sip of water: per surgeon Diabetic or Weight loss medications: HOLD per surgeon LAST DOSE per surgeon Take inhalers as prescribed the morning of surgery. Due to the risk associated with these medications. If these medications are not held per instruction below, your surgery is at an increased risk for cancellation. SGLT2 Medications- Hold 3 days prior to surgery: Jardiance, Empagliflozin, Farxiga, Dapagliflozin, Invokana, Canagliflozin, Trijardy, Synjardy GLP-1 Medications (Injection or Pill)- If taken daily hold day of surgery. If taken weekly, hold 1 week prior to surgery: Adlyxin, Byetta, Bydureon, Ozempic, Rybelsus,Trulicity, Victoza, Wegovy, Lixisenatide, Exenatide, Semaglutide, Dulaglutide, Liraglutide GIP/GLP-1(Injection or Pill)- If taken daily hold day of surgery. If taken weekly, hold 1 week prior to surgery: Mounjaro . Blood thinners: Please contact your prescribing physician regarding a stop/hold date for these medications. Medications such as Coumadin, Heparin, Aspirin, Plavix, Eliquis, Pradaxa Diabetics: If you take insulin, contact your prescribing doctor for instructions on how to manage this the night before and the morning of surgery. Non-steriodal Anti-Inflammatory Drugs (NSAIDS)- Hold 3 days prior to surgery unless otherwise directed by your surgeon. Vitamins/Herbal Products: You may continue to take your prescribed vitamins such as potassium, iron, vitamin B, vitamin C, or multivitamin unless specifically instructed by your surgeon to hold. STOP taking all herbal products/teas one week prior to your surgery. Marijuana: Stop marijuana 72 hours prior to surgery, stop CBD oil 48 hours prior to surgery. If you have been given bowel prep instructions by your surgeon, please call the surgeon's office with any questions about these instructions. What do I do the day of Surgery? Age 2 through adult - Stop all solids by midnight, You may have clear liquids up to 2 hours before surgery, unless otherwise instructed by your surgeon. Clear liquids are: water, sports drinks such as Gatorade or G2, or apple juice. You may NOT have: tube feedings, dairy products, alcoholic beverages, orange juice, or any liquids with solids or pulp in it. If applicable, shower again with CHG soap the morning of your surgery. In order to help prevent infection post-operatively, you may be asked to use a CHG mouthwash when you arrive to the Pre-op area. Your nurse will provide instruction the morning of. What do I need to do to prepare for surgery? If you will be going home the same day as your surgery, arrange for an adult over [address] Riding in a bus or taxi by yourself is not permitted. You should not smoke or drink alcohol 24 hours before your surgery. Alcohol thins the blood and may cause bleeding problems during surgery. Smoking increases the risk of breathing problems after surgery. Do not use lotions, creams, powders, perfume, make up, cologne or after-shaves day of surgery. Remove ALL jewelry including wedding rings, body piercings (including dermal piercing's, hair extensions that contain metal, nail singaporean, make-up, and contact lens. You may brush your teeth the morning of surgery, but do not swallow the water. Wear your dentures and partial plates to the hospital (no adhesive). Shower the night the before. If applicable, use the CHG (chlorhexidine gluconate) soap or wipes. Place clean linens on your bed after showering. Do not allow pets to sleep in your bed What should I bring to the hospital? Eyeglass or contact lens case If you will be spending the night, please bring personal care items and leave them in the car until you are taken to your room after surgery. Leave ALL valuables at home. If any of these instructions conflict with those you received from the surgeon, please seek clarification from your surgeon's office. DEEP BREATHING EXERCISES This exercise helps promote good air exchange and helps to prevent pneumonia after surgery. Breathe in slowly and deeply through the nose. Hold your breath for a few seconds and then exhale slowly through the mouth. Repeat this three times and then cough.Coughing helps to clear your lungs. If you have had a surgery with an incision into your abdomen or chest, press gently against your incision with a pillow or a folded blanket when you cough. Please be aware - it may not be sinha to cough following some types of surgeries involving the eyes, ears, sinuses and throat. Always follow your doctor's instructions. LEG EXERCISE These exercises help promote good circulation and help to prevent blood clots after surgery. Point your toes to the ceiling and then point them to the wall. Do this slowly about 15-20 times. You may also move your feet in circles. Do the exercise that is most comfortable for you. If you have had surgery involving your shoulder or arm, we recommend you move your fingers. PRACTICING We ask that you begin practicing these exercises before your surgery. After surgery try to do both exercises at least every 2 hours during the day and early evening. Surgical Site Infection Prevention What is a Surgical Site Infection (SSI)? Infection can happen to the area of the body where surgery is done. This is called a surgical site infection (SSI). A SSI does not happen very often. What are some of the things that hospitals are doing to prevent SSIs? Soap and water or alcohol hand rub are used before and after caring for each patient. Special soap is used to clean surgery workers hands and arms just before the surgery. Masks, gowns, gloves and hair covers are worn during the surgery to keep the area clean. Hair in the surgery area may be removed with clippers (not razors). A special soap that kills germs is used to clean the skin at the surgery site. Antibiotics may be given before the surgery starts. What can you do to prevent SSIs? Before surgery: You may be asked to shower or bathe with a special soap that kills germs the night before and the day of surgery. Use the soap as you were told. Place clean sheets on your bed the night before surgery and do not allow your pets in your bed. If you smoke or vape, stop or cut down. This creates a stress response in your body that increases inflammation, constricts blood vessels and deprives your tissues of oxygen. After surgery, this stress response disrupts the travel of oxygen, nutrients, and blood to your surgical site, interfering with the wound healing process. It also decreases the ability of your cells to fight infection. Ask your doctor about ways to quit. If you have high blood sugars or diabetes please talk with your doctor about having healthy blood sugar levels to promote healing. Do not shave near where you will have surgery. Shaving can irritate the skin and make it easier to get and infection. After surgery: Be sure that the doctors and nurses clean their hands before and after touching you. Be sure your family and friends clean their hands before and after visiting you. Do not be afraid to remind them. Always wash your hands before touching your incisional area. * Care for your wound at home as told by your doctor or nurse * Call your doctor right away if you have fever, redness, increased pain, or drainage at the surgery site. Can SSIs be treated? Antibiotics are used to treat SSI. Some patients may need another surgery to treat the infection. The doctor will discuss treatment options with you. Further questions? Contact the doctor, nurse or the Infection Prevention and Control department if you have any questions. PATIENT RIGHTS AND RESPONSIBILITIES As a patient at [facility], you have the right to: Receive medical care and be informed of who is taking care of you Be treated with dignity and respect Have a family member/fraud representative of choice and your physician notified of your admission Receive information and actively participate in decisions about your care and treatment Refuse care, treatment and services Decide who may provide your support and speak for you Access methodist and spiritual services Participate in ethical issues and questions about your care Receive private and confidential care Have appropriate assessment and management of your pain Know guest visitation restrictions or limitations Have an advance directive Access protective services Consent or refuse to participate in research studies or production or recordings, films or other images Have resolution of your complaints Receive information of hospital charges and payment methods Patient/patient fraud representative responsibilities are to: Provide information about health status to facilitate care, treatment and services Follow the treatment, plan, keep appointments and speak up when you do not understand the plan Respect the rights of other patients and healthcare personnel Follow organizational rules and regulations that support quality care and a safe environment Fulfill financial obligations as promptly as possible PATIENT RIGHTS AND RESPONSIBILITIES As a patient at [facility], you have the right to: Receive medical care and be informed of who is taking care of you Be treated with dignity and respect Have a family member/fraud representative of choice and your physician notified of your admission Receive information and actively participate in decisions about your care and treatment Refuse care, treatment and services Decide who may provide your support and speak for you Access methodist and spiritual services Participate in ethical issues and questions about your care Receive private and confidential care Have appropriate assessment and management of your pain Know guest visitation restrictions or limitations Have an advance directive Access protective services Consent or refuse to participate in research studies or production or recordings, films or other images Have resolution of your complaints Receive information of hospital charges and payment methods Patient/patient fraud representative responsibilities are to: Provide information about health status to facilitate care, treatment and services Follow the treatment, plan, keep appointments and speak up when you do not understand the plan Respect the rights of other patients and healthcare personnel Follow organizational rules and regulations that support quality care and a safe environment Fulfill financial obligations as promptly as possible Surgical Site Infection Prevention What is a Surgical Site Infection (SSI)? Infection can happen to the area of the body where surgery is done. This is called a surgical site infection (SSI). A SSI does not happen very often, but it is important for the hospital and you to do everything possible to avoid a SSI. What are some of the things that hospitals are doing to prevent SSIs? Soap and water or alcohol hand rub are used before and after caring for each patient. Special soap is used to clean surgery workers hands and arms just before the surgery. Masks, gowns, gloves and hair covers are worn during the surgery to keep the area clean. Hair in the surgery area may be removed with clippers (not razors). A special soap that kills germs is used to clean the skin at the surgery site. Antibiotics may be given before the surgery starts. What can you do to prevent SSIs? Before surgery: You may be asked to shower or bathe with a special soap that kills germs the night before and the day of surgery. Use the soap as you were told. Place clean sheets on your bed the night before surgery and do not allow your pets in your bed. If you smoke or vape, stop or cut down. This creates a stress response in your body that increases inflammation, constricts blood vessels and deprives your tissues of oxygen. After surgery, this stress response disrupts the travel of oxygen, nutrients, and blood to your surgical site, interfering with the wound healing process. It also decreases the ability of your cells to fight infection. Ask your doctor about ways to quit. If you have high blood sugars or diabetes please talk with your doctor about having healthy blood sugar levels to promote healing. Do not shave near where you will have surgery. Shaving can irritate the skin and make it easier to get and infection. After surgery: Be sure that the doctors and nurses clean their hands before and after touching you. Be sure your family and friends clean their hands before and after visiting you. Do not be afraid to remind them. Always wash your hands before touching your incisional area. * Care for your wound at home as told by your doctor or nurse * Call your doctor right away if you have fever, redness, increased pain, or drainage at the surgery site. Can SSIs be treated? Antibiotics are used to treat SSI. Some patients may need another surgery to treat the infection. The doctor will discuss treatment options with you. Further questions? Contact the doctor, nurse or the Infection Prevention and Control department if you have any questions. [facility] 04-16-2025 Miscellaneous Notes Fax sent to [facility] requesting information for preop Your surgery/procedure is scheduled at [facility] on 04/30/2025 at 1130 Arrival Time 0930 [facility] Address: [address] [place] [address] Park in [address] Parking lot located on [facility]. Report to the Entrance B. Check in at the information desk the surgery. The waiting room located on the second floor. If you have any questions prior to surgery, please call Pre-Admission Clinic at [phone] between 7:30 am and 4:30 pm Tuesday through Tuesday. If you have questions the morning of surgery, please call the Pre-op Department at [phone]. Notify your SURGEON if you develop any illness such as a cold, cough, fever, sore throat, vomiting or are hospitalized between now and your surgery. Medication Instructions (Do not stop your medications without consulting the prescribing physician). Take the following medications the morning of surgery with a sip of water: per surgeon Diabetic or Weight loss medications: HOLD per surgeon LAST DOSE per surgeon Take inhalers as prescribed the morning of surgery. Due to the risk associated with these medications. If these medications are not held per instruction below, your surgery is at an increased risk for cancellation. SGLT2 Medications- Hold 3 days prior to surgery: Jardiance, Empagliflozin, Farxiga, Dapagliflozin, Invokana, Canagliflozin, Trijardy, Synjardy GLP-1 Medications (Injection or Pill)- If taken daily hold day of surgery. If taken weekly, hold 1 week prior to surgery: Adlyxin, Byetta, Bydureon, Ozempic, Rybelsus,Trulicity, Victoza, Wegovy, Lixisenatide, Exenatide, Semaglutide, Dulaglutide, Liraglutide GIP/GLP-1(Injection or Pill)- If taken daily hold day of surgery. If taken weekly, hold 1 week prior to surgery: Migel . Blood thinners: Please contact your prescribing physician regarding a stop/hold date for these medications. Medications such as Coumadin, Heparin, Aspirin, Plavix, Eliquis, Pradaxa Diabetics: If you take insulin, contact your prescribing doctor for instructions on how to manage this the night before and the morning of surgery. Non-steriodal Anti-Inflammatory Drugs (NSAIDS)- Hold 3 days prior to surgery unless otherwise directed by your surgeon. Vitamins/Herbal Products: You may continue to take your prescribed vitamins such as potassium, iron, vitamin B, vitamin C, or multivitamin unless specifically instructed by your surgeon to hold. STOP taking all herbal products/teas one week prior to your surgery. Marijuana: Stop marijuana 72 hours prior to surgery, stop CBD oil 48 hours prior to surgery. If you have been given bowel prep instructions by your surgeon, please call the surgeon's office with any questions about these instructions. What do I do the day of Surgery? Age 2 through adult - Stop all solids by midnight, You may have clear liquids up to 2 hours before surgery, unless otherwise instructed by your surgeon. Clear liquids are: water, sports drinks such as Gatorade or G2, or apple juice. You may NOT have: tube feedings, dairy products, alcoholic beverages, orange juice, or any liquids with solids or pulp in it. If applicable, shower again with CHG soap the morning of your surgery. In order to help prevent infection post-operatively, you may be asked to use a CHG mouthwash when you arrive to the Pre-op area. Your nurse will provide instruction the morning of. What do I need to do to prepare for surgery? If you will be going home the same day as your surgery, arrange for an adult over [address] Riding in a bus or taxi by yourself is not permitted. You should not smoke or drink alcohol 24 hours before your surgery. Alcohol thins the blood and may cause bleeding problems during surgery. Smoking increases the risk of breathing problems after surgery. Do not use lotions, creams, powders, perfume, make up, cologne or after-shaves day of surgery. Remove ALL jewelry including wedding rings, body piercings (including dermal piercing's, hair extensions that contain metal, nail singaporean, make-up, and contact lens. You may brush your teeth the morning of surgery, but do not swallow the water. Wear your dentures and partial plates to the hospital (no adhesive). Shower the night the before. If applicable, use the CHG (chlorhexidine gluconate) soap or wipes. Place clean linens on your bed after showering. Do not allow pets to sleep in your bed What should I bring to the hospital? Eyeglass or contact lens case If you will be spending the night, please bring personal care items and leave them in the car until you are taken to your room after surgery. Leave ALL valuables at home. If any of these instructions conflict with those you received from the surgeon, please seek clarification from your surgeon's office. DEEP BREATHING EXERCISES This exercise helps promote good air exchange and helps to prevent pneumonia after surgery. Breathe in slowly and deeply through the nose. Hold your breath for a few seconds and then exhale slowly through the mouth. Repeat this three times and then cough.Coughing helps to clear your lungs. If you have had a surgery with an incision into your abdomen or chest, press gently against your incision with a pillow or a folded blanket when you cough. Please be aware - it may not be sinha to cough following some types of surgeries involving the eyes, ears, sinuses and throat. Always follow your doctor's instructions. LEG EXERCISE These exercises help promote good circulation and help to prevent blood clots after surgery. Point your toes to the ceiling and then point them to the wall. Do this slowly about 15-20 times. You may also move your feet in circles. Do the exercise that is most comfortable for you. If you have had surgery involving your shoulder or arm, we recommend you move your fingers. PRACTICING We ask that you begin practicing these exercises before your surgery. After surgery try to do both exercises at least every 2 hours during the day and early evening. Surgical Site Infection Prevention What is a Surgical Site Infection (SSI)? Infection can happen to the area of the body where surgery is done. This is called a surgical site infection (SSI). A SSI does not happen very often. What are some of the things that hospitals are doing to prevent SSIs? Soap and water or alcohol hand rub are used before and after caring for each patient. Special soap is used to clean surgery workers hands and arms just before the surgery. Masks, gowns, gloves and hair covers are worn during the surgery to keep the area clean. Hair in the surgery area may be removed with clippers (not razors). A special soap that kills germs is used to clean the skin at the surgery site. Antibiotics may be given before the surgery starts. What can you do to prevent SSIs? Before surgery: You may be asked to shower or bathe with a special soap that kills germs the night before and the day of surgery. Use the soap as you were told. Place clean sheets on your bed the night before surgery and do not allow your pets in your bed. If you smoke or vape, stop or cut down. This creates a stress response in your body that increases inflammation, constricts blood vessels and deprives your tissues of oxygen. After surgery, this stress response disrupts the travel of oxygen, nutrients, and blood to your surgical site, interfering with the wound healing process. It also decreases the ability of your cells to fight infection. Ask your doctor about ways to quit. If you have high blood sugars or diabetes please talk with your doctor about having healthy blood sugar levels to promote healing. Do not shave near where you will have surgery. Shaving can irritate the skin and make it easier to get and infection. After surgery: Be sure that the doctors and nurses clean their hands before and after touching you. Be sure your family and friends clean their hands before and after visiting you. Do not be afraid to remind them. Always wash your hands before touching your incisional area. * Care for your wound at home as told by your doctor or nurse * Call your doctor right away if you have fever, redness, increased pain, or drainage at the surgery site. Can SSIs be treated? Antibiotics are used to treat SSI. Some patients may need another surgery to treat the infection. The doctor will discuss treatment options with you. Further questions? Contact the doctor, nurse or the Infection Prevention and Control department if you have any questions. PATIENT RIGHTS AND RESPONSIBILITIES As a patient at [facility], you have the right to: Receive medical care and be informed of who is taking care of you Be treated with dignity and respect Have a family member/fraud representative of choice and your physician notified of your admission Receive information and actively participate in decisions about your care and treatment Refuse care, treatment and services Decide who may provide your support and speak for you Access methodist and spiritual services Participate in ethical issues and questions about your care Receive private and confidential care Have appropriate assessment and management of your pain Know guest visitation restrictions or limitations Have an advance directive Access protective services Consent or refuse to participate in research studies or production or recordings, films or other images Have resolution of your complaints Receive information of hospital charges and payment methods Patient/patient fraud representative responsibilities are to: Provide information about health status to facilitate care, treatment and services Follow the treatment, plan, keep appointments and speak up when you do not understand the plan Respect the rights of other patients and healthcare personnel Follow organizational rules and regulations that support quality care and a safe environment Fulfill financial obligations as promptly as possible PATIENT RIGHTS AND RESPONSIBILITIES As a patient at [facility], you have the right to: Receive medical care and be informed of who is taking care of you Be treated with dignity and respect Have a family member/fraud representative of choice and your physician notified of your admission Receive information and actively participate in decisions about your care and treatment Refuse care, treatment and services Decide who may provide your support and speak for you Access methodist and spiritual services Participate in ethical issues and questions about your care Receive private and confidential care Have appropriate assessment and management of your pain Know guest visitation restrictions or limitations Have an advance directive Access protective services Consent or refuse to participate in research studies or production or recordings, films or other images Have resolution of your complaints Receive information of hospital charges and payment methods Patient/patient fraud representative responsibilities are to: Provide information about health status to facilitate care, treatment and services Follow the treatment, plan, keep appointments and speak up when you do not understand the plan Respect the rights of other patients and healthcare personnel Follow organizational rules and regulations that support quality care and a safe environment Fulfill financial obligations as promptly as possible Surgical Site Infection Prevention What is a Surgical Site Infection (SSI)? Infection can happen to the area of the body where surgery is done. This is called a surgical site infection (SSI). A SSI does not happen very often, but it is important for the hospital and you to do everything possible to avoid a SSI. What are some of the things that hospitals are doing to prevent SSIs? Soap and water or alcohol hand rub are used before and after caring for each patient. Special soap is used to clean surgery workers hands and arms just before the surgery. Masks, gowns, gloves and hair covers are worn during the surgery to keep the area clean. Hair in the surgery area may be removed with clippers (not razors). A special soap that kills germs is used to clean the skin at the surgery site. Antibiotics may be given before the surgery starts. What can you do to prevent SSIs? Before surgery: You may be asked to shower or bathe with a special soap that kills germs the night before and the day of surgery. Use the soap as you were told. Place clean sheets on your bed the night before surgery and do not allow your pets in your bed. If you smoke or vape, stop or cut down. This creates a stress response in your body that increases inflammation, constricts blood vessels and deprives your tissues of oxygen. After surgery, this stress response disrupts the travel of oxygen, nutrients, and blood to your surgical site, interfering with the wound healing process. It also decreases the ability of your cells to fight infection. Ask your doctor about ways to quit. If you have high blood sugars or diabetes please talk with your doctor about having healthy blood sugar levels to promote healing. Do not shave near where you will have surgery. Shaving can irritate the skin and make it easier to get and infection. After surgery: Be sure that the doctors and nurses clean their hands before and after touching you. Be sure your family and friends clean their hands before and after visiting you. Do not be afraid to remind them. Always wash your hands before touching your incisional area. * Care for your wound at home as told by your doctor or nurse * Call your doctor right away if you have fever, redness, increased pain, or drainage at the surgery site. Can SSIs be treated? Antibiotics are used to treat SSI. Some patients may need another surgery to treat the infection. The doctor will discuss treatment options with you. Further questions? Contact the doctor, nurse or the Infection Prevention and Control department if you have any questions. documented in this encounter [facility] 04-16-2025 Nurse Note Fax sent to [facility] requesting information for preop [facility] 04-11-2025 Telephone encounter Note Requested Prescriptions Signed Prescriptions Disp Refills HYDROcodone-acetaminophen (Marion) 5-325 MG tablet 180 tablet 0 Sig: Take 1 tablet by mouth every 4 (four) hours if needed for severe pain Authorizing Provider: CAROL MEYERS [facility] 04-11-2025 Miscellaneous Notes Requested Prescriptions Signed Prescriptions Disp Refills HYDROcodone-acetaminophen (Marion) 5-325 MG tablet 180 tablet 0 Sig: Take 1 tablet by mouth every 4 (four) hours if needed for severe pain Authorizing Provider: CAROL MEYERS documented in this encounter [facility] 04-06-2025 Note Pt has DC orders. Ph oned [facility] and pt has a paid bed hold, they can accept pt today. Faxed updates and AVS/DC order to [facility]. Transfer packet done. [facility] will transport pt at 8:45pm. Updated Lynn MCLEAN and provided phone number to call [facility] with report. [facility] 04-06-2025 Note Attestation with edits by Evelin Renteria MD at 04/06/2025 11:04 PM I personally saw and examined the patient on the same date of service as resident/fellow Dr Cardenas. I discussed the findings and therapeutic plan with the resident/fellow Dr Cardenas. I agree with the documentation, except for any edits/updates below. Teaching Physician's Revisions: None Evelin Renteria MD, [facility] Cardiology Progress Note Subjective Subjective: Patient was seen and examined. Reported feeling well. No chest pain, or shortness of breath. No abdominal pain, nausea, or vomiting. No orthopnea or paroxysmal nocturnal dyspnea. No lower leg swelling. No acute events overnight. Objective Current Facility-Administered Medications: acetaminophen (Tylenol) tablet 650 mg, 650 mg, oral, q6h PRN, Meghna kl, MANAGER TECHNICAL TRAINING, 650 mg at 04/05/25 2302 albuterol 2.5 mg /3 mL (0.083 %) nebulizer solution 2.5 mg, 2.5 mg, nebulization, q8h PRN, Denis Angel MD apixaban (Eliquis) tablet 2.5 mg, 2.5 mg, oral, BID, Huber Cardenas MD aspirin EC tablet 81 mg, 81 mg, oral, Daily, Clement Saba MD calcium carbonate-vitamin D3 500 mg-5 mcg (200 unit) per tablet 1 tablet, 1 tablet, oral, BID, Denis Angel MD, 1 tablet at 04/06/25 0950 clopidogrel (Plavix) tablet 75 mg, 75 mg, oral, Daily, Clement Saba MD, 75 mg at 04/06/25 0950 guaiFENesin (Mucinex) 12 hr tablet 1,200 mg, 1,200 mg, oral, BID, Denis Angel MD, 1,200 mg at 04/06/25 0950 HYDROcodone-acetaminophen (Marion) 5-325 mg per tablet 1 tablet, 1 tablet, oral, q4h PRN, Denis Angel MD, 1 tablet at 04/05/25 1312 melatonin tablet 5 mg, 5 mg, oral, Nightly PRN, Meghna Zavaleta, MANAGER TECH[employer] TRAINING, 5 mg at 04/05/25 2149 mirtazapine (Remeron) tablet 15 mg, 15 mg, oral, Daily, Denis Angel MD, 15 mg at 04/06/25 0950 mometasone-formoterol (Dulera 100) 100-5 mcg/actuation inhaler 1 puff, 1 puff, inhalation, BID, Denis Angel MD, 1 puff at 04/06/25 0800 pantoprazole (ProtoNix) EC tablet 40 mg, 40 mg, oral, Daily, Denis Angel MD, 40 mg at 04/06/25 0950 roflumilast (Daliresp) tablet 500 mcg, 500 mcg, oral, Daily, Denis Angel MD, 500 mcg at 04/06/25 0950 Objective: Patient Vitals for the past 24 hrs: BP Temp Temp src Pulse Resp SpO2 Weight 04/06/25 0958 145/90 36.8 ???C (98.2 ???F) Temporal 98 26 -- -- 04/06/25 0433 133/67 36.6 ???C (97.9 ???F) Temporal 80 17 98 % 60.7 kg (133 lb 12.8 oz) 04/05/25 2303 140/88 36.3 ???C (97.3 ???F) Temporal 110 19 98 % -- 04/05/25 1945 120/58 36.2 ???C (97.2 ???F) Temporal 107 22 95 % -- 04/05/25 1600 -- 36.2 ???C (97.2 ???F) Temporal -- -- -- -- 04/05/25 1200 -- 36.8 ???C (98.2 ???F) Temporal -- -- -- -- 04/05/25 1145 117/74 -- -- 82 19 -- -- 04/05/25 1130 128/73 -- -- 97 26 -- -- 04/05/25 1115 125/67 -- -- (!) 113 20 -- -- Physical Examination: Physical Exam Constitutional: General: He is not in acute distress. Appearance: He is not ill-appearing. HENT: Head: Normocephalic and atraumatic. Cardiovascular: Rate and Rhythm: Normal rate and regular rhythm. Heart sounds: Normal heart sounds. No murmur heard. Pulmonary: Effort: No respiratory distress. Breath sounds: Normal breath sounds. No wheezing or rales. Abdominal: Palpations: Abdomen is soft. Tenderness: There is no abdominal tenderness. Musculoskeletal: Cervical back: Normal range of motion and neck supple. Right lower leg: No edema. Left lower leg: No edema. Skin: General: Skin is warm and dry. Capillary Refill: Capillary refill takes less than 2 seconds. Neurological: Mental Status: He is alert and oriented to person, place, and time. Mental status is at baseline. Relevant Lab Results Encounter Date: 04/05/25 ECG 12 lead Result Value Ventricular Rate 89 QRS DURATION 78 QT Interval 344 QTC CALCULATION(BAZETT) 418 R-Sherwood 59 T Wave Sherwood 53 Impression Atrial fibrillation Abnormal ECG When compared with ECG of 05-APR-2025 08:54, Vent. rate has decreased BY 65 BPM Criteria for Anterior infarct are no longer Present ST no longer depressed in Inferior lead ST no longer depressed in Lateral T wave inversion no longer evident in Inferior lead T wave amplitude has decreased in Anterior leads Confirmed by Maximiliano ROYAL, L.S. (2) on 04/05/2025 1:35:27 PM No results found for: CKTOTAL , CKMB , CKMBINDEX , TROPONINI No echocardiogram results found for the past 12 months No nuclear medicine results found for the past 12 months Relevant Imaging Results ECG 12 lead Atrial fibrillation Abnormal ECG When compared with ECG of 05-APR-2025 08:54, Vent. rate has decreased BY 65 BPM Criteria for Anterior infarct are no longer Present ST no longer depressed in Inferior lead ST no longer depressed in Lateral T wave inversion no longer (more content not included)... [facility] 04-05-2025 Note As above [facility] 04-05-2025 Note For now keep blood p ressure below 130/88 and heart rate below 88 follow-up with vascular surgery [facility] 04-05-2025 Note Has history remote h istory of paroxysmal atrial fibrillation currently maintained on diltiazem and aspirin check to the vascular score appear to be 1 for age and 1 for vascular disease patient is not on oral anticoagulation extensive bruising and upcoming surgery will follow-up with billet recorder [facility] 04-05-2025 Note Bronchodilators supp lemental oxygen [facility] 04-05-2025 Note Status post left hea rt cath with drug-eluting stents telemetry dual antiplatelet meds pain control follow-up with cardiology [facility] 04-05-2025 Note Hospital Medicine History and Physical 04/05/2025 12:56 PM THE HOSPITALIST TEAM PREFERS TO USE [employer] FOR NON-URGENT COMMUNICATION 7AM-7PM. IF I DO NOT RESPOND WITHIN 20 MINUTES OR URGENT MATTERS, PLEASE CALL THROUGH THE SPEECH PATHOLOGIST ASSISTANT. FROM 7PM-7AM, PLEASE PAGE [phone](COVR). Chief Complaint No chief complaint on file. History of Present Illness Mateo Stearns is an 64 y.o. 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 from cardiac Bsw with the underwent left heart cath with a post procedure diagnosis of 290% stenosis in the proximal and mid LAD both treated by single Synergy XD drug-eluting stent moderate disease elsewhere normal left filling pressures and no evidence of aortic valve stenosis. Patient recently had preop evaluation done by cardiology, endovascular repair of aortic aneurysm. Patient had history of COPD peripheral vascular disease and history of complaint progressive shortness of breath/before that he had a stress test done which was positive for ischemic changes and so underwent left heart cath as above other underlying medical problem paroxysmal atrial fibrillation, history of abdominal aortic aneurysm without rupture chronic GERD which has been stable with proton pump inhibitor Review of System and Physical Exam Temp: [36.8 ???C (98.2 ???F)] 36.8 ???C (98.2 ???F) Heart Rate: [82-150] 82 Resp: [16-26] 19 BP: (103-177)/(59-81) 117/74 Physical Exam Vitals reviewed. Constitutional: Appearance: Normal appearance. HENT: Head: Normocephalic and atraumatic. Nose: Nose normal. Mouth/Throat: Mouth: Mucous membranes are moist. Pharynx: Oropharynx is clear. Eyes: Extraocular Movements: Extraocular movements intact. Pupils: [...] of motion. Cervical back: Normal range of motion and neck supple. Skin: General: Skin is warm and dry. Capillary Refill: Capillary refill takes 2 to 3 seconds. Neurological: Mental Status: He is alert. Mental status is at baseline. Psychiatric: Behavior: Behavior normal. Review of Systems Constitutional: Negative. HENT: Negative. Eyes: Negative. Respiratory: Negative. Cardiovascular: Negative. Gastrointestinal: Negative. Endocrine: Negative. Genitourinary: Negative. Musculoskeletal: Negative. Allergic/Immunologic: Negative. Neurological: Negative. Hematological: Negative. Psychiatric/Behavioral: Negative. Assessment and Plan Assessment & Plan Abnormal stress test Status post left heart cath with drug-eluting stents telemetry dual antiplatelet meds pain control follow-up with cardiology Coronary artery disease As above COPD (chronic obstructive pulmonary disease) ([facility]) Bronchodilators supplemental oxygen Paroxysmal atrial fibrillation ([facility]) Has history remote history of paroxysmal atrial fibrillation currently maintained on diltiazem and aspirin check to the vascular score appear to be 1 for age and 1 for vascular disease patient is not on oral anticoagulation extensive bruising and upcoming surgery will follow-up with billet recorder Thoracic aortic aneurysm, without rupture, unspecified For now keep blood pressure below 130/88 and heart rate below 88 follow-up with vascular surgery CODE STATUS full code VTE Prophylaxis: Will obtain CBC to check platelet and cell count and stable. Subcu heparin ----- Focus of this inpatient stay will remain on problems that need acute care setting for care. We will review available studies and will order additional labs, imaging and other studies as appropriate. As needed medicines are ordered as appropriate. VTE Prophylaxis will be ordered as appropriate. Please see above for management plan for individual hospital problems. Home medications are reviewed and will be continued as appropriate. Patient will be continued to be followed during this hospital stay by a member of [facility]. Past Medical History Past Medical History: Diagnosis Date Aneurysm Atrial fibrillation ([facility]/HCC) Cancer ([facility]/HCC) COPD (chronic obstructive pulmonary disease) ([facility]/HCC) Prostate cancer ([facility]/HCC) Past Surgical History Past Surgical History: Procedure Laterality Date TOTAL HIP ARTHROPLASTY Left TOTAL HIP ARTHROPLASTY Right Social History Social History Socioeconomic History Marital status: Spouse name: Not on file Number of children: Not on file Years of education: Not on file Highest education level: Not on file Occupational History Not on file Tobacco Use Smoking status: Former Types: Cigarettes Smokeless tobacco: Never (more content not included)... [facility] 04-05-2025 Note Patient: Mateo Stearns Procedure Information Date/Time: 04/05/25 0900 Procedure: Coronary angiography (Left) Location: [facility] / [facility] (Cath) Providers: Rene Fajardo MD Clinical information reviewed: Allergies Meds Physical Exam Airway Mallampati: III TM distance: >3 FB Neck ROM: full Cardiovascular Rhythm: regular Rate: normal Dental Pulmonary Breath sounds clear to auscultation Abdominal Anesthesia Plan ASA 3 other (Conscious sedation.) Anesthetic plan and risks discussed with patient. Use of blood products discussed with patient who consented to blood products. Additional Equipment Requests [facility] 03-26-2025 Instructions Formatting of th is note might be different from the original. Your surgery/procedure is scheduled at [facility] on 04/09/2025 at 1000 Arrival Time 0800 [facility] Address: [address] [place] [address] in [address]ing lot located on [facility]. Report to the Entrance B. Check in at the information desk the surgery. The waiting room located on the second floor. If you have any questions prior to surgery, please call Pre-Admission Clinic at [phone] between 7:30 am and 4:30 pm Tuesday through Tuesday. If you have questions the morning of surgery, please call the Pre-op Department at [phone]. Notify your SURGEON if you develop any illness such as a cold, cough, fever, sore throat, vomiting or are hospitalized between now and your surgery. Medication Instructions (Do not stop your medications without consulting the prescribing physician). Take the following medications the morning of surgery with a sip of water: per surgeon Diabetic or Weight loss medications: HOLD Na LAST DOSE Na Take inhalers as prescribed the morning of surgery. Due to the risk associated with these medications. If these medications are not held per instruction below, your surgery is at an increased risk for cancellation. SGLT2 Medications- Hold 3 days prior to surgery: Jardiance, Empagliflozin, Farxiga, Dapagliflozin, Invokana, Canagliflozin, Trijardy, Synjardy GLP-1 Medications (Injection or Pill)- If taken daily hold day of surgery. If taken weekly, hold 1 week prior to surgery: Adlyxin, Byetta, Bydureon, Ozempic, Rybelsus,Trulicity, Victoza, Wegovy, Lixisenatide, Exenatide, Semaglutide, Dulaglutide, Liraglutide GIP/GLP-1(Injection or Pill)- If taken daily hold day of surgery. If taken weekly, hold 1 week prior to surgery: Mounjaro . Blood thinners: Please contact your prescribing physician regarding a stop/hold date for these medications. Medications such as Coumadin, Heparin, Aspirin, Plavix, Eliquis, Pradaxa Diabetics: If you take insulin, contact your prescribing doctor for instructions on how to manage this the night before and the morning of surgery. Non-steriodal Anti-Inflammatory Drugs (NSAIDS)- Hold 3 days prior to surgery unless otherwise directed by your surgeon. Vitamins/Herbal Products: You may continue to take your prescribed vitamins such as potassium, iron, vitamin B, vitamin C, or multivitamin unless specifically instructed by your surgeon to hold. STOP taking all herbal products/teas one week prior to your surgery. Marijuana: Stop marijuana 72 hours prior to surgery, stop CBD oil 48 hours prior to surgery. If you have been given bowel prep instructions by your surgeon, please call the surgeon's office with any questions about these instructions. What do I do the day of Surgery? Age 2 through adult - Stop all solids by midnight, You may have clear liquids up to 2 hours before surgery, unless otherwise instructed by your surgeon. Clear liquids are: water, sports drinks such as Gatorade or G2, or apple juice. You may NOT have: tube feedings, dairy products, alcoholic beverages, orange juice, or any liquids with solids or pulp in it. If applicable, shower again with CHG soap the morning of your surgery. In order to help prevent infection post-operatively, you may be asked to use a CHG mouthwash when you arrive to the Pre-op area. Your nurse will provide instruction the morning of. What do I need to do to prepare for surgery? If you will be going home the same day as your surgery, arrange for an adult over [address] Riding in a bus or taxi by yourself is not permitted. You should not smoke or drink alcohol 24 hours before your surgery. Alcohol thins the blood and may cause bleeding problems during surgery. Smoking increases the risk of breathing problems after surgery. Do not use lotions, creams, powders, perfume, make up, cologne or after-shaves day of surgery. Remove ALL jewelry including wedding rings, body piercings (including dermal piercing's, hair extensions that contain metal, nail singaporean, make-up, and contact lens. You may brush your teeth the morning of surgery, but do not swallow the water. Wear your dentures and partial plates to the hospital (no adhesive). Shower the night the before. If applicable, use the CHG (chlorhexidine gluconate) soap or wipes. Place clean linens on your bed after showering. Do not allow pets to sleep in your bed What should I bring to the hospital? Eyeglass or contact lens case If you will be spending the night, please bring personal care items and leave them in the car until you are taken to your room after surgery. Leave ALL valuables at home. If any of these instructions conflict with those you received from the surgeon, please seek clarification from your surgeon's office. DEEP BREATHING EXERCISES This exercise helps promote good air exchange and helps to prevent pneumonia after surgery. Breathe in slowly and deeply through the nose. Hold your breath for a few seconds and then exhale slowly through the mouth. Repeat this three times and then cough.Coughing helps to clear your lungs. If you have had a surgery with an incision into your abdomen or chest, press gently against your incision with a pillow or a folded blanket when you cough. Please be aware - it may not be sinha to cough following some types of surgeries involving the eyes, ears, sinuses and throat. Always follow your doctor's instructions. LEG EXERCISE These exercises help promote good circulation and help to prevent blood clots after surgery. Point your toes to the ceiling and then point them to the wall. Do this slowly about 15-20 times. You may also move your feet in circles. Do the exercise that is most comfortable for you. If you have had surgery involving your shoulder or arm, we recommend you move your fingers. PRACTICING We ask that you begin practicing these exercises before your surgery. After surgery try to do both exercises at least every 2 hours during the day and early evening. Surgical Site Infection Prevention What is a Surgical Site Infection (SSI)? Infection can happen to the area of the body where surgery is done. This is called a surgical site infection (SSI). A SSI does not happen very often. What are some of the things that hospitals are doing to prevent SSIs? Soap and water or alcohol hand rub are used before and after caring for each patient. Special soap is used to clean surgery workers hands and arms just before the surgery. Masks, gowns, gloves and hair covers are worn during the surgery to keep the area clean. Hair in the surgery area may be removed with clippers (not razors). A special soap that kills germs is used to clean the skin at the surgery site. Antibiotics may be given before the surgery starts. What can you do to prevent SSIs? Before surgery: You may be asked to shower or bathe with a special soap that kills germs the night before and the day of surgery. Use the soap as you were told. Place clean sheets on your bed the night before surgery and do not allow your pets in your bed. If you smoke or vape, stop or cut down. This creates a stress response in your body that increases inflammation, constricts blood vessels and deprives your tissues of oxygen. After surgery, this stress response disrupts the travel of oxygen, nutrients, and blood to your surgical site, interfering with the wound healing process. It also decreases the ability of your cells to fight infection. Ask your doctor about ways to quit. If you have high blood sugars or diabetes please talk with your doctor about having healthy blood sugar levels to promote healing. Do not shave near where you will have surgery. Shaving can irritate the skin and make it easier to get and infection. After surgery: Be sure that the doctors and nurses clean their hands before and after touching you. Be sure your family and friends clean their hands before and after visiting you. Do not be afraid to remind them. Always wash your hands before touching your incisional area. * Care for your wound at home as told by your doctor or nurse * Call your doctor right away if you have fever, redness, increased pain, or drainage at the surgery site. Can SSIs be treated? Antibiotics are used to treat SSI. Some patients may need another surgery to treat the infection. The doctor will discuss treatment options with you. Further questions? Contact the doctor, nurse or the Infection Prevention and Control department if you have any questions. PATIENT RIGHTS AND RESPONSIBILITIES As a patient at [facility], you have the right to: Receive medical care and be informed of who is taking care of you Be treated with dignity and respect Have a family member/fraud representative of choice and your physician notified of your admission Receive information and actively participate in decisions about your care and treatment Refuse care, treatment and services Decide who may provide your support and speak for you Access methodist and spiritual services Participate in ethical issues and questions about your care Receive private and confidential care Have appropriate assessment and management of your pain Know guest visitation restrictions or limitations Have an advance directive Access protective services Consent or refuse to participate in research studies or production or recordings, films or other images Have resolution of your complaints Receive information of hospital charges and payment methods Patient/patient fraud representative responsibilities are to: Provide information about health status to facilitate care, treatment and services Follow the treatment, plan, keep appointments and speak up when you do not understand the plan Respect the rights of other patients and healthcare personnel Follow organizational rules and regulations that support quality care and a safe environment Fulfill financial obligations as promptly as possible PATIENT RIGHTS AND RESPONSIBILITIES As a patient at [facility], you have the right to: Receive medical care and be informed of who is taking care of you Be treated with dignity and respect Have a family member/fraud representative of choice and your physician notified of your admission Receive information and actively participate in decisions about your care and treatment Refuse care, treatment and services Decide who may provide your support and speak for you Access methodist and spiritual services Participate in ethical issues and questions about your care Receive private and confidential care Have appropriate assessment and management of your pain Know guest visitation restrictions or limitations Have an advance directive Access protective services Consent or refuse to participate in research studies or production or recordings, films or other images Have resolution of your complaints Receive information of hospital charges and payment methods Patient/patient fraud representative responsibilities are to: Provide information about health status to facilitate care, treatment and services Follow the treatment, plan, keep appointments and speak up when you do not understand the plan Respect the rights of other patients and healthcare personnel Follow organizational rules and regulations that support quality care and a safe environment Fulfill financial obligations as promptly as possible Surgical Site Infection Prevention What is a Surgical Site Infection (SSI)? Infection can happen to the area of the body where surgery is done. This is called a surgical site infection (SSI). A SSI does not happen very often, but it is important for the hospital and you to do everything possible to avoid a SSI. What are some of the things that hospitals are doing to prevent SSIs? Soap and water or alcohol hand rub are used before and after caring for each patient. Special soap is used to clean surgery workers hands and arms just before the surgery. Masks, gowns, gloves and hair covers are worn during the surgery to keep the area clean. Hair in the surgery area may be removed with clippers (not razors). A special soap that kills germs is used to clean the skin at the surgery site. Antibiotics may be given before the surgery starts. What can you do to prevent SSIs? Before surgery: You may be asked to shower or bathe with a special soap that kills germs the night before and the day of surgery. Use the soap as you were told. Place clean sheets on your bed the night before surgery and do not allow your pets in your bed. If you smoke or vape, stop or cut down. This creates a stress response in your body that increases inflammation, constricts blood vessels and deprives your tissues of oxygen. After surgery, this stress response disrupts the travel of oxygen, nutrients, and blood to your surgical site, interfering with the wound healing process. It also decreases the ability of your cells to fight infection. Ask your doctor about ways to quit. If you have high blood sugars or diabetes please talk with your doctor about having healthy blood sugar levels to promote healing. Do not shave near where you will have surgery. Shaving can irritate the skin and make it easier to get and infection. After surgery: Be sure that the doctors and nurses clean their hands before and after touching you. Be sure your family and friends clean their hands before and after visiting you. Do not be afraid to remind them. Always wash your hands before touching your incisional area. * Care for your wound at home as told by your doctor or nurse * Call your doctor right away if you have fever, redness, increased pain, or drainage at the surgery site. Can SSIs be treated? Antibiotics are used to treat SSI. Some patients may need another surgery to treat the infection. The doctor will discuss treatment options with you. Further questions? Contact the doctor, nurse or the Infection Prevention and Control department if you have any questions. [facility] 03-26-2025 Miscellaneous Notes Fax sent to [facility] for preop information. A message was left with Shantelle at Dr. Piper's office regarding the type and screen and type and cross ordered and what their plan was for that to be drawn. Faxed preop instructions to nursing facility DOS 04/09/2025 at [facility] with Dr. Piper Faxed preop instructions to nursing facility for DOS 04/09/2024 at [facility] with Dr. Piper Your surgery/procedure is scheduled at [facility] on 04/09/2025 at 1000 Arrival Time 0800 [facility] Address: [address] [place] [address] in [address] Parking lot located on [facility]. Report to the Entrance B. Check in at the information desk the surgery. The waiting room located on the second floor. If you have any questions prior to surgery, please call Pre-Admission Clinic at [phone] between 7:30 am and 4:30 pm Tuesday through Tuesday. If you have questions the morning of surgery, please call the Pre-op Department at [phone]. Notify your SURGEON if you develop any illness such as a cold, cough, fever, sore throat, vomiting or are hospitalized between now and your surgery. Medication Instructions (Do not stop your medications without consulting the prescribing physician). Take the following medications the morning of surgery with a sip of water: per surgeon Diabetic or Weight loss medications: HOLD Na LAST DOSE Na Take inhalers as prescribed the morning of surgery. Due to the risk associated with these medications. If these medications are not held per instruction below, your surgery is at an increased risk for cancellation. SGLT2 Medications- Hold 3 days prior to surgery: Jardiance, Empagliflozin, Farxiga, Dapagliflozin, Invokana, Canagliflozin, Trijardy, Synjardy GLP-1 Medications (Injection or Pill)- If taken daily hold day of surgery. If taken weekly, hold 1 week prior to surgery: Adlyxin, Byetta, Bydureon, Ozempic, Rybelsus,Trulicity, Victoza, Wegovy, Lixisenatide, Exenatide, Semaglutide, Dulaglutide, Liraglutide GIP/GLP-1(Injection or Pill)- If taken daily hold day of surgery. If taken weekly, hold 1 week prior to surgery: Mounjaro . Blood thinners: Please contact your prescribing physician regarding a stop/hold date for these medications. Medications such as Coumadin, Heparin, Aspirin, Plavix, Eliquis, Pradaxa Diabetics: If you take insulin, contact your prescribing doctor for instructions on how to manage this the night before and the morning of surgery. Non-steriodal Anti-Inflammatory Drugs (NSAIDS)- Hold 3 days prior to surgery unless otherwise directed by your surgeon. Vitamins/Herbal Products: You may continue to take your prescribed vitamins such as potassium, iron, vitamin B, vitamin C, or multivitamin unless specifically instructed by your surgeon to hold. STOP taking all herbal products/teas one week prior to your surgery. Marijuana: Stop marijuana 72 hours prior to surgery, stop CBD oil 48 hours prior to surgery. If you have been given bowel prep instructions by your surgeon, please call the surgeon's office with any questions about these instructions. What do I do the day of Surgery? Age 2 through adult - Stop all solids by midnight, You may have clear liquids up to 2 hours before surgery, unless otherwise instructed by your surgeon. Clear liquids are: water, sports drinks such as Gatorade or G2, or apple juice. You may NOT have: tube feedings, dairy products, alcoholic beverages, orange juice, or any liquids with solids or pulp in it. If applicable, shower again with CHG soap the morning of your surgery. In order to help prevent infection post-operatively, you may be asked to use a CHG mouthwash when you arrive to the Pre-op area. Your nurse will provide instruction the morning of. What do I need to do to prepare for surgery? If you will be going home the same day as your surgery, arrange for an adult over [address] Riding in a bus or taxi by yourself is not permitted. You should not smoke or drink alcohol 24 hours before your surgery. Alcohol thins the blood and may cause bleeding problems during surgery. Smoking increases the risk of breathing problems after surgery. Do not use lotions, creams, powders, perfume, make up, cologne or after-shaves day of surgery. Remove ALL jewelry including wedding rings, body piercings (including dermal piercing's, hair extensions that contain metal, nail singaporean, make-up, and contact lens. You may brush your teeth the morning of surgery, but do not swallow the water. Wear your dentures and partial plates to the hospital (no adhesive). Shower the night the before. If applicable, use the CHG (chlorhexidine gluconate) soap or wipes. Place clean linens on your bed after showering. Do not allow pets to sleep in your bed What should I bring to the hospital? Eyeglass or contact lens case If you will be spending the night, please bring personal care items and leave them in the car until you are taken to your room after surgery. Leave ALL valuables at home. If any of these instructions conflict with those you received from the surgeon, please seek clarification from your surgeon's office. DEEP BREATHING EXERCISES This exercise helps promote good air exchange and helps to prevent pneumonia after surgery. Breathe in slowly and deeply through the nose. Hold your breath for a few seconds and then exhale slowly through the mouth. Repeat this three times and then cough.Coughing helps to clear your lungs. If you have had a surgery with an incision into your abdomen or chest, press gently against your incision with a pillow or a folded blanket when you cough. Please be aware - it may not be sinha to cough following some types of surgeries involving the eyes, ears, sinuses and throat. Always follow your doctor's instructions. LEG EXERCISE These exercises help promote good circulation and help to prevent blood clots after surgery. Point your toes to the ceiling and then point them to the wall. Do this slowly about 15-20 times. You may also move your feet in circles. Do the exercise that is most comfortable for you. If you have had surgery involving your shoulder or arm, we recommend you move your fingers. PRACTICING We ask that you begin practicing these exercises before your surgery. After surgery try to do both exercises at least every 2 hours during the day and early evening. Surgical Site Infection Prevention What is a Surgical Site Infection (SSI)? Infection can happen to the area of the body where surgery is done. This is called a surgical site infection (SSI). A SSI does not happen very often. What are some of the things that hospitals are doing to prevent SSIs? Soap and water or alcohol hand rub are used before and after caring for each patient. Special soap is used to clean surgery workers hands and arms just before the surgery. Masks, gowns, gloves and hair covers are worn during the surgery to keep the area clean. Hair in the surgery area may be removed with clippers (not razors). A special soap that kills germs is used to clean the skin at the surgery site. Antibiotics may be given before the surgery starts. What can you do to prevent SSIs? Before surgery: You may be asked to shower or bathe with a special soap that kills germs the night before and the day of surgery. Use the soap as you were told. Place clean sheets on your bed the night before surgery and do not allow your pets in your bed. If you smoke or vape, stop or cut down. This creates a stress response in your body that increases inflammation, constricts blood vessels and deprives your tissues of oxygen. After surgery, this stress response disrupts the travel of oxygen, nutrients, and blood to your surgical site, interfering with the wound healing process. It also decreases the ability of your cells to fight infection. Ask your doctor about ways to quit. If you have high blood sugars or diabetes please talk with your doctor about having healthy blood sugar levels to promote healing. Do not shave near where you will have surgery. Shaving can irritate the skin and make it easier to get and infection. After surgery: Be sure that the doctors and nurses clean their hands before and after touching you. Be sure your family and friends clean their hands before and after visiting you. Do not be afraid to remind them. Always wash your hands before touching your incisional area. * Care for your wound at home as told by your doctor or nurse * Call your doctor right away if you have fever, redness, increased pain, or drainage at the surgery site. Can SSIs be treated? Antibiotics are used to treat SSI. Some patients may need another surgery to treat the infection. The doctor will discuss treatment options with you. Further questions? Contact the doctor, nurse or the Infection Prevention and Control department if you have any questions. PATIENT RIGHTS AND RESPONSIBILITIES As a patient at [facility], you have the right to: Receive medical care and be informed of who is taking care of you Be treated with dignity and respect Have a family member/fraud representative of choice and your physician notified of your admission Receive information and actively participate in decisions about your care and treatment Refuse care, treatment and services Decide who may provide your support and speak for you Access methodist and spiritual services Participate in ethical issues and questions about your care Receive private and confidential care Have appropriate assessment and management of your pain Know guest visitation restrictions or limitations Have an advance directive Access protective services Consent or refuse to participate in research studies or production or recordings, films or other images Have resolution of your complaints Receive information of hospital charges and payment methods Patient/patient fraud representative responsibilities are to: Provide information about health status to facilitate care, treatment and services Follow the treatment, plan, keep appointments and speak up when you do not understand the plan Respect the rights of other patients and healthcare personnel Follow organizational rules and regulations that support quality care and a safe environment Fulfill financial obligations as promptly as possible PATIENT RIGHTS AND RESPONSIBILITIES As a patient at [facility], you have the right to: Receive medical care and be informed of who is taking care of you Be treated with dignity and respect Have a family member/fraud representative of choice and your physician notified of your admission Receive information and actively participate in decisions about your care and treatment Refuse care, treatment and services Decide who may provide your support and speak for you Access methodist and spiritual services Participate in ethical issues and questions about your care Receive private and confidential care Have appropriate assessment and management of your pain Know guest visitation restrictions or limitations Have an advance directive Access protective services Consent or refuse to participate in research studies or production or recordings, films or other images Have resolution of your complaints Receive information of hospital charges and payment methods Patient/patient fraud representative responsibilities are to: Provide information about health status to facilitate care, treatment and services Follow the treatment, plan, keep appointments and speak up when you do not understand the plan Respect the rights of other patients and healthcare personnel Follow organizational rules and regulations that support quality care and a safe environment Fulfill financial obligations as promptly as possible Surgical Site Infection Prevention What is a Surgical Site Infection (SSI)? Infection can happen to the area of the body where surgery is done. This is called a surgical site infection (SSI). A SSI does not happen very often, but it is important for the hospital and you to do everything possible to avoid a SSI. What are some of the things that hospitals are doing to prevent SSIs? Soap and water or alcohol hand rub are used before and after caring for each patient. Special soap is used to clean surgery workers hands and arms just before the surgery. Masks, gowns, gloves and hair covers are worn during the surgery to keep the area clean. Hair in the surgery area may be removed with clippers (not razors). A special soap that kills germs is used to clean the skin at the surgery site. Antibiotics may be given before the surgery starts. What can you do to prevent SSIs? Before surgery: You may be asked to shower or bathe with a special soap that kills germs the night before and the day of surgery. Use the soap as you were told. Place clean sheets on your bed the night before surgery and do not allow your pets in your bed. If you smoke or vape, stop or cut down. This creates a stress response in your body that increases inflammation, constricts blood vessels and deprives your tissues of oxygen. After surgery, this stress response disrupts the travel of oxygen, nutrients, and blood to your surgical site, interfering with the wound healing process. It also decreases the ability of your cells to fight infection. Ask your doctor about ways to quit. If you have high blood sugars or diabetes please talk with your doctor about having healthy blood sugar levels to promote healing. Do not shave near where you will have surgery. Shaving can irritate the skin and make it easier to get and infection. After surgery: Be sure that the doctors and nurses clean their hands before and after touching you. Be sure your family and friends clean their hands before and after visiting you. Do not be afraid to remind them. Always wash your hands before touching your incisional area. * Care for your wound at home as told by your doctor or nurse * Call your doctor right away if you have fever, redness, increased pain, or drainage at the surgery site. Can SSIs be treated? Antibiotics are used to treat SSI. Some patients may need another surgery to treat the infection. The doctor will discuss treatment options with you. Further questions? Contact the doctor, nurse or the Infection Prevention and Control department if you have any questions. documented in this encounter [facility] 03-26-2025 Nurse Note Fax sent to [facility] for preop information. A message was left with Shantelle at Dr. Piper's office regarding the type and screen and type and cross ordered and what their plan was for that to be drawn. [facility] 03-26-2025 Nurse Note Faxed preop instructions to nursing facility DOS 04/09/2025 at [facility] with Dr. Piper [facility] 03-26-2025 Nurse Note Faxed preop instructions to nursing facility for DOS 04/09/2024 at [facility] with Dr. Piper [facility] 03-15-2025 Note [facility] Subjective Mateo Stearns is a 64 y.o. year old male patient being seen for surgery clearence for AAA. Patient denies chest pain, palpitations or leg swelling. C/O SOB. Patient states he has had previous A-Fib. Patient Active Problem List Diagnosis Abdominal aortic aneurysm (AAA) without rupture Age-related nuclear cataract of both eyes Alcoholism (CMS/HCC) Anxiety disorder, unspecified Arthritis Atherosclerosis of aorta Carpal tunnel syndrome of right wrist Centrilobular emphysema (CMS/HCC) Chronic GERD Chronic respiratory failure with hypoxia (CMS/HCC) COPD (chronic obstructive pulmonary disease) (CMS/HCC) DDD (degenerative disc disease), cervical Gout, unspecified Imbalance Lobular atelectasis Lumbar radiculopathy Lung mass Marijuana smoker Mixed hyperlipidemia Neuropathy Other chronic pain Other thrombophilia Paroxysmal atrial fibrillation (CMS/HCC) Penetrating atherosclerotic 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 Prostate cancer (CMS/HCC) Encounter for subsequent annual wellness visit (AWV) in Medicare patient Scrotal cyst Sebaceous cyst Thoracic aortic aneurysm, without rupture, unspecified Tobacco abuse Cellulitis of left lower limb Difficulty walking Nausea Family History Problem Relation Name Age of Onset Emphysema Father Accidental Sister Social History Tobacco Use Smoking status: Former Types: Cigarettes Smokeless tobacco: Never Substance Use Topics Alcohol use: Not Currently Comment: former Drug use: Never HUMBERTO Mateo is seen as a new patient for preoperative evaluation for vascular surgery. He is a 64-year-old man with penetrating thoracic aortic ulcer. He is planned for endovascular repair by Dr. Sadie Piper at [facility] vascular. Prior medical history is significant for COPD, emphysema [Was admitted with pneumonia to the [facility] in December 2024] and atrial fibrillation. In addition he has a recent hip fracture being treated conservatively. he is currently maintained on oxygen therapy all the time for his COPD. He has constant shortness of breath with exertion. No significant lower extremity edema. He denies chest pain. Atrial fibrillation appears to be a remote history 8 years ago without any clear clinical evidence of recurrence. He is currently maintained on aspirin 81 mg daily and diltiazem. He has extensive ecchymosis and bruising in the upper extremities. Review of Systems Respiratory: Positive for shortness of breath. Objective Visit Vitals BP 115/75 (BP Location: Right arm, Patient Position: Sitting) Pulse 99 Ht 1.702 m (5' 7 ) Wt 57.6 kg (127 lb) SpO2 93% BMI 19.89 kg/m??? Smoking Status Former BSA 1.65 m??? Physical Exam Constitutional: Appearance: He is well-developed. He is not ill-appearing. Comments: using oxygen by nasal prongs HENT: Head: Normocephalic and atraumatic. Nose: Nose normal. Eyes: General: No scleral icterus. Pupils: Pupils are equal, round, and reactive to light. Neck: Thyroid: No thyromegaly. Vascular: No JVD. Cardiovascular: Rate and Rhythm: Normal rate and regular rhythm. Pulses: Radial pulses are 2+ on the right side and 2+ on the left side. Heart sounds: Normal heart sounds. No murmur heard. No friction rub. No gallop. Pulmonary: Effort: Pulmonary effort is normal. No respiratory distress. Breath sounds: Normal breath sounds. No wheezing or rales. Chest: Chest wall: No tenderness. Abdominal: General: Bowel sounds are normal. There is no distension. Palpations: Abdomen is soft. Tenderness: There is no abdominal tenderness. Musculoskeletal: General: No swelling. Cervical back: Neck supple. Comments: In wheelchair Skin: General: Skin is warm and dry. Findings: Ecchymosis (upper extremities) present. Neurological: General: No focal deficit present. Mental Status: He is alert and oriented to person, place, and time. Psychiatric: Mood and Affect: Mood normal. Behavior: Behavior is cooperative. Judgment: Judgment normal. Allergies No Known Allergies Medications Current Outpatient Medications: albuterol 2.5 mg /3 mL (0.083 %) nebulizer solution, 2.5 mg every 4 (four) hours if needed., Disp: , Rfl: albuterol 90 mcg/actuation inhaler, Inhale 2 puffs every 4 (four) hours if needed., Disp: , Rfl: aspirin 81 mg EC tablet, Take 81 mg by mouth in the morning., Disp: , Rfl: budesonide-formoteroL (Symbicort) 160-4.5 mcg/actuation inhaler, Inhale 2 puffs twice a day., Disp: , Rfl: calcium carbonate-vitamin D3 (Os-Juan 500 + D3) 500 mg-5 mcg (200 unit) tablet, Take 1 tablet by mouth twice a day., Disp: , Rfl: cefdinir (Omnicef) 300 mg capsule, Take 300 mg by mouth two times daily., Disp: , Rfl: cycloSPORINE (Restasis) 0.05 % ophthalmic emulsion, Administer 1 drop into affected eye(s) every 12 (twelve) hours., Disp: , Rfl: dilT (more content not included)... [facility] 03-07-2025 Evaluation + Plan note Associated Problem(s): Penetrating atherosclerotic ulcer of aorta He has 2 ulcers small 1 in the visceral segment in the abdomen and 1 in the thoracic aorta just distal to the subclavian. The thoracic ulcer is large. I discussed with him endovascular repair. Discussed risk of stroke and spinal cord ischemia. Discussed alternatives risk benefits of each. We will plan on TEVAR with cardiac risk stratification first [facility] 03-07-2025 Miscellaneous Notes Associated Problem(s): Penetrating atherosclerotic ulcer of aorta He has 2 ulcers small 1 in the visceral segment in the abdomen and 1 in the thoracic aorta just distal to the subclavian. The thoracic ulcer is large. I discussed with him endovascular repair. Discussed risk of stroke and spinal cord ischemia. Discussed alternatives risk benefits of each. We will plan on TEVAR with cardiac risk stratification first documented in this encounter [facility] 03-07-2025 History of Presen t illness Narrative Images from the original note were not included. To: DIANA BUSH MD HPI: Mateo Stearns is a 64 y.o. male with Penetrating thoracic aortic ulcer. He has 1 in the chest and 1 in the abdomen. I reviewed the CT images and discussed it with him. I also discussed the CT images centerline measurements and 3D reconstruction. We discussed cardiac risk stratification before the procedure. Of note he has a recent femur fracture that is being treated conservatively. Review of Systems: Review of Systems Constitutional: Negative. HENT: Negative. Respiratory: Negative. Cardiovascular: Negative. Gastrointestinal: Negative. Endocrine: Negative. Genitourinary: Negative. Musculoskeletal: Negative. Skin: Negative. Neurological: Negative. Hematological: Negative. Medications: Current Outpatient Medications on File Prior to Visit Medication Sig Dispense Refill albuterol (PROVENTIL HFA;VENTOLIN HFA) 90 mcg/actuation inhaler Inhale 2 puffs every 6 (six) hours as needed for wheezing. aspirin 81 mg Take 1 tablet (81 mg total) by mouth in the morning. 3 budesonide/formoterol fumarate (SYMBICORT INHL) Inhale. cefDINIR (OMNICEF) 300 mg capsule Take 1 capsule (300 mg total) by mouth in the morning and 1 capsule (300 mg total) before bedtime. cycloSPORINE (RESTASIS) 0.05 % ophthalmic emulsion Administer 1 drop to both eyes every 12 (twelve) hours. diltiazem XR (DILACOR XR) 180 MG 24 hr capsule Take 1 capsule (180 mg total) by mouth in the morning. docusate sodium (COLACE) 100 mg capsule Take 1 capsule (100 mg total) by mouth in the morning and 1 capsule (100 mg total) before bedtime. hydrOXYzine (ATARAX) 25 mg tablet Take 1 tablet (25 mg total) by mouth every 8 (eight) hours as needed for anxiety. ibuprofen (MOTRIN) 800 mg tablet Take 1 tablet (800 mg total) by mouth 3 (three) times a day. melatonin 5 mg tablet,chewable Chew 2 tablets and swallow nightly. metoclopramide (REGLAN) 10 mg tablet Take 1 tablet (10 mg total) by mouth 3 (three) times a day. pantoprazole (PROTONIX) 40 mg EC tablet Take 1 tablet (40 mg total) by mouth in the morning. 2 REMERON 15 mg tablet Take 1 tablet (15 mg total) by mouth nightly. ROFLUMILAST ORAL Take 500 mcg by mouth in the morning. benzocaine (BOIL RELIEF) 20 % ointment Apply 1 application topically 2 (two) times a day. left buttock (Patient not taking: Reported on 03/07/2025) DALIRESP 500 mcg tablet Take 500 mcg by mouth daily. (Patient not taking: Reported on 03/07/2025) 0 DHEA 50 mg capsule Take 2 capsules by mouth daily. (Patient not taking: Reported on 03/07/2025) 5 DULERA 200-5 mcg/actuation inhaler INHALE 2 PUFFS BY MOUTH TWICE A DAY *RINSE MOUTH AFTER USE* (Patient not taking: Reported on 03/07/2025) 5 fentaNYL (DURAGESIC) 12 mcg/hr Place 1 patch on the skin every 3 (three) days. (Patient not taking: Reported on 03/07/2025) fluticasone-vilanterol (BREO ELLIPTA) 100-25 mcg/dose blister with device Inhale 1 puff daily. (Patient not taking: Reported on 03/07/2025) iron ps pnjjfpj-[id number]-dmcnq acid (NIFEREX FORTE) 150-25-1 mg-mcg-mg capsule Take 1 capsule by mouth daily. (Patient not taking: Reported on 03/07/2025) OS-JUAN 500 + D3 500 mg(1,250mg) -200 unit per tablet Take 1 tablet by mouth 2 (two) times a day. (Patient not taking: Reported on 03/07/2025) 5 rivaroxaban (XARELTO) 10 mg tablet Take 10 mg by mouth daily. (Patient not taking: Reported on 03/07/2025) sodium,potassium,mag sulfates (SUPREP BOWEL PREP KIT) 17.5-3.13-1.6 gram recon soln 177 ml,actual weight, 2 times daily, Oral (Patient not taking: Reported on 03/07/2025) 1 kit 0 tiotropium (SPIRIVA) 18 mcg per inhalation capsule Place 1 capsule into inhaler and inhale once daily. 2.5 mcg per actuation (Patient not taking: Reported on 03/07/2025) No current facility-administered medications on file prior to visit. Past Medical History: Past Medical History: Diagnosis Date Anxiety Arthritis Atrial fibrillation ([facility]) COPD (chronic obstructive pulmonary disease) ([facility]) Emphysema of lung ([facility]) Visual impairment glasses Past Surgical History: Past Surgical History: Procedure Laterality Date CARPAL TUNNEL RELEASE Left FOOT FUSION Right shattered heel JOINT REPLACEMENT right hip REPLACEMENT TOTAL JOINT HIP Left 11/15/2017 Performed by Jr Rene Rosenbaum DO at [facility] Social and Family History: Social History Socioeconomic [...] of Health Financial Resource Strain: Low Risk (02/28/2024) Received from [facility] Overall Financial Resource Strain (CARDIA) Difficulty of Paying Living Expenses: Not very hard Food Insecurity: No Food Insecurity (03/07/2025) Hunger Screening Food Insecurity - Worry: Never True Food Insecurity - Inability: Never True Transportation Needs: No Transportation Needs (02/28/2024) Received from [facility] PRAPARE - Transportation Lack of Transportation (Medical): No Lack of Transportation (Non-Medical): No Physical Activity: Inactive (02/28/2024) Received from [facility] Exercise Vital Sign Days of Exercise per Week: 0 days Minutes of Exercise per Session: 0 min Stress: No Stress Concern Present (02/28/2024) Received from [facility] [place] of Occupational Health - Occupational Stress Questionnaire Feeling of Stress : Only a little Social Connections: Moderately Isolated (02/28/2024) Received from [facility] Social Connection and Isolation Panel [NHANES] Frequency of Communication with Friends and Family: Three times a week Frequency of Social Gatherings with Friends and Family: Never Attends [employer] Services: Never Active Member of Clubs or Organizations: Yes Attends Club or Organization Meetings: Never Marital Status: Interpersonal Safety: Not At Risk (02/28/2024) Received from [facility] Humiliation, Afraid, Rape, and Kick questionnaire Fear of Current or Ex-Partner: No Emotionally Abused: No Physically Abused: No Sexually Abused: No Housing Instability: Low Risk (02/28/2024) Received from [facility] Housing Stability Vital Sign Unable to Pay for Housing in the Last Year: No Number of Places Lived in the Last Year: 1 Unstable Housing in the Last Year: No Family History Problem Relation Age of Onset Heart disease Mother COPD Father Heart disease Father Recent Labs: Recent and relative labs were reviewed and interpreted and contributed to the assessment and plan below. Vitals: BP 126/62 (BP Site: Right Arm, BP Postition: Sitting, BP CUFF SIZE: M (9-13 inches)) Pulse 80 Comment: irregular Temp 36.5 C (97.7 F) Ht 170.2 cm (5' 7 ) Wt 57.6 kg (127 lb) SpO2 97% PF (!) 3 L/min BMI 19.89 kg/m Body mass index is 19.89 kg/m . Physical Exam: Physical Exam Constitutional: Appearance: Normal [...] content normal. Judgment: Judgment normal. Recent testing: CT scan of the chest abdomen pelvis Assessment and Plan: Problem List Penetrating atherosclerotic ulcer of aorta - Primary Current Assessment & Plan He has 2 ulcers small 1 in the visceral segment in the abdomen and 1 in the thoracic aorta just distal to the subclavian. The thoracic ulcer is large. I discussed with him endovascular repair. Discussed risk of stroke and spinal cord ischemia. Discussed alternatives risk benefits of each. Mateo was seen today for post-op aneurysm repair. Diagnoses and all orders for this visit: Penetrating atherosclerotic ulcer of aorta Sadie Piper MD, CELSO, RPVI, FSVS, FACS [facility] This note was created with the assistance of a speech recognition program. While intending to generate a timely document that accurately reflects the content of the visit, no guarantee can be provided that every grammatical or spelling mistake has been or will be identified or corrected. Thank you for your understanding. documented in this encounter [facility] 02-25-2025 Note Gram Stain Evaluation This specimen is of good quality and is acceptable for routine [facility] 02-25-2025 Note [facility] GRAM STAIN EVALUATION bacterial culture. [facility] 02-22-2025 Telephone encounter Note Who is prescribing him reglan and for what reason? Maybe from the cancer doctor??? I am not sure who or why he is getting it. Can you find out a little more about that?? [place] [facility] 02-22-2025 Miscellaneous Notes Who is prescribing him reglan and for what reason? Maybe from the cancer doctor??? I am not sure who or why he is getting it. Can you find out a little more about that?? AVI documented in this encounter [facility] 01-02-2025 History of Present illness Narrative Images [...] Medications (Ophthalmic Agents) Medication Sig Dispense Refill Ktyjykvhikd-Onuxfjkh-Vlyeprucb 1-0.5-0.075 % solution Administer 1 drop into [...] Do not crush, chew, or split.. HYDROcodone-acetaminophen (Marion) 5-325 MG tablet pantoprazole (ProtoNix) 40 MG [...] (Other) Past Medical History: Diagnosis Date Alcoholism ([facility]) Atrial fibrillation ([facility]) Azygos lobe Carpal tunnel syndrome, bilateral Centrilobular emphysema ([facility]) Chronic GERD 12/06/2023 Chronic hypoxemic respiratory failure ([facility]) Chronic lumbar radiculopathy Collapse of left lung 2015 (L) LUNG COLLAPSE / CHEST TUBE COPD (chronic obstructive pulmonary disease) ([facility]) 2016 COPD / IMFLAMMATION OF LUNG DENIES BLOODBORNE DISEASES Elevated PSA Gout, arthritis History of pneumothorax History of tobacco abuse Hyperlipidemia ([facility]) Lobular atelectasis Neuropathy Prostate cancer ([facility]) Right lower lobe [...] @ 11:08 AM Additional Tests Keratometry K1 Sherwood K2 Sherwood Right 42.25 2 43.50 92 Left 42.00 [...] +1.50 Type: OTC Manifest Refraction Sphere Cylinder Sherwood Right Left +3.50 -2.00 094 Final Rx [...] different lens options were explained including the [id number] fees for any upgrades. Intraocular lens (IOL) [...] 02/25. documented in this encounter [facility] 12-12-2024 History of Present illness Narrative Radiation Oncology - Follow Up Note PATIENT NAME: Mateo Stearns PATIENT DIAGNOSIS: Prostate adenocarcinoma, initial PSA 4.46, biopsy Alfred score 3 + 3 = 6 (grade [...] by mouth. REVIEW OF SYSTEMS: D/N = 4-6 Hematuria: none Dysuria: none Incontinence: none Urgency: [...] by: Severo Dent MD cc: Kathie Sánchez, MANAGER TECHNICAL TRAINING ([facility]) [address] [place] [address] No referring provider defined for this encounter. AUA 2 Mona Melvin RN documented in this encounter [facility] 11-26-2024 Note HNO ID: [id number] Author: UMU NICOLAS LSW Service: ? Author Type: Veterinary Pathologist Type: Progress Notes Filed: 11/26/2024 13:09 Note Text: SOCIAL WORK FOLLOW UP NOTE: [facility] Date of service:11/26/24 TOPICS ADDRESSED: community resources PLAN: Continue follow up as needed Assigned SW listed in Care Team tab: Yes SW completed and faxed October 2024 mileage reimbursement log to [facility]. SUSANNA Sotomayor [facility] 11-26-2024 History of Present illness Narrative SOCIAL WORK FOLLOW UP NOTE: [facility] Date of service:11/26/24 TOPICS ADDRESSED: community resources PLAN: Continue follow up as needed Assigned SW listed in Care Team tab: Yes SW completed and faxed October 2024 mileage reimbursement log to [facility]. SUSANNA Sotomayor documented in this encounter [facility] 11-02-2024 Note HNO ID: [id number] Author: Severo DENT MD Service: ? Author [...] well. Follow-up as scheduled. Severo Dent MD [facility] 11-02-2024 History of Present illness Narrative Radiation Oncology - On Treatment Review (OTR) Note PATIENT NAME: Mateo Stearns PATIENT DIAGNOSIS: Prostate adenocarcinoma, initial PSA 4.46, biopsy Alfred score 3 + 3 = 6 (grade [...] Severo Dent MD documented in this encounter [facility] 11-02-2024 History of Present illness Narrative [facility] Radiation Oncology Department RADIATION ONCOLOGY [...] KAYA :37 PM documented in this encounter [facility] 11-02-2024 Note HNO ID: [id number] Author: Severo DENT MD Service: ? Author Type: Physician Type: Progress Notes Filed: 11/08/2024 14:37 Note Text: [facility] Radiation Oncology Department RADIATION ONCOLOGY - COMPLETION NOTE PATIENT: MATEO STEARNS: 1960 DATES OF TREATMENT: 09/25/24 - 11/02/24 DIAGNOSIS: Prostate adenocarcinoma, initial PSA 4.46, biopsy Alfred score 3 + 3 = 6 (grade [...] PM Electronically Signed cc: PROMISE Gil Dr. [facility] 10-29-2024 Note HNO ID: [id number] Author: Severo DENT MD Service: ? Author Type: Physician Type: Progress Notes Filed: 10/29/2024 10:54 Note Text: Radiation Oncology - On Treatment Review (OTR) Note PATIENT NAME: Mateo Stearns PATIENT DIAGNOSIS: Prostate adenocarcinoma, initial PSA 4.46, biopsy Alfred score 3 + 3 = 6 (grade [...] week. Follow-up care discussed. Severo Dent MD [facility] 10-29-2024 History of Present illness Narrative Radiation [...] Severo Dent MD documented in this encounter [facility] 10-26-2024 Note HNO ID: [id number] Author: UMU NICOLAS LSW Service: ? Author Type: Veterinary Pathologist Type: Progress Notes Filed: 10/26/2024 10:44 Note Text: SOCIAL WORK FOLLOW UP NOTE: [facility] Date of service:10/26/24 TOPICS ADDRESSED: community resources PLAN: Continue follow up as needed Assigned SW listed in Care Team tab: Yes SW completed and faxed September 2024 mileage reimbursement log to [facility] Services SUSANNA Sotomayor [facility] 10-26-2024 History of Present illness Narrative SOCIAL WORK FOLLOW UP NOTE: [facility] Date of service:10/26/24 TOPICS ADDRESSED: community resources PLAN: Continue follow up as needed Assigned SW listed in Care Team tab: Yes SW completed and faxed September 2024 mileage reimbursement log to [facility] SUSANNA Sotomayor documented in this encounter [facility] 10-22-2024 Note HNO ID: [id number] Author: Severo DENT MD Service: ? Author Type: Physician Type: Progress Notes Filed: 10/22/2024 10:51 Note Text: Radiation Oncology - On Treatment Review (OTR) Note PATIENT NAME: Mateo Stearns PATIENT DIAGNOSIS: Prostate adenocarcinoma, initial PSA 4.46, biopsy Alfred score 3 + 3 = 6 (grade [...] Continue radiation as outlined. Severo Dent MD [facility] 10-22-2024 History of Present illness Narrative Radiation [...] Severo Dent MD documented in this encounter [facility] 10-16-2024 History of Present illness Narrative Associated [...] CARPAL TUNNEL RELEASE Left 05/03/[address] ROSENBAUM COLONOSCOPY W/ POLYPECTOMY CYST REMOVAL Cyst removed on chest and face CYST REMOVAL Excision of inflamed inclusion cyst left buttocks 4.5 cm. Intermediate closure of 4.5 cm left buttock FOOT SURGERY Right FRACTURE SURGERY Right 2006 HEEL FX W/ PINNING TOTAL HIP ARTHROPLASTY Right 06/16/2017 DR ROSENBAUM TOTAL HIP ARTHROPLASTY Left 11/15/2017 DR ROSENBAUM family history includes Alcohol abuse in his [...] symtpoms documented in this encounter [facility] 10-16-2024 Instructions Kathie Sánchez NP - 10/16/2024 11:00 AM EST Will give you some hand outs on stretching exercises Follow up in November 2024 for recheck documented in this encounter [facility] 10-15-2024 Note HNO ID: [id number] Author: Severo DENT MD Service: ? Author Type: Physician Type: Progress Notes Filed: 10/15/2024 15:22 Note Text: Radiation Oncology - On Treatment Review (OTR) Note PATIENT NAME: Mateo Stearns PATIENT DIAGNOSIS: Prostate adenocarcinoma, initial PSA 4.46, biopsy Alfred score 3 + 3 = 6 (grade [...] recheck in 2 weeks. Severo Dent MD [facility] 10-15-2024 History of Present illness Narrative Radiation Oncology - On Treatment Review (OTR) Note PATIENT NAME: Mateo Stearns PATIENT DIAGNOSIS: Prostate adenocarcinoma, initial PSA 4.46, biopsy Alfred score 3 + 3 = 6 (grade [...] Severo Dent MD documented in this encounter [facility] 10-11-2024 Nurse Note Mateo Stearns presents in office today for: Lab Draw only . Ordering Provider: Gopal Dent M.D. Test (s) ordered: CBC Method for obtaining blood: Phlebotomy was performed, accessing left antecubital vein. Needle removed intact. Dressing secured. Patient denies discomfort, dizziness, light-headedness or weakness and left the department without assist. Dayanna Call LPN [facility] 10-11-2024 Nurse Note Mateo Stearns presents in office today for: Lab Draw only . Ordering Provider: Gopal Dent M.D. Test (s) ordered: CBC Method for obtaining blood: Phlebotomy was performed, accessing left antecubital vein. Needle removed intact. Dressing secured. Patient denies discomfort, dizziness, light-headedness or weakness and left the department without assist. Dayanna Call LPN documented in this encounter [facility] 10-08-2024 Note HNO ID: [id number] Author: Severo DENT MD Service: ? Author [...] WBC recheck this week. Severo Dent MD [facility] 10-08-2024 History of Present illness Narrative Radiation [...] Severo Dent MD documented in this encounter [facility] 10-04-2024 Nurse Note Mateo Stearns presents in office today for: Lab Draw only . Ordering Provider: Gopal Dent M.D. Test (s) ordered: CBC Method for obtaining blood: Phlebotomy was performed, accessing left antecubital vein. Needle removed intact. Dressing secured. Patient denies discomfort, dizziness, light-headedness or weakness and left the department without assist. Dayanna Call LPN [facility] 10-04-2024 Nurse Note Mateo Stearns presents in office today for: Lab Draw only . Ordering Provider: Gopal Dent M.D. Test (s) ordered: CBC Method for obtaining blood: Phlebotomy was performed, accessing left antecubital vein. Needle removed intact. Dressing secured. Patient denies discomfort, dizziness, light-headedness or weakness and left the department without assist. Dayanna Call LPN documented in this encounter [facility] 10-01-2024 Note HNO ID: [id number] Author: Severo DENT MD Service: ? Author [...] Continue radiation as outlined. Severo Dent MD [facility] 10-01-2024 History of Present illness Narrative Radiation [...] Severo Dent MD documented in this encounter [facility] 09-25-2024 Note HNO ID: [id number] Author: UMU NICOLAS LSW Service: ? Author Type: Veterinary Pathologist Type: Progress Notes Filed: 09/25/2024 14:02 Note Text: SOCIAL WORK FOLLOW UP NOTE: [facility] Date of service:09/25/24 TOPICS ADDRESSED: community resources PLAN: Continue follow up as needed Assigned SW listed in Care Team tab: Yes SW completed and faxed a mileage reimbursement form on the Patient's behalf to [facility] Services for the month of August 2024. SUSANNA Sotomayor [facility] 09-25-2024 History of Present illness Narrative SOCIAL WORK FOLLOW UP NOTE: [facility] Date of service:09/25/24 TOPICS ADDRESSED: community resources PLAN: Continue follow up as needed Assigned SW listed in Care Team tab: Yes SW completed and faxed a mileage reimbursement form on the Patient's behalf to [facility] for the month of August 2024. SUSANNA Sotomayor documented in this encounter [facility] 09-25-2024 History of Present illness Narrative Radiation Oncology - On Treatment Review (OTR) Note PATIENT NAME: Mateo Stearns PATIENT DIAGNOSIS: Prostate adenocarcinoma, initial PSA 4.46, biopsy Alfred score 3 + 3 = 6 (grade [...] Severo Dent MD documented in this encounter [facility] 09-25-2024 Note HNO ID: [id number] Author: Severo DENT MD Service: ? Author Type: Physician Type: Progress Notes Filed: 09/26/2024 16:56 Note Text: Radiation Oncology - On Treatment Review (OTR) Note PATIENT NAME: Mateo Stearns PATIENT DIAGNOSIS: Prostate adenocarcinoma, initial PSA 4.46, biopsy Alfred score 3 + 3 = 6 (grade [...] Continue radiation as prescribed. Severo Dent MD [facility] 09-24-2024 Telephone encounter Note CBC order pending your approval. Dayanna Call RN [facility] 09-24-2024 Miscellaneous Notes CBC order pending your approval. Dayanna Call RN documented in this encounter [facility] 09-18-2024 Note HNO ID: [id number] Author: UMU NICOLAS LSW Service: ? Author Type: Veterinary Pathologist Type: Progress Notes Filed: 09/18/2024 14:01 Note Text: SOCIAL WORK FOLLOW UP NOTE: [facility] Date of service:09/18/24 Mateo Stearns [...] will follow up as appropriate. SUSANNA Sotomayor [facility] 09-18-2024 History of Present illness Narrative SOCIAL WORK FOLLOW UP NOTE: [facility] Date of service:09/18/24 Mateo Stearns [...] appropriate. SUSANNA Sotomayor documented in this encounter [facility] 09-17-2024 History of Present illness Narrative JINNYJOSE ANGEL MARSHALLHEMA Payan [id number] 09/17/2024 [facility] Radiation Oncology Department SIMULATION NOTE DATE OF SIMULATION: 09/17/2024 THERAPIST: Sabina Rico MACHINE: [email or web address] DIAGNOSIS: Malignant neoplasm of [id number] AREA: PELVIS CONTRAST: None <Select> Consent in [...] MARIUSZ 44:32 PM documented in this encounter [facility] 09-17-2024 History of Present illness Narrative JINNYJOSE ANGELHEMA Payan [id number] 09/17/2024 [facility] Department of Radiation Oncology Treatment [...] M.D. 48:19 AM documented in this encounter [facility] 09-17-2024 Note HNO ID: [id number] Author: Severo DENT MD Service: ? Author Type: Physician Type: Progress Notes Filed: 09/18/2024 16:32 Note Text: MATEO STEARNS [id number] 09/17/2024 [facility] Radiation Oncology Department SIMULATION NOTE DATE OF SIMULATION: 09/17/2024 THERAPIST: Sabina Rico MACHINE: [email or web address] DIAGNOSIS: Malignant neoplasm of [id number] AREA: PELVIS CONTRAST: None Consent in Epic: [...] Gopal Dent M.D. / KG :32 PM [facility] 09-17-2024 Note HNO ID: [id number] Author: Severo DENT MD Service: ? Author Type: Physician Type: Progress Notes Filed: 09/26/2024 08:19 Note Text: MATEO STEARNS [id number] 09/17/2024 [facility] Department of Radiation Oncology Treatment [...] Electronically Signed Gopal Dent M.D. 48:19 AM [facility] 09-14-2024 Telephone encounter Note I called and spoke with the Patient and I have him scheduled with a PFA appointment (Phone call) to discuss his Financial Questions on 09/18/24 at 9 am. DARRIUS Mckee [facility] 09-14-2024 Miscellaneous Notes I called and spoke [...] Mona Melvin RN documented in this encounter [facility] 09-14-2024 Telephone encounter Note PT called in [...] Umu- please contact pt. Mona Melvin RN [facility] 09-13-2024 History of Present illness Narrative Associated [...] CARPAL TUNNEL RELEASE Left 05/03/[address] ROSENBAUM COLONOSCOPY W/ POLYPECTOMY CYST REMOVAL Cyst removed on chest and face CYST REMOVAL Excision of inflamed inclusion cyst left buttocks 4.5 cm. Intermediate closure of 4.5 cm left buttock FOOT SURGERY Right FRACTURE SURGERY Right 2006 HEEL FX W/ PINNING TOTAL HIP ARTHROPLASTY Right 06/16/2017 DR ROSENBAUM TOTAL HIP ARTHROPLASTY Left 11/15/2017 DR ROSENBAUM family history includes Alcohol abuse in his [...] alves documented in this encounter [facility] 09-11-2024 Nurse Note Radiation Therapy - Patient Education Note PATIENT NAME: Mateo Stearns PATIENT September 11, 2024 [facility] FACILITY/LOCATION: [facility] READINESS TO LEARN Cognitive Ability: [...] need for social work, van service, and vendor specialist. Was PED reviewed? No Patient has an Onbody or Implanted device: No Signed by: Dayanna Call RN [facility] 09-11-2024 Nurse Note Radiation Therapy - Patient Education Note PATIENT NAME: Mateo Stearns PATIENT September 11, 2024 [facility] FACILITY/LOCATION: [facility] READINESS TO LEARN Cognitive Ability: [...] need for social work, van service, and vendor specialist. Was PED reviewed? No Patient has an Onbody or Implanted device: No Signed by: Dayanna Call RN documented in this encounter [facility] 09-11-2024 History of Present illness Narrative Radiation Oncology - Prostate Cancer Follow-up note PATIENT NAME: Mateo Stearns PATIENT DIAGNOSIS: Prostate adenocarcinoma, initial PSA 4.46, biopsy Alfred score 3 + 3 = 6 (grade group 1), clinical stage T1c, N0, M0, stage I [cT1a-c/T2a, N0, M0, PSA <10, GG 1] (AJCC 8th ed.), s/p TRUS Random biopsy. HPI: Patient in for follow-up to discuss treatment options again. Laboratory: [facility] genomic risk score: 0.43 (low risk) PSA. [...] by: Severo Dent MD cc: Kathie Sánchez CNP ([facility]) [address] [place] [address] Rufina Vora [address] [place] [address] documented in this encounter [facility] 09-11-2024 Note HNO ID: [id number] Author: Severo DENT MD Service: ? Author [...] follow-up to discuss treatment options again. Laboratory: [facility] genomic risk score: 0.43 (low risk) PSA. [...] ASSESSMENT/PLAN: Prostate adenocarcinoma, initial PSA 4.46, biopsy Alfred score 3 + 3 = 6 (grade [...] by: Severo Dent MD cc: Kathie Sánchez, MANAGER TECHNICAL TRAINING ([facility]) [address] [place] [address] Rufina Vora [address] [place] [address] [facility] 09-11-2024 Nurse Note AUA= 3 [facility] 09-11-2024 Nurse Note AUA= 3 documented in this encounter [facility] 09-11-2024 Note Education (RADTSA) MATEO STEARNS ([id number]) 1960 [place] Date Time Provider Department 09/11/24 DAYANNA CALL Reason for Visit: Patient Education [91] Visit Notes: >> Dayanna Call LPN Tue Sep 11, 2024 2:21 PM Status: Signed Radiation Therapy - Patient Education Note PATIENT NAME: Mateo Stearns PATIENT September 11, 2024 [facility] FACILITY/LOCATION: [facility] READINESS TO LEARN Cognitive Ability: [...] need for social work, van service, and vendor specialist. Was PED reviewed? No Patient has an [...] Encounter Status:Closed by DAYANNA CALL on 09/11/24 [facility] 07-12-2024 History of Present illness Narrative Radiation [...] COPD (chronic obstructive pulmonary disease) ([facility]) No date: Emphysema of lung ([facility]) No date: GERD (gastroesophageal reflux disease) [...] by: Severo Dent MD cc: Kathie Sánchez, MANAGER TECHNICAL TRAINING ([facility]) [address] [place] [address] [address] [place] [address] documented in this encounter [facility] 07-12-2024 Note HNO ID: [id number] Author: Severo DENT MD Service: ? Author [...] by: Severo Dent MD cc: Kathie Sánchez, MANAGER TECHNICAL TRAINING ([facility]) [address] [place] [address] Rufina Vora [address] [place] [address] [facility] 06-21-2024 Note HNO ID: [id number] Author: Severo DENT MD Service: ? Author Type: Physician Type: Progress Notes Filed: 06/21/2024 13:50 Note Text: Radiation Oncology - Prostate Cancer New Patient/Consult Note PATIENT NAME: Mateo Stearns PATIENT REQUESTING PROVIDER: Dr. Vora DIAGNOSIS: 63 year old male with prostate adenocarcinoma, initial PSA 4.46, biopsy Alfred score 3 + 3 = 6 (grade [...] with elevated PSA and prostate biopsy demonstrating Alfred 6 adenocarcinoma in 2 cores. (Left lateral [...] Chest: No respir (more content not included)... [facility] 06-21-2024 History of Present illness Narrative Radiation [...] on 05/01/2024 with the finding of adenocarcinoma, Alfred 6 (3+3) from left lateral base, left [...] ASSESSMENT/PLAN: Prostate adenocarcinoma, initial PSA 4.46, biopsy Alfred score 3 + 3 = 6 (grade [...] by: Severo Dent MD cc: Kathie Sánchez, MANAGER TECHNICAL TRAINING ([facility]) [address] [place] [address] [address]ufina Vora [address] [place] [address] documented in this encounter [facility] 06-21-2024 Nurse Note Pacemaker/Defibrillator?N Previous Cancer(s)?N Previous Radiation?N Lupus/Scleroderma?N On body monitoring device?N AUA= 5 [facility] 06-21-2024 Nurse Note Pacemaker/Defibrillator?N Previous Cancer(s)?N Previous Radiation?N Lupus/Scleroderma?N On body monitoring device?N AUA= 5 documented in this encounter [facility] 06-01-2024 Note HNO ID: [id number] Author: AMANDEEP CRISOSTOMO MD Service: ? Author Type: Physician Type: Progress Notes Filed: 06/24/2024 16:18 Note Text: Referring Provider: Chief Complaint: Recently diagnosed CaP HPI: 63 year old male from [place], [place] with a PMHx of COPD (40 pack-year smoker), Afib (on ASA), and GERD diagnosed with CAP in 05/20 which showed 2 cores of Alfred 6 disease. He has sever COPD with [...] review Assessment 63 year old male from [place], [place] with a PMHx of COPD (40 pack-year smoker and poor oxygenation status), Afib (on ASA), and GERD diagnosed with CAP in 05/20 which showed 2 cores of Alfred 6 disease. Recently had more + cores on a repeat biopsy and is here to discuss treatment options. He currently has low risk disease. We discussed the treatment options which include continued active surveillance, RARP, and XRT including EBRT or brachytherapy. Given patient's COPD status he may not be best candidate for surgery an (more content not included)... [facility] 06-01-2024 History of Present illness Narrative Referring Provider: Chief Complaint: Recently diagnosed CaP HPI: 63 year old male from [place], [place] with a PMHx of COPD (40 pack-year smoker), Afib (on ASA), and GERD diagnosed with CAP in 05/20 which showed 2 cores of Alfred 6 disease. He has sever COPD with [...] review Assessment 63 year old male from [place], [place] with a PMHx of COPD (40 pack-year smoker and poor oxygenation status), Afib (on ASA), and GERD diagnosed with CAP in 05/20 which showed 2 cores of Alfred 6 disease. Recently had more + cores [...] Amandeep Crisostomo MD documented in this encounter [facility] 06-01-2024 Note Patient Outreach (UR OLMN) MATEO STEARNS ([id number]) 1960 M Date Time Provider Department 06/01/24 AMANDEEP CRISOSTOMO UROFATOU During your visit today, we recorded the following information about you: Allergies As of Date: 06/01/2024 (No Known Allergies) Date Reviewed: 06/01/2024 Reviewed by: Garrett Davis MA - Fully Assessed Visit Diagnosis:Screening for genitourinary condition [Z13.89] Order(s):URINALYSIS, REFLEX MICROSCOPIC [[id number]] Order #: [id number]. #:[id number] Prescriptions as of 06/04/2024 - aspirin, enteric [...] Encounter Status:Closed by NESHA DOYLE on 06/04/24 [facility] 05-21-2024 Hospital Discharge instructions Patient Education 05/21/2024 [...] under a microscope. This is called the Alfred score and the total score can range [...] stress of having cancer. General instructions Take hmpl-jxn-rbvzzhy and prescription medicines only as told by your health care provider. If you have to go to the hospital, notify your cancer specialist (oncologist). Keep all follow-up visits. This is important. Where to find more information [place] [employer]: www.cancer.org [place] [employer] Oncology: www.cancer.net National [employer]: www.cancer.gov Contact a health care provider if: [...] provider. Document Revised: 02/10/2022 Document Reviewed: 02/10/2022 [employer] Patient Education 2022 Simple Admit. Follow Up Care 01/02/2024 13:58:04 With:DIONY CHANDLER, Rufina Reina, URL Address: [facility] [address], [place] [address]- [phone] When: Unknown [facility]24 Hospital Discharge instructions Patient Education 05/01/2024 [...] for your post-operative appointment in 1-2 weeks [phone] or [phone] Follow Up Care 03/15/2024 14:41:59 With:Rufina VORA Address: [address] [place] [id number] Business (1) When: Unknown Comments:Keep scheduled appointment [facility] 05-01-2024 Note [id number] [facility] 06-06-2023 Hospital Discharge instructions Patient Education [...] under a microscope. This is called the Alfred score and the total score can range from 6 10, indicating how likely it is that the cancer will spread (metastasize) to other parts of the body. The higher the score, the greater the likelihood that the cancer will spread. Alfred 6 or lower: This indicates that the [...] stress of having cancer. General instructions Take tbyj-hmd-elevzkm and prescription medicines only as told by your health care provider. If you have to go to the hospital, notify your cancer specialist (oncologist). Keep all follow-up visits. This is important. Where to find more information [employer] [employer]: www.cancer.org [place] [employer] Clinical Oncology: www.cancer.net National Cancer Grulla: www.cancer.gov Contact a health care provider if: [...] provider. Document Revised: 02/10/2022 Document Reviewed: 02/10/2022 [employer] Patient Education 2022 Simple Admit. Follow Up Care 04/27/2023 15:15:09 With:DIONY CHANDLER, Rufina Reina, URL Address: [facility] [address] , [place] [address] [phone] When:Within 6 Month(s) Comments:PSA and ANNE-MARIE [facility] 05-17-2023 Hospital Discharge instructions Patient Education [...] for your post-operative appointment in 1-2 weeks [phone] or [phone] Follow Up Care 04/27/2023 15:25:07 With:Rufina VORA Address: [facility] [address] [place] [address]- [facility] (1) When: Unknown Comments:Keep scheduled appointment [facility] 02-07-2023 Hospital Discharge instructions Patient Education [...] if anything looks unusual. Men with a pisflm-qmwu-kqbqxf risk for skin cancer may want to see a slunk skinner (critical systems technician) for an annual body check. Where to find more information National Cancer Grulla: https://www.cancer.gov/about-canc er/screening Centers for Disease Control and Prevention: https://www.cdc.gov/cancer/dcpc/p revention/screening.htm [employer]: https://www.cancer.org/latest-new s/5-fkjmbq-qeqadcnqu-qamnh-fuq-ih n.html Contact a health care provider if: [...] 08/11/2017 Document Revised: 08/03/2019 Document Reviewed: 08/11/2017 [employer] Patient Education 2020 [employer] Follow Up Care 12/10/2022 10:33:39 With:DIONY CHANDLER, Rufina Reina, URL Address: [facility] [address], [place] [address]- When: Unknown [facility] [place] 05-17-2022 Hospital Discharge instructions Patient Education 05/17/2022 13:40:29 Epidermal Cyst, Upvn-qv-Amqb Epidermal Cyst An epidermal cyst is a [...] yourself. Follow these instructions at home: Take ikaq-cur-zbuxleo and prescription medicines only as told by [...] the cyst, or to remove it. Take zvtp-ebk-trpmngk and prescription medicines only as told by [...] 12/22/2005 Document Revised: 03/06/2020 Document Reviewed: 08/23/2019 [employer] Patient Education 2019 [employer] 04/19/2022 08:23:29 Testicular Self-Exam Testicular Self-Exam [...] 02/20/2002 Document Revised: 03/06/2020 Document Reviewed: 10/10/2017 [employer] Patient Education 2020 [employer] Follow Up Care 03/17/2022 10:53:14 With:DIONY CHANDLER, Rufina Reina, URL Address: [facility] [address] , [place] [address]- When: Unknown [facility] Evaluation + Plan note Future Appointments Appointment Date:06/08/2022 08:45:00 AM Scheduled Provider: Location:[facility] Appointment Type:Urology CALL PAT FT Appointment Date:06/15/2022 09:00:00 AM Scheduled Provider: Location:[facility] Appointment Type:Urology FT [facility] Evaluation + Plan note Future Appointments Appointment Date:08/23/2022 12:30:00 PM Scheduled Provider:Rufina VORA MD Location:[facility] Appointment Type:URO Office Visit [facility] Evaluation + Plan note Future Appointments Appointment Date:06/06/2023 09:45:00 AM Scheduled Provider:Rufina VORA MD Location:[facility] Appointment Type:URO Office Visit Diagnostic Tests PendingProstate Histology ([facility]) 05/17/23 [facility] Evaluation + Plan note Future Appointments Appointment Date:12/09/2023 10:45:00 AM Scheduled Provider:Rufina VORA MD Location:[facility] Appointment Type:URO Office Visit Diagnostic Tests PendingPSA Total 06/06/23 [facility] Evaluation + Plan note Future Appointments Appointment Date:05/21/2024 11:30:00 AM Scheduled Provider:Rufina VORA MD Location:[facility] Appointment Type:URO Office Visit Diagnostic Tests PendingProstate Histology ([facility]) 05/01/24 [facility] Evaluation + Plan note [facility] Evaluation + Plan note Future Appointments Appointment Date:01/18/2025 10:30:00 AM Scheduled Provider:Rufina VORA MD Location:[facility] Appointment Type:URO Office Visit [facility] Evaluation note No Assessments Infor mation Available [facility] Evaluation note Diagnosis Screening for genitourinary condition Screening for other and unspecified genitourinary condition [facility] Diagnosis Malignant neoplasm of prostate (HCC)- Primary Malignant neoplasm of prostate [facility] Diagnosis Prostate cancer (HCC)- Primary Malignant neoplasm of prostate [facility] Diagnosis Malignant neoplasm of prostate (HCC)- Primary Malignant neoplasm of prostate [facility] Diagnosis Encounter for subsequent annual [...] pain [facility] Diagnosis Malignant neoplasm of prostate (HCC)- Primary Malignant neoplasm of prostate [facility] Diagnosis Malignant neoplasm of prostate (HCC)- Primary Malignant neoplasm of prostate [facility] Diagnosis Malignant neoplasm of prostate (HCC)- Primary Malignant neoplasm of prostate [facility] Diagnosis Malignant neoplasm of prostate (HCC)- Primary Malignant neoplasm of prostate [facility] Diagnosis Malignant neoplasm of prostate (HCC)- Primary Malignant neoplasm of prostate [facility] Diagnosis Malignant neoplasm of prostate (HCC) Malignant neoplasm of prostate [facility] Diagnosis Malignant neoplasm of prostate (HCC)- Primary Malignant neoplasm of prostate [facility] Diagnosis Malignant neoplasm of prostate [...] neoplasm of prostate documented in [facility] encounter [facility]* Diagnosis Malignant neoplasm of prostate (HCC)- Primary Malignant neoplasm of prostate [facility] Diagnosis Malignant neoplasm of prostate (HCC)- Primary Malignant neoplasm of prostate [facility] Diagnosis Malignant neoplasm of prostate (HCC)- Primary Malignant neoplasm of prostate documented in this encounter [facility] Diagnosis Encounter for subsequent annual [...] both eyes- Primary documented in this encounter [facility]* Diagnosis Encounter for subsequent annual [...] Primary Nausea alone documented in this encounter [facility]* Diagnosis Penetrating atherosclerotic ulcer of aorta- Primary documented in this encounter [facility]* Diagnosis Penetrating atherosclerotic ulcer of aorta- Primary Penetrating atherosclerotic ulcer of aorta- Primary Penetrating atherosclerotic ulcer of aorta- Primary Penetrating atherosclerotic ulcer of aorta documented in this encounter [facility]* Diagnosis Encounter for subsequent annual wellness visit (AWV) in Medicare patient- Primary Chronic obstructive pulmonary disease, unspecified COPD type (CMS/HCC) Paroxysmal atrial fibrillation (CMS/HCC) Atrial fibrillation Chronic GERD Chronic gout without tophus, unspecified cause, unspecified site Mixed hyperlipidemia (CMS/HCC) Mixed hyperlipidemia DDD (degenerative disc disease), cervical- Primary Degeneration of cervical intervertebral disc Other thrombophilia Chronic respiratory failure with hypoxia (CMS/HCC) Abdominal aortic aneurysm, without rupture, unspecified (CMS/HCC) Thoracic aortic aneurysm, without rupture, unspecified (CMS/HCC) Atherosclerosis of aorta (CMS/HCC) Atherosclerosis of aorta Other chronic pain DDD (degenerative disc disease), cervical- Primary Degeneration of cervical intervertebral disc Atrial fibrillation (CMS/HCC) Atrial fibrillation Gastro-esophageal reflux disease without esophagitis Prostate cancer (CMS/HCC) Malignant neoplasm of prostate Other chronic pain- Primary documented in this encounter [facility]* Diagnosis Penetrating atherosclerotic ulcer of aorta- Primary Penetrating atherosclerotic ulcer of aorta- Primary Thoracic aortic aneurysm documented in this encounter [facility]* Diagnosis Penetrating atherosclerotic ulcer of aorta- Primary Penetrating atherosclerotic ulcer of aorta- Primary Aneurysm of descending thoracic aorta without rupture [facility] Narrative No data available for this section [facility] Hospital Discharge instructions No data available for this section [facility] instructionsNot on file documented in this [facility] SystemInstructionsNot on file documented in this [facility] SystemInstructionsNot on file documented in this encounterProMary [facility] SystemInstructionsNot on file documented in this encounterProMary [facility] SystemProgress note No data available for this section [facility] reason for referral (narrative) Referred by: DIONY CHANDLER, Rufina Reina [facility] reason for referral (narrative)* Misc (Routine) - Pending Review Specialty Diagnoses / Procedures Referred By Contac t Referred To Contact Procedures Wound care (specify) Bradley Zuniga APRN-CNP [employer], [address] [place], [place] [address] Phone: tel:[phone] fax: Referral ID Status Reason Start Date Expiration Date V isits Requested Visits Authorized [id number] Pending Review 05/01/2025 05/01/2026 1 1 * Misc (Routine) - Pending Review Specialty Diagnoses / Procedures Referred By Contac t Referred To Contact Procedures Hygiene Bradley Zuniga APRN-CNP [employer], [address] [place] [address] Phone: tel: fax: Referral ID Status Reason Start Date Expiration Date V isits Requested Visits Authorized [id number] Pending Review 05/01/2025 05/01/2026 1 1 * Misc (Routine) - Pending Review Specialty Diagnoses / Procedures Referred By Contac t Referred To Contact Procedures Adult diet Bradley Zuniga, LINE APPLIANCE ASSEMBLER-MANAGER TECHNICAL TRAINING [address], [address] [place] [address] Phone: tel:+ fax: Referral ID Status Reason Start Date Expiration Date V isits Requested Visits Authorized [id number] Pending Review 05/01/2025 05/01/2026 1 1 Electronically signed by Bradley Zuniga, LINE APPLIANCE ASSEMBLER-MANAGER TECHNICAL TRAINING at 05/01/2025 12:05 PM EDT [facility] N[facility]* Auth/Cert Specialty Diagnoses / Procedures Referred By Contac t Referred To Contact Diagnoses Penetrating atherosclerotic ulcer of aorta 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] Procedures ENDOGRAFT BYPASS THORACIC AORTA Sadie Piper MD [address], [address] [place] [address] Phone: tel: fax: Referral ID Status Reason Start Date Expiration Date Visits Re quested Visits Authorized [id number] 1 1 [facility] Summary Purpose Family History No Family [...] 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 Severo Dent MD [address] [place] [address] [place] [address] Referral ID Status Reason Start Date Expiration Date Visits Requested Visits Authorized [id number] New Request PCP Requested Referral 4 12/16/2024 1 1 Additional Source Comments (unrecognized sect ion and content) No Status Records FoundNo Status Records FoundNo Status Records FoundNo Status Records FoundNo Status Records FoundNo Status Records FoundNo Status Records FoundNo Status Records FoundNo Status Records FoundNo Status Records Found INFORMATION SOURCE (unrecogn ized section and content) DATE CREATED AUTHOR 04/01/2021 [facility] DATE CREATED AUTHOR AUTHOR'S ORGANIZ ATION 04/13/2023 [facility] [place] [facility] DATE CREATED AUTHOR AUTHOR'S ORGANIZ ATION 05/22/2024 [facility] DATE CREATED AUTHOR AUTHOR'S ORGANIZ ATION 12/15/2024 [facility] DATE CREATED AUTHOR AUTHOR'S ORGANIZ ATION 01/04/2025 [facility] DATE CREATED AUTHOR AUTHOR'S ORGANIZ ATION 01/21/2025 [facility] DATE CREATED AUTHOR AUTHOR'S ORGANIZ ATION 05/04/2025 [facility] DATE CREATED AUTHOR AUTHOR'S ORGANIZ ATION 05/14/2025 [facility] DATE CREATED AUTHOR AUTHOR'S ORGANIZ ATION 05/29/2025 [facility] DATE CREATED AUTHOR AUTHOR'S ORGANIZ ATION 06/01/2025 [facility] Care Team (unrecognized sect ion and content) Linux System Engineer Relationship Specialty Start Date End Date Curt Lowry MD [address] [place] [address] PCP - General Family Medicine 11/11/23 Kathie Sánchez, SKIRT CLIPPER [address] [place] [address] Nurse Practitioner Family Medicine 10/03/23 Linux System Engineer Relationship Specialty Start Date End Date Peter Bhat DO PCP - General Family Medicine 05/11/13 Linux System Engineer Relationship Specialty Start Date End Date Kathie Sánchez MANAGER TECHNICAL TRAINING [address] [place] [address] PCP - General Family Medicine 06/21/24 Linux System Engineer Relationship Specialty Start Date End Date Peter Bhat DO PCP - General Family Medicine 05/11/13 06/20/24 Linux System Engineer Relationship Specialty Start Date End Date Kathie Sánchez, MANAGER TECHNICAL TRAINING [address] [place] [address] PCP - General Family Medicine 06/21/24 Linux System Engineer Relationship Specialty Start Date End Date Kathie Sánchez NP [address] [place] [address] PCP - Crow ID 12/29/23 Curt Lowry MD [address] [place] [address] PCP - General Family Medicine 02/28/24 Kathie Sánchez NP [address] [place] [address] Nurse Practitioner Family Medicine 10/03/23 Kathie Sánchez NP [address] [place] [address] Nurse Practitioner Family Medicine 02/28/24 Linux System Engineer Relationship Specialty Start Date End Date Kathie Sánchez, MANAGER TECHNICAL TRAINING [address] [place] [address] PCP - General Family Medicine 06/21/24 Linux System Engineer Relationship Specialty Start Date End Date Kathie Sánchez NP [address] [place] [address] PCP - Crow LAFLEUR 12/29/23 Curt Lowry MD [address] [place] [address] PCP - General Family Medicine 02/28/24 Kathie Sánchez NP [address] [place] [address] Nurse Practitioner Family Medicine 10/03/23 Kathie Sánchez NP [address] [place] [address] Nurse Practitioner Family Medicine 02/28/24 Linux System Engineer Relationship Specialty Start Date End Date Kathie Sánchez NP [address] [place] [address] PCP - Crow LAFLEUR 12/29/23 Curt Lowry MD [address] [place] [address] PCP - General Family Medicine 02/28/24 Kathie Sánchez NP [address] [place] [address] Nurse Practitioner Family Medicine 10/03/23 Kathie Sánchez NP [address] [place] [address] Nurse Practitioner Family Medicine 02/28/24 Linux System Engineer Relationship Specialty Start Date End Date Kathie Sánchez CNP [address] [place] [address] PCP - General Family Medicine 06/21/24 Linux System Engineer Relationship Specialty Start Date End Date Kathie Sánchez CNP [address] [place] [address] PCP - General Family Medicine 06/21/24 Linux System Engineer Relationship Specialty Start Date End Date Kathie Sánchez CNP [address] [place] [address] PCP - General Family Medicine 06/21/24 Umu Nicolas, HEAT TREAT FURNACE OPERATOR Veterinary Pathologist 09/18/24 Linux System Engineer Relationship Specialty Start Date End Date Kathie Sánchez CNP [address] [place] [address] PCP - General Family Medicine 06/21/24 Umu Nicolas LSW Veterinary Pathologist 09/18/24 Linux System Engineer Relationship Specialty Start Date End Date Kathie Sánchez CNP [address] [place] [address] PCP - General Family Medicine 06/21/24 Umu Nicolas, HEAT TREAT FURNACE OPERATOR Veterinary Pathologist 09/18/24 Linux System Engineer Relationship Specialty Start Date End Date Kathie Sánchez CNP [address] [place] [address] PCP - General Family Medicine 06/21/24 Umu Nicolas, HEAT TREAT FURNACE OPERATOR Veterinary Pathologist 09/18/24 Linux System Engineer Relationship Specialty Start Date End Date Kathie Sánchez CNP [address] [place] [address] PCP - General Family Medicine 06/21/24 Umu Nicolas, HEAT TREAT FURNACE OPERATOR Veterinary Pathologist 09/18/24 Linux System Engineer Relationship Specialty Start Date End Date Kathie Sánchez, MANAGER TECHNICAL TRAINING [address] [place] [address] PCP - General Family Medicine 06/21/24 Umu Nicolas, HEAT TREAT FURNACE OPERATOR Veterinary Pathologist 09/18/24 Linux System Engineer Relationship Specialty Start Date End Date Kathie Sánchez CNP [address] [place] [address] PCP - General Family Medicine 06/21/24 Umu Nicolas, HEAT TREAT FURNACE OPERATOR Veterinary Pathologist 09/18/24 Linux System Engineer Relationship Specialty Start Date End Date Kathie Sánchez, MANAGER TECHNICAL TRAINING [address] [place] [address] PCP - General Family Medicine 06/21/24 Umu Nicolas, HEAT TREAT FURNACE OPERATOR Veterinary Pathologist 09/18/24 Linux System Engineer Relationship Specialty Start Date End Date Kathie Sánchez, SKIRT CLIPPER [address] [place] [address] PCP - Crow LAFLEUR 12/29/23 Curt Lowry MD [address] [place] [address] PCP - General Family Medicine 02/28/24 Kathie Sánchez NP [address] [place] [address] Nurse Practitioner Family Medicine 10/03/23 Kathie Sánchez NP [address] [place] [address] Nurse Practitioner Family Medicine 02/28/24 Linux System Engineer Relationship Specialty Start Date End Date Kathie Sánchez CNP [address] [place] [address] PCP - General Family Medicine 06/21/24 Umu iNcolas LSW Veterinary Pathologist 09/18/24 Linux System Engineer Relationship Specialty Start Date End Date Kathie Sánchez CNP [address] [place] [address] PCP - General Family Medicine 06/21/24 Umu Nicolas, HEAT TREAT FURNACE OPERATOR Veterinary Pathologist 09/18/24 Linux System Engineer Relationship Specialty Start Date End Date Kathie Sánchez MANAGER TECHNICAL TRAINING [address] [place] [address] PCP - General Family Medicine 06/21/24 Umu Nicolas, HEAT TREAT FURNACE OPERATOR Veterinary Pathologist 09/18/24 Linux System Engineer Relationship Specialty Start Date End Date Kathie Sánchez NP [address] [place] [address] PCP - Crow LFALEUR 12/29/23 Curt Lowry MD [address] [place] [address] PCP - General Family Medicine 02/28/24 Kathie Sánchez NP [address] [place] [address] Nurse Practitioner Family Medicine 10/03/23 Kathie Sánchez NP [address] [place] [address] Nurse Practitioner Family Medicine 02/28/24 Linux System Engineer Relationship Specialty Start Date End Date Kathie Sánchez NP [address] [place] [address] PCP - Crow LAFLEUR 12/29/23 Curt Lowry MD [address] [place] [address] PCP - General Family Medicine 02/28/24 Kathie Sánchez NP [address] [place] [address] Nurse Practitioner Family Medicine 10/03/23 Kathie Sánchez NP [address] [place] [address] Nurse Practitioner Family Medicine 02/28/24 Linux System Engineer Relationship Specialty Start Date End Date Kathie Sánchez NP [address] [place] [address] PCP - Crow LAFLEUR 12/29/23 Curt Lowry MD [address] [place] [address] PCP - General Family Medicine 02/28/24 Kathie Sánchez NP [address] [place] [address] Nurse Practitioner Family Medicine 10/03/23 Kathie Sánchez SKIRT CLIPPER [address] [place] [address] Nurse Practitioner Family Medicine 02/28/24 Linux System Engineer Relationship Specialty Start Date End Date Kathie Sánchez CNP [address] [place] [address] PCP - General Family Medicine 06/21/24 Umu Nicolas LSW Veterinary Pathologist 09/18/24 Linux System Engineer Relationship Specialty Start Date End Date Kathie Sánchez CNP [address] [place] [address] PCP - General Family Medicine 06/21/24 Umu Nicolas LSW Veterinary Pathologist 09/18/24 Linux System Engineer Relationship Specialty Start Date End Date Kathie Sánchez MANAGER TECHNICAL TRAINING [address] [place] [address] PCP - General Family Medicine 06/21/24 Umu Nicolas LSW Veterinary Pathologist 09/18/24 Linux System Engineer Relationship Specialty Start Date End Date Kathie Sánchez CNP [address] [place] [address] PCP - General Family Medicine 06/21/24 Umu Nicolas LSW Veterinary Pathologist 09/18/24 Linux System Engineer Relationship Specialty Start Date End Date Kathie Sánchez CNP [address] [place] [address] PCP - General Family Medicine 06/21/24 Umu Nicolas LSW Veterinary Pathologist 09/18/24 Linux System Engineer Relationship Specialty Start Date End Date Kathie Sánchez MANAGER TECHNICAL TRAINING [address] [place] [address] PCP - General Family Medicine 06/21/24 Umu Nicolas LSW Veterinary Pathologist 09/18/24 Linux System Engineer Relationship Specialty Start Date End Date Kathie Sánchez NP [address] [place] [address] PCP - Crow LAFLEUR 12/29/23 Curt Lowry MD [address] [place] [address] PCP - General Family Medicine 02/28/24 Kathie Sánchez NP [address] [place] [address] Nurse Practitioner Family Medicine 10/03/23 Kathie Sánchez NP [address] [place] [address] Nurse Practitioner Family Medicine 02/28/24 Lissa Garza MA Family Medicine 12/05/24 Linux System Engineer Relationship Specialty Start Date End Date Kathie Sánchez NP [address] [place] [address] PCP - Crow LAFLEUR 12/29/23 Curt Lowry MD [address] [place] [address] PCP - General Family Medicine 02/28/24 Kathie Sánchez NP [address] [place] [address] Nurse Practitioner Family Medicine 10/03/23 Kathie Sánchez NP [address] [place] [address] Nurse Practitioner Family Medicine 02/28/24 Lissa Garza MA Family Medicine 12/05/24 Andrade Pendleton OD [address] [place] [address] Referring Physician Optometry 01/02/25 Linux System Engineer Relationship Specialty Start Date End Date Kathie Sánchez NP [address] [place] [address] PCP - Crow LAFLEUR 12/29/23 Curt Lowry MD [address] [place] [address] PCP - General Family Medicine 02/28/24 Kathie Sánchez NP [address] [place] [address] Nurse Practitioner Family Medicine 10/03/23 Kathie Sánchez NP [address] [place] [address] Nurse Practitioner Family Medicine 02/28/24 Lissa Garza MA Family Medicine 12/05/24 Andrade Pendleton, OD [address] [place] [address] Referring Physician Optometry 01/02/25 Linux System Engineer Relationship Specialty Start Date End Date Kathie Sánchez NP [address] [place] [id number] PCP - [facility] 12/29/23 Curt Lowry MD [address] [place] [phone] PCP - General Family Medicine 02/28/24 Kathie Sánchez NP [address] [place] [phone] Nurse Practitioner Family Medicine 10/03/23 Kathie Sánchez NP [address] [place] [phone] Nurse Practitioner Family Medicine 02/28/24 Lissa Garza MA Family Medicine 12/05/24 Andrade Pendleton, OD [address] [place] [phone] Referring Physician Optometry 01/02/25 Linux System Engineer Relationship Specialty Start Date End Date Kathie Sánchez NP [address] [place] [phone] PCP - [facility] 12/29/23 Curt Lowry MD [address] [place] [phone] PCP - General Family Medicine 02/28/24 Kathie Sánchez NP [address] [place] [phone] Nurse Practitioner Family Medicine 10/03/23 Kathie Sánchez NP [address] [place] [phone] Nurse Practitioner Family Medicine 02/28/24 Lissa Garza MA Family Medicine 12/05/24 Andrade Pendleton OD [address] [place] [phone] Referring Physician Optometry 01/02/25 Linux System Engineer Relationship Specialty Start Date End Date Kathie Sánchez NP [address] [place] [phone] PCP - [facility] 12/29/23 Curt Lowry MD [address] [place] [phone] PCP - General Family Medicine 02/28/24 Kathie Sánchez NP [address] [place] [phone] Nurse Practitioner Family Medicine 10/03/23 Kathie Sánchez NP [address] [place] [phone] Nurse Practitioner Family Medicine 02/28/24 Lissa Garza MA Family Medicine 12/05/24 Andrade Pendleton OD [address] [place] [phone] Referring Physician Optometry 01/02/25 Linux System Engineer Relationship Specialty Start Date End Date Diana Bush MD [address] [place] [address] PCP - General Family Medicine 06/07/19 Linux System Engineer Relationship Specialty Start Date End Date Diana Bush MD [address] [place] [address] PCP - General Family Medicine 06/07/19 Linux System Engineer Relationship Specialty Start Date End Date Kathie Sánchez NP [address] [place] [phone] PCP - [facility]LE[facility] 12/29/23 Curt Lowry MD [address] [place] [phone] PCP - General Family Medicine 02/28/24 Kathie Sánchez NP [address] [place] [phone] Nurse Practitioner Family Medicine 10/03/23 Kathie Sánchez NP [address] [place] [address] Nurse Practitioner Family Medicine 02/28/24 Andrade Pendleton, OD [address] [place] [address] Referring Physician Optometry 01/02/25 Linux System Engineer Relationship Specialty Start Date End Date Diana Bush MD [address] [place] [address] PCP - General Family Medicine 06/07/19 Linux System Engineer Relationship Specialty Start Date End Date Curt Lowry MD [address] [place] [address] PCP - General Family Medicine 02/28/24 Kathie Sánchez, SKIRT CLIPPER [address] [place] [address] Nurse Practitioner Family Medicine 10/03/23 Kathie Sánchez, SKIRT CLIPPER [address] [place] [address] Nurse Practitioner Family Medicine 02/28/24 Andrade Pendleton, DUNIA [address] [place] [address] Referring Physician Optometry 01/02/25 Linux System Engineer Relationship Specialty Start Date End Date Diana Bush MD [address], [place] [phone] PCP - General Family Medicine 06/07/19 Linux System Engineer Relationship Specialty Start Date End Date Diana Bush MD [address] [place] [address] PCP - General Family Medicine 06/07/19 Linux System Engineer Relationship Specialty Start Date End Date Curt Lowry MD [address] [place] [phone] PCP - General Family Medicine 05/27/25 Linux System Engineer Relationship Specialty Start Date End Date Kathie Sánchez NP [address] [place] [phone] PCP - Crow LAFLEUR 12/29/23 Kathie Sánchez NP [address] [place] [phone] Nurse Practitioner Family Medicine 10/03/23 Kathie Sánchez NP [address] [place] [phone] Nurse Practitioner Family Medicine 02/28/24 Andrade Pendleton OD [address] [place] [phone] Referring Physician Optometry 01/02/25 Source Comments (unrecognize d section and content) In the event this informatio n is protected by the Federal Confidentiality of Alcohol and Drug Abuse Patient Records regulations: The Federal rules restrict any use of the information to criminally investigate or prosecute any alcohol or drug abuse patient.[facility] the event this information is protected by the Federal Confidentiality of Alcohol and Drug Abuse Patient Records regulations: The Federal rules restrict any use of the information to criminally investigate or prosecute any alcohol or drug abuse patient.[facility] ShawIn the event this information is protected by the Federal Confidentiality of Alcohol and Drug Abuse Patient Records regulations: The Federal rules restrict any use of the information to criminally investigate or prosecute any alcohol or drug abuse patient.[facility] ShawIn the event this information is protected by the Federal Confidentiality of Alcohol and Drug Abuse Patient Records regulations: The Federal rules restrict any use of the information to criminally investigate or prosecute any alcohol or drug abuse patient.[facility] ShawIn the event this information is protected by the Federal Confidentiality of Alcohol and Drug Abuse Patient Records regulations: The Federal rules restrict any use of the information to criminally investigate or prosecute any alcohol or drug abuse patient.[facility] ShawIn the event this information is protected by the Federal Confidentiality of Alcohol and Drug Abuse Patient Records regulations: The Federal rules restrict any use of the information to criminally investigate or prosecute any alcohol or drug abuse patient.[facility] ShawIn the event this information is protected by the Federal Confidentiality of Alcohol and Drug Abuse Patient Records regulations: The Federal rules restrict any use of the information to criminally investigate or prosecute any alcohol or drug abuse patient.[facility] ShawIn the event this information is protected by the Federal Confidentiality of Alcohol and Drug Abuse Patient Records regulations: The Federal rules restrict any use of the information to criminally investigate or prosecute any alcohol or drug abuse patient.[facility] ShawIn the event this information is protected by the Federal Confidentiality of Alcohol and Drug Abuse Patient Records regulations: The Federal rules restrict any use of the information to criminally investigate or prosecute any alcohol or drug abuse patient.[facility] ShawIn the event this information is protected by the Federal Confidentiality of Alcohol and Drug Abuse Patient Records regulations: The Federal rules restrict any use of the information to criminally investigate or prosecute any alcohol or drug abuse patient.[facility] ShawIn the event this information is protected by the Federal Confidentiality of Alcohol and Drug Abuse Patient Records regulations: The Federal rules restrict any use of the information to criminally investigate or prosecute any alcohol or drug abuse patient.[facility] ShawIn the event this information is protected by the Federal Confidentiality of Alcohol and Drug Abuse Patient Records regulations: The Federal rules restrict any use of the information to criminally investigate or prosecute any alcohol or drug abuse patient.[facility] ShawIn the event this information is protected by the Federal Confidentiality of Alcohol and Drug Abuse Patient Records regulations: The Federal rules restrict any use of the information to criminally investigate or prosecute any alcohol or drug abuse patient.[facility] ShawIn the event this information is protected by the Federal Confidentiality of Alcohol and Drug Abuse Patient Records regulations: The Federal rules restrict any use of the information to criminally investigate or prosecute any alcohol or drug abuse patient.[facility] ShawIn the event this information is protected by the Federal Confidentiality of Alcohol and Drug Abuse Patient Records regulations: The Federal rules restrict any use of the information to criminally investigate or prosecute any alcohol or drug abuse patient.[facility] ShawIn the event this information is protected by the Federal Confidentiality of Alcohol and Drug Abuse Patient Records regulations: The Federal rules restrict any use of the information to criminally investigate or prosecute any alcohol or drug abuse patient.[facility] ShawIn the event this information is protected by the Federal Confidentiality of Alcohol and Drug Abuse Patient Records regulations: The Federal rules restrict any use of the information to criminally investigate or prosecute any alcohol or drug abuse patient.[facility] ShawIn the event this information is protected by the Federal Confidentiality of Alcohol and Drug Abuse Patient Records regulations: The Federal rules restrict any use of the information to criminally investigate or prosecute any alcohol or drug abuse patient.[facility] ShawIn the event this information is protected by the Federal Confidentiality of Alcohol and Drug Abuse Patient Records regulations: The Federal rules restrict any use of the information to criminally investigate or prosecute any alcohol or drug abuse patient.[facility] ShawIn the event this information is protected by the Federal Confidentiality of Alcohol and Drug Abuse Patient Records regulations: The Federal rules restrict any use of the information to criminally investigate or prosecute any alcohol or drug abuse patient.[facility] ShawIn the event this information is protected by the Federal Confidentiality of Alcohol and Drug Abuse Patient Records regulations: The Federal rules restrict any use of the information to criminally investigate or prosecute any alcohol or drug abuse patient.[facility] ShawIn the event this information is protected by the Federal Confidentiality of Alcohol and Drug Abuse Patient Records regulations: The Federal rules restrict any use of the information to criminally investigate or prosecute any alcohol or drug abuse patient.[facility] ShawIn the event this information is protected by the Federal Confidentiality of Alcohol and Drug Abuse Patient Records regulations: The Federal rules restrict any use of the information to criminally investigate or prosecute any alcohol or drug abuse patient.[facility] ShawIn the event this information is protected by the Federal Confidentiality of Alcohol and Drug Abuse Patient Records regulations: The Federal rules restrict any use of the information to criminally investigate or prosecute any alcohol or drug abuse patient.[facility] ShawIn the event this information is protected by the Federal Confidentiality of Alcohol and Drug Abuse Patient Records regulations: The Federal rules restrict any use of the information to criminally investigate or prosecute any alcohol or drug abuse patient.[facility] ShawIn the event this information is protected by the Federal Confidentiality of Alcohol and Drug Abuse Patient Records regulations: The Federal rules restrict any use of the information to criminally investigate or prosecute any alcohol or drug abuse patient.[facility] Reason for Visit (unrecogniz ed section and content) Reason Comments Consult Reason Comments New Patient Elevated PSA Reason Comments Prostate Cancer Reason Comments Patient Education Reason Comments Financial Questions Reason Onset Date Comments Simulation Request Form 09/17/2024 Reason Comments Orders CBC Reason Comments Radiotherapy On-treatment Visit Reason Comments Cataract Reason Comments Post-op Aneurysm Repair Reason Comments tevar 04-09-25 testing done [place] angiogram chest 6/ Active and Recently Administ ered Medications (unrecognized section and content) Medication Order 04/29/2025 04/30/2025 05/01/2025 aprepitant (EMEND) capsule 40 mg (COMPLETED) 40 mg, oral, Once, On Tue04/30/25 at 1000, For 1 dose, Pre-op 1007 (Given - Provider: Christina Mora RN) aspirin EC tablet 81 mg 81 mg, oral, Daily, First dose on Tue04/30/25 at 1415, Do not crush or chew. 1440 (Given - Provider: Selvin Doss RN) 0859 (Given - Provider: Anusha García RN) atorvastatin (LIPITOR) tablet 10 mg 10 mg, oral, Nightly, First dose on Tue04/30/25 at 2200, Look-alike/sound-alike medication - verify indication for use. 2139 (Given - Provider: Kate Wright RN) busPIRone (BUSPAR) tablet 10 mg 10 mg, oral, 3 times daily, First dose on Tue04/30/25 at 2215, Look-alike/sound-alike medication - verify indication for use. Avoid grapefruit juice., Indications: generalized anxiety disorder 221 (Given - Provider: Kate Wright RN) 0508 (Given - Provider: Kate Wright RN)142 (Given - Provider: Anusha García RN) clopidogreL (PLAVIX) tablet 75 mg 75 mg, oral, Daily, First dose on Tue05/01/25 at 0900, Look-alike/sound-alike medication - verify indication for use. 0900 (Given - Provider: Anusha García RN) metoprolol succinate XL (TOPROL XL) 24 hr tablet 50 mg 50 mg, oral, Daily, First dose on Tue05/01/25 at 0900, Look-alike/sound-alike medication - verify indication for use. Do not crush or chew., Indications: hypertension 0859 (Given - Provider: Anusha García RN) pantoprazole (PROTONIX) EC tablet 40 mg 40 mg, oral, Daily, First dose on Tue05/01/25 at 0900, Look-alike/sound-alike medication - verify indication for use. If patient is receiving enteral feeding, consider alternative PPI or continue IV pantoprazole until the delayed-release tablet can be taken orally, Indication: GERD, Indications: gastroesophageal reflux disease 0859 (Given - Provider: Anusha García RN) sodium chloride 0.9 % flush 3 mL 3 mL, intravenous, Every 12 hours scheduled, First dose on Tue04/30/25 at 1415 1415 (Due)2140 (Given - Provider: Kate Wright RN) 0900 (Not Given - Provider: Anusha García RN - Reason: IV infusing) traZODone (DESYREL) tablet 50 mg 50 mg, oral, Nightly, First dose on Tue04/30/25 at 2200, Look-alike/sound-alike medication - verify indication for use., Indications: insomnia associated with depression 2139 (Given - Provider: Kate Wright RN) Continuous Medication Order 04/29/2025 04/30/2025 05/01/2025 lactated ringers infusion 50 mL/hr, intravenous, Continuous, Starting on Tue04/30/25 at 1415, For 1 day 4 (New Bag - Provider: Kate Wright RN) 1641 (Due: Order Ending - Provider: Automatic Discharge Provider - Comment: [Order ends at this time. Document the following action when infusion is complete: Stop Bag]) PRN Medication Order 04/29/2025 04/30/2025 05/01/2025 albuterol (PROVENTIL,VENTOLIN) nebulizer solution 2.5 mg 2.5 mg, nebulization, Every 6 hours PRN, shortness of breath, wheezing, Starting on Tue04/30/25 at 2159, Implement INPATIENT/ED Bronchodilator Clinical Practice Guidelines? Yes 1341 (Given - Provid er: Gina Combs RCP) fentaNYL (SUBLIMAZE) injection 25 mcg (CANCELED) 25 mcg, intravenous, Every 5 min PRN, Pain Scale 1-5, Starting on Tue04/30/25 at 1356, PACU (only), Up to a maximum dose of 150 mcg. Look-alike/sound-alike medication - verify indication for use. 1414 (Given - Provider: Selvin Doss RN) heparin (porcine) 2,500 Units in sodium chloride 0.9 % 250 mL irrigation (CANCELED) Continuous PRN, Starting on Tue04/30/25 at 1326, Intra-op 1326 (New Bag - Provider: Sadie Piper MD - Comment: FOR POWER INJECTOR)1400 (Due: Order Ending - Provider: Automatic Transfer Provider - Comment: [Order ends at this time. Document the following action when infusion is complete: Stop Bag]) heparin 10,000 units in 0.9% sod chl 1000 mL irrigation (bag) (CANCELED) As needed, Starting on e 04/30/25 at 1326, Intra-op 1326 (Given - Provider: Sadie Piper MD - Comment: GIVEN TO THE STERILE FIELD) hydrALAZINE (APRESOLINE) injection 10 mg 10 mg, intravenous, Every 6 hours PRN, high blood pressure, Starting on Tue04/30/25 at 1412, For systolic blood pressure greater than 160 mmHg, hold for Hr > 100 Look-alike/sound-alike medication - verify indication for use. Administer IV doses as a slow IV push; maximum rate: 5 mg/minute. HYDROcodone-acetaminophen (NORCO) 5-325 mg per tablet 1 tablet 1 tablet, oral, Every 6 hours PRN, severe pain - pain scale 7-10, Starting on Tue04/30/25 at 2159, Look-alike/sound-alike medication - verify indication for use. iodixanoL (VISIPAQUE) 320 mg iodine/mL injection (CANCELED) As needed, Starting on Tue04/30/25 at 1327, Intra-op 1327 (Given - Provider: Sadie Piper MD - Comment: GIVEN AT STERILE FIELD) ipratropium-albuteroL (DUONEB) 0.5 mg-3 mg(2.5 mg base)/3 mL nebulizer solution 3 mL (COMPLETED) 3 mL, nebulization, Once as needed, shortness of breath, Starting on Tue04/30/25 at 1030, For 1 dose, Pre-op, Implement INPATIENT/ED Bronchodilator Clinical Practice Guidelines? Yes 1059 (Given - Provider: Christina Mora RN) labetaloL (NORMODYNE,TRANDATE) injection 20 mg 20 mg, intravenous, Every 6 hours PRN, high blood pressure, Starting on Tue04/30/25 at 1412, For systolic blood pressure greater than 160 mmHg, hold for Hr < 60 Look-alike/sound-alike medication - verify indication for use. ondansetron (PF) (ZOFRAN) injection 4 mg 4 mg, intravenous, Every 4 hours PRN, nausea, Starting on Tue04/30/25 at 1401, Intravenous administration preferred to be given over 2-5 minutes. sodium chloride 0.9 % flush 3 mL 3 mL, intravenous, As needed, line care, before and after each intermittent use, Starting on Tue04/30/25 at 1401 sodium chloride 0.9% (NS) irrigation bottle (CANCELED) As needed, Starting on 6/3/25 at 1329, Intra-op 1329 (Given - Provider: Sadie Piper MD - Comment: GIVEN TO THE STERILE FIELD) FOR RECORDS PERTAINING TO PATIENTS WHO ARE [...] BE BASED ON THE PRIMARY CLINICAL RECORDS. [facility] [employer] [facility]. provides no warranty or guarantee of the accuracy or completeness of information in this document.
--- OUTSIDE RECORDS SUMMARY | 2025-06-08 17:31 | XMS_ITS | Patient Health Record ---
Author Organization [facility] [place] Address [address] [place] [address] Care Team Providers Care Wood Planer Name Role Phone Richemrach VIRGENKathie Primary Care Provider Unavail able Josué Shea Unavailable [phone] Allergies No Known Allergies Results Component Value Reference Range Notes INFLUENZA A AND B AG Reviewed date:02/24/2025 04:01:58 PM Interpretation: Performing Lab: Notes/Report: [facility] , Influenza Virus A Antigen Negative [...] Performing Lab: see note ML - [facility] LB LACTATE or LACTIC ACID Reviewed date:02/24/2025 04:01:58 PM Interpretation: Performing Lab: Notes/Report: [facility] , Lactate/Lactic Acid 0.7 0.4-2.0 mmol/L Performing Lab: see note ML - [facility] LB SARS-CoV-2 Ag* Reviewed date:02/24/2025 04:01:58 PM Interpretation: Performing Lab: Notes/Report: [facility] , SARS-CoV-2 Ag NEGATIVE NEGATIVE This [...] is revoked sooner. Performing Lab: see note - [facility] LB Urine Culture, Routine Reviewed date:02/26/2025 09:38:48 PM Interpretation: Performing Lab: Notes/Report: [facility] , Urine Culture, Routine See Below For Report Urine Culture, Routine Urine Culture, Routine Mixed urogenital juanis Urine Culture, Routine Urine Culture, Routine Less than 10,000 colonies/mL Urine Culture, Routine Urine Culture, Routine Performed at: [facility] Urine Culture, Routine Urine Culture, Routine [address] [place] [address] [phone] Urine Culture, Routine Urine Culture, Routine Livestock Brands Inspector: Eitan Damon PhD, Phone: [phone] Urine Culture, Routine Performing Lab: see note LC - [facility] LB SEE REPORT - Livestock Handler Id information not found for OBX-specific senior interactive producer legend Epithelial Cells Reviewed date:02/27/2025 07:46:31 PM Interpretation: [...] 3 See Below For Report Result 3 FITNESS LEADER Performing Lab: see note LC - [facility] LB Result 4 Reviewed date:02/27/2025 07:46:31 PM Interpretation: Performing Lab: Notes/Report: [facility] , Result 4 See Below For Report Result 4 FITNESS LEADER Performing Lab: see note LC - [facility] [...] WILL FOLLOW Lower Respiratory Culture Performed at: [facility] Lower Respiratory Culture WILL FOLLOW Lower Respiratory Culture [address] [place] [address] [phone] Lower Respiratory Culture WILL FOLLOW Lower Respiratory Culture Livestock Brands Inspector: Iván Damon PhD, Phone: [phone] Lower Respiratory Culture WILL FOLLOW Performing Lab: see note LC - [facility] LB SEE REPORT - Livestock Handler Id information not found for OBX-specific senior interactive producer legend CBC AUTO DIFF Reviewed date:03/03/2025 03:33:06 PM Interpretation: Performing Lab: Notes/Report: [facility] , White Blood Count 6.7 4.0-11.0 [...] fL Performing Lab: see note ML - [facility] LB PROF CHEM 8 (BAS METB) Reviewed date:03/03/2025 03:33:06 PM Interpretation: Performing Lab: Notes/Report: [facility] , Sodium 145 136-145 mmol/L Potassium [...] 8.5 8.5-10.1 mg/dL Performing Lab: see note - [facility] LB Manual Differential Reviewed date:03/03/2025 03:33:06 PM Interpretation: Performing Lab: Notes/Report: [facility] , Segmented Neutrophils % Manual 90.0 [...] 10 3/uL Performing Lab: see note - [facility] LB PROF CHEM 8 ([employer] METB) Reviewed date:02/27/2025 07:46:31 PM Interpretation: Performing Lab: Notes/Report: [facility] , Sodium 145 136-145 mmol/L Potassium [...] Performing Lab: see note ML - [facility] LB CBC AUTO DIFF Reviewed date:02/27/2025 07:46:31 PM Interpretation: Performing Lab: Notes/Report: [facility] , White Blood Count 6.8 4.0-11.0 [...] 3/uL Performing Lab: see note ML - [facility] LB PROF CHEM 8 (BAS METB) Reviewed date:02/26/2025 04:26:35 PM Interpretation: Performing Lab: Notes/Report: [facility] , Sodium 144 136-145 mmol/L Potassium [...] 8.8 8.5-10.1 mg/dL Performing Lab: see note ML - [facility] LB CBC AUTO DIFF Reviewed date:02/26/2025 04:26:35 PM Interpretation: Performing Lab: Notes/Report: [facility] , White Blood Count 7.6 4.0-11.0 [...] 3/uL Performing Lab: see note ML - [facility] LB PROF CHEM 8 (BAS METB) Reviewed date:02/25/2025 09:27:38 PM Interpretation: Performing Lab: Notes/Report: [facility] , Sodium 144 136-145 mmol/L Potassium [...] mg/dL Performing Lab: see note ML - [facility] LB CBC AUTO DIFF Reviewed date:02/25/2025 09:27:38 PM Interpretation: Performing Lab: Notes/Report: [facility] , White Blood Count 6.5 4.0-11.0 [...] 0.00-0.03 10 3/uL Performing Lab: see note - [facility] LB White Blood Cells Reviewed date:02/27/2025 07:46:31 PM Interpretation: Performing Lab: Notes/Report: [facility] , White Blood Cells See Below For Report White Blood Cells White Blood Cells Many White Blood Cells Performing Lab: see note LC - [facility] LB PROF CHEM 8 (BAS METB) Reviewed date:02/24/2025 04:01:58 PM Interpretation: Performing Lab: Notes/Report: [facility] , Sodium 142 136-145 mmol/L Potassium [...] 9.0 8.5-10.1 mg/dL Performing Lab: see note - [facility] LB MAGNESIUM Reviewed date:02/24/2025 04:01:58 PM Interpretation: Performing Lab: Notes/Report: [facility] , Magnesium 1.7 1.8-2.4 mg/dL Performing Lab: see note [facility] LB CBC AUTO DIFF Reviewed date:02/24/2025 04:01:58 PM Interpretation: Performing Lab: Notes/Report: [facility] , White Blood Count 8.6 4.0-11.0 [...] Performing Lab: see note ML - [facility] LB PROF CHEM 8 (BAS METB) Reviewed date:02/28/2025 05:22:07 PM Interpretation: Performing Lab: Notes/Report: [facility] , Sodium 144 136-145 mmol/L Potassium [...] mg/dL Performing Lab: see note ML - [facility] LB CBC AUTO DIFF Reviewed date:02/28/2025 05:22:07 PM Interpretation: Performing Lab: Notes/Report: [facility] , White Blood Count 6.8 4.0-11.0 [...] 3/uL Performing Lab: see note ML - [facility] LB Reason For Referral No Information Medications [...] Status Comme nts Arexvy Unknown 08/17/2024 Administered LiveRe Syringe Pre -Filled 30 mcg/0.3 mL Unknown [...] Problem Status W/U Status Risk Notes Problem 96362830 Essential (primary) hypertension (I10) Active confirmed Problem 08681733 Chronic rhinitis (J31.0) Active confirmed Problem Centrilobular emphysema (23984615) Centrilobular emphysema (J43.2) Active confirmed Prior treatment: Symbicort + Spiriva, Dulera, Breo, Advair Problem 875401380 Chronic obstructive pulmonary disease with (acute) exacerbation (J44.1) Active confirmed Problem Chronic respiratory failure (25319841) Chronic respiratory failure with hypoxia (J96.11) Active confirmed Problem 06826666 Anorexia (R63.0) Active confirmed Problem Long-term current use of inhaled steroid (644870479) FDC (current) use of inhaled steroids (Z79.51) Active confirmed Problem Pneumonia (590825774) Pneumonia (J18.9) Active confirmed Problem History of pneumothorax (268811447) History of pneumothorax (Z87.09) Active confirmed Left spontaneous pneumothorax, s/p thoracostomy tube 2012 Problem Leukocytosis (315196354) Leukocytosis (D72.829) Active confirmed Problem Malnutrition (3771719) Malnutrition (E46) Active confirmed Problem Ex-tobacco user (finding) (371408939) History of tobacco abuse (Z87.891) Active confirmed 2ppd x40 years, quit 11/2015 Problem 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 Problem Atelectasis (13403543) Collapse of lung tissue (J98.11) Active confirmed [...] Encounter Location Date Provider Diagnosis Pulmonary Medicine [facility] [address] [place] [address] 01/24/2025 [facility] Pul[facility] Medicine [facility] [address] [place] [address] 03/25/2025 [facility] Pul[facility] Medicine [facility] [address] [place] [address] 04/23/2025 [facility] Pulmonary Medicine [facility] [address] [place] [address] 05/20/2025 Josué [facility] Chronic respiratory failure with hypoxia J96.11 ; Centrilobular emphysema J43.2 ; History of tobacco abuse Z87.891 ; Collapse of lung tissue J98.11 ; 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 ; continuous churn buttermaker (current) use of inhaled steroids Z79.51 and History of pneumothorax Z87.09 [facility] [address] [place] [address] 08/08/2024 Josué [facility] Chronic respiratory failure with hypoxia J96.11 ; Centrilobular emphysema J43.2 ; Collapse of lung tissue J98.11 ; 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 ; FDC (current) use of inhaled steroids Z79.51 ; FDC (current) use of systemic steroids Z79.52 ; History of tobacco abuse Z87.891 ; History of pneumothorax Z87.09 ; Encounter for screening for malignant neoplasm of respiratory organs Z12.2 and Encounter for immunization Z23 Assessments Encounter Date Diagnosis (ICD Code) Assessment Notes Treatment Notes Treatment Clinical Notes Section Notes 08/08/2024 Chronic respiratory failure with hypoxia (ICD-10 - J96.11) Mjjq-pg-bmhp encounter performed with the patient to document [...] respiratory failure with hypoxia (ICD-10 - J96.11) Ipfw-dc-bgmm encounter performed with the patient to document [...] lobe of lung (ICD-10 - Q33.1) 08/08/2024 FDC (current) use of inhaled steroids (ICD-10 - Z79.51) Patient was counseled to rinse & gargle with water after inhaled corticosteroid use. 08/08/2024 continuous churn buttermaker (current) use of systemic steroids (ICD-10 - Z79.52) Discussed adverse effects of half-way systemic steroids including, but not limited to: increased risk of cataracts, elevated blood sugars/worsening of underlying diabetes mellitus, impaired wound healing, gastrointestinal ulcers, osteoporosis. 05/20/2025 continuous churn buttermaker (current) use of inhaled steroids (ICD-10 - [...] MEDIBLUE DUAL ADV PRIMARY MEDICARE [address] [place] [address] [id number] [facility] Ted Rajput Self - patient is the insured 4 MEDICAID [place] 2ND INS [address] OFFICE OF [place], [place] [id number] Ted Rajput Self - patient is the insured Medical (General) History Medical History History ICD Code Centrilobular emphysema J43.2 Chronic respiratory failure with hypoxia J96.11 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 Collapse of lung tissue J98.11 Adenomatous polyp of rectum D12.8 Gastroesophageal reflux disease K21.9 Atrial fibrillation, unspecified I48.91 Bilateral carpal tunnel syndrome G56.03 Chronic lumbar radiculopathy M54.16 Gout M10.9 Hyperlipidemia E78.5 FDC (current) use of inhaled stero ids Z79.51 continuous churn buttermaker (current) use of systemic ster oids Z79.52 History of tobacco abuse Z87.891 History of pneumothorax Z87.09 Prostate cancer C61 Pneumonia J18.9 Surgical History Surgery Date(Month/Year) cyst removal-chest/face right foot surgery right hip replacement left hip replacement left thoracostomy tube placement: second chad spontaneous pneumothorax 2013 Bronchoscopy 03/28/2019 prostate biopsy 2022 Cardiac Catheter[facility] 04/05/2025 abdominal aortic aneurysm repair 025 Hospitalization History Reason Date(Month/Year) Fall-TBH 01/13/2025
--- OUTSIDE RECORDS SUMMARY | 2025-06-08 17:31 | XMS_ITS | Patient Health Record ---
Author Organization [facility] Address [address] [place] [address] Care Team Providers Care Salon Sales Consultant Name Role Phone James Mart Unavailable [phone] Self, Referral Unavailable Unavailable Mariel Alyson Unavailable [phone] Harmony Tran Unavailable Results Component Value Reference Range Notes SCC- HIP W/ PELVIS, RIGHT 73 502 Reviewed date:02/14/2025 03:56:24 PM Interpretation: Performing Lab: Notes/Report: Reason For Referral No Information Problems Problem Type SNOMED Code ICD Code Onset Dates Problem Status W/U Status Risk Notes Problem 071862337 Nausea (R11.0) Active confirmed Problem 687250150 Fall (on) (from) other stairs and steps, initial encounter (W10.8XXA) Active confirmed Problem 878882813 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, initial encounter (M97.01XA) Active confirmed Problem 984133096 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, subsequent encounter (M97.01XD) Active confirmed Problem 42482138 Malnutrition, unspecified type (E46) Active confirmed Encounters Encounter Location Date Provider Diagnosis [facility] Out[facility] [address] [place] [address] 01/14/2025 Harmonynyla Fernandesitekike 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, initial encounter M97.01XA and Fall (on) (from) other stairs and steps, initial encounter W10.8XXA [facility] [address] [place] [address] [place] [address] 02/11/2025 Harmony xxLisaiteland 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, subsequent encounter M97.01XD [facility] Inpatient [address] [place] [address] 02/25/2025 Harmony leighArelis Malnutrition, unspecified type E46 ; Nausea R11.0 and 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, subsequent encounter M97.01XD [facility] [address] [facility] [place] [address] [place] [address] 04/01/2025 James Mart Acute right hip pain M25.551 and 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, subsequent encounter M97.01XD [facility] [address] [facility] [address] [place] [address] 05/15/2025 Alyson Fultoncomb Periprosthetic fracture around internal prosthetic right hip [...] hip joint, subsequent encounter (ICD-10 - M97.01XD) 02/11/2025 Other Patient is now a month [...] x-rays and reassess his progress. Import medication 05/15/2025 Other His fracture is healed however [...] physician, Dr. Barron MD. Plan Of Treatment Pending Test Test Name Order Date PT EVAL AND TREAT 05/15/2025 SCC- HIP W/ PELVIS, RIGHT 44831 04/01/20 SCC- HIP W/ PELVIS, RIGHT 84777 05/15/20 Next Appt Details Provider Name:James Malik and, 07/17/2025 10:45:00 AM, [facility] , [address], [address], Insurance Providers Payer Name Payer Address Payer Phone Subscriber Number Group Number Insured Name Patient Relationship to Insured Coverage Start Date Coverage End Date Medicare [place] [employer] [address] [place] [address] [id number] [facility] MATEO STEARNS Self - patient is the insured 4 [place] Dept of Medicaid [address] [place] [address] [id number] MATEO STEARNS Self - patient is the insured [facility] [address] [place] [address] [id number] MATEO STEARNS Self - patient is the [...]
--- OUTSIDE RECORDS SUMMARY | 2025-06-08 17:31 | XMS_ITS | Clinical Summary ---
Author Organization [facility] Address [address] [place], [place] [address] Care Team Providers Care Grant Manager Name Role Phone Kathie Sánchez Jessika VIRGEN Primary Care Provider [phone] Umu Nicolas Unavailable Unavailable Allergies No known [...] is lower risk 7 06/21/2024 Data from: https://www.neighborhoodatlas.medicine.[facility].edu/. Last address used for calculation [address] [place] [address] 06/21/2024 Sex and Gender Information Value Date [...] AM EDT Office Visit Radiation Oncology [address] [place] [address] Severo French MD [address] [place] [address] 6 month Follow up 06/12/2025 11:00 AM EDT Visit (SP) Office Hematology/Oncology [address] [place] [address] Cat Baker, SIEVE REPAIRER.INSURANCE UNDERWRITER [address] [place] [address] survivorship Health Maintenance Due Date Last Done Comments Abdominal Aortic Aneurysm Screening 1960 Annual PCP Team Chronic Dise ase Visit 1976 Anxiety Screening 1976 Depression Screening 1976 Hepatitis C Screening 1976 CT Colonography 2003 Cologuard (FIT-DNA) 2003 Colonoscopy 2003 Colorectal Cancer Screening 2003 Fecal Occult Blood 2003 Sigmoidoscopy 2003 Advance Directive Discussion 11/28/2024 Medicare Advantage Annual We humphreyness Visit 11/28/2024 Covid-19 Vaccine (2023-2 5 season) 2025 09/21/2024, 09/25/2022, 05/26/2021, Additional history exists Influenza Vaccine (#1) 2025 Lung Cancer Screening 02/27/2026 02/27/2025 Diabetes Screening 05/01/2028 05/01/2025, 0 04/30/2025, 04/05/2025, Additional history exists Lipid Screening 04/05/2030 04/05/2025 Prostate Cancer Screening Discussion 06/05/2030 06/05/2025, 12/05/2024, 09/07/2024 DTaP,Tdap,Td Vaccine (2 - Td or Tdap) 03/11/2031 03/11/2021 Shingrix Vaccine Completed 09/17/2023, 07/04/2023 Pneumococcal Vaccine: 50+ Completed 08/17/2024 RSV Vaccine Completed 08/17/2024 Procedures Procedure Name Priority Date/Time Associated Diagnosis Comments PSA (OUTSIDE) Routine 06/05/2025 from Last 3 Months Results * PSA (OUTSIDE) (06/05/2025) PSA. 0.8 BLOOD SPECIMEN / Unknown 06/05/2025 [facility] Provider LABORATORY Final Result from Last 3 Months Insurance [employer] MEDICARE ADVANTAGE O Care Teams Grant Manager Relationship Specialty Start Date End Date Kathie Sánchez, INSURANCE UNDERWRITER [address] [place] [address] PCP - General Family Medicine 06/21/24 Umu Nicolas LSW Manager Of Environmental Services 09/18/24
--- OUTSIDE RECORDS SUMMARY | 2025-06-08 17:31 | XMS_ITS | Encounter Summary ---
Author Organization [facility] Address [address] [place] [address] Care Team Providers Care Railroad Operating Engineer Name Role Phone Kathie Sánchez NP Unavailable [phone] Kathie Sánchez NP Unavailable [phone] Curt De Dios MD Primary Care Provider [phone] Kathie Sánchez NP Unavailable [phone] Lissa Garza MA Unavailable [phone] Andrade Pendleton OD Unavailable Encounter Details [...] often do you attend chur ch or christian services? Never 02/28/2024 Do you belong to any clubs o r organizations such as shinto groups, unions, fraternal or athletic groups, or [...] Recorded Patient Health Questionnaire-2 Score 0 02/28/2024 [facility] - Occupational [...] place to sleep or slept in a assisted (including now)? No 02/28/2024 Sex and Gender [...] EDT Narrative 04/09/2024 3:21 [place] [address] CT Scan Report Signed Patient: ALPHONSE STEARNS MR#: [id number] : 1960 Acct:[id number] Age/Sex: 63 / M ADM Date: 04/09/24 Loc: CT Attending Dr: Josué Alves D.O. Ordering Physician: Josué Alves D.O. Date of Service: 04/09/24 Procedure(s): CT chest wo con Accession Number(s): [id number] cc: Kathie Sánchez NP The [address] [address] Patient Name: ALPHONSE STEARNS MRN: [id number] date: 1960 Sex: M Assigned Patient Location: CT Current Patient Location: CT Accession/Order Number: [id number] Exam Date: 04/09/2024 12:51 Report Date: 04/09/2024 [...] Signed By: 04/09/24 1521 DD/ 1518 TD/TT: Perianesthesia Rn: Procedure Note Radiology, Radiologist, - 04/09/[address] [address] [address] Scan Report Signed Patient: ALPHONSE STEARNS WMR#: [id number] : 1960cct:[id number] Age/Sex: 63 / MADM Date: 04/09/24 Loc: CT Attending Dr: Josué Alves D.O. Ordering Physician: Josué Alves D.O. Date of Service: 04/09/24 Procedure(s): CT chest wo con Accession Number(s): [id number] cc: Kathie Sánchez NP [address] [address] Patient Name: ALPHONSE STEARNS MRN: [id number] date: 1960 Sex: M Assigned Patient Location: CT Current Patient Location: CT Accession/Order Number: [id number] Exam Date: 04/09/2024 12:51 Report Date: 04/09/2024 [...] M.D. Signed By:04/09/24 1521 DD/ 1518 TD/TT: Perianesthesia Rn: us Generic External Data Provider [facility] Final Result documented in this encounter Visit Diagnoses Not on filedocumented in this encounter Additional Health Concerns Assessment Noted Time PHQ-9 Depression Total Score: 2 02/28/20 10:39 AM EDT A fall risk assessment has been complete d for the patient 02/28/2024 10:39 AM EDT documented as of this encounter Care Teams Railroad Operating Engineer Relationship Specialty Start Date End Date Kathie Sánchez NP [address] [place] [address] PCP - [place] 12/29/23 Curt De Dios MD [address] [place] [address] PCP - General Family Medicine 02/28/24 05/01/25 Kathie Sánchez NP [address] [place] [address] Nurse Practitioner Family Medicine 10/03/23 Kathie Sánchez NP [address] [place] [address] Nurse Practitioner Family Medicine 02/28/24 Lissa Garza MA [address] [place] [address] Family Medicine 12/05/24 03/06/25 Andrade Pendleton OD [address] [place] [address] Referring Physician Optometry 01/02/25 documented as of this encounter
--- OUTSIDE RECORDS SUMMARY | 2025-06-08 17:31 | XMS_ITS | Clinical Summary ---
Author Organization [facility] Address [address] [place] [address] Care Team Providers Care Maintenance Shop Technician Name Role Phone Curt De Dios MD Primary Care Provider [phone] Allergies No known active allergies Medications albuterol [...] mouth two times daily. Active HYDROcodone-acetam inophen ([place]) 5-325 mg tablet Take 1 tablet by [...] Prostate cancer 02/28/2024 Encounter for subsequent [facility] wellness visit (AWV) in Medicare patient [...] bruising and upcoming surgery will follow-up with consumer safety inspector Carpal tunnel syndrome of right wrist 10/27/2023 [...] Team Description 05/08/2025 10:00 AM EDT Follow-Up [address] [address] Sylvain Fajardo MD PAF (paroxysmal atrial fibrillation) (CMS/HCC) (Primary Dx); Coronary artery disease involving chalkyitsik coronary artery of chalk[place]ik heart without angina pectoris; Shortness of breath; Status post insertion of drug eluting coronary artery stent 05/08/2025 Orders Only [address] [address] ProviderDavey MD 05/02/2025 Telephone [place] [address] [place] [facility] [place] [address] Nereida Pedro MA 04/05/2025 9:00 AM EDT - 04/05/2025 10:00 AM EDT Surgery [facility] Heart and Vascular Center Vascular Lab [address] [place] [address] Sylvain Fajardo MD Coronary angiography 04/05/2025 8:32 AM EDT - 04/06/2025 11:35 PM EDT Hospital Encounter [facility] [address] [facility] [place] [address] Sylvain Fajardo MD Sanaullah, Babar, MD Coronary artery disease (Primary Dx); Abnormal stress test Discharge Disposition: [facility] Facility () 04/05/2025 Travel 04/02/2025 Orders Only [place] [address] [place] [facility] [place] [address] ChunSandra MA Abnormal stress test 04/02/[address] [address] Sandra Mccollum MA 03/15/2025 1:30 PM EDT Office Visit [address] [address] Sylvain Fajardo MD PAF (paroxysmal atrial fibrillation) [...] = 0.6 oz pur e alcohol) former [facility] Utilities Answer Date Recorded In the past 12 months has [employer], oil, or water [employer] threatened to shut off services in your [...] any time in the past 12 m [facility], were you homeless or living in a group home (including now)? No 04/05/2025 Hunger Vital Sign [...] this topic Medical Devices Implanted Type Area Division Manager Device Identifier Shelf Expiration Date Model / Serial / Lot Stent,Synergy Xd Mr [id number] - [id number] - [id number] Implanted:Qty : 1 on 04/05/2025 by Sylvain Fajardo MD at [facility] Drug Eluting Stent Left: Heart [employer] [id number] 12/11/2026 [id number] / [id number] / [id number] Procedures Procedure Name Priority Date/Time Associated Diagnosis [...] - 10.60 10*3/uL 04/05/2025 1:51 PM EDT [facility] ([facility]) RBC 4.03(L) 4.20 - 5.70 10*6/uL 04/05/2025 1:51 PM EDT [facility] ([facility]) Hemoglobin 11.4(L) 13.0 - 17.0 g/dL 04/05/2025 1:51 PM EDT [facility] ([facility]) Hematocrit 36.2(L) 39.0 - 50.0 % 04/05/2025 1:51 PM EDT [facility] ([facility]) MCV 89.8 82.0 - 98.0 fL 04/05/2025 1:51 PM EDT [facility] ([facility]) MCH 28.3 27.0 - 33.0 pg 04/05/2025 1:51 PM EDT [facility] ([facility]) MCHC 31.5(L) 32.0 - 35.0 g/dL 04/05/2025 1:51 PM EDT [facility] ([facility]) RDW 15.0 11.5 - 15.0 % 04/05/2025 1:51 PM EDT [facility] ([facility]) Neutrophils % 76.7(H) 40.0 - 72.0 % 04/05/2025 1:51 PM EDT [facility] ([facility]) Lymphocytes % 14.8(L) 20.0 - 45.0 % 04/05/2025 1:51 PM EDT [facility] ([facility]) Monocytes % 5.9 5.0 - 12.0 % 04/05/2025 1:51 PM EDT [facility] ([facility]) Eosinophils % 0.6 0.0 - 6.0 % 04/05/2025 1:51 PM EDT [facility] ([facility]) Basophils % 0.6 0.0 - 1.0 % 04/05/2025 1:51 PM EDT [facility] ([facility]) Neutrophils Absolute 7.56 1.60 - 7.60 10*3/uL 04/05/2025 1:51 PM EDT [facility] ([facility]) Lymphocytes Absolute 1.46 1.20 - 4.00 10*3/uL 04/05/2025 1:51 PM EDT [facility] ([facility]) Monocytes Absolute 0.58 0.10 - 1.00 10*3/uL 04/05/2025 1:51 PM EDT [facility] ([facility]) Eosinophils Absolute 0.06 0.00 - 0.50 10*3/uL 04/05/2025 1:51 PM EDT [facility] ([facility]) Basophils Absolute 0.06 0.00 - 0.20 10*3/uL 04/05/2025 1:51 PM EDT [facility] ([facility]) Platelets 359 150 - 400 10*3/uL 04/05/2025 1:51 PM EDT [facility] ([facility]) nRBC % 0.0 0 % 04/05/2025 1:51 PM EDT [facility] ([facility]) Immature Granulocytes % 1.4(H) 0.0 - 1.0 % 04/05/2025 1:51 PM EDT [facility] ([facility]) Immature Granulocytes Absolute 0.14 0.00 - 0.20 10*3/uL 04/05/2025 1:51 PM EDT [facility] ([facility]) Blood Venous blood specimen / Unknown Arterial Line / Unknown 04/05/2025 1:14 PM EDT 04/05/2025 1:17 PM EDT us Denis Manuel MD LAB BLOOD ORDERABLES Final Re sult [facility]) [address] [place] [address] * (ABNORMAL) Magnesium (04/05/2025 1:14 PM EDT) Magnesium 1.7(L) 1.9 - 2.7 mg/dL 04/05/2025 1:44 PM EDT [facility] ([facility]) Blood Venous blood specimen / Unknown Arterial Line / Unknown 04/05/2025 1:14 PM EDT 04/05/2025 1:17 PM EDT Denis Manuel MD LAB BLOOD ORDERABLES Final Re sult [facility]) [address] [place] [address] * Hemoglobin A1c (04/05/2025 1:14 PM EDT) Hemoglobin A1C 5.0 4.0 - 6.0 % 04/06/2025 2:09 PM EDT [facility] ([facility]) Estimated Average Glucose 97 mg/dL 04/06/2025 2:09 PM EDT [facility] ([facility]) Blood Venous blood specimen / Unknown Arterial Line / Unknown 04/05/2025 1:14 PM EDT 04/05/2025 1:17 PM EDT Evelin Renteria MD LAB BLOOD ORDERABLES Final Resul t Performing Organization Address City/[facility]/ZIP Co de Phone Number [facility]) [address] [place] [id number] * Lipid panel (04/05/2025 1:14 PM EDT) Triglycerides 61 <150 mg/dL 04/06/2025 12:29 PM EDT [facility] ([facility]) Comment: TRIGLYCERIDE REFERENCE RANGE: 20 YEARS AND OLDER CARDIOVASCULAR RISK LESS THAN 150 mg/dL LOW RISK 150 TO 199 mg/dL BORDERLINE RISK 200 mg/dL AND GREATER HIGH RISK Cholesterol 136 120 - 200 mg/dL 04/06/2025 12:29 PM EDT [facility] ([facility]) LDL Calculated 83 0 - 160 mg/dL 04/06/2025 12:29 PM EDT [facility] ([facility]) HDL 41 23 - 92 mg/dL 04/06/2025 12:29 PM EDT [facility] ([facility]) Non HDL Cholesterol 95 04/06/2025 12:29 PM EDT [facility] ([facility]) Total VLDL-C 12 0 - 40 mg/dL 04/06/2025 12:29 PM EDT [facility] ([facility]) Cholesterol/HDL Ratio 3.3 mg/dL 04/06/2025 12:29 PM EDT [facility] ([facility]) Blood Venous blood specimen / Unknown Arterial Line / Unknown 04/05/2025 1:14 PM EDT 04/05/2025 1:17 PM EDT us Evelin Renteria MD LAB BLOOD ORDERABLES Final Resul t [facility]) [address] [place], [place] [id number] * (ABNORMAL) Comprehensive metabolic panel (04/05/2025 1:14 PM EDT) Sodium 141 136 - 145 mmol/L 04/05/2025 1:44 PM EDT [facility] ([facility]) Potassium 3.7 3.5 - 5.1 mmol/L 04/05/2025 1:44 PM EDT [facility] ([facility]) Chloride 106 98 - 107 mmol/L 04/05/2025 1:44 PM EDT [facility] ([facility]) CO2 27 21 - 31 mmol/L 04/05/2025 1:44 PM EDT [facility] ([facility]) Anion Gap 12 7 - 20 mmol/L 04/05/2025 1:44 PM EDT [facility] ([facility]) BUN 18 7 - 25 mg/dL 04/05/2025 1:44 PM EDT [facility] ([facility]) Creatinine 0.72 0.70 - 1.30 mg/dL 04/05/2025 1:44 PM EDT [facility] ([facility]) BUN/Creatinine Ratio 25.0 07/2025 1:44 PM EDT [facility] ([facility]) Glucose 107(H) 70 - 100 mg/dL 04/05/2025 1:44 PM EDT [facility] ([facility]) Calcium 8.7 8.6 - 10.3 mg/dL 04/05/2025 1:44 PM EDT [facility] ([facility]) AST 15 13 - 39 U/L 04/05/2025 1:44 PM EDT [facility] ([facility]) ALT (SGPT) 9 7 - 52 U/L 04/05/2025 1:44 PM EDT [facility] ([facility]) Alkaline Phosphatase 63 34 - 104 U/L 04/05/2025 1:44 PM EDT [facility] ([facility]) Total Protein 6.3 6.0 - 8.3 g/dL 04/05/2025 1:44 PM EDT [facility] ([facility]) Albumin 3.4(L) 3.5 - 5.7 g/dL 04/05/2025 1:44 PM EDT [facility] ([facility]) Total Bilirubin 0.3 0.3 - 1.0 mg/dL 04/05/2025 1:44 PM EDT [facility] ([facility]) eGFR 100.8 >60.0 mL/min/1. 73m*2 04/05/2025 1:44 PM EDT [facility] ([facility]) Comment:The [facility] s estimated glomerular filtration rate (eGFR) will [...] MD LAB BLOOD ORDERABLES Final Re sult [facility]) [address] [place] [address] * CORONARY ANGIOGRAPHY, LEFT HEART CATH, PERC [...] informed consent. he was brought to the laborer/key man in a fasting state. The left wrist area was prepped and draped in usual fashion. Micropuncture technique was used for access in the left radial artery. A 6-Bangladeshi x 11 cm sheath was placed. Verapamil was given through the sheath, and heparin was administered intravenously. The 6-Bangladeshi JR4 catheter was navigated across the aortic valve over a wire and used to perform left heart catheterization with measurement of pressures. Pullback across the aortic valve was performed with measurement of pressures. Bilateral selective coronary angiography was then performed using 6-Bangladeshi JL4 and JR4 diagnostic catheters. Catheters were removed. Heparin was administered intravenously and therapeutic ACT was confirmed during the rest of the procedure. A 6-Bangladeshi XB 3.5 guiding catheter was advanced and used to engage the left coronary ostium. Baseline FAMILIA flow was 3. A Place[place] coronary guide wire was advanced to the [...] of3 resultswithin the time period is included. [facility] POCT ACT 219(A) 82 - 152 seconds QC Pass/Fail Passed QC LOT # 8 QC Expiration Date 73,125 Blood Venous blood specimen / Unknown 04/05/2025 10:42 AM EDT Narrative Randell Sanchez, [place] - 04/10/2025 11:27 AM EDT Qc lot [id number]; briquette operator [id number] Sylvain Fajardo MD POINT OF [...] 10:55 AM 04/07/2025 1:35 AM Care Teams Maintenance Shop Technician Relationship Specialty Start Date End Date Curt De Dios MD [address] [place] [address] PCP - General Family Medicine 5/10/25
--- OUTSIDE RECORDS SUMMARY | 2025-06-08 17:31 | XMS_ITS | Encounter Summary ---
Author Organization [facility] Address [address] [place] [address] Care Team Providers Care Personnel Generalist Manager Name Role Phone Kathie Sánchez NEWCOMER HOSTESS Unavailable [phone] Kathie Sánchez NEWCOMER HOSTESS Unavailable [phone] Curt De Dios MD Primary Care Provider Kathie Sánchez NP Unavailable [phone] Lissa Garza MA Unavailable [phone] Andrade Pendleton OD Unavailable Encounter Details Date Type Department Care Team (Late st Contact Info) Description 02/25/2025 Orders Only [facility] [address] [place] [address] James Mart MD [address] [place] [address] [place] [address] Social History Tobacco Use Types [...] often do you attend chur ch or moravian services? Never 02/28/2024 Do you belong to any clubs o r organizations such as pentecostal groups, unions, fraternal or athletic groups, or [...] Recorded Patient Health Questionnaire-2 Score 0 02/28/2024 [facility] - [...] place to sleep or slept in a fpc (including now)? No 02/28/2024 Sex and Gender [...] documented as of this encounter Care Teams Personnel Generalist Manager Relationship Specialty Start Date End Date Kathie Sánchez NP [address] [place] [address] PCP - Crow LAFLEUR 12/29/23 Curt De Dios MD [address] [place] [address] PCP - General Family Medicine 02/28/24 05/01/25 Kathie Sánchez NP [address] [place] [address] Nurse Practitioner Family Medicine 10/03/23 Kathie Sánchez NP [address] [place] [address] Nurse Practitioner Family Medicine 02/28/24 Lissa Garza MA [address] [place] [address] Family Medicine 12/05/24 03/06/25 Andrade Pendleton OD [address] [place] [address] Referring Physician Optometry 01/02/25 documented as of this encounter
--- OUTSIDE RECORDS SUMMARY | 2025-06-08 17:31 | XMS_ITS | Encounter Summary ---
Author Organization [facility] Address [address] [place] [address] Care Team Providers Care Jordan Man Name Role Phone Kathie Sánchez NP Unavailable [phone] Kathie Sánchez NP Unavailable [phone] Curt De Dios MD Primary Care Provider Kathie Sánchez NP Unavailable [phone] Lissa Garza MA Unavailable [phone] Andrade Pendleton OD Unavailable Encounter Details Date Type Department Care Team (Late st Contact Info) Description 09/17/2024 Clinisync Result Encounter [facility] External Department Unsolicited Kathie Sánchez NP [address] [place] [address] Social History Tobacco Use Types Packs/Day Years [...] often do you attend chur ch or shinto services? Never 02/28/2024 Do you belong to any clubs o r organizations such as anabaptism groups, unions, fraternal or athletic groups, or [...] Recorded Patient Health Questionnaire-2 Score 0 02/28/2024 [facility] - [...] place to sleep or slept in a long term (including now)? No 02/28/2024 Sex and Gender [...] EDT Narrative 09/17/2024 2:03 PM EDT The [address] [address] XRay Report Signed Patient: ALPHONSE STEARNS MR#: [id number] : 1960 Acct:[id number] Age/Sex: 64 / M ADM Date: 09/14/24 Loc: RAD Attending Dr: Kathie Sánchez OPERATIONS LIEUTENANT Ordering Physician: Kathie Sánchez NP Date of Service: 09/14/24 Procedure(s): XR cervical spine 2-3V Accession Number(s): [id number] cc: Kathie Sánchez NP [place] [address] Patient Name: ALPHONSE STEARNS MRN: [id number] date: 1960 Sex: M Assigned Patient Location: RAD Current Patient Location: Accession/Order Number: [id number] Exam Date: 09/14/2024 09:38 Report Date: 09/17/2024 [...] Signed By: 09/17/24 1403 DD/ 1400 TD/TT: Manager Relocation: Procedure Note Radiology, Radiologist, MD - 09/17/2024 [place] [address] XRay Report Signed Patient: ALPHONSE STEARNS WMR#: [id number] : 1960cct:[id number] Age/Sex: 64 / MADM Date: 09/14/24 Loc: RAD Attending Dr: Kathie Sánchez OPERATIONS LIEUTENANT Ordering Physician: Kathie Sánchez NP Date of Service: 09/14/24 Procedure(s): XR cervical spine 2-3V Accession Number(s): [id number] cc: Kathie Sánchez NP [address] [address] Patient Name: ALPHONSE STEARNS MRN: [id number] date: 1960 Sex: M Assigned Patient [facility]: [facility] Current Patient Location: Accession/Order Number: [id number] Exam Date: 09/14/2024 09:38 Report Date: 09/17/2024 [...] M.D. Signed By:09/17/24 1403 DD/ 1400 TD/TT: Manager Relocation: Kathie Sánchez NP [facility] Final Result documented in this encounter Visit Diagnoses Not on filedocumented in this encounter Additional Health Concerns Assessment Noted Time PHQ-9 Depression Total Score: 2 02/28/20 10:39 AM EDT A fall risk assessment has been complete d for the patient 02/28/2024 10:39 AM EDT documented as of this encounter Care Teams Jordan Man Relationship Specialty Start Date End Date Kathie Sánchez NP [address] [place] [address] PCP - Crow LAFLEUR 12/29/23 Curt De Dios MD [address] [place] [address] PCP - General Family Medicine 02/28/24 05/01/25 Kathie Sánchez NP [address] [place] [address] Nurse Practitioner Family Medicine 10/03/23 Kathie Sánchez NP [address] [place] [address] Nurse Practitioner Family Medicine 02/28/24 Lissa Garza MA [address] [place] Family Medicine 12/05/24 03/06/25 Andrade Pendleton OD [address] [place] [address] Referring Physician Optometry 01/02/25 documented as of this encounter
--- OUTSIDE RECORDS SUMMARY | 2025-06-08 17:32 | XMS_ITS | Clinical Summary ---
Author Organization [facility] Address [address] [place] [address] Care Team Providers Care Compensation Associate Name Role Phone Kathie Sánchez SALES RELATIONSHIP MANAGER Unavailable [phone] Kathie Sánchez SALES RELATIONSHIP MANAGER Unavailable [phone] Kathie Sánchez SALES RELATIONSHIP MANAGER Unavailable [phone] Andrade Pendleton OD Unavailable Allergies No known active [...] MG tablet 03/01/20 25 Active HYDROcodone-acet aminophen ([place]) 5-325 MG tabletIndication s:Other chronic pain Take [...] Lung mass 02/28/2024 Encounter for subsequent [facility] wellness visit (AWV) in Medicare patient [...] Encounters Date Type Department Care Team Description 06/05/2025 Clinisync Result Encounter [facility] External Department Unsolicited Provider, Generic External Data 05/02/2025 Patient Outreach [facility] [address] [place] [address] Sri Hicks, PHOTOLITHOGRAPHIC STRIPPER 04/11/2025 Telephone [facility] [address] [place] [address] Melissa Meyers NP 04/08/2025 [facility] [address] [place] [address] Sri Hicks, PHOTOLITHOGRAPHIC STRIPPER 04/04/2025 Clinisync Result Encounter [facility] External Department Unsolicited Robin Epps MD 03/29/2025 Clinisync Result Encounter [facility] External Department Unsolicited Provider, Generic External Data 03/29/2025 Clinisync Result Encounter [facility] External Department Unsolicited Provider, Generic External Data 03/12/2025 Abstract [facility] [address] [facility] [address] [place] [address] Unallocated, Noms MD Mi from Last 3 Months Immunizations Immunization Administration [...] often do you attend chur ch or jew services? Never 02/28/2024 Do you belong to any clubs o r organizations such as taoist groups, unions, fraternal or athletic groups, or [...] Recorded Patient Health Questionnaire-2 Score 0 02/28/2024 [facility] of Occupat ional Health - Occupational Stress [...] Screening 10/19/2032 Pneumococcal Vaccine: 65+ Years Completed Influenza Vaccine Discontinued Procedures Procedure Name Priority Date/Time Associated Diagnosis Comments MHPT PSA, DIAGNOSTIC Routine 06/05/2025 8:53 AM EDT ALL BASIC METABOLIC PANEL Routine 04/04/2025 8:47 AM EDT ALL CBC WITH AUTO DIFF Routine 04/04/2025 8:47 AM EDT CA ECHO DOPPLER COMPLETE 03/29/2025 5:41 PM EDT NM SANDI PERF SPECT REST STR 03/29/2025 1:42 PM EDT from Last 3 Months Results * MHPT PSA, DIAGNOSTIC (06/05/2025 8:53 AM EDT) Pathologist [facility] PROSTATE SPECIFIC ANTIGEN DX 0.80 <=4.00 ng/mL [facility] 06/05/2025 8:53 AM EDT 06/05/2025 8:54 AM EDT Narrative [facility] - 06/05/2025 10:15 AM EDT Generic External Data Provider [facility] F inal Result [facility] * (ABNORMAL) ALL CBC WITH AUTO DIFF [...] Narrative [facility] - 04/04/2025 9:01 AM EDT us Robin Epps MD [facility] Final Result [facility] * (ABNORMAL) ALL BASIC METABOLIC PANEL [...] 0.70 - 1.30 mg/dL [facility] EGFR-AF LUXEMBOURGER >60 >=60 mL/min/1.7 3m 2 TBH TBH EGFR-NON AF LUXEMBOURGER >60 >=60 mL/min/1.7 3m 2 [facility] BUN CREATININE RATIO 19.8 [facility]H CALCIUM 9.2 8.5 - 10.1 mg/dL [facility] 04/04/2025 8:47 AM EDT 04/04/2025 8:51 AM EDT Narrative [facility] - 04/04/2025 10:29 AM EDT Robin Epps MD [facility] Final [facility] * CA ECHO DOPPLER COMPLETE (03/29/2025 5:41 PM EDT) Anatomical Region Laterality Modality Other 03/29/2025 5:41 PM EDT Narrative 03/29/2025 5:43 [place] [address] Cardiology Report Signed Patient: MATEO STEARNS MR#: [id number] : 1960 Acct:[id number] Age/Sex: 64 / M ADM Date: 03/29/25 Loc: CARD Attending Dr: RENE CLARK Ordering Physician: RENE CLARK Date of Service: 03/29/25 Procedure(s): CA echo doppler complete Accession Number(s): [id number] cc: Kathie Sánchez SALES RELATIONSHIP MANAGER; RENE CLARK Patient Name: MATEO STEARNS MR#: [id number] : 1960 Exam Date: 03/29/2025 Ordering Doctor: [...] Area (VTI): 3.36 cm2, 3.36 cm2 Deceleration [place]: Pressure Half-Time: Peak Velocity(Antegrade Flow): 0.82 m/s [...] M.D. Signed By: 03/29/251742 DD/ 40 TD/TT: Flitch Hanger: Procedure Note Radiology, Radiologist, MD - 03/29/2025 [place] [address] Cardiology Report Signed Patient: MATEO STEARNS WMR#: [id number] : 8Acct:[id number] Age/Sex: 64 / MADM Date: 03/29/25 Loc: CARD Attending Dr: RENE CLARK Ordering Physician: RENE CLARK Date of Service: 03/29/25 Procedure(s): CA echo doppler complete Accession Number(s): [id number] cc: Kathie Sánchez SALES RELATIONSHIP MANAGER; RENE CLARK Patient Name: MATEO STEARNS MR#: [id number] : 1960 Exam Date: 03/29/2025 Ordering Doctor: [...] Area (VTI): 3.36 cm2, 3.36 cm2 Deceleration [place]: Pressure Half-Time: Peak Velocity(Antegrade Flow): 0.82 m/s [...] 17:41 Dictated By: Evelin Renteria M.D. Signed By:03/29/25 1743 DD/ 174 TD/TT: Flitch Hanger: us Generic External Data Provider [facility] Final Result * NM SANDI PERF SPECT REST STR (03/29/2025 1:42 PM EDT) Anatomical Region Laterality Modality Other 03/29/2025 1:42 PM EDT Narrative 03/29/2025 1:43 PM EDT The [address] [address] Nuclear Medicine Report Signed Patient: MATEO STEARNS MR#: [id number] : 1960 Acct:[id number] Age/Sex: 64 / M ADM Date: 03/29/25 Loc: CARD Attending Dr: RENE CLARK Ordering Physician: RENE CLARK Date of Service: 03/29/25 Procedure(s): NM sandi perf SPECT rest str Accession Number(s): [id number] cc: Kathie Sánchez SALES RELATIONSHIP MANAGER; RENE CLARK Patient Name: MATEO STEARNS MR#: [id number] : 1960 Exam Date: 03/29/2025 Ordering Doctor: [...] the study was pending per attending physician RUST. For more details, please see separate cardiac [...] Signed By: 03/29/25 1343 DD/ 1342 TD/TT: Flitch Hanger: Procedure Note Radiology, Radiologist, - 03/29/2025 [place] [address] Nuclear Medicine Report Signed Patient: MATEO STEARNS WMR#: [id number] : 8Acct:[id number] Age/Sex: 64 / MADM Date: 03/29/25 Loc: CARD Attending Dr: RENE CLARK Ordering Physician: RENE CLARK Date of Service: 03/29/25 Procedure(s): NM sandi perf SPECT rest str Accession Number(s): [id number] cc: Kathie Sánchez NP; RENE CLARK Patient Name: MATEO STEARNS MR#: [id number] : 1960 Exam Date: 03/29/2025 Ordering Doctor: [...] the study was pending per attending physician RUST. For more details,please see separate cardiac stress [...] M.D. Signed By:03/29/25 1343 DD/ 1342 TD/TT: Flitch Hanger: Generic External Data Provider [facility] Final Result from Last 3 Months Insurance [employer] MEDICARE ADVANTAGE MEDICAID [place] Care Teams Compensation Associate Relationship Specialty Start Date End Date Kathie Sánchez NP [address] [place] [id number] ANIYAH - Crow LAFLEUR 12/29/23 Kathie Sánchez NP [address] [place] [address] Nurse Practitioner Family Medicine 10/03/23 Kathie Sánchez NP [address] [place] [address] Nurse Practitioner Family Medicine 02/28/24 Andrade Pendleton OD [address] [place] [phone] Referring Physician Optometry 01/02/25
--- NOTE | 2025-06-08 17:35 | ECG_ITS ---
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: : 1960 Requested By: 1854 Order Number: [id number] Reading MD: IVAN HERNÁNDEZ Measurements Intervals [place] Rate: 182 P: -05365 DC: -50416 QRS: 86 QRSD: 118 T: -76 QT: 282 QTc: 378 Interpretive Statements 98394 Probable Atrial fibrillation with rapid ventricular response 2540 Incomplete left bundle branch block [address] depression, consistent with subendocardial injury 96577 ST elevation, consistent with subepicardial injury, pericarditis, or early repolarization 0102 ARTIFACT PRESENT 9150 abnormal ECG Compared to ECG 11/28/2024 15:26:32 Left bundle-branch block now present ST (T wave) deviation now present Sinus rhythm no longer present Electronically Signed On 06-11-2025 16:23:43 EDT by IVAN HERNÁNDEZ
--- NOTE | 2025-06-08 17:35 | XR_ITS ---
The [address] [address] Patient Name: MATEO STEARNS MRN: [id number] date: 1960 Sex: M Assigned Patient Location: ER Current Patient Location: ER Accession/Order Number: [id number] Exam Date: 06/08/2025 18:05 Report Date: 06/08/2025 18:07 At the request of: REANNA JEAN MD Procedure: XR chest 1V XR chest 1V 06/08/2025 5:50 PM SIGNS AND SYMPTOMS: ^sob PROTOCOL: Frontal radiograph of the chest COMPARISON: 02/27/2025 FINDINGS: The trachea is midline. The heart and mediastinal structures are within normal limits. Airspace opacity is noted in the right lung base with a small right-sided pleural effusion, pneumothorax which is new when compared to the prior CT. The bony thorax is intact. XR/XR chest 1V IMPRESSION: Right basilar airspace opacity suspicious for pneumonia. Impression dictated by: Noe Hewitt M.D. 06/08/2025 6:07 PM Dictation Location: [place] [address] Electronically authenticated by: [id number] Y Date: 06/08/2025 18:07
[2025-06-08 17:46] LABS: Hematocrit 38.4 % (42.0-54.0); Hemoglobin 12.5 g/dL (14.0-18.0); Immature Granulocytes Abs Auto 0.04 10^3/uL (0.00-0.03); Immature Granulocytes Pct Auto 0.4 % (0.0-0.5); Lymphocytes Absolute Auto 1.7 10^3/uL (1.2-3.8); Mean Corpuscular HGB Conc 32.6 g/dL (29.9-35.2); Mean Corpuscular Hemoglobin 27.1 pg (25.9-34.0); Mean Corpuscular Volume 83.3 fL (80.0-94.0); Platelet Count 299 10^3/uL (150-450); Red Blood Count 4.61 10^6/uL (4.70-6.10); White Blood Count 9.7 10^3/uL (4.0-11.0)
[2025-06-08] MEDS: 0.9 % SODIUM CHLORIDE 1,000 ML 500 ML IV (17:50)
[2025-06-08 17:56] LABS: INR 1.22; Prothrombin Time 12.7 sec (9.0-11.6)
[2025-06-08 18:04] LABS: Alanine Aminotransferase 91 U/L (16-63); Albumin Globulin Ratio 0.5; Albumin Level 2.3 g/dL (3.4-5.0); Alkaline Phosphatase 95 U/L (46-116); Anion Gap 14.1; Aspartate Amino Transferase 92 U/L (15-37); Blood Urea Nitrogen 18.0 mg/dL (7.0-18.0); Calcium 9.5 mg/dL (8.5-10.1); Carbon Dioxide 29.6 mmol/L (21.0-32.0); Chloride 100 mmol/L (98-107); Estimated GFR (African America >60 (>=60 mL/min/1.73m^2); Estimated GFR (Non-African Ame 59 (>=60 mL/min/1.73m^2); Globulin 5.1 g/dL; Glucose 114 mg/dL (74-106); Magnesium 1.7 mg/dL (1.8-2.4); Potassium 3.7 mmol/L (3.5-5.1); Sodium 140 mmol/L (136-145); Total Protein 7.4 g/dL (6.4-8.2)
[2025-06-08] MEDS: DILTIAZEM HCL 25 MG/5 ML VIAL 10 MG IV (18:07)
[2025-06-08 18:11] LABS: NT Pro B Type Natriuretic Pept 2804.0 pg/mL (<=900.0)
--- NOTE | 2025-06-08 18:54 | ED.SOB1 ---
HPI - SOB/Dyspnea General Chief Complaint: Shortness of Breath/Dyspnea Stated Complaint: SOB Time Seen by Provider: 06/08/25 17:24 Source: patient Mode of arrival: ambulance History of Present Illness HPI Narrative: The patient is presented to us from [facility] with a diagnosis of PE almost 3 days ago, as per the caring staff the patient has been off his diltiazem for a while when he was in the [facility] and he was recently diagnosed with a PE , the patient is coming to us with a chest pain whenever he take a deep breath and also a feeling of shortness of breath, the patient also was found to be in A-fib RVR by the EMS on arrival There was no other complaint Related Data Home Medications ?Medication ?Instructions ?Recorded ?Confirmed albuterol sulfate 90 mcg/actuation 2 inh inhalation Q4H PRN shortness 01/05/24 02/23/25 aerosol inhaler of breath or wheezing aspirin 81 mg tablet,delayed 81 mg PO DAILY 01/05/24 02/23/25 release budesonide-formoterol HFA 160 2 puff inhalation BID 01/05/24 02/23/25 mcg-4.5 mcg/actuation aerosol inhaler diltiazem HCl 180 mg 180 mg PO DAILY 01/05/24 02/23/25 capsule,extended release 24 hr, controlled pantoprazole 40 mg tablet,delayed 40 mg PO DAILY 01/05/24 02/23/25 release roflumilast 500 mcg tablet 500 mcg PO DAILY 01/05/24 02/23/25 ibuprofen 800 mg tablet 800 mg PO Q8H PRN pain 01/13/25 02/23/25 cyclosporine 0.05 % eye drops in a 1 drp ophthalmic (eye) BID 01/14/25 02/23/25 dropperette metoclopramide HCl 10 mg tablet 10 mg PO Q8H PRN nausea and 02/23/25 02/23/25 vomiting Previous Rx's ?Medication ?Instructions ?Recorded albuterol sulfate 2.5 mg/3 mL 2.5 mg (3 mL) inhalation Q6H PRN 01/18/25 (0.083 %) solution for nebulization shortness of breath or wheezing #90 mL cefdinir 300 mg capsule 300 mg PO BID 10 days #20 caps 02/28/25 levofloxacin 750 mg tablet 750 mg PO DAILY 7 days #7 tabs 02/28/25 prednisone 50 mg tablet 50 mg PO DAILY 5 days #5 tabs 02/28/25 Allergies Allergy/AdvReac Type Severity Reaction Status Date / Time No Known Drug Allergies Allergy Verified 02/23/25 11:12 Review of Systems ROS Status of ROS 10 or more systems reviewed and unremarkable except as noted in history and below [facility] Medical History (Updated 06/08/25 @ 18:45 by Sherri Hoffmann MD) Closed fracture of neck of right femur with routine healing ?S72.001D - Fracture of unspecified part of neck of right femur, subsequent encounter for closed fracture with routine healing (ICD-10) HTN (hypertension) ?I10 - Essential (primary) hypertension (ICD-10) Paroxysmal atrial fibrillation ?I48.0 - Paroxysmal atrial fibrillation (ICD-10) Declining functional status ?R53.81 - Other malaise (ICD-10) Nausea ?R11.0 - Nausea (ICD-10) Malnutrition ?E46 - Unspecified protein-calorie malnutrition (ICD-10) Anorexia ?R63.0 - Anorexia (ICD-10) Right upper lobe pneumonia ?J18.9 - Pneumonia, unspecified organism (ICD-10) Chronic hypoxic respiratory failure ?J96.11 - Chronic respiratory failure with hypoxia (ICD-10) COPD (chronic obstructive pulmonary disease) ?J44.9 - Chronic obstructive pulmonary disease, unspecified (ICD-10) Closed fracture of proximal end of femur ?S72.009A - Fracture of unspecified part of neck of unspecified femur, initial encounter for closed fracture (ICD-10) Influenza A ?J10.1 - Influenza due to other identified influenza virus with other respiratory manifestations (ICD-10) Fall from standing ?W19.XXXA - Unspecified fall, initial encounter (ICD-10) Upper respiratory infection ?J06.9 - Acute upper respiratory infection, unspecified (ICD-10) Community acquired pneumonia ?J18.9 - Pneumonia, unspecified organism (ICD-10) Thoracic back pain ?M54.6 - Pain in thoracic spine (ICD-10) Enteritis ?K52.9 - Noninfective gastroenteritis and colitis, unspecified (ICD-10) Surgical History (Updated 01/22/25 @ 00:00 by ) S/P bilateral hip replacements ?Z96.643 - Presence of artificial hip joint, bilateral (ICD-10) Family History (Updated 02/23/25 @ 16:12 by Shannen Guzman) Mother Family history of CHF (congestive heart failure) Father Family history of COPD (chronic obstructive pulmonary disease) Uncle Family history of cancer Son Family history of diabetes mellitus Social History (Updated 02/23/25 @ 16:14 by Shannen Guzman) Within the past year, how often did you have a drink containing alcohol: never Within the past year, how often did you have six or more drinks on one occasion: never Score interpretation: A score less than 4 is consistent with normal alcohol consumption. Smoking status: Former smoker Non-prescribed substance use: denies use Previous occupational history: retired/ disabled Highest level of school completed/degree received: 9th grade Are you now , , , , never or living with a partner: Little interest or pleasure in doing things: not at all Feeling down, depressed, or hopeless: not at all Exam Narrative Exam Narrative: Nurses notes and vital signs reviewed and patient is not hypoxic. General: Well-appearing and in no apparent distress. Skin: Warm, dry, no pallor noted. No rash. Head: Normocephalic, atraumatic. Neck: Supple, non-tender. Eye: Pupils are equal, round and EOMI. No scleral icterus. Ears, Nose, Mouth, and Throat: TM are clear, no nasal mucosal hypertrophy. Oral mucosa is moist, no posterior oropharynx erythema, uvula is mid-line Cardiovascular: A-fib rhythm irregularly irregular without murmur, gallop or rub. Respiratory: No accessory muscle use or respiratory distress. Lungs are clear to auscultation, no wheezing, rales or rhonchi Chest Wall: no tenderness Back: No midline thoracic or lumbar vertebral tenderness. No CVA tenderness Musculoskeletal: normal ROM, no calf or popliteal tenderness, no lower extremity edema/swelling GI: Abdomen is soft, non-distended. Normal bowel sounds. No masses appreciated. No tenderness to palpation. No rebound, guarding, or rigidity noted. Neurological: A&O x4. No cranial nerve dysfunction observed. No truncal ataxia. Moves all extremities. Sensation intact. Psychiatric: Cooperative and interactive. Normal mood and affect. Constitutional Vital Signs, click to edit/add: Last Vital Signs Temp 98.2 F 06/08/25 17:18 Pulse 136 H 06/08/25 18:30 Resp 18 06/08/25 18:30 BP 100/78 06/08/25 18:23 Pulse Ox 92 L 06/08/25 18:30 O2 Del Method Nasal Cannula 06/08/25 17:38 O2 Flow Rate 4 06/08/25 17:54 Course Vital Signs Vital signs: Vital Signs Temperature 98.2 F 06/08/25 17:18 Pulse Rate 186 H 06/08/25 17:18 Respiratory Rate 26 H 06/08/25 17:18 Blood Pressure 78/54 L 06/08/25 17:18 Pulse Oximetry 93 L 06/08/25 17:18 Oxygen Delivery Method Nasal Cannula 06/08/25 17:18 Oxygen Delivery Flow Rate 4 06/08/25 17:18 Temperature 98.2 F 06/08/25 17:18 Pulse Rate 136 H 06/08/25 18:30 Respiratory Rate 18 06/08/25 18:30 Blood Pressure 100/78 06/08/25 18:23 Pulse Oximetry 92 L 06/08/25 18:30 Oxygen Delivery Method Nasal Cannula 06/08/25 17:38 Oxygen Delivery Flow Rate 4 06/08/25 17:54 MDM - SOB/Dyspnea MDM Narrative Medical decision making narrative: Upon arrival the patient was found to be in A-fib RVR with heart rate of 180 his initial EKG was 186 Initially the patient was hypotensive at the 80s systolic and he was provided with the amiodarone after which his blood pressure was holding at 99 he was still in A-fib and he was started on Cardizem due to his history of using Cardizem before The patient chest x-ray shows a possible infiltrate in the right lung The patient chemistry showed no acute significant pathology except for the fact that his troponin is elevated as well as BNP up Elevation of the troponin could be secondary to the tachycardia Another EKG after the Cardizem was showing that the patient was in A-fib with a heart rate of [address] elevation or depression The patient case was discussed with Dr. Renteria regarding his elevated troponin and there was no concern right now with elevated troponin at this mostly secondary to the A-fib rhythm Right now we are trying to obtain more history regarding the patient's recent PE as he was diagnosed with 3 days ago although he still taking Eliquis 5 mg twice daily and he should be on 10 mg twice daily in case it is recent diagnosis of PE Lab Data Labs: Lab Results 06/08/25 Range/Units 17:30 WBC 9.7 (4.0-11.0) 10^3/uL RBC 4.61 L (4.70-6.10) 10^6/uL Hgb 12.5 L (14.0-18.0) g/dL Hct 38.4 L (42.0-54.0) % MCV 83.3 (80.0-94.0) fL MCH 27.1 (25.9-34.0) pg MCHC 32.6 (29.9-35.2) g/dL RDW 15.1 H (11.0-15.0) % Plt Count 299 (150-450) 10^3/uL MPV 9.2 L (9.5-13.5) fL Neut % (Auto) 74.6 (43.0-75.0) % Lymph % (Auto) 17.9 L (20.5-60.0) % [place] % (Auto) 6.4 (1.7-12.0) % Eos % (Auto) 0.5 L (0.9-7.0) % Baso % (Auto) 0.2 (0.2-2.0) % Neut # (Auto) 7.3 H (1.4-6.5) 10^3/uL Lymph # (Auto) 1.7 (1.2-3.8) 10^3/uL [place] # (Auto) 0.6 (0.3-0.8) 10^3/uL Eos # (Auto) 0.1 (0.0-0.7) 10^3/uL Baso # (Auto) 0.0 (0.0-0.1) 10^3/uL Abs Immat Gran (auto) 0.04 H (0.00-0.03) 10^3/uL Imm/Tot Granulo (auto) 0.4 (0.0-0.5) % PT 12.7 H (9.0-11.6) sec INR 1.22 Sodium 140 (136-145) mmol/L Potassium 3.7 (3.5-5.1) mmol/L Chloride 100 (98-107) mmol/L Carbon Dioxide 29.6 (21.0-32.0) mmol/L Anion Gap 14.1 BUN 18.0 (7.0-18.0) mg/dL Creatinine 1.23 (0.70-1.30) mg/dL Est GFR ( Amer) >60 (>=60 mL/min/1.73m^2) Est GFR (Non-Af Amer) 59 L (>=60 mL/min/1.73m^2) BUN/Creatinine Ratio 14.6 Glucose 114 H (74-106) mg/dL Calcium 9.5 (8.5-10.1) mg/dL Magnesium 1.7 L (1.8-2.4) mg/dL Total Bilirubin 0.5 (0.2-1.0) mg/dL AST 92 H (15-37) U/L ALT 91 H (16-63) U/L Alkaline Phosphatase 95 (46-116) U/L Troponin I High Sens 248.8 H* (4.0-76.1) pg/mL NT-Pro-B Natriuret Pep 2804.0 H* (<=900.0) pg/mL Total Protein 7.4 (6.4-8.2) g/dL Albumin 2.3 L (3.4-5.0) g/dL Globulin 5.1 g/dL Albumin/Globulin Ratio 0.5 Discharge Plan Discharge Chief Complaint: Shortness of Breath/Dyspnea Clinical Impression: Atrial fibrillation with rapid ventricular response Prescriptions / Home Meds: No Action albuterol sulfate 90 mcg/actuation HFA aerosol inhaler 2 inh INHALATION Q4H PRN (Reason: shortness of breath or wheezing) aspirin 81 mg tablet,delayed release (DR/EC) 81 mg PO DAILY budesonide-formoterol 160-4.5 mcg/actuation HFA aerosol inhaler 2 puff INHALATION BID diltiazem HCl 180 mg capsule,ext.rel 24h degradable 180 mg PO DAILY pantoprazole 40 mg tablet,delayed release (DR/EC) 40 mg PO DAILY roflumilast 500 mcg tablet 500 mcg PO DAILY ibuprofen 800 mg tablet 800 mg PO Q8H PRN (Reason: pain) cyclosporine 0.05 % dropperette 1 drp OPHTHALMIC (EYE) BID albuterol sulfate 2.5 mg /3 mL (0.083 %) solution for nebulization 2.5 mg inhalation Q6H PRN (Reason: shortness of breath or wheezing) Qty: 90 0RF metoclopramide HCl 10 mg tablet 10 mg PO Q8H PRN (Reason: nausea and vomiting) prednisone 50 mg tablet 50 mg PO DAILY 5 Days Qty: 5 0RF levofloxacin 750 mg tablet 750 mg PO DAILY 7 Days Qty: 7 0RF cefdinir 300 mg capsule 300 mg PO BID 10 Days Qty: 20 0RF Print Language: Burmese Referrals: Kathie Sánchez NP [Primary Care Provider, Family Practice] - 1 week
--- NOTE | 2025-06-08 21:23 | ECG_ITS ---
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: : 1960 Requested By: [id number] Order Number: [id number] Reading MD: IVAN HERNÁNDEZ Measurements Intervals [place] Rate: 186 P: -22951 ID: [id number] QRS: 81 QRSD: 118 T: -78 QT: 316 QTc: 412 Interpretive Statements Wide-complex tachycardia, likely SVT with aberrancy 2540 Incomplete left bundle branch block [address] depression, consistent with subendocardial injury 57926 ST elevation, consistent with subepicardial injury, pericarditis, or early repolarization 9150 abnormal ECG Compared to ECG 11/28/2024 15:26:32 Left bundle-branch block now present ST (T wave) deviation now present Sinus rhythm no longer present Electronically Signed On 06-11-2025 16:22:59 EDT by IVAN HERNÁNDEZ
--- NOTE | 2025-06-08 21:23 | ECG_ITS ---
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: : 1960 Requested By: [id number] Order Number: [id number] Reading MD: IVAN HERNÁNDEZ Measurements Intervals [place] Rate: 136 P: -39631 NV: -63354 QRS: 59 QRSD: 74 T: 37 QT: 288 QTc: 368 Interpretive Statements 57355 Atrial fibrillation with rapid ventricular response with aberrant conduction, or ventricular premature complexes 34416 Nonspecific Twave abnormality, probably digitalis effect 9140 abnormal rhythm ECG Compared to ECG 06/08/2025 17:32:18 Ventricular premature complex(es) now present Left bundle-branch block no longer present ST (T wave) deviation no longer present Electronically Signed On 06-11-2025 16:23:57 EDT by IVAN HERNÁNDEZ
--- NOTE | 2025-06-08 21:52 | ECG_ITS ---
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
--- NOTE | 2025-06-08 21:52 | ECG_ITS ---
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
[2025-06-09] VITALS (63 sets, daily range): BP systolic 64–130; BP diastolic 37–67; PULSE 71–102; TEMP 36.7–36.8; O2SAT 85–98
[2025-06-09] MEDS: MAGNESIUM SULFATE IN WATER 2 GM/50 ML PREMIX IV (02:29)
[2025-06-09] MEDS: PIPERACILLIN SODIUM/TAZOBACTAM 3.375 GM in 0.9 % SODIUM CHLORIDE 50 ML IV ×3 (02:40→21:15)
[2025-06-09 02:51] LABS: Lactate/Lactic Acid 1.2 mmol/L (0.4-2.0)
[2025-06-09] MEDS: AZITHROMYCIN 500 MG in 0.9 % SODIUM CHLORIDE 250 ML 250 MG IV (03:13)
--- OUTSIDE RECORDS SUMMARY | 2025-06-09 04:37 | XMS_ITS | CCD ---
Author Organization [facility] Care Team Providers Care Fine Hairer Name Role Phone Bryan Quick Attending Provider KATHIE SÁNCHEZ Primary Care Physician [phone] AICHHOLZ, SECONDS HANDLER KATHIE Primary Care Unavailable DR LEONOR MA Consulting Unavailable SAMSA ., ROBERTO Admitting Unavailable SAMSA ., ROBERTO Attending Unavailable SAMSA ., ROBERTO Consulting Unavailable AICHHOLZ, SECONDS HANDLER KATHIE Admitting Unavailable AICHHOLZ, SECONDS HANDLER KATHIE Attending Unavailable AICHHOLZ, SECONDS HANDLER KATHIE Consulting Unavailable AICHHOLZ, SECONDS HANDLER KATHIE Primary Care Unavailable AICHHOLZ, SECONDS HANDLER KATHIE Admitting Unavailable AICHHOLZ, SECONDS HANDLER KATHIE Primary Care Unavailable AICHHOLZ, SECONDS HANDLER KATHIE Attending Unavailable AICHHOLZ, SECONDS HANDLER KATHIE Consulting Unavailable AICHHOLZ, SECONDS HANDLER KATHIE Primary Care Unavailable DR LEONOR MA Consulting Unavailable SAMSA ., ROBERTO Admitting Unavailable SAMSA ., ROBERTO Attending Unavailable SAMSA ., ROBERTO Consulting Unavailable DR LEONOR MA Consulting Unavailable SAMSA ., ROBERTO Admitting Unavailable SAMSA ., ROBERTO Attending Unavailable SAMSA ., ROBERTO Consulting Unavailable DR ELSA NOBLE Admitting Unavailable DR OK CISNEROS V Consulting Unavailable AICHHOLZ, SECONDS HANDLER KATHIE Primary Care Unavailable DR ELSA NOBLE Attending Unavailable DR ELSA NOBLE Consulting Unavailable SAMSA ., ROBERTO Admitting Unavailable AICHHOLZ, SECONDS HANDLER KATHIE Primary Care Unavailable SAMSA ., ROBERTO Attending Unavailable SAMSA ., ROBERTO Consulting Unavailable SAMSA ., ROBERTO Admitting Unavailable AICHHOLZ, SECONDS HANDLER KATHIE Primary Care Unavailable DR LEONOR MA Consulting Unavailable SAMSA ., ROBERTO Attending Unavailable SAMSA ., ROBERTO Consulting Unavailable Aichholz EQUINE VET, Kathie Unavailable Lanre CHANDLER, Curt Primary Care Provider Rufina VORA Attending Unavailable Rufina VORA Attending Unavailable Rufina VORA Attending Unavailable Rufina VORA Attending Unavailable Rufina VORA Admitting Unavailable Rufina VORA Referring Unavailable Rufina VORA Attending Unavailable Bhat DO, Peter Cruz Primary Care Provider Aichholz SECONDS HANDLER, Kathie Rosen Primary Care Provider [phone] Bhat DOPeter Primary Care Provider Aichholz EQUINE VET, Kathie Unavailable Aichholz EQUINE VET, Kathie Unavailable Curt Lowry MD Primary Care Provider Aichholz EQUINE VET, Kathie Unavailable Umu Schultz Unavailable Unavailable ENGELER, [...] Unavailable Lissa Garza MA Unavailable Unavailable Keerthi DUQUE Andrade R Unavailable KAREN VALDOVINOS Attending Unavailable PRINCESS KATHIE Attending Unavailable JOVANIHOLMatias, KATHIE Attending Unavailable JOVANIHOLMatias, KATHIE Attending Unavailable Rufina VORA Attending Unavailable Rufina VORA Attending Unavailable Diana Bush MD Primary Care Provider ROSS, DIANA E Referring Unavailable ROSS, DIANA [...] Unavailable Curt Lowry MD Primary Care Provider LEANDRA, MOHAMED F Attending Unavailable ROSS, DIANA [...] Medication Allergies] Propensity to adverse reactions (disorder) [facility] Repository Medications Current Medications Medication Drug Class(es) [...] 08/05/22 Status: Ordered take 1 capsule by [facility] three times daily as needed for [...] 05/17/22 Status: Ordered take 1 capsule by [facility] every twenty-four hours in the [...] before meals. 90 tablet 1 10/16/2024 Active Wdtzkgrvlys-Etabwegd-Kswbxhl ac 1-0.5-0.075 % solution (11 sources) Start: 01-02-2025 Syqukbfqcla-Uqihsjna-Gihcjzn ac 1-0.5-0.075 % solution Indications: Age-related nuclear [...] mL, Rectal, Once, 133 mL, Refill(s) 0, [facility]/pharmacy #[id number], 175, cm, 01/02/24 12:45:00 [...] mouth every four hours for pain HYDROcodone-acetaminophen (Haynes) 5-325 MG tablet Indications: Other chronic pain Take 1 tablet by mouth every 4 (four) hours if needed for severe pain 180 tablet 04/11/2025 05/11/2025 Active Start: 12-05-2024 HYDROcodone-ac etaminophen (Haynes) 5-325 MG tablet 12/05/2024 Active albuterol 0.83 [...] Discontinued (Therapy completed) take 1 tablet by domniique th once in the morning calcium carbonate-vitamin [...] capsule by mouth once daily iron ps xrcenda-H55-kbqer acid (NIFEREX FORTE) 150-25-1 mg-mcg-mg capsule Take [...] disease (2 sources) Atherosclerotic heart disease of [place] coronary artery without angina pectoris; Translations: [Atherosclerotic heart disease of [place] coronary artery without angina pectoris] Onset: 04-05-2025 [...] (1 source) tevar 04-09-25 testing done in [place] CT angiogram chest 6/ Onset: 05-30-2025 Unclassified [...] 02-22-2025 Episodic Other aftercare (1 source) Other long chain beamer (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 therapy; Translations: [OTH FDC CURRENT [...] DX 0.8 ng/mL NINF - 4.00 ng/mL [facility] CTA ABD AND PELVISon CT CTA [...] Rudy Paige MD on 05/29/2025 9:30 AM [facility] CT CTA CHESTon 05-29-2025 CT CTA CHEST [...] MD on 05/29/2025 9:30 AM Normal [facility] 37on 05-08-2025 37 1. Stop aspirin. 2. [...] Follow-up in cardiology in 6 months. Normal [facility] Follow-Upon 05-08-2025 Follow-Up [id number] Mateo Stearns Schuyler 1960 M Date Provider Department Center 05/08/2025 RENE [facility] Family History Problem Relation Age of Onset Emphysema Father Accidental Sister Family Status - Relation Status Age at Mother Father Sister Level of Service:97184 NC OFFICE/OUTPATIENT ESTABLISHED MOD MDM 30 MIN [facility] Orders Onlyon 05-08-2025 Orders Only [id number] Mateo Stearns 1960 M Date Provider Department [place] 05/08/2025 [id number], HISTORICAL [facility] Family History Problem Relation Age of Onset Emphysema Father Accidental Sister Family Status - Relation Status Age at Mother Father Sister Normal [facility] BASIC METABOLIC PANELon 06-0 Anion gap [Moles/Vol] 8 mmol/L Normal 5-15 [facility] Comment on above: Performed By: #### B MP #### [facility] ([facility]) [address] [place] [address] VIR Calcium [Mass/Vol] 8.9 mg/dL Normal 8.5-10.5 [facility] Comment on above: Performed By: #### B MP #### [facility] ([facility]) [address] [place] [address] VIR Chloride [Moles/Vol] 101 mmol/L Normal 98-109 [facility] Comment on above: Performed By: #### B MP #### [facility] ([facility]) [address] [place] [address] VIR CO2 [Moles/Vol] 29 mmol/L Normal 22-32 [facility] Comment on above: Performed By: #### B MP #### [facility] ([facility]) [address] [place] [address] VIR Creatinine [Mass/Vol] 0.66 mg/dL Normal 0.60-1.30 [facility] Comment on above: Result Comment: METH OD TRACEABLE TO IDMS STANDARD Performed By: #### B MP #### [facility] ([facility]) [address] [place] [address] VIR EGFR (CKD-EPI) NON-RACE DEPENDENT >^90 Normal >=60 [facility] Comment on above: Result Comment: Repo rted eGFR is based on the CKD-EPI 2020 equation that does not use a race coefficient. Performed By: #### B MP #### [facility] ([facility]) [address] [place] [address] VIR Glucose [Mass/Vol] 145 mg/dL High 65-99 [facility] Comment on above: Performed By: #### B MP #### [facility] ([facility]) [address] [place] [address] VIR Potassium [Moles/Vol] 4.1 mmol/L Normal 3.5-5.0 [facility] Comment on above: Performed By: #### B MP #### [facility] ([facility]) [address] [place] [address] VIR Sodium [Moles/Vol] 138 mmol/L Normal 134-146 [facility] Comment on above: Performed By: #### B MP #### [facility] ([facility]) [address] [place] [address] VIR Urea nitrogen [Mass/Vol] 22 mg/dL Normal 5-27 [facility] Comment on above: Performed By: #### B MP #### [facility] ([facility]) [address] [place] [address] VIR Basic Metabolic Panelon 06-0 Anion gap [Moles/Vol] 8 mmol/L 5 - 15 mmol/L [facility] Calcium [Mass/Vol] 8.9 mg/dL 8.5 - 10. 5 mg/dL [facility] Chloride [Moles/Vol] 101 mmol/L 98 - 109 mmol/L [facility] CO2 [Moles/Vol] 29 mmol/L 22 - 32 mmol/L [facility] Creatinine [Mass/Vol] 0.66 mg/dL 0.60 - 1.30 mg/dL [facility] Comment on above: METHOD TRACEABLE TO IDMS STANDARD EGFR Non-Race Dependent - PINF [facility] Comment on above: Reported eGFR is bas ed on the CKD-EPI 2020 equation that does not use a race coefficient. Glucose [Mass/Vol] 145 mg/dL High 65 - 99 mg/dL [facility] Interpretation and review of laboratory results Abnormal [facility] Potassium [Moles/Vol] 4.1 mmol/L 3.5 - 5.0 mmol/L [facility] Sodium [Moles/Vol] 138 mmol/L 134 - 146 mmol/L [facility] Urea nitrogen [Mass/Vol] 22 mg/dL 5 - 27 mg/dL [facility] CBC WITH AUTO DIFFERENTIALon 05-01-2025 BASOPHILS ABSOLUTE COUNT (10*3/UL) BY AUTOMATED COUNT 0.0 10*3/uL Normal 0.0-0.2 [facility] Comment on above: Performed By: #### C BCA #### [facility] ([facility]) [address] [place] [address] VIR BASOPHILS RELATIVE PERCENT BY AUTOMATED COUNT 0.3 % Normal [facility] Comment on above: Performed By: #### C BCA #### [facility] ([facility]) [address] [place] [address] VIR CELLAVISION DIFFERENTIAL TYPE AUTOMATED DIFFERENTIAL Normal [facility] Comment on above: Performed By: #### C BCA #### [facility] ([facility]) [address] [place] [address] VIR Eosinophils (Bld) [#/Vol] 0.0 10*3/uL Normal 0.0-0.4 [facility] Comment on above: Performed By: #### C BCA #### [facility] ([facility]) [address] [place] [address] VIR EOSINOPHILS RELATIVE PERCENT BY AUTOMATED COUNT 0.0 % Normal [facility] Comment on above: Performed By: #### C BCA #### [facility] ([facility]) [address] [place] [address] VIR Erythrocyte distribution width (RBC) [Ratio] 15.9 % High 11.5-15 [facility] Comment on above: Performed By: #### C BCA #### [facility] ([facility]) [address] [place] [address] VIR Hematocrit (Bld) [Volume fraction] 31.5 % Low 39-50 [facility] Comment on above: Performed By: #### C BCA #### [facility] ([facility]) [address] [place] [address] VIR Hemoglobin (Bld) [Mass/Vol] 10.7 g/dL Low 13-17 [facility] Comment on above: Performed By: #### C BCA #### [facility] ([facility]) [address] [place] [address] VIR LYMPHOCYTES ABSOLUTE COUNT (10*3/UL) BY AUTOMATED COUNT 1.2 10*3/uL Normal 1.0-3.5 [facility] Comment on above: Performed By: #### C BCA #### [facility] ([facility]) [address] [place] [address] VIR LYMPHOCYTES RELATIVE PERCENT BY AUTOMATED COUNT 15.3 % Normal [facility] Comment on above: Performed By: #### C BCA #### [facility] ([facility]) [address] [place] [address] VIR MCH (RBC) [Entitic mass] 28.2 pg Normal 27-34 [facility] Comment on above: Performed By: #### C BCA #### [facility] ([facility]) [address] [place] [address] VIR MCHC (RBC) [Mass/Vol] 34.0 g/dL Normal 32-36 [facility] Comment on above: Performed By: #### C BCA #### [facility] ([facility]) [address] [place] [address] VIR MCV (RBC) [Entitic vol] 83 fL Normal 80-100 [facility] Comment on above: Performed By: #### C BCA #### [facility] ([facility]) [address] [place] [address] VIR MONOCYTES ABSOLUTE COUNT (10*3/UL) BY AUTOMATED COUNT 0.6 10*3/uL Normal 0.0-0.9 [facility] Comment on above: Performed By: #### C BCA #### [facility] ([facility]) [address] [place] [address] VIR MONOCYTES RELATIVE PERCENT BY AUTOMATED COUNT 7.2 % Normal [facility] Comment on above: Performed By: #### C BCA #### [facility] ([facility]) [address] [place] [address] VIR NEUTROPHILS ABSOLUTE COUNT BY AUTOMATED COUNT 6.3 10*3/uL Normal 1.5-6.6 [facility] Comment on above: Performed By: #### C BCA #### [facility] ([facility]) [address] [place] [address] VIR NEUTROPHILS RELATIVE PERCENT BY AUTOMATED COUNT 77.2 % Normal [facility] Comment on above: Performed By: #### C BCA #### [facility] ([facility]) [address] [place] [address] VIR Platelet mean volume (Bld) [Entitic vol] 7.4 fL Normal 7-12 [facility] Comment on above: Performed By: #### C BCA #### [facility] ([facility]) [address] [place] [address] VIR Platelets (Bld) [#/Vol] 218 10*3/uL Normal 150-450 [facility] Comment on above: Performed By: #### C BCA #### [facility] ([facility]) [address] [place] [address] VIR RBC COUNT 3.80 X10E12/L Low 4.1-5.7 [facility] Comment on above: Performed By: #### C BCA #### [facility] ([facility]) [address] [place] [address] VIR WBC (Bld) [#/Vol] 8.1 10*3/uL Normal 4-11 [facility] Comment on above: Performed By: #### C BCA #### [facility] ([facility]) [address] [place] [address] VIR CBC auto differentialon -0 Basophils (Bld) [#/Vol] 0 10*3/uL 0.0 - 0.2 10*3/uL [facility] Basophils/100 WBC (Bld) 0.3 % [facility] Differential cell count method Nom (Bld) AUTOMATED DIFFERENTIAL [facility] Eosinophils (Bld) [#/Vol] 0 10*3/uL 0.0 - 0.4 10*3/uL [facility] Eosinophils/100 WBC (Bld) 0 % [facility] Erythrocyte distribution width (RBC) [Ratio] 15.9 % High 11.5 - 15 % [facility] Hematocrit (Bld) [Volume fraction] 31.5 % Low 39 - 50 % [facility] Hemoglobin (Bld) [Mass/Vol] 10.7 g/dL Low 13 - 17 g/dL [facility] Interpretation and review of laboratory results Abnormal [facility] Lymphocytes (Bld) [#/Vol] 1.2 10*3/uL 1.0 - 3.5 10*3/uL [facility] Lymphocytes/100 WBC (Bld) 15.3 % [facility] MCH (RBC) [Entitic mass] 28.2 pg 27 - [address] [facility] MCHC (RBC) [Mass/Vol] 34 g/dL 32 - 36 g/dL [facility] MCV (RBC) [Entitic vol] 83 fL 80 - [address] [facility] Monocytes (Bld) [#/Vol] 0.6 10*3/uL 0.0 - 0.9 10*3/uL [facility] Monocytes/100 WBC (Bld) 7.2 % [facility] Neutrophils (Bld) [#/Vol] 6.3 10*3/uL 1.5 - 6.6 10*3/uL [facility] Neutrophils/100 WBC (Bld) 77.2 % [facility] Platelet mean volume (Bld) [Entitic vol] 7.4 fL 7 - [address] [facility] Platelets (Bld) [#/Vol] 218 10*3/uL [facility] RBC (Bld) [#/Vol] 3.8 10*6/uL Low [facility] WBC LM Ql (Sput) 8.1 [facility] ABO Rh Repeaton 04-30-2025 ABO O [facility] Rh Nom (Bld) Positive [facility] ABO O [facility] Rh Nom (Bld) Positive [facility] BASIC METABOLIC PANELon Anion gap [Moles/Vol] 11 mmol/L Normal 5-15 [facility] Comment on above: Performed By: #### B MP #### [facility] ([facility]) [address] [place] [address] VIR Calcium [Mass/Vol] 9.3 mg/dL Normal 8.5-10.5 [facility] Comment on above: Performed By: #### B MP #### [facility] ([facility]) [address] [place] [address] VIR Chloride [Moles/Vol] 102 mmol/L Normal 98-109 [facility] Comment on above: Performed By: #### B MP #### [facility] ([facility]) [address] [place] [address] VIR CO2 [Moles/Vol] 25 mmol/L Normal 22-32 [facility] Comment on above: Performed By: #### B MP #### [facility] ([facility]) [address] [place] [address] VIR Creatinine [Mass/Vol] 0.62 mg/dL Normal 0.60-1.30 [facility] Comment on above: Result Comment: METH OD TRACEABLE TO IDMS STANDARD Performed By: #### B MP #### [facility] ([facility]) [address] [place] [address] VIR EGFR (CKD-EPI) NON-RACE DEPENDENT >^90 Normal >=60 [facility] Comment on above: Result Comment: Repo rted eGFR is based on the CKD-EPI 2020 equation that does not use a race coefficient. Performed By: #### B MP #### [facility] ([facility]) [address] [place] [address] VIR Glucose [Mass/Vol] 119 mg/dL High 65-99 [facility] Comment on above: Performed By: #### B MP #### [facility] ([facility]) [address] [facility] [address] [place] [address] VIR Potassium [Moles/Vol] 4.2 mmol/L Normal 3.5-5.0 [facility] Comment on above: Performed By: #### B MP #### [facility] ([facility]) [address] [place] [address] VIR Sodium [Moles/Vol] 138 mmol/L Normal 134-146 [facility] Comment on above: Performed By: #### B MP #### [facility] ([facility]) [address] [place] [address] VIR Urea nitrogen [Mass/Vol] 16 mg/dL Normal 5-27 [facility] Comment on above: Performed By: #### B MP #### [facility] ([facility]) [address] [place] [address] VIR Basic Metabolic Panelon Anion gap [Moles/Vol] 11 mmol/L 5 - 15 mmol/L [facility] Calcium [Mass/Vol] 9.3 mg/dL 8.5 - 10. 5 mg/dL [facility] Chloride [Moles/Vol] 102 mmol/L 98 - 109 mmol/L [facility] CO2 [Moles/Vol] 25 mmol/L 22 - 32 mmol/L [facility] Creatinine [Mass/Vol] 0.62 mg/dL 0.60 - 1.30 mg/dL [facility] Comment on above: METHOD TRACEABLE TO IDUT STANDARD EGFR Non-Race Dependent - PINF [facility] Comment on above: Reported eGFR is bas ed on the CKD-EPI 2020 equation that does not use a race coefficient. Glucose [Mass/Vol] 119 mg/dL High 65 - 99 mg/dL [facility] Interpretation and review of laboratory results Abnormal [facility] Potassium [Moles/Vol] 4.2 mmol/L 3.5 - 5.0 mmol/L [facility] Sodium [Moles/Vol] 138 mmol/L 134 - 146 mmol/L [facility] Urea nitrogen [Mass/Vol] 16 mg/dL 5 - 27 mg/dL [facility] CBC WITH AUTO DIFFERENTIALon 04-30-2025 BASOPHILS ABSOLUTE COUNT (10*3/UL) BY AUTOMATED COUNT 0.0 10*3/uL Normal 0.0-0.2 [facility] Comment on above: Performed By: #### C BCA #### [facility] ([facility]) [address] [place] [address] VIR BASOPHILS RELATIVE PERCENT BY AUTOMATED COUNT 0.4 % Normal [facility] Comment on above: Performed By: #### C BCA #### [facility] ([facility]) [address] [place] [address] VIR CELLAVISION DIFFERENTIAL TYPE AUTOMATED DIFFERENTIAL Normal [facility] Comment on above: Performed By: #### C BCA #### [facility] ([facility]) [address] [place] [address] VIR Eosinophils (Bld) [#/Vol] 0.0 10*3/uL Normal 0.0-0.4 [facility] Comment on above: Performed By: #### C BCA #### [facility] ([facility]) [address] [place] [address] VIR EOSINOPHILS RELATIVE PERCENT BY AUTOMATED COUNT 0.4 % Normal [facility] Comment on above: Performed By: #### C BCA #### [facility] ([facility]) [address] [place] [address] VIR Erythrocyte distribution width (RBC) [Ratio] 16.0 % High 11.5-15 [facility] Comment on above: Performed By: #### C BCA #### [facility] ([facility]) [address] [place] [address] VIR Hematocrit (Bld) [Volume fraction] 35.1 % Low 39-50 [facility] Comment on above: Performed By: #### C BCA #### [facility] ([facility]) [address] [place] [address] VIR Hemoglobin (Bld) [Mass/Vol] 11.7 g/dL Low 13-17 [facility] Comment on above: Performed By: #### C BCA #### [facility] ([facility]) [address] [place] [address] VIR LYMPHOCYTES ABSOLUTE COUNT (10*3/UL) BY AUTOMATED COUNT 0.5 10*3/uL Low 1.0-3.5 [facility] Comment on above: Performed By: #### C BCA #### [facility] ([facility]) [address] [place] [address] VIR LYMPHOCYTES RELATIVE PERCENT BY AUTOMATED COUNT 6.8 % Normal [facility] Comment on above: Performed By: #### C BCA #### [facility] ([facility]) [address] [place] [address] VIR MCH (RBC) [Entitic mass] 27.7 pg Normal 27-34 [facility] Comment on above: Performed By: #### C BCA #### [facility] ([facility]) [address] [place] [address] VIR MCHC (RBC) [Mass/Vol] 33.5 g/dL Normal 32-36 [facility] Comment on above: Performed By: #### C BCA #### [facility] ([facility]) [address] [place] [address] VIR MCV (RBC) [Entitic vol] 83 fL Normal 80-100 [facility] Comment on above: Performed By: #### C BCA #### [facility] ([facility]) [address] [place] [address] VIR MONOCYTES ABSOLUTE COUNT (10*3/UL) BY AUTOMATED COUNT 0.2 10*3/uL Normal 0.0-0.9 [facility] Comment on above: Performed By: #### C BCA #### [facility] ([facility]) [address] [place] [address] VIR MONOCYTES RELATIVE PERCENT BY AUTOMATED COUNT 2.5 % Normal [facility] Comment on above: Performed By: #### C BCA #### [facility] ([facility]) [address] [place] [address] VIR NEUTROPHILS ABSOLUTE COUNT BY AUTOMATED COUNT 6.8 10*3/uL High 1.5-6.6 [facility] Comment on above: Performed By: #### C BCA #### [facility] ([facility]) [address] [place] [address] VIR NEUTROPHILS RELATIVE PERCENT BY AUTOMATED COUNT 89.9 % Normal [facility] Comment on above: Performed By: #### C BCA #### [facility] ([facility]) [address] [place] [address] VIR Platelet mean volume (Bld) [Entitic vol] 7.3 fL Normal 7-12 [facility] Comment on above: Performed By: #### C BCA #### [facility] ([facility]) [address] [place] [address] VIR Platelets (Bld) [#/Vol] 215 10*3/uL Normal 150-450 [facility] Comment on above: Performed By: #### C BCA #### [facility] ([facility]) [address] [place] [address] VIR RBC COUNT 4.24 [id number]/L Normal 4.1-5.7 [facility] Comment on above: Performed By: #### C BCA #### [facility] ([facility]) [address] [place] [address] VIR WBC (Bld) [#/Vol] 7.5 10*3/uL Normal 4-11 [facility] Comment on above: Performed By: #### C BCA #### [facility] ([facility]) [address] [place] [address] VIR CBC auto differentialon 06-0 -2024 Basophils (Bld) [#/Vol] 0 10*3/uL 0.0 - 0.2 10*3/uL [facility] Basophils/100 WBC (Bld) 0.4 % [facility] Differential cell count method Nom (Bld) AUTOMATED DIFFERENTIAL [facility] Eosinophils (Bld) [#/Vol] 0 10*3/uL 0.0 - 0.4 10*3/uL [facility] Eosinophils/100 WBC (Bld) 0.4 % [facility] Erythrocyte distribution width (RBC) [Ratio] 16 % High 11.5 - 15 % [facility] Hematocrit (Bld) [Volume fraction] 35.1 % Low 39 - 50 % [facility] Hemoglobin (Bld) [Mass/Vol] 11.7 g/dL Low 13 - 17 g/dL [facility] Interpretation and review of laboratory results Abnormal [facility] Lymphocytes (Bld) [#/Vol] 0.5 10*3/uL Low 1.0 - 3.5 10*3/uL [facility] Lymphocytes/100 WBC (Bld) 6.8 % [facility] MCH (RBC) [Entitic mass] 27.7 pg 27 - [address] [facility] MCHC (RBC) [Mass/Vol] 33.5 g/dL 32 - 36 g/dL [facility] MCV (RBC) [Entitic vol] 83 fL 80 - 100 fL [facility] Monocytes (Bld) [#/Vol] 0.2 10*3/uL 0.0 - 0.9 10*3/uL [facility] Monocytes/100 WBC (Bld) 2.5 % [facility] Neutrophils (Bld) [#/Vol] 6.8 10*3/uL High 1.5 - 6.6 10*3/uL [facility] Neutrophils/100 WBC (Bld) 89.9 % [facility] Platelet mean volume (Bld) [Entitic vol] 7.3 fL 7 - [address] [facility] Platelets (Bld) [#/Vol] 215 10*3/uL [facility] RBC (Bld) [#/Vol] 4.24 10*6/uL [facility] WBC LM Ql (Sput) 7.5 [facility] IONIZED MAGNESIUMon 04-30-20 25 Magnesium [Moles/Vol] 0.33 mmol/L Low 0.45-0.74 [facility] Comment on above: Performed By: #### I MAG #### [facility] ([facility]) [address] [place] [address] VIR Ionized magnesiumon 04-30-20 25 Interpretation and review of laboratory results Abnormal [facility] Magnesium Ionized ISE (Bld) [Moles/Vol] 0.33 mmol/L Low 0.45 - 0.74 mmol/L [facility] POCT ABG RAPID K GLU ICA HHo n 04-30-2025 BASE,EXCESS 3.0 mmol/L High 0.0-2.0 [facility] Comment on above: Performed By: #### A [id number] #### [facility] ([facility]) [address] [place] [address] VIR Body temperature 98.6 [degF] Normal >=37 [facility] Comment on above: Performed By: #### A [id number] #### [facility] ([facility]) [address] [place] [address] VIR Glucose [Mass/Vol] 121 mg/dL High 65-99 [facility] Comment on above: Performed By: #### A [id number] #### [facility] ([facility]) [address] [place] [address] VIR HCO3 (Bld) [Moles/Vol] 26.9 mmol/L High 22.0-26.0 [facility] Comment on above: Performed By: #### A [id number] #### [facility] ([facility]) [address] [place] [address] VIR Hematocrit (Bld) [Volume fraction] 35 % Low 39-49 [facility] Comment on above: Performed By: #### A [id number] #### [facility] ([facility]) [address] [place] [address] VIR Hemoglobin (Bld) [Mass/Vol] 11.4 g/dL Low 13.0-17.0 [facility] Comment on above: Performed By: #### A [id number] #### [facility] ([facility]) [address] [place] [address] VIR INSP. O2 CONC. 100.0 % Normal [facility] Comment on above: Performed By: #### A [id number] #### [facility] ([facility]) [address] [place] [address] VIR Oxygen saturation in Blood 100.3 % Normal >90.0 [facility] Comment on above: Performed By: #### A [id number] #### [facility] ([facility]) [address] [place] [address] VIR PCO2 ARTERIAL 38.1 mmHg Normal 35.0-45.0 [facility] Comment on above: Performed By: #### A [id number] #### [facility] ([facility]) [address] [place] [address] VIR PH ARTERIAL 7.457 High 7.350-7.450 [facility] Comment on above: Performed By: #### A [id number] #### [facility] ([facility]) [address] [place] [address] VIR PO2 ARTERIAL 254 mmHg High 80-100 [facility] Comment on above: Performed By: #### A [id number] #### [facility] ([facility]) [address] [place] [address] VIR POC ALLIE'S TEST Normal [facility] Comment on above: Performed By: #### A [id number] #### [facility] ([facility]) [address] [place] [address] VIR PORTABLE ICA 4.7 mg/dL Normal 4.5-5.3 [facility] Comment on above: Performed By: #### A [id number] #### [facility] ([facility]) [address] [place] [address] VIR Potassium [Moles/Vol] 4.3 mmol/L Normal 3.5-5.0 [facility] Comment on above: Performed By: #### A [id number] #### [facility] ([facility]) [address] [place] [address] VIR SAMPLE SITE A LINE Normal [facility] Comment on above: Performed By: #### A [id number] #### [facility] ([facility]) [address] [place] [address] VIR SAMPLE TYPE Arterial Normal [facility] Comment on above: Performed By: #### A [id number] #### [facility] ([facility]) [address] [place] [address] VIR POCT ABG Rapid K GLU ICA HHo n 04-30-2025 Arterial patency Wrist artery --pre arterial puncture [facility] Base excess Calc (Bld) [Moles/Vol] 3 mmol/L High 0.0 - 2.0 mmol/L [facility] Calcium.ionized (Bld) [Moles/Vol] 4.7 mg/dL 4.5 - 5.3 mg/dL [facility] CO2 (Bld) [Partial pressure] 38.1 mm[Hg] [facility] Glucose [Mass/Vol] 121 mg/dL High 65 - 99 mg/dL [facility] HCO3 (Bld) [Moles/Vol] 26.9 mmol/L High 22.0 - 26.0 mmol/L [facility] Hematocrit (Bld) [Volume fraction] 35 % Low 39 - 49 % [facility] Hemoglobin (Bld) [Mass/Vol] 11.4 g/dL Low 13.0 - 17.0 g/dL [facility] Interpretation and review of laboratory results Abnormal [facility] Oxygen (Bld) [Partial pressure] 254 mm[Hg] High [facility] Oxygen/Inspired gas setting [Volume Fraction] Ventilator 100.0 % [facility] pH (Bld) 7.457 [pH] High 7.350 - 7.[address] [facility] Potassium [Moles/Vol] 4.3 mmol/L 3.5 - 5.0 mmol/L [facility] Specimen site Narrative A LINE [facility] Specimen type Nom (Spec) Arterial [facility] REPEATED ABORHon 04-30-2025 ABO_INTEP O Normal [facility] Comment on above: Performed By: #### A TESFAYE #### [facility] ([facility]) [address] [place] [address] VIR RH_INTEP Positive Normal [facility] Comment on above: Performed By: #### A TESFAYE #### [facility] ([facility]) [address] [place] [address] VIR RFA Guidance for vascular ac cess of Vesselon 04-30-2025 Please refer to the vascular OP note for a dictation on this exam. [facility] TYPE AND SCREENon 04-30-2025 ABO_INTEP O Normal [facility] Comment on above: Performed By: #### T SC #### [facility] ([facility]) [address] [facility] [place] [address] VIR Performed By: #### A TESFAYE #### [facility] ([facility]) [address] [facility] [place] [address] VIR RH_INTEP Positive Normal [facility] Comment on above: Performed By: #### T SC #### [facility] ([facility]) [address] [facility] [place] [address] VIR Performed By: #### A TESFAYE #### [facility] ([facility]) [address] [place] [address] VIR Type and screen (Pre-op)on 0 04-30-2025 ABO O [facility] Rh Nom (Bld) Positive [facility] 30on 04-06-2025 30 Daily Case Managemen t Update Barriers to Discharge: Authorization required to return to [facility]. SW submitting prior authorization request. [...] Consultation Consultation and Management 04/05/25 1055 Normal [facility] 30 The patient is Moderately Stable - [...] and maintained or improved Outcome: Progressing Normal [facility] DSon 04-06-2025 DS Admission Admitted 04/05/2025 for [...] hen 5-325 mg tablet Commonly known as: Haynes Os-Juan 500 + D3 500 mg-5 mcg (200 unit) tablet Generic drug: calcium carbonate-vitamin D3 pantoprazole 40 mg EC tablet Commonly known as: ProtoNix Remeron 15 mg tablet Generic drug: mirtazapine roflumilast 500 mcg tablet Commonly known as: Daliresp Where to Get Your Medications These medications were sent to [facility] - [place], [place] - [address] [place] [address], [facility] [address] apixaban 2.5 mg tablet aspirin 81 mg EC tablet atorvastatin 40 mg tablet clopidogrel 75 mg tablet metoprolol succinate XL 50 mg 24 hr tablet Activity Normal activity as tolerated, Follow fallprecatiouns Diet Allergies Patient has no known allergies. Hospital Course htn Coronary artery disease status post PCI to proximal and mid LAD Normal LVEF 55% based on transthoracic echocardiogram in [facility] on 03/29/2025 Paroxysmal atrial fibrillation, CHADSVASC of [...] Procedure Abnormality Status --------- ------ CBC auto differential[[id number]] Abnormal Final result Please view results for these tests on the individual orders. LIPID PANEL Triglycerides 61 Cholesterol 136 LDL Calculated 83 HDL 41 Non HDL Cholesterol 95 Total VLDL-C 12 Cholesterol/HDL Ratio 3.3 HEMOGLOBIN A1C Nutrition Scr (more content not included)... Normal [facility] 30on 04-05-2025 30 The patient is Moderately Stable - Low risk of patient condition declining or worsening The patient's goals for the shift include comfort/rest The clinical goals for the shift include vital signs stable Problem: Safety - Adult Goal: Free from fall injury Outcome: Progressing Problem: Pain - Adult Goal: Verbalizes/displays adequate comfort level or baseline comfort level Outcome: Progressing Normal [facility] 30 The patient is Moderately Stable - Low risk of patient condition declining or worsening The patient's goals for the shift include The clinical goals for the shift include Problem: Pain - Adult Goal: Verbalizes/displays adequate comfort level or baseline comfort level Outcome: Progressing Problem: Safety - Adult Goal: Free from fall injury Outcome: Progressing Normal [facility] CBC WITH AUTO DIFFERENTIALon 04-05-2025 Basophils (Bld) [#/Vol] 0.06 10*3/uL Normal 0.00-0.20 [facility] Comment on above: Performed By: #### L [id number] ####[facility])[address] [place] [address] Basophils/100 WBC (Bld) 0.6 % Normal 0.0-1.0 [facility] Comment on above: Performed By: #### L [id number] ####[facility])[address] [place] [address] Eosinophils (Bld) [#/Vol] 0.06 10*3/uL Normal 0.00-0.50 [facility] Comment on above: Performed By: #### L [id number] ####[facility])[address] [place] [address] Eosinophils/100 WBC (Bld) 0.6 % Normal 0.0-6.0 [facility] Comment on above: Performed By: #### L [id number] ####[facility] ([facility])[address] [place] [address] Erythrocyte distribution width (RBC) [Ratio] 15.0 % Normal 11.5-15.0 [facility] Comment on above: Performed By: #### L [id number] ####[facility])[address] [place] [address] ERYTHROCYTE MEAN CORPUSCULAR HEMOGLOBIN CONCENTRATION (G/DL) BY AUTOMATED 31.5 g/dL Low 32.0-35.0 [facility] Comment on above: Performed By: #### L [id number] ####[facility] ([facility])[address] [place] [address] Hematocrit (Bld) [Volume fraction] 36.2 % Low 39.0-50.0 [facility] Comment on above: Performed By: #### L [id number] ####[facility] ([facility])[address] [place] [address] Hemoglobin (Bld) [Mass/Vol] 11.4 g/dL Low 13.0-17.0 [facility] Comment on above: Performed By: #### L [id number] ####[facility])[address] [place] [address] Immature granulocytes (Bld) [#/Vol] 0.14 10*3/uL Normal 0.00-0.20 [facility] Comment on above: Performed By: #### L [id number] ####[facility] ([facility])[address] [place] [address] Immature granulocytes/100 WBC (Bld) 1.4 % High 0.0-1.0 [facility] Comment on above: Performed By: #### L [id number] ####[facility] ([facility])[address] [place] [address] Lymphocytes (Bld) [#/Vol] 1.46 10*3/uL Normal 1.20-4.00 [facility] Comment on above: Performed By: #### L [id number] ####[facility] ([facility])[address] [place] [address] Lymphocytes/100 WBC (Bld) 14.8 % Low 20.0-45.0 [facility] Comment on above: Performed By: #### L [id number] ####[facility] ([facility])[address] [place] [address] MCH (RBC) [Entitic mass] 28.3 pg Normal 27.0-33.0 [facility] Comment on above: Performed By: #### L [id number] ####[facility] ([facility])[address] [place] [address] MCV (RBC) [Entitic vol] 89.8 fL Normal 82.0-98.0 [facility] Comment on above: Performed By: #### L [id number] ####[facility] ([facility])[address] [place] [address] Monocytes (Bld) [#/Vol] 0.58 10*3/uL Normal 0.10-1.00 [facility] Comment on above: Performed By: #### L [id number] ####[facility] ([facility])[address] [place] [address] Monocytes/100 WBC (Bld) 5.9 % Normal 5.0-12.0 [facility] Comment on above: Performed By: #### L [id number] ####[facility] ([facility])[address] [place] [address] Neutrophils (Bld) [#/Vol] 7.56 10*3/uL Normal 1.60-7.60 [facility] Comment on above: Performed By: #### L [id number] ####[facility] ([facility])[address] [place] [address] Neutrophils/100 WBC (Bld) 76.7 % High 40.0-72.0 [facility] Comment on above: Performed By: #### L [id number] ####[facility] ([facility])[address] [place] [address] NRBC (PER 100 WBCS) BY AUTOMATED COUNT 0.0 % Normal 0 [facility] Comment on above: Performed By: #### L [id number] ####[facility] ([facility])[address] [place] [address] PLATELETS (10*3/UL) IN BLOOD AUTOMATED COUNT 359 10*3/uL Normal 150-400 [facility] Comment on above: Performed By: #### L [id number] ####[facility] ([facility])[address] [place] [address] RBC (Bld) [#/Vol] 4.03 10*6/uL Low 4.20-5.70 [facility] Comment on above: Performed By: #### L [id number] ####[facility] ([facility])[address] [place] [address] WBC (Bld) [#/Vol] 9.86 10*3/uL Normal 4.00-10.60 [facility] Comment on above: Performed By: #### L [id number] ####[facility] ([facility])[address] [place] [address] COMPREHENSIVE METABOLIC PANE [place] 04-05-2025 Albumin [Mass/Vol] 3.4 g/dL Low 3.5-5.7 [facility] Comment on above: Performed By: #### L [id number] #### [facility] ([facility]) [address] [place] [address] ALP [Catalytic activity/Vol] 63 U/L Normal 34-104 [facility] Comment on above: Performed By: #### L [id number] #### [facility] [address] [place] [address] ALT [Catalytic activity/Vol] 9 U/L Normal 7-52 [facility] Comment on above: Performed By: #### L [id number] #### [facility] ([facility]) [address] [place] [address] Anion gap [Moles/Vol] 12 mmol/L Normal 7-20 [facility] Comment on above: Performed By: #### L [id number] #### [facility] ([facility]) [address] [place] [address] AST [Catalytic activity/Vol] 15 U/L Normal 13-39 [facility] Comment on above: Performed By: #### L [id number] #### [facility] ([facility]) [address] [place] [address] Bilirubin [Mass/Vol] 0.3 mg/dL Normal 0.3-1.0 [facility] Comment on above: Performed By: #### L [id number] #### [facility] ([facility]) [address] [place] [address] Calcium [Mass/Vol] 8.7 mg/dL Normal 8.6-10.3 [facility] Comment on above: Performed By: #### L [id number] #### [facility] ([facility]) [address] [place] [address] Chloride [Moles/Vol] 106 mmol/L Normal 98-107 [facility] Comment on above: Performed By: #### L [id number] #### [facility] ([facility]) [address] [place] [address] CO2 [Moles/Vol] 27 mmol/L Normal 21-31 [facility] Comment on above: Performed By: #### L [id number] #### [facility] ([facility]) [address] [place] [address] Creatinine [Mass/Vol] 0.72 mg/dL Normal 0.70-1.30 [facility] Comment on above: Performed By: #### L [id number] #### [facility] ([facility]) [address] [place] [address] GLOMERULAR FILTRATION RATE ML/MIN/1.73 SQ M.PREDICTED 100.8 mL/min/1.73m*2 Normal >60.0 [facility] Comment on above: Result Comment: The [facility]???s estimated glomerular filtration rate (eGFR) will no [...] individuals. Performed By: #### L [id number] #### [facility] ([facility]) [address] [place] [address] Glucose [Mass/Vol] 107 mg/dL High 70-100 [facility] Comment on above: Performed By: #### L [id number] #### [facility] ([facility]) [address] [place] [address] Potassium [Moles/Vol] 3.7 mmol/L Normal 3.5-5.1 [facility] Comment on above: Performed By: #### L [id number] #### [facility] ([facility]) [address] [place] [address] Protein [Mass/Vol] 6.3 g/dL Normal 6.0-8.3 [facility] Comment on above: Performed By: #### L [id number] #### [facility] ([facility]) [address] [place] [address] Sodium [Moles/Vol] 141 mmol/L Normal 136-145 [facility] Comment on above: Performed By: #### L [id number] #### [facility] ([facility]) [address] [place] [address] Urea nitrogen [Mass/Vol] 18 mg/dL Normal 7-25 [facility] Comment on above: Performed By: #### L [id number] #### [facility] [facility] ([facility]) [address] [facility] [place] [address] UREA NITROGEN/CREATININE (MASS RATIO) IN SER/PLAS 25.0 Normal [facility] Comment on above: Performed By: #### L AB17 #### [facility] ([facility]) [address] [place] [place] [address] HEMOGLOBIN A1Con 04-05-2025 Glucose [Mass/Vol] 97 mg/dL Normal [facility] Comment on above: Performed By: #### L AB90 ####[facility] ([facility])[address] [place] [address] HbA1c (Bld) [Mass fraction] 5.0 % Normal 4.0-6.0 [facility] Comment on above: Performed By: #### L AB90 ####[facility] ([facility])[address] [facility] [place] [address] HPon 04-05-2025 HP H&P reviewed. The patient was examined and there are no changes to the H&P. Normal [facility] LIPID PANELon 04-05-2025 CHOL/HDL 3.3 mg/dL Normal [facility] Comment on above: Performed By: #### L AB18 #### [facility] ([facility]) [address] [place] [address] Cholesterol [Mass/Vol] 136 mg/dL Normal 120-200 [facility] Comment on above: Performed By: #### L AB18 #### [facility] ([facility]) [address] [place] [address] Magnesium [Mass/Vol] 61 mg/dL Normal <150 [facility] Comment on above: Result Comment: TRIG LYCERIDE REFERENCE RANGE: 20 YEARS AND OLDER CARDIOVASCULAR RISK LESS THAN 150 mg/dL LOW RISK 150 TO 199 mg/dL BORDERLINE RISK 200 mg/dL AND GREATER HIGH RISK Performed By: #### L AB18 #### [facility] ([facility]) [address] [place] [address] Magnesium [Mass/Vol] 83 mg/dL Normal 0-160 [facility] Comment on above: Performed By: #### L AB18 #### [facility] ([facility]) [address] [place] [address] Magnesium [Mass/Vol] 41 mg/dL Normal 23-92 [facility] Comment on above: Performed By: #### L AB18 #### [facility] ([facility]) [address] [place] [address] NON HDL CHOL. (LDL+VLDL) 95 Normal [facility] Comment on above: Performed By: #### L AB18 #### [facility] ([facility]) [address] [place] [address] TOTAL VLDL-C 12 mg/dL Normal 0-40 [facility] Comment on above: Performed By: #### L AB18 #### [facility] ([facility]) [address] [place] [address] MAGNESIUMon 04-05-2025 Magnesium [Mass/Vol] 1.7 mg/dL Low 1.9-2.7 [facility] Comment on above: Performed By: #### L AB103 ####[facility] ([facility])[address] [place] [address] ALL CBC WITH AUTO DIFFon BASOPHILS ABSOLUTE AUTO 0 [facility] Healthcare Basophils/100 WBC (Bld) 0.2 % 0.2 - 2.0 % [facility] Healthcare Eosinophils/100 WBC (Bld) 0.2 % Low 0.9 - 7.0 % [facility] Healthcare Erythrocyte distribution width (RBC) [Ratio] 14.8 % 11.0 - 15.0 % [facility] Hematocrit (Bld) [Volume fraction] 35.8 % Low 42.0 - 54.0 % [facility] Hemoglobin (Bld) [Mass/Vol] 11.4 g/dL Low 14.0 - 18.0 g/dL [facility] IMMATURE GRANULOCYTES ABS AUTO 0.08 High [facility] Healthcare Immature granulocytes/100 WBC (Bld) 0.9 % High 0.0 - 0.5 % [facility] Interpretation and review of laboratory results Abnormal [facility] LYMPHOCYTES ABSOLUTE AUTO 2 [facility] Lymphocytes/100 WBC (Bld) 23 % 20.5 - 60.0 % [facility] MCH (RBC) [Entitic mass] 28.3 pg 25.9 - 34.0 pg [facility] MCHC (RBC) [Mass/Vol] 31.8 g/dL 29.9 - 35.2 g/dL [facility] MCV (RBC) [Entitic vol] 88.8 fL 80.0 - 94.0 fL [facility] MONOCYTES ABSOLUTE AUTO 0.6 [facility] Monocytes/100 WBC (Bld) 7.3 % 1.7 - 12.0 % [facility] NEUTROPHILS ABSOLUTE AUTO 6 [facility] Neutrophils/100 WBC (Bld) 68.4 % 43.0 - 75.0 % [facility] Platelet mean volume (Bld) [Entitic vol] 8.7 fL Low 9.5 - 13.5 fL [facility] TBH EO # 0 [facility] PLT [address] [facility] RBC 4.03 Low [facility] WBC 8.8 [facility] 36on 04-02-2025 36 Regarding stress justin t [...] BMP prior to that. Mora in the candlemaking laborer was able to get ahold of the [facility]. She will fax instructions and orders to them. Normal [facility] Orders Onlyon 04-02-2025 Orders Only [id number] Jinny,Mateo Payan 1960 M Date Provider Department Center 04/02/2025 [facility] Family History Problem Relation Age of Onset Emphysema Father Accidental Sister Family Status - Relation Status Age at Mother Father Sister Normal [facility] CA ECHO DOPPLER COMPLETEon 0 03-29-2025 The [facility] [address] [place] [address] Cardiology Report Signed Patient: JINNYMATEO Payan MR#: [id number] : 1960 Acct:[id number] Age/Sex: 64 / M ADM Date: 03/29/25 Loc: CARD Attending Dr: RENE FAJARDO Ordering Physician: RENE FAJARDO Date of Service: 03/29/25 Procedure(s): CA echo doppler complete Accession Number(s): [id number] cc: Kathie Sánchez NP; RENE FAJARDO Patient Name: MATEO STEARNS MR#: [id number] : 1960 Exam Date: 03/29/2025 Ordering Doctor: [...] Area (VTI): 3.36 cm2, 3.36 cm2 Deceleration Calvert: Pressure Half-Time: Peak Velocity(Antegrade Flow): 0.82 m/s Peak Gradient(Antegrade Flow): 2.71 mm[Hg] Mean Velocity(Antegrade Flow): 0.56 m/s Mean Gradient(Antegrade Flow): 1.43 mm[Hg] Velocity Time Integral: 16.56 cm Tricuspid Valve Peak Velocity (Regurgitant Flow): 2.86 m/s Peak Velocity: Pulmonic Valve Mean Gradient: 1.14 mm[Hg] Mean Velocity: 0.50 m/s Peak Velocity: 0.77 m/s, 0.73 m/s Peak Gradient: 2.14 mm[Hg], 2.36 (more content not included)... [facility] Radiology, Radiologist, MD - 03/29/[address] [address] Cardiology Report Signed Patient: MATEO STEARNS MR#: [id number] : 1960 Acct:[id number] Age/Sex: 64 / M ADM Date: 03/29/25 Loc: CARD Attending Dr: RENE FAJARDO Ordering Physician: RENE FAJARDO Date of Service: 03/29/25 Procedure(s): CA echo doppler complete Accession Number(s): [id number] cc: Kathie Sánchez NP; RENE FAJARDO Patient Name: MATEO STEARNS MR#: [id number] : 1960 Exam Date: 03/29/2025 Ordering Doctor: [...] Area (VTI): 3.36 cm2, 3.36 cm2 Deceleration Calvert: Pressure Half-Time: Peak Velocity(Antegrade Flow): 0.82 m/s [...] Signed By: 03/29/25 174 DD/ 40 TD/TT: Process Engineering Technician: [facility] Radiology Study observation (narrative) [facility] CA ECHO DOPPLER COMPLETEOrde red By: Radiologist Radiology on 03-29-2025 [facility] Work Phone: NM AGATHA PERF SPECT REST STRon 03-29-2025 [place] [address] Nuclear Medicine Report Signed Patient: MATEO STEARNS MR#: [id number] : 1960 Acct:[id number] Age/Sex: 64 / M ADM Date: 03/29/25 Loc: CARD Attending Dr: RENE FAJARDO Ordering Physician: RENE FAJARDO Date of Service: 03/29/25 Procedure(s): NM agatha perf SPECT rest str Accession Number(s): [id number] cc: Kathie Sánchez EQUINE VET; RENE FAJARDO Patient Name: MATEO STEARNS MR#: [id number] : 1960 Exam Date: 03/29/2025 Ordering Doctor: [...] the study was pending per attending physician [facility]. For more details, please see separate [...] Signed By: 03/29/25 1343 DD/ 1342 TD/TT: Process Engineering Technician: [facility] Radiology, Radiologist, - 03/29/2025 [place] [address] Nuclear Medicine Report Signed Patient: MATEO STEARNS MR#: [id number] : 1960 Acct:[id number] Age/Sex: 64 / M ADM Date: 03/29/25 Loc: CARD Attending Dr: RENE FAJARDO Ordering Physician: RENE FAJARDO Date of Service: 03/29/25 Procedure(s): NM agatha perf SPECT rest str Accession Number(s): [id number] cc: Kathie Sánchez EQUINE VET; RENE FAJARDO Patient Name: MATEO STEARNS MR#: [id number] : 1960 Exam Date: 03/29/2025 Ordering Doctor: [...] the study was pending per attending physician [facility]. For more details, please see separate [...] Signed By: 03/29/25 1343 DD/ 1342 TD/TT: Process Engineering Technician: [facility] Radiology Study observation (narrative) [facility] NM AGATHA PERF SPECT REST STROr dered By: Radiologist Radiology on 03-29-2025 [facility] Work Phone: HPon 03-15-2025 [facility] Cardiology [facility] Subjective Mateo Stearns is a 64 y.o. year old male patient being seen for surgery clearence for AAA. Patient denies chest pain, palpitations or leg swelling. C/O SOB. Patient states he has had previous A-Fib. Patient Active Problem List Diagnosis Abdominal aortic aneurysm (AAA) without rupture Age-related nuclear cataract of both eyes [facility] Anxiety disorder, unspecified Arthritis Atherosclerosis of aorta [...] endovascular repair by Dr. Sadie Piper at [facility] vascular. Prior medical history is significant for COPD, emphysema [Was admitted with pneumonia to the [facility] in December 2024] and atrial fibrillation. [...] Rfl: dilT (more content not included)... Normal [facility] Office Visiton 03-15-2025 Follow-up visit [id number] Mateo Stearns 1960 M Date Provider Department Center 03/15/2025 R[facility] Family History Problem Relation Age of Onset Emphysema Father Accidental Sister Family Status - Relation Status Age at Mother Father Sister Level of Service:49645 [place] OFFICE/OUTPATIENT NEW MODERATE MDM 45 MINUTES Normal [facility] URINE CULTURE, ROUTINEon Bacteria identified Cx Nom (U) Urine Culture, Routine [facility] Bacteria identified Cx Nom (U) Mixed urogenital juanis [facility] Bacteria identified Cx Nom (U) Less than 10,000 colonies/mL [facility] Bacteria identified Cx Nom (U) Performed at: [facility] Bacteria identified Cx Nom (U) [address] [place], [place] [id number] [facility] Bacteria identified Cx Nom (U) Outreach Manager: Iván Damon PhD, Phone: [phone] [facility] EPITHELIAL CELLSon Epithelial cells LM Ql (Urine sed) Epithelial Cells None seen [facility] No Panel Informationon 02-25 [facility] RESULT 1on 02-25-2025 RESULT 1 Result 1 Many gram positive rods. [facility] RESULT 2on 02-25-2025 RESULT 2 Result 2 Few gram positive cocci [facility] RESULT 3on 02-25-2025 RESULT 3 Result 3 EQUINE VET [facility] RESULT 4on 02-25-2025 RESULT 4 Result 4 EQUINE VET [facility] WHITE BLOOD CELLSon 02-26-20 WHITE BLOOD CELLS White Blood Cells [facility] WHITE BLOOD CELLS Many [facility] XR Hip - right [address] [place] [address] XRay Report Signed Patient: MATEO STEARNS MR#: [id number] : 1960 Acct:[id number] Age/Sex: 64 / M ADM Date: 02/11/25 Loc: EC Attending Dr: Leonor Mart M.D. Ordering Physician: Leonor Mart M.D. Date of Service: 02/11/25 Procedure(s): XR hip RT 2V w/ pelvis Accession Number(s): [id number] cc: Kathie Sánchez EQUINE VET; Leonor Mart M.D. The [place] [id number] Patient Name: MATEO STEANRS MRN: TBH:[id number] date: 1960 Sex: M Assigned Patient Location: Current Patient Location: Accession/Order Number: [id number] Exam Date: 02/11/2025 12:31 Report Date: 02/11/2025 [...] Cummings Jr., D.O.02/11/2025 12:34 PM Dictation Location: [place] [address] Electronically authenticated by: [id number] Y Date: 02/11/2025 12:34 Dictated By: Bobby Cummings M.D. Signed By: 02/11/25 1236 DD/ 1234 TD/TT: Process Engineering Technician: [facility] Radiology, Radiologist, MD - 02/11/2025 [place] [address] XRay Report Signed Patient: MATEO STEARNS MR#: [id number] : 1960 Acct:[id number] Age/Sex: 64 / M ADM Date: 02/11/25 Loc: Attending Dr: Leonor Mart M.D. Ordering Physician: Leonor Mart M.D. Date of Service: 02/11/25 Procedure(s): XR hip RT 2V w/ pelvis Accession Number(s): [id number] cc: Kathie Sánchez EQUINE VET; Leonor Mart M.D. The [place] [address] Patient Name: MATEO STEARNS MRN: [facility]:[id number] date: 1960 Sex: M Assigned Patient Location: Current Patient Location: Accession/Order Number: [id number] Exam Date: 02/11/2025 12:31 Report Date: 02/11/2025 [...] Cummings Jr., D.O.02/11/2025 12:34 PM Dictation Location: [place] [address] Electronically authenticated by: [id number] Y Date: 02/11/2025 12:34 Dictated By: Bobby Cummings M.D. Signed By: 02/11/25 1236 DD/ 1234 TD/TT: Process Engineering Technician: [facility] Radiology Study observation (narrative) [facility] XR Hip - right 3 ViewsOrdere d By: Radiologist Radiology on 02-11-2025 [facility] Work Phone: US Eye+Orbit - bilateralon 0 01-02-2025 Diagnosis: Cataract both eyes (OU) Testing Indication: Performed for preop measurements in the determination of an intraocular lens (IOL) for both eyes (OU) Test Reliability: Good quality both eyes (OU) Interpretation: Good measurements for intraocular lens (IOL) calculation purposes. Calculation made for both eyes (OU). [facility] Radiology Study observation (narrative) [facility] MHPT PSA, DIAGNOSTICon 12-05 Interpretation and review of laboratory results Abnormal [facility] PROSTATE SPECIFIC ANTIGEN DX 4.2 ng/mL High NINF - 4.00 ng/mL [facility] No Panel Informationon 12-05 [facility] CNOVon 11-02-2024 CNOV Office Visit (RADTSA ) MATEO STEARNS ([id number]) 1960 M Date Time Provider Department 11/02/24 [...] Order(s):PROSTATE-SPEC IFIC ANTIGEN DIAGNOSTIC [SQPSA] Order #: [id number] FUTURE Prescriptions as of 11/09/2024 - predniSONE [...] Encounter Status:Closed by Severo DENT on 11/09/24 [facility] CNOVon 10-29-2024 CNOV Office Visit (RADTSA ) MATEO STEARNS ([id number]) 1960 Date Time Provider Department 10/29/24 10:30 [...] CNOV Office Visit (RADTSA ) MATEO STEARNS ([id number]) 1960 M Date Time Provider Department 10/22/24 [...] Encounter Status:Closed by Severo DENT on 10/22/24 [facility] CNOVon 10-15-2024 CNOV Office Visit (RADTSA ) MATEO STEARNS ([id number]) 1960 M Date Time Provider Department 10/15/24 [...] (Bld)on 10-11-2024 Basophils (Bld) [#/Vol] 0.04 10*3/uL [facility] Differential cell count method Nom (Bld) Auto [facility] Eosinophils (Bld) [#/Vol] 0.07 10*3/uL [facility] Immature granulocytes (Bld) [#/Vol] 0.16 10*3/uL High [facility] Immature granulocytes/100 WBC (Bld) 1.1 % [facility] Lymphocytes (Bld) [#/Vol] 1.10 10*3/uL [facility] Monocytes (Bld) [#/Vol] 0.45 10*3/uL [facility] Neutrophils (Bld) [#/Vol] 12.30 10*3/uL High [facility] Nucleated RBC (Bld) [#/Vol] [facility] Nucleated RBC/100 WBC (Bld) [Ratio] 0.0 % /100 WBC [facility] Platelet mean volume (Bld) [Entitic vol] 8.6 fL Low 9.0 - 12.7 fL [facility] Platelets (Bld) [#/Vol] 317 10*3/uL [facility] WBC (Bld) [#/Vol] 14.12 10*3/uL High [facility] Basophils (Bld) [#/Vol] 0.04 10*3/uL Normal <0.11 [facility] Comment on above: Order Comment: Speci men Type: BLOOD SPECIMENOrdering Facility: [facility] Address: [address] [place] [address] Performed By: #### 5 7021-8 ####[facility] LABCLIA [id number] [place] [address] Basophils/100 WBC (Bld) 0.3 % Normal [facility] Comment on above: Order Comment: Speci men Type: BLOOD SPECIMENOrdering Facility: [facility] Address: [address] [place] [address] Performed By: #### 5 7021-8 ####[facility] LABCLIA [id number] [place] [address] Differential cell count method Nom (Bld) Auto Normal [facility] Comment on above: Order Comment: Speci men Type: BLOOD SPECIMENOrdering Facility: [facility] Address: [address] [place] [address] Performed By: #### 5 7021-8 ####[facility] LABCLIA [id number] [place] [address] Eosinophils (Bld) [#/Vol] 0.07 10*3/uL Normal <0.46 [facility] Comment on above: Order Comment: Speci men Type: BLOOD SPECIMENOrdering Facility: [facility] Address: [address] [place] [address] Performed By: #### 5 7021-8 ####[facility] LABCLIA [id number] [place] [address] Eosinophils/100 WBC (Bld) 0.5 % Normal [facility] Comment on above: Order Comment: Speci men Type: BLOOD SPECIMENOrdering Facility: [facility] Address: [address] [place] [address] Performed By: #### 5 7021-8 ####[facility] LABCLIA [id number] [place] [address] Erythrocyte distribution width (RBC) [Ratio] 13.6 % Normal 11.5-15.0 [facility] Comment on above: Order Comment: Speci men Type: BLOOD SPECIMENOrdering Facility: [facility] Address: [address] [place] [address] Performed By: #### 5 7021-8 ####[facility] LABCLIA [id number] [place] [address] Hematocrit (Bld) [Volume fraction] 43.8 % Normal 39.0-51.0 [facility] Comment on above: Order Comment: Speci men Type: BLOOD SPECIMENOrdering Facility: [facility] Address: [address] [place] [address] Performed By: #### 5 7021-8 ####[facility] LABCLIA [id number] [place] [address] Hemoglobin (Bld) [Mass/Vol] 14.8 g/dL Normal 13.0-17.0 [facility] Comment on above: Order Comment: Speci men Type: BLOOD SPECIMENOrdering Facility: [facility] Address: [address] [place] [address] Performed By: #### 5 7021-8 ####[facility] LABCLIA [id number] [place] [address] Immature granulocytes (Bld) [#/Vol] 0.16 10*3/uL High <0.10 [facility] Comment on above: Order Comment: Speci men Type: BLOOD SPECIMENOrdering Facility: [facility] Address: [address] [place] [address] Performed By: #### 5 7021-8 ####[facility] LABCLIA [id number] [place] [address] Immature granulocytes/100 WBC (Bld) 1.1 % Normal [facility] Comment on above: Order Comment: Speci men Type: BLOOD SPECIMENOrdering Facility: [facility] Address: [address] [place] [address] Performed By: #### 5 7021-8 ####[facility] LABCLIA [id number] [place] [address] Lymphocytes (Bld) [#/Vol] 1.10 10*3/uL Normal 1.00-4.00 [facility] Comment on above: Order Comment: Speci men Type: BLOOD SPECIMENOrdering Facility: [facility] Address: [address] [place] [address] Performed By: #### 5 7021-8 ####[facility] LABCLIA [id number] [place] [address] Lymphocytes/100 WBC (Bld) 7.8 % Normal [facility] Comment on above: Order Comment: Speci men Type: BLOOD SPECIMENOrdering Facility: [facility] Address: [address] [place] [address] Performed By: #### 5 7021-8 ####[facility] LABCLIA [id number] [place] [address] MCH (RBC) [Entitic mass] 30.4 pg Normal 26.0-34.0 [facility] Comment on above: Order Comment: Speci men Type: BLOOD SPECIMENOrdering Facility: [facility] Address: [address] [place] [address] Performed By: #### 5 7021-8 ####[facility] LABCLIA [id number] [place] [address] MCHC (RBC) [Mass/Vol] 33.8 g/dL Normal 30.5-36.0 [facility] Comment on above: Order Comment: Speci men Type: BLOOD SPECIMENOrdering Facility: [facility] Address: [address] [place] [address] Performed By: #### 5 7021-8 ####[facility] LABIA [id number] [place] [address] MCV (RBC) [Entitic vol] 89.9 fL Normal 80.0-100.0 [facility] Comment on above: Order Comment: Speci men Type: BLOOD SPECIMENOrdering Facility: [facility] Address: [address] [place] [address] Performed By: #### 5 7021-8 ####[facility] LABCLIA [id number] [place] [address] Monocytes (Bld) [#/Vol] 0.45 10*3/uL Normal <0.87 [facility] Comment on above: Order Comment: Speci men Type: BLOOD SPECIMENOrdering Facility: [facility] Address: [address] [place] [address] Performed By: #### 5 7021-8 ####[facility] LABCLIA [id number] [place] [address] Monocytes/100 WBC (Bld) 3.2 % Normal [facility] Comment on above: Order Comment: Speci men Type: BLOOD SPECIMENOrdering Facility: [facility] Address: [address] [place] [address] Performed By: #### 5 7021-8 ####[facility] LABCLIA [id number] [place] [address] Neutrophils (Bld) [#/Vol] 12.30 10*3/uL High 1.45-7.50 [facility] Comment on above: Order Comment: Speci men Type: BLOOD SPECIMENOrdering Facility: [facility] Address: [address] [place] [address] Performed By: #### 5 7021-8 ####[facility] LABCLIA [id number] [place] [address] Neutrophils/100 WBC (Bld) 87.1 % Normal [facility] Comment on above: Order Comment: Speci men Type: BLOOD SPECIMENOrdering Facility: [facility] Address: [address] [place] [address] Performed By: #### 5 7021-8 ####[facility] LABCLIA [id number] [place] [address] Nucleated RBC (Bld) [#/Vol] 10*3/uL Normal <0.01 [facility] Comment on above: Order Comment: Speci men Type: BLOOD SPECIMENOrdering Facility: [facility] Address: [address] [place] [address] Performed By: #### 5 7021-8 ####[facility] LABCLIA [id number] [place] [address] Nucleated RBC/100 WBC (Bld) [Ratio] 0.0 /100 WBC Normal [facility] Comment on above: Order Comment: Speci men Type: BLOOD SPECIMENOrdering Facility: [facility] Address: [address] [place] [address] Performed By: #### 5 7021-8 ####[facility] LABCLIA [id number] [place] [address] Platelet mean volume (Bld) [Entitic vol] 8.6 fL Low 9.0-12.7 [facility] Comment on above: Order Comment: Speci men Type: BLOOD SPECIMENOrdering Facility: [facility] Address: [address] [place] [address] Performed By: #### 5 7021-8 ####[facility] LABCLIA [id number] [place] [address] Platelets (Bld) [#/Vol] 317 10*3/uL Normal 150-400 [facility] Comment on above: Order Comment: Speci men Type: BLOOD SPECIMENOrdering Facility: [facility] Address: [address] [place] [address] Performed By: #### 5 7021-8 ####[facility] LABIA [id number] [place] [address] RBC (Bld) [#/Vol] 4.87 10*6/uL Normal 4.20-6.[address] [facility] Comment on above: Order Comment: Speci men Type: BLOOD SPECIMENOrdering Facility: [facility] Address: [address] [place] [address] Performed By: #### 5 7021-8 ####[facility] LABCLIA [id number] [place] [address] WBC (Bld) [#/Vol] 14.12 10*3/uL High 3.70-11.00 [facility] Comment on above: Order Comment: Speci men Type: BLOOD SPECIMENOrdering Facility: [facility] Address: [address] [place] [id number] Performed By: #### 5 7021-8 ####[facility] LABCLIA [id number] [place] [address] [facility] CBC W AUTO DIFF BLDon [facility] BASOPHILS # BLD AUTO 0.04 [facility] DIFFERENTIAL METHOD BLD Auto [facility] EOSINOPHIL # BLD AUTO 0.07 [facility] LYMPHOCYTES # BLD AUTO 1.1 [facility] MONOCYTES # BLD AUTO 0.45 [facility] NEUTROPHILS # BLD AUTO 12.3 High [facility] NRBC # BLD AUTO <0.01 [facility] NRBC/100 WBC BLD-RTO 0 /100 WBC [facility] PLATELET # BLD AUTO 317 [facility] PMV BLD AUTO 8.6 fL Low 9.0 - 12.7 fL [facility] WBC # BLD AUTO 14.12 High [facility] IMM GRANULOCYTES # BLD AUTO 0.16 High [facility] IMM GRANULOCYTES/LEUK NFR BLD AUTO 1.1 % [facility] Specimen Type: BLOOD SPECIMEN Ordering Facility: [facility] Address: [address] [place] [address] Original Ordering Provider: Severo Mohan 10-11-2024 CNOV Office Visit (RADTSA ) JINNYMATEO MARSHALL ([id number]) 1960 M Date Time Provider Department 10/11/24 [...] Dayanna Call LPN Referring Provider: Severo DENT [[id number]] Allergies As of Date: 10/11/2024 (No Known Allergies) Date Reviewed: 10/01/2024 Reviewed by: Mona Melvin RN - Fully Assessed Visit Diagnosis:Malignant neoplasm of prostate (HCC) [C61] Order(s):COMPLETE BLOOD COUNT AND DIFFERENTIAL [SQCBCDIF] Order #: [id number]. #:[id number] Prescriptions as of 10/11/2024 - predniSONE (DELTASONE) [...] 06/24/2024 Visit Notes: >> Dayanna Call LPN [facility] Oct 11, 2024 10:55 AM Status: Signed [...] countson 10-11-2024 Basophils/100 WBC (Bld) 0.3 % [facility] Eosinophils/100 WBC (Bld) 0.5 % [facility] Erythrocyte distribution width (RBC) [Ratio] 13.6 % 11.5 - 15.0 % [facility] Hematocrit (Bld) [Volume fraction] 43.8 % 39.0 - 51.0 % [facility] Hemoglobin (Bld) [Mass/Vol] 14.8 g/dL 13.0 - 17.0 g/dL [facility] Lymphocytes/100 WBC (Bld) 7.8 % [facility] MCH (RBC) [Entitic mass] 30.4 pg 26.0 - 34.0 pg [facility] MCHC (RBC) [Mass/Vol] 33.8 g/dL 30.5 - 36.0 g/dL [facility] MCV (RBC) [Entitic vol] 89.9 fL 80.0 - 100.0 fL [facility] Monocytes/100 WBC (Bld) 3.2 % [facility] Neutrophils/100 WBC (Bld) 87.1 % [facility] RBC (Bld) [#/Vol] 4.87 10*6/uL 4.20 - 6.0 0 m/uL [facility] No Panel Informationon 10-11 Interpretation and review of laboratory results Abnormal [facility] CNOVon 10-08-2024 CNOV Office Visit (RADTSA ) JINNYMATEO MARSHALL ([id number]) 1960 M Date Time Provider Department 10/08/24 [...] BLOOD COUNT AND DIFFERENTIAL [SQCBCDIF] Order #: [id number] FUTURE Prescriptions as of 10/08/2024 - predniSONE [...] (Bld)on 10-04-2024 Basophils (Bld) [#/Vol] 0.03 10*3/uL [facility] Differential cell count method Nom (Bld) Auto [facility] Eosinophils (Bld) [#/Vol] [facility] Eosinophils/100 WBC (Bld) 0.0 % [facility] Hemoglobin (Bld) [Mass/Vol] 15.0 g/dL 13.0 - 17.0 g/dL [facility] Immature granulocytes (Bld) [#/Vol] 0.10 10*3/uL High [facility] Immature granulocytes/100 WBC (Bld) 0.9 % [facility] Lymphocytes (Bld) [#/Vol] 1.30 10*3/uL [facility] Monocytes (Bld) [#/Vol] 0.40 10*3/uL [facility] Neutrophils (Bld) [#/Vol] 9.47 10*3/uL High [facility] Nucleated RBC (Bld) [#/Vol] [facility] Nucleated RBC/100 WBC (Bld) [Ratio] 0.0 % /100 WBC [facility] Platelet mean volume (Bld) [Entitic vol] 8.6 fL Low 9.0 - 12.7 fL [facility] Platelets (Bld) [#/Vol] 330 10*3/uL [facility] WBC (Bld) [#/Vol] 11.30 10*3/uL High [facility] Basophils (Bld) [#/Vol] 0.03 10*3/uL Normal <0.11 [facility] Comment on above: Order Comment: Speci men Type: BLOOD SPECIMENOrdering Facility: [facility] Address: [address] [place] [address] Performed By: #### 5 7021-8 ####[facility] LABCLIA [id number] [place] [address] Basophils/100 WBC (Bld) 0.3 % Normal [facility] Comment on above: Order Comment: Speci men Type: BLOOD SPECIMENOrdering Facility: [facility] Address: [address] [place] [address] Performed By: #### 5 7021-8 ####[facility] LABCLIA [id number] [place] [address] Differential cell count method Nom (Bld) Auto Normal [facility] Comment on above: Order Comment: Speci men Type: BLOOD SPECIMENOrdering Facility: [facility] Address: [address] [place] [address] Performed By: #### 5 7021-8 ####[facility] LABCLIA [id number] [place] [address] Eosinophils (Bld) [#/Vol] 10*3/uL Normal <0.46 [facility] Comment on above: Order Comment: Speci men Type: BLOOD SPECIMENOrdering Facility: [facility] Address: [address] [place] [address] Performed By: #### 5 7021-8 ####[facility] LABCLIA [id number] [place] [address] Eosinophils/100 WBC (Bld) 0.0 % Normal [facility] Comment on above: Order Comment: Speci men Type: BLOOD SPECIMENOrdering Facility: [facility] Address: [address] [place] [address] Performed By: #### 5 7021-8 ####[facility] LABCLIA [id number] [place] [address] Erythrocyte distribution width (RBC) [Ratio] 13.5 % Normal 11.5-15.0 [facility] Comment on above: Order Comment: Speci men Type: BLOOD SPECIMENOrdering Facility: [facility] Address: [address] [place] [address] Performed By: #### 5 7021-8 ####[facility] LABCLIA [id number] [place] [address] Hematocrit (Bld) [Volume fraction] 43.9 % Normal 39.0-51.0 [facility] Comment on above: Order Comment: Speci men Type: BLOOD SPECIMENOrdering Facility: [facility] Address: [address] [place] [address] Performed By: #### 5 7021-8 ####[facility] LABIA [id number] [place] [address] Hemoglobin (Bld) [Mass/Vol] 15.0 g/dL Normal 13.0-17.0 [facility] Comment on above: Order Comment: Speci men Type: BLOOD SPECIMENOrdering Facility: [facility] Address: [address] [place] [address] Performed By: #### 5 7021-8 ####[facility] LABCLIA [id number] [place] [address] Immature granulocytes (Bld) [#/Vol] 0.10 10*3/uL High <0.10 [facility] Comment on above: Order Comment: Speci men Type: BLOOD SPECIMENOrdering Facility: [facility] Address: [address] [place] [address] Performed By: #### 5 7021-8 ####[facility] LABCLIA [id number] [place] [address] Immature granulocytes/100 WBC (Bld) 0.9 % Normal [facility] Comment on above: Order Comment: Speci men Type: BLOOD SPECIMENOrdering Facility: [facility] Address: [address] [place] [address] Performed By: #### 5 7021-8 ####[facility] LABCLIA [id number] [place] [address] Lymphocytes (Bld) [#/Vol] 1.30 10*3/uL Normal 1.00-4.00 [facility] Comment on above: Order Comment: Speci men Type: BLOOD SPECIMENOrdering Facility: [facility] Address: [address] [place] [address] Performed By: #### 5 7021-8 ####[facility] LABCLIA [id number] [place] [address] Lymphocytes/100 WBC (Bld) 11.5 % Normal [facility] Comment on above: Order Comment: Speci men Type: BLOOD SPECIMENOrdering Facility: [facility] Address: [address] [place] [address] Performed By: #### 5 7021-8 ####[facility] LABCLIA [id number] [place] [address] MCH (RBC) [Entitic mass] 30.5 pg Normal 26.0-34.0 [facility] Comment on above: Order Comment: Speci men Type: BLOOD SPECIMENOrdering Facility: [facility] Address: [address] [place] [address] Performed By: #### 5 7021-8 ####[facility] LABIA [id number] [place] [address] MCHC (RBC) [Mass/Vol] 34.2 g/dL Normal 30.5-36.0 [facility] Comment on above: Order Comment: Speci men Type: BLOOD SPECIMENOrdering Facility: [facility] Address: [address] [place] [address] Performed By: #### 5 7021-8 ####[facility] LABCLIA [id number] [place] [address] MCV (RBC) [Entitic vol] 89.2 fL Normal 80.0-100.0 [facility] Comment on above: Order Comment: Speci men Type: BLOOD SPECIMENOrdering Facility: [facility] Address: [address] [place] [address] Performed By: #### 5 7021-8 ####[facility] LABCLIA [id number] [place] [address] Monocytes (Bld) [#/Vol] 0.40 10*3/uL Normal <0.87 [facility] Comment on above: Order Comment: Speci men Type: BLOOD SPECIMENOrdering Facility: [facility] Address: [address] [place] [address] Performed By: #### 5 7021-8 ####[facility] LABCLIA [id number] [place] [address] Monocytes/100 WBC (Bld) 3.5 % Normal [facility] Comment on above: Order Comment: Speci men Type: BLOOD SPECIMENOrdering Facility: [facility] Address: [address] [place] [address] Performed By: #### 5 7021-8 ####[facility] LABCLIA [id number] [place] [address] Neutrophils (Bld) [#/Vol] 9.47 10*3/uL High 1.45-7.50 [facility] Comment on above: Order Comment: Speci men Type: BLOOD SPECIMENOrdering Facility: [facility] Address: [address] [place] [address] Performed By: #### 5 7021-8 ####[facility] LABCLIA [id number] [place] [address] Neutrophils/100 WBC (Bld) 83.8 % Normal [facility] Comment on above: Order Comment: Speci men Type: BLOOD SPECIMENOrdering Facility: [facility] Address: [address] [place] [address] Performed By: #### 5 7021-8 ####[facility] LABCLIA [id number] [place] [address] Nucleated RBC (Bld) [#/Vol] 10*3/uL Normal <0.01 [facility] Comment on above: Order Comment: Speci men Type: BLOOD SPECIMENOrdering Facility: [facility] Address: [address] [place] [address] Performed By: #### 5 7021-8 ####[facility] LABCLIA [id number] [place] [address] Nucleated RBC/100 WBC (Bld) [Ratio] 0.0 /100 WBC Normal [facility] Comment on above: Order Comment: Speci men Type: BLOOD SPECIMENOrdering Facility: [facility] Address: [address] [place] [address] Performed By: #### 5 7021-8 ####[facility] LABCLIA [id number] [place] [address] Platelet mean volume (Bld) [Entitic vol] 8.6 fL Low 9.0-12.7 [facility] Comment on above: Order Comment: Speci men Type: BLOOD SPECIMENOrdering Facility: [facility] Address: [address] [place] [address] Performed By: #### 5 7021-8 ####[facility] LABCLIA [id number] [place] [address] Platelets (Bld) [#/Vol] 330 10*3/uL Normal 150-400 [facility] Comment on above: Order Comment: Speci men Type: BLOOD SPECIMENOrdering Facility: [facility] Address: [address] [place] [address] Performed By: #### 5 7021-8 ####[facility] LABCLIA [id number] [place] [address] RBC (Bld) [#/Vol] 4.92 10*6/uL Normal 4.20-6.[address] [facility] Comment on above: Order Comment: Speci men Type: BLOOD SPECIMENOrdering Facility: [facility] Address: [address] [place] [address] Performed By: #### 5 7021-8 ####[facility] LABCLIA [id number] [place] [address] WBC (Bld) [#/Vol] 11.30 10*3/uL High 3.70-11.00 [facility] Comment on above: Order Comment: Speci men Type: BLOOD SPECIMENOrdering Facility: [facility] Address: [address] [place] [address] Performed By: #### 5 7021-8 ####[facility] LABCLIA [id number] [place] [address] [facility] CBC W AUTO DIFF BLDon [facility] BASOPHILS # BLD AUTO 0.03 [facility] DIFFERENTIAL METHOD BLD Auto [facility] EOSINOPHIL # BLD AUTO <0.03 [facility] LYMPHOCYTES # BLD AUTO 1.3 [facility] MONOCYTES # BLD AUTO 0.4 [facility] NEUTROPHILS # BLD AUTO 9.47 High [facility] NRBC # BLD AUTO <0.01 [facility] NRBC/100 WBC BLD-RTO 0 /100 WBC [facility] PLATELET # BLD AUTO 330 [facility] PMV BLD AUTO 8.6 fL Low 9.0 - 12.7 fL [facility] WBC # BLD AUTO 11.3 High [facility] Eosinophils/100 WBC (Bld) 0 % [facility] Hemoglobin (Bld) [Mass/Vol] 15 g/dL 13.0 - 17.0 g/dL [facility] IMM GRANULOCYTES # BLD AUTO 0.1 High [facility] IMM GRANULOCYTES/LEUK NFR BLD AUTO 0.9 % [facility] Healthcare Specimen Type: BLOOD SPECIMEN Ordering Facility: [facility] Address: [address], [place] [id number] Original Ordering Provider: Severo Mohan 10-04-2024 CNOV Office Visit (RADTSA ) MATEO STEARNS ([id number]) 1960 M Date Time Provider Department 10/04/24 [...] BLOOD COUNT AND DIFFERENTIAL [SQCBCDIF] Order #: [id number]. #:[id number] Prescriptions as of 10/04/2024 - predniSONE (DELTASONE) [...] 06/24/2024 Visit Notes: >> Dayanna Call LPN [facility] Oct 04, 2024 3:20 PM Status: Signed [...] countson 10-04-2024 Basophils/100 WBC (Bld) 0.3 % [facility] Erythrocyte distribution width (RBC) [Ratio] 13.5 % 11.5 - 15.0 % [facility] Hematocrit (Bld) [Volume fraction] 43.9 % 39.0 - 51.0 % [facility] Lymphocytes/100 WBC (Bld) 11.5 % [facility] MCH (RBC) [Entitic mass] 30.5 pg 26.0 - 34.0 pg [facility] MCHC (RBC) [Mass/Vol] 34.2 g/dL 30.5 - 36.0 g/dL [facility] MCV (RBC) [Entitic vol] 89.2 fL 80.0 - 100.0 fL [facility] Monocytes/100 WBC (Bld) 3.5 % [facility] Neutrophils/100 WBC (Bld) 83.8 % [facility] RBC (Bld) [#/Vol] 4.92 10*6/uL 4.20 - 6.0 0 m/uL [facility] No Panel Informationon 10-04 Interpretation and review of laboratory results Abnormal [facility] CNOVon 10-01-2024 CNOV Office Visit (RADTSA ) JINNYMATEO MARSHALL ([id number]) 1960 M Date Time Provider Department 10/01/24 10:30 AM Severo DENT During your visit today, we recorded the following information about you: Temperature Pulse Respiration Blood pressure 97.9 degrees 99/minute 18/minute 129/83 Weight 67.6 kg Severo Dent MD 10/01/2024 10:51 AM Signed Radiation Oncology - On Treatment Review (OTR) Note PATIENT NAME: Mateo Stearns PATIENT DIAGNOSIS: Prostate adenocarcinoma, initial PSA 4.46, biopsy [place] score 3 + 3 = 6 (grade [...] Encounter Status:Closed by Severo DENT on 10/01/24 [facility] CNOVon 09-25-2024 CNOV Office Visit (RADTSA ) MATEO STEARNS ([id number]) 1960 M Date Time Provider Department 09/25/24 2:00 PM Severo DENT [facility] During your visit today, we recorded the following information about you: Weight 67.1 kg Severo Dent MD 09/26/2024 4:56 PM Signed Radiation Oncology - On Treatment Review (OTR) Note PATIENT NAME: Mateo Stearns PATIENT DIAGNOSIS: Prostate adenocarcinoma, initial PSA 4.46, biopsy [place] score 3 + 3 = 6 (grade [...] Severo Dent MD Referring Provider: Severo DENT [[id number]] Allergies As of Date: 09/25/2024 (No Known [...] Encounter Status:Closed by Severo DENT on 09/26/24 [facility] 09-24-2024 [facility] Telephone ([employer]) MATEO STEARNS ([id number]) 1960 M Date Time Provider Department 09/24/24 Severo DENT [employer] During your visit today, we recorded the [...] BLOOD COUNT AND DIFFERENTIAL [SQCBCDIF] Order #: [id number] FUTURE Prescriptions as of 09/24/2024 - predniSONE [...] Encounter Status:Closed by DAYANNA CALL on 09/24/24 [facility] CNOVon 09-17-2024 CNOV Office Visit (RADTSA ) MATEO STEARNS ([id number]) 1960 Date Time Provider Department 09/17/24 11:45 AM Severo DENT During your visit today, we recorded the following information about you: Referring Provider: Severo DENT [[id number]] Allergies As of Date: 09/17/2024 (No Known Allergies) Date Reviewed: 09/11/2024 Reviewed by: Dayanna Call LPN - Fully Assessed Reason for Visit: Simulation Request Form [4065] Primary Visit Diagnosis:Malignant neoplasm of prostate (HCC) [C61] Order(s):RADIATION TREATMENT PER RADIATION ONCOLOGIST PLAN [[id number]] Order #: [id number]: 1 PT ED CANCER [[id number]] Order #: [id number]: 1 CT SIM PLANNING RADIATION ONCOLOGY [3757075] Order #: [id number] Prescriptions as of 09/17/2024 - predniSONE (DELTASONE) [...] Encounter Status:Closed by Severo DENT on 09/17/24 [facility] 09-14-2024 [facility] Tele[facility] ([employer]) MATEO STEARNS ([id number]) 1960 Date Time Provider Department 09/14/24 Severo [...] and I have him scheduled with a [facility] appointment (Phone call) to discuss his Financial [...] Encounter Status:Closed by MONA MELVIN on 09/14/24 [facility] CNOVon 09-11-2024 CNOV Office Visit (RADTSA ) MATEO STEARNS ([id number]) 1960 M Date Time Provider Department 09/11/24 [...] ASSESSMENT/PLAN: Prostate adenocarcinoma, initial PSA 4.46, biopsy [place] score 3 + 3 = 6 (grade [...] IMRT a (more content not included)... [facility]07 Interpretation and review of laboratory results Abnormal [facility] PROSTATE SPECIFIC ANTIGEN DX 7.20 ng/mL High NINF - 4.00 ng/mL [facility] No Panel Informationon 09-07 [facility] CNOVon 07-12-2024 CNOV Office Visit (RADTSA ) MATEO STEARNS ([id number]) 1960 [place] Date Time Provider Department 07/12/24 [...] CNOV Office Visit (RADTSA ) MATEO STEARNS ([id number]) 1960 M Date Time Provider Department 06/21/24 [...] with prostate adenocarcinoma, initial PSA 4.46, biopsy [place] score 3 + 3 = 6 (grade [...] CNOV Office Visit (ZAK ) MATEO STEARNS ([id number]) 1960 [place] Date Time Provider Department 06/01/24 1:45 PM AMANDEEP CRISOSTOMO During your visit today, we recorded the following information about you: Pulse Blood pressure Weight Height 88/minute 138/81 68 kg 1.753 m Amandeep Crisostomo MD 06/24/2024 4:18 PM Signed Referring Provider: Chief Complaint: Recently diagnosed CaP HPI: 63 year old male from [place], [place] with a PMHx of COPD (40 pack-year smoker), Afib (on ASA), and GERD diagnosed with CAP in 05/20 which showed 2 cores of [place] 6 disease. He has sever COPD with [...] review Assessment 63 year old male from [place], [place] with a PMHx of COPD (40 pack-year smoker and poor oxygenation status), Afib (on ASA), and GERD diagnosed with CAP in 05/20 which showed 2 cores of [place] 6 disease. Recently had more + cores on a repeat biopsy and is here (more content not included)... Normal [facility] URINALYSIS, REFLEX MICROSCOP ICon 06-01-2024 Bilirubin Ql (U) Negative Negative [facility] Clarity (Unsp spec) Clear Clear [facility] Color (U) Yellow Yellow [facility] Glucose Test strip (U) [Mass/Vol] Negative Negative [facility] Hemoglobin Ql (U) Negative Negative [facility] Interpretation and review of laboratory results Normal [facility] Ketones Ql (U) Negative Negative [facility] Leukocyte esterase Test strip Ql (U) Negative Negative [facility] Nitrite Ql (U) Negative Negative [facility] pH (U) 5.5 [pH] NINF - 8.5 [facility] Protein (U) [Mass/Vol] Negative Negative [facility] Specific gravity (U) [Rel density] 1.009 1.005 - 1.030 [facility] Urobilinogen Ql (U) 0.2 EU/dL 0.2-1.0 EU/dL [facility] This test was developed and its performance characteristics determined by [facility] Pathology [facility] Laboratory [facility] [place] ([facility]). It has not been cleared or approved by the FDA. -[facility] is regulated under CLIA as qualified to perform high-complexity testing. This test is used for clinical purposes. It should not be regarded as investigational or for research. [facility] Bilirubin Ql (U) Negative Normal Negative [facility] Comment on above: Order Comment: Speci men Type: URINE SPECIMENOrdering Facility: [facility] Address: [address] [place] [address] Performed By: #### L [id number] ####[facility] LABIA [id number] [place] [address] [place] Clarity (Unsp spec) Clear Normal Clear [facility] Comment on above: Order Comment: Speci men Type: URINE SPECIMENOrdering Facility: [facility] Address: [address] [place] [address] Performed By: #### L [id number] ####[facility] LABIA [id number] [place] [address] [place] Color (U) Yellow Normal Yellow [facility] Comment on above: Order Comment: Speci men Type: URINE SPECIMENOrdering Facility: [facility] Address: [address] [place] [address] Performed By: #### L [id number] ####[facility] LABCLIA [id number] [place] [address] [place] Glucose Test strip (U) [Mass/Vol] Negative Normal Negative [facility] Comment on above: Order Comment: Speci men Type: URINE SPECIMENOrdering Facility: [facility] Address: [address] [place] [address] Performed By: #### L [id number] ####[facility] LABCLIA [id number] [place] [address] [place] Hemoglobin Ql (U) Negative Normal Negative [facility] Comment on above: Order Comment: Speci men Type: URINE SPECIMENOrdering Facility: [facility] Address: [address] [place] [address] Performed By: #### L [id number] ####[facility] LABCLIA [id number] [place] [address] [place] Ketones Ql (U) Negative Normal Negative [facility] Comment on above: Order Comment: Speci men Type: URINE SPECIMENOrdering Facility: [facility] Address: [address] [place] [address] Performed By: #### L [id number] ####[facility] LABCLIA [id number] [place] [address] [place] Leukocyte esterase Test strip Ql (U) Negative Normal Negative [facility] Comment on above: Order Comment: Speci men Type: URINE SPECIMENOrdering Facility: [facility] Address: [address] [place], [place] [address] Performed By: #### L [id number] ####[facility] LABCLIA [id number] [place] [address] [place] Nitrite Ql (U) Negative Normal Negative [facility] Comment on above: Order Comment: Speci men Type: URINE SPECIMENOrdering Facility: [facility] Address: [address] [place] [address] Performed By: #### L [id number] ####[facility] LABCLIA [id number] [place] [address] [place] pH (U) 5.5 [pH] Normal <8.5 [facility] Comment on above: Order Comment: Speci men Type: URINE SPECIMENOrdering Facility: [facility] Address: [address] [place] [address] Performed By: #### L [id number] ####[facility] LABCLIA [id number] [place] [address] [place] Protein (U) [Mass/Vol] Negative Normal Negative [facility] Comment on above: Order Comment: Speci men Type: URINE SPECIMENOrdering Facility: [facility] Address: [address] [place] [address] Performed By: #### L [id number] ####[facility] LABCLIA [id number] [place] [address] [place] Specific gravity (U) [Rel density] 1.009 Normal 1.005-1.030 [facility] Comment on above: Order Comment: Speci men Type: URINE SPECIMENOrdering Facility: [facility] Address: [address] [place] [address] Performed By: #### L [id number] ####[facility] LABIA [id number] [place] [address] [place] Urobilinogen Ql (U) 0.2 EU/dL Normal 0.2-1.0 EU/dL [facility] Comment on above: Order Comment: Speci men Type: URINE SPECIMENOrdering Facility: [facility] Address: [address] [place] [id number] Performed By: #### L [id number] ####[facility] LABCLIA [id number] JOSE ALFREDOAsia RAYMUNDO [id number] [address] [place] Ambulatory Visit Summaryon [...] [facility] [address] , [place] [phone] Someone Will Contact You Regarding These Appointments [facility] External Ambulatory Referral, Other (needs to be [...] often, espec (more content not included)... Normal [facility] Patient Educationon 05-21-20 Patient Education Oncology Prostate [...] likelihood that the cancer will spread. ? [place] 6 or lower: This indicates that the cancer cells look similar to normal prostate cells (well differentiated). ? [place] 7: This indicates that the cancer cells [...] external be (more content not included)... Normal [facility] Urology Office/Clinic Noteon 05-21-2024 Urology Office/Clinic Note [...] 10%. 2 HGPINs. S/p TRUS/bx 05/01/24 - [place] 6 (3+3) in 9/12 cores. 30% core [...] URL [facility] [address] [place] [address]- [phone] Additional Instructions: referral to [facility] to discuss [...] zoste (more content not included)... Normal [facility] Comment on above: Result Comment: Elec tronically Signed By: Rufina VORA MD\.br\Date and Time Signed: 05/21/24 12:44 EDT\.br\Electronically Co-Signed By: Vesta Cortes\.br\Date and Time Co-Signed: 05/21/24 12:43 EDT Coding Summary.on 05-17-2024 Coding Summary. XQIBKcxr13ZXo4vUe+PG hl YWQ+ME1KXOQaV96txHYsrY 7xQ4UWMSoZEzmdAWSCZHuS QsTzgpCkLQ9zjJDwREJj IC8+KC2jVZRoPnqwzXSct4 X7aPT0V08qua5zIFmrmKD4 OJQiKuWgqlqfh4cimXl8XM cuNmluOyBt KNVhbA97SHZ0vC21Na89cW AhtSFvm9qfnZk7WmPeROGz ROO6sMtoLDhrm0UwGVIeS8 4nnZEfi1W3 DMBeuWydtTNmWjHnlTR5uJ 6mUQqafhofd0elybgrBnm8 uo22oGKyw0S1vHN3A3Dgzp O0EKBxiEGf HahbyCYXoU0yhbila2rsbl prXeNnHXFlYCm0DPr3KHRf qGswZwOrPL31FFR8DVMaky EhQ2EkTROc qBolAvV8j8J0Wn4LN7DIMh qlS4VOPFNABJosdMW+PC90 ha18J0ToNefgUji5KDXsUS E2gHP6kB0c GDNqORedv6F1oZB2G3Rxlo Vsyf4zx5uiVCJjJHqmV54l xNBtp1L2EBYnoPE2GXJxdT fiKiDuaP79 Oyc+TREmvXtqu0LqEjjzg5 iey1tnjHy4LpdsHUSuzgDc gBpkNLF2j8TjAc4iTKNtoR Z2oIF2wW3s PyCnLhM1DLbaF168BpZbzG GfVhfmS95rG0JfdDY+PHRy Ogq1RMHqgHeaYL0nR1BmPY RpbmctbGVm jTulSV8eAWThbcrcSYWtpT 3pEZOzZ7y0AcMfFfA8PVsf K6HeZGQrbupyWa02uR2oUg VfKhI3PStl O1UgxeK6JLUccGHeRMmvXY Y8V70yf4O4OBHvEALvXNO7 iWC2iC7xxRpfprkvhEXbdP sgdmVydGlj YNzrYZejF600NCDhqZpkTo NvZGluZyBEYXRlOiAgMDYv MjAvMjAyNDwvdGQ+PHRkIH R5jRkqKYZs mLYnDPetJl8qbYhmjSueKY 7bCUTdwpdlPBGzsI1kYMLm gNAroWhyCG8yNUNogxapd9 66IgQpVLL5 XCAsxNYwW1OpbW3uRaUeHY LoPDLcS0XytJVzNVnnI214 UGzhTwN6UCCatmBtI9UeGL FsaWduOiB0 m6Y6Go2Ms4AorjjrU2OirX YaAqJwFhheJEj0O6JbOuna dHI+SW34CDKaJM90IZt5FD X9sUytXBui JVUzJ9YmpE9zRlDaVLKzPX RkOyc+PHRhYmxlIHdpZHRo TEvfZMAnPaTalJqtPR1oPw 9yZGVyLWNv kOkefJBqIoXlo7tlEEIfDQ vtUY7apFzwG5HltBP8BSGb h5n7Xk38K34rJ1BwnSP+PG TsnPH5iHL7 cB3sEtDvDoI3FUioN943Vi KesDEzZgsra5ffd9xkaPb1 NsW0PEKcccRheLzzGGE0l0 OoKd98Q92z IHdpZHRoPSIxNSUiIHZhbG ksqu3zrW8cUw1+PGNvbCB3 uZA3tG2xBqFaHlE9HUksC5 49InRvcCIv Rjlnn9rfo9ggkHu3DxHwXI RcvhNjrLcrWIX0i3RlJx98 K6YobDjzi1YlNcc5ex25hW Fqc1A7xNZ9 F6TqXPSkydcqkNCsbLwqAO 9lYGYmbsmgZUZiiY8aQCHg N8o4DcVgMhB6TBgnH7Ssie M8QIRfwFKn BQKvuODRnJ2odyvlh3odvp boMuTuWKBcZWc6ECb2LVPg oXsvPpHkBID0AbS4BUN5sR RmoS4fzIxx jfiwnD4eGsd+JHD3eQElnY SIEY9qLdanuXY+PHRkIHN0 zGcbLGllDZNvbD9iJINjM5 l8JhCqRwA9 OLojM7MlwbP2UXAwxWMrEF KgqGLKqG7bhrnzg4wrnuil YzWvZXKuWLq2EXt7JYUkrZ duOiBsZWZ0 NrK1WWL1jAMfqI4yfHyrkk kwnJ3xLho+QmlydGggRGF0 LLi6R7AsTcr0GDHwuXxuTU 0ncGFkZGlu Zb0lfTkruRxlRG8xKNKyfh awa366LkWew6hxHFAcrSJf LSckOUY0C56ah6U4ODCgZX XtOOV6uQO6 eC4isYonfxykiDUhyIglds VduEdfWZlrXNffL356PHAq gOrbKpGvFEs9S3YgBzt5DJ ZfaGtrNT9i tKWpZLreUl4qaKapwKdnMA 2rESFxhzxxs569FtCyh8dl HYSpsLXgFSrnCZA9X28mk5 S6STZzLPJu AOE4zQY7hU8rmSfjyoecgM VmdDsgdmVydGljYWwtYWxp X200LZFbeGarHdAqsEy8L4 LiKye4SIGi rNhmVM9lkFGbCFewQk9ebY vdpQmuOQ7fMBGvuexqn743 CzJhk6hlEJGedRJzBMagAM Q6E34xq4U8 BXRsKQSsYLE2uMQ1yL6fsZ lnbjogbGVmdDsgdmVydGlj ENohRYnvK000CFWcgClfZt BhdGllbnQg ABuzXLg9W0XiUybsoJE+PC 36UTOxDN55gISpbMXqv2pb zCu5WmCxSLXdSRV0zDdaJF aba4NpIVHp K01waUIxx2I0JISatOrqfI CoPiVdoHG0fF6tTIaajhje q1ymadbfEvtju0ugnl56lU 58J09nPVqk ZHRoPSIzMCUiIHZhbGlnbj 9dbD0vBs0+XOIkcPS0eLR1 jX4sIVJpXaF2UEndB346Xk RvcCIvPjxj x7bnm2vbeNl1OxF2CKXwty VouFohYGH7i2XfBi34P40r IHdpZHRoPSIyMCUiIHZhbG eaqm3svA7t Ii8+RNAzlYD1bIK3gR7gOy OfGnN3GOhhW418LeLluYSl JfgqH16uA7MyrBR+PHRyPj r3XJNbkUbh JQ7rrIKcKPojXz2hTJB2Be RyIzJnOFdfT6BcERJuyhfx tzhdjWJ0OBEjWXVmmG60Tn 9udDogMTBw uXRQdE4hepekj3zjcnrnZc OsKUCaCMz8XGm0SWZqcBox WfYiOPS5FmT7XGV3lMIuyT 1hbGlnbjog zP0yF4RkRXEwdcjoUv34vN 0aPbPmDcI2NDtzHka+SE9Z RShmR4nHWAPWX9QCWPYnTu wvdGQ+PHRk OKB0tThsEUtzKRKenJ4tJW LfH4j3QvMsQsL3PEsnR9Lu BYNjnmlmCa76cJ7nYmBmLr I6BJxfJ1Ir olR3ITIqzOZgXVkbFWM0A3 9dl1B1NZLwBVVxJQF9pDX8 sX0msCxpkkpgsGDotCqchb VydGljYWwt EUacM912IORyhSbuLbU1Ja P0UeJ2BMe2T1WwOol6QVVj lDzaHM3hnYEtQBixEb6jtL jdwFwhKV9n CMSbhlkjZMStqM9fQFMymK PkoYvtOS2yRNCvgbovj673 XrHaGAZ7LVWzjJWwF3XcnR 9yOiAjMDAw KOPpK3KmlDKhBJsfZ045EY ylWuD4DUOtdbNwF8QcBCFm wXkaVkJ2b7O8Ss95JAUYZH FyczwvdGQ+ IEYnWKQ0jQuuOFcmUKXjoE 2fPZPlG5p0ZwBlDaJ6ISte H3PlXPQscpsxJw43cB8qFa RzKdK0CZkk L0JpwyL1HAMxpYTuGZnuFU R9W09mn4Y8VCDrTIPyGWE4 dQN9wD5drRtwwapoiXNgvJ sgdmVydGlj JIqsILvhQ388QMNzfRkcOk 7eoSK6F8UkKyo5MFVmjKvr UI6pwFRnTLzhCq5yeLkxrV veOH3sSUCl uqkzCFHbuC6jSCYsqSUhxQ ybPU6wCBRgzdycl167KiKe ZDE5ZVOvpBMiU9ZmkT9lCm AjMDAwMDAw Z9HfdWBbQMhdI299LHnnTo Q1SISaymUrH7YjKBEhjYlj WeP5a5W8Mf5GxSIgQMVeMF 23IU03LB65 Z0MwAksyzEWdqAY+PHRhYm xlIHdpZHRoPScxMDAlJyBz vCxxJM5eMg2eOXPbNRKevM xhcHNlOiBj k4zrBWOnKSdkIY4riSplZ8 IynSN7BOUcg9z2Ch62E72a V0GjlBF+PTXefZR9wHO3gA 5gXeRkYhG9 KQnsJ107YqGbfNXgCxloh4 kbt1ptqOk4TlJjRPTahaHn hEgmPOY6n6HkBp79X92iMV dpZHRoPSIy ROFeYXUajRxpaz6hqA1jJa 8+HYSztTV8rSL3lA0hMsFt LjM1RFiuK322MtKlxRLdEc bkS36cQ6Pt dXA+MQKgMbt7XWPcfAduOC 4nxRJnVBwwCw6vDGU7YfKa IvNgWJlnY2KpHZNhvsnxew jizCB5LMFe DANfrF08Ak3ovZzzOt5ePL ImMKX1EAHefFTjD2VzyM9o VpQbNQCtKEZhV0ZrhGAuLJ cpO177ANbp BuZ7NHQsblMbJ1ZdCPMscO jwVrA9y8C9Iy6UnUvapPMp QW4kRlOoOUd5J2FpDwo2MC NsgIbsCF9s kHIsPUgwBh7obNcerQujDU 2kWETrhubbs357SlZkz3rz YTKppPFnWXskHXM2A56gc0 R7XXOtAIMi ZFB6aGB0gD6iaMqsmvfjuF VmdDsgdmVydGljYWwtYWxp O332AFFevGonBrFNQeo2L5 PzQva3QGLu sLxtUX2kgQWvWAavRi6wsR nkdYxcFV2yEBAvrbbei636 VsKou8yySVGveGEfQYcdJH R4X44gu7X5 NQSvOGAuXEK2xZG7rM2onL lnbjogbGVmdDsgdmVydGlj UDtkZXemE139JHBfqXvbVg 0HShl9M6Co Hly6DYYsdNglTZ6osTUjZC hhHo2qiFmnfXcuVS9pOEPf vdjcr638IyVmh6miQKKnkT QgVGltZXM7 X32xa7Q3IFYsGRBcCXB6dM S6qC8wwOzmuqxwnDWnyRkm euOggRfvVLzgNLnyO217PN RvcDsnPlBh eWVyOjwvdGQ+PY16hw38R5 FxSvdrGcn7VLCmSCG9mET1 nW4lAXOxKYmsd8L0qYX7C7 CebxKlqt8j t8ohWUEtLUwnY (more content not included)... Normal [facility] Prostate Histology ([facility]) on 05-16-2024 Prostate Histology Diagnosis Info Invalid Interpretation Code [facility] Comment on above: Order Comment: left base [...] not identified. MicroScopic Description - E:Prostate,Left Lateral [place]:Needle Biopsy Interpretation - - Atypical glands suspicious but not diagnostic for adenocarcinoma. MicroScopic Description - F:Prostate,Left [place]:Needle Biopsy Interpretation - - Benign prostatic tissue. MicroScopic Description - G:Prostate,Right Base:Needle Biopsy Interpretation - - Benign prostatic tissue. MicroScopic Description - H:Prostate,Right Lateral Base:Needle Biopsy Interpretation - - Benign prostatic tissue. MicroScopic Description - I:Prostate,Right Mid:Needle Biopsy Interpretation - - Benign prostatic tissue. MicroScopic Description - J:Prostate,Right Lateral Mid:Needle Biopsy Interpretation - - Benign prostatic tissue. MicroScopic Description - K:Prostate,Right [place]:Needle Biopsy Interpretation - - Benign prostatic tissue. MicroScopic Description - L:Prostate,Right Lateral [place]:Needle Biopsy Interpretation - - Benign prostatic tissue. [...] Interpretation - - Acinar adenocarcinoma of prostate; [place] score 6(3+3); Tumor measures 0.1 cm in length; 25% of the core involved by tumor; 1 of 2 cores involved; Perineural invasion not identified. MicroScopic Description - Q:Prostate,Left [place]:Needle Biopsy Interpretation - - Acinar adenocarcinoma of prostate; [place] score 6(3+3); Tumor measures 0.1 cm in length; 3% of the core involved by tumor; 1 of 2 cores involved; MicroScopic Description - R:Prostate,Left [place]:Needle Biopsy Interpretation - - Benign prostatic tissue. [...] on: 05/16/2024 11:46:32 Performed By: #### 1 [id number] #### [facility] [address] [place] [address] Consent for Procedure/Surger yon 05-01-2024 Consent for Procedure/Surgery [id number] 0TIFF Normal [facility] Consent for Treatmenton -0 Consent for Treatment [id number]#1.0 0TIFF Normal [facility] IntraOperative Documentson 0 05-01-2024 IntraOperative Documents [id number] 0TIFF Normal [facility] Main OR Intraoperative Recor don 05-01-2024 Main OR Intraoperative Record IntraOp Document Type FTURO Summary Primary Physician: Rufina VORA MD Finalized Date/Time: 05/01/24 12:17:31 Pt. Name: MATEO STEARNS/Sex: 1960 Male Med Rec #: [id number] Physician: Rufina VORA MD Financial #: [id number] Pt. Type: O Room/Bed: / Admit/Disch: 05/01/24 [...] Diana Whitlock Role Performed Surgeon - Primary Wire Inspector - Primary Scrub - Primary Time In [...] By: Mara Wong RN 05/01/24 12:17 Normal [facility] Main OR Preoperative Recordo n 05-01-2024 Main OR Preoperative Record Holding Area Document Type FTURO Summary Primary Physician: Rufina VORA MD Finalized Date/Time: 05/01/24 11:27:32 Pt. Name: MATEO STEARNS/Sex: 1960 Male Med Rec #: [id number] Physician: Rufina VORA MD Financial #: [id number] Pt. Type: O Room/Bed: / Admit/Disch: 05/01/24 [...] MICA Kimball RN, Ruthann 05/01/24 11:27 Normal [facility] Operative Reporton Operative Report Patient: MATEO STEARNS [...] evaluation, 18 total biopsies were taken. Normal [facility] Comment on above: Result Comment: Elec tronically Signed By: DIONY CHANDLER, Rufina Bynum.brenda\Date and Time Signed: 05/01/24 12:04 EDT Outpatient Surgery Discharge Instructionon 05-01-2024 Outpatient Surgery Discharge Instruction [id number] 0TIFF Normal [facility] Patient Educationon 05-01-20 Patient Education Custom Transrectal [...] for your post-operative appointment in 1-2 weeks [phone] or [phone] Normal [facility] Prostate Histology ([facility]) on 05-01-2024 PH Method of Extraction Needle Biopsy Normal [facility] Comment on above: Order Comment: left base x 3 bites Left lateral mid x 3 bites Left apex x 4 bites Performed By: #### 1 [id number] #### [facility] [address] [place] [address] PH Number of Jars 3 Invalid Interpretation Code [facility] Comment on above: Order Comment: left base x 3 bites Left lateral mid x 3 bites Left apex x 4 bites Performed By: #### 1 [id number] #### [facility] [address] [place] [address] PH Specimen 1 L Apx Prostate Normal [facility] Comment on above: Order Comment: left base x 3 bites Left lateral mid x 3 bites Left apex x 4 bites Performed By: #### 1 [id number] #### [facility] [address] [place] [address] PH Specimen 10 R Lat Bse Prost Normal [facility] Comment on above: Order Comment: left base x 3 bites Left lateral mid x 3 bites Left apex x 4 bites Performed By: #### 1 [id number] #### [facility] [address] [place] [address] PH Specimen 11 R Lat Mid Prost Normal [facility] Comment on above: Order Comment: left base x 3 bites Left lateral mid x 3 bites Left apex x 4 bites Performed By: #### 1 [id number] #### [facility] [address] [place] [address] PH Specimen 12 R Lat Apx Prost Normal [facility] Comment on above: Order Comment: left base x 3 bites Left lateral mid x 3 bites Left apex x 4 bites Performed By: #### 1 [id number] #### [facility] [address] [place] [address] PH Specimen 2 L Base Prostate Normal [facility] Comment on above: Order Comment: left base x 3 bites Left lateral mid x 3 bites Left apex x 4 bites Performed By: #### 1 [id number] #### [facility] [address] [place] [address] PH Specimen 3 L Lat Apx Prost Normal [facility] Comment on above: Order Comment: left base x 3 bites Left lateral mid x 3 bites Left apex x 4 bites Performed By: #### 1 [id number] #### [facility] [address] [place] [address] PH Specimen 4 L Lat Bse Prost Normal [facility] Comment on above: Order Comment: left base x 3 bites Left lateral mid x 3 bites Left apex x 4 bites Performed By: #### 1 [id number] #### [facility] [address] [place] [address] PH Specimen 5 L Lat Mid Prost Normal [facility] Comment on above: Order Comment: left base x 3 bites Left lateral mid x 3 bites Left apex x 4 bites Performed By: #### 1 [id number] #### [facility] [address] [place] [address] PH Specimen 6 L Mid Prostate Normal [facility] Comment on above: Order Comment: left base x 3 bites Left lateral mid x 3 bites Left apex x 4 bites Performed By: #### 1 [id number] #### [facility] [address] [place] [address] PH Specimen 7 R Apx Prostate Normal [facility] Comment on above: Order Comment: left base x 3 bites Left lateral mid x 3 bites Left apex x 4 bites Performed By: #### 1 [id number] #### [facility] [address] [place] [address] PH Specimen 8 R Base Prostate Normal [facility] Comment on above: Order Comment: left base x 3 bites Left lateral mid x 3 bites Left apex x 4 bites Performed By: #### 1 [id number] #### [facility] [address] [place] [address] PH Specimen 9 R Mid Prostate Normal [facility] Comment on above: Order Comment: left base x 3 bites Left lateral mid x 3 bites Left apex x 4 bites Performed By: #### 1 [id number] #### [facility] [address] [place] [address] PH Type of Service Technical Only Normal [facility] Comment on above: Order Comment: left base x 3 bites Left lateral mid x 3 bites Left apex x 4 bites Performed By: #### 1 [id number] #### [facility] [address] [place] [address] Patient Educationon 01-02-20 Patient Education Oncology Transrectal [...] near your rectum, especially while sitting. ? Everly-colored urine due to small amounts of blood in your urine. ? A burning feeling while urinating. ? Blood in your stool (feces) or bleeding from your rectum. ? Blood in your semen. Follow these instructions at home: Medicines ? Take nhrn-dey-nzpucce and prescription medicines only as told by [...] provider. Document Revised: 05/10/2022 Document Reviewed: 05/10/2022 [employer] Patient Education ? 2022 [employer]. Transrectal Ultrasound-Guided Prostate Biopsy A transrectal ultrasound-guided [...] including vitamins, herbs, eye drops, creams, and okzi-kgl-biarkkg medicines. ? Any problems you or family [...] not included)... Normal [facility] Urology Office/Clinic Noteon 01-02-2024 Urology Office/Clinic Note [...] of prostate cancer. S/p TRUS/bx 05/17/23 - [place] score 6 (3+3) in 2 cores each [...] [facility] [address], [place] [phone] Additional Instructions: sched repeat TRUS/bx Patient Education [...] Father. I (more content not included)... Normal [facility] Comment on above: Result Comment: Elec tronically Signed By: Rufina VORA MD\.br\Date and Time Signed: 01/02/24 13:53 EST\.br\Electronically Co-Signed By: Vesta Cortes\.br\Date and Time Co-Signed: 01/02/24 13:52 EST [facility] 12-01-2023 Lab Reports [id number] 0TIFF Normal [facility] Ambulatory Visit Summaryon 0 06-06-2023 Ambulatory Visit Summary MATEO STEARNS :1960 Visit Date:06/06/2023 Ambulatory Visit Instructions Your Diagnosis Prostate cancer Sebaceous cyst Tests Performed Urnls Dip Stick Auto w/o Microscopy POC 76531 Your Care Team Attending Physician - Rufina [...] CHANDLER, Rufina Reina Where: [facility] [place] Normal [facility] Patient Educationon 06-06-20 23 Patient Education Oncology [...] under a microscope. This is called the [place] score and the total score can range from 6?10, indicating how likely it is that the cancer will spread (metastasize) to other parts of the body. The higher the score, the greater the likelihood that the cancer will spread. ? [place] 6 or lower: This indicates that the cancer cells look similar to normal prostate cells (well differentiated). ? [place] 7: This indicates that the cancer cells [...] external be (more content not included)... Normal [facility] Urology Office/Clinic Noteon 06-06-2023 Urology Office/Clinic Note [...] 04/08/23 - 4.46 S/p TRUS/bx 05/17/23 - [place] score 6 (3+3) in 2 cores each [...] [facility] [address], [place] [address] [phone] Additional Instructions: PSA and ANNE-MARIE Patient Education [...] Cigarettes, 02/07/2023 (more content not included)... Normal [facility] Comment on above: Result Comment: Elec tronically Signed By: Rufina VORA MD\.br\Date and Time Signed: 06/06/23 11:52 EDT\.br\Electronically Co-Signed By: Vesta Cortes\.br\Date and Time Co-Signed: 06/06/23 11:47 EDT PSA, FREE AND TOTAL RATIOon 04-13-2023 % Free PSA 12.1 % Normal [facility] Comment on above: Result Comment: The table [...] Performed By: #### H ISTGAL #### [facility] [address] [place] [address] Dr. James Crowley Prostate specific Ag [Mass/Vol] 3.4 ng/mL Normal 0.0-4.0 [facility] Comment on above: Result Comment: Rosa Elena khan ECLIA methodology. . According to the [place] [employer], Serum PSA should decrease and [...] Performed By: #### H ISTGAL #### [facility] [address] [place] [address] Dr. James Crowley PSA, Free 0.41 ng/mL Normal N/A [facility] Comment on above: Result Comment: Rosa Elena khan ECLIA methodology. Performed By: #### H ISTGAL #### [facility] [address] [place] [address] Dr. James Crowley CBC AUTO DIFFon 04-08-2023 BASO # 0.1 103/ul Normal 0.0-0.1 [facility] Comment on above: Performed By: #### C BC #### [facility] [address] [place] [address] Dr. James Crowley Basophils/100 WBC (Bld) 0.5 % Normal 0.2-2.0 [facility] Comment on above: Performed By: #### C BC #### [facility] [address] [place] [address] Dr. James Crowley EO # 0.1 103/ul Normal 0.0-0.7 [facility] Comment on above: Performed By: #### C BC #### [facility] [address] [address] [address] James Crowley Eosinophils/100 WBC (Bld) 1.3 % Normal 0.9-7.0 [facility] Comment on above: Performed By: #### C BC #### [facility] [address] [place] [address] Dr. James Crowley Erythrocyte distribution width (RBC) [Ratio] 13.5 % Normal 11.0-15.0 [facility] Comment on above: Performed By: #### C BC #### [facility] [address] [place] [address] Dr. James Crowley Hematocrit (Bld) [Volume fraction] 48.4 % Normal 42.0-54.0 [facility] Comment on above: Performed By: #### C BC #### [facility] [address] [place] [address] Dr. James Crowley Hemoglobin (Bld) [Mass/Vol] 15.6 g/dL Normal 14.0-18.0 [facility] Comment on above: Performed By: #### C BC #### [facility] [address] [place] [address] Dr. James Crowley IG # 0.08 10e3/ul Critically high 0.00-0.03 [facility] Comment on above: Performed By: #### C BC #### [facility] [address] [place] [address] Dr. James Crowley IG % 0.8 % Critically high 0.0-0.5 [facility] Comment on above: Performed By: #### C BC #### [facility] [address] [place] [address] Dr. James Crowley LYMPH # 3.1 103/ul Normal 1.2-3.8 [facility] Comment on above: Performed By: #### C BC #### [facility] [address] [place] [address] Dr. James Crowley Lymphocytes/100 WBC (Bld) 29.8 % Normal 20.5-60.0 [facility] Comment on above: Performed By: #### C BC #### [facility] [address] [place] [address] Dr. James Crowley MANUAL DIFF REQ NO Normal [facility] Comment on above: Performed By: #### C BC #### [facility] [address] [place] [address] Dr. James Crowley MCH (RBC) [Entitic mass] 29.3 pg Normal 25.9-34.0 [facility] Comment on above: Performed By: #### C BC #### [facility] [address] [place] [address] Dr. James Crowley MCHC (RBC) [Mass/Vol] 32.2 g/dL Normal 29.9-35.2 [facility] Comment on above: Performed By: #### C BC #### [facility] [address] [place] [address] Dr. James Crowley MCV (RBC) [Entitic vol] 90.8 fL Normal 80.0-94.0 [facility] Comment on above: Performed By: #### C BC #### [facility] [address] [place] [address] Dr. James Crowley MONO # 0.6 103/ul Normal 0.3-0.8 [facility] Comment on above: Performed By: #### C BC #### [facility] [address] [place] [address] Dr. James Crowley Monocytes/100 WBC (Bld) 5.9 % Normal 1.7-12.0 [facility] Comment on above: Performed By: #### C BC #### [facility] [address] [place] [address] Dr. James Crowley NEUT # 6.4 103/ul Normal 1.4-6.5 [facility] Comment on above: Performed By: #### C BC #### [facility] [address] [place] [address] Dr. James Crowley Neutrophils/100 WBC (Bld) 61.7 % Normal 43.0-75.0 [facility] Comment on above: Performed By: #### C BC #### [facility] [address] [place], [place] [address] Dr. James Crowley Platelet mean volume (Bld) [Entitic vol] 9.1 fL Critically low 9.5-13.5 [facility] Comment on above: Performed By: #### C BC #### [facility] [address] [place] [address] [address] James Crowley PLT 320 103/ul Normal 150-450 [facility] Comment on above: Performed By: #### C BC #### [facility] [address] [address] [address] James Crowley RBC 5.33 106/ul Normal 4.70-6.10 [facility] Comment on above: Performed By: #### C BC #### [facility] [address] [address] [address] James Crowley WBC 10.4 103/ul Normal 4.0-11.0 [facility] Comment on above: Performed By: #### C BC #### [facility] [address] [place] [address] CHEST W CONon [...] by: LEONOR MA Date: 2023-04-08 10:41 Normal [facility] LIPID PROFILEon 04-08-2023 CHOL-HDL RATIO NORM SEE BELOW Normal [facility] Comment on above: Result Comment: 3.3 - 4.4 LOW RISK 4.4 - 7.1 AVERAGE RISK 7.1 - 11.0 MODERATE RISK >11.0 HIGH RISK Performed By: #### U NEO, LIPID #### [facility] [address] [address] [address] James Crowley Cholesterol [Mass/Vol] 204 mg/dL Critically high <=200 [facility] [facility] Comment on above: Performed By: #### U NEO, LIPID #### [facility] [address] [address] [address] James Crowley Cholesterol in HDL [Mass/Vol] 55 mg/dL Normal 40-60 [facility] Comment on above: Performed By: #### U NEO, LIPID #### [facility] [address] [address] [address] James Crowley Cholesterol in LDL [Mass/Vol] 115.2 mg/dL Normal [facility] Comment on above: Performed By: #### U NEO, LIPID #### [facility] [address] [address] [address] James Crowley Cholesterol.total/C holesterol in HDL [Mass ratio] 3.7 {ratio} Normal [facility] Comment on above: Performed By: #### U NEO, LIPID #### [facility] [address] [address] [address] James Crowley HDL NORMAL > or = 60 mg/dl - LO W CARDIOVASCULAR RISK <40 mg/dl - HIGH CARDIOVASCULAR RISK Normal [facility] Comment on above: Performed By: #### U NEO, LIPID #### [facility] [address] [address] [address] James Crowley LDL CALC NORMAL SEE BELOW Normal [facility] Comment on above: Result Comment: <100 mg/dl OPTIMAL 100 - 129 mg/dl NEAR OR ABOVE OPTIMAL 130 - 159 mg/dl BORDERLINE HIGH 160 - 189 mg/dl HIGH >190 mg/dl VERY HIGH Performed By: #### U NEO, LIPID #### [facility] [address] [address] [address] James Crowley Triglyceride [Mass/Vol] 169 mg/dL Critically high <=150 [facility] Comment on above: Performed By: #### U NEO, LIPID #### [facility] [address] [address] [address] James Crowley VLDL CALC 33.8 mg/dL Normal [facility] Comment on above: Performed By: #### U NEO, LIPID #### [facility] [address] [address] [address] James Crowley PROF 14(COMP METB)on 023 Albumin [Mass/Vol] 3.7 g/dL Normal 3.4-5.0 [facility] Comment on above: Performed By: #### U NEO, LIPID #### [facility] [address] [address] [address] James Crowley Albumin/Globulin [Mass ratio] 0.9 {ratio} Normal [facility] Comment on above: Performed By: #### U NEO, LIPID #### [facility] [address] [address] [address] James Crowley ALP [Catalytic activity/Vol] 86 U/L Normal 46-116 [facility] Comment on above: Performed By: #### U NEO, LIPID #### [facility] [address] [address] [address] James Crowley ALT [Catalytic activity/Vol] 33 U/L Normal 16-63 [facility] Comment on above: Performed By: #### U NEO, LIPID #### [facility] [address] [address] [address] James Crowley Anion gap [Moles/Vol] 14.8 mmol/L Normal [facility] Comment on above: Performed By: #### U NEO, LIPID #### [facility] [address] [address] [address] James Crowley AST [Catalytic activity/Vol] 16 U/L Normal 15-37 [facility] Comment on above: Performed By: #### U NEO, LIPID #### [facility] [address] [address] [address] James Crowley Bilirubin [Mass/Vol] 0.7 mg/dL Normal 0.2-1.0 [facility] Comment on above: Performed By: #### U NEO, LIPID #### [facility] [address] [address] [address] James Crowley Calcium [Mass/Vol] 9.1 mg/dL Normal 8.5-10.1 [facility] Comment on above: Performed By: #### U NEO, LIPID #### [facility] [address] [address] [address] James Crowley Chloride [Moles/Vol] 107 mmol/L Normal 98-107 [facility] Comment on above: Performed By: #### U NEO, LIPID #### [facility] [address] [address] [address] James Crowley CO2 [Moles/Vol] 28.0 mmol/L Normal 21.0-32.0 [facility] Comment on above: Performed By: #### U NEO, LIPID #### [facility] [address] [address] [address] James Crowley Creatinine [Mass/Vol] 1.10 mg/dL Normal 0.70-1.30 [facility] Comment on above: Performed By: #### U NEO, LIPID #### [facility] [address] [place] [address] Dr. James Crowley EGFR-AF COOK ISLANDER >60 Normal >=60 [facility] Comment on above: Performed By: #### U NEO, LIPID #### [facility] [address] [place] [address] Dr. James Crowley EGFR-NON AF COOK ISLANDER >60 Normal >=60 [facility] Comment on above: Performed By: #### U NEO, LIPID #### [facility] [address] [address] [address] James Crowley Globulin (S) [Mass/Vol] 3.9 g/dL Normal [facility] Comment on above: Performed By: #### U NEO, LIPID #### [facility] [address] [address] [address] James Crowley Glucose [Mass/Vol] 98 mg/dL Normal 74-106 [facility] Comment on above: Performed By: #### U NEO, LIPID #### [facility] [address] [address] [address] James Crowley Potassium [Moles/Vol] 3.8 mmol/L Normal 3.5-5.1 [facility] Comment on above: Performed By: #### U NEO, LIPID #### [facility] [address] [place] [address] Dr. James Crowley Protein [Mass/Vol] 7.6 g/dL Normal 6.4-8.2 [facility] Comment on above: Performed By: #### U NEO, LIPID #### [facility] [address] [place] [address] Dr. James Crowley Sodium [Moles/Vol] 146 mmol/L Critically high 136-145 [facility] Comment on above: Performed By: #### U NEO, LIPID #### [facility] [address] [place] [address] Dr. James Crowley Urea nitrogen [Mass/Vol] 18.0 mg/dL Normal 7.0-18.0 [facility] Comment on above: Performed By: #### U NEO, LIPID #### [facility] [address] [place] [address] Dr. James Crowley Urea nitrogen/Creatinine [Mass ratio] 16.4 mg/mg Normal [facility] Comment on above: Performed By: #### U NEO, LIPID #### [facility] [address] [place] [address] Dr. James Crowley URIC ACID SERUMon 04-08-2023 Urate [Mass/Vol] 6.7 mg/dL Normal 3.5-7.2 [facility] Comment on above: Performed By: #### U NEO, LIPID #### [facility] [address] [address] CHEST WO CONon [...] MA Date: 2023-01-04 10:52 Normal [facility] CT CHEST WO CONon 10-07-2022 CT [...] by: LEONOR MA Date: 2022-10-07 16:05 Normal [facility] ACID FAST SMEAR AND CXon Acid Fast Culture Negative Normal [facility] Comment on above: Result Comment: No a tomi fast bacilli isolated after 6 weeks. Performed By: #### U NEO, LIPID #### [facility] [address] [address] [address] James Crowley Acid Fast Smear Negative Normal [facility] Comment on above: Performed By: #### U NEO, LIPID #### [facility] [address] [address] [address] James Crowley [employer] Specimen Processing Concentration Normal [facility] Comment on above: Performed By: #### U NEO, LIPID #### [facility] [address] [address] [address] James Crowley FUNGAL AB QUANTITAIVE DOUBLE IMMUNODIFFUon 08-22-2022 Aspergillus flavus Negative Normal Neg:<1:1 [facility] Comment on above: Performed By: #### F UNGUYI #### [facility] [address] [address] [address] James Crowley Aspergillus fumigatus Negative Normal Neg:<1:1 [facility] Comment on above: Performed By: #### F UNGUYI #### [facility] [address] [place] [address] Dr. James rCowley Aspergillus niger Negative Normal Neg:<1:1 [facility] Comment on above: Performed By: #### F UNGUYI #### [facility] [address] [place] [address] Dr. James Crowley Blastomyces Negative Normal Neg:<1:1 [facility] Comment on above: Performed By: #### F UNGUYI #### [facility] [address] [place] [address] Dr. James Crowley COXSACKIE B VIRUS ANTIBODIES on 08-21-2022 Coxsackie B-1 Ab Negative Normal Neg:<1:8 [facility] Comment on above: Performed By: #### C OXSBV #### [facility] [address] [place] [address] Dr. James Crowley Coxsackie B-2 Ab Negative Normal Neg:<1:8 [facility] Comment on above: Performed By: #### C OXSBV #### [facility] [address] [place] [address] Dr. aJmes Crowley coxsackie B-3 Ab Negative Normal Neg:<1:8 [facility] Comment on above: Performed By: #### C OXSBV #### [facility] [address] [place] [address] Dr. James Crowley Coxsackie B-4 Ab Negative Normal Neg:<1:8 [facility] Comment on above: Performed By: #### C OXSBV #### [facility] [address] [place] [address] Dr. James Crowley Coxsackie B-5 Ab Negative Normal Neg:<1:8 [facility] Comment on above: Performed By: #### C OXSBV #### [facility] [address] [place] [address] Dr. James Crowley Coxsackie B-6 Ab Negative Normal Neg:<1:8 [facility] Comment on above: Performed By: #### C OXSBV #### [facility] [address] [place] [address] Dr. James Crowley HISTOPLASMA CAP AB QUANT DID on 08-21-2022 Histoplasma Mycelial CF Ab. Negative Normal Neg:<1:2 [facility] Comment on above: Performed By: #### H ISTGAL #### [facility] [address] [place] [address] Dr. James Cleaningoplasma Yeast CF Ab Negative Normal Neg:<1:2 [facility] Comment on above: Performed By: #### H ISTGAL #### [facility] [address] [place] [address] Dr. James Crowley COX[place] A VIRUS AB IGMon 0 08-20-2022 [place] A16 IgM Negative Normal Neg:<1:10 [facility] Comment on above: Performed By: #### C OXSIGM #### [facility] [address] [place] [address] Dr. James Crowley [place] A24 IgM Negative Normal Neg:<1:10 [facility] Comment on above: Performed By: #### C OXSIGM #### [facility] [address] [place] [address] Dr. James Crowley [place] A7 IgM Negative Normal Neg:<1:10 [facility] Comment on above: Performed By: #### C OXSIGM #### [facility] [address] [place] [address] Dr. James Crowley [place] A9 IgM Negative Normal Neg:<1:10 [facility] Comment on above: Performed By: #### C OXSIGM #### [facility] [address] [place] [address] Dr. James Crowley HISTOPLASMA GALACTOMANNAN AG URINEon 08-20-2022 Histoplasma Gal'shwetha Ag <0.5 Normal <0.5 ng/mL [facility] Comment on above: Performed By: #### H ISTGAL #### [facility] [address] [place] [address] Dr. James Crowley QUANTIFERON TB GOLD PLUSon 0 08-20-2022 QuantiFERON Criteria Comment Normal [facility] Comment on above: Result Comment: Vick tiFERON-TB [...] Performed By: #### Q NTTB #### [facility] [address] [place] [address] Dr. James Crowley QuantiFERON Incubation Incubation performed. Normal [facility] Comment on above: Performed By: #### Q NTTB #### [facility] [address] [place] [address] Dr. James Crowley QuantiFERON Mitogen Value >10.00 Normal [facility] Comment on above: Performed By: #### Q NTTB #### [facility] [address] [place] [address] Dr. James Crowley QuantiFERON Nil Value 0.04 IU/mL Normal [facility] Comment on above: Performed By: #### Q NTTB #### [facility] [address] [place] [address] Dr. James Crowley QuantiFERON TB1 Ag Value 0.04 IU/mL Normal [facility] Comment on above: Performed By: #### Q NTTB #### [facility] [address] [place] [address] Dr. James Crowley QuantiFERON TB2 Ag Value 0.05 IU/mL Normal [facility] Comment on above: Performed By: #### Q NTTB #### [facility] [address] [place] [address] Dr. James Crowley QuantiFERON-TB Gold Plus Negative Normal Negative [facility] Comment on above: Result Comment: No r esponse to M tuberculosis antigens detected. Infection with M tuberculosis is unlikely, but high risk individuals should be considered for additional testing (ATS/IDSA/CDC Clinical Practice Guidelines, 2017). The reference range is an Antigen minus Nil result of <0.35 IU/mL. Chemiluminescence immunoassay methodology Performed By: #### Q NTTB #### [facility] [address] [place] [address] Dr. James Crowley CREATININEon 08-18-2022 Creatinine [Mass/Vol] 0.97 mg/dL Normal 0.70-1.30 [facility] Comment on above: Performed By: #### H ISTGAL #### [facility] [address] [place] [address] Dr. James Crowley EGFR-AF [place]OOK ISLANDER >60 Normal >=60 [facility] Comment on above: Performed By: #### H ISTGAL #### [facility] [address] [place] [address] Dr. James Crowley EGFR-NON AF [place]OOK ISLANDER >60 Normal >=60 [facility] Comment on above: Performed By: #### H ISTGAL #### [facility] [address] [place] [address] CHEST W CONon [...] MA Date: 2022-08-18 10:27 Normal [facility] CULTURE SPUTUMon 08-18-2022 CULTURE SPUTUM Isolate 1 Haemophilus parainfluenzae Moderate growth of Normal [facility] Comment on above: Result Comment: Beta -Lactamase: Negative Performed By: #### H ISTGAL #### [facility] [address] [address] [address] James Crowley SPUTUM GRAM STAINon 08-18-20 22 COMMENTS Normal [facility] Comment on above: Performed By: #### H ISTGAL #### [facility] [address] [address] [address] James Crowley DIPHTHEROIDS Normal [facility] Comment on above: Performed By: #### H ISTGAL #### [facility] [address] [address] [address] James Crowley EPITHELIALS <25 Normal [facility] Comment on above: Performed By: #### H ISTGAL #### [facility] [address] [address] [address] James Crowley FUNGAL ELEMENTS Normal The [facility] Comment on above: Performed By: #### H ISTGAL #### [facility] [address] [address] [address] James KAN NEG BACILLI Normal [facility] Comment on above: Performed By: #### H ISTGAL #### [facility] [address] [address] [address] James KAN NEG DIPPLOCOCCI FEW Normal [facility] Comment on above: Performed By: #### H ISTGAL #### [facility] [address] [place] [address] Dr. James KAN POS BACILLI Normal [facility] Comment on above: Performed By: #### H ISTGAL #### [facility] [address] [address] [address] Yilan Crowley GRAM POSITIVE COCCI FEW Normal [facility] Comment on above: Performed By: #### H ISTGAL #### [facility] [address] [address] [address] James Crowley WBC (Bld) [#/Vol] 10*3/uL Normal [facility] Comment on above: Performed By: #### H ISTGAL #### [facility] [address] [address] [address] James Crowley XR RIBS RT PA [...] CISNEROS Date: 2022-08-12 13:02 Normal [facility] Covid-19 PCR (CVDTB)on SARS-CoV-2 (COVID-19) RNA SOURAV+probe Ql (Unsp spec) Not detected Normal NOT DETECTED [facility] Comment on above: Result Comment: When [...] for this test is supported by the [place] [employer] of Health and Human Service's declaration that [...] used). Performed By: #### C TB #### [address] [address] Dr[address] James Rey 03-24-2021 L -- ---- Specimen: [id number] Received: 03/24/21 Status: BOSTON Dinah Num: [id number] Spec Type: Surgical Subm Dr: Bryan Quick MD Tissues: A Skin-Other than Cyst, tag, debridement or plastic repair (LT NASAL DORSUM) Procedures: HE Stain, Gross/Micro L4 ---- Patient Age/Sex Location Account Attending Physician ---- Mateo Stearns/Oj CÁRDENAS [id number] Bryan Quick MD ---- SPEC NUM: RECD: 03/24/21 STATUS: [place] MATHEWS NUM: [id number] FRANCISCA: 03/24/21 [facility] DR: Bryan Quick MD ENTERED: 03/24/21 [facility] DR: SPEC TYPE: Surgical DEPT: S [...] microscopic findings support the above pathologic diagnosis. [id number] ---- ---- Specimen: Received: 03/24/21 Status: [place] Dinah Num: [id number] Spec Type: Surgical Subm Dr: Bryan Quick MD Tissues: A Skin-Other than Cyst, tag, debridement or plastic repair (LT NASAL DORSUM) Procedures: HE Stain, Gross/Micro L4 ---- Patient: Mateo Stearns [id number] (Continued) ---- Signed (signature on file) Cindy Garcia MD 03/25/21 1824 [facility] Vital Signs Date Time Vital Sign Value Performing Clinician Facility 05-30-2025 [id number] Body height 170.2 cm Sadie Piper MD Work Phone: [email or web address] [facility] 05-30-2025 10:19-0400 Body mass index (BMI) [Ratio] 20.36 kg/m2 Sadie Piper MD Work Phone: [email or web address] [facility] 05-30-2025 10:19-0400 Body weight 58.97 kg Sadie Piper MD Work Phone: [facility] 05-30-2025 10:19-0400 Diastolic blood pressure 70 mm[Hg] Sadie Piper MD Work Phone: [email or web address] [facility] 05-30-2025 10:19-0400 Heart rate 81 /min [facility]per [facility] 05-30-2025 10:19-0400 Systolic blood pressure 141 mm[Hg] Sadie Piper MD Work Phone: [facility] 05-01-2025 13:41-0400 Heart rate 75 /min Sadie Piper MD Work Phone: [facility] 05-01-2025 13:41-0400 Respiratory rate 18 /min Sadie Piper MD Work Phone: [facility] 05-01-2025 13:41-0400 SaO2% (BldA) [Mass fraction] 95 % Sadie Piper MD Work Phone: [facility] 05-01-2025 11:15-0400 Body temperature 97.7 [degF] aSdie Piper MD Work Phone: [facility] 05-01-2025 11:15-0400 Diastolic blood pressure 82 mm[Hg] Sadie Piper MD Work Phone: [facility] 05-01-2025 11:15-0400 Systolic blood pressure 120 mm[Hg] Sadie Piper MD Work Phone: [facility] 05-01-2025 10:28-0400 Body height 170.2 cm Sadie Piper MD Work Phone: [facility] 05-01-2025 10:28-0400 Body mass index (BMI) [Ratio] 20.36 kg/m2 Sadie Piper MD Work Phone: [facility] 05-01-2025 10:28-0400 Body weight 58.97 kg Sadie Piper MD Work Phone: [facility] 04-30-2025 12:25-0400 Body temperature 98.6 [degF] Sadie Piper MD Work Phone: [facility] 04-30-2025 12:25-0400 SaO2% (BldA) [Mass fraction] 100.3 % Sadie Piper MD Work Phone: [facility] 03-07-2025 11:03-0400 Body height 170.2 cm Sadie Piper MD Work Phone: [facility] 03-07-2025 11:03-0400 Body mass index (BMI) [Ratio] 19.89 kg/m2 Sadie Piper MD Work Phone: [facility] 03-07-2025 11:03-0400 Body temperature 97.7 [degF] Sadie Piper MD Work Phone: [facility] 03-07-2025 11:03-0400 Body weight 57.61 kg Sadie Piper MD Work Phone: [facility] 03-07-2025 11:03-0400 Diastolic blood pressure 62 mm[Hg] Sadie Piper MD Work Phone: [facility] 03-07-2025 11:03-0400 Heart rate 80 /min Sadie Piper MD Work Phone: [facility] Comment on above: irregular 03-07-2025 11:03-0400 SaO2% (BldA) [Mass fraction] 97 % Sadie Piper MD Work Phone: [facility] 03-07-2025 11:03-0400 Systolic blood pressure 126 mm[Hg] Sadie Piper MD Work Phone: [facility] 12-12-2024 09:53-0500 Body mass index (BMI) [Ratio] 22.69 kg/m2 MEI Dent MD Work Phone: [facility] 12-12-2024 09:53-0500 Body temperature 98.71 [degF] MEI Dent MD Work Phone: [facility] 12-12-2024 09:53-0500 Body weight 65.7 kg MEI Dent MD Work Phone: [facility] 12-12-2024 09:53-0500 Diastolic blood pressure 88 mm[Hg] MEI Dent MD Work Phone: [facility] 12-12-2024 09:53-0500 Heart rate 81 /min MEI Dent MD Work Phone: [facility] 12-12-2024 09:53-0500 Respiratory rate 18 /min MEI Dent MD Work Phone: [facility] 12-12-2024 09:53-0500 SaO2% (BldA) [Mass fraction] 90 % MEI Dent MD Work Phone: [facility] 12-12-2024 09:53-0500 Systolic blood pressure 131 mm[Hg] MEI Dent MD Work Phone: [facility] 11-02-2024 10:33-0500 Body temperature 98.4 [degF] MEI Dent MD Work Phone: [facility] 11-02-2024 10:33-0500 Diastolic blood pressure 82 mm[Hg] MEI Dent MD Work Phone: [facility] 11-02-2024 10:33-0500 Heart rate 100 /min MEI Dent MD Work Phone: [facility] 11-02-2024 10:33-0500 Respiratory rate 18 /min MEI Dent MD Work Phone: [facility] 11-02-2024 10:33-0500 SaO2% (BldA) [Mass fraction] 97 % MEI Dent MD Work Phone: [facility] 11-02-2024 10:33-0500 Systolic blood pressure 118 mm[Hg] MEI Dent MD Work Phone: [facility] 10-29-2024 10:28-0500 Body mass index (BMI) [Ratio] 23.38 kg/m2 MEI Dent MD Work Phone: [facility] 10-29-2024 10:28-0500 Body temperature 97.9 [degF] MEI Dent MD Work Phone: [facility] 10-29-2024 10:28-0500 Body weight 67.7 kg MEI Dent MD Work Phone: [facility] 10-29-2024 10:28-0500 Diastolic blood pressure 84 mm[Hg] MEI Dent MD Work Phone: [facility] 10-29-2024 10:28-0500 Heart rate 81 /min MEI Dent MD Work Phone: [facility] 10-29-2024 10:28-0500 Respiratory rate 18 /min MEI Dent MD Work Phone: [facility] 10-29-2024 10:28-0500 SaO2% (BldA) [Mass fraction] 95 % MEI Dent MD Work Phone: [facility] 10-29-2024 10:28-0500 Systolic blood pressure 126 mm[Hg] MEI Dent MD Work Phone: [facility] 10-22-2024 10:26-0500 Body mass index (BMI) [Ratio] 23.34 kg/m2 MEI Dent MD Work Phone: [facility] 10-22-2024 10:26-0500 Body temperature 97.11 [degF] MEI Dent MD Work Phone: [facility] 10-22-2024 10:26-0500 Body weight 67.6 kg MEI Dent MD Work Phone: [facility] 10-22-2024 10:26-0500 Diastolic blood pressure 81 mm[Hg] MEI Dent MD Work Phone: [facility] 10-22-2024 10:26-0500 Heart rate 71 /min MEI Dent MD Work Phone: [facility] 10-22-2024 10:26-0500 Respiratory rate 18 /min MEI Dent MD Work Phone: [facility] 10-22-2024 10:26-0500 SaO2% (BldA) [Mass fraction] 91 % MEI Dent MD Work Phone: [facility] 10-22-2024 10:26-0500 Systolic blood pressure 127 mm[Hg] MEI Dent MD Work Phone: [facility] 10-16-2024 10:59-0500 Body height 175.3 cm Kathie Villanuevaosvaldoz [employer] Work Phone: [facility] 10-16-2024 10:59-0500 Body mass index (BMI) [Ratio] 22.21 kg/m2 Kathie Aichholz [employer] Work Phone: [facility] 10-16-2024 10:59-0500 Body temperature 98.01 [degF] Kathie Richhholz [employer] Work Phone: [facility] 10-16-2024 10:59-0500 Body weight 68.22 kg Kathie Richhholz [employer] Work Phone: [facility] 10-16-2024 10:59-0500 Diastolic blood pressure 78 mm[Hg] Kathie Aichholz [employer] Work Phone: [facility] 10-16-2024 10:59-0500 Heart rate 78 /min Kathie Richhholz [employer] Work Phone: [facility] 10-16-2024 10:59-0500 Respiratory rate 20 /min Kathie Aichholz [employer] Work Phone: [facility] 10-16-2024 10:59-0500 SaO2% (BldA) [Mass fraction] 92 % Kathie Richhholz [employer] Work Phone: [facility] 10-16-2024 10:59-0500 Systolic blood pressure 110 mm[Hg] Kathie Richhholz EQUINE VET Work Phone: [facility] 10-15-2024 10:45-0500 Body mass index (BMI) [Ratio] 23.45 kg/m2 MEI Dent MD Work Phone: [facility] 10-15-2024 10:45-0500 Body temperature 97.81 [degF] MEI Dent MD Work Phone: [facility] 10-15-2024 10:45-0500 Body weight 67.9 kg MEI Dent MD Work Phone: [facility] 10-15-2024 10:45-0500 Diastolic blood pressure 81 mm[Hg] MEI Dent MD Work Phone: [facility] 10-15-2024 10:45-0500 Heart rate 87 /min MEI Dent MD Work Phone: [facility] 10-15-2024 10:45-0500 Respiratory rate 16 /min MEI Dent MD Work Phone: [facility] 10-15-2024 10:45-0500 SaO2% (BldA) [Mass fraction] 95 % MEI Dent MD Work Phone: [facility] 10-15-2024 10:45-0500 Systolic blood pressure 121 mm[Hg] MEI Dent MD Work Phone: [facility] 10-08-2024 10:34-0500 Body mass index (BMI) [Ratio] 23.69 kg/m2 MEI Dent MD Work Phone: [facility] 10-08-2024 10:34-0500 Body temperature 96.69 [degF] MEI Dent MD Work Phone: [facility] 10-08-2024 10:34-0500 Body weight 68.6 kg MEI Dent MD Work Phone: [facility] 10-08-2024 10:34-0500 Diastolic blood pressure 76 mm[Hg] MEI Dent MD Work Phone: [facility] 10-08-2024 10:34-0500 Heart rate 103 /min MEI Dent MD Work Phone: [facility] 10-08-2024 10:34-0500 Respiratory rate 18 /min MEI Dent MD Work Phone: [facility] 10-08-2024 10:34-0500 SaO2% (BldA) [Mass fraction] 90 % MEI Dent MD Work Phone: [facility] 10-08-2024 10:34-0500 Systolic blood pressure 165 mm[Hg] MEI Dent MD Work Phone: [facility] 10-01-2024 10:42-0500 Body mass index (BMI) [Ratio] 23.34 kg/m2 MEI Dent MD Work Phone: [facility] 10-01-2024 10:42-0500 Body temperature 97.9 [degF] MEI Dent MD Work Phone: [facility] 10-01-2024 10:42-0500 Body weight 67.6 kg MEI Dent MD Work Phone: [facility] 10-01-2024 10:42-0500 Diastolic blood pressure 83 mm[Hg] MEI Dent MD Work Phone: [facility] 10-01-2024 10:42-0500 Heart rate 99 /min MEI Dent MD Work Phone: [facility] 10-01-2024 10:42-0500 Respiratory rate 18 /min MEI Dent MD Work Phone: [facility] 10-01-2024 10:42-0500 SaO2% (BldA) [Mass fraction] 87 % MEI Dent MD Work Phone: [facility] Comment on above: Wearing mask, Normal for him with mask o n 10-01-2024 10:42-0500 Systolic blood pressure 129 mm[Hg] MEI Dent MD Work Phone: [facility] 09-25-2024 14:15-0400 Body mass index (BMI) [Ratio] 23.17 kg/m2 MEI Dent MD Work Phone: [facility] 09-25-2024 14:15-0400 Body weight 67.1 kg MEI Dent MD Work Phone: [facility] 09-13-2024 10:27-0400 Body height 175.3 cm Kathie Sánchez NP Work Phone: [facility] 09-13-2024 10:27-0400 Body mass index (BMI) [Ratio] 21.8 kg/m2 Kathie Sánchez EQUINE VET Work Phone: [facility] 09-13-2024 10:27-0400 Body temperature 98.4 [degF] Kathie Sánchez EQUINE VET Work Phone: [facility] 09-13-2024 10:27-0400 Body weight 66.95 kg Kathie Sánchez EQUINE VET Work Phone: [facility] 09-13-2024 10:27-0400 Heart rate 96 /min Kathie Minayamatias EQUINE VET Work Phone: [facility] 09-13-2024 10:27-0400 Respiratory rate 10 /min Kathie Sánchez EQUINE VET Work Phone: [facility] 09-13-2024 10:27-0400 SaO2% (BldA) [Mass fraction] 97 % Kathie Sánchez EQUINE VET Work Phone: [facility] 09-11-2024 13:33-0400 Body mass index (BMI) [Ratio] 23.51 kg/m2 MEI Dent MD Work Phone: [facility] 09-11-2024 13:33-0400 Body temperature 97.81 [degF] MEI Dent MD Work Phone: [facility] 09-11-2024 13:33-0400 Body weight 68.1 kg MEI Dent MD Work Phone: [facility] 09-11-2024 13:33-0400 Diastolic blood pressure 82 mm[Hg] MEI Dent MD Work Phone: [facility] 09-11-2024 13:33-0400 Heart rate 80 /min MEI Dent MD Work Phone: [facility] 09-11-2024 13:33-0400 Respiratory rate 18 /min MEI Dent MD Work Phone: [facility] 09-11-2024 13:33-0400 SaO2% (BldA) [Mass fraction] 94 % MEI Dent MD Work Phone: [facility] 09-11-2024 13:33-0400 Systolic blood pressure 146 mm[Hg] MEI Dent MD Work Phone: [facility] 07-12-2024 13:06-0400 Body mass index (BMI) [Ratio] 23.41 kg/m2 MEI Dent MD Work Phone: [facility] 07-12-2024 13:06-0400 Body temperature 98.1 [degF] MEI Dent MD Work Phone: [facility] 07-12-2024 13:06-0400 Body weight 67.8 kg MEI Dent MD Work Phone: [facility] 07-12-2024 13:06-0400 Diastolic blood pressure 83 mm[Hg] MEI Dent MD Work Phone: [facility] 07-12-2024 13:06-0400 Heart rate 95 /min MEI Dent MD Work Phone: [facility] 07-12-2024 13:06-0400 Respiratory rate 18 /min MEI Dent MD Work Phone: [facility] 07-12-2024 13:06-0400 SaO2% (BldA) [Mass fraction] 95 % MEI Dent MD Work Phone: [facility] 07-12-2024 13:06-0400 Systolic blood pressure 157 mm[Hg] MEI Dent MD Work Phone: [facility] 06-21-2024 13:13-0400 Body height 170.2 cm MEI Dent MD Work Phone: [facility] 06-21-2024 13:13-0400 Body mass index (BMI) [Ratio] 23.41 kg/m2 MEI Dent MD Work Phone: [facility] 06-21-2024 13:13-0400 Body temperature 97.5 [degF] MEI Dent MD Work Phone: [facility] 06-21-2024 13:13-0400 Body weight 67.8 kg MEI Dent MD Work Phone: [facility] 06-21-2024 13:13-0400 Diastolic blood pressure 75 mm[Hg] MEI Dent MD Work Phone: [facility] 06-21-2024 13:13-0400 Heart rate 86 /min MEI Dent MD Work Phone: [facility] 06-21-2024 13:13-0400 Respiratory rate 20 /min MEI Dent MD Work Phone: [facility] 06-21-2024 13:13-0400 SaO2% (BldA) [Mass fraction] 95 % MEI Dent MD Work Phone: [facility] 06-21-2024 13:13-0400 Systolic blood pressure 124 mm[Hg] MEI Dent MD Work Phone: [facility] 06-01-2024 13:13-0400 Body height 175.3 cm Amandeep Crisostomo MD Work Phone: [facility] 06-01-2024 13:13-0400 Body mass index (BMI) [Ratio] 22.14 kg/m2 Amandeep Crisostomo MD Work Phone: [facility] 06-01-2024 13:13-0400 Body weight 68 kg Amandeep Crisostomo MD Work Phone: [facility] 06-01-2024 13:13-0400 Diastolic blood pressure 81 mm[Hg] Amandeep Crisostomo MD Work Phone: [facility] 06-01-2024 13:13-0400 Heart rate 88 /min Amandeep Crisostomo MD Work Phone: [facility] 06-01-2024 13:13-0400 Systolic blood pressure 138 mm[Hg] Amandeep Crisostomo MD Work Phone: [facility] 05-21-2024 11:35-0400 Blood Pressure Location Rufina VORA [facility] 05-21-2024 11:35-0400 Body temperature 98.6 [degF] Rufina VORA [facility] 05-21-2024 11:35-0400 Diastolic blood pressure 84 mm[Hg] Rufina VORA [facility] 05-21-2024 11:35-0400 Heart rate 76 /min Rufina VORA [facility] 05-21-2024 11:35-0400 Respiratory rate 16 /min Rufina VORA [facility] 05-21-2024 11:35-0400 Systolic blood pressure 139 mm[Hg] Rufina VORA [facility] 06-06-2023 10:36-0400 Blood Pressure Location Rufina VORA [facility] 06-06-2023 10:36-0400 Diastolic blood pressure 76 mm[Hg] Rufina VORA [facility] 06-06-2023 10:36-0400 Heart rate 72 /min Rufina VORA [facility] 06-06-2023 10:36-0400 Respiratory rate 16 /min Rufina VORA [facility] 06-06-2023 10:36-0400 Systolic blood pressure 130 mm[Hg] Rufina VORA [facility] 02-07-2023 12:42-0400 Blood Pressure Location Rufinamichelle VORA [facility] 02-07-2023 12:42-0400 Diastolic blood pressure 77 mm[Hg] Rufina VORA [facility] 02-07-2023 12:42-0400 Heart rate 74 /min Rufina VORA [facility] 02-07-2023 12:42-0400 Systolic blood pressure 138 mm[Hg] Rufina VORA [facility] 05-17-2022 12:56-0400 Blood Pressure Location Rufinamichelle VORA [facility] 05-17-2022 12:56-0400 Diastolic blood pressure 87 mm[Hg] Rufinamicehlle VORA [facility] 05-17-2022 12:56-0400 Heart rate 79 /min Rufinamichelle VORA [facility] 05-17-2022 12:56-0400 Respiratory rate 16 /min Rufinamichelle VORA [facility] 05-17-2022 12:56-0400 Systolic blood pressure 139 mm[Hg] Rufina VORA [facility] Encounters Encounter Date Encounter Type Care Provider Facility Start: 06-05-2025 End: 06-05-2025 Clinisync Result Encounter Generic External Data Provider [facility] External Department Unsolicited Start: 06-05-2025 End: 06-05-2025 Clinisync Result Encounter Generic External Data Provider [facility] External Department Unsolicited Start: 05-30-2025 End: 05-30-2025 ambulatory [facility] Start: 05-30-2025 End: 05-30-2025 Office outpatient visit 25 minutes Sadie Piper MD Work Phone: [facility] Comment on above: 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); Aneurysm of descending thoracic aorta without rupture Start: 05-27-2025 End: 05-27-2025 ambulatory [facility] Start: 05-08-2025 End: 05-08-2025 ambulatory [facility] Start: 05-02-2025 End: 05-02-2025 ambulatory [facility] Start: 04-30-2025 End: 05-01-2025 ambulatory [facility] Start: 04-30-2025 End: 05-01-2025 Evaluation and management of inpatient Sadie Piper MD Work Phone: [facility] Start: 04-17-2025 End: 04-17-2025 Evaluation and management of inpatient [facility] Start: 04-16-2025 End: 04-17-2025 Admission to [facility] Phone Call Provider 4 [facility] Start: 04-11-2025 End: 04-11-2025 Telephone encounter Carol Meyers NP Work Phone: [facility] Start: 04-06-2025 Evaluation and manag ement of inpatient [facility] Start: 04-05-2025 Evaluation and manag ement of inpatient [facility] Start: 04-05-[address] [facility] Start: 04-05-2025 End: 04-06-2025 Evaluation and management of inpatient [facility] Start: 04-04-2025 End: 04-04-2025 Clinisync Result Encounter [...] Evaluation and management of inpatient [facility] Start: 03-26-2025 End: 03-27-2025 Admission to [facility] Phone Call Provider 3 [facility] Start: 03-15-2025 End: 03-15-2025 ambulatory [facility] Start: 03-15-2025 End: 03-15-2025 Encounter for preprocedural cardiovascular examination [facility] Start: 03-12-2025 ambulatory [facility] Start: 03-07-2025 End: 03-07-2025 Office outpatient new 45 minutes Sadie Piper MD Work Phone: [facility] Comment on above: 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) Start: 03-07-2025 End: 03-07-2025 ambulatory SADIE PIPER [facility] Start: 02-24-2025 End: 02-25-2025 Clinisync [...] 02-22-2025 End: 02-22-2025 Telephone encounter Kathie Princess EQUINE VET Work Phone: [facility] Comment on above: Nausea (Primary Dx) Start: 02-11-2025 End: 02-11-2025 Clinisync Result Encounter Generic External Data Provider [facility] External Department Unsolicited Start: 02-11-2025 End: 02-11-2025 Clinisync Result Encounter Generic External Data Provider [facility] External Department Unsolicited Start: 01-18-2025 End: 01-18-2025 ambulatory Rufina VORA Facility:[facility] Start: 01-18-2025 End: 01-18-2025 Patient encounter procedure Rufina VORA [facility] Start: 01-11-2025 End: 01-11-2025 ambulatory Rufina VORA Facility:[facility] Start: 01-11-2025 End: 01-11-2025 Patient encounter procedure Rufina VORA [facility] Start: 01-02-2025 End: 01-02-2025 Bamboo flowsheet Karen Valdovinos DO Work Phone: [facility] Start: 01-02-2025 End: 01-02-2025 Bamboo flowsheet Karen Valdovinos DO Work Phone: [facility] Start: 01-02-2025 End: 01-02-2025 ambulatory KAREN VALDOVINOS Not Available Start: 12-12-2024 End: 12-12-2024 ambulatory Severo DENT Facility:[facility] Start: 12-12-2024 End: 12-12-2024 Patient encounter procedure [...] 11-02-2024 End: 11-02-2024 ambulatory Severo DENT Facility:[facility] Start: 11-01-2024 End: 11-01-2024 ambulatory Severo DENT Facility:[facility] Start: 10-31-2024 End: 10-31-2024 ambulatory Severo DENT Facility:[facility] Start: 10-30-2024 End: 10-30-2024 ambulatory Severo DENT Facility:[facility] Start: 10-29-2024 End: 10-29-2024 Patient encounter procedure Severo Dent MD Work Phone: [facility] Comment on above: Malignant neoplasm o f prostate (HCC) (Primary Dx) Start: 10-29-2024 End: 10-29-2024 ambulatory Severo DENT Facility:[facility] Start: 10-26-2024 End: 10-26-2024 Social Work [facility] Hematology/Oncology Start: 10-24-2024 End: 10-24-2024 ambulatory Severo GOPAL ENGGÉNESIS Facility:[facility] Start: 10-23-2024 End: 10-23-2024 ambulatory Severo DENT Facility:[facility] Start: 10-22-2024 End: 10-22-2024 Patient encounter procedure Severo Dent MD Work Phone: [facility] Comment on above: Malignant neoplasm o f prostate (HCC) (Primary Dx) Start: 10-22-2024 End: 10-22-2024 ambulatory Severo PEREZLatosha Facility:[facility] Start: 10-21-2024 End: 10-21-2024 ambulatory Severo DENT Facility:[facility] Start: 10-19-2024 End: 10-19-2024 ambulatory [facility] Facility:[facility] Start: 10-18-2024 End: 10-18-2024 ambulatory [facility] Facility:[facility] Start: 10-17-2024 End: 10-17-2024 ambulatory Severo DENT Facility:[facility] Start: 10-16-2024 End: 10-16-2024 Bamboo flowsheet Kathie Sánchez NP Work Phone: [facility] Start: 10-16-2024 End: 10-16-2024 Bamboo flowsheet Kathie Sánchez EQUINE VET Work Phone: [facility] Start: 10-16-2024 End: 10-16-2024 Office outpatient visit 15 minutes Kathie Sánchez NP Work Phone: [facility] Comment on above: DDD (degenerative di sc disease), cervical (Primary Dx); Atrial fibrillation (CMS/HCC); Gastro-esophageal reflux disease without esophagitis; Prostate cancer (CMS/HCC) Start: 10-16-2024 End: 10-16-2024 ambulatory Severo DENT Facility:[facility] Start: 10-15-2024 End: 10-15-2024 Patient encounter procedure Severo Dent MD Work Phone: [facility] Comment on above: Malignant neoplasm o f prostate (HCC) (Primary Dx) Start: 10-15-2024 End: 10-15-2024 ambulatory Severo GOPAL DENT Facility:[facility] Start: 10-12-2024 End: 10-12-2024 ambulatory Severo GOPAL DENT Facility:[facility] Start: 10-11-2024 End: 10-11-2024 Clinisync Result Encounter Generic External Data Provider [facility] External Department Unsolicited Start: 10-11-2024 End: 10-11-2024 Clinisync Result Encounter Generic External Data Provider [facility] External Department Unsolicited Start: 10-11-2024 End: 10-11-2024 Patient encounter procedure [facility] Work Phone: [facility] Comment on above: Malignant neoplasm o f prostate (HCC) Start: 10-11-2024 End: 10-11-2024 ambulatory Severo GOPAL DENT Facility:[facility] Start: 10-10-2024 End: 10-10-2024 ambulatory Severo GOPAL DENT Facility:[facility] Start: 10-09-2024 End: 10-09-2024 ambulatory Severo GOPAL DENT Facility:[facility] Start: 10-08-2024 End: 10-08-2024 Patient encounter procedure Severo Dent MD Work Phone: [facility] Comment on above: Malignant neoplasm o f prostate (HCC) (Primary Dx) Start: 10-08-2024 End: 10-08-2024 ambulatory Severo DENT Facility:[facility] Start: 10-05-2024 End: 10-05-2024 ambulatory Severo DENT Facility:[facility] Start: 10-04-2024 End: 10-05-2024 ambulatory KATHIE SÁNCHEZ Facility:[facility] Start: 10-04-2024 End: 10-04-2024 Patient encounter procedure [facility] Work Phone: [facility] Comment on above: Malignant neoplasm o f prostate (HCC) Start: 10-04-2024 End: 10-04-2024 Clinisync Result Encounter Generic External Data Provider [facility] External Department Unsolicited Start: 10-04-2024 End: 10-04-2024 Clinisync Result Encounter Generic External Data Provider [facility] External Department Unsolicited Start: 10-03-2024 End: 10-03-2024 ambulatory Severo GOPAL CHRISLatosha Facility:[facility] Start: 10-02-2024 End: 10-02-2024 ambulatory Severo DENT Facility:[facility] Start: 10-01-2024 End: 10-01-2024 Patient encounter procedure Severo Dent MD Work Phone: [facility] Comment on above: Malignant neoplasm o f prostate (HCC) (Primary Dx) Start: 10-01-2024 End: 10-01-2024 ambulatory Severo GOPAL DENT Facility:[facility] Start: 09-28-2024 End: 09-28-2024 ambulatory Severo GOPAL ENGGÉNESIS Facility:[facility] Start: 09-27-2024 End: 09-27-2024 ambulatory Severo POTTSJESSA DENT Facility:[facility] Start: 09-26-2024 End: 09-26-2024 ambulatory Severo PEREZLatosha Facility:[facility] Start: 09-25-2024 End: 09-25-2024 Social Work Umu [...] 09-17-2024 End: 09-18-2024 ambulatory Severo DENT Facility:[facility] Start: 09-17-2024 End: 09-27-2024 Patient encounter procedure Severo Dent MD Work Phone: [facility] Comment on above: Malignant neoplasm o f prostate (HCC) (Primary Dx) Start: 09-14-2024 End: 09-14-2024 Telephone encounter G Gopal Dent MD Work Phone: [facility] Comment on above: Financial Questions Start: 09-13-2024 End: 09-13-2024 Bamboo flowsheet Kathie Princess EQUINE VET Work Phone: [facility] Start: 09-13-2024 End: 09-13-2024 Bamboo flowsheet Ktahie Princess EQUINE VET Work Phone: [facility] Start: 09-13-2024 End: 09-13-2024 Office outpatient visit 15 minutes Kathie Sánchez EQUINE VET Work Phone: [facility] Comment on [...] 07-12-2024 End: 07-12-2024 ambulatory Severo DENT Facility:[facility] Start: 07-12-2024 End: 07-12-2024 Patient encounter procedure Severo Dent MD Work Phone: [facility] Comment on above: Malignant neoplasm o f prostate (HCC) (Primary Dx) Start: 06-21-2024 End: 06-21-2024 ambulatory RUFINA VORA Facility:[facility] Start: 06-21-2024 End: 06-21-2024 Patient encounter procedure [...] encounter procedure Rufina VORA [facility] Start: 05-01-2024 End: 05-01-2024 ambulatory Rufina VORA Facility:[facility] Start: 05-01-2024 End: 05-01-2024 Patient encounter procedure Rufina VORA [facility] Start: 02-28-2024 Patient encounter procedure Generic Provider [facility] Start: 02-28-2024 End: 02-28-2024 ambulatory KATHIE SNÁCHEZ Not Available Start: 01-05-2024 Clinisync Result Encounter Gen rayray External Data Provider [facility] External Department Unsolicited Start: 01-05-2024 Clinisync Result Encounter Gen rayray External Data Provider [facility] External Department Unsolicited Start: 01-02-2024 End: 01-02-2024 ambulatory Rufina VORA Facility:[facility] Start: 07-22-2023 ambulatory Rufina VORA Facili ty:[facility] Start: 06-06-2023 End: 06-06-2023 ambulatory Rufina VORA Facility:[facility] Start: 06-06-2023 End: 06-06-2023 Patient encounter procedure Rufina VORA [facility] Start: 05-17-2023 End: 05-17-2023 Patient encounter procedure Rufina VORA [facility] Start: 04-12-2023 End: 04-13-2023 ambulatory [employer] KATHIE AICHHOLZ Facility:[facility] Start: 04-08-2023 End: 04-09-2023 ambulatory [employer] KATHIE AICHHOLZ Facility:[facility] Start: 02-07-2023 End: 02-07-2023 Patient encounter procedure Rufina VORA [facility] Start: 01-04-2023 End: 01-05-2023 ambulatory [employer] KATHIE AICHHOLZ Facility:[facility] Start: 10-07-2022 End: 10-08-2022 ambulatory [employer] KATHIE AICHHOLZ Facility:[facility] Start: 08-18-2022 End: 08-19-2022 ambulatory ROBERTO JOSELYN . Facility:[facility] Start: 08-12-2022 End: 08-12-[address] ELSA RAE . Facility:[facility] Start: 07-20-2022 End: 08-11-2022 Pre-admission assessment Rufina VORA [facility] Start: 05-17-2022 End: 06-16-2022 Pre-admission assessment Rufina VORA [facility] Start: 05-17-2022 End: 05-17-2022 Patient encounter procedure Rufina VORA [facility] Start: 05-03-2022 End: 05-03-2022 ambulatory ROBERTO ALVES . Facility: Start: 03-24-2021 End: 03-24-2021 Departed Referred Bryan Quick Work Phone: [facility] [place] Procedures Date Procedure Procedure Detail Performing Clinician [...] above: Performed By: #### T SC #### [facility] ([facility]) [address] [place] [address] VIR Start: 04-30-2025 Blood typing serolog ic [...] External Data Provider Start: 04-08-2023 PSA screening [employer] KAHTIE PRINCESS Comment on above: Performed By: #### P SAS #### [facility] [address] [place] [address] Dr. James Crowley Start: 10-19-2022 Colonoscopy Generic Pr ovider Start: 10-15-2020 Colonoscopy Sadie yang MD Work Phone: Colonoscopy Rufina VORA Procedure on foot Rufina LAKESHA LEON Repair of hip Rufina VORA Comment on above: Both hips Both hips Transrectal needle biopsy of prostate Rufina VORA Plan of Treatment Date Care Activity Detail Author Start: 10-19-2032 Screening for malign ant neoplasm of colon [facility] Start: 03-11-2031 DTaP,Tdap and Td Vaccines (2 - Td or Tdap) DTaP,Tdap and Td Vaccines (2 - Td or Tdap) [facility] Start: 03-11-2031 Urine microalbumin profile DTaP,Tdap,Td Vaccine (2 - Td or Tdap) [facility] Start: 10-15-2030 Screening for malign ant neoplasm of colon Colonoscopy [facility] Start: 12-05-2029 Prostate specific antigen measurement Prostate Cancer Screening Discussion [facility] Start: 09-07-2029 Prostate specific antigen measurement Prostate Cancer Screening Discussion [facility] Start: 05-27-2026 Tobacco Screening Tobacco Screening [facility] Start: 05-01-2026 Adult BMI Screening Adult BMI Screen ing [facility] Start: 05-01-2026 Depression Screening Depression Scre ening [facility] Start: 03-27-2026 Tobacco Screening Tobacco Screening [facility] Start: 03-07-2026 Adult BMI Screening Adult BMI Screen ing [facility] Start: 03-07-2026 Tobacco Screening Tobacco Screening [facility] Start: 07-29-2025 Influenza vaccination Influenza Vacc ine [facility] Start: 06-12-2025 End: 06-12-2025 ambulatory 06/12/2025 11:00 AM EDT Visit (SP) Office Hematology/Oncology [address] [place] [address] Cat Baker, [employer]IRS[employer]ING STUDDER.[employer] [address] [place] [address] survivorship Hematology/Oncology Comment on above: survivorship Start: 06-12-2025 End: 06-12-2025 Patient encounter procedure 06/12/2025 10:30 AM EDT Office Visit Rad[facility] Oncology [address] [place] [address] Severo Dent MD [address] [place] [address] 6 month Follow up [facility] Comment on above: 6 month Follow up Start: 06-11-2025 End: 09-10-2025 Prostate specific Ag [Mass/volume] in Serum or Plasma PROSTATE-SPECIFIC ANTIGEN DIAGNOSTIC Lab Routine Malignant neoplasm of prostate (HCC) Expected: 06/11/2025 (Approximate), Expires: 09/10/2025 [facility] Work Phone: Comment on above: Expected: 06/11/2025 (Approximate), Expires: 09/10/2025 Start: 05-30-2025 End: 05-30-2025 Patient encounter procedure 05/30/2025 10:00 AM EDT Office Visit [facility] [address] [place] [id number] Sadie Piper MD [address] [address] [address] [facility] Start: 05-27-2025 End: 05-27-2025 Patient encounter procedure 05/27/2025 11:30 AM EDT Appointment [facility] Imaging [address] [place] [address] Sadie Piper MD [address] [place] [address] [facility] Imaging Start: 05-09-2025 End: 05-09-2025 Patient encounter procedure [facility] Start: 05-06-2025 End: 05-06-2025 Patient encounter procedure 05/06/2025 11:30 AM EDT Appointment [facility] - CT Imaging [address] [place] [address] Sadie Piper MD [address] [place] [address] [facility] - [facility] Imaging Start: 04-30-2025 End: 04-30-2025 Admission to same day surgery center 04/30/2025 11:30 AM EDT - 04/30/2025 2:15 PM EDT Surgery [address] [address] Sadie Piper MD [address] [place] [address] ENDOGRAFT [facility]PASS [facility]ORAC[facility] Comment on above: ENDOGRAFT BYPASS THO RACIC AORTA Start: 04-30-2025 End: 04-30-2025 ENDOGRAFT BYPASS THORACIC AORTA ENDOGRAFT BYPASS THORACIC AORTA Penetrating atherosclerotic ulcer of aorta 04/30/2025 11:30 AM EDT [facility] Start: 04-30-2025 Subsequent hospital visit by physician 04/30/2025 11:30 AM EDT Hospital Encounter [facility] Surgery [address] [place] [phone] Sadie Piper MD [address] [place] [address] [facility] Start: 04-09-2025 End: 04-09-2025 Admission to same day surgery center 04/09/2025 10:00 AM EDT - 04/09/2025 12:00 PM EDT Surgery [address] [place] [address] Sadie Piper MD [address], [facility] [address] [place] [address] ENDOGRAFT BYPASS [employer]OR[employer] [facility]ORT[facility] Comment on above: ENDOGRAFT BYPASS THO RACIC AORTA Start: 04-09-2025 End: 04-09-2025 ENDOGRAFT BYPASS THORACIC AORTA ENDOGRAFT BYPASS THORACIC AORTA Penetrating atherosclerotic ulcer of aorta 04/09/2025 10:00 AM EDT [facility] Start: 04-09-2025 Subsequent hospital visit by physician 04/09/2025 10:00 AM EDT Hospital Encounter [address] [place] [address] Sadie Piper MD [address] [place] [address] [facility] Start: 04-03-2025 End: 04-03-2026 CT Chest WO and CT angiogram Coronary arteries W contrast IV CT angiogram chest Imaging Routine Penetrating atherosclerotic ulcer of aorta Expected: 04/03/2025, Expires: 04/03/[address] [facility] Comment on above: Expected: 04/03/2025 , Expires: 04/03/2026 Start: 04-03-2025 End: 04-03-2026 CTA Abdominal vessels and Pelvis vessels W contrast IV CT angiogram abdomen and pelvis Imaging Routine Penetrating atherosclerotic ulcer of aorta Expected: 04/03/2025, Expires: 04/03/2026 [facility] Work Phone: Comment on above: Expected: 04/03/2025 , Expires: 04/03/2026 Start: 03-22-2025 COVID-19 Vaccine ( season) COVID-19 Vaccine ( season) [facility] [email or web address] [facility] Start: 02-27-2025 Medicare Annual Wellness (AWV) [...] [facility] [address] [facility] [address] [place] [address] Ratna Craven, [address] [place] [address] [facility] Start: 01-08-2025 End: 01-08-2025 Patient encounter procedure 01/08/2025 9:00 AM EST Office Visit [facility] [address] [place] [phone] Kathie Sánchez, [address] [place] [phone] [facility] Start: 01-02-2025 End: 01-02-2025 Patient encounter procedure [facility] Comment on above: Arrived Start: 12-17-2024 End: 12-17-2024 Patient encounter procedure 12/17/2024 9:40 AM EST Office Visit [facility] [address] [place] [phone] Kathie Sánchez, [address] [place] [address] [facility] Start: 12-12-2024 End: 12-12-2024 Patient encounter procedure 12/12/2024 10:00 AM EST Office Visit Radiation Oncology [address] [place] [address] Severo Dent MD [address] [place] [address] 3-4 week follow up Radiation Oncology Comment on above: 3-4 week follow up Start: 11-30-2024 End: 11-30-2024 Patient encounter procedure Radiation Oncology Comment on above: 3-4 week follow up Start: 11-28-2024 Advance Directive Discussion Advance Directive Discussion [facility] Start: 11-27-2024 End: 02-26-2025 Prostate specific Ag [Mass/volume] in Serum or Plasma PROSTATE-SPECIFIC ANTIGEN DIAGNOSTIC Lab Routine Malignant neoplasm of prostate (HCC) Expected: 11/27/2024, Expires: 02/26/2025 [facility] Work Phone: Comment on above: Expected: 11/27/2024 , Expires: 02/26/2025 Start: 11-23-2024 End: 11-23-2024 Patient encounter procedure 11/23/2024 10:00 AM EST Office Visit [facility] [address] [address] labs [facility] Comment on above: labs Start: 11-02-2024 End: 11-02-2024 Patient encounter procedure 11/02/2024 10:15 AM EST Appointment Radiation Oncology [address] [place] [address] Prostate Radiation Oncology Comment on above: Prostate Start: 11-01-2024 End: 11-01-2024 Patient encounter procedure Radiation Oncology Comment on above: Prostate FINAL OTV Fx 26-28 Start: 10-31-2024 End: 10-31-2024 Patient encounter procedure 10/31/2024 10:15 AM EST Appointment Radiation Oncology [address] [place] [address] Prostate Radiation Oncology Comment on above: Prostate Start: 10-30-2024 End: 10-30-2024 Patient encounter procedure 10/30/2024 10:15 AM EST Appointment Radiation Oncology [address] [place] [address] Prostate Radiation Oncology Comment on above: Prostate Start: 10-29-2024 End: 10-29-2024 Patient encounter procedure Radiation Oncology Comment on above: Prostate Location: [facility] Start: 10-24-2024 End: 10-24-2024 Patient encounter procedure 10/24/2024 10:15 AM EST Appointment Radiation Oncology [address] [place] [address] [facility]cology Comment on above: Prostate Start: 10-23-2024 End: 10-23-2024 Patient encounter procedure 10/23/2024 10:15 AM EST Appointment Radiation Oncology [address] [place] [address] Prostate Radiation Oncology Comment on above: Prostate Start: 10-22-2024 End: 10-22-2024 Patient encounter procedure Radiation Oncology Comment on above: Prostate Location: [facility] Start: 10-21-2024 End: 10-21-2024 Patient encounter procedure 10/21/2024 10:15 AM EST Appointment Radiation Oncology [address] [place] [address] Prostate Radiation Oncology Comment on above: Prostate Start: 10-19-2024 End: 10-19-2024 Patient encounter procedure 10/19/2024 10:15 AM EST Appointment Radiation Oncology [address] [place] [address] Prostate Radiation Oncology Comment on above: Prostate Start: 10-18-2024 End: 10-18-2024 Patient encounter procedure 10/18/2024 10:15 AM EST Appointment Radiation Oncology [address] [place] [address] Prostate Radiation Oncology Comment on above: Prostate Start: 10-17-2024 End: 10-17-2024 Patient encounter procedure 10/17/2024 10:15 AM EST Appointment Radiation Oncology [address] [place] [address] Prostate Radiation Oncology Comment on above: Prostate [...] 10:15 AM EST Appointment Radiation Oncology [address] [facility] [place] [address] Prostate Radiation Oncology Comment on above: Prostate Start: 10-11-2024 End: 01-10-2025 CBC W Auto Differential panel - Blood COMPLETE BLOOD COUNT AND DIFFERENTIAL Lab Routine Malignant neoplasm of prostate (HCC) Expected: 10/11/2024, Expires: 01/10/2025 [facility] Work Phone: Comment on above: Expected: 10/11/2024 , Expires: 01/10/2025 Start: 10-11-2024 End: 10-11-2024 Patient encounter procedure 10/11/2024 10:30 AM EST Appointment Radiation Oncology [address] [place] [address] Prostate Radiation Oncology Comment on above: Prostate Start: 10-10-2024 End: 10-10-2024 Patient encounter procedure 10/10/2024 10:30 AM EST Appointment Radiation Oncology [address] [place] [address] Prostate Radiation Oncology Comment on above: Prostate Start: 10-09-2024 End: 10-09-2024 Patient encounter procedure 10/09/2024 10:30 AM EST Appointment Radiation Oncology [address] [place] [address] Prostate Radiation Oncology Comment on above: Prostate Start: 10-08-2024 End: 10-08-2024 Patient encounter procedure Radiation Oncology Comment on above: Prostate Location: [facility] Start: 10-05-2024 End: 10-05-2024 Patient encounter procedure 10/05/2024 10:15 AM EST Appointment Radiation Oncology [address] [place] [address] Prostate Radiation Oncology Comment on above: Prostate Start: 10-04-2024 End: 10-04-2024 Patient encounter procedure 10/04/2024 2:15 PM EST Appointment Radiation Oncology [address] [place] [address] Prostate - appt in [place] before Radiation Oncology Comment on above: Prostate - appt in [place] before Start: 10-04-2024 End: 01-03-2025 CBC W Auto Differential panel - Blood COMPLETE BLOOD COUNT AND DIFFERENTIAL Lab Routine Malignant neoplasm of prostate (HCC) Expected: 10/04/2024, Expires: 01/03/2025 [facility] Work Phone: Comment on above: Expected: 10/04/2024 , Expires: 01/03/2025 Start: 10-04-2024 End: 10-04-2024 Patient encounter procedure 10/04/2024 10:15 AM EST Appointment Radiation Oncology [address] [place] [address] Prostate Radiation Oncology Comment on above: Prostate Start: 10-03-2024 End: 10-03-2024 Patient encounter procedure 10/03/2024 10:15 AM EST Appointment Radiation Oncology [address] [place] [address] Prostate Radiation Oncology Comment on above: Prostate Start: 10-02-2024 End: 10-02-2024 Patient encounter procedure 10/02/2024 10:15 AM EST Appointment Radiation Oncology [address] [place] [address] Prostate Radiation Oncology Comment on above: Prostate Start: 10-01-2024 End: 10-01-2024 Patient encounter procedure Radiation Oncology Comment on above: Prostate Location: [facility] Start: 09-28-2024 End: 09-28-2024 Patient encounter procedure 09/28/2024 2:45 PM EDT Appointment Radiation Oncology [address] [place] [address] Prostate Radiation Oncology Comment on above: Prostate Start: 09-27-2024 End: 09-27-2024 Patient encounter procedure 09/27/2024 2:45 PM EDT Appointment Radiation Oncology [address] [place] [address] Prostate Radiation Oncology Comment on above: Prostate Start: 09-26-2024 End: 09-26-2024 Patient encounter procedure 09/26/2024 11:30 AM EDT Appointment Radiation Oncology [address] [place] [address] Prostate Radiation Oncology Comment on above: Prostate Start: 09-25-2024 End: 09-25-2024 Patient encounter procedure Radiation Oncology Comment on above: NEW START PROSTATE Prostate - would lik e 10:10:45 Start: 09-21-2024 End: 12-21-2024 Prostate specific Ag [Mass/volume] in Serum or Plasma PROSTATE-SPECIFIC ANTIGEN DIAGNOSTIC Lab Routine Malignant neoplasm of prostate (HCC) Expected: 09/21/2024, Expires: 12/21/2024 [facility] Work Phone: Comment on above: Expected: 09/21/2024 , Expires: 12/21/2024 Start: 09-18-2024 End: 09-18-2024 Patient encounter procedure 09/18/2024 9:00 AM EDT Office [place] [address] Financial Questions for upcoming treatments Financial Clearance [...] disease), cervical Expected: 09/13/2024 (Approximate), Expires: 09/13/2025 [facility] Work Phone: Comment on above: Expected: 09/13/2024 [...] PM EDT Office Visit Radiation Oncology [address] [place] [address] Severo Dent MD [address] [place] [address] [place] [address] 2 month rv Radiation Oncology Comment on above: 2 month rv Start: 07-29-2024 Covid-19 Vaccine () Covid-19 Vaccine () [facility] Start: 07-29-2024 Influenza vaccination Influenza Vacc ine (#1) [facility] Start: 07-12-2024 End: 07-12-2024 Patient encounter procedure 07/12/2024 1:15 PM EDT Office Visit Radiation Oncology [address] [place] [address] Severo Dent MD [address] [place] [address] [place] [address] 3 week rv-Decipher results Radiation Oncology Comment on above: 3 week rv-Decipher r esults Start: 06-01-2024 End: 08-31-2024 Prostate specific Ag [Mass/volume] in Serum or Plasma PROSTATE-SPECIFIC ANTIGEN DIAGNOSTIC Lab Routine Prostate cancer (HCC) Expected: 06/01/2024, Expires: 08/31/2024 [facility] Work Phone: Comment on above: Expected: 06/01/2024 , Expires: 08/31/2024 Start: 11-28-2023 Advance Directive Discussion Advance Directive Discussion [facility] Start: 11-28-2023 Behavioral Health Screening Behavioral Health Screening [facility] Start: 07-29-2023 Covid-19 Vaccine () Covid-19 Vaccine () [facility] Start: 07-29-2023 Influenza vaccination Influenza Vacc ine (#1) [facility] Start: 2023 Abdominal aortic aneurysm screening Abdominal Aortic Aneurysm (AAA) Screen [facility] Start: 2023 Fall Risk Screening Fall Risk Screen ing [facility] Start: 2023 Pneumococcal Vaccine : 65+ Years (1 - PCV) Pneumococcal Vaccine: 65+ Years (1 - PCV) [facility] Start: 2018 RSV Vaccine (1 - 1-d ose 60+ series) RSV Vaccine (1 - 1-dose 60+ series) [facility] Start: 2013 Prostate specific antigen measurement Prostate Cancer Screening Discussion [facility] Start: 2008 Screening for malign ant neoplasm of lung Lung Cancer Screening [facility] Start: 2003 Diabetes Screening Diabetes Screenin g [facility] Start: 2003 Screening for malign ant neoplasm of colon [facility] Start: 1993 Lipid panel Lipid Screening [facility] Start: 1988 Zoledronic acid therapy Alpha- 1 Antitrypsin Deficiency Screening [facility] Start: 1976 Adult BMI Screening Adult BMI Screen ing 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 Start: 1970 Tobacco Screening Tobacco Screening [facility] Start: 1964 Pneumococcal Vaccine : 65+ (1 of 2 - PCV) Pneumococcal Vaccine: 65+ (1 of 2 - PCV) [facility] Start: 1958 Abdominal aortic aneurysm screening Abdominal Aortic Aneurysm Screening [facility] Start: 1958 Medicare Annual Wellness (AWV) Medicare Annual Wellness (AWV) [facility] Start: 1958 Screening for malign ant neoplasm of colon [facility] Start: 1958 Screening for malign ant neoplasm of lung Lung Cancer Screening Shared Decision Making [facility] BLOOD CULTURE 1 BLOOD CULTURE 1 Lab Routine 01/05/2024 4:58 PM EST [facility] BLOOD CULTURE 2 BLOOD CULTURE 2 Lab Routine 01/05/2024 5:04 PM EST [facility] End: 04-03-2026 Creatinine includes GFR, serum Creatinine includes GFR, serum Lab Routine Penetrating atherosclerotic ulcer of aorta 1 Occurrences starting 04/03/2025 until 04/03/[address] [facility] Comment on above: 1 Occurrences starti ng 04/03/2025 until 04/03/2026 CT Guidance for radiation treatment of Unspecified body region CT SIM PLANNING RADIATION ONCOLOGY Radiology Routine Malignant neoplasm of prostate (HCC) Ordered: 09/17/2024 [facility] Work Phone: Comment on above: Ordered: 09/17/2024 LOWER RESPIRATORY CULTURE LOWER RESPIRATORY CULTURE Lab Routine 02/24/2025 9:10 AM EDT [facility] End: 06-01-2025 Prostate specific Ag [Mass/volume] in Serum or Plasma PROSTATE-SPECIFIC ANTIGEN DIAGNOSTIC Lab Routine Prostate cancer (HCC) Every 6 months for 3 Occurrences starting 06/01/2024 until 06/01/2025 [facility] Comment on above: Every 6 months for 3 Occurrences starting 06/01/2024 until 06/01/2025 Immunizations Immunization Date Immunization Notes Care Provider [facility] 03-20-2025 unknown vaccine or immune globulin Sadie Piper MD Work Phone: [facility] 09-21-2024 unknown vaccine or immune globulin Sadie Piper MD Work Phone: [facility] 08-17-2024 Pneumococcal Conjuga te PCV [address] Kathie Sánchez [address] Work Phone: [facility] 08-17-2024 RSV, recombinant, protein subunit RSVpreF, adjuvant reconstitu, 120mcg/0.5mL, PF (Arexvy) Kathie Sánchez [address] Work Phone: [facility] 08-17-2024 unknown vaccine or immune globulin Sadie Piper MD Work Phone: [facility] 09-17-2023 unknown vaccine or immune globulin Sadie Piper MD Work Phone: [facility] 09-17-2023 zoster vaccine recombinant Rufina VORA [facility] 07-04-2023 unknown vaccine or immune globulin Sadie Piper MD Work Phone: [facility] 07-04-2023 zoster vaccine recombinant Rufina VORA [facility] 09-25-2022 SARS-CoV-2 (COVID-19 ) [id number] Rufina VORA [facility] 09-25-2022 unknown vaccine or immune globulin Sadie Piper MD Work Phone: [facility] 05-26-2021 SARS-CoV-2 (COVID-19 ) mRNA BNT-162b2 vax Rufina VORA [facility] 05-26-2021 unknown vaccine or immune globulin Sadie Piper MD Work Phone: [facility] 05-05-2021 SARS-CoV-2 (COVID-19 ) mRNA BNT-162b2 vax Rufina VORA [facility] 05-05-2021 unknown vaccine or immune globulin Sadie Piper MD Work Phone: [facility] 03-11-2021 tetanus toxoid, redu liyah diphtheria toxoid, and acellular pertussis vaccine, adsorbed Rufina VORA [facility] 03-11-2021 unknown vaccine or immune globulin Sadie Piper MD Work Phone: [facility] Payers Date Payer Category Payer Medicare HMO ANTH MEDICARE Member Subscriber Plan / Payer (Effective 2023-Present) Name: Mateo Stearns Relation to Subscriber: Self Name: Mateo Stearns Payer ID: [id number] (NAIC) Group ID: [id number] Type: Not on file Address: [address] [place] [id number] 2023 Unknown ANTHEM BLUE CROS S AND BLUE SHIELD ANTHEM MEDICARE ADVANTAGE HMO [id number] 2023-Present [phone] [address] [id number] 2022 Medicare (Managed Care) CROW EDICARE ADVANTAGE [id number] 2020 Medicaid [id number]. [id number] 2020 Medicare [id number]. [id number]. [id number] 2017 Medicaid [id number] 1959 Medicaid [id number] 1959 Medicare [id number] 1959 Unknown [id number] 1958 Unknown [id number] 2.16.840.1.813686.3.579.2. 593 1958 Unknown [id number] 2.16.840.1.663189.3.579.2. 593 1958 Unknown [id number] 2.16.840.1.004367.3.579.2. 593 1958 Unknown [id number] 2.16.840.1.328030.3.579.2. 593 1958 Unknown [id number] 2.16.840.1.859369.3.579.2. 593 1958 Unknown [id number] 2.16.840.1.088052.3.579.2. 593 1958 Unknown [id number] 2.16.840.1.750659.3.579.2. 593 1958 Unknown [id number] 2.16840.1.238908.3.579.2. 593 1958 Unknown [id number] 2.16840.1.937412.3.579.2. 727 1958 Unknown [id number] 2.16.840.1.207941.3.579.2. 727 1958 Unknown [id number] 2.16840.1.198682.3.579.2. 727 1958 Unknown [id number] 2.16.840.1.474295.3.579.2. 727 1958 Unknown [id number] 2.16.840.1.368957.3.579.2. 727 1958 Unknown [id number] 2.16.840.1.207970.3.579.2. 1259 1958 Unknown [id number] 2.16.840.1.354201.3.579.2. 1259 1958 Unknown [id number] 2.16.840.1.145038.3.579.2. 1259 1958 Unknown [id number] 2.16.840.1.359389.3.579.2. 1259 1958 Unknown [id number] 2.16.840.1.400226.3.579.2. 727 1958 Unknown [id number] 2.16.840.1.429144.3.579.2. 727 1958 Unknown [id number] 2.16.840.1.738170.3.579.2. 1286 1958 Unknown [id number] 2.16.840.1.392152.3.579.2. 1286 1958 Unknown [id number] 2.16.840.1.251780.3.579.2. 1286 1958 Unknown [id number] 2.16.840.1.682376.3.579.2. 1286 1958 Unknown [id number] 2.16.840.1.351679.3.579.2. 1286 1958 Unknown [id number] 2.16.840.1.013409.3.579.2. 1286 1958 Unknown [id number] 2.16.840.1.118139.3.579.2. 1286 1958 Unknown [id number] 2.16.840.1.987347.3.579.2. 1286 1958 Unknown [id number] 2.16.840.1.401255.3.579.2. 1286 1958 Unknown [id number] 2.16.840.1.533062.3.579.2. 1286 Self-pay Self Pay [id number] Social History Date Type Detail [facility] Start: 1960 Sex Assigned At Male F [facility] Start: 05-17-2022 End: 11-13-2023 Tobacco smoking status Ex-smoker (finding) [facility] Start: 11-13-2023 End: 02-28-2024 Sex Assigned At Male [facility] Tobacco smoking status Never [facility] Start: 11-28-1975 End: 11-28-2016 History of tobacco use Current smoker [facility] Start: 11-28-1975 End: 11-28-2016 History of tobacco use Cigarette Smoker [facility] Start: 11-13-2023 End: 02-28-2024 Cigarettes smoked current (pack per day) - Reported 2 [facility] Start: 11-13-2023 End: 05-30-2025 Alcohol intake Ex-drinker (finding) [facility] Start: 1960 Sex Assigned At Not on file [facility] Start: 05-16-2013 Tobacco smoking stat us [facility] Smokes tobacco daily [facility] Start: 05-16-2013 End: 03-07-2025 Tobacco use and exposure Smokeless tobacco non-user [facility] Start: 05-16-2013 Alcohol intake Current drinke r of alcohol (finding) [facility] Start: 06-21-2024 Alcohol Comment quit [address] [place] [address] Within the last year , have you [...] beverage intake Current non-drinker of alcohol (finding) [facility] Start: 11-15-2017 Alcohol Comment quit drinking 2 years ago; august [address] [facility] Start: 07-07-2017 Sex Male (finding) [facility] Medical Equipment Procedure Code Equipment Code Equipment Origin al Text Equipment Identifier Dates Cup Actb 50mm Pn cl Sect Pinn Sector W/Gription 50mm - Sn/A - [id number] Start: 11-15-2017 Stm Fem 160mm 14 Crl Amt Ti Koehler Corail Amt Collar Size 14 - Sn/A - [id number] Start: 11-15-2017 Ins Actb 50mm 32 mm +4mm Ntrl Altrx +4 Neut [id number] - Sn/A - [id number] Start: 11-15-2017 Hip Dep Pf Spcl Mtl Construct - [id number] Start: 11-15-2017 Elmntr Hl Drlc P ncl Hip Mrthn [place] Positive Stop - Sn/A - [id number] Start: 11-15-2017 Hd Fem 32mm 32 + 5mm Std Articul/Brandon Ball 32 +5 Br - Sn/A - [id number] Start: 11-15-2017 Scr Hip Canc Cnn Gription 25mm Pinn Can Bone Screw [id number] - Sn/A - [id number] Start: 11-15-2017 Goals Date Patient Goal Desired Activity /State Personal health goal Personal health goal Comment on above: Formatting of this n ote might be different from the original. Evaluation of progress towards goal: safe transition back to [facility] for long-term care services. Functional Status Date Assessment Result Facility 05-01-2025 Total score [AUDIT-C] 0 05/01/20 25 10:30 AM Kaia Sanford, CARIDAD [facility] 05-01-2025 Humiliation, Afraid, Rape, and Kick questionnaire [HARK] [facility] 05-21-2024 Functional Status N/A [facility] 06-06-2023 Functional Status N/A [facility] 05-17-2023 Functional Status N/A [facility] 02-07-2023 Functional Status N/A [facility] 08-05-2022 N/A [facility] 06-11-2022 Functional Status N/A [facility] 05-17-2022 Functional Status N/A [facility] [facility] [employer] Work Phone: [employer] Clinical Notes 05-17-2022 to 05-30-2025 Assessment [...] to do TEVAR using a different device. [facility] 05-30-2025 Miscellaneous Notes Associated Problem(s): Penetrating atherosclerotic ulcer of aorta We will try to do TEVAR using a different device. documented in this encounter [facility] 05-30-2025 History of Presen t illness [...] Acute and chronic respiratory failure with hypoxia ([facility]) Anemia Anxiety Arthritis Atrial fibrillation ([facility]) Chronic respiratory failure ([facility]) Cognitive communication deficit Colitis COPD (chronic obstructive pulmonary disease) ([facility]) Depression Dysphagia, oropharyngeal phase Emphysema of lung ([facility]) Fracture of unspecified part of neck of [...] Performed by Jr Rene Rosenbaum DO at [facility] THORACIC ARTERIOGRAM WITH IVUS N/A 04/30/2025 Performed by Sadie Piper MD at [facility] Social and Family History: Social History [...] Strain: Low Risk (04/05/2025) Received from [facility] Overall Financial Resource Strain (CARDIA) Difficulty of Paying Living Expenses: Not very hard Food Insecurity: No Food Insecurity (05/01/2025) Hunger Screening Food Insecurity - Worry: Never True Food Insecurity - Inability: Never True Transportation Needs: No Transportation Needs (05/01/2025) PRAPARE - Transportation Lack of Transportation (Medical): No Lack of Transportation (Non-Medical): No Physical Activity: Inactive (02/28/2024) Received from [facility] Healthcare Exercise Vital Sign Days of Exercise per Week: 0 days Minutes of Exercise per Session: 0 min Stress: No Stress Concern Present (02/28/2024) Received from [facility] [place] [facility] Occupational Health - Occupational Stress Questionnaire Feeling of Stress : Only a little Social Connections: Moderately Isolated (02/28/2024) Received from [facility] Social Connection and Isolation Panel [NHANES] Frequency of Communication with Friends and Family: Three times a week Frequency of Social Gatherings with Friends and Family: Never Attends [employer] Services: Never Active Member of Clubs or [...] today for tevar 04-09-25 testing done in [place] angiogram chest Diagnoses and all orders for this visit: Penetrating atherosclerotic ulcer of aorta Aneurysm of descending thoracic aorta without rupture Sadie Piper MD, CELSO, RPVI, FSVS, FACS [facility] [employer] [facility] This note was created with the assistance of a speech recognition program. While intending to generate a timely document that accurately reflects the content of the visit, no guarantee can be provided that every grammatical or spelling mistake has been or will be identified or corrected. Thank you for your understanding. documented in this encounter [facility] 05-08-2025 Note PR Cardiology - [facility] Subjective Mateo Stearns is a [...] endovascular repair by Dr. Sadie Piper at [facility] vascular. Prior medical history is significant for COPD, emphysema [Was admitted with pneumonia to the [facility] in December 2024] and atrial fibrillation. [...] admission. Following that he was admitted at [facility] with Dr. Piper to undergo thoracic repair [...] BSA 1.71 m??? (more content not included)... [facility] 05-01-2025 Nurse Note Transport here to drive pt to nursing facility. Pt has his own w/c and all his belongings are packed up. PIV removed without issue. Report called in to receiving facility, all question answered. [facility] 05-01-2025 Nurse Note Transport here to [...] oxygen 2L/m which is also uses at [facility]. Elliott continue to monitor. documented in this encounter [facility] 05-01-2025 Progress note Formatting of t his note might be different from the original. DISCHARGE PLANNING NOTE W/c transport to [facility] via PTN, confirmed in zoll for 05/01 at 1430. [employer] 05-01-2025 Miscellaneous Notes DISCHARGE PLANNING NOTE W/c transport to [facility] via PTN, confirmed in zoll for 05/01 at 1430. Images from the original note were not included. Initial Discharge Planning Assessment Ornament Setter met with patient at bedside, introduced self, explained role. Patient alert and oriented, able to participate in discharge conversation. Initial Assessment Flowsheet Row Most Recent Value Patient Information Initial Pre-Hospitalization Assessment Completed? Completed Primary Caregiver Self Support System Friends Discharge Planning Living Arrangements Private Residence, Alone Assistance Needed ADLs Care Facility Name [facility] Home Care Services No Type [...] No Caregiver Needed Patient/Caregiver Goals Patient/Caregiver Goals Senior Care Care Skilled Nuring Care Extended Care Facility (Medical Coding Auditor) Community Provider Referral Community Provider Referral None Services Requested Patient expects to be discharged to: SNF Does the patient wish to have family/friend/caregiver involved in their discharge planning? No, the patient does not wish to have family/friend/caregiver involved in their discharge planning Discharge Disposition Skilled Return Skilled Return Name [facility] Skilled Return Skilled Return Who is the existing DME Provider? Other [unknown] Does the patient need discharge transportation arranged? Yes Transportation Arranged [facility] Mobility issues discussed with transportation provider Yes Patient choice offered Patient declined List Provided Patient declined Patient Declined Active with Provider DC Planning Complete Discharge Milestones Yes Prior to admission patient was at [facility] for rehab. He was unclear if he is there as a long-term care patient, as he stated he is out of skilled days and mentioned having to pay to be there. He states his goal is to return home to his 2nd floor apartment in [place], [place], but he has not been able [...] with patient. He agrees to returning to [facility]; CN placed a return referral. [...] progress towards goal: safe transition back to [facility] for long-term care services. Will continue to follow as plan of care develops. Please feel free to reach out for any discharge planning questions. - Linda Bhat RN 05/01/25 11:45 AM Addendum: CRF and discharge orders reviewed. CRF sent to facility. CN tasked ambulette transport, waiting on confirmed time. Facility able to accept back today. - Linda hBat RN 05/01/25 12:47 PM Addendum: [facility] transport time scheduled for 1430 back to [facility]. Bedside RN and facility notified. - Lidna Bhat RN 05/01/25 1:07 PM Problem: Pain Goal: Patient goal is pain score less than 4, able to rest, and participant in treatment plan as appropriate Description: INTERVENTIONS: 1. Encourage patient or legal community health program representative to report early pain and ask [...] per policy 9. Teach patient or legal community health program representative interventions for comforting Outcome: Progressing Note: [...] at the bedside 7. Instruct patient/ patient community health program representative about use of safety devices 8. Include patient/ patient community health program representative in decisions related to safety Outcome: [...] hygiene technique. 7. Identify and instruct patient/patient community health program representative in use of appropriate isolation precautions for identified infection/symptoms. 8. Provide and discuss with patient/patient community health program representative on educational MDRO sheet. 9. Encourage and monitor nutritional status daily and consult orthopaedic physician assistant if indicated. 10. Implement neutropenic guidelines as needed. Outcome: Progressing Note: Evaluation of progress towards goal: Patient evaluated for s/s of infection. Patient's vital signs, labs, and diagnostic results are being monitored each shift. Brief Post-op Note NAME: Mateo Stearns : 1960 PROCEDURE DATE: 04/30/2025 Surgeon: Surgeons and Role: * Sadie Piper MD - Primary Assistants: Staff: Wire Inspector Primary: Annia Aviles RN Graphics Edit Technician: Darrin Decker Wire Inspector Relief: Lynn Rivas RN Scrub Relief: ST Jacques Scrub Person: ST Cedric Fellow: Malia Gil MD Cold Rolling Supervisor Resident: Patsy Singh MD Pre-op Diagnosis: Penetrating [...] were administered Condition: Findings: Percutaneous access bilateral SELF PAY REPRESENTATIVE Percutaneous closure of bilateral SELF PAY REPRESENTATIVE with proglide closure device IVUS Aortogram Case aborted as unable to delivery TEVAR endograft pass the aortic arch despite multiple maneuvers Palp DP bilaterally Small hematoma in left groin Flat for 4 hours, until 1800, groin check prior to sitting up Neuro intact documented in this encounter [facility] 05-01-2025 Hospital course Narrative Images from the original note were not included. HOSPITAL DISCHARGE SUMMARY Patient ID: Mateo Stearns Acct: [id number] Patient's PCP: DIANA BUSH MD Admit Date: [...] Acute and chronic respiratory failure with hypoxia ([facility]) Anemia Anxiety Arthritis Atrial fibrillation ([facility]) Chronic respiratory failure ([facility]) Cognitive communication deficit Colitis COPD (chronic obstructive pulmonary disease) ([facility]) Depression Dysphagia, oropharyngeal phase Emphysema of lung ([facility]) Fracture of unspecified part of neck of [...] a 64 y.o. male who presented to [facility] for attempted TEVAR procedure. Surgery was [...] informed consent. he was brought to the candlemaking laborer in a fasting state. The left wrist area was prepped and draped in usual fashion. Micropuncture technique was used for access in the left radial artery. A 6-Bahamian x 11 cm sheath was placed. Verapamil was given through the sheath, and heparin was administered intravenously. The 6-Bahamian JR4 catheter was navigated across the aortic valve over a wire and used to perform left heart catheterization with measurement of pressures. Pullback across the aortic valve was performed with measurement of pressures. Bilateral selective coronary angiography was then performed using 6-Bahamian JL4 and JR4 diagnostic catheters. Catheters were removed. Heparin was administered intravenously and therapeutic ACT was confirmed during the rest of the procedure. A 6-Bahamian XB 3.5 guiding catheter was advanced and used to engage the left coronary ostium. Baseline FAMILIA flow was 3. A GeoGraffitiwater coronary guide wire was advanced to the [...] Time Provider Department Center 05/27/2025 11:30 AM [facility] CT1 (450#) [facility] CT [facility] 05/30/2025 10:00 AM Sadie Piper MD [facility] Follow-up Information DIANA BUSH MD Follow up. Specialty: Family Medicine Contact information: [address] [facility] [address] Scheduled Appointments May 27, 2025 11:30 AM (Arrive by 11:00 AM) CT CTA/CTV combination with contrast with [facility] CT1 (450#) [facility] ([facility]) [address] [facility] [id number] DIET: No food or drink [...] POST OPERATION VISIT with [facility] ([facility]) [address] [place] [phone] At the time of your visit please [...] [place] 05/01/25 1317 documented in this encounter [facility] 05-01-2025 Progress note Formatting of t his note is different from the original. Images from the original note were not included. Initial Discharge Planning Assessment Ornament Setter met with patient at bedside, introduced self, explained role. Patient alert and oriented, able to participate in discharge conversation. Initial Assessment Flowsheet Row Most Recent Value Patient Information Initial Pre-Hospitalization Assessment Completed? Completed Primary Caregiver Self Support System Friends Discharge Planning Living Arrangements Private Residence, Alone Assistance Needed ADLs Care Facility Name [facility] Home Care Services No Type [...] No Caregiver Needed Patient/Caregiver Goals Patient/Caregiver Goals Senior Care Care Skilled Nuring Care Extended Care Facility (Jail) Community Provider Referral Community Provider Referral None Services Requested Patient expects to be discharged to: SNF Does the patient wish to have family/friend/caregiver involved in their discharge planning? No, the patient does not wish to have family/friend/caregiver involved in their discharge planning Discharge Disposition Skilled Return Skilled Return Name [facility] Skilled Return Skilled Return Who is the existing DME Provider? Other [unknown] Does the patient need discharge transportation arranged? Yes Transportation Arranged [place] Mobility issues discussed with transportation provider Yes Patient choice offered Patient declined List Provided Patient declined Patient Declined Active with Provider DC Planning Complete Discharge Milestones Yes Prior to admission patient was at [facility] for rehab. He was unclear if he is there as a long-term care patient, as he stated he is out of skilled days and mentioned having to pay to be there. He states his goal is to return home to his 2nd floor apartment in [place], [place], but he has not been able [...] with patient. He agrees to returning to [facility]; CN placed a return referral. [...] progress towards goal: safe transition back to [facility] for long-term care services. Will [...] transport time scheduled for 1430 back to [facility]. Bedside RN and facility notified. - Linda Bhat RN 05/01/25 1:[address] [facility] 05-01-2025 History of Presen t illness Narrative Images from the original note were not included. [facility] [place] [facility] PROGRESS NOTE Subjective: He was seen at bedside this morning, no acute events overnight. He is POD1 s/p perc access bilateral SELF PAY REPRESENTATIVE, IVUS, and aborted TEVAR due to inability [...] plan of care. documented in this encounter [facility] 04-30-2025 Plan of care note Problem: Pain Goal: Patient goal is pain score less than 4, able to rest, and participant in treatment plan as appropriate Description: INTERVENTIONS: 1. Encourage patient or legal community health program representative to report early pain and ask [...] per policy 9. Teach patient or legal community health program representative interventions for comforting Outcome: Progressing Note: [...] at the bedside 7. Instruct patient/ patient community health program representative about use of safety devices 8. Include patient/ patient community health program representative in decisions related to safety Outcome: [...] hygiene technique. 7. Identify and instruct patient/patient community health program representative in use of appropriate isolation precautions for identified infection/symptoms. 8. Provide and discuss with patient/patient community health program representative on educational MDRO sheet. 9. Encourage and monitor nutritional status daily and consult orthopaedic physician assistant if indicated. 10. Implement neutropenic guidelines as needed. Outcome: Progressing Note: Evaluation of progress towards goal: Patient evaluated for s/s of infection. Patient's vital signs, labs, and diagnostic results are being monitored each shift. [facility] 04-30-2025 Nurse Note Patient arrived to the unit at this time . Denies pain. Pt alert et oriented, able to make needs known. Oriented to room and unit. Bed in low position call light within reach. Assessment completed. Skin assessment completed. Pt currently on oxygen 2L/m which is also uses at [facility]. Elliott continue to monitor. [facility] 04-30-2025 Procedure note Brief Post-op Note NAME: Mateo Stearns : 1960 PROCEDURE DATE: 04/30/2025 Surgeon: Surgeons and Role: * Sadie Piper MD - Primary Assistants: Staff: Wire Inspector Primary: Annia Aviles RN Graphics Edit Technician: Darrin Decker Wire Inspector Relief: Lynn Rivas RN Scrub Relief: ST Jacques Scrub Person: ST Cedric Fellow: Malia Gil MD Cold Rolling Supervisor Resident: Patsy Singh MD Pre-op Diagnosis: Penetrating [...] were administered Condition: Findings: Percutaneous access bilateral SELF PAY REPRESENTATIVE Percutaneous closure of bilateral SELF PAY REPRESENTATIVE with proglide closure device IVUS Aortogram Case aborted as unable to delivery TEVAR endograft pass the aortic arch despite multiple maneuvers Palp DP bilaterally Small hematoma in left groin Flat for 4 hours, until 1800, groin check prior to sitting up Neuro intact [employer] Work Phone: 04-30-2025 Attending History and physical note HISTORY AND PHYSICAL INTERVAL NOTE: Mateo Stearns 1960 [id number] H&P reviewed. The patient was examined and there are no changes to the H&P. Sadie Piper MD Source Note - Denis Angel MD - 04/05/2025 12:56 PM EDT Images from the original note were not included. Hospital Medicine History and Physical 04/05/2025 12:56 PM THE HOSPITALIST TEAM PREFERS TO USE [employer] CHAT FOR NON-URGENT COMMUNICATION 7AM-7PM. IF I DO NOT RESPOND WITHIN 20 MINUTES OR URGENT MATTERS, PLEASE CALL THROUGH THE [employer] REFINING EQUIPMENT OPERATOR. FROM 7PM-7AM, PLEASE PAGE [phone](COVR). Chief Complaint No chief complaint on file. History of Present Illness Mateo Stearns is an 64 y.o. 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 with the underwent left heart cath with [...] As above COPD (chronic obstructive pulmonary disease) ([facility]) Bronchodilators supplemental oxygen Paroxysmal atrial fibrillation ([facility]) Has history remote history of paroxysmal atrial fibrillation currently maintained on diltiazem and aspirin check to the vascular score appear to be 1 for age and 1 for vascular disease patient is not on oral anticoagulation extensive bruising and upcoming surgery will follow-up with traveling inventory associate Thoracic aortic aneurysm, without rupture, unspecified For [...] this hospital stay by a member of [facility]. Past Medical History Past Medical History: Diagnosis Date Aneurysm Atrial fibrillation ([facility]) Cancer ([facility]) COPD (chronic obstructive pulmonary disease) ([facility]) Prostate cancer ([facility]) Past Surgical History Past Surgical History: Procedure [...] Resource Strain: Low Risk (02/28/2024) Received from [facility] Overall Financial Resource Strain (CARDIA) Difficulty of Paying Living Expenses: Not very hard Food Insecurity: No Food Insecurity (03/07/2025) Received from [facility] Hunger Screening Within the past 12 months we worried whether our food would run out before we got money to buy more.: Never True Within the past 12 months the food we bought just didn't last and we didn't have money to get more.: Never True Transportation Needs: No Transportation Needs (02/28/2024) Received from [facility] PRAPARE - Transportation Lack of Transportation (Medical): No Lack of Transportation (Non-Medical): No Physical Activity: Inactive (02/28/2024) Received from [facility] Exercise Vital Sign Days of Exercise per Week: 0 days Minutes of Exercise per Session: 0 min Stress: No Stress Concern Present (02/28/2024) Received from [facility] [place] of Occupational Health - Occupational Stress Questionnaire Feeling of Stress : Only a little Social Connections: Moderately Isolated (02/28/2024) Received from [facility] Social Connection and Isolation Panel [NHANES] Frequency of Communication with Friends and Family: Three times a week Frequency of Social Gatherings with Friends and Family: Never Attends [employer] Services: Never Active Member of Clubs or Organizations: Yes Attends Club or Organization Meetings: Never Marital Status: Intimate Partner Violence: Not At Risk (02/28/2024) Received from [facility] Humiliation, Afraid, Rape, and Kick questionnaire Fear of Current or Ex-Partner: No Emotionally Abused: No Physically Abused: No Sexually Abused: No Housing Stability: Low Risk (02/28/2024) Received from [facility] Housing Stability Vital Sign Unable to Pay [...] mouth two times daily. Not Taking HYDROcodone-acetaminophen ([place]) 5-325 mg tablet Take 1 tablet by mouth every 4 (four) hours if needed. Not Taking Labs Labs Reviewed CBC AND DIFFERENTIAL Narrative: The following orders were created for panel order CBC and differential. Procedure Abnormality Status --------- ------ CBC auto differential[[id number]] Please view results for these tests on [...] 04/05/2025 9:37:46 AM Signed Denis Angel MD [facility] 04/05/2025 12:56 PM [facility] [email or web address] [facility] 04-30-2025 History and physical note HISTORY AND PHYSICAL INTERVAL NOTE: Mateo Stearns 1960 [id number] H&P reviewed. The patient was examined and there are no changes to the H&P. Sadie Piper MD Source Note - Denis Angel MD - 04/05/2025 12:56 PM EDT Images from the original note were not included. Hospital Medicine History and Physical 04/05/2025 12:56 PM THE HOSPITALIST TEAM PREFERS TO USE [employer] CHAT FOR NON-URGENT COMMUNICATION 7AM-7PM. IF I DO NOT RESPOND WITHIN 20 MINUTES OR URGENT MATTERS, PLEASE CALL THROUGH THE PETROLEUM REFINING EQUIPMENT OPERATOR. FROM 7PM-7AM, PLEASE PAGE [phone](COVR). Chief Complaint No chief complaint on file. History of Present Illness Mateo Stearns is an 64 y.o. 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 with the underwent left heart cath with [...] As above COPD (chronic obstructive pulmonary disease) ([facility]) Bronchodilators supplemental oxygen Paroxysmal atrial fibrillation ([facility]) Has history remote history of paroxysmal atrial fibrillation currently maintained on diltiazem and aspirin check to the vascular score appear to be 1 for age and 1 for vascular disease patient is not on oral anticoagulation extensive bruising and upcoming surgery will follow-up with traveling inventory associate Thoracic aortic aneurysm, without rupture, unspecified For [...] this hospital stay by a member of [facility]. Past Medical History Past Medical History: Diagnosis Date Aneurysm [facility] Cancer ([facility]) COPD (chronic obstructive pulmonary disease) ([facility] Prostate cancer ([facility]) Past Surgical History Past Surgical History: Procedure [...] Resource Strain: Low Risk (02/28/2024) Received from [facility] Overall Financial Resource Strain (CARDIA) Difficulty of Paying Living Expenses: Not very hard Food Insecurity: No Food Insecurity (03/07/2025) Received from [facility] Hunger Screening Within the past 12 months we worried whether our food would run out before we got money to buy more.: Never True Within the past 12 months the food we bought just didn't last and we didn't have money to get more.: Never True Transportation Needs: No Transportation Needs (02/28/2024) Received from [facility] PRAPARE - Transportation Lack of Transportation (Medical): No Lack of Transportation (Non-Medical): No Physical Activity: Inactive (02/28/2024) Received from [facility] Exercise Vital Sign Days of Exercise per Week: 0 days Minutes of Exercise per Session: 0 min Stress: No Stress Concern Present (02/28/2024) Received from [facility] [employer] [place] [facility] - Occupational Stress Questionnaire Feeling of Stress : Only a little Social Connections: Moderately Isolated (02/28/2024) Received from [facility] Social Connection and Isolation Panel [NHANES] Frequency of Communication with Friends and Family: Three times a week Frequency of Social Gatherings with Friends and Family: Never Attends [employer] Services: Never Active Member of Clubs or Organizations: Yes Attends Club or Organization Meetings: Never Marital Status: Intimate Partner Violence: Not At Risk (02/28/2024) Received from [facility] Humiliation, Afraid, Rape, and Kick questionnaire Fear of Current or Ex-Partner: No Emotionally Abused: No Physically Abused: No Sexually Abused: No Housing Stability: Low Risk (02/28/2024) Received from [facility] Housing Stability Vital Sign Unable to Pay [...] mouth two times daily. Not Taking HYDROcodone-acetaminophen (Haynes) 5-325 mg tablet Take 1 tablet by mouth every 4 (four) hours if needed. Not Taking Labs Labs Reviewed CBC AND DIFFERENTIAL Narrative: The following orders were created for panel order CBC and differential. Procedure Abnormality Status --------- ------ CBC auto differential[[id number]] Please view results for these tests on [...] 04/05/2025 9:37:46 AM Signed Denis Angel MD [facility] 04/05/2025 12:56 PM HISTORY AND PHYSICAL INTERVAL NOTE: Mateo Stearns 1960 [id number] H&P reviewed. The patient was examined and [...] Teaching Physician's Revisions: None Evelin Renteria MD, [facility] Cardiology Progress Note Subjective Subjective: Patient was [...] tablet 75 mg, 75 mg, oral, Daily, Clmeent Saba MD, 75 mg at 04/06/25 0950 guaiFENesin (Mucinex) 12 hr tablet 1,200 mg, 1,200 mg, oral, BID, Denis Angel MD, 1,200 mg at 04/06/25 0950 HYDROcodone-acetaminophen (Haynes) 5-325 mg per tablet 1 tablet, 1 [...] 78 QT Interval 344 QTC CALCULATION(BAZETT) 418 R-[place] 59 T Wave [place] 53 Impression Atrial fibrillation Abnormal ECG When [...] informed consent. he was brought to the candlemaking laborer in a fasting state. The left wrist area was prepped and draped in usual fashion. Micropuncture technique was used for access in the left radial artery. A 6-Bahamian x 11 cm sheath was placed. Verapamil was given through the sheath, and heparin was administered intravenously. The 6-Bahamian JR4 catheter was navigated across the aortic valve over a wire and used to perform left heart catheterization with measurement of pressures. Pullback across the aortic valve was performed with measurement of pressures. Bilateral selective coronary angiography was then performed using 6-Bahamian JL4 and JR4 diagnostic catheters. Catheters were removed. Heparin was administered intravenously and therapeutic ACT was confirmed during the rest of the procedure. A 6-Bahamian XB 3.5 guiding catheter was advanced and used to engage the left coronary ostium. Baseline FAMILIA flow was 3. A Vendobots coronary guide wire was advanced to the distal LAD coronary artery. We decided to protect the diagonal branch with a wire. A Mu SigmaW coronary guidewire was then advanced and used [...] LVEF 55% based on transthoracic echocardiogram in [facility] on 03/29/2025 Paroxysmal atrial fibrillation, CHADSVASC of [...] least in part, completed using a voice cinnamon grinder system. Every effort was made to ensure accuracy. However, inadvertent computerized cinnamon grinder errors may be present. Huber Cardenas MD PGY-4 Lcac Radar Operator/Navigator [facility] documented in this encounter [facility] 04-30-2025 Attending History and physical note HISTORY AND PHYSICAL INTERVAL NOTE: Mateo Vergarayt 1960 [id number] H&P reviewed. The patient was examined and [...] Teaching Physician's Revisions: None Evelin Renteria MD, [facility] Cardiology Progress Note Subjective Subjective: Patient was seen and examined. Reported feeling well. No chest pain, or shortness of breath. No abdominal pain, nausea, or vomiting. No orthopnea or paroxysmal nocturnal dyspnea. No lower leg swelling. No acute events overnight. Objective Current Facility-Administered Medications: acetaminophen (Tylenol) tablet 650 mg, 650 mg, oral, q6h PRN, Meghna Zavaleta, SECONDS HANDLER, 650 mg at 04/05/25 2302 albuterol 2.5 [...] MD, 1,200 mg at 04/06/25 0950 HYDROcodone-acetaminophen (Haynes) 5-325 mg per tablet 1 tablet, 1 tablet, oral, q4h PRN, Denis Angel MD, 1 tablet at 04/05/25 1312 melatonin tablet 5 mg, 5 mg, oral, Nightly PRN, Meghna Zavaleta, SECONDS HANDLER, 5 mg at 04/05/25 2149 mirtazapine (Remeron) [...] 78 QT Interval 344 QTC CALCULATION(BAZETT) 418 R-[place] 59 T Wave [place] 53 Impression Atrial fibrillation Abnormal ECG When [...] informed consent. he was brought to the candlemaking laborer in a fasting state. The left wrist area was prepped and draped in usual fashion. Micropuncture technique was used for access in the left radial artery. A 6-Bahamian x 11 cm sheath was placed. Verapamil was given through the sheath, and heparin was administered intravenously. The 6-Bahamian JR4 catheter was navigated across the aortic valve over a wire and used to perform left heart catheterization with measurement of pressures. Pullback across the aortic valve was performed with measurement of pressures. Bilateral selective coronary angiography was then performed using 6-Bahamian JL4 and JR4 diagnostic catheters. Catheters were removed. Heparin was administered intravenously and therapeutic ACT was confirmed during the rest of the procedure. A 6-Bahamian XB 3.5 guiding catheter was advanced and used to engage the left coronary ostium. Baseline FAMILIA flow was 3. A GeoGraffitiwater coronary guide wire was advanced to the [...] LVEF 55% based on transthoracic echocardiogram in [facility] on 03/29/2025 Paroxysmal atrial fibrillation, CHADSVASC of [...] least in part, completed using a voice cinnamon grinder system. Every effort was made to ensure accuracy. However, inadvertent computerized cinnamon grinder errors may be present. Huber Cardenas MD PGY-4 Lcac Radar Operator/Navigator [facility] 04-16-2025 Instructions Formatting of th is note might be different from the original. Your surgery/procedure is scheduled at [facility] on 04/30/2025 at 1130 Arrival Time 0930 [facility] Address: [address] [place] [address]. [address] Parking lot [facility]. Report to the Entrance B. Check in at the information desk the surgery. The waiting room located on the second floor. If you have any questions prior to surgery, please call Pre-Admission Clinic at [phone] between 7:30 am and 4:30 pm Tuesday through Tuesday. If you have questions the morning of surgery, please call the Pre-op Department at [phone]. Notify your SURGEON if you develop any [...] piercing's, hair extensions that contain metal, nail barbadian, make-up, and contact lens. You may brush [...] RIGHTS AND RESPONSIBILITIES As a patient at [facility], you have the right to: Receive medical care and be informed of who is taking care of you Be treated with dignity and respect Have a family member/community health program representative of choice and your physician notified of your admission Receive information and actively participate in decisions about your care and treatment Refuse care, treatment and services Decide who may provide your support and speak for you Access shinto and spiritual services Participate in ethical issues [...] of hospital charges and payment methods Patient/patient community health program representative responsibilities are to: Provide information about [...] RIGHTS AND RESPONSIBILITIES As a patient at [facility], you have the right to: Receive medical care and be informed of who is taking care of you Be treated with dignity and respect Have a family member/community health program representative of choice and your physician notified of your admission Receive information and actively participate in decisions about your care and treatment Refuse care, treatment and services Decide who may provide your support and speak for you Access shinto and spiritual services Participate in ethical issues [...] of hospital charges and payment methods Patient/patient community health program representative responsibilities are to: Provide information about [...] Control department if you have any questions. [facility] 04-16-2025 Miscellaneous Notes Fax sent to [facility] requesting information for preop Your surgery/procedure is scheduled at [facility] on 04/30/2025 at 1130 Arrival Time 0930 [facility] Address: [address] [place] [address] Park in [address]1 Parking lot located [facility]. Report to the Entrance B. Check in at the information desk the surgery. The waiting room located on the second floor. If you have any questions prior to surgery, please call Pre-Admission Clinic at [phone] between 7:30 am and 4:30 pm Tuesday through Tuesday. If you have questions the morning of surgery, please call the Pre-op Department at [phone]. Notify your SURGEON if you develop any [...] piercing's, hair extensions that contain metal, nail barbadian, make-up, and contact lens. You may brush [...] RIGHTS AND RESPONSIBILITIES As a patient at [facility], you have the right to: Receive medical care and be informed of who is taking care of you Be treated with dignity and respect Have a family member/community health program representative of choice and your physician notified of your admission Receive information and actively participate in decisions about your care and treatment Refuse care, treatment and services Decide who may provide your support and speak for you Access shinto and spiritual services Participate in ethical issues [...] of hospital charges and payment methods Patient/patient community health program representative responsibilities are to: Provide information about [...] RIGHTS AND RESPONSIBILITIES As a patient at [facility], you have the right to: Receive medical care and be informed of who is taking care of you Be treated with dignity and respect Have a family member/community health program representative of choice and your physician notified of your admission Receive information and actively participate in decisions about your care and treatment Refuse care, treatment and services Decide who may provide your support and speak for you Access shinto and spiritual services Participate in ethical issues [...] of hospital charges and payment methods Patient/patient community health program representative responsibilities are to: Provide information about [...] have any questions. documented in this encounter [facility] 04-16-2025 Nurse Note Fax sent to [facility] requesting information for preop [facility] 04-11-2025 Telephone encounter Note Requested Prescriptions Signed Prescriptions Disp Refills HYDROcodone-acetaminophen (Haynes) 5-325 MG tablet 180 tablet 0 Sig: Take 1 tablet by mouth every 4 (four) hours if needed for severe pain Authorizing Provider: CAROL MEYERS [facility] 04-11-2025 Miscellaneous Notes Requested Prescriptions Signed Prescriptions Disp Refills HYDROcodone-acetaminophen (Haynes) 5-325 MG tablet 180 tablet 0 Sig: Take 1 tablet by mouth every 4 (four) hours if needed for severe pain Authorizing Provider: CAROL MEYERS documented in this encounter [facility] 04-06-2025 Note Pt has DC orders. Ph oned [facility] and pt has a paid bed hold, they can accept pt today. Faxed updates and AVS/DC order to [facility]. Transfer packet done. [facility] will transport pt at 8:45pm. Updated Lynn MCLEAN and provided phone number to call [facility] with report. [facility] 04-06-2025 Note Attestation with edits by Evelin Renteria MD at 04/06/2025 11:04 PM I personally saw and examined the patient on the same date of service as resident/fellow Dr Cardenas. I discussed the findings and therapeutic plan with the resident/fellow Dr Cardenas. I agree with the documentation, except for any edits/updates below. Teaching Physician's Revisions: None Evelin Renteria MD, [facility] Cardiology Progress Note Subjective Subjective: Patient was seen and examined. Reported feeling well. No chest pain, or shortness of breath. No abdominal pain, nausea, or vomiting. No orthopnea or paroxysmal nocturnal dyspnea. No lower leg swelling. No acute events overnight. Objective Current Facility-Administered Medications: acetaminophen (Tylenol) tablet 650 mg, 650 mg, oral, q6h PRN, Meghna kl, SECONDS HANDLER, 650 mg at 04/05/25 2302 albuterol 2.5 [...] MD, 1,200 mg at 04/06/25 0950 HYDROcodone-acetaminophen (Haynes) 5-325 mg per tablet 1 tablet, 1 tablet, oral, q4h PRN, Denis Angel MD, 1 tablet at 04/05/25 1312 melatonin tablet 5 mg, 5 mg, oral, Nightly PRN, Meghna Zavaleta, SECONDS HANDLER, 5 mg at 04/05/25 2149 mirtazapine (Remeron) [...] 78 QT Interval 344 QTC CALCULATION(BAZETT) 418 R-[place] 59 T Wave [place] 53 Impression Atrial fibrillation Abnormal ECG When [...] inversion no longer (more content not included)... [facility] 04-05-2025 Note As above [facility] 04-05-2025 Note For now keep blood p ressure below 130/88 and heart rate below 88 follow-up with vascular surgery [facility] 04-05-2025 Note Has history remote h istory of paroxysmal atrial fibrillation currently maintained on diltiazem and aspirin check to the vascular score appear to be 1 for age and 1 for vascular disease patient is not on oral anticoagulation extensive bruising and upcoming surgery will follow-up with traveling inventory associate [facility] 04-05-2025 Note Bronchodilators supp lemental oxygen [facility] 04-05-2025 Note Status post left hea rt cath with drug-eluting stents telemetry dual antiplatelet meds pain control follow-up with cardiology [facility] 04-05-2025 Note Hospital Medicine History and Physical 04/05/2025 12:56 PM THE HOSPITALIST TEAM PREFERS TO USE [employer] App FOR NON-URGENT COMMUNICATION 7AM-7PM. IF I DO NOT RESPOND WITHIN 20 MINUTES OR URGENT MATTERS, PLEASE CALL THROUGH THE PETROLEUM REFINING EQUIPMENT OPERATOR. FROM 7PM-7AM, PLEASE PAGE [phone](COVR). Chief Complaint No chief complaint on file. History of Present Illness Mateo Stearns is an 64 y.o. 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 with the underwent left heart cath with [...] As above COPD (chronic obstructive pulmonary disease) ([facility] Bronchodilators supplemental oxygen Paroxysmal atrial fibrillation ([facility]) Has history remote history of paroxysmal atrial fibrillation currently maintained on diltiazem and aspirin check to the vascular score appear to be 1 for age and 1 for vascular disease patient is not on oral anticoagulation extensive bruising and upcoming surgery will follow-up with traveling inventory associate Thoracic aortic aneurysm, without rupture, unspecified For [...] this hospital stay by a member of [facility]. Past Medical History Past Medical History: Diagnosis Date Aneurysm Atrial fibrillation ([facility] Cancer ([facility]) COPD (chronic obstructive pulmonary disease) ([facility]) Prostate cancer ([facility]) Past Surgical History Past Surgical History: Procedure [...] Smokeless tobacco: Never (more content not included)... [facility] 04-05-2025 Note Patient: Mateo Stearns Procedure Information Date/Time: 04/05/25 0900 Procedure: Coronary angiography (Left) Location: [facility] D[facility] B[facility]LANE / [facility]ULAR [facility] (Cath) Providers: Rene Fajardo MD [...] consented to blood products. Additional Equipment Requests [facility] 03-26-2025 Instructions Formatting of th is note might be different from the original. Your surgery/procedure is scheduled at [facility] on 04/09/2025 at 1000 Arrival Time 0800 [facility] Address: [address] [place] [address] in [address] Parking lot located [facility]. Report to the Entrance B. Check in at the information desk the surgery. The waiting room located on the second floor. If you have any questions prior to surgery, please call Pre-Admission Clinic at [phone] between 7:30 am and 4:30 pm Tuesday through Tuesday. If you have questions the morning of surgery, please call the Pre-op Department at [phone]. Notify your SURGEON if you develop any [...] piercing's, hair extensions that contain metal, nail barbadian, make-up, and contact lens. You may brush [...] RIGHTS AND RESPONSIBILITIES As a patient at [facility], you have the right to: Receive medical care and be informed of who is taking care of you Be treated with dignity and respect Have a family member/community health program representative of choice and your physician notified of your admission Receive information and actively participate in decisions about your care and treatment Refuse care, treatment and services Decide who may provide your support and speak for you Access shinto and spiritual services Participate in ethical issues [...] of hospital charges and payment methods Patient/patient community health program representative responsibilities are to: Provide information about [...] RIGHTS AND RESPONSIBILITIES As a patient at [facility], you have the right to: Receive medical care and be informed of who is taking care of you Be treated with dignity and respect Have a family member/community health program representative of choice and your physician notified of your admission Receive information and actively participate in decisions about your care and treatment Refuse care, treatment and services Decide who may provide your support and speak for you Access shinto and spiritual services Participate in ethical issues [...] of hospital charges and payment methods Patient/patient community health program representative responsibilities are to: Provide information about [...] Control department if you have any questions. [facility] [email or web address] [facility] 03-26-2025 Miscellaneous Notes Fax sent to [facility] for preop information. A message was left with Shantelle at Dr. Piper's office regarding the type and screen and type and cross ordered and what their plan was for that to be drawn. Faxed preop instructions to nursing facility DOS 04/09/2025 at [facility] with Dr. Piper Faxed preop instructions to nursing facility for DOS 04/09/2024 at [facility] with Dr. Piper Your surgery/procedure is scheduled at [facility] on 04/09/2025 at 1000 Arrival Time 0800 [facility] Address: [address] [place] [address] in [address] Parking lot located [facility]. Report to the Entrance B. Check in at the information desk the surgery. The waiting room located on the second floor. If you have any questions prior to surgery, please call Pre-Admission Clinic at [phone] between 7:30 am and 4:30 pm Tuesday through Tuesday. If you have questions the morning of surgery, please call the Pre-op Department at [phone]. Notify your SURGEON if you develop any [...] piercing's, hair extensions that contain metal, nail barbadian, make-up, and contact lens. You may brush [...] RIGHTS AND RESPONSIBILITIES As a patient at [facility], you have the right to: Receive medical care and be informed of who is taking care of you Be treated with dignity and respect Have a family member/community health program representative of choice and your physician notified of your admission Receive information and actively participate in decisions about your care and treatment Refuse care, treatment and services Decide who may provide your support and speak for you Access shinto and spiritual services Participate in ethical issues [...] of hospital charges and payment methods Patient/patient community health program representative responsibilities are to: Provide information about [...] RIGHTS AND RESPONSIBILITIES As a patient at [facility], you have the right to: Receive medical care and be informed of who is taking care of you Be treated with dignity and respect Have a family member/community health program representative of choice and your physician notified of your admission Receive information and actively participate in decisions about your care and treatment Refuse care, treatment and services Decide who may provide your support and speak for you Access shinto and spiritual services Participate in ethical issues [...] of hospital charges and payment methods Patient/patient community health program representative responsibilities are to: Provide information about [...] have any questions. documented in this encounter [facility] 03-26-2025 Nurse Note Fax sent to [facility] for preop information. A message was left with Shantelle at Dr. Piper's office regarding the type and screen and type and cross ordered and what their plan was for that to be drawn. [facility] 03-26-2025 Nurse Note Faxed preop instructions to nursing facility DOS 04/09/2025 at [facility] with Dr. Piper [facility] 03-26-2025 Nurse Note Faxed preop instructions to nursing facility for DOS 04/09/2024 at [facility] with Dr. Piper [facility] 03-15-2025 Note PR Cardiology - [facility] Subjective Mateo Stearns is a [...] endovascular repair by Dr. Sadie Piper at [facility] vascular. Prior medical history is significant for COPD, emphysema [Was admitted with pneumonia to the [facility] in December 2024] and atrial fibrillation. [...] , Rfl: dilT (more content not included)... [facility] 03-07-2025 Evaluation + Plan note Associated Problem(s): [...] on TEVAR with cardiac risk stratification first [facility] 03-07-2025 Miscellaneous Notes Associated Problem(s): Penetrating [...] risk stratification first documented in this encounter [facility] 03-07-2025 History of Presen t illness [...] not taking: Reported on 03/07/2025) iron ps [id number] acid (NIFEREX FORTE) 150-25-1 mg-mcg-mg capsule Take [...] History: Diagnosis Date Anxiety Arthritis Atrial fibrillation ([facility] [facility] COPD (chronic obstructive pulmonary disease) ([facility]) Emphysema of lung ([facility]) Visual impairment glasses Past Surgical History: Past Surgical History: Procedure Laterality Date CARPAL TUNNEL RELEASE Left FOOT FUSION Right shattered heel JOINT REPLACEMENT right hip REPLACEMENT TOTAL JOINT HIP Left 11/15/2017 Performed by Jr Rene Rosenbaum DO at [facility] Social and Family History: Social History [...] Resource Strain: Low Risk (02/28/2024) Received from [facility] Overall Financial Resource Strain (CARDIA) Difficulty of Paying Living Expenses: Not very hard Food Insecurity: No Food Insecurity (03/07/2025) Hunger Screening Food Insecurity - Worry: Never True Food Insecurity - Inability: Never True Transportation Needs: No Transportation Needs (02/28/2024) Received from [facility] PRAPARE - Transportation Lack of Transportation (Medical): No Lack of Transportation (Non-Medical): No Physical Activity: Inactive (02/28/2024) Received from [facility] Exercise Vital Sign Days of Exercise per Week: 0 days Minutes of Exercise per Session: 0 min Stress: No Stress Concern Present (02/28/2024) Received from [facility] [place] of Occupational Health - Occupational Stress Questionnaire Feeling of Stress : Only a little Social Connections: Moderately Isolated (02/28/2024) Received from [facility] Social Connection and Isolation Panel [NHANES] Frequency of Communication with Friends and Family: Three times a week Frequency of Social Gatherings with Friends and Family: Never Attends [employer] Services: Never Active Member of Clubs or Organizations: Yes Attends Club or Organization Meetings: Never Marital Status: Interpersonal Safety: Not At Risk (02/28/2024) Received from [facility] Humiliation, Afraid, Rape, and Kick questionnaire Fear of Current or Ex-Partner: No Emotionally Abused: No Physically Abused: No Sexually Abused: No Housing Instability: Low Risk (02/28/2024) Received from [facility] Housing Stability Vital Sign Unable to Pay [...] Sadie Piper MD, CELSO, RPVI, FSVS, FACS [facility] [employer] This note was created with the assistance of a speech recognition program. While intending to generate a timely document that accurately reflects the content of the visit, no guarantee can be provided that every grammatical or spelling mistake has been or will be identified or corrected. Thank you for your understanding. documented in this encounter [facility] 02-25-2025 Note Gram Stain Evaluation This specimen is of good quality and is acceptable for routine [facility] 02-25-2025 Note [facility] GRAM STAIN EVALUATION bacterial culture. [facility] 02-22-2025 Telephone encounter Note Who is prescribing him reglan and for what reason? Maybe from the cancer doctor??? I am not sure who or why he is getting it. Can you find out a little more about that?? [place] [facility] 02-22-2025 Miscellaneous Notes Who is prescribing him reglan and for what reason? Maybe from the cancer doctor??? I am not sure who or why he is getting it. Can you find out a little more about that?? AVI documented in this encounter [facility] 01-02-2025 History of Present illness Narrative Images [...] Medications (Ophthalmic Agents) Medication Sig Dispense Refill Pdidazbshsx-Tsjtmthk-Cppskqcup 1-0.5-0.075 % solution Administer 1 drop into [...] Do not crush, chew, or split.. HYDROcodone-acetaminophen (Haynes) 5-325 MG tablet pantoprazole (ProtoNix) 40 MG [...] (Other) Past Medical History: Diagnosis Date Alcoholism ([facility]) Atrial fibrillation ([facility]) Azygos lobe Carpal tunnel syndrome, bilateral Centrilobular emphysema ([facility]) Chronic GERD 12/06/2023 Chronic hypoxemic respiratory failure ([facility] Chronic lumbar radiculopathy Collapse of left lung 2015 (L) LUNG COLLAPSE / CHEST TUBE COPD (chronic obstructive pulmonary disease) ([facility]) 2016 COPD / IMFLAMMATION OF LUNG DENIES BLOODBORNE DISEASES Elevated PSA Gout, arthritis History of pneumothorax History of tobacco abuse Hyperlipidemia ([facility]) Lobular atelectasis Neuropathy Prostate cancer ([facility]) Right lower lobe lung mass Scrotal mass [...] @ 11:08 AM Additional Tests Keratometry K1 [place] K2 [place] Right 42.25 2 43.50 92 Left 42.00 [...] +1.50 Type: OTC Manifest Refraction Sphere Cylinder [place] Right Left +3.50 -2.00 094 Final Rx [...] different lens options were explained including the gwn-bx-kdhgkb fees for any upgrades. Intraocular lens (IOL) [...] OS - 02/25. documented in this encounter [facility] 12-12-2024 History of Present illness Narrative Radiation Oncology - Follow Up Note PATIENT NAME: Mateo Stearns PATIENT DIAGNOSIS: Prostate adenocarcinoma, initial PSA 4.46, biopsy [place] score 3 + 3 = 6 (grade [...] by: Severo Dent MD cc: Kathie Sánchez, SECONDS HANDLER ([facility]) [address] [place] [address] No referring provider defined for this encounter. AUA 2 Mona Melvin RN documented in this encounter [facility] 11-26-2024 Note HNO ID: [id number] Author: UMU NICOLAS LSW Service: ? Author Type: Environmental Sampler Type: Progress Notes Filed: 11/26/2024 13:09 Note [...] Services. SUSANNA Sotomayor documented in this encounter [facility] 11-02-2024 Note HNO ID: [id number] Author: eSvero DENT MD Service: ? Author Type: Physician [...] DIAGNOSIS: Prostate adenocarcinoma, initial PSA 4.46, biopsy [place] score 3 + 3 = 6 (grade [...] Severo Dent MD documented in this encounter [facility] 11-02-2024 History of Present illness Narrative [facility] Radiation Oncology Department RADIATION ONCOLOGY - COMPLETION NOTE PATIENT: MATEO SETARNS: 1960 DATES OF TREATMENT: 09/25/24 - 11/02/24 [...] KAYA :37 PM documented in this encounter [facility] 11-02-2024 Note HNO ID: [id number] Author: Severo DENT MD Service: ? Author Type: Physician Type: Progress Notes Filed: 11/08/2024 14:37 Note Text: [facility] Radiation Oncology Department RADIATION ONCOLOGY - COMPLETION NOTE PATIENT: MATEO STEARNS: 1960 DATES OF TREATMENT: 09/25/24 - 11/02/24 DIAGNOSIS: Prostate adenocarcinoma, initial PSA 4.46, biopsy [place] score 3 + 3 = 6 (grade [...] [facility] 10[facility] Note HNO ID: [id number] Author: Severo DENT MD Service: ? Author Type: Physician Type: Progress Notes Filed: 10/29/2024 10:54 Note Text: Radiation Oncology - On Treatment Review (OTR) Note PATIENT NAME: Mateo Stearns PATIENT DIAGNOSIS: Prostate adenocarcinoma, initial PSA 4.46, biopsy [place] score 3 + 3 = 6 (grade [...] Severo Dent MD documented in this encounter [facility] 10-26-2024 Note HNO ID: [id number] Author: UMU NICOLAS LSW Service: ? Author Type: Environmental Sampler Type: Progress Notes Filed: 10/26/2024 10:44 Note Text: SOCIAL WORK FOLLOW UP NOTE: [facility] Date of service:10/26/24 TOPICS ADDRESSED: community resources PLAN: Continue follow up as needed Assigned SW listed in Care Team tab: Yes SW completed and faxed September 2024 mileage reimbursement log to [facility] SUSANNA Sotomayor [facility] 10-26-2024 History of Present illness Narrative SOCIAL WORK FOLLOW UP NOTE: [facility] Date of service:10/26/24 TOPICS ADDRESSED: community resources PLAN: Continue follow up as needed Assigned SW listed in Care Team tab: Yes SW completed and faxed September 2024 mileage reimbursement log to [facility] SUSANNA Sotomayor documented in this encounter [facility] 10-22-2024 Note HNO ID: [id number] Author: Severo DENT MD Service: ? Author Type: Physician Type: Progress Notes Filed: 10/22/2024 10:51 Note Text: Radiation Oncology - On Treatment Review (OTR) Note PATIENT NAME: Mateo Stearns PATIENT DIAGNOSIS: Prostate adenocarcinoma, initial PSA 4.46, biopsy [place] score 3 + 3 = 6 (grade [...] Severo Dent MD documented in this encounter [facility] 10-16-2024 History of Present illness Narrative Associated [...] and his symtpoms documented in this encounter [facility] 10-16-2024 Instructions Kathie Sánchez NP - 10/16/2024 11:00 AM EST Will give you some hand outs on stretching exercises Follow up in November 2024 for recheck documented in this encounter [facility] 10-15-2024 Note HNO ID: [id number] Author: Severo DENT MD Service: ? Author Type: Physician Type: Progress Notes Filed: 10/15/2024 15:22 Note Text: Radiation Oncology - On Treatment Review (OTR) Note PATIENT NAME: Mateo Stearns PATIENT DIAGNOSIS: Prostate adenocarcinoma, initial PSA 4.46, biopsy [place] score 3 + 3 = 6 (grade [...] DIAGNOSIS: Prostate adenocarcinoma, initial PSA 4.46, biopsy [place] score 3 + 3 = 6 (grade [...] Severo Dent MD documented in this encounter [facility] 10-11-2024 Nurse Note Mateo Stearns presents in office today for: Lab Draw only . Ordering Provider: Gopal Dent M.D. Test (s) ordered: CBC Method for obtaining blood: Phlebotomy was performed, accessing left antecubital vein. Needle removed intact. Dressing secured. Patient denies discomfort, dizziness, light-headedness or weakness and left the department without assist. Dayanna Call LPN [facility] 10-11-2024 Nurse Note Mateo Stearns presents in office today for: Lab Draw only . Ordering Provider: Gopal Dent M.D. Test (s) ordered: CBC Method for obtaining blood: Phlebotomy was performed, accessing left antecubital vein. Needle removed intact. Dressing secured. Patient denies discomfort, dizziness, light-headedness or weakness and left the department without assist. Dayanna Call LPN documented in this encounter [facility] 10-08-2024 Note HNO ID: [id number] Author: Severo DENT MD Service: ? Author [...] Severo Dent MD documented in this encounter [facility] 10-04-2024 Nurse Note Mateo Stearns presents in office today for: Lab Draw only . Ordering Provider: Gopal Dent M.D. Test (s) ordered: CBC Method for obtaining blood: Phlebotomy was performed, accessing left antecubital vein. Needle removed intact. Dressing secured. Patient denies discomfort, dizziness, light-headedness or weakness and left the department without assist. Dayanna Call LPN [facility] 10-04-2024 Nurse Note Mateo Stearns presents in office today for: Lab Draw only . Ordering Provider: Gopal Dent M.D. Test (s) ordered: CBC Method for obtaining blood: Phlebotomy was performed, accessing left antecubital vein. Needle removed intact. Dressing secured. Patient denies discomfort, dizziness, light-headedness or weakness and left the department without assist. Dayanna Call LPN documented in this encounter [facility] 10-01-2024 Note HNO ID: [id number] Author: Severo DENT MD Service: ? Author [...] Severo Dent MD documented in this encounter [facility] 09-25-2024 Note HNO ID: [id number] Author: UMU NICOLAS LSW Service: ? Author Type: Environmental Sampler Type: Progress Notes Filed: 09/25/2024 14:02 Note Text: SOCIAL WORK FOLLOW UP NOTE: [facility] Date of service:09/25/24 TOPICS ADDRESSED: community resources PLAN: Continue follow up as needed Assigned SW listed in Care Team tab: Yes SW completed and faxed a mileage reimbursement form on the Patient's behalf to [facility] for the month of August 2024. SUSANNA Sotomayor [facility] 09-25-2024 History of Present illness Narrative SOCIAL WORK FOLLOW UP NOTE: [facility] Date of service:09/25/24 TOPICS ADDRESSED: community resources PLAN: Continue follow up as needed Assigned SW listed in Care Team tab: Yes SW completed and faxed a mileage reimbursement form on the Patient's behalf to [facility] for the month of August 2024. SUSANNA Sotomayor documented in this encounter [facility] 09-25-2024 History of Present illness Narrative Radiation Oncology - On Treatment Review (OTR) Note PATIENT NAME: Mateo Stearns PATIENT DIAGNOSIS: Prostate adenocarcinoma, initial PSA 4.46, biopsy [place] score 3 + 3 = 6 (grade [...] Severo Dent MD documented in this encounter [facility] 09-25-2024 Note HNO ID: [id number] Author: Severo DENT MD Service: ? Author Type: Physician Type: Progress Notes Filed: 09/26/2024 16:56 Note Text: Radiation Oncology - On Treatment Review (OTR) Note PATIENT NAME: Mateo Stearns PATIENT DIAGNOSIS: Prostate adenocarcinoma, initial PSA 4.46, biopsy [place] score 3 + 3 = 6 (grade [...] order pending your approval. Dayanna Call RN [facility] 09-24-2024 Miscellaneous Notes CBC order pending your approval. Dayanna Call RN documented in this encounter [facility] 09-18-2024 Note HNO ID: [id number] Author: UMU NICOLAS LSW Service: ? Author Type: Environmental Sampler Type: Progress Notes Filed: 09/18/2024 14:01 Note Text: SOCIAL WORK FOLLOW UP NOTE: [facility] Date of service:09/18/24 Mateo Stearns [...] illness Narrative SOCIAL WORK FOLLOW UP NOTE: [facility] Date of service:09/18/24 Mateo Stearns [...] appropriate. SUSANNA Sotomayor documented in this encounter [facility] 09-17-2024 History of Present illness Narrative JINNYJOSE ANGEL MARSHALLHEMA Payan [id number] 09/17/2024 [facility] Radiation Oncology Department SIMULATION NOTE DATE OF SIMULATION: 09/17/2024 THERAPIST: Sabina Rico MACHINE: Content Circles DIAGNOSIS: Malignant neoplasm of [id number] AREA: PELVIS CONTRAST: None <Select> Consent in [...] MARIUSZ 44:32 PM documented in this encounter [facility] 09-17-2024 History of Present illness Narrative JINNYJOSE ANGELHEMA Payan [id number] 09/17/2024 [facility] Department of Radiation Oncology Treatment Planning Note [...] M.D. 48:19 AM documented in this encounter [facility] 09-17-2024 Note HNO ID: [id number] Author: Severo DENT MD Service: ? Author Type: Physician Type: Progress Notes Filed: 09/18/2024 16:32 Note Text: MATEO STEARNS [id number] 09/17/2024 [facility] Radiation Oncology Department SIMULATION NOTE DATE OF SIMULATION: 09/17/2024 THERAPIST: Sabina Rico MACHINE: Content Circles DIAGNOSIS: Malignant neoplasm of [id number] AREA: PELVIS CONTRAST: None Consent in Epic: [...] [facility] 09-17-[facility]24 Note HNO ID: [id number] Author: Severo DENT MD Service: ? Author Type: Physician Type: Progress Notes Filed: 09/26/2024 08:19 Note Text: MATEO STEARNS [id number] 09/17/2024 [facility] Department of Radiation Oncology Treatment Planning Note [...] on 09/18/24 at 9 am. DARRIUS Mckee [facility] 09-14-2024 Miscellaneous Notes I called and spoke [...] Mona Melvin RN documented in this encounter [facility] 09-14-2024 Telephone encounter Note PT called in [...] Umu- please contact pt. Mona Melvin RN [facility] 09-13-2024 History of Present illness Narrative Associated [...] per dr alves documented in this encounter [facility] 09-11-2024 Nurse Note Radiation Therapy - Patient Education Note PATIENT NAME: Mateo Stearns PATIENT September 11, 2024 [facility] FACILITY/LOCATION: [facility] READINESS TO LEARN Cognitive Ability: Alert [...] need for social work, van service, and orthopaedic physician assistant. Was PED reviewed? No Patient has an Onbody or Implanted device: No Signed by: Dayanna Call RN [facility] 09-11-2024 Nurse Note Radiation Therapy - Patient Education Note PATIENT NAME: Mateo Stearns PATIENT September 11, 2024 [facility] FACILITY/LOCATION: [facility] READINESS TO LEARN Cognitive Ability: Alert [...] need for social work, van service, and orthopaedic physician assistant. Was PED reviewed? No Patient has an Onbody or Implanted device: No Signed by: Dayanna Call RN documented in this encounter [facility] 09-11-2024 History of Present illness Narrative Radiation Oncology - Prostate Cancer Follow-up note PATIENT NAME: Mateo Stearns PATIENT DIAGNOSIS: Prostate adenocarcinoma, initial PSA 4.46, biopsy [place] score 3 + 3 = 6 (grade group 1), clinical stage T1c, N0, M0, stage I [cT1a-c/T2a, N0, M0, PSA <10, GG 1] (AJCC 8th ed.), s/p TRUS Random biopsy. HPI: Patient in for follow-up to discuss treatment options again. Laboratory: iGen6 genomic risk score: 0.43 (low risk) PSA. [...] Severo Dent MD cc: Kathie Sánchez CNP ([facility]) [address] [place] [address] Rufina Vora [address] [place] [address] documented in this encounter [facility] 09-11-2024 Note HNO ID: [id number] Author: Severo DENT MD Service: ? Author [...] follow-up to discuss treatment options again. Laboratory: iGen6 genomic risk score: 0.43 (low risk) PSA. [...] ASSESSMENT/PLAN: Prostate adenocarcinoma, initial PSA 4.46, biopsy [place] score 3 + 3 = 6 (grade [...] by: Severo Dent MD cc: Kathie Sánchez, SECONDS HANDLER ([facility]) [address] [place] [address] Rufina Vora [address] [place] [address] [facility] 09-11-2024 Nurse Note AUA= 3 [facility] 09-11-2024 Nurse Note AUA= 3 documented in this encounter [facility] 09-11-2024 Note Education (RADTSA) MATEO STEARNS ([id number]) 1960 [place] Date Time Provider Department 09/11/24 DAYANNA CALL Reason for Visit: Patient Education [91] Visit Notes: >> Dayanna Call LPN Tue Sep 11, 2024 2:21 PM Status: Signed Radiation Therapy - Patient Education Note PATIENT NAME: Mateo Stearns PATIENT September 11, 2024 [facility] FACILITY/LOCATION: [facility] READINESS TO LEARN Cognitive Ability: Alert [...] need for social work, van service, and orthopaedic physician assistant. Was PED reviewed? No Patient has [...] pulmonary disease) ([facility] No date: Emphysema of lung ([facility]) No date: GERD (gastroesophageal reflux disease) PAST [...] by: Severo Dent MD cc: Kathie Sánchez, SECONDS HANDLER ([facility]) [address] [place] [address] [place] [address] documented in this encounter [facility] 07-12-2024 Note HNO ID: [id number] Author: Severo DENT MD Service: ? Author [...] by: Severo Dent MD cc: Kathie Sánchez, SECONDS HANDLER ([facility]) [address] [place] [address] Rufina Vora [address] [place] [address] [facility] 06-21-2024 Note HNO ID: [id number] Author: Severo DENT MD Service: ? Author Type: Physician Type: Progress Notes Filed: 06/21/2024 13:50 Note Text: Radiation Oncology - Prostate Cancer New Patient/Consult Note PATIENT NAME: Mateo Stearns PATIENT REQUESTING PROVIDER: Dr. Vora DIAGNOSIS: 63 year old male with prostate adenocarcinoma, initial PSA 4.46, biopsy [place] score 3 + 3 = 6 (grade [...] with elevated PSA and prostate biopsy demonstrating [place] 6 adenocarcinoma in 2 cores. (Left lateral [...] on 05/01/2024 with the finding of adenocarcinoma, [place] 6 (3+3) from left lateral base, left [...] ASSESSMENT/PLAN: Prostate adenocarcinoma, initial PSA 4.46, biopsy [place] score 3 + 3 = 6 (grade [...] by: Severo Dent MD cc: Kathie Sánchez, SECONDS HANDLER ([facility]) [address] [place] [address] Rufina Vora [address] [place] [address] documented in this encounter [facility] 06-21-2024 Nurse Note Pacemaker/Defibrillator?N Previous Cancer(s)?N Previous Radiation?N Lupus/Scleroderma?N On body monitoring device?N AUA= 5 [facility] 06-21-2024 Nurse Note Pacemaker/Defibrillator?N Previous Cancer(s)?N Previous Radiation?N Lupus/Scleroderma?N On body monitoring device?N AUA= 5 documented in this encounter [facility] 06-01-2024 Note HNO ID: [id number] Author: AMANDEEP CRISOSTOMO MD Service: ? Author Type: Physician Type: Progress Notes Filed: 06/24/2024 16:18 Note Text: Referring Provider: Chief Complaint: Recently diagnosed CaP HPI: 63 year old male from [place], [place] with a PMHx of COPD (40 pack-year smoker), Afib (on ASA), and GERD diagnosed with CAP in 05/20 which showed 2 cores of [place] 6 disease. He has sever COPD with [...] review Assessment 63 year old male from [place], [place] with a PMHx of COPD (40 pack-year smoker and poor oxygenation status), Afib (on ASA), and GERD diagnosed with CAP in 05/20 which showed 2 cores of [place] 6 disease. Recently had more + cores [...] CaP HPI: 63 year old male from [place], [place] with a PMHx of COPD (40 pack-year smoker), Afib (on ASA), and GERD diagnosed with CAP in 05/20 which showed 2 cores of [place] 6 disease. He has sever COPD with [...] review Assessment 63 year old male from [place], [place] with a PMHx of COPD (40 pack-year smoker and poor oxygenation status), Afib (on ASA), and GERD diagnosed with CAP in 05/20 which showed 2 cores of [place] 6 disease. Recently had more + cores [...] Amandeep Crisostomo MD documented in this encounter [facility] 06-01-2024 Note Patient Outreach (UR OLMN) MATEO STEARNS ([id number]) 1960 M Date Time Provider Department 06/01/24 AMANDEEP CRISOSTOMO UROFATOU During your visit today, we recorded the following information about you: Allergies As of Date: 06/01/2024 (No Known Allergies) Date Reviewed: 06/01/2024 Reviewed by: Garrett Davis MA - Fully Assessed Visit Diagnosis:Screening for genitourinary condition [Z13.89] Order(s):URINALYSIS, REFLEX MICROSCOPIC [[id number]] Order #: [id number]. #:[id number] Prescriptions as of 06/04/2024 - aspirin, enteric [...] under a microscope. This is called the [place] score and the total score can range [...] stress of having cancer. General instructions Take xvjm-wov-tuwyqfp and prescription medicines only as told by your health care provider. If you have to go to the hospital, notify your cancer specialist (oncologist). Keep all follow-up visits. This is important. Where to find more information [place] [employer]: www.cancer.org [place] [employer] of Clinical Oncology: www.cancer.net National Cancer [place]: www.cancer.gov Contact a health care provider if: [...] provider. Document Revised: 02/10/2022 Document Reviewed: 02/10/2022 [employer] Patient Education 2022 [employer]. Follow Up Care 01/02/2024 13:58:04 With:DIONY CHANDLER, Rufina Reina, URL Address: [facility] [address], [place] [address] [phone] When: Unknown [facility] [...] for your post-operative appointment in 1-2 weeks [phone] or [phone] Follow Up Care 03/15/2024 14:41:59 With:Rufina VORA Address: [address] [place] [id number] Business (1) When: Unknown Comments:Keep scheduled appointment [facility] 05-01-2024 Note [id number] [facility] 06-06-2023 Hospital Discharge instructions Patient Education 06/06/2023 [...] under a microscope. This is called the [place] score and the total score can range from 6 10, indicating how likely it is that the cancer will spread (metastasize) to other parts of the body. The higher the score, the greater the likelihood that the cancer will spread. [place] 6 or lower: This indicates that the [...] stress of having cancer. General instructions Take ixpr-rms-qzspbdd and prescription medicines only as told by your health care provider. If you have to go to the hospital, notify your cancer specialist (oncologist). Keep all follow-up visits. This is important. Where to find more information [place] [employer]: www.cancer.org [place] [employer] of Clinical Oncology: www.cancer.net National Cancer [place]: www.cancer.gov Contact a health care provider if: [...] provider. Document Revised: 02/10/2022 Document Reviewed: 02/10/2022 [employer] Patient Education 2022 [employer]. Follow Up Care 04/27/2023 15:15:09 With:DIONY CHANDLER, Rufina Reina, URL Address: [facility] [address] , [place] [address] [phone] When:Within 6 Month(s) Comments:PSA and ANNE-MARIE [facility] 05-17-2023 Hospital Discharge instructions Patient Education [...] for your post-operative appointment in 1-2 weeks [phone] or [phone] Follow Up Care 04/27/2023 15:25:07 With:Rufina VORA Address: [facility] [address] [place] [address]- [facility] (1) When: Unknown Comments:Keep scheduled appointment [facility] 02-07-2023 Hospital Discharge instructions Patient Education [...] if anything looks unusual. Men with a tfqclj-whow-mwxdfy risk for skin cancer may want to see a skin care instructor (soap mixer) for an annual body check. Where to find more information National Cancer [place]: https://www.cancer.gov/about-canc er/screening Centers for Disease Control and Prevention: https://www.cdc.gov/cancer/dcpc/p revention/screening.htm [place] [employer]: https://www.cancer.org/latest-new s/1-alqanr-wfaokhgxt-zgycr-seg-le n.html Contact a health care provider if: [...] 08/11/2017 Document Revised: 08/03/2019 Document Reviewed: 08/11/2017 [employer] Patient Education 2020 [employer] Follow Up Care 12/10/2022 10:33:39 With:DIONY CHANDLER, Rufina Reina, URL Address: [facility] [address], [place] [address]- When: Unknown [facility] [place] 05-17-2022 Hospital Discharge instructions Patient Education 05/17/2022 13:40:29 Epidermal Cyst, Rdds-aa-Qkjy Epidermal Cyst An epidermal cyst is a [...] yourself. Follow these instructions at home: Take eogz-vfr-doanylg and prescription medicines only as told by [...] the cyst, or to remove it. Take cfvn-lsr-sppijsm and prescription medicines only as told by [...] 12/22/2005 Document Revised: 03/06/2020 Document Reviewed: 08/23/2019 [employer] Patient Education 2019 [employer] 04/19/2022 08:23:29 Testicular Self-Exam Testicular Self-Exam [...] 02/20/2002 Document Revised: 03/06/2020 Document Reviewed: 10/10/2017 [employer] Patient Education 2020 [employer] Follow Up Care 03/17/2022 10:53:14 With:DIONY CHANDLER, Rufina Reina, URL Address: [facility] [address] , [place] [address]- When: Unknown [facility] Evaluation + Plan note Future Appointments Appointment Date:06/08/2022 08:45:00 AM Scheduled Provider: Location:[facility] Appointment Type:Urology CALL PAT FT Appointment Date:06/15/2022 09:00:00 AM Scheduled Provider: Location:[facility] Appointment Type:Urology FT [facility] Evaluation + Plan note Future Appointments Appointment Date:08/23/2022 12:30:00 PM Scheduled Provider:Rufina VORA MD Location:[facility] Appointment Type:URO Office Visit [facility] Evaluation + Plan note Future Appointments Appointment Date:06/06/2023 09:45:00 AM Scheduled Provider:[facility]uf[facility]ORA MD [facility] Type:[facility]O Office Visit Diagnostic Tests PendingProstate Histology ([facility]) 05/17/23 [facility] Evaluation + Plan note Future Appointments Appointment Date:12/09/2023 10:45:00 AM Scheduled Provider:Rufina VORA MD Location:[facility] Appointment Type:URO Office Visit Diagnostic Tests PendingPSA Total 06/06/23 [facility] Evaluation + Plan note Future Appointments Appointment Date:05/21/2024 11:30:00 AM Scheduled Provider:Rufina VORA MD [facility] Type:URO Office Visit Diagnostic Tests PendingProstate Histology ([facility]) 05/01/24 [facility] Evaluation + Plan note [facility] Evaluation + Plan note Future Appointments Appointment Date:01/18/2025 10:30:00 AM Scheduled Provider:Rufina VORA MD [facility] Type:URO Office Visit [facility] Evaluation note No Assessments Infor mation Available [facility] Evaluation note Diagnosis Screening for genitourinary condition Screening for other and unspecified genitourinary condition [facility] Diagnosis Malignant neoplasm of prostate (HCC)- Primary Malignant neoplasm of prostate [facility] Diagnosis Prostate cancer (HCC)- Primary Malignant neoplasm of prostate [facility] Diagnosis Malignant neoplasm of prostate (HCC)- Primary Malignant neoplasm of prostate [facility] Diagnosis Encounter for subsequent annual wellness [...] Other chronic pain [facility] Diagnosis Malignant neoplasm of prostate (HCC)- Primary Malignant neoplasm of prostate [facility] Diagnosis Malignant neoplasm of prostate (HCC)- Primary Malignant neoplasm of prostate [facility] Diagnosis Malignant neoplasm of prostate (HCC)- Primary Malignant neoplasm of prostate [facility] Diagnosis Malignant neoplasm of prostate (HCC)- Primary Malignant neoplasm of prostate [facility] Diagnosis Malignant neoplasm of prostate (HCC)- Primary Malignant neoplasm of prostate [facility] Diagnosis Malignant neoplasm of prostate (HCC) Malignant neoplasm of prostate [facility] Diagnosis Malignant neoplasm of prostate (HCC)- Primary Malignant neoplasm of prostate [facility] Diagnosis Malignant neoplasm of prostate [...] neoplasm of prostate documented in this encounter [facility]* Diagnosis Malignant neoplasm of prostate (HCC)- Primary Malignant neoplasm of prostate [facility] Diagnosis Malignant neoplasm of prostate (HCC)- Primary Malignant neoplasm of prostate [facility] Diagnosis Malignant neoplasm of prostate (HCC)- Primary Malignant neoplasm of prostate [facility] Diagnosis Encounter for subsequent annual wellness [...] both eyes- Primary documented in this encounter [facility] HealthcareEvaluation note* Diagnosis Encounter for subsequent annual [...] Primary Nausea alone documented in this encounter [facility]* Diagnosis Penetrating atherosclerotic ulcer of aorta- Primary documented in this encounter [facility]* Diagnosis Penetrating atherosclerotic ulcer of aorta- Primary Penetrating atherosclerotic ulcer of aorta- Primary Penetrating atherosclerotic ulcer of aorta- Primary Penetrating atherosclerotic ulcer of aorta documented in this encounter [facility]* Diagnosis Encounter for subsequent annual [...] chronic pain- Primary documented in this encounter [facility] HealthcareEvaluation [facility]* Diagnosis Penetrating atherosclerotic ulcer of aorta- Primary Penetrating atherosclerotic ulcer of aorta- Primary Thoracic aortic aneurysm documented in this encounter [facility]* Diagnosis Penetrating atherosclerotic ulcer of aorta- Primary Penetrating atherosclerotic ulcer of aorta- Primary Aneurysm of descending thoracic aorta without rupture [facility] N[facility]ative No data available for this section [facility] Hospital Discharge instructions No data available for this section [facility] instructions[facility] on file documented [facility] SystemInstructionsNot on file documented in this [facility] SystemInstructionsNot on file documented in this encounterProHol[facility] SystemInstructionsNot on file documented in this [facility] SystemProgress note No data available for this section [facility] reason for referral (narrative) Referred by: DIONY CHANDLER, Rufina Reina [facility] reason for referral (narrative)* Misc (Routine) - Pending Review Specialty Diagnoses / Procedures Referred By Contac t Referred To Contact Procedures Wound care (specify) Bradley Zuniga APRN-CNP [employer], [address] [place], [place] [id number] Phone: tel:[phone] fax: Referral ID Status Reason Start Date Expiration Date V isits Requested Visits Authorized [id number] Pending Review 05/01/2025 05/01/2026 1 1 * Misc (Routine) - Pending Review Specialty Diagnoses / Procedures Referred By Contac t Referred To Contact Procedures Hygiene Bradley Zuniga APRN-CNP [employer], [address] [place] [address] Phone: tel: fax: Referral ID Status Reason Start Date Expiration Date V isits Requested Visits Authorized [id number] Pending Review 05/01/2025 05/01/2026 1 1 * Misc (Routine) - Pending Review Specialty Diagnoses / Procedures Referred By Contac t Referred To Contact Procedures Adult diet Bradley Zuniga, HAIRSPRING STUDDER-SECONDS HANDLER [address], [address] [place] [address] Phone: tel:+ fax: Referral ID Status Reason Start Date Expiration Date V isits Requested Visits Authorized [id number] Pending Review 05/01/2025 05/01/2026 [address] [facility] Narr[facility]* Auth/Cert Specialty Diagnoses / Procedures Referred By Contac t Referred To Contact Diagnoses Penetrating atherosclerotic ulcer of aorta 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] Procedures ENDOGRAFT BYPASS THORACIC AORTA Sadie Piper MD [address], [address] [place] [address] Phone: tel: fax: Referral ID Status Reason Start Date Expiration Date Visits Re quested Visits Authorized [id number] 1 1 [facility] [email or web address] [facility] Summary Purpose Family History No Family [...] 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 Severo Dent MD [address] [place] [address] [place] [address] Referral ID Status Reason Start Date Expiration Date Visits Requested Visits Authorized [id number] New Request PCP Requested Referral 4 12/16/2024 1 1 Additional Source Comments (unrecognized sect ion and content) No Status Records FoundNo Status Records FoundNo Status Records FoundNo Status Records FoundNo Status Records FoundNo Status Records FoundNo Status Records FoundNo Status Records FoundNo Status Records FoundNo Status Records Found INFORMATION SOURCE (unrecogn ized section and content) DATE CREATED AUTHOR 04/01/2021 [facility] DATE CREATED AUTHOR AUTHOR'S ORGANIZ ATION 04/13/2023 [facility] [place] [facility] DATE CREATED AUTHOR AUTHOR'S ORGANIZ ATION 05/22/[address] [facility] DATE CREATED AUTHOR AUTHOR'S ORGANIZ ATION 12/15/2024 [facility] DATE CREATED AUTHOR AUTHOR'S ORGANIZ ATION 01/04/2025 [facility] DATE CREATED AUTHOR AUTHOR'S ORGANIZ ATION 01/21/2025 [facility] DATE CREATED AUTHOR AUTHOR'S ORGANIZ ATION 05/04/2025 [facility] DATE CREATED AUTHOR AUTHOR'S ORGANIZ ATION 05/14/2025 [facility] DATE CREATED AUTHOR AUTHOR'S ORGANIZ ATION 05/29/2025 [facility] DATE CREATED AUTHOR AUTHOR'S ORGANIZ ATION 06/01/2025 [facility] Care Team (unrecognized sect ion and content) Fine Hairer Relationship Specialty Start Date End Date Curt Lowry MD [address] [place] [address] PCP - General Family Medicine 11/11/23 Kathei Sánchez, EQUINE VET [address] [place] [address] Nurse Practitioner Family Medicine 10/03/23 Fine Hairer Relationship Specialty Start Date End Date Peter Bhat DO PCP - General Family Medicine 05/11/13 Fine Hairer Relationship Specialty Start Date End Date Kathie Sánchez SECONDS HANDLER [address] [place] [address] PCP - General Family Medicine 06/21/24 Fine Hairer Relationship Specialty Start Date End Date Peter Bhat DO PCP - General Family Medicine 05/11/13 06/20/24 Fine Hairer Relationship Specialty Start Date End Date Kathie Sánchez, SECONDS HANDLER [address] [place] [address] PCP - General Family Medicine 06/21/24 Fine Hairer Relationship Specialty Start Date End Date Kathie Sánchez NP [address] [place] [address] PCP - [place] 12/29/23 Curt Lowry MD [address] [place] [address] PCP - General Family Medicine 02/28/24 Kathie Sánchez NP [address] [place] [address] Nurse Practitioner Family Medicine 10/03/23 Kathie Sánchez NP [address] [place] [address] Nurse Practitioner Family Medicine 02/28/24 Fine Hairer Relationship Specialty Start Date End Date Kathie Sánchez, SECONDS HANDLER [address] [place] [address] PCP - General Family Medicine 06/21/24 Fine Hairer Relationship Specialty Start Date End Date Kathie Sánchez NP [address] [place] [address] PCP - [place] LAFLEUR 12/29/23 Curt Lowry MD [address] [place] [address] PCP - General Family Medicine 02/28/24 Kathie Sánchez NP [address] [place] [address] Nurse Practitioner Family Medicine 10/03/23 Kathie Sánchez NP [address] [place] [address] Nurse Practitioner Family Medicine 02/28/24 Fine Hairer Relationship Specialty Start Date End Date Kathie Sánchez NP [address] [place] [address] PCP - [place] LAFLEUR 12/29/23 Curt Lowry MD [address] [place] [address] PCP - General Family Medicine 02/28/24 Kathie Sánchez NP [address] [place] [address] Nurse Practitioner Family Medicine 10/03/23 Kathie Sánchez NP [address] [place] [address] Nurse Practitioner Family Medicine 02/28/24 Fine Hairer Relationship Specialty Start Date End Date Kathie Sánchez CNP [address] [place] [address] PCP - General Family Medicine 06/21/24 Fine Hairer Relationship Specialty Start Date End Date Kathie Sánchez CNP [address] [place] [address] PCP - General Family Medicine 06/21/24 Fine Hairer Relationship Specialty Start Date End Date Kathie Sánchez CNP [address] [place] [address] PCP - General Family Medicine 06/21/24 Umu Nicolas, OCEAN BIOLOGIST Environmental Sampler 09/18/24 Fine Hairer Relationship Specialty Start Date End Date Kathie Sánchez CNP [address] [place] [address] PCP - General Family Medicine 06/21/24 Umu Nicolas LSW Environmental Sampler 09/18/24 Fine Hairer Relationship Specialty Start Date End Date Kathie Sánchez CNP [address] [place] [address] PCP - General Family Medicine 06/21/24 Umu Nicolas, OCEAN BIOLOGIST Environmental Sampler 09/18/24 Fine Hairer Relationship Specialty Start Date End Date Kathie Sánchez CNP [address] [place] [address] PCP - General Family Medicine 06/21/24 Umu Nicolas, OCEAN BIOLOGIST Environmental Sampler 09/18/24 Fine Hairer Relationship Specialty Start Date End Date Kathie Sánchez CNP [address] [place] [address] PCP - General Family Medicine 06/21/24 Umu Nicolas, OCEAN BIOLOGIST Environmental Sampler 09/18/24 Fine Hairer Relationship Specialty Start Date End Date Kathie Sánchez, SECONDS HANDLER [address] [place] [address] PCP - General Family Medicine 06/21/24 Umu Nicolas, OCEAN BIOLOGIST Environmental Sampler 09/18/24 Fine Hairer Relationship Specialty Start Date End Date Kathie Sánchez CNP [address] [place] [address] PCP - General Family Medicine 06/21/24 Umu Nicolas, OCEAN BIOLOGIST Environmental Sampler 09/18/24 Fine Hairer Relationship Specialty Start Date End Date Kathie Sánchez, SECONDS HANDLER [address] [place] [address] PCP - General Family Medicine 06/21/24 Umu Nicolas, OCEAN BIOLOGIST Environmental Sampler 09/18/24 Fine Hairer Relationship Specialty Start Date End Date Kathie Sánchez, EQUINE VET [address] [place] [address] PCP - [place] LAFLEUR 12/29/23 Curt Lowry MD [address] [place] [address] PCP - General Family Medicine 02/28/24 Kathie Sánchez NP [address] [place] [address] Nurse Practitioner Family Medicine 10/03/23 Kathie Sánchez NP [address] [place] [address] Nurse Practitioner Family Medicine 02/28/24 Fine Hairer Relationship Specialty Start Date End Date Kathie Sánchez CNP [address] [place] [address] PCP - General Family Medicine 06/21/24 Umu Nicolas LSW Environmental Sampler 09/18/24 Fine Hairer Relationship Specialty Start Date End Date Kathie Sánchez CNP [address] [place] [address] PCP - General Family Medicine 06/21/24 Umu Nicolas, OCEAN BIOLOGIST Environmental Sampler 09/18/24 Fine Hairer Relationship Specialty Start Date End Date Kathie Sánhcez SECONDS HANDLER [address] [place] [address] PCP - General Family Medicine 06/21/24 Umu Nicolas, OCEAN BIOLOGIST Environmental Sampler 09/18/24 Fine Hairer Relationship Specialty Start Date End Date Kathie Sánchez NP [address] [place] [address] PCP - [place] LAFLEUR 12/29/23 Curt Lowry MD [address] [place] [address] PCP - General Family Medicine 02/28/24 Kathie Sánchez NP [address] [place] [address] Nurse Practitioner Family Medicine 10/03/23 Kathie Sánchez NP [address] [place] [address] Nurse Practitioner Family Medicine 02/28/24 Fine Hairer Relationship Specialty Start Date End Date Kathie Sánchez NP [address] [place] [address] PCP - [place] LAFLEUR 12/29/23 Curt Lowry MD [address] [place] [address] PCP - General Family Medicine 02/28/24 Kathie Sánchez NP [address] [place] [address] Nurse Practitioner Family Medicine 10/03/23 Kathie Sánchez NP [address] [place] [address] Nurse Practitioner Family Medicine 02/28/24 Fine Hairer Relationship Specialty Start Date End Date Kathie Sánchez NP [address] [place] [address] PCP - [place] LAFLEUR 12/29/23 Curt Lowry MD [address] [place] [address] PCP - General Family Medicine 02/28/24 Kathie Sánchez NP [address] [place] [address] Nurse Practitioner Family Medicine 10/03/23 Kathie Sánchez EQUINE VET [address] [place] [address] Nurse Practitioner Family Medicine 02/28/24 Fine Hairer Relationship Specialty Start Date End Date Kathie Sánchez CNP [address] [place] [address] PCP - General Family Medicine 06/21/24 Umu Nicolas LSW Environmental Sampler 09/18/24 Fine Hairer Relationship Specialty Start Date End Date Kathie Sánchez CNP [address] [place] [address] PCP - General Family Medicine 06/21/24 Umu Nicolas LSW Environmental Sampler 09/18/24 Fine Hairer Relationship Specialty Start Date End Date Kathie Sánchez SECONDS HANDLER [address] [place] [address] PCP - General Family Medicine 06/21/24 Umu Nicolas LSW Environmental Sampler 09/18/24 Fine Hairer Relationship Specialty Start Date End Date Kathie Sánchez CNP [address] [place] [address] PCP - General Family Medicine 06/21/24 Umu Nicolas LSW Environmental Sampler 09/18/24 Fine Hairer Relationship Specialty Start Date End Date Kathie Sánchez CNP [address] [place] [address] PCP - General Family Medicine 06/21/24 Umu Nicolas LSW Environmental Sampler 09/18/24 Fine Hairer Relationship Specialty Start Date End Date Kathie Sánchez SECONDS HANDLER [address] [place] [address] PCP - General Family Medicine 06/21/24 Umu Nicolas LSW Environmental Sampler 09/18/24 Fine Hairer Relationship Specialty Start Date End Date Kathie Sánchez NP [address] [place] [address] PCP - [place] LAFLEUR 12/29/23 Curt Lowry MD [address] [place] [address] PCP - General Family Medicine 02/28/24 Kathie Sánchez NP [address] [place] [address] Nurse Practitioner Family Medicine 10/03/23 Kathie Sánchez NP [address] [place] [address] Nurse Practitioner Family Medicine 02/28/24 Lissa Garza MA Family Medicine 12/05/24 Fine Hairer Relationship Specialty Start Date End Date Kathie Sánchez NP [address] [place] [address] PCP - [place] LAFLEUR 12/29/23 Curt Lowry MD [address] [place] [address] PCP - General Family Medicine 02/28/24 Kathie Sánchez NP [address] [place] [address] Nurse Practitioner Family Medicine 10/03/23 Kathie Sánchez NP [address] [place] [address] Nurse Practitioner Family Medicine 02/28/24 Lissa Garza MA Family Medicine 12/05/24 Andrade Pendleton OD [address] [place] [address] Referring Physician Optometry 01/02/25 Fine Hairer Relationship Specialty Start Date End Date Kathie Sánchez NP [address] [place] [address] PCP - [place] LAFLEUR 12/29/23 Curt Lowry MD [address] [place] [address] PCP - General Family Medicine 02/28/24 Kathie Sánchez NP [address] [place] [address] Nurse Practitioner Family Medicine 10/03/23 Kathie Sánchez NP [address] [place] [address] Nurse Practitioner Family Medicine 02/28/24 Lissa Garza MA Family Medicine 12/05/24 Andrade Pendleton, OD [address] [place] [address] Referring Physician Optometry 01/02/25 Fine Hairer Relationship Specialty Start Date End Date Kathie Sánchez NP [address] [place] [address] PCP - [facility] 12/29/23 Curt Lowry MD [address] [place] [address] PCP - General Family Medicine 02/28/24 Kathie Sánchez NP [address] [place] [address] Nurse Practitioner Family Medicine 10/03/23 Kathie Sánchez NP [address] [place] [address] Nurse Practitioner Family Medicine 02/28/24 Lissa Garza MA Family Medicine 12/05/24 Andrade Pendleton, OD [address] [place] [address] Referring Physician Optometry 01/02/25 Fine Hairer Relationship Specialty Start Date End Date Kathie Sánchez NP [address] [place] [address] PCP - [place] LAFLEUR 12/29/23 Curt Lowry MD [address] [place] [address] PCP - General Family Medicine 02/28/24 Kathie Sánchez NP [address] [place] [address] Nurse Practitioner Family Medicine 10/03/23 Kathie Sánchez NP [address] [place] [address] Nurse Practitioner Family Medicine 02/28/24 Lissa Garza MA Family Medicine 12/05/24 Andrade Pendleton OD [address] [place] [address] Referring Physician Optometry 01/02/25 Fine Hairer Relationship Specialty Start Date End Date Kathie Sánchez NP [address] [place] [address] PCP - [place] LAFLEUR 12/29/23 Curt Lowry MD [address] [place] [address] PCP - General Family Medicine 02/28/24 Kathie Sánchez NP [address] [place] [address] Nurse Practitioner Family Medicine 10/03/23 Kathie Sánchez NP [address] [place] [address] Nurse Practitioner Family Medicine 02/28/24 Lissa Garza MA Family Medicine 12/05/24 Andrade Pendleton OD [address] [place] [address] Referring Physician Optometry 01/02/25 Fine Hairer Relationship Specialty Start Date End Date Diana Bush MD [address] [place] [address] PCP - General Family Medicine 06/07/19 Fine Hairer Relationship Specialty Start Date End Date Diana Bush MD [address] [place] [address] PCP - General Family Medicine 06/07/19 Fine Hairer Relationship Specialty Start Date End Date Kathie Sánchez NP [address] [place] [address] PCP - [place] LAFLEUR 12/29/23 Curt Lowry MD [address] [place] [address] PCP - General Family Medicine 02/28/24 Kathie Sánchez NP [address] [place] [address] Nurse Practitioner Family Medicine 10/03/23 Kathie Sánchez NP [address] [place] [address] Nurse Practitioner Family Medicine 02/28/24 Andrade Pendleton, OD [address] [place] [address] Referring Physician Optometry 01/02/25 Fine Hairer Relationship Specialty Start Date End Date Diana Bush MD [address] [place] [address] PCP - General Family Medicine 06/07/19 Fine Hairer Relationship Specialty Start Date End Date Curt Lowry MD [address] [place] [address] PCP - General Family Medicine 02/28/24 Kathie Sánchez, EQUINE VET [address] [place] [address] Nurse Practitioner Family Medicine 10/03/23 Kathie Sánchez, EQUINE VET [address] [place] [address] Nurse Practitioner Family Medicine 02/28/24 Andrade Pendleton, DUNIA [address] [place] [address] Referring Physician Optometry 01/02/25 Fine Hairer Relationship Specialty Start Date End Date Diana Bush MD [address] [place], [place] [id number] PCP - General Family Medicine 06/07/19 Fine Hairer Relationship Specialty Start Date End Date Diana Bush MD [address] [address] PCP - General Family Medicine 06/07/19 Fine Hairer Relationship Specialty Start Date End Date Curt Lowry MD [address] [place] [phone] PCP - General Family Medicine 05/27/25 Fine Hairer Relationship Specialty Start Date End Date Kathie Sánchez NP [address] [place] [phone] PCP - Crow LAFLEUR 12/29/23 Kathie Sánchez NP [address] [place] [phone] Nurse Practitioner Family Medicine 10/03/23 Kathie Sánchez NP [address] [place] [phone] Nurse Practitioner Family Medicine 02/28/24 Andrade Pendleton OD [address] [place] [phone] Referring Physician Optometry 01/02/25 Source Comments (unrecognize d section and content) In the event this informatio n is protected by the Federal Confidentiality of Alcohol and Drug Abuse Patient Records regulations: The Federal rules restrict any use of the information to criminally investigate or prosecute any alcohol or drug abuse patient.TrihealthIn the event this information is protected by the Federal Confidentiality of Alcohol and Drug Abuse Patient Records regulations: The Federal rules restrict any use of the information to criminally investigate or prosecute any alcohol or drug abuse patient.TrihealthIn the event this information is protected by the Federal Confidentiality of Alcohol and Drug Abuse Patient Records regulations: The Federal rules restrict any use of the information to criminally investigate or prosecute any alcohol or drug abuse patient.TrihealthIn the event this information is protected by the Federal Confidentiality of Alcohol and Drug Abuse Patient Records regulations: The Federal rules restrict any use of the information to criminally investigate or prosecute any alcohol or drug abuse patient.TrihealthIn the event this information is protected by the Federal Confidentiality of Alcohol and Drug Abuse Patient Records regulations: The Federal rules restrict any use of the information to criminally investigate or prosecute any alcohol or drug abuse patient.TrihealthIn the event this information is protected by the Federal Confidentiality of Alcohol and Drug Abuse Patient Records regulations: The Federal rules restrict any use of the information to criminally investigate or prosecute any alcohol or drug abuse patient.TrihealthIn the event this information is protected by the Federal Confidentiality of Alcohol and Drug Abuse Patient Records regulations: The Federal rules restrict any use of the information to criminally investigate or prosecute any alcohol or drug abuse patient.TrihealthIn the event this information is protected by the Federal Confidentiality of Alcohol and Drug Abuse Patient Records regulations: The Federal rules restrict any use of the information to criminally investigate or prosecute any alcohol or drug abuse patient.TrihealthIn the event this information is protected by the Federal Confidentiality of Alcohol and Drug Abuse Patient Records regulations: The Federal rules restrict any use of the information to criminally investigate or prosecute any alcohol or drug abuse patient.TrihealthIn the event this information is protected by the Federal Confidentiality of Alcohol and Drug Abuse Patient Records regulations: The Federal rules restrict any use of the information to criminally investigate or prosecute any alcohol or drug abuse patient.TrihealthIn the event this information is protected by the Federal Confidentiality of Alcohol and Drug Abuse Patient Records regulations: The Federal rules restrict any use of the information to criminally investigate or prosecute any alcohol or drug abuse patient.TrihealthIn the event this information is protected by the Federal Confidentiality of Alcohol and Drug Abuse Patient Records regulations: The Federal rules restrict any use of the information to criminally investigate or prosecute any alcohol or drug abuse patient.TrihealthIn the event this information is protected by the Federal Confidentiality of Alcohol and Drug Abuse Patient Records regulations: The Federal rules restrict any use of the information to criminally investigate or prosecute any alcohol or drug abuse patient.TrihealthIn the event this information is protected by the Federal Confidentiality of Alcohol and Drug Abuse Patient Records regulations: The Federal rules restrict any use of the information to criminally investigate or prosecute any alcohol or drug abuse patient.TrihealthIn the event this information is protected by the Federal Confidentiality of Alcohol and Drug Abuse Patient Records regulations: The Federal rules restrict any use of the information to criminally investigate or prosecute any alcohol or drug abuse patient.TrihealthIn the event this information is protected by the Federal Confidentiality of Alcohol and Drug Abuse Patient Records regulations: The Federal rules restrict any use of the information to criminally investigate or prosecute any alcohol or drug abuse patient.TrihealthIn the event this information is protected by the Federal Confidentiality of Alcohol and Drug Abuse Patient Records regulations: The Federal rules restrict any use of the information to criminally investigate or prosecute any alcohol or drug abuse patient.TrihealthIn the event this information is protected by the Federal Confidentiality of Alcohol and Drug Abuse Patient Records regulations: The Federal rules restrict any use of the information to criminally investigate or prosecute any alcohol or drug abuse patient.TrihealthIn the event this information is protected by the Federal Confidentiality of Alcohol and Drug Abuse Patient Records regulations: The Federal rules restrict any use of the information to criminally investigate or prosecute any alcohol or drug abuse patient.TrihealthIn the event this information is protected by the Federal Confidentiality of Alcohol and Drug Abuse Patient Records regulations: The Federal rules restrict any use of the information to criminally investigate or prosecute any alcohol or drug abuse patient.TrihealthIn the event this information is protected by the Federal Confidentiality of Alcohol and Drug Abuse Patient Records regulations: The Federal rules restrict any use of the information to criminally investigate or prosecute any alcohol or drug abuse patient.TrihealthIn the event this information is protected by the Federal Confidentiality of Alcohol and Drug Abuse Patient Records regulations: The Federal rules restrict any use of the information to criminally investigate or prosecute any alcohol or drug abuse patient.TrihealthIn the event this information is protected by the Federal Confidentiality of Alcohol and Drug Abuse Patient Records regulations: The Federal rules restrict any use of the information to criminally investigate or prosecute any alcohol or drug abuse patient.TrihealthIn the event this information is protected by the Federal Confidentiality of Alcohol and Drug Abuse Patient Records regulations: The Federal rules restrict any use of the information to criminally investigate or prosecute any alcohol or drug abuse patient.TrihealthIn the event this information is protected by the Federal Confidentiality of Alcohol and Drug Abuse Patient Records regulations: The Federal rules restrict any use of the information to criminally investigate or prosecute any alcohol or drug abuse patient.TrihealthIn the event this information is protected by the Federal Confidentiality of Alcohol and Drug Abuse Patient Records regulations: The Federal rules restrict any use of the information to criminally investigate or prosecute any alcohol or drug abuse patient.[facility] Reason for Visit (unrecogniz ed section and content) Reason Comments Consult Reason Comments New Patient Elevated PSA Reason Comments Prostate Cancer Reason Comments Patient Education Reason Comments Financial Questions Reason Onset Date Comments Simulation Request Form 09/17/2024 Reason Comments Orders CBC Reason Comments Radiotherapy On-treatment Visit Reason Comments Cataract Reason Comments Post-op Aneurysm Repair Reason Comments tevar 04-09-25 testing done in [place] angiogram chest 6/ Active and Recently [...] BE BASED ON THE PRIMARY CLINICAL RECORDS. [facility] [employer] [facility]. provides no warranty or guarantee of the accuracy or completeness of information in this document.
--- NOTE | 2025-06-09 05:24 | PC.NURSE ---
Pt arrives from ER accompanied by RN at 0435. Pt arrives on cardizem drip @ 15 ml/hr. Pt's VSS and HR controlled at 88. Pt remains in a NSR at this time. Pt oriented to room and call light. Instructed patient to call out for needs and wants, pt verbalizes understanding. Also instructed patient not to get up on his own, pt verbalizes understanding. Pt given extra pillow for c/o neck pain as well as a urinal. No further needs or requests at this time. Will cont to monitor.
[2025-06-09 07:05] LABS: Hematocrit 32.4 % (42.0-54.0); Hemoglobin 10.3 g/dL (14.0-18.0); Mean Corpuscular HGB Conc 31.8 g/dL (29.9-35.2); Mean Corpuscular Hemoglobin 26.3 pg (25.9-34.0); Mean Corpuscular Volume 82.7 fL (80.0-94.0); Platelet Count 260 10^3/uL (150-450); Red Blood Count 3.92 10^6/uL (4.70-6.10); White Blood Count 7.3 10^3/uL (4.0-11.0)
[2025-06-09 07:37] LABS: Alanine Aminotransferase 107 U/L (16-63); Albumin Globulin Ratio 0.4; Albumin Level 1.9 g/dL (3.4-5.0); Alkaline Phosphatase 74 U/L (46-116); Anion Gap 14.9; Aspartate Amino Transferase 157 U/L (15-37); Blood Urea Nitrogen 15.0 mg/dL (7.0-18.0); Calcium 8.9 mg/dL (8.5-10.1); Carbon Dioxide 26.6 mmol/L (21.0-32.0); Chloride 106 mmol/L (98-107); Estimated GFR (African America >60 (>=60 mL/min/1.73m^2); Estimated GFR (Non-African Ame >60 (>=60 mL/min/1.73m^2); Globulin 4.3 g/dL; Glucose 107 mg/dL (74-106); Magnesium 2.3 mg/dL (1.8-2.4); Potassium 3.5 mmol/L (3.5-5.1); Sodium 144 mmol/L (136-145); Total Protein 6.2 g/dL (6.4-8.2)
--- NOTE | 2025-06-09 08:00 | ECG_ITS ---
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
[2025-06-09] MEDS: POTASSIUM CHLORIDE 10 MEQ ER TABLET 20 MEQ PO (08:12)
[2025-06-09] MEDS: APIXABAN 5 MG TABLET PO ×2 (08:12→21:15)
[2025-06-09] MEDS: CLOPIDOGREL BISULFATE 75 MG TABLET PO (08:12)
[2025-06-09] MEDS: METOPROLOL TARTRATE 25 MG TABLET PO (08:12)
--- NOTE | 2025-06-09 09:31 | PM.HP ---
HPI H&P: HPI History of Present Illness Chief complaint: AFIB, RVR, RIGHT LOBE PNEUMONIA Narrative: Mr. Perrin is a 64-year-old gentleman who was sent from the residential to the emergency room with the complaint of chest pressure. He was found to have A-fib with RVR. Heart rate is 180. Patient was given amiodarone and started on Cardizem drip. Subsequently patient converted to sinus rhythm. Patient also was found to have left-sided basilar pneumonia. Patient denies any chest pain. No abdominal pain, nausea or vomiting. Opioid HPI Opioid Management Most Recent Pain and Opioid Data: Last Pain Scale 5 Today, 05:16 Last Pain Intensity 8 01/16/25, 11:13 Last Pain Assessment Today, 05:16 Last ORT Total Score 0 Today, 05:05 Last ORT Risk Category Low Risk Today, 05:05 Review of Systems ROS Narrative Generalized weakness and fatigue. Patient uses a walker. History of functional decline happened after he had femur fracture. Status of ROS 10 or more systems reviewed and unremarkable except as noted in history and below [facility] Medical History (Updated 06/09/25 @ 09:33 by Ernesto Ortega MD) Closed fracture of neck of right femur with routine healing ?S72.001D - Fracture of unspecified part of neck of right femur, subsequent encounter for closed fracture with routine healing (ICD-10) HTN (hypertension) ?I10 - Essential (primary) hypertension (ICD-10) Paroxysmal atrial fibrillation ?I48.0 - Paroxysmal atrial fibrillation (ICD-10) Declining functional status ?R53.81 - Other malaise (ICD-10) Nausea ?R11.0 - Nausea (ICD-10) Malnutrition ?E46 - Unspecified protein-calorie malnutrition (ICD-10) Anorexia ?R63.0 - Anorexia (ICD-10) Right upper lobe pneumonia ?J18.9 - Pneumonia, unspecified organism (ICD-10) Chronic hypoxic respiratory failure ?J96.11 - Chronic respiratory failure with hypoxia (ICD-10) COPD (chronic obstructive pulmonary disease) ?J44.9 - Chronic obstructive pulmonary disease, unspecified (ICD-10) Closed fracture of proximal end of femur ?S72.009A - Fracture of unspecified part of neck of unspecified femur, initial encounter for closed fracture (ICD-10) Influenza A ?J10.1 - Influenza due to other identified influenza virus with other respiratory manifestations (ICD-10) Fall from standing ?W19.XXXA - Unspecified fall, initial encounter (ICD-10) Upper respiratory infection ?J06.9 - Acute upper respiratory infection, unspecified (ICD-10) Community acquired pneumonia ?J18.9 - Pneumonia, unspecified organism (ICD-10) Thoracic back pain ?M54.6 - Pain in thoracic spine (ICD-10) Enteritis ?K52.9 - Noninfective gastroenteritis and colitis, unspecified (ICD-10) Surgical History S/P bilateral hip replacements ?Z96.643 - Presence of artificial hip joint, bilateral (ICD-10) Family History Mother Family history of CHF (congestive heart failure) Father Family history of COPD (chronic obstructive pulmonary disease) Uncle Family history of cancer Son Family history of diabetes mellitus Social History Within the past year, how often did you have a drink containing alcohol: never Within the past year, how often did you have six or more drinks on one occasion: never Score interpretation: A score less than 4 is consistent with normal alcohol consumption. Smoking status: Former smoker Non-prescribed substance use: denies use Previous occupational history: retired/ disabled Highest level of school completed/degree received: 9th grade Are you now , , , , never or living with a partner: Little interest or pleasure in doing things: not at all Feeling down, depressed, or hopeless: not at all Do you think of yourself as: straight/heterosexual Gender Identity: male Meds Home Medications and Allergies Home Medications ?Medication ?Instructions ?Recorded ?Confirmed ?Type albuterol sulfate 90 mcg/actuation 2 inh inhalation Q4H PRN shortness 01/05/24 06/08/25 History aerosol inhaler of breath or wheezing budesonide-formoterol HFA 160 2 puff inhalation BID 01/05/24 06/08/25 History mcg-4.5 mcg/actuation aerosol inhaler pantoprazole 40 mg tablet,delayed 40 mg PO DAILY 01/05/24 06/08/25 History release roflumilast 500 mcg tablet 500 mcg PO DAILY 01/05/24 06/08/25 History cyclosporine 0.05 % eye drops in a 1 drp ophthalmic (eye) BID 01/14/25 06/08/25 History dropperette albuterol sulfate 2.5 mg/3 mL 2.5 mg (3 mL) inhalation Q6H PRN 01/18/25 06/08/25 Rx (0.083 %) solution for nebulization shortness of breath or wheezing #90 mL metoclopramide HCl 10 mg tablet 10 mg PO Q8H PRN nausea and 02/23/25 06/08/25 History vomiting apixaban 5 mg tablet (Eliquis) 5 mg PO Q12H 06/08/25 06/08/25 History atorvastatin 40 mg tablet 40 mg PO DAILY 06/08/25 06/08/25 History buspirone 10 mg tablet 10 mg PO TID 06/08/25 06/09/25 History clopidogrel 75 mg tablet 75 mg PO DAILY 06/08/25 06/08/25 History fluticasone propionate 50 1 spray intranasal DAILY 06/08/25 06/08/25 History mcg/actuation nasal spray,suspension hydrocodone 5 mg-acetaminophen 325 1 tab PO Q4H PRN pain 06/08/25 06/08/25 History mg tablet mirtazapine 30 mg tablet 30 mg PO DAILY 06/08/25 06/08/25 History tiotropium bromide 2.5 2 inh inhalation Q24H 06/08/25 06/08/25 History mcg/actuation mist for inhalation (Spiriva Respimat) Allergies Allergy/AdvReac Type Severity Reaction Status Date / Time No Known Drug Allergies Allergy Verified 06/08/25 20:51 Exam Constitutional Vital Signs, click to edit/add: Last Vital Signs Temp 98.1 F 06/09/25 07:52 Pulse 78 06/09/25 07:53 Resp 23 H 06/09/25 07:22 BP 117/48 L 06/09/25 07:22 Pulse Ox 94 L 06/09/25 08:47 O2 Del Method Nasal Cannula 06/09/25 08:47 O2 Flow Rate 4 06/09/25 08:47 Results Labs Labs: Short CBC 06/08/25 06/09/25 Range/Units 17:30 06:33 WBC 9.7 7.3 (4.0-11.0) 10^3/uL Hgb 12.5 L 10.3 L (14.0-18.0) g/dL Hct 38.4 L 32.4 L (42.0-54.0) % Plt Count 299 260 (150-450) 10^3/uL BMP 06/08/25 06/09/25 17:30 06:33 Sodium 140 144 Potassium 3.7 3.5 Chloride 100 106 Carbon Dioxide 29.6 26.6 BUN 18.0 15.0 Creatinine 1.23 0.92 Glucose 114 H 107 H Calcium 9.5 8.9 Liver Function 06/08/25 06/09/25 Range/Units 17:30 06:33 Total Bilirubin 0.5 0.3 (0.2-1.0) mg/dL AST 92 H 157 H (15-37) U/L ALT 91 H 107 H (16-63) U/L Alkaline Phosphatase 95 74 (46-116) U/L Albumin 2.3 L 1.9 L (3.4-5.0) g/dL Assessment and Plan Assessment and Plan (1) Sepsis: (2) Pneumonia involving right lung: (3) Atrial fibrillation with rapid ventricular response: (4) Acute and chronic respiratory failure with hypoxia: (5) 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 Echo echocardiogram completed in March 2025 showed normal EF. No significant valvular disease History of A-fib. Patient is on Eliquis Resume Eliquis. Started patient on Cardizem CD 120 mg daily. Elevated troponin, type II high demand secondary to RVR and pneumonia Patient reported that has had stent in his heart before. He is on Plavix as well. Continue Plavix. Continue rate control and anticoagulation. Further needed diagnostic and therapeutic intervention and the timing of these interventions will be deferred to be addressed by cardiology team Large right-sided pneumonia. Suspect aspiration versus healthcare associated pneumonia. Acute on chronic hypoxic respiratory failure patient is on 2 L oxygen at the nursing facility Underlying COPD and previous smoking Requested swallow eval. Start patient on Zosyn and Zithromax Monitor oxygenation level. Blood cultures pending. Cachexia, frailty, muscle wasting, severe protein calorie malnutrition Start patient on Ensure twice a day This will need to be investigated further. Patient may have malabsorption. Patient may have underlying malignancy. This would need to be addressed to rule out underlying malignancy to be handled by PCP postdischarge from acute care. Anemia, no evidence of acute blood loss. Patient will likely require to have anemia workup to be done in the outpatient setting to be handled by PCP in collaboration with other needed outpatient providers. This may include but not limited to EGD, colonoscopy, referral to see hematology and other needed age-appropriate cancer screening. Chronic medical conditions not listed above, incidental findings seen on labs and imaging. These would need to be addressed. Could be addressed when time and condition are appropriate. Could be addressed in the outpatient setting by PCP collaboration with other needed outpatient providers.
[2025-06-09] MEDS: DILTIAZEM HCL 120 MG CAP.ER.24H PO (09:43)
[2025-06-09] MEDS: ROFLUMILAST 500 MCG TABLET PO (09:44)
[2025-06-09] MEDS: PANTOPRAZOLE SODIUM 40 MG TABLET.DR PO (09:44)
[2025-06-09] MEDS: BUSPIRONE HCL 10 MG TABLET PO ×2 (14:12→21:15)
[2025-06-09] MEDS: 0.9 % SODIUM CHLORIDE 1,000 ML 200 ML IV (16:20)
[2025-06-09] MEDS: ACETAMINOPHEN 325 MG TABLET 650 MG PO (18:45)
[2025-06-09] MEDS: IPRATROPIUM/ALBUTEROL SULFATE 3 ML AMPUL.NEB IH (20:27)
[2025-06-09] MEDS: MIRTAZAPINE 15 MG TABLET 30 MG PO (21:14)
[2025-06-09] MEDS: ATORVASTATIN CALCIUM 40 MG TABLET PO (21:15)
[2025-06-10] VITALS (30 sets, daily range): BP systolic 111–126; BP diastolic 64–76; PULSE 77–106; TEMP 36.5–37.1; O2SAT 90–97
[2025-06-10] MEDS: AZITHROMYCIN 500 MG in 0.9 % SODIUM CHLORIDE 250 ML 250 MG IV (01:20)
[2025-06-10] MEDS: PIPERACILLIN SODIUM/TAZOBACTAM 3.375 GM in 0.9 % SODIUM CHLORIDE 50 ML IV (04:01)
[2025-06-10] MEDS: PANTOPRAZOLE SODIUM 40 MG TABLET.DR PO (05:55)
[2025-06-10] MEDS: BUSPIRONE HCL 10 MG TABLET PO ×3 (05:55→21:04)
[2025-06-10 06:00] LABS: Hematocrit 33.8 % (42.0-54.0); Hemoglobin 10.4 g/dL (14.0-18.0); Mean Corpuscular HGB Conc 30.8 g/dL (29.9-35.2); Mean Corpuscular Hemoglobin 26.1 pg (25.9-34.0); Mean Corpuscular Volume 84.7 fL (80.0-94.0); Platelet Count 268 10^3/uL (150-450); Red Blood Count 3.99 10^6/uL (4.70-6.10); White Blood Count 6.1 10^3/uL (4.0-11.0)
[2025-06-10 06:34] LABS: Alanine Aminotransferase 144 U/L (16-63); Albumin Globulin Ratio 0.4; Albumin Level 1.8 g/dL (3.4-5.0); Alkaline Phosphatase 76 U/L (46-116); Anion Gap 14.3; Aspartate Amino Transferase 189 U/L (15-37); Blood Urea Nitrogen 11.0 mg/dL (7.0-18.0); Calcium 8.7 mg/dL (8.5-10.1); Carbon Dioxide 24.1 mmol/L (21.0-32.0); Chloride 109 mmol/L (98-107); Estimated GFR (African America >60 (>=60 mL/min/1.73m^2); Estimated GFR (Non-African Ame >60 (>=60 mL/min/1.73m^2); Globulin 4.2 g/dL; Glucose 83 mg/dL (74-106); Potassium 3.4 mmol/L (3.5-5.1); Sodium 144 mmol/L (136-145); Total Protein 6.0 g/dL (6.4-8.2)
[2025-06-10 06:36] LABS: Thyroid Stimulating Hormone 0.637 uIU/mL (0.358-3.740)
--- NOTE | 2025-06-10 08:00 | ECG_ITS ---
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
--- NOTE | 2025-06-10 08:30 | CM.NOTE ---
Rounds made with Dr. Ortega, no discharge for pt today. Pt verbalizing his wishes not to return to [facility] at discharge. Case Management or SS will return back to speak with pt about discharge planning and his concerns. PT and OT will evaluate pt for further recommendations and discharge planning.
--- NOTE | 2025-06-10 08:40 | SWNOTE1 ---
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
[2025-06-10] MEDS: APIXABAN 5 MG TABLET PO ×2 (08:44→21:00)
[2025-06-10] MEDS: POTASSIUM CHLORIDE 10 MEQ ER TABLET 20 MEQ PO (08:44)
[2025-06-10] MEDS: DILTIAZEM HCL 120 MG CAP.ER.24H PO (08:44)
[2025-06-10] MEDS: ROFLUMILAST 500 MCG TABLET PO (08:44)
[2025-06-10] MEDS: CLOPIDOGREL BISULFATE 75 MG TABLET PO (08:44)
[2025-06-10] MEDS: DOCUSATE SODIUM 100 MG CAPSULE PO (08:54)
[2025-06-10] MEDS: SENNOSIDES 8.6 MG TABLET PO (08:54)
[2025-06-10] MEDS: IPRATROPIUM/ALBUTEROL SULFATE 3 ML AMPUL.NEB IH ×2 (09:11→20:20)
--- NOTE | 2025-06-10 09:16 | SWNOTE1 ---
Udpates sent to Melissa at [facility]. Updates included face sheet, ED note, physician notes, labs, and vitals.
--- NOTE | 2025-06-10 09:27 | PM.PN ---
Progress Note: Subjective Subjective Interval history: Patient is feeling much better. No chest pain. Minimal cough. No abdominal pain, nausea vomiting Exam Narrative Exam Narrative: Wake, alert and coherent. Somewhat disgruntled and unhappy Cachectic and frail in appearance. Bitemporal muscle wasting. Upper and lower extremities muscle wasting and atrophy. Loss of subcutaneous fat. Chest exam reveals diminished breath sounds on the right side and the rhonchi. Heart is regular. Abdomen soft, scaphoid in appearance. Lower extremities no edema. Constitutional Vital Signs, click to edit/add: Last Vital Signs Temp 98.4 F 06/10/25 00:00 Pulse 96 H 06/10/25 09:14 Resp 22 H 06/10/25 07:00 BP 114/73 06/10/25 06:01 Pulse Ox 92 L 06/10/25 09:14 O2 Del Method Nasal Cannula 06/10/25 09:14 O2 Flow Rate 4 06/10/25 09:14 Progress Note: Objective Labs Labs: Short CBC 06/10/25 Range/Units 05:37 WBC 6.1 (4.0-11.0) 10^3/uL Hgb 10.4 L (14.0-18.0) g/dL Hct 33.8 L (42.0-54.0) % Plt Count 268 (150-450) 10^3/uL BMP 06/10/25 05:37 Sodium 144 Potassium 3.4 L Chloride 109 H Carbon Dioxide 24.1 BUN 11.0 Creatinine 0.74 Glucose 83 Calcium 8.7 Liver Function 06/10/25 Range/Units 05:37 Total Bilirubin 0.5 (0.2-1.0) mg/dL AST 189 H (15-37) U/L ALT 144 H (16-63) U/L Alkaline Phosphatase 76 (46-116) U/L Albumin 1.8 L (3.4-5.0) g/dL Progress Note: A&P Assessment and Plan (1) Sepsis: (2) Pneumonia involving right lung: (3) Atrial fibrillation with rapid ventricular response: (4) Acute and chronic respiratory failure with hypoxia: (5) 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 Echo echocardiogram completed in March 2025 showed normal EF. No significant valvular disease History of A-fib. Patient is on Eliquis Resume Eliquis. Started patient on Cardizem CD 120 mg daily. Elevated troponin, type II high demand secondary to RVR and pneumonia Patient reported that has had stent in his heart before. He is on Plavix as well. Patient had stress test in March which showed evidence of apical ischemia Continue Plavix. Continue rate control and anticoagulation. Further needed diagnostic and therapeutic intervention and the timing of these interventions will be deferred to be addressed by cardiology team Large right-sided pneumonia. Suspect aspiration versus healthcare associated pneumonia. Acute on chronic hypoxic respiratory failure patient is on 2 L oxygen at the nursing facility Underlying COPD and previous smoking Requested swallow eval. Start patient on Zosyn and Zithromax MBS if could be done here at [place]. Monitor oxygenation level. Blood cultures pending. Cachexia, frailty, muscle wasting, severe protein calorie malnutrition Start patient on Ensure twice a day This will need to be investigated further. Patient may have malabsorption. Patient may have underlying malignancy. This would need to be addressed to rule out underlying malignancy to be handled by PCP postdischarge from acute care. Anemia, no evidence of acute blood loss. Patient will likely require to have anemia workup to be done in the outpatient setting to be handled by PCP in collaboration with other needed outpatient providers. This may include but not limited to EGD, colonoscopy, referral to see hematology and other needed age-appropriate cancer screening. Elevated liver transaminase. Unknown etiology. No tenderness in the right upper quadrant Could be reactive secondary to a right basilar pneumonia Request hepatitis panel. Request ultrasound of the liver. Chronic medical conditions not listed above, incidental findings seen on labs and imaging. These would need to be addressed. Could be addressed when time and condition are appropriate. Could be addressed in the outpatient setting by PCP collaboration with other needed outpatient providers.
--- NOTE | 2025-06-10 09:30 | US_ITS ---
The [address] [address] Patient Name: MATEO STEARNS MRN: [id number] date: 1960 Sex: M Assigned Patient Location: LAB Current Patient Location: LAB Accession/Order Number: [id number] Exam Date: 06/10/2025 11:06 Report Date: 06/10/2025 11:14 At the request of: NGUYỄN DHILLON MD Procedure: US right upper quadrant LIMITED RIGHT UPPER QUADRANT ABDOMINAL ULTRASOUND CLINICAL HISTORY: Elevated liver transaminase COMPARISON: CT 02/23/2025 Assessment is slightly limited by patient's inability to suspend respiration. The gallbladder is physiologically distended without shadowing calculi, wall thickening or pericholecystic fluid. No intrahepatic biliary dilatation is evident. The common duct is dilated measuring 10 - 11 mm. There are no filling defects within the imaged segment. The common duct was also prominent on the comparison CT. There were no common duct stones at that time. The liver is normal in echogenicity. No intrahepatic masses are seen. There is appropriate hepatopetal flow within the main portal vein. The pancreas is normal in size and contour. Mild prominence of the pancreatic duct is again seen. Cursory evaluation of the right kidney reveals no hydronephrosis or fluid within Peterson's pouch. US/US right upper quadrant IMPRESSION: NO GALLBLADDER PATHOLOGY. CONTINUED PROMINENCE OF THE COMMON AND PANCREATIC DUCTS. NO OTHER ACUTE FINDINGS. Impression dictated by: Tawnya Ramirez M.D. 06/10/2025 11:14 AM Dictation Location: [place] [address] Electronically authenticated by: [id number] Y Date: 06/10/2025 11:14
--- NOTE | 2025-06-10 09:57 | SWNOTE1 ---
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
--- NOTE | 2025-06-10 11:34 | SWNOTE1 ---
Important Message from Medicare reviewed and discussed with patient. Pt. verbalized understanding and signed the form. Original given to patient and copy placed in patient?s chart.
--- NOTE | 2025-06-10 11:34 | SWNOTE1 ---
SW stopped in to speak with pt in regards to discharge planning. Pt is from [facility] intermediate. Pt spoke about having a hard time breathing and that the air conditioner is in his face. SW asked if he has asked to adjust the temperature in room? He voiced it is not there fault, it is how it is set up. Pt voiced he has not been eating and does not plan on it, voiced the food is gross and it even if he eats his stomach can't handle it. Pt also voiced he just can't breathe. He stated he can't get up and ambulate and if he does it is very hard to breathe as well. He stated he is done. He does not want to live this life anymore, he voiced he is not going to get out of there. Pt and SW spoke about hospice. Pt asked about going to a hospice place (facility). SW advised pt that people that go to a hospice facility are likely going to pass within the next few days and SW does not feel at this time pt qualifies to go to hospice inpatient facility. SW let him know that he may qualify to have hospice services coming in to [facility] and they can assist with meds and help with making him comfortable. SW and pt spoke about hospice and going home, but pt does not feel that is possible. At this time SW to speak with physician about having hospice come in and speak with pt. Pt is agreeable. SW spoke to physician in regards to hospice. Physician would like family to be involved at this time in regards to decision making. SW to speak with pt about this. SW spoke to pt and he voiced he does not want his son or daughter involved. He voiced his son was here yesterday and he wants me to keep fighting. Pt voiced he does not want to. At this time SW recommended having physician come back in and speak with pt. Pt agreeable. SW spoke to physician and he will speak with pt.
--- NOTE | 2025-06-10 12:00 | P.CSD_ITS ---
Attending Attestation - Gen Attending Attestation Attestation: examined this patient, performed the alas elements of E&M and di scussed management plan with nursing Attending Addendum Addendum details: Advance care planning and goals of care discussion. Patient requested this conversation take place. Conversation lasted for about 25 minutes Patient has preserved cognition understand conversation related to his health including but not limited to risk, benefits, options, alternatives, life and situation. He was able to ask and answer questions. He was able to recite. Patient stated that he does not want aggressive care. He describes his quality living as poor sitting in a chair at the nursing facility having trouble breathing continuously. Patient stated that he is ready for the Lord to take him anytime. I explained in simple terms the difference between full code, CCA and CC. I explained in basic terms of the process of CPR including chest compressions, shocks, intubation and life support. Patient understood conversation very well. He declined to receive any resuscitative effort. He does not want to receive any aggressive medical treatment. He does not want any more testing or major treatment such as a procedure, surgery or dialysis. He wants care that is intended for comfort and comfort care only. His wishes are aligned with DNRCC status Change CODE STATUS accordingly. Furthermore, patient requested hospice enrollment. He stated that he has had lung cancer before. He stated that he has emphysema and on oxygen chronically He does not want to visit the emergency room any longer hours. He has not been in the hospital anymore. He wants the Lord to take him. I told him that I would respect his wishes and change his CODE STATUS to comfort care as described above however I asked him to take his time before we commit to hospice care. I would start patient on Celexa 10 mg daily to boost his mood. When asking if he wants his daughter and son to get involved in the decision- making process. Patient clearly stated that he does not want his family to get involved. He wants to decide for himself. Physician Time Time Spent Time Spent: More than 15 minutes spent with family
[2025-06-10] MEDS: CITALOPRAM HYDROBROMIDE 20 MG TABLET 10 MG PO (12:11)
[2025-06-10] MEDS: HYDROCODONE/ACET 5-325 MG TABLET 1 TAB PO (12:11)
--- NOTE | 2025-06-10 12:56 | SWNOTE1 ---
Updated physician notes and swallow eval sent to Melissa at [facility].
--- OUTSIDE RECORDS SUMMARY | 2025-06-10 15:04 | XMS_ITS | Encounter Summary ---
Author Organization [facility] Address [address] [place] [address] Care Team Providers Care Mobile Security Architect Name Role Phone Kathie Sánchez NP Unavailable [phone] Kathie Sánchez HOSE TESTER Unavailable [phone] Kathie Sánchez HOSE TESTER Unavailable [phone] Andrade Pendleton OD Unavailable Encounter Details [...] often do you attend chur ch or yarsani services? Never 02/28/2024 Do you belong to any clubs o r organizations such as baptist groups, unions, fraternal or athletic groups, or [...] Recorded Patient Health Questionnaire-2 Score 0 02/28/2024 [facility] - Occupational [...] External Data Provider [facility] F inal Result [facility] documented in this encounter Visit Diagnoses Not on filedocumented in this encounter Additional Health Concerns Assessment Noted Time PHQ-9 Depression Total Score: 2 02/28/20 24 10:39 AM EDT A fall risk assessment has been complete d for the patient 02/28/2024 10:39 AM EDT documented as of this encounter Care Teams Mobile Security Architect Relationship Specialty Start Date End Date Kathie Sánchez NP [address] [place] [address] PCP - Crow LAFLEUR 12/29/23 Kathie Sánchez NP [address] [place] [address] Nurse Practitioner Family Medicine 10/03/23 Kathie Sánchez NP [address] [place] [address] Nurse Practitioner Family Medicine 02/28/24 Andrade Pendleton OD [address] [place] [address] Referring Physician Optometry 01/02/25 documented as of this encounter
--- OUTSIDE RECORDS SUMMARY | 2025-06-10 15:04 | XMS_ITS | Encounter Summary ---
Author Organization [employer] Address [id number] [address] [place] [address] Care Team Providers Care Colorer Machine Name Role Phone Curt De Dios MD Primary Care Provider [phone] Reason for Referral * Specialty Diagnoses / Procedures Referred By Contac t Referred To Contact Vascular Surgery JESSICA OLSEN TOWER [address] [place] [address] Phone: tel: fax: Referral ID Status Reason Start Date Expiration Date Visits Re quested Visits Authorized Encounter Details Date Type Department Care Team (Late st Contact Info) Description 02/22/2025 Orders Only [facility] [address] [place] [address] Spencer Rose MD [address] [place] [address] Social History Tobacco Use Types Packs/Day Years [...] Description 06/18/2025 10:00 AM EDT Support Visit [facility] On [address] [place] [address] 07/02/2025 8:00 AM EDT Hospital Encounter [facility] Surgery [address] [place] [address]. [place] [address] Sadie Piper MD [address], [facility] [address] [place] [address] 07/02/2025 8:00 AM EDT - 07/02/2025 11:00 AM EDT Surgery [address] [place] [address] Sadie Piper MD [address], [facility] [address] [place] [address] ENDOGRAFT BYPASS THORACIC AORTA [[id number] (CPT )] 07/31/2025 10:30 AM EDT Appointment [facility] - CT Imaging [address] [place] [address] Sadie Piper MD [address], [facility] [address] [place] [address] 08/08/2025 9:40 AM EDT Office Visit [facility] Vascular [address] [place] [address] Sadie Piper MD [address], [facility] [address] [place] [address] Scheduled Procedures Name Priority Associated Diagnoses Date/Ti me ENDOGRAFT BYPASS THORACIC AORTA Penetrating atherosclerotic ulcer of aorta Aneurysm of descending thoracic aorta without rupture 07/02/2025 8:00 AM EDT documented as of this encounter Procedures Procedure Name Priority Date/Time Associated Diagnosis Comments AMB REFERRAL TO VASCULAR SURGERY Routine 02/15/2025 9:38 AM EDT documented in this encounter Results * Ambulatory referral to Vascular Surgery (02/15/2025 9:38 AM EDT) us Spencer Rose MD OUTPATIENT REFERRAL ORDERABLE S Final Result Performing Organization Address City/State/[facility] Co de Phone Number MANUALLY TRANSCRIBED RESULTS documented in this encounter Visit Diagnoses Not on filedocumented in this encounter Care Teams Colorer Machine Relationship Specialty Start Date End Date Curt De Dios MD [address] [facility] [place] [address] PCP - General Family Medicine 05/27/25 documented as of this encounter
--- OUTSIDE RECORDS SUMMARY | 2025-06-10 15:05 | XMS_ITS | Encounter Summary ---
Author Organization [facility] Address [address] [place] [address] Care Team Providers Care Inspector Wire Products Name Role Phone Kathie Sánchez NP Unavailable [phone] Curt De Dios MD Primary Care Provider [phone] Kathie Sánchez NP Unavailable [phone] Debra Woods LPN Unavailable Unavailable Curt De Dios MD Primary Care Provider [phone] Kathie Sánchez NP Unavailable [phone] Lissa Garza MA Unavailable [phone] Andrade Pendleton OD Unavailable Encounter Details Date Type Department Care Team (Late st Contact Info) Description 01/18/2024 Orders Only [facility] [address] [place] [address] Kathie Sánchez NP [address] [place] [address] Social History Tobacco Use Types Packs/Day Years [...] Report (01/05/2024 2:21 PM EST) Kathie Sánchez BLENDING MACHINE OPERATOR IN CLINIC/BEDSIDE ORDERABLES Fi nal Result documented in this encounter Visit Diagnoses Not on filedocumented in this encounter Care Teams Inspector Wire Products Relationship Specialty Start Date End Date Curt De Dios MD [address] [place] [address] PCP - General Family Medicine 11/11/23 02/27/24 Kathie Sánchez NP [address] [place] [address] PCP - Crow LAFLEUR 12/29/23 Curt De Dios MD [address] [place] [address] PCP - General Family Medicine 02/28/24 05/01/25 Kathie Sánchez NP [address] [place] [address] Nurse Practitioner Family Medicine 10/03/23 Debra Woods LPN Registered Nurse Family Medicine 02/28/24 02/29/24 Kathie Sánchez NP [address] [place] [address] Nurse Practitioner Family Medicine 02/28/24 Lissa Garza, MIQUEL [address] [place] [address] Family Medicine 12/05/24 03/06/25 Andrade Pendleton OD [address] [place] [address] Referring Physician Optometry 01/02/25 documented as of this encounter
--- OUTSIDE RECORDS SUMMARY | 2025-06-10 15:05 | XMS_ITS | Clinical Summary ---
Author Organization [facility] Address [address] [place], [place] [address] Care Team Providers Care Photographic Editor Name Role Phone Kathie Sánchez Jessika VRIGEN Primary Care Provider [phone] Umu Nicolas Unavailable Unavailable Allergies No known [...] is lower risk 7 06/21/2024 Data from: https://www.neighborhoodatlas.medicine.[facility].edu/. Last address used for calculation [address] [place] [address] 06/21/2024 Sex and Gender Information Value Date [...] 06/21/2024 1:13 PM EDT Plan of Treatment Health Maintenance Due [...] Annual We llness Visit 11/28/2024 Covid-19 Vaccine (5 - 2023-2 5 season) 2025 09/21/2024, 09/25/2022, [...] PSA. 0.8 BLOOD SPECIMEN / Unknown 06/05/2025 [facility] Provider LABORATORY Final Result from Last 3 Months Insurance [employer] ADVANTAGE HMO * Guarantor: Alphonse Rajput Account Type Relation to Patient Date of Phone Billing Address Self Pay Self [id number] [address] Care Teams Photographic Editor Relationship Specialty Start Date End Date Kathie Sánchez, TENNIS CENTRE MANAGER [address] [place] [address] PCP - General Family Medicine 06/21/24 Umu Nicolas LSW Blanket Cutter Hand 09/18/24
--- OUTSIDE RECORDS SUMMARY | 2025-06-10 15:05 | XMS_ITS | Encounter Summary ---
Author Organization [facility] Address [address] [place] [address] Care Team Providers Care Referral Manager Name Role Phone Kathie Sánchez NP Unavailable [phone] Kathie Sánchez MATERIAL PLANNING ANALYST Unavailable [phone] Curt De Dios MD Primary Care Provider [phone] Kathie Sánchez NP Unavailable [phone] Lissa Garza MA Unavailable [phone] Andrade Pendleton OD Unavailable Encounter Details Date Type Department Care Team (Late st Contact Info) Description 01/14/2025 Orders Only [facility] [address] [facility] [place] [address] Althea Ag MD [address] [place] [address] Social History Tobacco Use Types [...] often do you attend chur ch or oriental orthodox services? Never 02/28/2024 Do you belong to any clubs o r organizations such as druze groups, unions, fraternal or athletic groups, or [...] Recorded Patient Health Questionnaire-2 Score 0 02/28/2024 [facility] - [...] place to sleep or slept in a group home (including now)? No 02/28/2024 Sex and Gender [...] documented as of this encounter Care Teams Referral Manager Relationship Specialty Start Date End Date Kathie Sánchez NP [address] [place] [address] PCP - Crow LAFLEUR 12/29/23 Curt De Dios MD [address] [place] [address] PCP - General Family Medicine 02/28/24 05/01/25 Kathie Sánchez NP [address] [place] [address] Nurse Practitioner Family Medicine 10/03/23 Kathie Sánchez NP [address] [place] [address] Nurse Practitioner Family Medicine 02/28/24 Lissa Garza NC [address] [place] [address] Family Medicine 12/05/24 03/06/25 Andrade Pendleton OD [address] [place] [address] Referring Physician Optometry 01/02/25 documented as of this encounter
--- OUTSIDE RECORDS SUMMARY | 2025-06-10 15:05 | XMS_ITS | Encounter Summary ---
Author Organization [facility] Address [address] [place] [address] Care Team Providers Care Carbon Capture Power Plant Manager Name Role Phone Kathie Sánchez SWABBER Unavailable [phone] Kathie Sánchez SWABBER Unavailable [phone] Kathie Sánchez SWABBER Unavailable [phone] Andrade Pendleton OD Unavailable Encounter Details Date Type Department Care Team (Late st Contact Info) Description 06/10/2025 Orders Only [facility] [address] [place] [address] Social History Tobacco Use Types Packs/Day Years [...] often do you attend chur ch or yazidism services? Never 02/28/2024 Do you belong to [...] Recorded Patient Health Questionnaire-2 Score 0 02/28/2024 [facility] - Occupational [...] Procedure Name Priority Date/Time Associated Diagnosis Comments US VENOUS DUPLEX RIGHT UPPER Routine 06/10/2025 11:38 AM EDT XR CHEST 1 VIEW Routine 06/10/2025 9:40 AM EDT documented in this encounter Results * US VENOUS DUPLEX RIGHT UPPER (06/10/2025 11:38 AM EDT) Anatomical Region Laterality Modality Radiographic Veronique ging Ernesto Ortega MD IMG XR PROCEDURES Final Result * XR chest 1 view (06/10/2025 9:40 AM EDT) Anatomical Region Laterality Modality Chest Radiographic Veronique ging [facility] IMG XR PROCEDURES Final Result documented in this encounter Visit Diagnoses Not on filedocumented in this encounter Additional Health Concerns Assessment Noted Time PHQ-9 Depression Total Score: 2 02/28/20 24 10:39 AM EDT A fall risk assessment has been complete d for the patient 02/28/2024 10:39 AM EDT documented as of this encounter Care Teams Carbon Capture Power Plant Manager Relationship Specialty Start Date End Date Kathie Sánchez NP [address] [place] [address] PCP - Crow LAFLEUR 12/29/23 Kathie Sánchez NP [address] [place] [address] Nurse Practitioner Family Medicine 10/03/23 Kathie Sánchez NP [address] [place] [address] Nurse Practitioner Family Medicine 02/28/24 Andrade Pendleton OD [address] [place] [address] Referring Physician Optometry 01/02/25 documented as of this encounter
--- OUTSIDE RECORDS SUMMARY | 2025-06-10 15:05 | XMS_ITS | Encounter Summary ---
Author Organization [facility] Address [address] [place] [address] Care Team Providers Care Food Supervisor Name Role Phone Kathie Sánchez NP Unavailable [phone] Kathie Sánchez NP Unavailable [phone] Kathie Sánchez NP Unavailable [phone] Andrade Pendleton OD Unavailable Encounter Details Date Type Department Care Team (Late st Contact Info) Description 06/10/2025 Abstract [facility] [address] [place] [address] Kathie Sánchez NP [address] [place] [address] Social History Tobacco Use Types Packs/Day Years [...] often do you attend chur ch or lutheran services? Never 02/28/2024 Do you belong to [...] Recorded Patient Health Questionnaire-2 Score 0 02/28/2024 [facility] - Occupational [...] documented as of this encounter Care Teams Food Supervisor Relationship Specialty Start Date End Date Kathie Sánchez NP [address] [place] [address] PCP - Crow LAFLEUR 12/29/23 Kathie Sánchez NP [address] [place] [address] Nurse Practitioner Family Medicine 10/03/23 Kathie Sánchez NP [address] [place] [address] Nurse Practitioner Family Medicine 02/28/24 Andrade Pendleton OD [address] [place] [address] Referring Physician Optometry 01/02/25 documented as of this encounter
--- OUTSIDE RECORDS SUMMARY | 2025-06-10 15:05 | XMS_ITS | Clinical Summary ---
Author Organization [employer] tem Address [id number] [address] [place] [address] Care Team Providers Care Civil Engineering Professor Name Role Phone Curt De Dios MD Primary Care Provider [phone] Allergies No known active allergies Medications albuterol [...] Encounters Date Type Department Care Team Description 06/10/2025 Orders Only [facility] [address] [place] [address] [place] [address] Shantelle Morales Penetrating atherosclerotic ulcer of aorta (Primary Dx); Aneurysm of descending thoracic aorta without rupture 05/30/2025 10:00 AM EDT Office Visit [facility] [place] [address] Sadie Piper MD Penetrating atherosclerotic ulcer of aorta (Primary Dx); Aneurysm of descending thoracic aorta without rupture 05/27/2025 10:59 AM EDT - 05/27/2025 11:59 PM EDT Hospital Encounter [facility] - CT Imaging [address] [place] [address] Sadie Piper MD Penetrating atherosclerotic ulcer of aorta Discharge Disposition: Home 05/27/2025 Travel 04/30/2025 11:56 AM EDT Anesthesia Event [facility] - Surgery [address] [place] [address]. [place] [address] Randell Sawant MD 04/30/2025 11:30 AM EDT - 04/30/2025 2:15 PM EDT Surgery [facility] - Surgery [address] [place] [address]. [place] [address] Sadie Piper MD THORACIC ARTERIOGRAM WITH IVUS 04/30/2025 8:53 AM EDT - 05/01/2025 2:36 PM EDT Hospital Encounter [facility] - [facility] [address]W Acute [address] [place] [address] [place] [address] Sadie Piper MD Discharge Disposition: Usp Facility-Medicare Cert 04/30/2025 Travel 04/17/2025 Documentation [facility] On [address] [address] Indigo Mishra RN 04/17/2025 Travel 04/16/2025 8:00 AM EDT Support Visit [facility] On [address] [address] 04/03/2025 Orders Only [facility] [address] [place] [address] Shantelle Morales Penetrating atherosclerotic ulcer of aorta (Primary Dx) 03/27/2025 Travel 03/26/2025 8:30 AM EDT Support Visit [facility] [place] [address] [place] [address] [place] [address] from Last 3 Months Immunizations Immunization Administration [...] quit drinking 2 years ago; august 2015 [facility] Fit Steps Answer Date Recorded In the past 12 months has [employer], [employer], oil, or water [employer] threatened to shut off services in your [...] 05/30/2025 10:19 AM EDT Plan of Treatment Upcoming Encounters Date Type Department Care Team (Latest Contact Info) Description 06/18/2025 10:00 AM EDT Support Visit [facility] On [address] [place] [address] 07/02/2025 8:00 AM EDT Hospital Encounter [facility] - Surgery [address] [facility] [place] [address] Sadie Piper MD [address], [place] [address] [place] [address] 07/02/2025 8:00 AM EDT - 07/02/2025 11:00 AM EDT Surgery [facility] - Surgery [address] [facility] [place] [address] Sadie Piper MD [address], [address] [address] ENDOGRAFT BYPASS THORACIC AORTA [[id number] (CPT )] 07/31/2025 10:30 AM EDT Appointment [facility] - CT Imaging [address] [place] [address] Sadie Piper MD [address], [address] [address] 08/08/2025 9:40 AM EDT Office Visit [facility] [place] [address] [place] [address] Sadie Piper MD [address], [address] [address] Scheduled Procedures Name Priority Associated Diagnoses Date/Ti me ENDOGRAFT BYPASS THORACIC AORTA Penetrating atherosclerotic ulcer of aorta Aneurysm of descending thoracic aorta without rupture 07/02/2025 8:00 AM EDT Health Maintenance Due Date Last Done Comments [...] progress towards goal: safe transition back to [facility] for long-term care services. Autogenerated Goal Care Plan Autogenerated Problem No Nasima Sharpe Medical Devices Implanted Type Area Food Safety Specialist Device Identifier Shelf Expiration Date Model / Serial / Lot Cup Actb 50mm Pncl Sect Pinn Sector W/Gription 50mm - Sn/A - [id number] Implanted:Qty : 1 on 11/15/2017 by Sylvain Rosenbaum Jr., DO at [facility] Orthopedic Implant Left: Hip DEPUY 08/27/2027 [id number] / N/A / [id number] Stm Fem 160mm 14 Crl Amt Ti Koehler Corail Amt Collar Size 14 - Sn/A - [id number] Implanted:Qty : 1 on 11/15/2017 by Sylvain Rosenbaum Jr., DO at [facility] Orthopedic Implant Left: Hip DEPUY 05/27/2022 [id number] / N/A / [id number] Ins Actb 50mm 32mm +4mm Ntrl Altrx +4 Neut 76iug30et - Sn/A - [id number] Implanted:Qty : 1 on 11/15/2017 by Sylvain Rosenbaum Jr., DO at [facility] Orthopedic Implant Left: Hip DEPUY 08/27/2022 [id number] / N/A / [id number] Hip Dep Pf Spcl Mtl Construct - [id number] Implanted:Qty : 1 on 11/15/2017 by Sylvain Rosenbaum Jr. DO at [facility] Orthopedic Implant Left: Hip DEPUY DEP-17 / / Elmntr Hl Drlc Pncl Hip Mrthn Otho Hole [place] Positive Stop - Sn/A - [id number] Implanted:Qty : 1 on 11/15/2017 by Sylvain Rosenbaum Jr. DO at [facility] Other Implant Left: Hip DEPUY 05/27/2025 [id number] / N/A / [id number] Hd Fem 32mm 32 +5mm Std Articul/Brandon Ball 32 +5 Br - Sn/A - [id number] Implanted:Qty : 1 on 11/15/2017 by Sylvain Rosenbaum Jr., DO at [facility] Other Implant Left: Hip DEPUY 08/27/2022 [id number] / N/A / [id number] Scr Hip Canc Cnn Gription 25mm Pinn Can Bone Screw 6.8qvh40us - Sn/A - [id number] Implanted:Qty : 1 on 11/15/2017 by Sylvain Rosenbaum Jr., DO at [facility] Screw Left: Hip DEPUY 09/27/2027 [id number] / N/A / [id number] Procedures Procedure Name Priority Date/Time Associated Diagnosis [...] ICA HH Routine 04/30/2025 12:22 PM EDT VT ANES ART LINE Routine 04/30/2025 12:17 PM EDT VT AN ELECTIVE ENDOTRACHEAL AIRWAY Routine 04/30/2025 12:11 PM EDT ENDOGRAFT BYPASS THORACIC AORTA 04/30/2025 11:56 AM EDT Penetrating atherosclerotic ulcer of aorta Case Notes SHANTELLE REQ 45W/ 90W PER ILANA 04/11 per MS, 135W, 165T (CMF) [facility] [phone] GENERAL - POSSBLE SPINAL APRIL--[employer] Special Needs [facility] [phone] APRIL--[employer] REPEATED ABORH Routine 04/30/2025 9:57 AM [...] IMG CT ORDERABLES Final Resul t * (ABNORMAL) CBC auto differential (05/01/2025 3:50 AM EDT) Only the most recent of2 resultswithin the time period is included. WBC 8.1 4 - 11 x10E9/L 05/01/2025 4:43 AM EDT [facility] RBC Count 3.80(L) 4.1 - 5.7 X10E12/L 05/01/2025 4:43 AM EDT [facility] Hemoglobin 10.7(L) 13 - 17 g/dL 05/01/2025 4:43 AM EDT [facility] Hematocrit 31.5(L) 39 - 50 % 05/01/2025 4:43 AM EDT [facility] MCV 83 80 - 100 fL 05/01/2025 4:43 AM EDT [facility] MCH 28.2 27 - 34 pg 05/01/2025 4:43 AM EDT [facility] MCHC 34.0 32 - 36 g/dL 05/01/2025 4:43 AM EDT [facility] RDW 15.9(H) 11.5 - 15 % 05/01/2025 4:43 AM EDT [facility] Platelet Count 218 150 - 450 X10E9/L 05/01/2025 4:43 AM EDT [facility] MPV 7.4 7 - 12 fL 05/01/2025 4:43 AM EDT [facility] Neutrophils % 77.2 % 05/01/2025 4:43 AM EDT [facility] Lymphocytes % 15.3 % 05/01/2025 4:43 AM EDT [facility] Monocytes % 7.2 % 05/01/2025 4:43 AM EDT [facility] Eosinophils % 0.0 % 05/01/2025 4:43 AM EDT [facility] Basophils % 0.3 % 05/01/2025 4:43 AM EDT [facility] Neutrophils Absolute (A) 6.3 1.5 - 6.6 10*3/uL 05/01/2025 4:43 AM EDT [facility] Lymphocytes Absolute 1.2 1.0 - 3.5 10*3/uL 05/01/2025 4:43 AM EDT [facility] Monocytes Absolute 0.6 0.0 - 0.9 10*3/uL 05/01/2025 4:43 AM EDT [facility] Eosinophils Absolute 0.0 0.0 - 0.4 10*3/uL 05/01/2025 4:43 AM EDT [facility] Basophils Absolute 0.0 0.0 - 0.2 10*3/uL 05/01/2025 4:43 AM EDT [facility] Differential Type AUTOMATED DIFFERENTIAL 05/01/2025 4:43 AM EDT [facility] Blood Venous blood / Unknown 05/01/2025 3:50 AM EDT 05/01/2025 3:50 AM EDT us Malia Gil MD LAB BLOOD ORDERABLES Final R esult [facility] [address] [place] [address], [place] [phone] * (ABNORMAL) Basic Metabolic Panel (05/01/2025 3:50 AM EDT) Only the most recent of2 resultswithin the time period is included. SODIUM 138 134 - 146 mmol/L 05/01/2025 5:08 AM EDT [facility] POTASSIUM 4.1 3.5 - 5.0 mmol/L 05/01/2025 5:08 AM EDT [facility] CHLORIDE 101 98 - 109 mmol/L 05/01/2025 5:08 AM EDT [facility] CARBON DIOXIDE 29 22 - 32 mmol/L 05/01/2025 5:08 AM EDT [facility] ANION GAP 8 5 - 15 mmol/L 05/01/2025 5:08 AM EDT [facility] BLOOD UREA NITROGEN 22 5 - 27 mg/dL 05/01/2025 5:08 AM EDT [facility] CREATININE 0.66 0.60 - 1.30 mg/dL 05/01/2025 5:08 AM EDT [facility] Comment:METHOD TRACEABLE TO IDGA STANDARD GLUCOSE 145(H) 65 - 99 mg/dL 05/01/2025 5:08 AM EDT [facility] CALCIUM 8.9 8.5 - 10.5 mg/dL 05/01/2025 5:08 AM EDT [facility] EGFR Non-Race Dependent >90 >=60 ml/min/1.7 3sq.m 05/01/2025 5:08 AM EDT [facility] Comment: Reported eGFR is based on the CKD-EPI 2020 equation that does not use a race coefficient. Blood Venous blood / Unknown 05/01/2025 3:50 AM EDT 05/01/2025 3:50 AM EDT us Malia Gil MD LAB BLOOD ORDERABLES Final R esult [facility] [address] [place] [address], [place] [phone] * ABO Rh Repeat (04/30/2025 5:12 PM EDT) Only the most recent of2 resultswithin the time period is included. ABO O 04/30/2025 11:53 PM EDT [facility] RH Positive 04/30/2025 11:53 PM EDT [facility] Blood Venous blood / Unknown 04/30/2025 5:12 PM EDT 04/30/2025 5:12 PM EDT us Sadie Piper MD BLOOD BANK TEST ORDERABLES Fi nal Result [facility] [address] [place] [address], [facility] [address] [place] [address], * (ABNORMAL) Ionized magnesium (04/30/2025 5:11 PM EDT) IONIZED MAGNESIUM 0.33(L) 0.45 - 0.74 mmol/L 04/30/2025 5:37 PM EDT [facility] Blood Venous blood / Unknown 04/30/2025 5:11 PM EDT 04/30/2025 5:11 PM EDT Malia Gil MD LAB BLOOD ORDERABLES Final R esult [facility] [address] [place] [address], * Fluoroscopy track vascular operative (04/30/2025 1:38 PM EDT) Narrative SYSTEMGENERATED, DOCUMENTATION - 04/30/2025 1:39 PM EDT Please refer to the vascular OP note for a dictation on this exam. Sadie Piper MD IMG FLUOROSCOPY ORDERABLES Fi nal Result * (ABNORMAL) POCT ABG Rapid K GLU ICA HH (04/30/2025 12:22 PM EDT) POC Potassium 4.3 3.5 - 5.0 mmol/L 04/30/2025 12:25 PM EDT [facility] POC Glucose 121(H) 65 - 99 mg/dL 04/30/2025 12:25 PM EDT [facility] POC HGB 11.4(L) 13.0 - 17.0 g/dL 04/30/2025 12:25 PM EDT [facility] POC Hematocrit 35(L) 39 - 49 % 04/30/2025 12:25 PM EDT [facility] POC Ionized Calcium 4.7 4.5 - 5.3 mg/dL 04/30/2025 12:25 PM EDT [facility] Sample type Arterial 04/30/2025 12:25 PM EDT [facility] Body Temp 37.00 >=37 C 04/30/2025 12:25 PM EDT [facility] pH, Arterial 7.457(H) 7.350 - 7.450 04/30/2025 12:25 PM EDT [facility] pCO2, Arterial 38.1 35.0 - 45.0 mmHg 04/30/2025 12:25 PM EDT [facility] PO2, Arterial 254(H) 80 - 100 mmHg 04/30/2025 12:25 PM EDT [facility] Base, Excess 3.0(H) 0.0 - 2.0 mmol/L 04/30/2025 12:25 PM EDT [facility] HCO3, Arterial 26.9(H) 22.0 - 26.0 mmol/L 04/30/2025 12:25 PM EDT [facility] %O2 Saturation, Arterial 100.3 >90.0 % 04/30/2025 12:25 PM EDT [facility] Memo's test NA 04/30/2025 12:25 PM EDT [facility] Sample site A LINE 04/30/2025 12:25 PM EDT [facility] Insp. O2 conc. 100.0 % 04/30/2025 12:25 PM EDT [facility] Arterial site (attribute) (Blood, Arterial) 04/30/2025 12:22 PM EDT 04/30/2025 12:25 PM EDT us Sadie Piper MD POINT OF CARE TEST ORDERABLES Final Result [facility] [address] [place] [address], [place] * VT ANES ART LINE (04/30/2025 12:17 PM EDT) Narrative Antwon Llanos SRNA - 04/30/2025 12:17 PM EDT SACHIN Mcmillan 04/30/2025 12:17 PM Art Line Performed by: SACHIN Mcmillan Authorized by: Randell Sawant MD Patient Location: [place] Start Time: 04/30/2025 12:14 PM Service Provider: Randell Sawant MD SUPERVISOR FABRICATION ( if not the service provider): STELLA [...] Patient Tolerance: Tolerated Well no arterial injury Randell Sawant MD VT ANESTHESIA Final Result * VT AN ELECTIVE ENDOTRACHEAL AIRWAY (04/30/2025 12:11 PM EDT) Antwon Velásquez SRNA - 04/30/2025 12:11 PM EDT SACHIN Mcmillan 04/30/2025 12:16 PM Airway Patient location during procedure: OR Urgency: Elective Date/Time: 04/30/2025 12:11 PM Airway not difficult IV In Situ: Peripheral General Information and Staff Service Provider: Randell Sawant MD SUPERVISOR FABRICATION: STELLA Mariee Student: SACHIN Mcmillan Placed by: [...] EDT) ABO O 04/30/2025 11:03 AM EDT [facility] RH Positive 04/30/2025 11:03 AM EDT [facility] Antibody Screen Negative 04/30/2025 11:03 AM EDT [facility] Blood Venous blood / Unknown 04/30/2025 9:57 AM EDT 04/30/2025 9:57 AM EDT Sadie Piper MD BLOOD BANK TEST ORDERABLES Ed ited Result - Final [facility] [address] [place] [address], [facility] [address] [place] [address], from Last 3 Months Additional Health Concerns Active Problems Noted Date Diagnosed Date Autogenerated Problem 06/10/2025 Insurance PENDING SALE TO [facility] Care Teams Civil Engineering Professor Relationship Specialty Start Date End Date Curt De Dios MD [address] [place] [address] PCP - General Family Medicine 05/27/25
--- OUTSIDE RECORDS SUMMARY | 2025-06-10 15:05 | XMS_ITS | Encounter Summary ---
Author Organization [facility] Address [address] [place] [address] Care Team Providers Care Willow Machine Tender Name Role Phone Kathie Sánchez NP Unavailable [phone] Kathie Sánchez NP Unavailable [phone] Curt De Dios MD Primary Care Provider [phone] Katihe Sánchez NP Unavailable [phone] Lissa Garza MA Unavailable [phone] Andrade Pendleton OD Unavailable Encounter Details [...] often do you attend chur ch or congregational services? Never 02/28/2024 Do you belong to any clubs o r organizations such as roman catholic groups, unions, fraternal or athletic groups, [...] Recorded Patient Health Questionnaire-2 Score 0 02/28/2024 [facility] - Occupational Stress [...] EDT Narrative 04/09/2024 3:21 [place] [address] CT Scan Report Signed Patient: ALPHONSE STEARNS MR#: [id number] : 1960 Acct:[id number] Age/Sex: 63 / M ADM Date: 04/09/24 Loc: CT Attending Dr: Josué Alves D.O. Ordering Physician: Josué Alves D.O. Date of Service: 04/09/24 Procedure(s): CT chest wo con Accession Number(s): [id number] cc: Kathie Sánchez NP The [address] [address] Patient Name: ALPHONSE STEARNS MRN: [id number] date: 1960 Sex: M Assigned Patient Location: CT Current Patient Location: CT Accession/Order Number: [id number] Exam Date: 04/09/2024 12:51 Report Date: 04/09/2024 [...] Signed By: 04/09/24 1521 DD/ 1518 TD/TT: Dyehouse Worker: Procedure Note Radiology, Radiologist, - 04/09/2024 [facility] [place] [address] [address] Scan Report Signed Patient: ALPHONSE STEARNS WMR#: [id number] : 1960cct:[id number] Age/Sex: 63 / MADM Date: 04/09/24 Loc: CT Attending Dr: Josué Alves D.O. Ordering Physician: Josué Alves D.O. Date of Service: 04/09/24 Procedure(s): CT chest wo con Accession Number(s): [id number] cc: Kathie Sánchez NP [address] [address] Patient Name: ALPHONSE STEARNS MRN: [id number] date: 1960 Sex: M Assigned Patient Location: CT Current Patient Location: CT Accession/Order Number: [id number] Exam Date: 04/09/2024 12:51 Report Date: 04/09/2024 [...] M.D. Signed By:04/09/24 1521 DD/ 1518 TD/TT: Dyehouse Worker: us Generic External Data Provider [facility] Final Result documented in this encounter Visit Diagnoses Not on filedocumented in this encounter Additional Health Concerns Assessment Noted Time PHQ-9 Depression Total Score: 2 02/28/20 10:39 AM EDT A fall risk assessment has been complete d for the patient 02/28/2024 10:39 AM EDT documented as of this encounter Care Teams Willow Machine Tender Relationship Specialty Start Date End Date Kathie Sánchez NP [address] [place] [address] PCP - [place] 12/29/23 Curt De Dios MD [address] [place] [address] PCP - General Family Medicine 02/28/24 05/01/25 Kathie Sánchez NP [address] [place] [phone] Nurse Practitioner Family Medicine 10/03/23 Kathie Sánchez NP [address] [place] [phone] Nurse Practitioner Family Medicine 02/28/24 Lissa Garza MA [address] [place] [address] Family Medicine 12/05/24 03/06/25 Andrade Pendleton OD [address] [place] [address] Referring Physician Optometry 01/02/25 documented as of this encounter
--- OUTSIDE RECORDS SUMMARY | 2025-06-10 15:05 | XMS_ITS | Clinical Summary ---
Author Organization [facility] Address [address] [place] [address] Care Team Providers Care Machine Helper Name Role Phone Curt De Dios MD Primary Care Provider [phone] Allergies No known active allergies Medications albuterol [...] mouth two times daily. 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 Carpal tunnel syndrome of right wrist 10/27/2023 [...] Team Description 05/08/2025 10:00 AM EDT Follow-Up [address] [address] Sylvain Fajardo MD PAF (paroxysmal atrial fibrillation) (CMS/HCC) (Primary Dx); Coronary artery disease involving modoc coronary artery of modoc heart without angina pectoris; Shortness of breath; Status post insertion of drug eluting coronary artery stent 05/08/2025 Orders Only [address] [address] ProviderDavey MD 05/02/2025 Telephone [place] [address] [place] [facility] [place] [address] Nereida Pedro MA 04/05/2025 9:00 AM EDT - 04/05/2025 10:00 AM EDT Surgery [facility] Vascular Lab [address] [address] Sylvain Fajardo MD Coronary angiography 04/05/2025 8:32 AM EDT - 04/06/2025 11:35 PM EDT Hospital Encounter [facility] [address] [facility] [place] [address] Sylvain Fajardo MD Sanaullah, Babar, MD Coronary artery disease (Primary Dx); Abnormal stress test Discharge Disposition: Senior Care Facility () 04/05/2025 Travel 04/02/2025 Orders Only [place] [address] [place] [facility] [place] [address] ChunSandra MA Abnormal stress test 04/02/[address] [address] Sandra Mccollum MA 03/15/2025 1:30 PM EDT Office Visit [address] [address] Sylvain Fajardo MD PAF (paroxysmal atrial fibrillation) [...] = 0.6 oz pur e alcohol) former [facility] Utilities Answer Date Recorded In the past 12 months has [employer], oil, or water [employer] threatened to shut off services in your [...] any time in the past 12 m [facility], were you homeless or living in a custodial (including now)? No 04/05/2025 Hunger Vital Sign [...] this topic Medical Devices Implanted Type Area Evp Marketing Device Identifier Shelf Expiration Date Model / Serial / Lot Stent,Synergy Xd Mr [id number] - [id number] - [id number] Implanted:Qty : 1 on 04/05/2025 by Sylvain Fajardo MD at [facility] Drug Eluting Stent Left: Heart [employer] [id number] 12/11/2026 [id number] / [id number] / [id number] Procedures Procedure Name Priority Date/Time Associated Diagnosis [...] - 10.60 10*3/uL 04/05/2025 1:51 PM EDT [facility] RBC 4.03(L) 4.20 - 5.70 10*6/uL 04/05/2025 1:51 PM EDT [facility]) Hemoglobin 11.4(L) 13.0 - 17.0 g/dL 04/05/2025 1:51 PM EDT [facility] ([facility]) Hematocrit 36.2(L) 39.0 - 50.0 % 04/05/2025 1:51 PM EDT [facility]) MCV 89.8 82.0 - 98.0 fL 04/05/2025 1:51 PM EDT [facility]) MCH 28.3 27.0 - 33.0 pg 04/05/2025 1:51 PM EDT [facility] ([facility]) MCHC 31.5(L) 32.0 - 35.0 g/dL 04/05/2025 1:51 PM EDT [facility]) RDW 15.0 11.5 - 15.0 % 04/05/2025 1:51 PM EDT [facility]) Neutrophils % 76.7(H) 40.0 - 72.0 % 04/05/2025 1:51 PM EDT [facility]) Lymphocytes % 14.8(L) 20.0 - 45.0 % 04/05/2025 1:51 PM EDT [facility]) Monocytes % 5.9 5.0 - 12.0 % 04/05/2025 1:51 PM EDT [facility]) Eosinophils % 0.6 0.0 - 6.0 % 04/05/2025 1:51 PM EDT [facility]) Basophils % 0.6 0.0 - 1.0 % 04/05/2025 1:51 PM EDT [facility]) Neutrophils Absolute 7.56 1.60 - 7.60 10*3/uL 04/05/2025 1:51 PM EDT [facility]) Lymphocytes Absolute 1.46 1.20 - 4.00 10*3/uL 04/05/2025 1:51 PM EDT [facility]) Monocytes Absolute 0.58 0.10 - 1.00 10*3/uL 04/05/2025 1:51 PM EDT [facility]) Eosinophils Absolute 0.06 0.00 - 0.50 10*3/uL 04/05/2025 1:51 PM EDT [facility]) Basophils Absolute 0.06 0.00 - 0.20 10*3/uL 04/05/2025 1:51 PM EDT [facility] ([facility]) Platelets 359 150 - 400 10*3/uL 04/05/2025 1:51 PM EDT [facility]) nRBC % 0.0 0 % 04/05/2025 1:51 PM EDT [facility]) Immature Granulocytes % 1.4(H) 0.0 - 1.0 % 04/05/2025 1:51 PM EDT [facility]) Immature Granulocytes Absolute 0.14 0.00 - 0.20 10*3/uL 04/05/2025 1:51 PM EDT [facility]) Blood Venous blood specimen / Unknown Arterial Line / Unknown 04/05/2025 1:14 PM EDT 04/05/2025 1:17 PM EDT us Denis Manuel MD LAB BLOOD ORDERABLES Final Re sult [facility]) [address] [place] [address] * (ABNORMAL) Magnesium (04/05/2025 1:14 PM EDT) Magnesium 1.7(L) 1.9 - 2.7 mg/dL 04/05/2025 1:44 PM EDT [facility]) Blood Venous blood specimen / Unknown Arterial Line / Unknown 04/05/2025 1:14 PM EDT 04/05/2025 1:17 PM EDT Denis Manuel MD LAB BLOOD ORDERABLES Final Re sult [facility]) [address] [place] [address] * Hemoglobin A1c (04/05/2025 1:14 PM EDT) Hemoglobin A1C 5.0 4.0 - 6.0 % 04/06/2025 2:09 PM EDT [facility]) Estimated Average Glucose 97 mg/dL 04/06/2025 2:09 PM EDT [facility]) Blood Venous blood specimen / Unknown Arterial Line / Unknown 04/05/2025 1:14 PM EDT 04/05/2025 1:17 PM EDT Evelin Renteria MD LAB BLOOD ORDERABLES Final Resul t Performing Organization Address City/[facility]/ZIP Co de Phone Number [facility]) [address] [place] [address] * Lipid panel (04/05/2025 1:14 PM EDT) Triglycerides 61 <150 mg/dL 04/06/2025 12:29 PM EDT [facility]) Comment: TRIGLYCERIDE REFERENCE RANGE: 20 YEARS AND OLDER CARDIOVASCULAR RISK LESS THAN 150 mg/dL LOW RISK 150 TO 199 mg/dL BORDERLINE RISK 200 mg/dL AND GREATER HIGH RISK Cholesterol 136 120 - 200 mg/dL 04/06/2025 12:29 PM EDT [facility]) LDL Calculated 83 0 - 160 mg/dL 04/06/2025 12:29 PM EDT [facility]) HDL 41 23 - 92 mg/dL 04/06/2025 12:29 PM EDT [facility]) Non HDL Cholesterol 95 04/06/2025 12:29 PM EDT [facility]) Total VLDL-C 12 0 - 40 mg/dL 04/06/2025 12:29 PM EDT [facility]) Cholesterol/HDL Ratio 3.3 mg/dL 04/06/2025 12:29 PM EDT [facility]) Blood Venous blood specimen / Unknown Arterial Line / Unknown 04/05/2025 1:14 PM EDT 04/05/2025 1:17 PM EDT us Evelin Renteria MD LAB BLOOD ORDERABLES Final Resul t [facility]) [address] [place], [place] [id number] * (ABNORMAL) Comprehensive metabolic panel (04/05/2025 1:14 PM EDT) Sodium 141 136 - 145 mmol/L 04/05/2025 1:44 PM EDT [facility]) Potassium 3.7 3.5 - 5.1 mmol/L 04/05/2025 1:44 PM EDT [facility]) Chloride 106 98 - 107 mmol/L 04/05/2025 1:44 PM EDT [facility]) CO2 27 21 - 31 mmol/L 04/05/2025 1:44 PM EDT [facility]) Anion Gap 12 7 - 20 mmol/L 04/05/2025 1:44 PM EDT [facility]) BUN 18 7 - 25 mg/dL 04/05/2025 1:44 PM EDT [facility]) Creatinine 0.72 0.70 - 1.30 mg/dL 04/05/2025 1:44 PM EDT [facility]) BUN/Creatinine Ratio 25.0 07/2025 1:44 PM EDT [facility]) Glucose 107(H) 70 - 100 mg/dL 04/05/2025 1:44 PM EDT [facility]) Calcium 8.7 8.6 - 10.3 mg/dL 04/05/2025 1:44 PM EDT [facility]) AST 15 13 - 39 U/L 04/05/2025 1:44 PM EDT [facility]) ALT (SGPT) 9 7 - 52 U/L 04/05/2025 1:44 PM EDT [facility]) Alkaline Phosphatase 63 34 - 104 U/L 04/05/2025 1:44 PM EDT [facility]) Total Protein 6.3 6.0 - 8.3 g/dL 04/05/2025 1:44 PM EDT [facility]) Albumin 3.4(L) 3.5 - 5.7 g/dL 04/05/2025 1:44 PM EDT [facility]) Total Bilirubin 0.3 0.3 - 1.0 mg/dL 04/05/2025 1:44 PM EDT [facility]) eGFR 100.8 >60.0 mL/min/1. 73m*2 04/05/2025 1:44 PM EDT [facility]) Comment:[facility] s estimated glomerular filtration rate (eGFR) [...] MD LAB BLOOD ORDERABLES Final Re sult [facility]) [address] [place] [address] * CORONARY ANGIOGRAPHY, LEFT HEART CATH, PERC [...] informed consent. he was brought to the label drier in a fasting state. The left wrist area was prepped and draped in usual fashion. Micropuncture technique was used for access in the left radial artery. A 6-[place] x 11 cm sheath was placed. Verapamil was given through the sheath, and heparin was administered intravenously. The 6-[place] JR4 catheter was navigated across the aortic valve over a wire and used to perform left heart catheterization with measurement of pressures. Pullback across the aortic valve was performed with measurement of pressures. Bilateral selective coronary angiography was then performed using 6-[place] JL4 and JR4 diagnostic catheters. Catheters were removed. Heparin was administered intravenously and therapeutic ACT was confirmed during the rest of the procedure. A 6-[place] XB 3.5 guiding catheter was advanced and used to engage the left coronary ostium. Baseline FAMILIA flow was 3. A [place] coronary guide wire was advanced to the [...] of3 resultswithin the time period is included. [facility] POCT ACT 219(A) 82 - 152 seconds QC Pass/Fail Passed QC LOT # [id number] QC Expiration Date 73,125 Blood Venous blood specimen / Unknown 04/05/2025 10:42 AM EDT Narrative Randell Sanchez, [place] - 04/10/2025 11:27 AM EDT Qc lot [id number]; double back operator [id number] Sylvain Fajardo MD POINT OF [...] 10:55 AM 04/07/2025 1:35 AM Care Teams Machine Helper Relationship Specialty Start Date End Date Curt De Dios MD [address] [place] [address] PCP - General Family Medicine 5/10/25
--- OUTSIDE RECORDS SUMMARY | 2025-06-10 15:05 | XMS_ITS | Encounter Summary ---
Author Organization [facility] Address [address] [place] [address] Care Team Providers Care Costume Maker Name Role Phone Kathie Sánchez SUPERVISOR CLAIMS Unavailable [phone] Kathie Sánchez SUPERVISOR CLAIMS Unavailable [phone] Curt De Dios MD Primary Care Provider Kathie Sánchez NP Unavailable [phone] Lissa Garza MA Unavailable [phone] Andrade Pendleton OD Unavailable Encounter Details Date Type Department Care Team (Late st Contact Info) Description 02/25/2025 Orders Only [facility] [address] [place] [address] James Mart MD [address] [place] [address] [place] [address] Social History Tobacco Use Types [...] often do you attend chur ch or anglican services? Never 02/28/2024 Do you belong to any clubs o r organizations such as adventist groups, unions, fraternal or athletic groups, or [...] Recorded Patient Health Questionnaire-2 Score 0 02/28/2024 [facility]at [facility] - Occupational [...] documented as of this encounter Care Teams Costume Maker Relationship Specialty Start Date End Date Kathie Sánchez NP [address] [place] [address] PCP - Crow LAFLEUR 12/29/23 Curt De Dios MD [address] [place] [address] PCP - General Family Medicine 02/28/24 05/01/25 Kathie Sánchez NP [address] [place] [address] Nurse Practitioner Family Medicine 10/03/23 Kathie Sánchez NP [address] [place] [address] Nurse Practitioner Family Medicine 02/28/24 Lissa Garza MA [address] [place] [address] Family Medicine 12/05/24 03/06/25 Andrade Pendleton OD [address] [place] [address] Referring Physician Optometry 01/02/25 documented as of this encounter
--- OUTSIDE RECORDS SUMMARY | 2025-06-10 15:05 | XMS_ITS | Encounter Summary ---
Author Organization [facility] Address [address] [place] [address] Care Team Providers Care Wall Attendant Name Role Phone Kathie Sánchez NP Unavailable [phone] Kathie Sánchez NP Unavailable [phone] Kathie Sánchez NP Unavailable [phone] Andrade Pendleton OD Unavailable Encounter Details Date Type Department Care Team (Late st Contact Info) Description 06/10/2025 Abstract [facility] [address] [place] [address] Kathie Sánchez NP [address] [place] [address] Social History Tobacco Use Types Packs/Day Years [...] Recorded Patient Health Questionnaire-2 Score 0 02/28/2024 [facility]at [facility] - Occupational Stress [...] documented as of this encounter Care Teams Wall Attendant Relationship Specialty Start Date End Date Kathie Sánchez NP [address] [place] [address] PCP - Crow LAFLEUR 12/29/23 Kathie Sánchez NP [address] [place] [address] Nurse Practitioner Family Medicine 10/03/23 Kathie Sánchez NP [address] [address] Nurse Practitioner Family Medicine 02/28/24 Andrade Pendleton OD [address] [place] [address] Referring Physician Optometry 01/02/25 documented as of this encounter
--- OUTSIDE RECORDS SUMMARY | 2025-06-10 15:05 | XMS_ITS | Encounter Summary ---
Author Organization [facility] Address [address] [place] [address] Care Team Providers Care Wind Turbine Installer Name Role Phone Kathie Sánchez NP Unavailable [phone] Kathie Sánchez NP Unavailable [phone] Kathie Sánchez NP Unavailable [phone] Andrade Pendleton OD Unavailable Encounter Details Date Type Department Care Team (Late st Contact Info) Description 06/10/2025 Abstract [facility] [address] [place] [address] Kathie Sánchez NP [address] [place] [address] Social History Tobacco Use Types Packs/Day Years [...] often do you attend chur ch or jain services? Never 02/28/2024 Do you belong to any clubs o r organizations such as spiritism groups, unions, fraternal or athletic groups, or [...] Patient Health Questionnaire-2 Score 0 02/28/2024 [facility] of Occupat ional Health [...] documented as of this encounter Care Teams Wind Turbine Installer Relationship Specialty Start Date End Date Kathie Sánchez NP [address] [place] [address] PCP - Crow LAFLEUR 12/29/23 Kathie Sánchez NP [address] [place] [address] Nurse Practitioner Family Medicine 10/03/23 Kathie Sánchez NP [address] [place] [address] Nurse Practitioner Family Medicine 02/28/24 Andrade Pendleton OD [address] [place] [address] Referring Physician Optometry 01/02/25 documented as of this encounter
--- OUTSIDE RECORDS SUMMARY | 2025-06-10 15:05 | XMS_ITS | Encounter Summary ---
Author Organization [facility] Address [address] [place] [address] Care Team Providers Care Mini Lab Operator Name Role Phone Kathie Sánchez NP Unavailable [phone] Curt De Dios MD Primary Care Provider [phone] Kathie Sánchez NP Unavailable [phone] Debra Woods LPN Unavailable Unavailable Curt De Dios MD Primary Care Provider [phone] Kathie Sánchez NP Unavailable [phone] Lissa Garza MA Unavailable [phone] Andrade Pendleton OD Unavailable Encounter Details Date Type Department Care Team (Late st Contact Info) Description 11/13/2023 Abstract [facility] [address] [place] [address] Kathie Sánchez NP [address] [place] [address] Social History Tobacco Use Types Packs/Day Years [...] on filedocumented in this encounter Care Teams Mini Lab Operator Relationship Specialty Start Date End Date Curt De Dios MD [address] [place] [address] PCP - General Family Medicine 11/11/23 02/27/24 Kathie Sánchez NP [address] [place] [address] PCP - Crow LAFLEUR 12/29/23 Curt De Dios MD [address] [place] [address] PCP - General Family Medicine 02/28/24 05/01/25 Kathie Sánchez NP [address] [place] [address] Nurse Practitioner Family Medicine 10/03/23 Debra Woods LPN Registered Nurse Family Medicine 02/28/24 02/29/24 Kathie Sánchez NP [address] [place] [address] Nurse Practitioner Family Medicine 02/28/24 Lissa Garza MA [address] [place] [address] Family Medicine 12/05/24 03/06/25 Andrade Pendleton OD [address] [place] [address] Referring Physician Optometry 01/02/25 documented as of this encounter
--- OUTSIDE RECORDS SUMMARY | 2025-06-10 15:05 | XMS_ITS ---
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
--- OUTSIDE RECORDS SUMMARY | 2025-06-10 15:05 | XMS_ITS | Encounter Summary ---
Author Organization [facility] Address [address] [place] [address] Care Team Providers Care Textile Knitter Name Role Phone Kathie Sánchez ENTRY LEVEL PROJECT ENGINEER Unavailable [phone] Kathie Sánchez ENTRY LEVEL PROJECT ENGINEER Unavailable [phone] Curt De Dios MD Primary Care Provider Kathie Sánchez NP Unavailable [phone] Lissa Garza MA Unavailable [phone] Andrade Pendleton OD Unavailable Encounter Details Date Type Department Care Team (Late st Contact Info) Description 01/10/2025 Orders Only [facility] [address] [place] [address] Pedro Rose MD [address] [place] [address] Social History Tobacco Use Types [...] any clubs o r organizations such as religious groups, unions, fraternal or athletic groups, or [...] Recorded Patient Health Questionnaire-2 Score 0 02/28/2024 [facility] of Occupat ional Health - Occupational Stress [...] documented as of this encounter Care Teams Textile Knitter Relationship Specialty Start Date End Date Kathie Sánchez NP [address] [place] [address] PCP - Crow LAFLEUR 12/29/23 Curt De Dios MD [address] [place] [address] PCP - General Family Medicine 02/28/24 05/01/25 Kathie Sánchez NP [address] [place] [address] Nurse Practitioner Family Medicine 10/03/23 Kathie Sánchez NP [address] [place] [address] Nurse Practitioner Family Medicine 02/28/24 Lissa Garza MA [address] [place] [address] Family Medicine 12/05/24 03/06/25 Andrade Pendleton OD [address] [place] [address] Referring Physician Optometry 01/02/25 documented as of this encounter
--- OUTSIDE RECORDS SUMMARY | 2025-06-10 15:05 | XMS_ITS | Encounter Summary ---
Author Organization [facility] tem Address [id number] [address] [place] [address] Care Team Providers Care Pathology Collector Name Role Phone Curt De Dios MD Primary Care Provider [phone] Encounter Details Date Type Department Care Team (Late st Contact Info) Description 04/17/2025 Documentation [facility] On [address] [address] Indigo Mishra RN Social History Tobacco Use [...] 3:58 PM EDT Faxed PAT instructions to [facility] [phone] documented in this encounter Plan of Treatment Upcoming Encounters Date Type Department Care Team (Latest Contact Info) Description 06/18/2025 10:00 AM EDT Support Visit [facility] On [address] [place] [address] 07/02/2025 8:00 AM EDT Hospital Encounter [address] [place] [address] Sadie Piper MD [address], [address] [address] 07/02/2025 8:00 AM EDT - 07/02/2025 11:00 AM EDT Surgery [facility] Surgery [address] [place] [address]. [place] [address] Sadie Piper MD [address], [address] [address] ENDOGRAFT BYPASS THORACIC AORTA [[id number] (CPT )] 07/31/2025 10:30 AM EDT Appointment [facility] - CT Imaging [address] [place] [address] Sadie Piper MD [address], [address] [address] 08/08/2025 9:40 AM EDT Office Visit [facility] [place] [address] Sadie Piper MD [address], [facility] [address] [place] [address] Scheduled Procedures Name Priority Associated Diagnoses Date/Ti me ENDOGRAFT BYPASS THORACIC AORTA Penetrating atherosclerotic ulcer of aorta Aneurysm of descending thoracic aorta without rupture 07/02/2025 8:00 AM EDT documented as of this encounter Visit Diagnoses Not on filedocumented in this encounter Care Teams Pathology Collector Relationship Specialty Start Date End Date Curt De Dios MD [address] [place] [address] PCP - General Family Medicine 05/27/25 documented as of this encounter
--- OUTSIDE RECORDS SUMMARY | 2025-06-10 15:05 | XMS_ITS | Encounter Summary ---
Author Organization [employer] tem Address [id number] [address] [place] [address] Care Team Providers Care Quality Control Projectionist Name Role Phone Curt De Dios MD Primary Care Provider [phone] Encounter Details Date Type Department Care Team (Latest Contact Info) Description 05/27/2025 Travel Social History Tobacco Use Types Packs/Day Years Used Date Smoking Tobacco: Former Cigarettes Smokeless Tobacco: Never Alcohol Use Standard Drinks/Week Comments No 0 (1 standard drink = 0.6 oz pure alcohol) quit drinking 2 years ago; august 2015 [facility] Utilities Answer Date Recorded In the past 12 months has th [employer] gas, oil, or water [employer] threatened to shut off services in [...] Description 06/18/2025 10:00 AM EDT Support Visit [facility] Pre-Ad[facility] On [address] [address] 07/02/2025 8:00 AM EDT Hospital Encounter [facility] Surgery [address] [place] [address]. [place] [address] Sadie Piper MD [address], [facility] [address] [place] [address] 07/02/2025 8:00 AM EDT - 07/02/2025 11:00 AM EDT Surgery [facility] Surgery [address] [place] [address]. [place] [address] Sadie Piper MD [address], [address] [place] [address] ENDOGRAFT BYPASS THORACIC AORTA [[id number] (CPT )] 07/31/2025 10:30 AM EDT Appointment [facility] - CT Imaging [address] [place] [address] Sadie Piper MD [address], [address] [place] [address] 08/08/2025 9:40 AM EDT Office Visit [facility] [place] [address] Sadie Piper MD [address], [address] [place] [address] Scheduled Procedures Name Priority Associated Diagnoses Date/Ti me ENDOGRAFT BYPASS THORACIC AORTA Penetrating atherosclerotic ulcer of aorta Aneurysm of descending thoracic aorta without rupture 07/02/2025 8:00 AM EDT documented as of this encounter Goals Goal Patient Goal Type Associated Problems Recent Progress Patient-Stated? Author Safe Discharge General Yes Linda Bhat, RN Note: Evaluation of progress towards goal: safe transition back to [facility] for long-term care services. documented as of this encounter Visit Diagnoses Not on filedocumented in this encounter Additional Health Concerns Assessment Noted Time PHQ-9 Depression Total Score: 1 05/01/20 25 10:30 AM EDT documented as of this encounter Care Teams Quality Control Projectionist Relationship Specialty Start Date End Date Curt De Dios MD [address] [place] [address] PCP - General Family Medicine 05/27/25 documented as of this encounter
--- OUTSIDE RECORDS SUMMARY | 2025-06-10 15:06 | XMS_ITS | Encounter Summary ---
Author Organization [employer] tem Address [id number] [address] [place] [address] Care Team Providers Care Websphere Portal Developer Name Role Phone Curt De Dios MD Primary Care Provider [phone] Reason for Referral * Diagnostic Imaging (Routine) - Pending Review Specialty Diagnoses / Procedures Referred By Contac t Referred To Contact Radiology Diagnoses Penetrating atherosclerotic ulcer of aorta Aneurysm of descending thoracic aorta without rupture Procedures CT angiogram chest Sadie Piper MD [address] [address] Phone: tel: fax: Referral ID Status Reason Start Date Expiration Date V isits Requested Visits Authorized [id number] Pending Review 06/10/2025 06/10/2026 1 1 * Diagnostic Imaging (Routine) - Pending Review Specialty Diagnoses / Procedures Referred By Contac t Referred To Contact Radiology Diagnoses Penetrating atherosclerotic ulcer of aorta Aneurysm of descending thoracic aorta without rupture Procedures CT angiogram abdomen and pelvis Sadie Piper MD [address] [address] Phone: tel: fax: Referral ID Status Reason Start Date Expiration Date V isits Requested Visits Authorized [id number] Pending Review 06/10/2025 06/10/2026 1 1 Encounter Details Date Type Department Care Team (Late st Contact Info) Description 06/10/2025 Orders Only [facility] [address] [place] [address] Shantelle Morales Penetrating atherosclerotic ulcer of aorta (Primary Dx); Aneurysm of descending thoracic aorta without rupture Social History Tobacco Use Types Packs/Day Years Used Date Smoking Tobacco: Former Cigarettes Smokeless Tobacco: Never Alcohol Use Standard Drinks/Week Comments No 0 (1 standard drink = 0.6 oz pure alcohol) quit drinking 2 years ago; august 2015 [facility] Utilities Answer Date Recorded In the past 12 months has th e electric, gas, oil, or water company threatened to shut off services in your [...] Description 06/18/2025 10:00 AM EDT Support Visit [facility] On [address] [place] [address] 07/02/2025 8:00 AM EDT Hospital Encounter [facility] Surgery [address] [place] [address]. [place] [address] Sadie Piper MD [address], [address] [address] 07/02/2025 8:00 AM EDT - 07/02/2025 11:00 AM EDT Surgery [facility] Surgery [address] [place] [address]. [place] [address] aSdie Piper MD [address], [facility] [address] [place] [address] ENDOGRAFT BYPASS THORACIC AORTA [[id number] (CPT )] 07/31/2025 10:30 AM EDT Appointment [facility] - CT Imaging [address] [place] [address] Sadie Piper MD [address], [address] [address] 08/08/2025 9:40 AM EDT Office Visit [facility] [place] [address] Sadie Piper MD [address], [facility] [address] [place] [address] Scheduled Orders Name Type Priority Associated Diagnoses Orde r Schedule CT angiogram abdomen and pelvis Imaging Routine Penetrating atherosclerotic ulcer of aorta Aneurysm of descending thoracic aorta without rupture Expected: 06/10/2025, Expires: 06/10/2026 CT angiogram chest Imaging Routine Penetrating atherosclerotic ulcer of aorta Aneurysm of descending thoracic aorta without rupture Expected: 06/10/2025, Expires: 06/10/2026 Scheduled Procedures Name Priority Associated Diagnoses Date/Ti me ENDOGRAFT BYPASS THORACIC AORTA Penetrating atherosclerotic ulcer of aorta Aneurysm of descending thoracic aorta without rupture 07/02/2025 8:00 AM EDT documented as of this encounter Goals Goal Patient Goal Type Associated Problems Recent Progress Patient-Stated? Author Safe Discharge General Yes Linda Bhat, RN Note: Evaluation of progress towards goal: safe transition back to [facility] for long-term care services. Autogenerated Goal Care Plan Autogenerated Problem No Nasima Sharpe documented as of this encounter Visit Diagnoses Diagnosis Penetrating atherosclerotic ulcer of aorta Thoracic aortic aneurysm Penetrating atherosclerotic ulcer of aorta- Primary Aneurysm of descending thoracic aorta without rupture Penetrating atherosclerotic ulcer of aorta Aneurysm of descending thoracic aorta without rupture documented in this encounter Additional Health Concerns Active Problems Noted Date Diagnosed Date Autogenerated Problem 06/10/2025 Assessment Noted Time PHQ-9 Depression Total Score: 1 05/01/20 10:30 AM EDT documented as of this encounter Care Teams Websphere Portal Developer Relationship Specialty Start Date End Date Curt De Dios MD [address] [place] [address] PCP - General Family Medicine 05/27/25 documented as of this encounter
--- OUTSIDE RECORDS SUMMARY | 2025-06-10 15:06 | XMS_ITS | Encounter Summary ---
Author Organization [facility] Address [address] [place] [address] Care Team Providers Care Health/Safety Job Titles Name Role Phone Kathie Sánchez NP Unavailable [phone] Kathie Sánchez NP Unavailable [phone] Curt De Dios MD Primary Care Provider Kathie Sánchez NP Unavailable [phone] Lissa Garza MA Unavailable [phone] Andrade Pendleton OD Unavailable Encounter Details Date Type Department Care Team (Late st Contact Info) Description 09/17/2024 Clinisync Result Encounter [facility] External Department Unsolicited Kathie Sánchez NP [address] [place] [address] Social History Tobacco Use Types Packs/Day Years [...] often do you attend chur ch or muslim services? Never 02/28/2024 Do you belong to [...] Recorded Patient Health Questionnaire-2 Score 0 02/28/2024 [facility] - Occupational [...] EDT Narrative 09/17/2024 2:03 PM EDT The [address] [address] XRay Report Signed Patient: ALPHONSE STEARNS MR#: [id number] : 1960 Acct:[id number] Age/Sex: 64 / M ADM Date: 09/14/24 Loc: RAD Attending Dr: Kathie Sánchez CERAMIC DESIGN ENGINEER Ordering Physician: Katihe Sánchez NP Date of Service: 09/14/24 Procedure(s): XR cervical spine 2-3V Accession Number(s): [id number] cc: Kathie Sánchez NP The [place] [address] Patient Name: ALPHONSE STEARNS MRN: [id number] date: 1960 Sex: M Assigned Patient Location: RAD Current Patient Location: Accession/Order Number: [id number] Exam Date: 09/14/2024 09:38 Report Date: 09/17/2024 [...] Signed By: 09/17/24 1403 DD/ 1400 TD/TT: Loader: Procedure Note Radiology, Radiologist, MD - 09/17/2024 [place] [address] XRay Report Signed Patient: ALPHONSE STEARNS WMR#: [id number] : 1960cct:[id number] Age/Sex: 64 / MADM Date: 09/14/24 Loc: RAD Attending Dr: Kathie Sánchez CERAMIC DESIGN ENGINEER Ordering Physician: Kathie Sánchez NP Date of Service: 09/14/24 Procedure(s): XR cervical spine 2-3V Accession Number(s): [id number] cc: Kathie Sánchez NP [address] [address] Patient Name: ALPHONSE STEARNS MRN: [id number] date: 1960 Sex: M Assigned Patient Location: [facility] Current Patient Location: Accession/Order Number: [id number] Exam Date: 09/14/2024 09:38 Report Date: 09/17/2024 [...] M.D. Signed By:09/17/24 1403 DD/ 1400 TD/TT: Loader: Kathie Sánchez NP [facility] Final Result documented in this encounter Visit Diagnoses Not on filedocumented in this encounter Additional Health Concerns Assessment Noted Time PHQ-9 Depression Total Score: 2 02/28/20 10:39 AM EDT A fall risk assessment has been complete d for the patient 02/28/2024 10:39 AM EDT documented as of this encounter Care Teams Health/Safety Job Titles Relationship Specialty Start Date End Date Kathie Sánchez NP [address] [place] [address] PCP - Crow LAFLEUR 12/29/23 Curt De Dios MD [address] [place] [address] PCP - General Family Medicine 02/28/24 05/01/25 Kathie Sánchez NP [address] [place] [address] Nurse Practitioner Family Medicine 10/03/23 Kathie Sánchez NP [address] [place] [address] Nurse Practitioner Family Medicine 02/28/24 Lissa Garza MA [address] [place] [address] Family Medicine 12/05/24 03/06/25 Andrade Pendleton OD [address] [place] [address] Referring Physician Optometry 01/02/25 documented as of this encounter
--- OUTSIDE RECORDS SUMMARY | 2025-06-10 15:06 | XMS_ITS | Encounter Summary ---
Author Organization [facility] Address [address] [facility] [place] [address] Care Team Providers Care Metal Fabricating Shop Helper Name Role Phone Kathie Sánchez NP Unavailable [phone] Kathie Sánchez NP Unavailable [phone] Curt De Dios MD Primary Care Provider [phone] Kathie Sánchez NP Unavailable [phone] Lissa Garza MA Unavailable [phone] Andrade Pendleton OD Unavailable Encounter Details Date Type Department Care Team (Late st Contact Info) Description 09/17/2024 Orders Only [facility] [address] [place] [address] Kathie Sánchez OUTSIDE UPHOLSTERER [address] [place] [address] Social History Tobacco Use Types Packs/Day Years [...] any clubs o r organizations such as zoroastrian groups, unions, fraternal or athletic groups, or [...] Recorded Patient Health Questionnaire-2 Score 0 02/28/2024 [facility]ational Stress [...] place to sleep or slept in a nursing home (including now)? No 02/28/2024 Sex and [...] Spine, C-spine Radiographic Veronique ging us Kathie Sánchze NP IMG XR PROCEDURES Final Result documented in this encounter Visit Diagnoses Not on filedocumented in this encounter Additional Health Concerns Assessment Noted Time PHQ-9 Depression Total Score: 2 02/28/20 24 10:39 AM EDT A fall risk assessment has been complete d for the patient 02/28/2024 10:39 AM EDT documented as of this encounter Care Teams Metal Fabricating Shop Helper Relationship Specialty Start Date End Date Kathie Sánchez NP [address] [place] [address] PCP - Crow LAFLEUR 12/29/23 Curt De Dios MD [address] [place] [address] PCP - General Family Medicine 02/28/24 05/01/25 Kathie Sánchez NP [address] [place] [address] Nurse Practitioner Family Medicine 10/03/23 Kathie Sánchez NP [address] [place] [address] Nurse Practitioner Family Medicine 02/28/24 Lissa Garza MA [address] [place] [address] Family Medicine 12/05/24 03/06/25 Andrade Pendleton OD [address] [place] [address] Referring Physician Optometry 01/02/25 documented as of this encounter
--- OUTSIDE RECORDS SUMMARY | 2025-06-10 15:06 | XMS_ITS | Encounter Summary ---
Author Organization [facility] Address [address] [place] [address] Care Team Providers Care Client Support Professional Name Role Phone Kathie Sánchez PETAL SHAPER HAND Unavailable [phone] Kathie Sánchez PETAL SHAPER HAND Unavailable [phone] Curt De Dios MD Primary Care Provider [phone] Kathie Sánchez NP Unavailable [phone] Andrade Pendleton OD Unavailable Encounter Details Date Type Department Care Team (Late st Contact Info) Description 03/12/2025 Abstract [facility] [address] [place] [address] Unallocated, Noms Provider, [address] [place], [place] [address] Social History Tobacco Use Types Packs/Day Years [...] often do you attend chur ch or restoration services? Never 02/28/2024 Do you belong to any clubs o r organizations such as protestant groups, unions, fraternal or athletic groups, or [...] Recorded Patient Health Questionnaire-2 Score 0 02/28/2024 [facility] - Occupational [...] documented as of this encounter Care Teams Client Support Professional Relationship Specialty Start Date End Date Kathie Sánchez NP [address] [place] [address] PCP - Crow LAFLEUR 12/29/23 Curt De Dios MD [address] [place] [address] PCP - General Family Medicine 02/28/24 05/01/25 Kathie Sánchez NP [address] [place] [address] Nurse Practitioner Family Medicine 10/03/23 Kathie Sánchez NP [address] [place] [address] Nurse Practitioner Family Medicine 02/28/24 Andrade Pendleton OD [address] [place] [address] Referring Physician Optometry 01/02/25 documented as of this encounter
--- OUTSIDE RECORDS SUMMARY | 2025-06-10 15:06 | XMS_ITS | Encounter Summary ---
Author Organization [facility] Address [address] [place] [facility] [place] [address] Care Team Providers Care Hydrogen Braze Furnace Operator Name Role Phone Kathie Sánchez NP Unavailable [phone] Kathie Sánchez NP Unavailable [phone] Curt De Dios MD Primary Care Provider Kathie Sánchez NP Unavailable [phone] Lissa Garza MA Unavailable [phone] Andrade Pendleton OD Unavailable Encounter Details Date Type Department Care Team (Late st Contact Info) Description 11/29/2024 Orders Only [facility] [address] [place] [address] Kathie Sánchez INSIDE HORTICULTURAL SPECIALTY GROWER [address] [place] [address] Social History Tobacco Use Types Packs/Day Years [...] often do you attend chur ch or christianity services? Never 02/28/2024 Do you belong to any clubs o r organizations such as jainism groups, unions, fraternal or athletic groups, or [...] Patient Health Questionnaire-2 Score 0 02/28/2024 [facility] - Occupational Stress Questionnaire [...] place to sleep or slept in a retirement (including now)? No 02/28/2024 Sex and Gender [...] documented as of this encounter Care Teams Hydrogen Braze Furnace Operator Relationship Specialty Start Date End Date Kathie Sánchez NP [address] [place] [address] PCP - Crow LAFLEUR 12/29/23 Curt De Dios MD [address] [place] [address] PCP - General Family Medicine 02/28/24 05/01/25 Kathie Sánchez NP [address] [place] [address] Nurse Practitioner Family Medicine 10/03/23 Kathie Sánchez NP [address] [place] [address] Nurse Practitioner Family Medicine 02/28/24 Lissa Garza MA [address] [place] [address] Family Medicine 12/05/24 03/06/25 Andrade Pendleton OD [address] [place] [address] Referring Physician Optometry 01/02/25 documented as of this encounter
--- OUTSIDE RECORDS SUMMARY | 2025-06-10 15:06 | XMS_ITS | Clinical Summary ---
Author Organization [facility] Address [address] [place] [address] Care Team Providers Care Director Of Leadership Development Name Role Phone Kathie Sánchez ADULT MINISTRIES DIRECTOR Unavailable [phone] Kathie Sánchez ADULT MINISTRIES DIRECTOR Unavailable [phone] Kathie Sánchez ADULT MINISTRIES DIRECTOR Unavailable [phone] Andrade Pendleton OD Unavailable Allergies No [...] MG tablet 03/01/20 25 Active HYDROcodone-acet aminophen ([place]) 5-325 MG tabletIndication s:Other chronic pain Take [...] Lung mass 02/28/2024 Encounter for subsequent [facility] wellness visit (AWV) in Medicare patient 02/28/2024 [...] Date Type Department Care Team Description 06/10/2025 Abstract [facility] [address] [place] [address] Kathie Sánchez, ADULT MINISTRIES DIRECTOR 06/10/2025 Abstract [facility] [address] [place] [address] Kathie Sánchez, ADULT MINISTRIES DIRECTOR 06/10/2025 Abstract [facility] [address] [place] [address] Kathie Sánchez, ADULT MINISTRIES DIRECTOR 06/10/2025 Orders Only [facility] [address] [place] [address] 06/05/2025 Clinisync Result Encounter [facility] External Department Unsolicited Provider, Generic External Data 05/02/2025 Patient Outreach [facility] [address] [place] [address] Sri Hicks, HEART SPECIALIST 04/11/2025 Telephone [facility] [address] [facility] [address] [place] [address] Melissa Meyers NP 04/08/2025 Patient Outreach [facility] [address] [place] [address] Sri Hicks, HEART SPECIALIST 04/04/2025 Clinisync Result Encounter [facility] External Department Unsolicited Robin Epps MD 03/29/2025 Clinisync Result Encounter [facility] External Department Unsolicited Provider, Generic External Data 03/29/2025 Clinisync Result Encounter [facility] External Department Unsolicited Provider, Generic External Data 03/12/2025 Abstract [facility] [address] [facility] [address] [place] [address] Unallocated, Noms MD Mi from Last 3 [...] often do you attend chur ch or sabianist services? Never 02/28/2024 Do you belong to any clubs o r organizations such as nondenominational groups, unions, fraternal or athletic groups, or [...] Recorded Patient Health Questionnaire-2 Score 0 02/28/2024 [facility] - Occupational [...] to sleep or slept in a senior living (including now)? No 02/28/2024 Sex and Gender [...] 1 VIEW Routine 06/10/2025 9:40 AM EDT MHPT PSA, DIAGNOSTIC Routine 06/05/2025 8:53 AM EDT ALL BASIC METABOLIC PANEL Routine 04/04/2025 8:47 AM EDT ALL CBC WITH AUTO DIFF Routine 04/04/2025 8:47 AM EDT CA ECHO DOPPLER COMPLETE 03/29/2025 5:41 PM EDT NM SANDI PERF SPECT REST STR 03/29/2025 1:42 PM EDT from Last 3 Months Results * US VENOUS DUPLEX RIGHT UPPER (06/10/2025 11:38 AM EDT) Anatomical Region Laterality Modality Radiographic Veronique ging us Ernesto Ortega MD IMG XR PROCEDURES Final Result * XR chest 1 view (06/10/2025 9:40 AM EDT) Anatomical Region Laterality Modality Chest Radiographic Veronique ging [facility] IMG XR PROCEDURES Final Result * MHPT PSA, DIAGNOSTIC (06/05/2025 8:53 AM EDT) PROSTATE SPECIFIC ANTIGEN DX 0.80 <=4.00 ng/mL [facility] 06/05/2025 8:53 AM EDT 06/05/2025 8:54 AM EDT Narrative [facility] - 06/05/2025 10:15 AM EDT Generic External Data Provider [facility] F inal Result [facility] * (ABNORMAL) ALL CBC WITH AUTO DIFF (04/04/2025 8:47 AM EDT) TB WBC 8.8 4.0 - 11.0 10 3/uL [...] [facility] - 04/04/2025 9:01 AM EDT Robin Epps MD [facility] Final Result [facility] * (ABNORMAL) ALL BASIC METABOLIC PANEL (04/04/2025 8:47 AM EDT) Pathologist [facility] SODIUM 138 136 - 145 mmol/L [facility]H POTASSIUM 3.4(L) 3.5 - 5.1 mmol/L [facility] CHLORIDE 102 98 - 107 mmol/L [facility] CARBON DIOXIDE 28.1 21.0 - 32.0 mmol/L [facility] ANION GAP 11.3 [facility] GLUCOSE 101 74 - 106 mg/dL [facility] BLOOD UREA NITROGEN 18.0 7.0 - 18.0 mg/dL [facility] CREATININE 0.91 0.70 - 1.30 mg/dL TBH TBH EGFR-AF TUVALUAN >60 >=60 mL/min/1.7 3m 2 TBH TBH EGFR-NON AF TUVALUAN >60 >=60 mL/min/1.7 3m 2 TBH BUN CREATININE RATIO 19.8 TBH CALCIUM 9.2 8.5 - 10.1 mg/dL TB 04/04/2025 8:47 AM EDT 04/04/2025 8:51 AM EDT Narrative [facility] - 04/04/2025 10:29 AM EDT Robin COLEISYELAINA Final Result [facility] * CA ECHO DOPPLER COMPLETE (03/29/2025 5:41 PM EDT) Anatomical Region Laterality Modality Other 03/29/2025 5:41 PM EDT Narrative 03/29/2025 5:43 [place] [address] Cardiology Report Signed Patient: MATEO STEARNS MR#: [id number] : 1960 Acct:[id number] Age/Sex: 64 / M ADM Date: 03/29/25 Loc: CARD Attending Dr: RENE CLARK Ordering Physician: RENE CLARK Date of Service: 03/29/25 Procedure(s): CA echo doppler complete Accession Number(s): [id number] cc: Kathie Sánchez ADULT MINISTRIES DIRECTOR; RENE CLARK Patient Name: MATEO STEARNS MR#: [id number] : 1960 Exam Date: 03/29/2025 Ordering Doctor: [...] Area (VTI): 3.36 cm2, 3.36 cm2 Deceleration Mathews: Pressure Half-Time: Peak Velocity(Antegrade Flow): 0.82 m/s [...] M.D. Signed By: 03/29/251742 DD/ 40 TD/TT: Hand Loom Weaver: Procedure Note Radiology, Radiologist, MD - 03/29/2025 [place] [address] Cardiology Report Signed Patient: MATEO STEARNS WMR#: [id number] : 1960cct:[id number] Age/Sex: 64 / MADM Date: 03/29/25 Loc: CARD Attending Dr: RENE CLARK Ordering Physician: RENE CLARK Date of Service: 03/29/25 Procedure(s): CA echo doppler complete Accession Number(s): [id number] cc: Kathie Sánchez ADULT MINISTRIES DIRECTOR; RENE CLARK Patient Name: MATEO STEARNS MR#: [id number] : 1960 Exam Date: 03/29/2025 Ordering Doctor: [...] Area (VTI): 3.36 cm2, 3.36 cm2 Deceleration Mathews: Pressure Half-Time: Peak Velocity(Antegrade Flow): 0.82 m/s [...] Renteria M.D. Signed By:03/29/251742 DD/ 40 TD/TT: Hand Loom Weaver: Generic External Data Provider [facility] Final Result * NM SANDI PERF SPECT REST STR (03/29/2025 1:42 PM EDT) Anatomical Region Laterality Modality Other 03/29/2025 1:42 PM EDT Narrative 03/29/2025 1:43 [place] [address] Nuclear Medicine Report Signed Patient: MATEO STEARNS MR#: [id number] : 1960 Acct:[id number] Age/Sex: 64 / M ADM Date: 03/29/25 Loc: CARD Attending Dr: RENE CLARK Ordering Physician: RENE CLARK Date of Service: 03/29/25 Procedure(s): NM sandi perf SPECT rest str Accession Number(s): [id number] cc: Kathie Sánchez NP; RENE CLARK Patient Name: MATEO STEARNS MR#: [id number] : 1960 Exam Date: 03/29/2025 Ordering Doctor: DR RENE MOUKARBEL M.D. RADIOLOGY REPORT PROCEDURE: NM SANDI PERF [...] the study was pending per attending physician [facility]. For more details, please see separate cardiac [...] Signed By: 03/29/25 1343 DD/ 1342 TD/TT: Hand Loom Weaver: Procedure Note Radiology, Radiologist, MD - 03/29/2025 [place] [address] Nuclear Medicine Report Signed Patient: MATEO STEARNS WMR#: [id number] : 8Acct:[id number] Age/Sex: 64 / MADM Date: 03/29/25 Loc: CARD Attending Dr: RENE CLARK Ordering Physician: RENE CLARK Date of Service: 03/29/25 Procedure(s): NM sandi perf SPECT rest str Accession Number(s): [id number] cc: Kathie Sánchez NP; RENE CLARK Patient Name: MATEO STEARNS MR#: [id number] : 1960 Exam Date: 03/29/2025 Ordering Doctor: [...] the study was pending per attending physician [facility]. For more details,please see separate cardiac stress [...] M.D. Signed By:03/29/25 1343 DD/ 1342 TD/TT: Hand Loom Weaver: Generic External Data Provider [facility] IM[facility] Final Result from Last 3 Months Insurance [employer] MEDICAID [place] Care Teams Director Of Leadership Development Relationship Specialty Start Date End Date Kathie Sánchez NP [address] [place] [address] PCP - Crow LAFLEUR 12/29/23 Kathie Sánchez NP [address] [place] [address] Nurse Practitioner Family Medicine 10/03/23 Kathie Sánchez NP [address] [place] [address] Nurse Practitioner Family Medicine 02/28/24 Andrade Pendleton OD [facility] [place] [address] Referring Physician Optometry 01/02/25
--- NOTE | 2025-06-10 18:45 | PM.CACN ---
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 He also has a penetrating thoracic aortic ulcer, for which intervention was aborted due to extensive cartilage calcification, and a recent conservatively managed hip fracture. He was transferred from the residential to the emergency department with chest pressure and was found to be in rapid atrial fibrillation with rates in the 180s. He was treated with IV Cardizem and converted to normal sinus rhythm. Imaging also revealed a left basilar pneumonia. Today he is evaluated at the bedside. He is alert but appears in a depressed mood. He remains on 5 L nasal cannula, consistent with his baseline. He was transitioned to DNR/comfort care earlier today. He denies chest pain, palpitations, dizziness, or lower extremity edema. Endorses STRATTON, reported as stable. Though he has refused most medications today, he did take his morning dose of Cardizem. He remains in sinus rhythm and is hemodynamically stable. Review of Systems ROS Status of ROS 10 or more systems reviewed and unremarkable except as noted in history and below [facility] Medical History (Updated 06/09/25 @ 09:33 by Ernesto Ortega MD) Closed fracture of neck of right femur with routine healing ?S72.001D - Fracture of unspecified part of neck of right femur, subsequent encounter for closed fracture with routine healing (ICD-10) HTN (hypertension) ?I10 - Essential (primary) hypertension (ICD-10) Paroxysmal atrial fibrillation ?I48.0 - Paroxysmal atrial fibrillation (ICD-10) Declining functional status ?R53.81 - Other malaise (ICD-10) Nausea ?R11.0 - Nausea (ICD-10) Malnutrition ?E46 - Unspecified protein-calorie malnutrition (ICD-10) Anorexia ?R63.0 - Anorexia (ICD-10) Right upper lobe pneumonia ?J18.9 - Pneumonia, unspecified organism (ICD-10) Chronic hypoxic respiratory failure ?J96.11 - Chronic respiratory failure with hypoxia (ICD-10) COPD (chronic obstructive pulmonary disease) ?J44.9 - Chronic obstructive pulmonary disease, unspecified (ICD-10) Closed fracture of proximal end of femur ?S72.009A - Fracture of unspecified part of neck of unspecified femur, initial encounter for closed fracture (ICD-10) Influenza A ?J10.1 - Influenza due to other identified influenza virus with other respiratory manifestations (ICD-10) Fall from standing ?W19.XXXA - Unspecified fall, initial encounter (ICD-10) Upper respiratory infection ?J06.9 - Acute upper respiratory infection, unspecified (ICD-10) Community acquired pneumonia ?J18.9 - Pneumonia, unspecified organism (ICD-10) Thoracic back pain ?M54.6 - Pain in thoracic spine (ICD-10) Enteritis ?K52.9 - Noninfective gastroenteritis and colitis, unspecified (ICD-10) Surgical History S/P bilateral hip replacements ?Z96.643 - Presence of artificial hip joint, bilateral (ICD-10) Family History Mother Family history of CHF (congestive heart failure) Father Family history of COPD (chronic obstructive pulmonary disease) Uncle Family history of cancer Son Family history of diabetes mellitus Social History Within the past year, how often did you have a drink containing alcohol: never Within the past year, how often did you have six or more drinks on one occasion: never Score interpretation: A score less than 4 is consistent with normal alcohol consumption. Smoking status: Former smoker Non-prescribed substance use: denies use Previous occupational history: retired/ disabled Highest level of school completed/degree received: 9th grade Are you now , , , , never or living with a partner: Little interest or pleasure in doing things: not at all Feeling down, depressed, or hopeless: not at all Do you think of yourself as: straight/heterosexual Gender Identity: male Meds Home Medications and Allergies Home Medications ?Medication ?Instructions ?Recorded ?Confirmed ?Type albuterol sulfate 90 mcg/actuation 2 inh inhalation Q4H PRN shortness 01/05/24 06/08/25 History aerosol inhaler of breath or wheezing budesonide-formoterol HFA 160 2 puff inhalation BID 01/05/24 06/08/25 History mcg-4.5 mcg/actuation aerosol inhaler pantoprazole 40 mg tablet,delayed 40 mg PO DAILY 01/05/24 06/08/25 History release roflumilast 500 mcg tablet 500 mcg PO DAILY 01/05/24 06/08/25 History cyclosporine 0.05 % eye drops in a 1 drp ophthalmic (eye) BID 01/14/25 06/08/25 History dropperette albuterol sulfate 2.5 mg/3 mL 2.5 mg (3 mL) inhalation Q6H PRN 01/18/25 06/08/25 Rx (0.083 %) solution for nebulization shortness of breath or wheezing #90 mL metoclopramide HCl 10 mg tablet 10 mg PO Q8H PRN nausea and 02/23/25 06/08/25 History vomiting apixaban 5 mg tablet (Eliquis) 5 mg PO Q12H 06/08/25 06/08/25 History atorvastatin 40 mg tablet 40 mg PO DAILY 06/08/25 06/08/25 History buspirone 10 mg tablet 10 mg PO TID 06/08/25 06/09/25 History clopidogrel 75 mg tablet 75 mg PO DAILY 06/08/25 06/08/25 History fluticasone propionate 50 1 spray intranasal DAILY 06/08/25 06/08/25 History mcg/actuation nasal spray,suspension hydrocodone 5 mg-acetaminophen 325 1 tab PO Q4H PRN pain 06/08/25 06/08/25 History mg tablet mirtazapine 30 mg tablet 30 mg PO DAILY 06/08/25 06/08/25 History tiotropium bromide 2.5 2 inh inhalation Q24H 06/08/25 06/08/25 History mcg/actuation mist for inhalation (Spiriva Respimat) Allergies Allergy/AdvReac Type Severity Reaction Status Date / Time No Known Drug Allergies Allergy Verified 06/08/25 20:51 Exam Constitutional Vital Signs, click to edit/add: Last Vital Signs Temp 98.7 F 06/10/25 12:00 Pulse 77 06/10/25 17:52 Resp 20 06/10/25 12:00 BP 118/76 06/10/25 12:00 Pulse Ox 96 06/10/25 12:00 O2 Del Method Nasal Cannula 06/10/25 12:00 O2 Flow Rate 4 06/10/25 12:00 Common normals: no apparent distress and oriented x3 General appearance: frail appearing Nutritional appearance: cachectic Chest Chest: symmetrical chest wall rise Cardio Common normals: no JVD and regular rhythm Rate: regular rate Rhythm: regular rhythm Peripheral pulses: pulses 2+ throughout Neuro Sensorium/orientation: awake and alert Psych Mood and affect: depressed mood Results Labs and Meds Lab results: Cardiac Enzymes 06/10/25 Range/Units 05:37 AST 189 H (15-37) U/L CBC 06/10/25 Range/Units 05:37 WBC 6.1 (4.0-11.0) 10^3/uL RBC 3.99 L (4.70-6.10) 10^6/uL Hgb 10.4 L (14.0-18.0) g/dL Hct 33.8 L (42.0-54.0) % Plt Count 268 (150-450) 10^3/uL Comprehensive Metabolic Panel 06/10/25 Range/Units 05:37 Sodium 144 (136-145) mmol/L Potassium 3.4 L (3.5-5.1) mmol/L Chloride 109 H (98-107) mmol/L Carbon Dioxide 24.1 (21.0-32.0) mmol/L BUN 11.0 (7.0-18.0) mg/dL Creatinine 0.74 (0.70-1.30) mg/dL Glucose 83 (74-106) mg/dL Calcium 8.7 (8.5-10.1) mg/dL AST 189 H (15-37) U/L ALT 144 H (16-63) U/L Alkaline Phosphatase 76 (46-116) U/L Total Protein 6.0 L (6.4-8.2) g/dL Albumin 1.8 L (3.4-5.0) g/dL Intake and Output 06/10/25 06/10/25 06/10/25 07:59 15:59 23:59 Intake Total 300 / 1500 50 / 50 Output Total 400 / 650 Balance -100 / 850 50 / 50 Intake: IV 300 / 1350 50 / 50 Azithromycin 500 mg In 0.9 % 250 / 250 Sodium Chloride 250 ml @ 250 mls/hr IV Q24H [facility] Rx#:[id number] Piperacillin Sodium/Tazobactam 50 / 100 50 / 50 3.375 gm In 0.9 % Sodium Chloride 50 ml @ 12.5 mls/hr IV Q8H [facility] Rx#:[id number] Output: Urine 400 / 650 Other: # Bowel Movements 1 Weight 61.4 kg Assessment and Plan Assessment and Plan (1) Sepsis: (2) Pneumonia involving right lung: (3) Atrial fibrillation with rapid ventricular response: (4) Acute and chronic respiratory failure with hypoxia: (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 Remote history of paroxysmal atrial fibrillation first documented approximately 8 years ago. Presented in rapid atrial fibrillation with RVR (HR 180s), successfully converted to normal sinus rhythm with IV Cardizem. Transitioned to oral Cardizem CD 120 mg daily and has remained in sinus rhythm since. TTE on 03/29/2025 showed preserved LVEF (55%), mild pulmonary hypertension (RVSP 36 mmHg), and no significant valvular disease. ? Continue apixaban 5 mg BID for stroke prevention ? Continue Cardizem CD 120 mg daily for rate control #Elevated Troponin / Coronary Artery Disease Patient denies chest pain. Known CAD: two 90% stenoses in the proximal and mid-LAD treated with a single Synergy XD drug-eluting stent on 04/05/2025; severe proximal 2nd OM stenosis managed conservatively. Serial troponins trended down: 248--186--155--72.1 (06/10/2025), consistent with Type II NSTEMI likely due to demand ischemia in the setting of rapid atrial fibrillation and concurrent pneumonia. No ECG changes or anginal symptoms to suggest Type I CO. ? Continue clopidogrel 75 mg daily (post-MIRANDA) ? Continue atorvastatin 40 mg daily ? No further ischemic workup indicated at this time #Penetrating Thoracic Aortic Ulcer Known penetrating thoracic aortic ulcer. Attempted endovascular intervention in early April was aborted due to extensive calcification of the costal cartilage and inability to safely access the aorta. ? Follow-up with vascular surgery as outpatient for continued monitoring and management #Pneumonia Left basilar pneumonia diagnosed on imaging, currently being treated with antibiotics. Plan Overview: ? Continue Cardizem CD 120 mg daily ? No further inpatient ischemic evaluation needed ? Outpatient cardiology follow-up Deepak Thomas, [facility] Cardiovascular Medicine
[2025-06-10] MEDS: MIRTAZAPINE 15 MG TABLET 30 MG PO (21:04)
[2025-06-10] MEDS: ATORVASTATIN CALCIUM 40 MG TABLET PO (21:04)
[2025-06-11] VITALS (22 sets, daily range): BP systolic 111–147; BP diastolic 63–76; PULSE 74–140; TEMP 36.3–37.1; O2SAT 90–95
[2025-06-11] MEDS: AZITHROMYCIN 500 MG in 0.9 % SODIUM CHLORIDE 250 ML 250 MG IV (01:37)
[2025-06-11] MEDS: PIPERACILLIN SODIUM/TAZOBACTAM 3.375 GM in 0.9 % SODIUM CHLORIDE 50 ML IV (03:49)
[2025-06-11] MEDS: BUSPIRONE HCL 10 MG TABLET PO ×3 (06:15→21:36)
[2025-06-11] MEDS: PANTOPRAZOLE SODIUM 40 MG TABLET.DR PO (06:15)
[2025-06-11] MEDS: POTASSIUM CHLORIDE 10 MEQ ER TABLET 20 MEQ PO (08:01)
[2025-06-11] MEDS: CITALOPRAM HYDROBROMIDE 20 MG TABLET 10 MG PO (08:01)
[2025-06-11] MEDS: DILTIAZEM HCL 120 MG CAP.ER.24H PO (08:02)
[2025-06-11] MEDS: APIXABAN 5 MG TABLET PO ×2 (08:02→21:36)
[2025-06-11] MEDS: CYCLOSPORINE 0.05% OP (08:02)
[2025-06-11] MEDS: CLOPIDOGREL BISULFATE 75 MG TABLET PO (08:02)
[2025-06-11] MEDS: ROFLUMILAST 500 MCG TABLET PO (08:03)
[2025-06-11] MEDS: IPRATROPIUM/ALBUTEROL SULFATE 3 ML AMPUL.NEB IH ×2 (09:11→20:19)
--- NOTE | 2025-06-11 09:20 | CM.NOTE ---
Rounds made with Dr. Ortega, discussed with pt plan of care. No discharge today. Pt requesting to speak with Hospice for discharge planning.
--- NOTE | 2025-06-11 11:31 | PM.PN ---
Progress Note: Subjective Subjective Interval history: Patient is feeling better compared to when he came in however is still sick and tired living like this out of breath. He does not want aggressive care. He is requesting hospice enrollment. Exam Narrative Exam Narrative: Wake, alert and coherent. Somewhat disgruntled and unhappy Cachectic and frail in appearance. Bitemporal muscle wasting. Upper and lower extremities muscle wasting and atrophy. Loss of subcutaneous fat. Chest exam reveals diminished breath sounds on the right side and the rhonchi. Heart is regular. Abdomen soft, scaphoid in appearance. Lower extremities no edema. 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
--- NOTE | 2025-06-11 11:32 | P.PN_ITS ---
Progress Note: Subjective Subjective Interval history: Patient is feeling better compared to when he came in however is still sick and tired living like this out of breath. He does not want aggressive care. He is requesting hospice enrollment. 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 Echo echocardiogram completed in March 2025 showed normal EF. No significant valvular disease History of A-fib. Patient is on Eliquis Resume Eliquis. Started patient on Cardizem CD 120 mg daily. Elevated troponin, type II high demand secondary to RVR and pneumonia Patient reported that has had stent in his heart before. He is on Plavix as well. Patient had stress test in March which showed evidence of apical ischemia Continue Plavix. Continue rate control and anticoagulation. Cardiology team did not recommend any additional cardiovascular invention given his request to change his CODE STATUS to comfort care and not to receive any aggressive medical care Large right-sided pneumonia. Suspect aspiration versus healthcare associated pneumonia. Acute on chronic hypoxic respiratory failure patient is on 2 L oxygen at the nursing facility Underlying COPD and previous smoking Requested swallow eval. Start patient on Zosyn and Zithromax MBS if could be done here at [place]. Monitor oxygenation level. Blood cultures pending. Cachexia, frailty, muscle wasting, severe protein calorie malnutrition Start patient on Ensure twice a day This will need to be investigated further. Patient may have malabsorption. Patient may have underlying malignancy. This would need to be addressed to rule out underlying malignancy to be handled by PCP postdischarge from acute care. Patient however does not want any further medical care, investigation, diagnostic or therapeutic testing. Anemia, no evidence of acute blood loss. Patient will likely require to have anemia workup to be done in the outpatient setting to be handled by PCP in collaboration with other needed outpatient providers. This may include but not limited to EGD, colonoscopy, referral to see hematology and other needed age-appropriate cancer screening. Elevated liver transaminase. Unknown etiology. No tenderness in the right upper quadrant Could be reactive secondary to a right basilar pneumonia Request hepatitis panel. Request ultrasound of the liver. This came back unremarkable. Some dilatation of the duct. No evidence of cholecystitis or cholelithiasis. No other unusual appearance of the liver Chronic medical conditions not listed above, incidental findings seen on labs and imaging. These would need to be addressed. Could be addressed when time and condition are appropriate. Could be addressed in the outpatient setting by PCP collaboration with other needed outpatient providers. Goals of care discussion. Please refer to advance care planning completed yesterday. Patient changes CODE STATUS DNR CCA. Patient is adamant about meeting with hospice team. He is sick and tired living like this hungry for air continuously. He does not want his daughter and son to get involved in decision-making process. He stated that he makes a decision for himself. At this time I would have to respect his wishes and seek hospice evaluation and the potential hospice enrollment.
--- NOTE | 2025-06-11 12:24 | SWNOTE1 ---
SW received a message from nurse, hospice order has been placed by physician. ROMA sent referral to [facility].
--- NOTE | 2025-06-11 13:45 | SWNOTE1 ---
SW called [facility] and they are on phone with pt right now and will call ROMA back to update.
--- NOTE | 2025-06-11 14:12 | SWNOTE1 ---
SW received call from [facility] and there next available appointment is between 9:30 and 10:00am tomorrow (06/12/25). SW updated nurse. SW to speak with pt as well.
--- NOTE | 2025-06-11 14:41 | SWNOTE1 ---
SW stopped in to speak with pt. He did get phone call from [facility] and they are coming tomorrow morning. Pt does not want family here.
[2025-06-11] MEDS: MIRTAZAPINE 15 MG TABLET 30 MG PO (21:35)
[2025-06-11] MEDS: ATORVASTATIN CALCIUM 40 MG TABLET PO (21:36)
[2025-06-12] VITALS (21 sets, daily range): BP systolic 121–147; BP diastolic 59–75; PULSE 74–112; TEMP 36.3–36.8; O2SAT 90–96
[2025-06-12] MEDS: BUSPIRONE HCL 10 MG TABLET PO ×2 (06:44→14:13)
[2025-06-12] MEDS: PANTOPRAZOLE SODIUM 40 MG TABLET.DR PO (06:44)
[2025-06-12] MEDS: DILTIAZEM HCL 120 MG CAP.ER.24H PO (08:08)
[2025-06-12] MEDS: ROFLUMILAST 500 MCG TABLET PO (08:09)
[2025-06-12] MEDS: CLOPIDOGREL BISULFATE 75 MG TABLET PO (08:09)
[2025-06-12] MEDS: CITALOPRAM HYDROBROMIDE 20 MG TABLET 10 MG PO (08:10)
[2025-06-12] MEDS: APIXABAN 5 MG TABLET PO (08:10)
[2025-06-12] MEDS: IPRATROPIUM/ALBUTEROL SULFATE 3 ML AMPUL.NEB IH (08:50)
--- NOTE | 2025-06-12 09:50 | CM.NOTE ---
Reviewed plan of care with Dr. Ortega. Plan for Hospice consult today ~[id number].
--- NOTE | 2025-06-12 09:57 | SWNOTE1 ---
SW stopped in to speak with pt, [facility] in room as well. They are discussing hospice services. Hospice nurse voiced that he does not want to return to [facility]. SW did let pt know several times that SW can look in to other facilities. Pt's biggest thing is that he will not eat at [facility] as he does not like the food. SW did ask pt if he went to another facility, would he consider eating? Pt voiced that he is just done and does not think he will eat anyways. Hospice did let pt know that if he meets criterai they can come in to the [facility]. They will be able to send aides in to assist a few days of the week as well. They can also have a [place] and a volunteer come in as well to sit with him if he would like. They will also have a nurse (director case) follow him at [facility] and she will come in at times as well. She did express that the facility will still be doing the main care, but they would be extra support that comes in. There main goal is to keep him comfortable, but they do not advance the process in any way. Pt voiced understanding. Pt would like the hospice aides, nurse, and a volunteer come in to see him. He voiced he has his own hospice nurse practitioner. Pt voiced he is alright with returning to [facility] with hospice coming in. Hospice nurse will make phone call to doctor and see if pt meets criteria, she will then update ROMA. ROMA updated nurse.
--- NOTE | 2025-06-12 10:03 | PM.PN ---
Progress Note: Subjective Subjective Interval history: Patient is feeling better compared to when he came in however is still sick and tired living like this out of breath. He does not want aggressive care. He is requesting hospice enrollment. Patient continues to insist on signing up with hospice. He does not want any care. Nursing staff reported that patient is refusing to allow nursing to use an antibiotic Zosyn Exam Narrative Exam Narrative: Wake, alert and coherent. Somewhat disgruntled and unhappy Cachectic and frail in appearance. Bitemporal muscle wasting. Upper and lower extremities muscle wasting and atrophy. Loss of subcutaneous fat. Chest exam reveals diminished breath sounds on the right side and the rhonchi. Heart is regular. Abdomen soft, scaphoid in appearance. Lower extremities no edema. 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 Echo echocardiogram completed in March 2025 showed normal EF. No significant valvular disease History of A-fib. Patient is on Eliquis Resume Eliquis. Started patient on Cardizem CD 120 mg daily. Elevated troponin, type II high demand secondary to RVR and pneumonia Patient reported that has had stent in his heart before. He is on Plavix as well. Patient had stress test in March which showed evidence of apical ischemia Continue Plavix. Continue rate control and anticoagulation. Cardiology team did not recommend any additional cardiovascular invention given his request to change his CODE STATUS to comfort care and not to receive any aggressive medical care Large right-sided pneumonia. Suspect aspiration versus healthcare associated pneumonia. Acute on chronic hypoxic respiratory failure patient is on 2 L oxygen at the nursing facility Underlying COPD and previous smoking Requested swallow eval. Start patient on Zosyn and Zithromax unfortunately, patient is refusing to allow nurse administer antibiotic intravenously as reported by pharmacy Blood cultures is negative. Change antibiotic to oral as patient is refusing to allow intravenous administration of antibiotic Cachexia, frailty, muscle wasting, severe protein calorie malnutrition Start patient on Ensure twice a day This will need to be investigated further. Patient may have malabsorption. Patient may have underlying malignancy. This would need to be addressed to rule out underlying malignancy to be handled by PCP postdischarge from acute care. Patient however does not want any further medical care, investigation, diagnostic or therapeutic testing. Anemia, no evidence of acute blood loss. Patient will likely require to have anemia workup to be done in the outpatient setting to be handled by PCP in collaboration with other needed outpatient providers. This may include but not limited to EGD, colonoscopy, referral to see hematology and other needed age-appropriate cancer screening. Elevated liver transaminase. Unknown etiology. No tenderness in the right upper quadrant Could be reactive secondary to a right basilar pneumonia Request hepatitis panel. Request ultrasound of the liver. This came back unremarkable. Some dilatation of the duct. No evidence of cholecystitis or cholelithiasis. No other unusual appearance of the liver Chronic medical conditions not listed above, incidental findings seen on labs and imaging. These would need to be addressed. Could be addressed when time and condition are appropriate. Could be addressed in the outpatient setting by PCP collaboration with other needed outpatient providers. Goals of care discussion. Please refer to advance care planning completed on 06/10. Patient changes CODE STATUS DNR CCA. Patient is adamant about meeting with hospice team. He is sick and tired living like this hungry for air continuously. He does not want his daughter and son to get involved in decision-making process. He stated that he makes a decision for himself. At this time I would have to respect his wishes and seek hospice evaluation and the potential hospice enrollment. 06/12: Patient does not want any additional medical care. Patient wants to sign up with hospice. Hospice meeting is today. Patient could qualify for hospice based on chronic hypoxic respiratory failure, emphysema, cachexia, protein calorie malnutrition and weight loss. Once again, patient does not want to involve his son and daughter in the decision making. He did not give me permission to communicate with his kids.
[2025-06-12] MEDS: AMOXICILLIN/POT CLAV 875-125 MG TABLET 1 TAB PO (10:12)
--- NOTE | 2025-06-12 10:49 | P.DS_ITS ---
DS: Providers Provider Date of admission: 06/09/25 04:30 Primary care physician: Kathie Sánchez NP Consults: 06/09/25 07:56 Clinical Bedside Swallow Eval and Treat Routine Reason for consultation: Suspect aspiration Consult to Cardiology Routine Reason for consultation: A fib RVR with NSTEMI 06/10/25 Occupational Therapy Eval and Treat Routine Reason for consultation: weakness Physical Therapy Eval and Treat Routine Reason for consultation: weakness 06/10/25 09:25 Consult to Cardiology Routine Reason for consultation: NSTEMI, distal aortic arch aneurysm recommendation Modified Barium Swallow Evaluate and Treat Consult Routine Reason for consultation: Dysphagia 06/11/25 11:30 Consult to Hospice Routine Reason for consultation: Enrollment into hospice program requested by patient, diagnosis hypoxic res DS: Diagnosis Discharge Diagnosis (1) Sepsis: (2) Pneumonia involving right lung: (3) Atrial fibrillation with rapid ventricular response: (4) Acute and chronic respiratory failure with hypoxia: (5) 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 Rajput is a 64-year-old gentleman who came in with cough, shortness of breath and wheezing and was found to have the following A-fib with RVR, converted to sinus rhythm. Echo echocardiogram completed in March 2025 showed normal EF. No significant valvular disease History of A-fib. Patient is on Eliquis Resume Eliquis. Started patient on Cardizem CD 120 mg daily. Elevated troponin, type II high demand secondary to RVR and pneumonia Patient reported that has had stent in his heart before. He is on Plavix as well. Patient had stress test in March which showed evidence of apical ischemia Continue Plavix. Continue rate control and anticoagulation. Cardiology team did not recommend any additional cardiovascular invention given his request to change his CODE STATUS to comfort care and not to receive any aggressive medical care Large right-sided pneumonia. Suspect aspiration versus healthcare associated pneumonia. Acute on chronic hypoxic respiratory failure patient is on 2 L oxygen at the [facility] facility Underlying COPD and previous smoking Requested swallow eval. Start patient on Zosyn and Zithromax unfortunately, patient is refusing to allow nurse administer antibiotic intravenously as reported by pharmacy Blood cultures is negative. Change antibiotic to oral as patient is refusing to allow intravenous administration of antibiotic Cachexia, frailty, muscle wasting, severe protein calorie malnutrition Start patient on Ensure twice a day This will need to be investigated further. Patient may have malabsorption. Patient may have underlying malignancy. This would need to be addressed to rule out underlying malignancy to be handled by PCP postdischarge from acute care. Patient however does not want any further medical care, investigation, diagnostic or therapeutic testing. Anemia, no evidence of acute blood loss. Patient will likely require to have anemia workup to be done in the outpatient setting to be handled by PCP in collaboration with other needed outpatient providers. This may include but not limited to EGD, colonoscopy, referral to see hematology and other needed age-appropriate cancer screening. Elevated liver transaminase. Unknown etiology. No tenderness in the right upper quadrant Could be reactive secondary to a right basilar pneumonia Request hepatitis panel. Request ultrasound of the liver. This came back unremarkable. Some dilatation of the duct. No evidence of cholecystitis or cholelithiasis. No other unusual appearance of the liver Chronic medical conditions not listed above, incidental findings seen on labs and imaging. These would need to be addressed. Could be addressed when time and condition are appropriate. Could be addressed in the outpatient setting by PCP collaboration with other needed outpatient providers. Goals of care discussion. Please refer to advance care planning completed on 06/10. Patient changes CODE STATUS DNR CCA. Patient is adamant about meeting with hospice team. He is sick and tired living like this hungry for air continuously. He does not want his daughter and son to get involved in decision-making process. He stated that he makes a decision for himself. At this time I would have to respect his wishes and seek hospice evaluation and the potential hospice enrollment. 06/12: Patient does not want any additional medical care. Patient wants to sign up with hospice. Patient met with the hospice team. He was accepted to be admitted into the hospice program. Patient will be discharged to the nursing facility under hospice care. Time Spent with Patient Time attestation: Total time spent providing and/or coordinating discharge services: Exam Constitutional Vital Signs, click to edit/add: Last Vital Signs Temp 98.2 F 06/12/25 08:05 Pulse 112 H 06/12/25 09:59 Resp 18 06/12/25 00:00 BP 121/75 07/16/25 08:08 Pulse Ox 95 06/12/25 09:59 O2 Del Method Nasal Cannula 06/12/25 09:17 O2 Flow Rate 4 06/12/25 08:05 DS: Data Data Completed and Pending Labs on day of discharge: Preliminary micro results at discharge 06/09/25 02:20 Blood Culture Result 2 - Preliminary Blood - Right Antecubital NO GROWTH AT 36-48 HOURS. FINAL TO FOLLOW. 06/09/25 01:50 Blood Culture Result 1 - Preliminary Blood - Right Antecubital NO GROWTH AT 36-48 HOURS. FINAL TO FOLLOW. Discharge Plan Discharge Disposition: Hospice - Medical Facility Condition: Fair Discharge Medications: New citalopram 20 mg Tablet 10 mg PO QD Qty: 0 0RF docusate sodium 100 mg Capsule 100 mg PO BID PRN (Reason: Constipation) Qty: 0 0RF diltiazem HCl 120 mg Capsule,Extended Release 24hr 120 mg PO QD Qty: 0 0RF amoxicillin-pot clavulanate 875-125 mg Tablet 1 tab PO BID Qty: 0 0RF Continued Eliquis 5 mg tablet 5 mg PO Q12H atorvastatin 40 mg tablet 40 mg PO DAILY buspirone 10 mg tablet 10 mg PO TID clopidogrel 75 mg tablet 75 mg PO DAILY fluticasone propionate 50 mcg/actuation spray,suspension 1 spray INTRANASAL DAILY mirtazapine 30 mg tablet 30 mg PO DAILY Spiriva Respimat 2.5 mcg/actuation mist 2 inh INHALATION Q24H albuterol sulfate 90 mcg/actuation HFA aerosol inhaler 2 inh INHALATION Q4H PRN (Reason: shortness of breath or wheezing) budesonide-formoterol 160-4.5 mcg/actuation HFA aerosol inhaler 2 puff INHALATION BID pantoprazole 40 mg tablet,delayed release (DR/EC) 40 mg PO DAILY roflumilast 500 mcg tablet 500 mcg PO DAILY cyclosporine 0.05 % dropperette 1 drp OPHTHALMIC (EYE) BID Discontinued hydrocodone-acetaminophen 5-325 mg tablet 1 tab PO Q4H PRN (Reason: pain) albuterol sulfate 2.5 mg /3 mL (0.083 %) solution for nebulization 2.5 mg inhalation Q6H PRN (Reason: shortness of breath or wheezing) Qty: 90 0RF metoclopramide HCl 10 mg tablet 10 mg PO Q8H PRN (Reason: nausea and vomiting) Print Language: Estonian Forms: Portal Instructions
--- NOTE | 2025-06-12 11:49 | SWNOTE1 ---
[facility] nurse informed pt's nurse that pt qualifies and he has signed on to [facility] services. SW notified Dr. Ortega and let him know that [facility] is ready for pt once he is stable for discharge. Discharge orders have been placed, SW to work on transportation. Pt will need stretcher transport.
--- NOTE | 2025-06-12 11:51 | PM.EN ---
Event Note Event Note: I went back and to talk to patient about his care and hospice enrollment. Patient feels so much relieved now that he is under hospice care. He does not want any acute medical care. He wants to be comfortable and allow nature to take its course.
--- NOTE | 2025-06-12 11:53 | SWNOTE1 ---
Pt is ready for d/c today. Called [facility] for transportation and they can pickler helper at 1:30. SW notified nurse and [facility] of pickler helper time.
--- NOTE | 2025-06-12 15:10 | PC.NURSE ---
Addendum entered by Lavinia Coronado RN 06/12/25 15:16: Original report was given at 1418 to Nurse Bajwa. Nurse Bajwa was called back regarding the Augmentin at 1505. Original Note: Report given to nurse Bajwa at the [facility] regarding pt including discharge instructions and medications. Noted that pt got his 1400 Buspar and the Augmentin will be a [address] Ortega. Nurse Bajwa denies further needs or questions at this time.
== END 2025-06-12 15:00 | DRG 871 ==
LOC: ER 06-09 01:17 → MS 06-10 09:30
PROVIDERS: Emergency Medicine; Admitting Provider Internal Medicine; Emergency Provider Emergency Medicine; PCP Nurse Practitioner; Visit Provider Internal Medicine
DX: A41.9 Sepsis, unspecified organism (principal); E43 Unspecified severe protein-calorie malnutrition; J18.9 Pneumonia, unspecified organism; J96.21 Acute and chronic respiratory failure with hypoxia; I21.A1 Myocardial infarction type 2; R64 Cachexia; I48.0 Paroxysmal atrial fibrillation; Z87.891 Personal history of nicotine dependence; Z79.899 Other long term (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 therapy; I71.22 Aneurysm of the aortic arch, without rupture; M62.50 Muscle wasting and atrophy, not elsewhere classified, unspecified site; Z79.01 Long term (current) use of anticoagulants; Z79.02 Long term (current) use of antithrombotics/antiplatelets; Z99.81 Dependence on supplemental oxygen; D64.9 Anemia, unspecified; Z96.643 Presence of artificial hip joint, bilateral; I10 Essential (primary) hypertension; R74.01 Elevation of levels of liver transaminase levels; Z66 Do not resuscitate; Z74.09 Other reduced mobility; Z95.5 Presence of coronary angioplasty implant and graft; J43.9 Emphysema, unspecified; Z85.118 Personal history of other malignant neoplasm of bronchus and lung; I25.10 Atherosclerotic heart disease of native coronary artery without angina pectoris; I27.20 Pulmonary hypertension, unspecified; Z68.20 Body mass index [BMI] 20.0-20.9, adult
CPT/HCPCS: 36415; 71045; 71275; 76705; 80053; 80074; 83605; 83735; 83880; 84100; 84443; 84484; 85025; 85027; 85610; 87040; 92526; 92610; 93005; 94640; 94761; 96365; 96366; 96368; 96375; 96376; 99285; J0283; J0456; J1100; J2543; J3475; Q9967